=== PATIENT | male | born 1955 | race Caucasian/White ===

== ENCOUNTER 2018-06-24 04:25 | Inpatient (IN) | payer MEDICARE, OTHER, SELFPAY ==
[2018-06-24] VITALS (74 sets, daily range): BP systolic 102–145; BP diastolic 38–97; PULSE 65–83; RESP 8–36; TEMP 36.8–37.1; O2SAT 94–100
[2018-06-24] MEDS: Lactated Ringers 1,000 ML 1000 ML IV (04:33)
--- NOTE | 2018-06-24 04:36 | W.ED.GENAD ---
Discharge Plan Disposition Patient Disposition: [facility] INPATIENT Condition: Serious Discharge Details Chief Complaint: GI Bleed Clinical Impression: GI bleed, Chronic liver disease, Encephalopathy, hepatic Primary Care Provider: None,None ED Provider: Blake Zuniga [place] Meds and New Rx's Prescriptions: No Action nadolol 20 mg Tablet 20 mg PO DAILY RF: 0 lactulose 10 gram Packet 20 g PO DAILY RF: 0 Medical Decision Making Patient presenting with GI bleed. He is not tachycardic or hypotensive but he reports being on nadolol. He has been vomiting bile so this is not likely an upper GI source and definitely not variceal bleeding. 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 2 IVs are established. Labs including type and screen drawn and sent. Liter of LR and a dose of Zofran will be given. Patient's hemoglobin on the was close to 14. This morning it is down to 8. His ammonia is 150. His INR is 1.3. His platelets are 116. BUN is 57 with a creatinine of 0.85 suggesting an upper GI type bleed. I still suspect that he has a small bowel AVM as the cause of his GI bleed. I did speak to his GI physician at [facility]. Other than at some point confirming that the TIPS is still open and working normally there is nothing that they would necessarily do different other than transfuse and watch given the number of times he has been scoped previously to try to find the source. Patient discussed with our hospitalist, Dr. Mckenzie. I have ordered for 2 units of blood to be transfused and 2 units of blood to be available. CTA of the abdomen pelvis ordered to see if there is any blush in the intestinal tract. Blood bank informs me that the patient has multiple antibodies. Blood will need to come from the [facility] in [place]. His CTA is negative. Because of the lack of available blood here I did speak to [facility] hospitalist. They unfortunately are closed to transfers due to no beds. They have put the patient on list for transfer given the situation. He is stable here currently. I did speak to [facility] blood bank. For multiple antibodies they would also need to get blood from [place]. We will therefore keep the patient here in our ICU. We will try to stay ahead with blood and have four on hand at any one time. Case discussed with day hospitalist Dr. Wild. Patient admitted to the ICU. He remains hemodynamically stable while awaiting blood transfusion here Lab Data Lab results reviewed: Yes I reviewed the patient's lab results. ECG Data Attestation: I personally reviewed and interpreted this ECG (s) as follows: Prior ECG tracings: not available for review Interpretation: Sinus rhythm at 72. Normal axis and intervals. No ST changes. Normal EKG. HPI General Mode of arrival: EMS. Date/Time Provider Initiated Documentation: 06/24/18 04:33. Limitations to Documentation: no limitations. Information obtained by: patient. HPI Narrative: Patient presents by ambulance with a GI bleed. Patient has a history of liver disease status post TIPS. He also has esophageal varices which have been banded. He has had multiple episodes of GI bleeding. Typically they are unable to find the source according to him. His most recent GI bleed was last fall. He did receive transfusions. He has noticed black stool for the last day and a half. He is now noticing some reddish color in with a black stool. He has been vomiting but it is not coffee-ground or bloody. He is having bilious emesis. He does not have abdominal pain. He does feel weak, lightheaded and dizzy especially with standing. He denies having difficulty breathing. He had some chest tightness yesterday but not today. He has had episodes where he has had 1 or 2 black stools which then resolve. As this is been ongoing and he is becoming symptomatic he called EMS tonight. Related Data Home Medications Medication Instructions Recorded Confirmed lactulose 20 g PO DAILY 06/24/18 06/24/18 nadolol 20 mg PO DAILY 06/24/18 06/24/18 Allergies Allergy/AdvReac Type Severity Reaction Status Date / Time zolpidem [From Ambien] AdvReac Unverified 06/24/18 04:42 General Stated Complaint: GI Bleed BAKARI: 2 Review of Systems Constitutional Denies chills, Denies fever(s), Denies headache(s), Reports poor appetite and Reports weakness Eyes Denies change in vision and Denies eye pain ENT Denies vertigo, Reports dizziness, Denies otalgia, Denies facial pain, Denies headache(s), Denies nasal congestion, Denies neck pain and Denies sore throat Cardiovascular Reports chest pain (discomfort yesterday), Denies diaphoresis, Denies syncope, Reports lightheadedness, Denies palpitations and Denies dyspnea Respiratory Denies cough and Denies dyspnea Gastrointestinal Denies abdominal pain, Reports melena, Denies hematochezia, Denies coffee ground emesis, Reports loose stools, Reports nausea, Reports vomiting and Denies hematemesis Genitourinary Denies dysuria and Denies flank pain Musculoskeletal Denies back pain, Denies neck pain, Denies numbness and Denies tingling Integumentary/Breasts Denies rash Neurologic Denies vertigo, Reports dizziness, Denies syncope, Denies headache(s), Denies focal weakness, Denies numbness, Denies tingling and Reports weakness Endocrine Denies palpitations [facility] Medical History Esophageal varices (Chronic) Hepatitis C (Chronic) Liver disease, chronic (Chronic) Surgical History 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) Previous back surgery (Inactive) S/P hernia repair (Inactive) S/P shoulder surgery (Inactive) Social History Smoking/Tobacco Use Status: Never Alcohol Intake: current Alcohol Intake frequency: a few times a week Alcohol type: wine Substance use type: does not use Do you feel safe at home: Yes Do you feel safe in your relationship?: Yes Exam Const General: cooperative and no acute distress Orientation: alert and oriented x3 [facility] Head: normocephalic and atraumatic Mouth: moist mucous membranes Eyes Conjunctivae: conjunctival abnormality bilaterally pallor (mild) Sclera: sclerae normal Neck Neck: trachea midline and supple Resp Effort & Inspection: normal respiratory effort Auscultation: clear to auscultation bilaterally Cardio Rate: regular rate Rhythm: regular rhythm Heart Sounds: S1 normal and S2 normal Pulses: radial pulses present GI Inspection: normal to inspection and non-distended Palpation: soft, hepatosplenomegaly present, not firm and nontender Skin General skin exam: no jaundice and no pallor Rashes: no rashes Neuro General: alert, oriented x3, no focal motor deficits and CN's II-XI intact bilaterally Sensory Exam: no sensory deficits noted Extrem General: normal to inspection and no clubbing, cyanosis or edema Course Vital Signs Temperature 98.8 F 06/24/18 04:27 Pulse 82 06/24/18 04:27 Respiratory Rate 16 06/24/18 04:27 Blood Pressure 119/55 L 06/24/18 04:27 Pulse Oximetry 99 06/24/18 04:27 Temperature 98.8 F 06/24/18 04:27 Temperature Source Temporal Artery Scan 06/24/18 04:27 Pulse 82 06/24/18 04:27 Respiratory Rate 16 06/24/18 04:27 Blood Pressure 119/55 L 06/24/18 04:27 Blood Pressure Position Supine 06/24/18 04:27 Pulse Oximetry 99 06/24/18 04:27 Oxygen Delivery Method Room Air 06/24/18 04:27 Oxygen Flow Rate 0 06/24/18 04:27 Pain Level 0 06/24/18 04:27 Critical Care Time Critical Care Time: Yes Total Critical Care Time: 60 Attestation: GI Bleed
[2018-06-24 04:46] LABS: Abs Immature Grans 0.02 k/cumm (0.0-0.09); Absolute Basophil Count 0.01 k/cumm (0.0-0.2); Absolute Eosinophil Count 0.13 k/cumm (0.0-0.7); Absolute Lymphocyte Count 1.38 k/cumm (1.2-3.4); Absolute Monocyte Count 0.62 k/cumm (0.11-0.7); Absolute Neutrophil Count 3.01 k/cumm (1.2-6.7); Basophils % 0.2; Eosinophils % 2.5; HCT 23.8 % (40.0-50.0); HGB 8.4 g/dL (13.5-17.5); Immature Grans % 0.4; Lymphocytes % 26.7; Mean Corp. HGB Concentration 35.3 g/dL (32.0-36.0); Mean Corpuscular Hemoglobin 34.7 pg (27.0-33.0); Mean Corpuscular Volume 98.3 fL (80-95); Mean Platelet Volume 8.8 fL (8.0-11.0); Neutrophils % 58.2; Platelet Count 116 x1000/uL (130-400); RBC 2.42 m/cumm (4.50-6.00); RBC Distribution Width 13.5 % (11.8-14.1); White Blood Cell Count 5.17 k/cumm (4.4-10.8)
--- NOTE | 2018-06-24 04:50 | ED.GENADUL_ITS ---
Discharge Plan Disposition Patient Disposition: [facility] INPATIENT Condition: Serious Discharge Details Chief Complaint: GI Bleed Clinical Impression: GI bleed, Chronic liver disease, Encephalopathy, hepatic Primary Care Provider: None,None ED Provider: Blake Zuniga [place] Meds and New Rx's Prescriptions: No Action nadolol 20 mg Tablet 20 mg PO DAILY RF: 0 lactulose 10 gram Packet 20 g PO DAILY RF: 0 Medical Decision Making Patient presenting with GI bleed. He is not tachycardic or hypotensive but he reports being on nadolol. He has been vomiting bile so this is not likely an upper GI source and definitely not variceal bleeding. 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 2 IVs are established. Labs including type and screen drawn and sent. Liter of LR and a dose of Zofran will be given. Patient's hemoglobin on the was close to 14. This morning it is down to 8. His ammonia is 150. His INR is 1.3. His platelets are 116. BUN is 57 with a creatinine of 0.85 suggesting an upper GI type bleed. I still suspect that he has a small bowel AVM as the cause of his GI bleed. I did speak to his GI physician at [facility]. Other than at some point confirming that the TIPS is still open and working normally there is nothing that they would necessarily do different other than transfuse and watch given the number of times he has been scoped previously to try to find the source. Patient discussed with our hospitalist, Dr. Mckenzie. I have ordered for 2 units of blood to be transfused and 2 units of blood to be available. CTA of the abdomen pelvis ordered to see if there is any blush in the intestinal tract. Blood bank informs me that the patient has multiple antibodies. Blood will need to come from the [facility] in [place]. His CTA is negative. Because of the lack of available blood here I did speak to [facility] hospitalist. They unfortunately are closed to transfers due to no beds. They have put the patient on list for transfer given the situation. He is stable here currently. I did speak to [facility] blood bank. For multiple antibodies they would also need to get blood from [place]. We will therefore keep the patient here in our ICU. We will try to stay ahead with blood and have four on hand at any one time. Case discussed with day hospitalist Dr. Wild. Patient admitted to the ICU. He remains hemodynamically stable while awaiting blood transfusion here Lab Data Lab results reviewed: Yes I reviewed the patient's lab results. ECG Data Attestation: I personally reviewed and interpreted this ECG (s) as follows: Prior ECG tracings: not available for review Interpretation: Sinus rhythm at 72. Normal axis and intervals. No ST changes. Normal EKG. HPI General Mode of arrival: EMS . Date/Time Provider Initiated Documentation: 06/24/18 04:33 . Limitations to Documentation: no limitations . Information obtained by: patient . HPI Narrative: Patient presents by ambulance with a GI bleed. Patient has a history of liver disease status post TIPS. He also has esophageal varices which have been banded. He has had multiple episodes of GI bleeding. Typically they are unable to find the source according to him. His most recent GI bleed was last fall. He did receive transfusions. He has noticed black stool for the last day and a half. He is now noticing some reddish color in with a black stool. He has been vomiting but it is not coffee- ground or bloody. He is having bilious emesis. He does not have abdominal pain. He does feel weak, lightheaded and dizzy especially with standing. He denies having difficulty breathing. He had some chest tightness yesterday but not today. He has had episodes where he has had 1 or 2 black stools which then resolve. As this is been ongoing and he is becoming symptomatic he called EMS tonight. Related Data Home Medications Medication Instructions Recorded Confirmed lactulose 20 g PO DAILY 06/24/18 06/24/18 nadolol 20 mg PO DAILY 06/24/18 06/24/18 Allergies Allergy/AdvReac Type Severity Reaction Status Date / Time zolpidem [From Ambien] AdvReac Unverified 06/24/18 04:42 General Stated Complaint: GI Bleed BAKARI: 2 Review of Systems Constitutional Denies chills, Denies fever(s), Denies headache(s), Reports poor appetite and Reports weakness Eyes Denies change in vision and Denies eye pain ENT Denies vertigo, Reports dizziness, Denies otalgia, Denies facial pain, Denies headache(s), Denies nasal congestion, Denies neck pain and Denies sore throat Cardiovascular Reports chest pain (discomfort yesterday), Denies diaphoresis, Denies syncope, Reports lightheadedness, Denies palpitations and Denies dyspnea Respiratory Denies cough and Denies dyspnea Gastrointestinal Denies abdominal pain, Reports melena, Denies hematochezia, Denies coffee ground emesis, Reports loose stools, Reports nausea, Reports vomiting and Denies hematemesis Genitourinary Denies dysuria and Denies flank pain Musculoskeletal Denies back pain, Denies neck pain, Denies numbness and Denies tingling Integumentary/Breasts Denies rash Neurologic Denies vertigo, Reports dizziness, Denies syncope, Denies headache(s), Denies focal weakness, Denies numbness, Denies tingling and Reports weakness Endocrine Denies palpitations [facility] Medical History Esophageal varices (Chronic) Hepatitis C (Chronic) Liver disease, chronic (Chronic) Surgical History 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) Previous back surgery (Inactive) S/P hernia repair (Inactive) S/P shoulder surgery (Inactive) Social History Smoking/Tobacco Use Status: Never Alcohol Intake: current Alcohol Intake frequency: a few times a week Alcohol type: wine Substance use type: does not use Do you feel safe at home: Yes Do you feel safe in your relationship?: Yes Exam Const General: cooperative and no acute distress Orientation: alert and oriented x3 [facility] Head: normocephalic and atraumatic Mouth: moist mucous membranes Eyes Conjunctivae: conjunctival abnormality bilaterally pallor (mild) Sclera: sclerae normal Neck Neck: trachea midline and supple Resp Effort & Inspection: normal respiratory effort Auscultation: clear to auscultation bilaterally Cardio Rate: regular rate Rhythm: regular rhythm Heart Sounds: S1 normal and S2 normal Pulses: radial pulses present GI Inspection: normal to inspection and non-distended Palpation: soft, hepatosplenomegaly present, not firm and nontender Skin General skin exam: no jaundice and no pallor Rashes: no rashes Neuro General: alert, oriented x3, no focal motor deficits and CN's II-XI intact bilaterally Sensory Exam: no sensory deficits noted Extrem General: normal to inspection and no clubbing, cyanosis or edema Course Vital Signs Temperature 98.8 F 06/24/18 04:27 Pulse 82 06/24/18 04:27 Respiratory Rate 16 06/24/18 04:27 Blood Pressure 119/55 L 06/24/18 04:27 Pulse Oximetry 99 06/24/18 04:27 Temperature 98.8 F 06/24/18 04:27 Temperature Source Temporal Artery Scan 06/24/18 04:27 Pulse 82 06/24/18 04:27 Respiratory Rate 16 06/24/18 04:27 Blood Pressure 119/55 L 06/24/18 04:27 Blood Pressure Position Supine 06/24/18 04:27 Pulse Oximetry 99 06/24/18 04:27 Oxygen Delivery Method Room Air 06/24/18 04:27 Oxygen Flow Rate 0 06/24/18 04:27 Pain Level 0 06/24/18 04:27 Critical Care Time Critical Care Time: Yes Total Critical Care Time: 60 Attestation: GI Bleed
[2018-06-24 05:02] LABS: Ammonia 151 umol/L (11-32)
[2018-06-24] MEDS: Ondansetron 4 MG/2 ML VIAL IVP (05:04)
[2018-06-24 05:06] LABS: ALT 17 U/L (12-78); AST 20 U/L (15-37); Albumin 2.7 g/dL (3.4-5.0); Alkaline Phosphatase 69 U/L (46-116); Anion Gap 8.9 mmol/L (3-11); BUN 57 mg/dL (7-18); Bilirubin, Total 0.8 mg/dL (0.2-1.0); CO2 23.1 mmol/L (21.0-32.0); CREATININE 0.85 mg/dL (0.70-1.30); Chloride 107 mmol/L (98-107); Glucose 177 mg/dL (70-100); Hypochromasia 1+; Magnesium 1.7 mg/dL (1.8-2.4); Potassium 4.8 mmol/L (3.5-5.1); Sodium 139 mmol/L (136-145); Troponin I 0.06 ng/mL (0.00-0.06)
[2018-06-24 05:21] LABS: INR 1.3 (0.9-1.1); Prothrombin Time 12.8 sec (9.3-11.0)
--- NOTE | 2018-06-24 05:35 | NUR.NOTE ---
Nursing Note: OOB to BR with minimal assist. Pt is alert, mostly oriented, though does show signs of confusion in working his cell phone to pull up his portal from [facility]. Per pt portal hgb/hct 13.9, 39.1 on june 20 at approx 1000. aware.
[2018-06-24] MEDS: Omnipaque 350 MG/ML 100 ML BTL IJ (06:27)
--- NOTE | 2018-06-24 06:28 | DI.CT_ITS ---
SYMPTOM/DIAGNOSIS: GI BLEED ABDOMEN AND PELVIC CTA: CT angiography was performed with multi slice acquisition and multi planar and 3D reconstruction. No priors. The visualized lung bases are clear. The liver is normal in size. Note is made of a TIPS. No hepatic mass is seen. There are stones seen within the gallbladder. No biliary ductal dilatation is present. The pancreas, spleen and adrenal glands are unremarkable. There are non obstructing stones in the left kidney. The kidneys otherwise show normal and symmetric enhancement. No evidence of solid renal mass or obstruction. The urinary bladder is intact. The reproductive organs are unremarkable. The abdominal aorta is unremarkable without evidence of dissection or aneurysm. The superior mesenteric, celiac axis and inferior mesenteric arteries are unremarkable. No evidence of occlusion or significant stenosis. The iliac arteries are unremarkable without evidence of occlusion, dissection or significant stenosis. No significant abdominal or pelvic adenopathy, ascites or pneumoperitoneum is seen. The bowel is unremarkable. No evidence of obstruction or inflammation. Chronic changes are seen in the spine. No acute abnormality is identified. There is a marked left convex scoliosis. IMPRESSION; No evidence of acute abdominal arterial injury. No evidence of an acute abdomen.
--- NOTE | 2018-06-24 06:51 | NUR.NOTE ---
Nursing Note: Report given to Miguel Presley RN at this time. All questions answered.
--- NOTE | 2018-06-24 06:55 | DI.VRAD_ITS ---
EXAM: CT Angiography Abdomen and Pelvis With Contrast EXAM DATE/TIME: 06/24/2018 5:57 AM CLINICAL HISTORY: 63 years old, male; Signs and symptoms; Other: Gi bleed; Prior surgery; Surgery date: 6+ months; Surgery type: Hiatal hernia TECHNIQUE: Axial computed tomographic angiography images of the abdomen and pelvis with intravenous contrast material, including non-contrast images if performed. All CT scans at this facility use at least one of these dose optimization techniques: automated exposure control; mA and/or kV adjustment per patient size (includes targeted exams where dose is matched to clinical indication); or iterative reconstruction. MIP reconstructed images were created and reviewed. CONTRAST: Contrast Material: 100 ml of [id number]; Contrast Route: iv COMPARISON: No relevant prior studies available. FINDINGS: Tubes, catheters and devices: TIPS catheter noted. VASCULATURE: Aorta: No aortic aneurysm. No aortic dissection. Celiac trunk and mesenteric arteries: No occlusion or significant stenosis. Renal arteries: No occlusion or significant stenosis. Right iliac arteries: No occlusion or significant stenosis. Left iliac arteries: No occlusion or significant stenosis. ABDOMEN: Liver: No mass. Gallbladder and bile ducts: Cholelithiasis. Pancreas: Unremarkable. No mass. No ductal dilation. Spleen: Unremarkable. No splenomegaly. Adrenals: Unremarkable. No mass. Kidneys and ureters: Unremarkable. No solid mass. No hydronephrosis. Stomach and bowel: Unremarkable. No obstruction. No mucosal thickening. Appendix: No evidence of appendicitis. PELVIS: Bladder: Unremarkable. No mass. Reproductive: Unremarkable as visualized. ABDOMEN and PELVIS: Intraperitoneal space: Unremarkable. No free air. No significant fluid collection. Bones/joints: Degenerative changes and scoliosis of the spine. Soft tissues: Unremarkable. Lymph nodes: Unremarkable. No enlarged lymph nodes. IMPRESSION: No acute finding. Dictated and Authenticated by: Hank Bryant MD. Ordering:DAVIS Lozano MD
[2018-06-24] MEDS: PANTOPRAZOLE 80 MG in Normal Saline 100 ML 10 MG IV (08:22)
--- NOTE | 2018-06-24 11:15 | W.PM.DS.N ---
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 Mr. Urbina has a history of HCV, reportedly acquired via transfusion in the 1970's following a surgical procedure, and has undergone treatment for this. He also has associated Esophageal Varices s/p banding in the past, as well as a history of a TIPS procedure. The patient reports prior episodes of bleeding, described as dark and loose stools in the past - also states that he has had prior work-up for this in the form of EGD and Colonoscopy by his Business Representative team at [facility] without an obvious source identified (unfortunately records not available at this time). He has been transfused before, and has developed antibodies to PRBCs. He reports onset of dark stools 2 days ago, along with onset of weakness, dizziness, and nausea with vomiting of bilious material - denies any hematemesis or coffee ground emesis. He was transported to the hospital via EMS due to his symptoms. Work-up was significant for a hemoglobin of 8.4 (last reported in the s, although results not available) with an MCV of 98. His BUN is 57, with a normal creatinine of 0.8. His INR value was 1.3. He was also noted to have an elevated Ammonia, but admits to not taking his lactulose due to loose stools at home. CT Angiography performed of his abdomen and pelvis showed no acute findings. He was not found to be tachycardic, but has been mildly hypotensive with SBP in the 100-110's mostly. Given his history Mr. Urbina was accepted in transfer at [facility] for potential of need for a higher level of care, including access to IR or need for EGD. Currently suspect an upper source, but given bilious vomit suspect lack of variceal disease or peptic ulcers - potential for AVMs given prior negative work-up with EGD. Patient was noted to have antibodies to blood, and is now receiving his second unit of PRBCs - however, repeat H/H has actually gone down slightly but remains stable in the 8's. He is being transferred with his second unit being delivered, along with IVFs and a PPI Drip. He was not initiated on Octreotide. At time of discharge the patient remains stable. Patient was admitted and discharged in the same morning. Home Meds and New Rx's Prescriptions: Continued nadolol 20 mg Tablet 20 mg PO DAILY RF: 0 lactulose 10 gram Packet 20 g PO DAILY RF: 0 Discharge Orders Discharge Orders: Discharge Order (Routine); Ordered 06/24/18 Ordered By: Zuhair Wild DS: Data Vitals/I&O Vitals and I&O: Vital Signs Temperature 36.9 C 06/24/18 10:32 Temperature Source Temporal Artery Scan 06/24/18 09:26 Pulse 76 06/24/18 10:32 Pulse 77 06/24/18 09:46 Respiratory Rate 15 06/24/18 10:32 Respiratory Effort Non-Labored 06/24/18 09:26 Respiratory Depth Normal 06/24/18 09:26 Respiratory Pattern Normal 06/24/18 09:26 Blood Pressure 128/51 L 06/24/18 10:32 Blood Pressure Mean 63 06/24/18 09:46 Blood Pressure Position Supine 06/24/18 09:26 Pulse Oximetry 99 06/24/18 10:32 Oxygen Delivery Method Room Air 06/24/18 10:32 Oxygen Flow Rate 0 06/24/18 10:32 Pain Level 0 06/24/18 09:26 Intake & Output 06/23/18 06/23/18 06/24/18 11:59 23:59 11:59 Intake Total 1919 / 1919 Balance 1919 / 1919 Weight 87.5 kg Intake: IV 1020 / 1020 Blood Product 800 / 800 Rbc Leuko Reduced Unit 800 / 800 [id number] Other 100 / 100 Rbc Leuko Reduced Unit 100 / 100 [id number] Other: Emesis Description Bile # Bowel Movements 3 Completed studies during hospitalization [Text1]: EXAM: CT Angiography Abdomen and Pelvis With Contrast EXAM DATE/TIME: 06/24/2018 5:57 AM CLINICAL HISTORY: 63 years old, male; Signs and symptoms; Other: Gi bleed; Prior surgery; Surgery date: 6+ months; Surgery type: Hiatal hernia TECHNIQUE: Axial computed tomographic angiography images of the abdomen and pelvis with intravenous contrast material, including non-contrast images if performed. All CT scans at this facility use at least one of these dose optimization techniques: automated exposure control; mA and/or kV adjustment per patient size (includes targeted exams where dose is matched to clinical indication); or iterative reconstruction. MIP reconstructed images were created and reviewed. CONTRAST: Contrast Material: 100 ml of [id number]; Contrast Route: iv COMPARISON: No relevant prior studies available. FINDINGS: Tubes, catheters and devices: TIPS catheter noted. VASCULATURE: Aorta: No aortic aneurysm. No aortic dissection. Celiac trunk and mesenteric arteries: No occlusion or significant stenosis. Renal arteries: No occlusion or significant stenosis. Right iliac arteries: No occlusion or significant stenosis. Left iliac arteries: No occlusion or significant stenosis. ABDOMEN: Liver: No mass. Gallbladder and bile ducts: Cholelithiasis. Pancreas: Unremarkable. No mass. No ductal dilation. Spleen: Unremarkable. No splenomegaly. Adrenals: Unremarkable. No mass. Kidneys and ureters: Unremarkable. No solid mass. No hydronephrosis. Stomach and bowel: Unremarkable. No obstruction. No mucosal thickening. Appendix: No evidence of appendicitis. PELVIS: Bladder: Unremarkable. No mass. Reproductive: Unremarkable as visualized. ABDOMEN and PELVIS: Intraperitoneal space: Unremarkable. No free air. No significant fluid collection. Bones/joints: Degenerative changes and scoliosis of the spine. Soft tissues: Unremarkable. Lymph nodes: Unremarkable. No enlarged lymph nodes. IMPRESSION: No acute finding. Dictated and Authenticated by: Hank Bryant MD. Labs on day of discharge: Labs from last 24 hours 06/24/18 06/24/18 06/24/18 18:30 10:30 04:33 WBC 5.17 RBC 2.42 L Hgb Pending Pending 8.4 L Hct Pending Pending 23.8 L MCV 98.3 H MCH 34.7 H MCHC 35.3 RDW 13.5 Plt Count 116 L MPV 8.8 Immature Gran % 0.4 Neutrophils % 58.2 Lymphocytes % 26.7 Monocytes % 12.0 Eosinophils % 2.5 Basophils % 0.2 Absolute Neutrophils 3.01 Absolute Lymphocytes 1.38 Absolute Monocytes 0.62 Absolute Eosinophils 0.13 Absolute Basophils 0.01 RBC Morphology See below Hypochromasia 1+ PT INR Sodium Potassium Chloride Carbon Dioxide Anion Gap BUN Creatinine Estimated GFR/1.73 m2 Glucose Calcium Magnesium Total Bilirubin AST ALT Alkaline Phosphatase Ammonia Troponin I Total Protein Albumin Patient ABO/Rh Antibody Screen Antibody Identification Crossmatch 06/24/18 06/24/18 06/24/18 04:33 04:33 04:33 WBC RBC Hgb Hct MCV MCH MCHC RDW Plt Count MPV Immature Gran % Neutrophils % Lymphocytes % Monocytes % Eosinophils % Basophils % Absolute Neutrophils Absolute Lymphocytes Absolute Monocytes Absolute Eosinophils Absolute Basophils RBC Morphology Hypochromasia PT 12.8 H INR 1.3 H Sodium 139 Potassium 4.8 Chloride 107 Carbon Dioxide 23.1 Anion Gap 8.9 BUN 57 H Creatinine 0.85 Estimated GFR/1.73 m2 >= 60.00 Glucose 177 H Calcium 8.0 L Magnesium 1.7 L Total Bilirubin 0.8 AST 20 ALT 17 Alkaline Phosphatase 69 Ammonia Troponin I 0.06 Total Protein 5.0 L Albumin 2.7 L Patient ABO/Rh A Positive Antibody Screen Positive Antibody Identification Anti-c Crossmatch See Detail 06/24/18 04:33 WBC RBC Hgb Hct MCV MCH MCHC RDW Plt Count MPV Immature Gran % Neutrophils % Lymphocytes % Monocytes % Eosinophils % Basophils % Absolute Neutrophils Absolute Lymphocytes Absolute Monocytes Absolute Eosinophils Absolute Basophils RBC Morphology Hypochromasia PT INR Sodium Potassium Chloride Carbon Dioxide Anion Gap BUN Creatinine Estimated GFR/1.73 m2 Glucose Calcium Magnesium Total Bilirubin AST ALT Alkaline Phosphatase Ammonia 151 H Troponin I Total Protein Albumin Patient ABO/Rh Antibody Screen Antibody Identification Crossmatch [facility] Medical History Esophageal varices (Chronic) Hepatitis C (Chronic) Liver disease, chronic (Chronic) Surgical History 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) Previous back surgery (Inactive) S/P hernia repair (Inactive) S/P shoulder surgery (Inactive) Social History Smoking/Tobacco Use Status: Never Alcohol Intake: current Alcohol Intake frequency: a few times a week Alcohol type: wine Substance use type: does not use Do you feel safe at home: Yes Do you feel safe in your relationship?: Yes
[2018-06-24 11:52] LABS: HCT 23.4 % (40.0-50.0); HGB 8.2 g/dL (13.5-17.5)
--- NOTE | 2018-06-24 12:14 | DSE_ITS ---
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 obtain: Status: Acute Discharge Plan Disposition Patient Disposition: MIKE DOOLEY ([facility]) Condition: Serious Discharge Details Chief Complaint: GI Bleed Reason For Visit: GI BLEED Admit Date/Time: 06/24/18 08:10 Admit Provider: Zuhair Wild Attending Provider: Zuhair Wild Primary Care Provider: None,None ED Provider: Blake Zuniga [facility] Course Hospital Course: Pleasant 63 year old man with a past medical history significant for prior GI Bleeds, presents to [facility] Emergency Department with an acute onset GI Bleed. Mr. Urbina has a history of HCV, reportedly acquired via transfusion in the 1970's following a surgical procedure, and has undergone treatment for this. He also has associated Esophageal Varices s/p banding in the past, as well as a history of a TIPS procedure. The patient reports prior episodes of bleeding, described as dark and loose stools in the past - also states that he has had prior work-up for this in the form of EGD and Colonoscopy by his Transportation Services Representative team at [facility] without an obvious source identified (unfortunately records not available at this time). He has been transfused before, and has developed antibodies to PRBCs. He reports onset of dark stools 2 days ago, along with onset of weakness, dizziness, and nausea with vomiting of bilious material - denies any hematemesis or coffee ground emesis. He was transported to the hospital via EMS due to his symptoms. Work-up was significant for a hemoglobin of 8.4 (last reported in the s, although results not available) with an MCV of 98. His BUN is 57, with a normal creatinine of 0.8. His INR value was 1.3. He was also noted to have an elevated Ammonia, but admits to not taking his lactulose due to loose stools at home. CT Angiography performed of his abdomen and pelvis showed no acute findings. He was not found to be tachycardic, but has been mildly hypotensive with SBP in the 100-110's mostly. Given his history Mr. Urbina was accepted in transfer at [facility] for potential of need for a higher level of care, including access to IR or need for EGD. Currently suspect an upper source, but given bilious vomit suspect lack of variceal disease or peptic ulcers - potential for AVMs given prior negative work-up with EGD. Patient was noted to have antibodies to blood, and is now receiving his second unit of PRBCs - however, repeat H/H has actually gone down slightly but remains stable in the 8's. He is being transferred with his second unit being delivered, along with IVFs and a PPI Drip. He was not initiated on Octreotide. At time of discharge the patient remains stable. Patient was admitted and discharged in the same morning. Home Meds and New Rx's Prescriptions: Continued nadolol 20 mg Tablet 20 mg PO DAILY RF: 0 lactulose 10 gram Packet 20 g PO DAILY RF: 0 Discharge Orders Discharge Orders: Discharge Order (Routine); Ordered 06/24/18 Ordered By: Zuhair Wild DS: Data Vitals/I&O Vitals and I&O: Vital Signs Temperature 36.9 C 06/24/18 10:32 Temperature Source Temporal Artery Scan 06/24/18 09:26 Pulse 76 06/24/18 10:32 Pulse 77 06/24/18 09:46 Respiratory Rate 15 06/24/18 10:32 Respiratory Effort Non-Labored 06/24/18 09:26 Respiratory Depth Normal 06/24/18 09:26 Respiratory Pattern Normal 06/24/18 09:26 Blood Pressure 128/51 L 06/24/18 10:32 Blood Pressure Mean 63 06/24/18 09:46 Blood Pressure Position Supine 06/24/18 09:26 Pulse Oximetry 99 06/24/18 10:32 Oxygen Delivery Method Room Air 06/24/18 10:32 Oxygen Flow Rate 0 06/24/18 10:32 Pain Level 0 06/24/18 09:26 Intake & Output 06/23/18 06/23/18 06/24/18 11:59 23:59 11:59 Intake Total 1919 / 1919 Balance 1919 / 1919 Weight 87.5 kg Intake: IV 1020 / 1020 Blood Product 800 / 800 Rbc Leuko Reduced Unit 800 / 800 [id number] Other 100 / 100 Rbc Leuko Reduced Unit 100 / 100 [id number] Other: Emesis Description Bile # Bowel Movements 3 Completed studies during hospitalization [Text1]: EXAM: CT Angiography Abdomen and Pelvis With Contrast EXAM DATE/TIME: 06/24/2018 5:57 AM CLINICAL HISTORY: 63 years old, male; Signs and symptoms; Other: Gi bleed; Prior surgery; Surgery date: 6+ months; Surgery type: Hiatal hernia TECHNIQUE: Axial computed tomographic angiography images of the abdomen and pelvis with intravenous contrast material, including non-contrast images if performed. All CT scans at this facility use at least one of these dose optimization techniques: automated exposure control; mA and/or kV adjustment per patient size (includes targeted exams where dose is matched to clinical indication); or iterative reconstruction. MIP reconstructed images were created and reviewed. CONTRAST: Contrast Material: 100 ml of [id number]; Contrast Route: iv COMPARISON: No relevant prior studies available. FINDINGS: Tubes, catheters and devices: TIPS catheter noted. VASCULATURE: Aorta: No aortic aneurysm. No aortic dissection. Celiac trunk and mesenteric arteries: No occlusion or significant stenosis. Renal arteries: No occlusion or significant stenosis. Right iliac arteries: No occlusion or significant stenosis. Left iliac arteries: No occlusion or significant stenosis. ABDOMEN: Liver: No mass. Gallbladder and bile ducts: Cholelithiasis. Pancreas: Unremarkable. No mass. No ductal dilation. Spleen: Unremarkable. No splenomegaly. Adrenals: Unremarkable. No mass. Kidneys and ureters: Unremarkable. No solid mass. No hydronephrosis. Stomach and bowel: Unremarkable. No obstruction. No mucosal thickening. Appendix: No evidence of appendicitis. PELVIS: Bladder: Unremarkable. No mass. Reproductive: Unremarkable as visualized. ABDOMEN and PELVIS: Intraperitoneal space: Unremarkable. No free air. No significant fluid collection. Bones/joints: Degenerative changes and scoliosis of the spine. Soft tissues: Unremarkable. Lymph nodes: Unremarkable. No enlarged lymph nodes. IMPRESSION: No acute finding. Dictated and Authenticated by: Hank Bryant MD. Labs on day of discharge: Labs from last 24 hours 06/24/18 06/24/18 06/24/18 18:30 10:30 04:33 WBC 5.17 RBC 2.42 L Hgb Pending Pending 8.4 L Hct Pending Pending 23.8 L MCV 98.3 H MCH 34.7 H MCHC 35.3 RDW 13.5 Plt Count 116 L MPV 8.8 Immature Gran % 0.4 Neutrophils % 58.2 Lymphocytes % 26.7 Monocytes % 12.0 Eosinophils % 2.5 Basophils % 0.2 Absolute Neutrophils 3.01 Absolute Lymphocytes 1.38 Absolute Monocytes 0.62 Absolute Eosinophils 0.13 Absolute Basophils 0.01 RBC Morphology See below Hypochromasia 1+ PT INR Sodium Potassium Chloride Carbon Dioxide Anion Gap BUN Creatinine Estimated GFR/1.73 m2 Glucose Calcium Magnesium Total Bilirubin AST ALT Alkaline Phosphatase Ammonia Troponin I Total Protein Albumin Patient ABO/Rh Antibody Screen Antibody Identification Crossmatch 06/24/18 06/24/18 06/24/18 04:33 04:33 04:33 WBC RBC Hgb Hct MCV MCH MCHC RDW Plt Count MPV Immature Gran % Neutrophils % Lymphocytes % Monocytes % Eosinophils % Basophils % Absolute Neutrophils Absolute Lymphocytes Absolute Monocytes Absolute Eosinophils Absolute Basophils RBC Morphology Hypochromasia PT 12.8 H INR 1.3 H Sodium 139 Potassium 4.8 Chloride 107 Carbon Dioxide 23.1 Anion Gap 8.9 BUN 57 H Creatinine 0.85 Estimated GFR/1.73 m2 >= 60.00 Glucose 177 H Calcium 8.0 L Magnesium 1.7 L Total Bilirubin 0.8 AST 20 ALT 17 Alkaline Phosphatase 69 Ammonia Troponin I 0.06 Total Protein 5.0 L Albumin 2.7 L Patient ABO/Rh A Positive Antibody Screen Positive Antibody Identification Anti-c Crossmatch See Detail 06/24/18 04:33 WBC RBC Hgb Hct MCV MCH MCHC RDW Plt Count MPV Immature Gran % Neutrophils % Lymphocytes % Monocytes % Eosinophils % Basophils % Absolute Neutrophils Absolute Lymphocytes Absolute Monocytes Absolute Eosinophils Absolute Basophils RBC Morphology Hypochromasia PT INR Sodium Potassium Chloride Carbon Dioxide Anion Gap BUN Creatinine Estimated GFR/1.73 m2 Glucose Calcium Magnesium Total Bilirubin AST ALT Alkaline Phosphatase Ammonia 151 H Troponin I Total Protein Albumin Patient ABO/Rh Antibody Screen Antibody Identification Crossmatch [facility] Medical History Esophageal varices (Chronic) Hepatitis C (Chronic) Liver disease, chronic (Chronic) Surgical History 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) Previous back surgery (Inactive) S/P hernia repair (Inactive) S/P shoulder surgery (Inactive) Social History Smoking/Tobacco Use Status: Never Alcohol Intake: current Alcohol Intake frequency: a few times a week Alcohol type: wine Substance use type: does not use Do you feel safe at home: Yes Do you feel safe in your relationship?: Yes
== END 2018-06-24 12:30 | disposition short-term general hospital (02) | DRG 379 ==
LOC: ER 08:17 → ICU 09:23
PROVIDERS: Admitting Provider Internal Medicine; Emergency Provider Emergency Medicine; PCP Nurse Practitioner Family; Visit Provider Internal Medicine
DX: K92.2 Gastrointestinal hemorrhage, unspecified (principal); Z87.19 Personal history of other diseases of the digestive system; K74.60 Unspecified cirrhosis of liver; B18.2 Chronic viral hepatitis C; Z95.828 Presence of other vascular implants and grafts; R76.8 Other specified abnormal immunological findings in serum; I85.10 Secondary esophageal varices without bleeding
CPT/HCPCS: 36415; 36430; 80053; 86850; 86900; 86901; 86920; 93005; 96361; 96374; 99217; 99285; 74174; 82140; 83735; 84484; 85014; 85018; 85025; 85610; 86870; 86902; 93010; 99238; J3490; P9016

== ENCOUNTER 2018-08-09 10:25 | Emergency (ER) | payer MEDICARE, SELFPAY ==
[2018-08-09 10:29] VITALS: BP 174/86; PULSE 98; RESP 16; TEMP 36.6; O2SAT 99
--- NOTE | 2018-08-09 11:00 | W.ED.GENAD ---
Discharge Plan Disposition Patient Disposition: [facility] Condition: Stable Discharge Details Chief Complaint: PsychEval Clinical Impression: Depression with suicidal ideation Primary Care Provider: Katia Balnco ED Provider: Vic Ruano Home Meds and New Rx's Prescriptions: No Action lactulose 10 gram Packet 20 g PO DAILY RF: 0 pantoprazole [Protonix] 40 mg Tablet,Delayed Release (Dr/Ec) 40 mg PO BID RF: 0 Medical Decision Making Patient presenting to the emergency department for chief complaint of suicidal ideations. Patient reports that yesterday evening he got a DUI and was at the residential for sobriety before being released this morning. Just before being released patient informed staff that he was suicidal. Patient states that he has been having intermittent episodes of suicidality for the past year after his significant other left him due to him starting drinking again. Patient states that he has binges of 3 or 4 days of alcohol intake of vodka due to it helping his depression given break-up with significant other. Patient does state ongoing cirrhosis and gastric ulcer that he has been seen for recently. He does state history of hepatitis C but that he took medication to resolve this. He states some anxiety and mild headache but otherwise denies any other symptoms at this time. Physical exam is unremarkable for any diagnostic findings. Patient does appear slightly anxious and very tearful but is straightforward stating that he wants to . Patient reports plan of wanting to drink excessive amounts of alcohol and go into the royal and . Patient denies any homicidality. Patient has a lot of social stressors with his job being in jeopardy, loss of car, and possibly losing his home as well. Plan to check labs including normal psychiatric labs along with ammonia for patient's history. Pending results patient given his normally prescribed Protonix and Ativan for anxiety. At this time do not feel the patient is having symptoms of alcohol withdrawal and states that he typically does not have withdrawal symptoms given binge cycle. Review of labs show that patient is no longer intoxicated, ongoing anemia but no severe platelet dysfunction and review of previous labs show that patient has ongoing anemia. Review of CMP shows very mild increase of bilirubin otherwise normal hepatic function, mildly elevated ammonia, otherwise no worrisome findings on UDS UA or other labs. I feel the patient is fully clear for medical screening. Given mildly elevated ammonia patient was questioned about his daily use of lactulose which he states he has not taken in a couple days. Patient was ordered his normally prescribed lactulose to help with elevated ammonia otherwise patient is clear for psychiatric admission. Spoke to Dr. Sifuentes and reviewed the case with her and patient was accepted for admission under attending physician Dr. Gera Hawthorne. Patient was agreeable to this plan of care and appropriate transportation was arranged. HPI General Mode of arrival: ambulatory. Date/Time Provider Initiated Documentation: 08/09/18 10:26. Limitations to Documentation: no limitations. Information obtained by: patient and RN notes reviewed. History of Present Illness 63 year old M presents to the emergency department with the chief complaint of Suicidal ideation, with intensity rated at 6. Quality is described as aching, and is localized to the head. Patient started experiencing this year(s) (1) and it has been intermittent. Patient did receive the following treatments prior to arrival, none Related Data Home Medications Medication Instructions Recorded Confirmed lactulose 20 g PO DAILY 06/24/18 08/09/18 pantoprazole [Protonix] 40 mg PO BID 08/09/18 08/09/18 Allergies Allergy/AdvReac Type Severity Reaction Status Date / Time zolpidem [From Ambien] AdvReac Unverified 06/24/18 04:42 General Stated Complaint: PsychEval BAKARI: 2 Review of Systems Constitutional Denies body ache(s), Denies chills, Denies fever(s), Denies weight gain and Denies weight loss Eyes Denies change in vision ENT Denies sore throat and Denies throat swelling Cardiovascular Denies chest pain and Denies dyspnea Respiratory Denies cough and Denies dyspnea Gastrointestinal Denies abdominal pain, Denies diarrhea, Denies nausea and Denies vomiting Genitourinary Denies difficulty urinating and Denies dysuria Psychiatric Reports as per HPI, Reports depression, Denies homicidal ideation and Reports suicidal ideation Hematologic/Lymphatic Denies easy bleeding and Denies easy bruising Allergic/Immunologic Denies throat swelling [facility] Medical History Esophageal varices (Chronic) Hepatitis C (Chronic) Liver disease, chronic (Chronic) Surgical History 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) Previous back surgery (Inactive) S/P hernia repair (Inactive) S/P shoulder surgery (Inactive) Social History Smoking/Tobacco Use Status: Never Alcohol Intake: current Alcohol Intake frequency: 3 or more drinks per day Alcohol type: wine and hard liquor Substance use type: does not use and former substance user Do you feel safe at home: No (He is worried about doing something to himself) Do you feel safe in your relationship?: Yes Exam Const General: cooperative Orientation: alert, awake and oriented x3 Limitations: mental status not altered HENMT Head: normal to inspection, normocephalic and atraumatic Ears: hearing grossly normal bilaterally Eyes General: appearance normal, both eyes and all related structures Pupils: PERRL EOM: EOM intact bilaterally Neck Thyroid: thyroid normal Resp Effort & Inspection: normal respiratory effort, able to speak in complete sentences and no respiratory distress Auscultation: clear to auscultation bilaterally Cardio Rate: regular rate and not tachycardic Rhythm: regular rhythm Heart Sounds: S1 normal, S2 normal, no click, no gallops, no murmurs and no rubs GI Inspection: distended Palpation: soft and nontender Auscultation: normal bowel sounds Neuro General: alert, awake, oriented x3, gait normal, moves all extremities and no focal motor deficits Cognition: normal cognition Speech: speech normal Psych Speech and Movement: speech and movement normal and speech clear Mood: anxious mood Affect: sad Attitude: cooperative Thought Process: normal Thought Content: normal, no delusions, no homicidality and suicidality Course Vital Signs Temperature 36.6 C 08/09/18 10:29 Pulse 98 H 08/09/18 10:29 Respiratory Rate 16 08/09/18 10:29 Blood Pressure 174/86 H 08/09/18 10:29 Pulse Oximetry 99 08/09/18 10:29 Temperature 36.6 C 08/09/18 10:29 Temperature Source Skin 08/09/18 10:29 Pulse 98 H 08/09/18 10:29 Respiratory Rate 16 08/09/18 10:29 Respiratory Effort Non-Labored 08/09/18 10:33 Blood Pressure 174/86 H 08/09/18 10:29 Blood Pressure Position Sitting 08/09/18 10:29 Pulse Oximetry 99 08/09/18 10:29
[2018-08-09] MEDS: LORazepam 0.5 MG TAB PO ×2 (11:05→15:03)
[2018-08-09] MEDS: Pantoprazole 40 MG TABCR PO (11:06)
--- NOTE | 2018-08-09 11:09 | ED.GENADUL_ITS ---
Discharge Plan Disposition Patient Disposition: [facility] Condition: Stable Discharge Details Chief Complaint: PsychEval Clinical Impression: Depression with suicidal ideation Primary Care Provider: Katia Blanco ED Provider: Vic Ruano Home Meds and New Rx's Prescriptions: No Action lactulose 10 gram Packet 20 g PO DAILY RF: 0 pantoprazole [Protonix] 40 mg Tablet,Delayed Release (Dr/Ec) 40 mg PO BID RF: 0 Medical Decision Making Patient presenting to the emergency department for chief complaint of suicidal ideations. Patient reports that yesterday evening he got a DUI and was at the [facility] for sobriety before being released this morning. Just before being released patient informed staff that he was suicidal. Patient states that he has been having intermittent episodes of suicidality for the past year after his significant other left him due to him starting drinking again. Patient states that he has binges of 3 or 4 days of alcohol intake of vodka due to it helping his depression given break-up with significant other. Patient does state ongoing cirrhosis and gastric ulcer that he has been seen for recently. He does state history of hepatitis C but that he took medication to resolve this. He states some anxiety and mild headache but otherwise denies any other symptoms at this time. Physical exam is unremarkable for any diagnostic findings. Patient does appear slightly anxious and very tearful but is straightforward stating that he wants to . Patient reports plan of wanting to drink excessive amounts of alcohol and go into the royal and . Patient denies any homicidality. Patient has a lot of social stressors with his job being in jeopardy, loss of car, and possibly losing his home as well. Plan to check labs including normal psychiatric labs along with ammonia for patient's history. Pending results patient given his normally prescribed Protonix and Ativan for anxiety. At this time do not feel the patient is having symptoms of alcohol withdrawal and states that he typically does not have withdrawal symptoms given binge cycle. Review of labs show that patient is no longer intoxicated, ongoing anemia but no severe platelet dysfunction and review of previous labs show that patient has ongoing anemia. Review of CMP shows very mild increase of bilirubin otherwise normal hepatic function, mildly elevated ammonia, otherwise no worrisome findings on UDS UA or other labs. I feel the patient is fully clear for medical screening. Given mildly elevated ammonia patient was questioned about his daily use of lactulose which he states he has not taken in a couple days. Patient was ordered his normally prescribed lactulose to help with elevated ammonia otherwise patient is clear for psychiatric admission. Spoke to Dr. Sifuentes and reviewed the case with her and patient was accepted for admission under attending physician Dr. Gera Hawthorne. Patient was agreeable to this plan of care and appropriate transportation was arranged. HPI General Mode of arrival: ambulatory . Date/Time Provider Initiated Documentation: 08/09/18 10:26 . Limitations to Documentation: no limitations . Information obtained by: patient and RN notes reviewed . History of Present Illness 63 year old M presents to the emergency department with the chief complaint of Suicidal ideation, with intensity rated at 6. Quality is described as aching, and is localized to the head. Patient started experiencing this year(s) (1) and it has been intermittent. Patient did receive the following treatments prior to arrival, none Related Data Home Medications Medication Instructions Recorded Confirmed lactulose 20 g PO DAILY 06/24/18 08/09/18 pantoprazole [Protonix] 40 mg PO BID 08/09/18 08/09/18 Allergies Allergy/AdvReac Type Severity Reaction Status Date / Time zolpidem [From Ambien] AdvReac Unverified 06/24/18 04:42 General Stated Complaint: PsychEval BAKARI: 2 Review of Systems Constitutional Denies body ache(s), Denies chills, Denies fever(s), Denies weight gain and Denies weight loss Eyes Denies change in vision ENT Denies sore throat and Denies throat swelling Cardiovascular Denies chest pain and Denies dyspnea Respiratory Denies cough and Denies dyspnea Gastrointestinal Denies abdominal pain, Denies diarrhea, Denies nausea and Denies vomiting Genitourinary Denies difficulty urinating and Denies dysuria Psychiatric Reports as per HPI, Reports depression, Denies homicidal ideation and Reports suicidal ideation Hematologic/Lymphatic Denies easy bleeding and Denies easy bruising Allergic/Immunologic Denies throat swelling [facility] Medical History Esophageal varices (Chronic) Hepatitis C (Chronic) Liver disease, chronic (Chronic) Surgical History 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) Previous back surgery (Inactive) S/P hernia repair (Inactive) S/P shoulder surgery (Inactive) Social History Smoking/Tobacco Use Status: Never Alcohol Intake: current Alcohol Intake frequency: 3 or more drinks per day Alcohol type: wine and hard liquor Substance use type: does not use and former substance user Do you feel safe at home: No (He is worried about doing something to himself) Do you feel safe in your relationship?: Yes Exam Const General: cooperative Orientation: alert, awake and oriented x3 Limitations: mental status not altered HENMT Head: normal to inspection, normocephalic and atraumatic Ears: hearing grossly normal bilaterally Eyes General: appearance normal, both eyes and all related structures Pupils: PERRL EOM: EOM intact bilaterally Neck Thyroid: thyroid normal Resp Effort & Inspection: normal respiratory effort, able to speak in complete sentences and no respiratory distress Auscultation: clear to auscultation bilaterally Cardio Rate: regular rate and not tachycardic Rhythm: regular rhythm Heart Sounds: S1 normal, S2 normal, no click, no gallops, no murmurs and no rubs GI Inspection: distended Palpation: soft and nontender Auscultation: normal bowel sounds Neuro General: alert, awake, oriented x3, gait normal, moves all extremities and no focal motor deficits Cognition: normal cognition Speech: speech normal Psych Speech and Movement: speech and movement normal and speech clear Mood: anxious mood Affect: sad Attitude: cooperative Thought Process: normal Thought Content: normal, no delusions, no homicidality and suicidality Course Vital Signs Temperature 36.6 C 08/09/18 10:29 Pulse 98 H 08/09/18 10:29 Respiratory Rate 16 08/09/18 10:29 Blood Pressure 174/86 H 08/09/18 10:29 Pulse Oximetry 99 08/09/18 10:29 Temperature 36.6 C 08/09/18 10:29 Temperature Source Skin 08/09/18 10:29 Pulse 98 H 08/09/18 10:29 Respiratory Rate 16 08/09/18 10:29 Respiratory Effort Non-Labored 08/09/18 10:33 Blood Pressure 174/86 H 08/09/18 10:29 Blood Pressure Position Sitting 08/09/18 10:29 Pulse Oximetry 99 08/09/18 10:29
[2018-08-09 11:17] LABS: Abs Immature Grans 0.01 k/cumm (0.0-0.09); Absolute Basophil Count 0.01 k/cumm (0.0-0.2); Absolute Eosinophil Count 0.06 k/cumm (0.0-0.7); Absolute Lymphocyte Count 0.49 k/cumm (1.2-3.4); Absolute Neutrophil Count 2.36 k/cumm (1.2-6.7); Basophils % 0.3; Eosinophils % 1.9; HCT 30.2 % (40.0-50.0); HGB 9.2 g/dL (13.5-17.5); Immature Grans % 0.3; Lymphocytes % 15.2; Mean Corp. HGB Concentration 30.5 g/dL (32.0-36.0); Mean Corpuscular Hemoglobin 25.2 pg (27.0-33.0); Mean Corpuscular Volume 82.7 fL (80-95); Mean Platelet Volume 8.4 fL (8.0-11.0); Monocytes % 9.3; Platelet Count 142 x1000/uL (130-400); RBC 3.65 m/cumm (4.50-6.00); RBC Distribution Width 15.8 % (11.8-14.1); White Blood Cell Count 3.23 k/cumm (4.4-10.8)
[2018-08-09 11:18] LABS: Bilirubin Negative (Negative); Blood Trace-intact (Negative); Clarity Clear; Glucose 100 mg/dL (Negative); Ketones Negative (Negative); Leukocyte Esterase Negative (Negative); Nitrite Negative (Negative); Urobilinogen 0.2 EU/dL (Up TO 0.2); pH 7.5 (5-8)
[2018-08-09 11:27] LABS: *AMPHETAMINES SCREEN URINE Negative (Negative); *BARBITURATES SCREEN URINE Negative (Negative); *BENZODIAZEPINES SCREEN URINE Negative (Negative); Cannabinoids THC Negative (Negative); Cocaine Screen,Urine Negative (Negative); METHADONE URINE SCREEN Negative (Negative); OPIATES URINE SCREEN Negative (Negative)
[2018-08-09 11:32] LABS: Tricyclic Antidepressants Negative (Negative)
[2018-08-09 11:33] LABS: Ammonia 36 umol/L (11-32)
[2018-08-09 11:38] LABS: Bacteria Rare HPF (Negative); Casts Negative LPF (Negative); Crystals Negative HPF (Negative); Epithelial Cells Rare HPF (Negative); Mucus Negative (Negative); Other Cells Negative (Negative); WBC Negative HPF (0-5)
[2018-08-09 11:39] LABS: C & S Indicated? No
[2018-08-09 11:49] LABS: ALT 27 U/L (12-78); AST 28 U/L (15-37); Albumin 3.9 g/dL (3.4-5.0); Alkaline Phosphatase 103 U/L (46-116); Anion Gap 9.4 mmol/L (3-11); BUN 16 mg/dL (7-18); Bilirubin, Total 1.1 mg/dL (0.2-1.0); CO2 26.6 mmol/L (21.0-32.0); CREATININE 0.81 mg/dL (0.70-1.30); Calcium 8.8 mg/dL (8.5-10.1); Chloride 103 mmol/L (98-107); Glucose 137 mg/dL (70-100); Potassium 4.2 mmol/L (3.5-5.1); Sodium 139 mmol/L (136-145); TSH 0.86 uIU/mL (0.358-3.74); Total Protein 7.8 g/dL (6.4-8.2)
--- NOTE | 2018-08-09 11:59 | PDOC.MHCN ---
Date of service: 08/09/18 Time of Service: 11:59 Mental Health Crisis Note Presenting Issue How did you arrive at the ED and why did you come: Alonzo arrived at [facility] emergency room following a phone call from a [facility] legal services worker. Alonzo reported to her following release from a DUI charge last night that he was suicidal. The legal services worker called this residential mortgage underwriter and it was recommended she get him to an emergency room. Precipitating Factors Alonzo admits he is suicidal and has had untreated depression for many years. He reports significant loss in his family along with recent loss of a girlfriend. As a he reflects on these losses, he presents with symptoms of shame and low self worth. He presents with anhedonia, low energy, low motivation, and extreme sadness and frustration over several parts of his life. He reports a history of suicide attempts through cutting himself in up and down cuts to the forearm that could have killed him from loss of blood. He reports he was caught when he made these cuts. Today, he reports a plan that will involve him drinking himself to (he reports he will drink a gallon of Vodka and go in the royal to ). He denies homicidal ideation, planning, intent, or attempts. He also perseverates on an approximately 30 year old embezzlement charge that he focuses a lot of regret and hostile self-talk around. He does not seem able to recognize positive characteristics of himself or see how admitting things he has done today actually could help him move toward treatment/recovery. Disposition BEHAVIOR: cooperative, melancholic EYE CONTACT: poor MOOD: depressed AFFECT: flat APPETITE: fair SLEEP(trouble falling/staying asleep: poor Plan Alonzo will remain at [facility] for a voluntary admit to a psych. hospital. Information will be sent out to [facility], [facility], [facility], and [facility]. This residential mortgage underwriter will check for bed availability at [facility] and send paperwork to them if needed. Signature Clinician's Name/Title: Rex Castellano MA [facility]
[2018-08-09 12:03] LABS: Salicylate < 2.8 mg/dL (2.8-20.0)
[2018-08-09] MEDS: Ibuprofen 600 MG TAB PO (12:04)
[2018-08-09 12:07] LABS: Acetaminophen < 2 ug/mL (10-30)
[2018-08-09 12:09] LABS: ETHANOL BLOOD < 3.0 mg/dL (<3)
[2018-08-09] MEDS: Lactulose 20 GM/30 ML CUP PO (12:14)
--- NOTE | 2018-08-09 12:14 | PDOC.MHCN_ITS ---
Date of service: 08/09/18 Time of Service: 11:59 Mental Health Crisis Note Presenting Issue How did you arrive at the ED and why did you come: Alonzo arrived at [facility] emergency room following a phone call from a [facility] legal services worker. Alonzo reported to her following release from a DUI charge last night that he was suicidal. The legal services worker called this proposal manager writer and it was recommended she get him to an emergency room. Precipitating Factors Alonzo admits he is suicidal and has had untreated depression for many years. He reports significant loss in his family along with recent loss of a girlfriend. As a he reflects on these losses, he presents with symptoms of shame and low self worth. He presents with anhedonia, low energy, low motivation, and extreme sadness and frustration over several parts of his life. He reports a history of suicide attempts through cutting himself in up and down cuts to the forearm that could have killed him from loss of blood. He reports he was caught when he made these cuts. Today, he reports a plan that will involve him drinking himself to (he reports he will drink a gallon of Vodka and go in the royal to ). He denies homicidal ideation, planning, intent, or attempts. He also perseverates on an approximately 30 year old embezzlement charge that he focuses a lot of regret and hostile self-talk around. He does not seem able to [place] gnize positive characteristics of himself or see how admitting things he has done today actually could help him move toward treatment/recovery. Disposition BEHAVIOR: cooperative, melancholic EYE CONTACT: poor MOOD: depressed AFFECT: flat APPETITE: fair SLEEP(trouble falling/staying asleep: poor Plan Alonzo will remain at [facility] for a voluntary admit to a psych. hospital. Information will be sent out to [facility], [facility], [facility], and [facility]. This proposal manager writer will check for bed availability at [facility] and send paperwork to them if needed. Signature Clinician's Name/Title: Rex Castellano MA [facility]
[2018-08-09] MEDS: Acetaminophen 325 MG TAB PO (12:15)
[2018-08-09 15:09] VITALS: BP 158/64; PULSE 84; RESP 16; TEMP 36.6; O2SAT 99
--- NOTE | 2018-08-09 15:17 | NUR.NOTE ---
Nursing Note: Attempted to call nursing report to [facility], to the 3rd floor psych facility. They requested to take a message and call back. This loan underwriter spoke to gordo.
== END 2018-08-09 15:10 ==
PROVIDERS: Emergency Provider Nurse Practitioner Family; PCP Nurse Practitioner Family
DX: F41.8 Other specified anxiety disorders (principal); R45.851 Suicidal ideations; D64.9 Anemia, unspecified; F10.10 Alcohol abuse, uncomplicated; K74.60 Unspecified cirrhosis of liver
CPT/HCPCS: 36415; 80053; 80307; 99285; 80320; 80329; 81003; 81015; 82140; 84443; 85025; 99284

== ENCOUNTER 2018-12-15 18:10 | Outpatient (REF) | payer MEDICARE, SELFPAY ==
[2018-12-15 19:12] LABS: HGB 11.1 g/dL (13.5-17.5); Mean Corp. HGB Concentration 31.7 g/dL (32.0-36.0); Mean Corpuscular Hemoglobin 26.6 pg (27.0-33.0); Mean Corpuscular Volume 83.7 fL (80-95); Mean Platelet Volume 9.6 fL (8.0-11.0); Platelet Count 177 x1000/uL (130-400); RBC 4.18 m/cumm (4.50-6.00); RBC Distribution Width 15.4 % (11.8-14.1); White Blood Cell Count 3.41 k/cumm (4.4-10.8)
[2018-12-15 19:24] LABS: ALT 26 U/L (16-63); AST 21 U/L (15-37); Albumin 3.6 g/dL (3.4-5.0); Alkaline Phosphatase 91 U/L (46-116); Anion Gap 11.9 mmol/L (3-11); BUN 21 mg/dL (7-18); CO2 21.1 mmol/L (21.0-32.0); CREATININE 1.08 mg/dL (0.70-1.30); Calcium 8.8 mg/dL (8.5-10.1); Chloride 110 mmol/L (98-107); Glucose 196 mg/dL (70-100); Sodium 143 mmol/L (136-145); Total Protein 6.9 g/dL (6.4-8.2)
== END 2018-12-15 18:30 ==
LOC: NCHCN 18:10
PROVIDERS: PCP Nurse Practitioner Family; Visit Provider Nurse Practitioner Family
DX: G04.90 Encephalitis and encephalomyelitis, unspecified (principal); K74.60 Unspecified cirrhosis of liver
CPT/HCPCS: 80053; 85027

== ENCOUNTER 2019-02-01 11:06 | Observation (INO) | payer MEDICARE, SELFPAY ==
[2019-02-01] VITALS (20 sets, daily range): BP systolic 147–195; BP diastolic 61–120; PULSE 65–97; RESP 9–22; TEMP 36.7–38; O2SAT 96–100
--- NOTE | 2019-02-01 11:36 | DI.CT_ITS ---
EXAM: CT HEAD - STROKE PROTOCOL CLINICAL HISTORY: Altered mental status, difficulty speech TECHNIQUE: Noncontrast cranial CT was performed. COMPARISON: No exams were available for comparison FINDINGS: There is moderate generalized cerebral atrophy and there is prominent patchy white matter loss of att enuation bilaterally consistent with microvascular ischemic change. No evidence of acute intracranial hemorrhage. Paranasal sinuses are well aerated. Minimal increased radiodensity in right mastoid air cells may represent serous mastoiditis. Left mastoid air cells ar e clear. Orbital structures appear intact. IMPRESSION: No evidence of acute intracranial process.
--- NOTE | 2019-02-01 11:55 | ED.GENADUL_ITS ---
Discharge Plan Disposition Patient Disposition: [facility] INPATIENT Condition: Stable Discharge Details Chief Complaint: CVA/TIA Clinical Impression: Acute hepatic encephalopathy, Pancytopenia Primary Care Provider: Katia Blanco ED Provider: Vic Ruano Home Meds and New Rx's Prescriptions: No Action lactulose 10 gram Packet 20 g PO DAILY RF: 0 pantoprazole [Protonix] 40 mg Tablet,Delayed Release (Dr/Ec) 40 mg PO BID RF: 0 lisinopril 20 mg Tablet 20 mg PO DAILY RF: 0 Medical Decision Making Patient presenting to the emergency department for chief complaint of confusion. Patient states approximately 8 AM this morning he started having some confusion and difficulty finding words. Patient denies any injury or trauma or pain. Patient has known liver disease but denies any abdominal pain, nausea vomiting or diarrhea or cold-like symptoms. Physical exam shows no acute focal neurological findings, reflexes equal bilateral and appropriate, patient is alert and oriented x4, appropriate word and object identification normal cardiac and respiratory exam. Review of vital signs shows that patient has mildly hypertensive and borderline afebrile even though he denies any cold-like symptoms. We will have staffing associate recheck temperature. Plan to check labs including head CT and EKG. At this time I doubt CVA TIA but more worried for hepatic encephalopathy. Patient does have history of TIPS procedure and patient does state previous episodes of confusion. Head CT shows atrophy but no acute findings. Review of labs show a pancytopenia with hemoglobin of 11.4, WBCs of 2.14, platelets of 124. Review of previous results have showed similar laboratory findings in the past. CMP shows mildly elevated sodium of 146, chloride of 111, BUN of 19, bilirubin mildly elevated at 1.2 but AST ALT and alk phos are all within normal limits. Ammonia is 76, and troponin is less than 0.05. Chest x-ray is also negative. Patient given lactulose due to elevated ammonia 1 hour later patient was reassessed and stated some mild improvement but not feeling 100% better. Plan to give additional dose of lactulose and reassess. Patient continued to admit continued episodes of confusion. I am concerned about discharging patient due to fact that he lives alone and more than likely w ill continue to forget to take lactulose. While work-up is overall benign I am concerned for patient's encephalopathy continuing to worsen due to inability to remember to take continue lactulose dosing. Given these facts I spoke with Dr. Renteria who agreed to admit patient for further observation and treatment ECG Data Attestation: I personally reviewed and interpreted this ECG (s) as follows: Interpretation: EKG reviewed with Dr. Phillips and shows sinus rhythm, rate of 72, no STEMI, nondiagnostic HPI General Mode of arrival: ambulatory . Date/Time Provider Initiated Documentation: 02/01/19 11:14 . Limitations to Documentation: no limitations . Information obtained by: patient and RN notes reviewed . History of Present Illness 63 year old M presents to the emergency department with the chief complaint of Confusion, described as severe, Quality is described as other (Denies any pain or discomfort), Patient started experiencing this hour(s) (2) and it has been constant. No relieving factors improve symptom(s), No exacerbating factors reported . Patient notes no other symptoms.. Patient did receive the following treatments prior to arrival, none Related Data Home Medications Medication Instructions Recorded Confirmed lactulose 20 g PO DAILY 06/24/18 02/01/19 pantoprazole [Protonix] 40 mg PO BID 08/09/18 02/01/19 lisinopril 20 mg PO DAILY 02/01/19 02/01/19 Allergies Allergy/AdvReac Type Severity Reaction Status Date / Time zolpidem [From Ambien] AdvReac Unverified 02/01/19 11:22 General Stated Complaint: CVA/TIA BAKARI: 2 Review of Systems Constitutional Constitutional: Denies body ache(s), Denies chills, Denies fever(s), Denies headache(s), Denies malaise and Denies weakness Eyes Eyes: Denies change in vision ENT Ears, Nose, Mouth, and Throat: Denies dizziness and Denies headache(s) Cardiovascular Cardiovascular: Denies chest pain and Denies syncope Gastrointestinal Gastrointestinal: Denies nausea and Denies vomiting Musculoskeletal Musculoskeletal: Denies tingling Neurologic Neurologic: Reports as per HPI, Reports confusion, Denies dizziness, Denies syncope, Denies headache(s), Denies focal weakness, Denies memory loss, Denies sensory deficit, Denies tingling, Denies paresthesias and Denies weakness Psychiatric Psychiatric: Reports confusion and Denies memory loss [facility] Social History Smoking/Tobacco Use Status: Never Alcohol Intake: current Alcohol Intake frequency: 3 or more drinks per day Alcohol type: wine and hard liquor Substance use type: does not use and former substance user Do you feel safe at home: No (He is worried about doing something to himself) Do you feel safe in your relationship?: Yes Exam Const General: cooperative, healthy appearing, no acute distress and well groomed Orientation: alert, awake and oriented x3 HENMT Head: normal to inspection Ears: hearing grossly normal bilaterally and TM's normal bilaterally Mouth: oral mucosae normal and moist mucous membranes Throat: posterior oropharynx normal Eyes Visual Dejesus: normal visual dejesus by confrontation Alignment and Position: alignment normal Periorbital: periorbital findings normal Eyelids: eyelids normal Sclera: sclerae normal Cornea: corneas normal Pupils: PERRL EOM: EOM intact bilaterally Neck Neck: normal visual inspection, full ROM, no lymphadenopathy and no meningeal signs Resp Effort & Inspection: normal respiratory effort and able to speak in complete sentences Auscultation: clear to auscultation bilaterally Cardio Rate: regular rate Rhythm: regular rhythm Heart Sounds: S1 normal and S2 normal GI Inspection: distended Palpation: soft, not firm, no guarding and tender in the RUQ (mild) Neuro General: alert, awake, oriented x3, gait normal, tone normal, moves all extremities, CN's II-XI intact bilaterally and not confused Cognition: normal cognition Speech: speech normal Motor: muscle tone normal throughout, strength 5/5 throughout, no pronator drift, no movement abnormalities noted and no fasciculations Sensory Exam: no sensory deficits noted DTR's: Rt Biceps: 1+, Lt Biceps: 1+, Rt Brachioradialis: 1+, Lt Brachioradialis: 1+, Rt Patellar: 2+, Lt Patellar: 2+, Rt Ankle: 2+ and Lt Ankle: 2+ Coordination: [id number] test normal, Romberg test normal and Does not sway with eyes open Course Vital Signs Vital signs: Vital Signs Temperature 38.0 C H 02/01/19 11:16 Pulse 97 H 02/01/19 11:16 Respiratory Rate 15 02/01/19 11:16 Blood Pressure 172/74 H 02/01/19 11:16 Pulse Oximetry 98 02/01/19 11:16 Temperature 38.0 C H 02/01/19 11:16 Temperature Source Temporal Artery Scan 02/01/19 11:16 Pulse 97 H 02/01/19 11:16 Respiratory Rate 15 02/01/19 11:16 Respiratory Effort Non-Labored 02/01/19 11:21 Blood Pressure 172/74 H 02/01/19 11:16 Blood Pressure Position Supine 02/01/19 11:16 Pulse Oximetry 98 02/01/19 11:16 Oxygen Delivery Method Room Air 02/01/19 11:16 Oxygen Flow Rate 0 02/01/19 11:16 Pain Level 0 02/01/19 11:16
--- NOTE | 2019-02-01 12:01 | DI.RAD_ITS ---
EXAM: XR CHEST 2V PA LATERAL CLINICAL HISTORY: AMS, confusion TECHNIQUE: The exam was performed according to usual protocol. COMPARISON: No exams were available for comparison FINDINGS: Heart is not enlarged. Lungs are predominantly clear with some predominantly linear areas of bibasil ar scarring or atelectasis. No gross consolidation seen. No pleural effusion seen. IMPRESSION: No evidence of acute process.
[2019-02-01 12:03] LABS: Absolute Basophil Count 0.02 k/cumm (0.0-0.2); Absolute Lymphocyte Count 0.47 k/cumm (1.2-3.4); Absolute Monocyte Count 0.22 k/cumm (0.11-0.7); Absolute Neutrophil Count 1.33 k/cumm (1.2-6.7); Basophils % 0.9; Eosinophils % 4.7; HCT 35.8 % (40.0-50.0); HGB 11.4 g/dL (13.5-17.5); Mean Corp. HGB Concentration 31.8 g/dL (32.0-36.0); Mean Corpuscular Hemoglobin 26.1 pg (27.0-33.0); Mean Corpuscular Volume 81.9 fL (80-95); Mean Platelet Volume 8.5 fL (8.0-11.0); Monocytes % 10.3; Neutrophils % 62.1; Platelet Count 124 x1000/uL (130-400); RBC 4.37 m/cumm (4.50-6.00); RBC Distribution Width 14.6 % (11.8-14.1); White Blood Cell Count 2.14 k/cumm (4.4-10.8)
[2019-02-01 12:10] LABS: ALT 25 U/L (16-63); AST 25 U/L (15-37); Albumin 3.7 g/dL (3.4-5.0); Alkaline Phosphatase 91 U/L (46-116); Anion Gap 10.4 mmol/L (3-11); BUN 19 mg/dL (7-18); Bilirubin, Total 1.2 mg/dL (0.2-1.0); CO2 24.6 mmol/L (21.0-32.0); Calcium 9.1 mg/dL (8.5-10.1); Chloride 111 mmol/L (98-107); Glucose 159 mg/dL (70-100); Magnesium 1.8 mg/dL (1.8-2.4); Potassium 3.8 mmol/L (3.5-5.1); Sodium 146 mmol/L (136-145); Total Protein 7.3 g/dL (6.4-8.2)
[2019-02-01 12:12] LABS: Troponin I < 0.05 ng/mL (0.00-0.06)
[2019-02-01 12:18] LABS: Ammonia 76 umol/L (11-32); ETHANOL BLOOD < 3.0 mg/dL (<3)
[2019-02-01 12:28] LABS: Bilirubin Negative (Negative); Blood Negative (Negative); Clarity Clear (Clear); Glucose Negative (Negative); Ketones Negative (Negative); Leukocyte Esterase Negative (Negative); Nitrite Negative (Negative); Urobilinogen 0.2 EU/dL (Up TO 0.2); pH 6.5 (5-8)
[2019-02-01 12:35] LABS: *AMPHETAMINES SCREEN URINE Negative (Negative); *BARBITURATES SCREEN URINE Negative (Negative); *BENZODIAZEPINES SCREEN URINE Negative (Negative); Cannabinoids THC Negative (Negative); Cocaine Screen,Urine Negative (Negative); METHADONE URINE SCREEN Negative (Negative); OPIATES URINE SCREEN Negative (Negative)
[2019-02-01] MEDS: Lactulose 20 GM/30 ML CUP PO ×5 (12:41→21:46)
[2019-02-01 12:50] LABS: Tricyclic Antidepressants Negative (Negative)
[2019-02-01] MEDS: Normal Saline 1,000 ML 1000 ML IV (12:58)
[2019-02-01 13:02] LABS: Bacteria Few HPF (Negative); C & S Indicated? No; Casts Negative LPF (Negative); Crystals Negative HPF (Negative); Epithelial Cells Rare HPF (Negative); Mucus Moderate (Negative); RBC 0-2 (0-2); WBC 0-2 HPF (0-5)
[2019-02-01] MEDS: Lisinopril 10 MG TAB 20 MG PO (14:15)
--- NOTE | 2019-02-01 18:08 | HPE_ITS ---
Date of service: 02/01/19 Time of Service: 18:08 Assessment and Plan Assessment and plan (1) Hepatic encephalopathy: Status: Acute Assessment and plan: Will increase frequency of lactulose. The patient states he had been tried on rifaxamine before - will investigate this further, because if his symptoms keep recurring on lactulose, perhaps we could use them in combination. Reassess in am. Target is for 3-6 liquid BM's per day. (2) Hypertension: Status: Chronic Assessment and plan: uncontrolled. The patient did miss his morning dose of lisinopril today. Per records, he did get it in ED. We will add norvasc today - and I will write for prn clonidine tonight if needed. (3) Cirrhosis: Status: Chronic Assessment and plan: S/p TIPS procedure, with known varices. Check INR in am. low sodium diet (4) Hepatitis C: Status: Chronic Assessment and plan: Follow up as outpatient (5) DVT prophylaxis: Status: Acute Assessment and plan: TEDs/SCD's - avoid chemical DVT ppx due to known esophageal varices and h/o GI bleeding. (6) Discharge planning issues: Status: Acute Assessment and plan: DNR/DNI Needs to discuss insurance issues with care management and DPOA. Palliative care consult for advanced directives discussion. History of Present Illness History of Present Illness Chief Complaint: Difficulty finding the right words and stuttering Narrative: Mr Urbina is a 63 year old male with PMHx of cirrhosis due to hepatitis C and alcohol abuse with h/o variceal bleeding, s/p TIPs procedure, who has chronic hepatic encephalopathy, usually maintained on lactulose therapy, as well as history of hypertension, pancytopenia, insomnia, who presented to [facility] ED today after waking up this morning not being able to find the right words and stuttering, and this was getting progressively worse throughout the day. The patient normally takes lactulose 5-6 times per day to try to have 5-6 bowel movements per day, which keeps his mind clear. However, he went to bed early last night, which means that he missed his night time doses of lactulose. The last time he had a bowel movement was yesterday afternoon. He states that his encephalopathy always presents like this, stuttering, and one time it was even confused for a stroke. In the ED, his exam and workup were consistent with hepatic encephalopathy with ammonia level of 76. We were asked to observe the patient on the hospitalist service until resolution of his acute encephalopathic episode. Review of Systems Narrative: 12 systems reviewed. Pertinent positives and negatives are as per HPI. Additionally, the patient denies any chills, sore throat, cough. Endorses rhinorrhea. He also states that his abdomen has been a little bit more distended over the last 2-3 days. No abdominal pain. [facility] Medical History (Updated 02/01/19 @ 18:30 by Jessica Renteria MD) Cirrhosis (Chronic) Esophageal varices (Chronic) Hepatic encephalopathy (Acute) Hepatitis C (Chronic) History of GI bleed (Inactive) variceal Hypertension (Chronic) Liver disease, chronic (Chronic) Pancytopenia (Acute) Surgical History (Updated 02/01/19 @ 18:17 by Jessica Renteria MD) Previous back surgery (Inactive) S/P hernia repair (Inactive) S/P shoulder surgery (Inactive) 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) Family History (Updated 02/01/19 @ 18:19 by Jessica Renteria MD) Mother Breast cancer Sister Breast cancer Heart disease Diabetes Sister Breast cancer Hypertension Brother Cancer leukemia Brother Heart disease Diabetes Hypertension Maternal Grandmother Heart disease Father Diabetes Hypertension Social History (Updated 02/01/19 @ 18:20 by Jessica Renteria MD) Smoking/Tobacco Use Status: Never Alcohol Intake: former Year quit: 2019 Substance use type: does not use and former substance user Do you feel safe at home: No (He is worried about doing something to himself) Do you feel safe in your relationship?: Yes Meds Home Medications and Allergies Home Medications Medication Instructions Recorded Confirmed Type lactulose 20 g PO 6X/DAY 06/24/18 02/01/19 History pantoprazole [Protonix] 40 mg PO BID 08/09/18 02/01/19 History lisinopril 20 mg PO DAILY 02/01/19 02/01/19 History Allergies Allergy/AdvReac Type Severity Reaction Status Date / Time zolpidem [From Ambien] AdvReac Unverified 02/01/19 11:22 Exam Narrative Exam Narrative: General: Very pleasant Middle-aged male, A&Ox3, does seem to have very slight hesitancy with some words, but otherwise very fluent and appropriate with his word choice, excellent history provider, A&Ox3 Neurological: A&Ox3, + asterexis, slight hesitancy with finding a few words, but otherwise speech intact, no focal deficits Psychiatric: appropriate speech pattern/content Skin: visible skin intact HEENT: Atraumatic, normocephalic, EOMI, MMM, R ear appears malformed, no goiter or JVD Cardiovascular: RRR, no m/r/g Lungs: CTAB Gastrointestinal: abdomen soft, I am not convinced I feel ascites, nontender, possibly minimally distended Extremities: +1 BLE edema, no c/c. Results Imaging Additional studies: CXR: No evidence of acute process. CT head: No evidence of acute intracranial process. Labs Result diagrams: 02/01/19 11:45 02/01/19 11:45 Labs: Laboratory Results - last 24 hr 02/01/19 02/01/19 02/01/19 11:45 11:45 11:45 WBC 2.14 L RBC 4.37 L Hgb 11.4 L Hct 35.8 L MCV 81.9 MCH 26.1 L MCHC 31.8 L RDW 14.6 H Plt Count 124 L MPV 8.5 Immature Gran % 0.0 Neutrophils % 62.1 Lymphocytes % 22.0 Monocytes % 10.3 Eosinophils % 4.7 Basophils % 0.9 Absolute Neutrophils 1.33 Absolute Lymphocytes 0.47 L Absolute Monocytes 0.22 Absolute Eosinophils 0.10 Absolute Basophils 0.02 Sodium 146 H Potassium 3.8 Chloride 111 H Carbon Dioxide 24.6 Anion Gap 10.4 BUN 19 H Creatinine 1.00 Estimated GFR/1.73 m2 >= 60.00 Glucose 159 H Calcium 9.1 Magnesium 1.8 Total Bilirubin 1.2 H AST 25 ALT 25 Alkaline Phosphatase 91 Ammonia Troponin I < 0.05 Total Protein 7.3 Albumin 3.7 Urine Color Urine Clarity Urine pH Ur Specific [place] Urine Protein Urine Ketones Urine Blood Urine Nitrite Urine Bilirubin Urine Urobilinogen Ur Leukocyte Esterase Urine RBC Urine WBC Ur Epithelial Cells Urine Crystals Urine Bacteria Urine Casts Urine Mucus Ur Culture Indicated? Urine Glucose Urine Opiates Screen Urine Methadone Screen Ur Barbiturates Screen Ur Tricyclics Screen Ur Amphetamines Screen U Benzodiazepines Scrn Urine Cocaine Screen Ur THC Screen Ethyl Alcohol < 3.0 02/01/19 02/01/19 02/01/19 11:45 12:15 12:15 WBC RBC Hgb Hct MCV MCH MCHC RDW Plt Count MPV Immature Gran % Neutrophils % Lymphocytes % Monocytes % Eosinophils % Basophils % Absolute Neutrophils Absolute Lymphocytes Absolute Monocytes Absolute Eosinophils Absolute Basophils Sodium Potassium Chloride Carbon Dioxide Anion Gap BUN Creatinine Estimated GFR/1.73 m2 Glucose Calcium Magnesium Total Bilirubin AST ALT Alkaline Phosphatase Ammonia 76 H Troponin I Total Protein Albumin Urine Color Yellow Urine Clarity Clear Urine pH 6.5 Ur Specific [place] 1.020 Urine Protein 30 H Urine Ketones Negative Urine Blood Negative Urine Nitrite Negative Urine Bilirubin Negative Urine Urobilinogen 0.2 Ur Leukocyte Esterase Negative Urine RBC 0-2 Urine WBC 0-2 Ur Epithelial Cells Rare Urine Crystals Negative Urine Bacteria Few Urine Casts Negative Urine Mucus Moderate Ur Culture Indicated? No Urine Glucose Negative Urine Opiates Screen Negative Urine Methadone Screen Negative Ur Barbiturates Screen Negative Ur Tricyclics Screen Negative Ur Amphetamines Screen Negative U Benzodiazepines Scrn Negative Urine Cocaine Screen Negative Ur THC Screen Negative Ethyl Alcohol Last Vital Signs Temp 37.4 C 02/01/19 17:42 Pulse 72 02/01/19 17:42 Resp 16 02/01/19 17:42 BP 195/97 H 02/01/19 17:42 Pulse Ox 99 02/01/19 17:42
[2019-02-01] MEDS: amLODIPine 5 MG TAB PO (18:29)
[2019-02-02 00:36] VITALS: BP 145/71; PULSE 80; RESP 17; TEMP 37.4; O2SAT 97
[2019-02-02 05:37] VITALS: BP 142/75; PULSE 60; RESP 18; TEMP 37.4; O2SAT 95
[2019-02-02] MEDS: Lactulose 20 GM/30 ML CUP PO ×3 (06:41→12:25)
[2019-02-02 07:25] LABS: Absolute Basophil Count 0.02 k/cumm (0.0-0.2); Absolute Eosinophil Count 0.11 k/cumm (0.0-0.7); Absolute Monocyte Count 0.33 k/cumm (0.11-0.7); Absolute Neutrophil Count 1.19 k/cumm (1.2-6.7); Basophils % 0.8; Eosinophils % 4.3; HCT 34.1 % (40.0-50.0); HGB 10.9 g/dL (13.5-17.5); Lymphocytes % 35.3; Mean Corpuscular Hemoglobin 26.2 pg (27.0-33.0); Mean Platelet Volume 8.7 fL (8.0-11.0); Monocytes % 12.9; Neutrophils % 46.7; Platelet Count 134 x1000/uL (130-400); RBC 4.16 m/cumm (4.50-6.00); RBC Distribution Width 14.6 % (11.8-14.1); White Blood Cell Count 2.55 k/cumm (4.4-10.8)
[2019-02-02 07:30] LABS: Ammonia 23 umol/L (11-32)
[2019-02-02 07:39] LABS: ALT 25 U/L (16-63); AST 23 U/L (15-37); Albumin 3.4 g/dL (3.4-5.0); Alkaline Phosphatase 87 U/L (46-116); Anion Gap 9.6 mmol/L (3-11); BUN 16 mg/dL (7-18); Bilirubin, Direct 0.33 mg/dL (0.00-0.20); Bilirubin, Total 1.3 mg/dL (0.2-1.0); CO2 23.4 mmol/L (21.0-32.0); CREATININE 0.91 mg/dL (0.70-1.30); Calcium 9.1 mg/dL (8.5-10.1); Chloride 111 mmol/L (98-107); Glucose 120 mg/dL (70-100); Magnesium 1.7 mg/dL (1.8-2.4); Potassium 3.8 mmol/L (3.5-5.1); Sodium 144 mmol/L (136-145)
--- NOTE | 2019-02-02 08:00 | DI.US_ITS ---
EXAM: US ABDOMEN CLINICAL HISTORY: cirrhosis, question of ascites TECHNIQUE: Ultrasound performed using standard protocol. COMPARISON: No exams were available for comparison FINDINGS: Ultrasound examination was performed but was limited due to overlying bowel gas and the patient's keshav bility to cooperate. No gross ascites identified. Patient reportedly has hepatic cirrhosis. Liver was poorly visualized. Note is made of cholelithiasis. There is a TIPS in position with normal dire ctional portal venous flow. No biliary dilatation seen. Pancreas not well seen. Spleen grossly unr emarkable to slightly enlarged. Incidental simple small left renal cyst noted. 5 millimeter in diam eter left renal nonobstructing calculus also seen. Abdominal aorta and IVC are of normal diameter. IMPRESSION: Limited scan. Cholelithiasis is noted. No ascites. Normal directional portal venous flow through a TIPS.
[2019-02-02] MEDS: Magnesium Oxide 400 MG TAB PO (09:34)
--- NOTE | 2019-02-02 09:57 | INITIAL_ITS ---
- If Service Date Differs Date of service: 02/02/19 Time of Service: 09:57 Care Management Initial Assess REASON FOR HOSPITALIZATION:: Hepatic encephalopathy. PAST MEDICAL HISTORY/PAST SURGICAL HISTORY:: Medical History: cirrhosis, esophageal varices, hepatic encephalopathy, hepatitis C, history of GI bleed, variceal, hypertension, liver disease, and pancytopenia. Surgical History: previous back surgery, S/P hernia repair, S/P shoulder surgery, and S/P TIPS (transjugular intrahepatic portosystemic shunt). PREVIOUS FUNCTIONAL STATUS/SOCIAL/FAMILY SUPPORTS:: Alonzo lives independently in an apartment in [place]. He reports he cooks, cleans, does laundry, and likes to go fishing in his spare time. Alonzo works part-time at the [employer], volunteers at the local [employer], and is involved with AA. He does not have any family in the area but states he has lots of friends. CURRENT FUNCTIONAL STATUS:: Alonzo is sitting in a chair when meets with him. He is pleasant and easily engages in conversation. He openly talks about his struggles with alcohol and proudly shares that he has been sober for almost 6 months. ADVANCE DIRECTIVES:: None on file. Has patient been provided with information about the portal?: Yes Did the patient sign up for the portal?: Yes CODE STATUS:: DNR/DNI INSURANCE COVERAGE / FINANCIAL ISSUES:: Medicare and [employer]. CURRENT HOME/COMMUNITY SERVICES/EQUIPMENT:: None currently. PRIMARY CARE PHYSICIAN:: Katia Blanco MD, [facility] POTENTIAL DISCHARGE NEEDS:: Follow-up with PCP and discharge plan of care. PATIENT/FAMILY EDUCATION NEEDS:: Discharge plan, limitations, follow up plan, Ask Me Three. ANTICIPATED BARRIERS TO DISCHARGE:: None. TRANSPORTATION:: Alonzo is being transported home by a co-worker via private vehicle. PLAN:: Alonzo will be discharged home when medically cleared by provider. Anticipate no additional services needed at time of discharge. Either [facility] or Alonzo' co-worker will transport patient home when ready.
--- NOTE | 2019-02-02 10:59 | PHARADMIT ---
Admission Pharmacy Clinical Review HEPATIC ENCEPHALOPATHY Code Status DNR/DNI Current Weight Wgt-91.8 kg Renally Cleared and Narrow Therapeutic Index Meds CrCl~ 67 mL/min Meds-OK QTc Value / Action Taken QTc-451 (Protonix HOME) BP Control, Fever BP- 142/75 Tmax- 37.4C Electrolytes reviewed Na-144 K+3.8 Mag- 1.7 DVT Prophylaxis TEDs, SCDs Opiate Usage / Scheduled Bowel Regimen Ordered No Yes Plt/SCr for Heparin / Enoxaparin Plts-134 SCr-0.91 INR for Warfarin NA H/H stable, WBC/Bands H&H- 10.9/34.1 WBC- 2.55 Antibiotic appropriateness none Cultures and Sensitivities none Surgical ABX d/c within 24 hr NA DM control / Insulin Dosing BG-120 Heart Failure (Check EF%) (VICKEY's, B-Block, Diuretics) Clonidine IV to PO Switch No Home Meds Reviewed Yes Home Meds Not Ordered Lisinopril, Protonix Comments Ammonia-23 (was 76)
--- NOTE | 2019-02-02 11:40 | W.PM.DS.N ---
Date of service: 02/02/19 Time of Service: 11:40 DS: Diagnosis Discharge Diagnosis (1) Hepatic encephalopathy: Status: Acute (2) Hypertension: Status: Chronic (3) Cirrhosis: Status: Chronic (4) Hepatitis C: Status: Chronic Discharge Plan Disposition Patient Disposition: HOME Condition: Stable Discharge Details Chief Complaint: CVA/TIA Clinical Impression: Acute hepatic encephalopathy, Pancytopenia Reason For Visit: HEPATIC ENCEPHALOPATHY Admit Date/Time: 02/01/19 14:11 Admit Provider: Jessica Renteria Attending Provider: Jessica Renteria Primary Care Provider: Katia Blanco [facility] Hospital Course: Mr Urbina is a 63 year old male with PMHx of cirrhosis due to alcohol as well as Hepatitis C, portal hypertension, variceal bleeding s/p TIPS procedure, pancytopenia, hypertension, who was observed overnight after presenting to ED on 02/01/19 with acute on chronic hepatic encephalopathy. While there is one temperature in the computer of 38.0, evidently ED rechecked it immediately after and it was not confirmed - per ED provider, the patient did not have a fever. His exam revealed slight edema in LE's and no ascites. In fact, his ultrasound of the abdomen ruled out ascites. The suspicion for SBP was very low as a trigger for his episode of encephalopathy. Evidently, the patient did not take lactulose the day before at the doses that he was supposed to because he spent a lot of time in public and was worried about getting to the restroom and went to bed early that day. The patient was given more lactulose here, with normalization of mental status and ammonia. He is interested in any other way of preventing encephalopathy from happening. He is going to follow up with GI/hepatology as soon as possible - he will make those appointments. Addition of rifaxamin should be considered. The patient does have slight edema, and we talked about the fact that he does not know about low sodium diet. He will be given dietary instructions. I am not starting him on lasix on discharge because he is in his chronic stable state, but PCP may want to establish a plan for prn lasix with the patient. The patient does not have a prescription coverage plan in [place], was given resources for the makah of aging. He has difficulty getting to the pharmacy to cloth picker his prescriptions - PCP's office is being asked to arrange a mail-away pharmacy/delivery to home. The patient is medically stable for discharge home today. He has a follow up with PCP on 02/08. Home Meds and New Rx's Prescriptions: New lactulose 20 gram/30 mL Solution 20 g PO DIRECTED Qty: 0 RF: 0 Continued lisinopril 20 mg Tablet 20 mg PO DAILY RF: 0 pantoprazole [Protonix] 40 mg Tablet,Delayed Release (Dr/Ec) 40 mg PO BID Qty: 60 RF: 0 Discontinued lactulose 10 gram Packet 20 g PO 6X/DAY RF: 0 Discharge Instructions Instructions: Lactulose (By mouth), Hepatic Encephalopathy (DC), Low Sodium Diet (DC) Additional Instructions: Adjust the amount of lactulose you take per day to the goal of 3 liquid bowel movements per day. Follow up with your PCP as scheduled. Return to the hospital with any fever, bleeding, chest pain, or shortness of breath. Take your medications as prescribed. Good job on 6 months of sobriety!!! Stand Alone Forms: Nursing Discharge Form Referrals: Katia Blanco [Primary Care Provider] - 02/08/19 10:45 am Chantal Padilla MD [ [facility] STAFF PHYSICIAN] - (palliative care - goals of care discussion, ) Activity:: Activity as Tolerated Equipment/Supplies:: No Equipment Needed Diet:: Low Sodium Discharge Orders Discharge Orders: Discharge Order (Routine); Ordered 02/02/19 Ordered By: Jessica Renteria DS: Summary Status at Discharge Functional status at discharge: independent ambulation Overall status at discharge: patient is back to baseline Mental Status: mental status grossly normal Speech and Movement: speech and movement normal Mood: congruent mood Affect: normal affect Exam Narrative Exam Narrative: General: Very pleasant Middle-aged male, A&Ox3, fluent and appropriate with his word choice, excellent history provider, A&Ox3, very mild asterexis present today; asks excellent questions. Skin: visible skin intact HEENT: EOMI, MMM Cardiovascular: RRR, no m/r/g Lungs: CTAB Gastrointestinal: abdomen soft, obese, nontender Extremities: +1 BLE edema, no c/c. Psych Mental Status: mental status grossly normal Speech and Movement: speech and movement normal Mood: congruent mood Affect: normal affect DS: Data Vitals/I&O Vitals and I&O: Vital Signs Temperature 37.4 C 02/02/19 05:37 Temperature Source Tympanic 02/02/19 05:37 Pulse 60 02/02/19 05:37 Pulse Rhythm Regular 02/02/19 00:00 Pulse 78 02/01/19 12:40 Respiratory Rate 18 02/02/19 05:37 Respiratory Effort Non-Labored 02/02/19 00:00 Respiratory Depth Normal 02/02/19 00:00 Respiratory Pattern Normal 02/02/19 00:00 Blood Pressure 142/75 H 02/02/19 05:37 Blood Pressure Mean 133 02/01/19 12:30 Blood Pressure Position Supine 02/01/19 11:16 Pulse Oximetry 95 02/02/19 05:37 Oxygen Delivery Method Room Air 02/02/19 05:37 Oxygen Flow Rate 0 02/02/19 05:37 Pain Level 0 02/02/19 05:37 Comment 02/02/19 05:37 Intake & Output 02/01/19 02/01/19 02/02/19 11:59 23:59 11:59 Intake Total 1000 / 1000 Output Total 675 / 675 Balance 325 / 325 Weight 98.883 kg 98.883 kg 91.8 kg Intake: IV 1000 / 1000 Output: Urine 675 / 675 Other: Urine Color Light Treva Urine Appearance Clear Urine Odor None Comment pt voiding independently Stool Size Large Small Stool Characteristics Formed Soft Brown Voiding Methods Urinal Data Completed and Pending Completed studies during hospitalization [Text1]: CT head: No evidence of acute intracranial process. CXR: No evidence of acute process. US abdomen: Limited scan. Cholelithiasis is noted. No ascites. Normal directional portal venous flow through a TIPS. Labs on day of discharge: Labs from last 24 hours 02/02/19 02/02/19 02/02/19 07:10 07:10 07:10 WBC 2.55 L RBC 4.16 L Hgb 10.9 L Hct 34.1 L MCV 82.0 MCH 26.2 L MCHC 32.0 RDW 14.6 H Plt Count 134 MPV 8.7 Immature Gran % 0.0 Neutrophils % 46.7 Lymphocytes % 35.3 Monocytes % 12.9 Eosinophils % 4.3 Basophils % 0.8 Absolute Neutrophils 1.19 L Absolute Lymphocytes 0.90 L Absolute Monocytes 0.33 Absolute Eosinophils 0.11 Absolute Basophils 0.02 PT INR Sodium 144 Potassium 3.8 Chloride 111 H Carbon Dioxide 23.4 Anion Gap 9.6 BUN 16 Creatinine 0.91 Estimated GFR/1.73 m2 >= 60.00 Glucose 120 H Calcium 9.1 Magnesium 1.7 L Total Bilirubin 1.3 H Conjugated Bilirubin 0.33 H AST 23 ALT 25 Alkaline Phosphatase 87 Ammonia 23 Troponin I Total Protein 7.0 Albumin 3.4 Urine Color Urine Clarity Urine pH Ur Specific [place] Urine Protein Urine Ketones Urine Blood Urine Nitrite Urine Bilirubin Urine Urobilinogen Ur Leukocyte Esterase Urine RBC Urine WBC Ur Epithelial Cells Urine Crystals Urine Bacteria Urine Casts Urine Mucus Ur Culture Indicated? Urine Glucose Urine Opiates Screen Urine Methadone Screen Ur Barbiturates Screen Ur Tricyclics Screen Ur Amphetamines Screen U Benzodiazepines Scrn Urine Cocaine Screen Ur THC Screen Ethyl Alcohol 02/02/19 02/01/19 02/01/19 05:35 12:15 12:15 WBC RBC Hgb Hct MCV MCH MCHC RDW Plt Count MPV Immature Gran % Neutrophils % Lymphocytes % Monocytes % Eosinophils % Basophils % Absolute Neutrophils Absolute Lymphocytes Absolute Monocytes Absolute Eosinophils Absolute Basophils PT Pending INR Pending Sodium Potassium Chloride Carbon Dioxide Anion Gap BUN Creatinine Estimated GFR/1.73 m2 Glucose Calcium Magnesium Total Bilirubin Conjugated Bilirubin AST ALT Alkaline Phosphatase Ammonia Troponin I Total Protein Albumin Urine Color Yellow Urine Clarity Clear Urine pH 6.5 Ur Specific [place] 1.020 Urine Protein 30 H Urine Ketones Negative Urine Blood Negative Urine Nitrite Negative Urine Bilirubin Negative Urine Urobilinogen 0.2 Ur Leukocyte Esterase Negative Urine RBC 0-2 Urine WBC 0-2 Ur Epithelial Cells Rare Urine Crystals Negative Urine Bacteria Few Urine Casts Negative Urine Mucus Moderate Ur Culture Indicated? No Urine Glucose Negative Urine Opiates Screen Negative Urine Methadone Screen Negative Ur Barbiturates Screen Negative Ur Tricyclics Screen Negative Ur Amphetamines Screen Negative U Benzodiazepines Scrn Negative Urine Cocaine Screen Negative Ur THC Screen Negative Ethyl Alcohol 02/01/19 02/01/19 02/01/19 11:45 11:45 11:45 WBC 2.14 L RBC 4.37 L Hgb 11.4 L Hct 35.8 L MCV 81.9 MCH 26.1 L MCHC 31.8 L RDW 14.6 H Plt Count 124 L MPV 8.5 Immature Gran % 0.0 Neutrophils % 62.1 Lymphocytes % 22.0 Monocytes % 10.3 Eosinophils % 4.7 Basophils % 0.9 Absolute Neutrophils 1.33 Absolute Lymphocytes 0.47 L Absolute Monocytes 0.22 Absolute Eosinophils 0.10 Absolute Basophils 0.02 PT INR Sodium Potassium Chloride Carbon Dioxide Anion Gap BUN Creatinine Estimated GFR/1.73 m2 Glucose Calcium Magnesium Total Bilirubin Conjugated Bilirubin AST ALT Alkaline Phosphatase Ammonia 76 H Troponin I Total Protein Albumin Urine Color Urine Clarity Urine pH Ur Specific [place] Urine Protein Urine Ketones Urine Blood Urine Nitrite Urine Bilirubin Urine Urobilinogen Ur Leukocyte Esterase Urine RBC Urine WBC Ur Epithelial Cells Urine Crystals Urine Bacteria Urine Casts Urine Mucus Ur Culture Indicated? Urine Glucose Urine Opiates Screen Urine Methadone Screen Ur Barbiturates Screen Ur Tricyclics Screen Ur Amphetamines Screen U Benzodiazepines Scrn Urine Cocaine Screen Ur THC Screen Ethyl Alcohol < 3.0 02/01/19 11:45 WBC RBC Hgb Hct MCV MCH MCHC RDW Plt Count MPV Immature Gran % Neutrophils % Lymphocytes % Monocytes % Eosinophils % Basophils % Absolute Neutrophils Absolute Lymphocytes Absolute Monocytes Absolute Eosinophils Absolute Basophils PT INR Sodium 146 H Potassium 3.8 Chloride 111 H Carbon Dioxide 24.6 Anion Gap 10.4 BUN 19 H Creatinine 1.00 Estimated GFR/1.73 m2 >= 60.00 Glucose 159 H Calcium 9.1 Magnesium 1.8 Total Bilirubin 1.2 H Conjugated Bilirubin AST 25 ALT 25 Alkaline Phosphatase 91 Ammonia Troponin I < 0.05 Total Protein 7.3 Albumin 3.7 Urine Color Urine Clarity Urine pH Ur Specific [place] Urine Protein Urine Ketones Urine Blood Urine Nitrite Urine Bilirubin Urine Urobilinogen Ur Leukocyte Esterase Urine RBC Urine WBC Ur Epithelial Cells Urine Crystals Urine Bacteria Urine Casts Urine Mucus Ur Culture Indicated? Urine Glucose Urine Opiates Screen Urine Methadone Screen Ur Barbiturates Screen Ur Tricyclics Screen Ur Amphetamines Screen U Benzodiazepines Scrn Urine Cocaine Screen Ur THC Screen Ethyl Alcohol [facility] Medical History (Updated 02/01/19 @ 18:30 by Jessica Renteria MD) Cirrhosis (Chronic) Esophageal varices (Chronic) Hepatic encephalopathy (Acute) Hepatitis C (Chronic) History of GI bleed (Inactive) variceal Hypertension (Chronic) Liver disease, chronic (Chronic) Pancytopenia (Acute) Surgical History (Updated 02/01/19 @ 18:17 by Jessica Renteria MD) Previous back surgery (Inactive) S/P hernia repair (Inactive) S/P shoulder surgery (Inactive) 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) Family History (Updated 02/01/19 @ 18:19 by Jessica Renteria MD) Mother Breast cancer Sister Breast cancer Heart disease Diabetes Sister Breast cancer Hypertension Brother Cancer leukemia Brother Heart disease Diabetes Hypertension Maternal Grandmother Heart disease Father Diabetes Hypertension Social History (Updated 02/01/19 @ 18:20 by Jessica Renteria MD) Smoking/Tobacco Use Status: Never Alcohol Intake: former Year quit: 2019 Substance use type: does not use and former substance user Do you feel safe at home: No (He is worried about doing something to himself) Do you feel safe in your relationship?: Yes
[2019-02-02 11:56] VITALS: BP 145/80; PULSE 70; RESP 18; TEMP 36.7; O2SAT 98
--- NOTE | 2019-02-02 12:32 | PDOC.CMDIS ---
- If Service Date Differs Date of service: 02/02/19 Time of Service: 12:32 LACE Index Scoring Tool - Questions: Length of Stay (in days): 1 Acuity (Admit via E.D.?): Yes Comorbidities: Liver or Renal Disease E.D. Visits: 3 - Answers: Total Score: 12 Risk of Readmission: High Risk Care Management Discharge Reason for Hospitalization: Hepatic encephalopathy. Discharge Plan: Alonzo is being discharged home. He will follow up with his PCP as directed. A Palliative Care consult has been ordered on an outpatient basis. Patient/Family Education Needs: Nursing will review discharge instructions with Alonzo re medications, follow-up appointments, activity level, and how to manage care at home.
== END 2019-02-02 12:55 | disposition home or self-care (01) ==
LOC: ER 14:14 → MS 16:31
PROVIDERS: Admitting Provider Internal Medicine; Emergency Provider Nurse Practitioner Family; PCP Nurse Practitioner Family; Visit Provider Internal Medicine
DX: K71.10 Toxic liver disease with hepatic necrosis, without coma (principal); T47.3X6A Underdosing of saline and osmotic laxatives, initial encounter; Z91.128 Patient's intentional underdosing of medication regimen for other reason; D61.818 Other pancytopenia; I85.10 Secondary esophageal varices without bleeding; K71.7 Toxic liver disease with fibrosis and cirrhosis of liver; B19.20 Unspecified viral hepatitis C without hepatic coma; I10 Essential (primary) hypertension; K76.6 Portal hypertension; R60.0 Localized edema
CPT/HCPCS: 36415; 36416; 80048; 80053; 80076; 80307; 82962; 93005; 96360; 96361; 99217; 99220; 99285; 70450; 71046; 76700; 80320; 81003; 81015; 82140; 83735; 84484; 85025; 85610; 93010; G0378

== ENCOUNTER 2019-09-14 03:02 | Outpatient (CLI) | payer MEDICARE, SELFPAY ==
[2019-09-14 11:41] LABS: HCT 36.2 % (40.0-50.0); HGB 12.2 g/dL (13.5-17.5); Mean Corp. HGB Concentration 33.7 g/dL (32.0-36.0); Mean Corpuscular Hemoglobin 28.4 pg (27.0-33.0); Mean Corpuscular Volume 84.4 fL (80-95); Mean Platelet Volume 8.3 fL (8.0-11.0); Platelet Count 133 x1000/uL (130-400); RBC 4.29 m/cumm (4.50-6.00); RBC Distribution Width 15.7 % (11.8-14.1); White Blood Cell Count 2.51 k/cumm (4.4-10.8)
[2019-09-14 11:55] LABS: INR 1.1 (0.9-1.1); Prothrombin Time 10.6 sec (9.3-11.0)
[2019-09-14 11:57] LABS: Ammonia 56 umol/L (11-32)
[2019-09-14 12:55] LABS: ALT 43 U/L (16-63); AST 30 U/L (15-37); Albumin 3.5 g/dL (3.4-5.0); Alkaline Phosphatase 83 U/L (46-116); BUN 11 mg/dL (7-18); Bilirubin, Total 0.6 mg/dL (0.2-1.0); CREATININE 0.92 mg/dL (0.70-1.30); Calcium 9.1 mg/dL (8.5-10.1); Chloride 107 mmol/L (98-107); Glucose 364 mg/dL (74-106); Potassium 4.1 mmol/L (3.5-5.1); Sodium 139 mmol/L (136-145); Total Protein 6.9 g/dL (6.4-8.2)
[2019-09-17 15:36] LABS: Zinc, Serum 0.58 mcg/mL (0.66-1.10)
== END 2019-09-14 03:22 ==
PROVIDERS: PCP Nurse Practitioner Family; Visit Provider Physician Assistant
DX: I10 Essential (primary) hypertension (principal); K72.91 Hepatic failure, unspecified with coma; F10.11 Alcohol abuse, in remission
CPT/HCPCS: 36415; 80053; 85027; 82105; 82140; 84630; 85610

== ENCOUNTER 2019-09-19 10:42 | Outpatient (REF) | payer MEDICARE, SELFPAY | END 2019-09-19 11:02 | LOC: NCHCN 10:42 | PROVIDERS: PCP Nurse Practitioner Family; Visit Provider Physician Assistant | DX: R73.09 Other abnormal glucose (principal) | CPT/HCPCS: 83036 ==

== ENCOUNTER 2019-11-02 12:14 | Observation (INO) | payer MEDICARE, SELFPAY ==
[2019-11-02] VITALS (7 sets, daily range): BP systolic 96–138; BP diastolic 50–64; PULSE 63–97; RESP 18–24; TEMP 36.5–37.2; O2SAT 93–96
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
[2019-11-02] MEDS: HYDROmorphone 2 MG/ML VIAL 1 MG IVP ×2 (12:30→19:12)
[2019-11-02] MEDS: Normal Saline 1,000 ML 1000 ML IV (12:31)
[2019-11-02 13:01] LABS: Abs Immature Grans 0.02 k/cumm (0.0-0.09); Absolute Basophil Count 0.02 k/cumm (0.0-0.2); Absolute Eosinophil Count 0.06 k/cumm (0.0-0.7); Absolute Lymphocyte Count 0.89 k/cumm (1.2-3.4); Absolute Neutrophil Count 3.58 k/cumm (1.2-6.7); Basophils % 0.4; Eosinophils % 1.2; HCT 37.6 % (40.0-50.0); HGB 12.4 g/dL (13.5-17.5); Immature Grans % 0.4 %; Lymphocytes % 17.9; Mean Corpuscular Volume 88.1 fL (80-95); Mean Platelet Volume 8.9 fL (8.0-11.0); Neutrophils % 72.1; Platelet Count 146 x1000/uL (130-400); RBC 4.27 m/cumm (4.50-6.00); White Blood Cell Count 4.97 k/cumm (4.4-10.8)
[2019-11-02 13:17] LABS: ALT 32 U/L (16-63); AST 36 U/L (15-37); Albumin 3.5 g/dL (3.4-5.0); Alkaline Phosphatase 79 U/L (46-116); Anion Gap 12.7 mmol/L (3-11); BUN 18 mg/dL (7-18); CO2 23.3 mmol/L (21.0-32.0); CREATININE 0.95 mg/dL (0.70-1.30); Calcium 9.1 mg/dL (8.5-10.1); Chloride 107 mmol/L (98-107); Glucose 130 mg/dL (74-106); Magnesium 1.8 mg/dL (1.8-2.4); Potassium 3.8 mmol/L (3.5-5.1); Sodium 143 mmol/L (136-145); Total Protein 6.8 g/dL (6.4-8.2)
[2019-11-02] MEDS: Normal Saline Flush 10 ML SYR IVP ×2 (13:47→18:39)
[2019-11-02] MEDS: Normal Saline - Diluent 50 ML VIAL IV (13:47)
[2019-11-02] MEDS: Omnipaque 350 MG/ML 100 ML BTL IJ (13:47)
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
[2019-11-02 13:54] LABS: INR 1.2 (0.9-1.1); PTT Activated 22.2 sec (21.0-31.4); Prothrombin Time 12.1 sec (9.3-11.0)
--- NOTE | 2019-11-02 14:30 | DI.RAD_ITS ---
EXAM: XR CLAVICLE LT CLINICAL HISTORY: dedicated films. Pain after trauma TECHNIQUE: 2D digital imaging was performed. COMPARISON: No exams were available for comparison FINDINGS: BONES: There is an oblique fracture through the midshaft of the left clavicle. Overriding of the fra cture is noted with the medial fracture component superiorly located relative to the lateral componen t. No bony destructive lesion is seen. JOINTS: No dislocation present. SOFT TISSUE: Normal. IMPRESSION: Displaced mid left clavicular fracture. DATA REPOSITORY: RADIATION DOSE DELIVERED:
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
[2019-11-02] MEDS: oxyCODONE 5 MG TAB PO (18:00)
[2019-11-02] MEDS: Ketorolac 15 MG/ML VIAL IVP (18:40)
[2019-11-02] MEDS: Pantoprazole 40 MG TABCR PO (19:12)
[2019-11-02] MEDS: Rifaximin 550 MG TAB PO (19:13)
[2019-11-02] MEDS: Acetaminophen 325 MG TAB 650 MG PO (21:14)
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
[2019-11-03] MEDS: Ketorolac 15 MG/ML VIAL IVP ×3 (00:14→11:26)
[2019-11-03] MEDS: HYDROmorphone 2 MG/ML VIAL 1 MG IVP ×3 (00:14→11:47)
[2019-11-03] MEDS: Normal Saline Flush 10 ML SYR IVP ×6 (00:15→11:49)
[2019-11-03 01:02] VITALS: BP 102/60
[2019-11-03] MEDS: Acetaminophen 325 MG TAB 650 MG PO (02:59)
[2019-11-03] MEDS: oxyCODONE 5 MG TAB PO ×2 (02:59→10:26)
[2019-11-03 07:56] VITALS: BP 102/60; PULSE 64; RESP 20; TEMP 36.5; O2SAT 94
--- NOTE | 2019-11-03 08:00 | DI.RAD_ITS ---
EXAM: XR CHEST 2V PA LATERAL CLINICAL HISTORY: follow up pneumothorax TECHNIQUE: 2D digital imaging was performed. COMPARISON: CR XR CHEST 2V PA LATERAL from 02/01/2019 FINDINGS: MEDIASTINUM: Normal. HEART: Normal. PULMONARY VASCULATURE: Normal. LUNGS: There is an infiltrate in the left lower lobe. PLEURAL SPACE: There is a small left pleural effusion. There is a small left apical pneumothorax. BONE:Multiple left rib fractures are seen. There is a left clavicular fracture. OTHER FINDINGS:Findings of a TIPS are seen in the abdomen IMPRESSION: 1. Small left apical pneumothorax. 2. Small left pleural effusion and left basilar infiltrate which may represent atelectasis, pneumonia or contusion. 3. Left clavicular and left rib fractures. DATA REPOSITORY: RADIATION DOSE DELIVERED:
--- NOTE | 2019-11-03 08:05 | W.PM.PROGNOT ---
Date of Service Date of service: 11/03/19 Time of Service: 08:34 Assessment and Plan Assessment and plan (1) Pneumothorax: Status: Acute Assessment and plan: No PTX on CXR today Qualifiers: Pneumothorax type: traumatic Encounter type: initial encounter Qualified Code(s): S27.0XXA - Traumatic pneumothorax, initial encounter (2) Fracture of rib of left side: Status: Acute Assessment and plan: A\\ Displaced rib fractures. Complains of pain P\\ D/C Home on Flexeril and Oxycodon 5 mg every 4 hours x 7 days Follow up with PCP as outpatient Qualifiers: Encounter type: initial encounter Rib fracture type: multiple ribs Fracture type: closed Qualified Code(s): S22.42XA - Multiple fractures of ribs, left side, initial encounter for closed fracture (3) Fracture of left clavicle: Status: Acute Assessment and plan: A\\ Sling for comfort P\\ Follow up with Dr. Aviles as outpatient Qualifiers: Encounter type: initial encounter Clavicle location: unspecified part of clavicle Fracture type: closed Fracture alignment: nondisplaced Qualified Code(s): S42.002A - Fracture of unspecified part of left clavicle, initial encounter for closed fracture Subjective Subjective Interval history since last seen: Mr. Urbina is doing OK. He is complaining of pain. He has been getting IV dialuded and Oxycodon. The oxycodon is only 5 mg q 6 hours at this time. He is eating without N/V. Exam Const General: cooperative and no acute distress Orientation: alert and oriented x3 HENMT Head: normocephalic and atraumatic Resp Effort & Inspection: normal respiratory effort Auscultation: clear to auscultation bilaterally Cardio Rate: regular rate Rhythm: regular rhythm GI Inspection: normal to inspection Palpation: soft and nontender Auscultation: normal bowel sounds Objective Objective Clinical Data: Abnormal lab results 11/02/19 11/02/19 11/02/19 Range/Units 12:40 12:40 12:40 RBC 4.27 L (4.50-6.00) m/cumm Hgb 12.4 L (13.5-17.5) g/dL Hct 37.6 L (40.0-50.0) % RDW 15.0 H (11.8-14.1) % Absolute Lymphocytes 0.89 L (1.2-3.4) k/cumm PT 12.1 H (9.3-11.0) sec INR 1.2 H (0.9-1.1) Anion Gap 12.7 H (3-11) mmol/L Glucose 130 H (74-106) mg/dL Vital Signs Temperature 97.7 F 11/03/19 07:56 Temperature Source Tympanic 11/03/19 07:56 Pulse 64 11/03/19 07:56 Pulse Rhythm Regular 11/02/19 20:00 Respiratory Rate 20 11/03/19 07:56 Respiratory Effort 11/02/19 20:00 Respiratory Depth Shallow 11/02/19 20:00 Respiratory Pattern Normal 11/02/19 20:00 Blood Pressure 102/60 11/03/19 07:56 Blood Pressure Position Supine 11/02/19 12:13 Pulse Oximetry 94 L 11/03/19 07:56 Oxygen Delivery Method Nasal Cannula 11/03/19 07:56 Oxygen Flow Rate 2 11/03/19 07:56 Pain Level 7 11/03/19 07:56 Comment 11/03/19 01:02 Intake & Output 11/02/19 11/02/19 11/03/19 11:59 23:59 11:59 Intake Total 1240 / 1240 Output Total 400 / 400 250 / 250 Balance 840 / 840 -250 / -250 Weight 212 lb 4.882 oz Intake: IV 1000 / 1000 Oral 240 / 240 Output: Urine 400 / 400 250 / 250 Other: Urine Color Yellow Light Treva Urine Appearance Clear Clear Voiding Methods Urinal Urinal Laboratory Results WBC 4.97 k/cumm (4.4-10.8) 11/02/19 12:40 RBC 4.27 m/cumm (4.50-6.00) L 11/02/19 12:40 Hgb 12.4 g/dL (13.5-17.5) L 11/02/19 12:40 Hct 37.6 % (40.0-50.0) L 11/02/19 12:40 MCV 88.1 fL (80-95) 11/02/19 12:40 MCH 29.0 pg (27.0-33.0) 11/02/19 12:40 MCHC 33.0 g/dL (32.0-36.0) 11/02/19 12:40 RDW 15.0 % (11.8-14.1) H 11/02/19 12:40 Plt Count 146 x1000/uL (130-400) 11/02/19 12:40 MPV 8.9 fL (8.0-11.0) 11/02/19 12:40 Immature Gran % 0.4 % 11/02/19 12:40 Neutrophils % 72.1 11/02/19 12:40 Lymphocytes % 17.9 11/02/19 12:40 Monocytes % 8.0 11/02/19 12:40 Eosinophils % 1.2 11/02/19 12:40 Basophils % 0.4 11/02/19 12:40 Absolute Neutrophils 3.58 k/cumm (1.2-6.7) 11/02/19 12:40 Absolute Lymphocytes 0.89 k/cumm (1.2-3.4) L 11/02/19 12:40 Absolute Monocytes 0.40 k/cumm (0.11-0.7) 11/02/19 12:40 Absolute Eosinophils 0.06 k/cumm (0.0-0.7) 11/02/19 12:40 Absolute Basophils 0.02 k/cumm (0.0-0.2) 11/02/19 12:40 PT 12.1 sec (9.3-11.0) H 11/02/19 12:40 INR 1.2 (0.9-1.1) H 11/02/19 12:40 APTT 22.2 sec (21.0-31.4) 11/02/19 12:40 Sodium 143 mmol/L (136-145) 11/02/19 12:40 Potassium 3.8 mmol/L (3.5-5.1) 11/02/19 12:40 Chloride 107 mmol/L (98-107) 11/02/19 12:40 Carbon Dioxide 23.3 mmol/L (21.0-32.0) 11/02/19 12:40 Anion Gap 12.7 mmol/L (3-11) H 11/02/19 12:40 BUN 18 mg/dL (7-18) 11/02/19 12:40 Creatinine 0.95 mg/dL (0.70-1.30) 11/02/19 12:40 Estimated GFR/1.73 m2 >= 60.00 (mL/min/1.73m2) 11/02/19 12:40 Glucose 130 mg/dL (74-106) H 11/02/19 12:40 Calcium 9.1 mg/dL (8.5-10.1) 11/02/19 12:40 Magnesium 1.8 mg/dL (1.8-2.4) 11/02/19 12:40 Total Bilirubin 1.0 mg/dL (0.2-1.0) 11/02/19 12:40 AST 36 U/L (15-37) 11/02/19 12:40 ALT 32 U/L (16-63) 11/02/19 12:40 Alkaline Phosphatase 79 U/L (46-116) 11/02/19 12:40 Total Protein 6.8 g/dL (6.4-8.2) 11/02/19 12:40 Albumin 3.5 g/dL (3.4-5.0) 11/02/19 12:40
--- NOTE | 2019-11-03 08:23 | DI.VRAD_ITS ---
PROCEDURE INFORMATION: Exam: XR Chest, 2 Views Exam date and time: 11/03/2019 8:08 AM Age: 64 years old Clinical indication: Other: Follow up pneumothorax TECHNIQUE: Imaging protocol: XR of the chest Views: 2 views. COMPARISON: CT CHEST/ABD/PEL W 11/02/2019 1:27 PM FINDINGS: Lungs: Opacity in the left base may represent atelectasis/pneumonia versus contusion. Pleural space: Pneumothorax is not demonstrated on the x-ray. There may be mild left pleural effusion. Heart/Mediastinum: Cardiomegaly Bones/joints: Multiple displaced left rib fractures. Intraperitoneal space: TIPS Shunt demonstrated in the right upper quadrant IMPRESSION: 1. Multiple displaced left rib fractures. 2. Pneumothorax is not demonstrated on the x-ray. 3. Opacity in the left base may represent atelectasis/pneumonia versus contusion. 4. There may be mild left pleural effusion. Dictated and Authenticated by: Maxwell Beckman MD. Ordering:DARIN Britton MD
[2019-11-03] MEDS: Pantoprazole 40 MG TABCR PO (08:35)
[2019-11-03] MEDS: Lactulose 20 GM/30 ML CUP PO (08:35)
[2019-11-03] MEDS: Rifaximin 550 MG TAB PO (08:36)
[2019-11-03] MEDS: Lisinopril 20 MG TAB PO (08:36)
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
--- NOTE | 2019-11-03 08:55 | PDOC.CMIN ---
- If Service Date Differs Date of service: 11/03/19 Time of Service: 08:55 Care Management Initial Assess REASON FOR HOSPITALIZATION:: Rib fractures and traumatic pneumothorax. PAST MEDICAL HISTORY/PAST SURGICAL HISTORY:: Medical History: Cirrhosis (Chronic), Esophageal varices (Chronic), Hepatic encephalopathy (Acute), Hepatitis C (Chronic), History of GI bleed (Inactive) - variceal, Hypertension (Chronic), Liver disease, chronic (Chronic), and Pancytopenia (Acute). 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 PREVIOUS FUNCTIONAL STATUS/SOCIAL/FAMILY SUPPORTS:: Alonzo lives alone in an apartment in [facility]. He does not drive but is independent with his ADLs at baseline. He shares his support system consists of lots of friends in the community. Alonzo works part-time for the [employer] in [facility]. CURRENT FUNCTIONAL STATUS:: Alonzo is sitting on the side of his bed when CM comes to meet with him. He is pleasant and easily engages in conversation. 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 CM will continue to follow. ADVANCE DIRECTIVES:: None on file but an Advance Directive is provided to Alonzo for him to take home and complete at his request. Has patient been provided with info about the portal/API?: Yes Did the patient sign up for the portal?: Yes (Previously enrolled.) CODE STATUS:: DNR/DNI INSURANCE COVERAGE / FINANCIAL ISSUES:: Medicare and [employer]. CURRENT HOME/COMMUNITY SERVICES/EQUIPMENT:: Denies home or community services and equipment. Alonzo is independent at baseline. PRIMARY CARE PHYSICIAN:: IMANI Alaniz POTENTIAL DISCHARGE NEEDS:: Follow-up appointments with PCP, Dr. Jones, and discharge plan of care. PATIENT/FAMILY EDUCATION NEEDS:: Discharge instructions, limitations, follow up plan, including Ask Me Three, medications, and self-management. ANTICIPATED BARRIERS TO DISCHARGE:: No anticipated barriers. TRANSPORTATION:: Via private vehicle with a friend. PLAN:: Alonzo will be discharged home with no services when medically cleared by provider. A friend will transport him home when ready. CM will continue to follow.
--- NOTE | 2019-11-03 09:20 | PDOC.CMDIS ---
- If Service Date Differs Date of service: 11/03/19 Time of Service: 09:21 LACE Index Scoring Tool - Questions: Length of Stay (in days): 1 Acuity (Admit via E.D.?): Yes Comorbidities: Liver or Renal Disease E.D. Visits: 2 - Answers: Total Score: 11 Risk of Readmission: High Risk Care Management Discharge Reason for Hospitalization: Rib fractures and traumatic pneumothorax. Discharge Plan: Alonzo is being discharged home with no new services. He will follow up with his PCP, Dr. Jones, and plan of care as directed. He is being driven home by private vehicle with a friend. Patient/Family Education Needs: Nursing will review discharge instructions with Alonzo re medications, follow-up appointments, activity level, and how to manage care at home.
[2019-11-03 11:32] LABS: COVID-19 RT-PCR UVMMC Result Negative (Negative)
== END 2019-11-03 12:15 | disposition home or self-care (01) ==
LOC: ER 16:10 → MS 16:14
PROVIDERS: Admitting Provider Surgery; Emergency Provider Emergency Medicine; PCP Nurse Practitioner Family; Visit Provider Surgery
DX: S22.42XA Multiple fractures of ribs, left side, initial encounter for closed fracture (principal); S27.0XXA Traumatic pneumothorax, initial encounter; S42.022A Displaced fracture of shaft of left clavicle, initial encounter for closed fracture; V29.9XXA Motorcycle rider (driver) (passenger) injured in unspecified traffic accident, initial encounter; D61.818 Other pancytopenia; I10 Essential (primary) hypertension; K73.9 Chronic hepatitis, unspecified; K74.60 Unspecified cirrhosis of liver; I85.10 Secondary esophageal varices without bleeding; F10.11 Alcohol abuse, in remission
CPT/HCPCS: 64420; 76942; 23500; 36415; 64450; 74177; 80053; 96361; 96374; 99214; 99217; 99220; 99223; 99232; 99239; 99253; 99285; U0003; 70450; 71046; 71260; 72125; 73000; 73030; 83735; 85025; 85610; 85730; G0378; J1885; J3490

== ENCOUNTER 2019-11-04 09:52 | Inpatient (IN) | payer MEDICARE, SELFPAY ==
[2019-11-04] VITALS (113 sets, daily range): BP systolic 56–123; BP diastolic 33–99; PULSE 72–123; RESP 9–28; TEMP 36.2–36.6; O2SAT 84–100
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
[2019-11-04] MEDS: Lidocaine 5% Patch 1 PATCH TP (10:11)
[2019-11-04] MEDS: Normal Saline 1,000 ML 1000 ML IV ×2 (10:20→16:01)
[2019-11-04] MEDS: Normal Saline Flush 10 ML SYR IVP (10:20)
[2019-11-04 10:30] LABS: HCT 35.9 % (40.0-50.0); HGB 12.1 g/dL (13.5-17.5); Mean Corp. HGB Concentration 33.7 g/dL (32.0-36.0); Mean Corpuscular Hemoglobin 29.7 pg (27.0-33.0); Mean Corpuscular Volume 88.2 fL (80-95); Mean Platelet Volume 8.5 fL (8.0-11.0); Platelet Count 162 x1000/uL (130-400); RBC 4.07 m/cumm (4.50-6.00); RBC Distribution Width 14.8 % (11.8-14.1); White Blood Cell Count 9.51 k/cumm (4.4-10.8)
[2019-11-04 10:50] LABS: ALT 37 U/L (16-63); AST 53 U/L (15-37); Albumin 3.6 g/dL (3.4-5.0); Alkaline Phosphatase 82 U/L (46-116); Anion Gap 8.6 mmol/L (3-11); BUN 44 mg/dL (7-18); CO2 24.4 mmol/L (21.0-32.0); CREATININE 2.48 mg/dL (0.70-1.30); Calcium 9.7 mg/dL (8.5-10.1); Chloride 99 mmol/L (98-107); Estimated GFR 26.21 (mL/min/1.73m2); Glucose 128 mg/dL (74-106); Potassium 4.7 mmol/L (3.5-5.1); Sodium 132 mmol/L (136-145); Total Protein 7.3 g/dL (6.4-8.2)
--- NOTE | 2019-11-04 11:08 | DI.CT_ITS ---
EXAM: CT CHEST WO CLINICAL HISTORY: Hx Pneumothorax, SOB TECHNIQUE: Imaging Protocol: Axial computed tomography images with coronal and sagittal reformatted images were created and reviewed CONTRAST MATERIAL: Intravenous: Omnipaque 350 Contrast volume:structured data in ml. COMPARISON: CT CT CHEST/ABD/PEL W from 11/02/2019 FINDINGS: Exam is limited by patient motion. Mediastinum and Joelle: No dominant adenopathy or fluid collection. Pulmonary parenchyma: Collapse of the left lung related to large left pneumothorax. Respiratory aminata on is seen in the right lung. Pleura: There has been interval increase in size the left pneumothorax, now large.. There has also b een an interval increase in size of the right pleural effusion. Heart: The heart is not dilated. Aorta: Thoracic aorta non-dilated. Upper abdomen: Limited evaluation due to motion. Tips. Left renal calculi. Lymph nodes: Within normal limits. Bones: Displaced left clavicle fracture. Fractures of the left 4th through 8th ribs are again noted. Scoliosis and degenerative changes. Soft tissues: Unremarkable. IMPRESSION: Significant interval increase in size of left pneumothorax, now with nearly complete collapse. Inter freeman increase in size of left pleural effusion. RADIATION DOSE DELIVERED: Total DLP DATA REPOSITORY: All CT scans at this facility are submitted to the National Radiology Data Registry (NRDR) Dose Index Registry (DIR) with the [employer] (ACR). RADIATION OPTIMIZATION: All CT scans at this facility use at least one of these dose optimization te chniques: automated exposure control; mA and/or kV adjustment per patient size (includes targeted exa ms where dose is matched to clinical indication); or iterative reconstruction.
[2019-11-04] MEDS: HYDROmorphone 2 MG/ML VIAL 1 MG IVP (11:15)
[2019-11-04] MEDS: Normal Saline 250 ML IV (11:20)
--- NOTE | 2019-11-04 11:33 | DI.VRAD_ITS ---
Addendum created by Markos Chang DO on 11/04/2019 12:33:52 PM EDT Addendum: Acute appearing left-sided mid clavicular fracture, at least moderately displaced, with evidence of bony overlap of the fractured fragments. Slight bony irregularity and widening of the right acromioclavicular joint which may be degenerative. Addendum created by Markos Chang DO on 11/04/2019 11:37:43 AM EDT Findings of significantly increased left-sided pneumothorax were discussed with Meryl Vazquez nurse-practitioner by Dr. Chang at approximately 10:37 a.m. on 11/04/2019 by phone. Central standard time. Initial report created on 11/04/2019 11:32:50 AM EDT PROCEDURE INFORMATION: Exam: CT Chest Without Contrast Exam date and time: 11/04/2019 10:52 AM Age: 64 years old Clinical indication: Other: HX pneumothorax, SOB TECHNIQUE: Imaging protocol: Computed tomography of the chest without contrast. Radiation optimization: All CT scans at this facility use at least one of these dose optimization techniques: automated exposure control; mA and/or kV adjustment per patient size (includes targeted exams where dose is matched to clinical indication); or iterative reconstruction. COMPARISON: CT CHEST/ABD/PEL W 11/02/2019 1:27 PM FINDINGS: Thyroid: Unremarkable thyroid. Lungs: Limited evaluation of the lung parenchyma secondary to motion. The right lung is grossly clear with suspected dependent atelectasis. Pleural space: Left-sided pneumothorax has significantly increased in size. Small left-sided pleural effusion. Heart: Heart appears normal in size however there is partially obscured due to artifact and motion. Aorta: Obscured due to motion. Grossly normal. Lymph nodes: No suspicious lymphadenopathy. Kidneys and ureters: Nonobstructing left renal calculi. Incompletely visualized left renal cystic lesion the visualized portions of which suggests a benign nature. Stomach and bowel: Nonobstructed visualized bowel. Bones/joints: Multiple acute appearing left-sided rib fractures are redemonstrated. Suspected fracture of the right posterior 10th rib of indeterminate age. Scoliotic changes of the spine. Soft tissues: Prominent soft tissue edema along the left chest wall. Redemonstrated subcutaneous emphysema along the chest wall. Scattered bony degenerative changes are present. Other findings: Tips is noted. Presumed vascular coils are seen within the middle abdomen. IMPRESSION: 1. Significant interval increase in size of left-sided pneumothorax. 2. Small left-sided pleural effusion. 3. Other miscellaneous findings as detailed. Dictated and Authenticated by: Markos Chang MD. Ordering:REA Sheth MD
--- NOTE | 2019-11-04 12:01 | DI.RAD_ITS ---
EXAM: XR PORTABLE CHEST AP POST LINE CLINICAL HISTORY: Post chest tube plcment TECHNIQUE: 2D digital imaging was performed. COMPARISON: CR,XR XR CHEST 2V PA LATERAL from 11/03/2019 FINDINGS: A chest tube has been placed near the left lung apex. There is a tiny residual apical pneumothorax. There is stable left basilar densities. The right lung remains clear. IMPRESSION: Tiny residual left apical pneumothorax status post chest tube placement. DATA REPOSITORY: RADIATION DOSE DELIVERED:
--- NOTE | 2019-11-04 12:08 | HPE_ITS ---
Date of service: 11/04/19 Time of Service: 12:09 Assessment and Plan Assessment and plan (1) Pneumothorax: Status: Acute Assessment and plan: A\\ Recurrent PTX. Chest tube placed by Dr. Smith. XRay done. I am not sure the tube is all the way in so I removed the Chest tube and placed another. Please see procedure Qualifiers: Encounter type: initial encounter Pneumothorax type: traumatic Qualified Code(s): S27.0XXA - Traumatic pneumothorax, initial encounter (2) Fracture of rib of left side: Status: Acute Assessment and plan: P\\ Continue pain meds, ISP Qualifiers: Encounter type: initial encounter Fracture type: closed Rib fracture type: multiple ribs Qualified Code(s): S22.42XA - Multiple fractures of ribs, left side, initial encounter for closed fracture (3) Fracture of left clavicle: Status: Acute Assessment and plan: Sling for comfort Qualifiers: Clavicle location: unspecified part of clavicle Encounter type: initial encounter Fracture alignment: nondisplaced Fracture type: closed Qualified Code(s): S42.002A - Fracture of unspecified part of left clavicle, initial encounter for closed fracture (4) Cirrhosis: Status: Chronic Assessment and plan: Continue Home meds Qualifiers: Ascites presence: without ascites Hepatic cirrhosis type: unspecified hepatic cirrhosis Qualified Code(s): K74.60 - Unspecified cirrhosis of liver History of Present Illness History of Present Illness Chief Complaint: Recurrent PTX Consults Consult date: 11/04/19 Requesting physician: Edwardo Smith Narrative: Mr. Urbina is a 64 year old male discharged yesterday. He was admitted tuesday night for rib fractures on the left, small 5% PTX and clavicle fracture. Tuesday morning CXR showed no PTX, his lungs were clear and his pain was controlled on Oxycodon. He was discharged home. He comes back today with increased pain and sob. CT scan of the chest showed a large PTX and a small pleural effusion. Dr. Smith placed an anterior chest tube. There was air and about 200 cc of old blood. CXR was done. Anterior CXR was difficult to read so patient was sent to the department for a lateral chest Xray for positioning of chest tube. Patients vital have been stable. Labs show elevated Cr. He is getting fluid right now. Review of Systems Constitutional Constitutional: Denies fever(s) Eyes Eyes: Denies change in vision Cardiovascular Cardiovascular: Denies chest pain, Denies irregular heart rhythm, Denies palpitations and Reports dyspnea Respiratory Respiratory: Denies cough and Reports dyspnea Musculoskeletal Comments: Crepitus of left chest wall as well as large area of ecchymosis Endocrine Endocrine: Denies palpitations PFSH Family History Mother Breast cancer Sister Breast cancer Heart disease Diabetes Sister Breast cancer Hypertension Brother Cancer leukemia Brother Heart disease Diabetes Hypertension Maternal Grandmother Heart disease Father Diabetes Hypertension Social History Smoking/Tobacco Use Status: Never Alcohol Intake: former Year quit: 2019 Substance use type: does not use and former substance user Do you feel safe at home: Yes Do you feel safe in your relationship?: Yes Meds Home Medications and Allergies Home Medications Medication Instructions Recorded Confirmed Type lisinopril 20 mg PO DAILY 02/01/19 11/04/19 History lactulose 20 g PO DIRECTED #0 ml 02/02/19 11/04/19 Rx pantoprazole [Protonix] 40 mg PO BID #60 tab 02/02/19 11/04/19 Rx rifaximin 550 mg PO BID 11/02/19 11/04/19 History oxycodone 5 mg PO Q6H PRN #20 tab MDD 4 tab 11/03/19 11/04/19 Rx Allergies Allergy/AdvReac Type Severity Reaction Status Date / Time zolpidem [From Ambien] AdvReac Unverified 11/04/19 10:35 Exam Const General: cooperative and no acute distress Orientation: alert, awake and oriented x3 Chest Chest: crepitus (left chest), localized rib tenderness with anteroposterior compression and other (ecchymosis left chest wall) Resp Effort & Inspection: able to speak in complete sentences Auscultation: breath sounds absent on th left Cardio Rate: regular rate Rhythm: regular rhythm Results Labs Result diagrams: 11/04/19 10:25 11/04/19 10:25 Labs: Laboratory Results - last 24 hr 11/04/19 11/04/19 10:25 10:25 WBC 9.51 RBC 4.07 L Hgb 12.1 L Hct 35.9 L MCV 88.2 MCH 29.7 MCHC 33.7 RDW 14.8 H Plt Count 162 MPV 8.5 Sodium 132 L Potassium 4.7 D Chloride 99 Carbon Dioxide 24.4 Anion Gap 8.6 BUN 44 H D Creatinine 2.48 H D Estimated GFR/1.73 m2 26.21 Glucose 128 H Calcium 9.7 Total Bilirubin 2.0 H AST 53 H ALT 37 Alkaline Phosphatase 82 Total Protein 7.3 Albumin 3.6 Last Vital Signs Temp 97.9 F 11/04/19 09:58 Pulse 83 11/04/19 10:33 Resp 14 11/04/19 10:54 BP 88/44 L 11/04/19 10:33 Pulse Ox 94 L 11/04/19 10:43 COVID-19 Screening Have you,or household,traveled outside [place] in last 14 days?: No Procedures Chest Tube Chest Tube 1: Chest tube location: Anterior Chest (second intercostal space left chest) Size of tube: 14 Chest tube procedure: Yes other Tube sutured to skin: Yes Sterile dressing applied: No Anesthesia: 1% Lidocaine Volume anesthetic (ml): 10 Incision made with: #11 blade Post procedure: sutured to skin Raymundo of air heard: Yes Tube Drainage: blood (170) Amount of initial drainage (ml): 170 Post procedure CXR?: Yes Patient tolerated procedure: Yes Progress: after informed consent was obtained the previously placed chest tube was removed and the chest was prepped with chlorhexidine. 1% Lidocaine was injected into the sibcutaneous tissue. I was approximately 2 inches from the skin to the ribs. The skin incision was increased slightly. A new Tj marina ter was placed through the skin incision. The tip hit a rib. The catheter was repositioned slightly upwards and I was then able to push it between the ribs in the second intercostal space. There was a raymundo of air. The needle and dilator were removed and the catheter was attached to the waterseal. Suction was placed to continuous at 20 cm of pressure. NO further blood was suctioned out. CXR was done. Chest tube looks in better position. Lung is up.
--- NOTE | 2019-11-04 12:15 | DI.RAD_ITS ---
EXAM: XR PORTABLE CHEST AP POST LINE CLINICAL HISTORY: chest tube placement TECHNIQUE: 2D digital imaging was performed. COMPARISON: CR,XR XR CHEST 2V PA LATERAL from 11/03/[address] CHEST WO from 11/04/2019 CR,XR XR PORTABLE CHEST AP POST LINE from 11/04/2019 FINDINGS: The left-sided chest tube has been moved inferiorly. There has been no change in the small left apic al pneumothorax. There are stable densities at the left lung base. The right lung appears clear. A left clavicle fracture is again noted. There is been previous excision of the distal end of the rig ht clavicle. IMPRESSION: Stable small left apical pneumothorax status post change in position of left chest tube. DATA REPOSITORY: RADIATION DOSE DELIVERED:
--- NOTE | 2019-11-04 12:20 | DI.RAD_ITS ---
EXAM: XR CHEST 1V IN DI DEPT CLINICAL HISTORY: s/p chest tube TECHNIQUE: 2D digital imaging was performed. COMPARISON: CR,XR XR PORTABLE CHEST AP POST LINE from 11/04/2019 FINDINGS: Two lateral views were performed. The chest tube projects in the left lung apex posteriorly. No pne umothorax is visible. Increased densities are again noted at the lung base, consistent with atelecta sis and effusion seen on previous CT. IMPRESSION: Chest tube is located at the posterior left lung apex. DATA REPOSITORY: RADIATION DOSE DELIVERED:
--- NOTE | 2019-11-04 12:31 | DI.VRAD_ITS ---
PROCEDURE INFORMATION: Exam: XR Chest, 1 View Exam date and time: 11/04/2019 12:17 PM Age: 64 years old Clinical indication: Device placement; Chest tube TECHNIQUE: Imaging protocol: XR of the chest Views: 1 view. COMPARISON: CT CHEST WO 11/04/2019 10:53 AM FINDINGS: Tubes, catheters and devices: Interval placement of left-sided chest tube which terminates over the left lung apex. Lungs: Lungs otherwise clear. Pleural space: Persistent small left apical pneumothorax. Redemonstrated small left-sided pleural effusion. Heart/Mediastinum: Cardiomediastinal silhouette is within normal limits. Bones/joints: There is an acute appearing left mid clavicular fracture with at least moderate displacement/foreshortening with apparent overlap of the bony fragments of approximately 4 cm. Multiple left-sided rib fractures are redemonstrated. There mild irregularity and widening of the right acromioclavicular joint which may be degenerative in nature. IMPRESSION: 1. Persistent small left apical pneumothorax and redemonstrated small left-sided pleural effusion but otherwise clear lungs. 2. Multiple acute appearing left-sided rib fractures. 3. Acute appearing left mid clavicular fracture. 4. Irregularity of the right acromioclavicular joint may be degenerative however correlation with point tenderness is recommended. Dictated and Authenticated by: Markos Chang MD. Ordering:REA Sheth MD
[2019-11-04 12:37] LABS: INR 1.1 (0.9-1.1)
--- NOTE | 2019-11-04 12:39 | DI.VRAD_ITS ---
PROCEDURE INFORMATION: Exam: XR Chest, 1 View Exam date and time: 11/04/2019 12:11 PM Age: 64 years old Clinical indication: Device placement; Chest tube TECHNIQUE: Imaging protocol: XR of the chest Views: 1 view. COMPARISON: CR XR PORTABLE CHEST AP POST LINE 11/04/2019 11:55 AM FINDINGS: The chest tube is not well visualized on this study due to overlapping structures however appears to project over the posterior upper lung. Prominent retrocardiac opacity is present. Small amount of fluid is seen along the presumed left major fissure. No acute bony findings identified. Vascular material is present projecting over the abdomen. Impression: Chest tube is not well visualized but projects over the posterior upper lung zone. Prominent retrocardiac opacity is nonspecific but is favored to represent persistent atelectasis/partial lung collapse related to the patient's known pneumothorax. Infectious or inflammatory process is not excluded in the appropriate clinical setting. Dictated and Authenticated by: Markos Chang MD. Ordering:MARCOS Brooke MD
--- NOTE | 2019-11-04 13:23 | DI.VRAD_ITS ---
PROCEDURE INFORMATION: Exam: XR Chest, 1 View Exam date and time: 11/04/2019 12:30 PM Age: 64 years old Clinical indication: Device placement; Chest tube TECHNIQUE: Imaging protocol: XR of the chest Views: 1 view. COMPARISON: CR XR CHEST 2V PA LATERAL 11/04/2019 12:12 PM FINDINGS: Pigtail catheter appears to have been manipulated with the distal tip now projecting along the left lateral chest wall. The proximal visualized/radiopaque portion of the tubing projects/terminates over the mid left lung. Stable bony structures as previously described. Stable cardiomediastinal silhouette. Similar suspected small left-sided pleural effusion. Impression: Suspected interval manipulation of patient's left-sided thoracostomy tube as detailed. Correlate with physical inspection of the catheter. Stable exam otherwise. Dictated and Authenticated by: Markos Chang MD. Ordering:REA Sheth MD
[2019-11-04] MEDS: Pantoprazole 40 MG VIAL IVP (13:43)
[2019-11-04] MEDS: Normal Saline 1,000 ML 150 ML IV (13:50)
[2019-11-04] MEDS: HYDROmorphone 2 MG/ML VIAL 0.5 MG IVP (14:12)
[2019-11-04] MEDS: Lactulose 20 GM/30 ML CUP PO ×2 (14:14→19:30)
--- NOTE | 2019-11-04 19:00 | DI.RAD_ITS ---
EXAM: XR PORTABLE CHEST AP CLINICAL HISTORY: decrease sao2 TECHNIQUE: 2D digital imaging was performed. COMPARISON: CR XR PORTABLE CHEST AP POST LINE from 11/05/2019 FINDINGS: A PICC line has been inserted via the right arm.. The tip projects in the right atrium and should be pulled back 5-6 cm. The right lung appears clear. A catheter is seen over left chest. It appears to be positioned more inferiorly when compared with the previous exam. There has been a slight incre ase in size the left pneumothorax. IMPRESSION: Tip of PICC line projects in the right atrium. Slight interval increase in size of left pneumothorax . DATA REPOSITORY: RADIATION DOSE DELIVERED:
[2019-11-04 19:45] LABS: HGB 11.5 g/dL (13.5-17.5); Mean Corp. HGB Concentration 32.9 g/dL (32.0-36.0); Mean Corpuscular Hemoglobin 29.3 pg (27.0-33.0); Mean Corpuscular Volume 89.3 fL (80-95); Mean Platelet Volume 8.7 fL (8.0-11.0); Platelet Count 118 x1000/uL (130-400); RBC 3.92 m/cumm (4.50-6.00); RBC Distribution Width 15.1 % (11.8-14.1); White Blood Cell Count 10.41 k/cumm (4.4-10.8)
[2019-11-04 19:51] LABS: BE -9.9 mmol/L (-3-3); HCO3 18 mmol/L (22-28); pCO2 44 mmHg (34-47); pH 7.22 (7.35-7.45); pO2 73 mmHg (83-108); sO2 93 % (94-98); tCO2 17 mmol/L (22-29)
--- NOTE | 2019-11-04 19:51 | NUR.NOTE ---
pt transferred to ICU room 221 for increased drowsiness. Report given and pt transferred at 1940. Nursing Note:
[2019-11-04 19:52] LABS: Site Left Radial
[2019-11-04 19:53] LABS: FIO2L 3 L
[2019-11-04 19:55] LABS: Ammonia 42 umol/L (11-32)
[2019-11-04 19:59] LABS: ALT 32 U/L (16-63); AST 47 U/L (15-37); Albumin 3.4 g/dL (3.4-5.0); Alkaline Phosphatase 79 U/L (46-116); Anion Gap 8.3 mmol/L (3-11); BUN 44 mg/dL (7-18); Bilirubin, Total 1.6 mg/dL (0.2-1.0); CO2 19.7 mmol/L (21.0-32.0); CREATININE 1.78 mg/dL (0.70-1.30); Calcium 8.7 mg/dL (8.5-10.1); Chloride 104 mmol/L (98-107); Estimated GFR 38.43 (mL/min/1.73m2); Glucose 158 mg/dL (74-106); Sodium 132 mmol/L (136-145); Total Protein 6.8 g/dL (6.4-8.2)
[2019-11-04] MEDS: Naloxone 0.4 MG/ML VIAL IVP (20:00)
--- NOTE | 2019-11-04 20:25 | DI.VRAD_ITS ---
PROCEDURE INFORMATION: Exam: XR Chest, 1 View Exam date and time: 11/04/2019 8:06 PM Age: 64 years old Clinical indication: Abnormal findings; Other: Decrease sao2; Prior surgery; Surgery date: Post-operative (0-2 days); Surgery type: Chest tube for ptx TECHNIQUE: Imaging protocol: XR of the chest Views: 1 view. COMPARISON: XR PORTABLE CHEST AP POST LINE 11/04/2019 12:24 PM FINDINGS: Left-sided thoracostomy tube in place unchanged. No evidence of pneumothorax. Mild left basilar atelectasis. Moderate cardiomegaly unchanged. Left midclavicular fracture with moderate displacement unchanged. Left-sided rib fractures unchanged. IMPRESSION: No significant change from the prior examination. Dictated and Authenticated by: Kevin El MD. Ordering:DARIN Britton MD
--- NOTE | 2019-11-04 20:33 | W.PM.PROGNOT ---
Date of Service Date of service: 11/04/19 Time of Service: 20:33 Assessment and Plan Assessment and plan (1) Pneumothorax: Status: Acute Assessment and plan: CXR no PTX Atelectasis Qualifiers: Pneumothorax type: traumatic Encounter type: initial encounter Qualified Code(s): S27.0XXA - Traumatic pneumothorax, initial encounter (2) Fracture of rib of left side: Status: Acute Assessment and plan: Chest tube in place Qualifiers: Encounter type: initial encounter Rib fracture type: multiple ribs Fracture type: closed Qualified Code(s): S22.42XA - Multiple fractures of ribs, left side, initial encounter for closed fracture (3) Fracture of left clavicle: Status: Acute Qualifiers: Encounter type: initial encounter Clavicle location: unspecified part of clavicle Fracture type: closed Fracture alignment: nondisplaced Qualified Code(s): S42.002A - Fracture of unspecified part of left clavicle, initial encounter for closed fracture (4) Cirrhosis: Status: Chronic Assessment and plan: Amonia slightly elevated Give Lactulose q4 h Qualifiers: Hepatic cirrhosis type: unspecified hepatic cirrhosis Ascites presence: without ascites Qualified Code(s): K74.60 - Unspecified cirrhosis of liver (5) Drug abuse: Status: Acute Assessment and plan: Admitted to taking 18 Oxycodons at home Subjective Subjective Interval history since last seen: Called to see patient as he was somnolent with episodes of apnea. he has had low uop. Patient transfered to ICU for closer observation. Labs drawn. Cr still up but improved. Rosario placed and he had 300 cc of yellow urine Ammonia slightly up at 47. when questioned he did state that he may have taken quite a few of the oxycodon prior to coming into the ER. he then got 1 mg of Dilauded in the ER and another 0.5 on Med Surg I gave him Narcan which woke him up a little Exam Resp Auscultation: diminished lung sounds Cardio Rate: tachycardic Rhythm: regular rhythm GI Inspection: normal to inspection and obesity Palpation: soft and nontender Auscultation: normal bowel sounds Objective Objective Clinical Data: Abnormal lab results 11/04/19 11/04/19 11/04/19 Range/Units 10:25 10:25 19:37 RBC 4.07 L (4.50-6.00) m/cumm Hgb 12.1 L (13.5-17.5) g/dL Hct 35.9 L (40.0-50.0) % RDW 14.8 H (11.8-14.1) % Plt Count (130-400) x1000/uL ABG pH (7.35-7.45) ABG pO2 (83-108) mmHg ABG HCO3 (22-28) mmol/L ABG Total CO2 (22-29) mmol/L ABG O2 Saturation (94-98) % ABG Base Excess (-3-3) mmol/L Sodium 132 L (136-145) mmol/L Carbon Dioxide (21.0-32.0) mmol/L BUN 44 H D (7-18) mg/dL Creatinine 2.48 H D (0.70-1.30) mg/dL Glucose 128 H (74-106) mg/dL Total Bilirubin 2.0 H (0.2-1.0) mg/dL AST 53 H (15-37) U/L Ammonia 42 H (11-32) umol/L 11/04/19 11/04/19 11/04/19 Range/Units 19:37 19:37 19:52 RBC 3.92 L (4.50-6.00) m/cumm Hgb 11.5 L (13.5-17.5) g/dL Hct 35.0 L (40.0-50.0) % RDW 15.1 H (11.8-14.1) % Plt Count 118 L (130-400) x1000/uL ABG pH 7.22 L (7.35-7.45) ABG pO2 73 L (83-108) mmHg ABG HCO3 18 L (22-28) mmol/L ABG Total CO2 17 L (22-29) mmol/L ABG O2 Saturation 93 L (94-98) % ABG Base Excess -9.9 L (-3-3) mmol/L Sodium 132 L (136-145) mmol/L Carbon Dioxide 19.7 L (21.0-32.0) mmol/L BUN 44 H (7-18) mg/dL Creatinine 1.78 H D (0.70-1.30) mg/dL Glucose 158 H (74-106) mg/dL Total Bilirubin 1.6 H (0.2-1.0) mg/dL AST 47 H (15-37) U/L Ammonia (11-32) umol/L Vital Signs Temperature 97.7 F 11/04/19 18:33 Temperature Source Tympanic 11/04/19 18:33 Pulse 108 H 11/04/19 18:33 Pulse Rhythm Regular 11/04/19 16:26 Pulse 80 11/04/19 13:31 Respiratory Rate 13 11/04/19 18:37 Respiratory Effort Non-Labored 11/04/19 16:26 Respiratory Depth Normal 11/04/19 16:26 Respiratory Pattern Normal 11/04/19 16:26 Blood Pressure 113/70 11/04/19 18:33 Blood Pressure Mean 81 11/04/19 13:30 Pulse Oximetry 93 L 11/04/19 18:37 Oxygen Delivery Method Nasal Cannula 11/04/19 18:37 Oxygen Flow Rate 3 11/04/19 18:37 Pain Level 3 11/04/19 15:42 Intake & Output 11/03/19 11/04/19 11/04/19 23:59 11:59 23:59 Intake Total 1999 Output Total 200 / 550 350 / 550 Balance -200 / 1450 1650 / 1450 Weight 215 lb 214 lb 15.987 oz Intake: IV 1999 Output: Chest Tube Drainage 200 / 450 250 / 450 Urine 100 / 100 Other: Urine Color Yellow Urine Appearance Sediment Urine Odor None Voiding Methods Urinal Laboratory Results WBC 10.41 k/cumm (4.4-10.8) 11/04/19 19:37 RBC 3.92 m/cumm (4.50-6.00) L 11/04/19 19:37 Hgb 11.5 g/dL (13.5-17.5) L 11/04/19 19:37 Hct 35.0 % (40.0-50.0) L 11/04/19 19:37 MCV 89.3 fL (80-95) 11/04/19 19:37 MCH 29.3 pg (27.0-33.0) 11/04/19 19:37 MCHC 32.9 g/dL (32.0-36.0) 11/04/19 19:37 RDW 15.1 % (11.8-14.1) H 11/04/19 19:37 Plt Count 118 x1000/uL (130-400) L 11/04/19 19:37 MPV 8.7 fL (8.0-11.0) 11/04/19 19:37 PT 11.0 sec (9.3-11.0) 11/04/19 10:45 INR 1.1 (0.9-1.1) 11/04/19 10:45 ABG Sample Site Left radial 11/04/19 19:52 ABG pH 7.22 (7.35-7.45) L 11/04/19 19:52 ABG pCO2 44 mmHg (34-47) 11/04/19 19:52 ABG pO2 73 mmHg (83-108) L 11/04/19 19:52 ABG HCO3 18 mmol/L (22-28) L 11/04/19 19:52 ABG Total CO2 17 mmol/L (22-29) L 11/04/19 19:52 ABG O2 Saturation 93 % (94-98) L 11/04/19 19:52 ABG Base Excess -9.9 mmol/L (-3-3) L 11/04/19 19:52 Oxygen Liter Flow 3 L 11/04/19 19:52 Sodium 132 mmol/L (136-145) L 11/04/19 19:37 Potassium 5.0 mmol/L (3.5-5.1) 11/04/19 19:37 Chloride 104 mmol/L (98-107) 11/04/19 19:37 Carbon Dioxide 19.7 mmol/L (21.0-32.0) L 11/04/19 19:37 Anion Gap 8.3 mmol/L (3-11) 11/04/19 19:37 BUN 44 mg/dL (7-18) H 11/04/19 19:37 Creatinine 1.78 mg/dL (0.70-1.30) H D 11/04/19 19:37 Estimated GFR/1.73 m2 38.43 (mL/min/1.73m2) 11/04/19 19:37 Glucose 158 mg/dL (74-106) H 11/04/19 19:37 Calcium 8.7 mg/dL (8.5-10.1) 11/04/19 19:37 Total Bilirubin 1.6 mg/dL (0.2-1.0) H 11/04/19 19:37 AST 47 U/L (15-37) H 11/04/19 19:37 ALT 32 U/L (16-63) 11/04/19 19:37 Alkaline Phosphatase 79 U/L (46-116) 11/04/19 19:37 Ammonia 42 umol/L (11-32) H 11/04/19 19:37 Total Protein 6.8 g/dL (6.4-8.2) 11/04/19 19:37 Albumin 3.4 g/dL (3.4-5.0) 11/04/19 19:37
[2019-11-04 20:45] LABS: Bilirubin Negative (Negative); Blood Negative (Negative); Clarity Clear (Clear); Glucose 500 mg/dL (Negative); Ketones Negative (Negative); Leukocyte Esterase Negative (Negative); Nitrite Negative (Negative); Specific Gravity 1.025 (1.005-1.025); Urobilinogen 0.2 EU/dL (Up TO 0.2)
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
[2019-11-04 21:43] LABS: BE -8.8 mmol/L (-3-3); HCO3 19 mmol/L (22-28); pCO2 44 mmHg (34-47); pH 7.24 (7.35-7.45); pO2 64 mmHg (83-108); sO2 90 % (94-98); tCO2 18 mmol/L (22-29)
[2019-11-04 21:44] LABS: FIO2 30 %; Site Right Radial
[2019-11-05] VITALS (101 sets, daily range): BP systolic 92–148; BP diastolic 37–94; PULSE 80–174; RESP 8–30; TEMP 36.5–37; O2SAT 89–100
[2019-11-05] MEDS: fentaNYL 100 MCG/2 ML VIAL 25 MCG IVP ×2 (06:17→07:52)
[2019-11-05 07:11] LABS: Anion Gap 10.2 mmol/L (3-11); BUN 36 mg/dL (7-18); CO2 20.8 mmol/L (21.0-32.0); CREATININE 1.19 mg/dL (0.70-1.30); Calcium 8.6 mg/dL (8.5-10.1); Chloride 109 mmol/L (98-107); Glucose 117 mg/dL (74-106); Potassium 5.1 mmol/L (3.5-5.1); Sodium 140 mmol/L (136-145)
[2019-11-05] MEDS: Normal Saline Flush 10 ML SYR IVP ×2 (07:54→12:05)
--- NOTE | 2019-11-05 08:30 | DI.RAD_ITS ---
EXAM: 2D digital imaging was performed. CLINICAL HISTORY: Liver laceration. COMPARISON: CT CT CHEST/ABD/PEL W from 11/02/[address] CHEST WO from 11/04/2019 TECHNIQUE: Supine views of the abdomen performed. FINDINGS: BOWEL GAS PATTERN: Non-specific mild gaseous distension. No definite evidence of obstruction.. CALCIFICATIONS: No radiopaque calcifications. OSSEOUS STRUCTURES: Severe scoliosis OTHER FINDINGS: TIPS IMPRESSION: 1. Non-specific bowel gas pattern. 2. DATA REPOSITORY: RADIATION DOSE DELIVERED:
--- NOTE | 2019-11-05 08:31 | DI.RAD_ITS ---
EXAM: XR PORTABLE CHEST AP POST LINE CLINICAL HISTORY: Chest tube TECHNIQUE: 2D digital imaging was performed. COMPARISON: CR,XR XR PORTABLE CHEST AP POST LINE from 11/04/2019 FINDINGS: The left-sided pigtail catheter shows a change in position, now located more laterally and inferiorly when compared with the previous exam. There is a stable tiny apical pneumothorax. There is a small left pleural effusion and basilar atelectasis. The right lung remains clear. A left clavicle fract ure is again noted. IMPRESSION: Stable tiny left apical pneumothorax. DATA REPOSITORY: RADIATION DOSE DELIVERED:
[2019-11-05 08:34] LABS: BE -8.4 mmol/L (-3-3); HCO3 20 mmol/L (22-28); pCO2 51 mmHg (34-47); pO2 183 mmHg (83-108)
[2019-11-05 08:36] LABS: FIO2 60 %; Site Left Radial; sO2 > 99 % (94-98)
[2019-11-05] MEDS: Lactulose 20 GM/30 ML CUP PO ×2 (08:44→11:26)
[2019-11-05 08:57] LABS: Ammonia 51 umol/L (11-32)
--- NOTE | 2019-11-05 09:23 | INITIAL_ITS ---
- If Service Date Differs Date of service: 11/05/19 Time of Service: 09:23 Care Management Initial Assess REASON FOR HOSPITALIZATION:: Pneumothorax PAST MEDICAL HISTORY/PAST SURGICAL HISTORY:: Medical History . Cirrhosis (Chronic). Esophageal varices (Chronic). Hepatic encephalopathy (Acute). Hepatitis C (Chronic). History of GI bleed (Inactive). variceal. Hypertension (Chronic). Liver disease, chronic (Chronic). Pancytopenia (Acute). Surgical History . Previous back surgery (Inactive). S/P hernia repair (Inactive). S/P shoulder surgery (Inactive). 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) PREVIOUS FUNCTIONAL STATUS/SOCIAL/FAMILY SUPPORTS:: Alonzo lives alone in an apartment in [place]. He does not drive but is independent with his ADLs at baseline. He shares his support system consists of lots of friends in the community. Alonzo works part-time for the [employer] in [place]. CURRENT FUNCTIONAL STATUS:: Alonzo remains in the ICU today. He is struggling with breathing and oxygenation so he has been placed on Bipap. Alonzo has indicated that he does not want to be intubated, although according to the provider, this morning they did approach him about it again as his condition was deteriorating. When met with Alonzo he had just had a block done by anesthesia and was not in any pain. The visit was brief as Alonzo kept falling asleep. This afternoon he woke up and was a bit confused and tried to pull out his chest tube and monitor leads. The episode lasted only a short time and nursing was able to redirect him and help him to regain control. ADVANCE DIRECTIVES:: None on file Has patient been provided with info about the portal/API?: Yes Did the patient sign up for the portal?: Yes (previously) CODE STATUS:: DNR/DNI INSURANCE COVERAGE / FINANCIAL ISSUES:: Medicare and [place] CURRENT HOME/COMMUNITY SERVICES/EQUIPMENT:: None currently PRIMARY CARE PHYSICIAN:: IMANI Alaniz POTENTIAL DISCHARGE NEEDS:: Follow up with PCP and discharge plan of care PATIENT/FAMILY EDUCATION NEEDS:: Discharge plan, limitations, follow up plan, Ask Me Three. TRANSPORTATION:: via private vehicle with friend PLAN:: Alonzo remains ICU level of care today. He will likely benefit from new services at discharge, although the plan is not clear at this time. CM will continue to support Alonzo and assess for discharge planning concerns. Readmission - Within the Past 30 Days Yes or No: Y - Date of First Admission Date of 1st Admission: 11/02/19 - Date of this Admission Date of Admission: 11/04/19 This admission was: Through ED - Office Visit Since 1st Admission Have you seen your PCP in the office since discharge?: No - I. Interview patient and/or Family Difficulty reaching your doctor or getting an office appt?: No Have you had trouble purchasing/ or taking medication?: No Have you had trouble with getting meals at home?: No
--- NOTE | 2019-11-05 10:59 | PHA.REVIEW ---
Pharmacy Admission Review - Admission Clinical Review (Last Updated 11/04/19 @ 21:19 by Jessica Renteria MD) Hepatic encephalopathy (Acute) CO2 narcosis (Acute) Pneumothorax (Acute) Fracture of rib of left side (Acute) Fracture of left clavicle (Acute) zolpidem [From Ambien] Adverse Reaction (Unverified 11/04/19 10:35) Height 5 ft 4 in Weight 104.8 kg - Renal Dosing Renal Dosing: BUN 36 mg/dL (7-18) H 11/05/19 06:15 Creatinine 1.19 mg/dL (0.70-1.30) D 11/05/19 06:15 Medications needing adjustments: Reviewed (Crcl ~66.8 mL/min using adjusted body weight. Current meds okay) - Anticoagulation Anticoagulation: Hgb 11.5 g/dL (13.5-17.5) L 11/04/19 19:37 Hct 35.0 % (40.0-50.0) L 11/04/19 19:37 Plt Count 118 x1000/uL (130-400) L 11/04/19 19:37 INR Cancelled 11/04/19 19:05 Creatinine 1.19 mg/dL (0.70-1.30) D 11/05/19 06:15 DVT Prohphylaxis: Reviewed (being held due to low plt and cirrhosis per provider) Therapeutic Anticoagulation: N/A - Opiate Usage Evaluate Pain Scale/Pains Meds: Reviewed Scheduled Bowel Reg ordered if on Opiates?: No (has lactulose ordered) - Relevant Labs Sodium 140 mmol/L (136-145) 11/05/19 06:15 Potassium 5.1 mmol/L (3.5-5.1) 11/05/19 06:15 Chloride 109 mmol/L (98-107) H 11/05/19 06:15 Electrolytes, C-Reactive P, ESR: Reviewed (watch K+ and Cl) - DM Control DM Control: Glucose 117 mg/dL (74-106) H 11/05/19 06:15 Insulin Dosing: N/A (A1c from 09/2019 was 9.0, provider aware) - Heart Failure/LA EF%, VICKEY's, B-Blockers, Diuretics: N/A - BP Control BP Control: Blood Pressure [Right Arm] 108/56 Blood Pressure [Right Arm] 121/85 If elevated: N/A - Qtc Review If Elevated: N/A - IV to PO Switch IV Medications: N/A - Home Meds Home Med List reviewed: Reviewed Relevent Home Meds Not ordered & why?: lisinopril (held due to FRANKY), oxycodone (has other pain meds ordered) - Current meds Current Medication Order Review: Intervened (fixed timing of pantoprazole based on med administration time policy. Watch for admin of mylanta, may decrease effectiveness of lactulose.) - Comments Comments/Follow Ups: Watch BP, HR, K+, Cl, BG, and for med changes.
[2019-11-05 11:13] LABS: BE -7.8 mmol/L (-3-3); HCO3 20 mmol/L (22-28); pCO2 48 mmHg (34-47); pH 7.23 (7.35-7.45); pO2 89 mmHg (83-108); sO2 97 % (94-98); tCO2 19 mmol/L (22-29)
[2019-11-05 11:16] LABS: FIO2 35 %; Site Left Radial
--- NOTE | 2019-11-05 11:38 | W.PM.PROGNOT ---
Date of Service Date of service: 11/05/19 Time of Service: 11:39 Assessment and Plan Assessment and plan (1) Hepatic encephalopathy: Status: Acute Assessment and plan: Patient has had problems with insulin bleeding in the past. Continue lactulose and rifampin. And to follow his ammonia levels closely. If they continue to rise we will have to consider transfer (2) CO2 narcosis: Status: Acute (3) Pneumothorax: Status: Acute Assessment and plan: 50cc out in last 4hrs. Qualifiers: Encounter type: initial encounter Pneumothorax type: traumatic Qualified Code(s): S27.0XXA - Traumatic pneumothorax, initial encounter (4) Fracture of rib of left side: Status: Acute Assessment and plan: pt is having signif pain from Fx and went home and took 18 oxycodone tablets in 24hrs. Anesthesia is consulted for rib blocks for pain control. Will start gabepentin. Pt cannot be on tylenol or nsaid's due to liver failure/bleeding risk. possible ketamine drip for pain/anxiety control CPAP/BiPAP as needed for oxygentation. pt is adamant that he is a DNI. Continue with aggressive pulmonary toilet. Patient is high risk for pneumonia. We will continue to follow his catheter output In light of recent trauma / cirrhosis we will hold anticoagulants for DVT prophylaxis and use nonpharmacological measures 2hrs spent in critical care time w/ pt today Qualifiers: Encounter type: initial encounter Fracture type: closed Rib fracture type: multiple ribs Qualified Code(s): S22.42XA - Multiple fractures of ribs, left side, initial encounter for closed fracture (5) Fracture of left clavicle: Status: Acute Qualifiers: Clavicle location: unspecified part of clavicle Encounter type: initial encounter Fracture alignment: nondisplaced Fracture type: closed Qualified Code(s): S42.002A - Fracture of unspecified part of left clavicle, initial encounter for closed fracture (6) Cirrhosis: Status: Chronic Assessment and plan: Hep C adn ETOH abuse. GI felt it was more due to ETOH use. Pt states he is 14m sober. Qualifiers: Ascites presence: without ascites Hepatic cirrhosis type: unspecified hepatic cirrhosis Qualified Code(s): K74.60 - Unspecified cirrhosis of liver (7) Red blood cell antibody positive with compatible PRBC difficult to obtain: Status: Acute (8) Gallstones: Status: Acute (9) Left inguinal hernia: Status: Acute Subjective Subjective Interval history since last seen: pt seen and examined. pt is on biPAP. He appears to be exhibiting asterixis. He did take a large amount of oxycodone at home prior to returning to the ED for uncontrolled pain from rib Fx. He answers questions appropriately birthday/date/place. He is adement that he does not want to be intubated. We are having a hard time controlling his pain and oxygenating the pt w./ out intubating. Again, pt adamantly is refusing intubations. Recent blood gas reviewed, is is relatively unchanged. pt has been taking his lactulose orally. He has not had a BM. We were able to place a PICC. Anesthesia is going to do rib blocks for pain control. We will repeat labs at this time. He has had a TIPS in the past. He has also had problems with encephalopathy in the past. He is on lactulose and rifampin for this. He has had multiple episodes of GI bleeds in the past. He has had multiple EGDs without any source for the bleeding. He does have a history of varices. 15:00 Anethesia was successfully able to do rib blocks for pain control. Shortly after this procedure, pt b/c very agitated adn aggressive- ripping out his lines and saying he is going to leave AMA. Staff was able to calm him down and currently he is taking to his AA sponser. The rib blocks are working well and pt has no pain. I think the oxycodone has worn off and he is waking up. His respiratory status is much improved. He is more awake and alert. He removed his CPAP. Sats are around 92. He should wear CPAP at night given his body habitus and respiratory pattern. His last set of blocks was tuesday night- they only last about 14hrs. No further ouput from PTX catheter. He did have a small BM. Exam Const General: anxious and ill appearing Nutritional Appearance: obese Orientation: oriented to person, oriented to place and oriented to time [facility] Head: normal to inspection Ears: hearing grossly normal bilaterally General nose exam: external nose normal Face and sinus: face symmetric and no crepitus Teeth and gingiva: fair dentition Eyes Other: no jaundice Chest Chest: abnormal inspection of the chest, localized rib tenderness with anteroposterior compression and tenderness Other: lg bruise over left anterior chest wall deformity of clavicle SubC. air and swelling. significant pain tube site is dressed Resp Effort & Inspection: able to speak in complete sentences and abnormal respiratory pattern Other: R lung is cta. L lung shows decreased volumes. I did not undress the PTX catheter today. there is no air leak. There is about 50cc drainage in the last 4hrs. 500cc overall. Cardio Rate: regular rate Rhythm: regular rhythm Other: NSR and BP has been stable GI Inspection: distended and large pannus Palpation: firm and no guarding Objective Objective Clinical Data: Abnormal lab results 11/04/19 11/04/19 11/04/19 Range/Units 18:57 19:37 19:37 RBC (4.50-6.00) m/cumm Hgb (13.5-17.5) g/dL Hct (40.0-50.0) % RDW (11.8-14.1) % Plt Count (130-400) x1000/uL ABG pH (7.35-7.45) ABG pCO2 (34-47) mmHg ABG pO2 (83-108) mmHg ABG HCO3 (22-28) mmol/L ABG Total CO2 (22-29) mmol/L ABG O2 Saturation (94-98) % ABG Base Excess (-3-3) mmol/L Sodium 132 L (136-145) mmol/L Chloride (98-107) mmol/L Carbon Dioxide 19.7 L (21.0-32.0) mmol/L BUN 44 H (7-18) mg/dL Creatinine 1.78 H D (0.70-1.30) mg/dL Glucose 158 H (74-106) mg/dL Total Bilirubin 1.6 H (0.2-1.0) mg/dL AST 47 H (15-37) U/L Ammonia 42 H (11-32) umol/L Urine Glucose 500 H (Negative) mg/dL 11/04/19 11/04/19 11/04/19 Range/Units 19:37 19:52 21:40 RBC 3.92 L (4.50-6.00) m/cumm Hgb 11.5 L (13.5-17.5) g/dL Hct 35.0 L (40.0-50.0) % RDW 15.1 H (11.8-14.1) % Plt Count 118 L (130-400) x1000/uL ABG pH 7.22 L 7.24 L (7.35-7.45) ABG pCO2 (34-47) mmHg ABG pO2 73 L 64 L (83-108) mmHg ABG HCO3 18 L 19 L (22-28) mmol/L ABG Total CO2 17 L 18 L (22-29) mmol/L ABG O2 Saturation 93 L 90 L (94-98) % ABG Base Excess -9.9 L -8.8 L (-3-3) mmol/L Sodium (136-145) mmol/L Chloride (98-107) mmol/L Carbon Dioxide (21.0-32.0) mmol/L BUN (7-18) mg/dL Creatinine (0.70-1.30) mg/dL Glucose (74-106) mg/dL Total Bilirubin (0.2-1.0) mg/dL AST (15-37) U/L Ammonia (11-32) umol/L Urine Glucose (Negative) mg/dL 11/05/19 11/05/19 11/05/19 Range/Units 06:15 08:30 08:42 RBC (4.50-6.00) m/cumm Hgb (13.5-17.5) g/dL Hct (40.0-50.0) % RDW (11.8-14.1) % Plt Count (130-400) x1000/uL ABG pH 7.20 L (7.35-7.45) ABG pCO2 51 H (34-47) mmHg ABG pO2 183 H (83-108) mmHg ABG HCO3 20 L (22-28) mmol/L ABG Total CO2 (22-29) mmol/L ABG O2 Saturation > 99 H (94-98) % ABG Base Excess -8.4 L (-3-3) mmol/L Sodium (136-145) mmol/L Chloride 109 H (98-107) mmol/L Carbon Dioxide 20.8 L (21.0-32.0) mmol/L BUN 36 H (7-18) mg/dL Creatinine (0.70-1.30) mg/dL Glucose 117 H (74-106) mg/dL Total Bilirubin (0.2-1.0) mg/dL AST (15-37) U/L Ammonia 51 H (11-32) umol/L Urine Glucose (Negative) mg/dL 11/05/19 Range/Units 11:10 RBC (4.50-6.00) m/cumm Hgb (13.5-17.5) g/dL Hct (40.0-50.0) % RDW (11.8-14.1) % Plt Count (130-400) x1000/uL ABG pH 7.23 L (7.35-7.45) ABG pCO2 48 H (34-47) mmHg ABG pO2 (83-108) mmHg ABG HCO3 20 L (22-28) mmol/L ABG Total CO2 19 L (22-29) mmol/L ABG O2 Saturation (94-98) % ABG Base Excess -7.8 L (-3-3) mmol/L Sodium (136-145) mmol/L Chloride (98-107) mmol/L Carbon Dioxide (21.0-32.0) mmol/L BUN (7-18) mg/dL Creatinine (0.70-1.30) mg/dL Glucose (74-106) mg/dL Total Bilirubin (0.2-1.0) mg/dL AST (15-37) U/L Ammonia (11-32) umol/L Urine Glucose (Negative) mg/dL Vital Signs Temperature 36.9 C 11/05/19 07:45 Temperature Source Temporal Artery Scan 11/05/19 07:45 Pulse 106 H 11/05/19 10:47 Pulse Rhythm Regular 11/04/19 16:26 Pulse 105 H 11/05/19 09:20 Respiratory Rate 16 11/05/19 10:47 Respiratory Effort 11/05/19 07:45 Respiratory Depth Normal 11/05/19 07:45 Respiratory Pattern Apnea 11/05/19 07:45 Blood Pressure 108/56 L 11/05/19 04:03 Blood Pressure Mean 73 11/05/19 04:03 Blood Pressure Position Supine 11/05/19 07:45 Pulse Oximetry 98 11/05/19 10:47 Oxygen Delivery Method Nasal Cannula 11/05/19 07:45 Oxygen Flow Rate 5 11/05/19 07:45 Fraction of Inspired Oxygen (FIO2) 35 11/05/19 10:47 Pain Level 2 11/05/19 04:03 Intake & Output 11/04/19 11/04/19 11/05/19 11:59 23:59 11:59 Intake Total 4000 / 4000 0 / 0 Output Total 200 / 1000 800 / 1000 160 / 160 Balance -200 / 3000 3200 / 3000 -160 / -160 Weight 97.522 kg 97.522 kg 104.8 kg Intake: IV 4000 / 4000 0 / 0 Output: Chest Tube Drainage 200 / 450 250 / 450 160 / 160 Urine 550 / 550 Other: Urine Color Light Treva Yellow Urine Appearance Clear Clear Urine Odor None None Comment Rosario intact and draining clear straw colored urine. Voiding Methods Urinal Laboratory Results WBC 10.41 k/cumm (4.4-10.8) 11/04/19 19:37 RBC 3.92 m/cumm (4.50-6.00) L 11/04/19 19:37 Hgb 11.5 g/dL (13.5-17.5) L 11/04/19 19:37 Hct 35.0 % (40.0-50.0) L 11/04/19 19:37 MCV 89.3 fL (80-95) 11/04/19 19:37 MCH 29.3 pg (27.0-33.0) 11/04/19 19:37 MCHC 32.9 g/dL (32.0-36.0) 11/04/19 19:37 RDW 15.1 % (11.8-14.1) H 11/04/19 19:37 Plt Count 118 x1000/uL (130-400) L 11/04/19 19:37 MPV 8.7 fL (8.0-11.0) 11/04/19 19:37 PT Cancelled 11/04/19 19:05 INR Cancelled 11/04/19 19:05 ABG Sample Site Left radial 11/05/19 11:10 ABG pH 7.23 (7.35-7.45) L 11/05/19 11:10 ABG pCO2 48 mmHg (34-47) H 11/05/19 11:10 ABG pO2 89 mmHg (83-108) 11/05/19 11:10 ABG HCO3 20 mmol/L (22-28) L 11/05/19 11:10 ABG Total CO2 19 mmol/L (22-29) L 11/05/19 11:10 ABG O2 Saturation 97 % (94-98) 11/05/19 11:10 ABG Base Excess -7.8 mmol/L (-3-3) L 11/05/19 11:10 Oxygen Liter Flow Bipap 16/5 L 11/05/19 11:10 FiO2 35 % 11/05/19 11:10 Sodium 140 mmol/L (136-145) 11/05/19 06:15 Potassium 5.1 mmol/L (3.5-5.1) 11/05/19 06:15 Chloride 109 mmol/L (98-107) H 11/05/19 06:15 Carbon Dioxide 20.8 mmol/L (21.0-32.0) L 11/05/19 06:15 Anion Gap 10.2 mmol/L (3-11) 11/05/19 06:15 BUN 36 mg/dL (7-18) H 11/05/19 06:15 Creatinine 1.19 mg/dL (0.70-1.30) D 11/05/19 06:15 Estimated GFR/1.73 m2 >= 60.00 (mL/min/1.73m2) 11/05/19 06:15 Glucose 117 mg/dL (74-106) H 11/05/19 06:15 Calcium 8.6 mg/dL (8.5-10.1) 11/05/19 06:15 Total Bilirubin 1.6 mg/dL (0.2-1.0) H 11/04/19 19:37 AST 47 U/L (15-37) H 11/04/19 19:37 ALT 32 U/L (16-63) 11/04/19 19:37 Alkaline Phosphatase 79 U/L (46-116) 11/04/19 19:37 Ammonia 51 umol/L (11-32) H 11/05/19 08:42 Total Protein 6.8 g/dL (6.4-8.2) 11/04/19 19:37 Albumin 3.4 g/dL (3.4-5.0) 11/04/19 19:37 Urine Color Treva (Yellow) 11/04/19 18:57 Urine Clarity Clear (Clear) 11/04/19 18:57 Urine pH 5.0 (5-8) 11/04/19 18:57 Ur Specific [place] 1.025 (1.005-1.025) 11/04/19 18:57 Urine Protein Negative mg/dL (Negative) 11/04/19 18:57 Urine Ketones Negative mg/dL (Negative) 11/04/19 18:57 Urine Blood Negative (Negative) 11/04/19 18:57 Urine Nitrite Negative (Negative) 11/04/19 18:57 Urine Bilirubin Negative (Negative) 11/04/19 18:57 Urine Urobilinogen 0.2 EU/dL (Up TO 0.2) 11/04/19 18:57 Ur Leukocyte Esterase Negative (Negative) 11/04/19 18:57 Urine Glucose 500 mg/dL (Negative) H 11/04/19 18:57 Patient ABO/Rh Cancelled 11/04/19 19:06
[2019-11-05 12:23] LABS: Abs Immature Grans 0.02 k/cumm (0.0-0.09); Absolute Eosinophil Count 0.01 k/cumm (0.0-0.7); Absolute Lymphocyte Count 0.32 k/cumm (1.2-3.4); Absolute Monocyte Count 0.98 k/cumm (0.11-0.7); Absolute Neutrophil Count 6.88 k/cumm (1.2-6.7); Eosinophils % 0.1; HCT 32.9 % (40.0-50.0); HGB 10.5 g/dL (13.5-17.5); Immature Grans % 0.2 %; Lymphocytes % 3.9; Mean Corp. HGB Concentration 31.9 g/dL (32.0-36.0); Mean Corpuscular Hemoglobin 29.2 pg (27.0-33.0); Mean Corpuscular Volume 91.6 fL (80-95); Mean Platelet Volume 8.8 fL (8.0-11.0); Monocytes % 11.9; Neutrophils % 83.9; Platelet Count 130 x1000/uL (130-400); RBC 3.59 m/cumm (4.50-6.00); RBC Distribution Width 15.2 % (11.8-14.1); White Blood Cell Count 8.21 k/cumm (4.4-10.8)
[2019-11-05 12:32] LABS: INR 1.1 (0.9-1.1); Prothrombin Time 11.3 sec (9.3-11.0)
[2019-11-05 12:34] LABS: Ammonia 59 umol/L (11-32)
[2019-11-05 12:43] LABS: ALT 31 U/L (16-63); AST 38 U/L (15-37); Alkaline Phosphatase 73 U/L (46-116); Anion Gap 9.2 mmol/L (3-11); BUN 33 mg/dL (7-18); Bilirubin, Total 1.3 mg/dL (0.2-1.0); CO2 21.8 mmol/L (21.0-32.0); CREATININE 1.16 mg/dL (0.70-1.30); Calcium 8.6 mg/dL (8.5-10.1); Chloride 111 mmol/L (98-107); Glucose 154 mg/dL (74-106); Potassium 4.9 mmol/L (3.5-5.1); Sodium 142 mmol/L (136-145); Total Protein 6.4 g/dL (6.4-8.2)
[2019-11-05 12:49] LABS: GGT 28 U/L (15-85)
--- NOTE | 2019-11-05 13:00 | DI.RAD_ITS ---
EXAM: XR PORTABLE CHEST AP POST LINE CLINICAL HISTORY: Picc Line position change TECHNIQUE: 2D digital imaging was performed. COMPARISON: No exams were available for comparison FINDINGS: The PICC line has been pulled back and the tip now projects in the superior vena cava. The left-real ed chest catheter is unchanged in position. The the pneumothorax is not well not well seen but appea rs unchanged. Left upper rib fractures are noted. No new abnormalities are seen. IMPRESSION: Satisfactory position of PICC line.
[2019-11-05] MEDS: Bupivacaine 0.25% Pres-Free 30 ML VIAL (13:15)
[2019-11-05] MEDS: Bupivacaine LIPOSOME/PF 133 MG/10 ML VIAL IJ (13:15)
[2019-11-05] MEDS: Rifaximin 550 MG TAB PO ×2 (14:30→20:56)
--- NOTE | 2019-11-05 15:40 | PGE_ITS ---
Date of Service Date of service: 11/05/19 Time of Service: 15:40 Assessment and Plan Assessment and plan (1) CO2 narcosis: Status: Acute Assessment and plan: clinically improving w/ use of BIPAP and witholding of his narcotics (2) Pneumothorax: Status: Acute Assessment and plan: s/p chest tube. Defer to primary team rib block repeated by anesthesia Qualifiers: Pneumothorax type: traumatic Encounter type: initial encounter Qualified Code(s): S27.0XXA - Traumatic pneumothorax, initial encounter (3) Fracture of rib of left side: Status: Acute Assessment and plan: Non-operative management as above. Encourage IS once able to cooperate. Qualifiers: Encounter type: initial encounter Rib fracture type: multiple ribs Fracture type: closed Qualified Code(s): S22.42XA - Multiple fractures of ribs, left side, initial encounter for closed fracture (4) Cirrhosis: Status: Chronic Assessment and plan: Due to EtOH abuse in the past as well as hepatitis C. S/p TIPS procedure. Has a h/o esophageal varices/bleeding, hepatic encephalopathy. Follows with [facility] [place] [facility] [place]. Avoid NSAIDs. continue Rifaxamin and lactulose Qualifiers: Hepatic cirrhosis type: unspecified hepatic cirrhosis Ascites presence: without ascites Qualified Code(s): K74.60 - Unspecified cirrhosis of liver (5) Fracture of left clavicle: Status: Acute Assessment and plan: Non-operative management, per ortho. Continue sling for comfort Qualifiers: Encounter type: initial encounter Clavicle location: unspecified part of clavicle Fracture type: closed Fracture alignment: nondisplaced Qualified Code(s): S42.002A - Fracture of unspecified part of left clavicle, initial encounter for closed fracture (6) Hepatic encephalopathy: Status: Acute Assessment and plan: Agree with intensive lactulose regimen. Continue rifaxamin (7) Drug abuse: Status: Suspected Assessment and plan: use minimum amount of narcotics necessary to control his pain. Subjective Subjective Interval history since last seen: Patient was very obtunded this morning secondary to CO2 narcosis due to narcotic oversedation. See Dr. Jones's admission note as well as Dr. Renteria's medical consultation from last night. Patient has remained on BiPAP overnight. Narcotics were withheld throughout the day and anesthesia has since done a nerve block of the subcostal nerves on his left side to treat his rib fracture pain. Since that time the patient is now woken up. Patient was very agitated after awakening and a staff stat alert was called. Adelaide from respiratory therapy was able to de-escalate the situation by speaking with the patient calmly and we were able to successfully avoid re- sedating him. Patient has known cirrhosis and previous history of hepatic encephalopathy. His ammonia level went up overnight from 42-59 which I suspect is secondary to his somnolence preventing him from taking his rifaximin and lactulose. At this time we will continue supportive care with use of BiPAP as needed whenever he is asleep. We will use topical lidocaine patches along with the subcostal nerve blocks. Now that he is awake and alert and responsive patient should be able to safely take his rifaximin and his lactulose. Further use of sedatives or benzodiazepines should be avoided as much as possible. We can resume very low-dose PRN dosing with fentanyl for breakthrough pain. Because of his cirrhosis and a history of varices he is not a candidate for any NSAIDs. Exam Narrative Exam Narrative: Patient was agitated but able to calm down after talking w/ RT and being able to call his AA sponsor. He is tearful and scared. Lungs: w/ diminished breath sounds in left lung base; right side is clear Heart is RRR, no murmur chest wall w/ bruising over left anterolateral chest. dressing and chest tube in place over left upper anterior chest. bruising over right arm. Abdomen soft and nontender, no palpable masses Neuro: he has asterixis, he is alert and not hallucinating; he is coherent but tearful. He is calmer after talking w/ his sponsor and Adelaide from R.T. Objective Objective Clinical Data: Abnormal lab results 11/04/19 11/04/19 11/04/19 Range/Units 18:57 19:37 19:37 RBC (4.50-6.00) m/cumm Hgb (13.5-17.5) g/dL Hct (40.0-50.0) % MCHC (32.0-36.0) g/dL RDW (11.8-14.1) % Plt Count (130-400) x1000/uL Absolute Neutrophils (1.2-6.7) k/cumm Absolute Lymphocytes (1.2-3.4) k/cumm Absolute Monocytes (0.11-0.7) k/cumm PT (9.3-11.0) sec ABG pH (7.35-7.45) ABG pCO2 (34-47) mmHg ABG pO2 (83-108) mmHg ABG HCO3 (22-28) mmol/L ABG Total CO2 (22-29) mmol/L ABG O2 Saturation (94-98) % ABG Base Excess (-3-3) mmol/L Sodium 132 L (136-145) mmol/L Chloride (98-107) mmol/L Carbon Dioxide 19.7 L (21.0-32.0) mmol/L BUN 44 H (7-18) mg/dL Creatinine 1.78 H D (0.70-1.30) mg/dL Glucose 158 H (74-106) mg/dL Total Bilirubin 1.6 H (0.2-1.0) mg/dL AST 47 H (15-37) U/L Ammonia 42 H (11-32) umol/L Albumin (3.4-5.0) g/dL Urine Glucose 500 H (Negative) mg/dL 11/04/19 11/04/19 11/04/19 Range/Units 19:37 19:52 21:40 RBC 3.92 L (4.50-6.00) m/cumm Hgb 11.5 L (13.5-17.5) g/dL Hct 35.0 L (40.0-50.0) % MCHC (32.0-36.0) g/dL RDW 15.1 H (11.8-14.1) % Plt Count 118 L (130-400) x1000/uL Absolute Neutrophils (1.2-6.7) k/cumm Absolute Lymphocytes (1.2-3.4) k/cumm Absolute Monocytes (0.11-0.7) k/cumm PT (9.3-11.0) sec ABG pH 7.22 L 7.24 L (7.35-7.45) ABG pCO2 (34-47) mmHg ABG pO2 73 L 64 L (83-108) mmHg ABG HCO3 18 L 19 L (22-28) mmol/L ABG Total CO2 17 L 18 L (22-29) mmol/L ABG O2 Saturation 93 L 90 L (94-98) % ABG Base Excess -9.9 L -8.8 L (-3-3) mmol/L Sodium (136-145) mmol/L Chloride (98-107) mmol/L Carbon Dioxide (21.0-32.0) mmol/L BUN (7-18) mg/dL Creatinine (0.70-1.30) mg/dL Glucose (74-106) mg/dL Total Bilirubin (0.2-1.0) mg/dL AST (15-37) U/L Ammonia (11-32) umol/L Albumin (3.4-5.0) g/dL Urine Glucose (Negative) mg/dL 11/05/19 11/05/19 11/05/19 Range/Units 06:15 08:30 08:42 RBC (4.50-6.00) m/cumm Hgb (13.5-17.5) g/dL Hct (40.0-50.0) % MCHC (32.0-36.0) g/dL RDW (11.8-14.1) % Plt Count (130-400) x1000/uL Absolute Neutrophils (1.2-6.7) k/cumm Absolute Lymphocytes (1.2-3.4) k/cumm Absolute Monocytes (0.11-0.7) k/cumm PT (9.3-11.0) sec ABG pH 7.20 L (7.35-7.45) ABG pCO2 51 H (34-47) mmHg ABG pO2 183 H (83-108) mmHg ABG HCO3 20 L (22-28) mmol/L ABG Total CO2 (22-29) mmol/L ABG O2 Saturation > 99 H (94-98) % ABG Base Excess -8.4 L (-3-3) mmol/L Sodium (136-145) mmol/L Chloride 109 H (98-107) mmol/L Carbon Dioxide 20.8 L (21.0-32.0) mmol/L BUN 36 H (7-18) mg/dL Creatinine (0.70-1.30) mg/dL Glucose 117 H (74-106) mg/dL Total Bilirubin (0.2-1.0) mg/dL AST (15-37) U/L Ammonia 51 H (11-32) umol/L Albumin (3.4-5.0) g/dL Urine Glucose (Negative) mg/dL 11/05/19 11/05/19 11/05/19 Range/Units 11:10 12:10 12:10 RBC 3.59 L (4.50-6.00) m/cumm Hgb 10.5 L (13.5-17.5) g/dL Hct 32.9 L (40.0-50.0) % MCHC 31.9 L (32.0-36.0) g/dL RDW 15.2 H (11.8-14.1) % Plt Count (130-400) x1000/uL Absolute Neutrophils 6.88 H (1.2-6.7) k/cumm Absolute Lymphocytes 0.32 L (1.2-3.4) k/cumm Absolute Monocytes 0.98 H (0.11-0.7) k/cumm PT (9.3-11.0) sec ABG pH 7.23 L (7.35-7.45) ABG pCO2 48 H (34-47) mmHg ABG pO2 (83-108) mmHg ABG HCO3 20 L (22-28) mmol/L ABG Total CO2 19 L (22-29) mmol/L ABG O2 Saturation (94-98) % ABG Base Excess -7.8 L (-3-3) mmol/L Sodium (136-145) mmol/L Chloride 111 H (98-107) mmol/L Carbon Dioxide (21.0-32.0) mmol/L BUN 33 H (7-18) mg/dL Creatinine (0.70-1.30) mg/dL Glucose 154 H (74-106) mg/dL Total Bilirubin 1.3 H (0.2-1.0) mg/dL AST 38 H (15-37) U/L Ammonia (11-32) umol/L Albumin 3.0 L (3.4-5.0) g/dL Urine Glucose (Negative) mg/dL 11/05/19 11/05/19 Range/Units 12:10 12:10 RBC (4.50-6.00) m/cumm Hgb (13.5-17.5) g/dL Hct (40.0-50.0) % MCHC (32.0-36.0) g/dL RDW (11.8-14.1) % Plt Count (130-400) x1000/uL Absolute Neutrophils (1.2-6.7) k/cumm Absolute Lymphocytes (1.2-3.4) k/cumm Absolute Monocytes (0.11-0.7) k/cumm PT 11.3 H (9.3-11.0) sec ABG pH (7.35-7.45) ABG pCO2 (34-47) mmHg ABG pO2 (83-108) mmHg ABG HCO3 (22-28) mmol/L ABG Total CO2 (22-29) mmol/L ABG O2 Saturation (94-98) % ABG Base Excess (-3-3) mmol/L Sodium (136-145) mmol/L Chloride (98-107) mmol/L Carbon Dioxide (21.0-32.0) mmol/L BUN (7-18) mg/dL Creatinine (0.70-1.30) mg/dL Glucose (74-106) mg/dL Total Bilirubin (0.2-1.0) mg/dL AST (15-37) U/L Ammonia 59 H (11-32) umol/L Albumin (3.4-5.0) g/dL Urine Glucose (Negative) mg/dL Vital Signs Temperature 37.0 C 11/05/19 15:30 Temperature Source Temporal Artery Scan 11/05/19 15:30 Pulse 99 H 11/05/19 14:31 Pulse Rhythm Regular 11/04/19 16:26 Pulse 100 H 11/05/19 14:31 Respiratory Rate 17 11/05/19 15:30 Respiratory Effort 11/05/19 13:00 Respiratory Depth Normal 11/05/19 13:00 Respiratory Pattern Normal 11/05/19 13:00 Blood Pressure 118/84 11/05/19 14:31 Blood Pressure Mean 91 11/05/19 14:31 Blood Pressure Position Supine 11/05/19 13:00 Pulse Oximetry 96 11/05/19 15:30 Oxygen Delivery Method Nasal Cannula 11/05/19 15:30 Oxygen Flow Rate 5 11/05/19 15:30 Fraction of Inspired Oxygen (FIO2) 35 11/05/19 13:00 Pain Level 2 11/05/19 04:03 Intake & Output 11/04/19 11/05/19 11/05/19 23:59 11:59 23:59 Intake Total 4000 / 4000 0 / 0 Output Total 800 / 1000 960 / 1020 60 / 1020 Balance 3200 / 3000 -960 / -1020 -60 / -1020 Weight 97.522 kg 104.8 kg Intake: IV 4000 / 4000 0 / 0 Output: Chest Tube Drainage 250 / 450 160 / 220 60 / 220 Urine 550 / 550 800 / 800 Other: Urine Color Light Treva Yellow Urine Appearance Clear Clear Urine Odor None None Comment Rosario intact and draining clear straw colored urine. Stool Occult Blood Negative Stool Size Moderate Stool Characteristics Soft Liquid Brown Voiding Methods Urinal Laboratory Results WBC 8.21 k/cumm (4.4-10.8) 11/05/19 12:10 RBC 3.59 m/cumm (4.50-6.00) L 11/05/19 12:10 Hgb 10.5 g/dL (13.5-17.5) L 11/05/19 12:10 Hct 32.9 % (40.0-50.0) L 11/05/19 12:10 MCV 91.6 fL (80-95) 11/05/19 12:10 MCH 29.2 pg (27.0-33.0) 11/05/19 12:10 MCHC 31.9 g/dL (32.0-36.0) L 11/05/19 12:10 RDW 15.2 % (11.8-14.1) H 11/05/19 12:10 Plt Count 130 x1000/uL (130-400) 11/05/19 12:10 MPV 8.8 fL (8.0-11.0) 11/05/19 12:10 Immature Gran % 0.2 % 11/05/19 12:10 Neutrophils % 83.9 11/05/19 12:10 Lymphocytes % 3.9 11/05/19 12:10 Monocytes % 11.9 11/05/19 12:10 Eosinophils % 0.1 11/05/19 12:10 Basophils % 0.0 11/05/19 12:10 Absolute Neutrophils 6.88 k/cumm (1.2-6.7) H 11/05/19 12:10 Absolute Lymphocytes 0.32 k/cumm (1.2-3.4) L 11/05/19 12:10 Absolute Monocytes 0.98 k/cumm (0.11-0.7) H 11/05/19 12:10 Absolute Eosinophils 0.01 k/cumm (0.0-0.7) 11/05/19 12:10 Absolute Basophils 0.00 k/cumm (0.0-0.2) 11/05/19 12:10 PT 11.3 sec (9.3-11.0) H 11/05/19 12:10 INR 1.1 (0.9-1.1) 11/05/19 12:10 ABG Sample Site Left radial 11/05/19 11:10 ABG pH 7.23 (7.35-7.45) L 11/05/19 11:10 ABG pCO2 48 mmHg (34-47) H 11/05/19 11:10 ABG pO2 89 mmHg (83-108) 11/05/19 11:10 ABG HCO3 20 mmol/L (22-28) L 11/05/19 11:10 ABG Total CO2 19 mmol/L (22-29) L 11/05/19 11:10 ABG O2 Saturation 97 % (94-98) 11/05/19 11:10 ABG Base Excess -7.8 mmol/L (-3-3) L 11/05/19 11:10 Oxygen Liter Flow Bipap 16/5 L 11/05/19 11:10 FiO2 35 % 11/05/19 11:10 Sodium 142 mmol/L (136-145) 11/05/19 12:10 Potassium 4.9 mmol/L (3.5-5.1) 11/05/19 12:10 Chloride 111 mmol/L (98-107) H 11/05/19 12:10 Carbon Dioxide 21.8 mmol/L (21.0-32.0) 11/05/19 12:10 Anion Gap 9.2 mmol/L (3-11) 11/05/19 12:10 BUN 33 mg/dL (7-18) H 11/05/19 12:10 Creatinine 1.16 mg/dL (0.70-1.30) 11/05/19 12:10 Estimated GFR/1.73 m2 >= 60.00 (mL/min/1.73m2) 11/05/19 12:10 Glucose 154 mg/dL (74-106) H 11/05/19 12:10 Calcium 8.6 mg/dL (8.5-10.1) 11/05/19 12:10 Total Bilirubin 1.3 mg/dL (0.2-1.0) H 11/05/19 12:10 GGT 28 U/L (15-85) 11/05/19 12:10 AST 38 U/L (15-37) H 11/05/19 12:10 ALT 31 U/L (16-63) 11/05/19 12:10 Alkaline Phosphatase 73 U/L (46-116) 11/05/19 12:10 Ammonia 59 umol/L (11-32) H 11/05/19 12:10 Total Protein 6.4 g/dL (6.4-8.2) 11/05/19 12:10 Albumin 3.0 g/dL (3.4-5.0) L 11/05/19 12:10 Urine Color Treva (Yellow) 11/04/19 18:57 Urine Clarity Clear (Clear) 11/04/19 18:57 Urine pH 5.0 (5-8) 11/04/19 18:57 Ur Specific [place] 1.025 (1.005-1.025) 11/04/19 18:57 Urine Protein Negative mg/dL (Negative) 11/04/19 18:57 Urine Ketones Negative mg/dL (Negative) 11/04/19 18:57 Urine Blood Negative (Negative) 11/04/19 18:57 Urine Nitrite Negative (Negative) 11/04/19 18:57 Urine Bilirubin Negative (Negative) 11/04/19 18:57 Urine Urobilinogen 0.2 EU/dL (Up TO 0.2) 11/04/19 18:57 Ur Leukocyte Esterase Negative (Negative) 11/04/19 18:57 Urine Glucose 500 mg/dL (Negative) H 11/04/19 18:57 Patient ABO/Rh Cancelled 11/04/19 19:06
[2019-11-05] MEDS: FentaNYL/ROPIvacaine 2 mcg/ml and 0.1% 200 ML CADD Cassette EP (19:54)
[2019-11-05] MEDS: QUEtiapine 25 MG TAB PO (21:11)
[2019-11-05] MEDS: Gabapentin 300 MG CAP PO (21:11)
[2019-11-05] MEDS: Normal Saline 1,000 ML 100 ML IV (21:20)
--- NOTE | 2019-11-05 21:45 | DI.RAD_ITS ---
EXAM: XR PORTABLE CHEST AP CLINICAL HISTORY: dislodged chest tube TECHNIQUE: 2D digital imaging was performed. COMPARISON: CR XR PORTABLE CHEST AP POST LINE from 11/05/2019 FINDINGS: Left-sided chest tube is unchanged in position. The left pneumothorax is no longer visible. The tono gs are not well inflated. Increased densities are again noted at the left lung base. The PICC line is unchanged in position with tip projecting in the expected location of the SVC. IMPRESSION: Limited exam. No visible pneumothorax. Stable left basilar densities.
[2019-11-05 22:12] LABS: Ammonia 16 umol/L (11-32)
--- NOTE | 2019-11-05 22:31 | DI.VRAD_ITS ---
Addendum created by Vinicius Kelly DO on 11/05/2019 10:42:37 PM EDT THIS REPORT CONTAINS FINDINGS THAT MAY BE CRITICAL TO PATIENT CARE. The findings were verbally communicated via telephone conference with Dr. Yusuf, 11/05/2019 10:42 PM EDT. The findings were acknowledged and understood. Initial report created on 11/05/2019 10:31:05 PM EDT PROCEDURE INFORMATION: Exam: XR Chest, 1 View Exam date and time: 11/05/2019 10:08 PM Age: 64 years old Clinical indication: Device placement; Patient HX: Dislodged chest tube TECHNIQUE: Imaging protocol: XR of the chest Views: 1 view. COMPARISON: CR XR PORTABLE CHEST AP POST LINE 11/05/2019 1:15 PM FINDINGS: Tubes, catheters and devices: Right PIC catheter followed to superior cavoatrial junction. Small bore catheter consistent with chest tube projects over left mid hemithorax. Vascular or biliary stent is again demonstrated overlying right upper quadrant. Curvilinear radiopacity now overlies medial aspect of right hemithorax with superior aspects lying outside the thorax. It cannot be determined if this lies within or outside the body. Lungs: No parenchymal consolidation. Scarring or subsegmental atelectasis in left lung base Pleural space: Unremarkable. No pleural effusion. Minute left pneumothorax cannot be excluded. Heart/Mediastinum: Unremarkable. No cardiomegaly. Heart top normal in size. Bones/joints: Multiple left rib fractures. Degenerative changes. IMPRESSION: 1. Earlier radiopacity consistent with small bore chest tube overlies left hemithorax. Cannot be determined which portion of the tube lies in or outside the body. 2. Small left pneumothorax cannot be excluded. 3. Curvilinear radiopacity now overlies right hemithorax. It cannot be determined if this lies within or outside the body. Dictated and Authenticated by: Vinicius Kelly MD. Ordering:ELIZABETH Guo MD
[2019-11-05 22:34] LABS: HCT 27.6 % (40.0-50.0); HGB 8.7 g/dL (13.5-17.5); Mean Corp. HGB Concentration 31.5 g/dL (32.0-36.0); Mean Corpuscular Hemoglobin 29.1 pg (27.0-33.0); Mean Corpuscular Volume 92.3 fL (80-95); Platelet Count 89 x1000/uL (130-400); RBC 2.99 m/cumm (4.50-6.00); RBC Distribution Width 15.1 % (11.8-14.1); White Blood Cell Count 4.25 k/cumm (4.4-10.8)
[2019-11-05 22:38] LABS: BE -6.9 mmol/L (-3-3); HCO3 19 mmol/L (22-28); pCO2 37 mmHg (34-47); pH 7.32 (7.35-7.45); pO2 79 mmHg (83-108); sO2 97 % (94-98); tCO2 18 mmol/L (22-29)
[2019-11-05 22:40] LABS: FIO2 24 %; Site Right Radial
[2019-11-05] MEDS: Haloperidol 5 MG/ML VIAL IM/IV (22:45)
--- NOTE | 2019-11-05 23:37 | W.PM.PROGNOT ---
Date of Service Date of service: 11/05/19 Time of Service: 23:37 Assessment and Plan Assessment and plan (1) Agitation requiring sedation protocol: Status: Acute Assessment and plan: d/w pharmacy/Rn supervisor benzene refining/ Dr. Burch and anesthesia no signs of PTX or acute bleeding. liver function appears to be stalble. No signs of acute brain injury- pupils equal and reactive. WIll start a presidex drip for agitation. He does not do well w/ narcotics and the ativan he seemed to metabolize very quickly. we will start w/ a low dose bolus and see if we can get him more comfortable on BiPAP over night. Continue to [facility] for bleeding and liver failure. 2 hrs spent in critical care time w pt tonight. (2) Red blood cell antibody positive with compatible PRBC difficult to obtain: Status: Acute (3) CO2 narcosis: Status: Acute (4) Drug abuse: Status: Suspected (5) Pneumothorax: Status: Acute Qualifiers: Pneumothorax type: traumatic Encounter type: initial encounter Qualified Code(s): S27.0XXA - Traumatic pneumothorax, initial encounter (6) Fracture of left clavicle: Status: Acute Qualifiers: Encounter type: initial encounter Clavicle location: unspecified part of clavicle Fracture type: closed Fracture alignment: nondisplaced Qualified Code(s): S42.002A - Fracture of unspecified part of left clavicle, initial encounter for closed fracture (7) Fracture of rib of left side: Status: Acute Qualifiers: Encounter type: initial encounter Rib fracture type: multiple ribs Fracture type: closed Qualified Code(s): S22.42XA - Multiple fractures of ribs, left side, initial encounter for closed fracture (8) Hepatic encephalopathy: Status: Acute (9) Cirrhosis: Status: Chronic Qualifiers: Hepatic cirrhosis type: unspecified hepatic cirrhosis Ascites presence: without ascites Qualified Code(s): K74.60 - Unspecified cirrhosis of liver (10) 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 Pt b/c very combative adn was pulling out PTX catheter. PCR was done and shows no PTX and cath in place. There is no signif bleeding on the CXR. His output was 700cc (was 620cc at 5:30om today) VSS no tachycardia or hypotension. sats are around 94%. He did receive a 1mg of ativan at 9:30 and he was sedated when I arrived. Pt was assessed. The ativan appeared to wear off and pt did receive 5mg haldol at 10:45pm. reepat labs were done and cxr . I did review the case w/ Dr. Burch as well. Pt is back on BiPAP- 16/4 and 30% FiO2. Blood case was done- see [facility]. He has the thoracic epidural in place and was not requiring any additional narcotics for pain control. He had had x3 BM from the lactulose. ammonia is 16. resutsl of CBC noted. on exam- CPAP mask is in place and making good seal Chest catheter was re-evaluated - connections are all tite and is in good position. It is re dressed. L: CTA b/l. although he has signif abdominal breathing NSR Abdom: good BS. less distended than on am shift. Pt appears to be just very agitated. We did try haldol as well. I also d/w case w/ anethesia. He did not think that he was having a reaction to or toxic from the bupivicaine. Objective Objective Clinical Data: Abnormal lab results 11/05/19 11/05/19 11/05/19 Range/Units 06:15 08:30 08:42 WBC (4.4-10.8) k/cumm RBC (4.50-6.00) m/cumm Hgb (13.5-17.5) g/dL Hct (40.0-50.0) % MCHC (32.0-36.0) g/dL RDW (11.8-14.1) % Plt Count (130-400) x1000/uL Absolute Neutrophils (1.2-6.7) k/cumm Absolute Lymphocytes (1.2-3.4) k/cumm Absolute Monocytes (0.11-0.7) k/cumm PT (9.3-11.0) sec ABG pH 7.20 L (7.35-7.45) ABG pCO2 51 H (34-47) mmHg ABG pO2 183 H (83-108) mmHg ABG HCO3 20 L (22-28) mmol/L ABG Total CO2 (22-29) mmol/L ABG O2 Saturation > 99 H (94-98) % ABG Base Excess -8.4 L (-3-3) mmol/L Chloride 109 H (98-107) mmol/L Carbon Dioxide 20.8 L (21.0-32.0) mmol/L BUN 36 H (7-18) mg/dL Glucose 117 H (74-106) mg/dL Total Bilirubin (0.2-1.0) mg/dL AST (15-37) U/L Ammonia 51 H (11-32) umol/L Albumin (3.4-5.0) g/dL 11/05/19 11/05/19 11/05/19 Range/Units 11:10 12:10 12:10 WBC (4.4-10.8) k/cumm RBC 3.59 L (4.50-6.00) m/cumm Hgb 10.5 L (13.5-17.5) g/dL Hct 32.9 L (40.0-50.0) % MCHC 31.9 L (32.0-36.0) g/dL RDW 15.2 H (11.8-14.1) % Plt Count (130-400) x1000/uL Absolute Neutrophils 6.88 H (1.2-6.7) k/cumm Absolute Lymphocytes 0.32 L (1.2-3.4) k/cumm Absolute Monocytes 0.98 H (0.11-0.7) k/cumm PT (9.3-11.0) sec ABG pH 7.23 L (7.35-7.45) ABG pCO2 48 H (34-47) mmHg ABG pO2 (83-108) mmHg ABG HCO3 20 L (22-28) mmol/L ABG Total CO2 19 L (22-29) mmol/L ABG O2 Saturation (94-98) % ABG Base Excess -7.8 L (-3-3) mmol/L Chloride 111 H (98-107) mmol/L Carbon Dioxide (21.0-32.0) mmol/L BUN 33 H (7-18) mg/dL Glucose 154 H (74-106) mg/dL Total Bilirubin 1.3 H (0.2-1.0) mg/dL AST 38 H (15-37) U/L Ammonia (11-32) umol/L Albumin 3.0 L (3.4-5.0) g/dL 11/05/19 11/05/19 11/05/19 Range/Units 12:10 12:10 21:55 WBC 4.25 L D (4.4-10.8) k/cumm RBC 2.99 L (4.50-6.00) m/cumm Hgb 8.7 L (13.5-17.5) g/dL Hct 27.6 L (40.0-50.0) % MCHC 31.5 L (32.0-36.0) g/dL RDW 15.1 H (11.8-14.1) % Plt Count 89 L (130-400) x1000/uL Absolute Neutrophils (1.2-6.7) k/cumm Absolute Lymphocytes (1.2-3.4) k/cumm Absolute Monocytes (0.11-0.7) k/cumm PT 11.3 H (9.3-11.0) sec ABG pH (7.35-7.45) ABG pCO2 (34-47) mmHg ABG pO2 (83-108) mmHg ABG HCO3 (22-28) mmol/L ABG Total CO2 (22-29) mmol/L ABG O2 Saturation (94-98) % ABG Base Excess (-3-3) mmol/L Chloride (98-107) mmol/L Carbon Dioxide (21.0-32.0) mmol/L BUN (7-18) mg/dL Glucose (74-106) mg/dL Total Bilirubin (0.2-1.0) mg/dL AST (15-37) U/L Ammonia 59 H (11-32) umol/L Albumin (3.4-5.0) g/dL 11/05/19 Range/Units 22:40 WBC (4.4-10.8) k/cumm RBC (4.50-6.00) m/cumm Hgb (13.5-17.5) g/dL Hct (40.0-50.0) % MCHC (32.0-36.0) g/dL RDW (11.8-14.1) % Plt Count (130-400) x1000/uL Absolute Neutrophils (1.2-6.7) k/cumm Absolute Lymphocytes (1.2-3.4) k/cumm Absolute Monocytes (0.11-0.7) k/cumm PT (9.3-11.0) sec ABG pH 7.32 L (7.35-7.45) ABG pCO2 (34-47) mmHg ABG pO2 79 L (83-108) mmHg ABG HCO3 19 L (22-28) mmol/L ABG Total CO2 18 L (22-29) mmol/L ABG O2 Saturation (94-98) % ABG Base Excess -6.9 L (-3-3) mmol/L Chloride (98-107) mmol/L Carbon Dioxide (21.0-32.0) mmol/L BUN (7-18) mg/dL Glucose (74-106) mg/dL Total Bilirubin (0.2-1.0) mg/dL AST (15-37) U/L Ammonia (11-32) umol/L Albumin (3.4-5.0) g/dL Vital Signs Temperature 37.0 C 11/05/19 19:49 Temperature Source Temporal Artery Scan 11/05/19 19:49 Pulse 90 11/05/19 22:46 Pulse Rhythm Regular 11/04/19 16:26 Pulse 99 H 11/05/19 19:40 Respiratory Rate 21 11/05/19 22:46 Respiratory Effort 11/05/19 19:49 Respiratory Depth Shallow 11/05/19 19:49 Respiratory Pattern Normal 11/05/19 19:49 Blood Pressure 120/61 11/05/19 19:49 Blood Pressure Mean 80 11/05/19 19:49 Blood Pressure Position Supine 11/05/19 19:49 Pulse Oximetry 96 11/05/19 22:46 Respiratory End-tidal CO2 29 11/05/19 19:10 Oxygen Delivery Method Nasal Cannula 11/05/19 19:49 Oxygen Flow Rate 2 11/05/19 19:49 Fraction of Inspired Oxygen (FIO2) 34 11/05/19 22:46 Pain Level 5 11/05/19 19:49 Intake & Output 11/04/19 11/05/19 11/05/19 23:59 11:59 23:59 Intake Total 4000 / 4000 0 / 500 500 / 500 Output Total 800 / 1000 960 / 1570 610 / 1570 Balance 3200 / 3000 -960 / -1070 -110 / -1070 Weight 97.522 kg 104.8 kg Intake: IV 4000 / 4000 0 / 0 0 / 0 Oral 500 / 500 Output: Chest Tube Drainage 250 / 450 160 / 320 160 / 320 Urine 550 / 550 800 / 1250 450 / 1250 Other: Urine Color Light Treva Yellow Straw Urine Appearance Clear Clear Clear Urine Odor None None Comment Rosario intact and draining clear straw colored urine. Rosario catheter intact and draining clear straw colored urine. Stool Occult Blood Negative Stool Size Large Stool Characteristics Brown Voiding Methods Urinal Laboratory Results WBC Cancelled 11/05/19 22:46 RBC Cancelled 11/05/19 22:46 Hgb Cancelled 11/05/19 22:46 Hct Cancelled 11/05/19 22:46 MCV Cancelled 11/05/19 22:46 MCH Cancelled 11/05/19 22:46 MCHC Cancelled 11/05/19 22:46 RDW Cancelled 11/05/19 22:46 Plt Count Cancelled 11/05/19 22:46 MPV Cancelled 11/05/19 22:46 Immature Gran % 0.2 % 11/05/19 12:10 Neutrophils % 83.9 11/05/19 12:10 Lymphocytes % 3.9 11/05/19 12:10 Monocytes % 11.9 11/05/19 12:10 Eosinophils % 0.1 11/05/19 12:10 Basophils % 0.0 11/05/19 12:10 Absolute Neutrophils 6.88 k/cumm (1.2-6.7) H 11/05/19 12:10 Absolute Lymphocytes 0.32 k/cumm (1.2-3.4) L 11/05/19 12:10 Absolute Monocytes 0.98 k/cumm (0.11-0.7) H 11/05/19 12:10 Absolute Eosinophils 0.01 k/cumm (0.0-0.7) 11/05/19 12:10 Absolute Basophils 0.00 k/cumm (0.0-0.2) 11/05/19 12:10 PT 11.3 sec (9.3-11.0) H 11/05/19 12:10 INR 1.1 (0.9-1.1) 11/05/19 12:10 ABG Sample Site Right radial 11/05/19 22:40 ABG pH 7.32 (7.35-7.45) L 11/05/19 22:40 ABG pCO2 37 mmHg (34-47) 11/05/19 22:40 ABG pO2 79 mmHg (83-108) L 11/05/19 22:40 ABG HCO3 19 mmol/L (22-28) L 11/05/19 22:40 ABG Total CO2 18 mmol/L (22-29) L 11/05/19 22:40 ABG O2 Saturation 97 % (94-98) 11/05/19 22:40 ABG Base Excess -6.9 mmol/L (-3-3) L 11/05/19 22:40 Oxygen Liter Flow 15/3 L 11/05/19 22:40 FiO2 24 % 11/05/19 22:40 Sodium 142 mmol/L (136-145) 11/05/19 12:10 Potassium 4.9 mmol/L (3.5-5.1) 11/05/19 12:10 Chloride 111 mmol/L (98-107) H 11/05/19 12:10 Carbon Dioxide 21.8 mmol/L (21.0-32.0) 11/05/19 12:10 Anion Gap 9.2 mmol/L (3-11) 11/05/19 12:10 BUN 33 mg/dL (7-18) H 11/05/19 12:10 Creatinine 1.16 mg/dL (0.70-1.30) 11/05/19 12:10 Estimated GFR/1.73 m2 >= 60.00 (mL/min/1.73m2) 11/05/19 12:10 Glucose 154 mg/dL (74-106) H 11/05/19 12:10 Calcium 8.6 mg/dL (8.5-10.1) 11/05/19 12:10 Total Bilirubin 1.3 mg/dL (0.2-1.0) H 11/05/19 12:10 GGT 28 U/L (15-85) 11/05/19 12:10 AST 38 U/L (15-37) H 11/05/19 12:10 ALT 31 U/L (16-63) 11/05/19 12:10 Alkaline Phosphatase 73 U/L (46-116) 11/05/19 12:10 Ammonia Cancelled 11/05/19 22:46 Total Protein 6.4 g/dL (6.4-8.2) 11/05/19 12:10 Albumin 3.0 g/dL (3.4-5.0) L 11/05/19 12:10 Urine Color Treva (Yellow) 11/04/19 18:57 Urine Clarity Clear (Clear) 11/04/19 18:57 Urine pH 5.0 (5-8) 11/04/19 18:57 Ur Specific [place] 1.025 (1.005-1.025) 11/04/19 18:57 Urine Protein Negative mg/dL (Negative) 11/04/19 18:57 Urine Ketones Negative mg/dL (Negative) 11/04/19 18:57 Urine Blood Negative (Negative) 11/04/19 18:57 Urine Nitrite Negative (Negative) 11/04/19 18:57 Urine Bilirubin Negative (Negative) 11/04/19 18:57 Urine Urobilinogen 0.2 EU/dL (Up TO 0.2) 11/04/19 18:57 Ur Leukocyte Esterase Negative (Negative) 11/04/19 18:57 Urine Glucose 500 mg/dL (Negative) H 11/04/19 18:57 Patient ABO/Rh Cancelled 11/04/19 19:06
[2019-11-05] MEDS: LORazepam 2 MG/ML VIAL 1 MG IVP (23:59)
[2019-11-06] VITALS (176 sets, daily range): BP systolic 72–178; BP diastolic 35–97; PULSE 49–144; RESP 9–31; TEMP 36.8–37.1; O2SAT 86–100
[2019-11-06] MEDS: Normal Saline 250 ML 500 ML IV (03:57)
--- NOTE | 2019-11-06 04:02 | NUR.NOTE ---
At 2119 pt began to get restless and agitated attempting multiple times to pull off lead and tubes. This scientific writer attempted to deescalate and redirect patient when patient became more beligerant and began pulling at his chest tube accusing this scientific writer and accompanying staff of trying to kill him. Pt would not let go of his chest tube and continued to yell and thrash in bed. A Code Salas was called at 2126, notified, Orders for UE soft restraints and 1 mg of lorazepam and 5 mg of Haldol were given. Dr. Yusuf paged when bubbling in chest tube was noticed. Stat CXR, Ammonia level and CBC orders were placed. Providers to bedside to assess the patient at 2144
[2019-11-06 05:19] LABS: Abs Immature Grans 0.01 k/cumm (0.0-0.09); Absolute Eosinophil Count 0.05 k/cumm (0.0-0.7); Absolute Lymphocyte Count 0.51 k/cumm (1.2-3.4); Absolute Monocyte Count 0.45 k/cumm (0.11-0.7); Absolute Neutrophil Count 2.75 k/cumm (1.2-6.7); Eosinophils % 1.3; HCT 26.3 % (40.0-50.0); HGB 8.5 g/dL (13.5-17.5); Immature Grans % 0.3 %; Lymphocytes % 13.5; Mean Corp. HGB Concentration 32.3 g/dL (32.0-36.0); Mean Corpuscular Hemoglobin 29.8 pg (27.0-33.0); Mean Corpuscular Volume 92.3 fL (80-95); Mean Platelet Volume 8.3 fL (8.0-11.0); Monocytes % 11.9; RBC 2.85 m/cumm (4.50-6.00); RBC Distribution Width 15.2 % (11.8-14.1); White Blood Cell Count 3.77 k/cumm (4.4-10.8)
--- NOTE | 2019-11-06 05:26 | PDOC.ANES ---
Date of service: 11/06/19 Time of Service: 04:37 Anesthesia Note Report Anesthesia Note: Paged in regards to potentially pausing epidural related to hypotension. Alonzo was started on a dexmed infusion last night around midnight (0.25 mcg/kg bolus and 0.4mcg/kg/hr rate). He had good control of his agitation with the dexmed on, but eventually he became hypotensive. he also was less arousable as well. He did get a 500 mL crystalloid bolus with no improvement, but more hypotension per RN. On my arrival Alonzo was in bed. He would arouse to look at you with pressure to his left clavicle, but was not responding verbally. Epidural was shut off/held at 0500 and a norepi infusion was hung (5 mcg/min) with improvement in his MAP to 67mmhg. Discussed with RN plan to leave epidural on hold to see if BP improves. Information passed on to oncoming anesthesia.
--- NOTE | 2019-11-06 05:28 | NUR.NOTE ---
Anesthesia at bedside to assess patient. Norepi gtt started,
[2019-11-06 05:34] LABS: Platelet Count 84 x1000/uL (130-400)
[2019-11-06 05:40] LABS: Ammonia 47 umol/L (11-32)
[2019-11-06 05:42] LABS: ALT 22 U/L (16-63); AST 23 U/L (15-37); Albumin 2.2 g/dL (3.4-5.0); Alkaline Phosphatase 55 U/L (46-116); Anion Gap 6.6 mmol/L (3-11); BUN 32 mg/dL (7-18); Bilirubin, Total 0.9 mg/dL (0.2-1.0); CO2 23.4 mmol/L (21.0-32.0); CREATININE 1.14 mg/dL (0.70-1.30); Calcium 7.8 mg/dL (8.5-10.1); Chloride 112 mmol/L (98-107); Glucose 131 mg/dL (74-106); Potassium 4.1 mmol/L (3.5-5.1); Sodium 142 mmol/L (136-145)
[2019-11-06 06:02] LABS: INR 1.2 (0.9-1.1); Prothrombin Time 11.6 sec (9.3-11.0)
--- NOTE | 2019-11-06 07:02 | DI.RAD_ITS ---
EXAM: XR PORTABLE CHEST AP CLINICAL HISTORY: ptx TECHNIQUE: 2D digital imaging was performed. COMPARISON: CR,XR XR PORTABLE CHEST AP from 11/05/2019 FINDINGS: The heart size is within normal limits. The left-sided catheter is again noted, unchanged in positio n. Increased densities are again noted at the left lung base, posterior to the heart which could rep resent atelectasis versus infiltrate. This does not appear significantly changed. A pneumothorax is not visible on the current exam. Left rib fractures are again noted. There is no change in the pos ition of the PICC line. IMPRESSION: Left-sided chest tube. No visible pneumothorax. Stable left basilar densities.
--- NOTE | 2019-11-06 07:27 | DI.VRAD_ITS ---
PROCEDURE INFORMATION: Exam: XR Chest, 1 View Exam date and time: 11/06/2019 12:01 AM Age: 64 years old Clinical indication: Device placement; Chest tube; Patient HX: Ptx TECHNIQUE: Imaging protocol: XR of the chest Views: 1 view. COMPARISON: XR PORTABLE CHEST AP 11/05/2019 9:59 PM FINDINGS: Tubes, catheters and devices: Left-sided chest tube in place.. Right-sided PICC line in place tip in SVC Lungs: Patchy opacity in the left lung likely reflect atelectasis, pneumonia not excluded in the correct clinical setting. Pleural space: Unremarkable. No pleural effusion. No pneumothorax. Heart/Mediastinum: Unremarkable. No cardiomegaly. Bones/joints: Unremarkable. IMPRESSION: 1. Left-sided chest tube in place.. 2. Patchy opacity in the left lung likely reflect atelectasis, pneumonia not excluded in the correct clinical setting. Dictated and Authenticated by: Man Matute MD. Ordering:ELIZABETH Guo MD
--- NOTE | 2019-11-06 08:13 | PGE_ITS ---
Date of Service Date of service: 11/06/19 Time of Service: 07:00 Assessment and Plan Assessment and plan (1) Hepatic encephalopathy: Status: Acute Assessment and plan: Ammonia levels down. Had one large BM yesterday. Refused his Lactulose last night. We will try to wean him off the Precedex and hopefully wake him up enough to be able to give him his lactulose and rifampin (2) CO2 narcosis: Status: Acute Assessment and plan: Resolved with Cpap. Continue CPAP while sedated. Will try to remove if he wakes up a little today (3) Pneumothorax: Status: Acute Assessment and plan: Output is serous now He did have a drop in his HGB Will monitor. NO blood in his stool yesterday CT abdomen and pelvis from first admission was negative for bleeding Qualifiers: Pneumothorax type: traumatic Encounter type: initial encounter Qualified Code(s): S27.0XXA - Traumatic pneumothorax, initial encounter (4) Fracture of rib of left side: Status: Acute Assessment and plan: Doing well. Pain seems controlled. He is not tachycardic Epidural in place but turned off due to his hypotension. Will restart if his BP comes up and he is in pain Qualifiers: Encounter type: initial encounter Rib fracture type: multiple ribs Fracture type: closed Qualified Code(s): S22.42XA - Multiple fractures of ribs, left side, initial encounter for closed fracture (5) Fracture of left clavicle: Status: Acute Assessment and plan: stable Qualifiers: Encounter type: initial encounter Clavicle location: unspecified part of clavicle Fracture type: closed Fracture alignment: nondisplaced Qualified Code(s): S42.002A - Fracture of unspecified part of left clavicle, initial encounter for closed fracture (6) Cirrhosis: Status: Chronic Assessment and plan: Hep C adn ETOH abuse. GI felt it was more due to ETOH use. Pt states he is 14m sober. Qualifiers: Hepatic cirrhosis type: unspecified hepatic cirrhosis Ascites presence: without ascites Qualified Code(s): K74.60 - Unspecified cirrhosis of liver (7) Red blood cell antibody positive with compatible PRBC difficult to obtain: Status: Acute (8) Gallstones: Status: Acute Assessment and plan: No signs of cholecystitis. Abdomen is soft and non- tender (9) Left inguinal hernia: Status: Acute (10) Anemia: Status: Chronic Assessment and plan: A\\ Most likely multifactorial. No sigs of active bleeding P\\ Follow closely. Unfortunately the patient has antibodies so if he needs blood it will be difficult to find a match Qualifiers: Anemia type: unspecified type Qualified Code(s): D64.9 - Anemia, unspecified (11) Hx of caloric malnutrition: Status: Acute Assessment and plan: Unable to feed right now because of how sedated he is. TPN not a good idea due to his liver disease Hopefully will wake up a little today so he can take in some nutrition Albumin is low at 2.2 Subjective Subjective Interval history since last seen: Chart reviewed for last nights events Alonzo is very sedated on Presedex this morning. He will open his eyes. He was also started on fransisca last night for low BP's which could be due to the epidural or the precedex. It sounds like he had another episode last night like in the afternoon were he woke up and was disoriented. He was given some ativan and haldol. Exam [facility] Head: normocephalic and atraumatic Eyes Pupils: PERRL Resp Auscultation: clear to auscultation bilaterally Other: On CPAP Cardio Rate: regular rate Rhythm: regular rhythm GI Inspection: distended Palpation: soft and nontender Auscultation: normal bowel sounds Objective Objective Clinical Data: Abnormal lab results 11/05/19 11/05/19 11/05/19 Range/Units 08:30 08:42 11:10 WBC (4.4-10.8) k/cumm RBC (4.50-6.00) m/cumm Hgb (13.5-17.5) g/dL Hct (40.0-50.0) % MCHC (32.0-36.0) g/dL RDW (11.8-14.1) % Plt Count (130-400) x1000/uL Absolute Neutrophils (1.2-6.7) k/cumm Absolute Lymphocytes (1.2-3.4) k/cumm Absolute Monocytes (0.11-0.7) k/cumm PT (9.3-11.0) sec INR (0.9-1.1) ABG pH 7.20 L 7.23 L (7.35-7.45) ABG pCO2 51 H 48 H (34-47) mmHg ABG pO2 183 H (83-108) mmHg ABG HCO3 20 L 20 L (22-28) mmol/L ABG Total CO2 19 L (22-29) mmol/L ABG O2 Saturation > 99 H (94-98) % ABG Base Excess -8.4 L -7.8 L (-3-3) mmol/L Chloride (98-107) mmol/L BUN (7-18) mg/dL Glucose (74-106) mg/dL Calcium (8.5-10.1) mg/dL Total Bilirubin (0.2-1.0) mg/dL AST (15-37) U/L Ammonia 51 H (11-32) umol/L Total Protein (6.4-8.2) g/dL Albumin (3.4-5.0) g/dL 11/05/19 11/05/19 11/05/19 Range/Units 12:10 12:10 12:10 WBC (4.4-10.8) k/cumm RBC 3.59 L (4.50-6.00) m/cumm Hgb 10.5 L (13.5-17.5) g/dL Hct 32.9 L (40.0-50.0) % MCHC 31.9 L (32.0-36.0) g/dL RDW 15.2 H (11.8-14.1) % Plt Count (130-400) x1000/uL Absolute Neutrophils 6.88 H (1.2-6.7) k/cumm Absolute Lymphocytes 0.32 L (1.2-3.4) k/cumm Absolute Monocytes 0.98 H (0.11-0.7) k/cumm PT (9.3-11.0) sec INR (0.9-1.1) ABG pH (7.35-7.45) ABG pCO2 (34-47) mmHg ABG pO2 (83-108) mmHg ABG HCO3 (22-28) mmol/L ABG Total CO2 (22-29) mmol/L ABG O2 Saturation (94-98) % ABG Base Excess (-3-3) mmol/L Chloride 111 H (98-107) mmol/L BUN 33 H (7-18) mg/dL Glucose 154 H (74-106) mg/dL Calcium (8.5-10.1) mg/dL Total Bilirubin 1.3 H (0.2-1.0) mg/dL AST 38 H (15-37) U/L Ammonia 59 H (11-32) umol/L Total Protein (6.4-8.2) g/dL Albumin 3.0 L (3.4-5.0) g/dL 11/05/19 11/05/19 11/05/19 Range/Units 12:10 21:55 22:40 WBC 4.25 L D (4.4-10.8) k/cumm RBC 2.99 L (4.50-6.00) m/cumm Hgb 8.7 L (13.5-17.5) g/dL Hct 27.6 L (40.0-50.0) % MCHC 31.5 L (32.0-36.0) g/dL RDW 15.1 H (11.8-14.1) % Plt Count 89 L (130-400) x1000/uL Absolute Neutrophils (1.2-6.7) k/cumm Absolute Lymphocytes (1.2-3.4) k/cumm Absolute Monocytes (0.11-0.7) k/cumm PT 11.3 H (9.3-11.0) sec INR (0.9-1.1) ABG pH 7.32 L (7.35-7.45) ABG pCO2 (34-47) mmHg ABG pO2 79 L (83-108) mmHg ABG HCO3 19 L (22-28) mmol/L ABG Total CO2 18 L (22-29) mmol/L ABG O2 Saturation (94-98) % ABG Base Excess -6.9 L (-3-3) mmol/L Chloride (98-107) mmol/L BUN (7-18) mg/dL Glucose (74-106) mg/dL Calcium (8.5-10.1) mg/dL Total Bilirubin (0.2-1.0) mg/dL AST (15-37) U/L Ammonia (11-32) umol/L Total Protein (6.4-8.2) g/dL Albumin (3.4-5.0) g/dL 11/06/19 11/06/19 11/06/19 Range/Units 05:00 05:00 05:00 WBC 3.77 L (4.4-10.8) k/cumm RBC 2.85 L (4.50-6.00) m/cumm Hgb 8.5 L (13.5-17.5) g/dL Hct 26.3 L (40.0-50.0) % MCHC (32.0-36.0) g/dL RDW 15.2 H (11.8-14.1) % Plt Count 84 L (130-400) x1000/uL Absolute Neutrophils (1.2-6.7) k/cumm Absolute Lymphocytes 0.51 L (1.2-3.4) k/cumm Absolute Monocytes (0.11-0.7) k/cumm PT (9.3-11.0) sec INR (0.9-1.1) ABG pH (7.35-7.45) ABG pCO2 (34-47) mmHg ABG pO2 (83-108) mmHg ABG HCO3 (22-28) mmol/L ABG Total CO2 (22-29) mmol/L ABG O2 Saturation (94-98) % ABG Base Excess (-3-3) mmol/L Chloride 112 H (98-107) mmol/L BUN 32 H (7-18) mg/dL Glucose 131 H (74-106) mg/dL Calcium 7.8 L (8.5-10.1) mg/dL Total Bilirubin (0.2-1.0) mg/dL AST (15-37) U/L Ammonia 47 H (11-32) umol/L Total Protein 5.0 L (6.4-8.2) g/dL Albumin 2.2 L (3.4-5.0) g/dL 11/06/19 Range/Units 05:00 WBC (4.4-10.8) k/cumm RBC (4.50-6.00) m/cumm Hgb (13.5-17.5) g/dL Hct (40.0-50.0) % MCHC (32.0-36.0) g/dL RDW (11.8-14.1) % Plt Count (130-400) x1000/uL Absolute Neutrophils (1.2-6.7) k/cumm Absolute Lymphocytes (1.2-3.4) k/cumm Absolute Monocytes (0.11-0.7) k/cumm PT 11.6 H (9.3-11.0) sec INR 1.2 H (0.9-1.1) ABG pH (7.35-7.45) ABG pCO2 (34-47) mmHg ABG pO2 (83-108) mmHg ABG HCO3 (22-28) mmol/L ABG Total CO2 (22-29) mmol/L ABG O2 Saturation (94-98) % ABG Base Excess (-3-3) mmol/L Chloride (98-107) mmol/L BUN (7-18) mg/dL Glucose (74-106) mg/dL Calcium (8.5-10.1) mg/dL Total Bilirubin (0.2-1.0) mg/dL AST (15-37) U/L Ammonia (11-32) umol/L Total Protein (6.4-8.2) g/dL Albumin (3.4-5.0) g/dL Vital Signs Temperature 98.2 F 11/06/19 07:52 Temperature Source Temporal Artery Scan 11/06/19 07:52 Pulse 61 11/06/19 07:51 Pulse Rhythm Regular 11/04/19 16:26 Pulse 60 11/06/19 07:47 Respiratory Rate 14 11/06/19 07:51 Respiratory Effort 11/06/19 07:52 Respiratory Depth Normal 11/06/19 07:52 Respiratory Pattern Normal 11/06/19 07:52 Blood Pressure 100/42 L 11/06/19 07:47 Blood Pressure Mean 56 11/06/19 07:47 Blood Pressure Position Supine 11/06/19 07:52 Pulse Oximetry 97 11/06/19 07:52 Respiratory End-tidal CO2 27 11/05/19 21:50 Oxygen Delivery Method Bi-pap 11/06/19 07:52 Oxygen Flow Rate 2 11/05/19 19:49 Fraction of Inspired Oxygen (FIO2) 34 11/06/19 07:51 Pain Level 2 11/06/19 04:10 Intake & Output 11/05/19 11/05/19 11/06/19 11:59 23:59 11:59 Intake Total 0 / 500 500 / 500 268.038 / 268.038 Output Total 960 / 2470 1510 / 2470 170 / 170 Balance - -1009 98.038 / 98.038 Weight 231 lb 0.711 oz Intake: IV 0 / 0 0 / 0 268.038 / 268.038 Oral 500 / 500 Output: Chest Tube Drainage 160 / 320 160 / 320 170 / 170 Urine 800 / 2150 1350 / 2150 Other: Urine Color Yellow Straw Urine Appearance Clear Clear Urine Odor None Comment Rosario intact and draining clear straw colored urine. Rosario catheter intact and draining clear straw colored urine. Rosario catheter intact and draining clear yellow urine. Stool Occult Blood Negative Stool Size Large Stool Characteristics Brown Laboratory Results WBC 3.77 k/cumm (4.4-10.8) L 11/06/19 05:00 RBC 2.85 m/cumm (4.50-6.00) L 11/06/19 05:00 Hgb 8.5 g/dL (13.5-17.5) L 11/06/19 05:00 Hct 26.3 % (40.0-50.0) L 11/06/19 05:00 MCV 92.3 fL (80-95) 11/06/19 05:00 MCH 29.8 pg (27.0-33.0) 11/06/19 05:00 MCHC 32.3 g/dL (32.0-36.0) 11/06/19 05:00 RDW 15.2 % (11.8-14.1) H 11/06/19 05:00 Plt Count 84 x1000/uL (130-400) L 11/06/19 05:00 MPV 8.3 fL (8.0-11.0) 11/06/19 05:00 Immature Gran % 0.3 % 11/06/19 05:00 Neutrophils % 73.0 11/06/19 05:00 Lymphocytes % 13.5 11/06/19 05:00 Monocytes % 11.9 11/06/19 05:00 Eosinophils % 1.3 11/06/19 05:00 Basophils % 0.0 11/06/19 05:00 Absolute Neutrophils 2.75 k/cumm (1.2-6.7) 11/06/19 05:00 Absolute Lymphocytes 0.51 k/cumm (1.2-3.4) L 11/06/19 05:00 Absolute Monocytes 0.45 k/cumm (0.11-0.7) 11/06/19 05:00 Absolute Eosinophils 0.05 k/cumm (0.0-0.7) 11/06/19 05:00 Absolute Basophils 0.00 k/cumm (0.0-0.2) 11/06/19 05:00 PT 11.6 sec (9.3-11.0) H 11/06/19 05:00 INR 1.2 (0.9-1.1) H 11/06/19 05:00 ABG Sample Site Right radial 11/05/19 22:40 ABG pH 7.32 (7.35-7.45) L 11/05/19 22:40 ABG pCO2 37 mmHg (34-47) 11/05/19 22:40 ABG pO2 79 mmHg (83-108) L 11/05/19 22:40 ABG HCO3 19 mmol/L (22-28) L 11/05/19 22:40 ABG Total CO2 18 mmol/L (22-29) L 11/05/19 22:40 ABG O2 Saturation 97 % (94-98) 11/05/19 22:40 ABG Base Excess -6.9 mmol/L (-3-3) L 11/05/19 22:40 Oxygen Liter Flow 15/3 L 11/05/19 22:40 FiO2 24 % 11/05/19 22:40 Sodium 142 mmol/L (136-145) 11/06/19 05:00 Potassium 4.1 mmol/L (3.5-5.1) 11/06/19 05:00 Chloride 112 mmol/L (98-107) H 11/06/19 05:00 Carbon Dioxide 23.4 mmol/L (21.0-32.0) 11/06/19 05:00 Anion Gap 6.6 mmol/L (3-11) 11/06/19 05:00 BUN 32 mg/dL (7-18) H 11/06/19 05:00 Creatinine 1.14 mg/dL (0.70-1.30) 11/06/19 05:00 Estimated GFR/1.73 m2 >= 60.00 (mL/min/1.73m2) 11/06/19 05:00 Glucose 131 mg/dL (74-106) H 11/06/19 05:00 Calcium 7.8 mg/dL (8.5-10.1) L 11/06/19 05:00 Total Bilirubin 0.9 mg/dL (0.2-1.0) 11/06/19 05:00 GGT 28 U/L (15-85) 11/05/19 12:10 AST 23 U/L (15-37) 11/06/19 05:00 ALT 22 U/L (16-63) 11/06/19 05:00 Alkaline Phosphatase 55 U/L (46-116) 11/06/19 05:00 Ammonia 47 umol/L (11-32) H 11/06/19 05:00 Total Protein 5.0 g/dL (6.4-8.2) L 11/06/19 05:00 Albumin 2.2 g/dL (3.4-5.0) L 11/06/19 05:00 Urine Color Treva (Yellow) 11/04/19 18:57 Urine Clarity Clear (Clear) 11/04/19 18:57 Urine pH 5.0 (5-8) 11/04/19 18:57 Ur Specific [place] 1.025 (1.005-1.025) 11/04/19 18:57 Urine Protein Negative mg/dL (Negative) 11/04/19 18:57 Urine Ketones Negative mg/dL (Negative) 11/04/19 18:57 Urine Blood Negative (Negative) 11/04/19 18:57 Urine Nitrite Negative (Negative) 11/04/19 18:57 Urine Bilirubin Negative (Negative) 11/04/19 18:57 Urine Urobilinogen 0.2 EU/dL (Up TO 0.2) 11/04/19 18:57 Ur Leukocyte Esterase Negative (Negative) 11/04/19 18:57 Urine Glucose 500 mg/dL (Negative) H 11/04/19 18:57 Patient ABO/Rh A Positive 11/05/19 23:05 Antibody Screen Positive 11/05/19 23:05
--- NOTE | 2019-11-06 08:23 | PDOC.CMPRO ---
- If Service Date Differs Date of service: 11/06/19 Time of Service: 08:23 Care Management Progress Note S/O: Dong remains in the ICU on a norepinephrine drip to control his blood pressure. He is still obtunded so CM was unable to speak with him. Yesterday Dong had an epidural placed to control his pain but it was turned off due to hypotension. Dong remains on bipap and his respiratory status appears stable at the moment, with no increase in the pneumothorax or infiltrates. CM will follow. A: Alonzo is a 64 year old man admitted on 11/04/19 with a recurrent pneumothorax P: Alonzo remains ICU level of care today. He will likely benefit from new services at discharge, although the plan is not clear at this time. CM will continue to support Alonzo and assess for discharge planning concerns.
--- NOTE | 2019-11-06 09:25 | NUR.NOTE ---
Estela in lab called to say that the patient has multiple antibodies in his blood and there is no blood in house that the patient could receive in a transfusion. Blood will need to be obtained from [facility] and there will be at least a one day turn around. Dr. Mckenzie was made aware in person as he is in the unit at this time. Nursing Note:
[2019-11-06] MEDS: Pantoprazole 40 MG VIAL IVP (09:46)
[2019-11-06] MEDS: Lactulose 20 GM/30 ML CUP PO ×4 (09:46→21:20)
[2019-11-06] MEDS: Rifaximin 550 MG TAB PO ×2 (09:47→21:20)
[2019-11-06] MEDS: Normal Saline Flush 10 ML SYR IVP ×2 (09:47→21:44)
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
--- NOTE | 2019-11-06 10:10 | NUR.NOTE ---
0930--Patient woke up, bipp removed briefly for PO medication administration at this time. Patient asked Where am I. This nurse answered patient's questions and placed on the Bipap. Nursing Note:
--- NOTE | 2019-11-06 11:22 | PGE_ITS ---
Date of Service Date of service: 11/06/19 Time of Service: 11:22 Assessment and Plan Assessment and plan (1) CO2 narcosis: Status: Acute Assessment and plan: clinically improving w/ use of BIPAP and witholding of his narcotics (2) Pneumothorax: Status: Acute Assessment and plan: s/p chest tube. Defer to primary team rib block repeated by anesthesia, Currently on epidural analgesic Qualifiers: Pneumothorax type: traumatic Encounter type: initial encounter Qualified Code(s): S27.0XXA - Traumatic pneumothorax, initial encounter (3) Fracture of rib of left side: Status: Acute Assessment and plan: Non-operative management as above. Encourage IS once able to cooperate. Qualifiers: Encounter type: initial encounter Rib fracture type: multiple ribs Fracture type: closed Qualified Code(s): S22.42XA - Multiple fractures of ribs, left side, initial encounter for closed fracture (4) Cirrhosis: Status: Chronic Assessment and plan: Due to EtOH abuse in the past as well as hepatitis C. S/p TIPS procedure. Has a h/o esophageal varices/bleeding, hepatic encephalopathy. Follows with [facility] [place]. Avoid NSAIDs. continue Rifaxamin and lactulose Qualifiers: Hepatic cirrhosis type: unspecified hepatic cirrhosis Ascites presence: without ascites Qualified Code(s): K74.60 - Unspecified cirrhosis of liver (5) Fracture of left clavicle: Status: Acute Assessment and plan: Non-operative management, per ortho. Continue sling for comfort Qualifiers: Encounter type: initial encounter Clavicle location: unspecified part of clavicle Fracture type: closed Fracture alignment: nondisplaced Qualified Code(s): S42.002A - Fracture of unspecified part of left clavicle, initial encounter for closed fracture (6) Hepatic encephalopathy: Status: Acute Assessment and plan: Agree with intensive lactulose regimen. Continue rifaxamin (7) Drug abuse: Status: Suspected Assessment and plan: use minimum amount of narcotics necessary to control his pain. Subjective Subjective Interval history since last seen: Patient was very somnolent this morning. Overnight he got very agitated and developed hypotension and his epidural analgesics got discontinued. He got started on a Precedex drip and required norepinephrine to maintain his blood pressure last night. His Precedex drip was stopped at 8 a.m. and over the morning he has woken up. He is alert but has periods of somnolence. He is encephalopathic from his cirrhosis. However, he is willing to take his Rifaximin and lactulose. He should wear his BIPAP whenever he sleeps during the day or night d/t hypercapnea. Despite discontinuation of the Precedex drip, he has remained mildly hypotensive and has required continued use of low dose norepinephrine. Exam Narrative Exam Narrative: Overall the patient is calm her today. When awakened he is confused and states that he wants everything off of him and wants to get out of here. However he is not oriented to his circumstance nor to place and time. Left chest wall is bruised he has a chest tube placed in the left anterior superior thorax Lungs are clear to auscultation anteriorly posteriorly has marked diminished breath sounds in the left base no rhonchi Heart is regular rate and rhythm Abdomen soft nondistended normal active bowel sounds Extremities without peripheral cyanosis or edema. Objective Objective Clinical Data: Abnormal lab results 11/05/19 11/05/19 11/05/19 Range/Units 12:10 12:10 12:10 WBC (4.4-10.8) k/cumm RBC 3.59 L (4.50-6.00) m/cumm Hgb 10.5 L (13.5-17.5) g/dL Hct 32.9 L (40.0-50.0) % MCHC 31.9 L (32.0-36.0) g/dL RDW 15.2 H (11.8-14.1) % Plt Count (130-400) x1000/uL Absolute Neutrophils 6.88 H (1.2-6.7) k/cumm Absolute Lymphocytes 0.32 L (1.2-3.4) k/cumm Absolute Monocytes 0.98 H (0.11-0.7) k/cumm PT (9.3-11.0) sec INR (0.9-1.1) ABG pH (7.35-7.45) ABG pO2 (83-108) mmHg ABG HCO3 (22-28) mmol/L ABG Total CO2 (22-29) mmol/L ABG Base Excess (-3-3) mmol/L Chloride 111 H (98-107) mmol/L BUN 33 H (7-18) mg/dL Glucose 154 H (74-106) mg/dL Calcium (8.5-10.1) mg/dL Total Bilirubin 1.3 H (0.2-1.0) mg/dL AST 38 H (15-37) U/L Ammonia 59 H (11-32) umol/L Total Protein (6.4-8.2) g/dL Albumin 3.0 L (3.4-5.0) g/dL 11/05/19 11/05/19 11/05/19 Range/Units 12:10 21:55 22:40 WBC 4.25 L D (4.4-10.8) k/cumm RBC 2.99 L (4.50-6.00) m/cumm Hgb 8.7 L (13.5-17.5) g/dL Hct 27.6 L (40.0-50.0) % MCHC 31.5 L (32.0-36.0) g/dL RDW 15.1 H (11.8-14.1) % Plt Count 89 L (130-400) x1000/uL Absolute Neutrophils (1.2-6.7) k/cumm Absolute Lymphocytes (1.2-3.4) k/cumm Absolute Monocytes (0.11-0.7) k/cumm PT 11.3 H (9.3-11.0) sec INR (0.9-1.1) ABG pH 7.32 L (7.35-7.45) ABG pO2 79 L (83-108) mmHg ABG HCO3 19 L (22-28) mmol/L ABG Total CO2 18 L (22-29) mmol/L ABG Base Excess -6.9 L (-3-3) mmol/L Chloride (98-107) mmol/L BUN (7-18) mg/dL Glucose (74-106) mg/dL Calcium (8.5-10.1) mg/dL Total Bilirubin (0.2-1.0) mg/dL AST (15-37) U/L Ammonia (11-32) umol/L Total Protein (6.4-8.2) g/dL Albumin (3.4-5.0) g/dL 11/06/19 11/06/19 11/06/19 Range/Units 05:00 05:00 05:00 WBC 3.77 L (4.4-10.8) k/cumm RBC 2.85 L (4.50-6.00) m/cumm Hgb 8.5 L (13.5-17.5) g/dL Hct 26.3 L (40.0-50.0) % MCHC (32.0-36.0) g/dL RDW 15.2 H (11.8-14.1) % Plt Count 84 L (130-400) x1000/uL Absolute Neutrophils (1.2-6.7) k/cumm Absolute Lymphocytes 0.51 L (1.2-3.4) k/cumm Absolute Monocytes (0.11-0.7) k/cumm PT (9.3-11.0) sec INR (0.9-1.1) ABG pH (7.35-7.45) ABG pO2 (83-108) mmHg ABG HCO3 (22-28) mmol/L ABG Total CO2 (22-29) mmol/L ABG Base Excess (-3-3) mmol/L Chloride 112 H (98-107) mmol/L BUN 32 H (7-18) mg/dL Glucose 131 H (74-106) mg/dL Calcium 7.8 L (8.5-10.1) mg/dL Total Bilirubin (0.2-1.0) mg/dL AST (15-37) U/L Ammonia 47 H (11-32) umol/L Total Protein 5.0 L (6.4-8.2) g/dL Albumin 2.2 L (3.4-5.0) g/dL 11/06/19 Range/Units 05:00 WBC (4.4-10.8) k/cumm RBC (4.50-6.00) m/cumm Hgb (13.5-17.5) g/dL Hct (40.0-50.0) % MCHC (32.0-36.0) g/dL RDW (11.8-14.1) % Plt Count (130-400) x1000/uL Absolute Neutrophils (1.2-6.7) k/cumm Absolute Lymphocytes (1.2-3.4) k/cumm Absolute Monocytes (0.11-0.7) k/cumm PT 11.6 H (9.3-11.0) sec INR 1.2 H (0.9-1.1) ABG pH (7.35-7.45) ABG pO2 (83-108) mmHg ABG HCO3 (22-28) mmol/L ABG Total CO2 (22-29) mmol/L ABG Base Excess (-3-3) mmol/L Chloride (98-107) mmol/L BUN (7-18) mg/dL Glucose (74-106) mg/dL Calcium (8.5-10.1) mg/dL Total Bilirubin (0.2-1.0) mg/dL AST (15-37) U/L Ammonia (11-32) umol/L Total Protein (6.4-8.2) g/dL Albumin (3.4-5.0) g/dL Vital Signs Temperature 36.8 C 11/06/19 07:52 Temperature Source Temporal Artery Scan 11/06/19 07:52 Pulse 70 11/06/19 10:46 Pulse Rhythm Regular 11/04/19 16:26 Pulse 69 11/06/19 10:46 Respiratory Rate 17 11/06/19 10:46 Respiratory Effort 11/06/19 07:52 Respiratory Depth Normal 11/06/19 07:52 Respiratory Pattern Normal 11/06/19 07:52 Blood Pressure 103/55 L 11/06/19 10:46 Blood Pressure Mean 68 11/06/19 10:46 Blood Pressure Position Supine 11/06/19 07:52 Pulse Oximetry 95 11/06/19 10:46 Respiratory End-tidal CO2 27 11/05/19 21:50 Oxygen Delivery Method Bi-pap 11/06/19 07:52 Oxygen Flow Rate 2 11/05/19 19:49 Fraction of Inspired Oxygen (FIO2) 34 11/06/19 07:51 Pain Level 2 11/06/19 04:10 Intake & Output 11/05/19 11/05/19 11/06/19 11:59 23:59 11:59 Intake Total 0 / 500 500 / 500 365.932 / 365.932 Output Total 960 / 2470 1510 / 2470 570 / 570 Balance -960 / -1970 -1010 / -1970 -204.068 / -204.068 Weight 104.8 kg Intake: IV 0 / 0 0 / 0 365.932 / 365.932 Oral 500 / 500 Output: Chest Tube Drainage 160 / 320 160 / 320 170 / 170 Urine 800 / 2150 1350 / 2150 400 / 400 Other: Urine Color Yellow Straw Straw Urine Appearance Clear Clear Clear Urine Odor None Comment Rosario intact and draining clear straw colored urine. Rosario catheter intact and draining clear straw colored urine. Rosario catheter intact and draining clear yellow urine. Stool Occult Blood Negative Stool Size Large Stool Characteristics Brown Laboratory Results WBC 3.77 k/cumm (4.4-10.8) L 11/06/19 05:00 RBC 2.85 m/cumm (4.50-6.00) L 11/06/19 05:00 Hgb 8.5 g/dL (13.5-17.5) L 11/06/19 05:00 Hct 26.3 % (40.0-50.0) L 11/06/19 05:00 MCV 92.3 fL (80-95) 11/06/19 05:00 MCH 29.8 pg (27.0-33.0) 11/06/19 05:00 MCHC 32.3 g/dL (32.0-36.0) 11/06/19 05:00 RDW 15.2 % (11.8-14.1) H 11/06/19 05:00 Plt Count 84 x1000/uL (130-400) L 11/06/19 05:00 MPV 8.3 fL (8.0-11.0) 11/06/19 05:00 Immature Gran % 0.3 % 11/06/19 05:00 Neutrophils % 73.0 11/06/19 05:00 Lymphocytes % 13.5 11/06/19 05:00 Monocytes % 11.9 11/06/19 05:00 Eosinophils % 1.3 11/06/19 05:00 Basophils % 0.0 11/06/19 05:00 Absolute Neutrophils 2.75 k/cumm (1.2-6.7) 11/06/19 05:00 Absolute Lymphocytes 0.51 k/cumm (1.2-3.4) L 11/06/19 05:00 Absolute Monocytes 0.45 k/cumm (0.11-0.7) 11/06/19 05:00 Absolute Eosinophils 0.05 k/cumm (0.0-0.7) 11/06/19 05:00 Absolute Basophils 0.00 k/cumm (0.0-0.2) 11/06/19 05:00 PT 11.6 sec (9.3-11.0) H 11/06/19 05:00 INR 1.2 (0.9-1.1) H 11/06/19 05:00 ABG Sample Site Right radial 11/05/19 22:40 ABG pH 7.32 (7.35-7.45) L 11/05/19 22:40 ABG pCO2 37 mmHg (34-47) 11/05/19 22:40 ABG pO2 79 mmHg (83-108) L 11/05/19 22:40 ABG HCO3 19 mmol/L (22-28) L 11/05/19 22:40 ABG Total CO2 18 mmol/L (22-29) L 11/05/19 22:40 ABG O2 Saturation 97 % (94-98) 11/05/19 22:40 ABG Base Excess -6.9 mmol/L (-3-3) L 11/05/19 22:40 Oxygen Liter Flow 15/3 L 11/05/19 22:40 FiO2 24 % 11/05/19 22:40 Sodium 142 mmol/L (136-145) 11/06/19 05:00 Potassium 4.1 mmol/L (3.5-5.1) 11/06/19 05:00 Chloride 112 mmol/L (98-107) H 11/06/19 05:00 Carbon Dioxide 23.4 mmol/L (21.0-32.0) 11/06/19 05:00 Anion Gap 6.6 mmol/L (3-11) 11/06/19 05:00 BUN 32 mg/dL (7-18) H 11/06/19 05:00 Creatinine 1.14 mg/dL (0.70-1.30) 11/06/19 05:00 Estimated GFR/1.73 m2 >= 60.00 (mL/min/1.73m2) 11/06/19 05:00 Glucose 131 mg/dL (74-106) H 11/06/19 05:00 Calcium 7.8 mg/dL (8.5-10.1) L 11/06/19 05:00 Total Bilirubin 0.9 mg/dL (0.2-1.0) 11/06/19 05:00 GGT 28 U/L (15-85) 11/05/19 12:10 AST 23 U/L (15-37) 11/06/19 05:00 ALT 22 U/L (16-63) 11/06/19 05:00 Alkaline Phosphatase 55 U/L (46-116) 11/06/19 05:00 Ammonia 47 umol/L (11-32) H 11/06/19 05:00 Total Protein 5.0 g/dL (6.4-8.2) L 11/06/19 05:00 Albumin 2.2 g/dL (3.4-5.0) L 11/06/19 05:00 Urine Color Treva (Yellow) 11/04/19 18:57 Urine Clarity Clear (Clear) 11/04/19 18:57 Urine pH 5.0 (5-8) 11/04/19 18:57 Ur Specific [place] 1.025 (1.005-1.025) 11/04/19 18:57 Urine Protein Negative mg/dL (Negative) 11/04/19 18:57 Urine Ketones Negative mg/dL (Negative) 11/04/19 18:57 Urine Blood Negative (Negative) 11/04/19 18:57 Urine Nitrite Negative (Negative) 11/04/19 18:57 Urine Bilirubin Negative (Negative) 11/04/19 18:57 Urine Urobilinogen 0.2 EU/dL (Up TO 0.2) 11/04/19 18:57 Ur Leukocyte Esterase Negative (Negative) 11/04/19 18:57 Urine Glucose 500 mg/dL (Negative) H 11/04/19 18:57 Patient ABO/Rh A Positive 11/05/19 23:05 Antibody Screen Positive 11/05/19 23:05
--- NOTE | 2019-11-06 13:52 | PDOC.ANES ---
Date of service: 11/06/19 Time of Service: 10:40 Anesthesia Note Report Anesthesia Note: Epidural Daily Assessment: Epidural discontinued due to hypotension at around 0430. I feel the hypotension is likely due to the combination of haldol, ativan and precedex given overnight and likely not the epidural. Pt, while, sleepy, does awaken and speak when spoken to. He does state his ribs and shoulder are now painful. He continues on BiPAP but his mental status does seem to be improving and he is now able to take oral medications. He is still on norepinephrine drip at 4mcg/min, although this dose has been titrated down over the last few hours with the goal to titrate off. Epidural site intact, however given discomfort, did not assess catheter depth. Decision made to restart epidural infusion at 10ml/hr and patient given 5ml clinician bolus from pump X2. Pt. states his pain is better now which is reassuring and his hemodynamics remain unchanged. Nursing will continue to assess him and call for any concerns.
--- NOTE | 2019-11-06 13:59 | PGE_ITS ---
Date of Service Date of service: 11/06/19 Time of Service: 13:59 Assessment and Plan Assessment and plan (1) Hepatic encephalopathy: Status: Acute Assessment and plan: Ammonia levels down. Had one large BM yesterday. Refused his Lactulose last night. Off Precedex now. More awake but confused Still on norepi at 3 mcg an hr. Trying to wean him off Recheck CBC (2) CO2 narcosis: Status: Acute Assessment and plan: Resolved with Cpap. Continue CPAP while sedated. Will try to remove if he wakes up a little today (3) Pneumothorax: Status: Acute Assessment and plan: Output is serous now He did have a drop in his HGB Will monitor. NO blood in his stool yesterday CT abdomen and pelvis from first admission was negative for bleeding Qualifiers: Pneumothorax type: traumatic Encounter type: initial encounter Qualified Code(s): S27.0XXA - Traumatic pneumothorax, initial encounter (4) Fracture of rib of left side: Status: Acute Assessment and plan: Doing well. Pain seems controlled. He is not tachycardic Epidural in place but turned off due to his hypotension. Will restart if his BP comes up and he is in pain Qualifiers: Encounter type: initial encounter Rib fracture type: multiple ribs Fracture type: closed Qualified Code(s): S22.42XA - Multiple fractures of ribs, left side, initial encounter for closed fracture (5) Fracture of left clavicle: Status: Acute Assessment and plan: stable Qualifiers: Encounter type: initial encounter Clavicle location: unspecified part of clavicle Fracture type: closed Fracture alignment: nondisplaced Qualified Code(s): S42.002A - Fracture of unspecified part of left clavicle, initial encou nter for closed fracture (6) Cirrhosis: Status: Chronic Assessment and plan: Hep C adn ETOH abuse. GI felt it was more due to ETOH use. Pt states he is 14m sober. Qualifiers: Hepatic cirrhosis type: unspecified hepatic cirrhosis Ascites presence: without ascites Qualified Code(s): K74.60 - Unspecified cirrhosis of liver (7) Red blood cell antibody positive with compatible PRBC difficult to obtain: Status: Acute (8) Gallstones: Status: Acute Assessment and plan: No signs of cholecystitis. Abdomen is soft and non- tender (9) Left inguinal hernia: Status: Acute (10) Anemia: Status: Chronic Assessment and plan: A\\ Most likely multifactorial. No sigs of active bleeding P\\ Follow closely. Unfortunately the patient has antibodies so if he needs blood it will be difficult to find a match Qualifiers: Anemia type: unspecified type Qualified Code(s): D64.9 - Anemia, unspecified (11) Hx of caloric malnutrition: Status: Acute Assessment and plan: Unable to feed right now because of how sedated he is. TPN not a good idea due to his liver disease Hopefully will wake up a little today so he can take in some nutrition Albumin is low at 2.2 (12) Sore throat: Status: Acute Assessment and plan: A\\ NO thrush. Uvual is irritated which may be causing his pain P\\ Try some chloraceptic spray Encourage some po liquids now that he is more awake. Subjective Subjective Interval history since last seen: Patient seen again. He is waking up and trying to remove the CPAP machine. CPAP removed. He opened his eyes to my voice. He is acting encephalopathic. He is confused. He didn't know he was in the hospitla. He is arguing with me and telling me he desn't have cirrhosis. He did take his meds today. He ias asking to get on the bedpan to have a BM. Goal is for 3 BM's per day. Per nursing staff he is complaining of a sore throat Exam [facility] Mouth: lip normal and other (dry tongue. NO signs of thrush) Throat: posterior oropharynx normal and uvula midline (The tip of the uvula is white. There is some irritation noted as well.) Resp Effort & Inspection: normal respiratory effort Auscultation: clear to auscultation bilaterally and diminished lung sounds bilaterally in the lower lung menard Cardio Rate: regular rate Rhythm: regular rhythm GI Palpation: soft and nontender Auscultation: normal bowel sounds Objective Objective Clinical Data: Abnormal lab results 11/05/19 11/05/19 11/06/19 Range/Units 21:55 22:40 05:00 WBC 4.25 L D (4.4-10.8) k/cumm RBC 2.99 L (4.50-6.00) m/cumm Hgb 8.7 L (13.5-17.5) g/dL Hct 27.6 L (40.0-50.0) % MCHC 31.5 L (32.0-36.0) g/dL RDW 15.1 H (11.8-14.1) % Plt Count 89 L (130-400) x1000/uL Absolute Lymphocytes (1.2-3.4) k/cumm PT (9.3-11.0) sec INR (0.9-1.1) ABG pH 7.32 L (7.35-7.45) ABG pO2 79 L (83-108) mmHg ABG HCO3 19 L (22-28) mmol/L ABG Total CO2 18 L (22-29) mmol/L ABG Base Excess -6.9 L (-3-3) mmol/L Chloride 112 H (98-107) mmol/L BUN 32 H (7-18) mg/dL Glucose 131 H (74-106) mg/dL Calcium 7.8 L (8.5-10.1) mg/dL Ammonia (11-32) umol/L Total Protein 5.0 L (6.4-8.2) g/dL Albumin 2.2 L (3.4-5.0) g/dL 11/06/19 11/06/19 11/06/19 Range/Units 05:00 05:00 05:00 WBC 3.77 L (4.4-10.8) k/cumm RBC 2.85 L (4.50-6.00) m/cumm Hgb 8.5 L (13.5-17.5) g/dL Hct 26.3 L (40.0-50.0) % MCHC (32.0-36.0) g/dL RDW 15.2 H (11.8-14.1) % Plt Count 84 L (130-400) x1000/uL Absolute Lymphocytes 0.51 L (1.2-3.4) k/cumm PT 11.6 H (9.3-11.0) sec INR 1.2 H (0.9-1.1) ABG pH (7.35-7.45) ABG pO2 (83-108) mmHg ABG HCO3 (22-28) mmol/L ABG Total CO2 (22-29) mmol/L ABG Base Excess (-3-3) mmol/L Chloride (98-107) mmol/L BUN (7-18) mg/dL Glucose (74-106) mg/dL Calcium (8.5-10.1) mg/dL Ammonia 47 H (11-32) umol/L Total Protein (6.4-8.2) g/dL Albumin (3.4-5.0) g/dL Vital Signs Temperature 98.2 F 11/06/19 12:03 Temperature Source Temporal Artery Scan 11/06/19 12:03 Pulse 93 H 11/06/19 13:41 Pulse Rhythm Regular 11/04/19 16:26 Pulse 92 H 11/06/19 13:41 Respiratory Rate 27 H 11/06/19 13:41 Respiratory Effort 11/06/19 12:03 Respiratory Depth Normal 11/06/19 12:03 Respiratory Pattern Normal 11/06/19 12:03 Blood Pressure 149/66 H 11/06/19 13:41 Blood Pressure Mean 87 11/06/19 13:41 Blood Pressure Position Supine 11/06/19 12:03 Pulse Oximetry 95 11/06/19 13:41 Respiratory End-tidal CO2 24 11/06/19 11:11 Oxygen Delivery Method Bi-pap 11/06/19 12:33 Oxygen Flow Rate 2 11/06/19 11:05 Fraction of Inspired Oxygen (FIO2) 34 11/06/19 11:22 Pain Level 2 11/06/19 04:10 Intake & Output 11/05/19 11/06/19 11/06/19 23:59 11:59 23:59 Intake Total 500 / 500 431.369 / 438.744 7.375 / 438.744 Output Total 1510 / 2470 570 / 570 Balance -1010 / -1970 -138.631 / -131.256 7.375 / -131.256 Intake: IV 0 / 0 371.369 / 378.744 7.375 / 378.744 Oral 500 / 500 60 / 60 Output: Chest Tube Drainage 160 / 320 170 / 170 Urine 1350 / 2150 400 / 400 Other: Urine Color Straw Straw Urine Appearance Clear Clear Comment Rosario catheter intact and draining clear straw colored urine. Rosario catheter intact and draining clear yellow urine. Rosario catheter intact and draining clear yellow urine. Stool Occult Blood Negative Stool Size Large Stool Characteristics Brown Laboratory Results WBC 3.77 k/cumm (4.4-10.8) L 11/06/19 05:00 RBC 2.85 m/cumm (4.50-6.00) L 11/06/19 05:00 Hgb 8.5 g/dL (13.5-17.5) L 11/06/19 05:00 Hct 26.3 % (40.0-50.0) L 11/06/19 05:00 MCV 92.3 fL (80-95) 11/06/19 05:00 MCH 29.8 pg (27.0-33.0) 11/06/19 05:00 MCHC 32.3 g/dL (32.0-36.0) 11/06/19 05:00 RDW 15.2 % (11.8-14.1) H 11/06/19 05:00 Plt Count 84 x1000/uL (130-400) L 11/06/19 05:00 MPV 8.3 fL (8.0-11.0) 11/06/19 05:00 Immature Gran % 0.3 % 11/06/19 05:00 Neutrophils % 73.0 11/06/19 05:00 Lymphocytes % 13.5 11/06/19 05:00 Monocytes % 11.9 11/06/19 05:00 Eosinophils % 1.3 11/06/19 05:00 Basophils % 0.0 11/06/19 05:00 Absolute Neutrophils 2.75 k/cumm (1.2-6.7) 11/06/19 05:00 Absolute Lymphocytes 0.51 k/cumm (1.2-3.4) L 11/06/19 05:00 Absolute Monocytes 0.45 k/cumm (0.11-0.7) 11/06/19 05:00 Absolute Eosinophils 0.05 k/cumm (0.0-0.7) 11/06/19 05:00 Absolute Basophils 0.00 k/cumm (0.0-0.2) 11/06/19 05:00 PT 11.6 sec (9.3-11.0) H 11/06/19 05:00 INR 1.2 (0.9-1.1) H 11/06/19 05:00 ABG Sample Site Right radial 11/05/19 22:40 ABG pH 7.32 (7.35-7.45) L 11/05/19 22:40 ABG pCO2 37 mmHg (34-47) 11/05/19 22:40 ABG pO2 79 mmHg (83-108) L 11/05/19 22:40 ABG HCO3 19 mmol/L (22-28) L 11/05/19 22:40 ABG Total CO2 18 mmol/L (22-29) L 11/05/19 22:40 ABG O2 Saturation 97 % (94-98) 11/05/19 22:40 ABG Base Excess -6.9 mmol/L (-3-3) L 11/05/19 22:40 Oxygen Liter Flow 15/3 L 11/05/19 22:40 FiO2 24 % 11/05/19 22:40 Sodium 142 mmol/L (136-145) 11/06/19 05:00 Potassium 4.1 mmol/L (3.5-5.1) 11/06/19 05:00 Chloride 112 mmol/L (98-107) H 11/06/19 05:00 Carbon Dioxide 23.4 mmol/L (21.0-32.0) 11/06/19 05:00 Anion Gap 6.6 mmol/L (3-11) 11/06/19 05:00 BUN 32 mg/dL (7-18) H 11/06/19 05:00 Creatinine 1.14 mg/dL (0.70-1.30) 11/06/19 05:00 Estimated GFR/1.73 m2 >= 60.00 (mL/min/1.73m2) 11/06/19 05:00 Glucose 131 mg/dL (74-106) H 11/06/19 05:00 Calcium 7.8 mg/dL (8.5-10.1) L 11/06/19 05:00 Total Bilirubin 0.9 mg/dL (0.2-1.0) 11/06/19 05:00 GGT 28 U/L (15-85) 11/05/19 12:10 AST 23 U/L (15-37) 11/06/19 05:00 ALT 22 U/L (16-63) 11/06/19 05:00 Alkaline Phosphatase 55 U/L (46-116) 11/06/19 05:00 Ammonia 47 umol/L (11-32) H 11/06/19 05:00 Total Protein 5.0 g/dL (6.4-8.2) L 11/06/19 05:00 Albumin 2.2 g/dL (3.4-5.0) L 11/06/19 05:00 Urine Color Treva (Yellow) 11/04/19 18:57 Urine Clarity Clear (Clear) 11/04/19 18:57 Urine pH 5.0 (5-8) 11/04/19 18:57 Ur Specific [place] 1.025 (1.005-1.025) 11/04/19 18:57 Urine Protein Negative mg/dL (Negative) 11/04/19 18:57 Urine Ketones Negative mg/dL (Negative) 11/04/19 18:57 Urine Blood Negative (Negative) 11/04/19 18:57 Urine Nitrite Negative (Negative) 11/04/19 18:57 Urine Bilirubin Negative (Negative) 11/04/19 18:57 Urine Urobilinogen 0.2 EU/dL (Up TO 0.2) 11/04/19 18:57 Ur Leukocyte Esterase Negative (Negative) 11/04/19 18:57 Urine Glucose 500 mg/dL (Negative) H 11/04/19 18:57 Patient ABO/Rh A Positive 11/05/19 23:05 Antibody Screen Positive 11/05/19 23:05
[2019-11-06 14:18] LABS: Abs Immature Grans 0.02 10^3/uL (0.0-0.06); Absolute Basophil Count 0.02 10^3/uL (0.0-0.2); Absolute Eosinophil Count 0.12 10^3/uL (0.0-0.7); Absolute Lymphocyte Count 0.74 10^3/uL (1.2-3.4); Absolute Monocyte Count 0.66 10^3/uL (0.1-0.8); Absolute Neutrophil Count 3.62 10^3/uL (1.2-6.7); Basophils % 0.4; Eosinophils % 2.3; HCT 30.5 % (40.0-50.0); HGB 9.9 g/dL (13.5-17.5); Immature Grans % 0.4; Lymphocytes % 14.3; MCH 29.8 pg (27.0-33.0); MCHC 32.5 % (32.0-36.0); MCV 91.9 fL (80-95); MPV 8.8 fL (8.0-11.0); Monocytes % 12.7; Neutrophils % 69.9; Platelet Count 116 10^3/uL (130-400); RBC 3.32 10^6/uL (4.36-5.78); RDW 15.1 % (11.8-14.1); RDW-SD 50.1 fL; WBC 5.18 10^3/uL (4.4-10.8)
[2019-11-06] MEDS: FentaNYL/ROPIvacaine 2 mcg/ml and 0.1% 200 ML CADD Cassette EP (14:59)
[2019-11-06] MEDS: Normal Saline 1,000 ML 100 ML IV (16:00)
--- NOTE | 2019-11-06 16:16 | PGE_ITS ---
Date of Service Date of service: 11/06/19 Time of Service: 16:16 Assessment and Plan Assessment and plan (1) Hepatic encephalopathy: Status: Acute Assessment and plan: Has been taking his lactulose. Has had a couple of BM's today. He is still confused but more awake then he has been (2) CO2 narcosis: Status: Acute Assessment and plan: CPAP as needed (3) Pneumothorax: Status: Acute Assessment and plan: output droping and more serous. Will have him do some coughing tomorrow. and if no air leak will clamp chest tube and repeat XRAY in a few hours. Qualifiers: Pneumothorax type: traumatic Encounter type: initial encounter Qualified Code(s): S27.0XXA - Traumatic pneumothorax, initial encounter (4) Fracture of rib of left side: Status: Acute Assessment and plan: Doing well. Pain seems controlled. He is not tachycardic Epidural in place but turned off due to his hypotension. Will restart if his BP comes up and he is in pain Qualifiers: Encounter type: initial encounter Rib fracture type: multiple ribs Fracture type: closed Qualified Code(s): S22.42XA - Multiple fractures of ribs, left side, initial encounter for closed fracture (5) Fracture of left clavicle: Status: Acute Assessment and plan: stable Qualifiers: Encounter type: initial encounter Clavicle location: unspecified part of clavicle Fracture type: closed Fracture alignment: nondisplaced Qualified Code(s): S42.002A - Fracture of unspecified part of left clavicle, initial encounter for closed fracture (6) Cirrhosis: Status: Chronic Assessment and plan: Hep C adn ETOH abuse. GI felt it was more due to ETOH use. Pt states he is 14m sober. Qualifiers: Hepatic cirrhosis type: unspecified hepatic cirrhosis Ascites presence: without ascites Qualified Code(s): K74.60 - Unspecified cirrhosis of liver (7) Red blood cell antibody positive with compatible PRBC difficult to obtain: Status: Acute (8) Gallstones: Status: Acute Assessment and plan: No signs of cholecystitis. Abdomen is soft and non- tender (9) Left inguinal hernia: Status: Acute (10) Anemia: Status: Chronic Assessment and plan: Hgb improved from this am Qualifiers: Anemia type: unspecified type Qualified Code(s): D64.9 - Anemia, unspecified (11) Hx of caloric malnutrition: Status: Acute Assessment and plan: Start a soft diet as tolerated (12) Sore throat: Status: Acute Assessment and plan: A\\ NO thrush. Uvual is irritated which may be causing his pain P\\ Try some chloraceptic spray Encourage some po liquids now that he is more awake. Subjective Subjective Interval history since last seen: Alonzo is more alert. he is still confused. He doesn't believe that he has cirrhosis. He asked for his friend Garth. Garth came in to talk to him and calmed him down. Alonzo wanted to sit at side of his bed. With assistance from his nurse we had him sit up at side of bed with his feet on floor for a few minutes. He was then placed back onto his bed and we made the bed into a chair position. He has been drinking water. Doesnt like the ensure clear Objective Objective Clinical Data: Abnormal lab results 11/05/19 11/05/19 11/06/19 Range/Units 21:55 22:40 05:00 WBC 4.25 L D (4.4-10.8) k/cumm RBC 2.99 L (4.50-6.00) m/cumm Hgb 8.7 L (13.5-17.5) g/dL Hct 27.6 L (40.0-50.0) % MCHC 31.5 L (32.0-36.0) g/dL RDW 15.1 H (11.8-14.1) % Plt Count 89 L (130-400) x1000/uL Absolute Lymphocytes (1.2-3.4) k/cumm PT (9.3-11.0) sec INR (0.9-1.1) ABG pH 7.32 L (7.35-7.45) ABG pO2 79 L (83-108) mmHg ABG HCO3 19 L (22-28) mmol/L ABG Total CO2 18 L (22-29) mmol/L ABG Base Excess -6.9 L (-3-3) mmol/L Chloride 112 H (98-107) mmol/L BUN 32 H (7-18) mg/dL Glucose 131 H (74-106) mg/dL Calcium 7.8 L (8.5-10.1) mg/dL Ammonia (11-32) umol/L Total Protein 5.0 L (6.4-8.2) g/dL Albumin 2.2 L (3.4-5.0) g/dL 11/06/19 11/06/19 11/06/19 Range/Units 05:00 05:00 05:00 WBC 3.77 L (4.4-10.8) k/cumm RBC 2.85 L (4.50-6.00) m/cumm Hgb 8.5 L (13.5-17.5) g/dL Hct 26.3 L (40.0-50.0) % MCHC (32.0-36.0) g/dL RDW 15.2 H (11.8-14.1) % Plt Count 84 L (130-400) x1000/uL Absolute Lymphocytes 0.51 L (1.2-3.4) k/cumm PT 11.6 H (9.3-11.0) sec INR 1.2 H (0.9-1.1) ABG pH (7.35-7.45) ABG pO2 (83-108) mmHg ABG HCO3 (22-28) mmol/L ABG Total CO2 (22-29) mmol/L ABG Base Excess (-3-3) mmol/L Chloride (98-107) mmol/L BUN (7-18) mg/dL Glucose (74-106) mg/dL Calcium (8.5-10.1) mg/dL Ammonia 47 H (11-32) umol/L Total Protein (6.4-8.2) g/dL Albumin (3.4-5.0) g/dL 11/06/19 Range/Units 14:03 WBC (4.4-10.8) k/cumm RBC 3.32 L (4.50-6.00) m/cumm Hgb 9.9 L (13.5-17.5) g/dL Hct 30.5 L (40.0-50.0) % MCHC (32.0-36.0) g/dL RDW 15.1 H (11.8-14.1) % Plt Count 116 L (130-400) x1000/uL Absolute Lymphocytes 0.74 L (1.2-3.4) k/cumm PT (9.3-11.0) sec INR (0.9-1.1) ABG pH (7.35-7.45) ABG pO2 (83-108) mmHg ABG HCO3 (22-28) mmol/L ABG Total CO2 (22-29) mmol/L ABG Base Excess (-3-3) mmol/L Chloride (98-107) mmol/L BUN (7-18) mg/dL Glucose (74-106) mg/dL Calcium (8.5-10.1) mg/dL Ammonia (11-32) umol/L Total Protein (6.4-8.2) g/dL Albumin (3.4-5.0) g/dL Vital Signs Temperature 98.2 F 11/06/19 12:03 Temperature Source Temporal Artery Scan 11/06/19 12:03 Pulse 139 H 11/06/19 14:51 Pulse Rhythm Regular 11/04/19 16:26 Pulse 143 H 11/06/19 14:51 Respiratory Rate 21 11/06/19 14:51 Respiratory Effort 11/06/19 12:03 Respiratory Depth Normal 11/06/19 12:03 Respiratory Pattern Normal 11/06/19 12:03 Blood Pressure 82/49 L 11/06/19 14:51 Blood Pressure Mean 57 11/06/19 14:51 Blood Pressure Position Supine 11/06/19 12:03 Pulse Oximetry 90 L 11/06/19 14:51 Respiratory End-tidal CO2 24 11/06/19 11:11 Oxygen Delivery Method Nasal Cannula 11/06/19 14:51 Oxygen Flow Rate 2 11/06/19 14:51 Fraction of Inspired Oxygen (FIO2) 34 11/06/19 11:22 Pain Level 2 11/06/19 04:10 Intake & Output 11/05/19 11/06/19 11/06/19 23:59 11:59 23:59 Intake Total 500 / 500 431.369 / 464.931 33.562 / 464.931 Output Total 1510 / 2470 570 / 1170 600 / 1170 Balance -1010 / -1970 -138.631 / -705.069 -566.438 / -705.069 Intake: IV 0 / 0 371.369 / 404.931 33.562 / 404.931 Oral 500 / 500 60 / 60 Output: Chest Tube Drainage 160 / 320 170 / 170 Urine 1350 / 2150 400 / 800 400 / 800 Stool 200 / 200 Other: Urine Color Straw Straw Yellow Urine Appearance Clear Clear Clear Urine Odor Normal Comment Rosario catheter intact and draining clear straw colored urine. Rosario catheter intact and draining clear yellow urine. Rosario catheter intact and draining clear yellow urine. Stool Occult Blood Negative Negative Stool Size Large Moderate Stool Characteristics Brown Liquid Voiding Methods Indwelling Catheter Laboratory Results WBC 5.18 10^3/uL (4.4-10.8) 11/06/19 14:03 RBC 3.32 10^6/uL (4.36-5.78) L 11/06/19 14:03 Hgb 9.9 g/dL (13.5-17.5) L 11/06/19 14:03 Hct 30.5 % (40.0-50.0) L 11/06/19 14:03 MCV 91.9 fL (80-95) 11/06/19 14:03 MCH 29.8 pg (27.0-33.0) 11/06/19 14:03 MCHC 32.5 % (32.0-36.0) 11/06/19 14:03 RDW 15.1 % (11.8-14.1) H 11/06/19 14:03 Plt Count 116 10^3/uL (130-400) L 11/06/19 14:03 MPV 8.8 fL (8.0-11.0) 11/06/19 14:03 Immature Gran % 0.4 11/06/19 14:03 Neutrophils % 69.9 11/06/19 14:03 Lymphocytes % 14.3 11/06/19 14:03 Monocytes % 12.7 11/06/19 14:03 Eosinophils % 2.3 11/06/19 14:03 Basophils % 0.4 11/06/19 14:03 Absolute Neutrophils 3.62 10^3/uL (1.2-6.7) 11/06/19 14:03 Absolute Lymphocytes 0.74 10^3/uL (1.2-3.4) L 11/06/19 14:03 Absolute Monocytes 0.66 10^3/uL (0.1-0.8) 11/06/19 14:03 Absolute Eosinophils 0.12 10^3/uL (0.0-0.7) 11/06/19 14:03 Absolute Basophils 0.02 10^3/uL (0.0-0.2) 11/06/19 14:03 PT 11.6 sec (9.3-11.0) H 11/06/19 05:00 INR 1.2 (0.9-1.1) H 11/06/19 05:00 ABG Sample Site Right radial 11/05/19 22:40 ABG pH 7.32 (7.35-7.45) L 11/05/19 22:40 ABG pCO2 37 mmHg (34-47) 11/05/19 22:40 ABG pO2 79 mmHg (83-108) L 11/05/19 22:40 ABG HCO3 19 mmol/L (22-28) L 11/05/19 22:40 ABG Total CO2 18 mmol/L (22-29) L 11/05/19 22:40 ABG O2 Saturation 97 % (94-98) 11/05/19 22:40 ABG Base Excess -6.9 mmol/L (-3-3) L 11/05/19 22:40 Oxygen Liter Flow 15/3 L 11/05/19 22:40 FiO2 24 % 11/05/19 22:40 Sodium 142 mmol/L (136-145) 11/06/19 05:00 Potassium 4.1 mmol/L (3.5-5.1) 11/06/19 05:00 Chloride 112 mmol/L (98-107) H 11/06/19 05:00 Carbon Dioxide 23.4 mmol/L (21.0-32.0) 11/06/19 05:00 Anion Gap 6.6 mmol/L (3-11) 11/06/19 05:00 BUN 32 mg/dL (7-18) H 11/06/19 05:00 Creatinine 1.14 mg/dL (0.70-1.30) 11/06/19 05:00 Estimated GFR/1.73 m2 >= 60.00 (mL/min/1.73m2) 11/06/19 05:00 Glucose 131 mg/dL (74-106) H 11/06/19 05:00 Calcium 7.8 mg/dL (8.5-10.1) L 11/06/19 05:00 Total Bilirubin 0.9 mg/dL (0.2-1.0) 11/06/19 05:00 GGT 28 U/L (15-85) 11/05/19 12:10 AST 23 U/L (15-37) 11/06/19 05:00 ALT 22 U/L (16-63) 11/06/19 05:00 Alkaline Phosphatase 55 U/L (46-116) 11/06/19 05:00 Ammonia 47 umol/L (11-32) H 11/06/19 05:00 Total Protein 5.0 g/dL (6.4-8.2) L 11/06/19 05:00 Albumin 2.2 g/dL (3.4-5.0) L 11/06/19 05:00 Urine Color Treva (Yellow) 11/04/19 18:57 Urine Clarity Clear (Clear) 11/04/19 18:57 Urine pH 5.0 (5-8) 11/04/19 18:57 Ur Specific [place] 1.025 (1.005-1.025) 11/04/19 18:57 Urine Protein Negative mg/dL (Negative) 11/04/19 18:57 Urine Ketones Negative mg/dL (Negative) 11/04/19 18:57 Urine Blood Negative (Negative) 11/04/19 18:57 Urine Nitrite Negative (Negative) 11/04/19 18:57 Urine Bilirubin Negative (Negative) 11/04/19 18:57 Urine Urobilinogen 0.2 EU/dL (Up TO 0.2) 11/04/19 18:57 Ur Leukocyte Esterase Negative (Negative) 11/04/19 18:57 Urine Glucose 500 mg/dL (Negative) H 11/04/19 18:57 Patient ABO/Rh A Positive 11/05/19 23:05 Antibody Screen Positive 11/05/19 23:05 Antibody Identification Anti-E Anti-c 11/05/19 23:05 Antibody Identification Anti-E Anti-c 11/05/19 23:05
[2019-11-06] MEDS: QUEtiapine 25 MG TAB PO (21:20)
[2019-11-06] MEDS: Gabapentin 300 MG CAP PO (21:20)
[2019-11-06] MEDS: Simethicone 80 MG CHEW PO (21:20)
[2019-11-07] VITALS (82 sets, daily range): BP systolic 110–165; BP diastolic 53–90; PULSE 68–108; RESP 13–34; TEMP 36.9–37.4; O2SAT 87–99
[2019-11-07] MEDS: Normal Saline 1,000 ML 100 ML IV (01:44)
[2019-11-07 06:54] LABS: Anion Gap 7.2 mmol/L (3-11); BUN 16 mg/dL (7-18); CO2 22.8 mmol/L (21.0-32.0); CREATININE 0.73 mg/dL (0.70-1.30); Calcium 8.1 mg/dL (8.5-10.1); Chloride 111 mmol/L (98-107); Glucose 116 mg/dL (74-106); Magnesium 1.7 mg/dL (1.8-2.4); Potassium 3.6 mmol/L (3.5-5.1); Sodium 141 mmol/L (136-145)
[2019-11-07 07:15] LABS: Abs Immature Grans 0.02 10^3/uL (0.0-0.06); Absolute Basophil Count 0.02 10^3/uL (0.0-0.2); Absolute Eosinophil Count 0.13 10^3/uL (0.0-0.7); Absolute Monocyte Count 0.61 10^3/uL (0.1-0.8); Absolute Neutrophil Count 2.67 10^3/uL (1.2-6.7); Basophils % 0.5; Eosinophils % 3.1; HCT 29.3 % (40.0-50.0); HGB 9.4 g/dL (13.5-17.5); Immature Grans % 0.5; Lymphocytes % 16.9; MCH 29.1 pg (27.0-33.0); MCHC 32.1 % (32.0-36.0); MCV 90.7 fL (80-95); MPV 9.4 fL (8.0-11.0); Monocytes % 14.7; Neutrophils % 64.3; Platelet Count 107 10^3/uL (130-400); RBC 3.23 10^6/uL (4.36-5.78); RDW 15.1 % (11.8-14.1); RDW-SD 48.7 fL; WBC 4.15 10^3/uL (4.4-10.8)
--- NOTE | 2019-11-07 09:15 | CMPROGNOTE_ITS ---
- If Service Date Differs Date of service: 11/07/19 Time of Service: 09:15 Care Management Progress Note S/O: Dong was sitting up in bed watching TV when CM came to see him. His eyes were open and he asked CM to retrieve the remote control which he had dropped on the floor. He was picking at his chest tube dressing and was gently reminded not to do so. Dong stated that he knew not to touch it. Wrist restraints were present but not attached to the bed so he was free to move his hands. Dong ad mitted to not understanding why he has been been in the hospital for so long. CM provided him with some information and reassured him that he was improving. He is off the Precedex and bipap, is much more awake and his vital signs are stable. A: Alonzo is a 64 year old man admitted on 11/04/19 with a recurrent pneumothorax P: Alonzo remains ICU level of care today. He will likely benefit from new services at discharge, although the plan is not clear at this time. CM will continue to support Alonzo and assess for discharge planning concerns.
[2019-11-07] MEDS: MAGNESIUM SULFATE 2 GM/50 ML BAG IVPB (09:27)
[2019-11-07] MEDS: Lactulose 20 GM/30 ML CUP PO ×3 (09:28→20:22)
[2019-11-07] MEDS: Rifaximin 550 MG TAB PO ×2 (09:28→20:23)
[2019-11-07] MEDS: Pantoprazole 40 MG VIAL IVP (09:28)
--- NOTE | 2019-11-07 09:30 | DI.RAD_ITS ---
EXAM: XR PORTABLE CHEST AP CLINICAL HISTORY: Chest tube, pneumothorax TECHNIQUE: 2D digital imaging was performed. COMPARISON: CR,XR XR PORTABLE CHEST AP from 11/06/2019 FINDINGS: Left-sided chest catheter is unchanged in position. Left rib fractures are again noted. No pneumot horax is visible. The PICC line present. IMPRESSION: No significant change in appearance of the chest. No pneumothorax is visible.
--- NOTE | 2019-11-07 09:48 | PGE_ITS ---
Date of Service Date of service: 11/07/19 Time of Service: 07:00 Assessment and Plan Assessment and plan (1) Hepatic encephalopathy: Status: Acute Assessment and plan: Has been taking his lactulose. Has had a couple of BM's today. He is still confused but more awake then he has been Confusion seems to increase at night Will back off on the lactulose to TID, may skip night dose if he has had 3 BM's that day (2) CO2 narcosis: Status: Acute Assessment and plan: CPAP as needed (3) Pneumothorax: Status: Acute Assessment and plan: CT clamped. CXR showes no recurrence of his Pneumothorax Will leave clamped and get CXR in am. If CXR shows no recurrence then will pull chest tube Qualifiers: Pneumothorax type: traumatic Encounter type: initial encounter Qualified Code(s): S27.0XXA - Traumatic pneumothorax, initial encounter (4) Fracture of rib of left side: Status: Acute Assessment and plan: Doing well. Pain seems controlled. He is not tachycardic Epidural in place but turned off due to his hypotension. Will restart if his BP comes up and he is in pain Qualifiers: Encounter type: initial encounter Rib fracture type: multiple ribs Fracture type: closed Qualified Code(s): S22.42XA - Multiple fractures of ribs, left side, initial encounter for closed fracture (5) Fracture of left clavicle: Status: Acute Assessment and plan: stable Qualifiers: Encounter type: initial encounter Clavicle location: unspecified part of clavicle Fracture type: closed Fracture alignment: nondisplaced Qualified Code(s): S42.002A - Fracture of unspecified part of left clavicle, initial encounter for closed fracture (6) Cirrhosis: Status: Chronic Assessment and plan: Hep C adn ETOH abuse. GI felt it was more due to ETOH use. Pt states he is 14m sober. Qualifiers: Hepatic cirrhosis type: unspecified hepatic cirrhosis Ascites presence: without ascites Qualified Code(s): K74.60 - Unspecified cirrhosis of liver (7) Red blood cell antibody positive with compatible PRBC difficult to obtain: Status: Acute (8) Gallstones: Status: Acute Assessment and plan: No signs of cholecystitis. Abdomen is soft and non- tender (9) Left inguinal hernia: Status: Acute (10) Anemia: Status: Chronic Assessment and plan: stable Qualifiers: Anemia type: unspecified type Qualified Code(s): D64.9 - Anemia, unspecified (11) Hx of caloric malnutrition: Status: Acute Assessment and plan: Start a soft diet as tolerated. NO eating yet. Will encourage today. Try milk shakes (12) Sore throat: Status: Acute Assessment and plan: continue chloracept as needed Subjective Subjective Interval history since last seen: Alonzo is awake. He is still confused. He was not as restless last night. He did get seroquel but he didn't sleep much. He is having lots of BM's. No blood. BP is stable. Exam Const General: cooperative, comfortable and no acute distress Orientation: alert and awake HENMT Head: normocephalic and atraumatic Resp Effort & Inspection: normal respiratory effort Auscultation: clear to auscultation bilaterally Cardio Rate: regular rate Rhythm: regular rhythm Heart Sounds: gallop, murmur and rub GI Palpation: soft and nontender Auscultation: normal bowel sounds Other: alexander in place. No edema Objective Objective Clinical Data: Abnormal lab results 11/06/19 11/07/19 11/07/19 Range/Units 14:03 06:35 06:35 WBC 4.15 L (4.4-10.8) 10^3/uL RBC 3.32 L 3.23 L (4.36-5.78) 10^6/uL Hgb 9.9 L 9.4 L (13.5-17.5) g/dL Hct 30.5 L 29.3 L (40.0-50.0) % RDW 15.1 H 15.1 H (11.8-14.1) % Plt Count 116 L 107 L (130-400) 10^3/uL Absolute Lymphocytes 0.74 L 0.70 L (1.2-3.4) 10^3/uL Chloride 111 H (98-107) mmol/L Glucose 116 H (74-106) mg/dL Calcium 8.1 L (8.5-10.1) mg/dL Magnesium 1.7 L (1.8-2.4) mg/dL Vital Signs Temperature 98.6 F 11/07/19 09:00 Temperature Source Temporal Artery Scan 11/07/19 09:00 Pulse 89 11/07/19 09:00 Pulse Rhythm Regular 11/04/19 16:26 Pulse 82 11/07/19 08:01 Respiratory Rate 18 11/07/19 09:00 Respiratory Effort 11/07/19 09:00 Respiratory Depth Normal 11/07/19 09:00 Respiratory Pattern Normal 11/07/19 09:00 Blood Pressure 156/78 H 11/07/19 09:00 Blood Pressure Mean 88 11/07/19 08:01 Blood Pressure Position Supine 11/07/19 04:50 Pulse Oximetry 91 L 11/07/19 09:00 Respiratory End-tidal CO2 24 11/06/19 11:11 Oxygen Delivery Method Room Air 11/07/19 09:00 Oxygen Flow Rate 0 11/07/19 09:00 Fraction of Inspired Oxygen (FIO2) 34 11/07/19 07:45 Pain Level 0 11/07/19 09:00 Intake & Output 11/06/19 11/06/19 11/07/19 11:59 23:59 11:59 Intake Total 1431.369 / 4158.202 2726.833 / 4158.202 968.334 / 968.334 Output Total 570 / 2690 2120 / 2690 950 / 950 Balance 861.369 / 1468.202 606.833 / 1468.202 18.334 / 18.334 Weight 218 lb 4.122 oz Intake: IV 1371.369 / 2874.202 1502.833 / 2874.202 968.334 / 968.334 Oral 60 / 1284 1224 / 1284 Output: Chest Tube Drainage 170 / 290 120 / 290 50 / 50 Urine 400 / 2000 1600 / 2000 900 / 900 Stool 400 / 400 Other: Urine Color Straw Yellow Straw Urine Appearance Clear Clear Cloudy Urine Odor Normal Comment Alexander catheter intact and draining clear yellow urine. Alexander catheter intact and draining clear yellow urine. Alexander catheter intact and draining clear yellow urine. Stool Occult Blood Negative Stool Size Moderate Stool Characteristics Liquid Voiding Methods Indwelling Catheter Laboratory Results WBC 4.15 10^3/uL (4.4-10.8) L 11/07/19 06:35 RBC 3.23 10^6/uL (4.36-5.78) L 11/07/19 06:35 Hgb 9.4 g/dL (13.5-17.5) L 11/07/19 06:35 Hct 29.3 % (40.0-50.0) L 11/07/19 06:35 MCV 90.7 fL (80-95) 11/07/19 06:35 MCH 29.1 pg (27.0-33.0) 11/07/19 06:35 MCHC 32.1 % (32.0-36.0) 11/07/19 06:35 RDW 15.1 % (11.8-14.1) H 11/07/19 06:35 Plt Count 107 10^3/uL (130-400) L 11/07/19 06:35 MPV 9.4 fL (8.0-11.0) 11/07/19 06:35 Immature Gran % 0.5 11/07/19 06:35 Neutrophils % 64.3 11/07/19 06:35 Lymphocytes % 16.9 11/07/19 06:35 Monocytes % 14.7 11/07/19 06:35 Eosinophils % 3.1 11/07/19 06:35 Basophils % 0.5 11/07/19 06:35 Absolute Neutrophils 2.67 10^3/uL (1.2-6.7) 11/07/19 06:35 Absolute Lymphocytes 0.70 10^3/uL (1.2-3.4) L 11/07/19 06:35 Absolute Monocytes 0.61 10^3/uL (0.1-0.8) 11/07/19 06:35 Absolute Eosinophils 0.13 10^3/uL (0.0-0.7) 11/07/19 06:35 Absolute Basophils 0.02 10^3/uL (0.0-0.2) 11/07/19 06:35 PT 11.6 sec (9.3-11.0) H 11/06/19 05:00 INR 1.2 (0.9-1.1) H 11/06/19 05:00 ABG Sample Site Right radial 11/05/19 22:40 ABG pH 7.32 (7.35-7.45) L 11/05/19 22:40 ABG pCO2 37 mmHg (34-47) 11/05/19 22:40 ABG pO2 79 mmHg (83-108) L 11/05/19 22:40 ABG HCO3 19 mmol/L (22-28) L 11/05/19 22:40 ABG Total CO2 18 mmol/L (22-29) L 11/05/19 22:40 ABG O2 Saturation 97 % (94-98) 11/05/19 22:40 ABG Base Excess -6.9 mmol/L (-3-3) L 11/05/19 22:40 Oxygen Liter Flow 15/3 L 11/05/19 22:40 FiO2 24 % 11/05/19 22:40 Sodium 141 mmol/L (136-145) 11/07/19 06:35 Potassium 3.6 mmol/L (3.5-5.1) 11/07/19 06:35 Chloride 111 mmol/L (98-107) H 11/07/19 06:35 Carbon Dioxide 22.8 mmol/L (21.0-32.0) 11/07/19 06:35 Anion Gap 7.2 mmol/L (3-11) 11/07/19 06:35 BUN 16 mg/dL (7-18) D 11/07/19 06:35 Creatinine 0.73 mg/dL (0.70-1.30) 11/07/19 06:35 Estimated GFR/1.73 m2 >= 60.00 (mL/min/1.73m2) 11/07/19 06:35 Glucose 116 mg/dL (74-106) H 11/07/19 06:35 Calcium 8.1 mg/dL (8.5-10.1) L 11/07/19 06:35 Magnesium 1.7 mg/dL (1.8-2.4) L 11/07/19 06:35 Total Bilirubin 0.9 mg/dL (0.2-1.0) 11/06/19 05:00 GGT 28 U/L (15-85) 11/05/19 12:10 AST 23 U/L (15-37) 11/06/19 05:00 ALT 22 U/L (16-63) 11/06/19 05:00 Alkaline Phosphatase 55 U/L (46-116) 11/06/19 05:00 Ammonia 47 umol/L (11-32) H 11/06/19 05:00 Total Protein 5.0 g/dL (6.4-8.2) L 11/06/19 05:00 Albumin 2.2 g/dL (3.4-5.0) L 11/06/19 05:00 Urine Color Treva (Yellow) 11/04/19 18:57 Urine Clarity Clear (Clear) 11/04/19 18:57 Urine pH 5.0 (5-8) 11/04/19 18:57 Ur Specific [place] 1.025 (1.005-1.025) 11/04/19 18:57 Urine Protein Negative mg/dL (Negative) 11/04/19 18:57 Urine Ketones Negative mg/dL (Negative) 11/04/19 18:57 Urine Blood Negative (Negative) 11/04/19 18:57 Urine Nitrite Negative (Negative) 11/04/19 18:57 Urine Bilirubin Negative (Negative) 11/04/19 18:57 Urine Urobilinogen 0.2 EU/dL (Up TO 0.2) 11/04/19 18:57 Ur Leukocyte Esterase Negative (Negative) 11/04/19 18:57 Urine Glucose 500 mg/dL (Negative) H 11/04/19 18:57 Patient ABO/Rh A Positive 11/05/19 23:05 Antibody Screen Positive 11/05/19 23:05 Antibody Identification Anti-E Anti-c 11/05/19 23:05 Antibody Identification Anti-E Anti-c 11/05/19 23:05
--- NOTE | 2019-11-07 10:48 | W.PM.PROGNOT ---
Date of Service Date of service: 11/07/19 Time of Service: 10:48 Assessment and Plan Assessment and plan (1) Hepatic encephalopathy: Status: Acute Assessment and plan: Lactulose been decreased to 3 times a day. Patient is having multiple stools. Goal is to have 3 soft semi-formed stools per day. Continue with rifaximin at current dose. (2) Fracture of rib of left side: Status: Acute Assessment and plan: Non-operative management as above. Encourage IS once able to cooperate. Continue with pain management as per anesthesia. Currently receiving ropivacaine along with fentanyl per his epidural catheter Qualifiers: Encounter type: initial encounter Rib fracture type: multiple ribs Fracture type: closed Qualified Code(s): S22.42XA - Multiple fractures of ribs, left side, initial encounter for closed fracture (3) Fracture of left clavicle: Status: Acute Assessment and plan: Non-operative management, per ortho. Continue sling for comfort Qualifiers: Encounter type: initial encounter Clavicle location: unspecified part of clavicle Fracture type: closed Fracture alignment: nondisplaced Qualified Code(s): S42.002A - Fracture of unspecified part of left clavicle, initial encounter for closed fracture (4) Pneumothorax: Status: Acute Assessment and plan: Chest tube is now waterseal. Chest x-ray shows no residual pneumothorax. If this remains stable over the next [address] Jones plans on removing the chest tube. Qualifiers: Pneumothorax type: traumatic Encounter type: initial encounter Qualified Code(s): S27.0XXA - Traumatic pneumothorax, initial encounter (5) Cirrhosis: Status: Chronic Assessment and plan: Due to EtOH abuse in the past as well as hepatitis C. S/p TIPS procedure. Has a h/o esophageal varices/bleeding, hepatic encephalopathy. Follows with [facility] [place]. Avoid NSAIDs. continue Rifaxamin and lactulose Qualifiers: Hepatic cirrhosis type: unspecified hepatic cirrhosis Ascites presence: without ascites Qualified Code(s): K74.60 - Unspecified cirrhosis of liver (6) CO2 narcosis: Status: Acute Assessment and plan: Continue use of BiPAP at night or whenever he is sleeping. Patient should have a sleep study upon discharge from the hospital Subjective Subjective Interval history since last seen: Patient is improving. He remains encephalopathic but is becoming more oriented. He knows he is in [facility] but was off on the month thinking that it is September rather than October. He did not know the day of the month or the day of the week and he was off on his year thinking it was 2021 rather than 2019. He did not require Precedex overnight to keep him calm. This morning his nurse has been working with him is been able to loosen his restraints to give him more movement with his hands. She still has concerns that he may reach for his chest tube or his Rosario catheter and pull those out although at the present time he is agreeable to not pull out his tubes. He readily falls back to sleep but is able to be awakened. He remains on a epidural drip with fentanyl and ropivacaine. He is receiving fentanyl at 20 mcg/h. This seems to be controlling his rib pain. Exam Narrative Exam Narrative: Patient is somnolent but easily awakened. Oriented to person and place but not to time he is oriented to his circumstances. Chest wall with market amount of bruising over the left anterior and lateral chest wall. Chest tube is in place in the left superior anterior thorax. Chest tube is been placed to waterseal. Lungs are clear to auscultation on the right however on the left he has market diminished breath sounds over the left lower lung field. Heart is regular rate and rhythm with a soft systolic murmur over the apex no thrill heave or gallop. Abdomen is obese soft nontender with normal active bowel sounds. Extremities without peripheral cyanosis or edema. Objective Objective Clinical Data: Abnormal lab results 11/06/19 11/07/19 11/07/19 Range/Units 14:03 06:35 06:35 WBC 4.15 L (4.4-10.8) 10^3/uL RBC 3.32 L 3.23 L (4.36-5.78) 10^6/uL Hgb 9.9 L 9.4 L (13.5-17.5) g/dL Hct 30.5 L 29.3 L (40.0-50.0) % RDW 15.1 H 15.1 H (11.8-14.1) % Plt Count 116 L 107 L (130-400) 10^3/uL Absolute Lymphocytes 0.74 L 0.70 L (1.2-3.4) 10^3/uL Chloride 111 H (98-107) mmol/L Glucose 116 H (74-106) mg/dL Calcium 8.1 L (8.5-10.1) mg/dL Magnesium 1.7 L (1.8-2.4) mg/dL Vital Signs Temperature 37 C 11/07/19 10:00 Temperature Source Temporal Artery Scan 11/07/19 10:00 Pulse 91 H 11/07/19 10:01 Pulse Rhythm Regular 11/04/19 16:26 Pulse 90 11/07/19 10:01 Respiratory Rate 18 11/07/19 10:01 Respiratory Effort 11/07/19 10:00 Respiratory Depth Normal 11/07/19 09:00 Respiratory Pattern Normal 11/07/19 09:00 Blood Pressure 152/63 H 11/07/19 10:01 Blood Pressure Mean 87 11/07/19 10:01 Blood Pressure Position Supine 11/07/19 04:50 Pulse Oximetry 91 L 11/07/19 09:00 Respiratory End-tidal CO2 24 11/06/19 11:11 Oxygen Delivery Method Room Air 11/07/19 09:00 Oxygen Flow Rate 0 11/07/19 09:00 Fraction of Inspired Oxygen (FIO2) 34 11/07/19 07:45 Pain Level 0 11/07/19 09:00 Intake & Output 11/06/19 11/06/19 11/07/19 11:59 23:59 11:59 Intake Total 1431.369 / 4158.202 2726.833 / 4158.202 968.334 / 968.334 Output Total 570 / 2690 2120 / 2690 950 / 950 Balance 861.369 / 1468.202 606.833 / 1468.202 18.334 / 18.334 Weight 99 kg Intake: IV 1371.369 / 2874.202 1502.833 / 2874.202 968.334 / 968.334 Oral 60 / 1284 1224 / 1284 Output: Chest Tube Drainage 170 / 290 120 / 290 50 / 50 Urine 400 / 2000 1600 / 2000 900 / 900 Stool 400 / 400 Other: Urine Color Straw Yellow Straw Urine Appearance Clear Clear Cloudy Urine Odor Normal Comment Rosario catheter intact and draining clear yellow urine. Rosario catheter intact and draining clear yellow urine. Rosario catheter intact and draining clear yellow urine. Stool Occult Blood Negative Stool Size Moderate Stool Characteristics Liquid Voiding Methods Indwelling Catheter Laboratory Results WBC 4.15 10^3/uL (4.4-10.8) L 11/07/19 06:35 RBC 3.23 10^6/uL (4.36-5.78) L 11/07/19 06:35 Hgb 9.4 g/dL (13.5-17.5) L 11/07/19 06:35 Hct 29.3 % (40.0-50.0) L 11/07/19 06:35 MCV 90.7 fL (80-95) 11/07/19 06:35 MCH 29.1 pg (27.0-33.0) 11/07/19 06:35 MCHC 32.1 % (32.0-36.0) 11/07/19 06:35 RDW 15.1 % (11.8-14.1) H 11/07/19 06:35 Plt Count 107 10^3/uL (130-400) L 11/07/19 06:35 MPV 9.4 fL (8.0-11.0) 11/07/19 06:35 Immature Gran % 0.5 11/07/19 06:35 Neutrophils % 64.3 11/07/19 06:35 Lymphocytes % 16.9 11/07/19 06:35 Monocytes % 14.7 11/07/19 06:35 Eosinophils % 3.1 11/07/19 06:35 Basophils % 0.5 11/07/19 06:35 Absolute Neutrophils 2.67 10^3/uL (1.2-6.7) 11/07/19 06:35 Absolute Lymphocytes 0.70 10^3/uL (1.2-3.4) L 11/07/19 06:35 Absolute Monocytes 0.61 10^3/uL (0.1-0.8) 11/07/19 06:35 Absolute Eosinophils 0.13 10^3/uL (0.0-0.7) 11/07/19 06:35 Absolute Basophils 0.02 10^3/uL (0.0-0.2) 11/07/19 06:35 PT 11.6 sec (9.3-11.0) H 11/06/19 05:00 INR 1.2 (0.9-1.1) H 11/06/19 05:00 ABG Sample Site Right radial 11/05/19 22:40 ABG pH 7.32 (7.35-7.45) L 11/05/19 22:40 ABG pCO2 37 mmHg (34-47) 11/05/19 22:40 ABG pO2 79 mmHg (83-108) L 11/05/19 22:40 ABG HCO3 19 mmol/L (22-28) L 11/05/19 22:40 ABG Total CO2 18 mmol/L (22-29) L 11/05/19 22:40 ABG O2 Saturation 97 % (94-98) 11/05/19 22:40 ABG Base Excess -6.9 mmol/L (-3-3) L 11/05/19 22:40 Oxygen Liter Flow 15/3 L 11/05/19 22:40 FiO2 24 % 11/05/19 22:40 Sodium 141 mmol/L (136-145) 11/07/19 06:35 Potassium 3.6 mmol/L (3.5-5.1) 11/07/19 06:35 Chloride 111 mmol/L (98-107) H 11/07/19 06:35 Carbon Dioxide 22.8 mmol/L (21.0-32.0) 11/07/19 06:35 Anion Gap 7.2 mmol/L (3-11) 11/07/19 06:35 BUN 16 mg/dL (7-18) D 11/07/19 06:35 Creatinine 0.73 mg/dL (0.70-1.30) 11/07/19 06:35 Estimated GFR/1.73 m2 >= 60.00 (mL/min/1.73m2) 11/07/19 06:35 Glucose 116 mg/dL (74-106) H 11/07/19 06:35 Calcium 8.1 mg/dL (8.5-10.1) L 11/07/19 06:35 Magnesium 1.7 mg/dL (1.8-2.4) L 11/07/19 06:35 Total Bilirubin 0.9 mg/dL (0.2-1.0) 11/06/19 05:00 GGT 28 U/L (15-85) 11/05/19 12:10 AST 23 U/L (15-37) 11/06/19 05:00 ALT 22 U/L (16-63) 11/06/19 05:00 Alkaline Phosphatase 55 U/L (46-116) 11/06/19 05:00 Ammonia 47 umol/L (11-32) H 11/06/19 05:00 Total Protein 5.0 g/dL (6.4-8.2) L 11/06/19 05:00 Albumin 2.2 g/dL (3.4-5.0) L 11/06/19 05:00 Urine Color Treva (Yellow) 11/04/19 18:57 Urine Clarity Clear (Clear) 11/04/19 18:57 Urine pH 5.0 (5-8) 11/04/19 18:57 Ur Specific [place] 1.025 (1.005-1.025) 11/04/19 18:57 Urine Protein Negative mg/dL (Negative) 11/04/19 18:57 Urine Ketones Negative mg/dL (Negative) 11/04/19 18:57 Urine Blood Negative (Negative) 11/04/19 18:57 Urine Nitrite Negative (Negative) 11/04/19 18:57 Urine Bilirubin Negative (Negative) 11/04/19 18:57 Urine Urobilinogen 0.2 EU/dL (Up TO 0.2) 11/04/19 18:57 Ur Leukocyte Esterase Negative (Negative) 11/04/19 18:57 Urine Glucose 500 mg/dL (Negative) H 11/04/19 18:57 Patient ABO/Rh A Positive 11/05/19 23:05 Antibody Screen Positive 11/05/19 23:05 Antibody Identification Anti-E Anti-c 11/05/19 23:05 Antibody Identification Anti-E Anti-c 11/05/19 23:05 Reviewed Pertinent PMH: Yes Objective Narrative Objective Narrative: EXAM: XR PORTABLE CHEST AP CLINICAL HISTORY: Chest tube, pneumothorax TECHNIQUE: 2D digital imaging was performed. COMPARISON: CR,XR XR PORTABLE CHEST AP from 11/06/2019 FINDINGS: Left-sided chest catheter is unchanged in position. Left rib fractures are again noted. No pneumothorax is visible. The PICC line present. IMPRESSION: No significant change in appearance of the chest. No pneumothorax is visible.
--- NOTE | 2019-11-07 12:21 | PDOC.ANES ---
Date of service: 11/07/19 Time of Service: 12:21 Anesthesia Note Report Anesthesia Note: Epidural Daily Management Note: Dong is easily aroused in bed and is much more communicative and clear today asking appropriate questions now but unaware of why he is here. He is able to use his left arm to adjust his position in bed and help turn to the side. Epidural dressing intact, catheter depth is at 10cm at skin, site intact without noted leak. Epidural 0.1% Ropivacaine with Fentanyl 2mcg/ml infusing at 10ml/hr with 5ml PCEA bolus dose. He states he has no pain. He is much improved compared to when we placed his epidural. Recommend to continue infusion for now as he is on Epidural Day 2.
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
--- NOTE | 2019-11-07 14:18 | W.PM.PROGNOT ---
Date of Service Date of service: 11/07/19 Time of Service: 14:19 Assessment and Plan Assessment and plan (1) Hepatic encephalopathy: Status: Acute Assessment and plan: Seems to be improving. He is more alert and not combative. Continue to monitor (2) CO2 narcosis: Status: Acute Assessment and plan: CPAP as needed (3) Pneumothorax: Status: Acute Assessment and plan: CT clamped. CXR showes no recurrence of his Pneumothorax Will leave clamped and get CXR in am. If CXR shows no recurrence then will pull chest tube Qualifiers: Pneumothorax type: traumatic Encounter type: initial encounter Qualified Code(s): S27.0XXA - Traumatic pneumothorax, initial encounter (4) Fracture of rib of left side: Status: Acute Assessment and plan: Doing well. Pain seems controlled. He is not tachycardic Epidural in place but turned off due to his hypotension. Will restart if his BP comes up and he is in pain Qualifiers: Encounter type: initial encounter Rib fracture type: multiple ribs Fracture type: closed Qualified Code(s): S22.42XA - Multiple fractures of ribs, left side, initial encounter for closed fracture (5) Fracture of left clavicle: Status: Acute Assessment and plan: stable Qualifiers: Encounter type: initial encounter Clavicle location: unspecified part of clavicle Fracture type: closed Fracture alignment: nondisplaced Qualified Code(s): S42.002A - Fracture of unspecified part of left clavicle, initial encounter for closed fracture (6) Cirrhosis: Status: Chronic Assessment and plan: Hep C adn ETOH abuse. GI felt it was more due to ETOH use. Pt states he is 14m sober. Qualifiers: Hepatic cirrhosis type: unspecified hepatic cirrhosis Ascites presence: without ascites Qualified Code(s): K74.60 - Unspecified cirrhosis of liver (7) Red blood cell antibody positive with compatible PRBC difficult to obtain: Status: Acute (8) Anemia: Status: Chronic Assessment and plan: stable Qualifiers: Anemia type: unspecified type Qualified Code(s): D64.9 - Anemia, unspecified (9) Hx of caloric malnutrition: Status: Acute Assessment and plan: Start a soft diet as tolerated. NO eating yet. Will encourage today. Try milk shakes (10) Sore throat: Status: Acute Assessment and plan: continue chloracept as needed Subjective Subjective Interval history since last seen: Alonzo is doing better. He is more alert. He knows place and person. He is still confused at times. I was able to talk to him and he was calm. He has been out of restraints and not pulling at his chest tube or his alexander. Exam Resp Effort & Inspection: normal respiratory effort Auscultation: clear to auscultation bilaterally and diminished lung sounds on the left Cardio Rate: regular rate Rhythm: regular rhythm Heart Sounds: gallop, murmur and rub GI Inspection: normal to inspection Palpation: soft and nontender Auscultation: normal bowel sounds Objective Objective Clinical Data: Abnormal lab results 11/06/19 11/07/19 11/07/19 Range/Units 14:03 06:35 06:35 WBC 4.15 L (4.4-10.8) 10^3/uL RBC 3.32 L 3.23 L (4.36-5.78) 10^6/uL Hgb 9.9 L 9.4 L (13.5-17.5) g/dL Hct 30.5 L 29.3 L (40.0-50.0) % RDW 15.1 H 15.1 H (11.8-14.1) % Plt Count 116 L 107 L (130-400) 10^3/uL Absolute Lymphocytes 0.74 L 0.70 L (1.2-3.4) 10^3/uL Chloride 111 H (98-107) mmol/L Glucose 116 H (74-106) mg/dL Calcium 8.1 L (8.5-10.1) mg/dL Magnesium 1.7 L (1.8-2.4) mg/dL Vital Signs Temperature 98.4 F 11/07/19 12:00 Temperature Source Temporal Artery Scan 11/07/19 12:00 Pulse 89 11/07/19 12:01 Pulse Rhythm Regular 11/04/19 16:26 Pulse 93 H 11/07/19 12:01 Respiratory Rate 15 11/07/19 12:01 Respiratory Effort 11/07/19 12:00 Respiratory Depth Normal 11/07/19 09:00 Respiratory Pattern Normal 11/07/19 09:00 Blood Pressure 165/77 H 11/07/19 12:01 Blood Pressure Mean 98 11/07/19 12:01 Blood Pressure Position Supine 11/07/19 04:50 Pulse Oximetry 91 L 11/07/19 09:00 Respiratory End-tidal CO2 24 11/06/19 11:11 Oxygen Delivery Method Room Air 11/07/19 12:00 Oxygen Flow Rate 0 11/07/19 12:00 Fraction of Inspired Oxygen (FIO2) 34 11/07/19 07:45 Pain Level 4 11/07/19 12:00 Intake & Output 11/06/19 11/07/19 11/07/19 23:59 11:59 23:59 Intake Total 2726.833 / 4158.202 968.334 / 1018.334 50 / 1018.334 Output Total 2120 / 2690 950 / 950 Balance 606.833 / 1468.202 18.334 / 68.334 50 / 68.334 Weight 218 lb 4.122 oz Intake: IV 1502.833 / 2874.202 968.334 / 1018.334 50 / 1018.334 Oral 1224 / 1284 Output: Chest Tube Drainage 120 / 290 50 / 50 Urine 1600 / 2000 900 / 900 Stool 400 / 400 Other: Urine Color Yellow Straw Urine Appearance Clear Cloudy Urine Odor Normal Comment Alexander catheter intact and draining clear yellow urine. Alexander catheter intact and draining clear yellow urine. Alexander catheter intact and draining clear yellow urine. Stool Occult Blood Negative Stool Size Moderate Stool Characteristics Liquid Voiding Methods Indwelling Catheter Laboratory Results WBC 4.15 10^3/uL (4.4-10.8) L 11/07/19 06:35 RBC 3.23 10^6/uL (4.36-5.78) L 11/07/19 06:35 Hgb 9.4 g/dL (13.5-17.5) L 11/07/19 06:35 Hct 29.3 % (40.0-50.0) L 11/07/19 06:35 MCV 90.7 fL (80-95) 11/07/19 06:35 MCH 29.1 pg (27.0-33.0) 11/07/19 06:35 MCHC 32.1 % (32.0-36.0) 11/07/19 06:35 RDW 15.1 % (11.8-14.1) H 11/07/19 06:35 Plt Count 107 10^3/uL (130-400) L 11/07/19 06:35 MPV 9.4 fL (8.0-11.0) 11/07/19 06:35 Immature Gran % 0.5 11/07/19 06:35 Neutrophils % 64.3 11/07/19 06:35 Lymphocytes % 16.9 11/07/19 06:35 Monocytes % 14.7 11/07/19 06:35 Eosinophils % 3.1 11/07/19 06:35 Basophils % 0.5 11/07/19 06:35 Absolute Neutrophils 2.67 10^3/uL (1.2-6.7) 11/07/19 06:35 Absolute Lymphocytes 0.70 10^3/uL (1.2-3.4) L 11/07/19 06:35 Absolute Monocytes 0.61 10^3/uL (0.1-0.8) 11/07/19 06:35 Absolute Eosinophils 0.13 10^3/uL (0.0-0.7) 11/07/19 06:35 Absolute Basophils 0.02 10^3/uL (0.0-0.2) 11/07/19 06:35 PT 11.6 sec (9.3-11.0) H 11/06/19 05:00 INR 1.2 (0.9-1.1) H 11/06/19 05:00 ABG Sample Site Right radial 11/05/19 22:40 ABG pH 7.32 (7.35-7.45) L 11/05/19 22:40 ABG pCO2 37 mmHg (34-47) 11/05/19 22:40 ABG pO2 79 mmHg (83-108) L 11/05/19 22:40 ABG HCO3 19 mmol/L (22-28) L 11/05/19 22:40 ABG Total CO2 18 mmol/L (22-29) L 11/05/19 22:40 ABG O2 Saturation 97 % (94-98) 11/05/19 22:40 ABG Base Excess -6.9 mmol/L (-3-3) L 11/05/19 22:40 Oxygen Liter Flow 15/3 L 11/05/19 22:40 FiO2 24 % 11/05/19 22:40 Sodium 141 mmol/L (136-145) 11/07/19 06:35 Potassium 3.6 mmol/L (3.5-5.1) 11/07/19 06:35 Chloride 111 mmol/L (98-107) H 11/07/19 06:35 Carbon Dioxide 22.8 mmol/L (21.0-32.0) 11/07/19 06:35 Anion Gap 7.2 mmol/L (3-11) 11/07/19 06:35 BUN 16 mg/dL (7-18) D 11/07/19 06:35 Creatinine 0.73 mg/dL (0.70-1.30) 11/07/19 06:35 Estimated GFR/1.73 m2 >= 60.00 (mL/min/1.73m2) 11/07/19 06:35 Glucose 116 mg/dL (74-106) H 11/07/19 06:35 Calcium 8.1 mg/dL (8.5-10.1) L 11/07/19 06:35 Magnesium 1.7 mg/dL (1.8-2.4) L 11/07/19 06:35 Total Bilirubin 0.9 mg/dL (0.2-1.0) 11/06/19 05:00 GGT 28 U/L (15-85) 11/05/19 12:10 AST 23 U/L (15-37) 11/06/19 05:00 ALT 22 U/L (16-63) 11/06/19 05:00 Alkaline Phosphatase 55 U/L (46-116) 11/06/19 05:00 Ammonia 47 umol/L (11-32) H 11/06/19 05:00 Total Protein 5.0 g/dL (6.4-8.2) L 11/06/19 05:00 Albumin 2.2 g/dL (3.4-5.0) L 11/06/19 05:00 Urine Color Treva (Yellow) 11/04/19 18:57 Urine Clarity Clear (Clear) 11/04/19 18:57 Urine pH 5.0 (5-8) 11/04/19 18:57 Ur Specific [place] 1.025 (1.005-1.025) 11/04/19 18:57 Urine Protein Negative mg/dL (Negative) 11/04/19 18:57 Urine Ketones Negative mg/dL (Negative) 11/04/19 18:57 Urine Blood Negative (Negative) 11/04/19 18:57 Urine Nitrite Negative (Negative) 11/04/19 18:57 Urine Bilirubin Negative (Negative) 11/04/19 18:57 Urine Urobilinogen 0.2 EU/dL (Up TO 0.2) 11/04/19 18:57 Ur Leukocyte Esterase Negative (Negative) 11/04/19 18:57 Urine Glucose 500 mg/dL (Negative) H 11/04/19 18:57 Patient ABO/Rh A Positive 11/05/19 23:05 Antibody Screen Positive 11/05/19 23:05 Antibody Identification Anti-E Anti-c 11/05/19 23:05 Antibody Identification Anti-E Anti-c 11/05/19 23:05
[2019-11-07] MEDS: FentaNYL/ROPIvacaine 2 mcg/ml and 0.1% 200 ML CADD Cassette EP (16:56)
[2019-11-07] MEDS: QUEtiapine 25 MG TAB PO (21:34)
[2019-11-07] MEDS: Gabapentin 300 MG CAP PO (21:34)
[2019-11-08] VITALS (57 sets, daily range): BP systolic 96–190; BP diastolic 53–106; PULSE 68–108; RESP 11–24; TEMP 36.7–37.5; O2SAT 90–100
--- NOTE | 2019-11-08 05:52 | DI.RAD_ITS ---
EXAM: XR PORTABLE CHEST AP POST LINE CLINICAL HISTORY: chest tube clamped x 24 hours,check for recurrence TECHNIQUE: 2D digital imaging was performed. COMPARISON: CR XR PORTABLE CHEST AP from 11/07/2019 FINDINGS: The left-sided chest tube remains in place. There is now a small left apical pneumothorax, new since the previous exam. There is stable increased densities at the left lung base. The lungs are not we ll inflated. PICC line is unchanged. IMPRESSION: Small left apical pneumothorax. DATA REPOSITORY: RADIATION DOSE DELIVERED:
[2019-11-08 06:25] LABS: Abs Immature Grans 0.04 10^3/uL (0.0-0.06); Absolute Basophil Count 0.02 10^3/uL (0.0-0.2); Absolute Eosinophil Count 0.12 10^3/uL (0.0-0.7); Absolute Lymphocyte Count 0.71 10^3/uL (1.2-3.4); Absolute Monocyte Count 0.53 10^3/uL (0.1-0.8); Absolute Neutrophil Count 2.47 10^3/uL (1.2-6.7); Basophils % 0.5; Eosinophils % 3.1; HCT 28.7 % (40.0-50.0); HGB 9.4 g/dL (13.5-17.5); Lymphocytes % 18.3; MCH 29.4 pg (27.0-33.0); MCHC 32.8 % (32.0-36.0); MCV 89.7 fL (80-95); MPV 9.1 fL (8.0-11.0); Monocytes % 13.6; Neutrophils % 63.5; RDW 15.1 % (11.8-14.1); RDW-SD 47.7 fL; WBC 3.89 10^3/uL (4.4-10.8)
--- NOTE | 2019-11-08 06:27 | DI.VRAD_ITS ---
PROCEDURE INFORMATION: Exam: XR Chest, 1 View Exam date and time: 11/08/2019 5:53 AM Age: 64 years old Clinical indication: Device placement; Prior surgery; Surgery type: Chest tube placement TECHNIQUE: Imaging protocol: XR of the chest Views: 1 view. COMPARISON: CR XR PORTABLE CHEST AP 11/07/2019 9:33 AM FINDINGS: Tubes, catheters and devices: Left-sided chest tube in place, similar to previous. Right PICC line with its tip in the superior vena cava. Lungs: Borderline congestive change. Suspect bilateral atelectasis, left greater than right. Relatively stable appearance. Pleural space: Small left-sided pneumothorax, new relative to most recent previous study. Less than 10% volume. No right-sided pneumothorax. No definite effusion. Heart/Mediastinum: Mild cardiomegaly. Vasculature: Aortic atherosclerotic calcification. Bones/joints: Mild degenerative changes noted throughout the spine. Multiple left rib fractures. Overriding left clavicle fracture. IMPRESSION: 1. Small left-sided pneumothorax, new relative to most recent previous study. Less than 10% volume. Left-sided chest tube remains in place. 2. Additional findings relatively stable as described above. Dictated and Authenticated by: Guille Shen MD. Ordering:DARIN Britton MD
[2019-11-08 06:31] LABS: Platelet Count 112 10^3/uL (130-400)
[2019-11-08 06:38] LABS: Ammonia 33 umol/L (11-32)
[2019-11-08 06:42] LABS: ALT 26 U/L (16-63); AST 34 U/L (15-37); Alkaline Phosphatase 64 U/L (46-116); Anion Gap 7.2 mmol/L (3-11); BUN 9 mg/dL (7-18); Bilirubin, Total 0.8 mg/dL (0.2-1.0); CO2 24.8 mmol/L (21.0-32.0); CREATININE 0.71 mg/dL (0.70-1.30); Calcium 7.8 mg/dL (8.5-10.1); Chloride 109 mmol/L (98-107); Glucose 149 mg/dL (74-106); Magnesium 1.5 mg/dL (1.8-2.4); Potassium 3.4 mmol/L (3.5-5.1); Sodium 141 mmol/L (136-145); Total Protein 4.8 g/dL (6.4-8.2)
--- NOTE | 2019-11-08 07:38 | NUR.NOTE ---
Nursing Note: RN makes request of central processing tech for [facility] dry suction chest drain.
--- NOTE | 2019-11-08 08:00 | NUR.NOTE ---
New chest tube [facility] chest tube drain is set up. Patient is boosted in bed. Old chest tube drain drained 300ml serous fluid.Nursing Note:
[2019-11-08] MEDS: Pantoprazole 40 MG VIAL IVP (08:28)
[2019-11-08] MEDS: Lactulose 20 GM/30 ML CUP PO ×3 (08:28→19:47)
--- NOTE | 2019-11-08 08:38 | PDOC.CMPRO ---
- If Service Date Differs Date of service: 11/08/19 Time of Service: 08:38 Care Management Progress Note S/O: Dong was sitting up in bed when CM met with him. His eyes were closed and he appeared to be sleeping, however was easily aroused. Dong stated that he is feeling better and that he had been out of bed. Per nursing he was OOB in a chair for 2 hours and tolerated it well. Dong is requesting that his alexander be removed. Dong states that he continues to have pain, although the medication does help. His chest tube will remain in as his chest xray revealed a new left apical pneumothorax this morning. A: Alonzo is a 64 year old man admitted on 11/04/19 with a recurrent pneumothorax P: Alonzo remains ICU level of care today. He will likely benefit from new services at discharge, although the plan is not clear at this time. CM will continue to support Alonzo and assess for discharge planning concerns.
[2019-11-08] MEDS: Rifaximin 550 MG TAB PO ×2 (08:39→19:47)
--- NOTE | 2019-11-08 08:54 | W.PM.PROGNOT ---
Date of Service Date of service: 11/08/19 Time of Service: 08:54 Assessment and Plan Assessment and plan (1) Hepatic encephalopathy: Status: Resolved Assessment and plan: Alert this morning, ammonia level decreased although not normalized. (2) CO2 narcosis: Status: Resolved Assessment and plan: CPAP as needed (3) Pneumothorax: Status: Acute Assessment and plan: Chest X ray this morning reviewed and shows 10% pneumothorax. Will return chest tube to wall suction. Qualifiers: Encounter type: initial encounter Pneumothorax type: traumatic Qualified Code(s): S27.0XXA - Traumatic pneumothorax, initial encounter (4) Fracture of rib of left side: Status: Acute Assessment and plan: Epidural in place. Qualifiers: Encounter type: initial encounter Fracture type: closed Rib fracture type: multiple ribs Qualified Code(s): S22.42XA - Multiple fractures of ribs, left side, initial encounter for closed fracture (5) Fracture of left clavicle: Status: Acute Assessment and plan: stable Qualifiers: Clavicle location: unspecified part of clavicle Encounter type: initial encounter Fracture alignment: nondisplaced Fracture type: closed Qualified Code(s): S42.002A - Fracture of unspecified part of left clavicle, initial encounter for closed fracture (6) Cirrhosis: Status: Chronic Assessment and plan: Hep C adn ETOH abuse. GI felt it was more due to ETOH use. Pt states he is 14m sober. Qualifiers: Ascites presence: without ascites Hepatic cirrhosis type: unspecified hepatic cirrhosis Qualified Code(s): K74.60 - Unspecified cirrhosis of liver (7) Red blood cell antibody positive with compatible PRBC difficult to obtain: Status: Acute (8) Anemia: Status: Chronic Assessment and plan: stable Qualifiers: Anemia type: unspecified type Qualified Code(s): D64.9 - Anemia, unspecified (9) Hx of caloric malnutrition: Status: Acute Assessment and plan: Start a soft diet as tolerated. NO eating yet. Will encourage today. Try milk shakes (10) Sore throat: Status: Acute Assessment and plan: continue chloracept as needed Subjective Subjective Interval history since last seen: Patient complains of poorly controlled pain Tolerating PO Exam Narrative Exam Narrative: Alert Chest tube with serosanguinous output and tidaling with breathing. Objective Objective Clinical Data: Abnormal lab results 11/08/19 11/08/19 11/08/19 Range/Units 06:05 06:05 06:05 WBC 3.89 L (4.4-10.8) 10^3/uL RBC 3.20 L (4.36-5.78) 10^6/uL Hgb 9.4 L (13.5-17.5) g/dL Hct 28.7 L (40.0-50.0) % RDW 15.1 H (11.8-14.1) % Plt Count 112 L (130-400) 10^3/uL Absolute Lymphocytes 0.71 L (1.2-3.4) 10^3/uL Potassium 3.4 L (3.5-5.1) mmol/L Chloride 109 H (98-107) mmol/L Glucose 149 H (74-106) mg/dL Calcium 7.8 L (8.5-10.1) mg/dL Magnesium 1.5 L (1.8-2.4) mg/dL Ammonia 33 H (11-32) umol/L Total Protein 4.8 L (6.4-8.2) g/dL Albumin 2.0 L (3.4-5.0) g/dL Vital Signs Temperature 98.2 F 11/08/19 08:28 Temperature Source Temporal Artery Scan 11/08/19 03:27 Pulse 72 11/08/19 06:41 Pulse Rhythm Regular 11/04/19 16:26 Pulse 98 H 11/07/19 20:08 Respiratory Rate 16 11/08/19 06:41 Respiratory Effort Non-Labored 11/08/19 03:27 Respiratory Depth Normal 11/08/19 03:27 Respiratory Pattern Normal 11/08/19 03:27 Blood Pressure 125/59 L 11/08/19 04:01 Blood Pressure Mean 81 11/08/19 03:27 Blood Pressure Position Supine 11/08/19 03:27 Pulse Oximetry 100 11/08/19 06:41 Respiratory End-tidal CO2 24 11/06/19 11:11 Oxygen Delivery Method Bi-pap 11/08/19 06:21 Oxygen Flow Rate 0 11/07/19 21:15 Fraction of Inspired Oxygen (FIO2) 34 11/08/19 08:22 Pain Level 7 11/08/19 08:28 Comment 11/07/19 20:35 Intake & Output 11/07/19 11/07/1911/07/20 11:59 23:59 11:59 Intake Total 968.334 / 1378.334 410 / 7096.976 6587 / 1550 Output Total 950 / 3190 2240 / 3190 810 / 810 Balance 18.334 / -1811.666 -1830 / -1811.666 740 / 740 Weight 218 lb 4.122 oz Intake: IV 968.334 / 1018.334 50 / 2257.148 2257 / 1000 Oral 360 / 360 550 / 550 Output: Chest Tube Drainage 50 / 740 690 / 740 260 / 260 Urine 900 / 2200 1300 / 2200 550 / 550 Stool 250 / 250 Other: Urine Color Straw Yellow [place] Urine Appearance Cloudy Clear Clear Comment Alexander catheter intact and draining clear yellow urine. alexander cath in place patent and draining. alexander cath in place patent and draining. Stool Occult Blood Negative Stool Size Moderate Stool Characteristics Liquid Laboratory Results WBC 3.89 10^3/uL (4.4-10.8) L 11/08/19 06:05 RBC 3.20 10^6/uL (4.36-5.78) L 11/08/19 06:05 Hgb 9.4 g/dL (13.5-17.5) L 11/08/19 06:05 Hct 28.7 % (40.0-50.0) L 11/08/19 06:05 MCV 89.7 fL (80-95) 11/08/19 06:05 MCH 29.4 pg (27.0-33.0) 11/08/19 06:05 MCHC 32.8 % (32.0-36.0) 11/08/19 06:05 RDW 15.1 % (11.8-14.1) H 11/08/19 06:05 Plt Count 112 10^3/uL (130-400) L 11/08/19 06:05 MPV 9.1 fL (8.0-11.0) 11/08/19 06:05 Immature Gran % 1.0 11/08/19 06:05 Neutrophils % 63.5 11/08/19 06:05 Lymphocytes % 18.3 11/08/19 06:05 Monocytes % 13.6 11/08/19 06:05 Eosinophils % 3.1 11/08/19 06:05 Basophils % 0.5 11/08/19 06:05 Absolute Neutrophils 2.47 10^3/uL (1.2-6.7) 11/08/19 06:05 Absolute Lymphocytes 0.71 10^3/uL (1.2-3.4) L 11/08/19 06:05 Absolute Monocytes 0.53 10^3/uL (0.1-0.8) 11/08/19 06:05 Absolute Eosinophils 0.12 10^3/uL (0.0-0.7) 11/08/19 06:05 Absolute Basophils 0.02 10^3/uL (0.0-0.2) 11/08/19 06:05 PT 11.6 sec (9.3-11.0) H 11/06/19 05:00 INR 1.2 (0.9-1.1) H 11/06/19 05:00 ABG Sample Site Right radial 11/05/19 22:40 ABG pH 7.32 (7.35-7.45) L 11/05/19 22:40 ABG pCO2 37 mmHg (34-47) 11/05/19 22:40 ABG pO2 79 mmHg (83-108) L 11/05/19 22:40 ABG HCO3 19 mmol/L (22-28) L 11/05/19 22:40 ABG Total CO2 18 mmol/L (22-29) L 11/05/19 22:40 ABG O2 Saturation 97 % (94-98) 11/05/19 22:40 ABG Base Excess -6.9 mmol/L (-3-3) L 11/05/19 22:40 Oxygen Liter Flow 15/3 L 11/05/19 22:40 FiO2 24 % 11/05/19 22:40 Sodium 141 mmol/L (136-145) 11/08/19 06:05 Potassium 3.4 mmol/L (3.5-5.1) L 11/08/19 06:05 Chloride 109 mmol/L (98-107) H 11/08/19 06:05 Carbon Dioxide 24.8 mmol/L (21.0-32.0) 11/08/19 06:05 Anion Gap 7.2 mmol/L (3-11) 11/08/19 06:05 BUN 9 mg/dL (7-18) D 11/08/19 06:05 Creatinine 0.71 mg/dL (0.70-1.30) 11/08/19 06:05 Estimated GFR/1.73 m2 >= 60.00 (mL/min/1.73m2) 11/08/19 06:05 Glucose 149 mg/dL (74-106) H 11/08/19 06:05 Calcium 7.8 mg/dL (8.5-10.1) L 11/08/19 06:05 Magnesium 1.5 mg/dL (1.8-2.4) L 11/08/19 06:05 Total Bilirubin 0.8 mg/dL (0.2-1.0) 11/08/19 06:05 GGT 28 U/L (15-85) 11/05/19 12:10 AST 34 U/L (15-37) 11/08/19 06:05 ALT 26 U/L (16-63) 11/08/19 06:05 Alkaline Phosphatase 64 U/L (46-116) 11/08/19 06:05 Ammonia 33 umol/L (11-32) H 11/08/19 06:05 Total Protein 4.8 g/dL (6.4-8.2) L 11/08/19 06:05 Albumin 2.0 g/dL (3.4-5.0) L 11/08/19 06:05 Urine Color Treva (Yellow) 11/04/19 18:57 Urine Clarity Clear (Clear) 11/04/19 18:57 Urine pH 5.0 (5-8) 11/04/19 18:57 Ur Specific [place] 1.025 (1.005-1.025) 11/04/19 18:57 Urine Protein Negative mg/dL (Negative) 11/04/19 18:57 Urine Ketones Negative mg/dL (Negative) 11/04/19 18:57 Urine Blood Negative (Negative) 11/04/19 18:57 Urine Nitrite Negative (Negative) 11/04/19 18:57 Urine Bilirubin Negative (Negative) 11/04/19 18:57 Urine Urobilinogen 0.2 EU/dL (Up TO 0.2) 11/04/19 18:57 Ur Leukocyte Esterase Negative (Negative) 11/04/19 18:57 Urine Glucose 500 mg/dL (Negative) H 11/04/19 18:57 Patient ABO/Rh A Positive 11/05/19 23:05 Antibody Screen Positive 11/05/19 23:05 Antibody Identification Anti-E Anti-c 11/05/19 23:05 Antibody Identification Anti-E Anti-c 11/05/19 23:05
[2019-11-08] MEDS: FentaNYL/ROPIvacaine 2 mcg/ml and 0.1% 200 ML CADD Cassette EP (11:13)
--- NOTE | 2019-11-08 11:14 | NUR.NOTE ---
Nursing Note: web content manager speaks with patient.
--- NOTE | 2019-11-08 11:37 | NUR.NOTE ---
CADD pump has not been cleared for 2 cartridge infusions making knowing how many attempts and doses given impossible to know. RN will pass on to oncoming shift importance of documenting same and the need for two nurses to take this information off pump.Nursing Note:
--- NOTE | 2019-11-08 12:13 | W.PM.PROGNOT ---
Date of Service Date of service: 11/08/19 Time of Service: 12:14 Assessment and Plan Assessment and plan (1) Hepatic encephalopathy: Status: Acute Assessment and plan: Improving. Ammonia levels down to 33. Patient having moderate liquid stools. His encephalopathy seems to be clearing. His restraints have been discontinued. We are going to discontinue his Alexander catheter.Continue with rifaximin. Lactulose is been given at 20 g 3 times daily. I think this can be decreased to twice a day. (2) Fracture of rib of left side: Status: Acute Assessment and plan: Non-operative management as above. Encourage IS once able to cooperate. Continue with pain management as per anesthesia. Currently receiving ropivacaine along with fentanyl per his epidural catheter Qualifiers: Encounter type: initial encounter Rib fracture type: multiple ribs Fracture type: closed Qualified Code(s): S22.42XA - Multiple fractures of ribs, left side, initial encounter for closed fracture (3) Fracture of left clavicle: Status: Acute Assessment and plan: Non-operative management, per ortho. Continue sling for comfort Qualifiers: Encounter type: initial encounter Clavicle location: unspecified part of clavicle Fracture type: closed Fracture alignment: nondisplaced Qualified Code(s): S42.002A - Fracture of unspecified part of left clavicle, initial encounter for closed fracture (4) Pneumothorax: Status: Acute Assessment and plan: Repeat chest x-ray this morning demonstrated residual pneumothorax on the left side of less than 10% volume. Chest tube is been resumed to low suction Qualifiers: Pneumothorax type: traumatic Encounter type: initial encounter Qualified Code(s): S27.0XXA - Traumatic pneumothorax, initial encounter (5) Cirrhosis: Status: Chronic Assessment and plan: Due to EtOH abuse in the past as well as hepatitis C. S/p TIPS procedure. Has a h/o esophageal varices/bleeding, hepatic encephalopathy. Follows with [facility] [place]. Avoid NSAIDs. continue Rifaxamin and lactulose Qualifiers: Hepatic cirrhosis type: unspecified hepatic cirrhosis Ascites presence: without ascites Qualified Code(s): K74.60 - Unspecified cirrhosis of liver (6) CO2 narcosis: Status: Resolved Assessment and plan: Continue use of BiPAP at night or whenever he is sleeping. Patient should have a sleep study upon discharge from the hospital Subjective Subjective Interval history since last seen: Patient's cognitive function has improved significantly. I think his hepatic encephalopathy is clearing. He knows he is in the hospital in [facility] and is aware of the month as well as the day of the month and the year. He knows the circumstances that led up to his hospitalization. His only complaint is he would like his Alexander catheter out. He still having moderate left-sided chest wall pain with coughing and deep breathing. Exam Narrative Exam Narrative: Alert and oriented person place time circumstance. No tremors and no asterixis. Chest with large amount of bruising over left chest wall. Diminished breath sounds at left lung base. Right side is clear to auscultation. Heart is regular rate and rhythm with a systolic murmur. Abdomen soft and nontender. Objective Objective Clinical Data: Abnormal lab results 11/08/19 11/08/19 11/08/19 Range/Units 06:05 06:05 06:05 WBC 3.89 L (4.4-10.8) 10^3/uL RBC 3.20 L (4.36-5.78) 10^6/uL Hgb 9.4 L (13.5-17.5) g/dL Hct 28.7 L (40.0-50.0) % RDW 15.1 H (11.8-14.1) % Plt Count 112 L (130-400) 10^3/uL Absolute Lymphocytes 0.71 L (1.2-3.4) 10^3/uL Potassium 3.4 L (3.5-5.1) mmol/L Chloride 109 H (98-107) mmol/L Glucose 149 H (74-106) mg/dL Calcium 7.8 L (8.5-10.1) mg/dL Magnesium 1.5 L (1.8-2.4) mg/dL Ammonia 33 H (11-32) umol/L Total Protein 4.8 L (6.4-8.2) g/dL Albumin 2.0 L (3.4-5.0) g/dL Vital Signs Temperature 37.2 C 11/08/19 11:17 Temperature Source Temporal Artery Scan 11/08/19 09:56 Pulse 84 11/08/19 11:17 Pulse Rhythm Regular 11/04/19 16:26 Pulse 90 11/08/19 10:01 Respiratory Rate 14 11/08/19 11:17 Respiratory Effort 11/08/19 09:56 Respiratory Depth Normal 11/08/19 03:27 Respiratory Pattern Normal 11/08/19 09:56 Blood Pressure 132/73 11/08/19 11:17 Blood Pressure Mean 72 11/08/19 10:00 Blood Pressure Position Supine 11/08/19 09:56 Pulse Oximetry 95 11/08/19 11:17 Respiratory End-tidal CO2 24 11/06/19 11:11 Oxygen Delivery Method Room Air 11/08/19 11:17 Oxygen Flow Rate 0 11/08/19 11:17 Fraction of Inspired Oxygen (FIO2) 34 11/08/19 08:22 Pain Level 4 11/08/19 11:17 Comment 11/07/19 20:35 Intake & Output 11/07/19 11/08/19 11/08/19 23:59 11:59 23:59 Intake Total 410 / 5681.992 0749 / 1670 Output Total 2240 / 3190 950 / 950 Balance -1830 / -1811.666 720 / 720 Intake: IV 50 / 4376.431 8342 / 1000 Oral 360 / 360 670 / 670 Output: Chest Tube Drainage 690 / 740 400 / 400 Urine 1300 / 2200 550 / 550 Stool 250 / 250 Other: Urine Color Yellow Mclean Urine Appearance Clear Clear Comment alexander cath in place patent and draining. Patient's alexander catheter is draining adequate amounts of yellow urine Stool Occult Blood Negative Stool Size Moderate Stool Characteristics Liquid Laboratory Results WBC 3.89 10^3/uL (4.4-10.8) L 11/08/19 06:05 RBC 3.20 10^6/uL (4.36-5.78) L 11/08/19 06:05 Hgb 9.4 g/dL (13.5-17.5) L 11/08/19 06:05 Hct 28.7 % (40.0-50.0) L 11/08/19 06:05 MCV 89.7 fL (80-95) 11/08/19 06:05 MCH 29.4 pg (27.0-33.0) 11/08/19 06:05 MCHC 32.8 % (32.0-36.0) 11/08/19 06:05 RDW 15.1 % (11.8-14.1) H 11/08/19 06:05 Plt Count 112 10^3/uL (130-400) L 11/08/19 06:05 MPV 9.1 fL (8.0-11.0) 11/08/19 06:05 Immature Gran % 1.0 11/08/19 06:05 Neutrophils % 63.5 11/08/19 06:05 Lymphocytes % 18.3 11/08/19 06:05 Monocytes % 13.6 11/08/19 06:05 Eosinophils % 3.1 11/08/19 06:05 Basophils % 0.5 11/08/19 06:05 Absolute Neutrophils 2.47 10^3/uL (1.2-6.7) 11/08/19 06:05 Absolute Lymphocytes 0.71 10^3/uL (1.2-3.4) L 11/08/19 06:05 Absolute Monocytes 0.53 10^3/uL (0.1-0.8) 11/08/19 06:05 Absolute Eosinophils 0.12 10^3/uL (0.0-0.7) 11/08/19 06:05 Absolute Basophils 0.02 10^3/uL (0.0-0.2) 11/08/19 06:05 PT 11.6 sec (9.3-11.0) H 11/06/19 05:00 INR 1.2 (0.9-1.1) H 11/06/19 05:00 ABG Sample Site Right radial 11/05/19 22:40 ABG pH 7.32 (7.35-7.45) L 11/05/19 22:40 ABG pCO2 37 mmHg (34-47) 11/05/19 22:40 ABG pO2 79 mmHg (83-108) L 11/05/19 22:40 ABG HCO3 19 mmol/L (22-28) L 11/05/19 22:40 ABG Total CO2 18 mmol/L (22-29) L 11/05/19 22:40 ABG O2 Saturation 97 % (94-98) 11/05/19 22:40 ABG Base Excess -6.9 mmol/L (-3-3) L 11/05/19 22:40 Oxygen Liter Flow 15/3 L 11/05/19 22:40 FiO2 24 % 11/05/19 22:40 Sodium 141 mmol/L (136-145) 11/08/19 06:05 Potassium 3.4 mmol/L (3.5-5.1) L 11/08/19 06:05 Chloride 109 mmol/L (98-107) H 11/08/19 06:05 Carbon Dioxide 24.8 mmol/L (21.0-32.0) 11/08/19 06:05 Anion Gap 7.2 mmol/L (3-11) 11/08/19 06:05 BUN 9 mg/dL (7-18) D 11/08/19 06:05 Creatinine 0.71 mg/dL (0.70-1.30) 11/08/19 06:05 Estimated GFR/1.73 m2 >= 60.00 (mL/min/1.73m2) 11/08/19 06:05 Glucose 149 mg/dL (74-106) H 11/08/19 06:05 Calcium 7.8 mg/dL (8.5-10.1) L 11/08/19 06:05 Magnesium 1.5 mg/dL (1.8-2.4) L 11/08/19 06:05 Total Bilirubin 0.8 mg/dL (0.2-1.0) 11/08/19 06:05 GGT 28 U/L (15-85) 11/05/19 12:10 AST 34 U/L (15-37) 11/08/19 06:05 ALT 26 U/L (16-63) 11/08/19 06:05 Alkaline Phosphatase 64 U/L (46-116) 11/08/19 06:05 Ammonia 33 umol/L (11-32) H 11/08/19 06:05 Total Protein 4.8 g/dL (6.4-8.2) L 11/08/19 06:05 Albumin 2.0 g/dL (3.4-5.0) L 11/08/19 06:05 Urine Color Treva (Yellow) 11/04/19 18:57 Urine Clarity Clear (Clear) 11/04/19 18:57 Urine pH 5.0 (5-8) 11/04/19 18:57 Ur Specific [place] 1.025 (1.005-1.025) 11/04/19 18:57 Urine Protein Negative mg/dL (Negative) 11/04/19 18:57 Urine Ketones Negative mg/dL (Negative) 11/04/19 18:57 Urine Blood Negative (Negative) 11/04/19 18:57 Urine Nitrite Negative (Negative) 11/04/19 18:57 Urine Bilirubin Negative (Negative) 11/04/19 18:57 Urine Urobilinogen 0.2 EU/dL (Up TO 0.2) 11/04/19 18:57 Ur Leukocyte Esterase Negative (Negative) 11/04/19 18:57 Urine Glucose 500 mg/dL (Negative) H 11/04/19 18:57 Patient ABO/Rh A Positive 11/05/19 23:05 Antibody Screen Positive 11/05/19 23:05 Antibody Identification Anti-E Anti-c 11/05/19 23:05 Antibody Identification Anti-E Anti-c 11/05/19 23:05
--- NOTE | 2019-11-08 13:03 | NUR.NOTE ---
D5/LR with 20mEQ of Potassium is dc'd.Nursing Note:
--- NOTE | 2019-11-08 13:40 | PDOC.ANES ---
Anesthesia Note Report Anesthesia Note: Epidural follow-up: Patient on exam found to be easily aroused, with good analgesia. Hemodynamically stable. RN suggested reduction in epidural rate, in turn reducing opioid dose. Rate reduced to 8 ml/hr, with rescue dose of 5 ml every 15 min. Will evaluate in AM, with goal to continuing weaning.
--- NOTE | 2019-11-08 13:54 | W.NUTCONSULT ---
Date of service: 11/08/19 Time of Service: 13:54 Nutritional Consult ASSESSMENT: Alonzo remains encephalopathic, attempted to visit with him today but he would not wake up when prompted. Has tolerated some po intake but averaging <25% of meals. Have ordered ensure plus for supplementation to po intake and calorie count. Today is day 5 of meeting <50% of energy and nutrient needs indicative of severe malnutrition in context of acute inury/illness. Has hx of malnutrition, Hepc, Etoh abuse with esophageal varices. If unable to complete at least 50% of meals in next couple of days, consider enteral support to support lean body mass, immune function. At high risk for nutritional decline. NUTRITIONAL DIAGNOSIS: severe malnutrition in context of acute illness INTERVENTION: continue regular meal plan, supplement with ensure plus TID consideer enteral nutrition support if unable to consume at least 50% of meals in next 48 hours MONITORING AND EVALUATION: weight, po intake, labs Time Spent in Nutritional Counseling and Treatment: 5 min face to face
--- NOTE | 2019-11-08 14:07 | NUR.NOTE ---
Dr. Lorenzo resets dosing on CADD pump to 10ml continuous, 5ml patient activated q. 15 minutes for a total hourly lockout of 56mcg/hr.Nursing Note:
--- NOTE | 2019-11-08 14:23 | PT.INTREAT ---
Date of service: 11/08/19 Time of Service: 11:55 PT Notes Visit Reasons: RECURRENT PTX Inpatient Physical Therapy Treatment Note [facility] Date: 11/08/2019 SUBJECTIVE: Alonzo reports that he is so tired, but sleeping helps pass his time. He indicated that he was up for 2 hours this am but would like to get back up now. Nurse reports that he has been up a few times to urinate, as his catheter was pulled this am. OBJECTIVE: [] PAIN: c/o 6/10 pain in left chest area which increased 7/10 with mvmt. BED MOBILITY/TRANSFERS Supine-sit: SBA Sit-stand: CGA] Stand-sit: SBA GAIT Assistive Device: FWW Weight bearing: FWB Assist: CGA Distance: 3 steps ASSESSMENT: does well with transfers. Is steady on feet. Held pm session per nsg, had he just back to bed and is resting. PLAN: will look to ambulate out of room tomorrow, progressing his program to tolerance following PT POC. TREATMENT CODE/TIME: 15 min in am [id number].
[2019-11-08] MEDS: Lactated Ringers 250 ML 500 ML IV (15:00)
[2019-11-08] MEDS: POTASSIUM CHLORIDE 20 MEQ/100 ML BAG 50 MEQ IVPB (16:46)
[2019-11-08] MEDS: MAGNESIUM SULFATE 4 GM/100 ML BAG IVPB (17:07)
[2019-11-08] MEDS: Potassium Chloride Liquid 20 MEQ PKT PO (19:46)
[2019-11-08] MEDS: Magnesium Oxide 400 MG TAB PO (19:47)
[2019-11-08] MEDS: Gabapentin 300 MG CAP PO (22:32)
[2019-11-08] MEDS: QUEtiapine 25 MG TAB PO (22:32)
[2019-11-09] VITALS (49 sets, daily range): BP systolic 65–158; BP diastolic 42–111; PULSE 73–92; RESP 16–20; TEMP 36.6–37.2; O2SAT 89–97
--- NOTE | 2019-11-09 03:50 | PT.INTREAT ---
Date of service: 11/09/19 PT Notes Visit Reasons: RECURRENT PTX Inpatient Physical Therapy Treatment Note [facility] Date: 11/09/2019 SUBJECTIVE: Danny initially indicated that he is still feeling the pain in his L chest and remains fatigued. He however endorses that if he can get unhooked from his lines he can walk with PT. I consulted nurse Torres who was readily willing to unhook patient from everything except for his epidural pump and his chest drainage bag. Per ICU nurse, patient is now medically [facility]. OBJECTIVE: Geernal Observation: More awake today. Chest drain, alexander catheter, patient-controlled epidural pump in place PAIN: 5-6/10 in L chest adn shoulder area BED MOBILITY/TRANSFERS Supine-sit: SBA Sit-stand: SBA Stand-sit: SBA Bed-chair: SBA Chair-bed: SBA GAIT Assistive Device: FWW Weight bearing: FWB Assist: CGA Distance: 300 feet in AM; 400 feet in PM. DEVIATION: No path deviation seen. Increased refugio. Increased steadiness. Requires minimal cueing for walker management and directional changes. THERA EX: Tolerated seated level exercises in the AM consisting of LAQs x15, seated hip flexion x15, and ankle PF/DF x10 without any difficulty nor increase in pain. In the afternoon patient also tolerated standing level exercises consisting of bilateral heel raises x 10, marching in place x 10, and partial knee bends x10 in addition to this level exercises without increasing pain. ASSESSMENT: Patient demonstrates significantly increased activity tolerance, improved pain level, and increased motivation to get better and go home as soon as he is medically cleared to do so. Patient controlled anesthesia pump was removed in the afternoon. PLAN: Progress to resistance exercise program in order to facilitate return home at independent level without any assistive device. Assess for readiness and using single-point cane and then eventually to use of assistive devices as tolerated. TREATMENT CODE/TIME: Session 1??[id number] x 25 minutes, [id number] x 10 minutes, beginning at 11:10 AM. Session 2??[id number] x 15 minutes, [id number] x 17 minutes beginning at 3:50 PM
--- NOTE | 2019-11-09 05:54 | DI.RAD_ITS ---
EXAM: XR PORTABLE CHEST AP POST LINE CLINICAL HISTORY: Left pneumothorax TECHNIQUE: 2D digital imaging was performed. COMPARISON: CR,XR XR PORTABLE CHEST AP POST LINE from 11/08/2019 FINDINGS: Left chest tube is unchanged in position. There is a small left apical pneumothorax which appears to have decreased in size slightly when compared with the previous exam. The lungs are not well inflat ed. Mildly increased densities are noted at the left lung base. The PICC line is unchanged. IMPRESSION: Decreased size left apical pneumothorax. No new abnormalities. DATA REPOSITORY: RADIATION DOSE DELIVERED:
[2019-11-09] MEDS: Normal Saline Flush 10 ML SYR IVP ×2 (06:34→07:41)
--- NOTE | 2019-11-09 06:35 | DI.VRAD_ITS ---
PROCEDURE INFORMATION: Exam: XR Chest, 1 View Exam date and time: 11/09/2019 5:55 AM Age: 64 years old Clinical indication: Device placement; Chest tube; Prior surgery TECHNIQUE: Imaging protocol: XR of the chest Views: 1 view. COMPARISON: CR XR PORTABLE CHEST AP POST LINE 11/08/2019 5:46 AM FINDINGS: Tubes, catheters and devices: Left-sided chest tube, similar to previous. Right PICC line with its tip in the superior vena cava. Lungs: Borderline congestive changes. Probable bilateral atelectasis, left greater than right. Stable appearance. No new consolidations. Pleural space: Small left sided apical pneumothorax, decreased in size relative to previous. No right-sided pneumothorax. No definite pleural effusion. Heart/Mediastinum: Mild cardiomegaly. Central vascular congestion. Vasculature: Aortic atherosclerotic calcification. Bones/joints: Degenerative changes with scoliosis within the spine. Multiple left-sided rib fractures. Overriding left clavicle fracture. IMPRESSION: 1. Small left sided apical pneumothorax, decreased in size relative to previous. Left chest tube remains in place. 2. Otherwise stable appearance of the chest. Dictated and Authenticated by: Guille Shen MD. Ordering:STEPHEN Meredith MD
[2019-11-09] MEDS: FentaNYL/ROPIvacaine 2 mcg/ml and 0.1% 200 ML CADD Cassette EP (07:10)
[2019-11-09 07:39] LABS: Abs Immature Grans 0.04 10^3/uL (0.0-0.06); Absolute Basophil Count 0.01 10^3/uL (0.0-0.2); Absolute Eosinophil Count 0.11 10^3/uL (0.0-0.7); Absolute Lymphocyte Count 0.43 10^3/uL (1.2-3.4); Absolute Monocyte Count 0.52 10^3/uL (0.1-0.8); Absolute Neutrophil Count 3.27 10^3/uL (1.2-6.7); Basophils % 0.2; Eosinophils % 2.5; HCT 28.2 % (40.0-50.0); HGB 9.5 g/dL (13.5-17.5); Immature Grans % 0.9; Lymphocytes % 9.8; MCH 29.9 pg (27.0-33.0); MCHC 33.7 % (32.0-36.0); MCV 88.7 fL (80-95); MPV 8.4 fL (8.0-11.0); Monocytes % 11.9; Neutrophils % 74.7; Platelet Count 108 10^3/uL (130-400); RBC 3.18 10^6/uL (4.36-5.78); RDW 14.8 % (11.8-14.1); RDW-SD 47.4 fL; WBC 4.38 10^3/uL (4.4-10.8)
[2019-11-09 07:56] LABS: ALT 26 U/L (16-63); AST 31 U/L (15-37); Albumin 1.9 g/dL (3.4-5.0); Alkaline Phosphatase 68 U/L (46-116); Anion Gap 6.8 mmol/L (3-11); BUN 8 mg/dL (7-18); Bilirubin, Total 0.9 mg/dL (0.2-1.0); CO2 26.2 mmol/L (21.0-32.0); CREATININE 0.64 mg/dL (0.70-1.30); Chloride 106 mmol/L (98-107); Glucose 145 mg/dL (74-106); Magnesium 1.6 mg/dL (1.8-2.4); Potassium 3.7 mmol/L (3.5-5.1); Sodium 139 mmol/L (136-145); Total Protein 4.7 g/dL (6.4-8.2)
[2019-11-09 07:57] LABS: Ammonia 51 umol/L (11-32)
--- NOTE | 2019-11-09 08:39 | CMPROGNOTE_ITS ---
- If Service Date Differs Date of service: 11/09/19 Time of Service: 08:39 Care Management Progress Note S/O: Dong was sitting up in a chair when CM met with him. He was smiling and stated that he is feeling much better. His alexander was removed yesterday and he has been out of bed ambulating in the room and sitting up in a chair. Dong's epidural has been turned off in preparation for removal later today if he tolerates it. Todays chest Xray showed slight improvement from yesterday, with a reduction in the size of the pneumothorax. A: Alonzo is a 64 year old man admitted on 11/04/19 with a recurrent pneumothorax P: Alonzo remains in the ICU today, although he may be transferred out to the Hi d-Surg Unit later today. He may benefit from new services at discharge, although the plan is not clear at this time. CM will continue to support Alonzo and assess for discharge planning concerns.
[2019-11-09] MEDS: Pantoprazole 40 MG TABCR PO (08:48)
[2019-11-09] MEDS: Magnesium Oxide 400 MG TAB PO ×2 (08:49→19:08)
[2019-11-09] MEDS: Lactulose 20 GM/30 ML CUP PO ×2 (08:49→21:51)
[2019-11-09] MEDS: Rifaximin 550 MG TAB PO ×2 (08:50→19:07)
--- NOTE | 2019-11-09 10:45 | NUR.NOTE ---
RN calls Pharmacy to obtain Nursing Note: Ayse/[place]/Bernadette loera.
--- NOTE | 2019-11-09 11:31 | W.NUTRFU ---
Date of service: 11/09/19 Time of Service: 11:31 Nutritional Follow up NOTE: Met with Alonzo today. Awake today, engaged, reports sore throat, unable to consume solids, is drinking ensure, eating custards, pudding. Will continue to provide ensure TID. Will continue to monitor po intake closely, his appetite is improving, will continue to provide soft foods/ensure TID to meet nutrient needs. Nursing aware of sore throat, likely due to esophageal varices. Time Spent in Nutritional Counseling and Treatment: 10 min spent face to face
--- NOTE | 2019-11-09 11:46 | W.PM.PROGNOT ---
Date of Service Date of service: 11/09/19 Time of Service: 11:46 Assessment and Plan Assessment and plan (1) Hepatic encephalopathy: Status: Resolved Assessment and plan: Continue rifaximin twice a day and lactulose twice a day. Goal is for 3 semi-formed bowel movements per day. (2) Fracture of rib of left side: Status: Acute Assessment and plan: Pain is well controlled with the epidural catheter however the patient would like this removed. Think he could be switched to oral analgesics. I will defer to surgical service and anesthesia service regarding the timing of discontinuation of his epidural. Qualifiers: Encounter type: initial encounter Rib fracture type: multiple ribs Fracture type: closed Qualified Code(s): S22.42XA - Multiple fractures of ribs, left side, initial encounter for closed fracture (3) Fracture of left clavicle: Status: Acute Assessment and plan: Non-operative management, per ortho. Continue sling for comfort Qualifiers: Encounter type: initial encounter Clavicle location: unspecified part of clavicle Fracture type: closed Fracture alignment: nondisplaced Qualified Code(s): S42.002A - Fracture of unspecified part of left clavicle, initial encounter for closed fracture (4) Pneumothorax: Status: Acute Assessment and plan: Repeat chest x-ray shows improvement in his left pneumothorax. Still a small residual pneumothorax at the apex. I will defer to surgery's decision about this but I think he could be placed to waterseal and monitored overnight. Qualifiers: Pneumothorax type: traumatic Encounter type: initial encounter Qualified Code(s): S27.0XXA - Traumatic pneumothorax, initial encounter (5) Cirrhosis: Status: Chronic Assessment and plan: Secondary to chronic alcohol use. He is currently been abstinent. Also has a history of hepatitis C. Patient is followed by GI service at [facility]. 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 Present time he is stable and his hepatic encephalopathy is being managed with rifaximin and lactulose. He should avoid NSAID use or Tylenol for his pain control. Qualifiers: Hepatic cirrhosis type: unspecified hepatic cirrhosis Ascites presence: without ascites Qualified Code(s): K74.60 - Unspecified cirrhosis of liver (6) CO2 narcosis: Status: Resolved Assessment and plan: Continue use of BiPAP at night or whenever he is sleeping. Patient should have a sleep study upon discharge from the hospital Subjective Subjective Interval history since last seen: Patient is doing markedly better. He is alert and oriented person place time circumstance. His acute hepatic encephalopathy has cleared with the use of rifaximin and lactulose. I have reduced his lactulose to twice a day because he was having frequent loose bowel movements. Patient states his pain is well controlled but he would like the epidural taken out today. I told him I would defer to surgery service and anesthesia service to make that decision. From medical standpoint I think he is doing well enough he can be transferred out to the medical/surgical floor with no further need for telemetry monitoring. His chest x-ray shows a small residual left apical pneumothorax. However his chest tube is still been connected to suction. Surgical service is managing his chest tube. He has been using his incentive spirometry and has gone for walks with physical therapy and nursing services. Oxygen saturations remained 92 to 96% on room air. Exam Narrative Exam Narrative: Obese male sitting up in his chair who is alert and oriented person place time circumstance. Lungs reveal bibasilar rales he has improved aeration to his left lung compared to yesterday. There is no wheezing and no rhonchi. Heart is regular rate and rhythm. Abdomen is obese soft nontender normal active bowel sounds. Extremities without peripheral cyanosis or edema. Neurologic exam is nonfocal grossly intact no motor or sensory deficits no confusion or delirium. His encephalopathy appears to have cleared. Objective Objective Clinical Data: Abnormal lab results 11/09/19 11/09/19 11/09/19 Range/Units 06:10 07:24 07:24 WBC 4.38 L (4.4-10.8) 10^3/uL RBC 3.18 L (4.36-5.78) 10^6/uL Hgb 9.5 L (13.5-17.5) g/dL Hct 28.2 L (40.0-50.0) % RDW 14.8 H (11.8-14.1) % Plt Count 108 L (130-400) 10^3/uL Absolute Lymphocytes 0.43 L (1.2-3.4) 10^3/uL Creatinine 0.64 L (0.70-1.30) mg/dL Glucose 145 H (74-106) mg/dL Calcium 8.0 L (8.5-10.1) mg/dL Magnesium 1.6 L (1.8-2.4) mg/dL Ammonia 51 H (11-32) umol/L Total Protein 4.7 L (6.4-8.2) g/dL Albumin 1.9 L (3.4-5.0) g/dL Vital Signs Temperature 36.8 C 11/09/19 11:07 Temperature Source Temporal Artery Scan 11/09/19 11:07 Pulse 76 11/09/19 11:07 Pulse Rhythm Regular 11/04/19 16:26 Pulse 96 H 11/08/19 18:02 Respiratory Rate 20 11/09/19 11:13 Respiratory Effort Non-Labored 11/09/19 07:59 Respiratory Depth Shallow 11/09/19 07:59 Respiratory Pattern Normal 11/09/19 07:59 Blood Pressure 135/59 L 11/09/19 11:07 Blood Pressure Mean 87 11/09/19 07:59 Blood Pressure Position Supine 11/09/19 07:59 Pulse Oximetry 92 L 11/09/19 11:13 Respiratory End-tidal CO2 24 11/06/19 11:11 Oxygen Delivery Method Room Air 11/09/19 11:13 Oxygen Flow Rate 0 11/09/19 11:13 Fraction of Inspired Oxygen (FIO2) 34 11/09/19 07:35 Pain Level 2 11/09/19 11:07 Comment 11/07/19 20:35 Intake & Output 11/08/19 11/08/19 11/09/19 11:59 23:59 11:59 Intake Total 1670 / 3810 2140 / 3810 Output Total 950 / 1950 1000 / 1950 1000 / 1000 Balance 720 / 1860 1140 / 1860 -1000 / -1000 Intake: IV 1000 / 2350 1350 / 2350 Oral 670 / 1460 790 / 1460 Output: Chest Tube Drainage 400 / 700 300 / 700 350 / 350 Urine 550 / 1250 700 / 1250 650 / 650 Other: Urine Color [place] Yellow Yellow Urine Appearance Clear Clear Clear Urine Odor Normal None Comment Patient's alexander catheter is draining adequate amounts of yellow urine alexander cath removed today, adequate voiding since. voiding in urinal Voiding Methods Urinal Urinal Laboratory Results WBC 4.38 10^3/uL (4.4-10.8) L 11/09/19 07:24 RBC 3.18 10^6/uL (4.36-5.78) L 11/09/19 07:24 Hgb 9.5 g/dL (13.5-17.5) L 11/09/19 07:24 Hct 28.2 % (40.0-50.0) L 11/09/19 07:24 MCV 88.7 fL (80-95) 11/09/19 07:24 MCH 29.9 pg (27.0-33.0) 11/09/19 07:24 MCHC 33.7 % (32.0-36.0) 11/09/19 07:24 RDW 14.8 % (11.8-14.1) H 11/09/19 07:24 Plt Count 108 10^3/uL (130-400) L 11/09/19 07:24 MPV 8.4 fL (8.0-11.0) 11/09/19 07:24 Immature Gran % 0.9 11/09/19 07:24 Neutrophils % 74.7 11/09/19 07:24 Lymphocytes % 9.8 11/09/19 07:24 Monocytes % 11.9 11/09/19 07:24 Eosinophils % 2.5 11/09/19 07:24 Basophils % 0.2 11/09/19 07:24 Absolute Neutrophils 3.27 10^3/uL (1.2-6.7) 11/09/19 07:24 Absolute Lymphocytes 0.43 10^3/uL (1.2-3.4) L 11/09/19 07:24 Absolute Monocytes 0.52 10^3/uL (0.1-0.8) 11/09/19 07:24 Absolute Eosinophils 0.11 10^3/uL (0.0-0.7) 11/09/19 07:24 Absolute Basophils 0.01 10^3/uL (0.0-0.2) 11/09/19 07:24 PT 11.6 sec (9.3-11.0) H 11/06/19 05:00 INR 1.2 (0.9-1.1) H 11/06/19 05:00 ABG Sample Site Right radial 11/05/19 22:40 ABG pH 7.32 (7.35-7.45) L 11/05/19 22:40 ABG pCO2 37 mmHg (34-47) 11/05/19 22:40 ABG pO2 79 mmHg (83-108) L 11/05/19 22:40 ABG HCO3 19 mmol/L (22-28) L 11/05/19 22:40 ABG Total CO2 18 mmol/L (22-29) L 11/05/19 22:40 ABG O2 Saturation 97 % (94-98) 11/05/19 22:40 ABG Base Excess -6.9 mmol/L (-3-3) L 11/05/19 22:40 Oxygen Liter Flow 15/3 L 11/05/19 22:40 FiO2 24 % 11/05/19 22:40 Sodium 139 mmol/L (136-145) 11/09/19 06:10 Potassium 3.7 mmol/L (3.5-5.1) 11/09/19 06:10 Chloride 106 mmol/L (98-107) 11/09/19 06:10 Carbon Dioxide 26.2 mmol/L (21.0-32.0) 11/09/19 06:10 Anion Gap 6.8 mmol/L (3-11) 11/09/19 06:10 BUN 8 mg/dL (7-18) 11/09/19 06:10 Creatinine 0.64 mg/dL (0.70-1.30) L 11/09/19 06:10 Estimated GFR/1.73 m2 >= 60.00 (mL/min/1.73m2) 11/09/19 06:10 Glucose 145 mg/dL (74-106) H 11/09/19 06:10 Calcium 8.0 mg/dL (8.5-10.1) L 11/09/19 06:10 Magnesium 1.6 mg/dL (1.8-2.4) L 11/09/19 06:10 Total Bilirubin 0.9 mg/dL (0.2-1.0) 11/09/19 06:10 GGT 28 U/L (15-85) 11/05/19 12:10 AST 31 U/L (15-37) 11/09/19 06:10 ALT 26 U/L (16-63) 11/09/19 06:10 Alkaline Phosphatase 68 U/L (46-116) 11/09/19 06:10 Ammonia 51 umol/L (11-32) H 11/09/19 07:24 Total Protein 4.7 g/dL (6.4-8.2) L 11/09/19 06:10 Albumin 1.9 g/dL (3.4-5.0) L 11/09/19 06:10 Urine Color Treva (Yellow) 11/04/19 18:57 Urine Clarity Clear (Clear) 11/04/19 18:57 Urine pH 5.0 (5-8) 11/04/19 18:57 Ur Specific [place] 1.025 (1.005-1.025) 11/04/19 18:57 Urine Protein Negative mg/dL (Negative) 11/04/19 18:57 Urine Ketones Negative mg/dL (Negative) 11/04/19 18:57 Urine Blood Negative (Negative) 11/04/19 18:57 Urine Nitrite Negative (Negative) 11/04/19 18:57 Urine Bilirubin Negative (Negative) 11/04/19 18:57 Urine Urobilinogen 0.2 EU/dL (Up TO 0.2) 11/04/19 18:57 Ur Leukocyte Esterase Negative (Negative) 11/04/19 18:57 Urine Glucose 500 mg/dL (Negative) H 11/04/19 18:57 Patient ABO/Rh A Positive 11/05/19 23:05 Antibody Screen Positive 11/05/19 23:05 Antibody Identification Anti-E Anti-c 11/05/19 23:05 Antibody Identification Anti-E Anti-c 11/05/19 23:05
--- NOTE | 2019-11-09 13:08 | PDOC.ANES ---
Date of service: 11/09/19 Time of Service: 13:08 Anesthesia Note Report Anesthesia Note: Epidural day 4: Remains in ICU. Currently out of bed and sitting in chair, appears comfortable. Current epidural rate 8 mL/hr. He believes that it is working for him, but he would like it out today. Discussed removing it today vs. removing it tomorrow, he would like to proceed with removal today. Plan is turn epidural off now and reassess later today to determine how he feels then remove or leave in over night.
--- NOTE | 2019-11-09 13:13 | PDOC.ANES ---
Date of service: 11/09/19 Time of Service: 15:15 Anesthesia Note Report Anesthesia Note: Pt would still like his epidural out. Discussed risk of increased pain and that I would like to take it out in the morning. He would still like it out this evening. Epidural was removed, tip intact.
--- NOTE | 2019-11-09 14:56 | W.PM.PROGNOT ---
Date of Service Date of service: 11/09/19 Time of Service: 14:57 Assessment and Plan Assessment and plan (1) Pneumothorax on left: Status: Acute Assessment and plan: CXR today shows small pneumo but improved from yesterday Will clamp chest tube, CXR in am (2) Fracture of rib of left side: Status: Acute Assessment and plan: Plan for epidural removal this afternoon Oxycodone ordered for pain control. Qualifiers: Encounter type: initial encounter Rib fracture type: multiple ribs Fracture type: closed Qualified Code(s): S22.42XA - Multiple fractures of ribs, left side, initial encounter for closed fracture Subjective Subjective Interval history since last seen: Has been walking Tolerating PO Pain control is good after an hour of having epidural turned off. Exam Narrative Exam Narrative: More alert today CT with serous output Objective Objective Clinical Data: Abnormal lab results 11/09/19 11/09/19 11/09/19 Range/Units 06:10 07:24 07:24 WBC 4.38 L (4.4-10.8) 10^3/uL RBC 3.18 L (4.36-5.78) 10^6/uL Hgb 9.5 L (13.5-17.5) g/dL Hct 28.2 L (40.0-50.0) % RDW 14.8 H (11.8-14.1) % Plt Count 108 L (130-400) 10^3/uL Absolute Lymphocytes 0.43 L (1.2-3.4) 10^3/uL Creatinine 0.64 L (0.70-1.30) mg/dL Glucose 145 H (74-106) mg/dL Calcium 8.0 L (8.5-10.1) mg/dL Magnesium 1.6 L (1.8-2.4) mg/dL Ammonia 51 H (11-32) umol/L Total Protein 4.7 L (6.4-8.2) g/dL Albumin 1.9 L (3.4-5.0) g/dL Vital Signs Temperature 97.9 F 11/09/19 13:23 Temperature Source Temporal Artery Scan 11/09/19 13:23 Pulse 77 11/09/19 14:02 Pulse Rhythm Regular 11/04/19 16:26 Pulse 86 11/09/19 14:02 Respiratory Rate 20 11/09/19 14:49 Respiratory Effort Non-Labored 11/09/19 07:59 Respiratory Depth Shallow 11/09/19 07:59 Respiratory Pattern Normal 11/09/19 07:59 Blood Pressure 143/111 H 11/09/19 14:02 Blood Pressure Mean 119 11/09/19 14:02 Blood Pressure Position Supine 11/09/19 07:59 Pulse Oximetry 95 11/09/19 14:49 Respiratory End-tidal CO2 24 11/06/19 11:11 Oxygen Delivery Method Room Air 11/09/19 14:49 Oxygen Flow Rate 0 11/09/19 14:49 Fraction of Inspired Oxygen (FIO2) 34 11/09/19 07:35 Pain Level 2 11/09/19 13:26 Comment 11/09/19 13:23 Intake & Output 11/08/19 11/09/19 11/09/19 23:59 11:59 23:59 Intake Total 2140 / 3810 240 / 240 Output Total 1000 / 1950 1000 / 1300 300 / 1300 Balance 1140 / 1860 -1000 / -1060 -60 / -1060 Intake: IV 1350 / 2350 Oral 790 / 1460 240 / 240 Output: Chest Tube Drainage 300 / 700 350 / 450 100 / 450 Urine 700 / 1250 650 / 850 200 / 850 Other: Urine Color Yellow Yellow Yellow Urine Appearance Clear Clear Clear Urine Odor Normal None None Comment alexander cath removed today, adequate voiding since. voiding in urinal Voiding Methods Urinal Urinal Urinal Laboratory Results WBC 4.38 10^3/uL (4.4-10.8) L 11/09/19 07:24 RBC 3.18 10^6/uL (4.36-5.78) L 11/09/19 07:24 Hgb 9.5 g/dL (13.5-17.5) L 11/09/19 07:24 Hct 28.2 % (40.0-50.0) L 11/09/19 07:24 MCV 88.7 fL (80-95) 11/09/19 07:24 MCH 29.9 pg (27.0-33.0) 11/09/19 07:24 MCHC 33.7 % (32.0-36.0) 11/09/19 07:24 RDW 14.8 % (11.8-14.1) H 11/09/19 07:24 Plt Count 108 10^3/uL (130-400) L 11/09/19 07:24 MPV 8.4 fL (8.0-11.0) 11/09/19 07:24 Immature Gran % 0.9 11/09/19 07:24 Neutrophils % 74.7 11/09/19 07:24 Lymphocytes % 9.8 11/09/19 07:24 Monocytes % 11.9 11/09/19 07:24 Eosinophils % 2.5 11/09/19 07:24 Basophils % 0.2 11/09/19 07:24 Absolute Neutrophils 3.27 10^3/uL (1.2-6.7) 11/09/19 07:24 Absolute Lymphocytes 0.43 10^3/uL (1.2-3.4) L 11/09/19 07:24 Absolute Monocytes 0.52 10^3/uL (0.1-0.8) 11/09/19 07:24 Absolute Eosinophils 0.11 10^3/uL (0.0-0.7) 11/09/19 07:24 Absolute Basophils 0.01 10^3/uL (0.0-0.2) 11/09/19 07:24 PT 11.6 sec (9.3-11.0) H 11/06/19 05:00 INR 1.2 (0.9-1.1) H 11/06/19 05:00 ABG Sample Site Right radial 11/05/19 22:40 ABG pH 7.32 (7.35-7.45) L 11/05/19 22:40 ABG pCO2 37 mmHg (34-47) 11/05/19 22:40 ABG pO2 79 mmHg (83-108) L 11/05/19 22:40 ABG HCO3 19 mmol/L (22-28) L 11/05/19 22:40 ABG Total CO2 18 mmol/L (22-29) L 11/05/19 22:40 ABG O2 Saturation 97 % (94-98) 11/05/19 22:40 ABG Base Excess -6.9 mmol/L (-3-3) L 11/05/19 22:40 Oxygen Liter Flow 15/3 L 11/05/19 22:40 FiO2 24 % 11/05/19 22:40 Sodium 139 mmol/L (136-145) 11/09/19 06:10 Potassium 3.7 mmol/L (3.5-5.1) 11/09/19 06:10 Chloride 106 mmol/L (98-107) 11/09/19 06:10 Carbon Dioxide 26.2 mmol/L (21.0-32.0) 11/09/19 06:10 Anion Gap 6.8 mmol/L (3-11) 11/09/19 06:10 BUN 8 mg/dL (7-18) 11/09/19 06:10 Creatinine 0.64 mg/dL (0.70-1.30) L 11/09/19 06:10 Estimated GFR/1.73 m2 >= 60.00 (mL/min/1.73m2) 11/09/19 06:10 Glucose 145 mg/dL (74-106) H 11/09/19 06:10 Calcium 8.0 mg/dL (8.5-10.1) L 11/09/19 06:10 Magnesium 1.6 mg/dL (1.8-2.4) L 11/09/19 06:10 Total Bilirubin 0.9 mg/dL (0.2-1.0) 11/09/19 06:10 GGT 28 U/L (15-85) 11/05/19 12:10 AST 31 U/L (15-37) 11/09/19 06:10 ALT 26 U/L (16-63) 11/09/19 06:10 Alkaline Phosphatase 68 U/L (46-116) 11/09/19 06:10 Ammonia 51 umol/L (11-32) H 11/09/19 07:24 Total Protein 4.7 g/dL (6.4-8.2) L 11/09/19 06:10 Albumin 1.9 g/dL (3.4-5.0) L 11/09/19 06:10 Urine Color [place] (Yellow) 11/04/19 18:57 Urine Clarity Clear (Clear) 11/04/19 18:57 Urine pH 5.0 (5-8) 11/04/19 18:57 Ur Specific [place] 1.025 (1.005-1.025) 11/04/19 18:57 Urine Protein Negative mg/dL (Negative) 11/04/19 18:57 Urine Ketones Negative mg/dL (Negative) 11/04/19 18:57 Urine Blood Negative (Negative) 11/04/19 18:57 Urine Nitrite Negative (Negative) 11/04/19 18:57 Urine Bilirubin Negative (Negative) 11/04/19 18:57 Urine Urobilinogen 0.2 EU/dL (Up TO 0.2) 11/04/19 18:57 Ur Leukocyte Esterase Negative (Negative) 11/04/19 18:57 Urine Glucose 500 mg/dL (Negative) H 11/04/19 18:57 Patient ABO/Rh A Positive 11/05/19 23:05 Antibody Screen Positive 11/05/19 23:05 Antibody Identification Anti-E Anti-c 11/05/19 23:05 Antibody Identification Anti-E Anti-c 11/05/19 23:05
[2019-11-09] MEDS: oxyCODONE 5 MG TAB PO (19:06)
[2019-11-09] MEDS: Potassium Chloride Liquid 20 MEQ PKT PO (19:08)
[2019-11-09] MEDS: Gabapentin 300 MG CAP PO (21:50)
[2019-11-09] MEDS: QUEtiapine 25 MG TAB PO (21:51)
[2019-11-10] VITALS (12 sets, daily range): BP systolic 108–131; BP diastolic 58–79; PULSE 77–90; RESP 16–19; TEMP 36.4–36.8; O2SAT 94–97
[2019-11-10] MEDS: oxyCODONE 5 MG TAB PO ×4 (03:44→21:32)
--- NOTE | 2019-11-10 06:06 | DI.RAD_ITS ---
EXAM: XR PORTABLE CHEST AP CLINICAL HISTORY: Left pneumothorax TECHNIQUE: COMPARISON: CR,XR XR PORTABLE CHEST AP POST LINE from 11/09/2019 FINDINGS: Left thoracotomy tube again noted in position. Minimal persistent left apical pneumothorax. Right l arvin remains clear. Mild atelectasis noted on the left. IMPRESSION: No significant interval change.
--- NOTE | 2019-11-10 06:34 | DI.VRAD_ITS ---
PROCEDURE INFORMATION: Exam: XR Chest, 1 View Exam date and time: 11/10/2019 6:07 AM Age: 64 years old Clinical indication: Condition or disease; Other: Left pneumothorax; Prior surgery; Surgery type: Chest tube TECHNIQUE: Imaging protocol: XR of the chest Views: 1 view. COMPARISON: CR XR PORTABLE CHEST AP POST LINE 11/09/2019 5:48 AM FINDINGS: Lungs: Tubes and lines unchanged. No consolidation. Pleural space: Unremarkable. No pleural effusion. No pneumothorax. Heart/Mediastinum: Pneumomediastinum again question. No cardiomegaly. Bones/joints: Unremarkable. IMPRESSION: No acute findings. Dictated and Authenticated by: Hank Bryant MD. Ordering:STEPHEN Meredith MD
[2019-11-10 06:44] LABS: Absolute Basophil Count 0.01 10^3/uL (0.0-0.2); Absolute Lymphocyte Count 0.45 10^3/uL (1.2-3.4); Absolute Monocyte Count 0.53 10^3/uL (0.1-0.8); Absolute Neutrophil Count 2.34 10^3/uL (1.2-6.7); Basophils % 0.3; Eosinophils % 2.9; HCT 29.7 % (40.0-50.0); HGB 9.7 g/dL (13.5-17.5); Immature Grans % 0.6; MCH 29.3 pg (27.0-33.0); MCHC 32.7 % (32.0-36.0); MCV 89.7 fL (80-95); MPV 9.2 fL (8.0-11.0); Monocytes % 15.4; Neutrophils % 67.8; Platelet Count 102 10^3/uL (130-400); RBC 3.31 10^6/uL (4.36-5.78); RDW 15.5 % (11.8-14.1); RDW-SD 49.1 fL; WBC 3.45 10^3/uL (4.4-10.8)
[2019-11-10 06:45] LABS: Abs Immature Grans 0.02 10^3/uL (0.0-0.06)
[2019-11-10 06:50] LABS: Ammonia 39 umol/L (11-32)
[2019-11-10 07:05] LABS: ALT 27 U/L (16-63); AST 29 U/L (15-37); Alkaline Phosphatase 76 U/L (46-116); Anion Gap 6.1 mmol/L (3-11); BUN 10 mg/dL (7-18); Bilirubin, Total 0.8 mg/dL (0.2-1.0); CO2 26.9 mmol/L (21.0-32.0); CREATININE 0.68 mg/dL (0.70-1.30); Calcium 8.3 mg/dL (8.5-10.1); Chloride 105 mmol/L (98-107); Glucose 183 mg/dL (74-106); Magnesium 1.7 mg/dL (1.8-2.4); Sodium 138 mmol/L (136-145); Total Protein 5.1 g/dL (6.4-8.2)
--- NOTE | 2019-11-10 08:10 | PDOC.CMPRO ---
- If Service Date Differs Date of service: 11/10/19 Time of Service: 08:10 Care Management Progress Note S/O: Alonzo remains in the ICU no changes in the current discharge plan CM to continue to assess for discharge needs and support disposition. A: Alonzo is a 64 year old man admitted on 11/04/19 with a recurrent pneumothorax P: Alonzo remains in the ICU today, although he may be transferred out to the Med-Surg Unit later today. He may benefit from new services at discharge, although the plan is not clear at this time. CM will continue to support Alonzo and assess for discharge planning concerns.
[2019-11-10] MEDS: Rifaximin 550 MG TAB PO ×2 (08:56→20:03)
[2019-11-10] MEDS: Magnesium Oxide 400 MG TAB PO (08:56)
[2019-11-10] MEDS: Pantoprazole 40 MG TABCR PO (08:56)
[2019-11-10] MEDS: Normal Saline Flush 10 ML SYR IVP ×2 (08:58→22:00)
--- NOTE | 2019-11-10 12:17 | PT.INTREAT ---
Date of service: 11/10/19 Time of Service: 10:30 PT Notes Visit Reasons: RECURRENT PTX Inpatient Physical Therapy Treatment Note [facility] Date: 11/10/2019 PRECAUTIONS:Fall, Standard and Activities as tolerated SUBJECTIVE: Likes to walk. Would be glad to walk around 2nd floor for 3rd time. Pain level 4 out of 10 while walking. Indicated that he feels like moving makes him feel better later in the day. OBJECTIVE: PAIN: 4 out of 10 on 0-10 pain scale BED MOBILITY/TRANSFERS Supine-sit: SBA with head of bed at approximately 45 degrees Sit-stand: SBA Stand-sit: SBA and verbal cueing to reach back for arms of chair with right UE GAIT Assistive Device: FWW Weight bearing: FWB Assist: CGA Distance: 800ft THEREX: Performed seated marching, mini squats for 10 reps each and heel raises x 20 reps. ASSESSMENT: Tolerated all activity well today. PLAN: Continue with current plan of care. Discussed performing stairs tomorrow in preparation for return home where he has 10 steps with handrail. TREATMENT CODE/TIME: 99818 x 2, 10:30 to 11:00
--- NOTE | 2019-11-10 13:00 | DI.RAD_ITS ---
EXAM: XR PORTABLE CHEST AP POST LINE CLINICAL HISTORY: Recheck line placement TECHNIQUE: COMPARISON: CR,XR XR PORTABLE CHEST AP from 11/10/2019 FINDINGS: The prior previously noted left thoracotomy tube has been removed. Note is again of multiple left ri b fractures. There is reaccumulation fluid in the left pleural space. No recurrent pneumothorax see n. Some presumed atelectasis is present. Right lung remains clear and expanded. Right-sided centra l venous catheter again noted in place. IMPRESSION:
--- NOTE | 2019-11-10 13:45 | NUR.NOTE ---
Pt complained of ongoing sore throat before transferring to the medical surgical floor. I checked in the patient's mouth and noted white streaks in the back of his throat. The patient has white build-up on his tongue and I had him brush his before leaving for med-surg to assess for thrush. Dr. Short came into the unit just after walking the patient to his room and I reported the throat issues and whiteness. She states she will go assess him for thrush. Nursing Note:
--- NOTE | 2019-11-10 13:49 | DI.VRAD_ITS ---
PROCEDURE INFORMATION: Exam: XR Chest, 1 View Exam date and time: 11/10/2019 1:26 PM Age: 64 years old Clinical indication: Other: Recheck line placement, moved out to 6cm from 4cm during dressing change TECHNIQUE: Imaging protocol: XR of the chest Views: 1 view. COMPARISON: CR XR PORTABLE CHEST AP 11/10/2019 6:00 AM FINDINGS: Interval removal of left chest tube. Right upper extremity PICC with distal aspect seen to the lower SVC as previous. Peripheral left lung hazy opacification, likely contusion. Moderate left pleural effusion, likely hemothorax. No pneumothorax. Multiple displaced left posterior rib fractures. Endovascular coils project over the mid upper abdomen. Borderline enlarged cardiac silhouette. IMPRESSION: Interval removal of left chest tube. No pneumothorax. Right upper extremity PICC with distal aspect seen to the lower SVC as previous. Peripheral left lung hazy opacification, likely contusion. Moderate left pleural effusion, likely hemothorax. Multiple displaced left posterior rib fractures. Dictated and Authenticated by: Torres Puente MD. Ordering:ZACKARY Cagle MD
[2019-11-10] MEDS: Magic Mouthwash 119 ML BTL PO ×2 (14:00→20:10)
--- NOTE | 2019-11-10 14:29 | PGE_ITS ---
Date of Service Date of service: 11/10/19 Time of Service: 13:00 Assessment and Plan Assessment and plan (1) Pneumothorax on left: Status: Acute Assessment and plan: His CXR this am showed no pneumothorax after clamping. CT removed. Follow up film scheduled for the am. Will potentially discharge tomorrow if X ray looks good Oral exam does not obviously show thrush. Will try magic mouthwash for sore throat. Subjective Subjective Interval history since last seen: He has been walking more. Walked from ICU to Med/Surg today. Pain is controlled Main complaint is a sore throat which is limiting his ability to drink/eat. Exam Narrative Exam Narrative: Sitting up, alert Oral exam shows yellowish exudate on tongue/uvula but not typical thrush appearance. Chest tube removed intact, Vaseline dressing applied Objective Objective Clinical Data: Abnormal lab results 11/10/19 11/10/19 11/10/19 Range/Units 06:10 06:10 06:10 WBC 3.45 L (4.4-10.8) 10^3/uL RBC 3.31 L (4.36-5.78) 10^6/uL Hgb 9.7 L (13.5-17.5) g/dL Hct 29.7 L (40.0-50.0) % RDW 15.5 H (11.8-14.1) % Plt Count 102 L (130-400) 10^3/uL Absolute Lymphocytes 0.45 L (1.2-3.4) 10^3/uL Creatinine 0.68 L (0.70-1.30) mg/dL Glucose 183 H (74-106) mg/dL Calcium 8.3 L (8.5-10.1) mg/dL Magnesium 1.7 L (1.8-2.4) mg/dL Ammonia 39 H (11-32) umol/L Total Protein 5.1 L (6.4-8.2) g/dL Albumin 2.0 L (3.4-5.0) g/dL Vital Signs Temperature 97.5 F L 11/10/19 13:30 Temperature Source Tympanic 11/10/19 13:30 Pulse 88 11/10/19 13:30 Pulse Rhythm Regular 11/10/19 08:45 Pulse 82 11/09/19 15:17 Respiratory Rate 16 11/10/19 13:30 Respiratory Effort 11/10/19 13:33 Respiratory Depth Normal 11/10/19 13:33 Respiratory Pattern Normal 11/10/19 13:33 Blood Pressure 131/79 11/10/19 13:30 Blood Pressure Mean 84 11/10/19 08:53 Blood Pressure Position Sitting 11/09/19 15:44 Pulse Oximetry 97 11/10/19 13:30 Respiratory End-tidal CO2 24 11/06/19 11:11 Oxygen Delivery Method Room Air 11/10/19 13:30 Oxygen Flow Rate 0 11/10/19 13:30 Fraction of Inspired Oxygen (FIO2) 34 11/10/19 10:00 Pain Level 4 11/10/19 13:00 Comment 11/09/19 13:23 Intake & Output 11/09/19 11/10/19 11/10/19 23:59 11:59 23:59 Intake Total 865 / 865 130 / 230 100 / 230 Output Total 625 / 1625 700 / 700 Balance 240 / -760 -570 / -470 100 / -470 Weight 220 lb 7.396 oz Intake: IV 30 Oral 865 / 865 100 / 200 100 / 200 Output: Chest Tube Drainage 100 / 450 Urine 525 / 1175 700 / 700 Other: Urine Color Yellow Light Treva Urine Appearance Clear Clear Clear Urine Odor None Strong Stool Occult Blood Negative Stool Size Small Stool Characteristics Soft Formed Voiding Methods Urinal Urinal Laboratory Results WBC 3.45 10^3/uL (4.4-10.8) L 11/10/19 06:10 RBC 3.31 10^6/uL (4.36-5.78) L 11/10/19 06:10 Hgb 9.7 g/dL (13.5-17.5) L 11/10/19 06:10 Hct 29.7 % (40.0-50.0) L 11/10/19 06:10 MCV 89.7 fL (80-95) 11/10/19 06:10 MCH 29.3 pg (27.0-33.0) 11/10/19 06:10 MCHC 32.7 % (32.0-36.0) 11/10/19 06:10 RDW 15.5 % (11.8-14.1) H 11/10/19 06:10 Plt Count 102 10^3/uL (130-400) L 11/10/19 06:10 MPV 9.2 fL (8.0-11.0) 11/10/19 06:10 Immature Gran % 0.6 11/10/19 06:10 Neutrophils % 67.8 11/10/19 06:10 Lymphocytes % 13.0 11/10/19 06:10 Monocytes % 15.4 11/10/19 06:10 Eosinophils % 2.9 11/10/19 06:10 Basophils % 0.3 11/10/19 06:10 Absolute Neutrophils 2.34 10^3/uL (1.2-6.7) 11/10/19 06:10 Absolute Lymphocytes 0.45 10^3/uL (1.2-3.4) L 11/10/19 06:10 Absolute Monocytes 0.53 10^3/uL (0.1-0.8) 11/10/19 06:10 Absolute Eosinophils 0.10 10^3/uL (0.0-0.7) 11/10/19 06:10 Absolute Basophils 0.01 10^3/uL (0.0-0.2) 11/10/19 06:10 PT 11.6 sec (9.3-11.0) H 11/06/19 05:00 INR 1.2 (0.9-1.1) H 11/06/19 05:00 ABG Sample Site Right radial 11/05/19 22:40 ABG pH 7.32 (7.35-7.45) L 11/05/19 22:40 ABG pCO2 37 mmHg (34-47) 11/05/19 22:40 ABG pO2 79 mmHg (83-108) L 11/05/19 22:40 ABG HCO3 19 mmol/L (22-28) L 11/05/19 22:40 ABG Total CO2 18 mmol/L (22-29) L 11/05/19 22:40 ABG O2 Saturation 97 % (94-98) 11/05/19 22:40 ABG Base Excess -6.9 mmol/L (-3-3) L 11/05/19 22:40 Oxygen Liter Flow 15/3 L 11/05/19 22:40 FiO2 24 % 11/05/19 22:40 Sodium 138 mmol/L (136-145) 11/10/19 06:10 Potassium 4.0 mmol/L (3.5-5.1) 11/10/19 06:10 Chloride 105 mmol/L (98-107) 11/10/19 06:10 Carbon Dioxide 26.9 mmol/L (21.0-32.0) 11/10/19 06:10 Anion Gap 6.1 mmol/L (3-11) 11/10/19 06:10 BUN 10 mg/dL (7-18) 11/10/19 06:10 Creatinine 0.68 mg/dL (0.70-1.30) L 11/10/19 06:10 Estimated GFR/1.73 m2 >= 60.00 (mL/min/1.73m2) 11/10/19 06:10 Glucose 183 mg/dL (74-106) H 11/10/19 06:10 Calcium 8.3 mg/dL (8.5-10.1) L 11/10/19 06:10 Magnesium 1.7 mg/dL (1.8-2.4) L 11/10/19 06:10 Total Bilirubin 0.8 mg/dL (0.2-1.0) 11/10/19 06:10 GGT 28 U/L (15-85) 11/05/19 12:10 AST 29 U/L (15-37) 11/10/19 06:10 ALT 27 U/L (16-63) 11/10/19 06:10 Alkaline Phosphatase 76 U/L (46-116) 11/10/19 06:10 Ammonia 39 umol/L (11-32) H 11/10/19 06:10 Total Protein 5.1 g/dL (6.4-8.2) L 11/10/19 06:10 Albumin 2.0 g/dL (3.4-5.0) L 11/10/19 06:10 Urine Color Treva (Yellow) 11/04/19 18:57 Urine Clarity Clear (Clear) 11/04/19 18:57 Urine pH 5.0 (5-8) 11/04/19 18:57 Ur Specific [place] 1.025 (1.005-1.025) 11/04/19 18:57 Urine Protein Negative mg/dL (Negative) 11/04/19 18:57 Urine Ketones Negative mg/dL (Negative) 11/04/19 18:57 Urine Blood Negative (Negative) 11/04/19 18:57 Urine Nitrite Negative (Negative) 11/04/19 18:57 Urine Bilirubin Negative (Negative) 11/04/19 18:57 Urine Urobilinogen 0.2 EU/dL (Up TO 0.2) 11/04/19 18:57 Ur Leukocyte Esterase Negative (Negative) 11/04/19 18:57 Urine Glucose 500 mg/dL (Negative) H 11/04/19 18:57 Patient ABO/Rh A Positive 11/05/19 23:05 Antibody Screen Positive 11/05/19 23:05 Antibody Identification Anti-E Anti-c 11/05/19 23:05 Antibody Identification Anti-E Anti-c 11/05/19 23:05
[2019-11-10] MEDS: Potassium Chloride Liquid 20 MEQ PKT PO (20:03)
[2019-11-10] MEDS: QUEtiapine 25 MG TAB PO (21:32)
[2019-11-10] MEDS: Gabapentin 300 MG CAP PO (21:32)
[2019-11-11] MEDS: oxyCODONE 5 MG TAB PO ×4 (02:36→21:55)
[2019-11-11] MEDS: Magic Mouthwash 119 ML BTL PO ×3 (02:49→14:18)
[2019-11-11 03:04] VITALS: BP 130/78; PULSE 82; RESP 17; TEMP 36.6; O2SAT 97
[2019-11-11 07:30] VITALS: BP 141/82; PULSE 77; RESP 19; TEMP 37; O2SAT 96
--- NOTE | 2019-11-11 07:37 | DI.RAD_ITS ---
EXAM: XR CHEST 1V IN DI DEPT CLINICAL HISTORY: Left pneumothorax TECHNIQUE: COMPARISON: CR,XR XR PORTABLE CHEST AP POST LINE from 11/10/2019 FINDINGS: Note is again made of previously described left rib fractures, there has been some interval re-expans ion of the left lung since yesterday's examination, pulmonary and pleural radiodensities persist on t he left. Right lung remains clear. IMPRESSION: Interval improvement from yesterday's examination. No visible left pneumothorax at this time
--- NOTE | 2019-11-11 08:09 | DI.VRAD_ITS ---
PROCEDURE INFORMATION: Exam: XR Chest, 1 View Exam date and time: 11/11/2019 7:36 AM Age: 64 years old Clinical indication: Other: Left pneumothorax TECHNIQUE: Imaging protocol: XR of the chest Views: 1 view. COMPARISON: CR XR PORTABLE CHEST AP POST LINE 11/10/2019 1:20 PM FINDINGS: Tubes, catheters and devices: Stable right PICC line Lungs: Decreasing opacities in the left hemithorax may represent improving contusion and atelectasis. Pleural space: Decreasing left pleural effusion. Heart/Mediastinum: Stable cardiac silhouette Bones/joints: Again noted are multiple left rib fractures. Other findings: Stable endovascular coils in the upper abdomen IMPRESSION: 1. Decreasing opacities in the left hemithorax may represent improving contusion and atelectasis. 2. Decreasing left pleural effusion. Dictated and Authenticated by: Maxwell Beckman MD. Ordering:STEPHEN Meredith MD
[2019-11-11] MEDS: Rifaximin 550 MG TAB PO ×2 (08:38→20:16)
[2019-11-11] MEDS: Pantoprazole 40 MG TABCR PO (08:39)
--- NOTE | 2019-11-11 10:40 | PGE_ITS ---
Date of Service Date of service: 11/11/19 Time of Service: 08:15 Assessment and Plan Assessment and plan (1) Pneumothorax on left: Status: Acute Assessment and plan: CXR today looks good Will stop PO magnesium and KCL in case this is a cause of some esophageal irritation. Add nystatin swish and swallow Patient would like to be eating better before discharge. Will plan for t omorrow. Subjective Subjective Interval history since last seen: Feels like he is more mobile. Walking and moving arm Still having trouble with swallowing although feels that the magic mouthwash is helping. Has not eaten much. Exam Narrative Exam Narrative: Appears well Lungs with bilateral breath sounds Heart RRR Objective Objective Clinical Data: Vital Signs Temperature 98.6 F 11/11/19 07:30 Temperature Source Tympanic 11/11/19 07:30 Pulse 77 11/11/19 07:30 Pulse Rhythm Regular 11/11/19 07:23 Pulse 82 11/09/19 15:17 Respiratory Rate 19 11/11/19 07:30 Respiratory Effort Non-Labored 11/11/19 07:23 Respiratory Depth Normal 11/11/19 07:23 Respiratory Pattern Normal 11/11/19 07:23 Blood Pressure 141/82 H 11/11/19 07:30 Blood Pressure Mean 84 11/10/19 08:53 Blood Pressure Position Sitting 11/09/19 15:44 Pulse Oximetry 96 11/11/19 07:30 Respiratory End-tidal CO2 24 11/06/19 11:11 Oxygen Delivery Method Room Air 11/11/19 07:30 Oxygen Flow Rate 0 11/11/19 07:30 Fraction of Inspired Oxygen (FIO2) 34 11/10/19 10:00 Pain Level 4 11/11/19 08:38 Comment 11/09/19 13:23 Intake & Output 11/10/19 11/10/19 11/11/19 11:59 23:59 11:59 Intake Total 130 / 470 340 / 470 180 / 180 Output Total 700 / 850 150 / 850 Balance -570 / -380 190 / -380 180 / 180 Weight 220 lb 7.396 oz Intake: IV 30 / 30 Oral 100 / 440 340 / 440 180 / 180 Output: Urine 700 / 850 150 / 850 Other: Urine Color Light Treva Yellow Urine Appearance Clear Clear Clear Urine Odor Strong Comment RN didnot assess urine Stool Occult Blood Negative Stool Size Small Stool Characteristics Soft Formed Voiding Methods Urinal Toilet Toilet Laboratory Results WBC 3.45 10^3/uL (4.4-10.8) L 11/10/19 06:10 RBC 3.31 10^6/uL (4.36-5.78) L 11/10/19 06:10 Hgb 9.7 g/dL (13.5-17.5) L 11/10/19 06:10 Hct 29.7 % (40.0-50.0) L 11/10/19 06:10 MCV 89.7 fL (80-95) 11/10/19 06:10 MCH 29.3 pg (27.0-33.0) 11/10/19 06:10 MCHC 32.7 % (32.0-36.0) 11/10/19 06:10 RDW 15.5 % (11.8-14.1) H 11/10/19 06:10 Plt Count 102 10^3/uL (130-400) L 11/10/19 06:10 MPV 9.2 fL (8.0-11.0) 11/10/19 06:10 Immature Gran % 0.6 11/10/19 06:10 Neutrophils % 67.8 11/10/19 06:10 Lymphocytes % 13.0 11/10/19 06:10 Monocytes % 15.4 11/10/19 06:10 Eosinophils % 2.9 11/10/19 06:10 Basophils % 0.3 11/10/19 06:10 Absolute Neutrophils 2.34 10^3/uL (1.2-6.7) 11/10/19 06:10 Absolute Lymphocytes 0.45 10^3/uL (1.2-3.4) L 11/10/19 06:10 Absolute Monocytes 0.53 10^3/uL (0.1-0.8) 11/10/19 06:10 Absolute Eosinophils 0.10 10^3/uL (0.0-0.7) 11/10/19 06:10 Absolute Basophils 0.01 10^3/uL (0.0-0.2) 11/10/19 06:10 PT 11.6 sec (9.3-11.0) H 11/06/19 05:00 INR 1.2 (0.9-1.1) H 11/06/19 05:00 ABG Sample Site Right radial 11/05/19 22:40 ABG pH 7.32 (7.35-7.45) L 11/05/19 22:40 ABG pCO2 37 mmHg (34-47) 11/05/19 22:40 ABG pO2 79 mmHg (83-108) L 11/05/19 22:40 ABG HCO3 19 mmol/L (22-28) L 11/05/19 22:40 ABG Total CO2 18 mmol/L (22-29) L 11/05/19 22:40 ABG O2 Saturation 97 % (94-98) 11/05/19 22:40 ABG Base Excess -6.9 mmol/L (-3-3) L 11/05/19 22:40 Oxygen Liter Flow 15/3 L 11/05/19 22:40 FiO2 24 % 11/05/19 22:40 Sodium 138 mmol/L (136-145) 11/10/19 06:10 Potassium 4.0 mmol/L (3.5-5.1) 11/10/19 06:10 Chloride 105 mmol/L (98-107) 11/10/19 06:10 Carbon Dioxide 26.9 mmol/L (21.0-32.0) 11/10/19 06:10 Anion Gap 6.1 mmol/L (3-11) 11/10/19 06:10 BUN 10 mg/dL (7-18) 11/10/19 06:10 Creatinine 0.68 mg/dL (0.70-1.30) L 11/10/19 06:10 Estimated GFR/1.73 m2 >= 60.00 (mL/min/1.73m2) 11/10/19 06:10 Glucose 183 mg/dL (74-106) H 11/10/19 06:10 Calcium 8.3 mg/dL (8.5-10.1) L 11/10/19 06:10 Magnesium 1.7 mg/dL (1.8-2.4) L 11/10/19 06:10 Total Bilirubin 0.8 mg/dL (0.2-1.0) 11/10/19 06:10 GGT 28 U/L (15-85) 11/05/19 12:10 AST 29 U/L (15-37) 11/10/19 06:10 ALT 27 U/L (16-63) 11/10/19 06:10 Alkaline Phosphatase 76 U/L (46-116) 11/10/19 06:10 Ammonia 39 umol/L (11-32) H 11/10/19 06:10 Total Protein 5.1 g/dL (6.4-8.2) L 11/10/19 06:10 Albumin 2.0 g/dL (3.4-5.0) L 11/10/19 06:10 Urine Color Treva (Yellow) 11/04/19 18:57 Urine Clarity Clear (Clear) 11/04/19 18:57 Urine pH 5.0 (5-8) 11/04/19 18:57 Ur Specific [place] 1.025 (1.005-1.025) 11/04/19 18:57 Urine Protein Negative mg/dL (Negative) 11/04/19 18:57 Urine Ketones Negative mg/dL (Negative) 11/04/19 18:57 Urine Blood Negative (Negative) 11/04/19 18:57 Urine Nitrite Negative (Negative) 11/04/19 18:57 Urine Bilirubin Negative (Negative) 11/04/19 18:57 Urine Urobilinogen 0.2 EU/dL (Up TO 0.2) 11/04/19 18:57 Ur Leukocyte Esterase Negative (Negative) 11/04/19 18:57 Urine Glucose 500 mg/dL (Negative) H 11/04/19 18:57 Patient ABO/Rh A Positive 11/05/19 23:05 Antibody Screen Positive 11/05/19 23:05 Antibody Identification Anti-E Anti-c 11/05/19 23:05 Antibody Identification Anti-E Anti-c 11/05/19 23:05
[2019-11-11] MEDS: Normal Saline Flush 10 ML SYR IVP ×2 (10:45→19:40)
[2019-11-11 11:25] VITALS: BP 123/67; PULSE 76; RESP 19; TEMP 37; O2SAT 93
--- NOTE | 2019-11-11 11:26 | PT.INTREAT ---
Date of service: 11/11/19 Time of Service: 11:05 PT Notes Visit Reasons: RECURRENT PTX Inpatient Physical Therapy Treatment Note [facility] Date: 11/11/2019 PRECAUTIONS:Fall, standard, activities as tolerated SUBJECTIVE: Attempted to see patient earlier in the morning and he was sleeping in chair. When arrived to patient's room later in the morning he was in bed and indicated he did not feel like walking or exercising right now, but would do later. Indicated to patient that we only do PT one time on Sundays and I would not be here later. He stated he had been walking already this morning and that he is being DCed tomorrow and would like a HEP to do independently. Also, very interested in having out patient PT once discharged. I reviewed a written HEP with patient and he indicated he understood each exercise. OBJECTIVE: PAIN: No complaints of pain, just complaints of being tired and wanting to rest today, before going home tomorrow. Discussed the importance of keeping active and walking. THEREX: Given written instruction in LE strengthening and hip stabilization exercises, this included LAQs, quad sets, SAQs, mini squats, heel raises, standing hip flexion, standing hip abduction and standing hip extension, as well as standing short swing hamstrings. See photocopy for details. STAIRS: Has stairs at home. Advise patient attempt stairs in PT dept tomorrow prior to discharge. Indicated he has 10 steps at home. ASSESSMENT: Appeared to have good understanding of HEP. Patient did appear very tired today. Was snoring in chair when I first attempted to see him this morning and eyes where closing while discussing last couple to exercises in HEP. PLAN: Continue with current POC, until discharge with focus on strengthening for improved ADL function. Do feel continued PT services post DC would be beneficial. TREATMENT CODE/TIME: [id number], 11:05 to 11:
--- NOTE | 2019-11-11 12:35 | PDOC.CMPRO ---
- If Service Date Differs Date of service: 11/11/19 Time of Service: 12:35 Care Management Progress Note S/O: Alonzo is ambulating independently in the room, he did have PT today no recommendation for outpatient services. Alonzo will be discharged home with no additional service at time of discharge. A: Alonzo is a 64 year old man admitted on 11/04/19 with a recurrent pneumothorax P: Alonzo will be discharged home when medically ready per provider he should be discharged on Tuesday. He will transport home via private car with friend.
[2019-11-11] MEDS: Nystatin 500000 UNITS/5 ML SUSP 5ML CUP PO ×2 (13:28→20:16)
[2019-11-11 15:29] VITALS: BP 135/71; PULSE 79; RESP 19; TEMP 37; O2SAT 97
[2019-11-11 19:38] VITALS: BP 128/67; PULSE 74; RESP 17; TEMP 37.2; O2SAT 96
[2019-11-11] MEDS: QUEtiapine 25 MG TAB PO (21:53)
[2019-11-11] MEDS: Gabapentin 300 MG CAP PO (21:53)
[2019-11-11 23:00] VITALS: BP 119/74; PULSE 74; RESP 17; TEMP 37.3; O2SAT 95
[2019-11-12] MEDS: oxyCODONE 5 MG TAB PO ×3 (02:15→12:17)
[2019-11-12 03:10] VITALS: BP 102/65; PULSE 75; RESP 17; TEMP 36.8; O2SAT 93
[2019-11-12] MEDS: Magic Mouthwash 119 ML BTL PO (03:39)
[2019-11-12] MEDS: Pantoprazole 40 MG TABCR PO (07:12)
[2019-11-12 07:29] VITALS: BP 147/87; PULSE 76; RESP 18; TEMP 37; O2SAT 95
--- NOTE | 2019-11-12 08:10 | W.PM.PROGNOT ---
Date of Service Date of service: 11/12/19 Time of Service: 07:00 Assessment and Plan Assessment and plan (1) Hepatic encephalopathy: Status: Resolved Assessment and plan: Resolved (2) CO2 narcosis: Status: Resolved Assessment and plan: Resolved (3) Pneumothorax: Status: Acute Assessment and plan: Resolved CXR yesterday with less contusion and small amount of effusion Qualifiers: Pneumothorax type: traumatic Encounter type: initial encounter Qualified Code(s): S27.0XXA - Traumatic pneumothorax, initial encounter (4) Fracture of rib of left side: Status: Acute Assessment and plan: Pain is controlled Qualifiers: Encounter type: initial encounter Rib fracture type: multiple ribs Fracture type: closed Qualified Code(s): S22.42XA - Multiple fractures of ribs, left side, initial encounter for closed fracture (5) Fracture of left clavicle: Status: Acute Assessment and plan: stable Qualifiers: Encounter type: initial encounter Clavicle location: unspecified part of clavicle Fracture type: closed Fracture alignment: nondisplaced Qualified Code(s): S42.002A - Fracture of unspecified part of left clavicle, initial encounter for closed fracture (6) Cirrhosis: Status: Chronic Assessment and plan: Hep C adn ETOH abuse. GI felt it was more due to ETOH use. Pt states he is 14m sober. Qualifiers: Hepatic cirrhosis type: unspecified hepatic cirrhosis Ascites presence: without ascites Qualified Code(s): K74.60 - Unspecified cirrhosis of liver (7) Red blood cell antibody positive with compatible PRBC difficult to obtain: Status: Acute (8) Anemia: Status: Chronic Assessment and plan: stable Qualifiers: Anemia type: unspecified type Qualified Code(s): D64.9 - Anemia, unspecified (9) Hx of caloric malnutrition: Status: Acute Assessment and plan: Start a soft diet as tolerated. NO eating yet. Will encourage today. Try milk shakes (10) Sore throat: Status: Acute Assessment and plan: swish and swallow Cepacol lozanges q 6 hours Subjective Subjective Interval history since last seen: Alonzo is doing much better. His chest tube is out. He was up and walking when I came to see him. His only complaint is a sore throat. The nystatin swish and swallow makes it feel better. Still not eating much Exam Const General: cooperative, comfortable and no acute distress Orientation: alert, awake and oriented x3 HENMT Head: normocephalic and atraumatic Chest Other: Chest and left shoulder bruising is fading Resp Effort & Inspection: normal respiratory effort Auscultation: clear to auscultation bilaterally and diminished lung sounds bilaterally in the lower lung menard Cardio Rate: regular rate Rhythm: regular rhythm GI Palpation: soft, no hepatosplenomegaly and nontender Auscultation: normal bowel sounds Objective Objective Clinical Data: Vital Signs Temperature 98.6 F 11/12/19 07:29 Temperature Source Tympanic 11/12/19 07:29 Pulse 76 11/12/19 07:29 Pulse Rhythm Regular 11/12/19 02:04 Pulse 82 11/09/19 15:17 Respiratory Rate 18 11/12/19 07:29 Respiratory Effort Non-Labored 11/12/19 02:04 Respiratory Depth Normal 11/12/19 02:04 Respiratory Pattern Normal 11/12/19 02:04 Blood Pressure 147/87 H 11/12/19 07:29 Blood Pressure Mean 84 11/10/19 08:53 Blood Pressure Position Sitting 11/09/19 15:44 Pulse Oximetry 95 11/12/19 07:29 Respiratory End-tidal CO2 24 11/06/19 11:11 Oxygen Delivery Method Room Air 11/12/19 07:29 Oxygen Flow Rate 0 11/12/19 07:29 Fraction of Inspired Oxygen (FIO2) 34 11/10/19 10:00 Pain Level 4 11/12/19 07:29 Comment 11/09/19 13:23 Intake & Output 11/11/19 11/11/19 11/12/19 11:59 23:59 11:59 Intake Total 210 / 690 480 / 690 Balance 210 / 690 480 / 690 Intake: IV 30 Oral 180 / 660 480 / 660 Other: Urine Appearance Clear Clear Clear Comment Pt has been voiding normally in the toilet in his room, per patient. Voiding Methods Toilet Laboratory Results WBC 3.45 10^3/uL (4.4-10.8) L 11/10/19 06:10 RBC 3.31 10^6/uL (4.36-5.78) L 11/10/19 06:10 Hgb 9.7 g/dL (13.5-17.5) L 11/10/19 06:10 Hct 29.7 % (40.0-50.0) L 11/10/19 06:10 MCV 89.7 fL (80-95) 11/10/19 06:10 MCH 29.3 pg (27.0-33.0) 11/10/19 06:10 MCHC 32.7 % (32.0-36.0) 11/10/19 06:10 RDW 15.5 % (11.8-14.1) H 11/10/19 06:10 Plt Count 102 10^3/uL (130-400) L 11/10/19 06:10 MPV 9.2 fL (8.0-11.0) 11/10/19 06:10 Immature Gran % 0.6 11/10/19 06:10 Neutrophils % 67.8 11/10/19 06:10 Lymphocytes % 13.0 11/10/19 06:10 Monocytes % 15.4 11/10/19 06:10 Eosinophils % 2.9 11/10/19 06:10 Basophils % 0.3 11/10/19 06:10 Absolute Neutrophils 2.34 10^3/uL (1.2-6.7) 11/10/19 06:10 Absolute Lymphocytes 0.45 10^3/uL (1.2-3.4) L 11/10/19 06:10 Absolute Monocytes 0.53 10^3/uL (0.1-0.8) 11/10/19 06:10 Absolute Eosinophils 0.10 10^3/uL (0.0-0.7) 11/10/19 06:10 Absolute Basophils 0.01 10^3/uL (0.0-0.2) 11/10/19 06:10 PT 11.6 sec (9.3-11.0) H 11/06/19 05:00 INR 1.2 (0.9-1.1) H 11/06/19 05:00 ABG Sample Site Right radial 11/05/19 22:40 ABG pH 7.32 (7.35-7.45) L 11/05/19 22:40 ABG pCO2 37 mmHg (34-47) 11/05/19 22:40 ABG pO2 79 mmHg (83-108) L 11/05/19 22:40 ABG HCO3 19 mmol/L (22-28) L 11/05/19 22:40 ABG Total CO2 18 mmol/L (22-29) L 11/05/19 22:40 ABG O2 Saturation 97 % (94-98) 11/05/19 22:40 ABG Base Excess -6.9 mmol/L (-3-3) L 11/05/19 22:40 Oxygen Liter Flow 15/3 L 11/05/19 22:40 FiO2 24 % 11/05/19 22:40 Sodium 138 mmol/L (136-145) 11/10/19 06:10 Potassium 4.0 mmol/L (3.5-5.1) 11/10/19 06:10 Chloride 105 mmol/L (98-107) 11/10/19 06:10 Carbon Dioxide 26.9 mmol/L (21.0-32.0) 11/10/19 06:10 Anion Gap 6.1 mmol/L (3-11) 11/10/19 06:10 BUN 10 mg/dL (7-18) 11/10/19 06:10 Creatinine 0.68 mg/dL (0.70-1.30) L 11/10/19 06:10 Estimated GFR/1.73 m2 >= 60.00 (mL/min/1.73m2) 11/10/19 06:10 Glucose 183 mg/dL (74-106) H 11/10/19 06:10 Calcium 8.3 mg/dL (8.5-10.1) L 11/10/19 06:10 Magnesium 1.7 mg/dL (1.8-2.4) L 11/10/19 06:10 Total Bilirubin 0.8 mg/dL (0.2-1.0) 11/10/19 06:10 GGT 28 U/L (15-85) 11/05/19 12:10 AST 29 U/L (15-37) 11/10/19 06:10 ALT 27 U/L (16-63) 11/10/19 06:10 Alkaline Phosphatase 76 U/L (46-116) 11/10/19 06:10 Ammonia 39 umol/L (11-32) H 11/10/19 06:10 Total Protein 5.1 g/dL (6.4-8.2) L 11/10/19 06:10 Albumin 2.0 g/dL (3.4-5.0) L 11/10/19 06:10 Urine Color Treva (Yellow) 11/04/19 18:57 Urine Clarity Clear (Clear) 11/04/19 18:57 Urine pH 5.0 (5-8) 11/04/19 18:57 Ur Specific [place] 1.025 (1.005-1.025) 11/04/19 18:57 Urine Protein Negative mg/dL (Negative) 11/04/19 18:57 Urine Ketones Negative mg/dL (Negative) 11/04/19 18:57 Urine Blood Negative (Negative) 11/04/19 18:57 Urine Nitrite Negative (Negative) 11/04/19 18:57 Urine Bilirubin Negative (Negative) 11/04/19 18:57 Urine Urobilinogen 0.2 EU/dL (Up TO 0.2) 11/04/19 18:57 Ur Leukocyte Esterase Negative (Negative) 11/04/19 18:57 Urine Glucose 500 mg/dL (Negative) H 11/04/19 18:57 Patient ABO/Rh A Positive 11/05/19 23:05 Antibody Screen Positive 11/05/19 23:05 Antibody Identification Anti-E Anti-c 11/05/19 23:05 Antibody Identification Anti-E Anti-c 11/05/19 23:05
[2019-11-12] MEDS: Rifaximin 550 MG TAB PO (08:14)
[2019-11-12] MEDS: Nystatin 500000 UNITS/5 ML SUSP 5ML CUP PO ×2 (08:14→13:20)
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
[2019-11-12 11:45] VITALS: BP 128/82; PULSE 84; RESP 18; TEMP 37.2; O2SAT 97
[2019-11-12] MEDS: Normal Saline Flush 10 ML SYR IVP (14:21)
[2019-11-12] MEDS: Bacitracin 1 PACKET TP (14:52)
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
--- NOTE | 2019-11-12 15:30 | CHAPLAIN ---
Alonzo was dressed in his own clothes, sitting up in the chair and told me that he'll be discharged later today. Dong recently joined the [facility] and feels very comfortable there. He said he enjoys the services and likes the featheredger and reducer machine. Recently he started reading Jose Thornton's The Message, a contemporary rewriting of the New Testament, and said he really enjoys it and contrasts it to the [place] version. Before moving to [facility], Alonzo was attending a rom[employer] and was interested in Islam traditions like seders, he said.
--- NOTE | 2019-11-12 17:03 | PDOC.CMDIS ---
- If Service Date Differs Date of service: 11/12/19 Time of Service: 17:03 LACE Index Scoring Tool - Questions: Length of Stay (in days): 7 - 13 Acuity (Admit via E.D.?): Yes E.D. Visits: 3 - Answers: Total Score: 11 Risk of Readmission: High Risk Care Management Discharge Reason for Hospitalization: Pneumothorax Discharge Plan: Alonzo will return home with no additional services at this time. He will follow up with his PCP, out patient PT, and his discharge plan of care. He will be driven home via private vehicle by a friend. He is happy to be returning home. Patient/Family Education Needs: Review discharge instructions regarding activity levels and medications, discussion of self care needs including ask me three. Services Needed at Discharge: Physical Therapy
== END 2019-11-12 15:47 | disposition home or self-care (01) | DRG 200 ==
LOC: ER 13:51 → MS 13:54 → ICU 11-05 10:13 → MS 11-10 13:14
PROVIDERS: General Practice; Internal Medicine; Surgery; Admitting Provider Surgery; Emergency Provider Registered Nurse Emergency; PCP Nurse Practitioner Family; Visit Provider Surgery
DX: S27.0XXA Traumatic pneumothorax, initial encounter (principal); S22.42XA Multiple fractures of ribs, left side, initial encounter for closed fracture; N17.9 Acute kidney failure, unspecified; E87.2 Acidosis; E46 Unspecified protein-calorie malnutrition; S42.025A Nondisplaced fracture of shaft of left clavicle, initial encounter for closed fracture; V29.9XXA Motorcycle rider (driver) (passenger) injured in unspecified traffic accident, initial encounter; K72.90 Hepatic failure, unspecified without coma; K74.60 Unspecified cirrhosis of liver; E86.0 Dehydration; F10.11 Alcohol abuse, in remission; R06.89 Other abnormalities of breathing; E66.9 Obesity, unspecified; Z68.37 Body mass index [BMI] 37.0-37.9, adult; I95.89 Other hypotension; D64.9 Anemia, unspecified; J02.9 Acute pharyngitis, unspecified; K80.20 Calculus of gallbladder without cholecystitis without obstruction; K40.90 Unilateral inguinal hernia, without obstruction or gangrene, not specified as recurrent
CPT/HCPCS: 32551; 36415; 36573; 36592; 71045; 71250; 80048; 80053; 82805; 85027; 86850; 86900; 86901; 96361; 96374; 96375; 97110; 97162; 97530; 99222; 99231; 99232; 99233; 99238; 99254; 99291; NC; 36600; 74018; 81003; 82140; 82977; 83735; 85014; 85018; 85025; 85610; 86870; 94660; J1630; J2060; J2310; J3010; J3475; J3480

== ENCOUNTER → 2019-11-16 12:48 | Outpatient (BNVA) | payer MEDICARE, SELFPAY | PROVIDERS: PCP Nurse Practitioner Family; Referring Provider Nurse Practitioner Family; Visit Provider Surgery | DX: S22.42XD Multiple fractures of ribs, left side, subsequent encounter for fracture with routine healing (principal); S42.002D Fracture of unspecified part of left clavicle, subsequent encounter for fracture with routine healing; X58.XXXD Exposure to other specified factors, subsequent encounter; R06.02 Shortness of breath | CPT/HCPCS: 99212; 99213 ==

== ENCOUNTER 2019-11-19 14:45 | Outpatient (CLI) | payer MEDICARE, SELFPAY ==
--- NOTE | 2019-11-19 11:00 | DI.RAD_ITS ---
EXAM: XR CHEST 2V PA LATERAL CLINICAL HISTORY: Increased SOB, pain, R/O PTX,f/u fractures,r06.02,s22.42xa TECHNIQUE: 2D digital imaging was performed. COMPARISON: CR,XR XR CHEST 2V PA LATERAL from 11/03/2019 CR,XR XR PORTABLE CHEST AP POST LINE from 11/10/2019 CR,XR XR CHEST 1V IN DI DEPT from 11/11/2019 FINDINGS: MEDIASTINUM: Normal. HEART: Normal. PULMONARY VASCULATURE: Normal. LUNGS: Clear. Opacity over the lateral aspect of the left hemithorax is stable. PLEURAL SPACE: No pneumothorax. BONE:Multiple stable left rib fractures. Left clavicular fracture is stable. OTHER FINDINGS:The right PICC line has been removed. IMPRESSION: No evidence of a pneumothorax. DATA REPOSITORY: RADIATION DOSE DELIVERED:
== END 2019-11-19 15:05 ==
PROVIDERS: PCP Nurse Practitioner Family; Visit Provider Surgery
DX: R06.02 Shortness of breath (principal); S22.42XA Multiple fractures of ribs, left side, initial encounter for closed fracture
CPT/HCPCS: 71046

== ENCOUNTER → 2019-11-20 12:58 | Outpatient (BNVA) | payer MEDICARE, SELFPAY | PROVIDERS: PCP Nurse Practitioner Family; Referring Provider Nurse Practitioner Family; Visit Provider Surgery | DX: S22.42XD Multiple fractures of ribs, left side, subsequent encounter for fracture with routine healing (principal); S42.002D Fracture of unspecified part of left clavicle, subsequent encounter for fracture with routine healing; X58.XXXD Exposure to other specified factors, subsequent encounter | CPT/HCPCS: 99213 ==

== ENCOUNTER 2019-11-21 09:33 | Outpatient (CLI) | payer MEDICARE, SELFPAY ==
--- NOTE | 2019-11-21 08:45 | DI.RAD_ITS ---
EXAM: XR CLAVICLE LT CLINICAL HISTORY: fracture of clavicle TECHNIQUE: COMPARISON: CR XR CHEST 2V PA LATERAL from 11/19/2019 FINDINGS: Two views were obtained. There is a mid clavicular fracture with overriding of the fracture fragment s. There is marked displacement of the fracture fragments most easily visualized on the 20 degree an gled view. IMPRESSION:
== END 2019-11-21 09:53 ==
PROVIDERS: PCP Nurse Practitioner Family; Referring Provider Nurse Practitioner Family; Visit Provider Student in an Organized Health Care Education/Training Program
DX: S42.002A Fracture of unspecified part of left clavicle, initial encounter for closed fracture (principal); X58.XXXD Exposure to other specified factors, subsequent encounter; I10 Essential (primary) hypertension; E11.9 Type 2 diabetes mellitus without complications
CPT/HCPCS: 99215; 73000

== ENCOUNTER 2019-11-23 04:26 | Outpatient (CLI) | payer MEDICARE, SELFPAY ==
[2019-11-23 15:09] LABS: HCT 32.5 % (40.0-50.0); HGB 10.3 g/dL (13.5-17.5); MCH 29.6 pg (27.0-33.0); MCHC 31.7 % (32.0-36.0); MCV 93.4 fL (80-95); MPV 8.7 fL (8.0-11.0); RBC 3.48 10^6/uL (4.36-5.78); RDW 15.3 % (11.8-14.1); RDW-SD 51.7 fL; WBC 5.56 10^3/uL (4.4-10.8)
[2019-11-23 15:14] LABS: INR 1.1 (0.9-1.1); PTT Activated 23.4 sec (21.0-31.4)
[2019-11-23 15:15] LABS: Platelet Count 260 10^3/uL (130-400)
[2019-11-23 15:34] LABS: Hemoglobin A1C 6.6 % (3.8-5.6)
[2019-11-23 16:57] LABS: ALT 24 U/L (16-63); AST 26 U/L (15-37); Albumin 3.1 g/dL (3.4-5.0); Alkaline Phosphatase 275 U/L (46-116); Anion Gap 9.2 mmol/L (3-11); BUN 20 mg/dL (7-18); Bilirubin, Total 0.9 mg/dL (0.2-1.0); CO2 24.8 mmol/L (21.0-32.0); CREATININE 0.87 mg/dL (0.70-1.30); Calcium 8.8 mg/dL (8.5-10.1); Chloride 101 mmol/L (98-107); Glucose 122 mg/dL (74-106); Potassium 4.4 mmol/L (3.5-5.1); Sodium 135 mmol/L (136-145); Total Protein 6.8 g/dL (6.4-8.2)
== END 2019-11-23 04:46 ==
PROVIDERS: PCP Nurse Practitioner Family; Visit Provider Student in an Organized Health Care Education/Training Program
DX: I85.00 Esophageal varices without bleeding (principal); S42.002A Fracture of unspecified part of left clavicle, initial encounter for closed fracture; Z86.39 Personal history of other endocrine, nutritional and metabolic disease
CPT/HCPCS: 36415; 80053; 85027; 83036; 85610; 85730

== ENCOUNTER 2019-11-25 04:39 | Inpatient (IN) | payer MEDICARE, SELFPAY ==
[2019-11-25] VITALS (19 sets, daily range): BP systolic 86–159; BP diastolic 49–75; PULSE 65–95; RESP 16–27; TEMP 37–37.5; O2SAT 96–100
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
--- NOTE | 2019-11-25 04:45 | RT.EKG_ITS ---
APPROVED REPORT Exam: Resting ECG Patient Location: E HR:82 bpm ECG Measurements Heart Rate 82 AXIS [place] 178 P 9 QRSd 88 QRS -20 QT 393 T 26 QTc 458 Conclusion Sinus rhythm...normal P axis, V-rate 60- 99 Normal [place] Normal Intervals Normal Electrocardiogram
[2019-11-25 05:08] LABS: Abs Immature Grans 0.03 10^3/uL (0.0-0.06); Absolute Basophil Count 0.04 10^3/uL (0.0-0.2); Absolute Eosinophil Count 0.22 10^3/uL (0.0-0.7); Absolute Lymphocyte Count 1.08 10^3/uL (1.2-3.4); Absolute Monocyte Count 0.78 10^3/uL (0.1-0.8); Basophils % 0.5; HCT 32.5 % (40.0-50.0); HGB 10.4 g/dL (13.5-17.5); Immature Grans % 0.4; Lymphocytes % 14.5; MCH 29.6 pg (27.0-33.0); MCV 92.6 fL (80-95); MPV 8.4 fL (8.0-11.0); Monocytes % 10.5; Neutrophils % 71.1; Nucleated RBC 0 %; Platelet Count 255 10^3/uL (130-400); RBC 3.51 10^6/uL (4.36-5.78); RDW 15.8 % (11.8-14.1); WBC 7.45 10^3/uL (4.4-10.8)
[2019-11-25] MEDS: Lactated Ringers 1,000 ML 1000 ML IV (05:15)
[2019-11-25 05:19] LABS: INR 1.2 (0.9-1.1); Prothrombin Time 11.6 sec (9.3-11.0)
[2019-11-25 05:25] LABS: ALT 21 U/L (16-63); AST 23 U/L (15-37); Albumin 3.1 g/dL (3.4-5.0); Alkaline Phosphatase 250 U/L (46-116); Anion Gap 12.8 mmol/L (3-11); BUN 22 mg/dL (7-18); Bilirubin, Total 0.7 mg/dL (0.2-1.0); CO2 22.2 mmol/L (21.0-32.0); CREATININE 0.94 mg/dL (0.70-1.30); Calcium 8.8 mg/dL (8.5-10.1); Chloride 104 mmol/L (98-107); Glucose 158 mg/dL (74-106); Potassium 3.9 mmol/L (3.5-5.1); Sodium 139 mmol/L (136-145); Total Protein 7.3 g/dL (6.4-8.2)
[2019-11-25 05:30] LABS: Troponin I < 0.05 ng/mL (<0.06)
[2019-11-25] MEDS: Pantoprazole 40 MG VIAL 80 MG IVP (05:35)
[2019-11-25] MEDS: Ondansetron 4 MG/2 ML VIAL IVP ×2 (06:29→18:42)
--- NOTE | 2019-11-25 06:54 | W.PM.HP.N ---
Date of service: 11/25/19 Time of Service: 06:54 Assessment and Plan Assessment and plan (1) Nausea & vomiting: Start date: 11/25/19 Status: Acute Assessment and plan: This is a 64-year-old gentleman who is a recovered alcoholic recently with cirrhosis and sequela of his chronic alcoholism. He began to have black tarry loose stools prior to the onset of intractable nausea for which he came to the ED and is being admitted for IV hydration and symptomatic care while trending his hemograms because of recent increased blood in his stool. He is chronically anemic. Presently he has mostly complained of nausea. He is failed Phenergan and Zofran and will be trialed with Reglan IV. Also he is on a IV PPI with oral Carafate. Treat symptomatically and consider surgical consultation if persisting without resolution with conservative therapy. He has a DNR/DNI. Qualifiers: Vomiting Intractability: intractable Vomiting type: unspecified Qualified Code(s): R11.2 - Nausea with vomiting, unspecified (2) Melena: Start date: 11/25/19 Status: Acute Assessment and plan: Patient has had less stools since he was admitted and we will continue to trend hemograms every 6 hours. He has been typed and screened. Surgical consultation if persisting. (3) Anemia: Status: Chronic Assessment and plan: Patient does have chronic anemia and is difficult to type and cross with 2 antibodies that are abnormal. Type and screen for now and will type and cross and transfuse if needed. If he continues to have blood loss consider transfer to tertiary care center where he receives specialty care. Qualifiers: Anemia type: unspecified type Qualified Code(s): D64.9 - Anemia, unspecified (4) Cirrhosis: Status: Chronic Assessment and plan: This appears to be stable but we need to minimize Tylenol use. Patient is using oxycodone for pain. We will decrease and stop use of NSAIDs. Qualifiers: Ascites presence: without ascites Hepatic cirrhosis type: unspecified hepatic cirrhosis Qualified Code(s): K74.60 - Unspecified cirrhosis of liver (5) Drug abuse: Status: Chronic Assessment and plan: Patient is mostly an alcoholic but recently has been misusing his narcotics with controlled, scheduled as needed use to only twice daily with oxycodone and to maximize comfort measures without medical therapy and minimal Tylenol. He has ongoing sponsorship with [employer]. Urine drug screen was not done upon admission. History of Present Illness History of Present Illness Chief Complaint: Intractable nausea with vomiting with black, tarry loose stools Narrative: This is a 64-year-old male patient with known alcoholic cirrhosis now off alcohol for months status post TIPS procedure for esophageal varices and increase pressures. He states that he has been having loose, black tarry stools for 2 to 3 days prior to presentation to the ED but then began to have persistent and intractable nausea with vomiting without coffee-ground material or blood. He continues to have dark tarry stools. In the ED he had persistent nausea and was admitted for IV hydration and treatment of his intractable nausea. We also need to trend his hemograms with his persistent black tarry stools. He does have problems with hyperglycemia and is on oral therapy which will be covered while in the hospital with before meals and at bedtime glucometers and short acting insulin coverage. He did receive have a hospitalization for fractured ribs on the left side with pneumothorax and fractured left clavicle with prolonged treatment of his pain with narcotics which were being overused and now controlled by his AA sponsor. He also was on NSAIDs for his pain which may have prompted some of his GI symptoms presently. These have been withheld. As stated he has not had any hematemesis. In the ED Zofran and Phenergan were not effective for his nausea and we will DC these with Reglan to be trialed. His current medical problems appear to be overall stable. He is at low risk for alcohol withdrawal with no recent alcohol intake by history. This will be reevaluated as he is hospitalized. He is a DNR/DNI. Review of Systems Narrative: 13 point review of systems otherwise unrevealing or stable. 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) Family History Mother Breast cancer Sister Breast cancer Heart disease Diabetes Sister Breast cancer Hypertension Brother Cancer leukemia Brother Heart disease Diabetes Hypertension Maternal Grandmother Heart disease Father Diabetes Hypertension Social History Smoking/Tobacco Use Status: Never Alcohol Intake: former Year quit: 2018 Substance use type: does not use and former substance user Current gender identity: male Do you feel safe at home: Yes Do you feel safe in your relationship?: Yes Meds Home Medications and Allergies Home Medications Medication Instructions Recorded Confirmed Type lisinopril 20 mg PO DAILY 02/01/19 11/25/19 History lactulose 20 g PO DIRECTED #0 ml 02/02/19 11/25/19 Rx rifaximin 550 mg PO BID 11/02/19 11/25/19 History benzocaine-menthol [Cepacol Sore 1 ea SUC Q6H PRN PRN #20 ea 11/12/19 11/25/19 Rx Throat (radha-men)] cholecalciferol (vitamin D3) 1,250 1,250 mcg PO QMONTH 11/16/19 11/25/19 History mcg (50,000 unit) capsule [id number]-syj-puogs acid 0.4 1 tab PO DAILY 11/16/19 11/25/19 History mg-lycopene 300 mcg-lutein 250 mcg tablet acetaminophen 325 mg capsule 650 mg PO ONCE PRN cap 11/20/19 11/25/19 History ibuprofen 200 mg tablet 600 mg PO Q6H PRN tab 11/20/19 11/25/19 History oxycodone 5 mg tablet 5 mg PO Q12H PRN #14 tab MDD 2 tab 11/20/19 11/25/19 Rx empagliflozin 10 mg tablet 10 mg PO DAILY 11/21/19 11/25/19 History furosemide 20 mg tablet 20 mg PO DAILY PRN 11/21/19 11/25/19 History Allergies Allergy/AdvReac Type Severity Reaction Status Date / Time zolpidem [From Ambien] AdvReac Verified 11/25/19 04:47 Exam Narrative Exam Narrative: General: Patient appears appropriate for age and in no acute distress but flattened affect with good eye contact and normal conversation. He is complaining of nausea with abdominal bloating. HEENT: Normocephalic, eyes with pupils equal and reactive to light symmetrically, extraocular move intact and sclera anicteric. Oropharynx with slightly dry oral mucosa and fair dentition. External nose and ears normal. Neck: Supple without JVD. Back: Stooped posture with no CVA tenderness. Lungs: Fair aeration with no adventitious sounds, normal inspiratory to expiratory phase ratio. Air movement equal on both sides. Heart: Regular rate and rhythm with systolic murmur at the apex and no gallops. Abdomen: Protuberant contour but soft with no focalizing tenderness, no appreciable hepatosplenomegaly. Bowel sounds positive but decreased in all quadrants. Genitalia/rectal: Normal uncircumcised penis and normal testicles with rectal exam deferred. Extremities: Nonpitting edema without clubbing or cyanosis. All joints have fair range of motion. Skin: Pale, warm and dry. No peripheral rashes. Neuro: Cranial nerves II through XII grossly intact, no focalizing motor deficits. Psych: Flattened affect with slightly depressed mood and increased somatization, remote and recent memory intact. Results Imaging Imaging Studies: No imaging repeated in ED with recent admission. Labs Result diagrams: 11/25/19 05:00 11/25/19 05:00 Labs: Laboratory Results - last 24 hr 11/25/19 11/25/19 11/25/19 05:00 05:00 05:00 WBC 7.45 RBC 3.51 L Hgb 10.4 L Hct 32.5 L MCV 92.6 MCH 29.6 MCHC 32.0 RDW 15.8 H Plt Count 255 MPV 8.4 Immature Gran % 0.4 Neutrophils % 71.1 Lymphocytes % 14.5 Monocytes % 10.5 Eosinophils % 3.0 Basophils % 0.5 Absolute Neutrophils 5.30 Absolute Lymphocytes 1.08 L Absolute Monocytes 0.78 Absolute Eosinophils 0.22 Absolute Basophils 0.04 PT 11.6 H INR 1.2 H Sodium 139 Potassium 3.9 Chloride 104 Carbon Dioxide 22.2 Anion Gap 12.8 H BUN 22 H Creatinine 0.94 Estimated GFR/1.73 m2 >= 60.00 Glucose 158 H Calcium 8.8 Magnesium 2.0 Total Bilirubin 0.7 AST 23 ALT 21 Alkaline Phosphatase 250 H Troponin I < 0.05 Total Protein 7.3 Albumin 3.1 L Patient ABO/Rh Antibody Screen 11/25/19 05:00 WBC RBC Hgb Hct MCV MCH MCHC RDW Plt Count MPV Immature Gran % Neutrophils % Lymphocytes % Monocytes % Eosinophils % Basophils % Absolute Neutrophils Absolute Lymphocytes Absolute Monocytes Absolute Eosinophils Absolute Basophils PT INR Sodium Potassium Chloride Carbon Dioxide Anion Gap BUN Creatinine Estimated GFR/1.73 m2 Glucose Calcium Magnesium Total Bilirubin AST ALT Alkaline Phosphatase Troponin I Total Protein Albumin Patient ABO/Rh A Positive Antibody Screen Positive Last Vital Signs Temp 37 C 11/25/19 04:40 Pulse 90 11/25/19 06:15 Resp 26 H 11/25/19 06:20 BP 137/56 L 11/25/19 06:15 Pulse Ox 97 11/25/19 06:15 COVID-19 Screening Have you,or household,traveled outside [place] in last 14 days?: No Had IN PERSON contact w/suspected or confirmed C-19 person: No
[2019-11-25] MEDS: oxyCODONE 5 MG TAB PO ×2 (09:17→20:34)
[2019-11-25] MEDS: Mylanta Suspension 30 ML CUP PO ×2 (09:18→18:42)
[2019-11-25] MEDS: Lactated Ringers 1,000 ML 150 ML IV ×3 (09:29→22:48)
[2019-11-25] MEDS: Rifaximin 550 MG TAB PO ×2 (10:50→20:33)
[2019-11-25] MEDS: Lisinopril 20 MG TAB PO (10:50)
[2019-11-25] MEDS: Sucralfate 1 GM TAB PO ×3 (10:50→21:26)
[2019-11-25] MEDS: Normal Saline Flush 10 ML SYR IVP ×2 (16:00→20:33)
[2019-11-25 16:17] LABS: HCT 26.7 % (40.0-50.0); HGB 8.5 g/dL (13.5-17.5); MCH 29.5 pg (27.0-33.0); MCHC 31.8 % (32.0-36.0); MCV 92.7 fL (80-95); MPV 8.4 fL (8.0-11.0); Platelet Count 176 10^3/uL (130-400); RBC 2.88 10^6/uL (4.36-5.78); RDW 15.6 % (11.8-14.1); RDW-SD 52.7 fL; WBC 5.45 10^3/uL (4.4-10.8)
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
[2019-11-25] MEDS: Pantoprazole 40 MG VIAL IVP (20:33)
[2019-11-25] MEDS: Lactulose 20 GM/30 ML CUP PO (20:33)
[2019-11-25 21:46] LABS: COVID-19 RT-PCR UVMMC Result Negative (Negative)
[2019-11-25 22:20] LABS: HCT 26.6 % (40.0-50.0); HGB 8.5 g/dL (13.5-17.5)
--- NOTE | 2019-11-25 22:38 | NUR.NOTE ---
Nursing Note: Blood ordered at 17:37. At approximately 22:00 asked when blood would be ready for patient. Lab informed charge nurse that blood was not in house and would be coming tomorrow, as long as it was not emergent. notified and wanted a Stat H/H drawn. H/H stable, blood to come in tomorrow. Will continue to monitor.
[2019-11-25] MEDS: Lactated Ringers 250 ML 1000 ML IV (23:40)
[2019-11-26] VITALS (19 sets, daily range): BP systolic 98–120; BP diastolic 42–70; PULSE 63–81; RESP 16–19; TEMP 36–37.6; O2SAT 92–100
[2019-11-26] MEDS: Lactated Ringers 1,000 ML 150 ML IV (04:55)
[2019-11-26 07:08] LABS: Abs Immature Grans 0.02 10^3/uL (0.0-0.06); Absolute Basophil Count 0.02 10^3/uL (0.0-0.2); Absolute Eosinophil Count 0.21 10^3/uL (0.0-0.7); Absolute Lymphocyte Count 1.24 10^3/uL (1.2-3.4); Absolute Monocyte Count 0.39 10^3/uL (0.1-0.8); Absolute Neutrophil Count 1.61 10^3/uL (1.2-6.7); Basophils % 0.6; HCT 27.3 % (40.0-50.0); HGB 8.8 g/dL (13.5-17.5); Immature Grans % 0.6; Lymphocytes % 35.5; MCH 30.3 pg (27.0-33.0); MCHC 32.2 % (32.0-36.0); MCV 94.1 fL (80-95); MPV 8.5 fL (8.0-11.0); Monocytes % 11.2; Neutrophils % 46.1; Nucleated RBC 0 %; Platelet Count 176 10^3/uL (130-400); RDW 15.9 % (11.8-14.1); WBC 3.49 10^3/uL (4.4-10.8)
[2019-11-26 07:22] LABS: ALT 20 U/L (16-63); AST 30 U/L (15-37); Albumin 2.5 g/dL (3.4-5.0); Alkaline Phosphatase 191 U/L (46-116); Anion Gap 7.3 mmol/L (3-11); BUN 12 mg/dL (7-18); Bilirubin, Total 0.6 mg/dL (0.2-1.0); CO2 26.7 mmol/L (21.0-32.0); CREATININE 0.89 mg/dL (0.70-1.30); Calcium 8.5 mg/dL (8.5-10.1); Chloride 108 mmol/L (98-107); Glucose 101 mg/dL (74-106); Potassium 4.1 mmol/L (3.5-5.1); Sodium 142 mmol/L (136-145); Total Protein 5.8 g/dL (6.4-8.2)
--- NOTE | 2019-11-26 07:28 | PGE_ITS ---
Documented by User: [email or web address] Patiño 11/26/19 07:32 Date of Service Date of service: 11/26/19 Time of Service: 07:28 Assessment and Plan Assessment and plan (1) Melena: Status: Acute Assessment and plan: Last BM 11/24 around 1300, which was melena. Abdominal pain improving. (+) Nausea w/o vomiting. Will continue NPO at this time. Hgb has been stable yesterday and this morning. Subjective Subjective Interval history since last seen: Patient reports that he has not had any BMs since yesterday around 1300, which he describes as black stool. Complains of nausea without vomiting. Stomach feels upset, but much better than yesterday. Exam Const General: cooperative, healthy appearing and comfortable Orientation: alert and oriented x3 GI Inspection: normal to inspection Palpation: soft, no guarding and nontender Objective Objective Clinical Data: Abnormal lab results 11/25/19 11/25/19 11/25/19 Range/Units 05:00 16:08 22:10 WBC (4.4-10.8) 10^3/uL RBC 2.88 L (4.36-5.78) 10^6/uL Hgb 8.5 L 8.5 L (13.5-17.5) g/dL Hct 26.7 L 26.6 L (40.0-50.0) % MCHC 31.8 L (32.0-36.0) % RDW 15.6 H (11.8-14.1) % Chloride (98-107) mmol/L Alkaline Phosphatase (46-116) U/L Total Protein (6.4-8.2) g/dL Albumin (3.4-5.0) g/dL Crossmatch See Detail 11/26/19 11/26/19 Range/Units 06:14 06:14 WBC 3.49 L D (4.4-10.8) 10^3/uL RBC 2.90 L (4.36-5.78) 10^6/uL Hgb 8.8 L (13.5-17.5) g/dL Hct 27.3 L (40.0-50.0) % MCHC (32.0-36.0) % RDW 15.9 H (11.8-14.1) % Chloride 108 H (98-107) mmol/L Alkaline Phosphatase 191 H (46-116) U/L Total Protein 5.8 L (6.4-8.2) g/dL Albumin 2.5 L (3.4-5.0) g/dL Crossmatch Vital Signs Temperature 37.1 C 11/26/19 03:10 Temperature Source Tympanic 11/26/19 03:10 Pulse 63 11/26/19 03:10 Pulse Rhythm Regular 11/26/19 03:02 Pulse 93 H 11/25/19 07:15 Respiratory Rate 17 11/26/19 03:10 Respiratory Effort Non-Labored 11/26/19 03:02 Respiratory Depth Normal 11/26/19 03:02 Respiratory Pattern Normal 11/26/19 03:02 Blood Pressure 103/63 11/26/19 03:10 Blood Pressure Mean 79 11/25/19 07:15 Blood Pressure Position Supine 11/25/19 04:40 Pulse Oximetry 96 11/26/19 03:10 Oxygen Delivery Method Room Air 11/26/19 03:10 Oxygen Flow Rate 0 11/26/19 03:10 Pain Level 0 11/25/19 23:20 Comment 11/25/19 23:57 Intake & Output 11/25/19 11/26/19 11/26/19 18:59 06:59 18:59 Intake Total 1250 / 3327.5 2077.5 / 3327.5 Output Total 1175 / 1675 500 / 1675 Balance 75 / 1652.5 1577.5 / 1652.5 Weight 88.451 kg 88.1 kg Intake: IV 1000 / 3077.5 2077.5 / 3077.5 Oral 250 / 250 Output: Urine 1175 / 1675 500 / 1675 Other: Urine Color Yellow Yellow Urine Appearance Clear Clear Urine Odor None Normal Stool Size Small Stool Characteristics Soft Soft Formed Liquid Green Voiding Methods Urinal Urinal Laboratory Results WBC 3.49 10^3/uL (4.4-10.8) L D 11/26/19 06:14 RBC 2.90 10^6/uL (4.36-5.78) L 11/26/19 06:14 Hgb 8.8 g/dL (13.5-17.5) L 11/26/19 06:14 Hct 27.3 % (40.0-50.0) L 11/26/19 06:14 MCV 94.1 fL (80-95) 11/26/19 06:14 MCH 30.3 pg (27.0-33.0) 11/26/19 06:14 MCHC 32.2 % (32.0-36.0) 11/26/19 06:14 RDW 15.9 % (11.8-14.1) H 11/26/19 06:14 Plt Count 176 10^3/uL (130-400) 11/26/19 06:14 MPV 8.5 fL (8.0-11.0) 11/26/19 06:14 Immature Gran % 0.6 11/26/19 06:14 Neutrophils % 46.1 11/26/19 06:14 Lymphocytes % 35.5 11/26/19 06:14 Monocytes % 11.2 11/26/19 06:14 Eosinophils % 6.0 11/26/19 06:14 Basophils % 0.6 11/26/19 06:14 Absolute Neutrophils 1.61 10^3/uL (1.2-6.7) 11/26/19 06:14 Absolute Lymphocytes 1.24 10^3/uL (1.2-3.4) 11/26/19 06:14 Absolute Monocytes 0.39 10^3/uL (0.1-0.8) 11/26/19 06:14 Absolute Eosinophils 0.21 10^3/uL (0.0-0.7) 11/26/19 06:14 Absolute Basophils 0.02 10^3/uL (0.0-0.2) 11/26/19 06:14 PT 11.6 sec (9.3-11.0) H 11/25/19 05:00 INR 1.2 (0.9-1.1) H 11/25/19 05:00 Sodium 142 mmol/L (136-145) 11/26/19 06:14 Potassium 4.1 mmol/L (3.5-5.1) 11/26/19 06:14 Chloride 108 mmol/L (98-107) H 11/26/19 06:14 Carbon Dioxide 26.7 mmol/L (21.0-32.0) 11/26/19 06:14 Anion Gap 7.3 mmol/L (3-11) 11/26/19 06:14 BUN 12 mg/dL (7-18) D 11/26/19 06:14 Creatinine 0.89 mg/dL (0.70-1.30) 11/26/19 06:14 Estimated GFR/1.73 m2 >= 60.00 (mL/min/1.73m2) 11/26/19 06:14 Glucose 101 mg/dL (74-106) D 11/26/19 06:14 Hemoglobin A1c Cancelled 11/25/19 20:00 Calcium 8.5 mg/dL (8.5-10.1) 11/26/19 06:14 Magnesium 2.0 mg/dL (1.8-2.4) 11/25/19 05:00 Total Bilirubin 0.6 mg/dL (0.2-1.0) 11/26/19 06:14 AST 30 U/L (15-37) 11/26/19 06:14 ALT 20 U/L (16-63) 11/26/19 06:14 Alkaline Phosphatase 191 U/L (46-116) H 11/26/19 06:14 Troponin I < 0.05 ng/mL (<0.06) 11/25/19 05:00 Total Protein 5.8 g/dL (6.4-8.2) L 11/26/19 06:14 Albumin 2.5 g/dL (3.4-5.0) L 11/26/19 06:14 COVID-19 PCR Negative (Negative) 11/25/19 06:57 Nasopharyn COVID-19 PCR Not Applicable 11/25/19 06:57 Ref Test Perform Site [facility] lab 11/25/19 06:57 Patient ABO/Rh A Positive 11/25/19 05:00 Antibody Screen Positive 11/25/19 05:00 Antibody Identification Anti-E Anti-c 11/25/19 05:00 Antibody Identification Anti-E Anti-c 11/25/19 05:00 Crossmatch See Detail 11/25/19 05:00 Documented by User: Sari Yusuf DO 11/26/19 12:33 Assessment and Plan Assessment and plan (1) Anemia: Status: Chronic Qualifiers: Anemia type: unspecified type Qualified Code(s): D64.9 - Anemia, unspecified (2) Nausea & vomiting: Status: Acute Assessment and plan: pt was talking lots of ibuprofen for rib pain. mostly c/o nausea. BM was dark, no gross blood. no appetite. no problems w/ varices since he had the TIPS- about 5 yrs ago. He did have an ulcer last yr that was cauterized [place] [facility] [place] GI is at [facility]. Dr. Rosales. no pain- just nausea. He is not sure if carafate helps. Nausea has been slowing getting better. Had BM this am- still black. c/o more nausea than pain. denies CP, SOB, dizzy or lightheadedness. -pt has not been transfused -pt unsure if carafate is helping. -pt BP was stable over the weekend. He has not been taking his lisinopril at home. He did receive it here and know his BP's are soft. Informed consent is obtained for the procedural (explained in simple layman's terms that the pt and/or family could understand) explaining risks vs benefits and alternatives to the procedure and consequences if we do not do the procedure and need/rational for the procedure. Risks include but are not limited to: bleeding, infection, perforation of esophagus, stomach, colon, small intestines, bronchus or trachea, or PTX. This would necessitate emergency surgery to repair the damage w/ possible ostomy; and other associated complications w/ the required surgery. Also complications of anesthesia including aspiration, NE/CVA/. Qualifiers: Vomiting type: unspecified Vomiting Intractability: intractable Qualified Code(s): R11.2 - Nausea with vomiting, unspecified
[2019-11-26] MEDS: Pantoprazole 40 MG VIAL IVP ×2 (07:33→19:58)
[2019-11-26] MEDS: Normal Saline Flush 10 ML SYR IVP ×4 (07:34→21:25)
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
[2019-11-26] MEDS: Ondansetron 4 MG/2 ML VIAL IVP (09:00)
--- NOTE | 2019-11-26 09:01 | PDOC.CMPRO ---
- If Service Date Differs Date of service: 11/26/19 Time of Service: 09:01 Care Management Progress Note S/O:Dong was lying in bed when CM met with him. He was pleasant and engaged readily in conversation. This morning Dong had an EGD which revealed 6 large gastric ulcers. He had a picture of them at his bedside which he shared with CM. He is receiving a unit of blood today and reported that he will remain in the hospital at least another couple of days. Overall, he states that he feels better, but still has almost continuous nausea, although he is not vomiting. A: Dong is a 64 year old man admitted on 11/25/19 with emesis and melena P: Dong will likely be discharged home with no new services. He will follow up with his PCP and discharge plan of care. He will transport with friends via private vehicle. CM will continue to support K[place] and assess for ongoing discharge needs.
[2019-11-26] MEDS: oxyCODONE 5 MG TAB PO ×2 (09:25→21:24)
--- NOTE | 2019-11-26 11:20 | PHACLINREV_ITS ---
Pharmacy Admission Review - Admission Clinical Review (Last Updated 11/25/19 @ 17:00 by Praneeth Mckenzie) Melena (Acute) Nausea & vomiting (Acute) zolpidem [From Ambien] Adverse Reaction (Verified 11/25/19 04:47) Height 5 ft 4 in Weight 88.1 kg - Renal Dosing Renal Dosing: BUN 12 mg/dL (7-18) D 11/26/19 06:14 Creatinine 0.89 mg/dL (0.70-1.30) 11/26/19 06:14 Medications needing adjustments: Reviewed (Crcl ~81.8 mL/min current meds okay) - Anticoagulation Anticoagulation: Hgb 8.8 g/dL (13.5-17.5) L 11/26/19 06:14 Hct 27.3 % (40.0-50.0) L 11/26/19 06:14 Plt Count 176 10^3/uL (130-400) 11/26/19 06:14 INR 1.2 (0.9-1.1) H 11/25/19 05:00 Creatinine 0.89 mg/dL (0.70-1.30) 11/26/19 06:14 DVT Prohphylaxis: Reviewed (melena, has order for transfusion) Therapeutic Anticoagulation: N/A - Opiate Usage Evaluate Pain Scale/Pains Meds: Reviewed Scheduled Bowel Reg ordered if on Opiates?: No (has prn meds ordered) - Relevant Labs Sodium 142 mmol/L (136-145) 11/26/19 06:14 Potassium 4.1 mmol/L (3.5-5.1) 11/26/19 06:14 Chloride 108 mmol/L (98-107) H 11/26/19 06:14 Magnesium 2.0 mg/dL (1.8-2.4) 11/25/19 05:00 Electrolytes, C-Reactive P, ESR: Reviewed - DM Control DM Control: Glucose 101 mg/dL (74-106) D 11/26/19 06:14 Hemoglobin A1c Cancelled 11/25/19 20:00 Finger Stick Blood Glucose 121 Finger Stick Blood Glucose 121 Insulin Dosing: Reviewed (sliding scale aspart orderd, no DM noted in pt's medical history but previous A1Cs from this year were elevated) - Heart Failure/LA Heart Failure/LA: Troponin I < 0.05 ng/mL (<0.06) 11/25/19 05:00 EF%, VICKEY's, B-Blockers, Diuretics: N/A - BP Control BP Control: Blood Pressure 98/42 Blood Pressure 99/45 Blood Pressure 110/52 Blood Pressure 103/63 Blood Pressure 90/58 If elevated: Intervened (hypotensive, lisinopril listed on home med list but unsure if pt taking regularly based on external med history. Mentioned to provider who discontinued order today an will monitor/may restart at lower dose tomorrow.) - Qtc Review If Elevated: N/A (QTc 458 has ondansetron and promethazine ordered PRN) - IV to PO Switch IV Medications: Reviewed - Home Meds Home Med List reviewed: Intervened (per external med history only 2 meds have been picked up from the pharmacy in the past year. The pt had both valsartan and lisinopril listed on home med list. Lisinopril was listed in the most recent clinic visit note and was ordered on last admission. Also asked provider about lacutlose dosing (dosing was changed from home dose). Ibuprofen may diminish the therapeutic effect of furosemide; furosemide may enhance the nephrotoxic effect of ibuprofen.) Relevent Home Meds Not ordered & why?: benzocaine-menthol (PRN), leslee calciferol, empagliflozin (has sliding scale aspart ordered), furosemide, ibuprofen (avoiding NSAIDs), lisinopril (discontinued due to low BP), multivitamin - Current meds Current Medication Order Review: Intervened (Progress note mentions avoiding acetaminophen due to cirrhosis and that pt really should not need narcotics for pain. Mentioned to provider pt has 2 PRN acetaminophen orders and oxycodone still ordered. Pt also has today orders for one time dose of premeds prior to transfusion, will discontinue these once administered as there is no stop time) - Comments Comments/Follow Ups: Watch BP, BG, H/H, and for med changes (possible restart lisinopril, possible d/c acetaminophen and oxycodone, avoiding NSAIDs).
--- NOTE | 2019-11-26 12:33 | W.PM.ENDDOP ---
Date of service: 11/26/19 Time of Service: 12:33 Endoscopy Report DATE OF PROCEDURE: 11/26/19 PRE-OP DIAGNOSIS: anemia/nausea POST-OP DIAGNOSIS: other (x6 duodenal ulcers in 1,2,3, portiosn of duodenum. sm hiatal hernia & esophagitis. no signif varices ) SURGEON: Sari Yusuf ANESTHESIA: MAC PATHOLOGY: none sent COMPLICATIONS: None DISPOSITION: floor PROCEDURE DESCRIPTION: After informed consent was obtained the patient was take to the procedure room and placed in a supine position. Monitors were applied and a time out was done. The patients name, date of , procedure type, allergies to medications and metal in their body was reviewed. A bite block was placed and the patient was sedated. Once sedated and comfortable the gastroscope was advanced through the oropharynx which was grossly normal into the esophagus. The proximal and mid-esophagus were minimal varices- Grade I. No active bleeding. In the distal esophagus there was esophagitis- mild noted. The scope was advanced into the stomach and through the pylorus into the 3rd portion of the duodenum. The duodenum was noted to be x6 lg ulcers of the 1,2, &3 portions. Basically it is all ulcer w/ a few areas of normal tissue in- between. There was no adeherent clot or active bleeding. No visible vessel. The scope was retracted back into the stomach and biopsies were not done. The scope was retroflexed. The cardia and fundus were noted to be normal. There sm.a hiatal hernia noted. The scope was retracted back into the esophagus and biopsies were not done. The scope was removed and the patient was woken up and taken back to [facility] in stable condition. Follow up:
[2019-11-26] MEDS: Lactated Ringers 1,000 ML 75 ML IV (12:41)
[2019-11-26] MEDS: Sucralfate 1 GM TAB PO ×2 (13:20→21:24)
[2019-11-26] MEDS: diphenhydrAMINE 25 MG CAP PO (14:05)
[2019-11-26] MEDS: Acetaminophen 325 MG TAB 650 MG PO (14:06)
[2019-11-26] MEDS: Lactulose 20 GM/30 ML CUP PO (19:58)
[2019-11-26] MEDS: Rifaximin 550 MG TAB PO (19:58)
[2019-11-26] MEDS: miSOPROStol 100 MCG TAB PO (20:01)
[2019-11-26] MEDS: Gabapentin 300 MG CAP PO (21:24)
[2019-11-26] MEDS: IRON SUCROSE COMPLEX 200 MG in Normal Saline 100 ML 400 MG IVPB (21:24)
[2019-11-26 21:59] LABS: HCT 33.4 % (40.0-50.0); HGB 10.8 g/dL (13.5-17.5)
[2019-11-27] MEDS: Lactated Ringers 1,000 ML 75 ML IV (01:47)
[2019-11-27] MEDS: Normal Saline Flush 10 ML SYR IVP ×3 (03:31→19:50)
[2019-11-27] MEDS: Ondansetron 4 MG/2 ML VIAL IVP (03:31)
[2019-11-27 05:45] VITALS: BP 110/60; PULSE 63; RESP 18; TEMP 36.4; O2SAT 92
--- NOTE | 2019-11-27 07:15 | W.PM.PROGNOT ---
Documented by User: [email or web address] Patiño 11/27/19 07:18 Date of Service Date of service: 11/27/19 Time of Service: 07:15 Assessment and Plan Assessment and plan (1) Melena: Status: Acute Assessment and plan: Tolerating clear liquids. No abdominal pain, nausea or vomiting. Continue Protonix BID Encouraged activity OOB AM labs are pending Subjective Subjective Interval history since last seen: Patient reports that he is feeling better today. (+) 2 Dark colored stools last night. He denies any abdominal pain, nausea or vomiting overnight. Exam Const General: cooperative, healthy appearing and comfortable Orientation: alert and oriented x3 Resp Effort & Inspection: normal respiratory effort and no cough GI Inspection: normal to inspection Palpation: soft, no guarding and nontender Objective Objective Clinical Data: Abnormal lab results 11/25/19 11/26/19 11/26/19 Range/Units 05:00 06:14 06:14 WBC 3.49 L D (4.4-10.8) 10^3/uL RBC 2.90 L (4.36-5.78) 10^6/uL Hgb 8.8 L (13.5-17.5) g/dL Hct 27.3 L (40.0-50.0) % RDW 15.9 H (11.8-14.1) % Chloride 108 H (98-107) mmol/L Alkaline Phosphatase 191 H (46-116) U/L Total Protein 5.8 L (6.4-8.2) g/dL Albumin 2.5 L (3.4-5.0) g/dL Crossmatch See Detail 11/26/19 Range/Units 21:45 WBC (4.4-10.8) 10^3/uL RBC (4.36-5.78) 10^6/uL Hgb 10.8 L (13.5-17.5) g/dL Hct 33.4 L D (40.0-50.0) % RDW (11.8-14.1) % Chloride (98-107) mmol/L Alkaline Phosphatase (46-116) U/L Total Protein (6.4-8.2) g/dL Albumin (3.4-5.0) g/dL Crossmatch Vital Signs Temperature 36.4 C L 11/27/19 05:45 Temperature Source Tympanic 11/27/19 05:45 Pulse 63 11/27/19 05:45 Pulse Rhythm Regular 11/27/19 03:35 Pulse 93 H 11/25/19 07:15 Respiratory Rate 18 11/27/19 05:45 Respiratory Effort Non-Labored 11/27/19 03:35 Respiratory Depth Normal 11/27/19 03:35 Respiratory Pattern Normal 11/27/19 03:35 Blood Pressure 110/60 11/27/19 05:45 Blood Pressure Mean 79 11/25/19 07:15 Blood Pressure Position Supine 11/25/19 04:40 Pulse Oximetry 92 L 11/27/19 05:45 Oxygen Delivery Method Room Air 11/27/19 05:45 Oxygen Flow Rate 0 11/27/19 05:45 Pain Level 0 11/27/19 05:45 Comment 11/26/19 23:23 Intake & Output 11/26/19 11/27/19 11/27/19 18:59 06:59 18:59 Intake Total 1580 / 3343.75 1763.75 / 3343.75 Output Total 1350 / 3430 2080 / 3430 Balance 230 / -86.25 -316.25 / -86.25 Weight 87.3 kg Intake: IV 920 / 2033.75 1113.75 / 2033.75 Oral 290 / 690 400 / 690 Blood Product 250 / 500 250 / 500 Rbc Leuko Reduced Unit 250 / 250 [id number] Rbc Leuko Reduced Unit 250 / 250 [id number] Other 120 / 120 Rbc Leuko Reduced Unit 120 / 120 [id number] Output: Urine 1350 / 3330 1980 / 3330 Stool 100 / 100 Other: Urine Color Yellow Light Treva Urine Appearance Clear Clear Urine Odor Normal Normal Comment Void x1 in the urinal. Stool Occult Blood Positive Stool Size Moderate Moderate Stool Characteristics Soft Soft Black Liquid Voiding Methods Urinal Urinal Laboratory Results WBC 3.49 10^3/uL (4.4-10.8) L D 11/26/19 06:14 RBC 2.90 10^6/uL (4.36-5.78) L 11/26/19 06:14 Hgb 10.8 g/dL (13.5-17.5) L 11/26/19 21:45 Hct 33.4 % (40.0-50.0) L D 11/26/19 21:45 MCV 94.1 fL (80-95) 11/26/19 06:14 MCH 30.3 pg (27.0-33.0) 11/26/19 06:14 MCHC 32.2 % (32.0-36.0) 11/26/19 06:14 RDW 15.9 % (11.8-14.1) H 11/26/19 06:14 Plt Count 176 10^3/uL (130-400) 11/26/19 06:14 MPV 8.5 fL (8.0-11.0) 11/26/19 06:14 Immature Gran % 0.6 11/26/19 06:14 Neutrophils % 46.1 11/26/19 06:14 Lymphocytes % 35.5 11/26/19 06:14 Monocytes % 11.2 11/26/19 06:14 Eosinophils % 6.0 11/26/19 06:14 Basophils % 0.6 11/26/19 06:14 Absolute Neutrophils 1.61 10^3/uL (1.2-6.7) 11/26/19 06:14 Absolute Lymphocytes 1.24 10^3/uL (1.2-3.4) 11/26/19 06:14 Absolute Monocytes 0.39 10^3/uL (0.1-0.8) 11/26/19 06:14 Absolute Eosinophils 0.21 10^3/uL (0.0-0.7) 11/26/19 06:14 Absolute Basophils 0.02 10^3/uL (0.0-0.2) 11/26/19 06:14 PT 11.6 sec (9.3-11.0) H 11/25/19 05:00 INR 1.2 (0.9-1.1) H 11/25/19 05:00 Sodium 142 mmol/L (136-145) 11/26/19 06:14 Potassium 4.1 mmol/L (3.5-5.1) 11/26/19 06:14 Chloride 108 mmol/L (98-107) H 11/26/19 06:14 Carbon Dioxide 26.7 mmol/L (21.0-32.0) 11/26/19 06:14 Anion Gap 7.3 mmol/L (3-11) 11/26/19 06:14 BUN 12 mg/dL (7-18) D 11/26/19 06:14 Creatinine 0.89 mg/dL (0.70-1.30) 11/26/19 06:14 Estimated GFR/1.73 m2 >= 60.00 (mL/min/1.73m2) 11/26/19 06:14 Glucose 101 mg/dL (74-106) D 11/26/19 06:14 Hemoglobin A1c Cancelled 11/25/19 20:00 Calcium 8.5 mg/dL (8.5-10.1) 11/26/19 06:14 Magnesium 2.0 mg/dL (1.8-2.4) 11/25/19 05:00 Total Bilirubin 0.6 mg/dL (0.2-1.0) 11/26/19 06:14 AST 30 U/L (15-37) 11/26/19 06:14 ALT 20 U/L (16-63) 11/26/19 06:14 Alkaline Phosphatase 191 U/L (46-116) H 11/26/19 06:14 Troponin I < 0.05 ng/mL (<0.06) 11/25/19 05:00 Total Protein 5.8 g/dL (6.4-8.2) L 11/26/19 06:14 Albumin 2.5 g/dL (3.4-5.0) L 11/26/19 06:14 COVID-19 PCR Negative (Negative) 11/25/19 06:57 Nasopharyn COVID-19 PCR Not Applicable 11/25/19 06:57 Ref Test Perform Site [facility] lab 11/25/19 06:57 Patient ABO/Rh A Positive 11/25/19 05:00 Antibody Screen Positive 11/25/19 05:00 Antibody Identification Anti-E Anti-c 11/25/19 05:00 Antibody Identification Anti-E Anti-c 11/25/19 05:00 Crossmatch See Detail 11/25/19 05:00 Documented by User: Reba Jones MD 11/27/19 15:30
[2019-11-27 07:28] VITALS: BP 110/63; PULSE 64; RESP 18; TEMP 36.8; O2SAT 96
[2019-11-27 07:30] LABS: Abs Immature Grans 0.01 10^3/uL (0.0-0.06); Absolute Basophil Count 0.03 10^3/uL (0.0-0.2); Absolute Eosinophil Count 0.22 10^3/uL (0.0-0.7); Absolute Lymphocyte Count 1.08 10^3/uL (1.2-3.4); Absolute Monocyte Count 0.54 10^3/uL (0.1-0.8); Absolute Neutrophil Count 2.07 10^3/uL (1.2-6.7); Basophils % 0.8; Eosinophils % 5.6; HCT 30.9 % (40.0-50.0); HGB 10.4 g/dL (13.5-17.5); Immature Grans % 0.3; Lymphocytes % 27.3; MCH 30.3 pg (27.0-33.0); MCHC 33.7 % (32.0-36.0); MCV 90.1 fL (80-95); MPV 8.7 fL (8.0-11.0); Monocytes % 13.7; Neutrophils % 52.3; Nucleated RBC 0 %; Platelet Count 183 10^3/uL (130-400); RBC 3.43 10^6/uL (4.36-5.78); RDW 15.7 % (11.8-14.1); RDW-SD 51.1 fL; WBC 3.95 10^3/uL (4.4-10.8)
[2019-11-27 07:42] LABS: ALT 24 U/L (16-63); AST 32 U/L (15-37); Albumin 2.5 g/dL (3.4-5.0); Alkaline Phosphatase 180 U/L (46-116); Anion Gap 7.6 mmol/L (3-11); BUN 13 mg/dL (7-18); Bilirubin, Total 1.2 mg/dL (0.2-1.0); CO2 26.4 mmol/L (21.0-32.0); CREATININE 0.85 mg/dL (0.70-1.30); Calcium 8.4 mg/dL (8.5-10.1); Chloride 107 mmol/L (98-107); Glucose 104 mg/dL (74-106); Sodium 141 mmol/L (136-145); Total Protein 5.7 g/dL (6.4-8.2)
[2019-11-27] MEDS: Pantoprazole 40 MG VIAL IVP ×2 (07:50→19:50)
[2019-11-27] MEDS: Lactulose 20 GM/30 ML CUP PO ×2 (07:50→19:50)
[2019-11-27] MEDS: miSOPROStol 100 MCG TAB PO ×2 (07:50→19:50)
[2019-11-27] MEDS: Sucralfate 1 GM TAB PO ×4 (07:50→21:33)
[2019-11-27] MEDS: Rifaximin 550 MG TAB PO ×2 (07:51→19:50)
[2019-11-27] MEDS: oxyCODONE 5 MG TAB PO ×2 (10:40→22:15)
--- NOTE | 2019-11-27 11:17 | PDOC.CMPRO ---
- If Service Date Differs Date of service: 11/27/19 Time of Service: 11:18 Care Management Progress Note S/O: Dong was sitting up in his chair when CM met with him. He stated that he was feeling better today. He reported that per provider, he will likely be discharged tomorrow. He reported that he would like assistance with getting a ride to and from the grocery store, as he does not have a car and it is difficult for him to get around. He did report that he can take the [employer] bus, but it is challenging at times. CM will explore options for Dong, such as [employer] and [employer]. CM will continue to follow. A: Dong is a 64 year old man admitted on 11/25/19 with emesis and melena P: Dong will likely be discharged home with no new services. He will follow up with his PCP and discharge plan of care. He will transport with friends via private vehicle. CM will continue to support Dong and assess for ongoing discharge needs.
[2019-11-27 11:29] VITALS: BP 115/60; PULSE 73; RESP 18; TEMP 36.9; O2SAT 98
--- NOTE | 2019-11-27 12:11 | W.INDIABCONS ---
Date of service: 11/27/19 Time of Service: 12:11 Diabetes Inpatient Consult DESCRIPTION/ASSESSMENT: 64 year old male admitted with melena, n/v s/p EGD with 6 duodenal ulcers now being treated. PMH: recovered alcoholic, NIDDM, s/p TIPS for esophageal varices, Hepc C, anemia and hx of calorie malnutrition. Presents with 17 lbs weight loss in last month (-8% wieght loss), BMI continues to indicate mild obesity. Met with Alonzo today to discuss recent weight loss, educate on diabetes and diet. A1c 6.6%, down from 9% in September 2019. Home meds inlcude glargine, metformin. Alonzo reports his weight loss was voluntary by reducing carbohydrate intake and exercising, either walking or biking daily. Goal weight was listed as 165-175 lbs. He reports checking his BS and they are typically in range of 91-130 mg in AM as fasting and below 150 mg/dl after meals. Reviewed nutrient needs and diabetes &diet principles. Alonzo is knowledgeable about how to manage his diabetes with life style changes and has made many positive behavioral changes to improve his health and reduce complications associated with DM. 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 INTERVENTION: Provided education on DM including Hyper/hypoglycemia s/s with action plan for each scenario. Definition and types of CHO with examples, CHO counting, DASH diet materials, DM meal planning and label reading literature. Provided a blood sugar and food record chart and materials to reiterate CHO counting techniques. Reviewed desirable BG levels with patient with food choices and portions for optimal outcomes. Provided contact information for this RD and encouraged to call with any f/u questions r/t to DM self management. CDM from [employer] has been helping to count CHO's and achieve intake of ~65g/CHO per meal period. PLAN: Continue Diabetic Diet, follow up with scientific writer as outpatient if needs assistance with life style changes that improve NIDDM. Time Spent in Nutritional Counseling and Treatment: 20 min
[2019-11-27 13:37] LABS: HCT 35.1 % (40.0-50.0); HGB 11.2 g/dL (13.5-17.5)
--- NOTE | 2019-11-27 13:57 | CHAPLAIN ---
Alonzo was said he was feeling ok, but he was pleasant and easily engaged in a conversation. I explained my role and offered support. He said he is in touch with family/friends by phone.
--- NOTE | 2019-11-27 15:16 | PGE_ITS ---
Date of Service Date of service: 11/27/19 Time of Service: 15:21 Assessment and Plan Assessment and plan (1) Duodenal ulcer disease: Status: Acute Assessment and plan: 5 nonbleeding duodenal ulcers noted on EGD. Cont oral PPI and carafate. Feeling better. Avoid NSAIDs (2) Anemia: Status: Chronic Assessment and plan: Secondary to GI bleed Hgb improved to 11.2 CBC in AM. D/C if Hgb stable. Qualifiers: Anemia type: unspecified type Qualified Code(s): D64.9 - Anemia, unspecified (3) Cirrhosis: Status: Chronic Assessment and plan: Grade I esophageal varices on EGD. Qualifiers: Hepatic cirrhosis type: unspecified hepatic cirrhosis Ascites presence: without ascites Qualified Code(s): K74.60 - Unspecified cirrhosis of liver Subjective Subjective Patient reports: no new complaints and feels better Interval history since last seen: Loose, black stool this AM. No N/V. Wants to advance diet. Exam Const General: cooperative and no acute distress Nutritional Appearance: overweight Eyes Sclera: sclerae normal Resp Effort & Inspection: normal respiratory effort Auscultation: clear to auscultation bilaterally Cardio Rate: regular rate Rhythm: regular rhythm Heart Sounds: S1 normal and S2 normal GI Palpation: soft and tender (mild epigastric) Auscultation: hypoactive bowel sounds Extrem General: no clubbing, cyanosis or edema Objective Objective Clinical Data: Abnormal lab results 11/25/19 11/26/19 11/27/19 Range/Units 05:00 21:45 06:32 WBC (4.4-10.8) 10^3/uL RBC (4.36-5.78) 10^6/uL Hgb 10.8 L (13.5-17.5) g/dL Hct 33.4 L D (40.0-50.0) % RDW (11.8-14.1) % Absolute Lymphocytes (1.2-3.4) 10^3/uL Calcium 8.4 L (8.5-10.1) mg/dL Total Bilirubin 1.2 H (0.2-1.0) mg/dL Alkaline Phosphatase 180 H (46-116) U/L Total Protein 5.7 L (6.4-8.2) g/dL Albumin 2.5 L (3.4-5.0) g/dL Crossmatch See Detail 11/27/19 11/27/19 Range/Units 06:32 13:20 WBC 3.95 L (4.4-10.8) 10^3/uL RBC 3.43 L (4.36-5.78) 10^6/uL Hgb 10.4 L 11.2 L (13.5-17.5) g/dL Hct 30.9 L 35.1 L (40.0-50.0) % RDW 15.7 H (11.8-14.1) % Absolute Lymphocytes 1.08 L (1.2-3.4) 10^3/uL Calcium (8.5-10.1) mg/dL Total Bilirubin (0.2-1.0) mg/dL Alkaline Phosphatase (46-116) U/L Total Protein (6.4-8.2) g/dL Albumin (3.4-5.0) g/dL Crossmatch Vital Signs Temperature 36.9 C 11/27/19 11:29 Temperature Source Tympanic 11/27/19 11:29 Pulse 73 11/27/19 11:29 Pulse Rhythm Regular 11/27/19 07:50 Pulse 93 H 11/25/19 07:15 Respiratory Rate 18 11/27/19 11:29 Respiratory Effort Non-Labored 11/27/19 07:50 Respiratory Depth Normal 11/27/19 07:50 Respiratory Pattern Normal 11/27/19 07:50 Blood Pressure 115/60 11/27/19 11:29 Blood Pressure Mean 79 11/25/19 07:15 Blood Pressure Position Supine 11/25/19 04:40 Pulse Oximetry 98 11/27/19 11:29 Oxygen Delivery Method Room Air 11/27/19 11:29 Oxygen Flow Rate 0 11/27/19 11:29 Pain Level 0 11/27/19 11:29 Comment 11/26/19 23:23 Intake & Output 11/26/19 11/27/19 11/27/19 23:59 11:59 23:59 Intake Total 1275 / 3117.5 1393.75 / 1633.75 240 / 1633.75 Output Total 1989 940 / 1090 150 / 1090 Balance -715 / 427.5 453.75 / 543.75 90 / 543.75 Weight 87.3 kg Intake: IV 265 / 2107.5 1093.75 / 1093.75 Oral 390 / 390 300 / 540 240 / 540 Blood Product 500 / 500 Rbc Leuko Reduced Unit 250 / 250 [id number] Rbc Leuko Reduced Unit 250 / 250 [id number] Other 120 / 120 Rbc Leuko Reduced Unit 120 / 120 [id number] Output: Urine 1890 / 2590 940 / 1090 150 / 1090 Stool 100 / 100 Other: Urine Color Yellow Light Treva Light Treva Urine Appearance Clear Clear Clear Urine Odor Normal Normal Comment Void x1 in the urinal. Stool Occult Blood Positive Stool Size Moderate Stool Characteristics Soft Liquid Voiding Methods Urinal Urinal Urinal Laboratory Results WBC 3.95 10^3/uL (4.4-10.8) L 11/27/19 06:32 RBC 3.43 10^6/uL (4.36-5.78) L 11/27/19 06:32 Hgb 11.2 g/dL (13.5-17.5) L 11/27/19 13:20 Hct 35.1 % (40.0-50.0) L 11/27/19 13:20 MCV 90.1 fL (80-95) 11/27/19 06:32 MCH 30.3 pg (27.0-33.0) 11/27/19 06:32 MCHC 33.7 % (32.0-36.0) 11/27/19 06:32 RDW 15.7 % (11.8-14.1) H 11/27/19 06:32 Plt Count 183 10^3/uL (130-400) 11/27/19 06:32 MPV 8.7 fL (8.0-11.0) 11/27/19 06:32 Immature Gran % 0.3 11/27/19 06:32 Neutrophils % 52.3 11/27/19 06:32 Lymphocytes % 27.3 11/27/19 06:32 Monocytes % 13.7 11/27/19 06:32 Eosinophils % 5.6 11/27/19 06:32 Basophils % 0.8 11/27/19 06:32 Absolute Neutrophils 2.07 10^3/uL (1.2-6.7) 11/27/19 06:32 Absolute Lymphocytes 1.08 10^3/uL (1.2-3.4) L 11/27/19 06:32 Absolute Monocytes 0.54 10^3/uL (0.1-0.8) 11/27/19 06:32 Absolute Eosinophils 0.22 10^3/uL (0.0-0.7) 11/27/19 06:32 Absolute Basophils 0.03 10^3/uL (0.0-0.2) 11/27/19 06:32 PT 11.6 sec (9.3-11.0) H 11/25/19 05:00 INR 1.2 (0.9-1.1) H 11/25/19 05:00 Sodium 141 mmol/L (136-145) 11/27/19 06:32 Potassium 4.0 mmol/L (3.5-5.1) 11/27/19 06:32 Chloride 107 mmol/L (98-107) 11/27/19 06:32 Carbon Dioxide 26.4 mmol/L (21.0-32.0) 11/27/19 06:32 Anion Gap 7.6 mmol/L (3-11) 11/27/19 06:32 BUN 13 mg/dL (7-18) 11/27/19 06:32 Creatinine 0.85 mg/dL (0.70-1.30) 11/27/19 06:32 Estimated GFR/1.73 m2 >= 60.00 (mL/min/1.73m2) 11/27/19 06:32 Glucose 104 mg/dL (74-106) 11/27/19 06:32 Hemoglobin A1c Cancelled 11/25/19 20:00 Calcium 8.4 mg/dL (8.5-10.1) L 11/27/19 06:32 Magnesium 2.0 mg/dL (1.8-2.4) 11/25/19 05:00 Total Bilirubin 1.2 mg/dL (0.2-1.0) H 11/27/19 06:32 AST 32 U/L (15-37) 11/27/19 06:32 ALT 24 U/L (16-63) 11/27/19 06:32 Alkaline Phosphatase 180 U/L (46-116) H 11/27/19 06:32 Troponin I < 0.05 ng/mL (<0.06) 11/25/19 05:00 Total Protein 5.7 g/dL (6.4-8.2) L 11/27/19 06:32 Albumin 2.5 g/dL (3.4-5.0) L 11/27/19 06:32 COVID-19 PCR Negative (Negative) 11/25/19 06:57 Nasopharyn COVID-19 PCR Not Applicable 11/25/19 06:57 Ref Test Perform Site [facility] lab 11/25/19 06:57 Patient ABO/Rh A Positive 11/25/19 05:00 Antibody Screen Positive 11/25/19 05:00 Antibody Identification Anti-E Anti-c 11/25/19 05:00 Antibody Identification Anti-E Anti-c 11/25/19 05:00 Crossmatch See Detail 11/25/19 05:00
[2019-11-27 16:13] VITALS: BP 104/52; PULSE 54; RESP 18; TEMP 36.7
[2019-11-27 19:15] VITALS: BP 113/63; PULSE 63; RESP 17; TEMP 36.9; O2SAT 97
[2019-11-27] MEDS: Gabapentin 300 MG CAP PO (21:33)
[2019-11-27 22:52] VITALS: BP 115/66; PULSE 73; RESP 19; TEMP 37.1; O2SAT 94
[2019-11-28 05:17] VITALS: BP 135/75; PULSE 86; RESP 18; TEMP 36.5; O2SAT 94
[2019-11-28] MEDS: Sucralfate 1 GM TAB PO ×2 (06:42→11:45)
[2019-11-28 07:21] LABS: Abs Immature Grans 0.01 10^3/uL (0.0-0.06); Absolute Basophil Count 0.03 10^3/uL (0.0-0.2); Absolute Eosinophil Count 0.22 10^3/uL (0.0-0.7); Absolute Lymphocyte Count 0.99 10^3/uL (1.2-3.4); Absolute Monocyte Count 0.43 10^3/uL (0.1-0.8); Absolute Neutrophil Count 2.25 10^3/uL (1.2-6.7); Basophils % 0.8; Eosinophils % 5.6; HCT 32.1 % (40.0-50.0); HGB 10.7 g/dL (13.5-17.5); Immature Grans % 0.3; Lymphocytes % 25.2; MCH 29.7 pg (27.0-33.0); MCHC 33.3 % (32.0-36.0); MCV 89.2 fL (80-95); MPV 8.9 fL (8.0-11.0); Monocytes % 10.9; Neutrophils % 57.2; Nucleated RBC 0 %; Platelet Count 165 10^3/uL (130-400); RDW 15.4 % (11.8-14.1); RDW-SD 49.7 fL; WBC 3.93 10^3/uL (4.4-10.8)
[2019-11-28 07:33] VITALS: BP 120/58; PULSE 67; RESP 18; TEMP 36.9; O2SAT 99
[2019-11-28] MEDS: Rifaximin 550 MG TAB PO (07:50)
[2019-11-28] MEDS: Normal Saline Flush 10 ML SYR IVP (07:50)
[2019-11-28] MEDS: Pantoprazole 40 MG VIAL IVP (07:50)
[2019-11-28] MEDS: miSOPROStol 100 MCG TAB PO (07:50)
--- NOTE | 2019-11-28 09:03 | W.PM.PROGNOT ---
Date of Service Date of service: 11/28/19 Time of Service: 07:00 Assessment and Plan Assessment and plan (1) Duodenal ulcer disease: Status: Acute Assessment and plan: 5 nonbleeding duodenal ulcers noted on EGD. Cont oral PPI and carafate. Feeling better. Avoid NSAIDs Follow up EGD in 6-8 weeks (2) Anemia: Status: Chronic Assessment and plan: Secondary to GI bleed Hgb improved to 11.2 CBC in AM. D/C if Hgb stable. Qualifiers: Anemia type: unspecified type Qualified Code(s): D64.9 - Anemia, unspecified (3) Cirrhosis: Status: Chronic Assessment and plan: Grade I esophageal varices on EGD. Qualifiers: Hepatic cirrhosis type: unspecified hepatic cirrhosis Ascites presence: without ascites Qualified Code(s): K74.60 - Unspecified cirrhosis of liver Subjective Subjective Interval history since last seen: Alonzo is doing well this am. He has minimal pain along his ribs and shoulder. He is concerned that he is not regaining normal function of his shoulder. HAs a follow up appointment with Dr. Be on Dec.10. We discussed that unfortunately for the time being he can no longer take Ibuprofen or tylenol. We discussed trying topical creams like aspercream of he could try arnica Exam GI Inspection: normal to inspection Palpation: soft, no hepatosplenomegaly and nontender Objective Objective Clinical Data: Abnormal lab results 11/27/19 11/28/19 Range/Units 13:20 06:39 WBC 3.93 L (4.4-10.8) 10^3/uL RBC 3.60 L (4.36-5.78) 10^6/uL Hgb 11.2 L 10.7 L (13.5-17.5) g/dL Hct 35.1 L 32.1 L (40.0-50.0) % RDW 15.4 H (11.8-14.1) % Absolute Lymphocytes 0.99 L (1.2-3.4) 10^3/uL Vital Signs Temperature 98.4 F 11/28/19 07:33 Temperature Source Tympanic 11/28/19 07:33 Pulse 67 11/28/19 07:33 Pulse Rhythm Regular 11/28/19 04:28 Pulse 93 H 11/25/19 07:15 Respiratory Rate 18 11/28/19 07:33 Respiratory Effort Non-Labored 11/28/19 04:28 Respiratory Depth Normal 11/28/19 04:28 Respiratory Pattern Normal 11/28/19 04:28 Blood Pressure 120/58 L 11/28/19 07:33 Blood Pressure Mean 79 11/25/19 07:15 Blood Pressure Position Supine 11/25/19 04:40 Pulse Oximetry 99 11/28/19 07:33 Oxygen Delivery Method Room Air 11/28/19 07:33 Oxygen Flow Rate 0 11/28/19 07:33 Pain Level 0 11/28/19 07:33 Comment 11/26/19 23:23 Intake & Output 11/27/19 11/27/19 11/28/19 11:59 23:59 11:59 Intake Total 1393.75 / 1883.75 490 / 1883.75 10 10 Output Total 940 / 1465 525 / 1465 840 / 840 Balance 453.75 / 418.75 -35 / 418.75 -830 / -830 Weight 192 lb 7.417 oz 193 lb 5.526 oz Intake: IV 1093.75 / 1103.75 10 / 1103.75 10 Oral 300 / 780 480 / 780 Output: Urine 940 / 1465 525 / 1465 840 / 840 Other: Urine Color Light Treva Pale Yellow Yellow Urine Appearance Clear Clear Clear Urine Odor Normal Normal Stool Occult Blood Positive Stool Characteristics Liquid Voiding Methods Urinal Toilet Urinal Laboratory Results WBC 3.93 10^3/uL (4.4-10.8) L 11/28/19 06:39 RBC 3.60 10^6/uL (4.36-5.78) L 11/28/19 06:39 Hgb 10.7 g/dL (13.5-17.5) L 11/28/19 06:39 Hct 32.1 % (40.0-50.0) L 11/28/19 06:39 MCV 89.2 fL (80-95) 11/28/19 06:39 MCH 29.7 pg (27.0-33.0) 11/28/19 06:39 MCHC 33.3 % (32.0-36.0) 11/28/19 06:39 RDW 15.4 % (11.8-14.1) H 11/28/19 06:39 Plt Count 165 10^3/uL (130-400) 11/28/19 06:39 MPV 8.9 fL (8.0-11.0) 11/28/19 06:39 Immature Gran % 0.3 11/28/19 06:39 Neutrophils % 57.2 11/28/19 06:39 Lymphocytes % 25.2 11/28/19 06:39 Monocytes % 10.9 11/28/19 06:39 Eosinophils % 5.6 11/28/19 06:39 Basophils % 0.8 11/28/19 06:39 Nucleated RBC % 0 % 11/28/19 06:39 Absolute Neutrophils 2.25 10^3/uL (1.2-6.7) 11/28/19 06:39 Absolute Lymphocytes 0.99 10^3/uL (1.2-3.4) L 11/28/19 06:39 Absolute Monocytes 0.43 10^3/uL (0.1-0.8) 11/28/19 06:39 Absolute Eosinophils 0.22 10^3/uL (0.0-0.7) 11/28/19 06:39 Absolute Basophils 0.03 10^3/uL (0.0-0.2) 11/28/19 06:39 PT 11.6 sec (9.3-11.0) H 11/25/19 05:00 INR 1.2 (0.9-1.1) H 11/25/19 05:00 Sodium 141 mmol/L (136-145) 11/27/19 06:32 Potassium 4.0 mmol/L (3.5-5.1) 11/27/19 06:32 Chloride 107 mmol/L (98-107) 11/27/19 06:32 Carbon Dioxide 26.4 mmol/L (21.0-32.0) 11/27/19 06:32 Anion Gap 7.6 mmol/L (3-11) 11/27/19 06:32 BUN 13 mg/dL (7-18) 11/27/19 06:32 Creatinine 0.85 mg/dL (0.70-1.30) 11/27/19 06:32 Estimated GFR/1.73 m2 >= 60.00 (mL/min/1.73m2) 11/27/19 06:32 Glucose 104 mg/dL (74-106) 11/27/19 06:32 Hemoglobin A1c Cancelled 11/25/19 20:00 Calcium 8.4 mg/dL (8.5-10.1) L 11/27/19 06:32 Magnesium 2.0 mg/dL (1.8-2.4) 11/25/19 05:00 Total Bilirubin 1.2 mg/dL (0.2-1.0) H 11/27/19 06:32 AST 32 U/L (15-37) 11/27/19 06:32 ALT 24 U/L (16-63) 11/27/19 06:32 Alkaline Phosphatase 180 U/L (46-116) H 11/27/19 06:32 Troponin I < 0.05 ng/mL (<0.06) 11/25/19 05:00 Total Protein 5.7 g/dL (6.4-8.2) L 11/27/19 06:32 Albumin 2.5 g/dL (3.4-5.0) L 11/27/19 06:32 COVID-19 PCR Negative (Negative) 11/25/19 06:57 Nasopharyn COVID-19 PCR Not Applicable 11/25/19 06:57 Ref Test Perform Site [facility] lab 11/25/19 06:57 Patient ABO/Rh A Positive 11/25/19 05:00 Antibody Screen Positive 11/25/19 05:00 Antibody Identification Anti-E Anti-c 11/25/19 05:00 Antibody Identification Anti-E Anti-c 11/25/19 05:00 Crossmatch See Detail 11/25/19 05:00
[2019-11-28] MEDS: Lactated Ringers 1,000 ML 30 ML IV (09:30)
--- NOTE | 2019-11-28 10:31 | W.PM.DS.N ---
Date of service: 11/28/19 Time of Service: 10:31 DS: Diagnosis Discharge Diagnosis (1) Duodenal ulcer disease: Status: Acute (2) Anemia: Status: Chronic (3) Cirrhosis: Status: Chronic Discharge Plan Disposition Patient Disposition: HOME Condition: Fair Discharge Details Chief Complaint: GI Bleed Clinical Impression: Nausea & vomiting Reason For Visit: INRACTABLE EMESIS, MELENA WITH DIARRHEA, ALCOHOLIC Admit Date/Time: 11/25/19 06:46 Admit Provider: Tl Dunlap Attending Provider: Tl Dunlap Primary Care Provider: Katia Blanco [facility] Hospital Course: This is a 64-year-old gentleman who is a recovered alcoholic recently with cirrhosis and sequela of his chronic alcoholism. He began to have black tarry loose stools prior to the onset of intractable nausea. Admitted for IV hydration and symptomatic care while trending his hemograms because of recent increased blood in his stool. Of note he was hospitalized in October of 2019 for fractured ribs on the left side, left clavicular fx with pneumothorax. He was on NSAIDs for his pain which may have prompted some of his GI symptoms presently. He was noted to be chronically anemic. IV PPI with oral Carafate initiated. His initial Hgb was 10.4. It decreased to 8.5. He was transfused a unit of RBCs and subsequent hgb values were 10.8 > 10.4 > 11.2 > 10.7. General surgery consulted and EGD was performed. Findings on EGD: 5 duodenal ulcers, nonbleeding at the time of endoscopy and Grade I esophageal varices and mild esophagitis. He was instructed to avoid NSAIDs d/t the ulcerations and to avoid acetaminophen d/t his cirrhosis. OTC arnica or topical aspercreme suggested. He will continue on a PPI and carafate for 1 month. Follow up EGD in 6-8 weeks. Follow up with PCP in 1-2 weeks. Home Meds and New Rx's Prescriptions: New polyethylene glycol 3350 17 gram Powder In Packet 17 g PO DAILY PRN PRN (Reason: Constipation) Qty: 0 RF: 0 sucralfate 1 gram Tablet 1 g PO AC & HS 30 Days Qty: 120 RF: 0 gabapentin 300 mg Capsule 300 mg PO HS Qty: 14 RF: 0 alum-mag hydroxide-simeth [Mag-Al Plus] 200-200-20 mg/5 mL Suspension 30 ml PO Q2H PRN PRNQty: 0 RF: 0 pantoprazole [Protonix] 40 mg tablet,delayed release (DR/EC) 40 mg PO BID Qty: 60 RF: 0 Continued oxycodone 5 mg tablet 5 mg PO Q12H MDD 2 tab PRN (Reason: pain) Qty: 14 RF: 0 Centrum Silver 0.4-300-250 mg-mcg-mcg tablet 1 tab PO DAILY RF: 0 cholecalciferol (vitamin D3) 1,250 mcg (50,000 unit) capsule 1,250 mcg PO QMONTH RF: 0 furosemide 20 mg tablet 20 mg PO DAILY PRNRF: 0 Jardiance 10 mg tablet 10 mg PO DAILY RF: 0 lactulose 20 gram/30 mL Solution 20 g PO DIRECTED Qty: 0 RF: 0 rifaximin 550 mg Tablet 550 mg PO BID RF: 0 Cepacol Sore Throat (radha-men) 15-3.6 mg Lozenge 1 ea SUC Q6H PRN PRNQty: 20 RF: 0 Discontinued ibuprofen 200 mg tablet 600 mg PO Q6H PRNRF: 0 acetaminophen [Tylenol] 325 mg capsule 650 mg PO ONCE PRNRF: 0 lisinopril 20 mg Tablet 20 mg PO DAILY RF: 0 Discharge Instructions Instructions: Peptic Ulcer (GEN) Activity:: Activity as Tolerated Equipment/Supplies:: No Equipment Needed Diet:: Low Sodium DS: Summary Status at Discharge Functional status at discharge: independent ambulation Overall status at discharge: patient is progressing back to baseline Mental Status: mental status grossly normal Speech and Movement: speech and movement normal Mood: congruent mood Affect: normal affect Exam Const General: cooperative and no acute distress Nutritional Appearance: overweight Eyes Sclera: sclerae normal Pupils: PERRL Chest Chest: localized rib tenderness with anteroposterior compression (Mild; left chest wall) Resp Effort & Inspection: normal respiratory effort Auscultation: clear to auscultation bilaterally Cardio Rate: regular rate Rhythm: regular rhythm Heart Sounds: S1 normal and S2 normal GI Palpation: soft (Nontender) Extrem General: no clubbing, cyanosis or edema Psych Appearance: grossly normal Mental Status: mental status grossly normal Speech and Movement: speech and movement normal Mood: congruent mood Affect: normal affect Attitude: cooperative DS: Data Vitals/I&O Vitals and I&O: Vital Signs Temperature 36.9 C 11/28/19 07:33 Temperature Source Tympanic 11/28/19 07:33 Pulse 67 11/28/19 07:33 Pulse Rhythm Regular 11/28/19 07:50 Pulse 93 H 11/25/19 07:15 Respiratory Rate 18 11/28/19 07:33 Respiratory Effort Non-Labored 11/28/19 07:50 Respiratory Depth Normal 11/28/19 07:50 Respiratory Pattern Normal 11/28/19 07:50 Blood Pressure 120/58 L 11/28/19 07:33 Blood Pressure Mean 79 11/25/19 07:15 Blood Pressure Position Supine 11/25/19 04:40 Pulse Oximetry 99 11/28/19 07:33 Oxygen Delivery Method Room Air 11/28/19 07:33 Oxygen Flow Rate 0 11/28/19 07:33 Pain Level 0 11/28/19 07:33 Comment 11/26/19 23:23 Intake & Output 11/27/19 11/27/19 11/28/19 11:59 23:59 11:59 Intake Total 1393.75 / 1883.75 490 / 1883.75 1158.75 / 1158.75 Output Total 940 / 1465 525 / 1465 840 / 840 Balance 453.75 / 418.75 -35 / 418.75 318.75 / 318.75 Weight 87.3 kg 87.7 kg Intake: IV 1093.75 / 1103.75 10 / 1103.75 918.75 / 918.75 Oral 300 / 780 480 / 780 240 / 240 Output: Urine 940 / 1465 525 / 1465 840 / 840 Other: Urine Color Light Treva Pale Yellow Yellow Urine Appearance Clear Clear Clear Urine Odor Normal Normal Stool Occult Blood Positive Stool Characteristics Liquid Voiding Methods Urinal Toilet Urinal Data Completed and Pending Labs on day of discharge: Labs from last 24 hours 11/28/19 11/27/19 06:39 13:20 WBC 3.93 L RBC 3.60 L Hgb 10.7 L 11.2 L Hct 32.1 L 35.1 L MCV 89.2 MCH 29.7 MCHC 33.3 RDW 15.4 H Plt Count 165 MPV 8.9 Immature Gran % 0.3 Neutrophils % 57.2 Lymphocytes % 25.2 Monocytes % 10.9 Eosinophils % 5.6 Basophils % 0.8 Nucleated RBC % 0 Absolute Neutrophils 2.25 Absolute Lymphocytes 0.99 L Absolute Monocytes 0.43 Absolute Eosinophils 0.22 Absolute Basophils 0.03 PFSH Medical History Cirrhosis (Chronic) Esophageal varices (Chronic) Gallstones (Chronic) Hepatic encephalopathy (Resolved) Hepatitis C (Chronic) History of GI bleed (Inactive) variceal Hypertension (Resolved) Left inguinal hernia (Acute) Pancytopenia (Acute) Red blood cell antibody positive with compatible PRBC difficult to obtain (Inactive) Surgical History History of esophagogastroduodenoscopy (EGD) (Inactive) multiple Previous back surgery (Inactive) S/P hernia repair (Inactive) S/P shoulder surgery (Inactive) 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
[2019-11-28] MEDS: oxyCODONE 5 MG TAB PO (10:33)
[2019-11-28 11:20] VITALS: BP 100/50; PULSE 70; RESP 18; TEMP 36.8; O2SAT 96
--- NOTE | 2019-11-28 13:25 | PDOC.CMDIS ---
- If Service Date Differs Date of service: 11/28/19 Time of Service: 13:25 LACE Index Scoring Tool - Questions: Length of Stay (in days): 3 Acuity (Admit via E.D.?): Yes E.D. Visits: 4 - Answers: Total Score: 10 Risk of Readmission: High Risk Care Management Discharge Reason for Hospitalization: nausea, vomiting and melena Discharge Plan: Dong will be discharged home with no home services. A referral has been sent by to [place] [facility] for help with transportation. Dong will follow up wth his PCP and discharge plan of care and will transport with a friend. Patient/Family Education Needs: Discharge plan, limitations, follow up plan, Ask Me Three.
== END 2019-11-28 15:18 | disposition home or self-care (01) | DRG 379 ==
LOC: ER 07:42 → MS 07:56
PROVIDERS: Family Medicine; General Practice; Internal Medicine; Surgery; Admitting Provider Family Medicine; Emergency Provider Emergency Medicine; PCP Nurse Practitioner Family; Visit Provider Family Medicine
PROC: 0DJ68ZZ Inspection of Stomach, Via Natural or Artificial Opening Endoscopic (ICD-10-PCS; CPT 43235; principal; 2019-11-26 11:30)
DX: K92.1 Melena (principal); D64.9 Anemia, unspecified; K26.3 Acute duodenal ulcer without hemorrhage or perforation; K70.30 Alcoholic cirrhosis of liver without ascites; F10.21 Alcohol dependence, in remission; I85.10 Secondary esophageal varices without bleeding; B18.2 Chronic viral hepatitis C; I10 Essential (primary) hypertension; R11.2 Nausea with vomiting, unspecified
CPT/HCPCS: 43235; 36415; 43239; 80053; 85027; 86850; 86900; 86901; 86920; 93005; 96361; 96365; 96375; 99223; 99231; 99232; 99233; 99239; 99285; NC; U0003; 83036; 83735; 84484; 85014; 85018; 85025; 85610; 86870; 86902; 93010; J1756; J2405; P9016

== ENCOUNTER → 2019-12-04 09:44 | Outpatient (BNVA) | payer MEDICARE, SELFPAY | PROVIDERS: PCP Nurse Practitioner Family; Referring Provider Nurse Practitioner Family; Visit Provider Surgery | DX: K26.3 Acute duodenal ulcer without hemorrhage or perforation (principal); I10 Essential (primary) hypertension | CPT/HCPCS: 99213 ==

== ENCOUNTER 2019-12-11 15:08 | Outpatient (CLI) | payer MEDICARE, SELFPAY ==
--- NOTE | 2019-12-11 15:00 | DI.RAD_ITS ---
EXAM: XR CLAVICLE LT CLINICAL HISTORY: F/U FRACTURE TECHNIQUE: 2D digital imaging was performed. COMPARISON: CR XR CLAVICLE LT from 11/21/2019 FINDINGS: BONES: There has been no change in alignment of the overriding mid left clavicular fracture. No bony destructive lesion is seen. There are again seen multiple left rib fractures. JOINTS: Degenerative changes are seen at the AC joint. SOFT TISSUE: Normal. IMPRESSION: Stable left clavicular fracture. DATA REPOSITORY: RADIATION DOSE DELIVERED:
== END 2019-12-11 15:28 ==
PROVIDERS: PCP Nurse Practitioner Family; Referring Provider Nurse Practitioner Family; Visit Provider Student in an Organized Health Care Education/Training Program
DX: S42.002D Fracture of unspecified part of left clavicle, subsequent encounter for fracture with routine healing; X58.XXXD Exposure to other specified factors, subsequent encounter; I10 Essential (primary) hypertension
CPT/HCPCS: 99214; 73000

== ENCOUNTER 2020-01-11 02:17 | Outpatient (CLI) | payer MEDICARE, SELFPAY ==
[2020-01-12 21:14] LABS: COVID-19 RT-PCR Result NEGATIVE (Negative)
== END 2020-01-11 02:37 ==
PROVIDERS: PCP Nurse Practitioner Family; Visit Provider Surgery
DX: Z11.59 Encounter for screening for other viral diseases (principal); Z01.818 Encounter for other preprocedural examination
CPT/HCPCS: U0003

== ENCOUNTER 2020-01-16 08:10 | Day surgery (SDC) | payer MEDICARE, SELFPAY ==
[2020-01-16 08:28] VITALS: BP 117/61; PULSE 65; RESP 16; TEMP 36.5; O2SAT 98
--- NOTE | 2020-01-16 09:11 | HPE_ITS ---
Date of service: 01/16/20 Time of Service: 09:11 Assessment and Plan Assessment and plan (1) Red blood cell antibody positive with compatible PRBC difficult to obtain: Status: Acute (2) Duodenal ulcer disease: Status: Acute Assessment and plan: Risks: Informed consent is obtained for the procedural (explained in simple layman's terms that the pt and/or family could understand) explaining risks vs benefits and alternatives to the procedure and consequences if we do not do the procedure and need/rational for the procedure. Risks include but are not limited to: bleeding, infection, perforation of esophagus . This would necessitate emergency surgery to repair the damage w/ possible ostomy; and other associated complications w/ the required surgery. Also complications of anesthesia including aspiration, SC/CVA/. (3) S/P TIPS (transjugular intrahepatic portosystemic shunt): Status: Chronic History of Present Illness Consults Consult date: 01/16/20 Narrative: Patient is here today for follow-up from his ulcer back that was demonstrated on an EGD on November 25. He had had a blunt chest trauma and sustained multiple rib fractures and then been taking a large amount of NSAIDs and came in with acute abdominal pain and anemia. Today he is here today for follow-up EGD. He is having no abdominal pain. no H/I. no brbpr or black tarry stools. He has been eating a regular diet and having non GI issues. He f/u'ed w/ GI earlier this week and had US. Stent from TIPs procedure is patent. No jaundice. He has been feeling really good. no recent labs ribs hurt occ. He is having healing issues w/ clavicle and is off of PT currenlty. Being followed by ortho. [facility] Medical History Cirrhosis Esophageal varices Gallstones Hepatic encephalopathy Hepatitis C History of GI bleed variceal History of rib fracture Hx of fracture of clavicle Hx of non-insulin dependent diabetes mellitus Hx of pneumothorax Hypertension Left inguinal hernia Pancytopenia Red blood cell antibody positive with compatible PRBC difficult to obtain Scoliosis Surgical History History of esophagogastroduodenoscopy (EGD) multiple Hx of Achilles tendon repair Hx of basal cell carcinoma excision Previous back surgery S/P hernia repair S/P shoulder surgery S/P TIPS (transjugular intrahepatic portosystemic shunt) Has ultrasound done every 6 months last done 01/09/20 Family History Mother Breast cancer Sister Breast cancer Heart disease Diabetes Sister Breast cancer Hypertension Brother Cancer leukemia Brother Heart disease Diabetes Hypertension Maternal Grandmother Heart disease Father Diabetes Hypertension Social History Smoking/Tobacco Use Status: Never Alcohol Intake: former Year quit: 2018 Drug use: Current Sobriety Substance use type: does not use and former substance user Details: 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 Current gender identity: male Do you feel safe at home: Yes Do you feel safe in your relationship?: Yes Meds Home Medications and Allergies Home Medications Medication Instructions Recorded Confirmed Type lactulose 20 g PO DIRECTED #0 ml 02/02/19 01/16/20 Rx rifaximin 550 mg PO BID 11/02/19 01/16/20 History cholecalciferol (vitamin D3) 1,250 1,250 mcg PO QMONTH 11/16/19 01/16/20 History mcg (50,000 unit) capsule arojjzrx-mnk-eqtlw acid 0.4 1 tab PO DAILY 11/16/19 01/16/20 History mg-lycopene 300 mcg-lutein 250 mcg tablet empagliflozin 10 mg tablet 10 mg PO DAILY 11/21/19 01/16/20 History furosemide 20 mg tablet 20 mg PO DAILY PRN 11/21/19 01/16/20 History alum-mag hydroxide-simeth [Mag-Al 30 ml PO Q2H PRN PRN #0 ml 11/28/19 01/16/20 Rx Plus] gabapentin 300 mg PO HS #14 cap 11/28/19 01/16/20 Rx pantoprazole [Protonix] 40 mg PO BID #60 tab 11/28/19 01/16/20 Rx Allergies Allergy/AdvReac Type Severity Reaction Status Date / Time zolpidem [From Ambien] AdvReac Verified 01/16/20 08:33 Exam Const General: cooperative, healthy appearing, comfortable, no acute distress, well developed and well groomed Nutritional Appearance: average body habitus and well nourished Orientation: alert, awake and oriented x3 HENMT Head: normal to inspection, normocephalic and atraumatic Ears: hearing grossly normal bilaterally and external ears normal General nose exam: external nose normal Face and sinus: normal facial exam and sinuses nontender Mouth: oral mucosae normal, lip normal, tongue normal and moist mucous membranes Teeth and gingiva: dentition normal Eyes General: appearance normal, both eyes and all related structures Conjunctivae: conjunctivae normal Sclera: sclerae normal Pupils: PERRL Neck Neck: normal visual inspection and full ROM Chest Chest: normal inspection of the chest Resp Effort & Inspection: normal respiratory effort, able to speak in complete sentences, no cough, no nasal flaring, not tachypneic and no use of accessory muscles Auscultation: clear to auscultation bilaterally, no rales, no rhonchi and no wheezes Cardio Jugular venous pressure: no JVD Rate: regular rate Rhythm: regular rhythm GI Inspection: normal to inspection, no edema and non-distended Palpation: soft, no masses, nontender and No ascites Auscultation: normal bowel sounds Skin General skin exam: no rashes or lesions noted Trauma: no lacerations or abrasions Neuro General: patient alert, patient oriented x3, oriented, gait normal, moves all extremities, no focal motor deficits and CN's II-XI intact bilaterally Cognition: normal cognition Speech: speech normal Gait: normal gait Motor: muscle tone normal throughout Extrem General: normal to inspection, full ROM and no clubbing, cyanosis or edema Psych Appearance: grossly normal and well kempt Mental Status: mental status grossly normal Speech and Movement: speech and movement normal Affect: normal affect Results Labs Result diagrams: 01/16/20 09:15 Last Vital Signs Temp 36.5 C 01/16/20 08:28 Pulse 65 01/16/20 08:28 Resp 16 01/16/20 08:28 BP 117/61 01/16/20 08:28 Pulse Ox 98 01/16/20 08:28 COVID-19 Screening Have you,or household,traveled outside [place] in last 14 days?: No Had IN PERSON contact w/suspected or confirmed C-19 person: No
[2020-01-16] MEDS: Lactated Ringers 1,000 ML 80 ML IV (09:16)
--- NOTE | 2020-01-16 09:35 | W.PM.ENDDOP ---
Date of service: 01/16/20 Time of Service: 09:52 Endoscopy Report DATE OF PROCEDURE: 01/16/20 PRE-OP DIAGNOSIS: duoden ulcer POST-OP DIAGNOSIS: other (duodenitis) PROCEDURE: egd w/ bx SURGEON: Sari Yusuf ANESTHESIA: GETA ESTIMATED BLOOD LOSS: 1 PATHOLOGY: other COMPLICATIONS: None DISPOSITION: same day PROCEDURE DESCRIPTION: After informed consent was obtained the patient was take to the procedure room and placed in a supine position. Monitors were applied and a time out was done. The patients name, date of , procedure type, allergies to medications and metal in their body was reviewed. A bite block was placed and the patient was sedated. Once sedated and comfortable the gastroscope was advanced through the oropharynx which was grossly normal into the esophagus. The proximal and mid-esophagus were nl esophagus shows no varices diverticula or strictures apparent. There is minimal esophagitis at the EG junction. There could be some Bernal's. Biopsies taken of this. There is no hiatal hernia. Mild erythema of the duodenal bulb/first portion of the duodenum. Second portions of the duodenum the scope was advanced into the stomach and through the pylorus into the 3rd portion of the duodenum. The duodenum was noted to be second third and fourth portions of the duodenum.. Biopsies were done, all specimens are retrieved and no bleeding is noted. The scope was retracted back into the stomach and biopsies were done to rule out H. pylori. There were no ulcers. The scope was retroflexed. There is some mild erythema radiating out from the antrum in a striped fashion. Biopsies are taken of the antrum and the greater curvature. The cardia and fundus were noted to be normal. There lianet hiatal hernia noted. The scope was retracted back into the esophagus and biopsies were done of the GE junction to rule out Bernal's. The Z line was irregular. The GE junction was at 38 cm. The scope was removed and the patient was woken up and taken back to [facility] in stable condition. Follow up:
--- NOTE | 2020-01-16 09:45 | STOM_PTH ---
PATIENT: Alonzo Urbina LOC: TY U#:[id number] AGE/SX: 64/M ROOM: RE01/16/[address]: Sari Yusuf : 1955 BED: DIS: 01/16/2020 SPEC #: [id number] RECD: 01/16/20 12:42 STATUS: KALIN REQ #: [id number] RENEE: 01/16/20 09:[address]: Sari Yusuf DEPT: Surgical Specimen RECD BY: Eden Maurer ENTERED: 01/16/20 12:42 SP TYPE: STOMACH OTHR DR: Katia Blanco Tissues: 1 - BIOPSY BOWEL 2 - STOMACH BIOPSY 3 - STOMACH BIOPSY 4 - ESOPHAGUS BIOPSY 5 - ESOPHAGUS BIOPSY Procedures: GROSS AND MICRO LEVEL 4 Comments: [id number]
--- NOTE | 2020-01-16 09:55 | W.PM.DS.N ---
Date of service: 01/16/20 Time of Service: 09:56 DS: Diagnosis Discharge Diagnosis (1) Red blood cell antibody positive with compatible PRBC difficult to obtain: Status: Acute (2) Duodenal ulcer disease: Status: Acute (3) S/P TIPS (transjugular intrahepatic portosystemic shunt): Status: Chronic (4) Esophageal varices: Status: Chronic (5) Hepatitis C: Status: Chronic (6) Cirrhosis: Status: Chronic Discharge Plan Discharge Details Attending Provider: Sari Yusuf Primary Care Provider: Katia Blanco Home Meds and New Rx's Prescriptions: No Action Centrum Silver 0.4-300-250 mg-mcg-mcg tablet 1 tab PO DAILY RF: 0 cholecalciferol (vitamin D3) 1,250 mcg (50,000 unit) capsule 1,250 mcg PO QMONTH RF: 0 furosemide 20 mg tablet 20 mg PO DAILY PRNRF: 0 Jardiance 10 mg tablet 10 mg PO DAILY RF: 0 gabapentin 300 mg Capsule 300 mg PO HS Qty: 14 RF: 0 alum-mag hydroxide-simeth [Mag-Al Plus] 200-200-20 mg/5 mL Suspension 30 ml PO Q2H PRN PRNQty: 0 RF: 0 pantoprazole [Protonix] 40 mg tablet,delayed release (DR/EC) 40 mg PO BID Qty: 60 RF: 0 lactulose 20 gram/30 mL Solution 20 g PO DIRECTED Qty: 0 RF: 0 rifaximin 550 mg Tablet 550 mg PO BID RF: 0 DS: Data Vitals/I&O Vitals and I&O: Vital Signs Temperature 36.5 C 01/16/20 08:28 Pulse 65 01/16/20 08:28 Pulse Rhythm Regular 01/16/20 08:28 Respiratory Rate 16 01/16/20 08:28 Respiratory Depth Normal 01/16/20 08:28 Blood Pressure 117/61 01/16/20 08:28 Pulse Oximetry 98 01/16/20 08:28 Oxygen Delivery Method Room Air 01/16/20 08:28 Oxygen Flow Rate 0 01/16/20 08:28 Pain Level 0 01/16/20 08:28 Intake & Output 01/15/20 01/15/20 01/16/20 11:59 23:59 11:59 Intake Total 150 / 150 Balance 150 / 150 Weight 87.99 kg Intake: IV 150 / 150 Data Completed and Pending Labs on day of discharge: Labs from last 24 hours 01/16/20 01/16/20 01/16/20 09:51 09:34 09:15 WBC Pending RBC Pending Hgb Pending Hct Pending MCV Pending MCH Pending MCHC Pending RDW Pending Plt Count Pending MPV Pending Sodium Pending Potassium Pending Chloride Pending Carbon Dioxide Pending Anion Gap Pending BUN Pending Creatinine Pending Estimated GFR/1.73 m2 Pending Glucose Pending Calcium Pending Iron TIBC Transferrin % Sat Ferritin Total Bilirubin Pending AST Pending ALT Pending Alkaline Phosphatase Pending Ammonia Pending Total Protein Pending Albumin Pending 01/16/20 01/16/20 09:15 09:15 WBC RBC Hgb Hct MCV MCH MCHC RDW Plt Count MPV Sodium Potassium Chloride Carbon Dioxide Anion Gap BUN Creatinine Estimated GFR/1.73 m2 Glucose Calcium Iron Pending TIBC Pending Transferrin % Sat Pending Ferritin Pending Total Bilirubin AST ALT Alkaline Phosphatase Ammonia Total Protein Albumin FORMERLY [facility], 1928–1983 Medical History Cirrhosis Esophageal varices Gallstones Hepatic encephalopathy Hepatitis C History of GI bleed variceal History of rib fracture Hx of fracture of clavicle Hx of non-insulin dependent diabetes mellitus Hx of pneumothorax Hypertension Left inguinal hernia Pancytopenia Red blood cell antibody positive with compatible PRBC difficult to obtain Scoliosis Surgical History History of esophagogastroduodenoscopy (EGD) multiple Hx of Achilles tendon repair Hx of basal cell carcinoma excision Previous back surgery S/P hernia repair S/P shoulder surgery S/P TIPS (transjugular intrahepatic portosystemic shunt) Has ultrasound done every 6 months last done 01/09/20 Family History Mother Breast cancer Sister Breast cancer Heart disease Diabetes Sister Breast cancer Hypertension Brother Cancer leukemia Brother Heart disease Diabetes Hypertension Maternal Grandmother Heart disease Father Diabetes Hypertension Social History Smoking/Tobacco Use Status: Never Alcohol Intake: former Year quit: 2019 Drug use: Current Sobriety Substance use type: does not use and former substance user Details: 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 Current gender identity: male Do you feel safe at home: Yes Do you feel safe in your relationship?: Yes
--- NOTE | 2020-01-16 09:59 | W.PM.DSUDISC ---
Discharge Plan Disposition Patient Disposition: HOME Condition: Good Discharge Details Reason For Visit: EGD follow up for duodenal ulcer Attending Provider: Sari Yusuf Primary Care Provider: Katia Blanco Home Meds and New Rx's Prescriptions: No Action Centrum Silver 0.4-300-250 mg-mcg-mcg tablet 1 tab PO DAILY RF: 0 cholecalciferol (vitamin D3) 1,250 mcg (50,000 unit) capsule 1,250 mcg PO QMONTH RF: 0 furosemide 20 mg tablet 20 mg PO DAILY PRNRF: 0 Jardiance 10 mg tablet 10 mg PO DAILY RF: 0 gabapentin 300 mg Capsule 300 mg PO HS Qty: 14 RF: 0 alum-mag hydroxide-simeth [Mag-Al Plus] 200-200-20 mg/5 mL Suspension 30 ml PO Q2H PRN PRNQty: 0 RF: 0 pantoprazole [Protonix] 40 mg tablet,delayed release (DR/EC) 40 mg PO BID Qty: 60 RF: 0 lactulose 20 gram/30 mL Solution 20 g PO DIRECTED Qty: 0 RF: 0 rifaximin 550 mg Tablet 550 mg PO BID RF: 0 Discharge Instructions Additional Instructions: Findings:mild gastritis cont on protonix Continue with lifestyle modifications: no alcohol, tobacco products, Aspirin or NSAID's (ibuprofen, Motrin, Naprosyn, aleve, etc), soda pop/any carbonated beverages, caffeine (including tea & chocolate), and acidic foods, (tomatoes, citrus, onions, peppermints) spicy foods. Do not lie down for 30 minutes after eating, and do not eat 2 hours prior to bedtime. Avoid wearing tight fitting clothing/ belts Follow up: 2-3 wks Please call if you develop: fevers >101.5 Nausea or Vomiting Abdominal pain that is not transient DAY SURGERY UNIT POST COLONOSCOPY INSTRUCTIONS 1. Because there will be medication in your system for the next 24 hours, you may feel a little sleepy. Your coordination will be affected. Therefore: a. Do not drive or operate dangerous equipment for 24 hours. b. Do not drink alcohol beverages for 24 hours (not even beer). c. Plan to go home and rest for the day. 2. Generally there are no restrictions on your activity after a day or so has gone by, but you may feel a bit fatigued for a few days. 3 After you arrive home you may have a light meal and return to a normal diet as you can tolerate it without feeling sick to your stomach. 4. After surgery, you may feel pain or discomfort. This should be only transient, but if it persists please contact your doctor. 5. If there are any questions regarding the findings of your procedure, please feel free to contact your doctor. 6. If you are unable to contact your doctor with a problem, contact the hospital at [phone]. 7. Continue all your regular medications unless directed otherwise. I understand the above instructions and have no questions. Signature of Patient or Responsible Adult Escort Date/Time Name of Responsible Adult Escort Signature of Nurse Date/Time Activity:: no lifting over 20#'s or strenuous acitivity x 24 hrs Diet:: Small light meals x24 hourssmall light meals x 24 hrs Discharge Orders Discharge Orders: Discharge Order (Routine); Ordered 01/16/20 Ordered By: Sari Yusuf DS: Diagnosis Discharge Diagnosis (1) Red blood cell antibody positive with compatible PRBC difficult to obtain: Status: Acute (2) Duodenal ulcer disease: Status: Acute (3) S/P TIPS (transjugular intrahepatic portosystemic shunt): Status: Chronic (4) Esophageal varices: Status: Chronic (5) Hepatitis C: Status: Chronic (6) Cirrhosis: Status: Chronic
[2020-01-16 10:28] VITALS: BP 121/67; PULSE 66; RESP 18; TEMP 36.6; O2SAT 98
[2020-01-16 10:34] LABS: HCT 34.8 % (40.0-50.0); HGB 10.8 g/dL (13.5-17.5); MCH 27.1 pg (27.0-33.0); MCV 87.4 fL (80-95); MPV 8.5 fL (8.0-11.0); Platelet Count 143 10^3/uL (130-400); RBC 3.98 10^6/uL (4.36-5.78); RDW 13.4 % (11.8-14.1); RDW-SD 42.9 fL; WBC 3.34 10^3/uL (4.4-10.8)
[2020-01-16 10:42] LABS: Ammonia 13 umol/L (11-32)
[2020-01-16 10:44] LABS: ALT 24 U/L (16-63); AST 23 U/L (15-37); Albumin 3.3 g/dL (3.4-5.0); Alkaline Phosphatase 149 U/L (46-116); Anion Gap 6.9 mmol/L (3-11); BUN 15 mg/dL (7-18); Bilirubin, Total 0.9 mg/dL (0.2-1.0); CO2 26.1 mmol/L (21.0-32.0); CREATININE 0.83 mg/dL (0.70-1.30); Calcium 8.9 mg/dL (8.5-10.1); Chloride 106 mmol/L (98-107); Glucose 110 mg/dL (74-106); Sodium 139 mmol/L (136-145); Total Protein 6.8 g/dL (6.4-8.2)
[2020-01-16 10:51] LABS: INR 1.1 (0.9-1.1); Prothrombin Time 11.2 sec (9.3-11.0)
[2020-01-16 11:07] LABS: Iron 37 ug/dL (65-175); Total Iron Binding Capacity 320 ug/dL (250-450); Transferrin Sat 12 % (20-55)
[2020-01-16 11:20] LABS: Ferritin 17 ng/mL (26-388)
== END 2020-01-16 11:03 | disposition home or self-care (01) ==
PROVIDERS: PCP Nurse Practitioner Family; Visit Provider Surgery
PROC: 0DJ68ZZ Inspection of Stomach, Via Natural or Artificial Opening Endoscopic (ICD-10-PCS; CPT 43235; principal; 2020-01-16 09:30)
DX: Z09 Encounter for follow-up examination after completed treatment for conditions other than malignant neoplasm (principal); K29.80 Duodenitis without bleeding; Z87.11 Personal history of peptic ulcer disease
CPT/HCPCS: 43239; 36415; 80053; 85027; 88305; NC; 82140; 82728; 83540; 83550; 85610; J2001; J2704

== ENCOUNTER 2020-01-22 14:01 | Outpatient (CLI) | payer MEDICARE, SELFPAY ==
--- NOTE | 2020-01-22 09:15 | DI.RAD_ITS ---
EXAM: XR CLAVICLE LT CLINICAL HISTORY: F/U FRACTURE TECHNIQUE: 2D digital imaging was performed. COMPARISON: CR XR CLAVICLE LT from 12/11/2019 FINDINGS: BONES: There is has been no change in the alignment of the mid clavicle fracture. There is some incr eased callus formation and mild bony bridging across the fracture. Degenerative changes also seen. No bony destructive lesion is seen. JOINTS: No dislocation present. SOFT TISSUE: Normal. IMPRESSION: Continued healing of clavicle fracture. DATA REPOSITORY: RADIATION DOSE DELIVERED:
== END 2020-01-22 14:21 ==
PROVIDERS: PCP Nurse Practitioner Family; Visit Provider Student in an Organized Health Care Education/Training Program
DX: S42.002D Fracture of unspecified part of left clavicle, subsequent encounter for fracture with routine healing; X58.XXXD Exposure to other specified factors, subsequent encounter; M75.102 Unspecified rotator cuff tear or rupture of left shoulder, not specified as traumatic
CPT/HCPCS: 99213; 73000

== ENCOUNTER 2020-10-24 17:34 | Outpatient (REF) | payer MEDICARE, SELFPAY ==
[2020-10-24 13:46] LABS: HCT 38.2 % (40.0-50.0); HGB 13.6 g/dL (13.5-17.5); MCH 32.5 pg (27.0-33.0); MCHC 35.6 % (32.0-36.0); MCV 91.4 fL (80-95); Platelet Count 120 10^3/uL (130-400); RBC 4.18 10^6/uL (4.36-5.78); RDW 13.2 % (11.8-14.1); RDW-SD 43.8 fL; WBC 3.39 10^3/uL (4.4-10.8)
[2020-10-24 14:24] LABS: ALT 30 U/L (16-63); AST 26 U/L (15-37); Albumin 3.3 g/dL (3.4-5.0); Alkaline Phosphatase 79 U/L (46-116); Anion Gap 9.1 mmol/L (3-11); BUN 16 mg/dL (7-18); Bilirubin, Total 1.3 mg/dL (0.2-1.0); CO2 22.9 mmol/L (21.0-32.0); CREATININE 0.8 mg/dL (0.70-1.30); Calcium 8.9 mg/dL (8.5-10.1); Chloride 109 mmol/L (98-107); Glucose 178 mg/dL (74-106); Sodium 141 mmol/L (136-145); Total Protein 6.3 g/dL (6.4-8.2)
[2020-10-24 22:32] LABS: Calculated LDL 77 mg/dL (<100); Cholesterol 153 mg/dL (<200); HDL Cholesterol 65 mg/dL (40-60); Triglyceride 59 mg/dL (<150)
== END 2020-10-24 17:35 | disposition home or self-care (01) ==
LOC: NCHCN 17:34
PROVIDERS: PCP Nurse Practitioner Family; Visit Provider Nurse Practitioner Family
DX: I10 Essential (primary) hypertension (principal); K74.60 Unspecified cirrhosis of liver
CPT/HCPCS: 80053; 80061; 85027

== ENCOUNTER 2021-09-25 14:40 | Outpatient (REF) | payer OTHER, SELFPAY ==
[2021-09-25 19:41] LABS: HCT 41.1 % (40.0-50.0); HGB 14.7 g/dL (13.5-17.5); MCH 34.2 pg (27.0-33.0); MCHC 35.8 % (32.0-36.0); MCV 96 fL (80-95); MPV 9.1 fL (8.0-11.0); Platelet Count 113 10^3/uL (130-400); RDW-SD 45.6 fL; WBC 4.46 10^3/uL (4.4-10.8)
[2021-09-25 19:54] LABS: ALT 26 U/L (16-63); AST 50 U/L (15-37); Albumin 3.7 g/dL (3.4-5.0); Alkaline Phosphatase 79 U/L (46-116); Anion Gap 4.5 mmol/L (3-11); BUN 22 mg/dL (7-18); CO2 28.5 mmol/L (21.0-32.0); Calcium 9.2 mg/dL (8.5-10.1); Chloride 109 mmol/L (98-107); Glucose 200 mg/dL (74-106); Potassium 4.7 mmol/L (3.5-5.1); Sodium 142 mmol/L (136-145); Total Protein 6.6 g/dL (6.4-8.2)
== END 2021-09-25 14:41 | disposition home or self-care (01) ==
LOC: NCHCN 14:40
PROVIDERS: PCP Nurse Practitioner Family; Visit Provider Nurse Practitioner Family
DX: E11.9 Type 2 diabetes mellitus without complications (principal); I10 Essential (primary) hypertension; K74.60 Unspecified cirrhosis of liver
CPT/HCPCS: 80053; 85027

== ENCOUNTER 2023-03-22 09:17 | Outpatient (REF) | payer OTHER, SELFPAY ==
[2023-03-22 16:38] LABS: ALT 44 U/L (16-63); AST 33 U/L (15-37); Albumin 3.7 g/dL (3.4-5.0); Alkaline Phosphatase 77 U/L (46-116); Anion Gap 8.3 mmol/L (3-11); BUN 11 mg/dL (7-18); Bilirubin, Total 2.1 mg/dL (0.2-1.0); CO2 26.7 mmol/L (21.0-32.0); CREATININE 0.9 mg/dL (0.70-1.30); Calcium 9.7 mg/dL (8.5-10.1); Calculated LDL 62 mg/dL (<100); Chloride 105 mmol/L (98-107); Cholesterol 165 mg/dL (<200); Estimated GFR 92.45 (mL/min/1.73m2); Glucose 149 mg/dL (74-106); HDL Cholesterol 95 mg/dL (40-60); Potassium 4.1 mmol/L (3.5-5.1); Sodium 140 mmol/L (136-145); Total Protein 7.1 g/dL (6.4-8.2); Triglyceride 41 mg/dL (<150)
== END 2023-03-22 09:18 | disposition home or self-care (01) ==
LOC: NCHCN 09:17
PROVIDERS: PCP Nurse Practitioner Family; Visit Provider Physician Assistant
DX: E11.9 Type 2 diabetes mellitus without complications (principal)
CPT/HCPCS: 80053; 80061

== ENCOUNTER 2023-08-17 21:20 | Outpatient (REF) | payer OTHER, SELFPAY ==
[2023-08-17 21:13] LABS: Abs Immature Grans 0.01 10^3/uL (0.0-0.06); Absolute Basophil Count 0.05 10^3/uL (0.0-0.2); Absolute Eosinophil Count 0.14 10^3/uL (0.0-0.7); Absolute Monocyte Count 0.45 10^3/uL (0.1-0.8); Basophils % 0.9 %; Eosinophils % 2.5 %; HCT 41.8 % (40.0-50.0); HGB 14.8 g/dL (13.5-17.5); Immature Grans % 0.2 %; MCH 33.8 pg (27.0-33.0); MCHC 35.4 % (32.0-36.0); MCV 95 fL (80-95); MPV 9.4 fL (8.0-11.0); Monocytes % 8.1 %; Neutrophils % 70.3 %; Platelet Count 129 10^3/uL (130-400); RBC 4.38 10^6/uL (4.36-5.78); RDW 12.6 % (11.8-14.1); RDW-SD 43.8 fL; WBC 5.55 10^3/uL (4.4-10.8)
[2023-08-17 21:47] LABS: ALT 36 U/L (16-63); AST 25 U/L (15-37); Alkaline Phosphatase 90 U/L (46-116); Anion Gap 12.5 mmol/L (3-11); BUN 14 mg/dL (7-18); Bilirubin, Total 1.8 mg/dL (0.2-1.0); CO2 24.5 mmol/L (21.0-32.0); CREATININE 0.8 mg/dL (0.70-1.30); Calcium 9.8 mg/dL (8.5-10.1); Chloride 109 mmol/L (98-107); Estimated GFR 95.21 (mL/min/1.73m2); Glucose 116 mg/dL (74-106); Lipase 40 U/L (16-77); Potassium 4.2 mmol/L (3.5-5.1); Sodium 146 mmol/L (136-145); Total Protein 6.9 g/dL (6.4-8.2)
== END 2023-08-17 21:21 | disposition home or self-care (01) ==
LOC: LBN 21:20
PROVIDERS: Visit Provider Physician Assistant Medical
DX: R10.11 Right upper quadrant pain (principal)
CPT/HCPCS: 80053; 83690; 85025

== ENCOUNTER 2023-08-19 13:06 | Emergency (ER) | payer OTHER, SELFPAY ==
[2023-08-19] VITALS (31 sets, daily range): BP systolic 121–179; BP diastolic 58–95; PULSE 61–87; RESP 10–24; O2SAT 91–100
--- NOTE | 2023-08-19 13:00 | RT.EKG_ITS ---
APPROVED REPORT Exam: Resting ECG Reason for Exam: Chest pain Patient Location: E HR:69 bpm ECG Measurements Heart Rate 69 AXIS VA 183 P 35 QRSd 87 QRS -13 QT 434 T 18 QTc 467 Conclusion Sinus rhythm...normal P axis, V-rate 60- 99
--- NOTE | 2023-08-19 13:27 | ED.GENADUL_ITS ---
Discharge Plan Disposition Patient Disposition: Home Condition: Stable Discharge Details Clinical Impression: Epigastric abdominal pain Primary Care Provider: Unknown,Unknown ED Provider: Abdiaziz Madrid Home Meds and New Rx's Prescriptions: Continued Centrum Silver 0.4-300-250 mg-mcg-mcg tablet 1 tab PO DAILY cholecalciferol (vitamin D3) 1,250 mcg (50,000 unit) capsule 1,250 mcg PO QMONTH atorvastatin 20 mg tablet 20 mg PO DAILY Invokana 100 mg tablet 100 mg PO DAILY lisinopril 10 mg tablet 10 mg PO DAILY Lumigan 0.01 % drops 1 drp ophthalmic (eye) DAILY Discharge Instructions Instructions: Epigastric Pain (ED) Additional Instructions: You were seen in the emergency department for your right-sided and epigastric abdominal pain, we performed a CTA of your chest abdomen and pelvis which showed no vascular abnormality of the aorta, no pulmonary embolism, no dilation of the biliary tree of the liver, gallbladder, pancreas, no occlusion to any of your bowel. You may have a mild abdominal wall hernia in the epigastric region containing some fat but no incarceration of any bowel. Her laboratory workup is reassuring for any signs of cardiac emergency or infectious etiology. I am having surgery consult on your case for likely follow-up in office for possible hernia surgical consult. Please return to the emergency department for any severe increase in abdominal pain especially chest pain, palpitations, loss of consciousness or fainting, visual changes, intractable nausea or vomiting, fever, black tarry stools, complete constipation without passing of any gas. Referrals: [facility] [Provider Group] HPI General Date/Time Provider Initiated Documentation: 08/19/23 13:16 . HPI Narrative: 68 year-old male presents to ED today by POV/ambulating with a chief complaint of epigastric abdominal pain, appearance of a tender painful swollen pulsatile mass in epigastric region with onset the past 24 hours- has been having a more mild degree of pain for 2 weeks. Patient has known cirrhosis but has been ETOH free for a long time and takes good care of himself, recently seen with good prognosis for his liver. Quality described as dizziness, shortness of breath, pulsatile mass in the epigastric region, poor p.o. intake but endorses positive bowel movements and no dysuria or urinary problems, denies syncope, no radiation to black tarry stools recently, cough, hemoptysis, patient is questioning jazmine odonnell his pain spreads from the epigastric region through the chest. Severity is described as 8-9/10. Palliating factors include nothing specific attempted. Provoking factors include nothing specific. Patient not anticoagulated. Related Data Home Medications Medication Instructions Recorded Confirmed cholecalciferol (vitamin D3) 1,250 1,250 mcg PO QMONTH 11/16/19 08/19/23 mcg (50,000 unit) capsule hyrxnugs-lkr-ptmve acid 0.4 1 tab PO DAILY 11/16/19 08/19/23 mg-lycopene 300 mcg-lutein 250 mcg tablet (Centrum Silver) atorvastatin 20 mg tablet 20 mg PO DAILY 08/19/23 08/19/23 bimatoprost 0.01 % eye drops 1 drp ophthalmic (eye) DAILY 08/19/23 08/19/23 (Lumigan) canagliflozin 100 mg tablet 100 mg PO DAILY 08/19/23 08/19/23 (Invokana) lisinopril 10 mg tablet 10 mg PO DAILY 08/19/23 08/19/23 Allergies Allergy/AdvReac Type Severity Reaction Status Date / Time zolpidem [From Ambien] AdvReac Other (See Verified 08/19/23 13:54 Comment) General Stated Complaint: Chest Pain BAKARI: 3 Review of Systems All systems reviewed & are unremarkable except as noted in HPI and below Exam Narrative Exam Narrative: GENERAL APPEARANCE: Well-nourished, non-toxic, awake and alert, atraumatic, no acute distress. SKIN: Warm, pink, dry, intact, without rashes/lesions/ulcerations. HEAD: Normocephalic, atraumatic, normal hair distribution for gender/age. EYES: Pupils PERRLA, EOMs intact without nystagmus, normal conjunctiva, no exudates on lids/lashes. ENT: Nares patent, no circumoral cyanosis, no facial swelling NECK: Supple, trachea midline, painless cervical ROM. LUNGS/CHEST: Lungs CTA bilaterally- no rhonchi/rales/wheezes diffusely, non- labored respirations, normal A/P diameter, symmetrical expansion, no chest wall deformity HEART (CV/PV): Regular rate and rhythm without murmur, no peripheral edema, no JVD, no carotid bruits. ABDOMEN: Soft, non-distended, no guarding, 3 x 3 cm epigastric pulsatile mass that you can auscultate a pulsating, does not contain bowel sounds, right upper quadrant tenderness, no Rovsing's, no Otero/Jackson's sign. MSK: Normal ROM, no swelling/deformity to bilateral UEs or LEs, moving all extremities without weakness, no cyanosis, spine midline without tenderness, normal curvature. NEURO: Mental Status AAOx4 - alert to person, place, time, events No facial droop, no forehead involvement. Motor: No focal weakness - strength 5/5 in bilateral UEs and LEs, proximal and distal, symmetric. Sensory: sensation intact to light touch globally. Gait normal: patient ambulated without ataxia into ED room. PSYCH: euthymic, cooperative, pleasant, appropriate speech Course Vital Signs Vital signs: Vital Signs Pulse 70 08/19/23 13:11 Respiratory Rate 18 08/19/23 13:11 Blood Pressure 179/81 H 08/19/23 13:11 Pulse Oximetry 99 08/19/23 13:11 Temperature Source Temporal Artery Scan 08/19/23 13:11 Pulse 70 08/19/23 13:11 Respiratory Rate 18 08/19/23 13:11 Blood Pressure 179/81 H 08/19/23 13:11 Blood Pressure Position Sitting 08/19/23 13:11 Pulse Oximetry 99 08/19/23 13:11 Oxygen Delivery Method Room Air 08/19/23 13:11 Oxygen Flow Rate 0 08/19/23 13:11 Medical Decision Making This dictation utilizes [id number] dictation software and may contain unedited grammatical errors. 68 y/o M presents to ED today with a chief complaint of right upper quadrant pain for the past 2 weeks now having a pulsatile mass appear in the epigastric region, history of hernia, has known cirrhosis of the liver, endorses normal BMs, poor p.o. intake lately, denies fever, denies severe shortness of breath. Questions whether he has been dizzy feeling palpitations or near syncope. Patient questions whether his pain has been worse with eating that is why he has been having poor p.o. intake lately. Patients' medical history: Cirrhosis, hepatitis C, esophageal varices, status post TIPS procedure, history of gallstones, duodenal ulcer, anemia, history of RBCs with antibody positive, history of drug abuse. Family and social history: States he takes vitamins, exercises tries to take good care of himself. Pertinent exam findings / vital signs include 3 x 3 cm epigastric pulsatile mass that has audible pulse with auscultation- but this area is also close to the heart, lungs CTA, no diminished lung sounds at bases, positive Gonsalez's, no Rovsing's, neuro intact, nontoxic vitals. Differential / pathologies of concern include AAA, Abdominal Wall Hernia, ACS, Biliary Colic. Diagnostic studies of: -CBC, BMP, liver panel, lactate, lipase, procalcitonin, BNP, troponin, PT/PTT, type and screen, urinalysis, CRP/ESR, ammonia, magnesium, CTA thorax/abdomen/pelvis, EKG. -CBC shows no leukocytosis, no anemia -CMP shows baseline bilirubin 1.8, mildly elevated direct bilirubin, normal lip ase -Lactate negative, procalcitonin negative-do not suspect sepsis -Magnesium 1.7, will replete with normal p.o. intake -INR 1.2, PT 11.9, PTT 25.3 - nonspecific in chronic liver dz -UA shows ketones -CTA shows no aortic pathology, no evidence of PE, no large hernia, no biliary dilatation -EKG shows sinus rhythm with left axis deviation, P waves followed by narrow complex QRS, good R wave progression, no ST depressions or reciprocal elevations, normal QT QTc, consistent with prior Interventions of: -4mg IV Zofran, 1.5mg total Dilaudid. ED Course/Assessment/Plan: 68-year-old male presents with right-sided abdominal pain also presents with a abdominal protruding bulge or mass in the epigastric region that is new in the past 24 hours and is painful to the touch. His pain was controlled with 1.5 mg of Dilaudid, he is a cirrhosis patient who is 5 years sober and has had TIPS procedure, had a recent visit with his technology risk intern with good prognosis, he denies any fever, denies palpitations, endorses some dizziness. He is neurologically intact with nontoxic vitals, his abdomen is nonperitoneal I do not suspect SBP. There is no aortic pathology or incarcerated hernia seen on CT scan, no biliary dilatation. He does have an area of possible abdominal wall hernia with fat involvement anterior to the medial portion of the liver which is where his area of pain is, the radiologist did question this as an abnormality but I consulted with surgery for the patient's significant pain to this area- Dr. Yusuf is in OR, and Dr. Cabrales is coming on a 1700, patient could use surgical consult due to severity of tenderness and confounding bulge on exam, review of CT and perhaps close follow-up Findings not consistent with AAA, Biliary Cholangiitis, ACS, PE, Hydronephrosis, SBP. Disposition of Epigastric Abdominal Pain. Patient verbalized understanding of the plan and return to ED criteria and engaged in shared decision making. Medical Records Medical records reviewed: Yes I reviewed the patient's medical records. Imaging Data Radiologic Study: Attestation: I personally reviewed and interpreted this imaging study as follows: Imaging: CT Scan Radiologist's impression: EXAM: CT THORAX ABD/PEL CTA CLINICAL HISTORY: severe upper abdominal pain. TECHNIQUE: Imaging Protocol: Axial CT angiography was performed with multi- slice acquisition and multi-planar and/or 3D reconstructions. CONTRAST MATERIAL: Intravenous: Omnipaque 350 Contrast volume:100 ml COMPARISON: CT CT CHEST/ABD/PEL W from 11/02/2019 CR XR ABDOMEN FLAT PLATE from 11/05/2019 FINDINGS: CHEST: Pulmonary Arteries: No evidence of filling defects to suggest pulmonary emboli. Tracheobronchial tree: No bronchiectasis or mucus plugging. Mediastinum and Joelle: No dominant adenopathy or fluid collection. Pulmonary parenchyma: No consolidation or dominant measurable mass. Pleura: No effusion. No pneumothorax. Heart: The heart is notdilated. No coronary artery calcifications are seen. Aorta: Thoracic aorta non-dilated. Bones: Old left rib fractures. Prior spinal surgery. Prominent osteophytes. Scoliosis. Tubes, Catheters, and Lines: None. Soft tissues: Unremarkable. ABDOMEN and PELVIS: Liver: Normal size. Normal density. No suspicious measurable mass. Tips. Portal, Superior Mesenteric, and Splenic Veins: Unremarkable. Gallbladder and Biliary Tract: Cholelithiasis. No biliary dilatation. Pancreas: Metallic coils create artifact in the upper abdomen. Normal density, no abnormal calcifications or inflammatory process. Spleen: Normal. Adrenals: No masses seen. Kidneys: Normal size, contour and axis. Nonobstructing bilateral renal calculi. No obstructive uropathy. No masses seen. Vasculature: Abdominal aorta non-dilated. Bowel: No obstruction or bowel wall thickening. Peritoneal Cavity: No ascites, collection or mesenteric inflammatory response. Lymph Nodes: Within normal limits. Soft Tissues: Unremarkable. Bladder: Symmetric distention, no gross wall thickening. Reproductive Organs: Unremarkable as visualized. Bones: Severe scoliosis. Spinal fusion. IMPRESSION: 1. No evidence of pulmonary embolism or aortic dissection.. 2. No acute abdominal or pelvic process. Bilateral nonobstructing renal calculi. TIPS in place. Lab Data Lab results reviewed: Yes I reviewed the patient's lab results. Labs: Laboratory Tests Range/Units 08/19/23 08/19/23 08/19/23 13:33 13:33 13:33 WBC (4.4-10.8) 10^3/uL 5.88 RBC (4.36-5.78) 10^6/uL 4.22 L Hgb (13.5-17.5) g/dL 14.4 Hct (40.0-50.0) % 40.4 MCV (80-95) fL 96 H MCH (27.0-33.0) pg 34.1 H MCHC (32.0-36.0) % 35.6 RDW (11.8-14.1) % 12.6 Plt Count (130-400) 10^3/uL 113 L MPV (8.0-11.0) fL 8.1 Immature Gran % % 0.3 Neutrophils % % 74.2 Lymphocytes % % 14.3 Monocytes % % 9.0 Eosinophils % % 1.7 Basophils % % 0.5 Nucleated RBC % (0.0-0.3) % 0.0 Absolute Neutrophils (1.2-6.7) 10^3/uL 4.36 Absolute Lymphocytes (1.2-3.4) 10^3/uL 0.84 L Absolute Monocytes (0.1-0.8) 10^3/uL 0.53 Absolute Eosinophils (0.0-0.7) 10^3/uL 0.10 Absolute Basophils (0.0-0.2) 10^3/uL 0.03 ESR (0-20) mm/hr 6 PT (9.1-11.1) sec 11.9 H INR (0.9-1.1) 1.2 H APTT (23.6-32.8) sec 25.3 VBG Lactate (0.6-1.4) mmol/L 1.7 H Sodium Cancelled 142 Potassium Cancelled 3.9 Chloride Cancelled Carbon Dioxide Anion Gap BUN Creatinine Est GFR (CKD-EPI 2020) Glucose Calcium Magnesium (1.8-2.4) mg/dL Total Bilirubin (0.2-1.0) mg/dL Conjugated Bilirubin (0.0-0.2) mg/dL AST (15-37) U/L ALT (16-63) U/L Alkaline Phosphatase (46-116) U/L Ammonia (11-32) umol/L Troponin I (< or =60) ng/L NT-Pro-B Natriuret Pep (<300) pg/mL Total Protein (6.4-8.2) g/dL Albumin (3.4-5.0) g/dL Lipase (16-77) U/L Procalcitonin ng/mL Urine Color (Yellow) Urine Clarity (Clear) Urine pH (5-8) Ur Specific [place] (1.005-1.025) Urine Protein (Neg-Trace) mg/dL Urine Ketones (Negative) mg/dL Urine Blood (Negative) Urine Nitrite (Negative) Urine Bilirubin (Negative) Urine Urobilinogen (Up to 0.2) mg/dL Ur Leukocyte Esterase (Negative) Urine RBC (0-2) HPF Urine WBC (0-5) HPF Ur Epithelial Cells (Negative) HPF Urine Crystals (Negative) HPF Urine Bacteria (Negative) HPF Urine Casts (Negative) LPF Urine Mucus (Negative) Ur Culture Indicated? Urine Glucose (Negative) mg/dL ABO/Rh Antibody Screen Range/Units 08/19/23 08/19/23 08/19/23 13:33 13:33 13:33 WBC (4.4-10.8) 10^3/uL RBC (4.36-5.78) 10^6/uL Hgb (13.5-17.5) g/dL Hct (40.0-50.0) % MCV (80-95) fL MCH (27.0-33.0) pg MCHC (32.0-36.0) % RDW (11.8-14.1) % Plt Count (130-400) 10^3/uL MPV (8.0-11.0) fL Immature Gran % % Neutrophils % % Lymphocytes % % Monocytes % % Eosinophils % % Basophils % % Nucleated RBC % (0.0-0.3) % Absolute Neutrophils (1.2-6.7) 10^3/uL Absolute Lymphocytes (1.2-3.4) 10^3/uL Absolute Monocytes (0.1-0.8) 10^3/uL Absolute Eosinophils (0.0-0.7) 10^3/uL Absolute Basophils (0.0-0.2) 10^3/uL ESR (0-20) mm/hr PT (9.1-11.1) sec INR (0.9-1.1) APTT (23.6-32.8) sec VBG Lactate (0.6-1.4) mmol/L Sodium Potassium Chloride 106 Carbon Dioxide Cancelled 26.1 Anion Gap Cancelled 9.9 BUN Cancelled Creatinine Est GFR (CKD-EPI 2020) Glucose Calcium Magnesium (1.8-2.4) mg/dL Total Bilirubin (0.2-1.0) mg/dL Conjugated Bilirubin (0.0-0.2) mg/dL AST (15-37) U/L ALT (16-63) U/L Alkaline Phosphatase (46-116) U/L Ammonia (11-32) umol/L Troponin I (< or =60) ng/L NT-Pro-B Natriuret Pep (<300) pg/mL Total Protein (6.4-8.2) g/dL Albumin (3.4-5.0) g/dL Lipase (16-77) U/L Procalcitonin ng/mL Urine Color (Yellow) Urine Clarity (Clear) Urine pH (5-8) Ur Specific [place] (1.005-1.025) Urine Protein (Neg-Trace) mg/dL Urine Ketones (Negative) mg/dL Urine Blood (Negative) Urine Nitrite (Negative) Urine Bilirubin (Negative) Urine Urobilinogen (Up to 0.2) mg/dL Ur Leukocyte Esterase (Negative) Urine RBC (0-2) HPF Urine WBC (0-5) HPF Ur Epithelial Cells (Negative) HPF Urine Crystals (Negative) HPF Urine Bacteria (Negative) HPF Urine Casts (Negative) LPF Urine Mucus (Negative) Ur Culture Indicated? Urine Glucose (Negative) mg/dL ABO/Rh Antibody Screen Range/Units 08/19/23 08/19/23 08/19/23 13:33 13:33 13:33 WBC (4.4-10.8) 10^3/uL RBC (4.36-5.78) 10^6/uL Hgb (13.5-17.5) g/dL Hct (40.0-50.0) % MCV (80-95) fL MCH (27.0-33.0) pg MCHC (32.0-36.0) % RDW (11.8-14.1) % Plt Count (130-400) 10^3/uL MPV (8.0-11.0) fL Immature Gran % % Neutrophils % % Lymphocytes % % Monocytes % % Eosinophils % % Basophils % % Nucleated RBC % (0.0-0.3) % Absolute Neutrophils (1.2-6.7) 10^3/uL Absolute Lymphocytes (1.2-3.4) 10^3/uL Absolute Monocytes (0.1-0.8) 10^3/uL Absolute Eosinophils (0.0-0.7) 10^3/uL Absolute Basophils (0.0-0.2) 10^3/uL ESR (0-20) mm/hr PT (9.1-11.1) sec INR (0.9-1.1) APTT (23.6-32.8) sec VBG Lactate (0.6-1.4) mmol/L Sodium Potassium Chloride Carbon Dioxide Anion Gap BUN 16 Creatinine Cancelled 0.9 Est GFR (CKD-EPI 2020) Cancelled 91.88 Glucose Cancelled Calcium Magnesium (1.8-2.4) mg/dL Total Bilirubin (0.2-1.0) mg/dL Conjugated Bilirubin (0.0-0.2) mg/dL AST (15-37) U/L ALT (16-63) U/L Alkaline Phosphatase (46-116) U/L Ammonia (11-32) umol/L Troponin I (< or =60) ng/L NT-Pro-B Natriuret Pep (<300) pg/mL Total Protein (6.4-8.2) g/dL Albumin (3.4-5.0) g/dL Lipase (16-77) U/L Procalcitonin ng/mL Urine Color (Yellow) Urine Clarity (Clear) Urine pH (5-8) Ur Specific [place] (1.005-1.025) Urine Protein (Neg-Trace) mg/dL Urine Ketones (Negative) mg/dL Urine Blood (Negative) Urine Nitrite (Negative) Urine Bilirubin (Negative) Urine Urobilinogen (Up to 0.2) mg/dL Ur Leukocyte Esterase (Negative) Urine RBC (0-2) HPF Urine WBC (0-5) HPF Ur Epithelial Cells (Negative) HPF Urine Crystals (Negative) HPF Urine Bacteria (Negative) HPF Urine Casts (Negative) LPF Urine Mucus (Negative) Ur Culture Indicated? Urine Glucose (Negative) mg/dL ABO/Rh Antibody Screen Range/Units 08/19/23 08/19/23 08/19/23 13:33 13:33 13:48 WBC (4.4-10.8) 10^3/uL RBC (4.36-5.78) 10^6/uL Hgb (13.5-17.5) g/dL Hct (40.0-50.0) % MCV (80-95) fL MCH (27.0-33.0) pg MCHC (32.0-36.0) % RDW (11.8-14.1) % Plt Count (130-400) 10^3/uL MPV (8.0-11.0) fL Immature Gran % % Neutrophils % % Lymphocytes % % Monocytes % % Eosinophils % % Basophils % % Nucleated RBC % (0.0-0.3) % Absolute Neutrophils (1.2-6.7) 10^3/uL Absolute Lymphocytes (1.2-3.4) 10^3/uL Absolute Monocytes (0.1-0.8) 10^3/uL Absolute Eosinophils (0.0-0.7) 10^3/uL Absolute Basophils (0.0-0.2) 10^3/uL ESR (0-20) mm/hr PT (9.1-11.1) sec INR (0.9-1.1) APTT (23.6-32.8) sec VBG Lactate (0.6-1.4) mmol/L Sodium Potassium Chloride Carbon Dioxide Anion Gap BUN Creatinine Est GFR (CKD-EPI 2020) Glucose 113 H Calcium Cancelled 9.4 Magnesium (1.8-2.4) mg/dL 1.7 L Total Bilirubin (0.2-1.0) mg/dL 1.8 H Conjugated Bilirubin (0.0-0.2) mg/dL 0.5 H AST (15-37) U/L 26 ALT (16-63) U/L 28 Alkaline Phosphatase (46-116) U/L 86 Ammonia (11-32) umol/L 26 Troponin I (< or =60) ng/L < 50 NT-Pro-B Natriuret Pep (<300) pg/mL 70 Total Protein (6.4-8.2) g/dL 7.1 Albumin (3.4-5.0) g/dL 3.8 Lipase (16-77) U/L 33 Procalcitonin ng/mL < 0.1 Urine Color (Yellow) Urine Clarity (Clear) Urine pH (5-8) Ur Specific [place] (1.005-1.025) Urine Protein (Neg-Trace) mg/dL Urine Ketones (Negative) mg/dL Urine Blood (Negative) Urine Nitrite (Negative) Urine Bilirubin (Negative) Urine Urobilinogen (Up to 0.2) mg/dL Ur Leukocyte Esterase (Negative) Urine RBC (0-2) HPF Urine WBC (0-5) HPF Ur Epithelial Cells (Negative) HPF Urine Crystals (Negative) HPF Urine Bacteria (Negative) HPF Urine Casts (Negative) LPF Urine Mucus (Negative) Ur Culture Indicated? Urine Glucose (Negative) mg/dL ABO/Rh A Positive Antibody Screen POSITIVE Range/Units 08/19/23 14:26 WBC (4.4-10.8) 10^3/uL RBC (4.36-5.78) 10^6/uL Hgb (13.5-17.5) g/dL Hct (40.0-50.0) % MCV (80-95) fL MCH (27.0-33.0) pg MCHC (32.0-36.0) % RDW (11.8-14.1) % Plt Count (130-400) 10^3/uL MPV (8.0-11.0) fL Immature Gran % % Neutrophils % % Lymphocytes % % Monocytes % % Eosinophils % % Basophils % % Nucleated RBC % (0.0-0.3) % Absolute Neutrophils (1.2-6.7) 10^3/uL Absolute Lymphocytes (1.2-3.4) 10^3/uL Absolute Monocytes (0.1-0.8) 10^3/uL Absolute Eosinophils (0.0-0.7) 10^3/uL Absolute Basophils (0.0-0.2) 10^3/uL ESR (0-20) mm/hr PT (9.1-11.1) sec INR (0.9-1.1) APTT (23.6-32.8) sec VBG Lactate (0.6-1.4) mmol/L Sodium Potassium Chloride Carbon Dioxide Anion Gap BUN Creatinine Est GFR (CKD-EPI 2020) Glucose Calcium Magnesium (1.8-2.4) mg/dL Total Bilirubin (0.2-1.0) mg/dL Conjugated Bilirubin (0.0-0.2) mg/dL AST (15-37) U/L ALT (16-63) U/L Alkaline Phosphatase (46-116) U/L Ammonia (11-32) umol/L Troponin I (< or =60) ng/L NT-Pro-B Natriuret Pep (<300) pg/mL Total Protein (6.4-8.2) g/dL Albumin (3.4-5.0) g/dL Lipase (16-77) U/L Procalcitonin ng/mL Urine Color (Yellow) Yellow Urine Clarity (Clear) Clear Urine pH (5-8) 5.5 Ur Specific [place] (1.005-1.025) 1.010 Urine Protein (Neg-Trace) mg/dL Trace Urine Ketones (Negative) mg/dL 40 H Urine Blood (Negative) Negative Urine Nitrite (Negative) Negative Urine Bilirubin (Negative) Negative Urine Urobilinogen (Up to 0.2) mg/dL 1.0 H Ur Leukocyte Esterase (Negative) Negative Urine RBC (0-2) HPF 0-2 Urine WBC (0-5) HPF 0-2 Ur Epithelial Cells (Negative) HPF Rare Urine Crystals (Negative) HPF Negative Urine Bacteria (Negative) HPF Rare Urine Casts (Negative) LPF 0-2 Hyaline Urine Mucus (Negative) Trace Ur Culture Indicated? No Urine Glucose (Negative) mg/dL >=1000 H ABO/Rh Antibody Screen Quality:SDOH Health Related Social Needs: No Data to Display PFSH All Active Problems (Updated 08/19/23 @ 15:08 by QUYNH Hale) Epigastric abdominal pain (Acute) Gastritis (Acute) Esophageal reflux (Chronic) Esophagitis (Acute) Left rotator cuff tear (Acute) Drug abuse (Chronic) Red blood cell antibody positive with compatible PRBC difficult to obtain (Acute) Anemia (Chronic) Hx of caloric malnutrition (Acute) Nausea & vomiting (Acute) Melena (Acute) Duodenal ulcer disease (Acute) Left inguinal hernia (Acute) Gallstones (Chronic) 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) Has ultrasound done every 6 months last done 01/09/20 Esophageal varices (Chronic) Hepatitis C (Chronic) Cirrhosis (Chronic) Medical History (Updated 08/19/23 @ 15:08 by QUYNH Hale) Hx of non-insulin dependent diabetes mellitus Hx of pneumothorax History of rib fracture Hx of fracture of clavicle Scoliosis Hypertension Hepatic encephalopathy Pancytopenia Red blood cell antibody positive with compatible PRBC difficult to obtain History of GI bleed variceal Surgical History (Updated 01/23/20 @ 10:50 by Nadeen Davalos RN) Hx of basal cell carcinoma excision Hx of Achilles tendon repair History of esophagogastroduodenoscopy (EGD) (~01/16/20) multiple Previous back surgery S/P hernia repair S/P shoulder surgery Family History Mother Breast cancer Sister Breast cancer Heart disease Diabetes Sister Breast cancer Hypertension Brother Cancer leukemia Brother Heart disease Diabetes Hypertension Maternal Grandmother Heart disease Father Diabetes Hypertension Social History Smoking/Tobacco Use Status: Never Smoking risk assessment performed?: Yes Alcohol Intake: former Year quit: 2019 Drug use: Current Sobriety Substance use type: does not use and former substance user Details: 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 Current gender identity: male Do you feel safe at home: Yes Do you feel safe in your relationship?: Yes Sign Out Sign Out Data: Sign Out Comment: Patient presented with severe epigastric ABD pain and a new bulge in epigastric region- there appears to be a possible hernia on CT scan to this area just inferior to xyphoid, do not visualize bowel- but the area is very very tender. Radiologist states no abscess here, concern this may need close follow-up or a surgical consult, at minimum review of CT, and patient would like a surgical opinion on this issue. Took significant pain control 1.5 of Dilaudid Labs reassuring, has chronic cirrhosis. May need narc's to go with close surgical follow-up. Last updated by Abdiaziz Madrid PA at 08/19/23 15:17
[2023-08-19 13:48] LABS: Lactate 1.7 mmol/L (0.6-1.4)
[2023-08-19 13:51] LABS: Abs Immature Grans 0.02 10^3/uL (0.0-0.06); Absolute Basophil Count 0.03 10^3/uL (0.0-0.2); Absolute Lymphocyte Count 0.84 10^3/uL (1.2-3.4); Absolute Monocyte Count 0.53 10^3/uL (0.1-0.8); Absolute Neutrophil Count 4.36 10^3/uL (1.2-6.7); Basophils % 0.5 %; Eosinophils % 1.7 %; HCT 40.4 % (40.0-50.0); HGB 14.4 g/dL (13.5-17.5); Immature Grans % 0.3 %; Lymphocytes % 14.3 %; MCH 34.1 pg (27.0-33.0); MCHC 35.6 % (32.0-36.0); MCV 96 fL (80-95); MPV 8.1 fL (8.0-11.0); Neutrophils % 74.2 %; Platelet Count 113 10^3/uL (130-400); RBC 4.22 10^6/uL (4.36-5.78); RDW 12.6 % (11.8-14.1); RDW-SD 43.8 fL; WBC 5.88 10^3/uL (4.4-10.8)
[2023-08-19] MEDS: HYDROmorphone 2 MG/ML SYR 1 MG IVP (13:51)
[2023-08-19 13:52] LABS: ESR 6 mm/hr (0-20)
[2023-08-19] MEDS: Ondansetron 4 MG/2 ML VIAL IVP (13:53)
[2023-08-19] MEDS: Omnipaque 350 MG/ML 500 ML BTL-Imaging package 125 ML IJ (13:55)
[2023-08-19] MEDS: Normal Saline - Diluent 50 ML VIAL IJ (14:02)
--- NOTE | 2023-08-19 14:03 | DI.CT_ITS ---
Exam(s) CT THORAX ABD/PEL CTA EXAM: CT THORAX ABD/PEL CTA CLINICAL HISTORY: severe upper abdominal pain. TECHNIQUE: Imaging Protocol: Axial CT angiography was performed with multi-slice acquisition and mu lti-planar and/or 3D reconstructions. CONTRAST MATERIAL: Intravenous: Omnipaque 350 Contrast volume:100 ml COMPARISON: CT CT CHEST/ABD/PEL W from 11/02/2019 CR XR ABDOMEN FLAT PLATE from 11/05/2019 FINDINGS: CHEST: Pulmonary Arteries: No evidence of filling defects to suggest pulmonary emboli. Tracheobronchial tree: No bronchiectasis or mucus plugging. Mediastinum and Joelle: No dominant adenopathy or fluid collection. Pulmonary parenchyma: No consolidation or dominant measurable mass. Pleura: No effusion. No pneumothorax. Heart: The heart is notdilated. No coronary artery calcifications are seen. Aorta: Thoracic aorta non-dilated. Bones: Old left rib fractures. Prior spinal surgery. Prominent osteophytes. Scoliosis. Tubes, Catheters, and Lines: None. Soft tissues: Unremarkable. ABDOMEN and PELVIS: Liver: Normal size. Normal density. No suspicious measurable mass. Tips. Portal, Superior Mesenteric, and Splenic Veins: Unremarkable. Gallbladder and Biliary Tract: Cholelithiasis. No biliary dilatation. Pancreas: Metallic coils create artifact in the upper abdomen. Normal density, no abnormal calcificat ions or inflammatory process. Spleen: Normal. Adrenals: No masses seen. Kidneys: Normal size, contour and axis. Nonobstructing bilateral renal calculi. No obstructive uropat hy. No masses seen. Vasculature: Abdominal aorta non-dilated. Bowel: No obstruction or bowel wall thickening. Peritoneal Cavity: No ascites, collection or mesenteric inflammatory response. Lymph Nodes: Within normal limits. Soft Tissues: Unremarkable. Bladder: Symmetric distention, no gross wall thickening. Reproductive Organs: Unremarkable as visualized. Bones: Severe scoliosis. Spinal fusion. IMPRESSION: 1. No evidence of pulmonary embolism or aortic dissection.. 2. No acute abdominal or pelvic process. Bilateral nonobstructing renal calculi. TIPS in place. RADIATION DOSE DELIVERED: 1,151.86mGy.cm Total DLP DATA REPOSITORY: All CT scans at this facility are submitted to the National Radiology Data Registry (NRDR) Dose Index Registry (DIR) with the [employer] (A[employer]). RADIATION OPTIMIZATION: All CT scans at this facility use at least one of these dose optimization te chniques: automated exposure control; mA and/or kV adjustment per patient size (includes targeted exa ms where dose is matched to clinical indication); or iterative reconstruction.
[2023-08-19 14:04] LABS: INR 1.2 (0.9-1.1); PTT Activated 25.3 sec (23.6-32.8); Prothrombin Time 11.9 sec (9.1-11.1)
[2023-08-19 14:08] LABS: Ammonia 26 umol/L (11-32)
[2023-08-19 14:19] LABS: ALT 28 U/L (16-63); AST 26 U/L (15-37); Albumin 3.8 g/dL (3.4-5.0); Alkaline Phosphatase 86 U/L (46-116); Anion Gap 9.9 mmol/L (3-11); BUN 16 mg/dL (7-18); Bilirubin, Direct 0.5 mg/dL (0.0-0.2); Bilirubin, Total 1.8 mg/dL (0.2-1.0); CO2 26.1 mmol/L (21.0-32.0); CREATININE 0.9 mg/dL (0.70-1.30); Calcium 9.4 mg/dL (8.5-10.1); Chloride 106 mmol/L (98-107); Estimated GFR 91.88 (mL/min/1.73m2); Glucose 113 mg/dL (74-106); Lipase 33 U/L (16-77); Magnesium 1.7 mg/dL (1.8-2.4); NT-proBNP 70 pg/mL (<300); Potassium 3.9 mmol/L (3.5-5.1); Sodium 142 mmol/L (136-145); Total Protein 7.1 g/dL (6.4-8.2); Troponin I < 50 ng/L (< or =60)
[2023-08-19 14:25] LABS: Procalcitonin < 0.1 ng/mL
[2023-08-19] MEDS: HYDROmorphone 2 MG/ML SYR 0.5 MG IVP (14:26)
[2023-08-19 14:33] LABS: Bilirubin Negative (Negative); Blood Negative (Negative); Clarity Clear (Clear); Glucose >=1000 mg/dL (Negative); Ketones 40 mg/dL (Negative); Leukocyte Esterase Negative (Negative); Nitrite Negative (Negative); pH 5.5 (5-8)
[2023-08-19 14:42] LABS: Bacteria Rare HPF (Negative); C & S Indicated? No; Casts 0-2 Hyaline LPF (Negative); Crystals Negative HPF (Negative); Epithelial Cells Rare HPF (Negative); Mucus Trace (Negative); RBC 0-2 HPF (0-2); WBC 0-2 HPF (0-5)
--- NOTE | 2023-08-19 15:44 | ED.PROG_ITS ---
Date of service: 08/19/23 Time of Service: 15:44 Medical Decision Making Care assumed from provider (QUYNH Guillory) Please see their initial HPI, PE, and documentation. Discussed patient details and case and pending workup and disposition. Patient is hemodynamically stable, and alert and oriented. At the time of signout awaiting surgical consult for tender abdominal wall and palpated mass. 1616: Spoke with Dr. Paul who is on-call for surgery discussed patient case in details he will look at the CT images when he is able. I will speak with the radiologist again to confirm that there is nothing that could be addended on the read for this area that is tender substernally. Spoke with Dr. Rodriguez radiologist who was able to review an old image from 2019 no significant change. She reports to me that there is no stranding no hernia noted that this is probably just a prominent subxiphoid normal variant. I did speak with Dr. Cabrales again who recommended an ultrasound which they have left the house for the day. Will order an outpatient ultrasound for tomorrow and place patient on care management for surgery follow up. On further patient discussion he has a history of cirrhosis and has been having right sided abdominal pain for couple weeks worse over the last couple of days, I did discuss with him his CT results he does have a ultrasound scheduled for Tuesday at 3:15 PM. I did encourage him to keep this ultrasound. I discussed scheduling an outpatient ultrasound however at this time he can just keep that appointment. Patient placed on the care management list to follow-up with general surgery pending any further recommendations from Dr. Cabrales after reviewing the images. Patient requesting Zofran, given 3 tabs to go. No further recommendations received from Surgery at this time. Patient discharged in hemodynamically stable condition. Discuss strict return instructions and follow-up care. This text was generated using [employer] system, please disregard any oddities of phrase or misspellings. Medical Records Medical records reviewed: Yes I reviewed the patient's medical records. Imaging Data Radiologic Study: Imaging: CT Scan Radiologist's impression: FINDINGS: CHEST: Pulmonary Arteries: No evidence of filling defects to suggest pulmonary emboli. Tracheobronchial tree: No bronchiectasis or mucus plugging. Mediastinum and Joelle: No dominant adenopathy or fluid collection. Pulmonary parenchyma: No consolidation or dominant measurable mass. Pleura: No effusion. No pneumothorax. Heart: The heart is notdilated. No coronary artery calcifications are seen. Aorta: Thoracic aorta non-dilated. Bones: Old left rib fractures. Prior spinal surgery. Prominent osteophytes. Scoliosis. Tubes, Catheters, and Lines: None. Soft tissues: Unremarkable. ABDOMEN and PELVIS: Liver: Normal size. Normal density. No suspicious measurable mass. Tips. Portal, Superior Mesenteric, and Splenic Veins: Unremarkable. Gallbladder and Biliary Tract: Cholelithiasis. No biliary dilatation. Pancreas: Metallic coils create artifact in the upper abdomen. Normal density, no abnormal calcifications or inflammatory process. Spleen: Normal. Adrenals: No masses seen. Kidneys: Normal size, contour and axis. Nonobstructing bilateral renal calculi. No obstructive uropathy. No masses seen. Vasculature: Abdominal aorta non-dilated. Bowel: No obstruction or bowel wall thickening. Peritoneal Cavity: No ascites, collection or mesenteric inflammatory response. Lymph Nodes: Within normal limits. Soft Tissues: Unremarkable. Bladder: Symmetric distention, no gross wall thickening. Reproductive Organs: Unremarkable as visualized. Bones: Severe scoliosis. Spinal fusion. IMPRESSION: 1. No evidence of pulmonary embolism or aortic dissection.. 2. No acute abdominal or pelvic process. Bilateral nonobstructing renal calculi. TIPS in place. Lab Data Lab results reviewed: Yes I reviewed the patient's lab results. Labs: Laboratory Tests Range/Units 08/19/23 08/19/23 08/19/23 13:33 13:33 13:33 WBC (4.4-10.8) 10^3/uL 5.88 RBC (4.36-5.78) 10^6/uL 4.22 L Hgb (13.5-17.5) g/dL 14.4 Hct (40.0-50.0) % 40.4 MCV (80-95) fL 96 H MCH (27.0-33.0) pg 34.1 H MCHC (32.0-36.0) % 35.6 RDW (11.8-14.1) % 12.6 Plt Count (130-400) 10^3/uL 113 L MPV (8.0-11.0) fL 8.1 Immature Gran % % 0.3 Neutrophils % % 74.2 Lymphocytes % % 14.3 Monocytes % % 9.0 Eosinophils % % 1.7 Basophils % % 0.5 Nucleated RBC % (0.0-0.3) % 0.0 Absolute Neutrophils (1.2-6.7) 10^3/uL 4.36 Absolute Lymphocytes (1.2-3.4) 10^3/uL 0.84 L Absolute Monocytes (0.1-0.8) 10^3/uL 0.53 Absolute Eosinophils (0.0-0.7) 10^3/uL 0.10 Absolute Basophils (0.0-0.2) 10^3/uL 0.03 ESR (0-20) mm/hr 6 PT (9.1-11.1) sec 11.9 H INR (0.9-1.1) 1.2 H APTT (23.6-32.8) sec 25.3 VBG Lactate (0.6-1.4) mmol/L 1.7 H Sodium Cancelled 142 Potassium Cancelled 3.9 Chloride Cancelled Carbon Dioxide Anion Gap BUN Creatinine Est GFR (CKD-EPI 2020) Glucose Calcium Magnesium (1.8-2.4) mg/dL Total Bilirubin (0.2-1.0) mg/dL Conjugated Bilirubin (0.0-0.2) mg/dL AST (15-37) U/L ALT (16-63) U/L Alkaline Phosphatase (46-116) U/L Ammonia (11-32) umol/L Troponin I (< or =60) ng/L NT-Pro-B Natriuret Pep (<300) pg/mL Total Protein (6.4-8.2) g/dL Albumin (3.4-5.0) g/dL Lipase (16-77) U/L Procalcitonin ng/mL Urine Color (Yellow) Urine Clarity (Clear) Urine pH (5-8) Ur Specific [place] (1.005-1.025) Urine Protein (Neg-Trace) mg/dL Urine Ketones (Negative) mg/dL Urine Blood (Negative) Urine Nitrite (Negative) Urine Bilirubin (Negative) Urine Urobilinogen (Up to 0.2) mg/dL Ur Leukocyte Esterase (Negative) Urine RBC (0-2) HPF Urine WBC (0-5) HPF Ur Epithelial Cells (Negative) HPF Urine Crystals (Negative) HPF Urine Bacteria (Negative) HPF Urine Casts (Negative) LPF Urine Mucus (Negative) Ur Culture Indicated? Urine Glucose (Negative) mg/dL ABO/Rh Antibody Screen Range/Units 08/19/23 08/19/23 08/19/23 13:33 13:33 13:33 WBC (4.4-10.8) 10^3/uL RBC (4.36-5.78) 10^6/uL Hgb (13.5-17.5) g/dL Hct (40.0-50.0) % MCV (80-95) fL MCH (27.0-33.0) pg MCHC (32.0-36.0) % RDW (11.8-14.1) % Plt Count (130-400) 10^3/uL MPV (8.0-11.0) fL Immature Gran % % Neutrophils % % Lymphocytes % % Monocytes % % Eosinophils % % Basophils % % Nucleated RBC % (0.0-0.3) % Absolute Neutrophils (1.2-6.7) 10^3/uL Absolute Lymphocytes (1.2-3.4) 10^3/uL Absolute Monocytes (0.1-0.8) 10^3/uL Absolute Eosinophils (0.0-0.7) 10^3/uL Absolute Basophils (0.0-0.2) 10^3/uL ESR (0-20) mm/hr PT (9.1-11.1) sec INR (0.9-1.1) APTT (23.6-32.8) sec VBG Lactate (0.6-1.4) mmol/L Sodium Potassium Chloride 106 Carbon Dioxide Cancelled 26.1 Anion Gap Cancelled 9.9 BUN Cancelled Creatinine Est GFR (CKD-EPI 2020) Glucose Calcium Magnesium (1.8-2.4) mg/dL Total Bilirubin (0.2-1.0) mg/dL Conjugated Bilirubin (0.0-0.2) mg/dL AST (15-37) U/L ALT (16-63) U/L Alkaline Phosphatase (46-116) U/L Ammonia (11-32) umol/L Troponin I (< or =60) ng/L NT-Pro-B Natriuret Pep (<300) pg/mL Total Protein (6.4-8.2) g/dL Albumin (3.4-5.0) g/dL Lipase (16-77) U/L Procalcitonin ng/mL Urine Color (Yellow) Urine Clarity (Clear) Urine pH (5-8) Ur Specific [place] (1.005-1.025) Urine Protein (Neg-Trace) mg/dL Urine Ketones (Negative) mg/dL Urine Blood (Negative) Urine Nitrite (Negative) Urine Bilirubin (Negative) Urine Urobilinogen (Up to 0.2) mg/dL Ur Leukocyte Esterase (Negative) Urine RBC (0-2) HPF Urine WBC (0-5) HPF Ur Epithelial Cells (Negative) HPF Urine Crystals (Negative) HPF Urine Bacteria (Negative) HPF Urine Casts (Negative) LPF Urine Mucus (Negative) Ur Culture Indicated? Urine Glucose (Negative) mg/dL ABO/Rh Antibody Screen Range/Units 08/19/23 08/19/23 08/19/23 13:33 13:33 13:33 WBC (4.4-10.8) 10^3/uL RBC (4.36-5.78) 10^6/uL Hgb (13.5-17.5) g/dL Hct (40.0-50.0) % MCV (80-95) fL MCH (27.0-33.0) pg MCHC (32.0-36.0) % RDW (11.8-14.1) % Plt Count (130-400) 10^3/uL MPV (8.0-11.0) fL Immature Gran % % Neutrophils % % Lymphocytes % % Monocytes % % Eosinophils % % Basophils % % Nucleated RBC % (0.0-0.3) % Absolute Neutrophils (1.2-6.7) 10^3/uL Absolute Lymphocytes (1.2-3.4) 10^3/uL Absolute Monocytes (0.1-0.8) 10^3/uL Absolute Eosinophils (0.0-0.7) 10^3/uL Absolute Basophils (0.0-0.2) 10^3/uL ESR (0-20) mm/hr PT (9.1-11.1) sec INR (0.9-1.1) APTT (23.6-32.8) sec VBG Lactate (0.6-1.4) mmol/L Sodium Potassium Chloride Carbon Dioxide Anion Gap BUN 16 Creatinine Cancelled 0.9 Est GFR (CKD-EPI 2020) Cancelled 91.88 Glucose Cancelled Calcium Magnesium (1.8-2.4) mg/dL Total Bilirubin (0.2-1.0) mg/dL Conjugated Bilirubin (0.0-0.2) mg/dL AST (15-37) U/L ALT (16-63) U/L Alkaline Phosphatase (46-116) U/L Ammonia (11-32) umol/L Troponin I (< or =60) ng/L NT-Pro-B Natriuret Pep (<300) pg/mL Total Protein (6.4-8.2) g/dL Albumin (3.4-5.0) g/dL Lipase (16-77) U/L Procalcitonin ng/mL Urine Color (Yellow) Urine Clarity (Clear) Urine pH (5-8) Ur Specific [place] (1.005-1.025) Urine Protein (Neg-Trace) mg/dL Urine Ketones (Negative) mg/dL Urine Blood (Negative) Urine Nitrite (Negative) Urine Bilirubin (Negative) Urine Urobilinogen (Up to 0.2) mg/dL Ur Leukocyte Esterase (Negative) Urine RBC (0-2) HPF Urine WBC (0-5) HPF Ur Epithelial Cells (Negative) HPF Urine Crystals (Negative) HPF Urine Bacteria (Negative) HPF Urine Casts (Negative) LPF Urine Mucus (Negative) Ur Culture Indicated? Urine Glucose (Negative) mg/dL ABO/Rh Antibody Screen Range/Units 08/19/23 08/19/23 08/19/23 13:33 13:33 13:48 WBC (4.4-10.8) 10^3/uL RBC (4.36-5.78) 10^6/uL Hgb (13.5-17.5) g/dL Hct (40.0-50.0) % MCV (80-95) fL MCH (27.0-33.0) pg MCHC (32.0-36.0) % RDW (11.8-14.1) % Plt Count (130-400) 10^3/uL MPV (8.0-11.0) fL Immature Gran % % Neutrophils % % Lymphocytes % % Monocytes % % Eosinophils % % Basophils % % Nucleated RBC % (0.0-0.3) % Absolute Neutrophils (1.2-6.7) 10^3/uL Absolute Lymphocytes (1.2-3.4) 10^3/uL Absolute Monocytes (0.1-0.8) 10^3/uL Absolute Eosinophils (0.0-0.7) 10^3/uL Absolute Basophils (0.0-0.2) 10^3/uL ESR (0-20) mm/hr PT (9.1-11.1) sec INR (0.9-1.1) APTT (23.6-32.8) sec VBG Lactate (0.6-1.4) mmol/L Sodium Potassium Chloride Carbon Dioxide Anion Gap BUN Creatinine Est GFR (CKD-EPI 2020) Glucose 113 H Calcium Cancelled 9.4 Magnesium (1.8-2.4) mg/dL 1.7 L Total Bilirubin (0.2-1.0) mg/dL 1.8 H Conjugated Bilirubin (0.0-0.2) mg/dL 0.5 H AST (15-37) U/L 26 ALT (16-63) U/L 28 Alkaline Phosphatase (46-116) U/L 86 Ammonia (11-32) umol/L 26 Troponin I (< or =60) ng/L < 50 NT-Pro-B Natriuret Pep (<300) pg/mL 70 Total Protein (6.4-8.2) g/dL 7.1 Albumin (3.4-5.0) g/dL 3.8 Lipase (16-77) U/L 33 Procalcitonin ng/mL < 0.1 Urine Color (Yellow) Urine Clarity (Clear) Urine pH (5-8) Ur Specific [place] (1.005-1.025) Urine Protein (Neg-Trace) mg/dL Urine Ketones (Negative) mg/dL Urine Blood (Negative) Urine Nitrite (Negative) Urine Bilirubin (Negative) Urine Urobilinogen (Up to 0.2) mg/dL Ur Leukocyte Esterase (Negative) Urine RBC (0-2) HPF Urine WBC (0-5) HPF Ur Epithelial Cells (Negative) HPF Urine Crystals (Negative) HPF Urine Bacteria (Negative) HPF Urine Casts (Negative) LPF Urine Mucus (Negative) Ur Culture Indicated? Urine Glucose (Negative) mg/dL ABO/Rh A Positive Antibody Screen POSITIVE Range/Units 08/19/23 14:26 WBC (4.4-10.8) 10^3/uL RBC (4.36-5.78) 10^6/uL Hgb (13.5-17.5) g/dL Hct (40.0-50.0) % MCV (80-95) fL MCH (27.0-33.0) pg MCHC (32.0-36.0) % RDW (11.8-14.1) % Plt Count (130-400) 10^3/uL MPV (8.0-11.0) fL Immature Gran % % Neutrophils % % Lymphocytes % % Monocytes % % Eosinophils % % Basophils % % Nucleated RBC % (0.0-0.3) % Absolute Neutrophils (1.2-6.7) 10^3/uL Absolute Lymphocytes (1.2-3.4) 10^3/uL Absolute Monocytes (0.1-0.8) 10^3/uL Absolute Eosinophils (0.0-0.7) 10^3/uL Absolute Basophils (0.0-0.2) 10^3/uL ESR (0-20) mm/hr PT (9.1-11.1) sec INR (0.9-1.1) APTT (23.6-32.8) sec VBG Lactate (0.6-1.4) mmol/L Sodium Potassium Chloride Carbon Dioxide Anion Gap BUN Creatinine Est GFR (CKD-EPI 2020) Glucose Calcium Magnesium (1.8-2.4) mg/dL Total Bilirubin (0.2-1.0) mg/dL Conjugated Bilirubin (0.0-0.2) mg/dL AST (15-37) U/L ALT (16-63) U/L Alkaline Phosphatase (46-116) U/L Ammonia (11-32) umol/L Troponin I (< or =60) ng/L NT-Pro-B Natriuret Pep (<300) pg/mL Total Protein (6.4-8.2) g/dL Albumin (3.4-5.0) g/dL Lipase (16-77) U/L Procalcitonin ng/mL Urine Color (Yellow) Yellow Urine Clarity (Clear) Clear Urine pH (5-8) 5.5 Ur Specific [place] (1.005-1.025) 1.010 Urine Protein (Neg-Trace) mg/dL Trace Urine Ketones (Negative) mg/dL 40 H Urine Blood (Negative) Negative Urine Nitrite (Negative) Negative Urine Bilirubin (Negative) Negative Urine Urobilinogen (Up to 0.2) mg/dL 1.0 H Ur Leukocyte Esterase (Negative) Negative Urine RBC (0-2) HPF 0-2 Urine WBC (0-5) HPF 0-2 Ur Epithelial Cells (Negative) HPF Rare Urine Crystals (Negative) HPF Negative Urine Bacteria (Negative) HPF Rare Urine Casts (Negative) LPF 0-2 Hyaline Urine Mucus (Negative) Trace Ur Culture Indicated? No Urine Glucose (Negative) mg/dL >=1000 H ABO/Rh Antibody Screen Quality:SDOH Health Related Social Needs: No Data to Display Sign Out Sign Out Data: Sign Out Comment: Patient presented with severe epigastric ABD pain and a new bulge in epigastric region- there appears to be a possible hernia on CT scan to this area just inferior to xyphoid, do not visualize bowel- but the area is very very tender. Radiologist states no abscess here, concern this may need close follow-up or a surgical consult, at minimum review of CT, and patient would like a surgical opinion on this issue. Took significant pain control 1.5 of Dilaudid Labs reassuring, has chronic cirrhosis. May need narc's to go with close surgical follow-up. Last updated by Abdiaziz Madrid PA at 08/19/23 15:17 Discharge Plan Disposition Patient Disposition: Home Condition: Stable Discharge Details Clinical Impression: Epigastric abdominal pain Primary Care Provider: Unknown,Unknown ED Provider: Meryl Vazquez Home Meds and New Rx's Prescriptions: New tramadol 50 mg tablet 50 mg PO BID PRN (Reason: pain) Qty: 6 0RF Rx Instructions: Take 1 tablet twice daily as needed with food for moderate to severe pain Continued Centrum Silver 0.4-300-250 mg-mcg-mcg tablet 1 tab PO DAILY cholecalciferol (vitamin D3) 1,250 mcg (50,000 unit) capsule 1,250 mcg PO QMONTH atorvastatin 20 mg tablet 20 mg PO DAILY Invokana 100 mg tablet 100 mg PO DAILY lisinopril 10 mg tablet 10 mg PO DAILY Lumigan 0.01 % drops 1 drp ophthalmic (eye) DAILY Discharge Instructions Instructions: Epigastric Pain (ED) Additional Instructions: You were seen in the emergency department for your right-sided and epigastric ab dominal pain, we performed a CTA of your chest abdomen and pelvis which showed no vascular abnormality of the aorta, no pulmonary embolism, no dilation of the biliary tree of the liver, gallbladder, pancreas, no occlusion to any of your bowel. You may have a mild abdominal wall hernia in the epigastric region containing some fat but no incarceration of any bowel. Her laboratory workup is reassuring for any signs of cardiac emergency or infectious etiology. I am having surgery consult on your case for likely follow-up in office for possible hernia surgical consult. Please return to the emergency department for any severe increase in abdominal pain especially chest pain, palpitations, loss of consciousness or fainting, visual changes, intractable nausea or vomiting, fever, black tarry stools, complete constipation without passing of any gas. Keep your ultrasound appointment as previously scheduled. Take the pain medication as prescribed. Follow up with Surgery as needed. Referrals: [facility] [Provider Group] Sari Yusuf DO [OSTEOPATHIC DOCTOR] - 1 week
--- NOTE | 2023-08-19 17:11 | NUR.NOTE ---
Nursing Note:PT needs follow up with [facility] General surgery in 3 days - week for abdominal pain, ED follow up. Pamela, ED
[2023-08-19] MEDS: Ondansetron O.D.T. 4 MG TABEF, 3 TABS/BTL PO (18:05)
--- NOTE | 2023-08-19 18:47 | PGE_ITS ---
Date of Service Date of service: 08/19/23 Time of Service: 18:15 Assessment and Plan Assessment and plan (1) Epigastric abdominal pain: Status: Acute Assessment and plan: I reviewed the patient's CT scan: No soft tissue mass or collection. No hernia or fascial defect. No stranding or anything else out of ordinary in epigastric soft tissue or peritoneal cavity. I don't see any radiologic evidence of inflammation around the TIPS. Labwork mostly unrevealing . . . slight increase in bilirubin compared with prior labwork a few years ago (1.8 from 1.2). Known cirrhotic. Looks like he has gallstones. Over the phone when consulted I recommended an ultrasound. That can't be done until Tuesday and so the patient was discharged. DDx: Recurrent PUD, GB disease, issue with his TIPS to name a few ideas. Does NOT have a hernia on imaging. Nothing on imaging shows any mass anywhere. My highest suspicion, though I didn't get to examine him, is recurrent ulcer disease. I recommended that the ER call him and make sure he is on high-dose PPI and Carafate for 14 days and see if things improve. Sub or retro-sternal pain is usually gastric reflux, PUD, pulmonary inflamation, costochondritis, or even cardiac disease. All of these are by-in-large managed medically and reflux or ulcer disease can easily be empirically treated. If he has gallstones and this is related to his GB, he will need surgery at a tertiary center because of his liver condition and history of portal hypertension/esoph varices. Further followup - with PCP after trial of PPI/Carafate. ER provider stated she would followup with the recs and call him. Subjective Subjective Interval history since last seen: Asked to come consult on patient with pulsatile mass in the substernal / epigastric region. Reportedly going on for 2+ weeks. CTA of C/A/P unrevealing in soft tissue and vasculature. Reported history of PUD, cirrhosis, TIPS and varices. Unfortunately, when I had arrived, patient had been discharged. Exam Narrative Exam Narrative: Patient had left Objective Last Vital Signs Pulse 68 08/19/23 17:43 Resp 18 08/19/23 17:43 BP 121/58 L 08/19/23 17:43 Pulse Ox 99 08/19/23 17:43 Laboratory Results - last 24 hr 08/19/23 08/19/23 08/19/23 13:33 13:33 13:33 WBC 5.88 RBC 4.22 L Hgb 14.4 Hct 40.4 MCV 96 H MCH 34.1 H MCHC 35.6 RDW 12.6 Plt Count 113 L MPV 8.1 Immature Gran % 0.3 Neutrophils % 74.2 Lymphocytes % 14.3 Monocytes % 9.0 Eosinophils % 1.7 Basophils % 0.5 Nucleated RBC % 0.0 Absolute Neutrophils 4.36 Absolute Lymphocytes 0.84 L Absolute Monocytes 0.53 Absolute Eosinophils 0.10 Absolute Basophils 0.03 ESR 6 PT 11.9 H INR 1.2 H APTT 25.3 VBG Lactate 1.7 H Sodium Cancelled 142 Potassium Cancelled 3.9 Chloride Cancelled Carbon Dioxide Anion Gap BUN Creatinine Est GFR (CKD-EPI 2020) Glucose Calcium Magnesium Total Bilirubin Conjugated Bilirubin AST ALT Alkaline Phosphatase Ammonia Troponin I NT-Pro-B Natriuret Pep Total Protein Albumin Lipase Procalcitonin Urine Color Urine Clarity Urine pH Ur Specific [place] Urine Protein Urine Ketones Urine Blood Urine Nitrite Urine Bilirubin Urine Urobilinogen Ur Leukocyte Esterase Urine RBC Urine WBC Ur Epithelial Cells Urine Crystals Urine Bacteria Urine Casts Urine Mucus Ur Culture Indicated? Urine Glucose ABO/Rh Antibody Screen Antibody Identification 08/19/23 08/19/23 08/19/23 13:33 13:33 13:33 WBC RBC Hgb Hct MCV MCH MCHC RDW Plt Count MPV Immature Gran % Neutrophils % Lymphocytes % Monocytes % Eosinophils % Basophils % Nucleated RBC % Absolute Neutrophils Absolute Lymphocytes Absolute Monocytes Absolute Eosinophils Absolute Basophils ESR PT INR APTT VBG Lactate Sodium Potassium Chloride 106 Carbon Dioxide Cancelled 26.1 Anion Gap Cancelled 9.9 BUN Cancelled Creatinine Est GFR (CKD-EPI 2020) Glucose Calcium Magnesium Total Bilirubin Conjugated Bilirubin AST ALT Alkaline Phosphatase Ammonia Troponin I NT-Pro-B Natriuret Pep Total Protein Albumin Lipase Procalcitonin Urine Color Urine Clarity Urine pH Ur Specific [place] Urine Protein Urine Ketones Urine Blood Urine Nitrite Urine Bilirubin Urine Urobilinogen Ur Leukocyte Esterase Urine RBC Urine WBC Ur Epithelial Cells Urine Crystals Urine Bacteria Urine Casts Urine Mucus Ur Culture Indicated? Urine Glucose ABO/Rh Antibody Screen Antibody Identification 08/19/23 08/19/23 08/19/23 13:33 13:33 13:33 WBC RBC Hgb Hct MCV MCH MCHC RDW Plt Count MPV Immature Gran % Neutrophils % Lymphocytes % Monocytes % Eosinophils % Basophils % Nucleated RBC % Absolute Neutrophils Absolute Lymphocytes Absolute Monocytes Absolute Eosinophils Absolute Basophils ESR PT INR APTT VBG Lactate Sodium Potassium Chloride Carbon Dioxide Anion Gap BUN 16 Creatinine Cancelled 0.9 Est GFR (CKD-EPI 2020) Cancelled 91.88 Glucose Cancelled Calcium Magnesium Total Bilirubin Conjugated Bilirubin AST ALT Alkaline Phosphatase Ammonia Troponin I NT-Pro-B Natriuret Pep Total Protein Albumin Lipase Procalcitonin Urine Color Urine Clarity Urine pH Ur Specific [place] Urine Protein Urine Ketones Urine Blood Urine Nitrite Urine Bilirubin Urine Urobilinogen Ur Leukocyte Esterase Urine RBC Urine WBC Ur Epithelial Cells Urine Crystals Urine Bacteria Urine Casts Urine Mucus Ur Culture Indicated? Urine Glucose ABO/Rh Antibody Screen Antibody Identification 08/19/23 08/19/23 08/19/23 13:33 13:33 13:33 WBC RBC Hgb Hct MCV MCH MCHC RDW Plt Count MPV Immature Gran % Neutrophils % Lymphocytes % Monocytes % Eosinophils % Basophils % Nucleated RBC % Absolute Neutrophils Absolute Lymphocytes Absolute Monocytes Absolute Eosinophils Absolute Basophils ESR PT INR APTT VBG Lactate Sodium Potassium Chloride Carbon Dioxide Anion Gap BUN Creatinine Est GFR (CKD-EPI 2020) Glucose 113 H Calcium Cancelled 9.4 Magnesium 1.7 L Total Bilirubin 1.8 H Conjugated Bilirubin 0.5 H AST 26 ALT 28 Alkaline Phosphatase 86 Ammonia Troponin I < 50 NT-Pro-B Natriuret Pep 70 Total Protein 7.1 Albumin 3.8 Lipase 33 Procalcitonin < 0.1 Urine Color Urine Clarity Urine pH Ur Specific [place] Urine Protein Urine Ketones Urine Blood Urine Nitrite Urine Bilirubin Urine Urobilinogen Ur Leukocyte Esterase Urine RBC Urine WBC Ur Epithelial Cells Urine Crystals Urine Bacteria Urine Casts Urine Mucus Ur Culture Indicated? Urine Glucose ABO/Rh A Positive Antibody Screen POSITIVE Antibody Identification Anti-E Anti-c 08/19/23 08/19/23 13:48 14:26 WBC RBC Hgb Hct MCV MCH MCHC RDW Plt Count MPV Immature Gran % Neutrophils % Lymphocytes % Monocytes % Eosinophils % Basophils % Nucleated RBC % Absolute Neutrophils Absolute Lymphocytes Absolute Monocytes Absolute Eosinophils Absolute Basophils ESR PT INR APTT VBG Lactate Sodium Potassium Chloride Carbon Dioxide Anion Gap BUN Creatinine Est GFR (CKD-EPI 2020) Glucose Calcium Magnesium Total Bilirubin Conjugated Bilirubin AST ALT Alkaline Phosphatase Ammonia 26 Troponin I NT-Pro-B Natriuret Pep Total Protein Albumin Lipase Procalcitonin Urine Color Yellow Urine Clarity Clear Urine pH 5.5 Ur Specific [place] 1.010 Urine Protein Trace Urine Ketones 40 H Urine Blood Negative Urine Nitrite Negative Urine Bilirubin Negative Urine Urobilinogen 1.0 H Ur Leukocyte Esterase Negative Urine RBC 0-2 Urine WBC 0-2 Ur Epithelial Cells Rare Urine Crystals Negative Urine Bacteria Rare Urine Casts 0-2 Hyaline Urine Mucus Trace Ur Culture Indicated? No Urine Glucose >=1000 H ABO/Rh Antibody Screen Antibody Identification Time Spent with Patient Time Spent with Patient: 35-49 minutes Time was spent: preparing to see the patient(eg.review tests), referring, communicating with other health medicare compliance auditor and care coordination
== END 2023-08-19 18:05 | disposition home or self-care (01) ==
PROVIDERS: Physician Assistant; Emergency Provider Registered Nurse Emergency
DX: R10.13 Epigastric pain (principal); R19.06 Epigastric swelling, mass or lump; E11.9 Type 2 diabetes mellitus without complications; I10 Essential (primary) hypertension; K74.69 Other cirrhosis of liver; Z79.84 Long term (current) use of oral hypoglycemic drugs; Z79.899 Other long term (current) drug therapy
CPT/HCPCS: 00123; 36415; 71275; 80048; 80076; 83690; 84145; 85652; 86850; 86900; 86901; 93005; 96374; 96375; 96376; 99285; 74174; 81003; 81015; 82140; 83605; 83735; 83880; 84484; 85025; 85610; 85730; 86870; 93010; 99284; J1170; J2405

== ENCOUNTER 2023-08-21 12:25 | Emergency (ER) | payer OTHER, SELFPAY ==
[2023-08-21 12:32] VITALS: BP 171/60; PULSE 62; RESP 14; TEMP 36.7; O2SAT 96
--- NOTE | 2023-08-21 13:00 | ED.GENADUL_ITS ---
Discharge Plan Disposition Patient Disposition: Home Discharge Details Clinical Impression: Abdominal pain, acute, right upper quadrant, Gallstones Primary Care Provider: Unknown,Unknown ED Provider: Torres Putnam [place] Meds and New Rx's Prescriptions: New pantoprazole 40 mg tablet,delayed release (DR/EC) 40 mg PO DAILY Qty: 30 0RF sucralfate [Carafate] 1 gram tablet 1 g PO BID 14 Days Qty: 28 0RF ondansetron 4 mg tablet,disintegrating 4 mg PO BID 5 Days Qty: 10 0RF Continued Centrum Silver 0.4-300-250 mg-mcg-mcg tablet 1 tab PO DAILY cholecalciferol (vitamin D3) 1,250 mcg (50,000 unit) capsule 1,250 mcg PO QMONTH atorvastatin 20 mg tablet 20 mg PO DAILY Invokana 100 mg tablet 100 mg PO DAILY lisinopril 10 mg tablet 10 mg PO DAILY Lumigan 0.01 % drops 1 drp ophthalmic (eye) DAILY tramadol 50 mg tablet 50 mg PO BID PRN (Reason: pain) Qty: 6 0RF Rx Instructions: Take 1 tablet twice daily as needed with food for moderate to severe pain Discharge Instructions Instructions: Abdominal Pain (ED) Additional Instructions: You are seen in the emergency department for your abdominal pain. Your CAT scan showed no sign of any blockage. Your pain may be related to peptic ulcer disease for which you are receiving medications you should take as directed. Please follow-up later this week with your primary care provider. Please return to the emergency department if you develop vomiting that does not stop or if you develop any fevers. Discharge Data Discharge Date/Time-TO BE ENTERED AT DEPARTURE: 08/21/23 16:49 HPI General Date/Time Provider Initiated Documentation: 08/21/23 12:43 . HPI Narrative: MDM This is an overall well-appearing normothermic and not tachycardic 68-year-old male with history of cirrhosis status post TIPS with abdominal tenderness and cholelithiasis for which patient will undergo repeat CT scan to assess for acute intra abdominal pathology. I considered SBP however in the absence of any fevers and any signs of peritonitis I did not feel that the patient require a paracentesis. No pain out of proportion to suggest necrotizing soft tissue infection. No right lower quadrant tenderness to suggest appendicitis. No diarrhea nor left lower quadrant tenderness to suggest diverticulitis. Patient has been tolerating p.o. without vomiting so my suspicion is low for SBO. No rash to abdomen to suggest zoster. Will check a lipase to assess for pancreatitis. Will complete bedside ultrasound to assess for acute cholecystitis. I considered ACS however the patient is not having chest pain or shortness of breath. Given no shortness of breath and vitals reassuring agai nst PE and I did not feel that the patient required a D-dimer. I considered ureterolithiasis as patient has a history of nephrolithiasis however given his pain has been ongoing for several weeks and he did not have ureterolithiasis on CT performed several days ago I did not feel that his presentation represented ureterolithiasis. No pulsatile mass to suggest ruptured AAA. No obvious hernias on exam though patient does have diastases recti. No reported testicular pain to suggest torsion so I do not feel that the patient requires an ultrasound. Will treat with famotidine in the event that there is a component of peptic ulcer disease. Will treat with ondansetron for nausea and for pain use hydromorphone. Given limited acetaminophen use I was not concerned for toxicity so I did not obtain an acetaminophen level. 2 PM Patient reportedly had difficult IV access. Using real-time ultrasound guidance I placed a 20-gauge IV in the right cephalic vein of the forearm. Prior to placement chlorhexidine was used to clean the area. A sterile probe cover was used. IV placement was confirmed via bubble study. Patient tolerated the procedure well. 2:30 PM CBC with mild thrombocytopenia similar to prior dated last week. No anemia. No leukocytosis. Comprehensive metabolic panel showing mild hyperbilirubinemia improved compared to prior dated last week. No acute LFT abnormalities. No FRANKY. No acute electrolyte abnormalities. Normal reassuring lipase. 5:20 PM Patient felt improved in the ED. I spoke with Dr. GARCIA from general surgery and asked him to review the patient's CT scan as radiology was concerned that there was some inflammation around the patient's duodenum. Dr. GARCIA felt that this was more likely duodenal inflammation secondary to peptic ulcer disease. Patient had no sign of perforation. Radiology did comment on the possibility of gallbladder wall edema. Patient's alkaline phosphatase was normal. He has mild hyperbilirubinemia from several days ago had nearly resolved. He felt improved in the ED. Given that he is tolerating p.o. and has no leukocytosis I did not feel that he required hospitalization for his right upper quadrant ultrasound which is scheduled in 2 days. I did treat him with high-dose pantoprazole and Carafate which I prescribed. I gave him return indications including any worsening pain any vomiting that did not stop or any fevers. He understood his return indications and was discharged with empiric trial of expectant outpatient management. HPI This is a 68-year-old man status post remote TIPS procedure the setting of cirrhosis arriving to the emergency department via private vehicle in the setting of abdominal pain. Patient was seen 2 days ago for similar symptoms. He was given tramadol but his symptoms did not improve. He has been tolerating p.o. at home without vomiting. He is due for an outpatient right upper quadrant ultrasound in 2 days. He describes a 2-week sensation of pain in his right flank. He describes as a gnawing pain. He occasionally gets dry heaves. His pain does not radiate. He denies exacerbators and alleviators. No fevers no di arrhea. No dysuria nor frequency. No chest pain or shortness of breath. He took ibuprofen and subsequently switched to taking acetaminophen which he last took at 4:30 AM this morning. He denies routine tobacco, ethanol, and illicits. He denies rashes to abdomen. Exam General: Well-appearing in no acute distress speaking in complete sentences. Head: Normocephalic, atraumatic. Eye: Extraocular eye movements intact. No conjunctival injection. No scleral icterus. Ear, nose, mouth, throat: Grossly normal inspection. Normal voice, handling secretions normally. Neck: Trachea midline. Cardiovascular: Well-perfused distal extremities. Regular rate and rhythm. Respiratory: Nonlabored respiration. Clear lungs bilaterally. Gastrointestinal: Nondistended abdomen. Soft. Minimal right upper quadrant tenderness. No rebound. No guarding. No obvious hernias. Diastases recti. Musculoskeletal: No edema. Moving all 4 extremities spontaneously. Skin: Normal for age and race, grossly normal temperature and turgor. No acute rash. Neurologic: Alert and appropriate, no apparent acute deficits. Psychiatric: Mood and manner are appropriate. Grooming and personal hygiene are appropriate. Related Data Home Medications Medication Instructions Recorded Confirmed cholecalciferol (vitamin D3) 1,250 1,250 mcg PO QMONTH 11/16/19 08/19/23 mcg (50,000 unit) capsule [id number] acid 0.4 1 tab PO DAILY 11/16/19 08/19/23 mg-lycopene 300 mcg-lutein 250 mcg tablet (Centrum Silver) atorvastatin 20 mg tablet 20 mg PO DAILY 08/19/23 08/19/23 bimatoprost 0.01 % eye drops 1 drp ophthalmic (eye) DAILY 08/19/23 08/19/23 (Lumigan) canagliflozin 100 mg tablet 100 mg PO DAILY 08/19/23 08/19/23 (Invokana) lisinopril 10 mg tablet 10 mg PO DAILY 08/19/23 08/19/23 tramadol 50 mg tablet 50 mg PO BID PRN pain #6 tabs 08/19/23 ondansetron 4 mg disintegrating 4 mg PO BID 5 days #10 tabs 08/21/23 tablet pantoprazole 40 mg tablet,delayed 40 mg PO DAILY #30 tabs 08/21/23 release sucralfate 1 gram tablet (Carafate) 1 g PO BID 14 days #28 tabs 08/21/23 Previous Rx's Medication Instructions Recorded tramadol 50 mg tablet 50 mg PO BID PRN pain #6 tabs 08/19/23 ondansetron 4 mg disintegrating 4 mg PO BID 5 days #10 tabs 08/21/23 tablet pantoprazole 40 mg tablet,delayed 40 mg PO DAILY #30 tabs 08/21/23 release sucralfate 1 gram tablet (Carafate) 1 g PO BID 14 days #28 tabs 08/21/23 Allergies Allergy/AdvReac Type Severity Reaction Status Date / Time zolpidem [From Ambien] AdvReac Other (See Verified 08/19/23 13:54 Comment) General Stated Complaint: Abd Prob BAKARI: 3 Course Vital Signs Vital signs: Vital Signs Temperature 36.7 C 08/21/23 12:32 Pulse 62 08/21/23 12:32 Respiratory Rate 14 08/21/23 12:32 Blood Pressure 171/60 H 08/21/23 12:32 Pulse Oximetry 96 08/21/23 12:32 Temperature 36.7 C 08/21/23 12:32 Temperature Source Oral 08/21/23 12:32 Pulse 62 08/21/23 12:32 Respiratory Rate 14 08/21/23 12:32 Blood Pressure 171/60 H 08/21/23 12:32 Blood Pressure Position Sitting 08/21/23 12:32 Pulse Oximetry 96 08/21/23 12:32 Oxygen Delivery Method Room Air 08/21/23 12:32 Oxygen Flow Rate 0 08/21/23 12:32 Pain Level 9 08/21/23 12:32 Medical Decision Making Quality:SDOH Health Related Social Needs: No Data to Display PFSH All Active Problems (Updated 08/21/23 @ 15:36 by Torres Putnam MD) Abdominal pain, acute, right upper quadrant (Acute) Epigastric abdominal pain (Acute) Gastritis (Acute) Esophageal reflux (Chronic) Esophagitis (Acute) Left rotator cuff tear (Acute) Drug abuse (Chronic) Red blood cell antibody positive with compatible PRBC difficult to obtain (Acute) Anemia (Chronic) Hx of caloric malnutrition (Acute) Nausea & vomiting (Acute) Melena (Acute) Duodenal ulcer disease (Acute) Left inguinal hernia (Acute) Gallstones (Chronic) 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) Has ultrasound done every 6 months last done 01/09/20 Esophageal varices (Chronic) Hepatitis C (Chronic) Cirrhosis (Chronic) Medical History (Updated 08/21/23 @ 15:36 by Torres Putnam MD) Hx of non-insulin dependent diabetes mellitus Hx of pneumothorax History of rib fracture Hx of fracture of clavicle Scoliosis Hypertension Hepatic encephalopathy Pancytopenia Red blood cell antibody positive with compatible PRBC difficult to obtain History of GI bleed variceal Surgical History (Updated 01/23/20 @ 10:50 by Nadeen Davalos RN) Hx of basal cell carcinoma excision Hx of Achilles tendon repair History of esophagogastroduodenoscopy (EGD) (~01/16/20) multiple Previous back surgery S/P hernia repair S/P shoulder surgery Family History Mother Breast cancer Sister Breast cancer Heart disease Diabetes Sister Breast cancer Hypertension Brother Cancer leukemia Brother Heart disease Diabetes Hypertension Maternal Grandmother Heart disease Father Diabetes Hypertension Social History Smoking/Tobacco Use Status: Never Smoking risk assessment performed?: Yes Alcohol Intake: former Year quit: 2019 Drug use: Current Sobriety Substance use type: does not use and former substance user Details: 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 Current gender identity: male Do you feel safe at home: Yes Do you feel safe in your relationship?: Yes POCUS Exam (ED) Limited Gallbladder Exam DATE OF EXAM: 08/21/23 TIME OF EXAM: 14:34 PROVIDER THAT PERFORMED THE STUDY: Torres Putnam IS THIS A REPEAT EXAM DURING THIS ENCOUNTER: No REASON FOR VISIT: Abdominal pain VISUALIZED STRUCTURES: Gallbladder PERTINENT FINDINGS/IMPRESSION: Cholelithiasis DIFFERENTIAL DIAGNOSIS: Patient had cholelithiasis. He did have a sonographic Gonsalez's. I was unable to assess for pericolic cystic fluid and gallbladder wall thickening as patient was unable to tolerate limited bedside ultrasound. Did not tolerate exam
--- NOTE | 2023-08-21 13:30 | DI.CT_ITS ---
Exam(s) CT ABDOMEN PELVIS W EXAM: CT ABDOMEN PELVIS W CLINICAL HISTORY: Epigastric and right upper quadrant pain TECHNIQUE: Imaging Protocol: Axial computed tomography images with coronal and sagittal reformatted images were created and reviewed. CONTRAST MATERIAL: Intravenous: Omnipaque 350 Contrast volume:99 mL Oral: No COMPARISON: CT CT THORAX ABD/PEL CTA from 08/19/2023 FINDINGS: ABDOMEN: Lung Bases: There is a small infiltrate in the left lung base. This may represent atelectasis, pneum onia or scarring. Liver: There is a TIPS in place. The liver has a nodular component suggesting hepatic cirrhosis. Th ere are few tiny hypodensities in the liver. They are too small for further characterization but lik nasreen reflect small cysts. No measurable mass. Portal, Superior Mesenteric, and Splenic Veins: Unremarkable. Gallbladder and Biliary Tract: Cholelithiasis. There is no biliary ductal dilatation. There is mild thickening of and enhancement of the wall of the gallbladder. Mild stranding is seen around the gal lbladder. Pancreas: The pancreas is unchanged compared to the prior examination. No findings to suggest acute pancreatitis. There again seen metal artifact in the head of the pancreas which likely reflect previ ous vascular coiling. Spleen: The spleen is enlarged. Adrenals: No masses seen. Kidneys: Normal size, contour and axis. There is left nephrolithiasis. No obstructive uropathy. Lane ateral simple renal cysts are seen. No follow-up is recommended. Abdominal Aorta: Abdominal portion non-dilated. Atherosclerotic calcification is present. Bowel: There is a moderate amount of stool in the colon. No evidence of bowel obstruction or bowel w all thickening. There was mild inflammatory stranding seen around the proximal duodenum. No evidenc e of appendicitis. The stomach is incompletely distended limiting evaluation. Peritoneal Cavity: A trace amount of free fluid in the pelvis. No free air. Lymph Nodes: Within normal limits. Bones: Within normal limits for the patient's age. There is a marked left convex lumbar scoliosis. Soft Tissues: Unremarkable. PELVIS: Bladder: Symmetric distention, no gross wall thickening. Reproductive Organs: Prostate gland is mildly enlarged. Lymph Nodes: Within normal limits. Bones: Within normal limits for the patient's age. IMPRESSION: 1. Mild inflammatory stranding seen around the proximal duodenum pancreatic head and gallbladder. Th ere is enhancement and thickening of the wall of the gallbladder with gallstones present. This may r epresent acute cholecystitis. Duodenitis or possible pancreatitis should also be considered. Please correlate clinically. 2. Small infiltrate in the left lower lobe which may represent atelectasis, scarring or pneumonia. P lease correlate clinically. 3. Prior TIPS, hepatic cirrhosis, splenomegaly and a trace amount of ascites in the pelvis. RADIATION DOSE DELIVERED: 872.06mGy.cm Total DLP DATA REPOSITORY: All CT scans at this facility are submitted to the National Radiology Data Registry (NRDR) Dose Index Registry (DIR) with the [employer] (A[employer]). RADIATION OPTIMIZATION: All CT scans at this facility use at least one of these dose optimization te chniques: automated exposure control; mA and/or kV adjustment per patient size (includes targeted exa ms where dose is matched to clinical indication); or iterative reconstruction.
[2023-08-21 13:53] LABS: Abs Immature Grans 0.01 10^3/uL (0.0-0.06); Absolute Basophil Count 0.03 10^3/uL (0.0-0.2); Absolute Eosinophil Count 0.18 10^3/uL (0.0-0.7); Absolute Lymphocyte Count 0.96 10^3/uL (1.2-3.4); Absolute Monocyte Count 0.38 10^3/uL (0.1-0.8); Absolute Neutrophil Count 2.94 10^3/uL (1.2-6.7); Basophils % 0.7 %; HCT 40.4 % (40.0-50.0); HGB 14.4 g/dL (13.5-17.5); Immature Grans % 0.2 %; Lymphocytes % 21.3 %; MCHC 35.6 % (32.0-36.0); MCV 95 fL (80-95); MPV 8.7 fL (8.0-11.0); Monocytes % 8.4 %; Neutrophils % 65.4 %; Platelet Count 108 10^3/uL (130-400); RBC 4.24 10^6/uL (4.36-5.78); RDW 12.5 % (11.8-14.1); RDW-SD 43.3 fL
[2023-08-21] MEDS: Famotidine 20 MG/2 ML VIAL 40 MG IVP (13:53)
[2023-08-21] MEDS: HYDROmorphone 2 MG/ML SYR 0.5 MG IVP ×2 (13:53→16:42)
[2023-08-21] MEDS: Ondansetron 4 MG/2 ML VIAL IVP (13:53)
[2023-08-21 14:14] LABS: ALT 32 U/L (16-63); AST 28 U/L (15-37); Albumin 3.5 g/dL (3.4-5.0); Alkaline Phosphatase 88 U/L (46-116); Anion Gap 9.8 mmol/L (3-11); BUN 14 mg/dL (7-18); Bilirubin, Total 1.1 mg/dL (0.2-1.0); CO2 28.2 mmol/L (21.0-32.0); CREATININE 0.9 mg/dL (0.70-1.30); Calcium 8.7 mg/dL (8.5-10.1); Chloride 103 mmol/L (98-107); Estimated GFR 91.88 (mL/min/1.73m2); Glucose 198 mg/dL (74-106); Lipase 52 U/L (16-77); Potassium 4.1 mmol/L (3.5-5.1); Sodium 141 mmol/L (136-145)
[2023-08-21] MEDS: Normal Saline - Diluent 50 ML VIAL IJ (14:24)
[2023-08-21] MEDS: Omnipaque 350 MG/ML 100 ML BTL IJ (14:25)
[2023-08-21] MEDS: Normal Saline Flush 10 ML SYR IVP (14:26)
--- NOTE | 2023-08-21 15:42 | DI.VRAD_ITS ---
PROCEDURE INFORMATION: Exam: CT Abdomen And Pelvis With Contrast Exam date and time: 08/21/2023 2:28 PM Age: 68 years old Clinical indication: Other: Epigastric and right upper quadrant pain; Prior surgery; Surgery date: 6+ months; Surgery type: Yips surgery on liver 2017. Hernia TECHNIQUE: Imaging protocol: Computed tomography of the abdomen and pelvis with contrast. Contrast material: OMNIPAQUE 350; Contrast volume: 100 ml; Contrast route: INTRAVENOUS (IV); COMPARISON: CT THORAX ABD/PEL CTA 08/19/2023 1:56 PM FINDINGS: Liver: No cysts or masses. There is a TIPS that has contrast throughout its course indicating patency. There still dilatation of the splenic vein in the portal vein into the liver. Gallbladder and bile ducts: Dependent calculi. The wall has an irregular appearance slightly edema that may be related to inflammation from the duodenal area. Pancreas: Metallic densities lateral to the pancreatic head likely vascular coils. This obscures the pancreatic head. Portions of the pancreatic head lucencies in the duodenitis of the adjacent. The body and tail of the pancreas are normal. Spleen: The spleen is normal. Adrenal glands: There is diffuse bilateral nonspecific adrenal enlargement, most likely related to acute illness. Kidneys and ureters: No hydronephrosis or hydroureter. There nonobstructing left renal calculi. There is scarring of the superior portion of the left kidney. There are simple appearing renal cysts. No follow up imaging is recommended. Stomach and bowel: Unremarkable. No obstruction. No mucosal thickening. Appendix: The appendix is not identified, but there are no inflammatory changes in its expected region. Intraperitoneal space: Unremarkable. No free air. No significant fluid collection. Vasculature: Unremarkable. No abdominal aortic aneurysm. Lymph nodes: Unremarkable. No enlarged lymph nodes. Urinary bladder: Unremarkable as visualized. Reproductive: The prostate demonstrates mild nonspecific enlargement. The seminal vesicles are normal. Bones/joints: Severe levoscoliosis of the lumbar spine. There has been removal of the spinous processes and ankylosis of the posterior elements. No acute fracture. Soft tissues: Unremarkable. IMPRESSION: 1. Findings consistent with inflammation of the second portion of the duodenal whether this is due to groove pancreatitis or duodenitis cannot be determined. There is likely inflammation extending along the biliary system with slight edema of the gallbladder wall. Gallstones have been present since at least 11/02/2019. 2. The TIPS appears patent. 3. Uncomplicated left nephrolithiasis. Dictated and Authenticated by: Javier Walsh MD. Ordering:VITO Macdonald MD
[2023-08-21 16:47] VITALS: BP 149/63; PULSE 58; RESP 18; O2SAT 98
== END 2023-08-21 16:49 | disposition home or self-care (01) ==
PROVIDERS: Emergency Provider Emergency Medicine
DX: R10.11 Right upper quadrant pain (principal); K80.20 Calculus of gallbladder without cholecystitis without obstruction; D69.6 Thrombocytopenia, unspecified; E11.9 Type 2 diabetes mellitus without complications; I10 Essential (primary) hypertension; Z79.84 Long term (current) use of oral hypoglycemic drugs
CPT/HCPCS: 36573; 80053; 83690; 96374; 96376; 99285; 74177; 85025; 99284; J1170; J2405; J3490

== ENCOUNTER 2023-08-22 09:07 | Inpatient (IN) | payer OTHER, SELFPAY ==
[2023-08-22] VITALS (7 sets, daily range): BP systolic 126–169; BP diastolic 60–79; PULSE 49–66; RESP 15–20; TEMP 36.9–37.2; O2SAT 92–100
--- NOTE | 2023-08-22 09:50 | ED.GENADUL_ITS ---
Discharge Plan Disposition Patient Disposition: Admit to [facility] Condition: Serious Discharge Details Chief Complaint: Abd Prob Clinical Impression: Abdominal pain, RUQ, Cholelithiasis Primary Care Provider: Unknown,Unknown ED Provider: Ken Parnell Home Meds and New Rx's Prescriptions: No Action Centrum Silver 0.4-300-250 mg-mcg-mcg tablet 1 tab PO DAILY atorvastatin 20 mg tablet 20 mg PO DAILY Invokana 100 mg tablet 100 mg PO DAILY lisinopril 10 mg tablet 10 mg PO DAILY Lumigan 0.01 % drops 1 drp ophthalmic (eye) DAILY tramadol 50 mg tablet 50 mg PO BID PRN (Reason: pain) Qty: 6 0RF Patient Comments: pt states doesnt work Rx Instructions: Take 1 tablet twice daily as needed with food for moderate to severe pain pantoprazole 40 mg tablet,delayed release (DR/EC) 40 mg PO DAILY Qty: 30 0RF sucralfate [Carafate] 1 gram tablet 1 g PO BID 14 Days Qty: 28 0RF ondansetron 4 mg tablet,disintegrating 4 mg PO BID 5 Days Qty: 10 0RF HPI General Date/Time Provider Initiated Documentation: 08/22/23 09:26 . Related Data Home Medications Medication Instructions Recorded Confirmed dceacfch-bdf-[id number] acid 0.4 1 tab PO DAILY 11/16/19 08/22/23 mg-lycopene 300 mcg-lutein 250 mcg tablet (Centrum Silver) atorvastatin 20 mg tablet 20 mg PO DAILY 08/19/23 08/22/23 bimatoprost 0.01 % eye drops 1 drp ophthalmic (eye) DAILY 08/19/23 08/22/23 (Lumigan) canagliflozin 100 mg tablet 100 mg PO DAILY 08/19/23 08/22/23 (Invokana) lisinopril 10 mg tablet 10 mg PO DAILY 08/19/23 08/22/23 tramadol 50 mg tablet 50 mg PO BID PRN pain #6 tabs 08/19/23 08/22/23 ondansetron 4 mg disintegrating 4 mg PO BID 5 days #10 tabs 08/21/23 08/22/23 tablet pantoprazole 40 mg tablet,delayed 40 mg PO DAILY #30 tabs 08/21/23 08/22/23 release sucralfate 1 gram tablet (Carafate) 1 g PO BID 14 days #28 tabs 08/21/23 08/22/23 Previous Rx's Medication Instructions Recorded tramadol 50 mg tablet 50 mg PO BID PRN pain #6 tabs 08/19/23 ondansetron 4 mg disintegrating 4 mg PO BID 5 days #10 tabs 08/21/23 tablet pantoprazole 40 mg tablet,delayed 40 mg PO DAILY #30 tabs 08/21/23 release sucralfate 1 gram tablet (Carafate) 1 g PO BID 14 days #28 tabs 08/21/23 Allergies Allergy/AdvReac Type Severity Reaction Status Date / Time zolpidem [From Ambien] AdvReac Other (See Verified 08/22/23 11:32 Comment) General Stated Complaint: Abd Prob BAKARI: 3 Course Vital Signs Vital signs: Vital Signs Temperature 37.2 C 08/22/23 09:28 Pulse 66 08/22/23 09:28 Respiratory Rate 20 08/22/23 09:28 Blood Pressure 151/66 H 08/22/23 09:28 Pulse Oximetry 98 08/22/23 09:28 Temperature 37.2 C 08/22/23 09:28 Temperature Source Skin 08/22/23 09:28 Pulse 66 08/22/23 09:28 Respiratory Rate 20 08/22/23 09:28 Blood Pressure 151/66 H 08/22/23 09:28 Blood Pressure Position Sitting 08/22/23 09:28 Pulse Oximetry 98 08/22/23 09:28 Oxygen Delivery Method Room Air 08/22/23 09:28 Oxygen Flow Rate 0 08/22/23 09:28 Pain Level 9 08/22/23 09:28 Medical Decision Making 1030 -- 68-year-old male with history of cirrhosis status post TIPS procedure, hepatitis C, seen here on 08/19/2023 and 08/21/2023 for abdominal pain, returns today for persistent pain and unable to fill his prescription. Patient has focal tenderness right upper quadrant with positive Gonsalez sign. I reviewed past medical record: CT abdomen pelvis 08/21/2023 was interpreted by radiology:1. Mild inflammatory stranding seen around the proximal duodenum pancreatic head and gallbladder. There is enhancement and thickening of the wall of the gallbladder with gallstones present. This may represent acute cholecystitis. Duodenitis or possible pancreatitis should also be considered. Please correlate clinically. 2. Small infiltrate in the left lower lobe which may represent atelectasis, scarring or pneumonia. Please correlate clinically. 3. Prior TIPS, hepatic cirrhosis, splenomegaly and a trace amount of ascites in the pelvis. CTA chest abdomen pelvis 08/19/23 was interpreted by radiology: 1. No evidence of pulmonary embolism or aortic dissection.. 2. No acute abdominal or pelvic process. Bilateral nonobstructing renal calculi. TIPS in place. 1100--bedside [id number] ultrasound was performed by me, limited right upper quadrant, gallstones present with contracted gallbladder, positive sonographic Gonsalez's. Will plan for formal right upper quadrant ultrasound today. I called and spoke with on-call surgeon Dr. Morillo, discussed ED presentation course, he will evaluate the patient. Dilaudid 1 mg IV for pain. --Abdominal ultrasound interpreted by radiology: 1. Examination limited due to overlying bowel gas. There is limited visualization of the gallbladder and pancreas and kidney. 2. No obvious stones are seen in the gallbladder. There is no biliary ductal dilatation. 3. Heterogeneous echotexture of the liver consistent with hepatic cirrhosis. The patient has a TIPS in place. 1330 --Dr. Morillo to admit the patient. Care transition to inpatient service. Lab Data Lab results reviewed: Yes I reviewed the patient's lab results. Labs: Laboratory Tests Range/Units 08/22/23 11:10 WBC (4.4-10.8) 10^3/uL 3.71 L RBC (4.36-5.78) 10^6/uL 4.14 L Hgb (13.5-17.5) g/dL 14.2 Hct (40.0-50.0) % 39.3 L MCV (80-95) fL 95 MCH (27.0-33.0) pg 34.3 H MCHC (32.0-36.0) % 36.1 H RDW (11.8-14.1) % 12.8 Plt Count (130-400) 10^3/uL 106 L MPV (8.0-11.0) fL 8.9 Immature Gran % % 0.3 Neutrophils % % 63.9 Lymphocytes % % 21.0 Monocytes % % 9.4 Eosinophils % % 4.6 Basophils % % 0.8 Nucleated RBC % (0.0-0.3) % 0.0 Absolute Neutrophils (1.2-6.7) 10^3/uL 2.37 Absolute Lymphocytes (1.2-3.4) 10^3/uL 0.78 L Absolute Monocytes (0.1-0.8) 10^3/uL 0.35 Absolute Eosinophils (0.0-0.7) 10^3/uL 0.17 Absolute Basophils (0.0-0.2) 10^3/uL 0.03 Sodium (136-145) mmol/L 145 Potassium (3.5-5.1) mmol/L 4.2 Chloride (98-107) mmol/L 109 H Carbon Dioxide (21.0-32.0) mmol/L 29.9 Anion Gap (3-11) mmol/L 6.1 BUN (7-18) mg/dL 13 Creatinine (0.70-1.30) mg/dL 0.8 Est GFR (CKD-EPI 2020) (mL/min/1.73m2) 95.21 Glucose (74-106) mg/dL 121 H Calcium (8.5-10.1) mg/dL 9.2 Total Bilirubin (0.2-1.0) mg/dL 1.3 H AST (15-37) U/L 25 ALT (16-63) U/L 33 Alkaline Phosphatase (46-116) U/L 80 Total Protein (6.4-8.2) g/dL 6.7 Albumin (3.4-5.0) g/dL 3.3 L Lipase (16-77) U/L 34 Quality:SDAL Health Related Social Needs: No Data to Display 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) Has ultrasound done every 6 months last done 01/09/20 Esophageal varices (Chronic) Hepatitis C (Chronic) Cirrhosis (Chronic) Medical History (Updated 08/22/23 @ 13:36 by Ken Parnell MD) Hx of non-insulin dependent diabetes mellitus Hx of pneumothorax History of rib fracture Hx of fracture of clavicle Scoliosis Hypertension Hepatic encephalopathy Pancytopenia Red blood cell antibody positive with compatible PRBC difficult to obtain History of GI bleed variceal Surgical History (Updated 01/23/20 @ 10:50 by Nadeen Davalos RN) Hx of basal cell carcinoma excision Hx of Achilles tendon repair History of esophagogastroduodenoscopy (EGD) (~01/16/20) multiple Previous back surgery S/P hernia repair S/P shoulder surgery Family History Mother Breast cancer Sister Breast cancer Heart disease Diabetes Sister Breast cancer Hypertension Brother Cancer leukemia Brother Heart disease Diabetes Hypertension Maternal Grandmother Heart disease Father Diabetes Hypertension Social History Smoking/Tobacco Use Status: Never Smoking risk assessment performed?: Yes Alcohol Intake: former Year quit: 2018 Drug use: Current Sobriety Substance use type: does not use and former substance user Details: 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 Housing: apartment Current gender identity: male Do you feel safe at home: Yes Do you feel safe in your relationship?: Yes
--- NOTE | 2023-08-22 10:00 | DI.US_ITS ---
Exam(s) US ABDOMEN LIMITED EXAM: US ABDOMEN LIMITED CLINICAL HISTORY: abd pain ruq, limited TECHNIQUE: Ultrasound abdomen performed using standard protocol. COMPARISON: CT CT ABDOMEN PELVIS W from 08/21/2023 FINDINGS: PANCREAS: The pancreas could not be adequately evaluated due to overlying bowel gas. LIVER: There is heterogeneous echotexture with a lobulated contour consistent with hepatic cirrhosis. Hepatopetal flow in the Portal Vein. The liver measures in 13.5 cm length. The patient has a TIPS i n place. GALLBLADDER:No stones are seen in the gallbladder. No evidence of wall thickening. No pericholecysti c fluid identified. BILIARY SYSTEM: Common bile duct measures < 7 mm. No intrahepatic biliary ductal dilation. BALDWIN'S SIGN: Negative. RIGHT KIDNEY: Kidney is normal in size. No evidence of renal calculi. No evidence of hydronephrosis. No renal mass or cyst identified. ASCITES: None seen. IMPRESSION: 1. Examination limited due to overlying bowel gas. There is limited visualization of the gallbladder and pancreas and kidney. 2. No obvious stones are seen in the gallbladder. There is no biliary ductal dilatation. 3. Heterogeneous echotexture of the liver consistent with hepatic cirrhosis. The patient has a TIPS in place. DATA REPOSITORY:
[2023-08-22] MEDS: HYDROmorphone 2 MG/ML SYR 1 MG IVP (11:11)
[2023-08-22 11:22] LABS: Abs Immature Grans 0.01 10^3/uL (0.0-0.06); Absolute Basophil Count 0.03 10^3/uL (0.0-0.2); Absolute Eosinophil Count 0.17 10^3/uL (0.0-0.7); Absolute Lymphocyte Count 0.78 10^3/uL (1.2-3.4); Absolute Monocyte Count 0.35 10^3/uL (0.1-0.8); Absolute Neutrophil Count 2.37 10^3/uL (1.2-6.7); Basophils % 0.8 %; Eosinophils % 4.6 %; HCT 39.3 % (40.0-50.0); HGB 14.2 g/dL (13.5-17.5); Immature Grans % 0.3 %; MCH 34.3 pg (27.0-33.0); MCHC 36.1 % (32.0-36.0); MCV 95 fL (80-95); MPV 8.9 fL (8.0-11.0); Monocytes % 9.4 %; Neutrophils % 63.9 %; Platelet Count 106 10^3/uL (130-400); RBC 4.14 10^6/uL (4.36-5.78); RDW 12.8 % (11.8-14.1); RDW-SD 44.3 fL; WBC 3.71 10^3/uL (4.4-10.8)
[2023-08-22 11:39] LABS: ALT 33 U/L (16-63); AST 25 U/L (15-37); Albumin 3.3 g/dL (3.4-5.0); Alkaline Phosphatase 80 U/L (46-116); Anion Gap 6.1 mmol/L (3-11); BUN 13 mg/dL (7-18); Bilirubin, Total 1.3 mg/dL (0.2-1.0); CO2 29.9 mmol/L (21.0-32.0); CREATININE 0.8 mg/dL (0.70-1.30); Calcium 9.2 mg/dL (8.5-10.1); Chloride 109 mmol/L (98-107); Estimated GFR 95.21 (mL/min/1.73m2); Glucose 121 mg/dL (74-106); Lipase 34 U/L (16-77); Potassium 4.2 mmol/L (3.5-5.1); Sodium 145 mmol/L (136-145); Total Protein 6.7 g/dL (6.4-8.2)
--- NOTE | 2023-08-22 13:15 | HPE_ITS ---
Date of service: 08/22/23 Time of Service: 13:15 Assessment and Plan Assessment and plan (1) Abdominal pain, RUQ: Status: Acute Assessment and plan: It certainly looks like he has some gallstones on his previous CT scan, although his ultrasound today shows no evidence of gallstones or acute cholecystitis. Given the chronicity of his symptoms, I think there would be some findings on the ultrasound today if that were the case. Furthermore, with his cirrhosis and TIPS, I would consider him fairly high risk for a cholecystectomy unless it is absolutely warranted. His CT scan also shows a fair amount of debris in the duodenum, and suggest the possibility of a duodenal diverticula. I supposed duodenal diverticulitis or other forms of peptic ulcer disease are still within the differential here. He has not really had any chance to start his proton pump inhibitor therapy, so at the very least we can give him a dose of that intravenous and see how he feels. If his symptoms do not improve in the next day or so, or if any of his labs show any other significant abnormalities, then I suppose a HIDA scan would be the next best test here. I can also check H. pylori to rule that out as a source of gastritis. History of Present Illness History of Present Illness Chief Complaint: Abdominal pain Narrative: Alonzo is 68 years old. He came to the emergency department on the with a chief complaint of upper abdominal pain. It sounds like it was mostly on the right side, but maybe a little bit towards the mid epigastrium as well. He thinks it had probably been going on for about 2 weeks. He says it is a little worse when he lays on his right side. He denies any relationship with food, or any other relieving factors. In the emergency department on the , he underwent a CT scan of the abdomen and pelvis that seemed consistent with gallstones. There was also some inflammation around the duodenum, and some clinical features concerning for gastritis. He was started on proton pump inhibitors, and discharged home. Pain continued, and he came back in yesterday with similar complaints. He was worked up, with no new findings, discharged home. He is back again today with the same complaints. He describes the pain as sharp and stabbing in nature. He has some associated nausea, but no vomiting. He denies any fevers at home. He has had no change in the character or timing of his bowel movements. He thinks the pain is a little bit worse with movement now. Past medical history is most significant for cirrhosis with bleeding complications that required coil embolization, and eventually TIPS. This may be related to hepatitis C that was treated. Past surgical history significant for an open umbilical hernia repair. Review of Systems Constitutional Constitutional: Denies body ache(s), Denies fever(s), Reports poor appetite and Denies weight loss Eyes Eyes: Reports system reviewed and no additional complaints, except as documented ENT Ears, Nose, Mouth, and Throat: Reports system reviewed and no additional complaints, except as documented Cardiovascular Cardiovascular: Denies chest pain and Denies dyspnea Respiratory Respiratory: Denies chest congestion, Reports cough and Denies dyspnea Gastrointestinal Gastrointestinal: Reports abdominal pain, Denies diarrhea, Reports nausea and Denies vomiting Genitourinary Genitourinary: Reports system reviewed and no additional complaints, except as documented Musculoskeletal Musculoskeletal: Reports system reviewed and no additional complaints, except as documented Neurologic Neurologic: Reports system reviewed and no additional complaints, except as documented Hematologic/Lymphatic Hematologic/Lymphatic: Denies easy bleeding and Denies easy bruising 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) Has ultrasound done every 6 months last done 01/09/20 Esophageal varices (Chronic) Hepatitis C (Chronic) Cirrhosis (Chronic) Medical History (Updated 08/22/23 @ 13:36 by Ken Parnell MD) Hx of non-insulin dependent diabetes mellitus Hx of pneumothorax History of rib fracture Hx of fracture of clavicle Scoliosis Hypertension Hepatic encephalopathy Pancytopenia Red blood cell antibody positive with compatible PRBC difficult to obtain History of GI bleed variceal Surgical History (Updated 01/23/20 @ 10:50 by Nadeen Davalos RN) Hx of basal cell carcinoma excision Hx of Achilles tendon repair History of esophagogastroduodenoscopy (EGD) (~01/16/20) multiple Previous back surgery S/P hernia repair S/P shoulder surgery Family History Mother Breast cancer Sister Breast cancer Heart disease Diabetes Sister Breast cancer Hypertension Brother Cancer leukemia Brother Heart disease Diabetes Hypertension Maternal Grandmother Heart disease Father Diabetes Hypertension Social History Smoking/Tobacco Use Status: Never Smoking risk assessment performed?: Yes Alcohol Intake: former Year quit: 2019 Drug use: Current Sobriety Substance use type: does not use and former substance user Details: 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 Housing: apartment Current gender identity: male Do you feel safe at home: Yes Do you feel safe in your relationship?: Yes Meds Allergies and Home Medications Allergies Allergy/AdvReac Type Severity Reaction Status Date / Time zolpidem [From Ambien] AdvReac Other (See Verified 08/22/23 11:32 Comment) Home Medications Medication Instructions Recorded Confirmed Type mvvgxlfp-yxf-qsekw acid 0.4 1 tab PO DAILY 11/16/19 08/22/23 History mg-lycopene 300 mcg-lutein 250 mcg tablet (Centrum Silver) atorvastatin 20 mg tablet 20 mg PO DAILY 08/19/23 08/22/23 History bimatoprost 0.01 % eye drops 1 drp ophthalmic (eye) DAILY 08/19/23 08/22/23 History (Lumigan) canagliflozin 100 mg tablet 100 mg PO DAILY 08/19/23 08/22/23 History (Invokana) lisinopril 10 mg tablet 10 mg PO DAILY 08/19/23 08/22/23 History tramadol 50 mg tablet 50 mg PO BID PRN pain #6 tabs 08/19/23 08/22/23 Rx ondansetron 4 mg disintegrating 4 mg PO BID 5 days #10 tabs 08/21/23 08/22/23 Rx tablet pantoprazole 40 mg tablet,delayed 40 mg PO DAILY #30 tabs 08/21/23 08/22/23 Rx release sucralfate 1 gram tablet (Carafate) 1 g PO BID 14 days #28 tabs 08/21/23 08/22/23 Rx Exam Const General: cooperative, healthy appearing and no acute distress Nutritional Appearance: overweight Orientation: alert, awake and oriented x3 HENMT Head: normal to inspection Eyes General: appearance normal, both eyes and all related structures Neck Neck: normal visual inspection, full ROM and no lymphadenopathy Resp Effort & Inspection: normal respiratory effort Auscultation: clear to auscultation bilaterally GI Inspection: normal to inspection and non-distended Palpation: soft and tender (Midepigastrium) Percussion: normal to percussion Auscultation: normal bowel sounds Other: He is got diastases recti Skin Nails: normal Results Imaging Abdomen CT scan report/results: report reviewed and image reviewed A bdominal ultrasound report/results: report reviewed and image reviewed Labs 08/22/23 11:10 08/22/23 11:10 Labs: Laboratory Results - last 24 hr 08/22/23 11:10 WBC 3.71 L RBC 4.14 L Hgb 14.2 Hct 39.3 L MCV 95 MCH 34.3 H MCHC 36.1 H RDW 12.8 Plt Count 106 L MPV 8.9 Immature Gran % 0.3 Neutrophils % 63.9 Lymphocytes % 21.0 Monocytes % 9.4 Eosinophils % 4.6 Basophils % 0.8 Nucleated RBC % 0.0 Absolute Neutrophils 2.37 Absolute Lymphocytes 0.78 L Absolute Monocytes 0.35 Absolute Eosinophils 0.17 Absolute Basophils 0.03 Sodium 145 Potassium 4.2 Chloride 109 H Carbon Dioxide 29.9 Anion Gap 6.1 BUN 13 Creatinine 0.8 Est GFR (CKD-EPI 2020) 95.21 Glucose 121 H Calcium 9.2 Total Bilirubin 1.3 H AST 25 ALT 33 Alkaline Phosphatase 80 Total Protein 6.7 Albumin 3.3 L Lipase 34 Last Vital Signs Temp 99 F 08/22/23 09:28 Pulse 63 08/22/23 13:07 Resp 16 08/22/23 13:07 BP 154/66 H 08/22/23 13:07 Pulse Ox 99 08/22/23 13:07 Time Spent Time spent with Patient: <40 minutes Time was spent: preparing to see the patient(eg.review tests), ordering medications,tests, procedures, referring, communicating with other health patient care technician instructor, indepentently interpreting results and counseling the patient
[2023-08-22] MEDS: Normal Saline 10 ML VIAL IJ (15:23)
[2023-08-22] MEDS: Pantoprazole 40 MG VIAL IVP (15:23)
[2023-08-22] MEDS: Normal Saline Flush 10 ML SYR IVP ×3 (15:24→19:45)
[2023-08-22] MEDS: MORPHine 2 MG/ML SYR IVP ×2 (15:24→17:11)
[2023-08-22] MEDS: HYDROmorphone 2 MG/ML SYR 0.5 MG IVP (19:43)
[2023-08-22] MEDS: Sucralfate 1 GM TAB PO (19:44)
[2023-08-22] MEDS: Polyethylene Glycol 3350 17 GM PACKET PO (22:01)
--- NOTE | 2023-08-23 | DI.NM_ITS ---
Exam(s) NM HEPATOBILIARY SCAN GRP EXAM: NM HEPATOBILIARY SCAN GRP CLINICAL HISTORY: ? cholecystitis,ruq abd pain,h/o cirrhosis and tips. TECHNIQUE: Injected dose: 5 mCi Tc-99 mebrofenin Initial dynamic images: 60 minutes Post-Gallbladder fillin.02 mcg/kg CCK intravenously over a 15min infusion. Addition images: 20 minute dynamic insure demonstrated. COMPARISON: Recent ultrasound reviewed. Recent CT scan reviewed. FINDINGS: There is normal uptake and excretion of radiopharmaceutical by the liver. Activity seen within the g allbladder lumen starting at 18 minutes post injection. In response to fatty meal a normal gallbladder ejection fraction of 90 percent was demonstrated IMPRESSION: 1. No evidence of obstruction of the cystic duct. 2. Normal gallbladder ejection fraction demonstrated.
[2023-08-23] MEDS: Normal Saline Flush 10 ML SYR IVP ×4 (01:02→20:32)
[2023-08-23] MEDS: HYDROmorphone 2 MG/ML SYR 0.5 MG IVP ×4 (01:02→22:08)
[2023-08-23 01:37] VITALS: PULSE 55; RESP 15; O2SAT 95
[2023-08-23 07:19] LABS: HCT 37.8 % (40.0-50.0); HGB 13.2 g/dL (13.5-17.5); MCH 33.7 pg (27.0-33.0); MCHC 34.9 % (32.0-36.0); MCV 96 fL (80-95); MPV 8.5 fL (8.0-11.0); Platelet Count 105 10^3/uL (130-400); RBC 3.92 10^6/uL (4.36-5.78); RDW 12.6 % (11.8-14.1); WBC 2.77 10^3/uL (4.4-10.8)
[2023-08-23 07:25] VITALS: BP 133/59; PULSE 54; RESP 18; TEMP 36.3; O2SAT 98
[2023-08-23 07:34] LABS: ALT 28 U/L (16-63); AST 26 U/L (15-37); Albumin 3.1 g/dL (3.4-5.0); Alkaline Phosphatase 75 U/L (46-116); Bilirubin, Direct 0.4 mg/dL (0.0-0.2); Bilirubin, Total 1.5 mg/dL (0.2-1.0); Total Protein 6.2 g/dL (6.4-8.2)
--- NOTE | 2023-08-23 09:07 | INITIAL_ITS ---
Date of service: 08/23/23 Time of Service: 09:07 Care Management Initial Assmt Initial Assessment REASON FOR HOSPITALIZATION:: Gastritis PREVIOUS FUNCTIONAL STATUS/SOCIAL/FAMILY SUPPORTS:: Alonzo has presented to the [facility] ED multiple times with upper abdominal pain-sharp and stabbing with associated nausea. Alonzo lives alone in an apartment in [facility]. He does not drive but is independent with his ADLs at baseline. He shares that his support system consists of lots of friends in the community. CURRENT FUNCTIONAL STATUS:: Awaiting HIDA scan and labs, Alonzo continues to report RUQ pain and remains uncomfortable, Surgeon encouraging Alonzo get out of bed, ambulate and get up to sit in his chair. Awaiting stool sample as well, Alonzo reports not BM in days, he remains NPO, CM continues to follow. ADVANCE DIRECTIVES:: On file, Ernesto as agent, Mandy as alternate. Has patient been provided with info about the portal/API?: Yes Did the patient sign up for the portal?: Yes CODE STATUS:: Full Code INSURANCE COVERAGE / FINANCIAL ISSUES:: [employer] CURRENT HOME/COMMUNITY SERVICES/EQUIPMENT:: None, currently. PRIMARY CARE PHYSICIAN:: George Lou-requested ACCESS update demographics POTENTIAL DISCHARGE NEEDS:: Follow up appointments, Surgical services, PCP PATIENT/FAMILY EDUCATION NEEDS:: Review discharge instructions, discuss Ask Me Three. ANTICIPATED BARRIERS TO DISCHARGE:: None identified. TRANSPORTATION:: Via private vehicle. PLAN:: Dong will likely be discharged home with no new services. He will follow up with his PCP and discharge plan of care. He will transport with friends via private vehicle. CM will continue to support Dong and assess for ongoing discharge needs. 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) Has ultrasound done every 6 months last done 01/09/20 Esophageal varices (Chronic) Hepatitis C (Chronic) Cirrhosis (Chronic) Medical History (Updated 08/22/23 @ 13:36 by Ken Parnell MD) Hx of non-insulin dependent diabetes mellitus Hx of pneumothorax History of rib fracture Hx of fracture of clavicle Scoliosis Hypertension Hepatic encephalopathy Pancytopenia Red blood cell antibody positive with compatible PRBC difficult to obtain History of GI bleed variceal Surgical History (Updated 01/23/20 @ 10:50 by Nadeen Davalos RN) Hx of basal cell carcinoma excision Hx of Achilles tendon repair History of esophagogastroduodenoscopy (EGD) (~01/16/20) multiple Previous back surgery S/P hernia repair S/P shoulder surgery Family History Mother Breast cancer Sister Breast cancer Heart disease Diabetes Sister Breast cancer Hypertension Brother Cancer leukemia Brother Heart disease Diabetes Hypertension Maternal Grandmother Heart disease Father Diabetes Hypertension Social History Smoking/Tobacco Use Status: Never Smoking risk assessment performed?: Yes Alcohol Intake: former Year quit: 2019 Drug use: Current Sobriety Substance use type: does not use and former substance user Details: 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 Housing: house Current gender identity: male Do you feel safe at home: Yes Do you feel safe in your relationship?: Yes SDOH(Care Management) Screening Will the Patient Participate in the Screening?: Yes Do you worry about having a steady place to live?: no In the past 12 months, have you had to go without electric, gas, oil or water in your home?: no Have you or anyone in your house had to go without enough food to eat?: no Has lack of transportation kept you from medical appointments or from doing things needed for daily living?: no Has anyone in your support network made you feel unsafe for any reason?: no
--- NOTE | 2023-08-23 09:28 | W.PM.PROGNOT ---
Date of Service Date of service: 08/23/23 Time of Service: 09:28 Assessment and Plan Assessment and plan (1) Abdominal pain, RUQ: Status: Acute Assessment and plan: Awaiting BM for H. Pylori testing HIDA scan planned for today Continue with pain control Continue NPO PPI Encouraged activity OOB, ambulation and sitting in the chair. Awaiting HIDA scan and lab results Subjective Subjective Interval history since last seen: Patient reports he continues to have RUQ pain. His nausea has improved with medication however he continues to be very uncomfortable. He also reports that he has not had BM in a couple days. Exam Const General: cooperative Orientation: alert and oriented x3 Resp Effort & Inspection: normal respiratory effort, no audible wheezes and no cough GI Inspection: distended Palpation: soft, guarding and tender in the RUQ Objective Last Vital Signs Temp 36.3 C L 08/23/23 07:25 Pulse 54 L 08/23/23 07:25 Resp 18 08/23/23 07:25 BP 133/59 L 08/23/23 07:25 Pulse Ox 98 08/23/23 07:25 Laboratory Results - last 24 hr 08/22/23 08/23/23 11:10 06:25 WBC 3.71 L 2.77 L RBC 4.14 L 3.92 L Hgb 14.2 13.2 L Hct 39.3 L 37.8 L MCV 95 96 H MCH 34.3 H 33.7 H MCHC 36.1 H 34.9 RDW 12.8 12.6 Plt Count 106 L 105 L MPV 8.9 8.5 Immature Gran % 0.3 Neutrophils % 63.9 Lymphocytes % 21.0 Monocytes % 9.4 Eosinophils % 4.6 Basophils % 0.8 Nucleated RBC % 0.0 Absolute Neutrophils 2.37 Absolute Lymphocytes 0.78 L Absolute Monocytes 0.35 Absolute Eosinophils 0.17 Absolute Basophils 0.03 Sodium 145 Potassium 4.2 Chloride 109 H Carbon Dioxide 29.9 Anion Gap 6.1 BUN 13 Creatinine 0.8 Est GFR (CKD-EPI 2020) 95.21 Glucose 121 H Calcium 9.2 Total Bilirubin 1.3 H 1.5 H Conjugated Bilirubin 0.4 H AST 25 26 ALT 33 28 Alkaline Phosphatase 80 75 Total Protein 6.7 6.2 L Albumin 3.3 L 3.1 L Lipase 34 Time Spent with Patient Time Spent with Patient: <25 minutes Time was spent: preparing to see the patient(eg.review tests), obtaining and/or reviewing separately otained hiistory and counseling the patient
[2023-08-23 17:00] VITALS: BP 130/52; PULSE 58; RESP 18; TEMP 36.7; O2SAT 9
[2023-08-23] MEDS: Pantoprazole 40 MG TABCR PO (19:00)
[2023-08-23] MEDS: Lisinopril 10 MG TAB PO (19:00)
[2023-08-23] MEDS: Sucralfate 1 GM TAB PO (20:32)
[2023-08-23] MEDS: Bimatoprost 0.01% 2.5 ML BTL OP (20:32)
[2023-08-23] MEDS: PIPERACILLIN/TAZO 3.375 GM in Normal Saline 50 ML IVPB (21:53)
[2023-08-23 23:30] VITALS: BP 119/51; PULSE 60; RESP 15; TEMP 37; O2SAT 95
[2023-08-24] VITALS (13 sets, daily range): BP systolic 108–153; BP diastolic 41–73; PULSE 51–62; RESP 11–18; TEMP 36.1–37.1; O2SAT 95–99; BMI 32.5
[2023-08-24] MEDS: Lactated Ringers 1,000 ML 75 ML IV (00:22)
[2023-08-24] MEDS: PIPERACILLIN/TAZO 3.375 GM in Normal Saline 50 ML IVPB ×4 (03:05→20:27)
[2023-08-24] MEDS: HYDROmorphone 2 MG/ML SYR 0.5 MG IVP ×4 (03:46→23:00)
[2023-08-24] MEDS: Normal Saline Flush 10 ML SYR IVP ×7 (03:46→23:01)
--- NOTE | 2023-08-24 07:50 | W.PM.PROGNOT ---
Date of Service Date of service: 08/24/23 Time of Service: 07:50 Assessment and Plan Assessment and plan (1) Abdominal pain, RUQ: Status: Acute Assessment and plan: H. Pylori results pending HIDA scan from yesterday 08/22, was unremarkable. Continue with pain control NPO for upper endoscopy later this morning PPI Encouraged activity OOB, ambulation and sitting in the chair. Upper Endoscopy for further evaluation of gastritis vs. peptic/duodenal ulcer Subjective Subjective Interval history since last seen: Arrive with Alonzo sitting in up in the recliner chair. He states his RUQ continues to be painful. He states his nausea has continued to be well controlled. He describes he was able to have a small BM yesterday. Exam Const General: cooperative, healthy appearing and comfortable Orientation: alert and oriented x3 Resp Effort & Inspection: normal respiratory effort, no audible wheezes and no cough GI Inspection: distended Palpation: soft, guarding and tender in the epigastrum and in the RUQ Objective Last Vital Signs Temp 36.9 C 08/24/23 03:42 Pulse 58 L 08/24/23 03:42 Resp 15 08/24/23 03:42 BP 134/64 08/24/23 03:42 Pulse Ox 96 08/24/23 03:42 Time Spent with Patient Time Spent with Patient: <25 minutes Time was spent: preparing to see the patient(eg.review tests), obtaining and/or reviewing separately otained hiistory and counseling the patient
--- NOTE | 2023-08-24 08:56 | ANES.PREOP_ITS ---
General Info Date of Service Date Performed: 08/24/23 Height: 5 ft 4 in Weight: 86.1 kg Body Mass Index (BMI): 32.5 Surgical Procedure: Operation Date: 08/24/23 12:05 Proposed Procedure Side Surgeon p Gastroscopy Sari Yusuf, Meds Allergies and Home Medications Allergies Allergy/AdvReac Type Severity Reaction Status Date / Time zolpidem [From Ambien] AdvReac Other (See Verified 08/22/23 11:32 Comment) Home Medication Medication Instructions Recorded qebcokof-unw-unnhs acid 0.4 1 tab PO DAILY 11/16/19 mg-lycopene 300 mcg-lutein 250 mcg tablet (Centrum Silver) atorvastatin 20 mg tablet 20 mg PO DAILY 08/19/23 bimatoprost 0.01 % eye drops 1 drp ophthalmic (eye) DAILY 08/19/23 (Lumigan) canagliflozin 100 mg tablet 100 mg PO DAILY 08/19/23 (Invokana) lisinopril 10 mg tablet 10 mg PO DAILY 08/19/23 tramadol 50 mg tablet 50 mg PO BID PRN pain #6 tabs 08/19/23 ondansetron 4 mg disintegrating 4 mg PO BID 5 days #10 tabs 08/21/23 tablet pantoprazole 40 mg tablet,delayed 40 mg PO DAILY #30 tabs 08/21/23 release sucralfate 1 gram tablet (Carafate) 1 g PO BID 14 days #28 tabs 08/21/23 Current Visit Medications: Current Medications Generic Name Dose Route Start Last Admin Trade Name Freq PRN Reason Stop Dose Admin Atorvastatin Calcium 20 mg 08/23/23 08:30 08/23/23 18:57 Atorvastatin 20 Mg Tab PO Not Given DAILY ARSENIO Bimatoprost 0 ml 08/23/23 20:00 08/23/23 20:32 Bimatoprost 0.01% 2.5 Ml Btl OP 1 drp QPM ARSENIO Administration Enoxaparin Sodium 40 mg 08/22/23 18:00 08/23/23 18:57 Enoxaparin 40 Mg/0.4 Ml Syr SC Not Given Q24H ARSENIO Hydromorphone HCl 0.5 mg 08/22/23 17:12 08/24/23 03:46 Hydromorphone 2 Mg/Ml Syr IVP 0.5 mg Q6H PRN PRN Administration Ringer's Solution 1,000 mls @ 75 mls/hr 08/24/23 00:05 08/24/23 00:22 IV 75 mls/hr INFUSION ARSENIO Administration Piperacillin Sod/Tazobactam 50 mls @ 100 mls/hr 08/23/23 20:00 08/24/23 03:38 Sod 3.375 gm/ Sodium Chloride IVPB Infused Q6H ARSENIO Infusion IV Miscellaneous Supplies 1 each 08/22/23 14:23 Iv Access IV DIRECTED ARSENIO Iron/Minerals/Multivitamins 1 tab 08/23/23 08:30 08/23/23 18:57 Multivitamin W/Minerals Tab PO Not Given DAILY [facility] Lisinopril 10 mg 08/23/23 08:30 08/23/23 18:57 Lisinopril 10 Mg Tab PO Not Given DAILY [facility] Ondansetron HCl 4 mg 08/22/23 14:23 Ondansetron 4 Mg/2 Ml Vial IVP Q4H PRN PRN Pantoprazole Sodium 40 mg 08/23/23 07:30 08/23/23 18:58 Pantoprazole 40 Mg Tabcr PO Not Given DAILY@0730 ARSENIO Sodium Chloride 0 ml 08/22/23 14:23 08/24/23 03:46 Normal Saline Flush 10 Ml Syr IVP 10 ml PRN PRN Administration Sodium Chloride 0 ml 08/22/23 20:00 08/23/23 20:32 Normal Saline Flush 10 Ml Syr IVP 10 ml BID ARSENIO Administration Sodium Chloride 0 ml 08/22/23 14:23 08/22/23 15:23 Normal Saline 10 Ml Vial IJ 10 ml DIRECTED PRN Administration Sucralfate 1 gm 08/22/23 20:00 08/23/23 20:32 Sucralfate 1 Gm Tab PO 1 gm BID ARSENIO Administration PFSH Active Problems Active Problems: Problem Status Onset Code Cholelithiasis K80.20 Abdominal pain, RUQ R10.11 Abdominal pain, acute, right upper quadrant R10.11 Epigastric abdominal pain R10.13 Gastritis K29.70 Esophageal reflux K21.9 Esophagitis K20.90 Left rotator cuff tear M75.102 Drug abuse F19.10 Red blood cell antibody positive with compatible PRBC difficult to obtain R76.8 Anemia D64.9 Hx of caloric malnutrition Z86.39 Nausea & vomiting R11.2 Melena K92.1 Duodenal ulcer disease K26.9 Left inguinal hernia K40.90 Gallstones K80.20 S/P TIPS (transjugular intrahepatic portosystemic shunt) Z95.828 Esophageal varices I85.00 Hepatitis C B19.20 Cirrhosis K74.60 Medical History Medical History (Updated 08/22/23 @ 13:36 by Ken Parnell MD) Hx of non-insulin dependent diabetes mellitus Hx of pneumothorax History of rib fracture Hx of fracture of clavicle Scoliosis Hypertension Hepatic encephalopathy Pancytopenia Red blood cell antibody positive with compatible PRBC difficult to obtain History of GI bleed variceal Surgical History Surgical History (Updated 01/23/20 @ 10:50 by Nadeen Davalos RN) Hx of basal cell carcinoma excision Hx of Achilles tendon repair History of esophagogastroduodenoscopy (EGD) (~01/16/20) multiple Previous back surgery S/P hernia repair S/P shoulder surgery Tobacco Smoking/Tobacco Use Status: Never Alcohol Alcohol Intake: former Year quit: 2019 Substance Use Substance use: Current Sobriety Substance use type: does not use and former substance user Details: 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 Vital Signs and Lab Results Vital Signs Most Recent Vital Signs in EMR: Most Recent Vital Signs Temp Pulse Resp BP Pulse Ox 37.1 C 51 L 16 113/55 L 96 08/24/23 07:58 08/24/23 07:58 08/24/23 07:58 08/24/23 07:58 08/24/23 07:58 Lab Results 08/23/23 06:25 08/22/23 11:10 Blood Type / Crossmatch: 2 Antibody Screen POSITIVE 08/19/23 Complete Blood Count: 2 White Blood Count 2.77 10^3/uL (4.4-10.8) L 08/23/23 06:25 Red Blood Count 3.92 10^6/uL (4.36-5.78) L 08/23/23 06:25 Hemoglobin 13.2 g/dL (13.5-17.5) L 08/23/23 06:25 Hematocrit 37.8 % (40.0-50.0) L 08/23/23 06:25 Platelet Count 105 10^3/uL (130-400) L 08/23/23 06:25 Venous Blood Lactate 1.7 mmol/L (0.6-1.4) H 08/19/23 13:33 Complete Metabolic Panel: 2 Sodium 145 mmol/L (136-145) 08/22/23 11:10 Potassium 4.2 mmol/L (3.5-5.1) 08/22/23 11:10 Chloride 109 mmol/L (98-107) H 08/22/23 11:10 Carbon Dioxide 29.9 mmol/L (21.0-32.0) 08/22/23 11:10 BUN 13 mg/dL (7-18) 08/22/23 11:10 Creatinine 0.8 mg/dL (0.70-1.30) 08/22/23 11:10 Est GFR (CKD-EPI 2020) 95.21 (mL/min/1.73m2) 08/22/23 11:10 Magnesium 1.7 mg/dL (1.8-2.4) L 08/19/23 13:33 Calcium 9.2 mg/dL (8.5-10.1) 08/22/23 11:10 Albumin 3.1 g/dL (3.4-5.0) L 08/23/23 06:25 Glucose 121 mg/dL (74-106) H 08/22/23 11:10 Liver Function Panel: 2 Alanine Aminotransferase (ALT/SGPT) 28 U/L (16-63) 08/23/23 06: 25 Aspartate Amino Transf (AST/SGOT) 26 U/L (15-37) 08/23/23 06:25 Coagulation Panel: 2 INR International Normalized Ratio 1.2 (0.9-1.1) H 08/19/23 13 :33 Prothrombin Time 11.9 sec (9.1-11.1) H 08/19/23 13:33 Activated Partial Thromboplast Time 25.3 sec (23.6-32.8) 13:33 Cardiac Panel: 2 Troponin I < 50 ng/L (< or =60) 08/19/23 NT-Pro-B Natriuret Pep 70 pg/mL (<300) 08/19/23 Arterial Blood Gas: 2 No Data to Display Venous Blood Gas: 2 No Data to Display Pancreas Panel: 2 Lipase 34 U/L (16-77) 05/13/24 11:10 Thyroid Panel: 2 No Data to Display Infectious Disease: 2 No Data to Display Blood Cultures: 2 No Data to Display Toxicology Panel: 2 No Data to Display Imaging and Studies Imaging and Studies Study information below may be from another EMR and interpreted by another provider. Please see original notes in EMR for more complete details. EKG Summary: Conclusion Sinus rhythm...normal P axis, V-rate 60- 99 I have reviewed and interpreted ECG and agree with software generated interpretation. 08/19/23 Anesthesia Assessment and Plan Anesthesia History Personal History: No History of Anesthesia Complications Family History: No Family History of Anesthesia Complications Exercise Tolerance Exercise Tolerance: Metabolic Equivalents>4 Pertinent Negatives Pertinent Negatives: No Major Cardiovascular Symptoms or Complaints Cardiac & Pulmonary Exam Cardiac Exam: Normal S1/S2 Heart Sounds Pulmonary Exam: Clear Bilateral Breath Sounds Implantable Cardiac Device Does patient have a Pacemaker or an ICD?: No Airway Exam Known Difficult Airway: No Mallampati Class: 2 Mouth Opening: Normal (> 3cm) Thyromental Distance: Greater than 3 cm Neck Range of Motion: Full ROM Neck Circumference: Normal Teeth Condition: Normal Dentition (permanent bride upper front four teeth) ASA Classification ASA Score: ASA 2 Emergency Case?: No NPO Status NPO Status: NPO Clears >2 hours, Solids >8 hours Anesthesia Plan Resuscitation Status: Full Code Anesthesia Technique: General Anesthesia Airway Planned: Natural Airway Monitors Used: Standard Monitors Preoperative Comments:: No Invokana since admission Tuesday
--- NOTE | 2023-08-24 12:31 | STOM_PTH ---
PATIENT: Alonzo Urbina LOC: U#:[id number] AGE/SX: 68/M ROOM: RE08/25/[address]: Guille Morillo MD : [id number] BED: A DIS: 08/29/2023 SPEC #: [id number] RECD: 08/24/23 17:31 STATUS: KALIN REQ #: [id number] RENEE: 08/24/23 12:[address]: Guille Morillo DEPT: Surgical Specimen RECD BY: Eden Maurer ENTERED: 08/24/23 17:32 SP TYPE: STOMACH OTHR DR: George Lou Tissues: 1 - BIOPSY BOWEL 2 - STOMACH BIOPSY 3 - STOMACH BIOPSY 4 - ESOPHAGUS BIOPSY 5 - ESOPHAGUS BIOPSY Procedures: GROSS AND MICRO LEVEL 4 Comments: [id number]
--- NOTE | 2023-08-24 13:25 | CMPROGNOTE_ITS ---
Date of service: 08/24/23 Time of Service: 13:25 Care Management Progress Note Progress Note Text Progress Note Text: S/O: Alonzo remains NPO for upper endoscopy to determine gastritis vs. peptic/duodenal ulcer planned for today, he continues to report ongoing pain and is being encouraged to get up out of bed, ambulate and sit in the chair. CM following. A: 68 year old admitted to [facility] for Gastritis P: Dong will likely be discharged home with no new services. He will follow up with his PCP and discharge plan of care. He will transport with friends via private vehicle. CM will continue to support Dong and assess for ongoing discharge needs. SDOH(Care Management) Screening Will the Patient Participate in the Screening?: Yes Do you worry about having a steady place to live?: no In the past 12 months, have you had to go without electric, gas, oil or water in your home?: no Have you or anyone in your house had to go without enough food to eat?: no Has lack of transportation kept you from medical appointments or from doing things needed for daily living?: no Has anyone in your support network made you feel unsafe for any reason?: no
--- NOTE | 2023-08-24 13:49 | W.ANESPOSTOP ---
Postoperative Evaluation Date, Time and Location Date Performed: 08/24/23 Time Performed: 13:21 Patient Location: Day Surgery Unit Vital Signs Most Recent Imported Vital Signs: Most Recent Vital Signs Temp Pulse Resp BP Pulse Ox 36.8 C 59 L 18 153/66 H 98 08/24/23 13:24 08/24/23 13:24 08/24/23 13:24 08/24/23 13:24 08/24/23 13:24 Pain Score Most Recent Pain Score: Most Recent Pain Score Pain Level [Mid Abdomen] 8 08/24/23 09:00 Pain Level 7 08/24/23 11:43 Assessment Mental Status: Awake (Alert & Oriented to Patient Baseline) Airway and Respiratory Function: Patent airway with normal (patient baseline) respiratory exam Cardiovascular Function: Hemodynamically Stable Hydration Status: Adequately Hydrated Nausea & Vomiting: No Nausea or Vomiting Pain: Pain is tolerable per patient Peripheral Nerve Block: Patient did not receive a nerve block
--- NOTE | 2023-08-24 14:04 | ENDO_ITS ---
Date of service: 08/24/23 Time of Service: 14:04 Endoscopy Report DATE OF PROCEDURE: 08/24/23 PRE-OP DIAGNOSIS: Abdominal pain POST-OP DIAGNOSIS: other (Duodenitis/anterior duodenal ulcer with no bleeding/gastritis) SURGEON: Sari Yusuf ANESTHESIA TYPE: General:No Airway ESTIMATED BLOOD LOSS: 2 PATHOLOGY: other COMPLICATIONS: None DISPOSITION: PACU PROCEDURE DESCRIPTION: After informed consent was obtained the patient was take to the procedure room and placed in a supine position. Monitors were applied and a time out was done. The patients name, date of , procedure type, allergies to medications and metal in their body was reviewed. A bite block was placed and the patient was sedated. Once sedated and comfortable the gastroscope was advanced through the oropharynx which was grossly normal into the esophagus. The proximal and mid- esophagus were normal in the distal esophagus: There were no esophageal varices strictures esophagitis or hiatal hernia. The scope was advanced into the stomach and through the pylorus into the 3rd portion of the duodenum. The anterior duodenum shows a large ulcer. It has a thick whitish eschar present. There is no signs of active bleeding. There is also severe duodenitis in the duodenal bulb. Biopsies are taken of the duodenal bulb and the ulcer crater. All specimens are retrieved and there is no bleeding noted. There does not appear to be malignancy I am able to get past the ulcer into the third portion of the duodenum. This appears normal. The scope was retracted back into the stomach and biopsies were done to rule out H. pylori. There were no ulcers in the body of the stomach. There is moderate gastritis radiating in a straight fashion from the antrum. There is also some mild portal gastropathy noted the scope was retroflexed. The cardia and fundus were noted to be normal. There is no hiatal hernia noted. The scope was retracted back into the esophagus and biopsies were done of the GE junction to rule out Bernal's. The Z line was regular. The GE junction was at 35 cm. The scope was removed and the patient was woken up and taken back to PACU.
--- NOTE | 2023-08-24 14:28 | PHA.REVIEW2 ---
Pharmacy Admission Review Admission Clinical Review Admission Pharmacy Review: Abdominal pain, RUQ (Acute) zolpidem [From Ambien] Adverse Reaction (Verified 08/22/23 11:32) Other (See Comment) Resuscitation Status Full Code Height 5 ft 4 in Weight 86.1 kg Pharmacy Admission Review Renal Dosing Renal Dosing: BUN 13 mg/dL (7-18) 08/22/23 11:10 Creatinine 0.8 mg/dL (0.70-1.30) 08/22/23 11:10 Medications needing adjustments: Reviewed (CrCl 68.01 mL/min) List of meds needing interventions: Current medications are okay Anticoagulation Anticoagulation: Hgb 13.2 g/dL (13.5-17.5) L 08/23/23 06:25 Hct 37.8 % (40.0-50.0) L 08/23/23 06:25 Plt Count 105 10^3/uL (130-400) L 08/23/23 06:25 Creatinine 0.8 mg/dL (0.70-1.30) 08/22/23 11:10 DVT Prophylaxis: Reviewed (Had order for enoxaparin that was put on hold and then discontinued today by provider) Opiate Usage Evaluate Pain Scale/Pains Meds: Reviewed (PRN hydromorphone) Scheduled Bowel Reg ordered if on Opiates?: No Relevant Labs Relevant Labs: Sodium 145 mmol/L (136-145) 08/22/23 11:10 Potassium 4.2 mmol/L (3.5-5.1) 08/22/23 11:10 Chloride 109 mmol/L (98-107) H 08/22/23 11:10 Electrolytes, C-Reactive P, ESR: Reviewed (Glucose 125, no other new labs for today) Cardiac Review Cardiac Review: Blood Pressure 116/73 1353 Blood Pressure 153/66 1324 Blood Pressure 140/61 1311 Blood Pressure 146/59 1258 Blood Pressure 140/56 1253 Blood Pressure 144/55 1248 Blood Pressure 133/47 1243 Blood Pressure 108/41 1112 Blood Pressure 113/55 0758 Blood Pressure 134/64 0342 BP, HR, EF%: Reviewed (BP WNL, HR 59) QTc Review QTc: Reviewed (467 from 08/19/23) IV to PO Switch IV Medications: Reviewed (Hydromorphone, ondansetron and Zosyn) Home Meds Home Med List reviewed: Reviewed Relevent Home Meds Not ordered & why?: Invokana (on hold?) and tramadol (PRN) Current Meds Current Medication Order Review: Reviewed Pharmacy Antibiotic Review Relevant Labs: WBC 2.77 10^3/uL (4.4-10.8) L 08/23/23 06:25 Temperature 36.1 C Temperature 36.8 C Temperature 36.8 C Temperature 36.8 C Temperature 36.8 C Temperature 37.1 C Temperature 37.1 C Temperature 36.7 C Temperature 37.1 C Temperature 36.9 C Pharmacy Antibiotic Activity: Reviewed, no change Comments: Patient is on day 1 of Zosyn for gastritis. He is currently NPO for endoscopy scheduled for today.
[2023-08-24] MEDS: Atorvastatin 20 MG TAB PO (14:48)
[2023-08-24] MEDS: Lisinopril 10 MG TAB PO (14:49)
[2023-08-24] MEDS: Sucralfate 1 GM TAB PO ×2 (18:05→20:34)
[2023-08-24] MEDS: Bimatoprost 0.01% 2.5 ML BTL OP (20:34)
--- NOTE | 2023-08-24 21:16 | W.PM.PROGNOT ---
Date of Service Date of service: 08/24/23 Time of Service: 21:16 Assessment and Plan Assessment and plan (1) Duodenal ulcer disease: Status: Acute (2) Cirrhosis: Status: Chronic Qualifiers: Hepatic cirrhosis type: unspecified hepatic cirrhosis Ascites presence: without ascites Qualified Code(s): K74.60 - Unspecified cirrhosis of liver (3) S/P TIPS (transjugular intrahepatic portosystemic shunt): Status: Chronic (4) Red blood cell antibody positive with compatible PRBC difficult to obtain: Status: Acute (5) Hypertension: (6) Hx of non-insulin dependent diabetes mellitus: (7) RLQ abdominal pain: Status: Acute Subjective Subjective Interval history since last seen: Patient is now complaining of right lower pain. He still requiring narcotic pain medication. He did have a bowel movement and this did not help. It does not seem to be associated with eating. His last colonoscopy was in 2013 and was negative. We did do an EGD today which did show large duodenal ulcer. Will increase his PPI and Carafate. And see if this helps with his pain I am going to repeat ultrasound of the gallbladder in AM. He has been able to eat. He still complains of nausea and bloating. I did review his CT and I do think that those are gallstones present in his gallbladder. He has had 2 CTs since he been there has been here I would like to see if they visualize on ultrasound. HIDA scan is normal Continue supportive care. Exam Narrative Exam Narrative: L: CTA b/l H: NSR abdomn- RLQ pain BS nl. no peritonitis. no ascites Objective Last Vital Signs Temp 36.7 C 08/24/23 15:37 Pulse 52 L 08/24/23 15:37 Resp 16 08/24/23 19:04 BP 114/43 L 08/24/23 15:37 Pulse Ox 99 08/24/23 15:37 Time Spent with Patient Time Spent with Patient: 25-34 minutes Time was spent: preparing to see the patient(eg.review tests), obtaining and/or reviewing separately otained hiistory, ordering medications,tests, procedures, referring, communicating with other health health care technician, indepentently interpreting results, counseling the patient and care coordination
--- NOTE | 2023-08-25 | DI.US_ITS ---
Exam(s) US ABDOMEN LIMITED EXAM: US ABDOMEN LIMITED CLINICAL HISTORY: Repeat ultrasound of gallbladder looking for gall TECHNIQUE: Ultrasound abdomen performed using standard protocol. COMPARISON: CT CT ABDOMEN PELVIS W from 08/21/2023 US US ABDOMEN LIMITED from 08/22/2023 FINDINGS: PANCREAS: Normal where visualized. LIVER: The liver is heterogeneous in echotexture consistent with hepatic cirrhosis. Hepatopetal flow in the Portal Vein. The liver measures in 12.6 cm length. No evidence of a hepatic mass. The patien t has a TIPS. There is a lobulated protrusion along the cortex of the right lobe measuring 2.8 x 2 x 2.2 cm. It is isoechoic to the liver. This may reflect the patient's hepatic cirrhosis. No corres ponding mass is seen on the CT scan from 08/21/2023. GALLBLADDER:Gallstones are present. No evidence of wall thickening. No pericholecystic fluid identif ied. BILIARY SYSTEM: Common bile duct measures < 7 mm. No intrahepatic biliary ductal dilation. BALDWIN'S SIGN: Negative. RIGHT KIDNEY: Kidney is normal in size. No evidence of renal calculi. No evidence of hydronephrosis. No renal mass or cyst identified. ASCITES: None seen. IMPRESSION: 1. Stones are seen in the neck of the gallbladder. This area could not be well visualized on the tami or examination due to overlying bowel. 2. Findings of hepatic cirrhosis with a TIPS. 3. Lobulated 2.8 x 2 x 2.2 cm protrusion along the right lobe of the liver. It is isoechoic to the l iver. No corresponding area is seen on the CT scan. MRI should be considered for further evaluation . Unexpected findings DATA REPOSITORY:
[2023-08-25 01:43] VITALS: RESP 16; O2SAT 94
[2023-08-25] MEDS: PIPERACILLIN/TAZO 3.375 GM in Normal Saline 50 ML IVPB ×4 (02:15→21:30)
[2023-08-25] MEDS: Normal Saline Flush 10 ML SYR IVP ×6 (02:17→21:04)
[2023-08-25] MEDS: HYDROmorphone 2 MG/ML SYR 0.5 MG IVP ×4 (06:07→21:04)
[2023-08-25 07:17] VITALS: BP 117/52; PULSE 48; RESP 18; TEMP 37.1; O2SAT 96
--- NOTE | 2023-08-25 07:44 | W.PM.PROGNOT ---
Date of Service Date of service: 08/25/23 Time of Service: 07:44 Assessment and Plan Assessment and plan (1) Abdominal pain, RUQ: Status: Acute Assessment and plan: H. Pylori results pending HIDA scan from 08/22, was unremarkable. EGD from 08/23 was remarkable for duodenitis/anterior duodenal ulcer without bleeding). Abdominal US planned for later today Continue with pain control NPO for abdominal US. PPI/carafate Encouraged activity OOB, ambulation and sitting in the chair. Subjective Subjective Interval history since last seen: Arrive with patient ambulating within his room. He states that the RUQ pain continues to be present. He is eager to be d/c home. Denies having any nausea or vomiting. Exam Const General: cooperative, healthy appearing and comfortable Orientation: alert and oriented x3 Resp Effort & Inspection: normal respiratory effort, no audible wheezes and no cough GI Inspection: normal to inspection Palpation: soft, no guarding and tender in the RUQ Objective Last Vital Signs Temp 37.1 C 08/25/23 07:17 Pulse 48 L 08/25/23 07:17 Resp 18 08/25/23 07:17 BP 117/52 L 08/25/23 07:17 Pulse Ox 96 08/25/23 07:17 Time Spent with Patient Time Spent with Patient: <25 minutes Time was spent: preparing to see the patient(eg.review tests), obtaining and/or reviewing separately otained hiistory and counseling the patient
[2023-08-25] MEDS: Atorvastatin 20 MG TAB PO (10:48)
[2023-08-25] MEDS: Lisinopril 10 MG TAB PO (10:48)
[2023-08-25] MEDS: Sucralfate 1 GM TAB PO ×3 (10:48→21:04)
--- NOTE | 2023-08-25 11:37 | PDOC.CMPRO ---
Date of service: 08/25/23 Time of Service: 11:37 Care Management Progress Note Progress Note Text Progress Note Text: S/O: Alonzo was sitting up in his chair eating lunch when CM met with him. He stated that he is doing well, and is looking forward to being discharged home. Per MD, he is not medically cleared for discharge, as his EGD from yesterday revealed an ulcer. He had an abdominal u/s today, and is being monitored closely for pain. Alonzo stated that he is very independent, and has friends who are supportive. He does not feel that services in the community are indicated at this time. CM will continue to follow. A: 68 year old admitted to [facility] for Gastritis P: Dong will likely be discharged home with no new services. He will follow up with his PCP and discharge plan of care. He will transport with friends via private vehicle. CM will continue to support Dong and assess for ongoing discharge needs. SDOH(Care Management) Screening Will the Patient Participate in the Screening?: Yes Do you worry about having a steady place to live?: no In the past 12 months, have you had to go without electric, gas, oil or water in your home?: no Have you or anyone in your house had to go without enough food to eat?: no Has lack of transportation kept you from medical appointments or from doing things needed for daily living?: no Has anyone in your support network made you feel unsafe for any reason?: no
[2023-08-25] MEDS: oxyCODONE 5 MG TAB PO ×2 (14:53→18:53)
[2023-08-25 15:01] VITALS: BP 137/56; PULSE 53; RESP 20; TEMP 37; O2SAT 98
--- NOTE | 2023-08-25 15:18 | CHAPLAIN ---
Alonzo was watching something on this phone when I visited. He was up in the chair. He explained that he has a bleeding ulcer. Alonzo said he has support from friends in AA and told me that he recently received his 5 year medallion. He is active with the Dr. 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 He was raised as a Menonite, and considers himself Voodoo and has a strong relationship with God that was developed through the AA program. Alonzo was pleasant and easily engaged in a conversation.
--- NOTE | 2023-08-25 18:06 | PGE_ITS ---
Date of Service Date of service: 08/25/23 Time of Service: 18:06 Assessment and Plan Assessment and plan (1) Hx of caloric malnutrition: Status: Acute (2) Duodenal ulcer disease: Status: Acute Assessment and plan: Continue PPI drip Carafate every 6 hours Trend H&H (3) Cirrhosis: Status: Chronic Qualifiers: Ascites presence: without ascites Hepatic cirrhosis type: unspecified hepatic cirrhosis Qualified Code(s): K74.60 - Unspecified cirrhosis of liver (4) Cholelithiasis: Status: Acute (5) S/P TIPS (transjugular intrahepatic portosystemic shunt): Status: Chronic (6) Epigastric abdominal pain: Status: Acute (7) Anemia: Status: Chronic Qualifiers: Anemia type: unspecified type Qualified Code(s): D64.9 - Anemia, unspecified Subjective Subjective Interval history since last seen: Pt is doing well. no headaches. No CP or SOB. no productive cough. no dysuria. no leg pain or swelling. Patient has not noticed any blood in his stools. He is not coughing up or vomiting any blood. He is tolerating p.o.'s. We did repeat the ultrasound today which does show that he has a gallstone impacted in the neck. We are unable to get him pain-free. He has no f ever/white count. His LFTs are normal. They did feed him chicken salad with heavy Barboza today which may be contributing in part to this. I did discuss the case with anesthesia.. Because of his cirrhosis and history of encephalopathy, prior TIPS procedure, and the atypical antibodies if he needed blood, I think he is a high risk patient and should be done at [facility]. Anesthesia concurred there is and does not wish to provide anesthesia to him. Dr. Morillo and I have discussed this case and neither of us want to operate on him because of his cirrhosis. He is also at high risk for problems with e ncephalopathy postanesthesia. I think he would be better served having his procedure done at [facility] where his GI team is asked. We will work on finding good oral pain regimen and continue to dormitory counselor patient on a low-fat diet. I did send a referral to [facility] general surgery. Hopefully they can see him sometime in the next week and we will get him on schedule for surgery. This document was created with voice activated software and may contain errors. Exam Narrative Exam Narrative: PHYSICAL EXAM GENERAL APPEARANCE: Alert, healthy appearance, oriented, x 3,? in no acute distress HYDRATION: Well hydrated HEAD, EYES, EARS, NECK, THROAT: Head is normocephalic, pupils equal, round, reactive to light and accommodation, ocular movement intact, sclera clear and no jaundice. ?Dentition intact. LUNGS: normal respiration/normal chest excursion. ?Clear to auscultation bilaterally. ?No wheeze. ?HEART: Regular rate and rhythm. no murmurs ABDOMEN: Tender in right lower Diffuse peritonitis. The pain is controlled o with IV narcotic pain medication. He is tolerating diet. He has had no nausea or vomiting. He has had no fever or chills. And labs remain normal. Objective Last Vital Signs Temp 37.0 C 08/25/23 15: Pulse 53 L 08/25/23 15:01 Resp 20 08/25/23 15:01 BP 137/56 L 08/25/23 15: Pulse Ox 98 08/25/23 15:01 Reviewed Pertinent PMH: Yes Anemia profile Hgb 13.9 g/dL (13.5-17.5) 08/26/23 Hct 39.6 % (40.0-50.0) L 08/26/23 MCV 96 fL (80-95) H 08/23/23 RDW 12.6 % (11.8-14.1) 08/23/23 Iron 37 ug/dL (65-175) L 01/16/20 Ferritin 124 ng/mL (26-388) 08/26/23 TIBC 320 ug/dL (250-450) 01/16/20 Transferrin % Sat 12 % (20-55) L 01/16/20 Vitamin B12 974 pg/mL (193-986) 08/26/23 Folate 15.3 ng/mL (8.6-20.0) 08/26/23 Basic Metabolic Sodium 145 mmol/L (136-145) 08/22/23 Potassium 4.2 mmol/L (3.5-5.1) 08/22/23 Chloride 109 mmol/L (98-107) H 08/22/23 Carbon Dioxide 29.9 mmol/L (21.0-32.0) 08/22/23 BUN 13 mg/dL (7-18) 08/22/23 Creatinine 0.8 mg/dL (0.70-1.30) 08/22/23 Estimated GFR/1.73 m2 >= 60.00 (mL/min/1.73m2) 09/25/21 Glucose 121 mg/dL (74-106) H 08/22/23 CBC White Blood Count 2.77 10^3/uL (4.4-10.8) L 08/23/23 Red Blood Count 3.92 10^6/uL (4.36-5.78) L 08/23/23 Hemoglobin 13.9 g/dL (13.5-17.5) 08/26/23 Hematocrit 39.6 % (40.0-50.0) L 08/26/23 Mean Corpuscular Volume 96 fL (80-95) H 08/23/23 Mean Corpuscular Hemoglobin 33.7 pg (27.0-33.0) H 08/23/23 Mean Corpuscular Hemoglobin Concent 34.9 % (32.0-36.0) 08/09 08/02 Red Cell Distribution Width 12.6 % (11.8-14.1) 08/23/23 Platelet Count 105 10^3/uL (130-400) L 08/23/23 Mean Platelet Volume 8.5 fL (8.0-11.0) 08/23/23 Neutrophils % 63.9 % 08/22/23 Lymphocytes % 21.0 % 08/22/23 Monocytes % 9.4 % 08/22/23 Eosinophils % 4.6 % 08/22/23 Basophils % 0.8 % 08/22/23 Immature Granulocytes % 0.3 % 08/22/23 Comprehensive Metabolic Panel Sodium 145 mmol/L (136-145) 08/22/23 11:10 Potassium 4.2 mmol/L (3.5-5.1) 08/22/23 11:10 Chloride 109 mmol/L (98-107) H 08/22/23 11:10 Carbon Dioxide 29.9 mmol/L (21.0-32.0) 08/22/23 11:10 BUN 13 mg/dL (7-18) 08/22/23 11:10 Creatinine 0.8 mg/dL (0.70-1.30) 08/22/23 11:10 Estimated GFR/1.73 m2 >= 60.00 (mL/min/1.73m2) 09/25/21 11:10 Glucose 121 mg/dL (74-106) H 08/22/23 11:10 Calcium 9.2 mg/dL (8.5-10.1) 08/22/23 11:10 Conjugated Bilirubin 0.4 mg/dL (0.0-0.2) H 08/26/23 06:25 Total Bilirubin 1.2 mg/dL (0.2-1.0) H 08/26/23 06:25 ALT 29 U/L (16-63) 08/26/23 06:25 AST 26 U/L (15-37) 08/26/23 06:25 Alkaline Phosphatase 71 U/L (46-116) 08/26/23 06:25 Total Protein 6.1 g/dL (6.4-8.2) L 08/26/23 06:25 Albumin 3.0 g/dL (3.4-5.0) L 08/26/23 06:25 Diabetes results Hemoglobin A1c 6.6 % (3.8-5.6) H 11/23/19 Glucose 121 mg/dL (74-106) H 08/22/23 Total Cholesterol 165 mg/dL (<200) 03/22/23 LDL Cholesterol, Calc 62 mg/dL (<100) 03/22/23 HDL Cholesterol 95 mg/dL (40-60) 03/22/23 Triglycerides 41 mg/dL (<150) 03/22/23 BUN 13 mg/dL (7-18) 08/22/23 Creatinine 0.8 mg/dL (0.70-1.30) 08/22/23 Estimated GFR/1.73 m2 >= 60.00 (mL/min/1.73m2) 09/25/21 Est GFR (CKD-EPI 2020) 95.21 (mL/min/1.73m2) 08/22/23 Sodium 145 mmol/L (136-145) 08/22/23 Potassium 4.2 mmol/L (3.5-5.1) 08/22/23 Chloride 109 mmol/L (98-107) H 08/22/23 Carbon Dioxide 29.9 mmol/L (21.0-32.0) 08/22/23 Calcium 9.2 mg/dL (8.5-10.1) 08/22/23 AST 26 U/L (15-37) 08/26/23 ALT 29 U/L (16-63) 08/26/23 Total Protein 6.1 g/dL (6.4-8.2) L 08/26/23 Albumin 3.0 g/dL (3.4-5.0) L 08/26/23 TSH 0.86 uIU/mL (0.358-3.74) 08/09/18 Vitamin B12 974 pg/mL (193-986) 08/26/23 Lipid profile Total Cholesterol 165 mg/dL (<200) 03/22/23 HDL Cholesterol 95 mg/dL (40-60) 03/22/23 LDL Cholesterol, Calc 62 mg/dL (<100) 03/22/23 Triglycerides 41 mg/dL (<150) 03/22/23 Stool tests (SJP) No Data to Display Time Spent with Patient Time Spent with Patient: 35-49 minutes Time was spent: preparing to see the patient(eg.review tests), obtaining and/or reviewing separately otained hiistory, ordering medications,tests, procedures, referring, communicating with other health care management coordinator, indepentently interpreting results, counseling the patient and care coordination
[2023-08-25] MEDS: Bimatoprost 0.01% 2.5 ML BTL OP (22:15)
[2023-08-25] MEDS: PANTOPRAZOLE 80 MG in Normal Saline 100 ML 10 MG IV (22:15)
[2023-08-25 23:25] VITALS: BP 130/67; PULSE 60; RESP 18; TEMP 36.5; O2SAT 97
[2023-08-25] MEDS: oxyCODONE 5 MG TAB 10 MG PO (23:46)
[2023-08-26] MEDS: HYDROmorphone 2 MG/ML SYR 0.5 MG IVP ×4 (02:05→23:02)
[2023-08-26] MEDS: PIPERACILLIN/TAZO 3.375 GM in Normal Saline 50 ML IVPB ×4 (02:07→19:06)
[2023-08-26] MEDS: oxyCODONE 5 MG TAB 10 MG PO ×5 (04:09→21:01)
[2023-08-26 06:36] LABS: HCT 39.6 % (40.0-50.0); HGB 13.9 g/dL (13.5-17.5)
[2023-08-26 06:41] LABS: Ammonia 11 umol/L (11-32)
[2023-08-26 07:10] LABS: ALT 29 U/L (16-63); AST 26 U/L (15-37); Alkaline Phosphatase 71 U/L (46-116); Bilirubin, Direct 0.4 mg/dL (0.0-0.2); Bilirubin, Total 1.2 mg/dL (0.2-1.0); Total Protein 6.1 g/dL (6.4-8.2)
[2023-08-26 07:47] LABS: Ferritin 124 ng/mL (26-388); Folate 15.3 ng/mL (8.6-20.0); Vitamin B12 974 pg/mL (193-986)
[2023-08-26 07:56] VITALS: BP 114/58; PULSE 50; RESP 17; TEMP 36; O2SAT 98
[2023-08-26] MEDS: Lisinopril 10 MG TAB PO (08:07)
[2023-08-26] MEDS: Atorvastatin 20 MG TAB PO (08:07)
[2023-08-26] MEDS: Normal Saline Flush 10 ML SYR IVP ×4 (08:07→19:09)
[2023-08-26] MEDS: Sucralfate 1 GM TAB PO ×4 (08:07→21:02)
[2023-08-26] MEDS: PANTOPRAZOLE 80 MG in Normal Saline 100 ML 10 MG IV (10:26)
--- NOTE | 2023-08-26 13:45 | PGE_ITS ---
Date of Service Date of service: 08/26/23 Time of Service: 13:45 Assessment and Plan Assessment and plan (1) Hx of caloric malnutrition: Status: Acute (2) Esophageal reflux: Status: Chronic (3) Duodenal ulcer disease: Status: Acute Assessment and plan: path reviewed PPI drip carafate q6 no n/v. no diarrhea. pt still requiring a large amount of narcotics for pain pt is on a low fat start actigall (4) Nausea & vomiting: Status: Acute Assessment and plan: resolved Qualifiers: Vomiting Intractability: intractable Vomiting type: unspecified Qualified Code(s): R11.2 - Nausea with vomiting, unspecified (5) Cirrhosis: Status: Chronic Assessment and plan: stable Qualifiers: Ascites presence: without ascites Hepatic cirrhosis type: unspecified hepatic cirrhosis Qualified Code(s): K74.60 - Unspecified cirrhosis of liver (6) Cholelithiasis: Status: Acute (7) Gallstones: Status: Chronic (8) S/P TIPS (transjugular intrahepatic portosystemic shunt): Status: Chronic (9) Melena: Status: Acute Assessment and plan: none hgb stable This document was created with voice activated software and may contain errors. 15 mins spent in direct pt care and 15 in non face to face time (10) Abdominal pain, acute, right upper quadrant: Status: Acute (11) Abdominal pain, RUQ: Status: Acute (12) Anemia: Status: Chronic Qualifiers: Anemia type: unspecified type Qualified Code(s): D64.9 - Anemia, unspecified (13) Red blood cell antibody positive with compatible PRBC difficult to obtain: Status: Acute (14) Hypertension: (15) Hx of non-insulin dependent diabetes mellitus: Subjective Subjective Interval history since last seen: Pt is doing well. no headaches. No CP or SOB. no productive cough. no dysuria. no leg pain or swelling. He feels his pain is not well-controlled. He gets pain when he eats. He has been moving his bowels. Exam Narrative Exam Narrative: abdom is soft and good BS. c/o pain in RLQ no leg pain or swelling. no hernias L: cta Objective Last Vital Signs Temp 36.0 C L 08/26/23 07:56 Pulse 50 L 08/26/23 07:56 Resp 17 08/26/23 07:56 BP 114/58 L 08/26/23 07:56 Pulse Ox 98 08/26/23 07:56 Laboratory Results - last 24 hr 08/26/23 06:25 Hgb 13.9 Hct 39.6 L Ferritin 124 Total Bilirubin 1.2 H Conjugated Bilirubin 0.4 H AST 26 ALT 29 Alkaline Phosphatase 71 Ammonia 11 Total Protein 6.1 L Albumin 3.0 L Vitamin B12 974 Folate 15.3 Anemia profile Hgb 13.9 g/dL (13.5-17.5) 08/26/23 Hct 39.6 % (40.0-50.0) L 08/26/23 MCV 96 fL (80-95) H 08/23/23 RDW 12.6 % (11.8-14.1) 08/23/23 Iron 37 ug/dL (65-175) L 01/16/20 Ferritin 124 ng/mL (26-388) 08/26/23 TIBC 320 ug/dL (250-450) 01/16/20 Transferrin % Sat 12 % (20-55) L 01/16/20 Vitamin B12 974 pg/mL (193-986) 08/26/23 Folate 15.3 ng/mL (8.6-20.0) 08/26/23 Basic Metabolic Sodium 145 mmol/L (136-145) 08/22/23 Potassium 4.2 mmol/L (3.5-5.1) 08/22/23 Chloride 109 mmol/L (98-107) H 08/22/23 Carbon Dioxide 29.9 mmol/L (21.0-32.0) 08/22/23 BUN 13 mg/dL (7-18) 08/22/23 Creatinine 0.8 mg/dL (0.70-1.30) 08/22/23 Estimated GFR/1.73 m2 >= 60.00 (mL/min/1.73m2) 09/25/21 Glucose 121 mg/dL (74-106) H 08/22/23 CBC White Blood Count 2.77 10^3/uL (4.4-10.8) L 08/23/23 Red Blood Count 3.92 10^6/uL (4.36-5.78) L 08/23/23 Hemoglobin 13.9 g/dL (13.5-17.5) 08/26/23 Hematocrit 39.6 % (40.0-50.0) L 08/26/23 Mean Corpuscular Volume 96 fL (80-95) H 08/23/23 Mean Corpuscular Hemoglobin 33.7 pg (27.0-33.0) H 08/23/23 Mean Corpuscular Hemoglobin Concent 34.9 % (32.0-36.0) 08/09 08/02 Red Cell Distribution Width 12.6 % (11.8-14.1) 08/23/23 Platelet Count 105 10^3/uL (130-400) L 08/23/23 Mean Platelet Volume 8.5 fL (8.0-11.0) 08/23/23 Neutrophils % 63.9 % 08/22/23 Lymphocytes % 21.0 % 08/22/23 Monocytes % 9.4 % 08/22/23 Eosinophils % 4.6 % 08/22/23 Basophils % 0.8 % 08/22/23 Immature Granulocytes % 0.3 % 08/22/23 Comprehensive Metabolic Panel Sodium 145 mmol/L (136-145) 08/22/23 11:10 Potassium 4.2 mmol/L (3.5-5.1) 08/22/23 11:10 Chloride 109 mmol/L (98-107) H 08/22/23 11:10 Carbon Dioxide 29.9 mmol/L (21.0-32.0) 08/22/23 11:10 BUN 13 mg/dL (7-18) 08/22/23 11:10 Creatinine 0.8 mg/dL (0.70-1.30) 08/22/23 11:10 Estimated GFR/1.73 m2 >= 60.00 (mL/min/1.73m2) 09/25/21 11:10 Glucose 121 mg/dL (74-106) H 08/22/23 11:10 Calcium 9.2 mg/dL (8.5-10.1) 08/22/23 11:10 Conjugated Bilirubin 0.4 mg/dL (0.0-0.2) H 08/26/23 06:25 Total Bilirubin 1.2 mg/dL (0.2-1.0) H 08/26/23 06:25 ALT 29 U/L (16-63) 08/26/23 06:25 AST 26 U/L (15-37) 08/26/23 06:25 Alkaline Phosphatase 71 U/L (46-116) 08/26/23 06:25 Total Protein 6.1 g/dL (6.4-8.2) L 08/26/23 06:25 Albumin 3.0 g/dL (3.4-5.0) L 08/26/23 06:25 Diabetes results Hemoglobin A1c 6.6 % (3.8-5.6) H 11/23/19 Glucose 121 mg/dL (74-106) H 08/22/23 Total Cholesterol 165 mg/dL (<200) 03/22/23 LDL Cholesterol, Calc 62 mg/dL (<100) 03/22/23 HDL Cholesterol 95 mg/dL (40-60) 03/22/23 Triglycerides 41 mg/dL (<150) 03/22/23 BUN 13 mg/dL (7-18) 08/22/23 Creatinine 0.8 mg/dL (0.70-1.30) 08/22/23 Estimated GFR/1.73 m2 >= 60.00 (mL/min/1.73m2) 09/25/21 Est GFR (CKD-EPI 2020) 95.21 (mL/min/1.73m2) 08/22/23 Sodium 145 mmol/L (136-145) 08/22/23 Potassium 4.2 mmol/L (3.5-5.1) 08/22/23 Chloride 109 mmol/L (98-107) H 08/22/23 Carbon Dioxide 29.9 mmol/L (21.0-32.0) 08/22/23 Calcium 9.2 mg/dL (8.5-10.1) 08/22/23 AST 26 U/L (15-37) 08/26/23 ALT 29 U/L (16-63) 08/26/23 Total Protein 6.1 g/dL (6.4-8.2) L 08/26/23 Albumin 3.0 g/dL (3.4-5.0) L 08/26/23 TSH 0.86 uIU/mL (0.358-3.74) 08/09/18 Vitamin B12 974 pg/mL (193-986) 08/26/23 Lipid profile Total Cholesterol 165 mg/dL (<200) 03/22/23 HDL Cholesterol 95 mg/dL (40-60) 03/22/23 LDL Cholesterol, Calc 62 mg/dL (<100) 03/22/23 Triglycerides 41 mg/dL (<150) 03/22/23 Time Spent with Patient Time Spent with Patient: 35-49 minutes Time was spent: preparing to see the patient(eg.review tests), obtaining and/or reviewing separately otained hiistory, ordering medications,tests, procedures, referring, communicating with other health medicare contact specialist, indepentently interpreting results, counseling the patient and care coordination
[2023-08-26 14:39] LABS: Helicobacter pylori Ag, Feces Negative (Negative)
[2023-08-26 15:07] VITALS: BP 117/63; PULSE 65; RESP 18; TEMP 37.3; O2SAT 97
--- NOTE | 2023-08-26 17:06 | PDOC.CMPRO ---
Date of service: 08/26/23 Time of Service: 17:06 Care Management Progress Note Progress Note Text Progress Note Text: S/O: Alonzo was sitting up in his chair when CM met with him. He stated that per MD, he will need surgery, which will not happen at [facility], and that the MD is reaching out to [facility]. He reported that he is requiring IV medication for pain control, which is why he remains at [facility]. CM stated that per MD, the goal will be to have his pain controlled on an oral regiment, and for him to discharge home, awaiting his follow up with [facility]. Alonzo asked about paperwork for short term disability; CM informed that he should discuss his benefits with the HR department of his employer, to determine his eligibility. CM will continue to follow. A: 68 year old admitted to [facility] for Gastritis P: Dong will likely be discharged home with no new services. He will follow up with his PCP and discharge plan of care. He will transport with friends via private vehicle. CM will continue to support Dong and assess for ongoing discharge needs. SDOH(Care Management) Screening Will the Patient Participate in the Screening?: Yes Do you worry about having a steady place to live?: no In the past 12 months, have you had to go without electric, gas, oil or water in your home?: no Have you or anyone in your house had to go without enough food to eat?: no Has lack of transportation kept you from medical appointments or from doing things needed for daily living?: no Has anyone in your support network made you feel unsafe for any reason?: no
[2023-08-26] MEDS: Bimatoprost 0.01% 2.5 ML BTL OP (19:07)
[2023-08-26] MEDS: Acetaminophen 500 MG TAB 1000 MG PO (21:02)
[2023-08-26 23:06] VITALS: BP 110/60; PULSE 54; RESP 18; TEMP 37.1; O2SAT 94
[2023-08-27] MEDS: PANTOPRAZOLE 80 MG in Normal Saline 100 ML 10 MG IV (00:35)
[2023-08-27] MEDS: PIPERACILLIN/TAZO 3.375 GM in Normal Saline 50 ML IVPB ×2 (01:47→07:52)
[2023-08-27] MEDS: oxyCODONE 5 MG TAB 10 MG PO (02:37)
[2023-08-27] MEDS: Acetaminophen 500 MG TAB 1000 MG PO (05:37)
[2023-08-27] MEDS: Atorvastatin 20 MG TAB PO (07:46)
[2023-08-27] MEDS: Normal Saline Flush 10 ML SYR IVP ×5 (07:47→20:19)
[2023-08-27] MEDS: Sucralfate 1 GM TAB PO ×4 (07:47→20:18)
[2023-08-27 07:52] VITALS: BP 107/56; PULSE 45; RESP 16; TEMP 36.2; O2SAT 91
[2023-08-27] MEDS: Ursodiol 300 MG CAP PO ×2 (08:40→20:18)
[2023-08-27] MEDS: HYDROmorphone 2 MG/ML SYR 0.5 MG IVP (13:16)
[2023-08-27] MEDS: ACETAMINOPHEN 1,000 MG/100 ML BTL 400 MG IVPB ×2 (13:59→20:17)
--- NOTE | 2023-08-27 14:00 | PGE_ITS ---
Date of Service Date of service: 08/27/23 Time of Service: 12:30 Assessment and Plan Assessment and plan (1) Abdominal pain, RUQ: Status: Acute Assessment and plan: 68-year-old man who has at least 4 weeks of constant epigastric/right upper quadrant abdominal pain. As presumed clinically more than a week ago, this has been proven to be secondary to a duodenal ulcer. The character of his pain as well as imaging is all consistent with ulcer rather than gallbladder. He has had known gallstones for many years with them being seen on prior CT scans. There is no pericholecystic fluid or wall thickening seen on ultrasound. HIDA scan showed uptake into the gallbladder. Nothing about his pain sounds like biliary colic which would not be constant for a month. Cholecystitis has been ruled out radiographically on CT scan, on ultrasound and on HIDA scan. He has no Gonsalez sign clinically or radiographically. His LFTs are normal and he has no leukocytosis and has not had any fevers. I tried to explain, in simple terms, that imaging did show inflammation around his duodenum and we have since proven that it is a problem with endoscopic confirmation of a duodenal ulcer. Further, the character of his pain sounds more like an ulcer. Nonetheless, the patient is adamant that his gallbladder is what has been causing his pain and he was very straight with me that he cannot be discharged home because the pain is too severe to tolerate. Overall plan: - I am going to empirically start him on clarithromycin triple therapy to eradicate H. pylori if it is present. (will stop Zosyn at this point) - Twice daily PPI and sucralfate - No NSAIDs. IV Tylenol is okay. - Will continue pain medication for today and set up outpatient follow-up with his PCP for Tuesday to discuss pain management strategies. I suspect it will take some time before the pain of the ulcer goes away. Today he is requiring IV pain medication to be comfortable. It has to be mentioned that he was asleep in the chair and difficult to arouse when I came into the room. That was promptly followed by requesting needing more IV Dilaudid. - He can have outpatient follow-up with his GI/liver doctors in [facility] for second opinion about his gallbladder. It is certainly possible that his gallbladder is causing a problem, but considering all of the evidence and that we have a large duodenal ulcer as the most likely culprit, I think his gallbladder is best left alone. In the setting of known history of portal hypertension and esophageal varices he should have elective surgery done at a tertiary center if possible. Subjective Subjective Interval history since last seen: At the bedside when I entered the room the patient is sleeping. I had to shake him to wake him up. I asked if the patient is interested in going home. The patient says he cannot go home because his pain remains so severe. It is constant. It does not come and go. It never goes away. It never gets worse. He asks me at the bedside can I get more Dilaudid now? He said that his understanding is that his gallbladder is his problem. He realizes that an ulcer was found but that the gallbladder is the problem for his pain. He thinks he will not feel better until his gallbladder is removed. No fevers overnight. Exam Narrative Exam Narrative: General: Nontoxic, comfortable and interactive. He does not appear to be in pain. He has complete and thorough conversation effortlessly. Neuro: Alert and oriented x 3 Psych: Good mood and affect, his insight and understanding seems somewhat limited. Abdomen: Soft, minimally distended, diffuse tenderness in the epigastrium and right upper quadrant. No peritoneal signs. While he has tenderness in the right upper quadrant, there is no Gonsalez sign. There is a palpable bulge in the subcostal region consistent with the lobulated lobe of the liver seen on the ultrasound. Objective Last Vital Signs Temp 97.2 F L 08/27/23 07:52 Pulse 45 L 08/27/23 07:52 Resp 16 08/27/23 07:52 BP 107/56 L 08/27/23 07:52 Pulse Ox 91 L 08/27/23 07:52 Laboratory Results - last 24 hr 08/23/23 16:41 Stool H. pylori Ag Negative Time Spent with Patient Time Spent with Patient: >50 minutes Time was spent: preparing to see the patient(eg.review tests), obtaining and/or reviewing separately otained hiistory, ordering medications,tests, procedures, counseling the patient and care coordination
[2023-08-27] MEDS: metroNIDAZOLE 500 MG TAB PO ×2 (14:24→20:18)
[2023-08-27 15:23] VITALS: BP 125/51; PULSE 47; RESP 16; TEMP 36.6; O2SAT 96
[2023-08-27] MEDS: Pantoprazole 40 MG VIAL IVP (17:50)
[2023-08-27] MEDS: HYDROmorphone 2 MG TAB PO (20:18)
[2023-08-27] MEDS: Bimatoprost 0.01% 2.5 ML BTL OP (20:18)
[2023-08-27] MEDS: Clarithromycin 500 MG TAB PO (20:18)
[2023-08-27 23:30] VITALS: BP 140/67; PULSE 47; RESP 15; TEMP 36.7; O2SAT 96
[2023-08-28] MEDS: HYDROmorphone 2 MG TAB PO ×4 (00:09→23:54)
[2023-08-28] MEDS: ACETAMINOPHEN 1,000 MG/100 ML BTL 400 MG IVPB ×4 (02:02→21:01)
[2023-08-28] MEDS: Normal Saline Flush 10 ML SYR IVP ×6 (02:03→21:01)
[2023-08-28] MEDS: Pantoprazole 40 MG VIAL IVP ×2 (05:54→18:01)
[2023-08-28] MEDS: metroNIDAZOLE 500 MG TAB PO ×3 (05:54→21:00)
[2023-08-28] MEDS: Atorvastatin 20 MG TAB PO (08:14)
[2023-08-28] MEDS: Ursodiol 300 MG CAP PO ×2 (08:14→21:00)
[2023-08-28] MEDS: Sucralfate 1 GM TAB PO ×4 (08:14→21:00)
[2023-08-28] MEDS: Clarithromycin 500 MG TAB PO ×2 (08:14→21:00)
[2023-08-28] MEDS: Lisinopril 10 MG TAB PO (08:15)
[2023-08-28 08:20] VITALS: BP 124/77; PULSE 57; RESP 16; TEMP 36.3; O2SAT 95
--- NOTE | 2023-08-28 08:32 | W.PM.PROGNOT ---
Date of Service Date of service: 08/28/23 Time of Service: 11:15 Assessment and Plan Assessment and plan (1) Duodenal ulcer disease: Status: Acute Assessment and plan: 68 yo man with duodenal ulcer. Unclear if related to H Pylori. Testing thus far negative, but could be falsely negative. HD stable. Tolerating a diet. Symptoms are improving slowly. We've made major headway today by being able to completely stop IV narcotics. He has not had any since yesterday. Oral Dilaudid and Tylenol are controlling his pain and it the pain today has improved/decreased as well. PLAN: I'm optimistic he can be discharged home tomorrow. He needs to continue BID PPI for the next 2 weeks. Sucralfate QID 2 weeks Oral Abx for H Pylori eradication He can have outpatient followup with his liver physician(s) at [facility] to discuss the situation and discuss the gallbladder (which I still think is not playing a role) I'll give him a couple days worth of Oral Dilaudid at discharge, but if he needs more pain medication than that, he will need to visit with his PCP. He can do another 5 days of Tylenol and I don't think that will be an issue. Subjective Subjective Interval history since last seen: Again at the bedside(in his chair) today Alonzo is sound asleep. I had to shake him vigorously in order to get him to wake up. Once awake, he reports that he is still in a lot of pain. However, he volunteers that it's better than it was yesterday and he also states I haven't had any of the IV pain medication today. He is otherwise tolerating a diet. No fevers. Zosyn was stopped yesterday, but empiric therapy against H Pylori was started considering the circumstances. He asks Do you think I can go home tomorrow? Exam Narrative Exam Narrative: Gen: In no distress and no obvious discomfort Neuro: AxOx3 Psych: Good mood and affect, good insight and understanding Abdomen: Soft, nondistended, mild tenderness epigastrium/RUQ without peritoneal signs. B/L lower quadrants are completely not tender. Objective Last Vital Signs Temp 97.3 F L 08/28/23 08:20 Pulse 57 L 08/28/23 08:20 Resp 16 08/28/23 08:20 BP 124/77 08/28/23 08:20 Pulse Ox 95 08/28/23 08:20 Time Spent with Patient Time Spent with Patient: <25 minutes Time was spent: preparing to see the patient(eg.review tests) and counseling the patient
[2023-08-28 20:58] VITALS: BP 145/74; PULSE 67; RESP 18; TEMP 37; O2SAT 96
[2023-08-28] MEDS: Bimatoprost 0.01% 2.5 ML BTL OP (20:59)
[2023-08-29] MEDS: ACETAMINOPHEN 1,000 MG/100 ML BTL 400 MG IVPB ×2 (02:43→09:23)
[2023-08-29 02:44] VITALS: BP 137/65; PULSE 55; RESP 18; TEMP 36.8; O2SAT 96
[2023-08-29] MEDS: Pantoprazole 40 MG VIAL IVP (05:49)
[2023-08-29] MEDS: metroNIDAZOLE 500 MG TAB PO (05:50)
[2023-08-29] MEDS: Normal Saline Flush 10 ML SYR IVP ×2 (05:50→08:09)
[2023-08-29 07:20] VITALS: BP 140/62; PULSE 56; RESP 17; TEMP 36.9; O2SAT 97
[2023-08-29] MEDS: Clarithromycin 500 MG TAB PO (08:08)
[2023-08-29] MEDS: Lisinopril 10 MG TAB PO (08:08)
[2023-08-29] MEDS: Ursodiol 300 MG CAP PO (08:08)
[2023-08-29] MEDS: Sucralfate 1 GM TAB PO ×2 (08:09→11:59)
[2023-08-29] MEDS: Atorvastatin 20 MG TAB PO (08:09)
--- NOTE | 2023-08-29 12:17 | DSE_ITS ---
Date of service: 08/29/23 Time of Service: 12:17 DS: Diagnosis Discharge Diagnosis (1) Duodenal ulcer disease: Status: Acute Asessment and Plan: 68-year-old man is hemodynamically stable and continues to improve. Overall plan: Patient is on empiric H. pylori therapy and these medications have been sent to the pharmacy. His antisecretory medications prescriptions have been sent to the pharmacy. He has been given a couple of days of narcotic pain medication. He will not receive any refills. I instructed him to follow-up with his PCP if he needs more pain medication. Patient will call and schedule follow-up visit with his GI/liver doctors at [facility] on an outpatient basis. Further follow-up and management per PCP and his established GI/liver physicians at [facility]. Discharge Plan Disposition Patient Disposition: Home Condition: Improving Discharge Details Reason For Visit: Gastritis and duodenitis Admit Date/Time: 08/25/23 15:41 Admit Provider: Guille Morillo Attending Provider: Guille Morillo Primary Care Provider: George Lou Hospital Course Hospital Course: 68-year-old man has been having epigastric pain for quite some time. Home Meds and New Rx's Prescriptions: New clarithromycin 500 mg Tablet 500 mg PO BID 14 Days Qty: 28 0RF hydromorphone 2 mg Tablet 2 mg PO Q6H PRN2 Days Qty: 8 0RF sucralfate 1 gram Tablet 1 g PO AC & HS 30 Days Qty: 120 1RF metronidazole 500 mg Tablet 500 mg PO Q8H 14 Days Qty: 42 0RF Continued Centrum Silver 0.4-300-250 mg-mcg-mcg tablet 1 tab PO DAILY atorvastatin 20 mg tablet 20 mg PO DAILY Invokana 100 mg tablet 100 mg PO DAILY lisinopril 10 mg tablet 10 mg PO DAILY Lumigan 0.01 % drops 1 drp ophthalmic (eye) DAILY tramadol 50 mg tablet 50 mg PO BID PRN (Reason: pain) Qty: 6 0RF Patient Comments: pt states doesnt work Rx Instructions: Take 1 tablet twice daily as needed with food for moderate to severe pain sucralfate [Carafate] 1 gram tablet 1 g PO BID 14 Days Qty: 28 0RF ondansetron 4 mg tablet,disintegrating 4 mg PO BID 5 Days Qty: 10 0RF Changed pantoprazole 40 mg tablet,delayed release (DR/EC) 40 mg PO BID 30 Days Qty: 60 1RF Discharge Instructions Additional Instructions: Call your PCP and set up a follow-up appointment to discuss any further pain medication needs. Call your liver/GI physicians at [facility] to set up an outpatient visit with them. You must warp picker the prescriptions at the pharmacy and take them as directed for the next 2 weeks to eradicate possible bacteria. You must also take the antiacid medications to help protect your ulcer from worsening. This will help it heal. Referrals: George Lou [Primary Care Provider] - 09/13/23 Activity:: Activity as Tolerated Equipment/Supplies:: No Equipment Needed Diet:: As Tolerated Discharge Orders Discharge Orders: Discharge Order (Routine); Ordered 08/29/23 Ordered By: Man Cabrales DS: Summary Time Spent with Patient providing and/or coordinating discharge services: Greater than 30 minutes Status at Discharge Functional status at discharge: independent ambulation Overall status at discharge: patient is back to baseline Mental Status: mental status grossly normal Speech and Movement: speech and movement normal Mood: congruent mood Affect: normal affect Quality:SDOH Health Related Social Needs: No Data to Display Exam Narrative Exam Narrative: General: Nontoxic, comfortable and resting in his chair. He says he still having pretty bad pain but it is not worse. Neuro: Alert and oriented x 3 Psych: Reasonable mood and affect, reasonable insight and understanding Abdomen: Soft, nondistended, mildly tender but without peritoneal signs Psych Mental Status: mental status grossly normal Speech and Movement: speech and movement normal Mood: congruent mood Affect: normal affect DS: Data Vitals/I&O Vitals and I&O: Vital Signs Temperature 98.5 F 08/29/23 07:20 Temperature Source Tympanic 08/29/23 07:20 Pulse 56 L 08/29/23 07:20 Pulse Rhythm Regular 08/29/23 08:27 Pulse Strength Normal 08/22/23 13:07 Respiratory Rate 17 08/29/23 07:20 Respiratory Effort Normal, Non-Labored 08/29/23 08:27 Respiratory Depth Normal 08/29/23 08:27 Respiratory Pattern Tachypnea 08/29/23 08:27 Blood Pressure 140/62 08/29/23 07:20 Blood Pressure Mean 95 08/22/23 13:07 Blood Pressure Position Supine 08/22/23 13:07 Pulse Oximetry 97 08/29/23 07:20 Respiratory End-tidal CO2 33 08/24/23 13:24 Oxygen Delivery Method Room Air 08/29/23 07:20 Oxygen Flow Rate 0 08/29/23 07:20 Pain Level 8 08/29/23 09:23 Comment Patient stated this pain level is tolerable for him, and refused pain medication, stating he wants to see what happens. 08/29/23 08:28 Intake & Output 08/28/23 08/29/23 08/29/23 23:59 11:59 23:59 Intake Total 450 / 950 300 / 300 Output Total 200 / 200 300 / 300 Balance 250 / 750 0 / 0 Intake: IV 200 / 400 100 / 100 Oral 250 / 550 200 / 200 Output: Urine 200 / 200 300 / 300 Other: Urine Color Yellow Yellow Urine Appearance Clear Clear Comment pT states he has voided multiple times today. Stool Size Moderate Voiding Methods Urinal Toilet PFSH All Active Problems (Updated 08/25/23 @ 18:07 by Sari Yusuf DO) RLQ abdominal pain (Acute) Cholelithiasis (Acute) Abdominal pain, RUQ (Acute) Abdominal pain, acute, right upper quadrant (Acute) Epigastric abdominal pain (Acute) Gastritis (Acute) Esophageal reflux (Chronic) Esophagitis (Acute) Left rotator cuff tear (Acute) Red blood cell antibody positive with compatible PRBC difficult to obtain (Acute) Anemia (Chronic) Hx of caloric malnutrition (Acute) Nausea & vomiting (Acute) Melena (Acute) Duodenal ulcer disease (Acute) Gallstones (Chronic) 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) Has ultrasound done every 6 months last done 01/09/20 Esophageal varices (Chronic) Cirrhosis (Chronic) Medical History (Updated 08/25/23 @ 18:07 by Sari Yusuf DO) Drug abuse Left inguinal hernia Hepatitis C Fully treated Hx of non-insulin dependent diabetes mellitus Hx of pneumothorax History of rib fracture Hx of fracture of clavicle Scoliosis Hypertension Hepatic encephalopathy Pancytopenia Red blood cell antibody positive with compatible PRBC difficult to obtain History of GI bleed variceal Surgical History (Updated 01/23/20 @ 10:50 by Nadeen Davalos RN) Hx of basal cell carcinoma excision Hx of Achilles tendon repair History of esophagogastroduodenoscopy (EGD) (~01/16/20) multiple Previous back surgery S/P hernia repair S/P shoulder surgery Family History Mother Breast cancer Sister Breast cancer Heart disease Diabetes Sister Breast cancer Hypertension Brother Cancer leukemia Brother Heart disease Diabetes Hypertension Maternal Grandmother Heart disease Father Diabetes Hypertension Social History Smoking/Tobacco Use Status: Never Smoking risk assessment performed?: Yes Alcohol Intake: former Year quit: 2019 Drug use: Current Sobriety Substance use type: does not use and former substance user Details: 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 Housing: house Current gender identity: male Do you feel safe at home: Yes Do you feel safe in your relationship?: Yes Time Spent with Patient Time Spent with Patient: 45-69 minutes Time was spent: preparing to see the patient(eg.review tests), ordering medications,tests, procedures, indepentently interpreting results, counseling the patient and care coordination
--- NOTE | 2023-08-29 16:23 | CMDISCH_ITS ---
Date of service: 08/29/23 Time of Service: 16:23 LACE Index Scoring Tool Questions: Length of Stay (in days): 4 - 6 Was the patient admitted via the E.D.?: Yes Comorbidities: Liver or Renal Disease E.D. Visits: 2 Answers: Total Score: 14 Risk of Readmission: High Risk Care Management Discharge Plan Reason for Hospitalization: Gastritis Discharge Plan: Alonzo returned home with no new services. He transported home via private vehicle by a friend. He will follow up with his PCP and discharge plan of care, including follow up with GI provider at [facility]. Patient/Family Education Needs: Review discharge instructions and limitations, discussion of self care needs including ask me three. SDOH Health Related Social Needs: No Data to Display
== END 2023-08-29 13:13 | disposition home or self-care (01) | DRG 378 ==
LOC: ER 13:36 → MS 14:05
PROVIDERS: Surgery; Admitting Provider Surgery; Emergency Provider Student in an Organized Health Care Education/Training Program; PCP Physician Assistant; Visit Provider Surgery
PROC: 0DJ68ZZ Inspection of Stomach, Via Natural or Artificial Opening Endoscopic (ICD-10-PCS; CPT 43235; principal; 2023-08-24 12:00)
DX: K26.4 Chronic or unspecified duodenal ulcer with hemorrhage (principal); K76.6 Portal hypertension; K74.60 Unspecified cirrhosis of liver; I10 Essential (primary) hypertension; K80.20 Calculus of gallbladder without cholecystitis without obstruction; K21.9 Gastro-esophageal reflux disease without esophagitis; K29.70 Gastritis, unspecified, without bleeding; I85.10 Secondary esophageal varices without bleeding; B18.2 Chronic viral hepatitis C; E11.9 Type 2 diabetes mellitus without complications; D64.9 Anemia, unspecified; R11.2 Nausea with vomiting, unspecified; Z95.828 Presence of other vascular implants and grafts
CPT/HCPCS: 43239; 00123; 36415; 78227; 80053; 80076; 83690; 85027; 87338; 88305; 96365; 96366; 96375; 96376; 99222; 99231; 99232; 99233; 99239; 99285; 76705; 82140; 82607; 82728; 82746; 85014; 85018; 85025; J0131; J1170; J2270; J2371; J2470; J2543; J2704

== ENCOUNTER 2023-09-13 17:06 | Outpatient (REF) | payer OTHER, SELFPAY ==
[2023-09-13 18:07] LABS: HCT 39.8 % (40.0-50.0); MCH 33.7 pg (27.0-33.0); MCHC 35.2 % (32.0-36.0); MCV 96 fL (80-95); MPV 8.7 fL (8.0-11.0); Platelet Count 164 10^3/uL (130-400); RBC 4.15 10^6/uL (4.36-5.78); RDW 13.6 % (11.8-14.1); RDW-SD 47.8 fL; WBC 4.96 10^3/uL (4.4-10.8)
[2023-09-13 18:17] LABS: ALT 42 U/L (16-63); AST 40 U/L (15-37); Alkaline Phosphatase 74 U/L (46-116); Anion Gap 11.5 mmol/L (3-11); BUN 18 mg/dL (7-18); Bilirubin, Total 1.6 mg/dL (0.2-1.0); CO2 26.5 mmol/L (21.0-32.0); CREATININE 1.2 mg/dL (0.70-1.30); Calcium 9.1 mg/dL (8.5-10.1); Chloride 106 mmol/L (98-107); Estimated GFR 65.06 (mL/min/1.73m2); Glucose 135 mg/dL (74-106); Lipase 65 U/L (16-77); Potassium 3.8 mmol/L (3.5-5.1); Sodium 144 mmol/L (136-145)
== END 2023-09-13 17:07 | disposition home or self-care (01) ==
LOC: NCHCN 17:06
PROVIDERS: PCP Physician Assistant; Visit Provider Physician Assistant
DX: R10.9 Unspecified abdominal pain (principal)
CPT/HCPCS: 80053; 83690; 85027

== ENCOUNTER 2023-12-21 11:53 | Emergency (ER) | payer OTHER, SELFPAY ==
[2023-12-21 11:56] VITALS: BP 179/81; PULSE 76; RESP 14; TEMP 37.5; O2SAT 96
--- NOTE | 2023-12-21 12:00 | DI.RAD_ITS ---
Exam(s) XR SHOULDER RT COMPLETE 2+V EXAM: XR SHOULDER RT COMPLETE 2+V CLINICAL HISTORY: R shoulder injury. TECHNIQUE: 2D digital imaging was performed. Single AP view. Limited exam due to patient discomfor t. COMPARISON: CR XR SHOULDER LT COMPLETE 2+V from 11/02/2019 FINDINGS: BONES: No acute fracture is present. No bony destructive lesion is seen. Prior resection of the dist al clavicle. Degenerative changes noted at glenohumeral joint. JOINTS: No dislocation present. SOFT TISSUE: Normal. IMPRESSION: Limited exam. No acute abnormality. DATA REPOSITORY: RADIATION DOSE DELIVERED:
--- OUTSIDE RECORDS SUMMARY | 2023-12-21 12:02 | XMS_ITS | Encounter Summary ---
[place] [address] Care Team Providers Care Psychotherapist Counselor Name Role Phone George Lou Primary Care Provider [phone] Encounter Details Date Type Department Care Team (Latest Contact Info) Description 05/20/2023 Travel Social History Tobacco Use Types Packs/Day Years Used Date Smoking Tobacco: Never Smokeless Tobacco: Never Alcohol Use Standard Drinks/Week Comments Not Asked 0 (1 standard drink = 0.6 oz pur e alcohol) sober 2011 Sex and Gender Information Value Date Recorded Sex Assigned at Not on file Gender Identity Not on file Sexual Orientation Not on file documented as of this encounter Plan of Treatment Upcoming Encounters Date Type Department Care Team (Late st Contact Info) Description 2024 8:15 AM EST Office Visit Dermatology at [place] [address] [place] [address] Jin Nunez MD [address], [place] [address] documented as of this encounter Visit Diagnoses Not on filedocumented in this encounter Care Teams Psychotherapist Counselor Relationship Specialty Start Date End Date George Lou PA [address] [facility] [address] [place] [address] PCP - General Internal Medicine 11/12/22 documented as of this encounter
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
--- OUTSIDE RECORDS SUMMARY | 2023-12-21 12:03 | XMS_ITS | Encounter Summary ---
Author Organization [place] [address] Care Team Providers Care Film Editor Name Role Phone George Lou Primary Care Provider [phone] Encounter Details Date Type Department Care Team (Late st Contact Info) Description 11/12/2022 Refill Dermatology at [address] [phone] Francia Pichardo RN Social History Tobacco Use Types Packs/Day Years [...] 8:15 AM EST Office Visit Dermatology at [address] [phone] Jin Nunez MD [address] [facility], [place] [address] documented as of this encounter Visit Diagnoses Not on filedocumented in this encounter Care Teams Film Editor Relationship Specialty Start Date End Date George oLu PA [address] [place], [place] [id number] PCP - General Internal Medicine 11/12/22 documented as of this encounter
--- OUTSIDE RECORDS SUMMARY | 2023-12-21 12:03 | XMS_ITS | Encounter Summary ---
[place] [address] Care Team Providers Care Slicing Machine Feeder Name Role Phone Gina Manzo MD Primary Care Provider [phone]- [phone] Encounter Details Date Type Department Care Team (Late st Contact Info) Description 12/06/2012 7:30 AM EDT - 12/06/2012 8:00 AM EDT [place] [address] Roland Patterson MD [facility] [place] [address] VIDEO CAPSULE ENDOSCOPY (WRVU 2.24) Social History Tobacco Use Types Packs/Day Years Used Date Smoking Tobacco: Never Smokeless Tobacco: Never Alcohol Use Standard Drinks/Week Comments Not Asked 0 (1 standard drink = 0.6 oz pur e alcohol) sober 2011 Sex and Gender Information Value Date Recorded Sex Assigned at Not on file Gender Identity Not on file Sexual Orientation Not on file documented as of this encounter Last Filed Vital Signs Vital Sign Reading Time Taken Comments Blood Pressure 100/46 12/06/2012 4:10 AM EDT rn notified Pulse 64 12/06/2012 4:10 AM EDT Temperature 36.4 ??C (97.5 ??F) 12/06/2012 4 :10 AM EDT Respiratory Rate 20 12/06/2012 4:10 AM EDT Oxygen Saturation 93% 12/06/2012 4:1 0 AM EDT Inhaled Oxygen Concentration - - Weight 89.7 kg (197 lb 12 oz) 3 1:00 AM EDT Height 161.3 cm (5' 3.5) 12/03/2012 1: 00 AM EDT Body Mass Index 34.48 12/03/2012 1:00 AM EDT documented in this encounter Discharge Instructions * Patient Instructions* Cory Tellez - 12/07/2012 11:56 AM EDT Patient Instructions on Discharge to Home Why you were hospitalized - bleeding from your gastrointestinal tract Call your doctor or seek medical attention if you develop the following - chest pain, shortness of breath, passing out, feeling dizzy upon standing, passing out, diarrhea, constipation lasting longerthan 2 days, fevers (temperature over 100.3), chills, abdominal pain, vomiting, difficulty or discomfort when urinating, bloody or black bowel movements, or any other acute or concerning symptom. Activity level - as tolerated Diet - low in sodium, heart healthy Driving - per previous; none after taking sedating medications such as trazodone Shower/Bath - per previous Other Important Instructions -It is very important to take your medications as prescribed and follow-up with your primary care physician and dye reel operator helper. You will need a blood test the day you see your primary care provider (12/14). -Other Instructions: Avoid all medications known as NSAIDS (non-steroidal anti- inflammatory drugs),as these medications may predispose to more bleeding. These include products with ibuprofen (Motrin, Advil, etc), naproxen (Naprosyn, Aleve), aspirin for pain (Excedrin, Anacin, etc). Many over the counter cough/cold remedies contain these products, so check the label before using. Follow-up Appointments You have follow-up scheduled with Dr. GINA MANZO MD at [address] [place] [address] on December 14 at 10:45 am. Future Appointments Date Time Provider Department Center 12/28/2012 8:45 AM 2, Ultrasound Rm [facility] None 12/28/2012 11:30 AM Paty Pedraza APRN [facility] Your Discharge Medication List Unchanged COMMUNICATION ARTS LECTURER meds that are or will be resumed Medication Status Sig Dispense Refill ??? multivitamin (THERAGRAN) tablet Active Take 1 tablet by mouth daily. Changed COMMUNICATION ARTS LECTURER meds Medication Status Sig Dispense Refill ??? nadolol (CORGARD) 20 mg tablet Active Take 1 tablet by mouth daily. 30 tablet 0 ??? folic acid (FOLVITE) 1 mg tablet Active Take 1 tablet by mouth daily. 30 tablet 0 ??? pantoprazole (PROTONIX) 40 mg tablet Active Take 1 tablet by mouth daily. 30 tablet 0 New prescriptions Medication Status Sig Dispense Refill ??? ciprofloxacin (CIPRO) 500 mg tablet Active Take 1 tablet by mouth 2 times daily for 5 doses. 6 tablet 0 ??? ondansetron (ZOFRAN) 4 mg tablet Active Take 1 tablet by mouth every 8 hours as needed. 20 tablet 0 ??? traZODone (DESYREL) 50 mg tablet Active Take 1 tablet by mouth nightly as needed for Sleep. 20 tablet 0 COMMUNICATION ARTS LECTURER meds that are DCed or will be DCed Medication Status Sig Dispense Refill ??? buPROPion (WELLBUTRIN XL) 300 mg 24 hr tablet Active Take 300 mg by mouth every morning. ??? spironolactone (ALDACTONE) 50 mg tablet Active Take 50 mg by mouth daily. ??? escitalopram (LEXAPRO) 20 mg tablet Active Take 10 mg by mouth daily. ??? naproxen (NAPROSYN) 250 mg tablet Active Take 500 mg by mouth as needed. ??? pantoprazole (PROTONIX) 40 mg tablet Discontinued Take 40 mg by mouth daily. ??? nadolol (CORGARD) 20 mg tablet Discontinued Take 20 mg by mouth daily. ??? folic acid (FOLVITE) 1 mg tablet Discontinued Take 1 mg by mouth daily. Your Inpatient Medical Team at [facility] Name(s) of your inpatient provider(s): Drs. Andres Thompson, Cory Tellez, Ernesto Cardona, Gustabo Garza For questions regarding issues relating to your hospitalization on the Hospital Medicine Service, please contact your inpatient physician through the [facility] National Facilities Manager [phone]. Issues after hours and on weekends will be handled by the Hospitalist staff on-call. Your Primary Care Provider GINA MANZO MD [phone] documented in this encounter Medications at Time of Discharge Medication Sig Dispensed Refills Start Date End Date multivitamin (THERAGRAN) tablet Take 1 tablet by mouth daily. ciprofloxacin (CIPRO) 500 mg tablet Take 1 tablet by mouth 2 times daily for 5 doses. 6 tablet 0 12/07/2012 12/10/2012 nadolol (CORGARD) 20 mg tablet Take 1 tablet by mouth daily. 30 tablet 0 12/07/2012 11/20/2021 ondansetron (ZOFRAN) 4 mg tablet Take 1 tablet by mouth every 8 hours as needed. 20 tablet 0 12/07/2012 11/20/2021 folic acid (FOLVITE) 1 mg tablet Take 1 tablet by mouth daily. 30 tablet 0 12/07/2012 11/20/2021 traZODone (DESYREL) 50 mg tablet Take 1 tablet by mouth nightly as needed for Sleep. 20 tablet 0 12/07/2012 11/20/2021 pantoprazole (PROTONIX) 40 mg tablet Take 1 tablet by mouth daily. 30 tablet 0 12/07/2012 11/20/2021 documented as of this encounter Progress Notes * Cory Tellez - 12/07/2012 12:33 PM EDT Hospital Medicine - Attending Day of Discharge Documentation Discharge diagnosis Active Hospital Problems Diagnosis ??? GI bleed Resolved Hospital Problems Diagnosis Date Resolved No resolved problems to display. Secondary Issues Active Non-Hospital Problems Diagnosis ??? Cirrhosis ??? Alcohol abuse, episodic drinking behavior I have personally seen and examined the patient and they are ready for discharge. H+H are stable. GI will call patient tomorrow c/video capsule endoscopy results and expedited f/u appt. He also has PCP f/u for 1 week's time. I called his PCP and left message on her VM as she is out today, to communicate our recommendations. I spent >30 minutes (Day of Discharge Code 31029) involved in the final examination of the patient, discussion of the hospital stay, instructions for continuing care to all relevant caregivers, and preparation of discharge records, prescriptions and referral forms. Plans Discharge to home Follow-up scheduled with GI (they will call to expedite appt), PCP Please see the Discharge Summary for complete details of any medication changes and additional plans. * Saniya Palmer RN - 12/07/2012 12:19 PM EDT Pt discharging to home with prescriptions sent per , AVS given to pt and reviewed, questions asked and answered. * Nohemy Wallace DT - 12/07/2012 12:12 PM EDT Nutrition Services - Initial Note Alonzo Urbina : 1955 AGE: 57 y.o. Active Hospital Problems Diagnosis ??? GI bleed Reason for Nutrition Intervention: Transfer from ICU Diet Order: Regular Appetite: good Food allergies: none Chewing/Swallowing difficulty: none Height: (cm) 161.3 Weight: (kg) 89.7 12/02/12 BMI: 34.1 Labs: Albumin 2.8 12/06/12 Assessment: Patient denies need for nutrition education, however we did discuss low albumin and importance of protein foods. Recommend 2gmNa diet as patient has history of cirrhosis. Patient denies need for Low sodium education as he states that he follows a low sodium diet at home. Nutrition Plan: Recommend 2gmNa diet. Monitor weight. Encourage low sodium po intake. Support and encouragement provided. Nutrition services to follow weekly thru hospital course unless consulted in the interim. GERRY HARRIS * Cory Tellez - 12/06/2012 8:35 AM EDT [facility] - Attending Daily Progress Note Date of Admission: 12/02/2012 Active and Resolved Problems This Admission: Active Hospital Problems Diagnosis ??? GI bleed Resolved Hospital Problems Diagnosis Date Resolved No resolved problems to display. Other Past Medical History: Active Non-Hospital Problems Diagnosis ??? Cirrhosis ??? Alcohol abuse, episodic drinking behavior History reviewed. No pertinent past medical history. 24 Hour Events/Subjective: H+H, vitals stable [place] negative For capsule endoscopy today to eval SB Nadolol resumed yesterday Denies abdominal pain, further bleeding, vomiting Has some intermittent nausea Better spirits today Slept well c/trazodone last night Physical Exam: Last value Range last 24 hrs Temperature Temp: 36.8 ??C (98.2 ??F) Temp: [36.1 ??C (97 ??F)-36.9 ??C (98.4 ??F)] Heart Rate Heart Rate: 67 Heart Rate: [53-79] Blood Pressure BP: 113/63 mmHg BP: (94-114)/(46-72) Respiratory Rate Resp: 19 Resp: [16-22] SpO2 SpO2: 99 % SpO2: [93 %-100 %] I/O last 3 completed shifts: In: 3200 [I.V.:3200] Out: - Patient Vitals for the past 168 hrs: Weight 12/03/12 0100 89.7 kg (197 lb 12 oz) General - NACPD, A+O x 3, interactive, better spirits today HEENT - NC/AT, MMM, no sclericterus CV - RRR S1 S2, no m/r/g L - CTAB, no w/r/r GI - Soft, NT, ND, NABS Ext - no c/c/e Neuro - A+O x 3, no asterixis Laboratory: Recent Results (from the past 24 hour(s)) HEMOGLOBIN AND HEMATOCRIT, BLOOD Component Value Range Hemoglobin 8.9 (*) 13.7 - 17.5 gm/dL Hematocrit 27.3 (*) 40.0 - 51.0 % CBC (WITH DIFF) Component Value Range WBC 2.2 (*) 4.0 - 10.0 x10(3)/mcL RBC 2.90 (*) 4.63 - 6.08 x10(6)/mcL Hemoglobin 8.4 (*) 13.7 - 17.5 gm/dL Hematocrit 25.6 (*) 40.0 - 51.0 % MCV 88.3 79.0 - 92.0 fL MCH 29.0 25.6 - 32.2 pg MCHC 32.8 32.0 - 36.5 gm/dL Platelets 98 (*) 145 - 370 x10(3)/mcL RDWSD 45.1 35.0 - 46.0 fL RDWCV 14.7 (*) 10.9 - 14.4 % MPV 9.2 9.0 - 12.0 fL BASIC METABOLIC PANEL (NON-FASTING) Component Value Range Glucose Lvl 126 60 - 199 mg/dL BUN 8 (*) 10 - 20 mg/dL Creatinine 0.84 0.80 - 1.50 mg/dL Sodium 140 135 - 145 mmol/L Potassium 3.9 3.5 - 5.0 mmol/L Chloride 113 (*) 98 - 107 mmol/L CO2 22 22 - 31 mmol/L Anion Gap 5 5 - 15 mmol/L Calcium 7.8 (*) 8.5 - 10.5 mg/dL Estimated GFR >60 >=60 HEPATIC FUNCTION PANEL Component Value Range Total Protein 5.1 (*) 6.4 - 8.3 gm/dL Albumin 2.8 (*) 3.2 - 5.2 gm/dL AST 258 (*) 0 - 39 unit/L ALT 101 (*) 0 - 55 unit/L Alk Phos 51 40 - 120 unit/L Total Bilirubin 0.6 0.2 - 1.3 mg/dL Bili, Direct 0.3 0.0 - 0.3 mg/dL DIFFERENTIAL, AUTOMATED Component Value Range Neutrophils % 44.3 34.0 - 71.0 % Neutr Abs (ANC) 0.99 (*) 1.50 - 6.30 x10(3)/mcL Lymphocytes % 37.9 19.0 - 53.0 % Lymphocytes Abs 0.8 (*) 1.0 - 3.6 x10(3)/mcL Monocytes % 12.1 4.0 - 13.0 % Monocyte Abs 0.3 0.2 - 1.0 x10(3)/mcL Eosinophils % 4.9 0.0 - 7.0 % Eosinophils Abs 0.1 0.0 - 0.5 x10(3)/mcL Basophils % 0.4 0.0 - 2.0 % Basophils Abs 0.0 0.0 - 0.2 x10(3)/mcL Immature Gran % 0.40 0.00 - 0.66 % Madonna Gran Abs 0.01 0.00 - 0.05 x10(3)/mcL Ammonia - 30 Radiology/Studies/Procedures: 12/05 Colonoscopy - Findings: The perianal and digital rectal examinations were normal. The terminalileum appeared normal. There was adherent brown material in the ascending and proximal transverse colon that could not be completely washed away, so small mucosal based lesions could have been missed. However, the underlying visualized mucosa appeared normal. There were no lesions in the distal transverse, descending and rectosigmoid colon. Mucosa was diffusely midly friable. Impression: - The examined portion of the ileum was normal. - Suboptimal prep in the right colon, but no lesions identified to explain blood loss. Somewhat friable mucosa throughout the colon, may be communications representative of por kee hypertension. Recommendation: - Although possible that small lesions were missed (e.g., AVMs), would proceed with capsule endoscopy as next step to evaluate for significant lesions. 12/03 EGD - Impression: - Normal oropharynx. GIEV, old scaring from previous banding in distal esophagus. - Moderate portal hypertensive gastropathy diffuse throughout stomach. No active oozing or bleeding. - Normal examined duodenum. Recommendation: -No stigmata of recent bleeding, patient with moderate gastropathy may explain chronic anemia (re-start nonselective BB therapy, titrate to HR reduction by 25% as sx tolerate). Ensure continuation on discharge. If he has clinical signs of ongoing bleeding, will warrant further work up to identify source with repeat colonoscopy, VCE as his EGD examdoes not explain acute decline in Hb. -Continue PPI QD -No NSAIDs -Stop octreotide gtt - Complete CFT (can transition to oral Cipro) antibiotic therapy for total 5 days -Continue to monitor Hb, bowel movements, transfuse PRBC -Ok to advance diet to clears as tolerated, if Hb stable can advance further in AM Assessment: Alonzo Urbina is a 57 y.o. 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 No bleeding since admission. S/p 2 u pRBCs since admit and now hemodynamically stable c/stable H+H. Issues and Plan of Care: GI Bleed - appreciate GI following. Video capsule endoscopy today. Continue PPI given portal htn gastropathy and erosions. Back on nadolol for portal hypertension/sequelae. Continue 7 days of abx to prevent bacterial translocation. Monitor clinically for rebleed including exam, serial H+H, platelets/coags, 2 large bore IV, IVF with close attention to his volume status. Avoid NSAIDs. Resuming nadolol cautiously with close monitoring of BP and HR. Cirrhosis - given lack of h/o ascites and concerns for hemodynamics, will not dose spironolactone now. Monitor closely. LFTs trending down. Continue nadolol. Insomnia - cont trazodone Systems' Issues -VTE ppx c/SCDs given GI bleed. -Pager to contact 01/11 -Continue to provide emotional support to pt and faraz -Code status - Full; Elissa ruth ([phone]) is medical decision maker. I updated her today at bedside and spent >40 minutes with them today. -Disposition - pending medical improvement * Julienne Carlisle RN - 12/05/2012 5:16 PM EDT Initial Assessment/CRC Note Office of Care Management Alonzo Urbina 1955 [address] [facility] [address] Late Entry eDH reviewed. Report received from Dr. Tellez. Patient reviewed in multidisciplinary discharge rounds. S: This place is falling apart in my opinion. O: Introduced self and CRC role to patient and carlos Bowers; patient agrees to CRC services; pt currently lives with Elissa in own home in [place], [place]. CRC contact information left on patient white board. Advance Directives: Scanned in to e-. Hospital course: admitted for GIB. Allergies Allergen Reactions ??? Ambien (Zolpidem) Other (See Comments) Drove his car while sleeping Current Functional Status/Mobility: Independent. Baseline Functional Status/Mobility: Denies any functional deficits. Current Home Services/Use of DME vendor: none. PCP: GINA MANZO MD Financial Concerns: insured via Medicare A,B and D via [employer] and [place] [employer]. Transportation: Carlos will transport pt home. Anticipated Services at Discharge: will require re-assessment closer to time of d/c. Social Support Patient has given [facility] permission for carlos Parker ( cell [phone])to be contacted. A: medical plan still evolving. P: This investment underwriter or colleague from the Office of Care Management will continue to follow patient to assist w/ changing needs and collaborate w/ pt, medical team and family to formulate a plan for discharge; CRC may be reached on beeper [phone] or by leaving a voice mail message at [phone]. [phone]. See Care Management note in eDH for detailed VNA/DME information upon discharge. Medical Team: Hospitalist Service, pager [phone]. Julienne Carlisle, RN, MSN, [facility] Clinical Motion Designer Office of Care Management Pager [phone] Phone: [phone] * Socorro Lomeli RN - 12/05/2012 3:09 PM EDT Nursing Note: Patient frustrated with repeated requests at start of shift: A) unspecific colonoscopy time and b) state of bathroom. Paged to endoscopy and then GI Fellow with unknown specific time, patient requested to speak with GI and Patient Relations. Number to pt relations given to him, and a while later he stated no one answered (circa [phone]); and GI was paged to come to speak with him. Housekeeping in and cleaned his bathroom. He then wanted to speak with someone in authority, other than a nurse. Dr Tellez paged and she came up to speak with him. Per Dr Tellez, pt's colonoscopy scheduled for 1330. [facility] called circa 1000 for report and stated they would premiss him for 1030; transpo came to pick him up at 1015. Mood much improved from start of shift. He returned from endo circa 1300, somewhat sleepy. 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 EGD 12/03: GIEV, old scaring from previous banding in distal esophagus. - Moderate portal hypertensive gastropathy diffuse throughout stomach. No active oozing or bleeding. - Normal examined duodenum. [place] 12/05: poor prep with no evidence of active bleeding (see full report in [facility]) Active GI Problems: Patient Active Problem List Diagnosis Code ??? Cirrhosis 571.5 ??? Alcohol abuse, episodic drinking behavior 305.02 ??? GI bleed 578.9 Current meds: ??? nadolol Active 20 mg Oral Daily ??? ciprofloxacin Active 500 mg Oral BID ??? potassium chloride Completed 40 mEq Oral Once ??? potassium chloride Completed 40 mEq Oral Once ??? DISCONTD: potassium chloride Discontinued 10 mEq Intravenous Q1H ??? sodium chloride 0.9 % Active 5 mL Intravenous Q12H ??? esomeprazole Active 40 mg Intravenous Daily Physical exam: Filed Vitals: 12/05/12 1228 BP: 105/61 Pulse: 73 Temp: Resp: 18 Gen: NAD, AAOx3 Heent: NC/AT, anicteric sclera, MMM, no erythema or exudate. CV: RRR, +s1/s2, no murmur, rub or gallop Lungs: CTAB without wheeze, rale or rhonchi Abd: soft, NT, ND, NABS. Ext: WWP, no CCE Labs: CBC Lab Results Component Value Date WBC 2.5* 12/05/2012 Hemoglobin 8.0* 12/05/2012 Hematocrit 24.3* 12/05/2012 Platelets 98* 12/05/2012 Lab Results Component Value Date Sodium 142 12/05/2012 Potassium 3.6 12/05/2012 Chloride 113* 12/05/2012 CO2 20* 12/05/2012 BUN 14 12/05/2012 Creatinine 0.92 12/05/2012 Glucose Lvl 135 12/05/2012 LFT's Lab Results Component Value Date Alk Phos 57 12/04/2012 AST 364* 12/04/2012 Albumin 3.3 12/04/2012 Bili, Direct 0.6* 12/04/2012 Total Bilirubin 1.1 12/04/2012 ALT 108* 12/04/2012 Total Protein 5.9* 12/04/2012 Impression/Recommendations: Alonzo Urbina is a 57 y.o. 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 [place] was poor prep with evidence of active bleed but limited. -2 large bore PIVs at all times, transfuse PRBC (do not exceed 9, for concern for worsening portal pressures) -Avoid NSAIDs -restart Nadolol and will need on discharge -If H/H remain stable and not requiring transfusion, plan for outpatient VCE #Cirrhosis: No known hx of ascites, encephalopathy -restart nadolol -euvolemic not on diuretics Recommendations reviewed with Primary team. Ariana Austin MD Gastroenterology Fellow I have seen and evaluated the patient with Dr. Austin. I have reviewed the fellow's history during the encounter and I agree with the details as written above. My physical examination confirms theabove findings. The assessment and plan were formulated in discussion with me at the time of the encounter and I agree with them as documented. Ernesto Cardona MD, MS safety deposit clerk Section of Gastroenterology and Hepatology * Francia Nichole RN - 12/05/2012 12:40 PM EDT Report called to FREDY Niño. * Cory Tellez - 12/05/2012 8:25 AM EDT [facility] - Attending Daily Progress Note Date of Admission: 12/02/2012 Active and Resolved Problems This Admission: Active Hospital Problems Diagnosis ??? GI bleed Resolved Hospital Problems Diagnosis Date Resolved No resolved problems to display. Other Past Medical History: Active Non-Hospital Problems Diagnosis ??? Cirrhosis ??? Alcohol abuse, episodic drinking behavior History reviewed. No pertinent past medical history. 24 Hour Events/Subjective: H+H, vitals stable Prepped for colo Expressed a variety of frustrations today including being frustrated over not knowing time of colo today; Nursing and I shared in his frustrations and talked c/GI - appt this pm relayed to pt. I addressed the entirety of his concerns at bedside along with his fiance, Elissa, several times throughout the day today, again. Physical Exam: Last value Range last 24 hrs Temperature Temp: 36.5 ??C (97.7 ??F) Temp: [36.5 ??C (97.7 ??F)-36.9 ??C (98.4 ??F)] Heart Rate Heart Rate: 70 Heart Rate: [60-75] Blood Pressure BP: 109/58 mmHg BP: (101-118)/(50-61) Respiratory Rate Resp: 18 Resp: [18-20] SpO2 SpO2: 96 % SpO2: [96 %-99 %] I/O last 3 completed shifts: In: 4010 [P.O.:4000; I.V.:10] Out: - Patient Vitals for the past 168 hrs: Weight 12/03/12 0100 89.7 kg (197 lb 12 oz) General - NACPD, A+O x 3, interactive, seems forgetful and repeats himself ocassionally frustrated/agitated/uses profane language HEENT - NC/AT, MMM, no sclericterus CV - RRR S1 S2, no m/r/g L - CTAB, no w/r/r GI - Soft, NT, ND, NABS Ext - no c/c/e Neuro - A+O x 3, no asterixis Laboratory: Recent Results (from the past 24 hour(s)) HEMOGLOBIN AND HEMATOCRIT, BLOOD Component Value Range Hemoglobin 7.7 (*) 13.7 - 17.5 gm/dL Hematocrit 23.9 (*) 40.0 - 51.0 % PROTHROMBIN TIME Component Value Range PT 16.2 (*) 12.0 - 15.0 sec INR 1.3 (*) 0.9 - 1.1 HEPATIC FUNCTION PANEL Component Value Range Total Protein 5.9 (*) 6.4 - 8.3 gm/dL Albumin 3.3 3.2 - 5.2 gm/dL AST 364 (*) 0 - 39 unit/L ALT 108 (*) 0 - 55 unit/L Alk Phos 57 40 - 120 unit/L Total Bilirubin 1.1 0.2 - 1.3 mg/dL Bili, Direct 0.6 (*) 0.0 - 0.3 mg/dL BASIC METABOLIC PANEL (NON-FASTING) Component Value Range Glucose Lvl 118 60 - 199 mg/dL BUN 20 10 - 20 mg/dL Creatinine 0.94 0.80 - 1.50 mg/dL Sodium 142 135 - 145 mmol/L Potassium 3.0 (*) 3.5 - 5.0 mmol/L Chloride 110 (*) 98 - 107 mmol/L CO2 20 (*) 22 - 31 mmol/L Anion Gap 12 5 - 15 mmol/L Calcium 7.9 (*) 8.5 - 10.5 mg/dL Estimated GFR >60 >=60 HEMOGLOBIN AND HEMATOCRIT, BLOOD Component Value Range Hemoglobin 8.4 (*) 13.7 - 17.5 gm/dL Hematocrit 25.8 (*) 40.0 - 51.0 % APTT Component Value Range PTT 31 25 - 35 sec HEMOGLOBIN AND HEMATOCRIT, BLOOD Component Value Range Hemoglobin 7.6 (*) 13.7 - 17.5 gm/dL Hematocrit 22.9 (*) 40.0 - 51.0 % CBC (WITH DIFF) Component Value Range WBC 2.5 (*) 4.0 - 10.0 x10(3)/mcL RBC 2.79 (*) 4.63 - 6.08 x10(6)/mcL Hemoglobin 8.0 (*) 13.7 - 17.5 gm/dL Hematocrit 24.3 (*) 40.0 - 51.0 % MCV 87.1 79.0 - 92.0 fL MCH 28.7 25.6 - 32.2 pg MCHC 32.9 32.0 - 36.5 gm/dL Platelets 98 (*) 145 - 370 x10(3)/mcL RDWSD 45.2 35.0 - 46.0 fL RDWCV 14.5 (*) 10.9 - 14.4 % MPV 9.3 9.0 - 12.0 fL BASIC METABOLIC PANEL (NON-FASTING) Component Value Range Glucose Lvl 135 60 - 199 mg/dL BUN 14 10 - 20 mg/dL Creatinine 0.92 0.80 - 1.50 mg/dL Sodium 142 135 - 145 mmol/L Potassium 3.6 3.5 - 5.0 mmol/L Chloride 113 (*) 98 - 107 mmol/L CO2 20 (*) 22 - 31 mmol/L Anion Gap 9 5 - 15 mmol/L Calcium 7.7 (*) 8.5 - 10.5 mg/dL Estimated GFR >60 >=60 DIFFERENTIAL, AUTOMATED Component Value Range Neutrophils % 49.9 34.0 - 71.0 % Neutr Abs (ANC) 1.23 (*) 1.50 - 6.30 x10(3)/mcL Lymphocytes % 34.8 19.0 - 53.0 % Lymphocytes Abs 0.9 (*) 1.0 - 3.6 x10(3)/mcL Monocytes % 10.5 4.0 - 13.0 % Monocyte Abs 0.3 0.2 - 1.0 x10(3)/mcL Eosinophils % 3.6 0.0 - 7.0 % Eosinophils Abs 0.1 0.0 - 0.5 x10(3)/mcL Basophils % 0.8 0.0 - 2.0 % Basophils Abs 0.0 0.0 - 0.2 x10(3)/mcL Immature Gran % 0.40 0.00 - 0.66 % Madonna Gran Abs 0.01 0.00 - 0.05 x10(3)/mcL Chemistry pending Ammonia - 30 Radiology/Studies/Procedures: 12/03 EGD - Impression: - Normal oropharynx. GIEV, old scaring from previous banding in distal esophagus. - Moderate portal hypertensive gastropathy diffuse throughout stomach. No active oozing or bleeding. - Normal examined duodenum. Recommendation: -No stigmata of recent bleeding, patient with moderate gastropathy may explain chronic anemia (re-start nonselective BB therapy, titrate to HR reduction by 25% as sx tolerate). Ensure continuation on discharge. If he has clinical signs of ongoing bleeding, will warrant further work up to identify source with repeat colonoscopy, VCE as his EGD examdoes not explain acute decline in Hb. -Continue PPI QD -No NSAIDs -Stop octreotide gtt - Complete CFT (can transition to oral Cipro) antibiotic therapy for total 5 days -Continue to monitor Hb, bowel movements, transfuse PRBC -Ok to advance diet to clears as tolerated, if Hb stable can advance further in AM Assessment: Alonzo Urbina is a 57 y.o. 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 No bleeding since admission. S/p 2 upRBCs since admit and now hemodynamically stable c/stable H+H. Issues and Plan of Care: GI Bleed - appreciate GI following. Colonoscopy today. Continue PPI given portal htn gastropathy and erosions. Held nadolol/spironolactone for now given bleed and concerns for hemodynamics. Continue 7 days of abx to prevent bacterial translocation. Monitor clinically for rebleed including exam, serial H+H, platelets/coags, 2 large bore IV, IVF with close attention to his volume status. Avoid NSAIDs. Resuming nadolol cautiously with close monitoring of BP and HR. Cirrhosis - given lack of h/o ascites and concerns for hemodynamics, will not dose spironolactone now. Monitor closely. Will resume nadolol as hemodynamics improve/allow. Repeat LFTs. Systems' Issues -VTE ppx c/SCDs given GI bleed. -Pager to contact 01/11 -Continue to provide emotional support to pt and fiance -Code status - Full; Elissa ruth ([phone]) is medical decision maker. I updated her today at bedside and spent >40 minutes with them today. -Disposition - pending medical improvement * Estela Barba, PT - 12/04/2012 2:47 PM EDT Physical therapy Referral received, Attempted initial visit, pt occupied with bathroom Will return tomorrow for evaluation ESTELA BARBA, PT * Cory Tellez - 12/04/2012 9:02 AM EDT [facility] [place] Medicine - Attending Daily Progress Note Date of Admission: 12/02/2012 Active and Resolved Problems This Admission: Active Hospital Problems Diagnosis ??? GI bleed Resolved Hospital Problems Diagnosis Date Resolved No resolved problems to display. Other Past Medical History: Active Non-Hospital Problems Diagnosis ??? Cirrhosis ??? Alcohol abuse, episodic drinking behavior History reviewed. No pertinent past medical history. 24 Hour Events/Subjective: Had 2 BMs black c/streaks of adrianna blood in latter. H+H 8.2-->8.2-->8.0. Vitals stable. C/o several weeks of intermittent rectal pain c/BMs. Has persistent nausea but no vomiting. Otherwise denies chest pain, abdominal pain, fever, chills, headache. Remainder of ROS was negative. Physical Exam: Last value Range last 24 hrs Temperature Temp: 36.9 ??C (98.4 ??F) Temp: [36.4 ??C (97.5 ??F)-37.2 ??C (99 ??F)] Heart Rate Heart Rate: 72 Heart Rate: [72-84] Blood Pressure BP: 106/56 mmHg BP: (90-122)/(51-68) Respiratory Rate Resp: 20 Resp: [14-24] SpO2 SpO2: 98 % SpO2: [86 %-100 %] I/O last 3 completed shifts: In: 968 [I.V.:618; Blood:350] Out: 1225 [Urine:1225] Patient Vitals for the past 168 hrs: Weight 12/03/12 0100 89.7 kg (197 lb 12 oz) General - NACPD, A+O x 3, interactive, seems forgetful and repeats himself ocassionally HEENT - NC/AT, MMM, no sclericterus CV - RRR S1 S2, no m/r/g L - CTAB, no w/r/r GI - Soft, NT, ND, NABS Rectal - external hemorrhoid, black stool in vault, no adrianna blood Ext - no c/c/e Neuro - A+O x 3, no asterixis Laboratory: Recent Results (from the past 24 hour(s)) PREPARE RBC Component Value Range Dispensed? Yes HEMOGLOBIN AND HEMATOCRIT, BLOOD Component Value Range Hemoglobin 8.2 (*) 13.7 - 17.5 gm/dL Hematocrit 25.1 (*) 40.0 - 51.0 % HEMOGLOBIN AND HEMATOCRIT, BLOOD Component Value Range Hemoglobin 8.2 (*) 13.7 - 17.5 gm/dL Hematocrit 24.5 (*) 40.0 - 51.0 % AMMONIA Component Value Range Ammonia 30 16 - 60 mcmol/L HEMOGLOBIN AND HEMATOCRIT, BLOOD Component Value Range Hemoglobin 8.0 (*) 13.7 - 17.5 gm/dL Hematocrit 23.8 (*) 40.0 - 51.0 % Chemistry pending Ammonia - 30 Radiology/Studies/Procedures: 12/03 EGD - Impression: - Normal oropharynx. GIEV, old scaring from previous banding in distal esophagus. - Moderate portal hypertensive gastropathy diffuse throughout stomach. No active oozing or bleeding. - Normal examined duodenum. Recommendation: -No stigmata of recent bleeding, patient with moderate gastropathy may explain chronic anemia (re-start nonselective BB therapy, titrate to HR reduction by 25% as sx tolerate). Ensure continuation on discharge. If he has clinical signs of ongoing bleeding, will warrant further work up to identify source with repeat colonoscopy, VCE as his EGD examdoes not explain acute decline in Hb. -Continue PPI QD -No NSAIDs -Stop octreotide gtt - Complete CFT (can transition to oral Cipro) antibiotic therapy for total 5 days -Continue to monitor Hb, bowel movements, transfuse PRBC -Ok to advance diet to clears as tolerated, if Hb stable can advance further in AM Assessment: Alonzo Urbina is a 57 y.o. 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 No bleeding since admission. S/p 2 upRBCs since admit and now hemodynamically stable c/stable H+H. Issues and Plan of Care: GI Bleed - appreciate GI following. Clears for now, prepping for colo for tomorrow. Continue PPI given portal htn gastropathy and erosions. Held nadolol/spironolactone for now given bleed and concerns for hemodynamics. Continue 7 days of abx to prevent bacterial translocation. Monitor clinically for rebleed including exam, serial H+H, platelets/coags, 2 large bore IV, IVF with close attention to his volume status. Avoid NSAIDs. Cirrhosis - given lack of h/o ascites and concerns for hemodynamics, will not dose spironolactone now. Monitor closely. Will resume nadolol as hemodynamics improve/allow. Repeat LFTs. Systems' Issues -VTE ppx c/SCDs given GI bleed. -Pager to contact 01/11 -Code status - Full; Elissa ruth ([phone]) is medical decision maker. I updated her today at his request. -Disposition - pending medical improvement * Juliette Barreto, MELY - 12/04/2012 1:18 AM EDT Pt had a moderate loose BM at 0100. Black with streaks of adrianna red blood. * Cleopatra Camara, MELY - 12/03/2012 5:54 PM EDT [facility] accompanied by transportation staff. A&Ox4. VSS. Oriented tonew room. Pt reports frustration and is uncooperative with requests to use call light for assistance and to save BMs for staff to visualize. Black formed BM x [address] Tellez contacted to discuss change in mood/behavior; will continue to monitor for changes in mental status or vital signs. * Cory Tellez - 12/03/2012 8:47 AM EDT [facility] Medicine - Attending Daily Progress Note Date of Admission: 12/02/2012 Active and Resolved Problems This Admission: Active Hospital Problems Diagnosis ??? GI bleed Resolved Hospital Problems Diagnosis Date Resolved No resolved problems to display. Other Past Medical History: Active Non-Hospital Problems Diagnosis ??? Cirrhosis ??? Alcohol abuse, episodic drinking behavior History reviewed. No pertinent past medical history. 24 Hour Events/Subjective: No further GI bleed since last night. EGD no active bleeding. Expresses frustration at having multiple episodes of GI bleeding without localized source. Denies n/v, abdominal pain, notes rectal pain from using bathroom so much since bleeding began. Denies CP, SOB, HAYLIE, f/c. Physical Exam: Last value Range last 24 hrs Temperature Temp: 36.8 ??C (98.2 ??F) Temp: [36.7 ??C (98.1 ??F)-37.1 ??C (98.8 ??F)] Heart Rate Heart Rate: 78 Heart Rate: [78-102] Blood Pressure BP: 107/68 mmHg BP: (97-126)/(48-105) Respiratory Rate Resp: 20 Resp: [16-26] SpO2 SpO2: 99 % SpO2: [95 %-100 %] I/O last 3 completed shifts: In: 355 [I.V.:5; Blood:350] Out: 475 [Urine:475] Patient Vitals for the past 168 hrs: Weight 12/03/12 0100 89.7 kg (197 lb 12 oz) General - NACPD, A+O x 3, pleasant, interactive HEENT - NC/AT, MMM, no sclericterus CV - RRR S1 S2, no m/r/g L - CTAB, no w/r/r GI - Soft, NT, ND, NABS Ext - no c/c/e Neuro - A+O x 3, no asterixis Laboratory: Recent Results (from the past 24 hour(s)) CBC (WITH DIFF) Component Value Range WBC 5.9 4.0 - 10.0 x10(3)/mcL RBC 2.42 (*) 4.63 - 6.08 x10(6)/mcL Hemoglobin 6.8 (*) 13.7 - 17.5 gm/dL Hematocrit 20.8 (*) 40.0 - 51.0 % MCV 86.0 79.0 - 92.0 fL MCH 28.1 25.6 - 32.2 pg MCHC 32.7 32.0 - 36.5 gm/dL Platelets 118 (*) 145 - 370 x10(3)/mcL RDWSD 41.8 35.0 - 46.0 fL RDWCV 13.5 10.9 - 14.4 % MPV 9.2 9.0 - 12.0 fL ELECTROLYTES PANEL Component Value Range Sodium 140 135 - 145 mmol/L Potassium 4.3 3.5 - 5.0 mmol/L Chloride 111 (*) 98 - 107 mmol/L CO2 19 (*) 22 - 31 mmol/L Anion Gap 10 5 - 15 mmol/L BUN Component Value Range BUN 41 (*) 10 - 20 mg/dL CREATININE Component Value Range Creatinine 0.76 (*) 0.80 - 1.50 mg/dL Estimated GFR >60 >=60 GLUCOSE, RANDOM Component Value Range Glucose Lvl 121 60 - 199 mg/dL HEPATIC FUNCTION PANEL Component Value Range Total Protein 5.3 (*) 6.4 - 8.3 gm/dL Albumin 2.8 (*) 3.2 - 5.2 gm/dL AST 105 (*) 0 - 39 unit/L ALT 47 0 - 55 unit/L Alk Phos 56 40 - 120 unit/L Total Bilirubin 0.6 0.2 - 1.3 mg/dL Bili, Direct 0.3 0.0 - 0.3 mg/dL PROTHROMBIN TIME Component Value Range PT 16.8 (*) 12.0 - 15.0 sec INR 1.3 (*) 0.9 - 1.1 APTT Component Value Range PTT 36 (*) 25 - 35 sec GOLD TUBE HOLD Component Value Range Gold Hold Sample in lab. DIFFERENTIAL, AUTOMATED Component Value Range Neutrophils % 61.7 34.0 - 71.0 % Neutr Abs (ANC) 3.64 1.50 - 6.30 x10(3)/mcL Lymphocytes % 25.0 19.0 - 53.0 % Lymphocytes Abs 1.5 1.0 - 3.6 x10(3)/mcL Monocytes % 11.5 4.0 - 13.0 % Monocyte Abs 0.7 0.2 - 1.0 x10(3)/mcL Eosinophils % 1.0 0.0 - 7.0 % Eosinophils Abs 0.1 0.0 - 0.5 x10(3)/mcL Basophils % 0.5 0.0 - 2.0 % Basophils Abs 0.0 0.0 - 0.2 x10(3)/mcL Immature Gran % 0.30 0.00 - 0.66 % Madonna Gran Abs 0.02 0.00 - 0.05 x10(3)/mcL ABORH TYPE MANUAL Component Value Range Specimen OD [id number] ABORh Type A Pos SELECTED CELL SCREEN Component Value Range Ab Screen Interp Value: Previously identified Anti-c, -E. No additional alloantibodies detected.* *Due to the presence of alloantibody(ies) additional time is required for preparation of Red Cell Products. See initial antibody identification report for additional information. PREPARE RBC Component Value Range Dispensed? Yes CBC (WITH DIFF) Component Value Range WBC 4.7 4.0 - 10.0 x10(3)/mcL RBC 2.50 (*) 4.63 - 6.08 x10(6)/mcL Hemoglobin 6.9 (*) 13.7 - 17.5 gm/dL Hematocrit 21.4 (*) 40.0 - 51.0 % MCV 85.6 79.0 - 92.0 fL MCH 27.6 25.6 - 32.2 pg MCHC 32.2 32.0 - 36.5 gm/dL Platelets 110 (*) 145 - 370 x10(3)/mcL RDWSD 42.2 35.0 - 46.0 fL RDWCV 13.6 10.9 - 14.4 % MPV 9.4 9.0 - 12.0 fL BASIC METABOLIC PANEL (NON-FASTING) Component Value Range Glucose Lvl 128 60 - 199 mg/dL BUN 42 (*) 10 - 20 mg/dL Creatinine 0.86 0.80 - 1.50 mg/dL Sodium 142 135 - 145 mmol/L Potassium 4.1 3.5 - 5.0 mmol/L Chloride 115 (*) 98 - 107 mmol/L CO2 20 (*) 22 - 31 mmol/L Anion Gap 7 5 - 15 mmol/L Calcium 7.8 (*) 8.5 - 10.5 mg/dL Estimated GFR >60 >=60 DIFFERENTIAL, AUTOMATED Component Value Range Neutrophils % 56.9 34.0 - 71.0 % Neutr Abs (ANC) 2.67 1.50 - 6.30 x10(3)/mcL Lymphocytes % 31.5 19.0 - 53.0 % Lymphocytes Abs 1.5 1.0 - 3.6 x10(3)/mcL Monocytes % 8.9 4.0 - 13.0 % Monocyte Abs 0.4 0.2 - 1.0 x10(3)/mcL Eosinophils % 1.9 0.0 - 7.0 % Eosinophils Abs 0.1 0.0 - 0.5 x10(3)/mcL Basophils % 0.4 0.0 - 2.0 % Basophils Abs 0.0 0.0 - 0.2 x10(3)/mcL Immature Gran % 0.40 0.00 - 0.66 % Madonna Gran Abs 0.02 0.00 - 0.05 x10(3)/mcL Radiology/Studies/Procedures: 12/03 EGD - Impression: - Normal oropharynx. GIEV, old scaring from previous banding in distal esophagus. - Moderate portal hypertensive gastropathy diffuse throughout stomach. No active oozing or bleeding. - Normal examined duodenum. Recommendation: -No stigmata of recent bleeding, patient with moderate gastropathy may explain chronic anemia (re-start nonselective BB therapy, titrate to HR reduction by 25% as sx tolerate). Ensure continuation on discharge. If he has clinical signs of ongoing bleeding, will warrant further work up to identify source with repeat colonoscopy, VCE as his EGD examdoes not explain acute decline in Hb. -Continue PPI QD -No NSAIDs -Stop octreotide gtt - Complete CFT (can transition to oral Cipro) antibiotic therapy for total 5 days -Continue to monitor Hb, bowel movements, transfuse PRBC -Ok to advance diet to clears as tolerated, if Hb stable can advance further in AM Assessment: Alonzo Urbina is a 57 y.o. 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 No bleeding since admission. S/p 2 u pRBCs since admit and now hemodynamically stable. Issues and Plan of Care: GI Bleed - appreciate GI following. Clears for now. If rebleeds --> colo/capsule endoscopy per GI. Continue PPI given portal htn gastropathy and erosions. Held nadolol/spironolactone for now givenbleed and concerns for hemodynamics. Continue 7 days of abx to prevent bacterial translocation. Monitor clinically for rebleed including exam, serial H+H, platelets/coags, 2 large bore IV, IVF with close attention to his volume status. Given no varices on EGD, can d/c octreotide. Avoid NSAIDs. Cirrhosis - given lack of h/o ascites and concerns for hemodynamics, will not dose spironolactone now. Monitor closely. Will resume nadolol as hemodynamics improve/allow. Systems' Issues -VTE ppx c/SCDs given GI bleed. -Pager to contact 01/11 -Code status - Full; Elissa ruth ([phone]) is medical decision maker. I updated her today at his request. -Disposition - pending medical improvement documented in this encounter H&P Notes * Ernesto Cardona MD - 12/05/2012 11:31 AM EDT Patient Name: Alonzo Urbina Patient Age: 57 y.o. Birthdate: 1955 Admit date: 12/02/2012 Attending Physician: Cory Tellez MD Gastroenterology and Hepatology Pre-Procedure History and Physical Exam Procedure: colonoscopy Indication: GI bleeding Patient Active Problem List Diagnosis Code ??? Cirrhosis 571.5 ??? Alcohol abuse, episodic drinking behavior 305.02 ??? GI bleed 578.9 EXAM: HEENT: Airway examined, oropharynx clear LUNGS: Clear to auscultation HEART: Regular rate and rhythm, normal S1, S2 ABDOMEN: Normal bowel sounds, soft, non tender, non distended, A/P Proceed with the planned endoscopic procedure. Risks and benefits of the procedure explained to the patient. Consent signed. * Ana Camargo Denise - 12/03/2012 11:55 AM EDT Gastroenterology & Hepatology Pre-Procedure History and Physical Procedure: EGD Indication: melena History of Present Illness: Alonzo Urbina is a 57 y.o. WM, PMH s/o ETOH abuse (sober 12/21), HCV (PEG IF/ribavirin stopped ncephalitis), cirrhosis with hx of variceal sequential banding to eradication in 2007, hx of UGIB without obvious clear source in past, recent EGD 09/21 GIEV, mild portal gastropathy, who reports being off his medications (Welbutrin, Nadalol) since September due to expensive copay, and presents today with c/o melena/nausea in setting of increased physical exertion/aleve intake, HD stable, 4 gram decline in Hb from 11-->6.8. Differential includes PUD/DUD, variceal, AMV, ?GAVE in past EGD's, portalgastropathy. See consult note for full details. Patient Active Problem List Diagnosis Code ??? Cirrhosis 571.5 ??? Alcohol abuse, episodic drinking behavior 305.02 Medications: Reviewed in ED[facility] Allergies Allergen Reactions ??? Ambien (Zolpidem) Other (See Comments) Drove his car while sleeping Social History/Family History: Reviewed in ED[facility]. No changes Exam: Filed Vitals: 12/03/12 1120 BP: 105/55 Pulse: 84 Temp: 36.9 ??C (98.5 ??F) Resp: 22 See consult note for detailed exam. Assessment and Plan: Proceed with EGD: ASA Grade: ASA 3 - Patient with moderate systemic disease with functional limitations Sedation plan: Moderate Conscious sedation Risks and benefits of the procedure were discussed with the patient. Consent has been signed. * Andres Thompson - 12/02/2012 11:32 PM EDT Inpatient Hospital Medicine - Admission Note Problem List: There are no hospital problems to display for this patient. Active Non-Hospital Problems Diagnosis ??? Cirrhosis ??? Alcohol abuse, episodic drinking behavior ID: 57 y.o. Male [place] [facility] [place] bleed. History of Present Illness: HPI Patient is a 57 Y M with history of Hepatitis C, cirrhosis Portal HTN who was transferred from [facility] for evaluation of GI bleed. Patient says that he was history of esophageal varices in the past with banding done in the past.and history of GI bleed in the past needing blood transfusion. He was doing relatively well, was last seen in outpatient GI clinic 2 months ago. He says he has notbeen taking any medications. He started working out at a gym 2 days ago. He developed body ache yesterday for which he took aleve twice. Today morning he had an episode of explosive bloody bowel movement. Following this, he had multiple smaller episodes of bloody bowel movements totaling 5 episodestoday. Review of Systems: Review of Systems ROS: negative unless in bold letters. Const: sick contacts, fever, chills, wt loss, malaise,weakness, dizziness,? appetite HEENT: blurry vision,photophobia, ? vision, ? hearing, sore throat, tinnitus,drainage Resp: SOB, cough, sputum, pleuritic chest pain,hemoptysis Card: orthop, PND, ROSALES, LE edema, pain chest/left arm/ shoulder/ neck/ jaw/ back, syncope, palp,claudication GI: N, V, regurg, heartburn, odynophagia,dysphagia for solids/liquids, abd pain, diarrhea, constipation,bloat, hemetem, melena, hematochezia, mucus : urgency/frequency/ incontinence, dysuria, hematuria, hesitancy, postvoid dribbling, impotence, testicular masses,vaginal dc,dyspareunia, bleeding Endo: thirst, polyuria, heat/ cold intole,tremor, menstrual irreg, ? hair/ skin/ nails, ? libido, ?bodyhair Skin: rashes, itch Breast: masses, pain, discharge, Msk: arthralgias, deformity, swelling, myalgias,muscle weakness Hematologic: bruising, h/o excessive bleeding, LAD Neurologic: [place], focal weakness, seizure, tremor, falls, memory loss, paresthesias, sensory loss, vertigo Psychiatric: Sleep/ interest/ guilt/ energy/ concentration/appetite/ psychomotor/ suicide Past Medical and Surgical History: Cirrhosis: Esophageal varices. GI bleeding. Blood transfusions. Depression Variceal band ligation in 2007, 2008. 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 Prior To Admission Medications: No current facility-administered medications on file prior to encounter. Current Outpatient Prescriptions on File Prior to Encounter Medication Status Sig Dispense Refill ??? buPROPion (WELLBUTRIN XL) 300 mg 24 hr tablet Active Take 300 mg by mouth every morning. ??? spironolactone (ALDACTONE) 50 mg tablet Active Take 50 mg by mouth daily. ??? pantoprazole (PROTONIX) 40 mg tablet Active Take 40 mg by mouth daily. ??? nadolol (CORGARD) 20 mg tablet Active Take 20 mg by mouth daily. ??? multivitamin (THERAGRAN) tablet Active Take 1 tablet by mouth daily. ??? folic acid (FOLVITE) 1 mg tablet Active Take 1 mg by mouth daily. ??? escitalopram (LEXAPRO) 20 mg tablet Active Take 10 mg by mouth daily. ??? naproxen (NAPROSYN) 250 mg tablet Active Take 500 mg by mouth as needed. Allergies: Allergies Allergen Reactions ??? Ambien (Zolpidem) Other (See Comments) Drove his car while sleeping Family History: History reviewed. No pertinent family history. Social History and Habits: History Social History ??? Marital Status: Spouse Name: N/A Number of Children: N/A ??? Years of Education: N/A Occupational History ??? Not on file. Social History Main Topics ??? Smoking status: Never Smoker ??? Smokeless tobacco: Never Used ??? Alcohol Use: Not on file ??? Drug Use: Not on file ??? Sexually Active: Not on file Other Topics Concern ??? Not on file Social History Narrative ??? 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 Lives with his girlfriend. Immunizations: There is no immunization history on file for this patient. Physical Exam: Last Set of Vitals and range of vitals over past 24 hours: Last value Range last 24 hrs Temperature Temp: 36.7 ??C (98.1 ??F) Temp: [36.7 ??C (98.1 ??F)] Heart Rate Heart Rate: 95 Heart Rate: [92-102] Blood Pressure BP: 120/55 mmHg BP: (98-126)/(55-105) Respiratory Rate Resp: 16 Resp: [16-26] SpO2 SpO2: 99 % SpO2: [95 %-100 %] Physical Exam General: Moderately built and overweight. No distress. Resp: Bilateral air entry, lungs clear. CVS: S1S2 normal, regular rhythm Abdomen: soft, distended, non tender, BS + Extremities: No edema, peripheral pulses + [employer]: Awake, alert, oriented. No focal deficits. Laboratory (Last 24 Hours): Recent Results (from the past 24 hour(s)) CBC (WITH DIFF) Component Value Range WBC 5.9 4.0 - 10.0 x10(3)/mcL RBC 2.42 (*) 4.63 - 6.08 x10(6)/mcL Hemoglobin 6.8 (*) 13.7 - 17.5 gm/dL Hematocrit 20.8 (*) 40.0 - 51.0 % MCV 86.0 79.0 - 92.0 fL MCH 28.1 25.6 - 32.2 pg MCHC 32.7 32.0 - 36.5 gm/dL Platelets 118 (*) 145 - 370 x10(3)/mcL RDWSD 41.8 35.0 - 46.0 fL RDWCV 13.5 10.9 - 14.4 % MPV 9.2 9.0 - 12.0 fL ELECTROLYTES PANEL Component Value Range Sodium 140 135 - 145 mmol/L Potassium 4.3 3.5 - 5.0 mmol/L Chloride 111 (*) 98 - 107 mmol/L CO2 19 (*) 22 - 31 mmol/L Anion Gap 10 5 - 15 mmol/L BUN Component Value Range BUN 41 (*) 10 - 20 mg/dL CREATININE Component Value Range Creatinine 0.76 (*) 0.80 - 1.50 mg/dL Estimated GFR >60 >=60 GLUCOSE, RANDOM Component Value Range Glucose Lvl 121 60 - 199 mg/dL HEPATIC FUNCTION PANEL Component Value Range Total Protein 5.3 (*) 6.4 - 8.3 gm/dL Albumin 2.8 (*) 3.2 - 5.2 gm/dL AST 105 (*) 0 - 39 unit/L ALT 47 0 - 55 unit/L Alk Phos 56 40 - 120 unit/L Total Bilirubin 0.6 0.2 - 1.3 mg/dL Bili, Direct 0.3 0.0 - 0.3 mg/dL PROTHROMBIN TIME Component Value Range PT 16.8 (*) 12.0 - 15.0 sec INR 1.3 (*) 0.9 - 1.1 APTT Component Value Range PTT 36 (*) 25 - 35 sec GOLD TUBE HOLD Component Value Range Gold Hold Sample in lab. DIFFERENTIAL, AUTOMATED Component Value Range Neutrophils % 61.7 34.0 - 71.0 % Neutr Abs (ANC) 3.64 1.50 - 6.30 x10(3)/mcL Lymphocytes % 25.0 19.0 - 53.0 % Lymphocytes Abs 1.5 1.0 - 3.6 x10(3)/mcL Monocytes % 11.5 4.0 - 13.0 % Monocyte Abs 0.7 0.2 - 1.0 x10(3)/mcL Eosinophils % 1.0 0.0 - 7.0 % Eosinophils Abs 0.1 0.0 - 0.5 x10(3)/mcL Basophils % 0.5 0.0 - 2.0 % Basophils Abs 0.0 0.0 - 0.2 x10(3)/mcL Immature Gran % 0.30 0.00 - 0.66 % Madonna Gran Abs 0.02 0.00 - 0.05 x10(3)/mcL Assessment: 57 Y M with cirrhosis secondary to Hep C + Alcoholism complicated by varices, GI bleeding in the past s/p banding, Depression, remote substance abuse, back pain admitted with breakthrough GI bleeding. Patient gives history of doing workout recently and then taking naproxen for body ache which likely precipitated the event. Hemodynamically stable at present. Drop in Hb from 9.3 at OSH to 6.8 upon transfer to ED here. Impression: 1) Cirrhosis, portal HTN, esophageal varices, GI bleeding Plan: ?? Admit to Hospital Medicine ?? Cirrhosis, Portal HTN, esophageal varices, GI bleeding ?? Monitor H&H. ?? PRBC transfusion ?? Gastro consulted. Plan for endoscopy, Ceftriaxone 1 g daily. ?? Nexium BID ?? Octreotide 50 stat followed by infusion ?? IV fluids. ?? Ondansetron. ?? Lactulose after scopy. ?? Physical Therapy referral ?? DVT Prophylaxis: scd ?? If currently a smoker - advised about smoking cessation and will provide smoking cessation material and support. ?? Pneumovax and Influenza Immunizations given as needed. ?? Discussed Advanced Directives and Code Status. The patient wishesto be Full Code. A copy of this document will be sent to the patient's Primary Care Physician and/or Referring Physician. ANDRES THOMPSON MD 12/02/2012 documented in this encounter Procedure Notes * Provider, Scanning - 12/08/2012 3:03 PM EDTAssociated Order(s): SCAN DOC: MANAGER EMERGENCY * Provider, Scanning - 12/08/2012 2:46 PM EDTAssociated Order(s): SCAN DOC: LAB documented in this encounter ED Notes * Michael Browne RN - 12/03/2012 12:57 AM EDT PT to room pt accompinied by RN for transport * Michael Browne RN - 12/03/2012 12:28 AM EDT Pt awaiting admission room assignment GI Md in with pt pt alert oriented resp regular unlabored IV's infusing without difficulty * Michael Browne RN - 12/02/2012 11:12 PM EDT Pt resting quietly resp regular unlabored pt c/o nausea Medicine MD in with pt for evaluation * Sharon Gill MD - 12/02/2012 10:17 PM EDT No chief complaint on file. HPI Allergies Allergen Reactions ??? Ambien (Zolpidem) Other (See Comments) Drove his car while sleeping Review of Systems Physical Exam Procedures MDM ED Course: Emergency Department Alonzo Urbina is a 57 y.o. male who presents to [facility] with GI bleeding History of Present Illness / Review of Systems The patient is resting comfortably in the bed Physical Exam: I reviewed the patient???s vitals as recorded in the electronic medical record and ED nursing notes. The patient was non-toxic appearing and in no obvious distress. He was pale and his blood pressurewas in the 90s but he was alert and oriented and not in any distress. Assessment/Plan: This 57 y.o. male was transferred from an outside hospital emergency department to receive specialty care provided by the critical care service for GI bleeding. I discussed the case with resident/fellow of the accepting service. The patient was deemed to be stable and not requiring significant involvement from the attending emergency physician at this time. The accepting service has assumed further care of the patient. Please see their notes for any further clinical details. Sharon Gill MD 12/02/122216 Sharon Gill MD 12/02/122223 documented in this encounter Miscellaneous Notes * Plan of Care - Saniya Palmer RN - 12/07/2012 9:47 AM EDT Problem: Skin Integrity Impairment, Risk/Actual (Adult, Obstetric) Goal: Skin Integrity Impairment, Risk/Actual: Skin Integrity/Wound Healing Skin intact, pt moves per self. Problem: Pain, Acute (Adult, Obstetric) Goal: Acute Pain: Acceptable Pain Control/Comfort Level - Pain, Acute (Adult, Obstetric) Pt denies pain at this time. Problem: Trauma/Injury Risk (Adult, Obstetric) Goal: Trauma/Injury Risk: Absence of Trauma/Injury/Falls Pt alert and oriented, up per self. Problem: Gastrointestinal Bleeding (Adult, Obstetric) Goal: Prevent/Manage Potential Problems Based on my scope of practice, I assessed for signs and symptoms of potential problems that could be present as documented. Pt denies bleeding per rectum. Nexium as ordered continues. GI following. * Plan of Care - Socorro Lomeli RN - 12/07/2012 6:36 AM EDT Problem: Gastrointestinal Bleeding (Adult, Obstetric) Goal: Prevent/Manage Potential Problems Based on my scope of practice, I assessed for signs and symptoms of potential problems that could be present as documented. Pt has been seen up to void. He has not mentioned any bowel movements, but has stated that he has not passed the capsule, whereas on previous occasions he passed it within 8 hours. Medicated x 1 per MAR for nausea. Blood pressures in 90's. * Discharge Summary - Cory Tellez - 12/06/2012 7:22 PM EDT Inpatient Hospital Medicine - Discharge Summary Patient Name: Alonzo Urbina Patient Age: 57 y.o. Birthdate: 1955 Admit date: 12/02/2012 Discharge date and time: 12/07/2012, 11:00 Attending Physician: Cory Tellez MD Discharge Diagnoses (Hospital Problems) and Secondary Diagnoses (Chronic Problems): Active Hospital Problems Diagnosis ??? GI bleed Resolved Hospital Problems Diagnosis Date Resolved No resolved problems to display. Active Non-Hospital Problems Diagnosis ??? Cirrhosis ??? Alcohol abuse, episodic drinking behavior Operations/Major Procedures: Procedures This Admission: Procedure(s): EGD, UPPER GI ENDOSCOPY 12/03/2012 Procedure(s): COLONOSCOPY, DIAGNOSTIC 12/05/2012 Procedure(s): VIDEO CAPSULE ENDOSCOPY 12/06/2012 History of Presentation: (From Admitting History and Physical) Patient is a 57 Y M with history of Hepatitis C, cirrhosis Portal HTN who was transferred from [facility] for evaluation of GI bleed. Patient says that he was history of esophageal varices in the past with banding done in the past.and history of GI bleed in the past needing blood transfusion. He was doing relatively well, was last seen in outpatient GI clinic 2 months ago. He says he has notbeen taking any medications. He started working out at a gym 2 days ago. He developed body ache yesterday for which he took aleve twice. Today morning he had an episode of explosive bloody bowel movement. Following this, he had multiple smaller episodes of bloody bowel movements totaling 5 episodestoday. Hospital Course: Mr. Urbina was admitted to the Hospital Medicine Service and his medical issues addressed as follows: GI Bleed - Mr. Urbina was initially admitted ISCU status and GI was consulted. 2 large bore IVs were placed, IVF started, H+H trended. He was started on IV PPI infusion as well as octreotide, the latter started given his h/o varices. Abx were started to prevent bacterial translocation and he will complete his course at home. His NSAIDs were discontinued/avoided during admission. He underwent EGD, colonoscopy, and video capsule endoscopy. He was found to have portal hypertensive gastropathy forwhich he was treated with resuming of his nadolol and PPI. He had grade I esophageal varices that were not bleeding. Colonoscopy was negative, though his prep wasn't perfect. Video capsule endoscopy is pending at this time and GI will f/u with him including calling for a f/u appointment as well as with the results. Throughout his stay he required a total of 2 units of pRBCs for transfusion. He remained hemodynamically stable throughout. At discharge his H+H had been stable for several days in the mid 8 region. He will need f/u H+H in 1 week's time at his PCP's appointment. He was given ER prec autions to return. He was advised to avoid NSAIDs/ASA/anticoagulants. abx In further d/w , he notes he stopped his medications not because of inability to pay the copay, but because he didn't want to take them anymore. He denied issues with his current health insurance/ability to pay the copays. Cirrhosis/Portal Hypertension - on exam, as well as recent u/s he had no evidence of ascites. Givenhis borderline BPs and need to use BP for nadolol, as well as the fact that he's been off spironolactone for some time, this was not resumed here or at discharge. He was started on nadolol prior to discharge. He has f/u scheduled with his primary GI/[facility] provider. He was advised to avoid EtOH.LFTs were trended here and hepatotoxins were avoided.He was maintained on MVI and folate. Insomnia - he was in a private room to minimize interruptions, and was also started on prn trazodone which worked very well for him. He was d/c'd with a small rx for same and f/u c/his PCP. His previous anti-depressants were not prescribed here as he has not been taking them and did not want to resume them. He denied SI/HI and can f/u with his PCP for this. Important Studies and Lab Data: Labs: Recent Labs Basename 12/07/12 0902 12/06/12 0612 12/05/12 1851 12/05/12 0539 WBC 3.1* 2.2* -- 2.5* HGB 8.2* 8.4* 8.9* -- HCT 25.6* 25.6* 27.3* -- PLATELET 111* 98* -- 98* Recent Labs Basename 12/06/12 0612 12/05/12 0539 12/04/12 1513 NA 140 142 142 K 3.9 3.6 3.0* CL 113* 113* 110* CO2 22 20* 20* BUN 8* 14 20 CREATININE 0.84 0.92 0.94 Recent Labs Basename 12/06/12 0612 12/04/12 1513 12/02/12 2230 AST 258* 364* 105* ALT 101* 108* 47 ALKPHOS 51 57 56 BILITOT 0.6 1.1 0.6 BILIDIR 0.3 0.6* 0.3 Recent Labs Basename 12/06/12 0612 12/05/12 0539 12/04/12 1513 CALCIUM 7.8* 7.7* 7.9* PHOS -- -- -- Ammonia - 30 Radiology/Studies/Procedures: 12/06 Video Capsule Endoscopy - results pending at time of this discharge summary 12/05 Colonoscopy - Findings: The perianal and digital rectal examinations were normal. The terminalileum appeared normal. There was adherent brown material in the ascending and proximal transverse colon that could not be completely washed away, so small mucosal based lesions could have been missed. However, the underlying visualized mucosa appeared normal. There were no lesions in the distal transverse, descending and rectosigmoid colon. Mucosa was diffusely midly friable. Impression: - The examined portion of the ileum was normal. - Suboptimal prep in the right colon, but no lesions identified to explain blood loss. Somewhat friable mucosa throughout the colon, may be communications representative of por kee hypertension. Recommendation: - Although possible that small lesions were missed (e.g., AVMs), would proceed with capsule endoscopy as next step to evaluate for significant lesions. 12/03 EGD - Impression: - Normal oropharynx. GIEV, old scaring from previous banding in distal esophagus. - Moderate portal hypertensive gastropathy diffuse throughout stomach. No active oozing or bleeding. - Normal examined duodenum. Recommendation: -No stigmata of recent bleeding, patient with moderate gastropathy may explain chronic anemia (re-start nonselective BB therapy, titrate to HR reduction by 25% as sx tolerate). Ensure continuation on discharge. If he has clinical signs of ongoing bleeding, will warrant further work up to identify source with repeat colonoscopy, VCE as his EGD examdoes not explain acute decline in Hb. -Continue PPI QD -No NSAIDs -Stop octreotide gtt - Complete CFT (can transition to oral Cipro) antibiotic therapy for total 5 days -Continue to monitor Hb, bowel movements, transfuse PRBC -Ok to advance diet to clears as tolerated, if Hb stable can advance further in AM Assessment: Alonzo Urbina is a 57 y.o. 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 No bleeding since admission. S/p 2 u pRBCs since admit and now hemodynamically stable c/stable H+H. Issues and Plan of Care: GI Bleed - appreciate GI following. Video capsule endoscopy today. Continue PPI given portal htn gastropathy and erosions. Back on nadolol for portal hypertension/sequelae. Continue 7 days of abx to prevent bacterial translocation. Monitor clinically for rebleed including exam, serial H+H, platelets/coags, 2 large bore IV, IVF with close attention to his volume status. Avoid NSAIDs. Resuming nadolol cautiously with close monitoring of BP and HR. Cirrhosis - given lack of h/o ascites and concerns for hemodynamics, will not dose spironolactone now. Monitor closely. LFTs trending down. Continue nadolol. Insomnia - cont trazodone Pending Studies and Lab Data: Video capsule endoscopy - GI will call patient with results tomorrow Discharge Conditions/Prognosis: No bleeding in several days, H+H stable, vitals stable, improved on PPI, nadolol Discharge to: Home c/fiance Crystal Discharge Medications: Current Discharge Medication List New Meds Dose Details ciprofloxacin (CIPRO) 500 mg tablet 500 mg Take 1 tablet by mouth 2 times daily for 5 doses. Qty: 6 tablet Refills: 0 ondansetron (ZOFRAN) 4 mg tablet 4 mg Take 1 tablet by mouth every 8 hours as needed. Qty: 20 tablet Refills: 0 traZODone (DESYREL) 50 mg tablet 50 mg Take 1 tablet by mouth nightly as needed for Sleep. Qty: 20 tablet Refills: 0 Continued medications with revised dosing Dose Details nadolol (CORGARD) 20 mg tablet 20 mg Take 1 tablet by mouth daily. Qty: 30 tablet Refills: 0 folic acid (FOLVITE) 1 mg tablet 1,000 mcg Take 1 tablet by mouth daily. Qty: 30 tablet Refills: 0 pantoprazole (PROTONIX) 40 mg tablet 40 mg Take 1 tablet by mouth daily. Qty: 30 tablet Refills: 0 Continued medications, unchanged Dose Details multivitamin (THERAGRAN) tablet 1 tablet Take 1 tablet by mouth daily. Medications STOPPED Dose buPROPion (WELLBUTRIN XL) 300 mg 24 hr tablet 300 mg spironolactone (ALDACTONE) 50 mg tablet 50 mg escitalopram (LEXAPRO) 20 mg tablet 10 mg naproxen (NAPROSYN) 250 mg tablet 500 mg Updated Allergies/ADRs: Allergies Allergen Reactions ??? Ambien (Zolpidem) Other (See Comments) Drove his car while sleeping Follow-up Recommendations for Providers: -F/u H+H at 12/14 appointment and transfuse for hgb < 7 -If he rebleeds, would send for emergent tagged RBC scan, consult GI for repeat endoscopies -Ensure pt is taking nadolol; titrate dose for goal HR < 60 as BP tolerates -Ensure he finishes ciprofloxacin rx -F/u in Liver Clinic -Continue to avoid hepatotoxins as possible Instructions Given to Patient at Discharge: Provider Instructions Patient Instructions on Discharge to Home Why you were hospitalized - bleeding from your gastrointestinal tract Call your doctor or seek medical attention if you develop the following - chest pain, shortness of breath, passing out, feeling dizzy upon standing, passing out, diarrhea, constipation lasting longerthan 2 days, fevers (temperature over 100.3), chills, abdominal pain, vomiting, difficulty or discomfort when urinating, bloody or black bowel movements, or any other acute or concerning symptom. Activity level - as tolerated Diet - low in sodium, heart healthy Driving - per previous; none after taking sedating medications such as trazodone Shower/Bath - per previous Other Important Instructions -It is very important to take your medications as prescribed and follow-up with your primary care physician and dye reel operator helper. You will need a blood test the day you see your primary care provider (12/14). -Other Instructions: Avoid all medications known as NSAIDS (non-steroidal anti- inflammatory drugs),as these medications may predispose to more bleeding. These include products with ibuprofen (Motrin, Advil, etc), naproxen (Naprosyn, Aleve), aspirin for pain (Excedrin, Anacin, etc). Many over the counter cough/cold remedies contain these products, so check the label before using. Follow-up Appointments You have follow-up scheduled with Dr. GINA MANZO MD at [address] [place] [address] on , December 14 at 10:45 am. Future Appointments Date Time Provider Department Center 12/28/2012 8:45 AM 2, Ultrasound Rm [facility] None 12/28/2012 11:30 AM Paty Pedraza APRN [facility] 4L [facility] Your Discharge Medication List Unchanged [employer] meds that are or will be resumed Medication Status Sig Dispense Refill ??? multivitamin (THERAGRAN) tablet Active Take 1 tablet by mouth daily. Changed COMM[employer]ER meds Medication Status Sig Dispense Refill ??? nadolol (CORGARD) 20 mg tablet Active Take 1 tablet by mouth daily. 30 tablet 0 ??? folic acid (FOLVITE) 1 mg tablet Active Take 1 tablet by mouth daily. 30 tablet 0 ??? pantoprazole (PROTONIX) 40 mg tablet Active Take 1 tablet by mouth daily. 30 tablet 0 New prescriptions Medication Status Sig Dispense Refill ??? ciprofloxacin (CIPRO) 500 mg tablet Active Take 1 tablet by mouth 2 times daily for 5 doses. 6 tablet 0 ??? ondansetron (ZOFRAN) 4 mg tablet Active Take 1 tablet by mouth every 8 hours as needed. 20 tablet 0 ??? traZODone (DESYREL) 50 mg tablet Active Take 1 tablet by mouth nightly as needed for Sleep. 20 tablet 0 [employer] meds that are DCed or will be DCed Medication Status Sig Dispense Refill ??? buPROPion (WELLBUTRIN XL) 300 mg 24 hr tablet Active Take 300 mg by mouth every morning. ??? spironolactone (ALDACTONE) 50 mg tablet Active Take 50 mg by mouth daily. ??? escitalopram (LEXAPRO) 20 mg tablet Active Take 10 mg by mouth daily. ??? naproxen (NAPROSYN) 250 mg tablet Active Take 500 mg by mouth as needed. ??? pantoprazole (PROTONIX) 40 mg tablet Discontinued Take 40 mg by mouth daily. ??? nadolol (CORGARD) 20 mg tablet Discontinued Take 20 mg by mouth daily. ??? folic acid (FOLVITE) 1 mg tablet Discontinued Take 1 mg by mouth daily. Your Inpatient Medical Team at [facility] Name(s) of your inpatient provider(s): Drs. Andres Thompson, Cory Tellez, Ernesto Cardona, Gustabo Garza For questions regarding issues relating to your hospitalization on the Hospital Medicine Service, please contact your inpatient physician through the [facility] National Facilities Manager [phone]. Issues after hours and on weekends will be handled by the Hospitalist staff on-call. Your Primary Care Provider GINA MANZO MD [phone] General Instructions None Future Appointments and Orders Future Appointments: Provider: Department: Dept Phone: Center: 12/28/2012 8:45 AM Ultrasound 2 [facility] RAD ULTRASOUND [phone] None 12/28/2012 11:30 AM Paty Pedraza APRN Gastroenterology [phone] [facility] Discharge References/Attachments: Discharge References/Attachments None Inpatient Provider Contact Information: For questions regarding this document or issues relating to this hospitalization on the Medical Service, please contact your inpatient physician through the [facility] National Facilities Manager . Issues afterhours and on weekends will be handled by the Hospitalist staff on-call. Electronically Signed by: CORY TELLEZ MD 12/07/2012 * Plan of Care - Himanshu Gallegos RN - 12/06/2012 11:11 AM EDT Problem: Gastrointestinal Bleeding (Adult, Obstetric) Intervention: Hemodynamic Stabilization 0815 Am Given a video capsule by Endoscopy nurse at this time. C/0 nausea which he said was ongoing intermittently. Medicated with zofran IV. No active bleeding/ No rectal bleeding noted. VSS Himanshu Gallegos RN * Plan of Care - Radha Guzmán RN - 12/06/2012 3:42 AM EDT Problem: Gastrointestinal Bleeding (Adult, Obstetric) Goal: Prevent/Manage Potential Problems Based on my scope of practice, I assessed for signs and symptoms of potential problems that could be present as documented. Outcome: Present (see interventions, notes) Patient has been very withdrawn tonight, requesting to receive his Trazodone and then be allowed tosleep. Patient appeared to sleep well. He denies any further bloody stools. Mild nausea but resolved with sleep. 0600 pt reports no stools tonight. Rash appears unchanged. He denies pruritus tonight. See MAR and flow sheets for assessments and nursing interventions. Nursing interventions per care plan guidelines. Addressed patient's specific needs this shift including physical and emotional comfort, promote homeostasis, maintain patient safety, and reinforce education. * Plan of Care - Socorro Lomeli RN - 12/05/2012 6:58 PM EDT Problem: Pain, Acute (Adult, Obstetric) Goal: Acute Pain: Acceptable Pain Control/Comfort Level - Pain, Acute (Adult, Obstetric) No c/o pain today Problem: Trauma/Injury Risk (Adult, Obstetric) Goal: Trauma/Injury Risk: Absence of Trauma/Injury/Falls Pt up independently to bathroom. Problem: Gastrointestinal Bleeding (Adult, Obstetric) Intervention: Fluid Management Remains on IVF. Went for Colonoscopy today. Was ordered clears for a few hours and now NPO again. Tomorrow back to Endoscopy for capsule study. Patient has taken the 2000cc of [employer] ordered this afternoon. Medicated for nausea per JUN. * Op Note - Ernesto Cardona MD - 12/05/2012 5:03 PM EDT [facility] Operative Note Patient Name: Alonzo Urbina : [id number] MR#: [id number] Case Date: 12/05/2012 Surgeon: Surgeon(s) and Role: * Ernesto Cardona MD - Primary Preoperative diagnosis: UGIB with EGD portal gastropathy with clean base ulcer can't explain GIB (for 12/05) Postoperative diagnosis: * No post-op diagnosis entered * Procedure(s): COLONOSCOPY, DIAGNOSTIC Full procedure note is documented under the Procedure section of eDH. * Initial Assessments - Estela Barba, PT - 12/05/2012 10:40 AM EDT Physical Therapy Evaluation Patient profile: Pt. is a 57 y.o. male admitted on 12/02/2012 by Cory Ferguson MD for GI bleed Noted to have some instability ambulating at admission, PT consulted 12/04/12 PMH: Cirrhosis etoh abuse, sober 1 year Scoliosis - s/p two spinal surgeries (70's scoliosis fusion, 90's removal rods) HCV hx of variceal sequential banding to eradication in 2007, hx of UGIB Social History: 2 steps inside home Previously independent ambulator, goes to gym, walks in [place] and does much outdoor activity at baseline. No fall history reported by patient- states he limps slightly at baseline due to scoliosis Precautions/Special Considerations:universal Subjective: ???I have been out in the royal walking around without a problem. ?? I walk like this normally Objective: Pt seen for evaluation today. Pain: denies Vital Signs: Last value Range last 12 hrs Temperature Temp: 36.5 ??C (97.7 ??F) Temp: [36.5 ??C (97.7 ??F)-36.6 ??C (97.9 ??F)] Heart Rate Heart Rate: 61 Heart Rate: [60-70] Blood Pressure BP: 112/56 mmHg BP: (101-118)/(50-58) Respiratory Rate Resp: 16 Resp: [16-18] SpO2 SpO2: 100 % SpO2: [96 %-100 %] Mental Status: alert, oriented to person, place, and time Musculoskeletal:concave right spine, midline incision scar from scoli fusion Extremities with full ROM and strength , does not use bracing at feet although does have a slight rocker bottom appearance to right foot with inversion / supination when walking. Functional Mobility:independent Gait:slight rocker bottom appearance to right foot with inversion / supination when walking, leans / lists to right which is baseline for him. Steady despite lean right and slight right ankle inversion / supination. Slightly improved stability with use of IV pole in right arm but he is functionallyindependent and safe waking without assistive device. Balance: good Informed Consent:pt agreeable to evaluation by PT Education: patient have been educated on Role of therapy and Discharge planning Patient status, treatment, and mobility recommendations discussed with nursing. Assessment:walking and mobilizing with baseline mobility. No skilled PT needs identified, pt in agreement Plan:home when medically appropriate Total time spent with patient: 23 minutes- eval Total timed interventions: 0 minutes ESTELA BARBA, PT 12/05/2012 Pager: [phone] Physical Therapy Rehabilitation Department * Plan of Care - Juliette Barreto RN - 12/05/2012 12:23 AM EDT Problem: Pain, Acute (Adult, Obstetric) Goal: Acute Pain: Acceptable Pain Control/Comfort Level - Pain, Acute (Adult, Obstetric) Outcome: Absent and monitoring Pt denies pain. Problem: Trauma/Injury Risk (Adult, Obstetric) Goal: Trauma/Injury Risk: Absence of Trauma/Injury/Falls Outcome: Absent and monitoring Pt instructed to call for assistance when ambulating to restroom if he feels dizzy or unsteady. Reminded pt of IV pole and cord, and instructed to call if needs assistance to unplug for restroom. Problem: Gastrointestinal Bleeding (Adult, Obstetric) Goal: Prevent/Manage Potential Problems Based on my scope of practice, I assessed for signs and symptoms of potential problems that could be present as documented. Outcome: Present (see interventions, notes) Pt has not had any further BMs since day shift. IV fluids infusing as ordered. Pt instructed to call if BM occurs to have nurse evaluate for blood. * Plan of Care - Vesta Miller RN - 12/04/2012 6:40 PM EDT Problem: Gastrointestinal Bleeding (Adult, Obstetric) Intervention: Hemostasis Promotion Pt completed golytely prep this afternoon, pt scheduled to be NPO at midnight for colonoscopy in [place] 12/05/12. Pt reporting liquid dark stools. H/H q 6 hours as ordered, last resulted at 1515 with 8.4/25.8.. Next H/H due at 2100. Pt with K+ of 3.0, received 40 mEq KCL po at 1758. 10mEq KCL IV initated at 1758, IV infusion stopped at 1815 d/t phlebitis and pt being unable to tolerate infusion. Dr. Tellez notified of pt's intolerance to IV infusion. Will continue current level of monitoring and notify medical team of any changes in pt status. Willfollow up with medical provider to ensure repletement of electrolytes. * Plan of Care - Mirlande Martins RN - 12/03/2012 2:40 AM EDT Problem: Skin Integrity Impairment, Risk/Actual (Adult, Obstetric) Goal: Skin Integrity Impairment, Risk/Actual: Skin Integrity/Wound Healing Skin inspected no signs of any breakdown noted. Pt able to turn self in bed. Mepilex applied to sacrum. Will continue to monitor. * Consult Note - Gustabo Garza MD - 12/02/2012 11:59 PM EDT . [facility] Section of Gastroenterology and Hepatology Initial Inpatient Consultation Patient Name: Alonzo Urbina : 1955 Referring provider: Dr. Granados, medicine Date of Consult: 12/02/12 Reason for Consult: UGIB History of Present Illness: Alonzo Urbina is a 57 y.o. 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 Differential includes PUD/DUD, variceal, AMV,?GAVE in past EGD's, portal gastropathy. Patient is followed in our GI clinic by Lucy Pedraza, last seen 09/21, for known HCV/ETOH cirrhosis. His cirrhosis is complicated by varices, portal gastropathy, question of gastric antral vascular ectasia. Who presents with c/o dark stool, maroon, painless x several episodes. Denies abd distension, pain, emesis, reports Aleve one day denies daily use. Had colonoscopy at [facility] reportedly WNL. Last EGD09/21 Dr. Browne, mild gastropathy, old scarring from previous banding, GIEV. He reports only abd surgery HH repair. Denies heartburn, F/C. He admits to hx of GIB 4-5 x's since 2007. Denies hx of ascites, encephalopathy, recent ETOH use. Review of Systems: Constitutional: no weight loss HEENT: no visual changes, no URI symptoms Cardio: no chest pain Resp: no SOB, wheezing or cough Heme: denies easy bruising GI: see HPI : no dysuria Integumentary: no new rashes Musculoskeletal: no new joint pains Neuro: no new numbness, weakness in extremities All other systems negative except as above in HPI Social History: reports that he has never smoked. He has never used smokeless tobacco. Family History: family history is not on file. Allergies Allergen Reactions ??? Ambien (Zolpidem) Other (See Comments) Drove his car while sleeping (Not in a hospital admission) Current meds: ??? ondansetron Completed 8 mg Intravenous Once ??? Octreotide Acetate Active 50 mcg Subcutaneous TID ??? esomeprazole Active 40 mg Intravenous BID ??? cefTRIaxone Active 1 g Intravenous Q24H ARSENIO Physical exam: Filed Vitals: 12/02/12 2330 BP: 116/52 Pulse: 96 Temp: Resp: 18 Gen: WN/WD, alert, NAD HEENT: NC/AT, PERRL, anicteric, MMM, no erythema Neck: soft, supple, no cervical LAD CVS: Regular rate and rhythm, RACHEL Lungs: CTAB without wheeze, rale or rhonchi Abd: soft, obese, BS, NTTP Rectal: deferred Ext: Warm and well perfused. pedal edema Neuro: AAOx3, Grossly non-focal. No asterixis. Skin: No rash, lesion Labs: Lab Results Component Value Date Sodium 140 12/02/2012 Potassium 4.3 12/02/2012 Chloride 111* 12/02/2012 CO2 19* 12/02/2012 BUN 41* 12/02/2012 Creatinine 0.76* 12/02/2012 Glucose Lvl 121 12/02/2012 Lab Results Component Value Date ALT 47 12/02/2012 AST 105* 12/02/2012 ALKPHOS 56 12/02/2012 BILITOT 0.6 12/02/2012 Lab Results Component Value Date WBC 5.9 12/02/2012 HGB 6.8* 12/02/2012 HCT 20.8* 12/02/2012 MCV 86.0 12/02/2012 PLATELET 118* 12/02/2012 Impression: Alonzo Urbina is a 57 y.o. WM, [facility] s/o ETOH abuse (sober 12/21), HCV (PEG IF/ribavirin stopped 2/2encephalitis), cirrhosis with hx of variceal sequential banding to eradication in 2007, hx of UGIB without obvious clear source in past, recent EGD 09/21 GIEV, mild portal gastropathy, who reports being off his medications (Welbutrin, Nadalol) since September due to expensive copay, and presents today with c/o melena/nausea in setting of increased physical exertion/aleve intake, HD stable, 4 gram decline in Hb from 11-->6.8. Differential includes PUD/DUD, variceal, AMV, ?GAVE in past EGD's, portalgastropathy. Recommendations: # Octreotide 50 mcg IV bolus, 25 mcg ggt/hr, PPI bolus 80 mg # 2 large bore PIVs at all times, transfuse PRBC (do not exceed 9, for concern for worsening portalpressures) # Admit as discussed to at least step down level of care/ICU given hx of varices in past, needs close monitoring HR/BP # Monitor coags (INR 1.3, PLT 118) # Serum tox for ETOH (given AST/ALT ratio 105/47, suspicion for ETOH use) # CFT 1 gram IV, continue x5-7 days (UGIB in cirrhosis) # NPO # Avoid NSAIDs # EGD likely in AM, call me with any concerns overnight re: care of this patient # No known hx of ascites, encephalopathy Recommendations reviewed with Primary team. Ana Camargo MD Gastroenterology Fellow I have seen and examined the patient with the GI fellow. I agree with the contents of the note. Hemodynamically stable overnight with no evidence of ongoing Bleed. EGD today as per report with no active bleeding, no significant esophageal varices, moderate portal gastropathy and small prepyloric erosions as primary findings. Will place back on B-Ben, start diet, if further evidence of bleed on b-ben will need repeat colo and possible capsule Gustabo Garza * Miscellaneous - Provider, Scanning - 12/02/2012 11:55 PM EDT * Miscellaneous - Provider, Scanning - 12/02/2012 11:55 PM EDT * Miscellaneous - Provider, Scanning - 12/02/2012 11:37 PM EDT * ED Triage - Michael Browne, RN - 12/02/2012 10:20 PM EDT Pt arrived via [facility] from [facility]. For evaluation of GI bleeding pt is alert oriented resp regular unlabored pt is dizzy when standing skin is cool and pale documented in this encounter Plan of Treatment Upcoming Encounters Date Type Department Care Team (Late st Contact Info) Description 2024 8:15 AM EST Office Visit Dermatology at [place] [address] [place] [address] Jin Nunez MD [address], [place] [address] documented as of this encounter Procedures Procedure Name Priority Date/Time Associated Diagnosis Comments MANAGER EMERGENCY SCAN 12/08/2012 3:03 PM EDT LAB SCAN 12/08/2012 2:46 PM EDT DIFFERENTIAL, AUTOMATED STAT 12/07/2012 9:02 AM EDT CBC (WITH DIFF) STAT 12/07/2012 9:02 AM EDT VIDEO CAPSULE ENDOSCOPY (WRVU 2.24) 12/06/2012 8:00 AM EDT Anemia VIDEO CAPSULE ENDOSCOPY Routine 12/06/2012 8:00 AM EDT DIFFERENTIAL, AUTOMATED Routine 12/06/2012 6:12 AM EDT CBC (WITH DIFF) Routine 12/06/2012 6:12 AM EDT HEPATIC FUNCTION PANEL Routine 12/06/2012 6:12 AM EDT BASIC METABOLIC PANEL Routine 12/06/2012 6:12 AM EDT HEMOGLOBIN AND HEMATOCRIT, BLOOD Timed 12/05/2012 6:51 PM EDT COLONOSCOPY Routine 12/05/2012 11:38 AM EDT DIFFERENTIAL, AUTOMATED Routine 12/05/2012 5:39 AM EDT CBC (WITH DIFF) Routine 12/05/2012 5:39 AM EDT BASIC METABOLIC PANEL Routine 12/05/2012 5:39 AM EDT HEMOGLOBIN AND HEMATOCRIT, BLOOD Timed 12/04/2012 9:55 PM EDT HEMOGLOBIN AND HEMATOCRIT, BLOOD Timed 12/04/2012 3:13 PM EDT APTT Timed 12/04/2012 3:13 PM EDT PROTHROMBIN TIME Timed 12/04/2012 3:13 PM EDT HEPATIC FUNCTION PANEL Timed 12/04/2012 3:13 PM EDT BASIC METABOLIC PANEL Timed 12/04/2012 3:13 PM EDT HEMOGLOBIN AND HEMATOCRIT, BLOOD STAT 12/04/2012 9:13 AM EDT HEMOGLOBIN AND HEMATOCRIT, BLOOD Timed 12/04/2012 6:32 AM EDT AMMONIA Routine 12/04/2012 6:32 AM EDT HEMOGLOBIN AND HEMATOCRIT, BLOOD Timed 12/03/2012 11:08 PM EDT HEMOGLOBIN AND HEMATOCRIT, BLOOD Timed 12/03/2012 4:50 PM EDT PREPARE RBC STAT 12/03/2012 9:40 AM EDT POCT GLUCOSE Routine 12/03/2012 6:35 AM EDT DIFFERENTIAL, AUTOMATED Routine 12/03/2012 6:33 AM EDT CBC (WITH DIFF) Routine 12/03/2012 6:33 AM EDT BASIC METABOLIC PANEL Routine 12/03/2012 6:33 AM EDT TRANSFUSE RED BLOOD CELLS Routine 12/03/2012 2:55 AM EDT POCT GLUCOSE Routine 12/03/2012 1:26 AM EDT PREPARE RBC STAT 12/02/2012 11:00 PM EDT ABORH TYPE MANUAL STAT 12/02/2012 10: 30 PM EDT SELECTED CELL SCREEN STAT 12/02/2012 10:30 PM EDT DIFFERENTIAL, AUTOMATED STAT 12/02/2012 10:30 PM EDT GOLD TUBE HOLD STAT 12/02/2012 10:30 PM EDT CREATININE Routine 12/02/2012 10:30 PM EDT APTT STAT 12/02/2012 10:30 PM EDT PROTHROMBIN TIME STAT 12/02/2012 10:3 0 PM EDT CBC (WITH DIFF) STAT 12/02/2012 10:30 PM EDT BUN STAT 12/02/2012 10:30 PM EDT GLUCOSE STAT 12/02/2012 10:30 PM EDT HEPATIC FUNCTION PANEL STAT 12/02/2012 10:30 PM EDT ELECTROLYTES PANEL STAT 12/02/2012 10 :30 PM EDT documented in this encounter Results * SCAN DOC: MANAGER EMERGENCY (12/08/2012 3:03 PM EDT) Anatomical Region Laterality Modality Other Narrative 12/08/2012 3:21 PM EDT Procedure Note Provider, Scanning - 12/08/2012 3:03 PM EDT Scanning Provider MEDIA MGR SCAN EXT O RDR/RSLT * SCAN DOC: LAB (12/08/2012 2:46 PM EDT) Narrative 12/08/2012 2:46 PM EDT Procedure Note Provider, Scanning - 12/08/2012 2:46 PM EDT Scanning Provider MEDIA MGR SCAN EXT O RDR/RSLT * Differential, Automated (12/07/2012 9:02 AM EDT) Neutrophil % 52.5 34.0 - 71.0 % CERNER MILLENNIUM Neutrophil Absolute 1.62 1.50 - 6.30 x10(3)/mcL CERNER MILLENNIUM Lymph % 31.7 19.0 - 53.0 % CERNER MILLENNIUM Lymphocytes Abs 1.0 1.0 - 3.6 x10(3)/mcL CERNER MILLENNIUM Monocyte % 11.0 4.0 - 13.0 % CERNER MILLENNIUM Monocyte Abs 0.3 0.2 - 1.0 x10(3)/mcL CERNER MILLENNIUM Eos % 3.9 0.0 - 7.0 % CERNER MILLENNIUM Eosinophils Abs 0.1 0.0 - 0.5 x10(3)/mcL CERNER MILLENNIUM Basophil % 0.6 0.0 - 2.0 % CERNER MILLENNIUM Baso Absolute 0.0 0.0 - 0.2 x10(3)/mcL CERNER MILLENNIUM Immature Gran % 0.30 0.00 - 0.66 % CERNER MILLENNIUM Comment: Immature granulocytes(IG's)percentage and absolute count will include metamyelocytes, myelocytes, and promyelocytes. Blood smears from CBCs yielding IG's will be scanned manually for concordance. If this scan disagrees with the automated IG or if promyelocytes are noted, a manual differential will be performed. Immature Gran Absolute 0.01 0.00 - 0.05 x10(3)/mcL CERNER MILLENNIUM Blood specimen (specimen) 12/07/2012 9:02 AM EDT 12/07/2012 9:07 AM EDT Cory Tellez MD HEMATOLOGY ORDERABLE S [facility] RettyIUM * (ABNORMAL) CBC (with Diff) (12/07/2012 9:02 AM EDT) White Blood Cell 3.1(L) 4.0 - 10.0 x10(3)/mc L CERNER MILLENNIUM Red Blood Cell 2.87(L) 4.63 - 6.08 x10(6)/mc L CERNER MILLENNIUM Hemoglobin 8.2(L) 13.7 - 17.5 gm/dL CERNER MILLENNIUM Hematocrit 25.6(L) 40.0 - 51.0 % CERNER MILLENNIUM Mean Cell Volume 89.2 79.0 - 92.0 fL CERNER MILLENNIUM Mean Cell Hemoglobin 28.6 25.6 - 32.2 pg CERNER MILLENNIUM Mean Cell Hemoglobin Concentration 32.0 32.0 - 36.5 gm/dL CERNER MILLENNIUM Platelet 111(L) 145 - 370 x10(3)/mc L CERNER MILLENNIUM RDW Standard Deviation 45.2 35.0 - 46.0 fL CERNER MILLENNIUM RDW coefficient of variation 15.1(H) 10.9 - 14.4 % CERNER MILLENNIUM Mean Platelet Volume 8.4(L) 9.0 - 12.0 fL CERNER MILLENNIUM Blood specimen (specimen) 12/07/2012 9:02 AM EDT 12/07/2012 9:07 AM EDT Narrative Resulting Agency Comment Spec In Lab Cory Tellez MD HEMATOLOGY ORDERABLE S THEO Rao VIDEO CAPSULE ENDOSCOPY (12/06/2012 8:00 AM EDT) VIDEO CAPSULE ENDOSCOPY [facility] ___ Patient Name: Alonzo Urbina ? Procedure Date: 12/06/2012 8:00 AM ? Date of : 1955 ? Age: 57 ? Order #: [id number] ? ___ Procedure: ? Video capsule endoscopy Indications: ? Obscure gastrointestinal bleeding Providers: ? Stefanie Patterson MD Referring MD: ?Ernesto Cardona MD Medicines: ? None Complications: ? No immediate complications. ___ Procedure: ? Pre-Anesthesia Assessment: ? - After reviewing the risks and ? benefits, the patient was deemed in ? satisfactory condition to undergo the ? procedure. ? The SensorArray was applied to the ? patient's abdomen with adhesive pads ? and connected to the DataRecorder ? around the waist. The DataRecorder ? was checked to ensure green light was ? flashing. The patient was then ? instructed to ingest the M2A capsule ? and provided a glass of water. This ? was accomplished without difficulty. ? The patient was then given ? instructions for eating and drinking ? and was instructed to periodically ? monitor the DataRecorder throughout ? the day to insure proper transmission. ? Approximately eight hours later the ? patient returned for removal of the ? SensorArray. ? Findings: ? Images of the esophagus, stomach and small bowel were ? obtained from the swallowed capsule and reviewed. ? The capsule passed the pylorus in 10-min and the IC ? valve in 4-hr 16-min for a total small bowel transit ? time of 4-hr 6-min. ? There was some scattered red mucosal erythema in the ? stomach consistent with portal gastropathy. ? In the likely ileum (3-hr and 3-hr 22-min) there were ? focal erythematous flat 1-2 mm lesions most ? consistent with angioectasia vs. erosion. There was ? no bleeding or melena on this exam. ? Impression: ?1. Portal gastropathy ? 2. Two likely AVMs (vs. erosions) in ? the distal ileum Recommendation: ?Follow-up per primary team. ? _ L. Gerson Patterson MD 12/08/2012 7:16 PM Number of Addenda: 0 Note Initiated On: 12/08/2012 7:11 PM [employer]ATION 12/06/2012 8:00 AM EDT Ernesto Cardona MD GENERAL SURGICAL ORD ERABLES [employer] * (ABNORMAL) Differential, Automated (12/06/2012 6:12 AM EDT) Neutrophil % 44.3 34.0 - 71.0 % CERNER MILLENNIUM Neutrophil Absolute 0.99(L) 1.50 - 6.30 x10(3)/mc L CERNER MILLENNIUM Lymph % 37.9 19.0 - 53.0 % CERNER MILLENNIUM Lymphocytes Abs 0.8(L) 1.0 - 3.6 x10(3)/mc L CERNER MILLENNIUM Monocyte % 12.1 4.0 - 13.0 % CERNER MILLENNIUM Monocyte Abs 0.3 0.2 - 1.0 x10(3)/mc L CERNER MILLENNIUM Eos % 4.9 0.0 - 7.0 % CERNER MILLENNIUM Eosinophils Abs 0.1 0.0 - 0.5 x10(3)/mc L CERNER MILLENNIUM Basophil % 0.4 0.0 - 2.0 % CERNER MILLENNIUM Baso Absolute 0.0 0.0 - 0.2 x10(3)/mc L CERNER MILLENNIUM Immature Gran % 0.40 0.00 - 0.66 % CERNER MILLENNIUM Comment: Immature granulocytes(IG's)percentage and absolute count will include metamyelocytes, myelocytes, and promyelocytes. Blood smears from CBCs yielding IG's will be scanned manually for concordance. If this scan disagrees with the automated IG or if promyelocytes are noted, a manual differential will be performed. Immature Gran Absolute 0.01 0.00 - 0.05 x10(3)/mc L CERNER MILLENNIUM Blood specimen (specimen) 12/06/2012 6:12 AM EDT 12/06/2012 6:50 AM EDT Param Granados MD HEMATOLOGY ORDERAB LES [facility] CORINEENNIUM * (ABNORMAL) Hepatic Function Panel (12/06/2012 6:12 AM EDT) Protein, Total 5.1(L) 6.4 - 8.3 gm/dL CERNER MILLENNIUM Albumin 2.8(L) 3.2 - 5.2 gm/dL CERNER MILLENNIUM Aspartate Aminotransferase 258(H) 0 - 39 unit/L CERNER MILLENNIUM Alanine Aminotransferase 101(H) 0 - 55 unit/L CERNER MILLENNIUM Alkaline Phosphatase 51 40 - 120 unit/L CERNER MILLENNIUM Bilirubin, Total 0.6 0.2 - 1.3 mg/dL CERNER MILLENNIUM Bilirubin, Direct 0.3 0.0 - 0.3 mg/dL CERNER MILLENNIUM Blood specimen (specimen) 12/06/2012 6:12 AM EDT 12/06/2012 6:50 AM EDT Narrative Resulting Agency Comment Spec In Lab Cory Tellez MD CHEMISTRY ORDERABLES [facility] ADDIIUM * (ABNORMAL) Basic Metabolic Panel (non-fasting) (12/06/2012 6:12 AM EDT) Glucose 126 60 - 199 mg/dL CERNER MILLENNIUM Comment:Diabetes: >=200 mg/d L plus symptoms Blood Urea Nitrogen 8(L) 10 - 20 mg/dL CERNER MILLENNIUM Creatinine 0.84 0.80 - 1.50 mg/dL CERNER MILLENNIUM Comment: Please note that the pediatric reference intervals supplied above were not validated at [facility]. Results from pediatric patients should be interpreted in conjunction to the patient's age, height and muscle mass. Sodium 140 135 - 145 mmol/L CERNER MILLENNIUM Potassium 3.9 3.5 - 5.0 mmol/L CERNER MILLENNIUM Comment: Please note: ??Patients with WBC >100,000 may have falsely elevated Potassium levels. ??For accurate Potassium quantification in these patients send serum separator tube (gold top) for subsequent determinations. ??Contact the Clinical Chemistry Laboratory if there are any questions. Chloride 113(H) 98 - 107 mmol/L CERNER MILLENNIUM Carbon Dioxide 22 22 - 31 mmol/L CERNER MILLENNIUM Anion Gap 5 5 - 15 mmol/L CERNER MILLENNIUM Calcium 7.8(L) 8.5 - 10.5 mg/dL CERNER MILLENNIUM Est Glomerular Filtration Rate >60 >=60 CERNER MILLENNIUM Comment: This estimated GFR (eGFR) value was calculated using the MDRD equation which has been validated on patients between the ages of 18 and 70. The MDRD should not be used to assess kidney function in patients < 18 years of age or in patients with extremes of body mass, or in patients with acute kidney failure. This value should be multiplied by 1.2 for patients. For further information please copy and paste the following links into your internet browser. http://www.nkdep.nih.gov/lab-evaluation.shtml http://www.kidney.org/professionals/ Blood specimen (specimen) 12/06/2012 6:12 AM EDT 12/06/2012 6:50 AM EDT Narrative Resulting Agency Comment Spec In Lab Param Granados MD CHEMISTRY ORDERABL ES THEO ARCOS * (ABNORMAL) CBC (with Diff) (12/06/2012 6:12 AM EDT) White Blood Cell 2.2(L) 4.0 - 10.0 x10(3)/mc L CERNER MILLENNIUM Red Blood Cell 2.90(L) 4.63 - 6.08 x10(6)/mc L CERNER MILLENNIUM Hemoglobin 8.4(L) 13.7 - 17.5 gm/dL CERNER MILLENNIUM Hematocrit 25.6(L) 40.0 - 51.0 % CERNER MILLENNIUM Mean Cell Volume 88.3 79.0 - 92.0 fL CERNER MILLENNIUM Mean Cell Hemoglobin 29.0 25.6 - 32.2 pg CERNER MILLENNIUM Mean Cell Hemoglobin Concentration 32.8 32.0 - 36.5 gm/dL CERNER MILLENNIUM Platelet 98(L) 145 - 370 x10(3)/mc L CERNER MILLENNIUM RDW Standard Deviation 45.1 35.0 - 46.0 fL CERNER MILLENNIUM RDW coefficient of variation 14.7(H) 10.9 - 14.4 % CERNER MILLENNIUM Mean Platelet Volume 9.2 9.0 - 12.0 fL CERNER MILLENNIUM Blood specimen (specimen) 12/06/2012 6:12 AM EDT 12/06/2012 6:50 AM EDT Narrative Resulting Agency Comment Spec In Lab Param Granados MD HEMATOLOGY ORDERAB LES THEO FONTANAIUM * (ABNORMAL) Hemoglobin and Hematocrit, blood (12/05/2012 6:51 PM EDT) Hemoglobin 8.9(L) 13.7 - 17.5 gm/dL CERNER MILLENNIUM Hematocrit 27.3(L) 40.0 - 51.0 % CERNER CORINEENNIUM Blood specimen (specimen) 12/05/2012 6:51 PM EDT 12/05/2012 6:55 PM EDT Narrative Resulting Agency Comment Spec In Lab Cory Tellez MD HEMATOLOGY ORDERABLE S THEO FONTANAIUM * COLONOSCOPY (12/05/2012 11:38 AM EDT) COLONOSCOPY [facility] Endoscopy ___ Patient Name: Alonzo Urbina ? Procedure Date: 12/05/2012 11:38 AM ? Date of : 1955 ? Age: 57 ? Order #: [id number] ? ___ Procedure: ? Colonoscopy Indications: ? Gastrointestinal occult blood loss Providers: ? Ernesto Cardona MD, Ariana Austin, ? , Davi Kapadia, RN, Janie Blood ? Marv Environmental Management Specialist Referring MD: ? Medicines: ? Midazolam 4 mg IV, [...] ? throughout the colon, may be ? communications representative of portal hypertension. Recommendation: ?- Although [...] Cardona MD GENERAL SURGICAL ORD ERABLES [employer] * (ABNORMAL) Differential, Automated (12/05/2012 5:39 AM EDT) Neutrophil % 49.9 34.0 - 71.0 % CERNER MILLENNIUM Neutrophil Absolute 1.23(L) 1.50 - 6.30 x10(3)/mc L CERNER MILLENNIUM Lymph % 34.8 19.0 - 53.0 % CERNER MILLENNIUM Lymphocytes Abs 0.9(L) 1.0 - 3.6 x10(3)/mc L CERNER MILLENNIUM Monocyte % 10.5 4.0 - 13.0 % CERNER MILLENNIUM Monocyte Abs 0.3 0.2 - 1.0 x10(3)/mc L CERNER MILLENNIUM Eos % 3.6 0.0 - 7.0 % CERNER MILLENNIUM Eosinophils Abs 0.1 0.0 - 0.5 x10(3)/mc L CERNER MILLENNIUM Basophil % 0.8 0.0 - 2.0 % CERNER MILLENNIUM Baso Absolute 0.0 0.0 - 0.2 x10(3)/mc L CERNER MILLENNIUM Immature Gran % 0.40 0.00 - 0.66 % CERNER MILLENNIUM Comment: Immature granulocytes(IG's)percentage and absolute count will include metamyelocytes, myelocytes, and promyelocytes. Blood smears from CBCs yielding IG's will be scanned manually for concordance. If this scan disagrees with the automated IG or if promyelocytes are noted, a manual differential will be performed. Immature Gran Absolute 0.01 0.00 - 0.05 x10(3)/mc L CERNER MILLENNIUM Blood specimen (specimen) 12/05/2012 5:39 AM EDT 12/05/2012 6:00 AM EDT Param Granados MD HEMATOLOGY ORDERAB LES [facility] * (ABNORMAL) Basic Metabolic Panel (non-fasting) (12/05/2012 5:39 AM EDT) [facility] Glucose 135 60 - 199 mg/dL CERNER MILLENNIUM Comment:Diabetes: >=200 mg/d L plus symptoms Blood Urea Nitrogen 14 10 - 20 mg/dL CERNER MILLENNIUM Creatinine 0.92 0.80 - 1.50 mg/dL CERNER MILLENNIUM Comment: Please note that the pediatric reference intervals supplied above were not validated at [facility]. Results from pediatric patients should be interpreted in conjunction to the patient's age, height and muscle mass. Sodium 142 135 - 145 mmol/L CERNER MILLENNIUM Potassium 3.6 3.5 - 5.0 mmol/L CERNER MILLENNIUM Comment: Please note: ??Patients with WBC >100,000 may have falsely elevated Potassium levels. ??For accurate Potassium quantification in these patients send serum separator tube (gold top) for subsequent determinations. ??Contact the Clinical Chemistry Laboratory if there are any questions. Chloride 113(H) 98 - 107 mmol/L CERNER MILLENNIUM Carbon Dioxide 20(L) 22 - 31 mmol/L CERNER MILLENNIUM Anion Gap 9 5 - 15 mmol/L CERNER MILLENNIUM Calcium 7.7(L) 8.5 - 10.5 mg/dL CERNER MILLENNIUM Est Glomerular Filtration Rate >60 >=60 CERNER MILLENNIUM Comment: This estimated GFR (eGFR) value was calculated using the MDRD equation which has been validated on patients between the ages of 18 and 70. The MDRD should not be used to assess kidney function in patients < 18 years of age or in patients with extremes of body mass, or in patients with acute kidney failure. This value should be multiplied by 1.2 for patients. For further information please copy and paste the following links into your internet browser. http://www.nkdep.nih.gov/lab-evaluation.shtml http://www.kidney.org/professionals/ Blood specimen (specimen) 12/05/2012 5:39 AM EDT 12/05/2012 6:00 AM EDT Narrative Resulting Agency Comment Spec In Lab Param Granados MD CHEMISTRY ORDERABL ES CERSIDDHARTH FONTANAIUM * (ABNORMAL) CBC (with Diff) (12/05/2012 5:39 AM EDT) White Blood Cell 2.5(L) 4.0 - 10.0 x10(3)/mc L CERNER MILLENNIUM Red Blood Cell 2.79(L) 4.63 - 6.08 x10(6)/mc L CERNER MILLENNIUM Hemoglobin 8.0(L) 13.7 - 17.5 gm/dL CERNER MILLENNIUM Hematocrit 24.3(L) 40.0 - 51.0 % CERNER MILLENNIUM Mean Cell Volume 87.1 79.0 - 92.0 fL CERNER MILLENNIUM Mean Cell Hemoglobin 28.7 25.6 - 32.2 pg CERNER MILLENNIUM Mean Cell Hemoglobin Concentration 32.9 32.0 - 36.5 gm/dL CERNER MILLENNIUM Platelet 98(L) 145 - 370 x10(3)/mc L CERNER MILLENNIUM RDW Standard Deviation 45.2 35.0 - 46.0 fL CERNER MILLENNIUM RDW coefficient of variation 14.5(H) 10.9 - 14.4 % CERNER MILLENNIUM Mean Platelet Volume 9.3 9.0 - 12.0 fL CERBANNER MILLENNIUM Blood specimen (specimen) 12/05/2012 5:39 AM EDT 12/05/2012 6:00 AM EDT Narrative Resulting Agency Comment Spec In Lab Param Granados MD HEMATOLOGY ORDERAB L[facility] FONTANAI[facility] * (ABNORMAL) Hemoglobin and Hematocrit, blood (12/04/2012 9:55 PM EDT) Hemoglobin 7.6(L) 13.7 - 17.5 gm/dL [facility] Hematocrit 22.9(L) 40.0 - 51.0 % [facility] CORINEENNIUM Blood specimen (specimen) 12/04/2012 9:55 PM EDT 12/04/2012 10:07 PM EDT Narrative Resulting Agency Comment Spec In Lab Cory Tellez MD HEMATOLOGY ORDERABLE S [facility] ADDIIUM * APTT (12/04/2012 3:13 PM EDT) Partial Thromboplastin Time 31 25 - 35 sec [facility] CORINEENNIUM Comment: Recommended therapeutic PTT range for full dose unfractionated heparin is 80-114 seconds. Blood specimen (specimen) 12/04/2012 3:13 PM EDT 12/04/2012 3:26 PM EDT Narrative Resulting Agency Comment Spec In Lab Cory Tellez MD HEMATOLOGY ORDERABLE S CERSIDDHARTH POOLENNIUM * (ABNORMAL) Hemoglobin and Hematocrit, blood (12/04/2012 3:13 PM EDT) Hemoglobin 8.4(L) 13.7 - 17.5 gm/dL CERNER MILLENNIUM Hematocrit 25.8(L) 40.0 - 51.0 % CERNER MILLENNIUM Blood specimen (specimen) 12/04/2012 3:13 PM EDT 12/04/2012 3:25 PM EDT Narrative Resulting Agency Comment Spec In Lab Cory Tellez MD HEMATOLOGY ORDERABLE S Performing Organization Address [facility]ZIP Co de Phone Number CERSIDDHARTH POOLENNIUM * (ABNORMAL) Basic Metabolic Panel (non-fasting) (12/04/2012 3:13 PM EDT) Glucose 118 60 - 199 mg/dL CERNER MILLENNIUM Comment:Diabetes: >=200 mg/d L plus symptoms Blood Urea Nitrogen 20 10 - 20 mg/dL CERNER MILLENNIUM Creatinine 0.94 0.80 - 1.50 mg/dL CERNER MILLENNIUM Comment: Please note that the pediatric reference intervals supplied above were not validated at [facility]. Results from pediatric patients should be interpreted in conjunction to the patient's age, height and muscle mass. Sodium 142 135 - 145 mmol/L CERNER MILLENNIUM Potassium 3.0(Criti agustin) 3.5 - 5.0 mmol/L CERNER MILLENNIUM Comment: Result rechecked. Called by: RACHANA, Read back by: Sari Leo, Date/Time:12/04/12 16:23. Please note: ??Patients with WBC >100,000 may have falsely elevated Potassium levels. ??For accurate Potassium quantification in these patients send serum separator tube (gold top) for subsequent determinations. ??Contact the Clinical Chemistry Laboratory if there are any questions. Chloride 110(H) 98 - 107 mmol/L CERNER MILLENNIUM Carbon Dioxide 20(L) 22 - 31 mmol/L CERNER MILLENNIUM Anion Gap 12 5 - 15 mmol/L CERNER MILLENNIUM Calcium 7.9(L) 8.5 - 10.5 mg/dL CERNER MILLENNIUM Est Glomerular Filtration Rate >60 >=60 CERNER MILLENNIUM Comment: This estimated GFR (eGFR) value was calculated using the MDRD equation which has been validated on patients between the ages of 18 and 70. The MDRD should not be used to assess kidney function in patients < 18 years of age or in patients with extremes of body mass, or in patients with acute kidney failure. This value should be multiplied by 1.2 for patients. For further information please copy and paste the following links into your internet browser. http://www.nkdep.nih.gov/lab-evaluation.shtml http://www.kidney.org/professionals/ Blood specimen (specimen) 12/04/2012 3:13 PM EDT 12/04/2012 3:26 PM EDT Narrative Resulting Agency Comment Spec In Lab Cory Tellez MD CHEMISTRY ORDERABLES Performing Organization Address [facility] Co de Phone Number CERNER MILLENNIUM * (ABNORMAL) Hepatic Function Panel (12/04/2012 3:13 PM EDT) Protein, Total 5.9(L) 6.4 - 8.3 gm/dL CERNER MILLENNIUM Albumin 3.3 3.2 - 5.2 gm/dL CERNER MILLENNIUM Aspartate Aminotransferase 364(H) 0 - 39 unit/L CERNER MILLENNIUM Comment:result rechecked-NM Alanine Aminotransferase 108(H) 0 - 55 unit/L CERNER MILLENNIUM Comment:result rechecked-NM Alkaline Phosphatase 57 40 - 120 unit/L CERNER MILLENNIUM Bilirubin, Total 1.1 0.2 - 1.3 mg/dL CERNER MILLENNIUM Bilirubin, Direct 0.6(H) 0.0 - 0.3 mg/dL CERNER MILLENNIUM Comment:result rechecked-NM Blood specimen (specimen) 12/04/2012 3:13 PM EDT 12/04/2012 3:26 PM EDT Narrative Resulting Agency Comment Spec In Lab Cory Tellez MD CHEMISTRY ORDERABLES Performing Organization Address [facility] de Phone Number THEO FONTANAIUM * (ABNORMAL) Prothrombin Time (12/04/2012 3:13 PM EDT) Prothrombin Time 16.2(H) 12.0 - 15.0 sec CERNER MILLENNIUM Comment: [facility] Transfusion Committee Guidelines: INR less than 2.0, PTT less than OR equal to 43.5 seconds, or Fibrinogen greater than or equal to 100 mg/dl indicate adequate procoagulant activity for hemostasis in patients without underlying bleeding disorders. International Normalization Ratio 1.3(H) 0.9 - 1.1 CERNER MILLENNIUM Blood specimen (specimen) 12/04/2012 3:13 PM EDT 12/04/2012 3:26 PM EDT Narrative Resulting Agency Comment Spec In Lab Cory Tellez MD HEMATOLOGY ORDERABLE S Performing Organization Address [facility] de Phone Number THEO FONTANAIUM * (ABNORMAL) Hemoglobin and Hematocrit, blood (12/04/2012 9:13 AM EDT) Hemoglobin 7.7(L) 13.7 - 17.5 gm/dL CERNER MILLENNIUM Hematocrit 23.9(L) 40.0 - 51.0 % CERNER MILLENNIUM Blood specimen (specimen) 12/04/2012 9:13 AM EDT 12/04/2012 9:19 AM EDT Narrative Resulting Agency Comment Spec In Lab Cory Tellez MD HEMATOLOGY ORDERABLE S Performing Organization Address [facility] de Phone Number THEO FONTANAIUM * (ABNORMAL) Hemoglobin and Hematocrit, blood (12/04/2012 6:32 AM EDT) Hemoglobin 8.0(L) 13.7 - 17.5 gm/dL CERNER MILLENNIUM Hematocrit 23.8(L) 40.0 - 51.0 % CERNER MILLENNIUM Blood specimen (specimen) 12/04/2012 6:32 AM EDT 12/04/2012 6:58 AM EDT Narrative Resulting Agency Comment Spec In Lab Cory Tellez MD HEMATOLOGY ORDERABLE S CERBANNER CORINEENNIUM * Ammonia (12/04/2012 6:32 AM EDT) Ammonia 30 16 - 60 mcmol/L CERNER MILLENNIUM Blood specimen (specimen) 12/04/2012 6:32 AM EDT 12/04/2012 6:57 AM EDT Narrative Resulting Agency Comment Spec In Lab Cory Tellez MD CHEMISTRY ORDERABLES CERBANNER CORINEENNIUM * (ABNORMAL) Hemoglobin and Hematocrit, blood (12/03/2012 11:08 PM EDT) Hemoglobin 8.2(L) 13.7 - 17.5 gm/dL CERNER MILLENNIUM Hematocrit 24.5(L) 40.0 - 51.0 % CERNER MILLENNIUM Blood specimen (specimen) 12/03/2012 11:08 PM EDT 12/03/2012 11:13 PM EDT Narrative Resulting Agency Comment Spec In Lab Cory Tellez MD HEMATOLOGY ORDERABLE S Performing Organization Address [facility] Co de Phone Number CERBANNER MILLENNIUM * (ABNORMAL) Hemoglobin and Hematocrit, blood (12/03/2012 4:50 PM EDT) Hemoglobin 8.2(L) 13.7 - 17.5 gm/dL CERNER MILLENNIUM Hematocrit 25.1(L) 40.0 - 51.0 % CERNER MILLENNIUM Blood specimen (specimen) 12/03/2012 4:50 PM EDT 12/03/2012 4:50 PM EDT Narrative Resulting Agency Comment Spec In Lab Cory Tellez MD HEMATOLOGY ORDERABLE S CERBANNER CORINEENNIUM * Transfuse RBC (12/03/2012 12:06 PM EDT) Cory Tellez MD NURSING TREATMENT OR DERABLES - BLOOD ADMIN * Prepare RBC (12/03/2012 9:40 AM EDT) Dispensed? Yes THEO FONTANAIUM Blood specimen (specimen) 12/03/2012 9:40 AM EDT 12/03/2012 9:36 AM EDT Cory Tellez MD BLOOD BANK PRODUCT O RDERABLES THEO FONTANAIUM * POCT Glucose (12/03/2012 6:35 AM EDT) Pathologist [facility] [place] Glucose, POC 129 60 - 199 mg/dL THEO FONTANAIUM Comment: Supplemental ranges: <110 mg/dL before meals <200 mg/dL all other times of the day Blood specimen (specimen) 12/03/2012 6:35 AM EDT 12/03/2012 6:35 AM EDT Param Granados MD POINT OF CARE TEST ORDERABLES Performing Organization Address [facility]/ZIP Co de Phone Number THEO ARCOS * Differential, Automated (12/03/2012 6:33 AM EDT) Neutrophil % 56.9 34.0 - 71.0 % CERNER MILLENNIUM Neutrophil Absolute 2.67 1.50 - 6.30 x10(3)/mcL CERNER MILLENNIUM Lymph % 31.5 19.0 - 53.0 % CERNER MILLENNIUM Lymphocytes Abs 1.5 1.0 - 3.6 x10(3)/mcL CERNER MILLENNIUM Monocyte % 8.9 4.0 - 13.0 % CERNER MILLENNIUM Monocyte Abs 0.4 0.2 - 1.0 x10(3)/mcL CERNER MILLENNIUM Eos % 1.9 0.0 - 7.0 % CERNER MILLENNIUM Eosinophils Abs 0.1 0.0 - 0.5 x10(3)/mcL CERNER MILLENNIUM Basophil % 0.4 0.0 - 2.0 % CERNER MILLENNIUM Baso Absolute 0.0 0.0 - 0.2 x10(3)/mcL CERNER MILLENNIUM Immature Gran % 0.40 0.00 - 0.66 % CERNER MILLENNIUM Comment: Immature granulocytes(IG's)percentage and absolute count will include metamyelocytes, myelocytes, and promyelocytes. Blood smears from CBCs yielding IG's will be scanned manually for concordance. If this scan disagrees with the automated IG or if promyelocytes are noted, a manual differential will be performed. Immature Gran Absolute 0.02 0.00 - 0.05 x10(3)/mcL CERNER MILLENNIUM Blood specimen (specimen) 12/03/2012 6:33 AM EDT 12/03/2012 6:36 AM EDT Param Granados MD HEMATOLOGY ORDERAB LES CERNER MILLENNIUM * (ABNORMAL) Basic Metabolic Panel (non-fasting) (12/03/2012 6:33 AM EDT) Pathologist [facility] [place] Glucose 128 60 - 199 mg/dL CERNER MILLENNIUM Comment:Diabetes: >=200 mg/d L plus symptoms Blood Urea Nitrogen 42(H) 10 - 20 mg/dL CERNER MILLENNIUM Creatinine 0.86 0.80 - 1.50 mg/dL CERNER MILLENNIUM Comment: Please note that the pediatric reference intervals supplied above were not validated at [facility]. Results from pediatric patients should be interpreted in conjunction to the patient's age, height and muscle mass. Sodium 142 135 - 145 mmol/L CERNER MILLENNIUM Potassium 4.1 3.5 - 5.0 mmol/L CERNER MILLENNIUM Comment: Please note: ??Patients with WBC >100,000 may have falsely elevated Potassium levels. ??For accurate Potassium quantification in these patients send serum separator tube (gold top) for subsequent determinations. ??Contact the Clinical Chemistry Laboratory if there are any questions. Chloride 115(H) 98 - 107 mmol/L CERNER MILLENNIUM Carbon Dioxide 20(L) 22 - 31 mmol/L CERNER MILLENNIUM Anion Gap 7 5 - 15 mmol/L CERNER MILLENNIUM Calcium 7.8(L) 8.5 - 10.5 mg/dL CERNER MILLENNIUM Est Glomerular Filtration Rate >60 >=60 CERNER MILLENNIUM Comment: This estimated GFR (eGFR) value was calculated using the MDRD equation which has been validated on patients between the ages of 18 and 70. The MDRD should not be used to assess kidney function in patients < 18 years of age or in patients with extremes of body mass, or in patients with acute kidney failure. This value should be multiplied by 1.2 for patients. For further information please copy and paste the following links into your internet browser. http://www.nkdep.nih.gov/lab-evaluation.shtml http://www.kidney.org/professionals/ Blood specimen (specimen) 12/03/2012 6:33 AM EDT 12/03/2012 6:36 AM EDT Narrative Resulting Agency Comment Spec In Lab Param Granados MD CHEMISTRY ORDERABL ES CERBANNER MILLENNIUM * (ABNORMAL) CBC (with Diff) (12/03/2012 6:33 AM EDT) White Blood Cell 4.7 4.0 - 10.0 x10(3)/mc L CERNER MILLENNIUM Red Blood Cell 2.50(L) 4.63 - 6.08 x10(6)/mc L CERNER MILLENNIUM Hemoglobin 6.9(L) 13.7 - 17.5 gm/dL CERNER MILLENNIUM Hematocrit 21.4(L) 40.0 - 51.0 % CERNER MILLENNIUM Mean Cell Volume 85.6 79.0 - 92.0 fL CERNER MILLENNIUM Mean Cell Hemoglobin 27.6 25.6 - 32.2 pg CERNER MILLENNIUM Mean Cell Hemoglobin Concentration 32.2 32.0 - 36.5 gm/dL CERNER MILLENNIUM Platelet 110(L) 145 - 370 x10(3)/mc L CERNER MILLENNIUM RDW Standard Deviation 42.2 35.0 - 46.0 fL CERNER MILLENNIUM RDW coefficient of variation 13.6 10.9 - 14.4 % CERNER MILLENNIUM Mean Platelet Volume 9.4 9.0 - 12.0 fL CERNER MILLENNIUM Blood specimen (specimen) 12/03/2012 6:33 AM EDT 12/03/2012 6:36 AM EDT Narrative Resulting Agency Comment Spec In Lab Param Granados MD HEMATOLOGY ORDERAB LES Performing Organization Address [facility] de Phone Number THEO ARCOS * Transfuse RBC (12/03/2012 5:33 AM EDT) Sharon Gill MD NURSING TREATMENT O RDERABLES - BLOOD ADMIN * Transfuse RBC (12/03/2012 5:33 AM EDT) Sharon Gill MD NURSING TREATMENT O RDERABLES - BLOOD ADMIN * POCT Glucose (12/03/2012 1:26 AM EDT) Glucose, POC 105 60 - 199 mg/dL [facility] Comment: Supplemental ranges: <110 mg/dL before meals <200 mg/dL all other times of the day Blood specimen (specimen) 12/03/2012 1:26 AM EDT 12/03/2012 1:26 AM EDT Param Granados MD POINT OF CARE TEST ORDERABLES Performing Organization Address [place] Phone Number THEO ARCOS * Prepare RBC (12/02/2012 11:00 PM EDT) Dispensed? Yes [facility] Blood specimen (specimen) 12/02/2012 11:00 PM EDT 12/02/2012 10:59 PM EDT Sharon Gill MD BLOOD BANK PRODUCT ORDERABLES Performing Organization Address [facility] de Phone Number [facility]AN[facility] * Selected Cell Screen (12/02/2012 10:30 PM EDT) Ab Screen Interp Previously identified Anti-c, -E. No additional alloantibodies detected.* *Due to the presence of alloantibody(ies) additional time is required for preparation of Red Cell Products. See initial antibody identification report for additional information. CERNER MILLENNIUM Blood specimen (specimen) 12/02/2012 10:30 PM EDT 12/02/2012 10:35 PM EDT Narrative Resulting Agency Comment Spec In Lab Sharon Gill MD BLOOD BANK LAB ORDJluis [place] CERNER MILLENNIUM * ABORh Type Manual (12/02/2012 10:30 PM EDT) Expires at [id number] on: [id number] CERNER MILLENNIUM ABORH Type A Pos CERNER MILLENNIUM Blood specimen (specimen) 12/02/2012 10:30 PM EDT 12/02/2012 10:35 PM EDT Narrative Resulting Agency Comment Spec In Lab Sharon Gill MD BLOOD BANK LAB ORDJluis [place] CERNER MILLENNIUM * Differential, Automated (12/02/2012 10:30 PM EDT) Neutrophil % 61.7 34.0 - 71.0 % CERNER MILLENNIUM Neutrophil Absolute 3.64 1.50 - 6.30 x10(3)/mcL CERNER MILLENNIUM Lymph % 25.0 19.0 - 53.0 % CERNER MILLENNIUM Lymphocytes Abs 1.5 1.0 - 3.6 x10(3)/mcL CERNER MILLENNIUM Monocyte % 11.5 4.0 - 13.0 % CERNER MILLENNIUM Monocyte Abs 0.7 0.2 - 1.0 x10(3)/mcL CERNER MILLENNIUM Eos % 1.0 0.0 - 7.0 % CERNER MILLENNIUM Eosinophils Abs 0.1 0.0 - 0.5 x10(3)/mcL CERNER MILLENNIUM Basophil % 0.5 0.0 - 2.0 % CERNER MILLENNIUM Baso Absolute 0.0 0.0 - 0.2 x10(3)/mcL CERNER MILLENNIUM Immature Gran % 0.30 0.00 - 0.66 % CERNER MILLENNIUM Comment: Immature granulocytes(IG's)percentage and absolute count will include metamyelocytes, myelocytes, and promyelocytes. Blood smears from CBCs yielding IG's will be scanned manually for concordance. If this scan disagrees with the automated IG or if promyelocytes are noted, a manual differential will be performed. Immature Gran Absolute 0.02 0.00 - 0.05 x10(3)/mcL CERSIDDHARTH POOLENNIUM Blood specimen (specimen) 12/02/2012 10:30 PM EDT 12/02/2012 10:33 PM EDT Sharon Gill MD HEMATOLOGY ORDERABL ES Performing Organization Address [facility] Co de Phone Number THEO POOLENNIUM * Gold Tube HOLD (12/02/2012 10:30 PM EDT) Gold Hold Sample in lab. THEO FONTANAIUM Blood specimen (specimen) 12/02/2012 10:30 PM EDT 12/02/2012 10:33 PM EDT Sharon Gill MD CHEMISTRY ORDERABLE S Performing Organization Address [facility] de Phone Number THEO POOLENNIUM * (ABNORMAL) APTT (12/02/2012 10:30 PM EDT) Partial Thromboplastin Time 36(H) 25 - 35 sec [facility] Comment: Recommended therapeutic PTT range for full dose unfractionated heparin is 80-114 seconds. Blood specimen (specimen) 12/02/2012 10:30 PM EDT 12/02/2012 10:33 PM EDT Narrative Resulting Agency Comment Spec In Lab Sharon Gill MD HEMATOLOGY ORDERABL ES Performing Organization Address [facility] Co de Phone Number THEO POOLENNIUM * (ABNORMAL) Prothrombin Time (12/02/2012 10:30 PM EDT) Prothrombin Time 16.8(H) 12.0 - 15.0 sec [facility] [employer]UNITED [employer] [facility] [employer] Comment: [facility] Transfusion Committee Guidelines: INR less than 2.0, PTT less than OR equal to 43.5 seconds, or Fibrinogen greater than or equal to 100 mg/dl indicate adequate procoagulant activity for hemostasis in patients without underlying bleeding disorders. International Normalization Ratio 1.3(H) 0.9 - 1.1 CERNER MILLENNIUM Blood specimen (specimen) 12/02/2012 10:30 PM EDT 12/02/2012 10:33 PM EDT Narrative Resulting Agency Comment Spec In Lab Sharon Gill MD HEMATOLOGY ORDERABL ES CERNER MILLENNIUM * (ABNORMAL) Hepatic Function Panel (12/02/2012 10:30 PM EDT) Protein, Total 5.3(L) 6.4 - 8.3 gm/dL CERNER MILLENNIUM Albumin 2.8(L) 3.2 - 5.2 gm/dL CERNER MILLENNIUM Aspartate Aminotransferase 105(H) 0 - 39 unit/L CERNER MILLENNIUM Alanine Aminotransferase 47 0 - 55 unit/L CERNER MILLENNIUM Alkaline Phosphatase 56 40 - 120 unit/L CERNER MILLENNIUM Bilirubin, Total 0.6 0.2 - 1.3 mg/dL CERNER MILLENNIUM Bilirubin, Direct 0.3 0.0 - 0.3 mg/dL CERNER MILLENNIUM Blood specimen (specimen) 12/02/2012 10:30 PM EDT 12/02/2012 10:33 PM EDT Narrative Resulting Agency Comment Spec In Lab Sharon Gill MD CHEMISTRY ORDERABLE S CERNER MILLENNIUM * Glucose, random (12/02/2012 10:30 PM EDT) Glucose 121 60 - 199 mg/dL CERNER MILLENNIUM Comment:Diabetes: >=200 mg/d L plus symptoms Blood specimen (specimen) 12/02/2012 10:30 PM EDT 12/02/2012 10:33 PM EDT Narrative Resulting Agency Comment Spec In Lab Sharon Gill MD CHEMISTRY ORDERABLE S CERNER MILLENNIUM * (ABNORMAL) Creatinine (12/02/2012 10:30 PM EDT) Creatinine 0.76(L) 0.80 - 1.50 mg/dL CERNER MILLENNIUM Comment: Please note that the pediatric reference intervals supplied above were not validated at [facility]. Results from pediatric patients should be interpreted in conjunction to the patient's age, height and muscle mass. Est Glomerular Filtration Rate >60 >=60 CERNER MILLENNIUM Comment: This estimated GFR (eGFR) value was calculated using the MDRD equation which has been validated on patients between the ages of 18 and 70. The MDRD should not be used to assess kidney function in patients < 18 years of age or in patients with extremes of body mass, or in patients with acute kidney failure. This value should be multiplied by 1.2 for patients. For further information please copy and paste the following links into your internet browser. http://www.nkdep.nih.gov/lab-evaluation.shtml http://www.kidney.org/professionals/ Blood specimen (specimen) 12/02/2012 10:30 PM EDT 12/02/2012 10:33 PM EDT Narrative Resulting Agency Comment Spec In Lab Sharon Gill MD CHEMISTRY ORDERABLE S [facility] CORINEENNIUM * (ABNORMAL) BUN (12/02/2012 10:30 PM EDT) Blood Urea Nitrogen 41(H) 10 - 20 mg/dL CERNER MILLENNIUM Blood specimen (specimen) 12/02/2012 10:30 PM EDT 12/02/2012 10:33 PM EDT Narrative Resulting Agency Comment Spec In Lab Sharon Gill MD CHEMISTRY ORDERABLE S [facility] CORINEENNIUM * (ABNORMAL) Electrolytes panel (12/02/2012 10:30 PM EDT) Sodium 140 135 - 145 mmol/L CERNER MILLENNIUM Potassium 4.3 3.5 - 5.0 mmol/L CERNER MILLENNIUM Comment: Please note: ??Patients with WBC >100,000 may have falsely elevated Potassium levels. ??For accurate Potassium quantification in these patients send serum separator tube (gold top) for subsequent determinations. ??Contact the Clinical Chemistry Laboratory if there are any questions. Chloride 111(H) 98 - 107 mmol/L CERNER MILLENNIUM Carbon Dioxide 19(L) 22 - 31 mmol/L CERNER MILLENNIUM Anion Gap 10 5 - 15 mmol/L CERNER MILLENNIUM Blood specimen (specimen) 12/02/2012 10:30 PM EDT 12/02/2012 10:33 PM EDT Narrative Resulting Agency Comment Spec In Lab Sharon Gill MD CHEMISTRY ORDERABLE S CERNER MILLENNIUM * (ABNORMAL) CBC (with Diff) (12/02/2012 10:30 PM EDT) White Blood Cell 5.9 4.0 - 10.0 x10(3)/mc L CERNER MILLENNIUM Red Blood Cell 2.42(L) 4.63 - 6.08 x10(6)/mc L CERNER MILLENNIUM Hemoglobin 6.8(L) 13.7 - 17.5 gm/dL CERNER MILLENNIUM Hematocrit 20.8(L) 40.0 - 51.0 % CERNER MILLENNIUM Mean Cell Volume 86.0 79.0 - 92.0 fL CERNER MILLENNIUM Mean Cell Hemoglobin 28.1 25.6 - 32.2 pg CERNER MILLENNIUM Mean Cell Hemoglobin Concentration 32.7 32.0 - 36.5 gm/dL CERNER MILLENNIUM Platelet 118(L) 145 - 370 x10(3)/mc L CERNER MILLENNIUM RDW Standard Deviation 41.8 35.0 - 46.0 fL CERNER MILLENNIUM RDW coefficient of variation 13.5 10.9 - 14.4 % CERNER MILLENNIUM Mean Platelet Volume 9.2 9.0 - 12.0 fL CERNER MILLENNIUM Blood specimen (specimen) 12/02/2012 10:30 PM EDT 12/02/2012 10:33 PM EDT Narrative Resulting Agency Comment Spec In Lab Sharon Gill MD HEMATOLOGY ORDERABL ES THEO ARCOS documented in this encounter Visit Diagnoses Not on filedocumented in this encounter Active and Recently Administered Medications Times are shown in EDT. Scheduled Medication Order 12/05/2012 12/06/2012 12/07/2012 ciprofloxacin (CIPRO) tablet 500 mg 500 mg, Oral, 2 TIMES DAILY, First dose on Tue12/04/12 at 1000, Until Discontinued, Routine, Indication for (Active or Suspected): for GI/Intra-abdominal 0625 (Given - Provider: Juliette Barreto, MELY)1852 (Given - Provider: Socorro Lomeli, MELY) 0623 (Given - Provider: Radha Guzmán RN)1900 (Given - Provider: Himanshu Gallegos RN) 0650 (Given - Provider: Socorro Lomeli RN) esomeprazole (NEXIUM) injection 40 mg (CANCELED) 40 mg, Intravenous, DAILY, First dose (after last modification) on Tue12/04/12 at 0900, Until Discontinued 0955 (Given - Provider: Socorro Lomeli RN) 0900 (Given - Provider: Himanshu Gallegos, MELY) 0900 (Given - Provider: Saniya Palmer, MELY) nadolol (CORGARD) tablet 20 mg (CANCELED) 20 mg, Oral, DAILY, First dose on Tue12/05/12 at 1430, Until Discontinued, Hold for HR < 50, SBP < 100 and notify MD, Routine 1430 (Not Given - Provider: Socorro Lomeli RN - Reason: Order parameters not met) 0900 (Given - Provider: Himanshu Gallegos, MELY) 0900 (Given - Provider: Saniya Palmer, MELY) polyethylene glycol (GoLYTELY;NuLYTELY) Oral solution 2,000 mL (COMPLETED) 2,000 mL, Oral, ONCE, 1 dose, On Tue12/05/12 at 1530, 8-10 ounces PO Q 15 minutes until stooling clear, STAT 1530 (Given - Provider: Socorro Lomeli RN) sodium chloride 0.9 % flush 5 mL (CANCELED) 5 mL, Intravenous, EVERY 12 HOURS, First dose on Tue12/03/12 at 0200, Until Discontinued 0200 (Given - Provider: Juliette Barreto, RN)1400 (Given - Provider: Socorro Lomeli RN) 0231 (Given - Provider: Radha Guzmán, RN)1400 (Given - Provider: Himanshu Gallegos RN) 0251 (Not Given - Provider: Socorro Lomeli RN - Reason: See comment - Comment: IVF) Continuous Medication Order 12/05/2012 12/06/2012 12/07/2012 dextrose 5% and sodium chloride 0.45% with potassium chloride 40 mEq infusion (CANCELED) 100 mL/hr, Intravenous, CONTINUOUS, Starting on Tue12/04/12 at 1915, Until Tue12/07/12 at 1439 1030 (Stopped - Provider: Socorro Lomeli RN)1330 (Restarted - Provider: Socorro Lomeli RN)2017 (New Bag - Provider: Radha Guzmán, MELY) 0559 (New Bag - Provider: Radha Guzmán RN) 0008 (New Bag - Provider: Socorro Lomeli RN)0916 (Restarted - Provider: Saniya Palmer RN)1106 (New Bag - Provider: Barbara Hutchison, MELY) PRN Medication Order 12/05/2012 12/06/2012 12/07/2012 diphenhydrAMINE (BENADRYL) capsule 25 mg (CANCELED) 25 mg, Oral, EVERY 6 HOURS PRN, Starting on Tue12/05/12 at 0301, Until Tue12/07/12 at 1439, Itching, Routine 0307 (Given - Provider: Juliette Barreto, MELY) diphenhydrAMINE (BENADRYL) injection (CANCELED) ONCE PRN, Starting on Tue12/05/12 at 1149, Until Tue12/05/12 at 1230, Itching, Intra-Operative (Intra-Procedure), Routine 1149 (Given - Provider: Davi Kapadia, MELY)1154 (Given - Provider: Davi Kapadia, RN) fentaNYL 50 mcg/mL 5 mL multidose injection (CANCELED) ONCE PRN, Starting on Tue12/05/12 at 1149, Until Tue12/05/12 at 1230, Pain, comfort, Intra-Operative (Intra-Procedure), Routine 1149 (Given - Provider: Davi Kapadia, MELY)1154 (Given - Provider: Davi Kapadia RN)1158 (Given - Provider: Davi Kapadia RN) midazolam (VERSED) injection (CANCELED) ONCE PRN, Starting on Tu12/05/12 at 1154, Until Tue12/05/12 at 1230, Sleep, Intra-Operative (Intra-Procedure), Routine 1149 (Given - Provider: Davi Kapadia RN)1154 (Given - Provider: Davi Kapadia RN)1159 (Given - Provider: Davi Kapadia RN) ondansetron (ZOFRAN) injection 4 mg (CANCELED)(Linked Group 1) 4 mg, Intravenous, EVERY 8 HOURS PRN, Starting on 12/03/12 at 0142, Until Dayan 12/07/12 at 1439, Nausea, May repeat times one in 30 minutes if ineffective 1532 (Given - Provider: Socorro Lomeli RN) 0818 (Given - Provider: Himanshu Gallegos RN)1805 (Given - Provider: Himanshu Gallegos RN) ondansetron (ZOFRAN) tablet 4 mg(Linked Group 1) 4 mg, Oral, EVERY 8 HOURS PRN, Starting on 12/03/12 at 0142, Until Dayan 12/07/12 at 1439, Nausea, Vomiting, If multiple antiemetics are ordered, use ondansetron first. PO Preferred. If patient unable to take PO, may give IV if ordered. May repeat times one in 45 minutes if ineffective. , Routine 1532 (See Alternative - Provider: Socorro Lomeli RN) 0818 (See Alternative - Provider: Himanshu Gallegos RN)1805 (See Alternative - Provider: Himanshu Gallegos RN) promethazine (PHENERGAN) injection 6.25 mg (CANCELED) 6.25 mg, Intravenous, EVERY 6 HOURS PRN, Nausea, Starting on 12/04/12 at 1342, Until Dayan 12/07/12 at 1439, Avoid extravasation 0547 (Given - Provider: Rosario Staley RN)1843 (Given - Provider: Socorro Lomeli RN) 8642 (Given - Provider: Socorro Lomeli RN) traZODone (DESYREL) tablet 50 mg 50 mg, Oral, NIGHTLY PRN, Starting on Tu12/05/12 at 1722, Until Dayan 12/07/12 at 1439, Sleep, Routine 2032 (Given - Provider: Radha Guzmán RN) 2112 (Given - Provider: Socorro Lomeli RN) Linked Groups Order Group 1: ondansetron (ZOFRAN) tablet 4 mgJump to med 4 mg, Oral, EVERY 8 HOURS PRN, Starting on 12/03/12 at 0142, Until Dayan 12/07/12 at 1439, Nausea, Vomiting, If multiple antiemetics are ordered, use ondansetron first. PO Preferred. If patient unable to take PO, may give IV if ordered. May repeat times one in 45 minutes if ineffective. , Routine Or ondansetron (ZOFRAN) injection 4 mg (CANCELED)Jump to med 4 mg, Intravenous, EVERY 8 HOURS PRN, Starting on 12/03/12 at 0142, Until Dayan 12/07/12 at 1439, Nausea, May repeat times one in 30 minutes if ineffective documented in this encounter Care Teams Slicing Machine Feeder Relationship Specialty Start Date End Date Gina Manzo MD [address] [place] [address] PCP - General 03/03/10 02/12/19 documented as of this encounter
--- OUTSIDE RECORDS SUMMARY | 2023-12-21 12:03 | XMS_ITS | Encounter Summary ---
[place] [address] Care Team Providers Care Cnc Grinder Name Role Phone KayodeKatia arroyo SAMANTHA Primary Care Provider [phone] Reason for Visit * Reason Comments Skin Lesion Encounter Details Date Type Department Care Team (Late st Contact Info) Description 11/20/2021 9:00 AM EDT Office Visit Dermatology at [place] [address] [facility] [place] [address] Jin Nunez MD [address], [place] [address] History of basal cell carcinoma; Nevus Social History Tobacco Use Types Packs/Day Years Used Date Smoking Tobacco: Never Smokeless Tobacco: Never Alcohol Use Standard Drinks/Week Comments Not Asked 0 (1 standard drink = 0.6 oz pur e alcohol) sober 2011 Sex and Gender Information Value Date Recorded Sex Assigned at Not on file Gender Identity Not on file Sexual Orientation Not on file documented as of this encounter Progress Notes * Jin Nunez MD - 11/20/2021 9:00 AM EDT Problem: 1. Repeat skin checkup 2. 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 History of growing up in [place] and many years spent in [place] Alonzo follows up after last seeing me in December 2019. About 7 months ago he noted the development of a dark spot on his supra glabellar forehead. He reminds me that he grew up in [place] then spent a number of years living in [place] near [place]. He is status post Mohs surgery as noted above. He has not noted any other lesions of concern. Physical examination reveals a pleasant 66-year-old gentleman who has a pigmented papule 7 mm in diameter with central umbilication on the supra glabellar central forehead. He has no other lesions ofconcern. There is no evidence of recurrent BCCA on the left upper nasolabial fold. Assessment and plan: BCCA, probable, supra glabellar central forehead 1. After obtaining informed patient consent, site was anesthetized and removed with shave C&D x3 2. Triple antibiotic ointment applied and bandage placed. After curettage site measured 8 mm in diameter 3. Wound care instructions and supplies given 4. We will notify patient of biopsy results in 1 week. History of BCCA left upper nasolabial fold 1. No evidence of recurrence 2. Patient reassured CC: Katia Blanco APRN documented in this encounter Plan of Treatment Upcoming Encounters Date Type Department Care Team (Late st Contact Info) Description 2024 8:15 AM EST Office Visit Dermatology at [place] [address] [place] [id number] Jin Nunez MD [address] [facility], [place] [address] documented as of this encounter Visit Diagnoses Diagnosis History of basal cell carcinoma Personal history of other malignant neoplasm of skin Nevus Benign neoplasm of skin, site unspecified documented in this encounter Care Teams Cnc Grinder Relationship Specialty Start Date End Date Katia Blanco APRN [address] [place] [address] PCP - General Family Medicine 02/13/19 11/11/22 documented as of this encounter
--- OUTSIDE RECORDS SUMMARY | 2023-12-21 12:03 | XMS_ITS | Encounter Summary ---
[place] [address] Care Team Providers Care Steel Cutter Name Role Phone George Lou Primary Care Provider [phone] Reason for Visit * Reason Comments Follow-up Encounter Details Date Type Department Care Team (Late st Contact Info) Description 11/12/2022 9:00 AM EDT Office Visit Dermatology at [address] [address] Jin Nunez MD [address], [place] [address] History of basal cell carcinoma; Nevus Social [...] Progress Notes * Jin Nunez MD - 11/12/2022 9:00 AM EDT Problem: 1. Repeat skin checkup 2. 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 History of growing up in [place] and many years spent in [place] 4. 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 I has not noticed any new lesions of concern. 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 Physical examination reveals a pleasant seven 67-year-old gentleman who has a large engorged tick on his mid central back. There is no surrounding erythema migrans, no rash. This was removed today. Otherwise he has benign examination of the head and the neck the chest the back the hands on forearmsthighs and calves. There is no evidence of any cutaneous malignancies today. The BCCA treatment sites remain well-healed at the site as noted above. Assessment plan: Embedded tick 1. Today tick removed 2. Begin doxycycline 100 milligrams take 1 p.o. twice daily for 2 doses then discontinue. Dispense 2 with 0 refills. Benign skin examination 1. Patient assured his benign skin examination 2. No evidence recurrence 3. Return to clinic in another 6 months for repeat check. If doing well at that time we will space out to once yearly visits. Hypertension 1. Patient shows me recent blood pressure results and he is running between 150 and 180 systolic over normal diastolic blood pressures. He is off of his previous blood pressure medication. He is not on anything at the moment. He will bring this up when he sees his PCP in the next week. CC: QUYNH Jameson documented in this encounter Plan of Treatment Upcoming Encounters Date Type Department Care Team (Late st Contact Info) Description 2024 8:15 AM EST Office Visit Dermatology at [place] [address] [facility] [place] [address] Jin Nunez MD [address] [facility], [place] [address] documented as of this encounter Visit Diagnoses Diagnosis History of basal cell carcinoma Personal history of other malignant neoplasm of skin Nevus Benign neoplasm of skin, site unspecified documented in this encounter Care Teams Steel Cutter Relationship Specialty Start Date End Date George Lou PA [address] [place] [address] PCP - General Internal Medicine 11/12/22 documented as of this encounter
--- OUTSIDE RECORDS SUMMARY | 2023-12-21 12:03 | XMS_ITS | Encounter Summary ---
Author Organization [facility] [place] [address] Care Team Providers Care Upholstery Covers Inspector Name Role Phone Katia Blanco APRN Primary Care Provider [phone] Reason for Visit * Reason Comments Skin Check * Consultation (Routine) - Specialty Diagnoses / Procedures Referred By Contreinaldo t Referred To Contact Dermatology Diagnoses Other hypertrophic disorders of the skin Personal history of other malignant neoplasm of skin Skin tags/Hx of BCC Procedures Consult Katia Blanco APRN [address] [place] [address] Jin Nunez MD [address] [place] [address], [facility] [place] [address] Referral ID Status Reason Start Date Expiration Date V isits Requested Visits Authorized [id number] Consult, Test & Treat PCP Updated and/or Approved 05/01/2019 07/31/2019 6 6 Encounter Details Date Type Department Care Team (Late st Contact Info) Description 12/18/2019 11:15 AM EDT Office Visit Dermatology at [address] [phone] Jin Nunez MD [address] [place] [address], [facility] [place] [place], [place] [id number] History of basal cell carcinoma; Nevus; Acrochordon Social History Tobacco Use Types Packs/Day Years [...] Progress Notes * Jin Nunez MD - 12/18/2019 11:15 AM EDT Problem: 1. New patient initial visit skin checkup 2. History of BCCA status post Mohs surgery 2015 [facility] 3. History of growing up in [place] and many years spent in [place] Alonzo is a 64-year-old gentleman who would like to establish himself in my practice. He has a history of skin cancer as noted above. He was last checked by a patrol supervisor 2 years ago. He [place] and does spend a lot of time in the sun. However he does utilize high SPF sunscreen and tries to protect himself. Physical examination reveals a pleasant 64-year-old gentleman who has numerous ephilids, melanocytic nevi, and small seborrheic keratoses present on the torso. He has a well-healed surgical scar on the left medial cheek which follows the nasolabial fold, with some hypertrophic scarring superiorly. The patient is pleased with the results. Examination of the hairbearing scalp the face the neck the chest the back the hands the arms the forearms thighs and calves is otherwise benign. 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 The exception being 1on the left inferior axillary vault which is caught by clothing intermittently. Assessment and plan: Benign skin examination in a 64-year-old gentleman with a history of basal cell carcinoma and excessive sun exposure 1. Patient reassured about today's benign skin examination 2. Continue sun avoidance precautions 3. Recommend see the patient again another 2 years for repeat check. Acrochordons axillary vaults 1. Patient is not really bothered by these except for one under the left axillary vault which is fairly large and gets in the way and is caught by clothing occasionally 2. Could consider anesthetizing site and moving with snip biopsy Cc: Katia Blanco APRN documented in this encounter Plan of Treatment Upcoming Encounters Date Type Department Care Team (Late st Contact Info) Description 2024 8:15 AM EST Office Visit Dermatology at [place] [address] [facility] [place] [address] Jin Nunez MD [address], [place] [address] documented as of this encounter Visit Diagnoses Diagnosis History of basal cell carcinoma Personal history of other malignant neoplasm of skin Nevus Benign neoplasm of skin, site unspecified Acrochordon Unspecified hypertrophic and atrophic condition of skin documented in this encounter Care Teams Upholstery Covers Inspector Relationship Specialty Start Date End Date Kaita Blanco APRN [address] [place] [address] PCP - General Family Medicine 02/13/19 11/11/22 documented as of this encounter
--- OUTSIDE RECORDS SUMMARY | 2023-12-21 12:03 | XMS_ITS | Encounter Summary ---
[place] [address] Care Team Providers Care Slp Teacher Name Role Phone Laurie Manzo MD Primary Care Provider [phone]- [phone] Encounter Details Date Type Department Care Team (Latest Contact Info) Description 12/02/2012 11:46 PM EDT - 12/07/2012 12:38 PM EDT Hospital Encounter [address] [place] [address] Sharon Gill MD [facility] [place] [address] [place] [address] [place] [address] GI bleeding (Primary Dx) Discharge Disposition: Home Social History Tobacco Use Types Packs/Day Years [...] Discharge Instructions * Patient Instructions* Cory Tellez Jluis - 12/07/2012 11:56 AM EDT Patient Instructions [...] follow-up with your primary care physician and pharmacy benefits coordinator. You will need a blood test the [...] Appointments You have follow-up scheduled with Dr. LAURIE AMNZO MD at [address] [place] [address] on , December 14 at 10:45 am. Future Appointments Date Time Provider Department Center 12/28/2012 8:45 AM 2, Ultrasound Rm [facility] None 12/28/2012 11:30 AM Paty Pedraza, COMMUNICATIONS BILLING ANALYST [facility] Your Discharge Medication List Unchanged ELECTRONIC SYSTEM ENGINEER meds that are or will be resumed Medication Status Sig Dispense Refill ??? multivitamin (THERAGRAN) tablet Active Take 1 tablet by mouth daily. Changed ELECTRONIC SYSTEM ENGINEER meds Medication Status Sig Dispense Refill ??? [...] as needed for Sleep. 20 tablet 0 ELECTRONIC SYSTEM ENGINEER meds that are DCed or will be [...] mouth daily. Your Inpatient Medical Team at [facility] Name(s) of your inpatient provider(s): Drs. Andres Thompson, Cory Tellez, Ernesto Cardona, Gustabo Garza For questions regarding issues relating to your hospitalization on the Hospital Medicine Service, please contact your inpatient physician through the [facility] Steam Hoist Operator [phone]. Issues after hours and on weekends will be handled by the Hospitalist staff on-call. Your Primary Care Provider LAURIE MANZO MD [phone] documented in this encounter Medications at Time [...] spent >30 minutes (Day of Discharge Code 98444) involved in the final examination of the [...] discharging to home with prescriptions sent per MD, AVS given to pt and reviewed, questions [...] Cory Tellez - 12/06/2012 8:35 AM EDT [facility] - Attending Daily Progress Note [...] history. 24 Hour Events/Subjective: H+H, vitals stable [place] negative For capsule endoscopy today to eval [...] Gran % 0.40 0.00 - 0.66 % Madonan Gran Abs 0.01 0.00 - 0.05 x10(3)/mcL [...] friable mucosa throughout the colon, may be security systems sales representative of por kee hypertension. 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 I updated her today at bedside and spent >40 minutes with them today. -Disposition - pending medical improvement * Julienne Carlisle RN - 12/05/2012 5:16 PM EDT Initial Assessment/CRC Note Office of Care Management Alonzo Urbina 1955 [address] [facility] [address] Late Entry eDH reviewed. Report received from Dr. Tellez. Patient reviewed in multidisciplinary discharge rounds. S: This place is falling apart in my opinion. O: Introduced self and CRC role to patient and carlos Bowers; patient agrees to CRC services; pt currently lives with Elissa in own home in [place], [place]. CRC contact information left on patient white board. Advance Directives: Scanned in to e-Dh. Hospital course: admitted for GIB. Allergies Allergen Reactions ??? Ambien (Zolpidem) Other (See Comments) Drove his car while sleeping Current Functional Status/Mobility: Independent. Baseline Functional Status/Mobility: Denies any functional deficits. Current Home Services/Use of DME vendor: none. PCP: LAURIE MANZO MD Financial Concerns: insured via Medicare A,B and D via [employer] and [place] [employer]. Transportation: Carlos will transport pt home. Anticipated Services at Discharge: will require re-assessment closer to time of d/c. Social Support Patient has given [facility] permission for carlos Parker ( cell [phone])to be contacted. A: medical plan still evolving. P: This comic writer or colleague from the Office of Care Management will continue to follow patient to assist w/ changing needs and collaborate w/ pt, medical team and family to formulate a plan for discharge; CRC may be reached on beeper [phone] or by leaving a voice mail message at ext. [phone]. See Care Management note in eDH for detailed VNA/DME information upon discharge. Medical Team: Hospitalist Service, pager [phone]. Julienne Carlisle, RN, MSN, [facility] Clinical Activities Director [place] Office of Care Management Pager [phone] Phone: [phone] * Socorro Lomeli RN - 12/05/2012 3:09 [...] oozing or bleeding. - Normal examined duodenum. 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 [place] was poor prep with evidence of active [...] them as documented. Ernesto Cardona MD, MS sausage inspector Section of Gastroenterology and Hepatology * Francia Nichole RN - 12/05/2012 12:40 PM EDT Report called to FREDY Niño. * Cory Tellez - 12/05/2012 8:25 AM EDT [facility] - Attending Daily Progress Note [...] cirrhosis c/h/o variceal sequential banding to eradication [id number], hx of UGIB without obvious clear source [...] fiance -Code status - Full; Elissa ruth ([phone]) is medical decision maker. I updated her today at bedside and spent >40 minutes with them today. -Disposition - pending medical improvement * Estela Barba, PT - 12/04/2012 2:47 PM EDT Physical therapy Referral received, Attempted initial visit, pt occupied with bathroom Will return tomorrow for evaluation ESTELA BARBA, PT * Cory Tellez - 12/04/2012 9:02 AM EDT [facility] - Attending Daily Progress Note [...] cirrhosis c/h/o variceal sequential banding to eradication [id number], hx of UGIB without obvious clear source [...] 01/11 -Code status - Full; Elissa ruth ([phone]) is medical decision maker. I updated her today at his request. -Disposition - pending medical improvement * Juliette Barreto, MELY - 12/04/2012 1:18 AM EDT Pt had a moderate loose BM at 0100. Black with streaks of adrianna red blood. * Cleopatra Camara, MELY - 12/03/2012 5:54 PM EDT Pt transferred to [address] from ICU accompanied by transportation staff. A&Ox4. [...] Cory Tellez - 12/03/2012 8:47 AM EDT [facility] - Attending Daily Progress Note [...] TYPE MANUAL Component Value Range Specimen OD [id number] ABORh Type A Pos SELECTED CELL SCREEN [...] 01/11 -Code status - Full; Elissa ruth ([phone]) is medical decision maker. I updated her [...] the patient. Consent signed. * Ana Camargo - 12/03/2012 11:55 AM EDT Gastroenterology & Hepatology Pre-Procedure History and Physical Procedure: EGD Indication: melena History of Present Illness: Alonzo Urbina is a 57 y.o. , PM s/o ETOH abuse (sober 12/21), HCV (PEG [...] the patient. Consent has been signed. * MartellRosaline sappjay - 12/02/2012 11:32 PM EDT Inpatient Hospital Medicine - Admission Note Problem List: There are no hospital problems to display for this patient. Active Non-Hospital Problems Diagnosis ??? Cirrhosis ??? Alcohol abuse, episodic drinking behavior ID: 57 y.o. Male presents to [facility] with GI bleed. History of Present Illness: HPI Patient is a 57 Y M with history of Hepatitis C, cirrhosis Portal HTN who was transferred from [facility] for evaluation of GI bleed. Patient [...] + Extremities: No edema, peripheral pulses + CUSTOMER SERVICE REPRESENTATIVE: Awake, alert, oriented. No focal deficits. Laboratory [...] 12/08/2012 3:03 PM EDTAssociated Order(s): SCAN DOC: POLISHER IMPLANT * Provider, Scanning - 12/08/2012 2:46 PM [...] a 57 y.o. male who presents to [facility] with GI bleeding History of Present Illness [...] any further clinical details. Sharon Gill MD 12/02/12 2217 Sharon Gill MD 12/02/12 2224 documented in this encounter Miscellaneous Notes * [...] cirrhosis Portal HTN who was transferred from [facility] for evaluation of GI bleed. Patient [...] Labs: Recent Labs Basename 12/07/12 0902 12/06/12 0612/05/12 1851 12/05/12 0539 WBC 3.1* 2.2* -- [...] friable mucosa throughout the colon, may be security systems sales representative of por kee hypertension. Recommendation: - [...] cirrhosis c/h/o variceal sequential banding to eradication [id number], hx of UGIB without obvious clear source [...] follow-up with your primary care physician and pharmacy benefits coordinator. You will need a blood test the [...] Appointments You have follow-up scheduled with Dr. LAURIE MANZO MD at [address] [place] [address] on , December 14 at 10:45 am. Future Appointments Date Time Provider Department Center 12/28/2012 8:45 AM 2, Ultrasound Rm [facility] None 12/28/2012 11:30 AM Paty Pedraza APRN [facility] Your Discharge Medication List Unchanged ELECTRONIC SYSTEM ENGINEER meds that are or will be resumed Medication Status Sig Dispense Refill ??? multivitamin (THERAGRAN) tablet Active Take 1 tablet by mouth daily. Changed ELECTRONIC SYSTEM ENGINEER meds Medication Status Sig Dispense Refill ??? [...] as needed for Sleep. 20 tablet 0 ELECTRONIC SYSTEM ENGINEER meds that are DCed or will be [...] mouth daily. Your Inpatient Medical Team at [facility] Name(s) of your inpatient provider(s): Drs. Andres Thompson, Cory Tellez, Ernesto Cardona, Gustabo aGrza For questions regarding issues relating to your hospitalization on the Hospital Medicine Service, please contact your inpatient physician through the [facility] Steam Hoist Operator [phone]. Issues after hours and on weekends will be handled by the Hospitalist staff on-call. Your Primary Care Provider LAURIE MANZO MD [phone] General Instructions None Future Appointments and Orders Future Appointments: Provider: Department: Dept Phone: Center: 12/28/2012 8:45 AM Ultrasound Rm 2 [facility] RAD ULTRASOUND [phone] None 12/28/2012 11:30 AM Paty Pedraza APRN Gastroenterology [phone] [facility] Discharge References/Attachments: Discharge References/Attachments None Inpatient Provider Contact Information: For questions regarding this document or issues relating to this hospitalization on the Medical Service, please contact your inpatient physician through the [facility] Steam Hoist Operator . Issues afterhours and on weekends will [...] study. Patient has taken the 2000cc of mj ordered this afternoon. Medicated for nausea per JUN. * Op Note - Ernesto Cardona MD - 12/05/2012 5:03 PM EDT [facility] Operative Note Patient Name: Alonzo Urbina : [id number] MR#: [id number] Case Date: 12/05/2012 Surgeon: Surgeon(s) and Role: * Ernesto Cardona MD - Primary Preoperative diagnosis: UGIB with EGD portal gastropathy with clean base ulcer can't explain GIB (for 12/05) Postoperative diagnosis: * No post-op diagnosis entered * Procedure(s): COLONOSCOPY, DIAGNOSTIC Full procedure note is documented under the Procedure section of eDH. * Initial Assessments - Estela Braba PT - 12/05/2012 10:40 AM EDT Physical [...] 0 minutes ESTELA BARBA, PT 12/05/2012 Pager: [phone] Physical Therapy Rehabilitation Department * Plan of [...] MD - 12/02/2012 11:59 PM EDT . [facility] Section of Gastroenterology and Hepatology Initial Inpatient Consultation Patient Name: Alonzo Urbina : 1955 Referring provider: Dr. Granados, medicine Date of Consult: 12/02/12 Reason for Consult: UGIB History of Present Illness: Alonzo Urbina is a 57 y.o. , [facility] s/o ETOH abuse (sober 12/21), HCV (PEG [...] day denies daily use. Had colonoscopy at [facility] reportedly WNL. Last EGD09/21 Dr. Browne, mild [...] as primary findings. Will place back on B-Misbah, start diet, if further evidence of bleed on b-misbah will need repeat colo and possible capsule Gustabo Garza * Miscellaneous - Provider, Scanning - 12/02/2012 11:55 PM EDT * Miscellaneous - Provider, Scanning - 12/02/2012 11:55 PM EDT * Miscellaneous - Provider, Scanning - 12/02/2012 11:37 PM EDT * ED Triage - Michael Browne RN - 12/02/2012 10:20 PM EDT Pt arrived via [facility] from [facility] For evaluation of GI bleeding pt is alert oriented resp regular unlabored pt is dizzy when standing skin is cool and pale documented in this encounter Plan of Treatment Upcoming Encounters Date Type Department Care Team (Late st Contact Info) Description 2024 8:15 AM EST Office Visit Dermatology at [address] [address] Jin Nunez MD [address], [place] [address] documented as of this encounter Procedures Procedure Name Priority Date/Time Associated Diagnosis Comments POLISHER IMPLANT SCAN 12/08/2012 3:03 PM EDT LAB SCAN [...] HEMATOCRIT, BLOOD Timed 12/05/2012 6:51 PM EDT COLONOSCOPY, DIAGNOSTIC (WRVU 3.26) 12/05/2012 11:45 AM EDT UGIB with EGD portal gastropathy with clean base ulcer can't explain GIB (for 12/05) COLONOSCOPY Routine 12/05/2012 11:38 AM EDT DIFFERENTIAL, [...] HEMATOCRIT, BLOOD Timed 12/03/2012 4:50 PM EDT EGD, UPPER GI ENDOSCOPY (WRVU 2.09) 12/03/2012 12:21 PM EDT GI Bleed PREPARE RBC STAT 12/03/2012 9:40 AM EDT [...] in this encounter Results * SCAN DOC: POLISHER IMPLANT (12/08/2012 3:03 PM EDT) Anatomical Region Laterality [...] EDT Cory Tellez MD HEMATOLOGY ORDERABLE S CERNER MILLENNIUM * (ABNORMAL) CBC (with Diff) (12/07/2012 9:02 [...] Platelet 111(L) 145 - 370 x10(3)/mc L CERSID[facility]ARTH POOLENNIUM RDW Standard Deviation 45.2 35.0 - 46.0 fL CERNER MILLENNIUM RDW coefficient of variation 15.1(H) 10.9 - 14.4 % CERNER MILLENNIUM Mean Platelet Volume 8.4(L) 9.0 - 12.0 fL [facility] POOLENNIUM Blood specimen (specimen) 12/07/2012 9:02 AM EDT 12/07/2012 9:07 AM EDT Narrative Resulting Agency Comment Spec In Lab Cory Tellez MD HEMATOLOGY ORDERABLE S [facility]ONATH[facility] * VIDEO CAPSULE ENDOSCOPY (12/06/2012 8:00 AM EDT) VIDEO CAPSULE ENDOSCOPY [facility] Endoscopy ___ Patient Name: Alonzo Urbina ? Procedure Date: 12/06/2012 8:00 AM ? N: [id number] ? Date of : 1955 ? Age: 57 ? Order #: [id number] ? ___ Procedure: ? Video capsule endoscopy Indications: ? Obscure gastrointestinal bleeding Providers: ? Stefanie Patterson MD Referring : ?Ernesto Cardona MD Medicines: ? None Complications: [...] Param Granados MD HEMATOLOGY ORDERAB LES CERNER CORINEENNIUM * (ABNORMAL) Hepatic Function Panel (12/06/2012 [...] In Lab Cory Tellez MD CHEMISTRY ORDERABLES CERNER MILLENNIUM * (ABNORMAL) Basic Metabolic Panel (non-fasting) (12/06/2012 6:12 AM EDT) Glucose 126 60 - 199 mg/dL CERNER MILLENNIUM Comment:Diabetes: >=200 mg/d L plus symptoms Blood Urea Nitrogen 8(L) 10 - 20 mg/dL CERNER MILLENNIUM Creatinine 0.84 0.80 - 1.50 mg/dL CERNER MILLENNIUM Comment: Please note that the pediatric reference intervals supplied above were not validated at [facility]. Results from pediatric patients should be interpreted [...] Lab Param Granados MD CHEMISTRY ORDERABL ES Performing Organization Address [facility] Co de Phone Number CERNER MILLENNIUM * (ABNORMAL) CBC (with Diff) (12/06/2012 6:12 [...] Lab Param Granados MD HEMATOLOGY ORDERAB LES CERNER MILLENNIUM * (ABNORMAL) Hemoglobin and Hematocrit, blood (12/05/2012 6:51 PM EDT) Hemoglobin 8.9(L) 13.7 - 17.5 gm/dL CERNER MILLENNIUM Hematocrit 27.3(L) 40.0 - 51.0 % THEO FONTANAIUM Blood specimen (specimen) 12/05/2012 6:51 PM EDT 12/05/2012 6:55 PM EDT Narrative Resulting Agency Comment Spec In Lab Cory Tellez MD HEMATOLOGY ORDERABLE S THEO MILLENNIUM * COLONOSCOPY (12/05/2012 11:38 AM EDT) COLONOSCOPY [facility] Endoscopy ___ Patient Name: Alonzo Urbina ? Procedure Date: 12/05/2012 11:38 AM ? N: [id number] ? Date of : 1955 ? Age: 57 ? Order #: [id number] ? ___ Procedure: ? Colonoscopy Indications: ? Gastrointestinal occult blood loss Providers: ? Ernesto Cardona MD, Ariana Austin, ? , Davi Kapadia RN, Janie Blood ? Marv, Trolley Wire Installer Referring : ? Medicines: ? Midazolam 4 [...] ? throughout the colon, may be ? security systems sales representative of portal hypertension. Recommendation: ?- Although [...] MILLENNIUM * (ABNORMAL) Basic Metabolic Panel (non-fasting) (12/05/2012 5:39 AM EDT) [facility] Signature Glucose 135 60 - 199 mg/dL CERNER MILLENNIUM Comment:Diabetes: >=200 mg/d L plus symptoms Blood Urea Nitrogen 14 10 - 20 mg/dL CERNER MILLENNIUM Creatinine 0.92 0.80 - 1.50 mg/dL CERNER MILLENNIUM Comment: Please note that the pediatric reference intervals supplied above were not validated at [facility]. Results from pediatric patients should be interpreted [...] Lab Param Granados MD CHEMISTRY ORDERABL ES Performing Organization Address [facility]/ZIP Co de Phone Number CERNER MILLENNIUM * (ABNORMAL) CBC (with Diff) (12/05/2012 5:39 [...] Platelet Volume 9.3 9.0 - 12.0 fL CERNER MILLENNIUM Blood specimen (specimen) 12/05/2012 5:39 AM EDT 12/05/2012 6:00 AM EDT Narrative Resulting Agency Comment Spec In Lab Param Granados MD HEMATOLOGY ORDERAB LES CERSIDDHARTH POOLENNIUM * (ABNORMAL) Hemoglobin and Hematocrit, blood (12/04/2012 9:55 PM EDT) Hemoglobin 7.6(L) 13.7 - 17.5 gm/dL CERNER MILLENNIUM Hematocrit 22.9(L) 40.0 - 51.0 % CERNER MILLENNIUM Blood specimen (specimen) 12/04/2012 9:55 PM EDT 12/04/2012 10:07 PM EDT Narrative Resulting Agency Comment Spec In Lab Cory Tellez MD HEMATOLOGY ORDERABLE S Performing Organization Address City/[facility]/ZIP Co de Phone Number [facility] POOLENNIUM * APTT (12/04/2012 3:13 PM EDT) Partial Thromboplastin Time 31 25 - 35 sec [facility] MILLENNIUM Comment: Recommended therapeutic PTT range for full dose unfractionated heparin is 80-114 seconds. Blood specimen (specimen) 12/04/2012 3:13 PM EDT 12/04/2012 3:26 PM EDT Narrative Resulting Agency Comment Spec In Lab Cory Tellez MD HEMATOLOGY ORDERABLE S Performing Organization Address [facility] Co de Phone Number THEO POOLENNIUM * (ABNORMAL) Hemoglobin and Hematocrit, blood (12/04/2012 3:13 PM EDT) Hemoglobin 8.4(L) 13.7 - 17.5 gm/dL [facility] MILLENNIUM Hematocrit 25.8(L) 40.0 - 51.0 % [facility] MILLENNIUM Blood specimen (specimen) 12/04/2012 3:13 PM EDT 12/04/2012 3:25 PM EDT Narrative Resulting Agency Comment Spec In Lab Cory Tellez MD HEMATOLOGY ORDERABLE S Performing Organization Address [facility] Co de Phone Number [facility] POOLENNIUM * (ABNORMAL) Basic Metabolic Panel (non-fasting) (12/04/2012 3:13 PM EDT) Glucose 118 60 - 199 mg/dL [facility] MILLENNIUM Comment:Diabetes: >=200 mg/d L plus symptoms Blood Urea Nitrogen 20 10 - 20 mg/dL [facility] MILLENNIUM Creatinine 0.94 0.80 - 1.50 mg/dL [facility] MILLENNIUM Comment: Please note that the pediatric reference intervals supplied above were not validated at [facility]. Results from pediatric patients should be interpreted in conjunction to the patient's age, height and muscle mass. Sodium 142 135 - 145 mmol/L [facility] Potassium 3.0(Criti agustin) 3.5 - 5.0 mmol/L [...] In Lab Cory Tellez MD CHEMISTRY ORDERABLES CERNER MILLENNIUM * (ABNORMAL) Hepatic Function Panel (12/04/2012 3:13 PM EDT) Protein, Total 5.9(L) 6.4 - 8.3 gm/dL CERNER MILLENNIUM Albumin 3.3 3.2 - 5.2 gm/dL CERNER MILLENNIUM Aspartate Aminotransferase 364(H) 0 - 39 unit/L CERNER MILLENNIUM Comment:result rechecked-RACHANA Alanine Aminotransferase 108(H) 0 - 55 unit/L [...] Tellez MD CHEMISTRY ORDERABLES Performing Organization Address [facility] Co de Phone Number THEO FONTANAIUM * (ABNORMAL) Prothrombin Time (12/04/2012 3:13 PM EDT) Prothrombin Time 16.2(H) 12.0 - 15.0 sec CERNER MILLENNIUM Comment: [facility] Transfusion Committee Guidelines: INR less than 2.0, [...] MD HEMATOLOGY ORDERABLE S Performing Organization Address City/[facility] Co de Phone Number THEO ARCOS * (ABNORMAL) Hemoglobin and Hematocrit, blood (12/04/2012 9:13 AM EDT) Hemoglobin 7.7(L) 13.7 - 17.5 gm/dL CERNER MILLENNIUM Hematocrit 23.9(L) 40.0 - 51.0 % CERNER MILLENNIUM Blood specimen (specimen) 12/04/2012 9:13 AM EDT 12/04/2012 9:19 AM EDT Narrative Resulting Agency Comment Spec In Lab Cory Tellez MD HEMATOLOGY ORDERABLE S Performing Organization Address City/[facility]/ZIP Co de Phone Number [facility] * (ABNORMAL) Hemoglobin and Hematocrit, blood (12/04/2012 6:32 AM EDT) Hemoglobin 8.0(L) 13.7 - 17.5 gm/dL CERNER MILLENNIUM Hematocrit 23.8(L) 40.0 - 51.0 % CERNER MILLENNIUM Blood specimen (specimen) 12/04/2012 6:32 AM EDT 12/04/2012 6:58 AM EDT Narrative Resulting Agency Comment Spec In Lab Cory Tellez MD HEMATOLOGY ORDERABLE S Performing Organization Address [facility] Co de Phone Number [facility] CORINEENNIUM * Ammonia (12/04/2012 6:32 AM EDT) Ammonia 30 16 - 60 mcmol/L CERNER MILLENNIUM Blood specimen (specimen) 12/04/2012 6:32 AM EDT 12/04/2012 6:57 AM EDT Narrative Resulting Agency Comment Spec In Lab Cory Tellez MD CHEMISTRY ORDERABLES Performing Organization Address [facility] de Phone Number [facility] CORINEENNIUM * (ABNORMAL) Hemoglobin and Hematocrit, blood (12/03/2012 11:08 PM EDT) Hemoglobin 8.2(L) 13.7 - 17.5 gm/dL CERNER MILLENNIUM Hematocrit 24.5(L) 40.0 - 51.0 % CERNER MILLENNIUM Blood specimen (specimen) 12/03/2012 11:08 PM EDT 12/03/2012 11:13 PM EDT Narrative Resulting Agency Comment Spec In Lab Cory Tellez MD HEMATOLOGY ORDERABLE S Performing Organization Address City/[facility] Co de Phone Number [facility] CORINEENNIUM * (ABNORMAL) Hemoglobin and Hematocrit, blood (12/03/2012 4:50 PM EDT) Pathologist [facility] Hemoglobin 8.2(L) 13.7 - 17.5 gm/dL [facility] Hematocrit 25.1(L) 40.0 - 51.0 % [facility] Blood specimen (specimen) 12/03/2012 4:50 PM EDT 12/03/2012 4:50 PM EDT Narrative Resulting Agency Comment Spec In Lab Cory Tellez MD HEMATOLOGY ORDERABLE S Performing Organization Address [facility] Co de Phone Number [facility] * Transfuse RBC (12/03/2012 12:06 PM EDT) Cory Tellez MD NURSING TREATMENT OR DERABLES - BLOOD ADMIN * Prepare RBC (12/03/2012 9:40 AM EDT) Pathologist [facility] Dispensed? Yes [facility] Blood specimen (specimen) 12/03/2012 9:40 AM EDT 12/03/2012 9:36 AM EDT Cory Tellez MD BLOOD BANK PRODUCT O RDERABLES Performing Organization Address [facility] de Phone Number [facility] * POCT Glucose (12/03/2012 6:35 AM EDT) Pathologist [facility] Glucose, POC 129 60 - 199 mg/dL [facility] Comment: Supplemental ranges: <110 mg/dL before meals <200 mg/dL all other times of the day Blood specimen (specimen) 12/03/2012 6:35 AM EDT 12/03/2012 6:35 AM EDT Param Granados MD POINT OF CARE TEST ORDERABLES Performing Organization Address [facility] de Phone Number [facility] * Differential, Automated (12/03/2012 6:33 AM EDT) [facility] Neutrophil % 56.9 34.0 - 71.0 % [facility] Neutrophil Absolute 2.67 1.50 - 6.30 x10(3)/mcL [...] EDT Param Granados MD HEMATOLOGY ORDERAB LES [facility] * (ABNORMAL) Basic Metabolic Panel (non-fasting) (12/03/2012 6:33 AM EDT) [facility] Glucose 128 60 - 199 mg/dL CERNER MILLENNIUM Comment:Diabetes: >=200 mg/d L plus symptoms Blood Urea Nitrogen 42(H) 10 - 20 mg/dL CERNER MILLENNIUM Creatinine 0.86 0.80 - 1.50 mg/dL CERNER MILLENNIUM Comment: Please note that the pediatric reference intervals supplied above were not validated at [facility]. Results from pediatric patients should be interpreted [...] Lab Param Granados MD CHEMISTRY ORDERABL ES [facility] MILLENNIUM * (ABNORMAL) CBC (with Diff) (12/03/2012 6:33 AM EDT) White Blood Cell 4.7 4.0 - 10.0 x10(3)/mc L CERNER MILLENNIUM Red Blood Cell 2.50(L) 4.63 - 6.08 x10(6)/mc L [facility] MILLENNIUM Hemoglobin 6.9(L) 13.7 - 17.5 gm/dL CERNER MILLENNIUM Hematocrit 21.4(L) 40.0 - 51.0 % [facility] MILLENNIUM Mean Cell Volume 85.6 79.0 - 92.0 fL [facility] MILLENNIUM Mean Cell Hemoglobin 27.6 25.6 - 32.2 pg [facility] MILLENNIUM Mean Cell Hemoglobin Concentration 32.2 32.0 - 36.5 gm/dL [facility] CORINEENNIUM Platelet 110(L) 145 - 370 x10(3)/mc L [facility] MILLENNIUM RDW Standard Deviation 42.2 35.0 - 46.0 fL [facility] MILLENNIUM RDW coefficient of variation 13.6 10.9 - 14.4 % [facility] CORINEENNIUM Mean Platelet Volume 9.4 9.0 - 12.0 fL [facility] CORINEENNIUM Blood specimen (specimen) 12/03/2012 6:33 AM EDT 12/03/2012 6:36 AM EDT Narrative Resulting Agency Comment Spec In Lab Param Granados MD HEMATOLOGY ORDERAB LES Performing Organization Address [facility] Co de Phone Number [facility] * Transfuse RBC (12/03/2012 5:33 AM EDT) Sharon Gill MD NURSING TREATMENT O RDERABLES - BLOOD ADMIN * Transfuse RBC (12/03/2012 5:33 AM EDT) Sharon Gill MD NURSING TREATMENT O RDERABLES - BLOOD ADMIN * POCT Glucose (12/03/2012 1:26 AM EDT) Glucose, POC 105 60 - 199 mg/dL [facility] Comment: Supplemental ranges: <110 mg/dL before meals <200 mg/dL all other times of the day Blood specimen (specimen) 12/03/2012 1:26 AM EDT 12/03/2012 1:26 AM EDT Param Granados MD POINT OF CARE TEST ORDERABLES Performing Organization Address [facility] Co de Phone Number [facility] * Prepare RBC (12/02/2012 11:00 PM EDT) Dispensed? Yes [facility] Blood specimen (specimen) 12/02/2012 11:00 PM EDT 12/02/2012 10:59 PM EDT Sharon Gill MD BLOOD BANK PRODUCT ORDERABLES Performing Organization Address [facility] de Phone Number THEO ARCOS * Selected Cell Screen (12/02/2012 10:30 PM EDT) Ab Screen Interp Previously identified Anti-c, -E. No additional alloantibodies detected.* *Due to the presence of alloantibody(ies) additional time is required for preparation of Red Cell Products. See initial antibody identification report for additional information. THEO FONTANAIUM Blood specimen (specimen) 12/02/2012 10:30 PM EDT 12/02/2012 10:35 PM EDT Narrative Resulting Agency Comment Spec In Lab Sharon Gill MD BLOOD BANK LAB ORDE BENJIMAGALIS Performing Organization Address [facility] de Phone Number THEO FONTANAIUM * ABORh Type Manual (12/02/2012 10:30 PM EDT) Expires at [id number] on: [id number] THEO FONTANAIUM ABORH Type A Pos THEO FONTANAIUM Blood specimen (specimen) 12/02/2012 10:30 PM EDT 12/02/2012 10:35 PM EDT Narrative Resulting Agency Comment Spec In Lab Sharon Gill MD BLOOD BANK LAB ORDE JARETH Performing Organization Address [facility] de Phone Number THEO FONTANAIUM * Differential, Automated (12/02/2012 10:30 PM EDT) Neutrophil % 61.7 34.0 - 71.0 % [facility] MILLENNIUM Neutrophil Absolute 3.64 1.50 - 6.30 x10(3)/mcL CERN[facility] MILLENNIUM Lymph % 25.0 19.0 - 53.0 % CERNER MILLENNIUM Lymphocytes Abs 1.5 1.0 - 3.6 x10(3)/mcL CERNER MILLENNIUM Monocyte % 11.5 4.0 - 13.0 % CERNER MILLENNIUM Monocyte Abs 0.7 0.2 - 1.0 x10(3)/[facility] CERNER MILLENNIUM Eos % 1.0 0.0 - 7.0 % CERNER MILLENNIUM Eosinophils Abs 0.1 0.0 - 0.5 x10(3)/mcL CERNER MILLENNIUM Basophil % 0.5 0.0 - 2.0 % CERNER MILLENNIUM Baso Absolute 0.0 0.0 - 0.2 x10(3)/[facility] CERNER MILLENNIUM Immature Gran % 0.30 0.00 - 0.66 % CERNER CORINEENNIUM Comment: Immature granulocytes(IG's)percentage and absolute count will include metamyelocytes, myelocytes, and promyelocytes. Blood smears from CBCs yielding IG's will be scanned manually for concordance. If this scan disagrees with the automated IG or if promyelocytes are noted, a manual differential will be performed. Immature Gran Absolute 0.02 0.00 - 0.05 x10(3)/[facility] THEO FONTANAIUM Blood specimen (specimen) 12/02/2012 10:30 PM EDT 12/02/2012 10:33 PM EDT Sharon Gill MD HEMATOLOGY ORDERABL ES Performing Organization Address [facility] Co de Phone Number THEO FONTANAIUM * Gold Tube HOLD (12/02/2012 10:30 PM EDT) Pathologist [facility] Gold Hold Sample in lab. THEO ARCOS Blood specimen (specimen) 12/02/2012 10:30 PM EDT 12/02/2012 10:33 PM EDT Sharon Gill MD CHEMISTRY ORDERABLE S Performing Organization Address City/[facility]/ZIP Co de Phone Number THEO FONTANAIUM * (ABNORMAL) APTT (12/02/2012 10:30 PM EDT) Pathologist [facility] Partial Thromboplastin Time 36(H) 25 - 35 sec THEO POOLENNIUM Comment: Recommended therapeutic PTT range for full dose unfractionated heparin is 80-114 seconds. Blood specimen (specimen) 12/02/2012 10:30 PM EDT 12/02/2012 10:33 PM EDT Narrative Resulting Agency Comment Spec In Lab Sharon Gill MD HEMATOLOGY ORDERABL ES Performing Organization Address [facility] Phone Number THEO FONTANAIUM * (ABNORMAL) Prothrombin Time (12/02/2012 10:30 PM EDT) Prothrombin Time 16.8(H) 12.0 - 15.0 sec CERNER MILLENNIUM Comment: [facility] Transfusion Committee Guidelines: INR less than 2.0, [...] MD HEMATOLOGY ORDERABL ES Performing Organization Address [facility] Phone Number CERSIDDHARTH POOLENNIUM * (ABNORMAL) Hepatic Function Panel (12/02/2012 10:30 [...] Lab Sharon Gill MD CHEMISTRY ORDERABLE S Performing Organization Address [facility]/ZIP Co de Phone Number THEO [employer] * Glucose, random (12/02/2012 10:30 PM EDT) Glucose 121 60 - 199 mg/dL [facility] Comment:Diabetes: >=200 mg/d L plus symptoms Blood specimen (specimen) 12/02/2012 10:30 PM EDT 12/02/2012 10:33 PM EDT Narrative Resulting Agency Comment Spec In Lab Sharon Gill MD CHEMISTRY ORDERABLE S Performing Organization Address [facility] de Phone Number THEO ARCOS * (ABNORMAL) Creatinine (12/02/2012 10:30 PM EDT) Creatinine 0.76(L) 0.80 - 1.50 mg/dL [facility] Comment: Please note that the pediatric reference intervals supplied above were not validated at [facility]. Results from pediatric patients should be interpreted in conjunction to the patient's age, height and muscle mass. Est Glomerular Filtration Rate >60 >=60 [facility] [employer] Comment: This estimated GFR (eGFR) value was [...] Lab Sharon Gill MD CHEMISTRY ORDERABLE S Performing Organization Address [facility] Co de Phone Number [facility] AR[facility] * (ABNORMAL) BUN (12/02/2012 10:30 PM EDT) Blood Urea Nitrogen 41(H) 10 - 20 mg/dL CERNER MILLENNIUM Blood specimen (specimen) 12/02/2012 10:30 PM EDT 12/02/2012 10:33 PM EDT Narrative Resulting Agency Comment Spec In Lab Sharon Gill MD CHEMISTRY ORDERABLE S [facility] MILLENNIUM * (ABNORMAL) Electrolytes panel (12/02/2012 10:30 PM EDT) Pathologist [facility] Sodium 140 135 - 145 mmol/L CERNER [...] CBC (with Diff) (12/02/2012 10:30 PM EDT) Pathologist [facility] White Blood Cell 5.9 4.0 - 10.0 [...] Hemoglobin Concentration 32.7 32.0 - 36.5 gm/dL THEO POOLENNIUM Platelet 118(L) 145 - 370 x10(3)/mc L THEO POOLENNIUM RDW Standard Deviation 41.8 35.0 - 46.0 fL [facility] POOLENNIUM RDW coefficient of variation 13.5 10.9 - 14.4 % THEO POOLENNIUM Mean Platelet Volume 9.2 9.0 - 12.0 fL [facility] FONTANAIUM Blood specimen (specimen) 12/02/2012 10:30 PM EDT 12/02/2012 10:33 PM EDT Narrative Resulting Agency Comment Spec In Lab Sharon Gill MD HEMATOLOGY ORDERABL ES THEO ARCOS documented in this encounter Visit Diagnoses Diagnosis GI bleed- Primary Hemorrhage of gastrointestinal tract, unspecified GI bleeding Hemorrhage of gastrointestinal tract, unspecified documented in this encounter Administered Medications Inactive Administered Medications - up to 3 most recent administrations Medication Order MAR Action Action Date Dose Rate Site cefTRIaxone (ROCEPHIN) 1g in dextrose 5% 50mL 1 g, Intravenous, DAILY, 7 doses, First dose on 12/03/12 at 0945, Last dose on 12/09/12 at 0900, Administer over 30 Minutes, Indication for (Active or Suspected): for GI/Intra-abdominal Given 12/03/2012 9:45 AM EDT 1 g 100 mL/hr ciprofloxacin (CIPRO) tablet 500 mg 500 mg, Oral, 2 TIMES DAILY, First dose on Tue12/04/12 at 1000, Until Discontinued, Routine, Indication for (Active or Suspected): for GI/Intra-abdominal Given 12/07/2012 6:50 AM EDT 500 mg Given 12/06/2012 7:00 PM EDT 500 mg Given 12/06/2012 6:23 AM EDT 500 mg dextrose 5% and sodium chloride 0.45% with potassium chloride 40 mEq infusion 100 mL/hr, Intravenous, CONTINUOUS, Starting on Tue12/04/12 at 1915, Until Dayan 12/07/12 at 1439 New Bag 12/07/2012 11:06 AM EDT 100 mL/hr 100 mL/hr Restarted 12/07/2012 9:16 AM EDT 100 mL/hr 100 mL/hr New Bag 12/07/2012 12:08 AM EDT 100 mL/hr 100 mL/hr diphenhydrAMINE (BENADRYL) capsule 25 mg 25 mg, Oral, EVERY 6 HOURS PRN, Starting on Tue12/05/12 at 0301, Until Dayan 12/07/12 at 1439, Itching, Routine Given 12/05/2012 3:07 AM EDT 25 mg esomeprazole (NEXIUM) injection 40 mg 40 mg, Intravenous, 2 TIMES DAILY, First dose on Tue12/03/12 at 0000, Until Discontinued Given 12/03/2012 10:00 AM EDT 40 mg Given 12/03/2012 12:00 AM EDT 40 mg esomeprazole (NEXIUM) injection 40 mg 40 mg, Intravenous, DAILY, First dose (after last modification) on Tue12/04/12 at 0900, Until Discontinued Given 12/07/2012 9:00 AM EDT 40 mg Given 12/06/2012 9:00 AM EDT 40 mg Given 12/05/2012 9:55 AM EDT 40 mg nadolol (CORGARD) tablet 20 mg 20 mg, Oral, DAILY, First dose on Tue12/05/12 at 1430, Until Discontinued, Hold for HR < 50, SBP < 100 and notify MD, Routine Given 12/07/2012 9:00 AM EDT 20 mg Given 12/06/2012 9:00 AM EDT 20 mg Octreotide Acetate (SANDOSTATIN) 500 mcg in sodium chloride 0.9% 100 mL infusion 25 mcg/hr (rounded to 5 mL/hr), Intravenous, CONTINUOUS, Starting on Tue12/03/12 at 0000, Until Tue12/03/12 at 1324 Rate/Dose Verify 12/03/2012 8:00 AM EDT 25 mcg/hr 5 mL/hr New Bag 12/03/2012 12:00 AM EDT 25 mcg/hr 5 mL/hr Octreotide Acetate (SANDOSTATIN) injection 50 mcg 50 mcg, Subcutaneous, 3 TIMES DAILY, First dose on Tue12/03/12 at 0000, Until Discontinued, Routine Given 12/03/2012 12:00 AM EDT 50 mcg ondansetron (ZOFRAN) 4 mg/2 mL injection 1 dose, Starting on 12/02/12 at 2319, Until 12/02/12 at 2330, MICHAEL BROWNE: cabinet override ondansetron (ZOFRAN) injection 4 mg 4 mg, Intravenous, EVERY 8 HOURS PRN, Starting on 12/03/12 at 0142, Until Dayan 12/07/12 at 1439, Nausea, May repeat times one in 30 minutes if ineffective Given 12/06/2012 6:05 PM EDT 4 mg Given 12/06/2012 8:18 AM EDT 4 mg Given 12/05/2012 3:32 PM EDT 4 mg ondansetron (ZOFRAN) injection 8 mg 8 mg, Intravenous, ONCE, 1 dose, On 12/02/12 at 2345, STAT Given by Other 12/02/2012 11:45 PM EDT 8 mg Given 12/02/2012 11:30 PM EDT 8 mg polyethylene glycol (GoLYTELY;NuLYTELY) Oral solution 2,000 mL 2,000 mL, Oral, ONCE, 1 dose, On Tue12/05/12 at 1530, 8-10 ounces PO Q 15 minutes until stooling clear, STAT Given 12/05/2012 3:30 PM EDT 2,000 mLs polyethylene glycol (GoLYTELY;NuLYTELY) Oral solution 4,000 mL 4,000 mL, Oral, ONCE, 1 dose, On Tue12/04/12 at 1200, 8-10 ounces PO Q 15 minutes until stooling clear, Routine Given 12/04/2012 12:26 PM EDT 4,000 mLs potassium chloride (K-DUR/KLOR-CON) extended release tablet 40 mEq 40 mEq, Oral, ONCE, 1 dose, On Tue12/04/12 at 1800, Routine Given 12/04/2012 5:55 PM EDT 40 mEq potassium chloride (K-DUR/KLOR-CON) extended release tablet 40 mEq 40 mEq, Oral, ONCE, 1 dose, On Tue12/04/12 at 1915, Routine Given 12/04/2012 8:30 PM EDT 40 mEq potassium chloride 10 mEq in 100 mL 10 mEq, Intravenous, EVERY HOUR, 4 doses, First dose on Tue12/04/12 at 1800, Last dose on Tue12/04/12 at 2100, Administer over 60 Minutes Given 12/04/2012 5:56 PM EDT 10 mEq 100 mL/hr promethazine (PHENERGAN) injection 6.25 mg 6.25 mg, Intravenous, EVERY 6 HOURS PRN, Nausea, Starting on Tue12/04/12 at 1342, Until Dayan 12/07/12 at 1439, Avoid extravasation Given 12/06/2012 11:55 PM EDT 6.25 mg Given 12/05/2012 6:43 PM EDT 6.25 mg Given 12/05/2012 5:47 AM EDT 6.25 mg sodium chloride 0.9 % flush 5 mL 5 mL, Intravenous, EVERY 12 HOURS, First dose on Tue12/03/12 at 0200, Until Discontinued Given 12/06/2012 2:00 PM EDT 5 mLs Given 12/06/2012 2:31 AM EDT 5 mLs Given 12/05/2012 2:00 PM EDT 5 mLs sodium chloride 0.9% infusion 1,000 mL, at 100 mL/hr, Intravenous, CONTINUOUS, Starting on Marion 12/03/12 at 0200, Until Tue12/03/12 at 0937 Rate/Dose Verify 12/03/2012 8:00 AM EDT 1,000 mLs 100 mL/hr New 12/03/2012 2:00 AM EDT 1,000 mLs 100 mL/hr sodium chloride 0.9% infusion 100 mL/hr, Intravenous, CONTINUOUS, Starting on Tue12/03/12 at 1000, Until Tue12/03/12 at 1359 New 12/03/2012 2:00 PM EDT 100 mL/hr 100 mL/hr Rate/Dose Verify 12/03/2012 10:00 AM EDT 100 mL/hr 100 mL /hr sodium chloride 0.9% infusion 100 mL/hr, Intravenous, CONTINUOUS, Starting on Tue12/03/12 at 1430, Until Tue12/04/12 at 0029 New 12/03/2012 11:57 PM EDT 100 mL/hr 100 mL/hr New 12/03/2012 2:00 PM EDT 100 mL/hr 100 mL/hr sodium chloride 0.9% infusion 125 mL/hr, Intravenous, CONTINUOUS, Starting on Tue12/04/12 at 1045, Until Tue12/04/12 at 1856 12/04/2012 1:18 PM EDT 125 mL/hr 125 mL/hr traZODone (DESYREL) tablet 50 mg 50 mg, Oral, NIGHTLY PRN, Starting on Tue12/05/12 at 1722, Until Tue12/07/12 at 1439, Sleep, Routine Given 12/06/2012 9:13 PM EDT 50 mg Given 12/05/2012 8:33 PM EDT 50 mg documented in this encounter Active and Recently Administered Medications Times are shown in EDT. Scheduled Medication Order 12/05/2012 12/06/2012 12/07/2012 ciprofloxacin (CIPRO) tablet 500 mg 500 mg, Oral, 2 TIMES DAILY, First dose on Tue12/04/12 at 1000, Until Discontinued, Routine, Indication for (Active or Suspected): for GI/Intra-abdominal 0625 (Given - Provider: Juliette Barreto RN)1852 (Given - Provider: Socorro Lomeli RN) 0623 (Given - Provider: Radha Guzmán RN)1900 (Given - Provider: Himanshu Gallegos RN) 0650 (Given - Provider: Socorro Lomeli RN) esomeprazole (NEXIUM) injection 40 mg (CANCELED) 40 mg, Intravenous, DAILY, First dose (after last modification) on Tue12/04/12 at 0900, Until Discontinued 0955 (Given - Provider: Socorro Lomeli RN) 0900 (Given - Provider: Himanshu Gallegos RN) 0900 (Given - Provider: Saniya Palmer, MELY) nadolol (CORGARD) tablet 20 mg (CANCELED) 20 mg, Oral, DAILY, First dose on Tue12/05/12 at 1430, Until Discontinued, Hold for HR < 50, SBP < 100 and notify MD, Routine 1430 (Not Given - Provider: Socorro Lomeli RN - Reason: Order parameters not met) 0900 (Given - Provider: Himanshu Gallegos RN) 0900 (Given - Provider: Saniya Palmer, MELY) polyethylene glycol (GoLYTELY;NuLYTELY) Oral solution 2,000 mL (COMPLETED) 2,000 mL, Oral, ONCE, 1 dose, On Tue12/05/12 at 1530, 8-10 ounces PO Q 15 minutes until stooling clear, STAT 1530 (Given - Provider: Socorro M Yani, RN) sodium chloride 0.9 % flush 5 mL (CANCELED) 5 mL, Intravenous, EVERY 12 HOURS, First dose on Tue12/03/12 at 0200, Until Discontinued 0200 (Given - Provider: Juliette Barreto RN)1400 (Given - Provider: Socorro Lomeli RN) 0231 (Given - Provider: Radha Guzmán, MELY)1400 (Given - Provider: Himanshu Gallegos RN) 0251 (Not Given - Provider: Socorro Lomeli RN - Reason: See comment - Comment: IVF) Continuous Medication Order 12/05/2012 12/06/2012 12/07/2012 dextrose 5% and sodium chloride 0.45% with potassium chloride 40 mEq infusion (CANCELED) 100 mL/hr, Intravenous, CONTINUOUS, Starting on Tue12/04/12 at 1915, Until Tue12/07/12 at 1439 1030 (Stopped - Provider: Socorro Lomeli RN)1330 (Restarted - Provider: Socroro Lomeli RN)2017 (New Bag - Provider: Radha Guzmán RN) 0559 (New Bag - Provider: Radha Guzmán RN) 0008 (New Bag - Provider: Socorro Lomeli, MELY)0916 (Restarted - Provider: Saniya Palmer RN)1106 (New Bag - Provider: Barbara Hutchison RN) PRN Medication Order 12/05/2012 12/06/2012 12/07/2012 diphenhydrAMINE [...] Kapadia, MELY)1154 (Given - Provider: Davi Kapadia RN) fentaNYL 50 mcg/mL 5 mL multidose injection (CANCELED) ONCE PRN, Starting on Tue12/05/12 at 1149, Until Tue12/05/12 at 1230, Pain, comfort, Intra-Operative (Intra-Procedure), Routine 1149 (Given - Provider: Davi Kapadia RN)1154 (Given - Provider: Davi Kapadia, RN)1158 (Given - Provider: Davi Kapadia RN) midazolam (VERSED) injection (CANCELED) ONCE PRN, Starting on Tue12/05/12 at 1154, Until Tue12/05/12 at 1230, Sleep, Intra-Operative (Intra-Procedure), Routine 1149 (Given - Provider: Davi Kapadia, RN)1154 (Given - Provider: Davi Kapadia, RN)1159 (Given - Provider: Davi Kapadia RN) [...] Avoid extravasation 0547 (Given - Provider: Rosario Staley, MELY)1843 (Given - Provider: Socorro Lomeli, MELY) 2355 (Given - Provider: Socorro Lomeli, MELY) traZODone (DESYREL) tablet 50 mg 50 mg, Oral, NIGHTLY PRN, Starting on 12/05/12 at 1722, Until Dayan 12/07/12 at 1439, Sleep, Routine 2032 (Given - Provider: Radha Guzmán, MELY) 2112 (Given - Provider: Socorro Lomeli RN) [...] ineffective documented in this encounter Care Teams Slp Teacher Relationship Specialty Start Date End Date Laurie Manzo MD [address] [address] PCP - General 03/03/10 02/12/19 documented as of this encounter
--- OUTSIDE RECORDS SUMMARY | 2023-12-21 12:03 | XMS_ITS | Encounter Summary ---
[place] [address] Care Team Providers Care Billing Services Manager Name Role Phone KayodeKatia arroyo SAMANTHA Primary Care Provider [phone] Reason for Visit * Reason Comments Follow-up Encounter Details Date Type Department Care Team (Late st Contact Info) Description 05/28/2022 8:30 AM EST Office Visit Dermatology at [address] [place] [address] Jin Nunez MD [address] [facility] [place] [address] History of basal cell carcinoma; Nevus Social [...] Progress Notes * Jin Nunez MD - 05/28/2022 8:30 AM EST Problem: 1. ??Repeat skin checkup 2. 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 ??History of growing up in [place] and many years spent in [place] 4. 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 I last seen him in November 6 months ago. He has not noted any new lesions of concern. The pigmented BCCA treatment site from the glabella at his last visit has has healed well. 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 Physical examination reveals a pleasant [age]-year-old gentleman who has moderate solar damage diffusely of the face the hands arms forearms chest and back. He has no evidence of recurrent BCCA at the Mohs surgical site from 2015, as noted above, nor at his forehead at the glabellar site from November.. There are no pigmented lesions of concern. Assessment plan: Benign skin examination the patient with a history of BCCA's 1. Sites have healed well 2. No evidence of recurrence 3. Recommend return to clinic in another 6 months for repeat check 4. If doing well may be able to space out to once yearly visits. CC: Katia Blanco APRN documented in this encounter Plan of Treatment Upcoming Encounters Date Type Department Care Team (Late st Contact Info) Description 2024 8:15 AM EST Office Visit Dermatology at [address] [place] [address] Jin Nunez MD [address] [facility] [place] [address] documented as of this encounter Visit Diagnoses Diagnosis History of basal cell carcinoma Personal history of other malignant neoplasm of skin Nevus Benign neoplasm of skin, site unspecified documented in this encounter Care Teams Billing Services Manager Relationship Specialty Start Date End Date Katia Blanco APRN [address] [place] [address] PCP - General Family Medicine 02/13/19 11/11/22 documented as of this encounter
--- OUTSIDE RECORDS SUMMARY | 2023-12-21 12:03 | XMS_ITS | Encounter Summary ---
[place] [address] Care Team Providers Care Information Technology Internship Name Role Phone Katia Blanco APRN Primary Care Provider Encounter Details Date Type Department Care Team (Latest Contact Info) Description 05/28/2022 Travel Social History Tobacco Use Types Packs/Day [...] 8:15 AM EST Office Visit Dermatology at [address] [place] [address] Jin Nunez MD [address] [address] [place] [address] documented as of this encounter Visit Diagnoses Not on filedocumented in this encounter Care Teams Information Technology Internship Relationship Specialty Start Date End Date Katia Blanco APRN [address] [place] [address] PCP - General Family Medicine 02/13/19 11/11/22 documented as of this encounter
--- OUTSIDE RECORDS SUMMARY | 2023-12-21 12:03 | XMS_ITS | Encounter Summary ---
[place] [address] Care Team Providers Care Adjunct Instructor Name Role Phone Laurie Wiggins MD Primary Care Provider [phone] Encounter Details Date Type Department Care Team (Late st Contact Info) Description 12/27/2012 Orders Only [place] [address] Paty Pedraza, [facility] [place] [address] Cirrhosis (Primary Dx) Social History Tobacco Use Types Packs/Day Years [...] 8:15 AM EST Office Visit Dermatology at [place] [address] [facility] [place] [id number] Jin Nunez MD [address], [place] [address] documented as of this encounter Visit Diagnoses Diagnosis Cirrhosis- Primary Cirrhosis of liver without mention of alcohol documented in this encounter Care Teams Adjunct Instructor Relationship Specialty Start Date End Date Laurie Wiggins MD [address] [place] [address] PCP - General 03/03/10 02/12/19 documented as of this encounter
--- OUTSIDE RECORDS SUMMARY | 2023-12-21 12:03 | XMS_ITS | Encounter Summary ---
[place] [address] Care Team Providers Care Locker Room Clerk Name Role Phone Katia Blanco APRN Primary Care Provider Encounter Details Date Type Department Care Team (Late Contact Info) Description 11/27/2021 Telephone Dermatology at [address] [address] Francia Pichardo RN Social History Tobacco Use [...] on file documented as of this encounter Miscellaneous Notes * Telephone Encounter - Francia Pichardo RN - 11/27/2021 8:32 AM EDT Patient called and informed results of pathology. Patient had a shave biopsy on supraglabella forehead on 11/20/2021. Diagnosis Basal cell carcinoma. Per Dr. Nunez no further treatment is needed. Patient stated that he understood. Patient does have a follow up on 05/21/2022 and reminded of his appointment. Patient stated no questions or concerns at this time. documented in this encounter Plan of Treatment Upcoming Encounters Date Type Department Care Team (Late st Contact Info) Description 2024 8:15 AM EST Office Visit Dermatology at [place] [address] [place] [address] Jin Nunez MD [address], [place] [address] documented as of this encounter Visit Diagnoses Not on filedocumented in this encounter Care Teams Locker Room Clerk Relationship Specialty Start Date End Date Katia Blanco, [employer] [address] [place] [address] PCP - General Family Medicine 02/13/19 11/11/22 documented as of this encounter
--- OUTSIDE RECORDS SUMMARY | 2023-12-21 12:03 | XMS_ITS | Encounter Summary ---
[place] [address] Care Team Providers Care Cashier Or Checker Stock Clerk Name Role Phone George Lou Primary Care Provider [phone] Reason for Visit * Reason Comments Follow-up Encounter Details Date Type Department Care Team (Late st Contact Info) Description 05/20/2023 8:15 AM EST Office Visit Dermatology at [address] [place] [address] iJn Nunez MD [address] [facility] [facility], [place] [address] History of basal cell carcinoma; Nevus Social [...] Progress Notes * Jin Nunez MD - 05/20/2023 8:15 AM EST Problem: 1. 6-month repeat skin checkup 2. 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 History of growing up in [place] and many years spent in [place] 4. 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 Alonzo follows up for repeat skin checkup. He has not noticed any new lesions of concern. He has no symptoms of Lyme disease after I removed an embedded tick last visit and treated him with 2 doses ofdoxycycline. Physical examination reveals a pleasant 67-year-old gentleman who has a benign examination of the head and the neck the chest the back the hands arms and forearms. There is no evidence of recurrent tumor at the above treatment prior treatment sites. Assessment plan: Benign skin examination 1. Patient reassured about his benign skin examination 2. Return to clinic in a year for repeat check 3. Reinforced sun avoidance precautions which the patient is following. History of hypertension 1. Patient states that his blood pressure is now well-controlled as this is blood sugar on new medications. 2. Patient congratulated on this improvement. CC: QUYNH Jameson documented in this encounter Plan of Treatment Upcoming Encounters Date Type Department Care Team (Late st Contact Info) Description 2024 8:15 AM EST Office Visit Dermatology at [place] [address] [place] [address] Jin Nunez MD [address], [place] [address] documented as of this encounter Visit Diagnoses Diagnosis History of basal cell carcinoma Personal history of other malignant neoplasm of skin Nevus Benign neoplasm of skin, site unspecified documented in this encounter Care Teams Cashier Or Checker Stock Clerk Relationship Specialty Start Date End Date George Lou PA [address] [place] [address] PCP - General Internal Medicine 11/12/22 documented as of this encounter
--- OUTSIDE RECORDS SUMMARY | 2023-12-21 12:03 | XMS_ITS | Encounter Summary ---
[place] [address] Care Team Providers Care Rn Team Leader Name Role Phone George Lou Primary Care Provider [phone] Encounter Details Date Type Department Care Team (Latest Contact Info) Description 11/12/2022 Travel Social History Tobacco Use Types Packs/Day [...] 8:15 AM EST Office Visit Dermatology at [place] [employer] [address] [place] [address] Jin Nunez MD [address], [place] [address] documented as of this encounter Visit Diagnoses Not on filedocumented in this encounter Care Teams Rn Team Leader Relationship Specialty Start Date End Date George Lou PA Cher[address] [facility] [address] [place] [address] PCP - General Internal Medicine 11/12/22 documented as of this encounter
--- OUTSIDE RECORDS SUMMARY | 2023-12-21 12:04 | XMS_ITS | Encounter Summary ---
[place] [address] Care Team Providers Care Meat Carver Name Role Phone Gina Manzo MD Primary Care Provider [phone] Encounter Details Date Type Department Care Team (Late st Contact Info) Description 12/03/2012 11:20 AM EDT - 12/03/2012 11:50 AM EDT [place] [address] Gustabo Garza MD [facility] [place] [address] EGD, UPPER GI ENDOSCOPY (WRVU 2.09) Social History Tobacco Use Types Packs/Day Years [...] follow-up with your primary care physician and debone supervisor. You will need a blood test the [...] scheduled with Dr. GINA MANZO MD at [address] [place] [id number] on December 14 at 10:45 am. Future Appointments Date Time Provider Department Center 12/28/2012 8:45 AM 2, Ultrasound Rm [facility] None 12/28/2012 11:30 AM Paty Pedraza APRN [facility] [place] [facility] [place] [facility] Your Discharge Medication List Unchanged SENIOR ENERGY MARKET COORDINATOR meds that are or will be resumed Medication Status Sig Dispense Refill ??? multivitamin (THERAGRAN) tablet Active Take 1 tablet by mouth daily. Changed SENIOR ENERGY MARKET COORDINATOR meds Medication Status Sig Dispense Refill ??? [...] as needed for Sleep. 20 tablet 0 SENIOR ENERGY MARKET COORDINATOR meds that are DCed or will be [...] mouth daily. Your Inpatient Medical Team at [facility] Name(s) of your inpatient provider(s): Drs. Andres Thompson, Cory Tellez, Ernesto Cardona, Gustabo Garza For questions regarding issues relating to your hospitalization on the Hospital Medicine Service, please contact your inpatient physician through the [facility] Booth Cleaner [phone]. Issues after hours and on weekends will be handled by the Hospitalist staff on-call. Your Primary Care Provider GINA MANZO MD [phone] documented in this encounter Medications at Time [...] spent >30 minutes (Day of Discharge Code 86625) involved in the final examination of the [...] Cory Tellez - 12/06/2012 8:35 AM EDT [facility] Medicine - Attending Daily Progress Note Date of Admission: 12/02/2012 Active and Resolved Problems This Admission: Active Hospital Problems Diagnosis ??? GI bleed Resolved Hospital Problems Diagnosis Date Resolved No resolved problems to display. Other Past Medical History: Active Non-Hospital Problems Diagnosis ??? Cirrhosis ??? Alcohol abuse, episodic drinking behavior History reviewed. No pertinent past medical history. 24 Hour Events/Subjective: H+H, vitals stable [place] negative For capsule endoscopy today to eval [...] friable mucosa throughout the colon, may be patient support representative of por kee hypertension. 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 I updated her today at bedside and spent >40 minutes with them today. -Disposition - pending medical improvement * Julienne Carlisle RN - 12/05/2012 5:16 PM EDT Initial Assessment/CRC Note Office of Care Management Alonzo Urbina 1955 [address] [facility] [address] Late Entry eDH reviewed. Report received from Dr. Tellez. Patient reviewed in multidisciplinary discharge rounds. S: This place is falling apart in my opinion. O: Introduced self and CRC role to patient and carlos Bowers; patient agrees to CRC services; pt currently lives with Elissa in own home in [place], [place]. CRC contact information left on patient [...] insured via Medicare A,B and D via [employer] and [place] [employer]. Transportation: Carlos will transport pt home. Anticipated Services at Discharge: will require re-assessment closer to time of d/c. Social Support Patient has given [facility] permission for carlos Parker ( cell [phone])to be contacted. A: medical plan still evolving. P: This va underwriter or colleague from the Office of Care Management will continue to follow patient to assist w/ changing needs and collaborate w/ pt, medical team and family to formulate a plan for discharge; CRC may be reached on beeper [phone] or by leaving a voice mail message at [phone]. [phone]. See Care Management note in eDH for detailed VNA/DME information upon discharge. Medical Team: Hospitalist Service, pager [phone]. Julienne Carlisle, RN, MSN, [facility] Clinical [place] Office of Care Management Pager [phone] Phone: [phone] * Socorro Lomeli RN - 12/05/2012 3:09 [...] oozing or bleeding. - Normal examined duodenum. [place] 12/05: poor prep with no evidence of [...] to slow oozing from his portal gastropathy. [place] was poor prep with evidence of active [...] them as documented. Ernesto Cardona MD, MS bilingual hr generalist Section of Gastroenterology and Hepatology * Francia Nichole RN - 12/05/2012 12:40 PM EDT Report called to FREDY Niño. 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 I updated her today at bedside and spent >40 minutes with them today. 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 I updated her today at his request. -Disposition - pending medical improvement * Juliette Barreto, MELY - 12/04/2012 1:18 AM EDT Pt had a moderate loose BM at 0100. Black with streaks of adrianna red blood. * Cleopatra Camara, MELY - 12/03/2012 5:54 PM EDT Pt transferred to [address] from ICU accompanied by transportation staff. [...] Cory Tellez - 12/03/2012 8:47 AM EDT [facility] Medicine - Attending Daily Progress Note Date [...] TYPE MANUAL Component Value Range Specimen OD [id number] ABORh Type A Pos SELECTED CELL SCREEN [...] 01/11 -Code status - Full; Elissa ruth ([phone]) is medical decision maker. I updated her [...] Alonzo Urbina is a 57 y.o. , PMH s/o ETOH abuse (sober 12/21), HCV [...] the patient. Consent has been signed. * Jay Andres - 12/02/2012 11:32 PM EDT Inpatient Hospital Medicine - Admission Note Problem List: There are no hospital problems to display for this patient. Active Non-Hospital Problems Diagnosis ??? Cirrhosis ??? Alcohol abuse, episodic drinking behavior ID: 57 y.o. Male presents to [facility] with GI bleed. History of Present Illness: HPI Patient is a 57 Y M with history of Hepatitis C, cirrhosis Portal HTN who was transferred from [facility] for evaluation of GI bleed. Patient says [...] + Extremities: No edema, peripheral pulses + LANDCARE OFFICER: Awake, alert, oriented. No focal deficits. Laboratory [...] 12/08/2012 3:03 PM EDTAssociated Order(s): SCAN DOC: YOUTH CARE PROFESSIONAL * Provider, Scanning - 12/08/2012 2:46 PM [...] a 57 y.o. male who presents to [facility] with GI bleeding History of Present Illness [...] Sharon Gill MD 12/02/122216 Sharon Gill MD 12/02/120 documented in this encounter Miscellaneous Notes * [...] cirrhosis Portal HTN who was transferred from [facility] for evaluation of GI bleed. Patient says [...] friable mucosa throughout the colon, may be patient support representative of por kee hypertension. 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 You will need a blood test the [...] scheduled with Dr. GINA MANZO MD at [address] [place] [address] on , December 14 at 10:45 am. Future Appointments Date Time Provider Department Center 12/28/2012 8:45 AM 2, Ultrasound Rm [facility] None 12/28/2012 11:30 AM Paty Pedraza APRN [facility] Your Discharge Medication List Unchanged SENIOR ENERGY MARKET COORDINATOR meds that are or will be resumed Medication Status Sig Dispense Refill ??? multivitamin (THERAGRAN) tablet Active Take 1 tablet by mouth daily. Changed SENIOR ENERGY MARKET COORDINATOR meds Medication Status Sig Dispense Refill ??? [...] as needed for Sleep. 20 tablet 0 SENIOR ENERGY MARKET COORDINATOR meds that are DCed or will be [...] mouth daily. Your Inpatient Medical Team at [facility] Name(s) of your inpatient provider(s): Drs. Andres Thompson, Cory Tellez, Ernesto Cardona, Gustabo Garza For questions regarding issues relating to your hospitalization on the Hospital Medicine Service, please contact your inpatient physician through the [facility] Booth Cleaner [phone]. Issues after hours and on weekends will be handled by the Hospitalist staff on-call. Your Primary Care Provider GINA MANZO MD [phone] General Instructions None Future Appointments and Orders Future Appointments: Provider: Department: Dept Phone: Center: 12/28/2012 8:45 AM Ultrasound Rm 2 [facility] RAD ULTRASOUND [phone] None 12/28/2012 11:30 AM Paty Pedraza APRN Gastroenterology [phone] [place] [facility] Discharge References/Attachments: Discharge References/Attachments None Inpatient Provider Contact Information: For questions regarding this document or issues relating to this hospitalization on the Medical Service, please contact your inpatient physician through the [facility] Booth Cleaner . Issues afterhours and on weekends will [...] study. Patient has taken the 2000cc of Queryly ordered this afternoon. Medicated for nausea per JUN. * Op Note - Ernesto Cardona MD - 12/05/2012 5:03 PM EDT [facility] Operative Note Patient Name: Alonzo Urbina : [id number] MR#: [id number] Case Date: 12/05/2012 Surgeon: Surgeon(s) and Role: [...] 0 minutes ESTELA BARBA, PT 12/05/2012 Pager: [phone] Physical Therapy Rehabilitation Department * Plan of [...] MD - 12/02/2012 11:59 PM EDT . [facility] Section of Gastroenterology and Hepatology Initial Inpatient Consultation Patient Name: Alonzo Urbina : 1955 Referring provider: Dr. Granados, medicine Date of Consult: 12/02/12 Reason for Consult: UGIB History of Present Illness: Alonzo Urbina is a 57 y.o. WM, [facility] s/o ETOH abuse (sober 12/21), HCV [...] day denies daily use. Had colonoscopy at [facility] reportedly WNL. Last EGD09/21 Dr. Browne, mild [...] ??? cefTRIaxone Active 1 g Intravenous Q24H ARSENOI Physical exam: Filed Vitals: 12/02/12 2330 BP: [...] PM EDT Pt arrived via [facility]. For evaluation of GI bleeding pt is alert oriented resp regular unlabored pt is dizzy when standing skin is cool and pale documented in this encounter Plan of Treatment Upcoming Encounters Date Type Department Care Team (Late st Contact Info) Description 2024 8:15 AM EST Office Visit Dermatology at [place] [address] [place] [address] Jin Nunez MD [address], [place] [address] documented as of this encounter Procedures Procedure Name Priority Date/Time Associated Diagnosis Comments YOUTH CARE PROFESSIONAL SCAN 12/08/2012 3:03 PM EDT LAB SCAN 12/08/2012 2:46 PM EDT DIFFERENTIAL, AUTOMATED STAT 12/07/2012 9:02 AM EDT CBC (WITH DIFF) STAT 12/07/2012 9:02 AM EDT VIDEO CAPSULE ENDOSCOPY Routine 12/06/2012 8:00 AM [...] in this encounter Results * SCAN DOC: YOUTH CARE PROFESSIONAL (12/08/2012 3:03 PM EDT) Anatomical Region Laterality [...] EDT Cory Tellez MD HEMATOLOGY ORDERABLE S Performing Organization Address City/State/[facility] Co de Phone Number [...] Cory Tellez MD HEMATOLOGY ORDERABLE S THEO ARCOS * VIDEO CAPSULE ENDOSCOPY (12/06/2012 8:00 AM EDT) VIDEO CAPSULE ENDOSCOPY [facility] Endoscopy ___ Patient Name: Alonzo Urbina ? Procedure Date: 12/06/2012 8:00 AM ? Date of : 1955 ? Age: 57 ? Order #: [id number] ? ___ Procedure: ? Video capsule endoscopy [...] EDT Param Granados MD HEMATOLOGY ORDERAB LES [facility] CORINEENNIUM * (ABNORMAL) Hepatic Function Panel (12/06/2012 [...] In Lab Cory Tellez MD CHEMISTRY ORDERABLES [facility] [employer]UANIT[employer]IUM * (ABNORMAL) Basic Metabolic Panel (non-fasting) (12/06/2012 6:12 AM EDT) Glucose 126 60 - 199 mg/dL CERNER MILLENNIUM Comment:Diabetes: >=200 mg/d L plus symptoms Blood Urea Nitrogen 8(L) 10 - 20 mg/dL CERNER MILLENNIUM Creatinine 0.84 0.80 - 1.50 mg/dL CERNER MILLENNIUM Comment: Please note that the pediatric reference intervals supplied above were not validated at [facility]. Results from pediatric patients should be interpreted [...] Param Granados MD CHEMISTRY ORDERABL ES CERSIDDHARTH MILLENNIUM * (ABNORMAL) CBC (with Diff) (12/06/2012 [...] Param Granados MD HEMATOLOGY ORDERAB LES THEO POOLENNIUM * (ABNORMAL) Hemoglobin and Hematocrit, blood (12/05/2012 6:51 PM EDT) Hemoglobin 8.9(L) 13.7 - 17.5 gm/dL CERNER MILLENNIUM Hematocrit 27.3(L) 40.0 - 51.0 % CERNER MILLENNIUM Blood specimen (specimen) 12/05/2012 6:51 PM EDT 12/05/2012 6:55 PM EDT Narrative Resulting Agency Comment Spec In Lab Cory Tellez MD HEMATOLOGY ORDERABLE S THEO POOLENNIUM * COLONOSCOPY (12/05/2012 11:38 AM EDT) COLONOSCOPY [facility] Endoscopy ___ Patient Name: Alonzo Urbina ? Procedure Date: 12/05/2012 11:38 AM ? Date of : 1955 ? Age: 57 ? Order #: [id number] ? ___ Procedure: ? Colonoscopy Indications: ? Gastrointestinal occult blood loss Providers: ? Ernesto Cardona MD, Ariana Austin, ? , Davi Kapadia RN, Janie Blood ? Marv, Floor Covering Layer Referring MD: ? Medicines: ? Midazolam 4 [...] ? throughout the colon, may be ? patient support representative of portal hypertension. Recommendation: ?- Although [...] EDT Param Granados MD HEMATOLOGY ORDERAB LES [facility] MILLST. [facility]OSPITALIUM * (ABNORMAL) Basic Metabolic Panel (non-fasting) (12/05/2012 5:39 AM EDT) Pathologist [facility] Glucose 135 60 - 199 mg/dL CERNER MILLENNIUM Comment:Diabetes: >=200 mg/d L plus symptoms Blood Urea Nitrogen 14 10 - 20 mg/dL CERNER MILLENNIUM Creatinine 0.92 0.80 - 1.50 mg/dL CERNER MILLENNIUM Comment: Please note that the pediatric reference intervals supplied above were not validated at [facility]. Results from pediatric patients should be interpreted [...] Lab Param Granados MD HEMATOLOGY ORDERAB LES [facility] ADDIIUM * (ABNORMAL) Hemoglobin and Hematocrit, blood (12/04/2012 9:55 PM EDT) Hemoglobin 7.6(L) 13.7 - 17.5 gm/dL [facility] CORINEENNIUM Hematocrit 22.9(L) 40.0 - 51.0 % [facility]ERSIDDHARTH POOLENNIUM Blood specimen (specimen) 12/04/2012 9:55 PM EDT 12/04/2012 10:07 PM EDT Narrative Resulting Agency Comment Spec In Lab Cory Tellez MD HEMATOLOGY ORDERABLE S [facility] JOSSELYN * APTT (12/04/2012 3:13 PM EDT) Partial Thromboplastin Time 31 25 - 35 sec [facility]ERSIDDHARTH POOLENNIUM Comment: Recommended therapeutic PTT range for [...] MD HEMATOLOGY ORDERABLE S Performing Organization Address [facility] Co de Phone Number CERSIDDHARTH POOLENNIUM * (ABNORMAL) Basic Metabolic Panel (non-fasting) (12/04/2012 3:13 PM EDT) Glucose 118 60 - 199 mg/dL CERNER MILLENNIUM Comment:Diabetes: >=200 mg/d L plus symptoms Blood Urea Nitrogen 20 10 - 20 mg/dL CERNER MILLENNIUM Creatinine 0.94 0.80 - 1.50 mg/dL CERNER MILLENNIUM Comment: Please note that the pediatric reference intervals supplied above were not validated at [facility]. Results from pediatric patients should be interpreted [...] Tellez MD CHEMISTRY ORDERABLES Performing Organization Address City/[facility] de Phone Number THEO FONTANAIUM * (ABNORMAL) Prothrombin Time (12/04/2012 3:13 PM EDT) Prothrombin Time 16.2(H) 12.0 - 15.0 sec CERNER MILLENNIUM Comment: [facility] Transfusion Committee Guidelines: INR less than [...] MD HEMATOLOGY ORDERABLE S Performing Organization Address [facility] de Phone Number THEO POOLENNIUM * (ABNORMAL) Hemoglobin and Hematocrit, blood (12/04/2012 9:13 AM EDT) Hemoglobin 7.7(L) 13.7 - 17.5 gm/dL CERNER MILLENNIUM Hematocrit 23.9(L) 40.0 - 51.0 % CERNER MILLENNIUM Blood specimen (specimen) 12/04/2012 9:13 AM EDT 12/04/2012 9:19 AM EDT Narrative Resulting Agency Comment Spec In Lab Cory Tellez MD HEMATOLOGY ORDERABLE S Performing Organization Address [facility] Co de Phone Number THEO POOLENNIUM * (ABNORMAL) Hemoglobin and Hematocrit, blood (12/04/2012 6:32 AM EDT) Hemoglobin 8.0(L) 13.7 - 17.5 gm/dL CERNER MILLENNIUM Hematocrit 23.8(L) 40.0 - 51.0 % CERNER MILLENNIUM Blood specimen (specimen) 12/04/2012 6:32 AM EDT 12/04/2012 6:58 AM EDT Narrative Resulting Agency Comment Spec In Lab Cory Tellez MD HEMATOLOGY ORDERABLE S CERSIDDHARTH FONTANAIUM * Ammonia (12/04/2012 6:32 AM EDT) Ammonia 30 16 - 60 mcmol/L CERNER MILLENNIUM Blood specimen (specimen) 12/04/2012 6:32 AM EDT 12/04/2012 6:57 AM EDT Narrative Resulting Agency Comment Spec In Lab Cory Tellez MD CHEMISTRY ORDERABLES THEO POOLENNIUM * (ABNORMAL) Hemoglobin and Hematocrit, blood (12/03/2012 11:08 PM EDT) Hemoglobin 8.2(L) 13.7 - 17.5 gm/dL CERNER MILLENNIUM Hematocrit 24.5(L) 40.0 - 51.0 % CERNER MILLENNIUM Blood specimen (specimen) 12/03/2012 11:08 PM EDT 12/03/2012 11:13 PM EDT Narrative Resulting Agency Comment Spec In Lab Cory Tellez MD HEMATOLOGY ORDERABLE S Performing Organization Address [facility]/ZIP Co de Phone Number CERSIDDHARTH POOLENNIUM * (ABNORMAL) Hemoglobin and Hematocrit, blood (12/03/2012 4:50 PM EDT) Hemoglobin 8.2(L) 13.7 - 17.5 gm/dL CERNER MILLENNIUM Hematocrit 25.1(L) 40.0 - 51.0 % CERNER MILLENNIUM Blood specimen (specimen) 12/03/2012 4:50 PM EDT 12/03/2012 4:50 PM EDT Narrative Resulting Agency Comment Spec In Lab Cory Tellez MD HEMATOLOGY ORDERABLE S THEO POOLENNIUM * Transfuse RBC (12/03/2012 12:06 PM EDT) Cory Tellez MD NURSING TREATMENT OR DERABLES - BLOOD ADMIN * Prepare RBC (12/03/2012 9:40 AM EDT) Dispensed? Yes THEO FONTANAIUM Blood specimen (specimen) 12/03/2012 9:40 AM EDT 12/03/2012 9:36 AM EDT Cory Tellez MD BLOOD BANK PRODUCT O RDERABLES THEO FONTANAIUM * POCT Glucose (12/03/2012 6:35 AM EDT) Glucose, POC 129 60 - 199 mg/dL THEO FONTANAIUM Comment: Supplemental ranges: <110 mg/dL before meals <200 mg/dL all other times of the day Blood specimen (specimen) 12/03/2012 6:35 AM EDT 12/03/2012 6:35 AM EDT Param Granados MD POINT OF CARE TEST ORDERABLES Performing Organization Address City/[facility]/ZIP Co de Phone Number THEO ARCOS * [...] EDT Param Granados MD HEMATOLOGY ORDERAB LES [facility] [employer] CentersENNIUM * (ABNORMAL) Basic Metabolic Panel (non-fasting) (12/03/2012 6:33 AM EDT) Glucose 128 60 - 199 mg/dL CERNER MILLENNIUM Comment:Diabetes: >=200 mg/d L plus symptoms Blood Urea Nitrogen 42(H) 10 - 20 mg/dL CERNER MILLENNIUM Creatinine 0.86 0.80 - 1.50 mg/dL CERNER MILLENNIUM Comment: Please note that the pediatric reference intervals supplied above were not validated at [facility]. Results from pediatric patients should be interpreted [...] MD HEMATOLOGY ORDERAB LES Performing Organization Address [facility] de Phone Number THEO ARCOS * Transfuse RBC (12/03/2012 5:33 AM EDT) Sharon Gill MD NURSING TREATMENT O RDERABLES - BLOOD ADMIN * Transfuse RBC (12/03/2012 5:33 AM EDT) Sharon Gill MD NURSING TREATMENT O RDERABLES - BLOOD ADMIN * POCT Glucose (12/03/2012 1:26 AM EDT) Glucose, POC 105 60 - 199 mg/dL THEO POOLST. MARY'S HOSPITALJHONATHAN Comment: Supplemental ranges: <110 mg/dL before meals <200 mg/dL all other times of the day Blood specimen (specimen) 12/03/2012 1:26 AM EDT 12/03/2012 1:26 AM EDT Param Granados MD POINT OF CARE TEST ORDERABLES Performing Organization Address [facility] Phone Number THEO ARCOS * Prepare RBC (12/02/2012 11:00 PM EDT) Dispensed? Yes THEO ARCOS Blood specimen (specimen) 12/02/2012 11:00 PM EDT 12/02/2012 10:59 PM EDT Sharon Gill MD BLOOD BANK PRODUCT ORDERABLES Performing Organization Address [facility] de Phone Number THEO POOLST. MARY'S HOSPITALJHONATHAN * Selected Cell Screen (12/02/2012 10:30 PM EDT) Ab Screen Interp Previously identified Anti-c, -E. No additional alloantibodies detected.* *Due to the presence of alloantibody(ies) additional time is required for preparation of Red Cell Products. See initial antibody identification report for additional information. THEO ARCOS Blood specimen (specimen) 12/02/2012 10:30 PM EDT 12/02/2012 10:35 PM EDT Narrative Resulting Agency Comment Spec In Lab Sharon Gill MD BLOOD BANK LAB ORDJluis [place] CERNER CORINEENNIUM * ABORh Type Manual (12/02/2012 10:30 PM EDT) Expires at 2359 on: [id number] CERNER MILLENNIUM ABORH Type A Pos CERNER MILLENNIUM Blood specimen (specimen) 12/02/2012 10:30 PM EDT 12/02/2012 10:35 PM EDT Narrative Resulting Agency Comment Spec In Lab Sharon Gill MD BLOOD BANK LAB ORDJluis [place] CERSIDDHARTH POOLENNIUM * Differential, Automated (12/02/2012 10:30 PM EDT) [...] Gran Absolute 0.02 0.00 - 0.05 x10(3)/mcL THEO POOLENNIUM Blood specimen (specimen) 12/02/2012 10:30 PM EDT 12/02/2012 10:33 PM EDT Sharon Gill MD HEMATOLOGY ORDERABL ES Performing Organization Address [facility] de Phone Number THEO POOLENNIUM * Gold Tube HOLD (12/02/2012 10:30 PM EDT) Gold Hold Sample in lab. THEO FONTANAIUM Blood specimen (specimen) 12/02/2012 10:30 PM EDT 12/02/2012 10:33 PM EDT Sharon Gill MD CHEMISTRY ORDERABLE S Performing Organization Address [facility] de Phone Number THEO POOLENNIUM * (ABNORMAL) APTT (12/02/2012 10:30 PM EDT) Partial Thromboplastin Time 36(H) 25 - 35 sec [facility] [employer]NIUM Comment: Recommended therapeutic PTT range for full dose unfractionated heparin is 80-114 seconds. Blood specimen (specimen) 12/02/2012 10:30 PM EDT 12/02/2012 10:33 PM EDT Narrative Resulting Agency Comment Spec In Lab Sharon Gill MD HEMATOLOGY ORDERABL ES Performing Organization Address [facility] de Phone Number THEO POOLENNIUM * (ABNORMAL) Prothrombin Time (12/02/2012 10:30 PM EDT) Prothrombin Time 16.8(H) 12.0 - 15.0 sec [facility] [employer] CentersENNIUM Comment: [facility] Transfusion Committee Guidelines: INR less than [...] intervals supplied above were not validated at [facility]. Results from pediatric patients should be interpreted [...] MD CHEMISTRY ORDERABLE S Performing Organization Address City/[facility] Co de Phone Number [facility] * (ABNORMAL) BUN (12/02/2012 10:30 PM EDT) Blood Urea Nitrogen 41(H) 10 - 20 mg/dL [facility] Blood specimen (specimen) 12/02/2012 10:30 PM EDT 12/02/2012 10:33 PM EDT Narrative Resulting Agency Comment Spec In Lab Sharon Gill MD CHEMISTRY ORDERABLE S Performing Organization Address [facility] Co de Phone Number [facility] * (ABNORMAL) Electrolytes panel (12/02/2012 10:30 PM EDT) Sodium 140 135 - 145 mmol/L [facility] Potassium 4.3 3.5 - 5.0 mmol/L [...] Diagnoses Not on filedocumented in this encounter Administered Medications Inactive Administered Medications - up to 3 most recent administrations Medication Order MAR Action Action Date Dose Rate Site benzocaine (HURRICANE) 20 % oral spray ONCE PRN, Pain, Starting on Tue12/03/12 at 1234, Until Tue12/05/12 at 1230, For Procedural use. [place] on area for one second. May repeat if necessary. Do not exceed a spray duration of 2 seconds., Intra-Operative (Intra-Procedure) Given 12/03/2012 12:34 PM EDT 2 each fentaNYL 50mcg/mL injection ONCE PRN, Starting on Tue12/03/12 at 1234, Until Tue12/05/12 at 1230, Pain, Intra-Operative (Intra-Procedure), Routine Given 12/03/2012 12:36 PM EDT 50 mcg Right Arm Given 12/03/2012 12:34 PM EDT 100 mcg R ight Arm midazolam (VERSED) injection ONCE PRN, Starting on Tue12/03/12 at 1234, Until Tue12/05/12 at 1230, Sleep, Intra-Operative (Intra-Procedure), Routine Given 12/03/2012 12:36 PM EDT 1 mg Right Arm Given 12/03/2012 12:34 PM EDT 2 mg R ight Arm documented in this encounter Active and Recently [...] Socorro Lomeli RN) 0900 (Given - Provider: iHmanshu Gallegos RN) 0900 (Given - Provider: Saniya [...] Lomeli RN)2017 (New Bag - Provider: Radha M Frego, RN) 0559 (New Bag - Provider: Radha [...] Itching, Routine 0307 (Given - Provider: Juliette Barreto RN) diphenhydrAMINE (BENADRYL) injection (CANCELED) ONCE PRN, Starting on Tue12/05/12 at 1149, Until Tue12/05/12 at 1230, Itching, Intra-Operative (Intra-Procedure), Routine 1149 (Given - Provider: Davi Kapadia RN)1154 (Given - Provider: Davi Kapadia RN) fentaNYL 50 mcg/mL 5 mL multidose injection (CANCELED) ONCE PRN, Starting on Tue12/05/12 at 1149, Until Tue12/05/12 at 1230, Pain, comfort, Intra-Operative (Intra-Procedure), Routine 1149 (Given - Provider: Davi Kapadia RN)1154 (Given - Provider: Davi Kapadia RN)1158 (Given [...] Intravenous, EVERY 8 HOURS PRN, Starting on Tue12/03/12 at 0142, Until Dayan 12/07/12 at 1439, Nausea, May repeat times one in 30 minutes if ineffective 1532 (Given - Provider: Socorro Lomeli RN) 0818 (Given - Provider: Himanshu Gallegos, RN)1805 (Given - Provider: Himanshu Gallegos RN) [...] RN)1843 (Given - Provider: Socorro Lomeli RN) 2355 (Given - Provider: Socorro Lomeli RN) traZODone (DESYREL) tablet 50 mg 50 mg, Oral, NIGHTLY PRN, Starting on Tu12/05/12 at 1722, Until Dayan 12/07/12 at 1439, Sleep, Routine 2032 (Given - Provider: Radha Guzmán, MELY) 2112 (Given - Provider: Socorro Lomeli, MELY) Linked Groups Order Group 1: ondansetron (ZOFRAN) [...] ineffective documented in this encounter Care Teams Meat Carver Relationship Specialty Start Date End Date Gina Manzo MD [address] [place] [address] PCP - General 03/03/10 02/12/19 documented as of this encounter
--- OUTSIDE RECORDS SUMMARY | 2023-12-21 12:04 | XMS_ITS | Encounter Summary ---
[place] [address] Care Team Providers Care Chief Crew Scheduler Name Role Phone Laurie Wiggins MD Primary Care Provider [phone] Reason for Visit * Reason Comments Follow-up Encounter Details Date Type Department Care Team (Late st Contact Info) Description 04/17/2012 11:30 AM EST Follow-Up [place] [address] CLINIC, Paty Verdugo APRN [facility] [place] [address] Cirrhosis (Primary Dx) Discharge Disposition: Home Social History Tobacco Use Types Packs/Day Years Used Date Smoking Tobacco: Never Smokeless Tobacco: Never Alcohol Use Standard Drinks/Week Comments Not Asked 0 (1 standard drink = 0.6 oz pur e alcohol) Sex and Gender Information Value Date Recorded Sex Assigned at Not on file Gender Identity Not on file Sexual Orientation Not on file documented as of this encounter Last Filed Vital Signs Vital Sign Reading Time Taken Comments Blood Pressure - - Pulse - - Temperature - - Respiratory Rate - - Oxygen Saturation - - Inhaled Oxygen Concentration - - Weight 79.4 kg (175 lb) 04/17/2012 11:47 AM EST Height 157.5 cm (5' 2) 04/17/2012 11:47 AM EST Body Mass Index 32.01 04/17/2012 11:47 AM EST documented in this encounter Patient Instructions * Patient Instructions* Paty Pedraza APRN - 04/17/2012 12:22 PM EST Ok to take tylenol 500 mg once in the morning You should never take more than 2000 mg of tylenol in one day documented in this encounter Progress Notes * Paty Pedraza APRN - 04/17/2012 11:59 AM EST Mr. 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 He was diagnosed with Hepatitis C several years ago and was placed on Interferon and Ribavirin for one month. 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 It was thought at that time that he was terminal, however remarkably he recovered and does not have memory of the event. It was never clear if the PML was from the Interferon, but certainly he was never retreated. Neurology notes progressive white matter changes with symptomatic improvement. He did develop some neuropsychiatric complications, specifically anger outbursts, whichhe relates happened only after the above neuro incident. The source of his Hepatitis C is likely from the multiple blood transfusions he had in the s. He has severe scoliosis and required multiple surgeries including a Sanchez siva. He continues to have chronic back pain and takes methadone and hydromorphone for pain control. In 2007 he had a gi bleed (outside hospital) and required 4 units of blood. He underwent serial variceal band ligation ( at [facility])and was banded in December 2007 (6 bands), January 2008 ( 4 bands) and April of 2008 (3 bands). 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 He was taking Nadolol for portal hypertension and was stable until October 12 of this year when he had hematemesis and was admitted to the hospital. He did not require a blood transfusion and his endoscopy showed esophagitis but no obvious varices, hg was 13 in the ED and dropped to 9.9 in the ICU. He was hospitalized in February of 2010 here with a gi bleed and no obvious source of blood loss. 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 He underwent a small bowel capsule study which was also negative. IN late 2010 he reports that he had another episode of gi tract bleeding which did not require blood transfusion, this was sparked by consuming alcohol. He binge drinks several times a year and this may be the source of his bleeding episodes. He was hospitalized again locally and this time when jays had not heard from him for several days they called 911 to do a safety check, he was found down in his house and brought to a local ED. He had been drinking again and this time apparently had seizures. Alma returns today and is feeling well, he reports that he has not been drinking alcohol, he has been going to counseling, he is starting a new relationship. He further denies any gi tract bleeding,he continues to take a small amount of aldactone for peripheral edema. He thinks he had an imaging s tudy last spring but is not sure. No recent labs. Alma reports that in March he started to experience confusion and memory difficulties, he was admitted to the hospital for encephalopathy. He was released after three days to home. He followed upwith his PCP after that and there was a discrepancy about his pain medication. He asked for the pain medication and his provider reported that she had just given him a prescription. He then does not know what happened to him but he woke up again in the hospital. He was treated for a barbiturates overdose, he was evaluated by a psychiatrist. He is off of his pain medication and he reports that he is feeling well. He spent some time in a rehab to regain some strength. He reports today that he has been sober at least 5 months. He denies bleeding, no swelling, he has lost weight. Ultrasound - Abdomen Complete - Summary 1. Cirrhotic appearance of the liver with recanalized periumbilical vein and mild splenomegaly. No focal hepatic lesions identified. Ascites not present. 2. Limited evaluation of both pancreas and right kidney due to overlying bowel gas. 2. Remainder of the study within normal limits. Results for ALMA CARBALLO ( ) as of 04/17/2012 15:40 Ref. Range 04/17/2012 08:52 WBC Latest Range: 4.0-10.0 x10(3)/mcL 8.2 RBC Latest Range: 4.63-6.08 x10(6)/mcL 4.51 (L) Hemoglobin Latest Range: 13.7-17.5 gm/dL 14.7 Hematocrit Latest Range: 40.0-51.0 % 43.4 MCV Latest Range: 79.0-92.0 fL 96.2 (H) MCH Latest Range: 25.6-32.2 pg 32.6 (H) MCHC Latest Range: 32.0-36.5 gm/dL 33.9 RDWSD Latest Range: 35.0-46.0 fL 50.0 (H) RDWCV Latest Range: 10.9-14.4 % 14.1 Platelets Latest Range: 145-370 x10(3)/mcL 152 MPV Latest Range: 9.0-12.0 fL 9.4 Neutr Abs (ANC) Latest Range: 1.50-6.30 x10(3)/mcL 5.49 Neutrophils % Latest Range: 34.0-71.0 % 67.1 Immature Gran % Latest Range: 0.00-0.66 % 0.20 Lymphocytes % Latest Range: 19.0-53.0 % 21.9 Monocytes % Latest Range: 4.0-13.0 % 7.4 Eosinophils % Latest Range: 0.0-7.0 % 3.3 Basophils % Latest Range: 0.0-2.0 % 0.1 Madonna Gran Abs Latest Range: 0.00-0.05 x10(3)/mcL 0.02 Lymphocytes Abs Latest Range: 1.0-3.6 x10(3)/mcL 1.8 Monocyte Abs Latest Range: 0.2-1.0 x10(3)/mcL 0.6 Eosinophils Abs Latest Range: 0.0-0.5 x10(3)/mcL 0.3 Basophils Abs Latest Range: 0.0-0.2 x10(3)/mcL 0.0 Total Bilirubin Latest Range: 0.2-1.3 mg/dL 0.8 Bili, Direct Latest Range: 0.0-0.3 mg/dL 0.3 Alk Phos Latest Range: 40-120 unit/L 71 AST Latest Range: 0-39 unit/L 42 (H) ALT Latest Range: 0-55 unit/L 41 PT Latest Range: 11.9-14.7 sec 14.5 INR Latest Range: 0.9-1.1 1.1 Sodium Latest Range: 135-145 mmol/L 140 Potassium Latest Range: 3.5-5.0 mmol/L 5.2 (H) Chloride Latest Range: 98-107 mmol/L 107 CO2 Latest Range: 22-31 mmol/L 23 Anion Gap Latest Range: 5-15 mmol/L 10 BUN Latest Range: 10-20 mg/dL 34 (H) Creatinine Latest Range: 0.80-1.50 mg/dL 1.21 Estimated GFR Latest Range: >=60 >60 Glucose Lvl Latest Range: 60-199 mg/dL 118 Calcium Latest Range: 8.5-10.5 mg/dL 10.2 Total Protein Latest Range: 6.4-8.3 gm/dL 8.8 (H) Albumin Latest Range: 3.2-5.2 gm/dL 4.1 Review of Systems Constitutional: Negative for fatigue. Respiratory: Negative for cough and shortness of breath. Cardiovascular: Negative for chest pain. Gastrointestinal: Negative for nausea, vomiting and abdominal pain. Musculoskeletal: Positive for back pain. Physical Exam Constitutional: He is oriented to person, place, and time. He appears well- developed and well-nourished. HENT: Head: Normocephalic and atraumatic. Eyes: Pupils are equal, round, and reactive to light. No scleral icterus. Neck: No thyromegaly present. Cardiovascular: Normal rate, regular rhythm and normal heart sounds. No murmur heard. Pulmonary/Chest: Effort normal. He has no wheezes. Abdominal: Soft. Bowel sounds are normal. There is no tenderness. Musculoskeletal: He exhibits no edema. Neurological: He is alert and oriented to person, place, and time. Skin: Skin is warm and dry. Psychiatric: He has a normal mood and affect. His behavior is normal. Assessment and Plan: 1. Cirrhosis needs to continue with biannual hepatoma surveillance. NO masses seen on today's imaging, he will need to have this test again in six months. 2. Portal hypertension, at this time I think that all of his episodes of bleeding are brought on bybinge alcohol abuse. He has had some time sober at this point and his hg level is great. Will continue to monitor his condition, no intervention at this time. 3. Alcohol abuse, he reports that he has been sober since his last visit. 4. Back pain, he has been taking naprosyn 500 mg bid, we discussed that his creatinine is up a bit with the use of this drug. We discussed the issue of pain control at this time, certainly I would not suggest returning to narcotics as he is doing well with out them. However the NSAIDS can become problematic in cirrhotic patients. He can safely take up to 2000 mg of tylenol per day. He will reducehis naprosyn to the over the counter aleve which is 220 mg at night and will take 1 or 2 extra strength tylenol in the morning if needed for pain. I have asked that he have his creatinine repeated with his pcp in about a month. documented in this encounter Plan of Treatment Upcoming Encounters Date Type Department Care Team (Late st Contact Info) Description 2024 8:15 AM EST Office Visit Dermatology at [place] [address] [place] [address] Jin Nunez MD [address], [place] [address] Scheduled Orders Name Type Priority Associated Diagnoses Orde r Schedule Comprehensive metabolic panel (non-fasting) Lab Routine Cirrhosis Expected: 09/09/2012 (Approximate), Expires: 11/08/2012 CBC (with Diff) Lab Routine Cirrhosis Expected: 09/09/2012 (Approximate), Expires: 11/08/2012 Prothrombin Time Lab Routine Cirrhosis Expected: 09/09/2012, Expires: 11/08/2012 AFP tumor marker Lab Routine Cirrhosis Expected: 09/09/2012, Expires: 11/08/2012 documented as of this encounter Procedures Procedure Name Priority Date/Time Associated Diagnosis Comments DIFFERENTIAL, AUTOMATED Routine 04/17/2012 8:52 AM EST AFP TUMOR MARKER Routine 04/17/2012 8:52 AM EST Cirrhosis PROTHROMBIN TIME Routine 04/17/2012 8:52 AM EST Cirrhosis CBC (WITH DIFF) Routine 04/17/2012 8:52 AM EST Cirrhosis COMPREHENSIVE METABOLIC PANEL Routine 04/17/2012 8:52 AM EST Cirrhosis documented in this encounter Results * Differential, Automated (04/17/2012 8:52 AM EST) Neutrophil % 67.1 34.0 - 71.0 % [facility] Neutrophil Absolute 5.49 1.50 - 6.30 x10(3)/[facility]ERNER MILLENNIUM Lymph % 21.9 19.0 - 53.0 % [facility] MILLENNIUM Lymphocytes Abs 1.8 1.0 - 3.6 x10(3)/[facility] MILLENNIUM Monocyte % 7.4 4.0 - 13.0 % [facility] Monocyte Abs 0.6 0.2 - 1.0 x10(3)/[facility] CERNER MILLENNIUM Eos % 3.3 0.0 - 7.0 % [facility]ILL[facility] Eosinophils Abs 0.3 0.0 - 0.5 x10(3)/[facility] C[facility] MILLENNIUM Basophil % 0.1 0.0 - 2.0 % [facility] Baso Absolute 0.0 0.0 - 0.2 x10(3)/[facility] MILLENNIUM Immature Gran % 0.20 0.00 - 0.66 % [facility] Comment: Immature granulocytes(IG's)percentage and absolute count will include metamyelocytes, myelocytes, and promyelocytes. Blood smears from CBCs yielding IG's will be scanned manually for concordance. If this scan disagrees with the automated IG or if promyelocytes are noted, a manual differential will be performed. Immature Gran Absolute 0.02 0.00 - 0.05 x10(3)/mcL [facility]INE[facility] Blood specimen (specimen) 04/17/2012 8:52 AM EST 04/17/2012 8:56 AM EST Gustabo Garza MD HEMATOLOGY ORDERABL ES [facility] * (ABNORMAL) AFP tumor marker (04/17/2012 8:52 AM EST) Pathologist [facility] Alpha Fetoprotein 6(H) <=5 ng/mL [facility] Comment: Note new Reference Range as of 12-20-2011. Reference: Immulite 2000 AFP package insert ([id number], 2009-01-02) Blood specimen (specimen) 04/17/2012 8:52 AM EST 04/17/2012 12:01 PM EST Narrative Resulting Agency Comment Spec In Lab Gustabo Garza MD CHEMISTRY ORDERABLE S Performing Organization Address [facility] de Phone Number [facility] * Prothrombin Time (04/17/2012 8:52 AM EST) Prothrombin Time 14.5 11.9 - 14.7 sec [facility] MILLENNIUM Comment: [facility] Transfusion Committee Guidelines: INR less than 2.0, PTT less than OR equal to 43.5 seconds, or Fibrinogen greater than or equal to 100 mg/dl indicate adequate procoagulant activity for hemostasis in patients without underlying bleeding disorders. International Normalization Ratio 1.1 0.9 - 1.1 [facility]ILL[facility] Blood specimen (specimen) 04/17/2012 8:52 AM EST 04/17/2012 8:56 AM EST Narrative Resulting Agency Comment Spec In Lab Gustabo Garza MD HEMATOLOGY ORDERABL ES Performing Organization Address [facility] Phone Number [facility] * (ABNORMAL) Comprehensive metabolic panel (non-fasting) (04/17/2012 8:52 AM EST) Glucose 118 60 - 199 mg/dL [facility] Comment:Diabetes: >=200 mg/d L plus symptoms Blood Urea Nitrogen 34(H) 10 - 20 mg/dL [facility] Creatinine 1.21 0.80 - 1.50 mg/dL [facility] Comment: Please note that the pediatric reference intervals supplied above were not validated at [facility]. Results from pediatric patients should be interpreted in conjunction to the patient's age, height and muscle mass. Sodium 140 135 - 145 mmol/L [facility] Potassium 5.2(H) 3.5 - 5.0 mmol/L [facility] Comment: Please note: ??Patients with WBC >100,000 may have falsely elevated Potassium levels. ??For accurate Potassium quantification in these patients send serum separator tube (gold top) for subsequent determinations. ??Contact the Clinical Chemistry Laboratory if there are any questions. Chloride 107 98 - 107 mmol/L [facility] Carbon Dioxide 23 22 - 31 mmol/L [facility] Anion Gap 10 5 - 15 mmol/L [facility] Calcium 10.2 8.5 - 10.5 mg/dL [facility] Protein, Total 8.8(H) 6.4 - 8.3 gm/dL [facility] Albumin 4.1 3.2 - 5.2 gm/dL [facility] Aspartate Aminotransferase 42(H) 0 - 39 unit/L [facility] Alanine Aminotransferase 41 0 - 55 unit/L [facility] Alkaline Phosphatase 71 40 - 120 unit/L [facility] Bilirubin, Total 0.8 0.2 - 1.3 mg/dL [facility] Bilirubin, Direct 0.3 0.0 - 0.3 mg/dL [facility] Est Glomerular Filtration Rate >60 >=60 [facility]ILL[facility] Comment: The National Kidney Disease Education Program (NKDEP) has recommended all laboratories report estimated GFR (eGFR) along with plasma creatinine measurements to assist you with recognition of early kidney disease. Caveats: ??Plasma creatinine should be at steady-state (unchanged within the past week). For patients multiply eGFR by 1.2. The MDRD equation was developed using patients between the ages of 18 and 70 years. ?? The MDRD equation has not been validated for patients < 18 years of age and should not be used to assess renal function in the pediatric population. ??The MDRD eGFR equation will also overestimate the true GFR of patients above the age of 70. ??This overestimation is variable but increases with age. At present, NKDEP does NOT recommend using the MDRD equation for drug dosing purposes and pharmacists should continue to use their current dosing methods. In addition, numerical eGFR values greater than 60 ml/min/1.73 square meters should be treated as > 60, and not an exact number due to greater inaccuracies at these higher values. Per NKDEP, they classify normal renal function as any GFR >60ml/min/1.73 square meters; chronic kidney disease when GFR <60, and renal failure when GFR <15. ??This calculation may not be valid for patients with atypical muscle mass (very lean or obese), acute renal failure, and in patients with diabetic kidney disease. References: http://nkdep.nih.gov/resources/NKDEP_Suggestn4Labs_0606_508.pdf http://www.kidney.org/professionals/kls/pdf/faq_gfr.pdf Kyle K, April NA, Sadia AK, Jarvis TS, Yohana AD, Anival BESSIE. Relative performance of the MDRD and CKD-EPI equations for estimating glomerular filtration rate among patients with varied clinical presentations. Clin J Am Soc Nephrol;6:1963-72. Blood specimen (specimen) 04/17/2012 8:52 AM EST 04/17/2012 8:56 AM EST Narrative Resulting Agency Comment Spec In Lab Gustabo Garza MD CHEMISTRY ORDERABLE S [facility] * (ABNORMAL) CBC (with Diff) (04/17/2012 8:52 AM EST) White Blood Cell 8.2 4.0 - 10.0 x10(3)/mc L [facility]ILL[facility] Red Blood Cell 4.51(L) 4.63 - 6.08 x10(6)/mc L [facility] Hemoglobin 14.7 13.7 - 17.5 gm/dL [facility]ILL[facility] Hematocrit 43.4 40.0 - 51.0 % [facility] MILLENNI[facility] Mean Cell Volume 96.2(H) 79.0 - 92.0 fL [facility] MILL[facility] Mean Cell Hemoglobin 32.6(H) 25.6 - 32.2 pg [facility] MILLENNI[facility] Mean Cell Hemoglobin Concentration 33.9 32.0 - 36.5 gm/dL [facility] Platelet 152 145 - 370 x10(3)/mc L [facility] RDW Standard Deviation 50.0(H) 35.0 - 46.0 fL [facility]ILLEN[facility] RDW coefficient of variation 14.1 10.9 - 14.4 % [facility] MILLENNIUM Mean Platelet Volume 9.4 9.0 - 12.0 fL [facility]ILL[facility] Blood specimen (specimen) 04/17/2012 8:52 AM EST 04/17/2012 8:56 AM EST Narrative Resulting Agency Comment Spec In Lab Gustabo Garza MD HEMATOLOGY ORDERABL ES [facility] documented in this encounter Visit Diagnoses Diagnosis Cirrhosis- Primary Cirrhosis of liver without mention of alcohol documented in this encounter Care Teams Chief Crew Scheduler Relationship Specialty Start Date End Date Laurie Wiggins MD [address] [place] [address] PCP - General 03/03/10 02/12/19 documented as of this encounter
--- OUTSIDE RECORDS SUMMARY | 2023-12-21 12:04 | XMS_ITS | Encounter Summary ---
[place] [address] Care Team Providers Care Signal Worker Helper Name Role Phone Laurie Wiggins MD Primary Care Provider +1- [phone] Reason for Visit * Reason Comments Follow-up Encounter Details Date Type Department Care Team (Late st Contact Info) Description 09/27/2012 10:30 AM EDT [place] [address] Paty Pedraza APRN [facility] [place] [address] Anemia (Primary Dx) Discharge Disposition: Home Social History [...] Sign Reading Time Taken Comments Blood Pressure 115/74 09/27/2012 10:21 AM EDT Pulse 60 09/27/2012 10:21 AM EDT Temperature - - Respiratory Rate - - Oxygen Saturation - - Inhaled Oxygen Concentration - - Weight 86.2 kg (190 lb) 09/27/2012 10:21 AM EDT Height 157.5 cm (5' 2) 09/27/2012 10:21 AM EDT Body Mass Index 34.75 09/27/2012 10:21 AM EDT documented in this encounter Progress Notes * Paty Pedraza APRN - 09/27/2012 11:03 AM EDT GI PROBLEM LIST: 1. Cirrhosis History of gi tract bleeding, typically associated with etoh binging 2007 he had a gi bleed (outside hospital) and required 4 units of blood. serial variceal band ligation ( at [facility]) and was banded in December 2007 (6 bands), January 2008 (4 bands) and April of 2008 (3 bands). Nadolol for portal hypertension stable until October 12, 2009hematemesis and was admitted to the hospital. He did not require a blood transfusion and his endoscopy showed esophagitis but no obvious varices, hg was 13 in the ED and dropped to 9.9 in the ICU. February of 2010 gi bleed ? from [facility] small bowel capsule study which was also negative. 2010 he reports that he had another episode of gi tract bleeding which did not require blood transfusion, this was sparked by consuming alcohol. 2. Hepatitis C Treated with Peg interferon and ribavirin for one month and developed leukoencephalopathy History of multiple blood transfusion in 3. Alcohol abuse Reports that he is sober Ultrasound - Abdomen Complete - Summary 1. Cirrhotic appearance of the liver with recanalized periumbilical vein and mild splenomegaly. No focal hepatic lesions identified. Ascites not present. 2. Limited evaluation of both pancreas and right kidney due to overlying bowel gas. 2. Remainder of the study within normal limits. Results for ALMA CARBALLO ( ) as of 11/17/2012 15:06 Ref. Range 09/27/2012 08:29 WBC Latest Range: 4.0-10.0 x10(3)/mcL 4.7 RBC Latest Range: 4.63-6.08 x10(6)/mcL 3.39 (L) Hemoglobin Latest Range: 13.7-17.5 gm/dL 10.8 (L) Hematocrit Latest Range: 40.0-51.0 % 32.2 (L) MCV Latest Range: 79.0-92.0 fL 95.0 (H) MCH Latest Range: 25.6-32.2 pg 31.9 MCHC Latest Range: 32.0-36.5 gm/dL 33.5 RDWSD Latest Range: 35.0-46.0 fL 51.4 (H) RDWCV Latest Range: 10.9-14.4 % 14.8 (H) Platelets Latest Range: 145-370 x10(3)/mcL 125 (L) MPV Latest Range: 9.0-12.0 fL 9.0 Neutr Abs (ANC) Latest Range: 1.50-6.30 x10(3)/mcL 2.95 Neutrophils % Latest Range: 34.0-71.0 % 63.0 Immature Gran % Latest Range: 0.00-0.66 % 0.00 Lymphocytes % Latest Range: 19.0-53.0 % 23.7 Monocytes % Latest Range: 4.0-13.0 % 8.8 Eosinophils % Latest Range: 0.0-7.0 % 4.1 Basophils % Latest Range: 0.0-2.0 % 0.4 Madonna Gran Abs Latest Range: 0.00-0.05 x10(3)/mcL 0.00 Lymphocytes Abs Latest Range: 1.0-3.6 x10(3)/mcL 1.1 Monocyte Abs Latest Range: 0.2-1.0 x10(3)/mcL 0.4 Eosinophils Abs Latest Range: 0.0-0.5 x10(3)/mcL 0.2 Basophils Abs Latest Range: 0.0-0.2 x10(3)/mcL 0.0 PT Latest Range: 12.0-15.0 sec 14.1 INR Latest Range: 0.9-1.1 1.1 Sodium Latest Range: 135-145 mmol/L 137 Potassium Latest Range: 3.5-5.0 mmol/L 4.1 Chloride Latest Range: 98-107 mmol/L 105 CO2 Latest Range: 22-31 mmol/L 21 (L) Anion Gap Latest Range: 5-15 mmol/L 11 BUN Latest Range: 10-20 mg/dL 25 (H) Creatinine Latest Range: 0.80-1.50 mg/dL 1.02 Estimated GFR Latest Range: >=60 >60 Glucose Lvl Latest Range: 60-199 mg/dL 269 (H) Calcium Latest Range: 8.5-10.5 mg/dL 8.7 Total Protein Latest Range: 6.4-8.3 gm/dL 6.9 Albumin Latest Range: 3.2-5.2 gm/dL 3.6 Total Bilirubin Latest Range: 0.2-1.3 mg/dL 0.4 Bili, Direct Latest Range: 0.0-0.3 mg/dL 0.1 Alk Phos Latest Range: 40-120 unit/L 73 AST Latest Range: 0-39 unit/L 33 ALT Latest Range: 0-55 unit/L 28 AFP Latest Range: <=5 ng/mL 6 (H) Review of Systems Constitutional: Negative for fatigue. [...] Cirrhosis needs to continue with biannual hepatoma surveillance, with abdominal ultrasound and AFP. 2. Portal hypertension, continues on nadalol. He is a bit anemic today will restart iron supplementation. Plan to recheck iron levels again in three months. 3. Alcohol abuse, he reports that he remains sober. He will follow up with labs and imaging in six months. documented in this encounter Plan of Treatment Upcoming Encounters Date Type Department Care Team (Late st Contact Info) Description 2024 8:15 AM EST Office Visit Dermatology at [place] [address] [place] [id number] Jin Nunez MD [address] [facility], [place] [address] documented as of this encounter Procedures Procedure Name Priority Date/Time Associated Diagnosis Comments IRON AND TIBC Routine 09/27/2012 11:41 AM EDT Anemia FERRITIN Routine 09/27/2012 11:41 AM EDT Anemia documented in this encounter Results * Ferritin (09/27/2012 11:41 AM EDT) Ferritin 36 30 - 400 ng/mL CERNER MILLENNIUM Comment: Pediatric reference ranges not verified at [facility], interpret with caution. Reference ranges for females greater than 50 years of age approach values for men, i.e., 30-400 ng/mL. Blood specimen (specimen) 09/27/2012 11:41 AM EDT 09/27/2012 11:53 AM EDT Narrative Resulting Agency Comment Spec In Lab Gustabo Garza MD CHEMISTRY ORDERABLE S CERNER MILLENNIUM * (ABNORMAL) Iron and TIBC (09/27/2012 11:41 AM EDT) Iron 19(L) 45 - 160 mcg/dL CERNER MILLENNIUM TIBC 392 250 - 450 mcg/dL CERNER MILLENNIUM Iron Saturation 5(L) 20 - 50 % CERN ER MILLENNIUM Blood specimen (specimen) 09/27/2012 11:41 AM EDT 09/27/2012 11:52 AM EDT Narrative Resulting Agency Comment Spec In Lab Gustabo Garza MD CHEMISTRY ORDERABLE S CERNER MILLENNIUM documented in this encounter Visit Diagnoses Diagnosis Anemia- Primary Anemia, unspecified documented in this encounter Care Teams Signal Worker Helper Relationship Specialty Start Date End Date Laurie Wiggins MD [address] [place] [address] PCP - General 03/03/10 02/12/19 documented as of this encounter
--- OUTSIDE RECORDS SUMMARY | 2023-12-21 12:04 | XMS_ITS | Encounter Summary ---
[place] [address] Care Team Providers Care Sporting Goods Salesperson Name Role Phone Laurie Wiggins MD Primary Care Provider +1- [phone] Encounter Details Date Type Department Care Team (Late st Contact Info) Description 09/19/2012 4:15 PM EDT - 09/19/2012 4:45 PM EDT [place] [address] Boo Browne MD [facility] [place] [address] EGD, UPPER GI ENDOSCOPY (WRVU 2.09) Social [...] Sign Reading Time Taken Comments Blood Pressure 92/62 09/19/2012 4:45 PM EDT Pulse 58 09/19/2012 4:45 PM EDT Temperature - - Respiratory Rate 16 09/19/2012 4:45 PM EDT Oxygen Saturation 98% 09/19/2012 4:45 PM EDT Inhaled Oxygen Concentration - - Weight - - Height - - Body Mass Index - - documented in this encounter Discharge Instructions * Discharge Instructions* Chen Mayer RN - 09/19/2012 4:46 PM EDT You may have received medications before and/or during your procedure which effects judgement and reaction time. Do not drive, operate machinery, drink alcoholic beverages or make important decisions for 24 hours. Be careful on stairs as you may be unsteady on your feet. You may eat a regular diet as tolerated. Do not smoke if you are alone. IV site-- slight redness or tenderness is normal. You may use a warm compress. If tenderness and redness increases or foul drainage occurs, please contact your MD/ Please call [phone] before 5pm with problems, questions or concerns. After 5pm call [phone] and ask to speak with the fitness trainer division roadmaster. Discharge instructions reviewed with patient who expresses understanding. * Patient Instructions* Boo Browne MD - 09/19/2012 4:28 PM EDT Please see Recommendations in the Provation procedure report which is documented in the procedural note in E-DH. documented in this encounter Medications at Time of Discharge Medication Sig Dispensed Refills Start Date End Date multivitamin (THERAGRAN) tablet Take 1 tablet by mouth daily. buPROPion (WELLBUTRIN XL) 300 mg 24 hr tablet Take 300 mg by mouth every morning. 12/07/2012 thiamine 100 mg tablet Take 100 mg by mouth daily. 09/27/2012 spironolactone (ALDACTONE) 50 mg tablet Take 50 mg by mouth daily. 12/07/2012 pantoprazole (PROTONIX) 40 mg tablet Take 40 mg by mouth daily. 12/07/2012 nadolol (CORGARD) 20 mg tablet Take 20 mg by mouth daily. 12/07/2012 folic acid (FOLVITE) 1 mg tablet Take 1 mg by mouth daily. 12/07/2012 escitalopram (LEXAPRO) 20 mg tablet Take 10 mg by mouth daily. 12/07/2012 naproxen (NAPROSYN) 250 mg tablet Take 500 mg by mouth as needed. 12/07/2012 documented as of this encounter H&P Notes * Patel Marin MD - 09/19/2012 4:09 PM EDT Gastroenterology and Hepatology Pre-procedure History and Physical Note Procedure: EGD Indication and Brief History: Alonzo Urbina is a 57 y.o. male with a history of HCV cirrhosis with history of prior variceal banding with reported dark stools and anemia. Allergies and Meds reviewed. Patient Active Problem List Diagnoses Code ??? Cirrhosis 571.5 ??? Alcohol abuse, episodic drinking behavior 305.02 PE: Filed Vitals: 09/19/12 1533 BP: 123/75 Pulse: 62 Resp: 18 AAOx3, NAD Anicteric sclera Heart regular Lungs clear Abd soft, nt, nd Ext warm, no edema A/P: Proceed with planned endoscopic procedure for indication noted above. Risks and benefits of the procedure explained to the patient and all questions answered. Consent signed. documented in this encounter Miscellaneous Notes * Miscellaneous - Provider, Scanning - 09/19/2012 9:16 PM EDT * Miscellaneous - Provider, Scanning - 09/19/2012 5:06 PM EDT * Op Note - Boo Browne MD - 09/19/2012 4:28 PM EDT [facility] Operative Note Patient Name: Alonzo Urbina : [id number] MR#: [id number] Case Date: 09/19/2012 Surgeon: Surgeon(s) and Role: * Boo Browne MD - Primary Preoperative diagnosis: hx of gi tract bleeding Postoperative diagnosis: * No post-op diagnosis entered * Procedure(s): EGD, UPPER GI ENDOSCOPY Full procedure note is documented under the Procedure section of eD. documented in this encounter Plan of Treatment Upcoming Encounters Date Type Department Care Team (Late st Contact Info) Description 2024 8:15 AM EST Office Visit Dermatology at [place] [address] [facility] [place] [address] Jin Nunez MD [address], [place] [address] documented as of this encounter Procedures Procedure Name Priority Date/Time Associated Diagnosis Comments EGD, UPPER GI ENDOSCOPY (WRVU 2.09) 09/19/2012 4:17 PM EDT Cirrhosis of liver UPPER GI ENDOSCOPY Routine 09/19/2012 3: 51 PM EDT documented in this encounter Results * UPPER GI ENDOSCOPY (09/19/2012 3:51 PM EDT) [facility] Signature UPPER GI ENDOSCOPY [facility] Endoscopy Patient Name: Alonzo Urbina ? Procedure Date: 09/19/2012 3:51 PM ? N: [id number] ? Date of : 1955 ? Age: 57 ? Order #: [id number] ? Procedure: ? Upper GI endoscopy Indications: ? Melena, Follow-up of esophageal ? varices Providers: ? Boo Browne MD, Luis Fernando Caban ? MELY Elizondo, Joanne Wu RN Referring : ?Laurie Wiggins MD, Paty Rivera ? Ray, AN/SQQ [id number] SONAR SYSTEM JOURNEYMAN Medicines: ? Midazolam 4 mg IV, Fentanyl 150 ? micrograms IV Complications: ? No immediate complications. Procedure: ? Pre-Anesthesia Assessment: ? - Prior to the procedure, a History ? and Physical was performed, and ? patient medications, allergies and ? sensitivities were reviewed. The ? patient's tolerance of previous ? anesthesia was reviewed. ? - The risks and benefits of the ? procedure and the sedation options ? and risks were discussed with the ? patient. All questions were answered ? and informed consent was obtained. ? - ASA Grade Assessment: III - A ? patient with severe systemic disease. ? The procedure, indications, benefits, ? risks and alternatives were explained ? to the patient. Specifically ? discussed were potential ? complications including, but not ? limited to, bleeding, perforation, ? infection, missing a cancer, and ? adverse medication reactions. The ? Endoscope was introduced through the ? mouth, and advanced to the second ? part of duodenum. The patient ? tolerated the procedure well. The ? patient tolerated the procedure well. ? Findings: ? Grade I varices (flattened with insufflation) with ? stigmata of prior treatment were found in the lower ? third of the esophagus. ? The Z-line was irregular in contour and was found 36 ? cm from the incisors. ? Mild portal hypertensive gastropathy. ? Otherwise normal stomach including retroflex view of ? cardia and fundus. ? The examined duodenum was normal. ? Impression: ?- Grade I esophageal varices. ? - Mild portal hypertensive ? gastropathy. ? - Normal examined duodenum. ? - No source for bleeding identified. Recommendation: ?- Observe patient's clinical course. ? - Follow H/H. ? - F/up in GI Clinic. ? __ Boo Browne MD 09/19/2012 4:34 PM This report has been signed electronically. Number of Addenda: 0 Note Initiated On: 09/19/2012 3:51 PM PROVATION 09/19/2012 3:51 PM EDT Laurie Wiggins MD GENERAL SURGICAL O RDERABLES PROVATION documented in this encounter Visit Diagnoses Diagnosis Cirrhosis of liver Cirrhosis of liver without mention of alcohol documented in this encounter Administered Medications Inactive Administered Medications - up to 3 most recent administrations Medication Order MAR Action Action Date Dose Rate Site fentaNYL 50mcg/mL injection ONCE PRN, Starting on Tue09/19/12 at 1620, Until Tue09/19/12 at 2214, Pain, Intra-Operative (Intra-Procedure), Routine Given 09/19/2012 4:23 PM EDT 50 mcg Right Arm Given 09/19/2012 4:20 PM EDT 100 mcg Ri ght Arm midazolam (VERSED) injection ONCE PRN, Starting on Tue09/19/12 at 1620, Until 09/19/12 at 2214, Sleep, Intra-Operative (Intra-Procedure), Routine Given 09/19/2012 4:23 PM EDT 1 mg Right Arm Given 09/19/2012 4:20 PM EDT 2 mg Ri ght Arm sodium chloride 0.9% infusion 30 mL/hr, Intravenous, CONTINUOUS, Starting on Tue09/19/12 at 1600, Until Tue09/19/12 at 2214, Endoscopy (Day of Procedure) New Bag 09/19/2012 4:38 PM EDT 30 mL/hr 30 mL/hr documented in this encounter Active and Recently Administered Medications Times are shown in EDT. Continuous Medication Order 09/17/2012 09/18/2012 09/19/2012 sodium chloride 0.9% infusion (CANCELED) 30 mL/hr, Intravenous, CONTINUOUS, Starting on Tue09/19/12 at 1600, Until Tue09/19/12 at 2214, Endoscopy (Day of Procedure) 1638 (New Bag - Prov ider: Elena Lehman RN) PRN Medication Order 09/17/2012 09/18/2012 09/19/2012 fentaNYL 50mcg/mL injection (CANCELED) ONCE PRN, Starting on Tue09/19/12 at 1620, Until Tue09/19/12 at 2214, Pain, Intra-Operative (Intra-Procedure), Routine 1620 (Given - Provid er: Luis Fernando Elizondo RN - Comment: start moderate sedation)1623 (Given - Provider: Luis Fernando Elizondo RN - Comment: sleepy but awake after 1st dose and 3 minutes) midazolam (VERSED) injection (CANCELED) ONCE PRN, Starting on Tue09/19/12 at 1620, Until Tue09/19/12 at 2214, Sleep, Intra-Operative (Intra-Procedure), Routine 1620 (Given - Provid er: Luis Fernando Elizondo RN - Comment: see fentanyl same time)1623 (Given - Provider: Luis Fernando Elizondo RN - Comment: see fentanyl same time) documented in this encounter Care Teams Sporting Goods Salesperson Relationship Specialty Start Date End Date Laurie Wiggins MD [address] [place] [address] PCP - General 03/03/10 02/12/19 documented as of this encounter
--- OUTSIDE RECORDS SUMMARY | 2023-12-21 12:04 | XMS_ITS | Encounter Summary ---
[place] [address] Care Team Providers Care Billet Recorder Name Role Phone Laurie Wiggins MD Primary Care Provider +1- [phone] Reason for Visit * Reason Comments Cirrhosis Encounter Details Date Type Department Care Team (Late st Contact Info) Description 08/10/2012 1:00 PM EDT [place] [id number] Paty Pedraza APRN [facility] [place] [address] Cirrhosis of liver (Primary Dx); Chronic hepatitis C Discharge Disposition: Home Social History Tobacco Use [...] Sign Reading Time Taken Comments Blood Pressure 120/61 08/10/2012 12:47 PM EDT Pulse 58 08/10/2012 12:47 PM EDT Temperature - - Respiratory Rate - - Oxygen Saturation - - Inhaled Oxygen Concentration - - Weight 83.5 kg (184 lb) 08/10/2012 12:47 PM EDT Height 157.5 cm (5' 2) 08/10/2012 12:47 PM EDT Body Mass Index 33.65 08/10/2012 12:47 PM EDT documented in this encounter Progress Notes * Paty Pedraza APRN - 08/10/2012 1:18 PM EDT Mr. Urbina is a 57 year old male with cirrhosis secondary to hepatitis C and etoh. He was diagnosed with Hepatitis C several years ago and was placed on Interferon and Ribavirin for one month. 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 He had been drinking again and this time apparently had seizures. Alonzo returns today and is feeling well, he reports that he has not been drinking alcohol, he has been going to counseling, he is starting a new relationship. He further denies any gi tract bleeding,he continues to take a small amount of aldactone for peripheral edema. He thinks he had an imaging s tudy last spring but is not sure. No recent labs. Alonzo reports that in March he started to [...] bleeding, no swelling, he has lost weight. Alonzo returns today specifically to discuss an insurance policy he found when he cleaning out his house as he is preparing to move. 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 I have explained that as an MULE DEVELOPER my opinion is unlikely to be enough to help him with this case. Uponreviewing the paperwork it seems that they are linking his encephalopathy with his HCV treatment and considering the hepatitis C as a pre- existing disease. I can request that one of my physician colleagues review the paperwork. He reports that he feels well without complaints referable to his liver. He remains sober and will follow up for his routine issues at his appointment over the summer. documented in this encounter Plan of Treatment Upcoming Encounters Date Type Department Care Team (Late st Contact Info) Description 2024 8:15 AM EST Office Visit Dermatology at [place] [address] [facility] [place] [address] Jin Nunez MD [address], [address] [place] [address] documented as of this encounter Visit Diagnoses Diagnosis Cirrhosis of liver- Primary Cirrhosis of liver without mention of alcohol Chronic hepatitis C Chronic hepatitis C without mention of hepatic coma documented in this encounter Care Teams Billet Recorder Relationship Specialty Start Date End Date Laurie Wiggins MD [address] [place] [address] PCP - General 03/03/10 02/12/19 documented as of this encounter
--- OUTSIDE RECORDS SUMMARY | 2023-12-21 12:04 | XMS_ITS | Encounter Summary ---
[place] [address] Care Team Providers Care Crisis Worker Name Role Phone Laurie Wiggins MD Primary Care Provider +1- [phone] Encounter Details Date Type Department Care Team (Latest Contact Info) Description 09/19/2012 2:19 PM EDT - 09/19/2012 5:25 PM EDT Hospital Encounter [place] [address] Berna Shabazz MD [facility] [place] [address] Gustabo Garza MD [facility] [place] [address] Boo Browne MD [facility] [place] [address] Discharge Disposition: Home Social History Tobacco Use [...] occurs, please contact your MD/ Please call [phone] before 5pm with problems, questions or concerns. After 5pm call [phone] and ask to speak with the waste machine operator concrete craftsman. Discharge instructions reviewed with patient who expresses [...] Browne MD - 09/19/2012 4:28 PM EDT [facility] [place] Patient Name: Alonzo Urbina : [id number] MR#: [id number] Case Date: 09/19/2012 Surgeon: Surgeon(s) and Role: * Boo Browne MD - Primary Preoperative diagnosis: hx of gi tract bleeding Postoperative diagnosis: * No post-op diagnosis entered * Procedure(s): EGD, UPPER GI ENDOSCOPY Full procedure note is documented under the Procedure section of eDH. documented in this encounter Plan of Treatment Upcoming Encounters Date Type Department Care Team (Late st Contact Info) Description 2024 8:15 AM EST Office Visit Dermatology at [place] [address] [place] [address] Jin Nunez MD [address] [place] [address] documented as of this encounter Procedures Procedure Name Priority Date/Time Associated Diagnosis Comments EGD, UPPER GI ENDOSCOPY (WRVU 2.09) 09/19/2012 4:17 PM EDT Cirrhosis of liver UPPER GI ENDOSCOPY Routine 09/19/2012 3: 51 PM EDT documented in this encounter Results * UPPER GI ENDOSCOPY (09/19/2012 3:51 PM EDT) UPPER GI ENDOSCOPY [facility] Endoscopy Patient Name: Alonzo Urbina ? Procedure Date: 09/19/2012 3:51 PM ? Date of : 1955 ? Age: 57 ? Order #: [id number] ? Procedure: ? Upper GI endoscopy Indications: ? Melena, Follow-up of esophageal ? varices Providers: ? Boo Browne MD, Luis Fernando Caban ? , RN, Joanne Wu RN Referring : ?Laurie Wiggins MD, Paty Rivera ? Ray, PLATE INSPECTOR Medicines: ? Midazolam 4 mg IV, Fentanyl [...] PROVATION documented in this encounter Visit Diagnoses Not on filedocumented in this encounter Administered Medications Inactive Administered Medications - up to 3 most recent administrations Medication Order MAR Action Action Date Dose Rate Site sodium chloride 0.9% infusion 30 mL/hr, Intravenous, [...] Elizondo RN - Comment: see fentanyl same time)162 (Given - Provider: Luis Fernando Elizondo RN - Comment: see fentanyl same time) documented in this encounter Care Teams Crisis Worker Relationship Specialty Start Date End Date Laurie Wiggins MD [address] [place] [address] PCP - General 03/03/10 02/12/19 documented as of this encounter
--- OUTSIDE RECORDS SUMMARY | 2023-12-21 12:04 | XMS_ITS | Encounter Summary ---
[place] [address] Care Team Providers Care Academic Records Specialist Name Role Phone Laurie Wiggins MD Primary Care Provider [phone]- [phone] Encounter Details Date Type Department Care Team (Late st Contact Info) Description 10/02/2012 Telephone [place] [phone] Jacinta Nunes RN Social History Tobacco Use Types Packs/Day [...] encounter Miscellaneous Notes * Telephone Encounter - Jacinta Nunes RN - 10/02/2012 8:49 AM EDT Call from patient inquiring about the need for prescription liquid iron supplementation. He uses [facility] in [place]. Lab results from 09/27 are posted in [facility]. Patient is also inquiring if he will need another procedure to address GI bleeding. Will forward to Sherwin Pedraza NP documented in this encounter Plan of Treatment Upcoming Encounters Date Type Department Care Team (Late st Contact Info) Description 2024 8:15 AM EST Office Visit Dermatology at [address] [phone] Jin Nunez MD [address], [place] [address] documented as of this encounter Visit Diagnoses Not on filedocumented in this encounter Care Teams Academic Records Specialist Relationship Specialty Start Date End Date Laurie Wiggins MD [address] [place] [address] PCP - General 03/03/10 02/12/19 documented as of this encounter
--- OUTSIDE RECORDS SUMMARY | 2023-12-21 12:04 | XMS_ITS | Encounter Summary ---
[place] [address] Care Team Providers Care Pond Sawyer Name Role Phone Laurie Wiggins MD Primary Care Provider [phone]- [phone] Encounter Details Date Type Department Care Team (Late st Contact Info) Description 01/29/2011 9:00 AM EDT - 01/29/2011 11:59 PM EDT Hospital Encounter [place] [address] Cirrhosis Social History Tobacco Use Types Packs/Day Years Used Date Smoking Tobacco: Never Smokeless Tobacco: Never Alcohol Use Standard Drinks/Week Comments Not Asked 0 (1 standard drink = 0.6 oz pur e alcohol) Sex and Gender Information Value Date Recorded Sex Assigned at Not on file Gender Identity Not on file Sexual Orientation Not on file documented as of this encounter Medications at Time of Discharge Medication Sig Dispensed Refills Start Date End Date methadone (DOLOPHINE) 10 mg tablet Take 10 mg by mouth 4 times daily. 07/29/2010 04/17/2012 OXYcodone (OXY-IR) 30 mg immediate release tablet Take 30 mg by mouth daily. 12/15/2011 methadone (DOLOPHINE) 10 mg tablet 06/25/2010 04/17/2012 nadolol (CORGARD) 40 mg tablet 40 MG = 1 Tablet(s), PO, as directed 06/25/2010 04/17/2012 OXYcodone (OXY-IR) 30 mg immediate release tablet 06/25/201008/2011 omeprazole (PRILOSEC) 40 mg capsule 40 MG = 1 Capsule(s), PO, Twice daily 06/25/2010 04/17/2012 FERROUS SULFATE ORAL 06/25/2010 013 documented as of this encounter Plan of Treatment Upcoming Encounters Date Type Department Care Team (Late st Contact Info) Description 2024 8:15 AM EST Office Visit Dermatology at [place] [address] [place] [address] Jin Nunez MD [address], [place] [address] documented as of this encounter Procedures Procedure Name Priority Date/Time Associated Diagnosis Comments US ABDOMEN COMPLETE Routine 01/29/2011 1 0:06 AM EDT Cirrhosis documented in this encounter Results * US abdomen complete (01/29/2011 10:06 AM EDT) Anatomical Region Laterality Modality Abdomen, Vascular Ultrasound 01/29/2011 10:0 6 AM EDT Narrative 01/29/2011 10:17 AM EDT ?Abdominal Report ? (Signed Final 01/29/2011 10:17 am) Patient Info ID: ? [id number] ? : ??[birth year] (55 yrs) Name: ? ALMA Denise CARBALLO ? Visit Date: 01/29/2011 09:56 am Performed By Performed By: ?MANDEEP Raza ??Janie Associate: ? Elle LESTER, Leonardo Junior Attending: ? Nicolasa LESTER, Dahlia Junior Referred By: ? AKIKO Morris APRN Accession#: ?[id number] Service(s) Provided [facility] - Abdominal Complete Survey - [id number] ? [id number] Indications Cirrhosis, screen for HCC ----- Liver ----- Right Lobe Length: ?? 15.21 ??cm Echogenicity/Echotexture: ?? Coarse parenchyma with ? nodularity, consistent with cirrhosis. Comment: ?probable recanalized periumbilical vein, limited ? visualization Gallbladder Cholelithiasis: ?No songraphic evidence Wall Thickness: ?4.6 mm Focal Tenderness: ?No positive Gonsalez's sign Comment: ?Adenomyomatosis ??Abnormal GB wall-thickened, ? neg Gonsalez's, no ascites. Single echogenic focus, ? adherent stone vs cholesterol polyp Biliary Tract Intrahepatic Ducts: ?? Normal Extrahepatic Ducts: ?? Normal Common Duct Size: ? 4.6 ? mm -------- Pancreas -------- Head: ? Not visualized due to overlying bowel Tail: ? Not visualized due to overlying bowel Body: ? Not visualized due to overlying bowel ------ Spleen ------ Size (cm) ?L: ??20.48 ? AP: ??17.35 ? TV: ??5.79 Vol (ml): ?1077.2 Comment: ?Splenomegaly- moderate Right Kidney Size (cm) ?L: ??11.05 Cortical Thickness: ?Normal Cortical Echogenicity: ?? Normal Hydronephrosis: ?No sonographic evidence Comment: ?Limited visualization Left Kidney Size (cm) ?L: ??12.6 Cortical Thickness: ?Normal Cortical Echogenicity: ?? Normal Hydronephrosis: ?No sonographic evidence ----- Aorta ----- Comment: ?Poorly visualized ??due to overlying bowel gas --- IVC --- Normal in caliber, where visualized Impression Ultrasound - Abdomen Complete - Summary Abnormal abdominal ultrasound- see discussion below Pt has known cirrhosis, recanalized umbilical vein, no evid of hepatic tumor. Splenomegaly. Abnormal Gall bladder - see description above. Discussed with Sherwin Pedraza APRN I ??viewed the images and agree with the above interpretation. Thank you for allowing us to participate in the care of ALMA CARBALLO. Please do not hesitate to call if you have any questions. ? Dahlia Baldwin MD Electronically Signed Final Report ?? 01/29/2011 10:17 am Film and interpretation reviewed by the attending Procedure Note Dahlia Baldwin MD - 01/29/2011 Abdominal Report (Signed Final 01/29/2011 10:17 am) Patient Info ID: [id number] : [birth year] (55 yrs) Name: ALMA CARBALLO Visit Date: 01/29/2011 09:56 am Performed By Performed By: MANDEEP Raza Associate: Elle LESTER, Leonardo Junior Attending: Dahlia Baldwin MD Referred By: AKIKO Morris APRN Service(s) Provided [facility] - Abdominal Complete Survey - [id number] Indications Cirrhosis, screen for HCC ----- Liver ----- Right Lobe Length: 15.21 cm Echogenicity/Echotexture: Coarse parenchyma with nodularity, consistent with cirrhosis. Comment: probable recanalized periumbilical vein, limited visualization Gallbladder Cholelithiasis: No songraphic evidence Wall Thickness: 4.6 mm Focal Tenderness: No positive Gonsalez's sign Comment: Adenomyomatosis Abnormal GB wall-thickened, neg Gonsalez's, no ascites. Single echogenic focus, adherent stone vs cholesterol polyp Biliary Tract Intrahepatic Ducts: Normal Extrahepatic Ducts: Normal Common Duct Size: 4.6 mm -------- Pancreas -------- Head: Not visualized due to overlying bowel Tail: Not visualized due to overlying bowel Body: Not visualized due to overlying bowel ------ Spleen ------ Size (cm) L: 20.48 AP: 17.35 TV: 5.79 Vol (ml): 1077.2 Comment: Splenomegaly- moderate Right Kidney Size (cm) L: 11.05 Cortical Thickness: Normal Cortical Echogenicity: Normal Hydronephrosis: No sonographic evidence Comment: Limited visualization Left Kidney Size (cm) L: 12.6 Cortical Thickness: Normal Cortical Echogenicity: Normal Hydronephrosis: No sonographic evidence ----- Aorta ----- Comment: Poorly visualized due to overlying bowel gas --- IVC --- Normal in caliber, where visualized Impression Ultrasound - Abdomen Complete - Summary Abnormal abdominal ultrasound- see discussion below Pt has known cirrhosis, recanalized umbilical vein, no evid of hepatic tumor. Splenomegaly. Abnormal Gall bladder - see description above. Discussed with Sherwin Pedraza APRN I viewed the images and agree with the above interpretation. Thank you for allowing us to participate in the care of ALMA CARBALLO. Please do not hesitate to call if you have any questions. Dahlia Baldwin MD Electronically Signed Final Report 01/29/2011 10:17 am Film and interpretation reviewed by the attending Gustabo Garza MD IMG US GEN ORDERABL ES documented in this encounter Visit Diagnoses Diagnosis Cirrhosis Cirrhosis of liver without mention of alcohol documented in this encounter Care Teams Pond Sawyer Relationship Specialty Start Date End Date Laurie Wiggins MD [address] [place] [address] PCP - General 03/03/10 02/12/19 documented as of this encounter
--- OUTSIDE RECORDS SUMMARY | 2023-12-21 12:04 | XMS_ITS | Encounter Summary ---
[place] [address] Care Team Providers Care [employer] Thread Winder Name Role Phone Laurie Wiggins MD Primary Care Provider [phone]- [phone] Reason for Visit * Reason Comments GI Problem Encounter Details Date Type Department Care Team (Late st Contact Info) Description 12/15/2011 11:00 AM EDT [place] [address] Paty Pedraza APRN [facility] [place] [address] Cirrhosis (Primary Dx) Discharge Disposition: Home Social [...] Sign Reading Time Taken Comments Blood Pressure 128/73 12/15/2011 11:07 AM EDT Pulse 76 12/15/2011 11:07 AM EDT Temperature - - Respiratory Rate - - Oxygen Saturation - - Inhaled Oxygen Concentration - - Weight 86.2 kg (190 lb) 12/15/2011 11:07 AM EDT Height 160 cm (5' 3) 12/15/2011 11:07 AM EDT Body Mass Index 33.66 12/15/2011 11:07 AM EDT documented in this encounter Progress Notes * Paty Pedraza APRN - 12/15/2011 11:15 AM EDT Subjective: Patient ID: Alma Carballo is a 56 y.o. male. GI Problem Primary symptoms do not include fever, abdominal pain or nausea. Fatigue: fatigue is improving withincreased activity. Mr. Carballo is a 56 year old [...] variceal [place] ( [place] [facility]and was banded in December 2007 (6 bands), January 2008 ( 4 bands) and April of 2008 (3 bands). 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 No recent labs. 03/20/2010 AFP 5.6, wbc 3.1, hg 10, hct 30.5, plt 132, INR 1.04, creat 0.66, tprot 6.7, alb 3.3, ast 75, alt 58, tbili 0.8, ap 70 07/27/2010 Wbc 3.7, hg 13.4, plt 114 Findings: The Z-line was slightly irregular in contour and was found 42 cm from the incisors. There was mucosal scarring from prior band ligation but no significant varices.Patchy mild inflammation characterized by striped erythema was found in the gastric antrum. This did not have the appearance of GAVE as there were no vascular ectasias present.Otherwise normal stomach including retroflex view of cardia and fundus. There were no gastric varices visualized.The examined duodenum was normal. Impression: - Mucosal scarring in esophagus from prior EBL but no significant varices are present.. - Antral gastritis in striped pattern but no evidence for GAVE. - Normal examined duodenum. Review of Systems Constitutional: Negative for fever. Fatigue: fatigue is improving with increased activity. Respiratory: Negative for cough and shortness of breath. Gastrointestinal: Negative for nausea, abdominal pain and blood in stool. Psychiatric/Behavioral: Negative for suicidal ideas. Objective: Physical Exam Constitutional: He is oriented to person, place, and time. He appears well- developed and well-nourished. HENT: Head: Atraumatic. Cardiovascular: Normal rate, regular rhythm and normal heart sounds. Pulmonary/Chest: He has no wheezes. Abdominal: Soft. He exhibits no ascites. There is hepatomegaly. Neurological: He is alert and oriented to person, place, and time. Skin: Skin is warm and dry. Psychiatric: He has a normal mood and affect. His behavior is normal. Assessment and Plan: 1. Cirrhosis needs to continue with biannual hepatoma surveillance. Will schedule abdominal ultrasound and labs prior to his next appointment, will attempt to get a copy of imaging he had performed locally. We discussed the importance of tumor surveillance. We have agreed that he will get labs, and imaging on the same day as his next appointment in April. 2. Portal hypertension, at this time I think that all of his episodes of bleeding are brought on bybinge alcohol abuse. Will check a cbc today if his hg is stable no further intervention. He reportsthat he has been sober for almost six months and has not had episodes of bleeding during this time. 3. Depression, he is now seeing a counselor regularly. 4. Alcohol abuse, he reports that he has been sober since his last visit. Results for ALMA CARBALLO ( ) as of 12/15/2011 14:50 Ref. Range 12/15/2011 11:42 WBC Latest Range: 4.0-10.0 x10(3)/mcL 5.8 RBC Latest Range: 4.63-6.08 x10(6)/mcL 4.16 (L) Hemoglobin Latest Range: 13.7-17.5 gm/dL 13.8 Hematocrit Latest Range: 40.0-51.0 % 39.8 (L) MCV Latest Range: 79.0-92.0 fL 95.7 (H) MCH Latest Range: 25.6-32.2 pg 33.2 (H) MCHC Latest Range: 32.0-36.5 gm/dL 34.7 RDWSD Latest Range: 35.0-46.0 fL 50.0 (H) RDWCV Latest Range: 10.9-14.4 % 14.4 Platelets Latest Range: 145-370 x10(3)/mcL 113 (L) MPV Latest Range: 9.0-12.0 fL 9.0 Neutr Abs (ANC) Latest Range: 1.50-6.30 x10(3)/mcL 3.70 Neutrophils % Latest Range: 34.0-71.0 % 64.2 Immature Gran % Latest Range: 0.00-0.66 % 0.20 Lymphocytes % Latest Range: 19.0-53.0 % 24.3 Monocytes % Latest Range: 4.0-13.0 % 9.4 Eosinophils % Latest Range: 0.0-7.0 % 1.6 Basophils % Latest Range: 0.0-2.0 % 0.3 Madonna Gran Abs Latest Range: 0.00-0.05 x10(3)/mcL 0.01 Lymphocytes Abs Latest Range: 1.0-3.6 x10(3)/mcL 1.4 Monocyte Abs Latest Range: 0.2-1.0 x10(3)/mcL 0.5 Eosinophils Abs Latest Range: 0.0-0.5 x10(3)/mcL 0.1 Basophils Abs Latest Range: 0.0-0.2 x10(3)/mcL 0.0 Total Bilirubin Latest Range: 0.2-1.3 mg/dL 1.0 Bili, Direct Latest Range: 0.0-0.3 mg/dL 0.3 Alk Phos Latest Range: 40-120 unit/L 82 AST Latest Range: 0-39 unit/L 69 (H) ALT Latest Range: 0-55 unit/L 46 PT Latest Range: 11.9-14.7 sec 14.5 INR Latest Range: 0.9-1.1 1.1 Sodium Latest Range: 135-145 mmol/L 139 Potassium Latest Range: 3.5-5.0 mmol/L 4.2 Chloride Latest Range: 98-107 mmol/L 104 CO2 Latest Range: 22-31 mmol/L 29 Anion Gap Latest Range: 5-15 mmol/L 6 BUN Latest Range: 10-20 mg/dL 14 Creatinine Latest Range: 0.80-1.50 mg/dL 0.60 (L) Estimated GFR Latest Range: >=60 >60 Glucose Lvl Latest Range: 60-199 mg/dL 74 Calcium Latest Range: 8.5-10.5 mg/dL 9.3 Total Protein Latest Range: 6.4-8.3 gm/dL 8.1 Albumin Latest Range: 3.2-5.2 gm/dL 4.0 documented in this encounter Plan of Treatment Upcoming Encounters Date Type Department Care Team (Late st Contact Info) Description 2024 8:15 AM EST Office Visit Dermatology [place] [address] [place] [address] Jin Nunez MD [address], [place] [address] documented as of this encounter Procedures Procedure Name Priority Date/Time Associated Diagnosis Comments DIFFERENTIAL, AUTOMATED Routine 12/15/2011 11:42 AM EDT AFP TUMOR MARKER Routine 12/15/2011 11:4 2 AM EDT Cirrhosis PROTHROMBIN TIME Routine 12/15/2011 11:4 2 AM EDT Cirrhosis CBC (WITH DIFF) Routine 12/15/2011 11:42 AM EDT Cirrhosis COMPREHENSIVE METABOLIC PANEL Routine 12/15/2011 11:42 AM EDT Cirrhosis documented in this encounter Results * (ABNORMAL) AFP tumor marker (09/27/2012 8:29 AM EDT) Alpha Fetoprotein 6(H) <=5 ng/mL [facility] Comment: Note new Reference Range as of 12-20-2011. Reference: Immulite 2000 AFP package insert ([id number], 2009-01-02) Blood specimen (specimen) 09/27/2012 8:29 AM EDT 09/27/2012 12:28 PM EDT Narrative Resulting Agency Comment Spec In Lab Clemencia Hernandez MD [facility]STRY ORDERABLE S [facility] * Prothrombin Time (09/27/2012 8:29 AM EDT) Prothrombin Time 14.1 12.0 - 15.0 sec THEO ARCOS Comment: [facility] Transfusion Committee Guidelines: INR less than 2.0, PTT less than OR equal to 43.5 seconds, or Fibrinogen greater than or equal to 100 mg/dl indicate adequate procoagulant activity for hemostasis in patients without underlying bleeding disorders. International Normalization Ratio 1.1 0.9 - 1.1 [facility] Blood specimen (specimen) 09/27/2012 8:29 AM EDT 09/27/2012 8:33 AM EDT Narrative Resulting Agency Comment Spec In Lab Clemencia Hernandez MD HEMATOLOGY ORDERABL ES CERNER MILLENNIUM * (ABNORMAL) Comprehensive metabolic panel (non-fasting) (09/27/2012 8:29 AM EDT) Glucose 269(H) 60 - 199 mg/dL CERNER MILLENNIUM Comment:Diabetes: >=200 mg/d L plus symptoms Blood Urea Nitrogen 25(H) 10 - 20 mg/dL CERNER MILLENNIUM Creatinine 1.02 0.80 - 1.50 mg/dL CERNER MILLENNIUM Comment: Please note that the pediatric reference intervals supplied above were not validated [place] [facility] Results from pediatric patients should be interpreted in conjunction to the patient's age, height and muscle mass. Sodium 137 135 - 145 mmol/L CERNER MILLENNIUM Potassium 4.1 3.5 - 5.0 mmol/L CERNER MILLENNIUM Comment: Please note: ??Patients with WBC >100,000 may have falsely elevated Potassium levels. ??For accurate Potassium quantification in these patients send serum separator tube (gold top) for subsequent determinations. ??Contact the Clinical Chemistry Laboratory if there are any questions. Chloride 105 98 - 107 mmol/L CERNER MILLENNIUM Carbon Dioxide 21(L) 22 - 31 mmol/L CERNER MILLENNIUM Anion Gap 11 5 - 15 mmol/L CERNER MILLENNIUM Calcium 8.7 8.5 - 10.5 mg/dL CERNER MILLENNIUM Protein, Total 6.9 6.4 - 8.3 gm/dL CERNER MILLENNIUM Albumin 3.6 3.2 - 5.2 gm/dL CERNER MILLENNIUM Aspartate Aminotransferase 33 0 - 39 unit/L CERNER MILLENNIUM Alanine Aminotransferase 28 0 - 55 unit/L CERNER MILLENNIUM Alkaline Phosphatase 73 40 - 120 unit/L CERNER MILLENNIUM Bilirubin, Total 0.4 0.2 - 1.3 mg/dL CERNER MILLENNIUM Bilirubin, Direct 0.1 0.0 - 0.3 mg/dL CERNER MILLENNIUM Est [...] internet browser. http://www.nkdep.nih.gov/lab-evaluation.shtml http://www.kidney.org/professionals/ Blood specimen (specimen) 09/27/2012 8:29 AM EDT 09/27/2012 8:33 AM EDT Narrative Resulting Agency Comment Spec In Lab Clemencia Hernandez MD [facility] S [facility] * (ABNORMAL) CBC (with Diff) (09/27/2012 8:29 AM EDT) White Blood Cell 4.7 4.0 - 10.0 x10(3)/mc L CERNER MILLENNIUM Red Blood Cell 3.39(L) 4.63 - 6.08 x10(6)/mc L CERNER MILLENNIUM Hemoglobin 10.8(L) 13.7 - 17.5 gm/dL CERNER MILLENNIUM Hematocrit 32.2(L) 40.0 - 51.0 % CERNER MILLENNIUM Mean Cell Volume 95.0(H) 79.0 - 92.0 fL CERNER MILLENNIUM Mean Cell Hemoglobin 31.9 25.6 - 32.2 pg CERNER MILLENNIUM Mean Cell Hemoglobin Concentration 33.5 32.0 - 36.5 gm/dL CERNER MILLENNIUM Platelet 125(L) 145 - 370 x10(3)/mc L CERNER MILLENNIUM RDW Standard Deviation 51.4(H) 35.0 - 46.0 fL CERNER MILLENNIUM RDW coefficient of variation 14.8(H) 10.9 - 14.4 % CERNER MILLENNIUM Mean Platelet Volume 9.0 9.0 - 12.0 fL CERNER MILLENNIUM Blood specimen (specimen) 09/27/2012 8:29 AM EDT 09/27/2012 8:33 AM EDT Narrative Resulting Agency Comment Spec In Lab Clemencia Hernandez MD [facility] * abdomen complete (04/17/2012 10:57 AM EST) Anatomical Region Laterality Modality Abdomen, Vascular Ultrasound 04/17/2012 10:5 7 AM EST Narrative 04/17/2012 11:44 AM EST ?Abdominal ? (Signed Final 04/17/2012 11:44 am) Patient Info ID: ? [id number] ? : ??[birth year] (56 yrs) Name: ? ALMA CARBALLO ? Visit Date: 04/17/2012 10:49 am Performed By Performed By: ?Any Pike Associate: ? Torres Aguilar MD Attending: ? Blake Case MD Referred By: ? CLEMENCIA HERNANDEZ MD Service(s) Provided [facility] - Abdominal Complete Survey - [id number] ? [id number] Indications Cirrhosis ----- Liver ----- Right Lobe Length: ?? 13.7 ?? cm Echogenicity/Echotexture: ?? Coarse parenchyma Comment: ?Recanalized periumbilical vein. Smooth liver ? capsule. Gallbladder Cholelithiasis: ?No stones visualized Wall Thickness: ?2 Biliary Tract Intrahepatic Ducts: ?? Normal Extrahepatic Ducts: ?? Normal Common Duct Size: ? 1 ? mm -------- Pancreas -------- Head: ? Not visualized due to overlying bowel Tail: ? Not visualized due to overlying bowel Body: ? Not visualized due to overlying bowel ------ Spleen ------ Size (cm) ?L: ??14 Comment: ?Normal appearance Right Kidney Size (cm) ?L: ??10.3 Hydronephrosis: ?No sonographic evidence Comment: ?Limited visualization due to overlying bowel gas. Left Kidney Size (cm) ?L: ??11.6 Cortical Thickness: ?Normal Cortical Echogenicity: ?? Normal Hydronephrosis: ?No sonographic evidence ----- Aorta ----- Comment: ?Normal in caliber mid and distal aorta. ??Proximal ? aorta not visualized due to overlying bowel gas. --- IVC --- Normal in caliber, where visualized Fluid Collections No ascites seen. Impression Ultrasound - Abdomen Complete - Summary 1. Cirrhotic appearance of the liver with recanalized periumbilical vein and mild splenomegaly. No focal hepatic lesions identified. Ascites not present. 2. Limited evaluation of both pancreas and right kidney due to overlying bowel gas. 2. Remainder of the study within normal limits. I ??viewed the images and agree with the above interpretation. Thank you for allowing us to participate in the care of ALMA CARBALLO. Please do not hesitate to call if you have any questions. ? Blake Case MD Electronically Signed Final Report ?? 04/17/2012 11:44 am Film and interpretation reviewed by the attending Procedure Note Blake Case MD - 04/17/2012 Abdominal (Signed Final 04/17/2012 11:44 am) Patient Info ID: [id number] : [birth year] (56 yrs) Name: ALMA CARBALLO Visit Date: 04/17/2012 10:49 am Performed By Performed By: Any Pike Associate: Lauren LESTER, Torres Junior Attending: Blake Case MD Referred By: CLEMENCIA HERNANDEZ MD Service(s) Provided [facility] - Abdominal Complete Survey - [id number] Indications Cirrhosis ----- Liver ----- Right Lobe Length: 13.7 cm Echogenicity/Echotexture: Coarse parenchyma Comment: Recanalized periumbilical vein. Smooth liver capsule. Gallbladder Cholelithiasis: No stones visualized Wall Thickness: 2 Biliary Tract Intrahepatic Ducts: Normal Extrahepatic Ducts: Normal Common Duct Size: 1 mm -------- Pancreas -------- Head: Not visualized due to overlying bowel Tail: Not visualized due to overlying bowel Body: Not visualized due to overlying bowel ------ Spleen ------ Size (cm) L: 14 Comment: Normal appearance Right Kidney Size (cm) L: 10.3 Hydronephrosis: No sonographic evidence Comment: Limited visualization due to overlying bowel gas. Left Kidney Size (cm) L: 11.6 Cortical Thickness: Normal Cortical Echogenicity: Normal Hydronephrosis: No sonographic evidence ----- Aorta ----- Comment: Normal in caliber mid and distal aorta. Proximal aorta not visualized due to overlying bowel gas. --- IVC --- Normal in caliber, where visualized Fluid Collections No ascites seen. Impression Ultrasound - Abdomen Complete - Summary 1. Cirrhotic appearance of the liver with recanalized periumbilical vein and mild splenomegaly. No focal hepatic lesions identified. Ascites not present. 2. Limited evaluation of both pancreas and right kidney due to overlying bowel gas. 2. Remainder of the study within normal limits. I viewed the images and agree with the above interpretation. Thank you for allowing us to participate in the care of ALMA CARBALLO. Please do not hesitate to call if you have any questions. Blake Case MD Electronically Signed Final Report 04/17/2012 11:44 am Film and interpretation reviewed by the attending Clemencia Hernandez MD IMG US GEN ORDERABL ES * (ABNORMAL) AFP tumor marker (04/17/2012 8:52 AM EST) Alpha Fetoprotein 6(H) <=5 ng/mL CERNER MILLENNIUM Comment: Note new Reference Range as of 12-20-2011. Reference: Immulite 2000 AFP package insert ([id number], 2009-01-02) Blood specimen (specimen) 04/17/2012 8:52 AM EST 04/17/2012 12:01 PM EST Narrative Resulting Agency Comment Spec In Lab Clemencia Hernandez MD CHEMISTRY ORDERABLE S Performing Organization Address [facility] Phone Number [facility] * Prothrombin Time (04/17/2012 8:52 AM EST) Prothrombin Time 14.5 11.9 - 14.7 sec CERNER MILLENNIUM Comment: [facility] Transfusion Committee Guidelines: INR less than [...] Narrative Resulting Agency Comment Spec In Lab Clemencia Hernandez MD HEMATOLOGY ORDERABL ES Performing Organization Address [facility] Phone Number [facility] * (ABNORMAL) Comprehensive metabolic panel (non-fasting) (04/17/2012 8:52 AM EST) Glucose 118 60 - 199 mg/dL CERNER MILLENNIUM Comment:Diabetes: >=200 mg/d L plus symptoms Blood Urea Nitrogen 34(H) 10 - 20 mg/dL CERNER MILLENNIUM Creatinine 1.21 0.80 - 1.50 mg/dL CERNER MILLENNIUM Comment: Please note that the pediatric reference intervals supplied above were not validated [place] [facility] Results from pediatric patients should be interpreted [...] Narrative Resulting Agency Comment Spec In Lab Clemencia Hernandez MD CHEMISTRY ORDERABLE S CERNER MILLENNIUM * [...] Narrative Resulting Agency Comment Spec In Lab Clemencia Hernandez MD HEMATOLOGY ORDERABL ES CERNER MILLENNIUM * DIFFERENTIAL, AUTOMATED (12/15/2011 11:42 AM EDT) Neutrophil % 64.2 34.0 - 71.0 % CERNER MILLENNIUM Neutrophil Absolute 3.70 1.50 - 6.30 x10(3)/mcL CERNER MILLENNIUM Lymph % 24.3 19.0 - 53.0 % CERNER MILLENNIUM Lymphocytes Abs 1.4 1.0 - 3.6 x10(3)/mcL CERNER MILLENNIUM Monocyte % 9.4 4.0 - 13.0 % CERNER MILLENNIUM Monocyte Abs 0.5 0.2 - 1.0 x10(3)/mcL CERNER MILLENNIUM Eos % 1.6 0.0 - 7.0 % CERNER MILLENNIUM Eosinophils Abs 0.1 0.0 - 0.5 x10(3)/mcL CERNER MILLENNIUM Basophil % 0.3 0.0 - 2.0 % CERNER MILLENNIUM Baso Absolute 0.0 0.0 - 0.2 x10(3)/mcL CERNER MILLENNIUM Immature Gran % 0.20 0.00 - 0.66 % CERNER MILLENNIUM Comment: Immature granulocytes(IG's)percentage and absolute count will include metamyelocytes, myelocytes, and promyelocytes. Blood smears from CBCs yielding IG's will be scanned manually for concordance. If this scan disagrees with the automated IG or if promyelocytes are noted, a manual differential will be performed. Immature Gran Absolute 0.01 0.00 - 0.05 x10(3)/mcL CERNER MILLENNIUM Blood specimen (specimen) 12/15/2011 11:42 AM EDT 12/15/2011 11:53 AM EDT Clemencia Hernandez MD HEMATOLOGY ORDERABL ES Performing Organization Address [facility] Co de Phone Number [facility] CORINEENNIUM * AFP tumor marker (12/15/2011 11:42 AM EDT) Alpha Fetoprotein 9 <=19 ng/mL [facility] MILLENNIUM Blood specimen (specimen) 12/15/2011 11:42 AM EDT 12/15/2011 2:26 PM EDT Narrative Resulting Agency Comment Spec In Lab Clemencia Hernandez MD CHEMISTRY ORDERABLE S Performing Organization Address [facility] Co de Phone Number [facility] CORINEENNIUM * Prothrombin Time (12/15/2011 11:42 AM EDT) Pathologist [facility] Prothrombin Time 14.5 11.9 - 14.7 sec CERNER MILLENNIUM Comment: [facility] Transfusion Committee Guidelines: INR less than 2.0, PTT less than OR equal to 43.5 seconds, or Fibrinogen greater than or equal to 100 mg/dl indicate adequate procoagulant activity for hemostasis in patients without underlying bleeding disorders. International Normalization Ratio 1.1 0.9 - 1.1 [facility] MILLENNIUM Blood specimen (specimen) 12/15/2011 11:42 AM EDT 12/15/2011 11:53 AM EDT Narrative Resulting Agency Comment Spec In Lab Clemencia Hernandez MD HEMATOLOGY ORDERABL ES Performing Organization Address [facility] de Phone Number [facility] * (ABNORMAL) Comprehensive metabolic panel (non-fasting) (12/15/2011 11:42 AM EDT) Glucose 74 60 - 199 mg/dL [facility] MILLENNIUM Comment:Diabetes: >=200 mg/d L plus symptoms Blood Urea Nitrogen 14 10 - 20 mg/dL [facility] MILL[facility]UM Creatinine 0.60(L) 0.80 - 1.50 mg/dL CERNER MILLENNIUM Comment: Please note that the pediatric reference intervals supplied above were not validated at [facility] Results from pediatric patients should be interpreted in conjunction to the patient's age, height and muscle mass. Sodium 139 135 - 145 mmol/L CERNER MILLENNIUM Potassium 4.2 3.5 - 5.0 mmol/L CERNER MILLENNIUM Comment: Please note: ??Patients with WBC >100,000 may have falsely elevated Potassium levels. ??For accurate Potassium quantification in these patients send serum separator tube (gold top) for subsequent determinations. ??Contact the Clinical Chemistry Laboratory if there are any questions. Chloride 104 98 - 107 mmol/L CERNER MILLENNIUM Carbon Dioxide 29 22 - 31 mmol/L CERNER MILLENNIUM Anion Gap 6 5 - 15 mmol/L CERNER MILLENNIUM Calcium 9.3 8.5 - 10.5 mg/dL CERNER MILLENNIUM Protein, Total 8.1 6.4 - 8.3 gm/dL CERNER MILLENNIUM Albumin 4.0 3.2 - 5.2 gm/dL CERNER MILLENNIUM Aspartate Aminotransferase 69(H) 0 - 39 unit/L CERNER MILLENNIUM Alanine Aminotransferase 46 0 - 55 unit/L CERNER MILLENNIUM Alkaline Phosphatase 82 40 - 120 unit/L CERNER MILLENNIUM Bilirubin, Total 1.0 0.2 - 1.3 mg/dL CERNER MILLENNIUM Bilirubin, [...] J Am Soc Nephrol;6:1963-72. Blood specimen (specimen) 12/15/2011 11:42 AM EDT 12/15/2011 11:53 AM EDT Narrative Resulting Agency Comment Spec In Lab Clemencia Hernandez MD [facility]STRY ORDERABLE S [facility] GameWithENNIUM * (ABNORMAL) CBC (with Diff) (12/15/2011 11:42 AM EDT) White Blood Cell 5.8 4.0 - 10.0 x10(3)/mc L CERNER MILLENNIUM Red Blood Cell 4.16(L) 4.63 - 6.08 x10(6)/mc L CERNER MILLENNIUM Hemoglobin 13.8 13.7 - 17.5 gm/dL CERNER MILLENNIUM Hematocrit 39.8(L) 40.0 - 51.0 % CERNER MILLENNIUM Mean Cell Volume 95.7(H) 79.0 - 92.0 fL CERNER MILLENNIUM Mean Cell Hemoglobin 33.2(H) 25.6 - 32.2 pg CERNER MILLENNIUM Mean Cell Hemoglobin Concentration 34.7 32.0 - 36.5 gm/dL CERNER MILLENNIUM Platelet 113(L) 145 - 370 x10(3)/mc L CERNER MILLENNIUM RDW Standard Deviation 50.0(H) 35.0 - 46.0 fL CERNER MILLENNIUM RDW coefficient of variation 14.4 10.9 - 14.4 % THEO FONTANAIUM Mean Platelet Volume 9.0 9.0 - 12.0 fL THEO FONTANAIUM Blood specimen (specimen) 12/15/2011 11:42 AM EDT 12/15/2011 11:53 AM EDT Narrative Resulting Agency Comment Spec In Lab Clemencia Hernandez MD HEMATOLOGY ORDERABL ES THEO ARCOS documented in this encounter Visit Diagnoses Diagnosis Cirrhosis- Primary Cirrhosis of liver without mention of alcohol Cirrhosis Cirrhosis of liver without mention of alcohol documented in this encounter Care Teams [employer] Thread Winder Relationship Specialty Start Date End Date Laurie Wiggins MD [address] [place] [address] PCP - General 03/03/10 02/12/19 documented as of this encounter
--- OUTSIDE RECORDS SUMMARY | 2023-12-21 12:04 | XMS_ITS | Encounter Summary ---
[place] [address] Care Team Providers Care Mental Health Unit Lead Psychologist Name Role Phone Laurie Wiggins MD Primary Care Provider +1- [phone] Reason for Visit * Reason Comments Follow-up Encounter Details Date Type Department Care Team (Late st Contact Info) Description 06/28/2011 1:30 PM EDT Follow-[place] [address] Paty Pedraza APRN [facility] [place] [address] Cirrhosis (Primary Dx) Discharge Disposition: Home Social [...] Sign Reading Time Taken Comments Blood Pressure 110/70 06/28/2011 1:46 PM EDT Pulse 60 06/28/2011 1:46 PM EDT Temperature - - Respiratory Rate - - Oxygen Saturation - - Inhaled Oxygen Concentration - - Weight 91.9 kg (202 lb 8 oz) 06/28/2011 1:46 PM EDT Height 156.2 cm (5' 1.5) 06/28/2011 1:46 PM EDT Body Mass Index 37.64 06/28/2011 1:46 PM EDT documented in this encounter Progress Notes * Paty Pedraza APRN - 06/28/2011 1:57 PM EDT Subjective: Patient ID: Alonzo Urbina is a 56 y.o. male. HPI Mr. Urbina is a 56 year old male with [...] underwent serial variceal band ligation ( at [facility])and was banded in December 2007 (6 bands), January 2008 ( 4 bands) and April of 2008 (3 bands). 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 He reports that he had another episode of gi tract bleeding which did not require blood transfusion, this was sparked by consuming alcohol. He binge drinks several times a year and this may be the source of his bleeding episodes. He was hospitalized again locally and this time when his neighbors had not heard from him for several days they called 911 to do a safety check, he was found down in his house and brought to a local ED. He had been drinking again and this time apparently had seizures. He denies any alcohol for a few months, no further gi tract bleeding. He admits to feeling depressed but not suicidal. He tends to minimize the effects of his alcohol consumption. 03/20/2010 AFP 5.6, wbc 3.1, hg 10, [...] Normal examined duodenum. Review of Systems Constitutional: Positive for fatigue. Negative for fever. Respiratory: Negative for cough and shortness of breath. Gastrointestinal: Positive for nausea (intermittent). Negative for abdominal pain and blood in stool. Psychiatric/Behavioral: Negative for suicidal ideas. Objective: Physical Exam Constitutional: He appears well-developed and well-nourished. HENT: Head: Atraumatic. Cardiovascular: Normal rate, regular rhythm and normal heart sounds. Pulmonary/Chest: He has no wheezes. Abdominal: Soft. He exhibits no ascites. There is hepatomegaly. Assessment and Plan: 1. Cirrhosis needs to continue with biannual hepatoma surveillance. Will schedule abdominal ultrasound locally for July. 2. Portal hypertension, at this time I think that all of his episodes of bleeding are brought on bybinge alcohol abuse. We had a long discussion about how ultimately one of these times he is not going to survive the bleeding. I have again asked that he try something different for his alcohol abuse. He tends to want to minimize his drinking behavior and I am not certain that he is invested in changing. 3. Depression, I have encouraged him to seek care for this issue. He feels that it is contributing to his abuse of alcohol. He has now agreed to see a psychiatrist, I hope that this will be helpful in the long run in regards to his depression which is likely contributing to his chronic alcohol abuse. I will see him back in six months, he is aware that at this point it is he who needs to do the workto get healthier. documented in this encounter Plan of Treatment Upcoming Encounters Date Type Department Care Team (Late st Contact Info) Description 2024 8:15 AM EST Office Visit Dermatology at [place] [address] [place] [address] Jin Nunez MD [address], [place] [address] documented as of this encounter Visit Diagnoses Diagnosis Cirrhosis- Primary Cirrhosis of liver without mention of alcohol documented in this encounter Care Teams Mental Health Unit Lead Psychologist Relationship Specialty Start Date End Date Laurie Wiggins MD [address] [place] [address] PCP - General 03/03/10 02/12/19 documented as of this encounter
--- OUTSIDE RECORDS SUMMARY | 2023-12-21 12:04 | XMS_ITS | Encounter Summary ---
[place] [address] Care Team Providers Care Tent Worker Name Role Phone Laurie Wiggins MD Primary Care Provider +1- [phone] Encounter Details Date Type Department Care Team (Late st Contact Info) Description 09/15/2012 Orders [place] [address] Paty Pedraza, PRODUCTION CONTROL PLANNER [facility] [place] [address] Cirrhosis of liver (Primary Dx) Social History Tobacco Use Types [...] 8:15 AM EST Office Visit Dermatology at [place] [address] [place] [address] Jin Nunez MD [address], [place] [address] documented as of this encounter Procedures Procedure Name Priority Date/Time Associated Diagnosis Comments UPPER GI ENDOSCOPY Routine 12/03/2012 12 :07 PM EDT Cirrhosis of liver documented in this encounter Results * UPPER GI ENDOSCOPY (12/03/2012 12:07 PM EDT) Pathologist [facility] [place] UPPER GI ENDOSCOPY [facility] Endoscopy Patient Name: Alonzo Urbina ? Procedure Date: 12/03/2012 12:07 PM ? Date of : 1955 ? Age: 57 ? Order #: [id number] ? Procedure: ? Upper GI endoscopy Indications: ? Melena Providers: ? Gustabo Garza MD, Ana ? MD Raman, Neyda Ames RN, ? Bernie Martinez, Hatchery Helper Referring MD: ? Medicines: ? Fentanyl 150 micrograms IV, Midazolam ? 3 mg IV Complications: ? No immediate complications. Estimated ? blood loss: None. Procedure: ? Pre-Anesthesia Assessment: ? - Prior [...] and informed consent was obtained. ? - Patient identification and proposed ? procedure were verified prior to the ? procedure by the physician and the ? nurse. The procedure was verified in ? the procedure room. ? - ASA Grade Assessment: III - A ? patient with severe systemic disease. ? - The anesthesia plan was to use ? moderate sedation/analgesia ? (conscious sedation). ? - The heart rate, respiratory rate, ? oxygen saturations, blood pressure, ? adequacy of pulmonary ventilation, ? and response to care were monitored ? throughout the procedure. ? - The physical status of the patient ? was re-assessed after the procedure. ? The procedure, indications, benefits, ? risks and alternatives were explained ? to the patient. Specifically ? discussed were potential ? complications including, but not ? limited to, bleeding, perforation, ? infection, missing a cancer, and ? adverse medication reactions. The ? Endoscope was introduced through the ? mouth, and advanced to the. The ? patient tolerated the procedure well. ? The upper GI endoscopy was ? accomplished with ease. The patient ? tolerated the procedure well. ? Findings: ? The oropharynx was normal. ? Esophagus intubated without difficulty. Distal Grade ? I varices flatted with insuflation, with no stigmata ? of recent bleeding, no red chilango sign. Scar tissue ? noted from prior treatment in the lower third of the ? esophagus. The Z-line noted to be irregular at 36 ? cm from the incisors. Images obtained. Moderate ? diffuse portal hypertensive gastropathy. Small ? punctate erosions noted in pre pylroic region with no ? signs of bleeding, retroflex view of cardia and ? fundus normal.The examined duodenum was normal. ? Impression: ?- Normal oropharynx. GIEV, old ? scaring from previous banding in ? distal esophagus. ? - Moderate portal hypertensive ? gastropathy diffuse throughout ? stomach. No active oozing or bleeding. ? - Normal examined duodenum. Recommendation: ?-No stigmata of recent bleeding, ? patient with moderate gastropathy may ? explain chronic anemia (re-start ? nonselective BB therapy, titrate to ? HR reduction by 25% as sx tolerate). ? Ensure continuation on discharge. If ? he has clinical signs of ongoing ? bleeding, will warrant further work ? up to identify source with repeat ? colonoscopy, VCE as his EGD exam does ? not explain acute decline in Hb. ? -Continue PPI QD ? -No NSAIDs ? -Stop octreotide gtt ? -Complete CFT (can transition to oral ? Cipro) antibiotic therapy for total 5 ? days ? -Continue to monitor Hb, bowel ? movements, transfuse PRBC ? -Ok to advance diet to clears as ? tolerated, if Hb stable can advance ? further in AM ? Attending Participation: ? I was present and participated during the entire ? procedure, including non-alvarez portions. ? ___ Gustabo Garza MD 12/03/2012 1:06 PM Number of Addenda: 0 Note Initiated On: 12/03/2012 12:07 PM PROVATION 12/03/2012 12:0 7 PM EDT Gustabo Garza MD GENERAL SURGICAL OR DERABLES [employer]OVATION documented in this encounter Visit Diagnoses Diagnosis Cirrhosis of liver- Primary Cirrhosis of liver without mention of alcohol documented in this encounter Care Teams Tent Worker Relationship Specialty Start Date End Date Laurie Wiggins MD [address] [place] [address] PCP - General 03/03/10 02/12/19 documented as of this encounter
--- OUTSIDE RECORDS SUMMARY | 2023-12-21 12:04 | XMS_ITS | Encounter Summary ---
Author Organization [facility] [place] [address] Care Team Providers Care Loan Reviewer Name Role Phone Laurie Wiggins MD Primary Care Provider +1- [phone] Encounter Details Date Type Department Care Team (Latest Contact Info) Description 09/27/2012 8:16 AM EDT - 09/27/2012 11:59 PM EDT Hospital [place] [address] Gustabo Garza MD [facility] [place] [address] Cirrhosis Discharge Disposition: Home Social History Tobacco Use [...] tablet Take 1 tablet by mouth daily. polyethylene glycol (MIRALAX) 17 gram packetIndications:Anemia Take 17 g by mouth daily for 30 days. 1 each 2 09/27/2012 10/27/2012 buPROPion (WELLBUTRIN XL) 300 mg 24 hr tablet Take 300 mg by mouth every morning. 12/07/2012 spironolactone (ALDACTONE) 50 mg tablet Take 50 [...] needed. 12/07/2012 documented as of this encounter Plan of Treatment Upcoming Encounters Date Type Department Care Team (Late st Contact Info) Description 2024 8:15 AM EST Office Visit Dermatology at [place] [address] [place] [phone] Jin Nunez MD [address], [place] [address] Scheduled Orders Name Type Priority Associated Diagnoses Orde r Schedule Comprehensive metabolic panel (non-fasting) Lab Routine Cirrhosis 1 Occurrences starting 09/27/2012 CBC (with Diff) Lab Routine Cirrhosis 1 Occurrences starting 09/27/2012 Prothrombin Time Lab Routine Cirrhosis 1 Occurrences starting 09/27/2012 AFP tumor marker Lab Routine Cirrhosis 1 Occurrences starting 09/27/2012 documented as of this encounter Procedures Procedure Name Priority Date/Time Associated Diagnosis Comments DIFFERENTIAL, AUTOMATED Routine 09/27/2012 8:29 AM EDT AFP TUMOR MARKER Routine 09/27/2012 8:29 AM EDT Cirrhosis PROTHROMBIN TIME Routine 09/27/2012 8:29 AM EDT Cirrhosis CBC (WITH DIFF) Routine 09/27/2012 8:29 AM EDT Cirrhosis COMPREHENSIVE METABOLIC PANEL Routine 09/27/2012 8:29 AM EDT Cirrhosis documented in this encounter Results * Differential, Automated (09/27/2012 8:29 AM EDT) Neutrophil % 63.0 34.0 - 71.0 % CERNER [facility] Neutrophil Absolute 2.95 1.50 - 6.30 x10(3)/mcL CERNER [facility]EN[facility] Lymph % 23.7 19.0 - 53.0 % CERNER MILLENNIUM Lymphocytes Abs 1.1 1.0 - 3.6 x10(3)/mcL CERNER MILLENNIUM Monocyte % 8.8 4.0 - 13.0 % CERNER MILLENNIUM Monocyte Abs 0.4 0.2 - 1.0 x10(3)/mcL CERNER MILLENNIUM Eos % 4.1 0.0 - 7.0 % CERNER MILLENNIUM Eosinophils Abs 0.2 0.0 - 0.5 x10(3)/mcL CERNER MILLENNIUM Basophil % 0.4 0.0 - 2.0 % CERNER MILLENNIUM Baso Absolute 0.0 0.0 - 0.2 x10(3)/mcL CERNER MILLENNIUM Immature Gran % 0.00 0.00 - 0.66 % CERNER MILLENNIUM Comment: Immature granulocytes(IG's)percentage and absolute count will include metamyelocytes, myelocytes, and promyelocytes. Blood smears from CBCs yielding IG's will be scanned manually for concordance. If this scan disagrees with the automated IG or if promyelocytes are noted, a manual differential will be performed. Immature Gran Absolute 0.00 0.00 - 0.05 x10(3)/mcL THEO POOLENNIUM Blood specimen (specimen) 09/27/2012 8:29 AM EDT 09/27/2012 8:33 AM EDT Gustabo Garza MD HEMATOLOGY ORDERABL ES THEO ARCOS * (ABNORMAL) AFP tumor marker (09/27/2012 8:29 AM EDT) Alpha Fetoprotein 6(H) <=5 ng/mL THEO FONTANAIUM Comment: Note new Reference Range as of 12-20-2011. Reference: Immulite 2000 AFP package insert ([id number], 2009-01-02) Blood specimen (specimen) 09/27/2012 8:29 AM EDT 09/27/2012 12:28 PM EDT Narrative Resulting Agency Comment Spec In Lab Gustabo Garza MD CHEMISTRY ORDERABLE S Performing Organization Address [facility] Co de Phone Number THEO POOLENNIUM * Prothrombin Time (09/27/2012 8:29 AM EDT) Prothrombin Time 14.1 12.0 - 15.0 sec CERNER MILLENNIUM Comment: [facility] Transfusion Committee Guidelines: INR less than 2.0, PTT less than OR equal to 43.5 seconds, or Fibrinogen greater than or equal to 100 mg/dl indicate adequate procoagulant activity for hemostasis in patients without underlying bleeding disorders. International Normalization Ratio 1.1 0.9 - 1.1 CERNER MILLENNIUM Blood specimen (specimen) 09/27/2012 8:29 AM EDT 09/27/2012 8:33 AM EDT Narrative Resulting Agency Comment Spec In Lab Gustabo Garza MD HEMATOLOGY ORDERABL ES Performing Organization Address [facility] de Phone Number CERSIDDHARTH POOLENNIUM * (ABNORMAL) Comprehensive metabolic panel (non-fasting) (09/27/2012 8:29 AM EDT) Glucose 269(H) 60 - 199 mg/dL CERNER MILLENNIUM Comment:Diabetes: >=200 mg/d L plus symptoms Blood Urea Nitrogen 25(H) 10 - 20 mg/dL CERNER MILLENNIUM Creatinine 1.02 0.80 - 1.50 mg/dL CERNER MILLENNIUM Comment: Please note that the pediatric reference intervals supplied above were not validated at [facility]. Results from pediatric patients should be interpreted [...] Lab Gustabo Garza MD CHEMISTRY ORDERABLE S CERSIDDHARTH POOLENNIUM * (ABNORMAL) CBC (with Diff) (09/27/2012 8:29 [...] Gustabo Garza MD HEMATOLOGY ORDERABL ES THEO ARCOS documented in this encounter Visit Diagnoses Diagnosis Cirrhosis Cirrhosis of liver without mention of alcohol documented in this encounter Care Teams Loan Reviewer Relationship Specialty Start Date End Date Laurie Wiggins MD [address] [place] [address] PCP - General 03/03/10 02/12/19 documented as of this encounter
--- OUTSIDE RECORDS SUMMARY | 2023-12-21 12:04 | XMS_ITS | Encounter Summary ---
Author [place] [address] Care Team Providers Care Healthcare Advisory Services Manager Name Role Phone Laurie Wiggins MD Primary Care Provider +1- [phone] Encounter Details Date Type Department Care Team (Late st Contact Info) Description 10/10/2012 Telephone [place] [address] Jacinta Nunes, RN Social History Tobacco Use Types Packs/Day [...] Miscellaneous Notes * Telephone Encounter - Jacinta Nunes, RN - 10/10/2012 8:55 AM EDT Call from patient inquiring about the use of iron to treat his anemia. He continues to have dark stools just as he has had prior to EGD 09/19: - Grade I esophageal varices. - Mild portal hypertensive gastropathy. - Normal examined duodenum. - No source for bleeding identified. Recommendation: - Observe patient's clinical course. - Follow H/H. - F/up in GI Clinic. He has no vomiting or coughing up blood, no SOB or C/P, lightheadedness, palpitations. He agrees togo to the ED if these symptoms occur. He feels tired. He took iron on the direction of his PCP for about a year, but stopped it around April because he was doing better. He is scheduled for labs, U/S, and an appointment with Sherwin Pedraza NP on 11/02. Will forward to Sherwin Pedraza NP documented in this encounter Plan of Treatment Upcoming Encounters Date Type Department Care Team (Late st Contact Info) Description 2024 8:15 AM EST Office Visit Dermatology at [place] [address] [place] [address] Jin Nunez MD [address] [place] [address] documented as of this encounter Visit Diagnoses Not on filedocumented in this encounter Care Teams Healthcare Advisory Services Manager Relationship Specialty Start Date End Date Laurie Wiggins MD [address] [place] [address] PCP - General 03/03/10 02/12/19 documented as of this encounter
--- OUTSIDE RECORDS SUMMARY | 2023-12-21 12:04 | XMS_ITS | Encounter Summary ---
Author Organization [facility] Address [facility] [place] [address] Care Team Providers Care Manager Roofing Name Role Phone Laurie Wiggins MD Primary Care Provider +1- [phone] Encounter Details Date Type Department Care Team (Latest Contact Info) Description 12/02/2012 8:25 PM EDT - 12/02/2012 10:03 PM EDT Hospital En[place] [address] Man Juárez MD [facility] [place] [address] Discharge Disposition: Admitted to [facility] Social History Tobacco Use Types Packs/Day Years [...] mouth daily. 30 tablet 0 12/07/2012 11/20/2021 buPROPion (WELLBUTRIN XL) 300 mg 24 hr [...] 8:15 AM EST Office Visit Dermatology at [place] [address] [facility] [place] [address] Jin Nunez MD [address] [facility], [place] [address] documented as of this encounter Visit Diagnoses Not on filedocumented in this encounter Care Teams Manager Roofing Relationship Specialty Start Date End Date Laurie Wiggins MD [address] [place] [address] PCP - General 03/03/10 02/12/19 documented as of this encounter
--- OUTSIDE RECORDS SUMMARY | 2023-12-21 12:04 | XMS_ITS | Encounter Summary ---
[place] [address] Care Team Providers Care Mix House Operator Name Role Phone Gina Manzo MD Primary Care Provider [phone] Encounter Details Date Type Department Care Team (Late st Contact Info) Description 12/05/2012 11:00 AM EDT - 12/05/2012 11:45 AM EDT [place] [address] Ernesto Cardona MD [facility] [place] [address] COLONOSCOPY, DIAGNOSTIC (WRVU 3.26) Social History Tobacco Use Types Packs/Day Years [...] follow-up with your primary care physician and automobile salesman. You will need a blood test the [...] scheduled with Dr. GINA MANZO MD at [address] [place] [id number] on , December 14 at 10:45 am. Future Appointments Date Time Provider Department Center 12/28/2012 8:45 AM 2, Ultrasound [facility] [place] None 12/28/2012 11:30 AM Paty Pedraza APRN [facility] [address] [facility] Your Discharge Medication List Unchanged SOLUTIONS SALES EXECUTIVE meds that are or will be resumed Medication Status Sig Dispense Refill ??? multivitamin (THERAGRAN) tablet Active Take 1 tablet by mouth daily. Changed SOLUTIONS SALES EXECUTIVE meds Medication Status Sig Dispense Refill ??? [...] as needed for Sleep. 20 tablet 0 SOLUTIONS SALES EXECUTIVE meds that are DCed or will be [...] mouth daily. Your Inpatient Medical Team at [facility] Name(s) of your inpatient provider(s): Drs. Andres Thompson, Cory Tellez, Ernesto Cardona, Gustabo Garza For questions regarding issues relating to your hospitalization on the Hospital Medicine Service, please contact your inpatient physician through the [facility] Diamond Saw Operator [phone]. Issues after hours and on weekends will be handled by the Hospitalist staff on-call. Your Primary Care Provider GINA MANZO MD [phone] documented in this encounter Medications at Time [...] spent >30 minutes (Day of Discharge Code 22729) involved in the final examination of the [...] discharging to home with prescriptions sent per NANDO LESTER given to pt and reviewed, questions asked [...] Cory Tellez - 12/06/2012 8:35 AM EDT [facility] - Attending Daily Progress Note [...] history. 24 Hour Events/Subjective: H+H, vitals stable Combined Locks negative For capsule endoscopy today to eval [...] friable mucosa throughout the colon, may be customer engagement representative of por kee hypertension. Recommendation: - [...] cirrhosis c/h/o variceal sequential banding to eradication [id number], hx of UGIB without obvious clear source [...] faraz -Code status - Full; Elissa ruth ([phone]) is medical decision maker. I updated her today at bedside and spent >40 minutes with them today. -Disposition - pending medical improvement * Julienne Carlisle RN - 12/05/2012 5:16 PM EDT Initial Assessment/CRC Note Office of Care Management Alonzo Urbina 1955 [address] [facility] [address] Late Entry eDH reviewed. Report received from Dr. Tellez. Patient reviewed in multidisciplinary discharge rounds. S: This place is falling apart in my opinion. O: Introduced self and CRC role to patient and carlos Bowers; patient agrees to CRC services; pt currently lives with Elissa in own home in [place], [place]. CRC contact information left on patient [...] insured via Medicare A,B and D via [employer]. Transportation: Carlos will transport pt home. Anticipated Services at Discharge: will require re-assessment closer to time of d/c. Social Support Patient has given [facility] permission for carlos Parker ( cell [phone])to be contacted. A: medical plan still evolving. P: This procedure writer or colleague from the Office of Care Management will continue to follow patient to assist w/ changing needs and collaborate w/ pt, medical team and family to formulate a plan for discharge; CRC may be reached on [phone] [phone] or by leaving a voice mail message at [phone]. [phone]. See Care Management note in eDH for detailed VNA/DME information upon discharge. Medical Team: Hospitalist Service, pager [phone]. Julienne Carlisle, RN, MSN, [facility] Clinical Mental Health Program Manager Office of Care Management Pager [phone] Phone: [phone] * Socorro Lomeli RN - 12/05/2012 3:09 [...] oozing or bleeding. - Normal examined duodenum. 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 Combined Locks was poor prep with evidence of active [...] them as documented. Ernesto Cardona MD, MS engineering writer Section of Gastroenterology and Hepatology * Francia Nichole RN - 12/05/2012 12:40 PM EDT Report called to RFEDY Niño. * Cory Tellez - 12/05/2012 8:25 AM EDT [facility] - Attending Daily Progress Note [...] cirrhosis c/h/o variceal sequential banding to eradication [id number], hx of UGIB without obvious clear source [...] pt and fiance -Code status - Full; faraz Elissa ([phone]) is medical decision maker. I updated her today at bedside and spent >40 minutes with them today. -Disposition - pending medical improvement * Estela Barba PT - 12/04/2012 2:47 PM EDT Physical therapy Referral received, Attempted initial visit, pt occupied with bathroom Will return tomorrow for evaluation ESTELA BARBA, PT * Cory Tellez - 12/04/2012 9:02 AM EDT [facility] - Attending Daily Progress Note [...] cirrhosis c/h/o variceal sequential banding to eradication [id number], hx of UGIB without obvious clear source [...] 01/11 -Code status - Full; Elissa ruth ([phone]) is medical decision maker. I updated her today at his request. -Disposition - pending medical improvement * Juliette Barreto, MELY - 12/04/2012 1:18 AM EDT Pt had a moderate loose BM at 0100. Black with streaks of adrianna red blood. * Cleopatra Camara, MELY - 12/03/2012 5:54 PM EDT Pt transferred to 142A from ICU accompanied by transportation staff. A&Ox4. [...] Cory Tellez - 12/03/2012 8:47 AM EDT [facility] - Attending Daily Progress Note [...] TYPE MANUAL Component Value Range Specimen OD [id number] ABORh Type A Pos SELECTED CELL SCREEN [...] 01/11 -Code status - Full; Elissa ruth ([phone]) is medical decision maker. I updated her [...] behavior ID: 57 y.o. Male presents to [facility] with GI bleed. History of Present Illness: [...] + Extremities: No edema, peripheral pulses + HEALTH AID: Awake, alert, oriented. No focal deficits. Laboratory [...] 12/08/2012 3:03 PM EDTAssociated Order(s): SCAN DOC: PRINT SHOP HELPER * Provider, Scanning - 12/08/2012 2:46 PM [...] a 57 y.o. male who presents to [facility] with GI bleeding History of Present Illness [...] further clinical details. Sharon Gill MD 12/02/12 221 Sharon Gill MD 12/02/121 documented in this encounter Miscellaneous Notes * [...] within 8 hours. Medicated x 1 per JUN for nausea. Blood pressures in 90's. * [...] friable mucosa throughout the colon, may be customer engagement representative of por kee hypertension. Recommendation: - [...] cirrhosis c/h/o variceal sequential banding to eradication [id number], hx of UGIB without obvious clear source [...] follow-up with your primary care physician and automobile salesman. You will need a blood test the [...] scheduled with Dr. GINA MANZO MD at [address] [place] [address] on December 14 at 10:45 am. Future Appointments Date Time Provider Department Center 12/28/2012 8:45 AM 2, Ultrasound [place] [facility] None 12/28/2012 11:30 AM Paty Pedraza, SAMANTHA PADILLA[address] CLIN Your Discharge Medication List Unchanged SOLUTIONS SALES EXECUTIVE meds that are or will be resumed Medication Status Sig Dispense Refill ??? multivitamin (THERAGRAN) tablet Active Take 1 tablet by mouth daily. Changed SOLUTIONS SALES EXECUTIVE meds Medication Status Sig Dispense Refill ??? [...] as needed for Sleep. 20 tablet 0 SOLUTIONS SALES EXECUTIVE meds that are DCed or will be [...] mouth daily. Your Inpatient Medical Team at [facility] Name(s) of your inpatient provider(s): Drs. Andres Thompson, Cory Tellez, Ernesto Cardona, Gustabo Garza For questions regarding issues relating to your hospitalization on the Hospital Medicine Service, please contact your inpatient physician through the [facility] Diamond Saw Operator [phone]. Issues after hours and on weekends will be handled by the Hospitalist staff on-call. Your Primary Care Provider GINA MANZO MD [phone] General Instructions None Future Appointments and Orders Future Appointments: Provider: Department: Dept Phone: Center: 12/28/2012 8:45 AM Ultrasound Rm 2 [facility] RAD ULTRASOUND [phone] None 12/28/2012 11:30 AM Paty Pedraza APRN Gastroenterology [phone] [facility] Discharge References/Attachments: Discharge References/Attachments None Inpatient Provider Contact Information: For questions regarding this document or issues relating to this hospitalization on the Medical Service, please contact your inpatient physician through the [facility] Diamond Saw Operator . Issues afterhours and on weekends [...] study. Patient has taken the 2000cc of [employer] ordered this afternoon. Medicated for nausea per JUN. * Op Note - Ernesto Cardona MD - 12/05/2012 5:03 PM EDT [facility] Operative Note Patient Name: Alonzo Urbina : [id number] MR#: [id number] Case Date: 12/05/2012 Surgeon: Surgeon(s) and Role: [...] eval Total timed interventions: 0 minutes ESTELA BARBA PT 12/05/2012 Pager: [phone] Physical Therapy Rehabilitation Department * Plan of [...] MD - 12/02/2012 11:59 PM EDT . [facility] Section of Gastroenterology and Hepatology Initial Inpatient Consultation Patient Name: Alonzo Urbina : 1955 Referring provider: Dr. Granados, medicine Date of Consult: 12/02/12 Reason for Consult: UGIB History of Present Illness: Alonzo Urbina is a 57 y.o. WM, [facility] s/o ETOH abuse (sober 12/21), HCV (PEG [...] day denies daily use. Had colonoscopy at [facility] reportedly WNL. Last EGD09/21 Dr. Browne, [...] encephalopathy Recommendations reviewed with Primary team. Ana Cmaargo MD Gastroenterology Fellow I have seen and [...] PM EDT [facility] For evaluation of GI bleeding pt is alert oriented resp regular unlabored pt is dizzy when standing skin is cool and pale documented in this encounter Plan of Treatment Upcoming Encounters Date Type Department Care Team (Late st Contact Info) Description 2024 8:15 AM EST Office Visit Dermatology at [place] [address] [facility] [place] [id number] Jin Nunez MD [address], [place] [address] documented as of this encounter Procedures Procedure Name Priority Date/Time Associated Diagnosis Comments PRINT SHOP HELPER SCAN 12/08/2012 3:03 PM EDT LAB SCAN [...] in this encounter Results * SCAN DOC: PRINT SHOP HELPER (12/08/2012 3:03 PM EDT) Anatomical Region Laterality [...] Cory Tellez MD HEMATOLOGY ORDERABLE S CERNER CORINEENNIUM * (ABNORMAL) CBC (with Diff) (12/07/2012 9:02 [...] (12/06/2012 8:00 AM EDT) VIDEO CAPSULE ENDOSCOPY [facility] Endoscopy ___ Patient Name: Alonzo Urbina ? Procedure Date: 12/06/2012 8:00 AM ? N: [id number] ? Date of : 1955 ? Age: 57 ? Order #: [id number] ? ___ Procedure: ? Video capsule endoscopy [...] EDT Param Granados MD HEMATOLOGY ORDERAB LES Performing Organization Address [facility] Co de Phone Number [facility] CORINEENNIUM * (ABNORMAL) Hepatic Function Panel (12/06/2012 [...] Tellez MD CHEMISTRY ORDERABLES Performing Organization Address [facility] Co de Phone Number [facility] ADDIIUM * (ABNORMAL) Basic Metabolic Panel (non-fasting) (12/06/2012 6:12 AM EDT) Glucose 126 60 - 199 mg/dL CERNER MILLENNIUM Comment:Diabetes: >=200 mg/d L plus symptoms Blood Urea Nitrogen 8(L) 10 - 20 mg/dL CERNER MILLENNIUM Creatinine 0.84 0.80 - 1.50 mg/dL CERNER MILLENNIUM Comment: Please note that the pediatric reference intervals supplied above were not validated at [facility]. Results from pediatric patients [...] Lab Cory Tellez MD HEMATOLOGY ORDERABLE S CERNER MILLENNIUM * COLONOSCOPY (12/05/2012 11:38 AM EDT) COLONOSCOPY [facility] Endoscopy ___ Patient Name: Alonzo Urbina ? Procedure Date: 12/05/2012 11:38 AM ? Date of : 1955 ? Age: 57 ? Order #: [id number] ? ___ Procedure: ? Colonoscopy Indications: ? Gastrointestinal occult blood loss Providers: ? Ernesto Cardona MD, Ariana Austin, ? , Davi Kapadia RN, Janie Blood ? Marv, Air Export Agent Referring MD: ? Medicines: ? Midazolam 4 [...] ? throughout the colon, may be ? customer engagement representative of portal hypertension. Recommendation: ?- Although [...] Param Granados MD HEMATOLOGY ORDERAB LES [facility] * (ABNORMAL) Basic Metabolic Panel (non-fasting) (12/05/2012 5:39 AM EDT) [facility] Glucose 135 60 - 199 mg/dL CERNER MILLENNIUM Comment:Diabetes: >=200 mg/d L plus symptoms Blood Urea Nitrogen 14 10 - 20 mg/dL CERNER MILLENNIUM Creatinine 0.92 0.80 - 1.50 mg/dL CERNER MILLENNIUM Comment: Please note that the pediatric reference intervals supplied above were not validated at [facility]. Results from pediatric patients [...] Lab Param Granados MD HEMATOLOGY ORDERAB LES [facility] WE[facility] FONTANAIUM * (ABNORMAL) Hemoglobin and Hematocrit, blood (12/04/2012 9:55 PM EDT) Hemoglobin 7.6(L) 13.7 - 17.5 gm/dL [facility] CORINEENNIUM Hematocrit 22.9(L) 40.0 - 51.0 % [facility] CORINEENNIUM Blood specimen (specimen) 12/04/2012 9:55 PM EDT 12/04/2012 10:07 PM EDT Narrative Resulting Agency Comment Spec In Lab Cory Tellez MD HEMATOLOGY ORDERABLE S [facility] CORINECOPPER [facility]ITALIUM * APTT (12/04/2012 3:13 PM EDT) Partial Thromboplastin Time 31 25 - 35 sec [facility] MILLENNIUM Comment: Recommended therapeutic PTT range for full dose unfractionated heparin is 80-114 seconds. Blood specimen (specimen) 12/04/2012 3:13 PM EDT 12/04/2012 3:26 PM EDT Narrative Resulting Agency Comment Spec In Lab Cory Tellez MD HEMATOLOGY ORDERABLE S Performing Organization Address City/[facility]/ZIP Co de Phone Number CERNER MILLENNIUM * (ABNORMAL) Hemoglobin and Hematocrit, blood (12/04/2012 3:13 PM EDT) Hemoglobin 8.4(L) 13.7 - 17.5 gm/dL CERNER MILLENNIUM Hematocrit 25.8(L) 40.0 - 51.0 % CERNER MILLENNIUM Blood specimen (specimen) 12/04/2012 3:13 PM EDT 12/04/2012 3:25 PM EDT Narrative Resulting Agency Comment Spec In Lab Cory Tellez MD HEMATOLOGY ORDERABLE S Performing Organization Address [facility] de Phone Number CERNER MILLENNIUM * (ABNORMAL) Basic Metabolic Panel (non-fasting) (12/04/2012 3:13 PM EDT) Glucose 118 60 - 199 mg/dL CERNER MILLENNIUM Comment:Diabetes: >=200 mg/d L plus symptoms Blood Urea Nitrogen 20 10 - 20 mg/dL CERNER MILLENNIUM Creatinine 0.94 0.80 - 1.50 mg/dL CERNER MILLENNIUM Comment: Please note that the pediatric reference intervals supplied above were not validated at [facility]. Results from pediatric patients [...] Tellez MD CHEMISTRY ORDERABLES Performing Organization Address [facility] de Phone Number CERSIDDHARTH MILLENNIUM * (ABNORMAL) Prothrombin Time (12/04/2012 3:13 PM EDT) Prothrombin Time 16.2(H) 12.0 - 15.0 sec CERNER MILLENNIUM Comment: [facility] Transfusion Committee Guidelines: INR less [...] MD HEMATOLOGY ORDERABLE S Performing Organization Address [facility] de Phone Number CERNER MILLENNIUM * (ABNORMAL) Hemoglobin and Hematocrit, blood (12/04/2012 9:13 AM EDT) Hemoglobin 7.7(L) 13.7 - 17.5 gm/dL CERNER MILLENNIUM Hematocrit 23.9(L) 40.0 - 51.0 % CERNER MILLENNIUM Blood specimen (specimen) 12/04/2012 9:13 AM EDT 12/04/2012 9:19 AM EDT Narrative Resulting Agency Comment Spec In Lab Cory Tellez MD HEMATOLOGY ORDERABLE S Performing Organization Address [facility] Co de Phone Number CERNER MILLENNIUM * (ABNORMAL) Hemoglobin and Hematocrit, blood (12/04/2012 6:32 AM EDT) Hemoglobin 8.0(L) 13.7 - 17.5 gm/dL CERNER MILLENNIUM Hematocrit 23.8(L) 40.0 - 51.0 % CERNER MILLENNIUM Blood specimen (specimen) 12/04/2012 6:32 AM EDT 12/04/2012 6:58 AM EDT Narrative Resulting Agency Comment Spec In Lab Cory Tellez MD HEMATOLOGY ORDERABLE S Performing Organization Address City/[facility] Co de Phone Number THEO POOLENNIUM * Ammonia (12/04/2012 6:32 AM EDT) Ammonia 30 16 - 60 mcmol/L CERNER MILLENNIUM Blood specimen (specimen) 12/04/2012 6:32 AM EDT 12/04/2012 6:57 AM EDT Narrative Resulting Agency Comment Spec In Lab Cory Tellez MD CHEMISTRY ORDERABLES Performing Organization Address [facility] de Phone Number THEO POOLENNIUM * (ABNORMAL) Hemoglobin and Hematocrit, blood (12/03/2012 11:08 PM EDT) Hemoglobin 8.2(L) 13.7 - 17.5 gm/dL CERNER MILLENNIUM Hematocrit 24.5(L) 40.0 - 51.0 % CERNER MILLENNIUM Blood specimen (specimen) 12/03/2012 11:08 PM EDT 12/03/2012 11:13 PM EDT Narrative Resulting Agency Comment Spec In Lab Cory Tellez MD HEMATOLOGY ORDERABLE S Performing Organization Address [facility] de Phone Number CERSIDDHARTH POOLENNIUM * (ABNORMAL) Hemoglobin and Hematocrit, blood (12/03/2012 4:50 PM EDT) Hemoglobin 8.2(L) 13.7 - 17.5 gm/dL CERNER MILLENNIUM Hematocrit 25.1(L) 40.0 - 51.0 % CERNER MILLENNIUM Blood specimen (specimen) 12/03/2012 4:50 PM EDT 12/03/2012 4:50 PM EDT Narrative Resulting Agency Comment Spec In Lab Cory Tellez MD HEMATOLOGY ORDERABLE S Performing Organization Address City/[facility] Co de Phone Number CERSIDDHARTH MILLENNIUM * Transfuse RBC (12/03/2012 12:06 PM EDT) Cory Tellez MD NURSING TREATMENT OR DERABLES - BLOOD ADMIN * Prepare RBC (12/03/2012 9:40 AM EDT) Pathologist [facility] Dispensed? Yes [facility] CORINELUCILE [facility] Blood specimen (specimen) 12/03/2012 9:40 AM EDT 12/03/2012 9:36 AM EDT Cory Tellez MD BLOOD BANK PRODUCT O RDERABLES [facility] CORINECOPPER [facility]ITALJHONATHAN * POCT Glucose (12/03/2012 6:35 AM EDT) Pathologist [facility] Glucose, POC 129 60 - 199 mg/dL [facility] Comment: Supplemental ranges: <110 mg/dL before meals <200 mg/dL all other times of the day Blood specimen (specimen) 12/03/2012 6:35 AM EDT 12/03/2012 6:35 AM EDT Param Granados MD POINT OF CARE TEST ORDERABLES Performing Organization Address City/[facility] Co de Phone Number [facility] WESTSIDDHARTH POOLCOPPER QUE[facility] COMM[facility]ITY HOSPITALJHONATHAN * Differential, Automated (12/03/2012 6:33 AM EDT) Neutrophil % 56.9 34.0 - 71.0 % [facility] Neutrophil Absolute 2.67 1.50 - 6.30 x10(3)/mcL [...] Param Granados MD HEMATOLOGY ORDERAB LES [facility] MILLENNIUM * (ABNORMAL) Basic Metabolic Panel (non-fasting) (12/03/2012 6:33 AM EDT) [facility] Glucose 128 60 - 199 mg/dL CERNER MILLENNIUM Comment:Diabetes: >=200 mg/d L plus symptoms Blood Urea Nitrogen 42(H) 10 - 20 mg/dL CERNER MILLENNIUM Creatinine 0.86 0.80 - 1.50 mg/dL CERNER MILLENNIUM Comment: Please note that the pediatric reference intervals supplied above were not validated at [facility]. Results from pediatric patients [...] Platelet Volume 9.4 9.0 - 12.0 fL THEO ARCOS Blood specimen (specimen) 12/03/2012 6:33 AM EDT 12/03/2012 6:36 AM EDT Narrative Resulting Agency Comment Spec In Lab Param Granados MD HEMATOLOGY ORDERAB LES Performing Organization Address [facility] Co de Phone Number THEO ARCOS * Transfuse RBC (12/03/2012 5:33 AM EDT) Sharon Gill MD NURSING TREATMENT O RDERABLES - BLOOD ADMIN * Transfuse RBC (12/03/2012 5:33 AM EDT) Sharon Gill MD NURSING TREATMENT O RDERABLES - BLOOD ADMIN * POCT Glucose (12/03/2012 1:26 AM EDT) Pathologist [facility] Glucose, POC 105 60 - 199 mg/dL [facility] CORINECOPPER [facility]ITALJHONATHAN Comment: Supplemental ranges: <110 mg/dL before meals <200 mg/dL all other times of the day Blood specimen (specimen) 12/03/2012 1:26 AM EDT 12/03/2012 1:26 AM EDT Param Granados MD POINT OF CARE TEST ORDERABLES Performing Organization Address [facility] Phone Number THEO ARCOS * Prepare RBC (12/02/2012 11:00 PM EDT) Dispensed? Yes THEO ARCOS Blood specimen (specimen) 12/02/2012 11:00 PM EDT 12/02/2012 10:59 PM EDT Sharon Gill MD BLOOD BANK PRODUCT ORDERABLES Performing Organization Address [facility] Phone Number [facility] CORINECOPPER [facility]ITALJHONATHAN * Selected Cell Screen (12/02/2012 10:30 [...] MD BLOOD BANK LAB ORDJluis [place] CERNER CORINEENNIUM * ABORh Type Manual (12/02/2012 10:30 PM EDT) Expires at 2359 on: [id number] CERNER MILLENNIUM ABORH Type A Pos CERNER MILLENNIUM Blood specimen (specimen) 12/02/2012 10:30 PM EDT 12/02/2012 10:35 PM EDT Narrative Resulting Agency Comment Spec In Lab Sharon Gill MD BLOOD BANK LAB ORDJluis [place] Performing Organization Address City/[facility] Co de Phone Number CERNER MILLENNIUM * Differential, Automated (12/02/2012 10:30 [...] MD HEMATOLOGY ORDERABL ES Performing Organization Address [facility] Co de Phone Number THEO FONTANAIUM * Gold Tube HOLD (12/02/2012 10:30 PM EDT) Gold Hold Sample in lab. THEO FONTANAIUM Blood specimen (specimen) 12/02/2012 10:30 PM EDT 12/02/2012 10:33 PM EDT Sharon Gill MD CHEMISTRY ORDERABLE S Performing Organization Address [facility] de Phone Number THEO POOLENNIUM * (ABNORMAL) APTT (12/02/2012 10:30 PM EDT) Partial Thromboplastin Time 36(H) 25 - 35 sec [facility] MILLENNIUM Comment: Recommended therapeutic PTT range for full dose unfractionated heparin is 80-114 seconds. Blood specimen (specimen) 12/02/2012 10:30 PM EDT 12/02/2012 10:33 PM EDT Narrative Resulting Agency Comment Spec In Lab Sharon Gill MD HEMATOLOGY ORDERABL ES Performing Organization Address [facility] de Phone Number THEO FONTANAIUM * (ABNORMAL) Prothrombin Time (12/02/2012 10:30 PM EDT) Prothrombin Time 16.8(H) 12.0 - 15.0 sec [facility] MILLENNIUM Comment: [facility] Transfusion Committee Guidelines: INR less [...] MD HEMATOLOGY ORDERABL ES Performing Organization Address [facility] de Phone Number CERNER MILLENNIUM * (ABNORMAL) [...] MD CHEMISTRY ORDERABLE S Performing Organization Address City/[facility] Co de Phone Number CERNER MILLENNIUM * Glucose, random (12/02/2012 10:30 PM EDT) Glucose 121 60 - 199 mg/dL CERNER MILLENNIUM Comment:Diabetes: >=200 mg/d L plus symptoms Blood specimen (specimen) 12/02/2012 10:30 PM EDT 12/02/2012 10:33 PM EDT Narrative Resulting Agency Comment Spec In Lab Sharon Gill MD CHEMISTRY ORDERABLE S Performing Organization Address City/[facility]/ZIP Co de Phone Number THEO ARCOS * (ABNORMAL) Creatinine (12/02/2012 10:30 PM EDT) Creatinine 0.76(L) 0.80 - 1.50 mg/dL THEO POOLENNIUM Comment: Please note that the pediatric reference intervals supplied above were not validated at [facility]. Results from pediatric patients should be interpreted in conjunction to the patient's age, height and muscle mass. Est Glomerular Filtration Rate >60 >=60 CERSIDDHARTH POOLENNIUM Comment: This estimated GFR (eGFR) value was [...] MD CHEMISTRY ORDERABLE S Performing Organization Address [facility] Phone Number THEO ARCOS * (ABNORMAL) BUN (12/02/2012 10:30 PM EDT) Blood Urea Nitrogen 41(H) 10 - 20 mg/dL [facility] WESTSIDDHARTH ARCOS Blood specimen (specimen) 12/02/2012 10:30 PM EDT 12/02/2012 10:33 PM EDT Narrative Resulting Agency Comment Spec In Lab Sharon Gill MD CHEMISTRY ORDERABLE S Performing Organization Address [facility] de Phone Number THEO ARCOS * (ABNORMAL) Electrolytes panel (12/02/2012 10:30 PM EDT) Sodium 140 135 - 145 mmol/L [facility] Potassium 4.3 3.5 - 5.0 mmol/L CERNER [...] Sharon Gill MD HEMATOLOGY ORDERABL ES THEO POOLLUCILE [facility] documented in this encounter Visit Diagnoses Not on filedocumented in this encounter Administered Medications Inactive Administered Medications - up to 3 most recent administrations Medication Order MAR Action Action Date Dose Rate Site diphenhydrAMINE (BENADRYL) injection ONCE PRN, Starting on Tue12/05/12 at 1149, Until Tue12/05/12 at 1230, Itching, Intra-Operative (Intra-Procedure), Routine Given 12/05/2012 11:54 AM EDT 25 mg Given 12/05/2012 11:49 AM EDT 25 mg fentaNYL 50 mcg/mL 5 mL multidose injection ONCE PRN, Starting on Tue12/05/12 at 1149, Until Tue12/05/12 at 1230, Pain, comfort, Intra-Operative (Intra-Procedure), Routine Given 12/05/2012 11:58 AM E DT 50 mcg Given 12/05/2012 11:54 AM EDT 50 mcg Given 12/05/2012 11:49 AM EDT 50 mcg midazolam (VERSED) injection ONCE PRN, Starting on Tue12/05/12 at 1154, Until Tue12/05/12 at 1230, Sleep, Intra-Operative (Intra-Procedure), Routine Given 12/05/2012 11:59 AM EDT 1 mg Given 12/05/2012 11:54 AM EDT 1 mg Given 12/05/2012 11:49 AM EDT 2 mg documented in this encounter Active and [...] Lomeli RN) 0231 (Given - Provider: Radha Guzmán RN)1400 (Given - Provider: Himanshu Gallegos RN) [...] Socorro Lomeli RN)1330 (Restarted - Provider: Socorro Lomeli, RN)2017 (New Bag - Provider: Radha Guzmán, RN) 0559 (New Bag - Provider: Radha Guzmán, RN) 0008 (New Bag - Provider: Socorro Lomeli, RN)0916 (Restarted - Provider: Saniya Palmer, MELY)1106 (New Bag - Provider: Barbara Hutchison, RN) PRN Medication Order 12/05/2012 12/06/2012 12/07/2012 [...] Intravenous, EVERY 8 HOURS PRN, Starting on Tue13 at 0142, Until Dayan 12/07/12 at 1439, [...] Rosario Staley RN)1843 (Given - Provider: Socorro Lomeli, MELY) 2355 (Given - Provider: Socorro Lomeli, MELY) traZODone (DESYREL) tablet 50 mg 50 mg, Oral, NIGHTLY PRN, Starting on Tu12/05/12 at 1722, Until Dayan 12/07/12 at 1439, Sleep, Routine 2032 (Given - Provider: Radha Guzmán, MELY) 211 (Given - Provider: Socorro Lomeli, MELY) Linked [...] ineffective documented in this encounter Care Teams Mix House Operator Relationship Specialty Start Date End Date Gina Manzo MD [address] [facility] [place] [address] PCP - General 03/03/10 02/12/19 documented as of this encounter
--- OUTSIDE RECORDS SUMMARY | 2023-12-21 12:04 | XMS_ITS | Encounter Summary ---
Author Organization [facility] [address] Care Team Providers Care Propulsion Generator Repairer Name Role Phone Laurie Wiggins MD Primary Care Provider [phone]- [phone] Encounter Details Date Type Department Care Team (Late st Contact Info) Description 04/17/2012 9:57 AM EST - 04/17/2012 11:59 PM [facility] Hospital Encounter [place] [address] Cirrhosis Social History Tobacco Use Types Packs/Day [...] tablet Take 1 tablet by mouth daily. thiamine 100 mg tablet Take 100 mg [...] 8:15 AM EST Office Visit D[facility]atology at [place] [address] [place] [phone] Jin Nunez MD [address], [place] [address] documented as of this encounter Procedures Procedure Name Priority Date/Time Associated Diagnosis Comments US ABDOMEN COMPLETE Routine 04/17/2012 1 0:57 AM EST Cirrhosis documented in this encounter Results * US abdomen complete (04/17/2012 10:57 AM EST) Anatomical Region Laterality Modality Abdomen, Vascular Ultrasound 04/17/2012 10:5 7 AM EST Narrative 04/17/2012 11:44 AM EST ?Abdominal ? (Signed Final 04/17/2012 11:44 am) Patient Info ID: ? [id number] ? : ??[birth year] (56 yrs) Name: ? ALMA CARBALLO ? Visit Date: 04/17/2012 10:49 am Performed By Performed By: ?nAy Pike Associate: ? Lauren LESTER, Torres Junior Attending: ? Blake Case MD Referred By: ? CLEMENCIA HERNANDEZ MD Service(s) Provided [facility] - Abdominal Complete Survey - [id number] ? [id number] Indications Cirrhosis ----- Liver ----- Right Lobe [...] Final 04/17/2012 11:44 am) Patient Info ID: [id number] : [birth year] (56 yrs) Name: ALMA CARBALLO Visit Date: 04/17/2012 10:49 am Performed By Performed By: Any Pike Associate: Torres Aguilar MD Attending: Blake Case MD Referred By: CLEMENCIA HERNANDEZ MD Service(s) Provided [facility] - Abdominal Complete Survey - [phone] Indications Cirrhosis ----- Liver ----- Right Lobe [...] Hernandez MD IMG US GEN ORDERABL ES documented in this encounter Visit Diagnoses Diagnosis Cirrhosis Cirrhosis of liver without mention of alcohol documented in this encounter Care Teams Propulsion Generator Repairer Relationship Specialty Start Date End Date Laurie Wiggins MD [address] [place] [address] PCP - General 03/03/10 02/12/19 documented as of this encounter
--- OUTSIDE RECORDS SUMMARY | 2023-12-21 12:05 | XMS_ITS | Encounter Summary ---
Author Organization [facility] Address [address] [place] [address] Care Team Providers Care Wallpaper Installer Name Role Phone George Lou NORMA Primary Care Provider [phone] [phone] Reason for Referral * Radiology Services (Routine/Next Available) - Authorization Not Required Specialty Diagnoses / Procedures Referred By Tad alcaraz Referred To Contact Diagnoses Other cirrhosis of liver (HCC-CMS) Procedures US LIVER/ABDOMEN VISCERAL DUPLEX Guicho Rosales MD [address] [place] [phone] [facility] Referral ID Status Reason Start Date Expiration Date Visits Requested Visits Authorized [id number] Authorization Not Required 09/12/2023 1 1 Encounter Details Date Type Department Care Team (Late st Contact Info) Description 09/12/2023 Orders Only [facility] Interventional Radiology - [place] [id number] Guicho Rosales MD [address] [place] [phone] Other cirrhosis of liver (HCC-CMS) (Primary Dx) Social History Tobacco Use Types Packs/Day Years Used Date Smoking Tobacco: Never Smokeless Tobacco: Never Alcohol Use Standard Drinks/Week Comments No 0 (1 standard drink = 0.6 oz pur e alcohol) Interpersonal Safety Answer Date Record ed Physically Hurt Never 11/11/2019 Verbally Threaten Not on file 11/11/2019 Sex and Gender Information Value Date Recorded Sex Assigned at Not on file Gender Identity Male 04/24/2019 8:12 EST Sexual Orientation Not on file documented as of this encounter Functional Status Functional Status Response Date of Assess ment Are you deaf or do you have serious difficulty h earing? Yes 08/09/2018 Are you blind or do you have serious difficulty seeing, even when wearing glasses? No 08/09/2018 Do you have serious difficul ty walking or climbing stairs? (5 years old or older) No 08/09/2018 Do you have difficulty dress ing or bathing? (5 years old or older) No 08/09/2018 Because of a physical, menta l, or emotional condition, do you have difficulty doing errands alone such as visiting a doctor's office or shopping? (15 years old or older) No 08/09/2018 Cognitive Status Response Date of Assessm ent Because of a physical, menta l, or emotional condition, do you have serious difficulty concentrating, remembering, or making decisions? (5 years old or older) No 08/09/2018 documented as of this encounter Plan of Treatment Upcoming Encounters Date Type Department Care Team (Late st Contact Info) Description 01/23/2024 10:00 EDT Office Visit [facility] General Surgery - [address] [address] Bon Gutierrez MD [address] [facility], [address] [place] [phone] 09/10/2024 10:00 EDT Appointment Shaina Bergeron Ultrasound [address] [place] [address] documented as of this encounter Results * US ABDOMEN LIMITED WITH LIMITED DUPLEX (10/10/2023 12:17 EDT) Anatomical Region Laterality Modality Abdomen Ultrasound 10/10/2023 14:5 8 EDT Impressions 10/10/2023 14:58 EDT FINDINGS/ IMPRESSION: Liver: The liver measures 11.6 cm, which is normal. In the left hepatic lobe, there is a heterogeneous predominantly solid mass measuring 2.6 x 2.6 x 2.0 cm with internal color Doppler flow and a central cystic component. There is heterogeneous hepatic parenchymal echotexture. Free Fluid: No free fluid is present in the right upper quadrant of the abdomen. Varices: None identified. Paraumbilical Vein: Recanalized paraumbilical vein is present. Other findings: Shadowing gallstones are noted layering dependently within the gallbladder. DOPPLER: TECHNIQUE: Color and spectral Doppler evaluation of the portal veins, TIPS, hepatic veins, splenic vein, superior mesenteric vein, hepatic artery, and inferior vena cava was performed. Due to difficulty with patient positioning and kyphoscoliosis, evaluation of the right portal vein, left portal vein, splenic vein, and hepatic artery is suboptimal on ultrasound FINDINGS: Main Portal Vein: Roughly 20 cm/s, previously 60.5 cm/s. Direction of flow is towards TIPS, previously towards TIPS. The main portal vein diameter measures 0.8 cm with title breathing and 1.1 cm with deep inspiration. Right Portal Vein: Not visualized. Left Portal Vein: Not visualized. Shunt (proximal/portal vein end): 89.5 cm/s, previously 75.7 cm/s. Direction of flow is towards RHV end cm/s, previously towards RHV end. Shunt (mid): 123.6 cm/s, previously 87.4 cm/s. Direction of flow is towards RHV end cm/s, previously towards RHV end. Shunt (distal/RHV end): 106.6 cm/s, previously 108 cm/s. Direction of flow is towards RHV end cm/s, previously towards RHV end. Right Hepatic Vein: 86.7 cm/s, previously 112 cm/s. Direction of flow is away from TIPS. Splenic vein at Pancreas: Direction of flow is not visualized.. Inferior vena cava: Normal waveform. Hepatic Artery: Peak systolic velocity: Not visualized. IMPRESSION: 1. ??While the TIPS appears patent, there is decreased velocity in the main portal vein, interval increase in velocity in the midportion of the TIPS, and interval recanalization of the paraumbilical vein. Findings raise concern for TIPS stenosis. 2. ??Heterogeneous, solid and cystic rounded mass in the left hepatic lobe measuring up to 2.6 cm, new compared to prior exam. Contrast-enhanced abdominal MRI is recommended to evaluate for possibility of hepatocellular carcinoma. 3. ??Cholelithiasis. Reference: Guillermo RY, Marilyn LESTER, Nicole WD, Naresh KM, Nelly SA, Pilpaula TK. Doppler sonography findings associated with transjugular intrahepatic portosystemic shunt malfunction. AJR Am J Roentgenol. 1996. May;168(2):467-20. I have personally reviewed the images and the above interpretation and agree with the findings. [id number] Narrative 10/10/2023 14:58 EDT US ABDOMEN LIMITED WITH LIMITED DUPLEX ??10/10/2023 11:20 AM SIGNS AND SYMPTOMS/COMMENTS: TIPS. Need ultrasound surveillance to assess for patency and stenosis.;K74.69:Other cirrhosis of liver (HCC-CMS) COMPARISONS: TIPS ultrasound from 09/21/2022 and 09/08/2021 GRAYSCALE: TECHNIQUE: Grayscale ultrasound images of the liver were obtained. INDICATION FOR GRAYSCALE: Evaluate for structural abnormality Resulting Agency Comment [id number] Procedure Note Selvin Rowe MD - 10/10/2023 US ABDOMEN LIMITED WITH LIMITED DUPLEX 10/10/2023 11:20 AM SIGNS AND SYMPTOMS/COMMENTS: TIPS. Need ultrasound surveillance to assessfor patency and stenosis.;K74.69:Other cirrhosis of liver (HCC-CMS) COMPARISONS: TIPS ultrasound from 09/21/2022 and 09/08/2021 GRAYSCALE: TECHNIQUE: Grayscale ultrasound images of the liver were obtained. INDICATION FOR GRAYSCALE: Evaluate for structural abnormality IMPRESSION FINDINGS/ IMPRESSION: Liver: The liver measures 11.6 cm, which is normal. In the left hepaticlobe, there is a heterogeneous predominantly solid mass measuring 2.6 x2.6 x 2.0 cm with internal color Doppler flow and a central cysticcomponent. There is heterogeneous hepatic parenchymal echotexture. Free Fluid: No free fluid is present in the right upper quadrant of theabdomen. Varices: None identified. Paraumbilical Vein: Recanalized paraumbilical vein is present. Other findings: Shadowing gallstones are noted layering dependently withinthe gallbladder. DOPPLER: TECHNIQUE: Color and spectral Doppler evaluation of the portal veins,TIPS, hepatic veins, splenic vein, superior mesenteric vein, hepaticartery, and inferior vena cava was performed. Due to difficulty withpatient positioning and kyphoscoliosis, evaluation of the right portalvein, left portal vein, splenic vein, and hepatic artery is suboptimal onultrasound FINDINGS: Main Portal Vein: Roughly 20 cm/s, previously 60.5 cm/s. Direction of flowis towards TIPS, previously towards TIPS. The main portal vein diametermeasures 0.8 cm with title breathing and 1.1 cm with deep inspiration. Right Portal Vein: Not visualized. Left Portal Vein: Not visualized. Shunt (proximal/portal vein end): 89.5 cm/s, previously 75.7 cm/s.Direction of flow is towards RHV end cm/s, previously towards RHV end. Shunt (mid): 123.6 cm/s, previously 87.4 cm/s. Direction of flow istowards RHV end cm/s, previously towards RHV end. Shunt (distal/RHV end): 106.6 cm/s, previously 108 cm/s. Direction of flowis towards RHV end cm/s, previously towards RHV end. Right Hepatic Vein: 86.7 cm/s, previously 112 cm/s. Direction of flow isaway from TIPS. Splenic vein at Pancreas: Direction of flow is not visualized.. Inferior vena cava: Normal waveform. Hepatic Artery: Peak systolic velocity: Not visualized. IMPRESSION: 1. While the TIPS appears patent, there is decreased velocity in the mainportal vein, interval increase in velocity in the midportion of the TIPS,and interval recanalization of the paraumbilical vein. Findings raiseconcern for TIPS stenosis. 2. Heterogeneous, solid and cystic rounded mass in the left hepatic lobemeasuring up to 2.6 cm, new compared to prior exam. Contrast-enhancedabdominal MRI is recommended to evaluate for possibility of hepatocellularcarcinoma. 3. Cholelithiasis. Reference: Guillermo RY, Marilyn LESTER, Nicole WD, Naresh KM, Nelly SA, Pilgram TK.Doppler sonography findings associated with transjugular intrahepaticportosystemic shunt malfunction. AJR Am J Roentgenol. 1996.May;168(2):467-72. I have personally reviewed the images and the above interpretation andagree with the findings. [id number] Guicho Rosales MD IMG US ORDER CLAUDIO documented in this encounter Visit Diagnoses Diagnosis Other cirrhosis of liver (HCC-CMS)- Primary Other cirrhosis of liver (HCC-CMS) documented in this encounter Care Teams Wallpaper Installer Relationship Specialty Start Date End Date George Lou RPA [address] [place] [id number] PCP - General Family Medicine - Primary Care 09/21/22 documented as of this encounter
--- OUTSIDE RECORDS SUMMARY | 2023-12-21 12:05 | XMS_ITS | Encounter Summary ---
Author Organization [facility] [place] [address] Care Team Providers Care Front Office Associate Name Role Phone Laurie Wiggins MD Primary Care Provider [phone]- [phone] Encounter Details Date Type Department Care Team (Latest Contact Info) Description 06/25/2010 7:36 AM EDT - 06/25/2010 11:00 AM EDT Hospital Encounter [place] [address] Boo Browne MD [facility] [place] [address] Discharge Disposition: Home Social History Tobacco Use Types Packs/Day Years Used Date Smoking Tobacco: Never Assessed Sex and Gender Information Value Date Recorded Sex Assigned at Not on file Gender Identity Not on file Sexual Orientation Not on file documented as of this encounter Medications at Time of Discharge Medication Sig Dispensed Refills Start Date End Date methadone (DOLOPHINE) 10 mg tablet 06/25/2010 04/17/2012 nadolol (CORGARD) 40 mg tablet 40 MG = 1 Tablet(s), PO, as directed 06/25/2010 04/17/2012 OXYcodone (OXY-IR) 30 mg immediate release tablet 06/25/201008/2011 Milk Thistle 500 mg Cap 06/25/201007/11 Analia's Wort 300 mg Cap 06/25/2010 07/29/2010 spironolactone (ALDACTONE) 25 mg tablet 25 MG = 1 Tablet(s), PO, Once daily 06/25/2010 07/29/2010 omeprazole (PRILOSEC) 40 mg capsule 40 MG = 1 Capsule(s), PO, Twice daily 06/25/2010 04/17/2012 FERROUS SULFATE ORAL 06/25/2010 013 promethazine (PHENERGAN) 25 mg tablet 06/25/2010 07/29/2010 documented as of this encounter Plan of Treatment Upcoming Encounters Date Type Department Care Team (Late st Contact Info) Description 2024 8:15 AM EST Office Visit Dermatology at [place] [address] [facility] [place] [address] Jin Nunez MD [address] [facility], [place] [address] documented as of this encounter Visit Diagnoses Not on filedocumented in this encounter Care Teams Front Office Associate Relationship Specialty Start Date End Date Laurie Wiggins MD [address] [place] [address] PCP - General 03/03/10 02/12/19 documented as of this encounter
--- OUTSIDE RECORDS SUMMARY | 2023-12-21 12:05 | XMS_ITS | Encounter Summary ---
Author Organization [facility] Address [address] [place] [address] Care Team Providers Care Artificial Plastic Eye Maker Name Role Phone CarmineGeorge NORMA Primary Care Provider [phone] -[phone] Reason for Visit * Reason Onset Date Comments Appointment Related 09/26/2023 Encounter Details Date Type Department Care Team (Late st Contact Info) Description 09/26/2023 Telephone [facility] Interventional Radiology - [address] [phone] Guicho Rosales MD [address] [place] [address] [address] [place] [address] Appointment Related Social History Tobacco Use Types Packs/Day Years [...] No 08/09/2018 documented as of this encounter Miscellaneous Notes * Telephone Encounter - Lizy Hull - 09/26/2023 1410 EDT Called and left detailed voicemail for patient requesting return call to IR clinic at [phone] option 1 to confirm the following details October Appointment type: US liver Time: 11:15 am check in; 11:30am scan time Location: [address] [address] Followed by: October Appointment type: Follow up office visit Scheduled with: Marcel Bennett Time: 2:00pm Location: Interventional Radiology Clinic [facility], 3rd Floor documented in this encounter Plan of Treatment Upcoming Encounters Date Type Department Care Team (Late st Contact Info) Description 01/23/2024 10:00 EDT Office Visit [facility] General Surgery - [address] [address] Bon Gutierrez MD [address] [place] [address], [address] [place] [phone] 09/10/2024 10:00 EDT Appointment Shaina [address] [address] documented as of this encounter Visit Diagnoses Not on filedocumented in this encounter Care Teams Artificial Plastic Eye Maker Relationship Specialty Start Date End Date George Lou RPA [address] [place] [address] PCP - General Family Medicine - Primary Care 09/21/22 documented as of this encounter
--- OUTSIDE RECORDS SUMMARY | 2023-12-21 12:05 | XMS_ITS | Encounter Summary ---
Author Organization [facility] Address [address] [place] [id number] Care Team Providers Care Preparatory Technician Name Role Phone George Lou NORMA Primary Care Provider [phone] Reason for Referral * Radiology Services (Routine/Next Available) - Authorized Specialty Diagnoses / Procedures Referred By Contac t Referred To Contact Radiology Diagnoses Cirrhosis (HCC-CMS) Procedures MR ABDOMEN W WO CONTRAST Norbert Bennett PA-C [address] [place] [phone] [facility] Referral ID Status Reason Start Date Expiration Date V isits Requested Visits Authorized [id number] Authorized 09/21/2023 12/20/2023 1 1 Reason for Visit * Radiology Services (Routine/Next Available) - Authorized Specialty Diagnoses / Procedures Referred By Contac t Referred To Contact Radiology Diagnoses Cirrhosis (HCC-CMS) Procedures MR ABDOMEN W WO CONTRAST Norbert Bennett PA-C [address] [address] [facility] Referral ID Status Reason Start Date Expiration Date V isits Requested Visits Authorized [id number] Authorized 09/21/2023 12/20/2023 1 1 Encounter Details Date Type Department Care Team (Latest Contact Info) Description 11/17/2023 15:07 EDT - 11/17/2023 23:59 EDT Hospital Encounter [facility] [address] [place] [address] Cirrhosis ([facility]) Discharge Disposition: Home or Self Care Social History Tobacco Use Types Packs/Day Years [...] No 08/09/2018 documented as of this encounter Medications at Time of Discharge Medication Sig Dispensed Refills Start Date End Date lactulose 10 gram/15 mL (15 mL) solution Take 30 mL by mouth. Multivitamins with Minerals tablet tablet Take 1 Tab by mouth daily. pantoprazole (PROTONIX) 40 mg tabletIndications:upper GI bleed Take 1 Tab by mouth daily. 30 Tab 09/12/2018 rifAXImin (XIFAXAN) 550 mg tablet Take 550 mg by mouth 2 times daily. Obtaining through Patient Assistance Program ([employer]), approved on 05/31/19 x1 year. Phone number for PAP: [phone] semaglutide (OZEMPIC) subcutaneous pen Inject into the skin. Pt unsure of dose, but knows he takes weekly. Believes medication is Ozempic valsartan (DIOVAN) 80 mg tablet Take 160 mg by mouth daily. zinc sulfate (ZINCATE) 220 (50) mg capsule Take 1 Cap by mouth 3 times daily. 90 Cap 1 05/17/2019 documented as of this encounter Discharge Disposition Disposition Code Departure Means Destination Home or Self Care documented in this encounter Plan of Treatment Upcoming Encounters Date Type Department Care Team (Late st Contact Info) Description 01/23/2024 10:00 EDT Office Visit [facility] General Surgery - [facility] [address] [place], [place] [id number] Bon Gutierrez MD [address] [facility], [facility], [address] [place] [address] 09/10/2024 10:00 EDT Appointment [facility] [address] [place] [address] documented as of this encounter Procedures Procedure Name Priority Date/Time Associated Diagnosis Comments MR ABDOMEN W WO CONTRAST Routine 11/17/2023 18:13 EDT Cirrhosis (HCC-CMS) documented in this encounter Results * MR ABDOMEN W WO CONTRAST (11/17/2023 18:13 EDT) Anatomical Region Laterality Modality Body, Abdomen Magnetic Resonan ce 11/18/2023 10:3 7 EDT Addenda Addendum by Blake Fuentes MD on 11/25/2023 9:35 EDT Addendum: MRI of the abdomen with and without IV contrast was performed. [id number] Impressions 11/18/2023 10:37 EDT Lesion #1: Segment 4B, 2.6 cm, LR 5. Shrunken nodular liver compatible with cirrhosis without large varices, or ascites. Status post TIPS. Patency of the TIPS is better assessed on recent prior ultrasound. Incidental note of numerous pancreatic cystic lesions many of which likely communicate with the nondilated main pancreatic duct. 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 No worrisome features or high-risk stigmata are present. Consider ongoing surveillance with MRI abdomen with and without contrast with next follow-up in 1 year however may also be additionally moderate on abdominal MRI if there is ongoing routine MRI surveillance for hepatocellular carcinoma. [id number] Narrative 11/18/2023 10:37 EDT MR ABDOMEN W WO CONTRAST 11/17/2023 5:36 PM Signs and Symptoms/Comments: Noted left liver lobe mass; Liver lesion, > 1cm; Noted left liver lobe mass Technique: MRI of the abdomen was performed with and without contrast. Comparison: Most recent comparison to liver ultrasound on 11/17/2023 Findings: Liver: The liver is small measuring 11 cm in craniocaudal dimension and has a mild nodular capsular contour. No significant signal loss is present on T1 out of phase imaging. There are few scattered subcentimeter simple cysts. Additional focal liver lesions/observations as described below Treated Observations: No Additional Observations: Yes Observation #1: Location: Segment 4B, series 901 image 237, 301 image 13 Size: 26 mm Enhancement: None rim-like arterial phase hyperenhancement (901 237) Washout/Pseudocapsule: Washout with pseudocapsule (901:215) Ancillary Features: Mild elevated T2 signal intensity (701:22) and elevated signal intensity on high B value DWI (606:240) Change from prior: No change in size compared to recent prior ultrasound Li-RADS: LR-5 Portal Vein: The portal vein is patent. A TIPS extends from the right segmental portal vein to the right hepatic vein. Patency of the TIPS is better assessed on recent ultrasound duplex. Varices: No large varices present Ascites: None Bile Ducts: No dilated intra or extrahepatic bile ducts. Gallbladder: Small signal voids within the gallbladder neck compatible with cholelithiasis. No gallbladder wall thickening. Lower chest: No basilar mass, consolidation, or effusion. Spleen: Normal size and signal intensity. No focal lesion present. Pancreas: There are numerous cystic lesions throughout the pancreas and the head neck body and tail many of which appear to communicate with the nondilated main pancreatic duct. The largest measures approximately 1.5 cm in diameter. No enhancing mural septations or nodularity Adrenal glands: No adrenal lesion present. Kidneys and proximal ureters: The kidneys are symmetric and normal in size with prompt symmetric enhancement. There are scattered small intracortical and exophytic simple cysts measuring up to 1.5 cm in diameter no complex cystic or solid enhancing renal lesions are present. No hydronephrosis present. Bowel: No dilated small or large bowel present. Lymph nodes: No pathologically enlarged lymph nodes Vascular: The abdominal aorta is nonaneurysmal Abdominal wall: No bowel-containing ventral hernia. Musculoskeletal: No suspicious marrow signal abnormality present. There is a levoconvex curvature of the thoracolumbar spine. Localizer: No additional findings. Resulting Agency Comment [id number] Procedure Note Blake Fuentes MD - 11/18/2023 MR ABDOMEN W WO CONTRAST 11/17/2023 5:36 PM Signs and Symptoms/Comments: Noted left liver lobe mass; Liver lesion, >1cm; Noted left liver lobe mass Technique: MRI of the abdomen was performed with and without contrast. Comparison: Most recent comparison to liver ultrasound on 11/17/2023 Findings: Liver: The liver is small measuring 11 cm in craniocaudal dimension andhas a mild nodular capsular contour. No significant signal loss is presenton T1 out of phase imaging. There are few scattered subcentimeter simplecysts. Additional focal liver lesions/observations as described below Treated Observations: No Additional Observations: Yes Observation #1: Location: Segment 4B, series 901 image 237, 301 image 13 Size: 26 mm Enhancement: None rim-like arterial phase hyperenhancement (901 237) Washout/Pseudocapsule: Washout with pseudocapsule (901:215) Ancillary Features: Mild elevated T2 signal intensity (701:22) andelevated signal intensity on high B value DWI (606:240) Change from prior: No change in size compared to recent prior ultrasound Li-RADS: LR-5 Portal Vein: The portal vein is patent. A TIPS extends from the rightsegmental portal vein to the right hepatic vein. Patency of the TIPS isbetter assessed on recent ultrasound duplex. Varices: No large varices present Ascites: None Bile Ducts: No dilated intra or extrahepatic bile ducts. Gallbladder: Small signal voids within the gallbladder neck compatiblewith cholelithiasis. No gallbladder wall thickening. Lower chest: No basilar mass, consolidation, or effusion. Spleen: Normal size and signal intensity. No focal lesion present. Pancreas: There are numerous cystic lesions throughout the pancreas andthe head neck body and tail many of which appear to communicate with thenondilated main pancreatic duct. The largest measures approximately 1.5 cmin diameter. No enhancing mural septations or nodularity Adrenal glands: No adrenal lesion present. Kidneys and proximal ureters: The kidneys are symmetric and normal in sizewith prompt symmetric enhancement. There are scattered small intracorticaland exophytic simple cysts measuring up to 1.5 cm in diameter no complexcystic or solid enhancing renal lesions are present. No hydronephrosispresent. Bowel: No dilated small or large bowel present. Lymph nodes: No pathologically enlarged lymph nodes Vascular: The abdominal aorta is nonaneurysmal Abdominal wall: No bowel-containing ventral hernia. Musculoskeletal: No suspicious marrow signal abnormality present. There sandeep levoconvex curvature of the thoracolumbar spine. Localizer: No additional findings. IMPRESSION Lesion #1: Segment 4B, 2.6 cm, LR 5. Shrunken nodular liver compatible with cirrhosis without large varices, orascites. Status post TIPS. Patency of the TIPS is better assessed on recent priorultrasound. Incidental note of numerous pancreatic cystic lesions many of which likelycommunicate with the nondilated main pancreatic duct. These likelyrepresent branch duct IPMN. No worrisome features or high-risk stigmataare present. Consider ongoing surveillance with MRI abdomen with andwithout contrast with next follow-up in 1 year however may also beadditionally moderate on abdominal MRI if there is ongoing routine MRIsurveillance for hepatocellular carcinoma. [id number] Norbert Bennett PA-C [facility] MRI ORDERABLES documented in this encounter Visit Diagnoses Diagnosis Cirrhosis (HCC-CMS) Cirrhosis of liver without mention of alcohol documented in this encounter Administered Medications Inactive Administered Medications - up to 3 most recent administrations Medication Order MAR Action Action Date Dose Rate Site gadoterate meglumine solution 1-30 mL 1-30 mL, intravenous, Once in imaging, 1 dose, Starting on Dayan 11/17/23 at 1736, Until Dayan 11/17/23 at 1811, Routine, Imaging Protocol Orders Given 11/17/2023 18:11 EDT 19 mL documented in this encounter Orders Medications Ordered That Jamison ht Not Have Been Administered Count Last Ordered Date First Ordered Date gadoterate meglumine solution 1-30 mL 1 11/2023 documented in this encounter Care Teams Preparatory Technician Relationship Specialty Start Date End Date George Lou RPA [address] [place] [id number] PCP - General Family Medicine - Primary Care 09/21/22 documented as of this encounter
--- OUTSIDE RECORDS SUMMARY | 2023-12-21 12:05 | XMS_ITS | Encounter Summary ---
Author Organization [facility] Address [address] [place] [address] Care Team Providers Care Theatre Program Director Name Role Phone George Lou NORMA Primary Care Provider [phone] Encounter Details Date Type Department Care Team (Late st Contact Info) Description 10/17/2023 Orders Only [facility] Radiology - [place] [address] [place], [place] [phone] Joe Morrow MD [address] [place] [phone] Social History Tobacco Use Types Packs/Day Years [...] Info) Description 01/23/2024 10:00 EDT Office Visit [facility] General Surgery - [address] [phone] Bon Gutierrez MD [address] [facility], [address] [place] [phone] 09/10/2024 10:00 EDT Appointment Shaina Bergeron [address] [id number] [place], [place] [phone] documented as of this encounter Visit Diagnoses Not on filedocumented in this encounter Care Teams Theatre Program Director Relationship Specialty Start Date End Date George Lou RPA [address] [phone] PCP - General Family Medicine - Primary Care 09/21/22 documented as of this encounter
--- OUTSIDE RECORDS SUMMARY | 2023-12-21 12:05 | XMS_ITS | Clinical Summary ---
Author Organization [facility] Address [address] [place] [address] Care Team Providers Care Inside Sales Administrator Name Role Phone George Lou NORMA Primary Care Provider [phone] Allergies Active Allergy Reactions Criticality Noted Date Comments Zolpidem 03/14/2013 Sleep-driving Lisinopril Cough 08/21/2015 Medications Medication Sig Dispensed Refills Start Date End Date Status pantoprazole (PROTONIX) 40 mg tabletIndications:upp er GI bleed Take 1 Tab by mouth daily. 30 Tab 09/12/2018 Active lactulose 10 gram/15 mL (15 mL) solution Take 30 mL by mouth. Active valsartan (DIOVAN) 80 mg tablet Take 160 mg by mouth daily. Active rifAXImin (XIFAXAN) 550 mg tablet Take 550 mg by mouth 2 times daily. Obtaining through Patient Assistance Program ([employer]), approved on 05/31/19 x1 year. Phone number for PAP: [phone] Active zinc sulfate (ZINCATE) 220 (50) mg capsule Take 1 Cap by mouth 3 times daily. 90 Cap 1 05/17/2019 Active Multivitamins with Minerals tablet tablet Take 1 Tab by mouth daily. Active semaglutide (OZEMPIC) subcutaneous pen Inject into the skin. Pt unsure of dose, but knows he takes weekly. 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 Red blood cell antibody posi tive, compatible PRBC difficult to obtain 10/08/2013 Overview: Patient has RBC antibodies (anti-c, anti-E). Please give Blood Bank advance notice of possible need for RBC transfusion due to additional time needed to obtain compatible RBC units (19% of donors are randomly negative for the c and E antigens). History of hepatitis C 03/14/2013 Overview: ICD10 Update Auto Replacement Cirrhosis of liver (HCC-CMS) 03/14/2013 Resolved Problems Problem Noted Date Diagnosed Date Resolved Date Duodenal ulcer with hemorrhage 07/02/2018 07/02/2018 Acute blood loss anemia 06/18/201306/10 Encounters Date Type Department Care Team Description 11/25/2023 15:17 EDT - 11/25/2023 23:59 EDT Hospital Encounter [address] [address] Discharge Disposition: Home or Self Care 11/25/2023 Orders Only [facility]iology [address] [address] Echo Doe, RN Alcoholic cirrhosis of liver without ascites (HCC-CMS) (Primary Dx) 11/17/2023 15:07 EDT - 11/17/2023 23:59 EDT Hospital Encounter [facility] [address] [facility] [place] [address] Cirrhosis (HCC-CMS) Discharge Disposition: Home or Self Care 11/17/2023 11:03 EDT - 11/17/2023 15:06 EDT Hospital Encounter [facility] [address] [address] Cirrhosis (HCC-CMS) Discharge Disposition: Home or Self Care 11/07/2023 Telephone [facility] [address] [address] Guicho Rosales MD Appointment Related 10/17/2023 Orders Only [facility] - Main [address] [address] Joe Morrow MD 10/10/2023 14:00 EDT Office Visit [facility] [address] [id number] Norbert Bennett PA-C Cirrhosis (HCC-CMS) (Primary Dx) 10/10/2023 11:01 EDT - 10/10/2023 23:59 EDT Hospital Encounter [facility] Ul[facility] [address] [place], [place] [id number] Other cirrhosis of liver (HCC-CMS) Discharge Disposition: Home or Self Care 09/27/2023 Telephone [facility] Inter[facility] [address] [address] Guicho Rosales MD Appointment Related 09/26/2023 Telephone [facility] Inter[facility] [address] [address] Guicho Rosales MD Appointment Related from Last 3 Months Immunizations Name Administration Dates Next Due Influenza (whole) 11/09/2014 Influenza Vaccine Quad (AFLURIA) PF 0.5 ml IM (3 yrs+) 01/09/2014 Pneumococcal Polysaccharide (PPSV23) Vaccine (PNEUMOVAX-23) =>2YO SQ/IM 01/11/2014 Surgical History Surgery Date Site/Laterality Comments ESOPHAGEAL VARICE LIGATION 2008 or 2010 HERNIA REPAIR hiatal hernia BACK SURGERY 1974, 1980 SHOULDER SURGERY 20 years ago TIPS PROCEDURE 01-28-2014 Medical History Medical History Date Comments Anemia Depression Chronic kidney disease Hepatitis C Cirrhosis of liver (HCC-CMS) Esophageal varices (HCC-CMS) Chronic back pain Leg numbness Colon polyp Mental disorder Pancreatitis GIB (gastrointestinal bleeding) Family History Medical History Relation Comments Anesthesia Problem Brother Cancer Brother Alcohol Abuse Father Cancer Father Diabetes Father Breast Cancer Mother Cancer Mother Cancer Sister 1 Crohn's Disease Sister 1 Diabetes Sister 1 Anesthesia Problem Sister 2 Cancer Sister 2 Relation Status Comments Brother Father Mother Sister 1 Sister 2 Social History Tobacco Use Types Packs/Day Years [...] 8:12 EST Sexual Orientation Not on file Obstetrics History Last Filed Vital Signs Vital Sign Reading Time Taken Comments Blood Pressure 140/89 05/15/2019 1356 EST Pulse 98 05/15/2019 1356 EST Temperature 37 ??C (98.6 ??F) 09/12/2018 0818 EDT Respiratory Rate 16 09/12/2018 0818 EDT Oxygen Saturation 100% 04/24/2019 0901 EST Inhaled Oxygen Concentration - - Weight 96.6 kg (213 lb) 05/15/2019 1356 EST Height 157.5 cm (5' 2) 05/15/2019 1356 EST Body Mass Index 38.96 05/15/2019 1356 EST Plan of Treatment Upcoming Encounters Date Type Department Care Team (Late st Contact Info) Description 01/23/2024 10:00 EDT Office Visit [facility] - [address] [phone] Bon Gutierrez MD [address] [facility], [facility], [address] [place] [address] 09/10/2024 10:00 EDT Appointment Shaina Mejia [address] [place], [place] [id number] Health Maintenance Due Date Last Done Comments RSV Immunization ( o r 60+ Years) (1 - 1-dose 60+ series) 2013 Fall Risk Screening 2018 Advance Directive Review 09/16/2023 COVID-19 Vaccine (2022-2 4 season) 2023 Hepatitis C Screen Completed 06/28/2018, 1 04/19/2014, 11/21/2014, Additional history exists Medical Devices Implanted Type Area Hogshead Head Matcher Device Identifier Shelf Expiration Date Model / Serial / Lot Fluency Stent During Tips Procedure-Mr Cond To 1.5/3t Description:fluency stent al so placed during TIPS procedure. Use conditions above. (1.5t/3t, max sp. gr 2500G/cm, WB BURTON 2W/kg) 09/02/18 AlAKE Tips With Lifestar Stent-Mr Cond To 1.5/3t Description:s/p TIPS procedu re 01/2014-w/ placement of Lifestar stent, conditional to 3t, Max sp. Gr 720 G/cm, Normal mode only, WB BURTON 2W/kg if landmark above umbilicus, max WB BURTON 1W/kg below umbilicus, 09/02/18 [facility] Procedures Procedure Name Priority Date/Time Associated Diagnosis Comments TUMOR BOARD RADIOLOGY CONSULT LIVER Routine 11/25/2023 15:17 EDT MR ABDOMEN W WO CONTRAST Routine 11/17/2023 18:13 EDT Cirrhosis (HCC-CMS) US LIVER/ABDOMEN VISCERAL DUPLEX Routine 11/17/2023 14:23 EDT Cirrhosis (HCC-CMS) US LIVER/ABDOMEN VISCERAL DUPLEX Routine 10/10/2023 12:17 EDT Other cirrhosis of liver (HCC-CMS) HCV RNA DETECT QUANT Routine 06/28/2018 6:56 EDT from Last 3 Months or Most Recently Relevant to Health Maintenance Results * TUMOR BOARD RADIOLOGY CONSULT LIVER (11/25/2023 15:17 EDT) Anatomical Region Laterality Modality Other 12/08/2023 7:11 EDT Narrative 12/08/2023 7:11 EDT TUMOR BOARD IMAGING REVIEW Tumor board: Liver tumor board Date of tumor board: 12/07/2023 Indication: Liver lesions. ?? Imaging studies reviewed: Abdominal MRI with and without contrast 11/17/2023 Comments: A focused interpretation for the purpose of tumor board/MDC discussion was performed for the imaging exams listed above. [id number] Resulting Agency Comment [id number] Procedure Note Cole Leblanc MD - 12/08/2023 TUMOR BOARD IMAGING REVIEW Tumor board: Liver tumor board Date of tumor board: 12/07/2023 Indication: Liver lesions. Imaging studies reviewed: Abdominal MRI with and without contrast 11/17/2023 Comments: A focused interpretation for the purpose of tumor board/MDC discussion wasperformed for the imaging exams listed above. [id number] Filipe Sarmiento MD IMG CT ORDERABLES * MR ABDOMEN W WO CONTRAST (11/17/2023 18:13 EDT) Anatomical Region Laterality Modality Body, Abdomen Magnetic Resonan ce 11/18/2023 10:3 7 EDT Addenda Addendum by Blake Fuentes MD on 11/25/2023 9:35 EDT Addendum: MRI of the abdomen with and without IV contrast was performed. [id number] Impressions 11/18/2023 10:37 EDT Lesion #1: Segment [...] ongoing routine MRI surveillance for hepatocellular carcinoma. [id number] Narrative 11/18/2023 10:37 EDT MR ABDOMEN W [...] Localizer: No additional findings. Resulting Agency Comment [id number] Procedure Note Blake Fuentes MD - 11/18/2023 [...] is ongoing routine MRIsurveillance for hepatocellular carcinoma. [id number] Norbert Bennett PA-C IMG MRI ORDERABLES * US ABDOMEN LIMITED WITH COMPLETE DUPLEX (11/17/2023 14:23 EDT) Anatomical Region Laterality Modality Abdomen Ultrasound 11/19/2023 13:2 9 EDT Impressions 11/19/2023 13:29 EDT FINDINGS/ IMPRESSION: Liver: The liver measures 12.4 cm, which is normal. Nodular contour. Redemonstrated left hepatic lobe mass measuring up to 2.9 cm. There is a small 0.5 cm cyst. Free Fluid: No free fluid is present in the right upper quadrant of the abdomen. Varices: None identified. Paraumbilical Vein: Recanalized paraumbilical vein is present. Other findings: Spleen is enlarged measuring 15.3 cm. DOPPLER: TECHNIQUE: Color and spectral Doppler evaluation of the portal veins, TIPS, hepatic veins, splenic vein, superior mesenteric vein, hepatic artery, and inferior vena cava was performed. FINDINGS: Main Portal Vein: 30 cm/s, previously 28.9 cm/s. Direction of flow is towards TIPS, previously towards TIPS. Right Portal Vein: Not visualized. Left Portal Vein: Not visualized. Shunt (proximal/portal vein end): 73.4 cm/s, previously 89.5 cm/s. Direction of flow is towards RHV end cm/s, previously towards RHV end. Shunt (mid): 92.6 cm/s, previously 123.6 cm/s. Direction of flow is away from RHV end cm/s, previously towards RHV end. Shunt (distal/RHV end): 72 cm/s, previously 107 cm/s. Direction of flow is away from RHV end cm/s, previously towards RHV end. Right Hepatic Vein: 100.5 cm/s, previously 86.7 cm/s. Direction of flow is away from TIPS. Splenic vein at Pancreas: Direction of flow is towards TIPS. Inferior vena cava: Normal waveform. Hepatic Artery: Peak systolic velocity: 67.4 cm/s. Resistive index: 0.8. IMPRESSION: 1. ??Persistent lower velocity in main portal vein and in shunt velocities, change in direction of flow at RHV end is concerning for TIPS malfunction according to US criteria. 2. ??A 2.6 cm heterogeneous left hepatic lobe mass. Further evaluation with MRI abdomen with contrast is recommended. 3. ??Hepatic cirrhosis morphology. Splenomegaly. ?? Reference: Guillermo RY, Marilyn LESTER, Nicole WD, Naresh KM, Nelly SA, Pilpaula TK. Doppler sonography findings associated with transjugular intrahepatic portosystemic shunt malfunction. AJR Am J Roentgenol. 1996. May;168(2):467-72. [id number] Narrative 11/19/2023 13:29 EDT US ABDOMEN LIMITED WITH COMPLETE DUPLEX ??11/17/2023 1:41 PM SIGNS AND SYMPTOMS/COMMENTS: Cirrhosis COMPARISONS: Ultrasound abdomen from 10/10/2023 GRAYSCALE: TECHNIQUE: Grayscale ultrasound images of the liver were obtained. INDICATION FOR GRAYSCALE: Evaluate for structural abnormality Resulting Agency Comment [id number] Procedure Note Madelaine Francois MD - 11/19/2023 US ABDOMEN LIMITED WITH COMPLETE DUPLEX 11/17/2023 1:41 PM SIGNS AND SYMPTOMS/COMMENTS: Cirrhosis COMPARISONS: Ultrasound abdomen from 10/10/2023 GRAYSCALE: TECHNIQUE: Grayscale ultrasound images of the liver were obtained. INDICATION FOR GRAYSCALE: Evaluate for structural abnormality IMPRESSION FINDINGS/ IMPRESSION: Liver: The liver measures 12.4 cm, which is normal. Nodular contour.Redemonstrated left hepatic lobe mass measuring up to 2.9 cm. There is asmall 0.5 cm cyst. Free Fluid: No free fluid is present in the right upper quadrant of theabdomen. Varices: None identified. Paraumbilical Vein: Recanalized paraumbilical vein is present. Other findings: Spleen is enlarged measuring 15.3 cm. DOPPLER: TECHNIQUE: Color and spectral Doppler evaluation of the portal veins,TIPS, hepatic veins, splenic vein, superior mesenteric vein, hepaticartery, and inferior vena cava was performed. FINDINGS: Main Portal Vein: 30 cm/s, previously 28.9 cm/s. Direction of flow istowards TIPS, previously towards TIPS. Right Portal Vein: Not visualized. Left Portal Vein: Not visualized. Shunt (proximal/portal vein end): 73.4 cm/s, previously 89.5 cm/s.Direction of flow is towards RHV end cm/s, previously towards RHV end. Shunt (mid): 92.6 cm/s, previously 123.6 cm/s. Direction of flow is awayfrom RHV end cm/s, previously towards RHV end. Shunt (distal/RHV end): 72 cm/s, previously 107 cm/s. Direction of flow isaway from RHV end cm/s, previously towards RHV end. Right Hepatic Vein: 100.5 cm/s, previously 86.7 cm/s. Direction of flow isaway from TIPS. Splenic vein at Pancreas: Direction of flow is towards TIPS. Inferior vena cava: Normal waveform. Hepatic Artery: Peak systolic velocity: 67.4 cm/s. Resistive index: 0.8. IMPRESSION: 1. Persistent lower velocity in main portal vein and in shunt velocities,change in direction of flow at RHV end is concerning for TIPS malfunctionaccording to US criteria. 2. A 2.6 cm heterogeneous left hepatic lobe mass. Further evaluation withMRI abdomen with contrast is recommended. 3. Hepatic cirrhosis morphology. Splenomegaly. Reference: Guillermo RY, Marilyn LESTER, Nicole WD, Naresh KM, Nelly SA, Pilpaula TK.Doppler sonography findings associated with transjugular intrahepaticportosystemic shunt malfunction. AJR Am J Roentgenol. 1996.May;168(2):467-72. [id number] Norbert Bennett PA-C [facility] US ORDERABLES * US ABDOMEN LIMITED WITH LIMITED DUPLEX [...] Nicole WD, Naresh KM, Nelly SA, Pilgram TK. Doppler sonography findings associated with transjugular intrahepatic portosystemic shunt malfunction. AJR Am J Roentgenol. 1996. May;168(2):467-72. I have personally reviewed the images and the above interpretation and agree with the findings. [id number] Narrative 10/10/2023 14:58 EDT US ABDOMEN LIMITED WITH LIMITED DUPLEX ??10/10/2023 11:20 AM SIGNS AND SYMPTOMS/COMMENTS: TIPS. Need ultrasound surveillance to assess for patency and stenosis.;K74.69:Other cirrhosis of liver (HCC-CMS) COMPARISONS: TIPS ultrasound from 09/21/2022 and 09/08/2021 GRAYSCALE: TECHNIQUE: Grayscale ultrasound images of the liver were obtained. INDICATION FOR GRAYSCALE: Evaluate for structural abnormality Resulting Agency Comment [id number] Procedure Note Selvin Rowe MD - 10/10/2023 [...] 3. Cholelithiasis. Reference: Guillermo RY, Marilyn LESTER, Nicoel WD, Naresh KM, Nelly SA, Pilgram TK.Doppler sonography findings associated with transjugular intrahepaticportosystemic shunt malfunction. AJR Am J Roentgenol. 1996.May;168(2):467-72. I have personally reviewed the images and the above interpretation andagree with the findings. [id number] Guicho Rosales MD [facility] US ORDER CLAUDIO * HCV RNA DETECT QUANT (06/28/2018 6:56 EDT) HCV RNA Detect Quant Undetected Undetected IU/mL 06/29/2018 16:21 EDT [facility] Comment: Reference Range: ??Undetected The quantification range of this assay is 15 IU/mL to 100,000,000 IU/mL. Testing was performed by the Mili Ampliprep/Mili TaqMan HCV v2.0 ([employer] 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 Patient The Goals of Further Therapy are: 2-Life Prolongation but w/o Burdensome Treatment Modalities * Limitation of Treatment Date Activated Date Inactivated Comments 09/06/2018 19:01 09/06/2018 21:38 Question Answer Comments CPR for spontaneous arrest: Withhold CPR for arrest during procedure: Withhold Intubation/Mechanical ventilation: Withhold Medications for arrhythmia: Provide Reason for Decision Includes: 2-Written documentation of patient's wishes (Advance Directives/Agent) Who Participated in the Discussion? Patient The Goals of Further Therapy are: 2-Life Prolongation but w/o Burdensome Treatment Modalities * Limitation of Treatment Date Activated Date Inactivated Comments 08/09/2018 20:38 09/06/2018 19:01 Question Answer Comments CPR for spontaneous arrest: Provide CPR for arrest during procedure: Provide Intubation/Mechanical ventilation: Provide Medications for arrhythmia: Provide Reason for Decision Includes: 2-Written documentation of patient's wishes (Advance Directives/Agent) Who Participated in the Discussion? Patient The Goals of Further Therapy are: 2-Life Prolongation but w/o Burdensome Treatment Modalities * Limitation of Treatment Date Activated Date Inactivated Comments 06/24/2018 16:09 07/02/2018 15:52 Question Answer Comments CPR for spontaneous arrest: Withhold CPR for arrest during procedure: Withhold Intubation/Mechanical ventilation: Withhold Medications for arrhythmia: Withhold Reason for Decision Includes: 1-Fully in formed patient believes the expected burdens of treatment are greater Who Participated in the Discussion? Patient The Goals of Further Therapy are: 2-Life Prolongation but w/o Burdensome Treatment Modalities * Limitation of Treatment Date Activated Date Inactivated Comments 01/22/2014 15:35 01/29/2014 13:58 Question Answer Comments CPR for spontaneous arrest: WITHHOLD CPR for arrest during procedure: WITHHOLD Intubation/Mechanical ventilation: WITHHOLD Medications for arrhythmia: PROVIDE Reason for Decision Includes: 1-Fully in formed patient believes the expected burdens of treatment are greater Who Participated in the Discussion? 1. Patient Care Teams Inside Sales Administrator Relationship Specialty Start Date End Date George Lou RPA [address] [place] [address] PCP - General Family Medicine - Primary Care 09/21/22
--- OUTSIDE RECORDS SUMMARY | 2023-12-21 12:05 | XMS_ITS | Encounter Summary ---
[place] [address] Care Team Providers Care Log Data Technician Name Role Phone Unavailable Primary Care Provider Unavailabl e Encounter Details Date Type Department Care Team (Late st Contact Info) Description 02/16/2010 9:30 AM EST Procedure [place] [address] Brody Beebe MD [facility] [place] [address] Social History Tobacco Use Types Packs/Day Years [...] 8:15 AM EST Office Visit Dermatology at [place] [address] [place] [id number] Jin Nunez MD [address], [place] [address] documented as of this encounter Visit Diagnoses Not on filedocumented in this encounter
--- OUTSIDE RECORDS SUMMARY | 2023-12-21 12:05 | XMS_ITS | Encounter Summary ---
Author Organization [facility] [place] [address] Care Team Providers Care Release Specialist Name Role Phone George Lou Primary Care Provider [phone] Encounter Details Date Type Department Care Team (Late st Contact Info) Description 02/15/2010 Orders [place] [address] Ernesto Cardona MD [facility] [place] [address] Social History Tobacco Use Types Packs/Day Years [...] 8:15 AM EST Office Visit Dermatology at [place] [address] [place] [address] Jin Nunez MD [address], [place] [address] documented as of this encounter Procedures Procedure Name Priority Date/Time Associated Diagnosis Comments SURGICAL PATHOLOGY REPORT Routine 02/15/2010 7:33 AM EST documented in this encounter Results * Surgical Pathology Report (02/15/2010 7:33 AM EST) Surgical Pathology Report [id number] ? Location: 1EST; 0134; A The signing pathologist has (i) examined the relevant preparation(s) for the specimen(s) and (ii) rendered or confirmed the diagnosis(es). . 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 Antral bx, formalin. Qty/Size/Weight: ?Three, averaging 0.2 x 0.2 x 0.1 cm. Tissue Description: ?? Soft, ames tissues. Sections/Processin g: ??(T1) ??vms/SHB Microscopic Description Slides reviewed, microscopic description not recorded. Diagnosis Gastric antrum, biopsy: ?? Gastric antral mucosa with moderate to severe reactive/chemical ?? gastropathy-like changes (see Note). ?? NOTE: ??The morphological features of GAVE overlap with those of reactive ?? gastropathy, and in the absence of the fibrin thrombi seen in GAVE, the ?? two conditions may be morphologically indistinguishable. ??Correlation ?? with clinical and endoscopic findings is necessary. CR-0 02/17/10 VMS 02/17/10 Verified by: ? Nicholas LESTER, Abraham ?Pathologist ?(Electronic Signature) The attending pathologist whose signature appears on this report has reviewed all diagnostic slides and has edited the gross and/or microscopic portion of the report in rendering the final pathologic diagnosis. THEO ARCOS 02/15/2010 7:33 AM EST Ernesto Cardona MD PATHOLOGY/CYTOLOGY O BRODYERACINDY THEO POOLENNIUM documented in this encounter Visit Diagnoses Not on filedocumented in this encounter Care Teams Release Specialist Relationship Specialty Start Date End Date George Lou PA [address] [place] [address] PCP - General Internal Medicine 11/12/22 documented as of this encounter
--- OUTSIDE RECORDS SUMMARY | 2023-12-21 12:05 | XMS_ITS | Encounter Summary ---
[place] [address] Care Team Providers Care Edi Coordinator Name Role Phone Laurie Wiggins MD Primary Care Provider [phone] Encounter Details Date Type Department Care Team (Late st Contact Info) Description 06/25/2010 8:00 AM EDT Procedure visit [place] [address] Boo Browne MD [facility] [place] [address] Social History Tobacco Use Types Packs/Day Years [...] EST Office Visit Dermatology at [place] [address] [place] [phone] Jin Nunez MD [address], [place] [address] documented as of this encounter Visit Diagnoses Not on filedocumented in this encounter Care Teams Edi Coordinator Relationship Specialty Start Date End Date Laurie Wiggins MD [address] [place] [address] PCP - General 03/03/10 02/12/19 documented as of this encounter
--- OUTSIDE RECORDS SUMMARY | 2023-12-21 12:05 | XMS_ITS | Encounter Summary ---
[place] [address] Care Team Providers Care Pharmacy Data Analyst Name Role Phone Laurie Wiggins MD Primary Care Provider +1- [phone] Encounter Details Date Type Department Care Team (Late st Contact Info) Description 08/24/2010 Orders [place] [address] Paty Pedraza LAYOUT WORKER [facility] [place] [address] Cirrhosis (Primary Dx) Social History Tobacco Use [...] 8:15 AM EST Office Visit Dermatology at [place] [address] [place] [address] Jin Nunez MD [address], [place] [address] documented as of this encounter Results * US abdomen complete (01/29/2011 10:06 AM EDT) Anatomical Region Laterality Modality Abdomen, Vascular Ultrasound 01/29/2011 10:0 6 AM EDT Narrative 01/29/2011 10:17 AM EDT ?Abdominal Report ? (Signed Final 01/29/2011 10:17 am) Patient Info ID: ? [id number] ? : ??[birth year] (55 yrs) Name: ? ALMA CARBALLO ? Visit Date: 01/29/2011 09:56 am Performed By Performed By: ?MANDEEP Raza ??Janie Associate: ? Elle LESTER, Leonardo Junior Attending: ? Nicolasa LESTER, Dahlia Junior Referred By: ? AKIKO Morris APRN Accession#: ?[id number] Service(s) Provided [facility] - Abdominal Complete Survey - [id number] ? [id number] Indications Cirrhosis, screen for HCC ----- Liver [...] Final 01/29/2011 10:17 am) Patient Info ID: [id number] : [birth year] (55 yrs) Name: ALMA CARBALLO Visit Date: 01/29/2011 09:56 am Performed By Performed By: MANDEEP Raza Associate: Elle LESTER, Leonardo Junior Attending: Dahlia Baldwin MD Referred By: AKIKO Morris APRN Service(s) Provided [facility] - Abdominal Complete Survey - [id number] Indications Cirrhosis, screen for HCC ----- Liver [...] alcohol documented in this encounter Care Teams Pharmacy Data Analyst Relationship Specialty Start Date End Date Laurie Wiggins MD [address] [place] [address] PCP - General 03/03/10 02/12/19 documented as of this encounter
--- OUTSIDE RECORDS SUMMARY | 2023-12-21 12:05 | XMS_ITS | Encounter Summary ---
[place] [address] Care Team Providers Care Unix Developer Name Role Phone Laurie Wiggins MD Primary Care Provider +1- [phone] Reason for Visit * Reason Comments Cirrhosis Hepatitis C Encounter Details Date Type Department Care Team (Late st Contact Info) Description 07/29/2010 11:00 AM EDT Follow-Up [place] [address] Paty Pedraza APRN [facility] [place] [address] Cirrhosis (Primary Dx) Discharge Disposition: Home Social [...] Sign Reading Time Taken Comments Blood Pressure 164/84 07/29/2010 11:24 AM EDT Pulse 60 07/29/2010 11:24 AM EDT Temperature - - Respiratory Rate - - Oxygen Saturation - - Inhaled Oxygen Concentration - - Weight 87.6 kg (193 lb 3.2 oz) 07/29/2010 11:24 AM EDT Height 160 cm (5' 3) 07/29/2010 11:24 AM EDT Body Mass Index 34.22 07/29/2010 11:24 AM EDT documented in this encounter Patient Instructions * Patient Instructions* RayPaty APRN - 07/29/2010 11:46 AM EDT Please get labs prior to your next appointment with me, I will have an order waiting for you in thelab. documented in this encounter Progress Notes * Paty Pedraza APRN - 07/29/2010 11:30 AM EDT Subjective: Patient ID: Alonzo Urbina is a 55 y.o. male. HPI Mr. Urbina is a 54 year old male with cirrhosis secondary to [...] underwent serial variceal band ligation ( at [facility])and was banded in December 2007 (6 bands), January 2008 ( 4 bands) and April of 2008 (3 bands). 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 He denies any further gi tract bleeding. He continues to be fatigued. 03/20/2010 AFP 5.6, wbc 3.1, hg 10, [...] duodenum. Review of Systems Constitutional: Negative for fever and chills. Respiratory: Negative for cough and shortness of breath. Cardiovascular: Negative for chest pain. Gastrointestinal: Positive for nausea. Negative for vomiting, abdominal pain, diarrhea and blood instool. Objective: Physical Exam Constitutional: He is oriented to person, place, and time. He appears well- developed and well-nourished. Eyes: Pupils are equal, round, and reactive to light. Neck: Neck supple. Cardiovascular: Normal rate, regular rhythm and normal heart sounds. Pulmonary/Chest: Effort normal. No respiratory distress. Abdominal: Soft. He exhibits no ascites. There is no hepatosplenomegaly. A hernia is present. Musculoskeletal: He exhibits no edema. Neurological: He is alert and oriented to person, place, and time. Skin: Skin is warm and dry. Psychiatric: He has a normal mood and affect. Assessment and Plan: 1. Cirrhosis, he will schedule a screening abdominal ultrasound for HCC surveillance. He will follow up with me in six months and will get a cmp, cbc, INR and AFP prior to that visit. 2. Portal hypertension he will continue on the beta misbah, last EGD did not identify large varices or significant GAVE. He is not currently bleeding. I will see him back in six months. documented in this encounter Plan of Treatment Upcoming Encounters Date Type Department Care Team (Late st Contact Info) Description 2024 8:15 AM EST Office Visit Dermatology at [place] [address] [place] [address] Jin Nunez MD [address], [place] [address] Scheduled Orders Name Type Priority Associated Diagnoses Orde r Schedule CBC (with Diff) Lab Routine Cirrhosis Expected: 01/09/2011, Expires: 01/29/2012 Comprehensive metabolic panel (non-fasting) Lab Routine Cirrhosis Expected: 01/09/2011 (Approximate), Expires: 01/29/2012 Prothrombin Time Lab Routine Cirrhosis Expected: 01/09/2011, Expires: 01/29/2012 AFP tumor marker Lab Routine Cirrhosis Expected: 01/09/2011, Expires: 01/29/2012 documented as of this encounter Visit Diagnoses Diagnosis Cirrhosis- Primary Cirrhosis of liver without mention of alcohol documented in this encounter Care Teams Unix Developer Relationship Specialty Start Date End Date Laurie Wiggins MD [address] [place] [address] PCP - General 03/03/10 02/12/19 documented as of this encounter
--- OUTSIDE RECORDS SUMMARY | 2023-12-21 12:05 | XMS_ITS | Encounter Summary ---
Author Organization [facility] Address [address] [place] [address] Care Team Providers Care Panel Machine Setter Name Role Phone George Lou NORMA Primary Care Provider +1 -[phone] Reason for Referral * Radiology Services (Routine/Next Available) - Authorization Not Required Specialty Diagnoses / Procedures Referred By Contac t Referred To Contact Diagnoses Cirrhosis (HCC-CMS) Procedures US LIVER/ABDOMEN VISCERAL DUPLEX US LIVER WITH ELASTOGRAPHY Carlos A Escobedo PA-C [address] [place] [phone] [facility] Referral ID Status Reason Start Date Expiration Date Visits Requested Visits Authorized [id number] Authorization Not Required 10/14/2023 1 1 * Radiology Services (Routine/Next Available) - Authorized Specialty Diagnoses / Procedures Referred By Contac t Referred To Contact Radiology Diagnoses Cirrhosis (HCC-CMS) Procedures MR ABDOMEN W WO CONTRAST Carlos A Escobedo PA-C [address] [address] [facility] Referral ID Status Reason Start Date Expiration Date V isits Requested Visits Authorized [id number] Authorized 09/21/2023 12/20/2023 1 1 * Radiology Services (Routine/Next Available) - Authorization Not Required Specialty Diagnoses / Procedures Referred By Contreinaldo t Referred To Contact Diagnoses Cirrhosis (HCC-CMS) Procedures US LIVER/ABDOMEN VISCERAL DUPLEX US LIVER WITH ELASTOGRAPHY Carlos A Escobedo PA-C [address] [place] [phone] [facility] Referral ID Status Reason Start Date Expiration Date Visits Requested Visits Authorized [id number] Authorization Not Required 10/10/2023 1 1 Reason for Visit * Reason Comments IR Procedure Follow-up Encounter Details Date Type Department Care Team (Late st Contact Info) Description 10/10/2023 14:00 EDT Office Visit [facility] Interventional Radiology - [address] [id number] Carlos A Escobedo PA-C [address] [place] [phone] Cirrhosis (HCC-CMS) (Primary Dx) Social History Tobacco Use [...] No 08/09/2018 documented as of this encounter Progress Notes * Carlos A Escobedo PA-C - 10/10/2023 1400 EDT Patient ID: Alonzo Urbina is an 68 y.o. male. No chief complaint on file. HPI: Mr. Alonzo Urbina is here 9 years post TIPS. He has done very well. He has no complaint. Has great energy level is excellent and he has no confusion. He is not taking a laxative. 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 No alcohol reported for over 4 years. Problem List Patient Active Problem List Diagnosis History of hepatitis C Cirrhosis of liver (HCC-CMS) Red blood cell antibody positive, compatible PRBC difficult to obtain Hepatic cirrhosis due to chronic hepatitis C infection (HCC-CMS) (HCC) Hematemesis Rectal bleeding Depression Substance abuse (HCC-CMS) (HCC) Suicidal ideation Past Medical History Past Medical History: Diagnosis Date Anemia Chronic back pain Chronic kidney disease Cirrhosis of liver (HCC-CMS) Colon polyp Depression Esophageal varices (HCC-CMS) GIB (gastrointestinal bleeding) Hepatitis C Leg numbness Mental disorder Pancreatitis Past Surgical History Past Surgical History: Procedure Laterality Date BACK SURGERY 1973, 1980 ESOPHAGEAL VARICE LIGATION 2008 or 2009 HERNIA REPAIR hiatal hernia SHOULDER SURGERY 20 years ago TIPS PROCEDURE 01-28-2014 Family History Family History Problem Relation Age of Onset Cancer Mother Breast Cancer Mother Alcohol Abuse Father Cancer Father Diabetes Father Cancer Sister Crohn's Disease Sister Diabetes Sister Cancer Brother Anesthesia Problem Brother Cancer Sister Anesthesia Problem Sister Social Social History Social History Tobacco Use Smoking status: Never Smokeless tobacco: Never Substance Use Topics Alcohol use: No Drug use: No Medications Taking Outpatient Medications Marked as Taking for the 09/21/22 encounter (Appointment) with Guicho Rosales MD Medication Sig Dispense Refill semaglutide (OZEMPIC) subcutaneous pen Inject into the skin. Pt unsure of dose, but knows he takes weekly. Believes medication is Ozempic Allergies Allergies Allergen Reactions Ambien [Zolpidem] Sleep-driving Lisinopril Cough ROS - See HPI Objective: There were no vitals taken for this visit. Physical Exam deferred Assessment: Patent TIPS. Doing well 9 years post TIPS. He states he has been sober for the past 4 years. Plan: Dr. Rosales reviewed imaging and reported possible TIPS stenosis. Dr. Rosales wishes to complete a duplex U/S in one month as well as perform a liver MRI to evaluate a possible lesion. Will call and discuss with patient. I spent a total of 20 minutes in face to face time with this patient and 15 notes of that time was spent in disease review, image review, counseling, treatment planning and coordination of care as described in the progress note. documented in this encounter Miscellaneous Notes * Addendum Note - Carlos A Escobedo PA-C - 10/10/2023 1400 EDTAddended by: CARLOS A ESCOBEDO on: 10/14/2023 10:50 Modules accepted: Orders * Addendum Note - Carlos A Escobedo PA-C - 10/10/2023 1400 EDTAddended by: CARLOS A ESCOBEDO on: 10/14/2023 11:00 Modules accepted: Orders documented in this encounter Plan of Treatment Upcoming Encounters Date Type Department Care Team (Late st Contact Info) Description 01/23/2024 10:00 EDT Office Visit [facility] General Surgery - [address] [phone] Bon Gutierrez MD [address] [facility] [place] [address] 09/10/2024 10:00 EDT Appointment Shaina Mejia [address] [place] [address] Scheduled Orders Name Type Priority Associated Diagnoses Orde r Schedule US LIVER/ABDOMEN VISCERAL DUPLEX Imaging Routine Cirrhosis (HCC-CMS) Expected: 10/09/2024 (Approximate), Expires: 04/11/2025 documented as of this encounter Results * MR ABDOMEN W WO CONTRAST (11/17/2023 18:13 EDT) Anatomical Region Laterality Modality Body, Abdomen Magnetic Resonan ce 11/18/2023 10:3 7 EDT Addenda Addendum by Blake Fuentes MD on 11/25/2023 9:35 EDT Addendum: MRI of the abdomen with and without IV contrast was performed. [id number] Impressions 11/18/2023 10:37 EDT Lesion #1: Segment [...] ongoing routine MRI surveillance for hepatocellular carcinoma. [id number] Narrative 11/18/2023 10:37 EDT MR ABDOMEN W [...] Localizer: No additional findings. Resulting Agency Comment [id number] Procedure Note Blake Fuentes MD - 11/18/2023 [...] is ongoing routine MRIsurveillance for hepatocellular carcinoma. [id number] Carlos A Escobedo PA-C IMRoger MRI ORDERABLES * US ABDOMEN LIMITED WITH [...] malfunction. AJR Am J Roentgenol. 1996. May;168(2):467-72. [id number] Narrative 11/19/2023 13:29 EDT US ABDOMEN LIMITED WITH COMPLETE DUPLEX ??11/17/2023 1:41 PM SIGNS AND SYMPTOMS/COMMENTS: Cirrhosis COMPARISONS: Ultrasound abdomen from 10/10/2023 GRAYSCALE: TECHNIQUE: Grayscale ultrasound images of the liver were obtained. INDICATION FOR GRAYSCALE: Evaluate for structural abnormality Resulting Agency Comment [id number] Procedure Note Madelaine Francois MD - 11/19/2023 [...] LESTER, Nicole WD, Naresh KM, Nelly SA, Conor TK.Doppler sonography findings associated with transjugular intrahepaticportosystemic shunt malfunction. AJR Am J Roentgenol. 1996.May;168(2):467-39. [id number] Carlos A Escobedo PA-C G US ORDERABLES documented in this encounter Visit Diagnoses Diagnosis Cirrhosis (HCC-CMS)- Primary Cirrhosis of liver without mention of alcohol Cirrhosis (HCC-CMS) Cirrhosis of liver without mention of alcohol Cirrhosis (HCC-CMS) Cirrhosis of liver without mention of alcohol documented in this encounter Care Teams Panel Machine Setter Relationship Specialty Start Date End Date George Lou RPA [address] [facility] [place] [address] [place] [address] PCP - General Family Medicine - Primary Care 09/21/22 documented as of this encounter
--- OUTSIDE RECORDS SUMMARY | 2023-12-21 12:05 | XMS_ITS | Encounter Summary ---
Author Organization [facility] Address [address] [place] [address] Care Team Providers Care Business Project Analyst Name Role Phone George Lou [facility] Primary Care Provider [phone] [phone] Reason for Referral * Radiology Services (Routine/Next Available) - Authorization Not Required Specialty Diagnoses / Procedures Referred By Contac t Referred To Contact Diagnoses Cirrhosis (HCC-CMS) Procedures US LIVER/ABDOMEN VISCERAL DUPLEX US LIVER WITH ELASTOGRAPHY Norbert Bennett PA-C [address] [place] [phone] [facility] Referral ID Status Reason Start Date Expiration Date Visits Requested Visits Authorized [id number] Authorization Not Required 10/14/2023 1 1 Reason for Visit * Radiology Services (Routine/Next Available) - Authorization Not Required Specialty Diagnoses / Procedures Referred By Contac t Referred To Contact Diagnoses Cirrhosis (HCC-CMS) Procedures US LIVER/ABDOMEN VISCERAL DUPLEX US LIVER WITH ELASTOGRAPHY Norbert Bennett PA-C [address] [address] [facility] Referral ID Status Reason Start Date Expiration Date Visits Requested Visits Authorized [id number] Authorization Not Required 10/14/2023 1 1 Encounter Details Date Type Department Care Team (Latest Contact Info) Description 11/17/2023 11:03 EDT - 11/17/2023 15:06 EDT Hospital Encounter [facility] Radiology [facility] [place] [address] [place] [address] Cirrhosis ([facility]) Discharge Disposition: Home or Self Care Social [...] times daily. Obtaining through Patient Assistance Program (Surveypal), approved on 05/31/19 x1 year. Phone number for PAP: [phone] semaglutide (OZEMPIC) subcutaneous pen Inject into the [...] Info) Description 01/23/2024 10:00 EDT Office Visit [facility] General Surgery - [facility] [address] [place], [place] [address] Bon Gutierrez MD [address] [facility], [address] [place] [phone] 09/10/2024 10:00 EDT Appointment Shaina Bergeron Ultrasound [address] [place], [place] [phone] documented as of this encounter Procedures Procedure Name Priority Date/Time Associated Diagnosis Comments US LIVER/ABDOMEN VISCERAL DUPLEX Routine 11/17/2023 14:23 EDT Cirrhosis (HCC-CMS) documented in this encounter Results * US ABDOMEN LIMITED WITH COMPLETE DUPLEX [...] ??Hepatic cirrhosis morphology. Splenomegaly. ?? Reference: Guillermo SANTILLAN, Marilyn LESTER, Nicole WD, Naresh KM, Nelly SA, [place] TK. Doppler sonography findings associated with transjugular intrahepatic portosystemic shunt malfunction. AJR Am J Roentgenol. 1996. May;168(2):467-72. [id number] Narrative 11/19/2023 13:29 EDT US ABDOMEN LIMITED WITH COMPLETE DUPLEX ??11/17/2023 1:41 PM SIGNS AND SYMPTOMS/COMMENTS: Cirrhosis COMPARISONS: Ultrasound abdomen from 10/10/2023 GRAYSCALE: TECHNIQUE: Grayscale ultrasound images of the liver were obtained. INDICATION FOR GRAYSCALE: Evaluate for structural abnormality Resulting Agency Comment [id number] Procedure Note Madelaine Francois MD - 11/19/2023 [...] 3. Hepatic cirrhosis morphology. Splenomegaly. Reference: Guillermo SANTILLAN, Marilyn LESTER, Nicole WD, Naresh KM, Nelly SA, Conor TK.Doppler sonography findings associated with transjugular intrahepaticportosystemic shunt malfunction. AJR Am J Roentgenol. 1997.May;168(2):467-72. [id number] Norbert Bennett PA-C IMG US ORDERABLES documented in this encounter Visit Diagnoses Diagnosis Cirrhosis (HCC-CMS) Cirrhosis of liver without mention of alcohol documented in this encounter Care Teams Business Project Analyst Relationship Specialty Start Date End Date George Lou RPA [address] [place] [address] PCP - General Family Medicine - Primary Care 09/21/22 documented as of this encounter
--- OUTSIDE RECORDS SUMMARY | 2023-12-21 12:05 | XMS_ITS | Encounter Summary ---
Author Organization [facility] Address [address] [place] [address] Care Team Providers Care Dressing Room Attendant Name Role Phone CarmineGeorge NORMA Primary Care Provider +1 -[phone] Reason for Visit * Reason Onset Date Comments Appointment Related 11/07/2023 Encounter Details Date Type Department Care Team (Late st Contact Info) Description 11/07/2023 Telephone [facility] Interventional Radiology - [address] [phone] Guicho Rosales MD [address] [place] [address] [address] [place] [address] Appointment Related Social History Tobacco [...] * Telephone Encounter - Lizy Hull - 11/07/2023 1101 EDT 2nd attempt to reach PCP office to sort out MR authorization issue prior to 11/16 scheduled visits Requesting return call to [phone] option 1 documented in this encounter Plan of Treatment Upcoming Encounters Date Type Department Care Team (Late st Contact Info) Description 01/23/2024 10:00 EDT Office Visit [facility] General Surgery - [facility] [address] [place], [place] [address] Bon Gutierrez MD [address] [facility], [address] [place] [phone] 09/10/2024 10:00 EDT Appointment Shaina Mejia [address] [place] [address] documented as of this encounter Visit Diagnoses Not on filedocumented in this encounter Care Teams Dressing Room Attendant Relationship Specialty Start Date End Date George Lou RPA [address] [address] PCP - General Family Medicine - Primary Care 09/21/22 documented as of this encounter
--- OUTSIDE RECORDS SUMMARY | 2023-12-21 12:05 | XMS_ITS | Encounter Summary ---
Author Organization [facility] Address [address] [place] [address] Care Team Providers Care Manager Cosmetic Name Role Phone George Lou NORMA Primary Care Provider [phone] [phone] Reason for Referral * Radiology Services (Routine/Next Available) - Receiving Office to Obtain Authorization Specialty Diagnoses / Procedures Referred By Tad t Referred To Contact Procedures TUMOR BOARD RADIOLOGY CONSULT LIVER TUMOR BOARD RADIOLOGY CONSULT NON BREAST Filipe Sarmiento MD [address] [place] [phone] Referral ID Status Reason Start Date Expiration Date Visits Requested Visits Authorized [id number] Receiving Office to Obtain Authorization 11/25/2023 1 1 * Consult (Routine/Next Available) - New Request Specialty Diagnoses / Procedures Referred By Tad alcaraz Referred To Contact Hematology and Oncology Diagnoses Alcoholic cirrhosis of liver without ascites (HCC-CMS) Filipe Sarmiento MD [address] [place] [phone] Referral ID Status Reason Start Date Expiration Date Visits Requested Visits Authorized [id number] New Request Specialty Services Required 11/25/2023 1 1 Question Answer Location [facility] Tumor Board Liver 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 No Radiology Review Review Recent Radiology Question to be answered: Discuss dz extent/staging for tx plan Place appropriate Radiology Tumor Board Order below (up to 8 for Breast and up to 4 for all others) Acknowledge Pathology Review No Need to Review Trial Options No Encounter Details Date Type Department Care Team (Late st Contact Info) Description 11/25/[address] Orders [address] [facility] Interventional Radiology - [address] [address] Echo Doe RN Alcoholic cirrhosis of liver without ascites (HCC-CMS) (Primary Dx) Social History Tobacco Use [...] Description 01/23/2024 10:00 EDT Office Visit [facility] General Surgery - [address] [phone] Bon Gutierrez MD [address] [facility], [address] [place] [phone] 09/10/2024 10:00 EDT Appointment Shaina Bergeron Ultrasound [address] [place] [address] Scheduled Referrals Name Type Priority Associated Diagnoses Orde r Schedule AMB CONSULT/FOLLOW UP TUMOR BOARD Outpatient Referral Routine Alcoholic cirrhosis of liver without ascites (HCC-CMS) Ordered: 11/25/2023 documented as of this encounter Results * TUMOR BOARD RADIOLOGY CONSULT LIVER [...] performed for the imaging exams listed above. [id number] Resulting Agency Comment [id number] Procedure Note Cole Leblanc MD - 12/08/2023 TUMOR BOARD IMAGING REVIEW Tumor board: Liver tumor board Date of tumor board: 12/07/2023 Indication: Liver lesions. Imaging studies reviewed: Abdominal MRI with and without contrast 11/17/2023 Comments: A focused interpretation for the purpose of tumor board/MDC discussion wasperformed for the imaging exams listed above. [id number] Filipe Sarmiento MD IMG CT ORDERABLES documented in this encounter Visit Diagnoses Diagnosis Alcoholic cirrhosis of liver without ascites (HCC-CMS)- Primary Alcoholic cirrhosis of liver documented in this encounter Care Teams Manager Cosmetic Relationship Specialty Start Date End Date George Lou RPA [address] [place] [address] PCP - General Family Medicine - Primary Care 09/21/22 documented as of this encounter
--- OUTSIDE RECORDS SUMMARY | 2023-12-21 12:05 | XMS_ITS | Encounter Summary ---
Author Organization [facility] Address [address] [place] [address] Care Team Providers Care Boring Machine Operator Double End Name Role Phone CarmineGeorge NORMA Primary Care Provider [phone] Reason for Referral * Radiology Services (Routine/Next Available) - Receiving Office to Obtain Authorization Specialty Diagnoses / Procedures Referred By Contac t Referred To Contact Procedures TUMOR BOARD RADIOLOGY CONSULT LIVER TUMOR BOARD RADIOLOGY CONSULT NON BREAST Filipe Sarmiento MD [address] [place] [phone] Referral ID Status Reason Start Date Expiration Date Visits Requested Visits Authorized [id number] Receiving Office to Obtain Authorization 11/25/2023 1 1 Reason for Visit * Radiology Services (Routine/Next Available) - Receiving Office to Obtain Authorization Specialty Diagnoses / Procedures Referred By Contac t Referred To Contact Procedures TUMOR BOARD RADIOLOGY CONSULT LIVER TUMOR BOARD RADIOLOGY CONSULT NON BREAST Filipe Sarmiento MD [address] [place] [phone] Referral ID Status Reason Start Date Expiration Date Visits Requested Visits Authorized [id number] Receiving Office to Obtain Authorization 11/25/2023 1 1 Encounter Details Date Type Department Care Team (Latest Contact Info) Description 11/25/2023 15:17 EDT - 11/25/2023 23:59 EDT Hospital Encounter [facility] Radiology - Main [address] [address] Discharge Disposition: Home or Self Care Social [...] times daily. Obtaining through Patient Assistance Program ([employer]), approved on 05/31/19 x1 year. Phone number for PAP: [phone] semaglutide (OZEMPIC) subcutaneous pen Inject into the [...] Info) Description 01/23/2024 10:00 EDT Office Visit [facility] General Surgery - [address] [address] Bon Gutierrez MD [address] [facility], [address] [place] [phone] 09/10/2024 10:00 EDT Appointment Shaina Bergeron Ultrasound [address] [place], [place] [phone] documented as of this encounter Procedures Procedure Name Priority Date/Time Associated Diagnosis Comments TUMOR BOARD RADIOLOGY CONSULT LIVER Routine 11/25/2023 15:17 EDT documented in this encounter Results * TUMOR BOARD RADIOLOGY [...] performed for the imaging exams listed above. [id number] Resulting Agency Comment [id number] Procedure Note Cole Leblanc MD - 12/08/2023 TUMOR BOARD IMAGING REVIEW Tumor board: Liver tumor board Date of tumor board: 12/07/2023 Indication: Liver lesions. Imaging studies reviewed: Abdominal MRI with and without contrast 11/17/2023 Comments: A focused interpretation for the purpose of tumor board/MDC discussion wasperformed for the imaging exams listed above. [id number] Filipe Sarmiento MD IMG CT ORDERABLES documented in this encounter Visit Diagnoses Not on filedocumented in this encounter Care Teams Boring Machine Operator Double End Relationship Specialty Start Date End Date George Lou RPA [address] [place] [address] PCP - General Family Medicine - Primary Care 09/21/22 documented as of this encounter
--- OUTSIDE RECORDS SUMMARY | 2023-12-21 12:05 | XMS_ITS | Encounter Summary ---
[place] [address] Care Team Providers Care Branch Rental Manager Name Role Phone George Lou Primary Care Provider [phone] Encounter Details Date Type Department Care Team (Late st Contact Info) Description 11/30/2007 [place] [address] Shaun Zavala MD GASTROENTEROLOGY Social History Tobacco Use Types Packs/Day Years [...] 8:15 AM EST Office Visit Dermatology at [place] [address] [place] [phone] Jin Nunez MD [address], [place] [address] documented as of this encounter Procedures Procedure Name Priority Date/Time Associated Diagnosis Comments SURGICAL PATHOLOGY REPORT Routine 11/30/2007 3:08 PM EDT documented in this encounter Results * Surgical Pathology Report (11/30/2007 3:08 PM EDT) Surgical Pathology Report [id number] ? Location: 4T The signing pathologist has (i) examined the relevant preparation(s) for the specimen(s) and (ii) rendered or confirmed the diagnosis(es). . ?Pathology Surgical Pathology Final Report Clinical Information Specimen Submitted: A - Endoscopic Biopsies: ??Jejunum B - Endoscopic Biopsies: ??Duodenal Bulb Clinical History: Not provided Clinical Diagnosis: Unknown GI bleed Gross Description A - Labeled/Fixativ e: Endoscopic biopsies jejunum, formalin. Qty/Size/Weight : ?Two, averaging 0.3 x 0.3 x 0.2 cm. Tissue Description: ?? Soft, ames-pandey tissues. Sections/Proces sing: ??(T1) B - Labeled/Fixativ e: Endoscopic biopsies, duodenal bulb; formalin. Qty/Size/Weight : ?Three, averaging 0.3 x 0.2 x 0.2 cm. Tissue Description: ?? Soft, ames-white tissues. Sections/Proces sing: ??(T1) ??aje/PPS Microscopic Description Slides reviewed, microscopic description not recorded. Diagnosis Endoscopic biopsies - A. Duodenal mucosa within normal limits, including preserved villous architecture. B. Duodenal mucosa with nonspecific erosion. No pathogenic organisms, viral inclusions, ova or granulomas are seen (GMS and H.pylori stains are negative). CR-0 12/01/07 AAS 12/04/07 Verified by: ? Akosua Skelton MD ?Pathologist ?(Electronic Signature) The attending pathologist whose signature appears on this report has reviewed all diagnostic slides and has edited the gross and/or microscopic portion of the report in rendering the final pathologic diagnosis. [facility] 11/30/2007 3:08 PM EDT Shaun Zavala MD PATHOLOGY/CYTOLOGY ORDERABLES [facility] documented in this encounter Visit Diagnoses Not on filedocumented in this encounter Care Teams Branch Rental Manager Relationship Specialty Start Date End Date George Lou PA [address] [place] [address] PCP - General Internal Medicine 11/12/22 documented as of this encounter
--- OUTSIDE RECORDS SUMMARY | 2023-12-21 12:05 | XMS_ITS | Encounter Summary ---
[place] [address] Care Team Providers Care Tomahawk Weapon System Operator Name Role Phone Laurie Wiggins MD Primary Care Provider [phone] Reason for Visit * Reason Comments Follow-up Encounter Details Date Type Department Care Team (Late st Contact Info) Description 01/29/2011 11:00 AM EDT Follow-[place] [address] CLINIC, Paty Verdugo APRN [facility] [address] GASTROENTER[place] [address] Cirrhosis (Primary Dx) Discharge Disposition: Home Social [...] Sign Reading Time Taken Comments Blood Pressure 130/77 01/29/2011 10:49 AM EDT Pulse 69 01/29/2011 10:49 AM EDT Temperature - - Respiratory Rate - - Oxygen Saturation - - Inhaled Oxygen Concentration - - Weight 88.7 kg (195 lb 9.6 oz) 01/29/2011 10:49 AM EDT Height 160 cm (5' 3) 01/29/2011 10:49 AM EDT Body Mass Index 34.65 01/29/2011 10:49 AM EDT documented in this encounter Progress Notes * Paty Pedraza, MARKET RESEARCH INTERVIEWER - 01/29/2011 10:27 AM EDT Subjective: Patient ID: Alonzo Urbina [...] underwent serial variceal band ligation ( at [facility])and was banded in December 2007 (6 bands), January 2008 ( 4 bands) and April of 2008 (3 bands). 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 He drinks when he feels depressed. 03/20/2010 AFP 5.6, wbc 3.1, hg 10, [...] Review of Systems Constitutional: Positive for fatigue. Respiratory: Negative for cough and shortness of breath. Gastrointestinal: Positive for abdominal pain and blood in stool. Psychiatric/Behavioral: Negative for suicidal ideas. Objective: Physical Exam Constitutional: He appears well-developed and well-nourished. HENT: Head: Atraumatic. Cardiovascular: Normal rate, regular rhythm and normal heart sounds. Pulmonary/Chest: He has no wheezes. Abdominal: Soft. He exhibits no ascites. There is hepatomegaly. Assessment and Plan: 1. Cirrhosis needs to continue with biannual hepatoma surveillance. 2. Portal hypertension, may consider TIPS as he has recurrent bleeding episodes. Today we spent some time discussing the risks of the procedure. He will think about this option and will follow up with me in the new year to make a decision. 3. Depression, I have encouraged him to seek care for this issue. He feels that it is contributing to his abuse of alcohol. documented in this encounter Plan of Treatment Upcoming Encounters Date Type Department Care Team (Late st Contact Info) Description 2024 8:15 AM EST Office Visit Dermatology at [place] [address] [facility] [place] [address] Jin Nunez MD [address] [facility], [place] [address] [phone] (work) documented as of this encounter Procedures Procedure Name Priority Date/Time Associated Diagnosis Comments DIFFERENTIAL, AUTOMATED Routine 01/29/2011 12:10 PM EDT AFP TUMOR MARKER Routine 01/29/2011 12:1 0 PM EDT Cirrhosis PROTHROMBIN TIME Routine 01/29/2011 12:1 0 PM EDT Cirrhosis CBC (WITH DIFF) Routine 01/29/2011 12:10 PM EDT Cirrhosis COMPREHENSIVE METABOLIC PANEL Routine 01/29/2011 12:10 PM EDT Cirrhosis documented in this encounter Results * A-DIFF (01/29/2011 12:10 PM EDT) Neutrophil % 52.6 34.0 - 71.0 % CERNER MILLENNIUM Neutrophil Absolute 2.42 1.50 - 6.30 x10(3)/mcL CERNER MILLENNIUM Lymph % 32.0 19.0 - 53.0 % CERNER MILLENNIUM Lymphocytes Abs 1.5 1.0 - 3.6 x10(3)/mcL CERNER MILLENNIUM Monocyte % 11.3 4.0 - 13.0 % CERNER MILLENNIUM Monocyte Abs 0.5 0.2 - 1.0 x10(3)/mcL CERNER MILLENNIUM Eos % 3.3 0.0 - [...] 0.05 x10(3)/mcL CERNER MILLENNIUM Blood specimen (specimen) 01/29/2011 12:10 PM EDT 01/29/2011 12:16 PM EDT Gustabo Garza MD HEMATOLOGY ORDERABL ES Performing Organization Address [facility] Co de Phone Number THEO POOLENNIUM * AFP tumor marker (01/29/2011 12:10 PM EDT) Alpha Fetoprotein 6 <=19 ng/mL CERNER MILLENNIUM Blood specimen (specimen) 01/29/2011 12:10 PM EDT 01/29/2011 2:40 PM EDT Gusatbo Garza MD CHEMISTRY ORDERABLE S Performing Organization Address [facility] de Phone Number [facility] CORINEENNIUM * (ABNORMAL) Prothrombin Time (01/29/2011 12:10 PM EDT) Prothrombin Time 14.8(H) 12.3 - 14.7 sec CERNER MILLENNIUM Comment: [facility] Transfusion Committee Guidelines: INR less than 2.0, PTT less than OR equal to 43.5 seconds, or Fibrinogen greater than or equal to 100 mg/dl indicate adequate procoagulant activity for hemostasis in patients without underlying bleeding disorders. International Normalization Ratio 1.1 0.9 - 1.1 CERSIDDHARTH MILLENNIUM Blood specimen (specimen) 01/29/2011 12:10 PM EDT 01/29/2011 12:16 PM EDT Gustabo Garza MD HEMATOLOGY ORDERABL ES Performing Organization Address [facility] Co de Phone Number THEO POOLENNIUM * (ABNORMAL) Comprehensive metabolic panel (non-fasting) (01/29/2011 12:10 PM EDT) Glucose 163 60 - 199 mg/dL [facility] WideAngle TechnologiesENNIUM Comment:Diabetes: >=200 mg/d L plus symptoms Blood Urea Nitrogen 9(L) 10 - 20 mg/dL CERNER MILLENNIUM Creatinine 0.74(L) 0.80 - 1.50 mg/dL CERNER MILLENNIUM Sodium 139 135 - 145 mmol/L CERNER MILLENNIUM Potassium 3.9 3.5 - 5.0 mmol/L CERNER MILLENNIUM Comment: Please note: ??Patients with WBC >100,000 may have falsely elevated Potassium levels. ??For accurate Potassium quantification in these patients send serum separator tube (gold top) for subsequent determinations. ??Contact the Clinical Chemistry Laboratory if there are any questions. Chloride 106 98 - 107 mmol/L CERNER MILLENNIUM Carbon Dioxide 29 22 - 31 mmol/L CERNER MILLENNIUM Anion Gap 4(L) 5 - 15 mmol/L CERNER MILLENNIUM Calcium 8.6 8.5 - 10.5 mg/dL CERNER MILLENNIUM Protein, Total 7.5 6.4 - 8.3 gm/dL CERNER MILLENNIUM Albumin 3.6 3.2 - 5.2 gm/dL CERNER MILLENNIUM Aspartate Aminotransferase 44(H) 0 - 39 unit/L CERNER MILLENNIUM Alanine Aminotransferase 25 0 - 55 unit/L CERNER MILLENNIUM Alkaline Phosphatase 98 40 - 120 unit/L CERNER MILLENNIUM Bilirubin, Total 0.5 0.2 - 1.3 mg/dL CERNER MILLENNIUM Bilirubin, Direct 0.2 0.0 - 0.3 mg/dL CERNER MILLENNIUM Est Glomerular Filtration Rate >60 >=60 CERNER MILLENNIUM Comment: The National Kidney Disease Education Program (NKDEP) has recommended all laboratories report estimated GFR (eGFR) along with plasma creatinine measurements to assist you with recognition of early kidney disease. Caveats: ??Plasma creatinine should be at steady-state (unchanged within the past week). For patients multiply eGFR by 1.2.MDRD equation has not been validated for pediatric patients and is only valid for patients with age >= 18 years. At present, NKDEP does NOT recommend using [...] with diabetic kidney disease. References: http://nkdep.nih.gov/resources/NKDEP_Suggestn4Labs_0606_508.pdf http://www.kidney.org/professionals/kls/pdf/faq_gfr.pdf Blood specimen (specimen) 01/29/2011 12:10 PM EDT 01/29/2011 12:16 PM EDT Gustabo Garza MD CHEMISTRY ORDERABLE S CERNER MILLENNIUM * (ABNORMAL) CBC (with Diff) (01/29/2011 12:10 PM EDT) White Blood Cell 4.6 4.0 - 10.0 x10(3)/mc L CERNER MILLENNIUM Red Blood Cell 3.72(L) 4.63 - 6.08 x10(6)/mc L CERNER MILLENNIUM Hemoglobin 11.3(L) 13.7 - 17.5 gm/dL CERNER MILLENNIUM Hematocrit 35.0(L) 40.0 - 51.0 % CERNER MILLENNIUM Mean Cell Volume 94.1(H) 79.0 - 92.0 fL CERNER MILLENNIUM Mean Cell Hemoglobin 30.4 25.6 - 32.2 pg CERNER MILLENNIUM Mean Cell Hemoglobin Concentration 32.3 32.0 - 36.5 gm/dL CERNER MILLENNIUM Platelet 108(L) 145 - 370 x10(3)/mc L CERNER MILLENNIUM RDW Standard Deviation 50.1(H) 35.0 - 46.0 fL CERNER MILLENNIUM RDW coefficient of variation 14.8(H) 10.9 - 14.4 % CERNER MILLENNIUM Mean Platelet Volume 9.1 9.0 - 12.0 fL CERNER MILLENNIUM Blood specimen (specimen) 01/29/2011 12:10 PM EDT 01/29/2011 12:16 PM EDT Gustabo Garza MD HEMATOLOGY ORDERABL ES [facility] documented in this encounter Visit Diagnoses Diagnosis Cirrhosis- Primary Cirrhosis of liver without mention of alcohol documented in this encounter Care Teams Tomahawk Weapon System Operator Relationship Specialty Start Date End Date Laurie Wiggins MD [address] [place] [address] PCP - General 03/03/10 02/12/19 documented as of this encounter
--- OUTSIDE RECORDS SUMMARY | 2023-12-21 12:05 | XMS_ITS | Encounter Summary ---
Author Organization [facility] Address [address] [place] [address] Care Team Providers Care Laminating Machine Operator Name Role Phone CarmineGeorge NORMA Primary Care Provider [phone] Reason for Visit * Reason Onset Date Comments Appointment Related 09/27/2023 Encounter Details Date Type Department Care Team (Late st Contact Info) Description 09/27/2023 Telephone [facility] Interventional Radiology - [address] [id number] Guicho Rosales MD [address] [place] [address] [address] [place] [address] Appointment Related Social History Tobacco [...] * Telephone Encounter - Lizy Hull - 09/27/2023 1039 EDT Incoming call from Alonzo- who confirmed the following information: Tuesday, October 10 2023 Appointment type: US liver Time: 11:15 am check in; 11:30am scan time Location: [address] [address] Followed by: October Appointment type: Follow up office visit Scheduled with: Marcel Bennett Time: 2:00pm Location: Interventional Radiology Clinic [facility], 3rd Floor documented in this encounter Plan of Treatment Upcoming Encounters Date Type Department Care Team (Late st Contact Info) Description 01/23/2024 10:00 EDT Office Visit [facility] General Surgery - [address] [phone] Bon Gutierrez MD [address] [place] [address], [address] [place] [address] 09/10/2024 10:00 EDT Appointment [address] [address] documented as of this encounter Visit Diagnoses Not on filedocumented in this encounter Care Teams Laminating Machine Operator Relationship Specialty Start Date End Date George Lou RPA [address] [place] [address] PCP - General Family Medicine - Primary Care 09/21/22 documented as of this encounter
--- OUTSIDE RECORDS SUMMARY | 2023-12-21 12:05 | XMS_ITS | Encounter Summary ---
Author Organization [facility] Address [address] [place] [address] Care Team Providers Care Body Shop Mechanic Name Role Phone George Lou [facility] Primary Care Provider [phone] Reason for Referral * Radiology Services (Routine/Next Available) - Authorization Not Required Specialty Diagnoses / Procedures Referred By Contac t Referred To Contact Diagnoses Other cirrhosis of liver (HCC-CMS) Procedures US LIVER/ABDOMEN VISCERAL DUPLEX Guicho Rosales MD [address] [place] [phone] [facility] Referral ID Status Reason Start Date Expiration Date Visits Requested Visits Authorized [id number] Authorization Not Required 09/12/2023 1 1 Reason for Visit * Radiology Services (Routine/Next Available) - Authorization Not Required Specialty Diagnoses / Procedures Referred By Tad alcaraz Referred To Contact Diagnoses Other cirrhosis of liver (HCC-CMS) Procedures US LIVER/ABDOMEN VISCERAL DUPLEX Guicho Rosales MD [address] [place] [phone] [facility] Referral ID Status Reason Start Date Expiration Date Visits Requested Visits Authorized [id number] Authorization Not Required 09/12/2023 1 1 Encounter Details Date Type Department Care Team (Latest Contact Info) Description 10/10/2023 11:01 EDT - 10/10/2023 23:59 EDT Hospital Encounter Shaina Bergeron Ultrasound [address] [place] [address] Other cirrhosis of liver (HCC-[facility]) Discharge Disposition: Home or Self Care Social [...] times daily. Obtaining through Patient Assistance Program ([employer]), approved on 05/31/19 x1 year. Phone number for PAP: [phone] semaglutide (OZEMPIC) subcutaneous pen Inject into the [...] Info) Description 01/23/2024 10:00 EDT Office Visit [facility] General Surgery - [facility] [address] [place], [place] [address] Bon Gutierrez MD [address] [facility], [address] [place] [address] 09/10/2024 10:00 EDT Appointment Shaina Bergeron Ultrasound [address] [place] [address] documented as of this encounter Procedures Procedure Name Priority Date/Time Associated Diagnosis Comments US LIVER/ABDOMEN VISCERAL DUPLEX Routine 10/10/2023 12:17 EDT Other cirrhosis of liver (HCC-CMS) documented in this encounter Results * [...] shunt malfunction. AJR Am J Roentgenol. 1996. May;168(2):467-92. I have personally reviewed the images and the above interpretation and agree with the findings. [id number] Narrative 10/10/2023 14:58 EDT US ABDOMEN LIMITED WITH LIMITED DUPLEX ??10/10/2023 11:20 AM SIGNS AND SYMPTOMS/COMMENTS: TIPS. Need ultrasound surveillance to assess for patency and stenosis.;K74.69:Other cirrhosis of liver (HCC-CMS) COMPARISONS: TIPS ultrasound from 09/21/2022 and 09/08/2021 GRAYSCALE: TECHNIQUE: Grayscale ultrasound images of the liver were obtained. INDICATION FOR GRAYSCALE: Evaluate for structural abnormality Resulting Agency Comment [id number] Procedure Note Selvin Rowe MD - 10/10/2023 [...] the above interpretation andagree with the findings. [id number] Guicho Rosales MD [facility] US ORDER CLAUDIO documented in this encounter Visit Diagnoses Diagnosis Other cirrhosis of liver (HCC-CMS) documented in this encounter Care Teams Body Shop Mechanic Relationship Specialty Start Date End Date George Lou RPA [address] [address] PCP - General Family Medicine - Primary Care 09/21/22 documented as of this encounter
--- OUTSIDE RECORDS SUMMARY | 2023-12-21 12:05 | XMS_ITS | Referral Summary ---
Author Organization [facility] Address [address] [place] [address] Care Team Providers Care Qualification Engineer Name Role Phone CarmineGeorge NORMA Primary Care Provider [phone] Encounters Date Type Department Care Team Description 11/25/2023 15:17 EDT - 11/25/2023 23:59 EDT Hospital Encounter [facility] Radiology [address] [address] Discharge Disposition: Home or Self Care 11/25/2023 Orders Only [facility] Interventional Radiology [address] [id number] Echo Doe, MELY Alcoholic cirrhosis of liver without ascites (HCC-CMS) (Primary Dx) 11/17/2023 15:07 EDT - 11/17/2023 23:[address] [facility] MRI [address] [facility] [place], [place] [id number] Cirrhosis (HCC-CMS) Discharge Disposition: Home or Self Care 11/17/2023 11:03 EDT - 11/17/2023 15:06 EDT Hospital Encounter [facility] Radiology [facility] [place] [address] [place], [place] [id number] Cirrhosis (HCC-CMS) Discharge Disposition: Home or Self Care 11/07/2023 Telephone [facility] Interventional Radiology [facility] [address] [place], [place] [address] Guicho Rosales MD Appointment Related 10/17/2023 Orders Only [facility] Radiology - [address] [address] Joe Morrow MD 10/10/2023 14:00 EDT Office Visit [facility] Interventional Radiology [address] [address] Norbert Bennett PA-C Cirrhosis (HCC-CMS) (Primary Dx) 10/10/2023 11:01 EDT - 10/10/2023 23:59 EDT Hospital Encounter [facility] Ul[facility] [address] [place] [address] Other cirrhosis of liver (HCC-CMS) Discharge Disposition: Home or Self Care 09/27/2023 Telephone [facility] Interventional [address] [address] Guicho Rosales MD Appointment Related 09/26/2023 Telephone [facility] Interventional Radiology [address] [phone] Guicho Rosales MD Appointment Related from Last 3 Months Allergies Active Allergy Reactions Criticality Noted Date [...] times daily. Obtaining through Patient Assistance Program ([employer]), approved on 05/31/19 x1 year. 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[facility]) 01/08/2014 Overview: This diagnosis was automatically updated [...] ICD10 Update Auto Replacement Cirrhosis of liver ([facility]) 03/14/2013 Resolved Problems Problem Noted Date Diagnosed Date Resolved Date Duodenal ulcer with hemorrhage 07/02/2018 07/02/2018 Acute blood loss anemia 06/18/201306/10 Immunizations Name Administration Dates Next Due Influenza (whole) 11/09/2014 Influenza Vaccine Quad (AFLURIA) PF 0.5 ml IM (3 yrs+) 01/09/2014 Pneumococcal Polysaccharide (PPSV23) Vaccine (PNEUMOVAX-23) =>2YO SQ/IM 01/11/2014 Social History Tobacco Use Types Packs/Day Years [...] 8:12 EST Sexual Orientation Not on file Last Filed [...] Body Mass Index 38.96 05/15/2019 1356 EST Functional Status Functional Status Response Date of [...] (5 years old or older) No 08/09/2018 Plan of Treatment Upcoming Encounters Date Type Department Care Team (Late st Contact Info) Description 01/23/2024 10:00 EDT Office Visit [facility] General Surgery - [address] [address] Bon Gutierrez MD [address] [facility], [address] [place] [phone] 09/10/2024 10:00 EDT Appointment [facility] Ul[facility] [address] [place] [address] Medical Devices Implanted Type Area Furnace Maintenance Device Identifier Shelf Expiration Date Model / [...] performed for the imaging exams listed above. [id number] Resulting Agency Comment [id number] Procedure Note Cole Leblanc MD - 12/08/2023 TUMOR BOARD IMAGING REVIEW Tumor board: Liver tumor board Date of tumor board: 12/07/2023 Indication: Liver lesions. Imaging studies reviewed: Abdominal MRI with and without contrast 11/17/2023 Comments: A focused interpretation for the purpose of tumor board/MDC discussion wasperformed for the imaging exams listed above. [id number] Filipe Sarmiento MD IMG CT ORDERABLES * MR ABDOMEN W WO CONTRAST (11/17/2023 18:13 EDT) Anatomical Region Laterality Modality Body, Abdomen Magnetic Resonan ce 11/18/2023 10:3 7 EDT Addenda Addendum by Blake Fuentes MD on 11/25/2023 9:35 EDT Addendum: MRI of the abdomen with and without IV contrast was performed. [id number] Impressions 11/18/2023 10:37 EDT Lesion #1: Segment [...] ongoing routine MRI surveillance for hepatocellular carcinoma. [id number] Narrative 11/18/2023 10:37 EDT MR ABDOMEN W [...] Localizer: No additional findings. Resulting Agency Comment [id number] Procedure Note Blake Fuentes MD - 11/18/2023 [...] is ongoing routine MRIsurveillance for hepatocellular carcinoma. [id number] Norbert Bennett PA-C [facility]MR[facility]er MRI ORDERABLES * US ABDOMEN [...] malfunction. AJR Am J Roentgenol. 1996. May;168(2):467-72. [id number] Narrative 11/19/2023 13:29 EDT US ABDOMEN LIMITED WITH COMPLETE DUPLEX ??11/17/2023 1:41 PM SIGNS AND SYMPTOMS/COMMENTS: Cirrhosis COMPARISONS: Ultrasound abdomen from 10/10/2023 GRAYSCALE: TECHNIQUE: Grayscale ultrasound images of the liver were obtained. INDICATION FOR GRAYSCALE: Evaluate for structural abnormality Resulting Agency Comment [id number] Procedure Note Madelaine Francois MD - 11/19/2023 [...] Reference: Guillermo RY, Marilyn LESTER, Nicole WD, Narseh KM, Nelly SA, Pilpaula TK.Doppler sonography findings associated with transjugular intrahepaticportosystemic shunt malfunction. AJR Am J Roentgenol. 1996.May;168(2):467-72. [id number] Norbert Bennett PA-C [facility] US ORDERABLES * US ABDOMEN LIMITED WITH [...] above interpretation and agree with the findings. [id number] Narrative 10/10/2023 14:58 EDT US ABDOMEN LIMITED WITH LIMITED DUPLEX ??10/10/2023 11:20 AM SIGNS AND SYMPTOMS/COMMENTS: TIPS. Need ultrasound surveillance to assess for patency and stenosis.;K74.69:Other cirrhosis of liver (HCC-CMS) COMPARISONS: TIPS ultrasound from 09/21/2022 and 09/08/2021 GRAYSCALE: TECHNIQUE: Grayscale ultrasound images of the liver were obtained. INDICATION FOR GRAYSCALE: Evaluate for structural abnormality Resulting Agency Comment [id number] Procedure Note Selvin Rowe MD - 10/10/2023 [...] the above interpretation andagree with the findings. [id number] Guicho Rosales MD [facility] US ORDER CLAUDIO * HCV RNA DETECT QUANT (06/28/2018 6:56 EDT) HCV RNA Detect Quant Undetected Undetected IU/mL 06/29/2018 16:21 EDT [facility] Comment: Reference Range: ??Undetected The quantification range of this assay is 15 IU/mL to 100,000,000 IU/mL. Testing was performed by the [employer] Ampliprep/Mili TaqMan HCV v2.0 ([employer] Blood specimen (specimen) BLOOD SPECIMEN / Unknown 06/28/2018 6:56 EDT 06/28/2018 7:13 EDT Zac Whitaker MD CHEMISTRY & BLOOD G ORDERABLES [facility] [address] [place] [address] from Last 3 Months or Most Recently Relevant to Health Maintenance [address] [place] [address] Alonzo Urbina Personal/Famil y Self [address] [place] [address] 1 [place] [address] Alonzo Urbina Personal/Famil y Self [address] [place] [address] Alonzo Urbina Personal/Famil y Self [address] [place] [address] 1 [place] [address] Alonzo Urbina Personal/Famil y Self [address] [place] [address] 1 [place] [address] Alonzo Urbina Personal/Famil y Self [address] [place] [address] [address] [place] [address] Alonzo Urbina Personal/Famil y Self [address] [place] [address] 1 [place] [address] Alonzo Urbina Personal/Famil y Self [address] [place] [address] [place] [address] Advance Directives For more information, please contact: [phone] Documents on File Type Date Recorded Patient Coordinator Skill Training Program Expl anation COLST/MOLST 09/15/2018 12:25 2013-03-26 DN [...] in the Discussion? 1. Patient Care Teams Qualification Engineer Relationship Specialty Start Date End Date George Lou RPA [address] [place] [address] PCP - General Family Medicine - Primary Care 09/21/22
--- OUTSIDE RECORDS SUMMARY | 2023-12-21 12:05 | XMS_ITS | Encounter Summary ---
[place] [address] Care Team Providers Care Medical Equipment Repairer Name Role Phone Unavailable Primary Care Provider Unavailabl e Encounter Details Date Type Department Care Team (Late st Contact Info) Description 02/24/2010 2:30 PM EST [place] [address] Paty Pedraza APRN [facility] [place] [address] Social History Tobacco Use Types Packs/Day Years [...] 8:15 AM EST Office Visit [facility] [place] [address] [place] [phone] Jin Nunez MD [address], [place] [address] documented as of this encounter Visit Diagnoses Not on filedocumented in this encounter
--- OUTSIDE RECORDS SUMMARY | 2023-12-21 12:05 | XMS_ITS | Encounter Summary ---
[place] [address] Care Team Providers Care Senior Safety Support Manager Name Role Phone Laurie Wiggins MD Primary Care Provider [phone]- [phone] Encounter Details Date Type Department Care Team (Late st Contact Info) Description 04/01/2010 2:30 PM EST [place] [phone] Paty Pedraza APRN [facility] [place] [address] Discharge Disposition: Home Social History Tobacco Use [...] 8:15 AM EST Office Visit [facility]atology at [place] [address] [place] [phone] Jin Nunez MD [address], [place] [address] documented as of this encounter Visit Diagnoses Not on filedocumented in this encounter Care Teams Senior Safety Support Manager Relationship Specialty Start Date End Date Laurie Wiggins MD [address] [place] [address] PCP - General 03/03/10 02/12/19 documented as of this encounter
--- OUTSIDE RECORDS SUMMARY | 2023-12-21 12:05 | XMS_ITS | Encounter Summary ---
[place] [address] Care Team Providers Care Manager Heavy Duty Name Role Phone Laurie Wiggins MD Primary Care Provider [phone]- [phone] Encounter Details Date Type Department Care Team (Late st Contact Info) Description 02/15/2010 [place] [address] [place] [address] Social History Tobacco Use Types Packs/Day Years [...] 8:15 AM EST Office Visit D[facility] at [facility] [address] [place] [address] Jin Nunez MD [address], [place] [address] documented as of this encounter Procedures Procedure Name Priority Date/Time Associated Diagnosis Comments UPPER GI ENDOSCOPY Routine 06/25/2010 9: 46 AM EDT HEMOGLOBIN AND HEMATOCRIT, BLOOD Routine 02/17/2010 12:00 PM EST DIFFERENTIAL, AUTOMATED Routine 02/18/20 10 4:30 AM EST CREATININE Routine 02/17/2010 4:30 AM EST CBC (WITH DIFF) Routine 02/17/2010 4:30 AM EST BUN Routine 02/17/2010 4:30 AM EST HEPATIC FUNCTION PANEL Routine 0 4:30 AM EST ELECTROLYTES PANEL Routine 02/17/2010 4: 30 AM EST HEMOGLOBIN AND HEMATOCRIT, BLOOD Routine 02/16/2010 11:50 PM EST HEMOGLOBIN AND HEMATOCRIT, BLOOD Routine 02/16/2010 6:45 PM EST HEMOGRAM Routine 02/16/2010 1:50 PM EST SCAN, PERIPHERAL BLOOD Routine 0 4:45 AM EST DIFFERENTIAL, AUTOMATED Routine 02/17/20 10 4:45 AM EST CREATININE Routine 02/16/2010 4:45 AM EST APTT Routine 02/16/2010 4:45 AM EST PROTHROMBIN TIME Routine 02/16/2010 4:45 AM EST CBC (WITH DIFF) Routine 02/16/2010 4:45 AM EST BUN Routine 02/16/2010 4:45 AM EST PHOSPHORUS Routine 02/16/2010 4:45 AM EST MAGNESIUM Routine 02/16/2010 4:45 AM EST CALCIUM Routine 02/16/2010 4:45 AM EST HEPATIC FUNCTION PANEL Routine 11/08/201 0 4:45 AM EST ELECTROLYTES PANEL Routine 02/16/2010 4: 45 AM EST POCT GLUCOSE Routine 02/15/2010 11:10 PM EST AB COMMENT Routine 02/15/2010 6:45 PM EST DIFFERENTIAL, AUTOMATED STAT 02/16/20 6:45 PM EST CREATININE STAT 02/15/2010 6:45 PM EST ANTIGEN TYPING Routine 02/15/2010 6:45 PM EST ANTIGEN TYPING Routine 02/15/2010 6:45 PM EST ANTIBODY IDENTIFICATION Routine 02/16/20 10 6:45 PM EST ABO/RH TYPING Routine 02/15/2010 6:45 PM EST APTT STAT 02/15/2010 6:45 PM EST PROTHROMBIN TIME STAT 02/15/2010 6:45 PM EST CBC (WITH DIFF) STAT 02/15/2010 6:45 PM EST ANTIBODY SCREEN Routine 02/15/2010 6:45 PM EST DIRECT ANTIGLOBULIN TEST Routine 02/15/2010 6:45 PM EST BUN STAT 02/15/2010 6:45 PM EST PHOSPHORUS STAT 02/15/2010 6:45 PM EST MAGNESIUM STAT 02/15/2010 6:45 PM EST CALCIUM STAT 02/15/2010 6:45 PM EST HEPATIC FUNCTION PANEL STAT 0 6:45 PM EST ELECTROLYTES PANEL STAT 02/15/2010 6: 45 PM EST SURGICAL PATHOLOGY REPORT Routine 02/15/2010 7:33 AM EST documented in this encounter Results * UPPER GI ENDOSCOPY (06/25/2010 9:46 AM EDT) Pathologist [facility] [place] UPPER GI ENDOSCOPY [facility] Endoscopy ___ Patient Name: Alma Carballo ? Procedure Date: 06/25/2010 09:46:41 AM ? N: [id number] ? Date of : 1955 ? Age: 55 ? ___ Procedure: ? Upper GI endoscopy Indications: ? prior history of GI bleed, cirrhosis, ? 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 Boo Browne MD, Alma Rivera ? MELY Hilton, Bernie Martinez, ? Director Funeral Referring MD: ?Laurie Wiggins MD, Paty Pedraza, ? MD Medicines: ? Monitored Anesthesia Care Complications: ? No immediate complications ___ Procedure: ? Pre-Anesthesia Assessment: ? - Prior to the procedure, a History ? and Physical was performed, and ? patient medications, allergies and ? sensitivities have been reviewed. The ? patient's tolerance of previous ? anesthesia has been reviewed. ? - The risks and benefits of the ? procedure and the sedation options ? and risks were discussed with the ? patient. All questions were answered ? and informed consent was obtained. ? - ASA Grade Assessment: III - A ? patient with severe systemic disease. ? - Anesthesia under the supervision of ? an anesthesiologist using IV propofol ? was determined to be medically ? necessary for this procedure based on ? ASA Grade III-V and patient's ? dependence on opiates, sedatives or ? hypnotics. ? The procedure, indications, benefits, ? risks [...] the procedure well. ? Findings: ? The Z-line was slightly irregular in contour and was ? found 42 cm from the incisors. There was mucosal ? scarring from prior band ligation but no significant ? varices.Patchy mild inflammation characterized by ? striped erythema was found in the gastric antrum. ? This did not have the appearance of GAVE as there ? were no vascular ectasias present.Otherwise normal ? stomach including retroflex view of cardia and ? fundus. There were no gastric varices visualized.The ? examined duodenum was normal. ? Impression: ?- Mucosal scarring in esophagus from ? prior EBL but no significant varices ? are present.. ? - Antral gastritis in striped pattern ? but no evidence for GAVE. ? - Normal examined duodenum. Recommendation: ?- F/up in GI Clinic. ? _ Boo Browne MD Signed Date: 06/25/2010 10:39:01 AM Number of Addenda: 0 ? Note initiated on 06/25/2010 09:46:41 AM PROVATION 06/25/2010 9:46 AM EDT Laurie Wiggins MD GENERAL SURGICAL O RDERABLES PROVATION * (ABNORMAL) HEMOGLOBIN AND HEMATOCRIT, BLOOD (02/17/2010 12:00 PM EST) Hemoglobin 9.0(L) 13.7 - 17.5 gm/dL CERNER MILLENNIUM Hematocrit 27.1(L) 40.0 - 51.0 % [facility] MILLENNIUM Blood specimen (specimen) 02/17/2010 12:00 PM EST 02/17/2010 12:31 PM EST Guille Zazueta MD HEMATOLOGY ORDERABLE S [facility] MILLENNIUM * CREATININE, SERUM (02/17/2010 4:30 AM EST) Creatinine 0.95 0.80 - 1.50 mg/dL [facility]ERNER MILLENNIUM Est Glomerular Filtration Rate >60 >=60 CERNER MILLENNIUM Comment: The National Kidney Disease Education Program (NKDEP) has recommended all laboratories report estimated GFR (eGFR) along with plasma creatinine measurements to assist you with recognition of early kidney disease. Caveats: ??Plasma creatinine should be at steady-state (unchanged within the past week). ??Patient age > = 18 years, and for Americans multiply eGFR by 1.2. At present, NKDEP does NOT recommend using [...] disease. References: http://nkdep.nih.gov/resources/NKDEP_Suggestn4Labs_0606_508.pdf http://www.kidney.org/professionals/kls/pdf/faq_gfr.pdf Blood specimen (specimen) 02/17/2010 4:30 AM EST 02/17/2010 5:01 AM EST Guille Zazueta MD CHEMISTRY ORDERABLES Performing Organization Address [facility] de Phone Number [facility] * BUN (02/17/2010 4:30 AM EST) Blood Urea Nitrogen 13 10 - 20 mg/dL [facility] Blood specimen (specimen) 02/17/2010 4:30 AM EST 02/17/2010 5:01 AM EST Guille Zazueta MD CHEMISTRY ORDERABLES Performing Organization Address [facility] Co de Phone Number [facility] * ELECTROLYTE PANEL (02/17/2010 4:30 AM EST) Sodium 138 135 - 145 mmol/L CERNER MILLENNIUM Potassium 3.8 3.5 - 5.0 mmol/L [facility]ILL[facility] Comment: Please note: ??Patients with WBC >100,000 may have falsely elevated Potassium levels. ??For accurate Potassium quantification in these patients send serum separator tube (gold top) for subsequent determinations. ??Contact the Clinical Chemistry Laboratory if there are any questions. Chloride 105 98 - 107 mmol/L [facility]ERN[facility] MILLENNIUM Carbon Dioxide 27 22 - 31 mmol/L [facility] MILLENNIUM Anion Gap 6 5 - 15 mmol/L [facility] MILLENNIUM Blood specimen (specimen) 02/17/2010 4:30 AM EST 02/17/2010 5:01 AM EST Guille Zazueta MD CHEMISTRY ORDERABLES Performing Organization Address City/[facility]/ZIP Co de Phone Number C[facility]ER MILLENNIUM * (ABNORMAL) HEPATIC FUNCTION PANEL (02/17/2010 4:30 AM EST) Pathologist [facility] [place] Protein, Total 5.3(L) 6.4 - 8.3 gm/dL [facility] MILLENNIUM Albumin 2.9(L) 3.2 - 5.2 gm/dL [facility] MILLENNIUM Aspartate Aminotransferase 93(H) 0 - 39 unit/L [facility] MILLENNIUM Alanine Aminotransferase 78(H) 0 - 55 unit/L [facility] MILLENNIUM Alkaline Phosphatase 64 40 - 120 unit/L CERN[facility] MILLENNIUM Bilirubin, Total 0.4 0.2 - 1.3 mg/dL CERNER MILLENNIUM Comment:result rechecked-[facility] Bilirubin, Direct 0.2 0.0 - 0.3 mg/dL [facility] MILLENNIUM Blood specimen (specimen) 02/17/2010 4:30 AM EST 02/17/2010 5:01 AM EST Guille Zazueta MD CHEMISTRY ORDERABLES [facility] POOLEN[facility] * (ABNORMAL) REFLEX LAB-A-DIFF (02/17/2010 4:30 AM EST) Pathologist [facility] [place] Neutrophil % 48.1 34.0 - 71.0 % CERNER MILLENNIUM Neutrophil Absolute 1.34(L) 1.50 - 6.30 x10(3)/mc L CERN[facility] MILLENNIUM Lymph % 36.9 19.0 - 53.0 % CERN[facility] MILLENNIUM Lymphocytes Abs 1.0 1.0 - 3.6 x10(3)/mc L [facility] MILLENNIUM Monocyte % 10.0 4.0 - 13.0 % [facility] MILLENNIUM Monocyte Abs 0.3 0.2 - 1.0 x10(3)/mc L [facility] MILLENNIUM Eos % 3.2 0.0 - 7.0 % [facility] MILLENNIUM Eosinophils Abs 0.1 0.0 - 0.5 x10(3)/mc L C[facility] MILLENNIUM Basophil % 0.7 0.0 - 2.0 % CERNER MILLENNIUM Baso Absolute 0.0 0.0 - 0.2 x10(3)/mc L [facility] MILLENNIUM Immature Gran % 1.10(H) 0.00 - 0.66 % CERNER MILLENNIUM Comment: Immature granulocytes(IG's)percentage and absolute count will include metamyelocytes, myelocytes, and promyelocytes. Blood smears from CBC's yielding IG's will be scanned manually for concordance. If this scan disagrees with the automated IG or if promyelocytes are noted, a manual differential will be performed. Immature Gran Absolute 0.03 0.00 - 0.05 x10(3)/mc L [facility] MILLENNIUM Blood specimen (specimen) 02/17/2010 4:30 AM EST 02/17/2010 5:01 AM EST Guille Zazueta MD HEMATOLOGY ORDERABLE S [facility] POOL[facility] * (ABNORMAL) CBC (02/17/2010 4:30 AM EST) White Blood Cell 2.8(L) 4.0 - 10.0 x10(3)/mc L [facility] MILLENNIUM Red Blood Cell 2.91(L) 4.63 - 6.08 x10(6)/mc L [facility] MILLENNIUM Hemoglobin 8.6(L) 13.7 - 17.5 gm/dL [facility] MILLENNIUM Hematocrit 26.0(L) 40.0 - 51.0 % CERNER MILLENNIUM Mean Cell Volume 89.3 79.0 - 92.0 fL CERNER MILLENNIUM Mean Cell Hemoglobin 29.6 25.6 - 32.2 pg CERNER MILLENNIUM Mean Cell Hemoglobin Concentration 33.1 32.0 - 36.5 gm/dL CERNER MILLENNIUM Platelet 95(L) 145 - 370 x10(3)/mc L [facility] MILLENNIUM RDW Standard Deviation 54.8(H) 35.0 - 46.0 fL C[facility]ER MILLENNIUM RDW coefficient of variation 17.0(H) 10.9 - 14.4 % [facility] MILLENNIUM Mean Platelet Volume 9.0 9.0 - 12.0 fL [facility] MILLENNIUM Blood specimen (specimen) 02/17/2010 4:30 AM EST 02/17/2010 5:01 AM EST Guille Zazueta MD HEMATOLOGY ORDERABLE S Performing Organization Address City/[facility] Co de Phone Number THEO POOLENNIUM * (ABNORMAL) HEMOGLOBIN AND HEMATOCRIT, BLOOD (02/16/2010 11:50 PM EST) Hemoglobin 8.9(L) 13.7 - 17.5 gm/dL [facility] MILLENNIUM Hematocrit 26.8(L) 40.0 - 51.0 % [facility] MILLENNIUM Blood specimen (specimen) 02/16/2010 11:50 PM EST 02/16/2010 11:55 PM EST Guille Zazueta MD HEMATOLOGY ORDERABLE S Performing Organization Address [facility] Phone Number THEO FONTANAIUM * (ABNORMAL) HEMOGLOBIN AND HEMATOCRIT, BLOOD (02/16/2010 6:45 PM EST) Hemoglobin 8.9(L) 13.7 - 17.5 gm/dL [facility] MILLENNIUM Hematocrit 26.5(L) 40.0 - 51.0 % [facility]ER MILLENNIUM Blood specimen (specimen) 02/16/2010 6:45 PM EST 02/16/2010 6:52 PM EST Guille Zazueta MD HEMATOLOGY ORDERABLE S Performing Organization Address [facility] Co de Phone Number THEO POOLENNIUM * (ABNORMAL) HEMOGRAM (02/16/2010 1:50 PM EST) White Blood Cell 2.3(L) 4.0 - 10.0 x10(3)/mc L CERNER MILLENNIUM Red Blood Cell 2.96(L) 4.63 - 6.08 x10(6)/mc L CERNER MILLENNIUM Hemoglobin 8.7(L) 13.7 - 17.5 gm/dL [facility] MILLENNIUM Hematocrit 26.1(L) 40.0 - 51.0 % CERNER MILLENNIUM Mean Cell Volume 88.2 79.0 - 92.0 fL CERNER MILLENNIUM Mean Cell Hemoglobin 29.4 25.6 - 32.2 pg CERNER MILLENNIUM Mean Cell Hemoglobin Concentration 33.3 32.0 - 36.5 gm/dL [facility]ERN[facility] MILLENNIUM Platelet 82(L) 145 - 370 x10(3)/mc L [facility]ER MILLENNIUM RDW Standard Deviation 54.7(H) 35.0 - 46.0 fL [facility] MILLENNIUM RDW coefficient of variation 17.3(H) 10.9 - 14.4 % CERNER MILLENNIUM Mean Platelet Volume 8.8(L) 9.0 - 12.0 fL [facility] MILLENNIUM Blood specimen (specimen) 02/16/2010 1:50 PM EST 02/16/2010 2:04 PM EST Guille Zazueta MD HEMATOLOGY ORDERABLE S CERNER CORINEENNIUM * REFLEX LAB-SCAN (02/16/2010 4:45 AM EST) Pathologist [facility] [place] Plat estimate Decreased CERNER MILLENNIUM RBC Morphology Normal CERNE R MILLENNIUM Blood specimen (specimen) 02/16/2010 4:45 AM EST 02/16/2010 5:02 AM EST Guille Zazueta MD HEMATOLOGY ORDERABLE S [facility] MILLENNIUM * (ABNORMAL) REFLEX LAB-A-DIFF (02/16/2010 4:45 AM EST) Pathologist [facility] [place] Neutrophil % 40.4 34.0 - 71.0 % CERNER MILLENNIUM Neutrophil Absolute 1.09(L) 1.50 - 6.30 x10(3)/mc L CERNER MILLENNIUM Lymph % 46.3 19.0 - 53.0 % [facility] MILLENNIUM Lymphocytes Abs 1.3 1.0 - 3.6 x10(3)/mc L [facility] MILLENNIUM Monocyte % 8.5 4.0 - 13.0 % [facility]ERNER MILLENNIUM Monocyte Abs 0.2 0.2 - 1.0 x10(3)/mc L [facility] MILLENNIUM Eos % 3.7 0.0 - 7.0 % CERNER MILLENNIUM Eosinophils Abs 0.1 0.0 - 0.5 x10(3)/mc L [facility] MILLENNIUM Basophil % 0.4 0.0 - 2.0 % CERNER MILLENNIUM Baso Absolute 0.0 0.0 - 0.2 x10(3)/mc L [facility] MILLENNIUM Immature Gran % 0.70(H) 0.00 - 0.66 % CERNER MILLENNIUM Comment: Immature granulocytes(IG's)percentage and absolute count will include metamyelocytes, myelocytes, and promyelocytes. Blood smears from CBC's yielding IG's will be scanned manually for concordance. If this scan disagrees with the automated IG or if promyelocytes are noted, a manual differential will be performed. Immature Gran Absolute 0.02 0.00 - 0.05 x10(3)/mc L [facility] MILLENNIUM Blood specimen (specimen) 02/16/2010 4:45 AM EST 02/16/2010 5:02 AM EST Guille Zazueta MD HEMATOLOGY ORDERABLE S THEO FONTANAIUM * (ABNORMAL) CBC (02/16/2010 4:45 AM EST) White Blood Cell 2.7(L) 4.0 - 10.0 x10(3)/mc L [facility]ERNER MILLENNIUM Red Blood Cell 2.81(L) 4.63 - 6.08 x10(6)/mc L CERNER MILLENNIUM Hemoglobin 8.4(L) 13.7 - 17.5 gm/dL CERN[facility] MILLENNIUM Hematocrit 24.6(L) 40.0 - 51.0 % CERNER MILLENNIUM Mean Cell Volume 87.5 79.0 - 92.0 fL CERNER MILLENNIUM Mean Cell Hemoglobin 29.9 25.6 - 32.2 pg CERNER MILLENNIUM Mean Cell Hemoglobin Concentration 34.1 32.0 - 36.5 gm/dL [facility] MILLENNIUM Platelet 90(L) 145 - 370 x10(3)/mc L CERNER MILLENNIUM RDW Standard Deviation 52.5(H) 35.0 - 46.0 fL CERNER MILLENNIUM RDW coefficient of variation 16.5(H) 10.9 - 14.4 % [facility]ERNER MILLENNIUM Mean Platelet Volume 8.8(L) 9.0 - 12.0 fL [facility] MILLENNIUM Blood specimen (specimen) 02/16/2010 4:45 AM EST 02/16/2010 5:02 AM EST Guille Zazueta MD HEMATOLOGY ORDERABLE S Performing Organization Address [facility] de Phone Number THEO FONTANAIUM * BUN (02/16/2010 4:45 AM EST) Blood Urea Nitrogen 16 10 - 20 mg/dL CERNER MILLENNIUM Blood specimen (specimen) 02/16/2010 4:45 AM EST 02/16/2010 5:02 AM EST Guille Zazueta MD CHEMISTRY ORDERABLES Performing Organization Address City/[facility] Co de Phone Number THEO POOLENNIUM * (ABNORMAL) PHOSPHORUS (02/16/2010 4:45 AM EST) Phosphorus 4.7(H) 2.5 - 4.5 mg/dL [facility] MILLENNIUM Blood specimen (specimen) 02/16/2010 4:45 AM EST 02/16/2010 5:02 AM EST Guille Zazueta MD CHEMISTRY ORDERABLES Performing Organization Address City/[facility] Co de Phone Number THEO POOLENNIUM * (ABNORMAL) HEPATIC FUNCTION PANEL (02/16/2010 4:45 AM EST) Protein, Total 5.2(L) 6.4 - 8.3 gm/dL CERNER MILLENNIUM Albumin 3.0(L) 3.2 - 5.2 gm/dL CERNER MILLENNIUM Aspartate Aminotransferase 100(H) 0 - 39 unit/L [facility]ERN[facility] MILLENNIUM Alanine Aminotransferase 82(H) 0 - 55 unit/L [facility] MILLENNIUM Alkaline Phosphatase 63 40 - 120 unit/L [facility] MILLENNIUM Bilirubin, Total 1.8(H) 0.2 - 1.3 mg/dL [facility] MILLENNIUM Bilirubin, Direct 0.7(H) 0.0 - 0.3 mg/dL CERNER MILLENNIUM Comment:result rechecked-[facility] Blood specimen (specimen) 02/16/2010 4:45 AM EST 02/16/2010 5:02 AM EST Guille Zazueta MD CHEMISTRY ORDERABLES Performing Organization Address City/[facility] Co de Phone Number [facility] MILLENNIUM * MAGNESIUM (02/16/2010 4:45 AM EST) Magnesium 0.75 0.69 - 1.07 mmol/L [facility] MILLENNIUM Blood specimen (specimen) 02/16/2010 4:45 AM EST 02/16/2010 5:02 AM EST Guille Zazueta MD CHEMISTRY ORDERABLES Performing Organization Address [facility]/State/[facility] Co de Phone Number [facility] * CREATININE, SERUM (02/16/2010 4:45 AM EST) Creatinine 0.83 0.80 - 1.50 mg/dL CERNER MILLENNIUM Est Glomerular Filtration Rate >60 >=60 CERNER MILLENNIUM Comment: The National Kidney Disease Education Program (NKDEP) has recommended all laboratories report estimated GFR (eGFR) along with plasma creatinine measurements to assist you with recognition of early kidney disease. Caveats: ??Plasma creatinine should be at steady-state (unchanged within the past week). ??Patient age > = 18 years, and for Americans multiply eGFR by 1.2. At present, NKDEP does NOT recommend using [...] disease. References: http://nkdep.nih.gov/resources/NKDEP_Suggestn4Labs_0606_508.pdf http://www.kidney.org/professionals/kls/pdf/faq_gfr.pdf Blood specimen (specimen) 02/16/2010 4:45 AM EST 02/16/2010 5:02 AM EST Guille Zazueta MD CHEMISTRY ORDERABLES Performing Organization Address [facility] de Phone Number [facility] MILLENNIUM * (ABNORMAL) CALCIUM (02/16/2010 4:45 AM EST) Calcium 7.8(L) 8.5 - 10.5 mg/dL [facility]ERNER MILLENNIUM Blood specimen (specimen) 02/16/2010 4:45 AM EST 02/16/2010 5:02 AM EST Guille Zazueta MD CHEMISTRY ORDERABLES Performing Organization Address [facility] Co de Phone Number [facility] MILLENNIUM * ELECTROLYTE PANEL (02/16/2010 4:45 AM EST) Sodium 139 135 - 145 mmol/L CERNER MILLENNIUM Potassium 3.6 3.5 - 5.0 mmol/L [facility]ERN[facility] MILLENNIUM Comment: Please note: ??Patients with WBC >100,000 may have falsely elevated Potassium levels. ??For accurate Potassium quantification in these patients send serum separator tube (gold top) for subsequent determinations. ??Contact the Clinical Chemistry Laboratory if there are any questions. Chloride 106 98 - 107 mmol/L [facility] MILL[facility] Carbon Dioxide 25 22 - 31 mmol/L [facility] MILLENNIUM Anion Gap 8 5 - 15 mmol/L [facility] MILL[facility] Blood specimen (specimen) 02/16/2010 4:45 AM EST 02/16/2010 5:02 AM EST Guille Zazueta MD CHEMISTRY ORDERABLES Performing Organization Address [facility] Phone Number [facility] * APTT (02/16/2010 4:45 AM EST) Partial Thromboplastin Time 30 25 - 37 sec [facility] Comment: Recommended therapeutic PTT range for full dose unfractionated heparin is 80-114 seconds. Blood specimen (specimen) 02/16/2010 4:45 AM EST 02/16/2010 5:02 AM EST Guille Zazueta MD HEMATOLOGY ORDERABLE S Performing Organization Address [facility] Phone Number [facility] * (ABNORMAL) PROTIME-INR (02/16/2010 4:45 AM EST) Prothrombin Time 15.6(H) 11.8 - 15.0 sec [facility] Comment: [facility] Transfusion Committee Guidelines: INR less than 2.0, PTT less than OR equal to 43.5 seconds, or Fibrinogen greater than or equal to 100 mg/dl indicate adequate procoagulant activity for hemostasis in patients without underlying bleeding disorders. International Normalization Ratio 1.2(H) 0.9 - 1.1 [facility] MILLENNIUM Blood specimen (specimen) 02/16/2010 4:45 AM EST 02/16/2010 5:02 AM EST Guille Zazueta MD HEMATOLOGY ORDERABLE S Performing Organization Address [facility] Phone Number [facility] * POCT GLUCOMETER ORDER (LAB USE ONLY) (02/15/2010 11:10 PM EST) Glucose, POC 97 70 - 110 mg/dL [facility] Comment: Supplemental ranges: <110 mg/dL before meals <200 mg/dL all other times of the day Blood specimen (specimen) 02/15/2010 11:10 PM EST 02/15/2010 11:10 PM EST Ana M Strong MD POINT OF CARE TEST O RDERABLES Performing Organization Address [facility] Co de Phone Number [facility] * REFLEX LAB-AB COMMENT (02/15/2010 6:45 PM EST) Ab Information INTERPRETATION: The patient's specimen has two red cell alloantibodies, anti-E, and anti-c, that are capable of causing hemolysis. At present only anti-c is detectable, the presence of anti-E cannot be confirmed. However, reportedlty the patient has documentation from the outside hospital which lists both anti-c and anti-E antibodies. Future units for transfusion will need to be selected as antigen negative and compatible at the antiglobulin phase. ??Approximately 14% of appropriate units should lack these two antigens. These steps will require additional preparation time, but compatible units should be identifiable in inventory. ZMS 02/23/2010 [facility] Comment: Howard Llamas, Pathologist Verified:02/23/10 Blood specimen (specimen) 02/15/2010 6:45 PM EST 02/15/2010 7:01 PM EST Guille Zazueta MD BLOOD BANK LAB ORDER CLAUDIO Performing Organization Address [facility] de Phone Number [facility] * BLOOD TYPING, ANTIGEN SCREEN (02/15/2010 6:45 PM EST) Pathologist [facility] [place] Antigen Type c- c- c+ [facility] Blood specimen (specimen) 02/15/2010 6:45 PM EST 02/15/2010 8:41 PM EST Guille Zazueta MD BLOOD BANK LAB ORDER CLAUDIO Performing Organization Address [facility] Co de Phone Number [facility] JOSSE[facility] * BLOOD TYPING, ANTIGEN SCREEN (02/15/2010 6:45 PM EST) Antigen Type E+ E- E- [facility] ARCOS Blood specimen (specimen) 02/15/2010 6:45 PM EST 02/15/2010 9:20 PM EST Guille Zazueta MD BLOOD BANK LAB ORDER CLAUDIO Performing Organization Address City/[facility] Co de Phone Number [facility] * DIRECT ANTIGLOBULIN TEST (02/15/2010 6:45 PM EST) HERIBERTO Poly Negative [facility] Blood specimen (specimen) 02/15/2010 6:45 PM EST 02/15/2010 9:09 PM EST Guille Zazueta MD BLOOD BANK LAB ORDER CLAUDIO Performing Organization Address City/[facility] Co de Phone Number [facility] * REFLEX LAB-ANTIBODY IDENTIFICATION (02/15/2010 6:45 PM EST) Ab Identified Anti-E Anti-c THE[facility] ARCOS Blood specimen (specimen) 02/15/2010 6:45 PM EST 02/15/2010 7:01 PM EST Guille Zazueta MD BLOOD BANK LAB ORDER CLAUDIO Performing Organization Address City/[facility]/ZIP Co de Phone Number [facility] * REFLEX LAB-ANTIBODY SCREEN (02/15/2010 6:45 PM EST) Ab Screen Interp Positive [facility] Expires at [phone] on: [id number] [facility] Blood specimen (specimen) 02/15/2010 6:45 PM EST 02/15/2010 7:01 PM EST Guille Zazueat MD BLOOD BANK LAB ORDER CLAUDIO [facility] [facility] * REFLEX LAB-ABO/RH (02/15/2010 6:45 PM EST) ABORH Type A Pos [facility] Blood specimen (specimen) 02/15/2010 6:45 PM EST 02/15/2010 7:01 PM EST Guille Zazueta MD BLOOD BANK LAB ORDER CLAUDIO Performing Organization Address [facility] de Phone Number [facility] POOLEN[facility]UM * PHOSPHORUS (02/15/2010 6:45 PM EST) Phosphorus 4.2 2.5 - 4.5 mg/dL [facility] Blood specimen (specimen) 02/15/2010 6:45 PM EST 02/15/2010 7:00 PM EST Guille Zazueta MD CHEMISTRY ORDERABLES Performing Organization Address [facility] Phone Number [facility] POOLENNIUM * MAGNESIUM (02/15/2010 6:45 PM EST) Magnesium 0.76 0.69 - 1.07 mmol/L [facility] Blood specimen (specimen) 02/15/2010 6:45 PM EST 02/15/2010 7:00 PM EST Guille Zazueta MD CHEMISTRY ORDERABLES Performing Organization Address [facility] Phone Number [facility] POOLENNIUM * (ABNORMAL) HEPATIC FUNCTION PANEL (02/15/2010 6:45 PM EST) Protein, Total 6.1(L) 6.4 - 8.3 gm/dL [facility] Albumin 3.3 3.2 - 5.2 gm/dL [facility] Aspartate Aminotransferase 118(H) 0 - 39 unit/L [facility] Alanine Aminotransferase 89(H) 0 - 55 unit/L [facility] Alkaline Phosphatase 75 40 - 120 unit/L [facility] Bilirubin, Total 0.5 0.2 - 1.3 mg/dL [facility] Bilirubin, Direct 0.2 0.0 - 0.3 mg/dL [facility] Blood specimen (specimen) 02/15/2010 6:45 PM EST 02/15/2010 7:00 PM EST Guille Zazueta MD CHEMISTRY ORDERABLES Performing Organization Address [facility] de Phone Number THEO POOLENNIUM * ELECTROLYTE PANEL (02/15/2010 6:45 PM EST) Sodium 137 135 - 145 mmol/L [facility] Potassium 3.8 3.5 - 5.0 mmol/L [facility] Comment: Please note: ??Patients with WBC >100,000 may have falsely elevated Potassium levels. ??For accurate Potassium quantification in these patients send serum separator tube (gold top) for subsequent determinations. ??Contact the Clinical Chemistry Laboratory if there are any questions. Chloride 104 98 - 107 mmol/L [facility] Carbon Dioxide 27 22 - 31 mmol/L [facility] Anion Gap 6 5 - 15 mmol/L [facility] Blood specimen (specimen) 02/15/2010 6:45 PM EST 02/15/2010 7:00 PM EST Guille Zazueta MD CHEMISTRY ORDERABLES Performing Organization Address [facility] de Phone Number [facility] FONTANAIUM * (ABNORMAL) CREATININE, SERUM (02/15/2010 6:45 PM EST) Creatinine 0.76(L) 0.80 - 1.50 mg/dL [facility] Est Glomerular Filtration Rate >60 >=60 [facility] Comment: The National Kidney Disease Education Program (NKDEP) has recommended all laboratories report estimated GFR (eGFR) along with plasma creatinine measurements to assist you with recognition of early kidney disease. Caveats: ??Plasma creatinine should be at steady-state (unchanged within the past week). ??Patient age > = 18 years, and for Americans multiply eGFR by 1.2. At present, NKDEP does NOT recommend using [...] disease. References: http://nkdep.nih.gov/resources/NKDEP_Suggestn4Labs_0606_508.pdf http://www.kidney.org/professionals/kls/pdf/faq_gfr.pdf Blood specimen (specimen) 02/15/2010 6:45 PM EST 02/15/2010 7:00 PM EST Guille Zazueta MD CHEMISTRY ORDERABLES Performing Organization Address [facility] de Phone Number THEO ARCOS * (ABNORMAL) CALCIUM (02/15/2010 6:45 PM EST) Calcium 8.3(L) 8.5 - 10.5 mg/dL [facility]TA[facility] Blood specimen (specimen) 02/15/2010 6:45 PM EST 02/15/2010 7:00 PM EST Guille Zazueta MD CHEMISTRY ORDERABLES Performing Organization Address [facility] de Phone Number [facility] FONTANAIUM * BUN (02/15/2010 6:45 PM EST) Blood Urea Nitrogen 15 10 - 20 mg/dL [facility]ERS[facility] TeamPagesENNIUM Blood specimen (specimen) 02/15/2010 6:45 PM EST 02/15/2010 7:00 PM EST Guille Zazueta MD CHEMISTRY ORDERABLES Performing Organization Address [facility] Co de Phone Number [facility] FONTANAIUM * APTT (02/15/2010 6:45 PM EST) Partial Thromboplastin Time 30 25 - 37 sec [facility] Comment: Recommended therapeutic PTT range for full dose unfractionated heparin is 80-114 seconds. Blood specimen (specimen) 02/15/2010 6:45 PM EST 02/15/2010 7:01 PM EST Guille Zazueta MD HEMATOLOGY ORDERABLE S Performing Organization Address [facility] de Phone Number THEO ARCOS * PROTIME-INR (02/15/2010 6:45 PM EST) Prothrombin Time 14.6 11.8 - 15.0 sec [facility] Comment: [facility] Transfusion Committee Guidelines: INR less than 2.0, PTT less than OR equal to 43.5 seconds, or Fibrinogen greater than or equal to 100 mg/dl indicate adequate procoagulant activity for hemostasis in patients without underlying bleeding disorders. International Normalization Ratio 1.1 0.9 - 1.1 [facility] Blood specimen (specimen) 02/15/2010 6:45 PM EST 02/15/2010 7:01 PM EST Guille Zazueta MD HEMATOLOGY ORDERABLE S Performing Organization Address [facility] de Phone Number THEO ARCOS * (ABNORMAL) REFLEX LAB-A-DIFF (02/15/2010 6:45 PM EST) Neutrophil % 54.9 34.0 - 71.0 % [facility] MILLENNIUM Neutrophil Absolute 2.25 1.50 - 6.30 x10(3)/mc L [facility] Lymph % 33.4 19.0 - 53.0 % [facility] Lymphocytes Abs 1.4 1.0 - 3.6 x10(3)/mc L [facility] Monocyte % 8.3 4.0 - 13.0 % [facility] Monocyte Abs 0.3 0.2 - 1.0 x10(3)/mc L [facility] Eos % 2.0 0.0 - 7.0 % [facility] Eosinophils Abs 0.1 0.0 - 0.5 x10(3)/mc L [facility] Basophil % 0.7 0.0 - 2.0 % [facility] Baso Absolute 0.0 0.0 - 0.2 x10(3)/mc L [facility] Immature Gran % 0.70(H) 0.00 - 0.66 % [facility] Comment: Immature granulocytes(IG's)percentage and absolute count will include metamyelocytes, myelocytes, and promyelocytes. Blood smears from CBC's yielding IG's will be scanned manually for concordance. If this scan disagrees with the automated IG or if promyelocytes are noted, a manual differential will be performed. Immature Gran Absolute 0.03 0.00 - 0.05 x10(3)/mc L [facility] Blood specimen (specimen) 02/15/2010 6:45 PM EST 02/15/2010 7:00 PM EST Guille Zazueta MD HEMATOLOGY ORDERABLE S [facility] * (ABNORMAL) CBC (02/15/2010 6:45 PM EST) White Blood Cell 4.1 4.0 - 10.0 x10(3)/mc L [facility] Red Blood Cell 2.61(L) 4.63 - 6.08 x10(6)/mc L [facility] Hemoglobin 7.6(L) 13.7 - 17.5 gm/dL [facility] Hematocrit 23.5(L) 40.0 - 51.0 % [facility] Mean Cell Volume 90.0 79.0 - 92.0 fL [facility] Mean Cell Hemoglobin 29.1 25.6 - 32.2 pg [facility] Mean Cell Hemoglobin Concentration 32.3 32.0 - 36.5 gm/dL [facility] Platelet 115(L) 145 - 370 x10(3)/mc L [facility] RDW Standard Deviation 55.1(H) 35.0 - 46.0 fL [facility] RDW coefficient of variation 16.9(H) 10.9 - 14.4 % [facility] Mean Platelet Volume 9.1 9.0 - 12.0 fL [facility] ARCOS Blood specimen (specimen) 02/15/2010 6:45 PM EST 02/15/2010 7:00 PM EST Guille Zazueta MD HEMATOLOGY ORDERABLE S THEO ARCOS * PATHOLOGY SURGICAL PATHOLOGY FINAL REPORT (02/15/2010 7:33 AM EST) Surgical Pathology Report ? [facility] ? Provider: ?? TIFF REYES ? Pt. Name: ?? ALMA CARBALLO ? Acc #: ?[id number] ?Pt. ? Col Date: ?? 02/15/2010 ? /Sex: ?1955,(54 years),Male ? Rec Date: ?? 02/16/2010 ? LOC: ?1EST ? SURGICAL PATHOLOGY ? ---Pathologic Diagnosis--- ? 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 ?NOTE: ??The morphological features of GAVE overlap with those of reactive ?gastropathy, and in the absence of the fibrin thrombi seen in GAVE, the ?two conditions may be morphologically indistinguishable. ??Correlation ?with clinical and endoscopic findings is necessary. ? CR-0 ? 02/17/10 ? VMS ? 02/17/10 Verified by: ? Nicholas LESTER, Abraham ? Pathologist ? (Electronic Signature) ? The attending pathologist whose signature appears on this report has ? reviewed all diagnostic slides and has edited the gross and/or ? microscopic portion of the report in rendering the final pathologic ? diagnosis. ? ---Microscopic Description--- ? Slides reviewed, microscopic description not recorded. ? ---Gross Description--- ? Labeled/Fixative: ? Antral bx, formalin. ? Qty/Size/Weight: ?Three, averaging 0.2 x 0.2 x 0.1 cm. ? Tissue Description: ?? Soft, ames tissues. ? Sections/Processin g: ??(T1) ??vms/SHB ? ---Clinical Information--- ? Specimen Submitted: ? A - Gastric biopsy ? Clinical History: ? H/O cirrhosis, streaky erythematous antral mucosa ? Clinical Diagnosis: ? 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
--- OUTSIDE RECORDS SUMMARY | 2023-12-21 12:05 | XMS_ITS | Encounter Summary ---
[place] [address] Care Team Providers Care Informatics Nurse Name Role Phone Laurie Wiggins MD Primary Care Provider [phone] Encounter Details Date Type Department Care Team (Late st Contact Info) Description 03/18/2010 7:30 AM EST Office Visit Gastro[place]ology [place] [address] Roland Patterson MD [facility] [place] [address] Discharge Disposition: Home Social History Tobacco Use [...] 8:15 AM EST Office Visit Dermatology at [place] [address] [place] [phone] Jin Nunez MD [address] [place] [address] documented as of this encounter Visit Diagnoses Not on filedocumented in this encounter Care Teams Informatics Nurse Relationship Specialty Start Date End Date Laurie Wiggins MD [address] [place] [address] PCP - General 03/03/10 02/12/19 documented as of this encounter
--- OUTSIDE RECORDS SUMMARY | 2023-12-21 12:06 | XMS_ITS | Encounter Summary ---
Author Organization [facility] Address [address] [place] [address] Care Team Providers Care Apartment House Manager Name Role Phone Katia Blanco FOLDER GLUER OPERATOR Primary Care Provider [phone] George Lou RPA Primary Care Provider [phone] Encounter Details Date Type Department Care Team (Late st Contact Info) Description 11/02/2019 Lab Requisition [facility] Pathology & Laboratory Medicine - [facility] [address], [place] [address] Outr Resulting Lab, Provider Social History Tobacco Use Types Packs/Day Years [...] Info) Description 01/23/2024 10:00 EDT Office Visit [facility] General Surgery - [facility] [address], [place] [address] Bon Gutierrez MD [address] [facility], [address] [place] [phone] 09/10/2024 10:00 EDT Appointment Shaina Bergeron Ultrasound [address] [place], [place] [address] documented as of this encounter Procedures Procedure Name Priority Date/Time Associated Diagnosis Comments ZZCOVID-19 TEST [facility] PCR Today 11/02/2019 15:50 EDT COVID-19 TESTING Routine 11/02/2019 15:5 0 EDT documented in this encounter Results * COVID-19 TEST [facility] PCR (11/02/2019 15:50 EDT) Swab ENTIRE NASOPHARYNX / Unknown 11/02/2019 15:50 EDT 11/02/2019 20:23 EDT Provider Outr Resulting Lab MICROBIOLOGY - GENERAL ORDERABLES [facility] [address] [place] [address] * COVID-19 TESTING (11/02/2019 15:50 EDT) COVID-19 rt-PCR Result Negative Negative 11/03/2019 0:36 EDT [facility] Comment: This test has not been FDA cleared or approved. This test has been authorized by FDA under an EUA for use by authorized laboratories. This test has been authorized only for detection of nucleic acid from 2019-nCoV, not for any other viruses or pathogens. This test is only authorized for the duration of the declaration that circumstances exist justifying the authorization of emergency use of in vitro diagnostic tests for detection and/or diagnosis of 2019-nCoV under section 564(b)(1) of Act, 21 U.S.C ?? 360bbb-3(b) (1), unless the authorization is terminated or revoked sooner. Negative results do not preclude 2019-nCoV infection and should not be used as the sole basis for treatment or other patient management decisions. Negative results must be combined with clinical observations, patient history, and epidemiological information. Performed on the [employer] Fusion instrument Performing Lab [place] [facility] 11/03/2019 0:36 EDT [facility] Swab 11/02/2019 15:5 0 EDT 11/02/2019 20:23 EDT Provider Outr Resulting Lab MICROBIOLOGY - GENERAL ORDERABLES Performing Organization Address City/State/[facility] Co de Phone Number [facility] [address] [place] [address] documented in this encounter Visit Diagnoses Not on filedocumented in this encounter Care Teams Apartment House Manager Relationship Specialty Start Date End Date Katia Blanco FNP [address] [place], [place] [id number] PCP - General 03/26/19 09/20/22 George Lou RPA [address] [id number] PCP - General Family Medicine - Primary Care 09/21/22 documented as of this encounter
--- OUTSIDE RECORDS SUMMARY | 2023-12-21 12:06 | XMS_ITS | Encounter Summary ---
Author Organization [facility] Address [address] [place] [address] Care Team Providers Care Head Of Physics Name Role Phone Katia Blanco IMANI Primary Care Provider [phone] Reason for Visit * Reason Onset Date Comments Appointment Related 06/24/2021 Encounter Details Date Type Department Care Team (Late st Contact Info) Description 06/24/[address] [facility] Interventional Radiology - [address] [id number] Guicho Rosales MD [address] [place] [address] [address] [place] [address] Appointment Related Social History Tobacco [...] * Telephone Encounter - Lizy Hull - 06/24/2021 1688 EDT Incoming voicemail from Alonzo regarding follow up planning with Dr. Rosales on 06/30 Patient is cancelling ultrasound as well as visit with Dr. Rosales and would not like to r/s at thistime No insight as to why these appts are being cancelled again. I will notify team. documented in this encounter Plan of Treatment Upcoming Encounters Date Type Department Care Team (Late st Contact Info) Description 01/23/2024 10:00 EDT Office Visit [facility] General Surgery - [address] [phone] Bon Gutierrez MD [address] [facility], [address] [place] [phone] 09/10/2024 10:00 EDT Appointment Shaina Bergeron Ultrasound [address] [place] [address] documented as of this encounter Visit Diagnoses Not on filedocumented in this encounter Care Teams Head Of Physics Relationship Specialty Start Date End Date Katia Blanco FNP [address] [place] [address] PCP - General 03/26/19 09/20/22 documented as of this encounter
--- OUTSIDE RECORDS SUMMARY | 2023-12-21 12:06 | XMS_ITS | Encounter Summary ---
Author Organization [facility] Address [address] [place] [address] Care Team Providers Care Clinical Appeals Rn Name Role Phone Katia Blanco Primary Care Provider [phone] Reason for Visit * Reason Onset Date Comments Medication Management 05/17/2019 Encounter Details Date Type Department Care Team (Late st Contact Info) Description 05/17/2019 Telephone [facility] Gastroenterology - [address] [address] Jennifer Real, automobile service writer Management Social History Tobacco Use Types Packs/Day Years [...] No 08/09/2018 documented as of this encounter Ordered Prescriptions Prescription Sig Dispensed Refills Start Date End Da te zinc sulfate (ZINCATE) 220 (50) mg capsule Take 1 Cap by mouth 3 times daily. 90 Cap 1 05/17/2019 documented in this encounter Miscellaneous Notes * Telephone Encounter - Jennifer Real RN - 05/17/2019 0963 EST Patient is zinc deficient - please arrange for prescription for zinc sulfate (220 mg): take 3 daily- per Dr Duran. Prescription sent to pharmacy. Patient is aware. He will follow up with his industrial order clerk. documented in this encounter Plan of Treatment Upcoming Encounters Date Type Department Care Team (Late st Contact Info) Description 01/23/2024 10:00 EDT Office Visit [facility] General Surgery - [address] [phone] Bon Gutierrez MD [address] [facility], [address] [place] [phone] 09/10/2024 10:00 EDT Appointment Shaina Mejia [address] [place], [place] [address] documented as of this encounter Visit Diagnoses Not on filedocumented in this encounter Discontinued Medications Medication Sig Discontinue Reason Start Date End Da te zinc sulfate (ZINCATE) 220 (50) mg capsule Take 1 Cap by mouth 3 times daily. Reorder 05/17/2019 05/17/2019 documented as of this encounter Care Teams Clinical Appeals Rn Relationship Specialty Start Date End Date Katia Blanco FNP [facility] [place] [address] PCP - General 03/26/19 09/20/22 documented as of this encounter
--- OUTSIDE RECORDS SUMMARY | 2023-12-21 12:06 | XMS_ITS | Encounter Summary ---
Author Organization [facility] Address [address] [place] [address] Care Team Providers Care Soft Iron Inspector Name Role Phone Katia Blanco IMANI Primary Care Provider [phone] Reason for Visit * Reason Onset Date Comments Appointment Related 07/06/2021 IR follow up Encounter Details Date Type Department Care Team (Late st Contact Info) Description 07/06/2021 Telephone [facility] Interventional Radiology - [facility] [address] [place] [address] Melissa uMnroe, RN [address] [place] [address] Appointment Related (IR follow up) Social History Tobacco Use Types Packs/Day Years [...] encounter Miscellaneous Notes * Telephone Encounter - Melissa Murnoe, RN - 07/06/2021 0928 EDT VM left from patient regarding IR follow up. Pt is s/p TIPS, overdue for follow up due to no shows/missed appointments. I tried to call patient back, but I was unable to reach him. I left a message with request to call radiology scheduling directly to set up ultrasound documented in this encounter Plan of Treatment Upcoming Encounters Date Type Department Care Team (Late st Contact Info) Description 01/23/2024 10:00 EDT Office Visit [facility] General Surgery - [facility] [address] [place], [place] [address] Bon Gutierrez MD [address] [facility], [address] [place] [phone] 09/10/2024 10:00 EDT Appointment Shaina Bergeron Ultrasound [address] [place], [place] [address] documented as of this encounter Visit Diagnoses Not on filedocumented in this encounter Care Teams Soft Iron Inspector Relationship Specialty Start Date End Date Katia [place] [address] PCP - General 03/26/19 09/20/22 documented as of this encounter
--- OUTSIDE RECORDS SUMMARY | 2023-12-21 12:06 | XMS_ITS | Encounter Summary ---
Author Organization [facility] Address [address] [place] [address] Care Team Providers Care Automobile Technician Name Role Phone Katia Blanco OPTICAL DISPENSER Primary Care Provider [phone] George Lou RPA Primary Care Provider [phone] Encounter Details Date Type Department Care Team (Late st Contact Info) Description 09/14/[address] Lab Re[address] [facility] Pathology & Laboratory Medicine - [facility] [address] [place], [place] [id number] Outr Resulting Lab, Provider Social History Tobacco [...] 10:00 EDT Office Visit [facility] General Surgery - [facility] [address] [place], [place] [address] Bon Gutierrez MD [address] [facility], [address] [place] [phone] 09/10/2024 10:00 EDT Appointment Shaina Bergeron Ultrasound [address] [place], [place] [address] documented as of this encounter Procedures Procedure Name Priority Date/Time Associated Diagnosis Comments AFP TUMOR MARKER Routine 09/14/2019 11:3 5 EDT documented in this encounter Results * AFP TUMOR MARKER (09/14/2019 11:35 EDT) AFP Tumor Marker 4.0 <8.1 ng/mL 09/17/2019 12:05 EDT [facility] Comment: AFP Tumor Marker cannot be interpreted in females. ?? NOTE: Serum AFP concentrations should not be interpreted as absolute evidence for the presence or absence of malignant disease. Assayed on Siemens ADVIA Centaur XPT using chemiluminescent technology. ??Values obtained by using different assay methods cannot be used interchangeably. Blood VENOUS BLOOD / Unknown 09/14/2019 11:35 EDT 09/14/2019 15:59 EDT Provider Outr Resulting Lab CHEMISTRY & BLOOD GAS ORDERABLES [facility] [address] [place] [address] documented in this encounter Visit Diagnoses Not on filedocumented in this encounter Care Teams Automobile Technician Relationship Specialty Start Date End Date Katia Blanco FNP [address] [place] [address] PCP - General 03/26/19 09/20/22 George Lou RPA [address] [facility] [address] [place] [address] PCP - General Family Medicine - Primary Care 09/21/22 documented as of this encounter
--- OUTSIDE RECORDS SUMMARY | 2023-12-21 12:06 | XMS_ITS | Encounter Summary ---
Author Organization [facility] Address [address] [place] [address] Care Team Providers Care Sign Out Clerk Name Role Phone Katia Blanco IMANI Primary Care Provider [phone] Reason for Referral * Vascular Lab (Routine) - Closed Specialty Diagnoses / Procedures Referred By [facility] Referred To Contact Diagnoses Cirrhosis of liver without ascites, unspecified hepatic cirrhosis type (HCC-CMS) Procedures US HEPATOPORTAL VEIN DUPLEX Guicho Rosales MD [address] [place] [phone] Referral ID Status Reason Start Date Expiration Date Visits Re quested Visits Authorized [id number] Closed 01/01/2020 1 1 Encounter Details Date Type Department Care Team (Late st Contact Info) Description 01/01/2020 Orders Only [facility] [place] [address] Guicho Rosales MD [address] [place] [phone] Cirrhosis of liver without ascites, unspecified hepatic cirrhosis type (HCC-CMS) (Primary Dx) Social History Tobacco Use [...] Info) Description 01/23/2024 10:00 EDT Office Visit [facility] General Surgery - [address] [phone] Bon Gutierrez MD 111 [facility], [facility], Level [address] [place] [address] 09/10/2024 10:00 EDT Appointment Shaina Bergeron Ultrasound [address] [place] [address] documented as of this encounter Results * US HEPATOPORTAL VEIN DUPLEX (01/09/2020 9:43 EDT) Anatomical Region Laterality Modality Vascular Ultrasound 01/09/2020 12:5 9 EDT Impressions 01/09/2020 12:59 EDT 1. ??Patent TIPS without evidence of high-grade stenosis or occlusion. The previously identified elevated shunt velocities are likely artifactual secondary to limited window availability. 2. ??Redemonstrated hepatic cirrhosis. No focal hepatic lesions are identified. I have personally reviewed the images and the above interpretation and agree with the findings. Narrative 01/09/2020 12:59 EDT US HEPATOPORTAL VEIN DUPLEX ??01/09/2020 8:30 AM SIGNS AND SYMPTOMS/COMMENTS: Hepatic cirrhosis, status post TIPS COMPARISONS: Hepatoportal venous duplex ultrasound from 04/24/2019 TECHNIQUE: Grayscale, color Doppler, spectral Doppler, and cine sweep ultrasound images of the liver were obtained. FINDINGS: LIVER: The liver measures 11.7 cm in length, which is normal. Liver parenchyma demonstrates diffuse echogenic coarsening and a micronodular contour. No focal hepatic lesions are identified. DOPPLER EVALUATION: Main Portal Vein: 21.8 cm/s, Normal/towards TIPS, previously 44.5 cm/s Shunt (proximal): 89.1 cm/s, Normal/towards IVC, previously 26.9 cm/s Shunt (mid): 84.3 cm/s, Normal/towards IVC, previously 51.1 cm/s Shunt (distal): 93.4 cm/s, Normal/towards IVC, previously 96.0 cm/s Right Hepatic Vein: Normal/away fromTIPS, previously 93.4 cm/s Right Portal Vein: Normal/towards TIPS Left Portal Vein: ??Normal/towards TIPS FREE FLUID: No free fluid is present in the right upper quadrant of the abdomen. VARICES: Varices are not identified PARAUMBILICAL VEIN: Paraumbilical vein is not identified. VESSEL DIAMETERS: Main Portal Vein: Tidal Respiration 15 cm Procedure Note Norbert Fernandez MD - 01/09/2020 US HEPATOPORTAL VEIN DUPLEX 01/09/2020 8:30 AM SIGNS AND SYMPTOMS/COMMENTS: Hepatic cirrhosis, status post TIPS COMPARISONS: Hepatoportal venous duplex ultrasound from 04/24/2019 TECHNIQUE: Grayscale, color Doppler, spectral Doppler, and cine sweepultrasound images of the liver were obtained. FINDINGS: LIVER: The liver measures 11.7 cm in length, which is normal. Liverparenchyma demonstrates diffuse echogenic coarsening and a micronodularcontour. No focal hepatic lesions are identified. DOPPLER EVALUATION: Main Portal Vein: 21.8 cm/s, Normal/towards TIPS, previously 44.5 cm/s Shunt (proximal): 89.1 cm/s, Normal/towards IVC, previously 26.9 cm/s Shunt (mid): 84.3 cm/s, Normal/towards IVC, previously 51.1 cm/s Shunt (distal): 93.4 cm/s, Normal/towards IVC, previously 96.0 cm/s Right Hepatic Vein: Normal/away fromTIPS, previously 93.4 cm/s Right Portal Vein: Normal/towards TIPS Left Portal Vein: Normal/towards TIPS FREE FLUID: No free fluid is present in the right upper quadrant of theabdomen. VARICES: Varices are not identified PARAUMBILICAL VEIN: Paraumbilical vein is not identified. VESSEL DIAMETERS: Main Portal Vein: Tidal Respiration 15 cm IMPRESSION 1. Patent TIPS without evidence of high-grade stenosis or occlusion. Thepreviously identified elevated shunt velocities are likely artifactualsecondary to limited window availability. 2. Redemonstrated hepatic cirrhosis. No focal hepatic lesions areidentified. I have personally reviewed the images and the above interpretation andagree with the findings. Guicho Rosales MD IMG US VASCU LAR ORDERABLES documented in this encounter Visit Diagnoses Diagnosis Cirrhosis of liver without ascites, unspecified hepatic cirrhosis type (HCC-CMS)- Primary Cirrhosis of liver without ascites, unspecified hepatic cirrhosis type (HCC-CMS) documented in this encounter Care Teams Sign Out Clerk Relationship Specialty Start Date End Date Katia Blanco FNP [place] [place] [address] PCP - General 03/26/19 09/20/22 documented as of this encounter
--- OUTSIDE RECORDS SUMMARY | 2023-12-21 12:06 | XMS_ITS | Encounter Summary ---
Author Organization [facility] Address [address] [place] [address] Care Team Providers Care Utility Maintenance Worker Name Role Phone Katia Blanco IMANI Primary Care Provider [phone] Reason for Visit * Reason Onset Date Comments Appointment Related 07/07/2021 Encounter Details Date Type Department Care Team (Late st Contact Info) Description 07/07/2021 Telephone [facility] Interventional Radiology - [address] [id number] Guicho Rosales MD [address] [place] [address] [address] [place] [address] Appointment Related Social History Tobacco [...] encounter Miscellaneous Notes * Telephone Encounter - Elzbieta Gill - 07/07/2021 1223 EDT Incoming call from Alonzo adams about receiving a registered letter via US mail for follow up appointment, patient requesting return call from clinic staff to reschedule. documented in this encounter Plan of Treatment Upcoming Encounters Date Type Department Care Team (Late st Contact Info) Description 01/23/2024 10:00 EDT Office Visit [facility] General Surgery - [facility] [address] [place], [place] [address] Bon Gutierrez MD 111 [facility], [address] [place] [phone] 09/10/2024 10:00 EDT Appointment Shaina Mejia [address] [place] [address] documented as of this encounter Visit Diagnoses Not on filedocumented in this encounter Care Teams Utility Maintenance Worker Relationship Specialty Start Date End Date Katia Blanco FNP [facility] [facility] [place] [address] PCP - General 03/26/19 09/20/22 documented as of this encounter
--- OUTSIDE RECORDS SUMMARY | 2023-12-21 12:06 | XMS_ITS | Encounter Summary ---
Author Organization [facility] Address [address] [place] [address] Care Team Providers Care Government Teacher Name Role Phone Katia Blanco IMANI Primary Care Provider [phone] Reason for Visit * Reason Onset Date Comments Appointment Related 04/06/2019 Encounter Details Date Type Department Care Team (Late st Contact Info) Description 04/06/2019 Telephone [facility] Interventional Radiology - [address] [phone] Guicho Rosales MD [address] [place] [address] [address] [place] [address] Appointment Related Social History Tobacco [...] * Telephone Encounter - Lizy Hull - 04/09/2019 1032 EST Alonzo returned my phone call to confirm his appointment with Guicho Rosales MD on Monday 04/24. He questioned his appointment with Dr. Seals. Explained I had reached out and had not heard anything. Did not see a referral from PCP in computerwhich they may need for gastro to re establish as patient in their clinic. Alonzo explained he would reach out to PCP and Gastro office for clarification. Mr. Urbina verbalized understanding and agrees with Plan of Care. No cognitive barriers were identified during this conversation. He has our contact number to call with questions. Lizy Hull * Telephone Encounter - Lizy Hull - 04/06/2019 1158 EST I left a message for Alonzo with my name, title, and phone number, requesting a call back. Called to confirm patient is aware of US and OV with [facility] on Monday 04/24.- checking in at 0800AM for his ultrasound and office visit to follow. Requesting a call back for confirmation. documented in this encounter Plan of Treatment Upcoming Encounters Date Type Department Care Team (Late st Contact Info) Description 01/23/2024 10:00 EDT Office Visit [facility] General Surgery - [address] [phone] Bon Gutierrez MD [address] [place] [address], [facility], [address] [place] [address] 09/10/2024 10:00 EDT Appointment Shaina Bergeron Ultrasound [address] [place] [address] documented as of this encounter Visit Diagnoses Not on filedocumented in this encounter Care Teams Government Teacher Relationship Specialty Start Date End Date Katia Blanco [place] [address] PCP - General 03/26/19 09/20/22 documented as of this encounter
--- OUTSIDE RECORDS SUMMARY | 2023-12-21 12:06 | XMS_ITS | Encounter Summary ---
Author Organization [facility] Address [address] [place] [address] Care Team Providers Care Oncologist Name Role Phone Katia Blanco IMANI Primary Care Provider [phone] Reason for Visit * Reason Onset Date Comments Appointment Related 03/02/2021 Encounter Details Date Type Department Care Team (Late st Contact Info) Description 03/02/2021 Telephone [facility] Interventional Radiology - [address] [phone] Guicho Rosales MD [address] [place] [address] [address] [place] [address] Appointment Related Social History Tobacco [...] Miscellaneous Notes * Telephone Encounter - Lizy uHll - 03/02/2021 1247 EST Called and left detailed voicemail for Alonzo requesting return phone call to IR clinic line at [phone] option 1 Left details regarding plan for US @ 845am check in; followed by 10:30AM office visit with Dr. Rosales I have sent a letter in the mail with these details as well requesting he get back to us to confirmplan. documented in this encounter Plan of Treatment Upcoming Encounters Date Type Department Care Team (Late st Contact Info) Description 01/23/2024 10:00 EDT Office Visit [facility] General Surgery - [address] [phone] Bon Gutierrez MD 111 [facility], [address] [place] [phone] 09/10/2024 10:00 EDT Appointment Shaina Mejia [address] [place], [place] [address] documented as of this encounter Visit Diagnoses Not on filedocumented in this encounter Care Teams Oncologist Relationship Specialty Start Date End Date Katia Blanco [place] [address] PCP - General 03/26/19 09/20/22 documented as of this encounter
--- OUTSIDE RECORDS SUMMARY | 2023-12-21 12:06 | XMS_ITS | Encounter Summary ---
Author Organization [facility] Address [address] [place] [address] Care Team Providers Care Night Assistant Name Role Phone Katia Blanco IMANI Primary Care Provider [phone] Reason for Referral * Radiology Services (Routine/Next Available) - Authorization Not Required Specialty Diagnoses / Procedures [facility] Referred To Contact Diagnoses Alcoholic cirrhosis of liver without ascites (HCC-CMS) Procedures US LIVER/ABDOMEN VISCERAL DOPPLER Guicho Rosales MD [address] [place] [phone] [facility] Referral ID Status Reason Start Date Expiration Date Visits Requested Visits Authorized [id number] Authorization Not Required 07/20/2022 1 1 Encounter Details Date Type Department Care Team (Late st Contact Info) Description 07/20/2022 Orders Only [facility] Interventional Radiology - [place] [id number] Guicho Rosales MD [address] [place] [phone] Alcoholic cirrhosis of liver without ascites (HCC-CMS) [...] Info) Description 01/23/2024 10:00 EDT Office Visit [facility] General Surgery - [address] [phone] Bon Gutierrez MD 111 [facility], [facility], Level [address] [place] [address] 09/10/2024 10:00 EDT Appointment Shaina Bergeron Ultrasound [address] [place] [address] documented as of this encounter Results * US ABDOMEN LIMITED WITH LIMITED DUPLEX (09/21/2022 9:39 EDT) Anatomical Region Laterality Modality Abdomen Ultrasound 09/21/2022 13:3 3 EDT Impressions 09/21/2022 13:33 EDT 1. ??Patent TIPS. TIPS velocities are within normal limits. 2. ??Cirrhotic configuration of the liver 3. ??Cholelithiasis Reference: Guillermo RY, Marilyn LESTER, Nicole WD, Naresh KM, Nelly SA, [place]paula TK. Doppler sonography findings associated with transjugular intrahepatic portosystemic shunt malfunction. AJR Am J Roentgenol. 1996. May;168(2):467-72. Narrative 09/21/2022 13:33 EDT US ABDOMEN LIMITED WITH LIMITED DOPPLER ??09/21/2022 8:30 AM SIGNS AND SYMPTOMS/COMMENTS: TIPS. Check patency and look for stenosis. COMPARISONS: Prior ultrasounds, most recent September 08, 2021 TECHNIQUE: Grayscale, color Doppler, spectral Doppler, and cine sweep ultrasound images of the liver and TIPS were obtained. FINDINGS: LIVER: The liver measures 13.5 cm, which is normal. Diffusely heterogeneous echogenicity with nodular surface contour. No focal lesion identified. DOPPLER EVALUATION: Doppler evaluation of the following vessels was performed: Main Portal Vein: 60.5 cm/s, previously 23.0 cm/s. Pulsatility index: 4.8. Direction of flow is towards TIPS, previously towards TIPS. Right Portal Vein: Not visualized Left Portal Vein: Not visualized Shunt (proximal/portal vein end): 75.7 cm/s, previously 89.1 cm/s. Direction of flow is towards RHV end cm/s, previously towards RHV end. Shunt (mid): 87.4 cm/s, previously 84.3 cm/s. Direction of flow is towards RHV end cm/s, previously towards RHV end. Shunt (distal/RHV end): 108.1 cm/s, previously 93.4 cm/s. Direction of flow is towards RHV end cm/s, previously towards RHV end. Right Hepatic Vein: 112.2 cm/s, previously 93.4 cm/s. Direction of flow is away from TIPS. Splenic vein at Pancreas: not visualized. Inferior vena cava: Normal waveform. Hepatic Artery: Peak systolic velocity: Hepatic artery is not visualized FREE FLUID: No free fluid is present in the right upper quadrant of the abdomen. VARICES: Not identified. PARAUMBILICAL VEIN: Recanalized paraumbilical vein is not identified.. OTHER: -Cholelithiasis -Mild splenomegaly Procedure Note Harris Benitez MD - 09/21/2022 US ABDOMEN LIMITED WITH LIMITED DOPPLER 09/21/2022 8:30 AM SIGNS AND SYMPTOMS/COMMENTS: TIPS. Check patency and look for stenosis. COMPARISONS: Prior ultrasounds, most recent September 08, 2021 TECHNIQUE: Grayscale, color Doppler, spectral Doppler, and cine sweepultrasound images of the liver and TIPS were obtained. FINDINGS: LIVER: The liver measures 13.5 cm, which is normal. Diffuselyheterogeneous echogenicity with nodular surface contour. No focal lesionidentified. DOPPLER EVALUATION: Doppler evaluation of the following vessels was performed: Main Portal Vein: 60.5 cm/s, previously 23.0 cm/s. Pulsatility index: 4.8.Direction of flow is towards TIPS, previously towards TIPS. Right Portal Vein: Not visualized Left Portal Vein: Not visualized Shunt (proximal/portal vein end): 75.7 cm/s, previously 89.1 cm/s.Direction of flow is towards RHV end cm/s, previously towards RHV end. Shunt (mid): 87.4 cm/s, previously 84.3 cm/s. Direction of flow is towardsRHV end cm/s, previously towards RHV end. Shunt (distal/RHV end): 108.1 cm/s, previously 93.4 cm/s. Direction offlow is towards RHV end cm/s, previously towards RHV end. Right Hepatic Vein: 112.2 cm/s, previously 93.4 cm/s. Direction of flow isaway from TIPS. Splenic vein at Pancreas: not visualized. Inferior vena cava: Normal waveform. Hepatic Artery: Peak systolic velocity: Hepatic artery is not visualized FREE FLUID: No free fluid is present in the right upper quadrant of theabdomen. VARICES: Not identified. PARAUMBILICAL VEIN: Recanalized paraumbilical vein is not identified.. OTHER: -Cholelithiasis -Mild splenomegaly IMPRESSION 1. Patent TIPS. TIPS velocities are within normal limits. 2. Cirrhotic configuration of the liver 3. Cholelithiasis Reference: Guillermo RY, Marilyn LESTER, Nicole WD, Naresh KM, Nelly SA, Pilgram TK.Doppler sonography findings associated with transjugular intrahepaticportosystemic shunt malfunction. AJR Am J Roentgenol. 1996.May;168(2):927-98. Guicho Rosales MD IM US ORDER CLAUDIO documented in this encounter Visit Diagnoses Diagnosis Alcoholic cirrhosis of liver without ascites (HCC-CMS)- Primary Alcoholic cirrhosis of liver Alcoholic cirrhosis of liver without ascites (HCC-CMS) Alcoholic cirrhosis of liver documented in this encounter Care Teams Night Assistant Relationship Specialty Start Date End Date Katia Blanco FNP [address] [place] [address] PCP - General 03/26/19 09/20/22 documented as of this encounter
--- OUTSIDE RECORDS SUMMARY | 2023-12-21 12:06 | XMS_ITS | Encounter Summary ---
Author Organization [facility] Address [address] [place] [address] Care Team Providers Care Computed Tomography Scanner Operator Name Role Phone Katia Blanco Primary Care Provider [phone] Encounter Details Date Type Department Care Team (Latest Contact Info) Description 01/09/2020 Travel Social History Tobacco Use Types Packs/Day [...] 8:12 EST Sexual Orientation Not on file COVID-19 Exposure Response Date Recorded In the last month, have you been in contact with someone who was confirmed or suspected to have Coronavirus / COVID-19? No / Unsure 01/09/2020 8:05 EDT documented as of this encounter Functional Status [...] Info) Description 01/23/2024 10:00 EDT Office Visit [facility] General Surgery - [address] [phone] Bon Gutierrez MD 111 [facility], [address] [place] [phone] 09/10/2024 10:00 EDT Appointment Shaina Mejia [address] [place] [phone] documented as of this encounter Visit Diagnoses Not on filedocumented in this encounter Care Teams Computed Tomography Scanner Operator Relationship Specialty Start Date End Date Katia Blanco [place] [address] PCP - General 03/26/19 09/20/22 documented as of this encounter
--- OUTSIDE RECORDS SUMMARY | 2023-12-21 12:06 | XMS_ITS | Encounter Summary ---
Author Organization [facility] Address [address] [place] [address] Care Team Providers Care Heading Repairer Name Role Phone Katia Blanco Primary Care Provider [phone] Encounter Details Date Type Department Care Team (Late st Contact Info) Description 05/15/2019 15:00 EST Phlebotomy Only [facility] ED Center 2 Phlebotomy [address] [place] [address] Electrical Maintenance Mechanic, Acc Phlebotomy Hepatic cirrhosis, unspecified hepatic cirrhosis type, unspecified whether ascites present (HCC-CMS); Encephalopathy, hepatic (HCC-CMS) Social History Tobacco Use Types Packs/Day Years [...] 3 times daily. 90 Cap 1 05/17/2019 05/17/2019 documented in this encounter Plan of Treatment Upcoming Encounters Date Type Department Care Team (Late st Contact Info) Description 01/23/2024 10:00 EDT Office Visit [facility] General Surgery - [place] [address] [place], [place] [phone] Bon Gutierrez MD [address] [facility], [address] 5 [place] [phone] 09/10/2024 10:00 EDT Appointment Shaina Bergeron Ultrasound [address] [place] [phone] documented as of this encounter Procedures Procedure Name Priority Date/Time Associated Diagnosis Comments ZINC Routine 05/15/2019 14:57 EST Hepatic cirrhosis, unspecified hepatic cirrhosis type, unspecified whether ascites present (HCC-CMS) Encephalopathy, hepatic (HCC-CMS) PROTIME Routine 05/15/2019 14:57 EST Hepatic cirrhosis, unspecified hepatic cirrhosis type, unspecified whether ascites present (HCC-CMS) COMPLETE BLOOD COUNT Routine 05/15/2019 14:57 EST Hepatic cirrhosis, unspecified hepatic cirrhosis type, unspecified whether ascites present (HCC-CMS) COMPREHENSIVE METABOLIC PANEL (CMP) Routine 05/15/2019 14:57 EST Hepatic cirrhosis, unspecified hepatic cirrhosis type, unspecified whether ascites present (HCC-CMS) documented in this encounter Results * (ABNORMAL) ZINC (05/15/2019 14:57 EST) Zinc, S 0.56(L) 0.66 - 1.10 mcg/mL 05/16/2019 15:58 EST [facility] Comment: ADDITIONAL INFORMATION This test was developed and its performance characteristics determined by [facility] in a manner consistent with CLIA requirements. This test has not been cleared or approved by the U.S. Food and Drug Administration. Test Performed by: [facility] [place] [address] [place] [address] Manual Arts Therapy Teacher: Kojo Madison M.D. Ph.D.; CLIA# [id number] Blood VENOUS BLOOD / Unknown Venipuncture / Unknown 05/15/2019 14:57 EST 05/15/2019 15:24 EST Brody Duran MD PhD CHEMISTRY & BLO OD GAS ORDERABLES Performing Organization Address [facility] [[email or web address]] Co de Phone Number [facility] [address] [place] [address] * (ABNORMAL) PROTIME (05/15/2019 14:57 EST) Pathologist [facility] I.N.R. 1.2(H) 0.9 - 1.1 Ratio 05/15/2019 15:50 EST [facility] Pro Time 14.2(H) 10.3 - 13.4 secs 05/15/2019 15:50 EST [facility] Blood VENOUS BLOOD / Unknown Venipuncture / Unknown 05/15/2019 14:57 EST 05/15/2019 15:24 EST Narrative [facility] - 05/15/2019 15:50 EST Moderate Intensity Coumadin INR = 2.0-3.0 Adjustments in anticoagulant therapy dose should be based on the INR and NOT on the Protime. Brody Duran MD PhD HEMATOLOGY & PF 4 ORDERABLES Performing Organization Address City/[facility]/ZIP Co de Phone Number [facility] [address] [place] [address] * (ABNORMAL) COMPLETE BLOOD COUNT (05/15/2019 14:57 EST) WBC 3.38(L) 4.00 - 10.40 K/cmm 05/15/2019 15:34 [facility] RBC 4.30(L) 4.36 - 5.78 M/cmm 05/15/2019 15:34 [facility] Hemoglobin 11.3(L) 13.8 - 17.3 gm/dL 05/15/2019 15:34 [facility] HCT 35.2(L) 39.5 - 50.2 % 05/15/2019 15:34 [facility] MCV 82 81 - 95 fl 05/15/2019 15:34 [facility] MCH 26.3(L) 27.6 - 33.0 pg 05/15/2019 15:34 [facility] MCHC 32.1(L) 32.8 - 36.4 gm/dL 05/15/2019 15:34 [facility] RDW-CV 15.3(H) <14.2 % 05/15/2019 15:34 [facility] RDW-SD 45.0 <46.0 fl 05/15/2019 15:34 [facility] PLT 137(L) 141 - 377 K/cmm 05/15/2019 15:34 [facility] MPV 8.8(L) 9.5 - 12.7 fl 05/15/2019 15:34 [facility] Blood VENOUS BLOOD / Unknown Venipuncture / Unknown 05/15/2019 14:57 EST 05/15/2019 15:24 EST Brody Duran MD PhD HEMATOLOGY & PF 4 ORDERABLES [facility] [address] [place] [address] * (ABNORMAL) COMPREHENSIVE METABOLIC PANEL (CMP) (05/15/2019 14:57 EST) Pathologist [facility] Sodium 141 136 - 145 mEq/L 05/15/2019 15:53 [facility] Potassium 4.4 3.5 - 5.0 mEq/L 05/15/2019 15:53 [facility] Chloride 108 96 - 110 mEq/L 05/15/2019 15:53 [facility] CO2 Total 25 22 - 32 mEq/L 05/15/2019 15:53 [facility] Glucose 140(H) 70 - 100 mg/dL 05/15/2019 15:53 [facility] BUN 16 10 - 26 mg/dL 05/15/2019 15:53 [facility] Creatinine 0.82 0.66 - 1.25 mg/dL 05/15/2019 15:53 [facility] eGFR 93 >60 mL/min/1.7 3m2 05/15/2019 15:53 [facility] Comment:eGFR calculated crystal mclaughlin CKD-EPI equation for non- Americans. Multiply eGFR by 1.16 for patients. Total Protein 6.6 6.3 - 8.2 g/dL 05/15/2019 15:53 [facility] Albumin 3.7 3.4 - 4.9 g/dL 05/15/2019 15:53 [facility] Alkaline Phosphatase 75 38 - 126 U/L 05/15/2019 15:53 [facility] AST 34 15 - 46 U/L 05/15/2019 15:53 [facility] ALT 27 <50 U/L 05/15/2019 15:53 [facility] Bilirubin, Total 0.9 <1.4 mg/dL 05/15/19 20 15:53 [facility] Calcium 9.4 8.5 - 10.5 mg/dL 05/15/2019 15:53 [facility] Calculated Calcium 9.6 8.5 - 10.5 mg/dL 05/15/2019 15:53 [facility] Blood VENOUS BLOOD / Unknown Venipuncture / Unknown 05/15/2019 14:57 EST 05/15/2019 15:25 [facility] - 05/15/2019 15:53 EST 1 Brody Duran MD PhD CHEMISTRY & BLO OD GAS ORDERABLES [facility] [address] [place] [address] documented in this encounter Visit Diagnoses Diagnosis Hepatic cirrhosis, unspecified hepatic cirrhosis type, unspecified whether ascites present (HCC-CMS) Encephalopathy, hepatic (HCC-CMS) Hepatic encephalopathy documented in this encounter Care Teams Heading Repairer Relationship Specialty Start Date End Date Katia Blanco [place] [address] PCP - General 03/26/19 09/20/22 documented as of this encounter
--- OUTSIDE RECORDS SUMMARY | 2023-12-21 12:06 | XMS_ITS | Encounter Summary ---
Author Organization [facility] Address [address] [place] [address] Care Team Providers Care Vp Director Of Creative Strategy Name Role Phone Katia Blanco IMANI Primary Care Provider [phone] Reason for Visit * Reason Onset Date Comments Follow-up 07/09/2021 Encounter Details Date Type Department Care Team (Late st Contact Info) Description 07/09/2021 Telephone [facility] Interventional Radiology - [facility] [address] [place] [address] Melissa Munroe, RN [address] [place] [address] Follow-up Social History Tobacco Use Types Packs/Day Years [...] Miscellaneous Notes * Telephone Encounter - Melissa Munroe RN - 07/09/2021 1421 EDT Returned call to Alonzo regarding IRC follow up. Again, I was unable to reach him. I left a message with Radiology scheduling number , as rescheduling the u/s is the first step for follow up. documented in this encounter Plan of Treatment Upcoming Encounters Date Type Department Care Team (Late st Contact Info) Description 01/23/2024 10:00 EDT Office Visit [facility] General Surgery - [address] [phone] Bon Gutierrez MD 111 [facility], [address] [place] [phone] 09/10/2024 10:00 EDT Appointment Shaina Bergeron [place] [phone] [place], [place] [phone] documented as of this encounter Visit Diagnoses Not on filedocumented in this encounter Care Teams Vp Director Of Creative Strategy Relationship Specialty Start Date End Date Katia Blanco FNP [address] [place] [address] PCP - General 03/26/19 09/20/22 documented as of this encounter
--- OUTSIDE RECORDS SUMMARY | 2023-12-21 12:06 | XMS_ITS | Encounter Summary ---
Author Organization [facility] Address [address] [place] [address] Care Team Providers Care Art Librarian Name Role Phone Katia BlancoP Primary Care Provider [phone] Encounter Details Date Type Department Care Team ([facility] st Contact Info) Description 05/16/2019 Telephone [facility] Gastroenterology - [address] [phone] Jacob Kamara [facility] [address] [place], [place] [address] Social History Tobacco Use Types Packs/Day Years [...] as of this encounter Miscellaneous Notes * Addendum Note - Jacob Kamara - 05/16/2019 1124 ESTAddended by: JACOB KAMARA on: 05/16/2019 11:24 Modules accepted: Orders * Telephone Encounter - Jacob Kamara - 05/16/2019 1004 EST Spoke to patient to confirm preferred pharmacy for rifaximin - states it is [facility] in [place]. Patient states he does not have prescription insurance. Called pharmacy, would be $650/month. Patient may be eligible for [employer] Patient Assistance Program (application available at: [email or web address]). Spoke to patient. Will mail application to him to complete and requested he mail it back as soon as possible. Will submit completed application once patient portion is received. Jacob Kamara, PharmD Pharmacist Clinician - Gastroenterology/Hepatology 05/16/2019 documented in this encounter Plan of Treatment Upcoming Encounters Date Type Department Care Team (Late st Contact Info) Description 01/23/2024 10:00 EDT Office Visit [facility] General Surgery - [address] [address] Bon Gutierrez MD [address] [place] [address], [address] [place] [address] 09/10/2024 10:00 EDT Appointment Shaina Mejia [address] [place] [phone] documented as of this encounter Visit Diagnoses Not on filedocumented in this encounter Discontinued Medications Medication Sig Discontinue Reason Start Date End Da te rifAXImin (XIFAXAN) 550 mg tabletIndications:Hepatic cirrhosis, unspecified hepatic cirrhosis type, unspecified whether ascites present (HCC-CMS),Encephalopathy, hepatic (HCC-CMS) Take 1 Tab by mouth 2 times daily. 05/16/2019 05/16/2019 documented as of this encounter Historical Medications * This list may reflect changes made after this encounter. Medication Sig Dispensed Refills Start Date End Date rifAXImin (XIFAXAN) 550 mg tablet Take 550 mg by mouth 2 times daily. Obtaining through Patient Assistance Program ([facility]), approved on 05/31/19 x1 year. Phone number for PAP: [phone] added in this encounter Care Teams Art Librarian Relationship Specialty Start Date End Date Katia Blanco FNP Cheryl [place] [address] PCP - General 03/26/19 09/20/22 documented as of this encounter
--- OUTSIDE RECORDS SUMMARY | 2023-12-21 12:06 | XMS_ITS | Encounter Summary ---
Author Organization [facility] Address [address] [place] [address] Care Team Providers Care Feed Weigher Name Role Phone Katia Blanco IMANI Primary Care Provider [phone] Reason for Visit * Reason Onset Date Comments Appointment Related 03/26/2019 Encounter Details Date Type Department Care Team (Late st Contact Info) Description 03/26/[address] [facility] Interventional Radiology - [address] [address]22[address] Guicho Rosales MD [address] [place] [address] [address] [place] [address] Appointment Related Social History Tobacco [...] * Telephone Encounter - Lizy Hull - 03/26/2019 1036 EST Left a message with PCP office requesting a return phone call and fax of most recent OV note, medication list and pt demo to our fax number. * Telephone Encounter - Lizy Hull - 03/26/2019 1011 EST Incoming call from Alonzo requesting an appointment with Dr. Rosales. Per patient- new pcp Katia Reyez suggested following up in April regarding TIPS. Patient taking lots of lactalose was admitted to [facility] recently. Will call PCP for updated records and relay to RN and provider. documented in this encounter Plan of Treatment Upcoming Encounters Date Type Department Care Team (Late st Contact Info) Description 01/23/2024 10:[address] [facility] General Surgery - [address] [phone] Bon Gutierrez MD [address] [place] [address], [address] [place] [phone] 09/10/2024 10:00 EDT Appointment Shaina Mejia [address] [place] [phone] documented as of this encounter Visit Diagnoses Not on filedocumented in this encounter Care Teams Feed Weigher Relationship Specialty Start Date End Date Katia Blanco FNP [address] [place] [address] PCP - General 03/26/19 09/20/22 documented as of this encounter
--- OUTSIDE RECORDS SUMMARY | 2023-12-21 12:06 | XMS_ITS | Encounter Summary ---
Author Organization [facility] Address [address] [place] [address] Care Team Providers Care Jumpbasting Lining Baster Name Role Phone Katia Blanco Primary Care Provider [phone] Encounter Details Date Type Department Care Team (Late st Contact Info) Description 06/24/[address] [facility] Gastroenterology - [address] [address] Brody Duran MD PhD [address] [place] [address], [address] [place] [address] Social History Tobacco Use Types Packs/Day Years [...] encounter Miscellaneous Notes * Telephone Encounter - Shonda Camacho - 06/24/[address] [facility] Gastroenterology/Hepatology Clinic Fax received stating patient is no longer eligible for [facility] to receive rifaximin. Per Dr. Duran's office visit note 05/15/19, patient to follow up with PCP - called office, LM on nurse triage line. Also faxed letter to PCP's office. Shonda Camacho, PharmD Pharmacist Clinician - Gastroenterology/Hepatology 06/24/2020 documented in this encounter Plan of Treatment Upcoming Encounters Date Type Department Care Team (Late st Contact Info) Description 01/23/2024 10:00 EDT Office Visit [facility] General Surgery - [address] [phone] Bon Gutierrez MD 111 [facility], [address] [place] [address] 09/10/2024 10:00 EDT Appointment Shaina Bergeron Ultrasound [address] [place], [place] [phone] documented as of this encounter Visit Diagnoses Not on filedocumented in this encounter Care Teams Jumpbasting Lining Baster Relationship Specialty Start Date End Date Katia Blanco FNP Cheryl [facility] [address] PCP - General 03/26/19 09/20/22 documented as of this encounter
--- OUTSIDE RECORDS SUMMARY | 2023-12-21 12:06 | XMS_ITS | Encounter Summary ---
Author Organization [facility] Address [address] [place] [address] Care Team Providers Care Applied Marine Physics Professor Name Role Phone Katia Blanco HL7 DEVELOPER Primary Care Provider [phone] Reason for Visit * Reason Onset Date Comments Appointment Related 12/28/2019 Encounter Details Date Type Department Care Team (Late st Contact Info) Description 12/28/[address] [facility] Interventional Radiology - [address] [address] Guicho Rosales [address] [place] [address] Appointment Related Social History Tobacco Use Types [...] * Telephone Encounter - Lizy Hull - 12/28/2019 0931 EDT Spoke with Alonzo regarding plan for IR follow up. - us scheduled for 01/08 @ 830AM - plan for telemed phone call on Sunday 01/14 @ [address] Bobby Tucker Ciara verbalized understanding and agrees with Plan of Care. No cognitive barriers were identified during this conversation. He has our contact number to call with questions. Lizy Hull documented in this encounter Plan of Treatment Upcoming Encounters Date Type Department Care Team (Jennifer st Contact Info) Description 01/23/2024 10:[address] [facility] General Surgery - [address] 967[address] Bon Gutierrez MD [address] [place] [address], [address] [place] [phone] 09/10/2024 10:00 EDT Appointment Shaina Bergeron [address] [phone] documented as of this encounter Visit Diagnoses Not on filedocumented in this encounter Care Teams Applied Marine Physics Professor Relationship Specialty Start Date End Date Katia Blanco [place] [address] PCP - General 03/26/19 09/20/22 documented as of this encounter
--- OUTSIDE RECORDS SUMMARY | 2023-12-21 12:06 | XMS_ITS | Encounter Summary ---
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) Procedures US HEPATOPORTAL VEIN DUPLEX Guicho Rosales MD [address] [place] [phone] Referral ID Status Reason Start Date Expiration Date Visits Re quested Visits Authorized [id number] Closed 03/25/2019 1 1 Reason for Visit * Vascular Lab (Routine) - Closed Specialty Diagnoses / Procedures Referred By Tad alcaraz Referred To Contact Diagnoses 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 pantoprazole (PROTONIX) 40 mg tabletIndications:upper GI bleed Take 1 Tab by mouth daily. 30 Tab 09/12/2018 valsartan (DIOVAN) 80 mg tablet Take 160 mg by mouth daily. documented as of this encounter Discharge Disposition Disposition Code Departure Means Destination Home or Self Care documented in this encounter Plan of Treatment Upcoming Encounters Date Type Department Care Team (Late st Contact Info) Description 01/23/2024 10:00 EDT Office Visit [facility] General Surgery - [address] [phone] Bon Gutierrez MD [address] [place] [address], [address] [place] [address] 09/10/2024 10:00 EDT Appointment Shaina Bergeron Ultrasound [address] [place] [address] documented as of this encounter Procedures Procedure Name Priority Date/Time Associated Diagnosis Comments US HEPATOPORTAL VEIN DUPLEX Routine 04/24/2019 9:12 EST 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) documented in this encounter Results * US HEPATOPORTAL VEIN DUPLEX (04/24/2019 9:12 EST) Right hepatic vein rhonda 151 cm/s MCK[place]ON Right portal vein rhonda 12 cm/s [place]ON Left portal vein rhonda 18 cm/s [place] Main portal vein rhonda 45 cm/s [place] TIPS inflow segment rhonda 27 cm/s [place] TIPS mid segment rhonda 51 cm/s [place] TIPS outflow segment rhonda 96 cm/s [place] Main portal tidal vein karly 1.30 cm [place] Intrahepatic vein rhonda 2 cm/s [place] Ped/Liver transplant liver measurement 12.30 cm [place] Anatomical Region Laterality Modality Vascular Ultrasound Narrative 04/24/2019 10:46 EST ?Cholelithiasis ?All segments of the TIPS are patent. Incidental Findings Multiple gallbladder stones Hepatoportal Venous The liver echotexture was heterogeneous. All segments of the TIPS shunt are patent. 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
--- OUTSIDE RECORDS SUMMARY | 2023-12-21 12:06 | XMS_ITS | Encounter Summary ---
Author Organization [facility] Address [address] [place] [address] Care Team Providers Care Motel Clerk Name Role Phone Katia Blanco Primary Care Provider [phone] Encounter Details Date Type Department Care Team (Late st Contact Info) Description 12/22/2020 Orders Only [facility] Interventional Radiology - [address] [address] Guicho Rosales MD [address] [place] [address], Level 1 [place] [phone] Cirrhosis ([facility]) (Primary Dx) Social History Tobacco Use Types [...] Info) Description 01/23/2024 10:00 EDT Office Visit [facility] General Surgery - [facility] [address] [place], [place] [address] Bon Gutierrez MD 111 [facility], [address] [place] [phone] 09/10/2024 10:00 EDT Appointment Shaina Mejia [address] [place] [address] documented as of this encounter Visit Diagnoses Diagnosis Cirrhosis (HCC-CMS)- Primary Cirrhosis of liver without mention of alcohol documented in this encounter Care Teams Motel Clerk Relationship Specialty Start Date End Date Katia Blanco [place] [address] PCP - General 03/26/19 09/20/22 documented as of this encounter
--- OUTSIDE RECORDS SUMMARY | 2023-12-21 12:06 | XMS_ITS | Encounter Summary ---
Author Organization [facility] Address [address] [place] [address] Care Team Providers Care Oracle Fusion Middleware Architect Name Role Phone Katia Blanco IMANI Primary Care Provider [phone] Reason for Visit * Reason Onset Date Comments Appointment Related 07/10/2021 Encounter Details Date Type Department Care Team (Late st Contact Info) Description 07/10/2021 Telephone [facility] Interventional Radiology - [address] 577991 Guicho Rosales MD [address] [place] [address] 1 [place] [address] Appointment Related Social History Tobacco [...] * Telephone Encounter - Lizy Hull - 07/10/2021 1044 EDT Spoke with Alonzo this morning regarding follow up with Dr. Rosales and need to r/s We discussed planning and expectations of patient to have clinical follow up with Dr. Rosales Per Alonzo- same day works best for him. We discussed plan for 09/08 OV and US and I have reached out to radiology to schedule for this day specifically ([facility] next clinic) I will send letter to patient with updated ultrasound and office visit times with Dr. Rosales for 09/08/21 documented in this encounter Plan of Treatment Upcoming Encounters Date Type Department Care Team (Late st Contact Info) Description 01/23/2024 10:00 EDT Office Visit [facility] General Surgery - [address] [id number] Bon Gutierrez MD 111 [facility], [address] [place] [phone] 09/10/2024 10:00 EDT Appointment Shaina Bergeron Ultrasound [address] [place] [address] documented as of this encounter Visit Diagnoses Not on filedocumented in this encounter Care Teams Oracle Fusion Middleware Architect Relationship Specialty Start Date End Date Katia Blanco [place] [address] PCP - General 03/26/19 09/20/22 documented as of this encounter
--- OUTSIDE RECORDS SUMMARY | 2023-12-21 12:06 | XMS_ITS | Encounter Summary ---
Author Organization [facility] Address [address] [place] [address] Care Team Providers Care Nut Sifter Name Role Phone Katia Blanco Primary Care Provider [phone] Reason for Visit * Reason Onset Date Comments Medication Management 06/05/2019 Encounter Details Date Type Department Care Team (Late st Contact Info) Description 06/05/2019 Telephone [facility] Gastroenterology - [address] [address] Brody Duran MD PhD 111 [facility], [address] [place] [address] Medication Management Social History Tobacco Use Types Packs/Day [...] encounter Miscellaneous Notes * Telephone Encounter - Maria Teresa Arguelles - 06/05/2019 0933 EST error * Telephone Encounter - Shonda Camacho - 06/05/2019 0932 EST Incoming call from patient re: high cost of rifaximin. Patient states he was called yesterday by [facility] pharmacy stating his prescription is ready but will cost ~$600. Called pharmacy to deactivate prescription they have, as patient will be unable to afford this. Previously received and faxed patient's completed PAP application on 05/28/19. Called PAP at [phone] to follow up on status of application. Spoke to Mariela, who states application was approved on 05/31 and medication was delivered to patient on 06/04 via [employer]. Called Alonzo back, he looked and the Xifaxan was delivered this morning. Reviewed dosing (1 tablet BID), side effects and follow up with patient. Per Dr. Duran's note, patient to follow up with PCP and he would see patient in office again if episodic confusion does not improve after 1 month of rifaximin. Confirmed patient's other medications, no DDI. Informed patient Xifaxan approved through PAP for 3 month supply x1 year. If he has issues with obtaining medication in the future, instructed him to call GI clinic. Shonda Camacho, PharmD Pharmacist Clinician - Gastroenterology/Hepatology 06/05/2019 documented in this encounter Plan of Treatment Upcoming Encounters Date Type Department Care Team (Late st Contact Info) Description 01/23/2024 10:00 EDT Office Visit [facility] General Surgery - [address] [phone] Bon Gutierrez MD 111 [facility], [address] [place] [phone] 09/10/2024 10:00 EDT Appointment Shaina Bergeron [address] [address] [place], [place] [address] documented as of this encounter Visit Diagnoses Not on filedocumented in this encounter Historical Medications * This list may reflect changes made after this encounter. Medication Sig Dispensed Refills Start Date End Date Multivitamins with Minerals tablet tablet Take 1 Tab by mouth daily. added in this encounter Care Teams Nut Sifter Relationship Specialty Start Date End Date Katia Blanco [place] [address] PCP - General 03/26/19 09/20/22 documented as of this encounter
--- OUTSIDE RECORDS SUMMARY | 2023-12-21 12:06 | XMS_ITS | Encounter Summary ---
Author Organization [facility] Address [address] [place] [address] Care Team Providers Care Journeyman Pressman Name Role Phone Katia Blanco FACILITIES ADMINISTRATOR Primary Care Provider [phone] Encounter Details Date Type Department Care Team (Late st Contact Info) Description 12/10/2019 Orders Only [facility] Interventional Radiology - [address] [address] Guicho Rosales MD [address] [place] [address], Level [address] [place] [address] Cirrhosis ([facility]) (Primary Dx) Social History Tobacco Use Types [...] Info) Description 01/23/2024 10:00 EDT Office Visit [facility] General Surgery - [address] 037231 Bon Gutierrez MD 111 [facility], [address] [place] [phone] 09/10/2024 10:00 EDT Appointment Shaina Bergeron [phone] [place] [address] documented as of this encounter Visit Diagnoses Diagnosis Cirrhosis (HCC-CMS)- Primary Cirrhosis of liver without mention of alcohol documented in this encounter Care Teams Journeyman Pressman Relationship Specialty Start Date End Date Katia Blanco [place] [address] PCP - General 03/26/19 09/20/22 documented as of this encounter
--- OUTSIDE RECORDS SUMMARY | 2023-12-21 12:06 | XMS_ITS | Encounter Summary ---
Author Organization [facility] Address [address] [place] [address] Care Team Providers Care Pourer Metal Name Role Phone Laurie Wiggins MD Primary Care Provider [phone] Encounter Details Date Type Department Care Team (Late st Contact Info) Description 02/22/2019 Orders Only [facility] Interventional Radiology - [address] [address] Guicho Rosales MD [address] [place] [address], [address] [place] [phone] Social History Tobacco Use Types Packs/Day Years [...] Info) Description 01/23/2024 10:00 EDT Office Visit [facility] General Surgery - [address] [id number] Bon Gutierrez MD 111 [facility], [address] [place] [address] 09/10/2024 10:00 EDT Appointment Shaina Bergeron [address] [phone] documented as of this encounter Visit Diagnoses Not on filedocumented in this encounter Care Teams Pourer Metal Relationship Specialty Start Date End Date Laurie Wiggins MD PCP - General 05/08/18 03/25/19 documented as of this encounter
--- OUTSIDE RECORDS SUMMARY | 2023-12-21 12:06 | XMS_ITS | Encounter Summary ---
Author Organization [facility] Address [address] [place] [address] Care Team Providers Care Php Lamp Developer Name Role Phone Katia Blanco IMANI Primary Care Provider [phone] Reason for Visit * Reason Onset Date Comments Appointment Related 03/03/2021 Encounter Details Date Type Department Care Team (Late st Contact Info) Description 03/03/2021 Telephone [facility] Interventional Radiology - [address] 9[address]861 Guicho Rosales MD [address] [place] [address] 1 [place] [address] Appointment Related Social History Tobacco [...] * Telephone Encounter - Lizy Hull - 03/03/2021 1411 EST Alonzo returned my phone call and confirmed plan for US and OV with Dr. Rosales 03/25 I called him back to confirm I received his voicemail and stated I would not be here that week- therefore if patient needs anything else to give us a call at [phone] option 1 documented in this encounter Plan of Treatment Upcoming Encounters Date Type Department Care Team (Late st Contact Info) Description 01/23/2024 10:00 EDT Office Visit [facility] General Surgery - [facility] [address] [place], [place] [address] Bon Gutierrez MD 111 [facility], [address] [place] [phone] 09/10/2024 10:00 EDT Appointment Shaina Bergeron Ultrasound 0 [place] [address] documented as of this encounter Visit Diagnoses Not on filedocumented in this encounter Care Teams Php Lamp Developer Relationship Specialty Start Date End Date [place] [address] PCP - General 03/26/19 09/20/22 documented as of this encounter
--- OUTSIDE RECORDS SUMMARY | 2023-12-21 12:06 | XMS_ITS | Encounter Summary ---
Author Organization [facility] Address [address] [place] [address] Care Team Providers Care Nurses' Association Counselor Name Role Phone Katia Blanco Primary Care Provider [phone] Encounter Details Date Type Department Care Team (Late st Contact Info) Description 05/16/2019 Orders Only [facility] Gastroenterology - [address] [address] Brody Duran MD PhD 111 [facility], [address] [place] [address] Hepatic cirrhosis, unspecified hepatic cirrhosis type, unspecified whether ascites present (HCC-CMS) (Primary Dx); Encephalopathy, hepatic (HCC-CMS) Social History Tobacco Use [...] Dispensed Refills Start Date End Da te rifAXImin (XIFAXAN) 550 mg tabletIndications:Hepatic cirrhosis, unspecified hepatic cirrhosis type, unspecified whether ascites present (HCC-CMS),Encephalopathy, hepatic (HCC-CMS) Take 1 Tab by mouth 2 times daily. 30 Tab 6 05/16/2019 05/16/2019 documented in this encounter Plan of Treatment Upcoming Encounters Date Type Department Care Team (Late st Contact Info) Description 01/23/2024 10:00 EDT Office Visit [facility] General Surgery - [address] [phone] Bon Gutierrez MD 111 [facility], [address] [place] [phone] 09/10/2024 10:00 EDT Appointment Shaina Mejia [address] [place] [phone] documented as of this encounter Visit Diagnoses Diagnosis Hepatic cirrhosis, unspecified hepatic cirrhosis type, unspecified whether ascites present (HCC-CMS)- Primary Encephalopathy, hepatic (HCC-CMS) Hepatic encephalopathy documented in this encounter Care Teams Nurses' Association Counselor Relationship Specialty Start Date End Date Katia Blanco FNP Cheryl [place] [facility] [place] [address] PCP - General 03/26/19 09/20/22 documented as of this encounter
--- OUTSIDE RECORDS SUMMARY | 2023-12-21 12:06 | XMS_ITS | Encounter Summary ---
Author Organization [facility] Address [address] [place] [address] Care Team Providers Care Manager Study Name Role Phone Katia Blanco EYELET ROW MARKER Primary Care Provider [phone] George Lou RPA Primary Care Provider [phone] Encounter Details Date Type Department Care Team (Late st Contact Info) Description 01/16/[address] [facility] Pathology & Laboratory Medicine - [facility] [address] [place] [address] Sari Yusuf, DO [address] [place] [address] Duodenal ulcer, unspecified as acute or chronic, without hemorrhage or perforation Social History Tobacco Use Types Packs/Day Years [...] No 08/09/2018 Cognitive Status Response Date of Assess ent Because of a physical, menta l, or emotional condition, do you have serious difficulty concentrating, remembering, or making decisions? (5 years old or older) No 08/09/2018 documented as of this encounter Plan of Treatment Upcoming Encounters Date Type Department Care Team (Late st Contact Info) Description 01/23/2024 10:[address] [facility] General Surgery - [address] [address] Bon Gutierrez MD [address] [place] [address], [address] [place] [phone] 09/10/2024 10:00 EDT Appointment Shaina Mejia [address] [place] [address] documented as of this encounter Procedures Procedure Name Priority Date/Time Associated Diagnosis Comments SURGICAL PATHOLOGY Today 01/16/2020 9: 45 EDT Duodenal ulcer, unspecified as acute or chronic, without hemorrhage or perforation documented in this encounter Results * SURGICAL PATHOLOGY (01/16/2020 9:45 EDT) Final Diagnosis A. DUODENUM, BULB, BIOPSY: - Duodenal mucosa with mild peptic duodenitis. B. STOMACH, ANTRUM, BIOPSY: - Gastric antral mucosa with reactive (chemical) gastropathy. C. STOMACH, GREATER CURVE, BIOPSY: - Gastric body mucosa with no specific pathologic features. D. GASTROINTESTINAL JUNCTION, BIOPSY: - Squamocolumnar junctional mucosa with active erosive reflux esophagitis. - Negative for intestinal metaplasia; Negative for dysplasia. E. ESOPHAGUS, DISTAL, BIOPSY: - Squamous mucosa with reflux esophagitis. 01/17/2020 17:33 [facility] Attestation By the signature below, the attending physician certifies that they have 1) personally conducted a gross and/or microscopic examination of the described specimen(s), and/or personally interpreted the results of laboratory testing of the described specimen(s), and 2) personally rendered or confirmed the above diagnosis. 01/17/2020 17:33 [facility] at 1733 Clinical History Duodenal ulcers 01/17/2020 17:33 [facility] Gross Description A. Received in formalin labelled with proper patient identification (initials W, J) and duodenal bulb are 3 ames-pink tissues ranging in size from 0.1 x 0.1 x 0.1 cm up to 0.3 x 0.2 x 0.1 cm. Submitted intact in A1. B. Received in formalin labelled with proper patient identification (initials W, J) and antrum is a ames-pink tissue measuring 0.6 x 0.3 x 0.1 cm. Submitted intact in B1. C. Received in formalin labelled with proper patient identification (initials W, J) and greater curve is a 0.6 x 0.2 x 0.2 cm ames-pink tissue fragment. Submitted intact in C1. D. Received in formalin labelled with proper patient identification (initials W, J) and GE junction is a ames-white tissue fragment measuring 0.5 x 0.2 x 0.1 cm. Submitted intact in D1. E. Received in formalin labelled with proper patient identification (initials W, J) and distal esophagus is a ames-white tissue fragment measuring 0.4 x 0.2 x 0.1 cm. Submitted intact in E1. QUYNH DARBY(ASCP) 01/16/2020 18:02 01/17/2020 17:33 [facility] Performing Lab [facility] 17:33 [facility] Scanned Images 01/17/2020 17:33 [facility] Tissue ENTIRE ESOPHAGUS / Unknown 01/16/2020 9:45 EDT 01/16/2020 15:56 EDT Tissue specimen (specimen) STOMACH STRUCTURE / Unknown 01/16/2020 9:45 EDT 01/16/2020 15:56 EDT Tissue specimen (specimen) STOMACH STRUCTURE / Unknown 01/16/2020 9:45 EDT 01/16/2020 15:56 EDT Tissue specimen (specimen) CARDIOESOPHAGEAL JUNCTION STRUCTURE / Unknown 01/16/2020 9:45 EDT 01/16/2020 15:56 EDT Tissue specimen (specimen) ESOPHAGEAL STRUCTURE / Unknown 01/16/2020 9:45 EDT 01/16/2020 15:56 EDT Sari Yusuf DO PATHOLOGY ORDERABLES [facility] [address] [place] [address] documented in this encounter Visit Diagnoses Diagnosis Duodenal ulcer, unspecified as acute or chronic, without hemorrhage or perforation documented in this encounter Care Teams Manager Study Relationship Specialty Start Date End Date Katia Blanco FNP [address] [place], [place] [address] PCP - General 03/26/19 09/20/22 George Lou RPA [address] [address] PCP - General Family Medicine - Primary Care 09/21/22 documented as of this encounter
--- OUTSIDE RECORDS SUMMARY | 2023-12-21 12:06 | XMS_ITS | Encounter Summary ---
Author Organization [facility] Address [address] [place] [address] Care Team Providers Care Second Time Worker Name Role Phone George Lou NORMA Primary Care Provider [phone] Encounter Details Date Type Department Care Team (Late st Contact Info) Description 08/25/2023 Lab Requisition [facility] Pathology & Laboratory Medicine - [address] [address] Sari Yusuf, DO [address] [place], [place] [phone] Right upper quadrant pain Social History Tobacco Use Types Packs/Day Years [...] Info) Description 01/23/2024 10:00 EDT Office Visit [facility] General Surgery - [facility] [address] [place], [place] [address] Bon Gutierrez MD 111 [facility], [address] [place] [phone] 09/10/2024 10:00 EDT Appointment Shaina Mejia [address] [place], [place] [address] documented as of this encounter Procedures Procedure Name Priority Date/Time Associated Diagnosis Comments SURGICAL PATHOLOGY Today 08/24/2023 12 :31 EDT Right upper quadrant pain documented in this encounter Results * SURGICAL PATHOLOGY (08/24/2023 12:31 EDT) Note to Patient The following pathology results have been interpreted by your pathologist and may be available to you before your health provider has had the opportunity to review them. Please allow time for your provider to receive these results and explore management options, if applicable. 08/26/2023 14:21 EDT [facility] Final Diagnosis A. DUODENUM, BULB, BIOPSY: - Acute erosive peptic duodenitis. B. STOMACH, ANTRUM, BIOPSY: - Gastric mucosa with reactive (chemical) gastropathy. - Negative for Helicobacter pylori organisms on H+E stained sections. C. STOMACH, GREATER CURVE, BIOPSY: - Gastric mucosa with mild histologic features of regeneration/repai r. - Negative for Helicobacter pylori organisms on H+E stained sections. D. GASTROESOPHAGEAL JUNCTION, AT 35 CM, BIOPSY: - Squamocolumnar junctional mucosa with reactive changes. - Negative of intestinal metaplasia; Negative for dysplasia. E. ESOPHAGUS, DISTAL, BIOPSY: - Squamous mucosa with no specific pathologic features. 08/26/2023 14:21 [facility] Attestation By the signature below, the attending physician certifies that they have 1) personally conducted a gross and/or microscopic examination of the described specimen(s), and/or personally interpreted the results of laboratory testing of the described specimen(s), and 2) personally rendered or confirmed the above diagnosis. 08/26/2023 14:21 [facility] at 1421 Clinical History Abdominal pain 08/26/2023 14:21 [facility] Gross Description A. Received in formalin labelled with proper patient identification (initials W, J) and biopsies duodenal bulb are 4 ames irregular soft tissue fragments ranging from 0.2 x 0.2 x 0.2 cm to 0.6 x 0.2 x 0.2 cm. Entirely submitted in A1. B. Received in formalin labelled with proper patient identification (initials W J) and biopsies antrum is a 0.3 x 0.3 x 0.3 cm ames irregular soft tissue fragment. Entirely submitted in B1. C. Received in formalin labelled with proper patient identification (initials W, J) and biopsies greater curve is a 0.3 x 0.3 x 0.3 cm ames irregular soft tissue fragment. Entirely submitted in C1. D. Received in formalin labelled with proper patient identification (initials W, J) and biopsies GE junction at 35 are 3 ames irregular soft tissue fragments each averaging 0.3 x 0.3 x 0.3 cm. Entirely submitted in D1. E. Received in formalin labelled with proper patient identification (initials W, J) and biopsies distal esophagus is a 0.4 x 0.2 x 0.2 cm ames irregular soft tissue fragment. Entirely submitted in E1. QUYNH DELEON(ASCP) 08/25/2023 9:57 08/26/2023 14:21 [facility] Performing Lab [facility] 14:21 [facility] Scanned Images 08/26/2023 14:21 [facility] Tissue ESOPHAGEAL STRUCTURE / Unknown 08/24/2023 12:31 EDT 08/25/2023 8:08 EDT Tissue specimen (specimen) PYLORIC ANTRUM STRUCTURE / Unknown 08/24/2023 12:31 EDT 08/25/2023 8:11 EDT Tissue specimen (specimen) SPECIMEN FROM STOMACH OBTAINED BY TOTAL GASTRECTOMY / Unknown 08/24/2023 12:31 EDT 08/25/2023 8:11 EDT Tissue specimen (specimen) CARDIOESOPHAGEAL JUNCTION STRUCTURE / Unknown 08/24/2023 12:31 EDT 08/25/2023 8:11 EDT Tissue specimen (specimen) ESOPHAGEAL STRUCTURE / Unknown 08/24/2023 12:31 EDT 08/25/2023 8:11 EDT Sari Yusuf DO PATHOLOGY ORDERABLES [facility] [address] [place] [address] documented in this encounter Visit Diagnoses Diagnosis Right upper quadrant pain Abdominal pain, right upper quadrant documented in this encounter Care Teams Second Time Worker Relationship Specialty Start Date End Date George Lou RPA [address] [place] [address] PCP - General Family Medicine - Primary Care 09/21/22 documented as of this encounter
--- OUTSIDE RECORDS SUMMARY | 2023-12-21 12:06 | XMS_ITS | Encounter Summary ---
Author Organization [facility] Address [address] [place] [address] Care Team Providers Care Licensed Clinician Name Role Phone Katia Blanco IMANI Primary Care Provider [phone] Reason for Visit * Vascular Lab (Routine/Next Available) - Authorization Not Required Specialty Diagnoses / Procedures Referred By Contac t Referred To Contact Diagnoses Cirrhosis (HCC-CMS) Procedures US LIVER/ABDOMEN VISCERAL DOPPLER US HEPATOPORTAL VEIN DUPLEX Guicho Rosales MD [address] [place] [address] 1 [place] [address] Referral ID Status Reason Start Date Expiration Date Visits Requested Visits Authorized [id number] Authorization Not Required 12/22/2020 1 1 Encounter Details Date Type Department Care Team (Latest Contact Info) Description 09/08/2021 7:08 EDT - 09/08/2021 23:59 EDT Hospital Encounter Medical Center Radiology [facility] [place] [address] [place] [address] Cirrhosis (HCC-CMS) (HCC) (HCC-CMS) Discharge Disposition: Home or Self Care Social [...] times daily. Obtaining through Patient Assistance Program ([facility]), approved on 05/31/19 x1 year. Phone number for PAP: [phone] valsartan (DIOVAN) 80 mg tablet Take 160 [...] Description 01/23/2024 10:00 EDT Office Visit [facility] General Surgery - [address] [id number] Bon Gutierrez MD [address] [place] [address], Level [address] [place] [phone] 09/10/2024 10:00 EDT Appointment Shaina Bergeron Ultrasound [address] [place] [address] documented as of this encounter Procedures Procedure Name Priority Date/Time Associated Diagnosis Comments US LIVER/ABDOMEN VISCERAL DUPLEX Routine 09/08/2021 8:14 EDT Cirrhosis (HCC-CMS) (HCC) (HCC-CMS) documented in this encounter Results * US ABDOMEN LIMITED WITH LIMITED DUPLEX (09/08/2021 8:14 EDT) Anatomical Region Laterality Modality Abdomen Ultrasound 09/08/2021 10:3 6 EDT Impressions 09/08/2021 10:36 EDT 1. ??Patent TIPS with no significant interval change in velocities when compared to the previous exam 2. ??Cirrhosis Narrative 09/08/2021 10:36 EDT US ABDOMEN LIMITED WITH LIMITED DOPPLER ??09/08/2021 8:30 AM SIGNS AND SYMPTOMS/COMMENTS: TIPS COMPARISONS: August 27, 2018 TECHNIQUE: Grayscale, color Doppler, spectral Doppler, and cine sweep ultrasound images of the liver were obtained. FINDINGS: LIVER: The liver measures 14 cm in length, which is normal. There is diffuse coarsening of the echogenicity of the liver. The liver demonstrates a mild nodular contour.. DOPPLER EVALUATION: Main Portal Vein: 23 cm/s, Normal/towards TIPS, previously 22 cm/s Shunt (proximal): 67 cm/s, Normal/towards IVC, previously 90 cm/s Shunt (mid): 130 cm/s, Normal/towards IVC, previously 119 cm/s (still image 2560 of the examination from September 06, 2018) Shunt (distal): 86 cm/s, Normal/towards IVC, previously 93 cm/s Right Hepatic Vein: Normal/away from TIPS Right Portal Vein: Normal/towards TIPS Left Portal Vein: Not visualized FREE FLUID: None VESSEL DIAMETERS: Main portal vein measures OTHER: The spleen is enlarged measuring 14 cm in craniocaudal dimension Procedure Note Umu Giron MD - 09/08/2021 US ABDOMEN LIMITED WITH LIMITED DOPPLER 09/08/2021 8:30 AM SIGNS AND SYMPTOMS/COMMENTS: TIPS COMPARISONS: August 27, 2018 TECHNIQUE: Grayscale, color Doppler, spectral Doppler, and cine sweepultrasound images of the liver were obtained. FINDINGS: LIVER: The liver measures 14 cm in length, which is normal. There isdiffuse coarsening of the echogenicity of the liver. The liverdemonstrates a mild nodular contour.. DOPPLER EVALUATION: Main Portal Vein: 23 cm/s, Normal/towards TIPS, previously 22 cm/s Shunt (proximal): 67 cm/s, Normal/towards IVC, previously 90 cm/s Shunt (mid): 130 cm/s, Normal/towards IVC, previously 119 cm/s (stillimage 2560 of the examination from September 06, 2018) Shunt (distal): 86 cm/s, Normal/towards IVC, previously 93 cm/s Right Hepatic Vein: Normal/away from TIPS Right Portal Vein: Normal/towards TIPS Left Portal Vein: Not visualized FREE FLUID: None VESSEL DIAMETERS: Main portal vein measures OTHER: The spleen is enlarged measuring 14 cm in craniocaudal dimension IMPRESSION 1. Patent TIPS with no significant interval change in velocities whencompared to the previous exam 2. Cirrhosis Guicho Rosales MD IMG US ORDER CLAUDIO documented in this encounter Visit Diagnoses Diagnosis Cirrhosis (HCC-CMS) Cirrhosis of liver without mention of alcohol documented in this encounter Care Teams Licensed Clinician Relationship Specialty Start Date End Date Katia Blanco FNP [place] [address] PCP - General 03/26/19 09/20/22 documented as of this encounter
--- OUTSIDE RECORDS SUMMARY | 2023-12-21 12:06 | XMS_ITS | Encounter Summary ---
Author Organization [facility] Address [address] [place] [address] Care Team Providers Care Oxyacetylene Torch Operator Name Role Phone George Lou [facility] Primary Care Provider [phone] Reason for Referral * Radiology Services (Routine/Next Available) - Authorization Not Required Specialty Diagnoses / Procedures Referred By Contac t Referred To Contact Diagnoses Alcoholic cirrhosis of liver without ascites (HCC-CMS) Procedures US LIVER/ABDOMEN VISCERAL DOPPLER Guicho Rosales MD [address] [place] [phone] [facility] Referral ID Status Reason Start Date Expiration Date Visits Requested Visits Authorized [id number] Authorization Not Required 07/20/2022 1 1 Reason for Visit * Radiology Services (Routine/Next Available) - Authorization Not Required Specialty Diagnoses / Procedures Referred By Contac t Referred To Contact Diagnoses Alcoholic cirrhosis of liver without ascites (HCC-CMS) Procedures US LIVER/ABDOMEN VISCERAL DOPPLER Guicho Rosales MD [address] [place] [phone] [facility] Referral ID Status Reason Start Date Expiration Date Visits Requested Visits Authorized [id number] Authorization Not Required 07/20/2022 1 1 Encounter Details Date Type Department Care Team (Latest Contact Info) Description 09/21/2022 7:28 EDT - 09/21/2022 7:29 EDT Hospital Encounter Medical Center Radiology [facility] [place] [address] [place] [address] Alcoholic cirrhosis of liver without ascites (HCC-CMS) Discharge Disposition: Home or Self Care [...] times daily. Obtaining through Patient Assistance Program ([employer]), approved on 05/31/19 x1 year. Phone number for PAP: [phone] valsartan (DIOVAN) 80 mg tablet Take 160 [...] Info) Description 01/23/2024 10:00 EDT Office Visit [facility] General Surgery - [facility] [address] [place], [place] [phone] Bon Gutierrez MD 111 [facility], Level 5 [place] [phone] 09/10/2024 10:00 EDT Appointment Shaina Bergeron Ultrasound [address] [place], [place] [phone] documented as of this encounter Procedures Procedure Name Priority Date/Time Associated Diagnosis Comments US LIVER/ABDOMEN VISCERAL DUPLEX Routine 09/21/2022 9:39 EDT Alcoholic cirrhosis of liver without ascites (HCC-CMS) documented in this encounter Results * [...] shunt malfunction. AJR Am J Roentgenol. 1996.May;168(2):467-72. Guicho Rosales MD [facility] US ORDER CLAUDIO documented in this encounter Visit Diagnoses Diagnosis Alcoholic cirrhosis of liver without ascites (HCC-CMS) Alcoholic cirrhosis of liver documented in this encounter Care Teams Oxyacetylene Torch Operator Relationship Specialty Start Date End Date George Lou RPA [address] [address] PCP - General Family Medicine - Primary Care 09/21/22 documented as of this encounter
--- OUTSIDE RECORDS SUMMARY | 2023-12-21 12:06 | XMS_ITS | Encounter Summary ---
Author Organization [facility] Address [address] [place] [address] Care Team Providers Care Tube Teller Name Role Phone Katia Blanco IMANI Primary Care Provider [phone] Reason for Visit * Reason Comments Follow-up Encounter Details Date Type Department Care Team (Late st Contact Info) Description 09/08/2021 10:00 EDT Office Visit [facility] Interventional Radiology - [address] [phone] Guicho Rosales MD [address] [place] [address] Level 1 [place] [address] Alcoholic cirrhosis of liver without ascites (HCC-CMS) (HCC) (Primary Dx) Social History Tobacco Use Types [...] as of this encounter Progress Notes * Guicho Rosales MD - 09/08/2021 1000 EDT Subjective: Patient ID: Alonzo Urbina is an 66 y.o. male. No chief complaint on file. ELIANE Rosado is here 8 years post TIPS. He has done very well. He occasionally (every several months) has bouts of confusion, which he attributes to aging. He is not taking a laxative. 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 He has been abstinent of alcohol for over 4 years. He wants to see Dr. Duran, so we will arrange a referral. Patient Active Problem List Diagnosis ??? History of hepatitis C ??? Cirrhosis of liver (HCC-CMS) (HCC) ??? 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 Hepatic cirrhosis due to chronic hepatitis C infection (HCC-CMS) (HCC) ??? Hematemesis ??? Rectal bleeding ??? Depression ??? Substance abuse (HCC-CMS) (HCC) ??? Suicidal ideation Past Medical History: Diagnosis Date ??? Anemia ??? Chronic back pain ??? Chronic kidney disease ??? Cirrhosis of liver (HCC-CMS) ??? Colon polyp ??? Depression ??? Esophageal varices (HCC-CMS) ??? GIB (gastrointestinal bleeding) ??? Hepatitis C ??? Leg numbness ??? Mental disorder ??? Pancreatitis Past Surgical History: Procedure Laterality Date ??? BACK SURGERY 1974, 1981 ??? ESOPHAGEAL VARICE LIGATION 2008 or 2009 ??? HERNIA REPAIR hiatal hernia ??? SHOULDER SURGERY 20 years ago ??? TIPS PROCEDURE 01-28-2014 Family History Problem Relation Age of Onset ??? Cancer Mother ??? Breast Cancer Mother ??? Alcohol Abuse Father ??? Cancer Father ??? Diabetes Father ??? Cancer Sister ??? Crohn's Disease Sister ??? Diabetes Sister ??? Cancer Brother ??? Anesthesia Problem Brother ??? Cancer Sister ??? Anesthesia Problem Sister Social Social History Tobacco Use ??? Smoking status: Never Smoker ??? Smokeless tobacco: Never Used Substance Use Topics ??? Alcohol use: No ??? Drug use: No No outpatient medications have been marked as taking for the 09/08/21 encounter (Appointment) with Guicho Rosales MD. Allergies Allergen Reactions ??? Ambien [Zolpidem] Sleep-driving ??? Lisinopril Cough ROS - See HPI Objective: There were no vitals taken for this visit. Physical Exam deferred Duplex TIPS ultrasound 09/08/21: Patent TIPS. No stenosis. No liver tumor identified. Assessment: Stable, 8 years post TIPS. Plan: There are no diagnoses linked to this encounter. Referral to Dr. Duran. IR clinic visit in one year with duplex TIPS ultrasound. I spent a total of 25 minutes in face to face time with this patient and 20 minutes of that time was spent in disease review, image review, counseling, treatment planning and coordination of care as described in the progress note. Guicho Rosales MD documented in this encounter Plan of Treatment Upcoming Encounters Date Type Department Care Team (Late st Contact Info) Description 01/23/2024 10:00 EDT Office Visit [facility] General Surgery - [facility] [address] [place], [place] [address] Bon Gutierrez MD 111 [facility], [facility], [address] [place] [address] 09/10/2024 10:00 EDT Appointment Shaina Bergeron Ultrasound [address] [place], [place] [phone] documented as of this encounter Visit Diagnoses Diagnosis Alcoholic cirrhosis of liver without ascites (HCC-CMS)- Primary Alcoholic cirrhosis of liver documented in this encounter Care Teams Tube Teller Relationship Specialty Start Date End Date Katia Blanco FNP [place]yl [place] [address] PCP - General 03/26/19 09/20/22 documented as of this encounter
--- OUTSIDE RECORDS SUMMARY | 2023-12-21 12:06 | XMS_ITS | Encounter Summary ---
Author Organization [facility] Address [address] [place] [address] Care Team Providers Care Culinary Internship Name Role Phone Katia Blanco IMANI Primary Care Provider [phone] Reason for Visit * Reason Onset Date Comments Appointment Related 03/18/2021 Encounter Details Date Type Department Care Team (Late st Contact Info) Description 03/18/2021 Telephone [facility] Interventional Radiology - [address] [address] Guicho Rosales MD [address] [place] [address] 1 [place] [address] Appointment Related Social History Tobacco [...] * Telephone Encounter - Lizy Hull - 03/18/2021 1103 EST Incoming phone call from Alonzo requesting to cancel next weeks US and OV with Dr. Rosales Patient provided no further details as to why cancelling at this time. I have cancelled apts and will request to reschedule for both same day office visit and US for April 2021 documented in this encounter Plan of Treatment Upcoming Encounters Date Type Department Care Team (Late st Contact Info) Description 01/23/2024 10:00 EDT Office Visit [facility] General Surgery - [address] [phone] Bon Gutierrez MD 111 [facility], [address] [place] [phone] 09/10/2024 10:00 EDT Appointment Shaina Mejia [address] [place] [address] documented as of this encounter Visit Diagnoses Not on filedocumented in this encounter Care Teams Culinary Internship Relationship Specialty Start Date End Date [place] [address] PCP - General 03/26/19 09/20/22 documented as of this encounter
--- OUTSIDE RECORDS SUMMARY | 2023-12-21 12:06 | XMS_ITS | Encounter Summary ---
Author Organization [facility] Address [address] [place] [address] Care Team Providers Care Library Circulation Clerk Name Role Phone Katia Blanco LPC Primary Care Provider [phone] Reason for Referral * Consult (Urgent) - Specialty Report Received Specialty Diagnoses / Procedures Referred By Contact Referred To Contact Gastroenterology and Hepatology Diagnoses Alcoholic cirrhosis of liver without ascites (HCC-CMS) Guicho Rosales MD [address] [place] [phone] Brody Duran MD PhD [address] [place] [phone] Referral ID Status Reason Start Date Expiration Date Visits Requested Visits Authorized [id number] Specialty Report Received Specialty Services Required 04/24/2019 1 1 Question Answer Reason for Request: s/p TIPS- frequent issues of encephalopathy with high doses of lactolose Scheduling Comments (optional ? describe specific scheduling needs if applicable): Per Dr Rosales bradford due to encephalopathy issues Reason for Visit * Reason Comments Follow-up Encounter Details Date Type Department Care Team (Late st Contact Info) Description 04/24/2019 10:00 EST Office Visit [facility] Interventional Radiology - [address] [address] Guicho Rosales MD [address] [place] [address] Level 1 [place] [phone] Alcoholic cirrhosis of liver without ascites (HCC-CMS) [...] Sign Reading Time Taken Comments Blood Pressure 170/80 04/24/2019 0901 EST Pulse 64 04/24/2019 0901 EST Temperature - - Respiratory Rate - - Oxygen Saturation 100% 04/24/2019 0901 EST Inhaled Oxygen Concentration - - Weight - - Height - - Body Mass Index - - documented in this encounter Functional Status Functional Status Response [...] Progress Notes * Guicho Rosales MD - 04/24/2019 1000 EST Subjective: Patient ID: Alonzo Urbina is an 63 y.o. male. No chief complaint on file. HPI Alonzo is here for his TIPS surveillance. 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 He has done remarkable well, although he was admitted for decompensation and duodenal ulcer hemorrhage treated with embolization last August of 2018. He statesthat he has refrained from alcohol since Aug, 2018. He had a TIPS ultrasound today , which shows a widely patent TIPS. However, he has been suffering from weekly bouts of hepatic encephalopathy, and was admitted for encephalopathy several months ago. His lactulose dose was increased, but he continues to suffer from intermittent encephalopathy. Recently, he fell asleep for three days, as he lives by himself. He wanted to see Dr. Duran, but could not get an appointment. We discussed the possibility of performing a TIPS reduction procedure to potentially treat his encephalopathy. We will initiate a referral for Alonzo to see Dr. Duran, and then the three of us can discuss further the prosand cons of performing a TIPS reduction procedure. We discussed the indications, contraindications,risks, benefits, efficacy, expectations, procedural issues, and alternative therapies to a TIPS reduction procedure. We will discuss this procedure further, once Alonzo sees Dr. Duran. Patient Active Problem List Diagnosis ??? Chronic hepatitis C (HCC-CMS) ??? Cirrhosis of liver (HCC-CMS) ??? 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 Hepatic cirrhosis due to chronic hepatitis C infection (HCC-CMS) ??? Hematemesis ??? Rectal bleeding ??? Depression ??? Substance abuse (HCC-CMS) ??? Suicidal ideation Past Medical History: Diagnosis [...] Alcohol use: No ??? Drug use: No Outpatient Medications Marked as Taking for the 04/24/19 encounter (Office Visit) with Guicho Rosales MD Medication Sig Dispense Refill ??? lactulose 10 gram/15 mL (15 mL) solution Take 30 mL by mouth. ??? pantoprazole (PROTONIX) 40 mg tablet Take 1 Tab by mouth daily. 30 Tab 0 ??? valsartan (DIOVAN) 80 mg tablet Take 80 mg by mouth daily. Allergies Allergen Reactions ??? Ambien [Zolpidem] Sleep-driving ??? Lisinopril Cough ROS - See HPI Objective: BP (!) 170/80 Pulse 64 SpO2 100% Physical Exam deferred Assessment: Widely patent TIPS. We will initiate a referral to Dr. Duran to evaluate his intermittent hepatic encephalopathy. We will also consider a TIPS reduction procedure. Plan: Diagnoses and all orders for this visit: Alcoholic cirrhosis of liver without ascites (HCC-CMS) - AMB CONS/FOLLOW UP HEPATOLOGY Other orders - lactulose 10 gram/15 mL (15 mL) solution; Take 30 mL by mouth. - valsartan (DIOVAN) 80 mg tablet; Take 80 mg by mouth daily. Referral to Dr. Duran. I spent a total of 30 minutes in face to face time with this patient and 25 minutes of that time was spent in disease review, image review, counseling, treatment planning and coordination of care as described in the progress note. Guicho Rosales MD documented in this encounter Plan of Treatment Upcoming Encounters Date Type Department Care Team (Late st Contact Info) Description 01/23/2024 10:00 EDT Office Visit [facility] General Surgery - [address] [phone] Bon Gutierrez MD 111 [facility], [facility], Level [address] [place] [address] 09/10/2024 10:00 EDT Appointment Shaina Bergeron [facility] [address] [place] [address] Scheduled Referrals Name Type Priority Associated Diagnoses Order Schedule AMB CONS/FOLLOW UP HEPATOLOGY Outpatient Referral Routine Alcoholic cirrhosis of liver without ascites (HCC-CMS) Ordered: 04/24/2019 documented as of this encounter Visit Diagnoses Diagnosis Alcoholic cirrhosis of liver without ascites (HCC-CMS)- Primary Alcoholic cirrhosis of liver documented in this encounter Discontinued Medications Medication Sig Discontinue Reason Start Date End Da te citalopram (CELEXA) 10 mg tabletIndications:major depressive disorder Take 1 Tab by mouth daily. Therapy completed 09/12/2018 04/24/2019 losartan (COZAAR) 50 mg tabletIndications:hyperte nsion Take 1 Tab by mouth daily. Therapy completed 09/12/2018 04/24/2019 documented as of this encounter Historical Medications * This list may reflect changes made after this encounter. Medication Sig Dispensed Refills Start Date End Date valsartan (DIOVAN) 80 mg tablet Take 160 mg by mouth daily. lactulose 10 gram/15 mL (15 mL) solution Take 30 mL by mouth. added in this encounter Care Teams Library Circulation Clerk Relationship Specialty Start Date End Date Katia Blanco FNP [facility] [place] [address] PCP - General 03/26/19 09/20/22 documented as of this encounter
--- OUTSIDE RECORDS SUMMARY | 2023-12-21 12:06 | XMS_ITS | Encounter Summary ---
Author Organization [facility] Address [address] [place] [address] Care Team Providers Care Nuclear Reactor Technician Name Role Phone Katia Blanco BUMP GRADER OPERATOR Primary Care Provider [phone] Encounter Details Date Type Department Care Team ([facility] st Contact Info) Description 05/28/2019 Telephone [facility] - [facility] [address] [place], [place] [phone] Shonda Camacho [facility] [address] [place], [place] [phone] Social History Tobacco Use Types Packs/Day Years [...] * Telephone Encounter - Shonda Camacho - 05/28/2019 1247 EST Received patient's completed PAP application for rifaximin. Faxed to [employer]. Will call company later this week regarding status of application. [place]oacano JimenezD Pharmacist Clinician - Gastroenterology/Hepatology 05/28/2019 documented in this encounter Plan of Treatment Upcoming Encounters Date Type Department Care Team (Late st Contact Info) Description 01/23/2024 10:00 EDT Office Visit [facility] General Surgery - [address] [phone] Bon Gutierrez MD [address] [place] [address], [address] [place] [phone] 09/10/2024 10:00 EDT Appointment Shaina Bergeron [place] [phone] [place], [place] [phone] documented as of this encounter Visit Diagnoses Not on filedocumented in this encounter Care Teams Nuclear Reactor Technician Relationship Specialty Start Date End Date Katia Blanco [place] [address] PCP - General 03/26/19 09/20/22 documented as of this encounter
--- OUTSIDE RECORDS SUMMARY | 2023-12-21 12:06 | XMS_ITS | Encounter Summary ---
Author Organization [facility] Address [address] [place] [address] Care Team Providers Care Health Records Technology Teacher Name Role Phone Katia Blanco IMANI Primary Care Provider [phone] Reason for Referral * Vascular Lab (Routine) - Closed Specialty Diagnoses / Procedures Referred By Nisreenac t Referred To Contact Diagnoses Cirrhosis of liver without ascites, unspecified hepatic cirrhosis type (HCC-CMS) Procedures US HEPATOPORTAL VEIN DUPLEX Guicho Rosales MD [address] [place] [phone] Referral ID Status Reason Start Date Expiration Date Visits Re quested Visits Authorized [id number] Closed 01/01/2020 1 1 Reason for Visit * Vascular Lab (Routine) - Closed Specialty Diagnoses / Procedures Referred By Contreinaldo alcaraz Referred To Contact Diagnoses Cirrhosis of liver without ascites, unspecified hepatic cirrhosis type (HCC-CMS) Procedures US HEPATOPORTAL VEIN DUPLEX Guicho Rosales MD [address] [place] [phone] Referral ID Status Reason Start Date Expiration Date Visits Re quested Visits Authorized [id number] Closed 01/01/2020 1 1 Encounter Details Date Type Department Care Team (Latest Contact Info) Description 01/09/2020 8:07 EDT - 01/09/2020 23:59 EDT [facility] [address] [address] Cirrhosis of liver without ascites, unspecified hepatic cirrhosis type (HCC-CMS) Discharge Disposition: Home or Self Care [...] times daily. Obtaining through Patient Assistance Program (ShareWith[employer]), approved on 05/31/19 x1 year. Phone number for PAP: [phone] valsartan (DIOVAN) 80 mg tablet Take 160 [...] Info) Description 01/23/2024 10:00 EDT Office Visit [facility] General Surgery - [facility] [address] [place], [place] [phone] Bon Gutierrez MD [address] [facility], Level 5 [place] [phone] 09/10/2024 10:00 EDT Appointment Shaina Mejia [address] [place], [place] [address] documented as of this encounter Procedures Procedure Name Priority Date/Time Associated Diagnosis Comments US HEPATOPORTAL VEIN DUPLEX Routine 01/09/2020 9:43 EDT Cirrhosis of liver without ascites, unspecified hepatic cirrhosis type (HCC-CMS) documented in this encounter Results * [...] with the findings. Guicho Rosales MD IMG VASCU LAR ORDERABLES documented in this encounter Visit Diagnoses Diagnosis Cirrhosis of liver without ascites, unspecified hepatic cirrhosis type (HCC-CMS) documented in this encounter Care Teams Health Records Technology Teacher Relationship Specialty Start Date End Date Katia Blanco FNP [place] [address] PCP - General 03/26/19 09/20/22 documented as of this encounter
--- OUTSIDE RECORDS SUMMARY | 2023-12-21 12:06 | XMS_ITS | Encounter Summary ---
Author Organization [facility] Address [address] [place] [address] Care Team Providers Care Flight Follower Name Role Phone Katia Blanco NURSING PROGRAM MANAGER Primary Care Provider [phone] Reason for Visit * Reason Comments Follow-up Encounter Details Date Type Department Care Team (Late st Contact Info) Description 01/15/2020 14:[address] [facility] Interventional Radiology - [address] [phone] Guicho Rosales MD [address] [place] [address], Level 1 [place] [address] Alcoholic cirrhosis, unspecified whether ascites present (HCC-CMS) (Primary Dx) Social History Tobacco Use [...] Progress Notes * Guicho Rosales MD - 01/15/2020 1430 EDT No answer at [phone]. I left a voice mail that everything looks good on the ultrasound examination and that we would schedule another IR clinic visit and ultrasound in 1 year. I told him to callour office if he has any questions. documented in this encounter Plan of Treatment Upcoming Encounters Date Type Department Care Team (Late st Contact Info) Description 01/23/2024 10:[address] [facility] General Surgery - [address] [address] Bon Gutierrez MD [address] [place] [address], Level 5 [place] [address] 09/10/2024 10:00 EDT Appointment Shaina Bergeron Ultrasound [address] [place] [address] documented as of this encounter Visit Diagnoses Diagnosis Alcoholic cirrhosis, unspecified whether ascites present (HCC-CMS)- Primary documented in this encounter Care Teams Flight Follower Relationship Specialty Start Date End Date Katia Blanco FNP [address] [place] [address] PCP - General 03/26/19 09/20/22 documented as of this encounter
--- OUTSIDE RECORDS SUMMARY | 2023-12-21 12:06 | XMS_ITS | Encounter Summary ---
Author Organization [facility] Address [address] [place] [address] Care Team Providers Care Personal Care Service Provider Name Role Phone Katia Blanco Primary Care Provider [phone] Reason for Referral * Medication Prior Authorization (Routine) - Closed Specialty Diagnoses / Procedures Referred By Contact Referred To Contact Gastroenterology and Hepatology Diagnoses Hepatic cirrhosis, unspecified hepatic cirrhosis type, unspecified whether ascites present (HCC-CMS) Encephalopathy, hepatic (HCC-CMS) Brody Duran MD PhD 111 [facility] 5 [place] [address] [place] [address] [place] [address] Referral ID Status Reason Start Date Expiration Date Visits Requested Visits Authorized [id number] Closed Medication Prior Authorization 05/15/2019 1 1 Question Answer Medication to be Prior Authorized: please request hepatic enceophalopathy rx: rifaximin 550 mg bid Comments The purpose of this consult request is to inform the scheduling staff that a medication needs to be prior-authorized before it is prescribed and/or administered. Reason for Visit * Reason Comments New Patient Visit Cirrhosis * Consult (Urgent) - Specialty Report Received Specialty Diagnoses / Procedures Referred By Contact Referred To Contact Gastroenterology and Hepatology Diagnoses Alcoholic cirrhosis of liver without ascites (HCC-CMS) Guicho Rosales MD [address] [place] [address] 1 [place] [address] Brody Duran MD PhD [address] [place] [phone] Referral ID Status Reason Start Date Expiration Date Visits Requested Visits Authorized [id number] Specialty Report Received Specialty Services Required 04/24/2019 1 1 Encounter Details Date Type Department Care Team (Late st Contact Info) Description 05/15/2019 14:30 EST Office Visit [facility] Gastroenterology - [place] [phone] Brody Duran MD PhD [address] [place] [phone] Hepatic cirrhosis, unspecified hepatic cirrhosis type, [...] EST Pulse 98 05/15/2019 1356 EST Temperature - - Respiratory Rate - - Oxygen Saturation - - Inhaled Oxygen Concentration - - Weight 96.6 kg (213 lb) 05/15/2019 1356 EST Height 157.5 cm (5' 2) 05/15/2019 1356 EST Body Mass Index 38.96 05/15/2019 1356 EST documented in this encounter Functional Status Functional [...] as of this encounter Progress Notes * Brody Duran MD - 05/15/2019 1430 EST This office note has been dictated. * Brody Duran MD - 05/15/2019 0000 EST [facility] GASTROENTEROLOGY AND HEPATOLOGY PROGRESS / FOLLOWUP NOTE - 05/15/2019 [place] [address] Dear Ms Blanco: This is to let you know that I have seen your patient, Alonzo Urbina, in the office at the request of interventional radiologist, Dr Guicho Rosales. 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 I last saw him in the office in February 2015, when he was asymptomatic from the standpoint of liver disease, and the MELD score was 11 (range 6 to 40). Since then, he had several major changes his social milieu, including alcohol use disorder and suicidalideation. He was hospitalized at [facility] in the spring, with gastrointestinal bleeding secondary to a duodenal ulcer with angiographic embolization. He subsequently had an inpatient psychiatric admission, and alcohol use disorder has been successfully managed. He is not consumingalcoholic beverages currently, he is participating in Alcoholics Anonymous, and is stably housed (lives alone). Although there has been no jaundice, ascites, or recurrent gastrointestinal bleeding, taco recent development has been progressive hepatic encephalopathy, with episodes of disorientation that occur approximately weekly and last approximately 2 hours. The patient is taking lactulose for this and is achieving at least 4 bowel movements per day. In April 2019, he underwent duplex ultrasound of the liver and normal flow through the TIPS was identified. Dr Rosales has asked my opinion about potential management options for hepatic encephalopathy. Current medications include lactulose, pantoprazole and valsartan. On physical examination, the patient was found to be an obese white man, weight 213 pounds (BMI 38.96), blood pressure 140/89, pulse 98. The skin revealed no spider angiomata. The sclerae were clear.The oropharynx was clear. The neck revealed no lymphadenopathy. The lungs were clear. Cardiac examination revealed a regular rhythm. The abdomen revealed no obvious ascites. It was soft, nontender, and no masses were appreciated. I could not palpate a liver or spleen. There was no pretibial edema. Neurologically, the patient was alert and oriented, and asterixis was present bilaterally. Laboratory data obtained in August 2018 show white blood cell count 3.03, hematocrit 34.4, platelets 133. INR 1.2, bilirubin 0.9, ALT 94, AST 33, sodium 139, creatinine 0.8. The MELD score was 8. In summary, Mr Urbina has decompensated cirrhosis, which has been complicated by prior gastrointestinal portal hypertensive bleeding and more recently progressive hepatic encephalopathy. It is possible that flow through the TIPS shunt could be contributing to hepatic encephalopathy and that interventions to decrease TIPS flow may be beneficial. The advantages of this need to be weighed against the potential risks of precipitating recurrent portal hypertensive gastrointestinal bleeding. Before resorting to these measures, I would like to attempt a trial of addition of rifaximin to lactulose (which should be titrated to 2 to 4 bowel movements daily. It is also possible that zinc deficiency is contributing to hepatic encephalopathy and I will arrange for determination of serum zinc. I will be in touch with you and the patient with the results of testing. My only other recommendation is that the patient continue to be monitored at least every 6 months with a complete blood count, comprehensive metabolic panel and prothrombin time. I would request to Dr Rosales that he ensure that surveillance duplex testing performed every 6 months to monitor for TIPS patency also includes formal hepatic imaging as part of surveillance for hepatocellular carcinoma,for which the patient is at risk. I do not know the current indication for pantoprazole. Unless you are aware of one, this should be discontinued. My only other recommendations are that you monitor the patient at least every 6 monthswith a complete blood count, comprehensive metabolic panel, and prothrombin time. I have not scheduled a routine followup appointment, but I would be prepared to see him if episodic confusion does not improve after 1 month of institution of rifaximin, if there is evidence of a new hepatic mass lesion on surveillance imaging, or if the MELD score increases above 15. Thank you once again for allowing me to see this patient in consultation with you. Should you have any further questions regarding this evaluation, please feel free to contact me at any time. Sincerely, Brody Duran MD,PhD 04 24 PM - Brody Duran MD,PhD dn Dictation ID: [id number] cc: Guicho Rosales MD, [facility] - Radiology [address] [place] [address] Katia Blanco [facility], [address] [address] documented in this encounter Plan of Treatment Upcoming Encounters Date Type Department Care Team (Late st Contact Info) Description 01/23/2024 10:00 EDT Office Visit [facility] General Surgery - [address] [address] Bon Gutierrez MD 111 [facility], Level [address] [place] [address] 09/10/2024 10:00 EDT Appointment Shaina Bergeron Ultrasound [address] [place] [phone] Scheduled Referrals Name Type Priority Associated Diagnoses Order Schedule AMB MEDICATION PRIOR AUTHORIZATION Outpatient Referral Routine Hepatic cirrhosis, unspecified hepatic cirrhosis type, unspecified whether ascites present (HCC-CMS) Encephalopathy, hepatic (HCC-CMS) Ordered: 05/15/2019 documented as of this encounter Results * (ABNORMAL) ZINC (05/15/2019 14:57 EST) Zinc, S 0.56(L) 0.66 - 1.10 mcg/mL 05/16/2019 15:58 EST [facility] Comment: ADDITIONAL INFORMATION This test was developed and its performance characteristics determined by [facility] in a manner consistent with CLIA requirements. This test has not been cleared or approved by the U.S. Food and Drug Administration. Test Performed by: [facility] [address] [place] [address] Assistant Purchasing Manager: Kojo Mdaison M.D. Ph.D.; CLIA# [id number] Blood VENOUS BLOOD / Unknown Venipuncture / Unknown 05/15/2019 14:57 EST 05/15/2019 15:24 EST Brody Duran MD PhD CHEMISTRY & BLO OD GAS ORDERABLES Performing Organization Address City/State/[facility] Co de Phone Number [facility] [address] [place] [address] * (ABNORMAL) PROTIME (05/15/2019 14:57 EST) I.N.R. 1.2(H) 0.9 - 1.1 Ratio 05/15/2019 15:[address] [facility] Pro Time 14.2(H) 10.3 - 13.4 secs 05/15/2019 15:[address] [facility] Blood VENOUS BLOOD / Unknown Venipuncture / Unknown 05/15/2019 14:57 EST 05/15/2019 15:[address] [facility] - 05/15/2019 15:50 EST Moderate Intensity Coumadin INR = 2.0-3.0 Adjustments in anticoagulant therapy dose should be based on the INR and NOT on the Protime. Brody Duran MD PhD HEMATOLOGY & PF 4 ORDERABLES Performing Organization Address City/[facility]/ZIP Co de Phone Number [facility] [address] [place] [address] * (ABNORMAL) COMPLETE BLOOD COUNT (05/15/2019 14:57 EST) WBC 3.38(L) 4.00 - 10.40 K/cmm 05/15/2019 15:34 [facility] RBC 4.30(L) 4.36 - 5.78 M/cmm 05/15/2019 15:34 [facility] Hemoglobin 11.3(L) 13.8 - 17.3 gm/dL 05/15/2019 15:34 [facility] HCT 35.2(L) 39.5 - 50.2 % 05/15/2019 15:34 [facility] MCV 82 81 - 95 fl 05/15/2019 15:34 [facility] MCH 26.3(L) 27.6 - 33.0 pg 05/15/2019 15:34 [facility] MCHC 32.1(L) 32.8 - 36.4 gm/dL 05/15/2019 15:34 [facility] RDW-CV 15.3(H) <14.2 % 05/15/2019 15:34 [facility] RDW-SD 45.0 <46.0 fl 05/15/2019 15:34 [facility] PLT 137(L) 141 - 377 K/cmm 05/15/2019 15:34 [facility] MPV 8.8(L) 9.5 - 12.7 fl 05/15/2019 15:34 [facility] Blood VENOUS BLOOD / Unknown Venipuncture / Unknown 05/15/2019 14:57 EST 05/15/2019 15:24 EST Brody Duran MD PhD HEMATOLOGY & PF 4 ORDERABLES Performing Organization Address City/[facility]/ZIP Co de Phone Number [facility] [address] [place] [address] * (ABNORMAL) COMPREHENSIVE METABOLIC PANEL (CMP) (05/15/2019 14:57 [facility]) Sodium 141 136 - 145 mEq/L 05/15/2019 15:53 [facility] Potassium 4.4 3.5 - 5.0 mEq/L 05/15/2019 15:53 [facility] Chloride 108 96 - 110 mEq/L 05/15/2019 15:53 [facility] CO2 Total 25 22 - 32 mEq/L 05/15/2019 15:53 [facility] Glucose 140(H) 70 - 100 mg/dL 05/15/2019 15:53 [facility] BUN 16 10 - 26 mg/dL 05/15/2019 15:53 [facility] Creatinine 0.82 0.66 - 1.25 mg/dL 05/15/2019 15:53 [facility] eGFR 93 >60 mL/min/1.7 3m2 05/15/2019 15:53 [facility] Comment:eGFR calculated crystal mclaughlin CKD-EPI equation for non- Americans. Multiply eGFR by 1.16 for patients. Total Protein 6.6 6.3 - 8.2 g/dL 05/15/2019 15:53 [facility] Albumin 3.7 3.4 - 4.9 g/dL 05/15/2019 15:53 [facility] Alkaline Phosphatase 75 38 - 126 U/L 05/15/2019 15:53 [facility] AST 34 15 - 46 U/L 05/15/2019 15:53 [facility] ALT 27 <50 U/L 05/15/2019 15:53 [facility] Bilirubin, Total 0.9 <1.4 mg/dL 05/15/19 20 15:53 [facility] Calcium 9.4 8.5 - 10.5 mg/dL 05/15/2019 15:53 [facility] Calculated Calcium 9.6 8.5 - 10.5 mg/dL 05/15/2019 15:53 [facility] Blood VENOUS BLOOD / Unknown Venipuncture / Unknown 05/15/2019 14:57 EST 05/15/2019 15:[address] [facility] - 05/15/2019 15:53 EST 1 Brody Duran MD PhD CHEMISTRY & BLO OD GAS ORDERABLES [facility] [address] [place] [address] documented in this encounter Visit Diagnoses Diagnosis Hepatic cirrhosis, unspecified hepatic cirrhosis type, unspecified whether ascites present (HCC-CMS)- Primary Encephalopathy, hepatic (HCC-CMS) Hepatic encephalopathy documented in this encounter Care Teams Personal Care Service Provider Relationship Specialty Start Date End Date Katia Blanco [place] [address] PCP - General 03/26/19 09/20/22 documented as of this encounter
--- OUTSIDE RECORDS SUMMARY | 2023-12-21 12:06 | XMS_ITS | Encounter Summary ---
Author Organization [facility] Address [address] [place] [address] Care Team Providers Care Lead Tank Mechanic Name Role Phone Katia Blanco IMANI Primary Care Provider [phone] Reason for Visit * Reason Onset Date Comments Appointment Related 07/03/2021 Encounter Details Date Type Department Care Team (Late st Contact Info) Description 07/03/2021 Telephone [facility] Interventional Radiology - [address] [address] Guicho Rosales MD [address] [place] [address] 1 [place] [address] Appointment Related Social History Tobacco [...] * Telephone Encounter - Lizy Hull - 07/03/2021 1314 EDT Called Alonzo regarding planning for IR follow up with Dr. Rosales Patient had no showed previous attempts to schedule US and OV with Dr. Rosales I have confirmed with radiology scheduling that this order active to schedule until December 2021 I left Alonzo a detailed message requesting return phone call to radiology scheduling at [phone] to schedule Ultrasound when he is available- it is more critical to get scan r/s than have office visit I will check status in a few days to see if he has r/s this exam documented in this encounter Plan of Treatment Upcoming Encounters Date Type Department Care Team (Late st Contact Info) Description 01/23/2024 10:00 EDT Office Visit [facility] General Surgery - [address] [address] Bon Gutierrez MD 111 [facility], Level [address] [place] [phone] 09/10/2024 10:00 EDT Appointment Shaina Bergeron Ultrasound [address] [place], [place] [address] documented as of this encounter Visit Diagnoses Not on filedocumented in this encounter Care Teams Lead Tank Mechanic Relationship Specialty Start Date End Date Katia Blanco FNP [facility] [address] PCP - General 03/26/19 09/20/22 documented as of this encounter
--- OUTSIDE RECORDS SUMMARY | 2023-12-21 12:06 | XMS_ITS | Encounter Summary ---
Author Organization [facility] Address [address] [place] [address] Care Team Providers Care Wastewater Treatment Plant Operator Name Role Phone Katia Blanco IMANI Primary Care Provider [phone] Reason for Visit * Reason Onset Date Comments Appointment Related 06/22/2021 Encounter Details Date Type Department Care Team (Late st Contact Info) Description 06/22/2021 Telephone [facility] Interventional Radiology - [address] [address] Guicho Rosales MD [address] [place] [address] 1 [place] [address] Appointment Related Social History Tobacco [...] * Telephone Encounter - Lizy Hull - 06/22/2021 1343 EDT Called and left detailed voicemail for Alonzo requesting return phone call to IR clinic to confirm plan for upcoming appointments with Dr. Rosales 06/30 Left details- US Silva @ 8:!5am; 830 scan- fasting after midnight Relayed follow up office visit to happen with provider post ultrasound at 10:30am Requesting return phone call to [phone] for confirmation of this plan. documented in this encounter Plan of Treatment Upcoming Encounters Date Type Department Care Team (Late st Contact Info) Description 01/23/2024 10:00 EDT Office Visit [facility] General Surgery - [facility] [address] [place], [place] [address] Bon Gutierrez MD 111 [facility], [facility], Level [address] [place] [address] 09/10/2024 10:00 EDT Appointment Shaina Bergeron Ultrasound [address] [place], [place] [address] documented as of this encounter Visit Diagnoses Not on filedocumented in this encounter Care Teams Wastewater Treatment Plant Operator Relationship Specialty Start Date End Date Katia Blanco F[place] [address] PCP - General 03/26/19 09/20/22 documented as of this encounter
--- OUTSIDE RECORDS SUMMARY | 2023-12-21 12:06 | XMS_ITS | Encounter Summary ---
Author Organization [facility] Address [address] [place] [address] Care Team Providers Care Companion Name Role Phone Katia Blanco MOLASSES AND CARAMEL OPERATOR Primary Care Provider [phone] George Lou RPA Primary Care Provider [phone] Encounter Details Date Type Department Care Team (Late st Contact Info) Description 01/11/2020 Lab Requisition [facility] Pathology & Laboratory Medicine - [facility] [address], [place] [id number] Outr Resulting Lab, Provider Social History Tobacco [...] 01/23/2024 10:00 EDT Office Visit [facility] General Surgery - [address] [address] Bon Gutierrez MD [address] [facility], [address] [place] [phone] 09/10/2024 10:00 EDT Appointment Shaina Bergeron Jackie [address] [place], [place] [phone] documented as of this encounter Procedures Procedure Name Priority Date/Time Associated Diagnosis Comments DO NOT ORDER STANDALONE - BROAD COVID TEST Today 01/11/2020 9:08 EDT COVID-19 TESTING Routine 01/11/2020 9:08 EDT documented in this encounter Results * DO NOT ORDER STANDALONE - BROAD COVID TEST (01/11/2020 9:08 EDT) COVID-19 rt-PCR Result NEGATIVE Negative 01/12/2020 18:18 EDT [facility] Comment: 2019-novel Coronavirus (2019-nCoV) not detected by the qRT-PCR assay. Consider testing for other respiratory viruses or re-collecting for 2019-nCoV testing. Note: Optimum timing for peak viral levels during infections caused by 2019-nCoV have not been determined. Collection of multiple specimens from the same patient may be necessary to detect the virus. Limitations Positive results are indicative of active infection with SARS-CoV-2 but do not rule out bacterial infection or co-infection with other viruses. The agent detected may not be the definite cause of disease. In addition, detection of viral RNA may not indicate the presence of infectious virus or that SARS-CoV-2 is the causative agent for clinical symptoms. Negative results do not preclude SARS-CoV-2 infection and should not be used as the sole basis for patient management decisions. Negative results must be combined with clinical observations, patient history, and epidemiological information. False negative results may also occur if amplification inhibitors are present in the specimen or if inadequate numbers of organisms are present in the specimen. Optimum specimen types and timing for peak viral levels during infections caused by SARS-CoV-2 have not been fully determined. Collection of multiple specimens (types and time points) from the same patient may be necessary to detect the virus. The test was validated for use with upper respiratory specimens obtained via nasopharyngeal or oropharyngeal swabs in VTM, UTM, M4, M5, M6, saline, and MTM media. The performance of this test has not been established for other specimens. Specimens collected using other FDA recommended Specimen Collection Materials listed in the FDA COVID-19 Diagnostic [employer] communication (July 05, 2019) are processed with the caveat that they were not all validated for use with this test and the result must be interpreted in this context. Furthermore, a false negative results may occur if a specimen is improperly collected, transported or handled. If the virus mutates in the RT-PCR target region, SARS-CoV-2 may not be detected or may be detected less predictably. Inhibitors or other types of interference may produce a false negative result. An interference study evaluating the effect of common cold medications was not performed. This test is not FDA-cleared but its performance characteristics were established by our CLIA-certified, CAP-accredited, high complexity laboratory in accordance with CLIA regulations, College of [place] (CAP) guidelines (Jun 28, 2019), and FDA guidance (Jun 09, 2019). This test is only for use under the Food and Drug Administration's Emergency Use Authorization. Swab ENTIRE NASOPHARYNX / Unknown 01/11/2020 9:08 EDT 01/11/2020 15:42 EDT Provider Outr Resulting Lab MICROBIOLOGY - GENERAL ORDERABLES [facility] [place] * COVID-19 TESTING (01/11/2020 9:08 EDT) COVID-19 rt-PCR Result NEGATIVE Negative 01/12/2020 21:[address] [facility] Comment: 2019-novel Coronavirus (2019-nCoV) not detected by the qRT-PCR assay. Consider testing for other respiratory viruses or re-collecting for 2019-nCoV testing. Note: Optimum timing for peak viral levels during infections caused by 2019-nCoV have not been determined. Collection of multiple specimens from the same patient may be necessary to detect the virus. Limitations Positive results are indicative of active infection with SARS-CoV-2 but do not rule out bacterial infection or co-infection with other viruses. The agent detected may not be the definite cause of disease. In addition, detection of viral RNA may not indicate the presence of infectious virus or that SARS-CoV-2 is the causative agent for clinical symptoms. Negative results do not preclude SARS-CoV-2 infection and should not be used as the sole basis for patient management decisions. Negative results must be combined with clinical observations, patient history, and epidemiological information. False negative results may also occur if amplification inhibitors are present in the specimen or if inadequate numbers of organisms are present in the specimen. Optimum specimen types and timing for peak viral levels during infections caused by SARS-CoV-2 have not been fully determined. Collection of multiple specimens (types and time points) from the same patient may be necessary to detect the virus. The test was validated for use with upper respiratory specimens obtained via nasopharyngeal or oropharyngeal swabs in VTM, UTM, M4, M5, M6, saline, and MTM media. The performance of this test has not been established for other specimens. Specimens collected using other FDA recommended Specimen Collection Materials listed in the FDA COVID-19 [employer] communication (July 05, 2019) are processed with the caveat that they were not all validated for use with this test and the result must be interpreted in this context. Furthermore, a false negative results may occur if a specimen is improperly collected, transported or handled. If the virus mutates in the RT-PCR target region, SARS-CoV-2 may not be detected or may be detected less predictably. Inhibitors or other types of interference may produce a false negative result. An interference study evaluating the effect of common cold medications was not performed. This test is not FDA-cleared but its performance characteristics were established by our CLIA-certified, CAP-accredited, high complexity laboratory in accordance with CLIA regulations, College of [place] [employer] (CAP) guidelines (Jun 28, 2019), and FDA guidance (Jun 09, 2019). This test is only for use under the Food and Drug Administration's Emergency Use Authorization. Performing Lab [facility] [place] 01/12/2020 21:[address] [facility] Swab 01/11/2020 9:08 EDT 01/11/2020 15:42 EDT Provider Outr Resulting Lab MICROBIOLOGY - GENERAL ORDERABLES [facility] [address] [place] [address] [facility] [place], [place] documented in this encounter Visit Diagnoses Not on filedocumented in this encounter Care Teams Companion Relationship Specialty Start Date End Date Katia Blanco FNP [address] [place], [place] [address] PCP - General 03/26/19 09/20/22 George Lou RPA [address] [id number] PCP - General Family Medicine - Primary Care 09/21/22 documented as of this encounter
--- OUTSIDE RECORDS SUMMARY | 2023-12-21 12:06 | XMS_ITS | Encounter Summary ---
Author Organization [facility] Address [address] [place] [address] Care Team Providers Care Editor Newspaper Name Role Phone Katia Blanco CALL CENTER AGENT Primary Care Provider [phone] George Lou RPA Primary Care Provider [phone] Encounter Details Date Type Department Care Team (Late st Contact Info) Description 11/25/2019 Lab Requisition [facility] Pathology & Laboratory Medicine - [facility] [address] [place], [place] [phone] Outr Resulting Lab, Provider Social History Tobacco [...] Info) Description 01/23/2024 10:00 EDT Office Visit [facility] General Surgery - [facility] [address] [place], [place] [address] Bon Gutierrez MD 111 [facility], [address] [place] [address] 09/10/2024 10:00 EDT Appointment Shaina Mejia [address] [place] [address] documented as of this encounter Procedures Procedure Name Priority Date/Time Associated Diagnosis Comments ZZCOVID-19 TEST [facility] PCR Today 11/25/2019 6:57 EDT COVID-19 TESTING Routine 11/25/2019 6:57 EDT documented in this encounter Results * COVID-19 TEST [facility] (11/25/2019 6:57 EDT) Swab ENTIRE NASOPHARYNX / Unknown 11/25/2019 6:57 EDT 11/25/2019 15:59 EDT Provider Outr Resulting Lab MICROBIOLOGY - GENERAL ORDERABLES [facility] [address] [place] [address] * COVID-19 TESTING (11/25/2019 6:57 EDT) COVID-19 rt-PCR Result Negative Negative 11/25/2019 21:27 EDT [facility] Comment: This test has not [...] history, and epidemiological information. Performed on the Individual Digital instrument Performing Lab Roy [facility] 11/25/2019 21:27 EDT [facility] Swab 11/25/2019 6:57 EDT 11/25/2019 15:59 EDT Provider Outr Resulting Lab MICROBIOLOGY - GENERAL ORDERABLES Performing Organization Address City/State/[facility] Co de Phone Number [facility] [address] [place] [address] documented in this encounter Visit Diagnoses Not on filedocumented in this encounter Care Teams Editor Newspaper Relationship Specialty Start Date End Date Katia Blanco FNP [address] [place], [place] [phone] PCP - General 03/26/19 09/20/22 George Lou RPA [address] [id number] PCP - General Family Medicine - Primary Care 09/21/22 documented as of this encounter
--- OUTSIDE RECORDS SUMMARY | 2023-12-21 12:06 | XMS_ITS | Encounter Summary ---
Author Organization [facility] Address [address] [place] [address] Care Team Providers Care Loan Processor Name Role Phone CarmineGeorge NORMA Primary Care Provider [phone] Reason for Visit * Reason Comments Follow-up Encounter Details Date Type Department Care Team (Late st Contact Info) Description 09/21/2022 11:00 EDT Office Visit [facility] Interventional Radiology - [address] [address] Guicho Rosales MD [address] [place] [address], [address] [place] [address] Alcoholic cirrhosis of liver without [...] Progress Notes * Guicho Rosales MD - 09/21/2022 1100 EDT Subjective: Patient ID: Alonzo Urbina is an 67 y.o. male. No chief complaint on file. HPI Alonzo is here 9 years post TIPS. He has done very well. He has no complaint. Specifically, his energy level is excellent and he has no bouts of confusion. He is not taking a laxative. 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 He has been abstinent of alcohol for over 4 years. He is anxious to go over his duplex ultrasound obtained today, which shows a patent TIPS and no evidence of TIPS dysfunction. Patient Active Problem List Diagnosis ??? History of hepatitis C ??? Cirrhosis of liver (HCC-CMS) ??? Red [...] History Tobacco Use ??? Smoking status: Never ??? Smokeless tobacco: Never Substance Use Topics ??? Alcohol use: No ??? Drug use: No Outpatient Medications Marked as Taking for the 09/21/22 encounter (Appointment) with Guicho Rosales MD Medication Sig Dispense Refill ??? semaglutide (OZEMPIC) subcutaneous pen Inject into the skin. Pt unsure of dose, but knows he takes weekly. Believes medication is Ozempic Allergies Allergen Reactions ??? Ambien [Zolpidem] Sleep-driving ??? Lisinopril Cough ROS - See HPI Objective: There were no vitals taken for this visit. Physical Exam Assessment: Patent TIPS. Doing well 9 years post TIPS. He states he has been sober for the past 4 years. Plan: There are no diagnoses linked to this encounter. TIPS duplex ultrasound and IR clinic visit in one year. I spent a total of 30 minutes [...] Description 01/23/2024 10:00 EDT Office Visit [facility] General Surgery - [facility] [address] [place], [place] [address] Bon Gutierrez MD 111 [facility], [address] [place] [phone] 09/10/2024 10:00 EDT Appointment Shaina Bergeron Ultrasound [address] [place] [address] documented as of this encounter Visit Diagnoses Diagnosis Alcoholic cirrhosis of liver without ascites (HCC-CMS)- Primary Alcoholic cirrhosis of liver documented in this encounter Discontinued Medications Medication Sig Discontinue Reason Start Date End Da te JARDIANCE 10 mg tablet Therapy completed 06/03/2022 023 documented as of this encounter Historical Medications * This list may reflect changes made after this encounter. Medication Sig Dispensed Refills Start Date End Date semaglutide (OZEMPIC) subcutaneous pen Inject into the skin. Pt unsure of dose, but knows he takes weekly. Believes medication is Ozempic JARDIANCE 10 mg tablet 06/03/202209/21 added in this encounter Care Teams Loan Processor Relationship Specialty Start Date End Date George Lou RPA [address] [place] [address] PCP - General Family Medicine - Primary Care 09/21/22 documented as of this encounter
--- OUTSIDE RECORDS SUMMARY | 2023-12-21 12:06 | XMS_ITS | Encounter Summary ---
Author Organization [facility] Address [address] [place] [address] Care Team Providers Care Truck Driver Heavy Name Role Phone Laurie Wiggins MD Primary Care Provider [phone] Reason for Referral * Vascular Lab (Routine) - Closed Specialty Diagnoses / Procedures [facility] To Contact Diagnoses 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) Procedures US HEPATOPORTAL VEIN DUPLEX Guicho Rosales MD [address] [place] [phone] Referral ID Status Reason Start Date Expiration Date Visits Re quested Visits Authorized [id number] Closed 03/25/2019 1 1 Encounter Details Date Type Department Care Team (Late st Contact Info) Description 02/23/2019 Orders Only [facility] [place] [address] Guicho Rosales MD [address] [place] [phone] 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) (Primary Dx) Social History Tobacco Use [...] Office Visit [facility] General Surgery - [address] [id number] Bon Gutierrez MD 111 [facility], [address] [place] [phone] 09/10/2024 10:00 EDT Appointment Shaina Mejia [address] [place] [address] documented as of this encounter Results * [...] cm MCKESSON Intrahepatic vein rhonda 2 cm/s KESSON Ped/Liver transplant liver measurement 12.30 cm 8min[employer]ergy RenewablesSON Anatomical Region Laterality Modality Vascular Ultrasound Narrative 04/24/2019 10:46 EST ?Cholelithiasis ?All segments of the TIPS are patent. Incidental Findings Multiple gallbladder stones Hepatoportal Venous The liver echotexture was heterogeneous. All segments of the TIPS shunt are patent. Guicho Rosales MD IMG VASCU LAR ORDERABLES documented in this encounter Visit Diagnoses Diagnosis 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)- Primary Cirrhosis of liver without mention of alcohol 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) Cirrhosis of liver without mention of alcohol documented in this encounter Care Teams Truck Driver Heavy Relationship Specialty Start Date End Date Laurie Wiggins MD PCP - General 05/08/18 03/25/19 documented as of this encounter
--- OUTSIDE RECORDS SUMMARY | 2023-12-21 12:06 | XMS_ITS | Encounter Summary ---
Author Organization [facility] Address [address] [place] [address] Care Team Providers Care Sanitarian Aide Name Role Phone CarmineGeorge NORMA Primary Care Provider [phone] Encounter Details Date Type Department Care Team (Late st Contact Info) Description 08/24/2023 Lab Requisition [facility] Pathology & Laboratory Medicine - [address] [address] Outr Resulting Lab, Provider Social History Tobacco [...] Info) Description 01/23/2024 10:00 EDT Office Visit [facility] General Surgery - [facility] [address] [place], [place] [phone] Bon Gutierrez MD 111 [facility], [address] [place] [address] 09/10/2024 10:00 EDT Appointment Shaina Mejia [address] [place] [address] documented as of this encounter Procedures Procedure Name Priority Date/Time Associated Diagnosis Comments H. PYLORI ANTIGEN Routine 08/23/2023 16: 41 EDT documented in this encounter Results * H. PYLORI ANTIGEN (08/23/2023 16:41 EDT) H. Pylori Negative Negative 08/26/2023 14:34 EDT [facility] Comment:Indicates the absenc e of H. pylori stool antigen, (or the level of antigen is below that which can be detected by the assay) Feces SPECIMEN FROM RECTUM / Unknown 08/23/2023 16:41 EDT 08/24/2023 17:15 EDT Narrative [facility] - 08/26/2023 14:34 EDT New Liaison XL testing method used as of 01/31/2023 Provider Outr Resulting Lab MICROBIOLOGY - GENERAL ORDERABLES [facility] [address] [place], [place] [phone] documented in this encounter Visit Diagnoses Not on filedocumented in this encounter Care Teams Sanitarian Aide Relationship Specialty Start Date End Date George Lou RPA [address] [place] [address] PCP - General Family Medicine - Primary Care 09/21/22 documented as of this encounter
--- OUTSIDE RECORDS SUMMARY | 2023-12-21 12:07 | XMS_ITS | Encounter Summary ---
Author Organization [facility] Address [address] [place] [address] Care Team Providers Care Process Development Engineer Name Role Phone Laurie Wiggins MD Primary Care Provider [phone] Encounter Details Date Type Department Care Team (Late st Contact Info) Description 02/03/2019 Results Only Imaging [facility] [phone] Unknown, Provider, Social History Tobacco Use Types Packs/Day Years [...] Info) Description 01/23/2024 10:00 EDT Office Visit [facility] General Surgery - [address] [address] Bon Gutierrez MD [address] [place] [address], [address] [place] [phone] 09/10/2024 10:00 EDT Appointment Shaina Bergeron Ultrasound [address] [place] [address] Pending Results Name Type Priority Associated Diagnoses Date /Time OUTSIDE IMAGES - US BODY Imaging 02/03/2019 12:23 EDT documented as of this encounter Visit Diagnoses Not on filedocumented in this encounter Care Teams Process Development Engineer Relationship Specialty Start Date End Date Laurie Wiggins MD PCP - General 05/08/18 03/25/19 documented as of this encounter
--- OUTSIDE RECORDS SUMMARY | 2023-12-21 12:07 | XMS_ITS | Encounter Summary ---
Author Organization [facility] Address [address] [place] [address] Care Team Providers Care Elevator Repair Mechanic Name Role Phone Laurie Wiggins MD Primary Care Provider [phone]- [phone] Reason for Visit * Reason Comments Follow-up Encounter Details Date Type Department Care Team (Late st Contact Info) Description 07/18/2018 10:15 EDT Office Visit [facility] Interventional Radiology - [address] [id number] Guicho Rosales MD [address] [place] [address] 1 [place] [address] Alcoholic cirrhosis of liver without ascites (HCC-CMS) (Primary Dx) Discharge Disposition: Auto Discharge Social History Tobacco Use Types Packs/Day Years [...] Sign Reading Time Taken Comments Blood Pressure 160/70 07/18/2018 1009 EDT Pulse - - Temperature - - Respiratory Rate - - Oxygen Saturation - - Inhaled Oxygen Concentration - - Weight - - Height - - Body Mass Index - - documented in this encounter Functional Status Functional Status Response Date of Assess ment Are you deaf or do you have serious difficulty h earing? No 06/24/2018 Are you blind or do you have serious difficulty seeing, even when wearing glasses? No 06/24/2018 Do you have serious difficul ty walking or climbing stairs? (5 years old or older) No 06/24/2018 Do you have difficulty dress ing or bathing? (5 years old or older) No 06/24/2018 Because of a physical, menta l, or emotional condition, do you have difficulty doing errands alone such as visiting a doctor's office or shopping? (15 years old or older) No 06/24/2018 Cognitive Status Response Date of Assessm ent Because of a physical, menta l, or emotional condition, do you have serious difficulty concentrating, remembering, or making decisions? (5 years old or older) No 06/24/2018 documented as of this encounter Discharge Diagnoses Diagnosis K70.30 Alcoholic cirrhosis of liver without ascites-K70.30[ICD-10-CM] documented in this encounter Discharge Disposition Disposition Code Departure Means Destination Auto Discharge documented in this encounter Progress Notes * Guicho Rosales MD, MD - 07/18/2018 1015 EDT Subjective: Patient ID: Alonzo Urbina is an 63 y.o. male. No chief complaint on file. HPI Mr. Urbina has cirrhosis and is s/p a TIPS in 2013 and has recently moved back to [place]. He was recently hospitalized several weeks ago for a bleeding duodenal ulcer that was successfully embolized (GDA) by Dr. Castro. Over the past 18 months, he has been hospitalized 5 times for rectal bleeding, but this last hospitalization seems to have been the only time the bleeding duodenal ulcer was diagnosed. 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 He feels good and is without complaint. He denies confusion, slurred speech, altered gait, or ascites. Patient Active Problem List Diagnosis ??? Chronic hepatitis C (HCC-CMS) ??? Cirrhosis of liver (HCC-CMS) ??? 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 Hepatic cirrhosis due to chronic hepatitis C infection (HCC-CMS) ??? Hematemesis ??? Rectal bleeding Past Medical History: Diagnosis Date ??? Anemia [...] Outpatient Medications Marked as Taking for the 07/18/18 encounter (Office Visit) with Guicho Rosales MD Medication Sig Dispense Refill ??? LACTULOSE ORAL Take by mouth. ??? losartan (COZAAR) 50 mg tablet Take 50 mg by mouth 2 times daily. ??? pantoprazole (PROTONIX) 40 mg tablet Take 1 tablet by mouth 2 times daily. 120 tablet 0 Allergies Allergen Reactions ??? Ambien [Zolpidem] Sleep-driving ROS - See HPI Objective: BP (!) 160/70 Physical Exam Deferred TIPS ultrasound 06/24/18: Patent TIPS without a stenosis. Assessment: Patent TIPS Plan: Diagnoses and all orders for this visit: Alcoholic cirrhosis of liver without ascites (HCC-CMS) - RAD US DOPPLER VISCERAL LIMITED Other orders - losartan (COZAAR) 50 mg tablet; Take 50 mg by mouth 2 times daily. IR clinic visit and TIPS ultrasound in 6 months. I spent a total of 15 minutes in face to face time with this patient and 10 minutes of that time was spent in disease review, image review, counseling, treatment planning and coordination of care as described in the progress note. Guicho Rosales MD documented in this encounter Plan of Treatment Upcoming Encounters Date Type Department Care Team (Late st Contact Info) Description 01/23/2024 10:00 EDT Office Visit [facility] General Surgery - [facility] [address] [place], [place] [phone] Bon Gutierrez MD [address] [facility], [address] [place] [phone] 09/10/2024 10:00 EDT Appointment Shaina Bergeron [address] [address] documented as of this encounter Visit Diagnoses Diagnosis Alcoholic cirrhosis of liver without ascites (HCC-CMS)- Primary Alcoholic cirrhosis of liver documented in this encounter Historical Medications * This list may reflect changes made after this encounter. Medication Sig Dispensed Refills Start Date End Date losartan (COZAAR) 50 mg tablet Take 50 mg by mouth 2 times daily. 09/12/2018 added in this encounter Care Teams Elevator Repair Mechanic Relationship Specialty Start Date End Date Laurie Wiggins MD PCP - General 05/08/18 03/25/19 documented as of this encounter
--- OUTSIDE RECORDS SUMMARY | 2023-12-21 12:07 | XMS_ITS | Encounter Summary ---
Author Organization [facility] Address [address] [place] [address] Care Team Providers Care Chief Optometry Service Name Role Phone Laurie Wiggins MD Primary Care Provider [phone]- [phone] Katia Blanco Primary Care Provider Reason for Visit * Reason Onset Date Comments Appointment Related 10/03/2018 Encounter Details Date Type Department Care Team (Late st Contact Info) Description 10/03/2018 Telephone [facility] Adult Neurology - [facility] [address] [place] [address] Marianna Walker MD [address] [place] [phone] Appointment Related Social History Tobacco Use Types [...] encounter Miscellaneous Notes * Telephone Encounter - Joel Watkins - 10/10/2018 1051 EDT Reason for Call: Appointment Related Call Detail: I spoke with Alonzo to try and schedule his DFU30 with Dr. Walker, but he said he doesn't drive, and will call us if needed. Closing referral, if patient does call in, please re-open and schedule DFU30 and assign referral. Last visit: 08/21/2018 inpatient Next visit: MIO Watkins 10/10/2018 10:51 * Telephone Encounter - Joel Watkins - 10/03/2018 1538 EDT Reason for Call: Appointment Related Call Detail: I left a message for Alonzo to call and schedule his DFU30 with Dr. Walker. Please assign referral once scheduled. Last visit: 08/24/2018 inpatient Next visit: MIO Watkins 10/03/2018 15:39 documented in this encounter Plan of Treatment Upcoming Encounters Date Type Department Care Team (Late st Contact Info) Description 01/23/2024 10:00 EDT Office Visit [facility] General Surgery - [address] [address] Bon Gutierrez MD [address] [facility], [address] [place] [phone] 09/10/2024 10:00 EDT Appointment Shaina Bergeron [address] [phone] [place], [place] [phone] documented as of this encounter Visit Diagnoses Not on filedocumented in this encounter Care Teams Chief Optometry Service Relationship Specialty Start Date End Date Laurie Wiggins MD PCP - General 05/08/18 03/25/19 Katia Blanco FNP [facility] [place] [address] PCP - General 03/26/19 09/20/22 documented as of this encounter
--- OUTSIDE RECORDS SUMMARY | 2023-12-21 12:07 | XMS_ITS | Encounter Summary ---
Author Organization [facility] Address [address] [place] [address] Care Team Providers Care Residential Service Technician Name Role Phone Laurie Wiggins MD Primary Care Provider +1- [phone] Reason for Visit * Reason Onset Date Comments Appointment Related 01/22/2019 Encounter Details Date Type Department Care Team (Late st Contact Info) Description 01/22/2019 Telephone [facility] Interventional Radiology - [address] [phone] Guicho Rosales MD [address] [place] [address] 1 [place] [address] Appointment Related Social History Tobacco [...] encounter Miscellaneous Notes * Telephone Encounter - Karrie Crespo - 01/22/2019 1414 EDT Patient called to cancel his 01/23 US and OV with Dr. Rosales. Please call back to reschedule. documented in this encounter Plan of Treatment Upcoming Encounters Date Type Department Care Team (Late st Contact Info) Description 01/23/2024 10:00 EDT Office Visit [facility] General Surgery - [address] [phone] Bon Gutierrez MD [address] [place] [address], [address] [place] [phone] 09/10/2024 10:00 EDT Appointment Shaina Bergeron [address] [phone] documented as of this encounter Visit Diagnoses Not on filedocumented in this encounter Care Teams Residential Service Technician Relationship Specialty Start Date End Date Laurie Wiggins MD PCP - General 05/08/18 03/25/19 documented as of this encounter
--- OUTSIDE RECORDS SUMMARY | 2023-12-21 12:07 | XMS_ITS | Encounter Summary ---
Author Organization [facility] Address [address] [place] [address] Care Team Providers Care Digital Media Buyer Name Role Phone Laurie Wiggins MD Primary Care Provider +1- [phone] Encounter Details Date Type Department Care Team (Late st Contact Info) Description 02/21/2019 Orders Only [facility] Interventional Radiology - [address] [address] Guicho Rosales MD [address] [place] [address], [address] [place] [phone] Social History Tobacco Use Types Packs/Day Years [...] Description 01/23/2024 10:00 EDT Office Visit [facility] General Surgery - [address] [phone] Bon Gutierrez MD [address] [facility], [address] [place] [address] 09/10/2024 10:00 EDT Appointment Shaina Bergeron [address] [phone] documented as of this encounter Visit Diagnoses Not on filedocumented in this encounter Care Teams Digital Media Buyer Relationship Specialty Start Date End Date Laurie Wiggins MD PCP - General 05/08/18 03/25/19 documented as of this encounter
--- OUTSIDE RECORDS SUMMARY | 2023-12-21 12:07 | XMS_ITS | Encounter Summary ---
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 occasional falls attributed to this. Patient did not have a loss of consciousness, and did not have trauma to his head. Given that examination does not reveal focal neurological findings, he is not on anticoagulant medication, no evidence of skull fracture, and there are no other risk factors for head injury, CT head is not indicated at this time. Mr. Urbina will be reassessed q4h for the next 24h per hospital falls protocol. P: -- Fall order set / precautions -- Neuro checks q4h for 24h -- Currently no indication for CT Head -- acetaminophen as needed for pain -- Consider X-ray if pain/swelling occurs Adrian Rivas MD Department of Psychiatry [facility] 09/12/2018 6:55 * Sharon Flores RN - 09/12/2018 4876 EDT Post Fall BELEM Note Data: Patient witnessed falling by V Short RN at 0430. . Initial assessment Vital Signs BP: (!) 159/74 Pulse: 65 Heart Rate: 56 BPM Resp: 17 Temp: 37 ??C (98.6 ??F) SpO2: 98 % O2 Flow Rate (L/min): 0 l/min O2 Device: None Post Fall Assessment - head injury factors * Level of Consciousness: Alert Vomiting?: No Orientation Level: Oriented X3 Confusion?: None Worsening Headache?: No Sedating Meds with in last 24 hours?: No Anticoagulant Use?: No Facial Trama?: No Seizure Activity?: No. Dr.Tyler Rivas notified @ 0437. ANC notified @ 0436 . Action: Patient insisted on finishing his shower and dressing. Patient placed on high fall precautions. Fall careplan updated. Patient is not on Anticoagulant/Antiplatelet drugs. Response:Patient was assessed by MD at 0448. Patient immediately stated he had no injury. He statedhe did not hit his head. Sharon Flores RN 09/12/2018 5:11 * Venkata Telles LICSW - 09/11/2018 1417 EDT Social Work Progress Note Intervention/Service: Community referral, Coordination of care and Discharge planning JIMENEZ met with Alonzo today and explained he would be set up for a cab for 10:30am tomorrow to take [facility]. Alonzo will olive picker his medication here. JIMENEZ left a message for [facility] regarding Alonzo letting them know he would follow up with after [facility]. CISCO Guillen * Sonali Mills MD, MD - 09/11/2018 1127 EDT Inpatient Psychiatry Daily Progress Note Date of Service: 09/11/2018 Admit Date: 08/09/2018 Hospital day: LOS: 33 days Legal Status: Legal status: Voluntary Observation Level: Observation / visual check: Routine (Q hour day / rena, Q 1/2 hour night) Locus/Risk of Harm: Current locus of harm: 3 Reason for Admission/Chief Complaint: SI Clinical Update/24-hour Events: Pt doing well this AM. States he slept longer than he usually does this weekend to make up for the reduced sleep earlier in the week so he feels well-rested. Is anxious about the unknown of [email or web address] but feels he can handle it, and feels sad about leaving all the good people here. He has arranged a pass this AM with a former patient to go purchase needed items at [facility]. He denies SI and believes he can positively improve his life. Reports that he has benefited from the CBT workbook andthat he uses generalization in excess, putting himself down when he shouldn't (ie. he isn't a terrible person). I told him that he has been a helpful co-patient to his peers on the unit and is an empathic, caring man with wisdom that benefits others. He shared his concerns about another patient on the unit. Current Facility-Administered Medications: acetaminophen (TYLENOL) tablet 500 mg oral Q6H PRN citalopram (CELEXA) tablet 10 mg oral DAILY lactulose (CHRONULAC) 20 gram/30 mL solution 30 mL oral Q4H PRN lactulose (CHRONULAC) 20 gram/30 mL solution 30 mL oral DAILY losartan (COZAAR) tablet 50 mg oral DAILY pantoprazole (PROTONIX) tablet 40 mg oral DAILY Review of Systems: As above Mental Status Exam: Well-developed, shorter man with scar on face and walking with limp, appears stated age, casually dressed, with appropriate grooming and hygiene. Calm, polite, and cooperative- good eye contact. No abnormal/involuntary movements. Speech unremarkable for rate or volume- able to communicate clearly today- clear and fluent language . Stated mood is good but anxious and affect is congruent. Thoughtprocess is linear with tight associations. Thought content is reality based and future-oriented. Noparanoia, obsessions, or delusions. Denies SI or perceptual disturbances. Patient is alert and oriented, cognition, and memory are grossly intact. Insight is good. Judgement is good. Physical Exam: BP 126/70 (BP Cuff Location: Right arm, Patient Position: Sitting) Pulse 61 Temp 37 ??C (98.6 ??F) (Temporal) Resp 17 Ht 157.5 cm (62) Wt 84.1 kg (185 lb 6.4 oz) SpO2 98% BMI 33.91 kg/m?? Data Review: Labs: No results found for this or any previous visit (from the past 24 hour(s)). Assessment/Formulation: Alonzo Urbina is a 63 y.o. year old man with past h/o depression, polysubstance use disorder liver cirrhosis( s/p TIPS) and duodenal ulcer who presented with severe depression and SI in the contextof several psychosocial stressors including 2nd DUI the day before admission. The patient's presentation is most consistent with the diagnosis of unspecified mood disorder (moderate to severe depression) likely substance induced vs MDD vs adjustment disorder with mixed depressed and anxious mood. Alonzo had a good weekend with full clearing of his expressive aphasia/word- finding difficulty and lethary/low mood state. Slept well. Is appropriately anxious about next steps but without SI or pessimism. Alonzo Urbina meets criteria for acute level of care. Diagnostic Impression w/ Differential Diagnosis Psychiatric Diagnoses (including Personality Traits/Disorders): unspecified depression r/o MDD vs substance induced vs adjustment disorder, substance use disorder- active both alcohol and cocaine., r/o cluster B traits. Other Medical Conditions: Hepatitis C, cirrhosis s/p TIPS, duodenal ulcer s/p embolization, s/p back surgery( scoliosis Plan: - Pass today w/ friend x 4 hours to prepare for discharge Aphasia: Continue Celexa at 10 mg Blood level for citalopram (mostly will reflect dose of 20mg)pending later this week. Substance use disorder: - Encourage group Depression/Anxiety -Continue reduced dose of Citalopram at 10 mg daily ?? 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 Duodenal Ulcer (s/p GI bleed requiring transfusion June 2018, s/p embolization of ulcer blood supply) Avoid NSAIDs Protonix 40mg daily CBC/HCT- no acute change ?? HTN: Losartan 50 mg daily Headache: resolved Hyperglycemia: resolved. HbA1c 5.7 Tylenol prn Discharge Plan: Discharge tomorrow AM; meds being sent to [facility] today Sonali Mills MD 09/11/2018 11:27 Psychiatry Attending Attending Attestation: I saw and evaluated the patient on 09/08/18. Treatment plan reviewed with the patient and team. Total time spent directly with patient was 35 minutes of which 20 minutes was spent in counseling (re:symptoms and treatment plan as in note above) and/or in coordination of care with the multidisciplinary team. SONALI MILLS MD Attending Psychiatrist [facility] Pager [phone] * Laura Solo MD, MD - 09/10/2018 1308 EDT 09/10/2018 ATTENDING LEAF CONDITIONER NOTE: PROBLEM: Suicidal ideation HOSPITAL DAY: LOS: 32 days INTERIM HISTORY: Events of past 24h reviewed with nursing staff and chart reviewed. Angry at activity therapist and Dr. Brewer re: discussion about boundaries in groups with another patient (MH). Slept 3 intermittent hours. [facility] discharge planned for Tuesday. Looking forward to this. W[facility] with a friend to make purchases to be there. Current Facility-Administered Medications: acetaminophen (TYLENOL) tablet 500 mg oral Q6H PRN citalopram (CELEXA) tablet 10 mg oral DAILY lactulose (CHRONULAC) 20 gram/30 mL solution 30 mL oral Q4H PRN lactulose (CHRONULAC) 20 gram/30 mL solution 30 mL oral DAILY losartan (COZAAR) tablet 50 mg oral DAILY pantoprazole (PROTONIX) tablet 40 mg oral DAILY EXAM: BP (!) 152/90 (BP Cuff Location: Left arm, Patient Position: Sitting) Comment: Notified RN Pulse 57 Temp 36.9 ??C (98.4 ??F) (Temporal) Resp 16 Ht 157.5 cm (62) Wt 84.1 kg (185 lb 6.4 oz) SpO2 98% BMI 33.91 kg/m?? MSE: In unit, speaking with others. Mood is euthymic, affect congruent. No SI. Linear thought processes. ASSESSMENT: Diagnosis: Depression and polysubstance use disorder Progress: Stable. No acute events over the past day. PLAN: Unchanged, refer to orders and multidisciplinary team treatment plan. Laura Solo MD Attending Psychiatrist day habilitation supervisor * Laura Solo MD, MD - 09/09/2018 0713 EDT 09/09/2018 ATTENDING LEAF CONDITIONER NOTE: PROBLEM: Suicidal ideation HOSPITAL DAY: LOS: 31 days INTERIM HISTORY: Events of past 24h reviewed with nursing staff and chart reviewed. Social. In milieu. [facility] discharge planned for Tuesday. He is looking forward to that. Slept 6 hours. Current Facility-Administered Medications: acetaminophen (TYLENOL) tablet 500 mg oral Q6H PRN citalopram (CELEXA) tablet 10 mg oral DAILY lactulose (CHRONULAC) 20 gram/30 mL solution 30 mL oral Q4H PRN lactulose (CHRONULAC) 20 gram/30 mL solution 30 mL oral DAILY losartan (COZAAR) tablet 50 mg oral DAILY pantoprazole (PROTONIX) tablet 40 mg oral DAILY EXAM: BP 118/59 (Patient Position: Sitting) Pulse 63 Temp 37.1 ??C (98.8 ??F) (Temporal) Resp 18 Ht 157.5 cm (62) Wt 84.1 kg (185 lb 6.4 oz) SpO2 98% BMI 33.91 kg/m?? MSE: In bed, resting. Politely declines to speak with me further, wants to sleep more. Mood is euthymic,affect congruent. No SI. ASSESSMENT: Diagnosis: Depression and polysubstance use disorder Progress: Stable. No acute events over the past day. PLAN: Unchanged, refer to orders and multidisciplinary team treatment plan. Laura Solo MD Attending Psychiatrist day habilitation supervisor * Venkata Telles LICSW - 09/08/2018 1415 EDT Social Work Progress Note Intervention/Service: Community referral, Coordination of care and Discharge planning JIMENEZ met with Alonzo today and talked about discharge on 09/12/18. JIMENEZ explained Alonzo would need to discharge by 11am on Tuesday to get to his 1pm intake at [facility]. Alonzo will complete [facility] with a plan to follow up with [facility] upon discharge. CISCO Guillen * Sonali Mills MD, MD - 09/08/2018 0845 EDT Inpatient Psychiatry Daily Progress Note Date of Service: 09/08/2018 Admit Date: 08/09/2018 Hospital day: LOS: 30 days Legal Status: Legal status: Voluntary Observation Level: Observation / visual check: Routine (Q hour day / rena, Q 1/2 hour night) Locus/Risk of Harm: Current locus of harm: 3 Reason for Admission/Chief Complaint: SI Clinical Update/24-hour Events: Events of past 24 hours reviewed with multidisciplinary team and chart review. No significant events. Slept 1 hour/24- endorsed feeling tired this morning appetite - good. No SE endorsed Attending group. Met .with Alonzo this AM with professional nursing assistant in the room- he invited the student to stay during themeeting. Discussed his course while he has been here- was able to state that he knows he is a good person but sometimes finds it hard to believe people care about him..Initially stated he did not want to keepin touch with the friends he made here( due to feeling rejected during a phone interaction with a patient who had been discharged earlier)- however we explored the meaning of social connections to him and he decided to think in more depth about this . He Discussed his intent to continue working on the depression workbook. He states that he believes that much of his difficulty with speech may have been because he was distressed by (the loss of) everyone I was close with left - including patients and MS3. He acknowledge the possibility of higherdose of citalopram contributing to his difficulty with speech.- I believe both are plausible explanations. I redirected him to focus on the fact that he has been able to mostly overcome his speech issue for now- and should he face another episode like this he can feel more hopeful( he had been verydistraught at the time this episode began) knowing that he has been able to deal with it. Asked me to come by and say bye at the end of the day. Current Facility-Administered Medications: acetaminophen (TYLENOL) tablet 500 mg oral Q6H PRN capsaicin (CAPZASIN-HP) 0.1 % cream topical QID PRN citalopram (CELEXA) tablet 10 mg oral DAILY cyanocobalamin (VITAMIN B-12) tablet 1,000 mcg oral DAILY docusate sodium (COLACE) capsule 100 mg oral Daily PRN lactulose (CHRONULAC) 20 gram/30 mL solution 30 mL oral Q4H PRN lactulose (CHRONULAC) 20 gram/30 mL solution 30 mL oral DAILY losartan (COZAAR) tablet 50 mg oral DAILY magnesium hydroxide (MILK OF MAGNESIA) 400 mg/5 mL suspension 30 mL oral Daily PRN multivitamin (FLINTSTONES) chewable tablet 2 tablet oral DAILY pantoprazole (PROTONIX) tablet 40 mg oral BID senna (SENOKOT) tablet 1 tablet oral AT BEDTIME PRN thiamine (VITAMIN B1) tablet 100 mg oral DAILY Review of Systems: As above Mental Status Exam: Well-developed, shorter man with scar on face and walking with limp, appears stated age, casually dressed, with appropriate grooming and hygiene. Calm, polite, and cooperative- good eye contact. Somegeneralized psychomotor slowing but no abnormal/involuntary movements. Speech unremarkable for rateor volume- able to communicate clearly today- clear expressive, receptive and pragmatic language . Stated mood is good, and affect is congruent, slightly dysthymic, less constricted and blunted. Thought process is linear with tight associations. Thought content is reality based and future-oriented. No overt paranoia, obsessions, or delusions. Denies SI or perceptual disturbances. Patient is alert and orientation, cognition, and memory are grossly intact. Insight appears fair to good. Judgement is good. Physical Exam: BP 123/59 (BP Cuff Location: Left arm, Patient Position: Sitting) Pulse 57 Temp 36.9 ??C (98.4 ??F) (Temporal) Resp 18 Ht 157.5 cm (62) Wt 84.1 kg (185 lb 6.4 oz) SpO2 98% BMI 33.91 kg/m?? Data Review: Labs: No results found for this or any previous visit (from the past 24 hour(s)). Assessment/Formulation: Alonzo Urbina is a 63 y.o. year old man with past h/o depression, polysubstance use disorder liver cirrhosis( s/p TIPS) and duodenal ulcer who presented with severe depression and SI in the contextof several psychosocial stressors including 2nd DUI the day before admission. The patient's presentation is most consistent with the diagnosis of unspecified mood disorder (moderate to severe depression) likely substance induced vs MDD vs adjustment disorder with mixed depressed and anxious mood. Alonzo continues to sustain improvement in speech and language functioning. Today he was also able to discuss his feelings of loss and rejection without being overwhelmed. He reiterated his resolve tocontinue working on the depression workbook and has even bought one for himself. He appears to be approaching a level of functioning he had before the speech disability/aphasia. I suspect he overestimates how well he is doing and then feeling disappointed in himself when he has a set back, has considerable difficulty dealing with his feelings . I gently pointed this out to him and he seemed cognizant of this. I saw him later in the day and his affect was considerably brighter as he had learned that he will have a bed at [facility] early next week. He continues to benefit from this hospitalization in the interim both for medication management and for learning and practicing new coping skills. Alonzo Urbina meets criteria for acute level of care. Diagnostic Impression w/ Differential Diagnosis Psychiatric Diagnoses (including Personality Traits/Disorders): unspecified depression r/o MDD vs substance induced vs adjustment disorder, substance use disorder- active both alcohol and cocaine., r/o cluster B traits. Other Medical Conditions: Hepatitis C, cirrhosis s/p TIPS, duodenal ulcer s/p embolization, s/p back surgery( scoliosis Plan: - Encourage self care thorough attention to ADLs and exercise as tolerated - Encourage groups Aphasia: Continue Celexa to 10 mg Blood level for citalopram ordered. Substance use disorder: - Encourage group - Discussion of acamprosate deferred due to sedation and desire to minimize the # of medications heis on Depression/Anxiety -Continue Reduced dose of Citalopram at 10 mg daily ?? 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 Duodenal Ulcer (s/p GI bleed requiring transfusion June 2018, s/p embolization of ulcer blood supply) Avoid NSAIDs Protonix 40mg BID CBC/HCT- no acute change ?? HTN: Losartan 50 mg daily Headache: resolved Hyperglycemia: resolved. HbA1c 5.7 Tylenol prn Discharge Plan: Discharge planning per multidisciplinary team rounds- awaiting placement at [facility]. NORBERTO Miranda 09/08/2018 8:45 PGY2 Residential Driver Attending Attestation: I saw and evaluated the patient on 09/08/18. Treatment plan reviewed with the patient and team. I agree with (and/or have edited in blue text) the findings and plan of care as documented in the resident's/PA/medical student's note. Total time spent directly with patient was 25 minutes of which 15 minutes was spent in counseling (re:symptoms and treatment plan as in note above) and/or in coordination of care with the multidisciplinary team. SONALI MILLS MD Attending Psychiatrist [facility] Pager [phone] * Sonali Mills MD, MD - 09/07/2018 0916 EDT Inpatient Psychiatry Daily Progress Note Date of Service: 09/07/2018 Admit Date: 08/09/2018 Hospital day: LOS: 29 days Legal Status: Legal status: Voluntary Observation Level: Observation / visual check: Routine (Q hour day / rena, Q 1/2 hour night) Locus/Risk of Harm: Current locus of harm: 3 Reason for Admission/Chief Complaint: SI Clinical Update/24-hour Events: Events of past 24 hours reviewed with multidisciplinary team and chart review. No significant events. Slept 5.5 hours. HbA1c: 5.7 Per RN report: hypersexual on the unit- making borderline inappropriate jokes. Endorses feeling clear and having less difficulty speaking. Described mood as good-8/1. Endorses grieving that many of his friends are leaving. Does acknowledge that he is often hard on himself and is amenable to working on the cognitive distortions worksheet again this afternoon with MSKhanh Trimble. Talked about GI consult and seems little irritated at first at the advice given by GI that serum ammonia level don't need to be monitored. We have a disagreement - however is open to discussion andexpresses understanding and satisfaction once I recount my discussion with GI and that ammonia levels don't seem to correlate with mental status. Also understands that lactulose helps him eliminate other toxins as well as ammonia through faeces. His mental status changes could also be due to neurologic manifestations of long-standing EtOH/substance use. - Hepatic encephalopathy unlikely cause of word finding difficulties - Avoid benzodiazepines - Agree with decreasing medications when able ?? Serum ammonia: Serum ammonia can be elevated for multiple reasons and its levels are variable, however it is inconsistently elevated in patients with hepatic encephalopathy and therefore is not a reliable way to evaluate for this. The serum test can also be influenced by other factors such as fist clenching, tourniquet use, and the sample not being placed on ice Current Facility-Administered Medications: acetaminophen (TYLENOL) tablet 500 mg oral Q6H PRN capsaicin (CAPZASIN-HP) 0.1 % cream topical QID PRN citalopram (CELEXA) tablet 10 mg oral DAILY cyanocobalamin (VITAMIN B-12) tablet 1,000 mcg oral DAILY docusate sodium (COLACE) capsule 100 mg oral Daily PRN lactulose (CHRONULAC) 20 gram/30 mL solution 30 mL oral Q4H PRN lactulose (CHRONULAC) 20 gram/30 mL solution 30 mL oral DAILY losartan (COZAAR) tablet 50 mg oral DAILY magnesium hydroxide (MILK OF MAGNESIA) 400 mg/5 mL suspension 30 mL oral Daily PRN multivitamin (FLINTSTONES) chewable tablet 2 tablet oral DAILY pantoprazole (PROTONIX) tablet 40 mg oral BID senna (SENOKOT) tablet 1 tablet oral AT BEDTIME PRN thiamine (VITAMIN B1) tablet 100 mg oral DAILY Review of Systems: As above Mental Status Exam: Well-developed, shorter man with scar on face and walking with limp, appears stated age, casually dressed, with appropriate grooming and hygiene. Calm, polite, and cooperative- good eye contact. Somegeneralized psychomotor slowing but no abnormal/involuntary movements. Speech unremarkable for rateor volume- continues to have difficulty finding words or expressing his thoughts at times and uses word approximations/substitutions. Stated mood is anxious, and affect is congruent, anxious and dysthymic, more constricted than before and blunted. Thought process is linear with tight associations. Thought content is reality based though not fully future-oriented. No overt paranoia, obsessions, or delusions. Denies SI or perceptual disturbances. Patient is alert and orientation, cognition, andmemory are grossly intact. Insight appears fair to good. Judgement is good. Physical Exam: BP 123/59 (BP Cuff Location: Left arm, Patient Position: Sitting) Pulse 53 Temp 36.9 ??C (98.4 ??F) (Temporal) Resp 18 Ht 157.5 cm (62) Wt 84.1 kg (185 lb 6.4 oz) SpO2 98% BMI 33.91 kg/m?? Data Review: Labs: Results for orders placed or performed during the hospital encounter of 08/09/18 (from the past 24 hour(s)) BUN Collection Time: 09/06/18 9:45 Result Value Ref Range BUN 18 10 - 26 mg/dl CREATININE Collection Time: 09/06/18 9:45 Result Value Ref Range Creatinine 0.76 0.66 - 1.25 mg/dl GFR, Calculated 96 >60 ml/min/1.73m2 AMMONIA Collection Time: 09/06/18 9:45 Result Value Ref Range Ammonia 88 (H) <34 umol/L GLUCOSE, GLUCOMETER Collection Time: 09/06/18 16:53 Result Value Ref Range Glucose, Fingerstick 212 (H) 70 - 100 mg/dl Parts Technician ID [id number] HEMOGLOBIN A1C Collection Time: 09/07/18 6:44 Result Value Ref Range Hemoglobin A1C 5.7 % Est Avg Glucose 117 mg/dl Assessment/Formulation: Alonzo Urbina is a 63 y.o. year old man with past h/o depression, polysubstance use disorder liver cirrhosis( s/p TIPS) and duodenal ulcer who presented with severe depression and SI in the contextof several psychosocial stressors including 2nd DUI the day before admission. The patient's presentation is most consistent with the diagnosis of unspecified mood disorder (moderate to severe depression) likely substance induced vs MDD vs adjustment disorder with mixed depressed and anxious mood. Pt's word-finding difficulty could be due to a combination of Celexa and Protonix, as they interactmetabolically and pt could be sedated from one or both of them. Celexa can cause word-finding and memory difficulty even at therapeutic doses. We have a level sent off and have reduced the dose of Celexa. Pt is better today. Mood is fair: misses some patients who were discharged and reality of needing to spend time in residential post- [facility] is kicking in. Alonzo Urbina meets criteria for acute level of care. Diagnostic Impression w/ Differential Diagnosis Psychiatric Diagnoses (including Personality Traits/Disorders): unspecified depression r/o MDD vs substance induced vs adjustment disorder, substance use disorder- active both alcohol and cocaine., r/o cluster B traits. Other Medical Conditions: Hepatitis C, cirrhosis s/p TIPS, duodenal ulcer s/p embolization, s/p back surgery( scoliosis Plan: - Encourage self care thorough attention to ADLs and exercise as tolerated - Encourage groups Aphasia: Comntinue Celexa to 10 mg Blood level for citalopram pending Hyperglycemia :/diziness Obtain HbA1c. Substance use disorder: - Encourage group - Pt declined Acamprosate trial Depression/Anxiety - Reduce Citalopram to 10 mg daily ?? 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 Duodenal Ulcer (s/p GI bleed requiring transfusion June 2018, s/p embolization of ulcer blood supply) Avoid NSAIDs Reduce Protonix to 40mg daily given amount of time on higher dose (and interaction w/ Citalopram) CBC/HCT- no acute change ?? HTN: Losartan 50 mg daily Headache: resolved Tylenol prn Discharge Plan: Discharge planning per multidisciplinary team rounds- awaiting placement at [facility]. NORBERTO Miranda 09/07/2018 9:16 PGY2 Residential Driver Attending Attestation: I saw and evaluated the patient today. Treatment plan reviewed with the patient and team. I agree with (and/or have edited in blue text) the findings and plan of care as documented in the resident's/PA/medical student's note. Total time spent directly with patient was 35 minutes of which 20 minuteswas spent in counseling (re:symptoms and treatment plan as in note above) and/or in coordination ofcare with the multidisciplinary team. SONALI MILLS MD Attending Psychiatrist [facility] Pager [phone] * Sonali Mills MD, MD - 09/06/2018 1110 EDT Inpatient Psychiatry Daily Progress Note Date of Service: 09/06/2018 Admit Date: 08/09/2018 Hospital day: LOS: 28 days Legal Status: Legal status: Voluntary Observation Level: Observation / visual check: Q 15 minutes (frequent) Locus/Risk of Harm: Current locus of harm: 3 Reason for Admission/Chief Complaint: SI Clinical Update/24-hour Events: Events of past 24 hours reviewed with multidisciplinary team and chart review. No significant events. Had an episode of tiredness and dizziness -Reports his head got heavy and he felt unsteady on his feet - similar incidents have happened numerous times when he was drinking but also at other times inthe past- when he found out that his social security was being taken away. When working at [employer] did happen when it was very busy and stressful I.e. In the context of anxiety. Continues to endorse frustration about ongoing difficulty with speech. Also endorses hope that he will be able to be discharged to [facility] despite recent developments. Did discuss code status and endorses wanting to be DNR DNI - was able to state that this is not because he does not want to live but because he does not want to be a vegetable, He does not have a family and does not want to be a burden on anyone. Wants comfort measures only.- Will write a new ADR with JIMENEZ Crespo tomorrow. Alonzo also asked for JIMENEZ to provide list of psychiatrist in [facility]- trauma focused therapy . GI consult placed to r/o hepatic encephalopathy/cause for current speech difficulty. Current Facility-Administered Medications: acetaminophen (TYLENOL) tablet 500 mg oral Q6H PRN capsaicin (CAPZASIN-HP) 0.1 % cream topical QID PRN citalopram (CELEXA) tablet 10 mg oral DAILY cyanocobalamin (VITAMIN B-12) tablet 1,000 mcg oral DAILY docusate sodium (COLACE) capsule 100 mg oral Daily PRN lactulose (CHRONULAC) 20 gram/30 mL solution 30 mL oral Q4H PRN lactulose (CHRONULAC) 20 gram/30 mL solution 30 mL oral DAILY losartan (COZAAR) tablet 50 mg oral DAILY magnesium hydroxide (MILK OF MAGNESIA) 400 mg/5 mL suspension 30 mL oral Daily PRN multivitamin (FLINTSTONES) chewable tablet 2 tablet oral DAILY pantoprazole (PROTONIX) tablet 40 mg oral BID senna (SENOKOT) tablet 1 tablet oral AT BEDTIME PRN thiamine (VITAMIN B1) tablet 100 mg oral DAILY Review of Systems: As above Mental Status Exam: Well-developed, shorter man with scar on face and walking with limp, appears stated age, casually dressed, with appropriate grooming and hygiene. Calm, polite, and cooperative- good eye contact. Somegeneralized psychomotor slowing but no abnormal/involuntary movements. Speech unremarkable for rateor volume- continues to have difficulty finding words or expressing his thoughts at times and uses word approximations/substitutions. Stated mood is anxious, and affect is congruent, anxious and dysthymic, more constricted than before and blunted. Thought process is linear with tight associations. Thought content is reality based though not fully future-oriented. No overt paranoia, obsessions, or delusions. Denies SI or perceptual disturbances. Patient is alert and orientation, cognition, andmemory are grossly intact. Insight appears fair to good. Judgement is good. Physical Exam: BP (!) 142/66 (BP Cuff Location: Left arm, Patient Position: Sitting) Comment: Reported to RN Pulse 53 Temp 36.9 ??C (98.4 ??F) (Temporal) Resp 18 Ht 157.5 cm (62) Wt 84.1 kg (185 lb 6.4 oz) SpO2 99% BMI 33.91 kg/m?? Data Review: Labs: Results for orders placed or performed during the hospital encounter of 08/09/18 (from the past 24 hour(s)) BUN Collection Time: 09/06/18 9:45 Result Value Ref Range BUN 18 10 - 26 mg/dl CREATININE Collection Time: 09/06/18 9:45 Result Value Ref Range Creatinine 0.76 0.66 - 1.25 mg/dl GFR, Calculated 96 >60 ml/min/1.73m2 AMMONIA Collection Time: 09/06/18 9:45 Result Value Ref Range Ammonia 88 (H) <34 umol/L Assessment/Formulation: Alonzo Urbina is a 63 y.o. year old man with past h/o depression, polysubstance use disorder liver cirrhosis( s/p TIPS) and duodenal ulcer who presented with severe depression and SI in the contextof several psychosocial stressors including 2nd DUI the day before admission. The patient's presentation is most consistent with the diagnosis of unspecified mood disorder (moderate to severe depression) likely substance induced vs MDD vs adjustment disorder with mixed depressed and anxious mood. Today Alonzo presents with anxious and depressed mood and an affect that is dimmer and more constricted than before- he also expresses anxiety that the current emergence of aphasia may hinder his placement at [facility]- However is hopeful that since we have another week to resolve this he will still be able to be plaved there. He does endorse episodes of dizziness when stressed and seems to have had another episode today. His vitals following this episode were normal and his POCT glucose was 212 mg/dl . We will get HbA1c and will monitor blood glucose levels if this is concerning- howeverhyperglycemia of 212 is unlikely to have caused sudden dizziness and/ or weakness. Given the downward progression of his mood and the newly developed aphasia he will continue to benefit from hospitalization for safety, stabilization, diagnostic clarification- randall as regards to aphasia, medication management, development of coping skills and establishment of further outpatient resources. Alonzo Urbina meets criteria for acute level of care. Diagnostic Impression w/ Differential Diagnosis Psychiatric Diagnoses (including Personality Traits/Disorders): unspecified depression r/o MDD vs substance induced vs adjustment disorder, substance use disorder- active both alcohol and cocaine., r/o cluster B traits. Other Medical Conditions: Hepatitis C, cirrhosis s/p TIPS, duodenal ulcer s/p embolization, s/p back surgery( scoliosis Plan: - Encourage self care thorough attention to ADLs and exercise as tolerated - Encourage groups Aphasia: Comntinue Celexa to 10 mg Blood level for citalopram ordered. Hyperglycemia :/diziness Obtain HbA1c. Substance use disorder: - Encourage group - Discussion of acamprosate deferred due to sedation Depression/Anxiety - Reduce Citalopram to 20 mg daily ?? 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 Duodenal Ulcer (s/p GI bleed requiring transfusion June 2018, s/p embolization of ulcer blood supply) Avoid NSAIDs Protonix 40mg BID CBC/HCT- no acute change ?? HTN: Losartan 50 mg daily Headache: resolved Tylenol prn Discharge Plan: Discharge planning per multidisciplinary team rounds- awaiting placement at [facility]. NORBERTO Miranda 09/06/2018 11:10 PGY2 Residential Driver Attending Attestation: I saw and evaluated the patient today. Treatment plan reviewed with the patient and team. I agree with (and/or have edited in blue text) the findings and plan of care as documented in the resident's/PA/medical student's note. Total time spent directly with patient was 35 minutes of which 20 minuteswas spent in counseling (re:symptoms and treatment plan as in note above) and/or in coordination ofcare with the multidisciplinary team. SONALI MILLS MD Attending Psychiatrist [facility] Pager [phone] * Venkata Telles LICSW - 09/06/2018 0837 EDT Social Work Progress Note Intervention/Service: Community referral, Coordination of care and Discharge planning SW met with Alonzo, Dr. Mills, and Dr. Sifuentes today who is frustrated and nervous about his current condition. He was confused at the end of last week and while it has improved he is still latent at times. Dr. Mills suggested it might be from his antidepressant, as a result the team is going to reduce his antidepressant. JIMENEZ spoke with [facility] and Alonzo is on the wait list which is likely a week out. CISCO Guillen * Sonali Mills MD, MD - 09/05/2018 2209 EDT Inpatient Psychiatry Daily Progress Note Date of Service: 09/05/2018 Admit Date: 08/09/2018 Hospital day: LOS: 27 days Legal Status: Legal status: Voluntary Observation Level: Observation / visual check: Q 15 minutes (frequent) Locus/Risk of Harm: Current locus of harm: 3 Reason for Admission/Chief Complaint: SI Clinical Update/24-hour Events: Events of past 24 hours reviewed with multidisciplinary team and chart review. No significant events. Pt upset that his speech is still not fluent. Notes that it was on Tuesday, and he was able to sing Karaoke. Cannot understand why it is fluctuating. Also notes low energy and increased sleeping. Has been taking lactulose daily and having multiple stools per day. We discussed the possibility that Celexa (or less likely Protonix) could be higher level due to cirrhosis and we can lower the dose tomorrow to test this out. Ready to go to rehab when bed comes up but is enjoying interactions on the floor. Current Facility-Administered Medications: acetaminophen (TYLENOL) tablet 500 mg oral Q6H PRN capsaicin (CAPZASIN-HP) 0.1 % cream topical QID PRN [START ON 09/06/2018] citalopram (CELEXA) tablet 10 mg oral DAILY cyanocobalamin (VITAMIN B-12) tablet 1,000 mcg oral DAILY docusate sodium (COLACE) capsule 100 mg oral Daily PRN lactulose (CHRONULAC) 20 gram/30 mL solution 30 mL oral Q4H PRN lactulose (CHRONULAC) 20 gram/30 mL solution 30 mL oral DAILY losartan (COZAAR) tablet 50 mg oral DAILY magnesium hydroxide (MILK OF MAGNESIA) 400 mg/5 mL suspension 30 mL oral Daily PRN multivitamin (FLINTSTONES) chewable tablet 2 tablet oral DAILY pantoprazole (PROTONIX) tablet 40 mg oral BID senna (SENOKOT) tablet 1 tablet oral AT BEDTIME PRN thiamine (VITAMIN B1) tablet 100 mg oral DAILY Review of Systems: As above Mental Status Exam: Older man w/ limp, well-groomed. Speech is slightly slurred. Some loss of fluency with filler wordsand some word-approximations (such as Alheimers-- w/o the z--). Affect euthymic, mood is good. TP is coherent and GD. TC is without SI but w/ some anxiety about future (going to residential, etc.). Insight is good. Judgement is good. Physical Exam: BP 138/63 (BP Cuff Location: Right arm, Patient Position: Supine) Pulse 60 Temp 37.2 ??C (99 ??F) (Temporal) Resp 14 Ht 157.5 cm (62) Wt 84.1 kg (185 lb 6.4 oz) SpO2 96% BMI 33.91 kg/m?? Data Review: Labs: No results found for this or any previous visit (from the past 24 hour(s)). Assessment/Formulation: Alonzo Urbina is a 63 y.o. year old man with past h/o depression, polysubstance use disorder liver cirrhosis( s/p TIPS) and duodenal ulcer who presented with severe depression and SI in the contextof several psychosocial stressors including 2nd DUI the day before admission. The patient's presentation is most consistent with the diagnosis of unspecified mood disorder (moderate to severe depression) likely substance induced vs MDD vs adjustment disorder with mixed depressed and anxious mood. Pt continues with poor verbal fluency (speech aphasia) and some sedation, slurring. Could be sedation from new meds (Celexa) which, at high dose, can cause word-finding difficulty. I asked neurology if pt would need a f/u imaging, but imaging done is good for new or old strokes so no further imaging is necessary. Pt without confusion and overall better than last Tuesday. Although we did not speak about his code status today due to my oversight, pt has consistently had insight and been engaged in his treatment. He is no longer distraught and actively suicidal. He is realistic, future-oriented, and aware of his medical conditions. I believe that his request to be returned to DNR/DNI of the resident yesterday be taken as sincere and not influenced by his depression now that it is improved. I will discuss with him first thing in the morning. Alonzo Urbina meets criteria for acute level of care. Diagnostic Impression w/ Differential Diagnosis Psychiatric Diagnoses (including Personality Traits/Disorders): unspecified depression r/o MDD vs substance induced vs adjustment disorder, substance use disorder- active both alcohol and cocaine., r/o cluster B traits. Other Medical Conditions: Hepatitis C, cirrhosis s/p TIPS, duodenal ulcer s/p embolization, s/p back surgery( scoliosis Plan: - Encourage self care thorough attention to ADLs and exercise as tolerated - Encourage groups Aphasia: Reduce Celexa to 10mg tomorrow Substance use disorder: - Encourage group - Discussion of acamprosate deferred due to sedation Depression/Anxiety - Reduce Citalopram to 20 mg daily ?? 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 Duodenal Ulcer (s/p GI bleed requiring transfusion June 2018, s/p embolization of ulcer blood supply) Avoid NSAIDs Protonix 40mg BID CBC/HCT- no acute change ?? HTN: Losartan 50 mg daily Headache: resolved Tylenol prn Discharge Plan: Discharge planning per multidisciplinary team rounds- awaiting placement at [facility]. Sonali Mills MD 09/05/2018 22:09 Attending Attestation: I saw and evaluated the patient today. Treatment plan reviewed with the patient and team. Total time spent directly with patient was 35 minutes of which 20 minutes was spent in counseling (re:symptoms and treatment plan as in note above) and/or in coordination of care with the multidisciplinary team. SONALI MILLS MD Attending Psychiatrist [facility] Pager [phone] * Gabrielle Lynch MD, MD - 09/04/2018 1837 EDT 09/04/2018 ATTENDING LEAF CONDITIONER NOTE: CHIEF COMPLAINT: Depression he has been social with others and medication compliant. HOSPITAL DAY: LOS: 26 days INTERIM HISTORY: Events of past 24h reviewed with nursing staff and chart reviewed. Slept 5 hours and past 24 hours. Increased episodes of loose stool following increase dose of lactulose. Speech hadbeen more spontaneous until this morning. He declined morning scheduled lactulose due to concern ofloose stool. He had intermittent subjective feelings of speech difficulty throughout the morning. He had no other neurological findings. He reports feeling as though his head becomes heavy prior tospeech difficulty rising. He reports feeling sad, frustrated and scared by his changing speech patterns. He was engaging in a discussion on the actions of his liver and how fluctuating changes in liver functioning and use of lactulose may be impacting his mental state and overall anxiety. He denied SI. Current Facility-Administered Medications Medication Dose Route Frequency Provider Last Rate Last Dose ??? acetaminophen (TYLENOL) tablet 500 mg 500 mg oral Q6H PRN Katina Garzon MD 500 mg at 08/27/18 2156 ??? capsaicin (CAPZASIN-HP) 0.1 % cream topical QID PRN Sari Hahn MD ??? citalopram (CELEXA) tablet 20 mg 20 mg oral DAILY Sonali Mills MD 20 mg at 09/04/18 0847 ??? docusate sodium (COLACE) capsule 100 mg 100 mg oral Daily PRN Sania Sifuentes MBBS ??? lactulose (CHRONULAC) 20 gram/30 mL solution 30 mL 30 mL oral Q4H PRN Katina Garzon MD 30 mL at 09/04/18 1438 ??? lactulose (CHRONULAC) 20 gram/30 mL solution 30 mL 30 mL oral DAILY Sania Sifuentes MBBS 30 mL at 09/03/18 0840 ??? losartan (COZAAR) tablet 50 mg 50 mg oral DAILY Sonali Mills MD 50 mg at 09/04/18 0847 ??? magnesium hydroxide (MILK OF MAGNESIA) 400 mg/5 mL suspension 30 mL 30 mL oral Daily PRN Sania Sifuentes MBBS ??? multivitamin (FLINTSTONES) chewable tablet 2 tablet 2 Tab oral DAILY Zeinab Choudhary MD 2 Tab at 09/03/18 2020 ??? pantoprazole (PROTONIX) tablet 40 mg 40 mg oral BID Sonali Mills MD 40 mg at 09/04/18 0848 ??? senna (SENOKOT) tablet 1 tablet 1 Tab oral AT BEDTIME PRN Sania Sifuentes MBBS EXAM: BP 140/64 (Patient Position: Sitting) Comment: RN Mini notified Pulse 63 Temp 37.3 ??C (99.1 ??F) (Temporal) Resp 18 Ht 157.5 cm (62) Wt 84.1 kg (185 lb 6.4 oz) SpO2 97% BMI 33.91 kg/m?? MSE: Casually dressed gentleman ambulating around his room. He appeared anxious and endorsed elevated anxiety due to concerns of changing speech pattern. He had fluctuating level of word finding difficulties which increased as his anxiety increased during the interview. Articulation was intact. Thought processing was intact. He was alert and oriented. Attention/concentration was intact. ASSESSMENT: Diagnosis: Major depressive disorder, recent hepatic encephalopathy. Progress: Episodic changes in speech appear to correlate strongly with fluctuating levels of anxiety. Today's exam was less indicative of focal neurological findings, more likely a combination of mild mental status changes related to hepatic changes which were further complicated by heightened anxiety. PLAN: Unchanged, refer to orders and multidisciplinary team treatment plan. Encourage patient to remain adherent with scheduled lactulose. Follow-up on hepatic labs in the morning Gabrielle Lynch MD Attending Psychiatrist day habilitation supervisor * Adrian Rivas MD - 09/04/2018 1711 EDT Brief Update Note RN called me to make me aware that the patient wanted to confirm that he is DNR/DNI. He is not currently listed as such, and so the patient made the RN aware of paperwork to confirm this status. The paperwork was obtained and does indeed say that he is DNR/DNI -- contrary to his currently listed code status on our EMR. That paper record was dated 2012. The patient had a recent admission to Neurology (07/2018) and the electronic code status also indicates to withhold treatment. However, the documented code status on this admission was Full Code, and the H&P note indicates that an Advanced Directive was being sought. It is unclear whether there was a discussion about this on admission, but the orders are currently in as Full Code. This situation is complicated by the fact that the patient is admitted with Depression and has alsohad encephalopathy during his admission. A full capacity evaluation is needed to determine if his desired code status is Full Code or Limited Treatment, and whether his current depression and encephalopathy challenge these stated desires. Until a capacity evaluation can be completed, the orders in the EMR (Full Code) stand and should befollowed. A capacity evaluation will take place as quickly as possible. Adrian Rivas MD PGY1 - Psychiatry Pager [phone] * Gera Beckman MD, MD - 09/03/2018 0932 EDT 09/03/2018 ATTENDING LEAF CONDITIONER NOTE: CHIEF COMPLAINT: Suicidality HOSPITAL DAY: LOS: 25 days INTERIM HISTORY: Events of past 24h reviewed with nursing staff and chart reviewed. Voice returning. Sense of humor is coming back. Enjoying being with others. My encephalitis is not growing. Current Facility-Administered Medications Medication Dose Route Frequency Provider Last Rate Last Dose ??? acetaminophen (TYLENOL) tablet 500 mg 500 mg oral Q6H PRN Katina Garzon MD 500 mg at 08/27/18 2156 ??? capsaicin (CAPZASIN-HP) 0.1 % cream topical QID PRN Sari Hahn MD ??? citalopram (CELEXA) tablet 20 mg 20 mg oral DAILY Sonali Mills MD 20 mg at 09/03/18 0840 ??? docusate sodium (COLACE) capsule 100 mg 100 mg oral Daily PRN Sania Sifuentes MBBS ??? lactulose (CHRONULAC) 20 gram/30 mL solution 30 mL 30 mL oral Q4H PRN Katina Garzon MD 30 mL at 09/03/18 0115 ??? lactulose (CHRONULAC) 20 gram/30 mL solution 30 mL 30 mL oral DAILY Sania Sifuentes MBBS 30 mL at 09/03/18 0840 ??? losartan (COZAAR) tablet 50 mg 50 mg oral DAILY Sonali Mills MD 50 mg at 09/03/18 0839 ??? magnesium hydroxide (MILK OF MAGNESIA) 400 mg/5 mL suspension 30 mL 30 mL oral Daily PRN Sania Sifuentes MBBS ??? multivitamin (FLINTSTONES) chewable tablet 2 tablet 2 Tab oral DAILY Zeinab Choudhary MD 2 Tab at 09/02/182138 ??? pantoprazole (PROTONIX) tablet 40 mg 40 mg oral BID Sonali Mills MD 40 mg at 09/03/18 0839 ??? senna (SENOKOT) tablet 1 tablet 1 Tab oral AT BEDTIME PRN Sania Sifuentes MBBS EXAM: BM x5 since yesterday BP (!) 144/67 (BP Cuff Location: Right arm, Patient Position: Standing) Comment: Notified RN Pulse 97 Temp 36.2 ??C (97.2 ??F) (Temporal) Resp 16 Ht 157.5 cm (62) Wt 82.6 kg (182 lb) SpO2 99% BMI 33.29 kg/m?? 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 Pleasant and humorous. Good eye contact. Speech fluent. Mood improving, affect spontaneous, increased range. Thought process generallylogical. Denies suicidal ideation today. Insight fair. ASSESSMENT: Depressive disorder unspecified; alcohol dependence; hepatitis C, alcoholic cirrhosis. Continued improvement from the confusion he experienced later in the week. He is more hopeful. We will not change treatment plan at this time. Lactulose seems to be helping. PLAN: Unchanged, refer to orders and multidisciplinary team treatment plan. continue lactulose to 4times daily. Follow-up with medicine as needed Gera Beckman MD Attending Psychiatrist day habilitation supervisor * Gera Beckman MD, MD - 09/02/2018 1240 EDT 09/02/2018 ATTENDING LEAF CONDITIONER NOTE: CHIEF COMPLAINT: Suicidality HOSPITAL DAY: LOS: 24 days INTERIM HISTORY: Events of past 24h reviewed with nursing staff and chart reviewed. Seen by stroke team yesterday. Continues to have some word finding difficulty this morning but feels things are better. Had his MRI this morning. He loses his train of thought. He states my sentences are coming back. Increased ammonia level Current Facility-Administered Medications Medication Dose Route Frequency Provider Last Rate Last Dose ??? acetaminophen (TYLENOL) tablet 500 mg 500 mg oral Q6H PRN Katina Garzon MD 500 mg at 08/27/182155 ??? capsaicin (CAPZASIN-HP) 0.1 % cream topical QID PRN Sari Hahn MD ??? citalopram (CELEXA) tablet 20 mg 20 mg oral DAILY Sonali Mills MD 20 mg at 09/02/18906 ??? docusate sodium (COLACE) capsule 100 mg 100 mg oral Daily PRN Sania Sifuentes MBBS ??? lactulose (CHRONULAC) 20 gram/30 mL solution 30 mL 30 mL oral Q4H PRN Katina Garzon MD ??? lactulose (CHRONULAC) 20 gram/30 mL solution 30 mL 30 mL oral DAILY Sania Sifuentes MBBS 30 mL at 09/02/18907 ??? losartan (COZAAR) tablet 50 mg 50 mg oral DAILY Sonali Mills MD 50 mg at 09/02/18906 ??? magnesium hydroxide (MILK OF MAGNESIA) 400 mg/5 mL suspension 30 mL 30 mL oral Daily PRN Sania Sifuentes MBBS ??? multivitamin (FLINTSTONES) chewable tablet 2 tablet 2 Tab oral DAILY Zeinab Choudhary MD 2 Tab at 09/01/182025 ??? pantoprazole (PROTONIX) tablet 40 mg 40 mg oral BID Sonali Mills MD 40 mg at 09/02/18907 ??? senna (SENOKOT) tablet 1 tablet 1 Tab oral AT BEDTIME PRN Sania Sifuentes MBBS EXAM: BP (!) 163/70 (BP Cuff Location: Left arm, Patient Position: Sitting) Comment: RN Notified Pulse 56 Temp 37 ??C (98.6 ??F) (Temporal) Resp 16 Ht 157.5 cm (62) Wt 82.6 kg (182 lb) SpO2 100% BMI 33.29 kg/m?? MSE: Casually dressed, friendly, attentive. 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 Good eye contact. Speech fluent. Occasional thought latency. Mood anxious, affect mildly restricted. Thought process generally logical. Some latency of thought. He is able to reflect on this. Insight fair, judgment fair. He does not complain of any suicidal ideation. ASSESSMENT: Depressive disorder unspecified; alcohol dependence; hepatitis C, alcoholic cirrhosis. Appears to be stable from a psychiatric point of view. He has been followed the last couple days by neurology and medicine. Resident contacted neurology and recommendation is to give lactulose to the point of increasing his daily bowel movements. Will monitor his mental status over the weekend. PLAN: Unchanged, refer to orders and multidisciplinary team treatment plan. Increase lactulose to 4times daily. Follow-up with neurology and medicine as needed Gera Beckman MD Attending Psychiatrist day habilitation supervisor * Marielle Stephens RN - 09/02/2018 0643 EDT Assumed care from 3 a until 7 a Pt has been awake most of the night, sleeping only 45 minutes. He has been quiet, conversing with another patient who has been awake and drinking sanka. He has been able to make needs known, and has not seemed confused, or symptomatic of stroke sx * Mahnaz Moss RN - 09/01/2018 2203 EDT Time of care 1929 to 2329. Pt remains as voluntary admission, NURYS 3 on frequent observation. Socialin milieu with female peer. Flat affect, good eye contact, pleasant during each interaction with RN. Pt reminded of order for occult blood fecal sample needed. No sample provided during time of care.Reported anterior [place] 10. ThermaCare wrap provided per patient request. Declined other intervention by RN. Resting in bed, expressed gratitude for care. * Venkata Telles LICSW - 09/01/2018 0937 EDT Social Work Progress Note Intervention/Service: Coordination of care and Discharge planning SW met with Alonzo this morning and called his supervisor publications production with him. The supervisor publications production was outof the office so we left a message requesting a return call. Alonzo stated he was having a hard day and was really tired today due to checks. Should have a decision on whether or not [facility] will accept him today. CISCO Guillen * Sonali Mills MD, - 09/01/2018 0913 EDT Inpatient Psychiatry Daily Progress Note Date of Service: 09/01/2018 Admit Date: 08/09/2018 Hospital day: LOS: 23 days Legal Status: Legal status: Voluntary Observation Level: Observation / visual check: Routine (Q hour day / rena, Q 1/2 hour night) Locus/Risk of Harm: Current locus of harm: 3 Reason for Admission/Chief Complaint: SI Clinical Update/24-hour Events: Events of past 24 hours reviewed with multidisciplinary team and chart review. No significant events. Sleep: Slept total 1.25 hours /24 hours. Appetite: declined lunch stating loss of appetite but denied nausea. Medication changes: none- accepting lactulose OD dosing Medication side effects: Denies PRNs: none Groups: attending and participatory. Pain: denies -Per RN report was intrusive with some patient's on the unit yesterday evening. Met with Alonzo in his room this a.m. He reports that he is confused and is crying profusely but also laughs at one point- referring back to a joke shared before. He reports finding it difficult toexpress his emotions and thoughts and states that he is sad. When I reflect on this being somewhat similar to his presentation on admission he agrees and states that he is grieving that the MS3 has left. I ordered labs due to concern for delirium. Labs including CBC/HCT,electrolytes, UA and UDS were unremarkable. Ammonia was 74. Saw him again later in the day and he was oriented to time, place personand able to communicate better. Declined lunch while I was with him. Stating loss of appetite but denied nausea. He was seen by Dr. Mills in the late afternoon and appeared to be having even more difficulty with speech fluency- a stroke code was called. Current Facility-Administered Medications: acetaminophen (TYLENOL) tablet 500 mg oral Q6H PRN capsaicin (CAPZASIN-HP) 0.1 % cream topical QID PRN citalopram (CELEXA) tablet 20 mg oral DAILY docusate sodium (COLACE) capsule 100 mg oral Daily PRN lactulose (CHRONULAC) 20 gram/30 mL solution 30 mL oral DAILY losartan (COZAAR) tablet 50 mg oral DAILY magnesium hydroxide (MILK OF MAGNESIA) 400 mg/5 mL suspension 30 mL oral Daily PRN multivitamin (FLINTSTONES) chewable tablet 2 tablet oral DAILY pantoprazole (PROTONIX) tablet 40 mg oral BID senna (SENOKOT) tablet 1 tablet oral AT BEDTIME PRN Review of Systems: As above Mental Status Exam: Well-developed, well-nourished male, appears stated age- scar on face, casually dressed, with appropriate grooming and hygiene sitting on his bed -tearful. Calm, polite, and cooperative. Distress palpable- crying voluminously. Some generalized psychomotor slowing but no abnormal/involuntary movements. Speech unremarkable for volume- sparse- difficulty expressing thoughts/stilted. Stated mood is sad, and affect is congruent, tearful, dysphoric, restricted. Thought process appears linear with tight associations- however looses train of thought/forgets/derailing . Thought content is reality based and future- oriented, notable for anxiety related to difficulty with speech. No overt paranoia, obsessions, or delusions. Denies SI, HI or perceptual disturbances. Patient is alert and oriented to time of day, place and person-concentration low. Insight and Judgement is fair. Physical Exam: BP 116/58 (BP Cuff Location: Left arm, Patient Position: Sitting) Pulse 57 Temp 36.7 ??C (98.1 ??F) (Temporal) Resp 12 Ht 157.5 cm (62) Wt 82.6 kg (182 lb) SpO2 99% BMI 33.29 kg/m?? Data Review: Labs: No results found for this or any previous visit (from the past 24 hour(s)). Assessment/Formulation: Alonzo Urbina is a 63 y.o. year old man with past h/o depression, polysubstance use disorder liver cirrhosis( s/p TIPS) and duodenal ulcer who presented with severe depression and SI in the contextof several psychosocial stressors including 2nd DUI the day before admission. The patient's presentation is most consistent with the diagnosis of unspecified mood disorder (moderate to severe depression) likely substance induced vs MDD vs adjustment disorder with mixed depressed and anxious mood. Today Alonzo presented with sadness, emotional distress and difficulty speaking/communicatiing /aphasia like symptoms. Given his initial complain of confusion and loss of concentration/cognitive difficulty lab tests were ordered to rule out delirium/hepatic encephalitis/GI bleed( he had also complained of 1 tarry stool) . Labs were unremarkable except a urea of 74 and anemia which is present sinceadmission. His medication list was reviewed and no recent changes have been made that may contribute to ongoing delirium. However given his continued and worsening difficulty with speech and normal lab results (except as noted) concern was raised for a possible stroke and a stroke code was called. A CT scan of head was done and report is awaited . The patient was signed out to oncoming resident and we will follow up with neurology if concerns for stroke persist/are confirmed. Alonzo Urbina meets criteria for acute level of care. Diagnostic Impression w/ Differential Diagnosis Psychiatric Diagnoses (including Personality Traits/Disorders): unspecified depression r/o MDD vs substance induced vs adjustment disorder, substance use disorder- active both alcohol and cocaine., r/o cluster B traits. Other Medical Conditions: Hepatitis C, cirrhosis s/p TIPS, duodenal ulcer s/p embolization, s/p back surgery( scoliosis Plan: - Encourage self care thorough attention to ADLs and exercise as tolerated - Encourage groups Aphasia: Neurology consulted to r/o stroke. CT head done. MR head ordered. Labs reviewed- unremarkable except urea level 74. Substance use disorder: - Encourage group - Discussion of acamprosate deferred due to acute change in presentation today.?? Depression/Anxiety - Continue Citalopram 20 mg daily.( max dose 2/2 liver cirrhosis) - hydroxyzine d/c. ?? 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 D/c nadolol per Gastroenterology consult. ?? Duodenal Ulcer (s/p GI bleed requiring transfusion June 2018, s/p embolization of ulcer blood supply) Avoid NSAIDs Protonix 40mg BID CBC/HCT- no acute change ?? HTN: Losartan 50 mg daily Headache: resolved Tylenol prn Discharge Plan: Discharge planning per multidisciplinary team rounds- awaiting placement at [facility]. NORBERTO Miranda 09/01/2018 9:13 PGY2 Residential Driver Attending Attestation: I saw and evaluated the patient today. Treatment plan reviewed with the patient and team. I agree with (and/or have edited in blue text) the findings and plan of care as documented in the resident's/PA/medical student's note. Total time spent directly with patient was 35 minutes of which 20 minuteswas spent in counseling (re:symptoms and treatment plan as in note above) and/or in coordination ofcare with the multidisciplinary team. SONALI MILLS MD Attending Psychiatrist [facility] Pager [phone] * Venkata Telles LICSW - 08/31/2018 1532 EDT Social Work Progress Note Intervention/Service: Discharge planning JIMENEZ met with Alonzo and sat with him through his phone screening with [facility]. The next step in the process is for the Clinical Lead Developer to review the information, they will have an answer forJames tomorrow. Alonzo asked if JIMENEZ would assist him with calling his supervisor publications production tomorrow. JIMENEZ made a plan to meet with Alonzo at 8:30am. CISCO Guillen * Sonali Mills MD, MD - 08/31/2018 0853 EDT Inpatient Psychiatry Daily Progress Note Date of Service: 08/31/2018 Admit Date: 08/09/2018 Hospital day: LOS: 22 days Legal Status: Legal status: Voluntary Observation Level: Observation / visual check: Routine (Q hour day / rena, Q 1/2 hour night) Locus/Risk of Harm: Current locus of harm: 3 Reason for Admission/Chief Complaint: SI Clinical Update/24-hour Events: Events of past 24 hours reviewed with multidisciplinary team and chart review. No significant events. Sleep: Slept total 3.5 hours /24 hours. Appetite: unchanged Medication changes: none- accepting lactulose OD dosing Medication side effects: Denies PRNs: none Groups: attending and participatory. Pain: denies Reports having a phone meeting with [facility] this afternoon at 1 p.m. Met with Alonzo in his room - once this morning with MS3 Mahnaz marilyn - from her notes in italics: Alonzo spent last night working through a chapter of The Depression Handbook on Cognitive Distortions. He shared some of his reflections, and said he feels good, powerful, clear, and loved (by the people on this floor). He believes in his ability to find success in life, as long as he stays sober. When asked what would happen if he slipped and had a drink, he says, It can't happen. If I take a drink, that will be the end of things. This will be the work that he does when in [facility] - how to establish a realistic support network at home. Met with him again in the afternoon- and discussed several cognitive distortions and the depressionworkbook that he has been working on. He discussed his doubt about designing a plan B for relapse- stating that he would just be giving himself an out- I either drink or I don't Implied that this is his last chance at sobriety and implied that he may have recurrence of SI should he slipped-he had worked earlier on all or nothing thinking and we looked at his again and how it may apply tohis thought process regarding relapse- he endorsed that for him alcohol was a complete no- no - butif he had extremely strong cravings -he would contact his sponsor.( he intends to go to 5- 10 AA meetings in [facility] hoping to find a male sponsor that he can connect with) Current Facility-Administered Medications: acetaminophen (TYLENOL) tablet 500 mg oral Q6H PRN capsaicin (CAPZASIN-HP) 0.1 % cream topical QID PRN citalopram (CELEXA) tablet 20 mg oral DAILY docusate sodium (COLACE) capsule 100 mg oral Daily PRN lactulose (CHRONULAC) 20 gram/30 mL solution 30 mL oral DAILY losartan (COZAAR) tablet 50 mg oral DAILY magnesium hydroxide (MILK OF MAGNESIA) 400 mg/5 mL suspension 30 mL oral Daily PRN multivitamin (FLINTSTONES) chewable tablet 2 tablet oral DAILY pantoprazole (PROTONIX) tablet 40 mg oral BID senna (SENOKOT) tablet 1 tablet oral AT BEDTIME PRN Review of Systems: As above Mental Status Exam: Well-developed, well-nourished male, appears stated age- scar on face, walks with a limp, casually dressed, with appropriate grooming and hygiene. Calm, polite, and cooperative. No apparent distress.Some generalized psychomotor slowing but no abnormal/involuntary movements. Speech unremarkable forrate, rhythm, tone, or volume. Stated mood is good, and affect is congruent, bright and well modulated. Thought process is linear with tight associations. Thought content is reality based and future-oriented. Looking for approval when discussing his work on the cognitive distortions. No overt paranoia, obsessions, or delusions. Denies SI, HI or perceptual disturbances. Patient is alert and oriented to time of day, place and person- language, cognition, and memory are grossly intact. Insight improving- able to self reflect. Judgement is good.( attending groups, engages well) Physical Exam: BP 134/62 (Patient Position: Sitting) Pulse 63 Temp 37.4 ??C (99.3 ??F) (Temporal) Resp 17 Ht 157.5 cm (62) Wt 82.6 kg (182 lb) SpO2 98% BMI 33.29 kg/m?? Data Review: Labs: No results found for this or any previous visit (from the past 24 hour(s)). Assessment/Formulation: Alonzo Urbina is a 63 y.o. year old man with past h/o depression, polysubstance use disorder liver cirrhosis( s/p TIPS) and duodenal ulcer who presented with severe depression and SI in the contextof several psychosocial stressors including 2nd DUI the day before admission. The patient's presentation is most consistent with the diagnosis of unspecified mood disorder (moderate to severe depression) likely substance induced vs MDD vs adjustment disorder with mixed depressed and anxious mood. Today he presents with continued bright affect and future orientation and is willing and engaged inpsychotherapeutic work- working on CBT while he is awaiting placement at [facility].- likely next week. Alonzo Urbina meets criteria for acute level of care. Diagnostic Impression w/ Differential Diagnosis Psychiatric Diagnoses (including Personality Traits/Disorders): unspecified depression r/o MDD vs substance induced vs adjustment disorder, substance use disorder- active both alcohol and cocaine., r/o cluster B traits. Other Medical Conditions: Hepatitis C, cirrhosis s/p TIPS, duodenal ulcer s/p embolization, s/p back surgery( scoliosis Plan: - Encourage self care thorough attention to ADLs and exercise as tolerated - encourage groups Substance use disorder: - Encourage group - Will discuss starting acamprosate with Alonzo tomorrow - naltrexone deferred as it is C/I in livercompromise.. ?? Depression/Anxiety - Continue Citalopram 20 mg daily.( max dose 05/13 liver cirrhosis) - hydroxyzine d/c. ?? 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 D/c nadolol per Gastroenterology consult. ?? Duodenal Ulcer (s/p GI bleed requiring transfusion June 2018, s/p embolization of ulcer blood supply) Avoid NSAIDs Protonix 40mg BID ?? HTN: Losartan 50 mg daily Headache: resolved Tylenol prn - d/c Magnesium & CoQ 10 - per patient request. Discharge Plan: Discharge planning per multidisciplinary team rounds- awaiting placement at [facility]. NORBERTO Miranda 08/31/2018 8:52 PGY2 Residential Driver Attending Attestation: I saw and evaluated the patient today. Treatment plan reviewed with the patient and team. I agree with (and/or have edited in blue text) the findings and plan of care as documented in the resident's/PA/medical student's note. Total time spent directly with patient was 25 minutes of which 15 minuteswas spent in counseling (re:symptoms and treatment plan as in note above) and/or in coordination ofcare with the multidisciplinary team. SONALI MILLS MD Attending Psychiatrist [facility] Pager [phone] * Sonali Mills MD, MD - 08/30/2018 5143 EDT Inpatient Psychiatry Daily Progress Note Date of Service: 08/30/2018 Admit Date: 08/09/2018 Hospital day: LOS: 21 days Legal Status: Legal status: Voluntary Observation Level: Observation / visual check: Q 15 minutes (frequent) Locus/Risk of Harm: Current locus of harm: 3 Reason for Admission/Chief Complaint: SI Clinical Update/24-hour Events: Events of past 24 hours reviewed with multidisciplinary team and chart review. No significant events. Sleep: Slept total 2.75 hours /24 hours. Appetite: unchanged Medication changes: lactulose decreased to OD dosing Medication side effects: Denies PRNs: none Groups: attending and participatory. Pain: conradclarence Met with Alonzo in his room- soon after we began our interview the group therapist stopped by to invite Alonzo to group- he stated he would be a little late and I will pull a A(refering to a patient he did not get along with before). I brought his attention to the fact that he has often called himself a manipulator - we talked about cognitive distortions, Labelling and all or none thinking specifically (CBT)- he was open to this discussion with some resistance. Also described in detail his manipulative behavior about asking for tylenol over the weekend and about spitting into said patient's cup. When asked what recounting these incidences to me did for him- he stated that he enjoyed it but that he regrets it later- we discussed being aware of these mental processes and figuring out what he values more - the pleasure from these behaviors or not experiencing regret/shame/psychologicalpain later.(ACT therapy) Current Facility-Administered Medications: acetaminophen (TYLENOL) tablet 500 mg oral Q6H PRN capsaicin (CAPZASIN-HP) 0.1 % cream topical QID PRN citalopram (CELEXA) tablet 20 mg oral DAILY docusate sodium (COLACE) capsule 100 mg oral Daily PRN [START ON 08/31/2018] lactulose (CHRONULAC) 20 gram/30 mL solution 30 mL oral DAILY losartan (COZAAR) tablet 50 mg oral DAILY magnesium hydroxide (MILK OF MAGNESIA) 400 mg/5 mL suspension 30 mL oral Daily PRN magnesium oxide (MAG-OX) tablet 400 mg oral DAILY multivitamin (FLINTSTONES) chewable tablet 2 tablet oral DAILY pantoprazole (PROTONIX) tablet 40 mg oral BID senna (SENOKOT) tablet 1 tablet oral AT BEDTIME PRN thiamine (VITAMIN B1) tablet 100 mg oral DAILY Review of Systems: As above Mental Status Exam: Well-developed, well-nourished male, appears stated age- scar on face, walks with a limp, casually dressed, with appropriate grooming and hygiene. Calm, polite, and cooperative. No apparent distress.Some generalized psychomotor slowing but no abnormal/involuntary movements. Speech unremarkable forrate, rhythm, tone, or volume. Stated mood is I am working on myself, and affect is congruent, bright, mostly well modulated- overly dramatic when describing his behaviors. Thought process is linear with tight associations. Thought content is reality based and future-oriented. ( talks about making several lifestyle changes including going to AA and finding a sponsor). No overt paranoia, obsessions, or delusions. Denies SI or perceptual disturbances. Patient is alert and oriented to time of day, place and person- language, cognition, and memory are grossly intact. Insight improving ( talks about needing to change lifestyle to manage substance use). Judgement is good.( attending groups, engages well) Physical Exam: BP 132/63 Pulse 62 Temp 36.7 ??C (98.1 ??F) (Temporal) Resp 17 Ht 157.5 cm (62) Wt 82.6 kg (182 lb) SpO2 100% BMI 33.29 kg/m?? Data Review: Labs: No results found for this or any previous visit (from the past 24 hour(s)). Assessment/Formulation: Alonzo Urbina is a 63 y.o. year old man with past h/o depression, polysubstance use disorder liver cirrhosis( s/p TIPS) and duodenal ulcer who presented with severe depression and SI in the contextof several psychosocial stressors including 2nd DUI the day before admission. The patient's presentation is most consistent with the diagnosis of unspecified mood disorder (moderate to severe depression) likely substance induced vs MDD vs adjustment disorder with mixed depressed and anxious mood. Alonzo Urbina meets criteria for acute level of care. Diagnostic Impression w/ Differential Diagnosis Psychiatric Diagnoses (including Personality Traits/Disorders): unspecified depression r/o MDD vs substance induced vs adjustment disorder, substance use disorder- active both alcohol and cocaine., r/o cluster B traits. Other Medical Conditions: Hepatitis C, cirrhosis s/p TIPS, duodenal ulcer s/p embolization, s/p back surgery( scoliosis Plan: - Encourage self care thorough attention to ADLs and exercise as tolerated - encourage groups Substance use disorder: - Encourage group - May consider naltrexone in context of ongoing IOP. ?? Depression/Anxiety - Continue Citalopram 20 mg daily.( max dose 2/2 liver cirrhosis) - hydroxyzine d/c. ?? 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 D/c nadolol per Gastroenterology consult. ?? Duodenal Ulcer (s/p GI bleed requiring transfusion June 2018, s/p embolization of ulcer blood supply) Avoid NSAIDs Protonix 40mg BID ?? HTN: Losartan 50 mg daily Headache: resolved Tylenol prn - d/c Magnesium & CoQ 10 - per patient request. Discharge Plan: Discharge planning per multidisciplinary team rounds. NORBERTO Miranda 08/30/2018 16:52 PGY2 Residential Driver Attending Attestation: I saw and evaluated the patient today. Treatment plan reviewed with the patient and team. I agree with (and/or have edited in blue text) the findings and plan of care as documented in the resident's/PA/medical student's note. Total time spent directly with patient was 25 minutes of which 15 minuteswas spent in counseling (re:symptoms and treatment plan as in note above) and/or in coordination ofcare with the multidisciplinary team. SONALI MILLS MD Attending Psychiatrist [facility] Pager [phone] * Venkata Telles LICSW - 08/30/2018 1319 EDT Social Work Progress Note Intervention/Service: Community referral, Coordination of care and Discharge planning JIMENEZ met with Alonzo at 1pm to be present for his phone screening with [email or web address]. JIMENEZ was mistakenabout day of phone screening and it is actually scheduled for tomorrow 08/31/18 @1pm. JIMENEZ will be present with Alonzo when he makes that call tomorrow. CISCO Guillen * Venkata Telles LICSW - 08/29/2018 1516 EDT Social Work Progress Note Intervention/Service: Community referral, Coordination of care and Discharge planning JIMENEZ met with Alonzo today and let him know that his phone screening with Karen Mackay is planned for 08/30/18 @1pm. JIMENEZ also assisted in getting Alonzo some clothing from the donation closet today. CISCO Guillen * Sonali Mills MD, MD - 08/29/2018 0928 EDT Medical Student Inpatient Psychiatry Daily Progress Note Date of Service: 08/29/2018 Admit Date: 08/09/2018 Hospital day: LOS: 20 days Legal Status: Legal status: Voluntary Observation Level: Observation / visual check: Q 15 minutes (frequent) Locus/Risk of Harm: Current locus of harm: 3 Reason for Admission/Chief Complaint: SI Clinical Update/24-hour Events: -Sleep: 3 1/2 hours in 24 hours -Attending groups: did not attend groups due to the behavior in group of patient A.S. (see Safety Plan from 08/27) -Mood:I feel clearer than I have in a long time. Alonzo appeared agitated this morning, and is fixated on his interactions with A.S. Alonzo described a conversation early this morning that he had with another patient in the conference room when A.S. asked to join. Alonzo said firmly, No. When asked why, Alonzo said, Because I don't like you. Alonzo reported that at some point he intentionally spit in a hot cup of coffee in the conference room, and later watched A.S. drink it. It hasn't been confirmed whether or not he actually did it. When asked about his own progress, Alonzo did share that this is the clearest he has been in a longtime. He is looking forward to his intake interview for [email or web address] (which has not yet been scheduled), and to taking time after that to fish and reflect. He spoke with his supervisor publications production today, and learned that he will need to spend some time in residential for his DUI (anywhere from 1-12 months). Alonzo has agreed to taking lactulose once a day, in the mornings. The nursing report indicates thathe has taken it twice a day for the past two days. Alonzo discussed further his reasons for lying about needing to take Tylenol for pain this weekend. 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 business opportunities, employee accountability). Current Facility-Administered Medications: acetaminophen (TYLENOL) tablet 500 mg oral Q6H PRN capsaicin (CAPZASIN-HP) 0.1 % cream topical QID PRN citalopram (CELEXA) tablet 20 mg oral DAILY docusate sodium (COLACE) capsule 100 mg oral Daily PRN lactulose (CHRONULAC) 20 gram/30 mL solution 30 mL oral Q6H losartan (COZAAR) tablet 50 mg oral DAILY magnesium hydroxide (MILK OF MAGNESIA) 400 mg/5 mL suspension 30 mL oral Daily PRN magnesium oxide (MAG-OX) tablet 400 mg oral DAILY melatonin tablet 3 mg oral AT BEDTIME PRN multivitamin (FLINTSTONES) chewable tablet 2 tablet oral DAILY pantoprazole (PROTONIX) tablet 40 mg oral BID senna (SENOKOT) tablet 1 tablet oral AT BEDTIME PRN thiamine (VITAMIN B1) tablet 100 mg oral DAILY Review of Systems: Patient denies SANFORD, change in vision and hearing, cough, rhinorrhea, CP, SOB, abdominal pain, N/V/D,constipation, myalgias/arthralgias, paraesthesias. Last BM: Mental Status Exam: Patient is a 63 y.o. man appearing stated age, dressed in yesterday's blue T-shirt and khaki pants, with a fresh shave from this morning. Cooperative during interview. No psychomotor abnormalities observed. Speech is normal rate, rhythm, and volume. Appropriate eye contact. Mood is clear. Affect is agitated, but also mood-congruent and well-modulated when discussing himself. Thought content is fixated on the issues Alonzo has with this other patient, A.S. Thought content does not include any obvious delusions. Denies SI/HI. Denies AVH. Does not appear to be responding to internal stimuli. Thought process is slightly circular, coming back to the confrontations with the other patient. Cognition tested yesterday with MoCA () and appears grossly intact. The fact that Alonzo wanted to share with A.S. About his spitting in the cup shows poor judgement. At the same time, he has taken his lactulose for the last two days (judgement). He shows poor insight about his own part in the interactions with patient Nate. Physical Exam: BP (!) 145/75 Pulse 57 Temp 37 ??C (98.6 ??F) (Temporal) Resp 16 Ht 157.5 cm (62) Wt 82.6 kg (182 lb) SpO2 100% BMI 33.29 kg/m?? Data Review: Labs: No results found for this or any previous visit (from the past 24 hour(s)). Other studies: N/A Assessment/Formulation: Alonzo Urbina is a 63 y.o. year old man with a PMH of Hepatitis C, liver cirrhosis, active substance abuse disorder (cocaine and alcohol) with three prior substance rehabilitation programs but no history of psychiatric hospitalizations. He presents with SI in the context of several psychosocial st ressors including loss of disability, recent move to the area (three months ago) and acquiring a second DWI, in addition to an VICKEY score of 6. The patient's presentation is most consistent with the diagnosis of moderate to severe depression, polysubstance use disorder, and cluster B traits.. Alonzo is ambivalent about working on himself today, while this other patient is on the floor, It'seither him or me! He did agree to discuss goal-setting for the remainder of his stay in order to transition to [facility]. Diagnostic Impression w/ Differential Diagnosis Psychiatric Diagnoses (including Personality Traits/Disorders): unspecified depression r/o MDD vs substance use disorder (active - cocaine and alcohol), r/o cluster B traits Other Medical Conditions: Hepatitis C, cirrhosis s/p TIPS, duodenal ulcer s/p embolization, s/p back surgery (scoliosis) Plan: - Citalopram 20 mg daily (depression) - hydroxazine 50 mg 4hq, prn (anxiety) - Continued engagement with self-care through attention to ADL's and exercise as tolerated - Encourage participation in groups - Substance Use/Recovery Group - Develop discharge plan for inpatient rehabilitation - Discontinue melatonin - Make sure tylenol is only PRN (no need to offer) Observation Level: Observation / visual check: Q 15 minutes (frequent) Locus/Risk of Harm: Current locus of harm: 3 Discharge Plan: Discharge planning per multidisciplinary team rounds. Mahnaz Felix, MS3 08/29/2018 9:28 Attending Attestation: I saw and evaluated the patient on 08/29/18. Treatment plan reviewed with the patient and team. I was present with the medical student for the history, exam, medical decision making documented by him/her. I have personally performed my own physical exam and medical decision making. I have verified and agree with (or, as indicated, have edited) the medical student???s documentation. I agree with (and/or have edited in blue text) the findings and plan of care as documented in the resident's/PA/medical student's note. Total time spent directly with patient was 35 minutes of which 20 minutes was spent in counseling (re:symptoms and treatment plan as in note above) and/or in coordination of care with the multidisciplinary team. SONALI MILLS MD Attending Psychiatrist [facility] Pager [phone] * Venkata Telles LICSW - 08/28/2018 1537 EDT Social Work Progress Note Intervention/Service: Coordination of care JIMENEZ met with Alonzo today. Alonzo was feeling really good about getting all of his furniture moved over the weekend. JIMENEZ explained that we need to reschedule his phone screening with [facility]. JIMENEZ left message with Marilyn at [facility]. CISCO Guillen * Sonali Mills MD, MD - 08/28/2018 1217 EDT Medical Student Inpatient Psychiatry Daily Progress Note Date of Service: 08/28/2018 Admit Date: 08/09/2018 Hospital day: LOS: 19 days Legal Status: Legal status: Voluntary Observation Level: Observation / visual check: Q 15 minutes (frequent) Locus/Risk of Harm: Current locus of harm: 3 Reason for Admission/Chief Complaint: SI Clinical Update/24-hour Events: -Sleep: 1/2 hour in 24 hours -Attending groups: did not attend groups due to the behavior in group of patient A.S. (see Safety Plan from 08/27) -Mood:I feel great. Alonzo appeared in good spirits this morning, despite getting little sleep last night. He received abox of his belongings, which were sent [facility] from [facility] after his things were moved into hisnew apartment. He said it was a big relief to get his apartment moved, and have his personal belongings including his checkbook. There were some concerns about his cognitive status, given his agitation this weekend, so a MoCA was administered. His score was 29/30, with very minor spatial deficits. When asked about his refusal of his lactulose, Alonzo complained that it gives him diarrhea. The lasttime he took lactulose was 08/21, and he took it this afternoon. The Hospitalist was called for guidance; pt needs to be on it more frequently to prevent the build-up of ammonia. Alonzo agreed to commit to a medication schedule, but not twice a day as written. Pt described active irritation/anger towards another patient who has been disruptive in group and provokes him. He has not gone to group and is not in the miilieu as much due to this other patient. He feels this patient is bamboozling you and is a professional patient. We explored his lying about having a headache on Tuesday, requesting medications. He isn't sure why he did it other than to get one over on us. The headache went away last week. Will continue to fight his manipulative self and try to be honest. Will follow our recs for treatment. Current Facility-Administered Medications: acetaminophen (TYLENOL) tablet 500 mg oral Q6H PRN capsaicin (CAPZASIN-HP) 0.1 % cream topical QID PRN citalopram (CELEXA) tablet 20 mg oral DAILY docusate sodium (COLACE) capsule 100 mg oral Daily PRN lactulose (CHRONULAC) 20 gram/30 mL solution 30 mL oral Q6H losartan (COZAAR) tablet 50 mg oral DAILY magnesium hydroxide (MILK OF MAGNESIA) 400 mg/5 mL suspension 30 mL oral Daily PRN magnesium oxide (MAG-OX) tablet 400 mg oral DAILY melatonin tablet 3 mg oral AT BEDTIME PRN multivitamin (FLINTSTONES) chewable tablet 2 tablet oral DAILY pantoprazole (PROTONIX) tablet 40 mg oral BID senna (SENOKOT) tablet 1 tablet oral AT BEDTIME PRN thiamine (VITAMIN B1) tablet 100 mg oral DAILY Review of Systems: Patient denies SANFORD, change in vision and hearing, cough, rhinorrhea, CP, SOB, abdominal pain, N/V/D,constipation, myalgias/arthralgias, paraesthesias. Last BM: Mental Status Exam: Patient is a 63 y.o. man appearing stated age, dressed in blue T-shirt and khaki pants, with appropriate grooming and hygiene. Cooperative during interview. No psychomotor abnormalities observed. Speech is normal rate, rhythm, and volume. Appropriate eye contact. Mood is good. Affect ismood-congruent, well modulated, euthymic. Thought content does not include any obvious delusions. Denies SI/HI. Denies AVH. Does not appear to be responding to internal stimuli. Thought process is coherent, linear,logical. Cognition tested with MoCA () and appears grossly intact. Alonzo could clearly explain why he has a prescription for lactulose due to cirrhosis, but adamant about not taking it (insight). Judgement is fair. Physical Exam: BP (!) 166/70 (BP Cuff Location: Left arm, Patient Position: Sitting) Pulse 54 Temp 36.7 ??C (98.1 ??F) (Temporal) Resp 16 Ht 157.5 cm (62) Wt 82.6 kg (182 lb) SpO2 99% BMI 33.29 kg/m?? Data Review: Labs: No results found for this or any previous visit (from the past 24 hour(s)). Other studies: N/A Assessment/Formulation: Alonzo Urbina is a 63 y.o. year old man with a PMH of Hepatitis C, liver cirrhosis, active substance abuse disorder (cocaine and alcohol) with three prior substance rehabilitation programs but no history of psychiatric hospitalizations. He presents with SI in the context of several psychosocial st ressors including loss of disability, loss of live-in girlfriend, and acquiring a second DWI, in addition to an VICKEY score of 6. The patient's presentation is most consistent with the diagnosis of moderate to severe depression, polysubstance use disorder, and cluster B traits.. Alonzo continues to engage in treatment on this unit, but also insists he would make poor choices were he to leave (like drinking a gallon of vodka in the royal). He is scheduled for an intake interview with Rehab. Diagnostic Impression w/ Differential Diagnosis Psychiatric Diagnoses (including Personality Traits/Disorders): unspecified depression r/o MDD vs substance use disorder (active - cocaine and alcohol), r/o cluster B traits Other Medical Conditions: Hepatitis C, cirrhosis s/p TIPS, duodenal ulcer s/p embolization, s/p back surgery (scoliosis) Plan: - Citalopram 20 mg daily (depression) - hydroxazine 50 mg 4hq, prn (anxiety) - Continued engagement with self-care through attention to ADL's and exercise as tolerated - Encourage participation in groups - Substance Use/Recovery Group - Develop discharge plan for inpatient rehabilitation -safety plan and monitoring of other pt's behavior on unit Observation Level: Observation / visual check: Q 15 minutes (frequent) Locus/Risk of Harm: Current locus of harm: 3 Discharge Plan: Discharge planning per multidisciplinary team rounds. Mahnaz Felix, MS3 08/28/2018 12:17 Attending Attestation: I saw and evaluated the patient today. Treatment plan reviewed with the patient and team. I was present with the medical student for the history, exam, medical decision making documented by him/her. I have personally performed my own physical exam and medical decision making. I have verified and agree with (or, as indicated, have edited) the medical student???s documentation. I agree with (and/orhave edited in blue text) the findings and plan of care as documented in the resident's/PA/medical student's note. Total time spent directly with patient was 35 minutes of which 20 minutes was spent in counseling (re:symptoms and treatment plan as in note above) and/or in coordination of care with the multidisciplinary team. SONALI MILLS MD Attending Psychiatrist [facility] Pager [phone] * Mason Hill MD, MD - 08/27/2018 0815 EDT 08/27/2018 ATTENDING LEAF CONDITIONER NOTE: CHIEF COMPLAINT: SI HOSPITAL DAY: LOS: 18 days INTERIM HISTORY: Events of past 24h reviewed with nursing staff and chart reviewed. Cooperative with care. Team feels he's improving. Attended groups. Some SI but safe on unit. Slept a lot on day shift yesterday and just 2.75h last night. Current Facility-Administered Medications: acetaminophen (TYLENOL) tablet 500 mg oral Q6H PRN capsaicin (CAPZASIN-HP) 0.1 % cream topical QID PRN citalopram (CELEXA) tablet 20 mg oral DAILY docusate sodium (COLACE) capsule 100 mg oral Daily PRN lactulose (CHRONULAC) 20 gram/30 mL solution 30 mL oral Q6H losartan (COZAAR) tablet 50 mg oral DAILY magnesium hydroxide (MILK OF MAGNESIA) 400 mg/5 mL suspension 30 mL oral Daily PRN magnesium oxide (MAG-OX) tablet 400 mg oral DAILY melatonin tablet 3 mg oral AT BEDTIME PRN multivitamin (FLINTSTONES) chewable tablet 2 tablet oral DAILY pantoprazole (PROTONIX) tablet 40 mg oral BID senna (SENOKOT) tablet 1 tablet oral AT BEDTIME PRN thiamine (VITAMIN B1) tablet 100 mg oral DAILY EXAM: BP (!) 145/64 (Patient Position: Sitting) Comment: see eMAR Pulse 62 Temp 36.9 ??C (98.4 ??F) (Temporal) Resp 16 Ht 157.5 cm (62) Wt 80.3 kg (177 lb) SpO2 97% BMI 32.37 kg/m?? MSE: Awake and alert. Easily engaged. Cooperative. Denied suicidal ideation or psychotic symptoms. Speech was of normal rate, content, volume, and prosody. Normal motor movements. No new complaints. ASSESSMENT: Diagnosis: SI Progress: Significantly improved. PLAN: Unchanged, refer to orders and multidisciplinary team treatment plan. Mason Hill MD Attending Psychiatrist day habilitation supervisor * Mason Hill MD, MD - 08/26/2018 0841 EDT 08/26/2018 ATTENDING LEAF CONDITIONER NOTE: CHIEF COMPLAINT: SI HOSPITAL DAY: LOS: 17 days INTERIM HISTORY: Events of past 24h reviewed with nursing staff and chart reviewed. No SI or psychotic symptoms. Cooperative. Slept 7h in 24 h. Improved MS today. Current Facility-Administered Medications: acetaminophen (TYLENOL) tablet 500 mg oral Q6H PRN capsaicin (CAPZASIN-HP) 0.1 % cream topical TID citalopram (CELEXA) tablet 20 mg oral DAILY docusate sodium (COLACE) capsule 100 mg oral Daily PRN lactulose (CHRONULAC) 20 gram/30 mL solution 30 mL oral Q6H losartan (COZAAR) tablet 50 mg oral DAILY magnesium hydroxide (MILK OF MAGNESIA) 400 mg/5 mL suspension 30 mL oral Daily PRN magnesium oxide (MAG-OX) tablet 400 mg oral DAILY multivitamin (FLINTSTONES) chewable tablet 2 tablet oral DAILY pantoprazole (PROTONIX) tablet 40 mg oral BID senna (SENOKOT) tablet 1 tablet oral AT BEDTIME PRN thiamine (VITAMIN B1) tablet 100 mg oral DAILY EXAM: BP (!) 145/64 (Patient Position: Sitting) Comment: see eMAR Pulse 62 Temp 36.9 ??C (98.4 ??F) (Temporal) Resp 16 Ht 157.5 cm (62) Wt 80.3 kg (177 lb) SpO2 97% BMI 32.37 kg/m?? MSE: Awake and alert. Easily engaged. Cooperative. Denied suicidal ideation or psychotic symptoms. Speech was of normal rate, content, volume, and prosody. Normal motor movements. ASSESSMENT: Diagnosis: SI Progress: Significantly improved. PLAN: Unchanged, refer to orders and multidisciplinary team treatment plan. Mason Hill MD Attending Psychiatrist day habilitation supervisor * Sonali Mills MD, MD - 08/25/2018 1804 EDT Inpatient Psychiatry Daily Progress Note Date of Service: 08/25/2018 Admit Date: 08/09/2018 Hospital day: LOS: 16 days Legal Status: Legal status: Voluntary Observation Level: Observation / visual check: Constant (direct) Locus/Risk of Harm: Current locus of harm: 3 Reason for Admission/Chief Complaint: SI Clinical Update/24-hour Events: Events of past 24 hours reviewed with multidisciplinary team. Pt disoriented this morning (see nursing notes) and had confusion. Some urinary incontinence. Also with tremor in left arm. Ammonia level was ordered and CPK added this AM. Pt seen 4x today. He is groggy, sleeping on and off. Knows me and understands my explanation of hissedation/confusion (too high a dose of Haldol), however does not know the year or date. Guesses at the month and perseverates October for subsequent questions. Earlier in day had no headache, but had back pain which we discussed as likely due to long periods of time in bed. Later in day had 10/10 headache and wants medication for it. Current Facility-Administered Medications: acetaminophen (TYLENOL) tablet 500 mg oral Q6H PRN citalopram (CELEXA) tablet 20 mg oral DAILY docusate sodium (COLACE) capsule 100 mg oral Daily PRN lactulose (CHRONULAC) 20 gram/30 mL solution 30 mL oral Q6H losartan (COZAAR) tablet 50 mg oral DAILY magnesium hydroxide (MILK OF MAGNESIA) 400 mg/5 mL suspension 30 mL oral Daily PRN magnesium oxide (MAG-OX) tablet 400 mg oral DAILY multivitamin (FLINTSTONES) chewable tablet 2 tablet oral DAILY pantoprazole (PROTONIX) tablet 40 mg oral BID senna (SENOKOT) tablet 1 tablet oral AT BEDTIME PRN thiamine (VITAMIN B1) tablet 100 mg oral DAILY Mental Status Exam: Older man, somewhat disheveled, man with short-cropped hair and scrub pants/sweat shirt. He appearssedated and reports confusion. Speech with dry mouth but otherwise wnl. Affect: anxious. TP: coherent w/ linear associations. TC with no delusional ideas. Perseveration. I did not ask about SI. No per ceptual disturbances. Cognition: alert, oriented to person and place, but not to time. Also, did not recall the name of the place but knows it is a hospital. Insight: poor. Judgement: fair. Physical Exam: BP (!) 152/69 (Patient Position: Sitting) Pulse 57 Temp 37.3 ??C (99.1 ??F) (Tympanic) Resp 16 Ht 157.5 cm (62) Wt 80.3 kg (177 lb) SpO2 98% BMI 32.37 kg/m?? Later in day: afebrile, systolic 113 Data Review: Labs: Results for orders placed or performed during the hospital encounter of 08/09/18 (from the past 24 hour(s)) CK Collection Time: 08/25/18 10:30 Result Value Ref Range CK 77 0 - 250 U/L NEPHROLOGY PROFILE (INCLUDES BUN, CREATININE, CALCULATED GFR, ELECTROLYTES, CALCIUM, PHOSPHORUS, ALBUMIN) Collection Time: 08/25/18 10:30 Result Value Ref Range Sodium 141 136 - 145 mEq/L Potassium 4.2 3.5 - 5.0 mEq/L Chloride 110 96 - 110 mEq/L CO2 23 22 - 32 mEq/L BUN 19 10 - 26 mg/dl Creatinine 0.77 0.66 - 1.25 mg/dl GFR, Calculated 95 >60 ml/min/1.73m2 Calcium 10.0 8.5 - 10.5 mg/dl Calculated Calcium 9.8 8.5 - 10.5 mg/dl Phosphorus 3.8 2.5 - 4.5 mg/dl Albumin 4.2 3.4 - 4.9 g/dl AMMONIA Collection Time: 08/25/18 10:30 Result Value Ref Range Ammonia 56 (H) <34 umol/L Assessment/Formulation: Alonzo Urbina is a 63 y.o. year old man with a PMH of Hep C, alcoholic liver cirrhosis and a past psychiatric history of substance use disorder (alcohol- active, cocaine - active), 3 previous rehabilitation stays but no previous psychiatric hospitalization who presents with SI in the context of several psychosocial stressors including loss of diability pay and getting 2 nd DUI yesterday. The patient's presentation is most consistent with the diagnosis of moderate to severe depression, polysubstance use disorder and cluster B traits. In treating his severe headache, pt was put on Haldol and dose inadvertently written for BID instead of daily per neurology recommendations. SAFE report submitted. Current delirium/confusion/sedated state is most likely secondary to that. Ammonia was at baseline for him and CK does not indicate NMS. Serotonin syndrome was also considered, however more likely this is haloperidol toxicity. His improvement through the day is consistent with that. We will need to hold Haldol and typtan for his headache for now, given his condition. Alonzo Urbina meets criteria for acute level of care. Diagnostic Impression w/ Differential Diagnosis Psychiatric Diagnoses (including Personality Traits/Disorders):unspecified depression r/o MDD vs substance induced vs adjustment disorder, substance use disorder- active both alcohol and cocaine., r/o cluster B traits. Other Medical Conditions: Delirium secondary to haldol toxicity, Hepatitis C, cirrhosis s/p TIPS, duodenal ulcer s/p embolization, s/p back surgery( scoliosis) Plan: NURYS 3, constant obs. - Encourage self care thorough attention to ADLs and exercise as tolerated - encourage groups Substance use disorder: Substance use/ Recovery group Depression/Anxiety - Continue Citalopram 20 mg daily. - Continue hydroxyzine 25 mg q 4 prn. Headache: Neurology consulted- appreciate recs -Continue tylenol -Continne CoQ 10 daily - Continue Magnesium 400 mg daily -d/c haldol, d/c almotriptan When patient clears and his cognitive exam normalizes, if headache returns, may consider restart ofalmotriptan 6.25 mg daily prn headache (needs a non- formulary, brand name is Axert). If entirely clear, could retrial Haldol 2.5 mg daily prn headache but I would stagger and make sure the Axert is tolerated. If that combo works, can order it daily (but no more frequently). If not, you can call Neurology or use Tylenol prn. 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 D/c nadolol.- per Gastroenterology curbside/recomendation d/c as he is s/p TIPS. Duodenal Ulcer (s/p GI bleed requiring transfusion June 2018, s/p embolization of ulcer blood supply) Avoid NSAIDs One dose of ibuprofen 800mg given x1 Tuesday night Protonix 40mg BID HTN: Losartan 50 mg daily Discharge Plan: Discharge planning per multidisciplinary team rounds. Sonali Mills MD 08/25/2018 18:04 Psychiatry Attending Attending Attestation: I saw and evaluated the patient today. Treatment plan reviewed with the patient and team. I agree with (and/or have edited in blue text) the findings and plan of care as documented in the resident's/PA/medical student's note. Total time spent directly with patient was 60 minutes of which 45 minuteswas spent in counseling (re:symptoms and treatment plan as in note above) and/or in coordination ofcare with the multidisciplinary team. SONALI MILLS MD Attending Psychiatrist [facility] Pager [phone] * Venkata Telles [facility] - 08/25/2018 1500 EDT Social Work Progress Note Intervention/Service: Community referral, Coordination of care and Discharge planning JIMENEZ met with Alonzo today. Alonzo said he was having a rough day but feeling better. JIMENEZ explained thatwe will schedule him for a phone screening with [facility] on Tuesday. JIMENEZ let him know that he was scheduled for that today but SW canceled it. CISCO Guillen * Sonali Mills MD, - 08/24/2018 [id number] EDT Medical Student Inpatient Psychiatry Daily Progress Note Date of Service: 08/24/2018 Admit Date: 08/09/2018 Hospital day: LOS: 15 days Legal Status: Legal status: Voluntary Observation Level: Observation / visual check: Routine (Q hour day / rena, Q 1/2 hour night) Locus/Risk of Harm: Current locus of harm: 3 Reason for Admission/Chief Complaint: SI Clinical Update/24-hour Events: -Sleep: 5.5 overnight and 9 hours/24 -PRNs: tylenol- headache, atarax - anxiety -Attending groups: yes - attended 1 -Mood: good, but tired - Pain: headache 3/10 (new medications are working, though Alonzo is very drowsy) Alonzo appeared lethargic and drowsy, likely because of the haloperidol (10 mg/day). He was pleased to report that he received his social security check, which was a relief to him. Alonzo met with his care team today to discuss ways to help him move his belongings from one apartment to another, and Alonzo will handle coordinating the logistics. Social Work will look through donation clothing to pickup some items for Alonzo' transition to inpatient substance treatment program upon discharge. Review of Systems: Patient's headache was 3/10 today, no change in vision and hearing, cough, rhinorrhea, CP, SOB, abdominal pain, N/V/D, constipation, myalgias/arthralgias, paraesthesias. Current Facility-Administered Medications: acetaminophen (TYLENOL) tablet 500 mg oral Q6H PRN almotriptan (AXERT) tablet 6.25 mg oral DAILY citalopram (CELEXA) tablet 20 mg oral DAILY docusate sodium (COLACE) capsule 100 mg oral Daily PRN haloperidol (HALDOL) tablet 5 mg oral BID hydrOXYzine (ATARAX) tablet 50 mg oral Q4H PRN lactulose (CHRONULAC) 20 gram/30 mL solution 30 mL oral Q6H PRN losartan (COZAAR) tablet 50 mg oral DAILY magnesium hydroxide (MILK OF MAGNESIA) 400 mg/5 mL suspension 30 mL oral Daily PRN magnesium oxide (MAG-OX) tablet 400 mg oral DAILY multivitamin (FLINTSTONES) chewable tablet 2 tablet oral DAILY pantoprazole (PROTONIX) tablet 40 mg oral BID senna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 improvement. We will therefore continue with the current course of psychotropic medication, encourage him to attend groups andlearn and practice new coping skills while we work on discharge planning. Alonzo Urbina meets criteria for acute level of care. Diagnostic Impression w/ Differential Diagnosis Psychiatric Diagnoses (including Personality Traits/Disorders):unspecified depression r/o MDD vs substance induced vs adjustment disorder, substance use disorder- active both alcohol and cocaine., r/o cluster B traits. Other Medical Conditions: Hepatitis C, cirrhosis s/p TIPS, duodenal ulcer s/p embolization, s/p back surgery( scoliosis) Plan: NURYS 3, routine obs. - Encourage self care thorough attention to ADLs and exercise as tolerated - encourage groups Substance use disorder: Substance use/ Recovery group Depression/Anxiety - Continue Citalopram 20 mg daily. - Continue hydroxyzine 25 mg q 4 prn. Headache: Neurology consulted- appreciate recs -Continue tylenol -Continne CoQ 10 daily - Continue Magnesium 400 mg daily - Start Haloperidol 5 mg BID. 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 D/c nadolol.- per Gastroenterology curbside/recomendation d/c as he is s/p TIPS. Duodenal Ulcer (s/p GI bleed requiring transfusion June 2018, s/p embolization of ulcer blood supply) Avoid NSAIDs Protonix 40mg BID HTN: Losartan 50 mg daily Discharge Plan: Discharge planning per multidisciplinary team rounds- likely to inpatient substanceuse rehabilitation followed by individual therapy. NORBERTO Miranda 08/22/2018 14:25 PGY2 Residential Driver Attending Attestation:I saw and evaluated the patient today. Treatment plan reviewed with the patient and team. I agree with (and/or have edited in blue text) the findings and plan of care as documented in the resident's/PA/medical student's note. Total time spent directly with patient was 35 minutes of which 20 minutes was spent in counseling (re:symptoms and treatment plan as in note above) and/or in coordination of care with the multidisciplinary team. SONALI MILLS MD Attending Psychiatrist [facility] Pager [phone] * Marianna Walker MD - 08/22/2018 9421 EDT [facility] CONSULT PROGRESS NOTE PATIENT NAME: Alonzo Urbina PCP: Laurie Wiggins DATE OF ADMISSION: 08/09/2018 DATE OF SERVICE: 08/22/2018 CODE STATUS: Limitation of Treatment PRIMARY DIAGNOSIS: Migraine??with status migrainosus/post-traumatic headache OVERNIGHT EVENTS/SUBJECTIVE: Migraine continuing 11/18. MEDICATIONS: Current Facility-Administered Medications: acetaminophen (TYLENOL) tablet 500 mg oral Q6H PRN citalopram (CELEXA) tablet 20 mg oral DAILY docusate sodium (COLACE) capsule 100 mg oral Daily PRN hydrOXYzine (ATARAX) tablet 50 mg oral Q4H PRN lactulose (CHRONULAC) 20 gram/30 mL solution 30 mL oral Q6H PRN losartan (COZAAR) tablet 50 mg oral DAILY magnesium hydroxide (MILK OF MAGNESIA) 400 mg/5 mL suspension 30 mL oral Daily PRN magnesium oxide (MAG-OX) tablet 400 mg oral DAILY multivitamin (FLINTSTONES) chewable tablet 2 tablet oral DAILY pantoprazole (PROTONIX) tablet 40 mg oral BID senna (SENOKOT) tablet 1 tablet oral AT BEDTIME PRN thiamine (VITAMIN B1) tablet 100 mg oral DAILY REVIEW OF SYSTEMS: Complete 10-point ROS performed with pertinent positives and negatives as per subjective. General Exam: General appearance: alert, cooperative, no distress Skin: Skin color, temperature, turgor normal. No rashes or lesions HEENT: NC/AT, no oral lesions. Lungs: Breathing comfortably on room air Extremities: all extremities warm. Mild lower extremity edema Neurological Exam: Mental Status/Language: Alert and oriented to person, place, time, and reason for presentation, speech fluent, no aphasia or dysarthria, content appropriate. Cranial Nerves: Visual menard full, pupils round and reactive, EOMI without nystagmus, normal facial sensation and symmetry, tongue midline, palate elevates, shoulder shrug strong Motor: Normal muscle bulk and supple tone. No abnormal spontaneous movements. No rest or action tremor. Strength 5/5 bilateral UE and LE. Reflexes: DTRs 2/4 throughout, toes down bilaterally Sensation: Intact to vibration, light touch and pin prick symmetrically and bilaterally. Cerebellar: Finger to nose intact bilaterally. Gait: normal gait, normal tandem NEUROIMAGING STUDIES: CT head 08/15/2018: marked global atrophy with hydrocephalus ex vacuo ASSESSMENT: Alonzo Urbina is a 63 y.o. male with PMH of Hep C, alcoholic liver cirrhosis s/p TIPS, substance abuse (alcohol and cocaine), who is currently admitted to [facility] with suicidal ideation. Neurology is consulted for headache which he developed 3 weeks ago. ?? His headache is severe with associated phonophobia and photophobia. Although he does not have a previous diagnosis of migraine, this current headache is migrainous in quality. He cannot recall whether the blow to his head precipitated the headache, but he thinks that the headache worsened after the blow to his head. Therefore this headache may be a post-traumatic or post- concussive headache; these are typically treated similarly to migraine and also typically resolve. Of note, the last time thepatient had headaches was following a concussion at age 14. Would proceed with treatment as if thiswere a migraine, with abortive medications. His headache temporarily responded to IV compazine, Mg, NS. He also improved temporarily down to 3/10 with occipital nerve block. However he continues to have an 8/10 headache. He is not a candidate for DHE, NSAIDS, most triptans, or depakote due to cirrhosis. Ketamine is not possible due to floor issues. Almotriptan could be tried as it is a triptan which is not contraindicated with cirrhosis. PLAN: Recommend haloperidol in combination with almotriptan: -haloperidol 5 mg -almotriptan 6.25 mg is non-formulary, we will fill out the non-formulary request form on your behalf (will likely not come until tomorrow). This can be repeated once for a total daily dose of 12.5 mg. Continue daily vitamins: - Coenzyme Q10 daily - Magnesium 400 mg daily (most common side effect is loose stool) Patient staffed with Dr. Fierro on 08/21/18 Marianna Walker MD PGY2 Neurology Associated attestation - Blake Fierro MD PhD - 08/22/2018 1351 EDT Attestation statement: I saw and examined the patient with the resident/fellow. I agree with the findings and plan of care documented in the resident's/fellow's note. * Venkata Telles LICSW - 08/21/2018 1411 EDT Social Work Progress Note Intervention/Service: Community referral, Coordination of care and Discharge planning JIMENEZ met with Alonzo, Medical Student, Dr. Mills, Dr. Sifuentes today. Alonzo said that over the weekend he had contacted his landlord who is willing to hold the apartment he is moving into. Alonzo also saidhe had spoken with a old friend who is willing to come get him when he is discharged. Alonzo stated he went to group and is interested in ECT. JIMENEZ suggested that Alonzo engage in inpatientsubstance abuse treatement prior to engaging with a therapist. Alonzo said he would but was nervous about missing a court hearing next week. JIMENEZ contacted court who is sending continence form which JIMENEZ will fill out. [facility] JIMENEZ will fax clinical. CISCO Guillen * Marianna Walker MD - 08/21/2018 1320 EDT [facility] CON[facility] PROGRESS NOTE PATIENT NAME: Alonzo Urbina PCP: Laurie Wiggins DATE OF ADMISSION: 08/09/2018 DATE OF SERVICE: 08/21/2018 CODE STATUS: Limitation of Treatment PRIMARY DIAGNOSIS: Migraine??with status migrainosus/post-traumatic headache OVERNIGHT EVENTS/SUBJECTIVE: Migraine continued 8/10 all weekend. Patient is trying to get my life back together, but reports headache is limiting him. MEDICATIONS: Current Facility-Administered Medications: acetaminophen (TYLENOL) tablet 500 mg oral Q6H PRN citalopram (CELEXA) tablet 20 mg oral DAILY docusate sodium (COLACE) capsule 100 mg oral Daily PRN hydrOXYzine (ATARAX) tablet 50 mg oral Q4H PRN lactulose (CHRONULAC) 20 gram/30 mL solution 30 mL oral Q6H PRN losartan (COZAAR) tablet 50 mg oral DAILY magnesium hydroxide (MILK OF MAGNESIA) 400 mg/5 mL suspension 30 mL oral Daily PRN magnesium oxide (MAG-OX) tablet 400 mg oral DAILY multivitamin (FLINTSTONES) chewable tablet 2 tablet oral DAILY pantoprazole (PROTONIX) tablet 40 mg oral BID senna (SENOKOT) tablet 1 tablet oral AT BEDTIME PRN sodium chloride 0.9 % flush 3 mL intravenous Q8H thiamine (VITAMIN B1) tablet 100 mg oral DAILY REVIEW OF SYSTEMS: Complete 10-point ROS performed with pertinent positives and negatives as per subjective. General Exam: General appearance: alert, cooperative, no distress Skin: Skin color, temperature, turgor normal. No rashes or lesions HEENT: NC/AT, no oral lesions. Lungs: Breathing comfortably on room air Extremities: all extremities warm. Mild lower extremity edema Neurological Exam: Mental Status/Language: Alert and oriented to person, place, time, and reason for presentation, speech fluent, no aphasia or dysarthria, content appropriate. Cranial Nerves: Visual menard full, pupils round and reactive, EOMI without nystagmus, normal facial sensation and symmetry, tongue midline, palate elevates, shoulder shrug strong Motor: Normal muscle bulk and supple tone. No abnormal spontaneous movements. No rest or action tremor. Strength 5/5 bilateral UE and LE. Reflexes: DTRs 2/4 throughout, toes down bilaterally Sensation: Intact to vibration, light touch and pin prick symmetrically and bilaterally. Cerebellar: Finger to nose intact bilaterally. Gait: normal gait, normal tandem NEUROIMAGING STUDIES: CT head 08/15/2018: marked global atrophy with hydrocephalus ex vacuo ASSESSMENT: Alonzo Urbina is a 63 y.o. male with PMH of Hep C, alcoholic liver cirrhosis s/p TIPS, substance abuse (alcohol and cocaine), who is currently admitted to [facility] with suicidal ideation. Neurology is consulted for headache which he developed 3 weeks ago. ?? His headache is severe with associated phonophobia and photophobia. Although he does not have a previous diagnosis of migraine, this current headache is migrainous in quality. He cannot recall whether the blow to his head precipitated the headache, but he thinks that the headache worsened after the blow to his head. Therefore this headache may be a post-traumatic or post- concussive headache; these are typically treated similarly to migraine and also typically resolve. Of note, the last time thepatient had headaches was following a concussion at age 14. Would proceed with treatment as if thiswere a migraine, with abortive medications. His headache temporarily responded to IV compazine, Mg, NS. He also improved temporarily down to 3/10 with occipital nerve block. However he continues to have an 8/10 headache. Recommend DHE infusions as next step. PLAN: Recommend initiating DHE for migraine abortive: - Check pre-infusion ECG - Check and record peripheral pulses before starting each infusion. If pulses absent or significantly diminished after starting infusion, stop infusion. - Check vital signs 15 mins after infusion started -Give 1 mg DHE q8 hrs for a total of up to 9 doses Continue daily vitamins: - Coenzyme Q10 daily - Magnesium 400 mg daily (most common side effect is loose stool) Patient staffed with Dr. Fierro on 08/21/18 Marianna Walker MD PGY2 Neurology Associated attestation - Blake Fierro MD PhD - 08/22/2018 0742 EDT Attestation statement: I saw and examined the patient with the resident/fellow. I agree with the findings and plan of care documented in the resident's/fellow's note. * Mahnaz Felix - 08/21/2018 1222 EDT Medical Student Inpatient Psychiatry Daily Progress Note Date of Service: 08/21/2018 Admit Date: 08/09/2018 Hospital day: LOS: 12 days Legal Status: Legal status: Voluntary Observation Level: Observation / visual check: Q 15 minutes (frequent) Locus/Risk of Harm: Current locus of harm: 3 Reason for Admission/Chief Complaint: SI Clinical Update/24-hour Events: Alonzo came to his care meeting with a list of logistical items he was working on, from living arrangements to a ride when he is discharged. Alonzo is grateful for this hospitalization, and sees it as a chance to repair the mess he has made of his life. Alonzo admits that he has continual suicidal thoughts When I get out, I know I will want to kill myself. However, he agrees he will not likely act on these, which demonstrates self-awareness. Alonoz asked about his future court date, was anxiousabout how he would be able to complete his required community service, and how he could move his belongings into the apartment his landlord is holding for him. Review of Systems: (need 2 systems; may include sleep, appetite, medication side-effects) Patient complains of ongoing headache (10 at noon today), for which neurology has been consulted.No changes in vision or hearing, cough, rhinorrhea, CP, SOB, abdominal pain, N/V/D, constipation, myalgias/arthralgias, paraesthesias. Mental Status Exam: (need at least 9 findings) Alonzo is a 63 y.o. man appearing stated age, dressed in collared shirt and khaki pants, appropriate grooming and hygiene. Cooperative and engaged during interview. No psychomotor abnormalities observed. Speech is normal rate, rhythm, and volume. Appropriate eye contact. Alonzo says he is having a good day today. I got a lot accomplished this weekend. Affect is eager, and slightly anxious. Thought content notable for future-thinking and problem-solving. Alonzo admits that he has continual suicidal thoughts. Denies HI. Denies AVH. Does not appear to be responding to internal stimuli. Thought process is coherent, linear, fairly logical, goal-directed. Cognition not formally tested but appears grossly intact. Insight and judgment are fair. He is building a therapeutic relationship with his care team, and willing to engage in his treatment. Physical Exam: BP 112/56 (BP Cuff Location: Right arm, Patient Position: Sitting) Pulse 59 Temp 37 ??C (98.6 ??F) (Temporal) Resp 16 Ht 157.5 cm (62) Wt 80.3 kg (177 lb) SpO2 97% BMI 32.37 kg/m?? Data Review: Labs: No results found for this or any previous visit (from the past 24 hour(s)). Assessment/Formulation: (include vol/invol, mode of transport to hosp, who referred, risk to self/others) Alonzo Urbina is a 63 y.o. year old /woman who has been on this unit for 11 days. He reports thathe had a good weekend, having taken care of logistics pertinent to his discharge. He continues tohave suicidal thoughts, but admits he will try not to act on them. He was willing to learn ways to manage these thoughts. The care team recommended an inpatient 28-day Substance Abuse Program upon discharge, and Alonzo was amenable to the idea. Diagnostic Impression w/ Differential Diagnosis Psychiatric Diagnoses (including Personality Traits/Disorders): Other Medical Conditions: Past Medical History: Diagnosis Date ??? Anemia ??? Chronic back pain ??? Chronic kidney disease ??? Cirrhosis of liver (HCC-CMS) ??? Colon polyp ??? Depression ??? Esophageal varices (HCC-CMS) ??? GIB (gastrointestinal bleeding) ??? Hepatitis C ??? Leg numbness ??? Mental disorder ??? Pancreatitis Plan: 1. Social Work will look into Substance Abuse Program to enter upon discharge. 2. Order a 4 hour pass in order for Alonzo to move his belongings from one apartment to another in [facility]. Alonzo will need to arrange transportation and people to help move his things. 3. Neurology has been consulted about the headache. An order for a DHE infusion is pending. Observation Level: Observation / visual check: Q 15 minutes (frequent) Locus/Risk of Harm: Current locus of harm: 3 Discharge Plan: Discharge planning per multidisciplinary team rounds. Mahnaz Felix, MS3 08/21/2018 12:25 * Sonali Mills MD - 08/21/2018 0817 EDT Inpatient Psychiatry Daily Progress Note Date of Service: 08/21/2018 Admit Date: 08/09/2018 Hospital day: LOS: 12 days Legal Status: Legal status: Voluntary Observation Level: Observation / visual check: Q 15 minutes (frequent) Locus/Risk of Harm: Current locus of harm: 3 Reason for Admission/Chief Complaint: SI Clinical Update/24-hour Events: Events of past 24 hours reviewed with multidisciplinary team and chart review. No significant events. Sleep: Slept total 4.5 o/n -7.5 hours /24 hours. Appetite: better. Medication side effects: Denies PRNs: tylenol- headache, atarax- anxiety Groups: not any over the weekend- went to the morning check-in today. Pain: headache- killing me. Per chart review- Alonzo was offered intranasal lidocaine swabs that he declined.. Per evening notesyesterday he had no headache on that shift. Also endorsed SI if discharged but not intent to George, MELY Curiel dated 08/20/2018 Patient stated that I'd be lying if I told you I wasn't thinking about killing myself when I'm discharged. But that doesn't mean that I'd act on it. Expressed some shame. Per RN report he made a phone call to his landlord and was assured that he will hold the apartment for Alonzo. From MS3 Mahnaz's note: Alonzo came to his care meeting with a list of logistical items he was working on, from living arrangements to a ride when he is discharged. . Alonzo admits that he has continual suicidal thoughts When I get out, I know I will want to kill myself. However, he agrees he will not likely act on these,which demonstrates self-awareness. Alonzo asked about his future court date, was anxious about how he would be able to complete his required community service, and how he could move his belongings into the apartment his landlord is holding for him. Initially he hoped to be discharged in time to attend his court date this Tuesday - but was reassured to find out that JIMENEZ Crespo can call in to postpone his court date. Alonzo expressed interest in CBT but also endorsed being open to any plan that is suggested by the team including inpatient rehab. States that since he has made a mess of everything he will go by the team's recommendations - its my last chance .... he jokes. He is able to acknowledge that he still has SI but is now able to joke about it and handle/manage it significantly better than last week. He hopes to continue working on his recovery- I urge him to go to groups. Current Facility-Administered Medications: acetaminophen (TYLENOL) tablet 500 mg oral Q6H PRN citalopram (CELEXA) tablet 20 mg oral DAILY docusate sodium (COLACE) capsule 100 mg oral Daily PRN hydrOXYzine (ATARAX) tablet 50 mg oral Q4H PRN lactulose (CHRONULAC) 20 gram/30 mL solution 30 mL oral Q6H PRN losartan (COZAAR) tablet 50 mg oral DAILY magnesium hydroxide (MILK OF MAGNESIA) 400 mg/5 mL suspension 30 mL oral Daily PRN magnesium oxide (MAG-OX) tablet 400 mg oral DAILY multivitamin (FLINTSTONES) chewable tablet 2 tablet oral DAILY pantoprazole (PROTONIX) tablet 40 mg oral BID senna (SENOKOT) tablet 1 tablet oral AT BEDTIME PRN sodium chloride 0.9 % flush 3 mL intravenous Q8H thiamine (VITAMIN B1) tablet 100 mg oral DAILY Review of Systems: As above Mental Status Exam: Well-developed, well-nourished middle aged man, appears stated age, casually dressed in blue collared shirt and pants, neat and well groomed . Good eye contact. No abnormal/involuntary movements. Speech unremarkable for rhythm, tone, or volume or rate. Stated mood is anxious, and affect is congruent, anxious at times and restricted but improved range- able to smile several times. Thought process is linear with tight associations. Thought content is reality based , some future-orientation- talked to landlord to be able to keep his apartment, Will make call to Social security again today. No overt paranoia, obsessions, or delusions. Denies SI or intent in the hospital and acknowledges diminishing intent outside/after discharge. Denies HI or perceptual disturbances. Patient is alert and oriented to self, person and place. Language, cognition, and memory are grossly intact. Insight is fair. Judgement is improving- engaging more, taking positive steps to solve some of the challenges facing him. endorsed having had recent SI with plan ( injecting mouth wash in his IV) although he did not act on it( good judgement) Physical Exam: BP (!) 146/67 Pulse 54 Temp 36.9 ??C (98.4 ??F) (Temporal) Resp 16 Ht 157.5 cm (62) Wt 80.4 kg (177 lb 3.2 oz) SpO2 97% BMI 32.41 kg/m?? Data Review: Labs: No results found for this or any previous visit (from the past 24 hour(s)). Assessment/Formulation: Alonzo Urbina is a 63 y.o. year old man with a PMH of Hep C, alcoholic liver cirrhosis and a past psychiatric history of substance use disorder (alcohol- active, cocaine - active), 3 previous rehabilitation stays but no previous psychiatric hospitalization who presents with SI in the context of several psychosocial stressors including loss of diability pay and getting 2 nd DUI yesterday. The patient's presentation is most consistent with the diagnosis of moderate to severe depression, polysubstance use disorder and cluster B traits. Today Alonzo endorses continued SI outside the hospital but acknowledges that his intent is only intermittent. He also has taken some concrete steps to address his current issues and came to the meeting today with a list of issues he wanted to discuss- improved motivation and organization. He also attended a group today and expressed interest in CBT after discharge but was also open to a referral to inpatient rehabilitation.. He was encouraged to attend more groups with the aim of improving his coping skills. However he still continues to have SI and has endorsed having had a recent plan ( injecting mouth wash in his IV) although he did not act on it. He is therefore still at a risk to himself and will benefit from continued hospitalization for safety, Further stabilization, medication management- especially ongoing evaluation and treatment of his headache, learning of coping skills and establishment of OP resources. Alonzo Urbina meets criteria for acute level of care. Diagnostic Impression w/ Differential Diagnosis Psychiatric Diagnoses (including Personality Traits/Disorders):unspecified depression r/o MDD vs substance induced vs adjustment disorder, substance use disorder- active both alcohol and cocaine., r/o cluster B traits. Other Medical Conditions: Hepatitis C, cirrhosis s/p TIPS, duodenal ulcer s/p embolization, s/p back surgery( scoliosis) Plan: NURYS 3, frequent obs. - Encourage self care thorough attention to ADLs and exercise as tolerated - encourage groups Substance use disorder: Substance use/ Recovery group Depression/Anxiety - Continue Citalopram 20 mg daily. - Continue hydroxyzine 25 mg q 4 prn. Headache: Neurology consulted- appreciate recs -Continue tylenol -Continne CoQ 10 daily - Continue Magnesium 400 mg daily Recommended NOAH drip- neurology will help with this. ( will put alonzo on constants while on IV) Cirrhosis (s/p TIPS in 2016- transjugular intrahepatic portosystemic shunt): Lactulose 30 mg q 8 prn.. D/c nadolol.- per Gastroenterology curbside/recomendation d/c as he is s/p TIPS. Duodenal Ulcer (s/p GI bleed requiring transfusion June 2018, s/p embolization of ulcer blood supply) Avoid NSAIDs Protonix 40mg BID HTN: Losartan 50 mg daily Discharge Plan: Discharge planning per multidisciplinary team rounds. NORBERTO Miranda 08/21/2018 8:17 PGY2 Residential Driver Attending Attestation: I saw and evaluated the patient today. Treatment plan reviewed with the patient and team. I agree with (and/or have edited in blue text) the findings and plan of care as documented in the resident's/PA/medical student's note. Total time spent directly with patient was 25 minutes of which 15 minuteswas spent in counseling (re:symptoms and treatment plan as in note above) and/or in coordination ofcare with the multidisciplinary team. SONALI MILLS MD Attending Psychiatrist [facility] Pager [phone] * Arturo Keller MD, MD - 08/20/2018 7532 EDT ATTENDING LEAF CONDITIONER NOTE REASON FOR HOSPITALIZATION: HOSPITAL DAY: LOS: 11 days INTERIM HISTORY: Case discussed with RN and recent record reviewed. Nursing report: Slept 6 h, 12.25 h per 24 h. Isolative. Hopeless. No group. Hydroxyzine, APAP for pain. Headache has continued. ?? S: I slept pretty good last night. Still got the headache. Depression: about 10 of 10 in intensity (10 = severe). Anxiety: about 8 of 10 (10 = severe). Suicidal ideation: None. Aud/vis hallucinations: None Violent ideation: None. Problems with medications: No. ?? EXAM: Blood pressure (!) 146/67, pulse 54, temperature 36.9 ??C (98.4 ??F), temperature source Temporal, resp. rate 16, height 157.5 cm (62), weight 80.4 kg (177 lb 3.2 oz), SpO2 97 %. ?? Gen: WD adult, lying down but more engageable today. ?? MSE: Reasonable eye contact, alert and participatory. Speech normal in volume, rate, articulation; reflecting his distress in tone. Psychomotor reduced; no abnl movements noted. Mood as above. Affectrestricted. Thought process generally linear. Content as above. ?? No radiology, cardiology data. Labs: AST 26, ALT 23. Creat 0.74. Lab Results Component Value Date WBC 2.32 (L) 08/20/2018 HGB 9.3 (L) 08/20/2018 HCT 29.5 (L) 08/20/2018 MCV 80 (L) 08/20/2018 PLT 121 (L) 08/20/2018 Hemoglobin, platelets improving a bit. WBC sagging a bit more over time. ?? ASSESSMENT: 1--Major depressive episode. 2--Severe headache, responsive to Neurology service migraine protocol but improvement not sustained. 3--Other dx: Hepatitis C, cirrhosis s/p TIPS, duodenal ulcer s/p embolization, s/p back surgery( scoliosis). WBC somewhat low, as above; Hbg, plt improving a bit. 4--Hx alcohol and cocaine use disorders. ?? Mr Urbina was offered an intranasal lidocaine block by APS yesterday, declined. See also neurology consult note of 08/19/18. ?? PLAN: 1--Pain management, migraine headaches: Please refer to my note of 08/19/18 for developments of last2 days. In brief: --Per Chirag Kapadia RN, APS offered Mr Urbina an interim measure (not pallatosphenoid injection, butlidocaine swabs inserted intranasally), which he declined. The injection remains an option. --Dr Ayers called 08/19/18. On her exam, Mr Urbina expressed much less distress than he had earlier today. No acute migraine Rx recommended. Limit risk related to meds, ie, APAP < 2 g per 24 h (already done); limit valproate. 2--Otherwise, [resent program of medications and therapeutic activities as tolerated. Neurology and APS input much appreciated. This is a complex case. ? Current??Medications Current Facility-Administered Medications Medication Dose Route Frequency Provider Last Rate Last Dose ??? acetaminophen (TYLENOL) tablet 500 mg 500 mg oral Q6H PRN Katina Garzon MD 500 mg at 08/19/18912 ??? citalopram (CELEXA) tablet 20 mg 20 mg oral DAILY Sonali Mills MD 20 mg at 08/19/1813 ??? docusate sodium (COLACE) capsule 100 mg 100 mg oral Daily PRN Sania Sifuentes MBBS ??? hydrOXYzine (ATARAX) tablet 50 mg 50 mg oral Q4H PRN Katina Garzon MD 50 mg at 08/19/18 0914 ??? lactulose (CHRONULAC) 20 gram/30 mL solution 30 mL 30 mL oral Q6H PRN Sonali Mills MD 30 mLat 08/11/18 1727 ??? losartan (COZAAR) tablet 50 mg 50 mg oral DAILY Sonali Mills MD 50 mg at 08/19/18912 ??? magnesium hydroxide (MILK OF MAGNESIA) 400 mg/5 mL suspension 30 mL 30 mL oral Daily PRN Sania Sifuentes MBBS ??? magnesium oxide (MAG-OX) tablet 400 mg 400 mg oral DAILY Zeinab Choudhary MD 400 mg at 08/19/18913 ??? multivitamin (FLINTSTONES) chewable tablet 2 tablet 2 tablet oral DAILY Zeinab Choudhary MD 2 tablet at 08/18/182026 ??? pantoprazole (PROTONIX) tablet 40 mg 40 mg oral BID Sonali Mills MD 40 mg at 08/19/18912 ??? senna (SENOKOT) tablet 1 tablet 1 tablet oral AT BEDTIME PRN Sania Sifuentes MBBS ??? sodium chloride 0.9 % flush 3 mL 3 mL intravenous Q8H Sania Sifuentes MBBS 3 mL at 08/19/18916 ??? thiamine (VITAMIN B1) tablet 100 mg 100 mg oral DAILY Sania Sifuentes MBBS 100 mg at 08/19/18912 ? A Praful Keller MD, MPH Attending Psychiatrist day habilitation supervisor * Micaela Ayers MD - 08/19/2018 1413 EDT BRIEF PROGRESS NOTE: Saw patient at the request of Dr. Praful Keller. Of note, a treatment plan was in place as of Tuesday, 08/18 per the note from that day (i.e., SPG block). APS was consulted, however, the patient declinedthe recommended therapeutic option, because he was afraid it wouldn't work. Explained to Mr. Urbina that his pain is very difficult to treat, in part due to other medical problems including cirrhosis s/p TIPS c/b varices and GIB, in addition to history of CKD, although renal function is normal at this time. I also explained that he would probably not be pain free, and he expressed understanding, stating that he would just want the pain to be under control. He added that he did not want to see people, no specifically because of the physical pain, but more related to the stress. Exam unchanged from that documented on 08/15 and 08/18. Sleeping quietly in bed, no new symptoms, just pain similar to that prior to occipital nerve block. Stated pain 7-11/18. From a medical standpoint, would avoid NSAIDs in patient with history of prior GIB and cirrhosis. Would avoid frequent valproic acid in a patient with history of liver cirrhosis. Would limit acetaminophen to 2g in a 24 hour period in a patient with liver cirrhosis. No known heart disease per patient. QTc 416 on 06/24/2018. Could consider haloperidol + hydroxizine if no additional contraindications (to be determined by primary team), although there have been postmarketing surveillance reports ofassociation with liver issues with haloperidol; seems like a reasonable option as he has had haloperidol in the past without adverse effect. However, would caution that suspect a large component of his pain is intrinsically related to his psychosocial stressors. Unfortunately, abortive treatment for migraine will unlikely provide sustained relief from this contribution to his pain. Patient can beseen on Tuesday, by Dr. Fierro, who is also a headache specialist, and will be the attending on service if you require another opinion. Discussed with attendings, Dr. Zaira Morillo and Dr. Joanie Aviles. Thoughts relayed to Dr. Keller who has requested this re-evaluation. Micaela Ayers MD Neurology PGY-3 #[id number] (#[id number] afterhours and weekends) * Arturo Keller MD, MD - 08/19/2018 0732 EDT ATTENDING LEAF CONDITIONER NOTE REASON FOR HOSPITALIZATION: HOSPITAL DAY: LOS: 10 days INTERIM HISTORY: Case discussed with RN and recent record reviewed. Nursing report: Very hard to control headaches; partial relief only with analgesic program. Intensity 8 >>> 5 of 10. No SI, HI, AVH. Anxious, isolative. Ketamine infusion not feasible to be given on this unit. Slept > 5 h last night, > 10 h in 24 h. Stating his needs. Med adherent. S: Mood: still the same; headache, anxiety! Slept: bad. Pain: 8 out of 10 Depression: 8 of 10 in intensity (10 = severe). Anxiety: 8 of 10 (10 = severe). Suicidal ideation: not here. Aud/vis hallucinations: None Violent ideation: No, I never have that. Plan for day: just survive this headache for right now. No medication side effects reported or observed. Reasonable adherence. Prescribed program below. EXAM: BP (!) 143/66 (BP Cuff Location: Left arm, Patient Position: Sitting) Pulse 54 Temp 36.7 ??C (98.1 ??F) (Temporal) Resp 14 Ht 157.5 cm (62) Wt 80.4 kg (177 lb 3.2 oz) SpO2 98% BMI 32.41 kg/m?? Gen: WD adult, lying in bed, awake but in pain. MSE: Minimal eye contact, alert and participatory. Speech normal in volume, rate, articulation; reflecting his distress in tone. Psychomotor reduced; no abnl movements noted. Mood as above. Affect restricted. Thought process generally linear. Content as above. No new labs, radiology, cardiology data. ASSESSMENT: 1--Major depressive episode. 2--Severe headache, responsive to Neurology service migraine protocol but improvement not sustained. 3--Other dx: Hepatitis C, cirrhosis s/p TIPS, duodenal ulcer s/p embolization, s/p back surgery( scoliosis). 4--Hx alcohol and cocaine use disorders. PLAN: 1--Pain management: Per MELY Spears) APS (Acute Pain Management Service) had asked for a call back ifthe Rx he had received did not hold, for potential pallatosphenoid block. RN will notify. 2--D/w Neurology service (Maureen Ayers MD), asked for him to be on their service active list to be seen today, would appreciate any other recommendations. She will review record, etc, get back to me. 3--Otherwise, [resent program of medications and therapeutic activities as tolerated. 4--Check CBC, creat, AST, ALT tomorrow. ADDENDUM: 1--Per Chirag Kapadia RN, APS offered Mr Urbina an interim measure (not pallatosphenoid injection, but lidocaine swabs inserted intranasally), which he declined. The injection remains an option. 2--Dr Ayers called. On her exam, Mr Urbina expressed much less distress than he had earlier today. No acute migraine Rx recommended. Limit risk related to meds, ie, APAP < 2 g per 24 h (already done); limit valproate. Neurology and APS input much appreciated. This is a complex case. Current Facility-Administered Medications Medication Dose Route Frequency Provider Last Rate Last Dose ??? acetaminophen (TYLENOL) tablet 500 mg 500 mg oral Q6H PRN Katina Garzon MD 500 mg at 08/19/18912 ??? citalopram (CELEXA) tablet 20 mg 20 mg oral DAILY Sonali Mills MD 20 mg at 08/19/18912 ??? docusate sodium (COLACE) capsule 100 mg 100 mg oral Daily PRN Sania Sifuentes MBBS ??? hydrOXYzine (ATARAX) tablet 50 mg 50 mg oral Q4H PRN Katina Garzon MD 50 mg at 08/19/18913 ??? lactulose (CHRONULAC) 20 gram/30 mL solution 30 mL 30 mL oral Q6H PRN Sonali Mills MD 30 mLat 08/11/181726 ??? losartan (COZAAR) tablet 50 mg 50 mg oral DAILY Sonali Mills MD 50 mg at 08/19/18912 ??? magnesium hydroxide (MILK OF MAGNESIA) 400 mg/5 mL suspension 30 mL 30 mL oral Daily PRN Sania Sifuentes MBBS ??? magnesium oxide (MAG-OX) tablet 400 mg 400 mg oral DAILY Zeinab Choudhary MD 400 mg at 08/19/18913 ??? multivitamin (FLINTSTONES) chewable tablet 2 tablet 2 tablet oral DAILY Zeinab Choudhary MD 2 tablet at 08/18/182026 ??? pantoprazole (PROTONIX) tablet 40 mg 40 mg oral BID Sonali Mills MD 40 mg at 08/19/18912 ??? senna (SENOKOT) tablet 1 tablet 1 tablet oral AT BEDTIME PRN Sania Sifuentes MBBS ??? sodium chloride 0.9 % flush 3 mL 3 mL intravenous Q8H Sania Sifuentes MBBS 3 mL at 08/19/18916 ??? thiamine (VITAMIN B1) tablet 100 mg 100 mg oral DAILY Sania Sifuentes MBBS 100 mg at 08/19/18 0913 Total attending floor time approx 40 min, approx 25 in treatment planning and coordination of care,including serial discussions with hospital staff pharmacist (Chirag Bass), d/w Dr Ayers, record review and related matters. Arturo Keller MD, MPH Attending Psychiatrist day habilitation supervisor * Lloyd oLu MD, MD - 08/18/2018 1705 EDT APS called for evaluation for sphenopalatine nerve block in context of headache. Per the consult request, he has been admitted inpatient for 10 days with suicidal ideations. He has a history of alcohol and cocaine abuse and is reported to be an active user of both. He also has depression and is being evaluated and treated by the psych service for this. An occipital nerve block was attempted with temporary relief but the headache pain is back to 8/10. APS will evaluate him and consider a spenopalatine nerve block either this evening or tomorrow 08/19. Lloyd Lou MD * Joanie Aviles DO - 08/18/2018 1636 EDT [facility] CONSULT PROGRESS NOTE PATIENT NAME: Alonzo Urbina PCP: Laurie Wiggins DATE OF ADMISSION: 08/09/2018 DATE OF SERVICE: 08/18/2018 CODE STATUS: Limitation of Treatment PRIMARY DIAGNOSIS: Migraine??with status migrainosus/post-traumatic headache OVERNIGHT EVENTS/SUBJECTIVE: -patient's headache decreased to 3 out of 10 following occipital nerve block but then gradually increased back to 7-8/10 MEDICATIONS: Current Facility-Administered Medications: acetaminophen (TYLENOL) tablet 500 mg oral Q6H PRN citalopram (CELEXA) tablet 20 mg oral DAILY docusate sodium (COLACE) capsule 100 mg oral Daily PRN hydrOXYzine (ATARAX) tablet 50 mg oral Q4H PRN lactulose (CHRONULAC) 20 gram/30 mL solution 30 mL oral Q6H PRN losartan (COZAAR) tablet 50 mg oral DAILY magnesium hydroxide (MILK OF MAGNESIA) 400 mg/5 mL suspension 30 mL oral Daily PRN magnesium oxide (MAG-OX) tablet 400 mg oral DAILY multivitamin (FLINTSTONES) chewable tablet 2 tablet oral DAILY pantoprazole (PROTONIX) tablet 40 mg oral BID senna (SENOKOT) tablet 1 tablet oral AT BEDTIME PRN sodium chloride 0.9 % flush 3 mL intravenous Q8H thiamine (VITAMIN B1) tablet 100 mg oral DAILY REVIEW OF SYSTEMS: Complete 10-point ROS performed with pertinent positives and negatives as per subjective. General Exam: General appearance: alert, cooperative, no distress Skin: Skin color, temperature, turgor normal. No rashes or lesions HEENT: NC/AT, no oral lesions. Lungs: Breathing comfortably on room air Extremities: all extremities warm. Mild lower extremity edema Neurological Exam: Mental Status/Language: Alert and oriented to person, place, time, and reason for presentation, speech fluent, no aphasia or dysarthria, content appropriate. Cranial Nerves: Visual menard full, pupils round and reactive, EOMI without nystagmus, normal facial sensation and symmetry, tongue midline, palate elevates, shoulder shrug strong Motor: Normal muscle bulk and supple tone. No abnormal spontaneous movements. No rest or action tremor. Strength 5/5 bilateral UE and LE. Reflexes: DTRs 2/4 throughout, toes down bilaterally Sensation: Intact to vibration, light touch and pin prick symmetrically and bilaterally. Cerebellar: Finger to nose intact bilaterally. Gait: normal gait, normal tandem NEUROIMAGING STUDIES: CT head 08/15/2018: marked global atrophy with hydrocephalus ex vacuo ASSESSMENT: Alonzo Ubrina is a 63 y.o. male with PMH of Hep C, alcoholic liver cirrhosis s/p TIPS, substance abuse (alcohol and cocaine), who is currently admitted to [facility] with suicidal ideation. Neurology is consulted for headache which he developed 3 weeks ago. ?? His headache is severe with associated phonophobia and photophobia. Although he does not have a previous diagnosis of migraine, this current headache is migrainous in quality. He cannot recall whether the blow to his head precipitated the headache, but he thinks that the headache worsened after the blow to his head. Therefore this headache may be a post-traumatic or post- concussive headache; these are typically treated similarly to migraine and also typically resolve. Of note, the last time thepatient had headaches was following a concussion at age 14. Would proceed with treatment as if thiswere a migraine, with abortive medications. His headache temporarily responded to IV compazine, Mg, NS. He also improved temporarily down to 3/10 with occipital nerve block. As occipital nerve block was briefly helpful, would recommend considering sphenopalatine ganglion block. Ketamine is not feasible on Shep 3 and also likely not ideal in a patient with history of cocaine abuse prior to hospitalization. PLAN: Consider consulting APS for sphenopalatine ganglion block or other migraine abortive modalities Continue daily vitamins: - Coenzyme Q10 daily - Magnesium 400 mg daily (most common side effect is loose stool) Staffed with neurology attending Dr. Aviles on rounds 08/18/18 Marianna Walker MD PGY2 Neurology NEUROLOGY INPATIENT SUPERVISORY NOTE I personally saw, examined and evaluated Mr.James Denise Urbina on 08/18/[address] Walker and the rest of the inpatient Vascular Neurology team. I agree with Dr. Walker history, examination, assessment and plan except as modified below. Please refer to her note as above for further details. Joanie Aviles DO 08/18/18 20:59 * Venkata Telles LICSW - 08/18/2018 1433 EDT Social Work Progress Note Intervention/Service: Coordination of care and Discharge planning JIMENEZ assisted Alonzo with contacting his [employer] in an effort to get his Debit card information to get his car out of the impound. The [employer] was only able to give routing number and account number for a electronic payment. Unfortunately the [employer] could not process a payment in that way. [facility] Evonne Ya who agreed to cover cost of [employer]. Alonzo was very appreciative of the support. CISCO Guillen * Venkata Telles LICSW - 08/18/2018 0553 EDT Social Work Progress Note Intervention/Service: Coordination of care JIMENEZ met with Alonzo and made several calls to his [employer], the [employer] that has his car, and SW manager strategy. Eventually is was decided that [facility] would cover the cost of getting Alonzo' car out of impound. Alonzo was very appreciative. CISCO Guillen * Sonali Mills MD - 08/18/2018 0852 EDT Inpatient Psychiatry Daily Progress Note Date of Service: 08/18/2018 Admit Date: 08/09/2018 Hospital day: LOS: 9 days Legal Status: Legal status: Voluntary Observation Level: Observation / visual check: Q 15 minutes (frequent) Locus/Risk of Harm: Current locus of harm: 3 Reason for Admission/Chief Complaint: SI Clinical Update/24-hour Events: Events of past 24 hours reviewed with multidisciplinary team and chart review. No significant events. Sleep: Slept total 5.75 hours /24 hours. Appetite: better. Medication side effects: Denies PRNs: tylenol- headache, atarax- anxiety Groups: not any in 24 hrs Pain: headache 8/10 today- down to 4/10 after tylenol. Neurology performed an occipital block yesterday afternoon and his headache decreased to a 4/10 after this procedure. However this morning his headache is back to a 8/10. He was seen again by neurology today and they recommended a sphenopalatine block with APS that he was amenable to. Alonzo continues to have SI but feels safe int he hospital. He does feel that he needs to get out more and since he has mostly been isolating to his room we set the goal for him to attend at least 1 group a day over the weekend. He expressed relief when informed that the hospital would be able to help him recover his car from the storage. Current Facility-Administered Medications: acetaminophen (TYLENOL) tablet 500 mg oral Q6H PRN citalopram (CELEXA) tablet 20 mg oral DAILY docusate sodium (COLACE) capsule 100 mg oral Daily PRN hydrOXYzine (ATARAX) tablet 50 mg oral Q4H PRN lactulose (CHRONULAC) 20 gram/30 mL solution 30 mL oral Q6H PRN losartan (COZAAR) tablet 50 mg oral DAILY magnesium hydroxide (MILK OF MAGNESIA) 400 mg/5 mL suspension 30 mL oral Daily PRN magnesium oxide (MAG-OX) tablet 400 mg oral DAILY multivitamin (FLINTSTONES) chewable tablet 2 tablet oral DAILY pantoprazole (PROTONIX) tablet 40 mg oral BID senna (SENOKOT) tablet 1 tablet oral AT BEDTIME PRN sodium chloride 0.9 % flush 3 mL intravenous Q8H thiamine (VITAMIN B1) tablet 100 mg oral DAILY Review of Systems: As above Mental Status Exam: Well-developed, well-nourished middle aged man, appears stated age, casually dressed, neat and wellgroomed-sitting on bed in dimly lit room. Good eye contact. No abnormal/involuntary movements. Speech unremarkable for rhythm, tone, or volume or rate. Stated mood is deperessed and anxious- more depressed than anxious, and affect is congruent, dysphoric, blunted and constricted. Thought process is linear with tight associations. Thought content is reality based though not fully future-oriented. Perseverating on headache. No overt paranoia, obsessions, or delusions. Denies SI or intent in thehospital - expresses feeling safe over the weekend. Denies HI or perceptual disturbances. Patient is alert and oriented to self, person and place. Language, cognition, and memory are grossly intact. Insight is fair. Judgement is fair. Physical Exam: BP (!) 143/66 (BP Cuff Location: Left arm, Patient Position: Sitting) Pulse 54 Temp 36.7 ??C (98.1 ??F) (Temporal) Resp 14 Ht 157.5 cm (62) Wt 80.4 kg (177 lb 3.2 oz) SpO2 98% BMI 32.41 kg/m?? Data Review: Labs: No results found for this or any previous visit (from the past 24 hour(s)). Assessment/Formulation: Alonzo Urbina is a 63 y.o. year old man with a PMH of Hep C, alcoholic liver cirrhosis and a past psychiatric history of substance use disorder (alcohol- active, cocaine - active), 3 previous rehabilitation stays but no previous psychiatric hospitalization who presents with SI in the context of several psychosocial stressors including loss of diability pay and getting 2 nd DUI yesterday. The patient's presentation is most consistent with the diagnosis of moderate to severe depression, polysubstance use disorder and cluster B traits. Today Alonzo continued to endorse depressed mood and to endorse SI but to deny any intent while in the hospital. He was relieved to learn that his car could be recovered and this had been a significant source of anxiety/stress for him- he has now set a goal of attending groups daily. However he continues to be distressed by the intensity and constant nature of his headache. Neurology has recommended a Sphenopalatine block and since this is administered by anaesthesia/acute pain service an APS consult was placed. They will likely come and see Alonzo tomorrow. Given the patient's continued SI and hopelessness he will benefit from continued hospitalization for safety, Further stabilization, medication management- especially ongoing evaluation and treatment of his headache, learning of coping skills and establishment of OP resources. Alonzo Urbina meets criteria for acute level of care. Diagnostic Impression w/ Differential Diagnosis Psychiatric Diagnoses (including Personality Traits/Disorders):unspecified depression r/o MDD vs substance induced vs adjustment disorder, substance use disorder- active both alcohol and cocaine., r/o cluster B traits. Other Medical Conditions: Hepatitis C, cirrhosis s/p TIPS, duodenal ulcer s/p embolization, s/p back surgery( scoliosis) Plan: NURYS 3, frequent obs. - Encourage self care thorough attention to ADLs and exercise as tolerated - encourage groups Substance use disorder: Substance use/ Recovery group Depression/Anxiety - Continue Citalopram 20 mg daily. - Continue hydroxyzine 25 mg q 4 prn. Headache: Neurology consulted- appreciate recs -Continue tylenol -Continne CoQ 10 daily - Continue Magnesium 400 mg daily Acute pain service consulted. 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 D/c nadolol.- per Gastroenterology curbside/recomendation d/c as he is s/p TIPS. Duodenal Ulcer (s/p GI bleed requiring transfusion June 2018, s/p embolization of ulcer blood supply) Avoid NSAIDs Protonix 40mg BID HTN: Losartan 50 mg daily Discharge Plan: Discharge planning per multidisciplinary team rounds. NORBERTO Miranda 08/18/2018 8:52 PGY2 Residential Driver Attending Attestation: I saw and evaluated the patient today. Treatment plan reviewed with the patient and team. I agree with (and/or have edited in blue text) the findings and plan of care as documented in the resident's/PA/medical student's note. Total time spent directly with patient was 25 minutes of which 15 minuteswas spent in counseling (re:symptoms and treatment plan as in note above) and/or in coordination ofcare with the multidisciplinary team. SONALI MILLS MD Attending Psychiatrist [facility] Pager [phone] * Venkata Telles LICSW - 08/17/2018 1437 EDT Social Work Progress Note Intervention/Service: Coordination of care and Discharge planning Alonzo reported this morning that he had heard back from [employer]. Alonzo reports that they are going to pull his funding as a result of making too much money at his job. Alonzo was thinking maybe his landlord could help with his car but after thinking about it some more Alonzo is not open to that idea. Alonzo reported having a terrible headache so the meeting was cut short. SW will follow up. CISCO Guillen * Sonali Mills MD - 08/17/2018 0818 EDT Inpatient Psychiatry Daily Progress Note Date of Service: 08/17/2018 Admit Date: 08/09/2018 Hospital day: LOS: 8 days Legal Status: Legal status: Voluntary Observation Level: Observation / visual check: Q 15 minutes (frequent) Locus/Risk of Harm: Current locus of harm: 3 Reason for Admission/Chief Complaint: SI Clinical Update/24-hour Events: Events of past 24 hours reviewed with multidisciplinary team and chart review. No significant events. Sleep: Slept total 11hours /24 hours. Appetite: better. Medication side effects: Denies PRNs: tylenol- headache, atarax- anxiety Groups: not any in 24 hrs Pain: headache 11/18 today. Per Rn report - isolative, listening to pod cast and sleeping. Alonzo reports severe headache this morning- states the headache had subsided somewhat yesterday morning after the IVF and medication however it came back today about an hour after he woke up. He denies any change in the quality or location of headache. States he is hoping the occipital block that'splanned for this afternoon . He continues to express hopelessness about his current life situation. Endorses feeling safe in thehospital but not outside. Current Facility-Administered Medications: acetaminophen (TYLENOL) tablet 500 mg oral Q6H PRN citalopram (CELEXA) tablet 20 mg oral DAILY docusate sodium (COLACE) capsule 100 mg oral Daily PRN hydrOXYzine (ATARAX) tablet 50 mg oral Q4H PRN lactulose (CHRONULAC) 20 gram/30 mL solution 30 mL oral Q6H PRN losartan (COZAAR) tablet 50 mg oral DAILY magnesium hydroxide (MILK OF MAGNESIA) 400 mg/5 mL suspension 30 mL oral Daily PRN magnesium oxide (MAG-OX) tablet 400 mg oral DAILY multivitamin (FLINTSTONES) chewable tablet 2 tablet oral DAILY pantoprazole (PROTONIX) tablet 40 mg oral BID senna (SENOKOT) tablet 1 tablet oral AT BEDTIME PRN thiamine (VITAMIN B1) tablet 100 mg oral DAILY Review of Systems: As above Mental Status Exam: Well-developed, well-nourished middle aged man, appears stated age, casually dressed, neat and wellgroomed- walking around the room with a limp. Intermittent eye contact. Some generalized psychomotor slowing but no abnormal/involuntary movements. Speech unremarkable for rhythm, tone, or volume or rate. Stated mood is I can even think about that because of this headache, and affect is congruent, dysphoric, blunted and constricted. Thought process is linear with tight associations. Thought content is reality based though not fully future- oriented. Notable for several cognitive distortions hopelessness and helplessnes. No overt paranoia, obsessions, or delusions. Denies SI or intent in the hospital - expresses SI and intent outside. Denies HI or perceptual disturbances. Patient is alert and oriented to self, person and place. Language, cognition, and memory are grossly intact. Insight is fair. Judgement is Fair- continues to isolate to his room but does engage with his team. Physical Exam: BP 130/60 (BP Cuff Location: Right arm, Patient Position: Sitting) Pulse (!) 48 Comment: RN notified Temp 37.1 ??C (98.8 ??F) (Temporal) Resp 14 Ht 157.5 cm (62) Wt 80.4 kg (177 lb 3.2 oz) SpO2 97% BMI 32.41 kg/m?? Data Review: Labs: No results found for this or any previous visit (from the past 24 hour(s)). Assessment/Formulation: Alonzo Urbina is a 63 y.o. year old man with a PMH of Hep C, alcoholic liver cirrhosis and a past psychiatric history of substance use disorder (alcohol- active, cocaine - active), 3 previous rehabilitation stays but no previous psychiatric hospitalization who presents with SI in the context of several psychosocial stressors including loss of diability pay and getting 2 nd DUI yesterday. The patient's presentation is most consistent with the diagnosis of moderate to severe depression, polysubstance use disorder and cluster B traits. Today Alonzo presented with little change in his mood or suicidal ideation and was preoccupied with the intense /unrelenting headache. He expressed feeling disappointed because he had expected to sustain the relief he had in headache yesterday morning. Per my discussion with Dr. Aviles yesterday-Neurology will reassess him today and will potentially do a occipital nerve block. Given the patient's continued SI and hopelessness he will benefit from continued hospitalization for safety, Further stabilization, medication management- especially ongoing evaluation and treatment of his headache, learning of coping skills and establishment of OP resources. Alonzo Urbina meets criteria for acute level of care. Diagnostic Impression w/ Differential Diagnosis Psychiatric Diagnoses (including Personality Traits/Disorders):unspecified depression r/o MDD vs substance induced vs adjustment disorder, substance use disorder- active both alcohol and cocaine., r/o cluster B traits. Other Medical Conditions: Hepatitis C, cirrhosis s/p TIPS, duodenal ulcer s/p embolization, s/p back surgery( scoliosis) Plan: NURYS 3, frequent obs. - Encourage self care thorough attention to ADLs and exercise as tolerated - encourage groups Substance use disorder: Active [facility] monitoring protocol Substance use/ Recovery group- did not attend Depression/Anxiety - Continue Citalopram 20 mg daily. - Continue hydroxyzine 25 mg q 4 prn. 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 D/c nadolol.- per Gastroenterology curbside/recomendation d/c as he is s/p TIPS. Duodenal Ulcer (s/p GI bleed requiring transfusion June 2018, s/p embolization of ulcer blood supply) Avoid NSAIDs Protonix 40mg BID HTN: Losartan 50 mg daily Discharge Plan: Discharge planning per multidisciplinary team rounds. NORBERTO Miranda 08/17/2018 8:18 PGY2 Residential Driver Attending Attestation: I saw and evaluated the patient today. Treatment plan reviewed with the patient and team. I agree with (and/or have edited in blue text) the findings and plan of care as documented in the resident's/PA/medical student's note. Total time spent directly with patient was 25 minutes of which 15 minuteswas spent in counseling (re:symptoms and treatment plan as in note above) and/or in coordination ofcare with the multidisciplinary team. SONALI MILLS MD Attending Psychiatrist [facility] Pager [phone] * Venkata Telles LICSW - 08/16/2018 1630 EDT Social Work Progress Note Intervention/Service: Community referral, Coordination of care and Discharge planning JIMENEZ met with Alonzo today. Alonzo has not heard back from [employer] JIMENEZ and Alonzo discussed possibility of him having his car towed from [employer] to his apartment. Alonzo said that could work but hedoes not have a way to pay [employer]. All of his credit cards and debit cards are in his apartment. JIMENEZ asked if he could ask his Landlord for assistance. Alonzo thought that it might be possiblefor his land lord to olive picker his car. Alonzo plans to call him and ask tomorrow. JIMENEZ will follow up with Alonzo in the morning. CISCO Guillen * Sania Sifuentes MBBS - 08/16/2018 0912 EDT Inpatient Psychiatry Daily Progress Note Date of Service: 08/16/2018 Admit Date: 08/09/2018 Hospital day: LOS: 7 days Legal Status: Legal status: Voluntary Observation Level: Observation / visual check: Q 15 minutes (frequent) Locus/Risk of Harm: Current locus of harm: 3 Reason for Admission/Chief Complaint: SI Clinical Update/24-hour Events: Events of past 24 hours reviewed with multidisciplinary team and chart review. No significant events. Sleep: Slept total 10.75 hours /24 hours. Appetite: better today Medication side effects: Denies PRNs: tylenol- headache, atarax- anxiety Groups: not any in 24 hrs Pain: headache decreased to 4-5/10 after IV Mg. Alonzo was seen o/n by neurology and received 1L NS, compazine and Mg IV- he has endorsed decreased intensity of headache to 4/10 after this treatment. During our meeting today he endorsed continuing terrible mood and feeling hopeless about his current social/financial situation. He did endorse a decrease in his headache and relief at knowing that the CT had not shown a bleed. He denied any SI while in the hospital but when asked about outside stated I don't want to answer that question. Stated I cant just be sitting here doing nothing but did not ask for/ bring up discharge. Per JIMENEZ Hastings the patient discussed several of his ongoing challenges with Venkata to find solutions/problem solving- he was amenable to the suggestion of arranging his car to be towed to his apartment, He also called social security to discuss his disability. Current Facility-Administered Medications: acetaminophen (TYLENOL) tablet 500 mg oral Q6H PRN citalopram (CELEXA) tablet 20 mg oral DAILY docusate sodium (COLACE) capsule 100 mg oral Daily PRN hydrOXYzine (ATARAX) tablet 50 mg oral Q4H PRN lactulose (CHRONULAC) 20 gram/30 mL solution 30 mL oral Q6H PRN losartan (COZAAR) tablet 50 mg oral DAILY magnesium hydroxide (MILK OF MAGNESIA) 400 mg/5 mL suspension 30 mL oral Daily PRN magnesium oxide (MAG-OX) tablet 400 mg oral DAILY multivitamin (FLINTSTONES) chewable tablet 2 tablet oral DAILY nadolol (CORGARD) tablet 20 mg oral DAILY pantoprazole (PROTONIX) tablet 40 mg oral BID senna (SENOKOT) tablet 1 tablet oral AT BEDTIME PRN thiamine (VITAMIN B1) tablet 100 mg oral DAILY Review of Systems: As above Mental Status Exam: Well-developed, well-nourished middle aged man, appears stated age, casually dressed, neat and wellgroomed- walking around the room with a limp. Distress not apparent. Intermittent eye contact. Somegeneralized psychomotor slowing but no abnormal/involuntary movements. Speech unremarkable for rhythm, tone, or volume or rate. Stated mood is Terrible, and affect is congruent, guarded: dysphoric, blunted and constricted. Thought process is linear with tight associations. Thought content is reality based though not fully future-oriented. Notable for several cognitive distortions including all or none thinking and predicting the future- however less prominently expressed today. No overt paranoia, obsessions, or delusions. Denies SI or intent in the hospital but is guarded about SI in the outside world. Denies HI or perceptual disturbances. Patient is alert and oriented to self, person andplace. Language, cognition, and memory are grossly intact. Insight Is fair. Judgement is Fair- doesnot want to attend groups but does engage with his team. Physical Exam: BP 140/60 (BP Cuff Location: Left arm, Patient Position: Supine) Pulse (!) 44 Temp 36.6 ??C (97.9 ??F) (Temporal) Resp 14 Ht 157.5 cm (62) Wt 80.4 kg (177 lb 3.2 oz) SpO2 98% BMI 32.41kg/m?? Data Review: Labs: No results found for this or any previous visit (from the past 24 hour(s)). Assessment/Formulation: Alonzo Urbina is a 63 y.o. year old man with a PMH of Hep C, alcoholic liver cirrhosis and a past psychiatric history of substance use disorder (alcohol- active, cocaine - active), 3 previous rehabilitation stays but no previous psychiatric hospitalization who presents with SI in the context of several psychosocial stressors including loss of diability pay and getting 2 nd DUI yesterday. The patient's presentation is most consistent with the diagnosis of moderate to severe depression, polysubstance use disorder and cluster B traits. Today Alonzo presented as the most guarded since his admission. He was not tearful but had a severely restricted dysphoric affect and declined to answer questions about SI- given his continuing psychosocial stressors he continues to be a high risk for harm to self and would be EE'ble should he ask to leave. He will benefit from continued hospitalization for safety, Further stabilization, medication management- especially ongoing evaluation and treatment of his headache, learning of coping skillsand establishment of OP resources. Alonzo Urbina meets criteria for acute level of care. Diagnostic Impression w/ Differential Diagnosis Psychiatric Diagnoses (including Personality Traits/Disorders):unspecified depression r/o MDD vs substance induced vs adjustment disorder, substance use disorder- active both alcohol and cocaine., r/o cluster B traits. Other Medical Conditions: Hepatitis C, cirrhosis s/p TIPS, duodenal ulcer s/p embolization, s/p back surgery( scoliosis) Plan: NURYS 3, frequent obs. - Encourage self care thorough attention to ADLs and exercise as tolerated - encourage groups Substance use disorder: Active [facility] monitoring protocol Substance use/ Recovery group- this evening.: Talked to activity therapist Tl Ortega about encouraging him to attend groups randall this one. Depression/Anxiety - Continue Citalopram 20 mg daily. - Continue hydroxyzine 25 mg q 4 prn. 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 Gastroenterology consulted about changing patient's nadolol to propranolol however they advised that since the patient has undergone TIPs procedure then he does not need to take nadolol . D/c nadolol. Duodenal Ulcer (s/p GI bleed requiring transfusion June 2018, s/p embolization of ulcer blood supply) Avoid NSAIDs Protonix 40mg BID HTN: Losartan 50 mg daily Discharge Plan: Discharge planning per multidisciplinary team rounds. NORBERTO Miranda 08/16/2018 12:19 Associated attestation - Kojo Yanez MD - 09/21/2018 1827 EDT Attending Attestation: I saw and evaluated the patient 08/16/18. Treatment plan reviewed with the patient and team. I agree with (and have edited in italics) the findings and plan of care as documented in the resident/PA's note. Kojo Yanez MD Attending Psychiatrist Pager [phone] * Sienna Ham RN - 08/15/2018 7629 EDT Assumed patient care at 19:00. Patient was asleep at start of shift. He woke and reported a 8/10 headache and anxiety. He requested and received PRN Tylenol and Atarax. His affect is restricted and he is isolative, but he is engaging and polite. He received his first dose of Magnesium and educationwas provided. He reported that he has a quiet day. No BM this shift but patient reported that he had three BM today. No other complaint at this time, he remain safe in the unit. Will continue to monitor. * Janay Villar RN - 08/15/2018 1648 EDT Pt continue to be safe on the unit. Pt denied SI/HI/AVH. Pt endorsed [place] 8/10 - Tylenol given per order with mild effect, Pt declining any other interventions at this time. Pt is isolative in the room, using his phone. Polite. Smiles at times. Mood is blunted; affect is restricted. Pt declined dinner. When asked if he wants anything else to be ordered for later, Pt declined as well. Continue to monitor. * Sonali Mills MD - 08/15/2018 1440 EDT Inpatient Psychiatry Daily Progress Note Date of Service: 08/15/2018 Admit Date: 08/09/2018 Hospital day: LOS: 6 days Legal Status: Legal status: Voluntary Observation Level: Observation / visual check: Q 15 minutes (frequent) Locus/Risk of Harm: Current locus of harm: 3 Reason for Admission/Chief Complaint: SI Clinical Update/24-hour Events: Events of past 24 hours reviewed with chart review. No significant events. Sleep-subjectively improved- 4.5 hrs/24 Pain: headache- constant, crushing 8/10- slightly better on waking but worsened after getting out of bed and shower. Slight photophobia. Denies phonophobia/nausea/history of migraines. States he had a fall 3 weeks ago while drinking- ?LOC, fogginess for few days afterwards. Headache more or less con stant since- except when drinking. No relief with tylenol or ibuprofen since admission. Patient states he is doing better mood cook but still very, very depressed. I am not a slacker - took shower today, made his bed. Feels some relief that SW is helping him but is still extremely overwhelmed by his life circumstances. Today very clearly denied SI while inpatient but expressed feeling unsure of himself outside the hospital- did not ask for discharge- did state that he did not want the headache to jeopardize his discharge plan/date. Current Facility-Administered Medications: acetaminophen (TYLENOL) tablet 500 mg oral Q6H PRN citalopram (CELEXA) tablet 20 mg oral DAILY docusate sodium (COLACE) capsule 100 mg oral Daily PRN hydrOXYzine (ATARAX) tablet 50 mg oral Q4H PRN lactulose (CHRONULAC) 20 gram/30 mL solution 30 mL oral Q6H PRN losartan (COZAAR) tablet 50 mg oral DAILY magnesium hydroxide (MILK OF MAGNESIA) 400 mg/5 mL suspension 30 mL oral Daily PRN nadolol (CORGARD) tablet 20 mg oral DAILY pantoprazole (PROTONIX) tablet 40 mg oral BID senna (SENOKOT) tablet 1 tablet oral AT BEDTIME PRN thiamine (VITAMIN B1) tablet 100 mg oral DAILY Review of Systems: As above Mental Status Exam: Older man of short stature, a limp, scar on left side of his face, neatly dressed in button up shirt and pajamas. - hair combed. Engages well- good eye contact (improved from before) Speech -dysarthria, word finding difficulty. Mood depressed, overwhelmed Affect- congruent, dysphoric, Restricted and blunted. Thought process linear, coherent, goal directed- latency worse than before. Thought Content reality based, notable for cognitive distortions and Hopelessness. Endorses SI but not current intent, denies perceptual disturbances. Insight: fair. Judgement: recently poor- improved compared to day of admission- engaging better. Physical Exam: BP 122/58 (Patient Position: Sitting) Pulse 51 Temp 37.3 ??C (99.1 ??F) Resp 14 Ht 157.5 cm(62) Wt 80.4 kg (177 lb 3.2 oz) SpO2 96% BMI 32.41 kg/m?? NEUROLOGIC EXAM: Cognitive: Awake and alert. Oriented x place and person- time of day but not date. Able to answer questions appropriately. Cranial nerves: PERRL EOMI Face symmetric Tongue midline Shrugs shoulders Motor: UE and LE power 5/5 bilaterally Sensory: Sensation to crude touch grossly intact at ankles and wrists Coordination and gait: Romberg's negative. Data Review: Labs: No results found for this or any previous visit (from the past 24 hour(s)). Assessment/Formulation: Alonzo Urbina is a 63 y.o. year old man with a PMH of Hep C, alcoholic liver cirrhosis and a past psychiatric history of substance use disorder (alcohol- active, cocaine - active), 3 previous rehabilitation stays but no previous psychiatric hospitalization who presents with SI in the context of several psychosocial stressors including loss of diability pay and getting 2 nd DUI yesterday. The patient's presentation is most consistent with the diagnosis of moderate to severe depression, polysubstance use disorder and cluster B traits. Mr. Urbina continues to be depressed, endorses dispair and hopelessness regarding current life circumstances. He clearly endorses being unsafe out of the hospital and would be a high risk for discharge - He would be EE'ble should he ask to leave. However today he has shown an improvement in his haily rovegetative symptoms and was less self critical during out interview which portends overall improvement in his motivation and mood. Also discussed risk and benefits of current antidepressant and he is amenable to increasing dose as required. He continues to complain of headache which has not responded significantly to current pain management. Acetaminophin and NSAID dosing are limited by cirrhosis and h/o ulcer, respectively. Given history of TBI 3 weeks ago preceding onset of headache there is some concern for intracranial pathology and hence both CT head and neurology consult was placed. Alonzo Urbina meets criteria for acute level of care. Diagnostic Impression w/ Differential Diagnosis Psychiatric Diagnoses (including Personality Traits/Disorders): Unspecified depression r/o MDD vs substance induced vs adjustment disorder, substance use disorder- active both alcohol and cocaine., r/o cluster B traits. Other Medical Conditions: Hepatitis C, cirrhosis s/p TIPS, duodenal ulcer s/p embolization, s/p back surgery( scoliosis). Headache- R/o intracranial pathology Plan: NURYS 3, frequent obs. 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 Medicine team consulted due to nursing staff expressing concern early in hospital stay about over sedation- IM gave advice to titrate lactulose to BM- 3- 4 BMs/day and to consult gastroenterology if more concern for hepatic encephalopathy arises. Duodenal Ulcer (s/p GI bleed requiring transfusion June 2018, s/p embolization of ulcer blood supply) Avoid NSAIDs Protonix 40mg BID Headache - limit total dosing of tylenol given cirrhosis; NSAIDs relatively contraindicated due to recent duodenal ulcer - CT brain ordered - Neurology consult placed. Discharge Plan: Discharge planning per multidisciplinary team rounds. NORBERTO Miranda 08/15/2018 14:40 PGY2 Residential Driver Attending Attestation: I saw and evaluated the patient today. Head CT without bleed, mild atrophy and white matter changes. Does have a subluxed TM joint- will ask pt tomorrow about that. Appreciate neurology consult. IV meds are not easily given on the floor so agree w/ po Mg to start. Treatment plan reviewed with the patient and team. I agree with (and/or have edited in blue text) the findings and plan of care as documented in the resident's/PA/medical student's note. Total time spent directly with patient was 35 minutes of which 20 minutes was spent in counseling (re:symptoms and treatment plan as in note above)and/or in coordination of care with the multidisciplinary team. SONALI MILLS MD Attending Psychiatrist [facility] Pager [phone] * Venkata Telles [facility] - 08/15/2018 1155 EDT Social Work Progress Note Intervention/Service: Community referral, Coordination of care and Discharge planning JIMENEZ met with Alonzo today and assisted him with calling [employer] to find out where his car is impounded. JIMENEZ contacted [employer] and they have his car. Alonzo stated he has not outside support to help him get his car moved. [employer] is charging $55.00/day for storage and $150.00 for the tow. They are willing to work with him but he needs to move it. SW also contacted his landlord and let him know he is in the hospital and we will be in touch when he is closer to discharge. CISCO Guillen * Sonali Mills MD - 08/14/2018 1832 EDT Inpatient Psychiatry Daily Progress Note Date of Service: 08/14/2018 Admit Date: 08/09/2018 Hospital day: LOS: 5 days Legal Status: Legal status: Voluntary Observation Level: Observation / visual check: Q 15 minutes (frequent) Locus/Risk of Harm: Current locus of harm: 3 Reason for Admission/Chief Complaint: SI Clinical Update/24-hour Events: Events of past 24 hours reviewed with multidisciplinary team and chart review. No significant events. Continues to have a headache. Went to just one group over the weekend: a recovery group on Tuesday night. Leaders wanted to pass along that he made suicidal statement in the group. Pt reports continued hopelessness. Says the anxiety is very strong and I let him know that we have nothing stronger than atarax that isn't addicting. Said the celexa might eventually help as well as practical problem solving. He needs to phone to locate his car, understand his legal situation, and find out more about disability. Says he really messed up his live and everything is pointless. I talked w/ him about his relationships as he feels very lonely. He has been 4x, with his last (of 6 years) dying of a pulmonary embolus plus opiates. He admitted to not being fully sober for the 10 years prior to his relapse, but to doing well with the amounts. Had early losses (oneyear older brother of Wilms disease when he was 3, mother when he was 10, his first left him and took his son who he hasn't seen in decades, his daughter by choking when she was 25) some of which are due to his alcoholism. Current Facility-Administered Medications: acetaminophen (TYLENOL) tablet 500 mg oral Q6H PRN [START ON 08/15/2018] citalopram (CELEXA) tablet 20 mg oral DAILY docusate sodium (COLACE) capsule 100 mg oral Daily PRN hydrOXYzine (ATARAX) tablet 50 mg oral Q4H PRN lactulose (CHRONULAC) 20 gram/30 mL solution 30 mL oral Q6H PRN losartan (COZAAR) tablet 50 mg oral DAILY magnesium hydroxide (MILK OF MAGNESIA) 400 mg/5 mL suspension 30 mL oral Daily PRN nadolol (CORGARD) tablet 20 mg oral DAILY pantoprazole (PROTONIX) tablet 40 mg oral BID senna (SENOKOT) tablet 1 tablet oral AT BEDTIME PRN thiamine (VITAMIN B1) tablet 100 mg oral DAILY Review of Systems: As above Mental Status Exam: Older man of short stature, a limp, scar on left side of his face, and a speech dysarthria wearing casual clothes. Restricted and at times tearful affect. TP coherent and GD. TC hopeless with SI but not current intent; plan unclear, no perceptual disturbances. Insight: fair. Judgement: recently poor. Physical Exam: BP 124/67 (BP Cuff Location: Right arm, Patient Position: Sitting) Pulse (!) 49 Comment: RN notified Temp 36.8 ??C (98.2 ??F) (Temporal) Resp 16 Ht 157.5 cm (62) Wt 80.4 kg (177 lb 3.2 oz) SpO2 99% BMI 32.41 kg/m?? Data Review: Labs: No results found for this or any previous visit (from the past 24 hour(s)). Assessment/Formulation: Alonzo Urbina is a 63 y.o. year old man with a PMH of Hep C, alcoholic liver cirrhosis and a past psychiatric history of substance use disorder (alcohol- active, cocaine - active), 3 previous rehabilitation stays but no previous psychiatric hospitalization who presents with SI in the context of several psychosocial stressors including loss of diability pay and getting 2 nd DUI yesterday. The patient's presentation is most consistent with the diagnosis of moderate to severe depression, polysubstance use disorder and cluster B traits. Remains tearful, hopeless and suicidal, although today did speak to me about his history. Willing to take practical steps to find out about his current circumstances. He would be EE'ble should he askto leave. If continues w/ headache tomorrow, we can consider neurology consult. Acetaminophin and NSAID dosing are limited by cirrhosis and h/o ulcer, respectively. Alonzo Urbina meets criteria for acute level of care. Diagnostic Impression w/ Differential Diagnosis Psychiatric Diagnoses (including Personality Traits/Disorders):unspecified depression r/o MDD vs substance induced vs adjustment disorder, substance use disorder- active both alcohol and cocaine., r/o cluster B traits. Other Medical Conditions: Hepatitis C, cirrhosis s/p TIPS, duodenal ulcer s/p embolization, s/p back surgery( scoliosis) Plan: NURYS 3, frequent obs. 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 Medicine team consulted due to nursing staff expressing concern about over sedation- IM gave adviceto titrate lactulose to BM- 3-4 BMs/day and to consult gastroenterology if more concern for hepaticencephalopathy arises. Duodenal Ulcer (s/p GI bleed requiring transfusion June 2018, s/p embolization of ulcer blood supply) Avoid NSAIDs Protonix 40mg BID Headache Follow, limit total dosing of tylenol given cirrhosis; NSAIDs relatively contraindicated due to recent duodenal ulcer Discharge Plan: Discharge planning per multidisciplinary team rounds. Sonali Mills MD 08/14/2018 18:32 Attending Attestation: I saw and evaluated the patient today. Treatment plan reviewed with the patient and team. Total time spent directly with patient was 35 minutes of which 20 minutes was spent in counseling (re:symptoms and treatment plan as in note above) and/or in coordination of care with the multidisciplinary team. SONALI MILLS MD Attending Psychiatrist [facility] Pager [phone] * Venkata Telles LICSW - 08/14/2018 6401 EDT Social Work Progress Note Intervention/Service: Coordination of care and Discharge planning JIMENEZ met with Alonzo today. Alonzo would like to call , his landlord, and figure out where his car isimpounded. JIMENEZ will work with him tomorrow on this goals. CISCO Guillen * Chantal Brewer, PsyD - 08/13/2018 0804 EDT 08/13/2018 ATTENDING NOTE HISTORY: 24 hr events were reviewed and patient's case was discussed in interdisciplinary team rounds. Alonzoreports feeling hopeless and helpless. He has been reading in his recliner. His headache continues.At 16:30 Tuesday he took tylenol with some effect. He slept 6 hours overnight but his sleep was interrupted. MEDICATIONS: Current Facility-Administered Medications: acetaminophen (TYLENOL) tablet 650 mg oral Q4H PRN citalopram (CELEXA) tablet 10 mg oral DAILY docusate sodium (COLACE) capsule 100 mg oral Daily PRN hydrOXYzine (ATARAX) tablet 25 mg oral Q4H PRN lactulose (CHRONULAC) 20 gram/30 mL solution 30 mL oral Q6H PRN LORazepam (ATIVAN) injection 1-2 mg intramuscular Q1H PRN Or LORazepam (ATIVAN) tablet 2-4 mg oral Q1H PRN losartan (COZAAR) tablet 50 mg oral DAILY magnesium hydroxide (MILK OF MAGNESIA) 400 mg/5 mL suspension 30 mL oral Daily PRN nadolol (CORGARD) tablet 20 mg oral DAILY pantoprazole (PROTONIX) tablet 40 mg oral BID senna (SENOKOT) tablet 1 tablet oral AT BEDTIME PRN thiamine (VITAMIN B1) tablet 100 mg oral DAILY ASSESSMENT: Alonzo was found sitting up in bed. He describes his mood as blase. He is anxious, reporting that many factors in his life or unsettled and it is difficult for him to relax. He reports his headache is feeling a bit better today at an 6/10. He plans to spend his day sleeping today as hedoes not yet feel ready to talk. He agreed to consider talking to peers and staff more tomorrow andwill consider attending groups beginning tomorrow. He denies SI/HI/AVH. He is disheveled and malodorous, makes poor eye contact and appears to be experiencing some psychomotor slowing. The patient made better eye contact when requesting PRN medication for anxiety. Psychiatric Diagnoses (including Personality Traits/Disorders):unspecified depression r/o MDD vs substance induced vs adjustment disorder, substance use disorder- active both alcohol and cocaine., r/o cluster B traits. ?? Other Medical Conditions:?Hepatitis C, cirrhosis??s/p TIPS,??duodenal ulcer s/p embolization,??s/p back surgery( scoliosis) PLAN: Continue plan per primary team Attending Attestation: I saw and evaluated the patient today. Treatment plan reviewed with the patient and team. Chantal Brewer PsyD. Staff Psychologist Pager [phone] * Chantal Brewer PsyD - 08/12/2018 0735 EDT 08/12/2018 ATTENDING NOTE HISTORY: 24 hr events were reviewed and patient's case was discussed in interdisciplinary team rounds. Alonzoslept on and off, complained of a headache and anxiety, and attended part of the recovery group. Heis not scoring on CIWA and took one lactulose. Nursing is encouraging him to take more lactulose. Alonzo slept 7 hours overnight. He took a total of one dose of Lactulose PRN. MEDICATIONS: Current Facility-Administered Medications: acetaminophen (TYLENOL) tablet 650 mg oral Q4H PRN citalopram (CELEXA) tablet 10 mg oral DAILY docusate sodium (COLACE) capsule 100 mg oral Daily PRN hydrOXYzine (ATARAX) tablet 25 mg oral Q4H PRN lactulose (CHRONULAC) 20 gram/30 mL solution 30 mL oral Q6H PRN LORazepam (ATIVAN) injection 1-2 mg intramuscular Q1H PRN Or LORazepam (ATIVAN) tablet 2-4 mg oral Q1H PRN losartan (COZAAR) tablet 50 mg oral DAILY magnesium hydroxide (MILK OF MAGNESIA) 400 mg/5 mL suspension 30 mL oral Daily PRN nadolol (CORGARD) tablet 20 mg oral DAILY pantoprazole (PROTONIX) tablet 40 mg oral BID senna (SENOKOT) tablet 1 tablet oral AT BEDTIME PRN thiamine (VITAMIN B1) tablet 100 mg oral DAILY ASSESSMENT: Alonzo was found resting in bed. He describes his mood as horrible. He complains of a headache and finds his PRN Tylenol has not helped alleviate this pain. He was irritable and somewhatcombative with the telegraphic typewriter operator. He appears to experience significant guilt as he was also apologetic forhis combtiveness. He reports SI with a plan, but refused to disclose the details of his plan. He den ied that his plan involves any action he would be able to take while hospitalized, stating, I would never do that to the people here. Alonzo agreed to consider attending groups today. He abruptly ended his meeting with the telegraphic typewriter operator by stating, I don't want to talk to you anymore. Psychiatric Diagnoses (including Personality Traits/Disorders):unspecified depression r/o MDD vs substance induced vs adjustment disorder, substance use disorder- active both alcohol and cocaine., r/o cluster B traits. ?? Other Medical Conditions: Hepatitis C, cirrhosis s/p TIPS, duodenal ulcer s/p embolization, s/p back surgery( scoliosis) PLAN: Continue plan per primary team Attending Attestation: I saw and evaluated the patient today. Treatment plan reviewed with the patient and team. Chantal Brewer PsyD. Staff Psychologist Pager [phone] * Tl St, PhD - 08/11/[address] [facility] Department of Psychiatry-Inpatient Psychiatry GT Note Re: Alonzo Urbina : 1955 AGE: 63 y.o. Room: [place] [id number] The patient attended the Recovery Group this evening at 18:15. The Recovery Group Volunteers reported to this telegraphic typewriter operator, at the end of the session, that the patient J.W. made several Self-Harm and Suicidal statements while in group, adding that he was in [place] to[place] seek to , as he endorsed no hope for the future, and no support either from the multidis ciplinary treatment team on the unit or in the community. This telegraphic typewriter operator communicated this with hospital staff pharmacist and will meet with both the MD day habilitation supervisor (currently in a meeting with another patient) and Rd this evening (Despite encouragement, the patient previously declined other interactions / group attendance as he stated that I don't understand what people are saying here, everything it's too complicated, I just don't get it.) Tl St, PhD Zia-PhD MA MCS AAT, GT 08/11/2018 * Venkata Telles LICSW - 08/11/2018 1625 EDT Social Work Progress Note Intervention/Service: Coordination of care JIMENEZ attempted to meet with Alonzo several times today but he was sleeping. JIMENEZ will follow up Tuesday. CISCO Guillen * Sonali Mills MD - 08/11/2018 0828 EDT Inpatient Psychiatry Daily Progress Note Date of Service: 08/11/2018 Admit Date: 08/09/2018 Hospital day: LOS: 2 days Legal Status: Legal status: Voluntary Observation Level: Observation / visual check: Constant (direct) Locus/Risk of Harm: Current locus of harm: 4 Reason for Admission/Chief Complaint: SI Clinical Update/24-hour Events: Events of past 24 hours reviewed with multidisciplinary team and chart review. No significant events. Sleep: Slept total 10.75 hours /24 hours. Appetite: decreased Medication side effects: Denies PRNs: tylenol- headache, atarax- anxiety Groups: attended one and was overwhelmed Pain: 8/10 headache Per RN report Alonzo has made several statements to staff to the effect that he wants to be discharged so that he can kill himself . During our meeting today we discussed his motivation in coming to the hospital and he acknowledged that some part of him did want to get help- he was amenable to the suggestion of paying attention tothat. He also expressed severe despair about his financial situation, loss of disability pay, abouthis car which is in pound and about his DUI- I will never be able to drive again-stated tearfully, not that I care about it. Discussed meeting with JIMENEZ Telles to discuss these issues and some ways to face his anxiety. Alonzo made several statements of self hatred including I deserve everything that's happened to me and more. However he firmly endorsed that he would not harm himself while in the hospital. To attending said he knows how to manipulate so that two weeks from now you will think it is OK todischarge me. Said that he is his own worst enemy. Cried when he said he had nothing to live for. Described a month long relationship for which he moved to [facility] in which the woman told him one day: I don't like you and asked him to move out. He then got the first apartment he could in [facility] which doesn't feel like home. Reiterated that he is not a slouch and has always worked. Told me that when he was admitted for in June for a GI bleed, he needed several transfusions; now he regrets getting that help. Despite multiple staff telling him not to drink, he got home and opened a bottle of vodka. Current Facility-Administered Medications: acetaminophen (TYLENOL) tablet 500 mg oral Q4H PRN docusate sodium (COLACE) capsule 100 mg oral Daily PRN hydrOXYzine (ATARAX) tablet 25 mg oral Q4H PRN lactulose (CHRONULAC) 20 gram/30 mL solution 30 mL oral DAILY LORazepam (ATIVAN) injection 1-2 mg intramuscular Q1H PRN Or LORazepam (ATIVAN) tablet 2-4 mg oral Q1H PRN losartan (COZAAR) tablet 50 mg oral DAILY magnesium hydroxide (MILK OF MAGNESIA) 400 mg/5 mL suspension 30 mL oral Daily PRN nadolol (CORGARD) tablet 20 mg oral DAILY pantoprazole (PROTONIX) tablet 40 mg oral BID senna (SENOKOT) tablet 1 tablet oral AT BEDTIME PRN thiamine (VITAMIN B1) tablet 100 mg oral DAILY Review of Systems: As above Mental Status Exam: Well-developed, well-nourished middle aged man, appears stated age, casually dressed, disheveled and tearful. Visible/apparent distress. Poor /intermittent eye contact- downward gaze. Some generalized psychomotor slowing but no abnormal/involuntary movements. Speech unremarkable for rhythm, tone, or volume- slightly pressured. Stated mood is I deserve everything that s happened to me, and affect is congruent, dysphoric, tearful, constricted. Thought process is linear with tight associations. Thought content is reality based though not fully future-oriented. Notable for several cognitive distortions including all or none thinking, kitchen sinking, labeling and predicting the future; also no table for negative self esteem/self judgement. No overt paranoia, obsessions, or delusions. Endorses active SI and wanting to but firmly denies intent or plan. No HI or perceptual disturbances. Patient is alert and oriented to self, person and place. Language, cognition, and memory are grossly intact. Insight into substance use limited- states he wants to drink a bottle of vodka to cope but is able to tolerate a challenge to this statement. Judgement is poor. Physical Exam: BP 113/55 (BP Cuff Location: Right arm, Patient Position: Lying left side) Pulse 57 Temp 37.4 ??C (99.3 ??F) (Temporal) Resp 16 Ht 157.5 cm (62) Wt 88 kg (194 lb) SpO2 98% BMI 35.48 kg/m?? Data Review: Labs: Results for orders placed or performed during the hospital encounter of 08/09/18 (from the past 24 hour(s)) INPATIENT ADD-ON Collection Time: 08/10/18 9:05 Result Value Ref Range Tests to be added THIAMINE LEVEL Number for problems SBP3 Accession number NO PURPLE PROTECTED FROM LIGHT, TSH3 ALREADY RUN 08/09. SPOKE WITH JAX. Assessment/Formulation: Alonzo Urbina is a 63 y.o. year old man with a PMH of Hep C, alcoholic liver cirrhosis and a past psychiatric history of substance use disorder (alcohol- active, cocaine - active), 3 previous rehabilitation stays but no previous psychiatric hospitalization who presents with SI in the context of several psychosocial stressors including loss of diability pay and getting 2 nd DUI yesterday. The patient's presentation is most consistent with the diagnosis of moderate to severe depression, polysubstance use disorder and cluster B traits. Today Alonzo presents with continued tearful affect and hopelessness/desperation. However he is ableto acknowledge some hope about getting help from the team. He is also able to contract for safety .However he continues to be at high risk for suicide given his ongoing circumstances with DUI, financial loss and social isolation. He would therefore benefit from hospitalization for stabilization, sa fety, medication management and development of coping skills and outpatient resources. He would be EE'ble should he ask to leave. We discussed risks and benefits of SSRIs for treatment of depression and anxiety and he was amenable to starting citalopram 10 mg daily. Discussed sertraline- but would be inappropriate given possibility of GI SE/diarrheoa. Alonzo Urbina meets criteria for acute level of care. Diagnostic Impression w/ Differential Diagnosis Psychiatric Diagnoses (including Personality Traits/Disorders):unspecified depression r/o MDD vs substance induced vs adjustment disorder, substance use disorder- active both alcohol and cocaine., r/o cluster B traits. Other Medical Conditions: Hepatitis C, cirrhosis s/p TIPS, duodenal ulcer s/p embolization, s/p back surgery( scoliosis) Plan: NURYS 3, frequent obs. - Encourage self care thorough attention to ADLs and exercise as tolerated - encourage groups Substance use disorder: Active CIWA monitoring protocol Substance use/ Recovery group Depression - Start Citalopram 10 mg daily tomorrow HTN: Nadolol 20 mg daily Cirrhosis (s/p TIPS in 2016- transjugular intrahepatic portosystemic shunt): Lactulose 30 mg q 8 prn.. Medicine team consulted due to nursing staff expressing concern about over sedation- IM gave adviceto titrate lactulose to BM- 3-4 BMs/day and to consult gastroenterology if more concern for hepaticencephalopathy arises. Duodenal Ulcer (s/p GI bleed requiring transfusion June 2018, s/p embolization of ulcer blood supply) Avoid NSAIDs Protonix 40mg BID Discharge Plan: Discharge planning per multidisciplinary team rounds. NORBERTO Miranda 08/11/2018 8:28 Attending Attestation: I saw and evaluated the patient today. Treatment plan reviewed with the patient and team. I agree with (and/or have edited in blue text) the findings and plan of care as documented in the resident's/PA/medical student's note. Total time spent directly with patient was 35 minutes of which 20 minuteswas spent in counseling (re:symptoms and treatment plan as in note above) and/or in coordination ofcare with the multidisciplinary team. SONALI MILLS MD Attending Psychiatrist [facility] Pager [phone] * Venkata Telles [facility] - 08/10/2018 8270 EDT Psychosocial Assessment & Initial Discharge Plan Presenting Problems: Alonzo is a 63 y.o. , and currently man with a PMH ofHep C, alcoholic liver cirrhosis and a past psychiatric history of substance use disorder (alcohol-active, cocaine - active), 3 previous rehabilitation stays but no previous psychiatric hospitalization who presents with SI in the context of several psychosocial stressors including loss of diability pay and getting 2 nd DUI yesterday. Current Living Situation/Housing: Lives in an apartment alone. Family/Support System and Contact Telephone Numbers: Elena Allen (Friend) [phone] (H) Family Constellation/Pertinent Family History: Alonzo was living with a girlfriend up until a year when she left to go to [facility] with a class she teaching Alonzo relapsed on alcohol. His girlfriend returned from her trip and asked him to leave her home. Alonzo has been couch surfing and drinking ever s terry he moved out. Other Social Supports: None identified. Education/Employment Financial: Alonzo is currently working at [employer]. Alonzo asked that SW contact them to let them know he would not be coming in. Substance Abuse and Treatment History: Alonzo has had 3 previous rehabilitation stays. Mental Health Treatment History: No previous psychiatric hospitalizations. Mental Health and Other Providers: None identified. Legal Issues: 2nd DUI a few days ago. Spiritual/Gnosticist/Cultural Considerations: None identified. Other Issues/Supports/Barriers to Adaptive Functioning: Currently experiencing withdrawal symptoms.Alonzo' truck has been impounded and he will need support resolving that situation. Insurance/Pharmacy Coverage: Medicare Assessment: Alonzo is a 63 y.o. , and currently man with a PMH of Hep C, alcoholic liver cirrhosis and a past psychiatric history of substance use disorder (alcohol- active, cocaine - active), 3 previous rehabilitation stays but no previous psychiatric hospitalization who presents with SI in the context of several psychosocial stressors including loss of diability pay andgetting 2 nd DUI yesterday. Alonzo cannot currently identify any goals and continues to report SI. Plan: Assist patient with discharge planning, make appropriated OP referrals. CISCO Guillen documented in this encounter H&P Notes * Sonali Mills MD - 08/09/20181920 EDT Inpatient Admission Psychiatric Evaluation Admit date: 08/09/2018 Date of service: 08/09/2018 [facility]: [facility] Outpatient providers: none PCP: Laurie Wiggins Information obtained from: patient and hospital records Legal Status: Admission is voluntary Chief Complaint: I want to . I am going to . I put up a big facade HPI: Patient is a 63 y.o. , and currently man with a PMH of Hep C, alcoholic liver cirrhosis and a past psychiatric history of substance use disorder (alcohol- active, cocaine - active), 3 previous rehabilitation stays but no previous psychiatric hospitalization who presents with SI in the context of several psychosocial stressors including loss of diability pay and getting 2 nd DUI yesterday. The patient states that he was apparently all right until about a year ago when his girlfriend broke up with him and kicked him out of her house. At that time the patient was living with his girlfriend and has been essentially homeless since, until 3 months ago when he has got an apartment. He states that he had been sober for 10 years prior to meeting his current girlfriend who is Kinyarwanda and drank alcohol/wine every day. On meeting her, the patient started to drink the occasional glass of wineand quickly relapsed into binges of alcohol sometimes lasting all night. His relationship with his girlfriend was already strained however when she went to [facility] he spent all night drinking at a barand then smoked cocaine because they offered it for free . Over the next 3 days the patient spentabout $3000 on cocaine thus depleting his savings. When his girlfriend found out about this she wanted nothing to do with him . Ever since he has been struggling with anhedonia, poor sleep, increased guilt, low self- esteem and passive SI off-and-on. This past Tuesday he received a notice informing him that his disability coverage was being discontinued as he had exceeded the income limit qualifying him for disability. Following this the patient slipped into a binge of drinking alcohol endingwith his arrest for DUI yesterday. He spent the night in residential and was released this morning when hewas faced with the prospect of walking 40 miles to his home as he has no money. He describes this as the last straw and thinking that he just wanted to . He mentioned this to the psychologist social at the police station who then brought him to the ER. He states that he had a plan of drinking a gallonof vodka and 'disappearing into the royal TARGET SYMPTOMS: I. Mood Changes: depressed II. Sleep changes: initial insomnia and multiple awakenings III. Appetite changes: decreased appetite IV. Depression symptoms: decreased pleasure, decreased interest, fatigue, hopelessness, helplessness, worthlessness/guilt and social isolation V. Anxiety symptoms: restlessness . Manic/impulsive/attentional symptoms; none VII. Psychotic symptoms: none VIII. Suicidality (within the last 6 months): active suicidal ideation and suicide plan to drink a gallon of vodka IX. Violence Risk / Homicidality (within the last 6 months):none Reason for Failure of Outpatient Treatment: Increased severity of psychiatric symptoms Current Support System: none HISTORY Psychiatric History: Previous diagnosis: Alcohol use disorder, depression Prior hospitalization: none psychiatric. 3 rehab stays with longest stay in a sober house in 1986- patient relapsed the day after discharge/when he got his car. Longitudinal course of illness: waxing and waning, longest period of sobriety 10 years per self report. Depression off and on Prior suicidal behavior: gives h/o cutting his forearm both in the front and the back with intent to . Prior self-injurious behavior: as above Prior aggressive behavior: Denies Previous medication trials (dose, frequency, duration, effect on target problems,side-effects): Fluoxetine and sertraline for more than 6 months several years ago. Haldol for about a month when he was working in the [employer] discontinued due to oversedation. Endorses having been on venlafaxine, bupropion and mirtazapine sometime in 2002 following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 hospitalized 2 months prior. From evaluation of blood work and work-up thusfar, it does not appear that patient has infection, bleeding, malnutrition, constipation, or renal dysfunction. Agree with minimizing medications as possible, especially sedative medication such as benzodiazepines if he is on these. He is on twice daily PPI for bleeding duodenal ulcer, however if he has been on this for 2 to 3 months this may be changed to daily. His mental status changes could also be due to neurologic manifestations of to long-standing EtOH/substance use or manifestations of s omething like migraine headaches since he did complain of headaches prior to admission. - Hepatic encephalopathy unlikely cause of word finding difficulties - Avoid benzodiazepines - Agree with decreasing medications when able Serum ammonia: Serum ammonia can be elevated for multiple reasons and its levels are variable, however it is inconsistently elevated in patients with hepatic encephalopathy and therefore is not a reliable way to evaluate for this. The serum test can also be influenced by other factors such as fist clenching, tourniquet use, and the sample not being placed on ice. Seen and examined with Dr. Alayna Gallo MD Gastroenterology & Hepatology 09/06/2018 18:12 Attestation statement: I saw and examined the patient with the resident/fellow. I agree with the findings and plan of care documented in the resident's/fellow's note. Patient with word finding difficulty that comes and goes rather quickly. This pattern is atypical for hepatic encephalopathy. Wonderabout complex migraine with aura or another causes. Would not be aggressive with lactulose or otherlaxatives in this setting unless his mental status changes. * Darien Jerez MD, - 09/01/2018 1627 EDT Stroke Consult Note Service Date: 09/01/2018 Admit Date: 08/09/2018 16:54 Primary Care Provider: Laurie Wiggins Referring MD:Sonali Mills MD Code Status: Limitation of Treatment Palliative Care was not consulted because criteria not met. Chief Complaint: word finding difficulties HPI Alonzo Urbina is a 63 y.o. male with hx of hep C, alcoholic cirrhosis s/p TIPS, duodenal ulcer s/p embolization, prior back surgery for scoliosis currently admitted to [facility] for depression. Patient was in their USOH until this morning. His LKN was yesterday evening per psychiatry staff. This morning during evaluation, he was noted to have some word-finding difficulties, which were attributed mainly to attentional issues at the time. However, at about 1610, he was noted to have worsening of these word- finding difficulties, and a stroke code was called for this reason. On interview, he said that he was sad. When Dr. Ayers asked why he was sad, he said it was because ofhis difficulty finding the right words. He denies any headaches (we were previously consulted for migraine management in setting of traumatic head injury), weakness, numbness, changes in vision. Review of Systems A 12 point review of systems was performed, pertinent positives are listed above, otherwise negative, non-contributory, or not warranting urgent evaluation at this time Past Medical History: Diagnosis Date ??? Anemia [...] 20 years ago ??? TIPS PROCEDURE 01-28-2014 Social History Tobacco Use ??? Smoking status: Never Smoker ??? Smokeless tobacco: Never Used Substance Use Topics ??? Alcohol use: No Family History Problem Relation Age of Onset ??? Cancer Mother ??? Breast Cancer Mother ??? Alcohol Abuse Father ??? Cancer Father ??? Diabetes Father ??? Cancer Sister ??? Crohn's Disease Sister ??? Diabetes Sister ??? Cancer Brother ??? Anesthesia Problem Brother ??? Cancer Sister ??? Anesthesia Problem Sister Medications Prior to Admission Medication Sig ??? LACTULOSE ORAL Take by mouth. ??? losartan (COZAAR) 50 mg tablet Take 50 mg by mouth 2 times daily. ??? pantoprazole (PROTONIX) 40 mg tablet Take 1 tablet by mouth 2 times daily. Allergies Allergen Reactions ??? Ambien [Zolpidem] Sleep-driving Objective Vitals Temp: [36.7 ??C (98.1 ??F)] (), Heart Rate: -- (), Pulse: [57] (), Resp: [12] (), BP: (116)/(58) (), SpO2: [99 %] (), O2 Flow Rate (L/min): 0 l/min Numeric Pain Level (Scale 1-10): 0 Weight: Weight : 82.6 kg (182 lb) Body mass index is 33.29 kg/m??. GEN: alert, sad, NAD HEENT: NCAT, MMM NECK: supple, trachea is midline CV: RRR LUNG: normal WOB on RA ABD: soft, ND EXT: WWP : no alexander SKIN: no concerning rashes or lesions on exposed skin Neurological exam: Mental status/Language: AAO. Able to follow complex commands crossing midline. Naming intact. Repetition intact but slowed latency. Speech hesitant with no dysarthria Cranial nerves: Visual menard full to confrontation and DSS. EOMMs full in primary gaze versions with no nystagmus, ptosis, gaze palsy or preference. V1-V3 intact to LT with no asymmetry or extinction. Scar interrupting L NL groove from skin biopsy. Smile is symmetric, raises eyebrows and buries eyelashes with no asymmetry. Hearing intact grossly to voice. No dysarthria. Tongue protrudes midline Motor: No pronator drift. Strength full in b/l UEs/LEs proximally and distally. Sensory: intact to LT in all four extremities without asymmetry. No extinction to DSS Reflexes: as noted (R/L) below. Toes downgoing. Coordination: FTN/HTS intact with no dysmetria/ataxia. Gait: Deferred Pressure Ulcer Present on admission? No Labs I have personally reviewed Recent Labs 09/01/18 1117 WBC 2.95* RBC 4.26* HGB 10.7* HCT 34.6* MCV 81 MCH 25.1* MCHC 30.9* PLT 133* Recent Labs 09/01/18 1117 NA 138 K 4.4 CL 104 CO2 27 Recent Labs 09/01/18 1053 COLOR Yellow CLARITYU Clear GLUCOSEU Neg BILIRUBINUR Neg KETONES Neg PHUR 7.0 PROTEINUA Neg UROBILINOGEN Normal NITRITE Neg LEUKESTER Neg WBCU 0 to 3 RBCU 0 to 2 SQUAEPIU None seen BACTERIA None seen LABCAST < or = 10 Imaging: Reviewed in PRISM. Pertinent alvarez images and CTH wo contrast 08/25/18 ?? IMPRESSION: Mild global cerebral volume loss and chronic white matter changes. No acute intracranial process. ?? The left temporal mandibular joint is subluxed, chronicity uncertain. Correlate for any clinical findings to suggest recent injury. CTH wo contrast 09/01/18: negative for hemorrhage Assessment Alonzo Urbina is a 63 y.o. male with a history pertinent for hep C, alcoholic cirrhosis s/p TIPS, duodenal ulcer s/p embolization, and severe depression currently hospitalized. He was last known normal yesterday with discovery of mild word-finding difficulties (stuttering) that does not sound completely consistent with a focal neurologic syndrome. No known stroke RFs. Nonetheless, should investigate and give this patient the benefit of the doubt, as a small strategic focal lesion is theoretically possible. Plan MRI head wo contrast Additional Information for Stroke Stroke code: Last Known Well Time: (P) 2199 Date: (P) 08/31/[address] [facility], NIHSS: NIHSS Criteria 08/25/2018 Test Interval Baseline Exam Date 09/01/2018 Exam Time 1620 LOC 0 LOC Questions 0 LOC Commands 0 Best Gaze 0 Visual 0 Facial Palsy 0 Left Arm, Motor 0 Right Arm, Motor 0 Left Leg, Motor 0 Right Leg, Motor 0 Limb Ataxia 0 Sensory 0 Best Language 1 Dysarthria 0 Extinction/Inatten. 0 Total Score 1 t-PA Decision: Endovascular intervention considered?: (P) No Blake Cuellar MD 09/01/2018 18:20 Attestation: I saw and examined the patient with the resident 09/02/2018. I agree with the findings and plan of care documented in the resident's note. MRI without acute stroke. Patient continues to report ongoing difficulties that fluctuate but have improved. The patient asked whether it could havebeen a mini- stroke, to this our response was ans is that the MRI excludes that (to the greatest ability possible) if the symptoms remain and have waxed and waned. The MRI does show extensive, chronic, white matter changes that are compatible and consistent with his known history. It is possible that this history will predispose him to difficulties such as those that prompter the stroke code to called, one would anticipate that the patient would exhibit symptoms at times when he is stressed either medically or emotionally, and it would seem that there were external emotional stressors that could have contributed to this episode. No further recommendations at this time. Darien Jerez MD 09/02/2018 13:31 * Joanie Aviles DO - 08/15/2018 1809 EDT Neurology Consult Note Admit Date: 08/09/2018 Date of Service: 08/15/2018 Hospital Day: LOS: 6 days PCP: Laurie Wiggins Requesting Physician: Psychiatry Specialty Completing Consult: Neurology Code Status: Limitation of Treatment Reason for Consult: headache HPI: 63 yo male with PMH of Hep C, alcoholic liver cirrhosis s/p TIPS, substance abuse (alcohol andcocaine), who is currently admitted to [facility] with suicidal ideation. Neurology is consulted for headache. Patient's headache began about 3 weeks ago. Patient had been drinking heavily prior to admission, binging on a quart of vodka intermittently. About 3 weeks ago he hit the crown of his head when he slipped. The blow was hard enough that he developed a lump on his scalp. He thinks that his current headache started around that time, but he isn't sure if the blow preceded the headache or not. He developed a constant headache, which wraps around his head, which has gradually been worsening. It is usually a 7 or 8/10. He endorses sensitivity to both light and sound. He also feels like he is having a hard time finding his words, and slurring his speech occasionally. He has decreased concentration but this is not new. He denies any dizziness, visual changes, or a positional component to the headache. The only thing that really helped his headaches prior to coming to the hospital was alcohol. He tried ibuprofen too, and was taking a lot of ibuprofen for the headache, but it didn't help much. Of note, he was admitted to [facility] for a duodenal ulcer bleed in June of 2018 and was told not to take ibuprofen, but he said you gotta do what you gotta do. Patient reports concussion when he was 14 yo and he had headaches for about a month afterward. He has not had significant headaches since then, just a rare headache when he has a cold. No one in his family has headaches. PMH PSH Past Medical History: Diagnosis Date ??? Anemia [...] 20 years ago ??? TIPS PROCEDURE 01-28-2014 Social History Family History Social History Tobacco Use ??? Smoking status: Never Smoker ??? Smokeless tobacco: Never Used Substance Use Topics ??? Alcohol use: No Family History Problem Relation Age of Onset ??? Cancer Mother ??? Breast Cancer Mother ??? Alcohol Abuse Father ??? Cancer Father ??? Diabetes Father ??? Cancer Sister ??? Crohn's Disease Sister ??? Diabetes Sister ??? Cancer Brother ??? Anesthesia Problem Brother ??? Cancer Sister ??? Anesthesia Problem Sister Medications Current Facility-Administered Medications: acetaminophen (TYLENOL) tablet 500 mg oral Q6H PRN citalopram (CELEXA) tablet 20 mg oral DAILY docusate sodium (COLACE) capsule 100 mg oral Daily PRN hydrOXYzine (ATARAX) tablet 50 mg oral Q4H PRN lactulose (CHRONULAC) 20 gram/30 mL solution 30 mL oral Q6H PRN losartan (COZAAR) tablet 50 mg oral DAILY magnesium hydroxide (MILK OF MAGNESIA) 400 mg/5 mL suspension 30 mL oral Daily PRN nadolol (CORGARD) tablet 20 mg oral DAILY pantoprazole (PROTONIX) tablet 40 mg oral BID senna (SENOKOT) tablet 1 tablet oral AT BEDTIME PRN thiamine (VITAMIN B1) tablet 100 mg oral DAILY Allergies Allergies Allergen Reactions ??? Ambien [Zolpidem] Sleep-driving Review of Systems: General Review of Systems: A 12 point review of systems was performed, and was negative except for the pertinents above. Objective/Physical Exam: Vital Signs: Temp: 37.3 ??C (99.1 ??F) Pulse: 51 Resp: 14 BP: 122/58 SpO2: 96 % O2 Flow Rate (L/min): 0 l/min Pain: Patient Vitals for the past 8 hrs: Numeric Pain Level (Scale 1-10) 08/15/18 1712 7 08/15/18 1551 8 08/15/18 1026 8 Weight: No data found. Body mass index is 32.41 kg/m??. Neurological Exam: Mental status: Fully oriented. Does have difficulty recalling time line of last month. Slightly dysarthric at times. Speech rate slowed. States mood is terrible and I'm extremely anxious. Cranial nerves: CN I: Deferred CN II: Visual menard full to confrontation. No afferent pupillary defect noted. CN III-IV & : gaze conjugate; EOMI. PERRL 3mm-->2mm b/l. CN V: Normal masseter bulk, tone. V1-V3 intact to light touch. CN VII: face symmetric with motor intact CN VIII: Hearing is intact to voice. No nystagmus noted CN IX-X: Palate elevates symmetrically on activation. No hoarseness or dysarthria CN XI: Symmetric shoulder shrug. SCM/traps are full strength CN XII: Tongue protrusion midline, without deviation, atrophy, or fasciculations Motor: Strength: Right Left Shoulder abduction 5/5 5/5 Elbow flexion 5/5 5/5 Elbow extension 5/5 5/5 Wrist extension 5/5 5/5 Finger abduction 5/5 5/5 Finger extension 5/5 5/5 Grasp 5/5 5/5 Hip flexion 5/5 5/5 Knee flexion 5/5 5/5 Knee extension 5/5 5/5 Ankle plantarflexion 5/5 5/5 Ankle dorsiflexion 5/5 5/5 No pronator drift. Tone is normal without spasticity, and bulk is normal without atrophy. No tremoror other abnormal movements noted. Reflexes: Reflexes are 2+ and symmetric at the biceps, triceps, brachioradialis, patellae and Achilles tendons bilaterally. Plantar response is flexor bilaterally. Sensory: Sensation is intact to light touch, vibration and temperature in all four extremities. Coordination: FNF and HTS intact bilaterally. Gait: Gait is asymmetric (marked scoliosis). Patient defers to try tandem gait. Data Review: CT head 08/15/2018: marked global atrophy with hydrocephalus ex vacuo Assessment: 63 yo male with PMH of Hep C, alcoholic liver cirrhosis s/p TIPS, substance abuse (alcohol and cocaine), who is currently admitted to [facility] with suicidal ideation. Neurology is consulted for headache which he developed 3 weeks ago. His headache is severe with associated phonophobia and photophobia. Although he does not have a previous diagnosis of migraine, this current headache is migrainous in quality. He cannot recall whether the blow to his head precipitated the headache, but he thinks that the headache worsened after the blow to his head. Therefore this headache may be a post-traumatic or post- concussive headache; these are typically treated similarly to migraine and also typically resolve. Of note, the last time thepatient had headaches was following a concussion at age 14. Would proceed with treatment as if thiswere a migraine, with abortive medications. Recommendations: Addendum in bold: -No NSAIDS, including ibuprofen and naproxen. Patient admitted in June with duodenal ulcer bleed -Acute abortive migraine therapy -1 L NS - compazine IV 10 mg - magnesium 2 mg IV now Recommend repeating NS, compazine, and magnesium for a second time, with addition of 1000 mg IV depakote. Daily vitamins: - Coenzyme Q10 daily - Magnesium 400 mg daily (most common side effect is loose stool) Will likely pursue occipital nerve block tomorrow, 08/17. If these therapies are not beneficial, would consider whether ketamine infusion is feasible on floor and not prohibited by other patient factors. Patient staffed with Dr. Aviles. Marianna Walker MD 08/15/2018 18:13 NEUROLOGY INPATIENT SUPERVISORY NOTE I personally saw, examined and evaluated Mr.James Denise Urbina on 08/16/[address] Walker and the rest of the inpatient Neurology team. I agree with Dr. Walker history, examination, assessment and plan except as modified below. Please refer to his note as above for further details. Plan for nerve block on 08/17 if headache continues. Joanie Aviles DO 08/17/18 8:40 documented in this encounter Miscellaneous Notes * Plan of Care - Declan Angeles RN - 09/12/2018 1059 EDT Problem: Daily Care Plan Goals Goal: Care Plan Documentation Nursing Discharge Note D: Patient noted with discharge orders to: [facility]. A: Prescriptions faxed to pharmacy. Reviewed discharge instructions and prescriptions with Patient Belongings collected and sent home with patient. R: Patient verbalized understanding of discharge instructions and denied further questions. DECLAN ANGELES RN 09/12/2018 10:59 * Plan of Care - Sharon Flores RN - 09/12/2018 0036 EDT Problem: Daily Care Plan Goals Goal: Care Plan Documentation Outcome: Not Met This Shift 09/12/18 0035 Care Plan Focus Area of Focus Sleep Goal This Shift sleeps 6-8 hours. Data: See observation record. Action: Continued on every 30 minute observations through the night. Monitor vital signs.Monitor for mood, behavior, safety, pain, sleep. Response: Appeared to sleep comfortably until 0231 when he requested/received lactulose po. He stated he had a BM. He returned to sleep. He was in the shower at 0430 when he attempted to show his head for observations when he slipped and fell which was observed. He stated he had no injury. He declined to wait on the floor for an MD assessment. He finished his shower and dressed. Vital signs were taken. MD and ANC were notified. MD was to the floor to assess the patient. Patient continues to state no injury. Total sleep of 3 hours. * Plan of Care - Julienne Singh RN - 09/11/20182045 EDT Problem: Daily Care Plan Goals Goal: Care Plan Documentation Outcome: Ongoing 09/11/182044 Care Plan Focus Goal This Shift Patient remained safe on the unit Data: Patient napped at the beginning of the shift. Patient went to group x 1. Social with peers. Looking forward to discharge tomorrow. Ate dinner in the dining room. Action: Assessed for SI/HI and self harm. Provided 1:1. Encouraged groups and spending time out of room. Administered meds. Monitored safety on the unit. Response: Mood improved, affect brighter. Engaged on the unit. No complaints of pain. Denied si/hi.Pleasant on interaction. Appetite good. Future oriented. Julienne Singh RN 09/11/2018 2200 * Plan of Care - Shelia Rowe RN - 09/11/2018 1551 EDT Problem: Daily Care Plan Goals Goal: Care Plan Documentation Outcome: Met This Shift Data: Pt's goal go on a pass Denies si, hi and hallucinations. Pass from 1000 to 1300. Pt [place] [employer] to [place] supplies for discharge tomorrow. Action: Offer 1:`1 , encourage group Response: Pt pleasant, kind and future oriented. nam Rowe RN 09/11/2018 15:47 * Plan of Care - Sharon Flores RN - 09/11/2018 0625 EDT Problem: Daily Care Plan Goals Goal: Care Plan Documentation Outcome: Not Met This Shift 09/11/18 0042 Care Plan Focus Area of Focus Sleep Goal This Shift sleeps 6-8 hours. Data: See observation record. Action: Continued on every 30 minute observations through the night. Monitor vital signs.Monitor for mood, behavior, safety, pain, sleep. Response: Appeared to sleep 4.5 hours. Spending time on phone and reading when awake. * Plan of Care - Klaudia Santos RN - 09/10/2018 2316 EDT Problem: Daily Care Plan Goals Goal: Care Plan Documentation Outcome: Ongoing 09/10/18 1917 Care Plan Focus Area of Focus Safety Goal This Shift pt will remain safe on unit this shift Data: Patient social on unit upon assuming care, denies pain, reports feeling hopeful about future plans upon discharge. Action: Monitored with routine checks, 1:1 therapeutic support offered. Response: Patient social with peers on unit throughout the evening, noted to be in bed at 2140 listening to audio book, appeared asleep. Patient awake at 2200, continues to deny pain. Patient reports3 BM's today with last BM around 1900. Klaudia Santos RN 09/10/2018 23:04 * Plan of Care - Judy Hull RN - 09/10/2018 1248 EDT Problem: Daily Care Plan Goals Goal: Care Plan Documentation Outcome: Ongoing 09/10/18 0800 Care Plan Focus Goal This Shift pt will remain safe on unit this shift Data: Patient awake at shift change, in a positive mood stating he was looking forward to going [employer] on Tuesday. Patient also eager to report 2 bowel movements this morning. Patient denies SI/HI/pain. Patient attended group this shift and ate breakfast and lunch in the milieu. Action: Routine observations completed, patient assessed for pain throughout shift. Patient offered1:1 support. Response: Patient requesting pass for Tuesday to leave with a friend in order to prepare for DC on Tuesday. Will discuss with oncoming RN to discuss with MD tomorrow am. Patient remains safe on unit. JUDY HULL RN 09/10/2018 12:45 * Plan of Care - Debi Benson RN - 09/10/2018 0046 EDT Problem: Daily Care Plan Goals Goal: Care Plan Documentation Outcome: Ongoing 09/09/18 2340 Care Plan Focus Area of Focus Safety Goal This Shift pt will remain safe DATA: Alonzo appeared asleep in bed at start of shift. No sign of distress observed or reported. No complaint of pain or discomfort. This am Alonzo spoke about his upcoming d/c and how he feels ready for the next step. Alonzo states he is thankful for the friendships I have made here. ACTION: Routine observation continued as ordered for safety. Monitor safety and sleep. Promote sleep. Available for needs. RESPONSE: Alonzo remains safe. As of 599 Alonzo is documented to have appeared to sleep ~3 hours this shift. 24 hour sleep total=~9 hours. * Plan of Care - Chirag Kapadia RN - 09/09/2018 2245 EDT Problem: Daily Care Plan Goals Goal: Care Plan Documentation 09/09/18 1600 Care Plan Focus Area of Focus Safety Goal This Shift pt will remain safe in unit Safety Data: Patient sleeping at start of shift, and after awaking from a nap expressed his frustration about the comments he had heard about the group meeting earlier in the day. Alonzo had talked with who was agitated about his interaction with provider Chantal Brewer, and Alonzo was very supportive of MHstating he didn't do anything wrong they need to have therapist here to talk to if we can't talkto each other. Alonzo was demanding to speak to provider Chantal to let her know what he thought but accepted that Chantal was not available and he would talk to the doctors tomorrow. I spent time speaking with Alonzo later in the shift regarding his discharge plans this coming Tuesday and he expressed that he feels ready for this transition. Alonzo reviewed his plans for housing and AA meeting which seem very positive as well as some of his legal challenges. Patient denied any SIor HI. Action: Patient offered supportive 1:1 time. Response: Patient remains safe in unit and is preparing for transition back to the community. Chirag Kapadia RN 09/09/2018 22:32 * Plan of Care - Nato Perez RN - 09/09/2018 1501 EDT Problem: Daily Care Plan Goals Goal: Care Plan Documentation 09/09/18 0900 Care Plan Focus Area of Focus Safety Goal This Shift Will maintain safety Data: Pt Is voluntary,NURYS 3,routine observation. Pt denies SI/HI/AVH and pain. characterizes mood as great. Affect is falt. The pt is alert and oriented X 3, calm and cooperative. Compliant with medications as ordered. Pt mostly isolative in his room in the AM. Attended two groups in the afternoon. Slept a total of two hours this shift. At 1300, The pt stated that he had already had 2 BM's today. Stated that he was on track to meet his goal of 3-4 BM's/day. Further doses of lactulose held this shift. New BM chart hung in pt's room. The pt would like a pass this Tuesday. A friend and former patient is going to pick him up to do some shopping for his impending DC. Will continue to monitor. Action: Assessed for mood, affect, and pain. Monitored for safety. RN support available throughout shift. Medications administrated per order (see MAR). Response: Pt interacted appropriately with staff and peers. Visible in milieu in the afternoon. Able to make needs known. Behavior in control. No outstanding needs/concerns. * Plan of Care - Sienna Ham RN - 09/09/2018 0627 EDT Problem: Daily Care Plan Goals Goal: Care Plan Documentation Outcome: Met This Shift 09/09/18 0000 Care Plan Focus Area of Focus Sleep Goal This Shift patient will stay asleep for at least 6hrs this shift Data: Patient slept for 6 hrs this shift with some intermittence. Action: Monitor for safety and sleep. Response: Patient remain safe. No complaint. Will continue to monitor. Sienna Ham RN 09/09/2018 6:27 * Plan of Care - Bette Rashid RN - 09/08/2018 2149 EDT Problem: Daily Care Plan Goals Goal: Care Plan Documentation 09/08/18 1600 Care Plan Focus Area of Focus Safety Goal This Shift pt will remain safe on unit Data: The patient denied SI/HI. He has been out of his room, attended group and ate with others. Hehas been quiet. He requested his medication at 2000. He is presently in bed. Action:Administered medication. Monitored behavior, pain and thoughts of self harm. Provided support and focused on patient strengths. Response: The patient remains safe on unit. Bette Rashid RN 09/08/2018 21:44 * Plan of Care - Shaina Cadena RN - 09/08/2018 1310 EDT Problem: Daily Care Plan Goals Goal: Care Plan Documentation 09/08/18 1100 Care Plan Focus Area of Focus Communication Goal This Shift maintain open communication Data: Pt LOS 31 days, NURYS 3, routine voluntary. This morning the pt is feeling good, reporting that his depression and anxiety is 1-2/10. He was up and had breakfast in the milieu with other pts. He was encouragiing and was observed opening breakfast items for another pt. Action: Presented an openness to patient for conversation on multiple occasions. Patient revealed to student and physician he is still having some anger management issues and is working on letting things go. He discussed he doesn't want to call acquaintances he has met here because he says they have enough on their plate and he doesn't want to be a burden. Reported sadness to see patients get discharged. He feels like he has made some good connections here. Goals include working on his depression workbook and sorting out some of his bills. Román is too far away (due to loss of license) for employment however there is a grocery store in walking distance that may be an option for employment. He is worried that if he works more than 24 hrs/week that he will not be eligible to receive disability benefits. He has concerns about feeling ready to go home at the end of the stay at the [facility]. 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 The Dr mentioned to seek therapy with that focus. Response: Patient was able to verbalize thoughts and feelings present in his mind. Patient attitudeand affect was unchanged. Ziyad Benavidez 09/08/2018 12:50 * Plan of Care - Luci Blanchard RN - 09/08/2018 0645 EDT Problem: Daily Care Plan Goals Goal: Care Plan Documentation Outcome: Met This Shift 09/08/18 0000 Care Plan Focus Area of Focus Sleep Goal This Shift adequate sleep Data: Pt is sleeping at the change of the shift, appears comfortable. Action: Monitored for safety, observation as ordered, available for 1;1. Response: Pt slept 5 hours , was in the room 325 at 0500. Now pt is back to sleep. LUCI BLANCHARD RN 09/08/2018 6:40 * Plan of Care - Dhara Anne RN - 09/07/2018 2246 EDT Problem: Daily Care Plan Goals Goal: Care Plan Documentation Outcome: Met This Shift Data: Pt was taking a nap at beginning of shift. Pt is forward thinking, polite, open & truthful about his daughter? s & his ? s in 2006. Action: Provided medication (see MAR), Offered therapeutic communication, encouragement & support. Assessed for mood and depression symptoms. Encouraged independence, groups & socializing in milieu. Assessed pain/SI/HI/AH Response: Pt ate dinner in the milieu, social w/peers & went to group at 1845. Pt reported feeling ???sad from his peers being discharged?? . Pt researched w/telegraphic typewriter operator about [facility] concerning his upcoming discharge. Pt was expressive about his past addictions. Pt denies pain/SI/HI/AH &denies further needs at this time. * Plan of Care - Janay Villar RN - 09/07/2018 1405 EDT Problem: Daily Care Plan Goals Goal: Care Plan Documentation 09/07/18 1324 Care Plan Focus Area of Focus Psychosocial Goal This Shift Pt wiil attend a group this shift Data: Pt continues shift as voluntary admission NURYS 3 on routine observation. Pt denies SI/HI/AVH and pain. Mood appeared to be mixed. Compliant with medications as ordered. Pt had a foreign student adviser teacher this shift - please, see his note. Action: Assessed for mood, affect, and pain. Maintained safety per order. 1:1 offered, support offered by RN throughout shift. Continue to monitor. Response: Pt is visible in milieu, social, attended a morning group. Able to make needs known. Behavior in control. Continue to be safe on the unit. JANAY VILLAR RN 09/07/2018 13:44 * Plan of Care - Shaina Cadena RN - 09/07/2018 1325 EDT Problem: Daily Care Plan Goals Goal: Care Plan Documentation 09/07/18 0813 Care Plan Focus Area of Focus Psychosocial Goal This Shift pt will express feelings and make needs known Data: Pt LOS is 29 days, addmitted for depression and suicidal ideation. Pt here voluntarily, is NURYS 3 with routine observastion. Pt was awake at change of shift. AOX3 and appropriate behavior while interacting with student and staff. Stated he was feeling pretty good today and he had slept more than usual over night. He stated that he did not have thoughts of harming himself and he felt he was thinking clearly. He shared his workbook with many responses filled in about self-worth. He shared hewas going to say goodbye to a couple of other pts from the floor who are planning to be discharged.Pt open and willing to share his goals for the day, which included calling the car dealership and having them take his car back. He discussed that while he had gotten in trouble with the law with possible residential time resulting, he was taking his recovery and sobriety one day at a time. He was willingto make his needs known. Action: Approached patient this morning to make sure he knew student was here for him, and he should free to share his thoughts, feelings, and make his needs known. Hourly checks performed to try to anticipate needs. Response: Throughout the day this pt has been open to discuss needs. The pt has been social today and ambulating around the [place]. At end of shift, resting in his room. Ziyad Benavidez 09/07/2018 13:11 * Plan of Care - Nancy Ventura RN - 09/07/2018 0424 EDT Problem: Daily Care Plan Goals Goal: Care Plan Documentation 09/07/18 0000 Care Plan Focus Area of Focus Sleep Goal This Shift s;eep 6--8 hours Data: pt asleep at change of shift, documented awake X4 during noc, denied concerns when awake Action: routine observations, assessed/available for needs Response: as of 0600 pt slept intermittently 5.5 hours this shift, still sleeping 0600 NANCY VENTURA RN 09/07/2018 4:22 * Plan of Care - Jennifer Quiles - 09/06/2018 2156 EDT Problem: Daily Care Plan Goals Goal: Care Plan Documentation Data: JW stable this evening. No episodes of dizziness or weakness reported or observed. Mood was okay without endorsement of SI or HI. Went for U/S and had POCT glucose testing with HgbA1c orderedfor a.m. Socialized with peers in the milieu. Went to bed early at 8:30 pm. No pain. BM x 3. No watery BMs. Action: Created a safe, therapeutic, and developmentally appropriate environment conducive to care,implemented evidence-based nursing interventions specific to the plan of care, collaborated with interdisciplinary team, administered medications and other treatments appropriate to patient situation, responded proactively to changes in patient condition to prevent or minimize adverse patient outcomes. Response: Pt remained safe on unit and was visualized ambulating with usual gait. No neurological changes observed or reported. JENNIFER QUILES RN 09/06/2018 21:54 * Psych Treatment Team - Sonali Kaufman RN - 09/06/2018 1645 EDT Psychiatry Multidisciplinary Treatment Plan - Update Date: 09/06/2018 Time: 16:45 Estimated Discharge Date: 09/15/18 IS THERE A CHANGE IN LEGAL STATUS?: No IS THERE A CHANGE IN DIAGNOSIS?: No Psychiatric Diagnosis: Major Depression, severe, recurrent, Alcohol Use Disorder Note Type: Update ARE THERE NEW PROBLEMS?: No PROBLEM LIST: PROBLEM: Depression Is there a change in target symptoms?: No Depression target symptoms: low mood, sleep alteration, diminished interest/pleasure, social isolation, decreased appetite, guilt/worthlessness, reduced energy, reduced concentration, indecisiveness,SI, hopelessness and helplessness Depression initial goals: reduction in target symptoms, tolerance of medication and engagement in psychotherapy sessions Progress toward short-term goals/Response to Interventions: Improved mood. Social, full range. Attending group Short-term goals have been attained. PROBLEM: SI/Self injury Is there a change in target symptoms?: No Self injury target symptoms: feelings of worthlessness, hopelessness, helplessness, suicidal thoughts, suicidal plan, status-post suicide attempt and limited coping skills Self injury initial goals: reduction in target symptoms, decreased SI/self-harm and improved copingskills Progress toward short-term goals/Response to Interventions: Denies SI. More future-oriented. PROBLEM: Substance use Is there a change in target symptoms?: No Substance use target symptoms: misuse of (comment), use impacting daily functioning, use affecting medical status, withdrawal sx, legal consequences of use of substance and continued craving (Alcohol) Substance use initial goals: reduction in target symptoms, safe withdrawal from symptoms, reductionin cravings, avoidance of medications which could lead to abuse, referral to counseling and abstinence from substance Progress toward short-term goals/Response to Interventions: Willing to go to inpatient rehab. Short-term goals have been attained. PROBLEM: Multiple medical problems Is there a change in target symptoms?: No Multiple medical problems target symptoms: Headache resolved however , today is confused w/ dysphasia and need to r/o stroke Multiple medical problems initial goals: increased stability of medical conditions, compliance withrecommended medications and cooperation w/ recommended medical lab testing/imaging/investigation Progress toward short-term goals/Response to Interventions: Word-finding difficulty at the end of last week with intermittent sedation/slurring. Progress toward short-term goals/Response to Interventions: LOCUS Risk of Harm: Current locus of harm: 3 Level of Patient Observation: Routine (Q hour day / rena, Q 1/2 hour night) CHANGES IN TREATMENT PLANNING: CHANGES IN SUICIDE RISK FACTORS (LOCUS Risk of Harm and Level of Patient Observation): Comment on changes related to modifiable and protective risk factors: No active SI and more future-oriented. Mood improved. MEDICAL: ARE THERE CHANGES IN TREATMENT PLANNING?: No Changes in Medications. Lowering Celexa to 10mg REASONS FOR CONTINUED INPATIENT TREATMENT: Progress since admission not sufficient to ensure adequate psycho-social functioning outside of the hospital and Need for adjustment and monitoring of medication dosage NURSING: ARE THERE CHANGES IN TREATMENT PLANNING?: No PSYCHOLOGICAL: ARE THERE CHANGES IN TREATMENT PLANNING?: No SOCIAL: COLLABORATIVE EFFORTS: Collaborated with Medical Team and Family DISCHARGE PLANS: Alonzo will discharge to [facility] with follow up through [facility]. Treatment Team Members Resident MD: n/a RN: Nancy Ventura RN Therapist: EUGENIO Oneil Operating Room Coordinator:CISCO Guillen PharmD: Attending physician statement/signature: Based on the information documented in this treatment plan update and in the medical record, I certify that: ??? Inpatient Psychiatric Hospital Services furnished since the previous certification or recertification were, and continue to be, medically necessary for either treatment which could reasonably be expected to improve the patient's condition or for diagnostic study. ??? As described in the medical record, the services furnished since the previous certification or recertification were, and continue to be, intensive treatment services, and or admission and relatedservices necessary for diagnostic study. ??? As documented in the medical record, this patient meets, on a daily basis, active treatment furnished directly by or requiring the supervision of inpatient psychiatric facility personnel. ??? Treatment is expected to improve this patient's condition. Sonali Mills MD Attending Psychiatrist * Plan of Care - Julienne Suárez RN - 09/06/2018 6987 EDT Problem: Daily Care Plan Goals Goal: Care Plan Documentation Outcome: Met This Shift 09/06/18 0912 Care Plan Focus Area of Focus Safety Goal This Shift pt will remain safe Data: Pt was awake this morning in the milieu. Pleasant and polite. Made eye contact during conversations. Ate breakfast with peers as he socialized. Stated he slept a solid 4 hours which he found was good. No voiced SI/SH thoughts. No c/o pain. Observed in morning groups and continued to spend time in the milieu through lunch. Reported an improvement in his ability to carry on a conversation. Having slightly hard, formed BMs. Keeping track of these in his room. Action: Monitor behavior. Offered 1:1 supportive time. Meds as ordered. Continue to enc pt to join unit activities. Response: Coop and approp. Participating in unit activities, social with his peers. Pt has maintained safety on the unit ADDENDUM: 1500 Pt in his room, c/o feeling dizzy with a heavy head during group. Orthostatic vs checked ( see flowsheets ). Pt encouraged to try to nap and call staff If he wants to get up and continues to feel dizzy. VS given to MS. Julienne Suárez RN 09/06/2018 13:28 * Plan of Care - Laine Pichardo RN - 09/06/2018 0047 EDT Problem: Daily Care Plan Goals Goal: Care Plan Documentation 09/05/18 2330 Care Plan Focus Area of Focus Sleep Goal This Shift sleeps 6-8 hours overnight [id number] Data: Frequent, Voluntary, Level 3. Pt appeared asleep at start of shift. No reports of any pain/discomfort. Pt reported that he was woken up by a phone call he had received shortly before midnight. Observed in the kitchen to grab a snack. He reported having multiple stools in a short period of time. He keeps track of them on a piece of paper in his room. He was encouraged to increase his PO intake of fluids to stay well hydrated. He rang his call salas once overnight. He stated that he wanted to see how well [he] could speak. During the 1:1, he spoke about how his potential diagnosis of Alzheimer's is making him anxious. He also spoke about the people that he hurt emotionally during his li fe due to his drinking. He reported that he has been reading about liver transplants. His speech was clear without much latency. He received some tea before trying to get back to sleep. Only slept briefly. Spent time watching TV in the activity room with a peer. Action: Monitor for safety. Checks as ordered. Promote sleep. Available for any needs throughout the shift. Response: Pt appeared to sleep 2.75 hours overnight. No needs expressed at this time. Has remained safe on the unit. Laine Pichardo RN 09/06/2018 0:43 * Plan of Care - Dhara Anne RN - 09/05/2018 2466 EDT Problem: Daily Care Plan Goals Goal: Care Plan Documentation Outcome: Met This Shift 09/05/181842 Care Plan Focus Area of Focus Safety Goal This Shift Patient will remain safe throughout shift. [facility] care [id number] Data: Pt requested to sleep at beginning of shift. Pt did not awake during shift. Action: Provided & promoted a therapeutic sleep environment, available for needs throughout shift, preformed visual checks as ordered. Response: Pt reported he has not been sleeping well the past few nights. Pt requested rest & sleep at [facility] & pt was OOB at 2044. Pt had a peer (Kiley) visit w/him outside his room w/chair in the doorway. Pt told the telegraphic typewriter operator ???this is not a crush or love or anything?? . Pt remained safe, remained in his room this shift w/behavior in control. Pt slept 0. 15 hrs this shift. Will continue to mon itor. * Plan of Care - Katina Ibanez RN - 09/05/2018 3347 EDT Problem: Daily Care Plan Goals Goal: Care Plan Documentation 09/05/18 460 Care Plan Focus Area of Focus Safety Goal This Shift Patient will remain safe throughout shift. Data: Patient here with MDD with recent hepatic encephalopathy. BP 138/63 (BP Cuff Location: Right arm, Patient Position: Supine) Pulse 60 Temp 37.2 ??C (99 ??F) (Temporal) Resp 14 Ht 157.5 cm (62) Wt 84.1 kg (185 lb 6.4 oz) SpO2 96% BMI 33.91 kg/m?? . Speech is hesitant and difficulty finding words. He states that he is sad at how his disease process is manifesting. People drink just as much and don't have this. He also discussed that they are looking into a diagnosis of earlyalzheimer's. He stated that if he had that and he declined that he would think about assisted suicide - He denied being suicidal. Action: Provided a 1:1 therapeutic environment. Frequent checks continued. Response: Patient remains safe. Will continue to monitor. KATINA IBANEZ RN 09/05/2018 18:53 * Plan of Care - Julienne Suárez RN - 09/05/2018 1414 EDT Problem: Daily Care Plan Goals Goal: Care Plan Documentation Outcome: Met This Shift 09/05/18 0931 Care Plan Focus Area of Focus Safety Goal This Shift pt will remain safe Data: Pt was sleeping this morning, awake for vs and morning meds. Declined breakfast. Reported poor sleep last night, being wakeful and not being able to go back to sleep. Denied SI/SH thoughts, butexpressing frustration with his inability to, banter due to his slow thoughts. Compared this to acomputer having a blip. Showered and joined morning group, then napped. Ate lunch with peers. Shaved and returned to bed. Action: Monitor behavior. Offered 1:1 supportive time. Meds as ordered. Continue to enc pt to join unit activities. On frequent observation level 3. Response: Able to carry on brief conversations with thoughtful periods to find words. Coop and approp. Pt has maintained safety on the unit. Julienne Suárez RN 09/05/2018 14:07 * Plan of Care - Paula Lezama RN - 09/05/2018 0546 EDT Problem: Daily Care Plan Goals Goal: Care Plan Documentation Outcome: Met This Shift 09/04/181999 Care Plan Focus Area of Focus Other Goal This Shift Pt will have another BM tonight Data: Pt sleeping at change of shift and has only had 2 BMs today. Action: Administer lactulose upon waking. 1:1 spent listening to pt voice concerns r/t d/c and possible residential time. Response: Pt has had 6 formed BMs since this afternoon. Speech and focus clearer after a few hours of sleep. No pain, or SI/HI reported. Pt encouraged to use coping skills when he gets anxious about his discharge. Woke intermittently but overall appeared to get 6 hrs of sleep. Paula Lezama RN 09/05/2018 5:33 * Plan of Care - Renu Watters RN - 09/04/2018 1914 EDT Problem: Daily Care Plan Goals Goal: Care Plan Documentation Outcome: Ongoing 09/04/18 1600 Care Plan Focus Area of Focus Safety Goal This Shift to keep the pt safe SHIFT: [id number] Problem: Daily Care Plan Goals Goal: Care Plan Documentation Outcome: Ongoing ?? 09/04/18 0753 Care Plan Focus Area of Focus Safety Goal This Shift to keep the pt safe DATA:?Pt's Observation level: Frequent/Voluntary/3. Patient awake in bed at the beginning of this telegraphic typewriter operator's shift. A/o to person, place, and time; Denies SI/HI/AVH/Pain. Pt is polite and cooperative; Mood is mixed; affect is anxious. Behavior over talkative in the start of this telegraphic typewriter operator's shift; however, as the day progressed pt became more slow in his speech, still able to have a full conversation, and not confused, just slow in answering questions. pt spent most of the time in the milieu, butdid come back to his room few times just to rest. Also attended groups. Pt is social in the milieu.ADLs and appetite good. Pt is med compliant. Pt asked and received po prn lactulose at 1438. Pt declined the AM lactulose dose as pt had a watery stool last night and a loose stool around 1:30 AM. Pt had another formed stool in the afternoon. Pt does gets anxious when he has hard time finding specific words which makes his speech worse which makes him more anxious. When pt relaxes his speech gets better. MD day habilitation supervisor aware and case discussed. Please refer to Dr. Lynch's note. ? ACTION:??Pt assessed. Meds given as ordered. Monitored for safety as ordered and as needed. Offeredone to one supportive interaction. Encouraged independence. ??Encouraged group participation and milieu interaction as tolerated. Available for additional needs throughout the shift. ? RESPONSE:??Attended Groups. Pt ate breakfast, lunch and dinner in the kitchen. Patient remains compliant with medications. Able to make needs known. Behavior remains in control. Patient has remained safe on the unit during this telegraphic typewriter operator's shift. Continue to monitor the patient as per orders. Will endorse to oncoming RN. Pt denies having another BM since last lactulose dose. Pt called this telegraphic typewriter operator ~1700 and told that he is DNR also told this telegraphic typewriter operator to get a box full of papers that he brought with him to look for DNR form. Staff found the box pt was referring to and this telegraphic typewriter operator took the papersto the pt. Pt took out his DNR/DNI form to show and for us to keep for the record. This telegraphic typewriter operator called the day habilitation supervisor MD Adrian Rivas to discuss the code status as in computer pt's status is Full Code. MD has put a note in pt's chart please refer to MDs clear instructions. For now pt remains Full Codeuntil further evaluation of capacity and the resolution of the discrepancy in the code status. Thiswriter has informed the radio time sales supervisor of this information. The form that pt gave to this telegraphic typewriter operator has been placed in the patient's paper chart. Will endorse to oncoming RN. ? RENU WATTERS RN 09/04/2018 18:55 ?? * Plan of Care - Romy Velazquez RN - 09/04/2018 0023 EDT Problem: Daily Care Plan Goals Goal: Care Plan Documentation Outcome: Met This Shift 09/03/18 2330 Care Plan Focus Area of Focus Safety Goal This Shift Will remain safe on unit. 2300 - 0700 Data: Patient resting in bed at start of shift. No complaints of pain/discomfort. Sleeping since 2144. Up briefly at change of shift and requested to speak with this RN, but patient was back asleep when checked on. Up again later reporting a BM (mixed) and trouble sleeping. Declines pharmaceuticals. My head feels heavy. Sometimes I lose my thoughts. I'm just going to try to go back to sleep. Slept intermittently. Showered. Remains voluntary / level III. Action: Maintained on frequent observations for safety. Response: As of 0600, patient appeared to sleep ~2 hours overnight. Total hours of sleep over last 24 = ~5. * Plan of Care - Rabia Rodgers RN - 09/03/20182038 EDT Problem: Daily Care Plan Goals Goal: Care Plan Documentation 09/03/18 1540 Care Plan Focus Area of Focus Psychosocial Goal This Shift Pt will attend group Data: Patient was napping at start of shift. Denied SI/HI, no complaints of pain. A&0x3, NAD. He is pleasant, and engages with staff and peers, often making jokes. Patient's speech is clear, however at times he still struggles to find words. Attended groups and garden. Appetite good. Patient reported 1 loose, watery stool this shift. MD notified. Complaint with HS medications. Action: Assessed SI/HI/pain, A/V hallucinations, provided 1:1 support, encouraged groups and participation in the milieu, provided assistance with ADLs. Coordinated care with treatment team, administered medications as ordered and monitored for mood, behavior and safety. Response: Patient was able to maintain safety on the unit. * Plan of Care - Tl Tobin RN - 09/03/2018 1220 EDT Problem: Daily Care Plan Goals Goal: Care Plan Documentation Outcome: Ongoing Data: Pt asleep at change of shift. awake by 0800, Pt pleasant , polite, engaging with staff and peers. Denies pain or SI. Speech is clear. Reports being able to have light conversation without effort but struggle when asked questions when asked for more information on this pt reports having difficult concentrating and finding words to responds to questions. Pt states that he has noticed a decrease over the last 6 months in short term memory. Pt reports 1 formed bowel movement since 0100 today. Received scheduled lactulose. Action: monitored for safety. Medications administered per orders. (See MAR). Prn lactulose given at 1230 Response: Pt remains safe on unit Tl Tobin RN 09/03/2018 12:14 * Plan of Care - Aimee Colvin RN - 09/03/2018 0644 EDT Problem: Daily Care Plan Goals Goal: Care Plan Documentation 09/03/18 0000 Care Plan Focus Area of Focus Sleep Goal This Shift pt will sleep 6-8 hours Data: Pt in bed and appeared asleep at the change of shift. Upon check pt was awake and remained awake for most of the shift. Action: Monitor for safety, Therapeutic listening, administer medication, Response: Pt reported having a hard difficult BM. Reviewed reported pt BMs, made a chart for pt to document BMs to assist with Lactulose administration and had a PRN dose of lactulose. Pt wanted to engage with this nurse complains of difficulty with word find. And was able to describe contributing factors to his latency. Lack of sleep being one of them. Pt was unable to sleep with 1.5 hours of sleep for a total of 2.5 daily hours. Later in the morning pt wearing a paper crown. Aimee Colvin RN 09/03/2018 6:39 * Plan of Care - Rabia Rodgers RN - 09/02/2018 2159 EDT Problem: Daily Care Plan Goals Goal: Care Plan Documentation 09/02/18 1545 Care Plan Focus Area of Focus Psychosocial Goal This Shift Pt will attend group Data: Patient was sleeping at start of shift and expressed relief being able to nap today. He is pleasant and calm. Denied SI/HI. No c/o pain. A&O x 3. VSS. NAD. Speech clear, but at times he hasdifficulty finishing thoughts or finding words. Patient was out in the milieu social with peers. Heshowered and shaved. Reported 1 loose stool this evening and several last shift (see previous RN not e), lactulose titration held and MD notified. Patient educated to let RN know when he has a BM. Compliant with HS medications. Action: Assessed SI/HI/pain, A/V hallucinations, provided 1:1 support, encouraged groups and participation in the milieu, provided assistance with ADLs. Coordinated care with treatment team, administered medications as ordered and monitored for mood, behavior and safety. Response: Patient was able to maintain safety on the unit. * Plan of Care - Tl Tobin RN - 09/02/2018 1415 EDT Problem: Daily Care Plan Goals Goal: Care Plan Documentation Outcome: Ongoing Data: Pt asleep at start of shift awoken for MRI by 0800, reports no pain, some improvement noted in ability to find words as well as express them. Slight slurring of speech noted. Denies SI. Good eye contact. Action: Pt monitored for safety, medications administered per orders. Pt transported to MRI returned without incident. Neurology on floor to see pt. Recheck of Vs due to elevated BP in morning MD aware thru alpha page. S/w MD Garzon who ordered prn lactulose to titrate to 3-4 BM a day. Pt reports 5 since 2300 last night one being watery so medication not given. Pt attended groups, active on milieu. Social with peers. Response:pt remains safe on unit. lT Tobin RN 09/02/2018 14:07 * Plan of Care - Mahnaz Moss RN - 09/02/2018 0213 EDT Problem: Daily Care Plan Goals Goal: Care Plan Documentation Outcome: Ongoing 09/02/18 0015 Care Plan Focus Area of Focus Sleep Goal This Shift Pt will remain asleep for at least 6 hours this shift Data: Time of care 2300 to 0330. Pt continues as voluntary level 3 on frequent observation. Awake at start of shift. Reported feeling well-cared for during episode of confusion earlier. Denied physical pain. Reported feeling better than earlier today. Pt able to speak clearly. Action: Safety maintained through observations as ordered. RN available for needs throughout shift.Sleep promoted. Medications administered as ordered (see MAR). Response: Pt remained safe on unit. Mahnaz Moss RN 09/02/2018 2:09 * Psych Treatment Team - Sonali Kaufman RN - 09/01/2018 1843 EDT Psychiatry Multidisciplinary Treatment Plan - Update Date: 09/01/2018 Time: 18:13 Estimated Discharge Date: 09/11/18 IS THERE A CHANGE IN LEGAL STATUS?: No IS THERE A CHANGE IN DIAGNOSIS?: No Psychiatric Diagnosis: Major Depression, severe, recurrent, Alcohol Use Disorder Note Type: Update ARE THERE NEW PROBLEMS?: No PROBLEM LIST: PROBLEM: Depression Is there a change in target symptoms?: No Depression target symptoms: low mood, sleep alteration, diminished interest/pleasure, social isolation, decreased appetite, guilt/worthlessness, reduced energy, reduced concentration, indecisiveness,SI, hopelessness and helplessness Depression initial goals: reduction in target symptoms, tolerance of medication and engagement in psychotherapy sessions Progress toward short-term goals/Response to Interventions: Improved mood. Social, full range. Attending group Short-term goals have been attained. PROBLEM: SI/Self injury Is there a change in target symptoms?: No Self injury target symptoms: feelings of worthlessness, hopelessness, helplessness, suicidal thoughts, suicidal plan, status-post suicide attempt and limited coping skills Self injury initial goals: reduction in target symptoms, decreased SI/self-harm and improved copingskills Progress toward short-term goals/Response to Interventions: Less SI, more hopeful and future-oriented PROBLEM: Substance use Is there a change in target symptoms?: No Substance use target symptoms: misuse of (comment), use impacting daily functioning, use affecting medical status, withdrawal sx, legal consequences of use of substance and continued craving (Alcohol) Substance use initial goals: reduction in target symptoms, safe withdrawal from symptoms, reductionin cravings, avoidance of medications which could lead to abuse, referral to counseling and abstinence from substance Progress toward short-term goals/Response to Interventions: Willing to go to inpatient rehab. PROBLEM: Multiple medical problems Is there a change in target symptoms?: No Multiple medical problems target symptoms: Headache resolved however , today is confused w/ dysphasia and need to r/o stroke Multiple medical problems initial goals: increased stability of medical conditions, compliance withrecommended medications and cooperation w/ recommended medical lab testing/imaging/investigation Progress toward short-term goals/Response to Interventions: Headache resolved however developed confusion on 09/01 PROBLEM: Psychosocial problems Is there a change in target symptoms?: No Psychosocial problems symptoms: economic strain, employment problems, strained interpersonal relationships and losses Psychosocial problems initial goals: reduction of target symptoms, identifying supportive resources, strengthening of supports and implementation of new coping skills Progress toward short-term goals/Response to Interventions: Improved situation Short-term goals have been attained. LOCUS Risk of Harm: Current locus of harm: 3 Level of Patient Observation: Q 15 minutes (frequent) CHANGES IN TREATMENT PLANNING: CHANGES IN SUICIDE RISK FACTORS (LOCUS Risk of Harm and Level of Patient Observation): Comment on changes related to modifiable and protective risk factors: Less suicide risk give reduction in modifiable RF MEDICAL: ARE THERE CHANGES IN TREATMENT PLANNING?: No REASONS FOR CONTINUED INPATIENT TREATMENT: Need for adjustment and monitoring of medication dosage,Progress since admission not sufficient to ensure adequate psycho-social functioning outside of thehospital and New Problem NURSING: ARE THERE CHANGES IN TREATMENT PLANNING?: No PSYCHOLOGICAL: ARE THERE CHANGES IN TREATMENT PLANNING?: No SOCIAL: COLLABORATIVE EFFORTS: 1:1 supports and collaboration with treatment team. Following plan of care. DISCHARGE PLANS: As outlined in pt's plan of care. Treatment Team Members Resident MD: n/a RN: Laine Pichardo RN Therapist: Tl St, PhD Operating Room Coordinator:Chen Hickman PharmD: Attending physician statement/signature: Based on the information documented in this treatment plan update and in the medical record, I certify that: ??? Inpatient Psychiatric Hospital Services furnished since the previous certification or recertification were, and continue to be, medically necessary for either treatment which could reasonably be expected to improve the patient's condition or for diagnostic study. ??? As described in the medical record, the services furnished since the previous certification or recertification were, and continue to be, intensive treatment services, and or admission and relatedservices necessary for diagnostic study. ??? As documented in the medical record, this patient meets, on a daily basis, active treatment furnished directly by or requiring the supervision of inpatient psychiatric facility personnel. ??? Treatment is expected to improve this patient's condition. Sonali Mills MD Attending Psychiatrist * Plan of Care - Jocelin Wong RN - 09/01/2018 1805 EDT Problem: Daily Care Plan Goals Goal: Care Plan Documentation Outcome: Ongoing 09/01/18 1638 Care Plan Focus Area of Focus Safety Goal This Shift Patient will remain safe on the unit Data: Patient presents alert and oriented x3. Is able to make needs and wants known. Denies suicidal or homicidal ideations Denies a/v/o/t hallucinations. Blunted mood, restricted affect. Ate meal inroom. Continues with latent speech. To CT at 1636. MRI Has been scheduled also. Attended recovery group. Action: FREQUENTS, VOLUNTARY, LEVEL III. Patient offered emotional encouragement, shift assessment.Available for needs. Response: Patient accepting of emotional encouragement and cooperative with shift assessment. Jocelin Wong RN 09/01/2018 18:03 * Plan of Care - Jocelin Wong RN - 09/01/2018 1422 EDT Problem: Daily Care Plan Goals Goal: Care Plan Documentation Outcome: Ongoing 09/01/18 0900 Care Plan Focus Area of Focus Safety Goal This Shift Patient will remain safe on the unit Data: Patient presents alert and oriented x3. Able to make needs known. Patient ate breakfast in group room. Patient became more confused as morning progressed. Labs, urine sample obtained. Stool sample pending. Patient placed on constant observation r/t confusion. Patient later became clearer and taken off constants. Patient voiced anxiety regarding lab results. Action: ROUTINE, VOLUNTARY, LEVEL III. Patient offered emotional encouragement, medications, shift assessment. Available for needs. Response: Patient accepting of emotional encouragement and medications. Cooperative with shift assessment. Jocelin Wong RN 09/01/2018 14:16 * Plan of Care - Laine Pichardo RN - 09/01/2018 0355 EDT Problem: Daily Care Plan Goals Goal: Care Plan Documentation 09/01/18 0130 Care Plan Focus Area of Focus Sleep Goal This Shift sleeps 6-8 hours overnight [id number] Data: Routine, Voluntary, Level 3. Pt awake at start of shift. Spent time listening to videos on his phone while resting in bed and later using his laptop. Came to the team station for any needs. No reports of any pain/discomfort. Appeared asleep at 0130, slept briefly. Towards the end of the shift, pt observed watching TV in the activity room. Action: Monitor for safety. Checks as ordered. Promote sleep. Available for any needs throughout the shift. Response: Pt appeared to sleep 1 hour overnight. No needs expressed at this time. Has remained safeon the unit. Laine Pichardo RN 09/01/2018 3:51 * Plan of Care - Nato Perez RN - 08/31/2018 2214 EDT Problem: Daily Care Plan Goals Goal: Care Plan Documentation 08/31/181999 Care Plan Focus Area of Focus Safety Goal This Shift Will maintains safety Data: Pt is voluntary, NURYS 3, on routine observation. Pt denies SI/HI/AVH and pain. Affect is broad. The pt is alert and oriented, calm and cooperative. Appropriate with ppers this shift. The pt attended evening group and asked for his meds at 1999. Describes his mood as tired but clear headed. Pt went to bed after receiving his meds. Will continue to monitor. Action: Assessed for mood, affect, and pain. Monitored for safety. RN support available throughout shift. Medications administrated per order (see MAR). Response: Pt interacted appropriately with staff and peers. Visible in milieu. Able to make needs known. Behavior in control. No outstanding needs/concerns. * Plan of Care - Dhara Anne RN - 08/31/2018 1910 EDT Problem: Daily Care Plan Goals Goal: Care Plan Documentation Outcome: Met This Shift 08/31/18 1545 Care Plan Focus Area of Focus Psychosocial Goal This Shift Pt will be appropriate w/peers in milieu Assumed Care [id number] Data: Pt was in his room w/medical student at beginning of shift. Pt was presents at outgoing, slightly obnoxious w/peers, boisterous (sometimes on a superficial level) but appropriate w/peers this shift. Action: Provided medication (see MAR), Offered therapeutic communication, encouragement & support. Assessed for mood and depression symptoms. Encouraged independence, groups & socializing in milieu. Assessed pain/SI/HI/AH Response: Pt ate dinner in the milieu & s[ent most of his time in the milieu this shift. Pt attended art group & even invited other peers to join. Pt denies pain/HI/SI/AH & denies furtherneeds at this time. * Plan of Care - Demond Jimenez - 08/31/2018 1437 EDT Problem: Daily Care Plan Goals Goal: Care Plan Documentation Outcome: Met This Shift 08/31/18 1138 Care Plan Focus Area of Focus Safety Goal This Shift Patient will remain safe this shift Data: Pt has been active and social in the milieu, acting as welcoming committee for new patients. Denies pain or discomfort. States feeling good, a 9 out of 10. Pt has positive affect. Pt enjoysa lot of coffee. Action: Encouraged participation in group activities. Monitored for safety. Administered prescribedmedication. Offered supportive interactions. Encouraged continued work on CBT worksheets. Response: Pt actively worked on list of tasks around dealing with turning in his car and preparing for his call with outpatient clinic. Pt appears hopeful and is actively making plans for the future.Pt states feeling safe. Demond Barbara 08/31/2018 14:15 * Plan of Care - Debi Benson RN - 08/30/2018 2349 EDT Problem: Daily Care Plan Goals Goal: Care Plan Documentation Outcome: Ongoing 08/30/18 2330 Care Plan Focus Area of Focus Safety Goal This Shift pt will remain safe DATA: Alonzo appeared asleep(snoring) in bed at start of shift. No sign of distress observed or reported. No complaint of pain or discomfort. Spent time in the activity room watching television and being social with peer. States very appreciative of care. ACTION: Routine observation continued as ordered for safety. Monitor safety and sleep. Promote sleep. Available for needs. RESPONSE: Alonzo remains safe. As of 0600 Alonzo is documented to have appeared to sleep ~3.5 hours this shift. 24 hour sleep total=~3.5 hours. * Plan of Care - Wilfredo Bowles RN - 08/30/2018 2304 EDT Problem: Daily Care Plan Goals Goal: Care Plan Documentation Outcome: Met This Shift Data: pt has been social with peers and staff this evening. He is slightly intrusive when he calls across the room to speak with staff. Pt continues to report his sleep patterns are fairly normal forhim. He reports only ever sleeping 3 hours at a time. We discussed research supporting the importance of 7-9 hours of sleep a night and encouraged him to try something different and he may like the way he feels. He had this discussion in the milieu with peers and he listened to their input encouraging increased sleep but continued to denied the need for him or the desire to try any treatment for assistance. Action: Monitor for safety, administer prescribed medication, encourage group participation, offer supportive interactions Response: pt has been social with peers and spent much time in the milieu. Groups were cancelled tonight and the patients ran their own evening check in group. No attempts to harm self or others noted. Pt denies need for improved sleep hygiene. He did not nap this evening. Wilfredo Bowles RN 08/30/2018 22:44 * Plan of Care - Jennifer Mustafa RN - 08/30/2018 1420 EDT Problem: Daily Care Plan Goals Goal: Care Plan Documentation 08/30/18 0915 Care Plan Focus Area of Focus Safety Goal This Shift patient will remain safe on unit Data: Patient out in the milieu at start of shift. Reports his mood is good and rates it a 9/10. Not concerned about his sleep, states that he has only been sleeping about 3 hours per night for the past several years and has had no problem with this. Not interested in trying melatonin or Atarax again and would like his current med list simplified as much as possible, doesn???t want to be taking anything he doesn???t need. Asked appropriate questions about his medications. [place] that the frequency of checks has been disruptive to his sleep. Changed to routine observation. Elevated BP this morning 195/86, decreased to 132/63 after BP medication. Has been out in the milieu for much of the shift, social with peers. Went to groups. No reports or observation of inappropriate or intrusive behavior this shift. Action: Assessed for SI/HI/pain.1:1 supportive listening. Monitored for safety. Administered medications. Response: Denies SI/HI. No complaints of pain or discomfort. Med compliant. Remains safe on unit. Jennifer Mustafa RN 08/30/2018 14:20 * Plan of Care - Debi Benson RN - 08/30/2018 0113 EDT Problem: Daily Care Plan Goals Goal: Care Plan Documentation Outcome: Ongoing 08/29/18 2330 Care Plan Focus Area of Focus Safety Goal This Shift pt will remain safe DATA: Alonzo appeared asleep(snoring) in bed at start of shift. No sign of distress observed or reported. No complaint of pain or discomfort. Requested to speak to telegraphic typewriter operator at ~0045-during 1:1 Alonzo reported that he got some bad news today and he states his supervisor publications production told him he will most likely be going to residential for at least 30 days d/t his 2 DUI's in a 6 month time frame. 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 Furture oriented-spoke about hoping to meet people he can connect with at AA meetings. Alonzo stated he is surrendering his car today d/t inability to pay for costs associated with it(insurance etc).. 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 Continues to have difficulty with sleep-spends most of the night awake listening to audio books and watching televison. ACTION: Frequent observation continued as ordered for safety. Monitor safety and sleep. Promote sleep. Available for needs. RESPONSE: Alonzo remains safe. As of 06 Alonzo is documented to have appeared to sleep ~1.5 hours this shift. 24 hour sleep total=~2.75 hours. * Daily Progress Note - Toni Galindo RN - 08/29/20182229 EDT Shift 1900 - 2330 Pt in activity room at shift start. He was there socializing with 4 other pts. His mood is good through this time. Napped for about an hour then was up with another pt walking in they [place]. Making jokes with staff. Asked to use exercise room and did ride a bike there for about 15 min's talking continuously, mostly of his employment history. Some difficulty with words, trailing off and mumbling but all content understandable. Mood pleasant. * Plan of Care - Chuyita Miller RN - 08/29/2018 1942 EDT Problem: Daily Care Plan Goals Goal: Care Plan Documentation 08/29/18 1800 Care Plan Focus Area of Focus Safety Goal This Shift pt will remain on unit Data: assumed care of pt 1500-19. Pt is attending groups during this time. He is happy and pleasant. He is pleased the male peer he has been fighting with was transferred. He is out to milieu for dinner and then social with peers. He denies pain or distress this shift. Action: monitor Response: stable Chuyita Miller RN 08/29/2018 19:40 * Plan of Care - Jennifer Quiles - 08/29/2018 1327 EDT Problem: Daily Care Plan Goals Goal: Care Plan Documentation Data: Pt wanted to discuss current milieu situation with this RN. Spent 30 minutes 1:1 with patientsupportive counseling, problem solving, goal-setting. Patient is able to joke and is future-oriented. Later he spent time in milieu and at groups. Ate 100% of meals. No complaints of pain. Denies SI/HI. 2 BMs today. Action: Supportive counseling, meds as ordered with 1 lactulose administered this morning, monitored for safety. Nursing interventions per treatment team plan. Response: Pt mostly out in the milieu today. Behavior in control. Engaging appropriately with this telegraphic typewriter operator and with peers. JENNIFER QUILES RN 08/29/2018 13:22 * Plan of Care - Debi Benson RN - 08/28/2018 2342 EDT Problem: Daily Care Plan Goals Goal: Care Plan Documentation Outcome: Ongoing 08/28/18 2330 Care Plan Focus Area of Focus Safety Goal This Shift pt will remain safe DATA: Alonzo appeared asleep(snoring) in bed at start of shift. No sign of distress observed or reported. No complaint of pain or discomfort. Declined 0000 scheduled Lactulose-states he thought the dosing frequency was going to be changed. Spoke to telegraphic typewriter operator regarding his conflict with another patient on the unit-states he may talk to MD in am regarding leaving d/t the other patient making me so angry that I can't even go to groups. Alonzo came up to the team station at ~0220 and stated I'm ready for my Lactulose now-MD aware, nursing communication was received ok to give at that time. Alonzo reports continued difficulty with staying asleep. ACTION: Frequent observation continued as ordered for safety. Monitor safety and sleep. Promote sleep. Available for needs. RESPONSE: Alonzo remains safe. As of 0600 Alonzo is documented to have appeared to sleep ~1.75 hours this shift. 24 hour sleep total=~3.25 hours. * Plan of Care - Chuyita Miller RN - 08/28/2018 2222 EDT Problem: Daily Care Plan Goals Goal: Care Plan Documentation 08/28/18 0757 Care Plan Focus Area of Focus Psychosocial Goal This Shift patient will attend a group Data: Pt was in group at change of shift but he abruptly left when pt that he is angry with was present. Pt is focused this shift on male peer he is angry with. He states later in shift that he wantsto discharge tomorrow I can't get counseling here. Discussed with pt of the high likelihood if hedischarged tomorrow he would go home and drink. We discussed the positives about pt staying on unitand he does state he likes it here and he has new friends. Pt was encouraged to stay and see if other situation sorts out over the next couple of days. Pt denies pain this shift. He is compliant withmedications. He received melatonin prn at hs. Pt denies SI. Action: monitor for safety on unit, medications per order, supportive interaction Response: stable on unit Chuyita Miller RN 08/28/2018 22:16 * Plan of Care - Lilly Rogers RN - 08/28/2018 1147 EDT Problem: Daily Care Plan Goals Goal: Care Plan Documentation Outcome: Met This Shift 08/28/18 0757 Care Plan Focus Area of Focus Psychosocial Goal This Shift patient will attend a group DATA: Patient awake out in the [place] at the start of the shift. Patient stated he was still upset with being woken up last night for his melatonin and tylenol. Patient stated tonight he would let the nurse know when he's ready to go to bed and would ask for the melatonin at that point. ACTION: Assessed for signs and symptoms of pain, SI/HI/SH. Patient monitored for safety. Observations as ordered. Medications administered as ordered. Offered one to one supportive interaction. Assessed for mood with depression symptoms. Encouraged group participation and milieu interaction. Available for additional needs throughout shift. RESPONSE: Patient compliant with medications. Patient attending pet therapy group this morning. Patient out in the milieu social with peers. Patient napping this afternoon in his room. Behavior in control. Patient has remained safe on the unit. Lilly Rogers RN 08/28/2018 1435 * Plan of Care - Debi Benson RN - 08/28/2018 0014 EDT Problem: Daily Care Plan Goals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 patient to utilize positive coping techniques. Continue to assess mood, affect, pain. Offer 1:1 support as needed. Response: comfortably napping on and off while IV infusing normal saline at 200 cc/hr to receive 1 liter in total. Joanne Macedo RN 08/16/2018 22:55 * Plan of Care - Howie Marques RN - 08/16/2018 1413 EDT Problem: Daily Care Plan Goals Goal: Care Plan Documentation Outcome: Ongoing 08/16/18 0807 Care Plan Focus Area of Focus Pain/ Comfort Goal This Shift Patient will report adequate pain relief Data: Locus of harm level 3. Reported his mood as anxious. Patient stated I totally screwed up my life. Reported poor sleep and requested to sleep. Restricted affect. Appeared indifferent at times. Reported 4/10 headache and completed a bolus of NS. Denied SI/SH. Slept intermittently. Action: Monitor for safety. Frequent observation. One to one offered. Groups encouraged. Response: Patient remains safe. Slept 4 hours intermittently. Declined lunch. Rated his headache as5/10. Declined intervention. Howie Marques RN 08/16/2018 14:10 * Plan of Care - Sienna Ham RN - 08/16/2018 0633 EDT Problem: Daily Care Plan Goals Goal: Care Plan Documentation Outcome: Not Met This Shift 08/16/18 0000 Care Plan Focus Area of Focus Sleep Goal This Shift patient will stay asleepf for at least 6hrs this shift Data: Patient presented with insomnia terminal related to headache. He slept for 5 hrs this shift and complaining of 8/10 headache unrelieved by TylMD bayron was notified and order for acute abortive migraine therapy obtained. Process explain to patient and and he verbalizes understanding. Action: Monitor for safety and promote sleep. Assess for pain, administer medication and assisted with need. Response: Patient remain safe. No acute distress, awaiting for IV placement by the IV nurse at thistime. Will continue to monitor. Sienna Ham RN 08/16/2018 6:11 * Plan of Care - Pillo Kramer RN - 08/15/2018 1454 EDT Problem: Daily Care Plan Goals Goal: Care Plan Documentation Outcome: Met This Shift 08/15/18 1026 Care Plan Focus Area of Focus Safety Goal This Shift pt will remain safe on unit Data: Pt asleep at start of shift. Calm and cooperative on interaction. He remains able to contractfor safety on the unit. Continues to endorse an unrelenting headache, provider Gene aware. Showered, shaved with supervision. Stated he felt better afterward. He remained isolative to his room formost of the shift, watching movies on his phone. Compliant with medications and care. Utilized PRN Atarax X2 and PRN tylenol X1 with moderate effect. He denies further needs at this time. Action: Monitor for safety, administer medication per MAR, encourage ADLs, available for needs Response: Pt remains safe on unit Pillo Kramer RN 08/15/2018 14:52 * Psych Treatment Team - Sonali Kaufman RN - 08/15/2018 0909 EDT Psychiatry Multidisciplinary Treatment Plan - Update Date: 08/15/2018 Time: 9:44 Estimated Discharge Date: 09/11/18 IS THERE A CHANGE IN LEGAL STATUS?: No IS THERE A CHANGE IN DIAGNOSIS?: No Psychiatric Diagnosis: Major Depression, severe, recurrent, Alcohol Use Disorder Note Type: Update ARE THERE NEW PROBLEMS?: No PROBLEM LIST: PROBLEM: Depression Is there a change in target symptoms?: No Depression target symptoms: low mood, sleep alteration, diminished interest/pleasure, social isolation, decreased appetite, guilt/worthlessness, reduced energy, reduced concentration, indecisiveness,SI, hopelessness and helplessness Depression initial goals: reduction in target symptoms, tolerance of medication and engagement in psychotherapy sessions Progress toward short-term goals/Response to Interventions: Continues w/ low mood, social isolation, anhedonia, guilt, low energy and SI PROBLEM: SI/Self injury Is there a change in target symptoms?: No Self injury target symptoms: feelings of worthlessness, hopelessness, helplessness, suicidal thoughts, suicidal plan, status-post suicide attempt and limited coping skills Self injury initial goals: reduction in target symptoms, decreased SI/self-harm and improved copingskills Progress toward short-term goals/Response to Interventions: No active SI in the hospital, but no reduction of modifiable RF and pt expresses certainty he would attempt if outside of the hospital PROBLEM: Substance use Is there a change in target symptoms?: No Substance use target symptoms: misuse of (comment), use impacting daily functioning, use affecting medical status, withdrawal sx, legal consequences of use of substance and continued craving (Alcohol) Substance use initial goals: reduction in target symptoms, safe withdrawal from symptoms, reductionin cravings, avoidance of medications which could lead to abuse, referral to counseling and abstinence from substance Progress toward short-term goals/Response to Interventions: Remains highly likely to relapse post-d/c. Little motivation. Has insight but has helplessness. PROBLEM: Multiple medical problems Is there a change in target symptoms?: No Multiple medical problems target symptoms: Cirrhosis, Hep C, encephalitis Multiple medical problems initial goals: increased stability of medical conditions, compliance withrecommended medications and cooperation w/ recommended medical lab testing/imaging/investigation Progress toward short-term goals/Response to Interventions: Stable currently. Taking lactulose 1x/donly, but cognition fairly intact w/ NH3 level of 61 PROBLEM: Psychosocial problems Is there a change in target symptoms?: No Psychosocial problems symptoms: economic strain, employment problems, strained interpersonal relationships and losses Psychosocial problems initial goals: reduction of target symptoms, identifying supportive resources, strengthening of supports and implementation of new coping skills Progress toward short-term goals/Response to Interventions: Multiple recent losses. No change. Needs to investigate the severity of these losses now. PROBLEM: Disposition challenges Is there a change in target symptoms?: No Disposition challenges target symptoms: lack of outpatient psychiatric follow up and delay in legalprocess Disposition challenges initial goals: reduction of target symptoms, establishment of timely outpatient psychiatric follow up and facilitation of timely legal proceedings Progress toward short-term goals/Response to Interventions: Unclear where pt will live post-d/c andwhether he will be going to residential LOCUS Risk of Harm: Current locus of harm: 3 Level of Patient Observation: Q 15 minutes (frequent) CHANGES IN TREATMENT PLANNING: CHANGES IN SUICIDE RISK FACTORS (LOCUS Risk of Harm and Level of Patient Observation): Comment on changes related to modifiable and protective risk factors: High modifiable RF: high risk of relapse to alcohol misuse, low mood, hopelessness/helplessness, MEDICAL: ARE THERE CHANGES IN TREATMENT PLANNING?: No Changes in Medications. Added Celexa and are titrating the dose REASONS FOR CONTINUED INPATIENT TREATMENT: Inability to plan for safety and Progress since admission not sufficient to ensure adequate psycho-social functioning outside of the hospital NURSING: ARE THERE CHANGES IN TREATMENT PLANNING?: No PSYCHOLOGICAL: ARE THERE CHANGES IN TREATMENT PLANNING?: No SOCIAL: COLLABORATIVE EFFORTS: SW collaborated with medical team DISCHARGE PLANS: SW assisted in contacting [employer] to help Alonzo locate his vehicle, contacted Landlord and employer to confirm hospitalization, will continue to assess for discharge needs as patient recovers plan is to recommend residential substance abuse treatement. Treatment Team Members Resident MD: n/a RN: Debi Benson RN Therapist: MEGHAN SWARTZ MS Operating Room Coordinator:CISCO Guillen PharmD: Attending physician statement/signature: Based on the information documented in this treatment plan update and in the medical record, I certify that: ??? Inpatient Psychiatric Hospital Services furnished since the previous certification or recertification were, and continue to be, medically necessary for either treatment which could reasonably be expected to improve the patient's condition or for diagnostic study. ??? As described in the medical record, the services furnished since the previous certification or recertification were, and continue to be, intensive treatment services, and or admission and relatedservices necessary for diagnostic study. ??? As documented in the medical record, this patient meets, on a daily basis, active treatment furnished directly by or requiring the supervision of inpatient psychiatric facility personnel. ??? Treatment is expected to improve this patient's condition. Sonali Mills MD Attending Psychiatrist * Plan of Care - Short, Sharon A, RN - 08/15/2018 0042 EDT Problem: Daily Care Plan Goals Goal: Care Plan Documentation Outcome:Not Met This Shift 08/15/18 0041 Care Plan Focus Area of Focus Sleep Goal This Shift sleeps 6-8 hours. Data: See observation record. Action: Continued on every 15 minute observations through the night. Monitor vital signs.Monitor for mood, behavior, safety, pain, sleep. Response: Appeared to sleep comfortably until awake at 0100 with complaint of headache # 7; received tylenol 500 mg po at 0119. Watching videos on his phone. Pleasant and polite on interaction. Returned to sleep at 0245. Total sleep of 4.5 hours. * Plan of Care - Rabia Rodgers RN - 08/14/2018 2138 EDT Problem: Daily Care Plan Goals Goal: Care Plan Documentation 08/14/18 1530 Care Plan Focus Area of Focus Communication Goal This Shift patietn will comunicate nurse Data: Patient stayed isolative in his room this evening, listening to his phone and reading. Mood depressed, he rates his anxiety as 8/10 because of multiple stressors: losing his license r/t second DUI and work being 25 miles away from his house and lacking any support or friends, I have no life. Patient denies SI while in the hospital. He cannot commit to safety outside of the hospital. Denies HI/AVH. Patient endorses 8/10 head and neck pain with little relief from Tylonol. Declined ice pack. Declined Lactulose. He ate 80 percent of his tray and was accepting of fluids when offered. Declined groups and garden. Declined shower, I'll get there tomorrow. Needs encouragement with ADLs andnutrition. PRN atarax x 2. Action: Assessed SI/HI/pain, A/V hallucinations, provided 1:1 support, encouraged groups and participation in the milieu, provided assistance with ADLs. Coordinated care with treatment team, administered medications as ordered and monitored for mood, behavior and safety. Response: Patient was able to maintain safety on the unit. * Plan of Care - Seema Domingo RN - 08/14/2018 1434 EDT Problem: Daily Care Plan Goals Goal: Care Plan Documentation Outcome: Not Met This Shift 08/14/18 Psychosocial - participation Data: during AM assessment, pt barks out before this RN asks, that he will not be attending any groups, so don't even ask. pt reporting high level of anxiety this AM, 10/18 and that atarax does nothing for it. Pt stated that he just wanted to be left alone, and have staff stop bothering/interruptinghim . Action: Administered atarax as per JUN; encouraged pt to walk in halls as an approach to decreasing his anxiety. Response: pt declined to walk in halls to help alleviate anxiety; pt did not attend any groups thusfar today. Seema Domingo RN 08/14/2018 14:28 * Plan of Care - Venkata Htuchinson RN - 08/14/2018 0735 EDT Problem: Daily Care Plan Goals Goal: Care Plan Documentation Outcome: Ongoing 08/14/18 0600 Care Plan Focus Goal This Shift Patient will sleep 6-8 hours during shift Data: Assumed care at 2330. Patient slept intermittently during shift, was given PRN atarax for anxiety and Tylenol 500 for SANFORD 09/18. Patient remained isolative to room, able to make needs known. Action: Frequent observation maintained Response: Patient appears to be resting comfortably in room, slept for 5 hours during shift VENKATA HUTCHINSON RN 08/14/2018 7:34 * Plan of Care - Mena Pringle RN - 08/13/2018 2228 EDT Problem: Daily Care Plan Goals Goal: Care Plan Documentation Outcome: Met This Shift Data: Patient isolated in his room in bed all shift. Continues to have headache pain 08/18. Did not attend the afternoon communication skills group. Listened to pod casts on his phone and spent time reading in bed. Napped off and on all evening. Ate his meal in his room and only ate about 50%. Reports poor appetite. Requested and received PRN Tylenol and Atarax at 1945. Declined to go to the garden. Declined to go to the open art group. Headache was only slightly better after Tylenol. Is no longer on CIWA. Is on frequent observations. Action: Assessed for SI/HI and self harm. Provided 1:1. Encouraged groups and spending time out of room. Monitored for pain and anxiety. Provided PRN medication as needed. Maintained on frequents forsafety. Response: Patient continues to endorse SI but states he can be safe here. Denies HI and self harm thoughts. Mood is depressed/blunted, affect restricted. Slightly less irritable today but continues to be difficult to engage and very hopeless. Patient requested to just be left alone and declined groups and all other suggestions to walk, shower, go to the garden, etc. Is hoping that he can get a medication change to help with his depression tomorrow. Continues to decline lactulose and states thathe is already having multiple BMs a day. Requests to take PRN Atarax as often as he can have it, although does not appear overly anxious. Took HS medication as scheduled. Currently awake reading in be d. Will continue to monitor. Mena Pringle RN 08/13/2018 22:12 * Plan of Care - Janie Urban RN - 08/13/2018 9447 EDT Problem: Daily Care Plan Goals Goal: Care Plan Documentation Outcome: Ongoing 08/13/18 0806 Care Plan Focus Area of Focus Pain/ Comfort Goal This Shift Pt will report relief from headache Data: Pt reports anxiety 7/10 and headache 6/10 this morning. Pt restricted, flat, isolative to room. Pt noted with HR of 49, nadolol and cozaar due with morning meds. Action: Administered tylenol and atarax for SANFORD and anxiety. Emotional support provided. Encouraged groups. Notified Duran LESTER of HR of 49. Per Duran give nadolol and hold cozaar. This was done. Remeasure VSper . CIWA measured and pt not scoring over 10, has not scored >10 for over 24 hours, MD notified. Response: Pt reports SANFORD 5/10, states improved for a little bit but increasing again this afternoon,tylenol given again around noon. Pt reports anxiety continues, unrelieved by another dose of [id number] at noon. Duran LESTER notified and ordered increased dose to 50mg, states okay to give another 25mg now, done. VS remeasured, stable, HR 49 but this is where he runs per flowsheet. CIWA d/c'd by . Ptdid not attend groups, remains isolative to room with flat affect. Janie Urban RN 08/13/2018 14:22 * Plan of Care - Sharon Flores RN - 08/13/2018 0141 EDT Problem: Daily Care Plan Goals Goal: Care Plan Documentation Outcome: Met This Shift 08/13/18 0134 Care Plan Focus Area of Focus Sleep Goal This Shift sleeps 6-8 hours. Data: See observation record. Action: Continued on every 15 minute observations through the night. Monitor vital signs.Monitor for mood, behavior, safety, pain, sleep. Continues on CIWA every 4 hours while awake; CIWA at 0251= 8. Response: Appeared to sleep comfortably until 0251 when he complained of a headache # 8 and requested tylenol 650 mg po and atarax 25 mg po which he received at this time. He returned to sleep at 0315. Total sleep of 6 hours. * Plan of Care - Mena Pringle RN - 08/12/2018 1981 EDT Problem: Daily Care Plan Goals Goal: Care Plan Documentation Outcome: Met This Shift 08/12/18 1629 Care Plan Focus Area of Focus Safety Goal This Shift will remain safe on the unit Data: Patient sitting up in his recliner reading at the change of shift. Continued to have headacheand requested and received PRN Tylenol and Atarax for anxiety at 1630. Did not attend the afternoongroup. Isolated in his room all shift. Napped on and off. Tylenol only brings pain down to 7/10. Ate his meal in his room. Ate 100% of his meal. Returned to bed after eating. Is on CIWA scoring q 4 hours and scored 6 both times this shift for headache, anxiety and some sweating. No tremor noted. Spent time reading in bed and listening to pod casts on his phone. Did not attend the evening leisure group. Is on frequent observations. Action: Assessed for SI/HI and self harm. Provided 1:1. Encouraged groups and spending time out of room. Monitored for pain and anxiety. Provided PRN medications as needed. Maintained on frequents for safety. Response: Patient continues to endorse SI but states he will be safe here in the hospital. Mood is depressed/blunted, affect restricted. Remains focused on headache pain and is not getting much relief from PRN Tylenol. Is irritable at times and later apologetic. Sleeping and isolating in his room off and on all shift. Declined to attend any groups this shift. Difficult to engage on 1:1. Remains very negative, hopeless and helpless. Took all medication as scheduled. Requested additional PRN Atarax and Tylenol with HS medication. Currently awake in bed. Will continue to monitor. Mena Pringle RN 08/12/2018 22:25 * Plan of Care - Chuyita Miller RN - 08/12/2018 1449 EDT Problem: Daily Care Plan Goals Goal: Care Plan Documentation 08/12/18 0906 Care Plan Focus Area of Focus Safety Goal This Shift pt will remain safe on unit Data: Pt is sleeping at start of shift. He is up at 0900. CIWA completed, pt scored 9. No medications given at this time for w/d sx. When asked if he is still feeling suicidal pt states, i'm not ansering that question anymore. When asked if he has intent on the unit, pt states, I would not do that to the staff here. Pt has c/o throbbing anterior h/a. Tylenol 650mg given at 0923 for 8/10 h/a. Pt's headache continued to get worse. Dr Hernandez in to see pt. 800mg ibuprofen ordered and given at 1121. Pt asked, If this doesn't help my headache can I go home? Pt fell asleep after receiving ibuprofen. He declined breakfast and lunch stating he has no appetite. After waking he showered indep endently. CIWA completed at 1400 because pt was asleep when due at 1300. CIWA at 1400 is 2. After shower pt states his h/a is better but he will not rate his level of pain. Lactulose encouraged but pt declined. No confusion or disorientation observed this shift. Action: monitored and assessed for pain, medications per order, encouraged po intake, encouraged lactulose prn Response: Pt remains safe on unit. Pt appears to be comfortable at this time at end of shift sitting in recliner near his window. Chuyita Miller RN 08/12/2018 14:39 * Plan of Care - Sharon Flores RN - 08/12/2018 0535 EDT Problem: Daily Care Plan Goals Goal: Care Plan Documentation Outcome: Met This Shift 08/12/18 0055 Care Plan Focus Area of Focus Sleep Goal This Shift sleeps 6-8 hours. Data: See observation record. Action: Continued on every 15 minute observations through the night. Monitor vital signs.Monitor for mood, behavior, safety, pain, sleep. CIWA every 4 hours while awake. Response: Appeared to sleep comfortably x 7 hours. * Plan of Care - Mena Pringle RN - 08/11/2018 2240 EDT Problem: Daily Care Plan Goals Goal: Care Plan Documentation Outcome: Met This Shift 08/11/18 1700 Care Plan Focus Area of Focus Safety Goal This Shift will remain safe on the unit Data: Patient was sleeping at the change of shift. Slept until 1700. Remains on CIWA Q 4 hours while awake. Reported headache pain 9/10 and requested and received PRN Tylenol. Also reported high anxiety and requested and received PRN Atarax at 1820. Took 1 dose of PRN Lactulose and did have 1 soft BM. Declined to take additional dose of Lactulose at HS. Went to part of the recovery group. Left group early and was tearful in his room reporting he had a terrible headache. Was too soon to repeatTylenol at that time. Was given ice pack and encouraged to drink more water. Is on routine observations. Action: Assessed for SI/HI and self harm. Provided 1:1. Encouraged groups and spending time out of room. Monitored for pain and anxiety. Provided PRN medications as needed. Maintained on frequents for safety. Response: Patient endorses SI. States he will be safe here in the hospital but that if he is discharged he will kill himself. Mood is depressed, restricted affect. Is hopeless and helpless. Isolatingin his room in bed, sleeping for much of the shift. Repots feeling very tired. Poor eye contact andpoor hygiene. Only left his room today to attend part of the recovery group. Continues to report severe headache pain even after taking PRN Tylenol. Resident notified of continued headache and ordered PRN Ibuprofen which patient had at 2230. Currently in bed attempting to sleep. Will continue to monitor. Mena Pringle RN 08/11/2018 22:33 * Psych Treatment Team - Declan Gerardo RN - 08/11/2018 1512 EDT Psychiatry Multidisciplinary Treatment Plan - Initial Date: 08/11/2018 Time: 15:12 Date of Admission: 08/09/2018 Legal Status: Voluntary Estimated LOS: 14 days Infection Control Issue: No DIAGNOSIS: Principal Dx: F33.2 MDD severe without psychotic features. [facility] Guideline: 11 days Principal Dx: F10.20 Alcohol Use Disorder Problem List: Active Hospital Problems *Suicidal ideation Depression Substance abuse ([facility]) Patient's Weaknesses: Substance use, Limited supports, Medical comorbidity and Vulnerability to psychological stress BASELINE LEVEL OF PSYCHOSOCIAL FUNCTIONING: Working prior to admission Note Type: Initial PROBLEM LIST: PROBLEM: Depression Depression target symptoms: low mood, sleep alteration, diminished interest/pleasure, social isolation, decreased appetite, guilt/worthlessness, reduced energy, reduced concentration, indecisiveness,SI, hopelessness and helplessness Depression initial goals: reduction in target symptoms, tolerance of medication and engagement in psychotherapy sessions PROBLEM: SI/Self injury Self injury target symptoms: feelings of worthlessness, hopelessness, helplessness, suicidal thoughts, suicidal plan, status-post suicide attempt and limited coping skills Self injury initial goals: reduction in target symptoms, decreased SI/self-harm and improved copingskills PROBLEM: Substance use Substance use target symptoms: misuse of (comment), use impacting daily functioning, use affecting medical status, withdrawal sx, legal consequences of use of substance and continued craving (Alcohol) Substance use initial goals: reduction in target symptoms, safe withdrawal from symptoms, reductionin cravings, avoidance of medications which could lead to abuse, referral to counseling and abstinence from substance PROBLEM: Multiple medical problems Multiple medical problems target symptoms: Cirrhosis, Hep C, encephalitis Multiple medical problems initial goals: increased stability of medical conditions, compliance withrecommended medications and cooperation w/ recommended medical lab testing/imaging/investigation PROBLEM: Psychosocial problems Psychosocial problems symptoms: economic strain, employment problems, strained interpersonal relationships and losses Psychosocial problems initial goals: reduction of target symptoms, identifying supportive resources, strengthening of supports and implementation of new coping skills PROBLEM: Disposition challenges Disposition challenges target symptoms: lack of outpatient psychiatric follow up and delay in legalprocess Disposition challenges initial goals: reduction of target symptoms, establishment of timely outpatient psychiatric follow up and facilitation of timely legal proceedings TREATMENT PLAN: MEDICAL INTERVENTIONS: Psychiatric Evaluation, Physical Evaluation, Labratory Work-up, Daily contact with patient for Evaluation and Management, Daily meeting with multidisciplinary team to review patient's progress and Pharmacological Management MEDICAL EXPECTED OUTCOMES AT TIME OF DISCHARGE: Diagnostic clarification, No suicidal ideation, Reduction of target symptoms, enough to safely transition to a less restrictive level of care., Stabilization of acute medical problems, enough to safely transition to a less intensive level of care., Adequate initial clinical response to pharmacological treatment and Insight gained on patterns of maladaptive behavior NURSING INTERVENTIONS: Behavioral/health assessment, daily, Pain assessment/management, daily, Assess need for observations, Monitoring of sleep/activity daily, Administer medications as per physicians order, Monitoring side-effects from medications daily, Education (See patient teaching record), Promotion of independence upon every interaction, Supportive counseling daily, Stimulate participation in groups, Ensure safety in the environment of care throughout the 24 hr period and Provision of structure and orientation in the environment of care upon every contact NURSING EXPECTED OUTCOMES AT TIME OF DISCHARGE: Patient interacts with others in socially appropriate manner, Patient refrains from verbal aggression, Patietn refrains from physical aggression, Patient refrains from self-harm behavior, Patient reports reduction in suicidal ideation, Patient attendsgroup therapy sessions, Patient engages in discharge planning, Patient out of room, engaged with others during daytime hours, Patient performs ADLs independently, Patient reports adequate understanding of medication regimen, Patient adheres to pharmacotherapy as ordered, Patient reports adequate relief of pain, Patient remains in bed during normal sleep hours and Patient eats and drinks sufficient quantities PSYCHOLOGICAL INTERVENTIONS: PROCESS GROUPS: Art therapy, up to 1 hour 2 times per week, Cognitive group therapy, up to 1 hour 2times per week and Group therapy, up to 1 hour 2 times per week EDUCATION GROUP: Up to 1 hour 10 times per week TASKS GROUPS: Up to 1 hour 12 times per week PSYCHOLOGICAL EXPECTED OUTCOMES AT TIME OF DISCHARGE: Accepted responsibility for maladaptive behavior, Developed coping strategies/skills, Identified stressors, Identified feelings, Improved self-esteem, Increased emotional expression, Increased attention span, Increased awareness of self in relation to others, Increased expression of needs, Increased motivation, Increased relaxation, Increased tolerance for socialization, Increased knowledge about own illness and Increased self-control SOCIAL INTERVENTIONS: Community referral, Collaboration with outpatient providers, Discharge planning and Collaboration with family/support network if allowed by patient SOCIAL EXPECTED OUTCOMES AT TIME OF DISCHARGE: Outpatient referrals/follow-up appointments in place, Coordination of transportation from hospital to home is ensured, Support network identified and Plan of aftercare communicated to providers and other support network PCP:Laurie Wiggins Treatment Team Members Resident MD: n/a RN: Debi Benson RN Therapist: EUGENIO Oneil Operating Room Coordinator: CISCO Guillen PharmD: Patient Involvement This Treatment Plan was discussed with the patient/guardian. Attending physician statement/signature: Based on the information documented in this Initial Multidisciplinary Treatment Plan and in the medical record, I certify that: ?? This patient meets medical necessity criteria and requires acute inpatient psychiatric treatment, as evidenced by the documentation in this document of the diagnosis, active problems, target symptoms, initial goals, suggested diagnostic studies, interventions and expected outcomes at the time ofdischarge. ?? I hereby certify having a reasonable expectation that this patient has acute medical/psychiatricneeds which will require that he or she receives inpatient services for no less than two midnights. ?? This patient needs, on a daily basis, active treatment furnished directly by or requiring the supervision of inpatient psychiatric facility personnel. Treatment is expected to improve this patient's condition. Sonali Mills MD Attending Psychiatrist * Plan of Care - Chantal Chavira RN - 08/11/2018 1340 EDT Problem: Daily Care Plan Goals Goal: Care Plan Documentation Outcome: Met This Shift 08/11/18 0830 Care Plan Focus Area of Focus Safety Goal This Shift Pt. will remain safe Data: Patient has been in bed most of the shift except to get up to the bathroom. Continues to endorse S.I. though says he is safe in the hospital. Has been very adamant in stating he will kill himself after discharge and voices hopeless and worthless statements about himself and his situation. Team aware. Denied H.I. C/o h/a -10/18. Had x1 dose of Tylenol 1000 mgs at 0926. Refused breakfast and lunch. Drinking water and gingerale with encouragement. Patient c/o feeling tired and has rested/slept all shift. Tearful on 1-1. CIWA every 4 hours-scored 4 and 5.Had prn atarax 25 mgs at 1407. Action: Patient initially on constant observations for patient safety-this was changed to frequent observations at 0945. Assessed S.I./S.H./H.I. Assessed pain/vs. Encouraged groups. Supportive interactions.1-1. Response: Patient has remained safe on the unit. Chantal Chavira RN 08/11/2018 * Plan of Care - Debi Benson RN - 08/11/2018 0026 EDT Problem: Daily Care Plan Goals Goal: Care Plan Documentation Outcome: Ongoing 08/10/18 2330 Care Plan Focus Area of Focus Safety Goal This Shift pt will remain safe DATA: Alonzo appeared asleep(snoring) in bed at start of shift. No sign of distress observed or reported. Ciwa score at ~0015=0-b/p 102/46 with pulse 71(page sent to update MD)-difficult to awake fromsleep. Ciwa score at ~0400=4 for headache 8/10- declined intervention and stated nothing really helps. Per MHT M.N- Alonzo made comments to him during the evening shift group regarding his plan to stay the weekend, try to leave Tuesday to go home to drink vodka and commit suicide. ACTION: Constant observation continued as ordered for safety. Monitor safety and sleep. Promote sleep. Available for needs. Vitals and Ciwa assessment done per order. RESPONSE: Alonzo remains safe. As of 599 Alonzo is documented to have appeared to sleep ~6.25 hours this shift. 24 hour sleep total=~10.75 hours. * Plan of Care - Howie Marques RN - 08/10/2018 2232 EDT Problem: Daily Care Plan Goals Goal: Care Plan Documentation Outcome: Ongoing 08/10/18 1645 Care Plan Focus Area of Focus Safety Goal This Shift Patient will remain safe on the unit [id number] Data: Locus of harm level 4. Indorsed SI and a plan to go out into the [place] and drink himself to . BP 175/79 HR 73. CIWA score 10. Received PRN Ativan. Patient was unsteady on his feet. Reported mild nausea. Good appetite at lunch. Patient received scheduled BP medications. Asleep at 1330. BP94/51 when rechecked HR 55. Expressed feelings of hopelessness, guilt and shame. Patient was incontinent of urine. Showered with assistance due to sedation. Reported 5- 8/10 headache. Action: Monitor for safety. Constant observation. One to one offered. Groups encouraged. CIWA protocol. VS Q 4 hours. PRN Ativan for CIWA protocol x 1. PRN Tylenol for headache at 1815. Response: Patient remains safe. Expressed feelings of worthlessness. Good appetite at dinner. Attended 1 group. Patient stated he felt overwhelmed after the group. Patient was tearful at expressed increased SI. Patient stated I guess I'll just have to manipulate my way out of here. Patient requested and Received PRN Atarax at HS. CIWA 8 at 2000 for headache and anxiety. Patient appeared to sleep intermittently for 2.5 hours from [id number]. Howie Marques RN 08/10/2018 22:17 * Daily Progress Note - Meghan Swartz MS - 08/10/2018 1704 EDT Met with Alonzo to review the group schedule and give him the WRAP booklet. He seemed very uninterested in the book and was more concerned with the fact that he feels that he is not being helped here,that no one has called his job yet and that he has done all this to himself. He was unable to identify any goals at this time. He appeared irritable, very drowsy and presented with depressed affect. Mgehan Swartz MS 08/10/18 * Plan of Care - Pillo Kramer RN - 08/10/2018 1127 EDT Problem: Daily Care Plan Goals Goal: Care Plan Documentation Outcome: Met This Shift 08/10/18 0800 Care Plan Focus Area of Focus Safety Goal This Shift pt will remain safe on unit Data: Care of patient [id number]. Pt presents this shift with a depressed mood and a self-reported sad affect. Endorsing feelings of hopelessness, guilt, and shame. I'm a piece of shit. States we should discharge him so his bed can go to someone worthy of help. Pt often tearful. Pt continues to endorse SI (without a stated plan), and is unable to contract for safety. However, he is occasionally future-oriented, he wondered how to get his impounded car back and how to tell his employer thathe is in the hospital. Med compliant this shift. Utilized PRN Tylenol and PRN Motrin for a 9/10 [place] with minimal effect. Pt on hourly CIWA, scoring a 12 and a 14 this shift. Pt resting at this time. Action: Monitor for safety, administer medication per MAR, therapeutic 1:1, available for needs Response: Pt remains safe on unit Pillo Kramer RN 08/10/2018 11:20 * Plan of Care - Nancy Ventura, MELY - 08/10/2018 0833 EDT Problem: Daily Care Plan Goals Goal: Care Plan Documentation 08/10/18 0000 Care Plan Focus Area of Focus Sleep Goal This Shift sleep 6-8 hours Data: Pt sleeping soundly, difficult to rouse, but did eventually acknowledged nurse's presence, unable to understand responses and pt snoring loudly again within seconds; pt observed to be apneic for 20-30 seconds, desaturations noted to 80's but quickly recovered to greater than 92% with gasps and deep spontaneous breaths; pt extremely depressed, says he would act on suicidal ideation if opportunity presented; pt reported headache increasing in intensity after taking tylenol Action: constant observations, hourly CIWA scoring, assisted with stand to void X2 (pt too sedated and unsteady to use BR), risk/pain assessment, APAP 500mg given at 0558; supportive 1:1, updated MD (on unit to assess pt ~0715) Response: Pt heavily sedated, very difficult to get any responses (other than groans and unitelligable sounds until 0300, gradually more responsive with each CIWA assessment, score 1 at 0300, 3 at 0400 and 0500, scored 6 at 0600 and 8 at 0700; since waking, pt has been tearful, I just want to ,I'm no good and you shouldn't be wasting your time on me, just give me a bottle of vodka NANCY VENTURA RN 08/10/2018 8:17 * Plan of Care - Chuyita Miller RN - 08/10/2018 0004 EDT Problem: Daily Care Plan Goals Goal: Care Plan Documentation 08/09/18 2000 Care Plan Focus Area of Focus Safety Goal This Shift pt will remain safe on unit Data: Pt arrived on unit at approx 1730. He is calm and cooperative. Pt is crying and states he does not want to live anymore and I know how I'd do it. Pt spoke of wanting to set fire to his house.When asked if he can remain safe on unit he states, it depends how upset I get. He goes on to state that if he were to hurt himself on unit he would do it in a way that would not get anyone in trouble, even his 1:1. This was discussed with Dr Sifuentes and it was decided that pt will remain on 1:1 for the night for safety. Pt states he is a horrible person and that he wears a mask and tells people what they want to hear. He states that 12 years ago he stole oxycontin prescribed to his when he already had his own supply and took extra one night and fell asleep. When he awoke his wasdead from a PE and he believes if he hadn't done this she would be alive. He states that his daughter 6 months prior after using alcohol and cocaine at a green party and choking on food. Pt states he has been 4X and that he ruins every relationship he has. Pt began drinking excessively again a year ago after GF of 3 years broke up with him for relapsing on crack and alcohol [place]. Pt states he has been regularly drinking vodka up to 2 L per day since then. Hereports that last night he drank 2L of vodka and then went on a [address] to a bar in [facility] for no reason he can think of. Pt got a DUI (2nd in a year) And was thrown into a dry out facility in [place] for the night. He was brought to hospital in [facility] after reporting he was suicidal at [place]. Pt reports he has never received psychiatric treatment and has not been on meds for depression previously. CIWA at 1945 is 17, pt receives 4 mg ativan. Pt fell asleep shortly after ativan administration. He is snoring loudly and difficult to rouse for subsequent CIWA scoring. O2 sat during initial VS after falling asleep are fluctuating between 64% and 95%. MD and CAT nurse made aware. O2 sats taken after are 90% and above. Pt had urinary incontinence X1. He was changed with assistance. Pt initially declined dinner but then asked for a hamburger after medication. He fell asleep before food was able to be obtained and remained sleeping for the shift. Action: monitored for safety on unit, nursing database completed, assess for etoh w/d, medications per order, VS, supportive 1:1, encouraged food and fluids. Response: Pt remains sleeping at this time on 1:1. CIWA scoring q hr. Chuyita Miller RN 08/09/2018 23:47 documented in this encounter Plan of Treatment Upcoming Encounters Date Type Department Care Team (Late st Contact Info) Description 01/23/2024 10:00 EDT Office Visit [facility] General Surgery - [address] [id number] Bon Gutierrez MD [address] [place] [address], [address] [place] [id number] 09/10/2024 10:00 EDT Appointment Shaina Mejia [address] [place], [place] [id number] Scheduled Referrals Name Type Priority Associated Diagnoses Orde r Schedule AMB CONS/FOLLOW UP NEUROLOGY Outpatient Referral Routine Other migraine with status migrainosus, not intractable Ordered: 08/24/2018 documented as of this encounter Procedures Procedure Name Priority Date/Time Associated Diagnosis Comments MISCELLANEOUS TEST, [place]RI[place] Routine 09/07/2018 12:43 EDT HEMOGLOBIN A1C Routine 09/07/2018 6:44 EDT RAD US LIVER WITH DOPPLER Routine 09/06/2018 17:31 EDT GLUCOSE, GLUCOMETER Routine 09/06/2018 1 6:53 EDT BUN Routine 09/06/2018 9:45 EDT CREATININE Routine 09/06/2018 9:45 EDT AMMONIA Routine 09/06/2018 9:45 EDT PROTIME Routine 09/02/2018 11:33 EDT COMPLETE BLOOD COUNT Routine 09/02/2018 11:33 EDT BUN Routine 09/02/2018 11:33 EDT ALT Routine 09/02/2018 11:33 EDT AST Routine 09/02/2018 11:33 EDT CREATININE Routine 09/02/2018 11:33 EDT BILIRUBIN, TOTAL Routine 09/02/2018 11:3 3 EDT LIPID PROFILE (INCLUDES CHOLESTEROL, TRIGLYCERIDES, HDL, LDL) Routine 09/02/2018 11:33 EDT ELECTROLYTES Routine 09/02/2018 11:33 EDT MR HEAD WO CONTRAST Routine 09/02/2018 8 :49 EDT OCCULT BLOOD DIAGNOSTIC, FECES Routine 09/01/2018 23:[address] HEAD WO CONTRAST Routine 09/01/2018 1 6:50 EDT GLUCOSE, GLUCOMETER Routine 09/01/2018 1 6:33 EDT AMMONIA Routine 09/01/2018 11:20 EDT HOLD SST Routine 09/01/2018 11:17 EDT HOLD LAVENDER TOP Routine 09/01/2018 11: 17 EDT COMPLETE BLOOD COUNT Routine 09/01/2018 11:17 EDT ELECTROLYTES Routine 09/01/2018 11:17 EDT DRUG SCREEN 11, URINE Routine 09/01/2018 10:53 EDT URINE CULTURE IF POSITIVE Routine 09/01/2018 10:53 EDT URINE CHEMICAL (DIP) & SEDIMENT (MICRO) WITHOUT REFLEX TO CULTURE Routine 09/01/2018 10:53 EDT INPATIENT ADD-ON Routine 09/01/2018 10:3 0 EDT NEPHROLOGY PROFILE (INCLUDES BUN, CREATININE, CALCULATED GFR, ELECTROLYTES, CALCIUM, PHOSPHORUS, ALBUMIN) STAT 08/25/2018 10:30 EDT CK STAT 08/25/2018 10:30 EDT AMMONIA STAT 08/25/2018 10:30 EDT PROTIME Routine 08/21/2018 17:30 EDT BILIRUBIN DIRECT/INDIRECT Routine 08/21/2018 17:30 EDT COMPLETE BLOOD COUNT Routine 08/20/2018 7:12 EDT ALT Routine 08/20/2018 7:12 EDT AST Routine 08/20/2018 7:12 EDT CREATININE Routine 08/20/2018 7:[address] HEAD WO CONTRAST Routine 08/15/2018 1 5:44 EDT THIAMIN (VITAMIN B1), WB Routine 08/11/2018 10:10 EDT AMMONIA Routine 08/11/2018 10:10 EDT INPATIENT ADD-ON Routine 08/10/2018 9:05 EDT SCREENING GLUCOSE Routine 08/09/2018 21: 16 EDT COMPLETE BLOOD COUNT AND DIFFERENTIAL Routine 08/09/2018 21:16 EDT BUN Routine 08/09/2018 21:16 EDT ALT Routine 08/09/2018 21:16 EDT AST Routine 08/09/2018 21:16 EDT TSH Routine 08/09/2018 21:16 EDT ALKALINE PHOSPHATASE Routine 08/09/2018 21:16 EDT GGT Routine 08/09/2018 21:16 EDT CREATININE Routine 08/09/2018 21:16 EDT ALBUMIN Routine 08/09/2018 21:16 EDT ELECTROLYTES Routine 08/09/2018 21:16 EDT documented in this encounter Results * MISCELLANEOUS TEST, [place] (09/07/2018 12:43 EDT) Test Name Citalopram Serum 09/07/2018 13:18 EDT [facility] Result See Pathology Scanned Report in [facility]. 09/12/2018 16:25 EDT [facility] Ref Range See Pathology Scanned Report in [facility]. 09/12/2018 16:25 EDT [facility] Ref Lab Test performed by: 09/12/2018 16:25 EDT [facility] Comment: [facility] [place], [place] Specimen of unknown material (specimen) TOPOGRAPHY UNKNOWN / Unknown 09/07/2018 12:43 EDT 09/07/2018 13:18 EDT Sania THORNTON CHEMISTRY & BLOOD GA S ORDERABLES [facility] [address] [place] [address] * HEMOGLOBIN A1C (09/07/2018 6:44 EDT) Hemoglobin A1C 5.7 % 09/07/2018 8:49 EDT [facility] Comment: Reference Range: <5.7% Normal 5.7-6.4% Prediabetes =>6.5% Diagnostic for diabetes (if confirmed) Goals for glycemic control in diabetes ADA 2017 For non adults with diabetes: ?? Target <7.0% For children and adolescents with type 1 diabetes: ?? Target <7.5% More or less stringent targets may be appropriate for individual patients. Est Avg Glucose 117 mg/dl 9 8:49 EDT [facility] Comment: eAG represents the A1c result expressed as average glucose in mg/dl. Blood specimen (specimen) BLOOD SPECIMEN / Unknown 09/07/2018 6:44 EDT 09/07/2018 7:02 EDT Sania THORNTON CHEMISTRY & BLOOD GA S ORDERABLES Performing Organization Address City/State/[facility] Co de Phone Number [facility] [address] [place] [address] * RAD US LIVER WITH DOPPLER (09/06/2018 17:31 EDT) Anatomical Region Laterality Modality Other 09/06/2018 17:3 1 EDT 09/07/2018 12:19 EDT Narrative 09/07/2018 12:19 EDT RAD US LIVER WITH DOPPLER ??09/06/2018 5:31 PM Signs and Symptoms/Comments: ?? patency of TIPS Technique: Grayscale, cine, color Doppler, and spectral tracing images of the liver were performed. Comparison: CT 06/29/2018, ultrasound 06/24/2018, 11/09/2016 Findings: The liver heterogeneous in echotexture and measures 13.7 centimeters with surface contour nodularity. No focal hepatic lesion is identified. The patient has a TIPS. No ascites, or recanalization of the umbilical vein is seen. Doppler evaluation of the following vessels was performed: Main Portal Vein: 28.6 cm/sec TIPS proximal: 66 cm/sec(previously 22 cm/s) TIPS mid: 119 cm/sec(previously 71 cm/s) TIPS distal: 132 cm/sec(Previously 66 cm/s) Right portal vein: Not visualized (similar to prior exam) Left portal vein: Not visualized (similar to prior exam) Right Hepatic Vein: 140 cm/sec Vessel Diameters: Main Portal Vein: Tidal Resp 1.3 cm, IVC 1.9 cm and title respiration. Impression: 1. Flow velocities through the TIPS have increased since prior imaging, however, directionality and flow remain normal and this is similar to ultrasound measurements from 2017. 2. Cirrhotic configuration of the liver. I have personally reviewed the images and the above interpretation and agree with the findings. Procedure Note Umu Giron MD, - 09/07/2018 RAD US LIVER WITH DOPPLER 09/06/2018 5:31 PM Signs and Symptoms/Comments: patency of TIPS Technique: Grayscale, cine, color Doppler, and spectral tracing images of the liver were performed. Comparison: CT 06/29/2018, ultrasound 06/24/2018, 11/09/2016 Findings: The liver heterogeneous in echotexture and measures 13.7 centimeters with surface contour nodularity. No focal hepatic lesion is identified. The patient has a TIPS. No ascites, or recanalization of the umbilical vein is seen. Doppler evaluation of the following vessels was performed: Main Portal Vein: 28.6 cm/sec TIPS proximal: 66 cm/sec(previously 22 cm/s) TIPS mid: 119 cm/sec(previously 71 cm/s) TIPS distal: 132 cm/sec(Previously 66 cm/s) Right portal vein: Not visualized (similar to prior exam) Left portal vein: Not visualized (similar to prior exam) Right Hepatic Vein: 140 cm/sec Vessel Diameters: Main Portal Vein: Tidal Resp 1.3 cm, IVC 1.9 cm and title respiration. Impression: 1. Flow velocities through the TIPS have increased since prior imaging, however, directionality and flow remain normal and this is similar to ultrasound measurements from 2017. 2. Cirrhotic configuration of the liver. I have personally reviewed the images and the above interpretation and agree with the findings. Sania THORNTON IMG US ORDERABLES * (ABNORMAL) GLUCOSE, GLUCOMETER (09/06/2018 16:53 EDT) Glucose, Fingerstick 212(H) 70 - 100 mg/dl 09/06/2018 18:55 EDT [facility] Parts Technician ID [id number] 09/06/2018 18:55 EDT [facility] Comment:Test Performed by [facility] Services BLOOD SPECIMEN / Unknown 09/06/2018 16:53 EDT 09/06/2018 18:55 EDT Sonali Mills MD CHEMISTRY & BLOOD GAS ORDERABLES Performing Organization Address City/[facility]/ZIP Co de Phone Number [facility] [address] [place] [address] * (ABNORMAL) AMMONIA (09/06/2018 9:45 EDT) Ammonia 88(H) <34 umol/L 09/06/2018 10:12 EDT [facility] Blood specimen (specimen) BLOOD SPECIMEN / Unknown 09/06/2018 9:45 EDT 09/06/2018 9:55 EDT Sania THORNTON CHEMISTRY & BLOOD GA S ORDERABLES Performing Organization Address [facility] Co de Phone Number [facility] [address] [place] [address] * CREATININE (09/06/2018 9:45 EDT) Creatinine 0.76 0.66 - 1.25 mg/dl 09/06/2018 10:48 EDT [facility] GFR, Calculated 96 >60 ml/min/1.7 3m2 09/06/2018 10:48 EDT [facility] Comment: eGFR calculated using CKD-EPI equation for non Americans. Multiply eGFR by 1.16 for Americans. Blood specimen (specimen) BLOOD SPECIMEN / Unknown 09/06/2018 9:45 EDT 09/06/2018 10:15 EDT Sania THORNTON CHEMISTRY & BLOOD GA S ORDERABLES Performing Organization Address [facility]/ZIP Co de Phone Number [facility] [address] [place] [address] * BUN (09/06/2018 9:45 EDT) BUN 18 10 - 26 mg/dl 09/06/2018 10:48 EDT [facility] Blood specimen (specimen) BLOOD SPECIMEN / Unknown 09/06/2018 9:45 EDT 09/06/2018 10:15 EDT Sania THORNTON CHEMISTRY & BLOOD GA S ORDERABLES Performing Organization Address City/[facility]/ZIP Co de Phone Number [facility] [address] [place] [phone] * LIPID PROFILE (INCLUDES CHOLESTEROL, TRIGLYCERIDES, HDL, LDL) (09/02/2018 11:33 EDT) Cholesterol 178 mg/dl 09/02/2018 12:11 [facility] Comment: Desirable:<200 Borderline High:200-239 High:>sc=231 Triglycerides 45 mg/dl 09/02/2018 12:11 [facility] Comment: Normal:<150 Borderline High:150-199 High:200-499 Very High:>jr=642 HDL 85 mg/dl 09/02/2018 12:11 [facility] Comment: Low:<40 Normal:40-60 Desirable: >60 LDL, Calculated 84 mg/dl 9 12:11 [facility] Comment: Optimal:<100 Near Optimal:100-129 Borderline High:130-159 High:160-189 Very High:>lv=753 Chol/HDL Ratio 2.1 09/02/2018 12:11 [facility] Fasting? Unknown 09/02/2018 12:11 [facility] Non HDL Cholesterol 93 mg/dl 09/02/2018 12:11 [facility] Comment: Desirable:<130 Borderline:130-159 High: 160-189 Very High: >mp=960 Blood specimen (specimen) BLOOD SPECIMEN / Unknown 09/02/2018 11:33 EDT 09/02/2018 11:43 EDT Katina Garzon MD CHEMISTRY & BLOOD GA S ORDERABLES Performing Organization Address City/[facility]/ZIP Co de Phone Number [facility] [address] [place] [address] * (ABNORMAL) COMPLETE BLOOD COUNT (09/02/2018 11:33 EDT) WBC 3.03(L) 4.0 - 10.4 K/cmm 09/02/2018 11:51 EDT [facility] RBC 4.29(L) 4.36 - 5.78 M/cmm 09/02/2018 11:51 [facility] Hemoglobin 10.7(L) 13.8 - 17.3 gm/dl 09/02/2018 11:51 [facility] HCT 34.4(L) 39.5 - 50.2 % 09/02/2018 11:51 [facility] MCV 80(L) 81 - 95 fl 09/02/2018 11:51 [facility] MCH 24.9(L) 27.6 - 33.0 pg 09/02/2018 11:51 [facility] Hypochromia 1+ 09/02/2018 11:51 [facility] MCHC 31.1(L) 32.8 - 36.4 gm/dl 09/02/2018 11:51 [facility] RDW-CV 19.1(H) <14.2 % 09/02/2018 11:51 [facility] RDW-SD 54.9(H) <46.0 fl 09/02/2018 11:51 [facility] Anisocytosis 2+ 09/02/2018 11:51 [facility] PLT 133(L) 141 - 377 K/cmm 09/02/2018 11:51 [facility] MPV 9.6 9.5 - 12.7 fl 09/02/2018 11:51 [facility] Blood specimen (specimen) BLOOD SPECIMEN / Unknown 09/02/2018 11:33 EDT 09/02/2018 11:43 EDT Katina Garzon MD HEMATOLOGY & PF4 ORD ERABLES [facility] [address] [place] [address] * (ABNORMAL) PROTIME (09/02/2018 11:33 EDT) Pro Time 13.8(H) 10.3 - 13.4 secs 09/02/2018 11:59 EDT [facility] I.N.R. 1.2(H) 0.9 - 1.1 Ratio 09/02/2018 11:59 EDT [facility] Comment: Moderate Intensity Coumadin INR = 2.0-3.0 Adjustments in anticoagulant therapy dose should be based upon the INR and NOT the Pro Time. Blood specimen (specimen) BLOOD SPECIMEN / Unknown 09/02/2018 11:33 EDT 09/02/2018 11:43 EDT Katina Garzon MD HEMATOLOGY & PF4 ORD ERABLES Performing Organization Address [facility] de Phone Number [facility] [address] [place] [address] * BILIRUBIN, TOTAL (09/02/2018 11:33 EDT) Bilirubin, Total 0.9 <1.4 mg/dl 09/02/2018 12:11 EDT [facility] Blood specimen (specimen) BLOOD SPECIMEN / Unknown 09/02/2018 11:33 EDT 09/02/2018 11:43 EDT Katina Garzon MD CHEMISTRY & BLOOD GA S ORDERABLES Performing Organization Address [facility] Co de Phone Number [facility] [address] [place] [address] * ALT (09/02/2018 11:33 EDT) ALT 29 21 - 72 U/L 09/02/2018 12:11 EDT [facility] Blood specimen (specimen) BLOOD SPECIMEN / Unknown 09/02/2018 11:33 EDT 09/02/2018 11:43 EDT Katina Garzon MD CHEMISTRY & BLOOD GA S ORDERABLES [facility] [address] [place] [address] * AST (09/02/2018 11:33 EDT) AST 33 15 - 46 U/L 09/02/2018 12:11 EDT [facility] Blood specimen (specimen) BLOOD SPECIMEN / Unknown 09/02/2018 11:33 EDT 09/02/2018 11:43 EDT Katina Garzon MD CHEMISTRY & BLOOD GA S ORDERABLES Performing Organization Address [facility] Co de Phone Number [facility] [address] [place] [address] * CREATININE (09/02/2018 11:33 EDT) Creatinine 0.80 0.66 - 1.25 mg/dl 09/02/2018 12:11 EDT [facility] GFR, Calculated 94 >60 ml/min/1.7 3m2 09/02/2018 12:11 EDT [facility] Comment: eGFR calculated using CKD-EPI equation for non Americans. Multiply eGFR by 1.16 for Americans. Blood specimen (specimen) BLOOD SPECIMEN / Unknown 09/02/2018 11:33 EDT 09/02/2018 11:43 EDT Katina Garzon MD CHEMISTRY & BLOOD GA S ORDERABLES Performing Organization Address City/[facility]/ZIP Co de Phone Number [facility] [address] [place] [address] * BUN (09/02/2018 11:33 EDT) BUN 17 10 - 26 mg/dl 09/02/2018 12:11 EDT [facility] Blood specimen (specimen) BLOOD SPECIMEN / Unknown 09/02/2018 11:33 EDT 09/02/2018 11:43 EDT Katina Garzon MD CHEMISTRY & BLOOD GA S ORDERABLES [facility] [address] [place] [address] * ELECTROLYTES (09/02/2018 11:33 EDT) Sodium 139 136 - 145 mEq/L 09/02/2018 12:11 EDT [facility] Potassium 4.5 3.5 - 5.0 mEq/L 09/02/2018 12:11 EDT [facility] Chloride 103 96 - 110 mEq/L 09/02/2018 12:11 EDT [facility] CO2 25 22 - 32 mEq/L 09/02/2018 12:11 EDT [facility] Blood specimen (specimen) BLOOD SPECIMEN / Unknown 09/02/2018 11:33 EDT 09/02/2018 11:43 EDT Katina Garzon MD CHEMISTRY & BLOOD GA S ORDERABLES [facility] [address] [place] [address] * MR HEAD WO CONTRAST (09/02/2018 8:49 EDT) Anatomical Region Laterality Modality Other 09/02/2018 8:49 EDT 09/02/2018 10:41 EDT Narrative 09/02/2018 10:41 EDT MR HEAD WO CONTRAST ??09/02/2018 8:49 AM Clinical History: r/o CVA Comparison: CT scan 15 hours prior Technique: Volumetric unenhanced T1-weighted and FLAIR images and axial T2, diffusion and SWI images of the brain were acquired. Findings: ?? The ventricles and extra-axial CSF spaces are within normal limits allowing for mild global volume loss. There is no mass effect or midline shift. No mass, infarct, or hemorrhage is identified. There is periventricular and subcortical white matter hyperintensity on the FLAIR images in a pattern most suggestive of chronic microangiopathic change. Flow voids are present in all major intracranial arteries and dural venous sinuses. The orbits are free of abnormality. A small right mastoid effusion is present. Impression: ?? No infarction is identified. Procedure Note Alonzo Arriola MD, MD - 09/02/2018 MR HEAD WO CONTRAST 09/02/2018 8:49 AM Clinical History: r/o CVA Comparison: CT scan 15 hours prior Technique: Volumetric unenhanced T1-weighted and FLAIR images and axial T2, diffusion and SWI images of the brain were acquired. Findings: The ventricles and extra-axial CSF spaces are within normal limits allowing for mild global volume loss. There is no mass effect or midline shift. No mass, infarct, or hemorrhage is identified. There is periventricular and subcortical white matter hyperintensity on the FLAIR images in a pattern most suggestive of chronic microangiopathic change. Flow voids are present in all major intracranial arteries and dural venous sinuses. The orbits are free of abnormality. A small right mastoid effusion is present. Impression: No infarction is identified. Venecia Ambriz DO IMG MRI OR DERABLES * OCCULT BLOOD DIAGNOSTIC, FECES (09/01/2018 23:51 EDT) Result Negative 09/02/2018 9:24 EDT [facility] Stool specimen (specimen) STOOL SPECIMEN / Unknown 09/01/2018 23:51 EDT 09/02/2018 8:22 EDT Sania THORNTON MICROBIOLOGY - GENER AL ORDERABLES [facility] [address] [place] [address] * CT HEAD WO CONTRAST (09/01/2018 16:50 EDT) Anatomical Region Laterality Modality Other 09/01/2018 16:5 0 EDT 09/01/2018 18:13 EDT Narrative 09/01/2018 18:[address] HEAD WO CONTRAST ??09/01/2018 4:50 PM Clinical History: r/o stroke- acute onset dysarthria Technique: CT head without contrast. Comparison: August 15, 2018 Findings: Ventricular caliber is unchanged from prior. There is no hydrocephalus. The brain shows no mass effect or midline shift. There is extensive periventricular white matter hypoattenuation consistent with chronic microangiopathic change. No distinct loss of pandey-white differentiation is identified. There is normal density in the major blood vessels at the base of the skull. There is a linear hyperdensity along the anterior aspect of the middle cranial fossa which is unchanged from prior and reflects calcification rather than hemorrhage. The orbits show no concerning findings. No concerning abnormality seen in the soft tissues. Paranasal sinuses and mastoid air cells are predominantly well aerated. Prior mastoidectomy on the right. Impression: No large territory infarct is identified. If infarct remains a clinical concern, further evaluation with MRI or CT perfusion may be helpful. Procedure Note Alonzo Arriola MD, - 09/01/2018 CT HEAD WO CONTRAST 09/01/2018 4:50 PM Clinical History: r/o stroke- acute onset dysarthria Technique: CT head without contrast. Comparison: August 15, 2018 Findings: Ventricular caliber is unchanged from prior. There is no hydrocephalus. The brain shows no mass effect or midline shift. There is extensive periventricular white matter hypoattenuation consistent with chronic microangiopathic change. No distinct loss of pandey-white differentiation is identified. There is normal density in the major blood vessels at the base of the skull. There is a linear hyperdensity along the anterior aspect of the middle cranial fossa which is unchanged from prior and reflects calcification rather than hemorrhage. The orbits show no concerning findings. No concerning abnormality seen in the soft tissues. Paranasal sinuses and mastoid air cells are predominantly well aerated. Prior mastoidectomy on the right. Impression: No large territory infarct is identified. If infarct remains a clinical concern, further evaluation with MRI or CT perfusion may be helpful. Sania THORNTON IM CT ORDERABLES * (ABNORMAL) GLUCOSE, GLUCOMETER (09/01/2018 16:33 EDT) Glucose, Fingerstick 111(H) 70 - 100 mg/dl 09/02/2018 3:31 EDT [facility] Parts Technician ID [id number] 09/02/2018 3:31 EDT [facility] Comment:[facility] BLOOD SPECIMEN / Unknown 09/01/2018 16:33 EDT 09/02/2018 3:31 EDT Sonali Mills MD CHEMISTRY & BLOOD GAS ORDERABLES [facility] [address] [place] [address] * (ABNORMAL) AMMONIA (09/01/2018 11:20 EDT) Ammonia 74(H) <34 umol/L 09/01/2018 12:10 EDT [facility] Blood specimen (specimen) BLOOD SPECIMEN / Unknown 09/01/2018 11:20 EDT 09/01/2018 11:36 EDT Sania THORNTON CHEMISTRY & BLOOD GA S ORDERABLES Performing Organization Address [facility] Co de Phone Number [facility] [address] [place] [address] * ELECTROLYTES (09/01/2018 11:17 EDT) Pathologist [facility] Sodium 138 136 - 145 mEq/L 09/01/2018 14:10 EDT [facility] Potassium 4.4 3.5 - 5.0 mEq/L 09/01/2018 14:10 EDT [facility] Comment: Interpret results with caution. Prolonged sample storage may alter result. Chloride 104 96 - 110 mEq/L 09/01/2018 14:10 EDT [facility] CO2 27 22 - 32 mEq/L 09/01/2018 14:10 EDT [facility] Comment: Interpret results with caution. Prolonged sample storage may alter result. BLOOD SPECIMEN / Unknown 09/01/2018 11:17 EDT 09/01/2018 11:37 EDT Sonali Mills MD CHEMISTRY & BLOOD GAS ORDERABLES Performing Organization Address City/[facility]/ZIP Co de Phone Number [facility] [address] [place] [address] * (ABNORMAL) COMPLETE BLOOD COUNT (09/01/2018 11:17 EDT) WBC 2.95(L) 4.0 - 10.4 K/cmm 09/01/2018 11:56 EDT [facility] RBC 4.26(L) 4.36 - 5.78 M/cmm 09/01/2018 11:56 [facility] Hemoglobin 10.7(L) 13.8 - 17.3 gm/dl 09/01/2018 11:56 [facility] HCT 34.6(L) 39.5 - 50.2 % 09/01/2018 11:56 [facility] MCV 81 81 - 95 fl 09/01/2018 11:56 [facility] MCH 25.1(L) 27.6 - 33.0 pg 09/01/2018 11:56 [facility] Hypochromia 1+ 09/01/2018 11:56 [facility] MCHC 30.9(L) 32.8 - 36.4 gm/dl 09/01/2018 11:56 [facility] RDW-CV 18.9(H) <14.2 % 09/01/2018 11:56 [facility] RDW-SD 55.0(H) <46.0 fl 09/01/2018 11:56 [facility] Anisocytosis 1+ 09/01/2018 11:56 [facility] PLT 133(L) 141 - 377 K/cmm 09/01/2018 11:56 [facility] MPV 9.6 9.5 - 12.7 fl 09/01/2018 11:56 [facility] BLOOD SPECIMEN / Unknown 09/01/2018 11:17 EDT 09/01/2018 11:37 EDT Sonali Mills MD HEMATOLOGY & PF4 O RDERABLES [facility] [address] [place] [address] * HOLD SST (09/01/2018 11:17 EDT) Hold SST Hold for further testing. Specimen will be held for 5 days. 09/01/2018 11:37 [facility] BLOOD SPECIMEN / Unknown 09/01/2018 11:17 EDT 09/01/2018 11:37 EDT Sonali Mills MD LAB INFO SERVICE A ND SUPPORT & PHONE RESULT Performing Organization Address City/[facility]/ZIP Co de Phone Number [facility] [address] [place] [address] * HOLD LAVENDER TOP (09/01/2018 11:17 EDT) Hold Purple Top EDTA for hematology will be discarded after 48 hours, differential not available after 12 hours. 09/01/2018 11:37 EDT [facility] BLOOD SPECIMEN / Unknown 09/01/2018 11:17 EDT 09/01/2018 11:37 EDT Sonali Mills MD LAB INFO SERVICE A ND SUPPORT & PHONE RESULT Performing Organization Address [facility] Co de Phone Number [facility] [address] [place] [address] * URINE CULTURE IF POSITIVE (09/01/2018 10:53 EDT) Culture if Indicated Culture not indicated by urinalysis results. 09/01/2018 13:27 EDT [facility] Urine specimen (specimen) TOPOGRAPHY UNKNOWN / Unknown 09/01/2018 10:53 EDT 09/01/2018 13:04 EDT Sania THORNTON MICROBIOLOGY - GENER AL ORDERABLES Performing Organization Address [facility]/ZIP Co de Phone Number [facility] [address] [place] [address] * UA, CHEMICAL AND SEDIMENT ANALYSIS (DIPSTICK AND MICROSCOPIC) (09/01/2018 10:53 EDT) Color, UA Yellow 09/01/2018 13:27 EDT [facility] Clarity, UA Clear 09/01/2018 13:27 EDT [facility] Glucose, UA Neg Neg 09/01/2018 13:27 EDT [facility] Bilirubin, UA Neg Neg 09/01/2018 13:27 EDT [facility] Ketones, UA Neg Neg 09/01/2018 13:27 [facility] Refractometer SG,Urine 1.018 1.001 - 1.035 09/01/2018 13:27 [facility] Blood, UA Neg Neg 09/01/2018 13:27 [facility] pH, UA 7.0 4.6 - 8.0 09/01/2018 13:27 [facility] Protein, UA Neg Neg 09/01/2018 13:27 [facility] Urobilinogen, UA Normal Normal E.U./dl 09/01/2018 13:27 [facility] Nitrite, UA Neg Neg 09/01/2018 13:27 [facility] Leuk Esterase Neg Neg 09/01/2018 13:27 [facility] UA Method Used 09/01/2018 10:10 [facility] Comment: Testing performed using [employer]. Urine RBC Count Automated 0 to 2 0 to 2 /HPF 09/01/2018 13:27 [facility] Urine WBC Count Automated 0 to 3 0 to 3 /HPF 09/01/2018 13:27 [facility] Urine Squamous Epithelial Cell Count, Automated None seen None seen /LPF 09/01/2018 13:27 [facility] Urine Hyaline Casts, Automated < or = 10 < or = 10 /LPF 09/01/2018 13:27 [facility] Urine Bacteria Count, Automated None seen None seen 09/01/2018 13:27 [facility] UA Comment Sediment results 09/01/2018 13:27 [facility] Comment: are unreliable on urines unrefrig >2hrs or refrig >8hrs. Urine specimen (specimen) URINE / Unknown 09/01/2018 10:53 EDT 09/01/2018 13:04 EDT Sania THORNTON URINALYSIS ORDERABLE S [facility] [address] [place] [address] * DRUG SCREEN 11, URINE (09/01/2018 10:53 EDT) Amphetamine Screen Negative screen. 09/01/2018 14:55 [facility] Comment: Confirmation testing available upon request. Suitable for medical purposes only. Will not detect all drugs within class. Cutoff = 500 ng/ml Specimen type is urine. Barbituate Screen Negative screen. 09/01/2018 14:55 [facility] Comment: Confirmation testing available upon request. Suitable for medical purposes only. Will not detect all drugs within class. Cutoff = 200 ng/ml Specimen type is urine. Benzodiazepine Scrn Negative screen. 09/01/2018 14:55 [facility] Comment: Confirmation testing available upon request. Suitable for medical purposes only. Will not detect all drugs within class. Cutoff = 150 ng/ml Specimen type is urine. Cannabinoids Screen Negative screen. 09/01/2018 14:55 [facility] Comment: Confirmation testing available upon request. Suitable for medical purposes only. Will not detect all drugs within class. Cutoff = 50 ng/ml Specimen type is urine. Methadone Screen Negative screen. 09/01/2018 14:55 [facility] Comment: Confirmation testing available upon request. Suitable for medical purposes only. Will not detect all drugs within class. Cutoff = 200 ng/ml Specimen type is urine. Opiates Screen Negative screen. 09/01/2018 14:55 [facility] Comment: Confirmation testing available upon request. Suitable for medical purposes only. Will not detect all drugs within class. Cutoff = 100 ng/ml Specimen type is urine. Oxycodone Screen Negative screen. 09/01/2018 14:55 [facility] Comment: Confirmation testing available upon request. Suitable for medical purposes only. Will not detect all drugs within class. Cutoff = 100 ng/ml Specimen type is urine. Cocaine Metabolites Negative screen. 09/01/2018 14:55 [facility] Comment: Confirmation testing available upon request. Suitable for medical purposes only. Will not detect all drugs within class. Cutoff = 150 ng/ml Specimen type is urine. Buprenorph and Metab Negative screen. 09/01/2018 14:55 [facility] Comment: Confirmation testing available upon request. Suitable for medical purposes only. Will not detect all drugs within class. Cutoff = 10 ng/ml Specimen type is urine. Methamphetamine Scrn Negative screen. 09/01/2018 14:55 EDT [facility] Comment: Confirmation testing available upon request. Suitable for medical purposes only. Will not detect all drugs within class. Cutoff = 500 ng/ml Specimen type is urine. Propoxyphene Screen Negative screen. 09/01/2018 14:55 EDT [facility] Comment: Confirmation testing available upon request. Suitable for medical purposes only. Will not detect all drugs within class. Cutoff = 300 ng/ml Specimen type is urine. Urine specimen (specimen) URINE / Unknown 09/01/2018 10:53 EDT 09/01/2018 13:04 EDT Sania THORNTON GEN LAB UNIT COLLECT ORDERABLES Performing Organization Address [facility] Co de Phone Number [facility] [address] [place] [address] * INPATIENT ADD-ON (09/01/2018 10:30 EDT) Tests to be added CBC,ELECTR OLYTES 09/01/2018 10:26 EDT [facility] Number for problems [id number] 09/01/2018 11:51 EDT [facility] Accession number [id number] 09/01/2018 11:51 EDT [facility] TOPOGRAPHY UNKNOWN / Unknown 09/01/2018 10:30 EDT 09/01/2018 11:50 EDT Sania THORNTON HEMATOLOGY & PF4 ORD ERABLES Performing Organization Address City/[facility] Co de Phone Number [facility] [address] [place] [address] * (ABNORMAL) AMMONIA (08/25/2018 10:30 EDT) Ammonia 56(H) <34 umol/L 08/25/2018 10:56 EDT [facility] Blood specimen (specimen) BLOOD SPECIMEN / Unknown 08/25/2018 10:30 EDT 08/25/2018 10:40 EDT Marko Mckeon MD CHEMISTRY & BLOOD GA S ORDERABLES [facility] [address] [place] [address] * NEPHROLOGY PROFILE (INCLUDES BUN, CREATININE, CALCULATED GFR, ELECTROLYTES, CALCIUM, PHOSPHORUS, ALBUMIN) (08/25/2018 10:30 EDT) Sodium 141 136 - 145 mEq/L 08/25/2018 10:59 T [facility] Potassium 4.2 3.5 - 5.0 mEq/L 08/25/2018 10:59 [facility] Chloride 110 96 - 110 mEq/L 08/25/2018 10:59 [facility] CO2 23 22 - 32 mEq/L 08/25/2018 10:59 [facility] BUN 19 10 - 26 mg/dl 08/25/2018 10:59 [facility] Creatinine 0.77 0.66 - 1.25 mg/dl 08/25/2018 10:59 [facility] GFR, Calculated 95 >60 ml/min/1.7 3m2 08/25/2018 10:59 [facility] Comment: eGFR calculated using CKD-EPI equation for non Americans. Multiply eGFR by 1.16 for Americans. Calcium 10.0 8.5 - 10.5 mg/dl 08/25/2018 10:59 [facility] Calculated Calcium 9.8 8.5 - 10.5 mg/dl 08/25/2018 10:59 [facility] Phosphorus 3.8 2.5 - 4.5 mg/dl 08/25/2018 10:59 [facility] Albumin 4.2 3.4 - 4.9 g/dl 08/25/2018 10:59 [facility] Blood specimen (specimen) BLOOD SPECIMEN / Unknown 08/25/2018 10:30 EDT 08/25/2018 10:40 EDT Marko Mckeon MD PACKAGES & DNA PROBE ORDERABLES Performing Organization Address City/[facility]/ZIP Co de Phone Number [facility] [address] [place] [address] * CK (08/25/2018 10:30 EDT) Pathologist [facility] CK 77 0 - 250 U/L 08/25/2018 10:59 EDT [facility] Blood specimen (specimen) BLOOD SPECIMEN / Unknown 08/25/2018 10:30 EDT 08/25/2018 10:40 EDT Marko Mckeon MD CHEMISTRY & BLOOD GA S ORDERABLES Performing Organization [facility] [place] de Phone Number [facility] [address] [place] [address] * (ABNORMAL) PROTIME (08/21/2018 17:30 EDT) [facility] Pro Time 15.1(H) 10.3 - 13.4 secs 08/21/2018 18:54 EDT [facility] I.N.R. 1.3(H) 0.9 - 1.1 Ratio 08/21/2018 18:54 EDT [facility] Comment: Moderate Intensity Coumadin INR = 2.0-3.0 Adjustments in anticoagulant therapy dose should be based upon the INR and NOT the Pro Time. Blood specimen (specimen) BLOOD SPECIMEN / Unknown 08/21/2018 17:30 EDT 08/21/2018 18:30 EDT Sania DANIELSBS HEMATOLOGY & PF4 ORD ERABLES Performing Organization Address City/[facility]/ZIP Co de Phone Number [facility] [address] [place] [address] * BILIRUBIN DIRECT/INDIRECT (08/21/2018 17:30 EDT) Pathologist [facility] Conjugated Bilirubin 0.0 0.0 - 0.3 mg/dl 08/21/2018 19:11 EDT [facility] Unconjugated Bilirubin 0.5 0.0 - 1.1 mg/dl 08/21/2018 19:11 EDT [facility] Blood specimen (specimen) BLOOD SPECIMEN / Unknown 08/21/2018 17:30 EDT 08/21/2018 18:30 EDT Sania THORNTON CHEMISTRY & BLOOD GA S ORDERABLES [facility] [address] [place] [address] * CREATININE (08/20/2018 7:12 EDT) Creatinine 0.74 0.66 - 1.25 mg/dl 08/20/2018 8:36 EDT [facility] GFR, Calculated 97 >60 ml/min/1.7 3m2 08/20/2018 8:36 EDT [facility] Comment: eGFR calculated using CKD-EPI equation for non Americans. Multiply eGFR by 1.16 for Americans. Blood specimen (specimen) BLOOD SPECIMEN / Unknown 08/20/2018 7:12 EDT 08/20/2018 8:08 EDT Arturo Keller MD CHEMISTRY & BLOOD GA S ORDERABLES Performing Organization Address City/[facility]/ZIP Co de Phone Number [facility] [address] [place] [address] * AST (08/20/2018 7:12 EDT) AST 26 15 - 46 U/L 08/20/2018 8:36 EDT [facility] Blood specimen (specimen) BLOOD SPECIMEN / Unknown 08/20/2018 7:12 EDT 08/20/2018 8:08 EDT Arturo Keller MD CHEMISTRY & BLOOD GA S ORDERABLES Performing Organization Address City/[facility]/ZIP Co de Phone Number [facility] [address] [place] [address] * ALT (08/20/2018 7:12 EDT) ALT 23 21 - 72 U/L 08/20/2018 8:36 EDT [facility] Blood specimen (specimen) BLOOD SPECIMEN / Unknown 08/20/2018 7:12 EDT 08/20/2018 8:08 EDT A Praful Keller MD CHEMISTRY & BLOOD GA S ORDERABLES [facility] [address] [place] [address] * (ABNORMAL) COMPLETE BLOOD COUNT (08/20/2018 7:12 EDT) WBC 2.32(L) 4.0 - 10.4 K/cmm 08/20/2018 8:18 T [facility] RBC 3.69(L) 4.36 - 5.78 M/cmm 08/20/2018 8:18 [facility] Hemoglobin 9.3(L) 13.8 - 17.3 gm/dl 08/20/2018 8:18 [facility] HCT 29.5(L) 39.5 - 50.2 % 08/20/2018 8:18 [facility] MCV 80(L) 81 - 95 fl 08/20/2018 8:18 [facility] MCH 25.2(L) 27.6 - 33.0 pg 08/20/2018 8:18 [facility] Hypochromia 1+ 08/20/2018 8:18 [facility] MCHC 31.5(L) 32.8 - 36.4 gm/dl 08/20/2018 8:18 [facility] RDW-CV 16.4(H) <14.2 % 08/20/2018 8:18 [facility] RDW-SD 46.9(H) <46.0 fl 08/20/2018 8:18 [facility] PLT 121(L) 141 - 377 K/cmm 08/20/2018 8:18 [facility] MPV 9.5 9.5 - 12.7 fl 08/20/2018 8:18 [facility] Blood specimen (specimen) BLOOD SPECIMEN / Unknown 08/20/2018 7:12 EDT 08/20/2018 8:08 EDT A Praful Keller MD HEMATOLOGY & PF4 ORD ERABLES [facility] Organization Address City/State/ZIP Co de Phone Number [facility] [address] [place] [address] * CT HEAD WO CONTRAST (08/15/2018 15:44 EDT) Anatomical Region Laterality Modality Other 08/15/2018 15:4 4 EDT 08/15/2018 16:34 EDT Narrative 08/15/2018 16:[address] HEAD WO CONTRAST ??08/15/2018 3:44 PM SIGNS AND SYMPTOMS/COMMENTS: ?? Head trauma, subacute-chronic, neuro/cognitive deficit TECHNIQUE: ?? Axial non-contrast CT images of the head were obtained from the vertex through the foramen magnum with coronal reformations. COMPARISON: ??None available. FINDINGS: There is no acute intracranial hemorrhage, large vascular territory infarct, space-occupying mass, or abnormal extra-axial fluid collection. The ventricles and sulci are prominent, but otherwise normal in configuration suggestive of mild diffuse parenchymal volume loss. Patchy hypodensities are scattered throughout the periventricular and subcortical white matter suggestive of chronic microangiopathic disease. There is no midline shift. The paranasal sinuses are clear. Prior right mastoidectomy. No fracture is identified. The left temporomandibular joint is subluxed, chronicity uncertain given lack of comparisons. The orbital structures are normal. IMPRESSION: Mild global cerebral volume loss and chronic white matter changes. No acute intracranial process. The left temporal mandibular joint is subluxed, chronicity uncertain. Correlate for any clinical findings to suggest recent injury. I have personally reviewed the images and the above interpretation and agree with the findings. Procedure Note Alonzo Arriola MD - 08/15/2018 CT HEAD WO CONTRAST 08/15/2018 3:44 PM SIGNS AND SYMPTOMS/COMMENTS: Head trauma, subacute-chronic, neuro/cognitive deficit TECHNIQUE: Axial non-contrast CT images of the head were obtained from the vertex through the foramen magnum with coronal reformations. COMPARISON: None available. FINDINGS: There is no acute intracranial hemorrhage, large vascular territory infarct, space-occupying mass, or abnormal extra-axial fluid collection. The ventricles and sulci are prominent, but otherwise normal in configuration suggestive of mild diffuse parenchymal volume loss. Patchy hypodensities are scattered throughout the periventricular and subcortical white matter suggestive of chronic microangiopathic disease. There is no midline shift. The paranasal sinuses are clear. Prior right mastoidectomy. No fracture is identified. The left temporomandibular joint is subluxed, chronicity uncertain given lack of comparisons. The orbital structures are normal. IMPRESSION: Mild global cerebral volume loss and chronic white matter changes. No acute intracranial process. The left temporal mandibular joint is subluxed, chronicity uncertain. Correlate for any clinical findings to suggest recent injury. I have personally reviewed the images and the above interpretation and agree with the findings. Sania THORNTON IMG CT ORDERABLES * THIAMIN (VITAMIN B1), WB (08/11/2018 10:10 EDT) Thiamin (Vit B1), WB 132 70 - 180 nmol/L 08/17/2018 8:07 EDT [facility] Comment: (Note) . ADDITIONAL INFORMATION This test was developed and its performance characteristics determined by [facility] in a manner consistent with CLIA requirements. This test has not been cleared or approved by the U.S. Food and Drug Administration. Performed by: [facility]: [address], [place] [address] Fasting? Unknown 08/11/2018 10:17 EDT [facility] Blood specimen (specimen) BLOOD SPECIMEN / Unknown 08/11/2018 10:10 EDT 08/11/2018 10:17 EDT aSnia THORNTON CHEMISTRY & BLOOD GA S ORDERABLES [facility] [address] [place] [address] * (ABNORMAL) AMMONIA (08/11/2018 10:10 EDT) Ammonia 61(H) <34 umol/L 08/11/2018 10:37 EDT [facility] Blood specimen (specimen) BLOOD SPECIMEN / Unknown 08/11/2018 10:10 EDT 08/11/2018 10:17 EDT Sania THORNTON CHEMISTRY & BLOOD GA S ORDERABLES Performing Organization Address [facility] [place] Co de Phone Number [facility] [address] [place] [address] * INPATIENT ADD-ON (08/10/2018 9:05 EDT) Tests to be added THIAMINE LEVEL 08/10/2018 9:04 EDT [facility] Comment:TSH Number for problems SBP3 08/10/2018 9:28 EDT [facility] Accession number NO PURPLE PROTECTED FROM LIGHT, TSH3 ALREADY RUN 08/09. SPOKE WITH JAX. 08/10/2018 9:28 EDT [facility] TOPOGRAPHY UNKNOWN / Unknown 08/10/2018 9:05 EDT 08/10/2018 9:27 EDT Sania THORNTON HEMATOLOGY & PF4 ORD ERABLES Performing Organization Address City/[facility] Co de Phone Number [facility] [address] [place] [address] * (ABNORMAL) COMPLETE BLOOD COUNT AND DIFFERENTIAL (08/09/2018 21:16 EDT) WBC 2.59(L) 4.0 - 10.4 K/cmm 08/09/2018 21:56 EDT [facility] RBC 3.20(L) 4.36 - 5.78 M/cmm 08/09/2018 21:56 EDT [facility] Hemoglobin 8.3(L) 13.8 - 17.3 gm/dl 08/09/2018 21:56 T [facility] HCT 26.1(L) 39.5 - 50.2 % 08/09/2018 21:56 EDT [facility] MCV 82 81 - 95 fl 08/09/2018 21:56 EDT [facility] MCH 25.9(L) 27.6 - 33.0 pg 08/09/2018 21:56 [facility] Hypochromia 1+ 08/09/2018 21:56 [facility] MCHC 31.8(L) 32.8 - 36.4 gm/dl 08/09/2018 21:56 [facility] RDW-CV 15.5(H) <14.2 % 08/09/2018 21:56 [facility] RDW-SD 46.5(H) <46.0 fl 08/09/2018 21:56 [facility] PLT 105(L) 141 - 377 K/cmm 08/09/2018 21:56 [facility] MPV 9.3(L) 9.5 - 12.7 fl 08/09/2018 21:56 [facility] % Neutrophils 53.2 % 08/09/2018 21:56 [facility] % Lymphocytes 29.0 % 08/09/2018 21:56 [facility] % Monocytes 13.1 % 08/09/2018 21:56 [facility] % Eosinophils 3.9 % 08/09/2018 21:56 [facility] % Basophils 0.4 % 08/09/2018 21:56 [facility] % Immature Grans 0.4 % 08/09/2018 21:56 [facility] ABS Neutrophils 1.38(L) 2.20 - 8.85 K/cmm 08/09/2018 21:56 [facility] ABS Lymphs 0.75(L) 1.09 - 3.30 K/cmm 08/09/2018 21:56 [facility] ABS Monocytes 0.34 0.1 - 0.8 K/cmm 08/09/2018 21:56 [facility] ABS Eosinophils 0.10 0.03 - 0.61 K/cmm 08/09/2018 21:56 [facility] ABS Basophils 0.01 0.01 - 0.11 K/cmm 08/09/2018 21:56 [facility] ABS Immature Grans 0.01 0 - 0.06 K/cmm 08/09/2018 21:56 EDT [facility] Type of Diff: Automated 08/09/2018 21:56 EDT [facility] Blood specimen (specimen) BLOOD SPECIMEN / Unknown 08/09/2018 21:16 EDT 08/09/2018 21:47 EDT Sania THORNTON PACKAGES & DNA PROBE ORDERABLES Performing Organization Address City/[facility]/ZIP Co de Phone Number [facility] [address] [place] [address] * TSH (08/09/2018 21:16 EDT) TSH 1.09 0.47 - 4.68 uIU/ml 08/09/2018 22:52 EDT [facility] Comment: The results of this assay can be falsely lowered due to the consumption of Biotin. Blood specimen (specimen) BLOOD SPECIMEN / Unknown 08/09/2018 21:16 EDT 08/09/2018 21:47 EDT Sania THORNTON CHEMISTRY & BLOOD GA S ORDERABLES Performing Organization Address [facility] [place]/[facility] Co de Phone Number [facility] [address] [place] [address] * ALT (08/09/2018 21:16 EDT) ALT 23 21 - 72 U/L 08/09/2018 22:16 EDT [facility] Blood specimen (specimen) BLOOD SPECIMEN / Unknown 08/09/2018 21:16 EDT 08/09/2018 21:47 EDT Sania THORNTON CHEMISTRY & BLOOD GA S ORDERABLES Performing Organization Address [facility] [place]/[facility] Co de Phone Number [facility] [address] [place] [address] * AST (08/09/2018 21:16 EDT) AST 32 15 - 46 U/L 08/09/2018 22:16 EDT [facility] Blood specimen (specimen) BLOOD SPECIMEN / Unknown 08/09/2018 21:16 EDT 08/09/2018 21:47 EDT Sania Laharish DANIELS CHEMISTRY & BLOOD GA S ORDERABLES Performing Organization Address [facility] [place]/[facility] Co de Phone Number [facility] [address] [place] [address] * ALBUMIN (08/09/2018 21:16 EDT) Albumin 3.7 3.4 - 4.9 g/dl 08/09/2018 22:16 EDT [facility] Blood specimen (specimen) BLOOD SPECIMEN / Unknown 08/09/2018 21:16 EDT 08/09/2018 21:47 EDT Sania Sifuentes [facility] CHEMISTRY & BLOOD GA S ORDERABLES Performing Organization Address [facility] [place]/[facility]/ZIP Co de Phone Number [facility] [address] [place] [address] * GGT (08/09/2018 21:16 EDT) GGT 29 15 - 73 U/L 08/09/2018 22:16 EDT [facility] Blood specimen (specimen) BLOOD SPECIMEN / Unknown 08/09/2018 21:16 EDT 08/09/2018 21:47 EDT Sania Dayharish DANIELS CHEMISTRY & BLOOD GA S ORDERABLES Performing Organization Address City/[facility]/ZIP Co de Phone Number [facility] [address] [place] [address] * ALKALINE PHOSPHATASE (08/09/2018 21:16 EDT) Total Alkaline Phosphatase 81 38 - 126 U/L 08/09/2018 22:16 EDT [facility] Blood specimen (specimen) BLOOD SPECIMEN / Unknown 08/09/2018 21:16 EDT 08/09/2018 21:47 EDT Sania DANIELS CHEMISTRY & BLOOD GA S ORDERABLES Performing Organization Address City/[facility]/ZIP Co de Phone Number [facility] [address] [place] [address] * (ABNORMAL) CREATININE (08/09/2018 21:16 EDT) Creatinine 0.65(L) 0.66 - 1.25 mg/dl 08/09/2018 22:16 EDT [facility] GFR, Calculated 102 >60 ml/min/1.7 3m2 08/09/2018 22:16 EDT [facility] Comment: eGFR calculated using CKD-EPI equation for non Americans. Multiply eGFR by 1.16 for Americans. Blood specimen (specimen) BLOOD SPECIMEN / Unknown 08/09/2018 21:16 EDT 08/09/2018 21:47 EDT Sania DANIELS CHEMISTRY & BLOOD GA S ORDERABLES Performing Organization Address City/[facility]/ZIP Co de Phone Number [facility] [address] [place] [address] * BUN (08/09/2018 21:16 EDT) BUN 15 10 - 26 mg/dl 08/09/2018 22:16 EDT [facility] Blood specimen (specimen) BLOOD SPECIMEN / Unknown 08/09/2018 21:16 EDT 08/09/2018 21:47 EDT Sania DANIELS CHEMISTRY & BLOOD GA S ORDERABLES [facility] [address] [place] [address] * ELECTROLYTES (08/09/2018 21:16 EDT) Sodium 138 136 - 145 mEq/L 08/09/2018 22:16 EDT [facility] Potassium 4.0 3.5 - 5.0 mEq/L 08/09/2018 22:16 EDT [facility] Chloride 106 96 - 110 mEq/L 08/09/2018 22:16 EDT [facility] CO2 24 22 - 32 mEq/L 08/09/2018 22:16 EDT [facility] Blood specimen (specimen) BLOOD SPECIMEN / Unknown 08/09/2018 21:16 EDT 08/09/2018 21:47 EDT Sania Sifuentes [facility] CHEMISTRY & BLOOD GA S ORDERABLES Performing Organization Address City/[facility]/ZIP Co de Phone Number [facility] [address] [place] [address] * (ABNORMAL) SCREENING GLUCOSE (08/09/2018 21:16 EDT) Glucose, Screening 104(H) 70 - 100 mg/dl 08/09/2018 22:16 EDT [facility] Blood specimen (specimen) BLOOD SPECIMEN / Unknown 08/09/2018 21:16 EDT 08/09/2018 21:47 EDT Sania Sifuentes [facility] CHEMISTRY & BLOOD WA S ORDERABLES [facility] [address] [place] [address] documented in this encounter Visit Diagnoses Diagnosis Suicidal ideation- Primary Depression, unspecified depression type Substance abuse ([facility]) Other, mixed, or unspecified nondependent drug abuse, unspecified Suicidal ideation Other migraine with status migrainosus, not intractable Depression Depressive disorder, not elsewhere classified Substance abuse ([facility]) Other, mixed, or unspecified nondependent drug abuse, unspecified documented in this encounter Administered Medications Inactive Administered Medications - up to 3 most recent administrations Medication Order MAR Action Action Date Dose Rate Site acetaminophen (TYLENOL) tablet 1,000 mg 1,000 mg, oral, NOW X1, 1 dose, On Tue08/11/18 at 0915, Routine Given 08/11/2018 9:26 EDT 1,000 mg acetaminophen (TYLENOL) tablet 500 mg 500 mg, oral, EVERY 4 HOURS PRN, Starting on Tue08/09/18 at 2037, Until Tue08/11/18 at 1723, Pain, Routine Given 08/10/2018 18:15 EDT 500 mg Given 08/10/2018 5:58 EDT 500 mg acetaminophen (TYLENOL) tablet 500 mg 500 mg, oral, EVERY 6 HOURS PRN, Starting on Tue08/13/18 at 1445, Until Tue09/12/18 at 1303, Pain, Routine Given 08/27/2018 21:56 EDT 500 mg Given 08/27/2018 6:16 EDT 500 mg Given 08/27/2018 0:04 EDT 500 mg Back acetaminophen (TYLENOL) tablet 500 mg 500 mg, oral, Once (Without Time Specified), 1 dose, Starting on Tue08/20/18 at 2230, Until Tue08/20/18 at 2257, Routine Given 08/20/2018 22:57 EDT 500 mg acetaminophen (TYLENOL) tablet 500 mg 500 mg, oral, Once (Without Time Specified), 1 dose, Starting on Tue08/21/18 at 1945, Until Tue08/21/18 at 2105, Routine Given 08/21/2018 21:05 EDT 500 mg acetaminophen (TYLENOL) tablet 500 mg 500 mg, oral, Once (Without Time Specified), 1 dose, Starting on Tue08/22/18 at 2143, Until Tue08/22/18 at 2154, Routine Given 08/22/2018 21:54 EDT 500 mg acetaminophen (TYLENOL) tablet 500 mg 500 mg, oral, Once (Without Time Specified), 1 dose, Starting on Tue08/24/18 at 2111, Until Tue08/24/18 at 2128, Routine Given 08/24/2018 21:28 EDT 500 mg acetaminophen (TYLENOL) tablet 500 mg 500 mg, oral, NOW X1, 1 dose, On Tue08/25/18 at 1945, Routine Given 08/25/2018 19:45 EDT 500 mg acetaminophen (TYLENOL) tablet 650 mg 650 mg, oral, EVERY 4 HOURS PRN, Starting on Tue08/11/18 at 1300, Until Tue08/13/18 at 1440, Pain, Routine Given 08/13/2018 11:55 EDT 650 mg Given 08/13/2018 7:58 EDT 650 mg Given 08/13/2018 2:52 EDT 650 mg almotriptan (AXERT) tablet 6.25 mg 6.25 mg, oral, DAILY, First dose on Tue08/22/18 at 1400, Until Discontinued, Routine Given 08/25/2018 8:36 EDT 6.25 mg Given 08/24/2018 9:04 EDT 6.25 mg Given 08/23/2018 14:44 EDT 6.25 mg capsaicin (CAPZASIN-HP) 0.1 % cream topical, 3 TIMES DAILY, First dose (after last modification) on 08/26/18 at 0145, Until Discontinued Given 08/26/2018 20:26 EDT Given 08/26/2018 14:37 EDT Given 08/26/2018 8:16 EDT capsaicin (CAPZASIN-HP) 0.1 % cream topical, 4 TIMES DAILY PRN, Starting on Tue08/27/18 at 0030, Until Tue09/08/18 at 1847, Pain Given 08/27/2018 0:25 ED T citalopram (CELEXA) tablet 10 mg 10 mg, oral, DAILY, First dose on Tue08/12/18 at 0900, Until Discontinued, Routine Given 08/14/2018 9:24 EDT 10 mg Given 08/13/2018 8:07 EDT 10 mg Given 08/12/2018 9:18 EDT 10 mg citalopram (CELEXA) tablet 10 mg 10 mg, oral, DAILY, First dose (after last modification) on Tue09/06/18 at 0900, Until Discontinued, Routine Given 09/12/2018 9:06 EDT 10 mg Given 09/11/2018 9:26 EDT 10 mg Given 09/10/2018 8:10 EDT 10 mg citalopram (CELEXA) tablet 20 mg 20 mg, oral, DAILY, First dose (after last modification) on Tue08/15/18 at 0900, Until Discontinued, Routine Given 09/05/2018 9:01 EDT 20 mg Given 09/04/2018 8:47 EDT 20 mg Given 09/03/2018 8:40 EDT 20 mg cyanocobalamin (VITAMIN B-12) tablet 1,000 mcg 1,000 mcg, oral, DAILY, First dose on Tue09/05/18 at 1715, Until Discontinued, Routine Given 09/08/2018 8:38 EDT 1,000 mcg Given 09/07/2018 9:34 EDT 1,000 mcg Given 09/06/2018 8:49 EDT 1,000 mcg haloperidol (HALDOL) tablet 5 mg 5 mg, oral, 2 TIMES DAILY, First dose on Tue08/22/18 at 2100, Until Discontinued, Routine Given 08/24/2018 21:28 EDT 5 mg Given 08/24/2018 9:03 EDT 5 mg Given 08/23/2018 21:29 EDT 5 mg hydrOXYzine (ATARAX) tablet 25 mg 25 mg, oral, EVERY 4 HOURS PRN, Starting on Tue08/09/18 at 2037, Until Tue08/13/18 at 1245, Anxiety, Routine Given 08/13/2018 11:55 EDT 25 mg Given 08/13/2018 8:07 EDT 25 mg Given 08/13/2018 2:52 EDT 25 mg hydrOXYzine (ATARAX) tablet 50 mg 50 mg, oral, EVERY 4 HOURS PRN, Starting on Tue08/13/18 at 1244, Until Tue08/25/18 at 1656, Anxiety, Routine Given 08/22/2018 20:18 EDT 50 mg Given 08/22/2018 4:11 EDT 50 mg Given 08/21/2018 21:04 EDT 50 mg ibuprofen (MOTRIN) tablet 600 mg 600 mg, oral, EVERY 6 HOURS PRN, Starting on Dayan 08/10/18 at 0843, Until Dayan 08/10/18 at 1103, Pain, Headache, Routine Given 08/10/2018 8:57 EDT 600 mg ibuprofen (MOTRIN) tablet 600 mg 600 mg, oral, NOW X1, 1 dose, On 08/13/18 at 1500, Routine Given 08/13/2018 15:11 EDT 600 mg ibuprofen (MOTRIN) tablet 800 mg 800 mg, oral, NOW X1, 1 dose, On Tue08/11/18 at 2245, Routine Given 08/11/2018 22:27 EDT 800 mg ibuprofen (MOTRIN) tablet 800 mg 800 mg, oral, NOW X1, 1 dose, On 08/12/18 at 1130, Routine Given 08/12/2018 11:21 EDT 800 mg ibuprofen (MOTRIN) tablet 800 mg 800 mg, oral, Once (Without Time Specified), 1 dose, Starting on Tue08/25/18 at 1656, Until Tue08/25/18 at 1715, Routine Given 08/25/2018 17:15 EDT 800 mg lactulose (CHRONULAC) 20 gram/30 mL solution 30 mL 30 mL, oral, DAILY, First dose on Tue08/09/18 at 2100, Until Discontinued Given 08/11/2018 9:24 EDT 30 mL Given 08/10/2018 8:57 EDT 30 mL lactulose (CHRONULAC) 20 gram/30 mL solution 30 mL 30 mL, oral, EVERY 6 HOURS PRN, Starting on Tue08/11/18 at 1645, Until Tue08/25/18 at 0735, titrate to BM Given 08/21/2018 20:02 EDT 30 mL Given 08/11/2018 17:27 EDT 30 mL lactulose (CHRONULAC) 20 gram/30 mL solution 30 mL 30 mL, oral, EVERY 6 HOURS, First dose (after last modification) on Tue08/25/18 at 1200, Until Discontinued Given 08/29/2018 8:37 EDT 30 mL Given 08/29/2018 2:24 EDT 30 mL Given 08/28/2018 18:37 EDT 30 mL lactulose (CHRONULAC) 20 gram/30 mL solution 30 mL 30 mL, oral, USER SPECIFIED (2 times per day on Tue), First dose (after last modification) on Tue08/30/18 at 0900, Until Discontinued Given 08/30/2018 9:12 EDT 30 mL lactulose (CHRONULAC) 20 gram/30 mL solution 30 mL 30 mL, oral, DAILY, First dose (after last modification) on Tue08/31/18 at 0900, Until Discontinued Given 09/12/2018 9:07 EDT 30 mL Given 09/11/2018 9:25 EDT 30 mL Given 09/10/2018 8:10 EDT 30 mL lactulose (CHRONULAC) 20 gram/30 mL solution 30 mL 30 mL, oral, EVERY 4 HOURS PRN, Starting on Tue09/02/18 at 0950, Until Tue09/12/18 at 1303, Other, encephalopahty, Routine Given 09/12/2018 2:31 EDT 30 mL Given 09/08/2018 20:07 EDT 30 mL Given 09/04/2018 19:59 EDT 30 mL LORazepam (ATIVAN) tablet 2-4 mg 2-4 mg, oral, EVERY 1 HOUR PRN, Starting on Tue08/09/18 at 1914, Until Tue08/10/18 at 1104, Other, Withdrawal, Routine Given 08/10/2018 10:46 EDT 2 mg Given 08/10/2018 8:56 EDT 2 mg Given 08/09/2018 19:55 EDT 4 mg LORazepam (ATIVAN) tablet 2-4 mg 2-4 mg, oral, EVERY 1 HOUR PRN, Starting on Tue08/10/18 at 1104, Until Tue08/13/18 at 1126, Other, Withdrawal, Routine Given 08/10/2018 12:22 EDT 2 mg losartan (COZAAR) tablet 50 mg 50 mg, oral, DAILY, First dose on Tue08/10/18 at 1130, Until Discontinued, Routine Given 09/12/2018 9:06 EDT 50 mg Given 09/11/2018 9:25 EDT 50 mg Given 09/10/2018 8:10 EDT 50 mg magnesium oxide (MAG-OX) tablet 400 mg 400 mg, oral, DAILY, First dose on Tue08/15/18 at 2100, Until Discontinued, Routine Given 08/30/2018 9:12 EDT 400 mg Given 08/29/2018 8:38 EDT 400 mg Given 08/28/2018 8:03 EDT 400 mg magnesium sulfate 2 g in dextrose 5% (D5W) 250 mL custom IVPB 2 g, intravenous, Administer over 30 Minutes, NOW X1, 1 dose, On Tue08/16/18 at 1730 Given 08/16/2018 20:19 EDT 2 g magnesium sulfate 2 g in dextrose 5% (D5W) 50 mL custom IVPB 2 g, intravenous, Administer over 30 Minutes, NOW X1, 1 dose, On Tue08/16/18 at 0615 Given 08/16/2018 7:15 EDT 2 g melatonin tablet 3 mg 3 mg, oral, NOW X1, 1 dose, On 08/26/18 at 0245, Routine Given 08/26/2018 2:36 EDT 3 mg melatonin tablet 3 mg 3 mg, oral, AT BEDTIME PRN, Starting on Tue08/27/18 at 0014, Until Tue08/29/18 at 1517, Other, insomnia, Routine Given 08/28/2018 20:38 EDT 3 mg Given 08/27/2018 21:56 EDT 3 mg Given 08/27/2018 1:10 EDT 3 mg multivitamin (FLINTSTONES) chewable tablet 2 tablet 2 Tablet, oral, DAILY, First dose on Tue08/15/18 at 2100, Until Discontinued, Routine Given 09/07/2018 20:19 EDT 2 Tablets Given 09/06/2018 20:17 EDT 1 Tablet Given 09/05/2018 18:38 EDT 2 Tablets nadolol (CORGARD) tablet 20 mg 20 mg, oral, DAILY, First dose on Tue08/10/18 at 0930, Until Discontinued, Routine Given 08/16/2018 8:38 EDT 20 mg Given 08/15/2018 9:56 EDT 20 mg Given 08/14/2018 9:24 EDT 20 mg pantoprazole (PROTONIX) tablet 40 mg 40 mg, oral, 2 TIMES DAILY, First dose on Tue08/10/18 at 1300, Until Discontinued, Routine Given 09/08/2018 8:38 EDT 40 mg Given 09/07/2018 20:19 EDT 40 mg Given 09/07/2018 9:34 EDT 40 mg pantoprazole (PROTONIX) tablet 40 mg 40 mg, oral, DAILY, First dose (after last modification) on 09/09/18 at 0900, Until Discontinued, Routine Given 09/12/2018 9:06 EDT 40 mg Given 09/11/2018 9:26 EDT 40 mg Given 09/10/2018 8:10 EDT 40 mg prochlorperazine edisylate (COMPAZINE) injection 10 mg 10 mg, intravenous, NOW X1, 1 dose, On Tue08/16/18 at 0645, Routine Given 08/16/2018 7:21 EDT 10 mg prochlorperazine edisylate (COMPAZINE) injection 10 mg 10 mg, intravenous, NOW X1, 1 dose, On Tue08/16/18 at 1845, Routine Given 08/16/2018 18:34 EDT 10 mg IV sodium chloride 0.9 % BOLUS 1,000 mL 1,000 mL, intravenous, NOW X1, 1 dose, On Tue08/16/18 at 0600, Routine Restarted 08/16/2018 7:13 EDT 1,000 mL 100 mL/hr New Bag 08/16/2018 6:42 EDT 1,000 mL 1000 mL/hr sodium chloride 0.9 % BOLUS 1,000 mL 1,000 mL, intravenous, NOW X1, 1 dose, On Tue08/16/18 at 1815, Routine New Bag 08/16/2018 20:18 EDT 1,000 mL sodium chloride 0.9 % flush 3 mL 3 mL, intravenous, EVERY 8 HOURS, First dose on Tue08/17/18 at 1600, Until Discontinued, Routine Given 08/19/2018 19:00 EDT 3 mL Given 08/19/2018 9:17 EDT 3 mL Given 08/19/2018 0:36 EDT 3 mL thiamine (VITAMIN B1) tablet 100 mg 100 mg, oral, DAILY, First dose on Tue08/10/18 at 0930, Until Discontinued, Routine Given 08/30/2018 9:12 EDT 100 mg Given 08/29/2018 8:37 EDT 100 mg Given 08/28/2018 8:03 EDT 100 mg thiamine (VITAMIN B1) tablet 100 mg 100 mg, oral, DAILY, First dose on Tue09/05/18 at 1715, Until Discontinued, Routine Given 09/08/2018 8:38 EDT 100 mg Given 09/07/2018 9:34 EDT 100 mg Given 09/06/2018 8:49 EDT 100 mg valproate (DEPACON) 1,000 mg in sodium chloride (NS) 0.9 % 100 mL IVPB 1,000 mg, intravenous, Administer over 60 Minutes, NOW X1, 1 dose, On Tue08/16/18 at 1700, Routine Given 08/16/2018 21:25 EDT 1,000 mg documented in this encounter Discontinued Medications Medication Sig Discontinue Reason Start Date End Da te LACTULOSE ORAL Take by mouth. 09/12/2018 pantoprazole (PROTONIX) 40 mg tablet Take 1 tablet by mouth 2 times daily. 07/02/2018 09/12/2018 losartan (COZAAR) 50 mg tablet Take 50 mg by mouth 2 times daily. 09/12/2018 documented as of this encounter Active and Recently Administered Medications Times are shown in EDT. Scheduled Medication Order 09/10/2018 09/11/2018 09/12/2018 citalopram (CELEXA) tablet 10 mg 10 mg, oral, DAILY, First dose (after last modification) on Tue09/06/18 at 0900, Until Discontinued, Routine 0810 (Given - Provider: Judy Hull RN) 0926 (Given - Provider: Shelia Rowe, RN) 09 (Given - Provider: Declan Angeles, MELY) lactulose (CHRONULAC) 20 gram/30 mL solution 30 mL 30 mL, oral, DAILY, First dose (after last modification) on Dayan 08/31/18 at 0900, Until Discontinued 0810 (Given - Provider: Judy Hull RN) 09 (Given - Provider: Shelia Rowe RN) 0907 (Given - Provider: Declan Angeles RN) losartan (COZAAR) tablet 50 mg 50 mg, oral, DAILY, First dose on Dayan 08/10/18 at 1130, Until Discontinued, Routine 0810 (Given - Provider: Judy Hull RN) 09 (Given - Provider: Shelia Rowe RN) 09 (Given - Provider: Declan Angeles RN) pantoprazole (PROTONIX) tablet 40 mg 40 mg, oral, DAILY, First dose (after last modification) on 09/09/18 at 0900, Until Discontinued, Routine 0810 (Given - Provider: Judy Hull RN) 0926 (Given - Provider: Shelia Rowe RN) 09 (Given - Provider: Declan Angeles, MELY) PRN Medication Order 09/10/2018 09/11/2018 09/12/2018 acetaminophen (TYLENOL) tablet 500 mg 500 mg, oral, EVERY 6 HOURS PRN, Starting on 08/13/18 at 1445, Until 09/12/18 at 1303, Pain, Routine lactulose (CHRONULAC) 20 gram/30 mL solution 30 mL 30 mL, oral, EVERY 4 HOURS PRN, Starting on 09/02/18 at 0950, Until 09/12/18 at 1303, Other, encephalopahty, Routine 0231 (Given - Provid er: Sharon Flores RN) documented in this encounter Orders Medications Ordered That Jamison ht Not Have Been Administered Count Last Ordered Date First Ordered Date capsaicin (CAPZASIN-HP) 0.1 % cream 1 08/26 haloperidol (HALDOL) tablet 5 mg 1 08/25/19 19 dihydroergotamine (DHE) injection 1 mg 2 magnesium sulfate 2 g in dex trose 5% (D5W) 50 mL custom IVPB 1 08/16/2018 magnesium sulfate 2g in D5W 50 ml 2 019 prochlorperazine edisylate ( COMPAZINE) injection 10 mg 2 08/16/2018 sodium chloride 0.9 % BOLUS 1,000 mL 1 11/2018 valproate 1,000 mg IV syringe 1 08/16/2018 LORazepam (ATIVAN) injection 1-2 mg 2 08/1008/09/2018 docusate sodium (COLACE) capsule 100 mg 1 0 08/09/2018 magnesium hydroxide (MILK OF MAGNESIA) 400 mg/5 mL suspension 30 mL 1 08/09/2018 senna (SENOKOT) tablet 1 tablet 1 9 Nursing Count Last Ordered Date First Orde red Date NURSING COMMUNICATION 9 08/30/20182018 REMOVE IV 1 08/20/2018 INSERT SALINE LOCK 1 08/17/2018 PATIENT AT LOW RISK FOR VTE: RISK OF MECHANICAL PROPHYLAXIS OUTWEIGHS 1 08/09/2018 PATIENT AT LOW RISK FOR VTE: RISK OF PHARMACOLOGIC PROPHYLAXIS OUTWEIG 1 08/09/2018 Consult Count Last Ordered Date First Orde red Date CONSULT NUTRITION 1 09/06/2018 IV Count Last Ordered Date First Orde red Date IV REQUEST 3 08/21/2018 08/16/2018 Admission Count Last Ordered Date First Orde red Date STATUS: INPATIENT ACUTE ADMISSION 1 019 Transfer Count Last Ordered Date First Orde red Date NOTIFY PPS OF DISCHARGE COMPLETE 1 09/13/19 19 NOTIFY PPS OF ROOM CHANGE COMPLETE 1 2018 Discharge Count Last Ordered Date First Orde red Date DISCHARGE PATIENT 1 09/12/2018 Consult to Social Work Count Last Ordered Date First Ordered Date CONSULT SOCIAL WORK 1 08/09/2018 documented in this encounter Care Teams Automotive Lot Attendant Relationship Specialty Start Date End Date Laurie Wiggins MD PCP - General 05/08/18 03/25/19 documented as of this encounter
--- OUTSIDE RECORDS SUMMARY | 2023-12-21 12:07 | XMS_ITS | Encounter Summary ---
Author Organization [facility] Address [address] [place] [address] Care Team Providers Care Trust Officer Name Role Phone Laurie Wiggins MD Primary Care Provider [phone] Encounter Details Date Type Department Care Team (Late st Contact Info) Description 02/22/2019 Orders Only [facility] Interventional Radiology - [address] [phone] Guicho Rosales MD [address] [place] [address], Level [address] [place] [phone] Alcoholic cirrhosis of liver without ascites (HCC-CMS) [...] Info) Description 01/23/2024 10:00 EDT Office Visit [facility] General Surgery - [address] [id number] Bon Gutierrez MD 111 [facility], [address] [place] [phone] 09/10/2024 10:00 EDT Appointment Shaina Mejia [address] [place], [place] [phone] documented as of this encounter Visit Diagnoses Diagnosis Alcoholic cirrhosis of liver without ascites (HCC-CMS)- Primary Alcoholic cirrhosis of liver documented in this encounter Care Teams Trust Officer Relationship Specialty Start Date End Date Laurie Wiggins MD PCP - General 05/08/18 03/25/19 documented as of this encounter
--- OUTSIDE RECORDS SUMMARY | 2023-12-21 12:07 | XMS_ITS | Encounter Summary ---
Author Organization [facility] Address [address] [place] [address] Care Team Providers Care Security Public Safety Officer Name Role Phone Laurie Wiggins MD Primary Care Provider [phone]- [phone] Encounter Details Date Type Department Care Team (Late st Contact Info) Description 12/20/2018 Orders Only [facility] Interventional Radiology - [address] [address] Guicho Rosales MD [address] [place] [address], [address] [place] [phone] Social History Tobacco Use Types Packs/Day Years [...] Info) Description 01/23/2024 10:00 EDT Office Visit [facility] General Surgery - [address] [phone] Bon Gutierrez MD 111 [facility], [address] [place] [address] 09/10/2024 10:00 EDT Appointment Shaina Bergeron [address] [phone] documented as of this encounter Visit Diagnoses Not on filedocumented in this encounter Care Teams Security Public Safety Officer Relationship Specialty Start Date End Date Laurie Wiggins MD PCP - General 05/08/18 03/25/19 documented as of this encounter
--- OUTSIDE RECORDS SUMMARY | 2023-12-21 12:08 | XMS_ITS | Encounter Summary ---
Author Organization [facility] Address [address] [place] [address] Care Team Providers Care Monorail Hooker Name Role Phone Sari Salgado MD Primary Care Provider [phone] Encounter Details Date Type Department Care Team (Late st Contact Info) Description 10/21/2015 8:32 EDT - 10/21/2015 23:59 [place]T [place] [address] Guicho Rosales MD [address] [place] [address] [address] [place] [phone] Discharge Disposition: Auto Discharge Social History Tobacco [...] you have serious difficulty h earing? No 01/22/2014 Are you blind or do you have serious difficulty seeing, even when wearing glasses? No 01/22/2014 Do you have serious difficul ty walking or climbing stairs? (5 years old or older) No 01/22/2014 Do you have difficulty dress ing or bathing? (5 years old or older) No 01/22/2014 Because of a physical, menta l, or emotional condition, do you have difficulty doing errands alone such as visiting a doctor's office or shopping? (15 years old or older) No 01/22/2014 Cognitive Status Response Date of Assessm ent Because of a physical, menta l, or emotional condition, do you have serious difficulty concentrating, remembering, or making decisions? (5 years old or older) Yes 01/22/2014 documented as of this encounter Discharge Diagnoses Diagnosis Z95.828 Presence of other vascular implants and grafts-Z95.828[ICD-10-CM] documented in this encounter Medications at Time of Discharge Medication Sig Dispensed Refills Start Date End Date LISINOPRIL ORAL Take 100 mg by mouth. documented as of this encounter Discharge Disposition Disposition Code Departure Means Destination Auto Discharge Home documented in this encounter Plan of Treatment Upcoming Encounters Date Type Department Care Team (Late st Contact Info) Description 01/23/2024 10:[address] [facility] General Surgery - [address] [phone] Bon Gutierrez MD [address] [place] [address], [address] [place] [phone] 09/10/2024 10:00 EDT Appointment Shaina Mejia [address] [place] [phone] documented as of this encounter Visit Diagnoses Not on filedocumented in this encounter Care Teams Monorail Hooker Relationship Specialty Start Date End Date Sari Salgado MD PCP - General 10/21/15 11/07/16 documented as of this encounter
--- OUTSIDE RECORDS SUMMARY | 2023-12-21 12:08 | XMS_ITS | Encounter Summary ---
Author Organization [facility] Address [address] [place] [address] Care Team Providers Care Manager Operations Name Role Phone Kamala Rosado MD Primary Care Provider [phone] Encounter Details Date Type Department Care Team (Late st Contact Info) Description 11/21/2014 7:22 EDT - 11/21/2014 23:59 EDT Hospital Encounter [address] [address] Unknown, Provider, Brody Duran MD PhD [address] [place] [address], [address] [place] [address] Discharge Disposition: Auto Discharge Social History Tobacco [...] as of this encounter Discharge Diagnoses Diagnosis 070.54 VIR HEP NEC W/O COMA W HEP C CHRON[ICD-9-CM] documented in this encounter Medications at Time of Discharge Medication Sig Dispensed Refills Start Date End Date ibuprofen (MOTRIN) 200 mg tablet Take 400 mg by mouth every 8 hours as needed for Pain 02/18/2015 ledipasvir-sofosbuvir (HARVONI) 90-400 mg tablet Take 1 Tab by mouth daily. 28 Tab 5 05/15/2014 02/18/2015 omeprazole (PRILOSEC) 20 mg capsule Take 20 mg by mouth daily as needed 02/18/2015 documented as of this encounter Discharge Disposition Disposition Code Departure Means Destination Auto Discharge Home documented in this encounter Plan of Treatment Upcoming Encounters Date Type Department Care Team (Late st Contact Info) Description 01/23/2024 10:00 EDT Office Visit [facility] General Surgery - [address] [phone] Bon Gutierrez MD [address] [facility], [address] [place] [address] 09/10/2024 10:00 EDT Appointment Shaina Bergeron [address] [phone] documented as of this encounter Visit Diagnoses Not on filedocumented in this encounter Care Teams Manager Operations Relationship Specialty Start Date End Date Kamala Rosado MD [address] [address] PCP - General 10/05/13 10/19/15 documented as of this encounter
--- OUTSIDE RECORDS SUMMARY | 2023-12-21 12:08 | XMS_ITS | Encounter Summary ---
Author Organization [facility] Address [address] [place] [address] Care Team Providers Care Ssrs Report Developer Name Role Phone Kamala Rosado MD Primary Care Provider [phone] Encounter Details Date Type Department Care Team (Late st Contact Info) Description 10/30/2014 8:10 EDT - 10/30/2014 23:59 EDT Hospital Encounter [address] [address] Unknown, Provider, Brody Duran MD PhD [address] [place] [address], [address] [place] [address] Discharge Disposition: Auto Discharge Social [...] Sig Dispensed Refills Start Date End Date GLUC/PRANAV-MSM#2/C/D3/MA NG/BORN ([id number] WITH VIT D ORAL) Take 1 Tab by mouth 2 times daily. 11/12/2014 ibuprofen (MOTRIN) 200 mg tablet Take 400 mg by mouth every 8 hours as needed for Pain 02/18/2015 ledipasvir-sofosbuvir (HARVONI) 90-400 mg tablet Take 1 Tab by mouth daily. 28 Tab 5 05/15/2014 02/18/2015 omeprazole (PRILOSEC) 20 mg capsule Take 20 mg by mouth daily as needed 02/18/2015 PV W-O ROCK/FERROUS FUMARATE/FA (M-VIT ORAL) Take 1 Tab by mouth daily. 11/12/2014 UNABLE TO FIND Blood pressure medication unknown 11/12/2014 documented as of this encounter Discharge Disposition Disposition Code Departure Means Destination Auto Discharge Home documented in this encounter Plan of Treatment Upcoming Encounters Date Type Department Care Team (Late st Contact Info) Description 01/23/2024 10:00 EDT Office Visit [facility] General Surgery - [address] [phone] Bon Gutierrez MD 111 [facility], [address] [place] [phone] 09/10/2024 10:00 EDT Appointment Shaina Mejia [address] [place] [phone] documented as of this encounter Visit Diagnoses Not on filedocumented in this encounter Care Teams Ssrs Report Developer Relationship Specialty Start Date End Date Kamala Rosado MD [address] [address] PCP - General 10/05/13 10/19/15 documented as of this encounter
--- OUTSIDE RECORDS SUMMARY | 2023-12-21 12:08 | XMS_ITS | Encounter Summary ---
Author Organization [facility] Address [address] [place] [phone] Care Team Providers Care Research Associate Quality Control Qc Name Role Phone Elissa Alejo PA-C Primary Care Provider [phone] Reason for Visit * Reason Onset Date Comments Appointment Related 12/06/2017 Encounter Details Date Type Department Care Team (Late st Contact Info) Description 12/06/2017 Telephone [facility] Interventional Radiology - [facility] [address] [place] [address] Melissa Munroe, RN [address] [place] [address] Appointment Related Social History Tobacco Use Types [...] Functional Status Response Date of Assess ment Is the person deaf or does h e/she have serious difficulty hearing? Yes 11/09/2016 Are you blind or do you have serious difficulty seeing, even when wearing glasses? No 01/22/2014 Do you have serious difficul ty walking or climbing stairs? (5 years old or older) No 01/22/2014 Do you have difficulty dress ing or bathing? (5 years old or older) No 01/22/2014 Because of a physical, menta l, or emotional condition, does this person have difficulty doing errands alone such as visiting a doctor's office or shopping? No 11/09/2016 Cognitive Status Response Date of Assess ent Because of a physical, menta l, or emotional condition, does this person have serious difficulty concentrating, remembering, or making decisions? No 11/09/2016 documented as of this encounter Miscellaneous Notes * Telephone Encounter - Melissa Tobin, RN - 12/06/2017 0948 EDT Patient calling to clarify if he should have labs drawn prior to his appointment for TIPS follow up12/27/2017 - let Alonzo know I did not see any lab orders, and typically we do not draw for TIPS follow up procedure. Alonzo aware he has an u/s prior to his appointment. Melissa Tobin RN 12/06/2017 9:55 documented in this encounter Plan of Treatment Upcoming Encounters Date Type Department Care Team (Late st Contact Info) Description 01/23/2024 10:00 EDT Office Visit [facility] General Surgery - [address] [phone] Bon Gutierrez MD 111 [facility], [address] [place] [phone] 09/10/2024 10:00 EDT Appointment Shaina Bergeron [address] [phone] documented as of this encounter Visit Diagnoses Not on filedocumented in this encounter Care Teams Research Associate Quality Control Qc Relationship Specialty Start Date End Date Elissa Alejo PA-C [address] [facility] [place] [address] MD [place] [phone] PCP - General 11/09/16 05/07/18 documented as of this encounter
--- OUTSIDE RECORDS SUMMARY | 2023-12-21 12:08 | XMS_ITS | Encounter Summary ---
Author Organization [facility] Address [address] [place] [address] Care Team Providers Care Pyrometer Operator Name Role Phone Elissa Alejo PA-C Primary Care Provider [phone] Reason for Visit * Reason Onset Date Comments Appointment Related 10/27/2017 [facility] Encounter Details Date Type Department Care Team (Late st Contact Info) Description 10/27/[address] [facility] Interventional Radiology - [address] [address] Guicho Rosales MD [address] [place] [address], [place], [address] [place] [address] Appointment Related (CLINIC FOLLOW UP ) Social History Tobacco Use Types Packs/Day Years [...] No 11/09/2016 Cognitive Status Response Date of Assessm ent Because of a physical, menta l, or emotional condition, does this person have serious difficulty concentrating, remembering, or making decisions? No 11/09/2016 documented as of this encounter Miscellaneous Notes * Telephone Encounter - Lizy Hull - 10/27/2017 1100 EDT Called and left a message for Alonzo requesting a call back. Left a message with my title, name and phone number Calling to move his follow up with Dr. Rosales to a different date (currently scheduled for a Tuesday for some reason) and see when he is available, given he is coming up from [place]. Will try again documented in this encounter Plan of Treatment Upcoming Encounters Date Type Department Care Team (Late st Contact Info) Description 01/23/2024 10:[address] [facility] General Surgery - [address] [phone] Bon Gutierrez MD 111 [facility], [address] [place] [phone] 09/10/2024 10:00 EDT Appointment Shaina Bergeron [place] [phone] [place], [place] [address] documented as of this encounter Visit Diagnoses Not on filedocumented in this encounter Care Teams Pyrometer Operator Relationship Specialty Start Date End Date Elissa Alejo PA-C [address] [facility] [place] [address] [place] [phone] PCP - General 11/09/16 05/07/18 documented as of this encounter
--- OUTSIDE RECORDS SUMMARY | 2023-12-21 12:08 | XMS_ITS | Encounter Summary ---
Author Organization [facility] Address [address] [place] [address] Care Team Providers Care Architecture Internship Name Role Phone Kamala Rosado MD Primary Care Provider Reason for Visit * Reason Comments Follow-up Encounter Details Date Type Department Care Team (Late st Contact Info) Description 11/12/2014 9:00 EDT Office Visit [facility] Interventional Radiology - [address] [phone] Guicho Rosales MD [address] [place] [address], Level 1 [place] [address] Other cirrhosis of liver (CMS-HCC) (HCC-CMS) (Primary Dx) Social History Tobacco Use [...] Sign Reading Time Taken Comments Blood Pressure 159/77 11/12/2014 0904 EDT Pulse 67 11/12/2014 09 EDT Temperature - - Respiratory Rate - - Oxygen Saturation - - Inhaled Oxygen Concentration - - Weight 97.1 kg (214 lb) 11/12/2014 09 EDT Height 162.6 cm (5' 4) 11/12/2014 09 EDT Body Mass Index 36.73 11/12/2014 0904 EDT documented in this encounter Functional Status [...] Yes 01/22/2014 documented as of this encounter Progress Notes * Guicho Rosales MD - 11/12/2014 0937 EDT Subjective: Patient ID: Alonzo Urbina is an 59 y.o. male. Chief Complaint Patient presents with ??? Follow-up HPI Alonzo is here in follow up from a TIPS performed in January, for GI bleeding. He has done well and is very pleased with the result. No further bleeding and no confusion or signs of hepatic encephalopathy. He has been on an antiviral medication (Harvoni) for his hepatitis C which makes him lethargic, and therefore he has gained some weight. He will stop taking this medication next week. Patient Active Problem List Diagnosis ??? Chronic hepatitis C without mention of hepatic coma ??? Cirrhosis of liver ??? GI bleed ??? Acute blood loss anemia ??? 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 Hepatic cirrhosis due to chronic hepatitis C infection ??? Hematemesis ??? Rectal bleeding Past Medical History Diagnosis Date ??? Anemia ??? Depression ??? Chronic kidney disease ??? Hepatitis C ??? Cirrhosis of liver ??? Esophageal varices ??? Chronic back pain ??? Leg numbness ??? Colon polyp ??? Mental disorder Past Surgical History Procedure Laterality Date ??? Esophageal varice ligation 2008 or 2009 ??? Hernia repair hiatal hernia ??? Back surgery 1974, 1981 ??? Shoulder surgery 20 years ago ??? Tips procedure 01-28-2014 Family History Problem Relation Age of Onset ??? Cancer Mother ??? Breast Cancer Mother ??? Alcohol Abuse Father ??? Cancer Father ??? Diabetes Father ??? Cancer Sister ??? Crohn's Disease Sister ??? Diabetes Sister ??? Cancer Brother ??? Anesth Problems Brother ??? Cancer Sister ??? Anesth Problems Sister Social History Substance Use Topics ??? Smoking status: Never Smoker ??? Smokeless tobacco: Never Used ??? Alcohol Use: No Outpatient Prescriptions Marked as Taking for the 11/12/14 encounter (Office Visit) with Guicho Rosales MD Medication Sig Dispense Refill ??? ibuprofen (MOTRIN) 200 mg tablet Take 400 mg by mouth every 8 hours as needed for Pain ??? ledipasvir-sofosbuvir (HARVONI) 90-400 mg tablet Take 1 Tab by mouth daily. 28 Tab 5 ??? omeprazole (PRILOSEC) 20 mg capsule Take 20 mg by mouth daily Allergies Allergen Reactions ??? Ambien [Zolpidem] Sleep-driving ROS - See HPI Objective: BP 159/77 mmHg Pulse 67 Ht 162.6 cm (64) Wt 97.07 kg (214 lb) BMI 36.72 kg/m2 Physical Exam Deferred Ultrasound today: No ascites. TIPS velocities have decreased from around 110 cm/sec 3 months ago toaround 80 cm/sec today. Widely patent TIPS. Assessment: Doing well 9 months post TIPS. The TIPS is widely patent and the velocities are within normal limits. Plan: Alonzo was seen today for follow-up. Diagnoses and associated orders for this visit: Other cirrhosis of liver TIPS ultrasound and clinic follow up in 3 months. I spent a total of 20 minutes [...] 01/23/2024 10:00 EDT Office Visit [facility] General Surgery - Main [place] [address] [place] [address] Bon Gutierrez MD 111 [facility], Level 5 [place] [address] 09/10/2024 10:00 EDT Appointment Shaina Bergeron Ultrasound [address] [place], [place] [address] documented as of this encounter Procedures Procedure Name Priority Date/Time Associated Diagnosis Comments RAD US LIVER WITH DOPPLER 02/18/2015 8:29 EST documented in this encounter Results * RAD US LIVER WITH DOPPLER (02/18/2015 8:29 EST) Anatomical Region Laterality Modality Other 02/18/2015 8:29 EST 02/18/2015 9:55 EST Narrative 02/18/2015 9:55 EST RAD US LIVER WITH DOPPLER ??02/18/2015 8:29 AM SIGNS AND SYMPTOMS/COMMENTS: ??571.5-Cirrhosis of liver without mention of ehldavx-MQZ-3-CM; TIPS 01/2014. Comparison: None Technique: Grayscale and Doppler evaluation of the liver and TIPS was performed. ?? Findings: Liver ultrasound and Doppler evaluation of flow is difficult to assess on this exam due to study technique and patient body habitus. The liver is heterogenous in echotexture with a nodular surface contour, measuring 13 cm. No intrahepatic biliary ductal dilatation or focal lesions are seen in the visualized portions of the liver. The gallbladder contains a single non-mobile gallbladder wall polyp. No pericholecystic fluid or wall thickening is present. The right kidney measures 10 cm in length and is free of shadowing calculi or obstruction. Doppler evaluation of shunt velocities is as follows: Main portal vein anastomosis velocity 25 cm/sec, previously 44 cm/sec. Proximal TIPS ??velocity 56 cm/sec, previously 90 cm/sec. Mid TIPS velocity ??88 cm/sec, previously 86 cm/sec. Distal TIPS velocity 85 cm/sec, previously 79 cm/sec. Right hepatic vein anastomosis velocity is 86 cm/sec, previously 96 cm/sec. During tidal respiration diameter of the main portal vein measures 1.1 cm and the IVC measures 2.1 cm in diameter. Direction of flow is similar to prior. Hepatofugal flow noted in the right and left portal veins. There is no abdominal ascites, varices, or recanalization of the paraumbilical vein. Impression: 1. Technically difficult exam given patient body habitus with degraded image quality. 2. Cirrhosis without evidence of focal liver lesions or ??ascites. 3. Patent TIPS with velocities not significantly elevated from patient's baseline. 4. Reversal of flow within the left and right portal veins this was noted on the ultrasound dated 04/30/2014. The more recent priors did not demonstrate reversal of flow. 5. Small gallbladder polyp. I have personally reviewed the images and the above interpretation and agree with the findings. Procedure Note Sarina Carter MD - 02/18/2015 RAD US LIVER WITH DOPPLER 02/18/2015 8:29 AM SIGNS AND SYMPTOMS/COMMENTS: 571.5-Cirrhosis of liver without mention of jdahvjk-TMJ-7-CM; TIPS 01/2014. Comparison: None Technique: Grayscale and Doppler evaluation of the liver and TIPS was performed. Findings: Liver ultrasound and Doppler evaluation of flow is difficult to assess on this exam due to study technique and patient body habitus. The liver is heterogenous in echotexture with a nodular surface contour, measuring 13 cm. No intrahepatic biliary ductal dilatation or focal lesions are seen in the visualized portions of the liver. The gallbladder contains a single non-mobile gallbladder wall polyp. No pericholecystic fluid or wall thickening is present. The right kidney measures 10 cm in length and is free of shadowing calculi or obstruction. Doppler evaluation of shunt velocities is as follows: Main portal vein anastomosis velocity 25 cm/sec, previously 44 cm/sec. Proximal TIPS velocity 56 cm/sec, previously 90 cm/sec. Mid TIPS velocity 88 cm/sec, previously 86 cm/sec. Distal TIPS velocity 85 cm/sec, previously 79 cm/sec. Right hepatic vein anastomosis velocity is 86 cm/sec, previously 96 cm/sec. During tidal respiration diameter of the main portal vein measures 1.1 cm and the IVC measures 2.1 cm in diameter. Direction of flow is similar to prior. Hepatofugal flow noted in the right and left portal veins. There is no abdominal ascites, varices, or recanalization of the paraumbilical vein. Impression: 1. Technically difficult exam given patient body habitus with degraded image quality. 2. Cirrhosis without evidence of focal liver lesions or ascites. 3. Patent TIPS with velocities not significantly elevated from patient's baseline. 4. Reversal of flow within the left and right portal veins this was noted on the ultrasound dated 04/30/2014. The more recent priors did not demonstrate reversal of flow. 5. Small gallbladder polyp. I have personally reviewed the images and the above interpretation and agree with the findings. Guicho Rosales MD IMG US ORDER CLAUDIO documented in this encounter Visit Diagnoses Diagnosis Other cirrhosis of liver (HCC-CMS)- Primary documented in this encounter Discontinued Medications Medication Sig Discontinue Reason Start Date End Da te GLUC/PRANAV-MSM#2/C/D3/ MAHESH/BORN (NEUVZFEN-YMOYUQ-WXF WITH VIT D ORAL) Take 1 Tab by mouth 2 times daily. Discontinued by another clinician 11/12/2014 UNABLE TO FIND Blood pressure medication unknown Discontinued by another clinician 11/12/2014 PV W-O ROCK/FERROUS FUMARATE/FA (M-VIT ORAL) Take 1 Tab by mouth daily. Discontinued by another clinician 11/12/2014 documented as of this encounter Care Teams Architecture Internship Relationship Specialty Start Date End Date Kamala Rosado MD [address] [address] PCP - General 10/05/13 10/19/15 documented as of this encounter
--- OUTSIDE RECORDS SUMMARY | 2023-12-21 12:08 | XMS_ITS | Encounter Summary ---
Author Organization [facility] Address [address] [place] [address] Care Team Providers Care Surface Lay Out Technician Name Role Phone Elissa Alejo PA-C Primary Care Provider [phone] Reason for Visit * Reason Comments Follow-up Tips 01/28/2014 Encounter Details Date Type Department Care Team (Late st Contact Info) Description 11/09/2016 15:00 EDT Office Visit [facility] Interventional Radiology - [address] [address] Guicho Rosales MD [address] [place] [address], [place], Level 1 [place] [address] Other cirrhosis of liver (CMS-HCC) (HCC-CMS) (Primary Dx) Discharge Disposition: Auto Discharge [...] Sign Reading Time Taken Comments Blood Pressure 161/87 11/09/2016 1411 EDT Pulse 91 11/09/2016 1411 EDT Temperature - - Respiratory Rate 17 11/09/2016 1411 EDT Oxygen Saturation - - Inhaled Oxygen Concentration - - Weight 93 kg (205 lb) 11/09/2016 1411 EDT Patien t stated Height 162.6 cm (5' 4) 11/09/2016 1411 EDT Grace ent stated Body Mass Index 35.19 11/09/2016 1411 EDT documented in this encounter Functional Status [...] No 11/09/2016 documented as of this encounter Discharge Diagnoses Diagnosis K74.69 Other cirrhosis of liver-K74.69[ICD-10-CM] documented in this encounter Patient Instructions * Patient Instructions* Lizy Hull - 11/09/2016 15:00 EDT We will see you in one year for an US and office visit. documented in this encounter Discharge Disposition Disposition Code Departure Means Destination Auto Discharge documented in this encounter Progress Notes * Guicho Rosales MD - 11/09/2016 1500 EDT Subjective: Patient ID: Alonzo Urbina is an 61 y.o. male. Chief Complaint Patient presents with ??? Follow-up Tips 01/28/2014 ELIANE Atkinson is here almost three years out from a TIPS placed for a variceal bleed. He is without complaint and has been doing very well. We discussed the need for him to begin hepatoma surveillance since he has cirrhosis. His hepatitis C was previously treated by Dr. Duran. He now lives in [place]. Patient Active Problem List Diagnosis ??? Chronic hepatitis C ??? Cirrhosis of liver ??? GI bleed ??? Acute blood loss anemia ??? 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 Hepatic cirrhosis due to chronic hepatitis C infection ??? Hematemesis ??? Rectal bleeding Past Medical History: Diagnosis Date ??? Anemia ??? Chronic back pain ??? Chronic kidney disease ??? Cirrhosis of liver ??? Colon polyp ??? Depression ??? Esophageal varices ??? Hepatitis C ??? Leg numbness ??? Mental disorder Past Surgical History: Procedure Laterality Date ??? [...] ??? Anesthesia Problem Sister Social Social History Substance Use Topics ??? Smoking status: Never Smoker ??? Smokeless tobacco: Never Used ??? Alcohol use No Outpatient Prescriptions Marked as Taking for the 11/09/16 encounter (Office Visit) with Guicho Rosales MD Medication Sig Dispense Refill ??? buPROPion (WELLBUTRIN XL) 300 mg XL tablet Take 300 mg by mouth daily. ??? LISINOPRIL ORAL Take 100 mg by mouth. Allergies Allergen Reactions ??? Ambien [Zolpidem] Sleep-driving ROS - See HPI Objective: BP (!) 161/87 (BP Cuff Location: Right arm, Patient Position: Sitting, BP Cuff Sizes: Adult, large) Pulse 91 Resp 17 Ht 162.6 cm (64) Comment: Patient stated Wt 93 kg (205 lb) Comment: Patient stated BMI 35.19 kg/m2 Physical Exam Deferred Duplex TIPS ultrasound 11/09/16: Widely patent TIPS Assessment: Patent TIPS Plan: There are no diagnoses linked to this encounter. I spent a total of 25 minutes in face to face time with this patient and 25 minutes of that time was spent in disease review, image review, counseling, treatment planning and coordination of care as described in the progress note. Duplex TIPS ultrasound and IR clinic follow up in one year. Guicho Rosales MD documented in this encounter Plan of Treatment Upcoming Encounters Date Type Department Care Team (Late st Contact Info) Description 01/23/2024 10:00 EDT Office Visit [facility] General Surgery - [facility] [address] [place], [place] [address] Bon Gutierrez MD 111 [facility], Level 5 [place] [phone] 09/10/2024 10:00 EDT Appointment Shaina Bergeron [place] [address] [place], [place] [address] documented as of this encounter Visit Diagnoses Diagnosis Other cirrhosis of liver (HCC-CMS)- Primary documented in this encounter Historical Medications * This list may reflect changes made after this encounter. Medication Sig Dispensed Refills Start Date End Date buPROPion (WELLBUTRIN XL) 300 mg XL tablet Take 300 mg by mouth daily. 06/24/2018 added in this encounter Care Teams Surface Lay Out Technician Relationship Specialty Start Date End Date Elissa Alejo, PA-C [address] [place] [address] MD [place] [phone] PCP - General 11/09/16 05/07/18 documented as of this encounter
--- OUTSIDE RECORDS SUMMARY | 2023-12-21 12:08 | XMS_ITS | Encounter Summary ---
Author Organization [facility] Address [address] [place] [address] Care Team Providers Care Nub Card Tender Name Role Phone Mario Marquez MD Primary Care Provider [phone] Encounter Details Date Type Department Care Team (Late st Contact Info) Description 05/23/2015 Results Only [facility] [phone] Marianna Duarte, QUYNH [address] [address] Social History Tobacco Use Types Packs/Day Years [...] Yes 01/22/2014 documented as of this encounter Plan of Treatment Upcoming Encounters Date Type Department Care Team (Late st Contact Info) Description 01/23/2024 10:00 EDT Office Visit [facility] General Surgery - [address] [phone] Bon Gutierrez MD [address] [place] [address], Level 5 [place] [address] 09/10/2024 10:00 EDT Appointment Shaina Bergeron [address] [address] documented as of this encounter Procedures Procedure Name Priority Date/Time Associated Diagnosis Comments SURGICAL PATHOLOGY Routine 05/23/2015 15 :01 EST documented in this encounter Results * SURGICAL PATHOLOGY (05/23/2015 15:01 EST) Pathology Report: SURGICAL PATHOLOGY REPORT Reports generated via electronic interface contain original data; however they are lacking the format of the original report. Caution should be taken when reading/interpret ing unformatted reports. Name: ? ALMA CARBALLO ? Accession #: ? [id number] ? : ? 1955 (Age: 59) ??M ? Collect Date: ? 05/23/2015 ? Location: ? [facility] ? Receive Date: ? 05/23/2015 ? Provider: MARIANNA BEAUCHAMP Copy to: MARIO MARQUEZ MD ? Final Pathologic Diagnosis: SKIN OF BACK, RIGHT MEDIAL UPPER, SHAVE BIOPSY: - Basal cell carcinoma, nodular type. - Lesion does not extend to biopsy edges in the plane of the sections examined. ??- Lesion measures approximately 0.2 mm to the biopsy base. ??- Lesion measures approximately 1.0 mm to the nearest peripheral edge. ?? Document reviewed and electronically signed by: CORY FUENTES MD Report ??Date: 05/26/2015 14:21 By the signature above, the attending physician certifies that he/she has personally conducted a gross and/or microscopic examination of the described specimens and rendered or confirmed the above diagnosis. Specimen(s) Received: Right medial upper back shave biopsy Clinical History: Pearly, telangiectatic papule; DDx: Nodular basal cell carcinoma vs R/O other; clinical diagnosis code: ??D48.5 Gross Description: ? Received in formalin labelled with proper patient identification (initials W, J) and right medial upper back is a shave biopsy of pink-red skin (0.9 x 0.6 x 0.1 cm). There is an eccentric glistening papule that measures 0.7 x 0.5 x 0.1 cm. The margins are inked black. The specimen is longitudinally bisected and entirely submitted in 1. Joe Connell 05/23/2015 4:13 PM End of Report [facility] 05/23/2015 15:0 1 EST 05/23/2015 15:01 EST Marianna BEAUCHAMP PATHOLOGY ORDERABL ES [facility] [address] [place] [address] documented in this encounter Visit Diagnoses Not on filedocumented in this encounter Care Teams Nub Card Tender Relationship Specialty Start Date End Date Mario Marquez MD [address] [address] PCP - General 10/05/13 10/19/15 documented as of this encounter
--- OUTSIDE RECORDS SUMMARY | 2023-12-21 12:08 | XMS_ITS | Encounter Summary ---
Author Organization [facility] Address [address] [place] [address] Care Team Providers Care Clinical Therapist Name Role Phone Elissa Alejo PA-C Primary Care Provider [phone] Encounter Details Date Type Department Care Team (Late st Contact Info) Description 11/09/2016 12:21 EDT - 11/09/2016 23:59 EDT Hospital Encounter [address] [address] Guicho Rosales MD [address] [place] [address] [address] [place] [phone] Discharge Disposition: Auto Discharge Social History Tobacco [...] as of this encounter Discharge Diagnoses Diagnosis K74.60 Unspecified cirrhosis of liver-K74.60[ICD-10-CM] Z09 Encntr for f/u exam aft trtmt for cond oth than malig neoplm-Z09[ICD-10-CM] documented in this encounter Medications at Time of Discharge Medication Sig Dispensed Refills Start Date End Date buPROPion (WELLBUTRIN XL) 300 mg XL tablet Take 300 mg by mouth daily. 06/24/2018 LISINOPRIL ORAL Take 100 mg by mouth. 06/24/2018 documented as of this encounter Discharge Disposition Disposition Code Departure Means Destination Auto Discharge Home documented in this encounter Plan of Treatment Upcoming Encounters Date Type Department Care Team (Late st Contact Info) Description 01/23/2024 10:00 EDT Office Visit [facility] General Surgery - [address] [phone] Bon Gutierrez MD 111 [facility], [address] [place] [phone] 09/10/2024 10:00 EDT Appointment Shaina Bergeron [address] [place], [place] [address] documented as of this encounter Visit Diagnoses Not on filedocumented in this encounter Care Teams Clinical Therapist Relationship Specialty Start Date End Date Elissa Alejo PA-C [address] [place], [place] [address] [address] [place] [phone] PCP - General 11/09/16 05/07/18 documented as of this encounter
--- OUTSIDE RECORDS SUMMARY | 2023-12-21 12:08 | XMS_ITS | Encounter Summary ---
Author Organization [facility] Address [address] [place] [address] Care Team Providers Care Field Manager Name Role Phone Kamala Rosado MD Primary Care Provider [phone] Encounter Details Date Type Department Care Team (Late st Contact Info) Description 05/23/2015 17:06 EST - 05/23/2015 22:00 [facility] Hospital Encounter [address] [address] Marianna Duarte, QUYNH [address] [address] Discharge Disposition: Home or Self Care Social [...] as of this encounter Discharge Diagnoses Diagnosis D48.5 Neoplasm of uncertain behavior of skin-D48.5[ICD-10-CM] documented in this encounter Discharge Disposition Disposition Code Departure Means Destination Home or Self Care documented in this encounter Plan of Treatment Upcoming Encounters Date Type Department Care Team (Late st Contact Info) Description 01/23/2024 10:00 EDT Office Visit [facility] General Surgery - [address] [phone] Bon Gutierrez MD 111 [facility], Level [address] [place] [phone] 09/10/2024 10:00 EDT Appointment Shaina Bergeron [address] [address] documented as of this encounter Visit Diagnoses Not on filedocumented in this encounter Care Teams Field Manager Relationship Specialty Start Date End Date Kamala Rosado MD [address] [address] PCP - General 10/05/13 10/19/15 documented as of this encounter
--- OUTSIDE RECORDS SUMMARY | 2023-12-21 12:08 | XMS_ITS | Encounter Summary ---
Author Organization [facility] Address [address] [place] [address] Care Team Providers Care Hand Sander Name Role Phone Elissa Alejo PA-C Primary Care Provider [phone] Reason for Visit * Reason Onset Date Comments Appointment Related 12/06/2017 Encounter Details Date Type Department Care Team (Late st Contact Info) Description 12/06/2017 Telephone [facility] Interventional Radiology - [address] [phone] Guicho Rosales MD [address] [place] [address] 1 [place] [address] Appointment Related Social History Tobacco [...] * Telephone Encounter - Lizy Hull - 12/06/2017 4465 EDT Called and spoke with patient, confirmed that he will be here for his appointment on 12/27. Explained I had to get Ultrasound r/s. I have sent a letter with the updated time. Mr. Urbina verbalized understanding and agrees with Plan of Care. No cognitive barriers were identified during this conversation. He has our contact number to call with questions. Lizy Hull documented in this encounter Plan of Treatment Upcoming Encounters Date Type Department Care Team (Late st Contact Info) Description 01/23/2024 10:00 EDT Office Visit [facility] General Surgery - [facility] [address] [place], [place] [address] Bon Gutierrez MD 111 [facility], Level [address] [place] [phone] 09/10/2024 10:00 EDT Appointment Shaina Bergeron Ultrasound [address] [place] [address] documented as of this encounter Visit Diagnoses Not on filedocumented in this encounter Care Teams Hand Sander Relationship Specialty Start Date End Date Elissa Alejo PA-C [address] [place] [address] MD [place] [phone] PCP - General 11/09/16 05/07/18 documented as of this encounter
--- OUTSIDE RECORDS SUMMARY | 2023-12-21 12:08 | XMS_ITS | Encounter Summary ---
Author Organization [facility] Address [address] [place] [address] Care Team Providers Care Item Processor Name Role Phone Laurie Wiggins MD Primary Care Provider [phone] Reason for Visit * Reason Onset Date Comments Discuss Possible Transfer 06/24/2018 Encounter Details Date Type Department Care Team (Late st Contact Info) Description 06/24/[address] [id number] Radha Gamboa MD [address] [address] Discuss Possible Transfer Social History Tobacco Use Types Packs/Day Years [...] No 06/24/2018 Cognitive Status Response Date of Assess ent Because of a physical, menta l, or emotional condition, do you have serious difficulty concentrating, remembering, or making decisions? (5 years old or older) No 06/24/2018 documented as of this encounter Miscellaneous Notes * Telephone Encounter - Radha Gamboa MD - 06/24/2018 0756 EDT IM Hospitalist PPS: Dong Caller: Dr. Zuniga ([facility] ED) Reason for Call: Possible transfer Pt is a 63 yo male with hx cirrhosis secondary to HCV acquired during a blood transfusion in the 1970s, who has received treatment for his HCV, has had a TIPS, and has had varices banded, who is now presented to [facility] with 36 hours of melena. He is HD stable, but Hgb dropped from 13 on 06/[address] Zuniga is requesting transfer to [facility] due to need for blood transfusion in patient who is difficult to match due to multiple previous transfusions. Unfortunately, we do not have any beds available today; next bed expected to be available in [address] Zuniga is going to try [facility]. Pt is not currently accepted for transfer to [facility], but [facility] team will be in touch if further discussion is needed. Radha Gamboa MD, MPH documented in this encounter Plan of Treatment Upcoming Encounters Date Type Department Care Team (Late st Contact Info) Description 01/23/2024 10:00 EDT Office Visit [facility] General Surgery - [address] [phone] Bon Gutierrez MD 111 [facility], [address] [place] [phone] 09/10/2024 10:00 EDT Appointment Shaina Mejia [address] [place] [phone] documented as of this encounter Visit Diagnoses Not on filedocumented in this encounter Care Teams Item Processor Relationship Specialty Start Date End Date Laurie Wiggins MD PCP - General 05/08/18 03/25/19 documented as of this encounter
--- OUTSIDE RECORDS SUMMARY | 2023-12-21 12:08 | XMS_ITS | Encounter Summary ---
Author Organization [facility] Address [address] [place] [address] Care Team Providers Care Box Maker Wood Name Role Phone Kamala Rosado MD Primary Care Provider [phone] Encounter Details Date Type Department Care Team (Late st Contact Info) Description 10/30/2014 Phlebotomy Only [facility] [address] [place] [address] Spaghetti Press Helper, Outpatient Chronic hepatitis C without mention of hepatic coma (Primary Dx) Social History Tobacco Use Types [...] EDT Office Visit [facility] General Surgery - [facility] [address] [place], [place] [address]24[address] Bon Gutierrez MD 111 [facility], [address] [place] [address] 09/10/2024 10:00 EDT Appointment Shaina Bergeron Ultrasound [address] [place] [address] documented as of this encounter Procedures Procedure Name Priority Date/Time Associated Diagnosis Comments HCV RNA DETECT QUANT Routine 10/30/2014 8:20 EDT Chronic hepatitis C without mention of hepatic coma PROTIME Routine 10/30/2014 8:20 EDT Chronic hepatitis C without mention of hepatic coma COMPLETE BLOOD COUNT Routine 10/30/2014 8:20 EDT Chronic hepatitis C without mention of hepatic coma COMPREHENSIVE METABOLIC PANEL (CMP) Routine 10/30/2014 8:20 EDT Chronic hepatitis C without mention of hepatic coma documented in this encounter Results * HCV RNA DETECT QUANT (10/30/2014 8:20 EDT) HCV RNA Detect Quant Undetected IU/mL 10/31/2014 14:54 EDT [facility] Comment: Reference Range: ??Undetected The quantification range of this assay is 15 IU/mL to 100,000,000 IU/mL. Testing was performed by the Mili Ampliprep/Mili TaqMan HCV v2.0 ([employer] Blood specimen (specimen) BLOOD SPECIMEN / Unknown 10/30/2014 8:20 EDT 10/30/2014 8:41 EDT Brody Duran MD PhD CHEMISTRY & BLO OD GAS ORDERABLES Performing Organization Address [facility] Co de Phone Number [facility] [address] [place] [address] * (ABNORMAL) PROTIME (10/30/2014 8:20 EDT) Pro Time 13.3(H) 10.1 - 13.0 secs 10/30/2014 8:57 EDT [facility] I.N.R. 1.2(H) 0.9 - 1.1 Ratio 10/30/2014 8:57 EDT [facility] Comment: Moderate Intensity Coumadin INR = 2.0-3.0 Adjustments in anticoagulant therapy dose should be based upon the INR and NOT the Pro Time. Blood specimen (specimen) BLOOD SPECIMEN / Unknown 10/30/2014 8:20 EDT 10/30/2014 8:41 EDT Brody Duran MD PhD HEMATOLOGY & PF 4 ORDERABLES Performing Organization Address [facility] Co de Phone Number [facility] [address] [place] [address] * (ABNORMAL) COMPREHENSIVE METABOLIC PANEL (CMP) (10/30/2014 8:20 EDT) [facility] Potassium 4.2 3.5 - 5.0 mEq/L 10/30/2014 9:12 [facility] Sodium 142 136 - 145 mEq/L 10/30/2014 9:12 [facility] Chloride 106 96 - 110 mEq/L 10/30/2014 9:12 [facility] CO2 26 24 - 32 mEq/L 10/30/2014 9:12 [facility] Total Alkaline Phosphatase 99 38 - 126 U/L 10/30/2014 9:12 [facility] Bilirubin, Total 1.9(H) <1.4 mg/dl 10/31/19 15 9:12 [facility] AST 27 15 - 46 U/L 10/30/2014 9:12 [facility] ALT 31 21 - 72 U/L 10/30/2014 9:12 [facility] Albumin 3.6 3.4 - 4.9 g/dl 10/30/2014 9:12 [facility] Total Protein 6.8 6.5 - 8.3 g/dl 10/30/2014 9:12 [facility] Creatinine 0.78 0.66 - 1.25 mg/dl 10/30/2014 9:12 [facility] GFR, Calculated 97 >60 ml/min/1.7 3m2 10/30/2014 9:12 [facility] Comment: eGFR calculated using CKD-EPI equation for non Americans. Multiply eGFR by 1.16 for Americans. BUN 14 10 - 26 mg/dl 10/30/2014 9:12 [facility] Calcium 8.9 8.5 - 10.5 mg/dl 10/30/2014 9:12 [facility] Calculated Calcium 9.7 8.5 - 10.5 mg/dl 10/30/2014 9:12 [facility] Glucose, Serum 138(H) 70 - 100 mg/dl 10/30/2014 9:12 [facility] Fasting? No 10/30/2014 8:20 [facility] Blood specimen (specimen) BLOOD SPECIMEN / Unknown 10/30/2014 8:20 EDT 10/30/2014 8:41 EDT Brody Duran MD PhD CHEMISTRY & BLO OD GAS ORDERABLES [facility] [address] [place] [address] * (ABNORMAL) HEMAGRAM (10/30/2014 8:20 EDT) WBC 3.56(L) 4.0 - 10.4 K/cmm 10/30/2014 8:52 [facility] RBC 4.27(L) 4.36 - 5.78 M/cmm 10/30/2014 8:52 [facility] Hemoglobin 14.1 13.8 - 17.3 gm/dl 10/30/2014 8:52 EDT [facility] HCT 40.3 39.5 - 50.2 % 10/30/2014 8:52 EDT [facility] MCV 94 81 - 95 fl 10/30/2014 8:52 EDT [facility] MCH 33.0 27.6 - 33.0 pg 10/30/2014 8:52 EDT [facility] MCHC 35.0 32.8 - 36.4 gm/dl 10/30/2014 8:52 EDT [facility] RDW-CV 14.1 11.8 - 14.1 % 10/30/2014 8:52 EDT [facility] RDW-SD 46.4(H) 36.5 - 45.9 fl 10/30/2014 8:52 EDT [facility] PLT 99(L) 141 - 320 K/cmm 10/30/2014 8:52 T [facility] MPV 6.5(L) 7.5 - 11.2 fl 10/30/2014 8:52 T [facility] Blood specimen (specimen) BLOOD SPECIMEN / Unknown 10/30/2014 8:20 EDT 10/30/2014 8:41 EDT Brody Duran MD PhD HEMATOLOGY & PF 4 ORDERABLES [facility] [address] [place] [address] documented in this encounter Visit Diagnoses Diagnosis Chronic hepatitis C without mention of hepatic coma- Primary documented in this encounter Care Teams Box Maker Wood Relationship Specialty Start Date End Date Kamala Rosado MD [address] [address] PCP - General 10/05/13 10/19/15 documented as of this encounter
--- OUTSIDE RECORDS SUMMARY | 2023-12-21 12:08 | XMS_ITS | Encounter Summary ---
Author Organization [facility] Address [address] [place] [address] Care Team Providers Care Planner Internship Name Role Phone Kamala Rosado MD Primary Care Provider [phone] Reason for Visit * Reason Comments Advice Only Encounter Details Date Type Department Care Team (Late st Contact Info) Description 02/18/2015 9:00 EST Office Visit [facility] Interventional Radiology - [address] [phone] Guicho Rosales MD [address] [place] [address], [address] [place] [address] Other cirrhosis of liver (CMS-HCC) [...] - - Weight 97.1 kg (214 lb) 02/18/2015 0850 EST Height 162.6 cm (5' 4) 02/18/2015 0850 EST Body Mass Index 36.73 02/18/2015 0850 EST documented in this encounter Functional Status [...] Yes 01/22/2014 documented as of this encounter Patient Instructions * Patient Instructions* Mayank Madrid - 02/18/2015 9:10 EST ?? You will receive a reminder appointment letter in the mail approximately 3 months before you aredue for your visit. documented in this encounter Progress Notes * Guicho Rosales MD - 02/18/2015 0913 EST Subjective: Patient ID: Alonzo Urbina is an 59 y.o. male. Chief Complaint Patient presents with ??? 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 He has done remarkably well is off all medications. He feels well and denies confusion, difficulty speaking, tremors, or fluid in the abdomen. Patient Active Problem List Diagnosis ??? Chronic [...] Sister ??? Anesthesia Problem Sister Social History Substance Use Topics ??? Smoking status: Never Smoker ??? Smokeless tobacco: Never Used ??? Alcohol Use: No No outpatient prescriptions have been marked as taking for the 02/18/15 encounter (Office Visit) with Guicho Rosales MD. Allergies Allergen Reactions ??? Ambien [Zolpidem] Sleep-driving ROS - See HPI Objective: Ht 162.6 cm (64) Wt 97.07 kg (214 lb) BMI 36.72 kg/m2 Physical Exam Deferred Duplex ultrasound 02/18/15: Patent TIPS without evidence of a stenosis. Assessment: Patent TIPS. Plan: Alonzo was seen today for advice only. Diagnoses and associated orders for this visit: Other cirrhosis of liver One year IR clinic follow up with duplex ultrasound. I spent a total of 20 minutes [...] Visit [facility] General Surgery - [address] [phone] Bon Gutierrez MD 111 [facility], [address] [place] [phone] 09/10/2024 10:00 EDT Appointment Shaina Mejia [address] [place] [address] documented as of this encounter Procedures Procedure Name Priority Date/Time Associated Diagnosis Comments RAD US LIVER WITH DOPPLER 10/21/2015 10:11 EDT documented in this encounter Results * RAD US LIVER WITH DOPPLER (10/21/2015 10:11 EDT) Anatomical Region Laterality Modality Other 10/21/2015 10:1 1 EDT 10/21/2015 12:03 EDT Narrative 10/21/2015 12:03 EDT RAD US LIVER WITH DOPPLER ??10/21/2015 10:11 AM Clinical History/Comments: K74.69-Other cirrhosis of [id number]; TIPS placed February,. ?? Please obtain TIPS flow velocities. COMPARISON: Multiple prior ultrasounds including the most recent dated February 18, 2015 TECHNIQUE: Grayscale and color Doppler images were obtained of the liver. Hepatic vessels including the TIPS were evaluated with spectral Doppler. FINDINGS: The liver is normal in size measuring 13 cm. The echotexture is diffusely heterogeneous. No focal liver lesions are identified. The gallbladder appears normal and there is no biliary ductal dilatation. Doppler: Main portal vein 22.7 cm/s, previously 25 cm/s Proximal shunt 95.6 cm/s, previously 56 cm/s Mid shunt 88.5 cm/s, previously 88 cm/s Distal shunt 125.6 cm/s, previously 85 cm/s Right hepatic vein 66.3 cm/s, previously 86 cm/s. The left portal vein was not visualized. The right portal vein demonstrates no varices were seen and there is no evidence of recanalized paraumbilical vein. IMPRESSION: 1. Patent TIPS with slightly increased velocities in the proximal and distal shunt compared to the most recent prior ultrasound but less than that seen in July 2014 2. No evidence of ascites or varices Procedure Note Harris Benitez MD - 10/21/2015 RAD US LIVER WITH DOPPLER 10/21/2015 10:11 AM Clinical History/Comments: K74.69-Other cirrhosis of [id number]; TIPS placed February,. Please obtain TIPS flow velocities. COMPARISON: Multiple prior ultrasounds including the most recent dated February 18, 2015 TECHNIQUE: Grayscale and color Doppler images were obtained of the liver. Hepatic vessels including the TIPS were evaluated with spectral Doppler. FINDINGS: The liver is normal in size measuring 13 cm. The echotexture is diffusely heterogeneous. No focal liver lesions are identified. The gallbladder appears normal and there is no biliary ductal dilatation. Doppler: Main portal vein 22.7 cm/s, previously 25 cm/s Proximal shunt 95.6 cm/s, previously 56 cm/s Mid shunt 88.5 cm/s, previously 88 cm/s Distal shunt 125.6 cm/s, previously 85 cm/s Right hepatic vein 66.3 cm/s, previously 86 cm/s. The left portal vein was not visualized. The right portal vein demonstrates no varices were seen and there is no evidence of recanalized paraumbilical vein. IMPRESSION: 1. Patent TIPS with slightly increased velocities in the proximal and distal shunt compared to the most recent prior ultrasound but less than that seen in July 2014 2. No evidence of ascites or varices Guicho Rosales MD [facility] ORDER CLAUDIO documented in this encounter Visit Diagnoses Diagnosis Other cirrhosis of liver (HCC-CMS)- Primary documented in this encounter Discontinued Medications Medication Sig Discontinue Reason Start Date End Da te ledipasvir-sofosbuvir (HARVONI) 90-400 mg tablet Take 1 Tab by mouth daily. Therapy completed 05/15/2014 02/18/2015 documented as of this encounter Care Teams Planner Internship Relationship Specialty Start Date End Date Kamala Rosado MD [address] [address] PCP - General 10/05/13 10/19/15 documented as of this encounter
--- OUTSIDE RECORDS SUMMARY | 2023-12-21 12:08 | XMS_ITS | Encounter Summary ---
Author Organization [facility] Address [address] [place] [address] Care Team Providers Care Sign Erector And Repairer Name Role Phone Kamala Rosado MD Primary Care Provider [phone] Reason for Visit * Reason Onset Date Comments Results 02/19/2015 asking for HCV r esults Encounter Details Date Type Department Care Team (Late st Contact Info) Description 02/19/2015 Telephone [facility] Gastroenterology - [facility] [address] [place] [address] Curt Mejia [facility] [address] [place] [address] Results (asking for HCV results ) Social History Tobacco Use Types Packs/Day [...] Yes 01/22/2014 documented as of this encounter Miscellaneous Notes * Telephone Encounter - Curt Mejia [facility] - 02/19/2015 1141 EST Reviewed 02/17 labs with patient. HCV Quant remains undetected - indicating SVR12. Reviewed letter from Dr. Duran as well. Pt is in agreement with plan; no further questions. documented in this encounter Plan of Treatment Upcoming Encounters Date Type Department Care Team (Late st Contact Info) Description 01/23/2024 10:00 EDT Office Visit [facility] General Surgery - [address] [phone] Bon Gutierrez MD [address] [place] [address], [address] [place] [phone] 09/10/2024 10:00 EDT Appointment Shaina Mejia [address] [place] [address] documented as of this encounter Visit Diagnoses Not on filedocumented in this encounter Care Teams Sign Erector And Repairer Relationship Specialty Start Date End Date Kamala Rosado MD [address] [address] PCP - General 10/05/13 10/19/15 documented as of this encounter
--- OUTSIDE RECORDS SUMMARY | 2023-12-21 12:08 | XMS_ITS | Encounter Summary ---
Author Organization [facility] Address [address] [place] [address] Care Team Providers Care It Administrative Assistant Name Role Phone Kamala Rosado MD Primary Care Provider [phone] Encounter Details Date Type Department Care Team (Latest Contact Info) Description 10/04/2014 Orders Only [facility] Gastroenterology - [facility] [address] [place] [address] [address] Martinez [facility] Chronic hepatitis C without mention of hepatic [...] Info) Description 01/23/2024 10:00 EDT Office Visit [facility] General Surgery - [facility] [address] [place], [place] [address]87[address] Bon Gutierrez MD 111 [facility], [address] [place] [phone] 09/10/2024 10:00 EDT Appointment Shaina Rubio [address] [address] documented as of this encounter Results * HCV RNA DETECT QUANT (10/30/2014 8:20 EDT) [facility] HCV RNA Detect Quant Undetected IU/mL 10/31/2014 14:54 EDT [facility] Comment: Reference Range: ??Undetected The quantification range of this assay is 15 IU/mL to 100,000,000 IU/mL. Testing was performed by the Mili Ampliprep/Mili TaqMan HCV v2.0 ([employer] Blood specimen (specimen) BLOOD SPECIMEN / Unknown 10/30/2014 8:20 EDT 10/30/2014 8:41 EDT Brody Duran MD PhD CHEMISTRY & BLO OD GAS ORDERABLES [facility] [address] [place] [address] documented in this encounter Visit Diagnoses Diagnosis Chronic hepatitis C without mention of hepatic coma- Primary documented in this encounter Care Teams It Administrative Assistant Relationship Specialty Start Date End Date Kamala Rosado MD [address] [address] PCP - General 10/05/13 10/19/15 documented as of this encounter
--- OUTSIDE RECORDS SUMMARY | 2023-12-21 12:08 | XMS_ITS | Encounter Summary ---
Author Organization [facility] Address [address] [place] [address] Care Team Providers Care Hat Lining Blocker Name Role Phone Kamala Rosado MD Primary Care Provider [phone] Reason for Visit * Reason Onset Date Comments Medication Management 11/01/2014 Encounter Details Date Type Department Care Team (Late st Contact Info) Description 11/01/2014 Telephone [facility] [place] [address] [address] [facility] Medication Management Social History Tobacco Use Types [...] as of this encounter Progress Notes * Ct Martinez [facility] - 11/01/2014 1108 EDT Reviewed wk20 HCV labs results: undetected Patient instructed to continue on therapy, adherence counseling completed. Patient denied fatigue, [place], N/V, fever, SOB, pain, rash Next lab week24 due: 11/21; lab slips mailed out to patient as reminder. Patient understood and will comply with above. documented in this encounter Plan of Treatment Upcoming Encounters Date Type Department Care Team (Late st Contact Info) Description 01/23/2024 10:00 EDT Office Visit [facility] General Surgery - [address] [phone] Bon Gutierrez MD [address] [place] [address], [address] [place] [phone] 09/10/2024 10:00 EDT Appointment Shaina Mejia [address] [place] [address] documented as of this encounter Results * HCV RNA DETECT QUANT (11/21/2014 7:25 EDT) HCV RNA Detect Quant Undetected IU/mL 11/22/2014 8:08 EDT [facility] Comment: Reference Range: ??Undetected The quantification range of this assay is 15 IU/mL to 100,000,000 IU/mL. Testing was performed by the Mili Ampliprep/Mili TaqMan HCV v2.0 ([employer] Blood specimen (specimen) BLOOD SPECIMEN / Unknown 11/21/2014 7:25 EDT 11/21/2014 8:43 EDT Brody Duran MD PhD CHEMISTRY & BLO OD GAS ORDERABLES [facility] [address] [place] [address] documented in this encounter Visit Diagnoses Diagnosis Chronic hepatitis C without mention of hepatic coma- Primary documented in this encounter Care Teams Hat Lining Blocker Relationship Specialty Start Date End Date Kamaal Rosado MD [address] [address] PCP - General 10/05/13 10/19/15 documented as of this encounter
--- OUTSIDE RECORDS SUMMARY | 2023-12-21 12:08 | XMS_ITS | Encounter Summary ---
Author Organization [facility] Address [address] [place] [address] Care Team Providers Care Commercial Loan Assistant Name Role Phone Kamala Rosado MD Primary Care Provider [phone] Reason for Visit * Reason Onset Date Comments Results 11/25/2014 End of HCV treat ment labs Encounter Details Date Type Department Care Team (Late st Contact Info) Description 11/25/2014 Telephone [facility] Gastroenterology - [facility] [address] [place] [address] Curt Mejia [facility] [address] [place] [address] Results (End of HCV treatment labs) Social History Tobacco Use Types Packs/Day Years [...] * Telephone Encounter - Curt Mejia [facility] - 11/25/2014 0932 EDT Reviewed HCV RNA wk 24labs: HCV RNA PCR Undetected. Explained patient will need to have lab re-drawn in 12wks to verify SVR. Confirmed follow- up appt with Dr. Duran on 02/28/15 . HCV tx end date: 11/20/14 Next HCV RNA Quant due: 02/13/15 . Mailed lab slip with date for confirmation. Patient verbalized understanding. No further questions. documented in this encounter Plan of Treatment Upcoming Encounters Date Type Department Care Team (Late st Contact Info) Description 01/23/2024 10:00 EDT Office Visit [facility] General Surgery - [address] [phone] Bon Gutierrez MD [address] [place] [address], [address] [place] [phone] 09/10/2024 10:00 EDT Appointment Shaina Mejia [address] [place] [phone] documented as of this encounter Results * HCV RNA DETECT QUANT (02/17/2015 7:07 EST) HCV RNA Detect Quant Undetected IU/mL 02/18/2015 13:50 EST [facility] Comment: Reference Range: ??Undetected The quantification range of this assay is 15 IU/mL to 100,000,000 IU/mL. Testing was performed by the Mili Ampliprep/Mili TaqMan HCV v2.0 ([employer] Blood specimen (specimen) BLOOD SPECIMEN / Unknown 02/17/2015 7:07 EST 02/17/2015 7:39 EST Brody Duran MD PhD CHEMISTRY & BLO OD GAS ORDERABLES [facility] [address] [place] [address] documented in this encounter Visit Diagnoses Diagnosis Chronic hepatitis C without mention of hepatic coma- Primary documented in this encounter Care Teams Commercial Loan Assistant Relationship Specialty Start Date [place] [address] PCP - General 10/05/13 10/19/15 documented as of this encounter
--- OUTSIDE RECORDS SUMMARY | 2023-12-21 12:08 | XMS_ITS | Encounter Summary ---
Author Organization [facility] Address [address] [place] [address] Care Team Providers Care Servicer Coin Machines Name Role Phone Laurie Wiggins MD Primary Care Provider [phone] Encounter Details Date Type Department Care Team (Late st Contact Info) Description 05/10/2018 Orders Only [facility] Interventional Radiology - [address] [address] Guicho Rosales MD [address] [place] [address], Level 1 [place] [phone] Alcoholic cirrhosis of liver without ascites (HCC-CMS) [...] No 11/09/2016 documented as of this encounter Plan of Treatment Upcoming Encounters Date Type Department Care Team (Late st Contact Info) Description 01/23/2024 10:00 EDT Office Visit [facility] General Surgery - [address] [address]30[address] Bon Gutierrez MD 111 [facility], Level 5 [place] [phone] 09/10/2024 10:00 EDT Appointment Shaina Mejia 0 [place], [place] [phone] documented as of this encounter Visit Diagnoses Diagnosis Alcoholic cirrhosis of liver without ascites (HCC-CMS)- Primary Alcoholic cirrhosis of liver documented in this encounter Care Teams Servicer Coin Machines Relationship Specialty Start Date End Date Laurie Wiggins MD PCP - General 05/08/18 03/25/19 documented as of this encounter
--- OUTSIDE RECORDS SUMMARY | 2023-12-21 12:08 | XMS_ITS | Encounter Summary ---
Author Organization [facility] Address [address] [place] [address] Care Team Providers Care Senior Sustainability Advisor Name Role Phone Elissa Alejo PA-C Primary Care Provider [phone] Reason for Visit * Reason Onset Date Comments Appointment Related 11/02/2017 Encounter Details Date Type Department Care Team (Late st Contact Info) Description 11/02/2017 Telephone [facility] Interventional Radiology - [facility] [address] [place] [address] Melissa Munroe, RN [address] [place] [address] Appointment Related Social History Tobacco Use Types [...] Miscellaneous Notes * Telephone Encounter - Melissa Tobin RN - 11/02/2017 1140 EDT Patient called requesting to cancel appointment, states he would like to call back to reschedule vsrescheduling today. documented in this encounter Plan of Treatment Upcoming Encounters Date Type Department Care Team (Late st Contact Info) Description 01/23/2024 10:00 EDT Office Visit [facility] General Surgery - [address] [address] Bon Gutierrez MD 111 [facility] [place] [facility], [facility], Level 5 [place] [phone] 09/10/2024 10:00 EDT Appointment Shaina Bergeron [address] [place], [place] [address] documented as of this encounter Visit Diagnoses Not on filedocumented in this encounter Care Teams Senior Sustainability Advisor Relationship Specialty Start Date End Date Elissa Alejo PAMehreenC [address] [address] [place] [phone] PCP - General 11/09/16 05/07/18 documented as of this encounter
--- OUTSIDE RECORDS SUMMARY | 2023-12-21 12:08 | XMS_ITS | Encounter Summary ---
Author Organization [facility] Address [address] [place] [address] Care Team Providers Care Onyx Chip Terrazzo Worker Name Role Phone Kamala Rosado MD Primary Care Provider [phone] Encounter Details Date Type Department Care Team (Late st Contact Info) Description 11/12/2014 7:29 EDT - 11/12/2014 23:59 EDT Hospital Encounter [address] [address] Guicho Rosales MD [address] [place] [address] 1 [place] [phone] Discharge Disposition: Auto Discharge Social History Tobacco [...] as of this encounter Discharge Diagnoses Diagnosis 571.5 CIRRHOSIS OF LIVER NOS[ICD-9-CM] documented in this encounter Medications at Time [...] Description 01/23/2024 10:00 EDT Office Visit [facility] General Surgery - [address] 822201 Bon Gutierrez MD 111 [facility], Level 5 [place] [phone] 09/10/2024 10:00 EDT Appointment Shaina Mejia [address] [place] [address] documented as of this encounter Visit Diagnoses Not on filedocumented in this encounter Care Teams Onyx Chip Terrazzo Worker Relationship Specialty Start Date End Date Kamala Rosado MD [address] [address] PCP - General 10/05/13 10/19/15 documented as of this encounter
--- OUTSIDE RECORDS SUMMARY | 2023-12-21 12:08 | XMS_ITS | Encounter Summary ---
Author Organization [facility] Address [address] [place] [address] Care Team Providers Care Circle Edger Name Role Phone Elissa Alejo PA-C Primary Care Provider [phone] Encounter Details Date Type Department Care Team (Late st Contact Info) Description 12/27/2017 Results Only [facility] [place]ventional [place] [address] Guicho Rosales MD [address] [place] [address], Level 1 [place] [phone] Social History Tobacco Use Types Packs/Day Years [...] Office Visit [facility] General Surgery - [address] 937021 Bon Gutierrez MD 111 [facility], Level 5 [place] [phone] 09/10/2024 10:00 EDT Appointment Shaina Mejia 0 [place], [place] [address]796 documented as of this encounter Visit Diagnoses Not on filedocumented in this encounter Care Teams Circle Edger Relationship Specialty Start Date End Date Elissa Alejo, PAMehreenC [address] [place] [address] [place] [phone] PCP - General 11/09/16 05/07/18 documented as of this encounter
--- OUTSIDE RECORDS SUMMARY | 2023-12-21 12:08 | XMS_ITS | Encounter Summary ---
Author Organization [facility] Address [address] [place] [address] Care Team Providers Care Drafter (Cad) Electronic Name Role Phone Sari Salgado MD Primary Care Provider [phone] Reason for Referral * Radiology Services (Routine) - Closed Specialty Diagnoses / Procedures Referred By [facility] [place] [facility] Referred To Contact Diagnoses Alcoholic cirrhosis of liver without ascites (HCC-CMS) Procedures RAD US DOPPLER VISCERAL LIMITED Guicho Rosales MD [address] [place] [phone] Referral ID Status Reason Start Date Expiration Date Visits Re quested Visits Authorized [id number] Closed 10/21/2015 1 1 Reason for Visit * Reason Comments Follow-up Encounter Details Date Type Department Care Team (Late st Contact Info) Description 10/21/2015 10:30 EDT Office Visit [facility] Interventional Radiology - [address] [place] [address] [phone] Guicho Rosales MD [address] [place] [phone] Alcoholic cirrhosis of liver without ascites (CMS-HCC) (Primary Dx) Discharge Disposition: Auto Discharge Social [...] Sign Reading Time Taken Comments Blood Pressure 154/76 10/21/2015 1028 EDT Pulse 70 10/21/2015 1028 EDT Temperature - - Respiratory Rate - - Oxygen Saturation - - Inhaled Oxygen Concentration - - Weight 102.1 kg (225 lb) 10/21/2015 1028 EDT Height 162.6 cm (5' 4) 10/21/2015 1028 EDT Body Mass Index 38.62 10/21/2015 1028 EDT documented in this encounter Functional Status [...] liver without ascites-K70.30[ICD-10-CM] documented in this encounter Patient Instructions * Patient Instructions* Estela Dean - 10/21/2015 10:54 EDT We will see you in 1 year with ultrasound and office visit ?? You will receive a reminder appointment letter in the mail approximately 3 months before you aredue for your visit. documented in this encounter Discharge Disposition Disposition Code Departure Means Destination Auto Discharge documented in this encounter Progress Notes * Guicho Rosales MD - 10/21/2015 1100 EDT Subjective: Patient ID: Alonzo Urbina is an 60 y.o. male. Chief Complaint Patient presents with ??? Follow-up HPI Mr. 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 He has done remarkably well. No recurrent hematemesis or hepatic encephalopathy. 6 monthsago, he moved to [place], but he wants to return to [place] annually to monitor his TIPS. Patient Active Problem List Diagnosis ??? Chronic [...] Outpatient Prescriptions Marked as Taking for the 10/21/15 encounter (Office Visit) with Guicho Rosales MD Medication Sig Dispense Refill ??? LISINOPRIL ORAL Take 100 mg by mouth. Allergies Allergen Reactions ??? Ambien [Zolpidem] Sleep-driving ROS - See HPI Objective: BP 154/76 mmHg Pulse 70 Ht 162.6 cm (64) Wt 102.059 kg (225 lb) BMI 38.60 kg/m2 Physical Exam deferred TIPS ultrasound 10/21/15: Patent TIPS without stenosis. Assessment: Doing well 18 months post TIPS. Plan: Alonzo was seen today for follow-up. Diagnoses and all orders for this visit: Alcoholic cirrhosis of liver without ascites Other orders - LISINOPRIL ORAL; Take 100 mg by mouth. TIPS ultrasound and clinic visit in one year. I spent a total of 25 minutes [...] Info) Description 01/23/2024 10:00 EDT Office Visit [facility] General Surgery - [facility] [address] [place], [place] [address] Bon Gutierrez MD 111 [facility] [place] [facility], [facility], Level 5 [place] [phone] 09/10/2024 10:00 EDT Appointment Shaina Rubio Ultrasound [address] [place], [place] [phone] documented as of this encounter Procedures Procedure Name Priority Date/Time Associated Diagnosis Comments RAD US DOPPLER VISCERAL LIMITED Routine 11/09/2016 13:15 EDT Alcoholic cirrhosis of liver without ascites (CMS-HCC) documented in this encounter Results * RAD US DOPPLER VISCERAL LIMITED (11/09/2016 13:15 EDT) Anatomical Region Laterality Modality Other 11/09/2016 13:1 5 EDT 11/09/2016 15:38 EDT Narrative 11/09/2016 15:38 EDT RAD US DOPPLER VISCERAL LIMITED ?? Signs and Symptoms/Comments: ??K70.30-Alcoholic cirrhosis of liver without vqayhuq-AYG-77; TIPS placed February 2014. Technique: Grayscale, color Doppler, and spectral tracing images of the liver were performed. The study was limited due to patient body habitus. Comparison: Ultrasound examinations 10/21/2015, 02/18/2015, 11/12/2014, 07/30/2014, 04/30/2014 Findings: The liver is coarse with heterogeneous echotexture. The liver is small measuring 12 cm. Doppler evaluation of the following vessels was performed: Main portal vein 26.1 cm/s, previously 22.7 cm/s Proximal shunt 91.2 cm/s, previously 95.6 cm/s Mid shunt 72.8 cm/s, previously 80.5 cm/s Distal shunt 97.2 cm/s, previously 125.6 cm/s The right hepatic vein measures 87.9 cm/s and 123.9 on two images, previously 86.3 cm/s. The right portal vein has reversal of flow, as expected. The left portal vein was not identified, similar to prior. No abdominal ascites, varices, or recanalized paraumbilical vein is seen. Main portal vein measures 1.5 cm. IVC measures 1.5 cm. Impression: 1. Patent TIPS with similar velocities in comparison with ultrasound from October 21, 2015. 2. No ascites or varices identified. I have personally reviewed the images and the above interpretation and agree with the findings. Procedure Note Tl Rubio MD - 11/09/2016 RAD US DOPPLER VISCERAL LIMITED Signs and Symptoms/Comments: K70.30-Alcoholic cirrhosis of liver without hauoici-TTY-99; TIPS placed February 2014. Technique: Grayscale, color Doppler, and spectral tracing images of the liver were performed. The study was limited due to patient body habitus. Comparison: Ultrasound examinations 10/21/2015, 02/18/2015, 11/12/2014, 07/30/2014, 04/30/2014 Findings: The liver is coarse with heterogeneous echotexture. The liver is small measuring 12 cm. Doppler evaluation of the following vessels was performed: Main portal vein 26.1 cm/s, previously 22.7 cm/s Proximal shunt 91.2 cm/s, previously 95.6 cm/s Mid shunt 72.8 cm/s, previously 80.5 cm/s Distal shunt 97.2 cm/s, previously 125.6 cm/s The right hepatic vein measures 87.9 cm/s and 123.9 on two images, previously 86.3 cm/s. The right portal vein has reversal of flow, as expected. The left portal vein was not identified, similar to prior. No abdominal ascites, varices, or recanalized paraumbilical vein is seen. Main portal vein measures 1.5 cm. IVC measures 1.5 cm. Impression: 1. Patent TIPS with similar velocities in comparison with ultrasound from October 21, 2015. 2. No ascites or varices identified. I have personally reviewed the images and the above interpretation and agree with the findings. Guicho Rosales MD IM US ORDER CLAUDIO documented in this encounter Visit Diagnoses Diagnosis Alcoholic cirrhosis of liver without ascites (HCC-CMS)- Primary Alcoholic cirrhosis of liver documented in this encounter Historical Medications * This list may reflect changes made after this encounter. Medication Sig Dispensed Refills Start Date End Date LISINOPRIL ORAL Take 100 mg by mouth. added in this encounter Care Teams Drafter (Cad) Electronic Relationship Specialty Start Date End Date Sari Salgado MD PCP - General 10/21/15 11/07/16 documented as of this encounter
--- OUTSIDE RECORDS SUMMARY | 2023-12-21 12:08 | XMS_ITS | Encounter Summary ---
Author Organization [facility] Address [address] [place] [address] Care Team Providers Care Secret Code Expert Name Role Phone Kamala Rosado MD Primary Care Provider [phone] Reason for Visit * Reason Onset Date Comments Other 06/13/2015 Encounter Details Date Type Department Care Team (Late st Contact Info) Description 06/13/2015 Telephone [facility] [place] [address] Estela Dean Other Social History Tobacco Use Types Packs/Day Years [...] encounter Miscellaneous Notes * Telephone Encounter - Estela Dean - 06/13/2015 1224 EST Alonzo called to give us new address in [place]. He wants to keep his care here with Dr. Rosales. Heis scheduled for 09/01 but may change too October instead. documented in this encounter Plan of Treatment Upcoming Encounters Date Type Department Care Team (Late st Contact Info) Description 01/23/2024 10:00 EDT Office Visit [facility] General Surgery - [address] [address] Bon Gutierrez MD 111 [facility], Level 5 [place] [phone] 09/10/2024 10:00 EDT Appointment Shaina Bergeron [address] [place], [place] [address] documented as of this encounter Visit Diagnoses Not on filedocumented in this encounter Care Teams Secret Code Expert Relationship Specialty Start Date End Date Kamala Rosado MD [address] [address] PCP - General 10/05/13 10/19/15 documented as of this encounter
--- OUTSIDE RECORDS SUMMARY | 2023-12-21 12:08 | XMS_ITS | Encounter Summary ---
Author Organization [facility] Address [address] [place] [address] Care Team Providers Care Desktop Technician Name Role Phone Kamala Rosado MD Primary Care Provider [phone] Encounter Details Date Type Department Care Team (Late st Contact Info) Description 02/17/2015 Phlebotomy Only [facility] [address] [place] [address] Tea Tree Farmer, Outpatient Chronic hepatitis C (CMS-HCC) ([facility]-CMS) (Primary Dx) Social History Tobacco Use Types [...] [facility] - [facility] [address] [place], [place] [address] Bon Gutierrez MD 111 [facility], Level 5 [place] [phone] 09/10/2024 10:00 EDT Appointment Shaina Bergeron Ultrasound 0 [place] [address] documented as of this encounter Procedures Procedure Name Priority Date/Time Associated Diagnosis Comments HCV RNA DETECT QUANT Routine 02/17/2015 7:07 EST Chronic hepatitis C (CMS-HCC) (HCC-CMS) documented in this encounter Results * HCV RNA DETECT QUANT (02/17/2015 7:07 EST) HCV RNA Detect Quant Undetected IU/mL 02/18/2015 13:50 EST [facility] Comment: Reference Range: ??Undetected The quantification range of this assay is 15 IU/mL to 100,000,000 IU/mL. Testing was performed by the Mili Ampliprep/Mili TaqMan HCV v2.0 ([employer] Blood specimen (specimen) BLOOD SPECIMEN / Unknown 02/17/2015 7:07 EST 02/17/2015 7:39 EST Brody Duran MD PhD CHEMISTRY & BLO OD GAS ORDERABLES [facility] [address] [place] [address] documented in this encounter Visit Diagnoses Diagnosis Chronic hepatitis C (HCC-CMS)- Primary Chronic hepatitis C without mention of hepatic coma documented in this encounter Care Teams Desktop Technician Relationship Specialty Start Date End Date Kamala Rosado MD [address] [address] PCP - General 10/05/13 10/19/15 documented as of this encounter
--- OUTSIDE RECORDS SUMMARY | 2023-12-21 12:08 | XMS_ITS | Encounter Summary ---
Author Organization [facility] Address [address] [place] [address] Care Team Providers Care Ultrasound Technologist Sonographer Name Role Phone Kamala Rosado MD Primary Care Provider [phone] Reason for Visit * Reason Onset Date Comments Appointment Related 02/04/2015 Encounter Details Date Type Department Care Team (Late st Contact Info) Description 02/04/2015 Telephone [facility] Interventional Radiology - [address] [address] Mayank Madrid Appointment Related Social History Tobacco Use Types [...] encounter Miscellaneous Notes * Telephone Encounter - Mayank Madrid - 02/04/2015 0952 EDT Patient called to verify the date and time of his ultrasound on 02/18/15, 7:15 am check in and 7:45am appointment, followed by an office visit with Dr. Rosales at 9:00 am. Mr. Urbina says he is having labs done in [place] on 02/13/15. He is unsure of the name of the facility he is having them done at, so he will call us back once he has that information. I have also put a reminder on the Clinic Whiteboard on 02/13/15, so I may follow up on his labs. documented in this encounter Plan of Treatment Upcoming Encounters Date Type Department Care Team (Late st Contact Info) Description 01/23/2024 10:00 EDT Office Visit [facility] General Surgery - [facility] [address] [place], [place] [address] Bon Gutierrez MD 111 [facility], Level 5 [place] [phone] 09/10/2024 10:00 EDT Appointment Shaina Mejia [address] [place] [address] documented as of this encounter Visit Diagnoses Not on filedocumented in this encounter Care Teams Ultrasound Technologist Sonographer Relationship Specialty Start Date End Date Kamala Rosado MD [address] [phone] PCP - General 10/05/13 10/19/15 documented as of this encounter
--- OUTSIDE RECORDS SUMMARY | 2023-12-21 12:08 | XMS_ITS | Encounter Summary ---
Author Organization [facility] Address [address] [place] [address] Care Team Providers Care Glass Worker Name Role Phone Elissa Alejo PA-C Primary Care Provider [phone] Laurie Wiggins MD Primary Care Provider [phone] Reason for Visit * Reason Onset Date Comments Appointment Related 12/30/2017 outgoing ref erral for follow up Encounter Details Date Type Department Care Team (Late st Contact Info) Description 12/30/2017 Telephone [facility] Interventional Radiology - [address] [address] Guicho Rosales MD [address] [place] [address] Level 1 [place] [address] Appointment Related (outgoing referral for follow up) Social History Tobacco Use Types [...] No 11/09/2016 Cognitive Status Response Date of [facility] ent Because of a physical, menta l, or emotional condition, does this person have serious difficulty concentrating, remembering, or making decisions? No 11/09/2016 documented as of this encounter Miscellaneous Notes * Telephone Encounter - Lizy Hull - 12/30/2017 1439 EDT Contacted office of listed PCP to refer patient back to primary for follow up care regarding TIPS According to secretary receptionist at [facility], the patient has never been seen by Elissa Alejo, and isnot an established patient in their office. Will reach out to provider and nursing staff and try to find different PCP documentation. documented in this encounter Plan of Treatment Upcoming Encounters Date Type Department Care Team (Late st Contact Info) Description 01/23/2024 10:00 EDT Office Visit [facility] General Surgery - [address] [address] Bon Gutierrez MD 111 [facility], Level 5 [place] [phone] 09/10/2024 10:00 EDT Appointment Shaina Bergeron [address] [place], [place] [phone] documented as of this encounter Visit Diagnoses Not on filedocumented in this encounter Care Teams Glass Worker Relationship Specialty Start Date End Date Elissa Alejo PA-C [address] [facility] [address] [place] [address] MD [place] [phone] PCP - General 11/09/16 05/07/18 Laurie Wiggins MD [address] [facility] [address] [place] [phone] PCP - General 05/08/18 03/25/19 documented as of this encounter
--- OUTSIDE RECORDS SUMMARY | 2023-12-21 12:08 | XMS_ITS | Encounter Summary ---
Author Organization [facility] Address [address] [place] [address] Care Team Providers Care Compliance Testing Analyst Name Role Phone Kamala Rosado MD Primary Care Provider [phone] Encounter Details Date Type Department Care Team (Latest Contact Info) Description 02/17/2015 7:02 EST - 02/17/2015 23:59 EST Hospital Encounter [facility] - [address] [address] Unknown, Provider, Discharge Disposition: Home or Self Care Social [...] Yes 01/22/2014 documented as of this encounter Medications at [...] Code Departure Means Destination Home or Self [place] documented in this encounter Plan of Treatment Upcoming Encounters Date Type Department Care Team (Late st Contact Info) Description 01/23/2024 10:00 EDT Office Visit [facility] General Surgery - [address] [address] Bon Gutierrez MD [address] [facility], Level [address] [place] [phone] 09/10/2024 10:00 EDT Appointment Shaina Mejia 0 [place] [address] documented as of this encounter Visit Diagnoses Not on filedocumented in this encounter Care Teams Compliance Testing Analyst Relationship Specialty Start Date End Date Kamala Rosado MD [address] [address] PCP - General 10/05/13 10/19/15 documented as of this encounter
--- OUTSIDE RECORDS SUMMARY | 2023-12-21 12:08 | XMS_ITS | Encounter Summary ---
Author Organization [facility] Address [address] [place] [address] Care Team Providers Care Meat Scrubber Name Role Phone Kamala Rosado MD Primary Care Provider [phone] Reason for Visit * Reason Comments Follow-up tx completed Encounter Details Date Type Department Care Team (Late st Contact Info) Description 02/18/2015 13:00 EST Office Visit [facility] Gastroenterology - [address] [id number] Brody Duran MD PhD [address] [place] [address], [address] [place] [address] Hepatic cirrhosis due to chronic hepatitis C infection ([facility]) (Primary Dx) Social History Tobacco Use Types [...] Sign Reading Time Taken Comments Blood Pressure 126/64 02/18/2015 1259 EST Pulse 64 02/18/2015 1259 EST Temperature - - Respiratory Rate - - Oxygen Saturation - - Inhaled Oxygen Concentration - - Weight 102.1 kg (225 lb) 02/18/2015 1259 EST Height 162.6 cm (5' 4) 02/18/2015 1259 EST Body Mass Index 38.62 02/18/2015 1259 EST documented in this encounter Functional Status [...] as of this encounter Discharge Diagnoses Diagnosis B18.2 Chronic viral hepatitis C-B18.2[ICD-10-CM] documented in this encounter Progress Notes * Brody Duran MD - 02/18/20152045 EST [facility] GASTROENTEROLOGY AND HEPATOLOGY PROGRESS / FOLLOWUP NOTE - 02/18/2015 Kamala Rosado MD [address], [address] [place] [address] Rosado: This is to let you know that I have seen your patient Alonzo Urbina in the office today. 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 I spent 25 minutes with him, and over 20 minutes were devoted to a discussion of test results and implications for ongoing management. He completed a 24-week course of antiviral treatment with ledipasvir and sofosbuvir in October 2014. At all measured points during treatment, as well as 12 weeks after treatment completion, serum hepatitis C viral RNA was not detected. The patient feels entirely well. He underwent a surveillance Doppler ultrasound of the abdomen earlier today, which showed a patent TIPS shunt and no hepatic mass lesions. . The patient is on no medications currently. On physical examination, the patient was found an obese white man, weight 225 pounds (BMI 38.62). Blood pressure 126/64, pulse 64. The sclerae were clear. Laboratory data obtained in October 2014 show white blood cell count 3.56, hematocrit 40.3, platelets 99. INR 1.2. Bilirubin 1.9, alkaline phosphatase 99, ALT 31, AST 27, albumin 3.6, creatinine 0.78. The MELD score was 11 (range 6 to 40). In summary, Mr Urbina has cirrhosis secondary to chronic hepatitis C, with evidence of a sustainedvirological response to ledipasvir and sofosbuvir. The likelihood of a complete remission is at least 98%. The best way to monitor this is to arrange for yearly determination of serum hepatitis C viral RNA. If serum hepatitis C viral RNA becomes detectable in the future, please call me directly. The patient remains at risk for the development of hepatocellular carcinoma, and he will undergo surveillance Doppler ultrasound of the liver in August 2015 through the interventional radiology team here at [facility]. This should continue every 6 months. My only other recommendation is that you continue to monitor the patient every 6 months with a complete blood count, comprehensive metabolic panel, and prothrombin time. Thank you once again for allowing me to see this patient in consultation with you. Should you have any further questions regarding this evaluation, please feel free to contact me at any time. Sincerely, Brody Duran MD,PhD 01 52 PM - Brody uDran MD,PhD cn Dictation ID: [id number] cc: Guicho Rosales MD, [facility] - Radiology [address] [place] [address] Kamala Rosado MD, [address], [address], [place] [address] * Brody Duran MD - 02/18/2015 1353 EST This office note has been dictated. documented in this encounter Plan of Treatment Upcoming Encounters Date Type Department Care Team (Late st Contact Info) Description 01/23/2024 10:00 EDT Office Visit [facility] General Surgery - [facility] [address] [place], [place] [phone] Bon Gutierrez MD [address] [facility], [address] [place] [address] 09/10/2024 10:00 EDT Appointment Shaina Rubio [id number] [place] [address] documented as of this encounter Visit Diagnoses Diagnosis Hepatic cirrhosis due to chronic hepatitis C infection ([facility])- Primary documented in this encounter Discontinued Medications Medication Sig Discontinue Reason Start Date End Da te omeprazole (PRILOSEC) 20 mg capsule Take 20 mg by mouth daily as needed Patient Stopped Taking 02/18/2015 ibuprofen (MOTRIN) 200 mg tablet Take 400 mg by mouth every 8 hours as needed for Pain Patient Stopped Taking 02/18/2015 documented as of this encounter Care Teams Meat Scrubber Relationship Specialty Start Date End Date Kamala Rosado MD [address] [address] PCP - General 10/05/13 10/19/15 documented as of this encounter
--- OUTSIDE RECORDS SUMMARY | 2023-12-21 12:08 | XMS_ITS | Encounter Summary ---
Author Organization [facility] Address [address] [place] [address] Care Team Providers Care News Correspondent Name Role Phone Kamala Rosado MD Primary Care Provider [phone] Reason for Visit * Reason Onset Date Comments Appointment Related 02/13/2015 Encounter Details Date Type Department Care Team (Late st Contact Info) Description 02/13/2015 Telephone [facility] Interventional Radiology - [address] [address] Mayank [place] Appointment Related Social History Tobacco [...] * Telephone Encounter - Mayank Madrid - 02/13/2015 1206 EST Called to find out if he had labs drawn this week, and at which facility. 02/14/2015 13:57 Still no word and no answer from Alonzo. Voicemail is not set up, unable to leave message. documented in this encounter Plan of Treatment Upcoming Encounters Date Type Department Care Team (Late st Contact Info) Description 01/23/2024 10:00 EDT Office Visit [facility] General Surgery - [address] [phone] Bon Gutierrez MD [address] [facility], [address] [place] [phone] 09/10/2024 10:00 EDT Appointment Shaina Rubio [address] [place], [place] [address] documented as of this encounter Visit Diagnoses Not on filedocumented in this encounter Care Teams News Correspondent Relationship Specialty Start Date End Date Kamala Rosado MD [address] [address] PCP - General 10/05/13 10/19/15 documented as of this encounter
--- OUTSIDE RECORDS SUMMARY | 2023-12-21 12:08 | XMS_ITS | Encounter Summary ---
Author Organization [facility] Address [address] [place] [address] Care Team Providers Care Process Development Associate Name Role Phone Elissa Alejo PA-C Primary Care Provider [phone] Reason for Visit * Reason Onset Date Comments Appointment Related 12/26/2017 Cancel 12/27 US and OV Encounter Details Date Type Department Care Team (Late st Contact Info) Description 12/26/2017 Telephone [facility] Interventional Radiology - [address] [address] Guicho Rosales MD [address] [facility] [place] [address] Appointment Related (Cancel 12/27 US and OV) Social History Tobacco Use Types Packs/Day Years [...] * Telephone Encounter - Karrie Crespo - 12/26/2017 0846 EDT Patient left a voicemail message this morning cancelling his U/S at 12:30 and clinic visit for tomorrow 12/27/17 at 2:00. documented in this encounter Plan of Treatment Upcoming Encounters Date Type Department Care Team (Late st Contact Info) Description 01/23/2024 10:00 EDT Office Visit [facility] General Surgery - [address] [phone] Bon Gutierrez MD 111 [facility], [address] [place] [phone] 09/10/2024 10:00 EDT Appointment Shaina Bergeron [address] [phone] documented as of this encounter Visit Diagnoses Not on filedocumented in this encounter Care Teams Process Development Associate Relationship Specialty Start Date End Date Elissa Alejo PA-C [address] [place] [address] [place] [phone] PCP - General 11/09/16 05/07/18 documented as of this encounter
--- OUTSIDE RECORDS SUMMARY | 2023-12-21 12:08 | XMS_ITS | Encounter Summary ---
Author Organization [facility] Address [address] [place] [address] Care Team Providers Care Passenger Brakeman Name Role Phone Laurie Manzo MD Primary Care Provider [phone] Reason for Referral * Follow Up (Routine) - Receiving Office to Obtain Authorization Specialty Diagnoses / Procedures Referred By Contreinaldo t Referred To Contact Diagnoses Duodenal ulcer with hemorrhage Janie Sanabria MD [address] [place] [address] [address] PICKARD [address] [place] [id number] Referral ID Status Reason Start Date Expiration Date Visits Requested Visits Authorized [id number] Receiving Office to Obtain Authorization Continuity of Care 9 1 1 Question Answer Reason for Request: Hospital follow up Expected Discharge Date (Inpatient Only): 06/30/2018 Encounter Details Date Type Department Care Team (Late st Contact Info) Description 06/24/2018 15:44 EDT - 07/02/2018 13:41 EDT Hospital Encounter [facility] Neurosurgery Unit [address] [place] [address] Radha Gamboa MD [address] [id number] Haile Zuniga MD [address] [id number] Catia Elizondo MD [address] [phone] Tl Hylton DO [address] [phone] Hepatic cirrhosis, unspecified hepatic cirrhosis type, unspecified whether ascites present (HCC-CMS) (Primary Dx); Gastrointestinal hemorrhage with melena; Acute blood loss anemia; Duodenal ulcer with hemorrhage Discharge Disposition: Home or Self Care Social [...] Sign Reading Time Taken Comments Blood Pressure 109/55 07/02/2018 0620 EDT Pulse 72 07/01/2018 1359 EDT Temperature 36.8 ??C (98.2 ??F) 07/02/2018 0620 EDT Respiratory Rate 20 07/02/2018 0620 EDT Oxygen Saturation 97% 07/02/2018 0620 EDT Inhaled Oxygen Concentration - - Weight 87.9 kg (193 lb 12.6 oz) 06/24/2018 1436 EDT Height 171 cm (5' 7.32) 06/24/2018 1436 EDT Body Mass Index 30.06 06/24/2018 1436 EDT documented in this encounter Functional Status [...] as of this encounter Discharge Diagnoses Diagnosis K26.4 Chronic or unspecified duodenal ulcer with hemorrhage-K26.4[ICD-10-CM] D62 Acute posthemorrhagic anemia-D62[ICD-10-CM] 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-D68.4[ICD-10-CM] K72.90 Hepatic failure, unspecified without coma-K72.90[ICD-10-CM] I85.10 Secondary esophageal varices without bleeding-I85.10[ICD-10-CM] B18.2 Chronic viral hepatitis C-B18.2[ICD-10-CM] D69.59 Other secondary thrombocytopenia-D69.59[ICD-10-CM] Z53.8 Procedure and treatment not carried out for other reasons-Z53.8[ICD-10-CM] I95.89 Other hypotension-I95.89[ICD-10-CM] F32.9 Major depressive disorder, single episode, unspecified-F32.9[ICD-10-CM] G89.29 Other chronic pain-G89.29[ICD-10-CM] Z66 Do not resuscitate-Z66[ICD-10-CM] documented in this encounter Discharge Summaries * Janie Sanabria MD - 07/02/2018 1341 EDT Medicine Discharge Summary Primary Care Provider: Laurie Manzo Attending Physician: Tl Hylton DO Admit Date: 06/24/2018 Discharge Date: 07/02/18 Disposition: Home or self care Reason for Admission: Melena Principal/Final Diagnosis: Duodenal ulcer with hemorrhage Additional Problems Managed in the Hospital Active Hospital Problems Diagnosis Date Noted ??? Cirrhosis of liver (HCC-CMS) 03/14/2013 Resolved Hospital Problems Diagnosis Date Noted Date Resolved ??? *Duodenal ulcer with hemorrhage 07/02/2018 07/02/2018 ??? Acute blood loss anemia 06/18/2013 07/02/2018 Principal Procedure: Gastroduodenal Artery Embolization 06/30/18 Celiac angiogram showing no evidence of pseudoaneurysm or active extravasation. Successful prophylactic GDA transcatheter microcoil and gelfoam embolization. Secondary Procedures: EGD 06/26/18 Esophagus - normal Stomach - normal. Cold [...] the ulcer and the procedure was terminated. Hospital Course: Alma Carballo is a 63 y.o. male with decompensated cirrhosis complicated by esophageal varices s/p banding and emergent TIPS (2013), treated hepatitis C, and pancreatitis who presented to [facility] for melena and lightheadedness. His hemoglobin had dropped to 8 from 14. He had aCT angiogram that did not show areas of active bleeding. He was transfused with 2 units of PRBC, but due to his prior transfusions, he was difficult to match and had to be transferred to [facility]. On arrival, GI was consulted and he received 3 units of blood and was started on fluids, ceftriaxone, octreotide, and pantoprazole. On 06/26, he underwent EGD that showed an ulcer in the duodenal sweep with some active bleeding. It was injected with epinephrine, but endoclips were unsuccessful due to the size of the ulcer and the angle at which the ulcer was located. As it was not a variceal bleed, the octreotide was discontinued and he completed a 7 day course of ceftriaxone. Unfortunately, he continued to have low volume melena for several days, though his hemoglobin remained stable. Eventually IR was consulted who performed a gastroduodenal artery embolization on 06/30. He tolerated the pro cedure well and did not have any further melena or drops in hemoglobin. He was stable for dischargehome on 07/02. Condition at Discharge: Good Clinical Issues Needing Follow-up: - Pantoprazole 40g BID for 2 months, then daily afterwards - Patient should have a CMP, CBC, and INR every 6 months to calculate a MELD - RUQ US with Doppler every 6 months to screen for hepatocellular carcinoma and to monitor for TIPSstenosis - Patient does not need hepatology referral at discharged. Patient should be referred to hepatologyfrom the outpatient setting if he develops diuretic refractory ascites, a new hepatic lesion, or ifhis MELD is >15 Allergies Allergen Reactions ??? Ambien [Zolpidem] Sleep-driving Immunization History Administered Date(s) Administered ??? Influenza (whole) 11/09/2014 ??? Influenza Vaccine Quad (FLUZONE) PF 0.5 ml IM (3 yrs+) 01/09/2014 ? ? Pneumococcal Polysaccharide (PPSV23) Vaccine (PNEUMOVAX-23) =>2YO SQ/IM 01/11/2014 Results Pending at Discharge Test results still pending from this admission None Upcoming Appointments Jul 18, 2018 10:15 EDT Established Patient Visit with Guicho Rosales MD [facility] Interventional Radiology - [facility] (--) [address] [place] [address], [address] [facility] [address] Follow-up appointments and procedures Amb Consult/Follow Up Primary Care Physician Reason for Request: Hospital follow up Expected Discharge Date (Inpatient Only): 06/30/2018 Authorizing Provider: Janie Sanabria MD Follow-up labs and tests Complete Blood Count Complete by: Jul 16, 2018 (Approximate) Authorizing Provider: Janie Sanabria MD Discharge Handoff Communication Contact was not made at the time of discharge - Weekend Discharge Summary Completed By: Janie Sanabria MD Internal Medicine PGY1 Associated attestation - Tl Hylton DO - 07/18/2018 0037 EDT ATTENDING ATTESTATION: Date of service: 07/02/2018 I interviewed and examined the patient, reviewed pertinent labs, events, and notes as well as answered questions related to discharge. I agree with the findings and plan of care as documented above, with additions in blue. I personally spent <30 minutes counseling and preparing the patient for discharge and coordinating outpatient follow-up. Tl Hylton DO [facility] Inpatient Service 07/18/2018 16:57 documented in this encounter Discharge Instructions * Discharge Instructions* Karrie Camacho RN - 06/30/2018 13:05 EDT RADIOLOGY PATIENT EDUCATION INSTRUCTIONS FOLLOWING AN ANGIOGRAM OF THE ABDOMEN Procedure Wound Site - right Femoral Dr. Karel Castro MD and Hadley Sow MD has completed an angiogram of your Abdomen. 1. Please drink extra fluids today (6-8 glasses). This will encourage the excretion of the contrastdye material. 2. Do not drive or make any legal decisions today as you have received medications. 3. If you feel a tingling sensation or lack of feeling in the affected extremity, call your local doctor. 4. If you note any signs of bleeding, such as bulging under the skin the size of a golf ball, put direct pressure to the area, call your doctor, and go to the nearest emergency room or call 911 for assistance. 5. You may resume all of your normal dietary and medication requirements. 6. Leave the sterile dressing on for 24 hours, then shower and clean the area daily. Place a clean Band-Aid over the site each day for 5 days. 7. Do not take a tub bath, go in a hot tub or submerge in water for 5 days. 8. Do not put lotions or powder on the area for 5 days. 9. Report any signs of infection (redness, swelling, discharge and fever) to your doctor. 10. No lifting > 20 lbs. or heavy exertion for 5 days after procedure. The results of your Angiogram will be sent directly to your physician within 3 working days. IF YOU HAVE ANY QUESTIONS OR CONCERNS REGARDING THE PROCEDURE, PLEASE CALL THE INTERVENTIONAL RADIOLOGY CLINIC AT . SOMEONE IS AVAILABLE TO TAKE YOUR CALL 24 HOURS A DAY. * Discharge Instr - AVS First Page* Janie Sanabria MD - 07/02/2018 13:05 EDT - Pantoprazole 40mg twice a day for 2 months, then once a day - Avoid all NSAIDs (Ibuprofen, aspirin, advil, etc). - Get your blood drawn in 2 weeks documented in this encounter Medications at Time of Discharge Medication Sig Dispensed Refills Start Date End Date LACTULOSE ORAL Take by mouth. 09/12/2018 pantoprazole (PROTONIX) 40 mg tablet Take 1 tablet by mouth 2 times daily. 120 tablet 07/02/2018 09/12/2018 documented as of this encounter Ordered Prescriptions Prescription Sig Dispensed Refills Start Date End Da te pantoprazole (PROTONIX) 40 mg tablet Take 1 tablet by mouth 2 times daily. 120 tablet 07/02/2018 09/12/2018 documented in this encounter Discharge Disposition Disposition Code Departure Means Destination Home or Self Care documented in this encounter Progress Notes * Tianna Robb MD - 07/01/2018 0720 EDT Medicine Progress Note Service Date: 07/01/2018 Admit Date: 06/24/2018 15:44 Reason for Admission: 63 y.o. male admitted with a chief complaint of melena and now with a principal diagnosis of upper gi bleed. 24 Hour Events: - No episodes of melena overnight, hgb stable Subjective/Objective Subjective Mr. Carballo was happy to report that he had a brown bowel movement this morning without black or blood. He feels well and continues to have no abdominal pain. His lightheadedness has improved. Deniesany nausea, vomiting, fevers, chills. Some soreness at catheter insertion site. No hematoma or hard collection Review of Systems Pertinent items are noted in Subjective/HPI Objective Vital Signs Temp: [37 ??C (98.6 ??F)-37.7 ??C (99.9 ??F)] (), Heart Rate: [59 BPM-69 BPM] (), Resp: [9-18] (), BP: (95-132)/(47-65) (), SpO2: [90 %-100 %] () Physical Exam Gen: Well nourished male in no acute distress, conversing appropriately Pulm: Good air movement, clear to auscultation bilaterally, no rhonchi, rales or wheezes CV: Regular rate and rhythm, no murmurs, rubs, or gallops Abd: Non-distended. Positive bowel sounds. Soft, non-tender. No peritoneal signs : No alexander in place Ext: No lower extremity edema warm and well perfused Skin: Pale, no rashes. Right femoral catheter site with small bruise, no hematoma or hard collection under the skin. Neuro: Alert and oriented x4. Face symmetrical, no dysarthria, moving all extremities, sensation grossly intact. Psych: Normal affect and behavior, good mood Is PICC or central line present? No, PICC/Central line not present. Labs Reviewed. Hgb 7.6 (stable) and platelets 114 (stable), otherwise unremarkable Micro None Imaging No new. EGD 06/26/2018 Esophagus - normal Stomach - normal. Cold [...] the ulcer and the procedure was terminated. Assessment/Plan Assessment Alma Carballo is a 63 y.o. male with decompensated cirrhosis complicated by esophageal varices s/p banding and emergent TIPS (2013), treated hepatitis C, pancreatitis who was transferred from [facility] for melena requiring blood transfusions and further management. Herequired several units of blood and was started on ceftriaxone. EGD 06/26 with duodenal ulcer that was not able to be clipped and was at a very high risk of rebleeding. CTA Abd 06/29 was w/o active extravasation. IR performed embolization of GDA 06/30. Brown stool this morning and stable hemoglobin. Will plan for discharge home tomorrow. Plan Bleeding duodenal ulcer with melena EGD on 06/26, injected with epi, but endoclipping was unsuccessful. 06/30 underwent embolization of GDA w/ IR. Now with brown stool. S/p 7 day course of ceftriaxone. - daily CBC or sooner if significant melena - GI and IR consulted - Full diet - pantoprazole 40mg BID - Zofran PRN - Acetaminophen PRN Decompensated cirrhosis secondary to Hep C from transfusion with esophageal varices, intermittent encephalopathy, thrombocytopenia and coagulopathy S/p harvoni treatment in 2011, viral load undetectable. S/p TIPS. Doppler with patent TIPS. - Resume [employer] lactulose (was on rifaximin while actively having melena) - Resume nadolol 40mg daily - will need q6 month RUQ US, CBC, CMP, INR Chronic medications - [employer] buproprion - Hold [employer] lisonpril, can resume on discharge as BP allows VTE Prophylaxis: Holding in setting of GI bleed Discharge Plan: Home tomorrow, will need letter for work and a taxi ride home Consults: GI and IR consulted Janie Sanabria MD Internal Medicine PGY-1 ATTENDING ATTESTATION Date of service: 07/01/2018 I interviewed and examined the patient on 07/01/2018 . I have personally reviewed laboratory data and interim records. The case was discussed with Dr. Sanabria (medicine house staff). I agree with findings and plan of care as documented by the resident. Please see my additions/changes in blue. Tianna Robb MD Internal Medicine Hospitalist 07/01/2018 21:46 * Catia Elizondo MD, MD - 06/30/2018 1731 EDT Medicine Progress Note Service Date: 06/30/2018 Admit Date: 06/24/2018 15:44 Reason for Admission: 63 y.o. male admitted with a chief complaint of melena and now with a principal diagnosis of upper gi bleed. 24 Hour Events: - Hgb stable overnight but continues to have low volume melena - had IR embolization of GDA today Subjective/Objective Subjective Pt feeling well this AM but voices frustration over ongoing hospitalization and no-one doing anything. Happy to hear scheduled for IR embolization today. NPO for procedure, but reports eating solids yesterday w/o N. No pain or dizziness. Was walking in halls yesterday. Review of Systems Pertinent items are noted in Subjective/HPI Objective Vital Signs Temp: [36.8 ??C (98.2 ??F)-37.3 ??C (99.1 ??F)] (), Heart Rate: [59 BPM-66 BPM] (), Resp: [9-22] (), BP: (95-137)/(47-65) (), SpO2: [90 %-100 %] () Physical Exam Gen: Pale well nourished male in no acute distress, conversing appropriately Pulm: Good air movement, clear to auscultation bilaterally, no rhonchi, rales or wheezes CV: Regular rate and rhythm, no murmurs, rubs, or gallops Abd: Non-distended. Positive bowel sounds. Soft, non-tender. No peritoneal signs : No alexander in place Ext: No lower extremity edema warm and well perfused Skin: Pale, no rashes. Neuro: Alert and oriented x4. Face symmetrical, no dysarthria, moving all extremities, sensation grossly intact. Psych: Normal affect and behavior, good mood Is PICC or central line present? No, PICC/Central line not present. Labs Reviewed. Hgb 7.8 (stable), otherwise unremarkable Plt 104 (stable) Micro None Imaging No new. EGD 06/26/2018 Esophagus - normal Stomach - normal. Cold [...] the ulcer and the procedure was terminated. Assessment/Plan Assessment Alma Carballo is a 63 y.o. male with decompensated cirrhosis complicated by esophageal varices s/p banding and emergent TIPS (2013), treated hepatitis C, pancreatitis who was transferred from [facility] for melena requiring blood transfusions and further management. Herequired several units of blood and was started on ceftriaxone. EGD 06/26 with duodenal ulcer that was not able to be clipped and remains at a very high risk of rebleeding. CTA Abd 06/29 was w/o activeextravasation. IR performed embolization of GDA today (06/30). Will continue to monitor for ongoing bleeding. Plan Bleeding duodenal ulcer with melena EGD on 06/26, injected with epi, but endoclipping was unsuccessful. 06/30 underwent embolization of GDA w/ IR. - daily CBC or sooner if significant melena - GI and IR consulted - Full diet - s/p Ceftriaxone 1g daily for 7 days 06/24- - pantoprazole 40mg BID - Zofran PRN - Acetaminophen PRN - oxycodone to 2.5mg [id number], wean as able Decompensated cirrhosis secondary to Hep C from transfusion with esophageal varices, intermittent encephalopathy, thrombocytopenia and coagulopathy S/p harvoni treatment in 2011. S/p TIPS. Doppler with patent TIPS. - Plan to resume [employer] lactulose prior to discharge, rifaximin while actively having melena - Hold nadolol for now given bleeding - Follow up quant Hep C - undetected - will need q6 month RUQ US, CBC, CMP, INR Chronic medications - [employer] buproprion - Hold [employer] lisonpril VTE Prophylaxis: Holding in setting of GI bleed Discharge Plan: Likely home in coming days pending course and ongoing bleeding Consults: GI and IR consulted Zac Whitaker MD Internal Medicine PGY-2 Pager: [phone] Attending Attestation I interviewed and examined the patient and personally reviewed laboratory studies, radiographic studies, and medical records. I discussed the case with the Medicine residents and agree with history, exam, assessment and plan of care as documented in the note above (with edits in Green). Ongoing melena. S/p GDA embolization for large duodenal ulcer that has resulted in recurrent bleeds. Plan to monitor overnight with likely d/c home in next 24-48 hours. Date of Service: 06/30/2018 Catia Elizondo MD Internal Medicine Hospitalist * Karrie Camacho RN - 06/30/2018 1251 EDT Interventional Radiology Procedure Nursing Note Report received from [facility] patient has received Versed 2.5 mg and Fentanyl 75 mcg. Positioned supine on the table. ?? Intraprocedure: Patient vital signs stable. Lightly sleeping. Fluoro used for procedure. Coiling ofGDA and gel foam embolization complete. ?? Post-procedure: Patient tolerated procedure well. Post Procedure Assessment: Patient spontaneously woke up and asked are we done? Did you find anything? Vital signs stable. CSMT and pulses + Procedure site: No bleeding or hematoma after pressure held at end of procedure. Dressing applied thrombex patch, gauze tegaderm and tensoplast. Knee brace put in place around right leg. Pain: level of 7/10 dull pain in right groin. Sedation totals: Midazolam 2.5 mg and Fentanyl 75 mcg administered to achieve moderate sedation. Discharge from room: Report was called to Lukas BOONE. Discharge instructions in PRISM, to be reviewed by discharge nurse. Follow up plan: As per clinical team. Flat HOB and no bending right leg until 1700 and remove outer tensoplast light brown dressing at 1500. * Richy Saldana RN - 06/30/2018 1230 EDT Pt received from [facility] to angio suite 24 at 1145. Pt in agreement with plan for Mesenteric angiogram with possible Embolization with consious sedation. Patient name and verified using armband and verbally. Patient???s allergies, medications, labs and NPO status reviewed. IV site checked for patency. Pt educated on what to expect during the procedure as well as with IV sedation and verbalizes understanding. Pt positioned supine, with safety straps in place, extremities supported, and heels elevated for duration of procedure. Sterile prep of bilateral grions with 2% Chloro prep by TJP in the usual sterile fashion in compliance with manufacturers recommendation. [address] moment agreed upon by all staff in room prior to start of Mesenteric Angiogram with possible embolization procedure by ANC, TJP, SDP and ADB as overseeing attending. Right femoral artery access achieved. Diagnostic imaging completed. Embolization of the Gastroduodenal Artery occurred with coils and gelfoam slurry. Repot given to Karrie BOONE at 1248 * Catia Elizondo MD, MD - 06/29/2018 0812 EDT Medicine Progress Note Service Date: 06/29/2018 Admit Date: 06/24/2018 15:44 Reason for Admission: 63 y.o. male admitted with a chief complaint of melena and now with a principal diagnosis of upper gi bleed. 24 Hour Events: - Hgb stable overnight, no transfusions, continues to have melena Subjective/Objective Subjective Continues to have small amounts of melena (black clots sitting in the bottom of the bowl that turnsthe water pink), at least 4 episodes this morning. He denies any abdominal pain, nausea, fatigue, vomitting. He is still lightheaded when he stands and has low energy. His throat is getting better this morning and he did not use oxycodone throughout the day. He denies any chest pain, shortness of breath, fevers, chills, hematuria. He is continues to be very concerned that we are just letting him bleed despite reassurances. Review of Systems Pertinent items are noted in Subjective/HPI Objective Vital Signs Temp: [37 ??C (98.6 ??F)-37.4 ??C (99.3 ??F)] (), Heart Rate: [54 BPM-66 BPM] (), Resp: [16-18] (),BP: (103-114)/(50-54) (), SpO2: [95 %-98 %] () Physical Exam Gen: Pale well nourished male in no acute distress, conversing appropriately Pulm: Good air movement, clear to auscultation bilaterally, no rhonchi, rales or wheezes CV: Regular rate and rhythm, no murmurs, rubs, or gallops Abd: Non-distended. Positive bowel sounds. Soft, non-tender. No peritoneal signs : No alexander in place Ext: No lower extremity edema warm and well perfused Skin: Pale, no rashes. Neuro: Alert and oriented x4. Face symmetrical, no dysarthria, moving all extremities, sensation grossly intact. Psych: Normal affect and behavior, good mood Is PICC or central line present? No, PICC/Central line not present. Labs Hgb 7.7 (stable), otherwise unremarkable Micro None Imaging EGD 06/26/2018 Esophagus - normal Stomach - normal. Cold [...] the ulcer and the procedure was terminated. Assessment/Plan Assessment Alma Carballo is a 63 y.o. male with decompensated cirrhosis complicated by esophageal varices s/p banding and emergent TIPS (2013), treated hepatitis C, pancreatitis who was transferred from [facility] for melena requiring blood transfusions and further management. Herequired several units of blood and was started on ceftriaxone. EGD 06/26 with duodenal ulcer that was not able to be clipped and remains at a very high risk of rebleeding. Discussed his case with IR today as he continues to ooze (4 days of persistent melena after EGD), though remains hemodynamically stable with hemoglobins in the 7s. They recommended obtaining CTA to ensure this is an arterial bleed rather than venous and making him NPO at midnight for possible IR embolization. Plan Bleeding duodenal ulcer with melena EGD on 06/26, injected with epi, but endoclipping was unsuccessful. Remains high risk for rebleeding. Discussed case with IR as above. - GI and IR consulted - CTA abdomen and pelvis - Possible IR embolization tomorrow if CTA shows arterial bleed - Full diet, though NPO at midnight for possible procedure - Maintain 2 large bore IV - Ceftriaxone 1g daily for 7 days 06/24- - IV pantoprazole 40mg BID - Zofran PRN - Acetaminophen PRN - Reduce oxycodone to 2.5mg q3uprxi for throat pain after EGD Decompensated cirrhosis secondary to Hep C from transfusion with esophageal varices, intermittent encephalopathy, thrombocytopenia and coagulopathy S/p harvoni treatment in 2011. S/p TIPS. Doppler with patent TIPS. - Switch lactulose for rifaximin while actively having melena - Hold nadolol for now given bleeding - Follow up quant Hep C - will need q6 month RUQ US, CBC, CMP, INR Chronic medications - [employer] buproprion - Hold [employer] lisonpril VTE Prophylaxis: Holding in setting of GI bleed Discharge Plan: Uncertain at this time, will have PT evaluate. Timing depends on potential procedure tomorrow Consults: GI and IT consulted Janie Sanabria MD Internal Medicine PGY-1 8:12 06/29/18 Attending Attestation I interviewed and examined the patient and personally reviewed laboratory studies, radiographic studies, and medical records. I discussed the case with the Medicine residents and agree with history, exam, assessment and plan of care as documented in the note above (with edits in Green). Catia Elizondo MD Internal Medicine Hospitalist * Patito Gutierrez - 06/28/2018 1641 EDT Spiritual Care Note Re: Alma Carballo : 1955, AGE: 63 y.o. Room: [place] [address] Alma Carballo who is listed as Hoahaoism has received a visit from the Spiritual Care Departmenton 06/28/2018. Need/Assessment: ?? Patient shared his recent medical journey, which had brought him to [facility] from [facility], involving a serious GI bleed and need to receive several blood transfusions. ?? Patient describes himself as being alone. He recently moved to [facility] [place] his own. Patient says close family members have all and that he is on his own. Patient expresses thathe had not had time to make connections or community in his new town prior to this medical event - he's only moved in 2 weeks before. ?? Patient reports looking forward to connecting with a mormonism in his new community (it's better than meeting people in a bar). Patient grew up Mennonite, but no longer identifies with that william (you have to work for your salvation, which patient does not affirm), and seeks an independent Zoroastrianism mormonism. Patient declined rn gynecology's offer of prayer. ?? Patient [place] mila in [place], [place] Intervention: ?? Field Artillery Operations Man offered compassionate presence and reflective listening. ?? Field Artillery Operations Man explored patient's spiritual background and sources of support and mila. Outcome: ?? Patient expressed appreciation for visit; no need for follow-up visit before expected discharge.(Field Artillery Operations Man left brochure should patient want to contact [facility]). Plan of Action: X No Follow up necessary - Needs met Continued Family Support Continued Support from Field Artillery Operations Man following patient Make a Referral to: Continued Support with Volunteer Visits Connect with Community Supports Ask for a consult from: Other: Visit Initiated by: Referral Time: End of Life / Comfort Care / Hospice Urgent Request - Time: 4 Level of Visit Services Provided: Anointing of Sick Prayer Communion Relaxation through music Assist Advanced Directives Integrative therapies Assist Decision Making Dudley and Prayer at dying Exploration of Ethical issues Present at time of Family Support X Other: Compassionate presence Chaplain Jc Stanford 131 Phone [phone] Spiritual Care is available 24 hours a day. Chaplains are available 24 hours a day. For routine consults please call and leave a message with the Spiritual Care Office ([phone]) and patients will be seen within 24 hours. For all emergent consults page the Congregation or Interfaith on-call Field Artillery Operations Man through PAS ([phone]). * Ming Cottrell MD, MD - 06/28/2018 1534 EDT GI CONSULT FOLLOW UP NOTE Author: Ming Cottrell MD Attending Physician: Catia Elizondo MD Identifying Statement: 63 y.o.male with a history of decompensated cirrhosis secondary to chronic hepatitis C (treated with ledipasvir/sofosbuvir with SVR in 2013) complicated by esophageal varices and chronic bleeding secondary to portal hypertensive gastropathy warranting TIPS procedure in 2013, also with hepatic encephalopathy, who was admitted with melena due to a duodenal sweep ulcer that was oozing. Ulcer was injected, but attempts at clipping were unsuccessful due to the size of the ulcer 24hr Events/Subjective: - Hb 7.9 -> 7.6 -Two bowel movements overnight. Patient states they were small volume and black -No nausea, vomiting, abdominal pain -Gastric biopsies for H. Pylori negative Objective: Last Vitals: BP 109/52 (BP Cuff Location: Right arm, Patient Position: Semi fowlers) Pulse 53 Temp 37.1 ??C (98.8 ??F) (Tympanic) Resp 16 Ht 171 cm (67.32) Wt 87.9 kg (193 lb 12.6 oz) SpO2 97% BMI 30.06 kg/m?? Vitals: 06/28/18 0104 06/28/18 0520 06/28/18 1026 06/28/18 1407 BP: 101/51 108/68 114/53 109/52 BP Cuff Location: Left arm Left arm Left arm Right arm Patient Position: Semi fowlers Sitting Sitting Semi fowlers Pulse: Resp: 16 16 18 16 Temp: 37.3 ??C (99.1 ??F) 36.9 ??C (98.4 ??F) 37 ??C (98.6 ??F) 37.1 ??C (98.8 ??F) TempSrc: Tympanic Tympanic Tympanic Tympanic SpO2: 94% 96% 95% 97% Weight: Height: Gen: NAD. AAOx3 Skin: Warm. Dry. No rashes or lesions HEENT: Anicteric Sclera. Pulm: CTAB. No wheezing, rales, or rhonchi Card: RRR. S1, S2 normal. No murmurs, rubs, or gallops Abd: Soft. Non-distended. Non-tender. Normoactive bowel sounds Ext: No edema Neuro: Spontaneously moving bilateral upper and lower extremities without focal deficits Labs/Imaging/Procedures: See 24 hour events ASSESSMENT: Alma Carballo is a 63 y.o. male with a history of decompensated cirrhosis secondary to chronic hepatitis C (treated with ledipasvir/sofosbuvir with SVR in 2013) complicated by esophageal varices and chronic bleeding secondary to portal hypertensive gastropathy warranting TIPS procedure in 2013, also with hepatic encephalopathy, who was admitted with melena due to a duodenal sweep ulcer that wasoozing. The ulcer was injected with epinephrine, but attempts at clipping were unsuccessful due to the size of the ulcer. Patient has not had substantial recurrent bleeding and has a stable hemoglobin. RECOMMENDATIONS: -Continue PPI BID for 2 months followed by once daily -IR embolization if recurrent bleeding -Complete a total of 7 days of antibioitcs -f/u HepC quantification -Patient should have a CMP, CBC, and INR every 6 months to calculate a MELD -RUQ US with Doppler every 6 months to screen for hepatocellular carcinoma and to monitor for TIPS stenosis -Patient does not need hepatology referral at discharged. Patient should be referred to hepatology from the outpatient setting if he develops diuretic refractory ascites, a new hepatic lesion, or if his MELD is >15 My Assessment and Plan were discussed with my Attending, Dr. Murrell who agrees with the above. Ming Cottrell MD GI and Hepatology Fellow Pager [phone] * Minda Neumann RD - 06/28/2018 0914 EDT Brief Nutrition Contact Note: Patient is day #5 of minimal nutrition (has been NPO/clear liquids only since admission with one week of decreased PO intake PROTECTIVE SERVICES SOCIAL WORKER), fluid intake has been minimal per review of I/Os and patient with complaints of sore throat since EGD. He is at increased risk for electrolyte and micronutrient abnormalities in the setting of decompensated cirrhosis. If unable to advance diet past clear liquids in the next 24 hours would consider nutrition support if c/w goals of care. Please consult RD for formal nutrition support recommendations as needed. RD will continue to follow patient t/o hospital course. Minda Neumann, , RD, CD Pager #[phone] * Catia Elizondo MD, MD - 06/28/2018 0711 EDT Medicine Progress Note Service Date: 06/28/2018 Admit Date: 06/24/2018 15:44 Reason for Admission: 63 y.o. male admitted with a chief complaint of melena and now with a principal diagnosis of upper gi bleed. 24 Hour Events: - Hgb stable overnight, no transfusions Subjective/Objective Subjective Continues to have small amounts of melena- black clots sitting in the bottom of the bowl that turnsthe water pink. Total of 3 episodes today. He denies any abdominal pain, nausea, fatigue, vomitting. He is still lightheaded when he stands. His throat is getting better this morning, though he is on pretty regular oxycodone. His lower back pain is also better. He denies any chest pain, shortness of breath, fevers, chills, hematuria. He is very frustrated this morning about his risk of rebleeding as he has bleed 5 times in the lastyear presumably from the same spot. If you aren't going to do anything, I might as well go home now. Discussed why he is not a candidate for the IR procedure at this point, but he was still frustrated and worried about going home alone. He is worried that no one would find him if anything happened. Review of Systems Pertinent items are noted in Subjective/HPI Objective Vital Signs Temp: [36.8 ??C (98.2 ??F)-37.6 ??C (99.7 ??F)] (), Heart Rate: [54 BPM-65 BPM] (), Resp: [16] (), BP: (101-114)/(51-68) (), SpO2: [91 %-97 %] () Physical Exam Gen: Pale well nourished male in no acute distress, conversing appropriately Pulm: Good air movement, clear to auscultation bilaterally, no rhonchi, rales or wheezes CV: Regular rate and rhythm, no murmurs, rubs, or gallops Abd: Non-distended. Positive bowel sounds. Soft, non-tender. No peritoneal signs : No alexander in place Ext: No lower extremity edema warm and well perfused Skin: Pale, no rashes. Neuro: Alert and oriented x4. Face symmetrical, no dysarthria, moving all extremities, sensation grossly intact. Psych: Normal affect and behavior, good mood Is PICC or central line present? No, PICC/Central line not present. Labs Hgb 7.6, otherwise unremarkable Micro None Imaging EGD 06/26/2018 Esophagus - normal Stomach - normal. Cold [...] the ulcer and the procedure was terminated. Assessment/Plan Assessment Alma Carballo is a 63 y.o. male with decompensated cirrhosis complicated by esophageal varices s/p banding and emergent TIPS (2013), treated hepatitis C, pancreatitis who was transferred from [facility] for melena requiring blood transfusions and further management. Herequired several units of blood and was started on ceftriaxone. EGD 06/26 with duodenal ulcer that was not able to be clipped and remains at a very high risk of rebleeding. Discussed his case with IR who would not recommend embolization unless needed urgently for rebleeding or if he persistently oozes for 3-4 days. Hemoglobin stable overnight, but still have small amounts of melena. Will continue to monitor and advance diet. Plan Bleeding duodenal ulcer with melena EGD on 06/26, injected with epi, but endoclipping was unsuccessful. Remains high risk for rebleeding. Discussed case with IR who would not recommend embolization unless needed urgently for rebleeding or if he persistently oozes for 3-4 days. - GI consulted - Maintain 2 large bore IV - Full liquids - Ceftriaxone 1g daily for 7 days 06/24- - IV pantoprazole 40mg BID - Zofran PRN - Acetaminophen PRN - Oxycodone 5mg [id number] for throat pain after EGD, will reduce to 2.5mg after speaking with patient - Call IR for embolization if HD unstable overnight Decompensated cirrhosis secondary to Hep C from transfusion with esophageal varices, intermittent encephalopathy, thrombocytopenia and coagulopathy S/p harvoni treatment in 2011. S/p TIPS. Doppler with patent TIPS. - Switch lactulose for rifaximin while actively having melena - Hold nadolol for now given bleeding - Follow up quant Hep C - will need q6 month RUQ US, CBC, CMP, INR Chronic medications - PROTECTIVE SERVICES SOCIAL WORKER buproprion - Hold PROTECTIVE SERVICES SOCIAL WORKER lisonpril VTE Prophylaxis: Holding in setting of GI bleed Discharge Plan: Uncertain at this time, will have PT evaluate. Patient very nervous about going home alone. Likely next 24-48 hours if no further bleed. Consults: GI consulted. IR aware Janie Sanabria MD Internal Medicine PGY-1 7:11 06/28/18 Attending Attestation I interviewed and examined the patient and personally reviewed laboratory studies, radiographic studies, and medical records. I discussed the case with the Medicine residents and agree with history, exam, assessment and plan of care as documented in the note above (with edits in Green). Date of Service: 06/28/2018 Catia Elizondo MD Internal Medicine Hospitalist * Ming Cottrell MD, MD - 06/27/2018 1949 EDT Brief GI Progress Note Patient without overt bleeding overnight despite intervening on duodenal ulcer with active oozing with epinephrine injection alone (failed attempt at clipping). MELD score on admission ~15 (had been ~11 four years prior) without a clear recycle driver for ongoing hepatic injury. A small subset of individuals treated for HepC with the regimen he had been treated with have treatment failure. We do not haverecords of annual HepC quantification that had been recommended at his prior visit and recurrent HepC could account for his worsened MELD. Recommendations: -Continue PPI BID -If rebleeding, would consult IR (they are aware of case) -Please check a HepC quantification Discussed with Dr. Renee Cottrell MD Gastroenterology and Hepatology Fellow * Catia Elizondo MD, MD - 06/27/2018 0748 EDT Medicine Progress Note Service Date: 06/27/2018 Admit Date: 06/24/2018 15:44 Reason for Admission: 63 y.o. male admitted with a chief complaint of melena and now with a principal diagnosis of upper gi bleed. 24 Hour Events: - Transfused one unit overnight - Continues to have throat pain Subjective/Objective Subjective One episode of melena this morning (first in 24 hours, which is slowing down for him). It was smallvolume, though he hasn't been eating. He denies any abdominal pain. His biggest pain is in his throat since his EGD. He says he remembers fighting it when they tried to start the procedure so he isn't surprised. He is able to swallow, but it feels sore. He denies nausea. He is a little less fatigued. He still feels a little lightheaded when he stands. His lower back pain continues. He has not had any vomiting. He denies any chest pain, shortness of breath, fevers, chills, hematuria. Review of Systems Pertinent items are noted in Subjective/HPI Objective Vital Signs Temp: [36.5 ??C (97.7 ??F)-37.3 ??C (99.1 ??F)] (), Heart Rate: [56 BPM-96 BPM] (), Resp: [12-22] (), BP: (92-170)/(50-95) (), SpO2: [96 %-100 %] () Physical Exam Gen: Pale well nourished male in no acute distress, conversing appropriately Pulm: Good air movement, clear to auscultation bilaterally, no rhonchi, rales or wheezes CV: Regular rate and rhythm, no murmurs, rubs, or gallops Abd: Non-distended. Positive bowel sounds. Soft, non-tender. No peritoneal signs : No alexander in place Ext: No lower extremity edema warm and well perfused Skin: Pale, no rashes. Neuro: Alert and oriented x4. Face symmetrical, no dysarthria, moving all extremities, sensation grossly intact. Psych: Normal affect and behavior, good mood Is PICC or central line present? No, PICC/Central line not present. Labs Hgb 7.9, otherwise unremarkable Micro None Imaging EGD 06/26/2018 Esophagus - normal Stomach - normal. Cold [...] the ulcer and the procedure was terminated. Assessment/Plan Assessment Alma Carballo is a 63 y.o. male with decompensated cirrhosis complicated by esophageal varices s/p banding and emergent TIPS (2013), treated hepatitis C, pancreatitis who was transferred from [facility] for melena requiring blood transfusions and further management. Herequired several units of blood and was started on ceftriaxone and octreotide. EGD 06/26 with duodenal ulcer that was not able to be clipped and remains at a very high risk of rebleeding. Plan Bleeding duodenal ulcer with melena EGD on 06/26, injected with epi, but endoclipping was unsuccessful. Remains high risk for rebleeding. Discussed case with IR who would not recommend embolization unless needed urgently for rebleeding or if he persistently oozes for 3-4 days. - GI consulted - Maintain 2 large bore IV - Clear liquids - Ceftriaxone 1g daily for 7 days - IV pantoprazole 40mg BID - Zofran PRN - Acetaminophen PRN - Call IR for embolization if HD unstable overnight Decompensated cirrhosis with esophageal varices, intermittent encephalopathy, thrombocytopenia and coagulopathy S/p TIPS. Doppler with patent TIPS. - Switch lactulose for rifaximin while actively having melena - Hold nadolol for now given bleeding Chronic medications - PROTECTIVE SERVICES SOCIAL WORKER buproprion - Hold PROTECTIVE SERVICES SOCIAL WORKER lisonpril VTE Prophylaxis: Holding in setting of GI bleed Discharge Plan: Uncertain at this time, will have PT evaluate. Patient very nervous about going home alone. Consults: GI consulted. IR aware Janie Sanabria MD Internal Medicine PGY-1 7:48 06/27/18 Attending Attestation I interviewed and examined the patient and personally reviewed laboratory studies, radiographic studies, and medical records. I discussed the case with the Medicine residents and agree with history, exam, assessment and plan of care as documented in the note above (with edits in Green). Date of Service: 06/27/2018 Catia Elizondo MD Internal Medicine Hospitalist * Jeny Bertrand - 06/26/2018 1828 EDT Initial Case Management/Social Work Assessment and Discharge Plan/Readmission Risk Assessment REASON FOR ADMISSION: GI Bleed Patient understands reason for admission: Yes PATIENT CONTACT INFO VERIFIED: PATIENT ADDRESS VERIFIED: Yes LIVING ARRANGEMENTS AND ACCESSIBILITY ISSUES: Living Arrangements: Apartment, Alone Levels: 1 Stairs to enter: 4 or more(15 stairs to enter) Handicap access: Railings into home Bathroom located on bedroom level?: Yes What in home social supports are available to the patient? Friends / neighbors Is / care available? No ADVANCED DIRECTIVES, POA &/or COLST IN PLACE: Healthcare Directive: Yes, patient has advance directive for healthcare treatment Type of Healthcare Directive: Durable power of control room helper for health care, Health care treatment directive Copy in Chart: Yes, previous copy on file @ [facility] DIRECTIVES FOR FINANCES: Directive For Finances: No TRANSPORTATION: Transportation: Self(Patient drives and tells that he has a brand new car) CULTURAL, MORMONISM and/or LANGUAGE factors affecting health care/discharge planning: Spiritual/Cultural Requests: None Any factors affecting health care/discharge planning?: No Insurance in Place: Yes Medical Insurance: Yes Type of insurance: Medicare, Supplemental plan to Medicare Medicare type: A, B, D Supplemental: [employer] Referred to patient financial services: No DISCHARGE RISK ASSESSMENT: History of mental illness Total # selected above: Score of 1 - 2: This patient is at LOW RISK for re-hospitalization Tentative plan to address the risk of re-hospitalization for those at HIGH MODERATE RISK: Other: Patient is low risk of rehospitalization RAPT TOOL: Age: 50-65 Gender: Male Ambulation distance: 2 or more blocks (600ft) Gait device: None Community Services: Home health, MOW, SASH-none of one time a week Will you live with someone who will care for you?: No RAPT Tool Score: 9 Patient expects to be discharged to: Home to self care SBIRT: SASQ (Single Alcohol Screening Question) How many times in the past year have you had 5 or more drinks in a single day?: Never How many times in the past year have you used an illegal drug or used a prescription medication fornon-medical reasons?: Never Intervention in place/initiated?: No, not indicated FUNCTIONAL STATUS: Activities patient requires assistance: None Assistive Device: None COMMUNITY RESOURCES/SUPPORTS: Primary Care Provider: Laurie Manzo PCP Verified: Yes Specialists: None(Dr. Marques Gastroenterology, Dr Murrell Liver) Type of Home Health Services: None DME Provider: not at this time Pharmacy: [id number] - [place], [place] - [address] [facility] [id number] [facility] ([facility] - [place], [place] - [address] [place] [id number] Home Health: Not at this time Other: Patient requests a doctor letter verifying dates of hospitalization for his employer at discharge. POST HOSPITAL TRANSITION PLAN: Home to self care. Patient is independent with ADL's and IADL's prior to admission. Patient moved to [place] one month ago and has not totally settled in. Patient requests assistance with a ride home. Please contact case management when patient is discharging for transportation assistance. Jeny Bertrand 06/26/2018 18:28 * Amado Elizondo-Echo LESTER, - 06/26/2018 1631 EDT Medicine Progress Note Service Date: 06/26/2018 Admit Date: 06/24/2018 15:44 Reason for Admission: 63 y.o. male admitted with a chief complaint of melena and now with a principal diagnosis of upper gi bleed. 24 Hour Events: - Transfused one unit overnight Subjective/Objective Subjective Continues to have melena. He reports it got better Tuesday, but worsened yesterday and today. The episode this morning was of smaller volume. He denies any abdominal pain, though does have flank pain that is more musculoskeletal in natures. He feels fatigued and lightheaded as well as nauseous. Hehas not had any vomiting. He denies any chest pain, shortness of breath, fevers, chills, hematuria. Review of Systems Pertinent items are noted in Subjective/HPI Objective Vital Signs Temp: [36.4 ??C (97.5 ??F)-37.6 ??C (99.7 ??F)] (), Heart Rate: [64 BPM-96 BPM] (), Resp: [12-22] (), BP: (92-170)/(51-95) (), SpO2: [95 %-100 %] () Physical Exam Gen: Pale well nourished male in no acute distress, conversing appropriately Pulm: Good air movement, clear to auscultation bilaterally, no rhonchi, rales or wheezes CV: Regular rate and rhythm, no murmurs, rubs, or gallops Abd: Non-distended. Positive bowel sounds. Soft, non-tender. No peritoneal signs : No alexander in place Ext: No lower extremity edema warm and well perfused Skin: Pale, no rashes. Neuro: Alert and oriented x4. Face symmetrical, no dysarthria, moving all extremities, sensation grossly intact. Psych: Normal affect and behavior, good mood Is PICC or central line present? No, PICC/Central line not present. Labs Hgb 7.4, otherwise unremarkable Imaging Rad Us Doppler Visceral 06/25/2018 1. Normal flow and velocities through the TIPS. Assessment/Plan Assessment Alma Carballo is a 63 y.o. male with decompensated cirrhosis complicated by esophageal varices s/p banding and emergent TIPS (2013), treated hepatitis C, pancreatitis who was transferred from [facility] for melena requiring blood transfusions and further management. Herequired several units of blood and was started on ceftriaxone and octreotide. EGD 06/26 with duodenal ulcer that was not able to be clipped and remains at a very high risk of rebleeding. Plan Bleeding duodenal ulcer with melena EGD on 06/26, unable to intervene on bleeding. Remains high risk for rebleeding - GI consulted - Maintain 2 large bore IV - NPO - LR 30mL per hour - Ceftriaxone 1g daily for 7 days - Discontinue octreotide as not variceal bleed - IV pantoprazole 40mg BID - Zofran PRN - Acetaminophen PRN - NPO and consult IR for embolization if HD unstable overnight, will discuss with IR tomorrow Decompensated cirrhosis with esophageal varices, intermittent encephalopathy, thrombocytopenia and coagulopathy S/p TIPS. Doppler with patent TIPS. - Switch lactulose for rifaximin while actively having melena - Hold nadolol for now given bleeding Chronic medications - PROTECTIVE SERVICES SOCIAL WORKER buproprion - Hold PROTECTIVE SERVICES SOCIAL WORKER lisonpril VTE Prophylaxis: Holding in setting of GI bleed Discharge Plan: Uncertain at this time Consults: GI Janie Sanabria MD Internal Medicine PGY-1 16:31 06/26/18 Attending Attestation I interviewed and examined the patient and personally reviewed laboratory studies, radiographic studies, and medical records. I discussed the case with the Medicine residents and agree with history, exam, assessment and plan of care as documented in the note above (with edits in Green). Duodenal ulcer seen on endoscopy but unable to achieve hemostasis. Will need to consult IR for embolization given risk for rebleed. Date of Service: 06/26/2018 Catia Elizondo MD Internal Medicine Hospitalist * Haile Zuniga MD - 06/25/2018 1401 EDT Medicine Progress Note Service Date: 06/25/2018 Admit Date: 06/24/2018 15:44 Reason for Admission: 63 y.o. male admitted with a chief complaint of melena and now with a principal diagnosis of upper gi bleed. 24 Hour Events: - admitted to medicine, transfer from [facility] - Oxycodone for pain - s/p 2 units transfused - Doppler shows patent Doppler shows patent TIPS Subjective/Objective Subjective Feels slightly better today. States that he continues to have melena but states that his episodes have decreased in frequency and have been smaller in volume. Feels slightly less fatigued and is no longer feeling lightheaded. Denies chest pain, shortness of breath, abdominal pain, fevers, and chills. Review of Systems Pertinent items are noted in Subjective/HPI Objective Vital Signs Temp: [36.6 ??C (97.9 ??F)-37.5 ??C (99.5 ??F)] (), Heart Rate: -- (), Resp: [14-18] (), BP: (86-135)/(38-66) (), SpO2: [97 %-100 %] () Physical Exam General: No overt signs of life threatening illness, nontoxic appearing HEENT: Sclera anicteric Cardio: Regular rate and rhythm, no murmurs or gallops Pulm: Breathing comfortably on room air, no wheezes or crackles Abdomen: No tenderness to palpation, distention, or rigidity : No Alexander Extremities: No lower extremity edema Skin: No visible rashes Neuro: Alert, answering questions without difficulty, face symmetrical, speech articulate, moving all extremities Psych: Pleasant demeanor, normal affect Is PICC or central line present? No, PICC/Central line not present. Medications Reviewed: No changes Labs Reviewed: Results notable for Hgb 9.1. Imaging Reviewed: I have independently visualized images Rad Us Doppler Visceral Result Date: 06/25/2018 Impression: 1. Normal flow and velocities through the TIPS. I have personally reviewed the images and the above interpretation and agree with the findings.. Assessment/Plan Assessment Alma Carballo is a 63 y.o. male with a PMHx of hepatitis C, decompensated cirrhosis complicated by esophageal varices s/p banding, TIPS procedure, pancreatitis who presented to [facility] with black stools transferred to [facility] for blood transfusions and further management. He has required multiple different blood transfusions since admission and GI will plan to scopehi on 06/26. Plan Decompensated Cirrhosis with coagulapathy, esophageal varices, and intermittent encephalopathy - GI consulted, greatly appreciate recs - ceftriaxone 1 g daily - variceal history, treat with octreotide for 72 hours - Rifaximin - BMP daily - replete lytes PRN - no evidence of hepatorenal syndrome, hold midodrine - hold BB ?? UGIB possibly 2/2 varices vs portal hypertensive gastropathy vs PUD - type and screen, 2 large bore IV - s/p 2 units PRBC - 2 units PRBC prepared - Clear liquid diet - NPO at midnight for endoscopy 06/26 - GI consulted, greatly appreciate recs ?? VTE Prophylaxis Holding in setting of GI bleed Discharge Plan Uncertain at this time Consults GI Terrie Givens M.D. #[id number] Internal Medicine PGY-1 14:06 06/25/18 Dr. Elizondo to assume care on 06/26/2018. ATTENDING ATTESTATION: Date of service: 06/25/2018 I have reviewed the previous notes, labs, and radiology data. I have seen and examined the patient on 06/25/2018 and agree with the assessment and plan as outlined in Dr. Givens's note above. Additions and/or edits are documented in purple. Haile Zuniga MD 06/26/2018 7:44 documented in this encounter H&P Notes * Hadley Sow MD - 06/30/2018 1125 EDT The preoperative history and physical which was performed within 30 days of this procedure has been reviewed and the clinically appropriate elements of the physical examination have been repeated. There are no changes to the documented history and physical or if so such changes are documented below Hadley Sow MD 06/30/2018 11:25 Source Note - Haile Zuniga MD - 06/24/2018 15:12 EDT Medicine Admission History & Physical Service Date: 06/24/2018 Admit Date: 06/24/2018 14:13 Primary Care Provider: Laurie Manzo Chief Complaint: black bowel movement HPI Alma Carballo is a 63 y.o. male with a PMHx of hepatitis C, decompensated cirrhosis complicated by esophageal varices s/p banding, TIPS procedure, pancreatitis who presented to [facility] ([facility]) with black stools transferred to [facility] for blood transfusions and further management. Has had black bowel movements for the last 2 days, started 06/22 . Saw his PCP on Tuesday, 06/20, for fatigue, PCP mariama blood work and told the patient that everything was normal. Reports he went to the ED because he felt very dizzy and lightheaded. This is the 4-5th time this has occurred in the last year. Reports it usually self resolves, there haven't been any interventions. Reports that this episode is different because this time it is watery black stool intermittently with brighter red blood and it is persistent. Last BM 1 hour before presenting to [facility]. No nsaid use recently. Had one episode of bilious vomiting yesterday. Endorses nausea Denies chest pain, abdominal pain, sob, fevers, chills, swelling in extremities, new rash, abdominal distention. Endorses increasing confusion last week as he was forgetting people's names last week but it resolved with doubling the dose of his lactulose. Reports decreased PO intake for one week. Denies sick contacts. Lives in a home by himself, works at [employer]. Does not smoke, not EtoH use. Moved from [place] to [place] last month. Works at [employer] At [facility], patient found to have hgb drop from 14 to 8, given 2 U PRBC. CTA completed no abnormalities noted, TIPS patent. Also had an elevated ammonia. Meds: nadolol and lactulose at home Allergies: to zolpidem causes him to sleep drive PSH: TIPS, hernia repair FH: father throat cancer, mother liver cancer age 42, sister breast cancer, older brother wilms tumor Review of Systems A complete 10 point ROS was performed and pertinent positive and negative findings listed in HPI, otherwise negative. Past Medical History: Diagnosis Date ??? Anemia ??? Chronic back pain ??? Chronic kidney disease ??? Cirrhosis of liver (CMS-HCC) ??? Colon polyp ??? Depression ??? Esophageal varices (CMS-HCC) ??? Hepatitis C ??? Leg numbness ??? [...] ??? Cancer Sister ??? Anesthesia Problem Sister Meds: see above Allergies Allergen Reactions ??? Ambien [Zolpidem] Sleep-driving Objective Vitals Temp: [37.5 ??C (99.5 ??F)] (), Heart Rate: -- (), Pulse: [74] (), Resp: [16] (), BP: (129)/(54) (), SpO2: [100 %] (), Numeric Pain Level (Scale 1-10): 0 Weight: Weight : 87.9 kg (193 lb 12.6 oz) Body mass index is 30.06 kg/m??. Physical Exam General: No overt signs of life threatening illness, nontoxic appearing HEENT: Sclera anicteric, PERRL, EOMI Cardio: Regular rate and rhythm, no murmurs or gallops Pulm: Breathing comfortably on room air, no wheezes or crackles Abdomen: No tenderness to palpation, distention, or rigidity : No Alexander GI: no adrianna blood on ORIANA Extremities: trace lower extremity Skin: No visible rashes Neuro: Alert, answering questions without difficulty, face symmetrical, speech articulate, moving all extremities, CN II-XII grossly intact Psych: Pleasant demeanor, normal affect Pressure Ulcer Present on admission? No Labs Pending Recent Labs 06/24/18 1728 WBC 5.42 RBC 2.50* HGB 8.5* HCT 23.5* MCV 94 MCH 34.0* MCHC 36.2 PLT 91* Recent Labs 06/24/18 1728 MG 1.9 Recent Labs 06/24/18 1728 PROTIME 15.1* INR 1.3* Imaging CTA Abdomen Pelvis with Contrast at [facility] - TIPS intact - no acute abnormalities noted Assessment Alma Carballo is a 63 y.o. male with a PMHx of hepatitis C, decompensated cirrhosis complicated by esophageal varices s/p banding, TIPS procedure, pancreatitis who presented to [facility] with black stools transferred to [facility] for blood transfusions and further management. Plan Decompensated Cirrhosis with coagulapathy, esophageal varices, and intermittent encephalopathy - GI consulted, greatly appreciate recs - ceftriaxone 1 g daily - variceal history, treat with octreotide for 72 hours - hold lactulose, started rifaximin - LFT CBC BMP daily - replete lytes PRN - no evidence of hepatorenal syndrome, hold midodrine - hold BB UGIB possibly 2/2 varices vs portal hypertensive gastropathy vs PUD - type and screen, 2 large bore IV - 2 units PRBC prepared - NPO for possible GI intervention - GI consulted, greatly appreciate recs VTE Prophylaxis Hold in the setting of GIB Code: DNR DNI no bipap Discharge Plan Uncertain at this time Consults GI Admission Status Inpatient. Anticipated duration of hospitalization is greater than two midnights due to GIB . Terrie Givens M.D. #[id number] Internal Medicine PGY-1 19:32 06/24/18 ATTENDING ATTESTATION: Date of service: 06/24/2018 I have interviewed and examined the patient on 06/24/2018. I have personally reviewed the ECG, laboratory data, imaging studies, and prior records. I have discussed the case with the medicine residents. I agree with the findings and plan of care as documented in the resident's note. Additions or editsare documented in purple. Haile Zuniga MD 06/26/2018 7:41 * Ming Cottrell MD, MD - 06/26/2018 1315 EDT Endoscopy Sedation for Procedure History & Physical Date: 06/26/2018 Time: 13:15 Location: [facility] Planned Procedure: Gastroscopy Chief Complaint/Indications for Procedure: gib History Previous Complication with Sedation and/or Anesthesia? No Allergies: Allergies Allergen Reactions ??? Ambien [Zolpidem] Sleep-driving Current Medications: Current Facility-Administered Medications: acetaminophen (TYLENOL) tablet 500 mg oral Q6H PRN atropine 0.1 mg/mL syringe 0.25-1 mg intravenous PRN cefTRIAXone (ROCEPHIN) 1,000 mg in sodium chloride (NS MBP) 50 mL IVPB intravenous Q24H diphenhydrAMINE (BENADRYL) injection 25 mg intravenous Once PRN flumazenil (ROMAZICON) injection 0.2 mg intravenous PRN lactated ringers (LR) infusion intravenous CONTINUOUS meperidine (PF) (DEMEROL) injection 25-200 mg intravenous Once PRN midazolam (MDV) (VERSED) injection 1-10 mg intravenous Once PRN naloxone (NARCAN) injection 0.4 mg intravenous PRN octreotide (SANDOSTATIN) 500 mcg in sodium chloride (NS) 0.9 % 250 mL infusion intravenous CONTINUOUS ondansetron (ZOFRAN-ODT) disintegrating tablet 4 mg oral Q6H PRN pantoprazole (PROTONIX) injection 40 mg intravenous BID rifAXImin (XIFAXAN) tablet 550 mg oral BID sodium chloride 0.9 % flush 3 mL intravenous PRN Past Medical History: Past Medical History: Diagnosis Date ??? Anemia ??? Chronic back pain ??? Chronic kidney disease ??? Cirrhosis of liver (HCC-CMS) ??? Colon polyp ??? Depression ??? Esophageal varices (HCC-CMS) ??? GIB (gastrointestinal bleeding) ??? Hepatitis C ??? Leg numbness ??? Mental disorder ??? Pancreatitis Social History: Past Surgical History: Procedure Laterality Date ??? BACK SURGERY 1974, 1981 ??? ESOPHAGEAL VARICE LIGATION 2008 or 2009 ??? HERNIA REPAIR hiatal hernia ??? SHOULDER SURGERY 20 years ago ??? TIPS PROCEDURE 01-28-2014 Social History Tobacco Use ??? Smoking status: Never Smoker ??? Smokeless tobacco: Never Used Substance Use Topics ??? Alcohol use: No Family History: Family History Problem Relation Age of Onset ??? Cancer Mother ??? Breast Cancer Mother ??? Alcohol Abuse Father ??? Cancer Father ??? Diabetes Father ??? Cancer Sister ??? Crohn's Disease Sister ??? Diabetes Sister ??? Cancer Brother ??? Anesthesia Problem Brother ??? Cancer Sister ??? Anesthesia Problem Sister Review of Systems as pertinent: Physical Exam Vital Signs: BP 112/51 Pulse 64 Temp 37 ??C (98.6 ??F) (Tympanic) Resp 18 Ht 171 cm (67.32) Wt 87.9 kg (193 lb 12.6 oz) SpO2 98% BMI 30.06 kg/m?? Heart Examination: Cardiac Regularity: Regular Respiratory Examination: Respiratory Pattern: Regular Breath Sounds Right: Clear Breath Sounds Left: Clear Abdominal Examination: Soft, non-tender, bowel sounds normal, no masses, no organomegaly Additional physical exam related to the proposed procedure, patient activity, disease state and treatment as pertinent: Assessment Previous complications with sedation or anesthesia?: No Anesthesia Classification: ASA 3 Plan: Proceed with sedation for procedure Fasting Time: Patient Appropriate Candidate for Planned Sedation?: Yes Ming Cottrell MD 06/26/2018 13:15 * Haile Zuniga MD - 06/24/2018 1512 EDT Medicine Admission History & Physical Service Date: 06/24/2018 Admit Date: 06/24/2018 14:13 Primary Care Provider: Laurie Manzo Chief Complaint: black bowel movement HPI Alma Carballo is a 63 y.o. male with a PMHx of hepatitis C, decompensated cirrhosis complicated by esophageal varices s/p banding, TIPS procedure, pancreatitis who presented to [facility] ([facility]) with black stools transferred to [facility] for blood transfusions and further management. Has had black bowel movements for the last 2 days, started 06/22 . Saw his PCP on Tuesday, 06/20, for fatigue, PCP mariama blood work and told the patient that everything was normal. Reports he went to the ED because he felt very dizzy and lightheaded. This is the 4-5th time this has occurred in the last year. Reports it usually self resolves, there haven't been any interventions. Reports that this episode is different because this time it is watery black stool intermittently with brighter red blood and it is persistent. Last BM 1 hour before presenting to [facility]. No nsaid use recently. Had one episode of bilious vomiting yesterday. Endorses nausea Denies chest pain, abdominal pain, sob, fevers, chills, swelling in extremities, new rash, abdominal distention. Endorses increasing confusion last week as he was forgetting people's names last week but it resolved with doubling the dose of his lactulose. Reports decreased PO intake for one week. Denies sick contacts. Lives in a home by himself, works at [employer]. Does not smoke, not EtoH use. Moved from [place] to [place] last month. Works at [employer] At [facility], patient found to have hgb drop from 14 to 8, given 2 U PRBC. CTA completed no abnormalities noted, TIPS patent. Also had an elevated ammonia. Meds: nadolol and lactulose at home Allergies: to zolpidem causes him to sleep drive PSH: TIPS, hernia repair FH: father throat cancer, mother liver cancer age 42, sister breast cancer, older brother wilms tumor Review of Systems A complete 10 point ROS was performed and pertinent positive and negative findings listed in HPI, otherwise negative. Past Medical History: Diagnosis Date ??? Anemia ??? Chronic back pain ??? Chronic kidney disease ??? Cirrhosis of liver (CMS-HCC) ??? Colon polyp ??? Depression ??? Esophageal varices (CMS-HCC) ??? Hepatitis C ??? Leg numbness ??? [...] ??? Cancer Sister ??? Anesthesia Problem Sister Meds: see above Allergies Allergen Reactions ??? Ambien [Zolpidem] Sleep-driving Objective Vitals Temp: [37.5 ??C (99.5 ??F)] (), Heart Rate: -- (), Pulse: [74] (), Resp: [16] (), BP: (129)/(54) (), SpO2: [100 %] (), Numeric Pain Level (Scale 1-10): 0 Weight: Weight : 87.9 kg (193 lb 12.6 oz) Body mass index is 30.06 kg/m??. Physical Exam General: No overt signs of life threatening illness, nontoxic appearing HEENT: Sclera anicteric, PERRL, EOMI Cardio: Regular rate and rhythm, no murmurs or gallops Pulm: Breathing comfortably on room air, no wheezes or crackles Abdomen: No tenderness to palpation, distention, or rigidity : No Alexander GI: no adrianna blood on ORIANA Extremities: trace lower extremity Skin: No visible rashes Neuro: Alert, answering questions without difficulty, face symmetrical, speech articulate, moving all extremities, CN II-XII grossly intact Psych: Pleasant demeanor, normal affect Pressure Ulcer Present on admission? No Labs Pending Recent Labs 06/24/18 1728 WBC 5.42 RBC 2.50* HGB 8.5* HCT 23.5* MCV 94 MCH 34.0* MCHC 36.2 PLT 91* Recent Labs 06/24/18 1728 MG 1.9 Recent Labs 06/24/18 1728 PROTIME 15.1* INR 1.3* Imaging CTA Abdomen Pelvis with Contrast at [facility] - TIPS intact - no acute abnormalities noted Assessment Alma Carballo is a 63 y.o. male with a PMHx of hepatitis C, decompensated cirrhosis complicated by esophageal varices s/p banding, TIPS procedure, pancreatitis who presented to [facility] with black stools transferred to [facility] for blood transfusions and further management. Plan Decompensated Cirrhosis with coagulapathy, esophageal varices, and intermittent encephalopathy - GI consulted, greatly appreciate recs - ceftriaxone 1 g daily - variceal history, treat with octreotide for 72 hours - hold lactulose, started rifaximin - LFT CBC BMP daily - replete lytes PRN - no evidence of hepatorenal syndrome, hold midodrine - hold BB UGIB possibly 2/2 varices vs portal hypertensive gastropathy vs PUD - type and screen, 2 large bore IV - 2 units PRBC prepared - NPO for possible GI intervention - GI consulted, greatly appreciate recs VTE Prophylaxis Hold in the setting of GIB Code: DNR DNI no bipap Discharge Plan Uncertain at this time Consults GI Admission Status Inpatient. Anticipated duration of hospitalization is greater than two midnights due to GIB . Terrie Givens M.D. #[id number] Internal Medicine PGY-1 19:32 06/24/18 ATTENDING ATTESTATION: Date of service: 06/24/2018 I have interviewed and examined the patient on 06/24/2018. I have personally reviewed the ECG, laboratory data, imaging studies, and prior records. I have discussed the case with the medicine residents. I agree with the findings and plan of care as documented in the resident's note. Additions or editsare documented in purple. Haile Zuniga MD 06/26/2018 7:41 documented in this encounter Procedure Notes * Hadley Sow MD - 06/30/2018 1328 EDT Procedures IR Procedure Note Procedure: GDA embolization Date Performed: 06/30/2018 Radiologist/Machine Binder Stripper(s): Magi/Gloria Sedation/Anesthesia: Versed/Fentanyl/Lidocaine Time Out: A time-out was completed prior to procedure verifying correct patient, procedure, site, positioning, and special equipment if applicable. Estimated Blood Loss: Unless otherwise noted, there was no blood loss, specimens removed, cultures obtained, or drains retained. Fluoroscopy Time: See dictation Contrast Volume: 50cc Complications: None immediate Condition: Stable Post Procedure Diagnosis: Upper GI bleed Findings: Celiac angiogram showing no evidence of pseudoaneurysm or active extravasation. Successful prophylactic GDA transcatheter microcoil and gelfoam embolization. Recommendations: Bedrest with rt leg straight 4hours. F/u PRN. Hadley Sow MD 06/30/2018 13:28 * Ming Cottrell MD, MD - 06/26/2018 2037 EDT EGD Findings Esophagus - normal Stomach - normal. Cold [...] the ulcer and the procedure was terminated. Recommendations -Recommend transfer to MICU for monitoring given high risk of re-bleeding -If patient rebleeds, recommend IR embolization (we have notified them of the case) -Continue PPI BID for 2 months followed by once daily thereafter -Can discontinue octreotide infusion -Continue CTX 1g IV daily for a total of 7 days to reduce mortality from bleeding in the setting ofcirrhosis Discussed with Dr. Renee Cottrell MD Gastroenterology and Hepatology Fellow documented in this encounter Consult Notes * Curt Blanco MD - 06/25/2018 1223 EDT Gastroenterology & Hepatology Consult Note The Gastroenterology service was consulted to see Alma Carballo for melena. Requesting Physician: Haile Zuniga MD HPI: 63 y.o.male with a history of decompensated cirrhosis secondary to chronic hepatitis C (treated with ledipasvir/sofosbuvir with SVR in 2013) complicated by esophageal varices and chronic bleeding secondary to portal hypertensive gastropathy warranting TIPS procedure in 2013, also with hepatic encephalopathy. He now reports melena since 06/22. He has had about 3-4 episodes per day. He saw his PCP on 06/20 and was told that his blood work was normal. He continued to have melenic stools and presented to the ED. His labs were notable for Hgb 8.5, Plts 91, TB 1.8, AST 21, ALT 27, AP 45, INR 1.3.He was started on ceftriaxone, PPI, octreotide and admitted to Medicine. He overall felt well this am. Reports having 3 episodes of melena overnight - unconfirmed by nursing staff. ROS: Full 10-point review of systems was performed and was negative except as detailed above. PMH: As stated in HPI. MEDICATION LIST: Current Facility-Administered Medications: ??? acetaminophen (TYLENOL) tablet 500 mg, 500 mg, oral, Q6H PRN, Rabia Adorno DO, 500 mg at06/25/18 1219 ??? cefTRIAXone (ROCEPHIN) 1,000 mg in sodium chloride (NS MBP) 50 mL IVPB, 1,000 mg, intravenous, Q24H, Terrie Givens MD, 1,000 mg at 06/24/18 1652 ??? lactated ringers (LR) infusion, 1,000 mL, intravenous, CONTINUOUS, Terrie Givens MD, Last Rate: 100 mL/hr at 06/25/18 1101, 1,000 mL at 06/25/18 1101 ??? octreotide (SANDOSTATIN) 500 mcg in sodium chloride (NS) 0.9 % 250 mL infusion, 50 mcg/hr, intravenous, CONTINUOUS, Terrie Givens MD, Last Rate: 25 mL/hr at 06/25/18 0835, 50 mcg/hr at 06/25/18 0835 ??? ondansetron (ZOFRAN-ODT) disintegrating tablet 4 mg, 4 mg, oral, Q6H PRN, Rabia Adorno DO, 4 mg at 06/25/18 0321 ??? oxyCODONE (ROXICODONE) immediate release tablet 5 mg, 5 mg, oral, Now, Rabia Adorno DO ??? pantoprazole (PROTONIX) injection 40 mg, 40 mg, intravenous, BID, Terrie Givens MD, 40 mg at 06/25/18 0833 ??? rifAXImin (XIFAXAN) tablet 550 mg, 550 mg, oral, BID, Terrie Givens MD, 550 mg at 06/25/18 0833 Allergies Allergen Reactions ??? Ambien [Zolpidem] Sleep-driving [...] file Gets together: Not on file Attends tenriism service: Not on file Active member of [...] Cancer Sister ??? Anesthesia Problem Sister PE: Vitals: 06/25/18 0330 06/25/18 0418 06/25/18 0520 06/25/18 1025 BP: 122/57 135/66 104/40 104/54 BP Cuff Location: Right arm Left arm Patient Position: Semi fowlers Semi fowlers Pulse: 69 Resp: 18 18 16 Temp: 36.6 ??C (97.9 ??F) 36.9 ??C (98.4 ??F) 37 ??C (98.6 ??F) 36.8 ??C (98.2 ??F) TempSrc: Tympanic Tympanic Tympanic SpO2: 99% 100% 99% Weight: Height: General: In NAD HEENT: Normal Heart: RRR, Normal S1/S2, No M/R/G Lungs: CTAB, Non-labored respirations Abdomen: Soft, Nontender, Nondistended Rectal Exam: Deferred Neuro: No gross motor or sensory deficits Extremities: No peripheral edema Skin: No evident changes Laboratory/Imaging/Procedures: Data reviewed. Pertinent results are as follows: Hgb 8.5 -> 9.1 Lab Results Component Value Date WBC 4.33 06/25/2018 HGB 9.1 (L) 06/25/2018 HCT 24.7 (L) 06/25/2018 MCV 93 06/25/2018 PLT 93 (L) 06/25/2018 Lab Results Component Value Date INR 1.3 (H) 06/24/2018 INR 1.2 (H) 10/30/2014 INR 1.1 10/03/2014 PROTIME 15.1 (H) 06/24/2018 PROTIME 13.3 (H) 10/30/2014 PROTIME 12.9 10/03/2014 Recent Labs 06/25/18 0522 CREATININE 0.86 NA 141 K 4.3 CL 113* CO2 24 RUQ US: Impression: 1. Normal flow and velocities through the TIPS. Impression and Recommendations: 63 y.o. male with a history of decompensated cirrhosis secondary to chronic hepatitis C (treated with ledipasvir/sofosbuvir with SVR in 2013) complicated by esophageal varices and chronic bleeding secondary to portal hypertensive gastropathy warranting TIPS procedure in 2013, also with hepatic encephalopathy. He now reports melena since 06/22. Continues to have melena in the absence of hemodynamic instability. TIPS is patent on doppler ultrasound, suggesting against portal hypertensive-related etiology (varices, portal gastropathy). PUD and erosive esophagtitis/gastritis are also on the differential. -- EGD tomorrow (Tuesday). -- Clear liquids today. NPO midnight tonight. -- Continue PPI, octreotide, ceftriaxone. -- If more significant bleeding before tomorrow with hemodynamic instability, will need MICU transfer for more urgent EGD. This patient was discussed with Dr. Murrell. Curt Blanco MD Gastroenterology & Hepatology Fellow #[id number] * Gear Nguyễn MD, MD - 06/25/2018 0450 EDT Red Blood Cell Transfusion Reaction-Pathology Patient: Alma Carballo Transfusion Initiated (date/time): 06/25/18 at 01:07 Transfusion Terminated (date/time): 06/25/18 at 04:15 Blood Bank Notified (date/time): 06/25/18 at 04:45 Notified By: Phone call from Dr. Rabia Adorno Blood Product Detail: Red Blood Cells Donor/Unit Number: [id number] Amount Transfused: 211 mL Reaction Description: blood pressure change from 108/52 before transfusion to 86/43 Laboratory Investigation Laboratory workup? No - Per Dr. Arizmendi and Dr. Nguyễn Pre-transfusion records reviewed? Yes Clerical/grain operations manager errors found? No Post-transfusion blood specimen: Not Collected Urine specimen: Not Collected Culture of blood unit: Not performed. Additional Testing: Not performed Laboratory Investigation Comments: Alma Carballo is a 63-year-old male with a past medical history of chronic hepatitis C and decompensated cirrhosis. He was admitted on 06/24/18 for a GI bleed (melena). 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 For a Hb value of 8.5 g/dL (on 06/24/18 at 17:28), two units of RBC were ordered. The first RBC unit was started on 06/24/18 at 20:51 with no prior reaction to a blood product. The second RBC unit was started on 06/25/18 at 01:07. The patient was not specifically pre-medicated. Vital signs before the transfusion were: T 36.7C, HR 71, RR 14, BP 108/52, SpO2 98%. During the transfusion, the blood pressure l owered to 105/51 (at 01:30), 86/43 (at 02:00), 88/38 (at 02:12), 108/55 (at 02:51), 122/57 (at 03:30), and 135/66 (at 04:18). The other vital signs did not change significantly during or after the transfusion. During the transfusion, the patient also complained of right upper quadrant/stomach pain associated with nausea, which had been noted prior to the transfusion. The transfusion was paused after approximately 40mL and the patient was feeling better and the transfusion was restarted at a slower rate and he continued to have hypotension but was otherwise asymptomatic and ???feeling fine?? .The patient denied dyspnea, chills/rigors, hives, itching, rash, or edema. Given the presence of hypotension, an allergic reaction was considered; however, given the absence of a second symptom such as skin manifestations, edema, pruritus, or respiratory distress/bronchospasm, the definitive criteria for an allergic reaction are not met. Given the presence of hypotension, a hypotensive transfusion reaction was considered; however given the lack of a drop in systolic BP of greater than 30mmHg and systolic BP less than 80mmHg, the definitive criteria for a hypotensive transfusion reaction are not met. Given that the hypotension occurred without a documented increase in HR, and the patient is not on beta- blocking medications, a vasovagal reaction is a consideration (although this is not a transfusion reaction recognized by the National [employer] Safety Network Biovigilance Component/AABB). Continue transfusion support as clinically indicated. Assessment/Conclusions: Diagnosis: Hypotensive transfusion reaction Case Definition Criteria: Did not meet CDC criteria. Severity:Grade 1 (Non-Severe) Imputability:Possible (Note: Diagnosis, criteria, severity, and imputability as defined by CDC/AABB Biovigilance Network) Cecily Arizmendi MD 06/25/2018 13:18 Findings suspicious for a vaso-vagal reaction with transfusion. Attending attestation: I personally reviewed the study and the resident's/fellow's interpretation and agree with the findings except clarified that case definition criteria was not met.. Gera Nguyễn MD 06/26/2018 15:28 documented in this encounter Miscellaneous Notes * Plan of Care - Gonzalo Hensley RN - 07/02/2018 1341 EDT Problem: Daily Care Plan Goals Goal: Care Plan Documentation Nursing Discharge Note D: Patient noted with discharge orders to: Home. A: Prescriptions faxed to pharmacy. Reviewed discharge instructions and prescriptions with Patient IV d/c'd. Belongings collected and sent home with patient. R: Patient verbalized understanding of discharge instructions and denied further questions. GONZALO HENSLEY RN 07/02/2018 16:14 * Plan of Care - Elva Queen RN - 07/02/2018 0543 EDT Problem: Daily Care Plan Goals Goal: Care Plan Documentation Outcome: Ongoing 07/01/182116 Care Plan Focus Area of Focus Pain/ Comfort Goal This Shift Pt will report pain has been managed to a tolerable level for him this shift. Nursing Pain Note D: Patient reporting 7-8/10 right groin pain at incisional site. Patient described pain as sore after walking frequently through out the day. A: Patient receiving PRN medications. See MAR. Provided the following non- pharmacologic interventions: emotional support, distraction and rest. R: Reassessed pt at 0300, sleeping comfortably. Will continue to monitor and adjust interventions as necessary. ELVA QUEEN RN 07/02/2018 5:39 Problem: High Fall Risk: Add only for + Hendrich score - Add only risk factors indicated by assessment Goal: Patient will Remain Free of Falls due to Med. Side Effects Outcome: Met This Shift Goal: Patient Will Remain Free from Fall-Related Injury Outcome: Met This Shift Goal: Patient will Remain Free of Falls due to Dizziness/Vertigo Outcome: Met This Shift Goal: Patient will Remain Free of Falls due to Altered Elimination Outcome: Met This Shift * Plan of Care - Elva Queen RN - 07/01/2018 0817 EDT Problem: Daily Care Plan Goals Goal: Care Plan Documentation Nursing Pain Note D: Patient c/o pain located at femoral groin site following IR procedure. Pt states that he is having 0/10 pain at rest however when he pokes it experiences 7-8/10 pain. Pt states that MD told him he should not be experiencing any pain. A: Patient receiving PRN medications. See MAR. Provided the following non- pharmacologic interventions: emotional support. Groin site assessed, no bruising, swelling or firmness noted to area. R: Pt reassessed, sleeping comfortably. Will continue to monitor and adjust interventions as necessary. ELVA QUEEN RN 07/01/2018 8:13 Problem: High Fall Risk: Add only for + Hendrich score - Add only risk factors indicated by assessment Goal: Patient will Remain Free of Falls due to Med. Side Effects Outcome: Met This Shift Goal: Patient Will Remain Free from Fall-Related Injury Outcome: Met This Shift * Plan of Care - Breonna Iyer RN - 06/29/2018 2221 EDT Problem: Daily Care Plan Goals Goal: Care Plan Documentation D: Patient with upper GI bleed. States some throat pain but declines intervention. Ambulates independently. A: Preformed shift assessment. New orders for NPO at 0000 for possible embolization tomorrow. CT scan done. Administered scheduled medications. See eMAR. Encouraged to ring with needs. R: Patient currently resting in bed. Call salas within reach. Able to make needs known. Will continue to monitor. Breonna Iyer RN 06/29/2018 22:20 * Plan of Care - Mary Ann aBrry RN - 06/29/2018 1410 EDT Problem: Daily Care Plan Goals Goal: Care Plan Documentation Outcome: Ongoing 06/29/18 0900 Care Plan Focus Area of Focus GI//Elimination Goal This Shift monitor for bloody stools Data: HD #5 GI BLEED Action:PATIENT REPORTS HAVING 4 LOOSE BLACK STOOLS Response: HCT 21.5 HGB 7.7 Mary Ann Barry RN 06/29/2018 14:09 * Plan of Care - Joe Mota RN - 06/28/2018 0426 EDT Problem: Daily Care Plan Goals Goal: Care Plan Documentation Outcome: Ongoing 06/27/18 2336 Care Plan Focus Area of Focus Pain/ Comfort Goal This Shift pt throat pain will be stated as tolerable throughout shift Nursing Pain Note D: Patient c/o 8/10. Pain located in the Throat going down to his neck. A: Patient receiving PRN medications. See MAR. Provided education to on other options for pain control as oxycodone may not be targetting his throat pain. Pt refused lozenges and tylenol. R: Patient now sleeping in bed. Will continue to monitor and adjust interventions as necessary. Call light within reach nd being used appropriately. JOE MOTA RN 06/28/2018 4:22 * Plan of Care - Arlette Hill RN - 06/27/2018 1558 EDT Problem: Daily Care Plan Goals Goal: Care Plan Documentation Outcome: Ongoing 06/27/18 0809 Care Plan Focus Area of Focus Circulatory Status Goal This Shift pt will remain hemodynamically stable Data: Patient admitted for melena requiring several blood transfusions. EGD 06/26 with duodenal ulcer unable to be clipped. Remain NPO due to very high risk of rebleeding. Complaining of 8/10 throat pain throughout shift, no redness on exam. Action: Ambulated in hallway with patient as a contact guard assist x3. Given PRN Oxycodone and Tylenol for pain (see MAR) in addition to lozenges. Response: Patient tolerated ambulation x3 well with steady gait, no dizziness/lightheadedness. Reports decreased throat pain after Oxycodone administration. Remains hemodynamically stable. Will continue to monitor. ARLETTE HILL RN 06/27/2018 15:50 * Plan of Care - Destinee Bacon RN - 06/27/2018 0525 EDT Pt admitted for GI bleed, determined to originate in duodenal sweep. Due to size and location, attempts to clip were unsuccessful. AOx3, complaints of throat pain treated with oxycodone x1 and tylenol after magic mouthwash and cough drops did nothing to control pain. 1 unit of PRBC given for H/H of 6.7/19.2. Tolerated well. Close monitoring for high risk of re-bleeding. Pt is NPO in case of emergent bleed. * Plan of Care - Arlette Hill RN - 06/26/2018 1726 EDT Problem: Daily Care Plan Goals Goal: Care Plan Documentation 06/26/18 0826 Care Plan Focus Area of Focus Circulatory Status Goal This Shift pt will remain hemodynamically stable Data: Patient admitted from outside hospital for bleeding. Pt hemoglobin 7.4 and hematocrit 21. PIVx2 with LR running 30mL/hr. ?? Action: Patient went to endoscopy today and had 2 clips placed for duodenal ulcer and biopsy of stomach for H pylori. VS monitored Q4. Diet remains NPO for risk of rebleed. Medications given per MAR. ?? Response: VSS. Resting comfortably. Denies any questions regarding tests. Will continue to monitor hemodynamic status. ?? ARLETTE HILL RN 06/26/2018 17:13 * Plan of Care - Arlette Hill RN - 06/25/2018 1148 EDT Problem: Daily Care Plan Goals Goal: Care Plan Documentation Outcome: Ongoing 06/25/18 0834 Care Plan Focus Area of Focus Circulatory Status Goal This Shift pt will remain hemodynamically stable Data: Patient admitted from outside hospital for blood transfusion. Pt hemoglobin 9.1 and hematocrit 24.7, continuing to improve. NPO. 2 PIV's with LR running 100 mL/hr and Octreotide 25 mL/hr. Action: VS monitored Q4. Diet changed to clears. Medications given PRN for pain. Response: VSS. Patient understand plan for EGD surgery tomorrow. Tolerated PO intake well. Will continue to monitor hemodynamic status. ARLETTE HILL RN 06/25/2018 11:42 * Plan of Care - Chris Mariano RN - 06/25/2018 0032 EDT Problem: Daily Care Plan Goals Goal: Care Plan Documentation 06/24/18 1600 Care Plan Focus Area of Focus GI//Elimination Goal This Shift pt will be monitored for melena D: Pt with melena and bright red blood x3 after admission to 4. BP dropped after 2nd BM, from 129/54, HR74 to 97/47, HR 80. Significant downtrend in H/H over the past week due to blood loss via rectum. Lab Results Component Value Date PLT 91 (L) 06/24/2018 Lab Results Component Value Date HGB 8.5 (L) 06/24/2018 Lab Results Component Value Date HCT 23.5 (L) 06/24/2018 A: MD Zuniga and Kyree notified. 3 units of RBC ordered without premedication, 2 orders to transfuse R: Pt received 1 of 2 units this shift. Pt tolerated transfusion well. No signs of reaction. Will continue to monitor, CBC s/p second infusion Chris Mariano RN 06/25/2018 0:28 * Plan of Care - Felisa Navarrete RN - 06/24/2018 1611 EDT Patient arrived to floor at 1440. Upon arrival patient had a unit of RBCs that finished without S/Sof reaction. Unit number was [id number]. Will continue to monitor. documented in this encounter Plan of Treatment Upcoming Encounters Date Type Department Care Team (Late st Contact Info) Description 01/23/2024 10:00 EDT Office Visit [facility] General Surgery - [address] [address] Bon Gutierrez MD [address] [facility], [facility], [address] [place] [address] 09/10/2024 10:00 EDT Appointment [facility] [address] [place] [address] Pending Results Name Type Priority Associated Diagnoses Date /Time TRANSFUSE RED BLOOD CELLS Transfuse Routine 06/25/2018 1:10 EDT PREPARE RED BLOOD CELLS Blood Bank Routine 0 06/25/2018 10:30 EDT TRANSFUSE RED BLOOD CELLS Transfuse Routine 06/26/2018 20:10 EDT Scheduled Orders Name Type Priority Associated Diagnoses Orde r Schedule PREPARE RED BLOOD CELLS Blood Bank Routine One Time for 1 Occurrences starting 06/25/2018 until 06/25/2018 Scheduled Referrals Name Type Priority Associated Diagnoses Orde r Schedule AMB CONS/FOLLOW UP PRIMARY CARE PHYSICIAN Outpatient Referral Routine Duodenal ulcer with hemorrhage Ordered: 07/02/2018 documented as of this encounter Procedures Procedure Name Priority Date/Time Associated Diagnosis Comments TRANSFUSION RECORD - SCANNED 07/05/2018 10:24 EDT ECG REPORT - SCANNED 07/05/2018 10:24 EDT COMPLETE BLOOD COUNT Routine 07/02/2018 5:52 EDT COMPLETE BLOOD COUNT Routine 07/01/2018 6:13 EDT IR EMBOLIZATION Routine 06/30/2018 13:30 EDT INPATIENT ADD-ON STAT 06/30/2018 11:3 0 EDT DIFFERENTIAL Routine 06/30/2018 7:39 EDT COMPLETE BLOOD COUNT Routine 06/30/2018 7:39 EDT CREATININE Routine 06/30/2018 7:39 EDT ELECTROLYTES Routine 06/30/2018 7:[address] ANGIO ABDOMEN AND PELVIS W/WO CONTRAST Routine 06/29/2018 19:06 EDT COMPLETE BLOOD COUNT Routine 06/29/2018 7:19 EDT CREATININE Routine 06/29/2018 7:19 EDT ELECTROLYTES Routine 06/29/2018 7:19 EDT COMPLETE BLOOD COUNT Routine 06/28/2018 22:25 EDT HCV RNA DETECT QUANT Routine 06/28/2018 6:56 EDT COMPLETE BLOOD COUNT Routine 06/28/2018 6:56 EDT CREATININE Routine 06/28/2018 6:56 EDT ELECTROLYTES Routine 06/28/2018 6:56 EDT COMPLETE BLOOD COUNT Routine 06/27/2018 17:53 EDT COMPLETE BLOOD COUNT Routine 06/27/2018 6:52 EDT CREATININE Routine 06/27/2018 6:52 EDT ELECTROLYTES Routine 06/27/2018 6:52 EDT COMPLETE BLOOD COUNT Routine 06/26/2018 18:48 EDT ECG REPORT - SCANNED 06/26/2018 17:13 EDT SURGICAL PATHOLOGY Routine 06/26/2018 8: 04 EDT PROTIME Routine 06/26/2018 6:31 EDT COMPLETE BLOOD COUNT Routine 06/26/2018 6:31 EDT CREATININE Routine 06/26/2018 6:31 EDT ELECTROLYTES Routine 06/26/2018 6:31 EDT COMPLETE BLOOD COUNT Routine 06/26/2018 0:55 EDT UPPER ENDOSCOPY PROCEDURE Routine 06/26/2018 TRANSFUSE RED BLOOD CELLS Routine 06/25/2018 20:18 EDT PREPARE RED BLOOD CELLS Routine 06/26/19 19 18:43 EDT COMPLETE BLOOD COUNT Routine 06/25/2018 18:06 EDT COMPLETE BLOOD COUNT STAT 06/25/2018 14:18 EDT PREPARE RED BLOOD CELLS Routine 06/26/19 10:32 EDT COMPLETE BLOOD COUNT Routine 06/25/2018 5:22 EDT ALT Routine 06/25/2018 5:22 EDT AST Routine 06/25/2018 5:22 EDT ALKALINE PHOSPHATASE Routine 06/25/2018 5:22 EDT CREATININE Routine 06/25/2018 5:22 EDT BILIRUBIN, TOTAL Routine 06/25/2018 5:22 EDT ELECTROLYTES Routine 06/25/2018 5:22 EDT TRANSFUSE RED BLOOD CELLS Routine 06/25/2018 1:07 EDT RAD US DOPPLER VISCERAL STAT 06/25/19 19 23:12 EDT PREPARE RED BLOOD CELLS Routine 06/25/19 19 19:17 EDT PREPARE RED BLOOD CELLS Routine 06/25/19 19 19:17 EDT PREPARE RED BLOOD CELLS Routine 06/25/19 19 18:31 EDT SMEAR REVIEW Routine 06/24/2018 17:28 EDT LACTIC ACID STAT 06/24/2018 17:28 EDT PROTIME STAT 06/24/2018 17:28 EDT COMPLETE BLOOD COUNT STAT 06/24/2018 17:28 EDT MAGNESIUM STAT 06/24/2018 17:28 EDT ANTIBODY IDENTIFICATION Routine 06/25/19 19 17:21 EDT TYPE AND SCREEN Routine 06/24/2018 17:21 EDT EKG 12-LEAD Routine 06/24/2018 17:18 EDT TRANSFUSE RED BLOOD CELLS Routine documented in this encounter Results * TRANSFUSION RECORD - SCANNED (07/05/2018 10:24 EDT) 07/05/2018 10:2 4 EDT Scan 2 [facility] LAB INFO SERVICE AN D SUPPORT & PHONE RESULT * ECG REPORT - SCANNED (07/05/2018 10:24 EDT) 07/05/2018 10:2 4 EDT Scan 2 [facility] PROCEDURE/MINOR TY GICAL ORDERABLES * (ABNORMAL) COMPLETE BLOOD COUNT (07/02/2018 5:52 EDT) WBC 3.70(L) 4.0 - 10.4 K/cmm 07/02/2018 6:17 [facility] RBC 2.48(L) 4.36 - 5.78 M/cmm 07/02/2018 6:17 [facility] Hemoglobin 7.9(L) 13.8 - 17.3 gm/dl 07/02/2018 6:17 [facility] HCT 22.3(L) 39.5 - 50.2 % 07/02/2018 6:17 [facility] MCV 90 81 - 95 fl 07/02/2018 6:17 [facility] MCH 31.9 27.6 - 33.0 pg 07/02/2018 6:17 [facility] MCHC 35.4 32.8 - 36.4 gm/dl 07/02/2018 6:17 [facility] RDW-CV 15.3(H) <14.2 % 07/02/2018 6:17 [facility] RDW-SD 49.6(H) <46.0 fl 07/02/2018 6:17 [facility] PLT 112(L) 141 - 377 K/cmm 07/02/2018 6:17 [facility] MPV 9.0(L) 9.5 - 12.7 fl 07/02/2018 6:17 [facility] Blood specimen (specimen) BLOOD SPECIMEN / Unknown 07/02/2018 5:52 EDT 07/02/2018 6:10 EDT Zac Whitaker MD HEMATOLOGY & PF4 OR DERABLES Performing Organization Address City/State/[facility] Co de Phone Number [facility] [address] [place] [address] * (ABNORMAL) COMPLETE BLOOD COUNT (07/01/2018 6:13 EDT) WBC 4.52 4.0 - 10.4 K/cmm 07/01/2018 6:37 [facility] RBC 2.42(L) 4.36 - 5.78 M/cmm 07/01/2018 6:37 [facility] Hemoglobin 7.6(L) 13.8 - 17.3 gm/dl 07/01/2018 6:37 [facility] HCT 21.9(L) 39.5 - 50.2 % 07/01/2018 6:37 [facility] MCV 91 81 - 95 fl 07/01/2018 6:37 [facility] MCH 31.4 27.6 - 33.0 pg 07/01/2018 6:37 [facility] MCHC 34.7 32.8 - 36.4 gm/dl 07/01/2018 6:37 [facility] RDW-CV 15.6(H) <14.2 % 07/01/2018 6:37 EDT [facility] RDW-SD 50.3(H) <46.0 fl 07/01/2018 6:37 EDT [facility] PLT 114(L) 141 - 377 K/cmm 07/01/2018 6:37 EDT [facility] MPV 8.9(L) 9.5 - 12.7 fl 07/01/2018 6:37 EDT [facility] Blood specimen (specimen) BLOOD SPECIMEN / Unknown 07/01/2018 6:13 EDT 07/01/2018 6:28 EDT Zac Whitaker MD HEMATOLOGY & PF4 OR DERABLES Performing Organization Address City/State/[facility] Co de Phone Number [facility] [address] [place] [id number] * IR EMBOLIZATION (06/30/2018 13:30 EDT) Anatomical Region Laterality Modality Other 06/30/2018 13:3 0 EDT 06/30/2018 14:57 EDT Narrative 06/30/2018 14:57 EDT Celiac conventional angiogram Gastroduodenal artery embolization 06/30/2018 11:40 AM CLINICAL HISTORY: 63-year-old male with upper GI bleed. Persistent melanoma with known duodenal ulcers. COMPARISON: CTA performed last night. PROCEDURE: After explaining the benefits and the risks of the procedure with the patient, written consent was obtained. The patient was prepped and draped in sterile fashion. 1% lidocaine was used for local analgesia. Conscious sedation was administered with the monitoring of the patient's heart rate, blood pressure, respiratory rate, and oxygen saturation. The patient was placed supine on angiographic table. Sonographic images of a patent right common femoral artery were recorded to the patient's medical chart. Sonographic guidance was was used to gain percutaneous access into the right JINRIKISHA DRIVER via a micropuncture kit. The micropuncture Sheath was exchanged over a guidewire for a 5 Cambodian access sheath. A SOS-35 Cambodian catheter was negotiated into the abdominal aorta over a guidewire and used to select the celiac trunk. ??An angiogram was performed which demonstrated the origin of the gastroduodenal artery. No evidence of pseudoaneurysm or contrast extravasation was identified. A microwire microcatheter combination were negotiated through the catheter into the distal gastroduodenal artery (3rd order selection). An angiogram was performed which demonstrated patent vasculature as well as the origin of the gastroepiploic artery. Proximal GDA Gelfoam and microcoil embolization was performed through the microcatheter under fluoroscopic guidance. Final angiogram demonstrated complete cessation of flow through the proximal GDA. All wires, catheters, and she were. Hemostasis was achieved with a hemostatic patch and manual pressure. A dry sterile dressing was applied. The patient tolerated the procedure well without immediate post procedural complication. Fluoroscopic time: 9.8 minutes Total DAP: 256,504 Blood loss: 3cc. Contrast volume: [address] Karel Castro was present for the entire procedure. IMPRESSION: 1. Celiac and gastroduodenal arteriography with embolization of proximal GDA for upper GI bleed, as described above. I have personally reviewed the images and the above interpretation and agree with the findings. Procedure Note Karel Castro MD, MD - 06/30/2018 Celiac conventional angiogram Gastroduodenal artery embolization 06/30/2018 11:40 AM CLINICAL HISTORY: 63-year-old male with upper GI bleed. Persistent melanoma with known duodenal ulcers. COMPARISON: CTA performed last night. PROCEDURE: After explaining the benefits and the risks of the procedure with the patient, written consent was obtained. The patient was prepped and draped in sterile fashion. 1% lidocaine was used for local analgesia. Conscious sedation was administered with the monitoring of the patient's heart rate, blood pressure, respiratory rate, and oxygen saturation. The patient was placed supine on angiographic table. Sonographic images of a patent right common femoral artery were recorded to the patient's medical chart. Sonographic guidance was was used to gain percutaneous access into the right JINRIKISHA DRIVER via a micropuncture kit. The micropuncture Sheath was exchanged over a guidewire for a 5 Cambodian access sheath. A SOS-35 Cambodian catheter was negotiated into the abdominal aorta over a guidewire and used to select the celiac trunk. An angiogram was performed which demonstrated the origin of the gastroduodenal artery. No evidence of pseudoaneurysm or contrast extravasation was identified. A microwire microcatheter combination were negotiated through the catheter into the distal gastroduodenal artery (3rd order selection). An angiogram was performed which demonstrated patent vasculature as well as the origin of the gastroepiploic artery. Proximal GDA Gelfoam and microcoil embolization was performed through the microcatheter under fluoroscopic guidance. Final angiogram demonstrated complete cessation of flow through the proximal GDA. All wires, catheters, and she were. Hemostasis was achieved with a hemostatic patch and manual pressure. A dry sterile dressing was applied. The patient tolerated the procedure well without immediate post procedural complication. Fluoroscopic time: 9.8 minutes Total DAP: 256,504 Blood loss: 3cc. Contrast volume: [address] Karel Castro was present for the entire procedure. IMPRESSION: 1. Celiac and gastroduodenal arteriography with embolization of proximal GDA for upper GI bleed, as described above. I have personally reviewed the images and the above interpretation and agree with the findings. Janie Sanabria MD IMG IR ORDERABLES * INPATIENT ADD-ON (06/30/2018 11:30 EDT) Tests to be added CBD WITH DIFF 06/30/2018 11:27 T [facility] Number for problems [id number] 06/30/2018 11:35 T [facility] Accession number [id number] 06/30/2018 11:35 EDT [facility] TOPOGRAPHY UNKNOWN / Unknown 06/30/2018 11:30 EDT 06/30/2018 11:32 EDT Zac Whitaker MD HEMATOLOGY & PF4 OR DERABLES [facility] [address] [place] [address] * (ABNORMAL) DIFFERENTIAL (06/30/2018 7:39 EDT) % Neutrophils 64.0 % 06/30/2018 11:51 EDT [facility] % Lymphocytes 20.4 % 06/30/2018 11:51 EDT [facility] % Monocytes 11.2 % [facility]/30[facility]2018 [facility] % Eosinophils 3.4 % 06/30/2018 11:51 [facility] LABORATORY SERVICES % Basophils 0.3 % 06/30/2018 11:51 [facility] % Immature Grans 0.7 % 06/30/2018 11:51 [facility] ABS Neutrophils 1.86(L) 2.20 - 8.85 K/cmm 06/30/2018 11:51 [facility] ABS Lymphs 0.59(L) 1.09 - 3.30 K/cmm 06/30/2018 11:51 [facility] ABS Monocytes 0.33 0.1 - 0.8 K/cmm 06/30/2018 11:51 [facility] ABS Eosinophils 0.10 0.03 - 0.61 K/cmm 06/30/2018 11:51 [facility] ABS Basophils 0.01 0.01 - 0.11 K/cmm 06/30/2018 11:51 [facility] ABS Immature Grans 0.02 0 - 0.06 K/cmm 06/30/2018 11:51 [facility] Type of Diff: Automated 06/30/2018 11:51 [facility] BLOOD SPECIMEN / Unknown 06/30/2018 7:39 EDT 06/30/2018 8:11 EDT Terrie Givens MD HEMATOLOGY & PF4 ORD ERABLES [facility] [address] [place] [id number] * (ABNORMAL) COMPLETE BLOOD COUNT (06/30/2018 7:39 EDT) WBC 2.91(L) 4.0 - 10.4 K/cmm 06/30/2018 8:17 [facility] RBC 2.44(L) 4.36 - 5.78 M/cmm 06/30/2018 8:17 [facility] Hemoglobin 7.8(L) 13.8 - 17.3 gm/dl 06/30/2018 8:17 [facility] HCT 22.4(L) 39.5 - 50.2 % 06/30/2018 8:17 [facility] MCV 92 81 - 95 fl 06/30/2018 8:17 [facility] MCH 32.0 27.6 - 33.0 pg 06/30/2018 8:17 [facility] MCHC 34.8 32.8 - 36.4 gm/dl 06/30/2018 8:17 [facility] RDW-CV 15.9(H) <14.2 % 06/30/2018 8:17 [facility] RDW-SD 51.8(H) <46.0 fl 06/30/2018 8:17 [facility] PLT 104(L) 141 - 377 K/cmm 06/30/2018 8:17 [facility] MPV 9.3(L) 9.5 - 12.7 fl 06/30/2018 8:17 [facility] Blood specimen (specimen) BLOOD SPECIMEN / Unknown 06/30/2018 7:39 EDT 06/30/2018 8:11 EDT Zac Whitaker MD HEMATOLOGY & PF4 OR DERABLES [facility]ORATORY SERVICES [address] [place] [address] * CREATININE (06/30/2018 7:39 EDT) Creatinine 0.66 0.66 - 1.25 mg/dl 06/30/2018 8:44 T [facility] GFR, Calculated 101 >60 ml/min/1.7 3m2 06/30/2018 8:44 [facility] Comment: eGFR calculated using CKD-EPI equation for non Americans. Multiply eGFR by 1.16 for Americans. Blood specimen (specimen) BLOOD SPECIMEN / Unknown 06/30/2018 7:39 EDT 06/30/2018 8:11 EDT Terrie Givens MD CHEMISTRY & BLOOD GA S ORDERABLES Performing Organization Address City/[facility] Co de Phone Number [facility] [address] [place] [address] * ELECTROLYTES (06/30/2018 7:39 EDT) Sodium 136 136 - 145 mEq/L 06/30/2018 8:44 EDT [facility] Potassium 4.2 3.5 - 5.0 mEq/L 06/30/2018 8:44 EDT [facility] Chloride 106 96 - 110 mEq/L 06/30/2018 8:44 EDT [facility] CO2 28 22 - 32 mEq/L 06/30/2018 8:44 EDT [facility] Blood specimen (specimen) BLOOD SPECIMEN / Unknown 06/30/2018 7:39 EDT 06/30/2018 8:11 EDT Trerie Givens MD CHEMISTRY & BLOOD GA S ORDERABLES Performing Organization Address [facility] Co de Phone Number [facility] [address] [place] [address] * CT ANGIO ABDOMEN AND PELVIS W/WO CONTRAST (06/29/2018 19:06 EDT) Anatomical Region Laterality Modality Other 06/29/2018 19:0 6 EDT 06/30/2018 10:43 EDT Narrative 06/30/2018 10:[address] ANGIOGRAPHY OF ABDOMEN/PELVIS Clinical Indication: Chest pain radiating to back. Technique: A CT scan was obtained of the abdomen, and pelvis with precontrast, arterial phase post contrast, and venous phase postcontrast images in 3 mm axial sections with coronal and sagittal reformations. Oral contrast was not administered. MIP images and 3-D reconstructions were also obtained. ?? Comparison: . Findings: VASCULATURE: Aorta: Tortuous but otherwise normal caliber aorta without aneurysm, intramural hematoma, occlusion, or dissection. Small eccentric calcified plaque infrarenal abdominal aorta. Celiac trunk: Patent. ?? Superior mesenteric artery: Patent. Renal arteries: Patent solitary left and right renal arteries. Inferior mesenteric artery: Patent. Common iliac arteries: Minimal calcified atherosclerosis. Otherwise widely patent. Internal iliac arteries: Patent. External iliac arteries: Patent. Common femoral arteries: Patent. No evidence of pseudoaneurysm within the major arterial system. The major visualized venous system is not well evaluated due to suboptimal contrast opacification. ABDOMEN/PELVIS: LOWER THORAX: Bibasilar subsegmental atelectasis. Normal heart size. No pleural pericardial effusion. HEPATOBILIARY: Prior TIPS placement. Normal liver size. Nodular liver contour consistent with cirrhosis. Gallstones layering within contracted gallbladder. No ductal dilatation. PANCREAS: 2 mm hyperdensity within the pancreatic head represent parenchymal calcification, but is otherwise uncertain etiology and significance. Stable hypodensity within the pancreas body measuring up to 1.9 cm, unchanged when compared to prior examination dated 01/28/2014. SPLEEN: Normal. ADRENAL GLANDS: Normal. KIDNEYS: Symmetric size and contour. No hydronephrosis. Multiple nonobstructing left renal calculi, measuring up to 7 mm. URINARY BLADDER: Physiologically distended. PELVIC STRUCTURES: Unremarkable prostate gland and seminal vesicles. Multiple phleboliths. BOWEL: Limited evaluation without enteric contrast and optimal distention. No evidence of obstruction. Heterogeneous material distending gastric cavity may represent gastric contents or mixed hemorrhagic material. Nonvisualized appendix. Linear metallic densities within the small bowel are likely dropped clips from recent endoscopic clipping attempted on 06/26/2018. No evidence of focal contrast extravasation on the arterial phase imaging to suggest active hemorrhage. PERITONEAL CAVITY: No intraperitoneal free air. No free intraperitoneal fluid. No pathologically enlarged lymph nodes identified. RETROPERITONEUM: No retroperitoneal lymphadenopathy. BODY WALL: No body wall mass. OSSEOUS STRUCTURES: Severe scoliosis and multilevel bony fusion with extensive paraspinal atrophy. Impression: No evidence of contrast extravasation within the GI tract to suggest active hemorrhage. Slightly limited technique due to suboptimal contrast bolus. Cirrhosis with prior TIPS placement. Cholelithiasis without CT evidence of cholecystitis. I have personally reviewed the images and the above interpretation and agree with the findings. Procedure Note Karel Castro MD, - 06/30/2018 CT ANGIOGRAPHY OF ABDOMEN/PELVIS Clinical Indication: Chest pain radiating to back. Technique: A CT scan was obtained of the abdomen, and pelvis with precontrast, arterial phase post contrast, and venous phase postcontrast images in 3 mm axial sections with coronal and sagittal reformations. Oral contrast was not administered. MIP images and 3-D reconstructions were also obtained. Comparison: . Findings: VASCULATURE: Aorta: Tortuous but otherwise normal caliber aorta without aneurysm, intramural hematoma, occlusion, or dissection. Small eccentric calcified plaque infrarenal abdominal aorta. Celiac trunk: Patent. Superior mesenteric artery: Patent. Renal arteries: Patent solitary left and right renal arteries. Inferior mesenteric artery: Patent. Common iliac arteries: Minimal calcified atherosclerosis. Otherwise widely patent. Internal iliac arteries: Patent. External iliac arteries: Patent. Common femoral arteries: Patent. No evidence of pseudoaneurysm within the major arterial system. The major visualized venous system is not well evaluated due to suboptimal contrast opacification. ABDOMEN/PELVIS: LOWER THORAX: Bibasilar subsegmental atelectasis. Normal heart size. No pleural pericardial effusion. HEPATOBILIARY: Prior TIPS placement. Normal liver size. Nodular liver contour consistent with cirrhosis. Gallstones layering within contracted gallbladder. No ductal dilatation. PANCREAS: 2 mm hyperdensity within the pancreatic head represent parenchymal calcification, but is otherwise uncertain etiology and significance. Stable hypodensity within the pancreas body measuring up to 1.9 cm, unchanged when compared to prior examination dated 01/28/2014. SPLEEN: Normal. ADRENAL GLANDS: Normal. KIDNEYS: Symmetric size and contour. No hydronephrosis. Multiple nonobstructing left renal calculi, measuring up to 7 mm. URINARY BLADDER: Physiologically distended. PELVIC STRUCTURES: Unremarkable prostate gland and seminal vesicles. Multiple phleboliths. BOWEL: Limited evaluation without enteric contrast and optimal distention. No evidence of obstruction. Heterogeneous material distending gastric cavity may represent gastric contents or mixed hemorrhagic material. Nonvisualized appendix. Linear metallic densities within the small bowel are likely dropped clips from recent endoscopic clipping attempted on 06/26/2018. No evidence of focal contrast extravasation on the arterial phase imaging to suggest active hemorrhage. PERITONEAL CAVITY: No intraperitoneal free air. No free intraperitoneal fluid. No pathologically enlarged lymph nodes identified. RETROPERITONEUM: No retroperitoneal lymphadenopathy. BODY WALL: No body wall mass. OSSEOUS STRUCTURES: Severe scoliosis and multilevel bony fusion with extensive paraspinal atrophy. Impression: No evidence of contrast extravasation within the GI tract to suggest active hemorrhage. Slightly limited technique due to suboptimal contrast bolus. Cirrhosis with prior TIPS placement. Cholelithiasis without CT evidence of cholecystitis. I have personally reviewed the images and the above interpretation and agree with the findings. Janie Sanabria MD IMG CT ORDERABLES * (ABNORMAL) COMPLETE BLOOD COUNT (06/29/2018 7:19 EDT) WBC 3.68(L) 4.0 - 10.4 K/cmm 06/29/2018 8:16 [facility] RBC 2.35(L) 4.36 - 5.78 M/cmm 06/29/2018 8:16 [facility] Hemoglobin 7.7(L) 13.8 - 17.3 gm/dl 06/29/2018 8:16 [facility] HCT 21.5(L) 39.5 - 50.2 % 06/29/2018 8:16 [facility] MCV 92 81 - 95 fl 06/29/2018 8:16 [facility] MCH 32.8 27.6 - 33.0 pg 06/29/2018 8:16 [facility] MCHC 35.8 32.8 - 36.4 gm/dl 06/29/2018 8:16 [facility] RDW-CV 16.3(H) <14.2 % 06/29/2018 8:16 [facility] RDW-SD 50.9(H) <46.0 fl 06/29/2018 8:16 [facility] PLT 108(L) 141 - 377 K/cmm 06/29/2018 8:16 [facility] MPV 9.1(L) 9.5 - 12.7 fl 06/29/2018 8:16 [facility] Blood specimen (specimen) BLOOD SPECIMEN / Unknown 06/29/2018 7:19 EDT 06/29/2018 8:05 EDT Zac Whitaker MD HEMATOLOGY & PF4 OR DERABLES [facility] [address] [place] [address] * CREATININE (06/29/2018 7:19 EDT) Creatinine 0.73 0.66 - 1.25 mg/dl 06/29/2018 8:23 EDT [facility] GFR, Calculated 97 >60 ml/min/1.7 3m2 06/29/2018 8:23 T [facility] Comment: eGFR calculated using CKD-EPI equation for non Americans. Multiply eGFR by 1.16 for Americans. Blood specimen (specimen) BLOOD SPECIMEN / Unknown 06/29/2018 7:19 EDT 06/29/2018 8:05 EDT Terrie Givens MD CHEMISTRY & BLOOD GA S ORDERABLES Performing Organization Address City/[facility] Co de Phone Number [facility] [address] [place] [address] * ELECTROLYTES (06/29/2018 7:19 EDT) Sodium 136 136 - 145 mEq/L 06/29/2018 8:23 T [facility] Potassium 4.5 3.5 - 5.0 mEq/L 06/29/2018 8:23 [facility] Chloride 104 96 - 110 mEq/L 06/29/2018 8:23 [facility] CO2 28 22 - 32 mEq/L 06/29/2018 8:23 T [facility] Blood specimen (specimen) BLOOD SPECIMEN / Unknown 06/29/2018 7:19 EDT 06/29/2018 8:05 EDT Terrie Givens MD CHEMISTRY & BLOOD GA S ORDERABLES Performing Organization Address City/[facility]/ZIP Co de Phone Number [facility] [address] [place] [address] * (ABNORMAL) COMPLETE BLOOD COUNT (06/28/2018 22:25 EDT) WBC 3.18(L) 4.0 - 10.4 K/cmm 06/28/2018 23:03 EDT [facility] RBC 2.29(L) 4.36 - 5.78 M/cmm 06/28/2018 23:03 [facility] Hemoglobin 7.5(L) 13.8 - 17.3 gm/dl 06/28/2018 23:03 [facility] HCT 21.5(L) 39.5 - 50.2 % 06/28/2018 23:03 [facility] MCV 94 81 - 95 fl 06/28/2018 23:03 [facility] MCH 32.8 27.6 - 33.0 pg 06/28/2018 23:03 [facility] MCHC 34.9 32.8 - 36.4 gm/dl 06/28/2018 23:03 [facility] RDW-CV 16.6(H) <14.2 % 06/28/2018 23:03 [facility] RDW-SD 50.8(H) <46.0 fl 06/28/2018 23:03 [facility] Anisocytosis 1+ 06/28/2018 23:03 [facility] PLT 103(L) 141 - 377 K/cmm 06/28/2018 23:03 [facility] MPV 9.3(L) 9.5 - 12.7 fl 06/28/2018 23:03 [facility] Nucleated RBC's 1 /100 WBC'S 9 23:03 [facility] Blood specimen (specimen) BLOOD SPECIMEN / Unknown 06/28/2018 22:25 EDT 06/28/2018 22:30 EDT Zac Whitaker MD HEMATOLOGY & PF4 OR DERABLES [facility] [address] [place] [address] * (ABNORMAL) COMPLETE BLOOD COUNT (06/28/2018 6:56 EDT) WBC 3.38(L) 4.0 - 10.4 K/cmm 06/28/2018 7:25 [facility] RBC 2.35(L) 4.36 - 5.78 M/cmm 06/28/2018 7:25 [facility] Hemoglobin 7.6(L) 13.8 - 17.3 gm/dl 06/28/2018 7:25 [facility] HCT 21.5(L) 39.5 - 50.2 % 06/28/2018 7:25 [facility] MCV 92 81 - 95 fl 06/28/2018 7:25 [facility] MCH 32.3 27.6 - 33.0 pg 06/28/2018 7:25 [facility] MCHC 35.3 32.8 - 36.4 gm/dl 06/28/2018 7:25 [facility] RDW-CV 16.3(H) <14.2 % 06/28/2018 7:25 [facility] RDW-SD 48.7(H) <46.0 fl 06/28/2018 7:25 [facility] PLT 96(L) 141 - 377 K/cmm 06/28/2018 7:25 [facility] MPV 9.2(L) 9.5 - 12.7 fl 06/28/2018 7:25 [facility] Nucleated RBC's 1 /100 WBC'S 9 7:25 [facility] Blood specimen (specimen) BLOOD SPECIMEN / Unknown 06/28/2018 6:56 EDT 06/28/2018 7:13 EDT Terrie Givens MD HEMATOLOGY & PF4 ORD ERABLES [facility] [address] [place] [address] * CREATININE (06/28/2018 6:56 EDT) Creatinine 0.86 0.66 - 1.25 mg/dl 06/28/2018 7:41 [facility] GFR, Calculated 91 >60 ml/min/1.7 3m2 06/28/2018 7:41 [facility] Comment: eGFR calculated using CKD-EPI equation for non Americans. Multiply eGFR by 1.16 for Americans. Blood specimen (specimen) BLOOD SPECIMEN / Unknown 06/28/2018 6:56 EDT 06/28/2018 7:13 EDT Terrie Givens MD CHEMISTRY & BLOOD GA S ORDERABLES Performing Organization Address [facility] [[email or web address]] de Phone Number [facility] [address] [place] [address] * (ABNORMAL) ELECTROLYTES (06/28/2018 6:56 EDT) Pathologist [facility] Sodium 135(L) 136 - 145 mEq/L 06/28/2018 7:41 EDT [facility] Potassium 3.9 3.5 - 5.0 mEq/L 06/28/2018 7:41 EDT [facility] Chloride 106 96 - 110 mEq/L 06/28/2018 7:41 EDT [facility] CO2 28 22 - 32 mEq/L 06/28/2018 7:41 EDT [facility] Blood specimen (specimen) BLOOD SPECIMEN / Unknown 06/28/2018 6:56 EDT 06/28/2018 7:13 EDT Terrie Givens MD CHEMISTRY & BLOOD GA S ORDERABLES Performing Organization Address [facility] [[email or web address]] de Phone Number [facility] [address] [place] [address] * HCV RNA DETECT QUANT (06/28/2018 6:56 EDT) [facility] HCV RNA Detect Quant Undetected Undetected IU/mL 06/29/2018 16:21 EDT [facility] Comment: Reference Range: ??Undetected The quantification range of this assay is 15 IU/mL to 100,000,000 IU/mL. Testing was performed by the [employer]ip[employer]ili TaqMan HCV v2.0 ([employer] Blood specimen (specimen) BLOOD SPECIMEN / Unknown 06/28/2018 6:56 EDT 06/28/2018 7:13 EDT Zac Whitaker MD CHEMISTRY & BLOOD G ORDERABLES [facility] [address] [place] [address] * (ABNORMAL) COMPLETE BLOOD COUNT (06/27/2018 17:53 EDT) WBC 3.30(L) 4.0 - 10.4 K/cmm 06/27/2018 18:32 [facility] RBC 2.31(L) 4.36 - 5.78 M/cmm 06/27/2018 18:32 [facility] Hemoglobin 7.5(L) 13.8 - 17.3 gm/dl 06/27/2018 18:32 [facility] HCT 21.5(L) 39.5 - 50.2 % 06/27/2018 18:32 [facility] MCV 93 81 - 95 fl 06/27/2018 18:32 [facility] MCH 32.5 27.6 - 33.0 pg 06/27/2018 18:32 [facility] MCHC 34.9 32.8 - 36.4 gm/dl 06/27/2018 18:32 [facility] RDW-CV 16.1(H) <14.2 % 06/27/2018 18:32 [facility] RDW-SD 50.4(H) <46.0 fl 06/27/2018 18:32 [facility] PLT 88(L) 141 - 377 K/cmm 06/27/2018 18:32 [facility] MPV 9.0(L) 9.5 - 12.7 fl 06/27/2018 18:32 [facility] Nucleated RBC's 1 /100 WBC'S 9 18:32 [facility] Blood specimen (specimen) BLOOD SPECIMEN / Unknown 06/27/2018 17:53 EDT 06/27/2018 18:08 EDT Terrie Givens MD HEMATOLOGY & PF4 ORD ERABLES Performing Organization Address City/[facility]/ZIP Co de Phone Number [facility] [address] [place] [address] * CREATININE (06/27/2018 6:52 EDT) Creatinine 0.89 0.66 - 1.25 mg/dl 06/27/2018 7:45 EDT [facility] GFR, Calculated 90 >60 ml/min/1.7 3m2 06/27/2018 7:45 EDT [facility] Comment: eGFR calculated using CKD-EPI equation for non Americans. Multiply eGFR by 1.16 for Americans. Blood specimen (specimen) BLOOD SPECIMEN / Unknown 06/27/2018 6:52 EDT 06/27/2018 7:19 EDT Terrie Givens MD CHEMISTRY & BLOOD GA S ORDERABLES Performing Organization Address [facility] Co de Phone Number [facility] [address] [place] [address] * ELECTROLYTES (06/27/2018 6:52 EDT) Sodium 136 136 - 145 mEq/L 06/27/2018 7:45 EDT [facility] Potassium 4.0 3.5 - 5.0 mEq/L 06/27/2018 7:45 EDT [facility] Chloride 108 96 - 110 mEq/L 06/27/2018 7:45 EDT [facility] CO2 25 22 - 32 mEq/L 06/27/2018 7:45 EDT [facility] Blood specimen (specimen) BLOOD SPECIMEN / Unknown 06/27/2018 6:52 EDT 06/27/2018 7:19 EDT Terrie Givens MD CHEMISTRY & BLOOD GA S ORDERABLES Performing Organization Address [facility] Co de Phone Number [facility] [address] [place] [address] * (ABNORMAL) COMPLETE BLOOD COUNT (06/27/2018 6:52 EDT) WBC 3.79(L) 4.0 - 10.4 K/cmm 06/27/2018 7:34 [facility] RBC 2.46(L) 4.36 - 5.78 M/cmm 06/27/2018 7:34 [facility] Hemoglobin 7.9(L) 13.8 - 17.3 gm/dl 06/27/2018 7:34 [facility] HCT 22.3(L) 39.5 - 50.2 % 06/27/2018 7:34 [facility] MCV 91 81 - 95 fl 06/27/2018 7:34 [facility] MCH 32.1 27.6 - 33.0 pg 06/27/2018 7:34 [facility] MCHC 35.4 32.8 - 36.4 gm/dl 06/27/2018 7:34 [facility] RDW-CV 16.4(H) <14.2 % 06/27/2018 7:34 [facility] RDW-SD 50.0(H) <46.0 fl 06/27/2018 7:34 [facility] PLT 85(L) 141 - 377 K/cmm 06/27/2018 7:34 [facility] MPV 9.3(L) 9.5 - 12.7 fl 06/27/2018 7:34 [facility] Nucleated RBC's 1 /100 WBC'S 9 7:34 [facility] Blood specimen (specimen) BLOOD SPECIMEN / Unknown 06/27/2018 6:52 EDT 06/27/2018 7:19 EDT Terrie Givens MD HEMATOLOGY & PF4 ORD ERABLES [facility] [address] [place] [address] * (ABNORMAL) COMPLETE BLOOD COUNT (06/26/2018 18:48 EDT) WBC 5.02 4.0 - 10.4 K/cmm 06/26/2018 19:10 [facility] RBC 2.03(L) 4.36 - 5.78 M/cmm 06/26/2018 19:10 [facility] Hemoglobin 6.7(LL) 13.8 - 17.3 gm/dl 06/26/2018 19:10 [facility] HCT 19.2(LL) 39.5 - 50.2 % 06/26/2018 19:10 [facility] MCV 95 81 - 95 fl 06/26/2018 19:10 [facility] MCH 33.0 27.6 - 33.0 pg 06/26/2018 19:10 [facility] MCHC 34.9 32.8 - 36.4 gm/dl 06/26/2018 19:10 [facility] RDW-CV 15.9(H) <14.2 % 06/26/2018 19:10 [facility] RDW-SD 52.3(H) <46.0 fl 06/26/2018 19:10 [facility] PLT 82(L) 141 - 377 K/cmm 06/26/2018 19:10 [facility] MPV 9.2(L) 9.5 - 12.7 fl 06/26/2018 19:10 [facility] Nucleated RBC's 1 /100 WBC'S 9 19:10 [facility] Blood specimen (specimen) BLOOD SPECIMEN / Unknown 06/26/2018 18:48 EDT 06/26/2018 18:59 EDT Terrie Givens MD HEMATOLOGY & PF4 ORD ERABLES [facility] [address] [place] [address] * ECG REPORT - SCANNED (06/26/2018 17:13 EDT) 06/26/2018 17:1 3 EDT Scan 2 [facility] PROCEDURE/MINOR TY GICAL ORDERABLES * SURGICAL PATHOLOGY (06/26/2018 8:04 EDT) Pathology Report: SURGICAL PATHOLOGY REPORT Reports generated via electronic interface contain original data; however they are lacking the format of the original report. Caution should be taken when reading/interpret ing unformatted reports. Name: ? ALMA CARBALLO ? Accession #: ? [id number] ? : ? 1955 (Age: 63) ??M ? Collect Date: ? 06/26/2018 ? Location: ? M006 ? Receive Date: ? 06/26/2018 ? Provider: BRODY MURRELL MD Copy to: HAILE MANZO MD ? Final Pathologic Diagnosis: A. STOMACH, ANTRUM, BIOPSY - Antral mucosa showing mild reactive gastropathy. B. STOMACH, BODY, BIOPSY: - Oxyntic mucosa showing no specific pathologic features. Document reviewed and electronically signed by: SARAH HILLIARD MD Report ??Date: 06/27/2018 19:32 By the signature above, the attending physician certifies that he/she has personally conducted a gross and/or microscopic examination of the described specimens and rendered or confirmed the above diagnosis. Specimen(s) Received: A. ??Antrum B. ??Body Clinical History: Duodenal ulcer, ? H. pylori Gross Description: A. ?Received in formalin labelled with proper patient identification (initials W, J) and stomach antrum bx are three ames tissues (0.2 x 0.2 x 0.1 cm to 0.3 x 0.3 x 0.1 cm). Submitted in toto in A1. B. ?Received in formalin labelled with proper patient identification (initials W, J) and stomach body bx is a ames tissue (0.5 x 0.3 x 0.1 cm). Submitted in toto in B1. QUYNH [place] (ASCP) 06/27/2018 8:17 AM End of Report [facility] 06/26/2018 8:04 EDT 06/26/2018 8:04 EDT Brody Murrell MD PhD PATHOLOGY ORDER CLAUDIO [facility] [address] [place] [address] * (ABNORMAL) COMPLETE BLOOD COUNT (06/26/2018 6:31 EDT) WBC 4.22 4.0 - 10.4 K/cmm 06/26/2018 7:10 [facility] RBC 2.29(L) 4.36 - 5.78 M/cmm 06/26/2018 7:10 [facility] Hemoglobin 7.4(L) 13.8 - 17.3 gm/dl 06/26/2018 7:10 [facility] HCT 21.0(L) 39.5 - 50.2 % 06/26/2018 7:10 [facility] MCV 92 81 - 95 fl 06/26/2018 7:10 [facility] MCH 32.3 27.6 - 33.0 pg 06/26/2018 7:10 [facility] MCHC 35.2 32.8 - 36.4 gm/dl 06/26/2018 7:10 [facility] RDW-CV 15.9(H) <14.2 % 06/26/2018 7:10 [facility] RDW-SD 50.1(H) <46.0 fl 06/26/2018 7:10 [facility] PLT 82(L) 141 - 377 K/cmm 06/26/2018 7:10 EDT [facility] MPV 10.1 9.5 - 12.7 fl 06/26/2018 7:10 T [facility] Nucleated RBC's 1 /100 WBC'S 9 7:10 T [facility] Blood specimen (specimen) BLOOD SPECIMEN / Unknown 06/26/2018 6:31 EDT 06/26/2018 6:51 EDT Terrie Givens MD HEMATOLOGY & PF4 ORD ERABLES Performing Organization Address City/[facility] Co de Phone Number [facility] [address] [place] [address] * CREATININE (06/26/2018 6:31 EDT) Creatinine 0.87 0.66 - 1.25 mg/dl 06/26/2018 7:29 T [facility] GFR, Calculated 91 >60 ml/min/1.7 3m2 06/26/2018 7:29 T [facility] Comment: eGFR calculated using CKD-EPI equation for non Americans. Multiply eGFR by 1.16 for Americans. Blood specimen (specimen) BLOOD SPECIMEN / Unknown 06/26/2018 6:31 EDT 06/26/2018 6:51 EDT Terrie Givens MD CHEMISTRY & BLOOD GA S ORDERABLES Performing Organization Address [facility] Co de Phone Number [facility] [address] [place] [address] * ELECTROLYTES (06/26/2018 6:31 EDT) Sodium 137 136 - 145 mEq/L 06/26/2018 7:29 T [facility] Potassium 4.0 3.5 - 5.0 mEq/L 06/26/2018 7:29 T [facility] Chloride 110 96 - 110 mEq/L 06/26/2018 7:29 T [facility] CO2 25 22 - 32 mEq/L 06/26/2018 7:29 [facility] Blood specimen (specimen) BLOOD SPECIMEN / Unknown 06/26/2018 6:31 EDT 06/26/2018 6:51 EDT Terrie Givens MD CHEMISTRY & BLOOD GA S ORDERABLES Performing Organization Address [facility] [[email or web address]] de Phone Number [facility] [address] [place] [address] * (ABNORMAL) PROTIME (06/26/2018 6:31 EDT) Pro Time 15.5(H) 10.3 - 13.4 secs 06/26/2018 7:16 [facility] I.N.R. 1.3(H) 0.9 - 1.1 Ratio 06/26/2018 7:16 [facility] Comment: Moderate Intensity Coumadin INR = 2.0-3.0 Adjustments in anticoagulant therapy dose should be based upon the INR and NOT the Pro Time. Blood specimen (specimen) BLOOD SPECIMEN / Unknown 06/26/2018 6:31 EDT 06/26/2018 6:51 EDT Paul Strauss MD HEMATOLOGY & PF4 ORD ERABLES Performing Organization Address [facility] Co de Phone Number [facility] [address] [place] [address] * (ABNORMAL) COMPLETE BLOOD COUNT (06/26/2018 0:55 EDT) WBC 5.12 4.0 - 10.4 K/cmm 06/26/2018 1:17 [facility] RBC 2.31(L) 4.36 - 5.78 M/cmm 06/26/2018 1:17 [facility] Hemoglobin 7.5(L) 13.8 - 17.3 gm/dl 06/26/2018 1:17 [facility] HCT 21.1(L) 39.5 - 50.2 % 06/26/2018 1:17 [facility] MCV 91 81 - 95 fl 06/26/2018 1:17 [facility] MCH 32.5 27.6 - 33.0 pg 06/26/2018 1:17 [facility] MCHC 35.5 32.8 - 36.4 gm/dl 06/26/2018 1:17 [facility] RDW-CV 15.6(H) <14.2 % 06/26/2018 1:17 [facility] RDW-SD 49.9(H) <46.0 fl 06/26/2018 1:17 [facility] PLT 88(L) 141 - 377 K/cmm 06/26/2018 1:17 [facility] MPV 9.4(L) 9.5 - 12.7 fl 06/26/2018 1:17 [facility] Blood specimen (specimen) BLOOD SPECIMEN / Unknown 06/26/2018 0:55 EDT 06/26/2018 0:57 EDT Haile Zuniga MD HEMATOLOGY & PF4 OR DERABLES Performing Organization Address City/State/[facility] Co de Phone Number [facility] [address] [place] [address] * UPPER ENDOSCOPY PROCEDURE (06/26/2018) Anatomical Region Laterality Modality Endoscopy 06/26/2018 Narrative 06/26/2018 20:43 EDT Procedure Performed EGD Indications for Exam GI bleed Procedure Technique A physical exam was performed. Informed consent was obtained from the patient after explaining all the risks (perforation, bleeding, infection and adverse effects to the medicine), benefits and alternatives to the procedure which the patient appeared to understand and so stated. ??The patient was connected to the monitoring devices and placed in the left lateral position. Continuous oxygen was provided with a nasal cannula and IV medicine administered through a indwelling cannula. After adequate sedation was achieved the gastroscope was inserted under direct vision into the esophagus and then carefully advanced to the distal duodenum. ?? The distal duodenum was identified by visual landmarks. The scope was subsequently removed slowly while carefully examining the color, texture, anatomy, and integrity of the mucosa on withdrawal. The patient was subsequently transferred to the recovery area in satisfactory condition. Estimated Blood Loss: None Complications None Medications Versed 3 mg Demerol 75 mg I was in continuous face to face attendance during the administration of moderate sedation services that were monitored by an independent trained observer who had no other duties during the procedure. ??Total sedation time was ??45 ??minutes. Findings Esophagus - normal Stomach - normal. Cold [...] the ulcer and the procedure was terminated. Diagnosis Esophagus - normal Stomach - normal. Cold [...] the ulcer and the procedure was terminated. Recommendations Recommend transfer to MICU for monitoring given high risk of re-bleeding If patient rebleeds, recommend IR embolization (we have notified them of the case) Continue PPI BID for 2 months followed by once daily thereafter Can discontinue octreotide infusion The??procedure??was??performed??by??Dr. Ming Cottrell M.D. in the presence of Dr. Brody Murrell. The attending physician was in the room for the entire procedure. This electronic signature authenticates all electronic and/or handwritten documentation, including orders, generated by the signer during the episode of care contained in this record. 06/26/2018 08:43:35 PM By Brody Murrell MD Brody Murrell MD PhD GI PROCEDURE OR DERABLES * TRANSFUSE RED BLOOD CELLS (06/25/2018 23:15 EDT) Blood specimen (specimen) Marianna Browne MD NURSING [facility] ATMENT - BLOOD ADMINISTRATION * TRANSFUSE RED BLOOD CELLS (06/25/2018 23:15 EDT) Blood specimen (specimen) Marianna Browne MD NURSING [facility] ATMENT - BLOOD ADMINISTRATION * PREPARE RED BLOOD CELLS (06/25/2018 18:43 EDT) Product Code [id number] [facility] Donor Number [id number] U [facility] Unit ABO A [facility] Unit Rh POS [facility] Unit Status TR^Transfuse [facility] Product Expiration Date [id number] [facility] Unit Blood Type Code 6200 [facility] Coding System [id number] [facility] Blood specimen (specimen) 06/25/2018 18:43 EDT Marianna Browne MD BLOOD BANK ORDERABLES [facility] * (ABNORMAL) COMPLETE BLOOD COUNT (06/25/2018 18:06 EDT) WBC 3.79(L) 4.0 - 10.4 K/cmm 06/25/2018 18:34 [facility] RBC 1.90(L) 4.36 - 5.78 M/cmm 06/25/2018 18:34 [facility] Hemoglobin 6.4(LL) 13.8 - 17.3 gm/dl 06/25/2018 18:34 [facility] HCT 17.5(LL) 39.5 - 50.2 % 06/25/2018 18:34 [facility] MCV 92 81 - 95 fl 06/25/2018 18:34 [facility] MCH 33.7(H) 27.6 - 33.0 pg 06/25/2018 18:34 [facility] MCHC 36.6(H) 32.8 - 36.4 gm/dl 06/25/2018 18:34 [facility] RDW-CV 15.4(H) <14.2 % 06/25/2018 18:34 [facility] RDW-SD 50.1(H) <46.0 fl 06/25/2018 18:34 [facility] PLT 72(L) 141 - 377 K/cmm 06/25/2018 18:34 [facility] MPV 9.2(L) 9.5 - 12.7 fl 06/25/2018 18:34 [facility] Blood specimen (specimen) BLOOD SPECIMEN / Unknown 06/25/2018 18:06 EDT 06/25/2018 18:26 EDT Terrie Givens MD HEMATOLOGY & PF4 ORD ERABLES Performing Organization Address City/State/[facility] Co de Phone Number [facility] [address] [place] [id number] * (ABNORMAL) COMPLETE BLOOD COUNT (06/25/2018 14:18 EDT) WBC 4.18 4.0 - 10.4 K/cmm 06/25/2018 14:48 [facility] RBC 2.20(L) 4.36 - 5.78 M/cmm 06/25/2018 14:48 [facility] Hemoglobin 7.4(L) 13.8 - 17.3 gm/dl 06/25/2018 14:48 [facility] HCT 20.5(LL) 39.5 - 50.2 % 06/25/2018 14:48 [facility] MCV 93 81 - 95 fl 06/25/2018 14:48 [facility] MCH 33.6(H) 27.6 - 33.0 pg 06/25/2018 14:48 [facility] MCHC 36.1 32.8 - 36.4 gm/dl 06/25/2018 14:48 [facility] RDW-CV 15.6(H) <14.2 % 06/25/2018 14:48 EDT [facility] RDW-SD 50.7(H) <46.0 fl 06/25/2018 14:48 EDT [facility] PLT 77(L) 141 - 377 K/cmm 06/25/2018 14:48 EDT [facility] MPV 9.4(L) 9.5 - 12.7 fl 06/25/2018 14:48 EDT [facility] Blood specimen (specimen) BLOOD SPECIMEN / Unknown 06/25/2018 14:18 EDT 06/25/2018 14:32 EDT Marianna Browne MD HEMATOLOGY & PF4 ORDERABLES [facility] [address] [place] [address] * PREPARE RED BLOOD CELLS (06/25/2018 10:32 EDT) Product Code [id number] [facility] Donor Number [id number] U [facility] Rh POS [facility] Unit Status TR^Transfuse [facility] Product Expiration Date [id number] [facility] Unit Blood Type Code 6200 [facility] Coding System [id number] [facility] Blood specimen (specimen) 06/25/2018 10:32 EDT Terrie Givens MD BLOOD BANK ORDERABLE S [facility] * CREATININE (06/25/2018 5:22 EDT) Creatinine 0.86 0.66 - 1.25 mg/dl 06/25/2018 6:24 EDT [facility] GFR, Calculated 91 >60 ml/min/1.7 3m2 06/25/2018 6:24 EDT [facility] Comment: eGFR calculated using CKD-EPI equation for non Americans. Multiply eGFR by 1.16 for Americans. Blood specimen (specimen) BLOOD SPECIMEN / Unknown 06/25/2018 5:22 EDT 06/25/2018 5:56 EDT Terrie Givnes MD CHEMISTRY & BLOOD GA S ORDERABLES Performing Organization Address [facility] [[email or web address]] de Phone Number [facility] [address] [place] [address] * (ABNORMAL) ELECTROLYTES (06/25/2018 5:22 EDT) Sodium 141 136 - 145 mEq/L 06/25/2018 6:24 T [facility] Potassium 4.3 3.5 - 5.0 mEq/L 06/25/2018 6:24 T [facility] Chloride 113(H) 96 - 110 mEq/L 06/25/2018 6:24 T [facility] CO2 24 22 - 32 mEq/L 06/25/2018 6:24 T [facility] Blood specimen (specimen) BLOOD SPECIMEN / Unknown 06/25/2018 5:22 EDT 06/25/2018 5:56 EDT Terrie Givens MD CHEMISTRY & BLOOD GA S ORDERABLES Performing Organization Address [facility] [[email or web address]] de Phone Number [facility] [address] [place] [address] * (ABNORMAL) COMPLETE BLOOD COUNT (06/25/2018 5:22 EDT) WBC 4.33 4.0 - 10.4 K/cmm 06/25/2018 6:07 [facility] RBC 2.66(L) 4.36 - 5.78 M/cmm 06/25/2018 6:07 [facility] Hemoglobin 9.1(L) 13.8 - 17.3 gm/dl 06/25/2018 6:07 [facility] HCT 24.7(L) 39.5 - 50.2 % 06/25/2018 6:07 T [facility] MCV 93 81 - 95 fl 06/25/2018 6:07 T [facility] MCH 34.2(H) 27.6 - 33.0 pg 06/25/2018 6:07 [facility] MCHC 36.8(H) 32.8 - 36.4 gm/dl 06/25/2018 6:07 T [facility] RDW-CV 15.3(H) <14.2 % 06/25/2018 6:07 T [facility] RDW-SD 50.0(H) <46.0 fl 06/25/2018 6:07 [facility] PLT 93(L) 141 - 377 K/cmm 06/25/2018 6:07 [facility] MPV 9.3(L) 9.5 - 12.7 fl 06/25/2018 6:07 T [facility] Blood specimen (specimen) BLOOD SPECIMEN / Unknown 06/25/2018 5:22 EDT 06/25/2018 5:56 EDT Terrie Givens MD HEMATOLOGY & PF4 ORD ERABLES [facility] [address] [place] [address] * ALT (06/25/2018 5:22 EDT) ALT 27 21 - 72 U/L 06/25/2018 6:24 EDT [facility] Blood specimen (specimen) BLOOD SPECIMEN / Unknown 06/25/2018 5:22 EDT 06/25/2018 5:56 EDT Terrie Givens MD CHEMISTRY & BLOOD GA S ORDERABLES Performing Organization Address [facility] Co de Phone Number [facility] [address] [place] [address] * AST (06/25/2018 5:22 EDT) AST 21 15 - 46 U/L 06/25/2018 6:24 EDT [facility] Blood specimen (specimen) BLOOD SPECIMEN / Unknown 06/25/2018 5:22 EDT 06/25/2018 5:56 EDT Terrie Givens MD CHEMISTRY & BLOOD GA S ORDERABLES Performing Organization Address [facility] Co de Phone Number [facility] [address] [place] [address] * ALKALINE PHOSPHATASE (06/25/2018 5:22 EDT) Total Alkaline Phosphatase 45 38 - 126 U/L 06/25/2018 6:24 EDT [facility] Blood specimen (specimen) BLOOD SPECIMEN / Unknown 06/25/2018 5:22 EDT 06/25/2018 5:56 EDT Terrie Givens MD CHEMISTRY & BLOOD GA S ORDERABLES Performing Organization Address [facility] Co de Phone Number [facility] [address] [place] [address] * (ABNORMAL) BILIRUBIN, TOTAL (06/25/2018 5:22 EDT) Bilirubin, Total 1.8(H) <1.4 mg/dl 06/25/2018 6:24 EDT [facility] Blood specimen (specimen) BLOOD SPECIMEN / Unknown 06/25/2018 5:22 EDT 06/25/2018 5:56 EDT Terrie Givens MD CHEMISTRY & BLOOD GA S ORDERABLES Performing Organization Address [facility] Co de Phone Number [facility] [address] [place] [address] * TRANSFUSE RED BLOOD CELLS (06/25/2018 4:42 EDT) Blood specimen (specimen) Rabia Adorno DO NURSING TREATMENT - BLOOD ADMINISTRATION * RAD US DOPPLER VISCERAL (06/24/2018 23:12 EDT) Anatomical Region Laterality Modality Other 06/24/2018 23:1 2 EDT 06/25/2018 12:30 EDT Narrative 06/25/2018 12:30 EDT Technique: Grayscale, cine, color Doppler, and spectral tracing images of the liver were performed. Comparison: Evaluation 11/09/2016 Findings: The liver is of heterogeneous echotexture, measuring 14.7 cm, with surface contour nodularity No focal hepatic mass is identified. ?? No ascites identified. No varices identified. No recanalized paraumbilical vein.. Doppler evaluation of the following vessels was performed: Main Portal Vein proximal to the shunt: 25 cm/sec Proximal shunt: 22.4 cm/sec Mid shunt: 70.5 cm/sec Distal shunt: 65.9 cm/sec Right hepatic vein (immediately outside of TIPS): 71.1 cm/s Right Portal Vein: Not visualized Left Portal Vein: Not visualized Vessel Diameters: Main Portal Vein: Tidal Resp 11.2 cm Inferior Vena Cava: Tidal Resp 2.1 cm Impression: 1. Normal flow and velocities through the TIPS. I have personally reviewed the images and the above interpretation and agree with the findings. Procedure Note Markos Mandujano MD, MD - 06/25/2018 Technique: Grayscale, cine, color Doppler, and spectral tracing images of the liver were performed. Comparison: Evaluation 11/09/2016 Findings: The liver is of heterogeneous echotexture, measuring 14.7 cm, with surface contour nodularity No focal hepatic mass is identified. No ascites identified. No varices identified. No recanalized paraumbilical vein.. Doppler evaluation of the following vessels was performed: Main Portal Vein proximal to the shunt: 25 cm/sec Proximal shunt: 22.4 cm/sec Mid shunt: 70.5 cm/sec Distal shunt: 65.9 cm/sec Right hepatic vein (immediately outside of TIPS): 71.1 cm/s Right Portal Vein: Not visualized Left Portal Vein: Not visualized Vessel Diameters: Main Portal Vein: Tidal Resp 11.2 cm Inferior Vena Cava: Tidal Resp 2.1 cm Impression: 1. Normal flow and velocities through the TIPS. I have personally reviewed the images and the above interpretation and agree with the findings. Rabia Adorno DO IMG US ORDERABLES * PREPARE RED BLOOD CELLS (06/24/2018 19:17 EDT) Product Code [id number] [facility] Donor Number [id number] U [facility] BLO[facility] Unit ABO A [facility] Unit Rh POS [facility] Unit Status RE^Released From [employer]match [facility] Product Expiration Date [id number] [facility] Unit Blood Type Code 6200 [facility] Coding System [id number] [facility] 06/24/2018 19:1 7 EDT Terrie Givens MD BLOOD BANK ORDERABLE S [facility] * PREPARE RED BLOOD CELLS (06/24/2018 19:17 EDT) Product Code [id number] [facility] Donor Number [id number] U [facility] BLOOD [facility] Unit ABO A [facility] Unit Rh POS [facility] Unit Status RX^Transfused With Reaction [facility] Product Expiration Date [id number] [facility] Unit Blood Type Code 6200 [facility] Coding System [id number] [facility] Blood specimen (specimen) 06/24/2018 19:17 EDT Terrie Givens MD BLOOD BANK ORDERABLE S [facility] * PREPARE RED BLOOD CELLS (06/24/2018 18:31 EDT) Product Code [id number] [facility] Donor Number [id number] U [facility] Unit ABO A [facility] Unit Rh POS [facility] Unit Status TR^Transfuse [facility]LO[facility] Product Expiration Date [id number] [facility] Unit Blood Type Code 6200 [facility] Coding System [id number] [facility] 06/24/2018 18:3 1 EDT Karrie Quesada MD MSc BLOOD BANK ORDER CLAUDIO Performing Organization Address City/[facility]/ZIP Co de Phone Number [facility] * SMEAR REVIEW (06/24/2018 17:28 EDT) Smear scan only: Slide was examined by a technologist to verify the WBC and/or platelet count. 06/24/2018 18:12 EDT [facility] BLOOD SPECIMEN / Unknown 06/24/2018 17:28 EDT 06/24/2018 17:40 EDT Terrie Givens MD HEMATOLOGY & PF4 ORD ERABLES Performing Organization Address [facility] Co de Phone Number [facility] [address] [place] [address] * (ABNORMAL) PROTIME (06/24/2018 17:28 EDT) Pro Time 15.1(H) 10.3 - 13.4 secs 06/24/2018 18:06 EDT [facility] I.N.R. 1.3(H) 0.9 - 1.1 Ratio 06/24/2018 18:06 EDT [facility] Comment: Moderate Intensity Coumadin INR = 2.0-3.0 Adjustments in anticoagulant therapy dose should be based upon the INR and NOT the Pro Time. Blood specimen (specimen) BLOOD SPECIMEN / Unknown 06/24/2018 17:28 EDT 06/24/2018 17:40 EDT Terrie Givens MD HEMATOLOGY & PF4 ORD ERABLES Performing Organization Address City/[facility] Co de Phone Number [facility] [address] [place] [address] * MAGNESIUM (06/24/2018 17:28 EDT) Pathologist [facility] Magnesium 1.9 1.7 - 2.8 mg/dl 06/24/2018 18:08 EDT [facility] Blood specimen (specimen) BLOOD SPECIMEN / Unknown 06/24/2018 17:28 EDT 06/24/2018 17:40 EDT Terrie Givens MD CHEMISTRY & BLOOD GA S ORDERABLES Performing Organization Address City/[facility] Co de Phone Number [facility] [address] [place] [address] * LACTIC ACID (06/24/2018 17:28 EDT) Pathologist [facility] Lactic Acid 1.4 <2.0 mmol/L 06/24/2018 18:08 T [facility] Blood specimen (specimen) BLOOD SPECIMEN / Unknown 06/24/2018 17:28 EDT 06/24/2018 17:40 EDT Terrie Givens MD CHEMISTRY & BLOOD GA S ORDERABLES Performing Organization Address [facility] Co de Phone Number [facility] [address] [place] [address] * (ABNORMAL) COMPLETE BLOOD COUNT (06/24/2018 17:28 EDT) [facility] WBC 5.42 4.0 - 10.4 K/cmm 06/24/2018 18:11 [facility] RBC 2.50(L) 4.36 - 5.78 M/cmm 06/24/2018 17:55 [facility] Hemoglobin 8.5(L) 13.8 - 17.3 gm/dl 06/24/2018 17:55 [facility] HCT 23.5(L) 39.5 - 50.2 % 06/24/2018 17:55 [facility] MCV 94 81 - 95 fl 06/24/2018 17:55 [facility] MCH 34.0(H) 27.6 - 33.0 pg 06/24/2018 17:55 [facility] MCHC 36.2 32.8 - 36.4 gm/dl 06/24/2018 17:55 EDT [facility] RDW-CV 13.9 <14.2 % 06/24/2018 17:55 EDT [facility] RDW-SD 46.5(H) <46.0 fl 06/24/2018 17:55 EDT [facility] PLT 91(L) 141 - 377 K/cmm 06/24/2018 18:11 EDT [facility] MPV 9.3(L) 9.5 - 12.7 fl 06/24/2018 18:11 EDT [facility] Blood specimen (specimen) BLOOD SPECIMEN / Unknown 06/24/2018 17:28 EDT 06/24/2018 17:40 EDT Terrie Givens MD HEMATOLOGY & PF4 ORD ERABLES Performing Organization Address [facility] Co de Phone Number [facility] [address] [place] [phone] * ANTIBODY IDENTIFICATION (06/24/2018 17:21 EDT) Antibody Identification Anti-E Anti-c (little) [facility] 06/24/2018 17:2 1 EDT Terrie Givens MD BLOOD BANK TESTS Performing Organization Address City/[facility]/ZIP Co de Phone Number [facility] * TYPE AND SCREEN (06/24/2018 17:21 EDT) ABO A [facility] Rh Factor Positive [facility] Antibody Screen Positive [facility] Specimen Expires: 06/27/2018 @ 23:59 [facility] 06/24/2018 17:2 1 EDT Terrie Givens MD BLOOD BANK TESTS Performing Organization Address City/[facility]/ZIP Co de Phone Number [facility] * EKG 12-LEAD (06/24/2018 17:18 EDT) 06/24/2018 17:1 8 EDT Narrative [facility] EKG - 06/26/2018 17:10 EDT ? [facility] ? Test Date: ?2018-06-24 Pat Name: ? ALMA CARBALLO ?Department: ?? [address] ? Room: ? SB466 Gender: ? Male ? Dry Pan Feeder: ?? [id number] : ?1955 ? Requested By: GIVENS TERRIE Order Number: [id number] ? Reading MD: ?? CHIRAG SCOTT MD ? Measurements Intervals ?[place] ? Rate: ? 65 ? P: ?19 NV: ? 164 ?QRS: ?1 QRSD: ? 77 ? T: ?76 QT: ? 416 ? QTc: ?433 ? Interpretive Statements SINUS RHYTHM NONSPECIFIC T-WAVE ABNORMALITY No previous ECG available for comparison I reviewed the tracing and have either agreed or edited the findings in this report. Electronically Signed On 06-26-2018 17:10:06 EDT by CHIRAG SCOTT MD. Procedure Note Chirag Scott MD - 06/26/2018 [facility] Test Date: 2018-06-24 Pat Name: ALMA CARBALLO Department: [address] Room: SB466 Gender: Male Dry Pan Feeder: [id number] : 1955 Requested By: TOSHA FALCON Order Number: [id number] Jimmie MD: CHIRAG SCOTT MD Measurements Intervals [place] Rate: 65 P: 19 NV: 164 QRS: 1 QRSD: 77 T: 76 QT: 416 QTc: 433 Interpretive Statements SINUS RHYTHM NONSPECIFIC T-WAVE ABNORMALITY No previous ECG available for comparison I reviewed the tracing and have either agreed or edited the findings inthis report. Electronically Signed On 06-26-2018 17:10:06 EDT by CHIRAG STEVENSON. Terrie Givens MD CARDIAC ECG ORDERABL ES [facility] EKG documented in this encounter Visit Diagnoses Diagnosis Duodenal ulcer with hemorrhage- Primary Chronic or unspecified duodenal ulcer with hemorrhage, without mention of obstruction Hepatic cirrhosis, unspecified hepatic cirrhosis type, unspecified whether ascites present (HCC-CMS) Gastrointestinal hemorrhage with melena Acute blood loss anemia Acute posthemorrhagic anemia Duodenal ulcer with hemorrhage Chronic or unspecified duodenal ulcer with hemorrhage, without mention of obstruction Acute blood loss anemia Acute posthemorrhagic anemia Cirrhosis of liver (HCC-CMS) Cirrhosis of liver without mention of alcohol documented in this encounter Administered Medications Inactive Administered Medications - up to 3 most recent administrations Medication Order MAR Action Action Date Dose Rate Site acetaminophen (TYLENOL) tablet 500 mg 500 mg, oral, EVERY 6 HOURS PRN, Starting on Tue06/25/18 at 0531, Until Tue07/02/18 at 1547, Pain, Fever, Routine Given 07/02/2018 8:16 EDT 500 mg Given 07/02/2018 2:08 EDT 500 mg Given 07/01/2018 20:53 EDT 500 mg atropine 0.1 mg/mL syringe 0.25-1 mg 0.25-1 mg, intravenous, PRN, 1 dose, Starting on Tue06/26/18 at 1241, Until Tue07/02/18 at 1547, Symptomatic HR < 50, Routine, Intraprocedure Benzocaine 20 % aerosol spray oral, EVERY 6 HOURS PRN, Starting on Tue06/27/18 at 1434, Until Tue07/02/18 at 1547, Pain, Throat Pain/NG Pain benzocaine-menthol (CEPACOL) 15-3.6 mg per lozenge 1 lozenge 1 Lozenge, buccal, PRN, Starting on Tue06/26/18 at 1952, Until Tue07/02/18 at 1547, Pain, Routine Given 06/26/2018 20:47 EDT 1 Lozenge cefTRIAXone (ROCEPHIN) 1,000 mg in sodium chloride (NS MBP) 50 mL IVPB 1,000 mg, intravenous, Administer over 30 Minutes, EVERY 24 HOURS, 7 doses, First dose on Tue06/24/18 at 1630, Last dose on Tue06/30/18 at 1630, Routine Given 06/30/2018 17:11 EDT 1,000 mg Given 06/29/2018 16:50 EDT 1,000 mg Given 06/28/2018 17:31 EDT 1,000 mg fentaNYL citrate (PF) injection 25-250 mcg 25-250 mcg, intravenous, ONCE PRN, 1 dose, Starting on Tue06/30/18 at 1208, Until Tue06/30/18 at 1310, Other, Radiology Procedure, Routine, Intraprocedure Given 06/30/2018 13:10 EDT 75 mcg flumazenil (ROMAZICON) injection 0.2 mg 0.2 mg, intravenous, PRN, Starting on Tue06/26/18 at 1241, Until Tue07/02/18 at 1547, benzodiazepine reversal, Routine, Intraprocedure lactated ringers (LR) infusion at 100 mL/hr, 1,000 mL, intravenous, CONTINUOUS, Starting on Tue06/25/18 at 1100, Until Tue06/25/18 at 1417, Routine New Bag 06/25/2018 11:01 EDT 1,000 mL 100 mL/h r lactated ringers (LR) infusion at 150 mL/hr, 1,000 mL, intravenous, CONTINUOUS, Starting on Tue06/25/18 at 1445, Until Tue06/25/18 at 2038, Routine New Bag 06/25/2018 18:31 EDT 1,000 mL 150 mL/h r New Bag 06/25/2018 14:23 EDT 1,000 mL 150 mL/hr lactated ringers (LR) infusion 30 mL/hr, intravenous, CONTINUOUS, Starting on Tue06/26/18 at 1300, Until Tue07/02/18 at 1547, Routine, Preprocedure Rate Documented 06/27/2018 8:52 EDT 30 mL/hr 30 mL/hr New Bag 06/26/2018 15:40 EDT 30 mL/hr 30 mL/hr lactulose (CHRONULAC) 20 gram/30 mL solution 30 mL 30 mL, oral, EVERY 6 HOURS, First dose on 07/01/18 at 1200, Until Discontinued, Routine meperidine (PF) (DEMEROL) injection 25-200 mg 25-200 mg, intravenous, ONCE PRN, 1 dose, Starting on Tue06/26/18 at 1241, Until Tue06/26/18 at 1328, Other, sedation, Routine, Intraprocedure Given 06/26/2018 13:28 EDT 75 mg midazolam (MDV) (VERSED) injection 1-10 mg 1-10 mg, intravenous, ONCE PRN, 1 dose, Starting on 06/26/19 at 1241, Until 06/26/18 at 1328, Sedation, Routine, Intraprocedure Given 06/26/2018 13:28 EDT 5 mg midazolam (PF) (VERSED) injection 0.5-10 mg 0.5-10 mg, intravenous, ONCE PRN, 1 dose, Starting on 06/30/18 at 1208, Until 06/30/18 at 1309, Sedation, Routine, Intraprocedure Given 06/30/2018 13:09 EDT 2.5 mg exmuddv-rcftniqji-mnnmgkzpirvdfde (MAGIC MOUTHWASH) oral suspension 15 mL 15 mL, oral, NOW X1, 1 dose, On 06/26/18 at 2045, STAT Given 06/26/2018 20:46 EDT 15 mL naloxone (NARCAN) injection 0.4 mg 0.4 mg, intravenous, PRN, Starting on 06/26/18 at 1241, Until 07/02/18 at 1547, Opioid Reversal, Routine, Intraprocedure octreotide (SANDOSTATIN) 500 mcg in sodium chloride (NS) 0.9 % 250 mL infusion 50 mcg/hr (25 mL/hr), intravenous, CONTINUOUS, Starting on 06/24/18 at 1630, Until 06/26/18 at 1522, Routine New Bag 06/26/2018 12:08 EDT 50 mcg/hr 25 mL/hr Rate Change 06/26/2018 8:36 EDT 50 mcg/hr 25 mL/hr New Bag 06/26/2018 2:05 EDT 50 mcg/hr 25 mL/hr ondansetron (ZOFRAN-ODT) disintegrating tablet 4 mg 4 mg, oral, EVERY 6 HOURS PRN, Starting on 06/25/18 at 0300, Until 07/02/18 at 1547, Nausea, Routine Given 06/25/2018 15:50 EDT 4 mg Given 06/25/2018 3:21 EDT 4 mg oxyCODONE (ROXICODONE) immediate release tablet 2.5 mg 2.5 mg, oral, EVERY 6 HOURS PRN, Starting on Dayan 06/29/18 at 2315, Until 07/01/18 at 2048, Pain, Routine Given 07/01/2018 8:16 EDT 2.5 mg Given 07/01/2018 0:28 EDT 2.5 mg Given 06/30/2018 14:14 EDT 2.5 mg oxyCODONE (ROXICODONE) immediate release tablet 5 mg 5 mg, oral, NOW X1, 1 dose, On 06/25/18 at 0545, Routine Given 06/25/2018 16:04 EDT 5 mg oxyCODONE (ROXICODONE) immediate release tablet 5 mg 5 mg, oral, NOW X1, 1 dose, On Tue06/25/18 at 0615, Routine Given 06/25/2018 6:15 EDT 5 mg oxyCODONE (ROXICODONE) immediate release tablet 5 mg 5 mg, oral, NOW X1, 1 dose, On Tue06/26/18 at 2315, Routine Given 06/26/2018 22:59 EDT 5 mg oxyCODONE (ROXICODONE) immediate release tablet 5 mg 5 mg, oral, NOW X1, 1 dose, On Tue06/27/18 at 0900, Routine Given 06/27/2018 8:54 EDT 5 mg oxyCODONE (ROXICODONE) immediate release tablet 5 mg 5 mg, oral, EVERY 4 HOURS PRN, Starting on Tue06/27/18 at 1529, Until Tue06/29/18 at 2306, Pain, Routine Given 06/29/2018 6:31 EDT 5 mg Given 06/29/2018 2:43 EDT 5 mg Given 06/28/2018 21:51 EDT 5 mg pantoprazole (PROTONIX) injection 40 mg 40 mg, intravenous, 2 TIMES DAILY, First dose (after last modification) on 06/24/18 at 1800, Until Discontinued, Routine Given 06/29/2018 8:34 EDT 40 mg Given 06/28/2018 21:02 EDT 40 mg Given 06/28/2018 10:10 EDT 40 mg pantoprazole (PROTONIX) tablet 40 mg 40 mg, oral, 2 TIMES DAILY, First dose on Dayan 06/29/18 at 2100, Until Discontinued, Routine Given 07/02/2018 8:16 EDT 40 mg Given 07/01/2018 20:53 EDT 40 mg Given 07/01/2018 8:16 EDT 40 mg rifAXImin (XIFAXAN) tablet 550 mg 550 mg, oral, 2 TIMES DAILY, 17 doses, First dose on 06/24/18 at 2015, Last dose on 07/02/18 at 2100, Routine Given 07/01/2018 8:16 EDT 550 mg Given 06/30/2018 22:20 EDT 550 mg Given 06/30/2018 14:14 EDT 550 mg sodium chloride 0.9 % flush 3 mL 3 mL, intravenous, PRN, Starting on 06/26/18 at 1241, Until 07/02/18 at 1547, Line Care, Routine, Preprocedure documented in this encounter Discontinued Medications Medication Sig Discontinue Reason Start Date End Da te buPROPion (WELLBUTRIN XL) 300 mg XL tablet Take 300 mg by mouth daily. Error 06/24/2018 LISINOPRIL ORAL Take 100 mg by mouth. Error 06/24/2018 nadolol (CORGARD) 40 mg tablet Take 40 mg by mouth daily. 06/24/2018 documented as of this encounter Historical Medications * This list may reflect changes made after this encounter. Medication Sig Dispensed Refills Start Date End Date LACTULOSE ORAL Take by mouth. 09/12/2018 nadolol (CORGARD) 40 mg tablet Take 40 mg by mouth daily. 06/24/2018 added in this encounter Active and Recently Administered Medications Times are shown in EDT. Scheduled Medication Order 06/30/2018 07/01/2018 07/02/2018 cefTRIAXone (ROCEPHIN) 1,000 mg in sodium chloride (NS MBP) 50 mL IVPB (COMPLETED) 1,000 mg, intravenous, Administer over 30 Minutes, EVERY 24 HOURS, 7 doses, First dose on 06/24/18 at 1630, Last dose on Tue06/30/18 at 1630, Routine 1711 (Given - Provider: Gonzalo Hensley, RN) lactulose (CHRONULAC) 20 gram/30 mL solution 30 mL 30 mL, oral, EVERY 6 HOURS, First dose on 07/01/18 at 1200, Until Discontinued, Routine 1311 (Not Given - Provider: Gonzalo Hensley RN - Reason: Patient/family refused)1750 (Not Given - Provider: Gonzalo Hensley RN - Reason: Patient/family refused)2315 (Not Given - Provider: Elva Queen RN - Reason: Patient/family refused - Comment: pt declined med) 0629 (Not Given - Provider: Elva Queen RN - Reason: Patient/family refused)1220 (Not Given - Provider: Gonzalo Hensley RN - Reason: Patient/family refused) pantoprazole (PROTONIX) tablet 40 mg 40 mg, oral, 2 TIMES DAILY, First dose on Dayan 06/29/18 at 2100, Until Discontinued, Routine 1414 (Given - Provider: Gonzalo Hensley RN)2220 (Given - Provider: Jody García, MELY) 0816 (Given - Provider: Gonzalo Hensley RN)2052 (Given - Provider: Elva Queen RN) 0816 (Given - Provider: Gonzalo Hensley RN) rifAXImin (XIFAXAN) tablet 550 mg (CANCELED) 550 mg, oral, 2 TIMES DAILY, 17 doses, First dose on 06/24/18 at 2015, Last dose on 07/02/18 at 2100, Routine 1414 (Given - Provider: Gonzalo Hensley RN)2220 (Given - Provider: Jody García RN) 0816 (Given - Provider: Gonzalo Hensley RN) Continuous Medication Order 06/30/2018 07/01/2018 07/02/2018 lactated ringers (LR) infusion 30 mL/hr, intravenous, CONTINUOUS, Starting on 06/26/18 at 1300, Until 07/02/18 at 1547, Routine, Preprocedure PRN Medication Order 06/30/2018 07/01/2018 07/02/2018 acetaminophen (TYLENOL) tablet 500 mg 500 mg, oral, EVERY 6 HOURS PRN, Starting on 06/25/18 at 0531, Until 07/02/18 at 1547, Pain, Fever, Routine 1414 (Given - Provider: Gonzalo Hensley RN) 0028 (Given - Provider: Margareth Campos RN)08 (Given - Provider: Gonzalo Hensley RN)2052 (Given - Provider: Elva Queen, MELY) 0208 (Given - Provider: Elva Queen, RN)0816 (Given - Provider: Gonzalo Hensley RN) atropine 0.1 mg/mL syringe 0.25-1 mg 0.25-1 mg, intravenous, PRN, 1 dose, Starting on 06/26/18 at 1241, Until 07/02/18 at 1547, Symptomatic HR < 50, Routine, Intraprocedure Benzocaine 20 % aerosol spray oral, EVERY 6 HOURS PRN, Starting on Tue06/27/18 at 1434, Until Tue07/02/18 at 1547, Pain, Throat Pain/NG Pain benzocaine-menthol (CEPACOL) 15-3.6 mg per lozenge 1 lozenge 1 Lozenge, buccal, PRN, Starting on Tue06/26/18 at 1952, Until Tue07/02/18 at 1547, Pain, Routine fentaNYL citrate (PF) injection 25-250 mcg (COMPLETED) 25-250 mcg, intravenous, ONCE PRN, 1 dose, Starting on Tue06/30/18 at 1208, Until Tue06/30/18 at 1310, Other, Radiology Procedure, Routine, Intraprocedure 1310 (Given - Provider: Karrie Camacho RN - Comment: Given in incremental doses) flumazenil (ROMAZICON) injection 0.2 mg 0.2 mg, intravenous, PRN, Starting on Tue06/26/18 at 1241, Until Tue07/02/18 at 1547, benzodiazepine reversal, Routine, Intraprocedure midazolam (PF) (VERSED) injection 0.5-10 mg (COMPLETED) 0.5-10 mg, intravenous, ONCE PRN, 1 dose, Starting on Tue06/30/18 at 1208, Until Tue06/30/18 at 1309, Sedation, Routine, Intraprocedure 1309 (Given - Provider: Karrie Camacho RN - Comment: Given in incremental doses) naloxone (NARCAN) injection 0.4 mg 0.4 mg, intravenous, PRN, Starting on Tue06/26/18 at 1241, Until Tue07/02/18 at 1547, Opioid Reversal, Routine, Intraprocedure ondansetron (ZOFRAN-ODT) disintegrating tablet 4 mg 4 mg, oral, EVERY 6 HOURS PRN, Starting on Tue06/25/18 at 0300, Until Tue07/02/18 at 1547, Nausea, Routine oxyCODONE (ROXICODONE) immediate release tablet 2.5 mg (CANCELED) 2.5 mg, oral, EVERY 6 HOURS PRN, Starting on Dayan 06/29/18 at 2315, Until 07/01/18 at 2048, Pain, Routine 1414 (Given - Provider: Gonzalo Hensley, RN) 0028 (Given - Provider: Margareth Campos, RN)0816 (Given - Provider: Gonzalo Hensley, RN) sodium chloride 0.9 % flush 3 mL 3 mL, intravenous, PRN, Starting on 06/26/18 at 1241, Until 07/02/18 at 1547, Line Care, Routine, Preprocedure documented in this encounter Orders Medications Ordered That Jamison ht Not Have Been Administered Count Last Ordered Date First Ordered Date lactulose (CHRONULAC) 20 gra m/30 mL solution 30 mL 2 07/01/2018 06/24/2018 nadolol (CORGARD) tablet 40 mg 1 07/01/2018 Benzocaine 20 % aerosol spray 1 06/27/2018 atropine 0.1 mg/mL syringe 0.25-1 mg 1 06/09 diphenhydrAMINE (BENADRYL) injection 25 mg 1 06/26/2018 flumazenil (ROMAZICON) injection 0.2 mg 1 0 06/26/2018 naloxone (NARCAN) injection 0.4 mg 1 2018 sodium chloride 0.9 % flush 3 mL 1 06/27/19 19 oxyCODONE (ROXICODONE) immed iate release tablet 5 mg 1 06/25/2018 pantoprazole (PROTONIX) injection 40 mg 1 0 06/24/2018 propRANolol (INDERAL) tablet 20 mg 1 2018 Diet Count Last Ordered Date First Orde red Date DISCHARGE DIET 1 07/02/2018 Nursing Count Last Ordered Date First Orde red Date ACTIVITY INSTRUCTIONS 2 07/02/2018 BATHING INSTRUCTIONS 1 07/02/2018 DRIVING INSTRUCTIONS 1 07/02/2018 WOUND CARE INSTRUCTIONS 2 07/02/2018 CONTRAINDICATION TO ANTICOAG ULATION THERAPY 1 06/24/2018 INSERT PERIPHERAL IV 1 06/24/2018 VITAL SIGNS 1 06/24/2018 IV Count Last Ordered Date First Orde red Date IV REQUEST 5 06/29/2018 06/24/2018 Admission Count Last Ordered Date First Orde red Date STATUS: INPATIENT ACUTE ADMISSION 1 019 Transfer Count Last Ordered Date First Orde red Date NOTIFY PPS OF DISCHARGE COMPLETE 1 07/03/19 19 CHANGE ATTENDING TO: 1 06/26/2018 PPS NOTIFICATION OF PATIENT ARRIVAL ON UNIT 4 06/26/2018 06/24/2018 PPS NOTIFICATION OF SENDING PATIENT OFF THE UNIT 2 06/24/2018 TRANSFER PATIENT 1 06/24/2018 UR PATIENT STATUS CHANGE 1 06/24/2018 Discharge Count Last Ordered Date First Orde red Date DISCHARGE PATIENT 1 07/02/2018 Legal Count Last Ordered Date First Orde red Date MISCELLANEOUS DISCHARGE INSTRUCTIONS 2 06/10 Transfuse Count Last Ordered Date First Orde red Date TRANSFUSE RED BLOOD CELLS 1 06/24/2018 documented in this encounter Care Teams Passenger Brakeman Relationship Specialty Start Date End Date Laurie Manzo MD PCP - General 05/08/18 03/25/19 documented as of this encounter
--- OUTSIDE RECORDS SUMMARY | 2023-12-21 12:08 | XMS_ITS | Encounter Summary ---
Author Organization [facility] Address [address] [place] [address] Care Team Providers Care Grain Oilseed Or Pasture Farm Worker Name Role Phone Laurie Wiggins MD Primary Care Provider [phone] Reason for Visit * Reason Onset Date Comments Appointment Related 06/14/2018 follow up Encounter Details Date Type Department Care Team (Late st Contact Info) Description 06/14/2018 Telephone [facility] Interventional Radiology - [address] [phone] Guicho Rosales MD [address] [place] [address] [address] [place] [address] Appointment Related (follow up ) Social History Tobacco Use Types Packs/Day [...] * Telephone Encounter - Lizy Hull - 06/14/2018 1700 EST Patient calling IR clinic line to schedule a follow up office visit and ultrasound with Dr. Rosales I explained to the patient that we had been in contact, sent certified letters, tried to reach PCP for follow up without any luck. Confirmed that the second number listed in chart is his primary contact According to patient I really need to see Dr. Rosales, my liver Is acting up. Please please please VICENTA Told him I would request a new order and put on schedule for soonest avialable ultrasound and OV with [facility]. Mr. Urbina verbalized understanding and agrees with Plan of Care. No cognitive barriers were identified during this conversation. He has our contact number to call with questions. Lizy Hull documented in this encounter Plan of Treatment Upcoming Encounters Date Type Department Care Team (Late st Contact Info) Description 01/23/2024 10:00 EDT Office Visit [facility] General Surgery - [address] [phone] Bon Gutierrez MD [address] [place] [address], [address] [place] [phone] 09/10/2024 10:00 EDT Appointment [facility]on Ultrasound [address] [place] [address] documented as of this encounter Visit Diagnoses Not on filedocumented in this encounter Care Teams Grain Oil[employer] Or Pasture Farm Worker Relationship Specialty Start Date End Date Laurie Wiggins MD PCP - General 05/08/18 03/25/19 documented as of this encounter
--- OUTSIDE RECORDS SUMMARY | 2023-12-21 12:08 | XMS_ITS | Encounter Summary ---
Author Organization [facility] Address [address] [place] [address] Care Team Providers Care Event Staff Member Name Role Phone Kamala Rosado MD Primary Care Provider [phone] Encounter Details Date Type Department Care Team (Late st Contact Info) Description 11/21/2014 Phlebotomy Only [facility] [address] [place] [address] Farm Products Shipper, Outpatient Chronic hepatitis C without mention of [...] Info) Description 01/23/2024 10:00 EDT Office Visit [facility] General Surgery - [facility] [address] [place], [place] [phone] Bon Gutierrez MD [address] [facility], [address] [place] [address] 09/10/2024 10:00 EDT Appointment Shaina Bergeron Ultrasound [address] [place] [id number] documented as of this encounter Procedures Procedure Name Priority Date/Time Associated Diagnosis Comments HCV RNA DETECT QUANT Routine 11/21/2014 7:25 EDT Chronic hepatitis C without mention of hepatic coma documented in this encounter Results * HCV RNA DETECT QUANT (11/21/2014 7:25 EDT) HCV RNA Detect Quant Undetected IU/mL 11/22/2014 8:08 EDT [facility] Comment: Reference Range: ??Undetected The quantification range of this assay is 15 IU/mL to 100,000,000 IU/mL. Testing was performed by the [employer] Ampliprep/Mili TaqMan HCV v2.0 ([employer] Blood specimen (specimen) BLOOD SPECIMEN / Unknown 11/21/2014 7:25 EDT 11/21/2014 8:43 EDT Brody Duran MD PhD CHEMISTRY & BLO OD GAS ORDERABLES [facility] [address] [place] [address] documented in this encounter Visit Diagnoses Diagnosis Chronic hepatitis C without mention of hepatic coma- Primary documented in this encounter Care Teams Event Staff Member Relationship Specialty Start Date End Date Kamala Rosado MD [address] [address] PCP - General 10/05/13 10/19/15 documented as of this encounter
--- OUTSIDE RECORDS SUMMARY | 2023-12-21 12:08 | XMS_ITS | Encounter Summary ---
Author Organization [facility] Address [address] [place] [address] Care Team Providers Care Client Services Administrator Name Role Phone Elissa Alejo PA-C Primary Care Provider [phone] Reason for Visit * Reason Onset Date Comments Patient Information Update 01/02/2018 Encounter Details Date Type Department Care Team (Late st Contact Info) Description 01/02/2018 Telephone [facility] Interventional Radiology - [facility] [address] [place] [address] Melissa Munroe, RN [address] [place] [address] Patient Information Update Social History Tobacco Use Types Packs/Day Years [...] Telephone Encounter - Melissa Tobin RN - 01/02/2018 0857 EDT Patient is s/p TIPS and [place] out of [place]. Left message with patient requesting who is currentPCP is, so we can update provider with our recommendations for monitoring post procedure. documented in this encounter Plan of Treatment Upcoming Encounters Date Type Department Care Team (Late st Contact Info) Description 01/23/2024 10:00 EDT Office Visit [facility] General Surgery - [address] 1467[address] Bon Gutierrez MD [address] [place] [address], [address] [place] [phone] 09/10/2024 10:00 EDT Appointment Shaina Bergeron [address] [phone] documented as of this encounter Visit Diagnoses Not on filedocumented in this encounter Care Teams Client Services Administrator Relationship Specialty Start Date End Date Elissa Alejo PA-C [address] [place] [address] MD [place] [phone] PCP - General 11/09/16 05/07/18 documented as of this encounter
--- OUTSIDE RECORDS SUMMARY | 2023-12-21 12:08 | XMS_ITS | Encounter Summary ---
Author Organization [facility] Address [address] [place] [address] Care Team Providers Care Cut Off Saw Grader Name Role Phone Kamala Rosado MD Primary Care Provider [phone] Encounter Details Date Type Department Care Team (Late st Contact Info) Description 02/18/2015 7:16 EST - 02/18/2015 23:59 EST Hospital Encounter [address] [address] Guicho Rosales MD [address] [place] [address] 1 [place] [phone] Discharge Disposition: Auto Discharge Social History Tobacco [...] Diagnoses Diagnosis K74.60 Unspecified cirrhosis of liver-K74.60[ICD-10-CM] documented in this encounter Discharge Disposition Disposition Code Departure Means Destination Auto Discharge Home documented in this encounter Plan of Treatment Upcoming Encounters Date Type Department Care Team (Late st Contact Info) Description 01/23/2024 10:00 EDT Office Visit [facility] General Surgery - [address] 560[address] Bon Gutierrez MD 111 [facility], [address] [place] [phone] 09/10/2024 10:00 EDT Appointment Shaina Rubio [id number] [place], [place] 7[address] documented as of this encounter Visit Diagnoses Not on filedocumented in this encounter Care Teams Cut Off Saw Grader Relationship Specialty Start Date End Date Kamala Rosado MD [address] [address] PCP - General 10/05/13 10/19/15 documented as of this encounter
--- OUTSIDE RECORDS SUMMARY | 2023-12-21 12:09 | XMS_ITS | Encounter Summary ---
Author Organization [facility] Address [address] [place] [address] Care Team Providers Care Weatherization Administrator Name Role Phone Kamala Rosado MD Primary Care Provider [phone] Reason for Visit * Reason Comments Follow-up 1 year, pt says he h ad a TIPS procedure Jan 28 Encounter Details Date Type Department Care Team (Late st Contact Info) Description 03/15/2014 13:00 EST [facility] G[facility] - [address] [address] Brody Duran MD PhD 111 [facility], [address] [place] [address] Chronic hepatitis C without mention of hepatic coma (Primary Dx); Cirrhosis of liver (CMS-HCC) (HCC-CMS) Social History Tobacco Use Types Packs/Day [...] Sign Reading Time Taken Comments Blood Pressure 122/64 03/15/2014 1252 EST Pulse 56 03/15/2014 1252 EST Temperature - - Respiratory Rate - - Oxygen Saturation - - Inhaled Oxygen Concentration - - Weight 95.3 kg (210 lb) 03/15/2014 1252 EST Height 162.6 cm (5' 4) 03/15/2014 1252 EST Body Mass Index 36.05 03/15/2014 1252 EST documented in this encounter Functional Status [...] Progress Notes * Brody Duran MD - 03/15/2014 1558 EST [facility] GASTROENTEROLOGY AND HEPATOLOGY PROGRESS / FOLLOWUP NOTE - 03/15/2014 Kamala Rosado MD [address], [facility] [address] [place] [address] Rosado: This is to let you know that I have seen your patient, Alonzo Urbina, in the office today. I spent 25 minutes with him, and at least 15 minutes were devoted to current treatments for hepatitis C. 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 During that evaluation, he had an upper endoscopy, colonoscopy, and capsuleendoscopy, and the only significant findings were nonbleeding esophageal varices and portal hypertensive gastropathy. Because of continued ongoing blood loss, intravenous octreotide was administered,and bleeding stopped. He then underwent placement of a TIPS shunt, and there has been no further gastrointestinal bleeding, nor has there been encephalopathy. 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 Surveillance imaging was recommended in 6 months. Other medical issues include anal discomfort and serous drainage from the anorectal area. Current medications include: Carvedilol 12.5 mg daily. Multivitamins. On physical examination, the patient was found to be an obese white man, weight 210 pounds (BMI 36.05), blood pressure 122/64, pulse 56. The sclerae were clear. Laboratory data obtained on 02/07/2014 show bilirubin 0.7, alkaline phosphatase 112, ALT 68, AST 79, albumin 3.3, creatinine 0.73, serum hepatitis C viral RNA 426,697 International Units/mL. In summary, Mr Urbina has cirrhosis secondary to hepatitis C, which has been complicated by portalhypertensive gastrointestinal bleeding, now controlled status post placement of a TIPS shunt. Thereis no longer a need for carvedilol, and I suggest that you discontinue this. The patient will continue to undergo surveillance imaging of the liver and TIPS through our interventional radiologists here at the [facility]. I am concerned about the possible IPMN, and I suggest that you arrange for CT scan or abdominal MRI in July 2014. If you would prefer for this to be arranged here, please call me directly. There are very good reasons to consider antiviral treatment, as this will prevent the development of liver failure and other complications of cirrhosis. The optimal treatment for genotype 1a hepatitis C is 12 weeks of ledipasvir and sofosbuvir, with a sustained virological response of over 90% and very few adverse effects. I have asked the patient to find out whether there was an initial reduction in viral load when he was treated with peginterferon and ribavirin. If there was no robust viral suppression, the optimal current treatment would be 24 weeks. Once this issue is clarified, I will arrange for the patient to meet with my nurse, Eden Toscano RN, for detailed education about antiviral medication administration and side effect management. Once treatment is initiated, we will determine serum hepatitis C viral RNA at 4 weeks, and I plan to see the patient shortly thereafter to review the results and implications for ongoing management. For anorectal symptoms, a surgical evaluation would be reasonable. If this is not feasible through specialists close to home, I would be happy to facilitate an evaluation with one of our colorectal surgeons. Thank you once again for allowing me to see this patient in consultation with you. Should you have any further questions regarding this evaluation, please feel free to contact me at any time. Sincerely, Brody Duran MD,PhD 01 37 PM - Brody Duran MD,PhD mn Dictation ID: [id number] cc: Kamala Rosado MD, [address], [place] [address] * Brody Duran MD - 03/15/2014 1341 EST This office note has been dictated. documented in this encounter Plan of Treatment Upcoming Encounters Date Type Department Care Team (Late st Contact Info) Description 01/23/2024 10:00 EDT [facility] Visit [facility] General Surgery - [address] [phone] Bon Gutierrez MD [address] [place] [address], [address] [place] [phone] 09/10/2024 10:00 EDT Appointment Shaina Mejia [address] [place] [phone] documented as of this encounter Visit Diagnoses Diagnosis Chronic hepatitis C without mention of hepatic coma- Primary Cirrhosis of liver (HCC-CMS) Cirrhosis of liver without mention of alcohol documented in this encounter Historical Medications * This list may reflect changes made after this encounter. Medication Sig Dispensed Refills Start Date End Date lactulose (CHRONULAC) 20 gram/30 mL solution Take by mouth 3 times daily 45 mL For 7 days . 04/30/2014 added in this encounter Care Teams Weatherization Administrator Relationship Specialty Start Date End Date Kamala Rosado MD NPI: [id number] [place] [address] PCP - General 10/05/13 10/19/15 documented as of this encounter
--- OUTSIDE RECORDS SUMMARY | 2023-12-21 12:09 | XMS_ITS | Encounter Summary ---
Author Organization [facility] Address [address] [place] [address] Care Team Providers Care Orthodontist Assistant Name Role Phone Kamala Rosado MD Primary Care Provider [phone] Unknown, Provider Primary Care Provider [phone] Sari Salgado MD Primary Care Provider [phone] Unknown, Provider Primary Care Provider [phone] Elissa AlejoC Primary Care Provider Laurie Wiggins MD Primary Care Provider [phone] Katia BlancoP Primary Care Provider [phone] George Lou RPA Primary Care Provider [phone] Reason for Visit * Reason Onset Date Comments Hepatitis C 05/01/2014 waiting to hear from nurse regarding tea Encounter Details Date Type Department Care Team (Late st Contact Info) Description 05/01/2014 Telephone [facility] Gastroenterology - [facility] [address] [place] [address] Brody Duran MD PhD 111 [facility], [address] [place] [address] Hepatitis C (waiting to hear from nurse regarding tea) Social History Tobacco Use Types Packs/Day Years [...] Info) Description 01/23/2024 10:00 EDT Office Visit [facility] General Surgery - [address] [address] Bon Gutierrez MD 111 [facility], [address] [place] [phone] 09/10/2024 10:00 EDT Appointment Shaina Bergeron [address] [place] [address] documented as of this encounter Visit Diagnoses Not on filedocumented in this encounter Care Teams Orthodontist Assistant Relationship Specialty Start Date End Date Kamala Rosado MD [address] [address] PCP - General 10/05/13 10/19/15 Unknown, Provider, PCP - General 10/20/15 10/20/15 Sari Salgado MD PCP - General 10/21/15 11/07/16 Unknown, Kristy, PCP - General 11/08/16 11/08/16 Elissa Alejo PA-C [address] [place] [address] [place] [phone] PCP - General 11/09/16 05/07/18 Laurie Wiggins MD [address] [facility] [address] [place] [phone] PCP - General 05/08/18 03/25/19 Katia Blanco FNP [address] [place], [place] [address] PCP - General 03/26/19 09/20/22 George Lou RPA [address] [facility] 1 [place], [place] [address] PCP - General Family Medicine - Primary Care 09/21/22 documented as of this encounter
--- OUTSIDE RECORDS SUMMARY | 2023-12-21 12:09 | XMS_ITS | Encounter Summary ---
Author Organization [facility] Address [address] [place] [address] Care Team Providers Care Radiology Director Name Role Phone Kamala Rosado MD Primary Care Provider [phone] Reason for Visit * Reason Onset Date Comments Medication Management 10/04/2014 Encounter Details Date Type Department Care Team (Late st Contact Info) Description 10/04/2014 Telephone [facility] [place] [address] [address] [facility] Medication Management Social History Tobacco Use Types [...] encounter Miscellaneous Notes * Telephone Encounter - Ct Martinez RPH - 10/04/2014 1133 EDT Reviewed wk20 HCV labs results: as WNL. Patient instructed to continue on therapy, adherence counseling completed. Patient denied fatigue, [place], N/V, fever, SOB, pain, rash Next lab week24 due: 10/30; lab slips re-mailed out to patient as reminder. Patient understood and will comply with above. documented in this encounter Plan of Treatment Upcoming Encounters Date Type Department Care Team (Late st Contact Info) Description 01/23/2024 10:00 EDT Office Visit [facility] General Surgery - [facility] [address] [place], [place] [phone] Bon Gutierrez MD 111 [facility], [address] [place] [phone] 09/10/2024 10:00 EDT Appointment Shaina Mejia [address] [place] [address] documented as of this encounter Visit Diagnoses Not on filedocumented in this encounter Care Teams Radiology Director Relationship Specialty Start Date End Date Kamala Rosado MD [address] [address] PCP - General 10/05/13 10/19/15 documented as of this encounter
--- OUTSIDE RECORDS SUMMARY | 2023-12-21 12:09 | XMS_ITS | Encounter Summary ---
Author Organization [facility] Address [address] [place] [address] Care Team Providers Care Storyboard Artist Name Role Phone Kamala Rosado MD Primary Care Provider [phone] Reason for Referral * Radiology Services (Routine) - Closed Specialty Diagnoses / Procedures [facility] Referred To Contact Diagnoses Cirrhosis (HCC-CMS) Procedures RAD US LIVER WITH DOPPLER Guicho Rosales MD [address] [place] [phone] Referral ID Status Reason Start Date Expiration Date Visits Re quested Visits Authorized [id number] Closed 07/30/2014 1 1 Reason for Visit * Reason Comments Follow-up 3 month s/p TIPS Encounter Details Date Type Department Care Team (Late st Contact Info) Description 07/30/2014 9:00 EDT Office Visit [facility] Interventional Radiology - [address] [id number] Guicho Rosales MD [address] [place] [phone] Cirrhosis (CMS-HCC) (HCC-CMS) (Primary Dx) Social History Tobacco [...] Sign Reading Time Taken Comments Blood Pressure 170/73 07/30/2014914 EDT Pulse 79 07/30/2014914 EDT Temperature - - Respiratory Rate - - Oxygen Saturation - - Inhaled Oxygen Concentration - - Weight 95.3 kg (210 lb) 07/30/2014914 EDT Height 162.6 cm (5' 4) 07/30/2014914 EDT Body Mass Index 36.05 07/30/2014914 EDT documented in this encounter Functional Status [...] OF LIVER NOS[ICD-9-CM] documented in this encounter Patient Instructions * Patient Instructions* Estela Dean - 07/30/2014 9:43 EDT 3 month ultrasound & office visit with Dr. Rosales documented in this encounter Progress Notes * Guicho Rosales MD - 07/30/2014 0947 EDT Subjective: Patient ID: Alonzo Urbina is an 59 y.o. male. Chief Complaint Patient presents with ??? Follow-up 3 month s/p TIPS HPI Mr. 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 He denies any recurrent symptoms and states the TIPS procedure was life changing. He is ecstatic at how well he feels. His mentation is clear. He recently had an MRI scan to look at a small lesion in his pancreas as a 6 month follow up, but those images are not in our system. He is anxious to hear about the results of his duplex ultrasound. Patient Active Problem List Diagnosis ??? Chronic [...] Outpatient Prescriptions Marked as Taking for the 07/30/14 encounter (Office Visit) with Guicho Rosales MD Medication Sig Dispense Refill ??? GLUC/PRANAV-MSM#2/C/D3/MAHESH/BORN (APRVSBKG-[id number]-YSO WITH VIT D ORAL) Take 1 Tab by mouth 2 times daily. ??? ibuprofen (MOTRIN) 200 mg tablet Take 400 mg by mouth every 8 hours as needed for Pain ??? ledipasvir-sofosbuvir (HARVONI) 90-400 mg tablet Take 1 Tab by mouth daily. 28 Tab 5 ??? omeprazole (PRILOSEC) 20 mg capsule Take 20 mg by mouth daily ??? PV W-O ROCK/FERROUS FUMARATE/FA (M-VIT ORAL) Take 1 Tab by mouth daily. Allergies Allergen Reactions ??? Ambien [Zolpidem] Sleep-driving ROS - See HPI Objective: BP 170/73 Pulse 79 Ht 162.6 cm (64) Wt 95.255 kg (210 lb) BMI 36.03 kg/m2 Physical Exam Deferred Duplex ultrasound 07/30/14: Patent TIPS. TIPS velocities up somewhat from April,. Velocities of shunt now range between 100 and 130 cm/sec. Assessment: Plan: Alonzo was seen today for follow-up. Diagnoses and associated orders for this visit: Cirrhosis Other Orders - omeprazole (PRILOSEC) 20 mg capsule; Take 20 mg by mouth daily - ibuprofen (MOTRIN) 200 mg tablet; Take 400 mg by mouth every 8 hours as needed for Pain TIPS duplex ultrasound and IR clinic follow up in 3 months. I spent a total of 25 minutes [...] Info) Description 01/23/2024 10:00 EDT Office Visit [facility] General Surgery - [facility] [address] [place] [address] Bon Gutierrez MD 111 [facility], Level 5 [place] [address] 09/10/2024 10:00 EDT Appointment Shaina Bergeron Ultrasound [address] [place] [address] documented as of this encounter Procedures Procedure Name Priority Date/Time Associated Diagnosis Comments RAD US LIVER WITH DOPPLER Routine 11/12/2014 8:39 EDT Cirrhosis (CMS-HCC) (HCC-CMS) documented in this encounter Results * RAD US LIVER WITH DOPPLER (11/12/2014 8:39 EDT) Anatomical Region Laterality Modality Other 11/12/2014 8:39 EDT 11/12/2014 10:34 EDT Narrative 11/12/2014 10:34 EDT RAD US LIVER WITH DOPPLER ??11/12/2014 8:39 AM Signs and Symptoms/Comments: ??571.5-Cirrhosis of liver without mention of yuiyjsi-KBP-0-CM; TIPS 10/14. ??Needs surveillance ultrasound of TIPS. ??Compare to previous ultrasound studies. Comparison: Liver Doppler ultrasound 07/30/14, 04/30/14. Technique: Static And cine ultrasound images of the liver with Doppler for TIPS followup were obtained, supplemented by Doppler images. Findings: The TIPS is patent. Velocities are as follows: Main portal vein: 51 cm/s, previously 44 cm/s Shunt proximal: 90 cm/s, previously 125 cm/s Shunt mid: 86 cm/s, previously 105 cm/s Shunt distal: 79 cm/s, previously 134 cm/s Right hepatic vein: 96 cm/s, previously 99 cm/s No upper abdominal ascites is identified on current exam. No varices are seen. There is no recanalization of the paraumbilical vein. The spleen The main portal vein is 12.3 mm in diameter, with appropriate direction of flow similar to prior. The liver measures 14 cm. The IVC measures 2.4 cm. Impression: 1. Patent TIPS. 2. Cirrhosis without evidence of liver mass or ascites. ?? I have personally reviewed the images and the above interpretation and agree with the findings. Procedure Note Jose Alvarez MD - 11/12/2014 RAD US LIVER WITH DOPPLER 11/12/2014 8:39 AM Signs and Symptoms/Comments: 571.5-Cirrhosis of liver without mention of ltegejm-WTE-2-CM; TIPS 10/14. Needs surveillance ultrasound of TIPS. Compare to previous ultrasound studies. Comparison: Liver Doppler ultrasound 07/30/14, 04/30/14. Technique: Static And cine ultrasound images of the liver with Doppler for TIPS followup were obtained, supplemented by Doppler images. Findings: The TIPS is patent. Velocities are as follows: Main portal vein: 51 cm/s, previously 44 cm/s Shunt proximal: 90 cm/s, previously 125 cm/s Shunt mid: 86 cm/s, previously 105 cm/s Shunt distal: 79 cm/s, previously 134 cm/s Right hepatic vein: 96 cm/s, previously 99 cm/s No upper abdominal ascites is identified on current exam. No varices are seen. There is no recanalization of the paraumbilical vein. The spleen The main portal vein is 12.3 mm in diameter, with appropriate direction of flow similar to prior. The liver measures 14 cm. The IVC measures 2.4 cm. Impression: 1. Patent TIPS. 2. Cirrhosis without evidence of liver mass or ascites. I have personally reviewed the images and [...] 8 hours as needed for Pain 02/18/2015 omeprazole (PRILOSEC) 20 mg capsule Take 20 mg by mouth daily as needed 02/18/2015 added in this encounter Care Teams Storyboard Artist Relationship Specialty Start Date End Date Kmaala Rosado MD [address] [address] PCP - General 10/05/13 10/19/15 documented as of this encounter
--- OUTSIDE RECORDS SUMMARY | 2023-12-21 12:09 | XMS_ITS | Encounter Summary ---
Author Organization [facility] Address [address] [place] [address] Care Team Providers Care Disintegrator Name Role Phone Kamala Rosado MD Primary Care Provider [phone] Encounter Details Date Type Department Care Team (Latest Contact Info) Description 05/13/2014 Orders Only [facility] Gastroenterology - [facility] [address] [place] [address] Deedee Chairez guest services director hepatitis C without mention of hepatic coma (Primary Dx); Cirrhosis of liver without mention of alcohol Social History Tobacco Use Types Packs/Day Years [...] Description 01/23/2024 10:00 EDT Office Visit [facility] General Surgery - [facility] [address] [place], [place] [address] Bon Gutierrez MD 111 [facility], [address] [place] [phone] 09/10/2024 10:00 EDT Appointment Shaina Bergeron Jackie [address] [place] [phone] documented as of this encounter Results * HCV RNA DETECT QUANT (05/17/2014 11:43 EST) HCV RNA Detect Quant 348,635 IU/mL 05/20/2014 15:05 EST [facility] Comment: Reference Range: ??Undetected The quantification range of this assay is 15 IU/mL to 100,000,000 IU/mL. Testing was performed by the [employer] Ampliprep/Mili TaqMan HCV v2.0 ([employer] Blood specimen (specimen) BLOOD SPECIMEN / Unknown 05/17/2014 11:43 EST 05/17/2014 12:16 EST Brody Duran MD PhD CHEMISTRY & BLO OD GAS ORDERABLES [facility] [address] [place] [address] documented in this encounter Visit Diagnoses Diagnosis Chronic hepatitis C without mention of hepatic coma- Primary Cirrhosis of liver without mention of alcohol documented in this encounter Care Teams Disintegrator Relationship Specialty Start Date End Date Kamala Rosado MD [address] [address] PCP - General 10/05/13 10/19/15 documented as of this encounter
--- OUTSIDE RECORDS SUMMARY | 2023-12-21 12:09 | XMS_ITS | Encounter Summary ---
Author Organization [facility] Address [address] [place] [address] Care Team Providers Care Evaporator Operator Name Role Phone Kamala Rosado MD Primary Care Provider [phone] Encounter Details Date Type Department Care Team (Latest Contact Info) Description 06/06/2014 Orders Only [facility] [address] [place] [address] Deedee Chairez business data analyst hepatitis C without mention of hepatic coma [...] 01/23/2024 10:00 EDT Office Visit [facility] General Surgery [facility] [address] [place], [place] [address] Bon Gutierrez MD 111 [facility], [address] [place] [phone] 09/10/2024 10:00 EDT Appointment Shaina Bergeron [address] [address] documented as of this encounter Results * HCV RNA DETECT QUANT (06/28/2014 9:17 EDT) Pathologist [facility] HCV RNA Detect Quant Undetected IU/mL 07/01/2014 14:54 EDT [facility] Comment: Reference Range: ??Undetected The quantification range of this assay is 15 IU/mL to 100,000,000 IU/mL. Testing was performed by the Mili Ampliprep/Mili TaqMan HCV v2.0 ([employer] Blood specimen (specimen) BLOOD SPECIMEN / Unknown 06/28/2014 9:17 EDT 06/28/2014 9:33 EDT Brody Duran MD PhD CHEMISTRY & BLO OD GAS ORDERABLES [facility] [address] [place] [address] documented in this encounter Visit Diagnoses Diagnosis Chronic hepatitis C without mention of hepatic coma- Primary documented in this encounter Care Teams Evaporator Operator Relationship Specialty Start Date End Date Kamala Rosado MD [address] [address] PCP - General 10/05/13 10/19/15 documented as of this encounter
--- OUTSIDE RECORDS SUMMARY | 2023-12-21 12:09 | XMS_ITS | Encounter Summary ---
Author Organization [facility] Address [address] [place] [address] Care Team Providers Care Street Openings Inspector Name Role Phone Kamala Rosado MD Primary Care Provider [phone] Encounter Details Date Type Department Care Team (Late st Contact Info) Description 08/29/2014 11:19 EDT - 08/29/2014 23:59 EDT Hospital Encounter [address] [address] Unknown, Provider, Brody Duran MD PhD [address] [place] [address], [address] [place] [address] Discharge Disposition: Auto Discharge Social [...] Sig Dispensed Refills Start Date End Date GLUC/PRANAV-MSM#2/C/D3/MAHESH /BORN (VITWKEIO-XNTDIC-OOT WITH VIT D ORAL) Take 1 Tab [...] Take 1 Tab by mouth daily. 11/12/2014 documented as of this encounter Discharge Disposition Disposition Code Departure Means Destination Auto Discharge Home documented in this encounter Plan of Treatment Upcoming Encounters Date Type Department Care Team (Late st Contact Info) Description 01/23/2024 10:00 EDT Office Visit [facility] General Surgery - [facility] [address] [place], [place] [phone] Bon Gutierrez MD 111 [facility], [address] [place] [address] 09/10/2024 10:00 EDT Appointment Shaina Mejia [address] [place] [address] documented as of this encounter Visit Diagnoses Not on filedocumented in this encounter Care Teams Street Openings Inspector Relationship Specialty Start Date End Date Kamala Rosado MD [address] [address] PCP - General 10/05/13 10/19/15 documented as of this encounter
--- OUTSIDE RECORDS SUMMARY | 2023-12-21 12:09 | XMS_ITS | Encounter Summary ---
Author Organization [facility] Address [address] [place] [address] Care Team Providers Care Correctional Officer Sergeant Name Role Phone Kamala Rosado MD Primary Care Provider [phone] Encounter Details Date Type Department Care Team (Late st Contact Info) Description 07/30/2014 7:36 EDT - 07/30/2014 23:59 EDT Hospital Encounter [address] [address] Guicho Rosales MD [address] [place] [address] 1 [place] [phone] Discharge Disposition: Auto Discharge Social History Tobacco [...] Refills Start Date End Date GLUC/PRANAV-MSM#2/C/D3/MAHESH /BORN (JWHRBULX-NQONUE-RSE WITH VIT D ORAL) Take 1 Tab [...] Info) Description 01/23/2024 10:00 EDT Office Visit [facility] General Surgery - [address] [phone] Bon Gutierrez MD [address] [place] [address], [address] [place] [phone] 09/10/2024 10:00 EDT Appointment Shaina Mejia [address] [place] [phone] documented as of this encounter Visit Diagnoses Not on filedocumented in this encounter Care Teams Correctional Officer Sergeant Relationship Specialty Start Date End Date Kamala Rosado MD [address] [address] PCP - General 10/05/13 10/19/15 documented as of this encounter
--- OUTSIDE RECORDS SUMMARY | 2023-12-21 12:09 | XMS_ITS | Encounter Summary ---
Author Organization [facility] Address [address] [place] [address] Care Team Providers Care Assistant Prosecuting Attorney Name Role Phone Kamala Rosado MD Primary Care Provider [phone] Reason for Visit * Reason Onset Date Comments Other 07/17/2014 per ' s letter 03/15 office visit, ? should he have both CT and Abdomen Ultra sound. Encounter Details Date Type Department Care Team (Late st Contact Info) Description 07/17/2014 Telephone [facility] Gastroenterology - [address] [address] Brody Duran MD PhD [address] [place] [address] 5 [place] [address] Other (per 's letter 03/15 office visit, ? should he have both CT and Abdomen Ultra sound. ) Social History Tobacco Use Types Packs/Day [...] encounter Miscellaneous Notes * Telephone Encounter - Eden Toscano RN - 07/17/2014 1531 EDT Clarified with Danny- nurse at PCP,s office that patient does need Ct or MRI ( preferred by ) as recommended for IPMN , She states they will facilitate this. documented in this encounter Plan of Treatment Upcoming Encounters Date Type Department Care Team (Late st Contact Info) Description 01/23/2024 10:00 EDT Office Visit [facility] General Surgery - [facility] [address] [place], [place] [address] Bon Gutierrez MD 111 [facility], [address] [place] [phone] 09/10/2024 10:00 EDT Appointment Shaina Bergeron [address] [place] [address] documented as of this encounter Visit Diagnoses Not on filedocumented in this encounter Care Teams Assistant Prosecuting Attorney Relationship Specialty Start Date End Date Kamala Rosado MD [facility] MEDICINE [address] [address] PCP - General 10/05/13 10/19/15 documented as of this encounter
--- OUTSIDE RECORDS SUMMARY | 2023-12-21 12:09 | XMS_ITS | Encounter Summary ---
Author Organization [facility] Address [address] [place] [address] Care Team Providers Care Corporate Communications Associate Name Role Phone Kamala Rosado MD Primary Care Provider [phone] Unknown, Provider Primary Care Provider [phone] Sari Salgado MD Primary Care Provider [phone] Unknown, Provider Primary Care Provider [phone] Elissa Alejo PA-C Primary Care Provider Laurie Wiggins MD Primary Care Provider [phone] Katia Blanco Primary Care Provider [phone] Encounter Details Date Type Department Care Team (Late st Contact Info) Description 05/15/2014 Orders Only [facility] [address] [place], [place] [phone] Den[address] Social History Tobacco Use Types Packs/Day Years [...] Yes 01/22/2014 documented as of this encounter Ordered Prescriptions Prescription Sig Dispensed Refills Start Date End Da te ledipasvir-sofosbuvir (HARVONI) 90-400 mg tablet Take 1 Tab by mouth daily. 28 Tab 5 05/15/2014 02/18/2015 documented in this encounter Plan of Treatment Upcoming Encounters Date Type Department Care Team (Late st Contact Info) Description 01/23/2024 10:00 EDT Office Visit [facility] General Surgery - [address] [address] Bon Gutierrez MD 111 [facility], [address] [place] [phone] 09/10/2024 10:00 EDT Appointment Shaina Bergeron [address] [address] documented as of this encounter Visit Diagnoses Not on filedocumented in this encounter Care Teams Corporate Communications Associate Relationship Specialty Start Date End Date Kamala Rosado MD [address] [address] PCP - General 10/05/13 10/19/15 Unknown, MD Kristy PCP - General 10/20/15 10/20/15 Sari Salgado MD PCP - General 10/21/15 11/07/16 Unknown, Provider, PCP - General 11/08/16 11/08/16 Elissa Alejo, PA-C [address] [facility] [address] [phone] PCP - General 11/09/16 05/07/18 Laurie Wiggins MD [address] [place] [address] [phone] PCP - General 05/08/18 03/25/19 Katia Blanco FNP [address] [place] [address] PCP - General 03/26/19 09/20/22 documented as of this encounter
--- OUTSIDE RECORDS SUMMARY | 2023-12-21 12:09 | XMS_ITS | Encounter Summary ---
Author Organization [facility] Address [address] [place] [address] Care Team Providers Care Lineman A Class Name Role Phone Kamala Rosado MD Primary Care Provider [phone] Reason for Visit * Reason Comments Follow-up follow up for Yumiko haji, pt states that he's doing well but tired Encounter Details Date Type Department Care Team (Late st Contact Info) Description 09/05/2014 14:00 EDT Office Visit [facility] Gastroenterology - [address] [phone] Brody Duran MD PhD [address] [place] [address] [address] [place] [address] Chronic hepatitis C without mention [...] Sign Reading Time Taken Comments Blood Pressure 100/68 09/05/2014 1351 EDT Pulse - - Temperature - - Respiratory Rate - - Oxygen Saturation - - Inhaled Oxygen Concentration - - Weight 96.2 kg (212 lb) 09/05/2014 1351 EDT Height 162.6 cm (5' 4) 09/05/2014 1351 EDT Body Mass Index 36.39 09/05/2014 1351 EDT documented in this encounter Functional Status [...] NEC W/O COMA W HEP C CHRON[ICD-9-CM] 571.5 CIRRHOSIS OF LIVER NOS[ICD-9-CM] documented in this encounter Progress Notes * Brody Duran MD - 09/05/2014 191 EDT [facility] GASTROENTEROLOGY AND HEPATOLOGY PROGRESS / FOLLOWUP NOTE - 09/05/2014 Kamala Rosado MD [address], [address] [place] [address] Rosado: This is to let you know that I have seen your patient, Alonzo Urbina in the office today. As you know, he is a 59-year-old man with cirrhosis (complicated by portal hypertensive gastrointestinal bleeding requiring placement of a TIPS shunt in January 2014) secondary to chronic hepatitis C (cuqpogpt4x, intolerant of previous peginterferon and ribavirin). He is now on week 13 of a 24-week course of antiviral treatment with ledipasvir and sofosbuvir, which was initiated in May 2014. At 4 andat 12 weeks of treatment, serum hepatitis C viral RNA was not detected. The major side effect of antiviral therapy has been development of significant fatigue and increased appetite. A Doppler ultrasound of the abdomen in July 2014 showed a patent TIPS and no hepatic mass lesions. 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 Current medications include ledipasvir/sofosbuvir (90 mg/400 mg) daily, ibuprofen and omeprazole. On physical examination, the patient was found to be an obese white man, weight 212 pounds, (BMI 36.39), blood pressure 100/68. The sclerae were clear. In summary, Mr Urbina has cirrhosis secondary to chronic hepatitis C with evidence of a rapid virological response to ledipasvir and sofosbuvir. The likelihood of a sustained virological response remains well over 90%. To confirm this, I will arrange for determination of serum hepatitis C viral RNA at the end of treatment and 12 weeks following the end of treatment. I plan to see him shortly thereafter to review the results and implications for ongoing management. The patient remains at risk for the development of hepatocellular carcinoma, and he will continue to undergo Doppler ultrasound as scheduled by our interventional radiologists. For the pancreatic cystic lesion, I suggest that you arrange for surveillance abdominal MRI yearly (next in July 2014). If there is an increase in cyst size, please call me directly. Thank you once again for allowing me to see this patient in consultation with you. Should you have any further questions regarding this evaluation, please feel free to contact me at any time. Sincerely, Brody Duran MD,PhD 03 31 PM - Brody Duran MD,PhD Dictation ID: [id number] cc: Guicho Rosales MD, [facility] - Radiology [address] [place] [address] Kamala Rosado MD, [address], [address], [place] [address] * Brody Duran MD - 09/05/2014 5211 EDT This office note has been dictated. documented in this encounter Plan of Treatment Upcoming Encounters Date Type Department Care Team (Late st Contact Info) Description 01/23/2024 10:00 EDT Office Visit [facility] General Surgery - [facility] [address] [place], [place] [address] Bon Gutierrez MD 111 [facility], [address] [place] [phone] 09/10/2024 10:00 EDT Appointment Shaina Bergeron [phone] [place], [place] [address] documented as of this encounter Visit Diagnoses Diagnosis Chronic hepatitis C without mention of hepatic coma- Primary Cirrhosis of liver (HCC-CMS) Cirrhosis of liver without mention of alcohol documented in this encounter Historical Medications * This list may reflect changes made after this encounter. Medication Sig Dispensed Refills Start Date End Date UNABLE TO FIND Blood pressure medication unknown 11/12/2014 added in this encounter Care Teams Lineman A Class Relationship Specialty Start Date End Date Kamala Rosado MD [address] [address] PCP - General 10/05/13 10/19/15 documented as of this encounter
--- OUTSIDE RECORDS SUMMARY | 2023-12-21 12:09 | XMS_ITS | Encounter Summary ---
Author Organization [facility] Address [address] [place] [address] Care Team Providers Care Hoop Riveter Name Role Phone Kamala Rosado MD Primary Care Provider [phone] Reason for Visit * Reason Comments Hemorrhoids Pt states for a coup le of year with recently worsening symptoms Encounter Details Date Type Department Care Team (Late st Contact Info) Description 05/10/2014 15:00 EST Office Visit [facility] General Surgery - [address] [address] Man Haile MD [address] [place] [address], [address] [place] [address] Rectal bleeding (Primary Dx) Social History Tobacco Use Types [...] Sign Reading Time Taken Comments Blood Pressure 138/86 05/10/2014 1305 EST Pulse 95 05/10/2014 1305 EST Temperature - - Respiratory Rate - - Oxygen Saturation - - Inhaled Oxygen Concentration - - Weight 94.3 kg (208 lb) 05/10/2014 1305 EST Height 162.6 cm (5' 4) 05/10/2014 1305 EST Body Mass Index 35.7 05/10/2014 1305 EST documented in this encounter Functional Status [...] as of this encounter Discharge Diagnoses Diagnosis 569.3 RECTAL + ANAL HEMORRHAGE[ICD-9-CM] documented in this encounter Progress Notes * Man Haile MD - 05/10/2014 1424 EST This office note has been dictated. documented in this encounter Consult Notes * Man Haile MD - 05/11/2014 0141 EST [facility] GENERAL SURGERY CONSULTATION - 05/10/2014 HISTORY OF PRESENT ILLNESS: The patient is a 58-year-old gentleman with rectal bleeding and mucous drainage. Of note, the patient has had hepatitis C and cirrhosis, likely from a blood transfusion during a back operation many, many years ago. He is currently not working. The patient had a TIPS 3 months ago, which was shown to be open by Dr Rosales in an ultrasound recently. He states he feels much better. He has had less black stools. Energy is better and he otherwisefeels relatively well. He has some mucus drainage per rectum after bowel movements and a rare amount of blood. Past medical history, medications, allergies, family history and social history are all reviewed asof today in [facility]. REVIEW OF SYSTEMS: Positive for some fatigue and for the previously mentioned GI symptoms, otherwise negative. PHYSICAL EXAMINATION: Constitutional examination reveals a gentleman who does appear slightly chronically ill. He has a large abdomen. Lungs are clear. Cardiac exam is regular rhythm. Abdomen is soft. There is a diastasis recti. There are no masses, no guarding or rebound. Skin examreveals no rashes. Groin exam reveals no lymphadenopathy. External anal exam reveals no significant external hemorrhoids, fissures, or fistulae. Rectal bleeding, question hemorrhoids. RECOMMENDATION: Anoscopy. Anoscope was inserted right anterior, right posterior and left lateral positions. Moderate internalhemorrhoids in usual 3 locations, larger on the right than the left. IMPRESSION: Grade 2 to 3 internal hemorrhoids. Minimally symptomatic at this time. Predominant symptom is mucus drainage. Natural history of hemorrhoidal disease and its relationship to mucus drainage explained to the patient. I recommend the followin. Avoid prolonged attempts at defecation (patient does read on the commode). 2. The patient is encouraged to wipe up 10 to 15 minutes after a bowel movement, perhaps add baby powder to decrease irritation. 3. Follow up p.r.n. I informed the patient that hemorrhoid banding or other treatment might be relatively risky considering his hepatitis C and cirrhosis. He will follow up with us p.r.n. He is happywith these recommendations. Man Haile MD, FACS 03 11 PM - Man Haile MD, FACS kn Dictation ID: [id number] cc: Kamala Rosado MD, [address], [facility] [address] [address] Brody Duran MD,PhD, [facility] - Gastroenterology [address] [place] [address] documented in this encounter Plan of Treatment Upcoming Encounters Date Type Department Care Team (Late st Contact Info) Description 01/23/2024 10:00 EDT Office Visit [facility] General Surgery - [address] [address] Bon Gutierrez MD [address] [place] [address], [address] [place] [address] 09/10/2024 10:00 EDT Appointment Shaina Bergeron Ultrasound [address] [place] [address] documented as of this encounter Visit Diagnoses Diagnosis Rectal bleeding- Primary Hemorrhage of rectum and anus documented in this encounter Care Teams Hoop Riveter Relationship Specialty Start Date End Date Kamala Rosado MD [address] [address] PCP - General 10/05/13 10/19/15 documented as of this encounter
--- OUTSIDE RECORDS SUMMARY | 2023-12-21 12:09 | XMS_ITS | Encounter Summary ---
Author Organization [facility] Address [address] [place] [address] Care Team Providers Care Property And Equipment Clerk Name Role Phone Kamala Rosado MD Primary Care Provider [phone] Reason for Visit * Reason Onset Date Comments Results 07/02/2014 on Harvoni and w ould like lab results. Encounter Details Date Type Department Care Team (Late st Contact Info) Description 07/02/2014 Telephone [facility] Gastroenterology - [address] [address] Brody Duran MD PhD 111 [facility], [address] [place] [address] Results (on Harvoni and would like lab results.) Social History Tobacco Use Types Packs/Day Years [...] Telephone Encounter - Eden Toscano RN - 07/02/2014 1055 EDT The patient was made aware of week # 3-4 PCR HCV while on treatment with harvoni x 24 weeks- Undetected. He states he is in [facility] with family obligation, cannot make 07/08/14 appointment & will be there for some weeks. He was therefore reminded to have next HCV PCR drawn for week # 12on 08/29/14, a lab slip & appointment card was sent per his request as a reminder. documented in this encounter Plan of Treatment Upcoming Encounters Date Type Department Care Team (Late st Contact Info) Description 01/23/2024 10:00 EDT Office Visit [facility] General Surgery - [address] [phone] Bon Gutierrez MD 111 [facility], [address] [place] [phone] 09/10/2024 10:00 EDT Appointment Shaina Mejia [address] [place] [address] documented as of this encounter Results * HCV RNA DETECT QUANT (08/29/2014 11:24 EDT) HCV RNA Detect Quant Undetected IU/mL 09/03/2014 14:19 EDT [facility] Comment: Reference Range: ??Undetected The quantification range of this assay is 15 IU/mL to 100,000,000 IU/mL. Testing was performed by the Mili Ampliprep/Mili TaqMan HCV v2.0 ([employer] Blood specimen (specimen) BLOOD SPECIMEN / Unknown 08/29/2014 11:24 EDT 08/29/2014 11:44 EDT Brody Duran MD PhD CHEMISTRY & BLO OD GAS ORDERABLES [facility] [address] [place] [address] documented in this encounter Visit Diagnoses Diagnosis Chronic hepatitis C without mention of hepatic coma- Primary documented in this encounter Care Teams Property And Equipment Clerk Relationship Specialty Start Date End Date Kamala Rosado MD [address] [address] PCP - General 10/05/13 10/19/15 documented as of this encounter
--- OUTSIDE RECORDS SUMMARY | 2023-12-21 12:09 | XMS_ITS | Encounter Summary ---
Author Organization [facility] Address [address] [place] [address] Care Team Providers Care Medical Case Manager Name Role Phone Kamala Rosado MD Primary Care Provider [phone] Encounter Details Date Type Department Care Team (Latest Contact Info) Description 05/17/2014 11:38 EST - 05/17/2014 23:59 EST Hospital Encounter [address] [address] Unknown, Provider, Discharge Disposition: Home or Self [...] Refills Start Date End Date GLUC/PRANAV-MSM#2/C/D3/MAHESH /BORN (IWMLHYWN-BWUWGY-APH WITH VIT D ORAL) Take 1 Tab by mouth 2 times daily. 11/12/2014 ledipasvir-sofosbuvir (HARVONI) 90-400 mg tablet Take 1 Tab by mouth daily. 28 Tab 5 05/15/2014 02/18/2015 PV W-O ROCK/FERROUS FUMARATE/FA (M-VIT ORAL) Take 1 Tab by mouth daily. 11/12/2014 documented as of this encounter Discharge Disposition Disposition Code Departure Means Destination Home or Self Custodial documented in this encounter Plan of Treatment Upcoming Encounters Date Type Department Care Team (Late st Contact Info) Description 01/23/2024 10:00 EDT Office Visit [facility] General Surgery - [address] [address] Bon Gutierrez MD 111 [facility], [facility], [address] [place] [phone] 09/10/2024 10:00 EDT Appointment Shaina Bergeron [address] [place], [place] [address] documented as of this encounter Visit Diagnoses Not on filedocumented in this encounter Care Teams Medical Case Manager Relationship Specialty Start Date End Date Kamala Rosado MD [address] [address] PCP - General 10/05/13 10/19/15 documented as of this encounter
--- OUTSIDE RECORDS SUMMARY | 2023-12-21 12:09 | XMS_ITS | Encounter Summary ---
Author Organization [facility] Address [address] [place] [address] Care Team Providers Care Field Instructor Name Role Phone Kamala Rosado MD Primary Care Provider [phone] Encounter Details Date Type Department Care Team (Late st Contact Info) Description 09/04/2014 Phlebotomy Only [facility] [address] [place] [address] Computer Repairer, Outpatient Chronic hepatitis C without mention of [...] Info) Description 01/23/2024 10:00 EDT Office Visit [facility] General Surgery - [facility] [address] [place], [place] [address] Bon Gutierrez MD 111 [facility], [address] 5 [place] [address] 09/10/2024 10:00 EDT Appointment Shaina Bergeron Ultrasound 0 [place] [address] documented as of this encounter Procedures Procedure Name Priority Date/Time Associated Diagnosis Comments PROTIME Routine 09/04/2014 8:56 EDT Chronic hepatitis C without mention of hepatic coma COMPLETE BLOOD COUNT Routine 09/04/2014 8:56 EDT Chronic hepatitis C without mention of hepatic coma COMPREHENSIVE METABOLIC PANEL (CMP) Routine 09/04/2014 8:56 EDT Chronic hepatitis C without mention of hepatic coma documented in this encounter Results * (ABNORMAL) PROTIME (09/04/2014 8:56 EDT) Pro Time 13.4(H) 9.5 - 12.3 secs 09/04/2014 9:32 EDT [facility] I.N.R. 1.2(H) 0.9 - 1.1 Ratio 09/04/2014 9:32 T [facility] Comment: Moderate Intensity Coumadin INR = 2.0-3.0 Adjustments in anticoagulant therapy dose should be based upon the INR and NOT the Pro Time. Blood specimen (specimen) BLOOD SPECIMEN / Unknown 09/04/2014 8:56 EDT 09/04/2014 9:07 EDT Brody Duran MD PhD HEMATOLOGY & PF 4 ORDERABLES [facility] [address] [place] [address] * (ABNORMAL) COMPREHENSIVE METABOLIC PANEL (CMP) (09/04/2014 8:56 EDT) Potassium 4.2 3.5 - 5.0 mEq/L 09/04/2014 11:34 [facility] Sodium 136 136 - 145 mEq/L 09/04/2014 11:34 [facility] Chloride 106 96 - 110 mEq/L 09/04/2014 11:34 [facility] CO2 24 24 - 32 mEq/L 09/04/2014 11:34 [facility] Total Alkaline Phosphatase 95 38 - 126 U/L 09/04/2014 11:34 [facility] Bilirubin, Total 1.6(H) <1.4 mg/dl 09/05/19 15 11:34 [facility] AST 32 15 - 46 U/L 09/04/2014 11:34 [facility] ALT 33 21 - 72 U/L 09/04/2014 11:34 [facility] Albumin 3.2(L) 3.4 - 4.9 g/dl 09/04/2014 11:34 [facility] Total Protein 6.6 6.5 - 8.3 g/dl 09/04/2014 11:34 [facility] Creatinine 0.80 0.66 - 1.25 mg/dl 09/04/2014 11:34 [facility] GFR, Calculated >60 >60 ml/min/1.7 3m2 09/04/2014 11:34 [facility] BUN 15 10 - 26 mg/dl 09/04/2014 11:34 [facility] Calcium 8.7 8.5 - 10.5 mg/dl 09/04/2014 11:34 [facility] Calculated Calcium 9.9 8.5 - 10.5 mg/dl 09/04/2014 11:34 [facility] Glucose, Serum 264(H) 70 - 100 mg/dl 09/04/2014 11:34 [facility] Fasting? No 09/04/2014 8:57 [facility] Blood specimen (specimen) BLOOD SPECIMEN / Unknown 09/04/2014 8:56 EDT 09/04/2014 9:07 EDT Brody Duran MD PhD CHEMISTRY & BLO OD GAS ORDERABLES Performing Organization Address City/State/[facility] Co de Phone Number [facility] [address] [place] [address] * (ABNORMAL) HEMAGRAM (09/04/2014 8:56 EDT) WBC 3.61(L) 4.0 - 10.4 K/cmm 09/04/2014 9:25 [facility] RBC 4.16(L) 4.36 - 5.78 M/cmm 09/04/2014 9:25 [facility] Hemoglobin 13.9 13.8 - 17.3 gm/dl 09/04/2014 9:25 [facility] HCT 38.8(L) 39.5 - 50.2 % 09/04/2014 9:25 [facility] MCV 93 81 - 95 fl 09/04/2014 9:25 [facility] MCH 33.4(H) 27.6 - 33.0 pg 09/04/2014 9:25 [facility] MCHC 35.8 32.8 - 36.4 gm/dl 09/04/2014 9:25 [facility] RDW-CV 14.1 11.8 - 14.1 % 09/04/2014 9:25 [facility] RDW-SD 45.9 36.5 - 45.9 fl 09/04/2014 9:25 [facility] PLT 104(L) 141 - 320 K/cmm 09/04/2014 9:25 [facility] MPV 6.7(L) 7.5 - 11.2 fl 09/04/2014 9:25 [facility] Blood specimen (specimen) BLOOD SPECIMEN / Unknown 09/04/2014 8:56 EDT 09/04/2014 9:07 EDT Brody Duran MD PhD HEMATOLOGY & PF 4 ORDERABLES [facility] [address] [place] [address] documented in this encounter Visit Diagnoses Diagnosis Chronic hepatitis C without mention of hepatic coma- Primary documented in this encounter Care Teams Field Instructor Relationship Specialty Start Date End Date Kamala Rosado MD [address] [address] PCP - General 10/05/13 10/19/15 documented as of this encounter
--- OUTSIDE RECORDS SUMMARY | 2023-12-21 12:09 | XMS_ITS | Encounter Summary ---
Author Organization [facility] Address [address] [place] [address] Care Team Providers Care Bell Ringer Name Role Phone Kamala Rosado MD Primary Care Provider [phone] Unknown, Provider Primary Care Provider [phone] Sari Salgado MD Primary Care Provider [phone] Unknown, Provider Primary Care Provider [phone] Elissa Alejo-C Primary Care Provider Laurie Wiggins MD Primary Care Provider [phone] Katia BlancoP Primary Care Provider [phone] George Lou [facility] Primary Care Provider [phone] Reason for Visit * Reason Onset Date Comments Other 05/22/2014 patient has ques tions regarding hep c new treatment. Just received a denial for med from a mail order company that he thought he no longer had. Encounter Details Date Type Department Care Team (Late st Contact Info) Description 05/22/2014 Telephone [facility] Gastroenterology - [facility] [address] [place] [address] Brody Duran MD PhD 111 [facility], [address] [place] [address] Other (patient has questions regarding hep c new treatment. Just received a denial for med from a mail order company that he thought he no longer had.) Social History Tobacco Use Types Packs/Day Years [...] 01/23/2024 10:00 EDT Office Visit [facility] General Surgery - [address] [id number] Bon Gutierrez MD [address] [place] [address], [address] [place] [phone] 09/10/2024 10:00 EDT Appointment Shaina Bergeron [address] [address] documented as of this encounter Visit Diagnoses Not on filedocumented in this encounter Care Teams Bell Ringer Relationship Specialty Start Date End Date Kamala Rosado MD [address] [address] PCP - General 10/05/13 10/19/15 Unknown, Provider, PCP - General 10/20/15 10/20/15 Sari Salgado MD PCP - General 10/21/15 11/07/16 Unknown, Provider, PCP - General 11/08/16 11/08/16 Elissa Alejo, EDNAC [address] [facility] [address] [place] [address] PCP - General 11/09/16 05/07/18 Laurie Wiggins MD [address] [facility] [address] [place] [address] PCP - General 05/08/18 03/25/19 Katia Blanco FNP [address] [place] [address] PCP - General 03/26/19 09/20/22 George Lou RPA [address] [facility] [address] [place], [place] [address] PCP - General Family Medicine - Primary Care 09/21/22 documented as of this encounter
--- OUTSIDE RECORDS SUMMARY | 2023-12-21 12:09 | XMS_ITS | Encounter Summary ---
Author Organization [facility] Address [address] [place] [address] Care Team Providers Care Supervisor Cook House Name Role Phone Kamala Rosado MD Primary Care Provider [phone] Encounter Details Date Type Department Care Team (Latest Contact Info) Description 06/28/2014 9:12 EDT - 06/28/2014 23:59 EDT Hospital Encounter [facility] [address] [place] [address] Unknown, Provider, Discharge Disposition: Home or Self [...] Refills Start Date End Date GLUC/PRANAV-MSM#2/C/D3/MAHESH /BORN ([id number] WITH VIT D ORAL) Take 1 Tab by mouth 2 times daily. 11/12/2014 ledipasvir-sofosbuvir (HARVONI) 90-400 mg tablet Take 1 Tab by mouth daily. 28 Tab 5 05/15/2014 02/18/2015 PV W-O ROCK/FERROUS FUMARATE/FA (M-VIT ORAL) Take 1 Tab by mouth daily. 11/12/2014 documented as of this encounter Discharge Disposition Disposition Code Departure Means Destination Home or Self Nursing Home documented in this encounter Plan of Treatment Upcoming Encounters Date Type Department Care Team (Late st Contact Info) Description 01/23/2024 10:00 EDT Office Visit [facility] General Surgery - [facility] [address] [place], [place] [address] Bon Gutierrez MD 111 [facility], [address] [place] [phone] 09/10/2024 10:00 EDT Appointment Shaina Bergeron [address] [place], [place] [address] documented as of this encounter Visit Diagnoses Not on filedocumented in this encounter Care Teams Supervisor Cook House Relationship Specialty Start Date End Date Kamala Rosado MD [address] [address] PCP - General 10/05/13 10/19/15 documented as of this encounter
--- OUTSIDE RECORDS SUMMARY | 2023-12-21 12:09 | XMS_ITS | Encounter Summary ---
Author Organization [facility] Address [address] [place] [address] Care Team Providers Care Forestry Technician Name Role Phone Kamala Rosado MD Primary Care Provider Encounter Details Date Type Department Care Team (Late st Contact Info) Description 10/03/2014 8:37 EDT - 10/03/2014 23:59 EDT Hospital Encounter [address] [address] Unknown, Provider, Brody Duran MD PhD [address] [place] [address], [address] [place] [address] Discharge Disposition: Auto Discharge Social [...] Refills Start Date End Date GLUC/PRANAV-MSM#2/C/D3/MA NG/BORN ([id number] WITH VIT D ORAL) Take 1 Tab [...] Info) Description 01/23/2024 10:00 EDT Office Visit [facility] General Surgery - [address] [address] Bon Gutierrez MD 111 [facility], [address] [place] [phone] 09/10/2024 10:00 EDT Appointment Shaina Mejia [address] [place] [phone] documented as of this encounter Visit Diagnoses Not on filedocumented in this encounter Care Teams Forestry Technician Relationship Specialty Start Date End Date Kamala Rosado MD [address] [address] PCP - General 10/05/13 10/19/15 documented as of this encounter
--- OUTSIDE RECORDS SUMMARY | 2023-12-21 12:09 | XMS_ITS | Encounter Summary ---
Author Organization [facility] Address [address] [place] [address] Care Team Providers Care Entry Level Software Developer Name Role Phone Kamala Rosado MD Primary Care Provider [phone] Encounter Details Date Type Department Care Team (Late st Contact Info) Description 10/03/2014 Phlebotomy Only [facility] [address] [place] [address] Double Bottom Driver, Outpatient Chronic hepatitis C without mention of [...] 01/23/2024 10:00 EDT Office Visit [facility] General Surgery - [facility] [address] [place], [place] [address] Bon Gutierrez MD 111 [facility], [address] [place] [address] 09/10/2024 10:00 EDT Appointment Shaina Bergeron Ultrasound [address] [place] [address] documented as of this encounter Procedures Procedure Name Priority Date/Time Associated Diagnosis Comments PROTIME Routine 10/03/2014 8:40 EDT Chronic hepatitis C without mention of hepatic coma COMPLETE BLOOD COUNT Routine 10/03/2014 8:40 EDT Chronic hepatitis C without mention of hepatic coma COMPREHENSIVE METABOLIC PANEL (CMP) Routine 10/03/2014 8:40 EDT Chronic hepatitis C without mention of hepatic coma documented in this encounter Results * PROTIME (10/03/2014 8:40 EDT) Pro Time 12.9 10.1 - 13.0 secs 10/03/2014 9:31 EDT [facility] Comment: New prothrombin t doug range effective 09/17/14 I.N.R. 1.1 0.9 - 1.1 Ratio 10/03/2014 9:31 EDT [facility] Comment: Moderate Intensity Coumadin INR = 2.0-3.0 Adjustments in anticoagulant therapy dose should be based upon the INR and NOT the Pro Time. Blood specimen (specimen) BLOOD SPECIMEN / Unknown 10/03/2014 8:40 EDT 10/03/2014 9:09 EDT Brody Duran MD PhD HEMATOLOGY & PF 4 ORDERABLES [facility] [address] [place] [address] * (ABNORMAL) COMPREHENSIVE METABOLIC PANEL (CMP) (10/03/2014 8:40 EDT) Potassium 4.3 3.5 - 5.0 mEq/L 10/03/2014 9:38 [facility] Sodium 143 136 - 145 mEq/L 10/03/2014 9:38 [facility] Chloride 108 96 - 110 mEq/L 10/03/2014 9:38 [facility] CO2 27 24 - 32 mEq/L 10/03/2014 9:38 [facility] Total Alkaline Phosphatase 103 38 - 126 U/L 10/03/2014 9:38 [facility] Bilirubin, Total 1.6(H) <1.4 mg/dl 10/04/19 15 9:38 [facility] AST 28 15 - 46 U/L 10/03/2014 9:38 [facility] ALT 33 21 - 72 U/L 10/03/2014 9:38 [facility] Albumin 4.0 3.4 - 4.9 g/dl 10/03/2014 9:38 [facility] Total Protein 7.0 6.5 - 8.3 g/dl 10/03/2014 9:38 [facility] Creatinine 0.80 0.66 - 1.25 mg/dl 10/03/2014 9:38 [facility] GFR, Calculated >60 >60 ml/min/1.7 3m2 10/03/2014 9:38 [facility] BUN 20 10 - 26 mg/dl 10/03/2014 9:38 [facility] Calcium 9.9 8.5 - 10.5 mg/dl 10/03/2014 9:38 [facility] Calculated Calcium 10.3 8.5 - 10.5 mg/dl 10/03/2014 9:38 [facility] Glucose, Serum 122(H) 70 - 100 mg/dl 10/03/2014 9:38 [facility] Fasting? YES 10/03/2014 8:40 [facility] Blood specimen (specimen) BLOOD SPECIMEN / Unknown 10/03/2014 8:40 EDT 10/03/2014 9:09 EDT Brody Duran MD PhD CHEMISTRY & BLO OD GAS ORDERABLES [facility] [address] [place] [address] * (ABNORMAL) HEMAGRAM (10/03/2014 8:40 EDT) WBC 4.13 4.0 - 10.4 K/cmm 10/03/2014 9:17 [facility] RBC 4.55 4.36 - 5.78 M/cmm 10/03/2014 9:17 [facility] Hemoglobin 15.0 13.8 - 17.3 gm/dl 10/03/2014 9:17 [facility] HCT 42.9 39.5 - 50.2 % 10/03/2014 9:17 [facility] MCV 94 81 - 95 fl 10/03/2014 9:17 [facility] MCH 33.0 27.6 - 33.0 pg 10/03/2014 9:17 [facility] MCHC 35.0 32.8 - 36.4 gm/dl 10/03/2014 9:17 [facility] RDW-CV 14.3(H) 11.8 - 14.1 % 10/03/2014 9:17 [facility] RDW-SD 46.8(H) 36.5 - 45.9 fl 10/03/2014 9:17 [facility] PLT 100(L) 141 - 320 K/cmm 10/03/2014 9:17 [facility] MPV 6.7(L) 7.5 - 11.2 fl 10/03/2014 9:17 [facility] Blood specimen (specimen) BLOOD SPECIMEN / Unknown 10/03/2014 8:40 EDT 10/03/2014 9:09 EDT Brody Duran MD PhD HEMATOLOGY & PF 4 ORDERABLES [facility] [address] [place] [address] documented in this encounter Visit Diagnoses Diagnosis Chronic hepatitis C without mention of hepatic coma- Primary documented in this encounter Care Teams Entry Level Software Developer Relationship Specialty Start Date End Date Kamala Rosado MD [address] [address] PCP - General 10/05/13 10/19/15 documented as of this encounter
--- OUTSIDE RECORDS SUMMARY | 2023-12-21 12:09 | XMS_ITS | Encounter Summary ---
Author Organization [facility] Address [address] [place] [address] Care Team Providers Care Rehabilitation Nurse Name Role Phone Kamala Rosado MD Primary Care Provider [phone] Encounter Details Date Type Department Care Team (Latest Contact Info) Description 06/06/2014 Documentation Visit [facility] Gastroenterology - [facility] [address] [place] [address] [address] [facility] Social History Tobacco Use Types Packs/Day Years [...] Progress Notes * Ct Martinez RPH - 06/06/2014 0857 EST Mr. Urbina came in with his for Harvoni initiation. Start date 06 Jun 2014. I completed a drug utilization review on patient's chart and updated the patient's medication profile, allergies and immunization record. Reviewed Harvoni storage requirements, missed dose instructions, and the importance of daily dosingcompliance (same time of day, w/no dietary restriction) and 4 week lab follow up -- based on start date he agreed to come in on June 28 for labs to be done at the [facility]. Patient denied use of any other OTC, herbals meds. He does not drink alcohol. Reviewed interaction with PPIs and instructed patient to take at the same time as Harvoni and all other antacids 4 hours apart from Harvoni dose. Patient denies [place], fatigue, N/D or insomnia. Reviewed these as rare but possible side effects of therapy; instructed to contact office if he notices any other changes or adverse effects. Vaccines for Hep A/B are up to date. Recommend PCV13 documented in this encounter Plan of Treatment Upcoming Encounters Date Type Department Care Team (Late st Contact Info) Description 01/23/2024 10:00 EDT Office Visit [facility] General Surgery - [address] [address] Bon Gutierrez MD [address] [place] [address], [address] [place] [phone] 09/10/2024 10:00 EDT Appointment Shaina Mejia [address] [place] [phone] documented as of this encounter Visit Diagnoses Not on filedocumented in this encounter Care Teams Rehabilitation Nurse Relationship Specialty Start Date End Date Kamala Rosado MD [address] [address] PCP - General 10/05/13 10/19/15 documented as of this encounter
--- OUTSIDE RECORDS SUMMARY | 2023-12-21 12:09 | XMS_ITS | Encounter Summary ---
Author Organization [facility] Address [address] [place] [address] Care Team Providers Care Observation Assistant Name Role Phone Kamala Rosado MD Primary Care Provider [phone] Encounter Details Date Type Department Care Team (Late st Contact Info) Description 05/17/[address] [facility] [address] [place] [address] Skills Trainer, Outpatient Cirrhosis of liver without mention of alcohol; Chronic hepatitis C without mention of hepatic coma Social History Tobacco Use Types Packs/Day Years [...] 01/23/2024 10:00 EDT Office Visit [facility] General Surgery - [facility] [address] [place], [place] [address] Bon Gutierrez MD 111 [facility], [address] [place] [address] 09/10/2024 10:00 EDT Appointment Shaina Bergeron Ultrasound [address] [place] [address] documented as of this encounter Procedures Procedure Name Priority Date/Time Associated Diagnosis Comments HCV RNA DETECT QUANT Routine 05/17/2014 11:43 EST Cirrhosis of liver without mention of alcohol Chronic hepatitis C without mention of hepatic coma documented in this encounter Results * HCV RNA DETECT QUANT (05/17/2014 11:43 EST) HCV RNA Detect Quant 348,635 IU/mL 05/20/2014 15:05 EST [facility] Comment: Reference Range: ??Undetected The quantification range of this assay is 15 IU/mL to 100,000,000 IU/mL. Testing was performed by the [employer] Ampliprep/Mili TaqMan HCV v2.0 ([employer] Blood specimen (specimen) BLOOD SPECIMEN / Unknown 05/17/2014 11:43 EST 05/17/2014 12:16 EST Brody Duran MD PhD CHEMISTRY & BLO OD GAS ORDERABLES [facility] [address] [place] [address] documented in this encounter Visit Diagnoses Diagnosis Cirrhosis of liver without mention of alcohol Chronic hepatitis C without mention of hepatic coma documented in this encounter Care Teams Observation Assistant Relationship Specialty Start Date End Date Kamala Rosado MD NPI: [id number] [place] [address] PCP - General 10/05/13 10/19/15 documented as of this encounter
--- OUTSIDE RECORDS SUMMARY | 2023-12-21 12:09 | XMS_ITS | Encounter Summary ---
Author Organization [facility] Address [address] [place] [address] Care Team Providers Care Parts Technician Name Role Phone Kamala Rosado MD Primary Care Provider [phone] Encounter Details Date Type Department Care Team (Late st Contact Info) Description 09/04/2014 8:50 EDT - 09/04/2014 23:59 EDT Hospital Encounter [address] [address] Unknown, Provider, Brody Duran MD PhD [address] [place] [address], [address] [place] [address] Discharge Disposition: Auto Discharge Social [...] Refills Start Date End Date GLUC/PRANAV-MSM#2/C/D3/MAHESH /BORN ([id number] WITH VIT D ORAL) Take 1 Tab [...] Info) Description 01/23/2024 10:00 EDT Office Visit [facility] General Surgery - [facility] [address] [place], [place] [id number] Bon Gutierrez MD 111 [facility], [address] [place] [address] 09/10/2024 10:00 EDT Appointment Shaina Mejia [address] [place] [address] documented as of this encounter Visit Diagnoses Not on filedocumented in this encounter Care Teams Parts Technician Relationship Specialty Start Date End Date Kamala Rosado MD [address] [address] PCP - General 10/05/13 10/19/15 documented as of this encounter
--- OUTSIDE RECORDS SUMMARY | 2023-12-21 12:09 | XMS_ITS | Encounter Summary ---
Author Organization [facility] Address [address] [place] [address] Care Team Providers Care Medical Billing Coordinator Name Role Phone Kamala Rosado MD Primary Care Provider [phone] Reason for Visit * Reason Comments Follow-up Encounter Details Date Type Department Care Team (Late st Contact Info) Description 04/30/2014 9:30 EST Office Visit [facility] Interventional Radiology - [address] [phone] Guicho Rosales MD [address] [place] [address] Level 1 [place] [address] Cirrhosis (CMS-HCC) (HCC-CMS) (Primary Dx) Discharge Disposition: Auto [...] - - Weight 93 kg (205 lb) 04/30/2014 0915 EST Height 162.6 cm (5' 4) 04/30/2014 0915 EST Body Mass Index 35.19 04/30/2014 0915 EST documented in this encounter Functional Status [...] this encounter Patient Instructions * Patient Instructions* Altagracia Palmer - 04/30/2014 9:24 EST We will see you back in 3 months for ultrasound and office visit. Please follow up with Dr. Duran. documented in this encounter Discharge Disposition Disposition Code Departure Means Destination Auto Discharge documented in this encounter Progress Notes * Guicho Rosales MD - 04/30/2014 0944 EST Subjective: Patient ID: Alonzo Urbina is an 58 y.o. male. Chief Complaint Patient presents with ??? 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 Since the TIPS procedure he has done remarkably well and has not experienced any further GI bleeding. He feels well and is generally without complaint. Patient Active Problem List Diagnosis ??? Chronic hepatitis C without mention of hepatic coma ??? Cirrhosis of liver ??? GI bleed ??? Acute blood loss anemia ??? 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 Hematemesis Past Medical History Diagnosis Date ??? Anemia [...] Outpatient Prescriptions Marked as Taking for the 04/30/14 encounter (Office Visit) with Guicho Rosales MD Medication Sig Dispense Refill ??? GLUC/PRANAV-MSM#2/C/D3/MAHESH/BORN ([id number]-[id number] WITH VIT D ORAL) Take 1 Tab by mouth 2 times daily. ??? PV W-O ROCK/FERROUS FUMARATE/FA (M-VIT ORAL) Take 1 Tab by mouth daily. No Facility-Administered Medications for the 04/30/14 encounter (Office Visit) with Guicho Rosales MD. Allergies Allergen Reactions ??? Ambien [Zolpidem] Sleep-driving ROS - See HPI Objective: Ht 162.6 cm (64) Wt 92.987 kg (205 lb) BMI 35.17 kg/m2 Physical Exam No asterixis TIPS ultrasound 04/30/14: Widely patent TIPS without a stenosis. Assessment: Doing well 3 months post TIPS. Plan: Alonzo was seen today for follow-up. Diagnoses and associated orders for this visit: Cirrhosis Other Orders - PV W-O ROCK/FERROUS FUMARATE/FA (M-VIT ORAL); Take 1 Tab by mouth daily. - GLUC/PRANAV-MSM#2/C/D3/MAHESH/BORN (CSEFLXVF-BCRTHR-SOG WITH VIT D ORAL); Take 1 Tab by mouth 2 timesdaily. TIPS ultrasound and clinic visit in 3 months. I spent a total of 30 minutes in face to face time with this patient and 30 minutes of that time was spent in disease review, image review, counseling, treatment planning and coordination of care as described in the progress note. Guicho Rosales MD documented in this encounter Plan of Treatment Upcoming Encounters Date Type Department Care Team (Late st Contact Info) Description 01/23/2024 10:00 EDT Office Visit [facility] General Surgery - [facility] [address] [place], [place] [address] Bon Gutierrez MD 111 [facility], Level 5 [place] [address] 09/10/2024 10:00 EDT Appointment Shaina Bergeron Ultrasound [address] [place], [place] [id number] documented as of this encounter Procedures Procedure Name Priority Date/Time Associated Diagnosis Comments RAD US LIVER WITH DOPPLER 07/30/2014 8:53 EDT documented in this encounter Results * RAD US LIVER WITH DOPPLER (07/30/2014 8:53 EDT) Anatomical Region Laterality Modality Other 07/30/2014 8:53 EDT 07/30/2014 10:55 EDT Narrative 07/30/2014 10:55 EDT RAD US LIVER WITH DOPPLER ??07/30/2014 8:53 AM Clinical History/Comments: 571.5-Cirrhosis of liver without mention of saptzse-YCF-8-CM; TIPS 01/28/14 Comparison: 04/30/2014. Findings: An ultrasound of the liver with Doppler was performed to evaluate TIPS function. In the main portal vein, the peak systolic velocity is 43.6 cm/s. Previously it was 18 cm/s. In the proximal shunt, the peak systolic velocity is 125 cm/s. Previously it was 29 cm/s. Previously the velocity was low. However, the increase in velocity from the prior study is more than 50 cm/s. The shunt velocity in the midportion is 105.4 cm/s. Previously it was 56 cm/s. The velocity now is within normal limits. Previously it was low. The increase in velocity does not quite reach the maximum allowed increase of 50 cm/s. In the distal shunt, the peak systolic velocity on today's examination is 134 cm/s. This is a normal velocity. Previously, the peak systolic velocity was 66 cm/s was was slightly low. However, the increase in peak systolic velocity is slightly above the allowed increase of 50 cm/s. Immediately outside of the TIPS, in the right hepatic vein, the peak systolic velocity is 99.4 cm/s. Previously was 75 cm/s. This is within normal limits. Evaluation flow within the left and right portal veins is somewhat difficult to assess on this examination due to study technique and patient body habitus. Flow within the left portal vein appears to be hepatopedal which is the normal direction of flow. Previously it was hepatofugal. Flow within the right portal vein appears to be hepatopedal. Previously it was hepatofugal. During tidal respiration, the main portal vein measures 0.9 cm; within normal limits. The IVC during tidal respiration is 1 cm; within normal limits. The liver measures 14.3 cm and has coarse echogenicity with a slightly nodular contour. Impression: 1. The velocities within the shunt, pre-and post shunt are all within normal limits on today's examination. The velocities on the prior exam were below normal limits, particularly in the proximal and mid portions of the shunt. The velocities on today's exam, while normal, reflect at least 50 cm/s or more in change. In addition, flow within the left and right portal veins is difficult to evaluate on today's examination as described above and appears to be hepatopedal. Previously flow within these veins was reversed; hepatofugal. Overall, the exam is difficult to interpret due to patient body habitus and scanning technique. The above mentioned changes in velocities and flow are of uncertain significance. Clinically correlate. 2. Findings consistent with cirrhosis. 3. The maximum diameters of the main portal vein and the IVC during tidal respiration are normal. Clinical correlation is recommended. Followup Doppler visceral ultrasound as clinically indicated. Procedure Note Sarina Carter MD - 07/30/2014 RAD US LIVER WITH DOPPLER 07/30/2014 8:53 AM Clinical History/Comments: 571.5-Cirrhosis of liver without mention of slsfunm-KFH-8-CM; TIPS 01/28/14 Comparison: 04/30/2014. Findings: An ultrasound of the liver with Doppler was performed to evaluate TIPS function. In the main portal vein, the peak systolic velocity is 43.6 cm/s. Previously it was 18 cm/s. In the proximal shunt, the peak systolic velocity is 125 cm/s. Previously it was 29 cm/s. Previously the velocity was low. However, the increase in velocity from the prior study is more than 50 cm/s. The shunt velocity in the midportion is 105.4 cm/s. Previously it was 56 cm/s. The velocity now is within normal limits. Previously it was low. The increase in velocity does not quite reach the maximum allowed increase of 50 cm/s. In the distal shunt, the peak systolic velocity on today's examination is 134 cm/s. This is a normal velocity. Previously, the peak systolic velocity was 66 cm/s was was slightly low. However, the increase in peak systolic velocity is slightly above the allowed increase of 50 cm/s. Immediately outside of the TIPS, in the right hepatic vein, the peak systolic velocity is 99.4 cm/s. Previously was 75 cm/s. This is within normal limits. Evaluation flow within the left and right portal veins is somewhat difficult to assess on this examination due to study technique and patient body habitus. Flow within the left portal vein appears to be hepatopedal which is the normal direction of flow. Previously it was hepatofugal. Flow within the right portal vein appears to be hepatopedal. Previously it was hepatofugal. During tidal respiration, the main portal vein measures 0.9 cm; within normal limits. The IVC during tidal respiration is 1 cm; within normal limits. The liver measures 14.3 cm and has coarse echogenicity with a slightly nodular contour. Impression: 1. The velocities within the shunt, pre-and post shunt are all within normal limits on today's examination. The velocities on the prior exam were below normal limits, particularly in the proximal and mid portions of the shunt. The velocities on today's exam, while normal, reflect at least 50 cm/s or more in change. In addition, flow within the left and right portal veins is difficult to evaluate on today's examination as described above and appears to be hepatopedal. Previously flow within these veins was reversed; hepatofugal. Overall, the exam is difficult to interpret due to patient body habitus and scanning technique. The above mentioned changes in velocities and flow are of uncertain significance. Clinically correlate. 2. Findings consistent with cirrhosis. 3. The maximum diameters of the main portal vein and the IVC during tidal respiration are normal. Clinical correlation is recommended. Followup Doppler visceral ultrasound as clinically indicated. Guicho Rosales MD IMG US ORDER CLAUDIO documented in this encounter Visit Diagnoses Diagnosis Cirrhosis (HCC-CMS)- Primary Cirrhosis of liver without mention of alcohol documented in this encounter Discontinued Medications Medication Sig Discontinue Reason Start Date End Da te carvedilol (COREG) 6.25 mg tablet Take 1 Tab by mouth 2 times daily with breakfast and dinner. Discontinued by another clinician 01/29/2014 04/30/2014 cyanocobalamin 1,000 mcg tablet Take 1 Tab by mouth daily. Discontinued by another clinician 01/29/2014 04/30/2014 ferrous fumarate (FERRETTS) 325 mg (106 mg iron) tablet Take 1 Tab by mouth daily. Discontinued by another clinician 01/29/2014 04/30/2014 FOLIC ACID ORALIndications:Chron ic hepatitis C without mention of hepatic coma,Cirrhosis (HCC-CMS) Take 5 mg by mouth daily. Discontinued by another clinician 04/30/2014 lactulose (CHRONULAC) 20 gram/30 mL solution Take by mouth 3 times daily 45 mL For 7 days . Discontinued by another clinician 04/30/2014 pyridoxine (VITAMIN B6) 50 mg tablet Take 1 Tab by mouth daily. Discontinued by another clinician 01/29/2014 04/30/2014 thiamine (VITAMIN B1) 100 mg tablet Take 1 Tab by mouth daily. Discontinued by another clinician 01/29/2014 04/30/2014 traMADol (ULTRAM) 50 mg tablet Take 1 Tab by mouth every 6 hours as needed for Pain. Discontinued by another clinician 01/29/2014 04/30/2014 documented as of this encounter Historical Medications * This list may reflect changes made after this encounter. Medication Sig Dispensed Refills Start Date End Date GLUC/PRANAV-MSM#2/C/D3/MAHESH /BORN ([id number]-[id number] WITH VIT D ORAL) Take 1 Tab by mouth 2 times daily. 11/12/2014 PV W-O ROCK/FERROUS FUMARATE/FA (M-VIT ORAL) Take 1 Tab by mouth daily. 11/12/2014 added in this encounter Care Teams Medical Billing Coordinator Relationship Specialty Start Date End Date Kamala Rosado MD [address] [address] PCP - General 10/05/13 10/19/15 documented as of this encounter
--- OUTSIDE RECORDS SUMMARY | 2023-12-21 12:09 | XMS_ITS | Encounter Summary ---
Author Organization [facility] Address [address] [place] [address] Care Team Providers Care Apple Packing Header Name Role Phone Kamala Rosado MD Primary Care Provider [phone] Encounter Details Date Type Department Care Team (Late st Contact Info) Description 08/29/2014 Phlebotomy Only [facility] [address] [place] [address] Form Building Supervisor, Outpatient Chronic hepatitis C without mention of [...] Info) Description 01/23/2024 10:00 EDT Office Visit [facility] General Surgery - [facility] [address] [place], [place] [phone] Bon Gutierrez MD 111 [facility], Level [address] [place] [address] 09/10/2024 10:00 EDT Appointment Shaina Bergeron Ultrasound [address] [place] [address] documented as of this encounter Procedures Procedure Name Priority Date/Time Associated Diagnosis Comments HCV RNA DETECT QUANT Routine 08/29/2014 11:24 EDT Chronic hepatitis C without mention of hepatic coma documented in this encounter Results * HCV RNA DETECT QUANT (08/29/2014 11:24 EDT) HCV RNA Detect Quant Undetected IU/mL 09/03/2014 14:19 EDT [facility] Comment: Reference Range: ??Undetected The quantification range of this assay is 15 IU/mL to 100,000,000 IU/mL. Testing was performed by the Mili Ampliprep/Mili TaqMan HCV v2.0 ([employer] Blood specimen (specimen) BLOOD SPECIMEN / Unknown 08/29/2014 11:24 EDT 08/29/2014 11:44 EDT Brody Duran MD PhD CHEMISTRY & BLO OD GAS ORDERABLES [facility] [address] [place] [address] documented in this encounter Visit Diagnoses Diagnosis Chronic hepatitis C without mention of hepatic coma- Primary documented in this encounter Care Teams Apple Packing Header Relationship Specialty Start Date End Date Kamala Rosado MD [address] [address] PCP - General 10/05/13 10/19/15 documented as of this encounter
--- OUTSIDE RECORDS SUMMARY | 2023-12-21 12:09 | XMS_ITS | Encounter Summary ---
Author Organization [facility] Address [address] [place] [address] Care Team Providers Care Geological Survey Field Assistant Name Role Phone Kamala Rosado MD Primary Care Provider [phone] Encounter Details Date Type Department Care Team (Late st Contact Info) Description 06/28/2014 Phlebotomy Only [facility] [address] [place] [address] Buckle Inspector, Outpatient Chronic hepatitis C without mention of [...] Office Visit [facility] General Surgery - [facility] [address] [place], [place] [address] Bon Gutierrez MD 111 [facility], Level [address] [place] [address] 09/10/2024 10:00 EDT Appointment Shaina Bergeron Ultrasound [address] [place] [address] documented as of this encounter Procedures Procedure Name Priority Date/Time Associated Diagnosis Comments HCV RNA DETECT QUANT Routine 06/28/2014 9:17 EDT Chronic hepatitis C without mention of hepatic coma documented in this encounter Results * HCV RNA DETECT QUANT (06/28/2014 9:17 EDT) HCV RNA Detect Quant Undetected IU/mL 07/01/2014 14:54 EDT [facility] Comment: Reference Range: ??Undetected The quantification range of this assay is 15 IU/mL to 100,000,000 IU/mL. Testing was performed by the Mili Ampliprep/Mili TaqMan HCV v2.0 ([employer] Blood specimen (specimen) BLOOD SPECIMEN / Unknown 06/28/2014 9:17 EDT 06/28/2014 9:33 EDT Brody Duran MD PhD CHEMISTRY & BLO OD GAS ORDERABLES [facility] [address] [place] [address] documented in this encounter Visit Diagnoses Diagnosis Chronic hepatitis C without mention of hepatic coma- Primary documented in this encounter Care Teams Geological Survey Field Assistant Relationship Specialty Start Date End Date Kamala Rosado MD [address] [address] PCP - General 10/05/13 10/19/15 documented as of this encounter
--- OUTSIDE RECORDS SUMMARY | 2023-12-21 12:09 | XMS_ITS | Encounter Summary ---
Author Organization [facility] Address [address] [place] [address] Care Team Providers Care Aerobics Instructor Name Role Phone Kamala Rosado MD Primary Care Provider [phone] Encounter Details Date Type Department Care Team (Late st Contact Info) Description 04/30/2014 7:32 EST - 04/30/2014 23:59 EST Hospital Encounter [address] [address] Guicho Rosales MD [address] [place] [address] [address] [place] [phone] Discharge Disposition: Auto Discharge Social History Tobacco [...] as of this encounter Discharge Diagnoses Diagnosis 070.70 UNSPECIFIED VIRAL HEPATITIS C WITHOUT HEPATIC COMA[ICD-9-CM] 571.5 CIRRHOSIS OF LIVER NOS[ICD-9-CM] 578.9 GASTROINTEST HEMORR NOS[ICD-9-CM] documented in this encounter Medications at Time of Discharge Medication Sig Dispensed Refills Start Date End Date GLUC/PRANAV-MSM#2/C/D3/MAHESH /BORN ([id number]-[id number] WITH VIT D ORAL) Take 1 Tab [...] Description 01/23/2024 10:00 EDT Office Visit [facility] General Surgery - [facility] [address] [place], [place] [address] Bon Gutierrez MD 111 [facility], Level [address] [place] [phone] 09/10/2024 10:00 EDT Appointment Shaina Bergeron [id number] [place], [place] [phone] documented as of this encounter Visit Diagnoses Not on filedocumented in this encounter Care Teams Aerobics Instructor Relationship Specialty Start Date End Date Kamala Rosado MD [address] [address] PCP - General 10/05/13 10/19/15 documented as of this encounter
--- OUTSIDE RECORDS SUMMARY | 2023-12-21 12:09 | XMS_ITS | Encounter Summary ---
Author Organization [facility] Address [address] [place] [address] Care Team Providers Care Stem Shaper Name Role Phone Kamala Rosado MD Primary Care Provider [phone] Encounter Details Date Type Department Care Team (Latest Contact Info) Description 09/03/2014 Orders Only [facility] Gastroenterology - [facility] [address] [place] [address] [address] [facility] Chronic hepatitis C without mention of hepatic [...] Progress Notes * Ct Martinez RPH - 09/03/2014 1447 EDT Spoke with patient and reviewed results of HCV RNA Quant on 08/29/14- undetectable. Patient is cirrhotic should also have cbc,cmp & INR drawn q4wks through treatment end. Placed lab orders and Alonzo confirmed he would be in tomorrow at [facility] for labs and on 09/05 for follow up appt with Dr. Duran. documented in this encounter Plan of Treatment Upcoming Encounters Date Type Department Care Team (Late st Contact Info) Description 01/23/2024 10:00 EDT Office Visit [facility] General Surgery - [address] [id number] Bon Gutierrez MD 111 [facility], Level [address] [place] [address] 09/10/2024 10:00 EDT Appointment Shaina Bergeron [address] [place] [address] documented as of this encounter Visit Diagnoses Diagnosis Chronic hepatitis C without mention of hepatic coma- Primary documented in this encounter Care Teams Stem Shaper Relationship Specialty Start Date End Date Kamala Rosado MD [address] [address] PCP - General 10/05/13 10/19/15 documented as of this encounter
--- OUTSIDE RECORDS SUMMARY | 2023-12-21 12:10 | XMS_ITS | Encounter Summary ---
Author Organization [facility] Address [address] [place] [address] Care Team Providers Care Scheduling Representative Name Role Phone Barbra Vaughn MD Primary Care Provider [phone] Reason for Referral * Radiology Services (Routine) - Closed Specialty Diagnoses / Procedures [facility] Referred To Contact Diagnoses Cirrhosis of liver (HCC-CMS) Chronic hepatitis C without mention of hepatic coma Procedures RAD US ABDOMEN ONE ORGAN/QUADRANT Brody Duran MD PhD [address] [place] [id number] Referral ID Status Reason Start Date Expiration Date Visits Re quested Visits Authorized [id number] Closed 07/10/2013 1 1 Reason for Visit * Reason Comments Cirrhosis and gi bleed, f/u Encounter Details Date Type Department Care Team (Late st Contact Info) Description 07/10/2013 16:00 EDT Office Visit [facility] Gastroenterology - [address] [address] Brody Duran MD PhD [address] [place] [phone] Cirrhosis of liver (CMS-HCC) (HCC-CMS) (Primary Dx); Chronic hepatitis C without mention of hepatic [...] Sign Reading Time Taken Comments Blood Pressure 116/60 07/10/2013 1552 EDT Pulse 56 07/10/2013 1552 EDT Temperature - - Respiratory Rate - - Oxygen Saturation - - Inhaled Oxygen Concentration - - Weight 85.3 kg (188 lb) 07/10/2013 1552 EDT Height 161.9 cm (5' 3.75) 07/10/2013 1552 EDT Body Mass Index 32.52 07/10/2013 1552 EDT documented in this encounter Functional Status Cognitive Status Response Date of Assessm ent Because of a physical, menta l, or emotional condition, do you have serious difficulty concentrating, remembering, or making decisions? (5 years old or older) Yes 06/15/2013 documented as of this encounter Progress Notes * Brody Duran MD - 07/11/2013 0853 EDT DIVISION OF GASTROENTEROLOGY PROGRESS / FOLLOWUP NOTE - 07/10/2013 [place] [address] Rosado: Thank you for asking me to see Alonzo Taverakins in the office today. I spent 25 minutes with him, withat least 15 minutes devoted to a discussion of evolving management options for hepatitis C. 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 I saw him in consultation in March 2013 at the request of his previous primary physician Dr Barbra Vaughn. The salient issues at that time were complications of previous treatment with peginterferon and ribavirin (which precipitated encephalitis and was discontinued prematurely), as well as a history of obscure gastrointestinal blood loss, which had been extensively evaluated at [facility], including upper endoscopy, colonoscopy and capsule endoscopy. The patient had recurrent hematochezia last month and was briefly hospitalized at [facility]. An upper endoscopy performed at that time showed nonbleeding esophageal varices, portal hypertensive gastropathy with an area of oozing and a clean-based ulcer in the duodenal bulb. A tagged red cell scan was unremarkable. There has been no further bleeding within the past 4 weeks. The patient reports no other signs or symptoms of intercurrent decompensated liver disease, including jaundice or fluid retention. He thinks that vaccination against hepatitis A has been initiated. Other medical issues include depression and chronic back pain related to scoliosis. Current medications include: Nadolol 20 mg daily. Pantoprazole 40 mg daily. Iron supplements. Folic acid. Tylenol No. 3. On physical examination, the patient was found to be an obese white man. Weight 188 pounds, (BMI 32.52), blood pressure 116/60, pulse 56. The sclerae were clear. Laboratory data obtained today show white blood cell count 3.62, hematocrit 30.6, platelets 149, INR 1.1, bilirubin 0.8, alkaline phosphatase 83, ALT 38, AST 41, albumin 4.0, creatinine 0.9. The MELDscore was 7 (range 6-40). In summary, Mr Urbina has cirrhosis secondary to hepatitis C, which has been complicated by portalhypertension and minimal hepatic synthetic dysfunction. The best currently available treatments forgenotype 1 hepatitis C include peginterferon, which is contraindicated in this patient, but robust interferon- free treatments could be available next year. The etiology of recurrent obscure gastrointestinal bleeding remains uncertain. I cannot exclude thepossibility of portal hypertensive enteropathy, which could have been missed on capsule endoscopy. There would be no downside to changing nadolol to carvedilol 12.5 mg daily, which has superior potency for control of portal hypertension, and I suggest that you consider this switch. If anemia becomes refractory to iron supplementation, a diagnostic option would be spiral enteroscopy. Vaccination against hepatitis A should be completed. Assuming that the patient remains stable from the standpointof liver disease, I would like to see him in followup in March 2014. Thank you once again for allowing me to see this patient in consultation with you. Should you have any further questions regarding this evaluation, please feel free to contact me at any time. Sincerely, Brody Duran MD,PhD 04 57 PM - Brody Duran MD,PhD arianna Dictation ID: [id number] cc: Kamala Rosado MD,[facility], [address] [place] [id number] * Brody Duran MD - 07/10/2013 1657 EDT This office note has been dictated. documented in this encounter Plan of Treatment Upcoming Encounters Date Type Department Care Team (Late st Contact Info) Description 01/23/2024 10:00 EDT Office Visit [facility] General Surgery - [facility] [address], [place] [id number] Bon Gutierrez MD [address] [facility], [address] [place] [address] 09/10/2024 10:00 EDT Appointment Shain[facility]on Ultrasound [address] [place] [address] documented as of this encounter Procedures Procedure Name Priority Date/Time Associated Diagnosis Comments RAD US ABDOMEN ONE ORGAN/QUADRANT Routine 12/11/2013 9:01 EDT Cirrhosis of liver (CMS-HCC) (HCC-CMS) Chronic hepatitis C without mention of hepatic coma documented in this encounter Results * RAD US ABDOMEN ONE ORGAN/QUADRANT (12/11/2013 9:01 EDT) Anatomical Region Laterality Modality Other 12/11/2013 9:01 EDT 12/11/2013 11:09 EDT Narrative 12/11/2013 11:08 EDT RAD US ABDOMEN ONE ORGAN/QUADRANT ??12/11/2013 9:01 AM SIGNS AND SYMPTOMS/COMMENTS: ??571.5-Cirrhosis of liver without mention of edyvzhb-BCV-0-CM 070.54-Chronic hepatitis C without mention of hepatic xwqi-SKR-7-CM; cirrhosis evaluate for tumor Comparison: June 18, 2013 Findings: Static and cine ultrasound and Doppler ultrasound images of the right upper quadrant were obtained. The liver has a heterogeneous echotexture. The surface of the liver is nodular indicative of cirrhosis. The liver is normal in size measuring 14 cm in the craniocaudal dimension. No focal hepatic masses are identified. There is no intrahepatic or extrahepatic biliary ductal dilatation. The common bile duct measures 0.5 cm. ??The portal vein is patent. There is a reversal of portal flow. The gallbladder contains no stones and has a normal wall thickness. There is no pericholecystic fluid. No sonographic Gonsalez's sign was elicited. The right kidney measures 10.2 cm. The renal echotexture is normal. There is no hydronephrosis. The pancreas is not well visualized. Imaged portions of the aorta and IVC are normal. Impression: No focal hepatic mass is identified. Hepatic cirrhosis. Portal hypertension with suspected reversal of portal flow. I have personally reviewed the images and the above interpretation and agree with the findings. Procedure Note 12/11/2013 RAD US ABDOMEN ONE ORGAN/QUADRANT 12/11/2013 9:01 AM SIGNS AND SYMPTOMS/COMMENTS: 571.5-Cirrhosis of liver without mention of [id number]-GLZ-6-CM 070.54-Chronic hepatitis C without mention of hepatic saqn-HXI-3-CM; cirrhosis evaluate for tumor Comparison: June 18, 2013 Findings: Static and cine ultrasound and Doppler ultrasound images of the right upper quadrant were obtained. The liver has a heterogeneous echotexture. The surface of the liver is nodular indicative of cirrhosis. The liver is normal in size measuring 14 cm in the craniocaudal dimension. No focal hepatic masses are identified. There is no intrahepatic or extrahepatic biliary ductal dilatation. The common bile duct measures 0.5 cm. The portal vein is patent. There is a reversal of portal flow. The gallbladder contains no stones and has a normal wall thickness. There is no pericholecystic fluid. No sonographic Gonsalez's sign was elicited. The right kidney measures 10.2 cm. The renal echotexture is normal. There is no hydronephrosis. The pancreas is not well visualized. Imaged portions of the aorta and IVC are normal. Impression: No focal hepatic mass is identified. Hepatic cirrhosis. Portal hypertension with suspected reversal of portal flow. I have personally reviewed the images and the above interpretation and agree with the findings. Brody D Lidofsky MD PhD IMG US ORDERABL ES * PROTIME (07/10/2013 16:51 EDT) Pro Time 13.1 9.5 - 13.1 secs [facility] I.N.R. 1.1 0.9 - 1.1 Ratio [facility] Comment: Moderate Intensity Coumadin INR = 2.0-3.0 Adjustments in anticoagulant therapy dose should be based upon the INR and NOT the Pro Time. Blood specimen (specimen) 07/10/2013 16:51 EDT 07/10/2013 17:40 EDT Brody Duran MD PhD HEMATOLOGY & PF 4 ORDERABLES Performing Organization Address [facility] Co de Phone Number [facility] [address] [place] [address] * (ABNORMAL) HEMAGRAM (07/10/2013 16:51 EDT) WBC 3.62(L) 4.0 - 10.4 K/cmm [facility] RBC 3.79(L) 4.36 - 5.78 M/cmm [facility] Hemoglobin 10.0(L) 13.8 - 17.3 gm/dl [facility] HCT 30.6(L) 39.5 - 50.2 % [facility] MCV 81 81 - 95 fl [facility] MCH 26.4(L) 27.6 - 33.0 pg [facility] MCHC 32.7(L) 32.8 - 36.4 gm/dl [facility] PLT 149 141 - 320 K/cmm [facility] RDW-CV 19.1(H) 11.8 - 14.1 % [facility] Blood specimen (specimen) 07/10/2013 16:51 EDT 07/10/2013 17:40 EDT Brody Duran MD PhD HEMATOLOGY & PF 4 ORDERABLES Performing Organization Address [facility] Co de Phone Number [facility] [address] [place] [address] * (ABNORMAL) COMPREHENSIVE METABOLIC PANEL (CMP) (07/10/2013 16:51 EDT) Potassium 4.3 3.5 - 5.0 mEq/L [facility] Sodium 144 136 - 145 mEq/L [facility] Chloride 107 96 - 110 mEq/L [facility] CO2 25 24 - 32 mEq/L [facility] Total Alkaline Phosphatase 83 38 - 126 U/L [facility] Bilirubin, Total 0.8 <1.4 mg/dl [facility] AST 41 15 - 46 U/L [facility] ALT 38 21 - 72 U/L [facility] Albumin 4.0 3.4 - 4.9 g/dl [facility] Total Protein 7.6 6.5 - 8.3 g/dl [facility] Creatinine 0.90 0.66 - 1.25 mg/dl [facility] GFR, Calculated >60 >60 ml/min/1.7 3m2 [facility] BUN 17 10 - 26 mg/dl [facility] Calcium 9.0 8.5 - 10.5 mg/dl [facility] Calculated Calcium 9.4 8.5 - 10.5 mg/dl [facility] Glucose, Serum 121(H) 70 - 100 mg/dl [facility] Fasting? Unknown [facility] Blood specimen (specimen) 07/10/2013 16:51 EDT 07/10/2013 17:40 EDT Brody Duran MD PhD CHEMISTRY & BLO OD GAS ORDERABLES [facility] [address] [place] [address] documented in this encounter Visit Diagnoses Diagnosis Cirrhosis of liver (HCC-CMS)- Primary Cirrhosis of liver without mention of alcohol Chronic hepatitis C without mention of hepatic coma documented in this encounter Care Teams Scheduling Representative Relationship Specialty Start Date End Date Barbra Vaughn MD [address] [place] [address] PCP - General 02/27/13 10/04/13 documented as of this encounter
--- OUTSIDE RECORDS SUMMARY | 2023-12-21 12:10 | XMS_ITS | Encounter Summary ---
Author Organization [facility] Address [address] [place] [address] Care Team Providers Care Golf Tournament Consultant Name Role Phone Kamala Rosado MD Primary Care Provider [phone] Reason for Visit * Reason Onset Date Comments Other 01/24/2014 inpatient capsul e endoscopy Encounter Details Date Type Department Care Team (Late st Contact Info) Description 01/24/2014 Telephone [facility] [place] [address] Deedee Chairez RN Other (inpatient capsule endoscopy) Social History Tobacco Use Types Packs/Day Years [...] encounter Miscellaneous Notes * Telephone Encounter - Deedee Chairez RN - 01/24/2014 0836 EDT Subjective: Patient referred for Capsule Endoscopy for evaluation of their symptoms: Treatment for GI bleed. Inpatient. Objective: Patient has been on a clear liquid diet after noon yesterday and nothing by mouth since midnight. The procedure was explained and the informed consent form was signed in the presence of the nursing staff, explaining the risks and benefits of the procedure. Assessment: Patient was able to perform the procedure without difficulty. Plan: Capsule Endoscopy performed by [facility] Department of Gastroeneterology; per protocol. In accordance with [facility] guidelines. Results will be reviewed by Dr. Jenkins. The information will be sent to the referring provider for plan of care. Deedee Chairez RN I was supervised by Dr. Jenkins who was present and immediately available in the office suite. Deedee Chairez RN 01/24/2014 8:36 documented in this encounter Plan of Treatment Upcoming Encounters Date Type Department Care Team (Late st Contact Info) Description 01/23/2024 10:00 EDT Office Visit [facility] General Surgery - [address] [phone] Bon Gutierrez MD [address] [place] [address], [address] [place] [phone] 09/10/2024 10:00 EDT Appointment Shaina Bergeron [address] [phone] documented as of this encounter Visit Diagnoses Not on filedocumented in this encounter Care Teams Golf Tournament Consultant Relationship Specialty Start Date End Date Kamala Rosado MD [address] [address] PCP - General 10/05/13 10/19/15 documented as of this encounter
--- OUTSIDE RECORDS SUMMARY | 2023-12-21 12:10 | XMS_ITS | Encounter Summary ---
Author Organization [facility] Address [address] [place] [address] Care Team Providers Care Film Editor Name Role Phone Kamala Rosado MD Primary Care Provider [phone] Reason for Visit * Reason Comments Hemoptysis I starting coughing up blood recently has been having Rectal blood has been feeling tired was recently DC from hospital, states has low hct. Encounter Details Date Type Department Care Team (Late st Contact Info) Description 01/22/2014 11:35 EDT - 01/29/2014 11:55 EDT Hospital Encounter [facility] General Medicine Unit [address], [place] [id number] Kalani Parsons MD [address] [facility], Level [address] [place] [phone] Manoj Valencia MD [address] [phone] Louisa Gurrola MD MPH [address] [phone] GI bleed (Primary Dx); Hematemesis; Anemia; Thrombocytopenia (CMS-HCC); Portal hypertension (HCC-CMS); Cirrhosis (CMS-HCC) (HCC-CMS); Headache, acute; Leukopenia; Acute blood loss anemia Discharge Disposition: Home or Self Care Social [...] Sign Reading Time Taken Comments Blood Pressure 117/55 01/29/2014 0848 EDT Pulse 83 01/29/2014 0848 EDT Temperature 37.2 ??C (99 ??F) 01/29/2014 0453 EDT Respiratory Rate 20 01/29/2014 0453 EDT Oxygen Saturation 94% 01/29/2014 0453 EDT Inhaled Oxygen Concentration - - Weight 90.1 kg (198 lb 9.6 oz) 01/29/2014 0126 E DT Height 162.6 cm (5' 4) 01/22/2014 2342 EDT Body Mass Index 34.09 01/22/2014 2342 EDT documented in this encounter Functional Status [...] 01/22/2014 documented as of this encounter Discharge Summaries * Louisa Gurrola MD - 01/29/2014 0736 EDT Discharge Summary Attending Physician: Louisa Gurrola MD Date of Admission: 01/22/2014 Date of Discharge: 01/29/2014 Disposition: Stable to home Reason for Admission: Hematemesis Hospital Problems: Active Problems: Hematemesis acute blood loss anemia Portal hypertension cirrhosis Principal Procedure: TIPS on 01/28/2014 Secondary Procedures: Capsule Endocscopy Hospital Course: 58 y.o. male w/ PMHx significant for HCV cirrhosis (serotype 1a) complicated by esophageal varices and portal gastropathy (s/p banding 2008), and multiple prior GI bleeds was admitted for hematemesis. Pt was anemic on admission. He had melena during initial part of hospitalization requiring 3 units prbc. He was started on protonix, somatostatin and prophylactic ceftriaxone. His home iron was held on admission for GI bleed and resumed on discharge. His home carvedilol was continued. He remained HDS throughout. GI was consulted and a capsule endoscopy was performed 01/24/2014 which showed gastropathy but no active source of bleed. Due to the negative findings on the capsule study, a TIPS was performed on 01/28. Patient tolerated the procedure well with minimal pain after and no concern for hepatic encephalopathy. He was started on lactulose and instructed to take for 1 week and titrate to 2 bowel movements per day. He was also given a 1 week supply tramadol as needed for pain control. He will follow up with GI 2 weeks after discharge and with interventional radiology in 3 months. Clinical Issues Needing Follow-up: GI bleed- -follow up with GI to ensure no further episodes TIPS- -follow up with IR in 3 months Anemia- -on b1, b12, folate, iron Results Pending at Discharge: Test results still pending from this admission None Discharge Medications: START taking these medications Sig carvedilol 6.25 mg tablet Commonly known as: COREG 6.25 mg, oral, 2 TIMES DAILY WITH BREAKFAST & DINNER cyanocobalamin 1,000 mcg tablet 1,000 mcg, oral, DAILY ferrous fumarate 325 mg (106 mg iron) tablet Commonly known as: FERRETTS 325 mg, oral, DAILY lactulose 20 gram/30 mL solution Commonly known as: CHRONULAC 30 g, oral, 3 TIMES DAILY pyridoxine 50 mg tablet Commonly known as: VITAMIN B6 50 mg, oral, DAILY thiamine 100 mg tablet Commonly known as: VITAMIN B1 100 mg, oral, DAILY traMADol 50 mg tablet Commonly known as: ULTRAM 50 mg, oral, EVERY 6 HOURS PRN CONTINUE taking these medications Sig FOLIC ACID ORAL 5 mg, oral, DAILY STOP taking these medications IRON ORAL nadolol 20 mg tablet Commonly known as: CORGARD Medication Instructions: Take the lactulose as needed to have about 2 bowel movements daily for 1 week Allergies: Ambien Appointments Scheduled with Adarsh Bergeron in the Next 3 Months: These FA appointments have already been scheduled Mar 15, 2014 13:00 Established Patient Visit with [facility] (--) [address] [facility] [address] Follow-Up Appointments and Procedures Recommended to Patient: Follow-up appointments and procedures You will follow up with interventional radiology in about 3 months, they will call to schedule an appt. Their number is [phone] You also have an appt with Dr. Nath of GI on Mar 15 at 1pm . Their number is [phone] Future Appointments Date Time Provider Department Center 03/15/2014 13:00 Brody Duran MD [facility] None Follow up with IR in 3 months, they will schedule appt ATTENDING ATTESTATION: Date of service: 01/29/2014 I interviewed and examined the patient; reviewed interval labs, events, and notes; and discussed the case with the medicine house staff team. I agree with and edited the findings and plan of care as documented in the discharge summary above. I reviewed the plan of care and discharge instructions with the patient. Total unit time I spent in the care of the patient today: 35 Minutes LOUISA GURROLA MD [facility] Inpatient Service 01/29/2014 12:33 documented in this encounter Discharge Instructions * Discharge Instructions* Adelaide Fuentes, MELY - 01/28/2014 15:39 EDT RADIOLOGY PATIENT INFORMATION INSTRUCTIONS AFTER TIPS (Transjugular Intrahepatic Portosystemic Shunt) PROCEDURE Procedure Site - Jugular vein - right neck Physician Performing Procedure - Zac Bridges Christopher Baumann What is TIPS? TIPS is a procedure that helps correct blood flow problems in the liver, which is a common side effect of liver disease. The procedure is an alternative of surgery. An interventional radiologist performs the procedure. A transjugular intrahepatic portosystemic shunt (TIPS) is a small, tubular metal device commonly called a stent that is placed in veins in the middle of the liver to permit blood flow to bypass the liver. In a TIPS procedure, interventional radiologists use image guidance to make a tunnel through the liver to connect the portal vein (the vein that carries blood from the digestive organs to the liver) to one of the hepatic veins (three veins that carry blood away from the liver back to the heart). A stent is then placed in this tunnel to keep the pathway open. 1. DO NOT drive or make any legal decisions today, as the medications that were administered duringthe procedure for sedation and pain control may last several hours. DO NOT lie flat for a minimum of 4 hours from the end time of your procedure. Limit physical exertion to performing normal activities - avoid heavy lifting or strenuous exercise. You may resume activity tomorrow. 2. You may resume your normal diet after the procedure, unless instructed otherwise by the physician. Avoid alcoholic beverages and depressant drugs. 3. DO NOT take aspirin containing medications or blood thinning medication (coumadin) for 24 hours after the procedure. 4. Check your dressing throughout the day for any increased drainage. Keep the dressing dry for 24 hours and then remove. If you experience excessive bleeding from the skin site, apply pressure to the site and seek medical attention. 5. If you or your family members believe you are showing signs of confusion or disorientation, please notify your physician. ?? IF YOU HAVE ANY QUESTIONS OR CONCERNS REGARDING THE PROCEDURE, PLEASE CALL THE INTERVENTIONAL CLINIC AT . SOMEONE IS AVAILABLE TO TAKE YOUR CALL 24 HOURS A DAY. * Medications* Elva Winter - 01/29/2014 11:26 EDT Take the lactulose as needed to have about 2 bowel movements daily for 1 week * Appointments* Elva Winter - 01/29/2014 7:56 EDT You will follow up with interventional radiology in about 3 months, they will call to schedule an appt. Their number is [phone] You also have an appt with Dr. Nath of GI on Mar 15 at 1pm . Their number is [phone] documented in this encounter Medications at Time of Discharge Medication Sig Dispensed Refills Start Date End Date carvedilol (COREG) 6.25 mg tablet Take 1 Tab by mouth 2 times daily with breakfast and dinner. 60 Tab 3 01/29/2014 04/30/2014 cyanocobalamin 1,000 mcg tablet Take 1 Tab by mouth daily. 30 Tab 01/29/2014 04/30/2014 ferrous fumarate (FERRETTS) 325 mg (106 mg iron) tablet Take 1 Tab by mouth daily. 30 Tab 1 01/29/2014 04/30/2014 FOLIC ACID ORALIndications:Chronic hepatitis C without mention of hepatic coma,Cirrhosis (HCC-CMS) Take 5 mg by mouth daily. 04/30/2014 lactulose (CHRONULAC) 20 gram/30 mL solution Take 45 mL by mouth 3 times daily for 7 days. 1 Bottle 1 01/29/2014 02/05/2014 pyridoxine (VITAMIN B6) 50 mg tablet Take 1 Tab by mouth daily. 30 Tab 01/29/2014 04/30/2014 thiamine (VITAMIN B1) 100 mg tablet Take 1 Tab by mouth daily. 30 Tab 01/29/2014 04/30/2014 traMADol (ULTRAM) 50 mg tablet Take 1 Tab by mouth every 6 hours as needed for Pain. 21 Tab 0 01/29/2014 04/30/2014 documented as of this encounter Ordered Prescriptions Prescription Sig Dispensed Refills Start Date End Da te ferrous fumarate (FERRETTS) 325 mg (106 mg iron) tablet Take 1 Tab by mouth daily. 30 Tab 1 01/29/2014 04/30/2014 traMADol (ULTRAM) 50 mg tablet Take 1 Tab by mouth every 6 hours as needed for Pain. 21 Tab 0 01/29/2014 04/30/2014 thiamine (VITAMIN B1) 100 mg tablet Take 1 Tab by mouth daily. 30 Tab 01/29/2014 04/30/2014 pyridoxine (VITAMIN B6) 50 mg tablet Take 1 Tab by mouth daily. 30 Tab 01/29/2014 04/30/2014 lactulose (CHRONULAC) 20 gram/30 mL solution Take 45 mL by mouth 3 times daily for 7 days. 1 Bottle 1 01/29/2014 02/05/2014 cyanocobalamin 1,000 mcg tablet Take 1 Tab by mouth daily. 30 Tab 01/29/2014 04/30/2014 carvedilol (COREG) 6.25 mg tablet Take 1 Tab by mouth 2 times daily with breakfast and dinner. 60 Tab 3 01/29/2014 04/30/2014 documented in this encounter Discharge Disposition Disposition Code Departure Means Destination Home or Self Care documented in this encounter Progress Notes * [facility] [employer]OW IRRIGATOR, SCAN 2 - 02/15/2014 0330 EST * Margareth Lenz RN - 01/29/2014 1245 EDT Patient cleared for discharge to home today. Significant other will provide transportation. Denies any needs at this time. * Saniya Andrade RN - 01/29/2014 1208 EDT Nursing Discharge Note D: Patient noted with discharge orders to: home. A: Prescriptions provided to patient. and faxed to pharmacy. Reviewed discharge instructions and prescriptions with Patient and Family IV d/c'd. Belongings collected and sent home with patient. R: Patient and Family verbalized understanding of discharge instructions and denied further questions. Saniya Galindo RN 01/29/2014 12:08 * Zac Rollins MD - 01/29/2014 0733 EDT Interventional Radiology Progress Note Admit Date: 01/22/2014 LOS: 7 days CC: Bleeding varices Subjective: 24-Hour Events: S/p TIPS for hypertensive portal gastropathy/varices with bleeding, no issues overnight Subjective: Mild neck and flank pain, otherwise doing well Review of Systems Negative except mild pain Meds MAR Reviewed Objective: Vitals: Temp (24hrs), Av.2 ??C (98.9 ??F), Min:36.9 ??C (98.4 ??F), Max:37.5 ??C (99.5 ??F) Blood pressure 107/59, pulse 67, temperature 37.2 ??C (99 ??F), temperature source Tympanic, resp. rate 20, height 162.6 cm (64), weight 90.084 kg (198 lb 9.6 oz), SpO2 94.00%. Patient is on room air Intake/Output Summary (Last 24 hours) at 01/29/14 0733 Last data filed at 01/29/14 0432 Gross per 24 hour Intake 1695 ml Output 500 ml Net 1195 ml I/O for Current Shift: Exam Gen: A&Ox3, NAD Chest: CTAB Cor: RRR, Nl S1S2 Abd: Obese, nontender Ext: WWP, no edema Data Review CBC: Lab Results Component Value Date WBC 5.01 01/29/2014 RBC 3.13* 01/29/2014 HGB 8.7* 01/29/2014 HCT 26.6* 01/29/2014 MCV 85 01/29/2014 MCH 27.9 01/29/2014 MCHC 32.8 01/29/2014 PLT 139* 01/29/2014 NEUTROABS 3.78 01/29/2014 BMP: Lab Results Component Value Date NA 140 01/28/2014 K 4.0 01/28/2014 CL 110 01/28/2014 CO2 23* 01/28/2014 BUN 16 01/28/2014 CREATININE 0.89 01/28/2014 GLUCOSEFINGE 185* 01/22/2014 CALCIUM 8.7 01/22/2014 MG 1.8 01/08/2014 LABALBU 3.3* 01/22/2014 Coagulation: Lab Results Component Value Date PROTIME 12.0 01/28/2014 INR 1.1 01/28/2014 PTT 32 01/28/2014 LFT: Lab Results Component Value Date TBIL 0.7 01/22/2014 ALKPHOS 80 01/22/2014 AST 53* 01/22/2014 ALT 54 01/22/2014 LIPASE 227 10/05/2013 Assessment: Alonzo Urbina is a(n) 58 y.o. old male with h/o HCV, cirrhosis and portal hypertension who was admitted for recurrent GIB likely secondary to hypertensive portal gastropathy/varices on 01/22/2014. He is POD#1 TIPS, doing well. Active Problems: Hematemesis Plan: - Continue lactulose - Pain control PRN - Follow up US & IR clinic appointment in 3 months (we will coordinate). IR clinic #: [phone] - OK for discharge from IR perspective, thank you for allowing us to participate in this patient's care Zac Rollins MD #[id number] 01/29/2014 7:33 * Adelaide Fuentes RN - 01/28/2014 1232 EDT Care of patient and report from Saniya Corado IR RN. Pt is on table - sedated. He reports no pain. Pt in agreement for TIPS procedure with moderate sedation. Pt verbally ID'd. 1230 - Time out and procedure started. (Alfredo Rollins,Foster) 1300 - pt groggy. Pt on 5L NC oxygen levels occasionally drop to low 80's, even when pt awake. Dr. Rosales aware. 1520 - Procedure ended. Sheath removed from right neck at 1520. Pressure held by Dr. Rollins until 1525. Thrombix/gauze/tegaderm applied. Pt tolerated procedure very well with Versed 7.5 mg IV and Fentanyl 250 mcg IV over 205 minutes with occasional desaturation, even while pt awake & requesting more medication. Pt required chin thrust a few times during procedure, even while awake. No bleeding noted. Report called to Kellie on B4. Pt transferred to holding area in stable condition. He is on RA & asking about his post-procedure diet. * Louisa Gurrola MD - 01/28/2014 0936 EDT Medicine Progress Note Admit Date: 01/22/2014 11:35 Date of Service: 01/28/2014 CC/DDx: Hematemesis 24 Hour Events/Subjective: RYAN overnight. Pt continues to have nausea. He denies any further episodes melena or hematemesis. He had been tolerating a normal diet prior to being NPO for his tips procedure. Overall he feels wellbut is anxious for procedure. Medications: Scheduled Meds: carvedilol 6.25 mg BID (BREAKFAST/DINNER) cyanocobalamin 1,000 mcg DAILY folic acid 1 mg DAILY pantoprazole 40 mg DAILY pyridoxine 50 mg DAILY thiamine 100 mg DAILY Objective: VS: Temp: [36.2 ??C (97.2 ??F)-36.9 ??C (98.4 ??F)] , Pulse: [63-70] , Resp: [16-20] , BP: (134-156)/(63-81) , SpO2: [95 %-98 %] on RA I&O: Intake/Output Summary (Last 24 hours) at 01/28/14 0924 Last data filed at 01/28/14 0756 Gross per 24 hour Intake 1176.67 ml Output 0 ml Net 1176.67 ml Gen: NAD, sitting up in bed, breathing on room air HEENT: no scleral icterus, mucous membranes moist CV: Regular, normal S1/S2, without MGR Pulm: CTAB without wheezes or rales Abd: distended, tympanic to percussion, soft, no fluid wave, no tenderness, no hepatosplenomegaly Ext: WWP, pulses 2+ bilaterally Neuro: alert, oriented, no asterixis, full range of motion Psych: anxious, affect apropriate Labs: CBC: Recent Labs 01/26/14175201/27/1452101/27/14175101/28/14 05 WBC 2.53* 2.30* 2.94* 2.61* RBC 2.85* 3.08* 3.10* 3.08* HGB 8.0* 8.8* 8.8* 8.7* HCT 24.2* 26.2* 26.4* 26.1* MCV 85 85 85 85 MCH 27.9 28.6 28.3 28.2 MCHC 32.8 33.5 33.2 33.3 PLT 80* 79* 83* 84* NEUTROABS 1.46* 1.18* 1.74* -- BMP: Recent Labs 01/26/14 0501/27/1452101/28/14 05 NA 139 137 140 K 3.7 4.2 4.0 CL 110 105 110 CO2 22* 25 23* BUN 19 16 16 CREATININE 0.90 1.02 0.89 New Imaging: Impression: 1. Cirrhosis with findings of portal hypertension, including trace ascites. 2. Cystic 1.6 cm lesion within the pancreatic body, likely a sidebranch IPMN or pseudocyst if there is a history of pancreatitis. Recommend followup CT or MR in 6 months. 3. Severe lumbar levoscoliosis with evidence of prior posterior bony fusion. Assessment: 58 y.o. male w/ PMHx significant for HCV cirrhosis (serotype 1a) complicated by esophageal varices and portal gastropathy (s/p banding 2008), and multiple prior GI bleeds admitted for hematemesis. Capsule endoscopy positive only for gastropathy. Patient required several transfusions but is now HD stable w/o active bleed and will undergo TIPs today. Plan: GI Bleed and Acute Blood Loss Anemia in the setting of portal HTN and gastropathy: stable. Initially with hematemesis and melena but this is now back to patients baseline. TIPs procedure today. -s/p 3 Units PRBC - daily CBC - pantoprazole 40mg daily - s/p 7 day course ppx ceftriaxone - Coreg 6.25 BID - d/c Octreotide gtt Nausea/Vommiting/Decreased PO Intake: Controlled with zofran and compazine. Doing well on full diet. 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 negative work up and Heme consult last admission. Normal B12 and MMA levels. Likely 2/2 hepatic disease. Improved today over yesterday. - Continue B1, B6, and B12 PO supplementation Headache: - Tylenol 500mg Q6h PRN - Tramadol 50mg Q6 PRN PPX: Contraindicated due to bleed Code status: DNR/DNI Dispo: likely home in next 1-2 days Consults: GI ATTENDING ATTESTATION: Date of service: 01/28/2014 I have interviewed and examined the patient. I personally reviewed laboratories studies, radiographic studies, ECG, and prior records. I discussed the case with: the medicine house staff team. I agree with and edited (in Blue) the findings and plan of care as documented in the note above. LOUISA GURROLA MD [facility] Inpatient Service 01/28/2014 16:01 * Bishop Goins - 01/28/2014 0650 EDT Internal Medicine Progress Note Admit Date: 01/22/2014 11:35 ( LOS: 6 days ) Date of Service: 01/28/2014 Time of Patient Evaluation:0800 24 Hour Events: -NPO at Midnight -CT with contrast performed at 10:30AM Subjective: Denies Melena overnight, Chest Pain, SOB. Endorses Diarrhea, nausea, dizziness with ambulation, lower back pain, lightheadedness. Tolerating oral intake. Review of Systems: As Noted Above Medications: Reviewed; carvedilol; cyanocobalamin; folic acid; pantoprazole; pyridoxine; thiamine Objective: VS: Temp: [36.2 ??C (97.2 ??F)-36.9 ??C (98.4 ??F)] , Pulse: [63-70] , Resp: [16-20] , BP: (134-156)/(63-81) , SpO2: [95 %-98 %] on Room Air I&O: Intake/Output Summary (Last 24 hours) at 01/28/14 0651 Last data filed at 01/28/14 0632 Gross per 24 hour Intake 1977.92 ml Output 0 ml Net 1977.92 ml Physical Exam: Gen: Sitting up Stitching in Bed. In good mood, cooperative however very anxious about finding the time of when his TIPS procedure would be. CV: regular rate and rythym, normal S1 and S2; no m/r/g; Lungs: clear to auscultation bilaterally with no wheezing or crackles appreciated Abd: non tender to palpation; soft; distended; bowel sounds are present; Extr: no edema, WWP Labs: CBC: Recent Labs 01/26/14175201/27/1452101/27/141751 WBC 2.53* 2.30* 2.94* HGB 8.0* 8.8* 8.8* HCT 24.2* 26.2* 26.4* PLT 80* 79* 83* BMP: Recent Labs 01/26/1451801/27/14521 NA 139 137 K 3.7 4.2 CL 110 105 CO2 22* 25 BUN 19 16 CREATININE 0.90 1.02 Imaging: Abdominal CT w/ Contrast: Impression: 1. Cirrhosis with findings of portal hypertension, including trace ascites. 2. Cystic 1.6 cm lesion within the pancreatic body, likely a sidebranch IPMN or pseudocyst if there is a history of pancreatitis. Recommend followup CT or MR in 6 months. 3. Severe lumbar levoscoliosis with evidence of prior posterior bony fusion. 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 Capsule endoscopy confirms continued bleeding from portal gastrophathy. Interventional Radiology to proceed with TIPS procedure. Plan: Gastrointestinal Bleeding/Acute Blood Loss Anemia: Active Issue Upper GI bleeding most likely originating from Portal Gastropathy. Treatment includes reducing portal pressure to lessen bleeding, providing prophylactic antibiotics to prevent infection, and Transjugular Intrahepatic Portosytemic Shunt Procedure. As Mr. Urbina has already required 3 units of blood, must monitor H/H closely. -H/H Stable -CBC Daily -GI following, -Interventional Radiology TIPS procedure imminent -Ceftriaxone 1g Day 10/15 -Coreg 6.25mg BID -Hold Pantoprazole as no ulcerative source of bleeding noted. -Octreotide 500 mcg in NaCl .9% 250ml infusion. (Per GI: In this case Octreotide serves as an indicator of future responsiveness of TIPS procedure) Nausea: Active Issue -Zofran q4 PRN -Compazine q6 IV PRN Headache: Stable -Tylenol 500mg every 6 hours PRN -Tramadol 50mg every 6 hours Lower Back Pain: Stable Most likely related to underlying lumbar levoscoliosis and increased immobilization during hospitalstay. -Tylenol 500 mg q6 PRN Pancytopenia/Chronic Anemia: Most likely related to underlying liver cirrhosis. Saw hematology during last admission with a negative workup. -Continue Pyridoxine, Thiamine, Cyanocobalamin, Folic Acid VTE Prophylaxis: Pharmacologic Treatment Contraindicated, Encourage Ambulation Rosario: None at this time Lines: None at this time Diet: NPO Code: Limitation of Treatment Disposition: Will remain in house until TIPS procedure. Unclear at this time. Consults: LA NENA Goins 01/28/2014 6:51 * Manoj Valencia MD - 01/27/2014 0739 EDT Medicine Progress Note Admit Date: 01/22/2014 11:35 Date of Service: 01/27/2014 CC/DDx: Hematemesis 24 Hour Events/Subjective: RYAN o/n, no longer having melena per pt. Octreotide was started per GI rec overnight. Does admit to1 episode of nausea which resolved o/n. Currently denies CP, SOB, abdominal pain, or N/V/D. Pt is anxiously awaiting his likely TIPS. Review of Systems: as above Medications: Reviewed and documented in the medical record: Octreotide started per GI Objective: VS: Temp: [36.6 ??C (97.9 ??F)-37.3 ??C (99.1 ??F)] , Pulse: [62-86] , Resp: [16-20] , BP: (101-137)/(48-67) , SpO2: [97 %-99 %] on RA I&O: Intake/Output Summary (Last 24 hours) at 01/27/14 0739 Last data filed at 01/27/14 07 Gross per 24 hour Intake 1906.25 ml Output 1100 ml Net 806.25 ml Gen: AOx3, pale, NAD HEENT: NCAT, EOMI, PERRLA, MMM Neck: Supple, trachea midline, no JVD CV: Regular, normal S1/S2, without MGR Pulm: CTAB without wheezes or rales Abd: tense, tympanic, distended but NT, -HSM, +BS Ext: WWP, pulses 2+ bilaterally Neuro: AOx3, CN II-XII grossly intact Psych: thought content appropriate, speech non-pressured Labs: CBC: Recent Labs 01/26/14 0519 01/26/14 1753 01/27/14 0522 WBC 1.61* 2.53* 2.30* RBC 2.29* 2.85* 3.08* HGB 6.4* 8.0* 8.8* HCT 19.5* 24.2* 26.2* MCV 85 85 85 MCH 28.1 27.9 28.6 MCHC 33.0 32.8 33.5 PLT 70* 80* 79* NEUTROABS 0.72* 1.46* -- BMP: Recent Labs 01/25/14 0604 01/26/14 0519 01/27/14 0522 NA 140 139 137 K 3.8 3.7 4.2 CL 110 110 105 CO2 21* 22* 25 BUN 18 19 16 CREATININE 1.13 0.90 1.02 New Imaging: Capsule study: gastropathy in the stomach, petechiae in the duodenum of uncertain clinical significance, and maroon clots of blood in the stool. Assessment: 58 y.o. male w/ PMHx significant for HCV cirrhosis (serotype 1a) complicated by esophageal varices and portal gastropathy (s/p banding 2008), and multiple prior GI bleeds admitted for hematemesis. Heis s/p 1 unit PRBCs and capsule endoscopy with continued melena but remains HDS. Stable overnight. Plan: GI Bleed and Acute Blood Loss Anemia: Initially with hematemesis and melena but this is now back topatients baseline. Required 1 unit PRBC this admission s/p capsule endoscopy with plan for TIPS. Now with continued melena and acute blood loss anemia this AM. - GI consulted, appreciate recs and assistance - s/p 2 units PRBC yesterday - BID CBC - Holding pantoprazole as no ulcerative source and pancytopenia - CTX 1g day 6/7 for prophylaxis - Coreg 6.25 BID - Octreotide gtt Nausea/Vommiting/Decreased PO Intake: Controlled with zofran and compazine. Doing well on full diet. 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 Normal B12 and MMA levels. Likely 2/2 hepatic disease. Improved today over yesterday. - Will hold protonix as with last admission - Continue B1, B6, and B12 PO supplementation Headache: - Tylenol 500mg Q6h PRN - Tramadol 50mg Q6 PRN PPX: Contraindicated due to bleed Code status: DNR/DNI Dispo: Awaiting probable TIPS Consults: GI Abdiaziz Cruz MD--PGY1 Pager # [phone] 01/27/2014 7:39 ATTENDING ATTESTATION: Date of service: 01/27/2014 I have interviewed and examined the patient. I personally reviewed laboratories studies. I discussed the case with: the medicine house staff team. I agree with and edited (in blue) the findings and plan of care as documented in the note above. Total floor time I spent in the care of the patient today: 25 Minutes Manoj Valencia MD [facility] Inpatient Service 01/27/2014 11:32 * Bishop Goins - 01/26/2014 0909 EDT Internal Medicine Progress Note Admit Date: 01/22/2014 11:35 ( LOS: 4 days ) Date of Service: 01/26/2014 Time of Patient Evaluation: 0900 24 Hour Events: -Multiple Episode of Melena Overnight -Receiving 2 Units of Blood this AM -Consulted with GI Subjective: Was not able to get any sleep overnight. Had 4 melanotic stools. Endorses dizziness, headache and nausea. Denies vomiting, abdominal pain, chest pain, SOB. Tolerating Diet. Able to ambulate around floor. Review of Systems: As Noted Above Medications: Reviewed; carvedilol; cyanocobalamin; folic acid; pantoprazole; pyridoxine; thiamine Objective: VS: Temp: [35.6 ??C (96.1 ??F)-37.1 ??C (98.8 ??F)] , Pulse: [62-76] , Resp: [20] , BP: (98-112)/(50-88) , SpO2: [97 %-98 %] on RA Physical Exam: Gen: Sitting on side of bed eating breakfast of eggs and toast. Well developed, well nourished male, No acute distress, alert and oriented x 3, conversing appropriately CV: regular rate and rythym, normal S1 and S2; no m/r/g; Lungs: clear to auscultation bilaterally with no wheezing or crackles appreciated Abd: non tender to palpation; soft; distended; bowel sounds are present; Dullness to percussion. Extr: no edema, cyanosis, or clubbing; Labs: CBC: Recent Labs 01/24/14 0501/25/1460301/26/14 05 WBC 4.10 2.42* 1.61* HGB 7.9* 7.5* 6.4* HCT 23.9* 22.0* 19.5* PLT 130* 88* 70* BMP: Recent Labs 01/24/1452501/25/14 0601/26/14 05 NA 139 140 139 K 3.6 3.8 3.7 CL 110 110 110 CO2 20* 21* 22* BUN 21 18 19 CREATININE 1.15 1.13 0.90 Imaging: Capsule Endoscopy: Portal Gastropathy, petechiae in duodenum, and maroon clot of blood in stool. 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 Capsule endoscopy confirms continued bleeding. GI to proceed with TIPS procedure. Plan: Gastrointestinal Bleeding: Active Issue Upper GI bleeding could be originating from several areas including Portal Gastropathy vs esophageal varices vs Lana-Camp. The history described as well as recent imaging (Previous EGD this past January showing evidence of portal gastropathy) makes portal gastropathy highly likely. Treatment should include reducing portal pressure to lessen bleeding, providing prophylactic antibiotics to prevent infection, and considering procedures to help alleviate symptoms (EGD) vs alleviating portal hypertension (Transjugular Intrahepatic Portosytemic Shunt Procedure). As Mr. Urbina has already required 3 units of blood, must monitor H/H closely. -H/H: Dropped from yesterday -CBC q12 -GI following, TIPS procedure imminent -Ceftriaxone 1g Day / -Coreg 6.25mg BID -Hold Pantoprazole as no ulcerative source of bleeding noted. -Required 2 Units of Blood this AM Nausea: Active Issue -Zofran PRN -Compazine PRN Headache: Stable -Tylenol 500mg every 6 hours PRN -Tramadol 50mg every 6 hours Pancytopenia/Chronic Anemia: Most likely related to underlying liver cirrhosis. Saw hematology during last admission with a negative workup. -Continue Pyridoxine, Thiamine, IVPB, Cyanocobalamin, Folic Acid VTE Prophylaxis: Pharmacologic Treatment Contraindicated, Encourage Ambulation Rosario: None at this time Lines: None at this time Diet: NPO Code: Limitation of Treatment Disposition: Will remain in house until TIPS procedure. Unclear at this time. Consults: LA NENA Goins 01/26/2014 11:50 * Manoj Valencia MD - 01/26/2014 0837 EDT Medicine Progress Note Admit Date: 01/22/2014 11:35 Date of Service: 01/26/2014 CC/DDx: Hematemesis 24 Hour Events/Subjective: Pt had 3 episodes melena overnight that he did not inform nursing about. This AM he reports feelingdizzy and LH while ambulating. Denies CP, SOB, abdominal pain, or N/V/D. Review of Systems: as above Medications: Reviewed and documented in the medical record: No changes Objective: VS: Temp: [35.6 ??C (96.1 ??F)-37.1 ??C (98.8 ??F)] , Pulse: [62-76] , Resp: [20] , BP: (98-112)/(50-88) , SpO2: [97 %-98 %] on RA I&O: Intake/Output Summary (Last 24 hours) at 01/26/14 0837 Last data filed at 01/26/14 0815 Gross per 24 hour Intake 4925 ml Output 0 ml Net 4925 ml Gen: AOx3, pale, NAD HEENT: NCAT, EOMI, PERRLA, MMM Neck: Supple, trachea midline, no JVD CV: Regular, normal S1/S2, without MGR Pulm: CTAB without wheezes or rales Abd: tense, tympanic, distended but NT, -HSM, +BS Ext: WWP, pulses 2+ bilaterally Neuro: AOx3, CN II-XII grossly intact Psych: thought content appropriate, speech non-pressured Labs: CBC: Recent Labs 01/24/14 0526 01/25/14 0604 01/26/14 0519 WBC 4.10 2.42* 1.61* RBC 2.78* 2.58* 2.29* HGB 7.9* 7.5* 6.4* HCT 23.9* 22.0* 19.5* MCV 86 85 85 MCH 28.2 29.2 28.1 MCHC 32.9 34.2 33.0 PLT 130* 88* 70* BMP: Recent Labs 01/24/14 0526 01/25/14 0604 01/26/14 0519 NA 139 140 139 K 3.6 3.8 3.7 CL 110 110 110 CO2 20* 21* 22* BUN 21 18 19 CREATININE 1.15 1.13 0.90 New Imaging: Awaiting capsule study results Assessment: 58 y.o. male w/ PMHx significant for HCV cirrhosis (serotype 1a) complicated by esophageal varices and portal gastropathy (s/p banding 2008), and multiple prior GI bleeds admitted for hematemesis. Heis s/p 1 unit PRBCs and capsule endoscopy with continued melena but remains HDS. With persistent bleeding and worsening acute blood loss anemia now requiring more transfusion. Plan: GI Bleed and Acute Blood Loss Anemia: Initially with hematemesis and melena but this is now back topatients baseline. Required 1 unit PRBC this admission s/p capsule endoscopy with plan for TIPS. Now with continued melena and acute blood loss anemia this AM. - GI consulted, appreciate recs and assistance - Transfuse 2 units PRBC this AM - Change to BID CBC - Holding pantoprazole as no ulcerative source and pancytopenia - CTX 1g day 5/7 for prophylaxis - Coreg 6.25 BID Nausea/Vommiting/Decreased PO Intake: Controlled with zofran and compazine. Doing well on full diet. 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 Normal B12 and MMA levels. Likely 2/2 hepatic disease. - Will hold protonix as with last admission - Continue B1, B6, and B12 PO supplementation Worse pancytopenia. Anemia is likely explained by continued bleeding. Leukopenia and thrombocytopenia are likely secondary to cirrhosis. Was evaluated for similar previously by hematology. -Differential for today's CBC and follow CBC with differential daily Headache: - Tylenol 500mg Q6h PRN - Tramadol 50mg Q6 PRN PPX: Contraindicated due to bleed Code status: DNR/DNI Dispo: Awaiting probable TIPS Consults: LA NENA Cruz MD--PGY1 Pager # [phone] 01/26/2014 8:41 ATTENDING ATTESTATION: Date of service: 01/26/2014 I have interviewed and examined the patient. I personally reviewed laboratories studies.. I discussed the case with: the medicine house staff team. I agree with and edited (in blue) the findings and plan of care as documented in the note above. Total floor time I spent in the care of the patient today: 35 Minutes Manoj Valencia MD [facility] Inpatient Service 01/26/2014 12:31 * Manoj Valencia MD - 01/25/2014 1505 EDT Medicine Progress Note Admit Date: 01/22/2014 11:35 Date of Service: 01/25/2014 CC/DDx: Hematemesis 24 Hour Events/Subjective: - Small dark bowel movement overnight - Patient reports continued nausea but improved with medications - Is anxious about capsule study results - 10-point review of systems otherwise negative Review of Systems: as above Specifically denies chest pain, shortness of breath, dizziness or lightheadedness, nausea or vomiting. Has been out of bed and ambulate without issue. Medications: Reviewed and documented in the medical record: No changes Objective: VS: Temp: [35.6 ??C (96.1 ??F)-37.4 ??C (99.3 ??F)] , Pulse: [65-76] , Resp: [20-24] , BP: (82-112)/(41-88) , SpO2: [97 %-98 %] on RA I&O: Intake/Output Summary (Last 24 hours) at 01/25/14 1505 Last data filed at 01/25/14 0517 Gross per 24 hour Intake 480 ml Output 0 ml Net 480 ml Gen: AOx3, NAD HEENT: NCAT, EOMI, PERRLA, MM dry Neck: Supple, trachea midline, no JVD CV: Regular, normal S1/S2, without MGR Pulm: CTAB without wheezes or rales Abd: tense, tympanic, distended but NT, -HSM, +BS Ext: WWP, pulses 2+ bilaterally Neuro: AOx3, CN II-XII grossly intact Psych: thought content appropriate, speech non-pressured Labs: CBC: Recent Labs 01/23/14 2130 01/24/14 0526 01/25/14 0604 WBC 4.38 4.10 2.42* RBC 2.79* 2.78* 2.58* HGB 7.9* 7.9* 7.5* HCT 24.0* 23.9* 22.0* MCV 86 86 85 MCH 28.3 28.2 29.2 MCHC 32.9 32.9 34.2 PLT 124* 130* 88* BMP: Recent Labs 01/23/14 0545 01/24/14 0526 01/25/14 0604 NA 143 139 140 K 4.0 3.6 3.8 CL 114* 110 110 CO2 19* 20* 21* BUN 26 21 18 CREATININE 1.01 1.15 1.13 New Imaging: Awaiting capsule study results Assessment: 58 y.o. male w/ PMHx significant for HCV cirrhosis (serotype 1a) complicated by esophageal varices and portal gastropathy (s/p banding 2008), multiple prior GI bleeds admitted for hematemesis. With some continued melena but remains hemodynamically stable. Plan: GI Bleed and Acute Blood Loss Anemia: Initially with hematemesis and melena but this is now back topatients baseline. Required 1 unit PRBC this admission. Currently undergoing capsule endoscopy withpossible TIPS if no other source of bleeding identified. - Capsule study ongoing - GI consulted, appreciate recs and assistance - Continue daily CBC - Holding pantoprazole as no ulcerative source and pancytopenia - CTX 1g day 4/7 for prophylaxis - Coreg 6.25 BID Nausea/Vommiting/Decreased PO Intake: Controlled with zofran and compazine. Doing well on full diet. 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 Normal B12 and MMA levels. Likely 2/2 hepatic disease. - Will hold protonix as with last admission - Continue B1, B6, and B12 PO supplementation Headache: - Tylenol 500mg Q6h PRN - Tramadol 50mg Q6 PRN PPX: Contraindicated due to bleed Code status: DNR/DNI Dispo: Eventually home with Hepatology f/u. Awaiting capsule study results. Consults: LA NENA Hancock MD PGY-2 Pager # [phone] 01/25/2014 15:05 ATTENDING ATTESTATION: Date of service: 01/25/2014 I have interviewed and examined the patient. I personally reviewed laboratories studies. I discussed the case with: the medicine house staff team. I agree with and edited (in blue) the findings and plan of care as documented in the note above. Total floor time I spent in the care of the patient today: 25 Minutes Manoj Valencia MD [facility] Inpatient Service 01/25/2014 16:03 * Bishop Goins - 01/24/2014 1400 EDT Internal Medicine Progress Note Admit Date: 01/22/2014 11:35 ( LOS: 2 days ) Date of Service: 01/24/2014 Time of Patient Evaluation: 08 Summary: Alonzo Urbina is a 58 year old male with a history significant for 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) with know esophageal varices status post esophageal banding approximately 4 years ago and chronic occult GI bleeding presenting as either hematemesis, hematochezia, or melana with multiple Esophagogastroduodenoscopies, colonoscopies, and a capsule endoscopy performed and [facility] who presented to the ED yesterday after an episode of coffee ground emesis (1/4 cup) with clots. 24 Hour Events: -NPO at Midnight -Capsule endoscopy started at 8AM Subjective: Slept Well overnight, still has a headache although improved since yesterday. Has had no episodes of melena. Denies Nausea, vomiting, abdominal pain, dizziness, lightheadedness, Chest Pain, SOB. Tolerating Clear liquid diet. Review of Systems: As Noted Above Medications: Reviewed; carvedilol; cefTRIAXone (ROCEPHIN) IVPB (1 g premade bag); cyanocobalamin; folic acid; pantoprazole; pyridoxine; thiamine Objective: VS: Temp: [36.9 ??C (98.4 ??F)-37 ??C (98.6 ??F)] , Pulse: [52-54] , Resp: [18-20] , BP: (96-118)/(54-65) , SpO2: [96 %-99 %] on Room Air I&O: Intake/Output Summary (Last 24 hours) at 01/24/14 1400 Last data filed at 01/24/14 1134 Gross per 24 hour Intake 2814 ml Output 700 ml Net 2114 ml Physical Exam: Gen: Standing up pacing in his room with capsule endoscopy equipment on. Well developed, well nourished male, No acute distress, alert and oriented x 3, conversing appropriately CV: regular rate and rythym, normal S1 and S2; no m/r/g; no JVD; Lungs: clear to auscultation bilaterally with no wheezing or crackles appreciated Abd: non tender to palpation; soft; distended; bowel sounds are present; Dullness to percussion Extr: no edema, cyanosis, or clubbing; Skin: no lesions or rashes noted; warm and dry Labs: CBC: Recent Labs 01/23/14 1357 01/23/14 2130 01/24/14 0526 WBC 4.56 4.38 4.10 HGB 8.2* 7.9* 7.9* HCT 24.9* 24.0* 23.9* PLT 146 124* 130* BMP: Recent Labs 01/22/14 1004 01/23/14 0545 01/24/14 0526 NA 140 143 139 K 4.8 4.0 3.6 CL 108 114* 110 CO2 23* 19* 20* BUN 31* 26 21 CREATININE 0.80 1.01 1.15 Glucose Recent Labs 01/22/14 1651 GLUCOSEFINGE 185* Coags: Recent Labs 01/22/14 1004 PROTIME 12.5* INR 1.2* PTT 25* Imaging: No New Imaging Assessment: Alonzo Urbina is a 58 year old male with a history significant for 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 Next steps dependent upon results of capsule endoscopy. If Negative GI will proceed with TIPS procedure. Plan: Gastrointestinal Bleeding: Upper GI bleeding could be originating from several areas including Portal Gastropathy vs esophageal varices vs Lana-Cmap. The history described as well as recent imaging (Previous EGD this past January showing evidence of portal gastropathy) makes portal gastropathy highly likely. Treatment should include reducing portal pressure to lessen bleeding, providing prophylactic antibiotics to prevent infection, and considering procedures to help alleviate symptoms (EGD) vs alleviating portal hypertension (Transjugular Intrahepatic Portosytemic Shunt Procedure). As Mr. Urbina has already required 1 unit of blood, must monitor H/H closely. -H/H now stable: CBC Daily -GI following -Ceftriaxone 1g Day / -Nadolol changed to Coreg 6.25mg BID -Hold Pantoprazole as no ulcerative source of bleeding noted. -Required 1 Unit of Blood Nausea: -Zofran PRN -Compazine PRN Headache: -Tylenol 500mg every 6 hours PRN -Tramadol 50mg every 6 hours Pancytopenia/Chronic Anemia: Most likely related to underlying liver cirrhosis. Saw hematology during last admission with a negative workup. -Continue Pyridoxine, Thiamine, IVPB, Cyanocobalamin, Folic Acid VTE Prophylaxis: Contraindicated Rosario: None at this time Lines: None at this time Diet: NPO Code: Limitation of Treatment Disposition: Awaiting results of Capsule endoscopy. Consults: LA NENA Goins 01/24/2014 14:00 * Manoj Valencia MD - 01/24/2014 0954 EDT Medicine Progress Note Admit Date: 01/22/2014 11:35 Date of Service: 01/24/2014 CC/DDx: Hematemesis 24 Hour Events/Subjective: RYAN o/n. Made NPO at MN. Began capsule endoscopy at 8AM today. Denies [place], CP, SOB, Abdominal pain, hematemesis or melena overnight. Does admit to continued, albeit improved, nausea. Review of Systems: as above Medications: Reviewed and documented in the medical record: Changes notable for nadolol changed to coreg Objective: VS: Temp: [36.6 ??C (97.9 ??F)-37 ??C (98.6 ??F)] , Pulse: [52-56] , Resp: [18-20] , BP: (96-128)/(54-60) , SpO2: [96 %-99 %] I&O: Intake/Output Summary (Last 24 hours) at 01/24/14 0954 Last data filed at 01/24/14 0900 Gross per 24 hour Intake 2553 ml Output 700 ml Net 1853 ml Gen: AOx3, NAD HEENT: NCAT, EOMI, PERRLA, MM dry Neck: Supple, trachea midline, no JVD CV: RRR, normal S1/S2, without MGR Pulm: CTAB without wheezes or rales Abd: tense, tympanic, distended but NT, -HSM, +BS Ext: WWP, pulses 2+ bilaterally Neuro: AOx3, CN II-XII grossly intact Psych: AOx3, thought content appropriate, speech non-pressured Labs: CBC: Recent Labs 01/22/14 1004 01/23/14 1357 01/23/14 2130 01/24/14 0526 WBC 4.31 < > 4.56 4.38 4.10 RBC 2.91* < > 2.91* 2.79* 2.78* HGB 8.2* < > 8.2* 7.9* 7.9* HCT 25.1* < > 24.9* 24.0* 23.9* MCV 86 < > 86 86 86 MCH 28.3 < > 28.3 28.3 28.2 MCHC 32.7* < > 33.0 32.9 32.9 PLT 116* < > 146 124* 130* NEUTROABS 2.63 -- -- -- -- < > = values in this interval not displayed. BMP: Recent Labs 01/22/14 1004 01/23/14 0545 01/24/14 0526 NA 140 143 139 K 4.8 4.0 3.6 CL 108 114* 110 CO2 23* 19* 20* BUN 31* 26 21 CREATININE 0.80 1.01 1.15 CALCIUM 8.7 -- -- CALCCA 9.8 -- -- LABALBU 3.3* -- -- New Imaging: None Assessment: 58 y.o. male w/ PMHx significant for HCV cirrhosis (serotype 1a) complicated by esophageal varices and portal gastropathy (s/p banding 2008), multiple prior GI bleeds admitted for hematemesis. Plan: GI Bleed: With hematemesis and melena. Received 1 unit PRBC this admission. Currently undergoing capsule endoscopy with possible TIPS pending results. Blood loss anemia stable this AM with no BMx24 hours - Capsule study ongoing - GI consulted, appreciate recs and assistance - Change CBC QD - Holding pantoprazole as no ulcerative source and pancytopenia - CTX 1g day 3/ for prophylaxis - Coreg 6.25 BID Nausea/Vommiting/Decreased PO Intake: s/p 1L LR, controlled with zofran and compazine. Pt wishing to ADAT again this AM. - Zofran PRN - Compazine PRN - will ADAT after capsule study maintenance IVF while NPO Chronic Anemia 2/2 HCV Cirrhosis: negative work up and Heme consult last admission. Normal B12 and MMA levels. Likely 2/2 hepatic disease. - Will hold protonix as with last admission - Continue B1, B6, and B12 PO supplementation Headache: - Tylenol 500mg Q6h PRN - Tramadol 50mg Q6 PRN PPX: Contraindicated due to bleed Code status: DNR/DNI Dispo: Eventually home with Hepatology f/u. Consults: GI Abdiaziz Cruz MD--PGY1 Pager # [phone] 01/24/2014 9:54 ATTENDING ATTESTATION: Date of service: 01/24/2014 I have interviewed and examined the patient. I personally reviewed laboratories studies. I discussed the case with: the medicine house staff team. I agree with and edited (in blue) the findings and plan of care as documented in the note above. Total floor time I spent in the care of the patient today: 25 Minutes Manoj Valencia MD [facility] Inpatient Service 01/24/2014 12:01 * Margareth Lenz RN - 01/23/2014 1522 EDT Initial Case Management/Social Work Assessment and Discharge Plan /Readmission Risk Assessment Physician working diagnosis: Hematemesis, nausea; Hgb 7.1 ln 01/21. Possible variceal bleed. Hx of cirrhosis, esophageal varices, multiple previous GI bleeds. Giconsult, CBC Q 8 hours, IVF, IV antibiotics. Patient (or designee) understanding of admission: Patient verbalizes understanding of reason for admission; states it is an ongoing problem. Patient Contact Information: Significant other--see facesheet MEDICAL AND COMMUNITY SERVICES: Primary Care Provider: Kamala Rosado MD Specialists seen on a consistent basis: Skilled home care services: DME Provider: Pharmacy: [facility] in [place] LIVING ARRANGEMENTS AND ACCESSIBILITY ISSUES: House Are there any home access issues? No What in home social supports are available to the patient? Lives with significant other in [place]. ADVANCED DIRECTIVES, POA &/or COLST IN PLACE: No CULTURAL, LATTER DAY and/or LANGUAGE factors affecting health care/discharge planning:: N/A FUNCTIONAL & PSYCHOSOCIAL INFORMATION: Independent with all mobility; states he has been very tired due to bleeding & unable to do thethings he enjoys. MEDICAL INSURANCE IN PLACE: Yes Medicare Type: A;B DISCHARGE RISK ASSESSMENT: None of the above risks identified Total # selected above: Score: Zero Tentative plan to address the risk of re-hospitalization for those at HIGH or MODERATE RISK: INITIAL TRANSITION PLAN: Transportation from hospital in place? Yes,Significant other can assist. Post hospitalization Plan: Return to independent living New DME Requirements: No Initial plan discussed with: Met with patient; his SO also present; states he continues with bleeding rectally--no smore vomiting. States this problem has been ongoing with frequent admissions; hopesthat tomorrow's test may help solve the problem. Await results of endoscopy tomorrow. Will continueto follow and assist as indicated. Margareth Lenz RN 01/23/2014 15:22 * Bishop Goins - 01/23/2014 0938 EDT Internal Medicine Progress Note Admit Date: 01/22/2014 11:35 ( LOS: 1 day ) Date of Service: 01/23/2014 Time of Patient Evaluation: 829 Summary: Alonzo Urbina is a 58 year old male with a history significant for 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) with know esophageal varices status post esophageal banding approximately 4 years ago and chronic occult GI bleeding presenting as either hematemesis, hematochezia, or melana with multiple Esophagogastroduodenoscopies, colonoscopies, and a capsule endoscopy performed and [facility] who presented to the ED yesterday after an episode of coffee ground emesis (1/4 cup) with clots. 24 Hour Events: -Episode of Melanotic Stools -Received 1 unit of blood after drop in Hemoglobin from 8.2 to 6.8. Hemoglobin 7.5 after transfusion. Subjective: Mr. Urbina is experiencing continued nausea and fatigue this morning. Notes headache. He is very anxious about his bleeding and wants to have as much done to prevent his bleeding from occuring during this hospital stay for fear that it will recur and he will be back in the same condition. Denies Fever, Chest Pain, SOB, vomitting or abdominal pain. Review of Systems: As noted above. Medications: Reviewed; cefTRIAXone (ROCEPHIN) IVPB (1 g premade bag); cyanocobalamin; folic acid; nadolol; pantoprazole; pyridoxine; thiamine Objective: VS: Temp: [35.9 ??C (96.6 ??F)-37.2 ??C (99 ??F)] , Pulse: [60-76] , Resp: [12-20] , BP: (91-137)/(50-81) , SpO2: [98 %-100 %] on Room Air I&O: Intake/Output Summary (Last 24 hours) at 01/23/14 09 Last data filed at 01/23/14 0631 Gross per 24 hour Intake 50 ml Output 1550 ml Net -1500 ml Note: NPO Physical Exam: Gen: Resting in bed, Anxious, No acute distress, alert and oriented x 3, conversing appropriately Head: Normocephalic, atraumatic CV: regular rate and rythym, normal S1 and S2; no m/r/g; no JVD Lungs: clear to auscultation bilaterally with no wheezing or crackles appreciated Abd: non tender to palpation; soft; moderately distended with dullness to percussion; hypoactive bowel sounds Extr: no edema, cyanosis, WWP Skin: no lesions or rashes noted; warm and dry Labs: CBC: Recent Labs 01/22/14 1004 01/22/14 2124 01/23/14 0545 WBC 4.31 3.79* 3.80* HGB 8.2* 6.8* 7.5* HCT 25.1* 20.9* 22.7* PLT 116* 101* 106* BMP: Recent Labs 01/22/14 1004 01/23/14 0545 NA 140 143 K 4.8 4.0 CL 108 114* CO2 23* 19* BUN 31* 26 CREATININE 0.80 1.01 Glucose Recent Labs 01/22/14 1651 GLUCOSEFINGE 185* Coags: Recent Labs 01/22/14 1004 PROTIME 12.5* INR 1.2* PTT 25* Imaging: No new Imaging Assessment: Alonzo Urbina is a 58 year old male with a history significant for 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 Plan: Gastrointestinal Bleeding: Upper GI bleeding could be originating from several areas including Portal Gastropathy vs esophageal varices vs Lana-Camp. The history described as well as recent imaging (Previous EGD this past January showing evidence of portal gastropathy) makes portal gastropathy highly likely. Treatment should include reducing portal pressure to lessen bleeding, providing prophylactic antibiotics to prevent infection, and considering procedures to help alleviate symptoms (EGD) vs alleviating portal hypertension (Transjugular Intrahepatic Portosytemic Shunt Procedure). As Mr. Urbina has already required 1 unit of blood, must monitor H/H closely. -CBC every 8 hours -GI consulted -Ceftriaxone 1g Day 05/18 -Nadolol changed to Coreg 6.25mg BID -Hold Pantoprazole as no ulcerative source of bleeding noted. -Required 1 Unit of Blood Nausea: -Zofran PRN -Compazine PRN Headache: -Tylenol 500mg every 6 hours PRN -Tramadol 50mg every 6 hours Pancytopenia/Chronic Anemia: Most likely related to underlying liver cirrhosis. Saw hematology during last admission with a negative workup. -Continue Pyridoxine, Thiamine, IVPB, Cyanocobalamin, Folic Acid VTE Prophylaxis: Contraindicated Rosario: None at this time Lines: None at this time Diet: NPO Code: Limitation of Treatment Disposition: Home with Hepatology follow up. Consults: LA NENA Goins 01/23/2014 9:23 * Manoj Valencia MD - 01/23/2014 0905 EDT Medicine Progress Note Admit Date: 01/22/2014 11:35 Date of Service: 01/23/2014 CC/DDx: Hematemesis 24 Hour Events/Subjective: Transfused 1 unit PRBC for Hgb drop from 8.2 to 6.8 overnight. Hgb 7.5 post-transfusion. Pt also with melena o/n. Reports continued nausea but denies SANFORD, LH, CP, SOB, abdominal pain, or vomiting. Continued to endorse fatigue. Spoke with PCP office. Pt on coreg at home as new insurance covers this and his finacee filled his original coreg script. Spoke with GI this AM who recommend coreg over nadolol. Review of Systems: as above Medications: Reviewed and documented in the medical record: Changes notable for 1unit PRBC o/n Objective: VS: Temp: [35.9 ??C (96.6 ??F)-37.2 ??C (99 ??F)] , Pulse: [60-76] , Resp: [12-20] , BP: (91-137)/(50-81) , SpO2: [98 %-100 %] I&O: Intake/Output Summary (Last 24 hours) at 01/23/14 09 Last data filed at 01/23/14 0631 Gross per 24 hour Intake 50 ml Output 1550 ml Net -1500 ml Gen: AOx3, NAD HEENT: NCAT, EOMI, PERRLA, MM dry Neck: Supple, trachea midline, no JVD CV: RRR, normal S1/S2, without MGR Pulm: CTAB without wheezes or rales Abd: tense, tympanic, distended but NT, -HSM, +BS Ext: WWP, pulses 2+ bilaterally Neuro: AOx3, CN II-XII grossly intact Psych: AOx3, thought content appropriate, speech non-pressured Labs: CBC: Recent Labs 01/22/14 1004 01/22/14 2124 01/23/14 0545 WBC 4.31 3.79* 3.80* RBC 2.91* 2.44* 2.66* HGB 8.2* 6.8* 7.5* HCT 25.1* 20.9* 22.7* MCV 86 86 85 MCH 28.3 27.9 28.2 MCHC 32.7* 32.5* 33.1 PLT 116* 101* 106* NEUTROABS 2.63 -- -- BMP: Recent Labs 01/22/14 1004 01/23/14 0545 NA 140 143 K 4.8 4.0 CL 108 114* CO2 23* 19* BUN 31* 26 CREATININE 0.80 1.01 CALCIUM 8.7 -- CALCCA 9.8 -- LABALBU 3.3* -- Coags: Recent Labs 01/22/14 1004 PROTIME 12.5* INR 1.2* PTT 25* LFT: Recent Labs 01/22/14 1004 TBIL 0.7 ALKPHOS 80 AST 53* ALT 54 New Imaging: None Assessment: 58 y.o. male w/ PMHx significant for HCV cirrhosis (serotype 1a) complicated by esophageal varices and portal gastropathy (s/p banding 2008), multiple prior GI bleeds admitted for hematemesis. Plan: GI Bleed: Concern for variceal bleed vs gastropathy vs Lana-Camp. Single episode and recent history increases suspicion of gastropathy related bleed. Now with melena. S/p 1 unit PRBC. Discuss with GI and IR. Given bleeding is greater in quantity (drop in H+H) would EGD be of use or should we pursue TIPS this admission as he is not currently stable for discharge given active bleeding, unstable H+H. - GI consulted, appreciate recs and assistance - CBC Q8h - Holding pantoprazole as no ulcerative source and pancytopenia - CTX 1g day 2/7 for prophylaxis - Change nadolol to coreg 6.25 BID Nausea/Vommiting/Decreased PO Intake: s/p 1L LR, controlled with zofran and compazine. Pt wishing to ADAT this AM. 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 Normal B12 and MMA levels. Likely 2/2 hepatic disease. cirrhosis related thrombocytopenia stable - Will hold protonix as with last admission - Continue B1, B6, and B12 PO supplementation Headache: - Tylenol 500mg Q6h PRN - Tramadol 50mg Q6 PRN PPX: Contraindicated due to bleed Code status: DNR/DNI Dispo: Eventually home with Hepatology f/u. Consults: LA NENA Cruz MD--PGY1 Pager # [phone] 01/23/2014 9:09 ATTENDING ATTESTATION: Date of service: 01/23/2014 I have interviewed and examined the patient. I personally reviewed laboratories studies. I discussed the case with: the medicine house staff team. I agree with and edited (in blue) the findings and plan of care as documented in the note above. Total floor time I spent in the care of the patient today: 35 Minutes Manoj Valencia MD [facility] Inpatient Service 01/23/2014 9:23 documented in this encounter H&P Notes * Zac Rollins MD - 01/28/2014 1159 EDT Interventional Radiology Pre-Sedation H&P Update The preoperative history and physical which was performed within 30 days of this procedure has beenreviewed and the clinically appropriate elements of the physical examination have been repeated. There are no changes to the documented history and physical or if so such changes are documented below. In brief, Alonzo Urbina is a 58M with HCV and cirrhosis, presenting with recurrent, chronic GI bleed/melena. GI consulted and feels bleed is likely secondary to hypertensive portal gastropathy. Patient referred for TIPS. Plan: - Consent obtained - Full code during procedure per discussion with patient - OK for planned TIPS Zac Rollins MD #[id number] * Bishop Goins - 01/25/2014 1204 EDT Internal Medicine Progress Note Admit Date: 01/22/2014 11:35 ( LOS: 3 days ) Date of Service: 01/25/2014 Time of Patient Evaluation: 0830 24 Hour Events: -Episode of Melanotic Stools Overnight -Finished Capsule Endoscopy Subjective: Has had some nausea after eating eggs and toast for breakfast. Slept well overnight. No longer has a headache. Denies vomiting, abdominal pain, dizziness, chest pain, or SOB. Has ambulated up and down [place]. Review of Systems: As Noted Above Medications: Reviewed; carvedilol; cefTRIAXone (ROCEPHIN) IVPB (1 g premade bag); cyanocobalamin; folic acid; pantoprazole; pyridoxine; thiamine Objective: VS: Temp: [36.2 ??C (97.2 ??F)-37.4 ??C (99.3 ??F)] , Pulse: [57-65] , Resp: [20-24] , BP: (82-104)/(41-56) , SpO2: [98 %] on Room Air I&O: Intake/Output Summary (Last 24 hours) at 01/25/14 1205 Last data filed at 01/25/14 0517 Gross per 24 hour Intake 480 ml Output 0 ml Net 480 ml Physical Exam: Gen: Resting Comfortably in bed. In a good mood. Cooperative. Well developed, well nourished male, No acute distress, alert and oriented x 3, conversing appropriately CV: regular rate and rythym, normal S1 and S2; no m/r/g; no JVD; no bruits Lungs: clear to auscultation bilaterally with no wheezing or crackles appreciated Abd: non tender to palpation; soft; distended; bowel sounds are present; Dullness to percusion Extr: no edema, cyanosis, or clubbing; pulses 2+ and equal bilaterally Skin: no significant lesions or rashes noted; warm and dry Labs: CBC: Recent Labs 01/23/14 2130 01/24/14 0526 01/25/14 0604 WBC 4.38 4.10 2.42* HGB 7.9* 7.9* 7.5* HCT 24.0* 23.9* 22.0* PLT 124* 130* 88* BMP: Recent Labs 01/23/14 0545 01/24/14 0526 01/25/14 0604 NA 143 139 140 K 4.0 3.6 3.8 CL 114* 110 110 CO2 19* 20* 21* BUN 26 21 18 CREATININE 1.01 1.15 1.13 Glucose Recent Labs 01/22/14 1651 GLUCOSEFINGE 185* Coags: No results found for this basename: PROTIME, INR, PTT, in the last 72 hours Imaging: No new imaging. 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 Next steps dependent upon results of capsule endoscopy. If Negative GI will proceed with TIPS procedure. Plan: Gastrointestinal Bleeding: Active Issue Upper GI bleeding could be originating from several areas including Portal Gastropathy vs esophageal varices vs Lana-Camp. The history described as well as recent imaging (Previous EGD this past January showing evidence of portal gastropathy) makes portal gastropathy highly likely. Treatment should include reducing portal pressure to lessen bleeding, providing prophylactic antibiotics to prevent infection, and considering procedures to help alleviate symptoms (EGD) vs alleviating portal hypertension (Transjugular Intrahepatic Portosytemic Shunt Procedure). As Mr. Urbina has already required 1 unit of blood, must monitor H/H closely. -H/H: Dropped slightly from yesterday most likely hemodilution although noted darker stools this morning. Continue to trend. -CBC Daily -GI following -Ceftriaxone 1g Day 07/16 -Coreg 6.25mg BID -Hold Pantoprazole as no ulcerative source of bleeding noted. -Required 1 Unit of Blood Nausea: Active Issue -Zofran PRN -Compazine PRN Headache: Stable -Tylenol 500mg every 6 hours PRN -Tramadol 50mg every 6 hours Pancytopenia/Chronic Anemia: Most likely related to underlying liver cirrhosis. Saw hematology during last admission with a negative workup. -Continue Pyridoxine, Thiamine, IVPB, Cyanocobalamin, Folic Acid VTE Prophylaxis: Pharmacologic Treatment Contraindicated, Encourage Ambulation Rosario: None at this time Lines: None at this time Diet: NPO Code: Limitation of Treatment Disposition: Awaiting results of Capsule endoscopy. Consults: LA NENA Goins 01/25/2014 12:05 * Manoj Valencia MD - 01/22/2014 9099 EDT Internal Medicine Admission H&P Admission Date: 01/22/2014 Date of Service: 01/22/2014 PCP: Kamala Roasdo MD CC: Hematemesis Subjective: HPI: 58 y.o. male w/ PMHx significant for HCV cirrhosis (serotype 1a) complicated by esophageal varices (s/p banding 2008), multiple prior GI bleeds (last admission 01/08/2014, s/p negative tagged RBCscan 06/2013, EtOH abuse, and chronic thrombocytopenia presented to the ED after an episode of hematemesis. Pt was recently discharged on 01/12 after workup of a GI bleed determined to be 2/2 portal gastropathy. He underwent EGD 01/08, after a positive NG lavage, which revealed portal gastropathy without any culprit varices. During that admission he underwent [id number] which was also normal. As his melena improved he was discharged home on nadolol. Pt reports he was compliant (which his fiancee verifies) with medication and EtOH abstinence at home. He reported resolution of melena at home after discharge until returning on 01/17. The pt did not seek medical care because It was less than the last time. Melena continued until 01/20 and has not reoccurred since then. On 01/21 he reports his Hgb was 7.1 at his PCP office and that he was told to come in to the ED for a transfusion. The pt refused to come in, wanting to wait until his f/u appointment to have a Hgb recheck at the end of January. However, this AM he awoke with nausea and worsening fatigue and subsequently had an episodeof hematemesis. Pt reports it was brown and dark red. In the ED, the pt is resting in bed. He denies any SANFORD, CP, SOB, abdominal pain, or N/V/D. Reports a2-3 pound weight loss 2/2 decreased PO intake. He also reports having a normal BM last night. Review of Systems A 10-point review of systems was conducted and is negative, except as per the HPI. PMH PSH Past Medical History Diagnosis Date ??? Anemia [...] 1981 ??? Shoulder surgery 20 years ago Social History Family history History Social History ??? Marital Status: Spouse Name: N/A Number of Children: N/A ??? Years of Education: N/A Occupational History ??? Not on file. Social History Main Topics ??? Smoking status: Never Smoker ??? Smokeless tobacco: Never Used ??? Alcohol Use: No ??? Drug Use: No ??? Sexual Activity: Yes Partners: Female Other Topics Concern ??? Not on file Social History Narrative ??? No narrative on file Family History Problem Relation Age of Onset ??? Cancer Mother ??? Breast Cancer Mother ??? Alcohol Abuse Father ??? Cancer Father ??? Diabetes Father ??? Cancer Sister ??? Crohn's Disease Sister ??? Diabetes Sister ??? Cancer Brother ??? Anesth Problems Brother ??? Cancer Sister ??? Anesth Problems Sister Current Facility-Administered Medications Medication Route Frequency ??? octreotide (SANDOSTATIN) 500 mcg in sodium chloride (NS) 0.9 % 250 mL infusion intravenous CONTINUOUS ??? ondansetron (PF) (ZOFRAN) injection 4 mg intravenous Q4H PRN Current Outpatient Prescriptions Medication Sig Dispense Refill ??? FERROUS FUMARATE (IRON ORAL) Take by mouth. ??? FOLIC ACID ORAL Take 5 mg by mouth daily. ??? nadolol (CORGARD) 20 mg tablet Take 20 mg by mouth daily. Allergies Allergies Allergen Reactions ??? Ambien [Zolpidem] Sleep-driving Objective: Blood pressure 123/63, pulse 64, temperature 36.7 ??C (98 ??F), temperature source Oral, resp. rate20, weight 88.451 kg (195 lb), SpO2 98.00%. Wt Readings from Last 1 Encounters: 01/22/14 88.451 kg (195 lb) Gen: AOx3, NAD HEENT: NCAT, EOMI, PERRLA, MM dry Neck: Supple, trachea midline, no JVD CV: RRR, normal S1/S2, without MGR Pulm: CTAB without wheezes or rales Abd: tense, tympanic, distended but NT, -HSM, +BS Ext: WWP, pulses 2+ bilaterally Neuro: AOx3, CN II-XII grossly intact Psych: AOx3, thought content appropriate, speech non-pressured ECG: None Data Review: CBC: Recent Labs 01/22/14 1004 WBC 4.31 RBC 2.91* HGB 8.2* HCT 25.1* MCV 86 MCH 28.3 MCHC 32.7* PLT 116* NEUTROABS 2.63 BMP: Recent Labs 01/22/14 1004 NA 140 K 4.8 CL 108 CO2 23* BUN 31* CREATININE 0.80 CALCIUM 8.7 CALCCA 9.8 LABALBU 3.3* Coags: Recent Labs 01/22/14 1004 PROTIME 12.5* INR 1.2* PTT 25* LFT: Recent Labs 01/22/14 1004 TBIL 0.7 ALKPHOS 80 AST 53* ALT 54 Radiology Studies: None Assessment: 58 y.o. male w/ PMHx significant for HCV cirrhosis (serotype 1a) complicated by esophageal varices and portal gastropathy (s/p banding 2008), multiple prior GI bleeds admitted for hematemesis. Plan: Hematemesis: Concern for variceal bleed vs gastropathy vs Lana-Camp. Single episode and recent history increases suspicion of gastropathy related bleed. - GI consulted, appreciate recs and assistance - CBC Q8h - Holding pantoprazole as no ulcerative source and pancytopenia - CTX 1g day 04/17 for prophylaxis - 2 large bore IV's in place - 4 U PRBC on hold (pt w/ anti-E and anti-C) - Zofran PRN nausea - Continue nadolol Nausea/Vommiting/Decreased PO Intake: - Zofran as above - 1L LR bolus Chronic Anemia 2/2 HCV Cirrhosis: negative work up and Heme consult last admission. Normal B12 and MMA levels. Likely 2/2 hepatic disease. - Will hold protonix as with last admission - Continue B1, B6, and B12 PO supplementation Headache: - Tylenol 500mg Q6h PRN - Tramadol 50mg Q6 PRN PPX: Contraindicated due to bleed Code status: DNR/DNI Dispo: Eventually home with Hepatology f/u. Consults: LA NENA Cruz MD--PGY1 Pager # [phone] 01/22/2014 13:34 ATTENDING ATTESTATION: Date of service: 01/22/2014 I have interviewed and examined the patient. I personally reviewed laboratories studies and prior records. I discussed the case with: the medicine house staff team and Dr Bernal in the ED. I agree with and edited (in blue) the findings and plan of care as documented in the note above. Total floor time I spent in the care of the patient today: 70 Minutes Manoj Valencia MD [facility] Inpatient Service 01/22/2014 14:25 documented in this encounter Procedure Notes * GRAVITY FLOW IRRIGATOR, SCAN 2 - 02/15/2014 0332 ESTAssociated Order(s): PROCEDURE REPORTS - SCANNED * Zac Rollins MD - 01/28/2014 3459 EDT IR Brief Procedure Note Attending: Bobby Machine Maintenance Technician: April Rollins Pre-op Dx: Hepatitis C, Cirrhosis, Hypertensive Portal Gastropathy Post-op Dx: Same Procedure: TIPS Anesthesia: Local and IV sedation Access: RIJV Hemostasis: Thrombix Findings: 1) US: Patent right internal jugular vein. Successful US-guided micropuncture. 2) Successful TIPS creation using 10 x 60 mm covered stent, and nested 12 x 40 mm and 10 x 80 mm uncovered stents. 3) Post-TIPS pressure measurements: - Main portal vein: 26 mm Hg - Right hepatic vein: 20 mm Hg - Right atrium: 20 mm Hg - Portosystemic gradient: 6 mm Hg EBL: Trace Fluoro time: 71:30 min Contrast: 160 cc Specimen: none Labs: none Foreign Bodies: none Complications: none Disposition: Stable to recovery Plan: - Lactulose as ordered - May discharge tomorrow if doing well - Follow up US and IR clinic appointment in 3 months Zac Rollins MD #[id number] documented in this encounter Consult Notes * Shaina Jenkins MD - 01/25/2014 1648 EDT GI CONSULT FOLLOW UP NOTE Author: Kam Alejandro MD Attending Physician: Manoj Valencia MD Identifying Statement: - Chronic GI gleed, likely 2/2 hypertensive portal gastropathy 24hr Events/Subjective: - Large episode of melena overnight and again today Objective: Last Vitals: BP 112/88 Pulse 76 Temp(Src) 35.6 ??C (96.1 ??F) (Tympanic) Resp 20 Ht 162.6 cm (64) Wt 89.313 kg (196 lb 14.4 oz) BMI 33.78 kg/m2 SpO2 97% Filed Vitals: 01/24/14 1813 01/24/14 2252 01/25/14 0517 01/25/14 1426 BP: 98/54 82/41 104/49 112/88 Pulse: 65 76 Temp: 37.4 ??C (99.3 ??F) 36.5 ??C (97.7 ??F) 35.6 ??C (96.1 ??F) TempSrc: Tympanic Resp: 24 20 Height: Weight: SpO2: 98% 98% 97% General: well appearing, in NAD HEENT: no conjunctival icterus Resp: CTAB CV: RRR, no m/g/r Abd: Soft, nt, nd, +BS Ext: WWP, no edema Data: Labs/Meds: Hb continues to trend down slowly Imaging See PRISM Procedures: See initial consult note for full list of report Capsule study shows gastropathy in the stomach, petechiae in the duodenum of uncertain clinical significance, and maroon clots of blood in the stool. ASSESSMENT and RECOMMENDATIONS: Alonzo Urbina is a 58 y.o. male with chronic GI bleed, likely secondary to hypertensive portal gastropathy - As this point we will likely pursue a TIPS procedure early next week but will continue our discussion of risks/benefits this weekend - Currently patient has a transfusion requirement and should remain in house. Plan discussed with patient and the team. My Assessment and Plan were discussed with my Attending, Dr. Jenkins who agrees with the above. Kam Alejandro MD GI and Hepatology Fellow Pager [phone] Attestation statement: I saw and examined the patient with the resident/fellow. I agree with the findings and plan of care documented in the resident's/fellow's note. * Kam Alejandro MD - 01/23/2014 1624 EDT GI CONSULT FOLLOW UP NOTE Author: Kam Alejandro MD Attending Physician: Manoj Valencia MD Identifying Statement: - Chronic GI gleed, likely 2/2 hypertensive portal gastropathy 24hr Events/Subjective: - Large episode of melena overnight Objective: Last Vitals: BP 128/60 Pulse 56 Temp(Src) 36.9 ??C (98.4 ??F) (Tympanic) Resp 18 Ht 162.6 cm (64) Wt 89.313 kg (196 lb 14.4 oz) BMI 33.78 kg/m2 SpO2 98% Filed Vitals: 01/23/14 0500 01/23/14 0820 01/23/14 1125 01/23/14 1400 BP: 137/59 117/66 114/57 128/60 Pulse: 76 66 56 Temp: 37.2 ??C (99 ??F) 35.9 ??C (96.6 ??F) 36.6 ??C (97.9 ??F) 36.9 ??C (98.4 ??F) TempSrc: Tympanic Tympanic Tympanic Tympanic Resp: 18 19 18 Height: Weight: SpO2: 100% 98% 98% 98% General: well appearing, in NAD HEENT: no conjunctival icterus Resp: CTAB CV: RRR, no m/g/r Abd: Soft, nt, nd, +BS Ext: WWP, no edema Data: Labs/Meds: See PRISM Imaging See PRISM Procedures: See initial consult note for full report ASSESSMENT and RECOMMENDATIONS: Alonzo Urbina is a 58 y.o. male with chronic GI bleed, likely secondary to hypertensive portal gastropathy - As this point we will pursue a capsule study one more time tomorrow, 01/23. Our nurses will come by at 8am to administer the study. - If this is negative then we will proceed with TIPS. We will go over the results and the pros/consof a TIPS procedure with Mr. Urbina and his fiancee when the capsule study is read (01/24). My Assessment and Plan were discussed with my Attending, Dr. Catalan who agrees with the above. Kam Alejandro MD GI and Hepatology Fellow Pager [phone] * José Catalan MD - 01/22/2014 9586 EDT Gastroenterology & Hepatology Consult Note The Gastroenterology service was consulted to see Alonzo Urbina for coffee ground emesis Requesting Physician: Manoj Valencia MD HPI: 58 y.o.male with 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 His previous workup has included multiple EGD's, colonoscopies, and a capsule study at [facility] (results of these tests are scanned into Scans/Media). Patient presented after a single episode of 1/4 cup coffee- ground black emesis with a few clots of dark maroon clots. Patient is nauseated but has not vomited again. Unfortunately, he has episodes of melena at baseline due to his occult GI bleed. Currently, however, he is not having melena. Recent admissions: Patient was seen by our group earlier in January for melena. EGD and colonoscopy was performed and was normal except for some active oozing on EGD general friability evidenced by superficial bleedingwith typical colonoscope trauma. Given the repeated negative studies, the most likely etiology of this patient's occult bleed was believed to be portal gastropathy. The patient denies any recent history of fevers, chills, abdominal pain. ROS: Full review of systems was negative except as detailed above. Past Medical History Diagnosis Date ??? Anemia [...] 1981 ??? Shoulder surgery 20 years ago Current Facility-Administered Medications Medication Route Frequency ??? acetaminophen (TYLENOL) tablet 500 mg oral Q6H PRN ??? bisacodyl (DULCOLAX) EC tablet 10 mg oral Daily PRN Or ??? bisacodyl (DULCOLAX) suppository 10 mg rectal Daily PRN ??? cefTRIAXone (ROCEPHIN) 1,000 mg in sodium chloride 0.9 % 50 mL IVPB intravenous DAILY ??? cyanocobalamin tablet 1,000 mcg oral DAILY ??? docusate sodium (COLACE) capsule 100 mg oral BID PRN ??? folic acid (FOLVITE) tablet 1 mg oral DAILY ??? nadolol (CORGARD) tablet 20 mg oral DAILY ??? octreotide (SANDOSTATIN) 500 mcg in sodium chloride (NS) 0.9 % 250 mL infusion intravenous CONTINUOUS ??? ondansetron (PF) (ZOFRAN) injection 4 mg intravenous Q4H PRN ??? prochlorperazine edisylate (COMPAZINE) injection 10 mg intravenous Q6H PRN ??? pyridoxine (VITAMIN B6) tablet 50 mg oral DAILY ??? senna (SENOKOT) tablet 2 Tab oral AT BEDTIME PRN ??? thiamine (VITAMIN B1) tablet 100 mg oral DAILY ??? traMADol (ULTRAM) tablet 50 mg oral Q6H PRN Prescriptions prior to admission Medication Sig Dispense Refill ??? FERROUS FUMARATE (IRON ORAL) Take by mouth. ??? FOLIC ACID ORAL Take 5 mg by mouth daily. ??? nadolol (CORGARD) 20 mg tablet Take 20 mg by mouth daily. Allergies Allergen Reactions ??? Ambien [Zolpidem] Sleep-driving History Social History ??? Marital Status: Spouse Name: N/A Number of Children: N/A ??? Years of Education: N/A Occupational History ??? Not on file. Social History Main Topics ??? Smoking status: Never Smoker ??? Smokeless tobacco: Never Used ??? Alcohol Use: No ??? Drug Use: No ??? Sexual Activity: Yes Partners: Female Other Topics Concern ??? Not on file Social History Narrative ??? No narrative on file Family History Problem Relation Age of Onset ??? Cancer Mother ??? Breast Cancer Mother ??? Alcohol Abuse Father ??? Cancer Father ??? Diabetes Father ??? Cancer Sister ??? Crohn's Disease Sister ??? Diabetes Sister ??? Cancer Brother ??? Anesth Problems Brother ??? Cancer Sister ??? Anesth Problems Sister PE: Filed Vitals: 01/22/14 1215 01/22/14 1315 01/22/14 1345 01/22/14 1535 BP: 123/63 119/81 103/62 93/52 Pulse: Temp: 37 ??C (98.6 ??F) TempSrc: Tympanic Resp: 20 13 16 20 Weight: SpO2: 98% 100% 100% 99% Gen: Well appearing, NAD, A+Ox3, normal color HEENT: No conjunctival icterus CV: RRR, no m/g/r Lungs: CTA bilaterally GI: distended; soft, non-tender, BS+ Neuro: no gross motor or sensory deficits Extrem: WWP, no LE edema Skin: No rash Laboratory: Labs reviewed, pertinent results are as follows: Hb 8.2. (stable from 01/12) Impression and Recommendations: 58 y.o. 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 - Patient's recurrent episodes of melena and hematemesis are significantly impacting his quality oflife. - Patient's current episode is not significant from a hemodynamic standpoint and is very unlikely to benefit from yet another endoscopic procedure. - Will discuss options regarding a plan for TIPS but this should not hold up his discharge from the[facility]. This patient was seen and examined with Dr. Alayna Alejandro MD Gastroenterology & Hepatology Fellow #[id number] Attestation statement: I saw and examined the patient with the resident/fellow. I agree with the findings and plan of care documented in the resident's/fellow's note. documented in this encounter ED Notes * Seema Trimble RN - 01/22/2014 1436 EDT Pt given Tylenol per request for 10/18 headache. Report called to B4. * Seema Trimble RN - 01/22/2014 1231 EDT Medicine team in room for evaluation. Awaiting GI consult. No further episodes of vomiting/hematemesis noted. Pt reports improvement of nausea. * Seema Trimble RN - 01/22/2014 1135 EDT Second peripheral IV placed, pt and family aware of plan for admission. * Kalani Parsons MD - 01/22/2014 1025 EDT DOS: 01/22/2014 Chief Complaint Patient presents with ??? Hemoptysis I starting coughing up blood recently has been having Rectal blood has been feeling tired was recently DC from hospital, states has low hct. The patient is a 58 y.o. male who presents today with Hemoptysis HPI Comments: I performed a history and exam of Alonzo Urbina and discussed the case with the resident. I reviewed this individual's note and I concur with the documented findings and plan of care. ROS as per resident chart. Otherwise reviewed in full and negative or non-contributory. The history is provided by the patient and medical records. Hemoptysis Review of Systems Respiratory: Positive for hemoptysis. Past Medical History Diagnosis Date ??? Anemia ??? Depression ??? Chronic kidney disease ??? Hepatitis C ??? Cirrhosis of liver ??? Esophageal varices ??? Chronic back pain ??? Leg numbness ??? Colon polyp ??? Mental disorder Past Surgical History Procedure Laterality Date ??? Esophageal varice ligation 2008 or 2009 ??? Hernia repair hiatal hernia ??? Back surgery 1973, 1981 ??? Shoulder surgery 20 years ago Allergies Allergen Reactions ??? Ambien [Zolpidem] Sleep-driving History Substance Use Topics ??? Smoking status: Never Smoker ??? Smokeless tobacco: Never Used ??? Alcohol Use: No Family History Problem Relation Age of Onset ??? Cancer Mother ??? Breast Cancer Mother ??? Alcohol Abuse Father ??? Cancer Father ??? Diabetes Father ??? Cancer Sister ??? Crohn's Disease Sister ??? Diabetes Sister ??? Cancer Brother ??? Anesth Problems Brother ??? Cancer Sister ??? Anesth Problems Sister Vital Signs Vitals Reassessment?: Yes Temp: 37.2 ??C (99 ??F) Temp src: Tympanic Pulse: 83 Heart Rate: 78 BPM Resp: 20 SpO2: 94 % BP: 117/55 mmHg BP Device: BP Machine Patient Position: Semi fowlers BP Cuff Location: Left arm O2 Flow Rate (L/min): 12 l/min O2 Device: None (Room air) Physical Exam CT ABDOMEN W CONTRAST Final result not shown here.: IR TIPS (Results Pending) CT ABDOMEN (LUNG BASES TO ILIAC CREST) (Canceled) CT ABDOMEN (LUNG BASES TO ILIAC CREST) (Canceled) CT ABDOMEN (LUNG BASES TO ILIAC CREST) (Canceled) Radiology orders: IR TIPS CT ABDOMEN W CONTRAST Imaging Results None Procedures Consult Orders Procedures ??? Consult Vascular Interventional Radiology Lab Results ANTIBODY IDENTIFICATION (In process) Result time: 01/22/14 11:09:12 ANTIBODY IDENTIFICATION (Final result) Component (Lab Inquiry) Collection Time Result Time AB Identification 01/22/14 11:09:00 01/22/14 12:21:57 Anti-E Anti-c (little) TYPE AND SCREEN (Final result) Component (Lab Inquiry) Collection Time Result Time ABO Rh Factor Antibody Screen 01/22/14 10:30:00 01/22/14 11:09:11 A Positive Positive SPECIMEN EXPIRES 01/25/2014 @8833 PREPARE RED BLOOD CELLS (Final result) Component (Lab Inquiry) Collection Time Result Time Product Code Donor Number Unit ABO Unit Rh Cross Match Interp 01/22/14 10:30:00 01/23/14 08:20:32 E0336 -1 RED BLOOD CELLS, Leukocytes Reduced [id number] POS Compatible Collection Time Result Time Unit Status 01/22/14 10:30:00 01/23/14 08:20:32 Transfuse PREPARE RED BLOOD CELLS (Final result) Component (Lab Inquiry) Collection Time Result Time Product Code Donor Number Unit ABO Unit Rh Cross Match Interp 01/22/14 10:30:00 01/26/14 07:35:44 E0336 -1 RED BLOOD CELLS, Leukocytes Reduced [id number] POS Compatible Collection Time Result Time Unit Status 01/22/14 10:30:00 01/26/14 07:35:44 Released From Crossmatch PROTIME (Final result) Abnormal Component (Lab Inquiry) Collection Time Result Time Pro Time I.N.R. 01/22/14 10:04:00 01/22/14 10:26:34 12.5 (H) 1.2 (H) Moderate Intensity Coumadin INR = 2.0-3.0 Adjustments in anticoagulant therapy dose should be basedupon the INR and NOT the Pro Time. PTT (Final result) Abnormal Component (Lab Inquiry) Collection Time Result Time PTT 01/22/14 10:04:00 01/22/14 10:33:38 25 (L) Therapeutic Heparin range: 65-100 seconds HEMAGRAM AND DIFFERENTIAL (Final result) Result time: 01/22/14 10:14:07 COMPREHENSIVE METABOLIC PANEL (CMP) (Final result) Abnormal Component (Lab Inquiry) Collection Time Result Time Potassium Sodium Chloride CO2 Total Alkaline Phosphatase 01/22/14 10:04:00 01/22/14 10:33:22 4.8 140 108 23 (L) 80 Collection Time Result Time Bilirubin, Total AST ALT Albumin Total Protein 01/22/14 10:04:00 01/22/14 10:33:22 0.7 53 (H) 54 3.3 (L) 6.5 Collection Time Result Time Creatinine GFR, Calculated BUN Calcium Calculated Calcium 01/22/14 10:04:00 01/22/14 10:33:22 0.80 >60 31 (H) 8.7 9.8 Collection Time Result Time Glucose, Serum Fasting? 01/22/14 10:04:00 01/22/14 10:33:22 213 (H) Unknown HEMAGRAM (Final result) Abnormal Component (Lab Inquiry) Collection Time Result Time WBC RBC Hemoglobin HCT MCV 01/22/14 10:04:00 01/22/14 10:19:39 4.31 2.91 (L) 8.2 (L) 25.1 (L) 86 Collection Time Result Time MCH MCHC PLT RDW-CV 01/22/14 10:04:00 01/22/14 10:19:39 28.3 32.7 (L) 116 (L) 17.9 (H) 1+ Anisocytosis DIFFERENTIAL (Final result) Component (Lab Inquiry) Collection Time Result Time Neutrophils Lymphocytes Monocytes Eosinophils ABS Neutrophils 01/22/14 10:04:00 01/22/14 11:10:00 61.0 27.0 9.0 3.0 2.63 Collection Time Result Time ABS Lymphs ABS Monocytes ABS Eosinophils Type of Diff: 01/22/14 10:04:00 01/22/14 11:10:00 1.16 0.39 0.13 Manual ED Course: A medical screening exam was performed. 58 yo male with HCV, known esophageal varices, here with vomiting up blood. Brown, guaiac positive stool on exam. No active vomiting here but still nauseated. + HD stable. Octreotide started. Protonix not started as it was d/c'd on previous visit with concernfor thrombocytopenia. Nausea improved, holding on NGT for now. Admitted to medicine. Disposition: Admitted The patient's pain was managed to an adequate level weighing risk vs. benefit of further medications. Upon departure from the Emergency Department, the patient's pain was 3 on a zero to ten scale. Condition at departure from the Emergency Department: Fair ED Current Prescriptions Medication Dispense Auth. Provider carvedilol (COREG) 6.25 mg tablet 60 Tab Elva Winter MD cyanocobalamin 1,000 mcg tablet 30 Tab Elva Winter MD lactulose (CHRONULAC) 20 gram/30 mL solution 1 Bottle Elva Winter MD pyridoxine (VITAMIN B6) 50 mg tablet 30 Tab Elva Winter MD thiamine (VITAMIN B1) 100 mg tablet 30 Tab Elva Winter MD traMADol (ULTRAM) 50 mg tablet 21 Tab Elva Winter MD ferrous fumarate (FERRETTS) 325 mg (106 mg iron) tablet 30 Tab Elva Winter MD MDM 5 Final diagnoses: Hematemesis PCP: Kamala Rosado MD 01/29/2014 12:50 No flowsheet data found. * Seema Trimble RN - 01/22/2014 1009 EDT Pt placed on continuous cardiac/bedside monitoring upon arrival to ED room. Call salas within reach.Pt instructed to call with worsening/changed s/s. * Harris Navarro RN - 01/22/2014 0952 EDT Pt states inc fatigue as well my doc feels I may need a blood transfusion documented in this encounter Miscellaneous Notes * Plan of Care - Chen Salas RN - 01/29/2014 0440 EDT Problem: PAIN Goal: Patient???s Pain And Discomfort Are Adequately Managed Data: Pt alert and oriented Pt very drowsy at beginning of shift from the anesthesia for the tips procedure done yesterday. Pt was unable to talk with H.O when he came to check him. Pt opened his eyes but then just fall back to sleep. Later in the night pt woke up and was very angry and wanted pain meds. Pt was very different than the night before. Pt refused tramadol and stated He wanted real drugs. He then turned over and fell asleep. Pt didn't wake up until 0200. When Pt woke up he wanted to leave and put on his sweat pants. He wanted pain meds and was angry. Action: Night float (Roberto) called Prn dilaudid 0.5 given and then H.O checked pt but he was asleep. Response: Pt remains asleep and appears comfortable. Chen Salas RN 01/29/2014 4:05 * Plan of Care - Seema Rico RN - 01/28/2014 0451 EDT Problem: PSYCHOSOCIAL Goal: Demonstrates Ability To Alligator With Hospitalization Outcome: Ongoing Data: I'm just nervous about tomorrow. I hope they do the TIPS tomorrow and not push it off to later in the week. Patient reported that his nerves were causing him to be nauseous. Action: Provided some emotional support and IV Zofran. Response: The patient reported that he felt much better and was able to rest. SEEMA RICO RN 01/28/2014 4:37 * Plan of Care - Kellie Driver RN - 01/27/2014 1822 EDT Problem: PAIN Goal: Patient???s Pain And Discomfort Are Adequately Managed Outcome: Ongoing Data: Pt A+OX3 admitted with GI bleed. Pt I have not had any bloody BM's t/o night. I have chronic lower back pain and take tylenol for that. No nausea this am. Pt denies CP, SOB but still feeling slight lightheaded and dizzy with ambulation. Oct. Gtt running at 25 ml/Hr cont. Action: 1.) Pt medicated with tylenol 500 mg po x 1, Thermacare offered applied to lower back by pt. 2.) Oct. Gtt maintained. Pt assessed for any signs of bleeding. 3.) Pt enc. To ambulate wit staff or fiance in [place] and close to side rail incase he was feeling lightheaded /dizzy to prevent fall. And to report to RN if lightheaded/dizzyness worsens. 4.) Nausea assessed. Response: 1.) Pt the heat really helped wit lower back pain. I will start using Thermacare at home to manage chronic back pain. 2.) Pt I had one formed bowel movement this am. I didn't see any blood in it. Oct. Gtt continued. Will cont. To monitor pt for bleeding. 3.) Kellie Driver RN 01/27/2014 18:09 * Plan of Care - Yasmin Velez RN - 01/27/2014 0123 EDT Problem: HEMODYNAMIC STATUS Goal: Patient Has Stable VS & Fluid Balance Data: pt with dropping HCT/HGB 10 am. Ordered for transfusion on PRBCs x 2 units. Action: finish and monitor 2nd unit of blood, upon completion started octreotide gtt p/ loading dose. Response: will continue to monitor. Yasmin Velez RN 01/27/2014 1:22 * Plan of Care - Kellie Driver RN - 01/26/2014 1643 EDT Problem: HEMODYNAMIC STATUS Goal: Patient Has Stable VS & Fluid Balance Outcome: Ongoing Data: Pt A+OX3 admitted with GI bleed. Pt had x 3 bloody stools t/o night. Hgb. And Hct. 6.4 and 19.5. Action: 2 units of blood ordered. 1st completed 2nd one to be administered. Response: Pt feeling tired. Will cont. To monitor pt BM's, labs and sings for bleeding. Kellie Driver RN 01/26/2014 16:32 * Plan of Care - Aurora Kirby - 01/26/2014 1602 EDT Problem: MOBILITY Goal: Mobility/Activity Is Maintained At Optimum Level For Patient Data: Pt alert & oriented x3, independent, girlfriend visiting. Pt took walk around unit with girlfriend. Action: Encouraged pt to ambulate. Response: Pt tolerated ambulation well, no c/o of pain or SOB with ambulation. Aurora Kirby RN 01/26/2014 16:00 * Plan of Care - Yasmin Velez RN - 01/26/2014 0602 EDT Problem: NAUSEA AND VOMITING Goal: Patient Will Experience Relief from Nausea and Vomiting Data: pt with c/o nausea Action: medicated with zofran IV Response: pt able to sleep p/. Will continue to monitor. Yasmin Velez RN 01/26/2014 6:01 * Plan of Care - Dony Caballero RN - 01/25/2014 1920 EDT Problem: NAUSEA AND VOMITING Goal: Patient Will Experience Relief from Nausea and Vomiting Data: pt c/o nausea this evening Action: pt given zofran this evening Response: positive effects from antiemetics DONY CABALLERO RN 01/25/2014 19:19 * Plan of Care - Hunter Stafford RN - 01/24/2014 1617 EDT Problem: ELIMINATION Goal: Elimination Patterns Are Normal Or Improving Data: Pt AOx3, ambulating independently; had a SANFORD at 8/10; nausea. Pt had another black, tarry BM this AM. At his wit's end with this bleeding situation. Action: Witnessed endoscopic camera swallowing with GI nurses; monitored periods of drinking (5-10 mins) in between NPO-ness (2 hrs); administered 500 mg PO acetaminophen, 4 mg IV ondansetron; 1,000 mg ceftriaxone IV. Response: Pt's pain dropped to 5/10; didn't have any vomiting episodes; very compliant with procedure regiment. Hunter Stafford RN 01/24/2014 16:01 * Plan of Care - Tamy Paredes RN - 01/24/2014 0504 EDT Problem: NAUSEA AND VOMITING Goal: Patient Will Experience Relief from Nausea and Vomiting Outcome: Ongoing Data: pt with c/o nausea Action: medicated with zofran 4 mg IV Response: had relief Tamy Paredes RN 01/24/2014 5:04 * Plan of Care - Amy Nixon RN - 01/23/2014 1840 EDT Problem: NAUSEA AND VOMITING Goal: Patient Will Experience Relief from Nausea and Vomiting Data: Pt had complaints of nausea throughout the day. There were no episodes of vomiting. Action: Medicated pt throughout day with PRN Zofran Q4 hours as ordered. Offered cool wash clothes and other non-pharmacologic interventions. Response: Pt experiences significant relief from nausea with zofran. Pt is currently sleeping comfortably in bed. Will continue to monitor. Amy Rushing RN 01/23/2014 18:38 * Plan of Care - Mariela Harding RN - 01/23/2014 1026 EDT Problem: PAIN Goal: Patient???s Pain And Discomfort Are Adequately Managed Data: 0820 patient complaining of 8/10 headache. Action:medicated with 500 mg of tylenol given (seeMAR), Patient up to bathrrom to clean up before Receiving antibiotics. Response: reassessed patient per pain protocol to see if medication was effective, patient reporting 5/10 pain which is tolerable. Will continue to monitor patient. Action: Stacy Corona 01/23/2014 10:16 * Plan of Care - Tamy Paredes RN - 01/23/2014 0124 EDT Problem: NAUSEA AND VOMITING Goal: Patient Will Experience Relief from Nausea and Vomiting Outcome: Ongoing Data: pt with nausea Action: medicated with zofran 4 mg IV Response: states had some relief Tamy Paredes RN 01/23/2014 1:24 * Plan of Care - Amy Nixon RN - 01/22/2014 1750 EDT Problem: NAUSEA AND VOMITING Goal: Patient Will Experience Relief from Nausea and Vomiting Data: Pt is a 58 year old male who was admitted for the development of hemoptysis. Pt presented in the ED with nausea and vomiting. On arrival to the unit pt was complaining of severe nausea. He stated that the nausea was the cause of the pain that he had. VS stable, however has a soft BP which pt states is normal for him. No episodes of vomiting while on the unit. Action: Pt oriented to unit. Pt was administered PRN Zofran 4mg IV to help with nausea. Cool washcloth was offered but refused. Pt NPO per order. Maintained quiet environment to promote rest. Response: Pt is currently sleeping comfortably in bed following administration of Zofran. Will continue to monitor and adjust interventions as necessary. Amy Rushing RN 01/22/2014 17:44 documented in this encounter Plan of Treatment Upcoming Encounters Date Type Department Care Team (Late st Contact Info) Description 01/23/2024 10:00 EDT Office Visit [facility] General Surgery - [address] [id number] Bon Gutierrez MD [address] [facility], [facility], [address] [place] [id number] 09/10/2024 10:00 EDT Appointment Shaina Mejia [address] [place], [place] [phone] Pending Results Name Type Priority Associated Diagnoses Date /Time ANTIBODY IDENTIFICATION Blood Bank STAT 1 11:09 EDT ANTIBODY IDENTIFICATION Blood Bank STAT 1 9:27 EDT Scheduled Orders Name Type Priority Associated Diagnoses Orde r Schedule ANTIBODY IDENTIFICATION Blood Bank STAT O ne Time for 1 Occurrences starting 01/22/2014 until 01/22/2014 ANTIBODY IDENTIFICATION Blood Bank STAT O ne Time for 1 Occurrences starting 01/26/2014 until 01/26/2014 documented as of this encounter Procedures Procedure Name Priority Date/Time Associated Diagnosis Comments PROCEDURE REPORTS - SCANNED 02/15/2014 3:31 EST TRANSFUSION RECORD - SCANNED 02/01/2014 8:48 EDT DIFFERENTIAL Routine 01/29/2014 5:25 EDT COMPLETE BLOOD COUNT Routine 01/29/2014 5:25 EDT COMPLETE BLOOD COUNT AND DIFFERENTIAL Routine 01/29/2014 5:25 EDT BUN Routine 01/29/2014 5:25 EDT CREATININE Routine 01/29/2014 5:25 EDT ELECTROLYTES Routine 01/29/2014 5:25 EDT IR TIPS Routine 01/28/2014 15:[address] ABDOMEN (LUNG BASES TO ILIAC CREST) W CONTRAST 01/28/2014 10:59 EDT DIFFERENTIAL Routine 01/28/2014 5:28 EDT PTT Routine 01/28/2014 5:28 EDT PROTIME Routine 01/28/2014 5:28 EDT COMPLETE BLOOD COUNT Routine 01/28/2014 5:28 EDT COMPLETE BLOOD COUNT AND DIFFERENTIAL Routine 01/28/2014 5:28 EDT BUN Routine 01/28/2014 5:28 EDT CREATININE Routine 01/28/2014 5:28 EDT ELECTROLYTES Routine 01/28/2014 5:28 EDT DIFFERENTIAL Routine 01/27/2014 17:52 EDT COMPLETE BLOOD COUNT Routine 01/27/2014 17:52 EDT COMPLETE BLOOD COUNT AND DIFFERENTIAL Routine 01/27/2014 17:52 EDT DIFFERENTIAL Routine 01/27/2014 5:22 EDT COMPLETE BLOOD COUNT Routine 01/27/2014 5:22 EDT COMPLETE BLOOD COUNT AND DIFFERENTIAL Routine 01/27/2014 5:22 EDT BUN Routine 01/27/2014 5:22 EDT CREATININE Routine 01/27/2014 5:22 EDT ELECTROLYTES Routine 01/27/2014 5:22 EDT DIFFERENTIAL Routine 01/26/2014 17:53 EDT COMPLETE BLOOD COUNT Routine 01/26/2014 17:53 EDT COMPLETE BLOOD COUNT AND DIFFERENTIAL Routine 01/26/2014 17:53 EDT INPATIENT ADD-ON Routine 01/26/2014 9:55 EDT ANTIBODY IDENTIFICATION Routine 01/27/20 14 9:27 EDT PREPARE RED BLOOD CELLS Routine 01/27/20 14 8:05 EDT PREPARE RED BLOOD CELLS Routine 01/27/20 14 8:05 EDT TYPE AND SCREEN STAT 01/26/2014 8:05 EDT DIFFERENTIAL Routine 01/26/2014 5:19 EDT COMPLETE BLOOD COUNT Routine 01/26/2014 5:19 EDT BUN Routine 01/26/2014 5:19 EDT CREATININE Routine 01/26/2014 5:19 EDT ELECTROLYTES Routine 01/26/2014 5:19 EDT COMPLETE BLOOD COUNT Routine 01/25/2014 6:04 EDT BUN Routine 01/25/2014 6:04 EDT CREATININE Routine 01/25/2014 6:04 EDT ELECTROLYTES Routine 01/25/2014 6:04 EDT COMPLETE BLOOD COUNT Routine 01/24/2014 5:26 EDT BUN Routine 01/24/2014 5:26 EDT CREATININE Routine 01/24/2014 5:26 EDT ELECTROLYTES Routine 01/24/2014 5:26 EDT COMPLETE BLOOD COUNT Routine 01/23/2014 21:30 EDT COMPLETE BLOOD COUNT Routine 01/23/2014 13:57 EDT SCREENING GLUCOSE Routine 01/23/2014 5:4 5 EDT COMPLETE BLOOD COUNT Routine 01/23/2014 5:45 EDT BUN Routine 01/23/2014 5:45 EDT CREATININE Routine 01/23/2014 5:45 EDT ELECTROLYTES Routine 01/23/2014 5:45 EDT COMPLETE BLOOD COUNT Routine 01/22/2014 21:24 EDT GLUCOSE, GLUCOMETER Routine 01/22/2014 1 6:51 EDT ANTIBODY IDENTIFICATION Routine 01/23/20 11:09 EDT PREPARE RED BLOOD CELLS Routine 01/23/20 10:30 EDT PREPARE RED BLOOD CELLS STAT 01/23/20 10:30 EDT TYPE AND SCREEN STAT 01/22/2014 10:30 EDT DIFFERENTIAL STAT 01/22/2014 10:04 EDT PTT STAT 01/22/2014 10:04 EDT PROTIME STAT 01/22/2014 10:04 EDT COMPLETE BLOOD COUNT STAT 01/22/2014 10:04 EDT COMPLETE BLOOD COUNT AND DIFFERENTIAL STAT 01/22/2014 10:04 EDT COMPREHENSIVE METABOLIC PANEL (CMP) STAT 01/22/2014 10:04 EDT documented in this encounter Results * PROCEDURE REPORTS - SCANNED (02/15/2014 3:31 EST) 02/15/2014 3:31 EST Narrative 02/15/2014 4:10 EST Procedure Note GRAVITY FLOW IRRIGATOR, SCAN 2 - 02/15/2014 3:31 EST Scan 2 Elementary Librarian PROCEDURE/MINOR TY GICAL ORDERABLES * TRANSFUSION RECORD - SCANNED (02/01/2014 8:48 EDT) 02/01/2014 8:48 EDT Scan 2 Elementary Librarian LAB INFO SERVICE AN D SUPPORT & PHONE RESULT * (ABNORMAL) DIFFERENTIAL (01/29/2014 5:25 EDT) % Neutrophils 75.6 45.5 - 79.7 % [facility] % Lymphocytes 8.9(L) 15.0 - 46.8 % [facility] % Monocytes 10.4 1.8 - 12.0 % [facility] % Eosinophils 4.2 0.6 - 6.9 % [facility] % Basophils 0.9 0.2 - 1.4 % [facility] ABS Neutrophils 3.78 2.20 - 8.85 K/cmm [facility] ABS Lymphs 0.45(L) 1.09 - 3.30 K/cmm [facility] ABS Monocytes 0.52 0.1 - 0.8 K/cmm [facility] ABS Eosinophils 0.21 0.03 - 0.61 K/cmm [facility] ABS Basophils 0.05 0.01 - 0.11 K/cmm [facility] Type of Diff: Automated [facility] 01/29/2014 5:25 EDT 01/29/2014 7:02 EDT Elva Ibrahim MD HEMATOLOGY & PF4 ORD ERABLES Performing Organization Address [facility] de Phone Number [facility] [address] [place] [address] * (ABNORMAL) HEMAGRAM (01/29/2014 5:25 EDT) WBC 5.01 4.0 - 10.4 K/cmm [facility] RBC 3.13(L) 4.36 - 5.78 M/cmm [facility] Hemoglobin 8.7(L) 13.8 - 17.3 gm/dl [facility] HCT 26.6(L) 39.5 - 50.2 % [facility] MCV 85 81 - 95 fl [facility] MCH 27.9 27.6 - 33.0 pg [facility] MCHC 32.8 32.8 - 36.4 gm/dl [facility] PLT 139(L) 141 - 320 K/cmm [facility] RDW-CV 15.5(H) 11.8 - 14.1 % [facility] 01/29/2014 5:25 EDT 01/29/2014 7:02 EDT Elva Ibrahim MD HEMATOLOGY & PF4 ORD ERABLES Performing Organization Address [facility] Co de Phone Number [facility] [address] [place] [address] * CREATININE (01/29/2014 5:25 EDT) Creatinine 0.87 0.66 - 1.25 mg/dl [facility] GFR, Calculated >60 >60 ml/min/1.7 3m2 [facility] Blood specimen (specimen) 01/29/2014 5:25 EDT 01/29/2014 7:02 EDT Abdiaziz Cruz MD CHEMISTRY & BLOOD GA S ORDERABLES Performing Organization Address [facility] Co de Phone Number [facility] [address] [place] [address] * BUN (01/29/2014 5:25 EDT) BUN 15 10 - 26 mg/dl [facility] Blood specimen (specimen) 01/29/2014 5:25 EDT 01/29/2014 7:02 EDT Abdiaziz Cruz MD CHEMISTRY & BLOOD GA S ORDERABLES Performing Organization Address [facility] de Phone Number [facility] [address] [place] [address] * ELECTROLYTES (01/29/2014 5:25 EDT) Sodium 136 136 - 145 mEq/L [facility] Potassium 3.7 3.5 - 5.0 mEq/L [facility] Chloride 103 96 - 110 mEq/L [facility] CO2 26 24 - 32 mEq/L [facility] Blood specimen (specimen) 01/29/2014 5:25 EDT 01/29/2014 7:02 EDT Abdiaziz Cruz MD CHEMISTRY & BLOOD GA S ORDERABLES Performing Organization Address [facility] de Phone Number [facility] [address] [place] [address] * IR TIPS (01/28/2014 15:40 EDT) Anatomical Region Laterality Modality Other 01/28/2014 15:4 0 EDT 01/29/2014 16:01 EDT Narrative 01/29/2014 16:01 EDT TRANSJUGULAR INTRAHEPATIC PORTOSYSTEMIC SHUNT (TIPS) PLACEMENT Date: 01/28/2014 Comparisons: CT abdomen on 01/28/2014. Right upper quadrant ultrasound on 12/11/2013. Patient: Alonzo Urbina Attending: Dr. Guicho Rosales Machine Maintenance Technician: Dr. Zac Rollins, Dr. 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 He was recently admitted with recurrent gastrointestinal bleeding. Prior endoscopy demonstrated esophageal varices and hypertensive portal gastropathy. Gastroenterology consulted and recommended referral for TIPS placement. Narrative: The risks, benefits, and alternatives to the procedure were discussed in detail with the patient who gave both written and verbal consent to proceed. The patient was brought to the interventional suite and placed in the supine position. The right neck prepped and draped in the standard sterile fashion. Conscious sedation was administered with monitoring of the patient's heart rate, blood pressure, respiratory rate, and oxygen saturation. Ultrasound guidance was used and an image was saved for the permanent record. Buffered 1% lidocaine local anesthetic was administered. The right internal jugular vein was accessed with a micropuncture needle. The microneedle was exchanged over a guidewire for a 4 [place] microsheath. The microsheath was removed over a 3J guidewire and the track was dilated. A 10 [place] Arrow sheath was placed. A 5 [place]bourger multipurpose catheter was advanced over a Terumo Glidewire into the right hepatic vein and angiography was performed. Pressures were transduced (free hepatic venous pressure 20 mm Hg, wedge pressure 25 mm Hg). The multipurpose catheter and Arrow sheath were then exchanged over an Amplatz guidewire for the curved TIPS sheath. With the sheath in the right hepatic vein, multiple passes were made with the Rosch-Uchida needle. Ultimately, the right portal pain was successfully accessed and a guidewire was advanced into the main portal vein. A 4 [place]ger multipurpose catheter was advanced into the main portal vein and portal venography was performed confirming satisfactory access. The multipurpose catheter was then removed over a [place] guidewire. The parenchymal track was dilated with serial inflations of 4 mm diameter by 40 mm length [place] balloon. The track was further dilated with multiple inflations of an 8 mm diameter by 40 mm length [place] balloon. An initial attempt at advancing a covered stent across the parenchymal track was unsuccessful due to redundancy in the right atrium. Therefore, the [place] guidewire was exchanged through a catheter for a stiff Amplatz guidewire. The TIPS sheath was exchanged over the Amplatz guidewire for a long 10 [place] Arrow sheath. A 10 mm diameter by 60 cm length Fluency self-expanding covered stent was then successfully deployed across the parenchymal track. A nested 12 mm diameter by 40 mm length LifeStar self-expanding stent was then placed, flaring into the right portal vein. The stents were then dilated with serial inflations of a 10 mm diameter by 40 mm length [place] balloon. A nested 10 mm diameter by 80 mm length LifeStar self-expanding stent was then placed within the existing stents, flaring into the right hepatic vein. A multipurpose catheter was advanced into the main portal vein and main portal venography was performed demonstrating patency of the newly created TIPS with expected reversal of flow in the left portal vein. Finally, post-TIPS pressures were transduced (Main portal vein 26 mm Hg, right hepatic vein 20 mm Hg, right atrium 20 mmHg). All sheaths, catheters, and guidewires were removed. Hemostasis was achieved with manual pressure and a Thrombix patch. A dry sterile dressing was placed. The patient tolerated the procedure well. There were no immediate complications. Findings: 1. Ultrasound: Patent right internal jugular vein. Successful ultrasound guided micropuncture. 2. Right hepatic venography: Right hepatic vein widely patent. 3. Main portal venography: Successful transhepatic access with patent right and left portal veins and hepatopetal flow. 4. Successful TIPS creation using covered and uncovered self-expanding stents, as detailed above. 5. Post-TIPS main portal venography: TIPS patent with stents in satisfactory position. Expected reversal of flow in left portal vein. ?? 6. Post-TIPS pressures: * ??Main portal vein: 26 mm Hg * ??Right hepatic vein: 20 mm Hg * ??Right atrium: 20 mmHg Estimated blood loss: Trace Fluoroscopy time: 71:30 min Contrast: 160 cc IMPRESSION: Successful transjugular intrahepatic portosystemic shunt (TIPS) placement, as detailed above. PLAN: * ??Lactulose as ordered. * ??Patient may be discharged home tomorrow if doing well. * ??Followup ultrasound and IR clinic appointment in [address] Guicho Rosales was present for and supervised the entire procedure. Dr. Zac Rollins and Dr. Guicho Chen were also present for the procedure. I have personally reviewed the images and the above interpretation and agree with the findings. Procedure Note 01/29/2014 TRANSJUGULAR INTRAHEPATIC PORTOSYSTEMIC SHUNT (TIPS) PLACEMENT Date: 01/28/2014 Comparisons: CT abdomen on 01/28/2014. Right upper quadrant ultrasound on 12/11/2013. Patient: Alonzo Urbina Attending: Dr. Guicho Rosales Machine Maintenance Technician: Dr. Zac Rollins, Dr. 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 He was recently admitted with recurrent gastrointestinal bleeding. Prior endoscopy demonstrated esophageal varices and hypertensive portal gastropathy. Gastroenterology consulted and recommended referral for TIPS placement. Narrative: The risks, benefits, and alternatives to the procedure were discussed in detail with the patient who gave both written and verbal consent to proceed. The patient was brought to the interventional suite and placed in the supine position. The right neck prepped and draped in the standard sterile fashion. Conscious sedation was administered with monitoring of the patient's heart rate, blood pressure, respiratory rate, and oxygen saturation. Ultrasound guidance was used and an image was saved for the permanent record. Buffered 1% lidocaine local anesthetic was administered. The right internal jugular vein was accessed with a micropuncture needle. The microneedle was exchanged over a guidewire for a 4 [place] microsheath. The microsheath was removed over a 3J guidewire and the track was dilated. A 10 [place] Arrow sheath was placed. A 5 [place]ger multipurpose catheter was advanced over a Terumo Glidewire into the right hepatic vein and angiography was performed. Pressures were transduced (free hepatic venous pressure 20 mm Hg, wedge pressure 25 mm Hg). The multipurpose catheter and Arrow sheath were then exchanged over an Amplatz guidewire for the curved TIPS sheath. With the sheath in the right hepatic vein, multiple passes were made with the Rosch-Uchida needle. Ultimately, the right portal pain was successfully accessed and a guidewire was advanced into the main portal vein. A 4 [place]ger multipurpose catheter was advanced into the main portal vein and portal venography was performed confirming satisfactory access. The multipurpose catheter was then removed over a [place] guidewire. The parenchymal track was dilated with serial inflations of 4 mm diameter by 40 mm length [place] balloon. The track was further dilated with multiple inflations of an 8 mm diameter by 40 mm length [place] balloon. An initial attempt at advancing a covered stent across the parenchymal track was unsuccessful due to redundancy in the right atrium. Therefore, the [place] guidewire was exchanged through a catheter for a stiff Amplatz guidewire. The TIPS sheath was exchanged over the Amplatz guidewire for a long 10 [place] Arrow sheath. A 10 mm diameter by 60 cm length Fluency self-expanding covered stent was then successfully deployed across the parenchymal track. A nested 12 mm diameter by 40 mm length LifeStar self-expanding stent was then placed, flaring into the right portal vein. The stents were then dilated with serial inflations of a 10 mm diameter by 40 mm length [place] balloon. A nested 10 mm diameter by 80 mm length LifeStar self-expanding stent was then placed within the existing stents, flaring into the right hepatic vein. A multipurpose catheter was advanced into the main portal vein and main portal venography was performed demonstrating patency of the newly created TIPS with expected reversal of flow in the left portal vein. Finally, post-TIPS pressures were transduced (Main portal vein 26 mm Hg, right hepatic vein 20 mm Hg, right atrium 20 mmHg). All sheaths, catheters, and guidewires were removed. Hemostasis was achieved with manual pressure and a Thrombix patch. A dry sterile dressing was placed. The patient tolerated the procedure well. There were no immediate complications. Findings: 1. Ultrasound: Patent right internal jugular vein. Successful ultrasound guided micropuncture. 2. Right hepatic venography: Right hepatic vein widely patent. 3. Main portal venography: Successful transhepatic access with patent right and left portal veins and hepatopetal flow. 4. Successful TIPS creation using covered and uncovered self-expanding stents, as detailed above. 5. Post-TIPS main portal venography: TIPS patent with stents in satisfactory position. Expected reversal of flow in left portal vein. 6. Post-TIPS pressures: * Main portal vein: 26 mm Hg * Right hepatic vein: 20 mm Hg * Right atrium: 20 mmHg Estimated blood loss: Trace Fluoroscopy time: 71:30 min Contrast: 160 cc IMPRESSION: Successful transjugular intrahepatic portosystemic shunt (TIPS) placement, as detailed above. PLAN: * Lactulose as ordered. * Patient may be discharged home tomorrow if doing well. * Followup ultrasound and IR clinic appointment in [address] Guicho Rosales was present for and supervised the entire procedure. Dr. Zac Rollins and Dr. Guicho Chen were also present for the procedure. I have personally reviewed the images and the above interpretation and agree with the findings. Abdiaziz Cruz MD IMG IR ORDERABLES * CT ABDOMEN W CONTRAST (01/28/2014 10:59 EDT) Anatomical Region Laterality Modality Other 01/28/2014 10:5 9 EDT 01/28/2014 11:32 EDT Narrative 01/28/2014 11:[address] ABDOMEN W CONTRAST ??01/28/2014 10:59 AM Signs and Symptoms/Comments: ??TIPS planning following admission for portal gastropathy with GI bleeding requring RBC transfusion Comparison: None. Technique: Axial CT images of the abdomen were obtained from the lung bases through the iliac crests following administration of IV contrast. Coronal and sagittal reformations were performed. There is subtle diffuse peripheral nodularity of the liver contour, consistent with cirrhosis. No focal liver lesion is identified. There is no biliary ductal dilatation. The gallbladder is distended. There is a 1.6 cm cystic lesion within the posterior mid body of the pancreas, which is otherwise unremarkable. There is no pancreatic ductal dilatation. The spleen is enlarged. The periumbilical vein has been recanalized. The adrenal glands and kidneys are unremarkable. The stomach and visible portions of large and small bowel are unremarkable. There is no adenopathy identified within the abdomen or pelvis. Trace ascites is present. The aorta is minimally atherosclerotic. The body wall is intact. There is severe lumbar levoscoliosis with evidence of prior multilevel posterior bony fusion. There is severe paraspinal muscle atrophy. The lung bases are clear with the exception of linear bands of atelectasis and/or scarring at the left base. The visible portion of the heart is unremarkable. Impression: 1. Cirrhosis with findings of portal hypertension, including trace ascites. 2. Cystic 1.6 cm lesion within the pancreatic body, likely a sidebranch IPMN or pseudocyst if there is a history of pancreatitis. Recommend followup CT or MR in 6 months. 3. Severe lumbar levoscoliosis with evidence of prior posterior bony fusion. ?? I have personally reviewed the images and the above interpretation and agree with the findings. Procedure Note 01/28/2014 CT ABDOMEN W CONTRAST 01/28/2014 10:59 AM Signs and Symptoms/Comments: TIPS planning following admission for portal gastropathy with GI bleeding requring RBC transfusion Comparison: None. Technique: Axial CT images of the abdomen were obtained from the lung bases through the iliac crests following administration of IV contrast. Coronal and sagittal reformations were performed. There is subtle diffuse peripheral nodularity of the liver contour, consistent with cirrhosis. No focal liver lesion is identified. There is no biliary ductal dilatation. The gallbladder is distended. There is a 1.6 cm cystic lesion within the posterior mid body of the pancreas, which is otherwise unremarkable. There is no pancreatic ductal dilatation. The spleen is enlarged. The periumbilical vein has been recanalized. The adrenal glands and kidneys are unremarkable. The stomach and visible portions of large and small bowel are unremarkable. There is no adenopathy identified within the abdomen or pelvis. Trace ascites is present. The aorta is minimally atherosclerotic. The body wall is intact. There is severe lumbar levoscoliosis with evidence of prior multilevel posterior bony fusion. There is severe paraspinal muscle atrophy. The lung bases are clear with the exception of linear bands of atelectasis and/or scarring at the left base. The visible portion of the heart is unremarkable. Impression: 1. Cirrhosis with findings of portal hypertension, including trace ascites. 2. Cystic 1.6 cm lesion within the pancreatic body, likely a sidebranch IPMN or pseudocyst if there is a history of pancreatitis. Recommend followup CT or MR in 6 months. 3. Severe lumbar levoscoliosis with evidence of prior posterior bony fusion. I have personally reviewed the images and the above interpretation and agree with the findings. Elva Ibrahim MD IM CT ORDERABLES * (ABNORMAL) DIFFERENTIAL (01/28/2014 5:28 EDT) Neutrophils 76.0 45.5 - 79.7 % [facility] Lymphocytes 17.0 15.0 - 46.8 % [facility] Monocytes 3.0 1.8 - 12.0 % [facility] Eosinophils 4.0 0.6 - 6.9 % [facility] ABS Neutrophils 1.99(L) 2.20 - 8.85 K/cmm [facility] ABS Lymphs 0.44(L) 1.09 - 3.30 K/cmm [facility] ABS Monocytes 0.08(L) 0.1 - 0.8 K/cmm [facility] ABS Eosinophils 0.10 0.03 - 0.61 K/cmm [facility] Type of Diff: Manual [facility] 01/28/2014 5:28 EDT 01/28/2014 6:14 EDT Abdiaziz Cruz MD HEMATOLOGY & PF4 ORD ERABLES [facility] [address] [place] [address] * (ABNORMAL) HEMAGRAM (01/28/2014 5:28 EDT) WBC 2.61(L) 4.0 - 10.4 K/cmm [facility] RBC 3.08(L) 4.36 - 5.78 M/cmm [facility] Hemoglobin 8.7(L) 13.8 - 17.3 gm/dl [facility] HCT 26.1(L) 39.5 - 50.2 % [facility] MCV 85 81 - 95 fl [facility] MCH 28.2 27.6 - 33.0 pg [facility] MCHC 33.3 32.8 - 36.4 gm/dl [facility] PLT 84(L) 141 - 320 K/cmm [facility] RDW-CV 16.2(H) 11.8 - 14.1 % [facility] 01/28/2014 5:28 EDT 01/28/2014 6:14 EDT Abdiaziz Cruz MD HEMATOLOGY & PF4 ORD ERABLES Performing Organization Address [facility] Co de Phone Number [facility] [address] [place] [address] * CREATININE (01/28/2014 5:28 EDT) Creatinine 0.89 0.66 - 1.25 mg/dl [facility] GFR, Calculated >60 >60 ml/min/1.7 3m2 [facility] Blood specimen (specimen) 01/28/2014 5:28 EDT 01/28/2014 6:14 EDT Abdiaziz Cruz MD CHEMISTRY & BLOOD GA S ORDERABLES Performing Organization Address [facility] de Phone Number [facility] [address] [place] [address] * BUN (01/28/2014 5:28 EDT) BUN 16 10 - 26 mg/dl [facility] Blood specimen (specimen) 01/28/2014 5:28 EDT 01/28/2014 6:14 EDT Abdiaziz Cruz MD CHEMISTRY & BLOOD GA S ORDERABLES Performing Organization Address [facility] de Phone Number [facility] [address] [place] [address] * (ABNORMAL) ELECTROLYTES (01/28/2014 5:28 EDT) Sodium 140 136 - 145 mEq/L [facility] Potassium 4.0 3.5 - 5.0 mEq/L [facility] Chloride 110 96 - 110 mEq/L [facility] CO2 23(L) 24 - 32 mEq/L [facility] Blood specimen (specimen) 01/28/2014 5:28 EDT 01/28/2014 6:14 EDT Abdiaziz Cruz MD CHEMISTRY & BLOOD GA S ORDERABLES Performing Organization Address [facility] Co de Phone Number [facility] [address] [place] [address] * PROTIME (01/28/2014 5:28 EDT) Pro Time 12.0 9.5 - 12.3 secs [facility] I.N.R. 1.1 0.9 - 1.1 Ratio [facility] Comment: Moderate Intensity Coumadin INR = 2.0-3.0 Adjustments in anticoagulant therapy dose should be based upon the INR and NOT the Pro Time. Blood specimen (specimen) 01/28/2014 5:28 EDT 01/28/2014 6:14 EDT Abdiaziz Cruz MD HEMATOLOGY & PF4 ORD ERABLES Performing Organization Address [facility] Co de Phone Number [facility] [address] [place] [address] * PTT (01/28/2014 5:28 EDT) Pathologist [facility] [place] PTT 32 26 - 37 secs [facility] Comment:Therapeutic Heparin range: 65-100 seconds Blood specimen (specimen) 01/28/2014 5:28 EDT 01/28/2014 6:14 EDT Abdiaziz Cruz MD HEMATOLOGY & PF4 ORD ERABLES Performing Organization Address [facility] de Phone Number [facility] [address] [place] [address] * (ABNORMAL) DIFFERENTIAL (01/27/2014 17:52 EDT) % Neutrophils 59.1 45.5 - 79.7 % [facility] % Lymphocytes 23.8 15.0 - 46.8 % [facility] % Monocytes 11.5 1.8 - 12.0 % [facility] % Eosinophils 4.7 0.6 - 6.9 % [facility] % Basophils 0.9 0.2 - 1.4 % [facility] ABS Neutrophils 1.74(L) 2.20 - 8.85 K/cmm [facility] ABS Lymphs 0.70(L) 1.09 - 3.30 K/cmm [facility] ABS Monocytes 0.34 0.1 - 0.8 K/cmm [facility] Eosinophils 0.14 0.03 - 0.61 K/cmm [facility] ABS Basophils 0.03 0.01 - 0.11 K/cmm [facility] Type of Diff: Automated [facility] 01/27/2014 17:5 2 EDT 01/27/2014 18:42 EDT Abdiaziz Cruz MD HEMATOLOGY & PF4 ORD ERABLES Performing Organization Address [facility] Co de Phone Number [facility] [address] [place] [address] * (ABNORMAL) HEMAGRAM (01/27/2014 17:52 EDT) WBC 2.94(L) 4.0 - 10.4 K/cmm [facility] RBC 3.10(L) 4.36 - 5.78 M/cmm [facility] Hemoglobin 8.8(L) 13.8 - 17.3 gm/dl [facility] HCT 26.4(L) 39.5 - 50.2 % [facility] MCV 85 81 - 95 fl [facility] MCH 28.3 27.6 - 33.0 pg [facility] MCHC 33.2 32.8 - 36.4 gm/dl [facility] PLT 83(L) 141 - 320 K/cmm [facility] RDW-CV 16.0(H) 11.8 - 14.1 % [facility] 01/27/2014 17:5 2 EDT 01/27/2014 18:42 EDT Abdiaziz Cruz MD HEMATOLOGY & PF4 ORD ERABLES Performing Organization Address [facility] Co de Phone Number [facility] [address] [place] [address] * (ABNORMAL) DIFFERENTIAL (01/27/2014 5:22 EDT) Neutrophils 51.0 45.5 - 79.7 % [facility] % Bands 1.0 % [facility] Lymphocytes 31.0 15.0 - 46.8 % [facility] Monocytes 13.0(H) 1.8 - 12.0 % [facility] Eosinophils 4.0 0.6 - 6.9 % [facility] ABS Neutrophils 1.18(L) 2.20 - 8.85 K/cmm [facility] ABS Bands 0.02 K/cmm [facility] ABS Lymphs 0.71(L) 1.09 - 3.30 K/cmm [facility] ABS Monocytes 0.30 0.1 - 0.8 K/cmm [facility] Eosinophils 0.09 0.03 - 0.61 K/cmm [facility] Type of Diff: Manual [facility] 01/27/2014 5:22 EDT 01/27/2014 6:10 EDT Abdiaziz Cruz MD HEMATOLOGY & PF4 ORD ERABLES [facility] [address] [place] [address] * (ABNORMAL) HEMAGRAM (01/27/2014 5:22 EDT) WBC 2.30(L) 4.0 - 10.4 K/cmm [facility] RBC 3.08(L) 4.36 - 5.78 M/cmm [facility] Hemoglobin 8.8(L) 13.8 - 17.3 gm/dl [facility] HCT 26.2(L) 39.5 - 50.2 % [facility] MCV 85 81 - 95 fl [facility] MCH 28.6 27.6 - 33.0 pg [facility] MCHC 33.5 32.8 - 36.4 gm/dl [facility] PLT 79(L) 141 - 320 K/cmm [facility] RDW-CV 15.9(H) 11.8 - 14.1 % [facility] 01/27/2014 5:22 EDT 01/27/2014 6:10 EDT Abdiaziz Cruz MD HEMATOLOGY & PF4 ORD ERABLES Performing Organization Address [facility] Co de Phone Number [facility] [address] [place] [address] * CREATININE (01/27/2014 5:22 EDT) Creatinine 1.02 0.66 - 1.25 mg/dl [facility] GFR, Calculated >60 >60 ml/min/1.7 3m2 [facility] Blood specimen (specimen) 01/27/2014 5:22 EDT 01/27/2014 6:10 EDT Abdiaziz Cruz MD CHEMISTRY & BLOOD GA S ORDERABLES Performing Organization Address [facility] Co de Phone Number [facility] [address] [place] [address] * BUN (01/27/2014 5:22 EDT) BUN 16 10 - 26 mg/dl [facility] Blood specimen (specimen) 01/27/2014 5:22 EDT 01/27/2014 6:10 EDT Abdiaziz Cruz MD CHEMISTRY & BLOOD GA S ORDERABLES Performing Organization Address [facility] de Phone Number [facility] [address] [place] [address] * ELECTROLYTES (01/27/2014 5:22 EDT) Sodium 137 136 - 145 mEq/L [facility] Potassium 4.2 3.5 - 5.0 mEq/L [facility] Chloride 105 96 - 110 mEq/L [facility] CO2 25 24 - 32 mEq/L [facility] Blood specimen (specimen) 01/27/2014 5:22 EDT 01/27/2014 6:10 EDT Abdiaziz Cruz MD CHEMISTRY & BLOOD GA S ORDERABLES Performing Organization Address [facility]/ZIP Co de Phone Number [facility] [address] [place] [address] * TRANSFUSE RED BLOOD CELLS (01/26/2014 21:54 EDT) Blood specimen (specimen) Abdiaziz Cruz MD NURSING TREATMENT - BLOOD ADMINISTRATION * TRANSFUSE RED BLOOD CELLS (01/26/2014 18:33 EDT) Blood specimen (specimen) Abdiaziz Cruz MD NURSING TREATMENT - BLOOD ADMINISTRATION * (ABNORMAL) DIFFERENTIAL (01/26/2014 17:53 EDT) Neutrophils 58.0 45.5 - 79.7 % [facility] Lymphocytes 28.0 15.0 - 46.8 % [facility] Monocytes 9.0 1.8 - 12.0 % [facility] Eosinophils 5.0 0.6 - 6.9 % [facility] ABS Neutrophils 1.46(L) 2.20 - 8.85 K/cmm [facility] ABS Lymphs 0.71(L) 1.09 - 3.30 K/cmm [facility] ABS Monocytes 0.23 0.1 - 0.8 K/cmm [facility] ABS Eosinophils 0.13 0.03 - 0.61 K/cmm [facility] Type of Diff: Manual [facility] 01/26/2014 17:5 3 EDT 01/26/2014 18:11 EDT Abdiaziz Cruz MD HEMATOLOGY & PF4 ORD ERABLES [facility] [address] [place] [address] * (ABNORMAL) HEMAGRAM (01/26/2014 17:53 EDT) WBC 2.53(L) 4.0 - 10.4 K/cmm [facility] RBC 2.85(L) 4.36 - 5.78 M/cmm [facility] Hemoglobin 8.0(L) 13.8 - 17.3 gm/dl [facility] HCT 24.2(L) 39.5 - 50.2 % [facility] MCV 85 81 - 95 fl [facility] MCH 27.9 27.6 - 33.0 pg [facility] MCHC 32.8 32.8 - 36.4 gm/dl [facility] PLT 80(L) 141 - 320 K/cmm [facility] RDW-CV 16.3(H) 11.8 - 14.1 % [facility] 01/26/2014 17:5 3 EDT 01/26/2014 18:11 EDT Abdiaziz Cruz MD HEMATOLOGY & PF4 ORD ERABLES Performing Organization Address City/[facility] Co de Phone Number [facility] [address] [place] [address] * INPATIENT ADD-ON (01/26/2014 9:55 EDT) Tests to be added DIFFERENTIAL [facility] Number for problems [id number] [facility] Accession number [id number] [facility] 01/26/2014 9:55 EDT 01/26/2014 10:05 EDT Abdiaziz Cruz MD HEMATOLOGY & PF4 ORD ERABLES Performing Organization Address [facility] Co de Phone Number [facility] [address] [place] [address] * ANTIBODY IDENTIFICATION (01/26/2014 9:27 EDT) Antibody Identification Anti-E Anti-c (joseph) [facility] 01/26/2014 9:27 EDT Provider Unknown MD BLOOD BANK TESTS Performing Organization Address City/[facility]/ZIP Co de Phone Number [facility] * PREPARE RED BLOOD CELLS (01/26/2014 8:05 EDT) Product Code E0336 -1 RED BLOOD CELLS, Leukocytes Reduced [facility] Donor Number [id number] [facility] Unit ABO A [facility] Rh POS [facility] BLOOD BANK Cross Match Interp Compatible [facility]LOOD [facility] Unit Status Transfuse [facility] 01/26/2014 8:05 EDT Provider Khurram LESTER BLOOD BANK ORDERABLE S [facility] * PREPARE RED BLOOD CELLS (01/26/2014 8:05 EDT) Product Code E0336 -1 RED BLOOD CELLS, Leukocytes Reduced [facility] Donor Number [id number] [facility] Unit [facility]LOOD [facility] Cross Match Interp Compatible [facility]OD [facility] Unit Status Transfuse [facility] Blood specimen (specimen) 01/26/2014 8:05 EDT Abdiaziz Cruz MD BLOOD BANK ORDERABLE S Performing Organization Address [facility]/ZIP Co de Phone Number [facility]OD [facility] * TYPE AND SCREEN (01/26/2014 8:05 EDT) Antibody Screen Positive [facility] Comment:SPECIMEN EXPIRES AT 23:59 ON 01/29/2014 ABO A [facility] Rh Factor Positive [facility] Blood specimen (specimen) 01/26/2014 8:05 EDT Abdiaziz Cruz MD BLOOD BANK TESTS [facility] * (ABNORMAL) DIFFERENTIAL (01/26/2014 5:19 EDT) Neutrophils 45.0(L) 45.5 - 79.7 % [facility] Lymphocytes 46.0 15.0 - 46.8 % [facility] Monocytes 5.0 1.8 - 12.0 % [facility] Eosinophils 4.0 0.6 - 6.9 % [facility] Nucleated RBC's 1 /100 WBC'S [facility] ABS Neutrophils 0.72(L) 2.20 - 8.85 K/cmm [facility] ABS Lymphs 0.75(L) 1.09 - 3.30 K/cmm [facility] ABS Monocytes 0.08(L) 0.1 - 0.8 K/cmm [facility] ABS Eosinophils 0.06 0.03 - 0.61 K/cmm [facility] Ovalocytes 2+ [facility] Type of Diff: Manual [facility] Differential Comment Rev'd by Pathologist [facility] 01/26/2014 5:19 EDT 01/26/2014 6:32 EDT Abdiaziz Cruz MD HEMATOLOGY & PF4 ORD ERABLES Performing Organization Address City/[facility] Co de Phone Number [facility] [address] [place] [address] * (ABNORMAL) HEMAGRAM (01/26/2014 5:19 EDT) WBC 1.61(L) 4.0 - 10.4 K/cmm [facility] RBC 2.29(L) 4.36 - 5.78 M/cmm [facility] Hemoglobin 6.4(LL) 13.8 - 17.3 gm/dl [facility] HCT 19.5(LL) 39.5 - 50.2 % [facility] MCV 85 81 - 95 fl [facility] MCH 28.1 27.6 - 33.0 pg [facility] MCHC 33.0 32.8 - 36.4 gm/dl [facility] PLT 70(L) 141 - 320 K/cmm [facility] RDW-CV 16.5(H) 11.8 - 14.1 % [facility] Comment:1+ Anisocytosis Blood specimen (specimen) 01/26/2014 5:19 EDT 01/26/2014 6:32 EDT Abdiaziz Cruz MD HEMATOLOGY & PF4 ORD ERABLES Performing Organization Address City/State/[facility] Co de Phone Number [facility] [address] [place] [address] * CREATININE (01/26/2014 5:19 EDT) Creatinine 0.90 0.66 - 1.25 mg/dl [facility] GFR, Calculated >60 >60 ml/min/1.7 3m2 [facility] Blood specimen (specimen) 01/26/2014 5:19 EDT 01/26/2014 6:32 EDT Abdiaziz Cruz MD CHEMISTRY & BLOOD GA S ORDERABLES Performing Organization Address [facility] Phone Number [facility] [address] [place] [address] * BUN (01/26/2014 5:19 EDT) BUN 19 10 - 26 mg/dl [facility] Blood specimen (specimen) 01/26/2014 5:19 EDT 01/26/2014 6:32 EDT Abdiaziz Cruz MD CHEMISTRY & BLOOD GA S ORDERABLES Performing Organization Address [facility] Phone Number [facility] [address] [place] [address] * (ABNORMAL) ELECTROLYTES (01/26/2014 5:19 EDT) Sodium 139 136 - 145 mEq/L [facility] Potassium 3.7 3.5 - 5.0 mEq/L [facility] Chloride 110 96 - 110 mEq/L [facility] CO2 22(L) 24 - 32 mEq/L [facility] Blood specimen (specimen) 01/26/2014 5:19 EDT 01/26/2014 6:32 EDT Abdiaziz Cruz MD CHEMISTRY & BLOOD GA S ORDERABLES Performing Organization Address [facility] Co de Phone Number [facility] [address] [place] [address] * (ABNORMAL) HEMAGRAM (01/25/2014 6:04 EDT) WBC 2.42(L) 4.0 - 10.4 K/cmm [facility] RBC 2.58(L) 4.36 - 5.78 M/cmm [facility] Hemoglobin 7.5(L) 13.8 - 17.3 gm/dl [facility] HCT 22.0(L) 39.5 - 50.2 % [facility] MCV 85 81 - 95 fl [facility] MCH 29.2 27.6 - 33.0 pg [facility] MCHC 34.2 32.8 - 36.4 gm/dl [facility] PLT 88(L) 141 - 320 K/cmm [facility] RDW-CV 16.8(H) 11.8 - 14.1 % [facility] Comment:1+ Anisocytosis Blood specimen (specimen) 01/25/2014 6:04 EDT 01/25/2014 6:44 EDT Abdiaziz Cruz MD HEMATOLOGY & PF4 ORD ERABLES Performing Organization Address City/[facility]/ZIP Co de Phone Number [facility] [address] [place] [address] * CREATININE (01/25/2014 6:04 EDT) Creatinine 1.13 0.66 - 1.25 mg/dl [facility] GFR, Calculated >60 >60 ml/min/1.7 3m2 [facility] Blood specimen (specimen) 01/25/2014 6:04 EDT 01/25/2014 6:44 EDT Abdiaziz Cruz MD CHEMISTRY & BLOOD GA S ORDERABLES [facility] [address] [place] [address] * BUN (01/25/2014 6:04 EDT) BUN 18 10 - 26 mg/dl [facility] Blood specimen (specimen) 01/25/2014 6:04 EDT 01/25/2014 6:44 EDT Abdiaziz Cruz MD CHEMISTRY & BLOOD ND S ORDERABLES Performing Organization Address [facility] de Phone Number [facility] [address] [place] [address] * (ABNORMAL) ELECTROLYTES (01/25/2014 6:04 EDT) Sodium 140 136 - 145 mEq/L [facility] Potassium 3.8 3.5 - 5.0 mEq/L [facility] Chloride 110 96 - 110 mEq/L [facility] CO2 21(L) 24 - 32 mEq/L [facility] Blood specimen (specimen) 01/25/2014 6:04 EDT 01/25/2014 6:44 EDT Abdiaziz Cruz MD CHEMISTRY & BLOOD ND S ORDERABLES Performing Organization Address [facility] de Phone Number [facility] [address] [place] [address] * (ABNORMAL) HEMAGRAM (01/24/2014 5:26 EDT) WBC 4.10 4.0 - 10.4 K/cmm [facility] RBC 2.78(L) 4.36 - 5.78 M/cmm [facility] Hemoglobin 7.9(L) 13.8 - 17.3 gm/dl [facility] HCT 23.9(L) 39.5 - 50.2 % [facility] MCV 86 81 - 95 fl [facility] MCH 28.2 27.6 - 33.0 pg [facility] MCHC 32.9 32.8 - 36.4 gm/dl [facility] PLT 130(L) 141 - 320 K/cmm [facility] RDW-CV 17.4(H) 11.8 - 14.1 % [facility] Comment:1+ Anisocytosis Blood specimen (specimen) 01/24/2014 5:26 EDT 01/24/2014 6:02 EDT Abdiaziz Cruz MD HEMATOLOGY & PF4 ORD ERABLES Performing Organization Address [facility] Co de Phone Number [facility] [address] [place] [address] * CREATININE (01/24/2014 5:26 EDT) Creatinine 1.15 0.66 - 1.25 mg/dl [facility] GFR, Calculated >60 >60 ml/min/1.7 3m2 [facility] Blood specimen (specimen) 01/24/2014 5:26 EDT 01/24/2014 6:02 EDT Abdiaziz Cruz MD CHEMISTRY & BLOOD GA S ORDERABLES Performing Organization Address [facility] de Phone Number [facility] [address] [place] [address] * BUN (01/24/2014 5:26 EDT) BUN 21 10 - 26 mg/dl [facility] Blood specimen (specimen) 01/24/2014 5:26 EDT 01/24/2014 6:02 EDT Abdiaziz Cruz MD CHEMISTRY & BLOOD GA S ORDERABLES Performing Organization Address [facility] de Phone Number [facility] [address] [place] [address] * (ABNORMAL) ELECTROLYTES (01/24/2014 5:26 EDT) Sodium 139 136 - 145 mEq/L [facility] Potassium 3.6 3.5 - 5.0 mEq/L [facility] Chloride 110 96 - 110 mEq/L [facility] CO2 20(L) 24 - 32 mEq/L [facility] Blood specimen (specimen) 01/24/2014 5:26 EDT 01/24/2014 6:02 EDT Abdiaziz Cruz MD CHEMISTRY & BLOOD GA S ORDERABLES Performing Organization Address [facility]/ZIP Co de Phone Number [facility] [address] [place] [address] * (ABNORMAL) HEMAGRAM (01/23/2014 21:30 EDT) WBC 4.38 4.0 - 10.4 K/cmm [facility] RBC 2.79(L) 4.36 - 5.78 M/cmm [facility] Hemoglobin 7.9(L) 13.8 - 17.3 gm/dl [facility] HCT 24.0(L) 39.5 - 50.2 % [facility] MCV 86 81 - 95 fl [facility] MCH 28.3 27.6 - 33.0 pg [facility] MCHC 32.9 32.8 - 36.4 gm/dl [facility] PLT 124(L) 141 - 320 K/cmm [facility] RDW-CV 17.4(H) 11.8 - 14.1 % [facility] Comment:1+ Anisocytosis Blood specimen (specimen) 01/23/2014 21:30 EDT 01/23/2014 21:39 EDT Abdiaziz Cruz MD HEMATOLOGY & PF4 ORD ERABLES [facility] [address] [place] [address] * (ABNORMAL) HEMAGRAM (01/23/2014 13:57 EDT) WBC 4.56 4.0 - 10.4 K/cmm [facility] RBC 2.91(L) 4.36 - 5.78 M/cmm [facility] Hemoglobin 8.2(L) 13.8 - 17.3 gm/dl [facility] HCT 24.9(L) 39.5 - 50.2 % [facility] MCV 86 81 - 95 fl [facility] MCH 28.3 27.6 - 33.0 pg [facility] MCHC 33.0 32.8 - 36.4 gm/dl [facility] PLT 146 141 - 320 K/cmm [facility] RDW-CV 17.4(H) 11.8 - 14.1 % [facility] Comment:1+ Anisocytosis Blood specimen (specimen) 01/23/2014 13:57 EDT 01/23/2014 14:27 EDT Abdiaziz Cruz MD HEMATOLOGY & PF4 ORD [facility] Performing Organization Address [facility] Co de Phone Number [facility] [address] [place] [address] * (ABNORMAL) HEMAGRAM (01/23/2014 5:45 EDT) WBC 3.80(L) 4.0 - 10.4 K/cmm [facility] RBC 2.66(L) 4.36 - 5.78 M/cmm [facility] Hemoglobin 7.5(L) 13.8 - 17.3 gm/dl [facility] HCT 22.7(L) 39.5 - 50.2 % [facility] MCV 85 81 - 95 fl [facility] MCH 28.2 27.6 - 33.0 pg [facility] MCHC 33.1 32.8 - 36.4 gm/dl [facility] PLT 106(L) 141 - 320 K/cmm [facility] RDW-CV 17.2(H) 11.8 - 14.1 % [facility] Comment:1+ Anisocytosis Blood specimen (specimen) 01/23/2014 5:45 EDT 01/23/2014 6:18 EDT Abdiaziz Cruz MD HEMATOLOGY & PF4 ORD ERABLES Performing Organization Address City/[facility]/ZIP Co de Phone Number [facility] [address] [place] [address] * CREATININE (01/23/2014 5:45 EDT) Creatinine 1.01 0.66 - 1.25 mg/dl [facility] GFR, Calculated >60 >60 ml/min/1.7 3m2 [facility] Blood specimen (specimen) 01/23/2014 5:45 EDT 01/23/2014 6:18 EDT Abdiaziz Cruz MD CHEMISTRY & BLOOD GA S ORDERABLES Performing Organization Address City/[facility] Co de Phone Number [facility] [address] [place] [address] * BUN (01/23/2014 5:45 EDT) BUN 26 10 - 26 mg/dl [facility] Blood specimen (specimen) 01/23/2014 5:45 EDT 01/23/2014 6:18 EDT Abdiaziz Cruz MD CHEMISTRY & BLOOD GA S ORDERABLES Performing Organization Address [facility] de Phone Number [facility] [address] [place] [address] * (ABNORMAL) ELECTROLYTES (01/23/2014 5:45 EDT) Sodium 143 136 - 145 mEq/L [facility] Potassium 4.0 3.5 - 5.0 mEq/L [facility] Chloride 114(H) 96 - 110 mEq/L [facility] CO2 19(L) 24 - 32 mEq/L [facility] Blood specimen (specimen) 01/23/2014 5:45 EDT 01/23/2014 6:18 EDT Abdiaziz Cruz MD CHEMISTRY & BLOOD GA S ORDERABLES Performing Organization Address [facility] Co de Phone Number [facility] [address] [place] [address] * (ABNORMAL) SCREENING GLUCOSE (01/23/2014 5:45 EDT) Glucose, Screening 122(H) 70 - 100 mg/dl [facility] Blood specimen (specimen) 01/23/2014 5:45 EDT 01/23/2014 6:18 EDT Abdiaziz Cruz MD CHEMISTRY & BLOOD GA S ORDERABLES Performing Organization Address City/[facility] Co de Phone Number [facility] [address] [place] [address] * TRANSFUSE RED BLOOD CELLS (01/23/2014 2:01 EDT) Blood specimen (specimen) Brant Mejia MD NURSING TREATMENT - BLOOD ADMINISTRATION * (ABNORMAL) HEMAGRAM (01/22/2014 21:24 EDT) WBC 3.79(L) 4.0 - 10.4 K/cmm [facility] Comment:Sample retested, res ult confirmed RBC 2.44(L) 4.36 - 5.78 M/cmm [facility] Comment:Sample retested, res ult confirmed Hemoglobin 6.8(LL) 13.8 - 17.3 gm/dl [facility] Comment:Sample retested, res ult confirmed HCT 20.9(LL) 39.5 - 50.2 % [facility] Comment:Sample retested, res ult confirmed MCV 86 81 - 95 fl [facility] Comment:Sample retested, res ult confirmed MCH 27.9 27.6 - 33.0 pg [facility] Comment:Sample retested, res ult confirmed MCHC 32.5(L) 32.8 - 36.4 gm/dl [facility] Comment:Sample retested, res ult confirmed PLT 101(L) 141 - 320 K/cmm [facility] Comment:Sample retested, res ult confirmed RDW-CV 17.8(H) 11.8 - 14.1 % [facility] Comment: 1+ Anisocytosis Sample retested, result confirmed Blood specimen (specimen) 01/22/2014 21:24 EDT 01/22/2014 21:34 EDT Abdiaziz Cruz MD HEMATOLOGY & PF4 ORD ERABLES [facility] [address] [place] [address] * (ABNORMAL) GLUCOSE, GLUCOMETER (01/22/2014 16:51 EDT) Glucose, Fingerstick 185(H) 70 - 100 mg/dl [facility] Test Examiner ID [id number] [facility] Comment:Test Performed by [facility] 01/22/2014 16:5 1 EDT 01/22/2014 16:52 EDT Manoj Valencia MD CHEMISTRY & BLOOD GAS ORDERABLES Performing Organization Address City/[facility]/ZIP Co de Phone Number [facility] [address] [place] [address] * ANTIBODY IDENTIFICATION (01/22/2014 11:09 EDT) Antibody Identification Anti-E Anti-c (little) [facility] 01/22/2014 11:0 9 EDT Provider Unknown BLOOD BANK TESTS Performing Organization Address City/[facility]/ZIP Co de Phone Number [facility] * PREPARE RED BLOOD CELLS (01/22/2014 10:30 EDT) Product Code E0336 -1 RED BLOOD CELLS, Leukocytes Reduced [facility] Donor Number [id number] [facility] Unit ABO A [facility] Rh POS [facility] Cross Match Interp Compatible [facility] Unit Status Released From [facility] 01/22/2014 10:3 0 EDT Provider Unknown BLOOD BANK ORDERABLE S [facility] * PREPARE RED BLOOD CELLS (01/22/2014 10:30 EDT) Product Code E0336 -1 RED BLOOD CELLS, Leukocytes Reduced [facility] Donor Number [id number] [facility] Unit ABO A [facility] Unit Rh POS [facility] Cross Match Interp Compatible [facility] Unit Status Transfuse [facility] Blood specimen (specimen) 01/22/2014 10:30 EDT Kalani Parsons MD BLOOD BANK ORDE JAR[facility] * TYPE AND SCREEN (01/22/2014 10:30 EDT) ABO A [facility] Rh Factor Positive [facility]OD [facility] Antibody Screen Positive [facility] Comment:SPECIMEN EXPIRES @[id number] Blood specimen (specimen) 01/22/2014 10:30 EDT Kalani Parsons MD BLOOD BANK TEST S Performing Organization Address [facility] Co de Phone Number [facility] * DIFFERENTIAL (01/22/2014 10:04 EDT) Neutrophils 61.0 45.5 - 79.7 % [facility] Lymphocytes 27.0 15.0 - 46.8 % [facility] Monocytes 9.0 1.8 - 12.0 % [facility] Eosinophils 3.0 0.6 - 6.9 % [facility] ABS Neutrophils 2.63 2.20 - 8.85 K/cmm [facility] ABS Lymphs 1.16 1.09 - 3.30 K/cmm [facility] ABS Monocytes 0.39 0.1 - 0.8 K/cmm [facility] Eosinophils 0.13 0.03 - 0.61 K/cmm [facility] Type of Diff: Manual [facility] 01/22/2014 10:0 4 EDT 01/22/2014 10:13 EDT Kalani Parsons MD HEMATOLOGY & PF 4 ORDERABLES Performing Organization Address City/[facility]/ZIP Co de Phone Number [facility] [address] [place] [address] * (ABNORMAL) HEMAGRAM (01/22/2014 10:04 EDT) WBC 4.31 4.0 - 10.4 K/cmm [facility] RBC 2.91(L) 4.36 - 5.78 M/cmm [facility] Hemoglobin 8.2(L) 13.8 - 17.3 gm/dl [facility] HCT 25.1(L) 39.5 - 50.2 % [facility] MCV 86 81 - 95 fl [facility] MCH 28.3 27.6 - 33.0 pg [facility] MCHC 32.7(L) 32.8 - 36.4 gm/dl [facility] PLT 116(L) 141 - 320 K/cmm [facility] RDW-CV 17.9(H) 11.8 - 14.1 % [facility] Comment:1+ Anisocytosis 01/22/2014 10:0 4 EDT 01/22/2014 10:13 EDT Kalani Parsons MD HEMATOLOGY & PF 4 ORDERABLES [facility] [address] [place] [address] * (ABNORMAL) COMPREHENSIVE METABOLIC PANEL (CMP) (01/22/2014 10:04 EDT) Potassium 4.8 3.5 - 5.0 mEq/L [facility] Sodium 140 136 - 145 mEq/L [facility] Chloride 108 96 - 110 mEq/L [facility] CO2 23(L) 24 - 32 mEq/L [facility] Total Alkaline Phosphatase 80 38 - 126 U/L [facility] Bilirubin, Total 0.7 <1.4 mg/dl [place] [facility] AST 53(H) 15 - 46 U/L [facility] ALT 54 21 - 72 U/L [facility] Albumin 3.3(L) 3.4 - 4.9 g/dl [facility] Total Protein 6.5 6.5 - 8.3 g/dl [facility] Creatinine 0.80 0.66 - 1.25 mg/dl [facility] GFR, Calculated >60 >60 ml/min/1.7 3m2 [facility] BUN 31(H) 10 - 26 mg/dl [facility] Calcium 8.7 8.5 - 10.5 mg/dl [facility] Calculated Calcium 9.8 8.5 - 10.5 mg/dl [facility] Glucose, Serum 213(H) 70 - 100 mg/dl [facility] Fasting? Unknown [facility] Blood specimen (specimen) 01/22/2014 10:04 EDT 01/22/2014 10:13 EDT Kalani Parsons MD CHEMISTRY & BLO OD GAS ORDERABLES Performing Organization Address [facility] de Phone Number [facility] [address] [place] [address] * (ABNORMAL) PTT (01/22/2014 10:04 EDT) PTT 25(L) 26 - 37 secs [facility] Comment:Therapeutic Heparin range: 65-100 seconds Blood specimen (specimen) 01/22/2014 10:04 EDT 01/22/2014 10:13 EDT Kalani Parsons MD HEMATOLOGY & PF 4 ORDERABLES Performing Organization Address [facility] Phone Number [facility] [address] [place] [address] * (ABNORMAL) PROTIME (01/22/2014 10:04 EDT) Pro Time 12.5(H) 9.5 - 12.3 secs [facility] I.N.R. 1.2(H) 0.9 - 1.1 Ratio [facility] Comment: Moderate Intensity Coumadin INR = 2.0-3.0 Adjustments in anticoagulant therapy dose should be based upon the INR and NOT the Pro Time. Blood specimen (specimen) 01/22/2014 10:04 EDT 01/22/2014 10:13 EDT Kalani Parsons MD HEMATOLOGY & PF 4 ORDERABLES Performing Organization Address [facility] de Phone Number [facility] [address] [place] [address] documented in this encounter Visit Diagnoses Diagnosis GI bleed- Primary Hemorrhage of gastrointestinal tract, unspecified Hematemesis Anemia Anemia, unspecified Thrombocytopenia (HCC-CMS) Thrombocytopenia, unspecified Portal hypertension (HCC-CMS) Portal hypertension Cirrhosis (HCC-CMS) Cirrhosis of liver without mention of alcohol Headache, acute Headache Leukopenia Leukocytopenia, unspecified Acute blood loss anemia Acute posthemorrhagic anemia Hematemesis documented in this encounter Admitting Diagnoses Diagnosis Hematemesis documented in this encounter Administered Medications Inactive Administered Medications - up to 3 most recent administrations Medication Order MAR Action Action Date Dose Rate Site acetaminophen (TYLENOL) tablet 1,000 mg 1,000 mg, oral, NOW X1, 1 dose, On Tue01/22/14 at 1430, STAT Given 01/22/2014 14:37 EDT 1,000 mg acetaminophen (TYLENOL) tablet 500 mg 500 mg, oral, EVERY 6 HOURS PRN, Starting on Tue01/22/14 at 1535, Until Tue01/29/14 at 1358, Pain, STAT Given 01/28/2014 17:31 EDT 500 mg Given 01/27/2014 21:53 EDT 500 mg Given 01/27/2014 12:00 EDT 500 mg carvedilol (COREG) tablet 6.25 mg 6.25 mg, oral, 2 TIMES DAILY WITH BREAKFAST & DINNER, First dose on Tue01/23/14 at 1700, Until Discontinued, Routine Given 01/29/2014 8:48 EDT 6.25 mg Given 01/28/2014 18:28 EDT 6.25 mg Given 01/28/2014 9:41 EDT 6.25 mg cefTRIAXone (ROCEPHIN) 1,000 mg in sodium chloride 0.9 % 50 mL IVPB 1,000 mg, intravenous, Administer over 30 Minutes, DAILY, 5 doses, First dose on Tue01/22/14 at 1900, Last dose on Tue01/26/14 at 0900, STAT Given 01/26/2014 9:48 EDT 1,000 mg Given 01/25/2014 9:28 EDT 1,000 mg Given 01/24/2014 9:10 EDT 1,000 mg cyanocobalamin tablet 1,000 mcg 1,000 mcg, oral, DAILY, First dose on Tue01/22/14 at 1345, Until Discontinued, STAT Given 01/29/2014 8:48 EDT 1,00 0 mcg Given 01/28/2014 9:40 EDT 1,000 mcg Given 01/27/2014 9:38 EDT 1,000 mcg fentaNYL citrate (PF) 50 mcg/mL injection 25-250 mcg 25-250 mcg, intravenous, ONCE PRN, 1 dose, Starting on Tue01/28/14 at 1212, Until Tue01/28/14 at 1458, Other, Radiology Procedure, Routine, Intraprocedure Given 01/28/2014 14:58 EDT 250 mcg folic acid (FOLVITE) tablet 1 mg 1 mg, oral, DAILY, First dose on Tue01/22/14 at 1600, Until Discontinued, STAT Given 01/29/2014 8:48 EDT 1 mg Given 01/28/2014 9:40 EDT 1 mg Given 01/27/2014 9:39 EDT 1 mg HYDROmorphone (PF) (DILAUDID) 1 mg/mL injection 0.5 mg 0.5 mg, intravenous, EVERY 4 HOURS PRN, Starting on Tue01/28/14 at 1811, Until Tue01/29/14 at 0718, Pain, Routine Given 01/29/2014 6:34 EDT 1 mg Given 01/29/2014 2:09 EDT 1 mg lactated ringers (LR) infusion at 75 mL/hr, intravenous, CONTINUOUS, Starting on Tue01/23/14 at 1645, Until 01/26/14 at 0949, Routine New Bag 01/26/2014 1:46 EDT 75 mL/hr Rate Documented 01/25/2014 18:00 EDT 75 mL/hr Rate Documented 01/25/2014 12:23 EDT 75 mL/hr lactated ringers BOLUS 1,000 mL 1,000 mL, intravenous, NOW X1, 1 dose, On Tue01/22/14 at 1600, STAT Given 01/22/2014 16:07 EDT 1,000 mL lactulose (CHRONULAC) 20 gram/30 mL solution 45 mL 45 mL (30 g), oral, 3 TIMES DAILY, First dose on Tue01/28/14 at 1645, Until Discontinued, Routine, Postprocedure Given 01/29/2014 8:48 EDT 45 mL Given 01/28/2014 21:23 EDT 45 mL Given 01/28/2014 18:27 EDT 45 mL midazolam (PF) (VERSED) 1 mg/mL injection 0.5-10 mg 0.5-10 mg, intravenous, ONCE PRN, 1 dose, Starting on Tue01/28/14 at 1212, Until Tue01/28/14 at 1520, Sedation, Routine, Intraprocedure Given 01/28/2014 15:20 EDT 7.5 mg nadolol (CORGARD) tablet 20 mg 20 mg, oral, DAILY, First dose on Tue01/22/14 at 1600, Until Discontinued, STAT Given 01/23/2014 9:06 EDT 20 mg octreotide (SANDOSTATIN) 50 mcg in sodium chloride (NS) 0.9 % 50 mL IVPB 50 mcg, intravenous, Administer over 15 Minutes, NOW X1, 1 dose, On Tue01/22/14 at 1130, STAT Given 01/22/2014 11:58 EDT 50 mcg octreotide (SANDOSTATIN) 50 mcg in sodium chloride (NS) 0.9 % 50 mL IVPB 50 mcg, intravenous, Administer over 15 Minutes, NOW X1, 1 dose, On Tue01/26/14 at 1815, Routine Given 01/26/2014 21:57 EDT 50 mcg octreotide (SANDOSTATIN) 500 mcg in sodium chloride (NS) 0.9 % 250 mL infusion 50 mcg/hr (rounded to 25 mL/hr), intravenous, CONTINUOUS, Starting on Tue01/22/14 at 1130, Until Tue01/22/14 at 1812, Routine New Bag 01/22/2014 12:24 EDT 50 mcg/hr 25 mL/hr octreotide (SANDOSTATIN) 500 mcg in sodium chloride (NS) 0.9 % 250 mL infusion 50 mcg/hr (rounded to 25 mL/hr), intravenous, CONTINUOUS, Starting on 01/26/14 at 1815, Until Tue01/28/14 at 1313, Routine Rate Documented 01/28/2014 7:56 EDT 50 mcg/hr 25 mL/hr New Bag 01/28/2014 6:44 EDT 50 mcg/hr 25 mL/hr New Bag 01/27/2014 19:55 EDT 50 mcg/hr 25 mL/hr ondansetron (PF) (ZOFRAN) injection 4 mg 4 mg, intravenous, NOW X1, 1 dose, On Tue01/22/14 at 1015, STAT Given 01/22/2014 10:13 EDT 4 mg ondansetron (PF) (ZOFRAN) injection 4 mg 4 mg, intravenous, NOW X1, 1 dose, On Tue01/22/14 at 1115, STAT Given 01/22/2014 11:35 EDT 4 mg ondansetron (PF) (ZOFRAN) injection 4 mg 4 mg, intravenous, EVERY 4 HOURS PRN, Starting on Tue01/22/14 at 1318, Until Tue01/29/14 at 1358, Nausea, Routine Given 01/28/2014 1:18 EDT 4 mg Given 01/27/2014 2:05 EDT 4 mg Given 01/26/2014 1:46 EDT 4 mg pantoprazole (PROTONIX) injection 40 mg 40 mg, intravenous, DAILY, First dose on Tue01/22/14 at 1830, Until Discontinued, Routine Given 01/29/2014 8:47 EDT 4 0 mg Given 01/28/2014 9:40 EDT 40 mg Given 01/27/2014 9:36 EDT 40 mg prochlorperazine edisylate (COMPAZINE) injection 10 mg 10 mg, intravenous, EVERY 6 HOURS PRN, Starting on Tue01/22/14 at 1642, Until Tue01/29/14 at 1358, Nausea, Routine Given 01/24/2014 20:51 EDT 10 mg pyridoxine (VITAMIN B6) tablet 50 mg 50 mg, oral, DAILY, First dose on Tue01/22/14 at 1345, Until Discontinued, STAT Given 01/29/2014 8:48 EDT 50 mg Given 01/28/2014 9:40 EDT 50 mg Given 01/27/2014 9:39 EDT 50 mg sodium chloride 0.9 % BOLUS 1,000 mL 1,000 mL, intravenous, Once (Without Time Specified), 1 dose, Starting on Tue01/22/14 at 1116, Until Tue01/22/14 at 1137, STAT Given 01/22/2014 11:37 EDT 1,00 0 mL thiamine (VITAMIN B1) tablet 100 mg 100 mg, oral, DAILY, First dose on Tue01/22/14 at 1345, Until Discontinued, STAT Given 01/29/2014 8:48 EDT 100 mg Given 01/28/2014 9:41 EDT 100 mg Given 01/27/2014 9:39 EDT 100 mg traMADol (ULTRAM) tablet 50 mg 50 mg, oral, EVERY 6 HOURS PRN, Starting on Tue01/22/14 at 1535, Until Tue01/29/14 at 1358, Pain, STAT Given 01/28/2014 17:45 EDT 50 mg Given 01/25/2014 18:45 EDT 50 mg documented in this encounter Discontinued Medications Medication Sig Discontinue Reason Start Date End Da te FERROUS FUMARATE (IRON ORAL)Indications:Chronic hepatitis C without mention of hepatic coma,Cirrhosis (HCC-CMS) Take by mouth. 014 nadolol (CORGARD) 20 mg tabletIndications:Chronic hepatitis C without mention of hepatic coma,Cirrhosis (HCC-CMS) Take 20 mg by mouth daily. 01/29/2014 documented as of this encounter Active and Recently Administered Medications Times are shown in EDT. Scheduled Medication Order 01/27/2014 01/28/2014 01/29/2014 carvedilol (COREG) tablet 6.25 mg 6.25 mg, oral, 2 TIMES DAILY WITH BREAKFAST & DINNER, First dose on Tue01/23/14 at 1700, Until Discontinued, Routine 0936 (Given - Provider: Kellie Driver RN)1843 (Given - Provider: Kellie Driver RN) 0941 (Given - Provider: Kellie Driver, RN)1828 (Given - Provider: Kellie Driver, RN) 0848 (Given - Provider: Saniya Andrade, RN) cyanocobalamin tablet 1,000 mcg 1,000 mcg, oral, DAILY, First dose on Tue01/22/14 at 1345, Until Discontinued, STAT 0938 (Given - Provider: Kellie Driver RN) 0940 (Given - Provider: Kellie Driver, RN) 0848 (Given - Provider: Saniya Andarde, RN) folic acid (FOLVITE) tablet 1 mg (CANCELED) 1 mg, oral, DAILY, First dose on Tue01/22/14 at 1600, Until Discontinued, STAT 0939 (Given - Provider: Kellie Driver RN) 0940 (Given - Provider: Kellie Driver, MELY) 0848 (Given - Provider: Saniya Andrade RN) lactulose (CHRONULAC) 20 gram/30 mL solution 45 mL 45 mL (30 g), oral, 3 TIMES DAILY, First dose on Tue01/28/14 at 1645, Until Discontinued, Routine, Postprocedure 1827 (Given - Provider: Kellie Driver RN)2123 (Given - Provider: Chen Salas RN) 0848 (Given - Provider: Saniya Andrade RN) pantoprazole (PROTONIX) injection 40 mg (CANCELED) 40 mg, intravenous, DAILY, First dose on Tue01/22/14 at 1830, Until Discontinued, Routine 0936 (Given - Provider: Kellie Driver RN) 0940 (Given - Provider: Kellie Driver RN) 0847 (Given - Provider: Saniya Andrade RN) pyridoxine (VITAMIN B6) tablet 50 mg 50 mg, oral, DAILY, First dose on Tue01/22/14 at 1345, Until Discontinued, STAT 0939 (Given - Provider: Kellie Driver RN) 0940 (Given - Provider: Kellie Driver RN) 0848 (Given - Provider: Saniya Andrade RN) thiamine (VITAMIN B1) tablet 100 mg 100 mg, oral, DAILY, First dose on Tue01/22/14 at 1345, Until Discontinued, STAT 0939 (Given - Provider: Kellie Driver RN) 0941 (Given - Provider: Kellie Driver RN) 0848 (Given - Provider: Saniya Andrade RN) Continuous Medication Order 01/27/2014 01/28/2014 01/29/2014 octreotide (SANDOSTATIN) 500 mcg in sodium chloride (NS) 0.9 % 250 mL infusion (CANCELED) 50 mcg/hr (rounded to 25 mL/hr), intravenous, CONTINUOUS, Starting on 01/26/14 at 1815, Until Tue01/28/14 at 1313, Routine 0727 (New Bag - Provider: Yasmin Velez RN)0728 (Rate Documented - Provider: Kellie Driver RN)1217 (Rate Documented - Provider: Harris Gold RN)1955 (New Bag - Provider: Kellie Driver RN) 0644 (New Bag - Provider: Seema Rico RN)0756 (Rate Documented - Provider: Kellie Driver, RN) PRN Medication Order 01/27/2014 01/28/2014 01/29/2014 acetaminophen (TYLENOL) tablet 500 mg (CANCELED) 500 mg, oral, EVERY 6 HOURS PRN, Starting on Tue01/22/14 at 1535, Until Tue01/29/14 at 1358, Pain, STAT 0331 (Given - Provider: Yasmin Velez, RN)1200 (Given - Provider: Kellie Driver, RN)2153 (Given - Provider: Seema Rico, RN) 1731 (Given - Provider: Elzbieta Bronson RN) fentaNYL citrate (PF) 50 mcg/mL injection 25-250 mcg (COMPLETED) 25-250 mcg, intravenous, ONCE PRN, 1 dose, Starting on Tue01/28/14 at 1212, Until Tue01/28/14 at 1458, Other, Radiology Procedure, Routine, Intraprocedure 1458 (Given - Provider: Adelaide Fuentes, MELY) HYDROmorphone (PF) (DILAUDID) 1 mg/mL injection 0.5 mg (CANCELED) 0.5 mg, intravenous, EVERY 4 HOURS PRN, Starting on Tue01/28/14 at 1811, Until Tue01/29/14 at 0718, Pain, Routine 0209 (Given - Provider: Chen Salas, MELY)0634 (Given - Provider: Chen Salas, MELY) midazolam (PF) (VERSED) 1 mg/mL injection 0.5-10 mg (COMPLETED) 0.5-10 mg, intravenous, ONCE PRN, 1 dose, Starting on Tue01/28/14 at 1212, Until Tue01/28/14 at 1520, Sedation, Routine, Intraprocedure 1520 (Given - Provider: Adelaide Fuentes, MELY) ondansetron (PF) (ZOFRAN) injection 4 mg (CANCELED) 4 mg, intravenous, EVERY 4 HOURS PRN, Starting on Tue01/22/14 at 1318, Until Tue01/29/14 at 1358, Nausea, Routine 0205 (Given - Provider: Yasmin Velez RN) 0118 (Given - Provider: Seema Rico, MELY) traMADol (ULTRAM) tablet 50 mg 50 mg, oral, EVERY 6 HOURS PRN, Starting on Tue01/22/14 at 1535, Until Tue01/29/14 at 1358, Pain, STAT 1745 (Given - Provider: Kellie Driver RN) documented in this encounter Orders Medications Ordered That Jamison ht Not Have Been Administered Count Last Ordered Date First Ordered Date fentaNYL citrate (PF) 50 mcg /mL injection 25-250 mcg 1 01/28/2014 bisacodyl (DULCOLAX) EC tablet 10 mg 1 01/09 bisacodyl (DULCOLAX) suppository 10 mg 1 docusate sodium (COLACE) capsule 100 mg 1 1 ondansetron (PF) (ZOFRAN) injection 4 mg 1 01/22/2014 senna (SENOKOT) tablet 2 Tab 1 01/22/2014 Diet Count Last Ordered Date First Orde red Date DISCHARGE DIET 1 01/29/2014 Nursing Count Last Ordered Date First Orde red Date ACTIVITY INSTRUCTIONS 1 01/29/2014 BATHING INSTRUCTIONS 1 01/29/2014 DRIVING INSTRUCTIONS 1 01/29/2014 CONTRAINDICATION TO ANTICOAG ULATION THERAPY 1 01/22/2014 INSERT PERIPHERAL IV 3 01/22/2014 IV Count Last Ordered Date First Orde red Date IV REQUEST 3 01/26/2014 01/22/2014 Admission Count Last Ordered Date First Orde red Date STATUS: INPATIENT ACUTE ADMISSION 2 014 Transfer Count Last Ordered Date First Orde red Date NOTIFY PPS OF DISCHARGE COMPLETE 1 01/30/20 14 CHANGE ATTENDING TO: 1 01/28/2014 PPS NOTIFICATION OF PATIENT ARRIVAL ON UNIT 2 01/28/2014 01/22/2014 Discharge Count Last Ordered Date First Orde red Date DISCHARGE PATIENT 1 01/29/2014 Legal Count Last Ordered Date First Orde red Date MISCELLANEOUS DISCHARGE INSTRUCTIONS 1 01/10 documented in this encounter Care Teams Film Editor Relationship Specialty Start Date End Date Kamala Rosado MD [address] [address] PCP - General 10/05/13 10/19/15 documented as of this encounter
--- OUTSIDE RECORDS SUMMARY | 2023-12-21 12:10 | XMS_ITS | Encounter Summary ---
Author Organization [facility] Address [address] [place] [address] Care Team Providers Care Salesperson Sheet Music Name Role Phone Kamala Rosado MD Primary Care Provider [phone] Encounter Details Date Type Department Care Team (Late st Contact Info) Description 12/11/2013 8:28 EDT - 12/11/2013 23:59 EDT Hospital Encounter [place] [id number] Broyd Duran MD PhD [address] [place] [address], [address] [place] [address] Discharge Disposition: Auto Discharge Social [...] you have serious difficulty h earing? No 10/05/2013 Are you blind or do you have serious difficulty seeing, even when wearing glasses? No 10/05/2013 Do you have serious difficul ty walking or climbing stairs? (5 years old or older) No 10/05/2013 Do you have difficulty dress ing or bathing? (5 years old or older) No 10/05/2013 Cognitive Status Response Date of Assessm ent Because of a physical, menta l, or emotional condition, do you have serious difficulty concentrating, remembering, or making decisions? (5 years old or older) Yes 10/05/2013 documented as of this encounter Discharge Diagnoses Diagnosis 571.5 CIRRHOSIS OF LIVER NOS[ICD-9-CM] documented in this encounter Medications at Time of Discharge Medication Sig Dispensed Refills Start Date End Date FERROUS FUMARATE (IRON ORAL)Indications:Chronic hepatitis C without mention of hepatic coma,Cirrhosis (HCC-CMS) Take by mouth. 1 FOLIC ACID ORALIndications:Chronic hepatitis C without mention of hepatic coma,Cirrhosis (HCC-CMS) Take 5 mg by mouth daily. 04/30/2014 nadolol (CORGARD) 20 mg tabletIndications:Chronic hepatitis C without mention of hepatic coma,Cirrhosis (HCC-CMS) Take 20 mg by mouth daily. 01/29/2014 pantoprazole (PROTONIX) 40 mg tablet Take 40 mg by mouth daily. 01/12/2014 documented as of this encounter Discharge Disposition Disposition Code Departure Means Destination Auto Discharge Home documented in this encounter Plan of Treatment Upcoming Encounters Date Type Department Care Team (Late st Contact Info) Description 01/23/2024 10:00 EDT Office Visit [facility] General Surgery - [address] [id number] Bon Gutierrez MD [address] [facility], [address] [place] [phone] 09/10/2024 10:00 EDT Appointment Shaina Mejia [address] [place] [address] documented as of this encounter Visit Diagnoses Not on filedocumented in this encounter Care Teams Salesperson Sheet Music Relationship Specialty Start Date End Date Kamala Rosado MD [address] [address] PCP - General 10/05/13 10/19/15 documented as of this encounter
--- OUTSIDE RECORDS SUMMARY | 2023-12-21 12:10 | XMS_ITS | Encounter Summary ---
Author Organization [facility] Address [address] [place] [address] Care Team Providers Care Director Of Resource Development Name Role Phone Barbra Vaughn MD Primary Care Provider [phone] Encounter Details Date Type Department Care Team (Late st Contact Info) Description 06/18/2013 9:56 EDT - 06/18/2013 23:59 EDT Hospital Encounter [address] [address] Brody Duran MD PhD [address] [place] [address], [address] [place] [address] Discharge Disposition: Home or Self Care Social [...] documented as of this encounter Functional Status Cognitive Status Response Date of Assessm ent Because of a physical, menta l, or emotional condition, do you have serious difficulty concentrating, remembering, or making decisions? (5 years old or older) Yes 06/15/2013 documented as of this encounter Discharge Diagnoses Diagnosis V72.5 RADIOLOGICAL EXAM NEC[ICD-9-CM] documented in this encounter Medications at Time of Discharge Medication Sig Dispensed Refills Start Date End Date acetaminophen-codeine (TYLENOL #3) 300-30 mg per tablet Take 1 Tab by mouth as needed for Pain. 10/05/2013 FERROUS FUMARATE (IRON ORAL)Indications:Chroni c hepatitis C without mention of hepatic coma,Cirrhosis (HCC-CMS) Take by mouth. 01/29/2014 FOLIC ACID ORALIndications:Chronic hepatitis C without mention of hepatic coma,Cirrhosis (HCC-CMS) Take 5 mg by mouth daily. 04/30/2014 nadolol (CORGARD) 20 mg tabletIndications:Chron ic hepatitis C without mention of hepatic coma,Cirrhosis (HCC-CMS) Take 20 mg by mouth daily. 01/29/2014 Norfloxacin (NOROXIN) 400 mg tablet Take 1 Tab by mouth BEFORE BREAKFAST & DINNER. 20 Each 0 06/17/2013 10/05/2013 pantoprazole (PROTONIX) 40 mg tabletIndications:Chron ic hepatitis C without mention of hepatic coma,Cirrhosis (HCC-CMS) Take 1 Tab by mouth 2 times daily for 30 days. 60 Tab 0 06/16/2013 07/16/2013 documented as of this encounter Discharge Disposition Disposition Code Departure Means Destination Home or Self [place] documented in this encounter Plan of Treatment Upcoming Encounters Date Type Department Care Team (Late st Contact Info) Description 01/23/2024 10:00 EDT Office Visit [facility] General Surgery - [facility] [address] [place], [place] [phone] Bon Gutierrez MD [address] [facility], [address] [place] [phone] 09/10/2024 10:00 EDT Appointment Shaina Mejia [address] [place] [phone] documented as of this encounter Visit Diagnoses Not on filedocumented in this encounter Care Teams Director Of Resource Development Relationship Specialty Start Date End Date Barbra Vaughn MD [address] [facility] [address] [place] [address] PCP - General 02/27/13 10/04/13 documented as of this encounter
--- OUTSIDE RECORDS SUMMARY | 2023-12-21 12:10 | XMS_ITS | Encounter Summary ---
Author Organization [facility] Address [address] [place] [address] Care Team Providers Care International Sales Representative Name Role Phone Kamala Rosado MD Primary Care Provider [phone] Encounter Details Date Type Department Care Team (Latest Contact Info) Description 01/23/2014 Orders Only [facility] Gastroenterology - Main [place] [address] [place] [address] Eden Toscano RN GI (gastrointestinal bleed) (Primary Dx) Social History Tobacco Use Types [...] Visit [facility] General Surgery - [address] [address] Bon Gutierrez MD [address] [facility], [address] [place] [phone] 09/10/2024 10:00 EDT Appointment Shaina Bergeron [address] [address] Scheduled Orders Name Type Priority Associated Diagnoses Orde r Schedule CAPSULE ENDOSCOPY GI Routine GI (gastrointestinal bleed) Ordered: 01/23/2014 documented as of this encounter Visit Diagnoses Diagnosis GI (gastrointestinal bleed)- Primary Hemorrhage of gastrointestinal tract, unspecified documented in this encounter Care Teams International Sales Representative Relationship Specialty Start Date End Date Kamala Rosado MD [address] [address] PCP - General 10/05/13 10/19/15 documented as of this encounter
--- OUTSIDE RECORDS SUMMARY | 2023-12-21 12:10 | XMS_ITS | Encounter Summary ---
Author Organization [facility] Address [address] [place] [address] Care Team Providers Care Web Production Artist Name Role Phone Barbra Vaughn MD Primary Care Provider [phone] Reason for Visit * Reason Onset Date Comments Other 06/27/2013 PCP would like t o speak with Dr. Duran about patient's follow-up care. Encounter Details Date Type Department Care Team (Late st Contact Info) Description 06/27/2013 Telephone [facility] Gastroenterology - [address] [phone] Brody Duran MD PhD [address] [place] [address] [address] [place] [address] Other (PCP would like to speak with Dr. Duran about patient's follow-up care. ) Social History Tobacco Use Types Packs/Day [...] Yes 06/15/2013 documented as of this encounter Miscellaneous Notes * Telephone Encounter - Eden Toscano RN - 06/27/2013 0858 EDT Barbara @ [facility] was called back & given PAS # for to reach directly to discuss plan of care for this patient. documented in this encounter Plan of Treatment Upcoming Encounters Date Type Department Care Team (Late st Contact Info) Description 01/23/2024 10:00 EDT Office Visit [facility] General Surgery - [facility] [address] [place], [place] [address] Bon Gutierrez MD 111 [facility], [address] [place] [phone] 09/10/2024 10:00 EDT Appointment Shaina Mejia [address] [place], [place] [phone] documented as of this encounter Visit Diagnoses Not on filedocumented in this encounter Care Teams Web Production Artist Relationship Specialty Start Date End Date Barbra Vaughn MD [address] [facility] [address] [place] [address] PCP - General 02/27/13 10/04/13 documented as of this encounter
--- OUTSIDE RECORDS SUMMARY | 2023-12-21 12:10 | XMS_ITS | Encounter Summary ---
Author Organization [facility] Address [address] [place] [address] Care Team Providers Care Acid Plant Helper Name Role Phone Barbra Vaughn MD Primary Care Provider [phone] Encounter Details Date Type Department Care Team (Late st Contact Info) Description 07/10/2013 Phlebotomy Only [address] [address] Tractor Drill Operator, Outpatient Cirrhosis of liver (CMS-HCC) (HCC-CMS); Chronic hepatitis C without mention of hepatic [...] Yes 06/15/2013 documented as of this encounter Plan of Treatment Upcoming Encounters Date Type Department Care Team (Late st Contact Info) Description 01/23/2024 10:00 EDT Office Visit [facility] General Surgery [address] [address] Bon Gutierrez MD 111 [facility], [address] [place] [address] 09/10/2024 10:00 EDT Appointment Shaina Bergeron Ultrasound [address] [place] [address] documented as of this encounter Procedures Procedure Name Priority Date/Time Associated Diagnosis Comments PROTIME Routine 07/10/2013 16:51 EDT Cirrhosis of liver (CMS-HCC) (HCC-CMS) Chronic hepatitis C without mention of hepatic coma COMPLETE BLOOD COUNT Routine 07/10/2013 16:51 EDT Cirrhosis of liver (CMS-HCC) (HCC-CMS) Chronic hepatitis C without mention of hepatic coma COMPREHENSIVE METABOLIC PANEL (CMP) Routine 07/10/2013 16:51 EDT Cirrhosis of liver (CMS-HCC) (HCC-CMS) Chronic hepatitis C without mention of hepatic coma documented in this encounter Results * PROTIME (07/10/2013 16:51 EDT) Pro Time 13.1 9.5 - 13.1 secs [facility] I.N.R. 1.1 0.9 - 1.1 Ratio [facility] Comment: Moderate Intensity Coumadin INR = 2.0-3.0 Adjustments in anticoagulant therapy dose should be based upon the INR and NOT the Pro Time. Blood specimen (specimen) 07/10/2013 16:51 EDT 07/10/2013 17:40 EDT Brody Duran MD PhD HEMATOLOGY & PF 4 ORDERABLES [facility] [address] [place] [address] * (ABNORMAL) HEMAGRAM (07/10/2013 16:51 EDT) WBC 3.62(L) 4.0 - 10.4 K/cmm [facility] RBC 3.79(L) 4.36 - 5.78 M/cmm [facility] Hemoglobin 10.0(L) 13.8 - 17.3 gm/dl [facility] HCT 30.6(L) 39.5 - 50.2 % [facility] MCV 81 81 - 95 fl [facility] MCH 26.4(L) 27.6 - 33.0 pg [facility] MCHC 32.7(L) 32.8 - 36.4 gm/dl [facility] PLT 149 141 - 320 K/cmm [facility] RDW-CV 19.1(H) 11.8 - 14.1 % [facility] Blood specimen (specimen) 07/10/2013 16:51 EDT 07/10/2013 17:40 EDT Brody Duran MD PhD HEMATOLOGY & PF 4 ORDERABLES [facility] [address] [place] [address] * (ABNORMAL) COMPREHENSIVE METABOLIC PANEL (CMP) (07/10/2013 16:51 EDT) Potassium 4.3 3.5 - 5.0 mEq/L [facility] Sodium 144 136 - 145 mEq/L [facility] Chloride 107 96 - 110 mEq/L [facility] CO2 25 24 - 32 mEq/L [facility] Total Alkaline Phosphatase 83 38 - 126 U/L [facility] Bilirubin, Total 0.8 <1.4 mg/dl [facility] AST 41 15 - 46 U/L [facility] ALT 38 21 - 72 U/L [facility] Albumin 4.0 3.4 - 4.9 g/dl [facility] Total Protein 7.6 6.5 - 8.3 g/dl [facility] Creatinine 0.90 0.66 - 1.25 mg/dl [facility] GFR, Calculated >60 >60 ml/min/1.7 3m2 [facility] BUN 17 10 - 26 mg/dl [facility] Calcium 9.0 8.5 - 10.5 mg/dl [facility] Calculated Calcium 9.4 8.5 - 10.5 mg/dl [facility] Glucose, Serum 121(H) 70 - 100 mg/dl [facility] Fasting? Unknown [facility] Blood specimen (specimen) 07/10/2013 16:51 EDT 07/10/2013 17:40 EDT Brody Duran MD PhD CHEMISTRY & BLO OD GAS ORDERABLES [facility] [address] [place] [address] documented in this encounter Visit Diagnoses Diagnosis Cirrhosis of liver (HCC-CMS) Cirrhosis of liver without mention of alcohol Chronic hepatitis C without mention of hepatic coma documented in this encounter Care Teams Acid Plant Helper Relationship Specialty Start Date End Date Barbra Vaughn MD [address] [place] [address] PCP - General 02/27/13 10/04/13 documented as of this encounter
--- OUTSIDE RECORDS SUMMARY | 2023-12-21 12:10 | XMS_ITS | Encounter Summary ---
Author Organization [facility] Address [address] [place] [address] Care Team Providers Care Director Epidemiology Name Role Phone Kamala Rosado MD Primary Care Provider [phone] Reason for Visit * Reason Onset Date Comments Other 01/07/2014 Encounter Details Date Type Department Care Team (Late st Contact Info) Description 01/07/2014 Telephone [facility] Gastroenterology - [address] [phone] Brody Duran MD PhD [address] [facility], [address] [place] [address] Other Social History Tobacco Use Types Packs/Day [...] Yes 10/05/2013 documented as of this encounter Miscellaneous Notes * Telephone Encounter - Eden Toscano RN - 01/07/2014 1400 EDT The patient has concerns about recent bloodwork results done at his PCP.s office Dr.Clea Rosado in [place]. He would like ,s input. was made aware, reports he has not seen these labs, recommends the patient call the PCPto discuss results further & if needed, would be happy to speak with if she has questions/concerns. He verbalized understanding documented in this encounter Plan of Treatment Upcoming Encounters Date Type Department Care Team (Late st Contact Info) Description 01/23/2024 10:00 EDT Office Visit [facility] General Surgery - [facility] [address] [place], [place] [address] Bon Gutierrez MD [address] [facility], [address] [place] [address] 09/10/2024 10:00 EDT Appointment Shaina Bergeron [place] [phone] [place], [place] [address] documented as of this encounter Visit Diagnoses Not on filedocumented in this encounter Care Teams Director Epidemiology Relationship Specialty Start Date End Date Kamala Rosado MD [address] [address] PCP - General 10/05/13 10/19/15 documented as of this encounter
--- OUTSIDE RECORDS SUMMARY | 2023-12-21 12:10 | XMS_ITS | Encounter Summary ---
Author Organization [facility] Address [address] [place] [address] Care Team Providers Care Retirement Sales Consultant Name Role Phone Kamala Rosado MD Primary Care Provider [phone] Reason for Referral * Radiology Services (Routine) - Closed Specialty Diagnoses / Procedures Referred By [facility] Referred To Contact Diagnoses Hepatitis C Cirrhosis (HCC-CMS) Portal hypertension (HCC-CMS) Esophageal varices (HCC-CMS) Portal hypertensive gastropathy (HCC-CMS) S/P TIPS (transjugular intrahepatic portosystemic shunt) Procedures RAD US LIVER WITH DOPPLER Guicho Rosales MD [address] [facility] [address] [place] [address] Referral ID Status Reason Start Date Expiration Date Visits Re quested Visits Authorized [id number] Closed 01/28/2014 1 1 Encounter Details Date Type Department Care Team (Late st Contact Info) Description 01/28/2014 Orders Only [facility] Interventional Radiology - [facility] [address] [place] [address] Zac Rollins MD [address] [place] [phone] Hepatitis C (Primary Dx); Cirrhosis (CMS-HCC) (HCC-CMS); Portal hypertension (HCC-CMS); Esophageal varices (CMS-HCC) (HCC-CMS); Portal hypertensive gastropathy; S/P TIPS (transjugular intrahepatic portosystemic shunt) Social History Tobacco Use Types Packs/Day Years [...] Info) Description 01/23/2024 10:00 EDT Office Visit [facility] General Surgery - [address] [address] Bon Gutierrez MD [address] [place] [address], [address] [place] [address] 09/10/2024 10:00 EDT Appointment Shaina Bergeron Ultrasound [address] [place] [phone] documented as of this encounter Procedures Procedure Name Priority Date/Time Associated Diagnosis Comments RAD US LIVER WITH DOPPLER Routine 04/30/2014 8:27 EST Hepatitis C Cirrhosis (CMS-HCC) (HCC-CMS) Portal hypertension (HCC-CMS) Esophageal varices (CMS-HCC) (HCC-CMS) Portal hypertensive gastropathy S/P TIPS (transjugular intrahepatic portosystemic shunt) documented in this encounter Results * RAD US LIVER WITH DOPPLER (04/30/2014 8:27 EST) Anatomical Region Laterality Modality Other 04/30/2014 8:27 EST 04/30/2014 11:05 EST Narrative 04/30/2014 11:05 EST RAD US LIVER WITH DOPPLER ??04/30/2014 8:27 AM Signs and Symptoms/Comments: ??070.70-Unspecified viral hepatitis C without hepatic zukt-FFP-0-CM 571.5-Cirrhosis of liver without mention of lzxgins-HDY-3-CM; 58M with cirrhosis, hepatitis, GI bleeding. S/P TIPS placement on 01/28/2014. Please evaluate TIPS. Comparison: CT abdomen 4 months prior. No comparison post TIPS ultrasound Findings: Static and cinematic grayscale, color, and spectral Doppler ultrasound of the liver was performed to evaluate TIPS. Exam was extremely challenging secondary to patient body habitus. The liver demonstrates a coarse, heterogeneous echotexture with nodularity compatible with history of cirrhosis. The liver measures 14.7 cm. No focal hepatic mass or biliary ductal dilatation is identified. The TIPS shunt is patent. There is no evidence of thrombus within the visible portal or hepatic venous system. No ascites, varices, or recanalized paraumbilical vein is identified. Baseline shunt velocities are as follows: In the main portal vein anastomosis the velocity is 18 cm/sec. In the proximal TIPS the velocity is 29 cm/sec. In the mid TIPS the velocity is 56 cm/sec. In the distal TIPS the velocity is 66 cm/sec. In the right hepatic vein anastomosis the velocity is 75 cm/sec. The direction of the left portal vein flow is hepatofugal. The direction of flow in the right portal vein is hepatofugal. Impression: 1. Baseline TIPS study with low peak shunt velocities, particularly within the proximal shunt. Given challenges of study due to patient body habitus, stenosis is not excluded, please clinically correlate. A followup study would be helpful as needed. 2. Findings consistent with cirrhosis. I have personally reviewed the images and the above interpretation and agree with the findings. Procedure Note 04/30/2014 RAD US LIVER WITH DOPPLER 04/30/2014 8:27 AM Signs and Symptoms/Comments: 070.70-Unspecified viral hepatitis C without hepatic ozvy-JJW-1-CM 571.5-Cirrhosis of liver without mention of grqlpoy-MZU-0-CM; 58M with cirrhosis, hepatitis, GI bleeding. S/P TIPS placement on 01/28/2014. Please evaluate TIPS. Comparison: CT abdomen 4 months prior. No comparison post TIPS ultrasound Findings: Static and cinematic grayscale, color, and spectral Doppler ultrasound of the liver was performed to evaluate TIPS. Exam was extremely challenging secondary to patient body habitus. The liver demonstrates a coarse, heterogeneous echotexture with nodularity compatible with history of cirrhosis. The liver measures 14.7 cm. No focal hepatic mass or biliary ductal dilatation is identified. The TIPS shunt is patent. There is no evidence of thrombus within the visible portal or hepatic venous system. No ascites, varices, or recanalized paraumbilical vein is identified. Baseline shunt velocities are as follows: In the main portal vein anastomosis the velocity is 18 cm/sec. In the proximal TIPS the velocity is 29 cm/sec. In the mid TIPS the velocity is 56 cm/sec. In the distal TIPS the velocity is 66 cm/sec. In the right hepatic vein anastomosis the velocity is 75 cm/sec. The direction of the left portal vein flow is hepatofugal. The direction of flow in the right portal vein is hepatofugal. Impression: 1. Baseline TIPS study with low peak shunt velocities, particularly within the proximal shunt. Given challenges of study due to patient body habitus, stenosis is not excluded, please clinically correlate. A followup study would be helpful as needed. 2. Findings consistent with cirrhosis. I have personally reviewed the images and the above interpretation and agree with the findings. Guicho Rosales MD G US ORDER CLAUDIO documented in this encounter Visit Diagnoses Diagnosis Hepatitis C- Primary Unspecified viral hepatitis C without hepatic coma Cirrhosis (HCC-CMS) Cirrhosis of liver without mention of alcohol Portal hypertension (HCC-CMS) Portal hypertension Esophageal varices (HCC-CMS) Esophageal varices without mention of bleeding Portal hypertensive gastropathy (HCC-CMS) Other specified disorder of stomach and duodenum S/P TIPS (transjugular intrahepatic portosystemic shunt) Other postprocedural status documented in this encounter Care Teams Retirement Sales Consultant Relationship Specialty Start Date End Date Kamala Rosado MD [address] [address] PCP - General 10/05/13 10/19/15 documented as of this encounter
--- OUTSIDE RECORDS SUMMARY | 2023-12-21 12:10 | XMS_ITS | Encounter Summary ---
Author Organization [facility] Address [address] [place] [address] Care Team Providers Care Crossing Watchman Name Role Phone Kamala Rosado MD Primary Care Provider [phone] Reason for Visit * Reason Onset Date Comments Hospital Discharge Follow Up 01/14/2014 Encounter Details Date Type Department Care Team (Late st Contact Info) Description 01/14/2014 Telephone [facility] [address] [place] [phone] [facility] Up Social History Tobacco Use Types Packs/Day Years [...] you have serious difficulty h earing? No 01/08/2014 Are you blind or do you have serious difficulty seeing, even when wearing glasses? No 01/08/2014 Do you have serious difficul ty walking or climbing stairs? (5 years old or older) No 01/08/2014 Do you have difficulty dress ing or bathing? (5 years old or older) No 01/08/2014 Because of a physical, menta l, or emotional condition, do you have difficulty doing errands alone such as visiting a doctor's office or shopping? (15 years old or older) No 01/08/2014 Cognitive Status Response Date of Assessm ent Because of a physical, menta l, or emotional condition, do you have serious difficulty concentrating, remembering, or making decisions? (5 years old or older) Yes 01/08/2014 documented as of this encounter Miscellaneous Notes * Telephone Encounter - [facility] - 01/14/2014 1348 EDT Called patient in follow-up from discharge. Patient says he is fine. He will have follow-up with PCP early in Feb. [facility]uf[facility] Hospitalist Service [phone] 01/14/2014 documented in this encounter Plan of Treatment Upcoming Encounters Date Type Department Care Team (Late st Contact Info) Description 01/23/2024 10:00 EDT Office Visit [facility] General Surgery - [address] [phone] Bon Gutierrez MD [address] [facility], [address] [place] [phone] 09/10/2024 10:00 EDT Appointment Shaina Bergeron [phone] [place], [place] [phone] documented as of this encounter Visit Diagnoses Not on filedocumented in this encounter Care Teams Crossing Watchman Relationship Specialty Start Date End Date Kamala Rosado MD [address] [address] PCP - General 10/05/13 10/19/15 documented as of this encounter
--- OUTSIDE RECORDS SUMMARY | 2023-12-21 12:10 | XMS_ITS | Encounter Summary ---
Author Organization [facility] Address [address] [place] [address] Care Team Providers Care Duplicator Punch Set Up Operator Name Role Phone Kamala Rosado MD Primary Care Provider [phone] Reason for Visit * Reason Comments Rectal Bleeding pt started to have b loody stools about one week ago for 2 dys then resolved. has had loose black stools for about 2 dys with fatigue and abd pain Encounter Details Date Type Department Care Team (Late st Contact Info) Description 10/05/2013 20:27 EDT - 10/06/2013 15:20 EDT Hospital Encounter [facility] Hematology & Oncology Unit [address], [place] [id number] Deedee Silver PA-C 111 [facility], [address] [place] [address] Radha Gamboa MD [address] [address] GI bleed (Primary Dx); Cirrhosis (CMS-HCC) (HCC-CMS); Thrombocytopenia (CMS-HCC) Discharge Disposition: Home or Self Care Social [...] Sign Reading Time Taken Comments Blood Pressure 101/58 10/06/2013 1400 EDT Pulse 65 10/06/2013 1400 EDT Temperature 37 ??C (98.6 ??F) 10/06/2013 1400 EDT Respiratory Rate 16 10/06/2013 1400 EDT Oxygen Saturation 98% 10/06/2013 1400 EDT Inhaled Oxygen Concentration - - Weight 86.7 kg (191 lb 2.2 oz) 10/06/2013 0834 E DT Height 162.6 cm (5' 4) 10/05/20132119 EDT Body Mass Index 32.81 10/05/2013 212 EDT documented in this encounter Functional Status [...] 10/05/2013 documented as of this encounter Discharge Summaries * Radha Gamboa MD - 10/06/2013 1345 EDT Discharge Summary Attending Physician: Radha Gamboa MD Date of Admission: 10/05/2013 Date of Discharge: 10/06/2013 Disposition: Home Reason for Admission: GI Bleed Hospital Problems: Principal Problem: GI bleed Principal Procedure: None Secondary Procedures: None Hospital Course: Mr. Urbina 58-year-old gentleman with history of HCV, previous alcohol abuse, cirrhosis, complicated by esophageal varices, status post banding in 2007, previous GI bleeds, requiring multiple admissions, though no source ever found, despite EGD, colonoscopy, capsule endoscopy, andnegative packed RBC scan, now presenting to the emergency room for black, tarry stools x1 week, cons istent with an upper GI bleed. The patient was subsequently admitted for further evaluation. On admission the patient was afebrile and hemodynamically stable. The patient's Hgb was 10.4, Hct 33.3, Plt 113. The patient was found to have no evidence of active bleeding and was started on 40 mg pantoprazole and ciprofloxacin 500 mg twice daily for GI prophylaxis. GI was consulted and felt that no intervention was indicated. It was also noted that pt is on iron supplementation, which may be contributing to his black-appearing stool. Pt remained stable and was discharged to home with instructions to follow up with his PCP. Physical Exam: General: Well appearing, in no acute distress. HEENT: Normocephalic, EOMI, MMM, No Lymphadenopathy Lungs: Clear to auscultation bilaterally, no crackles, wheezes Heart: RRR, S1, S2 present. Abdomen: Non-distended, Non-tender to palpation, No guarding or rebound. Extremities: Pulses intact throughout, no edema Neuro: Awake and responds to questions appropriately. Skin: No rashes, non-icteric Clinical Issues Needing Follow-up: NONE Results Pending at Discharge: Test results still pending from this admission None Discharge Medications: CONTINUE taking these medications Sig FOLIC ACID ORAL 5 mg, oral, DAILY IRON ORAL oral nadolol 20 mg tablet Commonly known as: CORGARD 20 mg, oral, DAILY pantoprazole 40 mg tablet Commonly known as: PROTONIX 40 mg, oral, DAILY Allergies: Ambien Appointments Scheduled with Adarsh Bergeron in the Next 3 Months: NONE Follow-Up Appointments and Procedures Recommended to Patient: NONE Follow-Up Labs and Tests: NONE Brant Mejia MD 10/06/2013 Attestation: Pt seen and examined. I have reviewed Dr. Mejia's note and agree with his summary as outlined above, with my additions in blue. Radha Gamboa MD, MPH documented in this encounter Discharge Instructions * Discharge Instr - Other Orders* Brant Mejia MD - 10/06/2013 13:27 EDT Follow up with PCP within one week of discharge. documented in this encounter Medications at Time [...] daily. 01/12/2014 documented as of this encounter Ordered Prescriptions Prescription Sig Dispensed Refills Start Date End Da te docusate sodium (COLACE) 100 mg capsule Take 1 Cap by mouth 2 times daily as needed for Constipation. 30 Cap 10/06/2013 10/06/2013 documented in this encounter Discharge Disposition Disposition Code Departure Means Destination Home or Self Care documented in this encounter H&P Notes * Radha Gamboa MD - 10/05/2013 2103 EDT Medicine Admitting H&P Admit Date: 10/05/2013 Date of Service: 10/05/2013 PCP: Kamala Rosado MD Chief Complaint: melena HPI: Patient is a pleasant 58-year-old gentleman with history of HCV, previous alcohol abuse, cirrhosis,complicated by esophageal varices, status post banding in 2007, previous GI bleeds, requiring multiple admissions, though no source ever found, despite EGD, colonoscopy, capsule endoscopy, and negative packed RBC scan, now presenting to the emergency room for black, tarry stools x1 week, consistentwith an upper GI bleed. Patient reports that approximately 9 days prior to presentation, he developed dark, black stools lasting for approximately 2 days and then resolving. One week later, 2 days prior to admission, he again developed black, tarry stools, worse than during his previous episode. He endorses feeling fatigued, but he denies abdominal pain, vomiting, bright red blood per rectum, lightheadedness or dizziness. He denies any chest pain, shortness of breath, nausea, vomiting, or recent illnesses, fevers or chills, no diarrhea. He does not have a history of bleeding disorders. However, given this recurrent presentation and his history of previous GI bleeds, he decided to present to the emergency room for further evaluation. In the emergency room, patient is afebrile and hemodynamically stable. Labs of note include hemoglobin of 10.4, platelets of 113, creatinine 0.7 and mildly elevated to transaminases with AST and ALT of 158 and 103, respectively. Patient was evaluated by the GI service in the emergency room, no urgent EGD was indicated at this time. He was subsequently admitted to the medicine service for further management. PMH PSH Past Medical History Diagnosis Date ??? Anemia ??? Depression ??? Chronic kidney disease ??? Hepatitis C ??? Cirrhosis of liver ??? Esophageal varices ??? Chronic back pain ??? Leg numbness ??? Colon polyp ??? Mental disorder Past Surgical History Procedure Laterality Date ??? Esophageal varice ligation 2008 or 2009 ??? Hernia repair hiatal hernia ??? Back surgery 1973, 1980 ??? Shoulder surgery 20 years ago Social History Family History History Substance Use Topics ??? Smoking status: Never Smoker ??? Smokeless tobacco: Never Used ??? Alcohol Use: No Lives in [place], [place], with fiance; on disability due to scoliosis and encephalopathy. Not currentlyusing ETOH, but had been a fairly heavy drinker in the past. Family History Problem Relation Age of Onset ??? Cancer Mother ??? Breast Cancer Mother ??? Alcohol Abuse Father ??? Cancer Father ??? Diabetes Father ??? Cancer Sister ??? Crohn's Disease Sister ??? Diabetes Sister ??? Cancer Brother ??? Anesth Problems Brother ??? Cancer Sister ??? Anesth Problems Sister Medications No current facility-administered medications on file prior to encounter. Current Outpatient Prescriptions on File Prior to Encounter Medication Sig Dispense Refill ??? FERROUS FUMARATE (IRON ORAL) Take by mouth. ??? FOLIC ACID ORAL Take 5 mg by mouth daily. ??? nadolol (CORGARD) 20 mg tablet Take 20 mg by mouth daily. Allergies Allergies Allergen Reactions ??? Ambien (Zolpidem) Sleep-driving Review of Systems: A ten point review of systems was performed. Pertinent positives are listed in HPI, all others are negative. Objective/Physical Exam: VS: Patient Vitals for the past 8 hrs: BP Heart Rate Resp Temp SpO2 10/05/13 1900 113/65 mmHg 56 BPM 16 36.4 ??C (97.5 ??F) 100 % 10/05/13 1324 122/75 mmHg 68 BPM 16 36.1 ??C (97 ??F) 100 % Exam: Gen: A&O x3, friendly and cooperative, in NAD HEENT: head atraumatic, sclera anicteric, MMM, oropharynx non-erythematous without any lesions, supple neck Pulm: CTAB, no r,r,w; good air movement throughout CV: RRR, 2/6 systolic murmur, no lower extremity edema, radial pulses 2+ Abdomen: soft, non-tender non-distended, normal BT; Skin: no rashes, hematoma or petechiae appreciated; spider angiomata over chest Neuro: A&O x3, answering questions appropriately, grossly no focal neurologic deficits Pressure Ulcer Present on admission? No Data Review: I have independently visualized the Labs: I have personally reviewed CBC: Lab Results Component Value Date WBC 3.21* 10/05/2013 RBC 4.34* 10/05/2013 HGB 10.4* 10/05/2013 HCT 33.3* 10/05/2013 MCV 77* 10/05/2013 MCH 24.0* 10/05/2013 MCHC 31.3* 10/05/2013 PLT 113* 10/05/2013 NEUTROABS 1.84* 10/05/2013 BMP: Lab Results Component Value Date NA 140 10/05/2013 K 4.5 10/05/2013 CL 106 10/05/2013 CO2 22* 10/05/2013 BUN 24 10/05/2013 CREATININE 0.70 10/05/2013 CALCIUM 9.0 07/10/2013 LABALBU 4.0 10/05/2013 Coagulation: Lab Results Component Value Date PROTIME 11.9 10/05/2013 INR 1.1 10/05/2013 PTT 31 06/14/2013 Other Studies: no new imaging studies Assessment/Problems: Patient is a pleasant 58-year-old gentleman with history of HCV, previous alcohol abuse, cirrhosis,complicated by esophageal varices, status post banding in 2007, previous GI bleeds, requiring multiple admissions, though no source was found, despite EGD, colonoscopy, capsule endoscopy, and negative packed RBC scan, now presenting to the emergency room for lack, tarry stools x1 week, consistent with an upper GI bleed. Patient is currently hemodynamically stable, no indication for urgent EGD. GIfollowing, will admit to the medicine service for further management. Plan: GIB: Patient presented with melena, consistent with upper GI bleed; history of varices, though patient currently stable no signs of active bleeding - GI consulted, appreciate recs and assistance - daily CBC for now, very stable and no evidence of active bleeding at this time - pantoprazole 40 mg by mouth twice a day - We will start ciprofloxacin 500 mg by mouth twice a day for GI prophylaxis, plan for seven-day treatment - At this time we will continue to monitor with plan for EGD on Tuesday Cirrhosis: Complicated by esophageal varices status post banding - Continue nadolol 20 mg by mouth daily Thrombocytopenia: Chronic, improved from several months ago - We will continue to monitor with daily CBCs FEN: regular diet TLD: PIV PPx: pantoprazole 40mg PO BID, holding heparin in setting of GIB Code Status: DNR/DNI Dispo: most likely home early next week Haile Zuniga MD 10/05/2013 20:39 Attestation: Pt seen and examined; I have reviewed Dr. Zuniga's note and agree with his findings, A and P as outlined above, with my additions in blue. I have personally reviewed the laboratory and radiology results. I have personally spoken with housestaff, ED staff. Radha Gamboa MD, MPH documented in this encounter Consult Notes * Gera Nguyễn MD - 10/08/2013 1354 EDT Red Blood Cell Antibody Note-Pathology Patient: Alonzo Urbina Alonzo Urbina is blood group A pos and found to have additional RBC antibodies (anti-c and anti-E).. Please give Blood Bank advance notice of possible need for transfusion due to additional time needed to identify compatible RBC units for this patient (19% of donors are randomly compatible). Gera Nguyễn MD 10/08/2013 13:55 * José Catalan MD - 10/05/2013 6919 EDT Gastroenterology & Hepatology Consult Note The Gastroenterology service was consulted to see Alonzo Urbina for question of GI bleeding Requesting Physician: Deedee Yi PA Impression and Recommendations: 58 y.o.male with a medical history of HCV, etoh abuse (now sober), cirrhosis complicated by esophageal varices (banded in 2007 and on nadolol), GI bleeding in 2012 with no known source (EGD, colonoscopy, capsule endoscopy) and repeat bleeding in 2013 with no clear bleeding source (EGD done) and negative tagged RBC scan, CKD, and chronic back pain who presents with black stools. The patient has a stable H&H and no melena on rectal exam. We do not think he is having a significant GI bleed and there is no indication for urgent endoscopy. We do think given the history of cirrhosis, change in bowel habits, and past bleeds that the patient should be admitted for observation. If there is evidence for significant GI bleeding, he should be transferred to the medical ICU for u rgent endoscopy. - Admit for monitoring - Oral ciprofloxacin x7 days for infection prophylaxis - Continue PPI at home dose This patient was seen and examined with Dr. Alayna Jennings MD Pager #[phone] Gastroenterology & Hepatology Fellow 10/05/2013 17:39 HPI: 58 y.o.male with a medical history of HCV, etoh abuse (now sober), cirrhosis complicated by esophageal varices (banded in 2007 and on nadolol), GI bleeding in 2012 with no known source (EGD, colonoscopy, capsule endoscopy) and repeat bleeding in 2013 with no clear bleeding source (EGD done) and negative tagged RBC scan, CKD, and chronic back pain who presents with black stools. He had been doing well since his discharge back in June of 2013. One and a half weeks ago he noticed 2 formed black stools. He had been on a PPI for one month following discharge but self discontinued this. He restarted his PPI a little more than one week ago. 2 days ago he had an additional blackformed stool which last evening became liquid. The patient denies any NSAID use or alcohol use. No medication changes. He denies any weight change, confusion, or abdominal distention. The patient denies any recent history of fevers, chills, abdominal pain, appetite loss, red blood in stools, constipation, diarrhea, heartburn, hematemesis, nausea/vomiting or swallowing difficulty/pain. ROS: Full review of systems was negative [...] repair hiatal hernia ??? Back surgery 1973, 1980 ??? Shoulder surgery 20 years ago No current facility-administered medications for this encounter. Current Outpatient Prescriptions Medication Sig Dispense Refill ??? FERROUS FUMARATE (IRON ORAL) Take by mouth. ??? FOLIC ACID ORAL Take 5 mg by mouth daily. ??? nadolol (CORGARD) 20 mg tablet Take 20 mg by mouth daily. ??? pantoprazole (PROTONIX) 40 mg tablet Take 40 mg by mouth daily. (Not in a hospital admission) Allergies Allergen Reactions ??? Ambien (Zolpidem) Sleep-driving History Social History ??? Marital Status: Spouse Name: N/A Number of Children: N/A ??? Years of Education: N/A Occupational History ??? Not on file. Social History Main Topics ??? Smoking status: Never Smoker ??? Smokeless tobacco: Never Used ??? Alcohol Use: No ??? Drug Use: No ??? Sexually Active: Yes -- Female partner(s) Other Topics Concern ??? Not on file [...] Cancer Sister ??? Anesth Problems Sister PE: BP 122/75 Temp(Src) 36.1 ??C (97 ??F) (Tympanic) Resp 16 Ht 162.6 cm (64) Wt 86.183 kg (190 lb) BMI 32.6 kg/m2 SpO2 100% No intake or output data in the 24 hours ending 10/05/13 1739 Gen: Well appearing, NAD, A+Ox3, normal color HEENT: No conjunctival icterus CV: RRR, no m/g/r Lungs: CTA bilaterally GI: non-distended; soft, non-tender, no organomegaly; BS+ Rectal Exam: Scant brown/green stool Neuro: no gross motor or sensory deficits Extrem: WWP, no LE edema Skin: No rash Laboratory: Labs reviewed, pertinent results are as follows: Recent Labs 10/05/13 1451 HGB 10.4* HCT 33.3* MCV 77* PLT 113* WBC 3.21* Recent Labs 10/05/13 1451 CREATININE 0.70 BUN 24 NA 140 K 4.5 CL 106 CO2 22* Recent Labs 10/05/13 1451 TBIL 1.1 ALKPHOS 100 AST 158* ALT 103* LIPASE 227 Recent Labs 10/05/13 1451 PROTIME 11.9 INR 1.1 Attestation statement: I saw and examined the patient with the resident/fellow. I agree with the findings and plan of care documented in the resident's/fellow's note. documented in this encounter ED Notes * Hong Brody RN - 10/05/2013 5989 EDT Pt transferred to [facility] via in stable condition with transport. * Deedee Silver PA - 10/05/2013 7844 EDT DOS: 10/05/2013 Chief Complaint Patient presents with ??? Rectal Bleeding pt started to have bloody stools about one week ago for 2 dys then resolved. has had loose black stools for about 2 dys with fatigue and abd pain The patient is a 58 y.o. male who presents today with Rectal Bleeding HPI Comments: Patient presents to the emergency department from his primary care provider's office for evaluation of rectal bleeding/dark tarry stools. Patient reports that he started to have black tarry stools Approximately a week ago for just a short period of time. This resolved on its own. The patient reports that he again developed black tarry stools or very loose 2 days ago and it has been an ongoing issue since. He should not reports multiple bouts of black tarry diarrhea a day. Patient reports some fatigue. Denies dizziness lightheaded or syncope Denies abdominal pain, distention or swelling. Denies shortness of breath or chest pain. No fever sweats or chills. Patient has a history of GI bleeds and has had extensive workup and hospitalizations at both department and here at [facility]. Last admission was 06/22. Should not also has history of cirrhosis of the liver is hep C positive. The history is provided by the patient. Review of Systems Constitutional: Positive for activity change and fatigue. Negative for fever, chills, diaphoresis and appetite change. HENT: Negative for congestion, facial swelling, trouble swallowing, neck pain, neck stiffness and voice change. Eyes: Negative for pain, discharge and itching. Respiratory: Negative for apnea, cough, choking, chest tightness, shortness of breath, wheezing andstridor. Cardiovascular: Negative for chest pain, palpitations and leg swelling. Gastrointestinal: Positive for diarrhea and blood in stool. Negative for nausea, vomiting, abdominal pain, constipation, abdominal distention and rectal pain. Genitourinary: Negative for dysuria, urgency, frequency, hematuria, flank pain, decreased urine volume and difficulty urinating. Musculoskeletal: Negative for myalgias, back pain, joint swelling and arthralgias. Skin: Negative for color change. Neurological: Negative for dizziness, tremors, seizures, syncope, facial asymmetry, speech difficulty, weakness, light-headedness, numbness and headaches. Psychiatric/Behavioral: Negative for behavioral problems and agitation. Past Medical History Diagnosis Date ??? Anemia [...] years ago Allergies Allergen Reactions ??? Ambien (Zolpidem) Sleep-driving History Substance Use Topics ??? Smoking [...] Sister Vital Signs Vitals Reassessment?: Yes Temp: 36 ??C (96.8 ??F) Temp src: Tympanic Heart Rate: 56 BPM Resp: 16 SpO2: 100 % BP: 147/83 mmHg BP Device: BP Machine Patient Position: Sitting BP Cuff Location: Right arm Orthostatic Vitals: Yes O2 Device: None (Room air) Physical Exam Constitutional: He is oriented to person, place, and time. He appears well- developed and well-nourished. No distress. HENT: Head: Normocephalic and atraumatic. Right Ear: External ear normal. Left Ear: External ear normal. Mouth/Throat: Oropharynx is clear and moist. Eyes: Conjunctivae and EOM are normal. Pupils are equal, round, and reactive to light. No scleral icterus. Neck: Normal range of motion. Neck supple. Cardiovascular: Normal rate, regular rhythm and intact distal pulses. Murmur heard. Pulmonary/Chest: Effort normal and breath sounds normal. No respiratory distress. He has no wheezes. He has no rales. He exhibits no tenderness. Abdominal: Soft. Bowel sounds are normal. He exhibits distension. He exhibits no mass. There is no tenderness. There is no rebound and no guarding. Genitourinary: Prostate normal. Rectal exam shows external hemorrhoid and internal hemorrhoid. Rectal exam shows no mass, no tenderness and anal tone normal. Guaiac positive stool. black and tarry stool in the rectum Musculoskeletal: Normal range of motion. He exhibits no edema and no tenderness. Lymphadenopathy: He has no cervical adenopathy. Neurological: He is alert and oriented to person, place, and time. Coordination normal. Skin: Skin is warm and dry. He is not diaphoretic. No erythema. Psychiatric: He has a normal mood and affect. Radiology orders: None Imaging Results None Lab Results ANTIBODY IDENTIFICATION (Final result) Component (Lab Inquiry) Collection Time Result Time AB Identification 10/05/13 19:17:00 10/05/13 19:18:47 Anti-E Anti-c (little) PREPARE RED BLOOD CELLS (Final result) Component (Lab Inquiry) Collection Time Result Time Product Code Donor Number Unit ABO Unit Rh Cross Match [facility] 10/05/13 18:42:00 10/05/13 19:19:58 E0382 -3 RED BLOOD CELLS, Leukocytes Reduced [id number] POS Compatible Collection Time Result Time Unit Status 10/05/13 18:42:00 10/05/13 19:19:58 Crossmatch PREPARE RED BLOOD CELLS (Final result) Component (Lab Inquiry) Collection Time Result Time Product Code Donor Number Unit ABO Unit Rh Cross Match [facility] 10/05/13 18:42:00 10/05/13 19:19:59 E0382 -3 RED BLOOD CELLS, Leukocytes Reduced [id number] POS Compatible Collection Time Result Time Unit Status 10/05/13 18:42:00 10/05/13 19:19:59 Crossmatch PREPARE RED BLOOD CELLS (Final result) Component (Lab Inquiry) Collection Time Result Time Product Code Donor Number Unit ABO Unit Rh Cross Match [facility] 10/05/13 18:42:00 10/05/13 19:20:00 E0382 -3 RED BLOOD CELLS, Leukocytes Reduced [id number] POS Compatible Collection Time Result Time Unit Status 10/05/13 18:42:00 10/05/13 19:20:00 Crossmatch PREPARE RED BLOOD CELLS (Final result) Component (Lab Inquiry) Collection Time Result Time Product Code Donor Number Unit ABO Unit Rh Cross Match [facility] 10/05/13 18:42:00 10/05/13 19:20:02 E0382 -3 RED BLOOD CELLS, Leukocytes Reduced [id number] POS Compatible Collection Time Result Time Unit Status 10/05/13 18:42:00 10/05/13 19:20:02 Crossmatch C ANTIGEN (LITTLE) (Final result) Component (Lab Inquiry) Collection Time Result Time c Antigen (joseph) 10/05/13 18:27:00 10/05/13 20:43:20 Negative E ANTIGEN (Final result) Component (Lab Inquiry) Collection Time Result Time E Antigen 10/05/13 18:27:00 10/05/13 18:41:37 Negative ANTIBODY IDENTIFICATION (In process) Result time: 10/05/13 17:39:46 ANTIBODY IDENTIFICATION (Final result) Component (Lab Inquiry) Collection Time Result Time AB Identification 10/05/13 17:39:00 10/05/13 18:38:55 Anti-E Anti-c (joseph) BLOOD BANK ADDITIONAL SPECIMEN (Final result) Component (Lab Inquiry) Collection Time Result Time ABO Rh Factor 10/05/13 17:35:00 10/05/13 17:42:23 A Positive POCT URINE DIPSTICK (Final result) Component (Lab Inquiry) Collection Time Result Time Color Clarity, UA Glucose Bilirubin Ketones 10/05/13 15:45:00 10/05/13 15:54:31 YELLOW Clear Neg Neg Neg Collection Time Result Time Specific Rogers Blood pH Protein Urobilinogen 10/05/13 15:45:00 10/05/13 15:54:31 1.025 Neg 5.5 Neg 0.2 Collection Time Result Time Nitrite Leuk Esterase TECH ID 10/05/13 15:45:00 10/05/13 15:54:31 Neg Neg [id number] Test performed at Emergency Department ELECTROLYTES (Final result) Abnormal Component (Lab Inquiry) Collection Time Result Time Sodium Potassium Chloride CO2 10/05/13 14:51:00 10/05/13 15:43:08 140 4.5 106 22 (L) BUN (Final result) Component (Lab Inquiry) Collection Time Result Time BUN 10/05/13 14:51:00 10/05/13 15:43:08 24 CREATININE (Final result) Component (Lab Inquiry) Collection Time Result Time Creatinine GFR, Calculated 10/05/13 14:51:00 10/05/13 15:43:08 0.70 >60 HEPATIC FUNCTION PANEL (ALB,ALK PHOS,ALT,AST,DBIL,TOT MARVEL,TOT PROT) (Final result) Abnormal Component (Lab Inquiry) Collection Time Result Time Albumin Total Protein Total Alkaline Phosphatase ALT AST 10/05/13 14:51:00 10/05/13 15:43:08 4.0 7.9 100 103 (H) 158 (H) Collection Time Result Time Unconjugated Bilirubin Conjugated Bilirubin Bilirubin, Total 10/05/13 14:51:00 10/05/13 15:43:08 0.8 0.0 1.1 LIPASE (Final result) Component (Lab Inquiry) Collection Time Result Time LIPASE 10/05/13 14:51:00 10/05/13 15:43:08 227 HEMAGRAM AND DIFFERENTIAL (Final result) Result time: 10/05/13 15:06:16 PROTIME (Final result) Component (Lab Inquiry) Collection Time Result Time Pro Time I.N.R. 10/05/13 14:51:00 10/05/13 15:27:54 11.9 1.1 Moderate Intensity Coumadin INR = 2.0-3.0 Adjustments in anticoagulant therapy dose should be basedupon the INR and NOT the Pro Time. HEMAGRAM (Final result) Abnormal Component (Lab Inquiry) Collection Time Result Time WBC RBC Hemoglobin HCT MCV 10/05/13 14:51:00 10/05/13 15:45:34 3.21 (L) 4.34 (L) 10.4 (L) 33.3 (L) 77 (L) Collection Time Result Time MCH MCHC PLT RDW-CV 10/05/13 14:51:00 10/05/13 15:45:34 24.0 (L) 31.3 (L) 113 (L) 20.6 (H) DIFFERENTIAL (Final result) Abnormal Component (Lab Inquiry) Collection Time Result Time Neutrophils Lymphocytes Monocytes Eosinophils Basophils 10/05/13 14:51:00 10/05/13 15:45:38 57.1 26.4 12.9 (H) 2.9 0.7 Collection Time Result Time ABS Neutrophils ABS Lymphs ABS Monocytes ABS Eosinophils ABS Basophils 10/05/13 14:51:00 10/05/13 15:45:38 1.84 (L) 0.85 (L) 0.41 0.09 0.02 Collection Time Result Time Type of Diff: 10/05/13 14:51:00 10/05/13 15:45:38 Automated TYPE AND SCREEN (Final result) Component (Lab Inquiry) Collection Time Result Time ABO Rh Factor Antibody Screen 10/05/13 14:40:00 10/05/13 17:39:46 A Positive Positive sample expires 10/08/2013 at 23:59. Procedures ED Course: A medical screening exam was performed. Patient was examined and is medically stable and neurovascularly intact. vital signs are stable. Orthostatic vital signs are normal. Hematocrit stable. GI consulted and evaluated the patient. Then will be for admission to medicine for observation for potential decreasing hematocrit with GI following. Disposition: Admitted The patient's pain was managed to an adequate level weighing risk vs. benefit of further medications. Upon departure from the Emergency Department, the patient's pain was 0 on a zero to ten scale. Condition at departure from the Emergency Department: Stable ED Current Prescriptions None MDM Number of Diagnoses or Management Options GI bleed: new, needed workup Amount and/or Complexity of Data Reviewed Clinical lab tests: ordered and reviewed Risk of Complications, Morbidity, and/or Mortality Presenting problems: moderate Diagnostic procedures: low Management options: low Patient Progress Patient progress: stable Final diagnoses: GI bleed PCP: MD iMke Hyman was available for supervision. 10/05/2013 22:17 * Hank Rodas - 10/05/2013 1504 EDT Blood drawn via saline lock per protocol, tiger, blue, purple and pink tube(s) sent to lab per order. documented in this encounter Miscellaneous Notes * Plan of Care - Barbara Read - 10/06/2013 1454 EDT Focus: Discharge D: Pt noted with discharge orders to home. A: Reviewed discharge paperwork and prescriptions with patient. IV D/C???d Belongings collected and sent home with patient. R: Pt verbalized understanding of discharge paperwork and denied further questions. Pt left floor via ambulation. Barbara Read RN 10/06/2013 14:54 * Plan of Care - Shantal Beverly RN - 10/05/2013 2131 EDT Problem: HOSPITAL ORIENTATION/SAFETY Goal: Oriented To Hospital Environment Outcome: Met This Shift Focus: Education Packet D: Pt admitted to [facility] 9-2 @ 3 . A: Patient oriented to room and use of call sullivan. Shep 4 welcome packet containing map, menu, ???Call Someone Now?? pamphlet, advanced directives information, [facility] falls prevention information, provided to and reviewed with Patient. R: Call Sullivan: Pt demonstrates appropriate use. Advance Directives: Pt has advanced directives not yet on file @ [facility]. Fall Precautions and: Call Someone Now Pt verbalizes understanding of printed materials. Pt resting comfortably in bed with call sullivan in reach. Will continue to monitor throughout the night. Shantal Beverly RN 10/05/2013 21:30 documented in this encounter Plan of Treatment Upcoming Encounters Date Type Department Care Team (Late st Contact Info) Description 01/23/2024 10:00 EDT Office Visit [facility] - [facility] [address], [place] [id number] Bon Gutierrez MD [address] [facility], [address] [place] [phone] 09/10/2024 10:00 EDT Appointment Shaina Mejia [address] [place] [address] Pending Results Name Type Priority Associated Diagnoses Date /Time ANTIBODY IDENTIFICATION Blood Bank Routine 0 10/05/2013 17:39 EDT Scheduled Orders Name Type Priority Associated Diagnoses Orde r Schedule ANTIBODY IDENTIFICATION Blood Bank Routine O ne Time for 1 Occurrences starting 10/05/2013 until 10/05/2013 documented as of this encounter Procedures Procedure Name Priority Date/Time Associated Diagnosis Comments SCREENING GLUCOSE Routine 10/06/2013 6:2 2 EDT DIFFERENTIAL Routine 10/06/2013 6:22 EDT PROTIME Routine 10/06/2013 6:22 EDT COMPLETE BLOOD COUNT Routine 10/06/2013 6:22 EDT COMPLETE BLOOD COUNT AND DIFFERENTIAL Routine 10/06/2013 6:22 EDT BUN Routine 10/06/2013 6:22 EDT ALT Routine 10/06/2013 6:22 EDT AST Routine 10/06/2013 6:22 EDT ALKALINE PHOSPHATASE Routine 10/06/2013 6:22 EDT CREATININE Routine 10/06/2013 6:22 EDT BILIRUBIN, TOTAL Routine 10/06/2013 6:22 EDT ELECTROLYTES Routine 10/06/2013 6:22 EDT ANTIBODY IDENTIFICATION Routine 10/06/19 14 19:17 EDT PREPARE RED BLOOD CELLS Routine 10/06/19 14 18:42 EDT PREPARE RED BLOOD CELLS Routine 10/06/19 14 18:42 EDT PREPARE RED BLOOD CELLS Routine 10/06/19 14 18:42 EDT PREPARE RED BLOOD CELLS Routine 10/06/19 14 18:42 EDT C (LITTLE) ANTIGEN Routine 10/05/2013 18 :27 EDT E ANTIGEN Routine 10/05/2013 18:27 EDT ANTIBODY IDENTIFICATION Routine 10/06/19 14 17:39 EDT BLOOD BANK ADDITIONAL SPECIMEN Routine 10/05/2013 17:35 EDT POCT URINE DIPSTICK, CLINITEK STAT 10/05/2013 15:45 EDT DIFFERENTIAL STAT 10/05/2013 14:51 EDT PROTIME STAT 10/05/2013 14:51 EDT COMPLETE BLOOD COUNT STAT 10/05/2013 14:51 EDT COMPLETE BLOOD COUNT AND DIFFERENTIAL STAT 10/05/2013 14:51 EDT BUN STAT 10/05/2013 14:51 EDT LIPASE STAT 10/05/2013 14:51 EDT CREATININE STAT 10/05/2013 14:51 EDT HEPATIC FUNCTION PANEL (ALB,ALK PHOS,ALT,AST,DBIL,TOT MARVEL,TOT PROT) STAT 10/05/2013 14:51 EDT ELECTROLYTES STAT 10/05/2013 14:51 EDT TYPE AND SCREEN Routine 10/05/2013 14:40 EDT documented in this encounter Results * (ABNORMAL) DIFFERENTIAL (10/06/2013 6:22 EDT) Neutrophils 56.0 45.5 - 79.7 % [facility] Lymphocytes 30.0 15.0 - 46.8 % [facility] Monocytes 9.0 1.8 - 12.0 % [facility] Eosinophils 3.0 0.6 - 6.9 % [facility] Basophils 2.0(H) 0.2 - 1.4 % [facility] ABS Neutrophils 1.50(L) 2.20 - 8.85 K/cmm [facility] ABS Lymphs 0.80(L) 1.09 - 3.30 K/cmm [facility] ABS Monocytes 0.24 0.1 - 0.8 K/cmm [facility] ABS Eosinophils 0.08 0.03 - 0.61 K/cmm [facility] ABS Basophils 0.05 0.01 - 0.11 K/cmm [facility] RBC Morphology 1+ [facility] Comment: Anisocytosis 1+ Ovalocytes Type of Diff: Manual [facility] 10/06/2013 6:22 EDT 10/06/2013 7:15 EDT Haile Zuniga MD HEMATOLOGY & PF4 OR DERABLES Performing Organization Address [facility] [[email or web address]] de Phone Number [facility] [address] [place] [address] * (ABNORMAL) HEMAGRAM (10/06/2013 6:22 EDT) WBC 2.67(L) 4.0 - 10.4 K/cmm [facility] RBC 3.83(L) 4.36 - 5.78 M/cmm [facility] Hemoglobin 9.4(L) 13.8 - 17.3 gm/dl [facility] HCT 29.2(L) 39.5 - 50.2 % [facility] MCV 76(L) 81 - 95 fl [facility] MCH 24.7(L) 27.6 - 33.0 pg [facility] MCHC 32.4(L) 32.8 - 36.4 gm/dl [facility] PLT 102(L) 141 - 320 K/cmm [facility] RDW-CV 20.0(H) 11.8 - 14.1 % [facility] 10/06/2013 6:22 EDT 10/06/2013 7:15 EDT Haile Zuniga MD HEMATOLOGY & PF4 OR DERABLES Performing Organization Address [facility] Co de Phone Number [facility] [address] [place] [address] * CREATININE (10/06/2013 6:22 EDT) Creatinine 0.70 0.66 - 1.25 mg/dl [facility] GFR, Calculated >60 >60 ml/min/1.7 3m2 [facility] Blood specimen (specimen) 10/06/2013 6:22 EDT 10/06/2013 7:15 EDT Haile Zuniga MD CHEMISTRY & BLOOD G ORDERABLES Performing Organization Address [facility] [[email or web address]] de Phone Number [facility] [address] [place] [address] * BUN (10/06/2013 6:22 EDT) BUN 20 10 - 26 mg/dl [facility] Blood specimen (specimen) 10/06/2013 6:22 EDT 10/06/2013 7:15 EDT Haile Zuniga MD CHEMISTRY & BLOOD G ORDERABLES Performing Organization Address [facility] [[email or web address]] de Phone Number [facility] [address] [place] [address] * (ABNORMAL) ELECTROLYTES (10/06/2013 6:22 EDT) Sodium 141 136 - 145 mEq/L [facility] Potassium 4.1 3.5 - 5.0 mEq/L [facility] Chloride 106 96 - 110 mEq/L [facility] CO2 23(L) 24 - 32 mEq/L [facility] Blood specimen (specimen) 10/06/2013 6:22 EDT 10/06/2013 7:15 EDT Haile Zuniga MD CHEMISTRY & BLOOD G ORDERABLES Performing Organization Address [email or web address]] de Phone Number [facility] [address] [place] [address] * PROTIME (10/06/2013 6:22 EDT) Pro Time 11.9 9.5 - 12.3 secs [facility] I.N.R. 1.1 0.9 - 1.1 Ratio [facility] Comment: Moderate Intensity Coumadin INR = 2.0-3.0 Adjustments in anticoagulant therapy dose should be based upon the INR and NOT the Pro Time. Blood specimen (specimen) 10/06/2013 6:22 EDT 10/06/2013 7:15 EDT Haile Zuniga MD HEMATOLOGY & PF4 OR DERABLES Performing Organization Address [facility] Co de Phone Number [facility] [address] [place] [address] * BILIRUBIN, TOTAL (10/06/2013 6:22 EDT) Bilirubin, Total <0.5 <1.4 mg/dl [facility] Comment:Sample retested, res ult confirmed Blood specimen (specimen) 10/06/2013 6:22 EDT 10/06/2013 7:15 EDT Haile Zuniga MD CHEMISTRY & BLOOD G ORDERABLES Performing Organization Address [facility] de Phone Number [facility] [address] [place] [address] * ALKALINE PHOSPHATASE (10/06/2013 6:22 EDT) Total Alkaline Phosphatase 84 38 - 126 U/L [facility] Blood specimen (specimen) 10/06/2013 6:22 EDT 10/06/2013 7:15 EDT Haile Zuniga MD CHEMISTRY & BLOOD G ORDERABLES Performing Organization Address [facility] Co de Phone Number [facility] [address] [place] [address] * (ABNORMAL) AST (10/06/2013 6:22 EDT) AST 104(H) 15 - 46 U/L [facility] Comment:Sample retested, res ult confirmed Blood specimen (specimen) 10/06/2013 6:22 EDT 10/06/2013 7:15 EDT Haile Zuniga MD CHEMISTRY & BLOOD G ORDERABLES Performing Organization Address [facility] Co de Phone Number [facility] [address] [place] [address] * (ABNORMAL) ALT (10/06/2013 6:22 EDT) ALT 88(H) 21 - 72 U/L [facility] Blood specimen (specimen) 10/06/2013 6:22 EDT 10/06/2013 7:15 EDT Haile Zuniga MD CHEMISTRY & BLOOD G ORDERABLES Performing Organization Address [facility] de Phone Number [facility] [address] [place] [address] * SCREENING GLUCOSE (10/06/2013 6:22 EDT) Pathologist [facility] Glucose, Screening 92 70 - 100 mg/dl [facility] Blood specimen (specimen) 10/06/2013 6:22 EDT 10/06/2013 7:15 EDT Haile Zuniga MD CHEMISTRY & BLOOD G ORDERABLES Performing Organization Address [facility] Phone Number [facility] [address] [place] [address] * ANTIBODY IDENTIFICATION (10/05/2013 19:17 EDT) [facility] Antibody Identification Anti-E Anti-c (little) [facility] 10/05/2013 19:1 7 EDT Provider Unknown BLOOD BANK TESTS Performing Organization Address [facility] de Phone Number [facility] * PREPARE RED BLOOD CELLS (10/05/2013 18:42 EDT) [facility] Product Code E0382 -3 RED BLOOD CELLS, Leukocytes Reduced [facility] Donor Number [id number] [facility] Unit ABO A [facility] Unit Rh POS [facility] Cross Match Interp Compatible [facility] Unit Status Released From [employer] [facility] 10/05/2013 18:4 2 EDT Provider Unknown BLOOD BANK ORDERABLE S Performing Organization Address [facility]/ZIP Co de Phone Number [facility] * PREPARE RED BLOOD CELLS (10/05/2013 18:42 EDT) Product Code E0382 -3 RED BLOOD CELLS, Leukocytes Reduced [facility] Donor Number [id number] [facility] Unit ABO A [facility] Unit Rh POS [facility] Cross Match Interp Compatible [facility] Unit Status Released From [facility] BLOOD BANK 10/05/2013 18:4 2 EDT Provider Unknown MD BLOOD BANK ORDERABLE S [facility] * PREPARE RED BLOOD CELLS (10/05/2013 18:42 EDT) Product Code E0382 -3 RED BLOOD CELLS, Leukocytes Reduced [facility] Donor Number [id number] [facility] Unit ABO A [facility] Unit Rh POS [facility] Cross Match Interp Compatible [facility] Unit Status Released From [facility] BLOOD BANK 10/05/2013 18:4 2 EDT Provider Unknown BLOOD BANK ORDERABLE S [facility] BLOOD [facility] * PREPARE RED BLOOD CELLS (10/05/2013 18:42 EDT) Product Code E0382 -3 RED BLOOD CELLS, Leukocytes Reduced [facility] Donor Number [id number] [facility] Unit ABO A [facility] Unit Rh POS [facility] Cross Match Interp Compatible [facility] Unit Status Released From [facility] BLOOD BANK 10/05/2013 18:4 2 EDT Provider Unknown BLOOD BANK ORDERABLE S [facility] BLOOD [facility] * E ANTIGEN (10/05/2013 18:27 EDT) E Antigen Negative [facility] 10/05/2013 18:2 7 EDT Provider Unknown MD BLOOD BANK TESTS Performing Organization Address City/[facility]/ZIP Co de Phone Number [facility] * C ANTIGEN (LITTLE) (10/05/2013 18:27 EDT) c Antigen (little) Negative [facility] 10/05/2013 18:2 7 EDT Provider Unknown MD BLOOD BANK TESTS Performing Organization Address [facility] Co de Phone Number [facility] * ANTIBODY IDENTIFICATION (10/05/2013 17:39 EDT) Antibody Identification Anti-E Anti-c (joseph) [facility] BLOOD BANK 10/05/2013 17:3 9 EDT Provider Unknown MD BLOOD BANK TESTS Performing Organization Address [facility] Co de Phone Number [facility] * BLOOD BANK ADDITIONAL SPECIMEN (10/05/2013 17:35 EDT) ABO A [facility] Rh Factor Positive [facility] 10/05/2013 17:3 5 EDT Provider Unknown MD BLOOD BANK TESTS Performing Organization Address City/[facility]/ZIP Co de Phone Number [facility] * POCT URINE DIPSTICK (10/05/2013 15:45 EDT) Color YELLOW [facility] Clarity, UA Clear [facility] Glucose Neg Neg [facility] Bilirubin Neg Neg [facility] Ketones Neg Neg [facility] Specific Rogers 1.025 1.001 - 1.035 [facility] Blood Neg Neg [facility] pH 5.5 4.6 - 8.0 [facility] Protein Neg Neg [facility] Urobilinogen 0.2 0.2 - 1.0 E.U./dl [facility] Nitrite Neg Neg [facility] Leuk Esterase Neg Neg [facility] sparmaker ID [id number] [facility] Comment:Test performed at [facility] Urine specimen (specimen) 10/05/2013 15:45 EDT 10/05/2013 15:54 EDT Deedee Silver PA-C POINT OF CARE TE ST ORDERABLES Performing Organization Address [facility] Co de Phone Number [facility] [address] [place] [address] * (ABNORMAL) DIFFERENTIAL (10/05/2013 14:51 EDT) % Neutrophils 57.1 45.5 - 79.7 % [facility] % Lymphocytes 26.4 15.0 - 46.8 % [facility] % Monocytes 12.9(H) 1.8 - 12.0 % [facility] % Eosinophils 2.9 0.6 - 6.9 % [facility] % Basophils 0.7 0.2 - 1.4 % [facility] ABS Neutrophils 1.84(L) 2.20 - 8.85 K/cmm [facility] ABS Lymphs 0.85(L) 1.09 - 3.30 K/cmm [facility] ABS Monocytes 0.41 0.1 - 0.8 K/cmm [facility] ABS Eosinophils 0.09 0.03 - 0.61 K/cmm [facility] ABS Basophils 0.02 0.01 - 0.11 K/cmm [facility] Type of Diff: Automated [facility] 10/05/2013 14:5 1 EDT 10/05/2013 15:06 EDT Deedee Silver PA-C HEMATOLOGY & PF4 ORDERABLES Performing Organization Address [facility] [[email or web address]] de Phone Number [facility] [address] [place] [address] * (ABNORMAL) HEMAGRAM (10/05/2013 14:51 EDT) WBC 3.21(L) 4.0 - 10.4 K/cmm [facility] RBC 4.34(L) 4.36 - 5.78 M/cmm [facility] Hemoglobin 10.4(L) 13.8 - 17.3 gm/dl [facility] HCT 33.3(L) 39.5 - 50.2 % [facility] MCV 77(L) 81 - 95 fl [facility] MCH 24.0(L) 27.6 - 33.0 pg [facility] MCHC 31.3(L) 32.8 - 36.4 gm/dl [facility] PLT 113(L) 141 - 320 K/cmm [facility] RDW-CV 20.6(H) 11.8 - 14.1 % [facility] 10/05/2013 14:5 1 EDT 10/05/2013 15:06 EDT Deedee Silver PA-C HEMATOLOGY & PF4 ORDERABLES Performing Organization Address [facility] Co de Phone Number [facility] [address] [place] [address] * PROTIME (10/05/2013 14:51 EDT) Pro Time 11.9 9.5 - 12.3 secs [facility] I.N.R. 1.1 0.9 - 1.1 Ratio [facility] Comment: Moderate Intensity Coumadin INR = 2.0-3.0 Adjustments in anticoagulant therapy dose should be based upon the INR and NOT the Pro Time. Blood specimen (specimen) 10/05/2013 14:51 EDT 10/05/2013 15:06 EDT Deedee Silver PA-C HEMATOLOGY & PF4 ORDERABLES Performing Organization Address [facility]/ZIP Co de Phone Number [facility] [address] [place] [address] * LIPASE (10/05/2013 14:51 EDT) Pathologist [facility] Lipase 227 0 - 250 U/L [facility] Blood specimen (specimen) 10/05/2013 14:51 EDT 10/05/2013 15:06 EDT Deedee Silver PA-C CHEMISTRY & BLOO D GAS ORDERABLES Performing Organization Address [facility] Co de Phone Number [facility] [address] [place] [address] * (ABNORMAL) HEPATIC FUNCTION PANEL (ALB,ALK PHOS,ALT,AST,DBIL,TOT MARVEL,TOT PROT) (10/05/2013 14:51 EDT) [facility] Albumin 4.0 3.4 - 4.9 g/dl [facility] Total Protein 7.9 6.5 - 8.3 g/dl [facility] Total Alkaline Phosphatase 100 38 - 126 U/L [facility] ALT 103(H) 21 - 72 U/L [facility] AST 158(H) 15 - 46 U/L [facility] Unconjugated Bilirubin 0.8 0.0 - 1.1 mg/dl [facility] Conjugated Bilirubin 0.0 0.0 - 0.3 mg/dl [facility] Bilirubin, Total 1.1 <1.4 mg/dl [facility] Blood specimen (specimen) 10/05/2013 14:51 EDT 10/05/2013 15:06 EDT Deedee Silver PA-C CHEMISTRY & BLOO D GAS ORDERABLES Performing Organization Address [facility] Co de Phone Number [facility] [address] [place] [address] * CREATININE (10/05/2013 14:51 EDT) Pathologist [facility] Creatinine 0.70 0.66 - 1.25 mg/dl [facility] GFR, Calculated >60 >60 ml/min/1.7 3m2 [facility] Blood specimen (specimen) 10/05/2013 14:51 EDT 10/05/2013 15:06 EDT Deedee Silver PA-C CHEMISTRY & BLOO D GAS ORDERABLES Performing Organization Address [facility] Co de Phone Number [facility] [address] [place] [address] * BUN (10/05/2013 14:51 EDT) BUN 24 10 - 26 mg/dl [facility] Blood specimen (specimen) 10/05/2013 14:51 EDT 10/05/2013 15:06 EDT Deedee Silver PA-C CHEMISTRY & BLOO D GAS ORDERABLES Performing Organization Address [facility] Phone Number [facility] [address] [place] [address] * (ABNORMAL) ELECTROLYTES (10/05/2013 14:51 EDT) Sodium 140 136 - 145 mEq/L [facility] Potassium 4.5 3.5 - 5.0 mEq/L [facility] Chloride 106 96 - 110 mEq/L [facility] CO2 22(L) 24 - 32 mEq/L [facility] Blood specimen (specimen) 10/05/2013 14:51 EDT 10/05/2013 15:06 EDT Deedee Silver PA-C CHEMISTRY & BLOO D GAS ORDERABLES Performing Organization Address [email or web address] de Phone Number [facility] [address] [place] [address] * TYPE AND SCREEN (10/05/2013 14:40 EDT) ABO A [facility] Rh Factor Positive [facility] Antibody Screen Positive [facility] Comment:sample expires 2013 at 23:59. 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 Thrombocytopenia (HCC-CMS) Thrombocytopenia, unspecified documented in this encounter Administered Medications Inactive Administered Medications - up to 3 most recent administrations Medication Order MAR Action Action Date Dose Rate Site nadolol (CORGARD) tablet 20 mg 20 mg, oral, DAILY, First dose on Tue10/06/13 at 0900, Until Discontinued, Routine Given 10/06/2013 8:37 EDT 20 mg pantoprazole (PROTONIX) tablet 40 mg 40 mg, oral, 2 TIMES DAILY, First dose on Tue10/05/13 at 2115, Until Discontinued, STAT Given 10/06/2013 8:37 EDT 40 mg Given 10/05/2013 21:34 EDT 40 mg sodium chloride 0.9 % BOLUS 1,000 mL 1,000 mL, intravenous, Once (Without Time Specified), 1 dose, Starting on Tue10/05/13 at 1445, Until Tue10/05/13 at 1534, STAT Given 10/05/2013 15:05 EDT 1,000 mL documented in this encounter Discontinued Medications Medication Sig Discontinue Reason Start Date End Da te acetaminophen-codeine (TYLENOL #3) 300-30 mg per tablet Take 1 Tab by mouth as needed for Pain. 10/05/2013 Norfloxacin (NOROXIN) 400 mg tablet Take 1 Tab by mouth BEFORE BREAKFAST & DINNER. 06/17/2013 10/05/2013 docusate sodium (COLACE) 100 mg capsule Take 1 Cap by mouth 2 times daily as needed for Constipation. 10/06/2013 10/06/2013 documented as of this encounter Historical Medications * This list may reflect changes made after this encounter. Medication Sig Dispensed Refills Start Date End Date pantoprazole (PROTONIX) 40 mg tablet Take 40 mg by mouth daily. 01/12/2014 added in this encounter Active and Recently Administered Medications Times are shown in EDT. Scheduled Medication Order 10/04/2013 10/05/2013 10/06/2013 nadolol (CORGARD) tablet 20 mg (CANCELED) 20 mg, oral, DAILY, First dose on 10/06/13 at 0900, Until Discontinued, Routine 0837 (Given - Provid er: Barbara Read) pantoprazole (PROTONIX) tablet 40 mg (CANCELED) 40 mg, oral, 2 TIMES DAILY, First dose on Tue10/05/13 at 2115, Until Discontinued, STAT 2134 (Given - Provider: Shantal Beverly, MELY) 0837 (Given - Provider: Barbara Read) sodium chloride 0.9 % BOLUS 1,000 mL (COMPLETED) 1,000 mL, intravenous, Once (Without Time Specified), 1 dose, Starting on Tue10/05/13 at 1445, Until Tue10/05/13 at 1534, STAT 1505 (Given - Provider: Hank Rodas)1534 (Completed - Provider: Hong Brody RN) PRN Medication Order 10/04/2013 10/05/2013 10/06/2013 docusate sodium (COLACE) capsule 100 mg 100 mg, oral, 2 TIMES DAILY PRN, Starting on Tue10/05/13 at 2113, Until 10/06/13 at 1848, Constipation, STAT documented in this encounter Orders Medications Ordered That Jamison ht Not Have Been Administered Count Last Ordered Date First Ordered Date acetaminophen (TYLENOL) tablet 650 mg 1 bisacodyl (DULCOLAX) EC tablet 10 mg 1 09/10 bisacodyl (DULCOLAX) suppository 10 mg 1 docusate sodium (COLACE) capsule 100 mg 1 0 10/05/2013 pneumococcal vaccine (PPV23) (PNEUMOVAX) injection 0.5 mL 1 10/05/2013 senna (SENOKOT) tablet 2 Tab 1 10/05/2013 Diet Count Last Ordered Date First Orde red Date DISCHARGE DIET 1 10/06/2013 Nursing Count Last Ordered Date First Orde red Date ACTIVITY INSTRUCTIONS 1 10/06/2013 BATHING INSTRUCTIONS 1 10/06/2013 DRIVING INSTRUCTIONS 1 10/06/2013 CONTRAINDICATION TO ANTICOAG ULATION THERAPY 1 10/05/2013 INSERT PERIPHERAL IV 1 10/05/2013 ORTHOSTATIC VITAL SIGNS 1 10/05/2013 Admission Count Last Ordered Date First Orde red Date STATUS: ED REQUEST FOR OBSER VATION SERVICES 1 10/05/2013 STATUS: INPATIENT ACUTE ADMISSION 1 014 Transfer Count Last Ordered Date First Orde red Date NOTIFY PPS OF DISCHARGE COMPLETE 1 10/07/19 14 PPS NOTIFICATION OF PATIENT ARRIVAL ON UNIT 1 10/05/2013 Discharge Count Last Ordered Date First Orde red Date DISCHARGE PATIENT 1 10/06/2013 Legal Count Last Ordered Date First Orde red Date MISCELLANEOUS DISCHARGE INSTRUCTIONS 09/10 documented in this encounter Care Teams Du[employer]ator Punch Set Up Operator Relationship Specialty Start Date End Date Kamala Rosado MD [address] [id number] PCP - General 10/05/13 10/19/15 documented as of this encounter
--- OUTSIDE RECORDS SUMMARY | 2023-12-21 12:10 | XMS_ITS | Encounter Summary ---
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 Portal hypertensive gastropathy (HCC-CMS) GI bleed Abdiaziz Cruz MD [address] [place] [address] [facility] [address] [place] [address] Referral ID Status Reason Start Date Expiration Date V isits Requested Visits Authorized [id number] Closed Specialty Services Required 01/12/2014 1 1 Question Answer Reason for Request: f/u portal gastropathy GI bleed * Follow Up (3 - 10 Business Days) - Closed Specialty Diagnoses / Procedures Referred By [facility] t Referred To Contact Diagnoses 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 GI bleed Portal hypertensive gastropathy (HCC-CMS) Pancytopenia (HCC-CMS) Abdiaziz Cruz MD [address] [place] [address] Referral ID Status Reason Start Date Expiration Date V isits Requested Visits Authorized [id number] Closed Continuity of Care 01/12/2014 1 1 Question Answer Reason for Request: f/u hospitalization GI Bleed Comments Please check HCV viral load in addition to other labs. Reason for Visit * Reason Comments Rectal Bleeding pt reports rectal bl eeding since last night, many stools, black in nature, sob this am, headache since yesterday Encounter Details Date Type Department Care Team (Late st Contact Info) Description 01/08/2014 17:24 EDT - 01/12/2014 13:49 EDT Hospital Encounter [facility] General Medicine Unit [address] [place] [address] Zac Morillo MD [address] [place] [address] Karrie Rose MD [address] [facility], Level [address] [place] [id number] Joe Do MD [address] [phone] GI bleed (Primary Dx); 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; Portal hypertensive gastropathy; Pancytopenia (CMS-HCC) (HCC-[facility]) Discharge Disposition: Home or Self Care Social [...] Sign Reading Time Taken Comments Blood Pressure 107/60 01/12/2014 1000 EDT Pulse 66 01/12/2014 1000 EDT Temperature 36.9 ??C (98.4 ??F) 01/12/2014 1000 EDT Respiratory Rate 20 01/12/2014 1000 EDT Oxygen Saturation 96% 01/12/2014 1000 EDT Inhaled Oxygen Concentration - - Weight 89.4 kg (197 lb) 01/08/20141954 EDT Height 162.6 cm (5' 4.02) 01/08/20141954 EDT Body Mass Index 33.8 01/08/20141954 EDT documented in this encounter Functional Status [...] Yes 01/08/2014 documented as of this encounter Discharge Summaries * Joe Do MD - 01/09/2014 1335 EDT Discharge Summary Attending Physician: Joe Do MD Date of Admission: 01/08/2014 Date of Discharge: 01/12/2014 Disposition: Home Reason for Admission: Upper GI Bleed Hospital Problems: Active Problems: 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 male w/ PMHx significant for HCV cirrhosis complicated by esophageal varices (s/p banding 2008), multiple prior GI bleeds (last admission 10/05/2013, s/p negative tagged RBC scan 06/2013), EtOH abuse, and chronic thrombocytopenia presented to ED with approximately 12-24 hoursof malaise, lightheadedness, shortness of breath and copious black tarry stools. Hgb was 12.1 with a normal INR on admission with guaiac positive stool. Pt reported he was unable to take his home nadolol or protonix due to losing his insurance. GI Bleed: NG lavage was positive for blood and EGD showed diminutive varices at GE junction, portalgastropathy, normal duodenum. Pt started on coreg for portal gastropathy and continued on protonix 40mg BID. Continued to have melena and decreasing Hgb (12.1 -> 8.9 -> 8.6 -> 8.2). Underwent colonoscopy which was also normal. Hgb stabilized and melena ceased after the colonoscopy. Cirrhosis: Pt noted to have good synthetic function (INR 1.2) and a bedside pocket ultrasound exam was negative for ascites. Pancytopenia: The patient developed a new leukopenia and worseing of his thrombocytopenia. Hematology was consulted, and B12, MMA, and HIV were sent but still pending at time of discharge. Heme felt that his cytopenias were likely all reflective of his liver disease and suggested referral to hepatology to again try to treat his ongoing hepatitis C infection. Clinical Issues Needing Follow-up: 1. Portal Gastropathy: Pt has 3 month supply of nadolol at home that he will take. Instructed to call GI clinic if he ever runs out and is unable to afford more, however his new insurance should eliminate this issue. Hepatology follow up, as well as HCV viral load were added on for PCP visit. 2. Cirrhosis 2/2 HCV: Hepatology follow up and HCV viral load added for PCP visit. 3. Chronic Anemia: f/u on B12, MMA, and HIV results. Protonix stopped for possible contribution to thrombocytopenia in setting of non-ulcerative GI process. GI thought that he should undergo a capsule endoscopy if he again has bleeding. Results Pending at Discharge: Test results still pending from this admission Procedure Component Value Units Date/Time Methylmalonic Acid [[id number]] Collected: 01/12/14916 Lab Status: In process Updated: 01/12/14924 Specimen Information: Blood Vitamin B12 [[id number]] Collected: 01/12/14916 Lab Status: In process Updated: 01/12/14924 Specimen Information: Blood Elevated Glucose [[id number]] Collected: 01/08/14935 Lab Status: In process Updated: 01/08/14 1008 Discharge Medications: START taking these medications Sig cefpodoxime 200 mg tablet Commonly known as: VANTIN 200 mg, oral, EVERY 12 HOURS CONTINUE taking these medications Sig FOLIC ACID ORAL 5 mg, oral, DAILY IRON ORAL oral nadolol 20 mg tablet Commonly known as: CORGARD 20 mg, oral, DAILY STOP taking these medications pantoprazole 40 mg tablet Commonly known as: PROTONIX Allergies: Ambien Appointments Scheduled with Ad[facility] Bergeron in the Next 3 Months: These [facility] appointments have already been scheduled Mar 15, 2014 13:00 Established Patient Visit with [facility] (--) [address] [facility] [address] Follow-Up Appointments and Procedures Recommended to Patient: Follow-up appointments and procedures Amb Consult/Follow Up Gastroenterology Reason for Request: f/u portal gastropathy GI bleed Authorizing Provider: Abdiaziz Cruz MD Amb Consult/Follow Up Primary Care Physician Please check HCV viral load in addition to other labs. Reason for Request: f/u hospitalization GI Bleed Authorizing Provider: Abdiaziz Cruz MD Follow-Up Labs and Tests: Follow-up labs and tests HCV RNA Detect Quant Complete by: Jan 16, 2014 (Approximate) Authorizing Provider: Abdiaziz Cruz MD Joshua Stopak, MD--PGY1 Pager # [phone] 01/12/2014 12:59 Joe Do MD (I spent > 30 mins - all FTF and coordination of care) documented in this encounter Medications at Time of Discharge Medication Sig Dispensed Refills Start Date End Date cefpodoxime (VANTIN) 200 mg tablet Take 1 Tab by mouth every 12 hours for 3 days. 6 Tab 0 01/12/2014 01/15/2014 FERROUS FUMARATE (IRON ORAL)Indications:Chronic hepatitis C without mention of hepatic coma,Cirrhosis (HCC-CMS) Take by mouth. 1 FOLIC ACID ORALIndications:Chronic hepatitis C without mention of hepatic coma,Cirrhosis (HCC-CMS) Take 5 mg by mouth daily. 04/30/2014 nadolol (CORGARD) 20 mg tabletIndications:Chronic hepatitis C without mention of hepatic coma,Cirrhosis (HCC-CMS) Take 20 mg by mouth daily. 01/29/2014 documented as of this encounter Ordered Prescriptions Prescription Sig Dispensed Refills Start Date End Da te cefpodoxime (VANTIN) 200 mg tablet Take 1 Tab by mouth every 12 hours for 3 days. 6 Tab 0 01/12/2014 01/15/2014 documented in this encounter Discharge Disposition Disposition Code Departure Means Destination Home or Self Care documented in this encounter Progress Notes * Elly Ricci RN - 01/12/2014 1304 EDT Data: Pt anxious to go home today. No c/o pain, s/s of bleeding. Pt has coming to take him home, discharge instructions provided. Pt is alert and oriented x3. Pt verbalized understanding. Action: Removed 2 PIV. Response: Pt home to go home with . Elly Ricci RN 01/12/2014 13:04 * Joe Do MD - 01/11/2014 1015 EDT Medicine Progress Note Admit Date: 01/08/2014 17:24 Date of Service: 01/11/2014 24 Hour Events/Subjective: RYAN o/n. Tolerated colonoscopy well yesterday. No BM since scope. Denies abdominal pain, N/V/D, SOB, or CP . Review of Systems: as above Medications: Reviewed and documented in the medical record: No changes Objective: VS: Temp: [36.8 ??C (98.2 ??F)-37 ??C (98.6 ??F)] , Pulse: [53-66] , Resp: [16-61] , BP: (84-103)/(47-57) , SpO2: [94 %-97 %] I&O: Intake/Output Summary (Last 24 hours) at 01/11/14 1015 Last data filed at 01/11/14 0955 Gross per 24 hour Intake 400 ml Output 150 ml Net 250 ml Physical Exam: Gen: AOx3, NAD HEENT: NCAT, EOMI, PERRLA, MMM Neck: Supple, trachea midline, no JVD CV: RRR, normal S1/S2, without MGR Pulm: CTAB without wheezes or rales Abd: tense, distended but NT, -HSM, +BS Ext: WWP, pulses 2+ bilaterally Neuro: AOx3, CN II-XII grossly intact Psych: AOx3, thought content appropriate, speech non-pressured Labs: CBC: Recent Labs 01/10/14 1639 01/10/14 2130 01/11/14 0542 WBC 1.65* 1.81* 1.81* RBC 2.64* 2.67* 2.72* HGB 7.7* 8.1* 7.9* HCT 22.9* 23.0* 23.3* MCV 87 86 86 MCH 29.2 30.2 29.1 MCHC 33.8 35.0 33.9 PLT 97* 96* 99* BMP: Recent Labs 01/09/14 0904 01/10/14 0539 01/11/14 0542 NA 140 144 140 K 3.9 3.8 3.6 CL 112* 111* 110 CO2 23* 22* 22* BUN 28* 20 16 CREATININE 0.86 0.90 1.00 Imaging: EGD (01/08/2014): diminutive varices at GE junction, portal gastropathy, normal duodenum. Bedside Pocket Ultrasound (01/09/2014): negative for ascites, liver parenchyma c/w cirrhosis w/ portal triads. Colonoscopy (01/10/2014): No concerning area of bleeding noted, however there was inappropriate amounts of bleeding in response to normal scope trauma. Assessment: 58 y.o. 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 Initial EGD showed only portalgastropathy; however, he continued to have melena and worsening anemia so he underwent colonoscopy which was negative. Plan: Acute blood loss anemia 2/2 portal gastropathy: Likely resolving with stable Hgb this AM. - GI consulted, appreciate recs and assistance - Change CBC BID - Holding pantoprazole as no ulcerative source and pancytopenia - CTX 1g day 4/7 for prophylaxis - Coreg 6.25 PO BID - Zofran PRN nausea Chronic Anemia 2/2 HCV Cirrhosis - Heme consult, appreciate recs - Will hold protonix (d/w Dr. Marino from GI) - B12 and MMA pending - HIV Ab pending - Continue B1, B6, and B12 PO supplementation Headache: Well controlled with Tylenol (reduced dose for cirrhosis) - Can add tramadol if needed PPX: Contraindicated due to bleed Code status: DNR/DNI Dispo: Eventually home with Hepatology f/u. Consults: LA NENA Cruz MD--PGY1 Pager # [phone] 01/11/2014 10:15 Attending attestation: I have seen and examined the patient and agree with findings and plans as outlined in the resident's note above. Decrease phlebotomy, hold PPI, f/u on B12 and HIV ab, and solicit hematology input regarding cytopenias. Will check WBC differential (I IP added to am labs). Pill enteroscopy prior to consideration of TIPS if bleeding recurs. Joe Do MD * Margareth Lenz RN - 01/10/2014 1518 EDT Met with patient to discuss problem with obtaining his medications. He gets his meds at [facility], thru their medication program but some of those prescribed for him are not available at reduced rates. He had a medication policy but could not continue to afford it. Provided patient with information on the [facility] Health Information Program to assist with his meds post discharge. * Joe Do MD - 01/10/2014 0817 EDT Medicine Progress Note Admit Date: 01/08/2014 17:24 Date of Service: 01/10/2014 24 Hour Events/Subjective: 58 y.o. male admitted o/n for GI bleed. Pt to colonoscopy this AM. Now resting in bed, denies abdominal pain, N/V/D, SOB, or CP . Review of Systems: as above Medications: Reviewed and documented in the medical record: No changes Objective: VS: Temp: [36 ??C (96.8 ??F)-37.1 ??C (98.8 ??F)] , Pulse: [61-74] , Resp: [15-18] , BP: (86-128)/(44-85) , SpO2: [96 %-99 %] I&O: Intake/Output Summary (Last 24 hours) at 01/10/14 0817 Last data filed at 01/10/14 0433 Gross per 24 hour Intake 5110 ml Output 575 ml Net 4535 ml Physical Exam: Gen: AOx3, NAD HEENT: NCAT, EOMI, PERRLA, MMM Neck: Supple, trachea midline, no JVD CV: RRR, normal S1/S2, without MGR Pulm: CTAB without wheezes or rales Abd: tense, distended but NT, -HSM, +BS Ext: WWP, pulses 2+ bilaterally Neuro: AOx3, CN II-XII grossly intact Psych: AOx3, thought content appropriate, speech non-pressured Labs: CBC: Recent Labs 01/08/14 0936 01/09/14 1652 01/09/14 2134 01/10/14 0539 WBC 7.42 < > 3.45* 3.98* 2.61* RBC 4.15* < > 2.85* 3.17* 2.94* HGB 12.1* < > 8.2* 9.2* 8.6* HCT 35.9* < > 24.7* 27.3* 25.4* MCV 87 < > 87 86 86 MCH 29.1 < > 28.9 29.0 29.1 MCHC 33.7 < > 33.3 33.7 33.6 PLT 281 < > 120* 146 121* NEUTROABS 4.85 -- -- -- -- < > = values in this interval not displayed. BMP: Recent Labs 01/08/14 0936 01/09/14 0904 01/10/14 0539 NA 142 140 144 K 5.1* 3.9 3.8 CL 108 112* 111* CO2 24 23* 22* BUN 45* 28* 20 CREATININE 0.90 0.86 0.90 MG 1.8 -- -- LABALBU 3.4 -- -- Coags: Recent Labs 01/08/14 0936 PROTIME 12.9* INR 1.2* LFT: Recent Labs 01/08/14 0936 TBIL 0.9 ALKPHOS 77 AST 84* ALT 82* Imaging: EGD (01/08/2014): diminutive varices at GE junction, portal gastropathy, normal duodenum. Bedside Pocket Ultrasound (01/09/2014): negative for ascites, liver parenchyma c/w cirrhosis w/ portal triads. Colonoscopy (01/10/2014): No concerning area of bleeding noted, however there was inappropriate amounts of bleeding in response to normal scope trauma. Assessment: 58 y.o. 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 Initial EGD showed only portalgastropathy; however, he continued to have melena and worsening anemia so he underwent colonoscopy which was negative. Plan: GI Bleed: s/p colonoscopy today - GI consulted, appreciate recs and assistance - Continue CBC Q8h, may space out pending Hgb stability in setting of normal colonoscopy results - Pantoprazole 40mg IV BID - CTX 1g day 3/7 for prophylaxis - Zofran PRN nausea Cirrhosis: Complicated by esophageal varices status post banding but without ascites and with synthetic function (INR 1.2). - Coreg 6.25 PO BID Headache - Tylenol (reduced dose for cirrhosis) - Will add tramadol if needed PPX: Contraindicated due to bleed Code status: DNR/DNI Dispo: Eventually home with Hepatology f/u. Consults: GI Abdiaziz Cruz MD--PGY1 Pager # [phone] 01/10/2014 8:17 Attending attestation: I have seen and examined the patient and agree with findings and plans as outlined in the resident's note above. Will try to get records from [facility] regarding his prior eval and consider repeat pill enteroscopy if bleeding persists. Joe Do MD * Sherice Gray - 01/09/2014 1412 EDT Initial Case Management/Social Work Assessment and Discharge Plan /Readmission Risk Assessment Physician working diagnosis: Melena 58 year old male w/ PMHx significant for HCV cirrhosis complicated by esophageal varices (s/p banding 2008), multiple prior GI bleeds (last admission 10/05/2013, s/p negative tagged RBC scan 06/2013), EtOH abuse, and chronic thrombocytopenia admitted for recurrent GI bleed. Patient (or designee) understanding of admission: The patient understands the reason for admission. Patient Contact Information: Alonzo Urbina . MEDICAL AND COMMUNITY SERVICES: Primary Care Provider: Kamala Rosado MD Specialists seen on a consistent basis: None Skilled home care services: None DME Provider: None Pharmacy: [facility] in [place], [place]. LIVING ARRANGEMENTS AND ACCESSIBILITY ISSUES: The patient lives in a one story house in [place], [place]. Are there any home access issues? No What in home social supports are available to the patient? Fiinna Gatica . ADVANCED DIRECTIVES, POA &/or COLST IN PLACE: Yes. The patient has an AD. His spouse is listed as the DPOA. CULTURAL, ANABAPTISM and/or LANGUAGE factors affecting health care/discharge planning: Listed as none. The patient declined a visit from the spiritual care office. FUNCTIONAL & PSYCHOSOCIAL INFORMATION: The patient is independent with ADL's at baseline. MEDICAL INSURANCE IN PLACE: Medicare and [facility] financial services for: 100% PAP for 6 months DISCHARGE RISK ASSESSMENT: History of mental illness Total # selected above: Score of 1 - 2: This patient is at LOW RISK for re-hospitalization. INITIAL TRANSITION PLAN: Discharge home when medically ready Transportation from hospital in place? Yes. The patient's fiance will transport the patient home. Post hospitalization Plan: Return to independent living. New DME Requirements: No Initial plan discussed with: The patient The CM met the patient. No home health needs identified. The CM will follow the patient to discharge. Sherice Gray RN BSN [phone] 01/09/2014 14:12 covering high risk case manager * Joe Do MD - 01/09/2014 1015 EDT Medicine Progress Note Admit Date: 01/08/2014 15:50 Date of Service: 01/09/2014 24 Hour Events/Subjective: 58 y.o. male admitted o/n for GI bleed. Pt reports continued melena/bloody stools and had continuedHgb drop. He denies CP, SOB, abdominal pain, or vomiting or diarrhea. Continued [place] and nausea as well. Pt is emotionally distressed regarding his financial inability to obtain Rx at home. Review of Systems: as above Medications: Reviewed and documented in the medical record: No changes Objective: VS: Temp: [36.8 ??C (98.2 ??F)-37.7 ??C (99.9 ??F)] , Pulse: [71-78] , Resp: [12-19] , BP: (88-134)/(46-83) , SpO2: [93 %-100 %] I&O: Intake/Output Summary (Last 24 hours) at 01/09/14 1015 Last data filed at 01/09/14 0800 Gross per 24 hour Intake 170 ml Output 1100 ml Net -930 ml Physical Exam: Gen: AOx3, NAD HEENT: NCAT, EOMI, PERRLA, MMM Neck: Supple, trachea midline, no JVD CV: RRR, normal S1/S2, without MGR Pulm: CTAB without wheezes or rales Abd: tense, distended but NT, -HSM, +BS Ext: WWP, pulses 2+ bilaterally Neuro: AOx3, CN II-XII grossly intact Psych: AOx3, thought content appropriate, speech non-pressured Labs: CBC: Recent Labs 01/08/1436 01/08/14212701/09/14 0202 01/09/14 0904 WBC 7.42 5.95 5.27 3.78* RBC 4.15* 3.10* 2.99* 2.84* HGB 12.1* 8.9* 8.6* 8.2* HCT 35.9* 26.6* 25.7* 24.3* MCV 87 86 86 86 MCH 29.1 28.9 28.9 28.9 MCHC 33.7 33.6 33.6 33.8 PLT 281 153 150 130* NEUTROABS 4.85 -- -- -- BMP: Recent Labs 01/08/1436 01/09/14 0904 NA 142 140 K 5.1* 3.9 CL 108 112* CO2 24 23* BUN 45* 28* CREATININE 0.90 0.86 MG 1.8 -- LABALBU 3.4 -- Coags: Recent Labs 01/08/14 0936 PROTIME 12.9* INR 1.2* LFT: Recent Labs 01/08/14 0936 TBIL 0.9 ALKPHOS 77 AST 84* ALT 82* New Imaging: EGD: diminutive varices at GE junction, portal gastropathy, normal duodenum. Bedside Pocket Ultrasound: negative for ascites, liver parenchyma c/w cirrhosis w/ portal triads. Assessment: 58 y.o. 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 Plan: GI Bleed: Hgb continues to drop (although at a slower rate now) with continued melena. - GI consulted, appreciate recs and assistance - CBC Q8h for now - Pantoprazole 40mg IV BID - CTX 1g day 05/18 for prophylaxis - No indication for octreotide at this time - Zofran PRN nausea - ADAT Cirrhosis: Complicated by esophageal varices status post banding but without ascites and with synthetic function (INR 1.2). - Coreg 6.25 PO BID - Vit K 5mg PO x1 today Headache - Tylenol (reduced dose for cirrhosis) - Will add tramadol if needed PPX: Contraindicated due to bleed Code status: DNR/DNI Dispo: Eventually home with Hepatology f/u. Consults: GI Abdiaziz Cruz MD--PGY1 Pager # [phone] 01/09/2014 10:36 Attending attestation: I have seen and examined the patient and agree with findings and plans as outlined in the resident's note above. Very frustrated about lack of definitive Dx/Rx and is still passing black and blood tinged stools. Cont to monitor VSs and Hgb, Rx a dose of Vit K (which may or may not help). Will cont PPI and BB asper GI. GI to speak with Dr Heaton about other options - if were certain that his bleeding is related to portal gastropathy, TIPS may be a consideration. Will contact [facility] to obtain records of his prior evaluation. Joe Do MD documented in this encounter H&P Notes * Kam Alejandro MD - 01/10/2014 0751 EDT Endoscopy Sedation for Procedure History & Physical Date: 01/10/2014 Time: 7:51 Location: [facility] Planned Procedure: Colonoscopy Chief Complaint/Indications for Procedure: bleeding (occult, unclear source) History Previous Complication with Sedation and/or Anesthesia? No Allergies: Allergies Allergen Reactions ??? Ambien [Zolpidem] Sleep-driving Current Medications: Current Facility-Administered Medications Medication Route Frequency ??? acetaminophen (TYLENOL) tablet 500 mg oral Q6H PRN ??? carvedilol (COREG) tablet 6.25 mg oral BID (BREAKFAST/DINNER) ??? cefTRIAXone (ROCEPHIN) 1,000 mg in sodium chloride 0.9 % 50 mL IVPB intravenous DAILY ??? folic acid (FOLVITE) tablet 1 mg oral DAILY ??? ondansetron (PF) (ZOFRAN) injection 4 mg intravenous Q4H PRN ??? pantoprazole (PROTONIX) injection 40 mg intravenous BID Past Medical History: Past Medical History Diagnosis Date ??? Anemia ??? Depression ??? Chronic kidney disease ??? Hepatitis C ??? Cirrhosis of liver ??? Esophageal varices ??? Chronic back pain ??? Leg numbness ??? Colon polyp ??? Mental disorder Social History: Past Surgical History Procedure Laterality Date ??? Esophageal varice ligation 2008 or 2009 ??? Hernia repair hiatal hernia ??? Back surgery 1974, 1981 ??? Shoulder surgery 20 years ago History Substance Use Topics ??? Smoking status: Never Smoker ??? Smokeless tobacco: Never Used ??? Alcohol Use: No Family History: Family History Problem Relation Age of Onset ??? Cancer Mother ??? Breast Cancer Mother ??? Alcohol Abuse Father ??? Cancer Father ??? Diabetes Father ??? Cancer Sister ??? Crohn's Disease Sister ??? Diabetes Sister ??? Cancer Brother ??? Anesth Problems Brother ??? Cancer Sister ??? Anesth Problems Sister Review of Systems as pertinent: Physical Exam Vital Signs: BP 124/73 Pulse 68 Temp(Src) 36.8 ??C (98.2 ??F) (Tympanic) Resp 16 Ht 162.6 cm (64.02) Wt 89.359 kg (197 lb) BMI 33.8 kg/m2 SpO2 99% Heart Examination: Cardiac Regularity: Regular Respiratory Examination: Respiratory Pattern: Regular Breath Sounds Right: Clear Breath Sounds Left: Clear Abdominal Examination: Soft, non-tender, bowel sounds normal, no masses, no organomegaly Additional physical exam related to the proposed procedure, patient activity, disease state and treatment as pertinent: Assessment Previous complications with sedation or anesthesia?: No Airway Concerns: None Anesthesia Classification: ASA 2 Plan: Proceed with sedation for procedure Fasting Time: Time of last liquid intake: 0430 Date of Last Liquid Intake: 01/10/14 Time of last solid intake: 1800 Date of last solid intake: 01/06/14 Patient Appropriate Candidate for Planned Sedation?: Yes aKm Alejandro MD 01/10/2014 7:51 * Joe Do MD - 01/08/2014 1603 EDT Internal Medicine Admission H&P Admission Date: 01/08/2014 Date of Service: 01/08/2014 PCP: Kamala Rosado MD CC: Melena Subjective: HPI: 58 y.o. male w/ PMHx significant for HCV cirrhosis complicated by esophageal varices (s/p banding 2008), multiple prior GI bleeds (last admission 10/05/2013, s/p negative tagged RBC scan 06/2013),EtOH abuse, and chronic thrombocytopenia presented to ED with approximately 12-24 hours of malaise, lightheadedness, shortness of breath and copious black tarry stools. Pt reports he began feeling ill Tuesday with a SANFORD that continued through the weekend. On Tuesday he began having additional malaise,anorexia, nausea, SOB, and left arm paresthesia. He denied CP, ROSALES (walked 1 mile), vomiting, or abdominal pain. Just after 1am on 01/08/2014 he had a sudden episode of copious melena, described as black and tarry. Once in the ED his Hgb was 12.1 with a normal INR. His stool was guaiac positive and an NG lavage was positive for blood. He was started on octreotide and taken to EGD which showed no culprit varices. The pt then noticed about 2.5 hours ago he had another episode of copious melena. He has not been able to take his home prescriptions for about 1 month now due to the financial burden of losing his insurance. Thus he has not been taking his PPI and nadolol. Review of Systems A 10-point review of [...] History Narrative ??? No narrative on file Lives with fiance; on disability due to scoliosis and encephalopathy. Family History Problem Relation Age of Onset ??? Cancer Mother ??? Breast Cancer Mother ??? Alcohol Abuse Father ??? Cancer Father ??? Diabetes Father ??? Cancer Sister ??? Crohn's Disease Sister ??? Diabetes Sister ??? Cancer Brother ??? Anesth Problems Brother ??? Cancer Sister ??? Anesth Problems Sister No current facility-administered medications on file prior to encounter. Current Outpatient Prescriptions on File Prior to Encounter Medication Sig Dispense Refill ??? FERROUS FUMARATE (IRON ORAL) Take by mouth. ??? FOLIC ACID ORAL Take 5 mg by mouth daily. ??? nadolol (CORGARD) 20 mg tablet Take 20 mg by mouth daily. ??? pantoprazole (PROTONIX) 40 mg tablet Take 40 mg by mouth daily. Allergies Allergies Allergen Reactions ??? Ambien [Zolpidem] Sleep-driving Objective: Blood pressure 106/57, pulse 76, temperature 36.8 ??C (98.2 ??F), temperature source Tympanic, resp. rate 18, height 162.6 cm (64.02), weight 89.359 kg (197 lb), SpO2 96.00%. Wt Readings from Last 1 Encounters: 01/08/14 89.359 kg (197 lb) Gen: AOx3, NAD HEENT: NCAT, EOMI, PERRLA, MMM Neck: Supple, trachea midline, no JVD CV: RRR, normal S1/S2, without MGR Pulm: CTAB without wheezes or rales Abd: tense, distended but NT, -HSM, +BS Ext: WWP, pulses 2+ bilaterally Neuro: AOx3, CN II-XII grossly intact Psych: AOx3, thought content appropriate, speech non-pressured Data Review: CBC: Recent Labs 01/08/14 0936 WBC 7.42 RBC 4.15* HGB 12.1* HCT 35.9* MCV 87 MCH 29.1 MCHC 33.7 PLT 281 NEUTROABS 4.85 BMP: Recent Labs 01/08/14 0936 NA 142 K 5.1* CL 108 CO2 24 BUN 45* CREATININE 0.90 MG 1.8 LABALBU 3.4 Coags: Recent Labs 01/08/14 0936 PROTIME 12.9* INR 1.2* LFT: Recent Labs 01/08/14 0936 TBIL 0.9 ALKPHOS 77 AST 84* ALT 82* Radiology Studies: None Assessment: 58 y.o. 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 Plan: GI Bleed: - GI consulted, appreciate recs and assistance - CBC Q8h for now - Pantoprazole 40mg IV BID - CTX 1g for 7 day course - No indication for octreotide at this time Cirrhosis: Complicated by esophageal varices status post banding - Start coreg 6.25 PO BID PPX: Contraindicated due to bleed Code status: DNR/DNI Dispo: Uncertain at this time Consults: GI Abdiaziz Cruz MD--PGY1 Pager # [phone] 01/08/2014 20:06 Attending attestation: I have seen and examined the patient and agree with findings and plans as outlined in the resident's note above. 58 y/o man with cirrhosis and recurrent GI bleeding presents with another GI bleed. EGD again showsportal gastropathy which is thought to be the culprit. Will cont PPI and BB, and monitor for recurrent bleeding. Would Rx Cipro or other GN coverage for 7 days. Although prospective evidence is limited, Octreotide may be of benefit in portal gastropathy related bleeding and should be restarted if he has ongoing bleeding. Joe Do MD * Rubio Fischer MD - 01/08/2014 1508 EDT Endoscopy Sedation for Procedure History & Physical Date: 01/08/2014 Time: 15:08 Location: [address] Planned Procedure: Gastroscopy Chief Complaint/Indications for Procedure: Melena History Previous Complication with Sedation and/or Anesthesia? No Allergies: Allergies Allergen Reactions ??? Ambien [Zolpidem] Sleep-driving Current Medications: Current Facility-Administered Medications Medication Route Frequency ??? lidocaine (XYLOCAINE) 2 % viscous solution ??? meperidine (PF) (DEMEROL) 100 mg/mL injection ??? midazolam (PF) (VERSED) 1 mg/mL injection ??? octreotide (SANDOSTATIN) 500 mcg in sodium chloride (NS) 0.9 % 250 mL infusion intravenous CONTINUOUS ??? sodium chloride 0.9 % (NS) infusion intravenous CONTINUOUS Current Outpatient Prescriptions Medication Sig Dispense Refill ??? FERROUS FUMARATE (IRON ORAL) Take by mouth. ??? FOLIC ACID ORAL Take 5 mg by mouth daily. ??? nadolol (CORGARD) 20 mg tablet Take 20 mg by mouth daily. ??? pantoprazole (PROTONIX) 40 mg tablet Take 40 mg by mouth daily. Past Medical History: Past Medical History Diagnosis Date ??? Anemia ??? Depression ??? Chronic kidney disease ??? Hepatitis C ??? Cirrhosis of liver ??? Esophageal varices ??? Chronic back pain ??? Leg numbness ??? Colon polyp ??? Mental disorder Social History: Past Surgical History Procedure Laterality Date ??? Esophageal varice ligation 2009 or 2010 ??? Hernia repair hiatal hernia ??? Back surgery 1974, 1981 ??? Shoulder surgery 20 years ago History Substance Use Topics ??? Smoking status: Never Smoker ??? Smokeless tobacco: Never Used ??? Alcohol Use: No Family History: Family History Problem Relation Age of Onset ??? Cancer Mother ??? Breast Cancer Mother ??? Alcohol Abuse Father ??? Cancer Father ??? Diabetes Father ??? Cancer Sister ??? Crohn's Disease Sister ??? Diabetes Sister ??? Cancer Brother ??? Anesth Problems Brother ??? Cancer Sister ??? Anesth Problems Sister Review of Systems as pertinent: Physical Exam Vital Signs: BP 122/72 Pulse 110 Temp(Src) 35.9 ??C (96.6 ??F) (Tympanic) Resp 16 Ht 162.6 cm (64) Wt 89.359 kg (197 lb) BMI 33.8 kg/m2 SpO2 98% Heart Examination: Cardiac Regularity: Regular Respiratory Examination: Respiratory Pattern: Regular Breath Sounds Right: Clear Breath Sounds Left: Clear Abdominal Examination: soft, non-tender; bowel sounds normal; no masses, no organomegaly Additional physical exam related to the proposed procedure, patient activity, disease state and treatment as pertinent: Assessment Previous complications with sedation or anesthesia?: No Airway Concerns: None Anesthesia Classification: ASA 2 Plan: Proceed with sedation for procedure Fasting Time: Time of last liquid intake: 2099 Date of Last Liquid Intake: 01/07/14 Time of last solid intake: 2099 Date of last solid intake: 01/07/14 Patient Appropriate Candidate for Planned Sedation?: Yes Rubio Fischer MD 01/08/2014 15:08 documented in this encounter Procedure Notes * NUCLEAR REACTOR OPERATOR, SCAN 2 - 01/11/2014 0042 EDTAssociated Order(s): PROCEDURE REPORTS - SCANNED * Kam Alejandro MD - 01/10/2014 1922 EDT Brief procedure note Indication/HPI Continued melena Colonoscopy performed in endoscopy suite with conscious sedation. Colon appeared normal except for some general friability evidenced by superficial bleeding with typical colonoscope trauma. Assessment: Most likely etiology of occult bleed is still portal gastropathy given active oozing seen on EGD, but this is not definitive proof. Unusual finding of superficial bleeding on colonoscopy is difficultto interpret clinically. Would recommend adding on a PTT in addition to PT/INR to evaluate for possible coagulopathy. Recommendations: 1. Will likely proceed with capsule study. TIPS is a highly morbid procedure that could be considered for the treatment of bleeding 2/2 portal gastropathy if all other etiologies are excluded. OK to slowly advance diet when patient can tolerate PO. For details of procedure, please see full report in scanned media or procedure tab within PRISM. Kma Alejandro MD Gastroenterology and Hepatology Fellow #[id number] * NUCLEAR REACTOR OPERATOR, SCAN 2 - 01/09/2014 0039 EDTAssociated Order(s): PROCEDURE REPORTS - SCANNED * Rubio Fischer MD - 01/08/2014 192 EDT Brief Procedure Note Indication/HPI Melena x days with NG tube bringing up maroon fluid. EGD done in 06/2013 for melena revealed very small varices at the GE junction, hypertensive portal gastropathy, non-bleeding ulcer in duodenal bulb. . Pt has cirrhosis secondary to hepatitis C (genotype 1a). Varices banded in 2007. Treatment in 2012 to treat with peginterferon and ribavirin was with discontinued due to complications of treatment (encephalitis). Patient's labs reveal only minimal hepatic synthetic dysfunction. Pt also has a history of obscure gastrointestinal blood loss, which had been extensively evaluated at [facility], including upper endoscopy, colonoscopy and capsule endoscopy. Physical Exam Gen: mentating well. NG tube to suction with maroon fluid. Abd: non-tender Rectal: melena EGD performed in endoscopy suite with conscious sedation. Esophagus- Small non-bleeding varices in GE junction Stomach- portal gastropathy Duodenum- normal Assessment/Plan: 58yo male with cirrhosis 2/2 hep c, history of GI bleeds, presenting with melena. - No obvious culprit lesion. Likely due to portal gastropathy. Similar findings to previous workup. - Patient should be resuscitated as needed and placed on carvedilol prior to discharge. Dose can bestarted at starting at 6.25 mg BID and titrated up according to blood pressure and heart rate - Continue antibiotics x 7 days - Follow-up with Hepatology as outpatient. OK to slowly advance diet when patient can tolerate PO. For details of procedure, please see full note in procedure or scanned media tab within PRISM. Kam Alejandro MD Gastroenterology and Hepatology #[id number] Attestation statement: I saw and examined the patient with the resident/fellow. I agree with the findings and plan of care documented in the resident's/fellow's note. documented in this encounter Consult Notes * Joelle Lynch MD - 01/11/2014 2311 EDT HEMATOLOGY/ONCOLOGY CONSULT NOTE Admit Date: 01/08/2014 Date of Service: 01/11/2014 REASON FOR CONSULT: CONSULT REQUESTED BY: HISTORY OF PRESENT ILLNESS: Patient is a 58 y.o. male with past medical history of hepatitis C (with prior attempted treatment with ribavirin and interferon that resulted in severe reaction to IFN requiring hospitalization), liver cirrhosis w/ prior GI bleeds and banding of esophageal varices, who was admitted with another episode of GI bleeding (had copious melena on admission, with positive blood on gastric lavage and finding of portal gastropathy on EGD w/o active variceal bleed, colonoscopy showed friable mucosa and no active spontaneous bleeding). Pt was resuscitated with blood products, was started on Protonix andCTX and was hemodynamically stabilized. He was also noted to have worsening pancytopenia, so, Hematology was consulted for further evaluation. PMH PSH Past Medical History Diagnosis Date [...] 1981 ??? Shoulder surgery 20 years ago CURRENT MEDICATIONS PRIOR TO ADMISSION MEDICATIONS Current Facility-Administered Medications Medication Route Frequency ??? acetaminophen (TYLENOL) tablet 500 mg oral Q6H PRN ??? carvedilol (COREG) tablet 6.25 mg oral BID (BREAKFAST/DINNER) ??? cefTRIAXone (ROCEPHIN) 1,000 mg in sodium chloride 0.9 % 50 mL IVPB intravenous DAILY ??? cyanocobalamin tablet 1,000 mcg oral DAILY ??? folic acid (FOLVITE) tablet 1 mg oral DAILY ??? ondansetron (PF) (ZOFRAN) injection 4 mg intravenous Q4H PRN ??? pantoprazole (PROTONIX) tablet 40 mg oral BID ??? thiamine (VITAMIN B1) tablet 100 mg oral DAILY Prescriptions prior to admission Medication Sig Dispense Refill ??? FERROUS FUMARATE (IRON ORAL) Take by mouth. ??? FOLIC ACID ORAL Take 5 mg by mouth daily. ??? nadolol (CORGARD) 20 mg tablet Take 20 mg by mouth daily. ??? pantoprazole (PROTONIX) 40 mg tablet Take 40 mg by mouth daily. ALLERGIES Allergies Allergen Reactions ??? Ambien [Zolpidem] Sleep-driving SOCIAL HISTORY FAMILY HISTORY History Substance Use Topics ??? Smoking status: [...] ??? Cancer Sister ??? Anesth Problems Sister REVIEW OF SYSTEMS: A complete 10 point review of systems was performed and is otherwise negative. OBJECTIVE: BP 94/52 Pulse 62 Temp(Src) 37.4 ??C (99.3 ??F) (Tympanic) Resp 18 Ht 162.6 cm (64.02) Wt 89.359 kg (197 lb) BMI 33.8 kg/m2 SpO2 97% General appearance: Awake, alert, oriented x3, NAD. Skin: Skin color, temperature, turgor normal. No rashes or lesions/bruises except for the sites of IV draws. Large healed midline scar on lower back from prior spine surgery. Head: Normocephalic, with b/l temporal old healed scars from bone traction. Eyes: conjunctivae/corneas clear. PERRL, EOM's grossly intact. Neck: supple, symmetrical, trachea midline, no adenopathy. Lungs: clear to auscultation bilaterally Heart: regular rate and rhythm, S1, S2 normal, no murmur, click, rub or gallop Abdomen: soft, non-tender, protuberant with midline ventral hernia noted; bowel sounds present, no palpable hepatosplenomegaly, resonant to percussion in midline w/ dullness in b/l flanks. Extremities: atraumatic, no significant edema, clubbing, cyanosis, no discoloration. Neuro: CN II - XII grossly intact, no focal abnormalities. Data Review Recent Labs 01/10/14 2130 01/11/14 0542 01/11/14 1801 WBC 1.81* 1.81* 2.63* HGB 8.1* 7.9* 8.2* HCT 23.0* 23.3* 24.5* PLT 96* 99* 118* Recent Labs 01/09/14 0904 01/10/14 0539 01/11/14 0542 NA 140 144 140 K 3.9 3.8 3.6 CL 112* 111* 110 CO2 23* 22* 22* BUN 28* 20 16 CREATININE 0.86 0.90 1.00 Imaging: Rt UQ US: 01/10/14: Impression: No focal hepatic mass is identified. Hepatic cirrhosis. Portal hypertension with suspected reversal of portal flow. Assessment: 58 y.o. male with past medical history of hepatitis C (which he reports was acquired secondary to blood transfusions during his surgeries in 1970s - pt was started on treatment with ribavirin and IFNwhich had to be terminated shortly after beginning d/t severe reaction to interferon ), cirrhosis of liver w/ prior history of GIB requiring variceal banding, poor compliance with beta blockers (for secondary prevention) due to financial issues, who presented with recurrent GIB. He was also noted to have pancytopenia, so Hematology was consulted. -> Thrombocytopenia: pt has cirrhosis of the liver (so likely decrease in thrombopoetin, causingdecreased platelets). He also had recent GI bleed with consumption of platelets. His platelets did drop more transiently, however, his kasey was in June of 2013 w/ plt of 77K. He also has active hepatitis C, which can result in pancytopenia, like many other viral infections. Protonix can cause thrombocytopenia in less than 1% cases, however, it has already been stopped. -> Anemia, likely a combination of anemia of chronic disease d/t cirrhosis and hep C, plus GIB. -> Leukopenia: Likely secondary to hepatitis C infection. Ceftriaxone is also associated with Leukopenia in 2% of cases, however, given the fact that wbc platued while continuing CTX, this does not appear to be the culprit in his case. Pt denies prior hx of HIV, however, this should also be screened, pt gave verbal consent for testing. Transient WBC decrease out of proportion to other blood counts seems to have reached plateau. Recommendations: 1. As mentioned above, pancytopenia in this pt is multifactorial (cirrhosis of the liver, hepatitisC infection, recent GIB). He also has evidence of portal hypertension, however, US was an RUQ imaging, so spleen was not evaluated, would recommend assessing for splenomegaly as well (as this can also result in cytopenias). Pt does not have palpable spleen on exam, however, it usually requires spleen size to double before it can be clinically palpated. Please also obtain CBC with differential tomorrow. (Dr Lynch and I have reviewed the peripheral blood smear along with pathology, there were no abnormal cells or blasts seen on the smear from 01.11.14). Although, pt does not appear to have HIV hx , he agreed to screening for HIV, would recommend testing. 2. Patient had severe reaction to interferon, so, he could not get treated for hepatitis C. In the setting of established cirrhosis, treatment might not improve the liver disease, however, his cytopenias are probably related in large part to his Hep C infection. Would defer Hep C treatment to Hepatology. Consider periodic AFP monitoring in addition to Q6mo imaging for screening of hepatocellular ca. Patient was seen/discussed with the attending Dr. Lynch. Attestation statement: I saw and examined the patient with the fellow. I agree with the findings and plan of care documented in her note. * Kam Alejandro MD - 01/09/2014 1724 EDT GI CONSULT FOLLOW UP NOTE Author: Kam Alejandro MD Attending Physician: Joe Do MD 24hr Events/S: - Patient received EGD yesterday. Mild gastric oozing visibile, likely from portal gastropathy. - Patient had another episode of melena this morning (01/09/14) O: Last Vitals: BP 86/51 Pulse 61 Temp(Src) 37.1 ??C (98.8 ??F) (Tympanic) Resp 18 Ht 162.6 cm(64.02) Wt 89.359 kg (197 lb) BMI 33.8 kg/m2 SpO2 96% Filed Vitals: 01/09/14 0613 01/09/14 0700 01/09/14 1354 01/09/14 1630 BP: 92/46 112/56 109/57 86/51 Pulse: 76 71 61 61 Temp: 36.8 ??C (98.2 ??F) 37.2 ??C (99 ??F) 36 ??C (96.8 ??F) 37.1 ??C (98.8 ??F) TempSrc: Tympanic Tympanic Tympanic Tympanic Resp: 18 18 18 18 Height: Weight: SpO2: 97% 96% General: well appearing, in NAD HEENT: no conjunctival icterus Resp: CTAB CV: RRR, no m/g/r Abd: Soft, nt, nd, +BS Ext: WWP, no edema Meds/Labs: See PRISM Procedures: EGD- portal gastropathy ASSESSMENT and RECOMMENDATIONS: Alonzo Urbina is a 58 y.o. male cirrhosis related to hepatitis C, portal gastropathy, and recurrent occult bleeding 1. Please prep patient with Golytely for colonoscopy tomorrow. Clear liquids okay until midnight. Then NPO. 2. Please ensure patient's stool is completely clear for scheduled colonoscopy time of 8am tomorrow. My Assessment and Plan were discussed with my Attending, Dr. Catalan who agrees with the above. Kam Alejandro MD GI and Hepatology Fellow Pager [phone] documented in this encounter ED Notes * Karrie Rose MD - 01/10/2014 0144 EDT This is a patient that he received in transfer from Dr. Morillo after the patient was initially seen on the general treatment side of the emergency department and was referred to the acute care side. The patient had an NG placed with bright red blood as well as clots, he was evaluated by GI and they decided to do a scope. There was a delay in getting his endoscopy however the patient remained very hemodynamically stable, he did receive IV fluids and had a hemoglobin of 12. Ultimately his scope showed some gastropathy but no significant varices. He was subsequently admitted to the medicine service for evaluation and management. * Asif Jha RN - 01/08/2014 1602 EDT [phone] Fang English. * Edwardo Bejarano RN - 01/08/2014 1341 EDT Patient assisted to bedside commode for bowel movement. Patient steady on feet and transferred independently. Patient had liquid black tarry bowel movement. Patient back to bed with both rails up andcall salas in place. * Uvaldo Quinn RN - 01/08/2014 1303 EDT Gagging from NGT. Hurricane spray was used and immediate relief was felt * Uvaldo Quinn RN - 01/08/2014 1118 EDT Fresh blood, as well as clots and coffee ground-like material present in pt's stomach. Irrigated with tap water * Uvaldo Quinn RN - 01/08/2014 1117 EDT alesia Bowers, cell phone [phone] * Uvaldo Quinn RN - 01/08/2014 1114 EDT Naso gastric tube was inserted. Pre-medicated with Versed. Lidocaine used prior to insert tube. The procedure was well tolerated. * Jin Redmond - 01/08/2014 1013 EDT Blood drawn via saline lock per protocol, tiger, blue, purple and pink tube(s) sent to lab per order. * Zac Morillo MD - 01/08/2014 0934 EDT DOS: 01/08/2014 Chief Complaint Patient presents with ??? Rectal Bleeding pt reports rectal bleeding since last night, many stools, black in nature, sob this am, headache since yesterday The patient is a 58 y.o. male who presents today with Rectal Bleeding HPI Comments: Patient with history of cirrhosis, banded esophageal varices and multiple prior GI bleeds presents with approximately 12-24 hours of malaise, lightheadedness, shortness of breath and copious black tarry stools. Mild nausea but no vomiting or hematemesis. Abdominal bloating without pain. No fevers, chills, syncope. No significant painful complaints. Symptoms not provoked or worsened by anything. The history is provided by the patient. Review of Systems Constitutional: Positive for diaphoresis and fatigue. Negative for fever and chills. HENT: Negative for congestion, rhinorrhea and sore throat. Eyes: Negative for visual disturbance. Respiratory: Negative for cough and shortness of breath. Cardiovascular: Negative for chest pain. Gastrointestinal: Positive for nausea, blood in stool and hematochezia. Negative for vomiting, abdominal pain and diarrhea. Genitourinary: Negative for dysuria. Musculoskeletal: Negative for arthralgias, back pain, joint swelling and neck pain. Skin: Negative for rash. Neurological: Positive for light-headedness. Negative for dizziness, weakness, numbness and headaches. Psychiatric/Behavioral: Negative for confusion. All other systems reviewed and are negative. Past Medical History Diagnosis Date ??? Anemia ??? Depression ??? Chronic kidney disease ??? Hepatitis C ??? Cirrhosis of liver ??? Esophageal varices ??? Chronic back pain ??? Leg numbness ??? Colon polyp ??? Mental disorder Past Surgical History Procedure Laterality Date ??? Esophageal varice ligation 2009 or 2009 ??? Hernia repair hiatal hernia [...] Sister ??? Anesth Problems Sister Vital Signs Temp: 35.9 ??C (96.6 ??F) Temp src: Tympanic Pulse: 110 Resp: 18 SpO2: 100 % BP: 126/73 mmHg BP Device: BP Machine O2 Device: None (Room air) Physical Exam Nursing note and vitals reviewed. Constitutional: He is oriented to person, place, and time. He appears well- developed and well-nourished. No distress. HENT: Head: Normocephalic and atraumatic. Mouth/Throat: Oropharynx is clear and moist. Eyes: Pupils are equal, round, and reactive to light. No scleral icterus. Neck: Normal range of motion. Neck supple. Cardiovascular: Regular rhythm, normal heart sounds and intact distal pulses. Tachycardia present. Exam reveals no gallop and no friction rub. No murmur heard. Pulmonary/Chest: Effort normal and breath sounds normal. No respiratory distress. He has no rales. Abdominal: Soft. Bowel sounds are normal. He exhibits no distension. There is no tenderness. There is no rebound and no guarding. Genitourinary: Guaiac positive stool (heme positive melena). Musculoskeletal: Normal range of motion. He exhibits no edema. Neurological: He is alert and oriented to person, place, and time. He has normal strength. No cranial nerve deficit or sensory deficit. Skin: Skin is warm and dry. No rash noted. He is not diaphoretic. No erythema. No pallor. Psychiatric: He has a normal mood and affect. His behavior is normal. Judgment and thought content normal. Radiology orders: None Imaging Results None Procedures ED Course: A medical screening exam was performed. Tachycardic, copious melena that is heme positive, no hematemesis, and history of liver disease with varices 2 large-bore IVs established, 2 L normal saline bolus, labs sent including type and screen INR 1.2 Hematocrit 36, stable for patient, normal platelets NG lavage ordered 01/08/2014 10:41 Transferred to for closer monitoring, care transferred to my colleague Dr. Rose. Blood pressure 105, heart rate 100. Disposition: Admitted The patient's pain was managed to an adequate level weighing risk vs. benefit of further medications. Upon departure from the Emergency Department, the patient's pain was 0 on a zero to ten scale. Condition at departure from the Emergency Department: serious ED Current Prescriptions None MDM Number of Diagnoses or Management Options Final diagnoses: GI bleed 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 PCP: Kamala Rosado MD 01/08/2014 9:34 No flowsheet data found. * Chen Pham RN - 01/08/2014 0121 EDT Pt out of home medicines not taking, he has no money documented in this encounter Miscellaneous Notes * Plan of Care - Venecia Alamo RN - 01/12/2014 2941 EDT Problem: PAIN Goal: Patient???s Pain And Discomfort Are Adequately Managed Data: Pt c/o 6/10 headache. Tolerating regular diet with no c/o nausea. Action: Administered prn tylenol. Response: Pt states pain relieved by tylenol, will continue to monitor. Venecia Alamo RN 01/12/2014 3:38 * Plan of Care - Elly Ricci RN - 01/11/2014 1901 EDT Problem: NAUSEA AND VOMITING Goal: Patient Will Experience Relief from Nausea and Vomiting Data: Pt advanced to regular diet this morning. No nausea and vomiting, no c/o pain. No bleeding upper or lower GI. Action: Explained to Pt the importance of eating small slow meals. Response: Pt resting in room. Continue to monitor. Elly Ricci RN 01/11/2014 18:58 * Plan of Care - Venecia Alamo RN - 01/11/2014 0206 EDT Problem: NAUSEA AND VOMITING Goal: Patient Will Experience Relief from Nausea and Vomiting Data: Pt with no complaints of pain/nausea, resting comfortably in bed. Action: Provided pt with snack of jello and mercedes josé miguel. Response: Pt tolerating clear liquid diet well, no BM yet, will continue to monitor. Venecia Alamo RN 01/11/2014 2:03 * Plan of Care - Ana Vargas RN - 01/10/2014 1668 EDT Problem: NAUSEA AND VOMITING Goal: Patient Will Experience Relief from Nausea and Vomiting Outcome: Met This Shift Data: Pt drowsy most of shift after colonoscopy. Complained of nausea. Action: Medicated with Zofran 4 mg IV. Response: Zofran effective. No stools this shift. Pt now tolerating clear liquids. Ana Vargas RN 01/10/2014 18:25 * Plan of Care - Joesph Robb RN - 01/10/2014 0459 EDT Problem: ELIMINATION Goal: Elimination Patterns Are Normal Or Improving Data: pt admitted for GI Bleed; pt with colonoscopy procedure in the morning. Pt denies pain and discomfort. IV ns infusing. Action: administered 1 L NS as ordered and Golytely 1 L every hour as md ordered, see mar; RN called [phone] to confirm if pt is getting all 4 L of golytely before midnight. No new order recvd. Response: pt continue to have watery bloody bm (clearing up per pt) during the night, voiding fine.No complaints. Will ctm. Joesph Robb RN 01/10/2014 4:46 * Plan of Care - Phillip Marcos RN - 01/09/2014 1105 EDT Problem: ELIMINATION Goal: Elimination Patterns Are Normal Or Improving Data: Bright red blood noted in the bathroom after bowel movement. Physician team okayed the patient to eat and drink as tolarated Action: MD Harman) present in the unit and made aware. Offered Pt fluid and encouraged to eat as tolerated. textpage Dr Cruz to update diet orders. Response:Physician team assessed the characteristic of the stool inside the patient room .Pt declined food but was able to sip water. Phillip Augustine RN 01/09/2014 10:59 * Plan of Care - Phillip Marcos RN - 01/09/2014 0938 EDT Problem: PSYCHOSOCIAL Goal: Demonstrates Ability To Tama With Hospitalization Data: Patient worried that following his previous hospitalization with GI bleeding, he is usually discharged before the condition is resolved and he fears this might happen again. Action: MD Mack) made aware of the patient concern and together with the patient agree to resolve the bleeding before discharge. Response: Patient satisfied with the discussion with the MD and verbalizes feeling of optimism. Phillip Augustine RN 01/09/2014 9:30 * Plan of Care - Clmeencia Mckeon RN - 01/08/2014 2201 EDT Problem: CIRCULATORY STATUS Goal: Patient Has Stable Vital Signs And Fluid Balance Data: Pt `s H/H dropping, see review results. BP 98/46, pt c/o SAN[place] and weakness. Action: called and notified. Order to get another H/H at 0200. Response: Pt had large black loose BM. 0146 aware of it. Will cont to monitor and alert the team about changes. CLEMENCIA MCKEON RN 01/08/2014 21:58 0220: H/H at 0200 stable compare to previous result, MD STEFAN called and notified. Will cont to monitor. 0250: pt OOB to the BR voided and smear bloody BM. * Plan of Care - Clemencia Mckeon RN - 01/08/2014 2012 EDT Problem: PSYCHOSOCIAL Goal: Demonstrates Ability To Tama With Hospitalization Data: Pt is a new admit to [place] [address] room 421 bed 1 from ER. Action: Provided with general information, oriented to new environment, assessed resp and hemodynamic status, admission database completed. Response: Pt c/o of SAN[place] and nausea at this time, no meds ordered for that, will contact MD and notify. CLEMENCIA MCKEON RN 01/08/2014 20:06 documented in this encounter Plan of Treatment Upcoming Encounters Date Type Department Care Team (Late st Contact Info) Description 01/23/2024 10:00 EDT Office Visit [facility] General Surgery - [address] [address] Bon Gutierrez MD [address] [place] [address], [facility], [address] [place] [address] 09/10/2024 10:00 EDT Appointment [facility] Ul[facility] [address] [place] [address] Pending Results Name Type Priority Associated Diagnoses Date /Time ELEVATED GLUCOSE Lab Routine 01/09/20 14 9:36 EDT ANTIBODY IDENTIFICATION Blood Bank Routine 0 01/08/2014 10:58 EDT Scheduled Orders Name Type Priority Associated Diagnoses Orde r Schedule ELEVATED GLUCOSE Lab Routine One Time for 1 Occurrences starting 01/08/2014 until 01/08/2014 ANTIBODY IDENTIFICATION Blood Bank Routine O ne Time for 1 Occurrences starting 01/08/2014 until 01/08/2014 Scheduled Referrals Name Type Priority Associated Diagnoses Order Schedule AMB CONS/FOLLOW UP PRIMARY CARE PHYSICIAN Outpatient Referral Routine 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 GI bleed Portal hypertensive gastropathy Pancytopenia (CMS-HCC) (HCC-CMS) Ordered: 01/12/2014 AMB CONS/FOLLOW UP GASTROENTEROLOGY Outpatient Referral Routine 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 Portal hypertensive gastropathy GI bleed Ordered: 01/12/2014 documented as of this encounter Procedures Procedure Name Priority Date/Time Associated Diagnosis Comments METHYLMALONIC ACID Routine 01/12/2014 9: 17 EDT RAPID HIV 1/2 ANTIGEN AND ANTIBODY, 4TH GENERATION Routine 01/12/2014 9:17 EDT VITAMIN B12 Routine 01/12/2014 9:17 EDT INPATIENT ADD-ON Routine 01/12/2014 8:50 EDT DIFFERENTIAL Routine 01/12/2014 5:53 EDT COMPLETE BLOOD COUNT Routine 01/12/2014 5:53 EDT BUN Routine 01/12/2014 5:53 EDT CREATININE Routine 01/12/2014 5:53 EDT ELECTROLYTES Routine 01/12/2014 5:53 EDT COMPLETE BLOOD COUNT Routine 01/11/2014 18:01 EDT COMPLETE BLOOD COUNT Routine 01/11/2014 5:42 EDT BUN Routine 01/11/2014 5:42 EDT CREATININE Routine 01/11/2014 5:42 EDT ELECTROLYTES Routine 01/11/2014 5:42 EDT PROCEDURE REPORTS - SCANNED 01/11/2014 0:42 EDT COMPLETE BLOOD COUNT Routine 01/10/2014 21:30 EDT COMPLETE BLOOD COUNT Routine 01/10/2014 16:39 EDT COMPLETE BLOOD COUNT Routine 01/10/2014 5:39 EDT BUN Routine 01/10/2014 5:39 EDT CREATININE Routine 01/10/2014 5:39 EDT ELECTROLYTES Routine 01/10/2014 5:39 EDT COMPLETE BLOOD COUNT Routine 01/09/2014 21:34 EDT COMPLETE BLOOD COUNT STAT 01/09/2014 16:52 EDT COMPLETE BLOOD COUNT Routine 01/09/2014 14:02 EDT COMPLETE BLOOD COUNT STAT 01/09/2014 9:04 EDT BUN STAT 01/09/2014 9:04 EDT CREATININE STAT 01/09/2014 9:04 EDT ELECTROLYTES STAT 01/09/2014 9:04 EDT COMPLETE BLOOD COUNT VICENTA 01/09/2014 2:02 EDT PROCEDURE REPORTS - SCANNED 01/09/2014 0:39 EDT COMPLETE BLOOD COUNT Routine 01/08/2014 21:28 EDT PREPARE RED BLOOD CELLS Routine 01/09/20 14 12:30 EDT PREPARE RED BLOOD CELLS Routine 01/09/20 14 12:30 EDT PREPARE RED BLOOD CELLS Routine 01/09/20 14 11:15 EDT PREPARE RED BLOOD CELLS Routine 01/09/20 14 11:15 EDT ANTIBODY IDENTIFICATION Routine 01/09/20 14 10:58 EDT SCREENING GLUCOSE STAT 01/08/2014 9:3 6 EDT DIFFERENTIAL STAT 01/08/2014 9:36 EDT PROTIME STAT 01/08/2014 9:36 EDT COMPLETE BLOOD COUNT STAT 01/08/2014 9:36 EDT COMPLETE BLOOD COUNT AND DIFFERENTIAL STAT 01/08/2014 9:36 EDT BUN STAT 01/08/2014 9:36 EDT MAGNESIUM STAT 01/08/2014 9:36 EDT CREATININE STAT 01/08/2014 9:36 EDT HEPATIC FUNCTION PANEL (ALB,ALK PHOS,ALT,AST,DBIL,TOT MARVEL,TOT PROT) STAT 01/08/2014 9:36 EDT ELECTROLYTES STAT 01/08/2014 9:36 EDT TYPE AND SCREEN Routine 01/08/2014 9:35 EDT documented in this encounter Results * VITAMIN B12 (01/12/2014 9:17 EDT) Vitamin B-12 745 211 - 911 pg/ml [facility] Blood specimen (specimen) 01/12/2014 9:17 EDT 01/12/2014 9:25 EDT Belle Montano MD CHEMISTRY & BLOOD GA S ORDERABLES Performing Organization Address [facility] Co de Phone Number [facility] [address] [place] [address] * METHYLMALONIC ACID (01/12/2014 9:17 EDT) [facility] Methylmalonic Acid 0.13 <=0.40 nmol/mL [facility] Comment: Performed or Referred by: [facility] Labs: [facility], [facility] [place] [address], Lab Dir: Richard Allan III, MD Blood specimen (specimen) 01/12/2014 9:17 EDT 01/12/2014 9:25 EDT Belle Montano MD CHEMISTRY & BLOOD GA S ORDERABLES Performing Organization Address [facility] de Phone Number [facility] [address] [place] [address] * RAPID HIV 1/2 AB (01/12/2014 9:17 EDT) [facility] Rapid HIV 1/2 Ab Negative [facility] Comment: If acute HIV-1 infection is suspected in a high risk patient, submit plasma specimen for HIV-1 RNA quantification test. Reference Range: ??Negative Assayed utilizing [employer] chemiluminescent technology. Blood specimen (specimen) 01/12/2014 9:17 EDT 01/12/2014 9:25 EDT Belle Montano MD CHEMISTRY & BLOOD GA S ORDERABLES Performing Organization Address [facility] Co de Phone Number [facility] [address] [place] [address] * INPATIENT ADD-ON (01/12/2014 8:50 EDT) [facility] Tests to be added DIFFERENTIAL TO HEMAGRAM [facility] Number for problems [id number] [facility] Accession number [id number] [facility] 01/12/2014 8:50 EDT 01/12/2014 8:51 EDT Belle Montano MD HEMATOLOGY & PF4 ORD ERABLES Performing Organization Address [facility] Co de Phone Number [facility] [address] [place] [address] * (ABNORMAL) DIFFERENTIAL (01/12/2014 5:53 EDT) Neutrophils 60.0 45.5 - 79.7 % [facility] Lymphocytes 28.0 15.0 - 46.8 % [facility] Monocytes 9.0 1.8 - 12.0 % [facility] Eosinophils 3.0 0.6 - 6.9 % [facility] ABS Neutrophils 1.47(L) 2.20 - 8.85 K/cmm [facility] ABS Lymphs 0.69(L) 1.09 - 3.30 K/cmm [facility] ABS Monocytes 0.22 0.1 - 0.8 K/cmm [facility] ABS Eosinophils 0.07 0.03 - 0.61 K/cmm [facility] Type of Diff: Manual [facility] 01/12/2014 5:53 EDT 01/12/2014 6:12 EDT Abdiaziz Cruz MD HEMATOLOGY & PF4 ORD ERABLES Performing Organization Address City/[facility]/ZIP Co de Phone Number [facility] [address] [place] [address] * (ABNORMAL) HEMAGRAM (01/12/2014 5:53 EDT) WBC 2.45(L) 4.0 - 10.4 K/cmm [facility] RBC 2.68(L) 4.36 - 5.78 M/cmm [facility] Hemoglobin 7.9(L) 13.8 - 17.3 gm/dl [facility] HCT 23.2(L) 39.5 - 50.2 % [facility] MCV 87 81 - 95 fl [facility] MCH 29.6 27.6 - 33.0 pg [facility] MCHC 34.1 32.8 - 36.4 gm/dl [facility] PLT 100(L) 141 - 320 K/cmm [facility] RDW-CV 19.9(H) 11.8 - 14.1 % [facility] Comment:2+ Anisocytosis Blood specimen (specimen) 01/12/2014 5:53 EDT 01/12/2014 6:12 EDT Abdiaziz Cruz MD HEMATOLOGY & PF4 ORD ERABLES Performing Organization Address [facility] Co de Phone Number [facility] [address] [place] [address] * ELECTROLYTES (01/12/2014 5:53 EDT) Sodium 139 136 - 145 mEq/L [facility] Potassium 3.6 3.5 - 5.0 mEq/L [facility] Chloride 109 96 - 110 mEq/L [facility] CO2 24 24 - 32 mEq/L [facility] Blood specimen (specimen) 01/12/2014 5:53 EDT 01/12/2014 6:12 EDT Abdiaziz Cruz MD CHEMISTRY & BLOOD GA S ORDERABLES Performing Organization Address [facility] de Phone Number [facility] [address] [place] [address] * CREATININE (01/12/2014 5:53 EDT) Creatinine 0.84 0.66 - 1.25 mg/dl [facility] GFR, Calculated >60 >60 ml/min/1.7 3m2 [facility] Blood specimen (specimen) 01/12/2014 5:53 EDT 01/12/2014 6:12 EDT Abdiaziz Cruz MD CHEMISTRY & BLOOD GA S ORDERABLES Performing Organization Address [facility] Co de Phone Number [facility] [address] [place] [address] * BUN (01/12/2014 5:53 EDT) BUN 14 10 - 26 mg/dl [facility] Blood specimen (specimen) 01/12/2014 5:53 EDT 01/12/2014 6:12 EDT Abdiaziz Cruz MD CHEMISTRY & BLOOD GA S ORDERABLES Performing Organization Address [facility]/ZIP Co de Phone Number [facility] [address] [place] [address] * (ABNORMAL) HEMAGRAM (01/11/2014 18:01 EDT) WBC 2.63(L) 4.0 - 10.4 K/cmm [facility] RBC 2.83(L) 4.36 - 5.78 M/cmm [facility] Hemoglobin 8.2(L) 13.8 - 17.3 gm/dl [facility] HCT 24.5(L) 39.5 - 50.2 % [facility] MCV 87 81 - 95 fl [facility] MCH 29.0 27.6 - 33.0 pg [facility] MCHC 33.6 32.8 - 36.4 gm/dl [facility] PLT 118(L) 141 - 320 K/cmm [facility] RDW-CV 20.2(H) 11.8 - 14.1 % [facility] Comment:2+ Anisocytosis Blood specimen (specimen) 01/11/2014 18:01 EDT 01/11/2014 18:21 EDT Abdiaziz Cruz MD HEMATOLOGY & PF4 ORD ERABLES Performing Organization Address City/[facility]/ZIP Co de Phone Number [facility] [address] [place] [address] * (ABNORMAL) HEMAGRAM (01/11/2014 5:42 EDT) WBC 1.81(L) 4.0 - 10.4 K/cmm [facility] RBC 2.72(L) 4.36 - 5.78 M/cmm [facility] Hemoglobin 7.9(L) 13.8 - 17.3 gm/dl [facility] HCT 23.3(L) 39.5 - 50.2 % [facility] MCV 86 81 - 95 fl [facility] MCH 29.1 27.6 - 33.0 pg [facility] MCHC 33.9 32.8 - 36.4 gm/dl [facility] PLT 99(L) 141 - 320 K/cmm [facility] RDW-CV 20.3(H) 11.8 - 14.1 % [facility] Comment:2+ Anisocytosis Blood specimen (specimen) 01/11/2014 5:42 EDT 01/11/2014 6:26 EDT Abdiaziz Cruz MD HEMATOLOGY & PF4 ORD ERABLES Performing Organization Address [facility] Co de Phone Number [facility] [address] [place] [address] * (ABNORMAL) ELECTROLYTES (01/11/2014 5:42 EDT) Sodium 140 136 - 145 mEq/L [facility] Potassium 3.6 3.5 - 5.0 mEq/L [facility] Chloride 110 96 - 110 mEq/L [facility] CO2 22(L) 24 - 32 mEq/L [facility] Blood specimen (specimen) 01/11/2014 5:42 EDT 01/11/2014 6:26 EDT Abdiaziz Cruz MD CHEMISTRY & BLOOD GA S ORDERABLES Performing Organization Address [facility] Co de Phone Number [facility] [address] [place] [address] * CREATININE (01/11/2014 5:42 EDT) Creatinine 1.00 0.66 - 1.25 mg/dl [facility] GFR, Calculated >60 >60 ml/min/1.7 3m2 [facility] Blood specimen (specimen) 01/11/2014 5:42 EDT 01/11/2014 6:26 EDT Abdiaziz Cruz MD CHEMISTRY & BLOOD GA S ORDERABLES Performing Organization Address City/[facility]/ZIP Co de Phone Number [facility] [address] [place] [address] * BUN (01/11/2014 5:42 EDT) BUN 16 10 - 26 mg/dl [facility] Blood specimen (specimen) 01/11/2014 5:42 EDT 01/11/2014 6:26 EDT Abdiaziz Cruz MD CHEMISTRY & BLOOD GA S ORDERABLES Performing Organization Address [facility] Co de Phone Number [facility] [address] [place] [address] * PROCEDURE REPORTS - SCANNED (01/11/2014 0:42 EDT) 01/11/2014 0:42 EDT Narrative 01/11/2014 1:28 EDT Procedure Note NUCLEAR REACTOR OPERATOR, SCAN 2 - 01/11/2014 0:42 EDT Scan 2 Geothermal Electrical Engineer PROCEDURE/MINOR TY GICAL ORDERABLES * (ABNORMAL) HEMAGRAM (01/10/2014 21:30 EDT) WBC 1.81(L) 4.0 - 10.4 K/cmm [facility] RBC 2.67(L) 4.36 - 5.78 M/cmm [facility] Hemoglobin 8.1(L) 13.8 - 17.3 gm/dl [facility] HCT 23.0(L) 39.5 - 50.2 % [facility] MCV 86 81 - 95 fl [facility] MCH 30.2 27.6 - 33.0 pg [facility] MCHC 35.0 32.8 - 36.4 gm/dl [facility] PLT 96(L) 141 - 320 K/cmm [facility] RDW-CV 21.0(H) 11.8 - 14.1 % [facility] Comment:2+ Anisocytosis Blood specimen (specimen) 01/10/2014 21:30 EDT 01/10/2014 21:35 EDT Abdiaziz Cruz MD HEMATOLOGY & PF4 ORD [employer] [facility] [address] [place] [address] * (ABNORMAL) HEMAGRAM (01/10/2014 16:39 EDT) WBC 1.65(L) 4.0 - 10.4 K/cmm [facility] Comment:Rev'd by Pathologist RBC 2.64(L) 4.36 - 5.78 M/cmm [facility] Hemoglobin 7.7(L) 13.8 - 17.3 gm/dl [facility] HCT 22.9(L) 39.5 - 50.2 % [facility] MCV 87 81 - 95 fl [facility] MCH 29.2 27.6 - 33.0 pg [facility] MCHC 33.8 32.8 - 36.4 gm/dl [facility] PLT 97(L) 141 - 320 K/cmm [facility] RDW-CV 20.9(H) 11.8 - 14.1 % [facility] Comment:2+ Anisocytosis Blood specimen (specimen) 01/10/2014 16:39 EDT 01/10/2014 16:49 EDT Abdiaziz Cruz MD HEMATOLOGY & PF4 ORD [employer] [facility] [address] [place] [address] * (ABNORMAL) HEMAGRAM (01/10/2014 5:39 EDT) WBC 2.61(L) 4.0 - 10.4 K/cmm [facility] RBC 2.94(L) 4.36 - 5.78 M/cmm [facility] Hemoglobin 8.6(L) 13.8 - 17.3 gm/dl [facility] HCT 25.4(L) 39.5 - 50.2 % [facility] MCV 86 81 - 95 fl [facility] MCH 29.1 27.6 - 33.0 pg [facility] MCHC 33.6 32.8 - 36.4 gm/dl [facility] PLT 121(L) 141 - 320 K/cmm [facility] RDW-CV 21.1(H) 11.8 - 14.1 % [facility] Comment:2+ Anisocytosis Blood specimen (specimen) 01/10/2014 5:39 EDT 01/10/2014 7:23 EDT Abdiaziz Cruz MD HEMATOLOGY & PF4 ORD ERABLES Performing Organization Address [facility] de Phone Number [facility] [address] [place] [address] * (ABNORMAL) ELECTROLYTES (01/10/2014 5:39 EDT) Pathologist [facility] Sodium 144 136 - 145 mEq/L [facility] Potassium 3.8 3.5 - 5.0 mEq/L [facility] Chloride 111(H) 96 - 110 mEq/L [facility] CO2 22(L) 24 - 32 mEq/L [facility] Blood specimen (specimen) 01/10/2014 5:39 EDT 01/10/2014 7:23 EDT Abdiaziz Cruz MD CHEMISTRY & BLOOD GA S ORDERABLES Performing Organization Address [facility] Co de Phone Number [facility] [address] [place] [address] * CREATININE (01/10/2014 5:39 EDT) Creatinine 0.90 0.66 - 1.25 mg/dl [facility] GFR, Calculated >60 >60 ml/min/1.7 3m2 [facility] Blood specimen (specimen) 01/10/2014 5:39 EDT 01/10/2014 7:23 EDT Abdiaziz Cruz MD CHEMISTRY & BLOOD GA S ORDERABLES Performing Organization Address [facility] Co de Phone Number [facility] [address] [place] [address] * BUN (01/10/2014 5:39 EDT) BUN 20 10 - 26 mg/dl [facility] Blood specimen (specimen) 01/10/2014 5:39 EDT 01/10/2014 7:23 EDT Abdiaziz Cruz MD CHEMISTRY & BLOOD GA S ORDERABLES Performing Organization Address [facility] Co de Phone Number [facility] [address] [place] [address] * (ABNORMAL) HEMAGRAM (01/09/2014 21:34 EDT) WBC 3.98(L) 4.0 - 10.4 K/cmm [facility] RBC 3.17(L) 4.36 - 5.78 M/cmm [facility] Hemoglobin 9.2(L) 13.8 - 17.3 gm/dl [facility] HCT 27.3(L) 39.5 - 50.2 % [facility] MCV 86 81 - 95 fl [facility] MCH 29.0 27.6 - 33.0 pg [facility] MCHC 33.7 32.8 - 36.4 gm/dl [facility] PLT 146 141 - 320 K/cmm [facility] RDW-CV 21.0(H) 11.8 - 14.1 % [facility] Comment:2+ Anisocytosis Blood specimen (specimen) 01/09/2014 21:34 EDT 01/09/2014 21:44 EDT Abdiaziz Cruz MD HEMATOLOGY & PF4 ORD ERABLES Performing Organization Address [facility] Co de Phone Number [facility] [address] [place] [address] * (ABNORMAL) HEMAGRAM (01/09/2014 16:52 EDT) WBC 3.45(L) 4.0 - 10.4 K/cmm [facility] RBC 2.85(L) 4.36 - 5.78 M/cmm [facility] Hemoglobin 8.2(L) 13.8 - 17.3 gm/dl [facility] HCT 24.7(L) 39.5 - 50.2 % [facility] MCV 87 81 - 95 fl [facility] MCH 28.9 27.6 - 33.0 pg [facility] MCHC 33.3 32.8 - 36.4 gm/dl [facility] PLT 120(L) 141 - 320 K/cmm [facility] RDW-CV 21.4(H) 11.8 - 14.1 % [facility] Comment:2+ Anisocytosis Blood specimen (specimen) 01/09/2014 16:52 EDT 01/09/2014 17:07 EDT Ming Cottrell MD HEMATOLOGY & PF4 OR DERABLES [facility] [address] [place] [address] * (ABNORMAL) HEMAGRAM (01/09/2014 14:02 EDT) WBC 3.17(L) 4.0 - 10.4 K/cmm [facility] RBC 2.74(L) 4.36 - 5.78 M/cmm [facility] Hemoglobin 8.0(L) 13.8 - 17.3 gm/dl [facility] HCT 23.5(L) 39.5 - 50.2 % [facility] MCV 86 81 - 95 fl [facility] MCH 29.3 27.6 - 33.0 pg [facility] MCHC 34.2 32.8 - 36.4 gm/dl [facility] PLT 120(L) 141 - 320 K/cmm [facility] RDW-CV 21.5(H) 11.8 - 14.1 % [facility] Comment:2+ Anisocytosis Blood specimen (specimen) 01/09/2014 14:02 EDT 01/09/2014 14:24 EDT Abdiaziz Cruz MD HEMATOLOGY & PF4 ORD [place] Performing Organization Address [facility] de Phone Number [facility] [address] [place] [address] * (ABNORMAL) HEMAGRAM (01/09/2014 9:04 EDT) WBC 3.78(L) 4.0 - 10.4 K/cmm [facility] RBC 2.84(L) 4.36 - 5.78 M/cmm [facility] Hemoglobin 8.2(L) 13.8 - 17.3 gm/dl [facility] HCT 24.3(L) 39.5 - 50.2 % [facility] MCV 86 81 - 95 fl [facility] MCH 28.9 27.6 - 33.0 pg [facility] MCHC 33.8 32.8 - 36.4 gm/dl [facility] PLT 130(L) 141 - 320 K/cmm [facility] RDW-CV 21.8(H) 11.8 - 14.1 % [facility] Comment:2+ Anisocytosis Blood specimen (specimen) 01/09/2014 9:04 EDT 01/09/2014 9:14 EDT Belle Montano MD HEMATOLOGY & PF4 ORD ERABLES Performing Organization Address [facility] Co de Phone Number [facility] [address] [place] [address] * CREATININE (01/09/2014 9:04 EDT) Creatinine 0.86 0.66 - 1.25 mg/dl [facility] GFR, Calculated >60 >60 ml/min/1.7 3m2 [facility] Blood specimen (specimen) 01/09/2014 9:04 EDT 01/09/2014 9:14 EDT Belle Montano MD CHEMISTRY & BLOOD GA S ORDERABLES Performing Organization Address City/[facility] Co de Phone Number [facility] [address] [place] [address] * (ABNORMAL) BUN (01/09/2014 9:04 EDT) BUN 28(H) 10 - 26 mg/dl [facility] Blood specimen (specimen) 01/09/2014 9:04 EDT 01/09/2014 9:14 EDT Belle Montano MD CHEMISTRY & BLOOD GA S ORDERABLES Performing Organization Address [facility] Co de Phone Number [facility] [address] [place] [address] * (ABNORMAL) ELECTROLYTES (01/09/2014 9:04 EDT) Sodium 140 136 - 145 mEq/L [facility] Potassium 3.9 3.5 - 5.0 mEq/L [facility] Chloride 112(H) 96 - 110 mEq/L [facility] CO2 23(L) 24 - 32 mEq/L [facility] Blood specimen (specimen) 01/09/2014 9:04 EDT 01/09/2014 9:14 EDT Belle Montano MD CHEMISTRY & BLOOD GA S ORDERABLES Performing Organization Address [facility] Co de Phone Number [facility] [address] [place] [address] * (ABNORMAL) HEMAGRAM (01/09/2014 2:02 EDT) WBC 5.27 4.0 - 10.4 K/cmm [facility] RBC 2.99(L) 4.36 - 5.78 M/cmm [facility] Hemoglobin 8.6(L) 13.8 - 17.3 gm/dl [facility] HCT 25.7(L) 39.5 - 50.2 % [facility] MCV 86 81 - 95 fl [facility] MCH 28.9 27.6 - 33.0 pg [facility] MCHC 33.6 32.8 - 36.4 gm/dl [facility] PLT 150 141 - 320 K/cmm [facility] RDW-CV 22.1(H) 11.8 - 14.1 % [facility] Comment:2+ Anisocytosis Blood specimen (specimen) 01/09/2014 2:02 EDT 01/09/2014 2:09 EDT Joe Do MD HEMATOLOGY & PF4 ORDERABLES [facility] [address] [place] [address] * PROCEDURE REPORTS - SCANNED (01/09/2014 0:39 EDT) 01/09/2014 0:39 EDT Narrative 01/09/2014 1:54 EDT Procedure Note NUCLEAR REACTOR OPERATOR, SCAN 2 - 01/09/2014 0:39 EDT Scan 2 Geothermal Electrical Engineer PROCEDURE/MINOR TY GICAL ORDERABLES * (ABNORMAL) HEMAGRAM (01/08/2014 21:28 EDT) WBC 5.95 4.0 - 10.4 K/cmm [facility] RBC 3.10(L) 4.36 - 5.78 M/cmm [facility] Hemoglobin 8.9(L) 13.8 - 17.3 gm/dl [facility] HCT 26.6(L) 39.5 - 50.2 % [facility] MCV 86 81 - 95 fl [facility] MCH 28.9 27.6 - 33.0 pg [facility] MCHC 33.6 32.8 - 36.4 gm/dl [facility] PLT 153 141 - 320 K/cmm [facility] RDW-CV 21.3(H) 11.8 - 14.1 % [facility] Comment:2+ Anisocytosis Blood specimen (specimen) 01/08/2014 21:28 EDT 01/08/2014 21:40 EDT Abdiaziz Cruz MD HEMATOLOGY & PF4 ORD ERABLES [facility] [address] [place] [address] * PREPARE RED BLOOD CELLS (01/08/2014 12:30 EDT) Product Code E0685 -3 Apheresis RED BLOOD CELLS, Leukocytes Reduced [facility] Donor Number [id number] [facility] Unit ABO O [facility] Rh POS [facility] Cross Match Interp Compatible [facility] Unit Status Released From [facility] BLOOD [facility] 01/08/2014 12:3 0 EDT Provider Unknown BLOOD BANK ORDERABLE S [facility] * PREPARE RED BLOOD CELLS (01/08/2014 12:30 EDT) Product Code E0336 -1 RED BLOOD CELLS, Leukocytes Reduced [facility] Donor Number [id number] [facility] ABO A [facility] Rh POS [facility] Cross Match Interp Compatible [facility] Unit Status Released From [facility] BLOOD BANK 01/08/2014 12:3 0 EDT Provider Unknown BLOOD BANK ORDERABLE S [facility] * PREPARE RED BLOOD CELLS (01/08/2014 11:15 EDT) Product Code E0336 -1 RED BLOOD CELLS, Leukocytes Reduced [facility] Donor Number [id number] [facility] ABO A [facility] Unit Rh POS [facility] Cross Match Interp Compatible [facility] Unit Status Released From [facility] BLOOD BANK 01/08/2014 11:1 5 EDT Provider Unknown BLOOD BANK ORDERABLE S Performing Organization Address [facility]/ZIP Co de Phone Number [facility] BLOOD BANK * PREPARE RED BLOOD CELLS (01/08/2014 11:15 EDT) Product Code E0336 -1 RED BLOOD CELLS, Leukocytes Reduced [facility] Donor Number [id number] [facility] Unit ABO A [facility] Unit Rh POS [facility] Cross Match Interp Compatible [facility] Unit Status Released From [facility] BLOOD [facility] Blood specimen (specimen) 01/08/2014 11:15 EDT Karrie Rose MD BLOOD BANK ORDERABLE S Performing Organization Address [facility] Co de Phone Number [facility] BLOOD [facility] * ANTIBODY IDENTIFICATION (01/08/2014 10:58 EDT) Antibody Identification Anti-E Anti-c (joseph) [facility] 01/08/2014 10:5 8 EDT Provider Unknown BLOOD BANK TESTS Performing Organization Address [facility]/ZIP Co de Phone Number [facility] * DIFFERENTIAL (01/08/2014 9:36 EDT) % Neutrophils 65.3 45.5 - 79.7 % [facility] % Lymphocytes 22.5 15.0 - 46.8 % [facility] % Monocytes 9.9 1.8 - 12.0 % [facility] % Eosinophils 1.2 0.6 - 6.9 % [facility] % Basophils 1.1 0.2 - 1.4 % [facility] ABS Neutrophils 4.85 2.20 - 8.85 K/cmm [facility] ABS Lymphs 1.67 1.09 - 3.30 K/cmm [facility] ABS Monocytes 0.74 0.1 - 0.8 K/cmm [facility] ABS Eosinophils 0.09 0.03 - 0.61 K/cmm [facility] ABS Basophils 0.08 0.01 - 0.11 K/cmm [facility] Type of Diff: Automated [facility] 01/08/2014 9:36 EDT 01/08/2014 9:50 EDT Zac Morillo MD HEMATOLOGY & PF4 ORD ERABLES Performing Organization Address City/[facility] Co de Phone Number [facility] [address] [place] [address] * (ABNORMAL) HEMAGRAM (01/08/2014 9:36 EDT) WBC 7.42 4.0 - 10.4 K/cmm [facility] RBC 4.15(L) 4.36 - 5.78 M/cmm [facility] Hemoglobin 12.1(L) 13.8 - 17.3 gm/dl [facility] HCT 35.9(L) 39.5 - 50.2 % [facility] MCV 87 81 - 95 fl [facility] MCH 29.1 27.6 - 33.0 pg [facility] MCHC 33.7 32.8 - 36.4 gm/dl [facility] PLT 281 141 - 320 K/cmm [facility] RDW-CV 21.5(H) 11.8 - 14.1 % [facility] Comment:2+ Anisocytosis 01/08/2014 9:36 EDT 01/08/2014 9:50 EDT Zac Morillo MD HEMATOLOGY & PF4 ORD [employer] Performing Organization Address City/[facility] Co de Phone Number [facility] [address] [place] [address] * (ABNORMAL) PROTIME (01/08/2014 9:36 EDT) Pro Time 12.9(H) 9.5 - 12.3 secs [facility] I.N.R. 1.2(H) 0.9 - 1.1 Ratio [facility] Comment: Moderate Intensity Coumadin INR = 2.0-3.0 Adjustments in anticoagulant therapy dose should be based upon the INR and NOT the Pro Time. Blood specimen (specimen) 01/08/2014 9:36 EDT 01/08/2014 9:50 EDT Zac Morillo MD HEMATOLOGY & PF4 ORD ERABLES Performing Organization Address [facility] de Phone Number [facility] [address] [place] [address] * MAGNESIUM (01/08/2014 9:36 EDT) Magnesium 1.8 1.7 - 2.8 mg/dl [facility] Blood specimen (specimen) 01/08/2014 9:36 EDT 01/08/2014 9:50 EDT Zac Morillo MD CHEMISTRY & BLOOD GA S ORDERABLES Performing Organization Address [facility] Phone Number [facility] [address] [place] [address] * (ABNORMAL) HEPATIC FUNCTION PANEL (ALB,ALK PHOS,ALT,AST,DBIL,TOT MARVEL,TOT PROT) (01/08/2014 9:36 EDT) Albumin 3.4 3.4 - 4.9 g/dl [facility] Total Protein 6.6 6.5 - 8.3 g/dl [facility] Total Alkaline Phosphatase 77 38 - 126 U/L [facility] ALT 82(H) 21 - 72 U/L [facility] AST 84(H) 15 - 46 U/L [facility] Unconjugated Bilirubin 0.6 0.0 - 1.1 mg/dl [facility] Conjugated Bilirubin 0.0 0.0 - 0.3 mg/dl [facility] Bilirubin, Total 0.9 <1.4 mg/dl [facility] Blood specimen (specimen) 01/08/2014 9:36 EDT 01/08/2014 9:50 EDT Zac Morillo MD CHEMISTRY & BLOOD GA S ORDERABLES Performing Organization Address City/[facility]/ZIP Co de Phone Number [facility] [address] [place] [address] * (ABNORMAL) SCREENING GLUCOSE (01/08/2014 9:36 EDT) Glucose, Screening 187(H) 70 - 100 mg/dl [facility] Blood specimen (specimen) 01/08/2014 9:36 EDT 01/08/2014 9:50 EDT Zac Morillo MD CHEMISTRY & BLOOD GA S ORDERABLES Performing Organization Address [facility] Co de Phone Number [facility] [address] [place] [address] * CREATININE (01/08/2014 9:36 EDT) Creatinine 0.90 0.66 - 1.25 mg/dl [facility] GFR, Calculated >60 >60 ml/min/1.7 3m2 [facility] Blood specimen (specimen) 01/08/2014 9:36 EDT 01/08/2014 9:50 EDT Zac Morillo MD CHEMISTRY & BLOOD GA S ORDERABLES Performing Organization Address [facility] Co de Phone Number [facility] [address] [place] [address] * (ABNORMAL) BUN (01/08/2014 9:36 EDT) BUN 45(H) 10 - 26 mg/dl [facility] Blood specimen (specimen) 01/08/2014 9:36 EDT 01/08/2014 9:50 EDT Zac Morillo MD CHEMISTRY & BLOOD GA S ORDERABLES Performing Organization Address [facility] Co de Phone Number [facility] [address] [place] [address] * (ABNORMAL) ELECTROLYTES (01/08/2014 9:36 EDT) Sodium 142 136 - 145 mEq/L [facility] Potassium 5.1(H) 3.5 - 5.0 mEq/L [facility] Chloride 108 96 - 110 mEq/L [facility] CO2 24 24 - 32 mEq/L [facility] Blood specimen (specimen) 01/08/2014 9:36 EDT 01/08/2014 9:50 EDT Zac Morillo MD CHEMISTRY & BLOOD GA S ORDERABLES [facility] [address] [place] [address] * TYPE AND SCREEN (01/08/2014 9:35 EDT) ABO A [facility] Rh Factor Positive [facility] Antibody Screen Positive [facility] Comment:SPECIMEN EXPIRES AT 23:59 ON 01/11/2014 Blood specimen (specimen) 01/08/2014 9:35 EDT Zac Morillo MD BLOOD BANK TESTS Performing Organization Address City/[facility]/ZIP Co de Phone Number [facility] documented in this encounter Visit Diagnoses Diagnosis GI bleed- Primary Hemorrhage of gastrointestinal tract, unspecified 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 Chronic hepatitis C without mention of hepatic coma Portal hypertensive gastropathy (HCC-CMS) Other specified disorder of stomach and duodenum Pancytopenia (HCC-CMS) Other pancytopenia 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 Chronic hepatitis C without mention of hepatic coma documented in this encounter Admitting Diagnoses Diagnosis 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 Chronic hepatitis C without mention of hepatic coma documented in this encounter Administered Medications Inactive Administered Medications - up to 3 most recent administrations Medication Order MAR Action Action Date Dose Rate Site acetaminophen (TYLENOL) tablet 500 mg 500 mg, oral, EVERY 6 HOURS PRN, Starting on Tue01/09/14 at 0953, Until 01/12/14 at 1550, Pain, Routine Given 01/12/2014 2:04 EDT 500 mg Given 01/11/2014 12:22 EDT 650 mg carvedilol (COREG) tablet 6.25 mg 6.25 mg, oral, 2 TIMES DAILY WITH BREAKFAST & DINNER, First dose on Tue01/08/14 at 1830, Until Discontinued, STAT Given 01/09/2014 7:53 EDT 6.25 mg carvedilol (COREG) tablet 6.25 mg 6.25 mg, oral, 2 TIMES DAILY WITH BREAKFAST & DINNER, First dose (after last modification) on Tue01/10/14 at 0800, Until Discontinued, STAT Given 01/10/2014 10:50 EDT 6.25 mg carvedilol (COREG) tablet 6.25 mg 6.25 mg, oral, 2 TIMES DAILY WITH BREAKFAST & DINNER, First dose (after last modification) on Tue01/10/14 at 1700, Until Discontinued, STAT Given 01/12/2014 8:08 EDT 6.25 mg Given 01/11/2014 16:58 EDT 6.25 mg Given 01/11/2014 8:46 EDT 6.25 mg cefTRIAXone (ROCEPHIN) 1,000 mg in sodium chloride 0.9 % 50 mL IVPB 1,000 mg, intravenous, Administer over 30 Minutes, DAILY, 7 doses, First dose on Tue01/08/14 at 2014, Last dose on Tue01/14/14 at 0900, STAT Given 01/12/2014 8:08 EDT 1,000 mg Given 01/11/2014 8:44 EDT 1,000 mg Given 01/10/2014 10:49 EDT 1,000 mg cyanocobalamin tablet 1,000 mcg 1,000 mcg, oral, DAILY, First dose on Tue01/10/14 at 1045, Until Discontinued, Routine Given 01/12/2014 8:08 EDT 1,000 mcg Given 01/11/2014 8:44 EDT 1,000 mcg Given 01/10/2014 10:51 EDT 1,000 mcg folic acid (FOLVITE) tablet 1 mg 1 mg, oral, DAILY, First dose on Tue01/08/14 at 2015, Until Discontinued, STAT Given 01/12/2014 8:08 EDT 1 mg Given 01/11/2014 8:44 EDT 1 mg Given 01/10/2014 10:50 EDT 1 mg meperidine (PF) (DEMEROL) 100 mg/mL injection 25-200 mg 25-200 mg, intravenous, ONCE PRN, 1 dose, Starting on Tue01/08/14 at 1513, Until Tue01/08/14 at 1526, Other, sedation, STAT, Intraprocedure Given 01/08/2014 15:26 EDT 75 mg meperidine (PF) (DEMEROL) 100 mg/mL injection 25-200 mg 25-200 mg, intravenous, ONCE PRN, 1 dose, Starting on Dayan 01/10/14 at 0815, Until Dayan 01/10/14 at 0832, Other, sedation, Routine, Intraprocedure Given 01/10/2014 8:32 EDT 75 mg midazolam (PF) (VERSED) 1 mg/mL injection 1-10 mg 1-10 mg, intravenous, ONCE PRN, 1 dose, Starting on Tue01/08/14 at 1513, Until Tue01/08/14 at 1526, Sedation, STAT, Intraprocedure Given 01/08/2014 15:26 EDT 4 mg midazolam (PF) (VERSED) 1 mg/mL injection 1-10 mg 1-10 mg, intravenous, ONCE PRN, 1 dose, Starting on Dayan 01/10/14 at 0815, Until Dayan 01/10/14 at 0832, Sedation, Routine, Intraprocedure Given 01/10/2014 8:32 EDT 4 mg midazolam (PF) (VERSED) 1 mg/mL injection 1.5 mg 1.5 mg, intravenous, NOW X1, 1 dose, On Tue01/08/14 at 1130, STAT Given 01/08/2014 10:45 EDT 1.5 mg midazolam (PF) (VERSED) 1 mg/mL injection 1 dose, Starting on Tue01/08/14 at 1038, Until Tue01/08/14 at 1045 octreotide (SANDOSTATIN) 50 mcg in sodium chloride (NS) 0.9 % 50 mL IVPB 50 mcg, intravenous, Administer over 15 Minutes, NOW X1, 1 dose, On Tue01/08/14 at 0945, STAT Given 01/08/2014 10:35 EDT 50 mcg octreotide (SANDOSTATIN) 500 mcg in sodium chloride (NS) 0.9 % 250 mL infusion 50 mcg/hr (rounded to 25 mL/hr), intravenous, CONTINUOUS, Starting on Tue01/08/14 at 0945, Until Tue01/08/14 at 1818, STAT Rate Documented 01/08/2014 15:42 EDT 50 mcg/hr 25 mL/hr New Bag 01/08/2014 10:35 EDT 50 mcg/hr 25 mL/hr ondansetron (PF) (ZOFRAN) injection 4 mg 4 mg, intravenous, EVERY 4 HOURS PRN, Starting on Tue01/09/14 at 1014, Until Tue01/12/14 at 1550, Nausea, Routine Given 01/10/2014 15:25 EDT 4 mg pantoprazole (PROTONIX) injection 40 mg 40 mg, intravenous, 2 TIMES DAILY, First dose on Tue01/08/14 at 2100, Until Discontinued, STAT Given 01/11/2014 8:44 EDT 4 0 mg Given 01/10/2014 20:40 EDT 40 mg Given 01/10/2014 10:49 EDT 40 mg pantoprazole (PROTONIX) injection 80 mg 80 mg, intravenous, NOW X1, 1 dose, On Tue01/08/14 at 0945, STAT Given 01/08/2014 10:30 EDT 80 mg pantoprazole (PROTONIX) tablet 40 mg 40 mg, oral, 2 TIMES DAILY, First dose on Tue01/11/14 at 2115, Until Discontinued, Routine Given 01/12/2014 8:08 EDT 40 mg Given 01/11/2014 20:47 EDT 40 mg PEG 3350-Electrolytes (GoLYTELY) oral solution 1 L 1 L, oral, EVERY HOUR, 4 doses, First dose on Tue01/09/14 at 2000, Last dose on Tue01/09/14 at 2300, Routine Given 01/09/2014 23:50 EDT 1 L Given 01/09/2014 22:19 EDT 1 L Given 01/09/2014 20:22 EDT 1 L phytonadione (MEPHYTON) tablet 5 mg 5 mg, oral, NOW X1, 1 dose, On Tue01/09/14 at 1000, Routine Given 01/09/2014 10:17 EDT 5 mg sodium chloride 0.9 % (NS) infusion at 150 mL/hr, intravenous, CONTINUOUS, Starting on Tue01/08/14 at 1200, Until Tue01/08/14 at 2344, STAT New Bag 01/08/2014 17:06 EDT 150 mL/ hr New Bag 01/08/2014 11:45 EDT 150 mL/hr sodium chloride 0.9 % (NS) infusion at 150 mL/hr, 1,000 mL, intravenous, CONTINUOUS, Starting on Tue01/09/14 at 1715, Until Tue01/09/14 at 2349, Routine New Bag 01/09/2014 17:10 EDT 1,000 mL 150 mL/h r sodium chloride 0.9 % BOLUS 1,000 mL 1,000 mL, intravenous, NOW X1, 1 dose, On Tue01/08/14 at 0945, STAT Given 01/08/2014 10:14 EDT 1,000 mL sodium chloride 0.9 % BOLUS 1,000 mL 1,000 mL, intravenous, NOW X1, 1 dose, On Tue01/08/14 at 0945, STAT Given 01/08/2014 10:17 EDT 1,000 mL thiamine (VITAMIN B1) tablet 100 mg 100 mg, oral, DAILY, First dose on Dayan 01/10/14 at 1045, Until Discontinued, Routine Given 01/12/2014 8:08 EDT 100 mg Given 01/11/2014 8:44 EDT 100 mg Given 01/10/2014 10:51 EDT 100 mg documented in this encounter Discontinued Medications Medication Sig Discontinue Reason Start Date End Da te pantoprazole (PROTONIX) 40 mg tablet Take 40 mg by mouth daily. 01/12/2014 documented as of this encounter Active and Recently Administered Medications Times are shown in EDT. Scheduled Medication Order 01/10/2014 01/11/2014 01/12/2014 carvedilol (COREG) tablet 6.25 mg (CANCELED) 6.25 mg, oral, 2 TIMES DAILY WITH BREAKFAST & DINNER, First dose (after last modification) on Dayan 01/10/14 at 0800, Until Discontinued, STAT 1050 (Given - Provider: Ana Vargas RN) carvedilol (COREG) tablet 6.25 mg (CANCELED) 6.25 mg, oral, 2 TIMES DAILY WITH BREAKFAST & DINNER, First dose (after last modification) on Dayan 01/10/14 at 1700, Until Discontinued, STAT 1812 (Given - Provider: Ana Vargas RN) 0846 (Given - Provider: Elly Ricci RN)1658 (Given - Provider: Elly Ricci RN) 0808 (Given - Provider: Elly Ricci RN) cefTRIAXone (ROCEPHIN) 1,000 mg in sodium chloride 0.9 % 50 mL IVPB (CANCELED) 1,000 mg, intravenous, Administer over 30 Minutes, DAILY, 7 doses, First dose on Tue01/08/14 at 2015, Last dose on Tue01/14/14 at 0900, STAT 1049 (Given - Provider: Ana Vargas RN) 0844 (Given - Provider: Elly Ricci RN) 0808 (Given - Provider: Elly Ricci RN) cyanocobalamin tablet 1,000 mcg (CANCELED) 1,000 mcg, oral, DAILY, First dose on Tue01/10/14 at 1045, Until Discontinued, Routine 1051 (Given - Provider: Ana Vargas RN) 0844 (Given - Provider: Elly Ricci RN) 0808 (Given - Provider: Elly Ricci RN) folic acid (FOLVITE) tablet 1 mg (CANCELED) 1 mg, oral, DAILY, First dose on Tue01/08/14 at 2015, Until Discontinued, STAT 1050 (Given - Provider: Ana Vargas RN) 0844 (Given - Provider: Elly Ricci RN) 0808 (Given - Provider: Elly Ricci RN) pantoprazole (PROTONIX) injection 40 mg (CANCELED) 40 mg, intravenous, 2 TIMES DAILY, First dose on Tue01/08/14 at 2100, Until Discontinued, STAT 1049 (Given - Provider: Ana Vargas RN)2040 (Given - Provider: Venecia Alamo RN) 0844 (Given - Provider: Elly Ricci RN) pantoprazole (PROTONIX) tablet 40 mg (CANCELED) 40 mg, oral, 2 TIMES DAILY, First dose on Tue01/11/14 at 2115, Until Discontinued, Routine 2047 (Given - Provider: Venecia Alamo RN) 0808 (Given - Provider: Elly Ricci RN) thiamine (VITAMIN B1) tablet 100 mg (CANCELED) 100 mg, oral, DAILY, First dose on Tue14 at 1045, Until Discontinued, Routine 1051 (Given - Provider: Ana Vargas, RN) 0844 (Given - Provider: Elly Ricci, MELY) 0808 (Given - Provider: Elly Ricci RN) Continuous Medication Order 01/10/2014 01/11/2014 01/12/2014 sodium chloride 0.9 % (NS) infusion at 150 mL/hr, 1,000 mL, intravenous, CONTINUOUS, Starting on Tue01/09/14 at 1715, Until Tue01/09/14 at 2349, Routine PRN Medication Order 01/10/2014 01/11/2014 01/12/2014 acetaminophen (TYLENOL) tablet 500 mg (CANCELED) 500 mg, oral, EVERY 6 HOURS PRN, Starting on Tue01/09/14 at 0953, Until 01/12/14 at 1550, Pain, Routine 1222 (Given - Provider: Elly Ricci RN) 0204 (Given - Provider: Venecia Alamo RN) meperidine (PF) (DEMEROL) 100 mg/mL injection 25-200 mg (COMPLETED) 25-200 mg, intravenous, ONCE PRN, 1 dose, Starting on Dayan 01/10/14 at 0815, Until Dayan 01/10/14 at 0832, Other, sedation, Routine, Intraprocedure 0832 (Given - Provider: Geovanna Upton RN) midazolam (PF) (VERSED) 1 mg/mL injection 1-10 mg (COMPLETED) 1-10 mg, intravenous, ONCE PRN, 1 dose, Starting on Dayan 01/10/14 at 0815, Until Dayan 01/10/14 at 0832, Sedation, Routine, Intraprocedure 0832 (Given - Provider: Geovanna Upton RN) ondansetron (PF) (ZOFRAN) injection 4 mg (CANCELED) 4 mg, intravenous, EVERY 4 HOURS PRN, Starting on Tue01/09/14 at 1014, Until 01/12/14 at 1550, Nausea, Routine 1525 (Given - Provider: Ana Vargas, MELY) documented in this encounter Orders Medications Ordered That Jamison ht Not Have Been Administered Count Last Ordered Date First Ordered Date sodium chloride 0.9 % (NS) infusion 2 01/1001/09/2014 lidocaine (XYLOCAINE) 2 % viscous solution 1 01/08/2014 meperidine (PF) (DEMEROL) 10 0 mg/mL injection 1 01/08/2014 midazolam (PF) (VERSED) 1 mg/mL injection 1 01/08/2014 nadolol (CORGARD) tablet 20 mg 1 01/08/2014 Diet Count Last Ordered Date First Orde red Date DISCHARGE DIET 1 01/12/2014 Nursing Count Last Ordered Date First Orde red Date ACTIVITY INSTRUCTIONS 1 01/12/2014 BATHING INSTRUCTIONS 1 01/12/2014 DRIVING INSTRUCTIONS 1 01/12/2014 CARDIAC MONITORING 1 01/08/2014 CONTRAINDICATION TO ANTICOAG ULATION THERAPY 1 01/08/2014 INSERT PERIPHERAL IV 2 01/08/2014 NASOGASTRIC TUBE INSERTION 1 01/08/2014 PULSE OXIMETRY 1 01/08/2014 IV Count Last Ordered Date First Orde red Date IV REQUEST 1 01/09/2014 Admission Count Last Ordered Date First Orde red Date STATUS: ED REQUEST FOR OBSER VATION SERVICES 1 01/08/2014 STATUS: INPATIENT ACUTE ADMISSION 1 014 Transfer Count Last Ordered Date First Orde red Date NOTIFY PPS OF DISCHARGE COMPLETE 1 01/13/20 14 PPS NOTIFICATION OF PATIENT ARRIVAL ON UNIT 4 01/10/2014 01/08/2014 UR PATIENT TYPE CHANGE 1 01/08/2014 Discharge Count Last Ordered Date First Orde red Date DISCHARGE PATIENT 1 01/12/2014 Legal Count Last Ordered Date First Orde red Date MISCELLANEOUS DISCHARGE INSTRUCTIONS 1 07/2013 documented in this encounter Care Teams Electromechanical Technician Relationship Specialty Start Date End Date Kamala Rosado MD [address] [address] PCP - General 10/05/13 10/19/15 documented as of this encounter
--- OUTSIDE RECORDS SUMMARY | 2023-12-21 12:11 | XMS_ITS | Encounter Summary ---
Author Organization [facility] Address [address] [place] [address] Care Team Providers Care Manual Arts Therapist Name Role Phone Barbra Vaughn MD Primary Care Provider [phone] Reason for Visit * Reason Onset Date Comments Other 03/29/2013 Encounter Details Date Type Department Care Team (Late st Contact Info) Description 03/29/2013 Telephone [facility] Gastroenterology - [address] [address] Eden Toscano RN Other Social History Tobacco Use Types Packs/Day [...] Telephone Encounter - Eden Toscano RN - 03/29/2013 [id number] EST Patient states he was asked by his PCP to call to be treated for Hep C soon because his HCV PCR has increased. reviewed his last note on 03/14/13 & his recent result letter & recommends the patient wait for interferon- free therapy ,due to his previous treatment response & side effects from interferon. He was advised to continue to monitor the [facility] fornew updates on these treatments. He verbalized understanding & is satisfied with this plan. documented in this encounter Plan of Treatment Upcoming Encounters Date Type Department Care Team (Late st Contact Info) Description 01/23/2024 10:00 EDT Office Visit [facility] General Surgery - [facility] [address] [place], [place] [address] Bon Gutierrez MD [address] [facility], [address] [place] [phone] 09/10/2024 10:00 EDT Appointment Shaina Bergeron [id number] [place], [place] [id number] documented as of this encounter Visit Diagnoses Not on filedocumented in this encounter Care Teams Manual Arts Therapist Relationship Specialty Start Date End Date Barbra Vaughn MD [address] [facility] [address] [place] [address] PCP - General 02/27/13 10/04/13 documented as of this encounter
--- OUTSIDE RECORDS SUMMARY | 2023-12-21 12:11 | XMS_ITS | Encounter Summary ---
Author Organization [facility] Address [address] [place] [address] Care Team Providers Care Diagrammer And Seamer Name Role Phone Barbra Vaughn MD Primary Care Provider [phone] Encounter Details Date Type Department Care Team (Late st Contact Info) Description 03/14/2013 Phlebotomy Only [address] [address] [place], Outpatient Chronic hepatitis C without mention of hepatic coma; Cirrhosis (CMS-HCC) (HCC-CMS) Social History Tobacco Use Types [...] Info) Description 01/23/2024 10:00 EDT Office Visit [facility] General Surgery [address] [address] Bon Gutierrez MD [address] [facility], [address] [place] [phone] 09/10/2024 10:00 EDT Appointment Shaina Mejia [address] [place], [place] [address] documented as of this encounter Procedures Procedure Name Priority Date/Time Associated Diagnosis Comments HCV RNA QUANT WITH REFLEX TO GENOTYPE Routine 03/14/2013 14:34 EST Chronic hepatitis C without mention of hepatic coma Cirrhosis (CMS-HCC) (HCC-CMS) HEPATITIS A TOTAL ANTIBODY W REFLEX Routine 03/14/2013 14:34 EST Chronic hepatitis C without mention of hepatic coma Cirrhosis (CMS-HCC) (HCC-CMS) HEPATITIS B SURFACE ANTIBODY Routine 03/14/2013 14:34 EST Chronic hepatitis C without mention of hepatic coma Cirrhosis (CMS-HCC) (HCC-CMS) HEPATITIS B SURFACE ANTIGEN Routine 03/14/2013 14:34 EST Chronic hepatitis C without mention of hepatic coma Cirrhosis (CMS-HCC) (HCC-CMS) PROTIME Routine 03/14/2013 14:34 EST Chronic hepatitis C without mention of hepatic coma Cirrhosis (CMS-HCC) (HCC-CMS) COMPREHENSIVE METABOLIC PANEL (CMP) Routine 03/14/2013 14:34 EST Chronic hepatitis C without mention of hepatic coma Cirrhosis (CMS-HCC) (HCC-CMS) documented in this encounter Results * HCV RNA QUANT WITH REFLEX TO GENOTYPE (03/14/2013 14:34 EST) HCV RNA Detect Quant 1,582,168 IU/mL MIKE DO Comment: Reference Range: ??Undetected The quantification range of this assay is 15 IU/mL to 100,000,000 IU/mL. Testing was performed by the Mili Ampliprep/Mili TaqMan HCV v2.0 ([employer] Note new version HCV v2.0 in use 01/11/2013. Blood specimen (specimen) 03/14/2013 14:34 EST 03/14/2013 14:51 EST Brody Duran MD PhD CHEMISTRY & BLO OD GAS ORDERABLES [facility] [address] [place] [address] * HEPATITIS B SURFACE ANTIGEN (03/14/2013 14:34 EST) Hepatitis B Surface Ag Negative [facility] Comment:Reference Range: Neg ative Blood specimen (specimen) 03/14/2013 14:34 EST 03/14/2013 14:51 EST Brody Duran MD PhD CHEMISTRY & BLO OD GAS ORDERABLES Performing Organization Address [facility] Phone Number [facility] [address] [place] [address] * HEPATITIS B SURFACE ANTIBODY (03/14/2013 14:34 EST) Hepatitis B Surface Antibody REACTIVE [facility] Comment: Reference Range: Unvaccinated: ??Nonreactive Vaccinated: ??Reactive Hepatitis B Antibody Quantitative 105.2 mIU/mL [facility] Comment: Patient is presumed to be immune to infection with HBV. Reference Range: Reactive: ??>=10.0 mIU/mL Nonreactive: ??<10.0 mIU/mL Blood specimen (specimen) 03/14/2013 14:34 EST 03/14/2013 14:51 EST Brody Duran MD PhD CHEMISTRY & BLO OD GAS ORDERABLES Performing Organization Address [facility] Phone Number [facility] [address] [place] [address] * HEPATITIS A TOTAL ANTIBODY (03/14/2013 14:34 EST) Hep A Antibody Negative [facility] Comment:Reference Range: Neg ative Blood specimen (specimen) 03/14/2013 14:34 EST 03/14/2013 14:51 EST Brody Duarn MD PhD CHEMISTRY & BLO OD GAS ORDERABLES Performing Organization Address [facility] Phone Number [facility] [address] [place] [address] * PROTIME (03/14/2013 14:34 EST) Pro Time 12.0 9.5 - 13.1 secs [facility] I.N.R. 1.0 0.9 - 1.1 Ratio [facility] Comment: Moderate Intensity Coumadin INR = 2.0-3.0 Adjustments in anticoagulant therapy dose should be based upon the INR and NOT the Pro Time. Blood specimen (specimen) 03/14/2013 14:34 EST 03/14/2013 14:51 EST Brody Duran MD PhD HEMATOLOGY & PF 4 ORDERABLES [facility] [address] [place] [address] * (ABNORMAL) COMPREHENSIVE METABOLIC PANEL (CMP) (03/14/2013 14:34 EST) Potassium 4.1 3.5 - 5.0 mEq/L [facility] Sodium 141 136 - 145 mEq/L [facility] Chloride 106 96 - 110 mEq/L [facility] CO2 24 24 - 32 mEq/L [facility] Total Alkaline Phosphatase 112 38 - 126 U/L [facility] Bilirubin, Total 0.5 0.2 - 1.3 mg/dl [facility] AST 67(H) 15 - 46 U/L [facility] ALT 64 21 - 72 U/L [facility] Albumin 3.8 3.4 - 4.9 g/dl [facility] Total Protein 7.4 6.5 - 8.3 g/dl [facility] Creatinine 0.75 0.66 - 1.25 mg/dl [facility] GFR, Calculated >60 >60 ml/min/1.7 3m2 [facility] BUN 17 10 - 26 mg/dl [facility] Calcium 8.7 8.5 - 10.5 mg/dl [facility] Calculated Calcium 9.3 8.5 - 10.5 mg/dl [facility] Glucose, Serum 213(H) 70 - 100 mg/dl [facility] Fasting? Unknown [facility] Blood specimen (specimen) 03/14/2013 14:34 EST 03/14/2013 14:51 EST Brody Duran MD PhD CHEMISTRY & BLO OD GAS ORDERABLES [facility] [address] [place] [address] documented in this encounter Visit Diagnoses Diagnosis Chronic hepatitis C without mention of hepatic coma Cirrhosis (HCC-CMS) Cirrhosis of liver without mention of alcohol documented in this encounter Care Teams Diagrammer And Seamer Relationship Specialty Start Date End Date Barbra Vaughn MD [address] [place] [address] PCP - General 02/27/13 10/04/13 documented as of this encounter
--- OUTSIDE RECORDS SUMMARY | 2023-12-21 12:11 | XMS_ITS | Encounter Summary ---
Author Organization [facility] Address [address] [place] [address] Care Team Providers Care Soil Conservation Teacher Name Role Phone Barbra Vaughn MD Primary Care Provider [phone] Encounter Details Date Type Department Care Team (Latest Contact Info) Description 06/15/2013 13:30 EST - 06/15/2013 23:59 EST Hospital Encounter [facility] [place] [address] Discharge Disposition: Home or Self Care Social [...] Yes 06/15/2013 documented as of this encounter Medications at [...] 30 days. 60 Tab 0 06/16/2013 07/16/2013 pantoprazole (PROTONIX) 40 mg tabletIndications:Chron ic hepatitis C without mention of hepatic coma,Cirrhosis (HCC-CMS) Take 40 mg by mouth daily. 06/16/2013 traMADol (ULTRAM-ER) 100 mg tabletIndications:Chron ic hepatitis C without mention of hepatic coma,Cirrhosis (HCC-CMS) Take 100 mg by mouth daily as needed. 06/16/2013 documented as of this encounter Discharge Disposition Disposition Code Departure Means Destination Home or Self Residential documented in this encounter Plan of Treatment Upcoming Encounters Date Type Department Care Team (Late st Contact Info) Description 01/23/2024 10:00 EDT Office Visit [facility] General Surgery - [facility] [address] [place], [place] [phone] Bon Gutierrez MD [address] [facility], [address] [place] [phone] 09/10/2024 10:00 EDT Appointment Shaina Bergeron [address] [address] documented as of this encounter Visit Diagnoses Not on filedocumented in this encounter Care Teams Soil Conservation Teacher Relationship Specialty Start Date End Date Barbra Vaughn MD [address] [facility] [address] [place] [address] PCP - General 02/27/13 10/04/13 documented as of this encounter
--- OUTSIDE RECORDS SUMMARY | 2023-12-21 12:11 | XMS_ITS | Encounter Summary ---
Author Organization [facility] Address [address] [place] [address] Care Team Providers Care Model Photographers' Name Role Phone Barbra Vaughn MD Primary Care Provider [phone] Reason for Referral * Consult, Test and Treat (Routine/Next Available) - Closed Specialty Diagnoses / Procedures Referred By Contac t Referred To Contact Rehab Therapies Diagnoses Low back pain Scoliosis Lumbar radiculopathy Rosario Hutchison PA-C [address] [place] [address] Referral ID Status Reason Start Date Expiration Date V isits Requested Visits Authorized [id number] Closed Specialty Services Required 06/01/2013 1 1 Question Answer Reason for Request: AQUATIC THERAPY WITH TRANSITION TO LAND PT, LUMBAR STRETCHES, CORE STABILIZATION, POSTURAL SIKHISM * Radiology Services (Routine/Next Available) - Closed Specialty Diagnoses / Procedures Referred By Contac t Referred To Contact Diagnoses Scoliosis Procedures SCOLI 2 VIEW AP & LAT Rosario Hutchison PA-C [address] [place] [address] Referral ID Status Reason Start Date Expiration Date Visits Re quested Visits Authorized [id number] Closed 06/01/2013 1 1 * Radiology Services (Routine/Next Available) - Closed Specialty Diagnoses / Procedures Referred By Contac t Referred To Contact Diagnoses Low back pain Procedures L SPINE 2-3 VIEWS Rosario Hutchison PA-C [address] [place] [address] Referral ID Status Reason Start Date Expiration Date Visits Re quested Visits Authorized [id number] Closed 06/01/2013 1 1 Reason for Visit * Reason Comments Back Pain low Encounter Details Date Type Department Care Team (Latest Contact Info) Description 06/01/2013 12:[address] [facility] Spine Program - [address] [place] [address] Rosario Hutchison PA-C Low back pain (Primary Dx); Scoliosis; Lumbar radiculopathy Social History Tobacco Use Types Packs/Day Years [...] - Inhaled Oxygen Concentration - - Weight 83.9 kg (185 lb) 06/01/2013 1242 EST Height 162.6 cm (5' 4) 06/01/2013 1242 EST Body Mass Index 31.76 06/01/2013 1242 EST documented in this encounter Progress Notes * Rosario Hutchison PA - 06/01/2013 1309 EST Alonzo Urbina is being seen as a consultation from Dr. Vaughn. Chief Complaint Patient presents with ??? Back Pain low The primary encounter diagnosis was Low back pain. A diagnosis of Scoliosis was also pertinent to this visit. HPI Mr Urbina is a 58-year-old male with a history of a severe scoliosis, ended up undergoing back surgery in 1973, with Sanchez siva placement. The siva broke and then 1980, the siva was removed and hehad a bony fusion. He had good resolution of any discomfort until early 1999, when he developed left-sided lower back pain. He went for 3 or 4 [place]ural [place] There were helpful at first, but then they stopped working. He was eventually referred to a spine surgeon in the [place] area who offered him more surgeries, though he declined. He also at that time was experiencing intermittent whole leg numbness primarily occurring with s itting for long periods of time. Up until last year, he was taking OxyContin. He ended up overdosing, and was addicted on the medications, and finally was able to wean himself off. Then on May 17, he slipped and fell and now his back pain is much more severe and in the samelocation. It occurs throughout the left lumbar paraspinals into the left sacroiliac joint and glute. It is a constant pain, worse when he is sitting up, riding in a car or walking more than a half a mile, or using an exercise bike. He is also now experiencing constant leg numbness affecting the whole leg and into the whole foot. Lying down alleviates the pain as does using Tylenol #3. He does notthink he has ever used neuroleptics. He did physical therapy 20+ years ago. He has not seen a chiropractor or done any acupuncture. Patient Active Problem List Diagnosis ??? Chronic hepatitis C without mention of hepatic coma ??? Cirrhosis of liver Past Medical History Diagnosis Date ??? Anemia ??? Depression ??? Chronic kidney disease ??? Hepatitis C ??? Cirrhosis of liver ??? Esophageal varices ??? Chronic back pain ??? Leg numbness Past Surgical History Procedure Laterality Date ??? Esophageal varice ligation 2008 or 2009 ??? Hernia repair hiatal hernia ??? Back surgery 1973, 1980 History Substance Use Topics ??? Smoking status: Never Smoker ??? Smokeless tobacco: Never Used ??? Alcohol Use: No Family History Problem Relation Age of Onset ??? Cancer Mother ??? Diabetes Mother ??? Alcohol Abuse Father ??? Cancer Father ??? Cancer Sister ??? Crohn's Disease Sister ??? Diabetes Sister ??? Cancer Brother ??? Anesth Problems Brother ??? Cancer Sister ??? Anesth Problems Sister Current Outpatient Prescriptions Medication Sig Dispense Refill ??? acetaminophen-codeine (TYLENOL #3) 300-30 mg per tablet Take 1 Tab by mouth as needed for Pain. ??? FERROUS FUMARATE (IRON ORAL) Take by mouth. ??? FOLIC ACID ORAL Take 5 mg by mouth daily. ??? nadolol (CORGARD) 20 mg tablet Take 20 mg by mouth daily. ??? pantoprazole (PROTONIX) 40 mg tablet Take 40 mg by mouth daily. ??? traMADol (ULTRAM-ER) 100 mg tablet Take 100 mg by mouth daily as needed. No current facility-administered medications for this visit. Allergies Allergen Reactions ??? Ambien (Zolpidem) Sleep-driving Review of Systems Constitutional: Positive for activity change. HENT: Negative. Eyes: Negative. Respiratory: Negative. Cardiovascular: Negative. Gastrointestinal: Negative. Genitourinary: Negative. Musculoskeletal: Positive for back pain. Skin: Negative. Neurological: Positive for numbness. Psychiatric/Behavioral: Negative. Physical Exam Constitutional: He is oriented to person, place, and time. He appears well- developed and well-nourished. HENT: Head: Normocephalic and atraumatic. Eyes: EOM are normal. Cardiovascular: Normal rate and intact distal pulses. Pulmonary/Chest: Effort normal. Musculoskeletal: Palpable tenderness left lumbar paraspinals. Patient is able to walk on heels and toes without difficulty. 5/5 hip flexion, TA, EHL, peroneal strength b/l. Negative FABERS maneuver b/l. Int/ext rotation of b/l hips is fluid w/o significant restriction or pain elicited. Neurological: He is alert and oriented to person, place, and time. 1+ patellar and achilles reflexes b/l. Decreased sensation to light touch circumferential left leg.Neg Straight leg raise is negative b/l. Negative clonus. Babinski is downgoing. Skin: Skin is warm and dry. No rashes, lesions, or hair clare. Psychiatric: He has a normal mood and affect. Ortho Exam Neurologic Exam Mental Status Oriented to person, place, and time. Cranial Nerves CN III, IV, Extraocular motions are normal. Flexion and extension views show no significant change in sagittal alignment between flexion and extension. There is a marked retrolisthesis of L3 upon L4. There is the appearance of intervertebral fusion across all the lumbar levels and posterior elements. Due to the marked distortion anatomy, definitive evaluation of bony anatomy is not possible. Entire spine findings: 2 views. There is a severe levoscoliosis of the lumbar spine with an apex atthe L2-3 level. No segmentation anomalies are identified within the cervical or thoracic spine. Assessment/Plan: 58 old male with a severe lumbar scoliosis, a worsening of pain after a fall on May 17. He had this pain prior, though the severity was not as intense. Also, with more intermittent whole leg numbness now constant since his fall. With his severe scoliosis, he also has multilevel foraminal stenosis. His degenerative curve is likely the origin of his paraspinal and left-sided back pain, now worse since his most recent fall. He is really not interested in surgery to fix his scoliosis at this point. We did discuss conservative management including pool therapy with transitioning to a land physical therapy program. It would be helpful for them to do some postural restorationist and some core stabilization exercises. We also discussed the purpose of a trial of neuroleptics, which he may consider in the future. If his pain persists, then I would recommend a caudal epidural steroid injection to at least get him back to his baseline. He was in agreement with the above plan. We reviewed his imaging today, and he will follow up on an as-needed basis with activities as tolerated. Other Orders Placed This Visit Procedures ??? L SPINE 2-3 VIEWS ? ? SCOLI 2 VIEW AP & LAT documented in this encounter Plan of Treatment Upcoming Encounters Date Type Department Care Team (Late st Contact Info) Description 01/23/2024 10:[address] [facility] General Surgery - [address] [id number] Bon Gutierrez MD 111 [facility], [address] [place] [phone] 09/10/2024 10:00 EDT Appointment Shaina Bergeron Ultrasound [address] [place], [place] [address] Scheduled Referrals Name Type Priority Associated Diagnoses Orde r Schedule AMB CONSULT PHYSICAL THERAPY Outpatient Referral Routine Low back pain Scoliosis Lumbar radiculopathy Ordered: 06/01/2013 documented as of this encounter Procedures Procedure Name Priority Date/Time Associated Diagnosis Comments SCOLI 2 VIEW AP & LAT Routine 06/01/2013 13:23 EST Scoliosis L SPINE 2-3 VIEWS Routine 06/01/2013 13: 23 EST Low back pain documented in this encounter Results * SCOLI 2 VIEW AP & LAT (06/01/2013 13:23 EST) Anatomical Region Laterality Modality Other 06/01/2013 13:2 3 EST 06/04/2013 16:23 EST Narrative 06/04/2013 16:23 EST Plain film entire spine and lumbar spine History: Scoliosis and back pain Lumbar spine findings: Flexion and extension views show no significant change in sagittal alignment between flexion and extension. There is a marked retrolisthesis of L3 upon L4. There is the appearance of intervertebral fusion across all the lumbar levels and posterior elements. Due to the marked distortion anatomy, definitive evaluation of bony anatomy is not possible. Entire spine findings: 2 views. There is a severe levoscoliosis of the lumbar spine with an apex at the L2-3 level. Due to the severe distortion and posterior fusion material, I cannot definitively evaluate the lumbar spine. No segmentation anomalies are identified within the cervical or thoracic spine. The lungs are hypoinflated but otherwise clear. Conclusion: Due to the severe scoliosis, hypertrophic changes and fusion material, the fine bony detail of the lumbar spine cannot be evaluated. No acute fracture of the thoracic spine is identified. There is no significant change in sagittal alignment between flexion and extension within the lumbar spine. Procedure Note 06/04/2013 Plain film entire spine and lumbar spine History: Scoliosis and back pain Lumbar spine findings: Flexion and extension views show no significant change in sagittal alignment between flexion and extension. There is a marked retrolisthesis of L3 upon L4. There is the appearance of intervertebral fusion across all the lumbar levels and posterior elements. Due to the marked distortion anatomy, definitive evaluation of bony anatomy is not possible. Entire spine findings: 2 views. There is a severe levoscoliosis of the lumbar spine with an apex at the L2-3 level. Due to the severe distortion and posterior fusion material, I cannot definitively evaluate the lumbar spine. No segmentation anomalies are identified within the cervical or thoracic spine. The lungs are hypoinflated but otherwise clear. Conclusion: Due to the severe scoliosis, hypertrophic changes and fusion material, the fine bony detail of the lumbar spine cannot be evaluated. No acute fracture of the thoracic spine is identified. There is no significant change in sagittal alignment between flexion and extension within the lumbar spine. Rosario Guerrero [facility] ORDERABLES * L SPINE 2-3 VIEWS (06/01/2013 13:23 EST) Anatomical Region Laterality Modality Other 06/01/2013 13:2 3 EST 06/04/2013 16:23 EST Narrative 06/04/2013 16:23 EST Plain film entire spine and lumbar spine History: Scoliosis and back pain Lumbar spine findings: Flexion and extension views show no significant change in sagittal alignment between flexion and extension. There is a marked retrolisthesis of L3 upon L4. There is the appearance of intervertebral fusion across all the lumbar levels and posterior elements. Due to the marked distortion anatomy, definitive evaluation of bony anatomy is not possible. Entire spine findings: 2 views. There is a severe levoscoliosis of the lumbar spine with an apex at the L2-3 level. Due to the severe distortion and posterior fusion material, I cannot definitively evaluate the lumbar spine. No segmentation anomalies are identified within the cervical or thoracic spine. The lungs are hypoinflated but otherwise clear. Conclusion: Due to the severe scoliosis, hypertrophic changes and fusion material, the fine bony detail of the lumbar spine cannot be evaluated. No acute fracture of the thoracic spine is identified. There is no significant change in sagittal alignment between flexion and extension within the lumbar spine. Procedure Note 06/04/2013 Plain film entire spine and lumbar spine History: Scoliosis and back pain Lumbar spine findings: Flexion and extension views show no significant change in sagittal alignment between flexion and extension. There is a marked retrolisthesis of L3 upon L4. There is the appearance of intervertebral fusion across all the lumbar levels and posterior elements. Due to the marked distortion anatomy, definitive evaluation of bony anatomy is not possible. Entire spine findings: 2 views. There is a severe levoscoliosis of the lumbar spine with an apex at the L2-3 level. Due to the severe distortion and posterior fusion material, I cannot definitively evaluate the lumbar spine. No segmentation anomalies are identified within the cervical or thoracic spine. The lungs are hypoinflated but otherwise clear. Conclusion: Due to the severe scoliosis, hypertrophic changes and fusion material, the fine bony detail of the lumbar spine cannot be evaluated. No acute fracture of the thoracic spine is identified. There is no significant change in sagittal alignment between flexion and extension within the lumbar spine. Rosario Hutchison PA-C [facility] ORDERABLES documented in this encounter Visit Diagnoses Diagnosis Low back pain- Primary Lumbago Scoliosis Scoliosis (and kyphoscoliosis), idiopathic Lumbar radiculopathy Thoracic or lumbosacral neuritis or radiculitis, unspecified documented in this encounter Historical Medications * This list may reflect changes made after this encounter. Medication Sig Dispensed Refills Start Date End Date acetaminophen-codeine (TYLENOL #3) 300-30 mg per tablet Take 1 Tab by mouth as needed for Pain. 10/05/2013 added in this encounter Care Teams Model Photographers' Relationship Specialty Start Date End Date Barbra Vaughn MD [address] [place] [id number] PCP - General 02/27/13 10/04/13 documented as of this encounter
--- OUTSIDE RECORDS SUMMARY | 2023-12-21 12:11 | XMS_ITS | Encounter Summary ---
Author Organization [facility] Address [address] [place] [address] Care Team Providers Care Armored Service Technician Name Role Phone Barbra Vaughn MD Primary Care Provider [phone] Encounter Details Date Type Department Care Team (Late st Contact Info) Description 06/11/2013 Results Only Imaging [facility] Gastroenterology - [address] [id number] Brody Duran MD PhD [address] [place] [address] [phone] Social History Tobacco Use Types Packs/Day Years [...] Info) Description 01/23/2024 10:00 EDT Office Visit [facility] General Surgery - [address] [id number] Bon Gutierrez MD [address] [place] [address] [phone] 09/10/2024 10:00 EDT Appointment Shaina Mejia [address] [place] [address] documented as of this encounter Procedures Procedure Name Priority Date/Time Associated Diagnosis Comments RAD US ABDOMEN ONE ORGAN/QUADRANT 06/18/2013 10:46 EDT documented in this encounter Results * RAD US ABDOMEN ONE ORGAN/QUADRANT (06/18/2013 10:46 EDT) Anatomical Region Laterality Modality Other 06/18/2013 10:4 6 EDT 06/18/2013 11:48 EDT Narrative 06/18/2013 11:48 EDT RAD US ABDOMEN ONE ORGAN/QUADRANT ??06/18/2013 10:46 AM Clinical History/Comments: 070.54-Chronic hepatitis C without mention of hepatic dqrr-VER-6-CM 571.5-Cirrhosis of liver without mention of uavepkc-GAP-1-CM; cirrhosis r/o HCC pager 01 Comparison: ??None Technique: Static, cine, and selected color Doppler images of the right upper quadrant were obtained. Findings: The pancreas was not visualized due to overlying bowel gas. The liver measures 15.2 cm in craniocaudal dimension. There is a heterogeneous hepatic echotexture. A mildly nodular surface contour is seen. No focal hepatic lesions or intrahepatic biliary dilatation is seen. The gallbladder measures 2.2 mm in thickness. A mildly echogenic focus adjacent to the gallbladder wall does not move with changes in patient position. This measures 3 mm and has no shadowing. There was no tenderness time examination of the gallbladder. The common bile duct measures 4.5 mm. The right kidney measures 10 cm in craniocaudal dimension. There is no hydronephrosis or perinephric fluid collection. The visualized portions of the aorta and inferior, are of normal caliber. Impression: 1. Nodular liver surface texture and heterogeneous echotexture consistent with cirrhosis. 2. No focal hepatic lesions identified. 3. Suspected 3 mm gallbladder polyp, no dedicated followup required. ?? I have personally reviewed the images and the above interpretation and agree with the findings. Procedure Note Alonzo Arriola MD - 06/18/2013 RAD US ABDOMEN ONE ORGAN/QUADRANT 06/18/2013 10:46 AM Clinical History/Comments: 070.54-Chronic hepatitis C without mention of hepatic eehq-UOO-8-CM 571.5-Cirrhosis of liver without mention of ibtvcwd-IWB-4-CM; cirrhosis r/o HCC pager 01 Comparison: None Technique: Static, cine, and selected color Doppler images of the right upper quadrant were obtained. Findings: The pancreas was not visualized due to overlying bowel gas. The liver measures 15.2 cm in craniocaudal dimension. There is a heterogeneous hepatic echotexture. A mildly nodular surface contour is seen. No focal hepatic lesions or intrahepatic biliary dilatation is seen. The gallbladder measures 2.2 mm in thickness. A mildly echogenic focus adjacent to the gallbladder wall does not move with changes in patient position. This measures 3 mm and has no shadowing. There was no tenderness time examination of the gallbladder. The common bile duct measures 4.5 mm. The right kidney measures 10 cm in craniocaudal dimension. There is no hydronephrosis or perinephric fluid collection. The visualized portions of the aorta and inferior, are of normal caliber. Impression: 1. Nodular liver surface texture and heterogeneous echotexture consistent with cirrhosis. 2. No focal hepatic lesions identified. 3. Suspected 3 mm gallbladder polyp, no dedicated followup required. I have personally reviewed the images and the above interpretation and agree with the findings. Brody Duran MD PhD IMG US ORDERABL ES documented in this encounter Visit Diagnoses Not on filedocumented in this encounter Care Teams Armored Service Technician Relationship Specialty Start Date End Date Barbra Vaughn MD [address] [place] [address] [address] PCP - General 02/27/13 10/04/13 documented as of this encounter
--- OUTSIDE RECORDS SUMMARY | 2023-12-21 12:11 | XMS_ITS | Encounter Summary ---
Author Organization [facility] Address [address] [place] [address] Care Team Providers Care Hot Pipe Gauger Name Role Phone Barbra Vaughn MD Primary Care Provider [phone] Reason for Referral * (Routine/Next Available) - Closed Specialty Diagnoses / Procedures Referred By Contac t Referred To Contact Kait Perkins MD [address] [place] [address] Referral ID Status Reason Start Date Expiration Date V isits Requested Visits Authorized [id number] Closed Specialty Services Required 06/16/2013 1 1 Comments Please call for an appointment with your PCP within 7 days * (Routine/Next Available) - Closed Specialty Diagnoses / Procedures [facility]erred To Contact Kait Perkins MD [address] [place] [address] Referral ID Status Reason Start Date Expiration Date V isits Requested Visits Authorized [id number] Closed Specialty Services Required 06/16/2013 1 1 Reason for Visit * Reason Comments Rectal Bleeding Pt to the ED from [place]. Pt with rectal bleeding since 0400. Pt with hx of the same, [place] [facility] [place] the same with inconclusive workup. Pt in NAD. Skin warm adn dry. Resp unlabored. pt Ao. Encounter Details Date Type Department Care Team (Late st Contact Info) Description 06/15/2013 1:55 EST - 06/16/2013 14:[address] [facility] Hematology & Oncology Unit [address] [place] [address] Torres Allen MD Walsh, Cary Morris MD [address] [facility], [facility], [address] [place] [address] Lester Kelly MD [address] [place] [address] Janie Mcgraw MD [address] [place] [phone] GI bleed (Primary Dx); Chronic hepatitis C without mention of hepatic coma; Cirrhosis (CMS-HCC) (HCC-CMS) Discharge Disposition: Home or Self Care [...] Sign Reading Time Taken Comments Blood Pressure 117/60 06/16/2013 1030 EST Pulse 62 06/16/2013 1030 EST Temperature 36.8 ??C (98.2 ??F) 06/16/2013 1030 EST Respiratory Rate 16 06/16/2013 1030 EST Oxygen Saturation 100% 06/16/2013 1030 EST Inhaled Oxygen Concentration - - Weight 86.7 kg (191 lb 2.2 oz) 06/16/[address] Height 162.6 cm (5' 4.02) 06/15/2013 1408 EST Body Mass Index 32.79 06/15/2013 1408 EST documented in this encounter Functional Status Cognitive Status Response Date of Assessm ent Because of a physical, menta l, or emotional condition, do you have serious difficulty concentrating, remembering, or making decisions? (5 years old or older) Yes 06/15/2013 documented as of this encounter Discharge Summaries * Janie Mcgraw MD - 06/16/2013 1120 EST Discharge Summary Dates of hospitalization: 06/15/2013 -- 06/16/2013 Chief Complaint/Reason for Admission: Melena Principal/Final Diagnosis: Upper GI bleed 2/2 portal hypertensive gastropathy vs duodenal ulcer. Active Medical Problems: Cirrhosis Condition: Good Hospital Course: Mr. Carballo is a 58 yo male with hx of cirrhosis and esophageal varices who presented with several episodes of melena on 06/14 as well as a hemaglobin drop from 10.6 to 7.7. 1. Upper GI Bleed: He was started on ceftriaxone, octreotide, and BID pantoprazole. He was evaluated with a tagged red cell scan which awas negative. He was transfused 2units pRBC and an upper endoscopy was done. The EGD showed small non-bleeding varices in the distal esophagus, portal hypertensive gastropathy in the stomach with numerous red spots, one of which was slightly oozing, and a small clean based ulcer in the duodenal bulb. H.pylori testing was started and was pending at time of discharge. He was transitioned from ceftriaxone to norfloxacin 400mg BID. His hemoglobin stabilized and he had resolution of melanotic movements and he was considered stable for discharge on 06/16. He has a RUQ U/S scheduled for 06/18/13 and will follow up with Dr. Duran in GI clinic. Pending studies at discharge: -H.pylori Ab Follow Up: Primary doctor, Barbra Vaughn MD, in one week ([phone]) Future Appointments Date Time Provider Department Center 03/15/2014 13:00 Brody Duran MD [facility] None Procedures: EGD Date: 06/15/2013 Esophagus- small varices in the distal esophagus. Not bleeding Stomach- Portal hypertensive gastropathy throughout with numerous red spot. One of which was slightly oozing. Duodenum- small, clean based ulcer in the bulb Imaging and other studies: NM Acute blood loss scan 06/15/2013 Findings: There is normal RBC distribution without evidence of active GI bleed. Normal secretion into the urinary bladder is evident. Impression: No evidence of active GI bleeding. Last Lab Results at discharge: WBC/Hgb/Hct/Plts: 2.91/9.6/28.7/98 (06/16 1125) Na/K/Cl/CO2: 138/3.5/112/23 (06/17 631) BUN/Cr/glu/ALT/AST/amyl/lip: 20/0.84/--/--/--/--/-- (06/17 631) PT/INR/PTT: 14.4/1.3/31 (06/14 2244) Medications at discharge: Medication List START taking these medications Norfloxacin 400 mg tablet Commonly known as: NOROXIN Take 1 Tab by mouth BEFORE BREAKFAST & DINNER. Start taking on: 06/17/2013 CHANGE how you take these medications pantoprazole 40 mg tablet Commonly known as: PROTONIX Take 1 Tab by mouth 2 times daily for 30 days. 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 You may get the following medications from any pharmacy - Norfloxacin 400 mg tablet - pantoprazole 40 mg tablet cc: Barbra Vaughn MD Discharge Summary Completed: yes Attestation: I saw and examined the patient with the resident/fellow 06/16/2013. I agree with the findings and plan of care documented in the resident's/fellow's note. I spent a total of 25 minutes with the patient in direct floor time and discharge care. Janie Mcgraw MD 06/16/2013 23:34 documented in this encounter Medications at Time [...] 06/16/2013 07/16/2013 documented as of this encounter Ordered Prescriptions Prescription Sig Dispensed Refills Start Date End Da te Norfloxacin (NOROXIN) 400 mg tablet Take 1 Tab by mouth BEFORE BREAKFAST & DINNER. 20 Each 0 06/17/2013 10/05/2013 pantoprazole (PROTONIX) 40 mg tabletIndications:Chroni c hepatitis C without mention of hepatic coma,Cirrhosis (HCC-CMS) Take 1 Tab by mouth 2 times daily for 30 days. 60 Tab 0 06/16/2013 07/16/2013 documented in this encounter Discharge Disposition Disposition Code Departure Means Destination Home or Self Care documented in this encounter Progress Notes * Raquel Natarajan - 06/15/2013 1449 EST Internal Medicine Daily Progress Note Admit Date: 06/15/2013 Date of Service: 06/15/2013 Hospital LOS: 0 days CC: Black stool Problems/Diagnosis: Alma Carballo is a 58 y.o. male Hx of Hep C, Cirrhosis, and esophageal varices who was transferred from OSH for one day Hx of dark and tarry stool. Overnight Events: Received 2 units of blood fro Hg of 7.7 Subjective: Patient complained of feeling fatigue and malaise. He was also complaining of [place] that improved oncehe started transfusion. He had 2 black stool this morning that were smaller in amount than the previous ones. Pt denies any CP, SOB, N/V, lightheadedness, fevers, chills, abdominal pain, changes in urinary habits. Medication Changes for the Day: All other medications were reviewed by me. Current Facility-Administered Medications Medication Route Frequency ??? cefTRIAXone (ROCEPHIN) 1,000 mg in sodium chloride 0.9 % 50 mL IVPB intravenous DAILY ??? folic acid (FOLVITE) tablet 1 mg oral DAILY ??? meperidine (PF) (DEMEROL) 100 mg/mL injection 25-200 mg intravenous Once PRN ??? midazolam (PF) (VERSED) 1 mg/mL injection 1-10 mg intravenous Once PRN ??? octreotide (SANDOSTATIN) 500 mcg in sodium chloride (NS) 0.9 % 250 mL infusion intravenous CONTINUOUS ??? pantoprazole (PROTONIX) injection 40 mg intravenous BID ??? sodium chloride 0.9 % (NS) infusion intravenous CONTINUOUS Objective: Physical Exam: VS: BP 117/79 Pulse 78 Temp(Src) 36.9 ??C (98.4 ??F) (Tympanic) Resp 16 Ht 162.6 cm (64.02) Wt 86.183 kg (190 lb) BMI 32.6 kg/m2 SpO2 99% Gen: In NAD, cooperative, on room air HEENT: Atraumatic, normocephalic, no thyroid nodules palpated, no goiter, no JVD, moist mucous membranes Cardio: RRR, no M/R/G, nl s1s2 Chest: No chest wall tenderness Lungs: CTAB, no wheezes, no rhonchi, no crackles, no respiratory distress, good inspiratory effort Abd: Positive bowel sounds, ND, NT, no organomegaly, soft Ext: No pitting edema bilaterally on lower extremities, 2+ pulses bilaterally on radials and DPs Neuro: A&Ox3, no neurological focal deficits. Labs: CBC: Recent Labs 06/14/13 2245 06/15/13 0237 WBC 6.59 5.28 HGB 8.2* 7.7* HCT 25.0* 23.3* MCV 84 84 PLT 112* 103* BMP: Recent Labs 06/15/13 0237 NA 140 K 3.8 CL 117* CO2 23* BUN 33* CREATININE 0.79 Radiology Imaging: NM: There is normal RBC distribution without evidence of active GI bleed. Normal secretion into the urinary bladder is evident. Impression: No evidence of active GI bleeding. Assessment: Pt is a 58 y.o. male with Hx of Hep C, Cirrhosis, and esophageal varices admitted for melanic stoolconcerning for upper GI bleed. Plan: 1) UGIB: the melanic stool, hypotension, risk factor and the BUN:CR of >20:1 is suggestive of UGIB most likely from a bleeding varices vs bleeding ulcer. AVM or malignancies are also possible cause in this patient. --Continue octreotide and Protonix --Recheck Hg post transfusion --Continue IV fluid and bolus if patient becomes hypotensive and tachycardic --GI consulted, patient getting upper GI, will follow up on results 2) Cirrhosis --OSH LFT with in normal limits, INR nl --US of abdomen did not reveal trappable ascites --Continue SBP ppx of ceftriaxone FEN: NPO Ppx: none due to beeding Code Status: full Dispo: upon clinical improvement Consults: Raquel Rivera-MSIV #[id number] * Nadeen Scott - 06/15/2013 1403 EST Brief Case Management Assessment & Initial Discharge Plan Reason for Hospitalization: GI bleeding Current Living Arrangements: Resides with spouse in a one story home with 3 steps in. No DME Current Social, Health Care and Community Supports: No services at home. He has been independent in his care. Spouse is supportive Identified Case Management/Social Work Needs and Issues (housing, care, financial, transportation, cultural, spiritual, emotional, legal, etc.): Pt does drive and he has a ride home via his spouse . He has MC and BC/BS and states assist with meds.He uses [facility] in [place] Case Management Actions (completed and planned): No needs identified at present but will monitor. [place] [place] #[id number] * Janie Mcgraw MD - 06/15/2013 5745 EST Internal Medicine Daily Progress Note Admit Date: 06/14/2013 Date of Service: 06/15/2013 Hospital LOS: 1 day CC: Melena Problems/Diagnosis: Upper GI bleed Overnight Events: Admitted overnight, transfusing 2u pRBC. Tagged RBC scan was negative. Subjective: Reports 2 dark bloody BM today that were mostly blood with a little bit of stool. He had ~30 BM yesterday that were are dark and bloody. He denies having any dizziness on standing, nausea or vomiting. Review of Systems: A 10-point ROS was performed. Pertinent positives are listed above; all others negative unless otherwise noted. Medication : Current Facility-Administered Medications Medication Route Frequency ??? cefTRIAXone (ROCEPHIN) 1,000 mg in sodium chloride 0.9 % 50 mL IVPB intravenous DAILY ??? folic acid (FOLVITE) tablet 1 mg oral DAILY ??? octreotide (SANDOSTATIN) 500 mcg in sodium chloride (NS) 0.9 % 250 mL infusion intravenous CONTINUOUS ??? pantoprazole (PROTONIX) injection 40 mg intravenous BID ??? sodium chloride 0.9 % (NS) infusion intravenous CONTINUOUS Objective: Physical Exam: VS: BP 103/61 Pulse 85 Temp(Src) 36.5 ??C (97.7 ??F) (Tympanic) Resp 16 Ht 158 cm (62.21) Wt 86.6 kg (190 lb 14.7 oz) BMI 34.69 kg/m2 SpO2 100% Gen: In NAD, cooperative, on room air HEENT: Atraumatic, normocephalic, no JVD, moist mucous membranes Cardio: RRR, 2/6 holosystolic murmur at apex Chest: No chest wall tenderness Lungs: CTAB, no wheezes, no rhonchi, no crackles Abd: Positive bowel sounds, ND, NT, no organomegaly, soft, no caput medusae Ext: No pitting edema bilaterally on lower extremities, 2+ pulses bilaterally on radials and dorsalis pedis Neuro: A&Ox3, no neurological focal deficits. Labs: CBC: Recent Labs 06/14/13 2245 06/15/13 0237 WBC 6.59 5.28 HGB 8.2* 7.7* HCT 25.0* 23.3* MCV 84 84 PLT 112* 103* BMP: Recent Labs 06/15/13 0237 NA 140 K 3.8 CL 117* CO2 23* BUN 33* CREATININE 0.79 Radiology Imaging: Tagged RBC scan: No evidence of active GI bleeding Assessment: Pt is a 58 y.o. male with hx of cirrhosis 2/2 blood transfusion, and esophageal varices who presented overnight with several episodes of melena concerning for UGI bleed. Tagged RBC negative, Hgb dropped to 10.6 to 7.7 and started on 2u pRBC transfusion. Plan: UGIB: Appears to be slowing down. - continue Ceftriaxone given UGIB in patient with cirrhosis - Octreotide bolus and infusion - Two large bore IVs - Transfusing 2U PRBC - q6h Hemagram - Protonix IV BID - Holding nadalol until patient is HD stable. - Tagged RBC scan negative - EGD this afternoon Cirrhosis: - Has failed interferon therapy in the past, due for screening US per Dr. Duran. - GI consulted, appreciate recs - SBP ppx as above - Transaminases normal at OSH, INR 1.2 FEN: NPO for EGD this afternoon PPX: None given active bleed Code status: FULL Dispo: Pending HD stable and HGB stable Kait Perkins M.D. M.P.H PGY-2, #[id number] Attestation: I saw and examined the patient with the resident/fellow 06/15/2013. I agree with the findings and plan of care documented in the resident's/fellow's note. EGd w/ portal gastropathy and clean based duodenal ulcer as potential sources. Continue PPI BID, check for h pylori, SBP ppx x 7 days. Bedside US today without evidence of significant ascites. I spent a total of 35 minutes beween thehours of 10:00 and 14:00 in face to face time with this patient today. Janie Mcgraw MD 06/15/2013 20:02 documented in this encounter H&P Notes * Torres Jennings MD - 06/15/2013 1417 EST Sedation for Procedure History & Physical Date: 06/15/2013 Time: 14:17 Location: [facility] Planned Procedure: Gastroscopy Chief Complaint/Indications for Procedure: black stools History Previous Complication with Sedation and/or Anesthesia? No Allergies: Allergies Allergen Reactions ??? Ambien (Zolpidem) Sleep-driving Current Medications: Prescriptions prior to admission Medication Sig Dispense Refill ??? acetaminophen-codeine (TYLENOL [...] 100 mg by mouth daily as needed. Past Medical History: Past Medical History Diagnosis [...] as pertinent: Physical Exam Vital Signs: BP 110/73 Pulse 78 Temp(Src) 36.9 ??C (98.4 ??F) (Tympanic) Resp 16 Ht 162.6 cm (64.02) Wt 86.183 kg (190 lb) BMI 32.6 kg/m2 SpO2 100% Heart Examination: Cardiac Regularity: Regular Respiratory Examination: Respiratory Pattern: Regular Breath Sounds Right: Clear Breath Sounds Left: Clear Additional physical exam related to the proposed procedure, patient activity, disease state and treatment as pertinent: Assessment Previous complications with sedation or anesthesia?: No Airway Concerns: None Anesthesia Classification: ASA 2 Plan: Proceed with sedation for procedure Fasting Time: Time of last liquid intake: 0700 Date of Last Liquid Intake: 06/15/13 Time of last solid intake: 0700 Date of last solid intake: 06/15/13 Patient Appropriate Candidate for Planned Sedation?: Yes Torres Jennings MD 06/15/2013 14:17 * Lester Kelly MD - 06/15/2013 0455 EST Internal Medicine Admission H&P Admission Date: 06/14/2013 PCP: Barbra Vaughn MD CC: Melena Subjective: HPI: Alma Carballo is a 58 y.o. year old male with history of hepatitis C obtained from blood transfusion, cirrhosis of the liver complicated by an encephalopathy in 2001, esophageal varices followed byDr. [facility] at [facility], CKD, and chronic back pain who presents today with one day history of melenicstools. He says they started at 4 AM, and have been nonstop, since that time. He endorses dark and tarry stools, associated with mild nausea, but he denies any episodes of vomiting, hemoptysis, bright red blood per rectum or abdominal pain. He denies any lightheadedness, dizziness or presyncopal/syncopal events. He says that event similar to this occurred in November of 2012, was worked up at [facility] but no source of bleed was revealed. Workup at that time included and upper and lower endoscopy and capsule endoscopy. He presented initially to outside hospital where an EKG was done revealingnormal sinus rhythm. 3 L of normal saline were given bolus, in addition to Tylenol 650 mg, protonixto IV 40 mg and ceftriaxone 1 g. The patient was transferred to [facility] for further management. His hemoglobin at the outside hospital was 10.6. AST, ALT, Alk phos and total bilirubin were within normal limits. His blood pressures range from 107 to 115 systolic. Now at [facility] ED, patient stating that he continues to feel the urge to have another stool. He continues to deny any lightheadedness or other constitutional symptoms as above. He feels mild fatigue andmalaise. He had another stool in the ED which was found to be dark black. ED ordered taggeded bloodcell scan which was negative. Endorses orthostatic lightheadedness. Ron abdominal pain, NSAID use, hematemisis, Review of Systems A ten point review of systems performed and negative except as noted in HPI/subjective PMH PSH Past Medical History Diagnosis Date ??? Anemia ??? Depression ??? Chronic kidney disease ??? Hepatitis C ??? Cirrhosis of liver ??? Esophageal varices ??? Chronic back pain ??? Leg numbness Past Surgical History Procedure Laterality Date ??? Esophageal varice ligation 2009 or 2009 ??? Hernia repair hiatal hernia ??? Back surgery 1974, 1981 Social History Family history History Substance Use Topics ??? Smoking status: Never Smoker ??? Smokeless tobacco: Never Used ??? Alcohol Use: No Denies etoh or tobacco abuse, denies drug abuse. Hep C was obtained from a blood transfusion in the70s. Family History Problem Relation Age of Onset ??? Cancer Mother ??? Diabetes Mother ??? Alcohol Abuse Father ??? Cancer Father ??? Cancer Sister ??? Crohn's Disease Sister ??? Diabetes Sister ??? Cancer Brother ??? Anesth Problems Brother ??? Cancer Sister ??? Anesth Problems Sister Current Facility-Administered Medications Medication Route Frequency ??? cefTRIAXone (ROCEPHIN) 1,000 mg in sodium chloride 0.9 % 50 mL IVPB intravenous DAILY ??? folic acid (FOLVITE) tablet 1 mg oral DAILY ??? octreotide (SANDOSTATIN) 500 mcg in sodium chloride (NS) 0.9 % 250 mL infusion intravenous CONTINUOUS ??? pantoprazole (PROTONIX) injection 40 mg intravenous BID ??? sodium chloride 0.9 % (NS) infusion intravenous CONTINUOUS Allergies Allergies Allergen Reactions ??? Ambien (Zolpidem) Sleep-driving Objective: VS: BP 105/57 Temp(Src) 36.6 ??C (97.9 ??F) Resp 18 Ht 158 cm (62.21) Wt 86.6 kg (190 lb 14.7 oz) BMI 34.69 kg/m2 SpO2 99% Gen: In NAD, cooperative, on room air HEENT: PERRL, EOMI, no thyroid nodules palpated, no LAD, no JVD, moist mucous membranes, no oral lesions appreciated Cardio: RRR, 2/6 holosystolic murmur appreciated at apex, no R/G, nl s1s2 Chest: No chest wall tenderness, no breast development Lungs: CTAB, no wheezes, no rhonchi, no crackles, no respiratory distress, good inspiratory effort Abd: Positive bowel sounds, ND, NT, no organomegaly, soft, no spider angiomata, no caput medusae Ext: No pitting edema bilaterally on lower extremities, 2+ pulses bilaterally on radials and DPs Neuro: A&Ox3, CN II-XII intact, no neurological focal deficits. Rectal deferred. Melanotic stool visualized in ED. Data Review: CBC Recent Labs 06/14/135 06/15/13 0237 WBC 6.59 5.28 RBC 2.97* 2.78* HGB 8.2* 7.7* HCT 25.0* 23.3* MCV 84 84 MCH 27.7 27.9 MCHC 32.9 33.2 PLT 112* 103* RDWCV 18.5* 18.1* BMP Recent Labs 06/15/13 0237 NA 140 K 3.8 CL 117* CO2 23* BUN 33* CREATININE 0.79 CALCGFR >60 Coags Recent Labs 06/14/135 PTT 31 PROTIME 14.4* INR 1.3* Radiology Studies: Tagged RBC: PRELIMINARY RESIDENT REPORT Technique: NM ACUTE GI BLOOD LOSS 06/15/2013 1:44 AM Signs and Symptoms/Comments: GI Bleed After the IV injection of 24.0 mCi Tc-99m labeled autologous RBCs, serial 5-second flow images were obtained for one minute immediately followed by serial 30-second images for one hour. Images were reviewed in static and cine loop modes. Findings: There is normal RBC distribution without evidence of active GI bleed. Normal secretion into the urinary bladder is evident. Impression: No evidence of active GI bleeding. Assessment: 58 y.o. male with hepatitis C obtained from blood transfusion, cirrhosis of the liver complicated by a encephalopathy in 2001, esophageal varices, who presents with one day of melena concerning for upper GI bleed secondary to esophageal varices. [facility] Plan: UGIB: Given history of melena, upper GI bleed is likely although does not appear to be variceal bleeding. Seems to be less volume than previous and slowing. l, as well as esophageal, gastric malignancy, or dieulafoys lesion. - Ceftriaxone given UGIB in patient with cirrhosis - Octreotide bolus and infusion - Two large bore IVs - Type and screen and prepare 2U PRBC for transfusion given drop in Hgb from 10.6 to 7.7 - 1L NS bolus here and 125/hr continued - Protonix IV BID - Holding nadalol until patient is HD stable. - Prelim Tagged RBC scan negative Cirrhosis: - Has failed interferon therapy in the past, due for screening US per Dr. Duran. Consider GI consult in AM ( I have discussed the case with Dr. Fischer and tentative plans are for upper endoscopy) - Be cautious with use of tylenol - SBP ppx as above - Transaminases wnl at OSH, INR 1.2 PPX: None given active bleed Code status: FULL Dispo: Pending HD stable and HGB stable Adonis Daley MD--PGY2 Pager # [phone] 06/15/2013 4:55 Attestation: I saw and examined the patient 06/15/2013. I agree with the resident's/fellow's findingsand plans as documented except as in RED. 58 year old male with hepatitis C and cirrhosis who presents with melanotic stools concerning for upper GI bleed. Currently HD stable with decreased volume of stools. Tagged RBC scan ordered by ED negative. Protonix, octreotide, and ceftriaxone as above andplan on EGD today. LESTER KELLY MD 06/15/2013 5:40 documented in this encounter Procedure Notes * CT TECH, SCAN 2 - 06/16/2013 0039 ESTAssociated Order(s): PROCEDURE REPORTS - SCANNED * Rubio Fischer MD - 06/15/2013 4299 EST Brief Procedure Note EGD performed in endoscopy suite with conscious sedation. Esophagus- small varices in the distal esophagus. Not bleeding Stomach- Portal hypertensive gastropathy throughout with numerous red spot. One of which was slightly oozing. Duodenum- small, clean based ulcer in the bulb Assessment: GI bleeding source could potentially be from portal hypertensive gastropathy oozing vs ulcer in theduodenal bulb. Recommendations: 1. BID PPI x 8 weeks 2. Stop octreotide 3. Check for H Pylori and treat if positive 4. Outpatient follow up with Dr. Duran 5. continue ceftriaxone 1 gm daily for a total of 7 days (or oral equivalent if discharged prior tothat) 6. HAV vaccine should be given as outpatient 7. due soon for RUQ ultrasound for HCC screening Torres Jennings MD Gastroenterology and Hepatology #[id number] Attestation statement: I saw and examined the patient with the resident/fellow. I agree with the findings and plan of care documented in the resident's/fellow's note. documented in this encounter Consult Notes * Rubio Fischer MD - 06/15/2013 1328 EST Gastroenterology & Hepatology Consult Note The Gastroenterology service was consulted to see Alma Carballo for GI bleeding, cirrhosis Requesting Physician: Janie Mcgraw MD Impression and Recommendations: 58 y.o. male with a medical history of HCV, etoh abuse (stopped 3 months ago), cirrhosis complicated by esophageal varices (banded in 2007 and on nadolol), GI bleeding in 2012 with no known source (EGD, colonoscopy, capsule endoscopy), CKD, and chronic back pain who presents with melena. Will plan on EGD to evaluate. DDx includes: variceal bleeding, PUD, dieulafoy's lesion. Other causes less likely. - EGD today - continue PPI and octreotide - continue ceftriaxone 1 gm daily for a total of 7 days - HAV vaccine should be given as outpatient - due soon for RUQ ultrasound for HCC screening This patient was seen and examined with Dr. Fischer. Torres Jennings MD Pager #[phone] Gastroenterology & Hepatology Fellow 06/15/2013 13:29 Attestation statement: I saw and examined the patient with the resident/fellow. I agree with the findings and plan of care documented in the resident's/fellow's note. 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 He had recent work-[place] for GI [place] [facility] [place], colonoscopy, and VCE which was non-diagnostic. Tagged RBC scan overnight was negative. Will plan on repeat EGD today to determine etiology of bleeding. HPI: 58 y.o.male with a medical history of HCV, etoh abuse (stopped 3 months ago), cirrhosis complicatedby esophageal varices (banded in 2007 and on nadolol), GI bleeding in 2012 with no known source (EGD, colonoscopy, capsule endoscopy), CKD, and chronic back pain who presents with melena. Has had numerous episodes of melena throughout the day. He presented to an OSH and received IVFs, tylenol, protonix IV 40 mg and 1 gram of ceftriaxone. Hb of 10.6. Upon transfer, his Hb was 7.7 and he was given 2 units of pRBCs. Octreotide was started. A tagged RBC scan was done which was negative. The patient denies any recent history of fevers, chills, abdominal pain, appetite loss, hematemesis, nausea/vomiting or swallowing difficulty/pain. ROS: Full [...] hiatal hernia ??? Back surgery 1973, 1980 Current Facility-Administered Medications Medication Route Frequency ??? cefTRIAXone (ROCEPHIN) 1,000 mg in sodium chloride 0.9 % 50 mL IVPB intravenous DAILY ??? folic acid (FOLVITE) tablet 1 mg oral DAILY ??? octreotide (SANDOSTATIN) 500 mcg in sodium chloride (NS) 0.9 % 250 mL infusion intravenous CONTINUOUS ??? pantoprazole (PROTONIX) injection 40 mg intravenous BID Prescriptions prior to admission Medication Sig Dispense Refill ??? acetaminophen-codeine (TYLENOL [...] 100 mg by mouth daily as needed. Allergies Allergen Reactions ??? Ambien (Zolpidem) Sleep-driving [...] Sister ??? Anesth Problems Sister PE: BP 126/62 Pulse 78 Temp(Src) 36.8 ??C (98.2 ??F) (Tympanic) Resp 16 Ht 158 cm (62.21) Wt86.6 kg (190 lb 14.7 oz) BMI 34.69 kg/m2 SpO2 100% Intake/Output Summary (Last 24 hours) at 06/15/13 1329 Last data filed at 06/15/13 1321 Gross per 24 hour Intake 660 ml Output 200 ml Net 460 ml Gen: Well appearing, NAD, A+Ox3 HEENT: No conjunctival icterus CV: RRR Lungs: CTA bilaterally anteriorly GI: non-distended; soft, non-tender, no organomegaly; BS+ Neuro: no gross motor or sensory deficits Extrem: WWP, no LE edema Skin: No rash Laboratory: Labs reviewed, pertinent results are as follows: Recent Labs 06/14/13 2245 06/15/13 0237 HGB 8.2* 7.7* HCT 25.0* 23.3* MCV 84 84 PLT 112* 103* WBC 6.59 5.28 Recent Labs 06/15/13 0237 CREATININE 0.79 BUN 33* NA 140 K 3.8 CL 117* CO2 23* Recent Labs 06/14/13 2245 PROTIME 14.4* INR 1.3* PTT 31 Imaging: Tagged RBC cell scan negative 06/14 documented in this encounter ED Notes * Torres Allen MD - 06/21/2013 1819 EDT DOS: 06/14/2013 Chief Complaint Patient presents with ??? Rectal Bleeding Pt to the ED from [facility]. Pt with rectal bleeding since 0. Pt with hx of the same, admitted [place] [facility] [place] the same with inconclusive workup. Pt in NAD. Skin warm adn dry. Resp unlabored. pt Ao. The patient is a 58 y.o. male who presents today with Rectal Bleeding HPI Comments: Patient is transferred our facility with active GI bleeding. He has had multiple bloody stools since about 4 AM. He has a history of previous rectal bleeding similar to this and has had an extensive workup including colonoscopy and EGD as well as video capsule small bowel endoscopy, with no clear source. He was initially seen at outside facility and was transferred here for further care. He denies any pain but says he is having mild abdominal cramping. He says he had a bloody stool just prior to arrival here. Denies dizziness shortness of breath or chest pain. The patient also does have a history of esophageal varices and hepatitis C, but denies any hematemesis. The history is provided by the patient and medical records. Rectal Bleeding Associated symptoms include hematochezia. Pertinent negatives include no fever, no nausea, no vomiting, no dysuria, no frequency, no headaches, no abdominal pain and no dizziness. Review of Systems Constitutional: Negative for fever, chills and fatigue. HENT: Negative for congestion, sore throat and rhinorrhea. Eyes: Negative for visual disturbance. Respiratory: Negative for cough and shortness of breath. Cardiovascular: Negative for chest pain and palpitations. Gastrointestinal: Positive for blood in stool and hematochezia. Negative for nausea, vomiting and abdominal pain. Genitourinary: Negative for dysuria and frequency. Musculoskeletal: Negative for back pain. Skin: Negative for rash. Neurological: Negative for dizziness, syncope, light-headedness and headaches. Psychiatric/Behavioral: Negative for confusion. All [...] ??? Anesth Problems Sister Vital Signs Temp: 36.8 ??C (98.2 ??F) Temp src: Tympanic Pulse: 62 Heart Rate: 81 BPM Resp: 16 SpO2: 100 % BP: 117/60 mmHg BP Device: BP Machine Patient Position: Supine BP Cuff Location: Left arm O2 Flow Rate (L/min): 5 l/min O2 Device: None (Room air) Physical Exam Nursing note and vitals reviewed. Constitutional: He is oriented to person, place, and time. He appears well- developed and well-nourished. Well-developed well-nourished gentleman who is in no acute distress. HENT: Head: Normocephalic and atraumatic. Right Ear: External ear normal. Left Ear: External ear normal. Nose: Nose normal. Mouth/Throat: Oropharynx is clear and moist. Eyes: Conjunctivae are normal. Pupils are equal, round, and reactive to light. Right eye exhibits no discharge. Left eye exhibits no discharge. Neck: Normal range of motion. Neck supple. No tracheal deviation present. Cardiovascular: Normal rate, regular rhythm, normal heart sounds and intact distal pulses. Exam reveals no gallop and no friction rub. No murmur heard. Pulmonary/Chest: Effort normal and breath sounds normal. No respiratory distress. He has no wheezes. He has no rales. He exhibits no tenderness. Abdominal: Soft. Bowel sounds are normal. He exhibits no distension and no mass. There is no tenderness. There is no rebound and no guarding. Genitourinary: Patient did have a frankly bloody stool shortly after arrival to the ED. Musculoskeletal: Normal range of motion. He exhibits no edema and no tenderness. Neurological: He is alert and oriented to person, place, and time. He has normal strength. He is not disoriented. No sensory deficit. He exhibits normal muscle tone. Skin: Skin is warm and dry. No rash noted. Psychiatric: He has a normal mood and affect. [place] ACUTE GI BLOOD LOSS Final result not shown here.: Radiology orders: [place] ACUTE GI BLOOD LOSS Imaging Results [place] ACUTE GI BLOOD LOSS (Final result) Result time: 06/15/13 09:42:24 Final result Narrative: Technique: [place] ACUTE GI BLOOD LOSS 06/15/2013 1:44 AM Signs and Symptoms/Comments: GI Bleed After the IV injection of 24.0 mCi Tc-99m labeled autologous RBCs, serial 5-second flow images were obtained for one minute immediately followed by serial 30-second images for one hour. Images were reviewed in static and cine loop modes. Findings: There is normal RBC distribution without evidence of active GI bleed. Normal secretion into the urinary bladder is evident. Impression: No evidence of active GI bleeding. I have personally reviewed the images and the above interpretation and agree with the findings. Preliminary result Narrative: PRELIMINARY RESIDENT REPORT Technique: [place] ACUTE GI BLOOD LOSS 06/15/2013 1:44 AM Signs and Symptoms/Comments: GI Bleed After the IV injection of 24.0 mCi Tc-99m labeled autologous RBCs, serial 5-second flow images were obtained for one minute immediately followed by serial 30-second images for one hour. Images were reviewed in static and cine loop modes. Findings: There is normal RBC distribution without evidence of active GI bleed. Normal secretion into the urinary bladder is evident. Impression: No evidence of active GI bleeding. I have personally reviewed the images and the above interpretation and agree with the findings. Preliminary result Narrative: PRELIMINARY RESIDENT REPORT Technique: [place] ACUTE GI BLOOD LOSS 06/15/2013 1:44 AM Signs and Symptoms/Comments: GI Bleed After the IV injection of 24.0 mCi Tc-99m labeled autologous RBCs, serial 5-second flow images were obtained for one minute immediately followed by serial 30-second images for one hour. Images were reviewed in static and cine loop modes. Findings: There is normal RBC distribution without evidence of active GI bleed. Normal secretion into the urinary bladder is evident. Impression: No evidence of active GI bleeding. This is a resident preliminary report by Geovani Snyder M.D. Preliminary result Narrative: PRELIMINARY RESIDENT REPORT Technique: [place] ACUTE GI BLOOD LOSS 06/15/2013 1:44 AM Signs and Symptoms/Comments: GI Bleed After the IV injection of 24.0 mCi Tc-99m labeled autologous RBCs, serial 5-second flow images were obtained for one minute immediately followed by serial 30-second images for one hour. Images were reviewed in static and cine loop modes. Findings: There is normal RBC distribution without evidence of active GI bleed. Normal secretion into the urinary bladder is evident. Impression: No evidence of active GI bleeding. This is a resident preliminary report by Geovani Snyder M.D. Procedures ED Course: A medical screening exam was performed. Patient was hemodynamically stable on arrival. I did Reviewhis transfer paperwork including his labs at the outside facility. Lab Results TRANSFUSION RECORD - SCANNED (Final result) PTT (Final result) Component (Lab Inquiry) Result Time PTT 06/15/13 02:10:39 31 Therapeutic Heparin range: 65-100 seconds PROTIME (Final result) Abnormal Component (Lab Inquiry) Result Time Pro Time I.N.R. 06/15/13 02:06:45 14.4 (H) 1.3 (H) Moderate Intensity Coumadin INR = 2.0-3.0 Adjustments in anticoagulant therapy dose should be basedupon the INR and NOT the Pro Time. HEMAGRAM (Final result) Abnormal Component (Lab Inquiry) Result Time WBC RBC Hemoglobin HCT MCV 06/14/13 23:39:30 6.59 2.97 (L) 8.2 (L) 25.0 (L) 84 Result Time MCH MCHC PLT RDW-CV 06/14/13 23:39:30 27.7 32.9 112 (L) 18.5 (H) TYPE AND SCREEN (Final result) Component (Lab Inquiry) Result Time ABO Rh Factor Antibody Screen 06/14/13 23:27:59 A Positive Negative sample expires 06/17/2013 at 23:59. HOLD GREEN TOP (Final result) Component (Lab Inquiry) Result Time Hold Green Top 06/14/13 23:17:33 Hold for further testing. Specimen will be held for 5 days. HOLD SST (Final result) Component (Lab Inquiry) Result Time Hold SST 06/14/13 23:17:33 Hold for further testing. Specimen will be held for 5 days. HOLD BLUE TOP (Final result) Component (Lab Inquiry) Result Time Hold Blue Top 06/14/13 23:08:30 Sample for coagulation will be discarded after 4 hours Laboratory did show low H&H of 8 and 25. INR elevated at 1.3. Type and screen was also sent andis pending as well. Patient does have evidence of active GI bleeding. Since there does appear to be active bleeding I think that a radial labeled red blood cell scan may provide some diagnostic yield so this has been ordered and is still pending at this time. Every spoken with internal medicine service and he will be admitted to them for stabilization and further workup including GI consultation. He is admitted in guarded Disposition: Admitted The patient's pain was managed to an adequate level weighing risk vs. benefit of further medications. Upon departure from the Emergency Department, the patient's pain was 0 on a zero to ten scale. Condition at departure from the Emergency Department: Fair Discharge Medication List as of 06/16/2013 13:38 START taking these medications Details Norfloxacin (NOROXIN) 400 mg tablet Take 1 Tab by mouth BEFORE BREAKFAST & DINNER., Disp-20 Each, R-0, Print CONTINUE these medications which have CHANGED Details pantoprazole (PROTONIX) 40 mg tablet Take 1 Tab by mouth 2 times daily for 30 days., Disp-60 Tab, R-0, Print CONTINUE these medications which have NOT CHANGED Details acetaminophen-codeine (TYLENOL #3) 300-30 mg per tablet Take 1 Tab by mouth as needed for Pain., Pain, Historical Med FERROUS FUMARATE (IRON ORAL) Take by mouth., Historical Med FOLIC ACID ORAL Take 5 mg by mouth daily., Historical Med nadolol (CORGARD) 20 mg tablet Take 20 mg by mouth daily., Historical Med MDM Number of Diagnoses or Management Options Chronic hepatitis C without mention of hepatic coma: Cirrhosis: GI bleed: Diagnosis management comments: 5 Final diagnoses: GI bleed PCP: Barbra Vaughn MD 06/21/2013 18:19 * Hank Kapadia RN - 06/15/2013 0054 EST [facility] Tap[facility] will to the floor when scan complete. * Hank Kapadia RN - 06/15/2013 0012 EST Pt reasseessed and in NAD. Skin warm and dry. Resp unlabored. Pt AO. Resident at the bedside. Pt upto the bedside commode independently. Pt to [facility] with tech. * Hank Kapadia RN - 06/14/2013 2248 EST Chief Complaint Patient presents with ??? Rectal Bleeding Pt to the ED from [facility]. Pt with rectal bleeding since 399. Pt with hx of the same, admitted [place] [facility] [place] same with inconclusive workup. Pt in NAD. Skin warm adn dry. Resp unlabored. pt Ao. Pt placed on continuous ECG, pulse oximetry and NIBP monitoring. Alarms are on, and alarm parameters adjusted according to initial set of VS obtained upon initiation of monitoring. MD Kelly to the bedside shortly after arrival. Blood drawn via saline lock per protocol, tiger, blue, green, purple and pink tube(s) sent to lab per order. * Waqas Way - 06/14/2013 2230 EST TCALL: ALMA CARBALLO 53 PT XFR FROM [facility]. CC: RECTAL BLEED SINCE 0900. PREVIOUS HISTORY OFSIMILAR WITH NEG. WORKUP AT [facility]. NOW WORKING WITH [facility]. RARE BLOOD TYPE. H/H 10.6 / 37 18g R UPPERARM, 22g L THUMB. 650mg TYLENOL, 3L NS. NS 100/hr 40mg PROTONIX, CEFTRIAXONE 1gm. NOTE TAKEN BY MICHEAL KAPADIA RN (GMD) documented in this encounter Miscellaneous Notes * Plan of Care - Barbara Read - 06/16/2013 1411 EST Focus: Discharge D: Pt noted with discharge orders to home. A: Reviewed discharge paperwork and prescriptions with patient. IV D/C???d Belongings collected and sent home with patient. R: Pt verbalized understanding of discharge paperwork and denied further questions. Pt left floor via ambulation. Barbara Read RN 06/16/2013 14:12 * Plan of Care - Radha Lopez RN - 06/16/2013 0416 EST Problem: CIRCULATORY STATUS Goal: Patient Has Stable Vital Signs And Fluid Balance Data: Patient received 2 units of blood and had EGD yesterday for UGIB. No bowel movements overnight. Action: Medications given per mar including IV protonix. Hemagram drawn Q hrs. Patient aware of need for stool sample to be sent for H.Pylori test. Response:2334 CBC showed H/H increased to 8.9/26.3. Patient resting comfortably overnight, vitals stable. Maintaining saturations on room air. Continue to assess patient's status and intervene accordingly. Collect stool sample. Radha Lopez RN 06/16/2013 4:11 * Plan of Care - Hector Adorno RN - 06/15/2013 1837 EST Problem: CIRCULATORY STATUS Goal: Patient Has Stable Vital Signs And Fluid Balance Outcome: Ongoing D: Pt with; results post 2 units PRBC @ 1620. Lab Results Component Value Date PLT 83* 06/15/2013 Lab Results Component Value Date HGB 8.2* 06/15/2013 Lab Results Component Value Date HCT 24.7* 06/15/2013 Hgb 7.7;HCT @ 0300 on 06/15/13. Per pt report, had dark stools this morning. Pt had EGD this afternoon; has not had BM, only smear of loose brown stool. A: 2 units of PRBC ordered without premedication. Pt NPO until 06/16/13 morning due to EGD today as small esophageal varices were noted. H. Pylori breath test collected and sent; need fecal specimen for h.pylori antigen test. R: Pt received 2 of 2 units. Pt tolerated transfusion well. No signs of reaction. Will continue to monitor, CBC results above @ 1620. Pt aware of need for fecal specimen, will call when he has BM. Hector Adorno RN 06/15/2013 18:31 * Plan of Care - Ghada Mora RN - 06/15/2013 0644 EST Problem: CIRCULATORY STATUS Goal: Patient Has Stable Vital Signs And Fluid Balance Outcome: Ongoing D: Pt with Lab Results Component Value Date PLT 103* 06/15/2013 Lab Results Component Value Date HGB 7.7* 06/15/2013 Lab Results Component Value Date HCT 23.3* 06/15/2013 A: MD Daley notified. 2 units of PRBC ordered without premedication. R: First unit PRBC started. Pt tolerating transfusion well. No signs of reaction. Will continue to monitor, CBC s ordered q6. Ghada Mora RN 06/15/2013 6:42 documented in this encounter Plan of Treatment Upcoming Encounters Date Type Department Care Team (Late st Contact Info) Description 01/23/2024 10:00 EDT Office Visit [facility] General Surgery - [address] [phone] Bon Gutierrez MD [address] [facility], [address] [place] [address] 09/10/2024 10:00 EDT Appointment Shaina Mejia [address] [place] [phone] Pending Results Name Type Priority Associated Diagnoses Date /Time HOLD SST Lab Routine 06/16/2013 8:3 6 EST Scheduled Orders Name Type Priority Associated Diagnoses Orde r Schedule HOLD SST Lab Routine One Time for 1 Occurrences starting 06/16/2013 until 06/16/2013 Scheduled Referrals Name Type Priority Associated Diagnoses Order Schedule PROVIDER FOLLOW-UP INSTRUCTIONS Outpatient Referral Routine Ordered: 06/16/2013 PROVIDER FOLLOW-UP INSTRUCTIONS Outpatient Referral Routine Ordered: 06/16/2013 documented as of this encounter Procedures Procedure Name Priority Date/Time Associated Diagnosis Comments TRANSFUSION RECORD - SCANNED 06/20/2013 13:47 EDT COMPLETE BLOOD COUNT Routine 06/16/2013 11:26 EST INPATIENT ADD-ON Routine 06/16/2013 8:45 EST HELICOBACTER PYLORI IGG ANTIBODY Routine 06/16/2013 6:32 EST COMPLETE BLOOD COUNT Routine 06/16/2013 6:32 EST BUN Routine 06/16/2013 6:32 EST CREATININE Routine 06/16/2013 6:32 EST ELECTROLYTES Routine 06/16/2013 6:32 EST PROCEDURE REPORTS - SCANNED 06/16/2013 0:39 EST COMPLETE BLOOD COUNT Routine 06/15/2013 23:34 EST H. PYLORI BREATH TEST Routine 06/15/2013 17:54 EST SMEAR REVIEW Routine 06/15/2013 16:21 EST COMPLETE BLOOD COUNT Routine 06/15/2013 16:21 EST PREPARE RED BLOOD CELLS Routine 06/15/2013 5:30 EST PREPARE RED BLOOD CELLS Routine 06/15/2013 5:30 EST SCREENING GLUCOSE Routine 06/15/2013 2:3 7 EST DIFFERENTIAL Routine 06/15/2013 2:37 EST COMPLETE BLOOD COUNT Routine 06/15/2013 2:37 EST COMPLETE BLOOD COUNT AND DIFFERENTIAL Routine 06/15/2013 2:37 EST BUN Routine 06/15/2013 2:37 EST CREATININE Routine 06/15/2013 2:37 EST ELECTROLYTES Routine 06/15/2013 2:37 EST ED/URGENT CARE ADD-ON Routine 06/15/2013 1:58 EST NM ACUTE GI BLOOD LOSS Routine 06/15/2013 1:44 EST HOLD SST STAT 06/14/2013 22:45 EST HOLD GREEN TOP STAT 06/14/2013 22:45 EST HOLD BLUE TOP STAT 06/14/2013 22:45 EST PTT Routine 06/14/2013 22:45 EST PROTIME Routine 06/14/2013 22:45 EST COMPLETE BLOOD COUNT STAT 06/14/2013 22:45 EST TYPE AND SCREEN STAT 06/14/2013 22:45 EST documented in this encounter Results * TRANSFUSION RECORD - SCANNED (06/20/2013 13:47 EDT) 06/20/2013 13:4 7 EDT Scan 2 [facility] INFO SERVICE AN D SUPPORT & PHONE RESULT * (ABNORMAL) HEMAGRAM (06/16/2013 11:26 EST) WBC 2.91(L) 4.0 - 10.4 K/cmm [facility] RBC 3.45(L) 4.36 - 5.78 M/cmm [facility] Hemoglobin 9.6(L) 13.8 - 17.3 gm/dl [facility] HCT 28.7(L) 39.5 - 50.2 % [facility] MCV 83 81 - 95 fl [facility] MCH 27.8 27.6 - 33.0 pg [facility] MCHC 33.4 32.8 - 36.4 gm/dl [facility] PLT 98(L) 141 - 320 K/cmm [facility] RDW-CV 18.8(H) 11.8 - 14.1 % [facility] Blood specimen (specimen) 06/16/2013 11:26 EST 06/16/2013 12:01 EST Belle Montano MD HEMATOLOGY & PF4 ORD ERABLES Performing Organization Address [facility] Co de Phone Number [facility] [address] [place] [address] * INPATIENT ADD-ON (06/16/2013 8:45 EST) Tests to be added HPYS [facility] Number for problems [id number] [facility] Accession number [id number] [facility] 06/16/2013 8:45 EST 06/16/2013 8:46 EST Janie Mcgraw MD HEMATOLOGY & PF4 ORDERABLES Performing Organization Address [facility] Co de Phone Number [facility] [address] [place] [address] * HELICOBACTER PYLORI IGG ANTIBODY (06/16/2013 6:32 EST) H. Pylori IgG Ab Negative [facility] Comment:Assayed utilizing [employer] system. 06/16/2013 6:32 EST 06/16/2013 7:40 EST Lester Kelly MD CHEMISTRY & BLOOD GA S ORDERABLES Performing Organization Address [facility] Co de Phone Number [facility] [address] [place] [address] * (ABNORMAL) HEMAGRAM (06/16/2013 6:32 EST) WBC 2.23(L) 4.0 - 10.4 K/cmm [facility] RBC 3.04(L) 4.36 - 5.78 M/cmm [facility] Hemoglobin 8.5(L) 13.8 - 17.3 gm/dl [facility] HCT 25.3(L) 39.5 - 50.2 % [facility] MCV 83 81 - 95 fl [facility] MCH 28.0 27.6 - 33.0 pg [facility] MCHC 33.6 32.8 - 36.4 gm/dl [facility] PLT 77(L) 141 - 320 K/cmm [facility] RDW-CV 19.1(H) 11.8 - 14.1 % [facility] Blood specimen (specimen) 06/16/2013 6:32 EST 06/16/2013 7:41 EST Belle Montano MD HEMATOLOGY & PF4 ORD ERABLES [facility] [address] [place] [address] * CREATININE (06/16/2013 6:32 EST) Creatinine 0.84 0.66 - 1.25 mg/dl [facility] GFR, Calculated >60 >60 ml/min/1.7 3m2 [facility] Blood specimen (specimen) 06/16/2013 6:32 EST 06/16/2013 7:40 EST Adonis Daley MD CHEMISTRY & BLOOD GA S ORDERABLES Performing Organization Address City/[facility]/ZIP Co de Phone Number [facility] [address] [place] [address] * BUN (06/16/2013 6:32 EST) BUN 20 10 - 26 mg/dl [facility] Blood specimen (specimen) 06/16/2013 6:32 EST 06/16/2013 7:40 EST Adonis Daley MD CHEMISTRY & BLOOD GA S ORDERABLES Performing Organization Address [facility] Co de Phone Number [facility] [address] [place] [address] * (ABNORMAL) ELECTROLYTES (06/16/2013 6:32 EST) Sodium 138 136 - 145 mEq/L [facility] Potassium 3.5 3.5 - 5.0 mEq/L [facility] Chloride 112(H) 96 - 110 mEq/L [facility] CO2 23(L) 24 - 32 mEq/L [facility] Blood specimen (specimen) 06/16/2013 6:32 EST 06/16/2013 7:40 EST Adonis Daley MD CHEMISTRY & BLOOD GA S ORDERABLES Performing Organization Address [facility] de Phone Number [facility] [address] [place] [address] * PROCEDURE REPORTS - SCANNED (06/16/2013 0:39 EST) 06/16/2013 0:39 EST Narrative 06/16/2013 2:[address] TECH, SCAN 2 - 06/16/2013 0:39 EST Scan 2 [facility] PROCEDURE/MINOR TY GICAL ORDERABLES * (ABNORMAL) HEMAGRAM (06/15/2013 23:34 EST) WBC 2.93(L) 4.0 - 10.4 K/cmm [facility] RBC 3.15(L) 4.36 - 5.78 M/cmm [facility] LAB Hemoglobin 8.9(L) 13.8 - 17.3 gm/dl [facility] HCT 26.3(L) 39.5 - 50.2 % [facility] MCV 83 81 - 95 fl [facility] MCH 28.1 27.6 - 33.0 pg [facility] MCHC 33.7 32.8 - 36.4 gm/dl [facility] PLT 84(L) 141 - 320 K/cmm [facility] RDW-CV 19.3(H) 11.8 - 14.1 % [facility] Blood specimen (specimen) 06/15/2013 23:34 EST 06/15/2013 23:34 EST Janie Mcgraw MD HEMATOLOGY & PF4 ORDERABLES Performing Organization Address City/[facility] Co de Phone Number [facility] [address] [place] [address] * H. PYLORI BREATH TEST (06/15/2013 17:54 EST) H. pylori Breath Tst Negative Negative [facility] Comment: (Note) Result indicates the absence of current Helicobacter pylori infection. Performed by: [facility] Labs: [facility], [facility], [place] [address], Lab Dir: Richard Allan III, MD Specimen of unknown material (specimen) TOPOGRAPHY UNKNOWN / Unknown 06/15/2013 17:54 EST 06/15/2013 18:46 EST Kait Perkins MD GEN LAB UNIT COLLEC T ORDERABLES Performing Organization Address [facility] de Phone Number [facility] [address] [place] [address] * SMEAR REVIEW (06/15/2013 16:21 EST) Smear scan only: Slide was examined by a technologist to verify the WBC and/or platelet count. [facility] 06/15/2013 16:2 1 EST 06/15/2013 17:17 EST Lester Kelly MD HEMATOLOGY & PF4 ORD ERABLES Performing Organization Address [facility] Co de Phone Number [facility] [address] [place] [address] * (ABNORMAL) HEMAGRAM (06/15/2013 16:21 EST) WBC 3.05(L) 4.0 - 10.4 K/cmm [facility] RBC 2.97(L) 4.36 - 5.78 M/cmm [facility] Hemoglobin 8.2(L) 13.8 - 17.3 gm/dl [facility] HCT 24.7(L) 39.5 - 50.2 % [facility] MCV 83 81 - 95 fl [facility] MCH 27.6 27.6 - 33.0 pg [facility] MCHC 33.2 32.8 - 36.4 gm/dl [facility] PLT 83(L) 141 - 320 K/cmm [facility] RDW-CV 18.9(H) 11.8 - 14.1 % [facility] Blood specimen (specimen) 06/15/2013 16:21 EST 06/15/2013 17:17 EST Lester Kelly MD HEMATOLOGY & PF4 ORD ERABLES Performing Organization Address City/State/[facility] Co de Phone Number [facility] [address] [place] [address] * TRANSFUSE RED BLOOD CELLS (06/15/2013 13:22 EST) Blood specimen (specimen) Adonis Daley MD NURSING TREATMENT - BLOOD ADMINISTRATION * TRANSFUSE RED BLOOD CELLS (06/15/2013 8:57 EST) Blood specimen (specimen) Adonis Daley MD NURSING TREATMENT - BLOOD ADMINISTRATION * PREPARE RED BLOOD CELLS (06/15/2013 5:30 EST) [facility] Signature Product Code E0382 -3 RED BLOOD CELLS, Leukocytes Reduced [facility] Donor Number [id number] [facility] Unit ABO A [facility] Unit Rh POS [facility] Cross Match Interp Compatible [facility] Unit Status Transfuse [facility] 06/15/2013 5:30 EST Provider Unknown BLOOD BANK ORDERABLE S [facility] * PREPARE RED BLOOD CELLS (06/15/2013 5:30 EST) Product Code E0382 -3 RED BLOOD CELLS, Leukocytes Reduced [facility] Donor Number [id number] [facility] Unit ABO A [facility] Unit Rh POS [facility] Cross Match Interp Compatible [facility] Unit Status Transfuse [facility] Blood specimen (specimen) 06/15/2013 5:30 EST Adonis Daley MD BLOOD BANK ORDERABLE S Performing Organization Address City/[facility]/ZIP Co de Phone Number [facility] * DIFFERENTIAL (06/15/2013 2:37 EST) Neutrophils 51.0 45.5 - 79.7 % [facility] Lymphocytes 41.0 15.0 - 46.8 % [facility] Monocytes 6.0 1.8 - 12.0 % [facility] Eosinophils 2.0 0.6 - 6.9 % [facility] ABS Neutrophils 2.69 2.20 - 8.85 K/cmm [facility] ABS Lymphs 2.16 1.09 - 3.30 K/cmm [facility] ABS Monocytes 0.32 0.1 - 0.8 K/cmm [facility] ABS Eosinophils 0.11 0.03 - 0.61 K/cmm [facility] RBC Morphology 2+ [facility] Comment: Anisocytosis 1+ Microcytes 1+ Ovalocytes 1+ Polychromasia WBC Morphology 2+ [facility] Comment:Smudge cells Type of Diff: Manual [facility] 06/15/2013 2:37 EST 06/15/2013 2:45 EST Adonis Daley MD HEMATOLOGY & PF4 ORD ERABLES [facility] [address] [place] [address] * (ABNORMAL) HEMAGRAM (06/15/2013 2:37 EST) WBC 5.28 4.0 - 10.4 K/cmm [facility] RBC 2.78(L) 4.36 - 5.78 M/cmm [facility] Hemoglobin 7.7(L) 13.8 - 17.3 gm/dl [facility] HCT 23.3(L) 39.5 - 50.2 % [facility] MCV 84 81 - 95 fl [facility] MCH 27.9 27.6 - 33.0 pg [facility] MCHC 33.2 32.8 - 36.4 gm/dl [facility] PLT 103(L) 141 - 320 K/cmm [facility] RDW-CV 18.1(H) 11.8 - 14.1 % [facility] 06/15/2013 2:37 EST 06/15/2013 2:45 EST Adonis Daley MD HEMATOLOGY & PF4 ORD ERABLES Performing Organization Address City/[facility] Co de Phone Number [facility] [address] [place] [address] * (ABNORMAL) BUN (06/15/2013 2:37 EST) Pathologist [facility] BUN 33(H) 10 - 26 mg/dl [facility] Blood specimen (specimen) 06/15/2013 2:37 EST 06/15/2013 2:45 EST Adonis Daley MD CHEMISTRY & BLOOD GA S ORDERABLES Performing Organization Address [facility] Co de Phone Number [facility] [address] [place] [address] * CREATININE (06/15/2013 2:37 EST) Pathologist [facility] Creatinine 0.79 0.66 - 1.25 mg/dl [facility] GFR, Calculated >60 >60 ml/min/1.7 3m2 [facility] Blood specimen (specimen) 06/15/2013 2:37 EST 06/15/2013 2:45 EST Lester Kelly MD CHEMISTRY & BLOOD GA S ORDERABLES Performing Organization Address City/[facility]/ZIP Co de Phone Number [facility] [address] [place] [address] * (ABNORMAL) ELECTROLYTES (06/15/2013 2:37 EST) Sodium 140 136 - 145 mEq/L Comment:Sample retested, res ult confirmed Potassium 3.8 3.5 - 5.0 mEq/L Chloride 117(H) 96 - 110 mEq/L Comment:Sample retested, res ult confirmed CO2 23(L) 24 - 32 mEq/L Comment:Sample retested, res ult confirmed Blood specimen (specimen) 06/15/2013 2:37 EST 06/15/2013 2:45 EST Lester Kelly MD CHEMISTRY & BLOOD GA S ORDERABLES * SCREENING GLUCOSE (06/15/2013 2:37 EST) Glucose, Screening 96 70 - 100 mg/dl [facility] Blood specimen (specimen) 06/15/2013 2:37 EST 06/15/2013 2:45 EST Adonis Daley MD CHEMISTRY & BLOOD GA S ORDERABLES Performing Organization Address [facility] Co de Phone Number [facility] [address] [place] [address] * ED/WICC ADD-ON (06/15/2013 1:58 EST) Tests to be added PT, PTT [facility] Number for problems [id number] (ED) [facility] 06/15/2013 1:58 EST 06/15/2013 1:58 EST Lester Kelly MD HEMATOLOGY & PF4 ORD ERABLES Performing Organization Address City/[facility]/ZIP Co de Phone Number [facility] [address] [place] [address] * NM ACUTE GI BLOOD LOSS (06/15/2013 1:44 EST) Anatomical Region Laterality Modality Other 06/15/2013 1:44 EST 06/15/2013 9:42 EST Narrative 06/15/2013 9:42 EST Technique: NM ACUTE GI BLOOD LOSS ??06/15/2013 1:44 AM Signs and Symptoms/Comments: ??GI Bleed After the IV injection of 24.0 mCi Tc-99m labeled autologous RBCs, serial 5-second flow images were obtained for one minute immediately followed by serial 30-second images for one hour. ??Images were reviewed in static and cine loop modes. Findings: There is normal RBC distribution without evidence of active GI bleed. Normal secretion into the urinary bladder is evident. Impression: No evidence of active GI bleeding. I have personally reviewed the images and the above interpretation and agree with the findings. Procedure Note Geovani Snyder MD - 06/15/2013 Technique: NM ACUTE GI BLOOD LOSS 06/15/2013 1:44 AM Signs and Symptoms/Comments: GI Bleed After the IV injection of 24.0 mCi Tc-99m labeled autologous RBCs, serial 5-second flow images were obtained for one minute immediately followed by serial 30-second images for one hour. Images were reviewed in static and cine loop modes. Findings: There is normal RBC distribution without evidence of active GI bleed. Normal secretion into the urinary bladder is evident. Impression: No evidence of active GI bleeding. I have personally reviewed the images and the above interpretation and agree with the findings. Torres Allen MD [facility] NM ORDERABLES * PTT (06/14/2013 22:45 EST) PTT 31 26 - 37 secs [facility] Comment:Therapeutic Heparin range: 65-100 seconds 06/14/2013 22:4 5 EST 06/14/2013 22:55 EST Torres Allen MD HEMATOLOGY & PF4 ORD ERABLES [facility] [address] [place] [address] * (ABNORMAL) PROTIME (06/14/2013 22:45 EST) Pro Time 14.4(H) 9.5 - 13.1 secs [facility] I.N.R. 1.3(H) 0.9 - 1.1 Ratio [facility] Comment: Moderate Intensity Coumadin INR = 2.0-3.0 Adjustments in anticoagulant therapy dose should be based upon the INR and NOT the Pro Time. 06/14/2013 22:4 5 EST 06/14/2013 22:55 EST Torres Allen MD HEMATOLOGY & PF4 ORD ERABLES Performing Organization Address [facility] de Phone Number [facility] [address] [place] [address] * HOLD SST (06/14/2013 22:45 EST) Hold SST Hold for further testing. Specimen will be held for 5 days. [facility] Blood specimen (specimen) 06/14/2013 22:45 EST 06/14/2013 22:55 EST Torres Allen MD LAB INFO SERVICE AND SUPPORT & PHONE RESULT Performing Organization Address [facility] de Phone Number [facility] [address] [place] [address] * HOLD BLUE TOP (06/14/2013 22:45 EST) Hold Blue Top Sample for coagulation will be discarded after 4 hours [facility] Blood specimen (specimen) 06/14/2013 22:45 EST 06/14/2013 22:55 EST Torres Allen MD LAB INFO SERVICE AND SUPPORT & PHONE RESULT Performing Organization Address [facility] de Phone Number [facility] [address] [place] [address] * HOLD GREEN TOP (06/14/2013 22:45 EST) Hold Green Top Hold for further testing. Specimen will be held for 5 days. [facility] Blood specimen (specimen) 06/14/2013 22:45 EST 06/14/2013 22:55 EST Torres Allen MD LAB INFO SERVICE AND SUPPORT & PHONE RESULT Performing Organization Address [facility] Co de Phone Number [facility] [address] [place] [address] * (ABNORMAL) HEMAGRAM (06/14/2013 22:45 EST) WBC 6.59 4.0 - 10.4 K/cmm [facility] RBC 2.97(L) 4.36 - 5.78 M/cmm [facility] Hemoglobin 8.2(L) 13.8 - 17.3 gm/dl [facility] HCT 25.0(L) 39.5 - 50.2 % [facility] MCV 84 81 - 95 fl [facility] MCH 27.7 27.6 - 33.0 pg [facility] MCHC 32.9 32.8 - 36.4 gm/dl [facility] PLT 112(L) 141 - 320 K/cmm [facility] RDW-CV 18.5(H) 11.8 - 14.1 % [facility] Blood specimen (specimen) 06/14/2013 22:45 EST 06/14/2013 22:55 EST Torres Allen MD HEMATOLOGY & PF4 ORD ERABLES Performing Organization Address [facility] Co de Phone Number [facility] [address] [place] [address] * TYPE AND SCREEN (06/14/2013 22:45 EST) ABO A [facility] Rh Factor Positive [facility] Antibody Screen Negative [facility] Comment:sample expires 014 at 23:59. Blood specimen (specimen) 06/14/2013 22:45 EST Torres Allen MD BLOOD BANK TESTS Performing Organization Address [facility]/ZIP Co de Phone Number [facility] documented in this encounter Visit Diagnoses Diagnosis GI bleed- Primary Hemorrhage of gastrointestinal tract, unspecified GI bleed Hemorrhage of gastrointestinal tract, unspecified Chronic hepatitis C without mention of hepatic coma Cirrhosis (HCC-CMS) Cirrhosis of liver without mention of alcohol documented in this encounter Administered Medications Inactive Administered Medications - up to 3 most recent administrations Medication Order MAR Action Action Date Dose Rate Site cefTRIAXone (ROCEPHIN) 1,000 mg in sodium chloride 0.9 % 50 mL IVPB 1,000 mg, intravenous, Administer over 30 Minutes, DAILY, 6 doses, First dose on Tue06/15/13 at 0900, Last dose on Tue06/20/13 at 0900, STAT Given 06/16/2013 8:40 EST 1,000 mg Given 06/15/2013 9:44 EST 1,000 mg folic acid (FOLVITE) tablet 1 mg 1 mg, oral, DAILY, First dose on Tue06/15/13 at 0900, Until Discontinued, STAT Given 06/16/2013 8:46 EST 1 mg Given 06/15/2013 9:44 EST 1 mg meperidine (PF) (DEMEROL) 100 mg/mL injection 25-200 mg 25-200 mg, intravenous, ONCE PRN, 1 dose, Starting on Tue06/15/13 at 1420, Until Tue06/15/13 at 1451, Other, sedation, Routine, Intraprocedure Given 06/15/2013 14:51 EST 75 mg midazolam (PF) (VERSED) 1 mg/mL injection 1-10 mg 1-10 mg, intravenous, ONCE PRN, 1 dose, Starting on Tue06/15/13 at 1420, Until Tue06/15/13 at 1451, Sedation, Routine, Intraprocedure Given 06/15/2013 14:51 EST 4 mg octreotide (SANDOSTATIN) 50 mcg in sodium chloride (NS) 0.9 % 50 mL IVPB 50 mcg, intravenous, Administer over 15 Minutes, NOW X1, 1 dose, On Tue06/15/13 at 0215, STAT Given 06/15/2013 2:53 EST 50 mcg octreotide (SANDOSTATIN) 500 mcg in sodium chloride (NS) 0.9 % 250 mL infusion 50 mcg/hr (rounded to 25 mL/hr), intravenous, CONTINUOUS, Starting on Tue06/15/13 at 0215, Until Tue06/15/13 at 1723, STAT New Bag 06/15/2013 13:17 EST 50 mcg/hr 25 mL/hr Rate Documented 06/15/2013 7:30 EST 50 mcg/hr 25 mL/hr New Bag 06/15/2013 2:53 EST 50 mcg/hr 25 mL/hr pantoprazole (PROTONIX) injection 40 mg 40 mg, intravenous, 2 TIMES DAILY, First dose on Tue06/15/13 at 0900, Until Discontinued, STAT Given 06/16/2013 8:46 EST 40 mg Given 06/15/2013 21:27 EST 40 mg Given 06/15/2013 9:44 EST 40 mg sodium chloride 0.9 % (NS) infusion at 125 mL/hr, intravenous, CONTINUOUS, Starting on Tue06/15/13 at 0215, Until Tue06/15/13 at 1049, STAT Rate Documented 06/15/2013 7:30 EST 125 mL/hr Rate Change 06/15/2013 6:46 EST 75 mL/hr New Bag 06/15/2013 4:20 EST 125 mL/hr sodium chloride 0.9 % BOLUS 1,000 mL 1,000 mL, intravenous, NOW X1, 1 dose, On Tue06/15/13 at 0215, STAT Given 06/15/2013 2:20 EST 1,000 mL documented in this encounter Discontinued Medications Medication Sig Discontinue Reason Start Date End Da te traMADol (ULTRAM-ER) 100 mg tabletIndications:Chronic hepatitis C without mention of hepatic coma,Cirrhosis (HCC-CMS) Take 100 mg by mouth daily as needed. Therapy completed 06/16/2013 pantoprazole (PROTONIX) 40 mg tabletIndications:Chronic hepatitis C without mention of hepatic coma,Cirrhosis (HCC-CMS) Take 40 mg by mouth daily. 06/16/2013 documented as of this encounter Active and Recently Administered Medications Times are shown in EST. Scheduled Medication Order 06/14/2013 06/15/2013 06/16/2013 cefTRIAXone (ROCEPHIN) 1,000 mg in sodium chloride 0.9 % 50 mL IVPB (CANCELED) 1,000 mg, intravenous, Administer over 30 Minutes, DAILY, 6 doses, First dose on Tue06/15/13 at 0900, Last dose on Tue06/20/13 at 0900, STAT 0944 (Given - Provider: eHctor Adorno RN) 0840 (Given - Provider: Barbara Read) folic acid (FOLVITE) tablet 1 mg (CANCELED) 1 mg, oral, DAILY, First dose on Tue06/15/13 at 0900, Until Discontinued, STAT 0944 (Given - Provider: Hector Adorno RN) 0846 (Given - Provider: Barbara Read) Norfloxacin (NOROXIN) tablet 400 mg 400 mg, oral, 2 TIMES DAILY BEFORE BREAKFAST & DINNER, 10 doses, First dose on Tue06/17/13 at 0700, Last dose on Tue06/21/13 at 1600, Routine octreotide (SANDOSTATIN) 50 mcg in sodium chloride (NS) 0.9 % 50 mL IVPB (COMPLETED) 50 mcg, intravenous, Administer over 15 Minutes, NOW X1, 1 dose, On Tue06/15/13 at 0215, STAT 0253 (Given - Provider: Ghada Mora RN) pantoprazole (PROTONIX) injection 40 mg (CANCELED) 40 mg, intravenous, 2 TIMES DAILY, First dose on Tue06/15/13 at 0900, Until Discontinued, STAT 0944 (Given - Provider: Hector Adorno RN)7 (Given - Provider: Radha Lopez RN) 0846 (Given - Provider: Barbara Read) sodium chloride 0.9 % BOLUS 1,000 mL (COMPLETED) 1,000 mL, intravenous, NOW X1, 1 dose, On Tue06/15/13 at 0215, STAT 0220 (Given - Provider: Ghada Mora RN) Continuous Medication Order 06/14/2013 06/15/2013 06/16/2013 octreotide (SANDOSTATIN) 500 mcg in sodium chloride (NS) 0.9 % 250 mL infusion (CANCELED) 50 mcg/hr (rounded to 25 mL/hr), intravenous, CONTINUOUS, Starting on Tue06/15/13 at 0215, Until Tue06/15/13 at 1723, STAT 0253 (New Bag - Provider: Josesito Mora RN)0730 (Rate Documented - Provider: Hector Adorno RN)1317 (New Bag - Provider: Hector Adorno RN)1745 (Completed - Provider: Hector Adorno RN) sodium chloride 0.9 % (NS) infusion (CANCELED) at 125 mL/hr, intravenous, CONTINUOUS, Starting on Tue06/15/13 at 0215, Until Tue06/15/13 at 1049, STAT 0420 (New Bag - Provider: Josesito Mora, MELY)0646 (Rate Change - Provider: Ghada Mora RN - Comment: rate decreased during PRBC transfusion -- infusing in #22 IV with octreotide gtt, pt is a hard stick)0730 (Rate Documented - Provider: Hector Adorno, MELY)1100 (Completed - Provider: Hector Adorno RN) PRN Medication Order 06/14/2013 06/15/2013 06/16/2013 meperidine (PF) (DEMEROL) 100 mg/mL injection 25-200 mg (COMPLETED) 25-200 mg, intravenous, ONCE PRN, 1 dose, Starting on Tue06/15/13 at 1420, Until Tue06/15/13 at 1451, Other, sedation, Routine, Intraprocedure 1451 (Given - Provider: Margareth Tarango RN) midazolam (PF) (VERSED) 1 mg/mL injection 1-10 mg (COMPLETED) 1-10 mg, intravenous, ONCE PRN, 1 dose, Starting on Tue06/15/13 at 1420, Until Tue06/15/13 at 1451, Sedation, Routine, Intraprocedure 1451 (Given - Provider: Margareth Tarango, MELY) documented in this encounter Orders Medications Ordered That Jamison ht Not Have Been Administered Count Last Ordered Date First Ordered Date Norfloxacin (NOROXIN) tablet 400 mg 1 06/16 Acetaminophen (TYLENOL) tablet 650 mg 1 10/2013 ferrous gluconate (FERGON) tablet 324 mg 1 06/15/2013 sodium chloride 0.9 % (NS) infusion 1 06/15 Diet Count Last Ordered Date First Orde red Date DISCHARGE DIET 1 06/16/2013 Nursing Count Last Ordered Date First Orde red Date ACTIVITY INSTRUCTIONS 1 06/16/2013 BATHING INSTRUCTIONS 1 06/16/2013 DRIVING INSTRUCTIONS 1 06/16/2013 CONTRAINDICATION TO ANTICOAG ULATION THERAPY 1 06/15/2013 IV Count Last Ordered Date First Orde red Date IV REQUEST 2 06/15/2013 Admission Count Last Ordered Date First Orde red Date STATUS: INPATIENT ACUTE ADMISSION 1 014 STATUS: ED REQUEST FOR OBSER VATION SERVICES 1 06/14/2013 Transfer Count Last Ordered Date First Orde red Date NOTIFY PPS OF DISCHARGE COMPLETE 1 06/17/19 14 CHANGE ATTENDING TO: 06/15/2013 PPS NOTIFICATION OF PATIENT ARRIVAL ON UNIT 3 06/15/2013 Discharge Count Last Ordered Date First [facility] red Date DISCHARGE PATIENT 1 06/16/2013 Legal Count Last Ordered Date [facility] Date MISCELLANEOUS DISCHARGE INSTRUCTIONS 1 11/2013 documented in this encounter Care Teams Hot Pipe Gauger Relationship Specialty Start Date End Date Barbra Vaughn MD [address] [place] [id number] PCP - General 02/27/13 10/04/13 documented as of this encounter
--- OUTSIDE RECORDS SUMMARY | 2023-12-21 12:11 | XMS_ITS | Encounter Summary ---
Author Organization [facility] Address [address] [place] [address] Care Team Providers Care [place] Worker Name Role Phone Barbra Vaughn MD Primary Care Provider [phone] Encounter Details Date Type Department Care Team (Late st Contact Info) Description 03/15/2013 Results Only [facility] Gastroenterology - [address] [id number] Brody Duran MD PhD [address] [place] [address] [phone] Social History Tobacco Use Types Packs/Day Years [...] 01/23/2024 10:00 EDT Office Visit [facility] General Surgery - [address] [id number] Bon Gutierrez MD [address] [place] [address] [phone] 09/10/2024 10:00 EDT Appointment Shaina Mejia [address] [place] [address] documented as of this encounter Procedures Procedure Name Priority Date/Time Associated Diagnosis Comments HCV GENOTYPE, SERUM Routine 03/14/2013 1 4:34 EST documented in this encounter Results * HCV GENOTYPE, SERUM (03/14/2013 14:34 EST) Hepatitis C Genotype 1a Undetected [facility] Comment: (Note) Testing was done using the Turpin HCV Genotype II Assay. Performed by: [facility] Labs: [facility], [address], [place] [address], Lab Dir: Richard Allan III, MD 03/14/2013 14:3 4 EST 03/14/2013 14:51 EST Brody Duran MD PhD CHEMISTRY & BLO OD GAS ORDERABLES Performing Organization Address City/State/[facility] Co de Phone Number [facility] [address] [place] [address] documented in this encounter Visit Diagnoses Not on filedocumented in this encounter Care Teams [employer]queak Worker Relationship Specialty Start Date End Date Barbra Vaughn MD [address] [place] [address] PCP - General 02/27/13 10/04/13 documented as of this encounter
--- OUTSIDE RECORDS SUMMARY | 2023-12-21 12:11 | XMS_ITS | Encounter Summary ---
Author Organization [facility] Address [address] [place] [address] Care Team Providers Care Graphic Technician Name Role Phone Barbra Vaughn MD Primary Care Provider [phone] Reason for Visit * Reason Comments Cirrhosis New Patient Visit * Consult (Routine) - Closed Specialty Diagnoses / Procedures Referred By Contact Referred To Contact Gastroenterology and Hepatology Diagnoses Cirrhosis (HCC-CMS) Barbra Vaughn MD [address] [place] [address] [address] [place] [address] Brody Duran MD PhD [address] [phone] Referral ID Status Reason Start Date Expiration Date Visits Re quested Visits Authorized [id number] Closed 1 1 Encounter Details Date Type Department Care Team (Late st Contact Info) Description 03/14/2013 14:30 EST Office Visit [facility] Gastroenterology - [facility] [address], [place] [id number] Brody Duran MD PhD [address] [phone] Chronic hepatitis C without mention of hepatic coma (Primary Dx); Cirrhosis (CMS-HCC) (HCC-CMS) Discharge Disposition: Auto Discharge Social History Tobacco [...] Sign Reading Time Taken Comments Blood Pressure 130/64 03/14/2013 1300 EST Pulse 76 03/14/2013 1300 EST Temperature - - Respiratory Rate - - Oxygen Saturation - - Inhaled Oxygen Concentration - - Weight 94.3 kg (208 lb) 03/14/2013 1300 EST Height 158.1 cm (5' 2.25) 03/14/2013 1300 EST Body Mass Index 37.74 03/14/2013 1300 EST documented in this encounter Discharge Diagnoses Diagnosis 070.54 VIR HEP NEC W/O COMA W HEP C CHRON[ICD-9-CM] 571.5 CIRRHOSIS OF LIVER NOS[ICD-9-CM] documented in this encounter Discharge Disposition Disposition Code Departure Means Destination Auto Discharge documented in this encounter Progress Notes * Brody Duran MD - 03/14/2013 1613 EST This office note has been dictated. documented in this encounter Consult Notes * Brody Duran MD - 03/15/2013 0801 EST DIVISION OF GASTROENTEROLOGY CONSULTATION - 03/14/2013 [place] [address] Vaughn, Thank you for asking me to see your patient, Alonzo Urbina, in consultation today. As you know, he is a 57-year-old man with cirrhosis secondary to hepatitis C. The diagnosis of hepatitis C was made in 2001 in [place] during routine laboratory testing. The patient is unaware of the hepatitis C viral genotype, and he does not know whether serology for hepatitis A or B was obtained. 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 He had a prolonged hospitalization at [facility] and ultimately recovered with a disability. 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 He was transferred to [facility] where variceal band ligation was performed, and he was placed on nadolol. He has undergone surveillance endoscopy since that time, most recently in December 2012. He has also undergone surveillance right upper quadrant abdominal ultrasound, most recently in April 2012. There is a history of recurrent rectal bleeding of uncertain etiology. An extensive evaluation at [facility] in the winter of 2012 included an upper endoscopy, colonoscopy, and capsule endoscopy, and no bleeding source was identified. The last episode of hematochezia was appr oximately 3 weeks ago, and it was transient. He has been maintained on iron supplements for management. Past health is otherwise significant for scoliosis, a history of depression and nephrolithiasis. [id number], blood transfusion was performed during back surgery. Other prior surgery include hernia repair. Family history is negative for liver disease. The patient lives with his significant other. There is no history of injection drug use, but there is a history of intranasal cocaine use between 1979 and 1989. There have been periods of heavy ethanol use in the past, lasting up to 2 to 3 years at a time. There was a gap in ethanol use between 1989 and 2011, which was resumed for 1 year. There has been no alcohol for 1 year. Adverse reactions to medications include AMBIEN. Current medications include Nadolol 20 mg daily, ferrous fumarate, pantoprazole, and tramadol. On physical examination, the patient was found to be an obese white man, weight 208 pounds (BMI 37.74), blood pressure 130/64, pulse 76. The skin revealed no spider angiomata. The sclerae were clear.The oropharynx was clear. The neck revealed no lymphadenopathy. Cardiac examination revealed a regular rhythm. The abdomen revealed a prominent venous pattern. There was no obvious ascites. A reducible ventral hernia was present. I could not palpate a liver or spleen. There were no masses or tenderness present. There was no pretibial edema. Laboratory data obtained in February 2013 show white blood cell count 4.5, hematocrit 39, [id number], and laboratory data obtained today show bilirubin 0.5, alkaline phosphatase 112, ALT 64, AST 67, albumin 3.8, creatinine 0.75, glucose 213, INR 1.0. The MELD score was 6 (normal). In summary, Mr Urbina has cirrhosis secondary to chronic hepatitis C, which has been complicated by variceal hemorrhage. Hepatic synthetic function is currently normal. The presence of hyperglycemiatoday is unexpected and raises the possibility that the patient has metabolic syndrome, which can contribute to progressive hepatic fibrosis in the context of chronic liver disease. Weight loss should be encouraged and further evaluation for metabolic syndrome is warranted. There are current contraindications to treatment of hepatitis C, given prior interferon intolerance. However, it would be reasonable to consider antiviral treatment in the future when interferon-freeregimens are available. These will be targeted to hepatitis C viral genotype, and I will arrange for testing today. The patient should also be vaccinated against hepatitis A and B if he is seronegative, and I will arrange for serological testing. The patient is at risk for the development of hepatocellular carcinoma, and I will arrange for surveillance right upper quadrant abdominal ultrasound. I will be in touch with you and him with the results of all testing. If no lesions hepatic lesions are identified, he should have a followup ultrasound in September 2013 and every 6 months thereafter. For prophylaxis against variceal hemorrhage, he should remain on a nonselective beta misbah such as nadolol indefinitely and he should have a surveillance endoscopy in the fall. He has requested that I arrange for this here at [facility]. Based on the history, I do not think that obscure gastrointestinal bleeding is related to a portal hy pertensive etiology. Unless he develops iron deficiency anemia that is refractory to supplementation, I cannot think of another diagnostic test that would be helpful. My only other recommendation is that you continue to monitor him at least every 6 months with a complete blood count, comprehensive metabolic panel, and prothrombin time. Assuming that he remains otherwise stable from the standpointof liver disease, I would like to see him for an office appointment in approximately 1 year. Thank you once again for allowing me to see this patient in consultation with you. Should you have any further questions regarding this evaluation, please feel free to contact me at any time. Sincerely, Brody Duran MD,PhD 04 13 PM - Brody Duran MD,PhD rn Dictation ID: [id number] cc: Barbra Vaughn MD, [address] [address] documented in this encounter Plan of Treatment Upcoming Encounters Date Type Department Care Team (Late st Contact Info) Description 01/23/2024 10:00 EDT Office Visit [facility] General Surgery - [facility] [address], [place] [address] Bon Gutierrez MD [address] [facility], [address] [place] [phone] 09/10/2024 10:00 EDT Appointment Shaina Rubio Mejia [address] [place] [phone] documented as of this encounter Results * HCV RNA QUANT WITH REFLEX TO GENOTYPE (03/14/2013 14:34 EST) [facility] HCV RNA Detect Quant 1,582,168 IU/mL [facility] Comment: Reference Range: ??Undetected The quantification range of this assay is 15 IU/mL to 100,000,000 IU/mL. Testing was performed by the [employer] Ampliprep/Mili TaqMan HCV v2.0 ([employer] Note new version HCV v2.0 in use 01/11/2013. Blood specimen (specimen) 03/14/2013 14:34 EST 03/14/2013 14:51 EST Brody Duran MD PhD CHEMISTRY & BLO OD GAS ORDERABLES [facility] [address] [place] [address] * HEPATITIS B SURFACE ANTIGEN (03/14/2013 14:34 EST) [facility] Hepatitis B Surface Ag Negative [facility] Comment:Reference Range: Neg ative Blood specimen (specimen) 03/14/2013 14:34 EST 03/14/2013 14:51 EST Brody Duran MD PhD CHEMISTRY & BLO OD GAS ORDERABLES Performing Organization Address [facility] de Phone Number [facility] [address] [place] [address] * HEPATITIS B SURFACE ANTIBODY (03/14/2013 14:34 EST) Hepatitis B Surface Antibody REACTIVE [facility] Comment: Reference Range: Unvaccinated: ??Nonreactive Vaccinated: ??Reactive Hepatitis B Antibody Quantitative 105.2 mIU/mL [facility] Comment: Patient is presumed to be immune to infection with HBV. Reference Range: Reactive: ??>=10.0 mIU/mL Nonreactive: ??<10.0 mIU/mL Blood specimen (specimen) 03/14/2013 14:34 EST 03/14/2013 14:51 EST Brody Duran MD PhD CHEMISTRY & BLO OD GAS ORDERABLES Performing Organization Address [facility] de Phone Number [facility] [address] [place] [address] * HEPATITIS A TOTAL ANTIBODY (03/14/2013 14:34 EST) Hep A Antibody Negative [facility] Comment:Reference Range: Neg ative Blood specimen (specimen) 03/14/2013 14:34 EST 03/14/2013 14:51 EST Brody Duran MD PhD CHEMISTRY & BLO OD GAS ORDERABLES Performing Organization Address [facility] de Phone Number [facility] [address] [place] [address] * PROTIME (03/14/2013 14:34 EST) Pro Time 12.0 9.5 - 13.1 secs [facility] I.N.R. 1.0 0.9 - 1.1 Ratio [facility] Comment: Moderate Intensity Coumadin INR = 2.0-3.0 Adjustments in anticoagulant therapy dose should be based upon the INR and NOT the Pro Time. Blood specimen (specimen) 03/14/2013 14:34 EST 03/14/2013 14:51 EST Brody Duran MD PhD HEMATOLOGY & PF 4 ORDERABLES Performing Organization Address [facility]/ZIP Co de Phone Number [facility] [address] [place] [address] * (ABNORMAL) COMPREHENSIVE METABOLIC PANEL (CMP) (03/14/2013 14:34 EST) Potassium 4.1 3.5 - 5.0 mEq/L [facility] Sodium 141 136 - 145 mEq/L [facility] Chloride 106 96 - 110 mEq/L [facility] CO2 24 24 - 32 mEq/L [facility] Total Alkaline Phosphatase 112 38 - 126 U/L [facility] Bilirubin, Total 0.5 0.2 - 1.3 mg/dl [facility] AST 67(H) 15 - 46 U/L [facility] ALT 64 21 - 72 U/L [facility] Albumin 3.8 3.4 - 4.9 g/dl [facility] Total Protein 7.4 6.5 - 8.3 g/dl [facility] Creatinine 0.75 0.66 - 1.25 mg/dl [facility] GFR, Calculated >60 >60 ml/min/1.7 3m2 [facility] BUN 17 10 - 26 mg/dl [facility] Calcium 8.7 8.5 - 10.5 mg/dl [facility] Calculated Calcium 9.3 8.5 - 10.5 mg/dl [facility] Glucose, Serum 213(H) 70 - 100 mg/dl [facility] Fasting? Unknown [facility] Blood specimen (specimen) 03/14/2013 14:34 EST 03/14/2013 14:51 EST Brody Duran MD PhD CHEMISTRY & BLO OD GAS ORDERABLES Performing Organization Address [facility] Co de Phone Number [facility] [address] [place] [address] documented in this encounter Visit Diagnoses Diagnosis Chronic hepatitis C without mention of hepatic coma- Primary Cirrhosis (HCC-CMS) Cirrhosis of liver without mention [...] Take 5 mg by mouth daily. 04/30/2014 traMADol (ULTRAM-ER) 100 mg tabletIndications:Chronic hepatitis C without mention of hepatic coma,Cirrhosis (HCC-CMS) Take 100 mg by mouth daily as needed. 06/16/2013 nadolol (CORGARD) 20 mg tabletIndications:Chronic hepatitis C without mention of hepatic coma,Cirrhosis (HCC-CMS) Take 20 mg by mouth daily. 01/29/2014 pantoprazole (PROTONIX) 40 mg tabletIndications:Chronic hepatitis C without mention of hepatic coma,Cirrhosis (HCC-CMS) Take 40 mg by mouth daily. 06/16/2013 added in this encounter Care Teams Graphic Technician Relationship Specialty Start Date End Date Barbra Vaughn MD [address] [place] [address] PCP - General 02/27/13 10/04/13 documented as of this encounter
--- NOTE | 2023-12-21 12:15 | ED.GENADUL_ITS ---
Discharge Plan Disposition Patient Disposition: Home Condition: Stable Discharge Details Clinical Impression: Fracture of right clavicle Primary Care Provider: George Lou ED Provider: Abdiaziz Madrid Home Meds and New Rx's Prescriptions: New oxycodone 5 mg tablet 5 mg PO Q6H PRN (Reason: acute pain; fracture) 7 Days Qty: 28 0RF Continued Centrum Silver 0.4-300-250 mg-mcg-mcg tablet 1 tab PO DAILY sucralfate 1 gram Tablet 1 g PO AC & HS 30 Days Qty: 120 1RF pantoprazole 40 mg tablet,delayed release (DR/EC) 40 mg PO BID 30 Days Qty: 60 1RF atorvastatin 20 mg tablet 20 mg PO DAILY Invokana 100 mg tablet 100 mg PO DAILY lisinopril 10 mg tablet 10 mg PO DAILY Lumigan 0.01 % drops 1 drp ophthalmic (eye) DAILY Discharge Instructions Instructions: Oxycodone, Broken Collarbone ED Additional Instructions: You were seen in the emergency department for your fractured right clavicle. You need to remain in the ER sling for the next 4 to 6 weeks at minimum, that will likely have some lingering pain from the 6th through 12th week. Please follow-up with your primary care provider or outpatient orthopedic visit for routine imaging to ensure routine healing of this fracture. Please use therapeutic dosing of Tylenol (acetamenophen) & Advil (ibuprofen) in an alternating fashion as follows: Take 1000mg of Tylenol every 6 hours without missing doses- that is 4 times per day. Senior [facility] in between the Tylenol dosings, take 400-600mg of Advil also on a 6 hour schedule, that is also 4 times per day. The daily maximum dosing of Tylenol is 4000mg, and the daily maximum dosing of Advil is 2400mg. This is safe to do for weeks. Please note that some common cold medications & prescription pain medications may contain acetamenophen and you need to read OTC drug labels and factor that in to maximum daily dosings. I have sent you home with a small prescription of an opiate pain medication called oxycodone, please take a stool softener while on this medication, please return to the emergency department for any signs of neurovascular compromise of the right upper extremity Referrals: [facility] [Provider Group] George Lou [Primary Care Provider] - Discharge Data Discharge Date/Time-TO BE ENTERED AT DEPARTURE: 12/21/23 14:46 HPI General Date/Time Provider Initiated Documentation: 12/21/23 12:00 . HPI Narrative: 68 year-old male presents to ED today by POV/ambulating with a chief complaint of slip and fall on wet grass with pain to R collarbone area with onset just tami or to arrival. Quality described as pain in shoulder, denies headstrike/LOC, no radiation to neck pain, nausea/vomiting, slurred speech, altered mentation, complete numbness to arm. Severity is described as 10/10. Palliating factors include nothing specific attempted yet. Provoking factors include nothing specific. Patient not anticoagulated. Related Data Home Medications ?Medication ?Instructions ?Recorded ?Confirmed [id number]-[id number]-ltywa acid 0.4 1 tab PO DAILY 11/16/19 12/21/23 mg-lycopene 300 mcg-lutein 250 mcg tablet (Centrum Silver) atorvastatin 20 mg tablet 20 mg PO DAILY 08/19/23 12/21/23 bimatoprost 0.01 % eye drops 1 drp ophthalmic (eye) DAILY 08/19/23 12/21/23 (Lumigan) canagliflozin 100 mg tablet 100 mg PO DAILY 08/19/23 12/21/23 (Invokana) lisinopril 10 mg tablet 10 mg PO DAILY 08/19/23 12/21/23 pantoprazole 40 mg tablet,delayed 40 mg PO BID 30 days #60 tabs 08/29/23 12/21/23 release sucralfate 1 gram tablet 1 g PO AC & HS 30 days #120 tabs 08/29/23 12/21/23 oxycodone 5 mg tablet 5 mg PO Q6H PRN acute pain; 12/21/23 fracture 7 days #28 tabs Previous Rx's ?Medication ?Instructions ?Recorded pantoprazole 40 mg tablet,delayed 40 mg PO BID 30 days #60 tabs 08/29/23 release sucralfate 1 gram tablet 1 g PO AC & HS 30 days #120 tabs 08/29/23 oxycodone 5 mg tablet 5 mg PO Q6H PRN acute pain; 12/21/23 fracture 7 days #28 tabs Allergies Allergy/AdvReac Type Severity Reaction Status Date / Time zolpidem (From Ambien) AdvReac Other (See Verified 12/21/23 12:02 Comment) General Stated Complaint: Orthopedic BAKARI: 3 Review of Systems All systems reviewed & are unremarkable except as noted in HPI and below Exam Narrative Exam Narrative: GENERAL APPEARANCE: Well-nourished, non-toxic, awake and alert, atraumatic, no acute distress. SKIN: Warm, pink, dry, intact, without rashes/lesions/ulcerations. HEAD: Normocephalic, atraumatic, normal hair distribution for gender/age. EYES: Normal conjunctiva, no exudates on lids/lashes. ENT: Nares patent, no circumoral cyanosis, no facial swelling NECK: Supple, trachea midline, painless cervical ROM. LUNGS/CHEST: Lungs CTA bilaterally- no focally diminished or absent lung sounds, non-labored respirations, normal A/P diameter, symmetrical expansion, no chest wall deformity HEART (CV/PV): Regular rate and rhythm without murmur, no peripheral edema, no JVD. ABDOMEN: Soft, non-distended, no guarding. MSK: Normal ROM, no swelling/deformity to bilateral UEs or LEs, moving all extremities without weakness, no cyanosis, spine midline without tenderness, normal curvature, tenderness around the proximal to mid shaft of right clavicle without skin tenting or ecchymosis, diffuse right shoulder tenderness without overt swelling, deformity, crepitus, no skin changes to the right upper extremity, right radial pulse 2+, no midline vertebral tenderness/crepitus/step- offs NEURO: Mental Status AAOx4 - alert to person, place, time, events No facial droop, no forehead involvement. Motor: No focal weakness - strength 5/5 in bilateral UEs and LEs, proximal and distal, symmetric. Sensory: sensation intact to light touch globally. Gait normal: patient ambulated without ataxia into ED room. PSYCH: euthymic, cooperative, pleasant, appropriate speech Course Vital Signs Vital signs: Vital Signs Temperature 37.5 C 12/21/23 11:56 Pulse 76 12/21/23 11:56 Respiratory Rate 14 12/21/23 11:56 Blood Pressure 179/81 H 12/21/23 11:56 Pulse Oximetry 96 12/21/23 11:56 Temperature 37.5 C 12/21/23 11:56 Pulse 76 12/21/23 11:56 Respiratory Rate 14 12/21/23 11:56 Respiratory Effort Normal 12/21/23 12:04 Blood Pressure 179/81 H 12/21/23 11:56 Pulse Oximetry 96 12/21/23 11:56 Oxygen Delivery Method Room Air 12/21/23 11:56 Oxygen Flow Rate 0 12/21/23 11:56 Pain Level 9 12/21/23 11:56 Comment 10 with movement 12/21/23 11:56 Medical Decision Making This dictation utilizes [id number] dictation software and may contain unedited grammatical errors. 68 year-old male presents to ED today by POV/ambulating with a chief complaint of slip and fall on wet grass with pain to R collarbone area with onset just prior to arrival. Quality described as pain in shoulder, denies headstrike/LOC, no radiation to neck pain, nausea/vomiting, slurred speech, altered mentation, complete numbness to arm. Severity is described as 10/10. Palliating factors include nothing specific attempted yet. Provoking factors include nothing specific. Patients' medical history: noncontributory. Family and social history: noncontributory. Pertinent exam findings / vital signs include tenderness around the right clavicle without skin tenting, right radial pulse 2+, no gross deformity of the right upper extremity, no midline vertebral neck tenderness. Differential / pathologies of concern include fracture, sprain/strain. Diagnostic studies of: -XR R shoulder and clavicle, shows mildly displaced proximal clavicle fracture. Interventions of: -Reviewed images with orthopedics on-call Dr. Be, recommends sling and outpatient follow-up. ED Course/Assessment/Plan: 68-year-old male suffered a fall on grass and has a mildly displaced right proximal clavicle fracture without skin tenting or other signs of neurovascular compromise and he is placed in a sling, given a short course of cardiac pain medicine for acute fracture and recommend therapeutic dosing of Tylenol and ibuprofen and RICE therapy, recommend follow-up with orthopedics or return to ED criteria for any further trauma to the area, signs of neurovascular compromise of the right upper extremity. Findings not consistent with neurovascular compromise, vertebral injury, pneumothorax. Disposition of Fracture of Right Clavicle. Patient verbalized understanding of the plan and return to ED criteria and engaged in shared decision making. Medical Records Medical records reviewed: Yes I reviewed the patient's medical records. Imaging Data Radiologic Study: Attestation: I personally reviewed and interpreted this imaging study as follows: Imaging: X-Ray Radiologist's impression: Exam(s) XR SHOULDER RT COMPLETE 2+V ADDENDUM: Two more views were submitted. There is a mildly displaced fracture of the proximal end of the clavicle. No additional fractures are identified. Glenohumeral joint space is maintained. There is spurring at the glenoid. Prior resection of the distal clavicle. Impression: Proximal clavicle fracture. Dictated By: Hollie Rodriguez M.D. Hollie Rodriguez M.D.12/21/23 1300 Transcribed By: Hollie Rodriguez Exam(s) XR SHOULDER RT COMPLETE 2+V EXAM: XR SHOULDER RT COMPLETE 2+V CLINICAL HISTORY: R shoulder injury. TECHNIQUE: 2D digital imaging was performed. Single AP view. Limited exam due to patient discomfort. COMPARISON: CR XR SHOULDER LT COMPLETE 2+V from 11/02/2019 FINDINGS: BONES: No acute fracture is present. No bony destructive lesion is seen. Prior resection of the distal clavicle. Degenerative changes noted at glenohumeral joint. JOINTS: No dislocation present. SOFT TISSUE: Normal. IMPRESSION: Limited exam. No acute abnormality. Radiologic Study #2: Attestation: I personally reviewed and interpreted this imaging study as follows: Imaging: X-Ray Radiologist's impression: EXAM: XR CLAVICLE RT CLINICAL HISTORY: R clavicle fracture TECHNIQUE: 2D digital imaging was performed. Two views COMPARISON: CR XR CLAVICLE LT from 01/22/2020 FINDINGS: Mildly displaced fracture at the proximal clavicle. The prior surgical resection of the distal clavicle. No additional fractures. Degenerative changes of the glenohumeral joint. IMPRESSION: Proximal clavicle fracture. Quality:SDOH Health Related Social Needs: No Data to Display PFSH All Active Problems (Updated 12/21/23 @ 14:24 by QUYNH Hale) Fracture of right clavicle (Acute) Cholelithiasis (Acute) Gastritis (Acute) Esophageal reflux (Chronic) Esophagitis (Acute) Left rotator cuff tear (Acute) Duodenal ulcer disease (Acute) Gallstones (Chronic) Esophageal varices (Chronic) Cirrhosis (Chronic) Medical History (Updated 12/21/23 @ 14:24 by QUYNH Hale) Melena Nausea & vomiting Hx of caloric malnutrition Anemia Red blood cell antibody positive with compatible PRBC difficult to obtain Drug abuse Left inguinal hernia Hepatitis C Fully treated Hx of non-insulin dependent diabetes mellitus Hx of pneumothorax History of rib fracture Hx of fracture of clavicle Scoliosis Hepatic encephalopathy Pancytopenia Red blood cell antibody positive with compatible PRBC difficult to obtain History of GI bleed variceal Surgical History (Updated 08/30/23 @ 00:08 by PARAMJIT BARILLAS) S/P TIPS (transjugular intrahepatic portosystemic shunt) Has ultrasound done every 6 months last done 01/09/20 Hx of basal cell carcinoma excision Hx of Achilles tendon repair History of esophagogastroduodenoscopy (EGD) (~01/16/20) multiple Previous back surgery S/P hernia repair S/P shoulder surgery Family History Mother Breast cancer Sister Breast cancer Heart disease Diabetes Sister Breast cancer Hypertension Brother Cancer leukemia Brother Heart disease Diabetes Hypertension Maternal Grandmother Heart disease Father Diabetes Hypertension Social History Smoking/Tobacco Use Status: Never Smoking risk assessment performed?: Yes Alcohol Intake: former Year quit: 2019 Drug use: Current Sobriety Substance use type: does not use and former substance user Details: 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 Housing: house Current gender identity: male Do you feel safe at home: Yes Do you feel safe in your relationship?: Yes
[2023-12-21] MEDS: oxyCODONE 5 MG TAB PO (12:22)
[2023-12-21] MEDS: Ketorolac 10 MG TAB PO (12:22)
[2023-12-21] MEDS: Acetaminophen 500 MG TAB 1000 MG PO (12:22)
--- NOTE | 2023-12-21 12:45 | DI.RAD_ITS ---
Exam(s) XR CLAVICLE RT EXAM: XR CLAVICLE RT CLINICAL HISTORY: R clavicle fracture TECHNIQUE: 2D digital imaging was performed. Two views COMPARISON: CR XR CLAVICLE LT from 01/22/2020 FINDINGS: Mildly displaced fracture at the proximal clavicle. The prior surgical resection of the distal clavi cindy. No additional fractures. Degenerative changes of the glenohumeral joint. IMPRESSION: Proximal clavicle fracture. DATA REPOSITORY: RADIATION DOSE DELIVERED:
== END 2023-12-21 14:46 | disposition home or self-care (01) ==
PROVIDERS: Emergency Provider Physician Assistant; PCP Physician Assistant
DX: S42.021A Displaced fracture of shaft of right clavicle, initial encounter for closed fracture (principal); W01.0XXA Fall on same level from slipping, tripping and stumbling without subsequent striking against object, initial encounter
CPT/HCPCS: 99284; 73000; 73030; 99283

== ENCOUNTER 2024-01-03 14:20 | Outpatient (CLI) | payer OTHER, SELFPAY ==
--- NOTE | 2024-01-03 13:53 | DI.RAD_ITS ---
Exam(s) XR CLAVICLE RT EXAM: XR CLAVICLE RT CLINICAL HISTORY: F/U FRACTURE. TECHNIQUE: 2D digital imaging was performed. COMPARISON: CR XR CLAVICLE RT from 12/21/2023 FINDINGS: Two views Again noted is surgical absence of the lateral aspect of the right clavicle. The medial clavicle fracture site appears slightly more distracted than previous. No new additional fractures evident. IMPRESSION: Compared to 12/21/2023 there is some widening of the fracture space in the medial aspect of the right clavicle. No callus formation evident. DATA REPOSITORY: RADIATION DOSE DELIVERED:
== END 2024-01-03 14:21 | disposition home or self-care (01) ==
LOC: DIORS 14:20
PROVIDERS: PCP Physician Assistant; Visit Provider Physician Assistant
DX: S42.022D Displaced fracture of shaft of left clavicle, subsequent encounter for fracture with routine healing (principal); X58.XXXD Exposure to other specified factors, subsequent encounter
CPT/HCPCS: 73000

== ENCOUNTER 2024-01-10 08:02 | Emergency (ER) | payer OTHER, SELFPAY ==
[2024-01-10 08:05] VITALS: BP 142/87; PULSE 85; RESP 12; TEMP 36.6; O2SAT 99
--- NOTE | 2024-01-10 08:11 | ED.GENADUL_ITS ---
Discharge Plan Disposition Patient Disposition: Home Condition: Stable Discharge Details Clinical Impression: Gastroenteritis Primary Care Provider: George Lou ED Provider: Abdiaziz Madrid Home Meds and New Rx's Prescriptions: New ondansetron 4 mg tablet,disintegrating 4 mg PO Q8H PRNQty: 30 0RF Continued Centrum Silver 0.4-300-250 mg-mcg-mcg tablet 1 tab PO DAILY sucralfate 1 gram Tablet 1 g PO AC & HS 30 Days Qty: 120 1RF pantoprazole 40 mg tablet,delayed release (DR/EC) 40 mg PO BID 30 Days Qty: 60 1RF atorvastatin 20 mg tablet 20 mg PO DAILY Invokana 100 mg tablet 100 mg PO DAILY lisinopril 10 mg tablet 10 mg PO DAILY Lumigan 0.01 % drops 1 drp ophthalmic (eye) DAILY Discharge Instructions Instructions: Ondansetron, Diarrhea, Adult ED, Nausea and Vomiting, Adult ED Additional Instructions: You were seen in the emergency department for your diarrhea for the past 2 days as well as some developing vomiting today. You had diffuse abdominal discomfort but nothing seen on CT, your labs are reassuring for no severe infection, no major electrolyte abnormalities. I am prescribing you a dissolving tablet that goes under your tongue called ondansetron sent to your pharmacy-please dissolve 1 of these tablets under your tongue every 8 hours, about 20 to 30 minutes after having this tablet you should attempt taking other medications or getting some food and hydration. Do not overwhelm your stomach, take small sips like 1 tablespoon of Gatorade every 10 minutes or so, do not have large meals, trying to take small amounts of food slowly over time. If your abdominal pain is severely worsening or you cannot tolerate any p.o. intake despite the medicine we have prescribed you may need to be reevaluated at the emergency room, please return for any fever, shortness of breath, chest pain or other emergent concerns. Referrals: George Lou [Primary Care Provider] - [facility] General Date/Time Provider Initiated Documentation: 01/10/24 08:05 . HPI Narrative: 68 year-old male presents to ED today by POV/ambulating with a chief complaint of intractable vomiting, central abdominal pain with onset yesterday. Patient states he has had a bleeding ulcer back in August but that resolved completely. Quality described as centralized abdominal pain, intractable vomiting, like his stomach is on fire, no radiation to fever, shortness of breath, cough, bowel changes, dysuria, urinary retention, hematemesis, coffee-ground emesis. Severity is described as severe- patient currently has a fractured R clavicle (seen here 12/20 by me- non-adherent to sling today) and states abdominal pain is worse. Palliating factors include hasn't been able to keep his medicines down. Provoking factors include nothing specific. Patient not anticoagulated. Related Data Home Medications ?Medication ?Instructions ?Recorded ?Confirmed ltarrrgh-umk-zmaph acid 0.4 1 tab PO DAILY 11/16/19 01/10/24 mg-lycopene 300 mcg-lutein 250 mcg tablet (Centrum Silver) atorvastatin 20 mg tablet 20 mg PO DAILY 08/19/23 01/10/24 bimatoprost 0.01 % eye drops 1 drp ophthalmic (eye) DAILY 08/19/23 01/10/24 (Lumigan) canagliflozin 100 mg tablet 100 mg PO DAILY 08/19/23 01/10/24 (Invokana) lisinopril 10 mg tablet 10 mg PO DAILY 08/19/23 01/10/24 pantoprazole 40 mg tablet,delayed 40 mg PO BID 30 days #60 tabs 08/29/23 01/10/24 release sucralfate 1 gram tablet 1 g PO AC & HS 30 days #120 tabs 08/29/23 01/10/24 ondansetron 4 mg disintegrating 4 mg PO Q8H PRN #30 tabs 01/10/24 tablet Previous Rx's ?Medication ?Instructions ?Recorded pantoprazole 40 mg tablet,delayed 40 mg PO BID 30 days #60 tabs 08/29/23 release sucralfate 1 gram tablet 1 g PO AC & HS 30 days #120 tabs 08/29/23 ondansetron 4 mg disintegrating 4 mg PO Q8H PRN #30 tabs 01/10/24 tablet Allergies Allergy/AdvReac Type Severity Reaction Status Date / Time zolpidem (From Ambien) AdvReac Other (See Verified 01/10/24 08:09 Comment) General Stated Complaint: Abd Prob BAKARI: 3 Review of Systems All systems reviewed & are unremarkable except as noted in HPI and below Exam Narrative Exam Narrative: GENERAL APPEARANCE: Well-nourished, non-toxic, awake and alert, atraumatic, no acute distress. SKIN: Warm, pink, dry, intact, without rashes/lesions/ulcerations. HEAD: Normocephalic, atraumatic, normal hair distribution for gender/age. EYES: Normal conjunctiva, no exudates on lids/lashes. ENT: Nares patent, no circumoral cyanosis, no facial swelling NECK: Supple, trachea midline, painless cervical ROM. LUNGS/CHEST: Lungs CTA bilaterally-no rhonchi/rales/wheezes diffusely, non- labored respirations, normal A/P diameter, symmetrical expansion, no chest wall deformity HEART (CV/PV): Regular rate and rhythm without murmur, no peripheral edema, no JVD. ABDOMEN: Soft, non-distended, no guarding, diffuse upper abdominal tenderness without Gonsalez sign, no rebound tenderness or Rovsing's. MSK: Normal ROM, no swelling/deformity to bilateral UEs or LEs, moving all extremities without weakness, no cyanosis, spine midline without tenderness, normal curvature. NEURO: Mental Status AAOx4 - alert to person, place, time, events No facial droop, no forehead involvement. Motor: No focal weakness - strength 5/5 in bilateral UEs and LEs, proximal and distal, symmetric. Sensory: sensation intact to light touch globally. Gait normal: patient ambulated without ataxia into ED room. PSYCH: euthymic, cooperative, pleasant, appropriate speech Course Vital Signs Vital signs: Vital Signs Temperature 36.6 C 01/10/24 08:05 Pulse 85 01/10/24 08:05 Respiratory Rate 12 01/10/24 08:05 Blood Pressure 142/87 H 01/10/24 08:05 Pulse Oximetry 99 01/10/24 08:05 Temperature 36.6 C 01/10/24 08:05 Temperature Source Oral 01/10/24 08:05 Pulse 85 01/10/24 08:05 Respiratory Rate 12 01/10/24 08:05 Blood Pressure 142/87 H 01/10/24 08:05 Blood Pressure Position Sitting 01/10/24 08:05 Pulse Oximetry 99 01/10/24 08:05 Oxygen Delivery Method Room Air 01/10/24 08:05 Oxygen Flow Rate 0 01/10/24 08:05 Pain Level 8 01/10/24 08:05 Medical Decision Making This dictation utilizes [id number] dictation software and may contain unedited grammatical errors. 68 year-old male presents to ED today by POV/ambulating with a chief complaint of intractable vomiting, central abdominal pain with onset yesterday. Patient states he has had a bleeding ulcer back in August but that resolved completely. Quality described as centralized abdominal pain, intractable vomiting, like his stomach is on fire, no radiation to fever, shortness of breath, cough, bowel changes, dysuria, urinary retention, hematemesis, coffee-ground emesis. Severity is described as severe- patient currently has a fractured R clavicle (seen here 12/20 by me- non-adherent to sling today) and states abdominal pain is worse. Palliating factors include hasn't been able to keep his medicines down. Provoking factors include nothing specific. Patients' medical history: History of treated hepatitis C, T2DM, history of right clavicle fracture,, history of bleeding upper abdominal ulcer, cholelithiasis, cirrhosis, esophageal varices. Family and social history: noncontributory. Pertinent exam findings / vital signs include hypoactive bowel sounds, diffuse upper abdominal and umbilical tenderness without Rovsing's or rebound tenderness, no CVA tenderness to percussion bilaterally, benign cardiopulmonary exam, neuro intact. Differential / pathologies of concern include gastritis/duodenitis, gastroenteritis, SBO, mesenteric ischemia, gastroparesis, biliary tree pathology. Diagnostic studies of: -CBC, BMP, liver panel, magnesium, lactate, procalcitonin, lipase, urinalysis, troponin I, CT ABD/Pelvis w/ contrast. -CBC shows no leukocytosis, no anemia, do not suspect profound bleeding -Lactate 4.0-suspect cirrhosis as cause for chronic lactate elevation, procalcitonin negative do not suspect sepsis -Lipase within normal limits -Chronically elevated bilirubin slightly above baseline at 2.16 with conjugated bilirubin of 0.6 slightly above past readings of 0.5 -CMP shows normal renal function, no major electrolyte abnormalities -UA shows glucose spilling, no sign of UTI, small amounts of bilirubin, proteinuria and ketonuria -CT shows some fluid in the stomach and proximal small bowel but no evidence of obstruction, cholelithiasis without cholecystitis, normal CBD diameter Interventions of: -1L IVF LR, 1g IV APAP, 15mg IV ketorlac, 4mg IV Zofran without relief > added 10mg IV Reglan & 25mg IV Benadryl, 6mg IV Morphine, states pain under control but still nauseous. ED Course/Assessment/Plan: 68-year-old male presents with intractable nausea and vomiting for couple days that started with diarrhea. He has diffuse abdominal discomfort, CT is negative for any obstruction, negative for any common bile duct pathology, he did have a lactate of 4.0 which I suspect was elevated in the setting of cirrhosis and vomiting which responded well to 1 L of IV fluid and was trending downward when rechecked with 500+ milliliters to go on second liter. He responded well to antiemetics and passed p.o. challenge, counseled him on likely GI illness but to have a low threshold to return, I did prescribe him p.o. antiemetics to go home with. Findings not consistent with mesenteric ischemia, no pain out of proportion, not consistent with sepsis, procalcitonin negative, no leukocytosis, not consistent with cholangitis, not consistent with major electrolyte abnormality. Disposition of Gastroenteritis. Patient verbalized understanding of the plan and return to ED criteria and engaged in shared decision making. Medical Records Medical records reviewed: Yes I reviewed the patient's medical records. Imaging Data Radiologic Study: Attestation: I personally reviewed and interpreted this imaging study as follows: Imaging: CT Scan Radiologist's impression: EXAM: CT ABDOMEN PELVIS W CLINICAL HISTORY: epigastric pain, intractable vomiting. TECHNIQUE: Imaging Protocol: Axial computed tomography images with coronal and sagittal reformatted images were created and reviewed CONTRAST MATERIAL: Intravenous: Omnipaque 350 Contrast volume:100 ml Oral: yes / no COMPARISON: CT CT ABDOMEN PELVIS W from 08/21/2023 FINDINGS: ABDOMEN and PELVIS: Lung Bases: Lung bases show minimal atelectasis thickening of the wall of the distal esophagus. Liver: Tips. Liver has a cirrhotic appearance. No suspicious mass. Gallbladder and biliary tract: Cholelithiasis. No evidence of wall thickening. No biliary dilation. Pancreas: Normal density. No abnormal calcifications or inflammatory process. No evidence of mass. Metallic artifact noted adjacent to the head of the pancreas Spleen: Normal. Kidneys: Multiple stones noted in the left kidney, largest at the upper pole. Small bilateral cysts again noted. No obstructive uropathy. No suspicious masses seen. Adrenal glands: No masses seen. Vasculature: Abdominal aorta non-dilated. Soft tissues: Small fat containing left inguinal hernia. Bladder: No gross wall thickening. No calculi.No focal mass. Bowel: Stomach contains fluid but is not over distended. Proximal small bowel loops also contain fluid. No findings to suggest obstruction. No bowel wall thickening. Peritoneal cavity: No ascites. No focal collection. No mesenteric inflammatory response. Bones: Hips scoliosis and degenerative changes. Reproductive organs: Bilateral hydroceles. Lymph nodes: No pathologically enlarged lymph nodes. IMPRESSION:: Wall thickening of the distal esophagus could indicate esophagitis. No evidence of perforation. There is fluid in the stomach and pro ximal small bowel but no findings to suggest obstruction. Cholelithiasis without evidence of acute cholecystitis. Left nephrolithiasis. No evidence of hydronephrosis. Lab Data Lab results reviewed: Yes I reviewed the patient's lab results. Labs: Laboratory Tests Range/Units 01/10/24 01/10/24 01/10/24 08:23 08:30 08:30 WBC (4.4-10.8) 10^3/uL 10.47 RBC (4.36-5.78) 10^6/uL 4.74 Hgb (13.5-17.5) g/dL 15.6 Hct (40.0-50.0) % 43.1 MCV (80-95) fL 91 MCH (27.0-33.0) pg 32.9 MCHC (32.0-36.0) % 36.2 H RDW (11.8-14.1) % 13.4 Plt Count (130-400) 10^3/uL 204 MPV (8.0-11.0) fL 8.5 Immature Gran % % 0.3 Neutrophils % % 84.3 Lymphocytes % % 8.7 Monocytes % % 6.2 Eosinophils % % 0.3 Basophils % % 0.2 Nucleated RBC % (0.0-0.3) % 0.0 Absolute Neutrophils (1.2-6.7) 10^3/uL 8.83 H Absolute Lymphocytes (1.2-3.4) 10^3/uL 0.91 L Absolute Monocytes (0.1-0.8) 10^3/uL 0.65 Absolute Eosinophils (0.0-0.7) 10^3/uL 0.03 Absolute Basophils (0.0-0.2) 10^3/uL 0.02 VBG Lactate (0.6-1.4) mmol/L 4.0 H* Sodium (136-145) mmol/L 136 Potassium (3.5-5.1) mmol/L 3.9 Chloride (98-107) mmol/L 101 Carbon Dioxide (21.0-32.0) mmol/L 21.7 Anion Gap (3-11) mmol/L 13.3 H BUN (7-18) mg/dL 19 H Creatinine (0.70-1.30) mg/dL 1.2 Est GFR (CKD-EPI 2020) (mL/min/1.73m2) 65.06 Glucose (74-106) mg/dL 135 H Calcium (8.5-10.1) mg/dL 9.6 Magnesium (1.8-2.4) mg/dL 1.8 Total Bilirubin (0.2-1.0) mg/dL 2.16 H Conjugated Bilirubin (0.0-0.2) mg/dL 0.6 H AST (15-37) U/L 43 H ALT (16-63) U/L 42 Alkaline Phosphatase (46-116) U/L 118 H Troponin I (<or=76) ng/L 13 Cancelled Total Protein (6.4-8.2) g/dL 7.7 Albumin (3.4-5.0) g/dL 3.7 Lipase (16-77) U/L 58 Procalcitonin ng/mL < 0.1 Urine Color (Yellow) Yellow Urine Clarity (Clear) Sl Cloudy Urine pH (5-8) 5.5 Ur Specific [place] (1.005-1.025) >= 1.030 H Urine Protein (Neg-Trace) mg/dL 30 H Urine Ketones (Negative) mg/dL 40 H Urine Blood (Negative) Negative Urine Nitrite (Negative) Negative Urine Bilirubin (Negative) Small H Urine Urobilinogen (Up to 0.2) mg/dL 0.2 Ur Leukocyte Esterase (Negative) Negative Urine RBC (0-2) HPF 0-2 Urine WBC (0-5) HPF 3-5 Ur Epithelial Cells (Negative) HPF Rare Urine Crystals (Negative) HPF Negative Urine Bacteria (Negative) HPF Few Urine Casts (Negative) LPF 0-2 Hyaline Urine Mucus (Negative) Trace Urine Other (Negative) Rare Transitional Ur Culture Indicated? No Urine Glucose (Negative) mg/dL 500 H Quality:SDOH Health Related Social Needs: No Data to Display PFSH All Active Problems (Updated 01/10/24 @ 11:16 by QUYNH Hale) Gastroenteritis (Acute) Fracture of right clavicle (Acute 12/21/23) Cholelithiasis (Acute) Gastritis (Acute) Esophageal reflux (Chronic) Esophagitis (Acute) Left rotator cuff tear (Acute) Duodenal ulcer disease (Acute) Gallstones (Chronic) Esophageal varices (Chronic) Cirrhosis (Chronic) Medical History (Updated 01/10/24 @ 11:16 by QUYNH Hale) Melena Nausea & vomiting Hx of caloric malnutrition Anemia Red blood cell antibody positive with compatible PRBC difficult to obtain Drug abuse Left inguinal hernia Hepatitis C Fully treated Hx of non-insulin dependent diabetes mellitus Hx of pneumothorax History of rib fracture Hx of fracture of clavicle Scoliosis Hepatic encephalopathy Pancytopenia Red blood cell antibody positive with compatible PRBC difficult to obtain History of GI bleed variceal Surgical History (Updated 08/30/23 @ 00:08 by PARAMJIT BARILLAS) S/P TIPS (transjugular intrahepatic portosystemic shunt) Has ultrasound done every 6 months last done 01/09/20 Hx of basal cell carcinoma excision Hx of Achilles tendon repair History of esophagogastroduodenoscopy (EGD) (~01/16/20) multiple Previous back surgery S/P hernia repair S/P shoulder surgery Family History Mother Breast cancer Sister Breast cancer Heart disease Diabetes Sister Breast cancer Hypertension Brother Cancer leukemia Brother Heart disease Diabetes Hypertension Maternal Grandmother Heart disease Father Diabetes Hypertension Social History Smoking/Tobacco Use Status: Never Smoking risk assessment performed?: Yes Alcohol Intake: former Year quit: 2019 Drug use: Current Sobriety Substance use type: does not use and former substance user Details: 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 Housing: house Current gender identity: male Do you feel safe at home: Yes Do you feel safe in your relationship?: Yes
--- NOTE | 2024-01-10 08:15 | DI.CT_ITS ---
Exam(s) CT ABDOMEN PELVIS W EXAM: CT ABDOMEN PELVIS W CLINICAL HISTORY: epigastric pain, intractable vomiting. TECHNIQUE: Imaging Protocol: Axial computed tomography images with coronal and sagittal reformatted images were created and reviewed CONTRAST MATERIAL: Intravenous: Omnipaque 350 Contrast volume:100 ml Oral: yes / no COMPARISON: CT CT ABDOMEN PELVIS W from 08/21/2023 FINDINGS: ABDOMEN and PELVIS: Lung Bases: Lung bases show minimal atelectasis thickening of the wall of the distal esophagus. Liver: Tips. Liver has a cirrhotic appearance. No suspicious mass. Gallbladder and biliary tract: Cholelithiasis. No evidence of wall thickening. No biliary dilation. Pancreas: Normal density. No abnormal calcifications or inflammatory process. No evidence of mass. Metallic artifact noted adjacent to the head of the pancreas Spleen: Normal. Kidneys: Multiple stones noted in the left kidney, largest at the upper pole. Small bilateral cysts again noted. No obstructive uropathy. No suspicious masses seen. Adrenal glands: No masses seen. Vasculature: Abdominal aorta non-dilated. Soft tissues: Small fat containing left inguinal hernia. Bladder: No gross wall thickening. No calculi.No focal mass. Bowel: Stomach contains fluid but is not over distended. Proximal small bowel loops also contain flu id. No findings to suggest obstruction. No bowel wall thickening. Peritoneal cavity: No ascites. No focal collection. No mesenteric inflammatory response. Bones: Hips scoliosis and degenerative changes. Reproductive organs: Bilateral hydroceles. Lymph nodes: No pathologically enlarged lymph nodes. IMPRESSION:: Wall thickening of the distal esophagus could indicate esophagitis. No evidence of per foration. There is fluid in the stomach and proximal small bowel but no findings to suggest obstruct ion. Cholelithiasis without evidence of acute cholecystitis. Left nephrolithiasis. No evidence of hydronephrosis. RADIATION DOSE DELIVERED: 396.95mGy.cm Total DLP DATA REPOSITORY: All CT scans at this facility are submitted to the National Radiology Data Registry (NRDR) Dose Index Registry (DIR) with the [employer] ([employer]). RADIATION OPTIMIZATION: All CT scans at this facility use at least one of these dose optimization te chniques: automated exposure control; mA and/or kV adjustment per patient size (includes targeted exa ms where dose is matched to clinical indication); or iterative reconstruction.
[2024-01-10] MEDS: Ketorolac 15 MG/ML VIAL IVP (08:36)
[2024-01-10] MEDS: Ondansetron 4 MG/2 ML VIAL IVP (08:36)
[2024-01-10] MEDS: ACETAMINOPHEN 1,000 MG/100 ML BTL 400 MG IVPB (08:38)
[2024-01-10] MEDS: Lactated Ringers 1,000 ML 1000 ML IV (08:39)
[2024-01-10 08:40] LABS: Abs Immature Grans 0.03 10^3/uL (0.0-0.06); Absolute Basophil Count 0.02 10^3/uL (0.0-0.2); Absolute Eosinophil Count 0.03 10^3/uL (0.0-0.7); Absolute Lymphocyte Count 0.91 10^3/uL (1.2-3.4); Absolute Monocyte Count 0.65 10^3/uL (0.1-0.8); Absolute Neutrophil Count 8.83 10^3/uL (1.2-6.7); Basophils % 0.2 %; Eosinophils % 0.3 %; HCT 43.1 % (40.0-50.0); HGB 15.6 g/dL (13.5-17.5); Immature Grans % 0.3 %; Lymphocytes % 8.7 %; MCH 32.9 pg (27.0-33.0); MCHC 36.2 % (32.0-36.0); MCV 91 fL (80-95); MPV 8.5 fL (8.0-11.0); Monocytes % 6.2 %; Neutrophils % 84.3 %; Platelet Count 204 10^3/uL (130-400); RBC 4.74 10^6/uL (4.36-5.78); RDW 13.4 % (11.8-14.1); RDW-SD 44.5 fL; WBC 10.47 10^3/uL (4.4-10.8)
[2024-01-10] MEDS: Normal Saline - Diluent 50 ML VIAL IJ (09:04)
[2024-01-10] MEDS: Omnipaque 350 MG/ML 100 ML BTL IJ (09:04)
[2024-01-10 09:07] LABS: ALT 42 U/L (16-63); AST 43 U/L (15-37); Albumin 3.7 g/dL (3.4-5.0); Alkaline Phosphatase 118 U/L (46-116); Anion Gap 13.3 mmol/L (3-11); BUN 19 mg/dL (7-18); Bilirubin, Direct 0.6 mg/dL (0.0-0.2); Bilirubin, Total 2.16 mg/dL (0.2-1.0); CO2 21.7 mmol/L (21.0-32.0); CREATININE 1.2 mg/dL (0.70-1.30); Calcium 9.6 mg/dL (8.5-10.1); Chloride 101 mmol/L (98-107); Estimated GFR 65.06 (mL/min/1.73m2); Glucose 135 mg/dL (74-106); Lipase 58 U/L (16-77); Magnesium 1.8 mg/dL (1.8-2.4); Potassium 3.9 mmol/L (3.5-5.1); Sodium 136 mmol/L (136-145); Total Protein 7.7 g/dL (6.4-8.2); Troponin I 13 ng/L (<or=76)
[2024-01-10 09:08] LABS: Bilirubin Small (Negative); Blood Negative (Negative); Clarity Sl Cloudy (Clear); Glucose 500 mg/dL (Negative); Ketones 40 mg/dL (Negative); Leukocyte Esterase Negative (Negative); Nitrite Negative (Negative); Specific Gravity >= 1.030 (1.005-1.025); Urobilinogen 0.2 mg/dL (Up to 0.2); pH 5.5 (5-8)
[2024-01-10] MEDS: Metoclopramide 10 MG/2 ML VIAL IVP (09:15)
[2024-01-10] MEDS: MORPHine 10 MG/ML VIAL 6 MG IVP (09:15)
[2024-01-10] MEDS: diphenhydrAMINE 50 MG/ML VIAL 25 MG IVP (09:16)
[2024-01-10 09:27] LABS: Bacteria Few HPF (Negative); C & S Indicated? No; Casts 0-2 Hyaline LPF (Negative); Crystals Negative HPF (Negative); Epithelial Cells Rare HPF (Negative); Mucus Trace (Negative); Other Cells Rare Transitional (Negative); RBC 0-2 HPF (0-2)
[2024-01-10 09:57] LABS: Procalcitonin < 0.1 ng/mL
[2024-01-10 10:02] VITALS: BP 177/69; PULSE 78; O2SAT 99
[2024-01-10 10:48] LABS: Lactate 2.3 mmol/L (0.6-1.4)
[2024-01-10 11:30] VITALS: BP 168/58; PULSE 82; RESP 18; TEMP 36.6; O2SAT 98
== END 2024-01-10 11:32 | disposition home or self-care (01) ==
PROVIDERS: Emergency Provider Physician Assistant; PCP Physician Assistant
DX: K52.9 Noninfective gastroenteritis and colitis, unspecified (principal)
CPT/HCPCS: 36415; 80048; 80076; 83690; 84145; 96361; 96374; 96375; 99283; 99285; 74177; 81003; 81015; 83605; 83735; 84484; 85025; 99284; J0131; J1200; J1885; J2270; J2405; J2765; J3490

== ENCOUNTER 2024-01-17 15:29 | Outpatient (REF) | payer OTHER, SELFPAY ==
--- OUTSIDE RECORDS SUMMARY | 2024-01-17 15:31 | XMS_ITS | Clinical Summary ---
Author Organization [facility] [place] [address] Care Team Providers Care Distribution Lineman Name Role Phone George Lou Primary Care Provider [phone] Allergies Active Allergy Reactions Criticality Noted Date [...] 8:15 AM EST Office Visit Dermatology at [place] [address] [place] [phone] Jin Nunez MD [address], [place] [address] Health Maintenance Due Date Last Done Comments CT Colonography 1955 FIT DNA 1955 FIT 1955 Sigmoidoscopy 1955 Pneumoccocal Vaccine: 65+ (1 of 2 - PCV) 1959 Hepatitis C Screening 1971 Tetanus/Diphtheria/Pertussis Vaccines (1 - Tdap) 1972 Zoster vaccine (1 of 2) 2003 Colonoscopy 12/05/2022 12/05/2012, 12/05/2012 Colorectal Cancer Screening 12/05/2022 Sigmoidoscopy (10 year) with FIT yearly 12/05/2022 0 12/05/2012, 12/05/2012 Covid-19 Vaccine (1 - season) 2023 Influenza (Flu) vaccine (1 o f 1 - Influenza standard series) 12/11/2023 Procedures Procedure Name Priority Date/Time Associated Diagnosis Comments COLONOSCOPY Routine 12/05/2012 11:38 AM EDT from Last 3 Months or Most Recently Relevant to Health Maintenance Results * COLONOSCOPY (12/05/2012 11:38 AM EDT) COLONOSCOPY [facility] Endoscopy ___ Patient Name: Alonzo Urbina ? Procedure Date: 12/05/2012 11:38 AM ? Date of : 1955 ? Age: 57 ? Order #: [id number] ? ___ Procedure: ? Colonoscopy Indications: ? Gastrointestinal occult blood loss Providers: ? Ernesto Cardona MD, Ariana Austin, ? , Davi Kapadia RN, Janie Blood ? Marv, [employer] Worker Referring : ? Medicines: ? Midazolam 4 [...] ? throughout the colon, may be ? industrial relations representative of portal hypertension. Recommendation: ?- Although [...] Documents on File Type Date Recorded Patient Acid Cutter Expl kody Advance Directives and Mackenzie mclaughlin Will 06/10/2010 10:34 AM * Full Code (Latest Code Status on File) Date Activated Date Inactivated Comments 12/03/2012 1:42 AM 12/07/2012 2:39 PM Question Answer Comments Order Status: Initial Order Does patient have decision m aking capacity? Yes, Order is based on Patients wishes. Care Teams Distribution Lineman Relationship Specialty Start Date End Date George Lou PA [address] [place], [place] [id number] PCP - General Internal Medicine 11/12/22
--- OUTSIDE RECORDS SUMMARY | 2024-01-17 15:31 | XMS_ITS | Encounter Summary ---
Author [place] [address] Care Team Providers Care Tacker Elastic Band Name Role Phone George Lou Primary Care Provider [phone] Encounter Details Date Type Department Care Team [...] 8:15 AM EST Office Visit Dermatology at [place] [address] [place] [address] Jin Nunez MD [address], [place] [address] documented as of this encounter Visit Diagnoses Not on filedocumented in this encounter Care Teams Tacker Elastic Band Relationship Specialty Start Date End Date George Lou PA [address] [facility] [address] [place] [address] PCP - General Internal Medicine 11/12/22 documented as of this encounter
--- OUTSIDE RECORDS SUMMARY | 2024-01-17 15:32 | XMS_ITS | Encounter Summary ---
[place] [address] Care Team Providers Care [employer] Advisor Name Role Phone Laurie Wiggins MD Primary Care Provider [phone] Encounter Details Date Type Department Care Team (Late st Contact Info) Description 12/27/2012 Orders [place] [address] Paty Pedraza, [facility] [place] [address] Cirrhosis (Primary Dx) Social History Tobacco Use [...] 8:15 AM EST Office Visit Dermatology at [place] [address] [facility] [place] [phone] Jin Nunez MD [address], [place] [address] documented as of this encounter Visit Diagnoses Diagnosis Cirrhosis- Primary Cirrhosis of liver without mention of alcohol documented in this encounter Care Teams [employer] Advisor Relationship Specialty Start Date End Date Laurie Wiggins MD [address] [place] [address] PCP - General 03/03/10 02/12/19 documented as of this encounter
--- OUTSIDE RECORDS SUMMARY | 2024-01-17 15:32 | XMS_ITS | Encounter Summary ---
[place] [address] Care Team Providers Care Tie Maker Name Role Phone George Lou Primary Care Provider [phone] Reason for Visit * Reason Comments Follow-up Encounter Details Date Type Department Care Team (Late st Contact Info) Description 05/20/2023 8:15 AM EST Office Visit Dermatology at [address] [place] [address] iJn Nunez MD [address] [facility], [place] [address] History of basal cell carcinoma; Nevus Social [...] surgery 2016 [facility] 3. History of growing up in [place] and many years spent in [place] 4. 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 Alonzo follows up for repeat skin checkup. [...] 8:15 AM EST Office Visit Dermatology at [place] [address] [facility] [place] [address] Jin Nunez MD [address], [place] [address] documented as of this encounter Visit Diagnoses Diagnosis History of basal cell carcinoma Personal history of other malignant neoplasm of skin Nevus Benign neoplasm of skin, site unspecified documented in this encounter Care Teams Tie Maker Relationship Specialty Start Date End Date George Lou PA [address] [place] [address] PCP - General Internal Medicine 11/12/22 documented as of this encounter
--- OUTSIDE RECORDS SUMMARY | 2024-01-17 15:32 | XMS_ITS | Encounter Summary ---
[place] [address] Care Team Providers Care Table Inspector Name Role Phone Katia Blanco APRN Primary Care Provider [phone] Encounter Details Date Type Department Care Team [...] 8:15 AM EST Office Visit Dermatology at [address] [place] [address] Jin Nunez MD [address], [place] [address] documented as of this encounter Visit Diagnoses Not on filedocumented in this encounter Care Teams Table Inspector Relationship Specialty Start Date End Date Katia Blanco APRN [address] [place] [address] PCP - General Family Medicine 02/13/19 11/11/22 documented as of this encounter
--- OUTSIDE RECORDS SUMMARY | 2024-01-17 15:32 | XMS_ITS | Encounter Summary ---
[place] [address] Care Team Providers Care Boiler Setter Name Role Phone George Lou Primary Care Provider [phone] Encounter Details Date Type Department Care Team [...] 8:15 AM EST Office Visit Dermatology at [place] [address] [facility] [place] [address] Jin Nunez MD [address] [facility] [address], [place] [address] documented as of this encounter Visit Diagnoses Not on filedocumented in this encounter Care Teams Boiler Setter Relationship Specialty Start Date End Date George Lou PA Cher[address] [facility] [address] [place] [address] PCP - General Internal Medicine 11/12/22 documented as of this encounter
--- OUTSIDE RECORDS SUMMARY | 2024-01-17 15:32 | XMS_ITS | Encounter Summary ---
Author Organization [facility] [place] [address] Care Team Providers Care Grinder Setup Operator Name Role Phone George Lou Primary Care Provider [phone] Encounter Details Date Type Department Care Team (Late st Contact Info) Description 11/12/2022 Refill Dermatology at [address] [phone] Francia Pichardo RN Social History Tobacco Use [...] 8:15 AM EST Office Visit Dermatology at [address] [phone] Jin Nunez MD [address], [place] [address] documented as of this encounter Visit Diagnoses Not on filedocumented in this encounter Care Teams Grinder Setup Operator Relationship Specialty Start Date End Date George Lou PA [address] [place], [place] [id number] PCP - General Internal Medicine 11/12/22 documented as of this encounter
--- OUTSIDE RECORDS SUMMARY | 2024-01-17 15:32 | XMS_ITS | Encounter Summary ---
Author Organization [facility] [place] [address] Care Team Providers Care Expansion Envelope Maker Hand Name Role Phone Katia Blanco APRN Primary Care Provider [phone] Reason for Visit * Reason Comments Skin Check * Consultation (Routine) - Specialty Diagnoses / Procedures Referred By Contreinaldo t Referred To Contact Dermatology Diagnoses Other hypertrophic disorders of the skin Personal history of other malignant neoplasm of skin Skin tags/Hx of BCC Procedures Consult Katia Blanco APRN [address] [place] [address] Jin Nunez MD [address] [place] [address], [facility] [place] [address] Referral ID Status Reason Start Date Expiration Date V isits Requested Visits Authorized [id number] Consult, Test & Treat PCP Updated and/or Approved 05/01/2019 07/31/2019 6 6 Encounter Details Date Type Department Care Team (Late st Contact Info) Description 12/18/2019 11:15 AM EDT Office Visit Dermatology at [address] [phone] Jin Nunez MD [address] [place] [address], [facility] DER[facility] [place], [place] [id number] History of basal cell carcinoma; Nevus; Acrochordon [...] of BCCA status post Mohs surgery 2015 [facility] 3. History of growing up in [place] and many years spent in [place] Alonzo is a 64-year-old gentleman who would like to establish himself in my practice. He has a history of skin cancer as noted above. He was last checked by a combination welder 2 years ago. [id number] and does spend a lot of time [...] AM EST Office Visit Dermatology at [place] [address] [facility] [place] [address] Jin Nunez MD [address], [place] [address] documented as of this encounter Visit Diagnoses Diagnosis History of basal cell carcinoma Personal history of other malignant neoplasm of skin Nevus Benign neoplasm of skin, site unspecified Acrochordon Unspecified hypertrophic and atrophic condition of skin documented in this encounter Care Teams Expansion Envelope Maker Hand Relationship Specialty Start Date End Date Katia Blanco APRN [address] [place] [address] PCP - General Family Medicine 02/13/19 11/11/22 documented as of this encounter
--- OUTSIDE RECORDS SUMMARY | 2024-01-17 15:32 | XMS_ITS | Encounter Summary ---
[place] [address] Care Team Providers Care Senior Functional Analyst Name Role Phone KayodeKatia arroyo SAMANTHA Primary Care Provider [phone] Reason for Visit * Reason Comments Follow-up Encounter Details Date Type Department Care Team (Late st Contact Info) Description 05/28/2022 8:30 AM EST Office Visit Dermatology at [address] [place] [address] Jin Nunez MD [address] [facility], [place] [address] History of basal cell carcinoma; Nevus Social [...] post 4 stages of Mohs surgery 2016 [facility] 3. ??History of growing up in [place] and many years spent in [place] 4. 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 Physical examination reveals a pleasant 66 almost [...] 8:15 AM EST Office Visit Dermatology at [place] [address] [place] [address] Jin Nunez MD [address] [facility], [place] [address] documented as of this encounter Visit Diagnoses Diagnosis History of basal cell carcinoma Personal history of other malignant neoplasm of skin Nevus Benign neoplasm of skin, site unspecified documented in this encounter Care Teams Senior Functional Analyst Relationship Specialty Start Date End Date Katia Blanco APRN [address] [place] [address] PCP - General Family Medicine 02/13/19 11/11/22 documented as of this encounter
--- OUTSIDE RECORDS SUMMARY | 2024-01-17 15:32 | XMS_ITS | Encounter Summary ---
[place] [address] Care Team Providers Care Lead Maintenance Technician Name Role Phone Gina Manzo MD Primary Care Provider [phone] Encounter Details Date Type Department Care Team (Latest Contact Info) Description 12/02/2012 11:46 PM EDT - 12/07/2012 12:38 PM EDT Hospital Encounter 3 [place] [address] Sharon Gill MD [facility] [place] [address] [place] [address] [place] [address] GI bleeding (Primary Dx) Discharge Disposition: Home [...] follow-up with your primary care physician and dragline engineer. You will need a blood test the [...] scheduled with Dr. GINA MANZO MD at [address] [place] [address] on , December 14 at 10:45 am. Future Appointments Date Time Provider Department Center 12/28/2012 8:45 AM 2, Ultrasound Rm US None 12/28/2012 11:30 AM Paty Pedraza, ENVIRONMENTAL MONITORING TECHNICIAN [facility] Your Discharge Medication List Unchanged DRIVING TEACHER meds that are or will be resumed Medication Status Sig Dispense Refill ??? multivitamin (THERAGRAN) tablet Active Take 1 tablet by mouth daily. Changed DRIVING TEACHER meds Medication Status Sig Dispense Refill ??? [...] as needed for Sleep. 20 tablet 0 DRIVING TEACHER meds that are DCed or will be [...] mouth daily. Your Inpatient Medical Team at [facility] Name(s) of your inpatient provider(s): Drs. Andres Thompson, Cory Tellez, Ernesto Cardona, Gustabo Garza For questions regarding issues relating to your hospitalization on the Hospital Medicine Service, please contact your inpatient physician through the [facility] Enrollment Clerk [phone]. Issues after hours and on weekends will be handled by the Hospitalist staff on-call. Your Primary Care Provider GINA MANZO MD [phone] documented in this encounter Medications at Time [...] spent >30 minutes (Day of Discharge Code 07450) involved in the final examination of the [...] history. 24 Hour Events/Subjective: H+H, vitals stable [place] negative For capsule endoscopy today to eval [...] friable mucosa throughout the colon, may be resources representative of por kee hypertension. 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 I updated her today at bedside and spent >40 minutes with them today. -Disposition - pending medical improvement * Julienne Carlisle RN - 12/05/2012 5:16 PM EDT Initial Assessment/CRC Note Office of Care Management Alonzo Urbina 1955 [address] [facility] [address] Late Entry eDH reviewed. Report received from Dr. Tellez. Patient reviewed in multidisciplinary discharge rounds. S: This place is falling apart in my opinion. O: Introduced self and CRC role to patient and carlos Bowers; patient agrees to CRC services; pt currently lives with Elissa in own home in [place], [place]. CRC contact information left on patient [...] insured via Medicare A,B and D via [place] and [place] [employer]. Transportation: Carlos will transport pt home. Anticipated Services at Discharge: will require re-assessment closer to time of d/c. Social Support Patient has given [facility] permission for carlos Parker ( cell [phone])to be contacted. A: medical plan still evolving. P: This public relations writer or colleague from the Office of Care Management will continue to follow patient to assist w/ changing needs and collaborate w/ pt, medical team and family to formulate a plan for discharge; CRC may be reached on beeper [phone] or by leaving a voice mail message at [phone]. [phone]. See Care Management note in eDH for detailed VNA/DME information upon discharge. Medical Team: Hospitalist Service, pager [phone]. Julienne Carlisle, RN, MSN, [facility] Clinical Research Food Technologist Office of Care Management Pager [phone] Phone: [phone] * Socorro Lomeli RN - 12/05/2012 3:09 [...] oozing or bleeding. - Normal examined duodenum. [place] 12/05: poor prep with no evidence of [...] to slow oozing from his portal gastropathy. [place] was poor prep with evidence of active [...] them as documented. 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 I updated her today at his request. -Disposition - pending medical improvement * Juliette Barreto, MELY - 12/04/2012 1:18 AM EDT Pt had a moderate loose BM at 0100. Black with streaks of adrianna red blood. * Cleopatra Camara, MELY - 12/03/2012 5:54 PM EDT Pt transferred to [address] from ICU accompanied by transportation staff. [...] TYPE MANUAL Component Value Range Specimen OD [id number] ABORh Type A Pos SELECTED CELL SCREEN [...] 01/11 -Code status - Full; Elissa ruth ([phone]) is medical decision maker. I updated her [...] behavior ID: 57 y.o. Male presents to [facility] with GI bleed. History of Present Illness: HPI Patient is a 57 Y M with history of Hepatitis C, cirrhosis Portal HTN who was transferred from [facility] for evaluation of GI bleed. Patient [...] + Extremities: No edema, peripheral pulses + CO FOUNDER & CEO: Awake, alert, oriented. No focal deficits. Laboratory [...] 12/08/2012 3:03 PM EDTAssociated Order(s): SCAN DOC: PRECISION AGRICULTURE SPECIALIST * Provider, Scanning - 12/08/2012 2:46 PM EDTAssociated Order(s): SCAN DOC: LAB documented in this encounter ED Notes * Lon Browne RN - 12/03/2012 12:57 AM EDT PT to room pt accompinied by RN for transport * Lon Browne RN - 12/03/2012 12:28 AM EDT Pt awaiting admission room assignment GI Md in with pt pt alert oriented resp regular unlabored IV's infusing without difficulty * Lon Browne RN - 12/02/2012 11:12 PM EDT [...] a 57 y.o. male who presents to [facility] with GI bleeding History of Present Illness [...] cirrhosis Portal HTN who was transferred from [facility] for evaluation of GI bleed. Patient [...] friable mucosa throughout the colon, may be resources representative of por kee hypertension. Recommendation: - [...] cirrhosis c/h/o variceal sequential banding to eradication [id number], hx of UGIB without obvious clear source [...] follow-up with your primary care physician and dragline engineer. You will need a blood test the [...] scheduled with Dr. GINA MANZO MD at [address] [place] [address] on December 14 at 10:45 am. Future Appointments Date Time Provider Department Center 12/28/2012 8:45 AM 2, Ultrasound Rm [facility] None 12/28/2012 11:30 AM Paty Pedraza APRN [facility] Your Discharge Medication List Unchanged DRIVING TEACHER meds that are or will be resumed Medication Status Sig Dispense Refill ??? multivitamin (THERAGRAN) tablet Active Take 1 tablet by mouth daily. Changed DRIVING TEACHER meds Medication Status Sig Dispense Refill ??? [...] as needed for Sleep. 20 tablet 0 DRIVING TEACHER meds that are DCed or will be [...] mouth daily. Your Inpatient Medical Team at [facility] Name(s) of your inpatient provider(s): Drs. Andres Thompson, Cory Tellez, Ernesto Cardona, Gustabo Garza For questions regarding issues relating to your hospitalization on the Hospital Medicine Service, please contact your inpatient physician through the [facility] Enrollment Clerk [phone]. Issues after hours and on weekends will be handled by the Hospitalist staff on-call. Your Primary Care Provider GINA MANZO MD [phone] General Instructions None Future Appointments and Orders Future Appointments: Provider: Department: Dept Phone: Center: 12/28/2012 8:45 AM Ultrasound 2 [facility] RAD ULTRASOUND [phone] None 12/28/2012 11:30 AM Paty Pedraza APRN Gastroenterology [phone] [facility] Discharge References/Attachments: Discharge References/Attachments None Inpatient Provider Contact Information: For questions regarding this document or issues relating to this hospitalization on the Medical Service, please contact your inpatient physician through the [facility] Enrollment Clerk . Issues afterhours and on weekends will [...] Cardona MD - 12/05/2012 5:03 PM EDT [facility] Operative Note Patient Name: Alonzo Urbina : [id number] MR#: [id number] Case Date: 12/05/2012 Surgeon: Surgeon(s) and Role: [...] 0 minutes ESTELA BARBA, PT 12/05/2012 Pager: [phone] Physical Therapy Rehabilitation Department * Plan of [...] MD - 12/02/2012 11:59 PM EDT . [facility] Section of Gastroenterology and Hepatology Initial Inpatient Consultation Patient Name: Alonzo Urbina : 1955 Referring provider: Dr. Granados, medicine Date of Consult: 12/02/12 Reason for Consult: UGIB History of Present Illness: Alonzo Urbina is a 57 y.o. , [facility] s/o ETOH abuse (sober 12/21), [...] day denies daily use. Had colonoscopy at [facility] reportedly WNL. Last EGD09/21 [...] abuse (sober 12/21), HCV (PEG IF/ribavirin stopped 2ncephalitis), cirrhosis with hx of variceal sequential banding [...] 11:37 PM EDT * ED Triage - Lon Browne RN - 12/02/2012 10:20 PM EDT Pt arrived via [facility] from [facility] For evaluation of GI bleeding pt is alert oriented resp regular unlabored pt is dizzy when standing skin is cool and pale documented in this encounter Plan of Treatment Upcoming Encounters Date Type Department Care Team (Late st Contact Info) Description 2024 8:15 AM EST Office Visit Dermatology at [address] [place] [address] Jin Nunez MD [address], [place] [address] documented as of this encounter Procedures Procedure Name Priority Date/Time Associated Diagnosis Comments PRECISION AGRICULTURE SPECIALIST SCAN 12/08/2012 3:03 PM EDT LAB SCAN [...] in this encounter Results * SCAN DOC: PRECISION AGRICULTURE SPECIALIST (12/08/2012 3:03 PM EDT) Anatomical Region Laterality [...] Deviation 45.2 35.0 - 46.0 fL CERNER CORINEENNIUM RDW coefficient of variation 15.1(H) 10.9 - 14.4 % CERNER CORINEENNIUM Mean Platelet Volume 8.4(L) 9.0 - 12.0 fL THEO POOLENNIUM Blood specimen (specimen) 12/07/2012 9:02 AM EDT 12/07/2012 9:07 AM EDT Narrative Resulting Agency Comment Spec In Lab Cory Tellez MD HEMATOLOGY ORDERABLE S [facility] * VIDEO CAPSULE ENDOSCOPY (12/06/2012 8:00 AM EDT) VIDEO CAPSULE ENDOSCOPY [facility] Endoscopy ___ Patient Name: Alonzo Urbina ? Procedure Date: 12/06/2012 8:00 AM ? N: [id number] ? Date of : 1955 ? Age: 57 ? Order #: [id number] ? ___ Procedure: ? Video capsule endoscopy [...] 6:12 AM EDT 12/06/2012 6:50 AM EDT Paarm Granados MD HEMATOLOGY ORDERAB LES CERNER CORINEENNIUM [...] intervals supplied above were not validated at [facility]. Results from pediatric patients should be interpreted [...] MD CHEMISTRY ORDERABL ES Performing Organization Address [facility] Co de Phone Number CERNER [...] Hematocrit 27.3(L) 40.0 - 51.0 % THEO ARCOS Blood specimen (specimen) 12/05/2012 6:51 PM EDT 12/05/2012 6:55 PM EDT Narrative Resulting Agency Comment Spec In Lab Cory Tellez MD HEMATOLOGY ORDERABLE S THEO POOLENNIUM * COLONOSCOPY (12/05/2012 11:38 AM EDT) COLONOSCOPY [facility] Endoscopy ___ Patient Name: Alonzo Urbina ? Procedure Date: 12/05/2012 11:38 AM ? N: [id number] ? Date of : 1955 ? Age: 57 ? Order #: [id number] ? ___ Procedure: ? Colonoscopy Indications: ? Gastrointestinal occult blood loss Providers: ? Ernesto Cardona MD, Ariana Austin, ? , Davi Kapadia, RN, Janie Blood ? Marv, Rn Care Manager Referring : ? Medicines: ? Midazolam 4 [...] ? throughout the colon, may be ? resources representative of portal hypertension. Recommendation: ?- Although possible that small ? lesions were missed (e.g., AVMs), ? would proceed with capsule endoscopy ? as next step to evaluate for ? significant lesions. ? Attending Participation: ? I personally performed the entire procedure. ? Ernesto Carodna MD 12/05/2012 5:23 PM Number of Addenda: [...] Metabolic Panel (non-fasting) (12/05/2012 5:39 AM EDT) [facility] Glucose 135 60 - 199 mg/dL CERNER MILLENNIUM Comment:Diabetes: >=200 mg/d L plus symptoms Blood Urea Nitrogen 14 10 - 20 mg/dL CERNER MILLENNIUM Creatinine 0.92 0.80 - 1.50 mg/dL CERNER MILLENNIUM Comment: Please note that the pediatric reference intervals supplied above were not validated at [facility]. Results from pediatric patients should be interpreted [...] MD CHEMISTRY ORDERABL ES Performing Organization Address [facility]/ZIP Co de Phone Number CERNER MILLENNIUM * [...] MD HEMATOLOGY ORDERABLE S Performing Organization Address [facility]/ZIP Co de Phone Number THEO POOLENNIUM * APTT (12/04/2012 3:13 PM EDT) Partial Thromboplastin Time 31 25 - 35 sec [facility] MILLENNIUM Comment: Recommended therapeutic PTT range for full dose unfractionated heparin is 80-114 seconds. Blood specimen (specimen) 12/04/2012 3:13 PM EDT 12/04/2012 3:26 PM EDT Narrative Resulting Agency Comment Spec In Lab Cory Tellez MD HEMATOLOGY ORDERABLE S Performing Organization Address [facility] de Phone Number THEO POOLENNIUM * (ABNORMAL) Hemoglobin and Hematocrit, blood (12/04/2012 3:13 PM EDT) Hemoglobin 8.4(L) 13.7 - 17.5 gm/dL [facility] MILLENNIUM Hematocrit 25.8(L) 40.0 - 51.0 % [facility] MILLENNIUM Blood specimen (specimen) 12/04/2012 3:13 PM EDT 12/04/2012 3:25 PM EDT Narrative Resulting Agency Comment Spec In Lab Cory Tellez MD HEMATOLOGY ORDERABLE S Performing Organization Address [facility] Co de Phone Number [facility] POOLENNIUM * (ABNORMAL) Basic Metabolic Panel (non-fasting) (12/04/2012 3:13 PM EDT) Glucose 118 60 - 199 mg/dL [facility] MILLENNIUM Comment:Diabetes: >=200 mg/d L plus symptoms Blood Urea Nitrogen 20 10 - 20 mg/dL CERNER MILLENNIUM Creatinine 0.94 0.80 - 1.50 mg/dL CERNER MILLENNIUM Comment: Please note that the pediatric reference intervals supplied above were not validated at [facility]. Results from pediatric patients should be interpreted in conjunction to the patient's age, height and muscle mass. Sodium 142 135 - 145 mmol/L [facility] Potassium 3.0(Criti agustin) 3.5 - 5.0 [...] Tellez MD CHEMISTRY ORDERABLES Performing Organization Address [facility] Co de Phone Number THEO FONTANAIUM * (ABNORMAL) Prothrombin Time (12/04/2012 3:13 PM EDT) Prothrombin Time 16.2(H) 12.0 - 15.0 sec CERNER MILLENNIUM Comment: [facility] Transfusion Committee Guidelines: INR less [...] MD HEMATOLOGY ORDERABLE S Performing Organization Address City/[facility] Co de Phone Number THEO ARCOS * (ABNORMAL) Hemoglobin and Hematocrit, blood (12/04/2012 9:13 AM EDT) Hemoglobin 7.7(L) 13.7 - 17.5 gm/dL CERNER MILLENNIUM Hematocrit 23.9(L) 40.0 - 51.0 % CERNER MILLENNIUM Blood specimen (specimen) 12/04/2012 9:13 AM EDT 12/04/2012 9:19 AM EDT Narrative Resulting Agency Comment Spec In Lab Cory Tellez MD HEMATOLOGY ORDERABLE S Performing Organization Address [facility]/ZIP Co de Phone Number [facility] * (ABNORMAL) Hemoglobin and Hematocrit, blood (12/04/2012 6:32 AM EDT) Hemoglobin 8.0(L) 13.7 - 17.5 gm/dL CERNER MILLENNIUM Hematocrit 23.8(L) 40.0 - 51.0 % CERNER MILLENNIUM Blood specimen (specimen) 12/04/2012 6:32 AM EDT 12/04/2012 6:58 AM EDT Narrative Resulting Agency Comment Spec In Lab Cory Tellez MD HEMATOLOGY ORDERABLE S Performing Organization Address [facility] Co de Phone Number [facility] CORINEENNIUM * Ammonia (12/04/2012 6:32 AM EDT) Ammonia 30 16 - 60 mcmol/L CERNER MILLENNIUM Blood specimen (specimen) 12/04/2012 6:32 AM EDT 12/04/2012 6:57 AM EDT Narrative Resulting Agency Comment Spec In Lab Cory Tellez MD CHEMISTRY ORDERABLES Performing Organization Address [facility] de Phone Number [facility] CORINEENNIUM * (ABNORMAL) Hemoglobin and Hematocrit, blood (12/03/2012 11:08 PM EDT) Hemoglobin 8.2(L) 13.7 - 17.5 gm/dL CERNER MILLENNIUM Hematocrit 24.5(L) 40.0 - 51.0 % CERNER MILLENNIUM Blood specimen (specimen) 12/03/2012 11:08 PM EDT 12/03/2012 11:13 PM EDT Narrative Resulting Agency Comment Spec In Lab Cory Tellez MD HEMATOLOGY ORDERABLE S Performing Organization Address City/[facility] Co de Phone Number [facility] * (ABNORMAL) Hemoglobin and Hematocrit, blood (12/03/2012 4:50 PM EDT) Pathologist [facility] Hemoglobin 8.2(L) 13.7 - 17.5 gm/dL [facility] Hematocrit 25.1(L) 40.0 - 51.0 % [facility] Blood specimen (specimen) 12/03/2012 4:50 PM EDT 12/03/2012 4:50 PM EDT Narrative Resulting Agency Comment Spec In Lab Cory Tellez MD HEMATOLOGY ORDERABLE S Performing Organization Address [facility] de Phone Number [facility] * Transfuse RBC (12/03/2012 12:06 PM EDT) Cory Tellez MD NURSING TREATMENT OR DERABLES - BLOOD ADMIN * Prepare RBC (12/03/2012 9:40 AM EDT) Pathologist [facility] Dispensed? Yes [facility] Blood specimen (specimen) 12/03/2012 9:40 AM EDT 12/03/2012 9:36 AM EDT Cory Tellez MD BLOOD BANK PRODUCT O RDERABLES Performing Organization Address [facility] de Phone Number [facility] * POCT Glucose (12/03/2012 6:35 AM EDT) Pathologist [facility] Glucose, POC 129 60 - 199 mg/dL [facility] Comment: Supplemental ranges: <110 mg/dL before meals <200 mg/dL all other times of the day Blood specimen (specimen) 12/03/2012 6:35 AM EDT 12/03/2012 6:35 AM EDT Param Granados MD POINT OF CARE TEST ORDERABLES Performing Organization Address [facility] Phone Number [facility] * Differential, Automated (12/03/2012 6:33 AM EDT) [facility] Neutrophil % 56.9 34.0 - 71.0 % [facility] Neutrophil Absolute 2.67 1.50 - 6.30 x10(3)/mcL [...] EDT Param Granados MD HEMATOLOGY ORDERAB LES [facility] * (ABNORMAL) Basic Metabolic Panel (non-fasting) (12/03/2012 6:33 AM EDT) [facility] Glucose 128 60 - 199 mg/dL CERNER MILLENNIUM Comment:Diabetes: >=200 mg/d L plus symptoms Blood Urea Nitrogen 42(H) 10 - 20 mg/dL CERNER MILLENNIUM Creatinine 0.86 0.80 - 1.50 mg/dL CERNER MILLENNIUM Comment: Please note that the pediatric reference intervals supplied above were not validated at [facility]. Results from pediatric patients should be interpreted [...] Cell Volume 85.6 79.0 - 92.0 fL [facility] CORINEENNIUM Mean Cell Hemoglobin 27.6 25.6 - 32.2 pg [facility] CORINEENNIUM Mean Cell Hemoglobin Concentration 32.2 32.0 - 36.5 gm/dL [facility] CORINEENNIUM Platelet 110(L) 145 - 370 x10(3)/mc L [facility] CORINEENNIUM RDW Standard Deviation 42.2 35.0 - 46.0 fL [facility] CORINEENNIUM RDW coefficient of variation 13.6 10.9 - 14.4 % [facility] CORINEENNIUM Mean Platelet Volume 9.4 9.0 - 12.0 fL [facility] Blood specimen (specimen) 12/03/2012 6:33 AM EDT 12/03/2012 6:36 AM EDT Narrative Resulting Agency Comment Spec In Lab Param Granados MD HEMATOLOGY ORDERAB LES Performing Organization Address City/[facility] Co de Phone Number THEO ARCOS * Transfuse RBC (12/03/2012 5:33 AM EDT) Sharon Gill MD NURSING TREATMENT O RDERABLES - BLOOD ADMIN * Transfuse RBC (12/03/2012 5:33 AM EDT) Sharon Gill MD NURSING TREATMENT O RDERABLES - BLOOD ADMIN * POCT Glucose (12/03/2012 1:26 AM EDT) Glucose, POC 105 60 - 199 mg/dL [facility] Comment: Supplemental ranges: <110 mg/dL before meals <200 mg/dL all other times of the day Blood specimen (specimen) 12/03/2012 1:26 AM EDT 12/03/2012 1:26 AM EDT Param Granados MD POINT OF CARE TEST ORDERABLES Performing Organization Address [facility] Co de Phone Number [facility] * Prepare RBC (12/02/2012 11:00 PM EDT) Dispensed? Yes [facility] Blood specimen (specimen) 12/02/2012 11:00 PM EDT 12/02/2012 10:59 PM EDT Sharon Gill MD BLOOD BANK PRODUCT ORDERABLES Performing Organization Address [facility] de Phone Number THEO ARCOS * Selected [...] BANK LAB ORDE JARETH Performing Organization Address [facility] de Phone Number THEO FONTANAIUM * ABORh Type Manual (12/02/2012 10:30 PM EDT) Expires at 2359 on: [id number] THEO FONTANAIUM ABORH Type A Pos THEO FONTANAIUM Blood specimen (specimen) 12/02/2012 10:30 PM EDT 12/02/2012 10:35 PM EDT Narrative Resulting Agency Comment Spec In Lab Sharon Gill MD BLOOD BANK LAB ORDE JARETH Performing Organization Address [facility] de Phone Number THEO FONTANAIUM * Differential, Automated (12/02/2012 10:30 PM EDT) Neutrophil % 61.7 34.0 - 71.0 % CERNER MILLENNIUM Neutrophil Absolute 3.64 1.50 - 6.30 x10(3)/mcL CERNER MILLENNIUM Lymph % 25.0 19.0 - 53.0 % CERNER MILLENNIUM Lymphocytes Abs 1.5 1.0 - 3.6 x10(3)/mcL CERNER MILLENNIUM Monocyte % 11.5 4.0 - 13.0 % CERNER MILLENNIUM Monocyte Abs 0.7 0.2 - 1.0 x10(3)/[facility] CERNER MILLENNIUM Eos % 1.0 0.0 - 7.0 % CERNER MILLENNIUM Eosinophils Abs 0.1 0.0 - 0.5 x10(3)/mcL CERNER MILLENNIUM Basophil % 0.5 0.0 - 2.0 % CERNER MILLENNIUM Baso Absolute 0.0 0.0 - 0.2 x10(3)/[facility] CERNER MILLENNIUM Immature Gran % 0.30 0.00 - 0.66 % CERNER CORINEENNIUM Comment: Immature granulocytes(IG's)percentage and absolute count will include metamyelocytes, myelocytes, and promyelocytes. Blood smears from CBCs yielding IG's will be scanned manually for concordance. If this scan disagrees with the automated IG or if promyelocytes are noted, a manual differential will be performed. Immature Gran Absolute 0.02 0.00 - 0.05 x10(3)/[facility] THEO FONTANAIUM Blood specimen (specimen) 12/02/2012 10:30 PM EDT 12/02/2012 10:33 PM EDT Sharon Gill MD HEMATOLOGY ORDERABL ES Performing Organization Address [facility] Co de Phone Number THEO FONTANAIUM * Gold Tube HOLD (12/02/2012 10:30 PM EDT) Pathologist [facility] Gold Hold Sample in lab. THEO ARCOS Blood specimen (specimen) 12/02/2012 10:30 PM EDT 12/02/2012 10:33 PM EDT Sharon Gill MD CHEMISTRY ORDERABLE S Performing Organization Address City/[facility]/ZIP Co de Phone Number THEO FONTANAIUM * (ABNORMAL) APTT (12/02/2012 10:30 PM EDT) Partial Thromboplastin Time 36(H) 25 - 35 sec THEO POOLENNIUM Comment: Recommended therapeutic PTT range for full dose unfractionated heparin is 80-114 seconds. Blood specimen (specimen) 12/02/2012 10:30 PM EDT 12/02/2012 10:33 PM EDT Narrative Resulting Agency Comment Spec In Lab Sharon Gill MD HEMATOLOGY ORDERABL ES Performing Organization Address [facility] de Phone Number THEO POOLENNIUM * (ABNORMAL) Prothrombin Time (12/02/2012 10:30 PM EDT) Prothrombin Time 16.8(H) 12.0 - 15.0 sec CERNER MILLENNIUM Comment: [facility] Transfusion Committee Guidelines: INR less [...] MD HEMATOLOGY ORDERABL ES Performing Organization Address [facility] de Phone Number THEO OPOLENNIUM * (ABNORMAL) Hepatic Function Panel (12/02/2012 10:30 [...] MD CHEMISTRY ORDERABLE S Performing Organization Address [facility]/ZIP Co de Phone Number [facility] * Glucose, random (12/02/2012 10:30 PM EDT) Glucose 121 60 - 199 mg/dL [facility] Comment:Diabetes: >=200 mg/d L plus symptoms Blood specimen (specimen) 12/02/2012 10:30 PM EDT 12/02/2012 10:33 PM EDT Narrative Resulting Agency Comment Spec In Lab Sharon Gill MD CHEMISTRY ORDERABLE S Performing Organization Address [facility] de Phone Number [facility] * (ABNORMAL) Creatinine (12/02/2012 10:30 PM EDT) Creatinine 0.76(L) 0.80 - 1.50 mg/dL [facility] Comment: Please note that the pediatric reference intervals supplied above were not validated at [facility]. Results from pediatric patients should be interpreted in conjunction to the patient's age, height and muscle mass. Est Glomerular Filtration Rate >60 >=60 [facility] Comment: This estimated GFR (eGFR) value was [...] MD CHEMISTRY ORDERABLE S Performing Organization Address [facility] Co de Phone Number [facility] * (ABNORMAL) BUN (12/02/2012 10:30 PM EDT) Blood Urea Nitrogen 41(H) 10 - 20 mg/dL CERNER MILLENNIUM Blood specimen (specimen) 12/02/2012 10:30 PM EDT 12/02/2012 10:33 PM EDT Narrative Resulting Agency Comment Spec In Lab Sharon Gill MD CHEMISTRY ORDERABLE S CERNER MILLENNIUM * (ABNORMAL) Electrolytes panel (12/02/2012 10:30 PM EDT) Pathologist [facility] Sodium 140 135 - 145 mmol/L CERNER [...] MD CHEMISTRY ORDERABLE S Performing Organization Address [facility]/State/ZIP Co de Phone Number CERNER MILLENNIUM * (ABNORMAL) CBC (with Diff) (12/02/2012 10:30 PM EDT) Pathologist [facility] White Blood Cell 5.9 4.0 - 10.0 [...] 12/02/12 at 2319, Until 12/02/12 at 2330, LON LILLINGTON: cabinet override ondansetron (ZOFRAN) injection 4 mg [...] at 100 mL/hr, Intravenous, CONTINUOUS, Starting on Se[place]our 12/03/12 at 0200, Until Tue12/03/12 at 0937 Rate/Dose Verify 12/03/2012 8:00 AM EDT 1,000 mLs 100 mL/hr [facility] 12/03/2012 2:00 AM EDT 1,000 mLs 100 mL/hr sodium chloride 0.9% infusion 100 mL/hr, Intravenous, CONTINUOUS, Starting on Tue12/03/12 at 1000, Until Tue12/03/12 at 1359 [facility] 12/03/2012 2:00 PM EDT 100 mL/hr 100 [...] Tue12/04/12 at 1045, Until Tue12/04/12 at 1856 [facility] 12/04/2012 1:18 PM EDT 125 mL/hr 125 [...] Discontinued 0200 (Given - Provider: Juliette Barreto, MELY)1400 (Given - Provider: Socorro Lomeli RN) 0231 [...] ineffective documented in this encounter Care Teams Lead Maintenance Technician Relationship Specialty Start Date End Date Gina Manzo MD [address] [place] [address] PCP - General 03/03/10 02/12/19 documented as of this encounter
--- OUTSIDE RECORDS SUMMARY | 2024-01-17 15:32 | XMS_ITS | Encounter Summary ---
[place] [address] Care Team Providers Care Tank Calibrator Name Role Phone Katia Blanco APRN Primary Care Provider [phone] Encounter Details Date Type Department Care Team (Late Contact Info) Description 11/27/2021 Telephone Dermatology at [address] [address] Francia Pichardo RN Social History [...] 8:15 AM EST Office Visit Dermatology at [place] [address] [place] [address] Jin Nunez MD [address], [place] [address] documented as of this encounter Visit Diagnoses Not on filedocumented in this encounter Care Teams Tank Calibrator Relationship Specialty Start Date End Date Katia Blanco, [employer] RN [address] [place] [address] PCP - General Family Medicine 02/13/19 11/11/22 documented as of this encounter
--- OUTSIDE RECORDS SUMMARY | 2024-01-17 15:32 | XMS_ITS | Encounter Summary ---
[place] [address] Care Team Providers Care Precast Worker Name Role Phone KayodeKatia arroyo SAMANTHA Primary Care Provider [phone] Reason for Visit * Reason Comments Skin Lesion Encounter Details Date Type Department Care Team (Late st Contact Info) Description 11/20/2021 9:00 AM EDT Office Visit Dermatology at [place] [address] [place] [address] Jin Nunez MD [address] [place] [address] History of basal cell carcinoma; Nevus Social [...] post 4 stages of Mohs surgery 2016 [facility] 3. History of growing up in [place] and many years spent in [place] Alonzo follows up after last seeing me in December 2019. About 7 months ago he noted the development of a dark spot on his supra glabellar forehead. He reminds me that he grew up in [place] then spent a number of years living in [place] near [place]. He is status post Mohs surgery as [...] 8:15 AM EST Office Visit Dermatology at [place] [address] [place] [phone] Jin Nunez MD [address] [place] [address] documented as of this encounter Visit Diagnoses Diagnosis History of basal cell carcinoma Personal history of other malignant neoplasm of skin Nevus Benign neoplasm of skin, site unspecified documented in this encounter Care Teams Precast Worker Relationship Specialty Start Date End Date Katia Blanco APRN [address] [place] [address] PCP - General Family Medicine 02/13/19 11/11/22 documented as of this encounter
--- OUTSIDE RECORDS SUMMARY | 2024-01-17 15:32 | XMS_ITS | Encounter Summary ---
[place] [address] Care Team Providers Care Account Management Assistant Name Role Phone George Lou Primary Care Provider [phone] Reason for Visit * Reason Comments Follow-up Encounter Details Date Type Department Care Team (Late st Contact Info) Description 11/12/2022 9:00 AM EDT Office Visit Dermatology at [address] [phone] Jin Nunez MD [address] [facility] [place] [address] History of basal cell carcinoma; Nevus Social [...] post 4 stages of Mohs surgery 2016 [facility] 3. History of growing up in [place] and many years spent in [place] 4. 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 I has not noticed any new lesions of concern. 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 Physical examination reveals a pleasant seven 67-year-old [...] 8:15 AM EST Office Visit Dermatology at [place] [address] [facility] [place] [address] Jin Nunez MD [address] [facility] [place] [address] documented as of this encounter Visit Diagnoses Diagnosis History of basal cell carcinoma Personal history of other malignant neoplasm of skin Nevus Benign neoplasm of skin, site unspecified documented in this encounter Care Teams Account Management Assistant Relationship Specialty Start Date End Date George Lou PA [address] [place] [address] PCP - General Internal Medicine 11/12/22 documented as of this encounter
--- OUTSIDE RECORDS SUMMARY | 2024-01-17 15:33 | XMS_ITS | Encounter Summary ---
[place] [address] Care Team Providers Care Asp Developer Name Role Phone Gina Manzo MD Primary Care Provider [phone] Encounter Details Date Type Department Care Team (Late st Contact Info) Description 12/03/2012 11:20 AM EDT - 12/03/2012 11:50 AM EDT [place] [address] Gustabo Garza MD [facility] [place] [address] EGD, UPPER GI ENDOSCOPY (WRVU 2.09) Social [...] follow-up with your primary care physician and traveling operator. You will need a blood test the [...] scheduled with Dr. GINA MANZO MD at [address] [place] [address] on December 14 at 10:45 am. Future Appointments Date Time Provider Department Center 12/28/2012 8:45 AM 2, Ultrasound Rm [facility] None 12/28/2012 11:30 AM Paty Pedraza APRN [facility] [place] 4L [place] [facility] Your Discharge Medication List Unchanged CYLINDER HONER meds that are or will be resumed Medication Status Sig Dispense Refill ??? multivitamin (THERAGRAN) tablet Active Take 1 tablet by mouth daily. Changed CYLINDER HONER meds Medication Status Sig Dispense Refill ??? [...] as needed for Sleep. 20 tablet 0 CYLINDER HONER meds that are DCed or will be [...] mouth daily. Your Inpatient Medical Team at [facility] Name(s) of your inpatient provider(s): Drs. Andres Thompson, Cory Tellez, Ernesto Cardona, Gustabo Garza For questions regarding issues relating to your hospitalization on the Hospital Medicine Service, please contact your inpatient physician through the [facility] Change Lead [phone]. Issues after hours and on weekends will be handled by the Hospitalist staff on-call. Your Primary Care Provider GINA MANZO MD [phone] documented in this encounter Medications at Time [...] spent >30 minutes (Day of Discharge Code 68686) involved in the final examination of the [...] Cory Tellez - 12/06/2012 8:35 AM EDT [facility] - Attending Daily Progress Note [...] history. 24 Hour Events/Subjective: H+H, vitals stable [place] negative For capsule endoscopy today to eval [...] friable mucosa throughout the colon, may be medical claims representative of por kee hypertension. 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 I updated her today at bedside and spent >40 minutes with them today. -Disposition - pending medical improvement * Julienne Carlisle RN - 12/05/2012 5:16 PM EDT Initial Assessment/CRC Note Office of Care Management Alonzo Urbina 1955 [address] [facility] [address] Late Entry eDH reviewed. Report received from Dr. Tellez. Patient reviewed in multidisciplinary discharge rounds. S: This place is falling apart in my opinion. O: Introduced self and CRC role to patient and carlos Bowers; patient agrees to CRC services; pt currently lives with Elissa in own home in [place], [place]. CRC contact information left on patient [...] insured via Medicare A,B and D via [employer] and [place] [employer]. Transportation: Carlos will transport pt home. Anticipated Services at Discharge: will require re-assessment closer to time of d/c. Social Support Patient has given [facility] permission for carlos Parker ( cell [phone])to be contacted. A: medical plan still evolving. P: This director underwriter sales or colleague from the Office of Care Management will continue to follow patient to assist w/ changing needs and collaborate w/ pt, medical team and family to formulate a plan for discharge; CRC may be reached on beeper [phone] or by leaving a voice mail message at [phone]. [phone]. See Care Management note in eDH for detailed VNA/DME information upon discharge. Medical Team: Hospitalist Service, pager [phone]. Julienne Carlisle, RN, MSN, [facility] Clinical Crowning Inspector Office of Care Management Pager [phone] Phone: [phone] * Socorro Lomeli RN - 12/05/2012 3:09 [...] oozing or bleeding. - Normal examined duodenum. [place] 12/05: poor prep with no evidence of [...] to slow oozing from his portal gastropathy. [place] was poor prep with evidence of active [...] them as documented. Ernesto Cardona MD, MS mlt Section of Gastroenterology and Hepatology * Francia Nichole RN - 12/05/2012 12:40 PM EDT Report called to FREDY Niño. * Cory Tellez - 12/05/2012 8:25 AM EDT [facility] Medicine - Attending Daily Progress Note [...] cirrhosis c/h/o variceal sequential banding to eradication [id number], hx of UGIB without obvious clear source [...] fiance -Code status - Full; Elissa ruth ([phone]) is medical decision maker. I updated her today at bedside and spent >40 minutes with them today. -Disposition - pending medical improvement * Estela Barba, PT - 12/04/2012 2:47 PM EDT Physical therapy Referral received, Attempted initial visit, pt occupied with bathroom Will return tomorrow for evaluation ESTELA BARBA, PT * Cory Tellez - 12/04/2012 9:02 AM EDT [facility] - Attending Daily Progress Note [...] cirrhosis c/h/o variceal sequential banding to eradication [id number], hx of UGIB without obvious clear source [...] 01/11 -Code status - Full; Elissa ruth ([phone]) is medical decision maker. I updated her today at his request. -Disposition - pending medical improvement * Juliette Barreto, MELY - 12/04/2012 1:18 AM EDT Pt had a moderate loose BM at 0100. Black with streaks of adrianna red blood. * Cleopatra Camara, MELY - 12/03/2012 5:54 PM EDT Pt transferred to [address] from ICU accompanied by transportation staff. [...] Cory Tellez - 12/03/2012 8:47 AM EDT [facility] - Attending Daily Progress Note [...] TYPE MANUAL Component Value Range Specimen OD [id number] ABORh Type A Pos SELECTED CELL SCREEN [...] 01/11 -Code status - Full; Elissa ruth ([phone]) is medical decision maker. I updated her [...] behavior ID: 57 y.o. Male presents to [facility] with GI bleed. History of Present Illness: HPI Patient is a 57 Y M with history of Hepatitis C, cirrhosis Portal HTN who was transferred from [facility] for evaluation of GI bleed. [...] + Extremities: No edema, peripheral pulses + BEAUTY COUNSELOR: Awake, alert, oriented. No focal deficits. Laboratory [...] 12/08/2012 3:03 PM EDTAssociated Order(s): SCAN DOC: CONVERTIBLE TOP INSTALLER * Provider, Scanning - 12/08/2012 2:46 PM [...] a 57 y.o. male who presents to [facility] with GI bleeding History of Present Illness [...] Sharon Gill MD 12/02/122216 Sharon Gill MD 12/02/128 documented in this encounter Miscellaneous Notes * [...] cirrhosis Portal HTN who was transferred from [facility] for evaluation of GI bleed. [...] friable mucosa throughout the colon, may be medical claims representative of por eke hypertension. Recommendation: - Although possible that small [...] cirrhosis c/h/o variceal sequential banding to eradication [id number], hx of UGIB without obvious clear source [...] follow-up with your primary care physician and traveling operator. You will need a blood test the [...] scheduled with Dr. GINA MANZO MD at [address] [place] [address] on , December 14 at 10:45 am. Future Appointments Date Time Provider Department Center 12/28/2012 8:45 AM 2, Ultrasound Rm [facility] None 12/28/2012 11:30 AM Paty Pedraza APRN [facility] Your Discharge Medication List Unchanged CYLINDER HONER meds that are or will be resumed Medication Status Sig Dispense Refill ??? multivitamin (THERAGRAN) tablet Active Take 1 tablet by mouth daily. Changed CYLINDER HONER meds Medication Status Sig Dispense Refill ??? [...] as needed for Sleep. 20 tablet 0 CYLINDER HONER meds that are DCed or will be [...] mouth daily. Your Inpatient Medical Team at [facility] Name(s) of your inpatient provider(s): Drs. Andres Thompson, Cory Tellez, Ernesto Cardona, Gustabo Garza For questions regarding issues relating to your hospitalization on the Hospital Medicine Service, please contact your inpatient physician through the [facility] Change Lead [phone]. Issues after hours and on weekends will be handled by the Hospitalist staff on-call. Your Primary Care Provider GINA MANZO MD [phone] General Instructions None Future Appointments and Orders Future Appointments: Provider: Department: Dept Phone: Center: 12/28/2012 8:45 AM Ultrasound Rm 2 [facility] RAD ULTRASOUND [phone] None 12/28/2012 11:30 AM Paty Pedraza APRN Gastroenterology [phone] [facility] Discharge References/Attachments: Discharge References/Attachments None Inpatient Provider Contact Information: For questions regarding this document or issues relating to this hospitalization on the Medical Service, please contact your inpatient physician through the [facility] Change Lead . Issues afterhours and on weekends will [...] study. Patient has taken the 2000cc of Hiveoo ordered this afternoon. Medicated for nausea per JUN. * Op Note - Ernesto Cardona MD - 12/05/2012 5:03 PM EDT [facility] Operative Note Patient Name: Alonzo Urbina : [id number] MR#: [id number] Case Date: 12/05/2012 Surgeon: Surgeon(s) and Role: [...] 0 minutes ESTELA BARBA, PT 12/05/2012 Pager: [phone] Physical Therapy Rehabilitation Department * Plan of [...] MD - 12/02/2012 11:59 PM EDT . [facility] Section of Gastroenterology and Hepatology Initial Inpatient Consultation Patient Name: Alonzo Urbina : 1955 Referring provider: Dr. Granados, medicine Date of Consult: 12/02/12 Reason for Consult: UGIB History of Present Illness: Alonzo Urbina is a 57 y.o. WM, [facility] s/o ETOH abuse (sober 12/21), HCV (PEG [...] day denies daily use. Had colonoscopy at [facility] reportedly WNL. Last EGD09/21 Dr. Browne, [...] PM EDT Pt arrived via [facility] from [facility]. For evaluation of GI bleeding pt is alert oriented resp regular unlabored pt is dizzy when standing skin is cool and pale documented in this encounter Plan of Treatment Upcoming Encounters Date Type Department Care Team (Late st Contact Info) Description 2024 8:15 AM EST Office Visit Dermatology at [place] [address] [facility] [place] [address] Jin Nunez MD [address], [place] [address] documented as of this encounter Procedures Procedure Name Priority Date/Time Associated Diagnosis Comments CONVERTIBLE TOP INSTALLER SCAN 12/08/2012 3:03 PM EDT LAB SCAN [...] in this encounter Results * SCAN DOC: CONVERTIBLE TOP INSTALLER (12/08/2012 3:03 PM EDT) Anatomical Region Laterality [...] MD HEMATOLOGY ORDERABLE S Performing Organization Address City/State/[facility] Co de Phone Number CERNER [...] (12/06/2012 8:00 AM EDT) VIDEO CAPSULE ENDOSCOPY [facility] Endoscopy ___ Patient Name: Alonzo Urbina ? Procedure Date: 12/06/2012 8:00 AM ? Date of : 1955 ? Age: 57 ? Order #: [id number] ? ___ Procedure: ? Video capsule endoscopy [...] EDT Param Granados MD HEMATOLOGY ORDERAB LES [facility] CORINEENNIUM * (ABNORMAL) Hepatic Function Panel (12/06/2012 [...] In Lab Cory Tellez MD CHEMISTRY ORDERABLES [facility] CardiosolutionsJUANITOIUM * (ABNORMAL) Basic Metabolic Panel (non-fasting) (12/06/2012 6:12 AM EDT) Glucose 126 60 - 199 mg/dL CERNER MILLENNIUM Comment:Diabetes: >=200 mg/d L plus symptoms Blood Urea Nitrogen 8(L) 10 - 20 mg/dL CERNER MILLENNIUM Creatinine 0.84 0.80 - 1.50 mg/dL CERNER MILLENNIUM Comment: Please note that the pediatric reference intervals supplied above were not validated at [facility]. Results from pediatric patients should be interpreted [...] * COLONOSCOPY (12/05/2012 11:38 AM EDT) COLONOSCOPY [facility] Endoscopy ___ Patient Name: Alonzo Urbina ? Procedure Date: 12/05/2012 11:38 AM ? Date of : 1955 ? Age: 57 ? Order #: [id number] ? ___ Procedure: ? Colonoscopy Indications: ? Gastrointestinal occult blood loss Providers: ? Ernesto Cardona MD, Ariana Austin, ? , aDvi Kapadia RN, Janie Blood ? Marv, Sour Bleaching Pleater Referring MD: ? Medicines: ? Midazolam 4 [...] ? throughout the colon, may be ? medical claims representative of portal hypertension. Recommendation: ?- Although [...] EDT Param Granados MD HEMATOLOGY ORDERAB LES [facility] M[facility]DIGN[facility] CENTERIUM * (ABNORMAL) Basic Metabolic Panel (non-fasting) (12/05/2012 5:39 AM EDT) Pathologist [facility] Glucose 135 60 - 199 mg/dL CERNER MILLENNIUM Comment:Diabetes: >=200 mg/d L plus symptoms Blood Urea Nitrogen 14 10 - 20 mg/dL CERNER MILLENNIUM Creatinine 0.92 0.80 - 1.50 mg/dL CERNER MILLENNIUM Comment: Please note that the pediatric reference intervals supplied above were not validated at [facility]. Results from pediatric patients should be interpreted [...] Lab Param Granados MD HEMATOLOGY ORDERAB LES [facility] ADDIIUM * (ABNORMAL) Hemoglobin and Hematocrit, blood (12/04/2012 9:55 PM EDT) Hemoglobin 7.6(L) 13.7 - 17.5 gm/dL [facility] CORINEENNIUM Hematocrit 22.9(L) 40.0 - 51.0 % [facility] POOLENNIUM Blood specimen (specimen) 12/04/2012 9:55 PM EDT 12/04/2012 10:07 PM EDT Narrative Resulting Agency Comment Spec In Lab Cory Tellez MD HEMATOLOGY ORDERABLE S [facility] JOSSELYN * APTT (12/04/2012 3:13 PM EDT) Partial Thromboplastin Time 31 25 - 35 sec [facility] POOLENNIUM Comment: Recommended therapeutic PTT range for [...] MD HEMATOLOGY ORDERABLE S Performing Organization Address [facility] Co de Phone Number CERSIDDHARTH [...] intervals supplied above were not validated at [facility]. Results from pediatric patients should be interpreted [...] Tellez MD CHEMISTRY ORDERABLES Performing Organization Address City/[facility] de Phone Number THEO FONTANAIUM * (ABNORMAL) Prothrombin Time (12/04/2012 3:13 PM EDT) Prothrombin Time 16.2(H) 12.0 - 15.0 sec CERNER MILLENNIUM Comment: [facility] Transfusion Committee Guidelines: INR less than 2.0, [...] MD HEMATOLOGY ORDERABLE S Performing Organization Address [facility] de Phone Number THEO POOLENNIUM * (ABNORMAL) Hemoglobin and Hematocrit, blood (12/04/2012 9:13 AM EDT) Hemoglobin 7.7(L) 13.7 - 17.5 gm/dL CERNER MILLENNIUM Hematocrit 23.9(L) 40.0 - 51.0 % CERNER MILLENNIUM Blood specimen (specimen) 12/04/2012 9:13 AM EDT 12/04/2012 9:19 AM EDT Narrative Resulting Agency Comment Spec In Lab Cory Tellez MD HEMATOLOGY ORDERABLE S Performing Organization Address [facility] Co de Phone Number THEO [...] MD HEMATOLOGY ORDERABLE S Performing Organization Address [facility]/ZIP Co de Phone Number CERSIDDHARTH POOLENNIUM [...] OF CARE TEST ORDERABLES Performing Organization Address City/[facility]/ZIP Co de Phone Number THEO ARCOS [...] EDT Param Granados MD HEMATOLOGY ORDERAB LES [facility] CardiosolutionsENNIUM * (ABNORMAL) Basic Metabolic Panel (non-fasting) (12/03/2012 6:33 AM EDT) Glucose 128 60 - 199 mg/dL CERNER MILLENNIUM Comment:Diabetes: >=200 mg/d L plus symptoms Blood Urea Nitrogen 42(H) 10 - 20 mg/dL CERNER MILLENNIUM Creatinine 0.86 0.80 - 1.50 mg/dL CERNER MILLENNIUM Comment: Please note that the pediatric reference intervals supplied above were not validated at [facility]. Results from pediatric patients should be interpreted [...] MD HEMATOLOGY ORDERAB LES Performing Organization Address [facility] de Phone Number THEO ARCOS * Transfuse RBC (12/03/2012 5:33 AM EDT) Sharon Gill MD NURSING TREATMENT O RDERABLES - BLOOD ADMIN * Transfuse RBC (12/03/2012 5:33 AM EDT) Sharon Gill MD NURSING TREATMENT O RDERABLES - BLOOD ADMIN * POCT Glucose (12/03/2012 1:26 AM EDT) Glucose, POC 105 60 - 199 mg/dL [facility]O POOLDIGNITY HE[facility] ST[facility] JO[facility] MED[facility] CENTERJHONATHAN Comment: Supplemental ranges: <110 mg/dL before meals <200 mg/dL all other times of the day Blood specimen (specimen) 12/03/2012 1:26 AM EDT 12/03/2012 1:26 AM EDT Param Granados MD POINT OF CARE TEST ORDERABLES Performing Organization Address [facility] Phone Number THEO ARCOS * Prepare RBC (12/02/2012 11:00 PM EDT) Dispensed? Yes THEO ARCOS Blood specimen (specimen) 12/02/2012 11:00 PM EDT 12/02/2012 10:59 PM EDT Sharon Gill MD BLOOD BANK PRODUCT ORDERABLES Performing Organization Address [facility] de Phone Number THEO POOLDIGNITY HEALTH [facility] MED[facility] CENTERJHONATHAN * Selected Cell Screen (12/02/2012 10:30 PM [...] MD HEMATOLOGY ORDERABL ES Performing Organization Address [facility] de Phone Number THEO POOLENNIUM * Gold Tube HOLD (12/02/2012 10:30 PM EDT) Gold Hold Sample in lab. THEO FONTANAIUM Blood specimen (specimen) 12/02/2012 10:30 PM EDT 12/02/2012 10:33 PM EDT Sharon Gill MD CHEMISTRY ORDERABLE S Performing Organization Address [facility] de Phone Number THEO POOLENNIUM * (ABNORMAL) APTT (12/02/2012 10:30 PM EDT) Partial Thromboplastin Time 36(H) 25 - 35 sec [facility] CardiosolutionsENNIUM Comment: Recommended therapeutic PTT range for full dose unfractionated heparin is 80-114 seconds. Blood specimen (specimen) 12/02/2012 10:30 PM EDT 12/02/2012 10:33 PM EDT Narrative Resulting Agency Comment Spec In Lab Sharon Gill MD HEMATOLOGY ORDERABL ES Performing Organization Address [facility] de Phone Number THEO POOLENNIUM * (ABNORMAL) Prothrombin Time (12/02/2012 10:30 PM EDT) Prothrombin Time 16.8(H) 12.0 - 15.0 sec [facility] CardiosolutionsENNIUM Comment: [facility] Transfusion Committee Guidelines: INR less than 2.0, [...] intervals supplied above were not validated at [facility]. Results from pediatric patients should be interpreted [...] MD CHEMISTRY ORDERABLE S Performing Organization Address City/[facility] Co de Phone Number [facility] CORINEENNIUM * (ABNORMAL) BUN (12/02/2012 10:30 PM EDT) Blood Urea Nitrogen 41(H) 10 - 20 mg/dL [facility] MILLENNIUM Blood specimen (specimen) 12/02/2012 10:30 PM EDT 12/02/2012 10:33 PM EDT Narrative Resulting Agency Comment Spec In Lab Sharon Gill MD CHEMISTRY ORDERABLE S Performing Organization Address [facility] Co de Phone Number [facility] CORINEENNIUM * (ABNORMAL) Electrolytes panel (12/02/2012 10:30 PM EDT) Sodium 140 135 - 145 mmol/L [facility] MILLENNIUM Potassium 4.3 3.5 - 5.0 mmol/L [...] Until Tue12/05/12 at 1230, For Procedural use. [place] on area for one second. May repeat [...] RN) [phone] (New Bag - Provider: Radha Guzmná RN) 0008 (New Bag - Provider: Socorro [...] PRN, Starting on 12/03/12 at 0142, Until Adyan 12/07/12 at 1439, Nausea, Vomiting, If multiple [...] ineffective documented in this encounter Care Teams Asp Developer Relationship Specialty Start Date End Date Gina Manzo MD [address] [place] [address] PCP - General 03/03/10 02/12/19 documented as of this encounter
--- OUTSIDE RECORDS SUMMARY | 2024-01-17 15:33 | XMS_ITS | Encounter Summary ---
[place] [address] Care Team Providers Care Head Bellhop Captain Name Role Phone Gina Manzo MD Primary Care Provider [phone]- [phone] Encounter Details Date Type Department Care Team (Late st Contact Info) Description 12/06/2012 7:30 AM EDT - 12/06/2012 8:00 AM EDT [place] [address] Roland Patterson MD [facility] [place] [address] VIDEO CAPSULE ENDOSCOPY (WRVU 2.24) Social History [...] follow-up with your primary care physician and work study student. You will need a blood test the [...] scheduled with Dr. GINA MANZO MD at [address] [place] [address] on December 14 at 10:45 am. Future Appointments Date Time Provider Department Center 12/28/2012 8:45 AM 2, Ultrasound Rm [facility] None 12/28/2012 11:30 AM Paty Pedraza APRN [facility] Your Discharge Medication List Unchanged TIPPLE OILER meds that are or will be resumed Medication Status Sig Dispense Refill ??? multivitamin (THERAGRAN) tablet Active Take 1 tablet by mouth daily. Changed TIPPLE OILER meds Medication Status Sig Dispense Refill ??? [...] as needed for Sleep. 20 tablet 0 TIPPLE OILER meds that are DCed or will be [...] mouth daily. Your Inpatient Medical Team at [facility] Name(s) of your inpatient provider(s): Drs. Andres Thompson, Cory Tellez, Ernesto Cardona, Gustabo Garza For questions regarding issues relating to your hospitalization on the Hospital Medicine Service, please contact your inpatient physician through the [facility] Farm Specialist [phone]. Issues after hours and on weekends will be handled by the Hospitalist staff on-call. Your Primary Care Provider GINA MANZO MD [phone] documented in this encounter Medications at Time [...] spent >30 minutes (Day of Discharge Code 44109) involved in the final examination of the [...] Tellez - 12/06/2012 8:35 AM EDT [facility] Medicine - Attending Daily Progress Note [...] history. 24 Hour Events/Subjective: H+H, vitals stable Tiger negative For capsule endoscopy today to eval [...] friable mucosa throughout the colon, may be b2b sales representative of por kee hypertension. 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 I updated her today at bedside and spent >40 minutes with them today. -Disposition - pending medical improvement * Julienne Carlisle RN - 12/05/2012 5:16 PM EDT Initial Assessment/CRC Note Office of Care Management Alonzo Urbina 1955 [address] [facility] [address] Late Entry eDH reviewed. Report received from Dr. Tellez. Patient reviewed in multidisciplinary discharge rounds. S: This place is falling apart in my opinion. O: Introduced self and CRC role to patient and carlos Bowers; patient agrees to CRC services; pt currently lives with Elissa in own home in [place], [place]. CRC contact information left on patient [...] insured via Medicare A,B and D via [employer] and [place] [employer]. Transportation: Carlos will transport pt home. Anticipated Services at Discharge: will require re-assessment closer to time of d/c. Social Support Patient has given [facility] permission for carlos Parker ( cell [phone])to be contacted. A: medical plan still evolving. P: This signwriter or colleague from the Office of Care Management will continue to follow patient to assist w/ changing needs and collaborate w/ pt, medical team and family to formulate a plan for discharge; CRC may be reached on beeper [phone] or by leaving a voice mail message at ext. [phone]. See Care Management note in eDH for detailed VNA/DME information upon discharge. Medical Team: Hospitalist Service, pager [phone]. Julienne Carlisle, RN, MSN, [facility] Clinical Compensation Consultant Office of Care Management Pager [phone] Phone: [phone] * Socorro Lomeli RN - 12/05/2012 3:09 [...] oozing or bleeding. - Normal examined duodenum. Tiger 12/05: poor prep with no evidence of [...] to slow oozing from his portal gastropathy. Tiger was poor prep with evidence of active [...] them as documented. Ernesto Cardona MD, [place] litigation counsel Section of Gastroenterology and Hepatology * Francia Nichole RN - 12/05/2012 12:40 PM EDT Report called to FREDY Niño. 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 I updated her today at bedside and spent >40 minutes with them today. 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 I updated her today at his request. -Disposition - pending medical improvement * Juliette Barreto, MELY - 12/04/2012 1:18 AM EDT Pt had a moderate loose BM at 0100. Black with streaks of adrianna red blood. * Cleopatra Camara, MELY - 12/03/2012 5:54 PM EDT [facility] staff. A&Ox4. [...] Tellez - 12/03/2012 8:47 AM EDT [facility] Medicine - Attending Daily Progress Note [...] TYPE MANUAL Component Value Range Specimen OD [id number] ABORh Type A Pos SELECTED CELL SCREEN [...] 01/11 -Code status - Full; Elissa ruth ([phone]) is medical decision maker. I updated her [...] behavior ID: 57 y.o. Male presents to [facility] with GI bleed. History of Present Illness: HPI Patient is a 57 Y M with history of Hepatitis C, cirrhosis Portal HTN who was transferred from [facility] for evaluation of GI bleed. [...] + Extremities: No edema, peripheral pulses + MUSIC LEADER: Awake, alert, oriented. No focal deficits. Laboratory [...] 12/08/2012 3:03 PM EDTAssociated Order(s): SCAN DOC: HAND NAILER * Provider, Scanning - 12/08/2012 2:46 PM [...] a 57 y.o. male who presents to [facility] with GI bleeding History of Present Illness [...] cirrhosis Portal HTN who was transferred from [facility] for evaluation of GI bleed. [...] friable mucosa throughout the colon, may be b2b sales representative of por kee hypertension. 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 You will need a blood test the [...] scheduled with Dr. GINA MANZO MD at [address] [place] [address] on , December 14 at 10:45 am. Future Appointments Date Time Provider Department Center 12/28/2012 8:45 AM 2, Ultrasound Rm [facility] None 12/28/2012 11:30 AM Paty Pedraza APRN [facility] Your Discharge Medication List Unchanged TIPPLE OILER meds that are or will be resumed Medication Status Sig Dispense Refill ??? multivitamin (THERAGRAN) tablet Active Take 1 tablet by mouth daily. Changed TIPPLE OILER meds Medication Status Sig Dispense Refill ??? [...] as needed for Sleep. 20 tablet 0 TIPPLE OILER meds that are DCed or will be [...] mouth daily. Your Inpatient Medical Team at [facility] Name(s) of your inpatient provider(s): Drs. Andres Thompson, Cory Tellez, Ernesto Cardona, Gustabo Garza For questions regarding issues relating to your hospitalization on the Hospital Medicine Service, please contact your inpatient physician through the [facility] Farm Specialist [phone]. Issues after hours and on weekends will be handled by the Hospitalist staff on-call. Your Primary Care Provider GINA MANZO MD [phone] General Instructions None Future Appointments and Orders Future Appointments: Provider: Department: Dept Phone: Center: 12/28/2012 8:45 AM Ultrasound 2 [facility] RAD ULTRASOUND [phone] None 12/28/2012 11:30 AM Paty Pedraza APRN Gastroenterology [phone] [facility] Discharge References/Attachments: Discharge References/Attachments None Inpatient Provider Contact Information: For questions regarding this document or issues relating to this hospitalization on the Medical Service, please contact your inpatient physician through the [facility] Farm Specialist . Issues afterhours and on weekends will [...] study. Patient has taken the 2000cc of [email or web address] ordered this afternoon. Medicated for nausea per JUN. * Op Note - Ernesto Cardona MD - 12/05/2012 5:03 PM EDT [facility] Operative Note Patient Name: Alonzo Urbina : [id number] MR#: [id number] Case Date: 12/05/2012 Surgeon: Surgeon(s) and Role: [...] 0 minutes ESTELA BARBA, PT 12/05/2012 Pager: [phone] Physical Therapy Rehabilitation Department * Plan of [...] MD - 12/02/2012 11:59 PM EDT . [facility] Section of Gastroenterology and Hepatology Initial Inpatient Consultation Patient Name: Alonzo Urbina : 1955 Referring provider: Dr. Granados, medicine Date of Consult: 12/02/12 Reason for Consult: UGIB History of Present Illness: Alonzo Urbina is a 57 y.o. , [facility] s/o ETOH abuse (sober 12/21), HCV [...] day denies daily use. Had colonoscopy at [facility] reportedly WNL. Last EGD09/21 Dr. [...] PM EDT Pt arrived via [facility] from [facility]. For evaluation of GI bleeding pt is alert oriented resp regular unlabored pt is dizzy when standing skin is cool and pale documented in this encounter Plan of Treatment Upcoming Encounters Date Type Department Care Team (Late st Contact Info) Description 2024 8:15 AM EST Office Visit Dermatology at [place] [address] [facility] [place] [address] Jin Nunez MD [address], [place] [address] documented as of this encounter Procedures Procedure Name Priority Date/Time Associated Diagnosis Comments HAND NAILER SCAN 12/08/2012 3:03 PM EDT LAB SCAN [...] in this encounter Results * SCAN DOC: HAND NAILER (12/08/2012 3:03 PM EDT) Anatomical Region Laterality [...] EDT Cory Tellez MD HEMATOLOGY ORDERABLE S [facility] [employer]IUM * (ABNORMAL) CBC (with Diff) (12/07/2012 9:02 [...] (12/06/2012 8:00 AM EDT) VIDEO CAPSULE ENDOSCOPY [facility] Endoscopy ___ Patient Name: Alonzo Urbina ? Procedure Date: 12/06/2012 8:00 AM ? Date of : 1955 ? Age: 57 ? Order #: [id number] ? ___ Procedure: ? Video capsule endoscopy [...] EDT Param Granados MD HEMATOLOGY ORDERAB LES [facility] [employer]NIUM * (ABNORMAL) Hepatic Function Panel (12/06/2012 [...] In Lab Cory Tellez MD CHEMISTRY ORDERABLES [facility] ADDIIUM * (ABNORMAL) Basic Metabolic Panel (non-fasting) (12/06/2012 6:12 AM EDT) Glucose 126 60 - 199 mg/dL CERNER MILLENNIUM Comment:Diabetes: >=200 mg/d L plus symptoms Blood Urea Nitrogen 8(L) 10 - 20 mg/dL CERNER MILLENNIUM Creatinine 0.84 0.80 - 1.50 mg/dL CERNER MILLENNIUM Comment: Please note that the pediatric reference intervals supplied above were not validated at [facility]. Results from pediatric patients should be interpreted [...] * COLONOSCOPY (12/05/2012 11:38 AM EDT) COLONOSCOPY [facility] Endoscopy ___ Patient Name: Alonzo Urbina ? Procedure Date: 12/05/2012 11:38 AM ? Date of : 1955 ? Age: 57 ? Order #: [id number] ? ___ Procedure: ? Colonoscopy Indications: ? Gastrointestinal occult blood loss Providers: ? Ernesto Cardona MD, Ariana Austin, ? , Davi Kapadia, RN, Janie Blood ? Marv Internet Webmaster Referring MD: ? Medicines: ? Midazolam 4 [...] ? throughout the colon, may be ? b2b sales representative of portal hypertension. Recommendation: ?- [...] EDT Param Granados MD HEMATOLOGY ORDERAB LES [facility] * (ABNORMAL) Basic Metabolic Panel (non-fasting) (12/05/2012 5:39 AM EDT) [facility] Glucose 135 60 - 199 mg/dL CERNER MILLENNIUM Comment:Diabetes: >=200 mg/d L plus symptoms Blood Urea Nitrogen 14 10 - 20 mg/dL CERNER MILLENNIUM Creatinine 0.92 0.80 - 1.50 mg/dL CERNER MILLENNIUM Comment: Please note that the pediatric reference intervals supplied above were not validated at [facility]. Results from pediatric patients should be interpreted [...] Platelet Volume 9.3 9.0 - 12.0 fL [facility] MILLENNIUM Blood specimen (specimen) 12/05/2012 5:39 AM EDT 12/05/2012 6:00 AM EDT Narrative Resulting Agency Comment Spec In Lab Param Granados MD HEMATOLOGY ORDERAB LES [facility] FONTANAIUM * (ABNORMAL) Hemoglobin and Hematocrit, blood (12/04/2012 9:55 PM EDT) Hemoglobin 7.6(L) 13.7 - 17.5 gm/dL [facility] Hematocrit 22.9(L) 40.0 - 51.0 % [facility] CORINEENNIUM Blood specimen (specimen) 12/04/2012 9:55 PM EDT 12/04/2012 10:07 PM EDT Narrative Resulting Agency Comment Spec In Lab Cory Tellez MD HEMATOLOGY ORDERABLE S [facility] ADDIIUM * APTT (12/04/2012 3:13 PM EDT) Partial Thromboplastin Time 31 25 - 35 sec [facility] [employer]ENNIUM Comment: Recommended therapeutic PTT range for [...] MD HEMATOLOGY ORDERABLE S Performing Organization Address [facility]/ZIP Co de Phone Number CERSIDDHARTH POOLENNIUM * (ABNORMAL) Basic Metabolic Panel (non-fasting) (12/04/2012 3:13 PM EDT) Glucose 118 60 - 199 mg/dL CERNER MILLENNIUM Comment:Diabetes: >=200 mg/d L plus symptoms Blood Urea Nitrogen 20 10 - 20 mg/dL CERNER MILLENNIUM Creatinine 0.94 0.80 - 1.50 mg/dL CERNER MILLENNIUM Comment: Please note that the pediatric reference intervals supplied above were not validated at [facility]. Results from pediatric patients should be interpreted [...] Tellez MD CHEMISTRY ORDERABLES Performing Organization Address [facility] Co de Phone Number CERNER MILLENNIUM * [...] Tellez MD CHEMISTRY ORDERABLES Performing Organization Address [facility] de Phone Number THEO FONTANAIUM * (ABNORMAL) Prothrombin Time (12/04/2012 3:13 PM EDT) Prothrombin Time 16.2(H) 12.0 - 15.0 sec CERNER MILLENNIUM Comment: [facility] Transfusion Committee Guidelines: INR less than [...] MD HEMATOLOGY ORDERABLE S Performing Organization Address [facility] de Phone Number THEO FONTANAIUM * (ABNORMAL) Hemoglobin and Hematocrit, blood (12/04/2012 9:13 AM EDT) Hemoglobin 7.7(L) 13.7 - 17.5 gm/dL CERNER MILLENNIUM Hematocrit 23.9(L) 40.0 - 51.0 % CERNER MILLENNIUM Blood specimen (specimen) 12/04/2012 9:13 AM EDT 12/04/2012 9:19 AM EDT Narrative Resulting Agency Comment Spec In Lab Cory Tellez MD HEMATOLOGY ORDERABLE S Performing Organization Address [facility] de Phone Number THEO FONTANAIUM * (ABNORMAL) Hemoglobin and Hematocrit, blood (12/04/2012 6:32 AM EDT) Hemoglobin 8.0(L) 13.7 - 17.5 gm/dL CERNER MILLENNIUM Hematocrit 23.8(L) 40.0 - 51.0 % CERNER MILLENNIUM Blood specimen (specimen) 12/04/2012 6:32 AM EDT 12/04/2012 6:58 AM EDT Narrative Resulting Agency Comment Spec In Lab Cory Tellez MD HEMATOLOGY ORDERABLE S [facility] COR[employer]ENNIUM * Ammonia (12/04/2012 6:32 AM EDT) Ammonia 30 16 - 60 mcmol/L CERNER MILLENNIUM Blood specimen (specimen) 12/04/2012 6:32 AM EDT 12/04/2012 6:57 AM EDT Narrative Resulting Agency Comment Spec In Lab Cory Tellez MD CHEMISTRY ORDERABLES [facility] CORINEENNIUM * (ABNORMAL) Hemoglobin and Hematocrit, blood (12/03/2012 11:08 PM EDT) Hemoglobin 8.2(L) 13.7 - 17.5 gm/dL CERNER MILLENNIUM Hematocrit 24.5(L) 40.0 - 51.0 % CERNER MILLENNIUM Blood specimen (specimen) 12/03/2012 11:08 PM EDT 12/03/2012 11:13 PM EDT Narrative Resulting Agency Comment Spec In Lab Cory Tellez MD HEMATOLOGY ORDERABLE S Performing Organization Address [facility] Co de Phone Number [facility] MILLENNIUM * (ABNORMAL) Hemoglobin and Hematocrit, blood (12/03/2012 4:50 PM EDT) Hemoglobin 8.2(L) 13.7 - 17.5 gm/dL CERNER MILLENNIUM Hematocrit 25.1(L) 40.0 - 51.0 % CERNER MILLENNIUM Blood specimen (specimen) 12/03/2012 4:50 PM EDT 12/03/2012 4:50 PM EDT Narrative Resulting Agency Comment Spec In Lab Cory Tellez MD HEMATOLOGY ORDERABLE S [facility] CORINEENNIUM * Transfuse RBC (12/03/2012 12:06 PM EDT) Cory Tellez MD NURSING TREATMENT OR DERABLES - BLOOD ADMIN * Prepare RBC (12/03/2012 9:40 AM EDT) Dispensed? Yes THEO FONTANAIUM Blood specimen (specimen) 12/03/2012 9:40 AM EDT 12/03/2012 9:36 AM EDT Cory Tellez MD BLOOD BANK PRODUCT O RDERABLES THEO FONTANAIUM * POCT Glucose (12/03/2012 6:35 AM EDT) Pathologist [facility] Glucose, POC 129 60 - 199 mg/dL THEO FONTANAIUM Comment: Supplemental ranges: <110 mg/dL before meals <200 mg/dL all other times of the day Blood specimen (specimen) 12/03/2012 6:35 AM EDT 12/03/2012 6:35 AM EDT Param Granados MD POINT OF CARE TEST ORDERABLES Performing Organization Address City/[facility]/ZIP Co de Phone Number THEO ARCOS * [...] Panel (non-fasting) (12/03/2012 6:33 AM EDT) Pathologist [facility] Glucose 128 60 - 199 mg/dL CERNER MILLENNIUM Comment:Diabetes: >=200 mg/d L plus symptoms Blood Urea Nitrogen 42(H) 10 - 20 mg/dL CERNER MILLENNIUM Creatinine 0.86 0.80 - 1.50 mg/dL CERNER MILLENNIUM Comment: Please note that the pediatric reference intervals supplied above were not validated at [facility]. Results from pediatric patients should be interpreted [...] Lab Param Granados MD CHEMISTRY ORDERABL ES [facility] MILLENNIUM * (ABNORMAL) CBC (with Diff) (12/03/2012 [...] MD HEMATOLOGY ORDERAB LES Performing Organization Address [facility] de Phone Number THEO ARCOS * Transfuse RBC (12/03/2012 5:33 AM EDT) Sharon Gill MD NURSING TREATMENT O RDERABLES - BLOOD ADMIN * Transfuse RBC (12/03/2012 5:33 AM EDT) Sharon Gill MD NURSING TREATMENT O RDERABLES - BLOOD ADMIN * POCT Glucose (12/03/2012 1:26 AM EDT) Glucose, POC 105 60 - 199 mg/dL [facility] Comment: Supplemental ranges: <110 mg/dL before meals <200 mg/dL all other times of the day Blood specimen (specimen) 12/03/2012 1:26 AM EDT 12/03/2012 1:26 AM EDT Param Granados MD POINT OF CARE TEST ORDERABLES Performing Organization Address [facility] Phone Number THEO ARCOS * Prepare RBC (12/02/2012 11:00 PM EDT) Dispensed? Yes [facility] Blood specimen (specimen) 12/02/2012 11:00 PM EDT 12/02/2012 10:59 PM EDT Sharon Gill MD BLOOD BANK PRODUCT ORDERABLES Performing Organization Address [facility] de Phone Number [facility] * Selected Cell Screen (12/02/2012 [...] MD HEMATOLOGY ORDERABL ES Performing Organization Address [facility] Co de Phone Number THEO POOLENNIUM * Gold Tube HOLD (12/02/2012 10:30 PM EDT) Gold Hold Sample in lab. THEO FONTANAIUM Blood specimen (specimen) 12/02/2012 10:30 PM EDT 12/02/2012 10:33 PM EDT Sharon Gill MD CHEMISTRY ORDERABLE S Performing Organization Address [facility] de Phone Number THEO POOLENNIUM * (ABNORMAL) APTT (12/02/2012 10:30 PM EDT) Partial Thromboplastin Time 36(H) 25 - 35 sec [facility] [employer] [facility] Comment: Recommended therapeutic PTT range for full dose unfractionated heparin is 80-114 seconds. Blood specimen (specimen) 12/02/2012 10:30 PM EDT 12/02/2012 10:33 PM EDT Narrative Resulting Agency Comment Spec In Lab Sharon Gill MD HEMATOLOGY ORDERABL ES Performing Organization Address [facility] Co de Phone Number THEO POOLENNIUM * (ABNORMAL) Prothrombin Time (12/02/2012 10:30 PM EDT) Prothrombin Time 16.8(H) 12.0 - 15.0 sec [facility] [employer]coSIERRA VIST[facility]ION[facility] HEALTH CENTERIUM Comment: [facility] Transfusion Committee Guidelines: INR less than [...] intervals supplied above were not validated at [facility]. Results from pediatric patients should be interpreted [...] Lab Sharon Gill MD CHEMISTRY ORDERABLE S [facility] [employer]ENNIUM * (ABNORMAL) BUN (12/02/2012 10:30 PM EDT) Blood Urea Nitrogen 41(H) 10 - 20 mg/dL CERNER MILLENNIUM Blood specimen (specimen) 12/02/2012 10:30 PM EDT 12/02/2012 10:33 PM EDT Narrative Resulting Agency Comment Spec In Lab Sharon Gill MD CHEMISTRY ORDERABLE S [facility] [employer]ENNIUM * (ABNORMAL) Electrolytes panel (12/02/2012 10:30 [...] Lomeli RN) 0231 (Given - Provider: Radha uGzmán, RN)1400 (Given - Provider: Himanshu Gallegos RN) [...] PRN, Starting on 12/03/12 at 0142, Until Dayna 12/07/12 at 1439, Nausea, May repeat times [...] RN)1843 (Given - Provider: Socorro Lomeli RN) 6668 (Given - Provider: Socorro Lomeli RN) traZODone [...] ineffective documented in this encounter Care Teams Head Bellhop Captain Relationship Specialty Start Date End Date Gina Manzo MD [address] [place] [address] PCP - General 03/03/10 02/12/19 documented as of this encounter
--- OUTSIDE RECORDS SUMMARY | 2024-01-17 15:33 | XMS_ITS | Encounter Summary ---
[place] [address] Care Team Providers Care Locksmith Name Role Phone Gina Manzo MD Primary Care Provider [phone] Encounter Details Date Type Department Care Team (Late st Contact Info) Description 12/05/2012 11:00 AM EDT - 12/05/2012 11:45 AM EDT Surgery [place] [address] Ernesto Cardona MD [facility] [place] [address] COLONOSCOPY, DIAGNOSTIC (WRVU 3.26) Social History Tobacco [...] follow-up with your primary care physician and watcher lookout tower. You will need a blood test the [...] scheduled with Dr. GINA MANZO MD at [address] [place] [id number] on , December 14 at 10:45 am. Future Appointments Date Time Provider Department Center 12/28/2012 8:45 AM 2, Ultrasound [facility] None 12/28/2012 11:30 AM Paty Pedraza APRN [facility] Your Discharge Medication List Unchanged PICKLER HELPER meds that are or will be resumed Medication Status Sig Dispense Refill ??? multivitamin (THERAGRAN) tablet Active Take 1 tablet by mouth daily. Changed PICKLER HELPER meds Medication Status Sig Dispense Refill ??? [...] as needed for Sleep. 20 tablet 0 PICKLER HELPER meds that are DCed or will be [...] mouth daily. Your Inpatient Medical Team at [facility] Name(s) of your inpatient provider(s): Drs. Andres Thompson, Cory Tellez, Ernesto Cardona, Gustabo Garza For questions regarding issues relating to your hospitalization on the Hospital Medicine Service, please contact your inpatient physician through the [facility] Foot Setter [phone]. Issues after hours and on weekends will be handled by the Hospitalist staff on-call. Your Primary Care Provider GINA MANZO MD [phone] documented in this encounter Medications at Time [...] spent >30 minutes (Day of Discharge Code [id number]) involved in the final examination of the [...] Cory Tellez - 12/06/2012 8:35 AM EDT [facility] Medicine - Attending Daily Progress Note [...] history. 24 Hour Events/Subjective: H+H, vitals stable [place] negative For capsule endoscopy today to eval [...] friable mucosa throughout the colon, may be marketing sales representative of por kee hypertension. 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 I updated her today at bedside and spent >40 minutes with them today. -Disposition - pending medical improvement * Julienne Carlisle RN - 12/05/2012 5:16 PM EDT Initial Assessment/CRC Note Office of Care Management Alonzo Urbina 1955 [address] [facility] [address] Late Entry eDH reviewed. Report received from Dr. Tellez. Patient reviewed in multidisciplinary discharge rounds. S: This place is falling apart in my opinion. O: Introduced self and CRC role to patient and carlos Bowers; patient agrees to CRC services; pt currently lives with Elissa in own home in [place], [place]. CRC contact information left on patient [...] insured via Medicare A,B and D via [employer] and [employer]. Transportation: Carlos will transport pt home. Anticipated Services at Discharge: will require re-assessment closer to time of d/c. Social Support Patient has given [facility] permission for carlos Parker ( cell [phone])to be contacted. A: medical plan still evolving. P: This movie writer or colleague from the Office of Care Management will continue to follow patient to assist w/ changing needs and collaborate w/ pt, medical team and family to formulate a plan for discharge; CRC may be reached on beeper [phone] or by leaving a voice mail message at [phone]. [phone]. See Care Management note in eDH for detailed VNA/DME information upon discharge. Medical Team: Hospitalist Service, pager [phone]. Julienne Carlisle, RN, MSN, [facility] Clinical Digital Print Operator Office of Care Management Pager [phone] Phone: [phone] * Socorro Lomeli RN - 12/05/2012 3:09 [...] oozing or bleeding. - Normal examined duodenum. [place] 12/05: poor prep with no evidence of [...] to slow oozing from his portal gastropathy. [place] was poor prep with evidence of active [...] them as documented. Ernesto Cardona MD, MS loading rack supervisor Section of Gastroenterology and Hepatology * Francia Nichole RN - 12/05/2012 12:40 PM EDT Report called to FREDY Niño. 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 I updated her today at bedside and spent >40 minutes with them today. 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 I updated her [...] Cory Tellez - 12/03/2012 8:47 AM EDT [facility] Medicine - Attending Daily Progress Note [...] TYPE MANUAL Component Value Range Specimen OD [id number] ABORh Type A Pos SELECTED CELL SCREEN [...] 01/11 -Code status - Full; Elissa ruth ([phone]) is medical decision maker. I updated her [...] behavior ID: 57 y.o. Male presents to [facility] with GI bleed. History of Present Illness: HPI Patient is a 57 Y M with history of Hepatitis C, cirrhosis Portal HTN who was transferred from [facility] for evaluation of GI bleed. 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 No focal deficits. Laboratory [...] 12/08/2012 3:03 PM EDTAssociated Order(s): SCAN DOC: HOG COUNTER * Provider, Scanning - 12/08/2012 2:46 PM [...] regular unlabored IV's infusing without difficulty * Micahel Browne RN - 12/02/2012 11:12 PM EDT [...] a 57 y.o. male who presents to [facility] with GI bleeding History of Present Illness [...] Gill MD 12/02/12 221 Sharon Gill MD 12/02/127 documented in this encounter Miscellaneous Notes * [...] cirrhosis Portal HTN who was transferred from [facility] for evaluation of GI bleed. Patient [...] friable mucosa throughout the colon, may be marketing sales representative of por kee hypertension. 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 You will need a blood test the [...] scheduled with Dr. GINA MANZO MD at [address] [place] [address] on December 14 at 10:45 am. Future Appointments Date Time Provider Department Center 12/28/2012 8:45 AM 2, Ultrasound Rm [facility] None 12/28/2012 11:30 AM Paty Pedraza, SAMANTHA PADILL[address] [facility] Your Discharge Medication List Unchanged PICKLER HELPER meds that are or will be resumed Medication Status Sig Dispense Refill ??? multivitamin (THERAGRAN) tablet Active Take 1 tablet by mouth daily. Changed PICKLER HELPER meds Medication Status Sig Dispense Refill ??? [...] as needed for Sleep. 20 tablet 0 PICKLER HELPER meds that are DCed or will be [...] mouth daily. Your Inpatient Medical Team at [facility] Name(s) of your inpatient provider(s): Drs. Andres Thompson, Cory Tellez, Ernesto Cardona, Gustabo Garza For questions regarding issues relating to your hospitalization on the Hospital Medicine Service, please contact your inpatient physician through the [facility] Foot Setter [phone]. Issues after hours and on weekends will be handled by the Hospitalist staff on-call. Your Primary Care Provider GINA MANZO MD [phone] General Instructions None Future Appointments and Orders Future Appointments: Provider: Department: Dept Phone: Center: 12/28/2012 8:45 AM Ultrasound Rm 2 [facility] RAD ULTRASOUND [phone] None 12/28/2012 11:30 AM Paty Pedraza APRN Gastroenterology [phone] [facility] Discharge References/Attachments: Discharge References/Attachments None Inpatient Provider Contact Information: For questions regarding this document or issues relating to this hospitalization on the Medical Service, please contact your inpatient physician through the [facility] Foot Setter . Issues afterhours and on weekends will [...] study. Patient has taken the 2000cc of Aggredyne ordered this afternoon. Medicated for nausea per JUN. * Op Note - Ernesto Cardona MD - 12/05/2012 5:03 PM EDT [facility] Operative Note Patient Name: Alonzo Urbina : [id number] MR#: [id number] Case Date: 12/05/2012 Surgeon: Surgeon(s) and Role: [...] 0 minutes ESTELA BARBA PT 12/05/2012 Pager: [phone] Physical Therapy Rehabilitation Department * Plan of [...] MD - 12/02/2012 11:59 PM EDT . [facility] Section of Gastroenterology and Hepatology Initial Inpatient Consultation Patient Name: Alonzo Urbina : 1955 Referring provider: Dr. Granados, medicine Date of Consult: 12/02/12 Reason for Consult: UGIB History of Present Illness: Alonzo Urbina is a 57 y.o. WM, [facility] s/o ETOH abuse (sober 12/21), HCV (PEG [...] daily use. Had colonoscopy at [facility] reportedly WNL. Last EGD09/21 Dr. Browne, [...] PM EDT Pt arrived via [facility] from [facility] For evaluation of GI bleeding pt is alert oriented resp regular unlabored pt is dizzy when standing skin is cool and pale documented in this encounter Plan of Treatment Upcoming Encounters Date Type Department Care Team (Late st Contact Info) Description 2024 8:15 AM EST Office Visit Dermatology at [place] [address] [facility] [place] [id number] Jin uNnez MD [address], [place] [address] documented as of this encounter Procedures Procedure Name Priority Date/Time Associated Diagnosis Comments HOG COUNTER SCAN 12/08/2012 3:03 PM EDT LAB SCAN [...] in this encounter Results * SCAN DOC: HOG COUNTER (12/08/2012 3:03 PM EDT) Anatomical Region Laterality [...] 8:00 AM EDT) VIDEO CAPSULE ENDOSCOPY [facility] Endoscopy ___ Patient Name: Alonzo Urbina ? Procedure Date: 12/06/2012 8:00 AM ? N: [id number] ? Date of : 1955 ? Age: 57 ? Order #: [id number] ? ___ Procedure: ? Video capsule endoscopy [...] MD HEMATOLOGY ORDERAB LES Performing Organization Address [facility] Co de Phone Number [facility] * (ABNORMAL) Hepatic Function Panel (12/06/2012 [...] Tellez MD CHEMISTRY ORDERABLES Performing Organization Address [facility] Co de Phone Number [facility] * (ABNORMAL) Basic Metabolic Panel (non-fasting) (12/06/2012 6:12 AM EDT) Glucose 126 60 - 199 mg/dL CERNER MILLENNIUM Comment:Diabetes: >=200 mg/d L plus symptoms Blood Urea Nitrogen 8(L) 10 - 20 mg/dL CERNER MILLENNIUM Creatinine 0.84 0.80 - 1.50 mg/dL CERNER MILLENNIUM Comment: Please note that the pediatric reference intervals supplied above were not validated at [facility]. Results from pediatric patients should be interpreted [...] Narrative Resulting Agency Comment Spec In Lab aPram Granados MD HEMATOLOGY ORDERAB LES [facility]ERS[facility] POOLENNIUM [...] COLONOSCOPY (12/05/2012 11:38 AM EDT) COLONOSCOPY [facility] Endoscopy ___ Patient Name: Alonzo Urbina ? Procedure Date: 12/05/2012 11:38 AM ? Date of : 1955 ? Age: 57 ? Order #: [id number] ? ___ Procedure: ? Colonoscopy Indications: ? Gastrointestinal occult blood loss Providers: ? Ernesto Cardona MD, Ariana Austin, ? , Davi Kapadia RN, Janie Blood ? Marv, Cloth Printing Inspector Referring MD: ? Medicines: ? Midazolam 4 [...] ? throughout the colon, may be ? marketing sales representative of portal hypertension. Recommendation: ?- [...] EDT Param Granados MD HEMATOLOGY ORDERAB LES [facility] * (ABNORMAL) Basic Metabolic Panel (non-fasting) (12/05/2012 5:39 AM EDT) [facility] Glucose 135 60 - 199 mg/dL CERNER MILLENNIUM Comment:Diabetes: >=200 mg/d L plus symptoms Blood Urea Nitrogen 14 10 - 20 mg/dL CERN[facility] MILLENNIUM Creatinine 0.92 0.80 - 1.50 mg/dL CERN[facility] MILLENNIUM Comment: Please note that the pediatric reference intervals supplied above were not validated at [facility]. Results from pediatric patients should be interpreted [...] Lab Param Granados MD HEMATOLOGY ORDERAB LES [facility] * (ABNORMAL) Hemoglobin and Hematocrit, blood (12/04/2012 9:55 PM EDT) Hemoglobin 7.6(L) 13.7 - 17.5 gm/dL [facility] Hematocrit 22.9(L) 40.0 - 51.0 % [facility] Blood specimen (specimen) 12/04/2012 9:55 PM EDT 12/04/2012 10:07 PM EDT Narrative Resulting Agency Comment Spec In Lab Cory Tellez MD HEMATOLOGY ORDERABLE S [facility] * APTT (12/04/2012 3:13 PM EDT) Partial Thromboplastin Time 31 25 - 35 sec [facility] Comment: Recommended therapeutic PTT range for full dose unfractionated heparin is 80-114 seconds. Blood specimen (specimen) 12/04/2012 3:13 PM EDT 12/04/2012 3:26 PM EDT Narrative Resulting Agency Comment Spec In Lab Cory Tellez MD HEMATOLOGY ORDERABLE S Performing Organization Address City/[facility]/ZIP Co de Phone Number CERNER MILLENNIUM * (ABNORMAL) Hemoglobin and Hematocrit, blood (12/04/2012 3:13 PM EDT) Hemoglobin 8.4(L) 13.7 - 17.5 gm/dL [facility] MILLENNIUM Hematocrit 25.8(L) 40.0 - 51.0 % [facility] MILLENNIUM Blood specimen (specimen) 12/04/2012 3:13 PM EDT 12/04/2012 3:25 PM EDT Narrative Resulting Agency Comment Spec In Lab Cory Tellez MD HEMATOLOGY ORDERABLE S Performing Organization Address [facility] de Phone Number [facility]ERN[facility] MILLENNIUM * (ABNORMAL) Basic Metabolic Panel (non-fasting) (12/04/2012 3:13 PM EDT) Glucose 118 60 - 199 mg/dL [facility]ERN[facility] MILLENNIUM Comment:Diabetes: >=200 mg/d L plus symptoms Blood Urea Nitrogen 20 10 - 20 mg/dL [facility]ERN[facility] MILLENNIUM Creatinine 0.94 0.80 - 1.50 mg/dL [facility] MILLENNIUM Comment: Please note that the pediatric reference intervals supplied above were not validated at [facility]. Results from pediatric patients should be interpreted [...] Tellez MD CHEMISTRY ORDERABLES Performing Organization Address [facility] de Phone Number [facility]ID[facility] MILLENNIUM * (ABNORMAL) Prothrombin Time (12/04/2012 3:13 PM EDT) Prothrombin Time 16.2(H) 12.0 - 15.0 sec CERNER MILLENNIUM Comment: [facility] Transfusion Committee Guidelines: INR less [...] MD HEMATOLOGY ORDERABLE S Performing Organization Address [facility] de Phone Number [facility]ERNER MILLENNIUM * (ABNORMAL) Hemoglobin and Hematocrit, blood (12/04/2012 9:13 AM EDT) Hemoglobin 7.7(L) 13.7 - 17.5 gm/dL [facility] MILLENNIUM Hematocrit 23.9(L) 40.0 - 51.0 % [facility] MILLENNIUM Blood specimen (specimen) 12/04/2012 9:13 AM EDT 12/04/2012 9:19 AM EDT Narrative Resulting Agency Comment Spec In Lab Cory Tellez MD HEMATOLOGY ORDERABLE S Performing Organization Address [facility] Co de Phone Number CERNER MILLENNIUM * (ABNORMAL) Hemoglobin and Hematocrit, blood (12/04/2012 6:32 AM EDT) Hemoglobin 8.0(L) 13.7 - 17.5 gm/dL CERN[facility] MILLENNIUM Hematocrit 23.8(L) 40.0 - 51.0 % [facility] MILLENNIUM Blood specimen (specimen) 12/04/2012 6:32 AM EDT 12/04/2012 6:58 AM EDT Narrative Resulting Agency Comment Spec In Lab Cory Tellez MD HEMATOLOGY ORDERABLE S Performing Organization Address City/[facility] Co de Phone Number THEO POOLENNIUM * Ammonia (12/04/2012 6:32 AM EDT) Ammonia 30 16 - 60 mcmol/L CERN[facility] MILLENNIUM Blood specimen (specimen) 12/04/2012 6:32 AM EDT 12/04/2012 6:57 AM EDT Narrative Resulting Agency Comment Spec In Lab Cory Tellez MD CHEMISTRY ORDERABLES Performing Organization Address [facility] de Phone Number THEO POOLENNIUM * (ABNORMAL) Hemoglobin and Hematocrit, blood (12/03/2012 11:08 PM EDT) Hemoglobin 8.2(L) 13.7 - 17.5 gm/dL CERN[facility] MILLENNIUM Hematocrit 24.5(L) 40.0 - 51.0 % [facility]ERN[facility] MILLENNIUM Blood specimen (specimen) 12/03/2012 11:08 PM EDT 12/03/2012 11:13 PM EDT Narrative Resulting Agency Comment Spec In Lab Cory Tellez MD HEMATOLOGY ORDERABLE S Performing Organization Address [facility] de Phone Number CERSIDDH[facility] POOLENNIUM * (ABNORMAL) Hemoglobin and Hematocrit, blood (12/03/2012 4:50 PM EDT) Hemoglobin 8.2(L) 13.7 - 17.5 gm/dL CERNER MILLENNIUM Hematocrit 25.1(L) 40.0 - 51.0 % CERN[facility] MILLENNIUM Blood specimen (specimen) 12/03/2012 4:50 PM EDT 12/03/2012 4:50 PM EDT Narrative Resulting Agency Comment Spec In Lab Cory Tellez MD HEMATOLOGY ORDERABLE S Performing Organization Address City/[facility] Co de Phone Number CERSIDDHARTH MILLENNIUM * Transfuse RBC (12/03/2012 12:06 PM EDT) Cory Tellez MD NURSING TREATMENT OR DERABLES - BLOOD ADMIN * Prepare RBC (12/03/2012 9:40 AM EDT) Pathologist [facility] Dispensed? Yes [facility] Blood specimen (specimen) 12/03/2012 9:40 AM EDT 12/03/2012 9:36 AM EDT Cory Tellez MD BLOOD BANK PRODUCT O RDERABLES [facility] * POCT Glucose (12/03/2012 6:35 AM EDT) Pathologist [facility] Glucose, POC 129 60 - 199 mg/dL [facility] Comment: Supplemental ranges: <110 mg/dL before meals <200 mg/dL all other times of the day Blood specimen (specimen) 12/03/2012 6:35 AM EDT 12/03/2012 6:35 AM EDT Param Granados MD POINT OF CARE TEST ORDERABLES Performing Organization Address City/[facility] Co de Phone Number [facility] POOLFLAGSTA[facility] CENTERJHONATHAN * Differential, Automated (12/03/2012 6:33 AM EDT) Neutrophil % 56.9 34.0 - 71.0 % [facility] Neutrophil Absolute 2.67 1.50 - 6.30 x10(3)/mcL [...] EDT Param Granados MD HEMATOLOGY ORDERAB LES [facility] MILLENNIUM * (ABNORMAL) Basic Metabolic Panel (non-fasting) (12/03/2012 6:33 AM EDT) [facility] Glucose 128 60 - 199 mg/dL CERNER MILLENNIUM Comment:Diabetes: >=200 mg/d L plus symptoms Blood Urea Nitrogen 42(H) 10 - 20 mg/dL CERNER MILLENNIUM Creatinine 0.86 0.80 - 1.50 mg/dL CERNER MILLENNIUM Comment: Please note that the pediatric reference intervals supplied above were not validated at [facility]. Results from pediatric patients should be interpreted [...] MD HEMATOLOGY ORDERAB LES Performing Organization Address [facility] Co de Phone Number THEO ARCOS * Transfuse RBC (12/03/2012 5:33 AM EDT) Sharon Gill MD NURSING TREATMENT O RDERABLES - BLOOD ADMIN * Transfuse RBC (12/03/2012 5:33 AM EDT) Sharon Gill MD NURSING TREATMENT O RDERABLES - BLOOD ADMIN * POCT Glucose (12/03/2012 1:26 AM EDT) Pathologist [facility] Glucose, POC 105 60 - 199 mg/dL [facility] Comment: Supplemental ranges: <110 mg/dL before meals <200 mg/dL all other times of the day Blood specimen (specimen) 12/03/2012 1:26 AM EDT 12/03/2012 1:26 AM EDT Param Granados MD POINT OF CARE TEST ORDERABLES Performing Organization Address [facility] Phone Number THEO ARCOS * Prepare RBC (12/02/2012 11:00 PM EDT) Dispensed? Yes THEO ARCOS Blood specimen (specimen) 12/02/2012 11:00 PM EDT 12/02/2012 10:59 PM EDT Sharon Gill MD BLOOD BANK PRODUCT ORDERABLES Performing Organization Address [facility] Phone Number [facility] CORINE[facility]ENTERJHONATHAN * Selected Cell Screen (12/02/2012 [...] BANK LAB ORDJluis [place] Performing Organization Address City/[facility] Co de Phone Number CERNER MILLENNIUM [...] MD HEMATOLOGY ORDERABL ES Performing Organization Address [facility] Co de Phone Number THEO FONTANAIUM * Gold Tube HOLD (12/02/2012 10:30 PM EDT) Gold Hold Sample in lab. THEO FONTANAIUM Blood specimen (specimen) 12/02/2012 10:30 PM EDT 12/02/2012 10:33 PM EDT Sharon Gill MD CHEMISTRY ORDERABLE S Performing Organization Address [facility] de Phone Number THEO POOLENNIUM * (ABNORMAL) APTT (12/02/2012 10:30 PM EDT) Partial Thromboplastin Time 36(H) 25 - 35 sec [facility] Comment: Recommended therapeutic PTT range for full dose unfractionated heparin is 80-114 seconds. Blood specimen (specimen) 12/02/2012 10:30 PM EDT 12/02/2012 10:33 PM EDT Narrative Resulting Agency Comment Spec In Lab hSaron Gill MD HEMATOLOGY ORDERABL ES Performing Organization Address [facility] de Phone Number THEO FONTANAIUM * (ABNORMAL) Prothrombin Time (12/02/2012 10:30 PM EDT) Prothrombin Time 16.8(H) 12.0 - 15.0 sec [facility] Comment: [facility] Transfusion Committee Guidelines: INR less [...] MD HEMATOLOGY ORDERABL ES Performing Organization Address [facility] de Phone Number CERNER MILLENNIUM * (ABNORMAL) [...] MD CHEMISTRY ORDERABLE S Performing Organization Address City/[facility] Co de Phone Number CERNER MILLENNIUM * Glucose, random (12/02/2012 10:30 PM EDT) Glucose 121 60 - 199 mg/dL CERNER MILLENNIUM Comment:Diabetes: >=200 mg/d L plus symptoms Blood specimen (specimen) 12/02/2012 10:30 PM EDT 12/02/2012 10:33 PM EDT Narrative Resulting Agency Comment Spec In Lab Sharon Gill MD CHEMISTRY ORDERABLE S Performing Organization Address City/[facility]/ZIP Co de Phone Number THEO ARCOS * (ABNORMAL) Creatinine (12/02/2012 10:30 PM EDT) Creatinine 0.76(L) 0.80 - 1.50 mg/dL THEO POOLENNIUM Comment: Please note that the pediatric reference intervals supplied above were not validated at [facility]. Results from pediatric patients should be interpreted [...] MD CHEMISTRY ORDERABLE S Performing Organization Address [facility] Phone Number THEO ARCOS * (ABNORMAL) BUN (12/02/2012 10:30 PM EDT) Blood Urea Nitrogen 41(H) 10 - 20 mg/dL [facility] AR[facility] Blood specimen (specimen) 12/02/2012 10:30 PM EDT 12/02/2012 10:33 PM EDT Narrative Resulting Agency Comment Spec In Lab Sharon Gill MD CHEMISTRY ORDERABLE S Performing Organization Address [facility] de Phone Number THEO ARCOS * (ABNORMAL) Electrolytes panel (12/02/2012 10:30 PM EDT) Sodium 140 135 - 145 mmol/L [facility] [facility] Potassium 4.3 3.5 - 5.0 mmol/L CERNER [...] Sharon Gill MD HEMATOLOGY ORDERABL ES [facility] documented in this encounter Visit Diagnoses [...] ineffective documented in this encounter Care Teams Locksmith Relationship Specialty Start Date End Date Gina Manzo MD [address] [place] [address] PCP - General 03/03/10 02/12/19 documented as of this encounter
--- OUTSIDE RECORDS SUMMARY | 2024-01-17 15:34 | XMS_ITS | Encounter Summary ---
[place] [address] Care Team Providers Care Flight Deck Officer Name Role Phone Laurie Wiggins MD Primary Care Provider +1- [phone] Reason for Visit * Reason Comments Cirrhosis Hepatitis C Encounter Details Date Type Department Care Team (Late st Contact Info) Description 07/29/2010 11:00 AM EDT [place] [address] Paty Pedraza APRN [facility] [place] [address] Cirrhosis (Primary Dx) Discharge Disposition: Home Social [...] underwent serial variceal band ligation ( at [facility])and was banded in December 2007 (6 bands), January 2008 ( 4 bands) and April of 2008 (3 bands). 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
--- OUTSIDE RECORDS SUMMARY | 2024-01-17 15:34 | XMS_ITS | Encounter Summary ---
[place] [address] Care Team Providers Care Rand Cementer Name Role Phone Laurie Wiggins MD Primary Care Provider +1- [phone] Encounter Details Date Type Department Care Team (Late st Contact Info) Description 06/25/2010 8:00 AM EDT Procedure [place] [address] Boo Browne MD [facility] [place] [address] Social History Tobacco Use Types Packs/Day Years [...] 8:15 AM EST Office Visit Dermatology at [place] [address] [place] [id number] Jin Nunez MD [address], [place] [address] documented as of this encounter Visit Diagnoses Not on filedocumented in this encounter Care Teams Rand Cementer Relationship Specialty Start Date End Date Laurie Wiggins MD [address] [place] [address] PCP - General 03/03/10 02/12/19 documented as of this encounter
--- OUTSIDE RECORDS SUMMARY | 2024-01-17 15:34 | XMS_ITS | Encounter Summary ---
[place] [address] Care Team Providers Care Sign Language Teacher Name Role Phone Laurie Wiggins MD Primary Care Provider +1- [phone] Reason for Visit * Reason Comments Follow-up Encounter Details Date Type Department Care Team (Late st Contact Info) Description 04/17/2012 11:30 AM EST [place] [address] CLINIC, Paty Verdugo APRN [facility] [place] [address] Cirrhosis (Primary Dx) Discharge Disposition: Home Social [...] underwent serial variceal band ligation ( at [facility])and was banded in December 2007 (6 bands), January 2008 ( 4 bands) and April of 2008 (3 bands). 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 [...] 8:15 AM EST Office Visit Dermatology at [place] [address] [place] [address] Jin Nunez MD [address], [place] [address] Scheduled Orders Name Type Priority Associated Diagnoses [...] Neutrophil % 67.1 34.0 - 71.0 % [facility] Neutrophil Absolute 5.49 1.50 - 6.30 x10(3)/[facility] CERNER MILLENNIUM Lymph % 21.9 19.0 - 53.0 % [facility] MILLENNIUM Lymphocytes Abs 1.8 1.0 - 3.6 x10(3)/[facility] CERNER MILLENNIUM Monocyte % 7.4 4.0 - 13.0 % [facility] M[facility] Monocyte Abs 0.6 0.2 - 1.0 x10(3)/[facility] CERNER MILLENNIUM Eos % 3.3 0.0 - 7.0 % CERNER MILLENNIUM Eosinophils Abs 0.3 0.0 - 0.5 x10(3)/[facility] CERNER MILLENNIUM Basophil % 0.1 0.0 - 2.0 % CERNER MILLENNIUM Baso Absolute 0.0 0.0 - 0.2 x10(3)/[facility] CERNER MILLENNIUM Immature Gran % 0.20 0.00 - 0.66 % [facility] Comment: Immature granulocytes(IG's)percentage and absolute count will include metamyelocytes, myelocytes, and promyelocytes. Blood smears from CBCs yielding IG's will be scanned manually for concordance. If this scan disagrees with the automated IG or if promyelocytes are noted, a manual differential will be performed. Immature Gran Absolute 0.02 0.00 - 0.05 x10(3)/mcL [facility] CORINEENNIUM Blood specimen (specimen) 04/17/2012 8:52 AM EST 04/17/2012 8:56 AM EST Gustabo Garza MD HEMATOLOGY ORDERABL ES [facility] * (ABNORMAL) AFP tumor marker (04/17/2012 8:52 AM EST) Pathologist [facility] Alpha Fetoprotein 6(H) <=5 ng/mL [facility] Comment: Note new Reference Range as of 12-20-2011. Reference: Immulite 2000 AFP package insert ([id number], 2009-01-02) Blood specimen (specimen) 04/17/2012 8:52 AM EST 04/17/2012 12:01 PM EST Narrative Resulting Agency Comment Spec In Lab Gustabo Garza MD CHEMISTRY ORDERABLE S Performing Organization Address [facility] de Phone Number [facility] * Prothrombin Time (04/17/2012 8:52 AM EST) Prothrombin Time 14.5 11.9 - 14.7 sec CERNER MILLENNIUM Comment: [facility] Transfusion Committee Guidelines: INR less than [...] MD HEMATOLOGY ORDERABL ES Performing Organization Address [facility] Phone Number [facility] * (ABNORMAL) Comprehensive metabolic panel (non-fasting) (04/17/2012 8:52 AM EST) Glucose 118 60 - 199 mg/dL CERNER MILLENNIUM Comment:Diabetes: >=200 mg/d L plus symptoms Blood Urea Nitrogen 34(H) 10 - 20 mg/dL CERNER MILLENNIUM Creatinine 1.21 0.80 - 1.50 mg/dL CERNER MILLENNIUM Comment: Please note that the pediatric reference intervals supplied above were not validated at [facility]. Results from pediatric patients should be interpreted [...] Resulting Agency Comment Spec In Lab Gustabo Graza MD HEMATOLOGY ORDERABL ES [facility] documented in this encounter Visit Diagnoses Diagnosis Cirrhosis- Primary Cirrhosis of liver without mention of alcohol documented in this encounter Care Teams Sign Language Teacher Relationship Specialty Start Date End Date Laurie Wiggins MD [address] [place] [address] PCP - General 03/03/10 02/12/19 documented as of this encounter
--- OUTSIDE RECORDS SUMMARY | 2024-01-17 15:34 | XMS_ITS | Encounter Summary ---
[place] [address] Care Team Providers Care Communications Field Technician Name Role Phone Laurie Wiggins MD Primary Care Provider +1- [phone] Encounter Details Date Type Department Care Team (Late st Contact Info) Description 02/15/2010 [place] [address] [place] [address] Social History Tobacco Use Types Packs/Day Years [...] 8:15 AM EST Office Visit Dermatology at [place] [address] [place] [address] Jin Nunez MD [address], [place] [address] documented as of this encounter Procedures Procedure [...] GI ENDOSCOPY (06/25/2010 9:46 AM EDT) Pathologist [facility] UPPER GI ENDOSCOPY [facility] Endoscopy ___ Patient Name: Alma Carballo ? Procedure Date: 06/25/2010 09:46:41 AM ? N: [id number] ? Date of : 1955 ? Age: 55 ? ___ Procedure: ? Upper GI endoscopy Indications: ? prior history of GI bleed, cirrhosis, ? 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 Boo Browne MD, Alma Rivera ? MELY Hilton, Bernie Martinez, ? Compensation Consultant Referring MD: ?Laurie Wiggins MD, Paty Pedraza, [...] Zazueta MD CHEMISTRY ORDERABLES Performing Organization Address [facility] de Phone Number [facility] * BUN (02/17/2010 4:30 AM EST) Blood Urea Nitrogen 13 10 - 20 mg/dL [facility] Blood specimen (specimen) 02/17/2010 4:30 AM EST 02/17/2010 5:01 AM EST Guille Zazueta MD CHEMISTRY ORDERABLES Performing Organization Address [facility] Co de Phone Number [facility] * ELECTROLYTE PANEL (02/17/2010 4:30 AM EST) Sodium 138 135 - 145 mmol/L CERNER MILLENNIUM Potassium 3.8 3.5 - 5.0 mmol/L [facility] MILL[facility] Comment: Please note: ??Patients with WBC [...] Zazueta MD CHEMISTRY ORDERABLES Performing Organization Address City/[facility]/ZIP Co de Phone Number CERNER MILLENNIUM * (ABNORMAL) HEPATIC FUNCTION PANEL (02/17/2010 4:30 AM EST) Pathologist [facility] Protein, Total 5.3(L) 6.4 - 8.3 gm/dL CERNER MILLENNIUM Albumin 2.9(L) 3.2 - 5.2 gm/dL CERNER MILLENNIUM Aspartate Aminotransferase 93(H) 0 - 39 unit/L CERNER MILLENNIUM Alanine Aminotransferase 78(H) 0 - 55 unit/L CERNER MILLENNIUM Alkaline Phosphatase 64 40 - 120 unit/L CERNER MILLENNIUM Bilirubin, Total 0.4 0.2 - 1.3 mg/dL CERNER MILLENNIUM Comment:result rechecked-[facility] Bilirubin, Direct 0.2 0.0 - 0.3 mg/dL CERNER MILLENNIUM Blood specimen (specimen) 02/17/2010 4:30 AM EST 02/17/2010 5:01 AM EST Guille Zazueta MD CHEMISTRY ORDERABLES [facility] * (ABNORMAL) REFLEX LAB-A-DIFF (02/17/2010 4:30 AM EST) Pathologist [facility] Neutrophil % 48.1 34.0 - 71.0 % [...] MD HEMATOLOGY ORDERABLE S Performing Organization Address City/[facility] Co de Phone Number THEO POOLENNI[facility] * (ABNORMAL) HEMOGLOBIN AND HEMATOCRIT, BLOOD (02/16/2010 11:50 PM EST) Hemoglobin 8.9(L) 13.7 - 17.5 gm/dL CERNER MILLENNIUM Hematocrit 26.8(L) 40.0 - 51.0 % [facility] MILLENNIUM Blood specimen (specimen) 02/16/2010 11:50 PM EST 02/16/2010 11:55 PM EST Guille Zazueta MD HEMATOLOGY ORDERABLE S Performing Organization Address [facility] Phone Number [facility]O FONTANAI[facility] * (ABNORMAL) HEMOGLOBIN AND HEMATOCRIT, BLOOD (02/16/2010 6:45 PM EST) Hemoglobin 8.9(L) 13.7 - 17.5 gm/dL [facility] MILLENNIUM Hematocrit 26.5(L) 40.0 - 51.0 % [facility] MILLENNIUM Blood specimen (specimen) 02/16/2010 6:45 PM EST 02/16/2010 6:52 PM EST Guille Zazueta MD HEMATOLOGY ORDERABLE S Performing Organization Address [facility] Co de Phone Number THEO POOLENNIUM [...] REFLEX LAB-SCAN (02/16/2010 4:45 AM EST) Pathologist [facility] Plat estimate Decreased CERNER MILLENNIUM RBC Morphology Normal CERNE R MILLENNIUM Blood specimen (specimen) 02/16/2010 4:45 AM EST 02/16/2010 5:02 AM EST Guille Zazueta MD HEMATOLOGY ORDERABLE S C[facility]ER MILLENNIUM * (ABNORMAL) REFLEX LAB-A-DIFF (02/16/2010 4:45 AM EST) Pathologist [facility] Neutrophil % 40.4 34.0 - 71.0 % [...] Guille Zazueta MD HEMATOLOGY ORDERABLE S [facility] * (ABNORMAL) CBC (02/16/2010 4:45 AM EST) [...] MD HEMATOLOGY ORDERABLE S Performing Organization Address [facility] de Phone Number [facility]O FON[facility]NAI[facility] * BUN (02/16/2010 4:45 AM EST) Blood Urea Nitrogen 16 10 - 20 mg/dL C[facility]ER MILLENNIUM Blood specimen (specimen) 02/16/2010 4:45 AM EST 02/16/2010 5:02 AM EST Guille Zazueta MD CHEMISTRY ORDERABLES Performing Organization Address City/[facility] Co de Phone Number [facility]O POOL[facility] * (ABNORMAL) PHOSPHORUS (02/16/2010 4:45 AM EST) Phosphorus 4.7(H) 2.5 - 4.5 mg/dL CERNER MILLENNIUM Blood specimen (specimen) 02/16/2010 4:45 AM EST 02/16/2010 5:02 AM EST Guille Zazueta MD CHEMISTRY ORDERABLES Performing Organization Address City/[facility] Co de Phone Number THEO POOLENNIUM [...] 0.0 - 0.3 mg/dL CERNER MILLENNIUM Comment:result rechecked-[facility] Blood specimen (specimen) 02/16/2010 4:45 AM EST 02/16/2010 5:02 AM EST Guille Zazueta MD CHEMISTRY ORDERABLES Performing Organization Address City/[facility] Co de Phone Number [facility] MILLENNIUM * MAGNESIUM (02/16/2010 4:45 AM EST) Magnesium 0.75 0.69 - 1.07 mmol/L [facility] MILLENNIUM Blood specimen (specimen) 02/16/2010 4:45 AM EST 02/16/2010 5:02 AM EST Guille Zazueta MD CHEMISTRY ORDERABLES Performing Organization Address [facility]/State/[facility] Co de Phone Number [facility] * CREATININE, SERUM (02/16/2010 4:45 AM [...] Zazueta MD CHEMISTRY ORDERABLES Performing Organization Address [facility] de Phone Number [facility] MILLENNIUM * (ABNORMAL) CALCIUM (02/16/2010 4:45 AM EST) Calcium 7.8(L) 8.5 - 10.5 mg/dL C[facility] MILLENNIUM Blood specimen (specimen) 02/16/2010 4:45 AM EST 02/16/2010 5:02 AM EST Guille Zazueta MD CHEMISTRY ORDERABLES Performing Organization Address [facility] Co de Phone Number [facility] MILLENNIUM * ELECTROLYTE PANEL (02/16/2010 4:45 AM [...] questions. Chloride 106 98 - 107 mmol/L [facility] MILL[facility] Carbon Dioxide 25 22 - 31 mmol/L CERNER MILLENNIUM Anion Gap 8 5 - 15 mmol/L [facility] Blood specimen (specimen) 02/16/2010 4:45 AM EST 02/16/2010 5:02 AM EST Guille Zazueta MD CHEMISTRY ORDERABLES Performing Organization Address [facility] Phone Number [facility] * APTT (02/16/2010 4:45 AM EST) Partial Thromboplastin Time 30 25 - 37 sec [facility] Comment: Recommended therapeutic PTT range for full dose unfractionated heparin is 80-114 seconds. Blood specimen (specimen) 02/16/2010 4:45 AM EST 02/16/2010 5:02 AM EST Guille Zazueta MD HEMATOLOGY ORDERABLE S Performing Organization Address [facility] Phone Number [facility] * (ABNORMAL) PROTIME-INR (02/16/2010 4:45 AM EST) Prothrombin Time 15.6(H) 11.8 - 15.0 sec [facility] Comment: [facility] Transfusion Committee Guidelines: INR less than 2.0, PTT less than OR equal to 43.5 seconds, or Fibrinogen greater than or equal to 100 mg/dl indicate adequate procoagulant activity for hemostasis in patients without underlying bleeding disorders. International Normalization Ratio 1.2(H) 0.9 - 1.1 [facility] MILLENNIUM Blood specimen (specimen) 02/16/2010 4:45 AM EST 02/16/2010 5:02 AM EST Guille Zazueta MD HEMATOLOGY ORDERABLE S Performing Organization Address [facility] Phone Number [facility] * POCT GLUCOMETER ORDER (LAB USE ONLY) (02/15/2010 11:10 PM EST) Glucose, POC 97 70 - 110 mg/dL [facility] Comment: Supplemental ranges: <110 mg/dL before meals <200 mg/dL all other times of the day Blood specimen (specimen) 02/15/2010 11:10 PM EST 02/15/2010 11:10 PM EST Ana M Strong MD POINT OF CARE TEST O RDERABLES Performing Organization Address [facility] Co de Phone Number [facility] * REFLEX LAB-AB COMMENT (02/15/2010 6:45 [...] should be identifiable in inventory. ZMS 02/23/2010 [facility] Comment: Howard Llamas, Pathologist Verified:02/23/10 Blood specimen (specimen) 02/15/2010 6:45 PM EST 02/15/2010 7:01 PM EST Guille Zazueta MD BLOOD BANK LAB ORDER CLAUDIO Performing Organization Address [facility] de Phone Number [facility] * BLOOD TYPING, ANTIGEN SCREEN (02/15/2010 6:45 PM EST) Pathologist [facility] Antigen Type c- c- c+ [facility] Blood specimen (specimen) 02/15/2010 6:45 PM EST 02/15/2010 8:41 PM EST Guille Zazueta MD BLOOD BANK LAB ORDER CLAUDIO Performing Organization Address [facility] Co de Phone Number [facility] * BLOOD TYPING, ANTIGEN SCREEN (02/15/2010 6:45 PM EST) Antigen Type E+ E- E- [facility] Blood specimen (specimen) 02/15/2010 6:45 PM EST 02/15/2010 9:20 PM EST Guille Zazueta MD BLOOD BANK LAB ORDER CLAUDIO Performing Organization Address City/[facility] Co de Phone Number [facility] * DIRECT ANTIGLOBULIN TEST (02/15/2010 6:45 PM EST) HERIBERTO Poly Negative [facility] Blood specimen (specimen) 02/15/2010 6:45 PM EST 02/15/2010 9:09 PM EST Guille Zazueta MD BLOOD BANK LAB ORDER CLAUDIO Performing Organization Address City/[facility] Co de Phone Number [facility] * REFLEX LAB-ANTIBODY IDENTIFICATION (02/15/2010 6:45 PM EST) Ab Identified Anti-E Anti-c [facility] Blood specimen (specimen) 02/15/2010 6:45 PM EST 02/15/2010 7:01 PM EST Guille Zazueta MD BLOOD BANK LAB ORDER CLAUDIO Performing Organization Address City/[facility]/ZIP Co de Phone Number [facility] * REFLEX LAB-ANTIBODY SCREEN (02/15/2010 6:45 PM EST) Ab Screen Interp Positive [facility] Expires at [phone] on: [id number] [facility] Blood specimen (specimen) 02/15/2010 6:45 PM EST 02/15/2010 7:01 PM EST Guille Zazueta MD BLOOD BANK LAB ORDER CLAUDIO [facility] MILLENNIUM * REFLEX LAB-ABO/RH (02/15/2010 6:45 PM EST) ABORH Type A Pos CERNER MILLENNIUM Blood specimen (specimen) 02/15/2010 6:45 PM EST 02/15/2010 7:01 PM EST Guille Zazueta MD BLOOD BANK LAB ORDER CLAUDIO Performing Organization Address [facility] de Phone Number [facility] * PHOSPHORUS (02/15/2010 6:45 PM EST) Phosphorus 4.2 2.5 - 4.5 mg/dL CERNER MILLENNIUM Blood specimen (specimen) 02/15/2010 6:45 PM EST 02/15/2010 7:00 PM EST Guille Zazueta MD CHEMISTRY ORDERABLES Performing Organization Address [facility] Phone Number [facility] * MAGNESIUM (02/15/2010 6:45 PM EST) Magnesium 0.76 0.69 - 1.07 mmol/L [facility] MILLENNIUM Blood specimen (specimen) 02/15/2010 6:45 PM EST 02/15/2010 7:00 PM EST Guille Zazueta MD CHEMISTRY ORDERABLES Performing Organization Address [facility] Phone Number [facility] * [...] Zazueta MD CHEMISTRY ORDERABLES Performing Organization Address [facility] de Phone Number THEO POOLENNI[facility] * ELECTROLYTE [...] Zazueta MD CHEMISTRY ORDERABLES Performing Organization Address [facility] de Phone Number THEO FONTANAI[facility] * [...] Zazueta MD CHEMISTRY ORDERABLES Performing Organization Address [facility] de Phone Number [facility] * (ABNORMAL) CALCIUM (02/15/2010 6:45 PM EST) Calcium 8.3(L) 8.5 - 10.5 mg/dL [facility] Blood specimen (specimen) 02/15/2010 6:45 PM EST 02/15/2010 7:00 PM EST Guille Zazueta MD CHEMISTRY ORDERABLES Performing Organization Address [facility] de Phone Number [facility] * BUN (02/15/2010 6:45 PM EST) Blood Urea Nitrogen 15 10 - 20 mg/dL [facility] [employer]ENNI[facility] Blood specimen (specimen) 02/15/2010 6:45 PM EST 02/15/2010 7:00 PM EST Guille Zazueta MD CHEMISTRY ORDERABLES Performing Organization Address [facility] Co de Phone Number [facility] * APTT (02/15/2010 6:45 PM EST) Partial Thromboplastin Time 30 25 - 37 sec [facility] Comment: Recommended therapeutic PTT range for full dose unfractionated heparin is 80-114 seconds. Blood specimen (specimen) 02/15/2010 6:45 PM EST 02/15/2010 7:01 PM EST Guille Zazueta MD HEMATOLOGY ORDERABLE S Performing Organization Address [facility] de Phone Number [facility] * PROTIME-INR (02/15/2010 6:45 PM EST) Prothrombin Time 14.6 11.8 - 15.0 sec [facility] Comment: [facility] Transfusion Committee Guidelines: INR less than 2.0, PTT less than OR equal to 43.5 seconds, or Fibrinogen greater than or equal to 100 mg/dl indicate adequate procoagulant activity for hemostasis in patients without underlying bleeding disorders. International Normalization Ratio 1.1 0.9 - 1.1 [facility] Blood specimen (specimen) 02/15/2010 6:45 PM EST 02/15/2010 7:01 PM EST Guille Zazueta MD HEMATOLOGY ORDERABLE S Performing Organization Address [facility] de Phone Number [facility] * (ABNORMAL) REFLEX LAB-A-DIFF (02/15/2010 6:45 PM EST) Neutrophil % 54.9 34.0 - 71.0 % [facility] MILL[facility] Neutrophil Absolute 2.25 1.50 - 6.30 [...] 7:33 AM EST) Surgical Pathology Report ? [facility] ? Provider: ?? TIFF REYES ? Pt. Name: ?? ALMA CARBALLO ? Acc #: ?[id number] ?Pt. ? Col Date: ?? 02/15/2010 ? [...] [facility]O [facility] 02/15/2010 7:33 AM EST Tiff Reyes MD PATHOLOGY/CYTOLOGY O JOE [facility] documented in this encounter Visit Diagnoses Not on filedocumented in this encounter Care Teams Communications Field Technician Relationship Specialty Start Date End Date Laurie Wiggins MD [address] [place] [address] PCP - General 03/03/10 02/12/19 documented as of this encounter
--- OUTSIDE RECORDS SUMMARY | 2024-01-17 15:34 | XMS_ITS | Encounter Summary ---
Author Organization [facility] [place] [address] Care Team Providers Care Air Sealing Technician Name Role Phone Laurie Wiggins MD Primary Care Provider +1- [phone] Encounter Details Date Type Department Care Team (Late st Contact Info) Description 04/17/2012 9:57 AM EST - 04/17/2012 11:59 PM [facility] Hospital [place] [address] Cirrhosis Social History Tobacco Use Types Packs/Day [...] 8:15 AM EST Office Visit Dermatology at [place] [address] [place] [address] Jin Nunez MD [address], [place] [address] documented as of this encounter Procedures Procedure [...] 04/17/2012 11:44 am) Patient Info ID: ? [id number] ? : ??[birth year] (56 yrs) Name: ? ALMA CARBALLO ? Visit Date: 04/17/2012 10:49 am Performed By Performed By: ?Any Pike Associate: ? Lauren LESTER, Torres Junior Attending: ? Blake Case MD Referred By: ? CLEMENCIA HERNANDEZ MD Service(s) Provided [facility] - Abdominal Complete Survey - [id number] ? [id number] Indications Cirrhosis ----- Liver ----- Right Lobe [...] Final 04/17/2012 11:44 am) Patient Info ID: [id number] : 51 (56 yrs) Name: ALMA CARBALLO Visit Date: 04/17/2012 10:49 am Performed By Performed By: Any Pike Associate: Torres Aguilar MD Attending: Blake Case MD Referred By: CLEMENCIA HERNANDEZ MD Service(s) Provided [facility] - Abdominal Complete Survey - [phone] Indications Cirrhosis ----- Liver ----- Right Lobe [...] alcohol documented in this encounter Care Teams Air Sealing Technician Relationship Specialty Start Date End Date Laurie Wiggins MD [address] [place] [address] PCP - General 03/03/10 02/12/19 documented as of this encounter
--- OUTSIDE RECORDS SUMMARY | 2024-01-17 15:34 | XMS_ITS | Encounter Summary ---
[place] [address] Care Team Providers Care Revenue Settlements Administrator Name Role Phone Laurie Wiggins MD Primary Care Provider +1- [phone] Reason for Visit * Reason Comments GI Problem Encounter Details Date Type Department Care Team (Late st Contact Info) Description 12/15/2011 11:00 AM EDT Follow-[place] [address] Paty Pedraza APRN [facility] [place] [address] Cirrhosis (Primary Dx) Discharge Disposition: Home Social [...] underwent serial variceal band ligation ( at [facility])and was banded in December 2007 (6 bands), January 2008 ( 4 bands) and April of 2008 (3 bands). 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 Reference: Immulite 2000 AFP package insert ([id number], 2009-01-02) Blood specimen (specimen) 09/27/2012 8:29 AM EDT 09/27/2012 12:28 PM EDT Narrative Resulting Agency Comment Spec In Lab Clemencia Hernandez MD CHEMISTRY ORDERABLE S [facility] * Prothrombin Time (09/27/2012 8:29 AM EDT) Prothrombin Time 14.1 12.0 - 15.0 sec THEO ARCOS Comment: [facility] Transfusion Committee Guidelines: INR less than [...] intervals supplied above were not validated at [facility]. Results from pediatric patients should [...] Lab Clemencia Hernandez MD CHEMISTRY ORDERABLE S [facility] CORINEENNIUM * (ABNORMAL) CBC (with Diff) (09/27/2012 [...] Comment Spec In Lab Clemencia Hernandez MD [facility] THEO ARCOS * abdomen complete (04/17/2012 10:57 AM EST) Anatomical Region Laterality Modality Abdomen, Vascular Ultrasound 04/17/2012 10:5 7 AM EST Narrative 04/17/2012 11:44 AM EST ?Abdominal ? (Signed Final 04/17/2012 11:44 am) Patient Info ID: ? [id number] ? : ??51 (56 yrs) Name: ? ALMA CARBALLO ? Visit Date: 04/17/2012 10:49 am Performed By Performed By: ?Any Pike Associate: ? Torres Aguilar MD Attending: ? Blake Case MD Referred By: ? CLEMENCIA HERNANDEZ MD Service(s) Provided [facility] - Abdominal Complete Survey - [id number] ? [id number] Indications Cirrhosis ----- Liver ----- Right Lobe [...] Final 04/17/2012 11:44 am) Patient Info ID: [id number] : 51 (56 yrs) Name: ALMA CARBALLO Visit Date: 04/17/2012 10:49 am Performed By Performed By: Any Pike Associate: Lauren LESTER, Torres Junior Attending: Blake Case MD Referred By: CLEMENCIA HERNANDEZ MD Service(s) Provided [facility] - Abdominal Complete Survey - [phone] Indications Cirrhosis ----- Liver ----- Right Lobe [...] 12-20-2011. Reference: Immulite 2000 AFP package insert ([id number], 2009-01-02) Blood specimen (specimen) 04/17/2012 8:52 AM EST 04/17/2012 12:01 PM EST Narrative Resulting Agency Comment Spec In Lab Clemencia Hernandez MD CHEMISTRY ORDERABLE S Performing Organization Address [facility] Phone Number THEO ARCOS * Prothrombin Time (04/17/2012 8:52 AM EST) Prothrombin Time 14.5 11.9 - 14.7 sec CERNER MILLENNIUM Comment: [facility] Transfusion Committee Guidelines: INR less than [...] HEMATOLOGY ORDERABL ES Performing Organization Address [facility] Phone Number THEO ARCOS * (ABNORMAL) Comprehensive metabolic panel (non-fasting) (04/17/2012 8:52 AM EST) Glucose 118 60 - 199 mg/dL CERNER MILLENNIUM Comment:Diabetes: >=200 mg/d L plus symptoms Blood Urea Nitrogen 34(H) 10 - 20 mg/dL CERNER MILLENNIUM Creatinine 1.21 0.80 - 1.50 mg/dL CERNER MILLENNIUM Comment: Please note that the pediatric reference intervals supplied above were not validated at [facility]. Results from pediatric patients should [...] HEMATOLOGY ORDERABL ES Performing Organization Address [facility] de Phone Number [facility] CORINEENNIUM * AFP tumor marker (12/15/2011 11:42 AM EDT) Alpha Fetoprotein 9 <=19 ng/mL [facility] MILLENNIUM Blood specimen (specimen) 12/15/2011 11:42 AM EDT 12/15/2011 2:26 PM EDT Narrative Resulting Agency Comment Spec In Lab Clemencia Hernandez MD CHEMISTRY ORDERABLE S Performing Organization Address [facility] Co de Phone Number [facility] CORINEENNIUM * Prothrombin Time (12/15/2011 11:42 AM EDT) Pathologist [facility] Prothrombin Time 14.5 11.9 - 14.7 sec CERNER MILLENNIUM Comment: [facility] Transfusion Committee Guidelines: INR less than 2.0, PTT less than OR equal to 43.5 seconds, or Fibrinogen greater than or equal to 100 mg/dl indicate adequate procoagulant activity for hemostasis in patients without underlying bleeding disorders. International Normalization Ratio 1.1 0.9 - 1.1 [facility] MILLENNIUM Blood specimen (specimen) 12/15/2011 11:42 AM EDT 12/15/2011 11:53 AM EDT Narrative Resulting Agency Comment Spec In Lab Clemencia Hernandez MD HEMATOLOGY ORDERABL ES Performing Organization Address [facility] de Phone Number [facility] * (ABNORMAL) Comprehensive metabolic panel (non-fasting) (12/15/2011 11:42 AM EDT) Glucose 74 60 - 199 mg/dL [facility] MILLENNIUM Comment:Diabetes: >=200 mg/d L plus symptoms Blood Urea Nitrogen 14 10 - 20 mg/dL [facility] MILLENNIUM Creatinine 0.60(L) 0.80 - 1.50 mg/dL CERNER MILLENNIUM Comment: Please note that the pediatric reference intervals supplied above were not validated at [facility]. Results from pediatric patients should [...] Lab Clemencia Hernandez MD CHEMISTRY ORDERABLE S [facility] CogniFitENNIUM * (ABNORMAL) CBC (with Diff) (12/15/2011 11:42 [...] alcohol documented in this encounter Care Teams Revenue Settlements Administrator Relationship Specialty Start Date End Date Laurie Wiggins MD [address] [place] [address] PCP - General 03/03/10 02/12/19 documented as of this encounter
--- OUTSIDE RECORDS SUMMARY | 2024-01-17 15:34 | XMS_ITS | Encounter Summary ---
[place] [address] Care Team Providers Care Check Processor Name Role Phone Unavailable Primary Care Provider Unavailabl e Encounter Details Date Type Department Care Team (Late st Contact Info) Description 02/24/2010 2:30 PM EST [place] [address] Paty Pedraza APRN [facility] [address] [place] [address] Social History Tobacco Use Types Packs/Day Years [...] 8:15 AM EST Office Visit Dermatology at [place] [address] [place] [address] Jin Nunez MD [address], [place] [address] documented as of this encounter Visit Diagnoses Not on filedocumented in this encounter
--- OUTSIDE RECORDS SUMMARY | 2024-01-17 15:34 | XMS_ITS | Encounter Summary ---
[place] [address] Care Team Providers Care Dry Chain Operator Name Role Phone Laurie Wiggins MD Primary Care Provider +1- [phone] Encounter Details Date Type Department Care Team (Late st Contact Info) Description 09/19/2012 4:15 PM EDT - 09/19/2012 4:45 PM EDT [place] [address] Boo Browne MD [facility] [address] EGD, UPPER GI ENDOSCOPY (WRVU 2.09) Social [...] occurs, please contact your MD/ Please call [phone] before 5pm with problems, questions or concerns. After 5pm call [phone] and ask to speak with the loss prevention guard career and technology education teacher. Discharge instructions reviewed with patient who expresses [...] PM EDT * Op Note - Boo Borwne MD - 09/19/2012 4:[address] [facility] Operative Note Patient Name: Alonzo Urbina : [id number] MR#: [id number] Case Date: 09/19/2012 Surgeon: Surgeon(s) and Role: [...] 8:15 AM EST Office Visit Dermatology at [place] [address] [place] [address] Jin Nunez MD [address], [place] [address] documented as of this encounter Procedures Procedure Name Priority Date/Time Associated Diagnosis Comments EGD, UPPER GI ENDOSCOPY (WRVU 2.09) 09/19/2012 4:17 PM EDT Cirrhosis of liver UPPER GI ENDOSCOPY Routine 09/19/2012 3: 51 PM EDT documented in this encounter Results * UPPER GI ENDOSCOPY (09/19/2012 3:51 PM EDT) [facility] Signature UPPER GI ENDOSCOPY [facility] Endoscopy Patient Name: Alonzo Urbina ? Procedure Date: 09/19/2012 3:51 PM ? N: [id number] ? Date of : 1955 ? Age: 57 ? Order #: [id number] ? Procedure: ? Upper GI endoscopy Indications: ? Melena, Follow-up of esophageal ? varices Providers: ? Boo Browne MD, Luis Fernando Caban ? MELY Elizonod, Joanne Wu RN Referring : ?Laurie Wiggins MD, Paty Rivera ? Ray, EXPLOSIVE OPERATOR GRENADE Medicines: ? Midazolam 4 mg IV, Fentanyl [...] time) documented in this encounter Care Teams Dry Chain Operator Relationship Specialty Start Date End Date Laurie Wiggins MD [address] [place] [address] PCP - General 03/03/10 02/12/19 documented as of this encounter
--- OUTSIDE RECORDS SUMMARY | 2024-01-17 15:34 | XMS_ITS | Encounter Summary ---
Author Organization [facility] [place] [address] Care Team Providers Care Arc Welder Apprentice Name Role Phone Laurie Wiggins MD Primary Care Provider +1- [phone] Encounter Details Date Type Department Care Team (Latest Contact Info) Description 06/25/2010 7:36 AM EDT - 06/25/2010 11:00 AM EDT Hospital Encounter [place] [address] Boo Browne MD [facility] [address] [place] [address] Discharge Disposition: Home Social History Tobacco Use [...] 06/25/201008/2011 Milk Thistle 500 mg Cap 06/25/201007/11 [place]'s Wort 300 mg Cap 06/25/2010 07/29/2010 spironolactone [...] 8:15 AM EST Office Visit Dermatology at [place] [address] [place] [address] Jin Nunez MD [address], [place] [address] documented as of this encounter Visit Diagnoses Not on filedocumented in this encounter Care Teams Arc Welder Apprentice Relationship Specialty Start Date End Date Laurie Wiggins MD [address] [place] [address] PCP - General 03/03/10 02/12/19 documented as of this encounter
--- OUTSIDE RECORDS SUMMARY | 2024-01-17 15:34 | XMS_ITS | Encounter Summary ---
Author Organization [facility] Address [facility] [place] [address] Care Team Providers Care Sign Fabricator Name Role Phone Laurie Wiggins MD Primary Care Provider +1- [phone] Encounter Details Date Type Department Care Team (Latest Contact Info) Description 12/02/2012 8:25 PM EDT - 12/02/2012 10:03 PM EDT Hospital Encounter [place] [address] Man Juárez MD [facility] [place] [address] Discharge Disposition: Admitted to [facility] Social History Tobacco Use Types Packs/Day Years [...] EST Office Visit Dermatology at [place] [address] [place] [address] Jin Nunez MD [address], [place] [address] documented as of this encounter Visit Diagnoses Not on filedocumented in this encounter Care Teams Sign Fabricator Relationship Specialty Start Date End Date Laurie Wiggins MD [address] [place] [address] PCP - General 03/03/10 02/12/19 documented as of this encounter
--- OUTSIDE RECORDS SUMMARY | 2024-01-17 15:34 | XMS_ITS | Encounter Summary ---
[place] [address] Care Team Providers Care Orthopedic Assistant Name Role Phone Laurie Wiggins MD Primary Care Provider +1- [phone] Encounter Details Date Type Department Care Team (Late st Contact Info) Description 01/29/2011 9:00 AM EDT - 01/29/2011 11:59 PM EDT Hospital Encounter [place] [address] Cirrhosis Social History Tobacco Use Types Packs/Day [...] 8:15 AM EST Office Visit Dermatology at [place] [address] [place] [address] Jin Nunez MD [address], [place] [address] documented as of this encounter Procedures Procedure [...] 01/29/2011 10:17 am) Patient Info ID: ? [id number] ? : [birth year] (55 yrs) Name: ? ALMA Denise CARBALLO ? Visit Date: 01/29/2011 09:56 am Performed By Performed By: ?MANDEEP Raza ??Janie Associate: ? Elle LESTER, Leonardo Junior Attending: ? Nicolasa LESTER, Dahlia Junior Referred By: ? AKIKO Morris APRN Accession#: ?[id number] Service(s) Provided [facility] - Abdominal Complete Survey - [id number] ? [id number] Indications Cirrhosis, screen for HCC ----- Liver [...] Final 01/29/2011 10:17 am) Patient Info ID: [id number] : [birth year] (55 yrs) Name: ALMA CARBALLO Visit Date: 01/29/2011 09:56 am Performed By Performed By: MANDEEP Raza Associate: Elle LESTER, Leonardo Junior Attending: Dahlia Baldwin MD Referred By: AKIKO Morris APRN Service(s) Provided [facility] - Abdominal Complete Survey - [phone] Indications Cirrhosis, screen for HCC ----- Liver [...] alcohol documented in this encounter Care Teams Orthopedic Assistant Relationship Specialty Start Date End Date Laurie Wiggins MD [address] [place] [address] PCP - General 03/03/10 02/12/19 documented as of this encounter
--- OUTSIDE RECORDS SUMMARY | 2024-01-17 15:34 | XMS_ITS | Encounter Summary ---
Author Organization [facility] [place] [address] Care Team Providers Care Aging Department Supervisor Name Role Phone Laurie Wiggins MD Primary Care Provider +1- [phone] Encounter Details Date Type Department Care Team (Latest Contact Info) Description 09/27/2012 8:16 AM EDT - 09/27/2012 11:59 PM EDT [place] [address] Gustabo Garza MD [facility] [place] [address] Cirrhosis Discharge Disposition: Home Social History Tobacco [...] 8:15 AM EST Office Visit Dermatology at [place] [address] [place] [address] Jin Nunez MD [address], [place] [address] Scheduled Orders Name Type Priority Associated Diagnoses [...] % 63.0 34.0 - 71.0 % [facility] Neutrophil Absolute 2.95 1.50 - 6.30 x10(3)/mcL [...] 12-20-2011. Reference: Immulite 2000 AFP package insert ([id number], 2009-01-02) Blood specimen (specimen) 09/27/2012 8:29 AM EDT 09/27/2012 12:28 PM EDT Narrative Resulting Agency Comment Spec In Lab Gustabo Garza MD CHEMISTRY ORDERABLE S Performing Organization Address [facility] Co de Phone Number THEO POOLENNIUM * Prothrombin Time (09/27/2012 8:29 AM EDT) Prothrombin Time 14.1 12.0 - 15.0 sec CERNER MILLENNIUM Comment: [facility] Transfusion Committee Guidelines: INR less than [...] MD HEMATOLOGY ORDERABL ES Performing Organization Address [facility] de Phone Number CERSIDDHARTH POOLENNIUM * (ABNORMAL) Comprehensive metabolic panel (non-fasting) (09/27/2012 8:29 AM EDT) Glucose 269(H) 60 - 199 mg/dL CERNER MILLENNIUM Comment:Diabetes: >=200 mg/d L plus symptoms Blood Urea Nitrogen 25(H) 10 - 20 mg/dL CERNER MILLENNIUM Creatinine 1.02 0.80 - 1.50 mg/dL CERNER MILLENNIUM Comment: Please note that the pediatric reference intervals supplied above were not validated at [facility]. Results from pediatric patients should be interpreted [...] alcohol documented in this encounter Care Teams Aging Department Supervisor Relationship Specialty Start Date End Date Laurie Wiggins MD [address] [place] [address] PCP - General 03/03/10 02/12/19 documented as of this encounter
--- OUTSIDE RECORDS SUMMARY | 2024-01-17 15:34 | XMS_ITS | Encounter Summary ---
[place] [address] Care Team Providers Care Sales Office Manager Name Role Phone Laurie Wiggins MD Primary Care Provider +1- [phone] Encounter Details Date Type Department Care Team (Late st Contact Info) Description 08/24/2010 Orders [place] [address] Paty Pedraza COMMUNITY DIRECTOR [facility] [place] [address] Cirrhosis (Primary Dx) Social History Tobacco Use [...] 8:15 AM EST Office Visit Dermatology at [place] [address] [place] [address] Jin Nunez MD [address], [place] [address] documented as of this encounter Results * US abdomen complete (01/29/2011 10:06 AM EDT) Anatomical Region Laterality Modality Abdomen, Vascular Ultrasound 01/29/2011 10:0 6 AM EDT Narrative 01/29/2011 10:17 AM EDT ?Abdominal Report ? (Signed Final 01/29/2011 10:17 am) Patient Info ID: ? [id number] ? : [birth year] (55 yrs) Name: ? ALMA CARBALLO ? Visit Date: 01/29/2011 09:56 am Performed By Performed By: ?MANDEEP Raza ??Janie Associate: ? Elle LESTER, Leonardo Junior Attending: ? Nicolasa LESTER, Dahlia Junior Referred By: ? AKIKO Morris APRN Accession#: ?[id number] Service(s) Provided [facility] - Abdominal Complete Survey - [id number] ? [id number] Indications Cirrhosis, screen for HCC ----- Liver [...] Final 01/29/2011 10:17 am) Patient Info ID: [id number] : [birth year] (55 yrs) Name: ALMA CARBALLO Visit Date: 01/29/2011 09:56 am Performed By Performed By: MANDEEP Raza Associate: Elle LESTER, Leonardo Junior Attending: Dahlia Baldwin MD Referred By: AKIKO Morris APRN Service(s) Provided [facility] - Abdominal Complete Survey - [phone] Indications Cirrhosis, screen for HCC ----- Liver [...] alcohol documented in this encounter Care Teams Sales Office Manager Relationship Specialty Start Date End Date Laurie Wiggins MD [address] [place] [address] PCP - General 03/03/10 02/12/19 documented as of this encounter
--- OUTSIDE RECORDS SUMMARY | 2024-01-17 15:34 | XMS_ITS | Encounter Summary ---
[place] [address] Care Team Providers Care Studio Manager Name Role Phone Laurie Wiggins MD Primary Care Provider +1- [phone] Encounter Details Date Type Department Care Team (Late st Contact Info) Description 03/18/2010 7:30 AM EST Office [place] [address] Roland Patterson MD [facility] [address] [place] [address] Discharge Disposition: Home Social History Tobacco Use [...] 8:15 AM EST Office Visit Dermatology at [place] [address] [place] [address] Jin Nunez MD [address], [place] [address] documented as of this encounter Visit Diagnoses Not on filedocumented in this encounter Care Teams Studio Manager Relationship Specialty Start Date End Date Laurie Wiggins MD [address] [place] [address] PCP - General 03/03/10 02/12/19 documented as of this encounter
--- OUTSIDE RECORDS SUMMARY | 2024-01-17 15:34 | XMS_ITS | Encounter Summary ---
[place] [address] Care Team Providers Care Casting Tester Name Role Phone Laurie Wiggins MD Primary Care Provider +1- [phone] Reason for Visit * Reason Comments Cirrhosis Encounter Details Date Type Department Care Team (Late st Contact Info) Description 08/10/2012 1:00 PM EDT [place] [address] Paty Pedraza APRN [facility] [place] [address] Cirrhosis of liver (Primary Dx); Chronic hepatitis [...] underwent serial variceal band ligation ( at [facility])and was banded in December 2007 (6 bands), January 2008 ( 4 bands) and April of 2008 (3 bands). 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 I have explained that as an DRIVER LICENSE TECHNICIAN my opinion is unlikely to be enough [...] 8:15 AM EST Office Visit Dermatology at [place] [address] [place] [address] Jin Nunez MD [address], [place] [address] documented as of this encounter Visit Diagnoses Diagnosis Cirrhosis of liver- Primary Cirrhosis of liver without mention of alcohol Chronic hepatitis C Chronic hepatitis C without mention of hepatic coma documented in this encounter Care Teams Casting Tester Relationship Specialty Start Date End Date Laurie Wiggins MD [address] [place] [address] PCP - General 03/03/10 02/12/19 documented as of this encounter
--- OUTSIDE RECORDS SUMMARY | 2024-01-17 15:34 | XMS_ITS | Encounter Summary ---
[place] [address] Care Team Providers Care Pressure Tester Name Role Phone George Lou Primary Care Provider [phone] Encounter Details Date Type Department Care Team (Late st Contact Info) Description 11/30/2007 [place] [address] Shaun Zavala MD GASTROENTEROLOGY Social History Tobacco [...] 8:15 AM EST Office Visit Dermatology at [place] [address] [place] [address] Jin Nunez MD [address], [place] [address] documented as of this encounter Procedures Procedure Name Priority Date/Time Associated Diagnosis Comments SURGICAL PATHOLOGY REPORT Routine 11/30/2007 3:08 PM EDT documented in this encounter Results * Surgical Pathology Report (11/30/2007 3:08 PM EDT) Surgical Pathology Report [id number] ? Location: 4T The signing pathologist has [...] report in rendering the final pathologic diagnosis. [facility] 11/30/2007 3:08 PM EDT Shaun Zavala MD PATHOLOGY/CYTOLOGY ORDERABLES [facility] documented in this encounter Visit Diagnoses Not on filedocumented in this encounter Care Teams Pressure Tester Relationship Specialty Start Date End Date George Lou PA [address] [place] [address] PCP - General Internal Medicine 11/12/22 documented as of this encounter
--- OUTSIDE RECORDS SUMMARY | 2024-01-17 15:34 | XMS_ITS | Encounter Summary ---
Author [place] [address] Care Team Providers Care Nail Technician Name Role Phone Laurie Wiggins MD Primary Care Provider +1- [phone] Reason for Visit * Reason Comments Follow-up Encounter Details Date Type Department Care Team (Late st Contact Info) Description 06/28/2011 1:30 PM EDT Follow-[place] [address] Paty Pedraza APRN [facility] [place] [address] Cirrhosis (Primary Dx) Discharge Disposition: Home Social [...] underwent [place]iceal band [place] ( [place] [facility]and was banded in December 2007 (6 bands), January 2008 ( 4 bands) and April of 2008 (3 bands). 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
--- OUTSIDE RECORDS SUMMARY | 2024-01-17 15:34 | XMS_ITS | Encounter Summary ---
[place] [address] Care Team Providers Care [place] Guide Name Role Phone Laurie Wiggins MD Primary Care Provider +1- [phone] Encounter Details Date Type Department Care Team (Late st Contact Info) Description 10/02/2012 Telephone [place] [address] Jacinta Nunes RN Social History Tobacco Use [...] iron supplementation. He uses [facility] in [place]. Lab results from 09/27 are posted in [facility]. Patient is also inquiring if he will need another procedure to address GI bleeding. Will forward to Sherwin Pedraza NP documented in this encounter Plan of Treatment Upcoming Encounters Date Type Department Care Team (Late st Contact Info) Description 2024 8:15 AM EST Office Visit Dermatology at [address] [phone] Jin Nunez MD [address], [place] [address] documented as of this encounter Visit Diagnoses Not on filedocumented in this encounter Care Teams [place] Guide Relationship Specialty Start Date End Date Laurie Wiggins MD [address] [place] [address] PCP - General 03/03/10 02/12/19 documented as of this encounter
--- OUTSIDE RECORDS SUMMARY | 2024-01-17 15:34 | XMS_ITS | Encounter Summary ---
[place] [address] Care Team Providers Care Cloth Covered Helmet Puller Name Role Phone Laurie Wiggins MD Primary Care Provider +1- [phone] Encounter Details Date Type Department Care Team (Late st Contact Info) Description 04/01/2010 2:30 PM EST Follow-[place] [address] Paty Pedraza APRN [facility] [place] [address] Discharge Disposition: Home Social History Tobacco Use [...] EST Office Visit Dermatology at [place] [address] [place] [address] Jin Nunez MD [address], [place] [address] documented as of this encounter Visit Diagnoses Not on filedocumented in this encounter Care Teams Cloth Covered Helmet Puller Relationship Specialty Start Date End Date Laurie Wiggins MD [address] [place] [address] PCP - General 03/03/10 02/12/19 documented as of this encounter
--- OUTSIDE RECORDS SUMMARY | 2024-01-17 15:34 | XMS_ITS | Encounter Summary ---
[place] [address] Care Team Providers Care Manufacturer Agent Name Role Phone Unavailable Primary Care Provider Unavailabl e Encounter Details Date Type Department Care Team (Late st Contact Info) Description 02/16/2010 9:30 AM EST Procedure visit [place] [address] Brody Beebe MD [facility] [place] [address] Social History Tobacco Use Types Packs/Day Years [...] 8:15 AM EST Office Visit Dermatology at [place] [address] [place] [address] Jin Nunez MD [address], [place] [address] documented as of this encounter Visit Diagnoses Not on filedocumented in this encounter
--- OUTSIDE RECORDS SUMMARY | 2024-01-17 15:34 | XMS_ITS | Encounter Summary ---
[place] [address] Care Team Providers Care Hand Bookbinder Name Role Phone Laurie Wiggins MD Primary Care Provider +1- [phone] Encounter Details Date Type Department Care Team (Latest Contact Info) Description 09/19/2012 2:19 PM EDT - 09/19/2012 5:25 PM EDT Hospital Encounter [place] [address] Berna Shabazz MD [facility] [address] [place] [address] Gustabo Garza MD [facility] [address] [place] [address] Boo Browne MD [facility] [place] [address] Discharge Disposition: Home Social History Tobacco Use [...] occurs, please contact your MD/ Please call [phone] before 5pm with problems, questions or concerns. After 5pm call [phone] and ask to speak with the line lead e commerce solution architect. Discharge instructions reviewed with patient who expresses [...] Browne MD - 09/19/2012 4:28 PM EDT [facility] Operative Note Patient Name: Alonzo Urbina : [id number] MR#: [id number] Case Date: 09/19/2012 Surgeon: Surgeon(s) and Role: [...] 8:15 AM EST Office Visit Dermatology at [place] [address] [place] [address] Jin Nunez MD [address], [place] [address] documented as of this encounter Procedures Procedure Name Priority Date/Time Associated Diagnosis Comments EGD, UPPER GI ENDOSCOPY (WRVU 2.09) 09/19/2012 4:17 PM EDT Cirrhosis of liver UPPER GI ENDOSCOPY Routine 09/19/2012 3: 51 PM EDT documented in this encounter Results * UPPER GI ENDOSCOPY (09/19/2012 3:51 PM EDT) UPPER GI ENDOSCOPY [facility] Endoscopy Patient Name: Alonzo Urbina ? Procedure Date: 09/19/2012 3:51 PM ? Date of : 1955 ? Age: 57 ? Order #: [id number] ? Procedure: ? Upper GI endoscopy Indications: ? Melena, Follow-up of esophageal ? varices Providers: ? Boo Browne MD, Luis Fernando Caban ? , RN, Joanne Wu RN Referring : ?Laurie Wiggins MD, Paty Rivera ? Ray, NOVELTIES SALES REPRESENTATIVE Medicines: ? Midazolam 4 mg IV, Fentanyl [...] time) documented in this encounter Care Teams Hand Bookbinder Relationship Specialty Start Date End Date Laurie Wiggins MD [address] [place] [address] PCP - General 03/03/10 02/12/19 documented as of this encounter
--- OUTSIDE RECORDS SUMMARY | 2024-01-17 15:34 | XMS_ITS | Encounter Summary ---
[place] [address] Care Team Providers Care Transportation Superintendent Name Role Phone Laurie Wiggins MD Primary Care Provider +1- [phone] Encounter Details Date Type Department Care Team (Late st Contact Info) Description 09/15/2012 Orders [place] [address] Paty Pedraza, ANGLE SHEAR OPERATOR [facility] [place] [address] Cirrhosis of liver (Primary Dx) Social History [...] EST Office Visit Dermatology at [place] [address] [place] [address] Jin Nunez MD [address], [place] [address] documented as of this encounter Procedures Procedure Name Priority Date/Time Associated Diagnosis Comments UPPER GI ENDOSCOPY Routine 12/03/2012 12 :07 PM EDT Cirrhosis of liver documented in this encounter Results * UPPER GI ENDOSCOPY (12/03/2012 12:07 PM EDT) Pathologist [facility] UPPER GI ENDOSCOPY [facility] Endoscopy Patient Name: Alonzo Urbina ? Procedure Date: 12/03/2012 12:07 PM ? Date of : 1955 ? Age: 57 ? Order #: [id number] ? Procedure: ? Upper GI endoscopy Indications: ? Melena Providers: ? Gustabo Garza MD, Ana ? MD Raman, Neyda Ames RN, ? Bernie Martinez, Registered Nurse Maternal Child Referring MD: ? Medicines: ? Fentanyl 150 [...] alcohol documented in this encounter Care Teams Transportation Superintendent Relationship Specialty Start Date End Date Laurie Wiggins MD [address] [place] [address] PCP - General 03/03/10 02/12/19 documented as of this encounter
--- OUTSIDE RECORDS SUMMARY | 2024-01-17 15:34 | XMS_ITS | Encounter Summary ---
[place] [address] Care Team Providers Care Corporate Associate Name Role Phone Laurie Wiggins MD Primary Care Provider +1- [phone] Encounter Details Date Type Department Care Team (Late st Contact Info) Description 10/10/2012 Telephone [place] [address] Jacinta Nunes, RN Social History Tobacco Use [...] 8:15 AM EST Office Visit Dermatology at [place] [address] [place] [address] Jin Nunez MD [address] [facility] [address], [place] [address] documented as of this encounter Visit Diagnoses Not on filedocumented in this encounter Care Teams Corporate Associate Relationship Specialty Start Date End Date Laurie Wiggins MD [address] [place] [address] PCP - General 03/03/10 02/12/19 documented as of this encounter
--- OUTSIDE RECORDS SUMMARY | 2024-01-17 15:34 | XMS_ITS | Encounter Summary ---
[place] [address] Care Team Providers Care Severity Of Illness Coordinator Name Role Phone Laurie Wiggins MD Primary Care Provider +1- [phone] Reason for Visit * Reason Comments Follow-up Encounter Details Date Type Department Care Team (Late st Contact Info) Description 01/29/2011 11:00 AM EDT [place] [address] CLINIC, Paty Verdugo APRN [facility] [place] [address] Cirrhosis (Primary Dx) Discharge Disposition: Home Social [...] this encounter Progress Notes * Paty Pedraza, COAL EQUIPMENT OPERATOR - 01/29/2011 10:27 AM EDT Subjective: Patient [...] underwent [place]iceal band [place] ( [place] [facility]and was banded in December 2007 (6 bands), January 2008 ( 4 bands) and April of 2008 (3 bands). 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 [...] 8:15 AM EST Office Visit Dermatology at [place] [address] [place] [address] Jin Nunez MD [address], [address] [place] [address] [phone] (work) documented as of this encounter Procedures [...] MD HEMATOLOGY ORDERABL ES Performing Organization Address [place] Co de Phone Number THEO POOLENNIUM * AFP tumor marker (01/29/2011 12:10 PM EDT) Alpha Fetoprotein 6 <=19 ng/mL CERNER MILLENNIUM Blood specimen (specimen) 01/29/2011 12:10 PM EDT 01/29/2011 2:40 PM EDT Gustabo Garza MD CHEMISTRY ORDERABLE S Performing Organization Address [place] de Phone Number [facility] CORINEENNIUM * (ABNORMAL) Prothrombin Time (01/29/2011 12:10 PM EDT) Prothrombin Time 14.8(H) 12.3 - 14.7 sec CERNER MILLENNIUM Comment: [facility] Transfusion Committee Guidelines: INR [...] MD HEMATOLOGY ORDERABL ES Performing Organization Address [place] Co de Phone Number THEO POOLENNIUM * (ABNORMAL) Comprehensive metabolic panel (non-fasting) (01/29/2011 12:10 PM EDT) Glucose 163 60 - 199 mg/dL [facility] ZoomphENNIUM Comment:Diabetes: >=200 mg/d L plus symptoms Blood [...] EDT Gustabo Garza MD HEMATOLOGY ORDERABL ES [facility] documented in this encounter Visit Diagnoses Diagnosis Cirrhosis- Primary Cirrhosis of liver without mention of alcohol documented in this encounter Care Teams Severity Of Illness Coordinator Relationship Specialty Start Date End Date Laurie Wiggins MD [address] [place] [address] PCP - General 03/03/10 02/12/19 documented as of this encounter
--- OUTSIDE RECORDS SUMMARY | 2024-01-17 15:34 | XMS_ITS | Encounter Summary ---
Author Organization formerly [place] [address] Care Team Providers Care Coffee Blender Name Role Phone George Lou Primary Care Provider [phone] Encounter Details Date Type Department Care Team (Late st Contact Info) Description 02/15/2010 Orders [place] [address] Ernesto Cardona MD [facility] [place] [address] Social History Tobacco Use Types Packs/Day Years [...] EST Office Visit Dermatology at [place] [address] [place] [address] Jin Nunez MD [address], [place] [address] documented as of this encounter Procedures Procedure Name Priority Date/Time Associated Diagnosis Comments SURGICAL PATHOLOGY REPORT Routine 02/15/2010 7:33 AM EST documented in this encounter Results * Surgical Pathology Report (02/15/2010 7:33 AM EST) Surgical Pathology Report [id number] ? Location: 1EST; 0134; A The signing [...] on filedocumented in this encounter Care Teams Coffee Blender Relationship Specialty Start Date End Date George Lou PA [address] [place] [address] PCP - General Internal Medicine 11/12/22 documented as of this encounter
--- OUTSIDE RECORDS SUMMARY | 2024-01-17 15:34 | XMS_ITS | Encounter Summary ---
[place] [address] Care Team Providers Care Security And Compliance Project Manager Name Role Phone Laurie Wiggins MD Primary Care Provider +1- [phone] Reason for Visit * Reason Comments Follow-up Encounter Details Date Type Department Care Team (Late st Contact Info) Description 09/27/2012 10:30 AM EDT [place] [address] Paty Pedraza APRN [facility] GASTROENTEROLOG[place] [address] Anemia (Primary Dx) Discharge Disposition: Home Social [...] blood. serial variceal band ligation ( at [facility]) and was banded in December [...] 8:15 AM EST Office Visit Dermatology at [place] [address] [facility] [place] [address] Jin Nunez MD [address] [facility], [place] [address] documented as of this encounter Procedures Procedure Name Priority Date/Time Associated Diagnosis Comments IRON AND TIBC Routine 09/27/2012 11:41 AM EDT Anemia FERRITIN Routine 09/27/2012 11:41 AM EDT Anemia documented in this encounter Results * Ferritin (09/27/2012 11:41 AM EDT) Ferritin 36 30 - 400 ng/mL CERNER MILLENNIUM Comment: Pediatric reference ranges not verified at [facility], interpret with caution. Reference ranges [...] unspecified documented in this encounter Care Teams Security And Compliance Project Manager Relationship Specialty Start Date End Date Laurie Wiggins MD [address] [place] [address] PCP - General 03/03/10 02/12/19 documented as of this encounter
--- OUTSIDE RECORDS SUMMARY | 2024-01-17 15:35 | XMS_ITS | Encounter Summary ---
Author Organization [facility] Address [address] [place] [address] Care Team Providers Care Patternmaker Bench Name Role Phone CarmineGeorge NORMA Primary Care Provider [phone] [phone] Reason for Referral * Radiology Services (Routine/Next Available) - Receiving Office to Obtain Authorization Specialty Diagnoses / Procedures Referred By Contac t Referred To Contact Procedures TUMOR BOARD RADIOLOGY CONSULT LIVER TUMOR BOARD RADIOLOGY CONSULT NON BREAST Filipe Sarmiento MD [address] [place] [phone] Referral ID Status Reason Start Date Expiration Date Visits Requested Visits Authorized [id number] Receiving Office to Obtain Authorization 12/21/2023 1 1 Reason for Visit * Radiology Services (Routine/Next Available) - Receiving Office to Obtain Authorization Specialty Diagnoses / Procedures Referred By Contac t Referred To Contact Procedures TUMOR BOARD RADIOLOGY CONSULT LIVER TUMOR BOARD RADIOLOGY CONSULT NON BREAST Filipe Sarmiento MD [address] [place] [phone] Referral ID Status Reason Start Date Expiration Date Visits Requested Visits Authorized [id number] Receiving Office to Obtain Authorization 12/21/2023 1 1 Encounter Details Date Type Department Care Team (Latest Contact Info) Description 12/22/2023 7:33 EDT - 12/22/2023 23:59 EDT Hospital Encounter [facility] Radiology - Main [address] [address] Discharge Disposition: Home or Self Care Social [...] times daily. Obtaining through Patient Assistance Program ([employer]), approved on 05/31/19 x1 year. Phone number for PAP: [phone] semaglutide (OZEMPIC) subcutaneous pen Inject into the [...] Visit [facility] General Surgery - [address] [address] Bon Gutierrez MD [address] [facility] [place] [address] 09/10/2024 10:00 EDT Appointment Shaina Mejia [address] [place] [phone] Pending Results Name Type Priority Associated Diagnoses Date /Time TUMOR BOARD RADIOLOGY CONSULT LIVER Imaging Routine 12/22/2023 7:33 EDT Scheduled Orders Name Type Priority Associated Diagnoses Orde r Schedule TUMOR BOARD RADIOLOGY CONSULT LIVER Imaging Routine [address] [place] 12/22/2023 until 12/22/2023 documented as of this encounter Visit Diagnoses Not on filedocumented in this encounter Care Teams Patternmaker Bench Relationship Specialty Start Date End Date George Lou RPA [address] [place] [address] PCP - General Family Medicine - Primary Care 09/21/22 documented as of this encounter
--- OUTSIDE RECORDS SUMMARY | 2024-01-17 15:35 | XMS_ITS | Encounter Summary ---
Author Organization [facility] Address [address] [place] [address] Care Team Providers Care Varnish Melter Helper Name Role Phone Katia Blanco IMANI Primary Care Provider [phone] Reason for Visit * Reason Onset Date Comments Appointment Related 03/18/2021 Encounter Details Date Type Department Care Team (Late st Contact Info) Description 03/18/[address] [facility] Interventional Radiology - [address] [address] Guicho Rosales MD [address] [place] [address] 1 [place] [address] Appointment Related Social History Tobacco [...] Description 01/23/2024 10:[address] [facility] General Surgery - [address] [address] Bon Gutierrez MD [address] [facility] [place] [address] 09/10/2024 10:00 EDT Appointment Shaina Mejia 0 [place] [address] documented as of this encounter Visit Diagnoses Not on filedocumented in this encounter Care Teams Varnish Melter Helper Relationship Specialty Start Date End Date [place] [address] PCP - General 03/26/19 09/20/22 documented as of this encounter
--- OUTSIDE RECORDS SUMMARY | 2024-01-17 15:35 | XMS_ITS | Clinical Summary ---
Author Organization [facility] Address [address] [place] [address] Care Team Providers Care Ultrasound Technologist Sonographer Name Role Phone George Lou NORMA Primary Care Provider [phone] [phone] Allergies Active Allergy Reactions Criticality Noted Date [...] times daily. Obtaining through Patient Assistance Program ([email or web address]), approved on 05/31/19 x1 year. 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 ([facility]) 01/08/2014 Overview: This diagnosis was automatically updated [...] Encounters Date Type Department Care Team Description 12/23/2023 Orders Only [facility] Interventional Radiology - [address] [address] Echo Doe, RN Liver lesion (Primary Dx) 12/23/2023 Orders Only [facility] Interventional Radiology [address] [address] Echo Doe, RN Alcoholic cirrhosis, unspecified whether ascites present (HCC-CMS) (Primary Dx) 12/22/2023 7:33 EDT - 12/22/2023 23:59 EDT Hospital Encounter [facility] Radiology - [address] [address] Discharge Disposition: Home or Self Care 12/21/2023 16:30 EDT Tumor Board [facility] Hematology & Oncology - [address] [address] Hepatocellular carcinoma (HCC-CMS) (Primary Dx) 12/21/2023 Orders Only [facility] Hematology & Oncology - [address] [address] Shantal Albarran RN 11/25/2023 15:17 EDT - 11/25/2023 23:59 EDT Hospital Encounter [address] [address] Discharge Disposition: Home or Self Care 11/25/2023 Orders Only [facility] Interventional [address] [address] Echo Doe, RN Alcoholic cirrhosis of liver without ascites (HCC-CMS) (Primary Dx) 11/17/2023 15:07 EDT - 11/17/2023 23:59 EDT Hospital Encounter [address] [facility] [address] [place], [place] [id number] Cirrhosis (HCC-CMS) Discharge Disposition: Home or Self Care 11/17/2023 11:03 EDT - 11/17/2023 15:06 EDT Hospital Encounter [facility] Radiology [address] [id number] Cirrhosis (HCC-CMS) Discharge Disposition: Home or Self Care 11/07/2023 Telephone [facility] Interventional [address] [address]56[address] Guicho Rosales MD Appointment Related 10/17/2023 Orders Only [address] [id number] Joe [place] MD from Last 3 Months Immunizations Name Administration [...] Info) Description 01/23/2024 10:00 EDT Office Visit [facility] General Surgery - [address] [id number] Bon Gutierrez MD 111 [facility], [facility], Level 5 [place] [phone] 09/10/2024 10:00 EDT Appointment Shaina Bergeron Ultrasound [address] [place] [address] Health Maintenance Due Date Last Done Comments RSV Immunization ( o r 60+ Years) (1 - 1-dose 60+ series) 2013 Fall Risk Screening 2018 Advance Directive Review 09/16/2023 COVID-19 Vaccine (2023-2 5 season) 2023 Hepatitis C Screen Completed 06/28/2018, 1 04/19/2014, 11/21/2014, Additional history exists Medical Devices Implanted Type Area Boiling House Hand Device Identifier Shelf Expiration Date Model / [...] DUPLEX Routine 11/17/2023 14:23 EDT Cirrhosis (HCC-CMS) HCV RNA DETECT QUANT Routine 06/28/2018 [...] performed for the imaging exams listed above. [id number] Resulting Agency Comment [id number] Procedure Note Cole Leblanc MD - 12/08/2023 TUMOR BOARD IMAGING REVIEW Tumor board: Liver tumor board Date of tumor board: 12/07/2023 Indication: Liver lesions. Imaging studies reviewed: Abdominal MRI with and without contrast 11/17/2023 Comments: A focused interpretation for the purpose of tumor board/MDC discussion wasperformed for the imaging exams listed above. [id number] Filipe Sarmiento MD IMG CT ORDERABLES * MR ABDOMEN W WO CONTRAST (11/17/2023 18:13 EDT) Anatomical Region Laterality Modality Body, Abdomen Magnetic Resonan ce 11/18/2023 10:3 7 EDT Addenda Addendum by Blake Fuentes MD on 11/25/2023 9:35 EDT Addendum: MRI of the abdomen with and without IV contrast was performed. [id number] Impressions 11/18/2023 10:37 EDT Lesion #1: Segment [...] ongoing routine MRI surveillance for hepatocellular carcinoma. [id number] Narrative 11/18/2023 10:37 EDT MR ABDOMEN W [...] Localizer: No additional findings. Resulting Agency Comment [id number] Procedure Note Blake Fuentes MD - 11/18/2023 [...] is ongoing routine MRIsurveillance for hepatocellular carcinoma. [id number] Norbert Bennett PA-C IMG MRI ORDERABLES * [...] malfunction. AJR Am J Roentgenol. 1996. May;168(2):467-72. [id number] Narrative 11/19/2023 13:29 EDT US ABDOMEN LIMITED WITH COMPLETE DUPLEX ??11/17/2023 1:41 PM SIGNS AND SYMPTOMS/COMMENTS: Cirrhosis COMPARISONS: Ultrasound abdomen from 10/10/2023 GRAYSCALE: TECHNIQUE: Grayscale ultrasound images of the liver were obtained. INDICATION FOR GRAYSCALE: Evaluate for structural abnormality Resulting Agency Comment [id number] Procedure Note Madelaine Francois MD - 11/19/2023 [...] shunt malfunction. AJR Am J Roentgenol. 1996.May;168(2):467-72. [id number] Norbert Bennett PA-C [facility] US ORDERABLES * HCV RNA DETECT QUANT (06/28/2018 6:56 EDT) HCV RNA Detect Quant Undetected Undetected IU/mL 06/29/2018 16:21 EDT [facility] Comment: Reference Range: ??Undetected The quantification range of this assay is 15 IU/mL to 100,000,000 IU/mL. Testing was performed by the Mili Ampliprep/Mili TaqMan HCV v2.0 ([employer] Blood specimen (specimen) BLOOD SPECIMEN / Unknown 06/28/2018 6:56 EDT 06/28/2018 7:13 EDT Zac Whitaker MD CHEMISTRY & BLOOD G ORDERABLES [facility] [address] [place] [address] from Last 3 Months or Most Recently Relevant to Health Maintenance [address] [place] [address] Alonzo Urbina Personal/Famil y Self [address] [place] [address] [address] [place] [address] Alonzo Urbina Personal/Famil y Self [address] [place] [address] [address] [place] [address] Alonzo Urbina Personal/Famil y Self [address] [place] [address] [address] [place] [address] Alonzo Urbina Personal/Famil y Self [address] [place] [address] [address] [place] [address] Alonzo Urbina Personal/Famil y Self [address] [place] [address] 1 [place] [address] Alonzo Urbina Personal/Famil y Self [address] [place] [address] [address] [place] [address] Alonzo Urbina Personal/Famil y Self [address] [place] [address] [place] [address] Advance Directives For more information, please contact: [phone] Documents on File Type Date Recorded Patient Silk Screen Layout Drafter Expl anation COLST/MOLST 09/15/2018 12:25 2013-03-26 DN [...] in the Discussion? 1. Patient Care Teams Ultrasound Technologist Sonographer Relationship Specialty Start Date End Date George Lou RPA [address] [place] [address] PCP - General Family Medicine - Primary Care 09/21/22
--- OUTSIDE RECORDS SUMMARY | 2024-01-17 15:35 | XMS_ITS | Encounter Summary ---
Author Organization [facility] Address [address] [place] [address] Care Team Providers Care Tallier Name Role Phone George Lou NORMA Primary Care Provider [phone] Reason for Referral * Radiology Services (Routine/Next Available) - Authorized Specialty Diagnoses / Procedures Referred By Contac t Referred To Contact Radiology Diagnoses Cirrhosis (HCC-CMS) Procedures MR ABDOMEN W WO CONTRAST Norbert Bennett PA-C [address] [place] [phone] [facility] Referral ID Status Reason Start Date Expiration Date V isits Requested Visits Authorized [id number] Authorized 09/21/2023 12/20/2023 1 1 Reason for Visit * Radiology Services (Routine/Next Available) - Authorized Specialty Diagnoses / Procedures Referred By Contac t Referred To Contact Radiology Diagnoses Cirrhosis (HCC-CMS) Procedures MR ABDOMEN W WO CONTRAST Norbert Bennett PA-C [address] [address] [facility] Referral ID Status Reason Start Date Expiration Date V isits Requested Visits Authorized [id number] Authorized 09/21/2023 12/20/2023 1 1 Encounter Details Date Type Department Care Team (Latest Contact Info) Description 11/17/2023 15:07 EDT - 11/17/2023 23:59 EDT Hospital Encounter [facility] [address] [place] [address] Cirrhosis ([facility]) Discharge Disposition: Home or Self Care [...] times daily. Obtaining through Patient Assistance Program ([employer]), approved on 05/31/19 x1 year. Phone number for PAP: [phone] semaglutide (OZEMPIC) subcutaneous pen Inject into the [...] Info) Description 01/23/2024 10:00 EDT Office Visit [facility] General Surgery - [facility] [address] [place], [place] [phone] Bon Gutierrez MD 111 [facility], [facility], Level [address] [place] [address] 09/10/2024 10:00 EDT Appointment Shaina Bergeron Ultrasound [address] [place] [address] documented as of this encounter [...] with and without IV contrast was performed. [id number] Impressions 11/18/2023 10:37 EDT Lesion #1: Segment [...] ongoing routine MRI surveillance for hepatocellular carcinoma. [id number] Narrative 11/18/2023 10:37 EDT MR ABDOMEN W [...] Localizer: No additional findings. Resulting Agency Comment [id number] Procedure Note Blake Fuentes MD - 11/18/2023 [...] is ongoing routine MRIsurveillance for hepatocellular carcinoma. [id number] Norbert Bennett PA-C [facility] [place] ORDERABLES documented in this encounter Visit [...] 11/2023 documented in this encounter Care Teams Tallier Relationship Specialty Start Date End Date George Lou RPA [address] [place] [address] PCP - General Family Medicine - Primary Care 09/21/22 documented as of this encounter
--- OUTSIDE RECORDS SUMMARY | 2024-01-17 15:35 | XMS_ITS | Encounter Summary ---
Author Organization [facility] Address [address] [place] [address] Care Team Providers Care Analysis Consultant Name Role Phone Katia Blanco Primary Care Provider [phone] Encounter Details Date Type Department Care Team (Late st Contact Info) Description 12/22/2020 Orders Only [facility] Interventional Radiology - [address] [address] Guicho Rosales MD [address] [place] [address], [address] [place] [phone] Cirrhosis ([facility] (Primary Dx) Social History Tobacco Use Types [...] Description 01/23/2024 10:00 EDT Office Visit [facility] General Surgery - [facility] [address] [place], [place] [address] Bon Gutierrez MD 111 [facility], [address] [place] [phone] 09/10/2024 10:00 EDT Appointment Shaina Mejia [address] [place] [address] documented as of this encounter Visit Diagnoses Diagnosis Cirrhosis (HCC-CMS)- Primary Cirrhosis of liver without mention of alcohol documented in this encounter Care Teams Analysis Consultant Relationship Specialty Start Date End Date Katia Blanco [place] [address] PCP - General 03/26/19 09/20/22 documented as of this encounter
--- OUTSIDE RECORDS SUMMARY | 2024-01-17 15:35 | XMS_ITS | Encounter Summary ---
Author Organization [facility] Address [address] [place] [address] Care Team Providers Care Art Museum Aide Name Role Phone George Lou NORMA Primary Care Provider [phone] Reason for Referral * Radiology Services (Routine/Next Available) - Receiving Office to Obtain Authorization Specialty Diagnoses / Procedures Referred By Tad alcaraz Referred To Contact Procedures TUMOR BOARD RADIOLOGY CONSULT LIVER TUMOR BOARD RADIOLOGY CONSULT NON BREAST Filipe Sarmiento MD [address] [place] [phone] Referral ID Status Reason Start Date Expiration Date Visits Requested Visits Authorized [id number] Receiving Office to Obtain Authorization 11/25/2023 1 1 * Consult (Routine/Next Available) - Specialty Report Received Specialty Diagnoses / Procedures Referred By Tad alcaraz Referred To Contact Hematology and Oncology Diagnoses Alcoholic cirrhosis of liver without ascites (HCC-CMS) Filipe Sarmiento MD [address] [place] [phone] Referral ID Status Reason Start Date Expiration Date Visits Requested Visits Authorized [id number] Specialty Report Received Specialty Services Required 11/25/2023 1 1 Question Answer Location [facility] Tumor Board Liver Working Stage [...] st Contact Info) Description 11/25/2023 Orders Only [facility] Interventional Radiology - [address] [address] Echo Doe RN Alcoholic cirrhosis of liver [...] Description 01/23/2024 10:00 EDT Office Visit [facility] General Surgery - [address] [address] Bon Gutierrez MD 111 [facility], [address] [place] [phone] 09/10/2024 10:00 EDT Appointment Shaina Bergeron Ultrasound [address] [place] [address] Scheduled Referrals Name Type Priority Associated Diagnoses [...] performed for the imaging exams listed above. [id number] Resulting Agency Comment [id number] Procedure Note Cole Leblanc MD - 12/08/2023 TUMOR BOARD IMAGING REVIEW Tumor board: Liver tumor board Date of tumor board: 12/07/2023 Indication: Liver lesions. Imaging studies reviewed: Abdominal MRI with and without contrast 11/17/2023 Comments: A focused interpretation for the purpose of tumor board/MDC discussion wasperformed for the imaging exams listed above. [id number] Filipe Sarmiento MD IMG CT ORDERABLES documented in this encounter Visit Diagnoses Diagnosis Alcoholic cirrhosis of liver without ascites (HCC-CMS)- Primary Alcoholic cirrhosis of liver documented in this encounter Care Teams Art Museum Aide Relationship Specialty Start Date End Date George Lou RPA [address] [place] [address] PCP - General Family Medicine - Primary Care 09/21/22 documented as of this encounter
--- OUTSIDE RECORDS SUMMARY | 2024-01-17 15:35 | XMS_ITS | Encounter Summary ---
Author Organization [facility] Address [address] [place] [address] Care Team Providers Care Inspector Aide Name Role Phone George Lou NORMA Primary Care Provider [phone] Encounter Details Date Type Department Care Team (Late st Contact Info) Description 12/23/2023 Orders Only [facility] Interventional Radiology - [facility] [place] [address] [place] [address] Echo Doe RN Alcoholic cirrhosis, unspecified whether ascites present ([facility]) (Primary Dx) Social History Tobacco Use [...] Description 01/23/2024 10:00 EDT Office Visit [facility] General Surgery - [address] [phone] Bon Gutierrez MD 111 [facility], [facility], [address] [place] [phone] 09/10/2024 10:00 EDT Appointment Shaina Mejia [address] [place] [address] Scheduled Orders Name Type Priority Associated Diagnoses Orde r Schedule AFP TUMOR MARKER Lab Routine Alcoholic cirrhosis, unspecified whether ascites present (HCC-CMS) Expected: 12/24/2023 (Approximate), Expires: 12/22/2024 COMPLETE BLOOD COUNT Lab Routine Alcoholic cirrhosis, unspecified whether ascites present (HCC-CMS) Expected: 12/24/2023 (Approximate), Expires: 06/21/2024 COMPREHENSIVE METABOLIC PANEL (CMP) Lab Routine Alcoholic cirrhosis, unspecified whether ascites present (HCC-CMS) Expected: 12/24/2023 (Approximate), Expires: 06/21/2024 PROTIME Lab Routine Alcoholic cirrhosis, unspecified whether ascites present (HCC-CMS) Expected: 12/24/2023 (Approximate), Expires: 06/21/2024 documented as of this encounter Visit Diagnoses Diagnosis Alcoholic cirrhosis, unspecified whether ascites present (HCC-CMS)- Primary documented in this encounter Care Teams Inspector Aide Relationship Specialty Start Date End Date George Lou RPA [address] [place] [address] PCP - General Family Medicine - Primary Care 09/21/22 documented as of this encounter
--- OUTSIDE RECORDS SUMMARY | 2024-01-17 15:35 | XMS_ITS | Encounter Summary ---
Author Organization [facility] Address [address] [place] [address] Care Team Providers Care Cash Analyst Name Role Phone CarmineGeorge NORMA Primary Care Provider [phone] Reason for Visit * Reason Onset Date Comments Appointment Related 09/27/2023 Encounter Details Date Type Department Care Team (Late st Contact Info) Description 09/27/2023 Telephone [facility] Interventional Radiology - [address] [phone] Guicho Rosales MD [address] [place] [address] [address] [place] [address] Appointment Related Social History Tobacco [...] am check in; 11:30am scan time Location: [address] [address] Followed by: October Appointment type: Follow up office visit Scheduled with: Marcel Bennett Time: 2:00pm Location: Inter[facility]iology [facility], 3rd Floor documented in this encounter Plan of Treatment Upcoming Encounters Date Type Department Care Team (Late st Contact Info) Description 01/23/2024 10:00 EDT Office Visit [facility] General Surgery - [address] [address] Bon Gutierrez MD [address] [place] [address], [address] [place] [address] 09/10/2024 10:00 EDT Appointment [address] [address] documented as of this encounter Visit Diagnoses Not on filedocumented in this encounter Care Teams Cash Analyst Relationship Specialty Start Date End Date George Lou RPA [address] [place] [address] PCP - General Family Medicine - Primary Care 09/21/22 documented as of this encounter
--- OUTSIDE RECORDS SUMMARY | 2024-01-17 15:35 | XMS_ITS | Encounter Summary ---
Author Organization [facility] Address [address] [place] [address] Care Team Providers Care Call Center Team Leader Name Role Phone Katia Blanco IMANI Primary Care Provider Reason for Visit * Reason Onset Date Comments Follow-up 07/09/2021 Encounter Details Date Type Department Care Team (Late st Contact Info) Description 07/09/2021 Telephone [facility] Interventional Radiology - [facility] [address] [place] [address] Melissa Munroe, RN [address] [place] [address] Follow-up Social History Tobacco Use Types Packs/Day [...] [facility] General Surgery - [address] [phone] Bon Gutierrez MD 111 [facility], [address] [place] [phone] 09/10/2024 10:00 EDT Appointment Shaina Bergeron [place] [phone] [place], [place] [address] documented as of this encounter Visit Diagnoses Not on filedocumented in this encounter Care Teams Call Center Team Leader Relationship Specialty Start Date End Date Katia Blanco FNP Cheryl [place] [address] PCP - General 03/26/19 09/20/22 documented as of this encounter
--- OUTSIDE RECORDS SUMMARY | 2024-01-17 15:35 | XMS_ITS | Encounter Summary ---
Author Organization [facility] Address [address] [place] [address] Care Team Providers Care Manager Sales Name Role Phone Katia Blanco IMANI Primary Care Provider [phone] Reason for Visit * Reason Comments Follow-up Encounter Details Date Type Department Care Team (Late st Contact Info) Description 09/08/2021 10:00 EDT Office Visit [facility] Interventional Radiology - [address] [phone] Guicho Rosales MD [address] [place] [address] [address] [place] [address] Alcoholic cirrhosis of liver without [...] laxative. 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 He has been [...] Info) Description 01/23/2024 10:00 EDT Office Visit [facility] General Surgery - [facility] [address] [place], [place] [address] Bon Gutierrez MD 111 [facility], [facility], [address] [place] [address] 09/10/2024 10:00 EDT Appointment Shaina Bergeron Ultrasound [address] [place], [place] [phone] documented as of this encounter Visit Diagnoses Diagnosis Alcoholic cirrhosis of liver without ascites (HCC-CMS)- Primary Alcoholic cirrhosis of liver documented in this encounter Care Teams Manager Sales Relationship Specialty Start Date End Date Katia Blanco FNP [place] [address] PCP - General 03/26/19 09/20/22 documented as of this encounter
--- OUTSIDE RECORDS SUMMARY | 2024-01-17 15:35 | XMS_ITS | Encounter Summary ---
Author Organization [facility] Address [address] [place] [address] Care Team Providers Care Director Of Volunteer Services Name Role Phone CarmineGeorge NORMA Primary Care Provider [phone] Encounter Details Date Type Department Care Team (Late st Contact Info) Description 08/24/2023 Lab Requisition [facility] Pathology & Laboratory Medicine - [address] [address] Outr Resulting Lab, Provider Social History Tobacco [...] 10:00 EDT Office Visit [facility] General Surgery - [facility] [address] [place], [place] [phone] Bon Gutierrez MD 111 [facility], [address] [place] [address] 09/10/2024 10:00 EDT Appointment Shaina Mejia [address] [place] [address] documented as of this encounter Procedures Procedure Name Priority Date/Time Associated Diagnosis Comments H. PYLORI ANTIGEN Routine 08/23/2023 16: 41 EDT documented in this encounter Results * H. PYLORI ANTIGEN (08/23/2023 16:41 EDT) H. Pylori Negative Negative 08/26/2023 14:34 EDT [facility] Comment:Indicates the absenc e of H. pylori stool antigen, (or the level of antigen is below that which can be detected by the assay) Feces SPECIMEN FROM RECTUM / Unknown 08/23/2023 16:41 EDT 08/24/2023 17:15 EDT Narrative [facility] - 08/26/2023 14:34 EDT New Liaison XL testing method used as of 01/31/2023 Provider Outr Resulting Lab MICROBIOLOGY - GENERAL ORDERABLES [facility] [address] [place], [place] [phone] documented in this encounter Visit Diagnoses Not on filedocumented in this encounter Care Teams Director Of Volunteer Services Relationship Specialty Start Date End Date George Lou RPA [address] [place] [address] PCP - General Family Medicine - Primary Care 09/21/22 documented as of this encounter
--- OUTSIDE RECORDS SUMMARY | 2024-01-17 15:35 | XMS_ITS | Encounter Summary ---
Author Organization [facility] Address [address] [place] [address] Care Team Providers Care Rail Maintenance Worker Name Role Phone Katia Blanco IMANI Primary Care Provider [phone] Reason for Visit * Vascular Lab (Routine/Next Available) - Closed Specialty Diagnoses / Procedures [facility] Referred To Contact Diagnoses Cirrhosis (HCC-CMS) Procedures US LIVER/ABDOMEN VISCERAL DOPPLER US HEPATOPORTAL VEIN DUPLEX Guicho Rosales MD [address] [place] [address] 1 [place] [address] Referral ID Status Reason Start Date Expiration Date Visits Re quested Visits Authorized [id number] Closed 12/22/2020 1 1 Encounter Details Date Type Department Care Team (Latest Contact Info) Description 09/08/2021 7:08 EDT - 09/08/2021 23:59 EDT Hospital Encounter Medical Center Radiology [facility] [place] [address] [place] [address] Cirrhosis (HCC-CMS) (HCC) (HCC-CMS) Discharge Disposition: Home [...] times daily. Obt[facility] approved on 05/31/19 x1 year. Phone number for PAP: [phone] valsartan (DIOVAN) 80 mg tablet Take 160 [...] Description 01/23/2024 10:00 EDT [facility] Visit [facility] General Surgery - [address] [address] Bon Gutierrez MD [address] [place] [address], Level 5 [place] [address] 09/10/2024 10:00 EDT Appointment Shaina Bergeron Ultrasound [address] [place] [address] documented as of this encounter Procedures Procedure [...] alcohol documented in this encounter Care Teams Rail Maintenance Worker Relationship Specialty Start Date End Date Katia [place] [address] PCP - General 03/26/19 09/20/22 documented as of this encounter
--- OUTSIDE RECORDS SUMMARY | 2024-01-17 15:35 | XMS_ITS | Encounter Summary ---
Author Organization [facility] Address [address] [place] [address] Care Team Providers Care Protection Chief Industrial Plant Name Role Phone Katia Blanco IMANI Primary Care Provider [phone] Reason for Visit * Reason Onset Date Comments Appointment Related 06/24/2021 Encounter Details Date Type Department Care Team (Late st Contact Info) Description 06/24/2021 Telephone [facility] Interventional Radiology - [address] [address] Guicho Rosales MD [address] [place] [address] 1 [place] [address] Appointment Related Social History Tobacco [...] Telephone Encounter - Lizy Hull - 06/24/2021 4968 EDT Incoming voicemail from Alonzo regarding follow [...] Info) Description 01/23/2024 10:00 EDT Office Visit [facility] General Surgery - [address] [address] Bon Gutierrez MD 111 [facility], Level 5 [place] [address] 09/10/2024 10:00 EDT Appointment Shaina Bergeron Ultrasound 0 [place] [address] documented as of this encounter Visit Diagnoses Not on filedocumented in this encounter Care Teams Protection Chief Industrial Plant Relationship Specialty Start Date End Date Katia Blanco FNP [facility]yl [facility] [address] PCP - General 03/26/19 09/20/22 documented as of this encounter
--- OUTSIDE RECORDS SUMMARY | 2024-01-17 15:35 | XMS_ITS | Encounter Summary ---
Author Organization [facility] Address [address] [place] [address] Care Team Providers Care Legger Press Operator Name Role Phone Katia Blanco IMANI Primary Care Provider [phone] Reason for Referral * Radiology Services (Routine/Next Available) - Authorization Not Required Specialty Diagnoses / Procedures [facility] Referred To Contact Diagnoses Alcoholic cirrhosis of liver without ascites (HCC-CMS) Procedures US LIVER/ABDOMEN VISCERAL DOPPLER Guicho Rosales MD [address] [place] [phone] [facility] Referral ID Status Reason Start Date Expiration Date Visits Requested Visits Authorized [id number] Authorization Not Required 07/20/2022 1 1 Encounter Details Date Type Department Care Team (Late st Contact Info) Description 07/20/2022 Orders Only [facility] Interventional Radiology - [place] [address] Guicho Rosales MD [address] [place] [phone] Alcoholic cirrhosis of liver without ascites [...] [facility] General Surgery - [address] [id number] Bon Gutierrez MD 111 [facility], Level 5 [place] [address] 09/10/2024 10:00 EDT Appointment Shaina Bergeron Ultrasound 7[address] [place] [address] documented as of this encounter [...] liver 3. 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 AJR Am J Roentgenol. 1996.May;168(2):237-57. Guicho Rosales MD IM US ORDER CLAUDIO documented in this encounter Visit Diagnoses Diagnosis Alcoholic cirrhosis of liver without ascites (HCC-CMS)- Primary Alcoholic cirrhosis of liver Alcoholic cirrhosis of liver without ascites (HCC-CMS) Alcoholic cirrhosis of liver documented in this encounter Care Teams Legger Press Operator Relationship Specialty Start Date End Date Katia Blanco [place] [address] [place] [address] PCP - General 03/26/19 09/20/22 documented as of this encounter
--- OUTSIDE RECORDS SUMMARY | 2024-01-17 15:35 | XMS_ITS | Encounter Summary ---
Author Organization [facility] Address [address] [place] [address] Care Team Providers Care Hand Potter Name Role Phone George Lou [facility] Primary Care Provider [phone] Reason for Referral * Radiology Services (Routine/Next Available) - Authorization Not Required Specialty Diagnoses / Procedures Referred By Contac t Referred To Contact Diagnoses Alcoholic cirrhosis of liver without ascites (HCC-CMS) Procedures US LIVER/ABDOMEN VISCERAL DOPPLER Guicho Rosales MD [address] [place] [address] [facility] Referral ID Status Reason Start Date Expiration Date Visits Requested Visits Authorized [id number] Authorization Not Required 07/20/2022 1 1 Reason for Visit * Radiology Services (Routine/Next Available) - Authorization Not Required Specialty Diagnoses / Procedures Referred By Contac t Referred To Contact Diagnoses Alcoholic cirrhosis of liver without ascites (HCC-CMS) Procedures US LIVER/ABDOMEN VISCERAL DOPPLER Guicho Rosales MD [address] [place] [address] [facility] Referral ID Status Reason Start Date Expiration Date Visits Requested Visits Authorized [id number] Authorization Not Required 07/20/2022 1 1 Encounter Details Date Type Department Care Team (Latest Contact Info) Description 09/21/2022 7:28 EDT - 09/21/2022 7:29 EDT Hospital Encounter Medical Center Radiology [facility] [place] [address] [place] [address] Alcoholic cirrhosis of liver without ascites (HCC-CMS) [...] times daily. Obtaining through Patient Assistance Program ([employer]), approved on 05/31/19 x1 year. Phone number for PAP: [phone] valsartan (DIOVAN) 80 mg tablet Take 160 [...] Visit [facility] General Surgery - [facility] [address] [place], [place] [id number] Bon Gutierrez MD 111 [facility], Level 5 [place] [phone] 09/10/2024 10:00 EDT Appointment Shaina Bergeron Ultrasound [address] [place], [place] [phone] documented as of this encounter Procedures Procedure [...] Am J Roentgenol. 1996.May;168(2):467-72. Guicho Rosales MD [facility] US ORDER CLAUDIO documented in this encounter Visit Diagnoses Diagnosis Alcoholic cirrhosis of liver without ascites (HCC-CMS) Alcoholic cirrhosis of liver documented in this encounter Care Teams Hand Potter Relationship Specialty Start Date End Date George Lou RPA [address] [address] PCP - General Family Medicine - Primary Care 09/21/22 documented as of this encounter
--- OUTSIDE RECORDS SUMMARY | 2024-01-17 15:35 | XMS_ITS | Encounter Summary ---
Author Organization [facility] Address [address] [place] [address] Care Team Providers Care Dyslexia Teacher Name Role Phone CarmineGeorge NORMA Primary Care Provider [phone] Reason for Visit * Reason Comments Follow-up Encounter Details Date Type Department Care Team (Late st Contact Info) Description 09/21/2022 11:00 EDT Office Visit [facility] Interventional Radiology - [address] [address] Guicho Rosales MD [address] [place] [address], Level 1 [place] [address] Alcoholic cirrhosis of liver without [...] laxative. 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 He has been [...] Info) Description 01/23/2024 10:00 EDT Office Visit [facility] General Surgery - [facility] [address] [place], [place] [address] Bon Gutierrez MD 111 [facility], Level 5 [place] [address] 09/10/2024 10:00 EDT Appointment Shaina Bergeron Ultrasound [address] [place] [address] documented as of this encounter Visit Diagnoses [...] 06/03/202209/21 added in this encounter Care Teams Dyslexia Teacher Relationship Specialty Start Date End Date George Lou RPA [address] [place] [address] PCP - General Family Medicine - Primary Care 09/21/22 documented as of this encounter
--- OUTSIDE RECORDS SUMMARY | 2024-01-17 15:35 | XMS_ITS | Encounter Summary ---
Author Organization [facility] Address [address] [place] [address] Care Team Providers Care Instructor Watch Assembly Name Role Phone CarmineGeorge Ruby GREEN Primary Care Provider [phone] Reason for Visit * Reason Comments Tumor Board * Consult (Routine/Next Available) - Specialty Report Received Specialty Diagnoses / Procedures Referred By Tad alcaraz Referred To Contact Hematology and Oncology Diagnoses Alcoholic cirrhosis of liver without ascites (HCC-CMS) Filipe Sarmiento MD [address] [place] [address] 1 [place] [address] Referral ID Status Reason Start Date Expiration Date Visits Requested Visits Authorized [id number] Specialty Report Received Specialty Services Required 11/25/2023 1 1 Encounter Details Date Type Department Care Team (Latest Contact Info) Description 12/21/2023 16:30 EDT Tumor Board [facility] Cancer Center Hematology [place] [address] Hepatocellular carcinoma (HCC-CMS) (Primary Dx) Social History Tobacco Use [...] as of this encounter Progress Notes * Matteo Ovalles MD - 12/21/2023 1630 EDT Transdisciplinary team presenting case: Liver Date of Presentation: 12/21/2023 Patient Name: Alonzo Urbina Diagnosis: 1. Hepatocellular carcinoma (HCC-CMS) AJCC Stage: II Clinical Question: No Radiology Question:Discuss dz extent/staging for tx plan Pathology Question: No need to review Prospective Presentation? Yes Clinical Trial Option Discussed? Yes, no clinical trials available for patient Treatment Guidelines Discussed? Yes Attending Services: Surgery, Pathology, Radiology, and Interventional Radiology. Tumor Board Review and Discussion: Radiology: Radiology review notes: Recent MRI reveals a 2.6 cm LI-RADS 5 lesion in hepatic segment 4B Note: this interpretation is subject to the limitations of the tumor board setting and is simply advisory in nature. Pathology: Pathology review notes: Not performed. Note: this interpretation is subject to the limitations of the tumor board setting and is simply advisory in nature. Advisory Recommendations: - Obtain AFP and chest CT to complete staging, proceed with treatment with Y90. These advisory recommendations are based on the limited information available and presented during the tumor board. This advice does not supersede or substitute for the treating physicians??? physical assessment findings and clinical judgement. I was present at the Tumor Board conference when this patient was discussed. I have reviewed and edited the Tumor Board note as needed to reflect the general discussion of our multidisciplinary conference members. documented in this encounter Plan of Treatment Upcoming Encounters Date Type Department Care Team (Late st Contact Info) Description 01/23/2024 10:00 EDT Office Visit [facility] General Surgery - [address] [address] Bon Gutierrez MD [address] [place] [address], Level 5 [place] [address] 09/10/2024 10:00 EDT Appointment Shaina Mejia [address] [place] [phone] Scheduled Referrals Name Type Priority Associated Diagnoses Orde r Schedule AMB CONSULT/FOLLOW UP TUMOR BOARD Outpatient Referral Routine Alcoholic cirrhosis of liver without ascites (HCC-CMS) Ordered: 11/25/2023 documented as of this encounter Visit Diagnoses Diagnosis Hepatocellular carcinoma (HCC-CMS)- Primary Malignant neoplasm of liver, primary documented in this encounter Care Teams Instructor Watch Assembly Relationship Specialty Start Date End Date George Lou RPA [address] [place] [address] PCP - General Family Medicine - Primary Care 09/21/22 documented as of this encounter
--- OUTSIDE RECORDS SUMMARY | 2024-01-17 15:35 | XMS_ITS | Encounter Summary ---
Author Organization [facility] Address [address] [place] [address] Care Team Providers Care Process Manufacturing Engineer Name Role Phone George Lou NORMA Primary Care Provider [phone] Encounter Details Date Type Department Care Team (Late st Contact Info) Description 08/25/2023 Lab Requisition [facility] Pathology & Laboratory Medicine - [address] [address] Sari Yusuf, DO [address] [address] [place], [place] [id number] Right upper quadrant pain Social History Tobacco [...] Description 01/23/2024 10:00 EDT Office Visit [facility] General Surgery - [facility] [address] [place], [place] [address]657[address] Bon Gutierrez MD 111 [facility], Level 5 [place] [phone] 09/10/2024 10:00 EDT Appointment Shaina Mejia 0 [place], [place] [phone] documented as of this encounter Procedures Procedure [...] management options, if applicable. 08/26/2023 14:21 EDT [facility] Final Diagnosis A. DUODENUM, BULB, [...] with no specific pathologic features. 08/26/2023 14:21 [facility] Attestation By the signature below, the attending physician certifies that they have 1) personally conducted a gross and/or microscopic examination of the described specimen(s), and/or personally interpreted the results of laboratory testing of the described specimen(s), and 2) personally rendered or confirmed the above diagnosis. 08/26/2023 14:21 [facility] at 1421 Clinical History Abdominal pain 08/26/2023 14:21 [facility] Gross Description A. Received in [...] E1. QUYNH DELEON(ASCP) 08/25/2023 9:57 08/26/2023 14:21 [facility] Performing Lab [facility] 14:21 [facility] Scanned Images 08/26/2023 14:21 [facility] Tissue ESOPHAGEAL STRUCTURE / Unknown [...] 8:11 EDT Sari Yusuf DO PATHOLOGY ORDERABLES [facility] [address] [place] [address] documented in this encounter Visit Diagnoses Diagnosis Right upper quadrant pain Abdominal pain, right upper quadrant documented in this encounter Care Teams Process Manufacturing Engineer Relationship Specialty Start Date End Date George Lou RPA [address] [place] [address] PCP - General Family Medicine - Primary Care 09/21/22 documented as of this encounter
--- OUTSIDE RECORDS SUMMARY | 2024-01-17 15:35 | XMS_ITS | Encounter Summary ---
Author Organization [facility] Address [address] [place] [address] Care Team Providers Care Senior Lead Project Manager Name Role Phone CarmineGeorge Ruby GREEN Primary Care Provider [phone] Reason for Referral * Radiology Services (Routine/Next Available) - Receiving Office to Obtain Authorization Specialty Diagnoses / Procedures Referred By Tad alcaraz Referred To Contact Procedures TUMOR BOARD RADIOLOGY CONSULT LIVER TUMOR BOARD RADIOLOGY CONSULT NON BREAST Filipe Sarmiento MD [address] [place] [address] 1 [place] [address] Referral ID Status Reason Start Date Expiration Date Visits Requested Visits Authorized [id number] Receiving Office to Obtain Authorization 12/21/2023 1 1 Encounter Details Date Type Department Care Team (Late st Contact Info) Description 12/21/2023 Orders Only [facility] Cancer Center Hematology & [place] [address] Shantal Albarran RN Social History Tobacco Use Types Packs/Day [...] as of this encounter Progress Notes * Shantal Albarran RN - 12/21/2023 1649 EDT tumor documented in this encounter Plan of Treatment Upcoming Encounters Date Type Department Care Team (Late st Contact Info) Description 01/23/2024 10:00 EDT Office Visit [facility] General Surgery - [address] [address] Bon Gutierrez MD 111 [facility], Level [address] [place] [address] 09/10/2024 10:00 EDT Appointment Shaina Bergeron Ultrasound [address] [place] [address] Pending Results Name Type Priority Associated Diagnoses Date /Time TUMOR BOARD RADIOLOGY CONSULT LIVER Imaging Routine 12/22/2023 7:33 EDT Scheduled Orders Name Type Priority Associated Diagnoses Orde r Schedule TUMOR BOARD RADIOLOGY CONSULT LIVER Imaging Routine Expected: 2023, Expires: 12/20/2024 documented as of this encounter Visit Diagnoses Not on filedocumented in this encounter Care Teams Senior Lead Project Manager Relationship Specialty Start Date End Date George Lou RPA [address] [place] [address] PCP - General Family Medicine - Primary Care 09/21/22 documented as of this encounter
--- OUTSIDE RECORDS SUMMARY | 2024-01-17 15:35 | XMS_ITS | Encounter Summary ---
Author Organization [facility] Address [address] [place] [address] Care Team Providers Care Management Consultant Name Role Phone George Lou [facility] Primary Care Provider [phone] Reason for Referral * Radiology Services (Routine/Next Available) - Authorization Not Required Specialty Diagnoses / Procedures Referred By Contac t Referred To Contact Diagnoses Cirrhosis (HCC-CMS) Procedures US LIVER/ABDOMEN VISCERAL DUPLEX US LIVER WITH ELASTOGRAPHY Norbert Bennett PA-C [address] [place] [phone] [facility] Referral ID Status Reason Start Date Expiration Date Visits Requested Visits Authorized [id number] Authorization Not Required 10/14/2023 1 1 Reason for Visit * Radiology Services (Routine/Next Available) - Authorization Not Required Specialty Diagnoses / Procedures Referred By Contac t Referred To Contact Diagnoses Cirrhosis (HCC-CMS) Procedures US LIVER/ABDOMEN VISCERAL DUPLEX US LIVER WITH ELASTOGRAPHY Norbert Bennett PA-C [address] [address] [facility] Referral ID Status Reason Start Date Expiration Date Visits Requested Visits Authorized [id number] Authorization Not Required 10/14/2023 1 1 Encounter Details Date Type Department Care Team (Latest Contact Info) Description 11/17/2023 11:03 EDT - 11/17/2023 15:06 EDT Hospital Encounter Medical Center Radiology [facility] Wilbur [address] [place] [address] Cirrhosis ([facility]) Discharge Disposition: Home or Self Care Social [...] times daily. Obtaining through Patient Assistance Program ([employer]), approved on 05/31/19 x1 year. Phone number for PAP: [phone] semaglutide (OZEMPIC) subcutaneous pen Inject into the [...] Description 01/23/2024 10:00 EDT Office Visit [facility] General Surgery - [facility] [address] [place], [place] [address] Bon Gutierrez MD 111 [facility], Level 5 [place] [phone] 09/10/2024 10:00 EDT Appointment Shaina Bergeron Ultrasound [address] [place], [place] [phone] documented as of this encounter Procedures Procedure [...] malfunction. AJR Am J Roentgenol. 1996. May;168(2):467-72. [id number] Narrative 11/19/2023 13:29 EDT US ABDOMEN LIMITED WITH COMPLETE DUPLEX ??11/17/2023 1:41 PM SIGNS AND SYMPTOMS/COMMENTS: Cirrhosis COMPARISONS: Ultrasound abdomen from 10/10/2023 GRAYSCALE: TECHNIQUE: Grayscale ultrasound images of the liver were obtained. INDICATION FOR GRAYSCALE: Evaluate for structural abnormality Resulting Agency Comment [id number] Procedure Note Madelaine Francois MD - 11/19/2023 [...] shunt malfunction. AJR Am J Roentgenol. 1997.May;168(2):467-72. [id number] Norbert Bennett PA-C IMG US ORDERABLES documented in this encounter Visit Diagnoses Diagnosis Cirrhosis (HCC-CMS) Cirrhosis of liver without mention of alcohol documented in this encounter Care Teams Management Consultant Relationship Specialty Start Date End Date George Lou RPA [address] [place] [address] PCP - General Family Medicine - Primary Care 09/21/22 documented as of this encounter
--- OUTSIDE RECORDS SUMMARY | 2024-01-17 15:35 | XMS_ITS | Encounter Summary ---
Author Organization [facility] Address [address] [place] [address] Care Team Providers Care English Professor Name Role Phone Katia Blanco IMANI Primary Care Provider [phone] Reason for Visit * Reason Onset Date Comments Appointment Related 03/03/2021 Encounter Details Date Type Department Care Team (Late st Contact Info) Description 03/03/2021 Telephone [facility] Interventional Radiology - [address] [address] Guicho Rosales MD [address] [place] [address] 1 [place] [address] Appointment Related Social History Tobacco [...] else to give us a call at [phone] option 1 documented in this encounter Plan of Treatment Upcoming Encounters Date Type Department Care Team (Late st Contact Info) Description 01/23/2024 10:00 EDT Office Visit [facility] General Surgery - [facility] [address] [place], [place] [address] Bon Gutierrez MD 111 [facility], Level [address] [place] [address] 09/10/2024 10:00 EDT Appointment Shaina Bergeron Ultrasound 0 [place] [address] documented as of this encounter Visit Diagnoses Not on filedocumented in this encounter Care Teams English Professor Relationship Specialty Start Date End Date [place] [address] PCP - General 03/26/19 09/20/22 documented as of this encounter
--- OUTSIDE RECORDS SUMMARY | 2024-01-17 15:35 | XMS_ITS | Encounter Summary ---
Author Organization [facility] Address [address] [place] [address] Care Team Providers Care Shagger Name Role Phone George Lou NORMA Primary Care Provider [phone] Reason for Referral * Radiology Services (Routine/Next Available) - Authorized Specialty Diagnoses / Procedures Referred By Tad alcaraz Referred To Contact Diagnoses Liver lesion Procedures CT CHEST WO CONTRAST Filipe Sarmiento MD [address] [place] [address] 1 [place] [address] [facility] Referral ID Status Reason Start Date Expiration Date V isits Requested Visits Authorized [id number] Authorized 01/03/2024 04/02/2024 1 1 Encounter Details Date Type Department Care Team (Late st Contact Info) Description 12/23/2023 Orders Only [facility] Interventional Radiology - [address] [phone] Echo Doe RN Liver lesion (Primary Dx) Social History Tobacco Use Types [...] Info) Description 01/23/2024 10:00 EDT Office Visit [facility] General Surgery - [address] [phone] Bon Gutierrez MD 111 [facility], [facility], Level 5 [place] [phone] 09/10/2024 10:00 EDT Appointment Shaina Mejia [address] [place], [place] [address] Scheduled Orders Name Type Priority Associated Diagnoses Orde r Schedule CT CHEST WO CONTRAST Imaging Routine Liver lesion 1 Occurrences starting 12/23/2023 until 06/21/2025 documented as of this encounter Visit Diagnoses Diagnosis Liver lesion- Primary Other specified disorders of liver documented in this encounter Care Teams Shagger Relationship Specialty Start Date End Date George Lou RPA [address] [address] PCP - General Family Medicine - Primary Care 09/21/22 documented as of this encounter
--- OUTSIDE RECORDS SUMMARY | 2024-01-17 15:35 | XMS_ITS | Encounter Summary ---
Author Organization [facility] Address [address] [place] [address] Care Team Providers Care Carpenter Mate Name Role Phone Katia Blanco IMANI Primary Care Provider [phone] Reason for Visit * Reason Onset Date Comments Appointment Related 07/06/2021 IR follow up Encounter Details Date Type Department Care Team (Late st Contact Info) Description 07/06/2021 Telephone [facility] Inter[facility] Radiology - [facility] [address] [place] [address] Melissa Munroe, RN [address] [place] [address] Appointment Related (IR follow up) Social History [...] Miscellaneous Notes * Telephone Encounter - Melissa Munroe, RN - 07/06/2021 0928 EDT VM left [...] Info) Description 01/23/2024 10:00 EDT [facility] Visit [facility] General Surgery - [facility] [address] [place], [place] [address] Bon Gutierrez MD 111 [facility], Level 5 [place] [address] 09/10/2024 10:00 EDT Appointment Shaina Bergeron Ultrasound [address] [place], [place] [address] documented as of this encounter Visit Diagnoses Not on filedocumented in this encounter Care Teams Carpenter Mate Relationship Specialty Start Date End Date Katia [place] [address] PCP - General 03/26/19 09/20/22 documented as of this encounter
--- OUTSIDE RECORDS SUMMARY | 2024-01-17 15:35 | XMS_ITS | Encounter Summary ---
Author Organization [facility] Address [address] [place] [address] Care Team Providers Care Die Baker Name Role Phone Katia Blanco IMANI Primary Care Provider [phone] Reason for Visit * Reason Onset Date Comments Appointment Related 07/07/2021 Encounter Details Date Type Department Care Team (Late st Contact Info) Description 07/07/2021 Telephone [facility] Interventional Radiology - [address] 134311 Guicho Rosales MD [address] [place] [address] 1 [place] [address] Appointment Related Social History Tobacco [...] Visit [facility] General Surgery - [facility] [address] [place], [place] [address]44[address] Bon Gutierrez MD 111 [facility], Level 5 [place] [phone] 09/10/2024 10:00 EDT Appointment Shaina Mejia 0 [place] [address] documented as of this encounter Visit Diagnoses Not on filedocumented in this encounter Care Teams Die Baker Relationship Specialty Start Date End Date Katia Blanco FNP Cheryl [facility] [place] [address] PCP - General 03/26/19 09/20/22 documented as of this encounter
--- OUTSIDE RECORDS SUMMARY | 2024-01-17 15:35 | XMS_ITS | Encounter Summary ---
Author Organization [facility] Address [address] [place] [address] Care Team Providers Care Charge Account Identification Clerk Name Role Phone CarmineGeorge NORMA Primary Care Provider [phone] Reason for Visit * Reason Onset Date Comments Appointment Related 09/26/2023 Encounter Details Date Type Department Care Team (Late st Contact Info) Description 09/26/2023 Telephone [facility] Interventional Radiology - [address] [phone] Guicho Rosales MD [address] [place] [address] 1 [place] [address] Appointment Related Social History Tobacco [...] requesting return call to IR clinic at [phone] option 1 to confirm the following details October Appointment type: US liver Time: 11:15 am check in; 11:30am scan time Location: [address] [address] Followed by: October Appointment type: Follow up office visit Scheduled with: Marcel Bennett Time: 2:00pm Location: Interventional Radiology Clinic [facility], 3rd Floor documented in this encounter Plan of Treatment Upcoming Encounters Date Type Department Care Team (Late st Contact Info) Description 01/23/2024 10:00 EDT Office Visit [facility] General Surgery - [address] 221931 Bon Gutierrez MD [address] [place] [address], Level 5 [place] [phone] 09/10/2024 10:00 EDT Appointment Shaian [address] [address] documented as of this encounter Visit Diagnoses Not on filedocumented in this encounter Care Teams Charge Account Identification Clerk Relationship Specialty Start Date End Date George Lou RPA [address] [place] [address] PCP - General Family Medicine - Primary Care 09/21/22 documented as of this encounter
--- OUTSIDE RECORDS SUMMARY | 2024-01-17 15:35 | XMS_ITS | Encounter Summary ---
Author Organization [facility] Address [address] [place] [address] Care Team Providers Care Polo Coach Name Role Phone Katia Blanco IMANI Primary Care Provider [phone] Reason for Visit * Reason Onset Date Comments Appointment Related 07/10/2021 Encounter Details Date Type Department Care Team (Late st Contact Info) Description 07/10/2021 Telephone [facility] Interventional Radiology - [address] 775191 Guicho Rosales MD [address] [place] [address] 1 [place] [address] Appointment Related Social History Tobacco [...] radiology to schedule for this day specifically ([facility]) I will send letter to patient with updated ultrasound and office visit times with Dr. Rosales for 09/08/21 documented in this encounter Plan of Treatment Upcoming Encounters Date Type Department Care Team (Late st Contact Info) Description 01/23/2024 10:00 EDT Office Visit [facility] General Surgery - [address] 288161 Bon Gutierrez MD 111 [facility], Level 5 [place] [phone] 09/10/2024 10:00 EDT Appointment Shaina Bergeron Ultrasound 0 [place] [address] documented as of this encounter Visit Diagnoses Not on filedocumented in this encounter Care Teams Polo Coach Relationship Specialty Start Date End Date Katia Blanco [place] [address] PCP - General 03/26/19 09/20/22 documented as of this encounter
--- OUTSIDE RECORDS SUMMARY | 2024-01-17 15:35 | XMS_ITS | Encounter Summary ---
Author Organization [facility] Address [address] [place] [address] Care Team Providers Care Manager Demand Name Role Phone Katia Blanco IMANI Primary Care Provider [phone] Reason for Visit * Reason Onset Date Comments Appointment Related 06/22/2021 Encounter Details Date Type Department Care Team (Late st Contact Info) Description 06/22/2021 Telephone [facility] Interventional Radiology - [address] 215951 Guicho Rosales MD [address] [place] [address] 1 [place] [address] Appointment Related Social History Tobacco [...] at 10:30am Requesting return phone call to [phone] for confirmation of this plan. documented in this encounter Plan of Treatment Upcoming Encounters Date Type Department Care Team (Late st Contact Info) Description 01/23/2024 10:00 EDT Office Visit [facility] General Surgery - [facility] [address] [place], [place] [address] Bon Gutierrez MD 111 [facility], [facility], Level 5 [place] [address] 09/10/2024 10:00 EDT Appointment Shaina Bergeron Ultrasound [address] [place], [place] [address] documented as of this encounter Visit Diagnoses Not on filedocumented in this encounter Care Teams Manager Demand Relationship Specialty Start Date End Date Katia Blanco [place] [address] PCP - General 03/26/19 09/20/22 documented as of this encounter
--- OUTSIDE RECORDS SUMMARY | 2024-01-17 15:35 | XMS_ITS | Encounter Summary ---
Author Organization [facility] Address [address] [place] [address] Care Team Providers Care Telepathist Name Role Phone CarmineGeorge NORMA Primary Care Provider [phone] Reason for Referral * Radiology Services (Routine/Next Available) - Receiving Office to Obtain Authorization Specialty Diagnoses / Procedures Referred By Contac t Referred To Contact Procedures TUMOR BOARD RADIOLOGY CONSULT LIVER TUMOR BOARD RADIOLOGY CONSULT NON BREAST Filipe Sarmiento MD [address] [place] [phone] Referral ID Status Reason Start Date Expiration Date Visits Requested Visits Authorized [id number] Receiving Office to Obtain Authorization 11/25/2023 1 1 Reason for Visit * Radiology Services (Routine/Next Available) - Receiving Office to Obtain Authorization Specialty Diagnoses / Procedures Referred By Contac t Referred To Contact Procedures TUMOR BOARD RADIOLOGY CONSULT LIVER TUMOR BOARD RADIOLOGY CONSULT NON BREAST Filipe Sarmiento MD [address] [place] [phone] Referral ID Status Reason Start Date Expiration Date Visits Requested Visits Authorized [id number] Receiving Office to Obtain Authorization 11/25/2023 1 1 Encounter Details Date Type Department Care Team (Latest Contact Info) Description 11/25/2023 15:17 EDT - 11/25/2023 23:59 EDT Hospital Encounter [facility] Radiology - Main [address] [address] Discharge Disposition: Home or Self Care Social [...] times daily. Obtaining through Patient Assistance Program ([employer]), approved on 05/31/19 x1 year. Phone number for PAP: [phone] semaglutide (OZEMPIC) subcutaneous pen Inject into the [...] [facility] - [address] 406771 Bon Gutierrez MD 111 [facility], Level 5 [place] [phone] 09/10/2024 10:00 EDT Appointment Shaina Bergeron Ultrasound [address] [place], [place] [phone] documented as of this encounter Procedures Procedure [...] performed for the imaging exams listed above. [id number] Resulting Agency Comment [id number] Procedure Note Cole Leblanc MD - 12/08/2023 TUMOR BOARD IMAGING REVIEW Tumor board: Liver tumor board Date of tumor board: 12/07/2023 Indication: Liver lesions. Imaging studies reviewed: Abdominal MRI with and without contrast 11/17/2023 Comments: A focused interpretation for the purpose of tumor board/MDC discussion wasperformed for the imaging exams listed above. [id number] Filipe Sarmiento MD IMG CT ORDERABLES documented in this encounter Visit Diagnoses Not on filedocumented in this encounter Care Teams Telepathist Relationship Specialty Start Date End Date George Lou RPA [address] [place] [address] PCP - General Family Medicine - Primary Care 09/21/22 documented as of this encounter
--- OUTSIDE RECORDS SUMMARY | 2024-01-17 15:35 | XMS_ITS | Encounter Summary ---
Author Organization [facility] Address [address] [place] [address] Care Team Providers Care Round Kiln Drawer Name Role Phone George Lou NORMA Primary Care Provider [phone] Encounter Details Date Type Department Care Team (Late st Contact Info) Description 10/17/2023 Orders Only [facility] Radiology - Main [place] [address] [place], [place] [phone] Joe Morrow MD [address] [place] [phone] Social History Tobacco Use Types Packs/Day Years [...] Visit [facility] General Surgery - [address] 960441 Bon Gutierrez MD 111 [facility], Level 5 [place] [phone] 09/10/2024 10:00 EDT Appointment Shaina Bergeron [place] 265130 [place], [place] [address] documented as of this encounter Visit Diagnoses Not on filedocumented in this encounter Care Teams Round Kiln Drawer Relationship Specialty Start Date End Date George Lou RPA [address] [id number] PCP - General Family Medicine - Primary Care 09/21/22 documented as of this encounter
--- OUTSIDE RECORDS SUMMARY | 2024-01-17 15:35 | XMS_ITS | Encounter Summary ---
Author Organization [facility] Address [address] [place] [address] Care Team Providers Care Storeroom Keeper Name Role Phone Katia Blanco IMANI Primary Care Provider [phone] Reason for Visit * Reason Onset Date Comments Appointment Related 07/03/2021 Encounter Details Date Type Department Care Team (Late st Contact Info) Description 07/03/[address] [facility] Interventional Radiology - [address] 586101 Guicho Rosales MD [address] [place] [address] 1 [place] [address] Appointment Related Social History Tobacco [...] return phone call to radiology scheduling at [phone] to schedule Ultrasound when he is available- [...] Visit [facility] General Surgery - [address] 392981 Bon Gutierrez MD 111 [facility], Level [address] [place] [address] 09/10/2024 10:00 EDT Appointment Shaina Bergeron Ultrasound 0 [place], [place] [address] documented as of this encounter Visit Diagnoses Not on filedocumented in this encounter Care Teams Storeroom Keeper Relationship Specialty Start Date End Date Katia Blanco FNP [facility] [place] [address] PCP - General 03/26/19 09/20/22 documented as of this encounter
--- OUTSIDE RECORDS SUMMARY | 2024-01-17 15:35 | XMS_ITS | Referral Summary ---
Author Organization [facility] Address [address] [place] [address] Care Team Providers Care Fibre Cement Moulder Name Role Phone George Lou NORMA Primary Care Provider [phone] Encounters Date Type Department Care Team Description 12/23/2023 Orders Only [facility] Interventional Radiology - [address] [address] Echo Doe, MELY Liver lesion (Primary Dx) 12/23/2023 Orders Only [facility] Interventional Radiology - Main [address] [address] Echo Doe, RN Alcoholic cirrhosis, unspecified whether ascites present (HCC-CMS) (Primary Dx) 12/22/2023 7:33 EDT - 12/22/2023 23:59 EDT Hospital Encounter [facility] Radiology [address] 495701 Discharge Disposition: Home or Self Care 12/21/2023 Orders Only [facility] Hematology & Oncology - [address] [address] Shantal Albarran RN 12/21/2023 16:30 EDT Tumor Board [facility] H[facility] On[facility] [address] [address] Hepatocellular carcinoma (HCC-CMS) (Primary Dx) 11/25/2023 15:17 EDT - 11/25/2023 23:59 EDT Hospital Encounter [facility] Radiology [address] [address] Discharge Disposition: Home or Self Care 11/25/2023 Orders Only [facility] Interventional Radiology [address] [address] Echo Doe RN Alcoholic cirrhosis of liver without ascites (HCC-CMS) (Primary Dx) 11/17/2023 15:07 EDT - 11/17/2023 23:59 EDT [address] En[address] [facility] [address] [place] [address] Cirrhosis (HCC-CMS) Discharge Disposition: Home or Self Care 11/17/2023 11:03 EDT - 11/17/2023 15:06 EDT Hospital Encounter [facility] Radiology [address] 820911 Cirrhosis (HCC-CMS) Discharge Disposition: Home or Self Care 11/07/2023 Telephone [facility] Interventional Radiology [address] [address] Guicho Rosales MD Appointment Related 10/17/2023 Orders Only [address] [address] Joe Morrow MD from Last 3 Months Allergies Active Allergy [...] times daily. Obtaining through Patient Assistance Program ([employer]), approved on 05/31/19 x1 year. 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[facility]) 01/08/2014 Overview: This diagnosis was automatically updated [...] ICD10 Update Auto Replacement Cirrhosis of liver ([facility]) 03/14/2013 Resolved Problems Problem Noted Date Diagnosed [...] Office Visit [facility] General Surgery - [address] [address] Bon Gutierrez MD 111 [facility], Level 5 [place] [address] 09/10/2024 10:00 EDT Appointment Shaina Mejia [address] [place] [address] Medical Devices Implanted Type Area Literature Teacher Device Identifier Shelf Expiration Date Model / [...] performed for the imaging exams listed above. [id number] Resulting Agency Comment [id number] Procedure Note Cole Leblanc MD - 12/08/2023 TUMOR BOARD IMAGING REVIEW Tumor board: Liver tumor board Date of tumor board: 12/07/2023 Indication: Liver lesions. Imaging studies reviewed: Abdominal MRI with and without contrast 11/17/2023 Comments: A focused interpretation for the purpose of tumor board/MDC discussion wasperformed for the imaging exams listed above. [id number] Filipe Sarmiento MD IMG CT ORDERABLES * MR ABDOMEN W WO CONTRAST (11/17/2023 18:13 EDT) Anatomical Region Laterality Modality Body, Abdomen Magnetic Resonan ce 11/18/2023 10:3 7 EDT Addenda Addendum by Blake Fuentes MD on 11/25/2023 9:35 EDT Addendum: MRI of the abdomen with and without IV contrast was performed. [id number] Impressions 11/18/2023 10:37 EDT Lesion #1: Segment [...] ongoing routine MRI surveillance for hepatocellular carcinoma. [id number] Narrative 11/18/2023 10:37 EDT MR ABDOMEN W [...] Localizer: No additional findings. Resulting Agency Comment [id number] Procedure Note Blake Fuentes MD - 11/18/2023 [...] is ongoing routine MRIsurveillance for hepatocellular carcinoma. [id number] Norbert Bennett PA-C IMG MRI ORDERABLES * [...] malfunction. AJR Am J Roentgenol. 1996. May;168(2):467-72. [id number] Narrative 11/19/2023 13:29 EDT US ABDOMEN LIMITED WITH COMPLETE DUPLEX ??11/17/2023 1:41 PM SIGNS AND SYMPTOMS/COMMENTS: Cirrhosis COMPARISONS: Ultrasound abdomen from 10/10/2023 GRAYSCALE: TECHNIQUE: Grayscale ultrasound images of the liver were obtained. INDICATION FOR GRAYSCALE: Evaluate for structural abnormality Resulting Agency Comment [id number] Procedure Note Madelaine Francois MD - 11/19/2023 [...] shunt malfunction. AJR Am J Roentgenol. 1996.May;168(2):467-72. [id number] Norbert Bennett PA-C [facility] US ORDERABLES * HCV RNA DETECT QUANT (06/28/2018 6:56 EDT) [facility] HCV RNA Detect Quant Undetected Undetected IU/mL 06/29/2018 16:21 EDT [facility] Comment: Reference Range: ??Undetected The quantification range of this assay is 15 IU/mL to 100,000,000 IU/mL. Testing was performed by the Mili Ampliprep/Mili TaqMan HCV v2.0 ([employer] Blood specimen (specimen) BLOOD SPECIMEN / Unknown 06/28/2018 6:56 EDT 06/28/2018 7:13 EDT Zac Whitaker MD CHEMISTRY & BLOOD G ORDERABLES [facility] [address] [place] [address] from Last 3 Months or Most Recently Relevant to Health Maintenance Advance Directives For more information, please contact: [phone] Documents on File Type Date Recorded Patient Plateman Expl anation COLST/MOLST 09/15/2018 12:25 2013-03-26 DN [...] in the Discussion? 1. Patient Care Teams Fibre Cement Moulder Relationship Specialty Start Date End Date George Lou RPA [address] [place] [address] PCP - General Family Medicine - Primary Care 09/21/22
--- OUTSIDE RECORDS SUMMARY | 2024-01-17 15:35 | XMS_ITS | Encounter Summary ---
Author Organization [facility] Address [address] [place] [address] Care Team Providers Care Waiter/Waitress Tavern Name Role Phone George Lou [facility] Primary Care Provider [phone] Reason for Referral * Radiology Services (Routine/Next Available) - Authorization Not Required Specialty Diagnoses / Procedures Referred By Contac t Referred To Contact Diagnoses Other cirrhosis of liver (HCC-CMS) Procedures US LIVER/ABDOMEN VISCERAL DUPLEX Guicho Rosales MD [address] [place] [phone] [facility] Referral ID Status Reason Start Date Expiration Date Visits Requested Visits Authorized [id number] Authorization Not Required 09/12/2023 1 1 Reason for Visit * Radiology Services (Routine/Next Available) - Authorization Not Required Specialty Diagnoses / Procedures Referred By Tad alcaraz Referred To Contact Diagnoses Other cirrhosis of liver (HCC-CMS) Procedures US LIVER/ABDOMEN VISCERAL DUPLEX Guicho Rosales MD [address] [place] [phone] [facility] Referral ID Status Reason Start Date Expiration Date Visits Requested Visits Authorized [id number] Authorization Not Required 09/12/2023 1 1 Encounter Details Date Type Department Care Team (Latest Contact Info) Description 10/10/2023 11:01 EDT - 10/10/2023 23:59 EDT Hospital Encounter Shaina Bergeron Ultrasound [address] [place] [address] Other cirrhosis of liver ([facility]) Discharge Disposition: Home or Self Care [...] times daily. Obtaining through Patient Assistance Program ([employer]), approved on 05/31/19 x1 year. Phone number for PAP: [phone] semaglutide (OZEMPIC) subcutaneous pen Inject into the [...] Office Visit [facility] General Surgery - [facility] [address] [place], [place] [address] Bon Gutierrez MD 111 [facility], Level [address] [place] [address] 09/10/2024 10:00 EDT Appointment Shaina Bergeron Ultrasound [address] [place] [address] documented as of this encounter [...] shunt malfunction. AJR Am J Roentgenol. 1996. May;168(2):467-13. I have personally reviewed the images and the above interpretation and agree with the findings. [id number] Narrative 10/10/2023 14:58 EDT US ABDOMEN LIMITED WITH LIMITED DUPLEX ??10/10/2023 11:20 AM SIGNS AND SYMPTOMS/COMMENTS: TIPS. Need ultrasound surveillance to assess for patency and stenosis.;K74.69:Other cirrhosis of liver (HCC-CMS) COMPARISONS: TIPS ultrasound from 09/21/2022 and 09/08/2021 GRAYSCALE: TECHNIQUE: Grayscale ultrasound images of the liver were obtained. INDICATION FOR GRAYSCALE: Evaluate for structural abnormality Resulting Agency Comment [id number] Procedure Note Selvin Rowe MD - 10/10/2023 [...] the above interpretation andagree with the findings. [id number] Guicho Rosales MD [facility] US ORDER CLAUDIO documented in this encounter Visit Diagnoses Diagnosis Other cirrhosis of liver (HCC-CMS) documented in this encounter Care Teams Waiter/Waitress Tavern Relationship Specialty Start Date End Date George Lou RPA [address] [address] PCP - General Family Medicine - Primary Care 09/21/22 documented as of this encounter
--- OUTSIDE RECORDS SUMMARY | 2024-01-17 15:35 | XMS_ITS | Encounter Summary ---
Author Organization [facility] Address [address] [place] [address] Care Team Providers Care Funding Coordinator Name Role Phone CarmineGeorge NORMA Primary Care Provider [phone] Reason for Visit * Reason Onset Date Comments Appointment Related 11/07/2023 Encounter Details Date Type Department Care Team (Late st Contact Info) Description 11/07/2023 Telephone [facility] Interventional Radiology - [address] [id number] Guicho Rosales MD [address] [place] [address] 1 [place] [address] Appointment Related Social History Tobacco [...] 11/16 scheduled visits Requesting return call to [phone] option 1 documented in this encounter Plan of Treatment Upcoming Encounters Date Type Department Care Team (Late st Contact Info) Description 01/23/2024 10:00 EDT Office Visit [facility] General Surgery - [facility] [address] [place], [place] [phone] Bon Gutierrez MD 111 [facility], Level 5 [place] [address] 09/10/2024 10:00 EDT Appointment Shaina Mejia [address] [place] [address] documented as of this encounter Visit Diagnoses Not on filedocumented in this encounter Care Teams Funding Coordinator Relationship Specialty Start Date End Date George Lou RPA [address] [address] PCP - General Family Medicine - Primary Care 09/21/22 documented as of this encounter
--- OUTSIDE RECORDS SUMMARY | 2024-01-17 15:35 | XMS_ITS | Encounter Summary ---
Author Organization [facility] Address [address] [place] [address] Care Team Providers Care Harp Repairer Name Role Phone Katia Blanco Primary Care Provider [phone] Encounter Details Date Type Department Care Team (Late st Contact Info) Description 06/24/2020 Telephone [facility] Gastroenterology - [address] [address] Brody Duran MD PhD [address] [place] [address], Level [address] [place] [address] Social History Tobacco Use Types [...] - Shonda Camacho - 06/24/2020 0902 EDT [facility] Gastroenterology/Hepatology Clinic Fax received stating patient is no longer eligible for [facility] to receive rifaximin. Per Dr. [...] 01/23/2024 10:00 EDT Office Visit [facility] General Surgery - [address] [address] Bon Gutierrez MD 111 [facility], Level [address] [place] [address] 09/10/2024 10:00 EDT Appointment Shaina Bergeron Ultrasound [address] [place], [place] [address] documented as of this encounter Visit Diagnoses Not on filedocumented in this encounter Care Teams Harp Repairer Relationship Specialty Start Date End Date Katia Blanco FNP [facility] [place] [address] PCP - General 03/26/19 09/20/22 documented as of this encounter
--- OUTSIDE RECORDS SUMMARY | 2024-01-17 15:35 | XMS_ITS | Encounter Summary ---
Author Organization [facility] Address [address] [place] [address] Care Team Providers Care Spa Attendant Name Role Phone Katai Blanco IMANI Primary Care Provider [phone] Reason for Visit * Reason Onset Date Comments Appointment Related 03/02/2021 Encounter Details Date Type Department Care Team (Late st Contact Info) Description 03/02/2021 Telephone [facility] Interventional Radiology - [address] [id number] Guicho Rosales MD [address] [place] [address] 1 [place] [address] Appointment Related Social History Tobacco [...] * Telephone Encounter - Lizy Hull - 03/02/2021 1247 EST Called and left detailed voicemail for Alonzo requesting return phone call to IR clinic line at [phone] option 1 Left details regarding plan for [...] Info) Description 01/23/2024 10:00 EDT Office Visit [facility] General Surgery - [address] [phone] Bon Gutierrez MD 111 [facility], Level [address] [place] [address] 09/10/2024 10:00 EDT Appointment Shaina Mejia [address] [place], [place] [address] documented as of this encounter Visit Diagnoses Not on filedocumented in this encounter Care Teams Spa Attendant Relationship Specialty Start Date End Date Katia Blanco [place] [address] PCP - General 03/26/19 09/20/22 documented as of this encounter
--- OUTSIDE RECORDS SUMMARY | 2024-01-17 15:35 | XMS_ITS | Encounter Summary ---
Author Organization [facility] Address [address] [place] [address] Care Team Providers Care Toy Assembler Wood Name Role Phone George Lou NORMA Primary Care Provider [phone] Reason for Referral * Radiology Services (Routine/Next Available) - Authorization Not Required Specialty Diagnoses / Procedures Referred By Contac t Referred To Contact Diagnoses Cirrhosis (HCC-CMS) Procedures US LIVER/ABDOMEN VISCERAL DUPLEX US LIVER WITH ELASTOGRAPHY Carlos A Escobedo PA-C [address] [place] [phone] [facility] Referral ID Status Reason Start Date Expiration Date Visits Requested Visits Authorized [id number] Authorization Not Required 10/14/2023 1 1 * Radiology Services (Routine/Next Available) - Authorized Specialty Diagnoses / Procedures Referred By Contac t Referred To Contact Radiology Diagnoses Cirrhosis (HCC-CMS) Procedures MR ABDOMEN W WO CONTRAST Carlos A Escobedo PA-C [address] [phone] [facility] Referral ID Status Reason Start Date Expiration Date V isits Requested Visits Authorized [id number] Authorized 09/21/2023 12/20/2023 1 1 * Radiology Services (Routine/Next Available) - Authorization Not Required Specialty Diagnoses / Procedures Referred By Contreinaldo t Referred To Contact Diagnoses Cirrhosis (HCC-CMS) Procedures US LIVER/ABDOMEN VISCERAL DUPLEX US LIVER WITH ELASTOGRAPHY Carlos A Escobedo PA-C [address] [place] [phone] [facility] Referral ID Status Reason Start Date Expiration Date Visits Requested Visits Authorized [id number] Authorization Not Required 10/10/2023 1 1 Reason for Visit * Reason Comments IR Procedure Follow-up Encounter Details Date Type Department Care Team (Late st Contact Info) Description 10/10/2023 14:00 EDT Office Visit [facility] Interventional Radiology - [address] [id number] Carlos A Escobedo PA-C [address] [place] [address] Cirrhosis (HCC-CMS) (Primary Dx) Social History [...] Overall, he feels well and 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 No alcohol reported [...] Info) Description 01/23/2024 10:00 EDT Office Visit [facility] General Surgery - [address] [id number] Bon Gutierrez MD 111 [facility], Level 5 [place] [address] 09/10/2024 10:00 EDT Appointment Shaina Mejia [address] [place] [address] Scheduled Orders Name Type Priority [...] with and without IV contrast was performed. [id number] Impressions 11/18/2023 10:37 EDT Lesion #1: Segment [...] ongoing routine MRI surveillance for hepatocellular carcinoma. [id number] Narrative 11/18/2023 10:37 EDT MR ABDOMEN W [...] Localizer: No additional findings. Resulting Agency Comment [id number] Procedure Note Blake Fuentes MD - 11/18/2023 [...] is ongoing routine MRIsurveillance for hepatocellular carcinoma. [id number] Carlos A Escobedo PA-C IMRoger MRI ORDERABLES [...] malfunction. AJR Am J Roentgenol. 1996. May;168(2):467-72. [id number] Narrative 11/19/2023 13:29 EDT US ABDOMEN LIMITED WITH COMPLETE DUPLEX ??11/17/2023 1:41 PM SIGNS AND SYMPTOMS/COMMENTS: Cirrhosis COMPARISONS: Ultrasound abdomen from 10/10/2023 GRAYSCALE: TECHNIQUE: Grayscale ultrasound images of the liver were obtained. INDICATION FOR GRAYSCALE: Evaluate for structural abnormality Resulting Agency Comment [id number] Procedure Note Madelaine Francois MD - 11/19/2023 [...] intrahepaticportosystemic shunt malfunction. AJR Am J Roentgenol. 1996.May;168(2):467-35. [id number] Carlos A Escobdeo PA-C G US ORDERABLES documented in this encounter Visit Diagnoses Diagnosis Cirrhosis (HCC-CMS)- Primary Cirrhosis of liver without mention of alcohol Cirrhosis (HCC-CMS) Cirrhosis of liver without mention of alcohol Cirrhosis (HCC-CMS) Cirrhosis of liver without mention of alcohol documented in this encounter Care Teams Toy Assembler Wood Relationship Specialty Start Date End Date George Lou RPA 185 [facility] [address] [place] [address] PCP - General Family Medicine - Primary Care 09/21/22 documented as of this encounter
--- OUTSIDE RECORDS SUMMARY | 2024-01-17 15:35 | XMS_ITS | Encounter Summary ---
Author Organization [facility] Address [address] [place] [address] Care Team Providers Care Host/Hostess Restaurant Name Role Phone George Lou NORMA Primary Care Provider [phone] Reason for Referral * Radiology Services (Routine/Next Available) - Authorization Not Required Specialty Diagnoses / Procedures Referred By Tad alcaraz Referred To Contact Diagnoses Other cirrhosis of liver (HCC-CMS) Procedures US LIVER/ABDOMEN VISCERAL DUPLEX Guicho Rosales MD [address] [place] [phone] [facility] Referral ID Status Reason Start Date Expiration Date Visits Requested Visits Authorized [id number] Authorization Not Required 09/12/2023 1 1 Encounter Details Date Type Department Care Team (Late st Contact Info) Description 09/12/2023 Orders Only [facility] Interventional Radiology - [place] [phone] Guicho Rosales MD [address] [place] [address] Other cirrhosis of liver (HCC-CMS) (Primary [...] Info) Description 01/23/2024 10:00 EDT Office Visit [facility] General Surgery - [address] [address] Bon Gutierrez MD 111 [facility], Level [address] [place] [address] 09/10/2024 10:00 EDT Appointment Shaina Bergeron Ultrasound [address] [place] [address] documented as of this encounter [...] shunt malfunction. AJR Am J Roentgenol. 1996. May;168(2):467-83. I have personally reviewed the images and the above interpretation and agree with the findings. [id number] Narrative 10/10/2023 14:58 EDT US ABDOMEN LIMITED WITH LIMITED DUPLEX ??10/10/2023 11:20 AM SIGNS AND SYMPTOMS/COMMENTS: TIPS. Need ultrasound surveillance to assess for patency and stenosis.;K74.69:Other cirrhosis of liver (HCC-CMS) COMPARISONS: TIPS ultrasound from 09/21/2022 and 09/08/2021 GRAYSCALE: TECHNIQUE: Grayscale ultrasound images of the liver were obtained. INDICATION FOR GRAYSCALE: Evaluate for structural abnormality Resulting Agency Comment [id number] Procedure Note Selvin Rowe MD - 10/10/2023 [...] the above interpretation andagree with the findings. [id number] Guicho Rosales MD IMG US ORDER CLAUDIO documented in this encounter Visit Diagnoses Diagnosis Other cirrhosis of liver (HCC-CMS)- Primary Other cirrhosis of liver (HCC-CMS) documented in this encounter Care Teams Host/Hostess Restaurant Relationship Specialty Start Date End Date George Lou RPA [address] [place] [address] PCP - General Family Medicine - Primary Care 09/21/22 documented as of this encounter
--- OUTSIDE RECORDS SUMMARY | 2024-01-17 15:36 | XMS_ITS | Encounter Summary ---
Author Organization [facility] Address [address] [place] [address] Care Team Providers Care Licensed Loan Officer Name Role Phone Laurie Wiggins MD Primary Care Provider [phone] Encounter Details Date Type Department Care Team (Late st Contact Info) Description 12/20/2018 Orders Only [facility] Interventional Radiology - [address] [address] Guicho Rosales MD [address] [place] [address], Level [address] [place] [phone] Social History Tobacco Use Types Packs/Day Years [...] Info) Description 01/23/2024 10:00 EDT Office Visit [facility] General Surgery - [address] [phone] Bon Gutierrez MD 111 [facility], Level [address] [place] [address] 09/10/2024 10:00 EDT Appointment Shaina Bergeron [address] [phone] documented as of this encounter Visit Diagnoses Not on filedocumented in this encounter Care Teams Licensed Loan Officer Relationship Specialty Start Date End Date Laurie Wiggins MD PCP - General 05/08/18 03/25/19 documented as of this encounter
--- OUTSIDE RECORDS SUMMARY | 2024-01-17 15:36 | XMS_ITS | Encounter Summary ---
Author Organization [facility] Address [address] [place] [address] Care Team Providers Care Tariff Expert Name Role Phone Katia Blanco WELDER APPRENTICE GAS Primary Care Provider [phone] Reason for Visit * Reason Comments Follow-up Encounter Details Date Type Department Care Team (Late st Contact Info) Description 01/15/2020 14:30 EDT Telemedicine [facility] Interventional Radiology - [address] [address] Guicho Rosales MD [address] [place] [address], Level [address] [place] [address] Alcoholic cirrhosis, unspecified whether ascites [...] - 01/15/2020 1430 EDT No answer at [phone]. I left a voice mail that everything looks good on the ultrasound examination and that we would schedule another IR clinic visit and ultrasound in 1 year. I told him to callour office if he has any questions. documented in this encounter Plan of Treatment Upcoming Encounters Date Type Department Care Team (Late st Contact Info) Description 01/23/2024 10:00 EDT Office Visit [facility] General Surgery - [address] [address] Bon Gutierrez MD [address] [place] [address], [address] [place] [address] 09/10/2024 10:00 EDT Appointment Shaina Bergeron Ultrasound [address] [place] [address] documented as of this encounter Visit Diagnoses Diagnosis Alcoholic cirrhosis, unspecified whether ascites present (HCC-CMS)- Primary documented in this encounter Care Teams Tariff Expert Relationship Specialty Start Date End Date Katia Blanco FNP [place]yl [place] [address] PCP - General 03/26/19 09/20/22 documented as of this encounter
--- OUTSIDE RECORDS SUMMARY | 2024-01-17 15:36 | XMS_ITS | Encounter Summary ---
Author Organization [facility] Address [address] [place] [address] Care Team Providers Care Inspector Soldering Name Role Phone Laurie Wiggins MD Primary Care Provider [phone] Reason for Referral * Vascular Lab (Routine) - Closed Specialty Diagnoses / Procedures [facility] Referred To Contact Diagnoses 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) Procedures US HEPATOPORTAL VEIN DUPLEX Guicho Rosales MD [address] [place] [phone] Referral ID Status Reason Start Date Expiration Date Visits Re quested Visits Authorized [id number] Closed 03/25/2019 1 1 Encounter Details Date Type Department Care Team (Late st Contact Info) Description 02/23/2019 Orders Only [facility] [place] [address] Guicho Rosales MD [address] [place] [address] Cirrhosis of liver not due to [...] Info) Description 01/23/2024 10:00 EDT Office Visit [facility] General Surgery - [address] [address] Bon Gutierrez MD 111 [facility], Level 5 [place] [phone] 09/10/2024 10:00 EDT Appointment Shaina Mejia 0 [place] [address] documented as of this encounter Results * [...] KESSON Ped/Liver transplant liver measurement 12.30 cm [employer] Anatomical Region Laterality Modality Vascular Ultrasound Narrative [...] alcohol documented in this encounter Care Teams Inspector Soldering Relationship Specialty Start Date End Date Laurie Wiggins MD PCP - General 05/08/18 03/25/19 documented as of this encounter
--- OUTSIDE RECORDS SUMMARY | 2024-01-17 15:36 | XMS_ITS | Encounter Summary ---
Author Organization [facility] Address [address] [place] [address] Care Team Providers Care Bitumastic Applier Name Role Phone Katia Blanco IMANI Primary Care Provider [phone] Reason for Referral * Vascular Lab (Routine) - Closed Specialty Diagnoses / Procedures Referred By Tad alcaraz Referred To Contact Diagnoses 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) Procedures US HEPATOPORTAL VEIN DUPLEX Guicho Rosales MD [address] [place] [phone] Referral ID Status Reason Start Date Expiration Date Visits Re quested Visits Authorized [id number] Closed 03/25/2019 1 1 Reason for Visit * Vascular Lab (Routine) - Closed Specialty Diagnoses / Procedures Referred By Tad alcaraz Referred To Contact Diagnoses 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) Procedures US HEPATOPORTAL VEIN DUPLEX Guicho Rosales MD [address] [place] [phone] Referral ID Status Reason Start Date Expiration Date Visits Re quested Visits Authorized [id number] Closed 03/25/2019 1 1 Encounter Details Date Type Department Care Team (Latest Contact Info) Description 04/24/2019 8:12 EST - 04/24/2019 23:59 EST Hospital Encounter [place] [address] 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-[facility]) Discharge Disposition: Home or Self Care Social [...] [facility] General Surgery - [address] [address] Bon Gutierrez MD [address] [place] [address], [address] [place] [address] 09/10/2024 10:00 EDT Appointment Shaina Bergeron Ultrasound [address] [place] [address] documented as of this encounter Procedures Procedure [...] alcohol documented in this encounter Care Teams Bitumastic Applier Relationship Specialty Start Date End Date Katia Blanco FNP [facility]yl [facility] [address] PCP - General 03/26/19 09/20/22 documented as of this encounter
--- OUTSIDE RECORDS SUMMARY | 2024-01-17 15:36 | XMS_ITS | Encounter Summary ---
Author Organization [facility] Address [address] [place] [address] Care Team Providers Care Assembly Mechanic Name Role Phone Katia Blanco Primary Care Provider [phone] Encounter Details Date Type Department Care Team (Late st Contact Info) Description 05/15/2019 15:00 EST Phlebotomy Only [facility] ED Center 2 Phlebotomy [address] [place] [address] Starch Factory Laborer, Acc Phlebotomy Hepatic cirrhosis, unspecified hepatic cirrhosis [...] Info) Description 01/23/2024 10:00 EDT Office Visit [facility] General Surgery - [facility] [address], [place] [phone] Bon Gutierrez MD 111 [facility], Level 5 [place] [phone] 09/10/2024 10:00 EDT Appointment Shaina Bergeron Ultrasound [address] [place] [address] [phone] documented as of this encounter Procedures Procedure [...] 0.66 - 1.10 mcg/mL 05/16/2019 15:58 EST [facility] Comment: ADDITIONAL INFORMATION This test was developed and its performance characteristics determined by [facility] in a manner consistent with CLIA requirements. This test has not been cleared or approved by the U.S. Food and Drug Administration. Test Performed by: [facility] [address] [place] [address] Content Curator: Kojo Madison M.D. Ph.D.; CLIA# [id number] Blood VENOUS BLOOD / Unknown Venipuncture / Unknown 05/15/2019 14:57 EST 05/15/2019 15:24 EST Brody Duran MD PhD CHEMISTRY & BLO OD GAS ORDERABLES Performing Organization Address [facility] Co de Phone Number [facility] [address] [place] [address] * (ABNORMAL) PROTIME (05/15/2019 14:57 EST) Pathologist [facility] I.N.R. 1.2(H) 0.9 - 1.1 Ratio 05/15/2019 15:50 EST [facility] Pro Time 14.2(H) 10.3 - 13.4 secs 05/15/2019 15:50 EST [facility] Blood VENOUS BLOOD / Unknown Venipuncture / Unknown 05/15/2019 14:57 EST 05/15/2019 15:24 EST Narrative [facility] - 05/15/2019 15:50 EST Moderate Intensity Coumadin INR = 2.0-3.0 Adjustments in anticoagulant therapy dose should be based on the INR and NOT on the Protime. Brody Duran MD PhD HEMATOLOGY & PF 4 ORDERABLES Performing Organization Address City/[facility]/ZIP Co de Phone Number [facility] [address] [place] [address] * (ABNORMAL) COMPLETE BLOOD COUNT (05/15/2019 14:57 EST) WBC 3.38(L) 4.00 - 10.40 K/cmm 05/15/2019 15:34 [facility] RBC 4.30(L) 4.36 - 5.78 M/cmm 05/15/2019 15:34 [facility] Hemoglobin 11.3(L) 13.8 - 17.3 gm/dL 05/15/2019 15:34 [facility] HCT 35.2(L) 39.5 - 50.2 % 05/15/2019 15:34 [facility] MCV 82 81 - 95 fl 05/15/2019 15:34 [facility] MCH 26.3(L) 27.6 - 33.0 pg 05/15/2019 15:34 [facility] MCHC 32.1(L) 32.8 - 36.4 gm/dL 05/15/2019 15:34 [facility] RDW-CV 15.3(H) <14.2 % 05/15/2019 15:34 [facility] RDW-SD 45.0 <46.0 fl 05/15/2019 15:34 [facility] PLT 137(L) 141 - 377 K/cmm 05/15/2019 15:34 [facility] MPV 8.8(L) 9.5 - 12.7 fl 05/15/2019 15:34 [facility] Blood VENOUS BLOOD / Unknown Venipuncture / Unknown 05/15/2019 14:57 EST 05/15/2019 15:24 EST Brody Duran MD PhD HEMATOLOGY & PF 4 ORDERABLES [facility] [address] [place] [address] * (ABNORMAL) COMPREHENSIVE METABOLIC PANEL (CMP) (05/15/2019 14:57 EST) Pathologist [facility] Sodium 141 136 - 145 mEq/L 05/15/2019 15:53 [facility] Potassium 4.4 3.5 - 5.0 mEq/L 05/15/2019 15:53 [facility] Chloride 108 96 - 110 mEq/L 05/15/2019 15:53 [facility] CO2 Total 25 22 - 32 mEq/L 05/15/2019 15:53 [facility] Glucose 140(H) 70 - 100 mg/dL 05/15/2019 15:53 [facility] BUN 16 10 - 26 mg/dL 05/15/2019 15:53 [facility] Creatinine 0.82 0.66 - 1.25 mg/dL 05/15/2019 15:53 [facility] eGFR 93 >60 mL/min/1.7 3m2 05/15/2019 15:53 [facility] Comment:eGFR calculated crystal mclaughlin CKD-EPI equation for non- Americans. Multiply eGFR by 1.16 for patients. Total Protein 6.6 6.3 - 8.2 g/dL 05/15/2019 15:53 [facility] Albumin 3.7 3.4 - 4.9 g/dL 05/15/2019 15:53 [facility] Alkaline Phosphatase 75 38 - 126 U/L 05/15/2019 15:53 [facility] AST 34 15 - 46 U/L 05/15/2019 15:53 [facility] ALT 27 <50 U/L 05/15/2019 15:53 [facility] Bilirubin, Total 0.9 <1.4 mg/dL 05/15/19 20 15:53 [facility] Calcium 9.4 8.5 - 10.5 mg/dL 05/15/2019 15:53 [facility] Calculated Calcium 9.6 8.5 - 10.5 mg/dL 05/15/2019 15:53 [facility] Blood VENOUS BLOOD / Unknown Venipuncture / Unknown 05/15/2019 14:57 EST 05/15/2019 15:25 [facility] - 05/15/2019 15:53 EST 1 Brody Duran MD PhD CHEMISTRY & BLO OD GAS ORDERABLES [facility] [address] [place] [address] documented in this encounter Visit Diagnoses Diagnosis Hepatic cirrhosis, unspecified hepatic cirrhosis type, unspecified whether ascites present (HCC-CMS) Encephalopathy, hepatic (HCC-CMS) Hepatic encephalopathy documented in this encounter Care Teams Assembly Mechanic Relationship Specialty Start Date End Date Katia Bl[place] [address] PCP - General 03/26/19 09/20/22 documented as of this encounter
--- OUTSIDE RECORDS SUMMARY | 2024-01-17 15:36 | XMS_ITS | Encounter Summary ---
Author Organization [facility] Address [address] [place] [address] Care Team Providers Care Long Chain Quiller Tender Name Role Phone Katia Blanco Primary Care Provider [phone] Encounter Details Date Type Department Care Team (Late st Contact Info) Description 05/16/2019 Orders Only [facility] Gastroenterology - [address] [address] Brody Duran MD PhD 111 [facility], Level 5 [place] [address] Hepatic cirrhosis, unspecified hepatic cirrhosis [...] Info) Description 01/23/2024 10:00 EDT Office Visit [facility] General Surgery - [address] 341191 Bon Gutierrez MD 111 [facility], [address] [place] [phone] 09/10/2024 10:00 EDT Appointment Shaina Mejia [address] [place] [phone] documented as of this encounter Visit Diagnoses Diagnosis Hepatic cirrhosis, unspecified hepatic cirrhosis type, unspecified whether ascites present (HCC-CMS)- Primary Encephalopathy, hepatic (HCC-CMS) Hepatic encephalopathy documented in this encounter Care Teams Long Chain Quiller Tender Relationship Specialty Start Date End Date Katia Blanco FNP [place] [place] [address] PCP - General 03/26/19 09/20/22 documented as of this encounter
--- OUTSIDE RECORDS SUMMARY | 2024-01-17 15:36 | XMS_ITS | Encounter Summary ---
Author Organization [facility] Address [address] [place] [address] Care Team Providers Care Lock Installer Name Role Phone Ktaia Blanco Primary Care Provider [phone] Reason for Visit * Reason Onset Date Comments Medication Management 05/17/2019 Encounter Details Date Type Department Care Team (Late st Contact Info) Description 05/17/2019 Telephone [facility] Gastroenterology - [address] [address] Jennifer Real, barrel rib matting machine operator Management Social History Tobacco Use Types Packs/Day [...] Encounter - Jennifer Real RN - 05/17/2019 0925 EST Patient is zinc deficient - please arrange for prescription for zinc sulfate (220 mg): take 3 daily- per Dr Duran. Prescription sent to pharmacy. Patient is aware. 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 documented in this encounter Plan of Treatment Upcoming Encounters Date Type Department Care Team (Late st Contact Info) Description 01/23/2024 10:00 EDT Office Visit [facility] General Surgery - [address] [phone] Bon Gutierrez MD 111 [facility], Level [address] [place] [phone] 09/10/2024 10:00 EDT Appointment Shaina Mejia [address] [place], [place] 868296 documented as of this encounter Visit Diagnoses Not on filedocumented in this encounter Discontinued Medications Medication Sig Discontinue Reason Start Date End Da te zinc sulfate (ZINCATE) 220 (50) mg capsule Take 1 Cap by mouth 3 times daily. Reorder 05/17/2019 05/17/2019 documented as of this encounter Care Teams Lock Installer Relationship Specialty Start Date End Date Katia Blanco FNP [facility] [address] PCP - General 03/26/19 09/20/22 documented as of this encounter
--- OUTSIDE RECORDS SUMMARY | 2024-01-17 15:36 | XMS_ITS | Encounter Summary ---
Author Organization [facility] Address [address] [place] [address] Care Team Providers Care Drapery Operator Name Role Phone Katia Blanco Primary Care Provider [phone] Encounter Details Date Type Department Care Team [...] 10:00 EDT Office Visit [facility] General Surgery - [address] 470991 Bon Gutierrez MD 111 [facility], [address] [place] [phone] 09/10/2024 10:00 EDT Appointment Shaina Mejia [address] [place] [phone] documented as of this encounter Visit Diagnoses Not on filedocumented in this encounter Care Teams Drapery Operator Relationship Specialty Start Date End Date Katia Blanco [place] [address] PCP - General 03/26/19 09/20/22 documented as of this encounter
--- OUTSIDE RECORDS SUMMARY | 2024-01-17 15:36 | XMS_ITS | Encounter Summary ---
Author Organization [facility] Address [address] [place] [address] Care Team Providers Care Credit Consultant Name Role Phone Katia Blanco Primary Care Provider [phone] Reason for Visit * Reason Onset Date Comments Medication Management 06/05/2019 Encounter Details Date Type Department Care Team (Late st Contact Info) Description 06/05/2019 Telephone [facility] Gastroenterology - [address] [address] Brody Duran MD PhD 111 [facility], Level [address] [place] [address] Medication Management Social History Tobacco [...] Patient states he was called yesterday by [facility] pharmacy stating his prescription is ready but will cost ~$600. Called pharmacy to deactivate prescription they have, as patient will be unable to afford this. Previously received and faxed patient's completed PAP application on 05/28/19. Called PAP at [phone] to follow up on status of application. [...] Office Visit [facility] General Surgery - [address] [phone] Bon Gutierrez MD 111 [facility], [address] [place] [phone] 09/10/2024 10:00 EDT Appointment Shaina Bergeron [place] [address] [place], [place] [phone] documented as of this encounter Visit Diagnoses Not on filedocumented in this encounter Historical Medications * This list may reflect changes made after this encounter. Medication Sig Dispensed Refills Start Date End Date Multivitamins with Minerals tablet tablet Take 1 Tab by mouth daily. added in this encounter Care Teams Credit Consultant Relationship Specialty Start Date End Date Katia Blanco [place] [address] PCP - General 03/26/19 09/20/22 documented as of this encounter
--- OUTSIDE RECORDS SUMMARY | 2024-01-17 15:36 | XMS_ITS | Encounter Summary ---
Author Organization [facility] Address [address] [place] [address] Care Team Providers Care Benzol Operator Name Role Phone Katia Blanco BONDACTOR MACHINE OPERATOR Primary Care Provider [phone] George Lou RPA Primary Care Provider [phone] Encounter Details Date Type Department Care Team (Late st Contact Info) Description 09/14/2019 Lab Requisition [facility] Pathology & Laboratory Medicine - [facility] [address] [place], [place] [phone] Outr Resulting Lab, Provider Social History Tobacco [...] [facility] General Surgery - [facility] [address] [place], [place] 8[address] Bon Gutierrez MD [address] [facility], Level [address] [place] [phone] 09/10/2024 10:00 EDT Appointment Shaina Bergeron Ultrasound [address] [place], [place] [address] documented as of this encounter Procedures Procedure Name Priority Date/Time Associated Diagnosis Comments AFP TUMOR MARKER Routine 09/14/2019 11:3 5 EDT documented in this encounter Results * AFP TUMOR MARKER (09/14/2019 11:35 EDT) AFP Tumor Marker 4.0 <8.1 ng/mL 09/17/2019 12:05 EDT [facility] Comment: AFP Tumor Marker [...] Resulting Lab CHEMISTRY & BLOOD GAS ORDERABLES [facility] [address] [place] [address] documented in this encounter Visit Diagnoses Not on filedocumented in this encounter Care Teams Benzol Operator Relationship Specialty Start Date End Date Katia Blanco FNP [address] [place] [address] PCP - General 03/26/19 09/20/22 George Lou RPA [address] [facility] [address] [place] [address] PCP - General Family Medicine - Primary Care 09/21/22 documented as of this encounter
--- OUTSIDE RECORDS SUMMARY | 2024-01-17 15:36 | XMS_ITS | Encounter Summary ---
Author Organization [facility] Address [address] [place] [address] Care Team Providers Care Pinked Edge Sewing Machine Operator Name Role Phone Katia Blanco MELT SUPERINTENDANT Primary Care Provider [phone] Reason for Visit * Reason Onset Date Comments Appointment Related 12/28/2019 Encounter Details Date Type Department Care Team (Late st Contact Info) Description 12/28/2019 Telephone [facility] Interventional Radiology - [address] [address] Guicho Rosales [address] [place] [address] Appointment Related Social History Tobacco Use Types [...] 01/23/2024 10:00 EDT Office Visit [facility] General Surgery - [address] 979[address] Bon Gutierrez MD [address] [place] [address], [address] [place] [phone] 09/10/2024 10:00 EDT Appointment Shaina Bergeron [address] [phone] documented as of this encounter Visit Diagnoses Not on filedocumented in this encounter Care Teams Pinked Edge Sewing Machine Operator Relationship Specialty Start Date End Date Katia [place] [address] PCP - General 03/26/19 09/20/22 documented as of this encounter
--- OUTSIDE RECORDS SUMMARY | 2024-01-17 15:36 | XMS_ITS | Encounter Summary ---
Author Organization [facility] Address [address] [place] [address] Care Team Providers Care Rawhide Bone Roller Name Role Phone Katia Blanco Primary Care Provider [phone] Reason for Referral * Medication Prior Authorization (Routine) - Closed Specialty Diagnoses / Procedures Referred By Contact Referred To Contact Gastroenterology and Hepatology Diagnoses Hepatic cirrhosis, unspecified hepatic cirrhosis type, unspecified whether ascites present (HCC-CMS) Encephalopathy, hepatic (HCC-CMS) Brody Duran MD PhD 111 [facility] 5 [place] [address] [place] [address] [place] [address] Referral ID Status Reason Start Date Expiration Date Visits Requested Visits Authorized [id number] Closed Medication Prior Authorization 05/15/2019 1 1 [...] liver without ascites (HCC-CMS) Guicho Rosales MD [address] [place] [address] 1 [place] [address] Brody Duran MD PhD [address] [place] [phone] Referral ID Status Reason Start Date Expiration Date Visits Requested Visits Authorized [id number] Specialty Report Received Specialty Services Required 04/24/2019 1 1 Encounter Details Date Type Department Care Team (Late st Contact Info) Description 05/15/2019 14:30 EST Office Visit [facility] Gastroenterology - [place] [phone] Brody Duran MD PhD [address] [place] [phone] Hepatic cirrhosis, unspecified hepatic cirrhosis type, [...] Duran MD - 05/15/2019 0000 EST [facility] GASTROENTEROLOGY AND HEPATOLOGY PROGRESS / FOLLOWUP NOTE - 05/15/2019 [place] [address] Dear Ms Blanco: This is to let [...] disorder and suicidalideation. He was hospitalized at [facility] in the spring, with gastrointestinal bleeding secondary [...] - Brody Duran MD,PhD dn Dictation ID: [id number] cc: Guicho Rosales MD, [facility] - Radiology [address] [place] [address] Katia Blanco [facility], [address] [address] documented in this encounter Plan of Treatment Upcoming Encounters Date Type Department Care Team (Late st Contact Info) Description 01/23/2024 10:00 EDT Office Visit [facility] General Surgery - [address] [address] Bon Gutierrez MD 111 [facility], Level 5 [place] [address] 09/10/2024 10:00 EDT Appointment Shaina Bergeron Ultrasound [address] [place] [address] Scheduled Referrals Name Type Priority Associated Diagnoses Order Schedule AMB MEDICATION PRIOR AUTHORIZATION Outpatient Referral Routine Hepatic cirrhosis, unspecified hepatic cirrhosis type, unspecified whether ascites present (HCC-CMS) Encephalopathy, hepatic (HCC-CMS) Ordered: 05/15/2019 documented as of this encounter Results * (ABNORMAL) ZINC (05/15/2019 14:57 EST) Zinc, S 0.56(L) 0.66 - 1.10 mcg/mL 05/16/2019 15:58 EST [facility] Comment: ADDITIONAL INFORMATION This test was developed and its performance characteristics determined by [facility] in a manner consistent with CLIA requirements. This test has not been cleared or approved by the U.S. Food and Drug Administration. Test Performed by: [facility] [address] [place] [address] [employer] Member: Kojo Madison M.D. Ph.D.; CLIA# [id number] Blood VENOUS BLOOD / Unknown Venipuncture / Unknown 05/15/2019 14:57 EST 05/15/2019 15:24 EST Brody Duran MD PhD CHEMISTRY & BLO OD GAS ORDERABLES Performing Organization Address City/State/[facility] Co de Phone Number [facility] [address] [place] [address] * (ABNORMAL) PROTIME (05/15/2019 14:57 EST) I.N.R. 1.2(H) 0.9 - 1.1 Ratio 05/15/2019 15:50 EST [facility] Pro Time 14.2(H) 10.3 - 13.4 secs 05/15/2019 15:50 EST [facility] Blood VENOUS BLOOD / Unknown Venipuncture / Unknown 05/15/2019 14:57 EST 05/15/2019 15:24 EST Narrative [facility] - 05/15/2019 15:50 EST Moderate Intensity Coumadin INR = 2.0-3.0 Adjustments in anticoagulant therapy dose should be based on the INR and NOT on the Protime. Brody Duran MD PhD HEMATOLOGY & PF 4 ORDERABLES Performing Organization Address City/[facility]/ZIP Co de Phone Number [facility] [address] [place] [address] * (ABNORMAL) COMPLETE BLOOD COUNT (05/15/2019 14:57 [...] & PF 4 ORDERABLES Performing Organization Address City/[facility]/ZIP Co de Phone Number [facility] [address] [place] [address] * (ABNORMAL) COMPREHENSIVE METABOLIC PANEL (CMP) (05/15/2019 14:57 [facility]) Sodium 141 136 - 145 mEq/L 05/15/2019 [...] 05/15/2019 14:57 EST 05/15/2019 15:25 EST Narrative [facility] - 05/15/2019 15:53 EST 1 Brody Duran MD PhD CHEMISTRY & BLO OD GAS ORDERABLES [facility] [address] [place] [address] documented in this encounter Visit Diagnoses Diagnosis Hepatic cirrhosis, unspecified hepatic cirrhosis type, unspecified whether ascites present (HCC-CMS)- Primary Encephalopathy, hepatic (HCC-CMS) Hepatic encephalopathy documented in this encounter Care Teams Rawhide Bone Roller Relationship Specialty Start Date End Date Katia Bl[place] [address] PCP - General 03/26/19 09/20/22 documented as of this encounter
--- OUTSIDE RECORDS SUMMARY | 2024-01-17 15:36 | XMS_ITS | Encounter Summary ---
Author Organization [facility] Address [address] [place] [address] Care Team Providers Care Head Custodian Name Role Phone Laurie Wiggins MD Primary Care Provider [phone] Encounter Details Date Type Department Care Team (Late st Contact Info) Description 02/22/2019 Orders Only [facility] Interventional Radiology - [address] [address] Guicho Rosales MD [address] [place] [address], [address] [place] [phone] Social History Tobacco Use Types Packs/Day Years [...] Visit [facility] General Surgery - [address] [phone] Bon Gutierrez MD 111 [facility], Level [address] [place] [address] 09/10/2024 10:00 EDT Appointment Shaina Bergeron [address] [phone] documented as of this encounter Visit Diagnoses Not on filedocumented in this encounter Care Teams Head Custodian Relationship Specialty Start Date End Date Laurie Wiggins MD PCP - General 05/08/18 03/25/19 documented as of this encounter
--- OUTSIDE RECORDS SUMMARY | 2024-01-17 15:36 | XMS_ITS | Encounter Summary ---
Author Organization [facility] Address [address] [place] [address] Care Team Providers Care Drafting Layout Man Name Role Phone Katia Blanco IMANI Primary Care Provider [phone] Reason for Visit * Reason Onset Date Comments Appointment Related 04/06/2019 Encounter Details Date Type Department Care Team (Late st Contact Info) Description 04/06/2019 Telephone [facility] Interventional Radiology - [address] [phone] Guicho Rosales MD [address] [place] [address] 1 [place] [address] Appointment Related Social History Tobacco [...] Description 01/23/2024 10:00 EDT Office Visit [facility] General Surgery - [address] [phone] Bon Gutierrez MD [address] [place] [address], [facility], Level [address] [place] [address] 09/10/2024 10:00 EDT Appointment Shaina Bergeron Ultrasound [address] [place] [address] documented as of this encounter Visit Diagnoses Not on filedocumented in this encounter Care Teams Drafting Layout Man Relationship Specialty Start Date End Date Katia Blanco [place] [address] PCP - General 03/26/19 09/20/22 documented as of this encounter
--- OUTSIDE RECORDS SUMMARY | 2024-01-17 15:36 | XMS_ITS | Encounter Summary ---
Author Organization [facility] Address [address] [place] [address] Care Team Providers Care Legal Librarian Name Role Phone Katia Blanco AMERICAN BOARD CERTIFIED ORTHOTIST Primary Care Provider [phone] George Lou RPA Primary Care Provider [phone] Encounter Details Date Type Department Care Team (Late st Contact Info) Description 11/25/2019 Lab Requisition [facility] Pathology & Laboratory Medicine - [facility] [address] [place], [place] [phone] Outr Resulting Lab, Provider Social History Tobacco [...] Info) Description 01/23/2024 10:00 EDT Office Visit [facility] General Surgery - [facility] [address] [place], [place] [address] Bon Gutierrez MD 111 [facility], Level 5 [place] [address] 09/10/2024 10:00 EDT Appointment Shaina Mejia 0 [place] [address] documented as of this encounter Procedures Procedure Name Priority Date/Time Associated Diagnosis Comments ZZCOVID-19 TEST [facility] PCR Today 11/25/2019 6:57 EDT COVID-19 TESTING Routine 11/25/2019 6:57 EDT documented in this encounter Results * COVID-19 TEST [facility] PCR (11/25/2019 6:57 EDT) Swab ENTIRE NASOPHARYNX / Unknown 11/25/2019 6:57 EDT 11/25/2019 15:59 EDT Provider Outr Resulting Lab MICROBIOLOGY - GENERAL ORDERABLES [facility] [address] [place] [address] * COVID-19 TESTING (11/25/2019 6:57 EDT) COVID-19 rt-PCR Result Negative Negative 11/25/2019 21:27 EDT [facility] Comment: This test has [...] history, and epidemiological information. Performed on the InCytu instrument Performing Lab [facility] 11/25/2019 21:27 EDT [facility] Swab 11/25/2019 6:57 EDT 11/25/2019 15:59 EDT Provider Outr Resulting Lab MICROBIOLOGY - GENERAL ORDERABLES Performing Organization Address City/State/[facility] [[email or web address]] Co de Phone Number [facility] [address] [place] [address] documented in this encounter Visit Diagnoses Not on filedocumented in this encounter Care Teams Legal Librarian Relationship Specialty Start Date End Date Katia Blanco FNP [address] [place], [place] [address] PCP - General 03/26/19 09/20/22 George Lou RPA [address] [phone] PCP - General Family Medicine - Primary Care 09/21/22 documented as of this encounter
--- OUTSIDE RECORDS SUMMARY | 2024-01-17 15:36 | XMS_ITS | Encounter Summary ---
Author Organization [facility] Address [address] [place] [address] Care Team Providers Care Med Aide Name Role Phone Katia BlancoP Primary Care Provider [phone] Encounter Details Date Type Department Care Team ([facility] st Contact Info) Description 05/16/2019 Telephone [facility] Gastroenterology - [address] [phone] Jacob Kamara [facility] 1 [place], [place] [address] Social History Tobacco Use Types Packs/Day Years [...] rifaximin - states it is [facility] in [place]. Patient states he does not have prescription insurance. Called pharmacy, would be $650/month. Patient may be eligible for [employer] Patient Assistance Program (application available at: [email or web address]). Spoke to patient. Will mail application to [...] Office Visit [facility] General Surgery - [address] [address] Bon Gutierrez MD [address] [place] [address], Level 5 [place] [address] 09/10/2024 10:00 EDT Appointment Shaina Mejia [address] [place] [phone] documented as of this encounter Visit Diagnoses [...] times daily. Obtaining through Patient Assistance Program ([facility]), approved on 05/31/19 x1 year. Phone number for PAP: [phone] added in this encounter Care Teams Med Aide Relationship Specialty Start Date End Date Katia Blanco FNP [facility]yl [facility] [place] [address] PCP - General 03/26/19 09/20/22 documented as of this encounter
--- OUTSIDE RECORDS SUMMARY | 2024-01-17 15:36 | XMS_ITS | Encounter Summary ---
Author Organization [facility] Address [address] [place] [address] Care Team Providers Care Master Welder Name Role Phone Katia Blanco Primary Care Provider [phone] Encounter Details Date Type Department Care Team (Late st Contact Info) Description 12/10/2019 Orders Only [facility] Interventional Radiology - [address] [address] Guicho Rosales MD [address] [place] [address], Level 1 [place] [address] Cir[facility]osis ([facility] (Primary Dx) Social History Tobacco Use Types [...] Visit [facility] General Surgery - [address] [address] Bon Gutierrez MD 111 [facility], Level 5 [place] [phone] 09/10/2024 10:00 EDT Appointment Shaina Bergeron [address] [place] [address] documented as of this encounter Visit Diagnoses Diagnosis Cirrhosis (HCC-CMS)- Primary Cirrhosis of liver without mention of alcohol documented in this encounter Care Teams Master Welder Relationship Specialty Start Date End Date Katia Blanco [place] [address] PCP - General 03/26/19 09/20/22 documented as of this encounter
--- OUTSIDE RECORDS SUMMARY | 2024-01-17 15:36 | XMS_ITS | Encounter Summary ---
Author Organization [facility] Address [address] [place] [address] Care Team Providers Care Fish Hatchery Inspector Name Role Phone Katia Blanco RIDING SILKS CUSTODIAN Primary Care Provider [phone] George Lou RPA Primary Care Provider [phone] Encounter Details Date Type Department Care Team (Late st Contact Info) Description 11/02/2019 Lab Requisition [facility] Pathology & Laboratory Medicine - [facility] [address] [place], [place] [address] Outr Resulting Lab, Provider Social History Tobacco [...] [facility] General Surgery - [facility] [address] [place], [place] [address] Bon Gutierrez MD 111 [facility], Level 5 [place] [phone] 09/10/2024 10:00 EDT Appointment Shaina Bergeron Ultrasound [address] [place], [place] [address] documented as of this encounter Procedures Procedure Name Priority Date/Time Associated Diagnosis Comments ZZCOVID-19 TEST [facility] PCR Today 11/02/2019 15:50 EDT COVID-19 TESTING Routine 11/02/2019 15:5 0 EDT documented in this encounter Results * COVID-19 TEST [facility] PCR (11/02/2019 15:50 EDT) Swab ENTIRE NASOPHARYNX / Unknown 11/02/2019 15:50 EDT 11/02/2019 20:23 EDT Provider Outr Resulting Lab MICROBIOLOGY - GENERAL ORDERABLES [facility] [address] [place] [address] * COVID-19 TESTING (11/02/2019 15:50 EDT) COVID-19 rt-PCR Result Negative Negative 11/03/2019 0:[address] [facility] Comment: This test has [...] history, and epidemiological information. Performed on the Reach.lyher Fusion instrument Performing Lab [place] [facility] 11/03/2019 0:[address] [facility] Swab 11/02/2019 15:5 0 EDT 11/02/2019 20:23 EDT Provider Outr Resulting Lab MICROBIOLOGY - GENERAL ORDERABLES Performing Organization Address City/State/[facility] Co de Phone Number [facility] [address] [place] [address] documented in this encounter Visit Diagnoses Not on filedocumented in this encounter Care Teams Fish Hatchery Inspector Relationship Specialty Start Date End Date Katia Blanco FNP [address] [place], [place] [phone] PCP - General 03/26/19 09/20/22 George Lou RPA [address] [phone] PCP - General Family Medicine - Primary Care 09/21/22 documented as of this encounter
--- OUTSIDE RECORDS SUMMARY | 2024-01-17 15:36 | XMS_ITS | Encounter Summary ---
Author Organization [facility] Address [address] [place] [address] Care Team Providers Care Enrollment Processor Name Role Phone Katia Blanco SOFT WATER MECHANIC Primary Care Provider George Lou RPA Primary Care Provider [phone] Encounter Details Date Type Department Care Team (Late st Contact Info) Description 01/16/2020 Lab Requisition [facility] Pathology & Laboratory Medicine - [facility] [address] [place] [address] Sari Yusuf, DO [address] [address] [address] Randal 1 [place] [address] Duodenal ulcer, unspecified as acute [...] Visit [facility] General Surgery - [address] [address] Bon Gutierrez MD [address] [place] [address], Level 5 [place] [phone] 09/10/2024 10:00 EDT Appointment Shaina Mejia 0 [place] [address] documented as of this encounter Procedures Procedure [...] Squamous mucosa with reflux esophagitis. 01/17/2020 17:33 [facility] Attestation By the signature below, the attending physician certifies that they have 1) personally conducted a gross and/or microscopic examination of the described specimen(s), and/or personally interpreted the results of laboratory testing of the described specimen(s), and 2) personally rendered or confirmed the above diagnosis. 01/17/2020 17:33 [facility] at 1733 Clinical History Duodenal ulcers 01/17/2020 17:33 [facility] Gross Description A. Received in [...] E1. QUYNH DARBY(ASCP) 01/16/2020 18:02 01/17/2020 17:33 [facility] Performing Lab [facility] 17:33 [facility] Scanned Images 01/17/2020 17:33 [facility] Tissue ENTIRE ESOPHAGUS / Unknown [...] 15:56 EDT Sari Yusuf DO PATHOLOGY ORDERABLES [facility] [address] [place] [address] documented in this encounter Visit Diagnoses Diagnosis Duodenal ulcer, unspecified as acute or chronic, without hemorrhage or perforation documented in this encounter Care Teams Enrollment Processor Relationship Specialty Start Date End Date Katia Blanco FNP [address] [place], [place] [address] PCP - General 03/26/19 09/20/22 George Lou RPA [address] [address] PCP - General Family Medicine - Primary Care 09/21/22 documented as of this encounter
--- OUTSIDE RECORDS SUMMARY | 2024-01-17 15:36 | XMS_ITS | Encounter Summary ---
Author Organization [facility] Address [address] [place] [address] Care Team Providers Care Relay Telegrapher Name Role Phone Katia Blanco IMANI Primary Care Provider [phone] Reason for Referral * Vascular Lab (Routine) - Closed Specialty Diagnoses / Procedures Referred By Nisreenac t Referred To Contact Diagnoses Cirrhosis of liver without ascites, unspecified hepatic cirrhosis type (HCC-CMS) Procedures US HEPATOPORTAL VEIN DUPLEX Guicho Rosales MD [address] [place] [phone] Referral ID Status Reason Start Date Expiration Date Visits Re quested Visits Authorized [id number] Closed 01/01/2020 1 1 Reason for Visit * Vascular Lab (Routine) - Closed Specialty Diagnoses / Procedures Referred By Contreinaldo alcaraz Referred To Contact Diagnoses Cirrhosis of liver without ascites, unspecified hepatic cirrhosis type (HCC-CMS) Procedures US HEPATOPORTAL VEIN DUPLEX Guicho Rosales MD [address] [place] [phone] Referral ID Status Reason Start Date Expiration Date Visits Re quested Visits Authorized [id number] Closed 01/01/2020 1 1 Encounter Details Date Type Department Care Team (Latest Contact Info) Description 01/09/2020 8:07 EDT - 01/09/2020 23:59 EDT [facility] [address] [address] Cirrhosis of liver without ascites, unspecified hepatic [...] times daily. Obtaining through Patient Assistance Program ([employer]), approved on 05/31/19 x1 year. Phone number for PAP: [phone] valsartan (DIOVAN) 80 mg tablet Take 160 [...] Visit [facility] General Surgery - [facility] [address] [place], [place] [phone] Bon Gutierrez MD 111 [facility], Level 5 [place] [phone] 09/10/2024 10:00 EDT Appointment Shaina Mejia 0 [place], [place] [address] documented as of this encounter Procedures Procedure [...] (HCC-CMS) documented in this encounter Care Teams Relay Telegrapher Relationship Specialty Start Date End Date Katia Blanco [place] [address] [place] [address] PCP - General 03/26/19 09/20/22 documented as of this encounter
--- OUTSIDE RECORDS SUMMARY | 2024-01-17 15:36 | XMS_ITS | Encounter Summary ---
Author Organization [facility] Address [address] [place] [address] Care Team Providers Care Route Sales Delivery Driver Name Role Phone Katia Blanco MEDICATION TECHNICIAN Primary Care Provider [phone] Reason for Referral * Consult (Urgent) - Specialty Report Received Specialty Diagnoses / Procedures Referred By Contact Referred To Contact Gastroenterology and Hepatology Diagnoses Alcoholic cirrhosis of liver without ascites (HCC-CMS) Guicho Rosales MD [address] [place] [phone] Brody Duran MD PhD [address] [place] [phone] Referral ID Status Reason Start Date Expiration Date Visits Requested Visits Authorized [id number] Specialty Report Received Specialty Services Required 04/24/2019 [...] Info) Description 04/24/2019 10:00 EST Office Visit [facility] Interventional Radiology - [address] [address] Guicho Rosales MD [address] [place] [address] Level 1 [place] [phone] Alcoholic cirrhosis of liver without ascites (HCC-CMS) [...] 10:00 EDT Office Visit [facility] General Surgery - [address] [address] Bon Gutierrez MD 111 [facility], Level 5 [place] [address] 09/10/2024 10:00 EDT Appointment Shaina Bergeron [facility] [address] [place] [address] Scheduled Referrals Name Type Priority Associated Diagnoses [...] mouth. added in this encounter Care Teams Route Sales Delivery Driver Relationship Specialty Start Date End Date Katia Blanco FNP [facility]yl [facility] [place] [address] PCP - General 03/26/19 09/20/22 documented as of this encounter
--- OUTSIDE RECORDS SUMMARY | 2024-01-17 15:36 | XMS_ITS | Encounter Summary ---
Author Organization [facility] Address [address] [place] [address] Care Team Providers Care Materials And Processes Manager Name Role Phone Katia Blanco DISPLAY CARVER Primary Care Provider [phone] George Lou RPA Primary Care Provider [phone] Encounter Details Date Type Department Care Team (Late st Contact Info) Description 01/11/2020 Lab Requisition [facility] Pathology & Laboratory Medicine - [facility] [address] [place], [place] [phone] Outr Resulting Lab, Provider Social History Tobacco [...] 01/23/2024 10:00 EDT Office Visit [facility] General Surgery - [address] [address] Bon Gutierrez MD 111 [facility], Level 5 [place] [phone] 09/10/2024 10:00 EDT Appointment Shaina Bergeron [address] [place], [place] [phone] documented as of this encounter Procedures Procedure Name Priority Date/Time Associated Diagnosis Comments DO NOT ORDER STANDALONE - BROAD COVID TEST Today 01/11/2020 9:08 EDT COVID-19 TESTING Routine 01/11/2020 9:08 EDT documented in this encounter Results * DO NOT ORDER STANDALONE - BROAD COVID TEST (01/11/2020 9:08 EDT) COVID-19 rt-PCR Result NEGATIVE Negative 01/12/2020 18:18 EDT [facility] Comment: 2019-novel Coronavirus (2019-nCoV) not [...] in accordance with CLIA regulations, College of [employer] Pathologists (CAP) guidelines (Jun 28, 2019), and FDA guidance (Jun 09, 2019). This test is only for use under the Food and Drug Administration's Emergency Use Authorization. Swab ENTIRE NASOPHARYNX / Unknown 01/11/2020 9:08 EDT 01/11/2020 15:42 EDT Provider Outr Resulting Lab MICROBIOLOGY - GENERAL ORDERABLES [facility] [place] * COVID-19 TESTING (01/11/2020 9:08 EDT) COVID-19 rt-PCR Result NEGATIVE Negative 01/12/2020 21:09 EDT [facility] Comment: 2019-novel Coronavirus (2019-nCoV) not detected [...] in accordance with CLIA regulations, College of [employer] Pathologists (CAP) guidelines (Jun 28, 2019), and FDA guidance (Jun 09, 2019). This test is only for use under the Food and Drug Administration's Emergency Use Authorization. Performing Lab [facility] [place] 01/12/2020 21:09 EDT [facility] Swab 01/11/2020 9:08 EDT 01/11/2020 15:42 EDT Provider Outr Resulting Lab MICROBIOLOGY - GENERAL ORDERABLES [facility] [address] [place] [address] [facility] [place] documented in this encounter Visit Diagnoses Not on filedocumented in this encounter Care Teams Materials And Processes Manager Relationship Specialty Start Date End Date Katia Blanco FNP [address] [place], [place] [address] PCP - General 03/26/19 09/20/22 George Lou RPA [address] [phone] PCP - General Family Medicine - Primary Care 09/21/22 documented as of this encounter
--- OUTSIDE RECORDS SUMMARY | 2024-01-17 15:36 | XMS_ITS | Encounter Summary ---
Author Organization [facility] Address [address] [place] [address] Care Team Providers Care Medical Staff Services Manager Name Role Phone Laurie Wiggins MD Primary Care Provider [phone] Encounter Details Date Type Department Care Team (Late st Contact Info) Description 02/21/2019 Orders Only [facility] Interventional Radiology - [address] [address] Guicho Rosales MD [address] [place] [address], Level 1 [place] [phone] Social History Tobacco Use Types Packs/Day Years [...] 01/23/2024 10:00 EDT Office Visit [facility] General Surgery - [address] [phone] Bon Gutierrez MD 111 [facility], Level 5 [place] [address] 09/10/2024 10:00 EDT Appointment Shaina Bergeron [address] [phone] documented as of this encounter Visit Diagnoses Not on filedocumented in this encounter Care Teams Medical Staff Services Manager Relationship Specialty Start Date End Date Laurie Wiggins MD PCP - General 05/08/18 03/25/19 documented as of this encounter
--- OUTSIDE RECORDS SUMMARY | 2024-01-17 15:36 | XMS_ITS | Encounter Summary ---
Author Organization [facility] Address [address] [place] [address] Care Team Providers Care Dough Catcher Name Role Phone Katia Blanco IMANI Primary Care Provider [phone] Reason for Visit * Reason Onset Date Comments Appointment Related 03/26/2019 Encounter Details Date Type Department Care Team (Late st Contact Info) Description 03/26/2019 Telephone [facility] Interventional Radiology - [address] [address] Guicho Rosales MD [address] [place] [address] 1 [place] [address] Appointment Related Social History Tobacco [...] taking lots of lactalose was admitted to [facility] recently. Will call PCP for updated records and relay to RN and provider. documented in this encounter Plan of Treatment Upcoming Encounters Date Type Department Care Team (Late st Contact Info) Description 01/23/2024 10:00 EDT Office Visit [facility] General Surgery - [address] [address] Bon Gutierrez MD [address] [place] [address], Level 5 [place] [phone] 09/10/2024 10:00 EDT Appointment Shaina Mejia [address] [place] [address] documented as of this encounter Visit Diagnoses Not on filedocumented in this encounter Care Teams Dough Catcher Relationship Specialty Start Date End Date Katia Blanco [place] [address] [place] [address] PCP - General 03/26/19 09/20/22 documented as of this encounter
--- OUTSIDE RECORDS SUMMARY | 2024-01-17 15:36 | XMS_ITS | Encounter Summary ---
Author Organization [facility] Address [address] [place] [address] Care Team Providers Care Factory Helper Name Role Phone Laurie Wiggins MD Primary Care Provider [phone] Katia Blanco Primary Care Provider [phone] Reason for Visit * Reason Onset Date Comments Appointment Related 10/03/2018 Encounter Details Date Type Department Care Team (Late st Contact Info) Description 10/03/2018 Telephone [facility] Adult Neurology - [facility] [address] [place] [address] Marianna Walker MD [address] [place] [phone] Appointment Related Social History Tobacco Use Types [...] call and schedule his DFU30 with Dr. Walkre. Please assign referral once scheduled. Last visit: 08/24/2018 inpatient Next visit: MIO Watkins 10/03/2018 15:39 documented in this encounter Plan of Treatment Upcoming Encounters Date Type Department Care Team (Late st Contact Info) Description 01/23/2024 10:00 EDT Office Visit [facility] General Surgery - [address] [address] Bon Gutierrez MD 111 [facility], Level 5 [place] [phone] 09/10/2024 10:00 EDT Appointment Shaina Bergeron [address] [place], [place] [address] documented as of this encounter Visit Diagnoses Not on filedocumented in this encounter Care Teams Factory Helper Relationship Specialty Start Date End Date Laurie Wiggins MD PCP - General 05/08/18 03/25/19 Katia Blanco FNP [facility] [place] [address] PCP - General 03/26/19 09/20/22 documented as of this encounter
--- OUTSIDE RECORDS SUMMARY | 2024-01-17 15:36 | XMS_ITS | Encounter Summary ---
Author Organization [facility] Address [address] [place] [address] Care Team Providers Care Double Ending Machine Operator Name Role Phone Katia Blanco IMANI Primary Care Provider Reason for Referral * Vascular Lab (Routine) - Closed Specialty Diagnoses / Procedures Referred By [facility] Referred To Contact Diagnoses Cirrhosis of liver without ascites, unspecified hepatic cirrhosis type (HCC-CMS) Procedures US HEPATOPORTAL VEIN DUPLEX Guicho Rosales MD [address] [place] [phone] Referral ID Status Reason Start Date Expiration Date Visits Re quested Visits Authorized [id number] Closed 01/01/2020 1 1 Encounter Details Date Type Department Care Team (Late st Contact Info) Description 01/01/2020 Orders Only [facility] [place] [address] Guicho Rosales MD [address] [place] [phone] Cirrhosis of liver without ascites, unspecified [...] 01/23/2024 10:00 EDT Office Visit [facility] General Surgery - [address] [address] Bon Gutierrez MD 111 [facility], [facility], Level [address] [place] [address] 09/10/2024 10:00 EDT Appointment Shaina Bergeron Ultrasound [address] [place] [address] documented as of this encounter [...] (HCC-CMS) documented in this encounter Care Teams Double Ending Machine Operator Relationship Specialty Start Date End Date Katia Blanco [place] [place] [address] PCP - General 03/26/19 09/20/22 documented as of this encounter
--- OUTSIDE RECORDS SUMMARY | 2024-01-17 15:36 | XMS_ITS | Encounter Summary ---
Author Organization [facility] Address [address] [place] [address] Care Team Providers Care Depalletizer Operator Name Role Phone Laurie Wiggins MD Primary Care Provider +1- [phone] Reason for Visit * Reason Onset Date Comments Appointment Related 01/22/2019 Encounter Details Date Type Department Care Team (Late st Contact Info) Description 01/22/2019 Telephone [facility] Interventional Radiology - [address] [id number] Guicho Rosales MD [address] [place] [address] 1 [place] [address] Appointment Related Social History Tobacco [...] Info) Description 01/23/2024 10:00 EDT Office Visit [facility] General Surgery - [address] 917271 Bon Gutierrez MD [address] [place] [address], Level 5 [place] [phone] 09/10/2024 10:00 EDT Appointment Shaina Bergeron [address] [phone] documented as of this encounter Visit Diagnoses Not on filedocumented in this encounter Care Teams Depalletizer Operator Relationship Specialty Start Date End Date Laurie Wiggins MD PCP - General 05/08/18 03/25/19 documented as of this encounter
--- OUTSIDE RECORDS SUMMARY | 2024-01-17 15:36 | XMS_ITS | Encounter Summary ---
Author Organization [facility] Address [address] [place] [address] Care Team Providers Care Drop Press Hand Name Role Phone Katia Blanco WELL SERVICES OPERATOR Primary Care Provider [phone] Encounter Details Date Type Department Care Team ([facility] st Contact Info) Description 05/28/2019 Telephone [facility] - [facility] [address] [place], [place] [id number] Shonda Camacho [facility] 1 [place], [place] [id number] Social History Tobacco Use Types Packs/Day Years [...] encounter Miscellaneous Notes * Telephone Encounter - Sohnda Camacho - 05/28/2019 8520 EST Received patient's completed PAP application for rifaximin. Faxed to [employer]. Will call company later this week regarding status of application. Michoacano JimenezD Pharmacist Clinician - Gastroenterology/Hepatology 05/28/2019 documented in this encounter Plan of Treatment Upcoming Encounters Date Type Department Care Team (Late st Contact Info) Description 01/23/2024 10:00 EDT Office Visit [facility] General Surgery - [address] 634801 Bon Gutierrez MD [address] [place] [address], Level 5 [place] [address] 09/10/2024 10:00 EDT Appointment Shaina Bergeron [address] [place] 465630 [place], [place] [address] documented as of this encounter Visit Diagnoses Not on filedocumented in this encounter Care Teams Drop Press Hand Relationship Specialty Start Date End Date Katia Blanco [place] [address] PCP - General 03/26/19 09/20/22 documented as of this encounter
--- OUTSIDE RECORDS SUMMARY | 2024-01-17 15:36 | XMS_ITS | Encounter Summary ---
Author Organization [facility] Address [address] [place] [address] Care Team Providers Care Etl Lead Name Role Phone Laurie Wiggins MD Primary Care Provider +1- [phone] Encounter Details Date Type Department Care Team (Late st Contact Info) Description 02/03/2019 Results Only Imaging [facility] [phone] Unknown, Provider, Social History Tobacco Use Types [facility] - [address] 391761 Bon Gutierrez MD [address] [place] [address], Level 5 [place] [phone] 09/10/2024 10:00 EDT Appointment Shaina Begreron Ultrasound 0 [place] [address] Pending Results Name Type Priority Associated Diagnoses Date /Time OUTSIDE IMAGES - US BODY Imaging 02/03/2019 12:23 EDT documented as of this encounter Visit Diagnoses Not on filedocumented in this encounter Care Teams Etl Lead Relationship Specialty Start Date End Date Laurie Wiggins MD PCP - General 05/08/18 03/25/19 documented as of this encounter
--- OUTSIDE RECORDS SUMMARY | 2024-01-17 15:36 | XMS_ITS | Encounter Summary ---
Author Organization [facility] Address [address] [place] [address] Care Team Providers Care Computational Physicist Name Role Phone Laurie Wiggins MD Primary Care Provider +1- [phone] Encounter Details Date Type Department Care Team (Late st Contact Info) Description 02/22/2019 Orders Only [facility] Interventional Radiology - [address] [phone] Guicho Rosales MD [address] [place] [address], Level 1 [place] [phone] Alcoholic cirrhosis of liver without ascites (HCC-CMS) [...] Office Visit [facility] General Surgery - [address] 105171 Bon Gutierrez MD 111 [facility], Level 5 [place] [address] 09/10/2024 10:00 EDT Appointment Shaina Mejia [address] [place], [place] [phone] documented as of this encounter Visit Diagnoses Diagnosis Alcoholic cirrhosis of liver without ascites (HCC-CMS)- Primary Alcoholic cirrhosis of liver documented in this encounter Care Teams Computational Physicist Relationship Specialty Start Date End Date Laurie Wiggins MD PCP - General 05/08/18 03/25/19 documented as of this encounter
--- OUTSIDE RECORDS SUMMARY | 2024-01-17 15:37 | XMS_ITS | Encounter Summary ---
Author Organization [facility] Address [address] [place] [address] Care Team Providers Care Silk Spooler Name Role Phone Elissa Alejo PA-C Primary Care Provider +1- [phone] Reason for Visit * Reason Onset Date Comments Appointment Related 12/06/2017 Encounter Details Date Type Department Care Team (Late st Contact Info) Description 12/06/2017 Telephone [facility] Interventional Radiology - [address] 021631 Guicho Rosales MD [address] [place] [address] 1 [place] [address] Appointment Related Social History Tobacco [...] Telephone Encounter - Lizy Hull - 12/06/2017 0465 EDT Called and spoke with patient, confirmed [...] Description 01/23/2024 10:00 EDT Office Visit [facility] General Surgery - [facility] [address] [place], [place] 048691 Bon Gutierrez MD 111 [facility], Level 5 [place] [address] 09/10/2024 10:00 EDT Appointment Shaina Bergeron Ultrasound [address] [place] [address] documented as of this encounter Visit Diagnoses Not on filedocumented in this encounter Care Teams Silk Spooler Relationship Specialty Start Date End Date Elissa Alejo PA-C [address] [place] [address] [place] [phone] PCP - General 11/09/16 05/07/18 documented as of this encounter
--- OUTSIDE RECORDS SUMMARY | 2024-01-17 15:37 | XMS_ITS | Encounter Summary ---
Author Organization [facility] Address [address] [place] [address] Care Team Providers Care Wind Project Manager Name Role Phone Elissa Alejo PA-C Primary Care Provider +1- [phone] Reason for Visit * Reason Onset Date Comments Appointment Related 10/27/2017 [facility] Encounter Details Date Type Department Care Team (Late st Contact Info) Description 10/27/2017 Telephone [facility] Interventional Radiology - [address] [address] Guicho Rosales MD [address] [place] [address], [place], Level 1 [place] [address] Appointment Related (CLINIC FOLLOW UP [...] Office Visit [facility] General Surgery - [address] 567221 Bon Gutierrez MD 111 [facility], Level 5 [place] [phone] 09/10/2024 10:00 EDT Appointment Shaina Bergeron [address] [place], [place] 227796 documented as of this encounter Visit Diagnoses Not on filedocumented in this encounter Care Teams Wind Project Manager Relationship Specialty Start Date End Date Elissa Alejo PA-C [address] [facility] [place] [address] [place] [address] PCP - General 11/09/16 05/07/18 documented as of this encounter
--- OUTSIDE RECORDS SUMMARY | 2024-01-17 15:37 | XMS_ITS | Encounter Summary ---
Author Organization [facility] Address [address] [place] [address] Care Team Providers Care Ambulance Mechanic Name Role Phone Laurie Wiggins MD Primary Care Provider +1- [phone] Reason for Visit * Reason Onset Date Comments Discuss Possible Transfer 06/24/2018 Encounter Details Date Type Department Care Team (Late st Contact Info) Description 06/24/[address] [phone] Radha Gamboa MD [address] [address] Discuss Possible Transfer Social History [...] IM Hospitalist PPS: Dong Caller: Dr. 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 He is HD stable, but Hgb dropped from 13 on 06/[address] Zuniga is requesting transfer to [facility] due to need for blood transfusion in patient who is difficult to match due to multiple previous transfusions. Unfortunately, we do not have any beds available today; next bed expected to be available in [address] Zuniga is going to try [facility]. Pt is not currently accepted for transfer to [facility], but [facility] team will be in touch if further discussion is needed. Radha Gamboa MD, MPH documented in this encounter Plan of Treatment Upcoming Encounters Date Type Department Care Team (Late st Contact Info) Description 01/23/2024 10:00 EDT Office Visit [facility] General Surgery - [address] [phone] Bon Gutierrez MD 111 [facility], Level 5 [place] [address] 09/10/2024 10:00 EDT Appointment Shaina Mejia [address] [place] [address] [phone] documented as of this encounter Visit Diagnoses Not on filedocumented in this encounter Care Teams Ambulance Mechanic Relationship Specialty Start Date End Date Laurie Wiggins MD PCP - General 05/08/18 03/25/19 documented as of this encounter
--- OUTSIDE RECORDS SUMMARY | 2024-01-17 15:37 | XMS_ITS | Encounter Summary ---
Author Organization [facility] Address [address] [place] [address] Care Team Providers Care Middle School Pe Teacher Name Role Phone Laurie Wiggins MD Primary Care Provider +1- [phone] Encounter Details Date Type Department Care Team (Late st Contact Info) Description 05/10/2018 Orders Only [facility] Interventional Radiology - [address] [address] Guicho Rosales MD [address] [place] [address], Level 1 [place] [phone] Alcoholic cirrhosis of liver without ascites (HCC-CMS) [...] Visit [facility] General Surgery - [address] 941571 Bon Gutierrez MD [address] [facility], Level 5 [place] [address] 09/10/2024 10:00 EDT Appointment Shaina Mejia 0 [place], [place] [phone] documented as of this encounter Visit Diagnoses Diagnosis Alcoholic cirrhosis of liver without ascites (HCC-CMS)- Primary Alcoholic cirrhosis of liver documented in this encounter Care Teams Middle School Pe Teacher Relationship Specialty Start Date End Date Laurie Wiggins MD PCP - General 05/08/18 03/25/19 documented as of this encounter
--- OUTSIDE RECORDS SUMMARY | 2024-01-17 15:37 | XMS_ITS | Encounter Summary ---
Author Organization [facility] Address [address] [place] [address] Care Team Providers Care School Crossing Guard Supervisor Name Role Phone Elissa Alejo PA-C Primary Care Provider +1- [phone] Laurie Wiggins MD Primary Care Provider +1- [phone] Reason for Visit * Reason Onset Date Comments Appointment Related 12/30/2017 outgoing ref erral for follow up Encounter Details Date Type Department Care Team (Late st Contact Info) Description 12/30/2017 Telephone [facility] Interventional Radiology - [address] [address] Guicho Rosales MD [address] [place] [address] Level 1 [place] [address] Appointment Related (outgoing referral for [...] No 11/09/2016 Cognitive Status Response Date of [facility] ent Because of a physical, menta l, or emotional condition, does this person have serious difficulty concentrating, remembering, or making decisions? No 11/09/2016 documented as of this encounter Miscellaneous Notes * Telephone Encounter - Lizy Hull - 12/30/2017 1439 EDT Contacted office of listed PCP to refer patient back to primary for follow up care regarding TIPS According to law firm receptionist at [facility], the patient has never been seen by Elissa Alejo, and isnot an established patient in their office. Will reach out to provider and nursing staff and try to find different PCP documentation. documented in this encounter Plan of Treatment Upcoming Encounters Date Type Department Care Team (Late st Contact Info) Description 01/23/2024 10:00 EDT Office Visit [facility] General Surgery - [address] 924401 Bon Gutierrez MD 111 [facility], Level 5 [place] [address] 09/10/2024 10:00 EDT Appointment Shaina Bergeron [address] [place], [place] 7[address] documented as of this encounter Visit Diagnoses Not on filedocumented in this encounter Care Teams School Crossing Guard Supervisor Relationship Specialty Start Date End Date Elissa Alejo PA-C [address] [facility] [place] [address] MD [place] [address] PCP - General 11/09/16 05/07/18 Laurie Wiggins MD [address] [facility] [address] MD [place] [address] PCP - General 05/08/18 03/25/19 documented as of this encounter
--- OUTSIDE RECORDS SUMMARY | 2024-01-17 15:37 | XMS_ITS | Encounter Summary ---
Author Organization [facility] Address [address] [place] [address] Care Team Providers Care Forestry Technician Name Role Phone Elissa Alejo PA-C Primary Care Provider +1- [phone] Encounter Details Date Type Department Care Team (Late st Contact Info) Description 12/27/2017 Results Only Imaging [facility] [place] [address] Guicho Rosales MD [address] [place] [address], Level 1 [place] [address] Social History Tobacco Use Types Packs/Day Years [...] Description 01/23/2024 10:00 EDT Office Visit [facility] General Surgery - [address] 428401 Bon Gutierrez MD 111 [facility], Level 5 [place] [address] 09/10/2024 10:00 EDT Appointment Shaina Mejia 0 [place], [place] 601786 documented as of this encounter Visit Diagnoses Not on filedocumented in this encounter Care Teams Forestry Technician Relationship Specialty Start Date End Date Elissa Alejo, PAMehreenC [address] [place] [address] MD [place] [address] PCP - General 11/09/16 05/07/18 documented as of this encounter
--- OUTSIDE RECORDS SUMMARY | 2024-01-17 15:37 | XMS_ITS | Encounter Summary ---
Author Organization [facility] Address [address] [place] [address] Care Team Providers Care Special Events Director Name Role Phone Laurie Wiggins MD Primary Care Provider +1- [phone] Reason for Visit * Reason Onset Date Comments Appointment Related 06/14/2018 follow up Encounter Details Date Type Department Care Team (Late st Contact Info) Description 06/14/2018 Telephone [facility] Interventional Radiology - [address] 368591 Guicho Rosales MD [address] [place] [address] 1 [place] [address] Appointment Related (follow up ) [...] 01/23/2024 10:00 EDT Office Visit [facility] General Surgery - [address] 411741 Bon Gutierrez MD [address] [place] [address], Level 5 [place] [address] 09/10/2024 10:00 EDT Appointment Shaina Bergeron Ultrasound [address] [place] [address] documented as of this encounter Visit Diagnoses Not on filedocumented in this encounter Care Teams Special Events Director Relationship Specialty Start Date End Date Laurie Wiggins MD PCP - General 05/08/18 03/25/19 documented as of this encounter
--- OUTSIDE RECORDS SUMMARY | 2024-01-17 15:37 | XMS_ITS | Encounter Summary ---
Author Organization [facility] Address [address] [place] [address] Care Team Providers Care Salad Counter Attendant Name Role Phone Elissa Alejo PA-C Primary Care Provider +1 [phone] Reason for Visit * Reason Onset Date Comments Patient Information Update 01/02/2018 Encounter Details Date Type Department Care Team (Late st Contact Info) Description 01/02/2018 Telephone [facility] Interventional Radiology - [facility] [address] [place] [address] Melissa Munroe, RN [address] [place] [address] Patient Information Update Social History Tobacco Use [...] [facility] General Surgery - [address] 661551 Bon Gutierrez MD [address] [place] [address], Level 5 [place] [address] 09/10/2024 10:00 EDT Appointment Shaina Bergeron [address] [phone] documented as of this encounter Visit Diagnoses Not on filedocumented in this encounter Care Teams Salad Counter Attendant Relationship Specialty Start Date End Date Elissa Alejo PA-C [address] [place] [address] MD [place] [phone] PCP - General 11/09/16 05/07/18 documented as of this encounter
--- OUTSIDE RECORDS SUMMARY | 2024-01-17 15:37 | XMS_ITS | Encounter Summary ---
Author Organization [facility] Address [address] [place] 689731 Care Team Providers Care Bindery Manager Name Role Phone Elissa Alejo PA-C Primary Care Provider +1 [phone] Reason for Visit * Reason Onset Date Comments Appointment Related 12/06/2017 Encounter Details Date Type Department Care Team (Late st Contact Info) Description 12/06/2017 Telephone [facility] Interventional Radiology - [facility] [address] [place] [address] Melissa Munroe, RN [address] [place] [address] Appointment Related Social History Tobacco Use Types [...] 01/23/2024 10:00 EDT Office Visit [facility] General Surgery - [address] 9477[address] Bon Gutierrez MD 111 [facility], Level 5 [place] [address] 09/10/2024 10:00 EDT Appointment Shaina Bergeron [address] 844616 documented as of this encounter Visit Diagnoses Not on filedocumented in this encounter Care Teams Bindery Manager Relationship Specialty Start Date End Date Elissa Alejo PA-C [address] [facility] [place] [address] MD [place] [phone] PCP - General 11/09/16 05/07/18 documented as of this encounter
--- OUTSIDE RECORDS SUMMARY | 2024-01-17 15:37 | XMS_ITS | Encounter Summary ---
Author Organization [facility] Address [address] [place] [address] Care Team Providers Care Finish Saw Operator Name Role Phone Laurie Wiggins MD Primary Care Provider +1- [phone] Reason for Visit * Reason Comments Follow-up Encounter Details Date Type Department Care Team (Late st Contact Info) Description 07/18/2018 10:15 EDT Office Visit [facility] Interventional Radiology - [address] [phone] Guicho Rosales MD [address] [place] [address] 1 [place] [address] Alcoholic cirrhosis of liver without [...] 2013 and has recently moved back to [place]. He was recently hospitalized several weeks ago for a bleeding duodenal ulcer that was successfully embolized (GDA) by Dr. Castro. Over the past 18 months, he has been hospitalized 5 times for rectal bleeding, but this last hospitalization seems to have been the only time the bleeding duodenal ulcer was diagnosed. 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 He feels good and is without complaint. [...] Description 01/23/2024 10:00 EDT Office Visit [facility] General Surgery - [facility] [address] [place], [place] 658781 Bon Gutierrez MD 111 [facility], Level 5 [place] [address] 09/10/2024 10:00 EDT Appointment Shaian Bergeron [address] [address] documented as of this encounter Visit Diagnoses [...] 09/12/2018 added in this encounter Care Teams Finish Saw Operator Relationship Specialty Start Date End Date Laurie Wiggins MD PCP - General 05/08/18 03/25/19 documented as of this encounter
--- OUTSIDE RECORDS SUMMARY | 2024-01-17 15:37 | XMS_ITS | Encounter Summary ---
Author Organization [facility] Address [address] [place] [address] Care Team Providers Care Knitting Machine Tender Name Role Phone Elissa Alejo PA-C Primary Care Provider +1 [phone] Reason for Visit * Reason Onset Date Comments Appointment Related 11/02/2017 Encounter Details Date Type Department Care Team (Late st Contact Info) Description 11/02/2017 Telephone [facility] Interventional Radiology - [facility] 111 [place] [address] Melissa Munroe, RN [address] [place] [address] Appointment Related Social History Tobacco Use Types [...] Office Visit [facility] General Surgery - [address] 239351 Bon Gutierrez MD 111 [facility], Level 5 [place] [address] 09/10/2024 10:00 EDT Appointment Shaina Bergeron [address] [place], [place] 064826 documented as of this encounter Visit Diagnoses Not on filedocumented in this encounter Care Teams Knitting Machine Tender Relationship Specialty Start Date End Date Elissa Alejo PAMehreenC [address] [place] [address] MD [place] [phone] PCP - General 11/09/16 05/07/18 documented as of this encounter
--- OUTSIDE RECORDS SUMMARY | 2024-01-17 15:37 | XMS_ITS | Encounter Summary ---
Author Organization [facility] Address [address] [place] [address] Care Team Providers Care Fund Accountant Name Role Phone Laurie Manzo MD Primary Care Provider [phone]- [phone] Reason for Referral * Follow Up (Routine) - Receiving Office to Obtain Authorization Specialty Diagnoses / Procedures Referred By Contreinaldo t Referred To Contact Diagnoses Duodenal ulcer with hemorrhage Janie Sanabria MD [address] [place] [address] DR PICKARD [address] [place] [id number] Referral ID Status Reason Start Date Expiration Date Visits Requested Visits Authorized [id number] Receiving Office to Obtain Authorization Continuity of Care 9 1 1 Question Answer Reason for Request: Hospital follow up Expected Discharge Date (Inpatient Only): 06/30/2018 Encounter Details Date Type Department Care Team (Late st Contact Info) Description 06/24/2018 15:44 EDT - 07/02/2018 13:41 EDT Hospital Encounter [facility] Neurosurgery Unit [address] [place] [address] Radha Gamboa MD [address] [address] Haile Zuniga MD [address] [address] Catia Elizondo MD [address] [address] Tl Hylton DO [address] [address] Hepatic cirrhosis, unspecified hepatic cirrhosis [...] hepatitis C, and pancreatitis who presented to [facility] for melena and lightheadedness. His hemoglobin had dropped to 8 from 14. He had aCT angiogram that did not show areas of active bleeding. He was transfused with 2 units of PRBC, but due to his prior transfusions, he was difficult to match and had to be transferred to [facility]. On arrival, GI was consulted and he [...] Established Patient Visit with Guicho Rosales MD [facility] Interventional Radiology - [facility] (--) [address] [place] [address], 3rd Floor [facility] [address] Follow-up appointments and procedures Amb Consult/Follow Up [...] attestation - Tl Hylton DO - 07/18/2018 3517 EDT ATTENDING ATTESTATION: Date of service: 07/02/2018 I interviewed and examined the patient, reviewed pertinent labs, events, and notes as well as answered questions related to discharge. I agree with the findings and plan of care as documented above, with additions in blue. I personally spent <30 minutes counseling and preparing the patient for discharge and coordinating outpatient follow-up. Tl Hylton DO [facility] Inpatient Service 07/18/2018 16:57 documented in [...] hepatitis C, pancreatitis who was transferred from [facility] for melena requiring blood transfusions and [...] TIPS. Doppler with patent TIPS. 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 S/p TIPS. Doppler with patent TIPS. - Plan to resume WINTER INTERN lactulose prior to discharge, rifaximin while actively having melena - Hold nadolol for now given bleeding - Follow up quant Hep C - undetected - will need q6 month RUQ US, CBC, CMP, INR Chronic medications - WINTER INTERN buproprion - Hold WINTER INTERN lisonpril VTE Prophylaxis: Holding in setting of GI bleed Discharge Plan: Likely home in coming days pending course and ongoing bleeding Consults: GI and IR consulted Zac Whitaker MD Internal Medicine PGY-2 Pager: [phone] Attending Attestation I interviewed and examined the [...] Radiology Procedure Nursing Note Report received from [facility] patient has received Versed 2.5 mg and [...] hepatitis C, pancreatitis who was transferred from [facility] for melena requiring blood transfusions and [...] Acetaminophen PRN - Reduce oxycodone to 2.5mg [id number] for throat pain after EGD Decompensated cirrhosis [...] US, CBC, CMP, INR Chronic medications - WINTER INTERN buproprion - Hold WINTER INTERN lisonpril VTE Prophylaxis: Holding in setting of [...] Carballo : 1955, AGE: 63 y.o. Room: [place] [address] Alma Carballo who is listed as Christianity has received a visit from the Spiritual Care Departmenton 06/28/2018. Need/Assessment: ?? Patient shared his recent medical journey, which had brought him to [facility] from [facility], involving a serious GI bleed and need to receive several blood transfusions. ?? Patient describes himself as being alone. He recently moved to [facility] from [place] on his own. Patient says close family members have all and that he is on his own. Patient expresses thathe had not had time to make connections or community in his new town prior to this medical event - he's only moved in 2 weeks before. ?? Patient reports looking forward to connecting with a voodoo in his new community (it's better than meeting people in a bar). Patient grew up Mennonite, but no longer identifies with that william (you have to work for your salvation, which patient does not affirm), and seeks an independent Scientology voodoo. Patient declined doormaker's offer of prayer. ?? Patient takes mila in fishing, [place] Intervention: ?? Child Therapist offered compassionate presence and reflective listening. ?? Child Therapist explored patient's spiritual background and sources of support and mila. Outcome: ?? Patient expressed appreciation for visit; no need for follow-up visit before expected discharge.(Child Therapist left brochure should patient want to contact [facility]). Plan of Action: X No Follow up necessary - Needs met Continued Family Support Continued Support from Child Therapist following patient Make a Referral to: Continued [...] Compassionate presence Chaplain Jc Stanford 131 Phone [phone] Spiritual Care is available 24 hours a day. Chaplains are available 24 hours a day. For routine consults please call and leave a message with the Spiritual Care Office ([phone]) and patients will be seen within 24 hours. For all emergent consults page the Alevism or Interfaith on-call Child Therapist through PAS ([phone]). * Ming Cottrell MD, MD - 06/28/2018 [...] Cottrell MD GI and Hepatology Fellow Pager [phone] * Minda Neumann RD - 06/28/2018 0914 EDT Brief Nutrition Contact Note: Patient is day #5 of minimal nutrition (has been NPO/clear liquids only since admission with one week of decreased PO intake WINTER INTERN), fluid intake has been minimal per review [...] course. 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 A small [...] hepatitis C, pancreatitis who was transferred from [facility] for melena requiring blood transfusions and [...] for now given bleeding Chronic medications - WINTER INTERN buproprion - Hold WINTER INTERN lisonpril VTE Prophylaxis: Holding in setting of [...] Type of Healthcare Directive: Durable power of manager pet for health care, Health care treatment directive Copy in Chart: Yes, previous copy on file @ [facility] DIRECTIVES FOR FINANCES: Directive For Finances: No TRANSPORTATION: Transportation: Self(Patient drives and tells that he has a brand new car) CULTURAL, CONGREGATION and/or LANGUAGE factors affecting health care/discharge planning: [...] DME Provider: not at this time Pharmacy: [id number] - [place], [place] - [address] [facility] [address] [facility] - [place], [place] - [address] [place] [address] Home Health: Not at this time Other: Patient requests a doctor letter verifying dates of hospitalization for his employer at discharge. POST HOSPITAL TRANSITION PLAN: Home to self care. Patient is independent with ADL's and IADL's prior to admission. Patient moved to [place] one month ago and has not totally [...] hepatitis C, pancreatitis who was transferred from [facility] for melena requiring blood transfusions and [...] for now given bleeding Chronic medications - WINTER INTERN buproprion - Hold WINTER INTERN lisonpril VTE Prophylaxis: Holding in setting of [...] Events: - admitted to medicine, transfer from [facility] - Oxycodone for pain - s/p [...] banding, TIPS procedure, pancreatitis who presented to [facility] with black stools transferred to [facility] for blood transfusions and further management. He [...] banding, TIPS procedure, pancreatitis who presented to [facility] ([facility]) with black stools transferred to [facility] for blood transfusions and further management. Has [...] Last BM 1 hour before presenting to [facility]. No nsaid use recently. Had one [...] in a home by himself, works at [employer]. Does not smoke, not EtoH use. Moved from [place] to [place] last month. Works at [employer] [facility], patient found to have hgb drop from [...] Imaging CTA Abdomen Pelvis with Contrast at [facility] - TIPS intact - no acute abnormalities noted Assessment Alma Carballo is a 63 y.o. male with a PMHx of hepatitis C, decompensated cirrhosis complicated by esophageal varices s/p banding, TIPS procedure, pancreatitis who presented to [facility] with black stools transferred to [facility] for blood transfusions and further management. Plan [...] banding, TIPS procedure, pancreatitis who presented to [facility] ([facility]) with black stools transferred to [facility] for blood transfusions and further management. Has [...] Last BM 1 hour before presenting to [facility]. No nsaid use recently. Had one [...] in a home by himself, works at [employer]. Does not smoke, not EtoH use. Moved from [place] to [place] last month. Works at [employer] [facility], patient found to have hgb drop from [...] Imaging CTA Abdomen Pelvis with Contrast at [facility] - TIPS intact - no acute abnormalities noted Assessment Alma Carballo is a 63 y.o. male with a PMHx of hepatitis C, decompensated cirrhosis complicated by esophageal varices s/p banding, TIPS procedure, pancreatitis who presented to [facility] with black stools transferred to [facility] for blood transfusions and further management. Plan [...] Note Procedure: GDA embolization Date Performed: 06/30/2018 Radiologist/Capacity Analyst(s): Magi/Gloria Sedation/Anesthesia: Versed/Fentanyl/Lidocaine Time Out: A time-out [...] file Gets together: Not on file Attends uatsdin service: Not on file Active member of [...] Curt Blanco MD Gastroenterology & Hepatology Fellow #[id number] * Gera Nguyễn MD, MD - 06/25/2018 0450 EDT Red Blood Cell Transfusion Reaction-Pathology Patient: Alma Carballo Transfusion Initiated (date/time): 06/25/18 at 01:07 Transfusion Terminated (date/time): 06/25/18 at 04:15 Blood Bank Notified (date/time): 06/25/18 at 04:45 Notified By: Phone call from Dr. Rabia Adorno Blood Product Detail: Red Blood Cells Donor/Unit Number: [id number] Amount Transfused: 211 mL Reaction Description: blood pressure change from 108/52 before transfusion to 86/43 Laboratory Investigation Laboratory workup? No - Per Dr. Arizmendi and Dr. Nguyễn Pre-transfusion records reviewed? Yes Clerical/computer systems consultant errors found? No Post-transfusion blood specimen: Not [...] * Plan of Care - Mary Ann Barry RN - 06/29/2018 1410 EDT Problem: Daily [...] finished without S/Sof reaction. Unit number was [id number]. Will continue to monitor. documented in this encounter Plan of Treatment Upcoming Encounters Date Type Department Care Team (Late st Contact Info) Description 01/23/2024 10:00 EDT Office Visit [facility] General Surgery - [address] [address] Bon Gutierrez MD 111 [facility], [address] [place] [address] 09/10/2024 10:00 EDT Appointment [facility] Ul[facility] [address] [place] [address] Pending Results Name Type Priority Associated Diagnoses [...] EDT) 07/05/2018 10:2 4 EDT Scan 2 Services Rep LAB INFO SERVICE AN D SUPPORT & PHONE RESULT * ECG REPORT - SCANNED (07/05/2018 10:24 EDT) 07/05/2018 10:2 4 EDT Scan 2 Services Rep PROCEDURE/MINOR TY GICAL ORDERABLES * (ABNORMAL) COMPLETE BLOOD COUNT (07/02/2018 5:52 EDT) WBC 3.70(L) 4.0 - 10.4 K/cmm 07/02/2018 6:17 [facility] RBC 2.48(L) 4.36 - 5.78 M/cmm 07/02/2018 6:17 [facility] Hemoglobin 7.9(L) 13.8 - 17.3 gm/dl 07/02/2018 6:17 [facility] HCT 22.3(L) 39.5 - 50.2 % 07/02/2018 6:17 [facility] MCV 90 81 - 95 fl 07/02/2018 6:17 [facility] MCH 31.9 27.6 - 33.0 pg 07/02/2018 6:17 [facility] MCHC 35.4 32.8 - 36.4 gm/dl 07/02/2018 6:17 [facility] RDW-CV 15.3(H) <14.2 % 07/02/2018 6:17 [facility] RDW-SD 49.6(H) <46.0 fl 07/02/2018 6:17 [facility] PLT 112(L) 141 - 377 K/cmm 07/02/2018 6:17 [facility] MPV 9.0(L) 9.5 - 12.7 fl 07/02/2018 6:17 [facility] Blood specimen (specimen) BLOOD SPECIMEN / Unknown 07/02/2018 5:52 EDT 07/02/2018 6:10 EDT Zac Whitaker MD HEMATOLOGY & PF4 OR DERABLES Performing Organization Address City/State/[facility] Co de Phone Number [facility] [address] [place] [address] * (ABNORMAL) COMPLETE BLOOD COUNT (07/01/2018 6:13 EDT) WBC 4.52 4.0 - 10.4 K/cmm 07/01/2018 6:37 [facility] RBC 2.42(L) 4.36 - 5.78 M/cmm 07/01/2018 6:37 [facility] Hemoglobin 7.6(L) 13.8 - 17.3 gm/dl 07/01/2018 6:37 [facility] HCT 21.9(L) 39.5 - 50.2 % 07/01/2018 6:37 [facility] MCV 91 81 - 95 fl 07/01/2018 6:37 [facility] MCH 31.4 27.6 - 33.0 pg 07/01/2018 6:37 [facility] MCHC 34.7 32.8 - 36.4 gm/dl 07/01/2018 6:37 [facility] RDW-CV 15.6(H) <14.2 % 07/01/2018 6:37 EDT [facility] RDW-SD 50.3(H) <46.0 fl 07/01/2018 6:37 EDT [facility] PLT 114(L) 141 - 377 K/cmm 07/01/2018 6:37 EDT [facility] MPV 8.9(L) 9.5 - 12.7 fl 07/01/2018 6:37 EDT [facility] Blood specimen (specimen) BLOOD SPECIMEN / Unknown 07/01/2018 6:13 EDT 07/01/2018 6:28 EDT Zac Whitaker MD HEMATOLOGY & PF4 OR DERABLES Performing Organization Address City/State/[facility] Co de Phone Number [facility] [address] [place] [address] * IR EMBOLIZATION (06/30/2018 13:30 EDT) Anatomical [...] to gain percutaneous access into the right COMPUTER NUMERIC CONTROL SETTER via a micropuncture kit. The micropuncture Sheath was exchanged over a guidewire for a 5 Mauritanian access sheath. A SOS-35 Mauritanian catheter was negotiated into the abdominal aorta [...] to gain percutaneous access into the right COMPUTER NUMERIC CONTROL SETTER via a micropuncture kit. The micropuncture Sheath was exchanged over a guidewire for a 5 Mauritanian access sheath. A SOS-35 Mauritanian catheter was negotiated into the abdominal aorta [...] added CBD WITH DIFF 06/30/2018 11:27 T [facility] Number for problems [id number] 06/30/2018 11:35 T [facility] Accession number DIF [id number] 06/30/2018 11:35 EDT [facility] TOPOGRAPHY UNKNOWN / Unknown 06/30/2018 11:30 EDT 06/30/2018 11:32 EDT Zac Whitaker MD HEMATOLOGY & PF4 OR DERABLES [facility] [address] [place] [address] * (ABNORMAL) DIFFERENTIAL (06/30/2018 7:39 EDT) % Neutrophils 64.0 % 06/30/2018 11:51 EDT [facility] % Lymphocytes 20.4 % 06/30/2018 11:51 EDT [facility] % Monocytes 11.2 % 06/30/2018 [facility] % Eosinophils 3.4 % 06/30/2018 11:51 [facility] % Basophils 0.3 % 06/30/2018 11:51 [facility] % Immature Grans 0.7 % 06/30/2018 11:51 [facility] ABS Neutrophils 1.86(L) 2.20 - 8.85 K/cmm 06/30/2018 11:51 [facility] ABS Lymphs 0.59(L) 1.09 - 3.30 K/cmm 06/30/2018 11:51 [facility] ABS Monocytes 0.33 0.1 - 0.8 K/cmm 06/30/2018 11:51 [facility] ABS Eosinophils 0.10 0.03 - 0.61 K/cmm 06/30/2018 11:51 [facility] ABS Basophils 0.01 0.01 - 0.11 K/cmm 06/30/2018 11:51 [facility] ABS Immature Grans 0.02 0 - 0.06 K/cmm 06/30/2018 11:51 [facility] Type of Diff: Automated 06/30/2018 11:51 [facility] BLOOD SPECIMEN / Unknown 06/30/2018 7:39 EDT 06/30/2018 8:11 EDT Terrie Givens MD HEMATOLOGY & PF4 ORD ERABLES [facility] [address] [place] [phone] * (ABNORMAL) COMPLETE BLOOD COUNT (06/30/2018 7:39 EDT) WBC 2.91(L) 4.0 - 10.4 K/cmm 06/30/2018 8:17 [facility] RBC 2.44(L) 4.36 - 5.78 M/cmm 06/30/2018 8:17 [facility] Hemoglobin 7.8(L) 13.8 - 17.3 gm/dl 06/30/2018 8:17 [facility] HCT 22.4(L) 39.5 - 50.2 % 06/30/2018 8:17 [facility] MCV 92 81 - 95 fl 06/30/2018 8:17 [facility] MCH 32.0 27.6 - 33.0 pg 06/30/2018 8:17 [facility] MCHC 34.8 32.8 - 36.4 gm/dl 06/30/2018 8:17 [facility] RDW-CV 15.9(H) <14.2 % 06/30/2018 8:17 [facility] RDW-SD 51.8(H) <46.0 fl 06/30/2018 8:17 [facility] PLT 104(L) 141 - 377 K/cmm 06/30/2018 8:17 [facility] MPV 9.3(L) 9.5 - 12.7 fl 06/30/2018 8:17 [facility] Blood specimen (specimen) BLOOD SPECIMEN / Unknown 06/30/2018 7:39 EDT 06/30/2018 8:11 EDT Zac Whitaker MD HEMATOLOGY & PF4 OR DERABLES [facility] [address] [place] [address] * CREATININE (06/30/2018 7:39 EDT) Creatinine 0.66 0.66 - 1.25 mg/dl 06/30/2018 8:44 T [facility] GFR, Calculated 101 >60 ml/min/1.7 3m2 06/30/2018 8:44 [facility] Comment: eGFR calculated using CKD-EPI equation for non Americans. Multiply eGFR by 1.16 for Americans. Blood specimen (specimen) BLOOD SPECIMEN / Unknown 06/30/2018 7:39 EDT 06/30/2018 8:11 EDT Terrie Givens MD CHEMISTRY & BLOOD GA S ORDERABLES Performing Organization Address City/[facility] Co de Phone Number [facility] [address] [place] [address] * ELECTROLYTES (06/30/2018 7:39 EDT) Sodium 136 136 - 145 mEq/L 06/30/2018 8:44 EDT [facility] Potassium 4.2 3.5 - 5.0 mEq/L 06/30/2018 8:44 EDT [facility] Chloride 106 96 - 110 mEq/L 06/30/2018 8:44 EDT [facility] CO2 28 22 - 32 mEq/L 06/30/2018 8:44 EDT [facility] Blood specimen (specimen) BLOOD SPECIMEN / Unknown 06/30/2018 7:39 EDT 06/30/2018 8:11 EDT Terrie Givens MD CHEMISTRY & BLOOD GA S ORDERABLES Performing Organization Address [facility] Co de Phone Number [facility] [address] [place] [address] * CT ANGIO ABDOMEN AND PELVIS W/WO [...] 3.68(L) 4.0 - 10.4 K/cmm 06/29/2018 8:16 [facility] RBC 2.35(L) 4.36 - 5.78 M/cmm 06/29/2018 8:16 [facility] Hemoglobin 7.7(L) 13.8 - 17.3 gm/dl 06/29/2018 8:16 [facility] HCT 21.5(L) 39.5 - 50.2 % 06/29/2018 8:16 [facility] MCV 92 81 - 95 fl 06/29/2018 8:16 [facility] MCH 32.8 27.6 - 33.0 pg 06/29/2018 8:16 [facility] MCHC 35.8 32.8 - 36.4 gm/dl 06/29/2018 8:16 [facility] RDW-CV 16.3(H) <14.2 % 06/29/2018 8:16 [facility] RDW-SD 50.9(H) <46.0 fl 06/29/2018 8:16 [facility] PLT 108(L) 141 - 377 K/cmm 06/29/2018 8:16 [facility] MPV 9.1(L) 9.5 - 12.7 fl 06/29/2018 8:16 [facility] Blood specimen (specimen) BLOOD SPECIMEN / Unknown 06/29/2018 7:19 EDT 06/29/2018 8:05 EDT Zac Whitaker MD HEMATOLOGY & PF4 OR DERABLES [facility] [address] [place] [address] * CREATININE (06/29/2018 7:19 EDT) Creatinine 0.73 0.66 - 1.25 mg/dl 06/29/2018 8:23 EDT [facility] GFR, Calculated 97 >60 ml/min/1.7 3m2 06/29/2018 8:23 T [facility] Comment: eGFR calculated using CKD-EPI equation for non Americans. Multiply eGFR by 1.16 for Americans. Blood specimen (specimen) BLOOD SPECIMEN / Unknown 06/29/2018 7:19 EDT 06/29/2018 8:05 EDT Terrie Givens MD CHEMISTRY & BLOOD GA S ORDERABLES Performing Organization Address City/[facility] Co de Phone Number [facility] [address] [place] [address] * ELECTROLYTES (06/29/2018 7:19 EDT) Sodium 136 136 - 145 mEq/L 06/29/2018 8:23 T [facility] Potassium 4.5 3.5 - 5.0 mEq/L 06/29/2018 8:23 [facility] Chloride 104 96 - 110 mEq/L 06/29/2018 8:23 [facility] CO2 28 22 - 32 mEq/L 06/29/2018 8:23 T [facility] Blood specimen (specimen) BLOOD SPECIMEN / Unknown 06/29/2018 7:19 EDT 06/29/2018 8:05 EDT Terrie Givens MD CHEMISTRY & BLOOD GA S ORDERABLES Performing Organization Address City/[facility]/ZIP Co de Phone Number [facility] [address] [place] [address] * (ABNORMAL) COMPLETE BLOOD COUNT (06/28/2018 22:25 EDT) WBC 3.18(L) 4.0 - 10.4 K/cmm 06/28/2018 23:03 EDT [facility] RBC 2.29(L) 4.36 - 5.78 M/cmm 06/28/2018 23:03 [facility] [facility] Hemoglobin 7.5(L) 13.8 - 17.3 gm/dl 06/28/2018 23:03 [facility] HCT 21.5(L) 39.5 - 50.2 % 06/28/2018 23:03 [facility] MCV 94 81 - 95 fl 06/28/2018 23:03 [facility] MCH 32.8 27.6 - 33.0 pg 06/28/2018 23:03 [facility] MCHC 34.9 32.8 - 36.4 gm/dl 06/28/2018 23:03 [facility] RDW-CV 16.6(H) <14.2 % 06/28/2018 23:03 [facility] RDW-SD 50.8(H) <46.0 fl 06/28/2018 23:03 [facility] Anisocytosis 1+ 06/28/2018 23:03 [facility] PLT 103(L) 141 - 377 K/cmm 06/28/2018 23:03 [facility] MPV 9.3(L) 9.5 - 12.7 fl 06/28/2018 23:03 [facility] Nucleated RBC's 1 /100 WBC'S 9 23:03 [facility] Blood specimen (specimen) BLOOD SPECIMEN / Unknown 06/28/2018 22:25 EDT 06/28/2018 22:30 EDT Zac Whitaker MD HEMATOLOGY & PF4 OR DERABLES [facility] [address] [place] [address] * (ABNORMAL) COMPLETE BLOOD COUNT (06/28/2018 6:56 EDT) WBC 3.38(L) 4.0 - 10.4 K/cmm 06/28/2018 7:25 [facility] RBC 2.35(L) 4.36 - 5.78 M/cmm 06/28/2018 7:25 [facility] Hemoglobin 7.6(L) 13.8 - 17.3 gm/dl 06/28/2018 7:25 [facility] HCT 21.5(L) 39.5 - 50.2 % 06/28/2018 7:25 [facility] MCV 92 81 - 95 fl 06/28/2018 7:25 [facility] MCH 32.3 27.6 - 33.0 pg 06/28/2018 7:25 [facility] MCHC 35.3 32.8 - 36.4 gm/dl 06/28/2018 7:25 [facility] RDW-CV 16.3(H) <14.2 % 06/28/2018 7:25 [facility] RDW-SD 48.7(H) <46.0 fl 06/28/2018 7:25 [facility] PLT 96(L) 141 - 377 K/cmm 06/28/2018 7:25 [facility] MPV 9.2(L) 9.5 - 12.7 fl 06/28/2018 7:25 [facility] Nucleated RBC's 1 /100 WBC'S 9 7:25 [facility] Blood specimen (specimen) BLOOD SPECIMEN / Unknown 06/28/2018 6:56 EDT 06/28/2018 7:13 EDT Terrie Givens MD HEMATOLOGY & PF4 ORD ERABLES [facility] [address] [place] [address] * CREATININE (06/28/2018 6:56 EDT) Creatinine 0.86 0.66 - 1.25 mg/dl 06/28/2018 7:41 [facility] GFR, Calculated 91 >60 ml/min/1.7 3m2 06/28/2018 7:41 [facility] Comment: eGFR calculated using CKD-EPI equation for non Americans. Multiply eGFR by 1.16 for Americans. Blood specimen (specimen) BLOOD SPECIMEN / Unknown 06/28/2018 6:56 EDT 06/28/2018 7:13 EDT Terrie Givens MD CHEMISTRY & BLOOD GA S ORDERABLES Performing Organization Address [facility] de Phone Number [facility] [address] [place] [address] * (ABNORMAL) ELECTROLYTES (06/28/2018 6:56 EDT) Pathologist [facility] Sodium 135(L) 136 - 145 mEq/L 06/28/2018 7:41 EDT [facility] Potassium 3.9 3.5 - 5.0 mEq/L 06/28/2018 7:41 EDT [facility] Chloride 106 96 - 110 mEq/L 06/28/2018 7:41 EDT [facility] CO2 28 22 - 32 mEq/L 06/28/2018 7:41 EDT [facility] Blood specimen (specimen) BLOOD SPECIMEN / Unknown 06/28/2018 6:56 EDT 06/28/2018 7:13 EDT Terrie Givens MD CHEMISTRY & BLOOD GA S ORDERABLES Performing Organization Address [facility] de Phone Number [facility] [address] [place] [address] * HCV RNA DETECT QUANT (06/28/2018 6:56 EDT) [facility] HCV RNA Detect Quant Undetected Undetected IU/mL 06/29/2018 16:21 EDT [facility] Comment: Reference Range: ??Undetected The quantification range of this assay is 15 IU/mL to 100,000,000 IU/mL. Testing was performed by the [employer] Ampliprep/Mili TaqMan HCV v2.0 ([employer] Blood specimen (specimen) BLOOD SPECIMEN / Unknown 06/28/2018 6:56 EDT 06/28/2018 7:13 EDT Zac Whitaker MD CHEMISTRY & BLOOD G ORDERABLES [facility] [address] [place] [address] * (ABNORMAL) COMPLETE BLOOD COUNT (06/27/2018 17:53 EDT) WBC 3.30(L) 4.0 - 10.4 K/cmm 06/27/2018 18:32 [facility] RBC 2.31(L) 4.36 - 5.78 M/cmm 06/27/2018 18:32 [facility] Hemoglobin 7.5(L) 13.8 - 17.3 gm/dl 06/27/2018 18:32 [facility] HCT 21.5(L) 39.5 - 50.2 % 06/27/2018 18:32 [facility] MCV 93 81 - 95 fl 06/27/2018 18:32 [facility] MCH 32.5 27.6 - 33.0 pg 06/27/2018 18:32 [facility] MCHC 34.9 32.8 - 36.4 gm/dl 06/27/2018 18:32 [facility] RDW-CV 16.1(H) <14.2 % 06/27/2018 18:32 [facility] RDW-SD 50.4(H) <46.0 fl 06/27/2018 18:32 [facility] PLT 88(L) 141 - 377 K/cmm 06/27/2018 18:32 [facility] MPV 9.0(L) 9.5 - 12.7 fl 06/27/2018 18:32 [facility] Nucleated RBC's 1 /100 WBC'S 9 18:32 [facility] Blood specimen (specimen) BLOOD SPECIMEN / Unknown 06/27/2018 17:53 EDT 06/27/2018 18:08 EDT Terrie Givens MD HEMATOLOGY & PF4 ORD ERABLES Performing Organization Address City/[facility]/ZIP Co de Phone Number [facility] [address] [place] [address] * CREATININE (06/27/2018 6:52 EDT) Creatinine 0.89 0.66 - 1.25 mg/dl 06/27/2018 7:45 EDT [facility] GFR, Calculated 90 >60 ml/min/1.7 3m2 06/27/2018 7:45 EDT [facility] Comment: eGFR calculated using CKD-EPI equation for non Americans. Multiply eGFR by 1.16 for Americans. Blood specimen (specimen) BLOOD SPECIMEN / Unknown 06/27/2018 6:52 EDT 06/27/2018 7:19 EDT Terrie Givens MD CHEMISTRY & BLOOD GA S ORDERABLES Performing Organization Address [facility] Co de Phone Number [facility] [address] [place] [address] * ELECTROLYTES (06/27/2018 6:52 EDT) Sodium 136 136 - 145 mEq/L 06/27/2018 7:45 EDT [facility] Potassium 4.0 3.5 - 5.0 mEq/L 06/27/2018 7:45 EDT [facility] Chloride 108 96 - 110 mEq/L 06/27/2018 7:45 EDT [facility] CO2 25 22 - 32 mEq/L 06/27/2018 7:45 EDT [facility] Blood specimen (specimen) BLOOD SPECIMEN / Unknown 06/27/2018 6:52 EDT 06/27/2018 7:19 EDT Terrie Givens MD CHEMISTRY & BLOOD GA S ORDERABLES Performing Organization Address [facility] Co de Phone Number [facility] [address] [place] [address] * (ABNORMAL) COMPLETE BLOOD COUNT (06/27/2018 6:52 EDT) WBC 3.79(L) 4.0 - 10.4 K/cmm 06/27/2018 7:34 [facility] RBC 2.46(L) 4.36 - 5.78 M/cmm 06/27/2018 7:34 [facility] Hemoglobin 7.9(L) 13.8 - 17.3 gm/dl 06/27/2018 7:34 [facility] HCT 22.3(L) 39.5 - 50.2 % 06/27/2018 7:34 [facility] MCV 91 81 - 95 fl 06/27/2018 7:34 [facility] MCH 32.1 27.6 - 33.0 pg 06/27/2018 7:34 [facility] MCHC 35.4 32.8 - 36.4 gm/dl 06/27/2018 7:34 [facility] RDW-CV 16.4(H) <14.2 % 06/27/2018 7:34 [facility] RDW-SD 50.0(H) <46.0 fl 06/27/2018 7:34 [facility] PLT 85(L) 141 - 377 K/cmm 06/27/2018 7:34 [facility] MPV 9.3(L) 9.5 - 12.7 fl 06/27/2018 7:34 [facility] Nucleated RBC's 1 /100 WBC'S 9 7:34 [facility] Blood specimen (specimen) BLOOD SPECIMEN / Unknown 06/27/2018 6:52 EDT 06/27/2018 7:19 EDT Terrie Givens MD HEMATOLOGY & PF4 ORD ERABLES [facility] [address] [place] [address] * (ABNORMAL) COMPLETE BLOOD COUNT (06/26/2018 18:48 EDT) WBC 5.02 4.0 - 10.4 K/cmm 06/26/2018 19:10 [facility] RBC 2.03(L) 4.36 - 5.78 M/cmm 06/26/2018 19:10 [facility] Hemoglobin 6.7(LL) 13.8 - 17.3 gm/dl 06/26/2018 19:10 [facility] HCT 19.2(LL) 39.5 - 50.2 % 06/26/2018 19:10 [facility] MCV 95 81 - 95 fl 06/26/2018 19:10 [facility] MCH 33.0 27.6 - 33.0 pg 06/26/2018 19:10 [facility] MCHC 34.9 32.8 - 36.4 gm/dl 06/26/2018 19:10 [facility] RDW-CV 15.9(H) <14.2 % 06/26/2018 19:10 [facility] RDW-SD 52.3(H) <46.0 fl 06/26/2018 19:10 [facility] PLT 82(L) 141 - 377 K/cmm 06/26/2018 19:10 [facility] MPV 9.2(L) 9.5 - 12.7 fl 06/26/2018 19:10 [facility] Nucleated RBC's 1 /100 WBC'S 9 19:10 [facility] Blood specimen (specimen) BLOOD SPECIMEN / Unknown 06/26/2018 18:48 EDT 06/26/2018 18:59 EDT Terrie Givens MD HEMATOLOGY & PF4 ORD ERABLES [facility] [address] [place] [address] * ECG REPORT - SCANNED (06/26/2018 17:13 EDT) 06/26/2018 17:1 3 EDT Scan 2 Services Rep PROCEDURE/MINOR TY GICAL ORDERABLES * SURGICAL PATHOLOGY (06/26/2018 8:04 EDT) Pathology Report: SURGICAL PATHOLOGY REPORT Reports generated via electronic interface contain original data; however they are lacking the format of the original report. Caution should be taken when reading/interpret ing unformatted reports. Name: ? ALMA CARBALLO ? Accession #: ? [id number] ? : ? 1955 (Age: 63) ??M [...] (ASCP) 06/27/2018 8:17 AM End of Report [facility] 06/26/2018 8:04 EDT 06/26/2018 8:04 EDT Brody Murrell MD PhD PATHOLOGY ORDER CLAUDIO [facility] [address] [place] [address] * (ABNORMAL) COMPLETE BLOOD COUNT (06/26/2018 6:31 EDT) WBC 4.22 4.0 - 10.4 K/cmm 06/26/2018 7:10 [facility] RBC 2.29(L) 4.36 - 5.78 M/cmm 06/26/2018 7:10 [facility] Hemoglobin 7.4(L) 13.8 - 17.3 gm/dl 06/26/2018 7:10 [facility] HCT 21.0(L) 39.5 - 50.2 % 06/26/2018 7:10 [facility] MCV 92 81 - 95 fl 06/26/2018 7:10 [facility] MCH 32.3 27.6 - 33.0 pg 06/26/2018 7:10 [facility] MCHC 35.2 32.8 - 36.4 gm/dl 06/26/2018 7:10 [facility] RDW-CV 15.9(H) <14.2 % 06/26/2018 7:10 [facility] RDW-SD 50.1(H) <46.0 fl 06/26/2018 7:10 [facility] PLT 82(L) 141 - 377 K/cmm 06/26/2018 7:10 EDT [facility] MPV 10.1 9.5 - 12.7 fl 06/26/2018 7:10 T [facility] Nucleated RBC's 1 /100 WBC'S 9 7:10 T [facility] Blood specimen (specimen) BLOOD SPECIMEN / Unknown 06/26/2018 6:31 EDT 06/26/2018 6:51 EDT Terrie Givens MD HEMATOLOGY & PF4 ORD ERABLES Performing Organization Address City/[facility] Co de Phone Number [facility] [address] [place] [address] * CREATININE (06/26/2018 6:31 EDT) Creatinine 0.87 0.66 - 1.25 mg/dl 06/26/2018 7:29 T [facility] GFR, Calculated 91 >60 ml/min/1.7 3m2 06/26/2018 7:29 T [facility] Comment: eGFR calculated using CKD-EPI equation for non Americans. Multiply eGFR by 1.16 for Americans. Blood specimen (specimen) BLOOD SPECIMEN / Unknown 06/26/2018 6:31 EDT 06/26/2018 6:51 EDT Terrie Givens MD CHEMISTRY & BLOOD GA S ORDERABLES Performing Organization Address [facility] Co de Phone Number [facility] [address] [place] [address] * ELECTROLYTES (06/26/2018 6:31 EDT) Sodium 137 136 - 145 mEq/L 06/26/2018 7:29 T [facility] Potassium 4.0 3.5 - 5.0 mEq/L 06/26/2018 7:29 T [facility] Chloride 110 96 - 110 mEq/L 06/26/2018 7:29 T [facility] CO2 25 22 - 32 mEq/L 06/26/2018 7:29 [facility] Blood specimen (specimen) BLOOD SPECIMEN / Unknown 06/26/2018 6:31 EDT 06/26/2018 6:51 EDT Terrie Givens MD CHEMISTRY & BLOOD GA S ORDERABLES Performing Organization Address [facility] de Phone Number [facility] [address] [place] [address] * (ABNORMAL) PROTIME (06/26/2018 6:31 EDT) Pro Time 15.5(H) 10.3 - 13.4 secs 06/26/2018 7:16 [facility] I.N.R. 1.3(H) 0.9 - 1.1 Ratio 06/26/2018 7:16 [facility] Comment: Moderate Intensity Coumadin INR = 2.0-3.0 Adjustments in anticoagulant therapy dose should be based upon the INR and NOT the Pro Time. Blood specimen (specimen) BLOOD SPECIMEN / Unknown 06/26/2018 6:31 EDT 06/26/2018 6:51 EDT Paul Strauss MD HEMATOLOGY & PF4 ORD ERABLES Performing Organization Address [facility] Co de Phone Number [facility] [address] [place] [address] * (ABNORMAL) COMPLETE BLOOD COUNT (06/26/2018 0:55 EDT) WBC 5.12 4.0 - 10.4 K/cmm 06/26/2018 1:17 [facility] RBC 2.31(L) 4.36 - 5.78 M/cmm 06/26/2018 1:17 [facility] Hemoglobin 7.5(L) 13.8 - 17.3 gm/dl 06/26/2018 1:17 [facility] HCT 21.1(L) 39.5 - 50.2 % 06/26/2018 1:17 [facility] MCV 91 81 - 95 fl 06/26/2018 1:17 [facility] MCH 32.5 27.6 - 33.0 pg 06/26/2018 1:17 [facility] MCHC 35.5 32.8 - 36.4 gm/dl 06/26/2018 1:17 [facility] RDW-CV 15.6(H) <14.2 % 06/26/2018 1:17 [facility] RDW-SD 49.9(H) <46.0 fl 06/26/2018 1:17 [facility] PLT 88(L) 141 - 377 K/cmm 06/26/2018 1:17 [facility] MPV 9.4(L) 9.5 - 12.7 fl 06/26/2018 1:17 [facility] Blood specimen (specimen) BLOOD SPECIMEN / Unknown 06/26/2018 0:55 EDT 06/26/2018 0:57 EDT Haile Zuniga MD HEMATOLOGY & PF4 OR DERABLES Performing Organization Address City/State/[facility] Co de Phone Number [facility] [address] [place] [address] * UPPER ENDOSCOPY PROCEDURE (06/26/2018) Anatomical Region [...] Blood specimen (specimen) Marianna Browne MD NURSING [facility] ATMENT - BLOOD ADMINISTRATION * TRANSFUSE RED BLOOD CELLS (06/25/2018 23:15 EDT) Blood specimen (specimen) Marianna Browne MD NURSING [facility] ATMENT - BLOOD ADMINISTRATION * PREPARE RED BLOOD CELLS (06/25/2018 18:43 EDT) Product Code [id number] [facility] Donor Number [id number] [facility] Unit ABO A [facility] Unit Rh POS [facility] Unit Status TR^Transfuse [facility] Product Expiration Date [id number] [facility] Unit Blood Type Code 6200 [facility] Coding System [id number] [facility] Blood specimen (specimen) 06/25/2018 18:43 EDT Marianna Browne MD BLOOD BANK ORDERABLES [facility] * (ABNORMAL) COMPLETE BLOOD COUNT (06/25/2018 18:06 EDT) WBC 3.79(L) 4.0 - 10.4 K/cmm 06/25/2018 18:34 [facility] RBC 1.90(L) 4.36 - 5.78 M/cmm 06/25/2018 18:34 [facility] Hemoglobin 6.4(LL) 13.8 - 17.3 gm/dl 06/25/2018 18:34 [facility] HCT 17.5(LL) 39.5 - 50.2 % 06/25/2018 18:34 [facility] MCV 92 81 - 95 fl 06/25/2018 18:34 [facility] MCH 33.7(H) 27.6 - 33.0 pg 06/25/2018 18:34 [facility] MCHC 36.6(H) 32.8 - 36.4 gm/dl 06/25/2018 18:34 [facility] RDW-CV 15.4(H) <14.2 % 06/25/2018 18:34 [facility] RDW-SD 50.1(H) <46.0 fl 06/25/2018 18:34 [facility] PLT 72(L) 141 - 377 K/cmm 06/25/2018 18:34 [facility] MPV 9.2(L) 9.5 - 12.7 fl 06/25/2018 18:34 [facility] Blood specimen (specimen) BLOOD SPECIMEN / Unknown 06/25/2018 18:06 EDT 06/25/2018 18:26 EDT Terrie Givens MD HEMATOLOGY & PF4 ORD ERABLES Performing Organization Address City/State/[facility] Co de Phone Number [facility] [address] [place] [id number] * (ABNORMAL) COMPLETE BLOOD COUNT (06/25/2018 14:18 EDT) WBC 4.18 4.0 - 10.4 K/cmm 06/25/2018 14:48 [facility] RBC 2.20(L) 4.36 - 5.78 M/cmm 06/25/2018 14:48 [facility] Hemoglobin 7.4(L) 13.8 - 17.3 gm/dl 06/25/2018 14:48 [facility] HCT 20.5(LL) 39.5 - 50.2 % 06/25/2018 14:48 [facility] MCV 93 81 - 95 fl 06/25/2018 14:48 [facility] MCH 33.6(H) 27.6 - 33.0 pg 06/25/2018 14:48 [facility] MCHC 36.1 32.8 - 36.4 gm/dl 06/25/2018 14:48 [facility] RDW-CV 15.6(H) <14.2 % 06/25/2018 14:48 EDT [facility] RDW-SD 50.7(H) <46.0 fl 06/25/2018 14:48 EDT [facility] PLT 77(L) 141 - 377 K/cmm 06/25/2018 14:48 EDT [facility] MPV 9.4(L) 9.5 - 12.7 fl 06/25/2018 14:48 EDT [facility] Blood specimen (specimen) BLOOD SPECIMEN / Unknown 06/25/2018 14:18 EDT 06/25/2018 14:32 EDT Marianna Browne MD HEMATOLOGY & PF4 ORDERABLES [facility] [address] [place] [address] * PREPARE RED BLOOD CELLS (06/25/2018 10:32 EDT) Product Code [id number] [facility] Donor Number [id number] [facility] Unit [facility] Unit Rh POS [facility] [place] [facility] Unit Status TR^Transfuse [facility] Product Expiration Date [id number] [facility] Unit Blood Type Code 6200 [facility] Coding System [id number] [facility] Blood specimen (specimen) 06/25/2018 10:32 EDT Terrie Givens MD BLOOD BANK ORDERABLE S [facility] * CREATININE (06/25/2018 5:22 EDT) Creatinine 0.86 0.66 - 1.25 mg/dl 06/25/2018 6:24 EDT [facility] GFR, Calculated 91 >60 ml/min/1.7 3m2 06/25/2018 6:24 EDT [facility] Comment: eGFR calculated using CKD-EPI equation for non Americans. Multiply eGFR by 1.16 for Americans. Blood specimen (specimen) BLOOD SPECIMEN / Unknown 06/25/2018 5:22 EDT 06/25/2018 5:56 EDT Terrie Givens MD CHEMISTRY & BLOOD GA S ORDERABLES Performing Organization Address [facility] de Phone Number [facility] [address] [place] [address] * (ABNORMAL) ELECTROLYTES (06/25/2018 5:22 EDT) Sodium 141 136 - 145 mEq/L 06/25/2018 6:24 T [facility] Potassium 4.3 3.5 - 5.0 mEq/L 06/25/2018 6:24 T [facility] Chloride 113(H) 96 - 110 mEq/L 06/25/2018 6:24 T [facility] CO2 24 22 - 32 mEq/L 06/25/2018 6:24 T [facility] Blood specimen (specimen) BLOOD SPECIMEN / Unknown 06/25/2018 5:22 EDT 06/25/2018 5:56 EDT Terrie Givens MD CHEMISTRY & BLOOD GA S ORDERABLES Performing Organization Address [facility] de Phone Number [facility] [address] [place] [address] * (ABNORMAL) COMPLETE BLOOD COUNT (06/25/2018 5:22 EDT) WBC 4.33 4.0 - 10.4 K/cmm 06/25/2018 6:07 [facility] RBC 2.66(L) 4.36 - 5.78 M/cmm 06/25/2018 6:07 [facility] Hemoglobin 9.1(L) 13.8 - 17.3 gm/dl 06/25/2018 6:07 [facility] HCT 24.7(L) 39.5 - 50.2 % 06/25/2018 6:07 T [facility] MCV 93 81 - 95 fl 06/25/2018 6:07 T [facility] MCH 34.2(H) 27.6 - 33.0 pg 06/25/2018 6:07 [facility] MCHC 36.8(H) 32.8 - 36.4 gm/dl 06/25/2018 6:07 T [facility] RDW-CV 15.3(H) <14.2 % 06/25/2018 6:07 T [facility] RDW-SD 50.0(H) <46.0 fl 06/25/2018 6:07 [facility] PLT 93(L) 141 - 377 K/cmm 06/25/2018 6:07 [facility] MPV 9.3(L) 9.5 - 12.7 fl 06/25/2018 6:07 T [facility] Blood specimen (specimen) BLOOD SPECIMEN / Unknown 06/25/2018 5:22 EDT 06/25/2018 5:56 EDT Terrie Givens MD HEMATOLOGY & PF4 ORD ERABLES [facility] [address] [place] [address] * ALT (06/25/2018 5:22 EDT) ALT 27 21 - 72 U/L 06/25/2018 6:24 EDT [facility] Blood specimen (specimen) BLOOD SPECIMEN / Unknown 06/25/2018 5:22 EDT 06/25/2018 5:56 EDT Terrie Givens MD CHEMISTRY & BLOOD GA S ORDERABLES Performing Organization Address [facility] Co de Phone Number [facility] [address] [place] [address] * AST (06/25/2018 5:22 EDT) AST 21 15 - 46 U/L 06/25/2018 6:24 EDT [facility] Blood specimen (specimen) BLOOD SPECIMEN / Unknown 06/25/2018 5:22 EDT 06/25/2018 5:56 EDT Terrie Givens MD CHEMISTRY & BLOOD GA S ORDERABLES Performing Organization Address [facility] Co de Phone Number [facility] [address] [place] [address] * ALKALINE PHOSPHATASE (06/25/2018 5:22 EDT) Total Alkaline Phosphatase 45 38 - 126 U/L 06/25/2018 6:24 EDT [facility] Blood specimen (specimen) BLOOD SPECIMEN / Unknown 06/25/2018 5:22 EDT 06/25/2018 5:56 EDT Terrie Givens MD CHEMISTRY & BLOOD GA S ORDERABLES Performing Organization Address [facility] Co de Phone Number [facility] [address] [place] [address] * (ABNORMAL) BILIRUBIN, TOTAL (06/25/2018 5:22 EDT) Bilirubin, Total 1.8(H) <1.4 mg/dl 06/25/2018 6:24 EDT [facility] Blood specimen (specimen) BLOOD SPECIMEN / Unknown 06/25/2018 5:22 EDT 06/25/2018 5:56 EDT Terrie Givens MD CHEMISTRY & BLOOD GA S ORDERABLES Performing Organization Address [facility] Co de Phone Number [facility] [address] [place] [id number] * TRANSFUSE RED BLOOD CELLS (06/25/2018 4:42 [...] BLOOD CELLS (06/24/2018 19:17 EDT) Product Code [id number] [facility] Donor Number [id number] [facility] Unit A[facility] Unit Rh POS [facility] Unit Status RE^Released From Crossmatch [facility] Product Expiration Date [id number] [facility] Unit Blood Type Code 6200 [facility] Coding System [id number] [facility] 06/24/2018 19:1 7 EDT Terrie Givens MD BLOOD BANK ORDERABLE S [facility] * PREPARE RED BLOOD CELLS (06/24/2018 19:17 EDT) Product Code [id number] [facility] Donor Number [id number] [facility] Unit ABO A [facility] Unit Rh POS [facility] [place] [facility] Unit Status RX^Transfused With Reaction [facility] Product Expiration Date [id number] [facility] Unit Blood Type Code 6200 [facility] Coding System [id number] [facility] Blood specimen (specimen) 06/24/2018 19:17 EDT Terrie Givens MD BLOOD BANK ORDERABLE S [facility] * PREPARE RED BLOOD CELLS (06/24/2018 18:31 EDT) Product Code [id number] [facility] Donor Number [id number] [facility] Unit ABO A [facility] [place] Unit Rh POS [facility] Unit Status TR^Transfuse [facility] Product Expiration Date [id number] [facility] Unit Blood Type Code 6200 [facility] Coding System [id number] [facility] 06/24/2018 18:3 1 EDT Karrie Quesada MD MSc BLOOD BANK ORDER CLAUDIO Performing Organization Address City/[facility]/ZIP Co de Phone Number [facility] * SMEAR REVIEW (06/24/2018 17:28 EDT) Smear scan only: Slide was examined by a technologist to verify the WBC and/or platelet count. 06/24/2018 18:12 EDT [facility] BLOOD SPECIMEN / Unknown 06/24/2018 17:28 EDT 06/24/2018 17:40 EDT Terrie Givens MD HEMATOLOGY & PF4 ORD ERABLES Performing Organization Address [facility] Co de Phone Number [facility] [address] [place] [address] * (ABNORMAL) PROTIME (06/24/2018 17:28 EDT) Pro Time 15.1(H) 10.3 - 13.4 secs 06/24/2018 18:06 EDT [facility] I.N.R. 1.3(H) 0.9 - 1.1 Ratio 06/24/2018 18:06 EDT [facility] Comment: Moderate Intensity Coumadin INR = 2.0-3.0 Adjustments in anticoagulant therapy dose should be based upon the INR and NOT the Pro Time. Blood specimen (specimen) BLOOD SPECIMEN / Unknown 06/24/2018 17:28 EDT 06/24/2018 17:40 EDT Terrie Givens MD HEMATOLOGY & PF4 ORD ERABLES Performing Organization Address City/[facility] Co de Phone Number [facility] [address] [place] [address] * MAGNESIUM (06/24/2018 17:28 EDT) Pathologist [facility] Magnesium 1.9 1.7 - 2.8 mg/dl 06/24/2018 18:08 EDT [facility] Blood specimen (specimen) BLOOD SPECIMEN / Unknown 06/24/2018 17:28 EDT 06/24/2018 17:40 EDT Terrie Givens MD CHEMISTRY & BLOOD GA S ORDERABLES Performing Organization Address City/[facility] Co de Phone Number [facility] [address] [place] [address] * LACTIC ACID (06/24/2018 17:28 EDT) Pathologist [facility] Lactic Acid 1.4 <2.0 mmol/L 06/24/2018 18:08 T [facility] Blood specimen (specimen) BLOOD SPECIMEN / Unknown 06/24/2018 17:28 EDT 06/24/2018 17:40 EDT Terrie Givens MD CHEMISTRY & BLOOD GA S ORDERABLES Performing Organization Address [facility] Co de Phone Number [facility] [address] [place] [address] * (ABNORMAL) COMPLETE BLOOD COUNT (06/24/2018 17:28 EDT) [facility] WBC 5.42 4.0 - 10.4 K/cmm 06/24/2018 18:11 [facility] RBC 2.50(L) 4.36 - 5.78 M/cmm 06/24/2018 17:55 [facility] Hemoglobin 8.5(L) 13.8 - 17.3 gm/dl 06/24/2018 17:55 [facility] HCT 23.5(L) 39.5 - 50.2 % 06/24/2018 17:55 [facility] MCV 94 81 - 95 fl 06/24/2018 17:55 [facility] MCH 34.0(H) 27.6 - 33.0 pg 06/24/2018 17:55 [facility] MCHC 36.2 32.8 - 36.4 gm/dl 06/24/2018 17:55 EDT [facility] RDW-CV 13.9 <14.2 % 06/24/2018 17:55 EDT [facility] RDW-SD 46.5(H) <46.0 fl 06/24/2018 17:55 EDT [facility] PLT 91(L) 141 - 377 K/cmm 06/24/2018 18:11 EDT [facility] MPV 9.3(L) 9.5 - 12.7 fl 06/24/2018 18:11 EDT [facility] Blood specimen (specimen) BLOOD SPECIMEN / Unknown 06/24/2018 17:28 EDT 06/24/2018 17:40 EDT Terrie Givens MD HEMATOLOGY & PF4 ORD ERABLES Performing Organization Address [facility] Co de Phone Number [facility] [address] [place] [phone] * ANTIBODY IDENTIFICATION (06/24/2018 17:21 EDT) Antibody Identification Anti-E Anti-c (little) [facility] 06/24/2018 17:2 1 EDT Terrie Givens MD BLOOD BANK TESTS Performing Organization Address City/[facility]/ZIP Co de Phone Number [facility] * TYPE AND SCREEN (06/24/2018 17:21 EDT) ABO A [facility] Rh Factor Positive [facility] Antibody Screen Positive [facility] Specimen Expires: 06/27/2018 @ 23:59 [facility] 06/24/2018 17:2 1 EDT Terrie Givens MD BLOOD BANK TESTS Performing Organization Address City/[facility]/ZIP Co de Phone Number [facility] * EKG 12-LEAD (06/24/2018 17:18 EDT) 06/24/2018 17:1 8 EDT Narrative [facility] - 06/26/2018 17:10 EDT ? [facility] ? Test Date: ?2018-06-24 Pat Name: ? ALMA CARBALLO ?Department: ?? [facility] [address] [place] ? Room: ? SB466 Gender: ? Male ? Credit Control Administrator: ?? [id number] : ?1955 ? Requested By: GIVENS TERRIE Order Number: [id number] ? Reading MD: ?? CHIRAG SCOTT MD ? Measurements Intervals ?Walker ? Rate: ? 65 ? P: ?19 AK: ? 164 ?QRS: ?1 QRSD: ? 77 ? T: ?76 QT: ? 416 ? QTc: ?433 ? Interpretive Statements SINUS RHYTHM NONSPECIFIC T-WAVE ABNORMALITY No previous ECG available for comparison I reviewed the tracing and have either agreed or edited the findings in this report. Electronically Signed On 06-26-2018 17:10:06 EDT by CHIRAG SCOTT MD. Procedure Note Chirag Scott MD - 06/26/2018 [facility] Test Date: 2018-06-24 Pat Name: ALMA CARBALLO Department: [address] Room: SB466 Gender: Male Credit Control Administrator: [id number] : 1955 Requested By: TOSHA FALCON Order Number: [id number] Jimmie MD: CHIRAG SCOTT MD Measurements Intervals Walker Rate: 65 P: 19 AK: 164 QRS: 1 QRSD: 77 T: 76 QT: 416 QTc: 433 Interpretive Statements SINUS RHYTHM NONSPECIFIC T-WAVE ABNORMALITY No previous ECG available for comparison I reviewed the tracing and have either agreed or edited the findings inthis report. Electronically Signed On 06-26-2018 17:10:06 EDT by CHIRAG STEVENSON. Terrie Givens MD CARDIAC ECG ORDERABL ES [facility] EKG documented in this encounter Visit Diagnoses [...] Intraprocedure Given 06/30/2018 13:09 EDT 2.5 mg ypwdohq-vjcaohiay-xvfqvtuzuxuzlau (MAGIC MOUTHWASH) oral suspension 15 mL 15 [...] 1630, Routine 1711 (Given - Provider: Gonzalo Henlsey, RN) lactulose (CHRONULAC) 20 gram/30 mL solution [...] 06/24/2018 documented in this encounter Care Teams Fund Accountant Relationship Specialty Start Date End Date Laurie Manzo MD PCP - General 05/08/18 03/25/19 documented as of this encounter
--- OUTSIDE RECORDS SUMMARY | 2024-01-17 15:37 | XMS_ITS | Encounter Summary ---
Author Organization [facility] Address [address] [place] [address] Care Team Providers Care Technical Internship Name Role Phone Laurie Wiggins MD Primary Care Provider [phone] Reason for Referral * Consult (Routine) - Authorization Not Required Specialty Diagnoses / Procedures Referred By Contac t Referred To Contact Neurology Diagnoses Other migraine with status migrainosus, not intractable Marianna Walker MD [address] [place] [address] Marianna Walker MD [address] [place] [address] Referral ID Status Reason Start Date Expiration Date Visits Requested Visits Authorized [id number] Authorization Not Required Specialty Services Required 9 1 1 Question Answer Reason for Request: follow up Expected Discharge Date (Inpatient Only): 08/31/2018 Encounter Details Date Type Department Care Team (Late st Contact Info) Description 08/09/2018 16:54 EDT - 09/12/2018 10:34 EDT Hospital Encounter [facility] Inpatient Psychiatry Unit [address] [place] [address], [place] [id number] Sonali Mills MD [address] [facility] [place], [address] [place] [address] Depression, unspecified depression type (Primary Dx); Substance abuse ([facility]); Suicidal ideation; Other migraine with status [...] * Sonali Mills MD, MD - 08/17/2018 3575 EDT INPATIENT PSYCHIATRIC DISCHARGE SUMMARY Patient Name: [...] to meeting his current girlfriend who is Colombian and drank alcohol/wine every day. On meeting [...] DUI yesterday. He spent the night in [facility] and was released this morning when hewas faced with the prospect of walking 40 miles to his home as he has no money. He describes this as the last straw and thinking that he just wanted to . He mentioned this to the social sciences lecturer at the police station who then brought [...] Hospital Course: The patient was admitted to [address]ry unit, on a voluntary basis. [...] and alternatives. In c onjunction with his social sciences lecturer, he got his disability benefits back (it was an error), moved hisapartment, paid his bills, and had the bank repossess his car since he won't need it once he loses his license. He spoke to the court and understands a brief [facility] stay is more than likely. As each [...] normal. 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 He was able to advocate for himself and did express the need for continued OP individual counseling after discharge from substance use program. Accordingly he was referred to [facility] for services. Condition on Discharge: good Suicide [...] treatment. Judgement ;good. CiaraAlonzo Home Medication Instructions MIRELLA:[id number] Printed on:09/13/18 4743 Medication Information citalopram (CELEXA) 10 mg tablet [...] more than one antipsychotic medication: N/A Disposition: [facility] Follow-up Referrals and Appointments: Amb Consult/Follow Up Neurology Reason for Request: follow up Expected Discharge Date (Inpatient Only): 08/31/2018 Alonzo will discharge to [facility] and receive substance use disorder treatment, intake at 09/12/18 @1pm. After completing the program he will follow up with [facility] who will be expecting to hear from him. [address] [address] [facility] Mental Health, Substance Abuse, and Developmental Services Mental Health Crisis Services [facility]. [place]: [phone] AVS completed by: CISCO Guillen 09/12/18 please call with any questions [phone] NORBERTO Miranda PGY2 Health Diagnostics Teacher Attending Addendum: I saw and evaluated the patient on the day of discharge prior to departure. Discharge and follow upplan was reviewed with the patient. I agree with the summary and discharge plan as documented in the resident's discharge summary (with edits in blue text). Total time I spent on discharge: 60 minutes Sonali Mills MD Attending Psychiatrist [facility] Pager [phone] documented in this encounter Discharge Instructions * Appointments* Venkata Telles LICSW - 09/12/2018 8:40 EDT Alonzo will discharge to [facility] and receive substance use disorder treatment, intake at 09/12/18 @1pm. After completing the program he will follow up with [facility] who will be expecting to hear from him. [address] [address] [facility] Office Mental Health, Substance Abuse, and Developmental Services Mental Health Crisis Services [facility]: [phone] AVS completed by: CISCO Guillen 09/12/18 please call with any questions [phone] documented in this encounter Medications at Time [...] discharge. JIMENEZ explained follow up plan with [facility]. Alonzo is future oriented and looking forward [...] occurs Adrian Rivas MD Department of Psychiatry [facility] 09/12/2018 6:55 * Sharon Flores RN - 09/12/2018 9664 EDT Post Fall BELEM Note Data: Patient [...] cab for 10:30am tomorrow to take himto [facility]. 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 JIMENEZ left a message for [facility] regarding Alonzo letting them know he would follow up with after [facility]. CISCO Guillen * Sonali Mills MD, [...] well-rested. Is anxious about the unknown of [facility] but feels he can handle it, and feels sad about leaving all the good people here. He has arranged a pass this AM with a former patient to go purchase needed items at [facility]. He denies SI and believes he can [...] multidisciplinary team. SONALI MILLS MD Attending Psychiatrist [facility] Pager [phone] * Laura Solo MD, MD - 09/10/2018 5482 EDT 09/10/2018 ATTENDING SCHOOL PLANT CONSULTANT NOTE: PROBLEM: Suicidal ideation HOSPITAL DAY: LOS: 32 days INTERIM HISTORY: Events of past 24h reviewed with nursing staff and chart reviewed. Angry at activity therapist and Dr. Brewer re: discussion about boundaries in groups with another patient (MH). Slept 3 intermittent hours. [facility] House discharge planned for Tuesday. Looking forward to this. [facility] friend to make purchases to [...] treatment plan. Laura Solo MD Attending Psychiatrist instructional support assistant * Laura Solo MD, MD - 09/09/2018 0796 EDT 09/09/2018 ATTENDING SCHOOL PLANT CONSULTANT NOTE: PROBLEM: Suicidal ideation HOSPITAL DAY: LOS: 31 days INTERIM HISTORY: Events of past 24h reviewed with nursing staff and chart reviewed. Social. In milieu. [facility] discharge planned for Tuesday. He is looking [...] treatment plan. Laura Solo MD Attending Psychiatrist instructional support assistant * Venkata Telles LICSW - 09/08/2018 1415 EDT Social Work Progress Note Intervention/Service: Community referral, Coordination of care and Discharge planning JIMENEZ met with Alonzo today and talked about discharge on 09/12/18. JIMENEZ explained Alonzo would need to discharge by 11am on Tuesday to get to his 1pm intake at [facility]. Alonzo will complete [facility] with a plan to follow up with [facility] upon discharge. CISCO Guillen * Sonali Mills [...] group. Met .with Alonzo this AM with executive director of nursing in the room- he invited the student [...] that he will have a bed at [facility] early next week. He continues to benefit [...] per multidisciplinary team rounds- awaiting placement at [facility]. NORBERTO Miranda 09/08/2018 8:45 PGY2 Health Diagnostics Teacher Attending Attestation: I saw and evaluated the [...] multidisciplinary team. SONALI MILLS MD Attending Psychiatrist [facility] Pager [phone] * Sonali Mills MD, MD - 09/07/2018 [...] Fingerstick 212 (H) 70 - 100 mg/dl Drum Attendant ID [id number] HEMOGLOBIN A1C Collection Time: 09/07/18 6:44 Result [...] reality of needing to spend time in [facility] post- [facility] is kicking in. Alonzo [...] per multidisciplinary team rounds- awaiting placement at [facility]. NORBERTO Miranda 09/07/2018 9:16 PGY2 Health Diagnostics Teacher Attending Attestation: I saw and evaluated the [...] multidisciplinary team. SONALI MILLS MD Attending Psychiatrist [facility] Pager [phone] * Sonali Mills MD, MD - 09/06/2018 [...] was being taken away. When working at [employer] did happen when it was very busy and stressful I.e. In the context of anxiety. Continues to endorse frustration about ongoing difficulty with speech. Also endorses hope that he will be able to be discharged to [facility] despite recent developments. Did discuss code status [...] JIMENEZ to provide list of psychiatrist in [facility]- trauma focused therapy . GI [...] of aphasia may hinder his placement at [facility]- However is hopeful that since we have [...] per multidisciplinary team rounds- awaiting placement at [facility]. NORBERTO Miranda 09/06/2018 11:10 PGY2 Health Diagnostics Teacher Attending Attestation: I saw and evaluated the [...] multidisciplinary team. SONALI MILLS MD Attending Psychiatrist [facility] Pager [phone] * Venkata Telles LICSW - 09/06/2018 0837 [...] to reduce his antidepressant. JIMENEZ spoke with [facility] and Alonzo is on the wait list [...] w/ some anxiety about future (going to [facility], etc.). Insight is good. Judgement is good. [...] per multidisciplinary team rounds- awaiting placement at [facility]. Sonali Mills MD 09/05/2018 22:09 Attending Attestation: I saw and evaluated the patient today. Treatment plan reviewed with the patient and team. Total time spent directly with patient was 35 minutes of which 20 minutes was spent in counseling (re:symptoms and treatment plan as in note above) and/or in coordination of care with the multidisciplinary team. SONALI MILLS MD Attending Psychiatrist [facility] Pager [phone] * Gabrielle Lynch MD, MD - 09/04/2018 1837 EDT 09/04/2018 ATTENDING SCHOOL PLANT CONSULTANT NOTE: CHIEF COMPLAINT: Depression he has been [...] the morning Gabrielle Lynch MD Attending Psychiatrist instructional support assistant * Adrian Rivas MD - 09/04/2018 1711 [...] Adrian Rivas MD PGY1 - Psychiatry Pager [phone] * Gera Beckman MD, MD - 09/03/2018 0932 EDT 09/03/2018 ATTENDING SCHOOL PLANT CONSULTANT NOTE: CHIEF COMPLAINT: Suicidality HOSPITAL DAY: LOS: [...] as needed Gera Beckman MD Attending Psychiatrist instructional support assistant * Gera Beckman MD, MD - 09/02/2018 1240 EDT 09/02/2018 ATTENDING SCHOOL PLANT CONSULTANT NOTE: CHIEF COMPLAINT: Suicidality HOSPITAL DAY: LOS: [...] MSE: Casually dressed, friendly, attentive. Recognizes this singer songwriter. Good eye contact. Speech fluent. Occasional thought [...] with neurology and medicine as needed Gera eBckman MD Attending Psychiatrist instructional support assistant * Marilele Stephens RN - 09/02/2018 0643 EDT Assumed [...] with Alonzo this morning and called his public works inspector with him. The public works inspector was outof the office so we left a message requesting a return call. Alonzo stated he was having a hard day and was really tired today due to checks. Should have a decision on whether or not [facility] will accept him today. CISCO Guillen * [...] per multidisciplinary team rounds- awaiting placement at [facility]. NORBERTO Miranda 09/01/2018 9:13 PGY2 Health Diagnostics Teacher Attending Attestation: I saw and evaluated the [...] multidisciplinary team. SONALI MILLS MD Attending Psychiatrist [facility] Pager [phone] * Venkata Telles LICSW - 08/31/2018 1532 EDT Social Work Progress Note Intervention/Service: Discharge planning JIMENEZ met with Alonzo and sat with him through his phone screening with [facility]. The next step in the process is for the Clinical [employer] to review the information, they will have an answer forJames tomorrow. Alonzo asked if JIMENEZ would assist him with calling his public works inspector tomorrow. JIMENEZ made a plan to meet with Alonzo at 8:30am. CISCO Guillen * Sonali Mills MD, MD - 08/31/2018 0898 EDT Inpatient Psychiatry Daily Progress Note Date [...] denies Reports having a phone meeting with [facility] this afternoon at 1 p.m. Met with [...] the work that he does when in [facility] - how to establish a realistic support [...] go to 5- [address] [facility] hoping to find a male sponsor [...] CBT while he is awaiting placement at [facility].- likely next week. Alonzo Urbina meets criteria [...] per multidisciplinary team rounds- awaiting placement at [facility]. NORBERTO Miranda 08/31/2018 8:52 PGY2 Health Diagnostics Teacher Attending Attestation: I saw and evaluated the [...] multidisciplinary team. SONALI MILLS MD Attending Psychiatrist [facility] Pager [phone] * Sonali Mills MD, MD - 08/30/2018 0567 EDT Inpatient Psychiatry Daily Progress Note Date [...] team rounds. NORBERTO Miranda 08/30/2018 16:52 PGY2 Health Diagnostics Teacher Attending Attestation: I saw and evaluated the [...] multidisciplinary team. SONALI MILLS MD Attending Psychiatrist [facility] Pager [phone] * Venkata Telles LICSW - 08/30/2018 1319 EDT Social Work Progress Note Intervention/Service: Community referral, Coordination of care and Discharge planning JIMENEZ met with Alonzo at 1pm to be present for his phone screening with [facility] JIMENEZ was mistakenabout day of phone screening [...] looking forward to his intake interview for [facility] (which has not yet been scheduled), and to taking time after that to fish and reflect. He spoke with his public works inspector today, and learned that he will need to spend some time in [facility] for his DUI (anywhere from 1-12 months). Alonzo has agreed to taking lactulose once a day, in the mornings. The nursing report indicates thathe has taken it twice a day for the past two days. Alonzo discussed further his reasons for lying about needing to take Tylenol for pain this weekend. 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 Diagnostic Impression w/ Differential Diagnosis Psychiatric Diagnoses [...] multidisciplinary team. SONALI MILLS MD Attending Psychiatrist [facility] Pager [phone] * Venkata Telles LICSW - 08/28/2018 1537 EDT Social Work Progress Note Intervention/Service: Coordination of care JIMENEZ met with Alonzo today. Alonzo was feeling really good about getting all of his furniture moved over the weekend. JIMENEZ explained that we need to reschedule his phone screening with [facility]. JIMENEZ left message with Marilyn at [facility]. CISCO Guillen * Sonali Mills MD, [...] his belongings, which were sent over from [facility] after his things were moved into hisnew [...] multidisciplinary team. SONALI MILLS MD Attending Psychiatrist [facility] Pager [phone] * Mason Hill MD, MD - 08/27/2018 0815 EDT 08/27/2018 ATTENDING SCHOOL PLANT CONSULTANT NOTE: CHIEF COMPLAINT: SI HOSPITAL DAY: LOS: [...] treatment plan. Mason Hill MD Attending Psychiatrist instructional support assistant * Mason Hill MD, MD - 08/26/2018 0841 EDT 08/26/2018 ATTENDING SCHOOL PLANT CONSULTANT NOTE: CHIEF COMPLAINT: SI HOSPITAL DAY: LOS: [...] treatment plan. Mason Hill MD Attending Psychiatrist instructional support assistant * Sonali Mills MD, MD - 08/25/2018 [...] multidisciplinary team. SONALI MILLS MD Attending Psychiatrist [facility] Pager [phone] * Venkata Telles [facility] - 08/25/2018 1500 EDT Social Work Progress Note Intervention/Service: Community referral, Coordination of care and Discharge planning JIMENEZ met with Alonzo today. Alonzo said he was having a rough day but feeling better. JIMENEZ explained thatwe will schedule him for a phone screening with [facility] on Tuesday. JIMENEZ let him know that he was scheduled for that today but SW canceled it. CISCO Guillen * Sonali Mills MD, - 08/24/2018 8808 EDT Medical Student Inpatient Psychiatry Daily Progress [...] multidisciplinary team. SONALI MILLS MD Attending Psychiatrist [facility] Pager [phone] * Venkata Telles LICSW - 08/24/2018 1552 [...] Marianna Walker MD - 08/24/2018 1413 EDT [facility] NEUROLOGY CONSULT PROGRESS NOTE PATIENT NAME: Alonzo [...] and cocaine), who is currently admitted to [facility] with suicidal ideation. Neurology is consulted for [...] visit (from the past 24 hour(s)). Assessment/Formulation: Alonoz Urbina is a 63 y.o. year old [...] multidisciplinary team. SONALI MILLS MD Attending Psychiatrist [facility] Pager [phone] * Bette Rashid RN - 08/22/2018 9489 EDT Data: Patient denies SI/HI here. His [...] to court. SW also faxed clinical to [facility] to get him connected with [facility] treatment. 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 We will also [...] individual therapy. NORBERTO Miranda 08/22/2018 14:25 PGY2 Health Diagnostics Teacher Attending Attestation:I saw and evaluated the patient [...] multidisciplinary team. SONALI MILLS MD Attending Psychiatrist [facility] Pager [phone] * Marianna Walker MD - 08/22/2018 7071 EDT [facility] NEUROLOGY CONSULT PROGRESS NOTE PATIENT NAME: Alonzo [...] and cocaine), who is currently admitted to [facility] with suicidal ideation. Neurology is [...] will fill out. [facility] JIMENEZ will fax clinical. CISCO Guillen * Marianna Walker MD - 08/21/2018 1320 EDT [facility] NEUROLOGY CONSULT PROGRESS NOTE PATIENT NAME: Alonzo [...] and cocaine), who is currently admitted to [facility] with suicidal ideation. Neurology is consulted for [...] likely act on these, which demonstrates self-awareness. Alonzo asked about his future [...] belongings from one apartment to another in [facility]. Alonzo will need to arrange transportation and [...] team rounds. NORBERTO Miranda 08/21/2018 8:17 PGY2 Health Diagnostics Teacher Attending Attestation: I saw and evaluated the [...] multidisciplinary team. SONALI MILLS MD Attending Psychiatrist [facility] Pager [phone] * Arturo Keller MD, MD - 08/20/2018 7634 EDT ATTENDING SCHOOL PLANT CONSULTANT NOTE REASON FOR HOSPITALIZATION: HOSPITAL DAY: LOS: [...] mL 30 mL oral Daily PRN Sania Siufentes MBBS ??? magnesium oxide (MAG-OX) tablet 400 [...] A Praful Keller MD, MPH Attending Psychiatrist instructional support assistant * Micaela Ayers MD - 08/19/2018 1413 [...] this re-evaluation. Micaela Ayers MD Neurology PGY-3 #5606 (#0047 afterhours and weekends) * Arturo Keller MD, MD - 08/19/2018 0732 EDT ATTENDING SCHOOL PLANT CONSULTANT NOTE REASON FOR HOSPITALIZATION: HOSPITAL DAY: LOS: [...] and coordination of care,including serial discussions with staff mine warfare officer (Chirag Bass), d/w Dr Ayers, record review and related matters. Arturo Keller MD, MPH Attending Psychiatrist instructional support assistant * Lloyd Lou MD, MD - 08/18/2018 1705 EDT APS [...] Joanie Aviles DO - 08/18/2018 1636 EDT [facility] NEUROLOGY CONSULT PROGRESS NOTE PATIENT NAME: Alonzo [...] and cocaine), who is currently admitted to [facility] with suicidal ideation. Neurology is consulted for [...] 20:59 * Venkata Telles LICSW - 08/18/2018 9883 EDT Social Work Progress Note Intervention/Service: Coordination of care and Discharge planning JIMENEZ assisted Alonzo with contacting his [employer] in an effort to get his Debit card information to get his car out of the impound. The [employer] was only able to give routing number and account number for a electronic payment. Unfortunately the [employer] could not process a payment in that way. [facility] Evonne Ya who agreed to cover cost of [employer]. Alonzo was very appreciative of the support. CISCO Guillen * Venkata Telles LICSW - 08/18/2018 3853 EDT Social Work Progress Note Intervention/Service: Coordination of care JIMENEZ met with Alonzo and made several calls to his [employer], the [employer] that has his car, and SW rate manager. Eventually is was decided that [facility] would cover the cost of [...] team rounds. NORBERTO Miranda 08/18/2018 8:52 PGY2 Health Diagnostics Teacher Attending Attestation: I saw and evaluated the [...] multidisciplinary team. SONALI MILLS MD Attending Psychiatrist [facility] Pager [phone] * Venkata Telles LICSW - 08/17/2018 1437 EDT Social Work Progress Note Intervention/Service: Coordination of care and Discharge planning Alonzo reported this morning that he had heard back from [employer]. Alonzo reports that they are going to [...] - encourage groups Substance use disorder: Active [facility] monitoring protocol Substance use/ Recovery group- did [...] team rounds. NORBERTO Miranda 08/17/2018 8:18 PGY2 Health Diagnostics Teacher Attending Attestation: I saw and evaluated the [...] multidisciplinary team. SONALI MILLS MD Attending Psychiatrist [facility] Pager [phone] * Venkata Telles LICSW - 08/16/2018 1630 EDT Social Work Progress Note Intervention/Service: Community referral, Coordination of care and Discharge planning JIMENEZ met with Alonzo today. Alonzo has not heard back from [employer]. JIMENEZ and Alonzo discussed possibility of him having his car towed from [employer] to his apartment. Alonzo said that could work but hedoes not have a way to pay [employer]. All of his credit cards and debit cards are in his apartment. JIMENEZ asked if he could ask his Landlord for assistance. Alonzo thought that it might be possiblefor his land lord to milk pickup truck driver his car. Alonzo plans to call him [...] - encourage groups Substance use disorder: Active [facility] monitoring protocol Substance use/ Recovery group- this [...] attestation - Kojo Yanez MD - 09/21/2018 9004 EDT Attending Attestation: I saw and evaluated the patient 08/16/18. Treatment plan reviewed with the patient and team. I agree with (and have edited in italics) the findings and plan of care as documented in the resident/PA's note. Kojo Yanez MD Attending Psychiatrist Pager [phone] * Sienna Ham RN - 08/15/2018 7710 EDT Assumed patient care at 19:00. Patient [...] team rounds. NORBERTO Miranda 08/15/2018 14:40 PGY2 Health Diagnostics Teacher Attending Attestation: I saw and evaluated the [...] multidisciplinary team. SONALI MILLS MD Attending Psychiatrist [facility] Pager [phone] * eVnkata Telles [facility] - 08/15/2018 1155 EDT Social Work Progress Note Intervention/Service: Community referral, Coordination of care and Discharge planning JIMENEZ met with Alonzo today and assisted him with calling Paul [employer] to find out where his car is impounded. JIMENEZ contacted [employer] and they have his car. Alonzo stated he has not outside support to help him get his car moved. [employer] is charging $55.00/day for storage and $150.00 [...] - encourage groups Substance use disorder: Active [facility] monitoring protocol Substance use/ Recovery group Depression [...] multidisciplinary team. SONALI MILLS MD Attending Psychiatrist [facility] Pager [phone] * Venkata Telles LICSW - 08/14/2018 2041 EDT Social Work Progress Note Intervention/Service: Coordination of care and Discharge planning JIMENEZ met with Alonzo today. lAonzo would like to call , his landlord, [...] team. Chantal Brewer PsyD. Staff Psychologist Pager [phone] * Chantal Brewer PsyD - 08/12/2018 0735 [...] He was irritable and somewhatcombative with the singer songwriter. He appears to experience significant guilt as [...] He abruptly ended his meeting with the singer songwriter by stating, I don't want to talk [...] team. Chantal Brewer PsyD. Staff Psychologist Pager [phone] * Tl St, PhD - 08/11/2018 958 EDT [facility] Department of Psychiatry-Inpatient Psychiatry GT Note Re: Alonzo Urbina : 1955 AGE: 63 y.o. Room: [place] [address] The patient attended the Recovery Group this evening at 18:15. The Recovery Group Volunteers reported to this singer songwriter, at the end of the session, that the patient J.W. made several Self-Harm and Suicidal statements while in group, adding that he was in [place] to[place] seek to , as he endorsed no hope for the future, and no support either from the multidis ciplinary treatment team on the unit or in the community. This singer songwriter communicated this with staff mine warfare officer and will meet with both the MD instructional support assistant (currently in a meeting with another patient) [...] long relationship for which he moved to [facility] in which the woman told him one day: I don't like you and asked him to move out. He then got the first apartment he could in [facility] [place] which doesn't feel like home. Reiterated that [...] multidisciplinary team. 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 His girlfriend returned from her trip and asked him to leave her home. Alonzo has been couch surfing and drinking ever s terry he moved out. Other Social Supports: None identified. Education/Employment Financial: Alonzo is currently working at [employer]. Alonzo asked that SW contact them to let them know he would not be coming in. Substance Abuse and Treatment History: Alonzo has had 3 previous rehabilitation stays. Mental Health Treatment History: No previous psychiatric hospitalizations. Mental Health and Other Providers: None identified. Legal Issues: 2nd DUI a few days ago. Spiritual/Confucianism/Cultural Considerations: None identified. Other Issues/Supports/Barriers to Adaptive [...] 08/09/2018 Date of service: 08/09/2018 Referral source[facility] Outpatient providers: none PCP: Laurie Wiggins Information [...] to meeting his current girlfriend who is Colombian and drank alcohol/wine every day. On meeting her, the patient started to drink the occasional glass of wineand quickly relapsed into binges of alcohol sometimes lasting all night. His relationship with his girlfriend was already strained however when she went to [facility] he spent all night drinking at a [...] DUI yesterday. He spent the night in [facility] and was released this morning when hewas faced with the prospect of walking 40 miles to his home as he has no money. He describes this as the last straw and thinking that he just wanted to . He mentioned this to the social sciences lecturer at the police station who then brought [...] month when he was working in the [employer] discontinued due to oversedation. 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 Sonali Mills MD Attending Psychiatrist [facility] Beeper #[id number] documented in this encounter Procedure Notes * Joanie Aviles DO - 08/17/2018 1457 EDT Occipital Nerve Block for Migraine with status migrainosus/post-traumatic headache Date: 08/17/18 Name: Alonzo Urbina Pre-procedure diagnosis: Migraine with status migrainosus/post-traumatic headache Post-procedure diagnosis: Migraine with status migrainosus/post-traumatic headache Solution: 1% lidocaine Skin was prepped with alcohol and the following sites were injected: Region Right Left Nerve Block Nerve Xander Great Occipital Region 2 mL 2 mL Lesser Occipital Region 0.5 mL 0.5mL Total dose use: 5 mL Estimated blood loss: Less than 0.01 ml Specimen removed: None 1% lidocaine: Lot: [id number] Exp: MAR 2021 Consent was signed by [...] on two healthy snacks that he likes, thai yogurt, and [employer] Bars. Pt expressed his [...] Nathanael Coleman, MS RD SHP3/SHP6 Dietitian Pager: [phone] * José Catalan MD, MD - 09/06/2018 [...] he has noted that while working at [employer] he would sometimes take note of what [...] file Gets together: Not on file Attends scientologist service: Not on file Active member of [...] back surgery for scoliosis currently admitted to [facility] for depression. Patient was in their USOH [...] Time: (P) 2199 Date: (P) 08/31/18 [facility], NIHSS: NIHSS Criteria 08/25/2018 Test Interval [...] (alcohol andcocaine), who is currently admitted to [facility] with suicidal ideation. Neurology is consulted for [...] much. Of note, he was admitted to [facility] for a duodenal ulcer bleed in June [...] and cocaine), who is currently admitted to [facility] with suicidal ideation. Neurology is consulted for [...] stating he was looking forward to going [employer] on Tuesday. Patient also eager to report [...] the end of the stay at the [facility]. He asked about what to do about [...] his peers being discharged?? . Pt researched w/singer songwriter about [facility] concerning his upcoming discharge. Pt was [...] with medications as ordered. Pt had a wine steward this shift - please, see his note. [...] in trouble with the law with possible [facility] time resulting, he was taking his recovery [...] Family DISCHARGE PLANS: Alonzo will discharge to [facility] with follow up through [facility]. Treatment Team Members Resident MD: n/a RN: Nancy Ventura RN Therapist: EUGENIO Oneil Anatomy Professor:CISCO Guillen PharmD: Attending physician statement/signature: Based on [...] Care - Julienne Suárez RN - 09/06/2018 0630 EDT Problem: Daily Care Plan Goals Goal: Care Plan Documentation Outcome: Met This Shift 09/06/18 0991 Care Plan Focus Area of Focus Safety [...] Goal This Shift sleeps 6-8 hours overnight 6063-5344 Data: Frequent, Voluntary, Level 3. Pt appeared [...] Care - Dhara Anne RN - 09/05/2018 8756 EDT Problem: Daily Care Plan Goals Goal: Care Plan Documentation Outcome: Met This Shift 09/05/181842 Care Plan Focus Area of Focus Safety Goal This Shift Patient will remain safe throughout shift. [facility] care 7978-3172 Data: Pt requested to sleep at beginning of shift. Pt did not awake during shift. Action: Provided & promoted a therapeutic sleep environment, available for needs throughout shift, preformed visual checks as ordered. Response: Pt reported he has not been sleeping well the past few nights. Pt requested rest & sleep at [facility] & pt was OOB at 2044. Pt had a peer (Kiley) visit w/him outside his room w/chair in the doorway. Pt told the singer songwriter ???this is not a crush or love or anything?? . Pt remained safe, remained in his room this shift w/behavior in control. Pt slept 0. 15 hrs this shift. Will continue to mon itor. * Plan of Care - Katina Ibanez RN - 09/05/2018 6877 EDT Problem: Daily Care Plan Goals Goal: Care Plan Documentation 09/05/18 643 Care Plan Focus Area of Focus Safety [...] pt voice concerns r/t d/c and possible [facility] time. Response: Pt has had 6 formed [...] Shift to keep the pt safe SHIFT: 9327-7523 Problem: Daily Care Plan Goals Goal: Care Plan Documentation Outcome: Ongoing ?? 09/04/18 0753 Care Plan Focus Area of Focus Safety Goal This Shift to keep the pt safe DATA:?Pt's Observation level: Frequent/Voluntary/3. Patient awake in bed at the beginning of this singer songwriter's shift. A/o to person, place, and time; Denies SI/HI/AVH/Pain. Pt is polite and cooperative; Mood is mixed; affect is anxious. Behavior over talkative in the start of this singer songwriter's shift; however, as the day progressed pt [...] pt relaxes his speech gets better. MD instructional support assistant aware and case discussed. Please refer to [...] remained safe on the unit during this singer songwriter's shift. Continue to monitor the patient as per orders. Will endorse to oncoming RN. Pt denies having another BM since last lactulose dose. Pt called this singer songwriter ~1700 and told that he is DNR also told this singer songwriter to get a box full of papers that he brought with him to look for DNR form. Staff found the box pt was referring to and this singer songwriter took the papersto the pt. Pt took out his DNR/DNI form to show and for us to keep for the record. This singer songwriter called the instructional support assistant MD Adrian Rivas to discuss the code status as in computer pt's status is Full Code. MD has put a note in pt's chart please refer to MDs clear instructions. For now pt remains Full Codeuntil further evaluation of capacity and the resolution of the discrepancy in the code status. Thiswriter has informed the delinquent notice machine operator of this information. The form that pt gave to this singer songwriter has been placed in the patient's paper [...] with peers. Response:pt remains safe on unit. Tl Tobin RN 09/02/2018 14:07 * Plan of [...] Team - Sonali Kaufman RN - 09/01/2018 4093 EDT Psychiatry Multidisciplinary Treatment Plan - Update [...] Laine Pichardo RN Therapist: Tl St, PhD Anatomy Professor:Chen Hickman PharmD: Attending physician statement/signature: Based on [...] Goal This Shift sleeps 6-8 hours overnight 0725-7292 Data: Routine, Voluntary, Level 3. Pt awake [...] be appropriate w/peers in milieu Assumed Care 0074-6653 Data: Pt was in his room w/medical [...] need. Asked appropriate questions about his medications. [place] that the frequency of checks has been [...] pain or discomfort. Requested to speak to singer songwriter at ~0045-during 1:1 Alonzo reported that he got some bad news today and he states his public works inspector told him he will most likely be going to [facility] for at least 30 days d/t his 2 DUI's in a 6 month time frame. Alonzo spoke to singer songwriter about feeling guilty about things he has [...] Behavior in control. Engaging appropriately with this singer songwriter and with peers. JENNIFER QUILES RN 08/29/2018 [...] was going to be changed. Spoke to singer songwriter regarding his conflict with another patient on [...] shift(he reports 35). At ~0300 Alonzo asked singer songwriter to talk-Alonzo stated I need to tell [...] Melatonin has not been effective for sleep. Alonzo stated I'm really manipulative and good at lying but I'm trying to make a change. Alonzo also spoke about his difficulties he has had with another patient(A.S) on the unit-he stated I'm not one to back down-Alonzo agreed that he would come to staff when feeling angry with the other patient. Alonzo spoke about not going to garden because it reminds him of [place] fishing which is something that he says he greatly misses and hopes to be able to do when he returns home. Alonzo expressed relief at being able to open up to singer songwriter regarding asking for tylenol when he feels [...] of shift from day to evening this singer songwriter attempted to let him know I would [...] During a 1:1 this evening with this singer songwriter, Alonzo continued to express his frustration over [...] was not noted to be one in [employer]. Patient would like to take his HS [...] provided topical cream after alpha page doctor instructional support assistant. Patient not sleeping at being of shift. [...] 08/25/2018 14:06 * Plan of Care - [place] Emerald - 08/25/2018 1113 EDT Problem: Daily [...] to monitor safety, sleep and behaviors. Emerald [place] 08/25/2018 11:04 * Plan of Care - [...] something to eat referring to team station. Oil Furnace Installer asked Alonzo if he knew where he was and he looked at singer songwriter with confused look on his face and did not answer. Md Holm was made aware and stated would come to the unit to assess. Irritable when answering questions. Oil Furnace Installer again asked Alonzo if he knew wherehe [...] Care - Sienna Ham RN - 08/24/2018 0360 EDT Problem: Daily Care Plan Goals Goal: [...] Care - Debi Benson RN - 08/23/2018 3564 EDT Problem: Daily Care Plan Goals Goal: [...] Care - Debi Benson RN - 08/22/2018 7905 EDT Problem: Daily Care Plan Goals Goal: [...] 08/22. Alonzo agreed that he would let singer songwriter know if headache pain did not continue [...] Team - Sonali Kaufman RN - 08/22/2018 3317 EDT Psychiatry Multidisciplinary Treatment Plan - Update [...] Abuse Program and has been referred to [facility] Treatment Team Members Resident MD: n/a RN: Debi Benson RN Therapist: MEGHAN SWARTZ MS Anatomy Professor: CISCO Guillen PharmD: Attending physician statement/signature: Based [...] Care - Julienne Suárez RN - 08/22/2018 9875 EDT Problem: Daily Care Plan Goals Goal: [...] Care - Debi Benson RN - 08/21/2018 2518 EDT Problem: Daily Care Plan Goals Goal: [...] wayne. Spoke about listening to a book [employer] in [place]- which he states is about the movie [...] Care - Chirag Kapadia RN - 08/19/2018 1255 EDT Problem: Daily Care Plan Goals Goal: Care Plan Documentation 08/19/18 0700 08/19/18 1600 Care Plan Focus Area of Focus -- Safety Goal This Shift Pt will have less discomfort -- Safety Data: Patient isolative in room this evening but was engaging in conversation with this singer songwriter regarding his difficult hopeless situation. Patient feels [...] pain persisted. I contacted pain service (beeper [id number]) again at 13:30 to discuss procedure and [...] pt will remain safe on the unit 2249-5515 Data: Frequent, Voluntary, Level 3. Pt resting [...] monitor. Has remained safe on the unit. 4935-1412: Pt appeared asleep at start of shift. [...] pain relief. Remained safe on unit. Dinora Davlaos RN 08/18/2018 14:32 * Plan of Care - Laine Pichardo RN - 08/18/2018 0414 EDT Problem: Daily Care Plan Goals Goal: Care Plan Documentation 08/18/18 0158 Care Plan Focus Area of Focus Sleep Goal This Shift sleeps 6-8 hours overnight 2452-1764 Data: Frequent, Voluntary, Level 3. Pt reported [...] time. Has remained safe on the unit. Lanie Pichardo RN 08/18/2018 4:09 * Plan of [...] routine observation. Pt resting comfortably when the singer songwriter took over his care at 2330. Pt [...] IV medications to help treat this. This singer songwriter consulted with Desiree the pharmacist as the [...] Team - Sonali Kaufman RN - 08/15/2018 0973 EDT Psychiatry Multidisciplinary Treatment Plan - Update [...] post-d/c andwhether he will be going to [facility] LOCUS Risk of Harm: Current locus of [...] Debi Benson RN Therapist: MEGHAN SWARTZ MS Anatomy Professor:CISCO Guillen PharmD: Attending physician statement/signature: Based on [...] 14:28 * Plan of Care - Venkata Hutchinson RN - 08/14/2018 0735 EDT Problem: Daily [...] Care - Janie Urban RN - 08/13/2018 7057 EDT Problem: Daily Care Plan Goals Goal: [...] anxiety continues, unrelieved by another dose of [id number] at noon. 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 [facility] Guideline: 11 days Principal Dx: F10.20 Alcohol Use Disorder Problem List: Active Hospital Problems *Suicidal ideation Depression Substance abuse ([facility]) Patient's Weaknesses: Substance use, Limited supports, [...] n/a RN: Debi Benson RN Therapist: EUGENIO Oenil Anatomy Professor: CISCO Guillen PharmD: Patient Involvement This Treatment [...] Patient will remain safe on the unit 6516-7910 Data: Locus of harm level 4. Indorsed [...] to sleep intermittently for 2.5 hours from 1657-5398. Howie Marques RN 08/10/2018 22:17 * Daily [...] very drowsy and presented with depressed affect. Meghan Swartz MS 08/10/18 * Plan of Care - Pillo Kramer RN - 08/10/2018 1127 EDT Problem: Daily Care Plan Goals Goal: Care Plan Documentation Outcome: Met This Shift 08/10/18 0800 Care Plan Focus Area of Focus Safety Goal This Shift pt will remain safe on unit Data: Care of patient 0171-5705. Pt presents this shift with a depressed [...] after using alcohol and cocaine at a libertarian and choking on food. Pt states he [...] [address] to a bar in [facility] for no reason he can think of. Pt got a DUI (2nd in a year) And was thrown into a dry out facility in [place] for the night. He was brought to hospital in [facility] [place] after reporting he was suicidal at [place]. Pt reports he has never received psychiatric [...] Info) Description 01/23/2024 10:00 EDT Office Visit [facility] General Surgery - [address] [id number] Bon Gutierrez MD [address] [place] [address], [address] [place] [id number] 09/10/2024 10:00 EDT Appointment Shaina Mejia [address] [place], [place] [id number] Scheduled Referrals Name Type Priority Associated Diagnoses [...] in this encounter Results * MISCELLANEOUS TEST, [place] (09/07/2018 12:43 EDT) Test Name Citalopram Serum 09/07/2018 13:18 EDT [facility] Result See Pathology Scanned Report in [facility]. 09/12/2018 16:25 EDT [facility] Ref Range See Pathology Scanned Report in [facility]. 09/12/2018 16:25 EDT [facility] Ref Lab Test performed by: 09/12/2018 16:25 EDT [facility] Comment: [facility] [place], [place] Specimen of unknown material (specimen) TOPOGRAPHY UNKNOWN / Unknown 09/07/2018 12:43 EDT 09/07/2018 13:18 EDT Sania THORNTON CHEMISTRY & BLOOD GA S ORDERABLES [facility] [address] [place] [address] * HEMOGLOBIN A1C (09/07/2018 6:44 EDT) Hemoglobin A1C 5.7 % 09/07/2018 8:49 EDT [facility] Comment: Reference Range: <5.7% Normal 5.7-6.4% Prediabetes =>6.5% Diagnostic for diabetes (if confirmed) Goals for glycemic control in diabetes ADA 2017 For non adults with diabetes: ?? Target <7.0% For children and adolescents with type 1 diabetes: ?? Target <7.5% More or less stringent targets may be appropriate for individual patients. Est Avg Glucose 117 mg/dl 9 8:49 EDT [facility] Comment: eAG represents the A1c result expressed as average glucose in mg/dl. Blood specimen (specimen) BLOOD SPECIMEN / Unknown 09/07/2018 6:44 EDT 09/07/2018 7:02 EDT Sania THORNTON CHEMISTRY & BLOOD GA S ORDERABLES Performing Organization Address City/State/[facility] Co de Phone Number [facility] [address] [place] [address] * RAD US LIVER WITH DOPPLER (09/06/2018 [...] 70 - 100 mg/dl 09/06/2018 18:55 EDT [facility] Drum Attendant ID [id number] 09/06/2018 18:55 EDT [facility] Comment:Test Performed by [facility] Services BLOOD SPECIMEN / Unknown 09/06/2018 16:53 EDT 09/06/2018 18:55 EDT Sonali Mills MD CHEMISTRY & BLOOD GAS ORDERABLES Performing Organization Address City/[facility]/ZIP Co de Phone Number [facility] [address] [place] [address] * (ABNORMAL) AMMONIA (09/06/2018 9:45 EDT) Ammonia 88(H) <34 umol/L 09/06/2018 10:12 EDT [facility] Blood specimen (specimen) BLOOD SPECIMEN / Unknown 09/06/2018 9:45 EDT 09/06/2018 9:55 EDT Sania THORNTON CHEMISTRY & BLOOD GA S ORDERABLES Performing Organization Address [facility] Co de Phone Number [facility] [address] [place] [address] * CREATININE (09/06/2018 9:45 EDT) Creatinine 0.76 0.66 - 1.25 mg/dl 09/06/2018 10:48 EDT [facility] GFR, Calculated 96 >60 ml/min/1.7 3m2 09/06/2018 10:48 EDT [facility] Comment: eGFR calculated using CKD-EPI equation for non Americans. Multiply eGFR by 1.16 for Americans. Blood specimen (specimen) BLOOD SPECIMEN / Unknown 09/06/2018 9:45 EDT 09/06/2018 10:15 EDT Sanai THORNTON CHEMISTRY & BLOOD GA S ORDERABLES Performing Organization Address [facility]/ZIP Co de Phone Number [facility] [address] [place] [address] * BUN (09/06/2018 9:45 EDT) BUN 18 10 - 26 mg/dl 09/06/2018 10:48 EDT [facility] Blood specimen (specimen) BLOOD SPECIMEN / Unknown 09/06/2018 9:45 EDT 09/06/2018 10:15 EDT Sania THORNTON CHEMISTRY & BLOOD GA S ORDERABLES Performing Organization Address City/[facility]/ZIP Co de Phone Number [facility] [address] [place] [phone] * LIPID PROFILE (INCLUDES CHOLESTEROL, TRIGLYCERIDES, HDL, LDL) (09/02/2018 11:33 EDT) Cholesterol 178 mg/dl 09/02/2018 12:11 [facility] Comment: Desirable:<200 Borderline High:200-239 High:>zs=739 Triglycerides 45 mg/dl 09/02/2018 12:11 [facility] Comment: Normal:<150 Borderline High:150-199 High:200-499 Very High:>vj=691 HDL 85 mg/dl 09/02/2018 12:11 [facility] Comment: Low:<40 Normal:40-60 Desirable: >60 LDL, Calculated 84 mg/dl 9 12:11 [facility] Comment: Optimal:<100 Near Optimal:100-129 Borderline High:130-159 High:160-189 Very High:>tk=738 Chol/HDL Ratio 2.1 09/02/2018 12:11 [facility] Fasting? Unknown 09/02/2018 12:11 [facility] Non HDL Cholesterol 93 mg/dl 09/02/2018 12:11 [facility] Comment: Desirable:<130 Borderline:130-159 High: 160-189 Very High: >bo=323 Blood specimen (specimen) BLOOD SPECIMEN / Unknown 09/02/2018 11:33 EDT 09/02/2018 11:43 EDT Katina Garzon MD CHEMISTRY & BLOOD GA S ORDERABLES Performing Organization Address City/[facility]/ZIP Co de Phone Number [facility] [address] [place] [address] * (ABNORMAL) COMPLETE BLOOD COUNT (09/02/2018 11:33 EDT) WBC 3.03(L) 4.0 - 10.4 K/cmm 09/02/2018 11:51 EDT [facility] RBC 4.29(L) 4.36 - 5.78 M/cmm 09/02/2018 11:51 [facility] Hemoglobin 10.7(L) 13.8 - 17.3 gm/dl 09/02/2018 11:51 [facility] HCT 34.4(L) 39.5 - 50.2 % 09/02/2018 11:51 [facility] MCV 80(L) 81 - 95 fl 09/02/2018 11:51 [facility] MCH 24.9(L) 27.6 - 33.0 pg 09/02/2018 11:51 [facility] Hypochromia 1+ 09/02/2018 11:51 [facility] MCHC 31.1(L) 32.8 - 36.4 gm/dl 09/02/2018 11:51 [facility] RDW-CV 19.1(H) <14.2 % 09/02/2018 11:51 [facility] RDW-SD 54.9(H) <46.0 fl 09/02/2018 11:51 [facility] Anisocytosis 2+ 09/02/2018 11:51 [facility] PLT 133(L) 141 - 377 K/cmm 09/02/2018 11:51 [facility] MPV 9.6 9.5 - 12.7 fl 09/02/2018 11:51 [facility] Blood specimen (specimen) BLOOD SPECIMEN / Unknown 09/02/2018 11:33 EDT 09/02/2018 11:43 EDT Katina Garzon MD HEMATOLOGY & PF4 ORD ERABLES [facility] [address] [place] [address] * (ABNORMAL) PROTIME (09/02/2018 11:33 EDT) Pro Time 13.8(H) 10.3 - 13.4 secs 09/02/2018 11:59 EDT [facility] I.N.R. 1.2(H) 0.9 - 1.1 Ratio 09/02/2018 11:59 EDT [facility] Comment: Moderate Intensity Coumadin INR = 2.0-3.0 Adjustments in anticoagulant therapy dose should be based upon the INR and NOT the Pro Time. Blood specimen (specimen) BLOOD SPECIMEN / Unknown 09/02/2018 11:33 EDT 09/02/2018 11:43 EDT Katina Garzon MD HEMATOLOGY & PF4 ORD ERABLES Performing Organization Address [facility] Co de Phone Number [facility] [address] [place] [address] * BILIRUBIN, TOTAL (09/02/2018 11:33 EDT) Bilirubin, Total 0.9 <1.4 mg/dl 09/02/2018 12:11 EDT [facility] Blood specimen (specimen) BLOOD SPECIMEN / Unknown 09/02/2018 11:33 EDT 09/02/2018 11:43 EDT Katina Garzon MD CHEMISTRY & BLOOD GA S ORDERABLES Performing Organization Address [facility] Co de Phone Number [facility] [address] [place] [address] * ALT (09/02/2018 11:33 EDT) ALT 29 21 - 72 U/L 09/02/2018 12:11 EDT [facility] Blood specimen (specimen) BLOOD SPECIMEN / Unknown 09/02/2018 11:33 EDT 09/02/2018 11:43 EDT Katina Garzon MD CHEMISTRY & BLOOD GA S ORDERABLES Performing Organization Address City/[facility] Co de Phone Number [facility] [address] [place] [address] * AST (09/02/2018 11:33 EDT) AST 33 15 - 46 U/L 09/02/2018 12:11 EDT [facility] Blood specimen (specimen) BLOOD SPECIMEN / Unknown 09/02/2018 11:33 EDT 09/02/2018 11:43 EDT Katina Garzon MD CHEMISTRY & BLOOD GA S ORDERABLES Performing Organization Address [facility] de Phone Number [facility] [address] [place] [address] * CREATININE (09/02/2018 11:33 EDT) Creatinine 0.80 0.66 - 1.25 mg/dl 09/02/2018 12:11 EDT [facility] GFR, Calculated 94 >60 ml/min/1.7 3m2 09/02/2018 12:11 EDT [facility] Comment: eGFR calculated using CKD-EPI equation for non Americans. Multiply eGFR by 1.16 for Americans. Blood specimen (specimen) BLOOD SPECIMEN / Unknown 09/02/2018 11:33 EDT 09/02/2018 11:43 EDT Katina Garzon MD CHEMISTRY & BLOOD GA S ORDERABLES Performing Organization Address City/[facility] Co de Phone Number [facility] [address] [place] [address] * BUN (09/02/2018 11:33 EDT) BUN 17 10 - 26 mg/dl 09/02/2018 12:11 EDT [facility] Blood specimen (specimen) BLOOD SPECIMEN / Unknown 09/02/2018 11:33 EDT 09/02/2018 11:43 EDT Katina Garzon MD CHEMISTRY & BLOOD GA S ORDERABLES Performing Organization Address City/[facility] Co de Phone Number [facility] [address] [place] [address] * ELECTROLYTES (09/02/2018 11:33 EDT) Sodium 139 136 - 145 mEq/L 09/02/2018 12:11 EDT [facility] Potassium 4.5 3.5 - 5.0 mEq/L 09/02/2018 12:11 EDT [facility] Chloride 103 96 - 110 mEq/L 09/02/2018 12:11 EDT [facility] CO2 25 22 - 32 mEq/L 09/02/2018 12:11 EDT [facility] Blood specimen (specimen) BLOOD SPECIMEN / Unknown 09/02/2018 11:33 EDT 09/02/2018 11:43 EDT Katina Garzon MD CHEMISTRY & BLOOD GA S ORDERABLES Performing Organization Address [facility] de Phone Number [facility] [address] [place] [address] * MR HEAD WO CONTRAST (09/02/2018 8:49 [...] Procedure Note Alonzo Arriola MD, MD - 05/25/2019 MR HEAD WO CONTRAST 09/02/2018 8:49 AM [...] 23:51 EDT) Result Negative 09/02/2018 9:24 EDT [facility] Stool specimen (specimen) STOOL SPECIMEN / Unknown 09/01/2018 23:51 EDT 09/02/2018 8:22 EDT Sania THORNTON MICROBIOLOGY - GENER AL ORDERABLES [facility] [address] [place] [address] * CT HEAD WO CONTRAST (09/01/2018 16:50 [...] or CT perfusion may be helpful. Sania DANIELS IM CT ORDERABLES * (ABNORMAL) GLUCOSE, GLUCOMETER (09/01/2018 16:33 EDT) Glucose, Fingerstick 111(H) 70 - 100 mg/dl 09/02/2018 3:31 EDT [facility] Drum Attendant ID [id number] 09/02/2018 3:31 EDT [facility] Comment:Test Performed by [facility] BLOOD SPECIMEN / Unknown 09/01/2018 16:33 EDT 09/02/2018 3:31 EDT Sonali Mills MD CHEMISTRY & BLOOD GAS ORDERABLES Performing Organization Address City/[facility]/ZIP Co de Phone Number [facility] [address] [place] [address] * (ABNORMAL) AMMONIA (09/01/2018 11:20 EDT) Ammonia 74(H) <34 umol/L 09/01/2018 12:10 EDT [facility] Blood specimen (specimen) BLOOD SPECIMEN / Unknown 09/01/2018 11:20 EDT 09/01/2018 11:36 EDT Sania THORNTON CHEMISTRY & BLOOD GA S ORDERABLES Performing Organization Address [facility] Co de Phone Number [facility] [address] [place] [address] * ELECTROLYTES (09/01/2018 11:17 EDT) Sodium 138 136 - 145 mEq/L 09/01/2018 14:10 EDT [facility] Potassium 4.4 3.5 - 5.0 mEq/L 09/01/2018 14:10 EDT [facility] Comment: Interpret results with caution. Prolonged sample storage may alter result. Chloride 104 96 - 110 mEq/L 09/01/2018 14:10 EDT [facility] CO2 27 22 - 32 mEq/L 09/01/2018 14:10 EDT [facility] Comment: Interpret results with caution. Prolonged sample storage may alter result. BLOOD SPECIMEN / Unknown 09/01/2018 11:17 EDT 09/01/2018 11:37 EDT Sonali Mills MD CHEMISTRY & BLOOD GAS ORDERABLES Performing Organization Address City/[facility] Co de Phone Number [facility] [address] [place] [address] * (ABNORMAL) COMPLETE BLOOD COUNT (09/01/2018 11:17 EDT) WBC 2.95(L) 4.0 - 10.4 K/cmm 09/01/2018 11:56 EDT [facility] RBC 4.26(L) 4.36 - 5.78 M/cmm 09/01/2018 11:56 [facility] Hemoglobin 10.7(L) 13.8 - 17.3 gm/dl 09/01/2018 11:56 [facility] HCT 34.6(L) 39.5 - 50.2 % 09/01/2018 11:56 [facility] MCV 81 81 - 95 fl 09/01/2018 11:56 [facility] MCH 25.1(L) 27.6 - 33.0 pg 09/01/2018 11:56 [facility] Hypochromia 1+ 09/01/2018 11:56 [facility] MCHC 30.9(L) 32.8 - 36.4 gm/dl 09/01/2018 11:56 [facility] RDW-CV 18.9(H) <14.2 % 09/01/2018 11:56 [facility] RDW-SD 55.0(H) <46.0 fl 09/01/2018 11:56 [facility] Anisocytosis 1+ 09/01/2018 11:56 [facility] PLT 133(L) 141 - 377 K/cmm 09/01/2018 11:56 [facility] MPV 9.6 9.5 - 12.7 fl 09/01/2018 11:56 [facility] BLOOD SPECIMEN / Unknown 09/01/2018 11:17 EDT 09/01/2018 11:37 EDT Sonali Mills MD HEMATOLOGY & PF4 O RDERABLES [facility] [address] [place] [address] * HOLD SST (09/01/2018 11:17 EDT) Hold SST Hold for further testing. Specimen will be held for 5 days. 09/01/2018 11:37 [facility] BLOOD SPECIMEN / Unknown 09/01/2018 11:17 EDT 09/01/2018 11:37 EDT Sonali Mills MD LAB INFO SERVICE A ND SUPPORT & PHONE RESULT Performing Organization Address City/[facility]/ZIP Co de Phone Number [facility] [address] [place] [address] * HOLD LAVENDER TOP (09/01/2018 11:17 EDT) Hold Purple Top EDTA for hematology will be discarded after 48 hours, differential not available after 12 hours. 09/01/2018 11:37 EDT [facility] BLOOD SPECIMEN / Unknown 09/01/2018 11:17 EDT 09/01/2018 11:37 EDT Sonali Mills MD LAB INFO SERVICE A ND SUPPORT & PHONE RESULT Performing Organization Address [facility] Co de Phone Number [facility] [address] [place] [address] * URINE CULTURE IF POSITIVE (09/01/2018 10:53 EDT) Culture if Indicated Culture not indicated by urinalysis results. 09/01/2018 13:27 EDT [facility] Urine specimen (specimen) TOPOGRAPHY UNKNOWN / Unknown 09/01/2018 10:53 EDT 09/01/2018 13:04 EDT Sania THORNTON MICROBIOLOGY - GENER AL ORDERABLES Performing Organization Address [facility]/ZIP Co de Phone Number [facility] [address] [place] [address] * UA, CHEMICAL AND SEDIMENT ANALYSIS (DIPSTICK AND MICROSCOPIC) (09/01/2018 10:53 EDT) Color, UA Yellow 09/01/2018 13:27 EDT [facility] Clarity, UA Clear 09/01/2018 13:27 EDT [facility] Glucose, UA Neg Neg 09/01/2018 13:27 EDT [facility] Bilirubin, UA Neg Neg 09/01/2018 13:27 [facility] Ketones, UA Neg Neg 09/01/2018 13:27 [facility] Refractometer SG,Urine 1.018 1.001 - 1.035 09/01/2018 13:27 [facility] Blood, UA Neg Neg 09/01/2018 13:27 [facility] pH, UA 7.0 4.6 - 8.0 09/01/2018 13:27 [facility] Protein, UA Neg Neg 09/01/2018 13:27 [facility] Urobilinogen, UA Normal Normal E.U./dl 09/01/2018 13:27 [facility] Nitrite, UA Neg Neg 09/01/2018 13:27 [facility] Leuk Esterase Neg Neg 09/01/2018 13:27 [facility] UA Method Used 09/01/2018 10:10 [facility] Comment: Testing performed using [employer]. Urine RBC Count Automated 0 to 2 0 to 2 /HPF 09/01/2018 13:27 [facility] Urine WBC Count Automated 0 to 3 0 to 3 /HPF 09/01/2018 13:27 [facility] Urine Squamous Epithelial Cell Count, Automated None seen None seen /LPF 09/01/2018 13:27 [facility] Urine Hyaline Casts, Automated < or = 10 < or = 10 /LPF 09/01/2018 13:27 [facility] Urine Bacteria Count, Automated None seen None seen 09/01/2018 13:27 [facility] UA Comment Sediment results 09/01/2018 13:27 [facility] Comment: are unreliable on urines unrefrig >2hrs or refrig >8hrs. Urine specimen (specimen) URINE / Unknown 09/01/2018 10:53 EDT 09/01/2018 13:04 EDT Sania THORNTON URINALYSIS ORDERABLE S [facility] [address] [place] [id number] * DRUG SCREEN 11, URINE (09/01/2018 10:53 EDT) Amphetamine Screen Negative screen. 09/01/2018 14:55 [facility] Comment: Confirmation testing available upon request. Suitable for medical purposes only. Will not detect all drugs within class. Cutoff = 500 ng/ml Specimen type is urine. Barbituate Screen Negative screen. 09/01/2018 14:55 [facility] Comment: Confirmation testing available upon request. Suitable for medical purposes only. Will not detect all drugs within class. Cutoff = 200 ng/ml Specimen type is urine. Benzodiazepine Scrn Negative screen. 09/01/2018 14:55 [facility] Comment: Confirmation testing available upon request. Suitable for medical purposes only. Will not detect all drugs within class. Cutoff = 150 ng/ml Specimen type is urine. Cannabinoids Screen Negative screen. 09/01/2018 14:55 [facility] Comment: Confirmation testing available upon request. Suitable for medical purposes only. Will not detect all drugs within class. Cutoff = 50 ng/ml Specimen type is urine. Methadone Screen Negative screen. 09/01/2018 14:55 [facility] Comment: Confirmation testing available upon request. Suitable for medical purposes only. Will not detect all drugs within class. Cutoff = 200 ng/ml Specimen type is urine. Opiates Screen Negative screen. 09/01/2018 14:55 [facility] Comment: Confirmation testing available upon request. Suitable for medical purposes only. Will not detect all drugs within class. Cutoff = 100 ng/ml Specimen type is urine. Oxycodone Screen Negative screen. 09/01/2018 14:55 [facility] Comment: Confirmation testing available upon request. Suitable for medical purposes only. Will not detect all drugs within class. Cutoff = 100 ng/ml Specimen type is urine. Cocaine Metabolites Negative screen. 09/01/2018 14:55 [facility] Comment: Confirmation testing available upon request. Suitable for medical purposes only. Will not detect all drugs within class. Cutoff = 150 ng/ml Specimen type is urine. Buprenorph and Metab Negative screen. 09/01/2018 14:55 [facility] Comment: Confirmation testing available upon request. Suitable for medical purposes only. Will not detect all drugs within class. Cutoff = 10 ng/ml Specimen type is urine. Methamphetamine Scrn Negative screen. 09/01/2018 14:55 EDT [facility] Comment: Confirmation testing available upon request. Suitable for medical purposes only. Will not detect all drugs within class. Cutoff = 500 ng/ml Specimen type is urine. Propoxyphene Screen Negative screen. 09/01/2018 14:55 EDT [facility] Comment: Confirmation testing available upon request. Suitable for medical purposes only. Will not detect all drugs within class. Cutoff = 300 ng/ml Specimen type is urine. Urine specimen (specimen) URINE / Unknown 09/01/2018 10:53 EDT 09/01/2018 13:04 EDT Sania THORNTON GEN LAB UNIT COLLECT ORDERABLES Performing Organization Address City/[facility] Co de Phone Number [facility] [address] [place] [address] * INPATIENT ADD-ON (09/01/2018 10:30 EDT) Tests to be added CBC,ELECTR OLYTES 09/01/2018 10:26 EDT [facility] Number for problems [id number] 09/01/2018 11:51 EDT [facility] Accession number [id number] 09/01/2018 11:51 EDT [facility] TOPOGRAPHY UNKNOWN / Unknown 09/01/2018 10:30 EDT 09/01/2018 11:50 EDT Sania THORNTON HEMATOLOGY & PF4 ORD ERABLES Performing Organization Address City/[facility] Co de Phone Number [facility] [address] [place] [address] * (ABNORMAL) AMMONIA (08/25/2018 10:30 EDT) Ammonia 56(H) <34 umol/L 08/25/2018 10:56 EDT [facility] Blood specimen (specimen) BLOOD SPECIMEN / Unknown 08/25/2018 10:30 EDT 08/25/2018 10:40 EDT Marko Mckeon MD CHEMISTRY & BLOOD GA S ORDERABLES [facility] [address] [place] [address] * NEPHROLOGY PROFILE (INCLUDES BUN, CREATININE, CALCULATED GFR, ELECTROLYTES, CALCIUM, PHOSPHORUS, ALBUMIN) (08/25/2018 10:30 EDT) Sodium 141 136 - 145 mEq/L 08/25/2018 10:59 [facility] Potassium 4.2 3.5 - 5.0 mEq/L 08/25/2018 10:59 [facility] Chloride 110 96 - 110 mEq/L 08/25/2018 10:59 [facility] CO2 23 22 - 32 mEq/L 08/25/2018 10:59 [facility] BUN 19 10 - 26 mg/dl 08/25/2018 10:59 [facility] Creatinine 0.77 0.66 - 1.25 mg/dl 08/25/2018 10:59 [facility] GFR, Calculated 95 >60 ml/min/1.7 3m2 08/25/2018 10:59 [facility] Comment: eGFR calculated using CKD-EPI equation for non Americans. Multiply eGFR by 1.16 for Americans. Calcium 10.0 8.5 - 10.5 mg/dl 08/25/2018 10:59 [facility] Calculated Calcium 9.8 8.5 - 10.5 mg/dl 08/25/2018 10:59 [facility] Phosphorus 3.8 2.5 - 4.5 mg/dl 08/25/2018 10:59 [facility] Albumin 4.2 3.4 - 4.9 g/dl 08/25/2018 10:59 [facility] Blood specimen (specimen) BLOOD SPECIMEN / Unknown 08/25/2018 10:30 EDT 08/25/2018 10:40 EDT Marko Mckeon MD PACKAGES & DNA PROBE ORDERABLES Performing Organization Address [facility] Co de Phone Number [facility] [address] [place] [address] * CK (08/25/2018 10:30 EDT) [facility] CK 77 0 - 250 U/L 08/25/2018 10:59 EDT [facility] Blood specimen (specimen) BLOOD SPECIMEN / Unknown 08/25/2018 10:30 EDT 08/25/2018 10:40 EDT Marko Mckeon MD CHEMISTRY & BLOOD GA S ORDERABLES Performing Organization Address [facility] de Phone Number [facility] [address] [place] [address] * (ABNORMAL) PROTIME (08/21/2018 17:30 EDT) [facility] Pro Time 15.1(H) 10.3 - 13.4 secs 08/21/2018 18:54 EDT [facility] I.N.R. 1.3(H) 0.9 - 1.1 Ratio 08/21/2018 18:54 EDT [facility] Comment: Moderate Intensity Coumadin INR = 2.0-3.0 Adjustments in anticoagulant therapy dose should be based upon the INR and NOT the Pro Time. Blood specimen (specimen) BLOOD SPECIMEN / Unknown 08/21/2018 17:30 EDT 08/21/2018 18:30 EDT Sania DANIELSBS HEMATOLOGY & PF4 ORD ERABLES Performing Organization Address [facility]/ZIP Co de Phone Number [facility] [address] [place] [address] * BILIRUBIN DIRECT/INDIRECT (08/21/2018 17:30 EDT) [facility] Conjugated Bilirubin 0.0 0.0 - 0.3 mg/dl 08/21/2018 19:11 EDT [facility] Unconjugated Bilirubin 0.5 0.0 - 1.1 mg/dl 08/21/2018 19:11 EDT [facility] Blood specimen (specimen) BLOOD SPECIMEN / Unknown 08/21/2018 17:30 EDT 08/21/2018 18:30 EDT Sania THORNTON CHEMISTRY & BLOOD GA S ORDERABLES [facility] [address] [place] [address] * CREATININE (08/20/2018 7:12 EDT) Creatinine 0.74 0.66 - 1.25 mg/dl 08/20/2018 8:36 EDT [facility] GFR, Calculated 97 >60 ml/min/1.7 3m2 08/20/2018 8:36 EDT [facility] Comment: eGFR calculated using CKD-EPI equation for non Americans. Multiply eGFR by 1.16 for Americans. Blood specimen (specimen) BLOOD SPECIMEN / Unknown 08/20/2018 7:12 EDT 08/20/2018 8:08 EDT Arturo Keller MD CHEMISTRY & BLOOD GA S ORDERABLES Performing Organization Address City/[facility]/ZIP Co de Phone Number [facility] [address] [place] [address] * AST (08/20/2018 7:12 EDT) AST 26 15 - 46 U/L 08/20/2018 8:36 EDT [facility] Blood specimen (specimen) BLOOD SPECIMEN / Unknown 08/20/2018 7:12 EDT 08/20/2018 8:08 EDT Arturo Keller MD CHEMISTRY & BLOOD GA S ORDERABLES Performing Organization Address City/[facility]/ZIP Co de Phone Number [facility] [address] [place] [address] * ALT (08/20/2018 7:12 EDT) ALT 23 21 - 72 U/L 08/20/2018 8:36 EDT [facility] Blood specimen (specimen) BLOOD SPECIMEN / Unknown 08/20/2018 7:12 EDT 08/20/2018 8:08 EDT A Praful Keller MD CHEMISTRY & BLOOD GA S ORDERABLES [facility] [address] [place] [address] * (ABNORMAL) COMPLETE BLOOD COUNT (08/20/2018 7:12 EDT) WBC 2.32(L) 4.0 - 10.4 K/cmm 08/20/2018 8:18 [facility] RBC 3.69(L) 4.36 - 5.78 M/cmm 08/20/2018 8:18 [facility] Hemoglobin 9.3(L) 13.8 - 17.3 gm/dl 08/20/2018 8:18 [facility] HCT 29.5(L) 39.5 - 50.2 % 08/20/2018 8:18 [facility] MCV 80(L) 81 - 95 fl 08/20/2018 8:18 [facility] MCH 25.2(L) 27.6 - 33.0 pg 08/20/2018 8:18 [facility] Hypochromia 1+ 08/20/2018 8:18 [facility] MCHC 31.5(L) 32.8 - 36.4 gm/dl 08/20/2018 8:18 [facility] RDW-CV 16.4(H) <14.2 % 08/20/2018 8:18 [facility] RDW-SD 46.9(H) <46.0 fl 08/20/2018 8:18 [facility] PLT 121(L) 141 - 377 K/cmm 08/20/2018 8:18 [facility] MPV 9.5 9.5 - 12.7 fl 08/20/2018 8:18 [facility] Blood specimen (specimen) BLOOD SPECIMEN / Unknown 08/20/2018 7:12 EDT 08/20/2018 8:08 EDT A Praful Keller MD HEMATOLOGY & PF4 ORD ERABLES [facility] Organization Address City/State/ZIP Co de Phone Number [facility] [address] [place] [address] * CT HEAD WO CONTRAST (08/15/2018 15:44 [...] 70 - 180 nmol/L 08/17/2018 8:07 EDT [facility] Comment: (Note) . ADDITIONAL INFORMATION This test was developed and its performance characteristics determined by [facility] in a manner consistent with CLIA requirements. This test has not been cleared or approved by the U.S. Food and Drug Administration. Performed by: [facility]: [address], [place] [address] Fasting? Unknown 08/11/2018 10:17 EDT [facility] Blood specimen (specimen) BLOOD SPECIMEN / Unknown 08/11/2018 10:10 EDT 08/11/2018 10:17 EDT Sania THORNTON CHEMISTRY & BLOOD GA S ORDERABLES [facility] [address] [place] [address] * (ABNORMAL) AMMONIA (08/11/2018 10:10 EDT) Ammonia 61(H) <34 umol/L 08/11/2018 10:37 EDT [facility] Blood specimen (specimen) BLOOD SPECIMEN / Unknown 08/11/2018 10:10 EDT 08/11/2018 10:17 EDT Sania THORNTON CHEMISTRY & BLOOD GA S ORDERABLES Performing Organization Address City/[facility]/ZIP Co de Phone Number [facility] [address] [place] [address] * INPATIENT ADD-ON (08/10/2018 9:05 EDT) Tests to be added THIAMINE LEVEL 08/10/2018 9:04 EDT [facility] Comment:TSH Number for problems SBP3 08/10/2018 9:28 EDT [facility] Accession number NO PURPLE PROTECTED FROM LIGHT, TSH3 ALREADY RUN 08/09. SPOKE WITH JAX. 08/10/2018 9:28 EDT [facility] TOPOGRAPHY UNKNOWN / Unknown 08/10/2018 9:05 EDT 08/10/2018 9:27 EDT Sania THORNTON HEMATOLOGY & PF4 ORD ERABLES Performing Organization Address City/[facility]/ZIP Co de Phone Number [facility] [address] [place] [address] * (ABNORMAL) COMPLETE BLOOD COUNT AND DIFFERENTIAL (08/09/2018 21:16 EDT) WBC 2.59(L) 4.0 - 10.4 K/cmm 08/09/2018 21:56 EDT [facility] RBC 3.20(L) 4.36 - 5.78 M/cmm 08/09/2018 21:56 T [facility] Hemoglobin 8.3(L) 13.8 - 17.3 gm/dl 08/09/2018 21:56 EDT [facility] HCT 26.1(L) 39.5 - 50.2 % 08/09/2018 21:56 EDT [facility] MCV 82 81 - 95 fl 08/09/2018 21:56 EDT [facility] MCH 25.9(L) 27.6 - 33.0 pg 08/09/2018 21:56 [facility] Hypochromia 1+ 08/09/2018 21:56 [facility] MCHC 31.8(L) 32.8 - 36.4 gm/dl 08/09/2018 21:56 [facility] RDW-CV 15.5(H) <14.2 % 08/09/2018 21:56 [facility] RDW-SD 46.5(H) <46.0 fl 08/09/2018 21:56 [facility] PLT 105(L) 141 - 377 K/cm 08/09/2018 21:56 [facility] MPV 9.3(L) 9.5 - 12.7 fl 08/09/2018 21:56 [facility] % Neutrophils 53.2 % 08/09/2018 21:56 [facility] % Lymphocytes 29.0 % 08/09/2018 21:56 [facility] % Monocytes 13.1 % 08/09/2018 21:56 [facility] % Eosinophils 3.9 % 08/09/2018 21:56 [facility] % Basophils 0.4 % 08/09/2018 21:56 [facility] % Immature Grans 0.4 % 08/09/2018 21:56 [facility] ABS Neutrophils 1.38(L) 2.20 - 8.85 K/cm 08/09/2018 21:56 [facility] ABS Lymphs 0.75(L) 1.09 - 3.30 K/cm 08/09/2018 21:56 [facility] ABS Monocytes 0.34 0.1 - 0.8 K/cm 08/09/2018 21:56 [facility] ABS Eosinophils 0.10 0.03 - 0.61 K/cm 08/09/2018 21:56 [facility] ABS Basophils 0.01 0.01 - 0.11 K/[facility] 08/09/2018 21:56 EDT [facility] ABS Immature Grans 0.01 0 - 0.06 K/cmm 08/09/2018 21:56 EDT [facility] Type of Diff: Automated 08/09/2018 21:56 EDT [facility] Blood specimen (specimen) BLOOD SPECIMEN / Unknown 08/09/2018 21:16 EDT 08/09/2018 21:47 EDT Sania THORNTON PACKAGES & DNA PROBE ORDERABLES Performing Organization Address City/[facility]/ZIP Co de Phone Number [facility] [address] [place] [address] * TSH (08/09/2018 21:16 EDT) TSH 1.09 0.47 - 4.68 uIU/ml 08/09/2018 22:52 EDT [facility] Comment: The results of this assay can be falsely lowered due to the consumption of Biotin. Blood specimen (specimen) BLOOD SPECIMEN / Unknown 08/09/2018 21:16 EDT 08/09/2018 21:47 EDT Sania THORTNON CHEMISTRY & BLOOD GA S ORDERABLES Performing Organization Address [facility] Co de Phone Number [facility] [address] [place] [address] * ALT (08/09/2018 21:16 EDT) ALT 23 21 - 72 U/L 08/09/2018 22:16 EDT [facility] Blood specimen (specimen) BLOOD SPECIMEN / Unknown 08/09/2018 21:16 EDT 08/09/2018 21:47 EDT Sania THORNTON CHEMISTRY & BLOOD GA S ORDERABLES Performing Organization Address [facility] Co de Phone Number [facility] [address] [place] [address] * AST (08/09/2018 21:16 EDT) AST 32 15 - 46 U/L 08/09/2018 22:16 EDT [facility] Blood specimen (specimen) BLOOD SPECIMEN / Unknown 08/09/2018 21:16 EDT 08/09/2018 21:47 EDT Sania Dayharish [facility] CHEMISTRY & BLOOD GA S ORDERABLES Performing Organization Address City/[facility]/ZIP Co de Phone Number [facility] [address] [place] [address] * ALBUMIN (08/09/2018 21:16 EDT) Albumin 3.7 3.4 - 4.9 g/dl 08/09/2018 22:16 EDT [facility] Blood specimen (specimen) BLOOD SPECIMEN / Unknown 08/09/2018 21:16 EDT 08/09/2018 21:47 EDT Sania Sifuentes [facility] CHEMISTRY & BLOOD GA S ORDERABLES Performing Organization Address City/[facility]/ZIP Co de Phone Number [facility] [address] [place] [address] * GGT (08/09/2018 21:16 EDT) GGT 29 15 - 73 U/L 08/09/2018 22:16 EDT [facility] Blood specimen (specimen) BLOOD SPECIMEN / Unknown 08/09/2018 21:16 EDT 08/09/2018 21:47 EDT Sania Dayharish [facility] CHEMISTRY & BLOOD GA S ORDERABLES Performing Organization Address City/[facility]/ZIP Co de Phone Number [facility] [address] [place] [address] * ALKALINE PHOSPHATASE (08/09/2018 21:16 EDT) Total Alkaline Phosphatase 81 38 - 126 U/L 08/09/2018 22:16 EDT [facility] Blood specimen (specimen) BLOOD SPECIMEN / Unknown 08/09/2018 21:16 EDT 08/09/2018 21:47 EDT Sania DANIELS CHEMISTRY & BLOOD GA S ORDERABLES Performing Organization Address City/[facility]/ZIP Co de Phone Number [facility] [address] [place] [address] * (ABNORMAL) CREATININE (08/09/2018 21:16 EDT) Creatinine 0.65(L) 0.66 - 1.25 mg/dl 08/09/2018 22:16 EDT [facility] GFR, Calculated 102 >60 ml/min/1.7 3m2 08/09/2018 22:16 EDT [facility] Comment: eGFR calculated using CKD-EPI equation for non Americans. Multiply eGFR by 1.16 for Americans. Blood specimen (specimen) BLOOD SPECIMEN / Unknown 08/09/2018 21:16 EDT 08/09/2018 21:47 EDT Sania DANIELS CHEMISTRY & BLOOD GA S ORDERABLES Performing Organization Address City/[facility]/ZIP Co de Phone Number [facility] [address] [place] [address] * BUN (08/09/2018 21:16 EDT) BUN 15 10 - 26 mg/dl 08/09/2018 22:16 EDT [facility] Blood specimen (specimen) BLOOD SPECIMEN / Unknown 08/09/2018 21:16 EDT 08/09/2018 21:47 EDT Sania Sifuentes [facility] CHEMISTRY & BLOOD GA S ORDERABLES [facility] [address] [place] [address] * ELECTROLYTES (08/09/2018 21:16 EDT) Sodium 138 136 - 145 mEq/L 08/09/2018 22:16 EDT [facility] Potassium 4.0 3.5 - 5.0 mEq/L 08/09/2018 22:16 EDT [facility] Chloride 106 96 - 110 mEq/L 08/09/2018 22:16 EDT [facility] CO2 24 22 - 32 mEq/L 08/09/2018 22:16 EDT [facility] Blood specimen (specimen) BLOOD SPECIMEN / Unknown 08/09/2018 21:16 EDT 08/09/2018 21:47 EDT Sania Sifuentes [facility] CHEMISTRY & BLOOD GA S ORDERABLES [facility] [address] [place] [address] * (ABNORMAL) SCREENING GLUCOSE (08/09/2018 21:16 EDT) Glucose, Screening 104(H) 70 - 100 mg/dl 08/09/2018 22:16 EDT [facility] Blood specimen (specimen) BLOOD SPECIMEN / Unknown 08/09/2018 21:16 EDT 08/09/2018 21:47 EDT Sania Sifuentes [facility] CHEMISTRY & BLOOD GA S ORDERABLES Performing Organization Address City/State/[facility] Co de Phone Number [facility] [address] [place] [address] documented in this encounter Visit Diagnoses Diagnosis Suicidal ideation- Primary Depression, unspecified depression type Substance abuse ([facility]) Other, mixed, or unspecified nondependent drug abuse, unspecified Suicidal ideation Other migraine with status migrainosus, not intractable Depression Depressive disorder, not elsewhere classified Substance abuse ([facility]) Other, mixed, or unspecified nondependent drug abuse, [...] DAILY, First dose (after last modification) on Tue08/26/18 at 0145, Until Discontinued Given 08/26/2018 20:26 [...] mg, oral, NOW X1, 1 dose, On Tue08/12/18 at 1130, Routine Given 08/12/2018 11:21 EDT [...] mg, oral, NOW X1, 1 dose, On Tue08/26/18 at 0245, Routine Given 08/26/2018 2:36 EDT [...] Until Discontinued, Routine 0810 (Given - Provider: uJdy Hull RN) 0926 (Given - Provider: Shelia [...] RN) 0926 (Given - Provider: Shelia Rowe, MELY) 0906 (Given - Provider: Declan Angeles RN) PRN Medication Order 09/10/2018 09/11/2018 09/12/2018 acetaminophen (TYLENOL) tablet 500 mg 500 mg, oral, EVERY 6 HOURS PRN, Starting on 08/13/18 at 1445, Until Tu09/12/18 at 1303, Pain, Routine lactulose (CHRONULAC) 20 [...] 08/09/2018 documented in this encounter Care Teams Technical Internship Relationship Specialty Start Date End Date Laurie Wiggins MD PCP - General 05/08/18 03/25/19 documented as of this encounter
--- OUTSIDE RECORDS SUMMARY | 2024-01-17 15:37 | XMS_ITS | Encounter Summary ---
Author Organization [facility] Address [address] [place] [address] Care Team Providers Care Portable Machine Sander Name Role Phone Elissa Alejo PA-C Primary Care Provider [phone] Reason for Visit * Reason Onset Date Comments Appointment Related 12/26/2017 Cancel 12/27 US and OV Encounter Details Date Type Department Care Team (Late st Contact Info) Description 12/26/2017 Telephone [facility] Interventional Radiology - [address] [address] Guicho Rosales MD 111 [facility] 1 [place] [address] Appointment Related (Cancel 12/27 US [...] [facility] General Surgery - [address] [phone] Bon Gutirerez MD 111 [facility], [address] [place] [phone] 09/10/2024 10:00 EDT Appointment Shaina Bergeron [address] [phone] documented as of this encounter Visit Diagnoses Not on filedocumented in this encounter Care Teams Portable Machine Sander Relationship Specialty Start Date End Date Elissa Alejo PA-C [address] [place] [address] MD [place] [phone] PCP - General 11/09/16 05/07/18 documented as of this encounter
--- OUTSIDE RECORDS SUMMARY | 2024-01-17 15:38 | XMS_ITS | Encounter Summary ---
Author Organization [facility] Address [address] [place] [address] Care Team Providers Care Transmission Calibration Engineer Name Role Phone Sari Salgado MD Primary Care Provider [phone] Reason for Referral * Radiology Services (Routine) - Closed Specialty Diagnoses / Procedures [facility] Referred To Contact Diagnoses Alcoholic cirrhosis of liver without ascites (HCC-CMS) Procedures RAD US DOPPLER VISCERAL LIMITED Guicho Rosales MD [address] [place] [phone] Referral ID Status Reason Start Date Expiration Date Visits Re quested Visits Authorized [id number] Closed 10/21/2015 1 1 Reason for Visit * Reason Comments Follow-up Encounter Details Date Type Department Care Team (Late st Contact Info) Description 10/21/2015 10:30 EDT Office Visit [facility] Interventional Radiology - [address] [phone] Guicho Rosales MD [address] [place] [phone] Alcoholic cirrhosis of liver without ascites [...] hepatic encephalopathy. 6 monthsago, he moved to [place], but he wants to return to [place] annually to monitor his TIPS. Patient Active [...] Visit [facility] General Surgery - [facility] [address] [place], [place] [address] Bon Gutierrez MD 111 [facility], Level [address] [place] [phone] 09/10/2024 10:00 EDT Appointment Shaina Rubio Ultrasound [address] [place], [place] [phone] documented as of this encounter Procedures Procedure [...] and Symptoms/Comments: ??K70.30-Alcoholic cirrhosis of liver without [id number]; TIPS placed February 2014. Technique: Grayscale, color [...] and agree with the findings. Procedure Note lT Rubio MD - 11/09/2016 RAD US DOPPLER VISCERAL LIMITED Signs and Symptoms/Comments: K70.30-Alcoholic cirrhosis of liver without [id number]; TIPS placed February 2014. Technique: Grayscale, color [...] mouth. added in this encounter Care Teams Transmission Calibration Engineer Relationship Specialty Start Date End Date Sari Salgado MD PCP - General 10/21/15 11/07/16 documented as of this encounter
--- OUTSIDE RECORDS SUMMARY | 2024-01-17 15:38 | XMS_ITS | Encounter Summary ---
Author Organization [facility] Address [address] [place] [address] Care Team Providers Care Cnc Mill Programmer Name Role Phone Kamala Rosado MD Primary Care Provider [phone] Encounter Details Date Type Department Care Team (Late st Contact Info) Description 09/04/2014 Phlebotomy Only [facility] [address] [place] [address] Research Assistant Member, Outpatient Chronic hepatitis C without mention of [...] [facility] General Surgery - [facility] [address] [place], [place] [address] Bon Gutierrez MD 111 [facility], [address] [place] [address] 09/10/2024 10:00 EDT Appointment Shaina Bergeron Ultrasound [address] [place] [address] documented as of [...] 9.5 - 12.3 secs 09/04/2014 9:32 EDT [facility] I.N.R. 1.2(H) 0.9 - 1.1 Ratio 09/04/2014 9:32 T [facility] Comment: Moderate Intensity Coumadin INR = 2.0-3.0 Adjustments in anticoagulant therapy dose should be based upon the INR and NOT the Pro Time. Blood specimen (specimen) BLOOD SPECIMEN / Unknown 09/04/2014 8:56 EDT 09/04/2014 9:07 EDT Brody Duran MD PhD HEMATOLOGY & PF 4 ORDERABLES [facility] [address] [place] [address] * (ABNORMAL) COMPREHENSIVE METABOLIC PANEL (CMP) (09/04/2014 8:56 EDT) Potassium 4.2 3.5 - 5.0 mEq/L 09/04/2014 11:34 [facility] Sodium 136 136 - 145 mEq/L 09/04/2014 11:34 [facility] Chloride 106 96 - 110 mEq/L 09/04/2014 11:34 [facility] CO2 24 24 - 32 mEq/L 09/04/2014 11:34 [facility] Total Alkaline Phosphatase 95 38 - 126 U/L 09/04/2014 11:34 [facility] Bilirubin, Total 1.6(H) <1.4 mg/dl 09/05/19 15 11:34 [facility] AST 32 15 - 46 U/L 09/04/2014 11:34 [facility] ALT 33 21 - 72 U/L 09/04/2014 11:34 [facility] Albumin 3.2(L) 3.4 - 4.9 g/dl 09/04/2014 11:34 [facility] Total Protein 6.6 6.5 - 8.3 g/dl 09/04/2014 11:34 [facility] Creatinine 0.80 0.66 - 1.25 mg/dl 09/04/2014 11:34 [facility] GFR, Calculated >60 >60 ml/min/1.7 3m2 09/04/2014 11:34 [facility] BUN 15 10 - 26 mg/dl 09/04/2014 11:34 [facility] Calcium 8.7 8.5 - 10.5 mg/dl 09/04/2014 11:34 [facility] Calculated Calcium 9.9 8.5 - 10.5 mg/dl 09/04/2014 11:34 [facility] Glucose, Serum 264(H) 70 - 100 mg/dl 09/04/2014 11:34 [facility] Fasting? No 09/04/2014 8:57 [facility] Blood specimen (specimen) BLOOD SPECIMEN / Unknown 09/04/2014 8:56 EDT 09/04/2014 9:07 EDT Brody Duran MD PhD CHEMISTRY & BLO OD GAS ORDERABLES Performing Organization Address City/State/[facility] Co de Phone Number [facility] [address] [place] [address] * (ABNORMAL) HEMAGRAM (09/04/2014 8:56 EDT) WBC 3.61(L) 4.0 - 10.4 K/cmm 09/04/2014 9:25 [facility] RBC 4.16(L) 4.36 - 5.78 M/cmm 09/04/2014 9:25 [facility] Hemoglobin 13.9 13.8 - 17.3 gm/dl 09/04/2014 9:25 [facility] HCT 38.8(L) 39.5 - 50.2 % 09/04/2014 9:25 [facility] MCV 93 81 - 95 fl 09/04/2014 9:25 [facility] MCH 33.4(H) 27.6 - 33.0 pg 09/04/2014 9:25 [facility] MCHC 35.8 32.8 - 36.4 gm/dl 09/04/2014 9:25 [facility] RDW-CV 14.1 11.8 - 14.1 % 09/04/2014 9:25 [facility] RDW-SD 45.9 36.5 - 45.9 fl 09/04/2014 9:25 [facility] PLT 104(L) 141 - 320 K/cmm 09/04/2014 9:25 [facility] MPV 6.7(L) 7.5 - 11.2 fl 09/04/2014 9:25 [facility] Blood specimen (specimen) BLOOD SPECIMEN / Unknown 09/04/2014 8:56 EDT 09/04/2014 9:07 EDT Brody Duran MD PhD HEMATOLOGY & PF 4 ORDERABLES [facility] [address] [place] [address] documented in this encounter Visit Diagnoses Diagnosis Chronic hepatitis C without mention of hepatic coma- Primary documented in this encounter Care Teams Cnc Mill Programmer Relationship Specialty Start Date End Date Kamala Rosado MD [address] [address] PCP - General 10/05/13 10/19/15 documented as of this encounter
--- OUTSIDE RECORDS SUMMARY | 2024-01-17 15:38 | XMS_ITS | Encounter Summary ---
Author Organization [facility] Address [address] [place] [address] Care Team Providers Care Director Market Intelligence Name Role Phone Kamala Rosado MD Primary Care Provider [phone] Reason for Visit * Reason Onset Date Comments Appointment Related 02/13/2015 Encounter Details Date Type Department Care Team (Late st Contact Info) Description 02/13/2015 Telephone [facility] Interventional Radiology - [address] [address] Mayank [place] Appointment Related Social History Tobacco [...] [facility] General Surgery - [address] [phone] Bon Gutierrez MD 111 [facility], [address] [place] [phone] 09/10/2024 10:00 EDT Appointment Shaina Rubio [place] [address] [place], [place] [address] documented as of this encounter Visit Diagnoses Not on filedocumented in this encounter Care Teams Director Market Intelligence Relationship Specialty Start Date End Date Kamala Rosado MD [address] [address] PCP - General 10/05/13 10/19/15 documented as of this encounter
--- OUTSIDE RECORDS SUMMARY | 2024-01-17 15:38 | XMS_ITS | Encounter Summary ---
Author Organization [facility] Address [address] [place] [address] Care Team Providers Care Press Hand Supervisor Name Role Phone Elissa Alejo PA-C Primary Care Provider [phone] Encounter Details Date Type Department Care Team (Late st Contact Info) Description 11/09/2016 12:21 EDT - 11/09/2016 23:59 EDT Hospital Encounter [address] [address] Guicho Rosales MD [address] [place] [address] [address] [place] [phone] Discharge Disposition: Auto Discharge Social History Tobacco [...] Description 01/23/2024 10:00 EDT Office Visit [facility] General Surgery - [address] [address] Bon Gutierrez MD 111 [facility], [address] [place] [phone] 09/10/2024 10:00 EDT Appointment Shaina Bergeron [place] [phone] [place], [place] [address] documented as of this encounter Visit Diagnoses Not on filedocumented in this encounter Care Teams Press Hand Supervisor Relationship Specialty Start Date End Date Elissa Alejo PA-C [address] [place], [place] [address] [address] MD [place] [phone] PCP - General 11/09/16 05/07/18 documented as of this encounter
--- OUTSIDE RECORDS SUMMARY | 2024-01-17 15:38 | XMS_ITS | Encounter Summary ---
Author Organization [facility] Address [address] [place] [address] Care Team Providers Care Refining Machine Operator Name Role Phone Kamala Rosado MD Primary Care Provider [phone] Encounter Details Date Type Department Care Team (Late st Contact Info) Description 11/21/2014 Phlebotomy Only [facility] [address] [place] [address] Roll Panner, Outpatient Chronic hepatitis C without mention of [...] 01/23/2024 10:00 EDT Office Visit [facility] General Surgery - [facility] [address] [place], [place] [address] Bon Gutierrez MD 111 [facility], Level 5 [place] [address] 09/10/2024 10:00 EDT Appointment Shaina Bergeron Ultrasound [address] [place] [address] documented as of this encounter Procedures Procedure Name Priority Date/Time Associated Diagnosis Comments HCV RNA DETECT QUANT Routine 11/21/2014 7:25 EDT Chronic hepatitis C without mention of hepatic coma documented in this encounter Results * HCV RNA DETECT QUANT (11/21/2014 7:25 EDT) HCV RNA Detect Quant Undetected IU/mL 11/22/2014 8:08 EDT [facility] Comment: Reference Range: ??Undetected The quantification range of this assay is 15 IU/mL to 100,000,000 IU/mL. Testing was performed by the Mili Ampliprep/Mili TaqMan HCV v2.0 ([employer] Blood specimen (specimen) BLOOD SPECIMEN / Unknown 11/21/2014 7:25 EDT 11/21/2014 8:43 EDT Brody Duran MD PhD CHEMISTRY & BLO OD GAS ORDERABLES [facility] [address] [place] [address] documented in this encounter Visit Diagnoses Diagnosis Chronic hepatitis C without mention of hepatic coma- Primary documented in this encounter Care Teams Refining Machine Operator Relationship Specialty Start Date End Date Kamala Rosado MD [address] [address] PCP - General 10/05/13 10/19/15 documented as of this encounter
--- OUTSIDE RECORDS SUMMARY | 2024-01-17 15:38 | XMS_ITS | Encounter Summary ---
Author Organization [facility] Address [address] [place] [address] Care Team Providers Care Binder Chainstitch Name Role Phone Kamala Rosado MD Primary Care Provider [phone] Encounter Details Date Type Department Care Team (Late st Contact Info) Description 10/30/2014 Phlebotomy Only [facility] [address] [place] [address] Garbage Truck Dispatcher, Outpatient Chronic hepatitis C without mention of [...] Visit [facility] General Surgery - [facility] [address] [place], [place] [address] Bon Gutierrez MD 111 [facility], Level 5 [place] [address] 09/10/2024 10:00 EDT Appointment Shaina Bergeron Ultrasound [address] [place] [address] documented as of this encounter [...] Detect Quant Undetected IU/mL 10/31/2014 14:54 EDT [facility] Comment: Reference Range: ??Undetected The quantification range of this assay is 15 IU/mL to 100,000,000 IU/mL. Testing was performed by the Mili Ampliprep/Mili TaqMan HCV v2.0 ([employer] Blood specimen (specimen) BLOOD SPECIMEN / Unknown 10/30/2014 8:20 EDT 10/30/2014 8:41 EDT Brody Duran MD PhD CHEMISTRY & BLO OD GAS ORDERABLES Performing Organization Address [facility] Co de Phone Number [facility] [address] [place] [address] * (ABNORMAL) PROTIME (10/30/2014 8:20 EDT) Pro Time 13.3(H) 10.1 - 13.0 secs 10/30/2014 8:57 EDT [facility] I.N.R. 1.2(H) 0.9 - 1.1 Ratio 10/30/2014 8:57 EDT [facility] Comment: Moderate Intensity Coumadin INR = 2.0-3.0 Adjustments in anticoagulant therapy dose should be based upon the INR and NOT the Pro Time. Blood specimen (specimen) BLOOD SPECIMEN / Unknown 10/30/2014 8:20 EDT 10/30/2014 8:41 EDT Brody Duran MD PhD HEMATOLOGY & PF 4 ORDERABLES Performing Organization Address [facility] Co de Phone Number [facility] [address] [place] [address] * (ABNORMAL) COMPREHENSIVE METABOLIC PANEL (CMP) (10/30/2014 8:20 EDT) [facility] Potassium 4.2 3.5 - 5.0 mEq/L 10/30/2014 9:12 [facility] Sodium 142 136 - 145 mEq/L 10/30/2014 9:12 [facility] Chloride 106 96 - 110 mEq/L 10/30/2014 9:12 [facility] CO2 26 24 - 32 mEq/L 10/30/2014 9:12 [facility] Total Alkaline Phosphatase 99 38 - 126 U/L 10/30/2014 9:12 [facility] Bilirubin, Total 1.9(H) <1.4 mg/dl 10/31/19 15 9:12 [facility] AST 27 15 - 46 U/L 10/30/2014 9:12 [facility] ALT 31 21 - 72 U/L 10/30/2014 9:12 [facility] Albumin 3.6 3.4 - 4.9 g/dl 10/30/2014 9:12 [facility] Total Protein 6.8 6.5 - 8.3 g/dl 10/30/2014 9:12 [facility] Creatinine 0.78 0.66 - 1.25 mg/dl 10/30/2014 9:12 [facility] GFR, Calculated 97 >60 ml/min/1.7 3m2 10/30/2014 9:12 [facility] Comment: eGFR calculated using CKD-EPI equation for non Americans. Multiply eGFR by 1.16 for Americans. BUN 14 10 - 26 mg/dl 10/30/2014 9:12 [facility] Calcium 8.9 8.5 - 10.5 mg/dl 10/30/2014 9:12 [facility] Calculated Calcium 9.7 8.5 - 10.5 mg/dl 10/30/2014 9:12 [facility] Glucose, Serum 138(H) 70 - 100 mg/dl 10/30/2014 9:12 [facility] Fasting? No 10/30/2014 8:20 [facility] Blood specimen (specimen) BLOOD SPECIMEN / Unknown 10/30/2014 8:20 EDT 10/30/2014 8:41 EDT Brody Duran MD PhD CHEMISTRY & BLO OD GAS ORDERABLES [facility] [address] [place] [address] * (ABNORMAL) HEMAGRAM (10/30/2014 8:20 EDT) WBC 3.56(L) 4.0 - 10.4 K/cmm 10/30/2014 8:52 [facility] RBC 4.27(L) 4.36 - 5.78 M/cmm 10/30/2014 8:52 [facility] Hemoglobin 14.1 13.8 - 17.3 gm/dl 10/30/2014 8:52 EDT [facility] HCT 40.3 39.5 - 50.2 % 10/30/2014 8:52 EDT [facility] MCV 94 81 - 95 fl 10/30/2014 8:52 EDT [facility] MCH 33.0 27.6 - 33.0 pg 10/30/2014 8:52 EDT [facility] MCHC 35.0 32.8 - 36.4 gm/dl 10/30/2014 8:52 EDT [facility] RDW-CV 14.1 11.8 - 14.1 % 10/30/2014 8:52 EDT [facility] RDW-SD 46.4(H) 36.5 - 45.9 fl 10/30/2014 8:52 EDT [facility] PLT 99(L) 141 - 320 K/cmm 10/30/2014 8:52 T [facility] MPV 6.5(L) 7.5 - 11.2 fl 10/30/2014 8:52 T [facility] Blood specimen (specimen) BLOOD SPECIMEN / Unknown 10/30/2014 8:20 EDT 10/30/2014 8:41 EDT Brody Duran MD PhD HEMATOLOGY & PF 4 ORDERABLES [facility] [address] [place] [address] documented in this encounter Visit Diagnoses Diagnosis Chronic hepatitis C without mention of hepatic coma- Primary documented in this encounter Care Teams Binder Chainstitch Relationship Specialty Start Date End Date Kamala Rosado MD [address] [address] PCP - General 10/05/13 10/19/15 documented as of this encounter
--- OUTSIDE RECORDS SUMMARY | 2024-01-17 15:38 | XMS_ITS | Encounter Summary ---
Author Organization [facility] Address [address] [place] [address] Care Team Providers Care Research Program Assistant Name Role Phone Kamala Rosado MD Primary Care Provider [phone] Encounter Details Date Type Department Care Team (Late st Contact Info) Description 09/04/2014 8:50 EDT - 09/04/2014 23:59 EDT Hospital Encounter [address] [address] Unknown, Provider, Brody Duran MD PhD [address] [place] [address], [address] [place] [address] Discharge Disposition: Auto Discharge Social [...] Refills Start Date End Date GLUC/PRANAV-MSM#2/C/D3/MAHESH /BORN ([id number] WITH VIT D ORAL) Take 1 Tab [...] 01/23/2024 10:00 EDT Office Visit [facility] General Surgery - [facility] [address] [place], [place] [phone] Bon Gutierrez MD 111 [facility], [address] [place] [address] 09/10/2024 10:00 EDT Appointment Shaina Mejia [address] [place] [address] documented as of this encounter Visit Diagnoses Not on filedocumented in this encounter Care Teams Research Program Assistant Relationship Specialty Start Date End Date Kamala Rosado MD [address] [address] PCP - General 10/05/13 10/19/15 documented as of this encounter
--- OUTSIDE RECORDS SUMMARY | 2024-01-17 15:38 | XMS_ITS | Encounter Summary ---
Author Organization [facility] Address [address] [place] [address] Care Team Providers Care Chief Credit Officer Name Role Phone Kamala Rosado MD Primary Care Provider [phone] Encounter Details Date Type Department Care Team (Latest Contact Info) Description 02/17/2015 7:02 EST - 02/17/2015 23:59 EST Hospital Encounter [facility] - [address] [address] Unknown, Provider, Discharge Disposition: Home or Self [...] Code Departure Means Destination Home or Self Half-Way documented in this encounter Plan of Treatment Upcoming Encounters Date Type Department Care Team (Late st Contact Info) Description 01/23/2024 10:00 EDT Office Visit [facility] General Surgery - [address] [address] Bon Gutierrez MD 111 [facility], [address] [place] [address] 09/10/2024 10:00 EDT Appointment Shaina Mejia [address] [place] [address] documented as of this encounter Visit Diagnoses Not on filedocumented in this encounter Care Teams Chief Credit Officer Relationship Specialty Start Date End Date Kamala Rosado MD [address] [address] PCP - General 10/05/13 10/19/15 documented as of this encounter
--- OUTSIDE RECORDS SUMMARY | 2024-01-17 15:38 | XMS_ITS | Encounter Summary ---
Author Organization [facility] Address [address] [place] [address] Care Team Providers Care Pawn Broker Name Role Phone Kamala Rosado MD Primary Care Provider [phone] Encounter Details Date Type Department Care Team (Latest Contact Info) Description 06/06/2014 Documentation Visit [facility] Gastroenterology - Main [place] [address] [place] [address] [address] [facility] Social History Tobacco Use Types Packs/Day Years [...] for labs to be done at the [facility]. Patient denied use of any other [...] Description 01/23/2024 10:00 EDT Office Visit [facility] General Surgery - [address] [address] Bon Gutierrez MD [address] [place] [address], [address] [place] [address] 09/10/2024 10:00 EDT Appointment Shaina Mejia [address] [place] [address] documented as of this encounter Visit Diagnoses Not on filedocumented in this encounter Care Teams Pawn Broker Relationship Specialty Start Date End Date Kamala Rosado MD [address] [address] PCP - General 10/05/13 10/19/15 documented as of this encounter
--- OUTSIDE RECORDS SUMMARY | 2024-01-17 15:38 | XMS_ITS | Encounter Summary ---
Author Organization [facility] Address [address] [place] [address] Care Team Providers Care Bed And Breakfast Cook Name Role Phone Kamala Rosado MD Primary Care Provider [phone] Unknown, Provider Primary Care Provider [phone] Sari Salgado MD Primary Care Provider [phone] Unknown, Provider Primary Care Provider [phone] Elissa Alejo-C Primary Care Provider Laurie Wiggins MD Primary Care Provider [phone] Katia BlancoP Primary Care Provider [phone] George Lou [facility] Primary Care Provider [phone] Reason for Visit * Reason Onset Date Comments Other 05/22/2014 patient has ques tions regarding hep c new treatment. Just received a denial for med from a mail order company that he thought he no longer had. Encounter Details Date Type Department Care Team (Late st Contact Info) Description 05/22/2014 Telephone [facility] Gastroenterology - [facility] [address] [place] [address] Brody Duran MD PhD 111 [facility], [address] [place] [address] Other (patient has questions regarding [...] Description 01/23/2024 10:00 EDT Office Visit [facility] General Surgery - [address] 4869[address] Bon Gutierrez MD [address] [place] [address], [address] [place] [phone] 09/10/2024 10:00 EDT Appointment Shaina Bergeron [address] [address] documented as of this encounter Visit Diagnoses Not on filedocumented in this encounter Care Teams Bed And Breakfast Cook Relationship Specialty Start Date End Date Kamala Rosado MD [address] 3647[address] PCP - General 10/05/13 10/19/15 Unknown, Provider, PCP - General 10/20/15 10/20/15 Sari Salgado MD PCP - General 10/21/15 11/07/16 Unknown, Provider, PCP - General 11/08/16 11/08/16 Elissa Alejo, EDNAC [address] [facility] [address] [place] [address] PCP - General 11/09/16 05/07/18 Laurie Wiggins MD 193 [facility] [address] [place] [address] PCP - General 05/08/18 03/25/19 Katia Blanco FNP [address] [place] [address] PCP - General 03/26/19 09/20/22 George Lou RPA [address] [facility] [address] [place], [place] [address] PCP - General Family Medicine - Primary Care 09/21/22 documented as of this encounter
--- OUTSIDE RECORDS SUMMARY | 2024-01-17 15:38 | XMS_ITS | Encounter Summary ---
Author Organization [facility] Address [address] [place] [address] Care Team Providers Care Accounting Support Specialist Name Role Phone Kamala Rosado MD Primary Care Provider [phone] Reason for Visit * Reason Onset Date Comments Other 06/13/2015 Encounter Details Date Type Department Care Team (Late st Contact Info) Description 06/13/2015 Telephone [facility] [place] [address] Estela Dean Other Social History Tobacco Use [...] called to give us new address in [place]. He wants to keep his care here with Dr. Rosales. Heis scheduled for 09/01 but may change too October instead. documented in this encounter Plan of Treatment Upcoming Encounters Date Type Department Care Team (Late st Contact Info) Description 01/23/2024 10:00 EDT Office Visit [facility] General Surgery - [address] [address] Bon Gutierrez MD 111 [facility], Level [address] [place] [address] 09/10/2024 10:00 EDT Appointment Shaina Bergeron [address] [place], [place] [address] documented as of this encounter Visit Diagnoses Not on filedocumented in this encounter Care Teams Accounting Support Specialist Relationship Specialty Start Date End Date Kamala Rosado MD [address] [address] PCP - General 10/05/13 10/19/15 documented as of this encounter
--- OUTSIDE RECORDS SUMMARY | 2024-01-17 15:38 | XMS_ITS | Encounter Summary ---
Author Organization [facility] Address [address] [place] [address] Care Team Providers Care Pediatric Surgeon Name Role Phone Kamala Rosado MD Primary Care Provider [phone] Reason for Visit * Reason Comments Follow-up Encounter Details Date Type Department Care Team (Late st Contact Info) Description 11/12/2014 9:00 EDT Office Visit [facility] Interventional Radiology - [address] [phone] Guicho Rosales MD [address] [place] [address], Level 1 [place] [address] Other cirrhosis of liver (CMS-HCC) [...] Info) Description 01/23/2024 10:00 EDT Office Visit [facility] General Surgery - Main [place] [address] [place] [address] Bon Gutierrez MD 111 [facility], Level [address] [place] [address] 09/10/2024 10:00 EDT Appointment Shaina Bergeron Ultrasound [address] [place], [place] [address] documented as of this encounter Procedures Procedure [...] SYMPTOMS/COMMENTS: ??571.5-Cirrhosis of liver without mention of fqssars-ZIW-5-CM; TIPS 01/2014. Comparison: None Technique: Grayscale and [...] SYMPTOMS/COMMENTS: 571.5-Cirrhosis of liver without mention of fywucfj-ZMV-6-CM; TIPS 01/2014. Comparison: None Technique: Grayscale and [...] Start Date End Da te GLUC/PRANAV-MSM#2/C/D3/ MAHESH/BORN (REWTPCMI-FVAOHV-RTB WITH VIT D ORAL) Take 1 Tab by mouth 2 times daily. Discontinued by another clinician 11/12/2014 UNABLE TO FIND Blood pressure medication unknown Discontinued by another clinician 11/12/2014 PV W-O ROCK/FERROUS FUMARATE/FA (M-VIT ORAL) Take 1 Tab by mouth daily. Discontinued by another clinician 11/12/2014 documented as of this encounter Care Teams Pediatric Surgeon Relationship Specialty Start Date End Date Kamala Rosado MD [address] [address] PCP - General 10/05/13 10/19/15 documented as of this encounter
--- OUTSIDE RECORDS SUMMARY | 2024-01-17 15:38 | XMS_ITS | Encounter Summary ---
Author Organization [facility] Address [address] [place] [address] Care Team Providers Care Methods Analyst Name Role Phone Kamala Rosado MD Primary Care Provider [phone] Reason for Visit * Reason Comments Follow-up follow up for Yumiko haji, pt states that he's doing well but tired Encounter Details Date Type Department Care Team (Late st Contact Info) Description 09/05/2014 14:00 EDT Office Visit [facility] Gastroenterology - [address] [phone] Brody Duran MD PhD [address] [place] [address] 5 [place] [address] Chronic hepatitis C without mention [...] FOLLOWUP NOTE - 09/05/2014 Kamala Rosado MD [address], [address] [place] [address] Rosado: This is to let you know that I have seen your patient, Alonzo Urbina in the office today. 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 He [...] to be an IPMN).Surveillance abdominal MRI at [facility] in July 2014 did not [...] PM - Brody Duran MD,PhD Dictation ID: [id number] cc: Guicho Rosales MD, [facility] - Radiology [address] [place] [address] Kamala Rosado MD, [address], [address], [place] [address] * Brody Duran MD - 09/05/2014 4466 EDT This office note has been dictated. documented in this encounter Plan of Treatment Upcoming Encounters Date Type Department Care Team (Late st Contact Info) Description 01/23/2024 10:00 EDT Office Visit [facility] General Surgery - [facility] [address] [place], [place] [address] Bon Gutierrez MD 111 [facility], Level [address] [place] [phone] 09/10/2024 10:00 EDT Appointment Shaina Bergeron [address] [place], [place] [address] documented as of this encounter Visit Diagnoses [...] 11/12/2014 added in this encounter Care Teams Methods Analyst Relationship Specialty Start Date End Date Kamala Rosado MD [address] [address] PCP - General 10/05/13 10/19/15 documented as of this encounter
--- OUTSIDE RECORDS SUMMARY | 2024-01-17 15:38 | XMS_ITS | Encounter Summary ---
Author Organization [facility] Address [address] [place] [address] Care Team Providers Care Ios Developer Name Role Phone Kamala Rosado MD Primary Care Provider [phone] Encounter Details Date Type Department Care Team (Late st Contact Info) Description 11/21/2014 7:22 EDT - 11/21/2014 23:59 EDT Hospital Encounter [address] [address] Unknown, Provider, Brody Duran MD PhD [address] [place] [address], [address] [place] [address] Discharge Disposition: Auto Discharge Social [...] Info) Description 01/23/2024 10:00 EDT Office Visit [facility] General Surgery - [address] [address] Bon Gutierrez MD 111 [facility], [address] [place] [address] 09/10/2024 10:00 EDT Appointment Shaina Bergeron [address] [address] documented as of this encounter Visit Diagnoses Not on filedocumented in this encounter Care Teams Ios Developer Relationship Specialty Start Date End Date Kamala Rosado MD [address] [address] PCP - General 10/05/13 10/19/15 documented as of this encounter
--- OUTSIDE RECORDS SUMMARY | 2024-01-17 15:38 | XMS_ITS | Encounter Summary ---
Author Organization [facility] Address [address] [place] [address] Care Team Providers Care Gauge Checker Name Role Phone Elissa Alejo PA-C Primary Care Provider [phone] Reason for Visit * Reason Comments Follow-up Tips 01/28/2014 Encounter Details Date Type Department Care Team (Late st Contact Info) Description 11/09/2016 15:00 EDT Office Visit [facility] Interventional Radiology - [address] [address] Guicho Rosales MD [address] [place] [address], [place], [address] [place] [address] Other cirrhosis of liver (CMS-HCC) [...] by Dr. Duran. He now lives in [place]. Patient Active Problem List Diagnosis ??? Chronic [...] Visit [facility] General Surgery - [facility] [address] [place], [place] [address] Bon Gutierrez MD 111 [facility], [address] [place] [address] 09/10/2024 10:00 EDT Appointment Shaina Bergeron [address] [place], [place] [address] documented as of this encounter Visit Diagnoses Diagnosis Other cirrhosis of liver (HCC-CMS)- Primary documented in this encounter Historical Medications * This list may reflect changes made after this encounter. Medication Sig Dispensed Refills Start Date End Date buPROPion (WELLBUTRIN XL) 300 mg XL tablet Take 300 mg by mouth daily. 06/24/2018 added in this encounter Care Teams Gauge Checker Relationship Specialty Start Date End Date Elissa Alejo, PA-C [address] [place] [address] MD [place] [address] PCP - General 11/09/16 05/07/18 documented as of this encounter
--- OUTSIDE RECORDS SUMMARY | 2024-01-17 15:38 | XMS_ITS | Encounter Summary ---
Author Organization [facility] Address [address] [place] [address] Care Team Providers Care Ship Rigger Apprentice Name Role Phone Kamala Rosado MD Primary Care Provider [phone] Encounter Details Date Type Department Care Team (Late st Contact Info) Description 02/18/2015 7:16 EST - 02/18/2015 23:59 EST Hospital Encounter [address] [address] Guicho Rosales MD [address] [place] [address] 1 [place] [phone] Discharge Disposition: Auto Discharge Social History Tobacco [...] Visit [facility] General Surgery - [address] [address]34[address] Bon Gutierrez MD 111 [facility], [address] [place] [phone] 09/10/2024 10:00 EDT Appointment Shaina Rubio [address] [place], [place] [address]25[address] documented as of this encounter Visit Diagnoses Not on filedocumented in this encounter Care Teams Ship Rigger Apprentice Relationship Specialty Start Date End Date Kamala Rosado MD [address] [address] PCP - General 10/05/13 10/19/15 documented as of this encounter
--- OUTSIDE RECORDS SUMMARY | 2024-01-17 15:38 | XMS_ITS | Encounter Summary ---
Author Organization [facility] Address [address] [place] [address] Care Team Providers Care Assembly Worker Name Role Phone Kamala Rosado MD Primary Care Provider [phone] Reason for Visit * Reason Onset Date Comments Results 11/25/2014 End of HCV treat ment labs Encounter Details Date Type Department Care Team (Late st Contact Info) Description 11/25/2014 Telephone [facility] Gastroenterology - [facility] [address] [place] [address] Curt Mejia [facility] [address] [place] [address] Results (End of HCV treatment labs) Social [...] Notes * Telephone Encounter - Curt Mejia [facility] - 11/25/2014 0932 EDT Reviewed HCV RNA [...] Office Visit [facility] General Surgery - [address] [address] Bon Gutierrez MD [address] [place] [address], [address] [place] [phone] 09/10/2024 10:00 EDT Appointment Shaina Mejia [address] [place] [id number] documented as of this encounter Results * HCV RNA DETECT QUANT (02/17/2015 7:07 EST) HCV RNA Detect Quant Undetected IU/mL 02/18/2015 13:50 EST [facility] Comment: Reference Range: ??Undetected The quantification range of this assay is 15 IU/mL to 100,000,000 IU/mL. Testing was performed by the Mili Ampliprep/Mili TaqMan HCV v2.0 ([employer] Blood specimen (specimen) BLOOD SPECIMEN / Unknown 02/17/2015 7:07 EST 02/17/2015 7:39 EST Brody Duran MD PhD CHEMISTRY & BLO OD GAS ORDERABLES [facility] [address] [place] [address] documented in this encounter Visit Diagnoses Diagnosis Chronic hepatitis C without mention of hepatic coma- Primary documented in this encounter Care Teams Assembly Worker Relationship Specialty Start Date [place] [address] PCP - General 10/05/13 10/19/15 documented as of this encounter
--- OUTSIDE RECORDS SUMMARY | 2024-01-17 15:38 | XMS_ITS | Encounter Summary ---
Author Organization [facility] Address [address] [place] [address] Care Team Providers Care Automotive Parts Salesperson Name Role Phone Kamala Rosado MD Primary Care Provider [phone] Encounter Details Date Type Department Care Team (Late st Contact Info) Description 08/29/2014 11:19 EDT - 08/29/2014 23:59 EDT Hospital Encounter [address] [address] Unknown, Provider, Brody Duran MD PhD [address] [place] [address], [address] [place] [address] Discharge Disposition: Auto Discharge Social [...] Refills Start Date End Date GLUC/PRANAV-MSM#2/C/D3/MAHESH /BORN ([id number] WITH VIT D ORAL) Take 1 Tab [...] [facility] General Surgery - [facility] [address] [place], [place] [id number] Bon Gutierrez MD 111 [facility], [address] [place] [address] 09/10/2024 10:00 EDT Appointment Shaina Mejia [address] [place] [address] documented as of this encounter Visit Diagnoses Not on filedocumented in this encounter Care Teams Automotive Parts Salesperson Relationship Specialty Start Date End Date Kamala Rosado MD [address] [address] PCP - General 10/05/13 10/19/15 documented as of this encounter
--- OUTSIDE RECORDS SUMMARY | 2024-01-17 15:38 | XMS_ITS | Encounter Summary ---
Author Organization [facility] Address [address] [place] [address] Care Team Providers Care Salesperson Toy Trains And Accessories Name Role Phone Kamala Rosado MD Primary Care Provider [phone] Reason for Visit * Reason Onset Date Comments Medication Management 10/04/2014 Encounter Details Date Type Department Care Team (Late st Contact Info) Description 10/04/2014 Telephone [facility] [place] [address] Ct Martinez [facility] Medication Management Social History Tobacco [...] Encounter - Ct Martinez R[facility] - 10/04/2014 1131 EDT Reviewed wk20 HCV labs results: as [...] Info) Description 01/23/2024 10:00 EDT Office Visit [facility] General Surgery - [facility] [address] [place], [place] [address] Bon Gutierrez MD 111 [facility], [address] [place] [phone] 09/10/2024 10:00 EDT Appointment Shaina Mejia [address] [place] [address] documented as of this encounter Visit Diagnoses Not on filedocumented in this encounter Care Teams Salesperson [employer] Tra[employer] Accessories Relationship Specialty Start Date End Date Kamala Rosado MD [address] [address] PCP - General 10/05/13 10/19/15 documented as of this encounter
--- OUTSIDE RECORDS SUMMARY | 2024-01-17 15:38 | XMS_ITS | Encounter Summary ---
Author Organization [facility] Address [address] [place] [address] Care Team Providers Care Job Service Specialist Name Role Phone Kamala Rosado MD Primary Care Provider [phone] Reason for Visit * Reason Onset Date Comments Results 07/02/2014 on Harvoni and w ould like lab results. Encounter Details Date Type Department Care Team (Late st Contact Info) Description 07/02/2014 Telephone [facility] Gastroenterology - [address] [address] Brody Duran MD PhD 111 [facility], [address] [place] [address] Results (on Harvoni and would [...] weeks- Undetected. He states he is in [facility] with family obligation, cannot make 07/08/14 appointment [...] Visit [facility] General Surgery - [address] 880[address] Bon Gutierrez MD 111 [facility], Level [address] [place] [phone] 09/10/2024 10:00 EDT Appointment Shaina Mejia [address] [place] [address] documented as of this encounter Results * HCV RNA DETECT QUANT (08/29/2014 11:24 EDT) HCV RNA Detect Quant Undetected IU/mL 09/03/2014 14:19 EDT [facility] Comment: Reference Range: ??Undetected The quantification range of this assay is 15 IU/mL to 100,000,000 IU/mL. Testing was performed by the Mili Ampliprep/Mili TaqMan HCV v2.0 ([employer] Blood specimen (specimen) BLOOD SPECIMEN / Unknown 08/29/2014 11:24 EDT 08/29/2014 11:44 EDT Brody Duran MD PhD CHEMISTRY & BLO OD GAS ORDERABLES [facility] [address] [place] [address] documented in this encounter Visit Diagnoses Diagnosis Chronic hepatitis C without mention of hepatic coma- Primary documented in this encounter Care Teams Job Service Specialist Relationship Specialty Start Date End Date Kamala Rosado MD [address] [address] PCP - General 10/05/13 10/19/15 documented as of this encounter
--- OUTSIDE RECORDS SUMMARY | 2024-01-17 15:38 | XMS_ITS | Encounter Summary ---
Author Organization [facility] Address [address] [place] [address] Care Team Providers Care Beer Still Runner Compounder Name Role Phone Kamala Rosado MD Primary Care Provider [phone] Reason for Visit * Reason Onset Date Comments Other 07/17/2014 per ' s letter 03/15 office visit, ? should he have both CT and Abdomen Ultra sound. Encounter Details Date Type Department Care Team (Late st Contact Info) Description 07/17/2014 Telephone [facility] Gastroenterology - [address] [address] Brody Duran MD PhD [address] [place] [address] [address] [place] [address] Other (per 's letter 03/15 [...] Visit [facility] General Surgery - [facility] [address] [place], [place] [address] Bon Gutierrez MD 111 [facility], [address] [place] [phone] 09/10/2024 10:00 EDT Appointment Shaina Berger[address] [place] [address] documented as of this encounter Visit Diagnoses Not on filedocumented in this encounter Care Teams Beer Still Runner Compounder Relationship Specialty Start Date End Date Kamala Rosado MD [facility] [address] [address] PCP - General 10/05/13 10/19/15 documented as of this encounter
--- OUTSIDE RECORDS SUMMARY | 2024-01-17 15:38 | XMS_ITS | Encounter Summary ---
Author Organization [facility] Address [address] [place] [address] Care Team Providers Care Marketing Development Manager Name Role Phone Kamala Rosado MD Primary Care Provider [phone] Reason for Referral * Radiology Services (Routine) - Closed Specialty Diagnoses / Procedures [facility] Referred To Contact Diagnoses Cirrhosis (HCC-CMS) Procedures RAD US LIVER WITH DOPPLER Guicho Rosales MD [address] [place] [phone] Referral ID Status Reason Start Date Expiration Date Visits Re quested Visits Authorized [id number] Closed 07/30/2014 1 1 Reason for Visit * Reason Comments Follow-up 3 month s/p TIPS Encounter Details Date Type Department Care Team (Late st Contact Info) Description 07/30/2014 9:00 EDT Office Visit [facility] Interventional Radiology - [address] [phone] Guicho Rosales MD [address] [place] [address] Cirrhosis (CMS-HCC) (HCC-CMS) (Primary Dx) Social [...] MD Medication Sig Dispense Refill ??? GLUC/PRANAV-MSM#2/C/D3/MAHESH/BORN ([id number] WITH VIT D ORAL) Take 1 Tab [...] Visit [facility] General Surgery - [facility] [address] [place] [address] Bon Gutierrez MD 111 [facility], [address] [place] [address] 09/10/2024 10:00 EDT Appointment Shaina Bergeron Ultrasound [address] [place] [address] documented as of this encounter [...] Symptoms/Comments: ??571.5-Cirrhosis of liver without mention of qbnoodr-ZDC-9-CM; TIPS 10/14. ??Needs surveillance ultrasound of TIPS. [...] Symptoms/Comments: 571.5-Cirrhosis of liver without mention of ddjskep-NJM-5-CM; TIPS 10/14. Needs surveillance ultrasound of TIPS. [...] 02/18/2015 added in this encounter Care Teams Marketing Development Manager Relationship Specialty Start Date End Date Kamala Rosado MD [address] [address] PCP - General 10/05/13 10/19/15 documented as of this encounter
--- OUTSIDE RECORDS SUMMARY | 2024-01-17 15:38 | XMS_ITS | Encounter Summary ---
Author Organization [facility] Address [address] [place] [address] Care Team Providers Care Dye Colorist Formulator Name Role Phone Kamala Rosado MD Primary Care Provider [phone] Encounter Details Date Type Department Care Team (Latest Contact Info) Description 09/03/2014 Orders Only [facility] Gastroenterology - [facility] [address] [place] [address] [address] Martinez [facility] Chronic hepatitis C without mention of hepatic [...] confirmed he would be in tomorrow at [facility] for labs and on 09/05 for follow up appt with Dr. Duran. documented in this encounter Plan of Treatment Upcoming Encounters Date Type Department Care Team (Late st Contact Info) Description 01/23/2024 10:00 EDT Office Visit [facility] General Surgery - [address] 4594[address] Bon Gutierrez MD 111 [facility] [place], [address] [place] [address] 09/10/2024 10:00 EDT Appointment Shaina Bergeron [address] [place] [address] documented as of this encounter Visit Diagnoses Diagnosis Chronic hepatitis C without mention of hepatic coma- Primary documented in this encounter Care Teams Dye Colorist Formulator Relationship Specialty Start Date End Date Kamala Rosado MD [address] [address] PCP - General 10/05/13 10/19/15 documented as of this encounter
--- OUTSIDE RECORDS SUMMARY | 2024-01-17 15:38 | XMS_ITS | Encounter Summary ---
Author Organization Health system Address [address] [place] [address] Care Team Providers Care Landing Man Name Role Phone Kamala Rosado MD Primary Care Provider [phone] Encounter Details Date Type Department Care Team (Late st Contact Info) Description 10/03/2014 8:37 EDT - 10/03/2014 23:59 EDT Hospital Encounter [address] [address] Unknown, Provider, Brody Duran MD PhD [address] [place] [address], [address] [place] [address] Discharge Disposition: Auto Discharge Social [...] Refills Start Date End Date GLUC/PRANAV-MSM#2/C/D3/MA NG/BORN ([id number] WITH VIT D ORAL) Take 1 Tab [...] [facility] General Surgery - [address] 824[address] Bon Gutierrez MD 111 [facility], Level [address] [place] [address] 09/10/2024 10:00 EDT Appointment Shaina Mejia [address] [place] [phone] documented as of this encounter Visit Diagnoses Not on filedocumented in this encounter Care Teams Landing Man Relationship Specialty Start Date End Date Kamala Rosado MD [address] [address] PCP - General 10/05/13 10/19/15 documented as of this encounter
--- OUTSIDE RECORDS SUMMARY | 2024-01-17 15:38 | XMS_ITS | Encounter Summary ---
Author Organization [facility] Address [address] [place] [address] Care Team Providers Care Orthotic/Prosthetic Clinician Name Role Phone Kamala Rosado MD Primary Care Provider [phone] Encounter Details Date Type Department Care Team (Late st Contact Info) Description 08/29/2014 Phlebotomy Only [facility] [address] [place] [address] Harnessmaker Apprentice, Outpatient Chronic hepatitis C without mention of [...] 01/23/2024 10:00 EDT Office Visit [facility] General Surgery - [facility] [address] [place], [place] [phone] Bon Gutierrez MD 111 [facility], [address] [place] [address] 09/10/2024 10:00 EDT Appointment Shaina Bergeron Ultrasound [address] [place] [address] documented as of this encounter Procedures Procedure Name Priority Date/Time Associated Diagnosis Comments HCV RNA DETECT QUANT Routine 08/29/2014 11:24 EDT Chronic hepatitis C without mention of hepatic coma documented in this encounter Results * HCV RNA DETECT QUANT (08/29/2014 11:24 EDT) HCV RNA Detect Quant Undetected IU/mL 09/03/2014 14:19 EDT [facility] Comment: Reference Range: ??Undetected The quantification range of this assay is 15 IU/mL to 100,000,000 IU/mL. Testing was performed by the Mili Ampliprep/Mili TaqMan HCV v2.0 ([employer] Blood specimen (specimen) BLOOD SPECIMEN / Unknown 08/29/2014 11:24 EDT 08/29/2014 11:44 EDT Brody Duran MD PhD CHEMISTRY & BLO OD GAS ORDERABLES [facility] [address] [place] [address] documented in this encounter Visit Diagnoses Diagnosis Chronic hepatitis C without mention of hepatic coma- Primary documented in this encounter Care Teams Orthotic/Prosthetic Clinician Relationship Specialty Start Date End Date Kamala Rosado MD [address] [address] PCP - General 10/05/13 10/19/15 documented as of this encounter
--- OUTSIDE RECORDS SUMMARY | 2024-01-17 15:38 | XMS_ITS | Encounter Summary ---
Author Organization [facility] Address [address] [place] [address] Care Team Providers Care Glass Etcher Name Role Phone Kamala Rosado MD Primary Care Provider [phone] Encounter Details Date Type Department Care Team (Late st Contact Info) Description 05/23/2015 17:06 EST - 05/23/2015 22:00 [facility] Hospital Encounter [address] [address] Marianna Duarte, QUYNH [address] [address] Discharge Disposition: Home or Self [...] 01/23/2024 10:00 EDT Office Visit [facility] General Surgery - [address] [address]68[address] Bon Gutierrez MD 111 [facility], Level 5 [place] [address] 09/10/2024 10:00 EDT Appointment Shaina Bergeron [address] [phone] documented as of this encounter Visit Diagnoses Not on filedocumented in this encounter Care Teams Glass Etcher Relationship Specialty Start Date End Date Kamala Rosado MD [address] [address] PCP - General 10/05/13 10/19/15 documented as of this encounter
--- OUTSIDE RECORDS SUMMARY | 2024-01-17 15:38 | XMS_ITS | Encounter Summary ---
Author Organization [facility] Address [address] [place] [address] Care Team Providers Care Access Nurse Name Role Phone Kamala Rosado MD Primary Care Provider [phone] Reason for Visit * Reason Onset Date Comments Medication Management 11/01/2014 Encounter Details Date Type Department Care Team (Late st Contact Info) Description 11/01/2014 Telephone [facility] [place] [address] [address] Martinez [facility] Medication Management Social History Tobacco Use Types [...] 01/23/2024 10:00 EDT Office Visit [facility] General Surgery - [address] [phone] Bon Gutierrez MD [address] [place] [address], [address] [place] [phone] 09/10/2024 10:00 EDT Appointment Shaina Mejia [address] [place] [address] documented as of this encounter Results * HCV RNA DETECT QUANT (11/21/2014 7:25 EDT) HCV RNA Detect Quant Undetected IU/mL 11/22/2014 8:08 EDT [facility] Comment: Reference Range: ??Undetected The quantification range of this assay is 15 IU/mL to 100,000,000 IU/mL. Testing was performed by the Mili Ampliprep/Mili TaqMan HCV v2.0 ([employer] Blood specimen (specimen) BLOOD SPECIMEN / Unknown 11/21/2014 7:25 EDT 11/21/2014 8:43 EDT Brody Duran MD PhD CHEMISTRY & BLO OD GAS ORDERABLES [facility] [address] [place] [address] documented in this encounter Visit Diagnoses Diagnosis Chronic hepatitis C without mention of hepatic coma- Primary documented in this encounter Care Teams Access Nurse Relationship Specialty Start Date End Date Kamala Rosado MD [address] [address] PCP - General 10/05/13 10/19/15 documented as of this encounter
--- OUTSIDE RECORDS SUMMARY | 2024-01-17 15:38 | XMS_ITS | Encounter Summary ---
Author Organization [facility] Address [address] [place] [address] Care Team Providers Care Video Conference Specialist Name Role Phone Kamala Rosado MD Primary Care Provider [phone] Encounter Details Date Type Department Care Team (Late st Contact Info) Description 10/30/2014 8:10 EDT - 10/30/2014 23:59 EDT Hospital Encounter [address] [address] Unknown, Provider, Brody Duran MD PhD [address] [place] [address], [address] [place] [address] Discharge Disposition: Auto Discharge Social [...] Refills Start Date End Date GLUC/PRANAV-MSM#2/C/D3/MA NG/BORN ([id number] WITH VIT D ORAL) Take 1 Tab [...] Info) Description 01/23/2024 10:00 EDT Office Visit [facility] General Surgery - [address] [address] Bon Gutierrez MD 111 [facility], [address] [place] [phone] 09/10/2024 10:00 EDT Appointment Shaina Mejia [address] [place] [phone] documented as of this encounter Visit Diagnoses Not on filedocumented in this encounter Care Teams Video Conference Specialist Relationship Specialty Start Date End Date Kamala Rosado MD [address] [address] PCP - General 10/05/13 10/19/15 documented as of this encounter
--- OUTSIDE RECORDS SUMMARY | 2024-01-17 15:38 | XMS_ITS | Encounter Summary ---
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 mention of hepatic coma [...] [facility] General Surgery - [facility] [address] [place], [place] [address] Bon Gutierrez MD 111 [facility], [address] [place] [phone] 09/10/2024 10:00 EDT Appointment Shaina Bergeron [address] [address] documented as of this encounter Results * HCV RNA DETECT QUANT (06/28/2014 9:17 EDT) Pathologist [facility] HCV RNA Detect Quant Undetected IU/mL 07/01/2014 14:54 EDT [facility] Comment: Reference Range: ??Undetected The quantification range of this assay is 15 IU/mL to 100,000,000 IU/mL. Testing was performed by the Mili Ampliprep/Mili TaqMan HCV v2.0 ([employer] Blood specimen (specimen) BLOOD SPECIMEN / Unknown 06/28/2014 9:17 EDT 06/28/2014 9:33 EDT Brody Duran MD PhD CHEMISTRY & BLO OD GAS ORDERABLES [facility] [address] [place] [address] documented in this encounter Visit Diagnoses Diagnosis Chronic hepatitis C without mention of hepatic coma- Primary documented in this encounter Care Teams News Technical Director Relationship Specialty Start Date End Date Kamala Rosado MD [address] [address] PCP - General 10/05/13 10/19/15 documented as of this encounter
--- OUTSIDE RECORDS SUMMARY | 2024-01-17 15:38 | XMS_ITS | Encounter Summary ---
Author Organization [facility] Address [address] [place] [address] Care Team Providers Care Elevator Tender Name Role Phone Kaamla Rosado MD Primary Care Provider [phone] Reason for Visit * Reason Comments Follow-up tx completed Encounter Details Date Type Department Care Team (Late st Contact Info) Description 02/18/2015 13:00 EST Office Visit [facility] Gastroenterology - [address] [address] Brody Duran MD PhD [address] [place] [address], [address] [place] [address] Hepatic cirrhosis due to chronic hepatitis C infection ([facility]) (Primary Dx) Social History Tobacco Use [...] Brody Duran MD - 02/18/20152045 EST [facility] GASTROENTEROLOGY AND HEPATOLOGY PROGRESS / FOLLOWUP NOTE - 02/18/2015 Kamala Rosado MD [address], [address] [place] [address] Rosado: This is to let [...] through the interventional radiology team here at [facility]. This should continue every 6 months. My [...] Duran MD,PhD 01 52 PM - Brody Duran MD,PhD cn Dictation ID: [id number] cc: Guicho Rosales MD, [facility] - Radiology [address] [place] [address] Kamala Rosado MD, [address], [address], [place] [address] * Brody Duran MD - 02/18/2015 1353 EST This office note has been dictated. documented in this encounter Plan of Treatment Upcoming Encounters Date Type Department Care Team (Late st Contact Info) Description 01/23/2024 10:00 EDT Office Visit [facility] General Surgery - [facility] [address] [place], [place] [address] Bon Gutierrez MD 111 [facility], [address] [place] [address] 09/10/2024 10:00 EDT Appointment Shaina [address] [place] [address] documented as of this encounter Visit Diagnoses Diagnosis Hepatic cirrhosis due to chronic hepatitis C infection (HCC-[facility])- Primary documented in this encounter Discontinued Medications Medication Sig Discontinue Reason Start Date End Da te omeprazole (PRILOSEC) 20 mg capsule Take 20 mg by mouth daily as needed Patient Stopped Taking 02/18/2015 ibuprofen (MOTRIN) 200 mg tablet Take 400 mg by mouth every 8 hours as needed for Pain Patient Stopped Taking 02/18/2015 documented as of this encounter Care Teams Elevator Tender Relationship Specialty Start Date End Date Kamala Rosado MD [address] [address] PCP - General 10/05/13 10/19/15 documented as of this encounter
--- OUTSIDE RECORDS SUMMARY | 2024-01-17 15:38 | XMS_ITS | Encounter Summary ---
Author Organization [facility] Address [address] [place] [address] Care Team Providers Care Tribal Judge Name Role Phone Kamala Rosado MD Primary Care Provider [phone] Encounter Details Date Type Department Care Team (Late st Contact Info) Description 07/30/2014 7:36 EDT - 07/30/2014 23:59 EDT Hospital Encounter [address] [address] Guicho Rosales MD [address] [place] [address] 1 [place] [phone] Discharge Disposition: Auto Discharge Social History Tobacco [...] Refills Start Date End Date GLUC/PRANAV-MSM#2/C/D3/MAHESH /BORN ([id number] WITH VIT D ORAL) Take 1 Tab [...] [facility] General Surgery - [address] [address]33[address] Bon Gutierrez MD [address] [place] [address], Level 5 [place] [address] 09/10/2024 10:00 EDT Appointment Shaina Mejia [address] [place] [address] documented as of this encounter Visit Diagnoses Not on filedocumented in this encounter Care Teams Tribal Judge Relationship Specialty Start Date End Date Kamala Rosado MD [address] [address] PCP - General 10/05/13 10/19/15 documented as of this encounter
--- OUTSIDE RECORDS SUMMARY | 2024-01-17 15:38 | XMS_ITS | Encounter Summary ---
Author Organization [facility] Address [address] [place] [address] Care Team Providers Care Account Classification Clerk Name Role Phone Kamala Rosado MD Primary Care Provider [phone] Reason for Visit * Reason Comments Advice Only Encounter Details Date Type Department Care Team (Late st Contact Info) Description 02/18/2015 9:00 EST Office Visit [facility] Interventional Radiology - [address] [phone] Guicho Rosales MD [address] [place] [address], Level 1 [place] [address] Other cirrhosis of liver (CMS-HCC) [...] Office Visit [facility] General Surgery - [address] 520171 Bon Gutierrez MD 111 [facility], Level 5 [place] [phone] 09/10/2024 10:00 EDT Appointment Shaina Mejia [address] [place] [address] documented as of this encounter Procedures Procedure [...] 10:11 AM Clinical History/Comments: K74.69-Other cirrhosis of [id number]; TIPS placed February,. ?? Please obtain TIPS [...] 10:11 AM Clinical History/Comments: K74.69-Other cirrhosis of [id number]; TIPS placed February,. Please obtain TIPS flow [...] of ascites or varices Guicho Rosales MD [facility] CLAUDIO documented in this encounter Visit Diagnoses Diagnosis Other cirrhosis of liver (HCC-CMS)- Primary documented in this encounter Discontinued Medications Medication Sig Discontinue Reason Start Date End Da te ledipasvir-sofosbuvir (HARVONI) 90-400 mg tablet Take 1 Tab by mouth daily. Therapy completed 05/15/2014 02/18/2015 documented as of this encounter Care Teams Account Classification Clerk Relationship Specialty Start Date End Date Kamala Rosado MD [address] [address] PCP - General 10/05/13 10/19/15 documented as of this encounter
--- OUTSIDE RECORDS SUMMARY | 2024-01-17 15:38 | XMS_ITS | Encounter Summary ---
Author Organization [facility] Address [address] [place] [address] Care Team Providers Care Operational Risk Consultant Name Role Phone Kamala Rosado MD Primary Care Provider [phone] Reason for Visit * Reason Onset Date Comments Results 02/19/2015 asking for HCV r esults Encounter Details Date Type Department Care Team (Late st Contact Info) Description 02/19/[address] [facility] Gastroenterology - [facility] [address] [place] [address] Curt Mejia [facility] [address] [place] [address] Results (asking for HCV results ) Social [...] Notes * Telephone Encounter - Curt Mejia [facility] - 02/19/2015 1141 EST Reviewed 02/17 labs with patient. HCV Quant remains undetected - indicating SVR12. Reviewed letter from Dr. Duran as well. Pt is in agreement with plan; no further questions. documented in this encounter Plan of Treatment Upcoming Encounters Date Type Department Care Team (Late st Contact Info) Description 01/23/2024 10:[address] [facility] General Surgery - [address] 8245[address] Bon Gutierrez MD [address] [place] [address], Level 5 [place] [phone] 09/10/2024 10:00 EDT Appointment Shaina Mejia [address] [place] [address] documented as of this encounter Visit Diagnoses Not on filedocumented in this encounter Care Teams Operational Risk Consultant Relationship Specialty Start Date End Date Kamala Rosado MD [address] [address] PCP - General 10/05/13 10/19/15 documented as of this encounter
--- OUTSIDE RECORDS SUMMARY | 2024-01-17 15:38 | XMS_ITS | Encounter Summary ---
Author Organization [facility] Address [address] [place] [address] Care Team Providers Care Engineer Gas Pumping Station Name Role Phone Kamala Rosado MD Primary Care Provider [phone] Encounter Details Date Type Department Care Team (Late st Contact Info) Description 02/17/2015 Phlebotomy Only [facility] [address] [place] [address] Podopediatrician, Outpatient Chronic hepatitis C (CMS-HCC) (FORMER[facility]-CMS) (Primary Dx) Social History Tobacco Use Types [...] Visit [facility] General Surgery - [facility] [address] [place], [place] 497[address] Bon Gutierrez MD 111 [facility], Level 5 [place] [phone] 09/10/2024 10:00 EDT Appointment Shaina Bergeron Ultrasound [address] [place] [address] documented as of this encounter Procedures Procedure Name Priority Date/Time Associated Diagnosis Comments HCV RNA DETECT QUANT Routine 02/17/2015 7:07 EST Chronic hepatitis C (CMS-HCC) (HCC-CMS) documented in this encounter Results * HCV RNA DETECT QUANT (02/17/2015 7:07 EST) HCV RNA Detect Quant Undetected IU/mL 02/18/2015 13:50 EST [facility] Comment: Reference Range: ??Undetected The quantification range of this assay is 15 IU/mL to 100,000,000 IU/mL. Testing was performed by the Mili Ampliprep/Mili TaqMan HCV v2.0 ([employer] Blood specimen (specimen) BLOOD SPECIMEN / Unknown 02/17/2015 7:07 EST 02/17/2015 7:39 EST Brody Duran MD PhD CHEMISTRY & BLO OD GAS ORDERABLES [facility] [address] [place] [address] documented in this encounter Visit Diagnoses Diagnosis Chronic hepatitis C (HCC-CMS)- Primary Chronic hepatitis C without mention of hepatic coma documented in this encounter Care Teams Engineer [employer]umping [employer] Relationship Specialty Start Date End Date Kamala Rosado MD [address] [address] PCP - General 10/05/13 10/19/15 documented as of this encounter
--- OUTSIDE RECORDS SUMMARY | 2024-01-17 15:38 | XMS_ITS | Encounter Summary ---
Author Organization [facility] Address [address] [place] [address] Care Team Providers Care Correctional Facility Nurse Name Role Phone Kamala Rosado MD Primary Care Provider Encounter Details Date Type Department Care Team (Latest Contact Info) Description 05/17/2014 11:38 EST - 05/17/2014 23:59 EST Hospital Encounter [address] [address] Unknown, Provider, Discharge Disposition: Home or Self [...] Refills Start Date End Date GLUC/PRANAV-MSM#2/C/D3/MAHESH /BORN ([id number] WITH VIT D ORAL) Take 1 Tab by mouth 2 times daily. 11/12/2014 ledipasvir-sofosbuvir (HARVONI) 90-400 mg tablet Take 1 Tab by mouth daily. 28 Tab 5 05/15/2014 02/18/2015 PV W-O ROCK/FERROUS FUMARATE/FA (M-VIT ORAL) Take 1 Tab by mouth daily. 11/12/2014 documented as of this encounter Discharge Disposition Disposition Code Departure Means Destination Home or Self [facility] documented in this encounter Plan of Treatment Upcoming Encounters Date Type Department Care Team (Late st Contact Info) Description 01/23/2024 10:00 EDT Office Visit [facility] General Surgery - [address] [id number] Bon Gutierrez MD 111 [facility], [facility], Level 5 [place] [phone] 09/10/2024 10:00 EDT Appointment Shaina Bergeron [address] [address] [place], [place] [address] documented as of this encounter Visit Diagnoses Not on filedocumented in this encounter Care Teams Correctional Facility Nurse Relationship Specialty Start Date End Date Kamala Rosado MD [address] [address] PCP - General 10/05/13 10/19/15 documented as of this encounter
--- OUTSIDE RECORDS SUMMARY | 2024-01-17 15:38 | XMS_ITS | Encounter Summary ---
Author Organization [facility] Address [address] [place] [address] Care Team Providers Care Biomedical Instrument Technician Name Role Phone Kamala Rosado MD Primary Care Provider [phone] Encounter Details Date Type Department Care Team (Latest Contact Info) Description 10/04/2014 Orders Only [facility] Gastroenterology - [facility] [address] [place] [address] [address] [facility] Chronic hepatitis [...] Description 01/23/2024 10:00 EDT Office Visit [facility] General Surgery - [facility] [address] [place], [place] 8570[address] Bon Gutierrez MD 111 [facility], Level 5 [place] [phone] 09/10/2024 10:00 EDT Appointment Shaina Rubio [address] 4040[address] documented as of this encounter Results * HCV RNA DETECT QUANT (10/30/2014 8:20 EDT) [facility] HCV RNA Detect Quant Undetected IU/mL 10/31/2014 14:54 EDT [facility] Comment: Reference Range: ??Undetected The quantification range of this assay is 15 IU/mL to 100,000,000 IU/mL. Testing was performed by the Mili Ampliprep/Mili TaqMan HCV v2.0 ([employer] Blood specimen (specimen) BLOOD SPECIMEN / Unknown 10/30/2014 8:20 EDT 10/30/2014 8:41 EDT Brody Duran MD PhD CHEMISTRY & BLO OD GAS ORDERABLES [facility] [address] [place] [address] documented in this encounter Visit Diagnoses Diagnosis Chronic hepatitis C without mention of hepatic coma- Primary documented in this encounter Care Teams Biomedical Instrument Technician Relationship Specialty Start Date End Date Kamala Rosado MD [address] [address] PCP - General 10/05/13 10/19/15 documented as of this encounter
--- OUTSIDE RECORDS SUMMARY | 2024-01-17 15:38 | XMS_ITS | Encounter Summary ---
Author Organization [facility] Address [address] [place] [address] Care Team Providers Care Survey Supervisor Name Role Phone Kamala Rosado MD Primary Care Provider [phone] Encounter Details Date Type Department Care Team (Late st Contact Info) Description 06/28/2014 Phlebotomy Only [facility] [address] [place] [address] Paper Counter, Outpatient Chronic hepatitis C without mention of [...] Office Visit [facility] General Surgery - [facility] [address] [place], [place] 1545[address] Bon Gutierrez MD 111 [facility], Level 5 [place] [address] 09/10/2024 10:00 EDT Appointment Shaina Bergeron Ultrasound [address] [place] [address] documented as of this encounter Procedures Procedure Name Priority Date/Time Associated Diagnosis Comments HCV RNA DETECT QUANT Routine 06/28/2014 9:17 EDT Chronic hepatitis C without mention of hepatic coma documented in this encounter Results * HCV RNA DETECT QUANT (06/28/2014 9:17 EDT) HCV RNA Detect Quant Undetected IU/mL 07/01/2014 14:54 EDT [facility] Comment: Reference Range: ??Undetected The quantification range of this assay is 15 IU/mL to 100,000,000 IU/mL. Testing was performed by the Mili Ampliprep/Mili TaqMan HCV v2.0 ([employer] Blood specimen (specimen) BLOOD SPECIMEN / Unknown 06/28/2014 9:17 EDT 06/28/2014 9:33 EDT Brody Duran MD PhD CHEMISTRY & BLO OD GAS ORDERABLES [facility] [address] [place] [address] documented in this encounter Visit Diagnoses Diagnosis Chronic hepatitis C without mention of hepatic coma- Primary documented in this encounter Care Teams Survey Supervisor Relationship Specialty Start Date End Date Kamala Rosado MD [address] [address] PCP - General 10/05/13 10/19/15 documented as of this encounter
--- OUTSIDE RECORDS SUMMARY | 2024-01-17 15:38 | XMS_ITS | Encounter Summary ---
Author Organization [facility] Address [address] [place] [address] Care Team Providers Care Strategy Director Name Role Phone Kamala Rosado MD Primary Care Provider [phone] Encounter Details Date Type Department Care Team (Latest Contact Info) Description 06/28/2014 9:12 EDT - 06/28/2014 23:59 EDT Hospital Encounter [facility] [address] [place] [address] Unknown, Provider, Discharge Disposition: Home or Self [...] Refills Start Date End Date GLUC/PRANAV-MSM#2/C/D3/MAHESH /BORN ([id number] WITH VIT D ORAL) Take 1 Tab by mouth 2 times daily. 11/12/2014 ledipasvir-sofosbuvir (HARVONI) 90-400 mg tablet Take 1 Tab by mouth daily. 28 Tab 5 05/15/2014 02/18/2015 PV W-O ROCK/FERROUS FUMARATE/FA (M-VIT ORAL) Take 1 Tab by mouth daily. 11/12/2014 documented as of this encounter Discharge Disposition Disposition Code Departure Means Destination Home or Self [facility] documented in this encounter Plan of Treatment Upcoming Encounters Date Type Department Care Team (Late st Contact Info) Description 01/23/2024 10:00 EDT Office Visit [facility] General Surgery - [facility] [address] [place], [place] 4908[address] Bon Gutierrez MD 111 [facility], Level 5 [place] [phone] 09/10/2024 10:00 EDT Appointment Shaina Bergeron [address] [place], [place] [address] documented as of this encounter Visit Diagnoses Not on filedocumented in this encounter Care Teams Strategy Director Relationship Specialty Start Date End Date Kamala Rosado MD [address] [address] PCP - General 10/05/13 10/19/15 documented as of this encounter
--- OUTSIDE RECORDS SUMMARY | 2024-01-17 15:38 | XMS_ITS | Encounter Summary ---
Author Organization [facility] Address [address] [place] [address] Care Team Providers Care Hand Bulldozer Name Role Phone Mario Marquez MD Primary Care Provider [phone] Encounter Details Date Type Department Care Team (Late st Contact Info) Description 05/23/2015 Results Only [facility]- [facility] [phone] Marianna Duarte, QUYNH [address] [address] Social History Tobacco Use Types [...] EDT Office Visit [facility] General Surgery - [address] 1305[address] Bon Gutierrez MD [address] [place] [address], Level 5 [place] [address] 09/10/2024 10:00 EDT Appointment Shaina Bergeron [address] [address] documented as of this encounter [...] ? ALMA CARBALLO ? Accession #: ? [id number] ? : ? 1955 (Age: 59) ??M [...] Connell 05/23/2015 4:13 PM End of Report [facility] 05/23/2015 15:0 1 EST 05/23/2015 15:01 EST Marianna BEAUCHAMP PATHOLOGY ORDERABL ES [facility] [address] [place] [address] documented in this encounter Visit Diagnoses Not on filedocumented in this encounter Care Teams Hand Bulldozer Relationship Specialty Start Date End Date Mario Marquez MD [address] [address] PCP - General 10/05/13 10/19/15 documented as of this encounter
--- OUTSIDE RECORDS SUMMARY | 2024-01-17 15:38 | XMS_ITS | Encounter Summary ---
Author Organization [facility] Address [address] [place] [address] Care Team Providers Care Biological Technical Officer Name Role Phone Sari Salgado MD Primary Care Provider [phone] Encounter Details Date Type Department Care Team (Late st Contact Info) Description 10/21/2015 8:32 EDT - 10/21/2015 23:59 [place] [address] Guicho Rosales MD [address] [place] [address] Level 1 [place] [phone] Discharge Disposition: Auto Discharge Social History Tobacco [...] [facility] General Surgery - [address] 5436[address] Bon Gutierrez MD [address] [place] [address], Level 5 [place] [address] 09/10/2024 10:00 EDT Appointment Shaina Mejia [address] [place] [phone] documented as of this encounter Visit Diagnoses Not on filedocumented in this encounter Care Teams Biological Technical Officer Relationship Specialty Start Date End Date Sari Salgado MD PCP - General 10/21/15 11/07/16 documented as of this encounter
--- OUTSIDE RECORDS SUMMARY | 2024-01-17 15:38 | XMS_ITS | Encounter Summary ---
Author Organization [facility] Address [address] [place] [address] Care Team Providers Care Mitochondrial Disorders Counselor Name Role Phone Kamala Rosado MD Primary Care Provider [phone] Encounter Details Date Type Department Care Team (Late st Contact Info) Description 10/03/2014 Phlebotomy Only [facility] [address] [place] [address] Senior Functional Analyst, Outpatient Chronic hepatitis C without mention of [...] [facility] General Surgery - [facility] [address] [place], [place] [address] Bon Gutierrez MD 111 [facility], Level 5 [place] [address] 09/10/2024 10:00 EDT Appointment Shaina Bergeron Ultrasound 0 [place] [address] documented as of this encounter [...] 10.1 - 13.0 secs 10/03/2014 9:31 EDT [facility] Comment: New prothrombin t doug range effective 09/17/14 I.N.R. 1.1 0.9 - 1.1 Ratio 10/03/2014 9:31 EDT [facility] Comment: Moderate Intensity Coumadin INR = 2.0-3.0 Adjustments in anticoagulant therapy dose should be based upon the INR and NOT the Pro Time. Blood specimen (specimen) BLOOD SPECIMEN / Unknown 10/03/2014 8:40 EDT 10/03/2014 9:09 EDT Brody Duran MD PhD HEMATOLOGY & PF 4 ORDERABLES [facility] [address] [place] [address] * (ABNORMAL) COMPREHENSIVE METABOLIC PANEL (CMP) (10/03/2014 8:40 EDT) Potassium 4.3 3.5 - 5.0 mEq/L 10/03/2014 9:38 [facility] Sodium 143 136 - 145 mEq/L 10/03/2014 9:38 [facility] Chloride 108 96 - 110 mEq/L 10/03/2014 9:38 [facility] CO2 27 24 - 32 mEq/L 10/03/2014 9:38 [facility] Total Alkaline Phosphatase 103 38 - 126 U/L 10/03/2014 9:38 [facility] Bilirubin, Total 1.6(H) <1.4 mg/dl 10/04/19 15 9:38 [facility] AST 28 15 - 46 U/L 10/03/2014 9:38 [facility] ALT 33 21 - 72 U/L 10/03/2014 9:38 [facility] Albumin 4.0 3.4 - 4.9 g/dl 10/03/2014 9:38 [facility] Total Protein 7.0 6.5 - 8.3 g/dl 10/03/2014 9:38 [facility] Creatinine 0.80 0.66 - 1.25 mg/dl 10/03/2014 9:38 [facility] GFR, Calculated >60 >60 ml/min/1.7 3m2 10/03/2014 9:38 [facility] BUN 20 10 - 26 mg/dl 10/03/2014 9:38 [facility] Calcium 9.9 8.5 - 10.5 mg/dl 10/03/2014 9:38 [facility] Calculated Calcium 10.3 8.5 - 10.5 mg/dl 10/03/2014 9:38 [facility] Glucose, Serum 122(H) 70 - 100 mg/dl 10/03/2014 9:38 [facility] Fasting? YES 10/03/2014 8:40 [facility] Blood specimen (specimen) BLOOD SPECIMEN / Unknown 10/03/2014 8:40 EDT 10/03/2014 9:09 EDT Brody Duran MD PhD CHEMISTRY & BLO OD GAS ORDERABLES [facility] [address] [place] [address] * (ABNORMAL) HEMAGRAM (10/03/2014 8:40 EDT) WBC 4.13 4.0 - 10.4 K/cmm 10/03/2014 9:17 [facility] RBC 4.55 4.36 - 5.78 M/cmm 10/03/2014 9:17 [facility] Hemoglobin 15.0 13.8 - 17.3 gm/dl 10/03/2014 9:17 [facility] HCT 42.9 39.5 - 50.2 % 10/03/2014 9:17 [facility] MCV 94 81 - 95 fl 10/03/2014 9:17 [facility] MCH 33.0 27.6 - 33.0 pg 10/03/2014 9:17 [facility] MCHC 35.0 32.8 - 36.4 gm/dl 10/03/2014 9:17 [facility] RDW-CV 14.3(H) 11.8 - 14.1 % 10/03/2014 9:17 [facility] RDW-SD 46.8(H) 36.5 - 45.9 fl 10/03/2014 9:17 [facility] PLT 100(L) 141 - 320 K/cmm 10/03/2014 9:17 [facility] MPV 6.7(L) 7.5 - 11.2 fl 10/03/2014 9:17 [facility] Blood specimen (specimen) BLOOD SPECIMEN / Unknown 10/03/2014 8:40 EDT 10/03/2014 9:09 EDT Brody Duran MD PhD HEMATOLOGY & PF 4 ORDERABLES [facility] [address] [place] [address] documented in this encounter Visit Diagnoses Diagnosis Chronic hepatitis C without mention of hepatic coma- Primary documented in this encounter Care Teams Mitochondrial Disorders Counselor Relationship Specialty Start Date End Date Kamala Rosado MD [address] [address] PCP - General 10/05/13 10/19/15 documented as of this encounter
--- OUTSIDE RECORDS SUMMARY | 2024-01-17 15:38 | XMS_ITS | Encounter Summary ---
Author Organization [facility] Address [address] [place] [address] Care Team Providers Care Baker Second Name Role Phone Kamala Rosado MD Primary Care Provider [phone] Reason for Visit * Reason Onset Date Comments Appointment Related 02/04/2015 Encounter Details Date Type Department Care Team (Late st Contact Info) Description 02/04/[address] [facility] Interventional Radiology - [address] [address] Mayank [place] Appointment Related Social History Tobacco [...] says he is having labs done in [place] on 02/13/15. He is unsure of the [...] Description 01/23/2024 10:[address] [facility] General Surgery - [facility] [address] [place], [place] [address] Bon Gutierrez MD 111 [facility], Level 5 [place] [phone] 09/10/2024 10:00 EDT Appointment Shaina Mejia [address] [place] [address] documented as of this encounter Visit Diagnoses Not on filedocumented in this encounter Care Teams Baker Second Relationship Specialty Start Date End Date Kamala Rosado MD [address] [phone] PCP - General 10/05/13 10/19/15 documented as of this encounter
--- OUTSIDE RECORDS SUMMARY | 2024-01-17 15:38 | XMS_ITS | Encounter Summary ---
Author Organization [facility] Address [address] [place] [address] Care Team Providers Care Improvement Nurse Name Role Phone Kamala Rosado MD Primary Care Provider [phone] Encounter Details Date Type Department Care Team (Late st Contact Info) Description 11/12/2014 7:29 EDT - 11/12/2014 23:59 EDT Hospital Encounter [address] [address] Guicho Rosales MD [address] [place] [address] [address] [place] [phone] Discharge Disposition: Auto Discharge Social History Tobacco [...] Info) Description 01/23/2024 10:00 EDT Office Visit [facility] General Surgery - [address] 5787[address] Bon Gutierrez MD 111 [facility], Level [address] [place] [address] 09/10/2024 10:00 EDT Appointment Shaina Mejia [address] [place] [address] documented as of this encounter Visit Diagnoses Not on filedocumented in this encounter Care Teams Improvement Nurse Relationship Specialty Start Date End Date Kamala Rosado MD [address] [address] PCP - General 10/05/13 10/19/15 documented as of this encounter
--- OUTSIDE RECORDS SUMMARY | 2024-01-17 15:38 | XMS_ITS | Encounter Summary ---
Author Organization [facility] Address [address] [place] [address] Care Team Providers Care Ceramics Machine Operator Name Role Phone Kamala Rosado MD Primary Care Provider [phone] Encounter Details Date Type Department Care Team (Late st Contact Info) Description 05/17/[address] [facility] [address] [place] [address] Assistant Kitchen Manager, Outpatient Cirrhosis of liver without mention of [...] Info) Description 01/23/2024 10:00 EDT Office Visit [facility] General Surgery - [facility] [address], [place] [address] Bon Gutierrez MD [address] [facility], [address] [place] [address] 09/10/2024 10:00 EDT Appointment Shain[facility] Bergeron Ultrasound [address] [place] [address] documented as of this encounter Procedures Procedure Name Priority Date/Time Associated Diagnosis Comments HCV RNA DETECT QUANT Routine 05/17/2014 11:43 EST Cirrhosis of liver without mention of alcohol Chronic hepatitis C without mention of hepatic coma documented in this encounter Results * HCV RNA DETECT QUANT (05/17/2014 11:43 EST) HCV RNA Detect Quant 348,635 IU/mL 05/20/2014 15:05 EST [facility] Comment: Reference Range: ??Undetected The quantification range of this assay is 15 IU/mL to 100,000,000 IU/mL. Testing was performed by the [employer] Ampl[employer]/Mili TaqMan HCV v2.0 ([employer] Blood specimen (specimen) BLOOD SPECIMEN / Unknown 05/17/2014 11:43 EST 05/17/2014 12:16 EST Brody Duran MD PhD CHEMISTRY & BLO OD GAS ORDERABLES [facility] [address] [place] [address] documented in this encounter Visit Diagnoses Diagnosis Cirrhosis of liver without mention of alcohol Chronic hepatitis C without mention of hepatic coma documented in this encounter Care Teams Ceramics Machine Operator Relationship Specialty Start Date End Date Kamala Rosado MD NPI: [id number] [place] [id number] PCP - General 10/05/13 10/19/15 documented as of this encounter
--- OUTSIDE RECORDS SUMMARY | 2024-01-17 15:39 | XMS_ITS | Encounter Summary ---
Author Organization [facility] Address [address] [place] [address] Care Team Providers Care Investigator Claims Name Role Phone Kamala Rosado MD Primary Care Provider [phone] Reason for Visit * Reason Comments Hemoptysis I starting coughing up blood recently has been having Rectal blood has been feeling tired was recently DC from hospital, states has low hct. Encounter Details Date Type Department Care Team (Late st Contact Info) Description 01/22/2014 11:35 EDT - 01/29/2014 11:55 EDT Hospital Encounter [facility] General Medicine Unit [address] [place] [address] Kalani Parsons MD [address] [facility], Level 1 [place] [phone] Manoj Valencia MD [address] [phone] Louisa Gurrola MD MPH [address] [phone] GI bleed (Primary Dx); Hematemesis; [...] esophageal varices and portal gastropathy (s/p banding 2009), and multiple prior GI bleeds was admitted [...] with [facility] (--) [address] [facility] [address] Follow-Up Appointments and Procedures Recommended to Patient: Follow-up appointments and procedures You will follow up with interventional radiology in about 3 months, they will call to schedule an appt. Their number is [phone] You also have an appt with Dr. Nath of GI on Mar 15 at 1pm . Their number is [phone] Future Appointments Date Time Provider Department Center [...] patient today: 35 Minutes LOUISA GURROLA MD [facility] Inpatient Service 01/29/2014 12:33 documented in this encounter Discharge Instructions * Discharge Instructions* Adelaide Fuentes RN - 01/28/2014 15:39 EDT RADIOLOGY PATIENT INFORMATION [...] to schedule an appt. Their number is [phone] You also have an appt with Dr. Nath of GI on Mar 15 at 1pm . Their number is [phone] documented in this encounter Medications at Time [...] documented in this encounter Progress Notes * FILLING MACHINE OPERATOR, SCAN 2 - 02/15/2014 0330 EST * [...] 12:08 * Zac Rollins MD - 01/29/2014 0778 EDT Interventional Radiology Progress Note Admit Date: [...] months (we will coordinate). IR clinic #: [id number] - OK for discharge from IR perspective, [...] diet. * Louisa Gurrola MD - 01/28/2014 0915 EDT Medicine Progress Note Admit Date: 01/22/2014 [...] 1.18* 1.74* -- BMP: Recent Labs 01/26/14 0519 01/27/14 0501/28/14 0528 NA 139 137 140 K 3.7 4.2 [...] in the note above. LOUISA GURROLA MD [facility] Inpatient Service 01/28/2014 16:01 * Bishop Goins [...] no edema, WWP Labs: CBC: Recent Labs 01/26/14 17501/27/1452101/27/141751 WBC 2.53* 2.30* 2.94* HGB 8.0* 8.8* [...] Consults: GI Abdiaziz Cruz MD--PGY1 Pager # [phone] 01/27/2014 7:39 ATTENDING ATTESTATION: Date of service: [...] patient today: 25 Minutes Manoj Valencia MD [facility] Inpatient Service 01/27/2014 11:32 * Bishop Goins [...] cyanosis, or clubbing; Labs: CBC: Recent Labs 01/24/1452501/25/1460301/26/14518 WBC 4.10 2.42* 1.61* HGB 7.9* 7.5* 6.4* HCT 23.9* 22.0* 19.5* PLT 130* 88* 70* BMP: Recent Labs 01/24/1452501/25/1460301/26/14 05 NA 139 140 139 K 3.6 [...] speech non-pressured Labs: CBC: Recent Labs 01/24/14 0501/25/14 0604 01/26/14 0519 WBC 4.10 2.42* 1.61* [...] Consults: LA NENA Cruz MD--PGY1 Pager # [phone] 01/26/2014 8:41 ATTENDING ATTESTATION: Date of service: [...] patient today: 35 Minutes Manoj Valencia MD [facility] Inpatient Service 01/26/2014 12:31 * Manoj Valencia [...] LA NENA Hancock MD PGY-2 Pager # [phone] 01/25/2014 15:05 ATTENDING ATTESTATION: Date of service: [...] patient today: 25 Minutes Manoj Valencia MD [facility] Inpatient Service 01/25/2014 16:03 * Bishop Goins - 01/24/2014 1400 EDT Internal Medicine Progress Note Admit Date: 01/22/2014 11:35 ( LOS: 2 days ) Date of Service: 01/24/2014 Time of Patient Evaluation: 829 Summary: Alonzo Urbina is a 58 year old male with a history significant for 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) with know esophageal varices status post esophageal banding approximately 4 years ago and chronic occult GI bleeding presenting as either hematemesis, hematochezia, or melana with multiple Esophagogastroduodenoscopies, colonoscopies, and a capsule endoscopy performed and [facility] who presented to the ED yesterday after [...] CBC Daily -GI following -Ceftriaxone 1g Day 06/15 -Nadolol changed to Coreg 6.25mg BID -Hold [...] source and pancytopenia - CTX 1g day 06/15 for prophylaxis - Coreg 6.25 BID Nausea/Vommiting/Decreased [...] Consults: GI Abdiaziz Cruz MD--PGY1 Pager # [phone] 01/24/2014 9:54 ATTENDING ATTESTATION: Date of service: [...] patient today: 25 Minutes Manoj Valencia MD [facility] Inpatient Service 01/24/2014 12:01 * Margareth Lenz [...] services: DME Provider: Pharmacy: [facility] in [place] LIVING ARRANGEMENTS AND ACCESSIBILITY ISSUES: House Are there any home access issues? No What in home social supports are available to the patient? Lives with significant other in [place]. ADVANCED DIRECTIVES, POA &/or COLST IN PLACE: No CULTURAL, RESTORATION and/or LANGUAGE factors affecting health care/discharge planning:: [...] indicated. Margareth Lenz RN 01/23/2014 15:22 * BusterBishop gay - 01/23/2014 0902 EDT Internal Medicine Progress Note Admit Date: [...] colonoscopies, and a capsule endoscopy performed and [facility] who presented to the ED yesterday after [...] Consults: LA NENA Cruz MD--PGY1 Pager # [phone] 01/23/2014 9:09 ATTENDING ATTESTATION: Date of service: [...] patient today: 35 Minutes Manoj Valencia MD [facility] Inpatient Service 01/23/2014 9:23 documented in this encounter H&P Notes * Zac Rollins MD - 01/28/2014 1151 EDT Interventional Radiology Pre-Sedation H&P Update The [...] OK for planned TIPS Zac Rollins MD #[id number] * Bishop Goins - 01/25/2014 1204 EDT [...] -CBC Daily -GI following -Ceftriaxone 1g Day / -Coreg 6.25mg BID [...] 12:05 * Manoj Valencia MD - 01/22/2014 2929 EDT Internal Medicine Admission H&P Admission Date: 01/22/2014 Date of Service: 01/22/2014 PCP: Kamala Rosado MD CC: Hematemesis Subjective: HPI: 58 y.o. [...] culprit varices. During that admission he underwent /2 which was also normal. As his melena [...] Consults: LA NENA Cruz MD--PGY1 Pager # [phone] 01/22/2014 13:34 ATTENDING ATTESTATION: Date of service: [...] documented in this encounter Procedure Notes * FILLING MACHINE OPERATOR, SCAN 2 - 02/15/2014 0331 ESTAssociated Order(s): PROCEDURE REPORTS - SCANNED * Zac Rollins MD - 01/28/2014 1544 EDT IR Brief Procedure Note Attending: Bobby Lead Designer: April Rollins Pre-op Dx: Hepatitis C, Cirrhosis, [...] appointment in 3 months Zac Rollins MD #[id number] documented in this encounter Consult Notes * [...] Alejandro MD GI and Hepatology Fellow Pager [phone] Attestation statement: I saw and examined the [...] Alejandro MD GI and Hepatology Fellow Pager [phone] * José Catalan MD - 01/22/2014 6332 EDT Gastroenterology & Hepatology Consult Note The Gastroenterology service was consulted to see Alonzo Urbina for coffee ground emesis Requesting Physician: Manoj Valencia MD HPI: 58 y.o.male with 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 His previous workup has included multiple EGD's, colonoscopies, and a capsule study at [facility] (results of these tests are scanned into [...] should not hold up his discharge from thehospital. This patient was seen and examined with Dr. Alayna Alejandro MD Gastroenterology & Hepatology Fellow #[id number] Attestation statement: I saw and examined the [...] 11:09:11 A Positive Positive SPECIMEN EXPIRES 01/25/2014 @2441 PREPARE RED BLOOD CELLS (Final result) Component (Lab Inquiry) Collection Time Result Time Product Code Donor Number Unit ABO Unit Rh Cross Match Interp 01/22/14 10:30:00 01/23/14 08:20:32 E0336 -1 RED BLOOD CELLS, Leukocytes Reduced [id number] POS Compatible Collection Time Result Time Unit Status 01/22/14 10:30:00 01/23/14 08:20:32 Transfuse PREPARE RED BLOOD CELLS (Final result) Component (Lab Inquiry) Collection Time Result Time Product Code Donor Number Unit ABO Unit Rh Cross Match Interp 01/22/14 10:30:00 01/26/14 07:35:44 E0336 -1 RED BLOOD CELLS, Leukocytes Reduced [id number] POS Compatible Collection Time Result Time [...] Miscellaneous Notes * Plan of Care - Cehn Salas RN - 01/29/2014 0440 EDT Problem: [...] EDT Problem: PSYCHOSOCIAL Goal: Demonstrates Ability To [place]arrison With Hospitalization Outcome: Ongoing Data: I'm just [...] applied to lower back by pt. 2.) Jan. Gtt maintained. Pt assessed for any signs [...] Office Visit [facility] General Surgery - [address] [id number] Bon Gutierrez MD [address] [facility], Level 5 [place] [phone] 09/10/2024 10:00 EDT Appointment Shaina Mejia [address] [place] [phone] Pending Results Name Type Priority Associated Diagnoses [...] EST Narrative 02/15/2014 4:10 EST Procedure Note FILLING MACHINE OPERATOR, SCAN 2 - 02/15/2014 3:31 EST Scan 2 Surgical Clinical Reviewer PROCEDURE/MINOR TY GICAL ORDERABLES * TRANSFUSION RECORD - SCANNED (02/01/2014 8:48 EDT) 02/01/2014 8:48 EDT Scan 2 Surgical Clinical Reviewer LAB INFO SERVICE AN D SUPPORT & [...] & PF4 ORD ERABLES Performing Organization Address [facility] de Phone Number [facility] [address] [place] [address] * (ABNORMAL) HEMAGRAM (01/29/2014 5:25 EDT) WBC [...] & PF4 ORD ERABLES Performing Organization Address City/[facility] Co de Phone Number [facility] [address] [place] [address] * CREATININE (01/29/2014 5:25 EDT) Creatinine 0.87 0.66 - 1.25 mg/dl [facility] GFR, Calculated >60 >60 ml/min/1.7 3m2 [facility] Blood specimen (specimen) 01/29/2014 5:25 EDT 01/29/2014 7:02 EDT Abdiaziz Cruz MD CHEMISTRY & BLOOD GA S ORDERABLES Performing Organization Address [facility] de Phone Number [facility] [address] [place] [address] * BUN (01/29/2014 5:25 EDT) BUN 15 10 - 26 mg/dl [facility] Blood specimen (specimen) 01/29/2014 5:25 EDT 01/29/2014 7:02 EDT Abdiaziz Cruz MD CHEMISTRY & BLOOD GA S ORDERABLES Performing Organization Address [facility] de Phone Number [facility] [address] [place] [address] * ELECTROLYTES (01/29/2014 5:25 EDT) Sodium 136 136 - 145 mEq/L [facility] Potassium 3.7 3.5 - 5.0 mEq/L [facility] Chloride 103 96 - 110 mEq/L [facility] CO2 26 24 - 32 mEq/L [facility] Blood specimen (specimen) 01/29/2014 5:25 EDT 01/29/2014 7:02 EDT Abdiaziz Cruz MD CHEMISTRY & BLOOD GA S ORDERABLES Performing Organization Address [facility] de Phone Number [facility] [address] [place] [address] * IR TIPS (01/28/2014 15:40 EDT) Anatomical Region Laterality Modality Other 01/28/2014 15:4 0 EDT 01/29/2014 16:01 EDT Narrative 01/29/2014 16:01 EDT TRANSJUGULAR INTRAHEPATIC PORTOSYSTEMIC SHUNT (TIPS) PLACEMENT Date: 01/28/2014 Comparisons: CT abdomen on 01/28/2014. Right upper quadrant ultrasound on 12/11/2013. Patient: Alonzo Urbina Attending: Dr. Guicho Rosales Lead Designer: Dr. Zac Rollins, Dr. Guicho Chen Preprocedure [...] exchanged over a guidewire for a 4 Bulgarian microsheath. The microsheath was removed over a 3J guidewire and the track was dilated. A 10 Bulgarian Arrow sheath was placed. A 5 Bulgarian multipurpose catheter was advanced over a Terumo [...] into the main portal vein. A 4 Bulgarian multipurpose catheter was advanced into the main portal vein and portal venography was performed confirming satisfactory access. The multipurpose catheter was then removed over a Dumont guidewire. The parenchymal track was dilated with serial inflations of 4 mm diameter by 40 mm length Woodland balloon. The track was further dilated with multiple inflations of an 8 mm diameter by 40 mm length Woodland balloon. An initial attempt at advancing a covered stent across the parenchymal track was unsuccessful due to redundancy in the right atrium. Therefore, the Dumont guidewire was exchanged through a catheter for a stiff Amplatz guidewire. The TIPS sheath was exchanged over the Amplatz guidewire for a long 10 Bulgarian Arrow sheath. A 10 mm diameter by 60 cm length Fluency self-expanding covered stent was then successfully deployed across the parenchymal track. A nested 12 mm diameter by 40 mm length LifeStar self-expanding stent was then placed, flaring into the right portal vein. The stents were then dilated with serial inflations of a 10 mm diameter by 40 mm length Woodland balloon. A nested 10 mm diameter by [...] Right upper quadrant ultrasound on 12/11/2013. Patient: Alozno Urbina Attending: Dr. Guicho Rosales Lead Designer: Dr. Zac Rollins, Dr. Guicho Chen Preprocedure [...] exchanged over a guidewire for a 4 Bulgarian microsheath. The microsheath was removed over a 3J guidewire and the track was dilated. A 10 Bulgarian Arrow sheath was placed. A 5 Bulgarian multipurpose catheter was advanced over a Terumo [...] into the main portal vein. A 4 Bulgarian multipurpose catheter was advanced into the main portal vein and portal venography was performed confirming satisfactory access. The multipurpose catheter was then removed over a Dumont guidewire. The parenchymal track was dilated with serial inflations of 4 mm diameter by 40 mm length Woodland balloon. The track was further dilated with multiple inflations of an 8 mm diameter by 40 mm length Woodland balloon. An initial attempt at advancing a covered stent across the parenchymal track was unsuccessful due to redundancy in the right atrium. Therefore, the Dumont guidewire was exchanged through a catheter for a stiff Amplatz guidewire. The TIPS sheath was exchanged over the Amplatz guidewire for a long 10 Bulgarian Arrow sheath. A 10 mm diameter by 60 cm length Fluency self-expanding covered stent was then successfully deployed across the parenchymal track. A nested 12 mm diameter by 40 mm length LifeStar self-expanding stent was then placed, flaring into the right portal vein. The stents were then dilated with serial inflations of a 10 mm diameter by 40 mm length Woodland balloon. A nested 10 mm diameter by [...] agree with the findings. Elva Ibrahim MD [facility] ORDERABLES * (ABNORMAL) DIFFERENTIAL (01/28/2014 5:28 [...] PF4 ORD ERABLES [facility] [address] [place] [address] * (ABNORMAL) HEMAGRAM (01/28/2014 5:28 EDT) WBC [...] & PF4 ORD ERABLES Performing Organization Address [facility] Co de Phone Number [facility] [address] [place] [address] * CREATININE (01/28/2014 5:28 EDT) Creatinine 0.89 0.66 - 1.25 mg/dl [facility] GFR, Calculated >60 >60 ml/min/1.7 3m2 [facility] Blood specimen (specimen) 01/28/2014 5:28 EDT 01/28/2014 6:14 EDT Abdiaziz Cruz MD CHEMISTRY & BLOOD GA S ORDERABLES Performing Organization Address [facility] de Phone Number [facility] [address] [place] [address] * BUN (01/28/2014 5:28 EDT) BUN 16 10 - 26 mg/dl [facility] Blood specimen (specimen) 01/28/2014 5:28 EDT 01/28/2014 6:14 EDT Abdiaziz Cruz MD CHEMISTRY & BLOOD GA S ORDERABLES Performing Organization Address [facility] Phone Number [facility] [address] [place] [address] * (ABNORMAL) ELECTROLYTES (01/28/2014 5:28 EDT) Sodium 140 136 - 145 mEq/L [facility] Potassium 4.0 3.5 - 5.0 mEq/L [facility] Chloride 110 96 - 110 mEq/L [facility] CO2 23(L) 24 - 32 mEq/L [facility] Blood specimen (specimen) 01/28/2014 5:28 EDT 01/28/2014 6:14 EDT Abdiaziz Cruz MD CHEMISTRY & BLOOD GA S ORDERABLES Performing Organization Address [facility] Co de Phone Number [facility] [address] [place] [address] * PROTIME (01/28/2014 5:28 EDT) Pro Time 12.0 9.5 - 12.3 secs [facility] I.N.R. 1.1 0.9 - 1.1 Ratio [facility] Comment: Moderate Intensity Coumadin INR = 2.0-3.0 Adjustments in anticoagulant therapy dose should be based upon the INR and NOT the Pro Time. Blood specimen (specimen) 01/28/2014 5:28 EDT 01/28/2014 6:14 EDT Abdiaziz Cruz MD HEMATOLOGY & PF4 ORD ERABLES Performing Organization Address [facility] Co de Phone Number [facility] [address] [place] [address] * PTT (01/28/2014 5:28 EDT) Pathologist [facility] PTT 32 26 - 37 secs [facility] Comment:Therapeutic Heparin range: 65-100 seconds Blood specimen (specimen) 01/28/2014 5:28 EDT 01/28/2014 6:14 EDT Abdiaziz Cruz MD HEMATOLOGY & PF4 ORD ERABLES Performing Organization Address [facility] de Phone Number [facility] [address] [place] [address] * (ABNORMAL) DIFFERENTIAL (01/27/2014 17:52 EDT) Pathologist [facility] % Neutrophils 59.1 45.5 - 79.7 % [...] & PF4 ORD ERABLES Performing Organization Address City/[facility] Co de Phone Number [facility] [address] [place] [address] * (ABNORMAL) HEMAGRAM (01/27/2014 17:52 EDT) WBC 2.94(L) 4.0 - 10.4 K/cmm [facility] RBC 3.10(L) 4.36 - 5.78 M/cmm [facility] Hemoglobin 8.8(L) 13.8 - 17.3 gm/dl [facility] HCT 26.4(L) 39.5 - 50.2 % [facility] MCV 85 81 - 95 fl [facility] MCH 28.3 27.6 - 33.0 pg [facility] MCHC 33.2 32.8 - 36.4 gm/dl [facility] PLT 83(L) 141 - 320 K/cmm [facility] RDW-CV 16.0(H) 11.8 - 14.1 % [facility] 01/27/2014 17:5 2 EDT 01/27/2014 18:42 EDT Abdiaziz Cruz MD HEMATOLOGY & PF4 ORD ERABLES Performing Organization Address [facility] Co de Phone Number [facility] [address] [place] [address] * (ABNORMAL) DIFFERENTIAL (01/27/2014 5:22 EDT) Neutrophils [...] [facility] Type of Diff: Manual [facility] 01/27/2014 5:22 EDT 01/27/2014 6:10 EDT Abdiaziz Cruz MD HEMATOLOGY & PF4 ORD ERABLES [facility] [address] [place] [address] * (ABNORMAL) HEMAGRAM (01/27/2014 5:22 EDT) WBC [...] & PF4 ORD ERABLES Performing Organization Address [facility] Co de Phone Number [facility] [address] [place] [address] * CREATININE (01/27/2014 5:22 EDT) Creatinine 1.02 0.66 - 1.25 mg/dl [facility] GFR, Calculated >60 >60 ml/min/1.7 3m2 [facility] Blood specimen (specimen) 01/27/2014 5:22 EDT 01/27/2014 6:10 EDT Abdiaziz Cruz MD CHEMISTRY & BLOOD GA S ORDERABLES Performing Organization Address [facility] Co de Phone Number [facility] [address] [place] [address] * BUN (01/27/2014 5:22 EDT) BUN 16 10 - 26 mg/dl [facility] Blood specimen (specimen) 01/27/2014 5:22 EDT 01/27/2014 6:10 EDT Abdiaziz Cruz MD CHEMISTRY & BLOOD GA S ORDERABLES Performing Organization Address [facility] de Phone Number [facility] [address] [place] [address] * ELECTROLYTES (01/27/2014 5:22 EDT) Sodium 137 136 - 145 mEq/L [facility] Potassium 4.2 3.5 - 5.0 mEq/L [facility] Chloride 105 96 - 110 mEq/L [facility] CO2 25 24 - 32 mEq/L [facility] Blood specimen (specimen) 01/27/2014 5:22 EDT 01/27/2014 6:10 EDT Abdiaziz Cruz MD CHEMISTRY & BLOOD GA S ORDERABLES Performing Organization Address [facility]/ZIP Co de Phone Number [facility] [address] [place] [address] * TRANSFUSE RED BLOOD CELLS (01/26/2014 21:54 [...] [facility] Type of Diff: Manual [facility] 01/26/2014 17:5 3 EDT 01/26/2014 18:11 EDT Abdiaziz Cruz MD HEMATOLOGY & PF4 ORD ERABLES [facility] [address] [place] [address] * (ABNORMAL) HEMAGRAM (01/26/2014 17:53 EDT) WBC 2.53(L) 4.0 - 10.4 K/cmm [facility] RBC 2.85(L) 4.36 - 5.78 M/cmm [facility] Hemoglobin 8.0(L) 13.8 - 17.3 gm/dl [facility] HCT 24.2(L) 39.5 - 50.2 % [facility] MCV 85 81 - 95 fl [facility] MCH 27.9 27.6 - 33.0 pg [facility] MCHC 32.8 32.8 - 36.4 gm/dl [facility] PLT 80(L) 141 - 320 K/cmm [facility] RDW-CV 16.3(H) 11.8 - 14.1 % [facility] 01/26/2014 17:5 3 EDT 01/26/2014 18:11 EDT Abdiaziz Cruz MD HEMATOLOGY & PF4 ORD ERABLES Performing Organization Address City/[facility]/ZIP Co de Phone Number [facility] [address] [place] [address] * INPATIENT ADD-ON (01/26/2014 9:55 EDT) Tests to be added DIFFERENTIAL [facility] Number for problems [id number] [facility] Accession number [id number] [facility] 01/26/2014 9:55 EDT 01/26/2014 10:05 EDT Abdiaziz Cruz MD HEMATOLOGY & PF4 ORD ERABLES Performing Organization Address [facility] Co de Phone Number [facility] [address] [place] [address] * ANTIBODY IDENTIFICATION (01/26/2014 9:27 EDT) Antibody Identification Anti-E Anti-c (joseph) [facility] 01/26/2014 9:27 EDT Provider Unknown MD BLOOD BANK TESTS Performing Organization Address City/[facility]/ZIP Co de Phone Number [facility] * PREPARE RED BLOOD CELLS (01/26/2014 8:05 EDT) Product Code E0336 -1 RED BLOOD CELLS, Leukocytes Reduced [facility] Donor Number [id number] [facility] Unit ABO A [facility] Rh POS [facility] Cross Match Interp Compatible [facility] Unit Status Transfuse [facility] BLOOD BANK 01/26/2014 8:05 EDT Provider Khurram LESTER BLOOD BANK ORDERABLE S Performing Organization Address [facility]/ZIP Co de Phone Number [facility] BLOOD BANK * PREPARE RED BLOOD CELLS (01/26/2014 8:05 EDT) Product Code E0336 -1 RED BLOOD CELLS, Leukocytes Reduced [facility] Donor Number [id number] [facility] ABO A [facility] Unit Rh POS [facility] BLOOD BANK Cross Match Interp Compatible [facility] Unit Status Transfuse [facility] Blood specimen (specimen) 01/26/2014 8:05 EDT Abdiaziz Cruz MD BLOOD BANK ORDERABLE S Performing Organization Address [facility]/ZIP Co de Phone Number [facility] BLOOD BANK * TYPE AND SCREEN (01/26/2014 8:05 EDT) Antibody Screen Positive [facility]OD [facility] Comment:SPECIMEN EXPIRES AT 23:59 ON 01/29/2014 ABO A [facility] Rh Factor Positive [facility] Blood specimen (specimen) 01/26/2014 8:05 EDT Abdiaziz Cruz MD BLOOD BANK TESTS Performing Organization Address City/[facility]/ZIP Co de Phone Number [facility] * (ABNORMAL) DIFFERENTIAL (01/26/2014 5:19 EDT) Neutrophils 45.0(L) 45.5 - 79.7 % [facility] Lymphocytes 46.0 15.0 - 46.8 % [facility] Monocytes 5.0 1.8 - 12.0 % [facility] Eosinophils 4.0 0.6 - 6.9 % [facility] Nucleated RBC's 1 /100 WBC'S [facility] ABS Neutrophils 0.72(L) 2.20 - 8.85 K/cmm [facility] ABS Lymphs 0.75(L) 1.09 - 3.30 K/cmm [facility] ABS Monocytes 0.08(L) 0.1 - 0.8 K/cmm [facility] ABS Eosinophils 0.06 0.03 - 0.61 K/cmm [facility] Ovalocytes 2+ [facility] Type of Diff: Manual [facility] Differential Comment Rev'd by Pathologist [facility] 01/26/2014 5:19 EDT 01/26/2014 6:32 EDT Abdiaziz Cruz MD HEMATOLOGY & PF4 ORD ERABLES Performing Organization Address City/[facility]/ZIP Co de Phone Number [facility] [address] [place] [address] * (ABNORMAL) HEMAGRAM (01/26/2014 5:19 EDT) WBC 1.61(L) 4.0 - 10.4 K/cmm [facility] RBC 2.29(L) 4.36 - 5.78 M/cmm [facility] Hemoglobin 6.4(LL) 13.8 - 17.3 gm/dl [facility] HCT 19.5(LL) 39.5 - 50.2 % [facility] MCV 85 81 - 95 fl [facility] MCH 28.1 27.6 - 33.0 pg [facility] MCHC 33.0 32.8 - 36.4 gm/dl [facility] PLT 70(L) 141 - 320 K/cmm [facility] RDW-CV 16.5(H) 11.8 - 14.1 % [facility] Comment:1+ Anisocytosis Blood specimen (specimen) 01/26/2014 5:19 EDT 01/26/2014 6:32 EDT Abdiaziz Cruz MD HEMATOLOGY & PF4 ORD ERABLES [facility] [address] [place] [address] * CREATININE (01/26/2014 5:19 EDT) Creatinine 0.90 0.66 - 1.25 mg/dl [facility] GFR, Calculated >60 >60 ml/min/1.7 3m2 [facility] Blood specimen (specimen) 01/26/2014 5:19 EDT 01/26/2014 6:32 EDT Abdiaziz Cruz MD CHEMISTRY & BLOOD GA S ORDERABLES Performing Organization Address [facility] de Phone Number [facility] [address] [place] [address] * BUN (01/26/2014 5:19 EDT) BUN 19 10 - 26 mg/dl [facility] Blood specimen (specimen) 01/26/2014 5:19 EDT 01/26/2014 6:32 EDT Abdiaziz Cruz MD CHEMISTRY & BLOOD GA S ORDERABLES Performing Organization Address [facility] de Phone Number [facility] [address] [place] [address] * (ABNORMAL) ELECTROLYTES (01/26/2014 5:19 EDT) Sodium 139 136 - 145 mEq/L [facility] Potassium 3.7 3.5 - 5.0 mEq/L [facility] Chloride 110 96 - 110 mEq/L [facility] CO2 22(L) 24 - 32 mEq/L [facility] Blood specimen (specimen) 01/26/2014 5:19 EDT 01/26/2014 6:32 EDT Abdiaziz Cruz MD CHEMISTRY & BLOOD GA S ORDERABLES Performing Organization Address [facility] Co de Phone Number [facility] [address] [place] [address] * (ABNORMAL) HEMAGRAM (01/25/2014 6:04 EDT) WBC 2.42(L) 4.0 - 10.4 K/cmm [facility] RBC 2.58(L) 4.36 - 5.78 M/cmm [facility] Hemoglobin 7.5(L) 13.8 - 17.3 gm/dl [facility] HCT 22.0(L) 39.5 - 50.2 % [facility] MCV 85 81 - 95 fl [facility] MCH 29.2 27.6 - 33.0 pg [facility] MCHC 34.2 32.8 - 36.4 gm/dl [facility] PLT 88(L) 141 - 320 K/cmm [facility] RDW-CV 16.8(H) 11.8 - 14.1 % [facility] Comment:1+ Anisocytosis Blood specimen (specimen) 01/25/2014 6:04 EDT 01/25/2014 6:44 EDT Abdiaziz Cruz MD HEMATOLOGY & PF4 ORD ERABLES Performing Organization Address City/[facility]/ZIP Co de Phone Number [facility] [address] [place] [address] * CREATININE (01/25/2014 6:04 EDT) Creatinine 1.13 0.66 - 1.25 mg/dl [facility] GFR, Calculated >60 >60 ml/min/1.[address] [facility] Blood specimen (specimen) 01/25/2014 6:04 EDT 01/25/2014 6:44 EDT Abdiaziz Cruz MD CHEMISTRY & BLOOD GA S ORDERABLES Performing Organization Address City/[facility]/ZIP Co de Phone Number [facility] [address] [place] [address] * BUN (01/25/2014 6:04 EDT) BUN 18 10 - 26 mg/dl [facility] Blood specimen (specimen) 01/25/2014 6:04 EDT 01/25/2014 6:44 EDT Abdiaziz Cruz MD CHEMISTRY & BLOOD FL S ORDERABLES Performing Organization Address [facility] Co de Phone Number [facility] [address] [place] [address] * (ABNORMAL) ELECTROLYTES (01/25/2014 6:04 EDT) Sodium 140 136 - 145 mEq/L [facility] Potassium 3.8 3.5 - 5.0 mEq/L [facility] Chloride 110 96 - 110 mEq/L [facility] CO2 21(L) 24 - 32 mEq/L [facility] Blood specimen (specimen) 01/25/2014 6:04 EDT 01/25/2014 6:44 EDT Abdiaziz Cruz MD CHEMISTRY & BLOOD GA S ORDERABLES Performing Organization Address [facility] de Phone Number [facility] [address] [place] [address] * (ABNORMAL) HEMAGRAM (01/24/2014 5:26 EDT) WBC 4.10 4.0 - 10.4 K/cmm [facility] RBC 2.78(L) 4.36 - 5.78 M/cmm [...] & PF4 ORD ERABLES Performing Organization Address [facility] Co de Phone Number [facility] [address] [place] [address] * CREATININE (01/24/2014 5:26 EDT) Creatinine 1.15 0.66 - 1.25 mg/dl [facility] GFR, Calculated >60 >60 ml/min/1.7 3m2 [facility] Blood specimen (specimen) 01/24/2014 5:26 EDT 01/24/2014 6:02 EDT Abdiaziz Cruz MD CHEMISTRY & BLOOD GA S ORDERABLES Performing Organization Address [facility] de Phone Number [facility] [address] [place] [address] * BUN (01/24/2014 5:26 EDT) BUN 21 10 - 26 mg/dl [facility] Blood specimen (specimen) 01/24/2014 5:26 EDT 01/24/2014 6:02 EDT Abdiaziz Cruz MD CHEMISTRY & BLOOD GA S ORDERABLES Performing Organization Address [facility] de Phone Number [facility] [address] [place] [address] * (ABNORMAL) ELECTROLYTES (01/24/2014 5:26 EDT) Sodium 139 136 - 145 mEq/L [facility] Potassium 3.6 3.5 - 5.0 mEq/L [facility] Chloride 110 96 - 110 mEq/L [facility] CO2 20(L) 24 - 32 mEq/L [facility] Blood specimen (specimen) 01/24/2014 5:26 EDT 01/24/2014 6:02 EDT Abdiaziz Cruz MD CHEMISTRY & BLOOD GA S ORDERABLES Performing Organization Address [facility] Co de Phone Number [facility] [address] [place] [address] * (ABNORMAL) HEMAGRAM (01/23/2014 21:30 EDT) WBC [...] LAB RDW-CV 17.4(H) 11.8 - 14.1 % [facility] Comment:1+ Anisocytosis Blood specimen (specimen) 01/23/2014 21:30 EDT 01/23/2014 21:39 EDT Abdiaziz Cruz MD HEMATOLOGY & PF4 ORD ERABLES [facility] [address] [place] [address] * (ABNORMAL) HEMAGRAM (01/23/2014 13:57 EDT) WBC 4.56 4.0 - 10.4 K/cmm [facility] RBC 2.91(L) 4.36 - 5.78 M/cmm [facility] Hemoglobin 8.2(L) 13.8 - 17.3 gm/dl [...] & PF4 ORD ERABLES Performing Organization Address [facility] Co de Phone Number [facility] [address] [place] [address] * (ABNORMAL) HEMAGRAM (01/23/2014 5:45 EDT) WBC [...] & PF4 ORD ERABLES Performing Organization Address [facility] Co de Phone Number [facility] [address] [place] [address] * CREATININE (01/23/2014 5:45 EDT) Creatinine 1.01 0.66 - 1.25 mg/dl [facility] GFR, Calculated >60 >60 ml/min/1.7 3m2 [facility] Blood specimen (specimen) 01/23/2014 5:45 EDT 01/23/2014 6:18 EDT Abdiaziz Cruz MD CHEMISTRY & BLOOD GA S ORDERABLES Performing Organization Address City/[facility]/ZIP Co de Phone Number [facility] [address] [place] [address] * BUN (01/23/2014 5:45 EDT) BUN 26 10 - 26 mg/dl [facility] Blood specimen (specimen) 01/23/2014 5:45 EDT 01/23/2014 6:18 EDT Abdiaziz Cruz MD CHEMISTRY & BLOOD GA S ORDERABLES Performing Organization Address [facility] Co de Phone Number [facility] [address] [place] [address] * (ABNORMAL) ELECTROLYTES (01/23/2014 5:45 EDT) Sodium 143 136 - 145 mEq/L [facility] Potassium 4.0 3.5 - 5.0 mEq/L [facility] Chloride 114(H) 96 - 110 mEq/L [facility] CO2 19(L) 24 - 32 mEq/L [facility] Blood specimen (specimen) 01/23/2014 5:45 EDT 01/23/2014 6:18 EDT Abdiaziz Cruz MD CHEMISTRY & BLOOD GA S ORDERABLES Performing Organization Address City/[facility] Co de Phone Number [facility] [address] [place] [address] * (ABNORMAL) SCREENING GLUCOSE (01/23/2014 5:45 EDT) Glucose, Screening 122(H) 70 - 100 mg/dl [facility] Blood specimen (specimen) 01/23/2014 5:45 EDT 01/23/2014 6:18 EDT Abdiaziz Cruz MD CHEMISTRY & BLOOD GA S ORDERABLES Performing Organization Address City/[facility] Co de Phone Number [facility] [address] [place] [address] * TRANSFUSE RED BLOOD CELLS (01/23/2014 2:01 [...] MD HEMATOLOGY & PF4 ORD ERABLES [facility] [address] [place] [address] * (ABNORMAL) GLUCOSE, GLUCOMETER (01/22/2014 16:51 EDT) Glucose, Fingerstick 185(H) 70 - 100 mg/dl [facility] Ground [place] [id number] [facility] Comment:Test Performed by [facility] 01/22/2014 16:5 1 EDT 01/22/2014 16:52 EDT Manoj Valencia MD CHEMISTRY & BLOOD GAS ORDERABLES [facility] [address] [place] [address] * ANTIBODY IDENTIFICATION (01/22/2014 11:09 EDT) Antibody Identification Anti-E Anti-c (joseph) [facility] 01/22/2014 11:0 9 EDT Provider Unknown BLOOD BANK TESTS Performing Organization Address City/[facility]/ZIP Co de Phone Number [facility] * PREPARE RED BLOOD CELLS (01/22/2014 10:30 EDT) Product Code E0336 -1 RED BLOOD CELLS, Leukocytes Reduced [facility] Donor Number [id number] [facility] ABO A [facility] Rh POS [facility] Cross Match Interp Compatible [facility] Unit Status Released From [facility] 01/22/2014 10:3 0 EDT Provider Unknown BLOOD BANK ORDERABLE S Performing Organization Address City/[facility]/ZIP Co de Phone Number [facility] * PREPARE RED BLOOD CELLS (01/22/2014 10:30 EDT) Product Code E0336 -1 RED BLOOD CELLS, Leukocytes Reduced [facility] Donor Number [id number] [facility] ABO A [facility] Rh POS [facility] Cross Match Interp Compatible [facility] Unit Status Transfuse [facility] Blood specimen (specimen) 01/22/2014 10:30 EDT Kalani Parsons MD BLOOD BANK ORDE JARETH [facility] * TYPE AND SCREEN (01/22/2014 10:30 EDT) ABO A [facility]LOOD [facility] Rh Factor Positive [facility]OD [facility] Antibody Screen Positive [facility] Comment:SPECIMEN EXPIRES @[id number] Blood specimen (specimen) 01/22/2014 10:30 EDT Kalani Parsons MD BLOOD BANK TEST S Performing Organization Address [facility] Co de Phone Number [facility] * DIFFERENTIAL (01/22/2014 10:04 EDT) [...] & PF 4 ORDERABLES Performing Organization Address City/[facility] Co de Phone Number [facility] [address] [place] [address] * (ABNORMAL) HEMAGRAM (01/22/2014 10:04 EDT) WBC 4.31 4.0 - 10.4 K/cmm [facility] RBC 2.91(L) 4.36 - 5.78 M/cmm [facility] Hemoglobin 8.2(L) 13.8 - 17.3 gm/dl [facility] HCT 25.1(L) 39.5 - 50.2 % [facility] MCV 86 81 - 95 fl [facility] MCH 28.3 27.6 - 33.0 pg [facility] MCHC 32.7(L) 32.8 - 36.4 gm/dl [facility] PLT 116(L) 141 - 320 K/cmm [facility] RDW-CV 17.9(H) 11.8 - 14.1 % [facility] Comment:1+ Anisocytosis 01/22/2014 10:0 4 EDT 01/22/2014 10:13 EDT Kalani Parsons MD HEMATOLOGY & PF 4 ORDERABLES [facility] [address] [place] [address] * (ABNORMAL) COMPREHENSIVE METABOLIC PANEL (CMP) (01/22/2014 10:04 EDT) Potassium 4.8 3.5 - 5.0 mEq/L [facility] Sodium 140 136 - 145 mEq/L [facility] Chloride 108 96 - 110 mEq/L [facility] CO2 23(L) 24 - 32 mEq/L [facility] Total Alkaline Phosphatase 80 38 - 126 U/L [facility] Bilirubin, Total 0.7 <1.4 mg/dl [place] [facility] AST 53(H) 15 - 46 U/L [facility] ALT 54 21 - 72 U/L [facility] Albumin 3.3(L) 3.4 - 4.9 g/dl [facility] Total Protein 6.5 6.5 - 8.3 g/dl [facility] Creatinine 0.80 0.66 - 1.25 mg/dl [facility] GFR, Calculated >60 >60 ml/min/1.7 3m2 [facility] BUN 31(H) 10 - 26 mg/dl [facility] Calcium 8.7 8.5 - 10.5 mg/dl [facility] Calculated Calcium 9.8 8.5 - 10.5 mg/dl [facility] Glucose, Serum 213(H) 70 - 100 mg/dl [facility] Fasting? Unknown [facility] Blood specimen (specimen) 01/22/2014 10:04 EDT 01/22/2014 10:13 EDT Kalani Parsons MD CHEMISTRY & BLO OD GAS ORDERABLES Performing Organization Address [facility] Co de Phone Number [facility] [address] [place] [address] * (ABNORMAL) PTT (01/22/2014 10:04 EDT) PTT 25(L) 26 - 37 secs [facility] Comment:Therapeutic Heparin range: 65-100 seconds Blood specimen (specimen) 01/22/2014 10:04 EDT 01/22/2014 10:13 EDT Kalani Parsons MD HEMATOLOGY & PF 4 ORDERABLES Performing Organization Address [facility] de Phone Number [facility] [address] [place] [address] * (ABNORMAL) PROTIME (01/22/2014 10:04 EDT) Pro Time 12.5(H) 9.5 - 12.3 secs [facility] I.N.R. 1.2(H) 0.9 - 1.1 Ratio [facility] Comment: Moderate Intensity Coumadin INR = 2.0-3.0 Adjustments in anticoagulant therapy dose should be based upon the INR and NOT the Pro Time. Blood specimen (specimen) 01/22/2014 10:04 EDT 01/22/2014 10:13 EDT Kalani Parsons MD HEMATOLOGY & PF 4 ORDERABLES Performing Organization Address [facility] de Phone Number [facility] [address] [place] [address] documented in this encounter Visit Diagnoses Diagnosis [...] 0848 (Given - Provider: Saniya Andrade, RN) folic acid (FOLVITE) tablet 1 mg [...] Salas RN) 0848 (Given - Provider: Saniya Andrade, MELY) pantoprazole (PROTONIX) injection 40 mg (CANCELED) 40 [...] CONTINUOUS, Starting on 01/26/14 at 1815, Until 01/28/14 at 1313, Routine 0727 (New Bag - Provider: Yasmin Velez RN)0728 (Rate Documented - Provider: Kellie Driver RN)1217 (Rate Documented - Provider: Harris Gold RN)1955 (New Bag - Provider: Kellie Driver RN) 0644 (New Bag - Provider: Seema Rico RN)0756 (Rate Documented - Provider: Kellie Burger, RN) PRN Medication Order 01/27/2014 01/28/2014 01/29/2014 [...] 01/10 documented in this encounter Care Teams Investigator Claims Relationship Specialty Start Date End Date Kamala Rosado MD [address] [address] PCP - General 10/05/13 10/19/15 documented as of this encounter
--- OUTSIDE RECORDS SUMMARY | 2024-01-17 15:39 | XMS_ITS | Encounter Summary ---
Author Organization [facility] Address [address] [place] [address] Care Team Providers Care Sales And Service Officer Name Role Phone Kamala Rosado MD Primary Care Provider [phone] Encounter Details Date Type Department Care Team (Latest Contact Info) Description 01/23/2014 Orders Only [facility] Gastroenterology - [place] [address] [place] [address] Eden Toscano RN GI (gastrointestinal bleed) (Primary [...] Visit [facility] General Surgery - [address] [phone] Bon Gutierrez MD 111 [facility], [address] [place] [phone] 09/10/2024 10:00 EDT Appointment Shaina Bergeron [address] [address] Scheduled Orders Name Type Priority Associated Diagnoses Orde r Schedule CAPSULE ENDOSCOPY GI Routine GI (gastrointestinal bleed) Ordered: 01/23/2014 documented as of this encounter Visit Diagnoses Diagnosis GI (gastrointestinal bleed)- Primary Hemorrhage of gastrointestinal tract, unspecified documented in this encounter Care Teams Sales And Service Officer Relationship Specialty Start Date End Date Kamala Rosado MD [address] [address] PCP - General 10/05/13 10/19/15 documented as of this encounter
--- OUTSIDE RECORDS SUMMARY | 2024-01-17 15:39 | XMS_ITS | Encounter Summary ---
Author Organization [facility] Address [address] [place] [address] Care Team Providers Care Duralumin Mechanic Name Role Phone Kamala Rosado MD Primary Care Provider [phone] Reason for Visit * Reason Comments Follow-up 1 year, pt says he h ad a TIPS procedure Jan 28 Encounter Details Date Type Department Care Team (Late st Contact Info) Description 03/15/2014 13:00 EST Office Visit [facility] Gastroenterology - [address] [address] Brody Duran MD PhD 111 [facility], [address] [place] [address] Chronic hepatitis C without mention [...] Duran MD - 03/15/2014 1558 EST [facility] GASTRO[facility]OLOGY AND HEPATOLOGY PROGRESS / FOLLOWUP NOTE - 03/15/2014 Kamala Rosado MD [address], [facility] [address] [place] [address] Rosado: This is to let [...] through our interventional radiologists here at the [facility]. I am concerned about the possible IPMN, [...] - Brody Duran MD,PhD mn Dictation ID: [id number] cc: Kamala Rosado MD, [address] [place] [address], [place] [address] * Brody Duran MD - 03/15/2014 1341 EST This office note has been dictated. documented in this encounter Plan of Treatment Upcoming Encounters Date Type Department Care Team (Late st Contact Info) Description 01/23/2024 10:00 EDT Office Visit [facility] General Surgery - [address] [phone] Bon Gutierrez MD [address] [place] [address], [address] [place] [phone] 09/10/2024 10:00 EDT Appointment Shaina Mejia [address] [place] [phone] documented as of this encounter Visit Diagnoses [...] 04/30/2014 added in this encounter Care Teams Duralumin Mechanic Relationship Specialty Start Date End Date Kamala Rosado MD NPI: [id number] [place] [address] PCP - General 10/05/13 10/19/15 documented as of this encounter
--- OUTSIDE RECORDS SUMMARY | 2024-01-17 15:39 | XMS_ITS | Encounter Summary ---
Author Organization [facility] Address [address] [place] [address] Care Team Providers Care Gravel Wheeler Name Role Phone Kamala Rosado MD Primary Care Provider [phone] Unknown, Provider Primary Care Provider [phone] Sari Salgado MD Primary Care Provider [phone] Unknown, Provider Primary Care Provider [phone] Elissa AlejoC Primary Care Provider Laurie Wiggins MD Primary Care Provider [phone] Katia BlancoP Primary Care Provider [phone] George Lou RPA Primary Care Provider [phone] Reason for Visit * Reason Onset Date Comments Hepatitis C 05/01/2014 waiting to hear from nurse regarding tea Encounter Details Date Type Department Care Team (Late st Contact Info) Description 05/01/[address] [facility] Gastroenterology - [facility] [address] [place] [address] Brody Duran MD PhD 111 [facility], [address] [place] [address] Hepatitis C (waiting to hear [...] [facility] General Surgery - [address] [address] Bon Gutierrez MD 111 [facility], [address] [place] [phone] 09/10/2024 10:00 EDT Appointment Shaina Bergeron [place] [address] [place] [address] documented as of this encounter Visit Diagnoses Not on filedocumented in this encounter Care Teams Gravel Wheeler Relationship Specialty Start Date End Date Kamala Rosado MD [address] [address] PCP - General 10/05/13 10/19/15 Unknown, Provider, PCP - General 10/20/15 10/20/15 Sari Salgado MD PCP - General 10/21/15 11/07/16 Unknown, Kristy, PCP - General 11/08/16 11/08/16 Elissa Alejo PA-C [address] [place] [address] [place] [phone] PCP - General 11/09/16 05/07/18 Laurie Wiggins MD [address] [email or web address] [address] [place] [phone] PCP - General 05/08/18 03/25/19 Katia Blnaco FNP [address] [place], [place] [address] PCP - General 03/26/19 09/20/22 George Lou RPA [address] [facility] 1 [place], [place] [phone] PCP - General Family Medicine - Primary Care 09/21/22 documented as of this encounter
--- OUTSIDE RECORDS SUMMARY | 2024-01-17 15:39 | XMS_ITS | Encounter Summary ---
Author Organization [facility] Address [address] [place] [address] Care Team Providers Care Meterman Name Role Phone Kamala Rosado MD Primary Care Provider [phone] Reason for Visit * Reason Comments Follow-up Encounter Details Date Type Department Care Team (Late st Contact Info) Description 04/30/2014 9:30 EST Office Visit [facility] Interventional Radiology - [address] [id number] Guicho Rosales MD [address] [place] [address] Level 1 [place] [address] Cirrhosis (CMS-HCC) (HCC-CMS) (Primary Dx) [...] MD Medication Sig Dispense Refill ??? GLUC/PRANAV-MSM#2/C/D3/MAHESH/BORN ([id number] WITH VIT D ORAL) Take 1 Tab [...] 1 Tab by mouth daily. - GLUC/PRANAV-MSM#2/C/D3/MAHESH/BORN ([id number] WITH VIT D ORAL); Take 1 Tab [...] 01/23/2024 10:00 EDT Office Visit [facility] General Surgery - [facility] [address] [place], [place] [address] Bon Gutierrez MD 111 [facility], [facility], Level [address] [place] [address] 09/10/2024 10:00 EDT Appointment Shaina Bergeron Ultrasound [address] [place], [place] [phone] documented as of this encounter Procedures Procedure [...] History/Comments: 571.5-Cirrhosis of liver without mention of ahudqxq-NPP-3-CM; TIPS 01/28/14 Comparison: 04/30/2014. Findings: An ultrasound [...] History/Comments: 571.5-Cirrhosis of liver without mention of dpfqhoi-KLQ-3-CM; TIPS 01/28/14 Comparison: 04/30/2014. Findings: An ultrasound [...] Refills Start Date End Date GLUC/PRANAV-MSM#2/C/D3/MAHESH /BORN ([id number] WITH VIT D ORAL) Take 1 Tab by mouth 2 times daily. 11/12/2014 PV W-O ROCK/FERROUS FUMARATE/FA (M-VIT ORAL) Take 1 Tab by mouth daily. 11/12/2014 added in this encounter Care Teams Meterman Relationship Specialty Start Date End Date Kamala Rosado MD [address] [address] PCP - General 10/05/13 10/19/15 documented as of this encounter
--- OUTSIDE RECORDS SUMMARY | 2024-01-17 15:39 | XMS_ITS | Encounter Summary ---
Author Organization [facility] Address [address] [place] [address] Care Team Providers Care Hotel And Dining Room Cashier Name Role Phone Kamala Rosado MD Primary Care Provider [phone] Reason for Referral * Radiology Services (Routine) - Closed Specialty Diagnoses / Procedures Referred By [facility] Referred To Contact Diagnoses Hepatitis C Cirrhosis (HCC-CMS) Portal hypertension (HCC-CMS) Esophageal varices (HCC-CMS) Portal hypertensive gastropathy (HCC-CMS) S/P TIPS (transjugular intrahepatic portosystemic shunt) Procedures RAD US LIVER WITH DOPPLER Guicho Rosales MD 111 [facility] 1 [place] [address] Referral ID Status Reason Start Date Expiration Date Visits Re quested Visits Authorized [id number] Closed 01/28/2014 1 1 Encounter Details Date Type Department Care Team (Late st Contact Info) Description 01/28/2014 Orders Only [facility] Interventional Radiology - [facility] [address] [place] [address] Zac Rollins MD [address] [place] [phone] Hepatitis C (Primary Dx); Cirrhosis (CMS-HCC) [...] Info) Description 01/23/2024 10:00 EDT Office Visit [facility] General Surgery - [address] [address] Bon Gutierrez MD [address] [place] [address], [address] [place] [address] 09/10/2024 10:00 EDT Appointment Shaina Bergeron Ultrasound [address] [place] [address] documented as of this encounter Procedures [...] Symptoms/Comments: ??070.70-Unspecified viral hepatitis C without hepatic kqrm-TXF-8-CM 571.5-Cirrhosis of liver without mention of vfzqtui-ZKX-3-CM; 58M with cirrhosis, hepatitis, GI bleeding. S/P [...] Symptoms/Comments: 070.70-Unspecified viral hepatitis C without hepatic qblx-EQM-1-CM 571.5-Cirrhosis of liver without mention of eglgwbw-DOE-6-CM; 58M with cirrhosis, hepatitis, GI bleeding. S/P [...] status documented in this encounter Care Teams Hotel And Dining Room Cashier Relationship Specialty Start Date End Date Kamala Rosado MD [address] [address] PCP - General 10/05/13 10/19/15 documented as of this encounter
--- OUTSIDE RECORDS SUMMARY | 2024-01-17 15:39 | XMS_ITS | Encounter Summary ---
Author Organization [facility] Address [address] [place] [address] Care Team Providers Care Parish Nurse Name Role Phone Kamala Rosado MD Primary Care Provider [phone] Reason for Visit * Reason Comments Hemorrhoids Pt states for a coup le of year with recently worsening symptoms Encounter Details Date Type Department Care Team (Late st Contact Info) Description 05/10/2014 15:00 EST Office Visit [facility] General Surgery - [address] [address] Man Haile MD [address] [place] [address], Level 5 [place] [address] Rectal bleeding (Primary Dx) Social [...] Haile MD - 05/11/2014 0141 EST [facility] GENERAL SURGERY CONSULTATION - 05/10/2014 HISTORY OF [...] Man Haile MD, FACS kn Dictation ID: [id number] cc: Kamala Rosado MD, [address], [facility] [address] [address] Brody Duran MD,PhD, [facility] - Gastroenterology [address] [place] [address] documented in this encounter Plan of Treatment Upcoming Encounters Date Type Department Care Team (Late st Contact Info) Description 01/23/2024 10:00 EDT Office Visit [facility] General Surgery - [address] [address] Bon Gutierrez MD [address] [place] [address], [address] [place] [address] 09/10/2024 10:00 EDT Appointment Shaina Bergeron Ultrasound [address] [place] [address] documented as of this encounter Visit Diagnoses Diagnosis Rectal bleeding- Primary Hemorrhage of rectum and anus documented in this encounter Care Teams Parish Nurse Relationship Specialty Start Date End Date Kamala Rosado MD [address] [address] PCP - General 10/05/13 10/19/15 documented as of this encounter
--- OUTSIDE RECORDS SUMMARY | 2024-01-17 15:39 | XMS_ITS | Encounter Summary ---
Author Organization [facility] Address [address] [place] [address] Care Team Providers Care Upholstery Bundler Name Role Phone Kamala Rosado MD Primary Care Provider [phone] Unknown, Provider Primary Care Provider [phone] Sari Salgado MD Primary Care Provider [phone] Unknown, Provider Primary Care Provider [phone] Elissa Alejo PA-C Primary Care Provider Laurie Wiggins MD Primary Care Provider [phone] Katia Blanco Primary Care Provider [phone] Encounter Details Date Type Department Care Team (Late st Contact Info) Description 05/15/2014 Orders Only [facility] Gastroenterology - [place] [address] [place], [place] [id number] [place] Social History Tobacco Use [...] Description 01/23/2024 10:00 EDT Office Visit [facility] General Surgery - [address] [address] Bon Gutierrez MD [address] [facility], [address] [place] [phone] 09/10/2024 10:00 EDT Appointment Shaina Bergeron [address] [phone] documented as of this encounter Visit Diagnoses Not on filedocumented in this encounter Care Teams Upholstery Bundler Relationship Specialty Start Date End Date Kamala Rosado MD [address] [address] PCP - General 10/05/13 10/19/15 Unknown, MD Kristy PCP - General 10/20/15 10/20/15 Sari Salgado MD PCP - General 10/21/15 11/07/16 Unknown, Provider, PCP - General 11/08/16 11/08/16 Elissa Alejo, PA-C [address] [facility] [address] [phone] PCP - General 11/09/16 05/07/18 Laurie Wiggins MD [address] [place] [address] [phone] PCP - General 05/08/18 03/25/19 Katia Blanco FNP [address] [place] [address] PCP - General 03/26/19 09/20/22 documented as of this encounter
--- OUTSIDE RECORDS SUMMARY | 2024-01-17 15:39 | XMS_ITS | Encounter Summary ---
Author Organization [facility] Address [address] [place] [address] Care Team Providers Care Outreach And Education Social Worker Name Role Phone Kamala Rosado MD Primary Care Provider [phone] Encounter Details Date Type Department Care Team (Late st Contact Info) Description 04/30/2014 7:32 EST - 04/30/2014 23:59 EST Hospital Encounter [address] [address] Guicho Rosales MD [address] [place] [address] [address] [place] [phone] Discharge Disposition: Auto Discharge Social History Tobacco [...] Refills Start Date End Date GLUC/PRANAV-MSM#2/C/D3/MAHESH /BORN (TAMKQPEG-NVRKXV-ZFL WITH VIT D ORAL) Take 1 Tab [...] Office Visit [facility] General Surgery - [facility] [address] [place], [place] [address] Bon Gutierrez MD 111 [facility], [address] [place] [phone] 09/10/2024 10:00 EDT Appointment Shaina Bergeron [address] [place], [place] [address]386 documented as of this encounter Visit Diagnoses Not on filedocumented in this encounter Care Teams Outreach And Education Social Worker Relationship Specialty Start Date End Date Kamala Rosado MD [address] [address] PCP - General 10/05/13 10/19/15 documented as of this encounter
--- OUTSIDE RECORDS SUMMARY | 2024-01-17 15:39 | XMS_ITS | Encounter Summary ---
Author Organization [facility] Address [address] [place] [address] Care Team Providers Care Breakfast Bar Attendant Name Role Phone Kamala Rosado MD Primary Care Provider [phone] Encounter Details Date Type Department Care Team (Latest Contact Info) Description 05/13/2014 Orders Only [facility] Gastroenterology - [facility] [address] [place] [address] Deedee Chairez dermatology procedural physician hepatitis C without mention of hepatic coma [...] [facility] General Surgery - [facility] [address] [place], [place] [address] Bon Gutierrez MD 111 [facility], [address] [place] [phone] 09/10/2024 10:00 EDT Appointment Shaina Bergeron Jackie [address] [place] [phone] documented as of this encounter Results * HCV RNA DETECT QUANT (05/17/2014 11:43 EST) HCV RNA Detect Quant 348,635 IU/mL 05/20/2014 15:05 EST [facility] Comment: Reference Range: ??Undetected The quantification range of this assay is 15 IU/mL to 100,000,000 IU/mL. Testing was performed by the [employer]Mili TaqMan HCV v2.0 ([employer] Blood specimen (specimen) BLOOD SPECIMEN / Unknown 05/17/2014 11:43 EST 05/17/2014 12:16 EST Brody Duran MD PhD CHEMISTRY & BLO OD GAS ORDERABLES [facility] [address] [place] [address] documented in this encounter Visit Diagnoses Diagnosis Chronic hepatitis C without mention of hepatic coma- Primary Cirrhosis of liver without mention of alcohol documented in this encounter Care Teams Breakfast Bar Attendant Relationship Specialty Start Date End Date Kamala Rosado MD [address] [address] PCP - General 10/05/13 10/19/15 documented as of this encounter
--- OUTSIDE RECORDS SUMMARY | 2024-01-17 15:39 | XMS_ITS | Encounter Summary ---
Author Organization [facility] Address [address] [place] [address] Care Team Providers Care Medical Orderly Name Role Phone Kamaal Rosado MD Primary Care Provider [phone] Reason for Visit * Reason Onset Date Comments Other 01/24/2014 inpatient capsul e endoscopy Encounter Details Date Type Department Care Team (Late st Contact Info) Description 01/24/2014 Telephone [facility] [place] [address] Deedee Chairez RN Other (inpatient capsule endoscopy) [...] without difficulty. Plan: Capsule Endoscopy performed by [facility] Department of Gastroeneterology; per protocol. In accordance [...] Info) Description 01/23/2024 10:00 EDT Office Visit [facility] General Surgery - [address] [phone] Bon Gutierrez MD [address] [place] [address], [address] [place] [phone] 09/10/2024 10:00 EDT Appointment Shaina Bergeron [address] [phone] documented as of this encounter Visit Diagnoses Not on filedocumented in this encounter Care Teams Medical Orderly Relationship Specialty Start Date End Date Kamala Rosado MD [address] [address] PCP - General 10/05/13 10/19/15 documented as of this encounter
--- OUTSIDE RECORDS SUMMARY | 2024-01-17 15:39 | XMS_ITS | Encounter Summary ---
Author Organization [facility] Address [address] [place] [address] Care Team Providers Care Charge Entry Clerk Name Role Phone Kamala Rosado MD Primary Care Provider [phone] Reason for Visit * Reason Onset Date Comments Hospital Discharge Follow Up 01/14/2014 Encounter Details Date Type Department Care Team (Late st Contact Info) Description 01/14/2014 Telephone [facility] [address] [place] [id number] [facility] Dis[facility] Follow Up Social [...] early in Feb. [facility] [phone] 01/14/2014 documented in this encounter Plan of Treatment Upcoming Encounters Date Type Department Care Team (Late st Contact Info) Description 01/23/2024 10:00 EDT Office Visit [facility] General Surgery - [address] [phone] Bon Gutierrez MD 111 [facility], [address] [place] [phone] 09/10/2024 10:00 EDT Appointment Shaina Bergeron [address] [place], [place] [address] documented as of this encounter Visit Diagnoses Not on filedocumented in this encounter Care Teams Charge Entry Clerk Relationship Specialty Start Date End Date Kamala Rosado MD [address] [address] PCP - General 10/05/13 10/19/15 documented as of this encounter
--- OUTSIDE RECORDS SUMMARY | 2024-01-17 15:40 | XMS_ITS | Encounter Summary ---
Author Organization [facility] Address [address] [place] [address] Care Team Providers Care Products Mechanical Design Engineer Name Role Phone Barbra Vaughn MD Primary Care Provider [phone] Reason for Referral * (Routine/Next Available) - Closed Specialty Diagnoses / Procedures Referred By Contac t Referred To Contact Kait Perkins MD [address] [place] [address] Referral ID Status Reason Start Date Expiration Date V isits Requested Visits Authorized [id number] Closed Specialty Services Required 06/16/2013 1 1 Comments Please call for an appointment with your PCP within 7 days * (Routine/Next Available) - Closed Specialty Diagnoses / Procedures [facility]erred To Contact Kait Perkins MD [address] [place] [address] Referral ID Status Reason Start Date Expiration Date V isits Requested Visits Authorized [id number] Closed Specialty Services Required 06/16/2013 1 1 Reason for Visit * Reason Comments Rectal Bleeding [place]. Pt with rectal bleeding since 0400. Pt with hx of the same, admitted to [facility] in nov for the same with inconclusive workup. Pt in NAD. Skin warm adn dry. Resp unlabored. pt Ao. Encounter Details Date Type Department Care Team (Late st Contact Info) Description 06/15/2013 1:55 EST - 06/16/2013 14:19 EST Hospital Encounter [facility] Hematology & Oncology Unit [address] [place] [address] Torres Allen MD Walsh, Cary Morris MD 111 [facility], [facility], Level 1 [place] [address] Lester Kelly MD [address] [place] [address] Janie Mcgraw MD [address] [place] [phone] GI bleed (Primary Dx); Chronic hepatitis [...] doctor, Barbra Vaughn MD, in one week ([phone]) Future Appointments Date Time Provider Department Center [...] are the prescriptions that you need to nut picker. You may get the following medications from [...] Dispo: upon clinical improvement Consults: Raquel Rivera-MSIV #[id number] * Nadeen Scott - 06/15/2013 1404 EST Brief Case Management Assessment & Initial [...] BC/BS and states assist with meds.He uses [facility] in [place] Case Management Actions (completed and planned): No needs identified at present but will monitor. [place] #[id number] * Janie Mcgraw MD - 06/15/2013 7488 EST Internal Medicine Daily Progress Note Admit [...] HGB stable Kait Perkins M.D. M.P.H PGY-2, #[id number] Attestation: I saw and examined the patient [...] 2001, esophageal varices followed byDr. Duran at [facility], CKD, and chronic back pain who presents [...] November of 2012, was worked up at [facility] but no source of bleed was revealed. Workup at that time included and upper and lower endoscopy and capsule endoscopy. He presented initially to outside hospital where an EKG was done revealingnormal sinus rhythm. 3 L of normal saline were given bolus, in addition to Tylenol 650 mg, protonixto IV 40 mg and ceftriaxone 1 g. The patient was transferred to [facility] for further management. His hemoglobin at the outside hospital was 10.6. AST, ALT, Alk phos and total bilirubin were within normal limits. His blood pressures range from 107 to 115 systolic. Now at [facility] ED, patient stating that he continues to [...] Patient is hemodynamically stable [facility]. Plan: UGIB: Given history of [...] HGB stable Adonis Daley MD--PGY2 Pager # [phone] 06/15/2013 4:55 Attestation: I saw and examined [...] documented in this encounter Procedure Notes * AUTOMOBILE MECHANIC APPRENTICE, SCAN 2 - 06/16/2013 0039 ESTAssociated Order(s): PROCEDURE REPORTS - SCANNED * Rubio Fischer MD - 06/15/2013 8016 EST Brief Procedure Note EGD performed in [...] screening Torres Jennings MD Gastroenterology and Hepatology #[id number] Attestation statement: I saw and examined the [...] with Dr. Fischer. Torres Jennings MD Pager #[phone] Gastroenterology & Hepatology Fellow 06/15/2013 13:29 Attestation statement: I saw and examined the patient with the resident/fellow. I agree with the findings and plan of care documented in the resident's/fellow's note. 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 He had recent work-up for GI bleeding last year at [facility] including EGD, colonoscopy, and VCE which was [...] Rectal Bleeding Pt to the ED from [facility]. Pt with rectal bleeding since 0. Pt with hx of the same, admitted to [facility] in nov for the same with inconclusive [...] He has a normal mood and affect. DC ACUTE GI BLOOD LOSS Final result not shown here.: Radiology orders: DC ACUTE GI BLOOD LOSS Imaging Results DC ACUTE GI BLOOD LOSS (Final result) Result time: 06/15/13 09:42:24 Final result Narrative: Technique: DC ACUTE GI BLOOD LOSS 06/15/2013 1:44 AM [...] Preliminary result Narrative: PRELIMINARY RESIDENT REPORT Technique: DC ACUTE GI BLOOD LOSS 06/15/2013 1:44 AM [...] Preliminary result Narrative: PRELIMINARY RESIDENT REPORT Technique: DC ACUTE GI BLOOD LOSS 06/15/2013 1:44 AM [...] Report [facility]bu Tap[facility] will to the floor when scan complete. * Hank Kapadia RN - 06/15/2013 0012 EST Pt reasseessed and in NAD. Skin warm and dry. Resp unlabored. Pt AO. Resident at the bedside. Pt upto the bedside commode independently. Pt to [facility] with tech. * Hank Kapadia RN - 06/14/2013 2248 EST Chief Complaint Patient presents with ??? Rectal Bleeding Pt to the ED from [facility]. Pt with rectal bleeding since 399. Pt with hx of the same, admitted to [facility] in nov for the same with inconclusive [...] TCALL: ALMA CARBALLO 53 PT XFR FROM [facility]. CC: RECTAL BLEED SINCE 0900. PREVIOUS HISTORY OFSIMILAR WITH NEG. WORKUP AT [facility]. NOW WORKING WITH [facility]. RARE BLOOD TYPE. H/H 10.6 / 37 [...] Description 01/23/2024 10:00 EDT Office Visit [facility] General Surgery - [address] [id number] Bon Gutierrez MD 111 [facility], [address] 5 [place] [address] 09/10/2024 10:00 EDT Appointment Shaina Mejia [address] [place] [phone] Pending Results Name Type Priority Associated [...] EDT) 06/20/2013 13:4 7 EDT Scan 2 [facility] INFO SERVICE AN D SUPPORT & PHONE RESULT * (ABNORMAL) HEMAGRAM (06/16/2013 11:26 EST) WBC 2.91(L) 4.0 - 10.4 K/cmm [facility] RBC 3.45(L) 4.36 - 5.78 M/cmm [...] & PF4 ORD ERABLES Performing Organization Address [facility] Co de Phone Number [facility] [address] [place] [address] * INPATIENT ADD-ON (06/16/2013 8:45 EST) Tests to be added HPYS [facility] Number for problems [id number] [facility] Accession number [id number] [facility] 06/16/2013 8:45 EST 06/16/2013 8:46 EST Janie Mcgraw MD HEMATOLOGY & PF4 ORDERABLES Performing Organization Address [facility] Co de Phone Number [facility] [address] [place] [address] * HELICOBACTER PYLORI IGG ANTIBODY (06/16/2013 6:32 EST) H. Pylori IgG Ab Negative [facility] Comment:Assayed utilizing [employer] system. 06/16/2013 6:32 EST 06/16/2013 7:40 EST Lester Kelly MD CHEMISTRY & BLOOD GA S ORDERABLES Performing Organization Address [facility] Co de Phone Number [facility] [address] [place] [address] * (ABNORMAL) HEMAGRAM (06/16/2013 6:32 EST) WBC 2.23(L) 4.0 - 10.4 K/cmm [facility] RBC 3.04(L) 4.36 - 5.78 M/cmm [facility] Hemoglobin 8.5(L) 13.8 - 17.3 gm/dl [facility] HCT 25.3(L) 39.5 - 50.2 % [facility] MCV 83 81 - 95 fl [facility] MCH 28.0 27.6 - 33.0 pg [facility] MCHC 33.6 32.8 - 36.4 gm/dl [facility] PLT 77(L) 141 - 320 K/cmm [facility] RDW-CV 19.1(H) 11.8 - 14.1 % [facility] Blood specimen (specimen) 06/16/2013 6:32 EST 06/16/2013 7:41 EST Belle Montano MD HEMATOLOGY & PF4 ORD ERABLES [facility] [address] [place] [address] * CREATININE (06/16/2013 6:32 EST) Creatinine 0.84 0.66 - 1.25 mg/dl [facility] GFR, Calculated >60 >60 ml/min/1.7 3m2 [facility] Blood specimen (specimen) 06/16/2013 6:32 EST 06/16/2013 7:40 EST Adonis Daley MD CHEMISTRY & BLOOD GA S ORDERABLES Performing Organization Address City/[facility]/ZIP Co de Phone Number [facility] [address] [place] [address] * BUN (06/16/2013 6:32 EST) BUN 20 10 - 26 mg/dl [facility] Blood specimen (specimen) 06/16/2013 6:32 EST 06/16/2013 7:40 EST Adonis Daley MD CHEMISTRY & BLOOD GA S ORDERABLES Performing Organization Address [facility] Co de Phone Number [facility] [address] [place] [address] * (ABNORMAL) ELECTROLYTES (06/16/2013 6:32 EST) Sodium 138 136 - 145 mEq/L [facility] Potassium 3.5 3.5 - 5.0 mEq/L [facility] Chloride 112(H) 96 - 110 mEq/L [facility] CO2 23(L) 24 - 32 mEq/L [facility] Blood specimen (specimen) 06/16/2013 6:32 EST 06/16/2013 7:40 EST Adonis Daley MD CHEMISTRY & BLOOD GA S ORDERABLES Performing Organization Address [facility] de Phone Number [facility] [address] [place] [address] * PROCEDURE REPORTS - SCANNED (06/16/2013 0:39 EST) 06/16/2013 0:39 EST Narrative 06/16/2013 2:32 EST Procedure Note AUTOMOBILE MECHANIC APPRENTICE, SCAN 2 - 06/16/2013 0:39 EST Scan 2 [facility] PROCEDURE/MINOR TY GICAL ORDERABLES * (ABNORMAL) HEMAGRAM [...] HEMATOLOGY & PF4 ORDERABLES Performing Organization Address City/[facility] Co de Phone Number [facility] [address] [place] [address] * H. PYLORI BREATH TEST (06/15/2013 17:54 EST) H. pylori Breath Tst Negative Negative [facility] Comment: (Note) Result indicates the absence of current Helicobacter pylori infection. Performed by: [facility] Labs: [facility], [facility], [place] [address], Lab Dir: Richard Allan III, MD Specimen of unknown material (specimen) TOPOGRAPHY UNKNOWN / Unknown 06/15/2013 17:54 EST 06/15/2013 18:46 EST Kait Perkins MD GEN LAB UNIT COLLEC T ORDERABLES Performing Organization Address [facility] de Phone Number [facility] [address] [place] [address] * SMEAR REVIEW (06/15/2013 16:21 EST) Smear scan only: Slide was examined by a technologist to verify the WBC and/or platelet count. [facility] 06/15/2013 16:2 1 EST 06/15/2013 17:17 EST Lester Kelly MD HEMATOLOGY & PF4 ORD ERABLES Performing Organization Address [facility] Co de Phone Number [facility] [address] [place] [address] * (ABNORMAL) HEMAGRAM (06/15/2013 16:21 EST) WBC 3.05(L) 4.0 - 10.4 K/cmm [facility] RBC 2.97(L) 4.36 - 5.78 M/cmm [facility] Hemoglobin 8.2(L) 13.8 - 17.3 gm/dl [facility] HCT 24.7(L) 39.5 - 50.2 % [facility] MCV 83 81 - 95 fl [facility] MCH 27.6 27.6 - 33.0 pg [facility] MCHC 33.2 32.8 - 36.4 gm/dl [facility] PLT 83(L) 141 - 320 K/cmm [facility] RDW-CV 18.9(H) 11.8 - 14.1 % [facility] Blood specimen (specimen) 06/15/2013 16:21 EST 06/15/2013 17:17 EST Lester Kelly MD HEMATOLOGY & PF4 ORD ERABLES Performing Organization Address City/State/[facility] Co de Phone Number [facility] [address] [place] [address] * TRANSFUSE RED BLOOD CELLS (06/15/2013 13:22 EST) Blood specimen (specimen) Adonis Daley MD NURSING TREATMENT - BLOOD ADMINISTRATION * TRANSFUSE RED BLOOD CELLS (06/15/2013 8:57 EST) Blood specimen (specimen) Adonis Daley MD NURSING TREATMENT - BLOOD ADMINISTRATION * PREPARE RED BLOOD CELLS (06/15/2013 5:30 EST) [facility] Signature Product Code E0382 -3 RED BLOOD CELLS, Leukocytes Reduced [facility] Donor Number [id number] [facility]OD [facility] Unit ABO A [facility] Rh POS [facility] Cross Match Interp Compatible [facility] Unit Status Transfuse [facility] 06/15/2013 5:30 EST Provider Unknown BLOOD BANK ORDERABLE S [facility] * PREPARE RED BLOOD CELLS (06/15/2013 5:30 EST) Product Code E0382 -3 RED BLOOD CELLS, Leukocytes Reduced [facility] Donor Number [id number] [facility] Unit ABO A [facility] Unit Rh POS [facility] Cross Match Interp Compatible [facility] Unit Status Transfuse [facility] Blood specimen (specimen) 06/15/2013 5:30 EST Adonis Daley MD BLOOD BANK ORDERABLE S Performing Organization Address City/[facility]/ZIP Co de Phone Number [facility] [...] PF4 ORD ERABLES [facility] [address] [place] [address] * (ABNORMAL) HEMAGRAM (06/15/2013 2:37 EST) WBC 5.28 4.0 - 10.4 K/cmm [facility] RBC 2.78(L) 4.36 - 5.78 M/cmm [facility] Hemoglobin 7.7(L) 13.8 - 17.3 gm/dl [facility] HCT 23.3(L) 39.5 - 50.2 % [facility] MCV 84 81 - 95 fl [facility] MCH 27.9 27.6 - 33.0 pg [facility] MCHC 33.2 32.8 - 36.4 gm/dl [facility] PLT 103(L) 141 - 320 K/cmm [facility] RDW-CV 18.1(H) 11.8 - 14.1 % [facility] 06/15/2013 2:37 EST 06/15/2013 2:45 EST Adonis Daley MD HEMATOLOGY & PF4 ORD ERABLES Performing Organization Address City/[facility] Co de Phone Number [facility] [address] [place] [address] * (ABNORMAL) BUN (06/15/2013 2:37 EST) Pathologist [facility] BUN 33(H) 10 - 26 mg/dl [facility] Blood specimen (specimen) 06/15/2013 2:37 EST 06/15/2013 2:45 EST Adonis Daley MD CHEMISTRY & BLOOD GA S ORDERABLES Performing Organization Address [facility] Co de Phone Number [facility] [address] [place] [address] * CREATININE (06/15/2013 2:37 EST) Pathologist [facility] Creatinine 0.79 0.66 - 1.25 mg/dl [facility] GFR, Calculated >60 >60 ml/min/1.7 3m2 [facility] Blood specimen (specimen) 06/15/2013 2:37 EST 06/15/2013 2:45 EST Lester Kelly MD CHEMISTRY & BLOOD GA S ORDERABLES Performing Organization Address City/[facility]/ZIP Co de Phone Number [facility] [address] [place] [address] * (ABNORMAL) ELECTROLYTES (06/15/2013 2:37 EST) Sodium [...] BLOOD GA S ORDERABLES Performing Organization Address [facility] Co de Phone Number [facility] [address] [place] [address] * ED/WICC ADD-ON (06/15/2013 1:58 EST) Tests to be added PT, PTT [facility] Number for problems [id number] (ED) [facility] 06/15/2013 1:58 EST 06/15/2013 1:58 EST Lester Kelly MD HEMATOLOGY & PF4 ORD ERABLES Performing Organization Address City/[facility]/ZIP Co de Phone Number [facility] [address] [place] [address] * NM ACUTE GI BLOOD LOSS (06/15/2013 [...] agree with the findings. Torres Allen MD [facility] NM ORDERABLES * PTT (06/14/2013 22:45 EST) PTT 31 26 - 37 secs [facility] Comment:Therapeutic Heparin range: 65-100 seconds 06/14/2013 22:4 5 EST 06/14/2013 22:55 EST Torres Allen MD HEMATOLOGY & PF4 ORD ERABLES [facility] [address] [place] [address] * (ABNORMAL) PROTIME (06/14/2013 22:45 EST) Pro [...] & PF4 ORD ERABLES Performing Organization Address [facility] de Phone Number [facility] [address] [place] [address] * HOLD SST (06/14/2013 22:45 EST) Hold SST Hold for further testing. Specimen will be held for 5 days. MIKE DO Blood specimen (specimen) 06/14/2013 22:45 EST 06/14/2013 22:55 EST Torres Allen MD LAB INFO SERVICE AND SUPPORT & PHONE RESULT Performing Organization Address [facility] de Phone Number [facility] [address] [place] [address] * HOLD BLUE TOP (06/14/2013 22:45 EST) Hold Blue Top Sample for coagulation will be discarded after 4 hours MIKE DO Blood specimen (specimen) 06/14/2013 22:45 EST 06/14/2013 22:55 EST Torres Allen MD LAB INFO SERVICE AND SUPPORT & PHONE RESULT Performing Organization Address [facility] de Phone Number [facility] [address] [place] [address] * HOLD GREEN TOP (06/14/2013 22:45 EST) Hold Green Top Hold for further testing. Specimen will be held for 5 days. MIKE DO Blood specimen (specimen) 06/14/2013 22:45 EST 06/14/2013 22:55 EST Torres Allen MD LAB INFO SERVICE AND SUPPORT & PHONE RESULT Performing Organization Address [facility] Co de Phone Number [facility] [address] [place] [address] * (ABNORMAL) HEMAGRAM (06/14/2013 22:45 EST) WBC [...] & PF4 ORD ERABLES Performing Organization Address [facility] Co de Phone Number [facility] [address] [place] [address] * TYPE AND SCREEN (06/14/2013 22:45 EST) ABO A [facility] Rh Factor Positive [facility] Antibody Screen Negative [facility] Comment:sample expires 014 at 23:59. Blood specimen (specimen) 06/14/2013 22:45 EST Torres Allen MD BLOOD BANK TESTS Performing Organization Address [facility]/ZIP Co de Phone Number [facility] [...] at 0900, STAT 0944 (Given - Provider: Hector Adorno RN) 0840 (Given - Provider: Barbara [...] 11/2013 documented in this encounter Care Teams Products Mechanical Design Engineer Relationship Specialty Start Date End Date Barbra Vaughn MD [address] [place] [id number] PCP - General 02/27/13 10/04/13 documented as of this encounter
--- OUTSIDE RECORDS SUMMARY | 2024-01-17 15:40 | XMS_ITS | Encounter Summary ---
Author Organization [facility] Address [address] [place] [address] Care Team Providers Care Senior Sustainability Consultant Name Role Phone Barbra Vaughn MD Primary Care Provider [phone] Encounter Details Date Type Department Care Team (Late st Contact Info) Description 03/14/2013 Phlebotomy Only [address] [address] Partner, Outpatient Chronic hepatitis C without mention of [...] [facility] General Surgery [address] [phone] Bon Gutierrez MD 111 [facility], [address] [place] [phone] 09/10/2024 10:00 EDT Appointment Shaina Mejia [address] [place], [place] [phone] documented as of this encounter Procedures Procedure [...] OD GAS ORDERABLES [facility] [address] [place] [address] * HEPATITIS B SURFACE ANTIGEN (03/14/2013 14:34 EST) Hepatitis B Surface Ag Negative [facility] Comment:Reference Range: Neg ative Blood specimen (specimen) 03/14/2013 14:34 EST 03/14/2013 14:51 EST Brody Duran MD PhD CHEMISTRY & BLO OD GAS ORDERABLES Performing Organization Address [facility] Phone Number [facility] [address] [place] [address] * HEPATITIS B SURFACE ANTIBODY (03/14/2013 14:34 [...] BLO OD GAS ORDERABLES Performing Organization Address [facility] Phone Number [facility] [address] [place] [address] * HEPATITIS A TOTAL ANTIBODY (03/14/2013 14:34 EST) Hep A Antibody Negative [facility] Comment:Reference Range: Neg ative Blood specimen (specimen) 03/14/2013 14:34 EST 03/14/2013 14:51 EST Brody Duran MD PhD CHEMISTRY & BLO OD GAS ORDERABLES Performing Organization Address [facility] Phone Number [facility] [address] [place] [address] * PROTIME (03/14/2013 14:34 EST) Pro Time [...] PF 4 ORDERABLES [facility] [address] [place] [address] * (ABNORMAL) COMPREHENSIVE METABOLIC PANEL (CMP) (03/14/2013 [...] OD GAS ORDERABLES [facility] [address] [place] [address] documented in this encounter Visit Diagnoses Diagnosis Chronic hepatitis C without mention of hepatic coma Cirrhosis (HCC-CMS) Cirrhosis of liver without mention of alcohol documented in this encounter Care Teams Senior Sustainability Consultant Relationship Specialty Start Date End Date Barbra Vaughn MD [address] [place] [address] PCP - General 02/27/13 10/04/13 documented as of this encounter
--- OUTSIDE RECORDS SUMMARY | 2024-01-17 15:40 | XMS_ITS | Encounter Summary ---
Author Organization [facility] Address [address] [place] [address] Care Team Providers Care Order Planner Name Role Phone Barbra Vaughn MD Primary Care Provider [phone] Reason for Visit * Reason Onset Date Comments Other 06/27/2013 PCP would like t o speak with Dr. Duran about patient's follow-up care. Encounter Details Date Type Department Care Team (Late st Contact Info) Description 06/27/2013 Telephone [facility] Gastroenterology - [address] [id number] Brody Duran MD PhD [address] [place] [address] [address] [place] [address] Other (PCP would like to [...] 06/27/2013 0858 EDT Barbara @ [facility] was called back & given PAS # for to reach directly to discuss plan of care for this patient. documented in this encounter Plan of Treatment Upcoming Encounters Date Type Department Care Team (Late st Contact Info) Description 01/23/2024 10:00 EDT Office Visit [facility] General Surgery - [facility] [address] [place], [place] [address] Bon Gutierrez MD 111 [facility], [address] [place] [phone] 09/10/2024 10:00 EDT Appointment Shaina Mejia [address] [place], [place] [phone] documented as of this encounter Visit Diagnoses Not on filedocumented in this encounter Care Teams Order Planner Relationship Specialty Start Date End Date Barbra Vaughn MD [address] [facility] [address] [place] [address] PCP - General 02/27/13 10/04/13 documented as of this encounter
--- OUTSIDE RECORDS SUMMARY | 2024-01-17 15:40 | XMS_ITS | Encounter Summary ---
Author Organization [facility] Address [address] [place] [address] Care Team Providers Care Kinesiology Professor Name Role Phone Barbra Vaughn MD Primary Care Provider [phone] Encounter Details Date Type Department Care Team (Late st Contact Info) Description 07/10/2013 Phlebotomy Only [address] [address] [place]ator [place], Outpatient Cirrhosis of liver (CMS-HCC) (HCC-CMS); Chronic [...] Info) Description 01/23/2024 10:00 EDT Office Visit [facility] General Surgery [address] [address] Bon Gutierrez MD [address] [facility], Level [address] [place] [address] 09/10/2024 10:00 EDT Appointment Shaina Bergeron Ultrasound [address] [place] [address] documented as of this encounter Procedures Procedure [...] PF 4 ORDERABLES [facility] [address] [place] [address] * (ABNORMAL) HEMAGRAM (07/10/2013 16:51 EDT) WBC [...] PF 4 ORDERABLES [facility] [address] [place] [address] * (ABNORMAL) COMPREHENSIVE METABOLIC PANEL (CMP) (07/10/2013 16:51 EDT) Potassium 4.3 3.5 - 5.0 mEq/L [facility] Sodium 144 136 - 145 mEq/L [facility] Chloride 107 96 - 110 mEq/L [facility] CO2 25 24 - 32 mEq/L [facility] Total Alkaline Phosphatase 83 38 - 126 U/L [facility] Bilirubin, Total 0.8 <1.4 mg/dl [place] [facility] AST 41 15 - [...] OD GAS ORDERABLES [facility] [address] [place] [address] documented in this encounter Visit Diagnoses Diagnosis Cirrhosis of liver (HCC-CMS) Cirrhosis of liver without mention of alcohol Chronic hepatitis C without mention of hepatic coma documented in this encounter Care Teams Kinesiology Professor Relationship Specialty Start Date End Date Barbra Vaughn MD [address] [place] [address] PCP - General 02/27/13 10/04/13 documented as of this encounter
--- OUTSIDE RECORDS SUMMARY | 2024-01-17 15:40 | XMS_ITS | Encounter Summary ---
Author Organization [facility] Address [address] [place] [address] Care Team Providers Care Sample Box Maker Name Role Phone Kamala Rosado MD Primary Care Provider [phone] Encounter Details Date Type Department Care Team (Late st Contact Info) Description 12/11/2013 8:28 EDT - 12/11/2013 23:59 EDT Hospital Encounter [address] [address] Brody Duran MD PhD [address] [place] [address], [address] [place] [address] Discharge Disposition: Auto Discharge Social [...] Visit [facility] General Surgery - [address] [id number] Bon Gutierrez MD 111 [facility], [address] [place] [phone] 09/10/2024 10:00 EDT Appointment Shaina Mejia [address] [place] [address] documented as of this encounter Visit Diagnoses Not on filedocumented in this encounter Care Teams Sample Box Maker Relationship Specialty Start Date End Date Kamala Rosado MD [address] [address] PCP - General 10/05/13 10/19/15 documented as of this encounter
--- OUTSIDE RECORDS SUMMARY | 2024-01-17 15:40 | XMS_ITS | Encounter Summary ---
Author Organization [facility] Address [address] [place] [address] Care Team Providers Care Net Repairer Name Role Phone Barbra Vaughn MD Primary Care Provider Encounter Details Date Type Department Care Team (Latest Contact Info) Description 06/15/2013 13:30 EST - 06/15/2013 23:59 EST Hospital Encounter [facility] [place] [address] Discharge Disposition: Home or Self Care Social [...] Code Departure Means Destination Home or Self Skilled Nursing documented in this encounter Plan of Treatment Upcoming Encounters Date Type Department Care Team (Late st Contact Info) Description 01/23/2024 10:00 EDT Office Visit [facility] General Surgery - [facility] [address] [place], [place] [address] Bon Gutierrez MD 111 [facility], [address] [place] [address] 09/10/2024 10:00 EDT Appointment Shaina Bergeron [address] [address] documented as of this encounter Visit Diagnoses Not on filedocumented in this encounter Care Teams Net Repairer Relationship Specialty Start Date End Date Barbra Vaughn MD 31 [facility] [address] [place] [address] PCP - General 02/27/13 10/04/13 documented as of this encounter
--- OUTSIDE RECORDS SUMMARY | 2024-01-17 15:40 | XMS_ITS | Encounter Summary ---
Author Organization [facility] Address [address] [place] [address] Care Team Providers Care Environmental Inspector Name Role Phone Barbra Vaughn MD Primary Care Provider Reason for Referral * Radiology Services (Routine) - Closed Specialty Diagnoses / Procedures [facility] Referred To Contact Diagnoses Cirrhosis of liver (HCC-CMS) Chronic hepatitis C without mention of hepatic coma Procedures RAD US ABDOMEN ONE ORGAN/QUADRANT Brody Duran MD PhD [address] [place] [phone] Referral ID Status Reason Start Date Expiration Date Visits Re quested Visits Authorized [id number] Closed 07/10/2013 1 1 Reason for Visit * Reason Comments Cirrhosis and gi bleed, f/u Encounter Details Date Type Department Care Team (Late st Contact Info) Description 07/10/2013 16:00 EDT Office Visit [facility] Gastroenterology - [address] [address] Brody Duran MD PhD [address] [place] [phone] Cirrhosis of liver (CMS-HCC) (HCC-CMS) (Primary [...] FOLLOWUP NOTE - 07/10/2013 [place] [address] [place]: Thank you for asking [...] loss, which had been extensively evaluated at [facility], including upper endoscopy, colonoscopy and capsule endoscopy. The patient had recurrent hematochezia last month and was briefly hospitalized at [facility]. An upper endoscopy performed at that [...] - Brody Duran MD,PhD arianna Dictation ID: [id number] cc: Kamala [place] MD,[facility], [address] [place] [id number] * Brody Duran MD - 07/10/2013 1657 EDT This office note has been dictated. documented in this encounter Plan of Treatment Upcoming Encounters Date Type Department Care Team (Late st Contact Info) Description 01/23/2024 10:00 EDT Office Visit [facility] General Surgery - [facility] [address] [place], [place] [id number] Bon Gutierrez MD 111 [facility], [address] [place] [address] 09/10/2024 10:00 EDT Appointment Shaina Bergeron Ultrasound [address] [place] [address] documented as of this encounter [...] SYMPTOMS/COMMENTS: ??571.5-Cirrhosis of liver without mention of isinyeq-SCA-6-CM 070.54-Chronic hepatitis C without mention of hepatic keuc-SCU-3-CM; cirrhosis evaluate for tumor Comparison: June 18, [...] SYMPTOMS/COMMENTS: 571.5-Cirrhosis of liver without mention of gtfsyit-JSL-6-CM 070.54-Chronic hepatitis C without mention of hepatic awoh-SXR-8-CM; cirrhosis evaluate for tumor Comparison: June 18, [...] & PF 4 ORDERABLES Performing Organization Address [facility] Co de Phone Number [facility] [address] [place] [address] * (ABNORMAL) HEMAGRAM (07/10/2013 16:51 EDT) WBC [...] & PF 4 ORDERABLES Performing Organization Address City/[facility] Co de Phone Number [facility] [address] [place] [address] * (ABNORMAL) COMPREHENSIVE METABOLIC PANEL (CMP) (07/10/2013 [...] OD GAS ORDERABLES [facility] [address] [place] [address] documented in this encounter Visit Diagnoses Diagnosis Cirrhosis of liver (HCC-CMS)- Primary Cirrhosis of liver without mention of alcohol Chronic hepatitis C without mention of hepatic coma documented in this encounter Care Teams Environmental Inspector Relationship Specialty Start Date End Date Barbra Vaughn MD [address] [place] [address] PCP - General 02/27/13 10/04/13 documented as of this encounter
--- OUTSIDE RECORDS SUMMARY | 2024-01-17 15:40 | XMS_ITS | Encounter Summary ---
Author Organization [facility] Address [address] [place] [address] Care Team Providers Care Director Of Consumer Affairs Name Role Phone Barbra Vaughn MD Primary Care Provider [phone] Reason for Referral * Consult, Test and Treat (Routine/Next Available) - Closed Specialty Diagnoses / Procedures Referred By Contac t Referred To Contact Rehab Therapies Diagnoses Low back pain Scoliosis Lumbar radiculopathy Rosario Hutchison PA-C [address] [place] [address] Referral ID Status Reason Start Date Expiration Date V isits Requested Visits Authorized [id number] Closed Specialty Services Required 06/01/2013 1 1 Question Answer Reason for Request: AQUATIC THERAPY WITH TRANSITION TO LAND PT, LUMBAR STRETCHES, CORE STABILIZATION, POSTURAL LATTER-DAY * Radiology Services (Routine/Next Available) - Closed Specialty Diagnoses / Procedures Referred By Contac t Referred To Contact Diagnoses Scoliosis Procedures SCOLI 2 VIEW AP & LAT Rosario Hutchison PA-C [address] [place] [address] Referral ID Status Reason Start Date Expiration Date Visits Re quested Visits Authorized [id number] Closed 06/01/2013 1 1 * Radiology Services (Routine/Next Available) - Closed Specialty Diagnoses / Procedures Referred By Contac t Referred To Contact Diagnoses Low back pain Procedures L SPINE 2-3 VIEWS Rosario Hutchison PA-C [address] [place] [address] Referral ID Status Reason Start Date Expiration Date Visits Re quested Visits Authorized [id number] Closed 06/01/2013 1 1 Reason for Visit * Reason Comments Back Pain low Encounter Details Date Type Department Care Team (Latest Contact Info) Description 06/01/2013 12:45 EST Office Visit [facility] - [address] [place] [address] Rosario Hutchison PA-C Low back pain (Primary [...] the course [place]in [place], [place]. There were helpful at first, but then they stopped working. He was eventually referred to a spine surgeon in the [place] area who offered him more surgeries, though [...] helpful for them to do some postural alevism and some core stabilization exercises. We also [...] Info) Description 01/23/2024 10:00 EDT Office Visit [facility] General Surgery - [address] [phone] Bon Gutierrez MD 111 [facility], [address] [place] [phone] 09/10/2024 10:00 EDT Appointment Shaina Bergeron Ultrasound [address] [place], [place] [phone] Scheduled Referrals Name Type Priority Associated Diagnoses [...] 10/05/2013 added in this encounter Care Teams Director Of Consumer Affairs Relationship Specialty Start Date End Date Barbra Vaughn MD [address] [place] [address] PCP - General 02/27/13 10/04/13 documented as of this encounter
--- OUTSIDE RECORDS SUMMARY | 2024-01-17 15:40 | XMS_ITS | Encounter Summary ---
Author Organization [facility] Address [address] [place] [address] Care Team Providers Care Welfare Administrator Name Role Phone Barbra Vaughn MD Primary Care Provider [phone] Encounter Details Date Type Department Care Team (Late st Contact Info) Description 06/11/2013 Results Only Imaging [facility] Gastroenterology - [address] [address] Brody Duran MD PhD [address] [place] [phone] Social History Tobacco Use Types Packs/Day Years [...] [facility] General Surgery - [address] [address] Bon Gutierrez MD [address] [place] [phone] 09/10/2024 10:00 EDT Appointment Shaina Mejia [address] [place] [address] documented as of this encounter Procedures Procedure [...] 070.54-Chronic hepatitis C without mention of hepatic leul-PCR-6-CM 571.5-Cirrhosis of liver without mention of znjfdmt-PFR-0-CM; cirrhosis r/o HCC pager 01 Comparison: ??None [...] 070.54-Chronic hepatitis C without mention of hepatic vkiw-TZZ-0-CM 571.5-Cirrhosis of liver without mention of mtpoipb-FWC-4-CM; cirrhosis r/o HCC pager 01 Comparison: None [...] on filedocumented in this encounter Care Teams Welfare Administrator Relationship Specialty Start Date End Date Barbra Vaughn MD [address] [place] [address] [address] PCP - General 02/27/13 10/04/13 documented as of this encounter
--- OUTSIDE RECORDS SUMMARY | 2024-01-17 15:40 | XMS_ITS | Encounter Summary ---
Author Organization [facility] Address [address] [place] [address] Care Team Providers Care Nuclear Medicine Technologist Name Role Phone Kamala Rosado MD Primary Care Provider Reason for Referral * Consult (3 - 10 Business Days) - Closed Specialty Diagnoses / Procedures Referred By Contact Referred To Contact Gastroenterology / Gastroenterology and Hepatology Diagnoses 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 Portal hypertensive gastropathy (HCC-CMS) GI bleed Abdiaziz Cruz MD [address] [place] [address] [facility] Gi [address] [place] [address] Referral ID Status Reason Start Date Expiration Date V isits Requested Visits Authorized [id number] Closed Specialty Services Required 01/12/2014 1 1 Question Answer Reason for Request: f/u portal gastropathy GI bleed * Follow Up (3 - 10 Business Days) - Closed Specialty Diagnoses / Procedures Referred By [facility] t Referred To Contact Diagnoses 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 General Medicine Unit [address] [place] [address] Zac Morillo MD [address] [place] [address] Karrie Rose MD 111 [facility], Level 1 [place] [id number] Joe Do MD [address] [phone] GI bleed (Primary Dx); 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; Portal hypertensive gastropathy; Pancytopenia (CMS-HCC) (HCC-[facility]) Discharge Disposition: Home or Self Care Social [...] Procedure Component Value Units Date/Time Methylmalonic Acid [[id number]] Collected: 01/12/14916 Lab Status: In process Updated: 01/12/14924 Specimen Information: Blood Vitamin B12 [[id number]] Collected: 01/12/14916 Lab Status: In process Updated: 01/12/14924 Specimen Information: Blood Elevated Glucose [[id number]] Collected: 01/08/14935 Lab Status: In process Updated: [...] with [facility] (--) [address] [facility] [address] Follow-Up Appointments and Procedures Recommended to Patient: [...] Cruz MD Joshua Stopak, MD--PGY1 Pager # [phone] 01/12/2014 12:59 Joe Do MD (I spent [...] Consults: LA NENA Cruz MD--PGY1 Pager # [phone] 01/11/2014 10:15 Attending attestation: I have seen [...] medications. He gets his meds at [facility], thru their medication program but some of those prescribed for him are not available at reduced rates. He had a medication policy but could not continue to afford it. Provided patient with information on the [facility] Health Information Program to assist with his [...] Consults: GI Abdiaziz Cruz MD--PGY1 Pager # [phone] 01/10/2014 8:17 Attending attestation: I have seen [...] DME Provider: None Pharmacy: [facility] in [place], [place]. LIVING ARRANGEMENTS AND ACCESSIBILITY ISSUES: The patient lives in a one story house in [place], [place]. Are there any home access issues? [...] baseline. MEDICAL INSURANCE IN PLACE: Medicare and [facility] financial services for: 100% PAP for 6 [...] patient to discharge. Sherice Gray RN BSN [facility] #[id number] 01/09/2014 14:12 covering watch caser * Joe Do MD - 01/09/2014 1015 [...] Consults: GI Abdiaziz Cruz MD--PGY1 Pager # [phone] 01/09/2014 10:36 Attending attestation: I have seen [...] TIPS may be a consideration. Will contact [facility] [place] [place] to obtain records of his prior evaluation. [...] Patient Appropriate Candidate for Planned Sedation?: Yes Kam Alejandro MD 01/10/2014 7:51 * Joe Do [...] Consults: GI Abdiaziz Cruz MD--PGY1 Pager # [phone] 01/08/2014 20:06 Attending attestation: I have seen [...] & Physical Date: 01/08/2014 Time: 15:08 Location: [address] Planned Procedure: Gastroscopy Chief Complaint/Indications for [...] documented in this encounter Procedure Notes * DRUG WORKER, SCAN 2 - 01/11/2014 0042 EDTAssociated Order(s): [...] scanned media or procedure tab within PRISM. Kam Alejandro MD Gastroenterology and Hepatology Fellow #[id number] * DRUG WORKER, SCAN 2 - 01/09/2014 0039 EDTAssociated Order(s): [...] loss, which had been extensively evaluated at [facility], including upper endoscopy, colonoscopy and capsule endoscopy. [...] PRISM. Kam Alejandro MD Gastroenterology and Hepatology #[id number] Attestation statement: I saw and examined the [...] Alejandro MD GI and Hepatology Fellow Pager [phone] documented in this encounter ED Notes * [...] Asif Jha RN - 01/08/2014 1602 EDT [phone] Fang English. * Edwardo Bejarano RN - [...] 01/08/2014 1117 EDT alesia Bowers, cell phone [phone] * Uvaldo Quinn RN - 01/08/2014 1114 [...] found. * Chen Pham RN - 01/08/2014 3214 EDT Pt out of home medicines not taking, he has no money documented in this encounter Miscellaneous Notes * Plan of Care - Venecia Alamo RN - 01/12/2014 1622 EDT Problem: PAIN Goal: Patient???s Pain And [...] Pt resting in room. Continue to monitor. Elyl Ricci RN 01/11/2014 18:58 * Plan of [...] Care - Ana Vargas RN - 01/10/2014 5338 EDT Problem: NAUSEA AND VOMITING Goal: Patient [...] EDT Problem: PSYCHOSOCIAL Goal: Demonstrates Ability To [place] With Hospitalization Data: Patient worried that following [...] 01/09/2014 9:30 * Plan of Care - Clemencia Mckeon RN - 01/08/2014 2201 EDT Problem: [...] EDT Problem: PSYCHOSOCIAL Goal: Demonstrates Ability To [place] With Hospitalization Data: Pt is a new admit to [place] [address] room 421 bed 1 from ER. Action: [...] [facility] General Surgery - [address] [address] Bon Gutierrez MD [address] [place] [address], [facility], [address] [place] [address] 09/10/2024 10:00 EDT Appointment [facility] [address] [place] [address] Pending Results Name Type Priority Associated Diagnoses [...] BLOOD GA S ORDERABLES Performing Organization Address [facility] Co de Phone Number [facility] [address] [place] [address] * METHYLMALONIC ACID (01/12/2014 9:17 EDT) [facility] Methylmalonic Acid 0.13 <=0.40 nmol/mL [facility] Comment: Performed or Referred by: [facility] Labs: [facility] [place] [address], Lab Dir: Richard Allan III, MD Blood specimen (specimen) 01/12/2014 9:17 EDT 01/12/2014 9:25 EDT Belle Montano MD CHEMISTRY & BLOOD GA S ORDERABLES Performing Organization Address [facility] de Phone Number [facility] [address] [place] [address] * RAPID HIV 1/2 AB (01/12/2014 9:17 EDT) [facility] Rapid HIV 1/2 Ab Negative [facility] Comment: If acute HIV-1 infection is suspected in a high risk patient, submit plasma specimen for HIV-1 RNA quantification test. Reference Range: ??Negative Assayed utilizing [employer] chemiluminescent technology. Blood specimen (specimen) 01/12/2014 9:17 EDT 01/12/2014 9:25 EDT Belle Montano MD CHEMISTRY & BLOOD GA S ORDERABLES Performing Organization Address [facility] Co de Phone Number [facility] [address] [place] [address] * INPATIENT ADD-ON (01/12/2014 8:50 EDT) [facility] Tests to be added DIFFERENTIAL TO HEMAGRAM [facility] Number for problems [id number] [facility] Accession number [id number] [facility] 01/12/2014 8:50 EDT 01/12/2014 8:51 EDT Belle Montano MD HEMATOLOGY & PF4 ORD ERABLES Performing Organization Address [facility] Co de Phone Number [facility] [address] [place] [address] * (ABNORMAL) DIFFERENTIAL (01/12/2014 5:53 EDT) Neutrophils [...] & PF4 ORD ERABLES Performing Organization Address City/[facility]/ZIP Co de Phone Number [facility] [address] [place] [address] * (ABNORMAL) HEMAGRAM (01/12/2014 5:53 EDT) WBC 2.45(L) 4.0 - 10.4 K/cmm [facility] RBC 2.68(L) 4.36 - 5.78 M/cmm [facility] Hemoglobin 7.9(L) 13.8 - 17.3 gm/dl [facility] HCT 23.2(L) 39.5 - 50.2 % [facility] MCV 87 81 - 95 fl [facility] MCH 29.6 27.6 - 33.0 pg [facility] MCHC 34.1 32.8 - 36.4 gm/dl [facility] PLT 100(L) 141 - 320 K/cmm [facility] RDW-CV 19.9(H) 11.8 - 14.1 % [facility] Comment:2+ Anisocytosis Blood specimen (specimen) 01/12/2014 5:53 EDT 01/12/2014 6:12 EDT Abdiaziz Cruz MD HEMATOLOGY & PF4 ORD ERABLES Performing Organization Address [facility] Co de Phone Number [facility] [address] [place] [address] * ELECTROLYTES (01/12/2014 5:53 EDT) Sodium 139 136 - 145 mEq/L [facility] Potassium 3.6 3.5 - 5.0 mEq/L [facility] Chloride 109 96 - 110 mEq/L [facility] CO2 24 24 - 32 mEq/L [facility] Blood specimen (specimen) 01/12/2014 5:53 EDT 01/12/2014 6:12 EDT Abdiaziz Cruz MD CHEMISTRY & BLOOD GA S ORDERABLES Performing Organization Address [facility] de Phone Number [facility] [address] [place] [address] * CREATININE (01/12/2014 5:53 EDT) Creatinine 0.84 0.66 - 1.25 mg/dl [facility] GFR, Calculated >60 >60 ml/min/1.7 3m2 [facility] Blood specimen (specimen) 01/12/2014 5:53 EDT 01/12/2014 6:12 EDT Abdiaziz Cruz MD CHEMISTRY & BLOOD GA S ORDERABLES Performing Organization Address [facility] Co de Phone Number [facility] [address] [place] [address] * BUN (01/12/2014 5:53 EDT) BUN 14 10 - 26 mg/dl [facility] Blood specimen (specimen) 01/12/2014 5:53 EDT 01/12/2014 6:12 EDT Abdiaziz Cruz MD CHEMISTRY & BLOOD GA S ORDERABLES Performing Organization Address [facility]/ZIP Co de Phone Number [facility] [address] [place] [address] * (ABNORMAL) HEMAGRAM (01/11/2014 18:01 EDT) WBC 2.63(L) 4.0 - 10.4 K/cmm [facility] RBC 2.83(L) 4.36 - 5.78 M/cmm [facility] Hemoglobin 8.2(L) 13.8 - 17.3 gm/dl [facility] HCT 24.5(L) 39.5 - 50.2 % [facility] MCV 87 81 - 95 fl [facility] MCH 29.0 27.6 - 33.0 pg [facility] MCHC 33.6 32.8 - 36.4 gm/dl [facility] LAB PLT 118(L) 141 - 320 K/cmm [facility] RDW-CV 20.2(H) 11.8 - 14.1 % [facility] Comment:2+ Anisocytosis Blood specimen (specimen) 01/11/2014 18:01 EDT 01/11/2014 18:21 EDT Abdiaziz Cruz MD HEMATOLOGY & PF4 ORD ERABLES Performing Organization Address City/[facility]/ZIP Co de Phone Number [facility] [address] [place] [address] * (ABNORMAL) HEMAGRAM (01/11/2014 5:42 EDT) WBC [...] & PF4 ORD ERABLES Performing Organization Address [facility] Co de Phone Number [facility] [address] [place] [address] * (ABNORMAL) ELECTROLYTES (01/11/2014 5:42 EDT) Sodium 140 136 - 145 mEq/L [facility] Potassium 3.6 3.5 - 5.0 mEq/L [facility] Chloride 110 96 - 110 mEq/L [facility] CO2 22(L) 24 - 32 mEq/L [facility] Blood specimen (specimen) 01/11/2014 5:42 EDT 01/11/2014 6:26 EDT Abdiaziz Cruz MD CHEMISTRY & BLOOD GA S ORDERABLES Performing Organization Address [facility] Co de Phone Number [facility] [address] [place] [address] * CREATININE (01/11/2014 5:42 EDT) Creatinine 1.00 0.66 - 1.25 mg/dl [facility] GFR, Calculated >60 >60 ml/min/1.7 3m2 [facility] Blood specimen (specimen) 01/11/2014 5:42 EDT 01/11/2014 6:26 EDT Abdiaziz Cruz MD CHEMISTRY & BLOOD GA S ORDERABLES Performing Organization Address City/[facility]/ZIP Co de Phone Number [facility] [address] [place] [address] * BUN (01/11/2014 5:42 EDT) BUN 16 10 - 26 mg/dl [facility] Blood specimen (specimen) 01/11/2014 5:42 EDT 01/11/2014 6:26 EDT Abdiaziz Cruz MD CHEMISTRY & BLOOD GA S ORDERABLES Performing Organization Address [facility] Co de Phone Number [facility] [address] [place] [address] * PROCEDURE REPORTS - SCANNED (01/11/2014 0:42 EDT) 01/11/2014 0:42 EDT Narrative 01/11/2014 1:28 EDT Procedure Note DRUG WORKER, SCAN 2 - 01/11/2014 0:42 EDT Scan 2 Hotel Dining Room Cashier PROCEDURE/MINOR TY GICAL ORDERABLES * (ABNORMAL) HEMAGRAM [...] Abdiaziz Cruz MD HEMATOLOGY & PF4 ORD [email or web address] [facility] [address] [place] [address] * (ABNORMAL) HEMAGRAM (01/10/2014 16:39 EDT) WBC [...] Abdiaziz Cruz MD HEMATOLOGY & PF4 ORD [email or web address] [facility] [address] [place] [address] * (ABNORMAL) HEMAGRAM (01/10/2014 5:39 EDT) WBC 2.61(L) 4.0 - 10.4 K/cmm [facility] RBC 2.94(L) 4.36 - 5.78 M/cmm [facility] Hemoglobin 8.6(L) 13.8 - 17.3 gm/dl [facility] HCT 25.4(L) 39.5 - 50.2 % [...] & PF4 ORD ERABLES Performing Organization Address [facility] de Phone Number [facility] [address] [place] [address] * (ABNORMAL) ELECTROLYTES (01/10/2014 5:39 EDT) Pathologist [facility] Sodium 144 136 - 145 mEq/L [facility] Potassium 3.8 3.5 - 5.0 mEq/L [facility] Chloride 111(H) 96 - 110 mEq/L [facility] CO2 22(L) 24 - 32 mEq/L [facility] Blood specimen (specimen) 01/10/2014 5:39 EDT 01/10/2014 7:23 EDT Abdiaziz Cruz MD CHEMISTRY & BLOOD GA S ORDERABLES Performing Organization Address [facility] Co de Phone Number [facility] [address] [place] [address] * CREATININE (01/10/2014 5:39 EDT) Creatinine 0.90 0.66 - 1.25 mg/dl [facility] GFR, Calculated >60 >60 ml/min/1.7 3m2 [facility] Blood specimen (specimen) 01/10/2014 5:39 EDT 01/10/2014 7:23 EDT Abdiaziz Cruz MD CHEMISTRY & BLOOD GA S ORDERABLES Performing Organization Address [facility] Co de Phone Number [facility] [address] [place] [address] * BUN (01/10/2014 5:39 EDT) BUN 20 10 - 26 mg/dl [facility] Blood specimen (specimen) 01/10/2014 5:39 EDT 01/10/2014 7:23 EDT Abdiaziz Cruz MD CHEMISTRY & BLOOD GA S ORDERABLES Performing Organization Address [facility] Co de Phone Number [facility] [address] [place] [address] * (ABNORMAL) HEMAGRAM (01/09/2014 21:34 EDT) WBC [...] & PF4 ORD ERABLES Performing Organization Address [facility] Co de Phone Number [facility] [address] [place] [address] * (ABNORMAL) HEMAGRAM (01/09/2014 16:52 EDT) WBC [...] Cottrell MD HEMATOLOGY & PF4 OR DERABLES [facility] [address] [place] [address] * (ABNORMAL) HEMAGRAM (01/09/2014 14:02 EDT) WBC [...] LAB PLT 120(L) 141 - 320 K/cmm [facility] RDW-CV 21.5(H) 11.8 - 14.1 % [facility] Comment:2+ Anisocytosis Blood specimen (specimen) 01/09/2014 14:02 EDT 01/09/2014 14:24 EDT Abdiaziz Cruz MD HEMATOLOGY & PF4 ORD [employer] Performing Organization Address [facility] de Phone Number [facility] [address] [place] [address] * (ABNORMAL) HEMAGRAM (01/09/2014 9:04 EDT) WBC [...] & PF4 ORD ERABLES Performing Organization Address [facility] Co de Phone Number [facility] [address] [place] [address] * CREATININE (01/09/2014 9:04 EDT) Creatinine 0.86 0.66 - 1.25 mg/dl [facility] GFR, Calculated >60 >60 ml/min/1.7 3m2 [facility] Blood specimen (specimen) 01/09/2014 9:04 EDT 01/09/2014 9:14 EDT Belle Montano MD CHEMISTRY & BLOOD GA S ORDERABLES Performing Organization Address City/[facility] Co de Phone Number [facility] [address] [place] [address] * (ABNORMAL) BUN (01/09/2014 9:04 EDT) BUN 28(H) 10 - 26 mg/dl [facility] Blood specimen (specimen) 01/09/2014 9:04 EDT 01/09/2014 9:14 EDT Belle Montano MD CHEMISTRY & BLOOD GA S ORDERABLES Performing Organization Address [facility] Co de Phone Number [facility] [address] [place] [address] * (ABNORMAL) ELECTROLYTES (01/09/2014 9:04 EDT) Sodium 140 136 - 145 mEq/L [facility] Potassium 3.9 3.5 - 5.0 mEq/L [facility] Chloride 112(H) 96 - 110 mEq/L [facility] CO2 23(L) 24 - 32 mEq/L [facility] Blood specimen (specimen) 01/09/2014 9:04 EDT 01/09/2014 9:14 EDT Belle Montano MD CHEMISTRY & BLOOD GA S ORDERABLES Performing Organization Address [facility] Co de Phone Number [facility] [address] [place] [address] * (ABNORMAL) HEMAGRAM (01/09/2014 2:02 EDT) WBC [...] & PF4 ORDERABLES [facility] [address] [place] [address] * PROCEDURE REPORTS - SCANNED (01/09/2014 0:39 EDT) 01/09/2014 0:39 EDT Narrative 01/09/2014 1:54 EDT Procedure Note DRUG WORKER, SCAN 2 - 01/09/2014 0:39 EDT Scan 2 Hotel Dining Room Cashier PROCEDURE/MINOR TY GICAL ORDERABLES * (ABNORMAL) HEMAGRAM [...] PF4 ORD ERABLES [facility] [address] [place] [address] * PREPARE RED BLOOD CELLS (01/08/2014 12:30 EDT) Product Code E0685 -3 Apheresis RED BLOOD CELLS, Leukocytes Reduced [facility] Donor Number [id number] [facility] Unit ABO O [facility] Rh POS [facility] Cross Match Interp Compatible [facility] Unit Status Released From [facility] BLOOD [facility] 01/08/2014 12:3 0 EDT Provider Unknown BLOOD BANK ORDERABLE S [facility] * PREPARE RED BLOOD CELLS (01/08/2014 12:30 EDT) Product Code E0336 -1 RED BLOOD CELLS, Leukocytes Reduced [facility] Donor Number [id number] [facility]OD [facility] Unit ABO A [facility] Unit Rh POS [facility]LOOD BANK Cross Match Interp Compatible [facility] Unit Status Released From [facility] BLOOD BANK 01/08/2014 12:3 0 EDT Provider Unknown BLOOD BANK ORDERABLE S [facility] * PREPARE RED BLOOD CELLS (01/08/2014 11:15 EDT) Product Code E0336 -1 RED BLOOD CELLS, Leukocytes Reduced [facility] Donor Number [id number] [facility]LOOD BANK Unit ABO A [facility] Unit Rh POS [facility] Cross Match Interp Compatible [facility] Unit Status Released From [facility] BLOOD BANK 01/08/2014 11:1 5 EDT Provider Unknown BLOOD BANK ORDERABLE S Performing Organization Address [facility]/ZIP Co de Phone Number [facility] BLOOD BANK * PREPARE RED BLOOD CELLS (01/08/2014 11:15 EDT) Product Code E0336 -1 RED BLOOD CELLS, Leukocytes Reduced [facility] Donor Number [id number] [facility] Unit ABO A [facility] Unit Rh POS [facility] Cross Match Interp Compatible [facility] Unit Status Released From [facility] BLOOD [facility] Blood specimen (specimen) 01/08/2014 11:15 EDT Karrie Rose MD BLOOD BANK ORDERABLE S Performing Organization Address [facility] Co de Phone Number [facility] BLOOD BANK * ANTIBODY IDENTIFICATION (01/08/2014 10:58 EDT) Antibody Identification Anti-E Anti-c (joseph) [facility] 01/08/2014 10:5 8 EDT Provider Unknown BLOOD BANK TESTS Performing Organization Address [facility]/ZIP Co de Phone Number [facility] * DIFFERENTIAL (01/08/2014 9:36 EDT) % Neutrophils 65.3 45.5 - 79.7 % [facility] % Lymphocytes 22.5 15.0 - 46.8 % [facility] % Monocytes 9.9 1.8 - 12.0 % [facility] % Eosinophils 1.2 0.6 - 6.9 % [facility] % Basophils 1.1 0.2 - 1.4 % [facility] ABS Neutrophils 4.85 2.20 - [...] & PF4 ORD ERABLES Performing Organization Address City/[facility] Co de Phone Number [facility] [address] [place] [address] * (ABNORMAL) HEMAGRAM (01/08/2014 9:36 EDT) WBC [...] Zac Morillo MD HEMATOLOGY & PF4 ORD [email or web address] Performing Organization Address [facility] Co de Phone Number [facility] [address] [place] [address] * (ABNORMAL) PROTIME (01/08/2014 9:36 EDT) Pro [...] & PF4 ORD ERABLES Performing Organization Address [facility] de Phone Number [facility] [address] [place] [address] * MAGNESIUM (01/08/2014 9:36 EDT) Magnesium 1.8 1.7 - 2.8 mg/dl [facility] Blood specimen (specimen) 01/08/2014 9:36 EDT 01/08/2014 9:50 EDT Zac Morillo MD CHEMISTRY & BLOOD GA S ORDERABLES Performing Organization Address [facility] Phone Number [facility] [address] [place] [address] * (ABNORMAL) HEPATIC FUNCTION PANEL (ALB,ALK PHOS,ALT,AST,DBIL,TOT [...] BLOOD GA S ORDERABLES Performing Organization Address [facility]/ZIP Co de Phone Number [facility] [address] [place] [address] * (ABNORMAL) SCREENING GLUCOSE (01/08/2014 9:36 EDT) Glucose, Screening 187(H) 70 - 100 mg/dl [facility] Blood specimen (specimen) 01/08/2014 9:36 EDT 01/08/2014 9:50 EDT Zac Morillo MD CHEMISTRY & BLOOD GA S ORDERABLES Performing Organization Address [facility] Co de Phone Number [facility] [address] [place] [address] * CREATININE (01/08/2014 9:36 EDT) Creatinine 0.90 0.66 - 1.25 mg/dl [facility] GFR, Calculated >60 >60 ml/min/1.7 3m2 [facility] Blood specimen (specimen) 01/08/2014 9:36 EDT 01/08/2014 9:50 EDT Zac Morillo MD CHEMISTRY & BLOOD GA S ORDERABLES Performing Organization Address [facility] Co de Phone Number [facility] [address] [place] [address] * (ABNORMAL) BUN (01/08/2014 9:36 EDT) BUN 45(H) 10 - 26 mg/dl [facility] Blood specimen (specimen) 01/08/2014 9:36 EDT 01/08/2014 9:50 EDT Zac Morillo MD CHEMISTRY & BLOOD GA S ORDERABLES Performing Organization Address [facility] Co de Phone Number [facility] [address] [place] [address] * (ABNORMAL) ELECTROLYTES (01/08/2014 9:36 EDT) Sodium [...] GA S ORDERABLES [facility] [address] [place] [address] * TYPE AND SCREEN (01/08/2014 9:35 EDT) ABO A [facility] Rh Factor Positive [facility] Antibody Screen Positive [facility] Comment:SPECIMEN EXPIRES AT 23:59 ON 01/11/2014 Blood specimen (specimen) 01/08/2014 9:35 EDT Zac Morillo MD BLOOD BANK TESTS Performing Organization Address [facility]/ZIP Co de Phone Number [facility] documented in this encounter Visit [...] 07/2013 documented in this encounter Care Teams Nuclear Medicine Technologist Relationship Specialty Start Date End Date Kamala Rosado MD [address] [address] PCP - General 10/05/13 10/19/15 documented as of this encounter
--- OUTSIDE RECORDS SUMMARY | 2024-01-17 15:40 | XMS_ITS | Encounter Summary ---
Author Organization [facility] Address [address] [place] [address] Care Team Providers Care Bander And Cellophaner Machine Name Role Phone Barbra Vaughn MD Primary Care Provider [phone] Reason for Visit * Reason Comments Cirrhosis New Patient Visit * Consult (Routine) - Closed Specialty Diagnoses / Procedures Referred By Contact Referred To Contact Gastroenterology and Hepatology Diagnoses Cirrhosis (HCC-CMS) Barbra Vaughn MD [address] [place] [address] [address] [place] [address] Brody Duran MD PhD [address] [phone] Referral ID Status Reason Start Date Expiration Date Visits Re quested Visits Authorized [id number] Closed 1 1 Encounter Details Date Type Department Care Team (Late st Contact Info) Description 03/14/2013 14:30 EST Office Visit [facility] Gastroenterology - [facility] [address], [place] [id number] Brody Duran MD PhD [address] [phone] Chronic hepatitis C without mention [...] GASTROENTEROLOGY CONSULTATION - 03/14/2013 [place] [address] Vaughn, Thank you for asking me to see your patient, Alonzo Urbina, in consultation today. As you know, he is a 57-year-old man with cirrhosis secondary to hepatitis C. The diagnosis of hepatitis C was made in 2001 in [place] during routine laboratory testing. The patient is unaware of the hepatitis C viral genotype, and he does not know whether serology for hepatitis A or B was obtained. 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 He had a prolonged hospitalization at [facility] and ultimately recovered with a disability. 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 He was transferred to [facility] where variceal band ligation was performed, and he was placed on nadolol. He has undergone surveillance endoscopy since that time, most recently in December 2012. He has also undergone surveillance right upper quadrant abdominal ultrasound, most recently in April 2012. There is a history of recurrent rectal bleeding of uncertain etiology. An extensive evaluation at [facility] in the winter of 2012 included an upper endoscopy, colonoscopy, and capsule endoscopy, and no bleeding source was identified. The last episode of hematochezia was appr oximately 3 weeks ago, and it was transient. He has been maintained on iron supplements for management. Past health is otherwise significant for scoliosis, a history of depression and nephrolithiasis. [id number], blood transfusion was performed during back surgery. [...] white blood cell count 4.5, hematocrit 39, [id number], and laboratory data obtained today show bilirubin [...] that I arrange for this here at [facility]. Based on the history, I do [...] - Brody Duran MD,PhD rn Dictation ID: [id number] cc: Barbra Vaughn MD, [address] [address] documented in this encounter Plan of Treatment Upcoming Encounters Date Type Department Care Team (Late st Contact Info) Description 01/23/2024 10:00 EDT Office Visit [facility] General Surgery - [facility] [address], [place] [address] Bon Gutierrez MD 111 [facility], [address] [place] [phone] 09/10/2024 10:00 EDT Appointment Shaina Rubio Mejia [address] [place] [phone] documented as of this encounter Results * HCV RNA QUANT WITH REFLEX TO GENOTYPE (03/14/2013 14:34 EST) [facility] HCV RNA Detect Quant 1,582,168 IU/mL [facility] Comment: Reference Range: ??Undetected The quantification range of this assay is 15 IU/mL to 100,000,000 IU/mL. Testing was performed by the Mili Ampliprep/Mili TaqMan HCV v2.0 ([employer] Note new version HCV v2.0 in use 01/11/2013. Blood specimen (specimen) 03/14/2013 14:34 EST 03/14/2013 14:51 EST Brody Duran MD PhD CHEMISTRY & BLO OD GAS ORDERABLES [facility] [address] [place] [address] * HEPATITIS B SURFACE ANTIGEN (03/14/2013 14:34 EST) [facility] Hepatitis B Surface Ag Negative [facility] Comment:Reference Range: Neg ative Blood specimen (specimen) 03/14/2013 14:34 EST 03/14/2013 14:51 EST Brody Duran MD PhD CHEMISTRY & BLO OD GAS ORDERABLES Performing Organization Address [facility] de Phone Number [facility] [address] [place] [address] * HEPATITIS B SURFACE ANTIBODY (03/14/2013 14:34 [...] BLO OD GAS ORDERABLES Performing Organization Address [facility] de Phone Number [facility] [address] [place] [address] * HEPATITIS A TOTAL ANTIBODY (03/14/2013 14:34 EST) Hep A Antibody Negative [facility] Comment:Reference Range: Neg ative Blood specimen (specimen) 03/14/2013 14:34 EST 03/14/2013 14:51 EST Brody Duran MD PhD CHEMISTRY & BLO OD GAS ORDERABLES Performing Organization Address [facility] de Phone Number [facility] [address] [place] [address] * PROTIME (03/14/2013 14:34 EST) Pro Time [...] & PF 4 ORDERABLES Performing Organization Address City/[facility]/ZIP Co de Phone Number [facility] [address] [place] [address] * (ABNORMAL) COMPREHENSIVE METABOLIC PANEL (CMP) (03/14/2013 [...] BLO OD GAS ORDERABLES Performing Organization Address City/[facility] Co de Phone Number [facility] [address] [place] [address] documented in this encounter Visit Diagnoses Diagnosis [...] 06/16/2013 added in this encounter Care Teams Bander And Cellophaner Machine Relationship Specialty Start Date End Date Barbra Vaughn MD [address] [place] [address] PCP - General 02/27/13 10/04/13 documented as of this encounter
--- OUTSIDE RECORDS SUMMARY | 2024-01-17 15:40 | XMS_ITS | Encounter Summary ---
Author Organization [facility] Address [address] [place] [address] Care Team Providers Care Award Machine Operator Name Role Phone Kamala Rosado MD Primary Care Provider [phone] Reason for Visit * Reason Comments Rectal Bleeding pt started to have b loody stools about one week ago for 2 dys then resolved. has had loose black stools for about 2 dys with fatigue and abd pain Encounter Details Date Type Department Care Team (Late st Contact Info) Description 10/05/2013 20:27 EDT - 10/06/2013 15:20 EDT Hospital Encounter [facility] Hematology & Oncology Unit [address] [place], [place] [phone] Deedee Silver PA-C 111 [facility], [address] [place] [address] Radha Gamboa MD [address] [phone] GI bleed (Primary Dx); Cirrhosis [...] Used ??? Alcohol Use: No Lives in [place], [place], with fiance; on disability due to [...] 13:55 * José Catalan MD - 10/05/2013 5529 EDT Gastroenterology & Hepatology Consult Note The [...] examined with Dr. Alayna Jennings MD Pager #[phone] Gastroenterology & Hepatology Fellow 10/05/2013 17:39 HPI: [...] Notes * Hong Brody RN - 10/05/2013 4433 EDT Pt transferred to [facility] via in stable condition with transport. * Deedee Silver PA - 10/05/2013 0120 EDT DOS: 10/05/2013 Chief Complaint Patient presents [...] hospitalizations at both department and here at [facility]. Last admission was 06/22. Should not also [...] Number Unit ABO Unit Rh Cross Match [facility] 10/05/13 18:42:00 10/05/13 19:19:58 E0382 -3 RED BLOOD CELLS, Leukocytes Reduced [id number] POS Compatible Collection Time Result Time Unit Status 10/05/13 18:42:00 10/05/13 19:19:58 Crossmatch PREPARE RED BLOOD CELLS (Final result) Component (Lab Inquiry) Collection Time Result Time Product Code Donor Number Unit ABO Unit Rh Cross Match [facility] 10/05/13 18:42:00 10/05/13 19:19:59 E0382 -3 RED BLOOD CELLS, Leukocytes Reduced [id number] A POS Compatible Collection Time Result Time Unit Status 10/05/13 18:42:00 10/05/13 19:19:59 Crossmatch PREPARE RED BLOOD CELLS (Final result) Component (Lab Inquiry) Collection Time Result Time Product Code Donor Number Unit ABO Unit Rh Cross Match [facility] 10/05/13 18:42:00 10/05/13 19:20:00 E0382 -3 RED BLOOD CELLS, Leukocytes Reduced [id number] A POS Compatible Collection Time Result Time Unit Status 10/05/13 18:42:00 10/05/13 19:20:00 Crossmatch PREPARE RED BLOOD CELLS (Final result) Component (Lab Inquiry) Collection Time Result Time Product Code Donor Number Unit ABO Unit Rh Cross Match [facility] 10/05/13 18:42:00 10/05/13 19:20:02 E0382 -3 RED BLOOD CELLS, Leukocytes Reduced [id number] A POS Compatible Collection Time Result Time [...] Neg Neg Collection Time Result Time Specific Alvin Blood pH Protein Urobilinogen 10/05/13 15:45:00 10/05/13 15:54:31 1.025 Neg 5.5 Neg 0.2 Collection Time Result Time Nitrite Leuk Esterase TECH ID 10/05/13 15:45:00 10/05/13 15:54:31 Neg Neg [id number] Test performed at Emergency Department ELECTROLYTES (Final [...] stable Final diagnoses: GI bleed PCP: MD Mike Hyman was available for supervision. 10/05/2013 22:17 [...] ???Call Someone Now?? pamphlet, advanced directives information, [facility] falls prevention information, provided to and reviewed with Patient. R: Call Sullivan: Pt demonstrates appropriate use. Advance Directives: Pt has advanced directives not yet on file @ [facility]. Fall Precautions and: Call Someone Now Pt verbalizes understanding of printed materials. Pt resting comfortably in bed with call sullivan in reach. Will continue to monitor throughout the night. Shantal Beverly RN 10/05/2013 21:30 documented in this encounter Plan of Treatment Upcoming Encounters Date Type Department Care Team (Late st Contact Info) Description 01/23/2024 10:00 EDT Office Visit [facility] General Surgery - [facility] [address] [place], [place] [phone] Bon Gutierrez MD [address] [facility], [address] [place] [phone] 09/10/2024 10:00 EDT Appointment Shaina Mejia [address] [place] [address] Pending Results Name Type Priority Associated Diagnoses [...] K/cmm [facility] RBC Morphology 1+ [facility] Comment: Anisocytosis 1+ Ovalocytes Type of Diff: Manual [facility] 10/06/2013 6:22 EDT 10/06/2013 7:15 EDT Haile Zuniga MD HEMATOLOGY & PF4 OR DERABLES Performing Organization Address [facility] de Phone Number [facility] [address] [place] [address] * (ABNORMAL) HEMAGRAM (10/06/2013 6:22 EDT) WBC [...] & PF4 OR DERABLES Performing Organization Address [facility] Co de Phone Number [facility] [address] [place] [address] * CREATININE (10/06/2013 6:22 EDT) Creatinine 0.70 0.66 - 1.25 mg/dl [facility] GFR, Calculated >60 >60 ml/min/1.7 3m2 [facility] Blood specimen (specimen) 10/06/2013 6:22 EDT 10/06/2013 7:15 EDT Haile Zuniga MD CHEMISTRY & BLOOD G ORDERABLES Performing Organization Address [facility] de Phone Number [facility] [address] [place] [address] * BUN (10/06/2013 6:22 EDT) BUN 20 10 - 26 mg/dl [facility] Blood specimen (specimen) 10/06/2013 6:22 EDT 10/06/2013 7:15 EDT Haile Zuniga MD CHEMISTRY & BLOOD G ORDERABLES Performing Organization Address [facility] de Phone Number [facility] [address] [place] [address] * (ABNORMAL) ELECTROLYTES (10/06/2013 6:22 EDT) Sodium 141 136 - 145 mEq/L [facility] Potassium 4.1 3.5 - 5.0 mEq/L [facility] Chloride 106 96 - 110 mEq/L [facility] CO2 23(L) 24 - 32 mEq/L [facility] Blood specimen (specimen) 10/06/2013 6:22 EDT 10/06/2013 7:15 EDT Haile Zuniga MD CHEMISTRY & BLOOD G ORDERABLES Performing Organization Address [facility] de Phone Number [facility] [address] [place] [address] * PROTIME (10/06/2013 6:22 EDT) Pro Time [...] & PF4 OR DERABLES Performing Organization Address [facility] Co de Phone Number [facility] [address] [place] [address] * BILIRUBIN, TOTAL (10/06/2013 6:22 EDT) Bilirubin, Total <0.5 <1.4 mg/dl [facility] Comment:Sample retested, res ult confirmed Blood specimen (specimen) 10/06/2013 6:22 EDT 10/06/2013 7:15 EDT Haile Zuniga MD CHEMISTRY & BLOOD G ORDERABLES Performing Organization Address [facility] de Phone Number [facility] [address] [place] [address] * ALKALINE PHOSPHATASE (10/06/2013 6:22 EDT) Total Alkaline Phosphatase 84 38 - 126 U/L [facility] Blood specimen (specimen) 10/06/2013 6:22 EDT 10/06/2013 7:15 EDT Haile Zuniga MD CHEMISTRY & BLOOD G ORDERABLES Performing Organization Address [facility] Co de Phone Number [facility] [address] [place] [address] * (ABNORMAL) AST (10/06/2013 6:22 EDT) AST 104(H) 15 - 46 U/L [facility] Comment:Sample retested, res ult confirmed Blood specimen (specimen) 10/06/2013 6:22 EDT 10/06/2013 7:15 EDT Haile Zuniga MD CHEMISTRY & BLOOD G ORDERABLES Performing Organization Address [facility] Co de Phone Number [facility] [address] [place] [address] * (ABNORMAL) ALT (10/06/2013 6:22 EDT) ALT 88(H) 21 - 72 U/L [facility] Blood specimen (specimen) 10/06/2013 6:22 EDT 10/06/2013 7:15 EDT Haile Zuniga MD CHEMISTRY & BLOOD G ORDERABLES Performing Organization Address [facility] de Phone Number [facility] [address] [place] [address] * SCREENING GLUCOSE (10/06/2013 6:22 EDT) Pathologist [facility] Glucose, Screening 92 70 - 100 mg/dl [facility] Blood specimen (specimen) 10/06/2013 6:22 EDT 10/06/2013 7:15 EDT Haile Zuniga MD CHEMISTRY & BLOOD G ORDERABLES Performing Organization Address [facility] Phone Number [facility] [address] [place] [address] * ANTIBODY IDENTIFICATION (10/05/2013 19:17 EDT) [facility] Antibody Identification Anti-E Anti-c (little) [facility] 10/05/2013 19:1 7 EDT Provider Unknown BLOOD BANK TESTS Performing Organization Address [facility] de Phone Number [facility] * PREPARE RED BLOOD CELLS (10/05/2013 18:42 EDT) [facility] Product Code E0382 -3 RED BLOOD CELLS, Leukocytes Reduced [facility] Donor Number [id number] [facility] Unit ABO A [facility] Unit Rh POS [facility] Cross Match Interp Compatible [facility] Unit Status Released From [employer] [facility] 10/05/2013 18:4 2 EDT Provider Unknown BLOOD BANK ORDERABLE S Performing Organization Address [facility]/ZIP Co de Phone Number [facility] * PREPARE RED BLOOD CELLS (10/05/2013 18:42 EDT) Product Code E0382 -3 RED BLOOD CELLS, Leukocytes Reduced [facility] Donor Number [id number] [facility] Unit ABO A [facility] Unit Rh POS [facility] Cross Match Interp Compatible [facility] Unit Status Released From [facility] BLOOD BANK 10/05/2013 18:4 2 EDT Provider Unknown MD BLOOD BANK ORDERABLE S [facility] * PREPARE RED BLOOD CELLS (10/05/2013 18:42 EDT) Product Code E0382 -3 RED BLOOD CELLS, Leukocytes Reduced [facility] Donor Number [id number] [facility] Unit ABO A [facility] Unit Rh POS [facility] Cross Match Interp Compatible [facility] Unit Status Released From [facility] BLOOD BANK 10/05/2013 18:4 2 EDT Provider Unknown BLOOD BANK ORDERABLE S [facility] * PREPARE RED BLOOD CELLS (10/05/2013 18:42 EDT) Product Code E0382 -3 RED BLOOD CELLS, Leukocytes Reduced [facility] Donor Number [id number] [facility] Unit ABO A [facility] Unit Rh POS [facility] Cross Match Interp Compatible [facility] Unit Status Released From [facility] BLOOD BANK 10/05/2013 18:4 2 EDT Provider Unknown BLOOD BANK ORDERABLE S [facility] * E ANTIGEN (10/05/2013 18:27 EDT) E Antigen Negative [facility] 10/05/2013 18:2 7 EDT Provider Unknown MD BLOOD BANK TESTS Performing Organization Address City/[facility]/ZIP Co de Phone Number [facility] * C ANTIGEN (LITTLE) (10/05/2013 18:27 EDT) c Antigen (little) Negative [facility] 10/05/2013 18:2 7 EDT Provider Unknown MD BLOOD BANK TESTS Performing Organization Address [facility] Co de Phone Number [facility] * ANTIBODY IDENTIFICATION (10/05/2013 17:39 EDT) Antibody Identification Anti-E Anti-c (joseph) Qminder [facility] 10/05/2013 17:3 9 EDT Provider Unknown MD BLOOD BANK TESTS Performing Organization Address [facility] Co de Phone Number [facility] * BLOOD BANK ADDITIONAL SPECIMEN (10/05/2013 17:35 EDT) ABO A [facility] Rh Factor Positive [facility] 10/05/2013 17:3 5 EDT Provider Unknown MD BLOOD BANK TESTS Performing Organization Address City/[facility]/ZIP Co de Phone Number [facility] * POCT URINE DIPSTICK (10/05/2013 15:45 EDT) Color YELLOW [facility] Clarity, UA Clear [facility] Glucose Neg Neg [facility] Bilirubin Neg Neg [facility] Ketones Neg Neg [facility] Specific Alvin 1.025 1.001 - 1.035 [facility] Blood Neg Neg [facility] pH 5.5 4.6 - 8.0 [facility] Protein Neg Neg [facility] Urobilinogen 0.2 0.2 - 1.0 E.U./dl [facility] Nitrite Neg Neg [facility] Leuk Esterase Neg Neg [facility] sheet metal pattern cutter ID [id number] [facility] Comment:Test performed at [facility] Urine specimen (specimen) 10/05/2013 15:45 EDT 10/05/2013 15:54 EDT Deedee Silver PA-C POINT OF CARE TE ST ORDERABLES Performing Organization Address [facility] Co de Phone Number [facility] [address] [place] [address] * (ABNORMAL) DIFFERENTIAL (10/05/2013 14:51 EDT) % [...] HEMATOLOGY & PF4 ORDERABLES Performing Organization Address [facility] de Phone Number [facility] [address] [place] [address] * (ABNORMAL) HEMAGRAM (10/05/2013 14:51 EDT) WBC [...] HEMATOLOGY & PF4 ORDERABLES Performing Organization Address [facility] Co de Phone Number [facility] [address] [place] [address] * PROTIME (10/05/2013 14:51 EDT) Pro Time [...] HEMATOLOGY & PF4 ORDERABLES Performing Organization Address [facility]/ZIP Co de Phone Number [facility] [address] [place] [address] * LIPASE (10/05/2013 14:51 EDT) Pathologist [facility] Lipase 227 0 - 250 U/L [facility] Blood specimen (specimen) 10/05/2013 14:51 EDT 10/05/2013 15:06 EDT Deedee Silver PA-C CHEMISTRY & BLOO D GAS ORDERABLES Performing Organization Address [facility] Co de Phone Number [facility] [address] [place] [address] * (ABNORMAL) HEPATIC FUNCTION PANEL (ALB,ALK PHOS,ALT,AST,DBIL,TOT MARVEL,TOT PROT) (10/05/2013 14:51 EDT) [facility] Albumin 4.0 3.4 - 4.9 g/dl [facility] Total Protein 7.9 6.5 - 8.3 g/dl [facility] Total Alkaline Phosphatase 100 38 - 126 U/L [facility] ALT 103(H) 21 - 72 U/L [facility] AST 158(H) 15 - 46 U/L [facility] Unconjugated Bilirubin 0.8 0.0 - 1.1 mg/dl [facility] Conjugated Bilirubin 0.0 0.0 - 0.3 mg/dl [facility] Bilirubin, Total 1.1 <1.4 mg/dl [facility] Blood specimen (specimen) 10/05/2013 14:51 EDT 10/05/2013 15:06 EDT Deedee Silver PA-C CHEMISTRY & BLOO D GAS ORDERABLES Performing Organization Address [facility] Co de Phone Number [facility] [address] [place] [address] * CREATININE (10/05/2013 14:51 EDT) Pathologist [facility] Creatinine 0.70 0.66 - 1.25 mg/dl [facility] GFR, Calculated >60 >60 ml/min/1.7 3m2 [facility] Blood specimen (specimen) 10/05/2013 14:51 EDT 10/05/2013 15:06 EDT Deedee Silver PA-C CHEMISTRY & BLOO D GAS ORDERABLES Performing Organization Address [facility] Co de Phone Number [facility] [address] [place] [address] * BUN (10/05/2013 14:51 EDT) BUN 24 10 - 26 mg/dl [facility] Blood specimen (specimen) 10/05/2013 14:51 EDT 10/05/2013 15:06 EDT Deedee Silver PA-C CHEMISTRY & BLOO D GAS ORDERABLES Performing Organization Address [facility] Phone Number [facility] [address] [place] [address] * (ABNORMAL) ELECTROLYTES (10/05/2013 14:51 EDT) Sodium 140 136 - 145 mEq/L [facility] Potassium 4.5 3.5 - 5.0 mEq/L [facility] Chloride 106 96 - 110 mEq/L [facility] CO2 22(L) 24 - 32 mEq/L [facility] Blood specimen (specimen) 10/05/2013 14:51 EDT 10/05/2013 15:06 EDT Deedee Silver PA-C CHEMISTRY & BLOO D GAS ORDERABLES Performing Organization Address [facility] de Phone Number [facility] [address] [place] [address] * TYPE AND SCREEN (10/05/2013 14:40 EDT) ABO A [facility] Rh Factor Positive [facility] Antibody Screen Positive [facility] Comment:sample expires 2013 at 23:59. [...] 09/10 documented in this encounter Care Teams Award Machine Operator Relationship Specialty Start Date End Date Kamala Rosado MD [address] [address] PCP - General 10/05/13 10/19/15 documented as of this encounter
--- OUTSIDE RECORDS SUMMARY | 2024-01-17 15:40 | XMS_ITS | Encounter Summary ---
Author Organization [facility] Address [address] [place] [address] Care Team Providers Care Lacquer Pin Press Operator Name Role Phone Barbra Vaughn MD Primary Care Provider [phone] Encounter Details Date Type Department Care Team (Late st Contact Info) Description 03/15/2013 Results Only [facility] Gastroenterology - [address] [address] Brody Duran MD PhD [address] [place] [address] [phone] Social History Tobacco Use Types Packs/Day Years [...] [facility] General Surgery - [address] [id number] Bon Gutierrez MD [address] [place] [address] [phone] 09/10/2024 10:00 EDT Appointment Shaina Mejia [address] [place] [address] documented as of this encounter Procedures Procedure Name Priority Date/Time Associated Diagnosis Comments HCV GENOTYPE, SERUM Routine 03/14/2013 1 4:34 EST documented in this encounter Results * HCV GENOTYPE, SERUM (03/14/2013 14:34 EST) Hepatitis C Genotype 1a Undetected [facility] Comment: (Note) Testing was done using the Turpin HCV Genotype II Assay. Performed by: [facility] Labs: [facility], [address] [place], [place] [address], Lab Dir: Richard Allan III, MD 03/14/2013 14:3 4 EST 03/14/2013 14:51 EST Brody Duran MD PhD CHEMISTRY & BLO OD GAS ORDERABLES Performing Organization Address City/State/[facility] Co de Phone Number [facility] [address] [place] [address] documented in this encounter Visit Diagnoses Not on filedocumented in this encounter Care Teams Lacquer Pin Press Operator Relationship Specialty Start Date End Date Barbra Vaughn MD [address] [place] [address] PCP - General 02/27/13 10/04/13 documented as of this encounter
--- OUTSIDE RECORDS SUMMARY | 2024-01-17 15:40 | XMS_ITS | Encounter Summary ---
Author Organization [facility] Address [address] [place] [address] Care Team Providers Care Care Program Director Name Role Phone Kamala Rosado MD Primary Care Provider [phone] Reason for Visit * Reason Onset Date Comments Other 01/07/2014 Encounter Details Date Type Department Care Team (Late st Contact Info) Description 01/07/2014 Telephone [facility] Gastroenterology - [address] [id number] Brody Duran MD PhD [address] [facility], [address] [place] [address] Other Social History Tobacco Use [...] at his PCP.s office Dr.Clea Rosado in [place]. He would like ,s input. was made [...] Description 01/23/2024 10:00 EDT Office Visit [facility] General Surgery - [facility] [address] [place], [place] [phone] Bon Gutierrez MD [address] [facility], [address] [place] [address] 09/10/2024 10:00 EDT Appointment Shaina [place] [address] [place], [place] [address] documented as of this encounter Visit Diagnoses Not on filedocumented in this encounter Care Teams Care Program Director Relationship Specialty Start Date End Date Kamala Rosado MD [address] [id number] PCP - General 10/05/13 10/19/15 documented as of this encounter
--- OUTSIDE RECORDS SUMMARY | 2024-01-17 15:40 | XMS_ITS | Encounter Summary ---
Author Organization [facility] Address [address] [place] [address] Care Team Providers Care Wool Presser Name Role Phone Barbra Vaughn MD Primary Care Provider [phone] Encounter Details Date Type Department Care Team (Late st Contact Info) Description 06/18/2013 9:56 EDT - 06/18/2013 23:59 EDT Hospital Encounter [address] [address] Brody Duran MD PhD [address] [place] [address], [address] [place] [address] Discharge Disposition: Home or Self [...] Code Departure Means Destination Home or Self Long Term documented in this encounter Plan of Treatment Upcoming Encounters Date Type Department Care Team (Late st Contact Info) Description 01/23/2024 10:00 EDT Office Visit [facility] General Surgery - [facility] [address] [place], [place] [address] Bon Gutierrez MD [address] [facility], [address] [place] [phone] 09/10/2024 10:00 EDT Appointment Shaina Mejia [address] [place] [address] documented as of this encounter Visit Diagnoses Not on filedocumented in this encounter Care Teams Wool Presser Relationship Specialty Start Date End Date Barbra Vaughn MD [address] [facility] [address] [place] [address] PCP - General 02/27/13 10/04/13 documented as of this encounter
--- OUTSIDE RECORDS SUMMARY | 2024-01-17 15:40 | XMS_ITS | Encounter Summary ---
Author Organization [facility] Address [address] [place] [address] Care Team Providers Care Car Carder Name Role Phone Barbra Vaughn MD Primary Care Provider [phone] Reason for Visit * Reason Onset Date Comments Other 03/29/2013 Encounter Details Date Type Department Care Team (Late st Contact Info) Description 03/29/2013 Telephone [facility] Gastroenterology - [address] [address] Eden Toscano RN Other Social History Tobacco [...] Encounter - Eden Toscano RN - 03/29/2013 8563 EST Patient states he was asked by his PCP to call to be treated for Hep C soon because his HCV PCR has increased. reviewed his last note on 03/14/13 & his recent result letter & recommends the patient wait for interferon- free therapy ,due to his previous treatment response & side effects from interferon. He was advised to continue to monitor the [facility] [facility] fornew updates on these treatments. He verbalized understanding & is satisfied with this plan. documented in this encounter Plan of Treatment Upcoming Encounters Date Type Department Care Team (Late st Contact Info) Description 01/23/2024 10:00 EDT Office Visit [facility] General Surgery - [facility] [address] [place], [place] [address] Bon Gutierrez MD [address] [facility], [address] [place] [phone] 09/10/2024 10:00 EDT Appointment Shaina Bergeron [id number] [place], [place] [address] documented as of this encounter Visit Diagnoses Not on filedocumented in this encounter Care Teams Car Carder Relationship Specialty Start Date End Date Barbra Vaughn MD [address] [facility] [address] [place] [address] PCP - General 02/27/13 10/04/13 documented as of this encounter
[2024-01-17 17:07] LABS: ALT 35 U/L (16-63); AST 32 U/L (15-37); Albumin 3.2 g/dL (3.4-5.0); Alkaline Phosphatase 95 U/L (46-116); Bilirubin, Direct 0.4 mg/dL (0.0-0.2); Bilirubin, Total 1.29 mg/dL (0.2-1.0); Total Protein 6.4 g/dL (6.4-8.2)
== END 2024-01-17 15:30 | disposition home or self-care (01) ==
LOC: NCHCN 15:29
PROVIDERS: PCP Physician Assistant; Visit Provider Physician Assistant
DX: R10.9 Unspecified abdominal pain (principal)
CPT/HCPCS: 80076

== ENCOUNTER 2024-01-20 15:41 | Emergency (ER) | payer OTHER, SELFPAY ==
[2024-01-20 15:42] VITALS: BP 163/83; PULSE 79; RESP 18; TEMP 36.4; O2SAT 97
--- OUTSIDE RECORDS SUMMARY | 2024-01-20 15:49 | XMS_ITS | Encounter Summary ---
[place] [address] Care Team Providers Care Automatic Maintainer Name Role Phone Katia Blanco APRN Primary [...] 8:15 AM EST Office Visit Dermatology at [address] [place] [address] Jin Nunez MD [address], [place] [address] documented as of this encounter Visit Diagnoses Not on filedocumented in this encounter Care Teams Automatic Maintainer Relationship Specialty Start Date End Date Katia Blanco APRN [address] [place] [address] PCP - General Family Medicine 02/13/19 11/11/22 documented as of this encounter
--- OUTSIDE RECORDS SUMMARY | 2024-01-20 15:49 | XMS_ITS | Encounter Summary ---
[place] [address] Care Team Providers Care Lead Informatica Developer Name Role Phone Laurie Wiggins MD Primary Care Provider [phone] Encounter Details Date Type Department Care Team (Late st Contact Info) Description 12/27/2012 Orders [place] [address] Paty Pedraza, [facility] [place] [address] Cirrhosis (Primary Dx) Social History Tobacco Use [...] 8:15 AM EST Office Visit Dermatology at [place] [address] [facility] [place] [phone] Jin Nunez MD [address], [place] [address] documented as of this encounter Visit Diagnoses Diagnosis Cirrhosis- Primary Cirrhosis of liver without mention of alcohol documented in this encounter Care Teams Lead Informatica Developer Relationship Specialty Start Date End Date Laurie Wiggins MD [address] [place] [address] PCP - General 03/03/10 02/12/19 documented as of this encounter
--- OUTSIDE RECORDS SUMMARY | 2024-01-20 15:49 | XMS_ITS | Encounter Summary ---
Author Organization [facility] [place] [address] Care Team Providers Care Marketing Communications Coordinator Name Role Phone Katia Blanco APRN Primary Care Provider [phone] Reason for Visit * Reason Comments Skin Check * Consultation (Routine) - Specialty Diagnoses / Procedures Referred By Contreinaldo t Referred To Contact Dermatology Diagnoses Other hypertrophic disorders of the skin Personal history of other malignant neoplasm of skin Skin tags/Hx of BCC Procedures Consult Katia Blanco APRN [address] [place] [address] Jin Nunez MD [address] [place] [address], [facility] [place] [address] Referral ID Status Reason Start Date Expiration Date V isits Requested Visits Authorized [id number] Consult, Test & Treat PCP Updated and/or Approved 05/01/2019 07/31/2019 6 6 Encounter Details Date Type Department Care Team (Late st Contact Info) Description 12/18/2019 11:15 AM EDT Office Visit Dermatology at [address] [phone] Jin Nunez MD [address] [place] [address], [facility] DERMATOLOGY [place], [place] [id number] History of basal cell carcinoma; Nevus; Acrochordon [...] of BCCA status post Mohs surgery 2015 [facility] 3. History of growing up in [place] and many years spent in [place] Alonzo is a 64-year-old gentleman who would like to establish himself in my practice. He has a history of skin cancer as noted above. He was last checked by a allergy physician 2 years ago. [id number] and does spend a lot of time [...] 8:15 AM EST Office Visit Dermatology at [place] [address] [place] [address] Jin Nunez MD [address], [place] [address] documented as of this encounter Visit Diagnoses Diagnosis History of basal cell carcinoma Personal history of other malignant neoplasm of skin Nevus Benign neoplasm of skin, site unspecified Acrochordon Unspecified hypertrophic and atrophic condition of skin documented in this encounter Care Teams Marketing Communications Coordinator Relationship Specialty Start Date End Date Katia Blanco APRN [address] [place] [address] PCP - General Family Medicine 02/13/19 11/11/22 documented as of this encounter
--- OUTSIDE RECORDS SUMMARY | 2024-01-20 15:49 | XMS_ITS | Encounter Summary ---
[place] [address] Care Team Providers Care Telephone Triage Nurse Name Role Phone Katia Blanco APRN Primary Care Provider [phone] Encounter Details Date Type Department Care Team (Late Contact Info) Description 11/27/2021 Telephone Dermatology at [address] [address] Francia Pichardo RN Social History [...] 8:15 AM EST Office Visit Dermatology at [place] [address] [place] [address] Jin Nunez MD [address], [place] [address] documented as of this encounter Visit Diagnoses Not on filedocumented in this encounter Care Teams Telephone Triage Nurse Relationship Specialty Start Date End Date Katia Blanco, [employer] [address] [place] [address] PCP - General Family Medicine 02/13/19 11/11/22 documented as of this encounter
--- OUTSIDE RECORDS SUMMARY | 2024-01-20 15:49 | XMS_ITS | Encounter Summary ---
[place] [address] Care Team Providers Care Billboard Erector Helper Name Role Phone Gina Manzo MD Primary Care Provider [phone] Encounter Details Date Type Department Care Team (Latest Contact Info) Description 12/02/2012 11:46 PM EDT - 12/07/2012 12:38 PM EDT Hospital Encounter [address] [place] [address] Sharon Gill MD [facility] [place] [address] [place] [address] [place] [address] GI bleeding (Primary Dx) Discharge Disposition: Home [...] follow-up with your primary care physician and roll edge stitcher hand. You will need a blood test the [...] scheduled with Dr. GINA MANZO MD at [address] [place] [address] on , December 14 at 10:45 am. Future Appointments Date Time Provider Department Center 12/28/2012 8:45 AM 2, Ultrasound Rm US None 12/28/2012 11:30 AM Paty Pedraza, COMMUNICATIONS TOWER CLIMBER [facility] Your Discharge Medication List Unchanged WELCOME WAGON HOSTESS meds that are or will be resumed Medication Status Sig Dispense Refill ??? multivitamin (THERAGRAN) tablet Active Take 1 tablet by mouth daily. Changed WELCOME WAGON HOSTESS meds Medication Status Sig Dispense Refill ??? [...] as needed for Sleep. 20 tablet 0 WELCOME WAGON HOSTESS meds that are DCed or will be [...] daily. Your Inpatient Medical Team [place] [facility] Name(s) of your inpatient provider(s): Drs. Andres Thompson, Cory Tellez, Ernesto Cardona, Gustabo Garza For questions regarding issues relating to your hospitalization on the Hospital Medicine Service, please contact your inpatient physician through the [facility] Melter Helper [phone]. Issues after hours and on weekends will be handled by the Hospitalist staff on-call. Your Primary Care Provider GINA MANZO MD [phone] documented in this encounter Medications at Time [...] spent >30 minutes (Day of Discharge Code 40691) involved in the final examination of the [...] Cory Tellez - 12/06/2012 8:35 AM EDT [facility] Medicine - Attending Daily Progress Note [...] history. 24 Hour Events/Subjective: H+H, vitals stable [place] negative For capsule endoscopy today to eval [...] friable mucosa throughout the colon, may be insurance account representative of por kee hypertension. Recommendation: - [...] cirrhosis c/h/o variceal sequential banding to eradication [id number], hx of UGIB without obvious clear source [...] faraz -Code status - Full; faraz Elissa ([phone]) is medical decision maker. I updated her today at bedside and spent >40 minutes with them today. -Disposition - pending medical improvement * Julienne Carlisle RN - 12/05/2012 5:16 PM EDT Initial Assessment/CRC Note Office of Care Management Alonzo Urbina 1955 [address] [facility] [address] Late Entry eDH reviewed. Report received from Dr. Tellez. Patient reviewed in multidisciplinary discharge rounds. S: This place is falling apart in my opinion. O: Introduced self and CRC role to patient and carlos Bowers; patient agrees to CRC services; pt currently lives with Elissa in own home in [place], [place]. CRC contact information left on patient [...] insured via Medicare A,B and D via [employer] and [place] [employer]. Transportation: Carlos will transport pt home. Anticipated Services at Discharge: will require re-assessment closer to time of d/c. Social Support Patient has given [facility] permission for carlos Parker ( cell [phone])to be contacted. A: medical plan still evolving. P: This bond underwriter or colleague from the Office of Care Management will continue to follow patient to assist w/ changing needs and collaborate w/ pt, medical team and family to formulate a plan for discharge; CRC may be reached on beeper [phone] or by leaving a voice mail message at ext. [phone]. See Care Management note in eDH for detailed VNA/DME information upon discharge. Medical Team: Hospitalist Service, pager [phone]. Julienne Carlisle, RN, MSN, [facility] Clinical Double End Tenoner Setter Office of Care Management Pager [phone] Phone: [phone] * Socorro Lomeli RN - 12/05/2012 3:09 [...] oozing or bleeding. - Normal examined duodenum. 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 [place] was poor prep with evidence of active [...] diuretics Recommendations reviewed with Primary team. Ariana uAstin MD Gastroenterology Fellow I have seen and [...] them as documented. Ernesto Cardona MD, MS pv installer tech Section of Gastroenterology and Hepatology * rFancia Nichole RN - 12/05/2012 12:40 PM EDT Report called to FREDY Niño. * Cory Tellez - 12/05/2012 8:25 AM EDT [facility] Medicine - Attending Daily Progress Note [...] cirrhosis c/h/o variceal sequential banding to eradication [id number], hx of UGIB without obvious clear source [...] fiance -Code status - Full; Elissa ruth ([phone]) is medical decision maker. I updated her today at bedside and spent >40 minutes with them today. -Disposition - pending medical improvement * Estela Barba, PT - 12/04/2012 2:47 PM EDT Physical therapy Referral received, Attempted initial visit, pt occupied with bathroom Will return tomorrow for evaluation ESTELA BARBA, PT * Cory Tellez - 12/04/2012 9:02 AM EDT [facility] Medicine - Attending Daily Progress Note [...] cirrhosis c/h/o variceal sequential banding to eradication [id number], hx of UGIB without obvious clear source [...] 01/11 -Code status - Full; Elissa ruth ([phone]) is medical decision maker. I updated her today at his request. -Disposition - pending medical improvement * Juliette Barreto, MELY - 12/04/2012 1:18 AM EDT Pt had a moderate loose BM at 0100. Black with streaks of adrianna red blood. * Cleopatra Camara, MELY - 12/03/2012 5:54 PM EDT Pt transferred to [address] from ICU accompanied by transportation staff. [...] Cory Tellez - 12/03/2012 8:47 AM EDT [facility] Medicine - Attending Daily Progress Note [...] TYPE MANUAL Component Value Range Specimen OD [id number] ABORh Type A Pos SELECTED CELL SCREEN [...] 01/11 -Code status - Full; Elissa ruth ([phone]) is medical decision maker. I updated her [...] ID: 57 y.o. Male [place] [facility] with GI bleed. History [...] + Extremities: No edema, peripheral pulses + RETAIL RESET MERCHANDISER: Awake, alert, oriented. No focal deficits. 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 male who [place] [facility] with GI bleeding History [...] friable mucosa throughout the colon, may be insurance account representative of por kee hypertension. Recommendation: - [...] cirrhosis c/h/o variceal sequential banding to eradication [id number], hx of UGIB without obvious clear source [...] follow-up with your primary care physician and roll edge stitcher hand. You will need a blood test the [...] scheduled with Dr. GINA MANZO MD at [address] [place] [address] on December 14 at 10:45 am. Future Appointments Date Time Provider Department Center 12/28/2012 8:45 AM 2, Ultrasound Rm [facility] None 12/28/2012 11:30 AM Paty Pedraza APRN [facility] Your Discharge Medication List Unchanged WELCOME WAGON HOSTESS meds that are or will be resumed Medication Status Sig Dispense Refill ??? multivitamin (THERAGRAN) tablet Active Take 1 tablet by mouth daily. Changed WELCOME WAGON HOSTESS meds Medication Status Sig Dispense Refill ??? [...] as needed for Sleep. 20 tablet 0 WELCOME WAGON HOSTESS meds that are DCed or will be [...] daily. Your Inpatient Medical Team at [facility] Name(s) of your inpatient provider(s): Drs. Andres Thompson, Cory Tellez, Ernesto Cardona, Gustabo Garza For questions regarding issues relating to your hospitalization on the Hospital Medicine Service, please contact your inpatient physician through the [facility] Melter Helper [phone]. Issues after hours and on weekends will be handled by the Hospitalist staff on-call. Your Primary Care Provider GINA MANZO MD [phone] General Instructions None Future Appointments and Orders Future Appointments: Provider: Department: Dept Phone: Center: 12/28/2012 8:45 AM Ultrasound 2 [facility] RAD ULTRASOUND [phone] None 12/28/2012 11:30 AM Paty Pedraza APRN Gastroenterology [phone] [facility] Discharge References/Attachments: Discharge References/Attachments None Inpatient Provider Contact Information: For questions regarding this document or issues relating to this hospitalization on the Medical Service, please contact your inpatient physician through the [facility] Melter Helper . Issues afterhours and on weekends will [...] MD - 12/05/2012 5:03 PM EDT [facility] Operative Note Patient Name: Alonzo Urbina : [id number] MR#: [id number] Case Date: 12/05/2012 Surgeon: Surgeon(s) and Role: [...] 0 minutes ESTELA BARBA, PT 12/05/2012 Pager: [phone] Physical Therapy Rehabilitation Department * Plan of [...] MD - 12/02/2012 11:59 PM EDT . [facility] Section of Gastroenterology and Hepatology Initial Inpatient Consultation Patient Name: Alonzo Urbina : 1955 Referring provider: Dr. Granados, medicine Date of Consult: 12/02/12 Reason for Consult: UGIB History of Present Illness: Alonzo Urbina is a 57 y.o. , [facility] s/o ETOH abuse (sober 12/21), [...] PM EDT Pt arrived via [facility] For evaluation of GI bleeding pt is alert oriented resp regular unlabored pt is dizzy when standing skin is cool and pale documented in this encounter Plan of Treatment Upcoming Encounters Date Type Department Care Team (Late st Contact Info) Description 2024 8:15 AM EST Office Visit Dermatology at [address] [place] [address] Jin Nunez MD [address], [place] [address] documented as of this encounter Procedures Procedure Name Priority Date/Time Associated Diagnosis Comments BAR MACHINE OPERATOR SCAN 12/08/2012 3:03 PM EDT LAB SCAN [...] in this encounter Results * SCAN DOC: BAR MACHINE OPERATOR (12/08/2012 3:03 PM EDT) Anatomical Region Laterality [...] Lab Cory Tellez MD HEMATOLOGY ORDERABLE S [facility] * VIDEO CAPSULE ENDOSCOPY (12/06/2012 8:00 AM EDT) VIDEO CAPSULE ENDOSCOPY [facility] Endoscopy ___ Patient Name: Alonzo Urbina ? Procedure Date: 12/06/2012 8:00 AM ? N: [id number] ? Date of : 1955 ? Age: 57 ? Order #: [id number] ? ___ Procedure: ? Video capsule endoscopy [...] supplied above were not validated at [facility]. Results [...] MD CHEMISTRY ORDERABL ES Performing Organization Address [facility] Co de Phone Number CERNER MILLENNIUM [...] Procedure Date: 12/05/2012 11:38 AM ? N: [id number] ? Date of : 1955 ? Age: 57 ? Order #: [id number] ? ___ Procedure: ? Colonoscopy Indications: ? Gastrointestinal occult blood loss Providers: ? Ernesto Cardona MD, Ariana Austin, ? , Davi Kapadia, RN, Janie Blood ? Marv, Photo Mask Inspector Referring : ? Medicines: ? Midazolam 4 [...] ? throughout the colon, may be ? insurance account representative of portal hypertension. Recommendation: ?- Although [...] supplied above were not validated at [facility]. Results [...] MD CHEMISTRY ORDERABL ES Performing Organization Address [facility]/ZIP Co de Phone Number CERNER MILLENNIUM [...] MD HEMATOLOGY ORDERABLE S Performing Organization Address [facility]/ZIP Co de Phone Number THEO POOLENNIUM * APTT (12/04/2012 3:13 PM EDT) Partial Thromboplastin Time 31 25 - 35 sec [facility] MILLENNIUM Comment: Recommended therapeutic PTT range for full dose unfractionated heparin is 80-114 seconds. Blood specimen (specimen) 12/04/2012 3:13 PM EDT 12/04/2012 3:26 PM EDT Narrative Resulting Agency Comment Spec In Lab Cory Tellez MD HEMATOLOGY ORDERABLE S Performing Organization Address [facility] de Phone Number THEO POOLENNIUM * (ABNORMAL) Hemoglobin and Hematocrit, blood (12/04/2012 3:13 PM EDT) Hemoglobin 8.4(L) 13.7 - 17.5 gm/dL [facility] MILLENNIUM Hematocrit 25.8(L) 40.0 - 51.0 % [facility] MILLENNIUM Blood specimen (specimen) 12/04/2012 3:13 PM EDT 12/04/2012 3:25 PM EDT Narrative Resulting Agency Comment Spec In Lab Cory Tellez MD HEMATOLOGY ORDERABLE S Performing Organization Address [facility] Co de Phone Number BANNERSIDDHARTH POOLENNIUM * (ABNORMAL) Basic Metabolic Panel (non-fasting) (12/04/2012 3:13 PM EDT) Glucose 118 60 - 199 mg/dL [facility] MILLENNIUM Comment:Diabetes: >=200 mg/d L plus symptoms Blood Urea Nitrogen 20 10 - 20 mg/dL [facility] MILLENNIUM Creatinine 0.94 0.80 - 1.50 mg/dL [facility] MILLENNIUM Comment: Please note that the pediatric reference intervals supplied above were not validated at [facility]. Results from pediatric patients should be interpreted in conjunction to the patient's age, height and muscle mass. Sodium 142 135 - 145 mmol/L [facility] Potassium 3.0(Criti agustin) 3.5 - 5.0 mmol/L [...] Tellez MD CHEMISTRY ORDERABLES Performing Organization Address [facility] Co de Phone [...] MD HEMATOLOGY ORDERABLE S Performing Organization Address City/[facility] Co de Phone Number THEO ARCOS * (ABNORMAL) Hemoglobin and Hematocrit, blood (12/04/2012 9:13 AM EDT) Hemoglobin 7.7(L) 13.7 - 17.5 gm/dL [facility] MILLENNIUM Hematocrit 23.9(L) 40.0 - 51.0 % [facility] MILLENNIUM Blood specimen (specimen) 12/04/2012 9:13 AM EDT 12/04/2012 9:19 AM EDT Narrative Resulting Agency Comment Spec In Lab Cory Tellez MD HEMATOLOGY ORDERABLE S Performing Organization Address [facility]/ZIP Co de Phone Number [facility] * (ABNORMAL) Hemoglobin and Hematocrit, blood (12/04/2012 6:32 AM EDT) Hemoglobin 8.0(L) 13.7 - 17.5 gm/dL [facility] MILLENNIUM Hematocrit 23.8(L) 40.0 - 51.0 % [facility] MILLENNIUM Blood specimen (specimen) 12/04/2012 6:32 AM EDT 12/04/2012 6:58 AM EDT Narrative Resulting Agency Comment Spec In Lab Cory Tellez MD HEMATOLOGY ORDERABLE S Performing Organization Address [facility] Co de Phone Number [facility] CORINEENNIUM * Ammonia (12/04/2012 6:32 AM EDT) Ammonia 30 16 - 60 mcmol/L [facility] MILLENNIUM Blood specimen (specimen) 12/04/2012 6:32 AM EDT 12/04/2012 6:57 AM EDT Narrative Resulting Agency Comment Spec In Lab Cory Tellez MD CHEMISTRY ORDERABLES Performing Organization Address [facility] de Phone Number [facility] CORINEENNIUM * (ABNORMAL) Hemoglobin and Hematocrit, blood (12/03/2012 11:08 PM EDT) Hemoglobin 8.2(L) 13.7 - 17.5 gm/dL [facility] MILLENNIUM Hematocrit 24.5(L) 40.0 - 51.0 % [facility] MILLENNIUM Blood specimen (specimen) 12/03/2012 11:08 PM EDT 12/03/2012 11:13 PM EDT Narrative Resulting Agency Comment Spec In Lab Cory Tellez MD HEMATOLOGY ORDERABLE S Performing Organization Address City/[facility] Co de Phone Number [facility] * (ABNORMAL) Hemoglobin and Hematocrit, blood (12/03/2012 4:50 PM EDT) Pathologist [facility] Hemoglobin 8.2(L) 13.7 - 17.5 gm/dL [facility] Hematocrit 25.1(L) 40.0 - 51.0 % [facility] Blood specimen (specimen) 12/03/2012 4:50 PM EDT 12/03/2012 4:50 PM EDT Narrative Resulting Agency Comment Spec In Lab Cory Tellez MD HEMATOLOGY ORDERABLE S Performing Organization Address [facility] de Phone Number [facility] * Transfuse RBC (12/03/2012 12:06 PM EDT) Cory Tellez MD NURSING TREATMENT OR DERABLES - BLOOD ADMIN * Prepare RBC (12/03/2012 9:40 AM EDT) Pathologist [facility] Dispensed? Yes [facility] Blood specimen (specimen) 12/03/2012 9:40 AM EDT 12/03/2012 9:36 AM EDT Cory Tellez MD BLOOD BANK PRODUCT O RDERABLES Performing Organization Address [facility] de Phone Number [facility] * POCT Glucose (12/03/2012 6:35 AM EDT) Pathologist [facility] Glucose, POC 129 60 - 199 mg/dL [facility] Comment: Supplemental ranges: <110 mg/dL before meals <200 mg/dL all other times of the day Blood specimen (specimen) 12/03/2012 6:35 AM EDT 12/03/2012 6:35 AM EDT Param Granados MD POINT OF CARE TEST ORDERABLES Performing Organization Address [facility] Phone Number [facility] * Differential, Automated (12/03/2012 6:33 AM EDT) [facility] Neutrophil % 56.9 34.0 - 71.0 % [facility] Neutrophil Absolute 2.67 1.50 - 6.30 x10(3)/mcL [...] EDT Param Granados MD HEMATOLOGY ORDERAB LES [facility] * (ABNORMAL) Basic Metabolic Panel (non-fasting) (12/03/2012 6:33 AM EDT) [facility] Glucose 128 60 - 199 mg/dL [facility] MILLENNIUM Comment:Diabetes: >=200 mg/d L plus symptoms Blood Urea Nitrogen 42(H) 10 - 20 mg/dL [facility] MILLENNIUM Creatinine 0.86 0.80 - 1.50 mg/dL [facility] MILL[facility]NIUM Comment: Please note that the pediatric reference intervals supplied above were not validated at [facility]. Results [...] Cell Volume 85.6 79.0 - 92.0 fL [facility] Mean Cell Hemoglobin 27.6 25.6 - 32.2 pg [facility] Mean Cell Hemoglobin Concentration 32.2 32.0 - 36.5 gm/dL [facility] Platelet 110(L) 145 - 370 x10(3)/mc L [facility] RDW Standard Deviation 42.2 35.0 - 46.0 fL [facility] RDW coefficient of variation 13.6 10.9 - 14.4 % [facility] COR[facility]NIUM Mean Platelet Volume 9.4 9.0 - 12.0 fL [facility] Blood specimen (specimen) 12/03/2012 6:33 AM EDT 12/03/2012 6:36 AM EDT Narrative Resulting Agency Comment Spec In Lab Param Granados MD HEMATOLOGY ORDERAB LES Performing Organization Address City/[facility] Co de Phone Number THEO ARCOS * Transfuse RBC (12/03/2012 5:33 AM EDT) Sharon Gill MD NURSING TREATMENT O RDERABLES - BLOOD ADMIN * Transfuse RBC (12/03/2012 5:33 AM EDT) Sharon Gill MD NURSING TREATMENT O RDERABLES - BLOOD ADMIN * POCT Glucose (12/03/2012 1:26 AM EDT) Glucose, POC 105 60 - 199 mg/dL [facility] Comment: Supplemental ranges: <110 mg/dL before meals <200 mg/dL all other times of the day Blood specimen (specimen) 12/03/2012 1:26 AM EDT 12/03/2012 1:26 AM EDT Param Granados MD POINT OF CARE TEST ORDERABLES Performing Organization Address [facility] Co de Phone Number [facility] * Prepare RBC (12/02/2012 11:00 PM EDT) Dispensed? Yes [facility] Blood specimen (specimen) 12/02/2012 11:00 PM EDT 12/02/2012 10:59 PM EDT Sharon Gill MD BLOOD BANK PRODUCT ORDERABLES Performing Organization Address [facility] de Phone Number THEO ARCOS * Selected [...] BANK LAB ORDE JARETH Performing Organization Address [facility] de Phone Number THEO FONTANAIUM * ABORh Type Manual (12/02/2012 10:30 PM EDT) Expires at 2359 on: [id number] THEO FONTANAIUM ABORH Type A Pos [facility] FONTANAIUM Blood specimen (specimen) 12/02/2012 10:30 PM EDT 12/02/2012 10:35 PM EDT Narrative Resulting Agency Comment Spec In Lab Sharon Gill MD BLOOD BANK LAB ORDE JARETH Performing Organization Address [facility] de Phone Number THEO FONTANAIUM * Differential, Automated (12/02/2012 10:30 PM EDT) Neutrophil % 61.7 34.0 - 71.0 % [facility] Neutrophil Absolute 3.64 1.50 - 6.30 x10(3)/mcL [facility] Lymph % 25.0 19.0 - 53.0 % [facility] MILLENNI[facility] Lymphocytes Abs 1.5 1.0 - 3.6 x10(3)/mcL [facility] Monocyte % 11.5 4.0 - 13.0 % [facility] Monocyte Abs 0.7 0.2 - 1.0 x10(3)/[facility] CERNER MILLENNIUM Eos % 1.0 0.0 - 7.0 % [facility] MILLENNIUM Eosinophils Abs 0.1 0.0 - 0.5 x10(3)/mcL [facility] Basophil % 0.5 0.0 - 2.0 % [facility] Baso Absolute 0.0 0.0 - 0.2 x10(3)/[facility] CERNER MILLENNIUM Immature Gran % 0.30 0.00 - 0.66 % [facility] Comment: Immature granulocytes(IG's)percentage and absolute count will include metamyelocytes, myelocytes, and promyelocytes. Blood smears from CBCs yielding IG's will be scanned manually for concordance. If this scan disagrees with the automated IG or if promyelocytes are noted, a manual differential will be performed. Immature Gran Absolute 0.02 0.00 - 0.05 x10(3)/[facility] THEO FONTANAIUM Blood specimen (specimen) 12/02/2012 10:30 PM EDT 12/02/2012 10:33 PM EDT Sharon Gill MD HEMATOLOGY ORDERABL ES Performing Organization Address [facility] Co de Phone Number THEO FONTANAIUM * Gold Tube HOLD (12/02/2012 10:30 PM EDT) Pathologist [facility] Gold Hold Sample in lab. THEO ARCOS Blood specimen (specimen) 12/02/2012 10:30 PM EDT 12/02/2012 10:33 PM EDT Sharon Gill MD CHEMISTRY ORDERABLE S Performing Organization Address City/[facility]/ZIP Co de Phone Number THEO FONTANAIUM * (ABNORMAL) APTT (12/02/2012 10:30 PM EDT) Partial Thromboplastin Time 36(H) 25 - 35 sec THEO POOLENNIUM Comment: Recommended therapeutic PTT range for full dose unfractionated heparin is 80-114 seconds. Blood specimen (specimen) 12/02/2012 10:30 PM EDT 12/02/2012 10:33 PM EDT Narrative Resulting Agency Comment Spec In Lab Sharon Gill MD HEMATOLOGY ORDERABL ES Performing Organization Address [facility] de Phone Number THEO POOLENNIUM * [...] ORDERABL ES Performing Organization Address [facility] de Phone Number THEO POOLENNIUM * (ABNORMAL) Hepatic Function Panel (12/02/2012 [...] MD CHEMISTRY ORDERABLE S Performing Organization Address [facility]/ZIP Co de Phone Number [facility] * Glucose, random (12/02/2012 10:30 PM EDT) Glucose 121 60 - 199 mg/dL [facility] Comment:Diabetes: >=200 mg/d L plus symptoms Blood specimen (specimen) 12/02/2012 10:30 PM EDT 12/02/2012 10:33 PM EDT Narrative Resulting Agency Comment Spec In Lab Sharon Gill MD CHEMISTRY ORDERABLE S Performing Organization Address [facility] Hospital/[facility] de Phone Number [facility] * (ABNORMAL) Creatinine (12/02/2012 10:30 PM EDT) Creatinine 0.76(L) 0.80 - 1.50 mg/dL [facility] Comment: Please note that the pediatric reference intervals supplied above were not validated at [facility] [place] Results from pediatric patients should be interpreted in conjunction to the patient's age, height and muscle mass. Est Glomerular Filtration Rate >60 >=60 [facility] Comment: This estimated GFR (eGFR) value was [...] MD CHEMISTRY ORDERABLE S Performing Organization Address [facility] Co de Phone Number [facility] * (ABNORMAL) BUN (12/02/2012 10:30 PM EDT) Blood Urea Nitrogen 41(H) 10 - 20 mg/dL [facility] Blood specimen (specimen) 12/02/2012 10:30 PM EDT 12/02/2012 10:33 PM EDT Narrative Resulting Agency Comment Spec In Lab Sharon Gill MD CHEMISTRY ORDERABLE S [facility] * (ABNORMAL) Electrolytes panel (12/02/2012 10:30 PM EDT) Pathologist [facility] Sodium 140 135 - 145 mmol/L CERNER [...] MD CHEMISTRY ORDERABLE S Performing Organization Address [facility]/State/ZIP Co de Phone Number [facility] * (ABNORMAL) CBC (with Diff) (12/02/2012 10:30 PM EDT) Pathologist [facility] White Blood Cell 5.9 4.0 - 10.0 [...] at 2319, Until 12/02/12 at 2330, [place]: cabinet override ondansetron (ZOFRAN) injection 4 mg [...] at 100 mL/hr, Intravenous, CONTINUOUS, Starting on [place] 12/03/12 at 0200, Until Tue12/03/12 at 0937 Rate/Dose Verify 12/03/2012 8:00 AM EDT 1,000 mLs 100 mL/hr [facility] 12/03/2012 2:00 AM EDT 1,000 mLs 100 mL/hr sodium chloride 0.9% infusion 100 mL/hr, Intravenous, CONTINUOUS, Starting on Tue12/03/12 at 1000, Until Tue12/03/12 at 1359 [facility] 12/03/2012 2:00 PM EDT 100 mL/hr [...] Tue12/04/12 at 1045, Until Tue12/04/12 at 1856 [facility] 12/04/2012 1:18 PM EDT 125 mL/hr [...] Provider: Juliette Barreto RN)1852 (Given - Provider: Scoorro Lomeli RN) 0623 (Given - Provider: Radha [...] ineffective documented in this encounter Care Teams Billboard Erector Helper Relationship Specialty Start Date End Date Gina Manzo MD [address] [place] [address] PCP - General 03/03/10 02/12/19 documented as of this encounter
--- OUTSIDE RECORDS SUMMARY | 2024-01-20 15:49 | XMS_ITS | Encounter Summary ---
[place] [address] Care Team Providers Care Director Of Accounts Payable Name Role Phone George Lou Primary Care Provider [phone] Reason for Visit * Reason Comments Follow-up Encounter Details Date Type Department Care Team (Late st Contact Info) Description 05/20/2023 8:15 AM EST Office Visit Dermatology at [address] [place] [address] Jin Nunez MD [address] [facility], [place] [address] History of basal cell carcinoma; Nevus Social [...] Center 3. History of growing up in [place] and many years spent in [place] 4. 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 Alonzo follows up for repeat skin checkup. [...] 8:15 AM EST Office Visit Dermatology at [place] [address] [facility] [place] [address] Jin Nunez MD [address], [place] [address] documented as of this encounter Visit Diagnoses Diagnosis History of basal cell carcinoma Personal history of other malignant neoplasm of skin Nevus Benign neoplasm of skin, site unspecified documented in this encounter Care Teams Director Of Accounts Payable Relationship Specialty Start Date End Date George Lou PA [address] [place] [address] PCP - General Internal Medicine 11/12/22 documented as of this encounter
--- OUTSIDE RECORDS SUMMARY | 2024-01-20 15:49 | XMS_ITS | Encounter Summary ---
[place] [address] Care Team Providers Care Spot Welder Line Name Role Phone George Lou Primary Care Provider [phone] Encounter Details Date Type Department Care Team [...] 8:15 AM EST Office Visit Dermatology at [place] [address] [place] [address] Jin Nunez MD [address], [place] [address] documented as of this encounter Visit Diagnoses Not on filedocumented in this encounter Care Teams Spot Welder Line Relationship Specialty Start Date End Date George Lou PA [address] [place] [address] PCP - General Internal Medicine 11/12/22 documented as of this encounter
--- OUTSIDE RECORDS SUMMARY | 2024-01-20 15:49 | XMS_ITS | Encounter Summary ---
[place] [address] Care Team Providers Care Engineering Document Control Clerk Name Role Phone KayodeKatia arroyo SAMANTHA Primary Care Provider [phone] Reason for Visit * Reason Comments Follow-up Encounter Details Date Type Department Care Team (Late st Contact Info) Description 05/28/2022 8:30 AM EST Office Visit Dermatology at [address] [place] [address] Jin Nunez MD [address] [facility], [place] [address] History of basal cell carcinoma; Nevus Social [...] Center 3. ??History of growing up in [place] and many years spent in [place] 4. 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 Physical examination reveals a pleasant 66 almost [...] 8:15 AM EST Office Visit Dermatology at [place] [address] [place] [address] Jin Nunez MD [address] [facility], [place] [address] documented as of this encounter Visit Diagnoses Diagnosis History of basal cell carcinoma Personal history of other malignant neoplasm of skin Nevus Benign neoplasm of skin, site unspecified documented in this encounter Care Teams Engineering Document Control Clerk Relationship Specialty Start Date End Date Katia Blanco APRN [address] [place] [address] PCP - General Family Medicine 02/13/19 11/11/22 documented as of this encounter
--- OUTSIDE RECORDS SUMMARY | 2024-01-20 15:49 | XMS_ITS | Encounter Summary ---
Author Organization [facility] [place] [address] Care Team Providers Care Quality Assurance Director Name Role Phone George Lou Primary Care Provider [phone] Encounter Details Date Type Department Care Team (Late st Contact Info) Description 11/12/2022 Refill Dermatology at [address] [phone] Francai Pichardo RN Social History Tobacco Use Types [...] 8:15 AM EST Office Visit Dermatology at [address] [phone] Jin Nunez MD [address] [facility], [place] [address] documented as of this encounter Visit Diagnoses Not on filedocumented in this encounter Care Teams Quality Assurance Director Relationship Specialty Start Date End Date George Lou PA [address] [place], [place] [id number] PCP - General Internal Medicine 11/12/22 documented as of this encounter
--- OUTSIDE RECORDS SUMMARY | 2024-01-20 15:49 | XMS_ITS | Encounter Summary ---
[place] [address] Care Team Providers Care Solar Panel Installation Supervisor Name Role Phone George Lou Primary Care Provider [phone] Reason for Visit * Reason Comments Follow-up Encounter Details Date Type Department Care Team (Late st Contact Info) Description 11/12/2022 9:00 AM EDT Office Visit Dermatology at [address] [address] Jin Nunez MD [address] [facility], [place] [address] History of basal cell carcinoma; Nevus Social [...] Center 3. History of growing up in [place] and many years spent in [place] 4. 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 I has not noticed any new lesions of concern. 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 Physical examination reveals a pleasant seven 67-year-old [...] EST Office Visit Dermatology at [place] [address] [place] [address] Jin Nunez MD [address] [facility], [place] [address] documented as of this encounter Visit Diagnoses Diagnosis History of basal cell carcinoma Personal history of other malignant neoplasm of skin Nevus Benign neoplasm of skin, site unspecified documented in this encounter Care Teams Solar Panel Installation Supervisor Relationship Specialty Start Date End Date George Lou PA [address] [place] [address] PCP - General Internal Medicine 11/12/22 documented as of this encounter
--- OUTSIDE RECORDS SUMMARY | 2024-01-20 15:49 | XMS_ITS | Encounter Summary ---
[place] [address] Care Team Providers Care Travel Administrator Name Role Phone George Lou Primary Care Provider [phone] Encounter Details Date Type Department Care Team [...] 8:15 AM EST Office Visit Dermatology at [place] [address] [place] [address] Jin Nunez MD [address], [place] [address] documented as of this encounter Visit Diagnoses Not on filedocumented in this encounter Care Teams Travel Administrator Relationship Specialty Start Date End Date George Lou PA Cher[address] [facility] [place] [address] PCP - General Internal Medicine 11/12/22 documented as of this encounter
--- OUTSIDE RECORDS SUMMARY | 2024-01-20 15:49 | XMS_ITS | Clinical Summary ---
Author Organization [facility] [place] [address] Care Team Providers Care Hoseman Name Role Phone George Lou Primary Care Provider [phone] Allergies Active Allergy Reactions Criticality Noted Date [...] 8:15 AM EST Office Visit Dermatology at [place] [address] [facility] [place] [address] Jin Nunez MD [address] [address], [place] [address] Health Maintenance Due Date Last Done Comments [...] COLONOSCOPY (12/05/2012 11:38 AM EDT) COLONOSCOPY [facility] Endoscopy ___ Patient Name: Alonzo Urbina ? Procedure Date: 12/05/2012 11:38 AM ? Date of : 1955 ? Age: 57 ? Order #: [id number] ? ___ Procedure: ? Colonoscopy Indications: ? Gastrointestinal occult blood loss Providers: ? Ernesto Cardona MD, Ariana Austin, ? , Davi Kapadia RN, Janie Blood ? Marv, Dividend Deposit Entry Clerk Referring : ? Medicines: ? Midazolam 4 [...] ? throughout the colon, may be ? software support representative of portal hypertension. Recommendation: ?- [...] Documents on File Type Date Recorded Patient Solid Surface Fabricator Expl kody Advance Directives and Mackenzie mclaughlin Will 06/10/2010 10:34 AM * Full Code (Latest Code Status on File) Date Activated Date Inactivated Comments 12/03/2012 1:42 AM 12/07/2012 2:39 PM Question Answer Comments Order Status: Initial Order Does patient have decision m aking capacity? Yes, Order is based on Patients wishes. Care Teams Hoseman Relationship Specialty Start Date End Date George Lou PA [address] [place], [place] [id number] PCP - General Internal Medicine 11/12/22
--- OUTSIDE RECORDS SUMMARY | 2024-01-20 15:49 | XMS_ITS | Encounter Summary ---
[place] [address] Care Team Providers Care Aligner Barrel And Receiver Name Role Phone KayodeKatia arroyo SAMANTHA Primary Care Provider [phone] Reason for Visit * Reason Comments Skin Lesion Encounter Details Date Type Department Care Team (Late st Contact Info) Description 11/20/2021 9:00 AM EDT Office Visit Dermatology at [place] [address] [place] [address] Jin Nunez MD [address], [place] [address] History of basal cell carcinoma; Nevus Social [...] of this encounter Progress Notes * Jin Nuenz MD - 11/20/2021 9:00 AM EDT Problem: 1. Repeat skin checkup 2. 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 History of growing up in [place] and many years spent in [place] Alonzo follows up after last seeing me in December 2019. About 7 months ago he noted the development of a dark spot on his supra glabellar forehead. He reminds me that he grew up in [place] then spent a number of years living in [place] near [place]. He is status post Mohs surgery as [...] 8:15 AM EST Office Visit Dermatology at [place] [address] [place] [phone] Jin Nunez MD [address] [facility], [place] [address] documented as of this encounter Visit Diagnoses Diagnosis History of basal cell carcinoma Personal history of other malignant neoplasm of skin Nevus Benign neoplasm of skin, site unspecified documented in this encounter Care Teams Aligner Barrel And Receiver Relationship Specialty Start Date End Date Katia Blanco APRN [address] [place] [address] PCP - General Family Medicine 02/13/19 11/11/22 documented as of this encounter
--- OUTSIDE RECORDS SUMMARY | 2024-01-20 15:50 | XMS_ITS | Encounter Summary ---
[place] [address] Care Team Providers Care Detector Car Operator Name Role Phone Laurie Wiggins MD Primary Care Provider [phone] Reason for Visit * Reason Comments Follow-up Encounter Details Date Type Department Care Team (Late st Contact Info) Description 09/27/2012 10:30 AM EDT Follow-Up [place] [address] Paty Pedraza APRN [facility] [place] [address] Anemia (Primary Dx) Discharge Disposition: Home Social [...] blood. serial variceal band ligation ( at [facility] [place] and was banded in December 2007 (6 [...] 8:15 AM EST Office Visit Dermatology at [place] [address] [facility] [place] [address] Jin Nunez MD [address] [facility], [place] [address] documented as of this encounter Procedures Procedure Name Priority Date/Time Associated Diagnosis Comments IRON AND TIBC Routine 09/27/2012 11:41 AM EDT Anemia FERRITIN Routine 09/27/2012 11:41 AM EDT Anemia documented in this encounter Results * Ferritin (09/27/2012 11:41 AM EDT) Ferritin 36 30 - 400 ng/mL [facility]ER [facility]ILL[facility] Comment: Pediatric reference ranges not verified at [facility] [place], interpret with caution. Reference ranges for females [...] unspecified documented in this encounter Care Teams Detector Car Operator Relationship Specialty Start Date End Date Laurie Wiggins MD [address] [place] [address] PCP - General 03/03/10 02/12/19 documented as of this encounter
--- OUTSIDE RECORDS SUMMARY | 2024-01-20 15:50 | XMS_ITS | Encounter Summary ---
[place] [address] Care Team Providers Care Manager Revenue Name Role Phone Laurie Wiggins MD Primary Care Provider [phone] Encounter Details Date Type Department Care Team (Late st Contact Info) Description 10/02/2012 Telephone [place] [phone] Jacinta Nunes RN Social History Tobacco Use [...] iron supplementation. He uses [facility] in [place]. Lab results from 09/27 are posted in EDH. Patient is also inquiring if he will need another procedure to address GI bleeding. Will forward to Sherwin Pedraza NP documented in this encounter Plan of Treatment Upcoming Encounters Date Type Department Care Team (Late st Contact Info) Description 2024 8:15 AM EST Office Visit Dermatology at [address] [phone] Jin Nunez MD [address], [place] [address] documented as of this encounter Visit Diagnoses Not on filedocumented in this encounter Care Teams Manager Revenue Relationship Specialty Start Date End Date Laurie Wiggins MD [address] [place] [address] PCP - General 03/03/10 02/12/19 documented as of this encounter
--- OUTSIDE RECORDS SUMMARY | 2024-01-20 15:50 | XMS_ITS | Encounter Summary ---
[place] [address] Care Team Providers Care Guest Relations Coordinator Name Role Phone Laurie Wiggins MD Primary Care Provider [phone] Encounter Details Date Type Department Care Team (Late st Contact Info) Description 09/19/2012 4:15 PM EDT - 09/19/2012 4:45 PM EDT [place] [address] Boo Browne MD [facility] [place] [address] EGD, UPPER GI ENDOSCOPY (WRVU 2.09) Social [...] occurs, please contact your MD/ Please call [phone] before 5pm with problems, questions or concerns. After 5pm call [phone] and ask to speak with the garment sewer hand university relations director. Discharge instructions reviewed with patient who expresses [...] Browne MD - 09/19/2012 4:28 PM EDT [facility] Operative Note Patient Name: Alonzo Urbina : [id number] MR#: [id number] Case Date: 09/19/2012 Surgeon: Surgeon(s) and Role: [...] 8:15 AM EST Office Visit Dermatology at [place] [address] [facility] [place] [address] Jin Nunez MD [address] [facility], [place] [address] documented as of this encounter Procedures Procedure Name Priority Date/Time Associated Diagnosis Comments EGD, UPPER GI ENDOSCOPY (WRVU 2.09) 09/19/2012 4:17 PM EDT Cirrhosis of liver UPPER GI ENDOSCOPY Routine 09/19/2012 3: 51 PM EDT documented in this encounter Results * UPPER GI ENDOSCOPY (09/19/2012 3:51 PM EDT) [facility] Signature UPPER GI ENDOSCOPY [facility] Endoscopy Patient Name: Alonzo Urbina ? Procedure Date: 09/19/2012 3:51 PM ? N: [id number] ? Date of : 1955 ? Age: 57 ? Order #: [id number] ? Procedure: ? Upper GI endoscopy Indications: ? Melena, Follow-up of esophageal ? varices Providers: ? Boo Browne MD, Luis Fernando Caban ? MELY Elizondo, Joanne Wu RN Referring : ?Laurie Wiggins MD, Paty Rivera ? Ray, LABORER/GRADE CHECK Medicines: ? Midazolam 4 mg IV, Fentanyl [...] moderate sedation)1623 (Given - Provider: Luis Fernando lEizondo RN - Comment: sleepy but awake after [...] time) documented in this encounter Care Teams Guest Relations Coordinator Relationship Specialty Start Date End Date Laurie Wiggins MD [address] [place] [address] PCP - General 03/03/10 02/12/19 documented as of this encounter
--- OUTSIDE RECORDS SUMMARY | 2024-01-20 15:50 | XMS_ITS | Encounter Summary ---
Author Organization [facility] Address [facility] [place] [address] Care Team Providers Care Senior Compensation Consultant Name Role Phone Laurie Wiggins MD Primary Care Provider [phone] Encounter Details Date Type Department Care Team (Latest Contact Info) Description 12/02/2012 8:25 PM EDT - 12/02/2012 10:03 PM EDT Hospital Encounter [place] [address] Man Juárez MD [facility] [place] [address] Discharge [place]: [place] [facility] Social History Tobacco Use Types Packs/Day Years [...] 8:15 AM EST Office Visit Dermatology at [place] [address] [facility] [place] [address] Jin Nunez MD [address] [facility], [place] [address] documented as of this encounter Visit Diagnoses Not on filedocumented in this encounter Care Teams Senior Compensation Consultant Relationship Specialty Start Date End Date Laurie Wiggins MD [address] [place] [address] PCP - General 03/03/10 02/12/19 documented as of this encounter
--- OUTSIDE RECORDS SUMMARY | 2024-01-20 15:50 | XMS_ITS | Encounter Summary ---
[place] [address] Care Team Providers Care Toll Mechanic Name Role Phone Gina Manzo MD Primary Care Provider [phone]- [phone] Encounter Details Date Type Department Care Team (Late st Contact Info) Description 12/03/2012 11:20 AM EDT - 12/03/2012 11:50 AM EDT [place] [address] Gustabo Garza MD [facility] DR [place] [address] EGD, UPPER GI ENDOSCOPY (WRVU 2.09) Social [...] follow-up with your primary care physician and cover cutter machine. You will need a blood test the [...] with Dr. GINA MANZO MD at [address] [place] [id number] on December 14 at 10:45 am. Future Appointments Date Time Provider Department Center 12/28/2012 8:45 AM 2, Ultrasound [facility]m [facility] None 12/28/2012 11:30 AM Paty Pedraza APRN [facility] [place] 4L [place] [facility] Your Discharge Medication List Unchanged PATROL SERGEANT SHERIFF'S OFFICE meds that are or will be resumed Medication Status Sig Dispense Refill ??? multivitamin (THERAGRAN) tablet Active Take 1 tablet by mouth daily. Changed PATROL SERGEANT SHERIFF'S OFFICE meds Medication Status Sig Dispense Refill ??? [...] as needed for Sleep. 20 tablet 0 PATROL SERGEANT SHERIFF'S OFFICE meds that are DCed or will be [...] mouth daily. Your Inpatient Medical Team at [facility] Name(s) of your inpatient provider(s): Drs. Andres Thompson, Cory Tellez, Ernesto Cardona, Gustabo Garza For questions regarding issues relating to your hospitalization on the Hospital Medicine Service, please contact your inpatient physician through the [facility] Athletic Coach [phone]. Issues after hours and on weekends will be handled by the Hospitalist staff on-call. Your Primary Care Provider GINA MANZO MD [phone] documented in this encounter Medications at Time [...] spent >30 minutes (Day of Discharge Code 36390) involved in the final examination of the [...] Cory Tellez - 12/06/2012 8:35 AM EDT [facility] - Attending Daily Progress Note [...] history. 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 I updated her today at bedside and spent >40 minutes with them today. -Disposition - pending medical improvement * Julienne Carlisle RN - 12/05/2012 5:16 PM EDT Initial Assessment/CRC Note Office of Care Management Alonzo Urbina 1955 [address] [facility] [address] Late Entry eDH reviewed. Report received from Dr. Tellez. Patient reviewed in multidisciplinary discharge rounds. S: This place is falling apart in my opinion. O: Introduced self and CRC role to patient and carlos Bowers; patient agrees to CRC services; pt currently lives with Elissa in own home in [place], [place]. CRC contact information left on patient [...] insured via Medicare A,B and D via [employer] and [place] [employer]. Transportation: Carlos will transport pt home. Anticipated Services at Discharge: will require re-assessment closer to time of d/c. Social Support Patient has given [facility] permission for carlos Parker ( cell [phone])to be contacted. A: medical plan still evolving. P: This screen writer or colleague from the Office of Care Management will continue to follow patient to assist w/ changing needs and collaborate w/ pt, medical team and family to formulate a plan for discharge; CRC may be reached on [phone] [phone] or by leaving a voice mail message at [phone]. [phone]. See Care Management note in eDH for detailed VNA/DME information upon discharge. Medical Team: Hospitalist Service, pager [phone]. Julienne Carlisel, RN, MSN, [facility] Clinical Ict Systems Test Engineer Office of Care Management Pager [phone] Phone: [phone] * Socorro Lomeli RN - 12/05/2012 3:09 [...] oozing or bleeding. - Normal examined duodenum. 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 [place] was poor prep with evidence of active [...] them as documented. Ernesto Cardona MD, MS scallop dredger Section of Gastroenterology and Hepatology * Francia Nichole RN - 12/05/2012 12:40 PM EDT Report called to FREDY Niño. * Cory Tellez - 12/05/2012 8:25 AM EDT [facility] - Attending Daily Progress Note [...] cirrhosis c/h/o variceal sequential banding to eradication [id number], hx of UGIB without obvious clear source [...] fiance -Code status - Full; Elissa ruth ([phone]) is medical decision maker. I updated her today at bedside and spent >40 minutes with them today. 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 I updated her today at his request. -Disposition - pending medical improvement * Juliette Barreto, MELY - 12/04/2012 1:18 AM EDT Pt had a moderate loose BM at 0100. Black with streaks of adrianna red blood. * Cleopatra Camara, MELY - 12/03/2012 5:54 PM EDT Pt transferred to [address] from ICU accompanied by transportation staff. [...] Cory Tellez - 12/03/2012 8:47 AM EDT [facility] - Attending Daily Progress Note [...] TYPE MANUAL Component Value Range Specimen OD [id number] ABORh Type A Pos SELECTED CELL SCREEN [...] 01/11 -Code status - Full; Elissa ruth ([phone]) is medical decision maker. I updated her [...] behavior ID: 57 y.o. Male presents to [facility] with GI bleed. History [...] + Extremities: No edema, peripheral pulses + CLINICAL PHARMACY TECHNICIAN: Awake, alert, oriented. No focal deficits. Laboratory [...] 12/08/2012 3:03 PM EDTAssociated Order(s): SCAN DOC: TELEVISION PRESENTER * Provider, Scanning - 12/08/2012 2:46 PM [...] a 57 y.o. 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 You will need a blood test the [...] scheduled with Dr. GINA MANZO MD at [address] [place] [address] on , December 14 at 10:45 am. Future Appointments Date Time Provider Department Center 12/28/2012 8:45 AM 2, Ultrasound Rm [facility] None 12/28/2012 11:30 AM Paty Pedraza APRN [facility] Your Discharge Medication List Unchanged PATROL SERGEANT SHERIFF'S OFFICE meds that are or will be resumed Medication Status Sig Dispense Refill ??? multivitamin (THERAGRAN) tablet Active Take 1 tablet by mouth daily. Changed PATROL SERGEANT SHERIFF'S OFFICE meds Medication Status Sig Dispense Refill ??? [...] as needed for Sleep. 20 tablet 0 PATROL SERGEANT SHERIFF'S OFFICE meds that are DCed or will be [...] mouth daily. Your Inpatient Medical Team at [facility] Name(s) of your inpatient provider(s): Drs. Andres Thompson, Cory Tellez, Ernesto Cardona, Gustabo Garza For questions regarding issues relating to your hospitalization on the Hospital Medicine Service, please contact your inpatient physician through the [facility] Athletic Coach [phone]. Issues after hours and on weekends will be handled by the Hospitalist staff on-call. Your Primary Care Provider GINA MANZO MD [phone] General Instructions None Future Appointments and Orders Future Appointments: Provider: Department: Dept Phone: Center: 12/28/2012 8:45 AM Ultrasound Rm 2 [facility] ULTRASOUND [phone] None 12/28/2012 11:30 AM Paty Pedraza APRN Gastroenterology [phone] [place] [facility] Discharge References/Attachments: Discharge References/Attachments None Inpatient Provider Contact Information: For questions regarding this document or issues relating to this hospitalization on the Medical Service, please contact your inpatient physician through the [facility] Athletic Coach . Issues afterhours and on weekends will [...] study. Patient has taken the 2000cc of Awdio ordered this afternoon. Medicated for nausea per JUN. * Op Note - Ernesto Cardona MD - 12/05/2012 5:03 PM EDT [facility] Operative Note Patient Name: Alonzo Urbina : [id number] MR#: [id number] Case Date: 12/05/2012 Surgeon: Surgeon(s) and Role: [...] 0 minutes ESTELA BARBA, PT 12/05/2012 Pager: [phone] Physical Therapy Rehabilitation Department * Plan of [...] MD - 12/02/2012 11:59 PM EDT . [facility] Section of Gastroenterology and Hepatology Initial Inpatient Consultation Patient Name: Alonzo Urbina : 1955 Referring provider: Dr. Granados, medicine Date of Consult: 12/02/12 Reason for Consult: UGIB History of Present Illness: Alonzo Urbina is a 57 y.o. WM, [facility] s/o ETOH abuse (sober 12/21), [...] day denies daily use. Had colonoscopy at [facility] reportedly WNL. Last EGD09/21 Dr. Browne, [...] PM EDT Pt arrived [facility]. For evaluation of GI bleeding pt is alert oriented resp regular unlabored pt is dizzy when standing skin is cool and pale documented in this encounter Plan of Treatment Upcoming Encounters Date Type Department Care Team (Late st Contact Info) Description 2024 8:15 AM EST Office Visit Dermatology at [place] [address] [place] [address] Jin Nunez MD [address], [place] [address] documented as of this encounter Procedures Procedure Name Priority Date/Time Associated Diagnosis Comments TELEVISION PRESENTER SCAN 12/08/2012 3:03 PM EDT LAB SCAN [...] in this encounter Results * SCAN DOC: TELEVISION PRESENTER (12/08/2012 3:03 PM EDT) Anatomical Region Laterality [...] MD HEMATOLOGY ORDERABLE S Performing Organization Address City/State/[facility] [...] (12/06/2012 8:00 AM EDT) VIDEO CAPSULE ENDOSCOPY [facility] Endoscopy ___ Patient Name: Alonzo Urbina ? Procedure Date: 12/06/2012 8:00 AM ? Date of : 1955 ? Age: 57 ? Order #: [id number] ? ___ Procedure: ? Video capsule endoscopy [...] EDT Param Granados MD HEMATOLOGY ORDERAB LES [facility] CORINEENNIUM * (ABNORMAL) Hepatic Function Panel (12/06/2012 [...] In Lab Cory Tellez MD CHEMISTRY ORDERABLES [facility] FlextownJUANITOIUM * (ABNORMAL) Basic Metabolic Panel (non-fasting) (12/06/2012 6:12 AM EDT) Glucose 126 60 - 199 mg/dL CERNER MILLENNIUM Comment:Diabetes: >=200 mg/d L plus symptoms Blood Urea Nitrogen 8(L) 10 - 20 mg/dL CERNER MILLENNIUM Creatinine 0.84 0.80 - 1.50 mg/dL CERNER MILLENNIUM Comment: Please note that the pediatric reference intervals supplied above were not validated at [facility]. Results from pediatric patients [...] * COLONOSCOPY (12/05/2012 11:38 AM EDT) COLONOSCOPY [facility] Endoscopy ___ Patient Name: Alonzo Urbina ? Procedure Date: 12/05/2012 11:38 AM ? Date of : 1955 ? Age: 57 ? Order #: [id number] ? ___ Procedure: ? Colonoscopy Indications: ? Gastrointestinal occult blood loss Providers: ? Ernesto Cardona MD, Ariana Austin, ? , Davi Kapadia RN, Janie Blood ? Marv, Maxillofacial Prosthetics Dentist Referring MD: ? Medicines: ? Midazolam 4 [...] ? throughout the colon, may be ? manufacturing sales representative of portal hypertension. Recommendation: ?- [...] EDT Param Granados MD HEMATOLOGY ORDERAB LES [facility] * (ABNORMAL) Basic Metabolic Panel (non-fasting) (12/05/2012 5:39 AM EDT) Pathologist [facility] Glucose 135 60 - 199 mg/dL CERNER MILLENNIUM Comment:Diabetes: >=200 mg/d L plus symptoms Blood Urea Nitrogen 14 10 - 20 mg/dL CERNER MILLENNIUM Creatinine 0.92 0.80 - 1.50 mg/dL CERNER MILLENNIUM Comment: Please note that the pediatric reference intervals supplied above were not validated at [facility]. Results from pediatric patients [...] Lab Param Granados MD HEMATOLOGY ORDERAB LES [facility] ADDIIUM * (ABNORMAL) Hemoglobin and Hematocrit, blood (12/04/2012 9:55 PM EDT) Hemoglobin 7.6(L) 13.7 - 17.5 gm/dL [facility] CORINEENNIUM Hematocrit 22.9(L) 40.0 - 51.0 % [facility] POOLENNIUM Blood specimen (specimen) 12/04/2012 9:55 PM EDT 12/04/2012 10:07 PM EDT Narrative Resulting Agency Comment Spec In Lab Cory Tellez MD HEMATOLOGY ORDERABLE S [facility] JOSSELYN * APTT (12/04/2012 3:13 PM EDT) Partial Thromboplastin Time 31 25 - [address] [address] [address]ERSIDDHARTH POOLENNIUM Comment: Recommended therapeutic PTT [...] MD HEMATOLOGY ORDERABLE S Performing Organization Address [facility] Co de Phone Number CERSIDDHARTH POOLENNIUM * (ABNORMAL) Basic Metabolic Panel (non-fasting) (12/04/2012 3:13 PM EDT) Glucose 118 60 - 199 mg/dL CERNER MILLENNIUM Comment:Diabetes: >=200 mg/d L plus symptoms Blood Urea Nitrogen 20 10 - 20 mg/dL CERNER MILLENNIUM Creatinine 0.94 0.80 - 1.50 mg/dL CERNER MILLENNIUM Comment: Please note that the pediatric reference intervals supplied above were not validated at [facility]. Results from pediatric patients [...] Tellez MD CHEMISTRY ORDERABLES Performing Organization Address City/[facility] de Phone Number THEO FONTANAIUM * (ABNORMAL) Prothrombin Time (12/04/2012 3:13 PM EDT) Prothrombin Time 16.2(H) 12.0 - 15.0 sec CERNER MILLENNIUM Comment: [facility] Transfusion Committee Guidelines: INR less than [...] MD HEMATOLOGY ORDERABLE S Performing Organization Address [facility] de Phone Number THEO POOLENNIUM * (ABNORMAL) Hemoglobin and Hematocrit, blood (12/04/2012 9:13 AM EDT) Hemoglobin 7.7(L) 13.7 - 17.5 gm/dL CERNER MILLENNIUM Hematocrit 23.9(L) 40.0 - 51.0 % CERNER MILLENNIUM Blood specimen (specimen) 12/04/2012 9:13 AM EDT 12/04/2012 9:19 AM EDT Narrative Resulting Agency Comment Spec In Lab Cory Tellez MD HEMATOLOGY ORDERABLE S Performing Organization Address [facility] Co [...] MD HEMATOLOGY ORDERABLE S Performing Organization Address [facility]/ZIP Co de Phone Number CERSIDDHARTH [...] OF CARE TEST ORDERABLES Performing Organization Address City/[facility]/ZIP Co de Phone Number THEO [...] EDT Param Granados MD HEMATOLOGY ORDERAB LES [facility] [place]ENNIUM * (ABNORMAL) Basic Metabolic Panel (non-fasting) (12/03/2012 6:33 AM EDT) Glucose 128 60 - 199 mg/dL CERNER MILLENNIUM Comment:Diabetes: >=200 mg/d L plus symptoms Blood Urea Nitrogen 42(H) 10 - 20 mg/dL CERNER MILLENNIUM Creatinine 0.86 0.80 - 1.50 mg/dL CERNER MILLENNIUM Comment: Please note that the pediatric reference intervals supplied above were not validated at [facility]. Results from pediatric patients [...] MD HEMATOLOGY ORDERAB LES Performing Organization Address [facility] de Phone Number THEO ARCOS * Transfuse RBC (12/03/2012 5:33 AM EDT) Sharon Gill MD NURSING TREATMENT O RDERABLES - BLOOD ADMIN * Transfuse RBC (12/03/2012 5:33 AM EDT) Sharon Gill MD NURSING TREATMENT O RDERABLES - BLOOD ADMIN * POCT Glucose (12/03/2012 1:26 AM EDT) Glucose, POC 105 60 - 199 mg/dL [facility]OLKING[facility] CENTERJHONATHAN Comment: Supplemental ranges: <110 mg/dL before meals <200 mg/dL all other times of the day Blood specimen (specimen) 12/03/2012 1:26 AM EDT 12/03/2012 1:26 AM EDT Param Granados MD POINT OF CARE TEST ORDERABLES Performing Organization Address [facility] Phone Number THEO ARCOS * Prepare RBC (12/02/2012 11:00 PM EDT) Dispensed? Yes THEO ARCOS Blood specimen (specimen) 12/02/2012 11:00 PM EDT 12/02/2012 10:59 PM EDT Sharon Gill MD BLOOD BANK PRODUCT ORDERABLES Performing Organization Address [facility] de Phone Number THEO POOLKING[facility] CENTERJHONATHAN * Selected Cell Screen (12/02/2012 [...] MD HEMATOLOGY ORDERABL ES Performing Organization Address [facility] de Phone Number THEO POOLENNIUM * Gold Tube HOLD (12/02/2012 10:30 PM EDT) Gold Hold Sample in lab. THEO FONTANAIUM Blood specimen (specimen) 12/02/2012 10:30 PM EDT 12/02/2012 10:33 PM EDT Sharon Gill MD CHEMISTRY ORDERABLE S Performing Organization Address [facility] de Phone Number THEO POOLENNIUM * (ABNORMAL) APTT (12/02/2012 10:30 PM EDT) Partial Thromboplastin Time 36(H) 25 - 35 sec [facility] Fle[place]ENNIUM Comment: Recommended therapeutic PTT range for full dose unfractionated heparin is 80-114 seconds. Blood specimen (specimen) 12/02/2012 10:30 PM EDT 12/02/2012 10:33 PM EDT Narrative Resulting Agency Comment Spec In Lab Sharon Gill MD HEMATOLOGY ORDERABL ES Performing Organization Address [facility] de Phone Number THEO POOLENNIUM * (ABNORMAL) Prothrombin Time (12/02/2012 10:30 PM EDT) Prothrombin Time 16.8(H) 12.0 - 15.0 sec [facility] Fle[place]ownENNIUM Comment: [facility] Transfusion Committee Guidelines: INR less than [...] intervals supplied above were not validated at [facility]. Results from pediatric patients [...] MD CHEMISTRY ORDERABLE S Performing Organization Address City/[facility] Co de Phone Number [facility] CORINEENNIUM * (ABNORMAL) BUN (12/02/2012 10:30 PM EDT) Blood Urea Nitrogen 41(H) 10 - 20 mg/dL [facility] MILLENNIUM Blood specimen (specimen) 12/02/2012 10:30 PM EDT 12/02/2012 10:33 PM EDT Narrative Resulting Agency Comment Spec In Lab Sharon Gill MD CHEMISTRY ORDERABLE S Performing Organization Address [facility] Co de Phone Number [facility] CORINEENNIUM * (ABNORMAL) Electrolytes panel (12/02/2012 10:30 PM EDT) Sodium 140 135 - 145 mmol/L [facility] MILLENNIUM Potassium 4.3 3.5 - 5.0 mmol/L [...] Until Tue12/05/12 at 1230, For Procedural use. [place] on area for one second. May repeat [...] RN) 0231 (Given - Provider: Radha Guzmán, EMLY)1400 (Given - Provider: Himanshu Gallegos RN) 0251 [...] ineffective documented in this encounter Care Teams Toll Mechanic Relationship Specialty Start Date End Date Gina Manzo MD [address] [place] [address] PCP - General 03/03/10 02/12/19 documented as of this encounter
--- OUTSIDE RECORDS SUMMARY | 2024-01-20 15:50 | XMS_ITS | Encounter Summary ---
[place] [address] Care Team Providers Care Show Host Name Role Phone Laurie Wiggins MD Primary Care Provider +1- [phone] Encounter Details Date Type Department Care Team (Latest Contact Info) Description 09/19/2012 2:19 PM EDT - 09/19/2012 5:25 PM EDT Hospital En[place] [address] Berna Shabazz MD [facility] [place] [address] Gustabo Garza MD [facility] [address] [place] [address] Boo Browne MD [facility] [place] [address] Discharge Disposition: Home Social History Tobacco Use [...] occurs, please contact your MD/ Please call [phone] before 5pm with problems, questions or concerns. After 5pm call [phone] and ask to speak with the general operations manager acquisition consultant. Discharge instructions reviewed with patient who expresses [...] Browne MD - 09/19/2012 4:28 PM EDT [facility] Operative Note Patient Name: Alonzo Urbina : [id number] MR#: [id number] Case Date: 09/19/2012 Surgeon: Surgeon(s) and Role: [...] 8:15 AM EST Office Visit Dermatology at [place] [address] [place] [address] Jin Nunez MD [address], [place] [address] documented as of this encounter Procedures Procedure Name Priority Date/Time Associated Diagnosis Comments EGD, UPPER GI ENDOSCOPY (WRVU 2.09) 09/19/2012 4:17 PM EDT Cirrhosis of liver UPPER GI ENDOSCOPY Routine 09/19/2012 3: 51 PM EDT documented in this encounter Results * UPPER GI ENDOSCOPY (09/19/2012 3:51 PM EDT) UPPER GI ENDOSCOPY [facility] Endoscopy Patient Name: Alonzo Urbina ? Procedure Date: 09/19/2012 3:51 PM ? Date of : 1955 ? Age: 57 ? Order #: [id number] ? Procedure: ? Upper GI endoscopy Indications: ? Melena, Follow-up of esophageal ? varices Providers: ? Boo Browne MD, Luis Fernando Caban ? , RN, Joanne Wu RN Referring : ?Laurie Wiggins MD, Paty Rivera ? Ray, GUN REPAIR CLERK Medicines: ? Midazolam 4 mg IV, Fentanyl [...] time) documented in this encounter Care Teams Show Host Relationship Specialty Start Date End Date Laurie Wiggins MD [address] [place] [address] PCP - General 03/03/10 02/12/19 documented as of this encounter
--- OUTSIDE RECORDS SUMMARY | 2024-01-20 15:50 | XMS_ITS | Encounter Summary ---
Author Organization [facility] [place] [address] Care Team Providers Care Senior It Security Analyst Name Role Phone Laurie Wiggins MD Primary Care Provider [phone]- [phone] Encounter Details Date Type Department Care Team (Latest Contact Info) Description 09/27/2012 8:16 AM EDT - 09/27/2012 11:59 PM EDT [place] [address] Gustabo Garza MD [facility] [place] [address] Cirrhosis Discharge Disposition: Home Social History Tobacco [...] 8:15 AM EST Office Visit Dermatology at [place] [address] [facility] [place] [id number] Jin Nunez MD [address] [place] [address] Scheduled Orders Name Type Priority Associated Diagnoses [...] % 63.0 34.0 - 71.0 % [facility] Neutrophil Absolute 2.95 1.50 - 6.30 x10(3)/mcL [...] 12-20-2011. Reference: Immulite 2000 AFP package insert ([id number], 2009-01-02) Blood specimen (specimen) 09/27/2012 8:29 AM EDT 09/27/2012 12:28 PM EDT Narrative Resulting Agency Comment Spec In Lab Gustabo Garza MD CHEMISTRY ORDERABLE S Performing Organization Address [facility] [employer] de Phone Number THEO POOLENNIUM * Prothrombin Time (09/27/2012 8:29 AM EDT) Prothrombin Time 14.1 12.0 - 15.0 sec CERNER MILLENNIUM Comment: [facility] Transfusion Committee Guidelines: INR less than [...] MD HEMATOLOGY ORDERABL ES Performing Organization Address [facility] de Phone Number CERSIDDHARTH POOLENNIUM * (ABNORMAL) Comprehensive metabolic panel (non-fasting) (09/27/2012 8:29 AM EDT) Glucose 269(H) 60 - 199 mg/dL CERNER MILLENNIUM Comment:Diabetes: >=200 mg/d L plus symptoms Blood Urea Nitrogen 25(H) 10 - 20 mg/dL CERNER MILLENNIUM Creatinine 1.02 0.80 - 1.50 mg/dL CERNER MILLENNIUM Comment: Please note that the pediatric reference intervals supplied above were not validated at [facility]. Results from pediatric patients should be interpreted [...] documented in this encounter Care Teams Senior It Security Analyst Relationship Specialty Start Date End Date Laurie Wiggins MD [address] [place] [address] PCP - General 03/03/10 02/12/19 documented as of this encounter
--- OUTSIDE RECORDS SUMMARY | 2024-01-20 15:50 | XMS_ITS | Encounter Summary ---
[place] [address] Care Team Providers Care Substation Operator Apprentice Name Role Phone Laurie Wiggins MD Primary Care Provider [phone]- [phone] Encounter Details Date Type Department Care Team (Late st Contact Info) Description 10/10/2012 Telephone [place] [phone] Jacinta Nunes, RN Social History Tobacco Use [...] 8:15 AM EST Office Visit Dermatology at [place] [address] [facility] [place] [address] Jin Nunez MD [address] [facility], [place] [address] documented as of this encounter Visit Diagnoses Not on filedocumented in this encounter Care Teams Substation Operator Apprentice Relationship Specialty Start Date End Date Laurie Wiggins MD [address] [place] [address] PCP - General 03/03/10 02/12/19 documented as of this encounter
--- OUTSIDE RECORDS SUMMARY | 2024-01-20 15:50 | XMS_ITS | Encounter Summary ---
[place] [address] Care Team Providers Care Assembly Line Brazer Name Role Phone Gina Manzo MD Primary Care Provider [phone] Encounter Details Date Type Department Care Team (Late st Contact Info) Description 12/05/2012 11:00 AM EDT - 12/05/2012 11:45 AM EDT [place] [address] Ernesto Cardona MD [facility] [place] [address] COLONOSCOPY, DIAGNOSTIC (WRVU 3.26) Social History Tobacco [...] follow-up with your primary care physician and plan checker. You will need a blood test the [...] scheduled with Dr. GINA MANZO MD at [address] [place] [id number] on , December 14 at 10:45 am. Future Appointments Date Time Provider Department Center 12/28/2012 8:45 AM 2, Ultrasound [facility] None 12/28/2012 11:30 AM Ptay Pedraza APRN [facility] [place] [facility]L [facility] Your Discharge Medication List Unchanged SPIRAL [employer]ING W[employer]ER meds that are or will be resumed Medication Status Sig Dispense Refill ??? multivitamin (THERAGRAN) tablet Active Take 1 tablet by mouth daily. Changed SP[employer]ING W[employer]ER meds Medication Status Sig Dispense Refill ??? [...] as needed for Sleep. 20 tablet 0 SPIRAL SPRING WINDER meds that are DCed or will be [...] mouth daily. Your Inpatient Medical Team at [facility] Name(s) of your inpatient provider(s): Drs. Andres Thompson, Cory Tellez, Ernesto Cardona, Gustabo Garza For questions regarding issues relating to your hospitalization on the Hospital Medicine Service, please contact your inpatient physician through the [facility] Flosser [phone]. Issues after hours and on weekends will be handled by the Hospitalist staff on-call. Your Primary Care Provider GINA MANZO MD [phone] documented in this encounter Medications at Time [...] spent >30 minutes (Day of Discharge Code 43083) involved in the final examination of the [...] Cory Tellez - 12/06/2012 8:35 AM EDT [facility] - Attending Daily Progress Note [...] history. 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 I updated her today at bedside and spent >40 minutes with them today. -Disposition - pending medical improvement * Julienne Carlisle RN - 12/05/2012 5:16 PM EDT Initial Assessment/CRC Note Office of Care Management Alonzo Urbina 1955 [address] [facility] [address] Late Entry eDH reviewed. Report received from Dr. Tellez. Patient reviewed in multidisciplinary discharge rounds. S: This place is falling apart in my opinion. O: Introduced self and CRC role to patient and carlos Bowers; patient agrees to CRC services; pt currently lives with Elissa in own home in [place], [place]. CRC contact information left on patient [...] insured via Medicare A,B and D via [employer] and [employer]. Transportation: Carlos will transport pt home. Anticipated Services at Discharge: will require re-assessment closer to time of d/c. Social Support Patient has given [facility] permission for carlos Parker ( cell [phone])to be contacted. A: medical plan still evolving. P: This headline writer or colleague from the Office of Care Management will continue to follow patient to assist w/ changing needs and collaborate w/ pt, medical team and family to formulate a plan for discharge; CRC may be reached on beeper [phone] or by leaving a voice mail message at [phone]. [phone]. See Care Management note in eDH for detailed VNA/DME information upon discharge. Medical Team: Hospitalist Service, pager [phone]. Julienne Carlisle, RN, MSN, [facility] Clinical Edge [place] Office of Care Management Pager [phone] Phone: [phone] * Socorro Lomeli RN - 12/05/2012 3:09 [...] oozing or bleeding. - Normal examined duodenum. Traskwood 12/05: poor prep with no evidence of [...] to slow oozing from his portal gastropathy. Traskwood was poor prep with evidence of active [...] them as documented. Ernesto Cardona MD, MS label pinker Section of Gastroenterology and Hepatology * Francia Nichole RN - 12/05/2012 12:40 PM EDT Report called to FREDY Niño. 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 I updated her today at bedside and spent >40 minutes with them today. -Disposition - pending medical improvement * Estela Barba PT - 12/04/2012 2:47 PM EDT Physical therapy Referral received, Attempted initial visit, pt occupied with bathroom Will return tomorrow for evaluation ESTELA BARBA, PT * Cory Tellez - 12/04/2012 9:02 AM EDT [facility] - Attending Daily Progress Note [...] cirrhosis c/h/o variceal sequential banding to eradication [id number], hx of UGIB without obvious clear source [...] 01/11 -Code status - Full; Elissa ruth ([phone]) is medical decision maker. I updated her [...] Cory Tellez - 12/03/2012 8:47 AM EDT [facility] - Attending Daily Progress Note [...] TYPE MANUAL Component Value Range Specimen OD [id number] ABORh Type A Pos SELECTED CELL SCREEN [...] 01/11 -Code status - Full; Elissa ruth ([phone]) is medical decision maker. I updated her [...] behavior ID: 57 y.o. Male presents to [facility] with GI bleed. History of Present Illness: HPI Patient is a 57 Y M with history of Hepatitis C, cirrhosis Portal HTN who was transferred from [facility] for evaluation of GI [...] + Extremities: No edema, peripheral pulses + AEROSPACE ASSEMBLER: Awake, alert, oriented. No focal deficits. [...] 12/08/2012 3:03 PM EDTAssociated Order(s): SCAN DOC: ADZING AND BORING MACHINE FEEDER * Provider, Scanning - 12/08/2012 2:46 PM [...] a 57 y.o. 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 You will need a blood test the [...] scheduled with Dr. GINA MANZO MD at [address] [place] [address] on December 14 at 10:45 am. Future Appointments Date Time Provider Department Center 12/28/2012 8:45 AM 2, Ultrasound Rm [facility] None 12/28/2012 11:30 AM Paty Pedraza, SAMANTHA [address]ADILL[address] [facility] Your Discharge Medication List Unchanged SPIRAL [employer]ING W[employer]ER meds that are or will be resumed Medication Status Sig Dispense Refill ??? multivitamin (THERAGRAN) tablet Active Take 1 tablet by mouth daily. Changed SP[employer]ER meds Medication Status Sig Dispense Refill ??? [...] as needed for Sleep. 20 tablet 0 SPIRAL SPRING W[employer]ER meds that are DCed or will be [...] mouth daily. Your Inpatient Medical Team at [facility] Name(s) of your inpatient provider(s): Drs. Andres Thompson, Cory Tellez, Ernesto Cardona, Gustabo Garza For questions regarding issues relating to your hospitalization on the Hospital Medicine Service, please contact your inpatient physician through the [facility] Flosser [phone]. Issues after hours and on weekends will be handled by the Hospitalist staff on-call. Your Primary Care Provider GINA MANZO MD [phone] General Instructions None Future Appointments and Orders Future Appointments: Provider: Department: Dept Phone: Center: 12/28/2012 8:45 AM Ultrasound Rm [address] [facility] RAD ULTRASOUND [phone] None 12/28/2012 11:30 AM Paty Pedraza APRN Gastroenterology [phone] [facility] Discharge References/Attachments: Discharge References/Attachments None Inpatient Provider Contact Information: For questions regarding this document or issues relating to this hospitalization on the Medical Service, please contact your inpatient physician through the [facility] Flosser . Issues afterhours and on weekends will [...] study. Patient has taken the 2000cc of Versonics ordered this afternoon. Medicated for nausea per JUN. * Op Note - Ernesto Cardona MD - 12/05/2012 5:03 PM EDT [facility] Operative Note Patient Name: Alonzo Urbina : [id number] MR#: [id number] Case Date: 12/05/2012 Surgeon: Surgeon(s) and Role: [...] 0 minutes ESTELA BARBA PT 12/05/2012 Pager: [phone] Physical Therapy Rehabilitation Department * Plan of [...] 12/02/2012 11:59 PM EDT . [facility] Section of Gastroenterology and Hepatology Initial Inpatient Consultation Patient Name: Alonzo Urbina : 1955 Referring provider: Dr. Granados, medicine Date of Consult: 12/02/12 Reason for Consult: UGIB History of Present Illness: Alonzo Urbina is a 57 y.o. WM, [facility] s/o ETOH abuse (sober 12/21), [...] day denies daily use. Had colonoscopy at [facility] reportedly WNL. Last EGD09/21 Dr. [...] PM EDT [facility] For evaluation of GI bleeding pt is alert oriented resp regular unlabored pt is dizzy when standing skin is cool and pale documented in this encounter Plan of Treatment Upcoming Encounters Date Type Department Care Team (Late st Contact Info) Description 2024 8:15 AM EST Office Visit Dermatology at [place] [address] [facility] [place] [id number] Jin Nunez MD [address], [place] [address] documented as of this encounter Procedures Procedure Name Priority Date/Time Associated Diagnosis Comments ADZING AND BORING MACHINE FEEDER SCAN 12/08/2012 3:03 PM EDT LAB SCAN [...] in this encounter Results * SCAN DOC: ADZING AND BORING MACHINE FEEDER (12/08/2012 3:03 PM EDT) Anatomical Region Laterality [...] (12/06/2012 8:00 AM EDT) VIDEO CAPSULE ENDOSCOPY [facility] Endoscopy ___ Patient Name: Alonzo Urbina ? Procedure Date: 12/06/2012 8:00 AM ? N: [id number] ? Date of : 1955 ? Age: 57 ? Order #: [id number] ? ___ Procedure: ? Video capsule endoscopy [...] MD HEMATOLOGY ORDERAB LES Performing Organization Address [facility] Co de Phone Number [facility] CORINEENNIUM * (ABNORMAL) Hepatic Function [...] Tellez MD CHEMISTRY ORDERABLES Performing Organization Address [facility] Co de Phone Number [facility] ADDIIUM * (ABNORMAL) Basic Metabolic Panel (non-fasting) (12/06/2012 6:12 AM EDT) Glucose 126 60 - 199 mg/dL CERNER MILLENNIUM Comment:Diabetes: >=200 mg/d L plus symptoms Blood Urea Nitrogen 8(L) 10 - 20 mg/dL CERNER MILLENNIUM Creatinine 0.84 0.80 - 1.50 mg/dL CERNER MILLENNIUM Comment: Please note that the pediatric reference intervals supplied above were not validated at [facility]. Results from pediatric [...] * COLONOSCOPY (12/05/2012 11:38 AM EDT) COLONOSCOPY [facility] Endoscopy ___ Patient Name: Alonzo Urbina ? Procedure Date: 12/05/2012 11:38 AM ? Date of : 1955 ? Age: 57 ? Order #: [id number] ? ___ Procedure: ? Colonoscopy Indications: ? Gastrointestinal occult blood loss Providers: ? Ernesto Cardona MD, Ariana Austin, ? , Davi Kapadia RN, Janie Blood ? Marv, Application Integrator Referring MD: ? Medicines: ? Midazolam 4 [...] ? throughout the colon, may be ? agricultural sales representative of portal hypertension. Recommendation: ?- [...] EDT Param Granados MD HEMATOLOGY ORDERAB LES [facility] * (ABNORMAL) Basic Metabolic Panel (non-fasting) (12/05/2012 5:39 AM EDT) [facility] Glucose 135 60 - 199 mg/dL CERNER MILLENNIUM Comment:Diabetes: >=200 mg/d L plus symptoms Blood Urea Nitrogen 14 10 - 20 mg/dL CERNER MILLENNIUM Creatinine 0.92 0.80 - 1.50 mg/dL CERNER MILLENNIUM Comment: Please note that the pediatric reference intervals supplied above were not validated at [facility]. Results from pediatric [...] Lab Param Granados MD HEMATOLOGY ORDERAB LES [facility] FONTANAIUM * (ABNORMAL) Hemoglobin and Hematocrit, blood (12/04/2012 9:55 PM EDT) Hemoglobin 7.6(L) 13.7 - 17.5 gm/dL [facility] CORINEENNIUM Hematocrit 22.9(L) 40.0 - 51.0 % [facility] CORINEENNIUM Blood specimen (specimen) 12/04/2012 9:55 PM EDT 12/04/2012 10:07 PM EDT Narrative Resulting Agency Comment Spec In Lab Cory Tellez MD HEMATOLOGY ORDERABLE S [facility]ENTERIUM * APTT (12/04/2012 3:13 PM EDT) Partial Thromboplastin Time 31 25 - 35 sec [facility] MILLENNIUM Comment: Recommended therapeutic PTT range for full dose unfractionated heparin is 80-114 seconds. Blood specimen (specimen) 12/04/2012 3:13 PM EDT 12/04/2012 3:26 PM EDT Narrative Resulting Agency Comment Spec In Lab Cory Tellez MD HEMATOLOGY ORDERABLE S Performing Organization Address City/[facility]/ZIP Co de Phone Number CERNER MILLENNIUM * (ABNORMAL) Hemoglobin and Hematocrit, blood (12/04/2012 3:13 PM EDT) Hemoglobin 8.4(L) 13.7 - 17.5 gm/dL CERNER MILLENNIUM Hematocrit 25.8(L) 40.0 - 51.0 % CERNER MILLENNIUM Blood specimen (specimen) 12/04/2012 3:13 PM EDT 12/04/2012 3:25 PM EDT Narrative Resulting Agency Comment Spec In Lab Cory Tellez MD HEMATOLOGY ORDERABLE S Performing Organization Address [facility]/[place] de Phone Number CERNER MILLENNIUM * (ABNORMAL) Basic Metabolic Panel (non-fasting) (12/04/2012 3:13 PM EDT) Glucose 118 60 - 199 mg/dL CERNER MILLENNIUM Comment:Diabetes: >=200 mg/d L plus symptoms Blood Urea Nitrogen 20 10 - 20 mg/dL CERNER MILLENNIUM Creatinine 0.94 0.80 - 1.50 mg/dL CERNER MILLENNIUM Comment: Please note that the pediatric reference intervals supplied above were not validated at [facility]. Results from pediatric [...] Tellez MD CHEMISTRY ORDERABLES Performing Organization Address [facility] de Phone Number CERSIDDHARTH MILLENNIUM * (ABNORMAL) Prothrombin Time (12/04/2012 3:13 PM EDT) Prothrombin Time 16.2(H) 12.0 - 15.0 sec CERNER MILLENNIUM Comment: [facility] Transfusion Committee Guidelines: INR less than [...] S Performing Organization Address [facility]/[place] de Phone Number CERNER MILLENNIUM * (ABNORMAL) Hemoglobin and Hematocrit, blood (12/04/2012 9:13 AM EDT) Hemoglobin 7.7(L) 13.7 - 17.5 gm/dL CERNER MILLENNIUM Hematocrit 23.9(L) 40.0 - 51.0 % CERNER MILLENNIUM Blood specimen (specimen) 12/04/2012 9:13 AM EDT 12/04/2012 9:19 AM EDT Narrative Resulting Agency Comment Spec In Lab Cory Tellez MD HEMATOLOGY ORDERABLE S Performing Organization Address [facility] Co de Phone Number CERNER MILLENNIUM * (ABNORMAL) Hemoglobin and Hematocrit, blood (12/04/2012 6:32 AM EDT) Hemoglobin 8.0(L) 13.7 - 17.5 gm/dL CERNER MILLENNIUM Hematocrit 23.8(L) 40.0 - 51.0 % CERNER MILLENNIUM Blood specimen (specimen) 12/04/2012 6:32 AM EDT 12/04/2012 6:58 AM EDT Narrative Resulting Agency Comment Spec In Lab Cory Tellez MD HEMATOLOGY ORDERABLE S Performing Organization Address City/[facility] Co de Phone Number THEO POOLENNIUM * Ammonia (12/04/2012 6:32 AM EDT) Ammonia 30 16 - 60 mcmol/L CERNER MILLENNIUM Blood specimen (specimen) 12/04/2012 6:32 AM EDT 12/04/2012 6:57 AM EDT Narrative Resulting Agency Comment Spec In Lab Cory Tellez MD CHEMISTRY ORDERABLES Performing Organization Address [facility]/[place] de Phone Number THEO POOLENNIUM * (ABNORMAL) Hemoglobin and Hematocrit, blood (12/03/2012 11:08 PM EDT) Hemoglobin 8.2(L) 13.7 - 17.5 gm/dL CERNER MILLENNIUM Hematocrit 24.5(L) 40.0 - 51.0 % CERNER MILLENNIUM Blood specimen (specimen) 12/03/2012 11:08 PM EDT 12/03/2012 11:13 PM EDT Narrative Resulting Agency Comment Spec In Lab Cory Tellez MD HEMATOLOGY ORDERABLE S Performing Organization Address [facility]/[place] de Phone Number CERSIDDHARTH POOLENNIUM * (ABNORMAL) Hemoglobin and Hematocrit, blood (12/03/2012 4:50 PM EDT) Hemoglobin 8.2(L) 13.7 - 17.5 gm/dL CERNER MILLENNIUM Hematocrit 25.1(L) 40.0 - 51.0 % CERNER MILLENNIUM Blood specimen (specimen) 12/03/2012 4:50 PM EDT 12/03/2012 4:50 PM EDT Narrative Resulting Agency Comment Spec In Lab Cory Tellez MD HEMATOLOGY ORDERABLE S Performing Organization Address City/[facility] Co de Phone Number CERSIDDHARTH MILLENNIUM * Transfuse RBC (12/03/2012 12:06 PM EDT) Cory Tellez MD NURSING TREATMENT OR DERABLES - BLOOD ADMIN * Prepare RBC (12/03/2012 9:40 AM EDT) Pathologist [facility] Dispensed? Yes [facility] Blood specimen (specimen) 12/03/2012 9:40 AM EDT 12/03/2012 9:36 AM EDT Cory Tellez MD BLOOD BANK PRODUCT O RDERABLES [facility]ENTERJHONATHAN * POCT Glucose (12/03/2012 6:35 AM EDT) Pathologist [facility] Glucose, POC 129 60 - 199 mg/dL [facility] Comment: Supplemental ranges: <110 mg/dL before meals <200 mg/dL all other times of the day Blood specimen (specimen) 12/03/2012 6:35 AM EDT 12/03/2012 6:35 AM EDT Param Granados MD POINT OF CARE TEST ORDERABLES Performing Organization Address City/[facility] Co de Phone Number [facility]IDDHARTH POOLNORTHWEST MEDICAL CENTERJHONATHAN * Differential, Automated (12/03/2012 6:33 AM EDT) Neutrophil % 56.9 34.0 - 71.0 % [facility] Neutrophil Absolute 2.67 1.50 - 6.30 x10(3)/mcL [...] EDT Param Granados MD HEMATOLOGY ORDERAB LES [facility] MILLENNIUM * (ABNORMAL) Basic Metabolic Panel (non-fasting) (12/03/2012 6:33 AM EDT) [facility] Glucose 128 60 - 199 mg/dL CERNER MILLENNIUM Comment:Diabetes: >=200 mg/d L plus symptoms Blood Urea Nitrogen 42(H) 10 - 20 mg/dL CERNER MILLENNIUM Creatinine 0.86 0.80 - 1.50 mg/dL CERNER MILLENNIUM Comment: Please note that the pediatric reference intervals supplied above were not validated at [facility]. Results from pediatric [...] MD HEMATOLOGY ORDERAB LES Performing Organization Address [facility] Co de Phone Number THEO ARCOS * Transfuse RBC (12/03/2012 5:33 AM EDT) Sharon Gill MD NURSING TREATMENT O RDERABLES - BLOOD ADMIN * Transfuse RBC (12/03/2012 5:33 AM EDT) Sharon Gill MD NURSING TREATMENT O RDERABLES - BLOOD ADMIN * POCT Glucose (12/03/2012 1:26 AM EDT) Pathologist [facility] Glucose, POC 105 60 - 199 mg/dL [facility] COR[facility]ENOR[facility] CENTERJHONATHAN Comment: Supplemental ranges: <110 mg/dL before meals <200 mg/dL all other times of the day Blood specimen (specimen) 12/03/2012 1:26 AM EDT 12/03/2012 1:26 AM EDT aPram Granados MD POINT OF CARE TEST ORDERABLES Performing Organization Address [facility] Phone Number THEO ARCOS * Prepare RBC (12/02/2012 11:00 PM EDT) Dispensed? Yes THEO ARCOS Blood specimen (specimen) 12/02/2012 11:00 PM EDT 12/02/2012 10:59 PM EDT Sharon Gill MD BLOOD BANK PRODUCT ORDERABLES Performing Organization Address [facility] Phone Number [facility] CORINENORTH[facility]ST MED[facility] CENTERJHONATHAN * Selected Cell Screen (12/02/2012 [...] LAB ORDJluis [place] Performing Organization Address City/[facility] Co de Phone Number CERNER [...] MD HEMATOLOGY ORDERABL ES Performing Organization Address [facility] Co de Phone Number THEO FONTANAIUM * Gold Tube HOLD (12/02/2012 10:30 PM EDT) Gold Hold Sample in lab. THEO FONTANAIUM Blood specimen (specimen) 12/02/2012 10:30 PM EDT 12/02/2012 10:33 PM EDT Sharon Gill MD CHEMISTRY ORDERABLE S Performing Organization Address [facility]/[place] de Phone Number THEO POOLENNIUM * (ABNORMAL) APTT (12/02/2012 10:30 PM EDT) Partial Thromboplastin Time 36(H) 25 - 35 sec [facility] MILLENNIUM Comment: Recommended therapeutic PTT range for full dose unfractionated heparin is 80-114 seconds. Blood specimen (specimen) 12/02/2012 10:30 PM EDT 12/02/2012 10:33 PM EDT Narrative Resulting Agency Comment Spec In Lab Sharon Gill MD HEMATOLOGY ORDERABL ES Performing Organization Address [facility] de Phone Number THEO FONTANAIUM * (ABNORMAL) Prothrombin Time (12/02/2012 10:30 PM EDT) Prothrombin Time 16.8(H) 12.0 - 15.0 sec [facility] MILLENNIUM Comment: [facility] Transfusion Committee Guidelines: INR less than [...] MD HEMATOLOGY ORDERABL ES Performing Organization Address [facility] de Phone Number CERNER MILLENNIUM * (ABNORMAL) [...] CHEMISTRY ORDERABLE S Performing Organization Address City/[facility] Co de Phone Number CERNER MILLENNIUM * Glucose, random (12/02/2012 10:30 PM EDT) Glucose 121 60 - 199 mg/dL CERNER MILLENNIUM Comment:Diabetes: >=200 mg/d L plus symptoms Blood specimen (specimen) 12/02/2012 10:30 PM EDT 12/02/2012 10:33 PM EDT Narrative Resulting Agency Comment Spec In Lab Sharon Gill MD CHEMISTRY ORDERABLE S Performing Organization Address City/[facility]/ZIP Co de Phone Number THEO ARCOS * (ABNORMAL) Creatinine (12/02/2012 10:30 PM EDT) Creatinine 0.76(L) 0.80 - 1.50 mg/dL THEO POOLENNIUM Comment: Please note that the pediatric reference intervals supplied above were not validated at [facility]. Results from pediatric [...] MD CHEMISTRY ORDERABLE S Performing Organization Address [facility] Phone Number THEO ARCOS * (ABNORMAL) BUN (12/02/2012 10:30 PM EDT) Blood Urea Nitrogen 41(H) 10 - 20 mg/dL [facility]ERS[facility]DHARTH ARCOS Blood specimen (specimen) 12/02/2012 10:30 PM EDT 12/02/2012 10:33 PM EDT Narrative Resulting Agency Comment Spec In Lab Sharon Gill MD CHEMISTRY ORDERABLE S Performing Organization Address [facility] de Phone Number THEO ARCOS * (ABNORMAL) Electrolytes panel (12/02/2012 10:30 PM EDT) Sodium 140 135 - 145 mmol/L [facility] Potassium 4.3 3.5 - 5.0 mmol/L CERNER [...] Sharon Gill MD HEMATOLOGY ORDERABL ES [facility] documented in this encounter Visit [...] ineffective documented in this encounter Care Teams Assembly Line Brazer Relationship Specialty Start Date End Date Gina Manzo MD [address] [place] [address] PCP - General 03/03/10 02/12/19 documented as of this encounter
--- OUTSIDE RECORDS SUMMARY | 2024-01-20 15:50 | XMS_ITS | Encounter Summary ---
[place] [address] Care Team Providers Care Automatic Transmission Mechanic Name Role Phone Gina Manzo MD Primary Care Provider [phone]- [phone] Encounter Details Date Type Department Care Team (Late st Contact Info) Description 12/06/2012 7:30 AM EDT - 12/06/2012 8:00 AM EDT [place] [address] Roland Patterson MD [facility] [place] [address] VIDEO CAPSULE ENDOSCOPY (WRVU 2.24) Social History [...] follow-up with your primary care physician and food service clerk. You will need a blood test the [...] scheduled with Dr. GINA MANZO MD at [address] [place] [address] on December 14 at 10:45 am. Future Appointments Date Time Provider Department Center 12/28/2012 8:45 AM 2, Ultrasound [place] [facility] None 12/28/2012 11:30 AM Paty Pedraza APRN [facility] Your Discharge Medication List Unchanged RESPITE PROVIDER meds that are or will be resumed Medication Status Sig Dispense Refill ??? multivitamin (THERAGRAN) tablet Active Take 1 tablet by mouth daily. Changed RESPITE PROVIDER meds Medication Status Sig Dispense Refill ??? [...] as needed for Sleep. 20 tablet 0 RESPITE PROVIDER meds that are DCed or will be [...] mouth daily. Your Inpatient Medical Team at [facility] Name(s) of your inpatient provider(s): Drs. Andres Thompson, Cory Tellez, Ernesto Cardona, Gustabo Garza For questions regarding issues relating to your hospitalization on the Hospital Medicine Service, please contact your inpatient physician through the [facility] Head Of Biology [phone]. Issues after hours and on weekends will be handled by the Hospitalist staff on-call. Your Primary Care Provider GINA MANZO MD [phone] documented in this encounter Medications at Time [...] spent >30 minutes (Day of Discharge Code 89656) involved in the final examination of the [...] Cory Tellez - 12/06/2012 8:35 AM EDT [facility] Medicine - Attending Daily Progress Note [...] history. 24 Hour Events/Subjective: H+H, vitals stable Covina negative For capsule endoscopy today to eval [...] friable mucosa throughout the colon, may be district representative of por kee hypertension. 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 I updated her today at bedside and spent >40 minutes with them today. -Disposition - pending medical improvement * Julienne Carlisle RN - 12/05/2012 5:16 PM EDT Initial Assessment/CRC Note Office of Care Management Alonzo Urbina 1955 [address] [facility] [address] Late Entry eDH reviewed. Report received from Dr. Tellez. Patient reviewed in multidisciplinary discharge rounds. S: This place is falling apart in my opinion. O: Introduced self and CRC role to patient and carlos Bowers; patient agrees to CRC services; pt currently lives with Elissa in own home in [place], [place]. CRC contact information left on patient [...] insured via Medicare A,B and D via [employer] and [place] [employer]. Transportation: Carlos will transport pt home. Anticipated Services at Discharge: will require re-assessment closer to time of d/c. Social Support Patient has given [facility] permission for carlos Parker ( cell [phone])to be contacted. A: medical plan still evolving. P: This leader writer or colleague from the Office of Care Management will continue to follow patient to assist w/ changing needs and collaborate w/ pt, medical team and family to formulate a plan for discharge; CRC may be reached on [phone] [phone] or by leaving a voice mail message at ext. [phone]. See Care Management note in eDH for detailed VNA/DME information upon discharge. Medical Team: Hospitalist Service, pager [phone]. Julienne Carlisle, RN, MSN, [facility] Clinical Edging Machine Operator Office of Care Management Pager [phone] Phone: [phone] * Socorro Lomeli RN - 12/05/2012 3:09 [...] oozing or bleeding. - Normal examined duodenum. Covina 12/05: poor prep with no evidence of [...] to slow oozing from his portal gastropathy. Covina was poor prep with evidence of active [...] them as documented. Ernesto Cardona MD, MS education and training manager Section of Gastroenterology and Hepatology * Francia Nichole RN - 12/05/2012 12:40 PM EDT Report called to FREDY Niño. 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 I updated her today at bedside and spent >40 minutes with them today. 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 I updated her today at his request. -Disposition - pending medical improvement * Juliette Barreto, MELY - 12/04/2012 1:18 AM EDT Pt had a moderate loose BM at 0100. Black with streaks of adrianna red blood. * Cleopatra Camara, MELY - 12/03/2012 5:54 PM EDT [facility] staff. A&Ox4. [...] Cory Tellez - 12/03/2012 8:47 AM EDT [facility] Medicine - Attending Daily Progress Note [...] TYPE MANUAL Component Value Range Specimen OD [id number] ABORh Type A Pos SELECTED CELL SCREEN [...] 01/11 -Code status - Full; Elissa ruth ([phone]) is medical decision maker. I updated her [...] to the patient. Consent signed. * Ana Camagro Denise - 12/03/2012 11:55 AM EDT Gastroenterology [...] the patient. Consent has been signed. * Adnres Thompson - 12/02/2012 11:32 PM EDT Inpatient Hospital Medicine - Admission Note Problem List: There are no hospital problems to display for this patient. Active Non-Hospital Problems Diagnosis ??? Cirrhosis ??? Alcohol abuse, episodic drinking behavior ID: 57 y.o. Male presents to [facility] with GI bleed. History of Present Illness: HPI Patient is a 57 Y M with history of Hepatitis C, cirrhosis Portal HTN who was transferred from [facility] for evaluation of GI bleed. Patient [...] + Extremities: No edema, peripheral pulses + SUPERVISOR BAKING: Awake, alert, oriented. No focal deficits. Laboratory [...] 12/08/2012 3:03 PM EDTAssociated Order(s): SCAN DOC: E BUSINESS PROJECT MANAGER * Provider, Scanning - 12/08/2012 2:46 PM [...] a 57 y.o. male who presents to [facility] with GI bleeding History of Present Illness [...] cirrhosis Portal HTN who was transferred from [facility] for evaluation of GI bleed. Patient [...] friable mucosa throughout the colon, may be district representative of por kee hypertension. 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 You will need a blood test the [...] scheduled with Dr. GINA MANZO MD at [address] [place] [address] on , December 14 at 10:45 am. Future Appointments Date Time Provider Department Center 12/28/2012 8:45 AM 2, Ultrasound [facility] [facility] None 12/28/2012 11:30 AM Paty Pedraza APRN [facility] Your Discharge Medication List Unchanged RESPITE PROVIDER meds that are or will be resumed Medication Status Sig Dispense Refill ??? multivitamin (THERAGRAN) tablet Active Take 1 tablet by mouth daily. Changed RESPITE PROVIDER meds Medication Status Sig Dispense Refill ??? [...] as needed for Sleep. 20 tablet 0 RESPITE PROVIDER meds that are DCed or will be [...] mouth daily. Your Inpatient Medical Team at [facility] Name(s) of your inpatient provider(s): Drs. Andres Thompson, Cory Tellez, Ernesto Cardona, Gustabo Garza For questions regarding issues relating to your hospitalization on the Hospital Medicine Service, please contact your inpatient physician through the [facility] Head Of Biology [phone]. Issues after hours and on weekends will be handled by the Hospitalist staff on-call. Your Primary Care Provider GINA MANZO MD [phone] General Instructions None Future Appointments and Orders Future Appointments: Provider: Department: Dept Phone: Center: 12/28/2012 8:45 AM Ultrasound 2 [facility] RAD ULTRASOUND [phone] None 12/28/2012 11:30 AM Paty Pedraza APRN Gastroenterology [phone] [facility] Discharge References/Attachments: Discharge References/Attachments None Inpatient Provider Contact Information: For questions regarding this document or issues relating to this hospitalization on the Medical Service, please contact your inpatient physician through the [facility] Head Of Biology . Issues afterhours and on weekends will be handled by the Hospitalist staff on-call. Electronically Signed by: OCRY TELLEZ MD 12/07/2012 * Plan of Care [...] study. Patient has taken the 2000cc of Glipho ordered this afternoon. Medicated for nausea per JUN. * Op Note - Ernesto Cardona MD - 12/05/2012 5:03 PM EDT [facility] Operative Note Patient Name: Alonzo Urbina : [id number] MR#: [id number] Case Date: 12/05/2012 Surgeon: Surgeon(s) and Role: [...] 0 minutes ESTELA BARBA, PT 12/05/2012 Pager: [phone] Physical Therapy Rehabilitation Department * Plan of [...] - 12/02/2012 11:59 PM EDT . [facility] Section of Gastroenterology and Hepatology Initial Inpatient Consultation Patient Name: Alonzo Urbina : 1955 Referring provider: Dr. Granados, medicine Date of Consult: 12/02/12 Reason for Consult: UGIB History of Present Illness: Alonzo Urbina is a 57 y.o. , [facility] s/o ETOH abuse (sober 12/21), HCV (PEG [...] daily use. Had colonoscopy at [facility] reportedly WNL. Last EGD09/21 Dr. [...] 8:15 AM EST Office Visit Dermatology at [place] [address] [facility] [place] [address] Jin Nunez MD [address] [place] [address] documented as of this encounter Procedures Procedure Name Priority Date/Time Associated Diagnosis Comments E BUSINESS PROJECT MANAGER SCAN 12/08/2012 3:03 PM EDT LAB SCAN [...] in this encounter Results * SCAN DOC: E BUSINESS PROJECT MANAGER (12/08/2012 3:03 PM EDT) Anatomical Region Laterality [...] EDT Cory Tellez MD HEMATOLOGY ORDERABLE S [facility] [employer] * (ABNORMAL) CBC (with Diff) (12/07/2012 9:02 [...] AM EDT) VIDEO CAPSULE ENDOSCOPY [facility] Endoscopy ___ Patient Name: Alonzo Urbina ? Procedure Date: 12/06/2012 8:00 AM ? Date of : 1955 ? Age: 57 ? Order #: [id number] ? ___ Procedure: ? Video capsule endoscopy [...] EDT Param Granados MD HEMATOLOGY ORDERAB LES [facility] [facility]NIUM * (ABNORMAL) Hepatic Function Panel (12/06/2012 [...] In Lab Cory Tellez MD CHEMISTRY ORDERABLES [facility] ADDIIUM * (ABNORMAL) Basic Metabolic Panel (non-fasting) (12/06/2012 6:12 AM EDT) Glucose 126 60 - 199 mg/dL CERNER MILLENNIUM Comment:Diabetes: >=200 mg/d L plus symptoms Blood Urea Nitrogen 8(L) 10 - 20 mg/dL CERNER MILLENNIUM Creatinine 0.84 0.80 - 1.50 mg/dL CERNER MILLENNIUM Comment: Please note that the pediatric reference intervals supplied above were not validated at [facility]. Results from pediatric patients should be interpreted [...] (12/05/2012 11:38 AM EDT) COLONOSCOPY [facility] Endoscopy ___ Patient Name: Alonzo Urbina ? Procedure Date: 12/05/2012 11:38 AM ? Date of : 1955 ? Age: 57 ? Order #: [id number] ? ___ Procedure: ? Colonoscopy Indications: ? Gastrointestinal occult blood loss Providers: ? Ernesto Cardona MD, Ariana Austin, ? , Davi Kapadia, RN, Janie Blood ? Marv Bobbin Trucker Referring MD: ? Medicines: ? Midazolam 4 [...] ? throughout the colon, may be ? district representative of portal hypertension. Recommendation: ?- Although [...] EDT Param Granados MD HEMATOLOGY ORDERAB LES [facility] * (ABNORMAL) Basic Metabolic Panel (non-fasting) (12/05/2012 5:39 AM EDT) [facility] Glucose 135 60 - 199 mg/dL CERNER MILLENNIUM Comment:Diabetes: >=200 mg/d L plus symptoms Blood Urea Nitrogen 14 10 - 20 mg/dL CERNER MILLENNIUM Creatinine 0.92 0.80 - 1.50 mg/dL CERNER MILLENNIUM Comment: Please note that the pediatric reference intervals supplied above were not validated at [facility]. Results from pediatric patients should be interpreted [...] Platelet Volume 9.3 9.0 - 12.0 fL [facility] MILL[facility]NIUM Blood specimen (specimen) 12/05/2012 5:39 AM EDT 12/05/2012 6:00 AM EDT Narrative Resulting Agency Comment Spec In Lab Param Granados MD HEMATOLOGY ORDERAB LES [facility] FONTA[facility] * (ABNORMAL) Hemoglobin and Hematocrit, blood (12/04/2012 9:55 PM EDT) Hemoglobin 7.6(L) 13.7 - 17.5 gm/dL [facility] Hematocrit 22.9(L) 40.0 - 51.0 % [facility] CORINEENNIUM Blood specimen (specimen) 12/04/2012 9:55 PM EDT 12/04/2012 10:07 PM EDT Narrative Resulting Agency Comment Spec In Lab Cory Tellez MD HEMATOLOGY ORDERABLE S [facility] * APTT (12/04/2012 3:13 PM EDT) Partial Thromboplastin Time 31 25 - 35 sec [facility] CORINEENNIUM Comment: Recommended therapeutic PTT range for [...] HEMATOLOGY ORDERABLE S Performing Organization Address [facility]/ZIP Co de Phone Number CERSIDDHARTH POOLENNIUM * (ABNORMAL) Basic Metabolic Panel (non-fasting) (12/04/2012 3:13 PM EDT) Glucose 118 60 - 199 mg/dL CERNER MILLENNIUM Comment:Diabetes: >=200 mg/d L plus symptoms Blood Urea Nitrogen 20 10 - 20 mg/dL CERNER MILLENNIUM Creatinine 0.94 0.80 - 1.50 mg/dL CERNER MILLENNIUM Comment: Please note that the pediatric reference intervals supplied above were not validated at [facility]. Results from pediatric patients should be interpreted [...] Tellez MD CHEMISTRY ORDERABLES Performing Organization Address [facility] Co de Phone [...] Tellez MD CHEMISTRY ORDERABLES Performing Organization Address [facility] de Phone Number THEO FONTANAIUM * (ABNORMAL) Prothrombin Time (12/04/2012 3:13 PM EDT) Prothrombin Time 16.2(H) 12.0 - 15.0 sec CERNER MILLENNIUM Comment: [facility] Transfusion Committee Guidelines: INR less than [...] HEMATOLOGY ORDERABLE S Performing Organization Address [facility] de Phone Number THEO FONTANAIUM * (ABNORMAL) Hemoglobin and Hematocrit, blood (12/04/2012 9:13 AM EDT) Hemoglobin 7.7(L) 13.7 - 17.5 gm/dL CERNER MILLENNIUM Hematocrit 23.9(L) 40.0 - 51.0 % CERNER MILLENNIUM Blood specimen (specimen) 12/04/2012 9:13 AM EDT 12/04/2012 9:19 AM EDT Narrative Resulting Agency Comment Spec In Lab Cory Tellez MD HEMATOLOGY ORDERABLE S Performing Organization Address [facility] de Phone Number THEO FONTANAIUM * (ABNORMAL) Hemoglobin and Hematocrit, blood (12/04/2012 6:32 AM EDT) Hemoglobin 8.0(L) 13.7 - 17.5 gm/dL CERNER MILLENNIUM Hematocrit 23.8(L) 40.0 - 51.0 % CERNER MILLENNIUM Blood specimen (specimen) 12/04/2012 6:32 AM EDT 12/04/2012 6:58 AM EDT Narrative Resulting Agency Comment Spec In Lab Cory Tellez MD HEMATOLOGY ORDERABLE S [facility]NIUM * Ammonia (12/04/2012 6:32 AM EDT) Ammonia 30 16 - 60 mcmol/L CERNER MILLENNIUM Blood specimen (specimen) 12/04/2012 6:32 AM EDT 12/04/2012 6:57 AM EDT Narrative Resulting Agency Comment Spec In Lab Cory Tellez MD CHEMISTRY ORDERABLES [facility] * (ABNORMAL) Hemoglobin and Hematocrit, blood (12/03/2012 11:08 PM EDT) Hemoglobin 8.2(L) 13.7 - 17.5 gm/dL CERNER MILLENNIUM Hematocrit 24.5(L) 40.0 - 51.0 % CERNER MILLENNIUM Blood specimen (specimen) 12/03/2012 11:08 PM EDT 12/03/2012 11:13 PM EDT Narrative Resulting Agency Comment Spec In Lab Cory Tellez MD HEMATOLOGY ORDERABLE S Performing Organization Address [facility] Co de Phone Number [facility] MILLENNIUM * (ABNORMAL) Hemoglobin and Hematocrit, blood (12/03/2012 4:50 PM EDT) Hemoglobin 8.2(L) 13.7 - 17.5 gm/dL CERN[facility] MILLENNIUM Hematocrit 25.1(L) 40.0 - 51.0 % [facility] MILLENNIUM Blood specimen (specimen) 12/03/2012 4:50 PM EDT 12/03/2012 4:50 PM EDT Narrative Resulting Agency Comment Spec In Lab Cory Tellez MD HEMATOLOGY ORDERABLE S [facility] * Transfuse RBC (12/03/2012 12:06 PM [...] OF CARE TEST ORDERABLES Performing Organization Address City/[facility]/ZIP Co de Phone Number THEO ARCOS [...] Panel (non-fasting) (12/03/2012 6:33 AM EDT) Pathologist [facility] Glucose 128 60 - 199 mg/dL CERNER MILLENNIUM Comment:Diabetes: >=200 mg/d L plus symptoms Blood Urea Nitrogen 42(H) 10 - 20 mg/dL CERNER MILLENNIUM Creatinine 0.86 0.80 - 1.50 mg/dL CERNER MILLENNIUM Comment: Please note that the pediatric reference intervals supplied above were not validated at [facility]. Results from pediatric patients should be interpreted [...] Lab Param Granados MD CHEMISTRY ORDERABL ES [facility] MILLENNIUM * (ABNORMAL) CBC (with Diff) (12/03/2012 [...] HEMATOLOGY ORDERAB LES Performing Organization Address [facility] de Phone Number THEO ARCOS * Transfuse RBC (12/03/2012 5:33 AM EDT) Sharon Gill MD NURSING TREATMENT O RDERABLES - BLOOD ADMIN * Transfuse RBC (12/03/2012 5:33 AM EDT) Sharon Gill MD NURSING TREATMENT O RDERABLES - BLOOD ADMIN * POCT Glucose (12/03/2012 1:26 AM EDT) Glucose, POC 105 60 - 199 mg/dL [facility] Comment: Supplemental ranges: <110 mg/dL before meals <200 mg/dL all other times of the day Blood specimen (specimen) 12/03/2012 1:26 AM EDT 12/03/2012 1:26 AM EDT Param Granados MD POINT OF CARE TEST ORDERABLES Performing Organization Address [facility] Phone Number THEO ARCOS * Prepare RBC (12/02/2012 11:00 PM EDT) Dispensed? Yes THEO POOLLOS [facility] Blood specimen (specimen) 12/02/2012 11:00 PM EDT 12/02/2012 10:59 PM EDT Sharon Gill MD BLOOD BANK PRODUCT ORDERABLES Performing Organization Address [facility] de Phone Number [facility] * Selected Cell Screen (12/02/2012 [...] HEMATOLOGY ORDERABL ES Performing Organization Address [facility] Co de Phone Number THEO POOLENNIUM * Gold Tube HOLD (12/02/2012 10:30 PM EDT) Gold Hold Sample in lab. THEO FONTANAIUM Blood specimen (specimen) 12/02/2012 10:30 PM EDT 12/02/2012 10:33 PM EDT Sharon Gill MD CHEMISTRY ORDERABLE S Performing Organization Address [facility] de Phone Number THEO POOLENNIUM * (ABNORMAL) APTT (12/02/2012 10:30 PM EDT) Partial Thromboplastin Time 36(H) 25 - 35 sec [facility] [facility] Comment: Recommended therapeutic PTT range for full dose unfractionated heparin is 80-114 seconds. Blood specimen (specimen) 12/02/2012 10:30 PM EDT 12/02/2012 10:33 PM EDT Narrative Resulting Agency Comment Spec In Lab Sharon Gill MD HEMATOLOGY ORDERABL ES Performing Organization Address [facility] Co de Phone Number THEO POOLENNIUM * (ABNORMAL) Prothrombin Time (12/02/2012 10:30 PM EDT) Prothrombin Time 16.8(H) 12.0 - 15.0 sec [facility] [employer] Inc[facility]ERRA V[facility] CENTERIUM Comment: [facility] Transfusion Committee Guidelines: INR less than [...] intervals supplied above were not validated at [facility]. Results from pediatric patients should be interpreted [...] Lab Sharon Gill MD CHEMISTRY ORDERABLE S [facility] CORINEENNIUM * (ABNORMAL) BUN (12/02/2012 10:30 PM EDT) Blood Urea Nitrogen 41(H) 10 - 20 mg/dL CERNER MILLENNIUM Blood specimen (specimen) 12/02/2012 10:30 PM EDT 12/02/2012 10:33 PM EDT Narrative Resulting Agency Comment Spec In Lab Sharon Gill MD CHEMISTRY ORDERABLE S [facility] CORINEENNIUM * (ABNORMAL) Electrolytes panel (12/02/2012 10:30 [...] RN)[id number] (Given - Provider: Socorro Lomeli RN) 0343 (Given - Provider: Socorro Lomeli RN) traZODone [...] ineffective documented in this encounter Care Teams Automatic Transmission Mechanic Relationship Specialty Start Date End Date Gina Manzo MD [address] [place] [address] PCP - General 03/03/10 02/12/19 documented as of this encounter
--- OUTSIDE RECORDS SUMMARY | 2024-01-20 15:51 | XMS_ITS | Encounter Summary ---
Author [place] [address] Care Team Providers Care Tube Carrier Name Role Phone Laurie Wiggins MD Primary Care Provider [phone]- [phone] Encounter Details Date Type Department Care Team (Late st Contact Info) Description 06/25/2010 8:00 AM EDT Procedure [place] [address] Boo Browne MD [facility] [place] [address] Social History Tobacco Use Types Packs/Day Years [...] 8:15 AM EST Office Visit Dermatology at [place] [address] [place] [id number] Jin Nunez MD [address], [place] [address] documented as of this encounter Visit Diagnoses Not on filedocumented in this encounter Care Teams Tube Carrier Relationship Specialty Start Date End Date Laurie Wiggins MD [address] [place] [address] PCP - General 03/03/10 02/12/19 documented as of this encounter
--- OUTSIDE RECORDS SUMMARY | 2024-01-20 15:51 | XMS_ITS | Referral Summary ---
Author Organization [facility] Address [address] [place] [address] Care Team Providers Care Hot Strip Mill Inspector Name Role Phone George Lou NORMA Primary Care Provider +1 -[phone] Encounters Date Type Department Care Team Description 12/23/2023 Orders Only [facility] Interventional Radiology - [address] [address] Echo Doe, MELY Liver lesion (Primary Dx) 12/23/2023 Orders Only [facility] Interventional Radiology - Main [address] [address] Echo Doe, RN Alcoholic cirrhosis, unspecified whether ascites present (HCC-CMS) (Primary Dx) 12/22/2023 7:33 EDT - 12/22/2023 23:59 EDT Hospital Encounter [facility] Radiology [address] [id number] Discharge Disposition: Home or Self Care 12/21/2023 Orders Only [facility] Hematology & Oncology - [address] [address] Shantal Albarran RN 12/21/2023 16:30 EDT Tumor Board [facility] Hematology & Oncology [address] [address] Hepatocellular carcinoma (HCC-CMS) (Primary Dx) 11/25/2023 15:17 EDT - 11/25/2023 23:59 EDT Hospital Encounter [facility] Radiology [address] [address] Discharge Disposition: Home or Self Care 11/25/2023 Orders Only [facility] Interventional Radiology [address] [address] Echo Doe RN Alcoholic cirrhosis of liver without ascites (HCC-CMS) (Primary Dx) 11/17/2023 15:07 EDT - 11/17/2023 23:59 EDT Hospital Encounter [address] [facility] [address] [place] [address] Cirrhosis (HCC-CMS) Discharge Disposition: Home or Self Care 11/17/2023 11:03 EDT - 11/17/2023 15:06 EDT Hospital Encounter [facility] Radiology [address] [address] Cirrhosis (HCC-CMS) Discharge Disposition: Home or Self Care 11/07/2023 Telephone [facility] Interventional Radiology [address] [address] Guicho Rosales MD Appointment Related from Last [...] times daily. Obtaining through Patient Assistance Program ([employer]), approved on 05/31/19 x1 year. 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 ([facility]) 01/08/2014 Overview: This diagnosis was [...] ICD10 Update Auto Replacement Cirrhosis of liver ([facility]) 03/14/2013 Resolved Problems Problem Noted [facility] - [address] [address] Bon Gutierrez MD [address] [place] [address], [address] [place] [address] 09/10/2024 10:00 EDT Appointment Shaina Bergeron Ultrasound [address] [place] [address] Medical Devices Implanted Type Area Fixed Capital Clerk Device Identifier Shelf Expiration Date Model / [...] performed for the imaging exams listed above. [id number] Resulting Agency Comment [id number] Procedure Note Cole Leblanc MD - 12/08/2023 TUMOR BOARD IMAGING REVIEW Tumor board: Liver tumor board Date of tumor board: 12/07/2023 Indication: Liver lesions. Imaging studies reviewed: Abdominal MRI with and without contrast 11/17/2023 Comments: A focused interpretation for the purpose of tumor board/MDC discussion wasperformed for the imaging exams listed above. [id number] Filipe Sarmiento MD IMG CT ORDERABLES * MR ABDOMEN W WO CONTRAST (11/17/2023 18:13 EDT) Anatomical Region Laterality Modality Body, Abdomen Magnetic Resonan ce 11/18/2023 10:3 7 EDT Addenda Addendum by Blake Fuentes MD on 11/25/2023 9:35 EDT Addendum: MRI of the abdomen with and without IV contrast was performed. [id number] Impressions 11/18/2023 10:37 EDT Lesion #1: Segment [...] ongoing routine MRI surveillance for hepatocellular carcinoma. [id number] Narrative 11/18/2023 10:37 EDT MR ABDOMEN W [...] Localizer: No additional findings. Resulting Agency Comment [id number] Procedure Note Blake Fuentes MD - 11/18/2023 [...] is ongoing routine MRIsurveillance for hepatocellular carcinoma. [id number] Norbert Sabrina TORI IMG MRI ORDERABLES * US ABDOMEN LIMITED [...] malfunction. AJR Am J Roentgenol. 1996. May;168(2):467-72. [id number] Narrative 11/19/2023 13:29 EDT US ABDOMEN LIMITED WITH COMPLETE DUPLEX ??11/17/2023 1:41 PM SIGNS AND SYMPTOMS/COMMENTS: Cirrhosis COMPARISONS: Ultrasound abdomen from 10/10/2023 GRAYSCALE: TECHNIQUE: Grayscale ultrasound images of the liver were obtained. INDICATION FOR GRAYSCALE: Evaluate for structural abnormality Resulting Agency Comment [id number] Procedure Note Madelaine Francois MD - 11/19/2023 [...] intrahepaticportosystemic shunt malfunction. AJR Am J Roentgenol. 1996.May;168(2):467-95. [id number] Norbert Bennett PA-C [facility] [place] ORDERABLES * HCV RNA DETECT QUANT (06/28/2018 6:56 EDT) HCV RNA Detect Quant Undetected Undetected IU/mL 06/29/2018 16:21 EDT [facility] Comment: Reference Range: ??Undetected The quantification range of this assay is 15 IU/mL to 100,000,000 IU/mL. Testing was performed by the Mili Ampliprep/Mili TaqMan HCV v2.0 ([employer] Blood specimen (specimen) BLOOD SPECIMEN / Unknown 06/28/2018 6:56 EDT 06/28/2018 7:13 EDT Zac Whitaker MD CHEMISTRY & BLOOD G ORDERABLES [facility] [address] [place] [phone] from Last 3 Months or Most Recently Relevant to Health Maintenance Advance Directives For more information, please contact: [phone] Documents on File Type Date Recorded Patient Director It Project Expl anation COLST/MOLST 09/15/2018 12:25 2013-03-26 DN [...] in the Discussion? 1. Patient Care Teams Hot Strip Mill Inspector Relationship Specialty Start Date End Date George Lou RPA [address] [place] [address] PCP - General Family Medicine - Primary Care 09/21/22
--- OUTSIDE RECORDS SUMMARY | 2024-01-20 15:51 | XMS_ITS | Encounter Summary ---
[place] [address] Care Team Providers Care Dinkey Operator Slag Name Role Phone Unavailable Primary Care Provider Unavailabl e Encounter Details Date Type Department Care Team (Late st Contact Info) Description 02/16/2010 9:30 AM EST Procedure [place] [address] Brody Beebe MD [facility] [place] [address] Social History Tobacco Use Types Packs/Day Years [...] 8:15 AM EST Office Visit Dermatology at [place] [address] [place] [address] Jin Nunez MD [address], [place] [address] documented as of this encounter Visit Diagnoses Not on filedocumented in this encounter
--- OUTSIDE RECORDS SUMMARY | 2024-01-20 15:51 | XMS_ITS | Encounter Summary ---
Author Organization [facility] Address [address] [place] [address] Care Team Providers Care At[employer]T Retailer Sales Consultant Name Role Phone George Lou NORMA Primary Care Provider +1 -[phone] Encounter Details Date Type Department Care Team (Late st Contact Info) Description 12/23/2023 Orders Only [facility] Interventional Radiology - Main [place] [address] [place] [address] Echo Doe RN Alcoholic cirrhosis, unspecified whether ascites present ([facility]) (Primary Dx) Social History Tobacco Use Types [...] Visit [facility] General Surgery - [address] [address] Bon Gutierrez MD [address] [facility], [facility], [address] [place] [address] 09/10/2024 10:00 EDT Appointment Shaina Mejia [address] [place] [address] Scheduled Orders Name Type Priority [...] Primary documented in this encounter Care Teams At[employer]T Retailer Sales Consultant Relationship Specialty Start Date End Date George Lou RPA [address] [place] [address] PCP - General Family Medicine - Primary Care 09/21/22 documented as of this encounter
--- OUTSIDE RECORDS SUMMARY | 2024-01-20 15:51 | XMS_ITS | Encounter Summary ---
[place] [address] Care Team Providers Care Light Coil Winder Name Role Phone Laurie Wiggins MD Primary Care Provider +1- [phone] Reason for Visit * Reason Comments Cirrhosis Hepatitis C Encounter Details Date Type Department Care Team (Late st Contact Info) Description 07/29/2010 11:00 AM EDT [place] [address] Paty Pedraza APRN [facility] [place] [address] Cirrhosis (Primary Dx) Discharge Disposition: Home Social [...] underwent serial variceal band ligation ( at [facility]and was banded in December 2007 (6 bands), January 2008 ( 4 bands) and April of 2008 (3 bands). 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
--- OUTSIDE RECORDS SUMMARY | 2024-01-20 15:51 | XMS_ITS | Encounter Summary ---
Author Organization [facility] Address [address] [place] [address] Care Team Providers Care Program Paraprofessional Name Role Phone CarmineGeorge Ruby GREEN Primary Care Provider [phone] [phone] Reason for Referral * Radiology Services (Routine/Next Available) - Receiving Office to Obtain Authorization Specialty Diagnoses / Procedures Referred By Tad alcaraz Referred To Contact Procedures TUMOR BOARD RADIOLOGY CONSULT LIVER TUMOR BOARD RADIOLOGY CONSULT NON BREAST Filipe Sarmiento MD [address] [place] [address] [address] [place] [address] Referral ID Status Reason Start Date Expiration Date Visits Requested Visits Authorized [id number] Receiving Office to Obtain Authorization 12/21/2023 1 1 Encounter Details Date Type Department Care Team (Late st Contact Info) Description 12/21/2023 Orders Only [facility] Hematology & [place] [address] Shantal Albarran RN Social History Tobacco Use [...] Notes * Shantal Albarran RN - 12/21/2023 6989 EDT tumor documented in this encounter Plan of Treatment Upcoming Encounters Date Type Department Care Team (Late st Contact Info) Description 01/23/2024 10:00 EDT Office Visit [facility] General Surgery - [address] [address] Bon Gutierrez MD [address] [facility], [address] [place] [address] 09/10/2024 10:00 EDT Appointment Shaina Bergeron Ultrasound [address] [place] [address] Pending Results Name Type Priority Associated Diagnoses Date /Time TUMOR BOARD RADIOLOGY CONSULT LIVER Imaging Routine 12/22/2023 7:33 EDT Scheduled Orders Name Type Priority Associated Diagnoses Orde r Schedule TUMOR BOARD RADIOLOGY CONSULT LIVER Imaging Routine Expected: 2023, Expires: 12/20/2024 documented as of this encounter Visit Diagnoses Not on filedocumented in this encounter Care Teams Program Paraprofessional Relationship Specialty Start Date End Date George Lou RPA [address] [place] [address] PCP - General Family Medicine - Primary Care 09/21/22 documented as of this encounter
--- OUTSIDE RECORDS SUMMARY | 2024-01-20 15:51 | XMS_ITS | Encounter Summary ---
[facility] [place] [address] Care Team Providers Care Oil Pipe Inspector Helper Name Role Phone Laurie Wiggins MD Primary Care Provider [phone]- [phone] Encounter Details Date Type Department Care Team (Latest Contact Info) Description 06/25/2010 7:36 AM EDT - 06/25/2010 11:00 AM EDT Hospital En[place] [address] Boo Browne MD [facility] [place] [address] Discharge Disposition: Home Social History Tobacco Use [...] 8:15 AM EST Office Visit Dermatology at [place] [address] [facility] [address] [place] [address] Jin Nunez MD [address] [facility], [place] [address] documented as of this encounter Visit Diagnoses Not on filedocumented in this encounter Care Teams Oil Pipe Inspector Helper Relationship Specialty Start Date End Date Laurie Wiggins MD [address] [place] [address] PCP - General 03/03/10 02/12/19 documented as of this encounter
--- OUTSIDE RECORDS SUMMARY | 2024-01-20 15:51 | XMS_ITS | Encounter Summary ---
[place] [address] Care Team Providers Care Liquor Blender Name Role Phone George Lou Primary Care Provider [phone] Encounter Details Date Type Department Care Team (Late st Contact Info) Description 11/30/2007 [place] [address] Shaun Zavala MD GASTROENTEROLOGY Social History Tobacco [...] 8:15 AM EST Office Visit Dermatology at [place] [address] [place] [address] Jin Nunez MD [address], [place] [address] documented as of this encounter Procedures Procedure Name Priority Date/Time Associated Diagnosis Comments SURGICAL PATHOLOGY REPORT Routine 11/30/2007 3:08 PM EDT documented in this encounter Results * Surgical Pathology Report (11/30/2007 3:08 PM EDT) Surgical Pathology Report [id number] ? Location: 4T The signing pathologist has [...] report in rendering the final pathologic diagnosis. [facility] 11/30/2007 3:08 PM EDT Shaun Zavala MD PATHOLOGY/CYTOLOGY ORDERABLES [facility] documented in this encounter Visit Diagnoses Not on filedocumented in this encounter Care Teams Liquor Blender Relationship Specialty Start Date End Date George Lou PA [address] [place] [address] PCP - General Internal Medicine 11/12/22 documented as of this encounter
--- OUTSIDE RECORDS SUMMARY | 2024-01-20 15:51 | XMS_ITS | Encounter Summary ---
[place] [address] Care Team Providers Care Service Engineer Name Role Phone Laurie Wiggins MD Primary Care Provider [phone] Reason for Visit * Reason Comments Cirrhosis Encounter Details Date Type Department Care Team (Late st Contact Info) Description 08/10/2012 1:00 PM EDT Follow-Up [place] [address] Paty Pedraza APRN [facility] [place] [address] Cirrhosis of liver (Primary Dx); Chronic hepatitis [...] underwent serial variceal band ligation ( at [facility])and was banded in December 2007 (6 bands), January 2008 ( 4 bands) and April of 2008 (3 bands). 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 I have explained that as an COMPUTER HELP DESK SPECIALIST my opinion is unlikely to be enough [...] 8:15 AM EST Office Visit Dermatology at [place] [address] [facility] [place] [address] Jin Nunez MD [address], [place] [address] documented as of this encounter Visit Diagnoses Diagnosis Cirrhosis of liver- Primary Cirrhosis of liver without mention of alcohol Chronic hepatitis C Chronic hepatitis C without mention of hepatic coma documented in this encounter Care Teams Service Engineer Relationship Specialty Start Date End Date Laurie Wiggins MD [address] [place] [address] PCP - General 03/03/10 02/12/19 documented as of this encounter
--- OUTSIDE RECORDS SUMMARY | 2024-01-20 15:51 | XMS_ITS | Encounter Summary ---
Author Organization [facility] Address [address] [place] [address] Care Team Providers Care Firer Glost Kiln Name Role Phone CarmineGeorge NORMA Primary Care Provider [phone] -[phone] Reason for Referral * Radiology Services (Routine/Next Available) - Receiving Office to Obtain Authorization Specialty Diagnoses / Procedures Referred By Contac t Referred To Contact Procedures TUMOR BOARD RADIOLOGY CONSULT LIVER TUMOR BOARD RADIOLOGY CONSULT NON BREAST Filipe Sarmiento MD [address] [place] [phone] Referral ID Status Reason Start Date Expiration Date Visits Requested Visits Authorized [id number] Receiving Office to Obtain Authorization 12/21/2023 1 1 Reason for Visit * Radiology Services (Routine/Next Available) - Receiving Office to Obtain Authorization Specialty Diagnoses / Procedures Referred By Contac t Referred To Contact Procedures TUMOR BOARD RADIOLOGY CONSULT LIVER TUMOR BOARD RADIOLOGY CONSULT NON BREAST Filipe Sarmiento MD [address] [place] [phone] Referral ID Status Reason Start Date Expiration Date Visits Requested Visits Authorized [id number] Receiving Office to Obtain Authorization 12/21/2023 1 1 Encounter Details Date Type Department Care Team (Latest Contact Info) Description 12/22/2023 7:33 EDT - 12/22/2023 23:59 EDT Hospital Encounter [facility] Radiology - Main [address] [address] Discharge Disposition: Home or Self Care Social [...] times daily. Obtaining through Patient Assistance Program ([employer]), approved on 05/31/19 x1 year. Phone number for PAP: [phone] semaglutide (OZEMPIC) subcutaneous pen Inject into the [...] Office Visit [facility] General Surgery - [address] [address] Bon Gutierrez MD [address] [facility], [address] [place] [address] 09/10/2024 10:00 EDT Appointment Shaina Mejia [address] [place] [phone] Pending Results Name Type Priority Associated Diagnoses Date /Time TUMOR BOARD RADIOLOGY CONSULT LIVER Imaging Routine 12/22/2023 7:33 EDT Scheduled Orders Name Type Priority Associated Diagnoses Orde r Schedule TUMOR BOARD RADIOLOGY CONSULT LIVER Imaging Routine [address] arting 12/22/2023 until 12/22/2023 documented as of this encounter Visit Diagnoses Not on filedocumented in this encounter Care Teams Firer Glost Kiln Relationship Specialty Start Date End Date George Lou RPA [address] [place] [address] PCP - General Family Medicine - Primary Care 09/21/22 documented as of this encounter
--- OUTSIDE RECORDS SUMMARY | 2024-01-20 15:51 | XMS_ITS | Encounter Summary ---
[place] [address] Care Team Providers Care Information Clerk Automobile Club Name Role Phone Laurie Wiggins MD Primary Care Provider [phone]- [phone] Encounter Details Date Type Department Care Team (Late st Contact Info) Description 08/24/2010 Orders [place] [address] Paty Pedraza [facility] [place] [address] Cirrhosis (Primary Dx) Social History Tobacco Use [...] AM EST Office Visit Dermatology at [place] [address] [place] [address] Jin Nunez MD [address], [place] [address] documented as of this encounter Results * US abdomen complete (01/29/2011 10:06 AM EDT) Anatomical Region Laterality Modality Abdomen, Vascular Ultrasound 01/29/2011 10:0 6 AM EDT Narrative 01/29/2011 10:17 AM EDT ?Abdominal Report ? (Signed Final 01/29/2011 10:17 am) Patient Info ID: ? [id number] ? : ??[birth year] (55 yrs) Name: ? ALMA CARBALLO ? Visit Date: 01/29/2011 09:56 am Performed By Performed By: ?MANDEEP Raza ??Janie Associate: ? Elle LESTER, Leonardo Junior Attending: ? Nicolasa LESTER, Dahlia Junior Referred By: ? AKIKO Morris APRN Accession#: ?[id number] Service(s) Provided [facility] - Abdominal Complete Survey - [id number] ? [id number] Indications Cirrhosis, screen for HCC ----- Liver [...] Final 01/29/2011 10:17 am) Patient Info ID: [id number] : [birth year] (55 yrs) Name: ALMA CARBALLO Visit Date: 01/29/2011 09:56 am Performed By Performed By: MANDEEP Raza Associate: Elle LESTER, Leonardo Junior Attending: Dahlia Baldwin MD Referred By: AKIKO Morris APRN Service(s) Provided [facility] - Abdominal Complete Survey - [id number] Indications Cirrhosis, screen for HCC ----- Liver [...] alcohol documented in this encounter Care Teams Information Clerk Automobile Club Relationship Specialty Start Date End Date Laurie Wiggins MD [address] [place] [address] PCP - General 03/03/10 02/12/19 documented as of this encounter
--- OUTSIDE RECORDS SUMMARY | 2024-01-20 15:51 | XMS_ITS | Encounter Summary ---
[place] [address] Care Team Providers Care Real Estate Valuer Name Role Phone Laurie Wiggins MD Primary Care Provider +1- [phone] Reason for Visit * Reason Comments GI Problem Encounter Details Date Type Department Care Team (Late st Contact Info) Description 12/15/2011 11:00 AM EDT [place] [address] Paty Pedraza APRN [facility] [place] [address] Cirrhosis (Primary Dx) Discharge Disposition: Home Social [...] underwent serial variceal band ligation ( at [facility])and was banded in December 2007 (6 bands), January 2008 ( 4 bands) and April of 2008 (3 bands). 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 Reference: Immulite 2000 AFP package insert ([id number], 2009-01-02) Blood specimen (specimen) 09/27/2012 8:29 AM EDT 09/27/2012 12:28 PM EDT Narrative Resulting Agency Comment Spec In Lab Clemencia Hernandez MD CHEMISTRY ORDERABLE S [facility] * Prothrombin Time (09/27/2012 8:29 AM EDT) Prothrombin Time 14.1 12.0 - 15.0 sec THEO ARCOS Comment: [facility] Transfusion Committee Guidelines: INR less [...] intervals supplied above were not validated at [facility]. Results from pediatric patients should be interpreted [...] Lab Clemencia Hernandez MD CHEMISTRY ORDERABLE S [facility] CORINEENNIUM * (ABNORMAL) CBC (with [...] Comment Spec In Lab Clemencia Hernandez MD [facility] THEO ARCOS * abdomen complete (04/17/2012 10:57 AM EST) Anatomical Region Laterality Modality Abdomen, Vascular Ultrasound 04/17/2012 10:5 7 AM EST Narrative 04/17/2012 11:44 AM EST ?Abdominal ? (Signed Final 04/17/2012 11:44 am) Patient Info ID: ? [id number] ? : ??[birth year] (56 yrs) Name: ? ALMA CARBALLO ? Visit Date: 04/17/2012 10:49 am Performed By Performed By: ?Any Pike Associate: ? Torres Aguilar MD Attending: ? Blake Case MD Referred By: ? CLEMENCIA HERNANDEZ MD Service(s) Provided [facility] - Abdominal Complete Survey - [phone] ? [id number] Indications Cirrhosis ----- Liver ----- Right Lobe [...] Final 04/17/2012 11:44 am) Patient Info ID: [id number] : 51 (56 yrs) Name: ALMA CARBALLO Visit Date: 04/17/2012 10:49 am Performed By Performed By: Any Pike Associate: Lauren LESTER, Torres Junior Attending: Blake Case MD Referred By: CLEMENCIA HERNANDEZ MD Service(s) Provided [facility] - Abdominal Complete Survey - [phone] Indications Cirrhosis ----- Liver ----- Right Lobe [...] 12-20-2011. Reference: Immulite 2000 AFP package insert ([id number], 2009-01-02) Blood specimen (specimen) 04/17/2012 8:52 AM EST 04/17/2012 12:01 PM EST Narrative Resulting Agency Comment Spec In Lab Clemencia Hernandez MD CHEMISTRY ORDERABLE S Performing Organization Address [facility] Phone Number THEO ARCOS * Prothrombin Time (04/17/2012 8:52 AM EST) Prothrombin Time 14.5 11.9 - 14.7 sec CERNER MILLENNIUM Comment: [facility] Transfusion Committee Guidelines: INR less [...] MD HEMATOLOGY ORDERABL ES Performing Organization Address [facility] Phone Number THEO ARCOS * (ABNORMAL) Comprehensive metabolic panel (non-fasting) (04/17/2012 8:52 AM EST) Glucose 118 60 - 199 mg/dL CERNER MILLENNIUM Comment:Diabetes: >=200 mg/d L plus symptoms Blood Urea Nitrogen 34(H) 10 - 20 mg/dL CERNER MILLENNIUM Creatinine 1.21 0.80 - 1.50 mg/dL CERNER MILLENNIUM Comment: Please note that the pediatric reference intervals supplied above were not validated at [facility]. Results from pediatric patients should be interpreted [...] MD HEMATOLOGY ORDERABL ES Performing Organization Address [facility] Co de Phone Number [facility] CORINEENNIUM * AFP tumor marker (12/15/2011 11:42 AM EDT) Alpha Fetoprotein 9 <=19 ng/mL [facility] MILLENNIUM Blood specimen (specimen) 12/15/2011 11:42 AM EDT 12/15/2011 2:26 PM EDT Narrative Resulting Agency Comment Spec In Lab Clemencia Hernandez MD CHEMISTRY ORDERABLE S Performing Organization Address [facility] Co de Phone Number [facility] CORINEENNIUM * Prothrombin Time (12/15/2011 11:42 AM EDT) Pathologist [facility] Prothrombin Time 14.5 11.9 - 14.7 sec CERNER MILLENNIUM Comment: [facility] Transfusion Committee Guidelines: INR less than 2.0, PTT less than OR equal to 43.5 seconds, or Fibrinogen greater than or equal to 100 mg/dl indicate adequate procoagulant activity for hemostasis in patients without underlying bleeding disorders. International Normalization Ratio 1.1 0.9 - 1.1 [facility] MILLENNIUM Blood specimen (specimen) 12/15/2011 11:42 AM EDT 12/15/2011 11:53 AM EDT Narrative Resulting Agency Comment Spec In Lab Clemencia Hernandez MD HEMATOLOGY ORDERABL ES Performing Organization Address [facility] de Phone Number [facility] * (ABNORMAL) Comprehensive metabolic panel (non-fasting) (12/15/2011 11:42 AM EDT) Glucose 74 60 - 199 mg/dL [facility] MILLENNIUM Comment:Diabetes: >=200 mg/d L plus symptoms Blood Urea Nitrogen 14 10 - 20 mg/dL [facility] MILLENNIUM Creatinine 0.60(L) 0.80 - 1.50 mg/dL CERNER MILLENNIUM Comment: Please note that the pediatric reference intervals supplied above were not validated at [facility]. Results from pediatric patients should be interpreted [...] Sadia AK, Jarvis TS, Yohana AD, Anival EBSSIE. Relative performance of the MDRD and CKD-EPI equations for estimating glomerular filtration rate among patients with varied clinical presentations. Clin J Am Soc Nephrol;6:1963-72. Blood specimen (specimen) 12/15/2011 11:42 AM EDT 12/15/2011 11:53 AM EDT Narrative Resulting Agency Comment Spec In Lab Clemencia Hernandez MD CHEMISTRY ORDERABLE S [facility] WRG Creative CommunicationENNIUM * (ABNORMAL) CBC (with Diff) (12/15/2011 11:42 [...] alcohol documented in this encounter Care Teams Real Estate Valuer Relationship Specialty Start Date End Date Laurie Wiggins MD [address] [place] [address] PCP - General 03/03/10 02/12/19 documented as of this encounter
--- OUTSIDE RECORDS SUMMARY | 2024-01-20 15:51 | XMS_ITS | Encounter Summary ---
[place] [address] Care Team Providers Care Verification Engineer Name Role Phone Laurie Wiggins MD Primary Care Provider +1- [phone] Encounter Details Date Type Department Care Team (Late st Contact Info) Description 09/15/2012 Orders [place] [address] Paty Pedraza, ENGINEERING WRITER [facility] [place] [address] Cirrhosis of liver (Primary Dx) Social History [...] AM EST Office Visit Dermatology at [place] [address] [place] [address] Jin Nunez MD [address], [place] [address] documented as of this encounter Procedures Procedure Name Priority Date/Time Associated Diagnosis Comments UPPER GI ENDOSCOPY Routine 12/03/2012 12 :07 PM EDT Cirrhosis of liver documented in this encounter Results * UPPER GI ENDOSCOPY (12/03/2012 12:07 PM EDT) Pathologist [facility] UPPER GI ENDOSCOPY [facility] Endoscopy Patient Name: Alonzo Urbina ? Procedure Date: 12/03/2012 12:07 PM ? Date of : 1955 ? Age: 57 ? Order #: [id number] ? Procedure: ? Upper GI endoscopy Indications: ? Melena Providers: ? Gustabo Garza MD, Ana ? MD Raman, Neyda Ames RN, ? Bernie Martinez, Janitorial Assistant Referring MD: ? Medicines: ? Fentanyl 150 [...] alcohol documented in this encounter Care Teams Verification Engineer Relationship Specialty Start Date End Date Laurie Wiggins MD [address] [place] [address] PCP - General 03/03/10 02/12/19 documented as of this encounter
--- OUTSIDE RECORDS SUMMARY | 2024-01-20 15:51 | XMS_ITS | Encounter Summary ---
[place] [address] Care Team Providers Care Home Assessment Nurse Name Role Phone Laurie Wiggins MD Primary Care Provider +1- [phone] Reason for Visit * Reason Comments Follow-up Encounter Details Date Type Department Care Team (Late st Contact Info) Description 01/29/2011 11:00 AM EDT Follow-[place] [address] CLINIC, Paty Verdugo APRN [facility] [address] GASTROENTER[place] [address] Cirrhosis (Primary Dx) Discharge Disposition: Home Social [...] this encounter Progress Notes * Paty Pedraza, ANTENNA MACHINE OPERATOR - 01/29/2011 10:27 AM EDT Subjective: [...] underwent serial variceal band ligation ( at [facility])and was banded in December 2007 (6 bands), January 2008 ( 4 bands) and April of 2008 (3 bands). 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 [...] 8:15 AM EST Office Visit Dermatology at [place] [address] [place] [address] Jin Nunez MD [address], [address] [address] [phone] (work) documented as of this encounter Procedures [...] HEMATOLOGY ORDERABL ES Performing Organization Address [facility] Co de Phone Number THEO POOLENNIUM * AFP tumor marker (01/29/2011 12:10 PM EDT) Alpha Fetoprotein 6 <=19 ng/mL CERNER MILLENNIUM Blood specimen (specimen) 01/29/2011 12:10 PM EDT 01/29/2011 2:40 PM EDT Gustabo Garza MD CHEMISTRY ORDERABLE S Performing Organization Address [facility] de Phone Number [facility] CORINEENNIUM * (ABNORMAL) Prothrombin Time (01/29/2011 12:10 PM EDT) Prothrombin Time 14.8(H) 12.3 - 14.7 sec CERNER MILLENNIUM Comment: [facility] Transfusion Committee Guidelines: INR less [...] HEMATOLOGY ORDERABL ES Performing Organization Address [facility] Co de Phone Number THEO POOLENNIUM * (ABNORMAL) Comprehensive metabolic panel (non-fasting) (01/29/2011 12:10 PM EDT) Glucose 163 60 - 199 mg/dL [facility] WhittlENNIUM Comment:Diabetes: >=200 mg/d L plus symptoms Blood [...] EDT Gustabo Garza MD HEMATOLOGY ORDERABL ES [facility] documented in this encounter Visit Diagnoses Diagnosis Cirrhosis- Primary Cirrhosis of liver without mention of alcohol documented in this encounter Care Teams Home Assessment Nurse Relationship Specialty Start Date End Date Laurie Wiggins MD [address] [place] [address] PCP - General 03/03/10 02/12/19 documented as of this encounter
--- OUTSIDE RECORDS SUMMARY | 2024-01-20 15:51 | XMS_ITS | Encounter Summary ---
[place] [address] Care Team Providers Care Slip Cover Estimator Name Role Phone Laurie Wiggins MD Primary Care Provider +1- [phone] Encounter Details Date Type Department Care Team (Late st Contact Info) Description 04/01/2010 2:30 PM EST [place] [address] Paty Pedraza APRN [facility] [place] [address] Discharge Disposition: Home Social History Tobacco Use [...] 8:15 AM EST Office Visit Dermatology at [place] [address] [place] [address] Jin Nunez MD [address], [place] [address] documented as of this encounter Visit Diagnoses Not on filedocumented in this encounter Care Teams Slip Cover Estimator Relationship Specialty Start Date End Date Laurie Wiggins MD [address] [place] [address] PCP - General 03/03/10 02/12/19 documented as of this encounter
--- OUTSIDE RECORDS SUMMARY | 2024-01-20 15:51 | XMS_ITS | Encounter Summary ---
Author Organization [facility] [place] [address] Care Team Providers Care Rn Transfer Name Role Phone Laurie Wiggins MD Primary Care Provider +1- [phone] Encounter Details Date Type Department Care Team (Late st Contact Info) Description 04/17/2012 9:57 AM EST - 04/17/2012 11:59 PM [facility] Hospital [place] [address] Cirrhosis Social History Tobacco Use Types Packs/Day [...] 8:15 AM EST Office Visit Dermatology at [place] [address] [place] [address] Jin Nunez MD [address], [place] [address] documented as of this encounter Procedures Procedure [...] 04/17/2012 11:44 am) Patient Info ID: ? [id number] ? : ??[birth year] (56 yrs) Name: ? ALMA CARBALLO ? Visit Date: 04/17/2012 10:49 am Performed By Performed By: ?Any Pike Associate: ? Lauren LESTER, Torres Junior Attending: ? Blake Case MD Referred By: ? CLEMENCIA HERNANDEZ MD Service(s) Provided [facility] - Abdominal Complete Survey - [id number] ? [id number] Indications Cirrhosis ----- Liver ----- Right Lobe [...] Final 04/17/2012 11:44 am) Patient Info ID: [id number] : [birth year] (56 yrs) Name: ALMA CARBALLO Visit Date: 04/17/2012 10:49 am Performed By Performed By: Any Pike Associate: Torres Aguilar MD Attending: Blake Case MD Referred By: CLEMENCIA HERNANDEZ MD Service(s) Provided [facility] - Abdominal Complete Survey - [phone] Indications Cirrhosis ----- Liver ----- Right Lobe [...] alcohol documented in this encounter Care Teams Rn Transfer Relationship Specialty Start Date End Date Laurie Wiggins MD [address] [place] [address] PCP - General 03/03/10 02/12/19 documented as of this encounter
--- OUTSIDE RECORDS SUMMARY | 2024-01-20 15:51 | XMS_ITS | Encounter Summary ---
[place] [address] Care Team Providers Care Air Brake Tester Name Role Phone Laurie Wiggins MD Primary Care Provider +1- [phone] Encounter Details Date Type Department Care Team (Late st Contact Info) Description 01/29/2011 9:00 AM EDT - 01/29/2011 11:59 PM EDT Hospital Encounter [place] [address] Cirrhosis Social History Tobacco Use Types Packs/Day [...] 8:15 AM EST Office Visit Dermatology at [place] [address] [place] [address] Jin Nunez MD [address], [place] [address] documented as of this encounter Procedures Procedure [...] 01/29/2011 10:17 am) Patient Info ID: ? [id number] ? : ??[birth year] (55 yrs) Name: ? ALMA Denise CARBALLO ? Visit Date: 01/29/2011 09:56 am Performed By Performed By: ?MANDEEP Raza ??Janie Associate: ? Elle LESTER, Leonardo Junior Attending: ? Nicolasa LESTER, Dahlia Junior Referred By: ? AKIKO Morris APRN Accession#: ?[id number] Service(s) Provided [facility] - Abdominal Complete Survey - [phone] ? [id number] Indications Cirrhosis, screen for HCC ----- Liver [...] Final 01/29/2011 10:17 am) Patient Info ID: [id number] : 51 (55 yrs) Name: ALMA CARBALLO Visit Date: 01/29/2011 09:56 am Performed By Performed By: MANDEEP Raza Associate: Elle LESTER, Leonardo Junior Attending: Dahlia Baldwin MD Referred By: AKIKO Morris APRN Service(s) Provided [facility] - Abdominal Complete Survey - [phone] Indications Cirrhosis, screen for HCC ----- Liver [...] documented in this encounter Care Teams Air Brake Tester Relationship Specialty Start Date End Date Laurie Wiggins MD [address] [place] [address] PCP - General 03/03/10 02/12/19 documented as of this encounter
--- OUTSIDE RECORDS SUMMARY | 2024-01-20 15:51 | XMS_ITS | Encounter Summary ---
[place] [address] Care Team Providers Care Senior Stereo Compiler Team Lead Name Role Phone Laurie Wiggins MD Primary Care Provider +1- [phone] Reason for Visit * Reason Comments Follow-up Encounter Details Date Type Department Care Team (Late st Contact Info) Description 06/28/2011 1:30 PM EDT [place] [address] Paty Pedraza APRN [facility] [place]STRO[place] [address] Cirrhosis (Primary Dx) Discharge Disposition: Home Social [...] underwent serial variceal band ligation ( at [place])and was banded in December 2007 (6 bands), January 2008 ( 4 bands) and April of 2008 (3 bands). 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
--- OUTSIDE RECORDS SUMMARY | 2024-01-20 15:51 | XMS_ITS | Encounter Summary ---
[place] [address] Care Team Providers Care Patient Financial Services Manager Name Role Phone Unavailable Primary Care Provider Unavailabl e Encounter Details Date Type Department Care Team (Late st Contact Info) Description 02/24/2010 2:30 PM EST [place] [address] Paty Pedraza APRN [facility] [place] [address] Social History Tobacco Use Types Packs/Day Years [...] 8:15 AM EST Office Visit Dermatology at [place] [address] [place] [address] Jin Nunez MD [address], [place] [address] documented as of this encounter Visit Diagnoses Not on filedocumented in this encounter
--- OUTSIDE RECORDS SUMMARY | 2024-01-20 15:51 | XMS_ITS | Encounter Summary ---
[place] [address] Care Team Providers Care Apprentice Photographer Name Role Phone Laurie Wiggins MD Primary Care Provider +1- [phone] Reason for Visit * Reason Comments Follow-up Encounter Details Date Type Department Care Team (Late st Contact Info) Description 04/17/2012 11:30 AM EST Follow-[place] [address] CLINIC, Paty Verdugo APRN [facility] [place] [address] Cirrhosis (Primary Dx) Discharge Disposition: Home Social [...] underwent serial variceal band ligation ( at [facility]and was banded in December 2007 (6 bands), January 2008 ( 4 bands) and April of 2008 (3 bands). 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 [...] 8:15 AM EST Office Visit Dermatology at [place] [address] [place] [address] Jin Nunez MD [address], [address] [place] [address] Scheduled Orders Name Type Priority Associated Diagnoses [...] Neutrophil % 67.1 34.0 - 71.0 % [facility] Neutrophil Absolute 5.49 1.50 - 6.30 x10(3)/[facility] CERNER MILLENNIUM Lymph % 21.9 19.0 - 53.0 % [facility] MILLENNIUM Lymphocytes Abs 1.8 1.0 - 3.6 x10(3)/[facility] CERNER MILLENNIUM Monocyte % 7.4 4.0 - 13.0 % [facility] MILL[facility]NIUM Monocyte Abs 0.6 0.2 - 1.0 x10(3)/[facility] CERNER MILLENNIUM Eos % 3.3 0.0 - 7.0 % CERNER MILLENNIUM Eosinophils Abs 0.3 0.0 - 0.5 x10(3)/[facility] CERNER MILLENNIUM Basophil % 0.1 0.0 - 2.0 % CERNER MILLENNIUM Baso Absolute 0.0 0.0 - 0.2 x10(3)/[facility] CERNER MILLENNIUM Immature Gran % 0.20 0.00 - 0.66 % [facility] Comment: Immature granulocytes(IG's)percentage and absolute count will include metamyelocytes, myelocytes, and promyelocytes. Blood smears from CBCs yielding IG's will be scanned manually for concordance. If this scan disagrees with the automated IG or if promyelocytes are noted, a manual differential will be performed. Immature Gran Absolute 0.02 0.00 - 0.05 x10(3)/mcL [facility] CORINEENNIUM Blood specimen (specimen) 04/17/2012 8:52 AM EST 04/17/2012 8:56 AM EST Gustabo Garza MD HEMATOLOGY ORDERABL ES [facility] * (ABNORMAL) AFP tumor marker (04/17/2012 8:52 AM EST) Pathologist [facility] Alpha Fetoprotein 6(H) <=5 ng/mL [facility] Comment: Note new Reference Range as of 12-20-2011. Reference: Immulite 2000 AFP package insert ([id number], 2009-01-02) Blood specimen (specimen) 04/17/2012 8:52 AM EST 04/17/2012 12:01 PM EST Narrative Resulting Agency Comment Spec In Lab Gustabo Garza MD CHEMISTRY ORDERABLE S Performing Organization Address [facility] de Phone Number THEO ARCOS * Prothrombin Time (04/17/2012 8:52 AM EST) Prothrombin Time 14.5 11.9 - 14.7 sec CERNER MILLENNIUM Comment: [facility] Transfusion Committee Guidelines: INR less than [...] MD HEMATOLOGY ORDERABL ES Performing Organization Address [facility] Phone Number THEO ARCOS * (ABNORMAL) Comprehensive [...] validated at [facility]. Results from pediatric patients [...] Gustabo Garza MD HEMATOLOGY ORDERABL ES [facility] documented in this encounter Visit Diagnoses Diagnosis Cirrhosis- Primary Cirrhosis of liver without mention of alcohol documented in this encounter Care Teams Apprentice Photographer Relationship Specialty Start Date End Date Laurie Wiggins MD [address] [place] [address] PCP - General 03/03/10 02/12/19 documented as of this encounter
--- OUTSIDE RECORDS SUMMARY | 2024-01-20 15:51 | XMS_ITS | Encounter Summary ---
[place] [address] Care Team Providers Care Outsole Molder Name Role Phone Laurie Wiggins MD Primary Care Provider +1- [phone] Encounter Details Date Type Department Care Team (Late st Contact Info) Description 03/18/2010 7:30 AM EST Office [place] [address] Roland Patterson MD [facility] [place] [address] Discharge Disposition: Home Social History Tobacco Use [...] 8:15 AM EST Office Visit Dermatology at [place] [address] [place] [address] Jin Nunez MD [address], [place] [address] documented as of this encounter Visit Diagnoses Not on filedocumented in this encounter Care Teams Outsole Molder Relationship Specialty Start Date End Date Laurie Wiggins MD [address] [place] [address] PCP - General 03/03/10 02/12/19 documented as of this encounter
--- OUTSIDE RECORDS SUMMARY | 2024-01-20 15:51 | XMS_ITS | Encounter Summary ---
[place] [address] Care Team Providers Care Dental Intern Name Role Phone Laurie Wiggins MD Primary Care Provider +1- [phone] Encounter Details Date Type Department Care Team (Late st Contact Info) Description 02/15/2010 [place] [address] [place] [address] Social History Tobacco Use Types Packs/Day Years [...] 8:15 AM EST Office Visit Dermatology at [place] [address] [place] [address] Jin Nunez MD [address], [place] [address] documented as of this encounter Procedures Procedure [...] GI ENDOSCOPY (06/25/2010 9:46 AM EDT) Pathologist [facility] UPPER GI ENDOSCOPY [facility] Endoscopy ___ Patient Name: Alma Carballo ? Procedure Date: 06/25/2010 09:46:41 AM ? N: [id number] ? Date of : 1955 ? Age: 55 ? ___ Procedure: ? Upper GI endoscopy Indications: ? prior history of GI bleed, cirrhosis, ? 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 Boo Browne MD, Alma Rivera ? MELY Hilton, Bernie Martinez, ? Flare Stitcher Referring MD: ?Laurie Wiggins MD, Paty Pedraza, [...] Zazueta MD CHEMISTRY ORDERABLES Performing Organization Address [facility] de Phone Number [facility]ALSID[facility]AR[facility] * BUN (02/17/2010 4:30 AM EST) Blood Urea Nitrogen 13 10 - 20 mg/dL [facility] Blood specimen (specimen) 02/17/2010 4:30 AM EST 02/17/2010 5:01 AM EST Guille Zazueta MD CHEMISTRY ORDERABLES Performing Organization Address [facility] Co de Phone Number [facility] * ELECTROLYTE PANEL (02/17/2010 4:30 AM EST) Sodium 138 135 - 145 mmol/L CERNER MILLENNIUM Potassium 3.8 3.5 - 5.0 mmol/L CERBANNER MILLENNIUM Comment: Please note: ??Patients with WBC [...] Zazueta MD CHEMISTRY ORDERABLES Performing Organization Address City/[facility]/ZIP Co de Phone Number CERNER MILLENNIUM * (ABNORMAL) HEPATIC FUNCTION PANEL (02/17/2010 4:30 AM EST) Pathologist [facility] Protein, Total 5.3(L) 6.4 - 8.3 gm/dL CERNER MILLENNIUM Albumin 2.9(L) 3.2 - 5.2 gm/dL CERNER MILLENNIUM Aspartate Aminotransferase 93(H) 0 - 39 unit/L CERNER MILLENNIUM Alanine Aminotransferase 78(H) 0 - 55 unit/L CERNER MILLENNIUM Alkaline Phosphatase 64 40 - 120 unit/L CERNER MILLENNIUM Bilirubin, Total 0.4 0.2 - 1.3 mg/dL CERNER MILLENNIUM Comment:[facility] Bilirubin, Direct 0.2 0.0 - 0.3 mg/dL CERNER MILLENNIUM Blood specimen (specimen) 02/17/2010 4:30 AM EST 02/17/2010 5:01 AM EST Guille Zazueta MD CHEMISTRY ORDERABLES CERSIDDHARTH POOLENNIUM * (ABNORMAL) REFLEX LAB-A-DIFF (02/17/2010 4:30 AM EST) Pathologist [facility] Neutrophil % 48.1 34.0 - 71.0 % [...] MD HEMATOLOGY ORDERABLE S Performing Organization Address City/[facility] Co de Phone Number THEO POOLENNIUM * (ABNORMAL) HEMOGLOBIN AND HEMATOCRIT, BLOOD (02/16/2010 11:50 PM EST) Hemoglobin 8.9(L) 13.7 - 17.5 gm/dL [facility]ERN[facility] MILLENNIUM Hematocrit 26.8(L) 40.0 - 51.0 % CERNER MILLENNIUM Blood specimen (specimen) 02/16/2010 11:50 PM EST 02/16/2010 11:55 PM EST Guille Zazueta MD HEMATOLOGY ORDERABLE S Performing Organization Address [facility] Phone Number THEO FONTANAIUM * (ABNORMAL) HEMOGLOBIN AND HEMATOCRIT, BLOOD (02/16/2010 6:45 PM EST) Hemoglobin 8.9(L) 13.7 - 17.5 gm/dL CERBANNER MILLENNIUM Hematocrit 26.5(L) 40.0 - 51.0 % CERNER MILLENNIUM Blood specimen (specimen) 02/16/2010 6:45 PM EST 02/16/2010 6:52 PM EST Guille Zazueta MD HEMATOLOGY ORDERABLE S Performing Organization Address [facility] Co de Phone Number THEO [...] REFLEX LAB-SCAN (02/16/2010 4:45 AM EST) Pathologist [facility] Plat estimate Decreased CERNER MILLENNIUM RBC Morphology Normal CERNE R MILLENNIUM Blood specimen (specimen) 02/16/2010 4:45 AM EST 02/16/2010 5:02 AM EST Guille Zazueta MD HEMATOLOGY ORDERABLE S CERNER MILLENNIUM * (ABNORMAL) REFLEX LAB-A-DIFF (02/16/2010 4:45 AM EST) Pathologist [facility] Neutrophil % 40.4 34.0 - 71.0 % [...] MD HEMATOLOGY ORDERABLE S Performing Organization Address [facility] de Phone Number THEO FONTANAIUM * BUN (02/16/2010 4:45 AM EST) Blood Urea Nitrogen 16 10 - 20 mg/dL CERNER MILLENNIUM Blood specimen (specimen) 02/16/2010 4:45 AM EST 02/16/2010 5:02 AM EST Guille Zazueta MD CHEMISTRY ORDERABLES Performing Organization Address City/[facility] Co de Phone Number THEO POOLENNIUM * (ABNORMAL) PHOSPHORUS (02/16/2010 4:45 AM EST) Phosphorus 4.7(H) 2.5 - 4.5 mg/dL CERNER MILLENNIUM Blood specimen (specimen) 02/16/2010 4:45 AM EST 02/16/2010 5:02 AM EST Guille Zazueta MD CHEMISTRY ORDERABLES Performing Organization Address City/[facility] Co de Phone Number THEO [...] 0.0 - 0.3 mg/dL CERNER MILLENNIUM Comment:result rechecked-[facility] Blood specimen (specimen) 02/16/2010 4:45 AM EST 02/16/2010 5:02 AM EST Guille Zazueta MD CHEMISTRY ORDERABLES Performing Organization Address City/[facility] Co de Phone Number [facility] MILLENNIUM * MAGNESIUM (02/16/2010 4:45 AM EST) Magnesium 0.75 0.69 - 1.07 mmol/L [facility] MILLENNIUM Blood specimen (specimen) 02/16/2010 4:45 AM EST 02/16/2010 5:02 AM EST Guille Zazueta MD CHEMISTRY ORDERABLES Performing Organization Address [facility] Co de Phone Number [facility] * CREATININE, SERUM (02/16/2010 4:45 AM EST) [...] Zazueta MD CHEMISTRY ORDERABLES Performing Organization Address [facility] de Phone Number [facility] MILLENNIUM * (ABNORMAL) CALCIUM (02/16/2010 4:45 AM EST) Calcium 7.8(L) 8.5 - 10.5 mg/dL CERN[facility] MILLENNIUM Blood specimen (specimen) 02/16/2010 4:45 AM EST 02/16/2010 5:02 AM EST Guille Zazueta MD CHEMISTRY ORDERABLES Performing Organization Address [facility] Co de Phone Number [facility] MILLENNIUM * ELECTROLYTE PANEL (02/16/2010 [...] questions. Chloride 106 98 - 107 mmol/L CERBANNER MILLENNIUM Carbon Dioxide 25 22 - 31 mmol/L CERNER MILLENNIUM Anion Gap 8 5 - 15 mmol/L CERBANNER MILLENNIUM Blood specimen (specimen) 02/16/2010 4:45 AM EST 02/16/2010 5:02 AM EST Guille Zazueta MD CHEMISTRY ORDERABLES Performing Organization Address [facility] Phone Number [facility] * APTT (02/16/2010 4:45 AM EST) Partial Thromboplastin Time 30 25 - 37 sec [facility] Comment: Recommended therapeutic PTT range for full dose unfractionated heparin is 80-114 seconds. Blood specimen (specimen) 02/16/2010 4:45 AM EST 02/16/2010 5:02 AM EST Guille Zazueta MD HEMATOLOGY ORDERABLE S Performing Organization Address [facility] Phone Number [facility] * (ABNORMAL) PROTIME-INR (02/16/2010 4:45 AM EST) Prothrombin Time 15.6(H) 11.8 - 15.0 sec [facility] Comment: [facility] Transfusion Committee Guidelines: INR less than 2.0, PTT less than OR equal to 43.5 seconds, or Fibrinogen greater than or equal to 100 mg/dl indicate adequate procoagulant activity for hemostasis in patients without underlying bleeding disorders. International Normalization Ratio 1.2(H) 0.9 - 1.1 [facility] MILLENNIUM Blood specimen (specimen) 02/16/2010 4:45 AM EST 02/16/2010 5:02 AM EST Guille Zazueta MD HEMATOLOGY ORDERABLE S Performing Organization Address [facility] Phone Number [facility] * POCT GLUCOMETER ORDER (LAB USE ONLY) (02/15/2010 11:10 PM EST) Glucose, POC 97 70 - 110 mg/dL [facility] Comment: Supplemental ranges: <110 mg/dL before meals <200 mg/dL all other times of the day Blood specimen (specimen) 02/15/2010 11:10 PM EST 02/15/2010 11:10 PM EST Ana M Strong MD POINT OF CARE TEST O RDERABLES Performing Organization Address [facility] Co de Phone Number [facility] * REFLEX LAB-AB COMMENT (02/15/2010 6:45 [...] should be identifiable in inventory. ZMS 02/23/[address] [facility] Comment: Howard Llamas, Pathologist Verified:02/23/10 Blood specimen (specimen) 02/15/2010 6:45 PM EST 02/15/2010 7:01 PM EST Guille Zazueta MD BLOOD BANK LAB ORDER CLAUDIO Performing Organization Address [facility] de Phone Number [facility] * BLOOD TYPING, ANTIGEN SCREEN (02/15/2010 6:45 PM EST) Pathologist [facility] Antigen Type c- c- c+ [facility] Blood specimen (specimen) 02/15/2010 6:45 PM EST 02/15/2010 8:41 PM EST Guille Zazueta MD BLOOD BANK LAB ORDER CLAUDIO Performing Organization Address [facility] Co de Phone Number MAUROBANNER JOSSELYN * BLOOD TYPING, ANTIGEN SCREEN (02/15/2010 6:45 PM EST) Antigen Type E+ E- E- THEO ARCOS Blood specimen (specimen) 02/15/2010 6:45 PM EST 02/15/2010 9:20 PM EST Guille Zazueta MD BLOOD BANK LAB ORDER CLAUDIO Performing Organization Address City/[facility] Co de Phone Number [facility]OBAN[facility] JOSSELYN * DIRECT ANTIGLOBULIN TEST (02/15/2010 6:45 PM EST) HERIBERTO Poly Negative [facility]OBANNER [facility]YAV[facility]ENTERJHONATHAN Blood specimen (specimen) 02/15/2010 6:45 PM EST 02/15/2010 9:09 PM EST Guille Zazueta MD BLOOD BANK LAB ORDER CLAUDIO Performing Organization Address [facility] Co de Phone Number [facility] JOSSELYN * REFLEX LAB-ANTIBODY IDENTIFICATION (02/15/2010 6:45 PM EST) Ab Identified Anti-E Anti-c THEO ARCOS Blood specimen (specimen) 02/15/2010 6:45 PM EST 02/15/2010 7:01 PM EST Guille Zazueta MD BLOOD BANK LAB ORDER CLAUDIO Performing Organization Address City/[facility]/ZIP Co de Phone Number MAUROBANNER JOSSELYN * REFLEX LAB-ANTIBODY SCREEN (02/15/2010 6:45 PM EST) Ab Screen Interp Positive [facility]ENTERJHONATHAN Expires at [id number] on: [id number] [facility]ENTERJ[facility]ATHAN Blood specimen (specimen) 02/15/2010 6:45 PM EST 02/15/2010 7:01 PM EST Guille Zazueta MD BLOOD BANK LAB ORDER CLAUDIO [facility] MILLENNIUM * REFLEX LAB-ABO/RH (02/15/2010 6:45 PM EST) ABORH Type A Pos CERNER MILLENNIUM Blood specimen (specimen) 02/15/2010 6:45 PM EST 02/15/2010 7:01 PM EST Guille Zazueta MD BLOOD BANK LAB ORDER CLAUDIO Performing Organization Address [facility] de Phone Number CERSIDDHARTH POOLENNIUM * PHOSPHORUS (02/15/2010 6:45 PM EST) Phosphorus 4.2 2.5 - 4.5 mg/dL CERNER MILLENNIUM Blood specimen (specimen) 02/15/2010 6:45 PM EST 02/15/2010 7:00 PM EST Guille Zazueta MD CHEMISTRY ORDERABLES Performing Organization Address [facility] Phone Number CERSIDDHARTH POOLENNIUM * MAGNESIUM (02/15/2010 6:45 PM EST) Magnesium 0.76 0.69 - 1.07 mmol/L CERN[facility] MILLENNIUM Blood specimen (specimen) 02/15/2010 6:45 PM EST 02/15/2010 7:00 PM EST Guille Zazueta MD CHEMISTRY ORDERABLES Performing Organization Address [facility] Phone Number CERSIDDHARTH POOLENNIUM * (ABNORMAL) [...] Zazueta MD CHEMISTRY ORDERABLES Performing Organization Address [facility] de Phone Number THEO POOLENNIUM [...] Zazueta MD CHEMISTRY ORDERABLES Performing Organization Address [facility] de Phone Number THEO FONTANAIUM [...] Zazueta MD CHEMISTRY ORDERABLES Performing Organization Address [facility] de Phone Number THEO ARCOS * (ABNORMAL) CALCIUM (02/15/2010 6:45 PM EST) Calcium 8.3(L) 8.5 - 10.5 mg/dL THE[facility] FONTANAIUM Blood specimen (specimen) 02/15/2010 6:45 PM EST 02/15/2010 7:00 PM EST Guille Zazueta MD CHEMISTRY ORDERABLES Performing Organization Address [facility] de Phone Number THEO FONTANAIUM * BUN (02/15/2010 6:45 PM EST) Blood Urea Nitrogen 15 10 - 20 mg/dL CERSIDDHARTH Violet GreyENNIUM Blood specimen (specimen) 02/15/2010 6:45 PM EST 02/15/2010 7:00 PM EST Guille Zazueta MD CHEMISTRY ORDERABLES Performing Organization Address [facility] Co de Phone Number THEO FONTANAIUM * APTT (02/15/2010 6:45 PM EST) Partial Thromboplastin Time 30 25 - 37 sec [facility] COR[facility] Comment: Recommended therapeutic PTT range for full dose unfractionated heparin is 80-114 seconds. Blood specimen (specimen) 02/15/2010 6:45 PM EST 02/15/2010 7:01 PM EST Guille Zazueta MD HEMATOLOGY ORDERABLE S Performing Organization Address [facility] de Phone Number THEO ARCOS * PROTIME-INR (02/15/2010 6:45 PM EST) Prothrombin Time 14.6 11.8 - 15.[address] [facility] Comment: [facility] Transfusion Committee Guidelines: INR less than 2.0, PTT less than OR equal to 43.5 seconds, or Fibrinogen greater than or equal to 100 mg/dl indicate adequate procoagulant activity for hemostasis in patients without underlying bleeding disorders. International Normalization Ratio 1.1 0.9 - 1.[address] [facility] Blood specimen (specimen) 02/15/2010 6:45 PM EST 02/15/2010 7:01 PM EST Guille Zazueta MD HEMATOLOGY ORDERABLE S Performing Organization Address [facility] de Phone Number THEO ARCOS * (ABNORMAL) REFLEX LAB-A-DIFF (02/15/2010 6:45 PM EST) Neutrophil % 54.9 34.0 - 71.0 % [facility] MILLENNIUM Neutrophil Absolute 2.25 1.50 [...] 7:33 AM EST) Surgical Pathology Report ? [facility] ? Provider: ?? TIFF REYES ? Pt. Name: ?? ALMA CARBALLO ? Acc #: ?[id number] ?Pt. ? Col Date: ?? 02/15/2010 ? [...] on filedocumented in this encounter Care Teams Dental Intern Relationship Specialty Start Date End Date Laurie Wiggins MD [address] [place] [address] PCP - General 03/03/10 02/12/19 documented as of this encounter
--- OUTSIDE RECORDS SUMMARY | 2024-01-20 15:51 | XMS_ITS | Encounter Summary ---
Author Organization [facility] Address [address] [place] [address] Care Team Providers Care Mailroom Personnel Name Role Phone CarmineGeorge Ruby GREEN Primary Care Provider [phone] Reason for Visit * Reason Comments Tumor Board * Consult (Routine/Next Available) - Specialty Report Received Specialty Diagnoses / Procedures Referred By Tad alcaraz Referred To Contact Hematology and Oncology Diagnoses Alcoholic cirrhosis of liver without ascites (HCC-CMS) Filipe Sarmiento MD [address] [place] [address] 1 [place] [address] Referral ID Status Reason Start Date Expiration Date Visits Requested Visits Authorized [id number] Specialty Report Received Specialty Services Required 11/25/2023 1 1 Encounter Details Date Type Department Care Team (Latest Contact Info) Description 12/21/2023 16:30 EDT Tumor Board [facility] Hematology & [place] [address] Hepatocellular carcinoma (HCC-CMS) (Primary Dx) Social History [...] Liver Date of Presentation: 12/21/2023 Patient Name: lAonzo Urbina Diagnosis: 1. Hepatocellular carcinoma (HCC-CMS) AJCC [...] 10:00 EDT Office Visit [facility] General Surgery - [address] [id number] Bon Gutierrez MD [address] [place] [address], [address] [place] [phone] 09/10/2024 10:00 EDT Appointment Shaina Mejia [address] [place] [address] [phone] Scheduled Referrals Name Type Priority Associated Diagnoses Orde r Schedule AMB CONSULT/FOLLOW UP TUMOR BOARD Outpatient Referral Routine Alcoholic cirrhosis of liver without ascites (HCC-CMS) Ordered: 11/25/2023 documented as of this encounter Visit Diagnoses Diagnosis Hepatocellular carcinoma (HCC-CMS)- Primary Malignant neoplasm of liver, primary documented in this encounter Care Teams Mailroom Personnel Relationship Specialty Start Date End Date George Lou RPA [address] [place] [address] PCP - General Family Medicine - Primary Care 09/21/22 documented as of this encounter
--- OUTSIDE RECORDS SUMMARY | 2024-01-20 15:51 | XMS_ITS | Encounter Summary ---
Author Organization [facility] [place] [address] Care Team Providers Care Pig Farm Manager Name Role Phone George Lou Primary Care Provider [phone] Encounter Details Date Type Department Care Team (Late st Contact Info) Description 02/15/2010 Orders [place] [address] Ernesto Cardona MD [address] [place] [address] Social History Tobacco Use Types Packs/Day Years [...] 8:15 AM EST Office Visit Dermatology at [place] [address] [place] [address] Jin Nunez MD [address], [place] [address] documented as of this encounter Procedures Procedure Name Priority Date/Time Associated Diagnosis Comments SURGICAL PATHOLOGY REPORT Routine 02/15/2010 7:33 AM EST documented in this encounter Results * Surgical Pathology Report (02/15/2010 7:33 AM EST) Surgical Pathology Report [id number] ? Location: 1EST; 0134; A The signing [...] on filedocumented in this encounter Care Teams Pig Farm Manager Relationship Specialty Start Date End Date George Lou PA [address] [place] [address] PCP - General Internal Medicine 11/12/22 documented as of this encounter
--- OUTSIDE RECORDS SUMMARY | 2024-01-20 15:51 | XMS_ITS | Encounter Summary ---
Author Organization [facility] Address [address] [place] [address] Care Team Providers Care Tar Heat Exchanger Cleaner Name Role Phone George Lou NORMA Primary Care Provider [phone] Reason for Referral * Radiology Services (Routine/Next Available) - Authorized Specialty Diagnoses / Procedures Referred By Tad alcaraz Referred To Contact Diagnoses Liver lesion Procedures CT CHEST WO CONTRAST Filipe Sarmiento MD [address] [place] [address] 1 [place] [address] [facility] Referral ID Status Reason Start Date Expiration Date V isits Requested Visits Authorized [id number] Authorized 01/03/2024 04/02/2024 1 1 Encounter Details Date Type Department Care Team (Late st Contact Info) Description 12/23/2023 Orders Only [facility] Interventional Radiology - [address] [id number] Echo Doe RN Liver lesion (Primary Dx) [...] [facility] - [address] [id number] Bon Gutierrez MD [address] [facility], [facility], [address] [place] [phone] 09/10/2024 10:00 EDT Appointment Shaina Mejia [address] [place], [place] [address] Scheduled Orders Name Type Priority Associated Diagnoses Orde r Schedule CT CHEST WO CONTRAST Imaging Routine Liver lesion 1 Occurrences starting 12/23/2023 until 06/21/2025 documented as of this encounter Visit Diagnoses Diagnosis Liver lesion- Primary Other specified disorders of liver documented in this encounter Care Teams Tar Heat Exchanger Cleaner Relationship Specialty Start Date End Date George Lou RPA [address] [address] PCP - General Family Medicine - Primary Care 09/21/22 documented as of this encounter
--- OUTSIDE RECORDS SUMMARY | 2024-01-20 15:51 | XMS_ITS | Clinical Summary ---
Author Organization [facility] Address [address] [place] [address] Care Team Providers Care Health Care / Medical Job Titles Name Role Phone George Lou NORMA Primary Care Provider [phone] Allergies Active Allergy Reactions Criticality Noted Date [...] times daily. Obtaining through Patient Assistance Program ([employer]), approved on 05/31/19 x1 year. Phone number for PAP: [phone] Active zinc sulfate (ZINCATE) 220 (50) mg [...] Date Diagnosed Date Depression 08/09/2018 Substance abuse (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[facility]) 01/08/2014 Overview: This diagnosis was automatically [...] Department Care Team Description 12/23/2023 Orders Only [facility] Interventional Radiology - [address] [address] Echo Doe, RN Liver lesion (Primary Dx) 12/23/2023 Orders Only [facility] Interventional Radiology [address] [address] Echo Doe, RN Alcoholic cirrhosis, unspecified whether ascites present (HCC-CMS) (Primary Dx) 12/22/2023 7:33 EDT - 12/22/2023 23:59 EDT Hospital Encounter [facility] Radiology - [address] [address] Discharge Disposition: Home or Self Care 12/21/2023 16:30 EDT Tumor Board [facility] Hematology & Oncology - [address] [address] Hepatocellular carcinoma (HCC-CMS) (Primary Dx) 12/21/2023 Orders Only [facility] Hematology & Oncology - [address] [address] Shantal Albarran RN 11/25/2023 15:17 EDT - 11/25/2023 23:59 EDT Hospital Encounter [facility] [address] [place], [place] [address] Discharge Disposition: Home or Self Care 11/25/2023 Orders Only [facility] Interventional Radiology [address] [address] Echo Doe, RN Alcoholic cirrhosis of liver without ascites (HCC-CMS) (Primary Dx) 11/17/2023 15:07 EDT - 11/17/2023 23:59 [address] [facility] [address] [place], [place] [id number] Cirrhosis (HCC-CMS) Discharge Disposition: Home or Self Care 11/17/2023 11:03 EDT - 11/17/2023 15:06 EDT Hospital Encounter [facility] Radiology [address] [id number] Cirrhosis (HCC-CMS) Discharge Disposition: Home or Self Care 11/07/2023 Telephone [facility] Interventional Radiology [address] [address] Guicho Rosales MD Appointment Related from Last 3 Months Immunizations Name Administration Dates Next Due Influenza (whole) 11/09/2014 Influenza Vaccine Quad (AFLURIA) PF 0.5 ml IM (3 yrs+) 01/09/2014 Pneumococcal Polysaccharide (PPSV23) Vaccine (PNEUMOVAX-23) =>2YO SQ/IM 01/11/2014 Surgical History Surgery Date Site/Laterality Comments ESOPHAGEAL VARICE LIGATION 2008 or 2009 HERNIA REPAIR hiatal hernia BACK SURGERY 1973, 1980 SHOULDER SURGERY 20 years ago TIPS [...] Visit [facility] General Surgery - [address] [id number] Bon Gutierrez MD 111 [facility], Level 5 [place] [address] 09/10/2024 10:00 EDT Appointment Shaina Mejia [address] [place] [address] Health Maintenance Due Date Last Done Comments RSV Immunization ( o r 60+ Years) (1 - 1-dose 60+ series) 2013 Fall Risk Screening 2018 Advance Directive Review 09/16/2023 COVID-19 Vaccine (2023-2 5 season) 2023 Hepatitis C Screen Completed 06/28/2018, 1 04/19/2014, 11/21/2014, Additional history exists Medical Devices Implanted Type Area Customer Experience Associate Device Identifier Shelf Expiration Date Model / [...] performed for the imaging exams listed above. [id number] Resulting Agency Comment [id number] Procedure Note Cole Leblanc MD - 12/08/2023 TUMOR BOARD IMAGING REVIEW Tumor board: Liver tumor board Date of tumor board: 12/07/2023 Indication: Liver lesions. Imaging studies reviewed: Abdominal MRI with and without contrast 11/17/2023 Comments: A focused interpretation for the purpose of tumor board/MDC discussion wasperformed for the imaging exams listed above. [id number] Filipe Sarmiento MD IMG CT ORDERABLES * MR ABDOMEN W WO CONTRAST (11/17/2023 18:13 EDT) Anatomical Region Laterality Modality Body, Abdomen Magnetic Resonan ce 11/18/2023 10:3 7 EDT Addenda Addendum by Blake Fuentes MD on 11/25/2023 9:35 EDT Addendum: MRI of the abdomen with and without IV contrast was performed. [id number] Impressions 11/18/2023 10:37 EDT Lesion #1: Segment [...] ongoing routine MRI surveillance for hepatocellular carcinoma. [id number] Narrative 11/18/2023 10:37 EDT MR ABDOMEN W [...] Localizer: No additional findings. Resulting Agency Comment [id number] Procedure Note Blake Fuentes MD - 11/18/2023 [...] is ongoing routine MRIsurveillance for hepatocellular carcinoma. [id number] Norbert Bennett PA-C [facility] ORDERABLES * US ABDOMEN LIMITED WITH [...] malfunction. AJR Am J Roentgenol. 1996. May;168(2):467-72. [id number] Narrative 11/19/2023 13:29 EDT US ABDOMEN LIMITED WITH COMPLETE DUPLEX ??11/17/2023 1:41 PM SIGNS AND SYMPTOMS/COMMENTS: Cirrhosis COMPARISONS: Ultrasound abdomen from 10/10/2023 GRAYSCALE: TECHNIQUE: Grayscale ultrasound images of the liver were obtained. INDICATION FOR GRAYSCALE: Evaluate for structural abnormality Resulting Agency Comment [id number] Procedure Note Madelaine Francois MD - 11/19/2023 [...] shunt malfunction. AJR Am J Roentgenol. 1996.May;168(2):467-72. [id number] Norbert Bennett PA-C [facility] [place] ORDERABLES * HCV RNA DETECT QUANT (06/28/2018 6:56 EDT) [facility] HCV RNA Detect Quant Undetected Undetected IU/mL 06/29/2018 16:21 EDT [facility] Comment: Reference Range: ??Undetected The quantification range of this assay is 15 IU/mL to 100,000,000 IU/mL. Testing was performed by the Mili Ampliprep/Mili TaqMan HCV v2.0 ([employer] Blood specimen (specimen) BLOOD SPECIMEN / Unknown 06/28/2018 6:56 EDT 06/28/2018 7:13 EDT Zac Whitaker MD CHEMISTRY & BLOOD G ORDERABLES [facility] [address] [place] [address] from Last 3 Months or Most Recently Relevant to Health Maintenance [address] [place] [address] Alonzo Urbina Personal/Famil y Self [address] [place] [address] 1 [place] [address] Alonzo Urbina Personal/Famil y Self 1955 [address] [facility] 1 [place] [address] UrbinaAlonzo morris Personal/Famil y Self [address] [place] [address] 1 [place] [address] Alonzo Urbina Personal/Famil y Self 1955 [address] [facility] 1 [place] [address] UrbinaAlonzo morris Personal/Famil y Self 1955 [address] [facility] 1 [place] [address] Advance Directives For more information, please contact: [phone] Documents on File Type Date Recorded Patient Hearing Therapy Director Expl anation COLST/MOLST 09/15/2018 12:25 2013-03-26 DN [...] in the Discussion? 1. Patient Care Teams Health Care / Medical Job Titles Relationship Specialty Start Date End Date George Lou RPA [address] [place] [address] PCP - General Family Medicine - Primary Care 09/21/22
--- OUTSIDE RECORDS SUMMARY | 2024-01-20 15:52 | XMS_ITS | Encounter Summary ---
Author Organization [facility] Address [address] [place] [address] Care Team Providers Care Airline Transport Pilot Name Role Phone George Lou NORMA Primary Care Provider [phone] Encounter Details Date Type Department Care Team (Late st Contact Info) Description 10/17/2023 Orders Only [facility] Radiology - Main [place] [address] [place], [place] [id number] Joe Morrow MD [address] [place] [phone] Social History Tobacco Use Types Packs/Day Years [...] [facility] General Surgery - [address] [address] Bon Gutierrez MD 111 [facility], Level 5 [place] [phone] 09/10/2024 10:00 EDT Appointment Shaina Berger[address] [address] [place], [place] [address] documented as of this encounter Visit Diagnoses Not on filedocumented in this encounter Care Teams Airline Transport Pilot Relationship Specialty Start Date End Date George Lou RPA [address] [id number] PCP - General Family Medicine - Primary Care 09/21/22 documented as of this encounter
--- OUTSIDE RECORDS SUMMARY | 2024-01-20 15:52 | XMS_ITS | Encounter Summary ---
Author Organization [facility] Address [address] [place] [address] Care Team Providers Care Service Department Manager Name Role Phone CarmineGeorge NORMA Primary Care Provider [phone] Encounter Details Date Type Department Care Team (Late st Contact Info) Description 08/24/2023 Lab Requisition [facility] Pathology & Laboratory Medicine - [address] [address] Outr Resulting Lab, Provider Social History Tobacco [...] Info) Description 01/23/2024 10:00 EDT Office Visit [facility] General Surgery - [facility] [address] [place], [place] [phone] Bon Gutierrez MD [address] [facility], Level 5 [place] [address] 09/10/2024 10:00 EDT Appointment Shaina Mejia [address] [place] [address] documented as of this encounter Procedures Procedure Name Priority Date/Time Associated Diagnosis Comments H. PYLORI ANTIGEN Routine 08/23/2023 16: 41 EDT documented in this encounter Results * H. PYLORI ANTIGEN (08/23/2023 16:41 EDT) H. Pylori Negative Negative 08/26/2023 14:34 EDT [facility] Comment:Indicates the absenc e of H. pylori stool antigen, (or the level of antigen is below that which can be detected by the assay) Feces SPECIMEN FROM RECTUM / Unknown 08/23/2023 16:41 EDT 08/24/2023 17:15 EDT Narrative [facility] - 08/26/2023 14:34 EDT New Liaison XL testing method used as of 01/31/2023 Provider Outr Resulting Lab MICROBIOLOGY - GENERAL ORDERABLES [facility] [address] [place], [place] [id number] documented in this encounter Visit Diagnoses Not on filedocumented in this encounter Care Teams Service Department Manager Relationship Specialty Start Date End Date George Lou RPA [address] [place] [address] PCP - General Family Medicine - Primary Care 09/21/22 documented as of this encounter
--- OUTSIDE RECORDS SUMMARY | 2024-01-20 15:52 | XMS_ITS | Encounter Summary ---
Author Organization [facility] Address [address] [place] [address] Care Team Providers Care Visitor Services Coordinator Name Role Phone Katia Blanco ASSEMBLER FISHING FLOATS Primary Care Provider [phone] Reason for Visit * Reason Comments Follow-up Encounter Details Date Type Department Care Team (Late st Contact Info) Description 01/15/2020 14:30 EDT Telemedicine [facility] Interventional Radiology - [address] [address] Guicho Rosales MD [address] [place] [address], Level 1 [place] [address] Alcoholic cirrhosis, unspecified whether ascites [...] - 01/15/2020 1430 EDT No answer at [phone]. I left a voice mail that everything looks good on the ultrasound examination and that we would schedule another IR clinic visit and ultrasound in 1 year. I told him to callour office if he has any questions. documented in this encounter Plan of Treatment Upcoming Encounters Date Type Department Care Team (Late st Contact Info) Description 01/23/2024 10:00 EDT Office Visit [facility] General Surgery - [address] [address] Bon Gutierrez MD [address] [place] [address], [address] [place] [address] 09/10/2024 10:00 EDT Appointment Shaina Bergeron Ultrasound [address] [place] [address] documented as of this encounter Visit Diagnoses Diagnosis Alcoholic cirrhosis, unspecified whether ascites present (HCC-CMS)- Primary documented in this encounter Care Teams Visitor Services Coordinator Relationship Specialty Start Date End Date Katia Blanco FNP Cheryl [place] [address] PCP - General 03/26/19 09/20/22 documented as of this encounter
--- OUTSIDE RECORDS SUMMARY | 2024-01-20 15:52 | XMS_ITS | Encounter Summary ---
Author Organization [facility] Address [address] [place] [address] Care Team Providers Care Spike Machine Feeder Name Role Phone CarmineGeorge NORMA Primary Care Provider [phone] Reason for Visit * Reason Onset Date Comments Appointment Related 09/26/2023 Encounter Details Date Type Department Care Team (Late st Contact Info) Description 09/26/2023 Telephone [facility] Interventional Radiology - [address] [phone] Guicho Rosales MD [address] [place] [address] 1 [place] [address] Appointment Related Social History Tobacco [...] requesting return call to IR clinic at [phone] option 1 to confirm the following details October Appointment type: US liver Time: 11:15 am check in; 11:30am scan time Location: [address] [address] Followed by: October Appointment type: Follow up office visit Scheduled with: Marcel Bennett Time: 2:00pm Location: Interventional Radiology Clinic [facility], 3rd Floor documented in this encounter Plan of Treatment Upcoming Encounters Date Type Department Care Team (Late st Contact Info) Description 01/23/2024 10:00 EDT Office Visit [facility] General Surgery - [address] [address] Bon Gutierrez MD [address] [place] [address], [address] [place] [address] 09/10/2024 10:00 EDT Appointment Shaina [address] [address] documented as of this encounter Visit Diagnoses Not on filedocumented in this encounter Care Teams Spike Machine Feeder Relationship Specialty Start Date End Date George Lou RPA [address] [place] [address] PCP - General Family Medicine - Primary Care 09/21/22 documented as of this encounter
--- OUTSIDE RECORDS SUMMARY | 2024-01-20 15:52 | XMS_ITS | Encounter Summary ---
Author Organization [facility] Address [address] [place] [address] Care Team Providers Care Vice President Sales Name Role Phone Katia Blanco JUNIOR ADMINISTRATIVE ASSISTANT Primary Care Provider [phone] George Lou RPA Primary Care Provider [phone] Encounter Details Date Type Department Care Team (Late st Contact Info) Description 01/16/2020 Lab Requisition [facility] Pathology & Laboratory Medicine - [facility] [address] [place] [address] Sari Yusuf, DO [address] [address] [place] [place] [address] Duodenal ulcer, unspecified as acute [...] 01/23/2024 10:00 EDT Office Visit [facility] General Surgery - [address] 4365[address] Bon Gutierrez MD [address] [place] [address], [address] [place] [phone] 09/10/2024 10:00 EDT Appointment Shaina Mejia [address] [place] [address] documented as of this encounter Procedures Procedure [...] Squamous mucosa with reflux esophagitis. 01/17/2020 17:33 [facility] Attestation By the signature below, the attending physician certifies that they have 1) personally conducted a gross and/or microscopic examination of the described specimen(s), and/or personally interpreted the results of laboratory testing of the described specimen(s), and 2) personally rendered or confirmed the above diagnosis. 01/17/2020 17:33 [facility] at 1733 Clinical History Duodenal ulcers 01/17/2020 17:33 [facility] Gross Description A. Received in [...] E1. QUYNH DARBY(ASCP) 01/16/2020 18:02 01/17/2020 17:33 [facility] Performing Lab [facility] 17:33 [facility] Scanned Images 01/17/2020 17:33 [facility] Tissue ENTIRE ESOPHAGUS / Unknown [...] 15:56 EDT Sari Yusuf DO PATHOLOGY ORDERABLES [facility] [address] [place] [address] documented in this encounter Visit Diagnoses Diagnosis Duodenal ulcer, unspecified as acute or chronic, without hemorrhage or perforation documented in this encounter Care Teams Vice President Sales Relationship Specialty Start Date End Date Katia Blanco FNP [address] [place], [place] [address] PCP - General 03/26/19 09/20/22 George Lou RPA [address] [address] PCP - General Family Medicine - Primary Care 09/21/22 documented as of this encounter
--- OUTSIDE RECORDS SUMMARY | 2024-01-20 15:52 | XMS_ITS | Encounter Summary ---
Author Organization [facility] Address [address] [place] [address] Care Team Providers Care Brake Holder Name Role Phone Katia Blanco BEHAVIORAL SCIENCES INSTRUCTOR Primary Care Provider [phone] Encounter Details Date Type Department Care Team (Late st Contact Info) Description 12/10/2019 Orders Only [facility] Interventional Radiology - [address] [address] Guicho Rosales MD [address] [place] [address], Level 1 [place] [address] Cirrhosis ([facility]) (Primary Dx) Social History Tobacco Use Types [...] [facility] General Surgery - [address] [address]96[address] Bon Gutierrez MD 111 [facility], Level 5 [place] [address] 09/10/2024 10:00 EDT Appointment Shaina Bergeron [address] [place] [address] documented as of this encounter Visit Diagnoses Diagnosis Cirrhosis (HCC-CMS)- Primary Cirrhosis of liver without mention of alcohol documented in this encounter Care Teams Brake Holder Relationship Specialty Start Date End Date Katia Blanco [place] [address] PCP - General 03/26/19 09/20/22 documented as of this encounter
--- OUTSIDE RECORDS SUMMARY | 2024-01-20 15:52 | XMS_ITS | Encounter Summary ---
Author Organization [facility] Address [address] [place] [address] Care Team Providers Care Self Defense Instructor Name Role Phone Katia Blanco ARCH SUPPORT TECHNICIAN Primary Care Provider [phone] George Lou RPA Primary Care Provider [phone] Encounter Details Date Type Department Care Team (Late st Contact Info) Description 09/14/2019 Lab Requisition [facility] Pathology & Laboratory Medicine - [facility] [address] [place], [place] [phone] Outr Resulting Lab, Provider Social History Tobacco [...] [facility] - [facility] [address] [place], [place] [address] Bon Gutierrez MD 111 [facility], Level [address] [place] [phone] 09/10/2024 10:00 EDT Appointment Shaina Bergeron Ultrasound [address] [place], [place] [address] documented as of this encounter Procedures Procedure Name Priority Date/Time Associated Diagnosis Comments AFP TUMOR MARKER Routine 09/14/2019 11:3 5 EDT documented in this encounter Results * AFP TUMOR MARKER (09/14/2019 11:35 EDT) AFP Tumor Marker 4.0 <8.1 ng/mL 09/17/2019 12:05 EDT [facility] Comment: AFP Tumor Marker [...] Resulting Lab CHEMISTRY & BLOOD GAS ORDERABLES [facility] [address] [place] [address] documented in this encounter Visit Diagnoses Not on filedocumented in this encounter Care Teams Self Defense Instructor Relationship Specialty Start Date End Date Katia Blanco FNP [address] [place] [address] PCP - General 03/26/19 09/20/22 George Lou RPA 185 [facility] [address] [place] [address] PCP - General Family Medicine - Primary Care 09/21/22 documented as of this encounter
--- OUTSIDE RECORDS SUMMARY | 2024-01-20 15:52 | XMS_ITS | Encounter Summary ---
Author Organization [facility] Address [address] [place] [address] Care Team Providers Care Cover Seamer Name Role Phone Katia Blanco WINE AND SPIRITS CLERK Primary Care Provider [phone] George Lou RPA Primary Care Provider [phone] Encounter Details Date Type Department Care Team (Late st Contact Info) Description 01/11/2020 Lab Requisition [facility] Pathology & Laboratory Medicine - [facility] [address] [place], [place] [phone] Outr Resulting Lab, Provider Social History Tobacco [...] 01/23/2024 10:00 EDT Office Visit [facility] General Surgery - [address] [address] Bon Gutierrez MD 111 [facility], Level [address] [place] [phone] 09/10/2024 10:00 EDT Appointment Shaina Bergeron [address] [place], [place] [phone] documented as of this encounter Procedures Procedure Name Priority Date/Time Associated Diagnosis Comments DO NOT ORDER STANDALONE - BROAD COVID TEST Today 01/11/2020 9:08 EDT COVID-19 TESTING Routine 01/11/2020 9:08 EDT documented in this encounter Results * DO NOT ORDER STANDALONE - BROAD COVID TEST (01/11/2020 9:08 EDT) COVID-19 rt-PCR Result NEGATIVE Negative 01/12/2020 18:18 EDT [facility] Comment: 2019-novel Coronavirus (2019-nCoV) [...] in accordance with CLIA regulations, [employer] (CAP) guidelines (Jun 28, 2019), and FDA guidance (Jun 09, 2019). This test is only for use under the Food and Drug Administration's Emergency Use Authorization. Swab ENTIRE NASOPHARYNX / Unknown 01/11/2020 9:08 EDT 01/11/2020 15:42 EDT Provider Outr Resulting Lab MICROBIOLOGY - GENERAL ORDERABLES [facility] [place], [place] * COVID-19 TESTING (01/11/2020 9:08 EDT) COVID-19 rt-PCR Result NEGATIVE Negative 01/12/2020 21:09 EDT [facility] Comment: 2019-novel Coronavirus (2019-nCoV) not detected [...] in accordance with CLIA regulations, [employer] (CAP) guidelines (Jun 28, 2019), and FDA guidance (Jun 09, 2019). This test is only for use under the Food and Drug Administration's Emergency Use Authorization. Performing Lab [facility] [place] 01/12/2020 21:09 EDT [facility] Swab 01/11/2020 9:08 EDT 01/11/2020 15:42 EDT Provider Outr Resulting Lab MICROBIOLOGY - GENERAL ORDERABLES [facility] [address] [place] [address] [facility] [place] [place] documented in this encounter Visit Diagnoses Not on filedocumented in this encounter Care Teams Cover Seamer Relationship Specialty Start Date End Date Katia Blanco FNP [address] [place], [place] [address] PCP - General 03/26/19 09/20/22 George Lou RPA [address] [phone] PCP - General Family Medicine - Primary Care 09/21/22 documented as of this encounter
--- OUTSIDE RECORDS SUMMARY | 2024-01-20 15:52 | XMS_ITS | Encounter Summary ---
Author Organization [facility] Address [address] [place] [address] Care Team Providers Care Palliative Care Physician Name Role Phone George Lou NORMA Primary Care Provider [phone] Reason for Referral * Radiology Services (Routine/Next Available) - Receiving Office to Obtain Authorization Specialty Diagnoses / Procedures Referred By Tad alcaraz Referred To Contact Procedures TUMOR BOARD RADIOLOGY CONSULT LIVER TUMOR BOARD RADIOLOGY CONSULT NON BREAST Filipe Sarmiento MD [address] [place] [phone] Referral ID Status Reason Start Date Expiration Date Visits Requested Visits Authorized [id number] Receiving Office to Obtain Authorization 11/25/2023 1 1 * Consult (Routine/Next Available) - Specialty Report Received Specialty Diagnoses / Procedures Referred By Tad alcaraz Referred To Contact Hematology and Oncology Diagnoses Alcoholic cirrhosis of liver without ascites (HCC-CMS) Filipe Sarmiento MD [address] [place] [phone] Referral ID Status Reason Start Date Expiration Date Visits Requested Visits Authorized [id number] Specialty Report Received Specialty Services Required 11/25/2023 1 1 Question Answer Location [facility] Tumor Board Liver Working Stage LIRADS 5 [...] st Contact Info) Description 11/25/2023 Orders Only [facility] Interventional Radiology - [address] [address] Echo Doe RN Alcoholic cirrhosis of liver [...] Visit [facility] General Surgery - [address] [address] Bon Gutierrez MD 111 [facility], Level 5 [place] [phone] 09/10/2024 10:00 EDT Appointment Shaina Bergeron Ultrasound 7[address] [place] [address] Scheduled Referrals Name Type Priority Associated Diagnoses [...] performed for the imaging exams listed above. [id number] Resulting Agency Comment [id number] Procedure Note Cole Leblanc MD - 12/08/2023 TUMOR BOARD IMAGING REVIEW Tumor board: Liver tumor board Date of tumor board: 12/07/2023 Indication: Liver lesions. Imaging studies reviewed: Abdominal MRI with and without contrast 11/17/2023 Comments: A focused interpretation for the purpose of tumor board/MDC discussion wasperformed for the imaging exams listed above. [id number] Filipe Sarmiento MD IMG CT ORDERABLES documented in this encounter Visit Diagnoses Diagnosis Alcoholic cirrhosis of liver without ascites (HCC-CMS)- Primary Alcoholic cirrhosis of liver documented in this encounter Care Teams Palliative Care Physician Relationship Specialty Start Date End Date George Lou RPA [address] [place] [address] PCP - General Family Medicine - Primary Care 09/21/22 documented as of this encounter
--- OUTSIDE RECORDS SUMMARY | 2024-01-20 15:52 | XMS_ITS | Encounter Summary ---
Author Organization [facility] Address [address] [place] [address] Care Team Providers Care Trail Construction Worker Name Role Phone Katia Blanco IMANI Primary Care Provider [phone] Reason for Referral * Vascular Lab (Routine) - Closed Specialty Diagnoses / Procedures Referred By [facility] Referred To Contact Diagnoses Cirrhosis of liver without ascites, unspecified hepatic cirrhosis type (HCC-CMS) Procedures US HEPATOPORTAL VEIN DUPLEX Guicho Rosales MD [address] [place] [phone] Referral ID Status Reason Start Date Expiration Date Visits Re quested Visits Authorized [id number] Closed 01/01/2020 1 1 Encounter Details Date Type Department Care Team (Late st Contact Info) Description 01/01/[address] [facility] [place] [address] Guicho Rosales MD [address] [place] [phone] Cirrhosis of liver without ascites, unspecified [...] Visit [facility] General Surgery - [address] [address] Bon Gutierrez MD 111 [facility], Level 5 [place] [address] 09/10/2024 10:00 EDT Appointment Shaina Bergeron Ultrasound [address] [place] [address] documented as of this encounter [...] (HCC-CMS) documented in this encounter Care Teams Trail Construction Worker Relationship Specialty Start Date End Date Katia Blanco [place] [address] [place] [address] PCP - General 03/26/19 09/20/22 documented as of this encounter
--- OUTSIDE RECORDS SUMMARY | 2024-01-20 15:52 | XMS_ITS | Encounter Summary ---
Author Organization [facility] Address [address] [place] [address] Care Team Providers Care Research Project Coordinator Name Role Phone George Lou [facility] Primary Care Provider [phone] Reason for Referral * Radiology Services (Routine/Next Available) - Authorization Not Required Specialty Diagnoses / Procedures Referred By Contac t Referred To Contact Diagnoses Cirrhosis (HCC-CMS) Procedures US LIVER/ABDOMEN VISCERAL DUPLEX US LIVER WITH ELASTOGRAPHY Norbert Bennett PA-C [address] [place] [phone] [facility] Referral ID Status Reason Start Date Expiration Date Visits Requested Visits Authorized [id number] Authorization Not Required 10/14/2023 1 1 Reason for Visit * Radiology Services (Routine/Next Available) - Authorization Not Required Specialty Diagnoses / Procedures Referred By Contac t Referred To Contact Diagnoses Cirrhosis (HCC-CMS) Procedures US LIVER/ABDOMEN VISCERAL DUPLEX US LIVER WITH ELASTOGRAPHY Norbert Bennett PA-C [address] [phone] [facility] Referral ID Status Reason Start Date Expiration Date Visits Requested Visits Authorized [id number] Authorization Not Required 10/14/2023 1 1 Encounter Details Date Type Department Care Team (Latest Contact Info) Description 11/17/2023 11:03 EDT - 11/17/2023 15:06 EDT Hospital Encounter [facility] Center Radiology [facility] [place] [address] [place] [address] Cirrhosis ([facility]) Discharge Disposition: Home or Self Care Social [...] times daily. Obtaining through Patient Assistance Program ([employer]), approved on 05/31/19 x1 year. Phone number for PAP: [phone] semaglutide (OZEMPIC) subcutaneous pen Inject into the [...] 01/23/2024 10:00 EDT Office Visit [facility] General Surgery - [facility] [address] [place], [place] 3865[address] Bon Gutierrez MD 111 [facility], Level 5 [place] [phone] 09/10/2024 10:00 EDT Appointment Shaina Bergeron Ultrasound [address] [place], [place] [phone] documented as of this encounter Procedures Procedure [...] malfunction. AJR Am J Roentgenol. 1996. May;168(2):467-72. [id number] Narrative 11/19/2023 13:29 EDT US ABDOMEN LIMITED WITH COMPLETE DUPLEX ??11/17/2023 1:41 PM SIGNS AND SYMPTOMS/COMMENTS: Cirrhosis COMPARISONS: Ultrasound abdomen from 10/10/2023 GRAYSCALE: TECHNIQUE: Grayscale ultrasound images of the liver were obtained. INDICATION FOR GRAYSCALE: Evaluate for structural abnormality Resulting Agency Comment [id number] Procedure Note Madelaine Francois MD - 11/19/2023 [...] shunt malfunction. AJR Am J Roentgenol. 1997.May;168(2):467-72. [id number] Norbert Bennett PA-C IMG US ORDERABLES documented in this encounter Visit Diagnoses Diagnosis Cirrhosis (HCC-CMS) Cirrhosis of liver without mention of alcohol documented in this encounter Care Teams Research Project Coordinator Relationship Specialty Start Date End Date George Lou RPA [address] [place] [address] PCP - General Family Medicine - Primary Care 09/21/22 documented as of this encounter
--- OUTSIDE RECORDS SUMMARY | 2024-01-20 15:52 | XMS_ITS | Encounter Summary ---
Author Organization [facility] Address [address] [place] [address] Care Team Providers Care Chief Lending Officer Name Role Phone Katia Blanco IMANI Primary Care Provider [phone] Reason for Visit * Reason Onset Date Comments Appointment Related 06/24/2021 Encounter Details Date Type Department Care Team (Late st Contact Info) Description 06/24/2021 Telephone [facility] Interventional Radiology - [address] [address] Guicho Rosales MD [address] [place] [address] 1 [place] [address] Appointment Related Social History Tobacco [...] Telephone Encounter - Lizy Hull - 06/24/2021 9258 EDT Incoming voicemail from Alonzo regarding follow [...] Info) Description 01/23/2024 10:00 EDT Office Visit [facility] General Surgery - [address] [address]60[address] Bon Gutierrez MD 111 [facility], Level 5 [place] [phone] 09/10/2024 10:00 EDT Appointment Shaina Bergeron Ultrasound 0 [place] [address] documented as of this encounter Visit Diagnoses Not on filedocumented in this encounter Care Teams Chief Lending Officer Relationship Specialty Start Date End Date Katia Blanco FNP [facility] [place] [address] PCP - General 03/26/19 09/20/22 documented as of this encounter
--- OUTSIDE RECORDS SUMMARY | 2024-01-20 15:52 | XMS_ITS | Encounter Summary ---
Author Organization [facility] Address [address] [place] [address] Care Team Providers Care Business Reporter Name Role Phone George Lou [facility] Primary Care Provider [phone] Reason for Referral * Radiology Services (Routine/Next Available) - Authorization Not Required Specialty Diagnoses / Procedures Referred By Contac t Referred To Contact Diagnoses Other cirrhosis of liver (HCC-CMS) Procedures US LIVER/ABDOMEN VISCERAL DUPLEX Guicho Rosales MD [address] [place] [phone] [facility] Referral ID Status Reason Start Date Expiration Date Visits Requested Visits Authorized [id number] Authorization Not Required 09/12/2023 1 1 Reason for Visit * Radiology Services (Routine/Next Available) - Authorization Not Required Specialty Diagnoses / Procedures Referred By Tad alcaraz Referred To Contact Diagnoses Other cirrhosis of liver (HCC-CMS) Procedures US LIVER/ABDOMEN VISCERAL DUPLEX Guicho Rosales MD [address] [place] [phone] [facility] Referral ID Status Reason Start Date Expiration Date Visits Requested Visits Authorized [id number] Authorization Not Required 09/12/2023 1 1 Encounter Details Date Type Department Care Team (Latest Contact Info) Description 10/10/2023 11:01 EDT - 10/10/2023 23:59 EDT Hospital Encounter Shaina Bergeron Ultrasound [address] [place] [address] Other cirrhosis of liver ([facility]) Discharge Disposition: Home or Self Care [...] times daily. Obtaining through Patient Assistance Program ([employer]), approved on 05/31/19 x1 year. Phone number for PAP: [phone] semaglutide (OZEMPIC) subcutaneous pen Inject into the [...] Visit [facility] General Surgery - [facility] [address] [place], [place] [address] Bon Gutierrez MD 111 [facility], Level 5 [place] [address] 09/10/2024 10:00 EDT Appointment Shaina Bergeron Ultrasound [address] [place] [address] documented as of this encounter [...] shunt malfunction. AJR Am J Roentgenol. 1996. May;168(2):467-82. I have personally reviewed the images and the above interpretation and agree with the findings. [id number] Narrative 10/10/2023 14:58 EDT US ABDOMEN LIMITED WITH LIMITED DUPLEX ??10/10/2023 11:20 AM SIGNS AND SYMPTOMS/COMMENTS: TIPS. Need ultrasound surveillance to assess for patency and stenosis.;K74.69:Other cirrhosis of liver (HCC-CMS) COMPARISONS: TIPS ultrasound from 09/21/2022 and 09/08/2021 GRAYSCALE: TECHNIQUE: Grayscale ultrasound images of the liver were obtained. INDICATION FOR GRAYSCALE: Evaluate for structural abnormality Resulting Agency Comment [id number] Procedure Note Selvin Rowe MD - 10/10/2023 [...] the above interpretation andagree with the findings. [id number] Guicho Rosales MD [facility] US ORDER CLAUDIO documented in this encounter Visit Diagnoses Diagnosis Other cirrhosis of liver (HCC-CMS) documented in this encounter Care Teams Business Reporter Relationship Specialty Start Date End Date George Lou RPA [address] [address] PCP - General Family Medicine - Primary Care 09/21/22 documented as of this encounter
--- OUTSIDE RECORDS SUMMARY | 2024-01-20 15:52 | XMS_ITS | Encounter Summary ---
Author Organization [facility] Address [address] [place] [address] Care Team Providers Care Field Marketing Coordinator Name Role Phone Katia Blanco Primary Care Provider [phone] Reason for Visit * Reason Onset Date Comments Medication Management 06/05/2019 Encounter Details Date Type Department Care Team (Late st Contact Info) Description 06/05/2019 Telephone [facility] Gastroenterology - [address] [address] Brody Duran MD PhD 111 [facility], Level [address] [place] [address] Medication Management Social History Tobacco [...] Patient states he was called yesterday by [facility] stating his prescription is ready but will cost ~$600. Called pharmacy to deactivate prescription they have, as patient will be unable to afford this. Previously received and faxed patient's completed PAP application on 05/28/19. Called PAP at [phone] to follow up on status of application. [...] Description 01/23/2024 10:00 EDT Office Visit [facility] General Surgery - [address] [address] Bon Gutierrez MD 111 [facility], Level [address] [place] [phone] 09/10/2024 10:00 EDT Appointment Shaina Bergeron [place] [address] [place], [place] [address]24[address] documented as of this encounter Visit Diagnoses Not on filedocumented in this encounter Historical Medications * This list may reflect changes made after this encounter. Medication Sig Dispensed Refills Start Date End Date Multivitamins with Minerals tablet tablet Take 1 Tab by mouth daily. added in this encounter Care Teams Field Marketing Coordinator Relationship Specialty Start Date End Date Katia Blanco [place] [address] PCP - General 03/26/19 09/20/22 documented as of this encounter
--- OUTSIDE RECORDS SUMMARY | 2024-01-20 15:52 | XMS_ITS | Encounter Summary ---
Author Organization [facility] Address [address] [place] [address] Care Team Providers Care Networking Technology Instructor Name Role Phone Katia Blanco TALENT [employer]ER Primary Care Provider [phone] George Lou RPA Primary Care Provider [phone] Encounter Details Date Type Department Care Team (Late st Contact Info) Description 11/25/2019 Lab Requisition [facility] Pathology & Laboratory Medicine - [facility] [address] [place], [place] [phone] Outr Resulting Lab, Provider Social History Tobacco [...] 01/23/2024 10:00 EDT Office Visit [facility] General Surgery - [facility] [address] [place], [place] [address] Bon Gutierrez MD 111 [facility], Level 5 [place] [address] 09/10/2024 10:00 EDT Appointment Shaina Mejia [address] [place] [address] documented as of this encounter Procedures Procedure Name Priority Date/Time Associated Diagnosis Comments ZZCOVID-19 TEST [facility] PCR Today 11/25/2019 6:57 EDT COVID-19 TESTING Routine 11/25/2019 6:57 EDT documented in this encounter Results * COVID-19 TEST [facility] PCR (11/25/2019 6:57 EDT) Swab ENTIRE NASOPHARYNX / Unknown 11/25/2019 6:57 EDT 11/25/2019 15:59 EDT Provider Outr Resulting Lab MICROBIOLOGY - GENERAL ORDERABLES [facility] [address] [place] [address] * COVID-19 TESTING (11/25/2019 6:57 EDT) COVID-19 rt-PCR Result Negative Negative 11/25/2019 21:27 EDT [facility] Comment: This test has not [...] history, and epidemiological information. Performed on the PicApp instrument Performing Lab [place] [facility] 11/25/2019 21:27 EDT [facility] Swab 11/25/2019 6:57 EDT 11/25/2019 15:59 EDT Provider Outr Resulting Lab MICROBIOLOGY - GENERAL ORDERABLES Performing Organization Address City/State/[facility] Co de Phone Number [facility] [address] [place] [address] documented in this encounter Visit Diagnoses Not on filedocumented in this encounter Care Teams Networking Technology Instructor Relationship Specialty Start Date End Date Katia Blanco FNP [address] [place], [place] [address] PCP - General 03/26/19 09/20/22 George Lou RPA [address] [phone] PCP - General Family Medicine - Primary Care 09/21/22 documented as of this encounter
--- OUTSIDE RECORDS SUMMARY | 2024-01-20 15:52 | XMS_ITS | Encounter Summary ---
Author Organization [facility] Address [address] [place] [address] Care Team Providers Care Administrative Office Assistant Name Role Phone Katia Blanco IMANI Primary Care Provider [phone] Reason for Visit * Reason Comments Follow-up Encounter Details Date Type Department Care Team (Late st Contact Info) Description 09/08/2021 10:00 EDT Office Visit [facility] Interventional Radiology - [address] [phone] Guicho Rosales MD [address] [place] [address] Level 1 [place] [address] Alcoholic cirrhosis of liver without [...] laxative. 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 He has been [...] [facility] [address] [place], [place] [address] Bon Gutierrez MD 111 [facility], Level [address] [place] [address] 09/10/2024 10:00 EDT Appointment Shaina Bergeron Ultrasound [address] [place], [place] [phone] documented as of this encounter Visit Diagnoses Diagnosis Alcoholic cirrhosis of liver without ascites (HCC-CMS)- Primary Alcoholic cirrhosis of liver documented in this encounter Care Teams Administrative Office Assistant Relationship Specialty Start Date End Date Katia Blanco FNP [facility]yl [facility] [place] [address] PCP - General 03/26/19 09/20/22 documented as of this encounter
--- OUTSIDE RECORDS SUMMARY | 2024-01-20 15:52 | XMS_ITS | Encounter Summary ---
Author Organization [facility] Address [address] [place] [address] Care Team Providers Care Commercial Agent Name Role Phone Katia Blanco Primary Care Provider [phone] Encounter Details Date Type Department Care Team (Late st Contact Info) Description 06/24/2020 Telephone [facility] Gastroenterology - [address] [address] Brody Duran MD PhD [address] [place] [address], Level [address] [place] [address] Social History Tobacco Use Types [...] - Shonda Camacho - 06/24/2020 0902 EDT [facility] Gastroenterology/Hepatology Clinic Fax received stating patient is no longer eligible for [facility] to receive rifaximin. Per Dr. [...] [facility] General Surgery - [address] [address]267[address] Bon Gutierrez MD 111 [facility], Level [address] [place] [address] 09/10/2024 10:00 EDT Appointment Shaina Bergeron Ultrasound [address] [place], [place] [address] documented as of this encounter Visit Diagnoses Not on filedocumented in this encounter Care Teams Commercial Agent Relationship Specialty Start Date End Date Katia Blanco FNP Cheryl [facility] [place] [address] PCP - General 03/26/19 09/20/22 documented as of this encounter
--- OUTSIDE RECORDS SUMMARY | 2024-01-20 15:52 | XMS_ITS | Encounter Summary ---
Author Organization [facility] Address [address] [place] [address] Care Team Providers Care Lathe Tender Name Role Phone Katia Blanco IMANI Primary Care Provider [phone] Reason for Visit * Reason Onset Date Comments Appointment Related 03/03/2021 Encounter Details Date Type Department Care Team (Late st Contact Info) Description 03/03/2021 Telephone [facility] Interventional Radiology - [address] [phone] Guicho Rosales MD [address] [place] [address] 1 [place] [address] Appointment Related Social History Tobacco [...] else to give us a call at [phone] option 1 documented in this encounter Plan of Treatment Upcoming Encounters Date Type Department Care Team (Late st Contact Info) Description 01/23/2024 10:00 EDT Office Visit [facility] General Surgery - [facility] [address] [place], [place] 374[address] Bon Gutierrez MD 111 [facility], Level [address] [place] [phone] 09/10/2024 10:00 EDT Appointment Shaina Bergeron Ultrasound 0 [place] [address] documented as of this encounter Visit Diagnoses Not on filedocumented in this encounter Care Teams Lathe Tender Relationship Specialty Start Date End Date [place] [address] PCP - General 03/26/19 09/20/22 documented as of this encounter
--- OUTSIDE RECORDS SUMMARY | 2024-01-20 15:52 | XMS_ITS | Encounter Summary ---
Author Organization [facility] Address [address] [place] [address] Care Team Providers Care Mine Car Repairer Name Role Phone George Lou NORMA Primary Care Provider [phone] Reason for Referral * Radiology Services (Routine/Next Available) - Authorization Not Required Specialty Diagnoses / Procedures Referred By Tad alcaraz Referred To Contact Diagnoses Other cirrhosis of liver (HCC-CMS) Procedures US LIVER/ABDOMEN VISCERAL DUPLEX Guicho Rosales MD [address] [place] [phone] [facility] Referral ID Status Reason Start Date Expiration Date Visits Requested Visits Authorized [id number] Authorization Not Required 09/12/2023 1 1 Encounter Details Date Type Department Care Team (Late st Contact Info) Description 09/12/2023 Orders Only [facility] Interventional Radiology - [place] [phone] Guicho Rosales MD [address] [place] [address] Other cirrhosis of liver (HCC-CMS) (Primary [...] 01/23/2024 10:00 EDT Office Visit [facility] General Surgery - [address] [address] Bon Gutierrez MD 111 [facility], [facility], Level [address] [place] [phone] 09/10/2024 10:00 EDT Appointment Shaina Bergeron Ultrasound [address] [place] [address] documented as of this encounter [...] shunt malfunction. AJR Am J Roentgenol. 1996. May;168(2):467-50. I have personally reviewed the images and the above interpretation and agree with the findings. [id number] Narrative 10/10/2023 14:58 EDT US ABDOMEN LIMITED WITH LIMITED DUPLEX ??10/10/2023 11:20 AM SIGNS AND SYMPTOMS/COMMENTS: TIPS. Need ultrasound surveillance to assess for patency and stenosis.;K74.69:Other cirrhosis of liver (HCC-CMS) COMPARISONS: TIPS ultrasound from 09/21/2022 and 09/08/2021 GRAYSCALE: TECHNIQUE: Grayscale ultrasound images of the liver were obtained. INDICATION FOR GRAYSCALE: Evaluate for structural abnormality Resulting Agency Comment [id number] Procedure Note Selvin Rowe MD - 10/10/2023 [...] the above interpretation andagree with the findings. [id number] Guicho Rosales MD IMG US ORDER CLAUDIO documented in this encounter Visit Diagnoses Diagnosis Other cirrhosis of liver (HCC-CMS)- Primary Other cirrhosis of liver (HCC-CMS) documented in this encounter Care Teams Mine Car Repairer Relationship Specialty Start Date End Date George Lou RPA [address] [place] [address] PCP - General Family Medicine - Primary Care 09/21/22 documented as of this encounter
--- OUTSIDE RECORDS SUMMARY | 2024-01-20 15:52 | XMS_ITS | Encounter Summary ---
Author Organization [facility] Address [address] [place] [address] Care Team Providers Care Cashier General Name Role Phone Katia Blanco IMANI Primary Care Provider [phone] Reason for Referral * Radiology Services (Routine/Next Available) - Authorization Not Required Specialty Diagnoses / Procedures [facility] Referred To Contact Diagnoses Alcoholic cirrhosis of liver without ascites (HCC-CMS) Procedures US LIVER/ABDOMEN VISCERAL DOPPLER Guicho Rosales MD [address] [place] [phone] [facility] Referral ID Status Reason Start Date Expiration Date Visits Requested Visits Authorized [id number] Authorization Not Required 07/20/2022 1 1 Encounter Details Date Type Department Care Team (Late st Contact Info) Description 07/20/2022 Orders Only [facility] Interventional Radiology - [place] [id number] Guicho Rosales MD [address] [place] [phone] Alcoholic cirrhosis of liver without ascites [...] System [facility] General Surgery - [address] [id number] Bon Gutierrez MD 111 [facility], [facility], Level 5 [place] [address] 09/10/2024 10:00 EDT Appointment Shaina Bergeron Ultrasound [address] [place] [address] documented as of this encounter [...] intrahepaticportosystemic shunt malfunction. AJR Am J Roentgenol. 1996.May;168(2):097-10. Guicho Rosales MD IM US ORDER CLAUDIO documented in this encounter Visit Diagnoses Diagnosis Alcoholic cirrhosis of liver without ascites (HCC-CMS)- Primary Alcoholic cirrhosis of liver Alcoholic cirrhosis of liver without ascites (HCC-CMS) Alcoholic cirrhosis of liver documented in this encounter Care Teams Cashier General Relationship Specialty Start Date End Date Katia Blanco [place] [place] [address] PCP - General 03/26/19 09/20/22 documented as of this encounter
--- OUTSIDE RECORDS SUMMARY | 2024-01-20 15:52 | XMS_ITS | Encounter Summary ---
Author Organization [facility] Address [address] [place] [address] Care Team Providers Care Neurosurgery Spine Physician Name Role Phone Katia Blanco IMANI Primary Care Provider [phone] Reason for Visit * Reason Onset Date Comments Appointment Related 07/06/2021 IR follow up Encounter Details Date Type Department Care Team (Late st Contact Info) Description 07/06/2021 Telephone [facility] Interventional Radiology - [facility] [address] [place] [address] Melissa Munroe, RN [address] [place] [address] Appointment Related (IR follow up) Social History [...] Office Visit [facility] General Surgery - [facility] [address] [place], [place] 4340[address] Bon Gutierrez MD 111 [facility], Level 5 [place] [phone] 09/10/2024 10:00 EDT Appointment Shaina Bergeron Ultrasound [address] [place], [place] [address] documented as of this encounter Visit Diagnoses Not on filedocumented in this encounter Care Teams Neurosurgery Spine Physician Relationship Specialty Start Date End Date Katia Blanco [place] [address] PCP - General 03/26/19 09/20/22 documented as of this encounter
--- OUTSIDE RECORDS SUMMARY | 2024-01-20 15:52 | XMS_ITS | Encounter Summary ---
Author Organization [facility] Address [address] [place] [address] Care Team Providers Care Laboratory Miller Name Role Phone Katia Blanco IMANI Primary Care Provider [phone] Reason for Visit * Reason Onset Date Comments Appointment Related 03/02/2021 Encounter Details Date Type Department Care Team (Late st Contact Info) Description 03/02/2021 Telephone [facility] Interventional Radiology - [address] [id number] Guicho Rosales MD [address] [place] [address] 1 [place] [address] Appointment Related Social History Tobacco [...] phone call to IR clinic line at [phone] option 1 Left details regarding plan for [...] Description 01/23/2024 10:00 EDT Office Visit [facility] General Surgery - [address] 568761 Bon Gutierrez MD 111 [facility], Level [address] [place] [phone] 09/10/2024 10:00 EDT Appointment Shaina Mejia 0 [place], [place] [address] documented as of this encounter Visit Diagnoses Not on filedocumented in this encounter Care Teams Laboratory Miller Relationship Specialty Start Date End Date Katia Blanco [place] [address] PCP - General 03/26/19 09/20/22 documented as of this encounter
--- OUTSIDE RECORDS SUMMARY | 2024-01-20 15:52 | XMS_ITS | Encounter Summary ---
Author Organization [facility] Address [address] [place] [address] Care Team Providers Care Artificial Log Machine Operator Name Role Phone Katia Blanco INSTANT PRINTER OPERATOR Primary Care Provider [phone] Encounter Details Date Type Department Care Team (Late st Contact Info) Description 12/22/2020 Orders Only [facility] Interventional Radiology - [address] [address] Guicho Rosales MD [address] [place] [address], Level 1 [place] [phone] Cirrhosis ([facility]) (Primary Dx) Social History Tobacco Use [...] [facility] - [facility] [address] [place], [place] 4[address] Bon Gutierrez MD 111 [facility], Level 5 [place] [phone] 09/10/2024 10:00 EDT Appointment Shaina Mejia [address] [place] [address] documented as of this encounter Visit Diagnoses Diagnosis Cirrhosis (HCC-CMS)- Primary Cirrhosis of liver without mention of alcohol documented in this encounter Care Teams Artificial Log Machine Operator Relationship Specialty Start Date End Date Katia [place] [address] PCP - General 03/26/19 09/20/22 documented as of this encounter
--- OUTSIDE RECORDS SUMMARY | 2024-01-20 15:52 | XMS_ITS | Encounter Summary ---
Author Organization [facility] Address [address] [place] [address] Care Team Providers Care Public Relations Account Executive Name Role Phone Katia Blanco IMANI Primary Care Provider [phone] Reason for Referral * Vascular Lab (Routine) - Closed Specialty Diagnoses / Procedures Referred By Nisreenac t Referred To Contact Diagnoses Cirrhosis of liver without ascites, unspecified hepatic cirrhosis type (HCC-CMS) Procedures US HEPATOPORTAL VEIN DUPLEX Guicho Rosales MD [address] [place] [phone] Referral ID Status Reason Start Date Expiration Date Visits Re quested Visits Authorized [id number] Closed 01/01/2020 1 1 Reason for Visit * Vascular Lab (Routine) - Closed Specialty Diagnoses / Procedures Referred By Contreinaldo alcaraz Referred To Contact Diagnoses Cirrhosis of liver without ascites, unspecified hepatic cirrhosis type (HCC-CMS) Procedures US HEPATOPORTAL VEIN DUPLEX Guicho Rosales MD [address] [place] [phone] Referral ID Status Reason Start Date Expiration Date Visits Re quested Visits Authorized [id number] Closed 01/01/2020 1 1 Encounter Details Date Type Department Care Team (Latest Contact Info) Description 01/09/2020 8:07 EDT - 01/09/2020 23:59 EDT Hospital [facility] Radiology [address] [address] Cirrhosis of liver without ascites, unspecified hepatic [...] times daily. Obtaining through Patient Assistance Program ([employer]), approved on 05/31/19 x1 year. Phone number for PAP: [phone] valsartan (DIOVAN) 80 mg tablet Take 160 [...] [facility] - [facility] [address] [place], [place] [phone] Bon Gutierrez MD 111 [facility], Level [address] [place] [phone] 09/10/2024 10:00 EDT Appointment Shaina Mejia [address] [place], [place] [address] documented as of this encounter Procedures Procedure [...] (HCC-CMS) documented in this encounter Care Teams Public Relations Account Executive Relationship Specialty Start Date End Date Katia Blanco [place] [address] PCP - General 03/26/19 09/20/22 documented as of this encounter
--- OUTSIDE RECORDS SUMMARY | 2024-01-20 15:52 | XMS_ITS | Encounter Summary ---
Author Organization [facility] Address [address] [place] [address] Care Team Providers Care Dining Room Server Name Role Phone Katia Blanco FACTORY EXPERT Primary Care Provider [phone] Encounter Details Date Type Department Care Team ([facility] st Contact Info) Description 05/28/2019 Telephone [facility] - [facility] [address] [place], [place] [phone] Shonda Camacho [facility] [address] [place], [place] [id number] Social History Tobacco Use Types Packs/Day Years [...] Telephone Encounter - Shonda Camacho - 05/28/2019 2125 EST Received patient's completed PAP application for rifaximin. Faxed to [employer]. Will call company later this week regarding status of application. Michoacano JimenezD Pharmacist Clinician - Gastroenterology/Hepatology 05/28/2019 documented in this encounter Plan of Treatment Upcoming Encounters Date Type Department Care Team (Late st Contact Info) Description 01/23/2024 10:00 EDT Office Visit [facility] General Surgery - [address] [phone] Bon Gutierrez MD [address] [place] [address], [address] [place] [phone] 09/10/2024 10:00 EDT Appointment Shaina Bergeron [place] [address]30 [place], [place] 6[address] documented as of this encounter Visit Diagnoses Not on filedocumented in this encounter Care Teams Dining Room Server Relationship Specialty Start Date End Date Katia [place] [address] PCP - General 03/26/19 09/20/22 documented as of this encounter
--- OUTSIDE RECORDS SUMMARY | 2024-01-20 15:52 | XMS_ITS | Encounter Summary ---
Author Organization [facility] Address [address] [place] [address] Care Team Providers Care Mulling Machine Operator Name Role Phone CarmineGeorge NORMA Primary Care Provider [phone] Reason for Visit * Reason Onset Date Comments Appointment Related 09/27/2023 Encounter Details Date Type Department Care Team (Late st Contact Info) Description 09/27/2023 Telephone [facility] Interventional Radiology - [address] [phone] Guicho Rosales MD [address] [place] [address] 1 [place] [address] Appointment Related Social History Tobacco [...] am check in; 11:30am scan time Location: [address] [address] Followed by: October Appointment type: Follow up office visit Scheduled with: Marcel Bennett Time: 2:00pm Location: Interventional Radiology Clinic [facility], 3rd Floor documented in this encounter Plan of Treatment Upcoming Encounters Date Type Department Care Team (Late st Contact Info) Description 01/23/2024 10:00 EDT Office Visit [facility] General Surgery - [address] 6840[address] Bon Gutierrez MD [address] [place] [address], Level [address] [place] [address] 09/10/2024 10:00 EDT Appointment [address] [address] documented as of this encounter Visit Diagnoses Not on filedocumented in this encounter Care Teams Mulling Machine Operator Relationship Specialty Start Date End Date George Lou RPA [address] [place] [address] PCP - General Family Medicine - Primary Care 09/21/22 documented as of this encounter
--- OUTSIDE RECORDS SUMMARY | 2024-01-20 15:52 | XMS_ITS | Encounter Summary ---
Author Organization [facility] Address [address] [place] [address] Care Team Providers Care Fast Food Fry Cook Name Role Phone George Lou [facility] Primary Care Provider [phone] Reason for Referral * Radiology Services (Routine/Next Available) - Authorization Not Required Specialty Diagnoses / Procedures Referred By Contac t Referred To Contact Diagnoses Alcoholic cirrhosis of liver without ascites (HCC-CMS) Procedures US LIVER/ABDOMEN VISCERAL DOPPLER Guicho Rosales MD [address] [place] [phone] [facility] Referral ID Status Reason Start Date Expiration Date Visits Requested Visits Authorized [id number] Authorization Not Required 07/20/2022 1 1 Reason for Visit * Radiology Services (Routine/Next Available) - Authorization Not Required Specialty Diagnoses / Procedures Referred By Contac t Referred To Contact Diagnoses Alcoholic cirrhosis of liver without ascites (HCC-CMS) Procedures US LIVER/ABDOMEN VISCERAL DOPPLER Guicho Rosales MD [address] [place] [phone] [facility] Referral ID Status Reason Start Date Expiration Date Visits Requested Visits Authorized [id number] Authorization Not Required 07/20/2022 1 1 Encounter Details Date Type Department Care Team (Latest Contact Info) Description 09/21/2022 7:28 EDT - 09/21/2022 7:29 EDT Hospital Encounter [facility] Radiology [facility] [place] [address] [place] [address] Alcoholic cirrhosis of liver without ascites (HCC-CMS) [...] times daily. Obtaining through Patient Assistance Program ([employer]), approved on 05/31/19 x1 year. Phone number for PAP: [phone] valsartan (DIOVAN) 80 mg tablet Take 160 [...] Description 01/23/2024 10:00 EDT Office Visit [facility] General Surgery - [facility] [address] [place], [place] [phone] Bon Gutierrez MD 111 [facility], Level [address] [place] [phone] 09/10/2024 10:00 EDT Appointment Shaina Bergeron Ultrasound [address] [place], [place] [phone] documented as of this encounter Procedures Procedure [...] RY, Marilyn LESTER, Nicole WD, Naresh KM, Nelyl SA, Pilgram TK.Doppler sonography findings associated with transjugular intrahepaticportosystemic shunt malfunction. AJR Am J Roentgenol. 1996.May;168(2):467-72. Guicho Rosales MD [facility] US ORDER CLAUDIO documented in this encounter Visit Diagnoses Diagnosis Alcoholic cirrhosis of liver without ascites (HCC-CMS) Alcoholic cirrhosis of liver documented in this encounter Care Teams Fast Food Fry Cook Relationship Specialty Start Date End Date George Lou RPA [address] [address] PCP - General Family Medicine - Primary Care 09/21/22 documented as of this encounter
--- OUTSIDE RECORDS SUMMARY | 2024-01-20 15:52 | XMS_ITS | Encounter Summary ---
Author Organization [facility] Address [address] [place] [address] Care Team Providers Care Senior Linux Unix Administrator Name Role Phone Katia Blanco Primary Care Provider [phone] Encounter Details Date Type Department Care Team [...] Visit [facility] General Surgery - [address] [address] Bon Gutierrez MD 111 [facility], Level [address] [place] [phone] 09/10/2024 10:00 EDT Appointment Shaina Mejia [address] [place] [address] documented as of this encounter Visit Diagnoses Not on filedocumented in this encounter Care Teams Senior Linux Unix Administrator Relationship Specialty Start Date End Date Katia [place] [address] PCP - General 03/26/19 09/20/22 documented as of this encounter
--- OUTSIDE RECORDS SUMMARY | 2024-01-20 15:52 | XMS_ITS | Encounter Summary ---
Author Organization [facility] Address [address] [place] [address] Care Team Providers Care District Plant Superintendent Name Role Phone Katia Blanco FACTORY HAND Primary Care Provider [phone] George Lou RPA Primary Care Provider [phone] Encounter Details Date Type Department Care Team (Late st Contact Info) Description 11/02/2019 Lab Requisition [facility] Pathology & Laboratory Medicine - [facility] [address] [place], [place] [address] Outr Resulting Lab, Provider Social History Tobacco [...] Visit [facility] General Surgery - [facility] [address] [place], [place] [address] Bon Gutierrez MD 111 [facility], Level [address] [place] [phone] 09/10/2024 10:00 EDT Appointment Shaina Bergeron Ultrasound [address] [place], [place] [address] documented as of this encounter Procedures Procedure Name Priority Date/Time Associated Diagnosis Comments ZZCOVID-19 TEST [facility] PCR Today 11/02/2019 15:50 EDT COVID-19 TESTING Routine 11/02/2019 15:5 0 EDT documented in this encounter Results * COVID-19 TEST [facility] PCR (11/02/2019 15:50 EDT) Swab ENTIRE NASOPHARYNX / Unknown 11/02/2019 15:50 EDT 11/02/2019 20:23 EDT Provider Outr Resulting Lab MICROBIOLOGY - GENERAL ORDERABLES [facility] [address] [place] [address] * COVID-19 TESTING (11/02/2019 15:50 EDT) COVID-19 rt-PCR Result Negative Negative 11/03/2019 0:36 EDT [facility] Comment: This test has not [...] history, and epidemiological information. Performed on the Gildher Fusion instrument Performing Lab Loiza [facility] 11/03/2019 0:36 EDT [facility] Swab 11/02/2019 15:5 0 EDT 11/02/2019 20:23 EDT Provider Outr Resulting Lab MICROBIOLOGY - GENERAL ORDERABLES Performing Organization Address City/State/[facility] Co de Phone Number [facility] [address] [place] [address] documented in this encounter Visit Diagnoses Not on filedocumented in this encounter Care Teams District Plant Superintendent Relationship Specialty Start Date End Date Katia Blanco FNP [address] [place], [place] [phone] PCP - General 03/26/19 09/20/22 George Lou RPA [address] [phone] PCP - General Family Medicine - Primary Care 09/21/22 documented as of this encounter
--- OUTSIDE RECORDS SUMMARY | 2024-01-20 15:52 | XMS_ITS | Encounter Summary ---
Author Organization [facility] Address [address] [place] [address] Care Team Providers Care Touch Up Painter Hand Name Role Phone Katia Blanco IMANI Primary Care Provider [phone] Reason for Visit * Reason Onset Date Comments Appointment Related 07/03/2021 Encounter Details Date Type Department Care Team (Late st Contact Info) Description 07/03/2021 Telephone [facility] Interventional Radiology - [address] [address] Guicho Rosales MD [address] [place] [address] 1 [place] [address] Appointment Related Social History Tobacco [...] return phone call to radiology scheduling at [phone] to schedule Ultrasound when he is available- [...] Visit [facility] General Surgery - [address] [address]38[address] Bon Gutierrez MD 111 [facility], [address] [place] [phone] 09/10/2024 10:00 EDT Appointment Shania Bergeron Ultrasound 0 [place], [place] [address] documented as of this encounter Visit Diagnoses Not on filedocumented in this encounter Care Teams Touch Up Painter Hand Relationship Specialty Start Date End Date Katia Blanco F[place] [address] PCP - General 03/26/19 09/20/22 documented as of this encounter
--- OUTSIDE RECORDS SUMMARY | 2024-01-20 15:52 | XMS_ITS | Encounter Summary ---
Author Organization [facility] Address [address] [place] [address] Care Team Providers Care Photogrammetric Engineer Name Role Phone George Lou NORMA Primary Care Provider [phone] Reason for Referral * Radiology Services (Routine/Next Available) - Authorization Not Required Specialty Diagnoses / Procedures Referred By Contac t Referred To Contact Diagnoses Cirrhosis (HCC-CMS) Procedures US LIVER/ABDOMEN VISCERAL DUPLEX US LIVER WITH ELASTOGRAPHY Carlos A Escobedo PA-C [address] [place] [phone] [facility] Referral ID Status Reason Start Date Expiration Date Visits Requested Visits Authorized [id number] Authorization Not Required 10/14/2023 1 1 * Radiology Services (Routine/Next Available) - Authorized Specialty Diagnoses / Procedures Referred By Contac t Referred To Contact Radiology Diagnoses Cirrhosis (HCC-CMS) Procedures MR ABDOMEN W WO CONTRAST Carlos A Escobedo PA-C [address] [address] [facility] Referral ID Status Reason Start Date Expiration Date V isits Requested Visits Authorized [id number] Authorized 09/21/2023 12/20/2023 1 1 * Radiology Services (Routine/Next Available) - Authorization Not Required Specialty Diagnoses / Procedures Referred By Contreinaldo t Referred To Contact Diagnoses Cirrhosis (HCC-CMS) Procedures US LIVER/ABDOMEN VISCERAL DUPLEX US LIVER WITH ELASTOGRAPHY Carlos A Escobedo PA-C [address] [place] [phone] [facility] Referral ID Status Reason Start Date Expiration Date Visits Requested Visits Authorized [id number] Authorization Not Required 10/10/2023 1 1 Reason for Visit * Reason Comments IR Procedure Follow-up Encounter Details Date Type Department Care Team (Late st Contact Info) Description 10/10/2023 14:00 EDT Office Visit [facility] Interventional Radiology - [address] [phone] Carlos A Escobedo PA-C [address] [place] [phone] Cirrhosis (HCC-CMS) (Primary Dx) Social History [...] Overall, he feels well 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 No alcohol reported [...] Description 01/23/2024 10:00 EDT Office Visit [facility] General Surgery - [address] [phone] Bon Gutierrez MD 111 [facility], Level 5 [place] [address] 09/10/2024 10:00 EDT Appointment Shaina Mejia 0 [place] [address] Scheduled Orders Name Type Priority [...] with and without IV contrast was performed. [id number] Impressions 11/18/2023 10:37 EDT Lesion #1: Segment [...] ongoing routine MRI surveillance for hepatocellular carcinoma. [id number] Narrative 11/18/2023 10:37 EDT MR ABDOMEN W [...] Localizer: No additional findings. Resulting Agency Comment [id number] Procedure Note Blake Fuentes MD - 11/18/2023 [...] is ongoing routine MRIsurveillance for hepatocellular carcinoma. [id number] Carlos A Escobedo PA-C IMRoger MRI ORDERABLES [...] malfunction. AJR Am J Roentgenol. 1996. May;168(2):467-72. [id number] Narrative 11/19/2023 13:29 EDT US ABDOMEN LIMITED WITH COMPLETE DUPLEX ??11/17/2023 1:41 PM SIGNS AND SYMPTOMS/COMMENTS: Cirrhosis COMPARISONS: Ultrasound abdomen from 10/10/2023 GRAYSCALE: TECHNIQUE: Grayscale ultrasound images of the liver were obtained. INDICATION FOR GRAYSCALE: Evaluate for structural abnormality Resulting Agency Comment [id number] Procedure Note Madelaine Francois MD - 11/19/2023 [...] intrahepaticportosystemic shunt malfunction. AJR Am J Roentgenol. 1996.May;168(2):467-46. [id number] Carlos A Escobedo PA-C G US ORDERABLES documented in this encounter Visit Diagnoses Diagnosis Cirrhosis (HCC-CMS)- Primary Cirrhosis of liver without mention of alcohol Cirrhosis (HCC-CMS) Cirrhosis of liver without mention of alcohol Cirrhosis (HCC-CMS) Cirrhosis of liver without mention of alcohol documented in this encounter Care Teams Photogrammetric Engineer Relationship Specialty Start Date End Date George Lou RPA [address] [facility] [place] [address] [place] [address] PCP - General Family Medicine - Primary Care 09/21/22 documented as of this encounter
--- OUTSIDE RECORDS SUMMARY | 2024-01-20 15:52 | XMS_ITS | Encounter Summary ---
Author Organization [facility] Address [address] [place] [address] Care Team Providers Care Human Resource Analyst Name Role Phone CarmineGeorge NORMA Primary Care Provider [phone] Reason for Visit * Reason Onset Date Comments Appointment Related 11/07/2023 Encounter Details Date Type Department Care Team (Late st Contact Info) Description 11/07/[address] [facility] Interventional Radiology - [address] [id number] Guicho Rosales MD [address] [place] [address] 1 [place] [address] Appointment Related Social History Tobacco [...] 11/16 scheduled visits Requesting return call to [phone] option 1 documented in this encounter Plan of Treatment Upcoming Encounters Date Type Department Care Team (Late st Contact Info) Description 01/23/2024 10:[address] [facility] General Surgery - [facility] [address] [place], [place] [address] Bon Gutierrez MD 111 [facility], Level 5 [place] [address] 09/10/2024 10:00 EDT Appointment Shaina Mejia [address] [place] [address] documented as of this encounter Visit Diagnoses Not on filedocumented in this encounter Care Teams Human Resource Analyst Relationship Specialty Start Date End Date George Lou RPA [address] [id number] PCP - General Family Medicine - Primary Care 09/21/22 documented as of this encounter
--- OUTSIDE RECORDS SUMMARY | 2024-01-20 15:52 | XMS_ITS | Encounter Summary ---
Author Organization [facility] Address [address] [place] [address] Care Team Providers Care Production Line Operator Name Role Phone Katia Blanco POULTRY SCIENTIST Primary Care Provider Reason for Visit * Reason Onset Date Comments Appointment Related 12/28/2019 Encounter Details Date Type Department Care Team (Late st Contact Info) Description 12/28/2019 Telephone [facility] Interventional Radiology - [address] [address] Guicho Rosales [address] [place] [address] Appointment Related Social History Tobacco Use Types [...] Info) Description 01/23/2024 10:00 EDT Office Visit [facility] General Surgery - [address] [id number] Bon Gutierrez MD [address] [place] [address], Level 5 [place] [address] 09/10/2024 10:00 EDT Appointment Shaina Bergeron [address] 816056 documented as of this encounter Visit Diagnoses Not on filedocumented in this encounter Care Teams Production Line Operator Relationship Specialty Start Date End Date Katia Blanco [place] [address] PCP - General 03/26/19 09/20/22 documented as of this encounter
--- OUTSIDE RECORDS SUMMARY | 2024-01-20 15:52 | XMS_ITS | Encounter Summary ---
Author Organization [facility] Address [address] [place] [address] Care Team Providers Care Manager Renewable Energy Name Role Phone Katia Blanco IMANI Primary Care Provider [phone] Reason for Visit * Reason Onset Date Comments Appointment Related 06/22/2021 Encounter Details Date Type Department Care Team (Late st Contact Info) Description 06/22/2021 Telephone [facility] Interventional Radiology - [address] 322031 Guicho Rosales MD [address] [place] [address] 1 [place] [address] Appointment Related Social History Tobacco [...] at 10:30am Requesting return phone call to [phone] for confirmation of this plan. documented in this encounter Plan of Treatment Upcoming Encounters Date Type Department Care Team (Late st Contact Info) Description 01/23/2024 10:00 EDT Office Visit [facility] General Surgery - [facility] [address] [place], [place] [address] Bon Gutierrez MD [address] [facility] [address] [facility], [facility] [place], [address] [place] [address] 09/10/2024 10:00 EDT Appointment Shaina Bergeron Ultrasound [address] [place], [place] [address]33[address] documented as of this encounter Visit Diagnoses Not on filedocumented in this encounter Care Teams Manager [employer]able Energy Relationship Specialty Start Date End Date Katia Blanco [place] [address] PCP - General 03/26/19 09/20/22 documented as of this encounter
--- OUTSIDE RECORDS SUMMARY | 2024-01-20 15:52 | XMS_ITS | Encounter Summary ---
Author Organization [facility] Address [address] [place] [address] Care Team Providers Care Anesthetist Name Role Phone George Lou NORMA Primary Care Provider [phone] Encounter Details Date Type Department Care Team (Late st Contact Info) Description 08/25/2023 Lab Requisition [facility] Pathology & Laboratory Medicine - [address] [address] Sari Yusuf, DO [address] [place], [place] [id number] Right upper quadrant pain Social History Tobacco [...] Visit [facility] General Surgery - [facility] [address] [place], [place] [address] Bon Gutierrez MD 111 [facility], Level 5 [place] [phone] 09/10/2024 10:00 EDT Appointment Shaina Mejia 0 [place], [place] [address] documented as of this encounter Procedures Procedure [...] management options, if applicable. 08/26/2023 14:21 EDT [facility] Final Diagnosis A. DUODENUM, BULB, [...] with no specific pathologic features. 08/26/2023 14:21 [facility] Attestation By the signature below, the attending physician certifies that they have 1) personally conducted a gross and/or microscopic examination of the described specimen(s), and/or personally interpreted the results of laboratory testing of the described specimen(s), and 2) personally rendered or confirmed the above diagnosis. 08/26/2023 14:21 [facility] at 1421 Clinical History Abdominal pain 08/26/2023 14:21 [facility] Gross Description A. Received in [...] E1. QUYNH DELEON(ASCP) 08/25/2023 9:57 08/26/2023 14:21 [facility] Performing Lab [facility] 14:21 [facility] Scanned Images 08/26/2023 14:21 [facility] Tissue ESOPHAGEAL STRUCTURE / Unknown [...] 8:11 EDT Sari Yusuf DO PATHOLOGY ORDERABLES [facility] [address] [place] [address] documented in this encounter Visit Diagnoses Diagnosis Right upper quadrant pain Abdominal pain, right upper quadrant documented in this encounter Care Teams Anesthetist Relationship Specialty Start Date End Date George Lou RPA [address] [place] [address] PCP - General Family Medicine - Primary Care 09/21/22 documented as of this encounter
--- OUTSIDE RECORDS SUMMARY | 2024-01-20 15:52 | XMS_ITS | Encounter Summary ---
Author Organization [facility] Address [address] [place] [address] Care Team Providers Care Metropolitan Editor Name Role Phone CarmineGeorge NORMA Primary Care Provider [phone] Reason for Referral * Radiology Services (Routine/Next Available) - Receiving Office to Obtain Authorization Specialty Diagnoses / Procedures Referred By Contac t Referred To Contact Procedures TUMOR BOARD RADIOLOGY CONSULT LIVER TUMOR BOARD RADIOLOGY CONSULT NON BREAST Filipe Sarmiento MD [address] [place] [phone] Referral ID Status Reason Start Date Expiration Date Visits Requested Visits Authorized [id number] Receiving Office to Obtain Authorization 11/25/2023 1 1 Reason for Visit * Radiology Services (Routine/Next Available) - Receiving Office to Obtain Authorization Specialty Diagnoses / Procedures Referred By Contac t Referred To Contact Procedures TUMOR BOARD RADIOLOGY CONSULT LIVER TUMOR BOARD RADIOLOGY CONSULT NON BREAST Filipe Sarmiento MD [address] [place] [phone] Referral ID Status Reason Start Date Expiration Date Visits Requested Visits Authorized [id number] Receiving Office to Obtain Authorization 11/25/2023 1 1 Encounter Details Date Type Department Care Team (Latest Contact Info) Description 11/25/2023 15:17 EDT - 11/25/2023 23:59 EDT Hospital Encounter [facility] Radiology - Main [address] [address] Discharge Disposition: Home or Self Care Social [...] daily. Obtaining through Patient Assistance Program ([employer]), approved on 05/31/19 x1 year. Phone number for PAP: [phone] semaglutide (OZEMPIC) subcutaneous pen Inject into the [...] Description 01/23/2024 10:00 EDT Office Visit [facility] General Surgery - [address] 338411 Bon Gutierrez MD 111 [facility], Level 5 [place] [phone] 09/10/2024 10:00 EDT Appointment Shaina Bergeron Ultrasound [address] [place], [place] [phone] documented as of this encounter Procedures Procedure [...] performed for the imaging exams listed above. [id number] Resulting Agency Comment [id number] Procedure Note Cole Leblanc MD - 12/08/2023 TUMOR BOARD IMAGING REVIEW Tumor board: Liver tumor board Date of tumor board: 12/07/2023 Indication: Liver lesions. Imaging studies reviewed: Abdominal MRI with and without contrast 11/17/2023 Comments: A focused interpretation for the purpose of tumor board/MDC discussion wasperformed for the imaging exams listed above. [id number] Filipe Sarmiento MD IMG CT ORDERABLES documented in this encounter Visit Diagnoses Not on filedocumented in this encounter Care Teams Metropolitan Editor Relationship Specialty Start Date End Date George Lou RPA [address] [place] [address] PCP - General Family Medicine - Primary Care 09/21/22 documented as of this encounter
--- OUTSIDE RECORDS SUMMARY | 2024-01-20 15:52 | XMS_ITS | Encounter Summary ---
Author Organization [facility] Address [address] [place] [address] Care Team Providers Care Change Manager Name Role Phone Katia Blanco IMANI Primary Care Provider [phone] Reason for Visit * Reason Onset Date Comments Appointment Related 07/07/2021 Encounter Details Date Type Department Care Team (Late st Contact Info) Description 07/07/2021 Telephone [facility] Interventional Radiology - [address] 510351 Guicho Rosales MD [address] [place] [address] 1 [address] Appointment Related Social History Tobacco Use [...] [facility] General Surgery - [facility] [address] [place], [place] 26[address] Bon Gutierrez MD 111 [facility], Level 5 [phone] 09/10/2024 10:00 EDT Appointment Shaina Mejia 0 [place] [address] documented as of this encounter Visit Diagnoses Not on filedocumented in this encounter Care Teams Change Manager Relationship Specialty Start Date End Date Katia Blanco FNP [address]yl [facility] [address] PCP - General 03/26/19 09/20/22 documented as of this encounter
--- OUTSIDE RECORDS SUMMARY | 2024-01-20 15:52 | XMS_ITS | Encounter Summary ---
Author Organization [facility] Address [address] [place] [address] Care Team Providers Care Geek Squad Manager Name Role Phone Katia Blanco IMANI Primary Care Provider [phone] Reason for Visit * Reason Onset Date Comments Appointment Related 03/18/2021 Encounter Details Date Type Department Care Team (Late st Contact Info) Description 03/18/2021 Telephone [facility] Interventional Radiology - [address] 151411 Guicho Rosales MD [address] [place] [address] 1 [place] [address] Appointment Related Social History Tobacco [...] [facility] General Surgery - [address] 077561 Bon Gutierrez MD 111 [facility], Level 5 [place] [address] 09/10/2024 10:00 EDT Appointment Shaina Mejia 0 [place] [address] documented as of this encounter Visit Diagnoses Not on filedocumented in this encounter Care Teams Geek Squad Manager Relationship Specialty Start Date End Date [place] [address] PCP - General 03/26/19 09/20/22 documented as of this encounter
--- OUTSIDE RECORDS SUMMARY | 2024-01-20 15:52 | XMS_ITS | Encounter Summary ---
Author Organization [facility] Address [address] [place] [address] Care Team Providers Care Binder And Box Builder Name Role Phone CarmineGeorge NORMA Primary Care Provider [phone] Reason for Visit * Reason Comments Follow-up Encounter Details Date Type Department Care Team (Late st Contact Info) Description 09/21/2022 11:00 EDT Office Visit [facility] Interventional Radiology - [address] 223941 Guicho Rosales MD [address] [place] [address], Level 1 [place] [address] Alcoholic cirrhosis of liver without [...] laxative. 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 He has been [...] Info) Description 01/23/2024 10:00 EDT Office Visit [facility] General Surgery - [facility] [address] [place], [place] [address] Bon Gutierrez MD 111 [facility], Level 5 [place] [phone] 09/10/2024 10:00 EDT Appointment Shaina Bergeron Ultrasound [address] [place] [address] documented as of this encounter Visit Diagnoses [...] 06/03/202209/21 added in this encounter Care Teams Binder And Box Builder Relationship Specialty Start Date End Date George Lou RPA [address] [place] [address] PCP - General Family Medicine - Primary Care 09/21/22 documented as of this encounter
--- OUTSIDE RECORDS SUMMARY | 2024-01-20 15:52 | XMS_ITS | Encounter Summary ---
Author Organization [facility] Address [address] [place] [address] Care Team Providers Care Bisque Kiln Placer Name Role Phone Katia Blanco IMANI Primary Care Provider [phone] Reason for Visit * Reason Onset Date Comments Follow-up 07/09/2021 Encounter Details Date Type Department Care Team (Late st Contact Info) Description 07/09/2021 Telephone [facility] Interventional Radiology - [facility] [address] [place] [address] Melissa Munroe, RN [address] [place] [address] Follow-up Social History Tobacco Use Types Packs/Day [...] Visit [facility] General Surgery - [address] [phone] Bon Gutierrez MD 111 [facility], Level 5 [place] [phone] 09/10/2024 10:00 EDT Appointment Shaina Bergeron [place] [address]4540 [place], [place] [address] documented as of this encounter Visit Diagnoses Not on filedocumented in this encounter Care Teams Bisque Kiln Placer Relationship Specialty Start Date End Date Katia Blanco FNP Cheryl [place] [address] PCP - General 03/26/19 09/20/22 documented as of this encounter
--- OUTSIDE RECORDS SUMMARY | 2024-01-20 15:52 | XMS_ITS | Encounter Summary ---
Author Organization [facility] Address [address] [place] [address] Care Team Providers Care Routing Machine Operator Name Role Phone George Lou NORMA Primary Care Provider [phone] Reason for Referral * Radiology Services (Routine/Next Available) - Authorized Specialty Diagnoses / Procedures Referred By Contac t Referred To Contact Radiology Diagnoses Cirrhosis (HCC-CMS) Procedures MR ABDOMEN W WO CONTRAST Norbert Bennett PA-C [address] [place] [address] [facility] Referral ID Status Reason Start Date Expiration Date V isits Requested Visits Authorized [id number] Authorized 09/21/2023 12/20/2023 1 1 Reason for Visit * Radiology Services (Routine/Next Available) - Authorized Specialty Diagnoses / Procedures Referred By Contac t Referred To Contact Radiology Diagnoses Cirrhosis (HCC-CMS) Procedures MR ABDOMEN W WO CONTRAST Norbert Bennett PA-C [address] [address] [facility] Referral ID Status Reason Start Date Expiration Date V isits Requested Visits Authorized [id number] Authorized 09/21/2023 12/20/2023 1 1 Encounter Details Date Type Department Care Team (Latest Contact Info) Description 11/17/2023 15:07 EDT - 11/17/2023 23:59 EDT Hospital Encounter [facility] [address] [place] [address] Cirrhosis ([facility]) Discharge Disposition: Home or Self Care Social [...] times daily. Obtaining through Patient Assistance Program ([employer]), approved on 05/31/19 x1 year. Phone number for PAP: [phone] semaglutide (OZEMPIC) subcutaneous pen Inject into the [...] [facility] [address] [place], [place] [phone] Bon Gutierrez MD 111 [facility], [facility], Level 5 [place] [address] 09/10/2024 10:00 EDT Appointment Shaina Bergeron Ultrasound [address] [place] [address] documented as of this encounter [...] with and without IV contrast was performed. [id number] Impressions 11/18/2023 10:37 EDT Lesion #1: Segment [...] ongoing routine MRI surveillance for hepatocellular carcinoma. [id number] Narrative 11/18/2023 10:37 EDT MR ABDOMEN W [...] Localizer: No additional findings. Resulting Agency Comment [id number] Procedure Note Blake Fuentes MD - 11/18/2023 [...] is ongoing routine MRIsurveillance for hepatocellular carcinoma. [id number] Norbert Bennett PA-C [facility] MRI ORDERABLES documented in this encounter Visit [...] 11/2023 documented in this encounter Care Teams Routing Machine Operator Relationship Specialty Start Date End Date George Lou RPA [address] [place] [address] PCP - General Family Medicine - Primary Care 09/21/22 documented as of this encounter
--- OUTSIDE RECORDS SUMMARY | 2024-01-20 15:52 | XMS_ITS | Encounter Summary ---
Author Organization [facility] Address [address] [place] [address] Care Team Providers Care Epoxy Specialist Name Role Phone Katia Blanco IMANI Primary Care Provider [phone] Reason for Visit * Vascular Lab (Routine/Next Available) - Closed Specialty Diagnoses / Procedures [facility] Referred To Contact Diagnoses Cirrhosis (HCC-CMS) Procedures US LIVER/ABDOMEN VISCERAL DOPPLER US HEPATOPORTAL VEIN DUPLEX Guicho Rosales MD [address] [place] [address] 1 [place] [address] Referral ID Status Reason Start Date Expiration Date Visits Re quested Visits Authorized [id number] Closed 12/22/2020 1 1 Encounter Details Date Type Department Care Team (Latest Contact Info) Description 09/08/2021 7:08 EDT - 09/08/2021 23:59 EDT Hospital Encounter [facility] [place] [address] [place] [address] Cirrhosis (HCC-CMS) (HCC) (HCC-CMS) Discharge Disposition: Home [...] times daily. Obtaining through Patient Assistance Program ([facility]), approved on 05/31/19 x1 year. Phone number for PAP: [phone] valsartan (DIOVAN) 80 mg tablet Take 160 [...] Visit [facility] General Surgery - [address] [address] Bon Gutierrez MD [address] [place] [address], Level 5 [place] [address] 09/10/2024 10:00 EDT Appointment Shaina Bergeron Ultrasound [address] [place] [address] documented as of this encounter Procedures Procedure [...] alcohol documented in this encounter Care Teams Epoxy Specialist Relationship Specialty Start Date End Date Katia [place] [address] PCP - General 03/26/19 09/20/22 documented as of this encounter
--- OUTSIDE RECORDS SUMMARY | 2024-01-20 15:52 | XMS_ITS | Encounter Summary ---
Author Organization [facility] Address [address] [place] [address] Care Team Providers Care Seam Closer Name Role Phone Katia Blanco IMANI Primary Care Provider [phone] Reason for Visit * Reason Onset Date Comments Appointment Related 07/10/2021 Encounter Details Date Type Department Care Team (Late st Contact Info) Description 07/10/2021 Telephone [facility] Interventional Radiology - [address] 779[address] Guicho Rosales MD [address] [place] [address] 1 [place] [address] Appointment Related Social History Tobacco [...] radiology to schedule for this day specifically ([facility]) I will send letter to patient with updated ultrasound and office visit times with Dr. Rosales for 09/08/21 documented in this encounter Plan of Treatment Upcoming Encounters Date Type Department Care Team (Late st Contact Info) Description 01/23/2024 10:00 EDT Office Visit [facility] General Surgery - [address] 963[address] Bon Gutierrez MD 111 [facility], Level 5 [place] [address] 09/10/2024 10:00 EDT Appointment Shaina Bergeron Ultrasound 0 [place] [address] documented as of this encounter Visit Diagnoses Not on filedocumented in this encounter Care Teams Seam Closer Relationship Specialty Start Date End Date Katia [place] [address] PCP - General 03/26/19 09/20/22 documented as of this encounter
--- OUTSIDE RECORDS SUMMARY | 2024-01-20 15:53 | XMS_ITS | Encounter Summary ---
Author Organization [facility] Address [address] [place] [address] Care Team Providers Care Graphic Art Technician Name Role Phone Katia BlancoP Primary Care Provider [phone] Encounter Details Date Type Department Care Team ([facility] st Contact Info) Description 05/16/2019 Telephone [facility] Gastroenterology - [address] [id number] Jacob Kamara [facility] 1 [place], [place] [address] Social History Tobacco Use Types Packs/Day Years [...] rifaximin - states it is [facility] in [place]. Patient states he does not have prescription insurance. Called pharmacy, would be $650/month. Patient may be eligible for [employer] Patient Assistance Program (application available at: [email or web address]). Spoke to patient. Will mail application to him to complete and requested he mail it back as soon as possible. Will submit completed application once patient portion is received. Jacob Kamara, PharmD Pharmacist Clinician - Gastroenterology/Hepatology 05/16/2019 documented in this encounter Plan of Treatment Upcoming Encounters Date Type Department Care Team (Late st Contact Info) Description 01/23/2024 10:00 EDT Office Visit [facility] General Surgery - [address] [address] Bon Gutierrez MD [address] [place] [address], Level 5 [place] [address] 09/10/2024 10:00 EDT Appointment Shaina Mejia [address] [place] [phone] documented as of this encounter Visit Diagnoses [...] times daily. Obtaining through Patient Assistance Program ([facility]), approved on 05/31/19 x1 year. Phone number for PAP: [phone] added in this encounter Care Teams Graphic Art Technician Relationship Specialty Start Date End Date Katia Blanco FNP [facility] [place] [address] PCP - General 03/26/19 09/20/22 documented as of this encounter
--- OUTSIDE RECORDS SUMMARY | 2024-01-20 15:53 | XMS_ITS | Encounter Summary ---
Author Organization [facility] Address [address] [place] [address] Care Team Providers Care Apparel Embroidery Digitizer Name Role Phone Laurie Wiggins MD Primary Care Provider [phone] Encounter Details Date Type Department Care Team (Late st Contact Info) Description 02/22/2019 Orders Only [facility] Interventional Radiology - [address] [id number] Guicho Rosales MD [address] [place] [address], Level 1 [place] [phone] Alcoholic cirrhosis of liver without ascites (HCC-CMS) [...] 10:00 EDT Office Visit [facility] General Surgery - [address] 815221 Bon Gutierrez MD 111 [facility], Level 5 [place] [phone] 09/10/2024 10:00 EDT Appointment Shaina Mejia [address] [place], [place] [phone] documented as of this encounter Visit Diagnoses Diagnosis Alcoholic cirrhosis of liver without ascites (HCC-CMS)- Primary Alcoholic cirrhosis of liver documented in this encounter Care Teams Apparel Embroidery Digitizer Relationship Specialty Start Date End Date Laurie Wiggins MD PCP - General 05/08/18 03/25/19 documented as of this encounter
--- OUTSIDE RECORDS SUMMARY | 2024-01-20 15:53 | XMS_ITS | Encounter Summary ---
Author Organization [facility] Address [address] [place] [address] Care Team Providers Care Computer Support Analyst Name Role Phone Katia Blanco COW BUYER Primary Care Provider [phone] Reason for Referral * Consult (Urgent) - Specialty Report Received Specialty Diagnoses / Procedures Referred By Contact Referred To Contact Gastroenterology and Hepatology Diagnoses Alcoholic cirrhosis of liver without ascites (HCC-CMS) Guicho Rosales MD [address] [place] [phone] Brody Duran MD PhD [address] [place] [phone] Referral ID Status Reason Start Date Expiration Date Visits Requested Visits Authorized [id number] Specialty Report Received Specialty Services Required 04/24/2019 [...] Info) Description 04/24/2019 10:00 EST Office Visit [facility] Interventional Radiology - [address] [address] Guicho Rosales MD [address] [place] [address] Level 1 [place] [phone] Alcoholic cirrhosis of liver without ascites (HCC-CMS) [...] [facility] General Surgery - [address] 687441 Bon Gutierrez MD 111 [facility], [facility], Level 5 [place] [address] 09/10/2024 10:00 EDT Appointment Shaina Bergeron [facility] [address] [place] [address] Scheduled Referrals Name Type Priority Associated Diagnoses [...] mouth. added in this encounter Care Teams Computer Support Analyst Relationship Specialty Start Date End Date Katia Blanco FNP Cheryl [place] [address] PCP - General 03/26/19 09/20/22 documented as of this encounter
--- OUTSIDE RECORDS SUMMARY | 2024-01-20 15:53 | XMS_ITS | Encounter Summary ---
Author Organization [facility] Address [address] [place] [address] Care Team Providers Care Assembler Bonding Name Role Phone Laurie Wiggins MD Primary Care Provider [phone] Encounter Details Date Type Department Care Team (Late st Contact Info) Description 02/22/2019 Orders Only [facility] Interventional Radiology - [address] [address] Guicho Rosales MD [address] [place] [address], Level 1 [place] [phone] Social History Tobacco Use Types Packs/Day Years [...] [facility] General Surgery - [address] [phone] Bon Gutierrez MD 111 [facility], Level 5 [place] [address] 09/10/2024 10:00 EDT Appointment Shaina Bergeron [address] [phone] documented as of this encounter Visit Diagnoses Not on filedocumented in this encounter Care Teams Assembler Bonding Relationship Specialty Start Date End Date Laurie Wiggins MD PCP - General 05/08/18 03/25/19 documented as of this encounter
--- OUTSIDE RECORDS SUMMARY | 2024-01-20 15:53 | XMS_ITS | Encounter Summary ---
Author Organization [facility] Address [address] [place] [address] Care Team Providers Care Continuous Mining Operator Name Role Phone Katia Blanco IMANI Primary Care Provider [phone] Reason for Visit * Reason Onset Date Comments Appointment Related 04/06/2019 Encounter Details Date Type Department Care Team (Late st Contact Info) Description 04/06/2019 Telephone [facility] Interventional Radiology - [address] [phone] Guicho Rosales MD [address] [place] [address] 1 [place] [address] Appointment Related Social History Tobacco [...] [facility] General Surgery - [address] [id number] Bon Gutierrez MD [address] [place] [address], [facility], Level 5 [place] [address] 09/10/2024 10:00 EDT Appointment Shaina Bergeron Ultrasound [address] [place] [address] documented as of this encounter Visit Diagnoses Not on filedocumented in this encounter Care Teams Continuous Mining Operator Relationship Specialty Start Date End Date Katia [place] [address] PCP - General 03/26/19 09/20/22 documented as of this encounter
--- OUTSIDE RECORDS SUMMARY | 2024-01-20 15:53 | XMS_ITS | Encounter Summary ---
Author Organization [facility] Address [address] [place] [address] Care Team Providers Care Engineer Of System Development Name Role Phone Katia Blanco Primary Care Provider [phone] Encounter Details Date Type Department Care Team (Late st Contact Info) Description 05/16/2019 Orders Only [facility] Gastroenterology - [address] [address] Brody Duran MD PhD 111 [facility], Level 5 [place] [address] Hepatic cirrhosis, unspecified hepatic cirrhosis [...] Office Visit [facility] General Surgery - [address] [phone] Bon Gutierrez MD 111 [facility], Level 5 [place] [phone] 09/10/2024 10:00 EDT Appointment Shaina Mejia [address] [place] [phone] documented as of this encounter Visit Diagnoses Diagnosis Hepatic cirrhosis, unspecified hepatic cirrhosis type, unspecified whether ascites present (HCC-CMS)- Primary Encephalopathy, hepatic (HCC-CMS) Hepatic encephalopathy documented in this encounter Care Teams Engineer Of System Development Relationship Specialty Start Date End Date Katia Blanco FNP Cheryl [place] [address] PCP - General 03/26/19 09/20/22 documented as of this encounter
--- OUTSIDE RECORDS SUMMARY | 2024-01-20 15:53 | XMS_ITS | Encounter Summary ---
Author Organization [facility] Address [address] [place] [address] Care Team Providers Care Maintenance And Custodian Supervisor Name Role Phone Laurie Wiggins MD Primary Care Provider [phone] Encounter Details Date Type Department Care Team (Late st Contact Info) Description 02/03/2019 Results Only Imaging [facility] [phone] Unknown, Provider, Social History Tobacco Use Types [...] [facility] General Surgery - [address] 743191 Bon Gutierrez MD [address] [place] [address], Level [address] [place] [phone] 09/10/2024 10:00 EDT Appointment Shaina Bergeron Ultrasound [address] [place] [address] Pending Results Name Type Priority Associated Diagnoses Date /Time OUTSIDE IMAGES - US BODY Imaging 02/03/2019 12:23 EDT documented as of this encounter Visit Diagnoses Not on filedocumented in this encounter Care Teams Maintenance And Custodian Supervisor Relationship Specialty Start Date End Date Laurie Wiggins MD PCP - General 05/08/18 03/25/19 documented as of this encounter
--- OUTSIDE RECORDS SUMMARY | 2024-01-20 15:53 | XMS_ITS | Encounter Summary ---
Author Organization [facility] Address [address] [place] [address] Care Team Providers Care Migratory Farm Hand Name Role Phone Laurie Wiggins MD Primary Care Provider [phone] Katia Blanco Primary Care Provider [phone] Reason for Visit * Reason Onset Date Comments Appointment Related 10/03/2018 Encounter Details Date Type Department Care Team (Late st Contact Info) Description 10/03/2018 Telephone [facility] Adult [facility]rology - [facility] [address] [place] [address] Marianna Walker MD [address] [place] [phone] Appointment Related Social History Tobacco Use Types [...] 01/23/2024 10:00 EDT Office Visit [facility] General Surgery - [address] [address] Bon Gutierrez MD 111 [facility], Level 5 [place] [phone] 09/10/2024 10:00 EDT Appointment Shaina Bergeron [place] [address] [place], [place] [address] documented as of this encounter Visit Diagnoses Not on filedocumented in this encounter Care Teams Migratory Farm Hand Relationship Specialty Start Date End Date Laurie Wiggins MD PCP - General 05/08/18 03/25/19 Katia Blanco FNP [facility] [place] [address] PCP - General 03/26/19 09/20/22 documented as of this encounter
--- OUTSIDE RECORDS SUMMARY | 2024-01-20 15:53 | XMS_ITS | Encounter Summary ---
Author Organization [facility] Address [address] [place] [address] Care Team Providers Care Certified Ophthalmic Technician Name Role Phone Katia Blanco Primary Care Provider [phone] Encounter Details Date Type Department Care Team (Late st Contact Info) Description 05/15/2019 15:00 EST Phlebotomy Only [facility] 2 Phlebotomy [address] [place] [address] Farmworker Fruit, Acc Phlebotomy Hepatic cirrhosis, unspecified hepatic cirrhosis [...] Office Visit [facility] General Surgery - [facility] [address] [place], [place] [phone] Bon Gutierrez MD 111 [facility], Level 5 [place] [phone] 09/10/2024 10:00 EDT Appointment Shaina Bergeron Ultrasound [address] [place] [phone] documented as of this encounter Procedures Procedure [...] 0.66 - 1.10 mcg/mL 05/16/2019 15:58 EST [facility] Comment: ADDITIONAL INFORMATION This test was developed and its performance characteristics determined by [facility] in a manner consistent with CLIA requirements. This test has not been cleared or approved by the U.S. Food and Drug Administration. Test Performed by: [facility] [address] [place] [address] Technicians And Trades Workers: Kojo Madison M.D. Ph.D.; CLIA# [id number] Blood VENOUS BLOOD / Unknown Venipuncture / Unknown 05/15/2019 14:57 EST 05/15/2019 15:24 EST Brody Duran MD PhD CHEMISTRY & BLO OD GAS ORDERABLES Performing Organization Address [facility] Co de Phone Number [facility] [address] [place] [address] * (ABNORMAL) PROTIME (05/15/2019 14:57 EST) Pathologist [facility] I.N.R. 1.2(H) 0.9 - 1.1 Ratio 05/15/2019 15:50 EST [facility] Pro Time 14.2(H) 10.3 - 13.4 secs 05/15/2019 15:50 EST [facility] Blood VENOUS BLOOD / Unknown Venipuncture / Unknown 05/15/2019 14:57 EST 05/15/2019 15:24 EST Narrative [facility] - 05/15/2019 15:50 EST Moderate Intensity Coumadin INR = 2.0-3.0 Adjustments in anticoagulant therapy dose should be based on the INR and NOT on the Protime. Brody Duran MD PhD HEMATOLOGY & PF 4 ORDERABLES Performing Organization Address City/[facility]/ZIP Co de Phone Number [facility] [address] [place] [address] * (ABNORMAL) COMPLETE BLOOD COUNT (05/15/2019 14:57 EST) WBC 3.38(L) 4.00 - 10.40 K/cmm 05/15/2019 15:34 [facility] RBC 4.30(L) 4.36 - 5.78 M/cmm 05/15/2019 15:34 [facility] Hemoglobin 11.3(L) 13.8 - 17.3 gm/dL 05/15/2019 15:34 [facility] HCT 35.2(L) 39.5 - 50.2 % 05/15/2019 15:34 [facility] MCV 82 81 - 95 fl 05/15/2019 15:34 [facility] MCH 26.3(L) 27.6 - 33.0 pg 05/15/2019 15:34 [facility] MCHC 32.1(L) 32.8 - 36.4 gm/dL 05/15/2019 15:34 [facility] RDW-CV 15.3(H) <14.2 % 05/15/2019 15:34 [facility] RDW-SD 45.0 <46.0 fl 05/15/2019 15:34 [facility] PLT 137(L) 141 - 377 K/cmm 05/15/2019 15:34 [facility] MPV 8.8(L) 9.5 - 12.7 fl 05/15/2019 15:34 [facility] Blood VENOUS BLOOD / Unknown Venipuncture / Unknown 05/15/2019 14:57 EST 05/15/2019 15:24 EST Brody Duran MD PhD HEMATOLOGY & PF 4 ORDERABLES [facility] [address] [place] [address] * (ABNORMAL) COMPREHENSIVE METABOLIC PANEL (CMP) (05/15/2019 14:57 EST) Pathologist [facility] Sodium 141 136 - 145 mEq/L 05/15/2019 15:53 [facility] Potassium 4.4 3.5 - 5.0 mEq/L 05/15/2019 15:53 [facility] Chloride 108 96 - 110 mEq/L 05/15/2019 15:53 [facility] CO2 Total 25 22 - 32 mEq/L 05/15/2019 15:53 [facility] Glucose 140(H) 70 - 100 mg/dL 05/15/2019 15:53 [facility] BUN 16 10 - 26 mg/dL 05/15/2019 15:53 [facility] Creatinine 0.82 0.66 - 1.25 mg/dL 05/15/2019 15:53 [facility] eGFR 93 >60 mL/min/1.7 3m2 05/15/2019 15:53 [facility] Comment:eGFR calculated crystal mclaughlin CKD-EPI equation for non- Americans. Multiply eGFR by 1.16 for patients. Total Protein 6.6 6.3 - 8.2 g/dL 05/15/2019 15:53 [facility] Albumin 3.7 3.4 - 4.9 g/dL 05/15/2019 15:53 [facility] Alkaline Phosphatase 75 38 - 126 U/L 05/15/2019 15:53 [facility] AST 34 15 - 46 U/L 05/15/2019 15:53 [facility] ALT 27 <50 U/L 05/15/2019 15:53 [facility] Bilirubin, Total 0.9 <1.4 mg/dL 05/15/19 20 15:53 [facility] Calcium 9.4 8.5 - 10.5 mg/dL 05/15/2019 15:53 [facility] Calculated Calcium 9.6 8.5 - 10.5 mg/dL 05/15/2019 15:53 [facility] Blood VENOUS BLOOD / Unknown Venipuncture / Unknown 05/15/2019 14:57 EST 05/15/2019 15:25 [facility] - 05/15/2019 15:53 EST 1 Brody Duran MD PhD CHEMISTRY & BLO OD GAS ORDERABLES [facility] [address] [place] [address] documented in this encounter Visit Diagnoses Diagnosis Hepatic cirrhosis, unspecified hepatic cirrhosis type, unspecified whether ascites present (HCC-CMS) Encephalopathy, hepatic (HCC-CMS) Hepatic encephalopathy documented in this encounter Care Teams Certified Ophthalmic Technician Relationship Specialty Start Date End Date Katia Blanco [place] [address] PCP - General 03/26/19 09/20/22 documented as of this encounter
--- OUTSIDE RECORDS SUMMARY | 2024-01-20 15:53 | XMS_ITS | Encounter Summary ---
Author Organization [facility] Address [address] [place] [address] Care Team Providers Care Mold Filler And Drainer Name Role Phone Laurie Wiggins MD Primary Care Provider [phone] Encounter Details Date Type Department Care Team (Late st Contact Info) Description 02/21/2019 Orders Only [facility] Interventional Radiology - [address] [address] Guicho Rosales MD [address] [place] [address], Level [address] [place] [phone] Social History Tobacco Use Types Packs/Day Years [...] [facility] General Surgery - [address] [phone] Bon Gutierrez MD [address] [facility], Level [address] [place] [address] 09/10/2024 10:00 EDT Appointment Shaina Bergeron [address] [phone] documented as of this encounter Visit Diagnoses Not on filedocumented in this encounter Care Teams Mold Filler And Drainer Relationship Specialty Start Date End Date Laurie Wiggins MD PCP - General 05/08/18 03/25/19 documented as of this encounter
--- OUTSIDE RECORDS SUMMARY | 2024-01-20 15:53 | XMS_ITS | Encounter Summary ---
Author Organization [facility] Address [address] [place] [address] Care Team Providers Care Hide Cooking Operator Name Role Phone Laurie Wiggins MD Primary Care Provider [phone] Reason for Referral * Consult (Routine) - Authorization Not Required Specialty Diagnoses / Procedures Referred By Contac t Referred To Contact Neurology Diagnoses Other migraine with status migrainosus, not intractable Marianna Walker MD [address] [place] [address] Marianna Walker MD [address] [place] [address] Referral ID Status Reason Start Date Expiration Date Visits Requested Visits Authorized [id number] Authorization Not Required Specialty Services Required 9 1 1 Question Answer Reason for Request: follow up Expected Discharge Date (Inpatient Only): 08/31/2018 Encounter Details Date Type Department Care Team (Late st Contact Info) Description 08/09/2018 16:54 EDT - 09/12/2018 10:34 EDT Hospital Encounter [facility] Inpatient Psychiatry Unit [address], [place] [id number] Sonali Mills MD [address] [facility], [place], [address] [place] [address] Depression, unspecified depression type (Primary Dx); Substance abuse ([facility]); Suicidal ideation; Other migraine with status [...] * Sonali Mills MD, MD - 08/17/2018 5905 EDT INPATIENT PSYCHIATRIC DISCHARGE SUMMARY Patient Name: [...] to meeting his current girlfriend who is Italian and drank alcohol/wine every day. On meeting [...] DUI yesterday. He spent the night in nursing home and was released this morning when hewas faced with the prospect of walking 40 miles to his home as he has no money. He describes this as the last straw and thinking that he just wanted to . He mentioned this to the social services manager at the police station who then brought [...] Hospital Course: The patient was admitted to [address]ry unit, on a voluntary basis. [...] alternatives. In c onjunction with his social services manager, he got his disability benefits back (it was an error), moved hisapartment, paid his bills, and had the bank repossess his car since he won't need it once he loses his license. He spoke to the court and understands a brief nursing home stay is more than likely. As each [...] normal. GI: He was continued on his FASHION EDITOR losartan 50 mg daily for HTN and [...] referral to inpatient substance use rehabilitation program [facility]. He was able to advocate for [...] treatment. Judgement ;good. CiaraAlonzo Home Medication Instructions MIRELLA:[id number] Printed on:09/13/18 8672 Medication Information citalopram (CELEXA) 10 mg tablet [...] than one antipsychotic medication: N/A Disposition: [facility] Follow-up Referrals and Appointments: Amb Consult/Follow Up Neurology Reason for Request: follow up Expected Discharge Date (Inpatient Only): 08/31/2018 Alonzo will discharge to [facility] and receive substance use disorder treatment, intake at 09/12/18 @1pm. After completing the program he will follow up with [facility] who will be expecting to hear from him. [address] [address] [facility] Mental Health, Substance Abuse, and Developmental Services Mental Health Crisis Services [facility]. [place]: [phone] AVS completed by: CISCO Guillen 09/12/18 please call with any questions [phone] NORBERTO Miranda PGY2 Deputy Sheriff Chief Attending Addendum: I saw and evaluated the patient on the day of discharge prior to departure. Discharge and follow upplan was reviewed with the patient. I agree with the summary and discharge plan as documented in the resident's discharge summary (with edits in blue text). Total time I spent on discharge: 60 minutes Sonali Mills MD Attending Psychiatrist [facility] Pager [phone] documented in this encounter Discharge Instructions * Appointments* Venkata Telles LICSW - 09/12/2018 8:40 EDT Alonzo will discharge to [facility] and receive substance use disorder treatment, intake at 09/12/18 @1pm. After completing the program he will follow up with [facility] who will be expecting to hear from him. [address] [address] [facility] Office Mental Health, Substance Abuse, and Developmental Services Mental Health Crisis Services [facility]: [phone] AVS completed by: CISCO Guillen 09/12/18 please call with any questions [phone] documented in this encounter Medications at Time [...] discharge. JIMENEZ explained follow up plan with [facility]. Alonzo is future oriented and looking [...] occurs Adrian Rivas MD Department of Psychiatry [facility] 09/12/2018 6:55 * Sharon Flores RN - 09/12/2018 2520 EDT Post Fall BELEM Note Data: Patient [...] cab for 10:30am tomorrow to take himto [facility]. Alonzo will pick pack worker his medication here. JIMENEZ left a message for [facility] regarding Alonzo letting them know he would follow up with after [facility]. CISCO Guillen * Sonali Mills MD, [...] well-rested. Is anxious about the unknown of [employer] but feels he can handle it, and feels sad about leaving all the good people here. He has arranged a pass this AM with a former patient to go purchase needed items at [facility]. He denies SI and believes he can [...] next steps but without SI or pessimism. Alonoz Urbina meets criteria for acute level of [...] multidisciplinary team. SONALI MILLS MD Attending Psychiatrist [facility] Pager [phone] * Laura Solo MD, MD - 09/10/2018 1582 EDT 09/10/2018 ATTENDING BLEACHER PULP NOTE: PROBLEM: Suicidal ideation HOSPITAL DAY: LOS: 32 days INTERIM HISTORY: Events of past 24h reviewed with nursing staff and chart reviewed. Angry at activity therapist and Dr. Brewer re: discussion about boundaries in groups with another patient (MH). Slept [address] [facility] House discharge planned for Tuesday. Looking forward to this. Wants a pass tomorrow to go to [facility] with a friend to make purchases to [...] treatment plan. Laura Solo MD Attending Psychiatrist composite bond technician * Laura Solo MD, MD - 09/09/2018 0745 EDT 09/09/2018 ATTENDING BLEACHER PULP NOTE: PROBLEM: Suicidal ideation HOSPITAL DAY: LOS: 31 days INTERIM HISTORY: Events of past 24h reviewed with nursing staff and chart reviewed. Social. In milieu. [facility] discharge planned for Tuesday. He is [...] treatment plan. Laura Solo MD Attending Psychiatrist composite bond technician * Venkata Telles LICSW - 09/08/2018 1415 EDT Social Work Progress Note Intervention/Service: Community referral, Coordination of care and Discharge planning JIMENEZ met with Alonzo today and talked about discharge on 09/12/18. JIMENEZ explained Alonzo would need to discharge by 11am on Tuesday to get to his 1pm intake at [facility]. Alonzo will complete [facility] with a plan to follow up with [facility] upon discharge. CISCO Guillen * Sonali [...] group. Met .with Alonzo this AM with nursing unit manager in the room- he invited the student [...] that he will have a bed at [facility] early next week. He continues to [...] per multidisciplinary team rounds- awaiting placement at [facility]. NORBERTO Miranda 09/08/2018 8:45 PGY2 Deputy Sheriff Chief Attending Attestation: I saw and evaluated the [...] multidisciplinary team. SONALI MILLS MD Attending Psychiatrist [facility] Pager [phone] * Sonali Mills MD, MD - 09/07/2018 [...] Fingerstick 212 (H) 70 - 100 mg/dl Band Bias Machine Operator ID [id number] HEMOGLOBIN A1C Collection Time: 09/07/18 6:44 Result [...] reality of needing to spend time in nursing home post- [facility] is kicking in. Alonzo [...] per multidisciplinary team rounds- awaiting placement at [facility]. NORBERTO Miranda 09/07/2018 9:16 PGY2 Deputy Sheriff Chief Attending Attestation: I saw and evaluated the [...] multidisciplinary team. SONALI MILLS MD Attending Psychiatrist [facility] Pager [phone] * Sonali Mills MD, MD - 09/06/2018 [...] was being taken away. When working at [employer] did happen when it was very busy and stressful I.e. In the context of anxiety. Continues to endorse frustration about ongoing difficulty with speech. Also endorses hope that he will be able to be discharged to [facility] despite recent developments. Did discuss code [...] JIMENEZ to provide list of psychiatrist in [facility]- trauma focused therapy . GI consult placed [...] of aphasia may hinder his placement at [facility]- However is hopeful that since we [...] per multidisciplinary team rounds- awaiting placement at [facility]. NORBERTO Miranda 09/06/2018 11:10 PGY2 Deputy Sheriff Chief Attending Attestation: I saw and evaluated the [...] multidisciplinary team. SONALI MILLS MD Attending Psychiatrist [facility] Pager [phone] * Venkata Telles LICSW - 09/06/2018 0837 [...] to reduce his antidepressant. JIMENEZ spoke with [facility] and Alonzo is on the wait [...] w/ some anxiety about future (going to nursing home, etc.). Insight is good. Judgement is good. [...] per multidisciplinary team rounds- awaiting placement at [facility]. Sonali Mills MD 09/05/2018 22:09 Attending Attestation: I saw and evaluated the patient today. Treatment plan reviewed with the patient and team. Total time spent directly with patient was 35 minutes of which 20 minutes was spent in counseling (re:symptoms and treatment plan as in note above) and/or in coordination of care with the multidisciplinary team. SONALI MILLS MD Attending Psychiatrist [facility] Pager [phone] * Gabrielle Lynch MD, MD - 09/04/2018 1837 EDT 09/04/2018 ATTENDING BLEACHER PULP NOTE: CHIEF COMPLAINT: Depression he has been [...] the morning Gabrielle Lynch MD Attending Psychiatrist composite bond technician * Adrian Rivas MD - 09/04/2018 1711 [...] take place as quickly as possible. Adrian Rivsa MD PGY1 - Psychiatry Pager [phone] * Gera Beckman MD, MD - 09/03/2018 0932 EDT 09/03/2018 ATTENDING BLEACHER PULP NOTE: CHIEF COMPLAINT: Suicidality HOSPITAL DAY: LOS: [...] as needed Gera Beckman MD Attending Psychiatrist composite bond technician * Gera Beckman MD, MD - 09/02/2018 1240 EDT 09/02/2018 ATTENDING BLEACHER PULP NOTE: CHIEF COMPLAINT: Suicidality HOSPITAL DAY: LOS: [...] MSE: Casually dressed, friendly, attentive. Recognizes this pattern chart writer. Good eye contact. Speech fluent. Occasional thought [...] as needed Gera Beckman MD Attending Psychiatrist composite bond technician * Marielle Stephens RN - 09/02/2018 0643 [...] with Alonzo this morning and called his sales representative publications with him. The sales representative publications was outof the office so we left a message requesting a return call. Alonzo stated he was having a hard day and was really tired today due to checks. Should have a decision on whether or not [facility] will accept him today. CISCO Guillen [...] per multidisciplinary team rounds- awaiting placement at [facility]. NORBERTO Miranda 09/01/2018 9:13 PGY2 Deputy Sheriff Chief Attending Attestation: I saw and evaluated the [...] multidisciplinary team. SONALI MILLS MD Attending Psychiatrist [facility] Pager [phone] * Venkata Telles LICSW - 08/31/2018 1532 EDT Social Work Progress Note Intervention/Service: Discharge planning JIMENEZ met with Alonzo and sat with him through his phone screening with [facility]. The next step in the process is for the Clinical Coating And Baking Operator to review the information, they will have an answer forJames tomorrow. Alonzo asked if JIMENEZ would assist him with calling his sales representative publications tomorrow. JIMENEZ made a plan to meet with Alonzo at 8:30am. CISCO Guillen * Sonali Mills MD, MD - 08/31/2018 0839 EDT Inpatient Psychiatry Daily Progress Note Date [...] denies Reports having a phone meeting with [facility] this afternoon at 1 p.m. Met [...] the work that he does when in [facility] - how to establish a realistic [...] go to 5- 10 AA meetings in [facility] hoping to find a male sponsor [...] CBT while he is awaiting placement at [facility].- likely next week. Alonzo Urbina meets [...] per multidisciplinary team rounds- awaiting placement at [facility]. NORBERTO Miranda 08/31/2018 8:52 PGY2 Deputy Sheriff Chief Attending Attestation: I saw and evaluated the [...] multidisciplinary team. SONALI MILLS MD Attending Psychiatrist [facility] Pager [phone] * Sonali Mills MD, MD - 08/30/2018 1126 EDT Inpatient Psychiatry Daily Progress Note Date [...] team rounds. NORBERTO Miranda 08/30/2018 16:52 PGY2 Deputy Sheriff Chief Attending Attestation: I saw and evaluated the [...] multidisciplinary team. SONALI MILLS MD Attending Psychiatrist [facility] Pager [phone] * Venkata Telles LICSW - 08/30/2018 1319 EDT Social Work Progress Note Intervention/Service: Community referral, Coordination of care and Discharge planning JIMENEZ met with Alonzo at 1pm to be present for his phone screening with [employer]. JIMENEZ was mistakenabout day of phone screening [...] looking forward to his intake interview for [employer] (which has not yet been scheduled), and to taking time after that to fish and reflect. He spoke with his sales representative publications today, and learned that he will need to spend some time in nursing home for his DUI (anywhere from 1-12 months). Alonzo has agreed to taking lactulose once a day, in the mornings. The nursing report indicates thathe has taken it twice a day for the past two days. Alonzo discussed further his reasons for lying about needing to take Tylenol for pain this weekend. He showed insight and connected his habit of manipulation to mobile application architect, reinforced by how effective it is [...] his stay in order to transition to [facility]. Diagnostic Impression w/ Differential Diagnosis Psychiatric [...] multidisciplinary team. SONALI MILLS MD Attending Psychiatrist [facility] Pager [phone] * Venkata Telles LICSW - 08/28/2018 1537 EDT Social Work Progress Note Intervention/Service: Coordination of care JIMENEZ met with Alonzo today. Alonzo was feeling really good about getting all of his furniture moved over the weekend. JIMENEZ explained that we need to reschedule his phone screening with [facility]. JIMENEZ left message with Marilyn at [facility]. CISCO Guillen * Sonali Mills MD, [...] his belongings, which were sent over from [facility] after his things were moved into [...] multidisciplinary team. SONALI MILLS MD Attending Psychiatrist [facility] Pager [phone] * Mason Hill MD, MD - 08/27/2018 0815 EDT 08/27/2018 ATTENDING BLEACHER PULP NOTE: CHIEF COMPLAINT: SI HOSPITAL DAY: LOS: [...] treatment plan. Mason Hill MD Attending Psychiatrist composite bond technician * Mason Hill MD, MD - 08/26/2018 0841 EDT 08/26/2018 ATTENDING BLEACHER PULP NOTE: CHIEF COMPLAINT: SI HOSPITAL DAY: LOS: [...] treatment plan. Mason Hill MD Attending Psychiatrist composite bond technician * Sonali Mills MD, MD - 08/25/2018 [...] multidisciplinary team. SONALI MILLS MD Attending Psychiatrist [facility] Pager [phone] * Venkata Telles [facility] - 08/25/2018 1500 EDT Social Work Progress Note Intervention/Service: Community referral, Coordination of care and Discharge planning JIMENEZ met with Alonzo today. Alonzo said he was having a rough day but feeling better. JIMENEZ explained thatwe will schedule him for a phone screening with [facility] on Tuesday. JIMENEZ let him know that he was scheduled for that today but SW canceled it. CISCO Guillen * Sonali Mills MD, - 08/24/2018 5044 EDT Medical Student Inpatient Psychiatry Daily Progress [...] multidisciplinary team. SONALI MILLS MD Attending Psychiatrist [facility] Pager [phone] * Venkata Telles LICSW - 08/24/2018 1552 [...] Marianna Walker MD - 08/24/2018 1413 EDT [facility] NEUROLOGY CONSULT PROGRESS NOTE PATIENT NAME: [...] and cocaine), who is currently admitted to [facility] with suicidal ideation. Neurology is consulted for [...] multidisciplinary team. SONALI MILLS MD Attending Psychiatrist [facility] Pager [phone] * Bette Rashid RN - 08/22/2018 6685 EDT Data: Patient denies SI/HI here. His [...] to court. SW also faxed clinical to [facility] to get him connected with SA [...] - but then I am going to pick pack worker a bottle and that's it He states [...] will also get him connected with the [facility] crisis service. We will also start the [...] individual therapy. NORBERTO Miranda 08/22/2018 14:25 PGY2 Deputy Sheriff Chief Attending Attestation:I saw and evaluated the patient [...] multidisciplinary team. SONALI MILLS MD Attending Psychiatrist [facility] Pager [phone] * Marianna Walker MD - 08/22/2018 5721 EDT [facility] NEUROLOGY CONSULT PROGRESS NOTE PATIENT NAME: [...] and cocaine), who is currently admitted to [facility] with suicidal ideation. Neurology is [...] will fill out. [facility] JIMENEZ will fax clinical. CISCO Guillen * Marianna Walker MD - 08/21/2018 1320 EDT [facility] NEUROLOGY CONSULT PROGRESS NOTE PATIENT NAME: [...] and cocaine), who is currently admitted to [facility] with suicidal ideation. Neurology is consulted for [...] belongings from one apartment to another in [facility]. Alonzo will need to arrange transportation [...] team rounds. NORBERTO Miranda 08/21/2018 8:17 PGY2 Deputy Sheriff Chief Attending Attestation: I saw and evaluated the [...] multidisciplinary team. SONALI MILLS MD Attending Psychiatrist [facility] Pager [phone] * Arturo Keller MD, MD - 08/20/2018 6426 EDT ATTENDING BLEACHER PULP NOTE REASON FOR HOSPITALIZATION: HOSPITAL DAY: LOS: [...] MBBS 100 mg at 08/19/18912 ? A Prfaul Keller MD, MPH Attending Psychiatrist composite bond technician * Micaela Ayers MD - 08/19/2018 1413 [...] this re-evaluation. Micaela Ayers MD Neurology PGY-3 #[id number] (#0047 afterhours and weekends) * Arturo Keller MD, MD - 08/19/2018 0732 EDT ATTENDING BLEACHER PULP NOTE REASON FOR HOSPITALIZATION: HOSPITAL DAY: LOS: [...] and coordination of care,including serial discussions with staffing program manager (Chirag Bass), d/w Dr Ayers, record review and related matters. Arturo Keller MD, MPH Attending Psychiatrist composite bond technician * Lloyd Lou MD, MD - 08/18/2018 [...] Joanie Aviles DO - 08/18/2018 1636 EDT [facility] NEUROLOGY CONSULT PROGRESS NOTE PATIENT NAME: [...] and cocaine), who is currently admitted to [facility] with suicidal ideation. Neurology is consulted for [...] 20:59 * Venkata Telles LICSW - 08/18/2018 4923 EDT Social Work Progress Note Intervention/Service: Coordination of care and Discharge planning JIMENEZ assisted Alonzo with contacting his [employer] in an effort to get his Debit card information to get his car out of the impound. The [employer] was only able to give routing number and account number for a electronic payment. Unfortunately the [employer] could not process a payment in that way. [facility] project manager Evonne Ya who agreed to cover cost of [employer] [place]. Alonzo was very appreciative of the support. CISCO Guillen * Venkata Telles LICSW - 08/18/2018 0953 EDT Social Work Progress Note Intervention/Service: Coordination of care JIMENEZ met with Alonzo and made several calls to his [employer], the [employer] that has his car, and [employer] consulting services project manager. Eventually is was decided that [facility] would cover the cost of getting Alonzo' [...] team rounds. NORBERTO Miranda 08/18/2018 8:52 PGY2 Deputy Sheriff Chief Attending Attestation: I saw and evaluated the [...] multidisciplinary team. SONALI MILLS MD Attending Psychiatrist [facility] Pager [phone] * Venkata Telles LICSW - 08/17/2018 1437 EDT Social Work Progress Note Intervention/Service: Coordination of care and Discharge planning Alonzo reported this morning that he had heard back from [employer]. Alonzo reports that they are going to [...] - encourage groups Substance use disorder: Active [facility] monitoring protocol Substance use/ Recovery [...] team rounds. NORBERTO Miranda 08/17/2018 8:18 PGY2 Deputy Sheriff Chief Attending Attestation: I saw and evaluated the [...] multidisciplinary team. SONALI MILLS MD Attending Psychiatrist [facility] Pager [phone] * Venkata Telles LICSW - 08/16/2018 1630 EDT Social Work Progress Note Intervention/Service: Community referral, Coordination of care and Discharge planning JIMENEZ met with Alonzo today. Alonzo has not heard back from [employer]. JIMENEZ and Alonzo discussed possibility of him having his car towed from [employer] to his apartment. Alonzo said that could work but hedoes not have a way to pay [employer]. All of his credit cards and debit cards are in his apartment. JIMENEZ asked if he could ask his Landlord for assistance. Alonzo thought that it might be possiblefor his land lord to pick pack worker his car. Alonzo plans to call him [...] - encourage groups Substance use disorder: Active [facility] monitoring protocol Substance use/ Recovery [...] attestation - Kojo Yanez MD - 09/21/2018 0834 EDT Attending Attestation: I saw and evaluated the patient 08/16/18. Treatment plan reviewed with the patient and team. I agree with (and have edited in italics) the findings and plan of care as documented in the resident/PA's note. Kojo Yanez MD Attending Psychiatrist Pager [phone] * Sienna Ham RN - 08/15/2018 3364 EDT Assumed patient care at 19:00. Patient [...] team rounds. NORBERTO Miranda 08/15/2018 14:40 PGY2 Deputy Sheriff Chief Attending Attestation: I saw and evaluated the [...] multidisciplinary team. SONALI MILLS MD Attending Psychiatrist [facility] Pager [phone] * Venkata Telles [facility] - 08/15/2018 1155 EDT Social Work Progress Note Intervention/Service: Community referral, Coordination of care and Discharge planning JIMENEZ met with Alonzo today and assisted him with calling Paul [employer]ED[employer] to find out where his car is impounded. JIMENEZ contacted [employer] and they have his car. Alonzo stated he has not outside support to help him get his car moved. [employer] is charging $55.00/day for storage and $150.00 [...] - encourage groups Substance use disorder: Active [facility] monitoring protocol Substance use/ Recovery [...] multidisciplinary team. SONALI MILLS MD Attending Psychiatrist [facility] Pager [phone] * Venkata Telles LICSW - 08/14/2018 1610 EDT Social Work Progress Note Intervention/Service: Coordination [...] team. Chantal Brewer PsyD. Staff Psychologist Pager [phone] * Chantal Brewer PsyD - 08/12/2018 0735 [...] He was irritable and somewhatcombative with the pattern chart writer. He appears to experience significant guilt as [...] He abruptly ended his meeting with the pattern chart writer by stating, I don't want to talk [...] team. Chantal Brewer PsyD. Staff Psychologist Pager [phone] * Tl St, PhD - 08/11/2018 018 EDT [facility] Department of Psychiatry-Inpatient Psychiatry GT Note Re: Alonzo Urbina : 1955 AGE: 63 y.o. Room: [place] [id number] The patient attended the Recovery Group this evening at 18:15. The Recovery Group Volunteers reported to this pattern chart writer, at the end of the session, that the patient J.W. made several Self-Harm and Suicidal statements while in group, adding that he was in [place] to[place] seek to , as he endorsed no hope for the future, and no support either from the multidis ciplinary treatment team on the unit or in the community. This pattern chart writer communicated this with staffing program manager and will meet with both the MD composite bond technician (currently in a meeting with another patient) [...] long relationship for which he moved to [facility] in which the woman told him one day: I don't like you and asked him to move out. He then got the first apartment he could in [facility] which doesn't feel like home. [...] multidisciplinary team. SONALI MILLS MD Attending Psychiatrist [facility] Pager [phone] * Venkata Telles [facility] - 08/10/2018 4363 EDT Psychosocial Assessment & Initial Discharge Plan [...] and Contact Telephone Numbers: Elena Allen (Friend) [phone] (H) Family Constellation/Pertinent Family History: Alonzo was living with a girlfriend up until a year when she left to go to [facility] with a class she teaching Alonzo relapsed on alcohol. His girlfriend returned from her trip and asked him to leave her home. Alonzo has been couch surfing and drinking ever s terry he moved out. Other Social Supports: None identified. Education/Employment Financial: Alonzo is currently working at [employer]. Alonzo asked that SW contact them to let them know he would not be coming in. Substance Abuse and Treatment History: Alonzo has had 3 previous rehabilitation stays. Mental Health Treatment History: No previous psychiatric hospitalizations. Mental Health and Other Providers: None identified. Legal Issues: 2nd DUI a few days ago. Spiritual/Temple/Cultural Considerations: None identified. Other Issues/Supports/Barriers to Adaptive [...] 08/09/2018 Date of service: 08/09/2018 Referral source: [facility] Outpatient providers: none PCP: Laurie Wiggins [...] to meeting his current girlfriend who is Italian and drank alcohol/wine every day. On meeting her, the patient started to drink the occasional glass of wineand quickly relapsed into binges of alcohol sometimes lasting all night. His relationship with his girlfriend was already strained however when she went to [facility] he spent all night drinking at [...] DUI yesterday. He spent the night in nursing home and was released this morning when hewas faced with the prospect of walking 40 miles to his home as he has no money. He describes this as the last straw and thinking that he just wanted to . He mentioned this to the social services manager at the police station who then brought [...] month when he was working in the [employer] discontinued due to oversedation. 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 Sonali Mills MD Attending Psychiatrist [facility] Beeper #[id number] documented in this encounter Procedure Notes * [...] ml Specimen removed: None 1% lidocaine: Lot: [id number] Exp: MAR 2021 Consent was signed by [...] on two healthy snacks that he likes, sinhala yogurt, and Kind Bars. Pt expressed his [...] Nathanael Coleman, MS RD SHP3/SHP6 Dietitian Pager: [phone] * José Catalan MD, MD - 09/06/2018 [...] he has noted that while working at [employer] he would sometimes take note of what [...] file Gets together: Not on file Attends latter-day service: Not on file Active member of [...] back surgery for scoliosis currently admitted to [facility] for depression. Patient was in their USOH [...] (alcohol andcocaine), who is currently admitted to [facility] with suicidal ideation. Neurology is consulted for [...] much. Of note, he was admitted to [facility] for a duodenal ulcer bleed [...] and cocaine), who is currently admitted to [facility] with suicidal ideation. Neurology is consulted for [...] stating he was looking forward to going [employer] on Tuesday. Patient also eager to report [...] the end of the stay at the [facility]. He asked about what to do [...] his peers being discharged?? . Pt researched w/pattern chart writer [facility] concerning [facility] upcoming discharge. Pt [...] with medications as ordered. Pt had a end stapler this shift - please, see his note. [...] in trouble with the law with possible nursing home time resulting, he was taking his recovery [...] Family DISCHARGE PLANS: Alonzo will discharge to [facility] with follow up through [facility]. Treatment Team Members Resident MD: n/a RN: Nancy Ventura RN Therapist: EUGENIO Oneil Audio Visual Tech:CISCO Guillen PharmD: Attending physician statement/signature: Based on [...] Care - Julienne Suárez RN - 09/06/2018 0914 EDT Problem: Daily Care Plan Goals Goal: Care Plan Documentation Outcome: Met This Shift 09/06/18 0918 Care Plan Focus Area of Focus Safety [...] Goal This Shift sleeps 6-8 hours overnight 4582-6244 Data: Frequent, Voluntary, Level 3. Pt appeared [...] Care - Dhara Anne RN - 09/05/2018 5606 EDT Problem: Daily Care Plan Goals Goal: Care Plan Documentation Outcome: Met This Shift 09/05/181842 Care Plan Focus Area of Focus Safety Goal This Shift Patient will remain safe throughout shift. [facility] care 4189-0995 Data: Pt requested to sleep at beginning of shift. Pt did not awake during shift. Action: Provided & promoted a therapeutic sleep environment, available for needs throughout shift, preformed visual checks as ordered. Response: Pt reported he has not been sleeping well the past few nights. Pt requested rest & sleep at [facility] & pt was OOB at 2044. Pt had a peer (Kiley) visit w/him outside his room w/chair in the doorway. Pt told the pattern chart writer ???this is not a crush or love or anything?? . Pt remained safe, remained in his room this shift w/behavior in control. Pt slept 0. 15 hrs this shift. Will continue to mon itor. * Plan of Care - Katina Ibanez RN - 09/05/2018 7657 EDT Problem: Daily Care Plan Goals Goal: Care Plan Documentation 09/05/18 953 Care Plan Focus Area of Focus Safety [...] pt voice concerns r/t d/c and possible nursing home time. Response: Pt has had 6 formed [...] Shift to keep the pt safe SHIFT: 8263-6099 Problem: Daily Care Plan Goals Goal: Care Plan Documentation Outcome: Ongoing ?? 09/04/18 0753 Care Plan Focus Area of Focus Safety Goal This Shift to keep the pt safe DATA:?Pt's Observation level: Frequent/Voluntary/3. Patient awake in bed at the beginning of this pattern chart writer's shift. A/o to person, place, and time; Denies SI/HI/AVH/Pain. Pt is polite and cooperative; Mood is mixed; affect is anxious. Behavior over talkative in the start of this pattern chart writer's shift; however, as the day progressed pt [...] pt relaxes his speech gets better. MD composite bond technician aware and case discussed. Please refer to [...] remained safe on the unit during this pattern chart writer's shift. Continue to monitor the patient as per orders. Will endorse to oncoming RN. Pt denies having another BM since last lactulose dose. Pt called this pattern chart writer ~1700 and told that he is DNR also told this pattern chart writer to get a box full of papers that he brought with him to look for DNR form. Staff found the box pt was referring to and this pattern chart writer took the papersto the pt. Pt took out his DNR/DNI form to show and for us to keep for the record. This pattern chart writer called the composite bond technician MD Adrian Rivas to discuss the code status as in computer pt's status is Full Code. MD has put a note in pt's chart please refer to MDs clear instructions. For now pt remains Full Codeuntil further evaluation of capacity and the resolution of the discrepancy in the code status. Thiswriter has informed the solar electric installer of this information. The form that pt gave to this pattern chart writer has been placed in the patient's paper [...] 12:14 * Plan of Care - Aimee Covlin RN - 09/03/2018 0644 EDT Problem: Daily [...] Team - Sonali Kaufman RN - 09/01/2018 5573 EDT Psychiatry Multidisciplinary Treatment Plan - Update [...] Laine Pichardo RN Therapist: Tl St, PhD Audio Visual Tech:Chen Hickman PharmD: Attending physician statement/signature: Based on [...] Goal This Shift sleeps 6-8 hours overnight 8647-6161 Data: Routine, Voluntary, Level 3. Pt awake [...] needs/concerns. * Plan of Care - Dhara nAne RN - 08/31/2018 1910 EDT Problem: Daily Care Plan Goals Goal: Care Plan Documentation Outcome: Met This Shift 08/31/18 1545 Care Plan Focus Area of Focus Psychosocial Goal This Shift Pt will be appropriate w/peers in milieu Assumed Care 6445-8114 Data: Pt was in his room w/medical [...] need. Asked appropriate questions about his medications. [place] that the frequency of checks has been [...] pain or discomfort. Requested to speak to pattern chart writer at ~0045-during 1:1 Alonzo reported that he got some bad news today and he states his sales representative publications told him he will most likely be going to nursing home for at least 30 days d/t his 2 DUI's in a 6 month time frame. Alonzo spoke to pattern chart writer about feeling guilty about things he has [...] Behavior in control. Engaging appropriately with this pattern chart writer and with peers. JENNIFER QUILES RN 08/29/2018 [...] was going to be changed. Spoke to pattern chart writer regarding his conflict with another patient on [...] shift(he reports 35). At ~0300 Alonzo asked pattern chart writer to talk-Aolnzo stated I need to tell you something. [...] to garden because it reminds him of [place] fishing which is something that he says he greatly misses and hopes to be able to do when he returns home. Alonzo expressed relief at being able to open up to pattern chart writer regarding asking for tylenol when he feels [...] of shift from day to evening this pattern chart writer attempted to let him know I would [...] During a 1:1 this evening with this pattern chart writer, Alonzo continued to express his frustration over [...] was not noted to be one in [place]. Patient would like to take his HS [...] provided topical cream after alpha page doctor composite bond technician. Patient not sleeping at being of shift. [...] 08/25/2018 14:06 * Plan of Care - Eupora Emerald - 08/25/2018 1113 EDT Problem: Daily [...] to monitor safety, sleep and behaviors. Emerald Eupora 08/25/2018 11:04 * Plan of Care - [...] something to eat referring to team station. Cable Stretcher And Tester asked Alonzo if he knew where he was and he looked at pattern chart writer with confused look on his face and did not answer. Md Holm was made aware and stated would come to the unit to assess. Irritable when answering questions. Cable Stretcher And Tester again asked Alonzo if he knew wherehe [...] Care - Sienna Ham RN - 08/24/2018 8210 EDT Problem: Daily Care Plan Goals Goal: [...] Care - Debi Benson RN - 08/23/2018 6714 EDT Problem: Daily Care Plan Goals Goal: [...] Care - Debi Benson RN - 08/22/2018 5175 EDT Problem: Daily Care Plan Goals Goal: [...] 08/22. Alonzo agreed that he would let pattern chart writer know if headache pain did not continue [...] Team - Sonali Kaufman RN - 08/22/2018 0935 EDT Psychiatry Multidisciplinary Treatment Plan - Update [...] Abuse Program and has been referred to [facility] Treatment Team Members Resident MD: n/a RN: Debi Benson RN Therapist: MEGHAN SWARTZ MS Audio Visual Tech: CISCO Guillen PharmD: Attending physician statement/signature: Based [...] Care - Julienne Suárez RN - 08/22/2018 1499 EDT Problem: Daily Care Plan Goals Goal: [...] Care - Debi Benson RN - 08/21/2018 7407 EDT Problem: Daily Care Plan Goals Goal: [...] wayne. Spoke about listening to a book [employer] in [place]- which he states is about the movie [...] RESPONSE: Alonzo remains safe. As of 0600 Alonoz is documented to have appeared to sleep [...] Care - Chirag Kapadia RN - 08/19/2018 7391 EDT Problem: Daily Care Plan Goals Goal: Care Plan Documentation 08/19/18 0700 08/19/18 1600 Care Plan Focus Area of Focus -- Safety Goal This Shift Pt will have less discomfort -- Safety Data: Patient isolative in room this evening but was engaging in conversation with this pattern chart writer regarding his difficult hopeless situation. Patient feels [...] pain persisted. I contacted pain service (beeper [phone]) again at 13:30 to discuss procedure and [...] pt will remain safe on the unit 3011-4302 Data: Frequent, Voluntary, Level 3. Pt resting [...] monitor. Has remained safe on the unit. 6128-7233: Pt appeared asleep at start of shift. [...] Goal This Shift sleeps 6-8 hours overnight 6202-3744 Data: Frequent, Voluntary, Level 3. Pt reported [...] routine observation. Pt resting comfortably when the pattern chart writer took over his care at 2330. Pt [...] IV medications to help treat this. This pattern chart writer consulted with Desiree the pharmacist as the [...] Team - Sonali Kaufman RN - 08/15/2018 0982 EDT Psychiatry Multidisciplinary Treatment Plan - Update [...] post-d/c andwhether he will be going to nursing home LOCUS Risk of Harm: Current locus of [...] Debi Benson RN Therapist: MEGHAN SWARTZ MS Audio Visual Tech:CISCO Guillen PharmD: Attending physician statement/signature: Based on [...] Care - Janie Urban RN - 08/13/2018 2987 EDT Problem: Daily Care Plan Goals Goal: [...] anxiety continues, unrelieved by another dose of [id number] at noon. 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 [facility] Guideline: 11 days Principal Dx: F10.20 Alcohol Use Disorder Problem List: Active Hospital Problems *Suicidal ideation Depression Substance abuse ([facility]) Patient's Weaknesses: Substance use, Limited supports, [...] RN: Debi Benson RN Therapist: EUGENIO Oneil Audio Visual Tech: CISCO Guillen PharmD: Patient Involvement This Treatment [...] Patient will remain safe on the unit 5430-9271 Data: Locus of harm level 4. Indorsed [...] to sleep intermittently for 2.5 hours from 5843-9430. Howie Marques RN 08/10/2018 22:17 * Daily [...] safe on unit Data: Care of patient [id number]. Pt presents this shift with a depressed [...] after using alcohol and cocaine at a democrat and choking on food. Pt states he [...] [address] to a bar in [facility] for no reason he can think of. Pt got a DUI (2nd in a year) And was thrown into a dry out facility in [place] for the night. He was brought to hospital in [facility] after reporting he was suicidal at [facility]. Pt reports he has never received psychiatric [...] Visit [facility] General Surgery - [address] [id number] Bon Gutierrez MD [address] [place] [address], [address] [place] [id number] 09/10/2024 10:00 EDT Appointment Shaina Mejia [address] [place], [place] [id number] Scheduled Referrals Name Type Priority Associated Diagnoses [...] in this encounter Results * MISCELLANEOUS TEST, [place] (09/07/2018 12:43 EDT) Test Name Citalopram Serum 09/07/2018 13:18 EDT [facility] Result See Pathology Scanned Report in [facility]. 09/12/2018 16:25 EDT [facility] Ref Range See Pathology Scanned Report in [facility]. 09/12/2018 16:25 EDT [facility] Ref Lab Test performed by: 09/12/2018 16:25 EDT [facility] Comment: [facility] [place], [place] Specimen of unknown material (specimen) TOPOGRAPHY UNKNOWN / Unknown 09/07/2018 12:43 EDT 09/07/2018 13:18 EDT Sania THORNTON CHEMISTRY & BLOOD GA S ORDERABLES [facility] [address] [place] [address] * HEMOGLOBIN A1C (09/07/2018 6:44 EDT) Hemoglobin A1C 5.7 % 09/07/2018 8:49 EDT [facility] Comment: Reference Range: <5.7% Normal 5.7-6.4% Prediabetes =>6.5% Diagnostic for diabetes (if confirmed) Goals for glycemic control in diabetes ADA 2017 For non adults with diabetes: ?? Target <7.0% For children and adolescents with type 1 diabetes: ?? Target <7.5% More or less stringent targets may be appropriate for individual patients. Est Avg Glucose 117 mg/dl 9 8:49 EDT [facility] Comment: eAG represents the A1c result expressed as average glucose in mg/dl. Blood specimen (specimen) BLOOD SPECIMEN / Unknown 09/07/2018 6:44 EDT 09/07/2018 7:02 EDT Sania THORNTON CHEMISTRY & BLOOD GA S ORDERABLES Performing Organization Address City/State/[facility] Co de Phone Number [facility] [address] [place] [address] * RAD US LIVER WITH DOPPLER (09/06/2018 [...] 70 - 100 mg/dl 09/06/2018 18:55 EDT [facility] Band Bias Machine Operator ID [id number] 09/06/2018 18:55 EDT [facility] Comment:Test Performed by [facility] Services BLOOD SPECIMEN / Unknown 09/06/2018 16:53 EDT 09/06/2018 18:55 EDT Sonali Mills MD CHEMISTRY & BLOOD GAS ORDERABLES Performing Organization Address City/[facility]/ZIP Co de Phone Number [facility] [address] [place] [address] * (ABNORMAL) AMMONIA (09/06/2018 9:45 EDT) Ammonia 88(H) <34 umol/L 09/06/2018 10:12 EDT [facility] Blood specimen (specimen) BLOOD SPECIMEN / Unknown 09/06/2018 9:45 EDT 09/06/2018 9:55 EDT Sania THORNTON CHEMISTRY & BLOOD GA S ORDERABLES Performing Organization Address [facility] Co de Phone Number [facility] [address] [place] [address] * CREATININE (09/06/2018 9:45 EDT) Creatinine 0.76 0.66 - 1.25 mg/dl 09/06/2018 10:48 EDT [facility] GFR, Calculated 96 >60 ml/min/1.7 3m2 09/06/2018 10:48 EDT [facility] Comment: eGFR calculated using CKD-EPI equation for non Americans. Multiply eGFR by 1.16 for Americans. Blood specimen (specimen) BLOOD SPECIMEN / Unknown 09/06/2018 9:45 EDT 09/06/2018 10:15 EDT Sania THORNTON CHEMISTRY & BLOOD GA S ORDERABLES Performing Organization Address [facility]/ZIP Co de Phone Number [facility] [address] [place] [address] * BUN (09/06/2018 9:45 EDT) BUN 18 10 - 26 mg/dl 09/06/2018 10:48 EDT [facility] Blood specimen (specimen) BLOOD SPECIMEN / Unknown 09/06/2018 9:45 EDT 09/06/2018 10:15 EDT Sania THORNTON CHEMISTRY & BLOOD GA S ORDERABLES Performing Organization Address City/[facility]/ZIP Co de Phone Number [facility] [address] [place] [address] * LIPID PROFILE (INCLUDES CHOLESTEROL, TRIGLYCERIDES, HDL, LDL) (09/02/2018 11:33 EDT) Cholesterol 178 mg/dl 09/02/2018 12:11 [facility] Comment: Desirable:<200 Borderline High:200-239 High:>eg=533 Triglycerides 45 mg/dl 09/02/2018 12:11 [facility] Comment: Normal:<150 Borderline High:150-199 High:200-499 Very High:>io=798 HDL 85 mg/dl 09/02/2018 12:11 [facility] Comment: Low:<40 Normal:40-60 Desirable: >60 LDL, Calculated 84 mg/dl 9 12:11 [facility] Comment: Optimal:<100 Near Optimal:100-129 Borderline High:130-159 High:160-189 Very High:>ol=958 Chol/HDL Ratio 2.1 09/02/2018 12:11 [facility] Fasting? Unknown 09/02/2018 12:11 [facility] Non HDL Cholesterol 93 mg/dl 09/02/2018 12:11 [facility] Comment: Desirable:<130 Borderline:130-159 High: 160-189 Very High: >jl=441 Blood specimen (specimen) BLOOD SPECIMEN / Unknown 09/02/2018 11:33 EDT 09/02/2018 11:43 EDT Katina Garzon MD CHEMISTRY & BLOOD GA S ORDERABLES Performing Organization Address City/[facility]/ZIP Co de Phone Number [facility] [address] [place] [address] * (ABNORMAL) COMPLETE BLOOD COUNT (09/02/2018 11:33 EDT) WBC 3.03(L) 4.0 - 10.4 K/cmm 09/02/2018 11:51 EDT [facility] RBC 4.29(L) 4.36 - 5.78 M/cmm 09/02/2018 11:51 [facility] Hemoglobin 10.7(L) 13.8 - 17.3 gm/dl 09/02/2018 11:51 [facility] HCT 34.4(L) 39.5 - 50.2 % 09/02/2018 11:51 [facility] MCV 80(L) 81 - 95 fl 09/02/2018 11:51 [facility] MCH 24.9(L) 27.6 - 33.0 pg 09/02/2018 11:51 [facility] Hypochromia 1+ 09/02/2018 11:51 [facility] MCHC 31.1(L) 32.8 - 36.4 gm/dl 09/02/2018 11:51 [facility] RDW-CV 19.1(H) <14.2 % 09/02/2018 11:51 [facility] RDW-SD 54.9(H) <46.0 fl 09/02/2018 11:51 [facility] Anisocytosis 2+ 09/02/2018 11:51 [facility] PLT 133(L) 141 - 377 K/cmm 09/02/2018 11:51 [facility] MPV 9.6 9.5 - 12.7 fl 09/02/2018 11:51 [facility] Blood specimen (specimen) BLOOD SPECIMEN / Unknown 09/02/2018 11:33 EDT 09/02/2018 11:43 EDT Katina Garzon MD HEMATOLOGY & PF4 ORD ERABLES [facility] [address] [place] [address] * (ABNORMAL) PROTIME (09/02/2018 11:33 EDT) Pro Time 13.8(H) 10.3 - 13.4 secs 09/02/2018 11:59 EDT [facility] I.N.R. 1.2(H) 0.9 - 1.1 Ratio 09/02/2018 11:59 EDT [facility] Comment: Moderate Intensity Coumadin INR = 2.0-3.0 Adjustments in anticoagulant therapy dose should be based upon the INR and NOT the Pro Time. Blood specimen (specimen) BLOOD SPECIMEN / Unknown 09/02/2018 11:33 EDT 09/02/2018 11:43 EDT Katina Garzon MD HEMATOLOGY & PF4 ORD ERABLES Performing Organization Address [facility] Co de Phone Number [facility] [address] [place] [address] * BILIRUBIN, TOTAL (09/02/2018 11:33 EDT) Bilirubin, Total 0.9 <1.4 mg/dl 09/02/2018 12:11 EDT [facility] Blood specimen (specimen) BLOOD SPECIMEN / Unknown 09/02/2018 11:33 EDT 09/02/2018 11:43 EDT Katina Garzon MD CHEMISTRY & BLOOD GA S ORDERABLES Performing Organization Address [facility] Co de Phone Number [facility] [facility] [address] [place] [address] * ALT (09/02/2018 11:33 EDT) ALT 29 21 - 72 U/L 09/02/2018 12:11 EDT [facility] Blood specimen (specimen) BLOOD SPECIMEN / Unknown 09/02/2018 11:33 EDT 09/02/2018 11:43 EDT Katina Garzon MD CHEMISTRY & BLOOD GA S ORDERABLES Performing Organization Address City/[facility] Co de Phone Number [facility] [address] [place] [address] * AST (09/02/2018 11:33 EDT) AST 33 15 - 46 U/L 09/02/2018 12:11 EDT [facility] Blood specimen (specimen) BLOOD SPECIMEN / Unknown 09/02/2018 11:33 EDT 09/02/2018 11:43 EDT Katina Garzon MD CHEMISTRY & BLOOD GA S ORDERABLES Performing Organization Address [facility] de Phone Number [facility] [address] [place] [address] * CREATININE (09/02/2018 11:33 EDT) Creatinine 0.80 0.66 - 1.25 mg/dl 09/02/2018 12:11 EDT [facility] GFR, Calculated 94 >60 ml/min/1.7 3m2 09/02/2018 12:11 EDT [facility] Comment: eGFR calculated using CKD-EPI equation for non Americans. Multiply eGFR by 1.16 for Americans. Blood specimen (specimen) BLOOD SPECIMEN / Unknown 09/02/2018 11:33 EDT 09/02/2018 11:43 EDT Katina Garzon MD CHEMISTRY & BLOOD GA S ORDERABLES Performing Organization Address City/[facility] Co de Phone Number [facility] [address] [place] [address] * BUN (09/02/2018 11:33 EDT) BUN 17 10 - 26 mg/dl 09/02/2018 12:11 EDT [facility] Blood specimen (specimen) BLOOD SPECIMEN / Unknown 09/02/2018 11:33 EDT 09/02/2018 11:43 EDT Katina Garzon MD CHEMISTRY & BLOOD GA S ORDERABLES Performing Organization Address City/[facility] Co de Phone Number [facility] [address] [place] [address] * ELECTROLYTES (09/02/2018 11:33 EDT) Sodium 139 136 - 145 mEq/L 09/02/2018 12:11 EDT [facility] Potassium 4.5 3.5 - 5.0 mEq/L 09/02/2018 12:11 EDT [facility] Chloride 103 96 - 110 mEq/L 09/02/2018 12:11 EDT [facility] CO2 25 22 - 32 mEq/L 09/02/2018 12:11 EDT [facility] Blood specimen (specimen) BLOOD SPECIMEN / Unknown 09/02/2018 11:33 EDT 09/02/2018 11:43 EDT Katina Garzon MD CHEMISTRY & BLOOD GA S ORDERABLES Performing Organization Address [facility] de Phone Number [facility] [address] [place] [address] * MR HEAD WO CONTRAST (09/02/2018 8:49 [...] 23:51 EDT) Result Negative 09/02/2018 9:24 EDT [facility] Stool specimen (specimen) STOOL SPECIMEN / Unknown 09/01/2018 23:51 EDT 09/02/2018 8:22 EDT Sania THORNTON MICROBIOLOGY - GENER AL ORDERABLES [facility] [address] [place] [address] * CT HEAD WO CONTRAST (09/01/2018 16:50 [...] 70 - 100 mg/dl 09/02/2018 3:31 EDT [facility] Band Bias Machine Operator ID [id number] 09/02/2018 3:31 EDT [facility] Comment:[facility] BLOOD SPECIMEN / Unknown 09/01/2018 16:33 EDT 09/02/2018 3:31 EDT Sonali Mills MD CHEMISTRY & BLOOD GAS ORDERABLES Performing Organization Address City/[facility]/ZIP Co de Phone Number [facility] [address] [place] [address] * (ABNORMAL) AMMONIA (09/01/2018 11:20 EDT) Ammonia 74(H) <34 umol/L 09/01/2018 12:10 EDT [facility] Blood specimen (specimen) BLOOD SPECIMEN / Unknown 09/01/2018 11:20 EDT 09/01/2018 11:36 EDT Sania THORNTON CHEMISTRY & BLOOD GA S ORDERABLES Performing Organization Address [facility] Co de Phone Number [facility] [address] [place] [address] * ELECTROLYTES (09/01/2018 11:17 EDT) Sodium 138 136 - 145 mEq/L 09/01/2018 14:10 EDT [facility] Potassium 4.4 3.5 - 5.0 mEq/L 09/01/2018 14:10 EDT [facility] Comment: Interpret results with caution. Prolonged sample storage may alter result. Chloride 104 96 - 110 mEq/L 09/01/2018 14:10 EDT [facility] CO2 27 22 - 32 mEq/L 09/01/2018 14:10 EDT [facility] Comment: Interpret results with caution. Prolonged sample storage may alter result. BLOOD SPECIMEN / Unknown 09/01/2018 11:17 EDT 09/01/2018 11:37 EDT Sonali Mills MD CHEMISTRY & BLOOD GAS ORDERABLES Performing Organization Address City/[facility] Co de Phone Number [facility] [address] [place] [address] * (ABNORMAL) COMPLETE BLOOD COUNT (09/01/2018 11:17 EDT) WBC 2.95(L) 4.0 - 10.4 K/cmm 09/01/2018 11:56 EDT [facility] RBC 4.26(L) 4.36 - 5.78 M/cmm 09/01/2018 11:56 [facility] Hemoglobin 10.7(L) 13.8 - 17.3 gm/dl 09/01/2018 11:56 [facility] HCT 34.6(L) 39.5 - 50.2 % 09/01/2018 11:56 [facility] MCV 81 81 - 95 fl 09/01/2018 11:56 [facility] MCH 25.1(L) 27.6 - 33.0 pg 09/01/2018 11:56 [facility] Hypochromia 1+ 09/01/2018 11:56 [facility] MCHC 30.9(L) 32.8 - 36.4 gm/dl 09/01/2018 11:56 [facility] RDW-CV 18.9(H) <14.2 % 09/01/2018 11:56 [facility] RDW-SD 55.0(H) <46.0 fl 09/01/2018 11:56 [facility] Anisocytosis 1+ 09/01/2018 11:56 [facility] PLT 133(L) 141 - 377 K/cmm 09/01/2018 11:56 [facility] MPV 9.6 9.5 - 12.7 fl 09/01/2018 11:56 [facility] BLOOD SPECIMEN / Unknown 09/01/2018 11:17 EDT 09/01/2018 11:37 EDT Sonali Mills MD HEMATOLOGY & PF4 O RDERABLES [facility] [address] [place] [address] * HOLD SST (09/01/2018 11:17 EDT) Hold SST Hold for further testing. Specimen will be held for 5 days. 09/01/2018 11:37 [facility] BLOOD SPECIMEN / Unknown 09/01/2018 11:17 EDT 09/01/2018 11:37 EDT Sonali Mills MD LAB INFO SERVICE A ND SUPPORT & PHONE RESULT Performing Organization Address City/[facility]/ZIP Co de Phone Number [facility] [address] [place] [address] * HOLD LAVENDER TOP (09/01/2018 11:17 EDT) Hold Purple Top EDTA for hematology will be discarded after 48 hours, differential not available after 12 hours. 09/01/2018 11:37 EDT [facility] BLOOD SPECIMEN / Unknown 09/01/2018 11:17 EDT 09/01/2018 11:37 EDT Sonali Mills MD LAB INFO SERVICE A ND SUPPORT & PHONE RESULT Performing Organization Address [facility] Co de Phone Number [facility] [address] [place] [address] * URINE CULTURE IF POSITIVE (09/01/2018 10:53 EDT) Culture if Indicated Culture not indicated by urinalysis results. 09/01/2018 13:27 EDT [facility] Urine specimen (specimen) TOPOGRAPHY UNKNOWN / Unknown 09/01/2018 10:53 EDT 09/01/2018 13:04 EDT Sania THORNTON MICROBIOLOGY - GENER AL ORDERABLES Performing Organization Address [facility]/ZIP Co de Phone Number [facility] [address] [place] [address] * UA, CHEMICAL AND SEDIMENT ANALYSIS (DIPSTICK AND MICROSCOPIC) (09/01/2018 10:53 EDT) Color, UA Yellow 09/01/2018 13:27 EDT [facility] Clarity, UA Clear 09/01/2018 13:27 EDT [facility] Glucose, UA Neg Neg 09/01/2018 13:27 EDT [facility] Bilirubin, UA Neg Neg 09/01/2018 13:27 [facility] Ketones, UA Neg Neg 09/01/2018 13:27 [facility] Refractometer SG,Urine 1.018 1.001 - 1.035 09/01/2018 13:27 [facility] Blood, UA Neg Neg 09/01/2018 13:27 [facility] pH, UA 7.0 4.6 - 8.0 09/01/2018 13:27 [facility] Protein, UA Neg Neg 09/01/2018 13:27 [facility] Urobilinogen, UA Normal Normal E.U./dl 09/01/2018 13:27 [facility] Nitrite, UA Neg Neg 09/01/2018 13:27 [facility] Leuk Esterase Neg Neg 09/01/2018 13:27 [facility] UA Method Used 09/01/2018 10:10 [facility] Comment: Testing performed using [employer]. Urine RBC Count Automated 0 to 2 0 to 2 /HPF 09/01/2018 13:27 [facility] Urine WBC Count Automated 0 to 3 0 to 3 /HPF 09/01/2018 13:27 [facility] Urine Squamous Epithelial Cell Count, Automated None seen None seen /LPF 09/01/2018 13:27 [facility] Urine Hyaline Casts, Automated < or = 10 < or = 10 /LPF 09/01/2018 13:27 [facility] Urine Bacteria Count, Automated None seen None seen 09/01/2018 13:27 [facility] UA Comment Sediment results 09/01/2018 13:27 [facility] Comment: are unreliable on urines unrefrig >2hrs or refrig >8hrs. Urine specimen (specimen) URINE / Unknown 09/01/2018 10:53 EDT 09/01/2018 13:04 EDT Sania THORNTON URINALYSIS ORDERABLE S [facility] [address] [place] [address] * DRUG SCREEN 11, URINE (09/01/2018 10:53 EDT) Amphetamine Screen Negative screen. 09/01/2018 14:55 [facility] Comment: Confirmation testing available upon request. Suitable for medical purposes only. Will not detect all drugs within class. Cutoff = 500 ng/ml Specimen type is urine. Barbituate Screen Negative screen. 09/01/2018 14:55 [facility] Comment: Confirmation testing available upon request. Suitable for medical purposes only. Will not detect all drugs within class. Cutoff = 200 ng/ml Specimen type is urine. Benzodiazepine Scrn Negative screen. 09/01/2018 14:55 [facility] Comment: Confirmation testing available upon request. Suitable for medical purposes only. Will not detect all drugs within class. Cutoff = 150 ng/ml Specimen type is urine. Cannabinoids Screen Negative screen. 09/01/2018 14:55 [facility] Comment: Confirmation testing available upon request. Suitable for medical purposes only. Will not detect all drugs within class. Cutoff = 50 ng/ml Specimen type is urine. Methadone Screen Negative screen. 09/01/2018 14:55 [facility] Comment: Confirmation testing available upon request. Suitable for medical purposes only. Will not detect all drugs within class. Cutoff = 200 ng/ml Specimen type is urine. Opiates Screen Negative screen. 09/01/2018 14:55 [facility] Comment: Confirmation testing available upon request. Suitable for medical purposes only. Will not detect all drugs within class. Cutoff = 100 ng/ml Specimen type is urine. Oxycodone Screen Negative screen. 09/01/2018 14:55 [facility] Comment: Confirmation testing available upon request. Suitable for medical purposes only. Will not detect all drugs within class. Cutoff = 100 ng/ml Specimen type is urine. Cocaine Metabolites Negative screen. 09/01/2018 14:55 [facility] Comment: Confirmation testing available upon request. Suitable for medical purposes only. Will not detect all drugs within class. Cutoff = 150 ng/ml Specimen type is urine. Buprenorph and Metab Negative screen. 09/01/2018 14:55 [facility] Comment: Confirmation testing available upon request. Suitable for medical purposes only. Will not detect all drugs within class. Cutoff = 10 ng/ml Specimen type is urine. Methamphetamine Scrn Negative screen. 09/01/2018 14:55 EDT [facility] Comment: Confirmation testing available upon request. Suitable for medical purposes only. Will not detect all drugs within class. Cutoff = 500 ng/ml Specimen type is urine. Propoxyphene Screen Negative screen. 09/01/2018 14:55 EDT [facility] Comment: Confirmation testing available upon request. Suitable for medical purposes only. Will not detect all drugs within class. Cutoff = 300 ng/ml Specimen type is urine. Urine specimen (specimen) URINE / Unknown 09/01/2018 10:53 EDT 09/01/2018 13:04 EDT Sania THORNTON GEN LAB UNIT COLLECT ORDERABLES Performing Organization Address City/[facility] Co de Phone Number [facility] [address] [place] [address] * INPATIENT ADD-ON (09/01/2018 10:30 EDT) Tests to be added CBC,ELECTR OLYTES 09/01/2018 10:26 EDT [facility] Number for problems [id number] 09/01/2018 11:51 EDT [facility] Accession number [id number] 09/01/2018 11:51 EDT [facility] TOPOGRAPHY UNKNOWN / Unknown 09/01/2018 10:30 EDT 09/01/2018 11:50 EDT Sania THORNTON HEMATOLOGY & PF4 ORD ERABLES Performing Organization Address City/[facility] Co de Phone Number [facility] [address] [place] [address] * (ABNORMAL) AMMONIA (08/25/2018 10:30 EDT) Ammonia 56(H) <34 umol/L 08/25/2018 10:56 EDT [facility] Blood specimen (specimen) BLOOD SPECIMEN / Unknown 08/25/2018 10:30 EDT 08/25/2018 10:40 EDT Marko Mckeon MD CHEMISTRY & BLOOD GA S ORDERABLES [facility] [address] [place] [address] * NEPHROLOGY PROFILE (INCLUDES BUN, CREATININE, CALCULATED GFR, ELECTROLYTES, CALCIUM, PHOSPHORUS, ALBUMIN) (08/25/2018 10:30 EDT) Sodium 141 136 - 145 mEq/L 08/25/2018 10:59 [facility] Potassium 4.2 3.5 - 5.0 mEq/L 08/25/2018 10:59 [facility] Chloride 110 96 - 110 mEq/L 08/25/2018 10:59 [facility] CO2 23 22 - 32 mEq/L 08/25/2018 10:59 [facility] BUN 19 10 - 26 mg/dl 08/25/2018 10:59 [facility] Creatinine 0.77 0.66 - 1.25 mg/dl 08/25/2018 10:59 [facility] GFR, Calculated 95 >60 ml/min/1.7 3m2 08/25/2018 10:59 [facility] Comment: eGFR calculated using CKD-EPI equation for non Americans. Multiply eGFR by 1.16 for Americans. Calcium 10.0 8.5 - 10.5 mg/dl 08/25/2018 10:59 [facility] Calculated Calcium 9.8 8.5 - 10.5 mg/dl 08/25/2018 10:59 [facility] Phosphorus 3.8 2.5 - 4.5 mg/dl 08/25/2018 10:59 [facility] Albumin 4.2 3.4 - 4.9 g/dl 08/25/2018 10:59 [facility] Blood specimen (specimen) BLOOD SPECIMEN / Unknown 08/25/2018 10:30 EDT 08/25/2018 10:40 EDT Marko Mckeon MD PACKAGES & DNA PROBE ORDERABLES Performing Organization Address [facility] Co de Phone Number [facility] [address] [place] [address] * CK (08/25/2018 10:30 EDT) [facility] [address] CK 77 0 - 250 U/L 08/25/2018 10:59 EDT [facility] Blood specimen (specimen) BLOOD SPECIMEN / Unknown 08/25/2018 10:30 EDT 08/25/2018 10:40 EDT Marko Mckeon MD CHEMISTRY & BLOOD GA S ORDERABLES Performing Organization Address [facility] de Phone Number [facility] [address] [place] [address] * (ABNORMAL) PROTIME (08/21/2018 17:30 EDT) [facility] [address] Pro Time 15.1(H) 10.3 - 13.4 secs 08/21/2018 18:54 EDT [facility] I.N.R. 1.3(H) 0.9 - 1.1 Ratio 08/21/2018 18:54 EDT [facility] Comment: Moderate Intensity Coumadin INR = 2.0-3.0 Adjustments in anticoagulant therapy dose should be based upon the INR and NOT the Pro Time. Blood specimen (specimen) BLOOD SPECIMEN / Unknown 08/21/2018 17:30 EDT 08/21/2018 18:30 EDT Sania DANIELSBS HEMATOLOGY & PF4 ORD ERABLES Performing Organization Address [facility]/ZIP Co de Phone Number [facility] [address] [place] [address] * BILIRUBIN DIRECT/INDIRECT (08/21/2018 17:30 EDT) [facility] [address] Conjugated Bilirubin 0.0 0.0 - 0.3 mg/dl 08/21/2018 19:11 EDT [facility] Unconjugated Bilirubin 0.5 0.0 - 1.1 mg/dl 08/21/2018 19:11 EDT [facility] Blood specimen (specimen) BLOOD SPECIMEN / Unknown 08/21/2018 17:30 EDT 08/21/2018 18:30 EDT Sania THORNTON CHEMISTRY & BLOOD GA S ORDERABLES [facility] [address] [place] [address] * CREATININE (08/20/2018 7:12 EDT) Creatinine 0.74 0.66 - 1.25 mg/dl 08/20/2018 8:36 EDT [facility] GFR, Calculated 97 >60 ml/min/1.7 3m2 08/20/2018 8:36 EDT [facility] Comment: eGFR calculated using CKD-EPI equation for non Americans. Multiply eGFR by 1.16 for Americans. Blood specimen (specimen) BLOOD SPECIMEN / Unknown 08/20/2018 7:12 EDT 08/20/2018 8:08 EDT Arturo Keller MD CHEMISTRY & BLOOD GA S ORDERABLES Performing Organization Address City/[facility]/ZIP Co de Phone Number [facility] [address] [place] [address] * AST (08/20/2018 7:12 EDT) AST 26 15 - 46 U/L 08/20/2018 8:36 EDT [facility] Blood specimen (specimen) BLOOD SPECIMEN / Unknown 08/20/2018 7:12 EDT 08/20/2018 8:08 EDT Arturo Keller MD CHEMISTRY & BLOOD GA S ORDERABLES Performing Organization Address City/[facility]/ZIP Co de Phone Number [facility] [address] [place] [address] * ALT (08/20/2018 7:12 EDT) ALT 23 21 - 72 U/L 08/20/2018 8:36 EDT [facility] Blood specimen (specimen) BLOOD SPECIMEN / Unknown 08/20/2018 7:12 EDT 08/20/2018 8:08 EDT A Praful Keller MD CHEMISTRY & BLOOD GA S ORDERABLES [facility] [address] [place] [address] * (ABNORMAL) COMPLETE BLOOD COUNT (08/20/2018 7:12 EDT) WBC 2.32(L) 4.0 - 10.4 K/cmm 08/20/2018 8:18 [facility] RBC 3.69(L) 4.36 - 5.78 M/cmm 08/20/2018 8:18 [facility] Hemoglobin 9.3(L) 13.8 - 17.3 gm/dl 08/20/2018 8:18 [facility] HCT 29.5(L) 39.5 - 50.2 % 08/20/2018 8:18 [facility] MCV 80(L) 81 - 95 fl 08/20/2018 8:18 [facility] MCH 25.2(L) 27.6 - 33.0 pg 08/20/2018 8:18 [facility] Hypochromia 1+ 08/20/2018 8:18 [facility] MCHC 31.5(L) 32.8 - 36.4 gm/dl 08/20/2018 8:18 [facility] RDW-CV 16.4(H) <14.2 % 08/20/2018 8:18 [facility] RDW-SD 46.9(H) <46.0 fl 08/20/2018 8:18 [facility] PLT 121(L) 141 - 377 K/cmm 08/20/2018 8:18 [facility] MPV 9.5 9.5 - 12.7 fl 08/20/2018 8:18 [facility] Blood specimen (specimen) BLOOD SPECIMEN / Unknown 08/20/2018 7:12 EDT 08/20/2018 8:08 EDT A Praful Keller MD HEMATOLOGY & PF4 ORD ERABLES [facility] Organization Address City/State/ZIP Co de Phone Number [facility] [address] [place] [address] * CT HEAD WO CONTRAST (08/15/2018 15:44 [...] 70 - 180 nmol/L 08/17/2018 8:07 EDT [facility] Comment: (Note) . ADDITIONAL INFORMATION This test was developed and its performance characteristics determined by [facility] in a manner consistent with CLIA requirements. This test has not been cleared or approved by the U.S. Food and Drug Administration. Performed by: [facility]: [address], [place] [address] Fasting? Unknown 08/11/2018 10:17 EDT [facility] Blood specimen (specimen) BLOOD SPECIMEN / Unknown 08/11/2018 10:10 EDT 08/11/2018 10:17 EDT Sania THORNTON CHEMISTRY & BLOOD GA S ORDERABLES [facility] [address] [place] [address] * (ABNORMAL) AMMONIA (08/11/2018 10:10 EDT) Ammonia 61(H) <34 umol/L 08/11/2018 10:37 EDT [facility] Blood specimen (specimen) BLOOD SPECIMEN / Unknown 08/11/2018 10:10 EDT 08/11/2018 10:17 EDT Sania THORNTON CHEMISTRY & BLOOD GA S ORDERABLES Performing Organization Address City/[facility]/ZIP Co de Phone Number [facility] [address] [place] [address] * INPATIENT ADD-ON (08/10/2018 9:05 EDT) Tests to be added THIAMINE LEVEL 08/10/2018 9:04 EDT [facility] Comment:TSH Number for problems SBP3 08/10/2018 9:28 EDT [facility] Accession number NO PURPLE PROTECTED FROM LIGHT, TSH3 ALREADY RUN 08/09. SPOKE WITH JAX. 08/10/2018 9:28 EDT [facility] TOPOGRAPHY UNKNOWN / Unknown 08/10/2018 9:05 EDT 08/10/2018 9:27 EDT Sania THORNTON HEMATOLOGY & PF4 ORD ERABLES Performing Organization Address City/[facility]/ZIP Co de Phone Number [facility] [address] [place] [address] * (ABNORMAL) COMPLETE BLOOD COUNT AND DIFFERENTIAL (08/09/2018 21:16 EDT) WBC 2.59(L) 4.0 - 10.4 K/cmm 08/09/2018 21:56 EDT [facility] RBC 3.20(L) 4.36 - 5.78 M/cmm 08/09/2018 21:56 T [facility] Hemoglobin 8.3(L) 13.8 - 17.3 gm/dl 08/09/2018 21:56 EDT [facility] HCT 26.1(L) 39.5 - 50.2 % 08/09/2018 21:56 EDT [facility] MCV 82 81 - 95 fl 08/09/2018 21:56 EDT [facility] MCH 25.9(L) 27.6 - 33.0 pg 08/09/2018 21:56 [facility] [facility] Hypochromia 1+ 08/09/2018 21:56 [facility] MCHC 31.8(L) 32.8 - 36.4 gm/dl 08/09/2018 21:56 [facility] RDW-CV 15.5(H) <14.2 % 08/09/2018 21:56 [facility] RDW-SD 46.5(H) <46.0 fl 08/09/2018 21:56 [facility] PLT 105(L) 141 - 377 K/cm 08/09/2018 21:56 [facility] MPV 9.3(L) 9.5 - 12.7 fl 08/09/2018 21:56 [facility] % Neutrophils 53.2 % 08/09/2018 21:56 [facility] % Lymphocytes 29.0 % 08/09/2018 21:56 [facility] % Monocytes 13.1 % 08/09/2018 21:56 [facility] % Eosinophils 3.9 % 08/09/2018 21:56 [facility] % Basophils 0.4 % 08/09/2018 21:56 [facility] % Immature Grans 0.4 % 08/09/2018 21:56 [facility] ABS Neutrophils 1.38(L) 2.20 - 8.85 K/cm 08/09/2018 21:56 [facility] ABS Lymphs 0.75(L) 1.09 - 3.30 K/cm 08/09/2018 21:56 [facility] ABS Monocytes 0.34 0.1 - 0.8 K/cm 08/09/2018 21:56 [facility] ABS Eosinophils 0.10 0.03 - 0.61 K/cm 08/09/2018 21:56 [facility] ABS Basophils 0.01 0.01 - 0.11 K/formerly [facility] 08/09/2018 21:56 EDT [facility] ABS Immature Grans 0.01 0 - 0.06 K/cmm 08/09/2018 21:56 EDT [facility] Type of Diff: Automated 08/09/2018 21:56 EDT [facility] Blood specimen (specimen) BLOOD SPECIMEN / Unknown 08/09/2018 21:16 EDT 08/09/2018 21:47 EDT Sania THORNTON PACKAGES & DNA PROBE ORDERABLES Performing Organization Address City/[facility]/ZIP Co de Phone Number [facility] [address] [place] [address] * TSH (08/09/2018 21:16 EDT) TSH 1.09 0.47 - 4.68 uIU/ml 08/09/2018 22:52 EDT [facility] Comment: The results of this assay can be falsely lowered due to the consumption of Biotin. Blood specimen (specimen) BLOOD SPECIMEN / Unknown 08/09/2018 21:16 EDT 08/09/2018 21:47 EDT Sania THORNTON CHEMISTRY & BLOOD GA S ORDERABLES Performing Organization Address [facility] Co de Phone Number [facility] [address] [place] [address] * ALT (08/09/2018 21:16 EDT) ALT 23 21 - 72 U/L 08/09/2018 22:16 EDT [facility] Blood specimen (specimen) BLOOD SPECIMEN / Unknown 08/09/2018 21:16 EDT 08/09/2018 21:47 EDT Sania THORNTON CHEMISTRY & BLOOD GA S ORDERABLES Performing Organization Address [facility] Co de Phone Number [facility] [address] [place] [address] * AST (08/09/2018 21:16 EDT) AST 32 15 - 46 U/L 08/09/2018 22:16 EDT [facility] Blood specimen (specimen) BLOOD SPECIMEN / Unknown 08/09/2018 21:16 EDT 08/09/2018 21:47 EDT Sania Dayharish [facility] CHEMISTRY & BLOOD GA S ORDERABLES Performing Organization Address City/[facility]/ZIP Co de Phone Number [facility] [address] [place] [address] * ALBUMIN (08/09/2018 21:16 EDT) Albumin 3.7 3.4 - 4.9 g/dl 08/09/2018 22:16 EDT [facility] Blood specimen (specimen) BLOOD SPECIMEN / Unknown 08/09/2018 21:16 EDT 08/09/2018 21:47 EDT Sania Sifuentes [facility] CHEMISTRY & BLOOD GA S ORDERABLES Performing Organization Address City/[facility]/ZIP Co de Phone Number [facility] [address] [place] [address] * GGT (08/09/2018 21:16 EDT) GGT 29 15 - 73 U/L 08/09/2018 22:16 EDT [facility] Blood specimen (specimen) BLOOD SPECIMEN / Unknown 08/09/2018 21:16 EDT 08/09/2018 21:47 EDT Sania Dayharish [facility] CHEMISTRY & BLOOD GA S ORDERABLES Performing Organization Address City/[facility]/ZIP Co de Phone Number [facility] [address] [place] [address] * ALKALINE PHOSPHATASE (08/09/2018 21:16 EDT) Total Alkaline Phosphatase 81 38 - 126 U/L 08/09/2018 22:16 EDT [facility] Blood specimen (specimen) BLOOD SPECIMEN / Unknown 08/09/2018 21:16 EDT 08/09/2018 21:47 EDT Sania DANIELS CHEMISTRY & BLOOD GA S ORDERABLES Performing Organization Address City/[facility]/ZIP Co de Phone Number [facility] [address] [place] [address] * (ABNORMAL) CREATININE (08/09/2018 21:16 EDT) Creatinine 0.65(L) 0.66 - 1.25 mg/dl 08/09/2018 22:16 EDT [facility] GFR, Calculated 102 >60 ml/min/1.7 3m2 08/09/2018 22:16 EDT [facility] Comment: eGFR calculated using CKD-EPI equation for non Americans. Multiply eGFR by 1.16 for Americans. Blood specimen (specimen) BLOOD SPECIMEN / Unknown 08/09/2018 21:16 EDT 08/09/2018 21:47 EDT Sania DANIELS CHEMISTRY & BLOOD GA S ORDERABLES Performing Organization Address City/[facility]/ZIP Co de Phone Number [facility] [address] [place] [address] * BUN (08/09/2018 21:16 EDT) BUN 15 10 - 26 mg/dl 08/09/2018 22:16 EDT [facility] Blood specimen (specimen) BLOOD SPECIMEN / Unknown 08/09/2018 21:16 EDT 08/09/2018 21:47 EDT Sania Sifuentes [facility] CHEMISTRY & BLOOD GA S ORDERABLES [facility] [address] [place] [address] * ELECTROLYTES (08/09/2018 21:16 EDT) Sodium 138 136 - 145 mEq/L 08/09/2018 22:16 EDT [facility] Potassium 4.0 3.5 - 5.0 mEq/L 08/09/2018 22:16 EDT [facility] Chloride 106 96 - 110 mEq/L 08/09/2018 22:16 EDT [facility] CO2 24 22 - 32 mEq/L 08/09/2018 22:16 EDT [facility] Blood specimen (specimen) BLOOD SPECIMEN / Unknown 08/09/2018 21:16 EDT 08/09/2018 21:47 EDT Sania Sifuentes [facility] CHEMISTRY & BLOOD GA S ORDERABLES [facility] [address] [place] [address] * (ABNORMAL) SCREENING GLUCOSE (08/09/2018 21:16 EDT) Glucose, Screening 104(H) 70 - 100 mg/dl 08/09/2018 22:16 EDT [facility] Blood specimen (specimen) BLOOD SPECIMEN / Unknown 08/09/2018 21:16 EDT 08/09/2018 21:47 EDT Sania Sifuentes [facility] CHEMISTRY & BLOOD GA S ORDERABLES Performing Organization Address City/State/[facility] Co de Phone Number [facility] [address] [place] [address] documented in this encounter Visit Diagnoses Diagnosis Suicidal ideation- Primary Depression, unspecified depression type Substance abuse ([facility]) Other, mixed, or unspecified nondependent drug abuse, unspecified Suicidal ideation Other migraine with status migrainosus, not intractable Depression Depressive disorder, not elsewhere classified Substance abuse ([facility]) Other, mixed, or unspecified nondependent drug [...] 08/09/2018 documented in this encounter Care Teams Hide Cooking Operator Relationship Specialty Start Date End Date Laurie Wiggins MD PCP - General 05/08/18 03/25/19 documented as of this encounter
--- OUTSIDE RECORDS SUMMARY | 2024-01-20 15:53 | XMS_ITS | Encounter Summary ---
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) Procedures US HEPATOPORTAL VEIN DUPLEX Guicho Rosales MD [address] [place] [phone] Referral ID Status Reason Start Date Expiration Date Visits Re quested Visits Authorized [id number] Closed 03/25/2019 1 1 Encounter Details Date Type Department Care Team (Late st Contact Info) Description 02/23/2019 Orders Only [facility] [place] [address] Guicho Rosales MD [address] [place] [phone] Cirrhosis of liver not due to [...] Office Visit [facility] General Surgery - [address] [phone] Bon Gutierrez MD [address] [facility], [address] [place] [phone] 09/10/2024 10:00 EDT Appointment Shaina Mejia [address] [place] [address] documented as of this encounter Results * [...] KESSON Ped/Liver transplant liver measurement 12.30 cm TRIBAXSON Anatomical Region Laterality Modality Vascular Ultrasound Narrative [...] alcohol documented in this encounter Care Teams Fly Worker Relationship Specialty Start Date End Date Laurie Wiggins MD PCP - General 05/08/18 03/25/19 documented as of this encounter
--- OUTSIDE RECORDS SUMMARY | 2024-01-20 15:53 | XMS_ITS | Encounter Summary ---
Author Organization [facility] Address [address] [place] [address] Care Team Providers Care Payroll Consultant Name Role Phone Laurie Wiggins MD Primary Care Provider [phone] Reason for Visit * Reason Onset Date Comments Appointment Related 01/22/2019 Encounter Details Date Type Department Care Team (Late st Contact Info) Description 01/22/2019 Telephone [facility] Interventional Radiology - [address] [phone] Guicho Rosales MD [address] [place] [address] [address] [place] [address] Appointment Related Social History Tobacco [...] Office Visit [facility] General Surgery - [address] [id number] Bon Gutierrez MD [address] [place] [address], [address] [place] [phone] 09/10/2024 10:00 EDT Appointment Shaina Bergeron [address] [phone] documented as of this encounter Visit Diagnoses Not on filedocumented in this encounter Care Teams Payroll Consultant Relationship Specialty Start Date End Date Laurie Wiggins MD PCP - General 05/08/18 03/25/19 documented as of this encounter
--- OUTSIDE RECORDS SUMMARY | 2024-01-20 15:53 | XMS_ITS | Encounter Summary ---
Author Organization [facility] Address [address] [place] [address] Care Team Providers Care Solid Waste Analyst Name Role Phone Katia Blanco Primary Care Provider [phone] Reason for Referral * Medication Prior Authorization (Routine) - Closed Specialty Diagnoses / Procedures Referred By Contact Referred To Contact Gastroenterology and Hepatology Diagnoses Hepatic cirrhosis, unspecified hepatic cirrhosis type, unspecified whether ascites present (HCC-CMS) Encephalopathy, hepatic (HCC-CMS) Brody Duran MD PhD 111 [facility] [address] [place] [address] [place] [address] [place] [address] Referral ID Status Reason Start Date Expiration Date Visits Requested Visits Authorized [id number] Closed Medication Prior Authorization 05/15/2019 1 1 [...] liver without ascites (HCC-CMS) Guicho Rosales MD [address] [place] [address] [address] [place] [address] Brody Duran MD PhD [address] [place] [phone] Referral ID Status Reason Start Date Expiration Date Visits Requested Visits Authorized [id number] Specialty Report Received Specialty Services Required 04/24/2019 1 1 Encounter Details Date Type Department Care Team (Late st Contact Info) Description 05/15/2019 14:30 EST Office Visit [facility] Gastroenterology - [place] [phone] Brody Duran MD PhD [address] [place] [phone] Hepatic cirrhosis, unspecified hepatic cirrhosis type, [...] Duran MD - 05/15/2019 0000 EST [facility] GASTROENTEROLOGY AND HEPATOLOGY PROGRESS / FOLLOWUP NOTE - 05/15/2019 [place] [address] Dear Ms Blanco: This is to let [...] disorder and suicidalideation. He was hospitalized at [facility] in the spring, with gastrointestinal bleeding secondary [...] - Brody Duran MD,PhD dn Dictation ID: [id number] cc: Guicho Rosales MD, [facility] - Radiology [address] [place] [address] Katia Blanco [facility], [address] [address] documented in this encounter Plan of Treatment Upcoming Encounters Date Type Department Care Team (Late st Contact Info) Description 01/23/2024 10:00 EDT Office Visit [facility] General Surgery - [address] [id number] Bon Gutierrez MD 111 [facility], Level [address] [place] [address] 09/10/2024 10:00 EDT Appointment Shaina Bergeron Ultrasound [address] [place] [phone] Scheduled Referrals Name Type Priority Associated Diagnoses Order Schedule AMB MEDICATION PRIOR AUTHORIZATION Outpatient Referral Routine Hepatic cirrhosis, unspecified hepatic cirrhosis type, unspecified whether ascites present (HCC-CMS) Encephalopathy, hepatic (HCC-CMS) Ordered: 05/15/2019 documented as of this encounter Results * (ABNORMAL) ZINC (05/15/2019 14:57 EST) Zinc, S 0.56(L) 0.66 - 1.10 mcg/mL 05/16/2019 15:58 EST [facility] Comment: ADDITIONAL INFORMATION This test was developed and its performance characteristics determined by [facility] in a manner consistent with CLIA requirements. This test has not been cleared or approved by the U.S. Food and Drug Administration. Test Performed by: [facility] [address] [place] [address] Customer Experience Strategist: Kojo Madison M.D. Ph.D.; CLIA# [id number] Blood VENOUS BLOOD / Unknown Venipuncture / Unknown 05/15/2019 14:57 EST 05/15/2019 15:24 EST Brody Duran MD PhD CHEMISTRY & BLO OD GAS ORDERABLES Performing Organization Address City/State/[facility] Co de Phone Number [facility] [address] [place] [address] * (ABNORMAL) PROTIME (05/15/2019 14:57 EST) I.N.R. 1.2(H) 0.9 - 1.1 Ratio 05/15/2019 15:50 EST [facility] Pro Time 14.2(H) 10.3 - 13.4 secs 05/15/2019 15:50 EST [facility] Blood VENOUS BLOOD / Unknown Venipuncture / Unknown 05/15/2019 14:57 EST 05/15/2019 15:24 EST Narrative [facility] - 05/15/2019 15:50 EST Moderate Intensity Coumadin INR = 2.0-3.0 Adjustments in anticoagulant therapy dose should be based on the INR and NOT on the Protime. Brody Duran MD PhD HEMATOLOGY & PF 4 ORDERABLES Performing Organization Address City/[facility]/ZIP Co de Phone Number [facility] [address] [place] [address] * (ABNORMAL) COMPLETE BLOOD COUNT (05/15/2019 14:57 EST) WBC 3.38(L) 4.00 - 10.40 K/cmm 05/15/2019 15:34 [facility] RBC 4.30(L) 4.36 - 5.78 M/cmm 05/15/2019 15:34 [facility] Hemoglobin 11.3(L) 13.8 - 17.3 gm/dL 05/15/2019 15:34 [facility] HCT 35.2(L) 39.5 - 50.2 % 05/15/2019 15:34 [facility] MCV 82 81 - 95 fl 05/15/2019 15:34 [facility] MCH 26.3(L) 27.6 - 33.0 pg 05/15/2019 15:34 [facility] MCHC 32.1(L) 32.8 - 36.4 gm/dL 05/15/2019 15:34 [facility] RDW-CV 15.3(H) <14.2 % 05/15/2019 15:34 [facility] RDW-SD 45.0 <46.0 fl 05/15/2019 15:34 [facility] PLT 137(L) 141 - 377 K/cmm 05/15/2019 15:34 [facility] MPV 8.8(L) 9.5 - 12.7 fl 05/15/2019 15:34 [facility] Blood VENOUS BLOOD / Unknown Venipuncture / Unknown 05/15/2019 14:57 EST 05/15/2019 15:24 EST Brody Duran MD PhD HEMATOLOGY & PF 4 ORDERABLES Performing Organization Address City/[facility]/ZIP Co de Phone Number [facility] [address] [place] [address] * (ABNORMAL) COMPREHENSIVE METABOLIC PANEL (CMP) (05/15/2019 14:57 [facility]) Sodium 141 136 - 145 mEq/L 05/15/2019 15:53 [facility] Potassium 4.4 3.5 - 5.0 mEq/L 05/15/2019 15:53 [facility] Chloride 108 96 - 110 mEq/L 05/15/2019 15:53 [facility] CO2 Total 25 22 - 32 mEq/L 05/15/2019 15:53 [facility] Glucose 140(H) 70 - 100 mg/dL 05/15/2019 15:53 [facility] BUN 16 10 - 26 mg/dL 05/15/2019 15:53 [facility] Creatinine 0.82 0.66 - 1.25 mg/dL 05/15/2019 15:53 [facility] eGFR 93 >60 mL/min/1.7 3m2 05/15/2019 15:53 [facility] Comment:eGFR calculated crystal mclaughlin CKD-EPI equation for non- Americans. Multiply eGFR by 1.16 for patients. Total Protein 6.6 6.3 - 8.2 g/dL 05/15/2019 15:53 [facility] Albumin 3.7 3.4 - 4.9 g/dL 05/15/2019 15:53 [facility] Alkaline Phosphatase 75 38 - 126 U/L 05/15/2019 15:53 [facility] AST 34 15 - 46 U/L 05/15/2019 15:53 [facility] ALT 27 <50 U/L 05/15/2019 15:53 [facility] Bilirubin, Total 0.9 <1.4 mg/dL 05/15/19 20 15:53 [facility] Calcium 9.4 8.5 - 10.5 mg/dL 05/15/2019 15:53 [facility] Calculated Calcium 9.6 8.5 - 10.5 mg/dL 05/15/2019 15:53 [facility] Blood VENOUS BLOOD / Unknown Venipuncture / Unknown 05/15/2019 14:57 EST 05/15/2019 15:25 EST Narrative [facility] - 05/15/2019 15:53 EST 1 Brody Duran MD PhD CHEMISTRY & BLO OD GAS ORDERABLES [facility] [address] [place] [address] documented in this encounter Visit Diagnoses Diagnosis Hepatic cirrhosis, unspecified hepatic cirrhosis type, unspecified whether ascites present (HCC-CMS)- Primary Encephalopathy, hepatic (HCC-CMS) Hepatic encephalopathy documented in this encounter Care Teams Solid Waste Analyst Relationship Specialty Start Date End Date Katia Blanco F[place] [address] PCP - General 03/26/19 09/20/22 documented as of this encounter
--- OUTSIDE RECORDS SUMMARY | 2024-01-20 15:53 | XMS_ITS | Encounter Summary ---
Author Organization [facility] Address [address] [place] [address] Care Team Providers Care Take Out Waiter/Waitress Name Role Phone Laurie Wiggins MD Primary Care Provider [phone] Encounter Details Date Type Department Care Team (Late st Contact Info) Description 12/20/2018 Orders Only [facility] Interventional Radiology - [address] [address] Guicho Rosales MD [address] [place] [address], Level [address] [place] [phone] Social History Tobacco Use Types Packs/Day Years [...] Visit [facility] General Surgery - [address] [phone] Bon Gutierrez MD 111 [facility], Level [address] [place] [address] 09/10/2024 10:00 EDT Appointment Shaina Bergeron [address] [phone] documented as of this encounter Visit Diagnoses Not on filedocumented in this encounter Care Teams Take Out Waiter/Waitress Relationship Specialty Start Date End Date Laurie Wiggins MD PCP - General 05/08/18 03/25/19 documented as of this encounter
--- OUTSIDE RECORDS SUMMARY | 2024-01-20 15:53 | XMS_ITS | Encounter Summary ---
Author Organization [facility] Address [address] [place] [address] Care Team Providers Care Produce Assistant Name Role Phone Katia Blanco IMANI Primary Care Provider [phone] Reason for Visit * Reason Onset Date Comments Appointment Related 03/26/2019 Encounter Details Date Type Department Care Team (Late st Contact Info) Description 03/26/2019 Telephone [facility] Interventional Radiology - [address] [phone] Guicho Rosales MD [address] [place] [address] [address] [place] [address] Appointment Related Social History Tobacco [...] taking lots of lactalose was admitted to [facility] recently. Will call PCP for updated records and relay to RN and provider. documented in this encounter Plan of Treatment Upcoming Encounters Date Type Department Care Team (Late st Contact Info) Description 01/23/2024 10:00 EDT Office Visit [facility] General Surgery - [address] [address] Bon Gutierrez MD [address] [place] [address], [address] [place] [phone] 09/10/2024 10:00 EDT Appointment Shaina Mejia [address] [place] [phone] documented as of this encounter Visit Diagnoses Not on filedocumented in this encounter Care Teams Produce Assistant Relationship Specialty Start Date End Date Katia Blanco FNP [place] [address] PCP - General 03/26/19 09/20/22 documented as of this encounter
--- OUTSIDE RECORDS SUMMARY | 2024-01-20 15:53 | XMS_ITS | Encounter Summary ---
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) Procedures US HEPATOPORTAL VEIN DUPLEX Guicho Rosales MD [address] [place] [phone] Referral ID Status Reason Start Date Expiration Date Visits Re quested Visits Authorized [id number] Closed 03/25/2019 1 1 Reason for Visit * Vascular Lab (Routine) - Closed Specialty Diagnoses / Procedures Referred By Tad alcaraz Referred To Contact Diagnoses 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) Procedures US HEPATOPORTAL VEIN DUPLEX Guicho Rosales MD [address] [place] [phone] Referral ID Status Reason Start Date Expiration Date Visits Re quested Visits Authorized [id number] Closed 03/25/2019 1 1 Encounter Details Date Type Department Care Team (Latest Contact Info) Description 04/24/2019 8:12 EST - 04/24/2019 23:59 EST Hospital Encounter [place] [address] 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-[facility]) Discharge Disposition: Home or Self Care Social [...] Visit [facility] General Surgery - [address] [id number] Bon Gutierrez MD [address] [place] [address], Level [address] [place] [address] 09/10/2024 10:00 EDT Appointment Shaina Bergeron Ultrasound [address] [place] [address] documented as of this encounter Procedures Procedure [...] alcohol documented in this encounter Care Teams Amortization Schedule Clerk Relationship Specialty Start Date End Date Katia Blanco FNP [facility] [place] [address] PCP - General 03/26/19 09/20/22 documented as of this encounter
--- OUTSIDE RECORDS SUMMARY | 2024-01-20 15:53 | XMS_ITS | Encounter Summary ---
Author Organization [facility] Address [address] [place] [address] Care Team Providers Care Corporate Travel Expert Name Role Phone Katia Blanco Primary Care Provider [phone] Reason for Visit * Reason Onset Date Comments Medication Management 05/17/2019 Encounter Details Date Type Department Care Team (Late st Contact Info) Description 05/17/2019 Telephone [facility] Gastroenterology - [address] [address] Jennifer Real, bail agent Management Social History Tobacco Use Types Packs/Day [...] Encounter - Jennifer Real RN - 05/17/2019 0900 EST Patient is zinc deficient - please arrange for prescription for zinc sulfate (220 mg): take 3 daily- per Dr Duran. Prescription sent to pharmacy. Patient is aware. He will follow up with his cessation systems outreach specialist. documented in this encounter Plan of Treatment Upcoming Encounters Date Type Department Care Team (Late st Contact Info) Description 01/23/2024 10:00 EDT Office Visit [facility] General Surgery - [address] [address] Bon Gutierrez MD 111 [facility], Level 5 [place] [phone] 09/10/2024 10:00 EDT Appointment Shaina Mejia [address] [place], [place] 482716 documented as of this encounter Visit Diagnoses Not on filedocumented in this encounter Discontinued Medications Medication Sig Discontinue Reason Start Date End Da te zinc sulfate (ZINCATE) 220 (50) mg capsule Take 1 Cap by mouth 3 times daily. Reorder 05/17/2019 05/17/2019 documented as of this encounter Care Teams Corporate Travel Expert Relationship Specialty Start Date End Date Katia Blanco FNP [facility] [place] [address] PCP - General 03/26/19 09/20/22 documented as of this encounter
--- OUTSIDE RECORDS SUMMARY | 2024-01-20 15:54 | XMS_ITS | Encounter Summary ---
Author Organization [facility] Address [address] [place] [address] Care Team Providers Care Ruby On Rails Software Developer Name Role Phone Kamala Rosado MD Primary Care Provider [phone] Reason for Visit * Reason Comments Follow-up tx completed Encounter Details Date Type Department Care Team (Late st Contact Info) Description 02/18/2015 13:[address] [facility] Gastroenterology - [address] [id number] Brody Duran MD PhD [address] [place] [address], [address] [place] [address] Hepatic cirrhosis due to chronic hepatitis C infection ([facility]-HCC) (Primary Dx) Social History Tobacco Use [...] Brody Duran MD - 02/18/201520[address] [facility] GASTROENTEROLOGY AND HEPATOLOGY PROGRESS / FOLLOWUP NOTE - 02/18/2015 Kamala Rosado MD [address], [address] [place] [address] Rosado: This is to let [...] through the interventional radiology team here at [facility]. This should continue every 6 months. My [...] - Brody Duran MD,PhD cn Dictation ID: [id number] cc: Guicho Rosales MD, [facility] - Radiology [address] [place] [address] Kamala Rosado MD, [address], [address], [place] [address] * Brody Duran MD - 02/18/2015 1353 EST This office note has been dictated. documented in this encounter Plan of Treatment Upcoming Encounters Date Type Department Care Team (Late st Contact Info) Description 01/23/2024 10:[address] [facility] General Surgery - [facility] [address] [place], [place] 72[address] Bon Gutierrez MD 111 [facility], Level [address] [place] [address] 09/10/2024 10:00 EDT Appointment Shaina Rubio [address] [place] [address] documented as of this encounter Visit Diagnoses Diagnosis Hepatic cirrhosis due to chronic hepatitis C infection (HCC-[facility])- Primary documented in this encounter Discontinued Medications Medication Sig Discontinue Reason Start Date End Da te omeprazole (PRILOSEC) 20 mg capsule Take 20 mg by mouth daily as needed Patient Stopped Taking 02/18/2015 ibuprofen (MOTRIN) 200 mg tablet Take 400 mg by mouth every 8 hours as needed for Pain Patient Stopped Taking 02/18/2015 documented as of this encounter Care Teams Ruby On Rails Software Developer Relationship Specialty Start Date End Date Kamala Rosado MD [address] [address] PCP - General 10/05/13 10/19/15 documented as of this encounter
--- OUTSIDE RECORDS SUMMARY | 2024-01-20 15:54 | XMS_ITS | Encounter Summary ---
Author Organization [facility] Address [address] [place] [address] Care Team Providers Care Instructional Services Specialist Name Role Phone Kamala Rosado MD Primary Care Provider [phone] Reason for Visit * Reason Onset Date Comments Appointment Related 02/04/2015 Encounter Details Date Type Department Care Team (Late st Contact Info) Description 02/04/2015 Telephone [facility] Interventional Radiology - [address] [address] Mayank [place] Appointment Related Social History Tobacco [...] [facility] General Surgery - [facility] [address] [place], [place] 5159[address] Bon Gutierrez MD 111 [facility], [address] [place] [address] 09/10/2024 10:00 EDT Appointment Shaina Mejia [address] [place] [address] documented as of this encounter Visit Diagnoses Not on filedocumented in this encounter Care Teams Instructional Services Specialist Relationship Specialty Start Date End Date Kamala Rosado MD [address] [address] PCP - General 10/05/13 10/19/15 documented as of this encounter
--- OUTSIDE RECORDS SUMMARY | 2024-01-20 15:54 | XMS_ITS | Encounter Summary ---
Author Organization [facility] Address [address] [place] [address] Care Team Providers Care Health Lead Name Role Phone Elissa Alejo PA-C Primary Care Provider [phone] Encounter Details Date Type Department Care Team (Late st Contact Info) Description 12/27/2017 Results Only Imaging [facility] [place] [address] Guicho Rosales MD [address] [place] [address], [address] 1 [place] [phone] Social History Tobacco Use Types Packs/Day Years [...] [facility] - [address] 754[address] Bon Gutierrez MD 111 [facility], [address] 5 [place] [address] 09/10/2024 10:00 EDT Appointment Shaina Mejia 0 [place], [place] [address] documented as of this encounter Visit Diagnoses Not on filedocumented in this encounter Care Teams Health Lead Relationship Specialty Start Date End Date Elissa Alejo, PAMehreenC [address] [place] [address] MD [place] [address] PCP - General 11/09/16 05/07/18 documented as of this encounter
--- OUTSIDE RECORDS SUMMARY | 2024-01-20 15:54 | XMS_ITS | Encounter Summary ---
Author Organization [facility] Address [address] [place] [address] Care Team Providers Care Nuclear Power Reactor Operator Name Role Phone Kamala Rosado MD Primary Care Provider [phone] Encounter Details Date Type Department Care Team (Late st Contact Info) Description 05/23/2015 17:06 EST - 05/23/2015 22:00 [facility] Hospital Encounter [address] [address] Marianna Duarte, QUYNH [address] [address] Discharge Disposition: Home or Self [...] [facility] General Surgery - [address] 8850[address] Bon Gutierrez MD 111 [facility], [address] [place] [address] 09/10/2024 10:00 EDT Appointment Shaina Bergeron [address] 648[address] documented as of this encounter Visit Diagnoses Not on filedocumented in this encounter Care Teams Nuclear Power Reactor Operator Relationship Specialty Start Date End Date Kamala Rosado MD [address] [address] PCP - General 10/05/13 10/19/15 documented as of this encounter
--- OUTSIDE RECORDS SUMMARY | 2024-01-20 15:54 | XMS_ITS | Encounter Summary ---
Author Organization [facility] Address [address] [place] [address] Care Team Providers Care Arch Support Maker Name Role Phone Kamala Rosado MD Primary Care Provider [phone] Reason for Visit * Reason Comments Advice Only Encounter Details Date Type Department Care Team (Late st Contact Info) Description 02/18/2015 9:00 EST Office Visit [facility] Interventional Radiology - [address] [id number] Guicho Rosales MD [address] [place] [address], Level 1 [place] [address] Other cirrhosis of liver (CMS-HCC) [...] 01/23/2024 10:00 EDT Office Visit [facility] General Surgery - [address] 5229[address] Bon Gutierrez MD 111 [facility], Level [address] [place] [address] 09/10/2024 10:00 EDT Appointment Shaina Mejia [address] [place] [address] documented as of this encounter Procedures Procedure [...] 10:11 AM Clinical History/Comments: K74.69-Other cirrhosis of [id number]; TIPS placed February,. ?? Please obtain TIPS [...] 10:11 AM Clinical History/Comments: K74.69-Other cirrhosis of [id number]; TIPS placed February,. Please obtain TIPS flow [...] of ascites or varices Guicho Rosales MD [facility] US ORDER CLAUDIO documented in this encounter Visit Diagnoses Diagnosis Other cirrhosis of liver (HCC-CMS)- Primary documented in this encounter Discontinued Medications Medication Sig Discontinue Reason Start Date End Da te ledipasvir-sofosbuvir (HARVONI) 90-400 mg tablet Take 1 Tab by mouth daily. Therapy completed 05/15/2014 02/18/2015 documented as of this encounter Care Teams Arch Support Maker Relationship Specialty Start Date End Date Kamala Rosado MD [address] [address] PCP - General 10/05/13 10/19/15 documented as of this encounter
--- OUTSIDE RECORDS SUMMARY | 2024-01-20 15:54 | XMS_ITS | Encounter Summary ---
Author Organization [facility] Address [address] [place] [address] Care Team Providers Care Hearing Screen Coordinator Name Role Phone Laurie Wiggins MD Primary Care Provider [phone] Encounter Details Date Type Department Care Team (Late st Contact Info) Description 05/10/2018 Orders Only [facility] Interventional Radiology - [address] [address] Guicoh Rosales MD [address] [place] [address], Level 1 [place] [phone] Alcoholic cirrhosis of liver without ascites (HCC-CMS) [...] Office Visit [facility] General Surgery - [address] 7440[address] Bon Gutierrez MD 111 [facility], Level [address] [place] [address] 09/10/2024 10:00 EDT Appointment Shaina Mejia 0 [place], [place] [phone] documented as of this encounter Visit Diagnoses Diagnosis Alcoholic cirrhosis of liver without ascites (HCC-CMS)- Primary Alcoholic cirrhosis of liver documented in this encounter Care Teams Hearing Screen Coordinator Relationship Specialty Start Date End Date Laurie Wiggins MD PCP - General 05/08/18 03/25/19 documented as of this encounter
--- OUTSIDE RECORDS SUMMARY | 2024-01-20 15:54 | XMS_ITS | Encounter Summary ---
Author Organization [facility] Address [address] [place] [address] Care Team Providers Care Trombone Slide Assembler Name Role Phone Kamala Rosado MD Primary Care Provider Reason for Visit * Reason Onset Date Comments Appointment Related 02/13/2015 Encounter Details Date Type Department Care Team (Late st Contact Info) Description 02/13/2015 Telephone [facility] Interventional Radiology - [address] [address] Mayank [place] Appointment Related Social History Tobacco [...] Visit [facility] General Surgery - [address] 6937[address] Bon Gutierrez MD 111 [facility], Level [address] [place] [address] 09/10/2024 10:00 EDT Appointment Shaina Rubio [address] [address] [place], [place] [address] documented as of this encounter Visit Diagnoses Not on filedocumented in this encounter Care Teams Trombone Slide Assembler Relationship Specialty Start Date End Date Kamala Rosado MD [address] [address] PCP - General 10/05/13 10/19/15 documented as of this encounter
--- OUTSIDE RECORDS SUMMARY | 2024-01-20 15:54 | XMS_ITS | Encounter Summary ---
Author Organization [facility] Address [address] [place] [address] Care Team Providers Care Electrolytic Etcher Name Role Phone Elissa Alejo PA-C Primary Care Provider [phone] Encounter Details Date Type Department Care Team (Late st Contact Info) Description 11/09/2016 12:21 EDT - 11/09/2016 23:59 EDT Hospital Encounter [address] [address] Guicho Rosales MD [address] [place] [address] 1 [place] [phone] Discharge Disposition: Auto Discharge Social History Tobacco [...] Visit [facility] General Surgery - [address] 370921 Bon Gutierrez MD 111 [facility], Level [address] [place] [phone] 09/10/2024 10:00 EDT Appointment Shaina Bergeron [address] [address] [place], [place] [address] documented as of this encounter Visit Diagnoses Not on filedocumented in this encounter Care Teams Electrolytic Etcher Relationship Specialty Start Date End Date Elissa Alejo PA-C [address] [place], [place] [address] [address] MD [place] [address] PCP - General 11/09/16 05/07/18 documented as of this encounter
--- OUTSIDE RECORDS SUMMARY | 2024-01-20 15:54 | XMS_ITS | Encounter Summary ---
Author Organization [facility] Address [address] [place] [address] Care Team Providers Care Pipe Or Steam Fitter Furnace Installer Name Role Phone Kamala Rosado MD Primary Care Provider Encounter Details Date Type Department Care Team (Latest Contact Info) Description 02/17/2015 7:02 EST - 02/17/2015 23:59 EST Hospital Encounter [facility] - [address] [address] Unknown, Provider, Discharge Disposition: Home or Self [...] Code Departure Means Destination Home or Self Group Home documented in this encounter Plan of Treatment Upcoming Encounters Date Type Department Care Team (Late st Contact Info) Description 01/23/2024 10:00 EDT Office Visit [facility] General Surgery - [address] [address]82[address] Bon Gutiererz MD 111 [facility], [address] [place] [address] 09/10/2024 10:00 EDT Appointment Shaina Mejia 0 [place] [address] documented as of this encounter Visit Diagnoses Not on filedocumented in this encounter Care Teams Pipe Or Steam Fitter Furnace Installer Relationship Specialty Start Date End Date Kamala Rosado MD [address] [address] PCP - General 10/05/13 10/19/15 documented as of this encounter
--- OUTSIDE RECORDS SUMMARY | 2024-01-20 15:54 | XMS_ITS | Encounter Summary ---
Author Organization [facility] Address [address] [place] [address] Care Team Providers Care Dross Skimmer Name Role Phone Elissa Alejo PA-C Primary Care Provider [phone] Reason for Visit * Reason Onset Date Comments Appointment Related 12/06/2017 Encounter Details Date Type Department Care Team (Late st Contact Info) Description 12/06/2017 Telephone [facility] Interventional Radiology - [address] 865971 Guicho Rosales MD [address] [place] [address] 1 [place] [address] Appointment Related Social History Tobacco [...] Telephone Encounter - Lizy Hull - 12/06/2017 0575 EDT Called and spoke with patient, confirmed [...] Office Visit [facility] General Surgery - [facility] [address] [place], [place] [address] Bon Gutierrez MD 111 [facility], Level [address] [place] [address] 09/10/2024 10:00 EDT Appointment Shaina Bergeron Ultrasound [address] [place] [address] documented as of this encounter Visit Diagnoses Not on filedocumented in this encounter Care Teams Dross Skimmer Relationship Specialty Start Date End Date Elissa Alejo PA-C [address] [place] [address] MD [place] [address] PCP - General 11/09/16 05/07/18 documented as of this encounter
--- OUTSIDE RECORDS SUMMARY | 2024-01-20 15:54 | XMS_ITS | Encounter Summary ---
Author Organization [facility] Address [address] [place] [address] Care Team Providers Care Front End Software Engineer Name Role Phone Laurie Manzo MD Primary Care Provider [phone] Reason for Referral * Follow Up (Routine) - Receiving Office to Obtain Authorization Specialty Diagnoses / Procedures Referred By Contreinaldo t Referred To Contact Diagnoses Duodenal ulcer with hemorrhage Janie Sanabria MD [address] [place] [address] [address] P[address] [place] [id number] Referral ID Status Reason Start Date Expiration Date Visits Requested Visits Authorized [id number] Receiving Office to Obtain Authorization Continuity of Care 9 1 1 Question Answer Reason for Request: Hospital follow up Expected Discharge Date (Inpatient Only): 06/30/2018 Encounter Details Date Type Department Care Team (Late st Contact Info) Description 06/24/2018 15:44 EDT - 07/02/2018 13:41 EDT Hospital Encounter [facility] [address] [place] [address] Radha Gamboa MD [address] [address] Haile Zuniga MD [address] [address] Catia Elizondo MD [address] [address] Tl Hylton DO [address] [address] Hepatic cirrhosis, unspecified hepatic cirrhosis [...] hepatitis C, and pancreatitis who presented to [facility] for melena and lightheadedness. His hemoglobin had dropped to 8 from 14. He had aCT angiogram that did not show areas of active bleeding. He was transfused with 2 units of PRBC, but due to his prior transfusions, he was difficult to match and had to be transferred to [facility]. On arrival, GI was consulted and he [...] Established Patient Visit with Guicho Rosales MD [facility] Interventional Radiology - [facility] (--) [address] [place] [address], [address] [facility] [id number] Follow-up appointments and procedures Amb Consult/Follow Up [...] attestation - Tl Hylton DO - 07/18/2018 6127 EDT ATTENDING ATTESTATION: Date of service: 07/02/2018 I interviewed and examined the patient, reviewed pertinent labs, events, and notes as well as answered questions related to discharge. I agree with the findings and plan of care as documented above, with additions in blue. I personally spent <30 minutes counseling and preparing the patient for discharge and coordinating outpatient follow-up. Tl Hylton DO [facility] Inpatient Service 07/18/2018 16:57 documented [...] hepatitis C, pancreatitis who was transferred from [facility] for melena requiring blood transfusions and [...] TIPS. Doppler with patent TIPS. 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 S/p TIPS. Doppler with patent TIPS. - Plan to resume [employer] lactulose prior to discharge, rifaximin while actively having melena - Hold nadolol for now given bleeding - Follow up quant Hep C - undetected - will need q6 month RUQ US, CBC, CMP, INR Chronic medications - [employer] buproprion - Hold [employer] lisonpril VTE Prophylaxis: Holding in setting of GI bleed Discharge Plan: Likely home in coming days pending course and ongoing bleeding Consults: GI and IR consulted Zac Whitaker MD Internal Medicine PGY-2 Pager: [phone] Attending Attestation I interviewed and examined the [...] Procedure Nursing Note Report received from [facility] patient has received Versed 2.5 mg and [...] hepatitis C, pancreatitis who was transferred from [facility] for melena requiring blood transfusions and [...] Acetaminophen PRN - Reduce oxycodone to 2.5mg [id number] for throat pain after EGD Decompensated cirrhosis [...] US, CBC, CMP, INR Chronic medications - [employer] buproprion - Hold [employer] lisonpril VTE Prophylaxis: Holding in setting of [...] Carballo : 1955, AGE: 63 y.o. Room: [place] [address] Alma Carballo who is listed as Sabianism has received a visit from the Spiritual Care Departmenton 06/28/2018. Need/Assessment: ?? Patient shared his recent medical journey, which had brought him to [facility] from [facility], involving a serious GI bleed and need to receive several blood transfusions. ?? Patient describes himself as being alone. He recently moved to [facility] from [place] on his own. Patient says close family members have all and that he is on his own. Patient expresses thathe had not had time to make connections or community in his new town prior to this medical event - he's only moved in 2 weeks before. ?? Patient reports looking forward to connecting with a gnosticist in his new community (it's better than meeting people in a bar). Patient grew up Mennonite, but no longer identifies with that william (you have to work for your salvation, which patient does not affirm), and seeks an independent Religion gnosticist. Patient declined director of payroll's offer of prayer. ?? Patient [place] mila in fishing, [place] Intervention: ?? Softwood Faller offered compassionate presence and reflective listening. ?? Softwood Faller explored patient's spiritual background and sources of support and mila. Outcome: ?? Patient expressed appreciation for visit; no need for follow-up visit before expected discharge.(Softwood Faller left brochure should patient want to contact [facility]). Plan of Action: X No Follow up necessary - Needs met Continued Family Support Continued Support from Softwood Faller following patient Make a Referral to: Continued [...] Compassionate presence Chaplain Jc Stanford 131 Phone [phone] Spiritual Care is available 24 hours a day. Chaplains are available 24 hours a day. For routine consults please call and leave a message with the Spiritual Care Office ([phone]) and patients will be seen within 24 hours. For all emergent consults page the Cheondoism or Interfaith on-call Softwood Faller through [facility] ([phone]). * Ming Cottrell MD, MD - 06/28/2018 [...] Cottrell MD GI and Hepatology Fellow Pager [phone] * Minda Neumann RD - 06/28/2018 0914 EDT Brief Nutrition Contact Note: Patient is day #5 of minimal nutrition (has been NPO/clear liquids only since admission with one week of decreased PO intake [employer]), fluid intake has been minimal per review [...] course. 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 A small [...] hepatitis C, pancreatitis who was transferred from [facility] for melena requiring blood transfusions and [...] for now given bleeding Chronic medications - [employer] buproprion - Hold [employer] lisonpril VTE Prophylaxis: Holding in setting of [...] Type of Healthcare Directive: Durable power of real estate attorney for health care, Health care treatment directive Copy in Chart: Yes, previous copy on file @ [facility] DIRECTIVES FOR FINANCES: Directive For Finances: No TRANSPORTATION: Transportation: Self(Patient drives and tells that he has a brand new car) CULTURAL, MUSLIM and/or LANGUAGE factors affecting health care/discharge planning: [...] DME Provider: not at this time Pharmacy: [id number] - [place], [place] - [address] [facility] [address] [facility] ([facility]) - [place], [place] - [address] [place] [id number] Home Health: Not at this time Other: Patient requests a doctor letter verifying dates of hospitalization for his employer at discharge. POST HOSPITAL TRANSITION PLAN: Home to self care. Patient is independent with ADL's and IADL's prior to admission. Patient moved to [place] one month ago and has not totally [...] hepatitis C, pancreatitis who was transferred from [facility] for melena requiring blood transfusions and [...] for now given bleeding Chronic medications - [employer] buproprion - Hold [employer] lisonpril VTE Prophylaxis: Holding in setting of [...] Events: - admitted to medicine, transfer from [facility] - Oxycodone for pain - s/p [...] banding, TIPS procedure, pancreatitis who presented to [facility] with black stools transferred to [facility] for blood transfusions and further management. He [...] banding, TIPS procedure, pancreatitis who presented to [facility] ([facility]) with black stools transferred to [facility] for blood transfusions and further management. Has [...] Last BM 1 hour before presenting to [facility]. No nsaid use recently. Had one episode [...] in a home by himself, works at [employer]. Does not smoke, not EtoH use. Moved from [place] to [place] last month. Works at [employer] At [facility], patient found to have hgb drop from [...] Imaging CTA Abdomen Pelvis with Contrast at [facility] - TIPS intact - no acute abnormalities noted Assessment Alma Carballo is a 63 y.o. male with a PMHx of hepatitis C, decompensated cirrhosis complicated by esophageal varices s/p banding, TIPS procedure, pancreatitis who presented to [facility] with black stools transferred to [facility] for blood transfusions and further management. Plan [...] banding, TIPS procedure, pancreatitis who presented to [facility] ([facility]) with black stools transferred to [facility] for blood transfusions and further management. Has [...] Last BM 1 hour before presenting to [facility]. No nsaid use recently. Had one episode [...] in a home by himself, works at [employer]. Does not smoke, not EtoH use. Moved from [place] to [place] last month. Works at [employer] [facility], patient found to have hgb drop from [...] Imaging CTA Abdomen Pelvis with Contrast at [facility] - TIPS intact - no acute abnormalities noted Assessment Alma Carballo is a 63 y.o. male with a PMHx of hepatitis C, decompensated cirrhosis complicated by esophageal varices s/p banding, TIPS procedure, pancreatitis who presented to [facility] with black stools transferred to [facility] for blood transfusions and further management. Plan [...] Note Procedure: GDA embolization Date Performed: 06/30/2018 Radiologist/Network Control Operator(s): Magi/Gloria Sedation/Anesthesia: Versed/Fentanyl/Lidocaine Time Out: A time-out [...] file Gets together: Not on file Attends alevism service: Not on file Active member of [...] Curt Blanco MD Gastroenterology & Hepatology Fellow #[id number] * Gera Nguyễn MD, MD - 06/25/2018 0450 EDT Red Blood Cell Transfusion Reaction-Pathology Patient: Alma Carballo Transfusion Initiated (date/time): 06/25/18 at 01:07 Transfusion Terminated (date/time): 06/25/18 at 04:15 Blood Bank Notified (date/time): 06/25/18 at 04:45 Notified By: Phone call from Dr. Rabia Adorno Blood Product Detail: Red Blood Cells Donor/Unit Number: [id number] Amount Transfused: 211 mL Reaction Description: blood pressure change from 108/52 before transfusion to 86/43 Laboratory Investigation Laboratory workup? No - Per Dr. Arizmendi and Dr. Nguyễn Pre-transfusion records reviewed? Yes Clerical/electrical line mechanic errors found? No Post-transfusion blood specimen: Not [...] finished without S/Sof reaction. Unit number was [id number]. Will continue to monitor. documented in this encounter Plan of Treatment Upcoming Encounters Date Type Department Care Team (Late st Contact Info) Description 01/23/2024 10:00 EDT Office Visit [facility] General Surgery - [address] [address] Bon Gutierrez MD 111 [facility], [address] [place] [address] 09/10/2024 10:00 EDT Appointment [facility] [address] [place] [address] Pending Results Name Type Priority Associated Diagnoses [...] EDT) 07/05/2018 10:2 4 EDT Scan 2 Change Manager LAB INFO SERVICE AN D SUPPORT & PHONE RESULT * ECG REPORT - SCANNED (07/05/2018 10:24 EDT) 07/05/2018 10:2 4 EDT Scan 2 Change Manager PROCEDURE/MINOR TY GICAL ORDERABLES * (ABNORMAL) COMPLETE BLOOD COUNT (07/02/2018 5:52 EDT) WBC 3.70(L) 4.0 - 10.4 K/cmm 07/02/2018 6:17 [facility] RBC 2.48(L) 4.36 - 5.78 M/cmm 07/02/2018 6:17 [facility] Hemoglobin 7.9(L) 13.8 - 17.3 gm/dl 07/02/2018 6:17 [facility] HCT 22.3(L) 39.5 - 50.2 % 07/02/2018 6:17 [facility] MCV 90 81 - 95 fl 07/02/2018 6:17 [facility] MCH 31.9 27.6 - 33.0 pg 07/02/2018 6:17 [facility] MCHC 35.4 32.8 - 36.4 gm/dl 07/02/2018 6:17 [facility] RDW-CV 15.3(H) <14.2 % 07/02/2018 6:17 [facility] RDW-SD 49.6(H) <46.0 fl 07/02/2018 6:17 [facility] PLT 112(L) 141 - 377 K/cmm 07/02/2018 6:17 [facility] MPV 9.0(L) 9.5 - 12.7 fl 07/02/2018 6:17 [facility] Blood specimen (specimen) BLOOD SPECIMEN / Unknown 07/02/2018 5:52 EDT 07/02/2018 6:10 EDT Zac Whitaker MD HEMATOLOGY & PF4 OR DERABLES Performing Organization Address City/State/[facility] [[email or web address]] Co de Phone Number [facility] [address] [place] [address] * (ABNORMAL) COMPLETE BLOOD COUNT (07/01/2018 6:13 EDT) WBC 4.52 4.0 - 10.4 K/cmm 07/01/2018 6:37 [facility] RBC 2.42(L) 4.36 - 5.78 M/cmm 07/01/2018 6:37 [facility] Hemoglobin 7.6(L) 13.8 - 17.3 gm/dl 07/01/2018 6:37 [facility] HCT 21.9(L) 39.5 - 50.2 % 07/01/2018 6:37 [facility] MCV 91 81 - 95 fl 07/01/2018 6:37 [facility] MCH 31.4 27.6 - 33.0 pg 07/01/2018 6:37 [facility] MCHC 34.7 32.8 - 36.4 gm/dl 07/01/2018 6:37 [facility] RDW-CV 15.6(H) <14.2 % 07/01/2018 6:37 EDT [facility] RDW-SD 50.3(H) <46.0 fl 07/01/2018 6:37 EDT [facility] PLT 114(L) 141 - 377 K/cmm 07/01/2018 6:37 EDT [facility] MPV 8.9(L) 9.5 - 12.7 fl 07/01/2018 6:37 EDT [facility] Blood specimen (specimen) BLOOD SPECIMEN / Unknown 07/01/2018 6:13 EDT 07/01/2018 6:28 EDT Zac Whitaker MD HEMATOLOGY & PF4 OR DERABLES Performing Organization Address City/State/[facility] [[email or web address]] Co de Phone Number [facility] [address] [place] [phone] * IR EMBOLIZATION (06/30/2018 13:30 EDT) Anatomical [...] to gain percutaneous access into the right IT SALES EXECUTIVE via a micropuncture kit. The micropuncture Sheath was exchanged over a guidewire for a 5 Sammarinese access sheath. A SOS-35 Sammarinese catheter was negotiated into the abdominal aorta [...] to gain percutaneous access into the right IT SALES EXECUTIVE via a micropuncture kit. The micropuncture Sheath was exchanged over a guidewire for a 5 Sammarinese access sheath. A SOS-35 Sammarinese catheter was negotiated into the abdominal aorta [...] added CBD WITH DIFF 06/30/2018 11:27 T [facility] Number for problems [id number] 06/30/2018 11:35 T [facility] Accession number DIF TO [id number] 06/30/2018 11:35 EDT [facility] TOPOGRAPHY UNKNOWN / Unknown 06/30/2018 11:30 EDT 06/30/2018 11:32 EDT Zac Whitaker MD HEMATOLOGY & PF4 OR DERABLES [facility] [address] [place] [address] * (ABNORMAL) DIFFERENTIAL (06/30/2018 7:39 EDT) % Neutrophils 64.0 % 06/30/2018 11:51 EDT [facility] % Lymphocytes 20.4 % 06/30/2018 11:51 EDT [facility] % Monocytes 11.2 % [facility]/30[facility]2018 [facility] Eosinophils 3.4 % 06/30/2018 11:51 [facility] % Basophils 0.3 % 06/30/2018 11:51 [facility] % Immature Grans 0.7 % 06/30/2018 11:51 [facility] ABS Neutrophils 1.86(L) 2.20 - 8.85 K/cmm 06/30/2018 11:51 [facility] ABS Lymphs 0.59(L) 1.09 - 3.30 K/cmm 06/30/2018 11:51 [facility] ABS Monocytes 0.33 0.1 - 0.8 K/cmm 06/30/2018 11:51 [facility] ABS Eosinophils 0.10 0.03 - 0.61 K/cmm 06/30/2018 11:51 [facility] ABS Basophils 0.01 0.01 - 0.11 K/cmm 06/30/2018 11:51 [facility] ABS Immature Grans 0.02 0 - 0.06 K/cmm 06/30/2018 11:51 [facility] Type of Diff: Automated 06/30/2018 11:51 [facility] BLOOD SPECIMEN / Unknown 06/30/2018 7:39 EDT 06/30/2018 8:11 EDT Terrie Givens MD HEMATOLOGY & PF4 ORD ERABLES [facility] [address] [place] [phone] * (ABNORMAL) COMPLETE BLOOD COUNT (06/30/2018 7:39 EDT) WBC 2.91(L) 4.0 - 10.4 K/cmm 06/30/2018 8:17 [facility] RBC 2.44(L) 4.36 - 5.78 M/cmm 06/30/2018 8:17 [facility] Hemoglobin 7.8(L) 13.8 - 17.3 gm/dl 06/30/2018 8:17 [facility] HCT 22.4(L) 39.5 - 50.2 % 06/30/2018 8:17 [facility] MCV 92 81 - 95 fl 06/30/2018 8:17 [facility] MCH 32.0 27.6 - 33.0 pg 06/30/2018 8:17 [facility] MCHC 34.8 32.8 - 36.4 gm/dl 06/30/2018 8:17 [facility] RDW-CV 15.9(H) <14.2 % 06/30/2018 8:17 [facility] RDW-SD 51.8(H) <46.0 fl 06/30/2018 8:17 [facility] PLT 104(L) 141 - 377 K/cmm 06/30/2018 8:17 [facility] MPV 9.3(L) 9.5 - 12.7 fl 06/30/2018 8:17 [facility] Blood specimen (specimen) BLOOD SPECIMEN / Unknown 06/30/2018 7:39 EDT 06/30/2018 8:11 EDT Zac Whitaker MD HEMATOLOGY & PF4 OR DERABLES [facility] [address] [place] [address] * CREATININE (06/30/2018 7:39 EDT) Creatinine 0.66 0.66 - 1.25 mg/dl 06/30/2018 8:44 T [facility] GFR, Calculated 101 >60 ml/min/1.7 3m2 06/30/2018 8:44 [facility] Comment: eGFR calculated using CKD-EPI equation for non Americans. Multiply eGFR by 1.16 for Americans. Blood specimen (specimen) BLOOD SPECIMEN / Unknown 06/30/2018 7:39 EDT 06/30/2018 8:11 EDT Terrie Givens MD CHEMISTRY & BLOOD GA S ORDERABLES Performing Organization Address City/[facility] [[email or web address]] Co de Phone Number [facility] [address] [place] [address] * ELECTROLYTES (06/30/2018 7:39 EDT) Sodium 136 136 - 145 mEq/L 06/30/2018 8:44 EDT [facility] Potassium 4.2 3.5 - 5.0 mEq/L 06/30/2018 8:44 EDT [facility] Chloride 106 96 - 110 mEq/L 06/30/2018 8:44 EDT [facility] CO2 28 22 - 32 mEq/L 06/30/2018 8:44 EDT [facility] Blood specimen (specimen) BLOOD SPECIMEN / Unknown 06/30/2018 7:39 EDT 06/30/2018 8:11 EDT Terrie Givens MD CHEMISTRY & BLOOD GA S ORDERABLES Performing Organization Address [facility] [[email or web address]] Co de Phone Number [facility] [address] [place] [address] * CT ANGIO ABDOMEN AND PELVIS W/WO [...] 3.68(L) 4.0 - 10.4 K/cmm 06/29/2018 8:16 [facility] RBC 2.35(L) 4.36 - 5.78 M/cmm 06/29/2018 8:16 [facility] Hemoglobin 7.7(L) 13.8 - 17.3 gm/dl 06/29/2018 8:16 [facility] HCT 21.5(L) 39.5 - 50.2 % 06/29/2018 8:16 [facility] MCV 92 81 - 95 fl 06/29/2018 8:16 [facility] MCH 32.8 27.6 - 33.0 pg 06/29/2018 8:16 [facility] MCHC 35.8 32.8 - 36.4 gm/dl 06/29/2018 8:16 [facility] RDW-CV 16.3(H) <14.2 % 06/29/2018 8:16 [facility] RDW-SD 50.9(H) <46.0 fl 06/29/2018 8:16 [facility] PLT 108(L) 141 - 377 K/cmm 06/29/2018 8:16 [facility] MPV 9.1(L) 9.5 - 12.7 fl 06/29/2018 8:16 [facility] Blood specimen (specimen) BLOOD SPECIMEN / Unknown 06/29/2018 7:19 EDT 06/29/2018 8:05 EDT Zac Whitaker MD HEMATOLOGY & PF4 OR DERABLES [facility] [address] [place] [address] * CREATININE (06/29/2018 7:19 EDT) Creatinine 0.73 0.66 - 1.25 mg/dl 06/29/2018 8:23 EDT [facility] GFR, Calculated 97 >60 ml/min/1.7 3m2 06/29/2018 8:23 T [facility] Comment: eGFR calculated using CKD-EPI equation for non Americans. Multiply eGFR by 1.16 for Americans. Blood specimen (specimen) BLOOD SPECIMEN / Unknown 06/29/2018 7:19 EDT 06/29/2018 8:05 EDT Terrie Givens MD CHEMISTRY & BLOOD GA S ORDERABLES Performing Organization Address City/[facility] [[email or web address]] Co de Phone Number [facility] [address] [place] [address] * ELECTROLYTES (06/29/2018 7:19 EDT) Sodium 136 136 - 145 mEq/L 06/29/2018 8:23 T [facility] Potassium 4.5 3.5 - 5.0 mEq/L 06/29/2018 8:23 [facility] Chloride 104 96 - 110 mEq/L 06/29/2018 8:23 [facility] CO2 28 22 - 32 mEq/L 06/29/2018 8:23 T [facility] Blood specimen (specimen) BLOOD SPECIMEN / Unknown 06/29/2018 7:19 EDT 06/29/2018 8:05 EDT Terrie Givens MD CHEMISTRY & BLOOD GA S ORDERABLES Performing Organization Address City/[facility]/ZIP Co de Phone Number [facility] [address] [place] [address] * (ABNORMAL) COMPLETE BLOOD COUNT (06/28/2018 22:25 EDT) WBC 3.18(L) 4.0 - 10.4 K/cmm 06/28/2018 23:03 EDT [facility] RBC 2.29(L) 4.36 - 5.78 M/cmm 06/28/2018 23:03 [facility] Hemoglobin 7.5(L) 13.8 - 17.3 gm/dl 06/28/2018 23:03 [facility] HCT 21.5(L) 39.5 - 50.2 % 06/28/2018 23:03 [facility] MCV 94 81 - 95 fl 06/28/2018 23:03 [facility] MCH 32.8 27.6 - 33.0 pg 06/28/2018 23:03 [facility] MCHC 34.9 32.8 - 36.4 gm/dl 06/28/2018 23:03 [facility] RDW-CV 16.6(H) <14.2 % 06/28/2018 23:03 [facility] RDW-SD 50.8(H) <46.0 fl 06/28/2018 23:03 [facility] Anisocytosis 1+ 06/28/2018 23:03 [facility] PLT 103(L) 141 - 377 K/cmm 06/28/2018 23:03 [facility] MPV 9.3(L) 9.5 - 12.7 fl 06/28/2018 23:03 [facility] Nucleated RBC's 1 /100 WBC'S 9 23:03 [facility] Blood specimen (specimen) BLOOD SPECIMEN / Unknown 06/28/2018 22:25 EDT 06/28/2018 22:30 EDT Zac Whitaker MD HEMATOLOGY & PF4 OR DERABLES [facility] [address] [place] [address] * (ABNORMAL) COMPLETE BLOOD COUNT (06/28/2018 6:56 EDT) WBC 3.38(L) 4.0 - 10.4 K/cmm 06/28/2018 7:25 [facility] RBC 2.35(L) 4.36 - 5.78 M/cmm 06/28/2018 7:25 [facility] Hemoglobin 7.6(L) 13.8 - 17.3 gm/dl 06/28/2018 7:25 [facility] HCT 21.5(L) 39.5 - 50.2 % 06/28/2018 7:25 [facility] MCV 92 81 - 95 fl 06/28/2018 7:25 [facility] MCH 32.3 27.6 - 33.0 pg 06/28/2018 7:25 [facility] MCHC 35.3 32.8 - 36.4 gm/dl 06/28/2018 7:25 [facility] RDW-CV 16.3(H) <14.2 % 06/28/2018 7:25 [facility] RDW-SD 48.7(H) <46.0 fl 06/28/2018 7:25 [facility] PLT 96(L) 141 - 377 K/cmm 06/28/2018 7:25 [facility] MPV 9.2(L) 9.5 - 12.7 fl 06/28/2018 7:25 [facility] Nucleated RBC's 1 /100 WBC'S 9 7:25 [facility] Blood specimen (specimen) BLOOD SPECIMEN / Unknown 06/28/2018 6:56 EDT 06/28/2018 7:13 EDT Terrie Givens MD HEMATOLOGY & PF4 ORD ERABLES [facility] [address] [place] [address] * CREATININE (06/28/2018 6:56 EDT) Creatinine 0.86 0.66 - 1.25 mg/dl 06/28/2018 7:41 [facility] GFR, Calculated 91 >60 ml/min/1.7 3m2 06/28/2018 7:41 [facility] Comment: eGFR calculated using CKD-EPI equation for non Americans. Multiply eGFR by 1.16 for Americans. Blood specimen (specimen) BLOOD SPECIMEN / Unknown 06/28/2018 6:56 EDT 06/28/2018 7:13 EDT Terrie Givens MD CHEMISTRY & BLOOD GA S ORDERABLES Performing Organization Address [facility] de Phone Number [facility] [address] [place] [address] * (ABNORMAL) ELECTROLYTES (06/28/2018 6:56 EDT) Pathologist [facility] Sodium 135(L) 136 - 145 mEq/L 06/28/2018 7:41 EDT [facility] Potassium 3.9 3.5 - 5.0 mEq/L 06/28/2018 7:41 EDT [facility] Chloride 106 96 - 110 mEq/L 06/28/2018 7:41 EDT [facility] CO2 28 22 - 32 mEq/L 06/28/2018 7:41 EDT [facility] Blood specimen (specimen) BLOOD SPECIMEN / Unknown 06/28/2018 6:56 EDT 06/28/2018 7:13 EDT Terrie Givens MD CHEMISTRY & BLOOD GA S ORDERABLES Performing Organization Address [facility] de Phone Number [facility] [address] [place] [address] * HCV RNA DETECT QUANT (06/28/2018 6:56 EDT) [facility] HCV RNA Detect Quant Undetected Undetected IU/mL 06/29/2018 16:21 EDT [facility] Comment: Reference Range: ??Undetected The quantification range of this assay is 15 IU/mL to 100,000,000 IU/mL. Testing was performed by the [employer] Ampliprep/Mili TaqMan HCV v2.0 ([employer] Blood specimen (specimen) BLOOD SPECIMEN / Unknown 06/28/2018 6:56 EDT 06/28/2018 7:13 EDT Zac Whitaker MD CHEMISTRY & BLOOD G ORDERABLES [facility] [address] [place] [address] * (ABNORMAL) COMPLETE BLOOD COUNT (06/27/2018 17:53 EDT) WBC 3.30(L) 4.0 - 10.4 K/cmm 06/27/2018 18:32 [facility] RBC 2.31(L) 4.36 - 5.78 M/cmm 06/27/2018 18:32 [facility] Hemoglobin 7.5(L) 13.8 - 17.3 gm/dl 06/27/2018 18:32 [facility] HCT 21.5(L) 39.5 - 50.2 % 06/27/2018 18:32 [facility] MCV 93 81 - 95 fl 06/27/2018 18:32 [facility] MCH 32.5 27.6 - 33.0 pg 06/27/2018 18:32 [facility] MCHC 34.9 32.8 - 36.4 gm/dl 06/27/2018 18:32 [facility] RDW-CV 16.1(H) <14.2 % 06/27/2018 18:32 [facility] RDW-SD 50.4(H) <46.0 fl 06/27/2018 18:32 [facility] PLT 88(L) 141 - 377 K/cmm 06/27/2018 18:32 [facility] MPV 9.0(L) 9.5 - 12.7 fl 06/27/2018 18:32 [facility] Nucleated RBC's 1 /100 WBC'S 9 18:32 [facility] Blood specimen (specimen) BLOOD SPECIMEN / Unknown 06/27/2018 17:53 EDT 06/27/2018 18:08 EDT Terrie Givens MD HEMATOLOGY & PF4 ORD ERABLES Performing Organization Address City/[facility]/ZIP Co de Phone Number [facility] [address] [place] [address] * CREATININE (06/27/2018 6:52 EDT) Creatinine 0.89 0.66 - 1.25 mg/dl 06/27/2018 7:45 EDT [facility] GFR, Calculated 90 >60 ml/min/1.7 3m2 06/27/2018 7:45 EDT [facility] Comment: eGFR calculated using CKD-EPI equation for non Americans. Multiply eGFR by 1.16 for Americans. Blood specimen (specimen) BLOOD SPECIMEN / Unknown 06/27/2018 6:52 EDT 06/27/2018 7:19 EDT Terrie Givens MD CHEMISTRY & BLOOD GA S ORDERABLES Performing Organization Address [facility] [[email or web address]] Co de Phone Number [facility] [address] [place] [address] * ELECTROLYTES (06/27/2018 6:52 EDT) Sodium 136 136 - 145 mEq/L 06/27/2018 7:45 EDT [facility] Potassium 4.0 3.5 - 5.0 mEq/L 06/27/2018 7:45 EDT [facility] Chloride 108 96 - 110 mEq/L 06/27/2018 7:45 EDT [facility] CO2 25 22 - 32 mEq/L 06/27/2018 7:45 EDT [facility] Blood specimen (specimen) BLOOD SPECIMEN / Unknown 06/27/2018 6:52 EDT 06/27/2018 7:19 EDT Terrie Givens MD CHEMISTRY & BLOOD GA S ORDERABLES Performing Organization Address [facility] [[email or web address]] Co de Phone Number [facility] [address] [place] [address] * (ABNORMAL) COMPLETE BLOOD COUNT (06/27/2018 6:52 EDT) WBC 3.79(L) 4.0 - 10.4 K/cmm 06/27/2018 7:34 [facility] RBC 2.46(L) 4.36 - 5.78 M/cmm 06/27/2018 7:34 [facility] Hemoglobin 7.9(L) 13.8 - 17.3 gm/dl 06/27/2018 7:34 [facility] HCT 22.3(L) 39.5 - 50.2 % 06/27/2018 7:34 [facility] MCV 91 81 - 95 fl 06/27/2018 7:34 [facility] MCH 32.1 27.6 - 33.0 pg 06/27/2018 7:34 [facility] MCHC 35.4 32.8 - 36.4 gm/dl 06/27/2018 7:34 [facility] RDW-CV 16.4(H) <14.2 % 06/27/2018 7:34 [facility] RDW-SD 50.0(H) <46.0 fl 06/27/2018 7:34 [facility] PLT 85(L) 141 - 377 K/cmm 06/27/2018 7:34 [facility] MPV 9.3(L) 9.5 - 12.7 fl 06/27/2018 7:34 [facility] Nucleated RBC's 1 /100 WBC'S 9 7:34 [facility] Blood specimen (specimen) BLOOD SPECIMEN / Unknown 06/27/2018 6:52 EDT 06/27/2018 7:19 EDT Terrie Givens MD HEMATOLOGY & PF4 ORD ERABLES [facility] [address] [place] [address] * (ABNORMAL) COMPLETE BLOOD COUNT (06/26/2018 18:48 EDT) WBC 5.02 4.0 - 10.4 K/cmm 06/26/2018 19:10 [facility] RBC 2.03(L) 4.36 - 5.78 M/cmm 06/26/2018 19:10 [facility] Hemoglobin 6.7(LL) 13.8 - 17.3 gm/dl 06/26/2018 19:10 [facility] HCT 19.2(LL) 39.5 - 50.2 % 06/26/2018 19:10 [facility] MCV 95 81 - 95 fl 06/26/2018 19:10 [facility] MCH 33.0 27.6 - 33.0 pg 06/26/2018 19:10 [facility] MCHC 34.9 32.8 - 36.4 gm/dl 06/26/2018 19:10 [facility] RDW-CV 15.9(H) <14.2 % 06/26/2018 19:10 [facility] RDW-SD 52.3(H) <46.0 fl 06/26/2018 19:10 [facility] PLT 82(L) 141 - 377 K/cmm 06/26/2018 19:10 [facility] MPV 9.2(L) 9.5 - 12.7 fl 06/26/2018 19:10 [facility] Nucleated RBC's 1 /100 WBC'S 9 19:10 [facility] Blood specimen (specimen) BLOOD SPECIMEN / Unknown 06/26/2018 18:48 EDT 06/26/2018 18:59 EDT Terrie Givens MD HEMATOLOGY & PF4 ORD ERABLES [facility] [address] [place] [address] * ECG REPORT - SCANNED (06/26/2018 17:13 EDT) 06/26/2018 17:1 3 EDT Scan 2 Change Manager PROCEDURE/MINOR TY GICAL ORDERABLES * SURGICAL PATHOLOGY (06/26/2018 8:04 EDT) Pathology Report: SURGICAL PATHOLOGY REPORT Reports generated via electronic interface contain original data; however they are lacking the format of the original report. Caution should be taken when reading/interpret ing unformatted reports. Name: ? ALMA CARBALLO ? Accession #: ? [id number] ? : ? 1955 (Age: 63) ??M [...] (ASCP) 06/27/2018 8:17 AM End of Report [facility] 06/26/2018 8:04 EDT 06/26/2018 8:04 EDT Brody Murrell MD PhD PATHOLOGY ORDER CLAUDIO [facility] [address] [place] [address] * (ABNORMAL) COMPLETE BLOOD COUNT (06/26/2018 6:31 EDT) WBC 4.22 4.0 - 10.4 K/cmm 06/26/2018 7:10 [facility] RBC 2.29(L) 4.36 - 5.78 M/cmm 06/26/2018 7:10 [facility] Hemoglobin 7.4(L) 13.8 - 17.3 gm/dl 06/26/2018 7:10 [facility] HCT 21.0(L) 39.5 - 50.2 % 06/26/2018 7:10 [facility] MCV 92 81 - 95 fl 06/26/2018 7:10 [facility] MCH 32.3 27.6 - 33.0 pg 06/26/2018 7:10 [facility] MCHC 35.2 32.8 - 36.4 gm/dl 06/26/2018 7:10 [facility] RDW-CV 15.9(H) <14.2 % 06/26/2018 7:10 [facility] RDW-SD 50.1(H) <46.0 fl 06/26/2018 7:10 [facility] PLT 82(L) 141 - 377 K/cmm 06/26/2018 7:10 EDT [facility] MPV 10.1 9.5 - 12.7 fl 06/26/2018 7:10 T [facility] Nucleated RBC's 1 /100 WBC'S 9 7:10 T [facility] Blood specimen (specimen) BLOOD SPECIMEN / Unknown 06/26/2018 6:31 EDT 06/26/2018 6:51 EDT Terrie Givens MD HEMATOLOGY & PF4 ORD ERABLES Performing Organization Address City/[facility] [[email or web address] Co de Phone Number [facility] [address] [place] [address] * CREATININE (06/26/2018 6:31 EDT) Creatinine 0.87 0.66 - 1.25 mg/dl 06/26/2018 7:29 T [facility] GFR, Calculated 91 >60 ml/min/1.7 3m2 06/26/2018 7:29 T [facility] Comment: eGFR calculated using CKD-EPI equation for non Americans. Multiply eGFR by 1.16 for Americans. Blood specimen (specimen) BLOOD SPECIMEN / Unknown 06/26/2018 6:31 EDT 06/26/2018 6:51 EDT Terrie Givens MD CHEMISTRY & BLOOD GA S ORDERABLES Performing Organization Address [facility] [[email or web address]] Co de Phone Number [facility] [address] [place] [address] * ELECTROLYTES (06/26/2018 6:31 EDT) Sodium 137 136 - 145 mEq/L 06/26/2018 7:29 T [facility] Potassium 4.0 3.5 - 5.0 mEq/L 06/26/2018 7:29 T [facility] Chloride 110 96 - 110 mEq/L 06/26/2018 7:29 T [facility] CO2 25 22 - 32 mEq/L 06/26/2018 7:29 [facility] Blood specimen (specimen) BLOOD SPECIMEN / Unknown 06/26/2018 6:31 EDT 06/26/2018 6:51 EDT Terrie Givens MD CHEMISTRY & BLOOD GA S ORDERABLES Performing Organization Address [facility] de Phone Number [facility] [address] [place] [address] * (ABNORMAL) PROTIME (06/26/2018 6:31 EDT) Pro Time 15.5(H) 10.3 - 13.4 secs 06/26/2018 7:16 [facility] I.N.R. 1.3(H) 0.9 - 1.1 Ratio 06/26/2018 7:16 [facility] Comment: Moderate Intensity Coumadin INR = 2.0-3.0 Adjustments in anticoagulant therapy dose should be based upon the INR and NOT the Pro Time. Blood specimen (specimen) BLOOD SPECIMEN / Unknown 06/26/2018 6:31 EDT 06/26/2018 6:51 EDT Paul Strauss MD HEMATOLOGY & PF4 ORD ERABLES Performing Organization Address [facility] [[email or web address]] Co de Phone Number [facility] [address] [place] [address] * (ABNORMAL) COMPLETE BLOOD COUNT (06/26/2018 0:55 EDT) WBC 5.12 4.0 - 10.4 K/cmm 06/26/2018 1:17 [facility] RBC 2.31(L) 4.36 - 5.78 M/cmm 06/26/2018 1:17 [facility] Hemoglobin 7.5(L) 13.8 - 17.3 gm/dl 06/26/2018 1:17 [facility] HCT 21.1(L) 39.5 - 50.2 % 06/26/2018 1:17 [facility] MCV 91 81 - 95 fl 06/26/2018 1:17 [facility] MCH 32.5 27.6 - 33.0 pg 06/26/2018 1:17 [facility] MCHC 35.5 32.8 - 36.4 gm/dl 06/26/2018 1:17 [facility] RDW-CV 15.6(H) <14.2 % 06/26/2018 1:17 [facility] RDW-SD 49.9(H) <46.0 fl 06/26/2018 1:17 [facility] PLT 88(L) 141 - 377 K/cmm 06/26/2018 1:17 [facility] MPV 9.4(L) 9.5 - 12.7 fl 06/26/2018 1:17 [facility] Blood specimen (specimen) BLOOD SPECIMEN / Unknown 06/26/2018 0:55 EDT 06/26/2018 0:57 EDT Haile Zuniga MD HEMATOLOGY & PF4 OR DERABLES Performing Organization Address City/State/[facility] [[email or web address]] Co de Phone Number [facility] [address] [place] [address] * UPPER ENDOSCOPY PROCEDURE (06/26/2018) Anatomical Region [...] Blood specimen (specimen) Marianna Browne MD N[facility]SING [facility] ATMENT - BLOOD ADMINISTRATION * TRANSFUSE RED BLOOD CELLS (06/25/2018 23:15 EDT) Blood specimen (specimen) Marianna Browne MD [facility] ATMENT - BLOOD ADMINISTRATION * PREPARE RED BLOOD CELLS (06/25/2018 18:43 EDT) Product Code [id number] [facility] Donor Number [id number] U [facility] B[facility] Unit ABO A [facility] Unit Rh POS [facility] Unit Status TR^Transfuse [facility] Product Expiration Date [id number] [facility] Unit Blood Type Code 6200 [facility] Coding System [id number] [facility] Blood specimen (specimen) 06/25/2018 18:43 EDT Marianna Browne MD BLOOD BANK ORDERABLES [facility] * (ABNORMAL) COMPLETE BLOOD COUNT (06/25/2018 18:06 EDT) WBC 3.79(L) 4.0 - 10.4 K/cmm 06/25/2018 18:34 [facility] RBC 1.90(L) 4.36 - 5.78 M/cmm 06/25/2018 18:34 [facility] Hemoglobin 6.4(LL) 13.8 - 17.3 gm/dl 06/25/2018 18:34 [facility] HCT 17.5(LL) 39.5 - 50.2 % 06/25/2018 18:34 [facility] MCV 92 81 - 95 fl 06/25/2018 18:34 [facility] MCH 33.7(H) 27.6 - 33.0 pg 06/25/2018 18:34 [facility] MCHC 36.6(H) 32.8 - 36.4 gm/dl 06/25/2018 18:34 [facility] RDW-CV 15.4(H) <14.2 % 06/25/2018 18:34 [facility] RDW-SD 50.1(H) <46.0 fl 06/25/2018 18:34 [facility] PLT 72(L) 141 - 377 K/cmm 06/25/2018 18:34 [facility] MPV 9.2(L) 9.5 - 12.7 fl 06/25/2018 18:34 [facility] Blood specimen (specimen) BLOOD SPECIMEN / Unknown 06/25/2018 18:06 EDT 06/25/2018 18:26 EDT Terrie Givens MD HEMATOLOGY & PF4 ORD ERABLES Performing Organization Address City/State/[facility] [[email or web address] Co de Phone Number [facility] [address] [place] [id number] * (ABNORMAL) COMPLETE BLOOD COUNT (06/25/2018 14:18 EDT) WBC 4.18 4.0 - 10.4 K/cmm 06/25/2018 14:48 [facility] RBC 2.20(L) 4.36 - 5.78 M/cmm 06/25/2018 14:48 [facility] Hemoglobin 7.4(L) 13.8 - 17.3 gm/dl 06/25/2018 14:48 [facility] HCT 20.5(LL) 39.5 - 50.2 % 06/25/2018 14:48 [facility] MCV 93 81 - 95 fl 06/25/2018 14:48 [facility] MCH 33.6(H) 27.6 - 33.0 pg 06/25/2018 14:48 [facility] MCHC 36.1 32.8 - 36.4 gm/dl 06/25/2018 14:48 [facility] RDW-CV 15.6(H) <14.2 % 06/25/2018 14:48 EDT [facility] RDW-SD 50.7(H) <46.0 fl 06/25/2018 14:48 EDT [facility] PLT 77(L) 141 - 377 K/cmm 06/25/2018 14:48 EDT [facility] MPV 9.4(L) 9.5 - 12.7 fl 06/25/2018 14:48 EDT [facility] Blood specimen (specimen) BLOOD SPECIMEN / Unknown 06/25/2018 14:18 EDT 06/25/2018 14:32 EDT Marianna Browne MD HEMATOLOGY & PF4 ORDERABLES [facility] [address] [place] [address] * PREPARE RED BLOOD CELLS (06/25/2018 10:32 EDT) Product Code [id number] [facility] Donor Number [id number] U [facility] Unit [facility] [place] [facility] B[facility] Unit Rh POS [facility] [place] [facility] Unit Status TR^Transfuse [facility] Product Expiration Date [id number] [facility] Unit Blood Type Code 6200 [facility] Coding System [id number] [facility] Blood specimen (specimen) 06/25/2018 10:32 EDT Terrie Givens MD BLOOD BANK ORDERABLE S [facility] * CREATININE (06/25/2018 5:22 EDT) Creatinine 0.86 0.66 - 1.25 mg/dl 06/25/2018 6:24 EDT [facility] GFR, Calculated 91 >60 ml/min/1.7 3m2 06/25/2018 6:24 EDT [facility] Comment: eGFR calculated using CKD-EPI equation for non Americans. Multiply eGFR by 1.16 for Americans. Blood specimen (specimen) BLOOD SPECIMEN / Unknown 06/25/2018 5:22 EDT 06/25/2018 5:56 EDT Terrie Givens MD CHEMISTRY & BLOOD GA S ORDERABLES Performing Organization Address [facility] de Phone Number [facility] [address] [place] [address] * (ABNORMAL) ELECTROLYTES (06/25/2018 5:22 EDT) Sodium 141 136 - 145 mEq/L 06/25/2018 6:24 T [facility] Potassium 4.3 3.5 - 5.0 mEq/L 06/25/2018 6:24 T [facility] Chloride 113(H) 96 - 110 mEq/L 06/25/2018 6:24 T [facility] CO2 24 22 - 32 mEq/L 06/25/2018 6:24 T [facility] Blood specimen (specimen) BLOOD SPECIMEN / Unknown 06/25/2018 5:22 EDT 06/25/2018 5:56 EDT Terrie Givens MD CHEMISTRY & BLOOD GA S ORDERABLES Performing Organization Address [facility] de Phone Number [facility] [address] [place] [address] * (ABNORMAL) COMPLETE BLOOD COUNT (06/25/2018 5:22 EDT) WBC 4.33 4.0 - 10.4 K/cmm 06/25/2018 6:07 [facility] RBC 2.66(L) 4.36 - 5.78 M/cmm 06/25/2018 6:07 [facility] Hemoglobin 9.1(L) 13.8 - 17.3 gm/dl 06/25/2018 6:07 [facility] HCT 24.7(L) 39.5 - 50.2 % 06/25/2018 6:07 T [facility] MCV 93 81 - 95 fl 06/25/2018 6:07 T [facility] MCH 34.2(H) 27.6 - 33.0 pg 06/25/2018 6:07 [facility] MCHC 36.8(H) 32.8 - 36.4 gm/dl 06/25/2018 6:07 T [facility] RDW-CV 15.3(H) <14.2 % 06/25/2018 6:07 T [facility] RDW-SD 50.0(H) <46.0 fl 06/25/2018 6:07 [facility] PLT 93(L) 141 - 377 K/cmm 06/25/2018 6:07 [facility] MPV 9.3(L) 9.5 - 12.7 fl 06/25/2018 6:07 T [facility] Blood specimen (specimen) BLOOD SPECIMEN / Unknown 06/25/2018 5:22 EDT 06/25/2018 5:56 EDT Terrie Givens MD HEMATOLOGY & PF4 ORD ERABLES [facility] [address] [place] [address] * ALT (06/25/2018 5:22 EDT) ALT 27 21 - 72 U/L 06/25/2018 6:24 EDT [facility] Blood specimen (specimen) BLOOD SPECIMEN / Unknown 06/25/2018 5:22 EDT 06/25/2018 5:56 EDT Terrie Givens MD CHEMISTRY & BLOOD GA S ORDERABLES Performing Organization Address [facility] [[email or web address]] Co de Phone Number [facility] [address] [place] [address] * AST (06/25/2018 5:22 EDT) AST 21 15 - 46 U/L 06/25/2018 6:24 EDT [facility] Blood specimen (specimen) BLOOD SPECIMEN / Unknown 06/25/2018 5:22 EDT 06/25/2018 5:56 EDT Terrie Givens MD CHEMISTRY & BLOOD GA S ORDERABLES Performing Organization Address [facility] [[email or web address]] Co de Phone Number [facility] [address] [place] [address] * [employer] [employer]OSPHATASE (06/25/2018 5:22 EDT) Total Alkaline Phosphatase 45 38 - 126 U/L 06/25/2018 6:24 EDT [facility] Blood specimen (specimen) BLOOD SPECIMEN / Unknown 06/25/2018 5:22 EDT 06/25/2018 5:56 EDT Terrie Givens MD CHEMISTRY & BLOOD GA S ORDERABLES Performing Organization Address [facility] [[email or web address]] Co de Phone Number [facility] [address] [place] [address] * (ABNORMAL) BILIRUBIN, TOTAL (06/25/2018 5:22 EDT) Bilirubin, Total 1.8(H) <1.4 mg/dl 06/25/2018 6:24 EDT [facility] Blood specimen (specimen) BLOOD SPECIMEN / Unknown 06/25/2018 5:22 EDT 06/25/2018 5:56 EDT Terrie Givens MD CHEMISTRY & BLOOD GA S ORDERABLES Performing Organization Address [facility] [[email or web address]] Co de Phone Number [facility] [address] [place] [address] * TRANSFUSE RED BLOOD CELLS (06/25/2018 4:42 [...] BLOOD CELLS (06/24/2018 19:17 EDT) Product Code [id number] [facility] Donor Number [id number] U [facility] BLOOD BANK Unit ABO A [facility] Unit Rh POS [facility] Unit Status RE^Released From Crossmatch [facility] Product Expiration Date [id number] [facility] Unit Blood Type Code 6200 [facility] Coding System [id number] [facility] 06/24/2018 19:1 7 EDT Terrie Givens MD BLOOD BANK ORDERABLE S [facility] * PREPARE RED BLOOD CELLS (06/24/2018 19:17 EDT) Product Code [id number] [facility] Donor Number [id number] U [facility] BLOOD BANK Unit [facility] Unit Rh POS [facility]LOOD [facility] Unit Status RX^Transfused With Reaction [facility] Product Expiration Date [id number] [facility] Unit Blood Type Code 6200 [facility] Coding System [id number] [facility] Blood specimen (specimen) 06/24/2018 19:17 EDT Terrie Givens MD BLOOD BANK ORDERABLE S [facility] * PREPARE RED BLOOD CELLS (06/24/2018 18:31 EDT) Product Code [id number] [facility] Donor Number [id number] U [facility] BLOOD BANK Unit [facility] Unit Rh POS [facility] BLOOD [facility] Unit Status TR^Transfuse [facility] Product Expiration Date [id number] [facility] Unit Blood Type Code 6200 [facility] Coding System [id number] [facility] 06/24/2018 18:3 1 EDT Karrie Quesada MD MSc BLOOD BANK ORDER CLAUDIO Performing Organization Address City/[facility]/ZIP Co de Phone Number [facility] * SMEAR REVIEW (06/24/2018 17:28 EDT) Smear scan only: Slide was examined by a technologist to verify the WBC and/or platelet count. 06/24/2018 18:12 EDT [facility] BLOOD SPECIMEN / Unknown 06/24/2018 17:28 EDT 06/24/2018 17:40 EDT Terrie Givens MD HEMATOLOGY & PF4 ORD ERABLES Performing Organization Address [facility] [[email or web address]] Co de Phone Number [facility] [address] [place] [address] * (ABNORMAL) PROTIME (06/24/2018 17:28 EDT) Pro Time 15.1(H) 10.3 - 13.4 secs 06/24/2018 18:06 EDT [facility] I.N.R. 1.3(H) 0.9 - 1.1 Ratio 06/24/2018 18:06 EDT [facility] Comment: Moderate Intensity Coumadin INR = 2.0-3.0 Adjustments in anticoagulant therapy dose should be based upon the INR and NOT the Pro Time. Blood specimen (specimen) BLOOD SPECIMEN / Unknown 06/24/2018 17:28 EDT 06/24/2018 17:40 EDT Terrie Givens MD HEMATOLOGY & PF4 ORD ERABLES Performing Organization Address City/[facility] [[email or web address]] Co de Phone Number [facility] [address] [place] [address] * MAGNESIUM (06/24/2018 17:28 EDT) Pathologist [facility] Magnesium 1.9 1.7 - 2.8 mg/dl 06/24/2018 18:08 EDT [facility] Blood specimen (specimen) BLOOD SPECIMEN / Unknown 06/24/2018 17:28 EDT 06/24/2018 17:40 EDT Terrie Givens MD CHEMISTRY & BLOOD GA S ORDERABLES Performing Organization Address City/[facility] [[email or web address]] Co de Phone Number [facility] [address] [place] [address] * LACTIC ACID (06/24/2018 17:28 EDT) Pathologist [facility] Lactic Acid 1.4 <2.0 mmol/L 06/24/2018 18:08 T [facility] Blood specimen (specimen) BLOOD SPECIMEN / Unknown 06/24/2018 17:28 EDT 06/24/2018 17:40 EDT Terrie Givens MD CHEMISTRY & BLOOD GA S ORDERABLES Performing Organization Address [facility] [[email or web address]] Co de Phone Number [facility] [address] [place] [address] * (ABNORMAL) COMPLETE BLOOD COUNT (06/24/2018 17:28 EDT) [facility] WBC 5.42 4.0 - 10.4 K/cmm 06/24/2018 18:11 [facility] RBC 2.50(L) 4.36 - 5.78 M/cmm 06/24/2018 17:55 [facility] Hemoglobin 8.5(L) 13.8 - 17.3 gm/dl 06/24/2018 17:55 [facility] HCT 23.5(L) 39.5 - 50.2 % 06/24/2018 17:55 [facility] MCV 94 81 - 95 fl 06/24/2018 17:55 [facility] MCH 34.0(H) 27.6 - 33.0 pg 06/24/2018 17:55 [facility] MCHC 36.2 32.8 - 36.4 gm/dl 06/24/2018 17:55 EDT [facility] RDW-CV 13.9 <14.2 % 06/24/2018 17:55 EDT [facility] RDW-SD 46.5(H) <46.0 fl 06/24/2018 17:55 EDT [facility] PLT 91(L) 141 - 377 K/cmm 06/24/2018 18:11 EDT [facility] MPV 9.3(L) 9.5 - 12.7 fl 06/24/2018 18:11 EDT [facility] Blood specimen (specimen) BLOOD SPECIMEN / Unknown 06/24/2018 17:28 EDT 06/24/2018 17:40 EDT Terrie Givens MD HEMATOLOGY & PF4 ORD ERABLES Performing Organization Address [facility] [[email or web address]] Co de Phone Number [facility] [address] [place] [address] * ANTIBODY IDENTIFICATION (06/24/2018 17:21 EDT) Antibody Identification Anti-E Anti-c (little) [facility] 06/24/2018 17:2 1 EDT Terrie Givens MD BLOOD BANK TESTS Performing Organization Address City/[facility]/ZIP Co de Phone Number [facility] * TYPE AND SCREEN (06/24/2018 17:21 EDT) ABO A [facility] Rh Factor Positive [facility] Antibody Screen Positive [facility] Specimen Expires: 06/27/2018 @ 23:59 [facility] 06/24/2018 17:2 1 EDT Terrie Givens MD BLOOD BANK TESTS Performing Organization Address City/[facility]/ZIP Co de Phone Number [facility] * EKG 12-LEAD (06/24/2018 17:18 EDT) 06/24/2018 17:1 8 EDT Narrative [facility] E[facility] - 06/26/2018 17:10 EDT ? [facility] ? Test Date: ?2018-06-24 Pat Name: ? ALMA CARBALLO ?Department: ?? [address] ? Room: ? SB466 Gender: ? Male ? Science Technician: ?? [id number] : ?1955 ? Requested By: GIVENS TERRIE Order Number: [id number] ? Reading MD: ?? CHIRAG SCOTT MD ? Measurements Intervals ?[place] ? Rate: ? 65 ? P: ?19 [place]: ? 164 ?QRS: ?1 QRSD: ? 77 ? T: ?76 QT: ? 416 ? QTc: ?433 ? Interpretive Statements SINUS RHYTHM NONSPECIFIC T-WAVE ABNORMALITY No previous ECG available for comparison I reviewed the tracing and have either agreed or edited the findings in this report. Electronically Signed On 06-26-2018 17:10:06 EDT by CHIRAG SCOTT MD. Procedure Note Chirag Scott MD - 06/26/2018 [facility] Test Date: 2018-06-24 Pat Name: ALMA CARBALLO Department: [address] Room: SB466 Gender: Male Science Technician: [id number] : 1955 Requested By: TOSHA FALCON Order Number: [id number] Jimmie MD: CHIRAG SCOTT MD Measurements Intervals [place] Rate: 65 P: 19 [place]: 164 QRS: 1 QRSD: 77 T: 76 QT: 416 QTc: 433 Interpretive Statements SINUS RHYTHM NONSPECIFIC T-WAVE ABNORMALITY No previous ECG available for comparison I reviewed the tracing and have either agreed or edited the findings inthis report. Electronically Signed On 06-26-2018 17:10:06 EDT by CHIRAG STEVENSON. Terrie Givens MD CARDIAC ECG ORDERABL ES [facility] EKG documented in this encounter Visit [...] Intraprocedure Given 06/30/2018 13:09 EDT 2.5 mg ibbjhce-byleqacru-fjlbudslsmdxgbc (MAGIC MOUTHWASH) oral suspension 15 mL 15 [...] 06/24/2018 documented in this encounter Care Teams Front End Software Engineer Relationship Specialty Start Date End Date Laurie Manzo MD PCP - General 05/08/18 03/25/19 documented as of this encounter
--- OUTSIDE RECORDS SUMMARY | 2024-01-20 15:54 | XMS_ITS | Encounter Summary ---
Author Organization [facility] Address [address] [place] [address] Care Team Providers Care First Cook Name Role Phone Laurie Wiggins MD Primary Care Provider [phone] Reason for Visit * Reason Onset Date Comments Discuss Possible Transfer 06/24/2018 Encounter Details Date Type Department Care Team (Late st Contact Info) Description 06/24/[address] [phone] Radha Gamboa MD [address] [address] Discuss Possible Transfer Social History [...] IM Hospitalist PPS: Dong Caller: Dr. 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 He is HD stable, but Hgb dropped from 13 on 06/[address] Zuniga is requesting transfer to [facility] due to need for blood transfusion in patient who is difficult to match due to multiple previous transfusions. Unfortunately, we do not have any beds available today; next bed expected to be available in [address] [place]un[place] [facility] Pt is not currently accepted for transfer to [facility], but [facility] team will be in touch if further discussion is needed. Radha Gamboa MD, MPH documented in this encounter Plan of Treatment Upcoming Encounters Date Type Department Care Team (Late st Contact Info) Description 01/23/2024 10:00 EDT Office Visit [facility] General Surgery - [address] [phone] Bon Gutierrez MD 111 [facility], Level [address] [place] [phone] 09/10/2024 10:00 EDT Appointment Shaina Mejia [address] [place] [phone] documented as of this encounter Visit Diagnoses Not on filedocumented in this encounter Care Teams First Cook Relationship Specialty Start Date End Date Laurie Wiggins MD PCP - General 05/08/18 03/25/19 documented as of this encounter
--- OUTSIDE RECORDS SUMMARY | 2024-01-20 15:54 | XMS_ITS | Encounter Summary ---
Author Organization [facility] Address [address] [place] [address] Care Team Providers Care Landscape Crew Member Name Role Phone Sari Salgado MD Primary Care Provider [phone] Encounter Details Date Type Department Care Team (Late st Contact Info) Description 10/21/2015 8:32 EDT - 10/21/2015 23:59 [place] [address] Guicho Rosales MD [address] [place] [address] [address] [place] [phone] Discharge Disposition: Auto Discharge Social History Tobacco [...] [facility] General Surgery - [address] [phone] Bon Gutierrez MD [address] [place] [address], [address] [place] [phone] 09/10/2024 10:00 EDT Appointment Shaina Mejia [address] [place] [address] documented as of this encounter Visit Diagnoses Not on filedocumented in this encounter Care Teams Landscape Crew Member Relationship Specialty Start Date End Date Sari Salgado MD PCP - General 10/21/15 11/07/16 documented as of this encounter
--- OUTSIDE RECORDS SUMMARY | 2024-01-20 15:54 | XMS_ITS | Encounter Summary ---
Author Organization [facility] Address [address] [place] [address] Care Team Providers Care Sound System Installer Name Role Phone Kamala Rosado MD Primary Care Provider [phone] Encounter Details Date Type Department Care Team (Late st Contact Info) Description 02/17/2015 Phlebotomy Only [facility] [address] [place] [address] Sports Physiotherapist, Outpatient Chronic hepatitis C (CMS-HCC) ([facility]-CMS) (Primary Dx) Social History Tobacco Use Types [...] Info) Description 01/23/2024 10:00 EDT Office Visit [facility] General Surgery - [facility] [address] [place], [place] [address] Bon Gutierrez MD 111 [facility], [address] [place] [phone] 09/10/2024 10:00 EDT Appointment Shaina Bergeron Ultrasound 0 [place] [address] documented as of this encounter Procedures Procedure Name Priority Date/Time Associated Diagnosis Comments HCV RNA DETECT QUANT Routine 02/17/2015 7:07 EST Chronic hepatitis C (CMS-HCC) (HCC-CMS) documented in this encounter Results * HCV RNA DETECT QUANT (02/17/2015 7:07 EST) HCV RNA Detect Quant Undetected IU/mL 02/18/2015 13:50 EST [facility] Comment: Reference Range: ??Undetected The quantification range of this assay is 15 IU/mL to 100,000,000 IU/mL. Testing was performed by the Mili Ampliprep/Mili TaqMan HCV v2.0 ([employer] Blood specimen (specimen) BLOOD SPECIMEN / Unknown 02/17/2015 7:07 EST 02/17/2015 7:39 EST Brody Duran MD PhD CHEMISTRY & BLO OD GAS ORDERABLES [facility] [address] [place] [address] documented in this encounter Visit Diagnoses Diagnosis Chronic hepatitis C (HCC-CMS)- Primary Chronic hepatitis C without mention of hepatic coma documented in this encounter Care Teams Sound System Installer Relationship Specialty Start Date End Date Kamala Rosado MD [address] [address] PCP - General 10/05/13 10/19/15 documented as of this encounter
--- OUTSIDE RECORDS SUMMARY | 2024-01-20 15:54 | XMS_ITS | Encounter Summary ---
Author Organization [facility] Address [address] [place] [address] Care Team Providers Care Shank Carrier Name Role Phone Mario Marquez MD Primary Care Provider [phone] Encounter Details Date Type Department Care Team (Late st Contact Info) Description 05/23/2015 Results Only [facility] [phone] Marianna Duarte, QUYNH [address] [phone] Social History Tobacco Use Types [...] [facility] General Surgery - [address] [phone] Bon Gutierrez MD [address] [place] [address], [address] [place] [address] 09/10/2024 10:00 EDT Appointment Shaina Bergeron [address] [address] documented as of this encounter [...] ? ALMA CARBALLO ? Accession #: ? [id number] ? : ? 1955 (Age: 59) ??M [...] Connell 05/23/2015 4:[address] [facility] 05/23/2015 15:0 1 EST 05/23/2015 15:01 EST Marianna BEAUCHAMP PATHOLOGY ORDERABL ES [facility] [address] [place] [address] documented in this encounter Visit Diagnoses Not on filedocumented in this encounter Care Teams Shank Carrier Relationship Specialty Start Date End Date Mario Marquez MD [address] [address] PCP - General 10/05/13 10/19/15 documented as of this encounter
--- OUTSIDE RECORDS SUMMARY | 2024-01-20 15:54 | XMS_ITS | Encounter Summary ---
Author Organization [facility] Address [address] [place] [address] Care Team Providers Care Weight Control Lecturer Name Role Phone Kamala Rosado MD Primary Care Provider [phone] Encounter Details Date Type Department Care Team (Late st Contact Info) Description 02/18/2015 7:16 EST - 02/18/2015 23:59 EST Hospital Encounter [address] [address] Guicho Rosales MD [address] [place] [address] 1 [place] [phone] Discharge Disposition: Auto Discharge Social History Tobacco [...] [facility] General Surgery - [address] [address] Bon Gutierrez MD 111 [facility], [address] [place] [phone] 09/10/2024 10:00 EDT Appointment Shaina [address] [place], [place] 940[address] documented as of this encounter Visit Diagnoses Not on filedocumented in this encounter Care Teams Weight Control Lecturer Relationship Specialty Start Date End Date Kamala Rosado MD [address] [address] PCP - General 10/05/13 10/19/15 documented as of this encounter
--- OUTSIDE RECORDS SUMMARY | 2024-01-20 15:54 | XMS_ITS | Encounter Summary ---
Author Organization [facility] Address [address] [place] [address] Care Team Providers Care Leisure Studies Professor Name Role Phone Elissa Alejo PA-C Primary Care Provider [phone] Reason for Visit * Reason Onset Date Comments Patient Information Update 01/02/2018 Encounter Details Date Type Department Care Team (Late st Contact Info) Description 01/02/2018 Telephone [facility] Interventional Radiology - [facility] [address] [place] [address] Melissa Munroe, RN [address] [place] [address] Patient Information Update Social History Tobacco Use [...] [facility] General Surgery - [address] [address] Bon Gutierrez MD [address] [place] [address], Level [address] [place] [phone] 09/10/2024 10:00 EDT Appointment Shaina Bergeron [address] [phone] documented as of this encounter Visit Diagnoses Not on filedocumented in this encounter Care Teams Leisure Studies Professor Relationship Specialty Start Date End Date Elissa Alejo PA-C [address] [place] [address] MD [place] [phone] PCP - General 11/09/16 05/07/18 documented as of this encounter
--- OUTSIDE RECORDS SUMMARY | 2024-01-20 15:54 | XMS_ITS | Encounter Summary ---
Author Organization [facility] Address [address] [place] [address] Care Team Providers Care Beef Cattle Specialist Name Role Phone Elissa Alejo PA-C Primary Care Provider [phone] Reason for Visit * Reason Onset Date Comments Appointment Related 10/27/2017 [facility] Encounter Details Date Type Department Care Team (Late st Contact Info) Description 10/27/2017 Telephone [facility] Interventional Radiology - [address] [address] Guicho Rosales MD [address] [place] [address], [place], Level [address] [place] [address] Appointment Related (CLINIC FOLLOW UP [...] [facility] General Surgery - [address] [address] Bon Gutierrez MD 111 [facility], [address] [place] [phone] 09/10/2024 10:00 EDT Appointment Shaina Bergeron [address] [address] [place], [place] 0235[address] documented as of this encounter Visit Diagnoses Not on filedocumented in this encounter Care Teams Beef Cattle Specialist Relationship Specialty Start Date End Date Elissa Alejo PA-C [address] [facility] [place] [address] MD [place] [phone] PCP - General 11/09/16 05/07/18 documented as of this encounter
--- OUTSIDE RECORDS SUMMARY | 2024-01-20 15:54 | XMS_ITS | Encounter Summary ---
Author Organization [facility] Address [address] [place] [phone] Care Team Providers Care Dry Cleaning Checker Name Role Phone Elissa Alejo PA-C Primary Care Provider [phone] Reason for Visit * Reason Onset Date Comments Appointment Related 12/06/2017 Encounter Details Date Type Department Care Team (Late st Contact Info) Description 12/06/2017 Telephone [facility] Interventional Radiology - [facility] [address] [place] [address] Melissa Munroe, RN [address] [place] [address] Appointment Related Social History Tobacco Use Types [...] Description 01/23/2024 10:00 EDT Office Visit [facility] General Surgery - [address] [address] Bon Gutierrez MD 111 [facility], [address] [place] [phone] 09/10/2024 10:00 EDT Appointment Shaina Bergeron [address] [phone] documented as of this encounter Visit Diagnoses Not on filedocumented in this encounter Care Teams Dry Cleaning Checker Relationship Specialty Start Date End Date Elissa Alejo PA-C [address] [facility] [place] [address] MD [place] [phone] PCP - General 11/09/16 05/07/18 documented as of this encounter
--- OUTSIDE RECORDS SUMMARY | 2024-01-20 15:54 | XMS_ITS | Encounter Summary ---
Author Organization [facility] Address [address] [place] [address] Care Team Providers Care Career Center Advisor Name Role Phone Kamala Rosado MD Primary Care Provider [phone] Reason for Visit * Reason Onset Date Comments Other 06/13/2015 Encounter Details Date Type Department Care Team (Late st Contact Info) Description 06/13/2015 Telephone [facility] [place] [address] Estela Dean Other Social History Tobacco Use [...] called to give us new address in [place]. He wants to keep his care here with Dr. Rosales. Heis scheduled for 09/01 but may change too October instead. documented in this encounter Plan of Treatment Upcoming Encounters Date Type Department Care Team (Late st Contact Info) Description 01/23/2024 10:00 EDT Office Visit [facility] General Surgery - [address] [phone] Bon Gutierrez MD 111 [facility], [address] [place] [phone] 09/10/2024 10:00 EDT Appointment Shaina Bergeron [address] [place], [place] [address] documented as of this encounter Visit Diagnoses Not on filedocumented in this encounter Care Teams Career Center Advisor Relationship Specialty Start Date End Date Kamala Rosado MD [address] [address] PCP - General 10/05/13 10/19/15 documented as of this encounter
--- OUTSIDE RECORDS SUMMARY | 2024-01-20 15:54 | XMS_ITS | Encounter Summary ---
Author Organization [facility] Address [address] [place] [address] Care Team Providers Care Coding Machine Operator Name Role Phone Kamala Rosado MD Primary Care Provider [phone] Reason for Visit * Reason Onset Date Comments Results 11/25/2014 End of HCV treat ment labs Encounter Details Date Type Department Care Team (Late st Contact Info) Description 11/25/2014 Telephone [facility] - [facility] [address] [place] [address] Curt Mejia [facility] [address] [place] [address] Results (End of HCV treatment labs) Social [...] Notes * Telephone Encounter - Curt Mejia [facility] - 11/25/2014 0932 EDT Reviewed HCV RNA [...] EDT Office Visit [facility] General Surgery - [address] [id number] Bon Gutierrez MD [address] [place] [address], Level 5 [place] [phone] 09/10/2024 10:00 EDT Appointment Shaina Mejia [address] [place] [address] [phone] documented as of this encounter Results * HCV RNA DETECT QUANT (02/17/2015 7:07 EST) HCV RNA Detect Quant Undetected IU/mL 02/18/2015 13:50 EST [facility] Comment: Reference Range: ??Undetected The quantification range of this assay is 15 IU/mL to 100,000,000 IU/mL. Testing was performed by the Mili Ampliprep/Mili TaqMan HCV v2.0 ([employer] Blood specimen (specimen) BLOOD SPECIMEN / Unknown 02/17/2015 7:07 EST 02/17/2015 7:39 EST Brody Duran MD PhD CHEMISTRY & BLO OD GAS ORDERABLES [facility] [address] [place] [address] documented in this encounter Visit Diagnoses Diagnosis Chronic hepatitis C without mention of hepatic coma- Primary documented in this encounter Care Teams Coding Machine Operator Relationship Specialty Start Date [place] [address] PCP - General 10/05/13 10/19/15 documented as of this encounter
--- OUTSIDE RECORDS SUMMARY | 2024-01-20 15:54 | XMS_ITS | Encounter Summary ---
Author Organization [facility] Address [address] [place] [address] Care Team Providers Care Cardiovascular Surgical Tech Name Role Phone Elissa Alejo PA-C Primary Care Provider [phone] Laurie Wiggins MD Primary Care Provider [phone] Reason for Visit * Reason Onset Date Comments Appointment Related 12/30/2017 outgoing ref erral for follow up Encounter Details Date Type Department Care Team (Late st Contact Info) Description 12/30/2017 Telephone [facility] Interventional Radiology - [address] [address] Guicho Rosales MD [address] [place] [address] Level 1 [place] [address] Appointment Related (outgoing referral for [...] No 11/09/2016 Cognitive Status Response Date of [facility] ent Because of a physical, menta l, or emotional condition, does this person have serious difficulty concentrating, remembering, or making decisions? No 11/09/2016 documented as of this encounter Miscellaneous Notes * Telephone Encounter - Lizy Hull - 12/30/2017 1439 EDT Contacted office of listed PCP to refer patient back to primary for follow up care regarding TIPS According to outside plant technician at [facility], the patient has never been seen by Elissa Alejo, and isnot an established patient in their office. Will reach out to provider and nursing staff and try to find different PCP documentation. documented in this encounter Plan of Treatment Upcoming Encounters Date Type Department Care Team (Late st Contact Info) Description 01/23/2024 10:00 EDT Office Visit [facility] General Surgery - [address] 448311 Bon Gutierrez MD 111 [facility], Level 5 [place] [phone] 09/10/2024 10:00 EDT Appointment Shaina Bergeron [place] [address]70[address] [place], [place] 794076 documented as of this encounter Visit Diagnoses Not on filedocumented in this encounter Care Teams Cardiovascular Surgical Tech Relationship Specialty Start Date End Date Elissa Alejo PA-C [address] [facility] [place] [address] [place] [phone] PCP - General 11/09/16 05/07/18 Laurie Wiggins MD [address] [facility] [address] [place] [phone] PCP - General 05/08/18 03/25/19 documented as of this encounter
--- OUTSIDE RECORDS SUMMARY | 2024-01-20 15:54 | XMS_ITS | Encounter Summary ---
Author Organization [facility] Address [address] [place] [address] Care Team Providers Care Tunnel Kiln Operator Name Role Phone Elissa Alejo PA-C Primary Care Provider [phone] Reason for Visit * Reason Comments Follow-up Tips 01/28/2014 Encounter Details Date Type Department Care Team (Late st Contact Info) Description 11/09/2016 15:00 EDT Office Visit [facility] Interventional Radiology - [address] [address] Guicho Rosales MD [address] [place] [address], [place], Level 1 [place] [address] Other cirrhosis of liver (CMS-HCC) [...] this encounter Patient Instructions * Patient Instructions* Lziy Hull - 11/09/2016 15:00 EDT We will [...] by Dr. Duran. He now lives in [place]. Patient Active Problem List Diagnosis ??? Chronic [...] [facility] General Surgery - [facility] [address] [place], [place] 9166[address] Bon Gutierrez MD 111 [facility], Level 5 [place] [address] 09/10/2024 10:00 EDT Appointment Shaina Bergeron [address] [place], [place] 351266 documented as of this encounter Visit Diagnoses Diagnosis Other cirrhosis of liver (HCC-CMS)- Primary documented in this encounter Historical Medications * This list may reflect changes made after this encounter. Medication Sig Dispensed Refills Start Date End Date buPROPion (WELLBUTRIN XL) 300 mg XL tablet Take 300 mg by mouth daily. 06/24/2018 added in this encounter Care Teams Tunnel Kiln Operator Relationship Specialty Start Date End Date Elissa Alejo, PA-C [address] [place] [address] [place] [phone] PCP - General 11/09/16 05/07/18 documented as of this encounter
--- OUTSIDE RECORDS SUMMARY | 2024-01-20 15:54 | XMS_ITS | Encounter Summary ---
Author Organization [facility] Address [address] [place] [address] Care Team Providers Care Banking Representative Name Role Phone Elissa Alejo PA-C Primary Care Provider [phone] Reason for Visit * Reason Onset Date Comments Appointment Related 12/26/2017 Cancel 12/27 US and OV Encounter Details Date Type Department Care Team (Late st Contact Info) Description 12/26/2017 Telephone [facility] Interventional Radiology - [address] [address] Guicho Rosales MD 111 [facility] Level 1 [place] [address] Appointment Related (Cancel 12/27 US [...] [facility] General Surgery - [address] 526121 Bon Gutierrez MD 111 [facility], Level 5 [place] [address] 09/10/2024 10:00 EDT Appointment Shaina Bergeron [address] [phone] documented as of this encounter Visit Diagnoses Not on filedocumented in this encounter Care Teams Banking Representative Relationship Specialty Start Date End Date Elissa Alejo PA-C [address] [place] [address] [place] [phone] PCP - General 11/09/16 05/07/18 documented as of this encounter
--- OUTSIDE RECORDS SUMMARY | 2024-01-20 15:54 | XMS_ITS | Encounter Summary ---
Author Organization [facility] Address [address] [place] [address] Care Team Providers Care Ncqa Specialist Name Role Phone Kamala Rosado MD Primary Care Provider [phone] Reason for Visit * Reason Onset Date Comments Results 02/19/2015 asking for HCV r esults Encounter Details Date Type Department Care Team (Late st Contact Info) Description 02/19/2015 Telephone [facility] Gastroenterology - [facility] [address] [place] [address] Curt Mejia [facility] [address] [place] [address] Results (asking for HCV results ) Social [...] Encounter - Curt Mejia [facility] - 02/19/2015 1141 EST Reviewed [...] - [facility] General Surgery - [address] 0557[address] Bon Gutierrez MD [address] [place] [address], Level 5 [place] [address] 09/10/2024 10:00 EDT Appointment Shaina Mejia [address] [place] [address] documented as of this encounter Visit Diagnoses Not on filedocumented in this encounter Care Teams Ncqa Specialist Relationship Specialty Start Date End Date Kamala Rosado MD [address] [address] PCP - General 10/05/13 10/19/15 documented as of this encounter
--- OUTSIDE RECORDS SUMMARY | 2024-01-20 15:54 | XMS_ITS | Encounter Summary ---
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 [...] EDT Office Visit [facility] General Surgery - [facility] [address] [place], [place] 8[address] Bon Gutierrez MD [address] [facility], Level 5 [place] [address] 09/10/2024 10:00 EDT Appointment Shaina Bergeron [address] [address] documented as of this encounter Visit Diagnoses [...] 09/12/2018 added in this encounter Care Teams Roto Mixer Operator Relationship Specialty Start Date End Date Laurie Wiggins MD PCP - General 05/08/18 03/25/19 documented as of this encounter
--- OUTSIDE RECORDS SUMMARY | 2024-01-20 15:54 | XMS_ITS | Encounter Summary ---
Author Organization [facility] Address [address] [place] [address] Care Team Providers Care Post Office Markup Clerk Name Role Phone Sari Salgado MD Primary Care Provider [phone] Reason for Referral * Radiology Services (Routine) - Closed Specialty Diagnoses / Procedures [facility] Referred To Contact Diagnoses Alcoholic cirrhosis of liver without ascites (HCC-CMS) Procedures RAD US DOPPLER VISCERAL LIMITED Guicho Rosales MD [address] [place] [phone] Referral ID Status Reason Start Date Expiration Date Visits Re quested Visits Authorized [id number] Closed 10/21/2015 1 1 Reason for Visit * Reason Comments Follow-up Encounter Details Date Type Department Care Team (Late st Contact Info) Description 10/21/2015 10:30 EDT Office Visit [facility] Interventional Radiology - [address] 503331 Guicho Rosales MD [address] [place] [address] Alcoholic cirrhosis of liver without ascites [...] hepatic encephalopathy. 6 monthsago, he moved to [place], but he wants to return to [place] annually to monitor his TIPS. Patient Active [...] Info) Description 01/23/2024 10:00 EDT Office Visit [facility] General Surgery - [facility] [address] [place], [place] 294641 Bon Gutierrez MD 111 [facility], Level 5 [place] [address] 09/10/2024 10:00 EDT Appointment Shaina Rubio Ultrasound [address] [place], [place] [phone] documented as of this encounter Procedures Procedure [...] and Symptoms/Comments: ??K70.30-Alcoholic cirrhosis of liver without [id number]; TIPS placed February 2014. Technique: Grayscale, color [...] and Symptoms/Comments: K70.30-Alcoholic cirrhosis of liver without [id number]-85; TIPS placed February 2014. Technique: Grayscale, color [...] mouth. added in this encounter Care Teams Post Office Markup Clerk Relationship Specialty Start Date End Date Sari Salgado MD PCP - General 10/21/15 11/07/16 documented as of this encounter
--- OUTSIDE RECORDS SUMMARY | 2024-01-20 15:54 | XMS_ITS | Encounter Summary ---
Author Organization [facility] Address [address] [place] [address] Care Team Providers Care Manager Neonatal Name Role Phone Elissa Alejo PA-C Primary Care Provider [phone] Reason for Visit * Reason Onset Date Comments Appointment Related 11/02/2017 Encounter Details Date Type Department Care Team (Late st Contact Info) Description 11/02/[address] [facility] Interventional Radiology - [facility] [address] [place] [address] Melissa Munroe, RN [address] [place] [address] Appointment Related Social History Tobacco Use Types [...] [facility] General Surgery - [address] 037381 Bon Gutierrez MD 111 [facility], Level 5 [place] [phone] 09/10/2024 10:00 EDT Appointment Shaina Bergeron [address] [address] [place], [place] 6[address]306 documented as of this encounter Visit Diagnoses Not on filedocumented in this encounter Care Teams Manager Neonatal Relationship Specialty Start Date End Date Elissa Alejo PAMehreenC [address] [place] [address] [place] [phone] PCP - General 11/09/16 05/07/18 documented as of this encounter
--- OUTSIDE RECORDS SUMMARY | 2024-01-20 15:54 | XMS_ITS | Encounter Summary ---
Author Organization [facility] Address [address] [place] [address] Care Team Providers Care Edger Feeder Name Role Phone Laurie Wiggins MD Primary Care Provider [phone] Reason for Visit * Reason Onset Date Comments Appointment Related 06/14/2018 follow up Encounter Details Date Type Department Care Team (Late st Contact Info) Description 06/14/2018 Telephone [facility] Interventional Radiology - [address] 544311 Guicho Rosales MD [address] [place] [address] 1 [place] [address] Appointment Related (follow up ) [...] [facility] - [address] 617961 Bon Gutierrez MD [address] [place] [address], Level 5 [place] [address] 09/10/2024 10:00 EDT Appointment Shaina Bergeron Ultrasound [address] [place] [address] documented as of this encounter Visit Diagnoses Not on filedocumented in this encounter Care Teams Edger Feeder Relationship Specialty Start Date End Date Laurie Wiggins MD PCP - General 05/08/18 03/25/19 documented as of this encounter
--- OUTSIDE RECORDS SUMMARY | 2024-01-20 15:55 | XMS_ITS | Encounter Summary ---
Author Organization [facility] Address [address] [place] [address] Care Team Providers Care Army Officer Name Role Phone Kamala Rosado MD Primary Care Provider [phone] Encounter Details Date Type Department Care Team (Late st Contact Info) Description 08/29/2014 Phlebotomy Only [facility] [address] [place] [address] Ratchet Setter, Outpatient Chronic hepatitis C without mention of [...] Visit [facility] General Surgery - [facility] [address] [place], [place] [phone] Bon Gutierrez MD 111 [facility], Level 5 [place] [address] 09/10/2024 10:00 EDT Appointment Shaina Bergeron Ultrasound [address] [place] [address] documented as of this encounter Procedures Procedure Name Priority Date/Time Associated Diagnosis Comments HCV RNA DETECT QUANT Routine 08/29/2014 11:24 EDT Chronic hepatitis C without mention of hepatic coma documented in this encounter Results * HCV RNA DETECT QUANT (08/29/2014 11:24 EDT) HCV RNA Detect Quant Undetected IU/mL 09/03/2014 14:19 EDT [facility] Comment: Reference Range: ??Undetected The quantification range of this assay is 15 IU/mL to 100,000,000 IU/mL. Testing was performed by the Mili Ampliprep/Mili TaqMan HCV v2.0 ([employer] Blood specimen (specimen) BLOOD SPECIMEN / Unknown 08/29/2014 11:24 EDT 08/29/2014 11:44 EDT Brody Duran MD PhD CHEMISTRY & BLO OD GAS ORDERABLES [facility] [address] [place] [address] documented in this encounter Visit Diagnoses Diagnosis Chronic hepatitis C without mention of hepatic coma- Primary documented in this encounter Care Teams Army Officer Relationship Specialty Start Date End Date Kamala Rosado MD [address] [address] PCP - General 10/05/13 10/19/15 documented as of this encounter
--- OUTSIDE RECORDS SUMMARY | 2024-01-20 15:55 | XMS_ITS | Encounter Summary ---
Author Organization [facility] Address [address] [place] [address] Care Team Providers Care Linux Network Administrator Name Role Phone Kamala Rosado MD Primary Care Provider [phone] Encounter Details Date Type Department Care Team (Late st Contact Info) Description 06/28/2014 Phlebotomy Only [facility] [address] [place] [address] Lsat Instructor, Outpatient Chronic hepatitis C without mention of [...] [facility] General Surgery - [facility] [address] [place], [place] 3438[address] Bon Gutierrez MD 111 [facility], Level 5 [place] [address] 09/10/2024 10:00 EDT Appointment Shaina Bergeron Ultrasound [address] [place] [address] documented as of this encounter Procedures Procedure Name Priority Date/Time Associated Diagnosis Comments HCV RNA DETECT QUANT Routine 06/28/2014 9:17 EDT Chronic hepatitis C without mention of hepatic coma documented in this encounter Results * HCV RNA DETECT QUANT (06/28/2014 9:17 EDT) HCV RNA Detect Quant Undetected IU/mL 07/01/2014 14:54 EDT [facility] Comment: Reference Range: ??Undetected The quantification range of this assay is 15 IU/mL to 100,000,000 IU/mL. Testing was performed by the Mili Ampliprep/Mili TaqMan HCV v2.0 ([employer] Blood specimen (specimen) BLOOD SPECIMEN / Unknown 06/28/2014 9:17 EDT 06/28/2014 9:33 EDT Brody Duran MD PhD CHEMISTRY & BLO OD GAS ORDERABLES [facility] [address] [place] [address] documented in this encounter Visit Diagnoses Diagnosis Chronic hepatitis C without mention of hepatic coma- Primary documented in this encounter Care Teams Linux Network Administrator Relationship Specialty Start Date End Date Kamala Rosado MD [address] [address] PCP - General 10/05/13 10/19/15 documented as of this encounter
--- OUTSIDE RECORDS SUMMARY | 2024-01-20 15:55 | XMS_ITS | Encounter Summary ---
Author Organization [facility] Address [address] [place] [address] Care Team Providers Care Count Team Clerk Name Role Phone Kamala Rosado MD Primary Care Provider [phone] Encounter Details Date Type Department Care Team (Late st Contact Info) Description 10/03/2014 8:37 EDT - 10/03/2014 23:59 EDT Hospital Encounter [address] [address] Unknown, Provider, Brody Duran MD PhD [address] [place] [address], Level 5 [place] [address] Discharge Disposition: Auto Discharge Social [...] Refills Start Date End Date GLUC/PRANAV-MSM#2/C/D3/MA NG/BORN ([id number] WITH VIT D ORAL) Take 1 Tab [...] 01/23/2024 10:00 EDT Office Visit [facility] General Surgery - [address] [address]95[address] Bon Gutierrez MD 111 [facility], Level 5 [place] [phone] 09/10/2024 10:00 EDT Appointment Shaina Mejia [address] [place] [address] documented as of this encounter Visit Diagnoses Not on filedocumented in this encounter Care Teams Count Team Clerk Relationship Specialty Start Date End Date Kamala Rosado MD [address] [address] PCP - General 10/05/13 10/19/15 documented as of this encounter
--- OUTSIDE RECORDS SUMMARY | 2024-01-20 15:55 | XMS_ITS | Encounter Summary ---
Author Organization [facility] Address [address] [place] [address] Care Team Providers Care Contract Project Manager Name Role Phone Kamala Rosado MD Primary Care Provider [phone] Reason for Referral * Radiology Services (Routine) - Closed Specialty Diagnoses / Procedures [facility] Referred To Contact Diagnoses Cirrhosis (HCC-CMS) Procedures RAD US LIVER WITH DOPPLER Guicho Rosales MD [address] [place] [phone] Referral ID Status Reason Start Date Expiration Date Visits Re quested Visits Authorized [id number] Closed 07/30/2014 1 1 Reason for Visit * Reason Comments Follow-up 3 month s/p TIPS Encounter Details Date Type Department Care Team (Late st Contact Info) Description 07/30/2014 9:00 EDT Office Visit [facility] Interventional Radiology - [address] [phone] Guicho Rosales MD [address] [place] [address] Cirrhosis (CMS-HCC) (HCC-CMS) (Primary Dx) Social [...] MD Medication Sig Dispense Refill ??? GLUC/PRANAV-MSM#2/C/D3/MAHESH/BORN ([id number] WITH VIT D ORAL) Take 1 Tab [...] [facility] General Surgery - [facility] [address] [place] [address] Bon Gutierrez MD [address] [facility], Level 5 [place] [address] 09/10/2024 10:00 EDT Appointment Shaina Bergeron Ultrasound [address] [place] [address] documented as of this encounter [...] Symptoms/Comments: ??571.5-Cirrhosis of liver without mention of yjxuwxa-EKO-9-CM; TIPS 10/14. ??Needs surveillance ultrasound of TIPS. [...] Symptoms/Comments: 571.5-Cirrhosis of liver without mention of nhlxmrl-TGX-4-CM; TIPS 10/14. Needs surveillance ultrasound of TIPS. [...] 02/18/2015 added in this encounter Care Teams Contract Project Manager Relationship Specialty Start Date End Date Kamala Rosado MD [address] [address] PCP - General 10/05/13 10/19/15 documented as of this encounter
--- OUTSIDE RECORDS SUMMARY | 2024-01-20 15:55 | XMS_ITS | Encounter Summary ---
Author Organization [facility] Address [address] [place] [address] Care Team Providers Care Paper Making Machine Operator Name Role Phone Kamala Rosado MD Primary Care Provider [phone] Reason for Visit * Reason Comments Follow-up Encounter Details Date Type Department Care Team (Late st Contact Info) Description 04/30/2014 9:30 EST Office Visit [facility] Interventional Radiology - [address] [phone] Guicho Rosales MD [address] [place] [address] Level 1 [place] [address] Cirrhosis (CMS-HCC) (HCC-CMS) (Primary Dx) [...] MD Medication Sig Dispense Refill ??? GLUC/PRANAV-MSM#2/C/D3/MAHESH/BORN ([id number] WITH VIT D ORAL) Take 1 Tab [...] 1 Tab by mouth daily. - GLUC/PRANAV-MSM#2/C/D3/MAHESH/BORN ([id number] WITH VIT D ORAL); Take 1 Tab [...] Info) Description 01/23/2024 10:00 EDT Office Visit [facility] General Surgery - [facility] [address] [place], [place] [address] Bon Gutierrez MD 111 [facility], [facility], Level 5 [place] [address] 09/10/2024 10:00 EDT Appointment Shaina Bergeron Ultrasound [address] [place], [place] [phone] documented as of this encounter Procedures Procedure [...] History/Comments: 571.5-Cirrhosis of liver without mention of jkupllu-YIF-1-CM; TIPS 01/28/14 Comparison: 04/30/2014. Findings: An ultrasound [...] History/Comments: 571.5-Cirrhosis of liver without mention of ssvkzca-FEM-4-CM; TIPS 01/28/14 Comparison: 04/30/2014. Findings: An ultrasound [...] Refills Start Date End Date GLUC/PRANAV-MSM#2/C/D3/MAHESH /BORN ([id number] WITH VIT D ORAL) Take 1 Tab by mouth 2 times daily. 11/12/2014 PV W-O ROCK/FERROUS FUMARATE/FA (M-VIT ORAL) Take 1 Tab by mouth daily. 11/12/2014 added in this encounter Care Teams Paper Making Machine Operator Relationship Specialty Start Date End Date Kamala Rosado MD [address] [address] PCP - General 10/05/13 10/19/15 documented as of this encounter
--- OUTSIDE RECORDS SUMMARY | 2024-01-20 15:55 | XMS_ITS | Encounter Summary ---
Author Organization [facility] Address [address] [place] [address] Care Team Providers Care District Sales Leader Name Role Phone Kamala Rosado MD Primary Care Provider [phone] Encounter Details Date Type Department Care Team (Late st Contact Info) Description 04/30/2014 7:32 EST - 04/30/2014 23:59 EST Hospital Encounter [address] [address] Guicho Rosales MD [address] [place] [address] 1 [place] [phone] Discharge Disposition: Auto Discharge Social History Tobacco [...] Refills Start Date End Date GLUC/PRANAV-MSM#2/C/D3/MAHESH /BORN (LDNOCXUS-[id number]-YVZ WITH VIT D ORAL) Take 1 Tab [...] Visit [facility] General Surgery - [facility] 111 [place], [place] 6[address] Bon Gutierrez MD 111 [facility], Level 5 [place] [phone] 09/10/2024 10:00 EDT Appointment Shaina Bergeron [address] [place], [place] 881226 documented as of this encounter Visit Diagnoses Not on filedocumented in this encounter Care Teams District Sales Leader Relationship Specialty Start Date End Date Kamala Rosado MD [address] [address] PCP - General 10/05/13 10/19/15 documented as of this encounter
--- OUTSIDE RECORDS SUMMARY | 2024-01-20 15:55 | XMS_ITS | Encounter Summary ---
Author Organization [facility] Address [address] [place] [address] Care Team Providers Care Acting Instructor Name Role Phone Kamala Rosado MD Primary Care Provider [phone] Encounter Details Date Type Department Care Team (Latest Contact Info) Description 10/04/2014 Orders Only [facility] Gastroenterology - [facility] [address] [place] [address] [address] [facility] Chronic hepatitis C without mention of hepatic [...] Info) Description 01/23/2024 10:00 EDT Office Visit [facility] General Surgery - [facility] [address] [place], [place] 5120[address] Bon Gutierrez MD 111 [facility], Level 5 [place] [phone] 09/10/2024 10:00 EDT Appointment Shaina Rubio [address] [phone] documented as of this encounter Results * HCV RNA DETECT QUANT (10/30/2014 8:20 EDT) [facility] HCV RNA Detect Quant Undetected IU/mL 10/31/2014 14:54 EDT [facility] Comment: Reference Range: ??Undetected The quantification range of this assay is 15 IU/mL to 100,000,000 IU/mL. Testing was performed by the Mili Ampliprep/Mili TaqMan HCV v2.0 ([employer] Blood specimen (specimen) BLOOD SPECIMEN / Unknown 10/30/2014 8:20 EDT 10/30/2014 8:41 EDT Brody Duran MD PhD CHEMISTRY & BLO OD GAS ORDERABLES [facility] 111 [place] [address] documented in this encounter Visit Diagnoses Diagnosis Chronic hepatitis C without mention of hepatic coma- Primary documented in this encounter Care Teams Acting Instructor Relationship Specialty Start Date End Date Kamala Rosado MD [address] [address] PCP - General 10/05/13 10/19/15 documented as of this encounter
--- OUTSIDE RECORDS SUMMARY | 2024-01-20 15:55 | XMS_ITS | Encounter Summary ---
Author Organization [facility] Address [address] [place] [address] Care Team Providers Care Rn Physician Office Name Role Phone Kamala Rosado MD Primary Care Provider [phone] Encounter Details Date Type Department Care Team (Late st Contact Info) Description 11/12/2014 7:29 EDT - 11/12/2014 23:59 EDT Hospital Encounter [address] [address] Guicho Rosales MD [address] [place] [address] 1 [place] [phone] Discharge Disposition: Auto Discharge Social History Tobacco [...] Description 01/23/2024 10:[address] [facility] General Surgery - [address] 9523[address] Bon Gutierrez MD 111 [place], Level 5 [place] [phone] 09/10/2024 10:00 EDT Appointment Shaina Mejia [address] [place] [address] documented as of this encounter Visit Diagnoses Not on filedocumented in this encounter Care Teams Rn Physician Office Relationship Specialty Start Date End Date Kamala Rosado MD [address] [address] PCP - General 10/05/13 10/19/15 documented as of this encounter
--- OUTSIDE RECORDS SUMMARY | 2024-01-20 15:55 | XMS_ITS | Encounter Summary ---
Author Organization [facility] Address [address] [place] [address] Care Team Providers Care Silver Service Waiter Name Role Phone Kamala Rosado MD Primary Care Provider [phone] Reason for Visit * Reason Comments Follow-up 1 year, pt says he h ad a TIPS procedure Jan 28 Encounter Details Date Type Department Care Team (Late st Contact Info) Description 03/15/2014 13:00 EST Office Visit [facility] Gastroenterology - [address] [address] Brody Duran MD PhD 111 [facility], Level 5 [place] [address] Chronic hepatitis C without mention [...] Duran MD - 03/15/2014 1558 EST [facility] GASTROENTEROLOGY AND HEPATOLOGY PROGRESS / FOLLOWUP NOTE - 03/15/2014 Kamala Rosado MD [address], [facility] 3 [place] [address] Rosado: This is to let [...] through our interventional radiologists here at the [facility]. I am concerned about the possible [...] - Brody Duran MD,PhD mn Dictation ID: [id number] cc: Kamala Rosado MD, [address], [place] [address] * Brody Duran MD - 03/15/2014 1341 EST This office note has been dictated. documented in this encounter Plan of Treatment Upcoming Encounters Date Type Department Care Team (Late st Contact Info) Description 01/23/2024 10:00 EDT Office Visit [facility] General Surgery - [address] [address]268[address] Bon Gutierrez MD [address] [place] [address], Level 5 [place] [phone] 09/10/2024 10:00 EDT Appointment Shaina Mejia [address] [place] [address] documented as of this encounter Visit Diagnoses [...] 04/30/2014 added in this encounter Care Teams Silver Service Waiter Relationship Specialty Start Date End Date Kamala Rosado MD NPI: [id number] [place] [address] PCP - General 10/05/13 10/19/15 documented as of this encounter
--- OUTSIDE RECORDS SUMMARY | 2024-01-20 15:55 | XMS_ITS | Encounter Summary ---
Author Organization [facility] Address [address] [place] [address] Care Team Providers Care Sap Hana Developer Name Role Phone Kamala Rosado MD Primary Care Provider [phone] Encounter Details Date Type Department Care Team (Latest Contact Info) Description 05/17/2014 11:38 EST - 05/17/2014 23:59 EST Hospital Encounter [address] [address] Unknown, Provider, Discharge Disposition: Home or Self [...] Refills Start Date End Date GLUC/PRANAV-MSM#2/C/D3/MAHESH /BORN (LIHHFDLR-[id number]-QTO WITH VIT D ORAL) Take 1 Tab by mouth 2 times daily. 11/12/2014 ledipasvir-sofosbuvir (HARVONI) 90-400 mg tablet Take 1 Tab by mouth daily. 28 Tab 5 05/15/2014 02/18/2015 PV W-O ROCK/FERROUS FUMARATE/FA (M-VIT ORAL) Take 1 Tab by mouth daily. 11/12/2014 documented as of this encounter Discharge Disposition Disposition Code Departure Means Destination Home or Self Retirement documented in this encounter Plan of Treatment Upcoming Encounters Date Type Department Care Team (Late st Contact Info) Description 01/23/2024 10:00 EDT Office Visit [facility] General Surgery - [address] 3895[address] Bon Gutierrez MD 111 [facility], [facility], Level 5 [place] [phone] 09/10/2024 10:00 EDT Appointment Shaina Bergeron [address] [place], [place] 18[address] documented as of this encounter Visit Diagnoses Not on filedocumented in this encounter Care Teams Sap Hana Developer Relationship Specialty Start Date End Date Kamala Rosado MD [address] [address] PCP - General 10/05/13 10/19/15 documented as of this encounter
--- OUTSIDE RECORDS SUMMARY | 2024-01-20 15:55 | XMS_ITS | Encounter Summary ---
Author Organization [facility] Address [address] [place] [address] Care Team Providers Care Server Manager Name Role Phone Kamala Rosado MD Primary Care Provider [phone] Encounter Details Date Type Department Care Team (Latest Contact Info) Description 06/06/2014 Orders Only [facility] Gastroenterology - [facility] [address] [place] [address] Deedee Chairez inside sales administrator hepatitis C without mention of hepatic coma [...] Description 01/23/2024 10:00 EDT Office Visit [facility] General Surgery - [facility] [address] [place], [place] 444[address] Bon Gutierrez MD 111 [facility], Level 5 [place] [phone] 09/10/2024 10:00 EDT Appointment Shaina Bergeron [address] [address] documented as of this encounter Results * HCV RNA DETECT QUANT (06/28/2014 9:17 EDT) Pathologist [facility] HCV RNA Detect Quant Undetected IU/mL 07/01/2014 14:54 EDT [facility] Comment: Reference Range: ??Undetected The quantification range of this assay is 15 IU/mL to 100,000,000 IU/mL. Testing was performed by the Mili Ampliprep/Mili TaqMan HCV v2.0 ([employer] Blood specimen (specimen) BLOOD SPECIMEN / Unknown 06/28/2014 9:17 EDT 06/28/2014 9:33 EDT Brody Duran MD PhD CHEMISTRY & BLO OD GAS ORDERABLES [facility] 111 [place] [address] documented in this encounter Visit Diagnoses Diagnosis Chronic hepatitis C without mention of hepatic coma- Primary documented in this encounter Care Teams Server Manager Relationship Specialty Start Date End Date Kamala Rosado MD [address] [address] PCP - General 10/05/13 10/19/15 documented as of this encounter
--- OUTSIDE RECORDS SUMMARY | 2024-01-20 15:55 | XMS_ITS | Encounter Summary ---
Author Organization [facility] Address [address] [place] [address] Care Team Providers Care Esthetics Instructor Name Role Phone Kamala Rosado MD Primary Care Provider [phone] Encounter Details Date Type Department Care Team (Late st Contact Info) Description 09/04/2014 Phlebotomy Only [facility] 111 [place] [address] [facility], Outpatient Chronic hepatitis C without mention of [...] Medical [facility] General Surgery - [facility] 111 [place], [place] 8407[address] Bon Gutierrez MD 111 [facility], Level 5 [place] [address] 09/10/2024 10:00 EDT Appointment Shaina Bergeron Ultrasound 0 [place] [address] documented as of this encounter [...] 9.5 - 12.3 secs 09/04/2014 9:[address] [facility] I.N.R. 1.2(H) 0.9 - 1.1 Ratio 09/04/2014 9:[address] [facility] Comment: Moderate Intensity Coumadin INR = 2.0-3.0 Adjustments in anticoagulant therapy dose should be based upon the INR and NOT the Pro Time. Blood specimen (specimen) BLOOD SPECIMEN / Unknown 09/04/2014 8:56 EDT 09/04/2014 9:07 EDT Brody Duran MD PhD HEMATOLOGY & PF [address] [facility] [address] [place] [address] * (ABNORMAL) COMPREHENSIVE METABOLIC PANEL (CMP) (09/04/2014 8:56 EDT) Potassium 4.2 3.5 - 5.0 mEq/L 09/04/2014 11:34 [facility] Sodium 136 136 - 145 mEq/L 09/04/2014 11:34 [facility] Chloride 106 96 - 110 mEq/L 09/04/2014 11:34 [facility] CO2 24 24 - 32 mEq/L 09/04/2014 11:34 [facility] Total Alkaline Phosphatase 95 38 - 126 U/L 09/04/2014 11:34 [facility] Bilirubin, Total 1.6(H) <1.4 mg/dl 09/05/19 15 11:34 [facility] AST 32 15 - 46 U/L 09/04/2014 11:34 [facility] ALT 33 21 - 72 U/L 09/04/2014 11:34 [facility] Albumin 3.2(L) 3.4 - 4.9 g/dl 09/04/2014 11:34 [facility] Total Protein 6.6 6.5 - 8.3 g/dl 09/04/2014 11:34 [facility] Creatinine 0.80 0.66 - 1.25 mg/dl 09/04/2014 11:34 [facility] GFR, Calculated >60 >60 ml/min/1.7 3m2 09/04/2014 11:34 [facility] BUN 15 10 - 26 mg/dl 09/04/2014 11:34 [facility] Calcium 8.7 8.5 - 10.5 mg/dl 09/04/2014 11:34 [facility] Calculated Calcium 9.9 8.5 - 10.5 mg/dl 09/04/2014 11:34 [facility] Glucose, Serum 264(H) 70 - 100 mg/dl 09/04/2014 11:34 [facility] Fasting? No 09/04/2014 8:57 [facility] Blood specimen (specimen) BLOOD SPECIMEN / Unknown 09/04/2014 8:56 EDT 09/04/2014 9:07 EDT Brody Duran MD PhD CHEMISTRY & BLO OD GAS ORDERABLES Performing Organization Address City/State/[facility] Co de Phone Number [facility] [address] [place] [address] * (ABNORMAL) HEMAGRAM (09/04/2014 8:56 EDT) WBC 3.61(L) 4.0 - 10.4 K/cmm 09/04/2014 9:25 [facility] RBC 4.16(L) 4.36 - 5.78 M/cmm 09/04/2014 9:25 [facility] Hemoglobin 13.9 13.8 - 17.3 gm/dl 09/04/2014 9:25 [facility] HCT 38.8(L) 39.5 - 50.2 % 09/04/2014 9:25 [facility] MCV 93 81 - 95 fl 09/04/2014 9:25 [facility] MCH 33.4(H) 27.6 - 33.0 pg 09/04/2014 9:25 [facility] MCHC 35.8 32.8 - 36.4 gm/dl 09/04/2014 9:25 [facility] RDW-CV 14.1 11.8 - 14.1 % 09/04/2014 9:25 [facility] RDW-SD 45.9 36.5 - 45.9 fl 09/04/2014 9:25 [facility] PLT 104(L) 141 - 320 K/cmm 09/04/2014 9:25 [facility] MPV 6.7(L) 7.5 - 11.2 fl 09/04/2014 9:25 [facility] Blood specimen (specimen) BLOOD SPECIMEN / Unknown 09/04/2014 8:56 EDT 09/04/2014 9:07 EDT Brody Duran MD PhD HEMATOLOGY & PF [address] [facility] [address] [place] [address] documented in this encounter Visit Diagnoses Diagnosis Chronic hepatitis C without mention of hepatic coma- Primary documented in this encounter Care Teams Esthetics Instructor Relationship Specialty Start Date End Date Kamala Rosado MD [address] [address] PCP - General 10/05/13 10/19/15 documented as of this encounter
--- OUTSIDE RECORDS SUMMARY | 2024-01-20 15:55 | XMS_ITS | Encounter Summary ---
Author Organization [facility] Address [address] [place] [address] Care Team Providers Care Long Chain Dyeing Machine Operator Name Role Phone Kamala Rosado MD Primary Care Provider [phone] Encounter Details Date Type Department Care Team (Latest Contact Info) Description 06/06/2014 Documentation Visit [facility] Gastroenterology - [facility] [place] [address] [place] [address] [address] [facility] Social History Tobacco Use Types [...] for labs to be done at the [facility]. Patient denied use of any other OTC, [...] Info) Description 01/23/2024 10:00 EDT Office Visit [facility] General Surgery - [address] [address] Bon Gutierrez MD [address] [place] [address], Level [address] [place] [phone] 09/10/2024 10:00 EDT Appointment Shaina Mejia [address] [place] [address] documented as of this encounter Visit Diagnoses Not on filedocumented in this encounter Care Teams Long Chain Dyeing Machine Operator Relationship Specialty Start Date End Date Kamala Rosado MD [address] [address] PCP - General 10/05/13 10/19/15 documented as of this encounter
--- OUTSIDE RECORDS SUMMARY | 2024-01-20 15:55 | XMS_ITS | Encounter Summary ---
Author Organization [facility] Address [address] [place] [address] Care Team Providers Care Entry Level Programmer Name Role Phone Kamala Rosdao MD Primary Care Provider [phone] Encounter Details Date Type Department Care Team (Late st Contact Info) Description 07/30/2014 7:36 EDT - 07/30/2014 23:59 EDT Hospital Encounter [address] [address] Guicho Rosales MD [address] [place] [address] 1 [place] [phone] Discharge Disposition: Auto Discharge Social History Tobacco [...] Refills Start Date End Date GLUC/PRANAV-MSM#2/C/D3/MAHESH /BORN ([id number] WITH VIT D ORAL) Take 1 Tab [...] [facility] General Surgery - [address] [address] Bon Gutierrez MD [address] [place] [address], Level [address] [place] [phone] 09/10/2024 10:00 EDT Appointment Shaina Mejia [address] [place] [phone] documented as of this encounter Visit Diagnoses Not on filedocumented in this encounter Care Teams Entry Level Programmer Relationship Specialty Start Date End Date Kamala Rosado MD [address] [address] PCP - General 10/05/13 10/19/15 documented as of this encounter
--- OUTSIDE RECORDS SUMMARY | 2024-01-20 15:55 | XMS_ITS | Encounter Summary ---
Author Organization [facility] Address [address] [place] [address] Care Team Providers Care Airplane Patrol Pilot Name Role Phone Kamala Rosado MD Primary Care Provider [phone] Encounter Details Date Type Department Care Team (Late st Contact Info) Description 11/21/2014 7:22 EDT - 11/21/2014 23:59 EDT Hospital Encounter [address] [address] Unknown, Provider, Brody Duran MD PhD [address] [place] [address], [address] 5 [place] [address] Discharge Disposition: Auto Discharge Social [...] [facility] General Surgery - [address] [address] Bon Gutierrez MD 111 [facility], Level 5 [place] [address] 09/10/2024 10:00 EDT Appointment Shaina Bergeron [address] [address] documented as of this encounter Visit Diagnoses Not on filedocumented in this encounter Care Teams Airplane Patrol Pilot Relationship Specialty Start Date End Date Kamala Rosado MD [address] [address] PCP - General 10/05/13 10/19/15 documented as of this encounter
--- OUTSIDE RECORDS SUMMARY | 2024-01-20 15:55 | XMS_ITS | Encounter Summary ---
Author Organization [facility] Address [address] [place] [address] Care Team Providers Care Pathology Laboratory Director Name Role Phone Kamala Rosado MD Primary Care Provider [phone] Reason for Visit * Reason Onset Date Comments Medication Management 11/01/2014 Encounter Details Date Type Department Care Team (Late st Contact Info) Description 11/01/2014 Telephone [facility] [place] [address] [address] [facility] Medication Management Social History Tobacco Use Types [...] [facility] General Surgery - [address] [phone] Bon Gutierrez MD [address] [place] [address], Level 5 [place] [phone] 09/10/2024 10:00 EDT Appointment Shaina Mejia 0 [place] [address] documented as of this encounter Results * HCV RNA DETECT QUANT (11/21/2014 7:25 EDT) HCV RNA Detect Quant Undetected IU/mL 11/22/2014 8:08 EDT [facility] Comment: Reference Range: ??Undetected The quantification range of this assay is 15 IU/mL to 100,000,000 IU/mL. Testing was performed by the Mili Ampliprep/Mili TaqMan HCV v2.0 ([employer] Blood specimen (specimen) BLOOD SPECIMEN / Unknown 11/21/2014 7:25 EDT 11/21/2014 8:43 EDT Brody Duran MD PhD CHEMISTRY & BLO OD GAS ORDERABLES [facility] [address] [place] [address] documented in this encounter Visit Diagnoses Diagnosis Chronic hepatitis C without mention of hepatic coma- Primary documented in this encounter Care Teams Pathology Laboratory Director Relationship Specialty Start Date End Date Kamala Rosado MD [address] [address] PCP - General 10/05/13 10/19/15 documented as of this encounter
--- OUTSIDE RECORDS SUMMARY | 2024-01-20 15:55 | XMS_ITS | Encounter Summary ---
Author Organization [facility] Address [address] [place] [address] Care Team Providers Care Track Service Worker Name Role Phone Kamala Rosado MD Primary Care Provider [phone] Unknown, Provider Primary Care Provider [phone] Sari Salgado MD Primary Care Provider [phone] Unknown, Provider Primary Care Provider [phone] Elissa AlejoC Primary Care Provider [phone] Laurie Wiggins MD Primary Care Provider [phone] Katia BlancoP Primary Care Provider [phone] George Lou RPA Primary Care Provider [phone] Reason for Visit * Reason Onset Date Comments Hepatitis C 05/01/2014 waiting to hear from nurse regarding tea Encounter Details Date Type Department Care Team (Late st Contact Info) Description 05/01/2014 Telephone [facility] Gastroenterology - [facility] [address] [place] [address] Brody Duran MD PhD 111 [facility], Level 5 [place] [address] Hepatitis C (waiting to hear [...] Office Visit [facility] General Surgery - [address] [address] Bon Gutierrez MD 111 [facility], Level [address] [place] [phone] 09/10/2024 10:00 EDT Appointment Shaina Bergeron [address] [place] [address] documented as of this encounter Visit Diagnoses Not on filedocumented in this encounter Care Teams Track Service Worker Relationship Specialty Start Date End Date Kamala Rosado MD [address] [address] PCP - General 10/05/13 10/19/15 Unknown, Provider, PCP - General 10/20/15 10/20/15 Sari Salgado MD PCP - General 10/21/15 11/07/16 Unknown, Kristy, PCP - General 11/08/16 11/08/16 Elissa Alejo PA-C [address] [place] [address] [place] [phone] PCP - General 11/09/16 05/07/18 Laurie Wiggins MD [address] [facility] [address] [place] [phone] PCP - General 05/08/18 03/25/19 Katia Blanco FNP [address] [place], [place] [address] PCP - General 03/26/19 09/20/22 George Lou RPA [address] [facility] 1 [place], [place] [address] PCP - General Family Medicine - Primary Care 09/21/22 documented as of this encounter
--- OUTSIDE RECORDS SUMMARY | 2024-01-20 15:55 | XMS_ITS | Encounter Summary ---
Author Organization [facility] Address [address] [place] [address] Care Team Providers Care Pension Examiner Name Role Phone Kamala Rosado MD Primary Care Provider [phone] Encounter Details Date Type Department Care Team (Latest Contact Info) Description 09/03/2014 Orders Only [facility] - [facility] [address] [place] [address] [address] [facility] Chronic hepatitis C without mention of hepatic [...] confirmed he would be in tomorrow at [facility] for labs and on 09/05 for follow up appt with Dr. Duran. documented in this encounter Plan of Treatment Upcoming Encounters Date Type Department Care Team (Late st Contact Info) Description 01/23/2024 10:00 EDT Office Visit [facility] General Surgery - [address] [address] Bon Gutierrez MD 111 [facility], Level [address] [place] [address] 09/10/2024 10:00 EDT Appointment Shaina Bergeron [address] [place] [address] documented as of this encounter Visit Diagnoses Diagnosis Chronic hepatitis C without mention of hepatic coma- Primary documented in this encounter Care Teams Pension Examiner Relationship Specialty Start Date End Date Kamala Rosado MD [address] [address] PCP - General 10/05/13 10/19/15 documented as of this encounter
--- OUTSIDE RECORDS SUMMARY | 2024-01-20 15:55 | XMS_ITS | Encounter Summary ---
Author Organization [facility] Address [address] [place] [address] Care Team Providers Care Scraper Hand Name Role Phone Kamala Rosado MD Primary Care Provider [phone] Encounter Details Date Type Department Care Team (Late st Contact Info) Description 05/17/2014 Phlebotomy Only [facility] [address] [place] [address] Deli Cook, Outpatient Cirrhosis of liver without mention of [...] [facility] General Surgery - [facility] [address] [place], [place] [address] Bon Gutierrez MD 111 [facility], Level 5 [place] [address] 09/10/2024 10:00 EDT Appointment Shaina Bergeron Ultrasound [address] [place] [address] documented as of this encounter Procedures Procedure Name Priority Date/Time Associated Diagnosis Comments HCV RNA DETECT QUANT Routine 05/17/2014 11:43 EST Cirrhosis of liver without mention of alcohol Chronic hepatitis C without mention of hepatic coma documented in this encounter Results * HCV RNA DETECT QUANT (05/17/2014 11:43 EST) HCV RNA Detect Quant 348,635 IU/mL 05/20/2014 15:05 EST [facility] Comment: Reference Range: ??Undetected The quantification range of this assay is 15 IU/mL to 100,000,000 IU/mL. Testing was performed by the Mili Ampliprep/Mili TaqMan HCV v2.0 ([employer] Blood specimen (specimen) BLOOD SPECIMEN / Unknown 05/17/2014 11:43 EST 05/17/2014 12:16 EST Brody Duran MD PhD CHEMISTRY & BLO OD GAS ORDERABLES [facility] [address] [place] [address] documented in this encounter Visit Diagnoses Diagnosis Cirrhosis of liver without mention of alcohol Chronic hepatitis C without mention of hepatic coma documented in this encounter Care Teams Scraper Hand Relationship Specialty Start Date End Date Kamala Rosado MD NPI: [id number] [place] [address] PCP - General 10/05/13 10/19/15 documented as of this encounter
--- OUTSIDE RECORDS SUMMARY | 2024-01-20 15:55 | XMS_ITS | Encounter Summary ---
Author Organization [facility] Address [address] [place] [address] Care Team Providers Care Ball Racker Name Role Phone Kamala Rosado MD Primary Care Provider [phone] Encounter Details Date Type Department Care Team (Latest Contact Info) Description 06/28/2014 9:12 EDT - 06/28/2014 23:59 EDT Hospital Encounter [facility] [address] [place] [address] Unknown, Provider, Discharge Disposition: Home or Self [...] Refills Start Date End Date GLUC/PRANAV-MSM#2/C/D3/MAHESH /BORN ([id number]-[id number]-GTT WITH VIT D ORAL) Take 1 Tab by mouth 2 times daily. 11/12/2014 ledipasvir-sofosbuvir (HARVONI) 90-400 mg tablet Take 1 Tab by mouth daily. 28 Tab 5 05/15/2014 02/18/2015 PV W-O ROCK/FERROUS FUMARATE/FA (M-VIT ORAL) Take 1 Tab by mouth daily. 11/12/2014 documented as of this encounter Discharge Disposition Disposition Code Departure Means Destination Home or Self Fdc documented in this encounter Plan of Treatment Upcoming Encounters Date Type Department Care Team (Late st Contact Info) Description 01/23/2024 10:00 EDT Office Visit [facility] General Surgery - [facility] [address] [place], [place] [address] Bon Gutierrez MD 111 [facility], [address] [place] [address] 09/10/2024 10:00 EDT Appointment Shaina Bergeron [address] [place], [place] [address] documented as of this encounter Visit Diagnoses Not on filedocumented in this encounter Care Teams Ball Racker Relationship Specialty Start Date End Date Kamala Rosado MD [address] [address] PCP - General 10/05/13 10/19/15 documented as of this encounter
--- OUTSIDE RECORDS SUMMARY | 2024-01-20 15:55 | XMS_ITS | Encounter Summary ---
Author Organization [facility] Address [address] [place] [address] Care Team Providers Care Consumer Sales Representative Name Role Phone Kamala Rosado MD Primary Care Provider [phone] Reason for Visit * Reason Comments Follow-up Encounter Details Date Type Department Care Team (Late st Contact Info) Description 11/12/2014 9:00 EDT Office Visit [facility] Interventional Radiology - [address] [address] Guicho Rosales MD [address] [place] [address], [address] [place] [address] Other cirrhosis of liver (CMS-HCC) [...] Visit [facility] General Surgery - [facility] [place] [address] [place] [address] Bon Gutierrez MD 111 [facility], [address] 5 [place] [address] 09/10/2024 10:00 EDT Appointment Shaina Bergeron Ultrasound [address] [place], [place] [address] documented as of this encounter Procedures Procedure [...] SYMPTOMS/COMMENTS: ??571.5-Cirrhosis of liver without mention of dhfremb-VLB-2-CM; TIPS 01/2014. Comparison: None Technique: Grayscale and [...] SYMPTOMS/COMMENTS: 571.5-Cirrhosis of liver without mention of rdhrwhd-ZPU-4-CM; TIPS 01/2014. Comparison: None Technique: Grayscale and [...] Start Date End Da te GLUC/PRANAV-MSM#2/C/D3/ MAHESH/BORN ([id number]-[id number]-GPT WITH VIT D ORAL) Take 1 Tab by mouth 2 times daily. Discontinued by another clinician 11/12/2014 UNABLE TO FIND Blood pressure medication unknown Discontinued by another clinician 11/12/2014 PV W-O ROCK/FERROUS FUMARATE/FA (M-VIT ORAL) Take 1 Tab by mouth daily. Discontinued by another clinician 11/12/2014 documented as of this encounter Care Teams Consumer Sales Representative Relationship Specialty Start Date End Date Kamala Rosado MD [address] [address] PCP - General 10/05/13 10/19/15 documented as of this encounter
--- OUTSIDE RECORDS SUMMARY | 2024-01-20 15:55 | XMS_ITS | Encounter Summary ---
Author Organization [facility] Address [address] [place] [address] Care Team Providers Care System Programmer Name Role Phone Kamala Rosado MD Primary Care Provider [phone] Reason for Visit * Reason Onset Date Comments Results 07/02/2014 on Harvoni and w ould like lab results. Encounter Details Date Type Department Care Team (Late st Contact Info) Description 07/02/2014 Telephone [facility] Gastroenterology - [address] [address] Brody Duran MD PhD 111 [facility], Level [address] [place] [address] Results (on Harvoni and would [...] weeks- Undetected. He states he is in [facility] with family obligation, cannot make 07/08/14 appointment [...] [facility] - [address] [id number] Bon Gutierrez MD 111 [facility], [facility], [address] [place] [address] 09/10/2024 10:00 EDT Appointment Shaina Mejia [address] [place] [address] documented as of this encounter Results * HCV RNA DETECT QUANT (08/29/2014 11:24 EDT) HCV RNA Detect Quant Undetected IU/mL 09/03/2014 14:19 EDT [facility] Comment: Reference Range: ??Undetected The quantification range of this assay is 15 IU/mL to 100,000,000 IU/mL. Testing was performed by the Mili Ampliprep/Mili TaqMan HCV v2.0 ([employer] Blood specimen (specimen) BLOOD SPECIMEN / Unknown 08/29/2014 11:24 EDT 08/29/2014 11:44 EDT Brody Duran MD PhD CHEMISTRY & BLO OD GAS ORDERABLES [facility] [address] [place] [address] documented in this encounter Visit Diagnoses Diagnosis Chronic hepatitis C without mention of hepatic coma- Primary documented in this encounter Care Teams System Programmer Relationship Specialty Start Date End Date Kamala Rosado MD [address] [address] PCP - General 10/05/13 10/19/15 documented as of this encounter
--- OUTSIDE RECORDS SUMMARY | 2024-01-20 15:55 | XMS_ITS | Encounter Summary ---
Author Organization [facility] Address [address] [place] [address] Care Team Providers Care Civil Engineer'S Aide Name Role Phone Kamala Rosado MD Primary Care Provider [phone] Encounter Details Date Type Department Care Team (Latest Contact Info) Description 05/13/2014 Orders Only [facility] Gastroenterology - [facility] [address] [place] [address] researcher hepatitis C without mention of hepatic coma [...] - [place] General Surgery - [facility] [address] [place], [place] [address] Bon Gutierrez MD 111 [facility], [address] [place] [phone] 09/10/2024 10:00 EDT Appointment Shaina Bergeron Jackie [address] [place] [id number] documented as of this encounter Results * HCV RNA DETECT QUANT (05/17/2014 11:43 EST) HCV RNA Detect Quant 348,635 IU/mL 05/20/2014 15:05 EST [facility] Comment: Reference Range: ??Undetected The quantification range of this assay is 15 IU/mL to 100,000,000 IU/mL. Testing was performed by the Mili Ampliprep/Mili TaqMan HCV v2.0 ([employer] Blood specimen (specimen) BLOOD SPECIMEN / Unknown 05/17/2014 11:43 EST 05/17/2014 12:16 EST rBody Duran MD PhD CHEMISTRY & BLO OD GAS ORDERABLES [facility] [address] [place] [address] documented in this encounter Visit Diagnoses Diagnosis Chronic hepatitis C without mention of hepatic coma- Primary Cirrhosis of liver without mention of alcohol documented in this encounter Care Teams Civil Engineer'S Aide Relationship Specialty Start Date End Date Kamala Rosado MD [address] [address] PCP - General 10/05/13 10/19/15 documented as of this encounter
--- OUTSIDE RECORDS SUMMARY | 2024-01-20 15:55 | XMS_ITS | Encounter Summary ---
Author Organization [facility] Address [address] [place] [address] Care Team Providers Care Transit Bus Driver Name Role Phone Kamala Rosado MD Primary Care Provider Encounter Details Date Type Department Care Team (Late st Contact Info) Description 08/29/2014 11:19 EDT - 08/29/2014 23:59 EDT Hospital Encounter [address] [address] Unknown, Provider, Brody Duran MD PhD [address] [place] [address], [address] [place] [address] Discharge Disposition: Auto Discharge Social [...] Refills Start Date End Date GLUC/PRANAV-MSM#2/C/D3/MAHESH /BORN ([id number]-[id number]-BBY WITH VIT D ORAL) Take 1 Tab [...] Visit [facility] General Surgery - [facility] [address] [place], [place] [phone] Bon Gutierrez MD 111 [facility], [address] [place] [address] 09/10/2024 10:00 EDT Appointment Shaina Mejia [address] [place] [address] documented as of this encounter Visit Diagnoses Not on filedocumented in this encounter Care Teams Transit Bus Driver Relationship Specialty Start Date End Date Kamala Rosado MD [address] [address] PCP - General 10/05/13 10/19/15 documented as of this encounter
--- OUTSIDE RECORDS SUMMARY | 2024-01-20 15:55 | XMS_ITS | Encounter Summary ---
Author Organization [facility] Address [address] [place] [address] Care Team Providers Care Collect On Delivery Clerk Name Role Phone Kamala Rosado MD Primary Care Provider [phone] Unknown, Provider Primary Care Provider [phone] Sari Salgado MD Primary Care Provider [phone] Unknown, Provider Primary Care Provider [phone] Elissa Alejo-C Primary Care Provider Laurie Wiggins MD Primary Care Provider [phone] Katia BlancoP Primary Care Provider [phone] George Lou [facility] Primary Care Provider [phone] Reason for Visit * Reason Onset Date Comments Other 05/22/2014 patient has ques tions regarding hep c new treatment. Just received a denial for med from a mail order company that he thought he no longer had. Encounter Details Date Type Department Care Team (Late st Contact Info) Description 05/22/2014 Telephone [facility] Gastroenterology - [facility] [address] [place] [address] Brody Duran MD PhD 111 [facility], [address] [place] [address] Other (patient has questions regarding [...] [facility] General Surgery - [address] [phone] Bon Gutierrez MD [address] [place] [address], [address] [place] [address] 09/10/2024 10:00 EDT Appointment Shaina Bergeron [address] [address] documented as of this encounter Visit Diagnoses Not on filedocumented in this encounter Care Teams Collect On Delivery Clerk Relationship Specialty Start Date End Date Kamala Rosado MD [address] [phone] PCP - General 10/05/13 10/19/15 Unknown, Provider, PCP - General 10/20/15 10/20/15 Sari Salgado MD PCP - General 10/21/15 11/07/16 Unknown, Provider, PCP - General 11/08/16 11/08/16 Elissa Alejo, EDNAC [address] [facility] [address] [address] PCP - General 11/09/16 05/07/18 Laurie Wiggins MD 193 [facility] [address] [address] PCP - General 05/08/18 03/25/19 Katia Blanco FNP [address] [place] [address] PCP - General 03/26/19 09/20/22 George Lou RPA [address] [facility] [address] [place], [place] [address] PCP - General Family Medicine - Primary Care 09/21/22 documented as of this encounter
--- OUTSIDE RECORDS SUMMARY | 2024-01-20 15:55 | XMS_ITS | Encounter Summary ---
Author Organization [facility] Address [address] [place] [address] Care Team Providers Care Product Planner Name Role Phone Kamala Rosado MD Primary Care Provider Encounter Details Date Type Department Care Team (Late st Contact Info) Description 10/30/2014 8:10 EDT - 10/30/2014 23:59 EDT Hospital Encounter [address] [address] Unknown, Provider, Brody Duran MD PhD [address] [place] [address], [address] [place] [address] Discharge Disposition: Auto Discharge Social [...] Refills Start Date End Date GLUC/PRANAV-MSM#2/C/D3/MA NG/BORN (ZCZGJWBO-BRHIBO-LMT WITH VIT D ORAL) Take 1 Tab [...] Visit [facility] General Surgery - [address] [address] Bon Gutierrez MD 111 [facility], [address] [place] [phone] 09/10/2024 10:00 EDT Appointment Shaina Mejia [address] [place] [phone] documented as of this encounter Visit Diagnoses Not on filedocumented in this encounter Care Teams Product Planner Relationship Specialty Start Date End Date Kamala Rosado MD [address] [address] PCP - General 10/05/13 10/19/15 documented as of this encounter
--- OUTSIDE RECORDS SUMMARY | 2024-01-20 15:55 | XMS_ITS | Encounter Summary ---
Author Organization [facility] Address [address] [place] [address] Care Team Providers Care Him Director Name Role Phone Kamala Rosado MD Primary Care Provider [phone] Reason for Visit * Reason Comments Hemorrhoids Pt states for a coup le of year with recently worsening symptoms Encounter Details Date Type Department Care Team (Late st Contact Info) Description 05/10/2014 15:00 EST Office Visit [facility] General Surgery - [address] [address] Man Haile MD [address] [place] [address], [address] [place] [address] Rectal bleeding (Primary Dx) Social [...] Haile MD - 05/11/2014 0141 EST THE GENERAL SURGERY CONSULTATION - 05/10/2014 HISTORY OF [...] Man Haile MD, FACS kn Dictation ID: [id number] cc: Kamala Rosado MD, [address], [facility] [address], [place] [address] Brody Duran MD,PhD, [facility] - Gastroenterology [address] [place] [address] documented in this encounter Plan of Treatment Upcoming Encounters Date Type Department Care Team (Late st Contact Info) Description 01/23/2024 10:00 EDT Office Visit [facility] General Surgery - [address] [address] Bon Gutierrez MD [address] [place] [address], [address] [place] [address] 09/10/2024 10:00 EDT Appointment Shaina Bergeron Ultrasound [address] [place] [address] documented as of this encounter Visit Diagnoses Diagnosis Rectal bleeding- Primary Hemorrhage of rectum and anus documented in this encounter Care Teams Him Director Relationship Specialty Start Date End Date Kamala Rosado MD [address] [address] PCP - General 10/05/13 10/19/15 documented as of this encounter
--- OUTSIDE RECORDS SUMMARY | 2024-01-20 15:55 | XMS_ITS | Encounter Summary ---
Author Organization [facility] Address [address] [place] [address] Care Team Providers Care Placement Assistant Name Role Phone Kamala Rosado MD Primary Care Provider [phone] Reason for Visit * Reason Onset Date Comments Other 07/17/2014 per ' s letter 03/15 office visit, ? should he have both CT and Abdomen Ultra sound. Encounter Details Date Type Department Care Team (Late st Contact Info) Description 07/17/2014 Telephone [facility] Gastroenterology - [address] [address] Brody Duran MD PhD [address] [place] [address] [address] [place] [address] Other (per 's letter 03/15 [...] [facility] General Surgery - [facility] [address] [place], [place] [address] Bon Gutierrez MD 111 [facility], [address] [place] [phone] 09/10/2024 10:00 EDT Appointment Shaina Bergeron [address] [place] [address] documented as of this encounter Visit Diagnoses Not on filedocumented in this encounter Care Teams Placement Assistant Relationship Specialty Start Date End Date Kamala Rosado MD [facility] MEDICINE [address] [address] PCP - General 10/05/13 10/19/15 documented as of this encounter
--- OUTSIDE RECORDS SUMMARY | 2024-01-20 15:55 | XMS_ITS | Encounter Summary ---
Author Organization [facility] Address [address] [place] [address] Care Team Providers Care Body Team Member Name Role Phone Kamala Rosado MD Primary Care Provider [phone] Encounter Details Date Type Department Care Team (Late st Contact Info) Description 11/21/2014 Phlebotomy Only [facility] [address] [place] [address] Rubber Gasket Inspector Trimmer, Outpatient Chronic hepatitis C without mention of [...] [facility] General Surgery - [facility] [address] [place], [place] [address] Bon Gutierrez MD 111 [facility], [address] [place] [address] 09/10/2024 10:00 EDT Appointment Shaina Bergeron Ultrasound [address] [place] [address] documented as of this encounter Procedures Procedure Name Priority Date/Time Associated Diagnosis Comments HCV RNA DETECT QUANT Routine 11/21/2014 7:25 EDT Chronic hepatitis C without mention of hepatic coma documented in this encounter Results * HCV RNA DETECT QUANT (11/21/2014 7:25 EDT) HCV RNA Detect Quant Undetected IU/mL 11/22/2014 8:08 EDT [facility] Comment: Reference Range: ??Undetected The quantification range of this assay is 15 IU/mL to 100,000,000 IU/mL. Testing was performed by the Mili Ampliprep/Mili TaqMan HCV v2.0 ([employer] Blood specimen (specimen) BLOOD SPECIMEN / Unknown 11/21/2014 7:25 EDT 11/21/2014 8:43 EDT Brody Duran MD PhD CHEMISTRY & BLO OD GAS ORDERABLES [facility] [address] [place] [address] documented in this encounter Visit Diagnoses Diagnosis Chronic hepatitis C without mention of hepatic coma- Primary documented in this encounter Care Teams Body Team Member Relationship Specialty Start Date End Date Kamala Rosado MD [address] [address] PCP - General 10/05/13 10/19/15 documented as of this encounter
--- OUTSIDE RECORDS SUMMARY | 2024-01-20 15:55 | XMS_ITS | Encounter Summary ---
Author Organization [facility] Address [address] [place] [address] Care Team Providers Care City Solicitor Name Role Phone Kamala Rosado MD Primary Care Provider [phone] Encounter Details Date Type Department Care Team (Late st Contact Info) Description 10/30/2014 Phlebotomy Only [facility] [address] [place] [address] Brake Tester, Outpatient Chronic hepatitis C without mention of [...] [facility] General Surgery - [facility] [address], [place] [address] Bon Gutierrez MD 111 [facility], [address] 5 [place] [address] 09/10/2024 10:00 EDT Appointment Shaina Bergeron Ultrasound [address] [place] [address] documented as of this encounter [...] Detect Quant Undetected IU/mL 10/31/2014 14:54 EDT [facility] Comment: Reference Range: ??Undetected The quantification range of this assay is 15 IU/mL to 100,000,000 IU/mL. Testing was performed by the Mili Ampliprep/Mili TaqMan HCV v2.0 ([employer] Blood specimen (specimen) BLOOD SPECIMEN / Unknown 10/30/2014 8:20 EDT 10/30/2014 8:41 EDT Brody Duran MD PhD CHEMISTRY & BLO OD GAS ORDERABLES Performing Organization Address [facility] Co de Phone Number [facility] [address] [place] [address] * (ABNORMAL) PROTIME (10/30/2014 8:20 EDT) Pro Time 13.3(H) 10.1 - 13.0 secs 10/30/2014 8:57 EDT [facility] I.N.R. 1.2(H) 0.9 - 1.1 Ratio 10/30/2014 8:57 EDT [facility] Comment: Moderate Intensity Coumadin INR = 2.0-3.0 Adjustments in anticoagulant therapy dose should be based upon the INR and NOT the Pro Time. Blood specimen (specimen) BLOOD SPECIMEN / Unknown 10/30/2014 8:20 EDT 10/30/2014 8:41 EDT Brody Duran MD PhD HEMATOLOGY & PF 4 ORDERABLES Performing Organization Address [facility] Co de Phone Number [facility] [address] [place] [address] * (ABNORMAL) COMPREHENSIVE METABOLIC PANEL (CMP) (10/30/2014 8:20 EDT) [facility] Potassium 4.2 3.5 - 5.0 mEq/L 10/30/2014 9:12 [facility] Sodium 142 136 - 145 mEq/L 10/30/2014 9:12 [facility] Chloride 106 96 - 110 mEq/L 10/30/2014 9:12 [facility] CO2 26 24 - 32 mEq/L 10/30/2014 9:12 [facility] Total Alkaline Phosphatase 99 38 - 126 U/L 10/30/2014 9:12 [facility] Bilirubin, Total 1.9(H) <1.4 mg/dl 10/31/19 15 9:12 [facility] AST 27 15 - 46 U/L 10/30/2014 9:12 [facility] ALT 31 21 - 72 U/L 10/30/2014 9:12 [facility] Albumin 3.6 3.4 - 4.9 g/dl 10/30/2014 9:12 [facility] Total Protein 6.8 6.5 - 8.3 g/dl 10/30/2014 9:12 [facility] Creatinine 0.78 0.66 - 1.25 mg/dl 10/30/2014 9:12 [facility] GFR, Calculated 97 >60 ml/min/1.7 3m2 10/30/2014 9:12 [facility] Comment: eGFR calculated using CKD-EPI equation for non Americans. Multiply eGFR by 1.16 for Americans. BUN 14 10 - 26 mg/dl 10/30/2014 9:12 [facility] Calcium 8.9 8.5 - 10.5 mg/dl 10/30/2014 9:12 [facility] Calculated Calcium 9.7 8.5 - 10.5 mg/dl 10/30/2014 9:12 [facility] Glucose, Serum 138(H) 70 - 100 mg/dl 10/30/2014 9:12 [facility] Fasting? No 10/30/2014 8:20 [facility] Blood specimen (specimen) BLOOD SPECIMEN / Unknown 10/30/2014 8:20 EDT 10/30/2014 8:41 EDT Brody Duran MD PhD CHEMISTRY & BLO OD GAS ORDERABLES [facility] [address] [place] [address] * (ABNORMAL) HEMAGRAM (10/30/2014 8:20 EDT) WBC 3.56(L) 4.0 - 10.4 K/cmm 10/30/2014 8:52 [facility] RBC 4.27(L) 4.36 - 5.78 M/cmm 10/30/2014 8:52 [facility] Hemoglobin 14.1 13.8 - 17.3 gm/dl 10/30/2014 8:52 EDT [facility] HCT 40.3 39.5 - 50.2 % 10/30/2014 8:52 EDT [facility] MCV 94 81 - 95 fl 10/30/2014 8:52 EDT [facility] MCH 33.0 27.6 - 33.0 pg 10/30/2014 8:52 EDT [facility] MCHC 35.0 32.8 - 36.4 gm/dl 10/30/2014 8:52 EDT [facility] RDW-CV 14.1 11.8 - 14.1 % 10/30/2014 8:52 EDT [facility] RDW-SD 46.4(H) 36.5 - 45.9 fl 10/30/2014 8:52 EDT [facility] PLT 99(L) 141 - 320 K/cmm 10/30/2014 8:52 T [facility] MPV 6.5(L) 7.5 - 11.2 fl 10/30/2014 8:52 T [facility] Blood specimen (specimen) BLOOD SPECIMEN / Unknown 10/30/2014 8:20 EDT 10/30/2014 8:41 EDT Brody Duran MD PhD HEMATOLOGY & PF 4 ORDERABLES [facility] [address] [place] [address] documented in this encounter Visit Diagnoses Diagnosis Chronic hepatitis C without mention of hepatic coma- Primary documented in this encounter Care Teams City Solicitor Relationship Specialty Start Date End Date Kamala Rosado MD [address] [address] PCP - General 10/05/13 10/19/15 documented as of this encounter
--- OUTSIDE RECORDS SUMMARY | 2024-01-20 15:55 | XMS_ITS | Encounter Summary ---
Author Organization [facility] Address [address] [place] [address] Care Team Providers Care Topographic Computator Name Role Phone Kamala Rosado MD Primary Care Provider [phone] Encounter Details Date Type Department Care Team (Late st Contact Info) Description 10/03/2014 Phlebotomy Only [facility] [address] [place] [address] Public Aid Eligibility Assistant, Outpatient Chronic hepatitis C without mention of [...] Visit [facility] General Surgery - [facility] [address] [place], [place] [address] Bon Gutierrez MD 111 [facility], [address] [place] [address] 09/10/2024 10:00 EDT Appointment Shaina Bergeron Ultrasound [address] [place] [address] documented as of this encounter [...] 10.1 - 13.0 secs 10/03/2014 9:31 EDT [facility] Comment: New prothrombin t doug range effective 09/17/14 I.N.R. 1.1 0.9 - 1.1 Ratio 10/03/2014 9:31 EDT [facility] Comment: Moderate Intensity Coumadin INR = 2.0-3.0 Adjustments in anticoagulant therapy dose should be based upon the INR and NOT the Pro Time. Blood specimen (specimen) BLOOD SPECIMEN / Unknown 10/03/2014 8:40 EDT 10/03/2014 9:09 EDT Brody Duran MD PhD HEMATOLOGY & PF 4 ORDERABLES [facility] [address] [place] [address] * (ABNORMAL) COMPREHENSIVE METABOLIC PANEL (CMP) (10/03/2014 8:40 EDT) Potassium 4.3 3.5 - 5.0 mEq/L 10/03/2014 9:38 [facility] Sodium 143 136 - 145 mEq/L 10/03/2014 9:38 [facility] Chloride 108 96 - 110 mEq/L 10/03/2014 9:38 [facility] CO2 27 24 - 32 mEq/L 10/03/2014 9:38 [facility] Total Alkaline Phosphatase 103 38 - 126 U/L 10/03/2014 9:38 [facility] Bilirubin, Total 1.6(H) <1.4 mg/dl 10/04/19 15 9:38 [facility] AST 28 15 - 46 U/L 10/03/2014 9:38 [facility] ALT 33 21 - 72 U/L 10/03/2014 9:38 [facility] Albumin 4.0 3.4 - 4.9 g/dl 10/03/2014 9:38 [facility] Total Protein 7.0 6.5 - 8.3 g/dl 10/03/2014 9:38 [facility] Creatinine 0.80 0.66 - 1.25 mg/dl 10/03/2014 9:38 [facility] GFR, Calculated >60 >60 ml/min/1.7 3m2 10/03/2014 9:38 [facility] BUN 20 10 - 26 mg/dl 10/03/2014 9:38 [facility] Calcium 9.9 8.5 - 10.5 mg/dl 10/03/2014 9:38 [facility] Calculated Calcium 10.3 8.5 - 10.5 mg/dl 10/03/2014 9:38 [facility] Glucose, Serum 122(H) 70 - 100 mg/dl 10/03/2014 9:38 [facility] Fasting? YES 10/03/2014 8:40 [facility] Blood specimen (specimen) BLOOD SPECIMEN / Unknown 10/03/2014 8:40 EDT 10/03/2014 9:09 EDT Brody Duran MD PhD CHEMISTRY & BLO OD GAS ORDERABLES [facility] [address] [place] [address] * (ABNORMAL) HEMAGRAM (10/03/2014 8:40 EDT) WBC 4.13 4.0 - 10.4 K/cmm 10/03/2014 9:17 [facility] RBC 4.55 4.36 - 5.78 M/cmm 10/03/2014 9:17 [facility] Hemoglobin 15.0 13.8 - 17.3 gm/dl 10/03/2014 9:17 [facility] HCT 42.9 39.5 - 50.2 % 10/03/2014 9:17 [facility] MCV 94 81 - 95 fl 10/03/2014 9:17 [facility] MCH 33.0 27.6 - 33.0 pg 10/03/2014 9:17 [facility] MCHC 35.0 32.8 - 36.4 gm/dl 10/03/2014 9:17 [facility] RDW-CV 14.3(H) 11.8 - 14.1 % 10/03/2014 9:17 [facility] RDW-SD 46.8(H) 36.5 - 45.9 fl 10/03/2014 9:17 [facility] PLT 100(L) 141 - 320 K/cmm 10/03/2014 9:17 [facility] MPV 6.7(L) 7.5 - 11.2 fl 10/03/2014 9:17 [facility] Blood specimen (specimen) BLOOD SPECIMEN / Unknown 10/03/2014 8:40 EDT 10/03/2014 9:09 EDT Brody Duran MD PhD HEMATOLOGY & PF 4 ORDERABLES [facility] [address] [place] [address] documented in this encounter Visit Diagnoses Diagnosis Chronic hepatitis C without mention of hepatic coma- Primary documented in this encounter Care Teams Topographic Computator Relationship Specialty Start Date End Date Kamala Rosado MD [address] [address] PCP - General 10/05/13 10/19/15 documented as of this encounter
--- OUTSIDE RECORDS SUMMARY | 2024-01-20 15:55 | XMS_ITS | Encounter Summary ---
Author Organization [facility] Address [address] [place] [address] Care Team Providers Care Sewer Pipe Layer Helper Name Role Phone Kamala Rosado MD Primary Care Provider [phone] Unknown, Provider Primary Care Provider [phone] Sari Salgado MD Primary Care Provider [phone] Unknown, Provider Primary Care Provider [phone] Elissa Alejo PA-C Primary Care Provider [phone] Laurie Wiggins MD Primary Care Provider [phone] Katia Blanco Primary Care Provider [phone] Encounter Details Date Type Department Care Team (Late st Contact Info) Description 05/15/2014 Orders Only [facility] Gastroenterology - [place] [address] [place], [place] [id number] [address] Denise Social History Tobacco Use [...] Visit [facility] General Surgery - [address] [address] Bon Gutierrez MD 111 [facility], [address] [place] [phone] 09/10/2024 10:00 EDT Appointment Shaina Bergeron [address] [phone] documented as of this encounter Visit Diagnoses Not on filedocumented in this encounter Care Teams Sewer Pipe Layer Helper Relationship Specialty Start Date End Date Kamala Rosado MD [address] [address] PCP - General 10/05/13 10/19/15 Unknown, MD Kristy PCP - General 10/20/15 10/20/15 Sari Salgado MD PCP - General 10/21/15 11/07/16 Unknown, Provider, PCP - General 11/08/16 11/08/16 Elissa Alejo, PA-C [address] [facility] [address] [phone] PCP - General 11/09/16 05/07/18 Laurie iWggins MD [address] [place] [address] [place] [phone] PCP - General 05/08/18 03/25/19 Katia Blanco FNP [address] [place] [address] PCP - General 03/26/19 09/20/22 documented as of this encounter
--- OUTSIDE RECORDS SUMMARY | 2024-01-20 15:55 | XMS_ITS | Encounter Summary ---
Author Organization [facility] Address [address] [place] [address] Care Team Providers Care Web Site Specialist Name Role Phone Kamala Rosado MD Primary Care Provider [phone] Reason for Visit * Reason Onset Date Comments Medication Management 10/04/2014 Encounter Details Date Type Department Care Team (Late st Contact Info) Description 10/04/2014 Telephone [facility] [place] [address] [address] [facility] Medication Management Social History Tobacco [...] Encounter - Ct Martinez RPH - 10/04/2014 1130 EDT Reviewed wk20 HCV labs results: as [...] Visit [facility] General Surgery - [facility] [address] [place], [place] [address] Bon Gutierrez MD 111 [facility], [address] [place] [phone] 09/10/2024 10:00 EDT Appointment Shaina Mejia [address] [place] [address] documented as of this encounter Visit Diagnoses Not on filedocumented in this encounter Care Teams Web Site Specialist Relationship Specialty Start Date End Date Kamala Rosado MD [address] [address] PCP - General 10/05/13 10/19/15 documented as of this encounter
--- OUTSIDE RECORDS SUMMARY | 2024-01-20 15:55 | XMS_ITS | Encounter Summary ---
Author Organization [facility] Address [address] [place] [address] Care Team Providers Care Maintenance Plumber Name Role Phone Kamala Rosado MD Primary Care Provider [phone] Encounter Details Date Type Department Care Team (Late st Contact Info) Description 09/04/2014 8:50 EDT - 09/04/2014 23:59 EDT Hospital Encounter [address] [address] Unknown, Provider, Brody Duran MD PhD [address] [place] [address], [address] [place] [address] Discharge Disposition: Auto Discharge Social [...] Refills Start Date End Date GLUC/PRANAV-MSM#2/C/D3/MAHESH /BORN ([id number] WITH VIT D ORAL) Take 1 Tab [...] [facility] General Surgery - [facility] [address] [place], [place] [id number] Bon Gutierrez MD 111 [facility], [address] [place] [address] 09/10/2024 10:00 EDT Appointment Shaina Mejia [address] [place] [address] documented as of this encounter Visit Diagnoses Not on filedocumented in this encounter Care Teams Maintenance Plumber Relationship Specialty Start Date End Date Kamala Rosado MD [address] [address] PCP - General 10/05/13 10/19/15 documented as of this encounter
--- OUTSIDE RECORDS SUMMARY | 2024-01-20 15:55 | XMS_ITS | Encounter Summary ---
Author Organization [facility] Address [address] [place] [address] Care Team Providers Care Quality Assurance Representative Name Role Phone Kamala Rosado MD Primary Care Provider [phone] Reason for Visit * Reason Comments Follow-up follow up for Yumiko haji, pt states that he's doing well but tired Encounter Details Date Type Department Care Team (Late st Contact Info) Description 09/05/2014 14:00 EDT Office Visit [facility] Gastroenterology - [address] [address] Brody Duran MD PhD [address] [place] [address] [address] [place] [address] Chronic hepatitis C without mention [...] Duran MD - 09/05/2014 191 EDT [facility] GASTROENTEROLOGY AND HEPATOLOGY PROGRESS / FOLLOWUP NOTE - 09/05/2014 Kamala Rosado MD [address], [address] [place] [address] Rosado: This is to let you know that I have seen your patient, Alonzo Urbina in the office today. 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 He [...] to be an IPMN).Surveillance abdominal MRI at [facility] in July 2014 did not [...] PM - Brody Duran MD,PhD Dictation ID: [id number] cc: Guicho Rosales MD, [facility] - Radiology [address] [place] [address] Kamala Rosado MD, [address], [address], [place] [address] * Brody Duran MD - 09/05/2014 0884 EDT This office note has been dictated. documented in this encounter Plan of Treatment Upcoming Encounters Date Type Department Care Team (Late st Contact Info) Description 01/23/2024 10:00 EDT Office Visit [facility] General Surgery - [facility] [address] [place], [place] [address] Bon Gutierrez MD [address] [facility], [address] [place] [phone] 09/10/2024 10:00 EDT Appointment Shaina Bergeron [place] [address] [place], [place] [address] documented as of this encounter Visit Diagnoses [...] 11/12/2014 added in this encounter Care Teams Quality Assurance Representative Relationship Specialty Start Date End Date Kamala Rosado MD [address] [address] PCP - General 10/05/13 10/19/15 documented as of this encounter
--- OUTSIDE RECORDS SUMMARY | 2024-01-20 15:56 | XMS_ITS | Encounter Summary ---
Author Organization [facility] Address [address] [place] [address] Care Team Providers Care Certified Medication Aide Name Role Phone Kamala Rosado MD Primary Care Provider [phone] Reason for Referral * Radiology Services (Routine) - Closed Specialty Diagnoses / Procedures Referred By [facility] Referred To Contact Diagnoses Hepatitis C Cirrhosis (HCC-CMS) Portal hypertension (HCC-CMS) Esophageal varices (HCC-CMS) Portal hypertensive gastropathy (HCC-CMS) S/P TIPS (transjugular intrahepatic portosystemic shunt) Procedures RAD US LIVER WITH DOPPLER Guicho Rosales MD 111 [facility] [address] [place] [address] Referral ID Status Reason Start Date Expiration Date Visits Re quested Visits Authorized [id number] Closed 01/28/2014 1 1 Encounter Details Date Type Department Care Team (Late st Contact Info) Description 01/28/2014 Orders Only [facility] Interventional Radiology - [facility] [address] [place] [address] Zac Rollins MD [address] [place] [phone] Hepatitis C (Primary Dx); Cirrhosis (CMS-HCC) [...] Info) Description 01/23/2024 10:00 EDT Office Visit [facility] General Surgery - [address] [address] Bon Gutierrez MD [address] [place] [address], [address] [place] [address] 09/10/2024 10:00 EDT Appointment Shaina Bergeron Ultrasound [address] [place] [address] documented as of this encounter Procedures [...] Symptoms/Comments: ??070.70-Unspecified viral hepatitis C without hepatic tlmz-SSH-1-CM 571.5-Cirrhosis of liver without mention of gpqnebc-ZJC-6-CM; 58M with cirrhosis, hepatitis, GI bleeding. S/P [...] Symptoms/Comments: 070.70-Unspecified viral hepatitis C without hepatic fxqx-UIH-1-CM 571.5-Cirrhosis of liver without mention of shkqnqe-HMF-1-CM; 58M with cirrhosis, hepatitis, GI bleeding. S/P [...] status documented in this encounter Care Teams Certified Medication Aide Relationship Specialty Start Date End Date Kamala Rosado MD [address] [address] PCP - General 10/05/13 10/19/15 documented as of this encounter
--- OUTSIDE RECORDS SUMMARY | 2024-01-20 15:56 | XMS_ITS | Encounter Summary ---
Author Organization [facility] Address [address] [place] [address] Care Team Providers Care Call Center Receptionist Name Role Phone Kamala Rosado MD Primary Care Provider [phone] Reason for Visit * Reason Comments Rectal Bleeding pt started to have b loody stools about one week ago for 2 dys then resolved. has had loose black stools for about 2 dys with fatigue and abd pain Encounter Details Date Type Department Care Team (Late st Contact Info) Description 10/05/2013 20:27 EDT - 10/06/2013 15:20 EDT Hospital Encounter [facility] Hematology & Oncology Unit [address], [place] [address] Deedee Silver PA-C 111 [facility], [address] [place] [address] Radha Gamboa MD [address] [address] GI bleed (Primary Dx); Cirrhosis [...] Used ??? Alcohol Use: No Lives in [place], [place], with fiance; on disability due to [...] 13:55 * José Catalan MD - 10/05/2013 1119 EDT Gastroenterology & Hepatology Consult Note The [...] examined with Dr. Alayna Jennings MD Pager #[phone] Gastroenterology & Hepatology Fellow 10/05/2013 17:39 HPI: [...] Notes * Hong Brody RN - 10/05/2013 6105 EDT Pt transferred to [facility] via in stable condition with transport. * Deedee Silver PA - 10/05/2013 2354 EDT DOS: 10/05/2013 Chief Complaint Patient presents [...] hospitalizations at both department and here at [facility]. Last admission was 06/22. Should not also [...] Number Unit ABO Unit Rh Cross Match [facility] 10/05/13 18:42:00 10/05/13 19:19:58 E0382 -3 RED BLOOD CELLS, Leukocytes Reduced [id number] A POS Compatible Collection Time Result Time Unit Status 10/05/13 18:42:00 10/05/13 19:19:58 Crossmatch PREPARE RED BLOOD CELLS (Final result) Component (Lab Inquiry) Collection Time Result Time Product Code Donor Number Unit ABO Unit Rh Cross Match [facility] 10/05/13 18:42:00 10/05/13 19:19:59 E0382 -3 RED BLOOD CELLS, Leukocytes Reduced [id number] A POS Compatible Collection Time Result Time Unit Status 10/05/13 18:42:00 10/05/13 19:19:59 Crossmatch PREPARE RED BLOOD CELLS (Final result) Component (Lab Inquiry) Collection Time Result Time Product Code Donor Number Unit ABO Unit Rh Cross Match [facility] 10/05/13 18:42:00 10/05/13 19:20:00 E0382 -3 RED BLOOD CELLS, Leukocytes Reduced [id number] POS Compatible Collection Time Result Time Unit Status 10/05/13 18:42:00 10/05/13 19:20:00 Crossmatch PREPARE RED BLOOD CELLS (Final result) Component (Lab Inquiry) Collection Time Result Time Product Code Donor Number Unit ABO Unit Rh Cross Match [facility] 10/05/13 18:42:00 10/05/13 19:20:02 E0382 -3 RED BLOOD CELLS, Leukocytes Reduced [id number] POS Compatible Collection Time Result Time [...] Neg Neg Collection Time Result Time Specific [place] Blood pH Protein Urobilinogen 10/05/13 15:45:00 10/05/13 15:54:31 1.025 Neg 5.5 Neg 0.2 Collection Time Result Time Nitrite Leuk Esterase TECH ID 10/05/13 15:45:00 10/05/13 15:54:31 Neg Neg [id number] Test performed at Emergency Department ELECTROLYTES (Final [...] ???Call Someone Now?? pamphlet, advanced directives information, [facility] falls prevention information, provided to and reviewed with Patient. R: Call Sullivan: Pt demonstrates appropriate use. Advance Directives: Pt has advanced directives not yet on file @ [facility]. Fall Precautions and: Call Someone Now Pt verbalizes understanding of printed materials. Pt resting comfortably in bed with call sullivan in reach. Will continue to monitor throughout the night. Shantal Beverly RN 10/05/2013 21:30 documented in this encounter Plan of Treatment Upcoming Encounters Date Type Department Care Team (Late st Contact Info) Description 01/23/2024 10:00 EDT Office Visit [facility] General Surgery - [facility] [address], [place] [address] Bon Gutierrez MD 111 [facility], [address] [place] [phone] 09/10/2024 10:00 EDT Appointment Shaina Mejia [address] [place] [address] Pending Results Name Type Priority Associated Diagnoses [...] K/cmm [facility]+ [facility] Comment: Anisocytosis 1+ Ovalocytes Type of Diff: Manual [facility] 10/06/2013 6:22 EDT 10/06/2013 7:15 EDT Haile Zuniga MD HEMATOLOGY & PF4 OR DERABLES Performing Organization Address [facility] de Phone Number [facility] [address] [place] [address] * (ABNORMAL) HEMAGRAM (10/06/2013 6:22 EDT) WBC [...] & PF4 OR DERABLES Performing Organization Address [facility] de Phone Number [facility] [address] [place] [address] * CREATININE (10/06/2013 6:22 EDT) Creatinine 0.70 0.66 - 1.25 mg/dl [facility] GFR, Calculated >60 >60 ml/min/1.7 3m2 [facility] Blood specimen (specimen) 10/06/2013 6:22 EDT 10/06/2013 7:15 EDT Haile Zuniga MD CHEMISTRY & BLOOD G ORDERABLES Performing Organization Address [facility] de Phone Number [facility] [address] [place] [address] * BUN (10/06/2013 6:22 EDT) BUN 20 10 - 26 mg/dl [facility] Blood specimen (specimen) 10/06/2013 6:22 EDT 10/06/2013 7:15 EDT Haile Zuniga MD CHEMISTRY & BLOOD G ORDERABLES Performing Organization Address [facility] de Phone Number [facility] [address] [place] [address] * (ABNORMAL) ELECTROLYTES (10/06/2013 6:22 EDT) Sodium 141 136 - 145 mEq/L [facility] Potassium 4.1 3.5 - 5.0 mEq/L [facility] Chloride 106 96 - 110 mEq/L [facility] CO2 23(L) 24 - 32 mEq/L [facility] Blood specimen (specimen) 10/06/2013 6:22 EDT 10/06/2013 7:15 EDT Haile Zuniga MD CHEMISTRY & BLOOD G ORDERABLES Performing Organization Address [facility] de Phone Number [facility] [address] [place] [address] * PROTIME (10/06/2013 6:22 EDT) Pro Time [...] & PF4 OR DERABLES Performing Organization Address [facility] de Phone Number [facility] [address] [place] [address] * BILIRUBIN, TOTAL (10/06/2013 6:22 EDT) Bilirubin, Total <0.5 <1.4 mg/dl [facility] Comment:Sample retested, res ult confirmed Blood specimen (specimen) 10/06/2013 6:22 EDT 10/06/2013 7:15 EDT Haile Zuniga MD CHEMISTRY & BLOOD G ORDERABLES Performing Organization Address [facility] de Phone Number [facility] [address] [place] [address] * ALKALINE PHOSPHATASE (10/06/2013 6:22 EDT) Total Alkaline Phosphatase 84 38 - 126 U/L [facility] Blood specimen (specimen) 10/06/2013 6:22 EDT 10/06/2013 7:15 EDT Haile Zuniga MD CHEMISTRY & BLOOD G ORDERABLES Performing Organization Address [facility] de Phone Number [facility] [address] [place] [address] * (ABNORMAL) AST (10/06/2013 6:22 EDT) AST 104(H) 15 - 46 U/L [facility] Comment:Sample retested, res ult confirmed Blood specimen (specimen) 10/06/2013 6:22 EDT 10/06/2013 7:15 EDT Haile Zuniga MD CHEMISTRY & BLOOD G ORDERABLES Performing Organization Address [facility] de Phone Number [facility] [address] [place] [address] * (ABNORMAL) ALT (10/06/2013 6:22 EDT) ALT 88(H) 21 - 72 U/L [facility] Blood specimen (specimen) 10/06/2013 6:22 EDT 10/06/2013 7:15 EDT Haile Zuniga MD CHEMISTRY & BLOOD G ORDERABLES Performing Organization Address [facility] de Phone Number [facility] [address] [place] [address] * SCREENING GLUCOSE (10/06/2013 6:22 EDT) Pathologist [facility] Glucose, Screening 92 70 - 100 mg/dl [facility] Blood specimen (specimen) 10/06/2013 6:22 EDT 10/06/2013 7:15 EDT Haile Zuniga MD CHEMISTRY & BLOOD G ORDERABLES Performing Organization Address [facility] Phone Number [facility] [address] [place] [address] * ANTIBODY IDENTIFICATION (10/05/2013 19:17 EDT) [facility] Antibody Identification Anti-E Anti-c (little) [facility] 10/05/2013 19:1 7 EDT Provider Unknown BLOOD BANK TESTS Performing Organization Address [facility] de Phone Number [facility] * PREPARE RED BLOOD CELLS (10/05/2013 18:42 EDT) [facility] Product Code E0382 -3 RED BLOOD CELLS, Leukocytes Reduced [facility] Donor Number [id number] [facility] Unit ABO A [facility] Unit Rh POS [facility] Cross Match Interp Compatible [facility] Unit Status Released From [facility] 10/05/2013 18:4 2 EDT Provider Unknown BLOOD BANK ORDERABLE S Performing Organization Address [facility]/ZIP Co de Phone Number [facility] * PREPARE RED BLOOD CELLS (10/05/2013 18:42 EDT) Product Code E0382 -3 RED BLOOD CELLS, Leukocytes Reduced [facility] Donor Number [id number] [facility] Unit ABO A [facility] Unit Rh POS [facility] Cross Match Interp Compatible [facility] Unit Status Released From [facility] BLOOD BANK 10/05/2013 18:4 2 EDT Provider Unknown MD BLOOD BANK ORDERABLE S [facility] * PREPARE RED BLOOD CELLS (10/05/2013 18:42 EDT) Product Code E0382 -3 RED BLOOD CELLS, Leukocytes Reduced [facility] Donor Number [id number] [facility] Unit ABO A [facility] Unit Rh POS [facility] Cross Match Interp Compatible [facility] Unit Status Released From [facility] BLOOD BANK 10/05/2013 18:4 2 EDT Provider Unknown BLOOD BANK ORDERABLE S [facility] * PREPARE RED BLOOD CELLS (10/05/2013 18:42 EDT) Product Code E0382 -3 RED BLOOD CELLS, Leukocytes Reduced [facility] Donor Number [id number] [facility] Unit ABO A [facility] Unit Rh POS [facility] Cross Match Interp Compatible [facility] Unit Status Released From [facility] BLOOD BANK 10/05/2013 18:4 2 EDT Provider Unknown BLOOD BANK ORDERABLE S [facility] * E ANTIGEN (10/05/2013 18:27 EDT) E Antigen Negative [facility] 10/05/2013 18:2 7 EDT Provider Unknown MD BLOOD BANK TESTS Performing Organization Address City/[facility]/ZIP Co de Phone Number [facility] * C ANTIGEN (LITTLE) (10/05/2013 18:27 EDT) c Antigen (little) Negative [facility] 10/05/2013 18:2 7 EDT Provider Unknown MD BLOOD BANK TESTS Performing Organization Address [facility] de Phone Number [facility] * ANTIBODY IDENTIFICATION (10/05/2013 17:39 EDT) Antibody Identification Anti-E Anti-c (joseph) [employer] BLOOD BANK 10/05/2013 17:3 9 EDT Provider Unknown MD BLOOD BANK TESTS Performing Organization Address [facility] de Phone Number [facility] * BLOOD BANK ADDITIONAL SPECIMEN (10/05/2013 17:35 EDT) ABO A [facility] Rh Factor Positive [facility] 10/05/2013 17:3 5 EDT Provider Unknown MD BLOOD BANK TESTS Performing Organization Address City/[facility]/ZIP Co de Phone Number [facility] * POCT URINE DIPSTICK (10/05/2013 15:45 EDT) Color YELLOW [facility] Clarity, UA Clear [facility] Glucose Neg Neg [facility] Bilirubin Neg Neg [facility] Ketones Neg Neg [facility] Specific [place] 1.025 1.001 - 1.035 [facility] Blood Neg Neg [facility] pH 5.5 4.6 - 8.0 [facility] Protein Neg Neg [facility] Urobilinogen 0.2 0.2 - 1.0 E.U./dl [facility] Nitrite Neg Neg [facility] Leuk Esterase Neg Neg [facility] weatherization specialist ID [id number] [facility] Comment:Test performed at [facility] Urine specimen (specimen) 10/05/2013 15:45 EDT 10/05/2013 15:54 EDT Deedee Silver PA-C POINT OF CARE TE ST ORDERABLES Performing Organization Address [facility] de Phone Number [facility] [address] [place] [address] * (ABNORMAL) DIFFERENTIAL (10/05/2013 14:51 EDT) % [...] HEMATOLOGY & PF4 ORDERABLES Performing Organization Address [facility] de Phone Number [facility] [address] [place] [address] * (ABNORMAL) HEMAGRAM (10/05/2013 14:51 EDT) WBC [...] HEMATOLOGY & PF4 ORDERABLES Performing Organization Address [facility] de Phone Number [facility] [address] [place] [address] * PROTIME (10/05/2013 14:51 EDT) Pro Time [...] HEMATOLOGY & PF4 ORDERABLES Performing Organization Address [facility]/ZIP Co de Phone Number [facility] [address] [place] [address] * LIPASE (10/05/2013 14:51 EDT) Pathologist [facility] Lipase 227 0 - 250 U/L [facility] Blood specimen (specimen) 10/05/2013 14:51 EDT 10/05/2013 15:06 EDT Deedee Silver PA-C CHEMISTRY & BLOO D GAS ORDERABLES Performing Organization Address [facility] de Phone Number [facility] [address] [place] [address] * (ABNORMAL) HEPATIC FUNCTION PANEL (ALB,ALK PHOS,ALT,AST,DBIL,TOT MARVEL,TOT PROT) (10/05/2013 14:51 EDT) [facility] Albumin 4.0 3.4 - 4.9 g/dl [facility] Total Protein 7.9 6.5 - 8.3 g/dl [facility] Total Alkaline Phosphatase 100 38 - 126 U/L [facility] ALT 103(H) 21 - 72 U/L [facility] AST 158(H) 15 - 46 U/L [facility] Unconjugated Bilirubin 0.8 0.0 - 1.1 mg/dl [facility] Conjugated Bilirubin 0.0 0.0 - 0.3 mg/dl [facility] Bilirubin, Total 1.1 <1.4 mg/dl [facility] Blood specimen (specimen) 10/05/2013 14:51 EDT 10/05/2013 15:06 EDT Deedee Silver PA-C CHEMISTRY & BLOO D GAS ORDERABLES Performing Organization Address [facility] de Phone Number [facility] [address] [place] [address] * CREATININE (10/05/2013 14:51 EDT) Pathologist [facility] Creatinine 0.70 0.66 - 1.25 mg/dl [facility] GFR, Calculated >60 >60 ml/min/1.7 3m2 [facility] Blood specimen (specimen) 10/05/2013 14:51 EDT 10/05/2013 15:06 EDT Deedee Silver PA-C CHEMISTRY & BLOO D GAS ORDERABLES Performing Organization Address [facility] de Phone Number [facility] [address] [place] [address] * BUN (10/05/2013 14:51 EDT) BUN 24 10 - 26 mg/dl [facility] Blood specimen (specimen) 10/05/2013 14:51 EDT 10/05/2013 15:06 EDT Deedee Silver PA-C CHEMISTRY & BLOO D GAS ORDERABLES Performing Organization Address [facility] Phone Number [facility] [address] [place] [address] * (ABNORMAL) ELECTROLYTES (10/05/2013 14:51 EDT) Sodium 140 136 - 145 mEq/L [facility] Potassium 4.5 3.5 - 5.0 mEq/L [facility] Chloride 106 96 - 110 mEq/L [facility] CO2 22(L) 24 - 32 mEq/L [facility] Blood specimen (specimen) 10/05/2013 14:51 EDT 10/05/2013 15:06 EDT Deedee Silver PA-C CHEMISTRY & BLOO D GAS ORDERABLES Performing Organization Address [facility] de Phone Number [facility] [address] [place] [address] * TYPE AND SCREEN (10/05/2013 14:40 EDT) ABO A [facility] Rh Factor Positive [facility] Antibody Screen Positive [facility] Comment:sample expires 2013 at 23:59. [...] 09/10 documented in this encounter Care Teams Call Center Receptionist Relationship Specialty Start Date End Date Kamala Rosado MD [address] [address] PCP - General 10/05/13 10/19/15 documented as of this encounter
--- OUTSIDE RECORDS SUMMARY | 2024-01-20 15:56 | XMS_ITS | Encounter Summary ---
Author Organization [facility] Address [address] [place] [address] Care Team Providers Care Recovery Unit Operator Name Role Phone Kamala Rosado MD Primary Care Provider [phone] Reason for Visit * Reason Onset Date Comments Other 01/07/2014 Encounter Details Date Type Department Care Team (Late st Contact Info) Description 01/07/2014 Telephone [facility] Gastroenterology - [address] [id number] Brody Duran MD PhD 111 [facility], [address] [place] [address] Other Social History Tobacco Use [...] at his PCP.s office Dr.Clea Rosado in [place]. He would like ,s input. was made [...] System [facility] General Surgery - [facility] [address] [place], [place] [address] Bon Gutierrez MD [address] [facility], [address] [place] [address] 09/10/2024 10:00 EDT Appointment Shaina [facility]on [phone] [place], [place] [phone] documented as of this encounter Visit Diagnoses Not on filedocumented in this encounter Care Teams Recovery Unit Operator Relationship Specialty Start Date End Date Kamala Rosado MD [address] [phone] PCP - General 10/05/13 10/19/15 documented as of this encounter
--- OUTSIDE RECORDS SUMMARY | 2024-01-20 15:56 | XMS_ITS | Encounter Summary ---
Author Organization [facility] Address [address] [place] [address] Care Team Providers Care Clam Treader Name Role Phone Kamala Rosado MD Primary Care Provider [phone] Reason for Visit * Reason Comments Hemoptysis I starting coughing up blood recently has been having Rectal blood has been feeling tired was recently DC from hospital, states has low hct. Encounter Details Date Type Department Care Team (Late st Contact Info) Description 01/22/2014 11:35 EDT - 01/29/2014 11:55 EDT Hospital Encounter [facility] [address] [place] [address] Kalani Parsons MD 111 [facility], Level 1 [place] [phone] Manoj Valencia MD [address] [phone] Louisa Gurrola MD MPH [address] [phone] GI bleed (Primary Dx); Hematemesis; [...] with [facility] (--) [address] [facility] [address] Follow-Up Appointments and Procedures Recommended to Patient: Follow-up appointments and procedures You will follow up with interventional radiology in about 3 months, they will call to schedule an appt. Their number is [phone] You also have an appt with Dr. Nath of GI on Mar 15 at 1pm . Their number is [phone] Future Appointments Date Time Provider Department Center [...] patient today: 35 Minutes LOUISA GURROLA MD [facility] Inpatient Service 01/29/2014 12:33 documented in this [...] to schedule an appt. Their number is [phone] You also have an appt with Dr. Nath of GI on Mar 15 at 1pm . Their number is [phone] documented in this encounter Medications at Time [...] documented in this encounter Progress Notes * MANAGER SALT, SCAN 2 - 02/15/2014 0330 EST * [...] 12:08 * Zac Rollins MD - 01/29/2014 0736 EDT Interventional Radiology Progress Note Admit Date: [...] months (we will coordinate). IR clinic #: [id number] - OK for discharge from IR perspective, [...] diet. * Louisa Gurrola MD - 01/28/2014 0902 EDT Medicine Progress Note Admit Date: 01/22/2014 [...] in the note above. LOUISA GURROLA MD [facility] Inpatient Service 01/28/2014 16:01 * Bishop Goins [...] Consults: GI Abdiaziz Cruz MD--PGY1 Pager # [phone] 01/27/2014 7:39 ATTENDING ATTESTATION: Date of service: [...] patient today: 25 Minutes Manoj Valencia MD [facility] Inpatient Service 01/27/2014 11:32 * Bishop Goins [...] Consults: LA NENA Cruz MD--PGY1 Pager # [phone] 01/26/2014 8:41 ATTENDING ATTESTATION: Date of service: [...] patient today: 35 Minutes Manoj Valencia MD [facility] Inpatient Service 01/26/2014 12:31 * Manoj Valencia [...] LA NENA Hancock MD PGY-2 Pager # [phone] 01/25/2014 15:05 ATTENDING ATTESTATION: Date of service: [...] patient today: 25 Minutes Manoj Valencia MD [facility] Inpatient Service 01/25/2014 16:03 * Bishop Goins [...] colonoscopies, and a capsule endoscopy performed and [facility] who presented to the ED yesterday [...] Consults: GI Abdiaziz Cruz MD--PGY1 Pager # [phone] 01/24/2014 9:54 ATTENDING ATTESTATION: Date of service: [...] patient today: 25 Minutes Manoj Valencia MD [facility] Inpatient Service 01/24/2014 12:01 * Margareth Lenz [...] services: DME Provider: Pharmacy: [facility]y in [place] LIVING ARRANGEMENTS AND ACCESSIBILITY ISSUES: House Are there any home access issues? No What in home social supports are available to the patient? Lives with significant other in [place]. ADVANCED DIRECTIVES, POA &/or COLST IN PLACE: No CULTURAL, TAOISM and/or LANGUAGE factors affecting health care/discharge planning:: [...] 01/23/2014 15:22 * BusterBishop gay - 01/23/2014 0932 EDT Internal Medicine Progress Note Admit Date: [...] colonoscopies, and a capsule endoscopy performed and [facility] who presented to the ED yesterday [...] Consults: LA NENA Cruz MD--PGY1 Pager # [phone] 01/23/2014 9:09 ATTENDING ATTESTATION: Date of service: [...] patient today: 35 Minutes Manoj Valencia MD [facility] Inpatient Service 01/23/2014 9:23 documented in this [...] OK for planned TIPS Zac Rollins MD #[id number] * Bishop Goins - 01/25/2014 1204 EDT [...] 12:05 * Manoj Valencia MD - 01/22/2014 8964 EDT Internal Medicine Admission H&P Admission Date: [...] culprit varices. During that admission he underwent [id number] which was also normal. As his melena [...] Consults: LA NENA Cruz MD--PGY1 Pager # [phone] 01/22/2014 13:34 ATTENDING ATTESTATION: Date of service: [...] documented in this encounter Procedure Notes * MANAGER SALT, SCAN 2 - 02/15/2014 0331 ESTAssociated Order(s): PROCEDURE REPORTS - SCANNED * Zac Rollins MD - 01/28/2014 1544 EDT IR Brief Procedure Note Attending: [facility] Customer Service: April Rollins Pre-op Dx: Hepatitis C, Cirrhosis, [...] appointment in 3 months Zac Rollins MD #[id number] documented in this encounter Consult Notes * [...] Alejandro MD GI and Hepatology Fellow Pager [phone] Attestation statement: I saw and examined the [...] Alejandro MD GI and Hepatology Fellow Pager [phone] * José Catalan MD - 01/22/2014 3211 EDT Gastroenterology & Hepatology Consult Note The Gastroenterology service was consulted to see Alonzo Urbina for coffee ground emesis Requesting Physician: Manoj Valencia MD HPI: 58 y.o.male with 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 His previous workup has included multiple EGD's, colonoscopies, and a capsule study at [facility] (results of these tests are scanned [...] Alayna Alejandro MD Gastroenterology & Hepatology Fellow #[id number] Attestation statement: I saw and examined the [...] 11:09:11 A Positive Positive SPECIMEN EXPIRES 01/25/2014 @8382 PREPARE RED BLOOD CELLS (Final result) Component (Lab Inquiry) Collection Time Result Time Product Code Donor Number Unit ABO Unit Rh Cross Match Interp 01/22/14 10:30:00 01/23/14 08:20:32 E0336 -1 RED BLOOD CELLS, Leukocytes Reduced [id number] POS Compatible Collection Time Result Time Unit Status 01/22/14 10:30:00 01/23/14 08:20:32 Transfuse PREPARE RED BLOOD CELLS (Final result) Component (Lab Inquiry) Collection Time Result Time Product Code Donor Number Unit ABO Unit Rh Cross Match Interp 01/22/14 10:30:00 01/26/14 07:35:44 E0336 -1 RED BLOOD CELLS, Leukocytes Reduced [id number] POS Compatible Collection Time Result Time [...] EDT Problem: PSYCHOSOCIAL Goal: Demonstrates Ability To [place] With Hospitalization Outcome: Ongoing Data: I'm just [...] Office Visit [facility] - [address] [phone] Bon Gutierrez MD 111 [facility], Level 5 [place] [phone] 09/10/2024 10:00 EDT Appointment Shaina Mejia [address] [place] [address] [phone] Pending Results Name Type Priority Associated Diagnoses [...] EST Narrative 02/15/2014 4:10 EST Procedure Note MANAGER SALT, SCAN 2 - 02/15/2014 3:31 EST Scan 2 International Relations Teacher PROCEDURE/MINOR TY GICAL ORDERABLES * TRANSFUSION RECORD - SCANNED (02/01/2014 8:48 EDT) 02/01/2014 8:48 EDT Scan 2 International Relations Teacher LAB INFO SERVICE AN D SUPPORT & [...] ORD ERABLES Performing Organization Address [facility] de Phone Number [facility] [address] [place] [address] * (ABNORMAL) HEMAGRAM (01/29/2014 5:25 EDT) WBC [...] ERABLES Performing Organization Address City/[facility] Co de Phone Number [facility] [address] [place] [address] * CREATININE (01/29/2014 5:25 EDT) Creatinine 0.87 0.66 - 1.25 mg/dl [facility] GFR, Calculated >60 >60 ml/min/1.7 3m2 [facility] Blood specimen (specimen) 01/29/2014 5:25 EDT 01/29/2014 7:02 EDT Abdiaziz Cruz MD CHEMISTRY & BLOOD GA S ORDERABLES Performing Organization Address [facility] de Phone Number [facility] [address] [place] [address] * BUN (01/29/2014 5:25 EDT) BUN 15 10 - 26 mg/dl [facility] Blood specimen (specimen) 01/29/2014 5:25 EDT 01/29/2014 7:02 EDT Abdiaziz Cruz MD CHEMISTRY & BLOOD GA S ORDERABLES Performing Organization Address [facility] de Phone Number [facility] [address] [place] [address] * ELECTROLYTES (01/29/2014 5:25 EDT) Sodium 136 [...] S ORDERABLES Performing Organization Address [facility] de Phone Number [facility] [address] [place] [address] * IR TIPS (01/28/2014 15:40 EDT) Anatomical Region Laterality Modality Other 01/28/2014 15:4 0 EDT 01/29/2014 16:01 EDT Narrative 01/29/2014 16:01 EDT TRANSJUGULAR INTRAHEPATIC PORTOSYSTEMIC SHUNT (TIPS) PLACEMENT Date: 01/28/2014 Comparisons: CT abdomen on 01/28/2014. Right upper quadrant ultrasound on 12/11/2013. Patient: Alonzo Urbina Attending: Dr. [facility] Customer Service: Dr. Zac Rollins, Dr. Guicho Chen Preprocedure [...] exchanged over a guidewire for a 4 Belgian microsheath. The microsheath was removed over a 3J guidewire and the track was dilated. A 10 Belgian Arrow sheath was placed. A 5 Belgian multipurpose catheter was advanced over a Terumo [...] into the main portal vein. A 4 Belgian multipurpose catheter was advanced into the main portal vein and portal venography was performed confirming satisfactory access. The multipurpose catheter was then removed over a Dumont guidewire. The parenchymal track was dilated with serial inflations of 4 mm diameter by 40 mm length Houston balloon. The track was further dilated with multiple inflations of an 8 mm diameter by 40 mm length Houston balloon. An initial attempt at advancing a covered stent across the parenchymal track was unsuccessful due to redundancy in the right atrium. Therefore, the Dumont guidewire was exchanged through a catheter for a stiff Amplatz guidewire. The TIPS sheath was exchanged over the Amplatz guidewire for a long 10 Belgian Arrow sheath. A 10 mm diameter by 60 cm length Fluency self-expanding covered stent was then successfully deployed across the parenchymal track. A nested 12 mm diameter by 40 mm length LifeStar self-expanding stent was then placed, flaring into the right portal vein. The stents were then dilated with serial inflations of a 10 mm diameter by 40 mm length Houston balloon. A nested 10 mm diameter by [...] Patient: Alonzo Urbina Attending: Dr. [facility] Customer Service: Dr. Zac Rollins, Dr. Guicho Chen Preprocedure [...] exchanged over a guidewire for a 4 Belgian microsheath. The microsheath was removed over a 3J guidewire and the track was dilated. A 10 Belgian Arrow sheath was placed. A 5 Belgian multipurpose catheter was advanced over a Terumo [...] into the main portal vein. A 4 Belgian multipurpose catheter was advanced into the main portal vein and portal venography was performed confirming satisfactory access. The multipurpose catheter was then removed over a Dumont guidewire. The parenchymal track was dilated with serial inflations of 4 mm diameter by 40 mm length Houston balloon. The track was further dilated with multiple inflations of an 8 mm diameter by 40 mm length Houston balloon. An initial attempt at advancing a covered stent across the parenchymal track was unsuccessful due to redundancy in the right atrium. Therefore, the Dumont guidewire was exchanged through a catheter for a stiff Amplatz guidewire. The TIPS sheath was exchanged over the Amplatz guidewire for a long 10 Belgian Arrow sheath. A 10 mm diameter by 60 cm length Fluency self-expanding covered stent was then successfully deployed across the parenchymal track. A nested 12 mm diameter by 40 mm length LifeStar self-expanding stent was then placed, flaring into the right portal vein. The stents were then dilated with serial inflations of a 10 mm diameter by 40 mm length Houston balloon. A nested 10 mm diameter by [...] agree with the findings. Elva Ibrahim MD [facility] ORDERABLES * (ABNORMAL) DIFFERENTIAL (01/28/2014 5:28 [...] PF4 ORD ERABLES [facility] [address] [place] [address] * (ABNORMAL) HEMAGRAM (01/28/2014 5:28 EDT) WBC [...] ORD ERABLES Performing Organization Address [facility] Co de Phone Number [facility] [address] [place] [address] * CREATININE (01/28/2014 5:28 EDT) Creatinine 0.89 0.66 - 1.25 mg/dl [facility] GFR, Calculated >60 >60 ml/min/1.7 3m2 [facility] Blood specimen (specimen) 01/28/2014 5:28 EDT 01/28/2014 6:14 EDT Abdiaziz Cruz MD CHEMISTRY & BLOOD GA S ORDERABLES Performing Organization Address [facility] de Phone Number [facility] [address] [place] [address] * BUN (01/28/2014 5:28 EDT) BUN 16 10 - 26 mg/dl [facility] Blood specimen (specimen) 01/28/2014 5:28 EDT 01/28/2014 6:14 EDT Abdiaziz Cruz MD CHEMISTRY & BLOOD GA S ORDERABLES Performing Organization Address [facility] Phone Number [facility] [address] [place] [address] * (ABNORMAL) ELECTROLYTES (01/28/2014 5:28 EDT) Sodium [...] S ORDERABLES Performing Organization Address [facility] Co de Phone Number [facility] [address] [place] [address] * PROTIME (01/28/2014 5:28 EDT) Pro Time [...] ORD ERABLES Performing Organization Address [facility] Co de Phone Number [facility] [address] [place] [address] * PTT (01/28/2014 5:28 EDT) Pathologist [facility] PTT 32 26 - 37 secs [facility] Comment:Therapeutic Heparin range: 65-100 seconds Blood specimen (specimen) 01/28/2014 5:28 EDT 01/28/2014 6:14 EDT Abdiaziz Cruz MD HEMATOLOGY & PF4 ORD ERABLES Performing Organization Address [facility] de Phone Number [facility] [address] [place] [address] * (ABNORMAL) DIFFERENTIAL (01/27/2014 17:52 EDT) Pathologist [...] ERABLES Performing Organization Address City/[facility] Co de Phone Number [facility] [address] [place] [address] * (ABNORMAL) HEMAGRAM (01/27/2014 17:52 EDT) WBC [...] ORD ERABLES Performing Organization Address [facility] Co de Phone Number [facility] [address] [place] [address] * (ABNORMAL) DIFFERENTIAL (01/27/2014 5:22 EDT) Neutrophils 51.0 45.5 - 79.7 % [facility] % Bands 1.0 % [facility] Lymphocytes 31.0 15.0 - 46.8 % [facility] Monocytes 13.0(H) 1.8 - 12.0 % [facility] Eosinophils 4.0 0.6 - 6.9 % [facility] ABS Neutrophils 1.18(L) 2.20 - 8.85 K/cmm [facility] ABS Bands 0.02 K/cmm [facility] ABS Lymphs 0.71(L) 1.09 - 3.30 K/cmm [facility] ABS Monocytes 0.30 0.1 - 0.8 K/cmm [facility] ABS Eosinophils 0.09 0.03 - 0.61 K/cmm [facility] Type of Diff: Manual [facility] 01/27/2014 5:22 EDT 01/27/2014 6:10 EDT Abdiaziz Cruz MD HEMATOLOGY & PF4 ORD ERABLES [facility] [address] [place] [address] * (ABNORMAL) HEMAGRAM (01/27/2014 5:22 EDT) WBC [...] ORD ERABLES Performing Organization Address [facility] Co de Phone Number [facility] [address] [place] [address] * CREATININE (01/27/2014 5:22 EDT) Creatinine 1.02 0.66 - 1.25 mg/dl [facility] GFR, Calculated >60 >60 ml/min/1.7 3m2 [facility] Blood specimen (specimen) 01/27/2014 5:22 EDT 01/27/2014 6:10 EDT Abdiaziz Cruz MD CHEMISTRY & BLOOD GA S ORDERABLES Performing Organization Address [facility] Co de Phone Number [facility] [address] [place] [address] * BUN (01/27/2014 5:22 EDT) BUN 16 10 - 26 mg/dl [facility] Blood specimen (specimen) 01/27/2014 5:22 EDT 01/27/2014 6:10 EDT Abdiaziz Cruz MD CHEMISTRY & BLOOD GA S ORDERABLES Performing Organization Address [facility] de Phone Number [facility] [address] [place] [address] * ELECTROLYTES (01/27/2014 5:22 EDT) Sodium 137 [...] S ORDERABLES Performing Organization Address [facility]/ZIP Co de Phone Number [facility] [address] [place] [address] * TRANSFUSE RED BLOOD CELLS (01/26/2014 21:54 [...] PF4 ORD ERABLES [facility] [address] [place] [address] * (ABNORMAL) HEMAGRAM (01/26/2014 17:53 EDT) WBC [...] [facility]/ZIP Co de Phone Number [facility] [address] [place] [address] * INPATIENT ADD-ON (01/26/2014 9:55 EDT) Tests to be added DIFFERENTIAL [facility] Number for problems [id number] [facility] Accession number [id number] [facility] 01/26/2014 9:55 EDT 01/26/2014 10:05 EDT Abdiaziz Cruz MD HEMATOLOGY & PF4 ORD ERABLES Performing Organization Address City/[facility] Co de Phone Number [facility] [address] [place] [address] * ANTIBODY IDENTIFICATION (01/26/2014 9:27 EDT) Antibody Identification Anti-E Anti-c (joseph) [facility] 01/26/2014 9:27 EDT Provider Unknown MD BLOOD BANK TESTS Performing Organization Address City/[facility]/ZIP Co de Phone Number [facility] * PREPARE RED BLOOD CELLS (01/26/2014 8:05 EDT) Product Code E0336 -1 RED BLOOD CELLS, Leukocytes Reduced [facility] Donor Number [id number] [facility] ABO A [facility] Unit Rh POS [facility] Cross Match Interp Compatible [facility] Unit Status Transfuse [facility]OD [facility] 01/26/2014 8:05 EDT Provider Khurram LESTER BLOOD BANK ORDERABLE S Performing Organization Address [facility]/ZIP Co de Phone Number [facility] BLOOD [facility] * PREPARE RED BLOOD CELLS (01/26/2014 8:05 EDT) Product Code E0336 -1 RED BLOOD CELLS, Leukocytes Reduced [facility] Donor Number [id number] [facility] ABO A [facility] Unit Rh POS [facility] BLOOD BANK Cross Match Interp Compatible [facility] Unit Status Transfuse [facility] Blood specimen (specimen) 01/26/2014 8:05 EDT Abdiaziz Cruz MD BLOOD BANK ORDERABLE S Performing Organization Address [facility]/ZIP Co de Phone Number [facility] BLOOD [facility] * TYPE AND SCREEN (01/26/2014 8:05 EDT) Antibody Screen Positive [facility] Comment:SPECIMEN EXPIRES AT 23:59 ON 01/29/2014 ABO A [facility] Rh Factor Positive [facility] Blood specimen (specimen) 01/26/2014 8:05 EDT Abdiaziz Cruz MD BLOOD BANK TESTS Performing Organization Address City/[facility]/ZIP Co de Phone Number [facility] * (ABNORMAL) DIFFERENTIAL (01/26/2014 [...] [facility]/ZIP Co de Phone Number [facility] [address] [place] [address] * (ABNORMAL) HEMAGRAM (01/26/2014 5:19 EDT) WBC [...] PF4 ORD ERABLES [facility] [address] [place] [address] * CREATININE (01/26/2014 5:19 EDT) Creatinine 0.90 0.66 - 1.25 mg/dl [facility] GFR, Calculated >60 >60 ml/min/1.7 3m2 [facility] Blood specimen (specimen) 01/26/2014 5:19 EDT 01/26/2014 6:32 EDT Abdiaziz Cruz MD CHEMISTRY & BLOOD GA S ORDERABLES Performing Organization Address [facility] de Phone Number [facility] [address] [place] [address] * BUN (01/26/2014 5:19 EDT) BUN 19 10 - 26 mg/dl [facility] Blood specimen (specimen) 01/26/2014 5:19 EDT 01/26/2014 6:32 EDT Abdiaziz Cruz MD CHEMISTRY & BLOOD GA S ORDERABLES Performing Organization Address [facility] de Phone Number [facility] [address] [place] [address] * (ABNORMAL) ELECTROLYTES (01/26/2014 5:19 EDT) Sodium [...] S ORDERABLES Performing Organization Address [facility] Co de Phone Number [facility] [address] [place] [address] * (ABNORMAL) HEMAGRAM (01/25/2014 6:04 EDT) WBC 2.42(L) 4.0 - 10.4 K/cmm [facility] RBC 2.58(L) 4.36 - 5.78 M/cmm [facility] Hemoglobin 7.5(L) 13.8 - 17.3 gm/dl [facility] HCT 22.0(L) 39.5 - 50.2 % [facility] MCV 85 81 - 95 fl [facility] MCH 29.2 27.6 - 33.0 pg [facility] MCHC 34.2 32.8 - 36.4 gm/dl [facility] PLT 88(L) 141 - 320 K/cmm [facility] RDW-CV 16.8(H) 11.8 - 14.1 % [facility] Comment:1+ Anisocytosis Blood specimen (specimen) 01/25/2014 6:04 EDT 01/25/2014 6:44 EDT Abdiaziz Cruz MD HEMATOLOGY & PF4 ORD ERABLES Performing Organization Address City/[facility]/ZIP Co de Phone Number [facility] [address] [place] [address] * CREATININE (01/25/2014 6:04 EDT) Creatinine 1.13 0.66 - 1.25 mg/dl [facility] GFR, Calculated >60 >60 ml/min/1.[address] [facility] Blood specimen (specimen) 01/25/2014 6:04 EDT 01/25/2014 6:44 EDT Abdiaziz Cruz MD CHEMISTRY & BLOOD GA S ORDERABLES Performing Organization Address City/[facility]/ZIP Co de Phone Number [facility] [address] [place] [address] * BUN (01/25/2014 6:04 EDT) BUN 18 10 - 26 mg/dl [facility] Blood specimen (specimen) 01/25/2014 6:04 EDT 01/25/2014 6:44 EDT Abdiaziz Cruz MD CHEMISTRY & BLOOD [place] S ORDERABLES Performing Organization Address [facility] Co de Phone Number [facility] [address] [place] [address] * (ABNORMAL) ELECTROLYTES (01/25/2014 6:04 EDT) Sodium [...] S ORDERABLES Performing Organization Address [facility] de Phone Number [facility] [address] [place] [address] * (ABNORMAL) HEMAGRAM (01/24/2014 5:26 EDT) WBC [...] ORD ERABLES Performing Organization Address [facility] Co de Phone Number [facility] [address] [place] [address] * CREATININE (01/24/2014 5:26 EDT) Creatinine 1.15 0.66 - 1.25 mg/dl [facility] GFR, Calculated >60 >60 ml/min/1.7 3m2 [facility] Blood specimen (specimen) 01/24/2014 5:26 EDT 01/24/2014 6:02 EDT Abdiaziz Cruz MD CHEMISTRY & BLOOD GA S ORDERABLES Performing Organization Address [facility] de Phone Number [facility] [address] [place] [address] * BUN (01/24/2014 5:26 EDT) BUN 21 10 - 26 mg/dl [facility] Blood specimen (specimen) 01/24/2014 5:26 EDT 01/24/2014 6:02 EDT Abdiaziz Cruz MD CHEMISTRY & BLOOD GA S ORDERABLES Performing Organization Address [facility] de Phone Number [facility] [address] [place] [address] * (ABNORMAL) ELECTROLYTES (01/24/2014 5:26 EDT) Sodium [...] S ORDERABLES Performing Organization Address [facility] Co de Phone Number [facility] [address] [place] [address] * (ABNORMAL) HEMAGRAM (01/23/2014 21:30 EDT) WBC [...] LAB RDW-CV 17.4(H) 11.8 - 14.1 % [facility] Comment:1+ Anisocytosis Blood specimen (specimen) 01/23/2014 21:30 EDT 01/23/2014 21:39 EDT Abdiaziz Cruz MD HEMATOLOGY & PF4 ORD ERABLES [facility] [address] [place] [address] * (ABNORMAL) HEMAGRAM (01/23/2014 13:57 EDT) WBC 4.56 4.0 - 10.4 K/cmm [facility] RBC 2.91(L) 4.36 - 5.78 M/cmm [facility] Hemoglobin 8.2(L) 13.8 - 17.3 gm/dl [...] ORD ERABLES Performing Organization Address [facility] Co de Phone Number [facility] [address] [place] [address] * (ABNORMAL) HEMAGRAM (01/23/2014 5:45 EDT) WBC [...] ORD ERABLES Performing Organization Address [facility] Co de Phone Number [facility] [address] [place] [address] * CREATININE (01/23/2014 5:45 EDT) Creatinine 1.01 0.66 - 1.25 mg/dl [facility] GFR, Calculated >60 >60 ml/min/1.7 3m2 [facility] Blood specimen (specimen) 01/23/2014 5:45 EDT 01/23/2014 6:18 EDT Abdiaziz Cruz MD CHEMISTRY & BLOOD GA S ORDERABLES Performing Organization Address City/[facility]/ZIP Co de Phone Number [facility] [address] [place] [address] * BUN (01/23/2014 5:45 EDT) BUN 26 10 - 26 mg/dl [facility] Blood specimen (specimen) 01/23/2014 5:45 EDT 01/23/2014 6:18 EDT Abdiaziz Cruz MD CHEMISTRY & BLOOD GA S ORDERABLES Performing Organization Address [facility] Co de Phone Number [facility] [address] [place] [address] * (ABNORMAL) ELECTROLYTES (01/23/2014 5:45 EDT) Sodium [...] ORDERABLES Performing Organization Address City/[facility] Co de Phone Number [facility] [address] [place] [address] * (ABNORMAL) SCREENING GLUCOSE (01/23/2014 5:45 EDT) Glucose, Screening 122(H) 70 - 100 mg/dl [facility] Blood specimen (specimen) 01/23/2014 5:45 EDT 01/23/2014 6:18 EDT Abdiaziz Cruz MD CHEMISTRY & BLOOD GA S ORDERABLES Performing Organization Address City/[facility] Co de Phone Number [facility] [address] [place] [address] * TRANSFUSE RED BLOOD CELLS (01/23/2014 2:01 [...] PF4 ORD ERABLES [facility] [address] [place] [address] * (ABNORMAL) GLUCOSE, GLUCOMETER (01/22/2014 16:51 EDT) Glucose, Fingerstick 185(H) 70 - 100 mg/dl [facility] Social Media Content Manager ID [id number] [facility] Comment:Test Performed by [facility] 01/22/2014 16:5 1 EDT 01/22/2014 16:52 EDT Manoj Valencia MD CHEMISTRY & BLOOD GAS ORDERABLES [facility] [address] [place] [address] * ANTIBODY IDENTIFICATION (01/22/2014 11:09 EDT) Antibody Identification Anti-E Anti-c (joseph) [facility] 01/22/2014 11:0 9 EDT Provider Unknown BLOOD BANK TESTS Performing Organization Address City/[facility]/ZIP Co de Phone Number [facility] * PREPARE RED BLOOD CELLS (01/22/2014 10:30 EDT) Product Code E0336 -1 RED BLOOD CELLS, Leukocytes Reduced [facility] Donor Number [id number] [facility] ABO A [facility] Rh POS [facility] Cross Match Interp Compatible [facility] Status Released From [facility] 01/22/2014 10:3 0 EDT Provider Unknown BLOOD BANK ORDERABLE S Performing Organization Address City/[facility]/ZIP Co de Phone Number [facility] * PREPARE RED BLOOD CELLS (01/22/2014 10:30 EDT) Product Code E0336 -1 RED BLOOD CELLS, Leukocytes Reduced [facility] Donor Number [id number] [facility] ABO A [facility] Rh POS [facility] Cross Match Interp Compatible [facility] Status Transfuse [facility] Blood specimen (specimen) 01/22/2014 10:30 EDT Kalani Parsons MD BLOOD BANK ORDE JAR[facility] * TYPE AND SCREEN (01/22/2014 10:30 EDT) ABO A [facility] Rh Factor Positive [facility] Antibody Screen Positive [facility] Comment:SPECIMEN EXPIRES @[id number] Blood specimen (specimen) 01/22/2014 10:30 EDT Kalani Parsons MD BLOOD BANK TEST S Performing Organization Address [facility] Co de Phone Number ADARSH [...] & PF 4 ORDERABLES Performing Organization Address City/[facility] Co de Phone Number [facility] [address] [place] [address] * (ABNORMAL) HEMAGRAM (01/22/2014 10:04 EDT) WBC [...] PF 4 ORDERABLES [facility] [address] [place] [address] * (ABNORMAL) COMPREHENSIVE METABOLIC PANEL (CMP) (01/22/2014 10:04 EDT) Potassium 4.8 3.5 - 5.0 mEq/L [facility] Sodium 140 136 - 145 mEq/L [facility] Chloride 108 96 - 110 mEq/L [facility] CO2 23(L) 24 - 32 mEq/L [facility] Total Alkaline Phosphatase 80 38 - 126 U/L [facility] Bilirubin, Total 0.7 <1.4 mg/dl [facility] AST 53(H) 15 - 46 U/L [...] BLO OD GAS ORDERABLES Performing Organization Address [facility] Co de Phone Number [facility] [address] [place] [address] * (ABNORMAL) PTT (01/22/2014 10:04 EDT) PTT 25(L) 26 - 37 secs [facility] Comment:Therapeutic Heparin range: 65-100 seconds Blood specimen (specimen) 01/22/2014 10:04 EDT 01/22/2014 10:13 EDT Kalani Parsons MD HEMATOLOGY & PF 4 ORDERABLES Performing Organization Address [facility] de Phone Number [facility] [address] [place] [address] * (ABNORMAL) PROTIME (01/22/2014 10:04 EDT) Pro [...] & PF 4 ORDERABLES Performing Organization Address [facility] de Phone Number [facility] [address] [place] [address] documented in this encounter Visit Diagnoses Diagnosis [...] 01/10 documented in this encounter Care Teams Clam Treader Relationship Specialty Start Date End Date Kamala Rosado MD [address] [address] PCP - General 10/05/13 10/19/15 documented as of this encounter
--- OUTSIDE RECORDS SUMMARY | 2024-01-20 15:56 | XMS_ITS | Encounter Summary ---
Author Organization [facility] Address [address] [place] [address] Care Team Providers Care Rotary Kiln Operator Name Role Phone Barbra Vaughn MD Primary Care Provider [phone] Encounter Details Date Type Department Care Team (Late st Contact Info) Description 07/10/2013 Phlebotomy Only [address] [address] [place], Outpatient Cirrhosis of liver (CMS-HCC) (HCC-CMS); Chronic [...] EDT Office Visit [facility] Surgery [address] [address] Bon Gutierrez MD [address] [facility], [facility], [address] [place] [address] 09/10/2024 10:00 EDT Appointment Sh[facility] [address] [place] [address] documented as of this encounter Procedures Procedure [...] PF 4 ORDERABLES [facility] [address] [place] [address] * (ABNORMAL) HEMAGRAM (07/10/2013 16:51 EDT) WBC [...] PF 4 ORDERABLES [facility] [address] [place] [address] * (ABNORMAL) COMPREHENSIVE METABOLIC PANEL (CMP) (07/10/2013 16:51 EDT) Potassium 4.3 3.5 - 5.0 mEq/L [facility] Sodium 144 136 - 145 mEq/L [facility] Chloride 107 96 - 110 mEq/L [facility] CO2 25 24 - 32 mEq/L [facility] Total Alkaline Phosphatase 83 38 - 126 U/L [facility] Bilirubin, Total 0.8 <1.4 mg/dl [place] [facility] AST 41 15 - 46 U/L [facility] ALT 38 21 - 72 U/L [...] OD GAS ORDERABLES [facility] [address] [place] [address] documented in this encounter Visit Diagnoses Diagnosis Cirrhosis of liver (HCC-CMS) Cirrhosis of liver without mention of alcohol Chronic hepatitis C without mention of hepatic coma documented in this encounter Care Teams Rotary Kiln Operator Relationship Specialty Start Date End Date Barbra Vaughn MD [address] [place] [address] PCP - General 02/27/13 10/04/13 documented as of this encounter
--- OUTSIDE RECORDS SUMMARY | 2024-01-20 15:56 | XMS_ITS | Encounter Summary ---
Author Organization [facility] Address [address] [place] [address] Care Team Providers Care Manager Furniture Name Role Phone Kamala Rosado MD Primary Care Provider [phone] Reason for Visit * Reason Onset Date Comments Hospital Discharge Follow Up 01/14/2014 Encounter Details Date Type Department Care Team (Late st Contact Info) Description 01/14/2014 Telephone [facility] [address] [place] [phone] [facility] Dis[facility] Follow Up Social [...] early in Feb. [facility] [phone] 01/14/2014 documented in this encounter Plan of Treatment Upcoming Encounters Date Type Department Care Team (Late st Contact Info) Description 01/23/2024 10:00 EDT Office Visit [facility] - [address] [phone] Bon Gutierrez MD [address] [facility], [address] [place] [phone] 09/10/2024 10:00 EDT Appointment Shaina [facility] [place] [address] [place], [place] [phone] documented as of this encounter Visit Diagnoses Not on filedocumented in this encounter Care Teams Manager Furniture Relationship Specialty Start Date End Date Kamala Rosado MD [address] [address] PCP - General 10/05/13 10/19/15 documented as of this encounter
--- OUTSIDE RECORDS SUMMARY | 2024-01-20 15:56 | XMS_ITS | Encounter Summary ---
Author Organization [facility] Address [address] [place] [address] Care Team Providers Care Bagel Maker Name Role Phone Kamala Rosado MD Primary Care Provider [phone] Encounter Details Date Type Department Care Team (Late st Contact Info) Description 12/11/2013 8:28 EDT - 12/11/2013 23:59 EDT Hospital Encounter [place] [phone] Brody Duran MD PhD [address] [place] [address], [address] [place] [phone] Discharge Disposition: Auto Discharge Social [...] Office Visit [facility] Surgery - [address] [phone] Bon Gutierrez MD [address] [facility], [address] [place] [phone] 09/10/2024 10:00 EDT Appointment Shaina Mejia [address] [place] [phone] documented as of this encounter Visit Diagnoses Not on filedocumented in this encounter Care Teams Bagel Maker Relationship Specialty Start Date End Date Kamala Rosado MD [address] [address] PCP - General 10/05/13 10/19/15 documented as of this encounter
--- OUTSIDE RECORDS SUMMARY | 2024-01-20 15:56 | XMS_ITS | Encounter Summary ---
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 GI bleed Portal hypertensive gastropathy (HCC-CMS) Pancytopenia (HCC-CMS) Abdiaziz Cruz MD [address] [place] [address] Referral ID Status Reason Start Date Expiration Date V isits Requested Visits Authorized [id number] Closed Continuity of Care 01/12/2014 1 1 [...] EDT - 01/12/2014 13:49 EDT Hospital Encounter [facility] General Medicine Unit [address] [place] [address] Zac Morillo MD [address] [place] [address] Karrie Rose MD 111 [facility], Level 1 [place] [phone] Joe Do MD [address] [phone] GI bleed (Primary Dx); 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; Portal hypertensive gastropathy; Pancytopenia (CMS-HCC) (HCC-[facility]) Discharge Disposition: Home or Self Care [...] Procedure Component Value Units Date/Time Methylmalonic Acid [[id number]] Collected: 01/12/14916 Lab Status: In process Updated: 01/12/14924 Specimen Information: Blood Vitamin B12 [[id number]] Collected: 01/12/14916 Lab Status: In process Updated: 01/12/14924 Specimen Information: Blood Elevated Glucose [[id number]] Collected: 01/08/14935 Lab Status: In process Updated: [...] with [facility] (--) [address] [facility] [address] Follow-Up Appointments and Procedures Recommended to Patient: [...] Cruz MD Joshua Stopak, MD--PGY1 Pager # [phone] 01/12/2014 12:59 Joe Do MD (I spent [...] Consults: LA NENA Cruz MD--PGY1 Pager # [phone] 01/11/2014 10:15 Attending attestation: I have seen [...] medications. He gets his meds at [facility], thru their medication program but some of those prescribed for him are not available at reduced rates. He had a medication policy but could not continue to afford it. Provided patient with information on the [facility] Health Information Program to assist with [...] Consults: GI Abdiaziz Cruz MD--PGY1 Pager # [phone] 01/10/2014 8:17 Attending attestation: I have seen [...] DME Provider: None Pharmacy: [facility] in [place], [place]. LIVING ARRANGEMENTS AND ACCESSIBILITY ISSUES: The patient lives in a one story house in [place], [place]. Are there any home access issues? No What in home social supports are available to the patient? Fiinna Gatica . ADVANCED DIRECTIVES, POA &/or COLST IN PLACE: Yes. The patient has an AD. His spouse is listed as the DPOA. CULTURAL, ADVENTIST and/or LANGUAGE factors affecting health care/discharge planning: Listed as none. The patient declined a visit from the spiritual care office. FUNCTIONAL & PSYCHOSOCIAL INFORMATION: The patient is independent with ADL's at baseline. MEDICAL INSURANCE IN PLACE: Medicare and [facility] financial services for: 100% PAP for [...] patient to discharge. Sherice Gray RN BSN [facility] #[id number] 01/09/2014 14:12 covering case sealer * Joe Do MD - 01/09/2014 1015 [...] Consults: GI Abdiaziz Cruz MD--PGY1 Pager # [phone] 01/09/2014 10:36 Attending attestation: I have seen [...] TIPS may be a consideration. Will contact [facility] to obtain records of his prior evaluation. [...] Consults: GI Abdiaziz Cruz MD--PGY1 Pager # [phone] 01/08/2014 20:06 Attending attestation: I have seen [...] & Physical Date: 01/08/2014 Time: 15:08 Location: [address] Planned Procedure: Gastroscopy Chief Complaint/Indications for [...] documented in this encounter Procedure Notes * VISITOR SERVICES ASSOCIATE, SCAN 2 - 01/11/2014 0042 EDTAssociated Order(s): [...] MD Gastroenterology and Hepatology Fellow #[id number] * VISITOR SERVICES ASSOCIATE, SCAN 2 - 01/09/2014 0039 EDTAssociated Order(s): [...] loss, which had been extensively evaluated at [facility], including upper endoscopy, colonoscopy and capsule [...] PRISM. Kam Alejandro MD Gastroenterology and Hepatology #[id number] Attestation statement: I saw and examined the [...] Alejandro MD GI and Hepatology Fellow Pager [phone] documented in this encounter ED Notes * [...] Asif Jha RN - 01/08/2014 1602 EDT [phone] Fang English. * Edwardo Bejarano RN - [...] 01/08/2014 1117 EDT alesia Bowers, cell phone [phone] * Uvaldo Quinn RN - 01/08/2014 1114 [...] found. * Chen Pham RN - 01/08/2014 7809 EDT Pt out of home medicines not taking, he has no money documented in this encounter Miscellaneous Notes * Plan of Care - Venecia Alamo RN - 01/12/2014 6826 EDT Problem: PAIN Goal: Patient???s Pain And [...] Care - Ana Vargas RN - 01/10/2014 8338 EDT Problem: NAUSEA AND VOMITING Goal: Patient [...] EDT Problem: PSYCHOSOCIAL Goal: Demonstrates Ability To [place] With Hospitalization Data: Patient worried that following [...] EDT Problem: PSYCHOSOCIAL Goal: Demonstrates Ability To [place] With Hospitalization Data: Pt is a new admit to [place] [address] room 421 bed 1 from ER. Action: [...] [facility] General [facility] - [address] [address] Bon Gutierrez MD [address] [place] [address], [facility], Level 5 [place] [address] 09/10/2024 10:00 EDT Appointment [facility] [address] [place] [address] Pending Results Name Type Priority Associated Diagnoses [...] S ORDERABLES Performing Organization Address [facility] Co de Phone Number [facility] [address] [place] [address] * METHYLMALONIC ACID (01/12/2014 9:17 EDT) [facility] Methylmalonic Acid 0.13 <=0.40 nmol/mL [facility] Comment: Performed or Referred by: [facility] Labs: [facility], [facility] [place] [address], Lab Dir: Richard Allan III, MD Blood specimen (specimen) 01/12/2014 9:17 EDT 01/12/2014 9:25 EDT Belle Montano MD CHEMISTRY & BLOOD GA S ORDERABLES Performing Organization Address [facility] de Phone Number [facility] [address] [place] [address] * RAPID HIV 1/2 AB (01/12/2014 9:17 EDT) [facility] Rapid HIV 1/2 Ab Negative [facility] Comment: If acute HIV-1 infection is suspected in a high risk patient, submit plasma specimen for HIV-1 RNA quantification test. Reference Range: ??Negative Assayed utilizing [employer] chemiluminescent technology. Blood specimen (specimen) 01/12/2014 9:17 EDT 01/12/2014 9:25 EDT Belle Montano MD CHEMISTRY & BLOOD GA S ORDERABLES Performing Organization Address [facility] Co de Phone Number [facility] [address] [place] [address] * INPATIENT ADD-ON (01/12/2014 8:50 EDT) [facility] Tests to be added DIFFERENTIAL TO HEMAGRAM [facility] Number for problems [id number] [facility] Accession number [id number] [facility] 01/12/2014 8:50 EDT 01/12/2014 8:51 EDT Belle Montano MD HEMATOLOGY & PF4 ORD ERABLES Performing Organization Address [facility] Co de Phone Number [facility] [address] [place] [address] * (ABNORMAL) DIFFERENTIAL (01/12/2014 5:53 EDT) Neutrophils [...] & PF4 ORD ERABLES Performing Organization Address City/[facility]/ZIP Co de Phone Number [facility] [address] [place] [address] * (ABNORMAL) HEMAGRAM (01/12/2014 5:53 EDT) WBC [...] PF4 ORD ERABLES Performing Organization Address [facility] Co de Phone Number [facility] [address] [place] [address] * ELECTROLYTES (01/12/2014 5:53 EDT) Sodium 139 136 - 145 mEq/L [facility] Potassium 3.6 3.5 - 5.0 mEq/L [facility] Chloride 109 96 - 110 mEq/L [facility] CO2 24 24 - 32 mEq/L [facility] Blood specimen (specimen) 01/12/2014 5:53 EDT 01/12/2014 6:12 EDT Abdiaziz Cruz MD CHEMISTRY & BLOOD GA S ORDERABLES Performing Organization Address [facility] de Phone Number [facility] [address] [place] [address] * CREATININE (01/12/2014 5:53 EDT) Creatinine 0.84 0.66 - 1.25 mg/dl [facility] GFR, Calculated >60 >60 ml/min/1.7 3m2 [facility] Blood specimen (specimen) 01/12/2014 5:53 EDT 01/12/2014 6:12 EDT Abdiaziz Cruz MD CHEMISTRY & BLOOD GA S ORDERABLES Performing Organization Address [facility] Co de Phone Number [facility] [address] [place] [address] * BUN (01/12/2014 5:53 EDT) BUN 14 10 - 26 mg/dl [facility] Blood specimen (specimen) 01/12/2014 5:53 EDT 01/12/2014 6:12 EDT Abdiaziz Cruz MD CHEMISTRY & BLOOD GA S ORDERABLES Performing Organization Address [facility]/ZIP Co de Phone Number [facility] [address] [place] [address] * (ABNORMAL) HEMAGRAM (01/11/2014 18:01 EDT) WBC 2.63(L) 4.0 - 10.4 K/cmm [facility] RBC 2.83(L) 4.36 - 5.78 M/cmm [facility] Hemoglobin 8.2(L) 13.8 - 17.3 gm/dl [facility] HCT 24.5(L) 39.5 - 50.2 % [facility] MCV 87 81 - 95 fl [facility] MCH 29.0 27.6 - 33.0 pg [facility] MCHC 33.6 32.8 - 36.4 gm/dl [facility] PLT 118(L) 141 - 320 K/cmm [facility] RDW-CV 20.2(H) 11.8 - 14.1 % [facility] Comment:2+ Anisocytosis Blood specimen (specimen) 01/11/2014 18:01 EDT 01/11/2014 18:21 EDT Abdiaziz Cruz MD HEMATOLOGY & PF4 ORD ERABLES Performing Organization Address City/[facility]/ZIP Co de Phone Number [facility] [address] [place] [address] * (ABNORMAL) HEMAGRAM (01/11/2014 5:42 EDT) WBC [...] PF4 ORD ERABLES Performing Organization Address [facility] Co de Phone Number [facility] [address] [place] [address] * (ABNORMAL) ELECTROLYTES (01/11/2014 5:42 EDT) Sodium [...] S ORDERABLES Performing Organization Address [facility] Co de Phone Number [facility] [address] [place] [address] * CREATININE (01/11/2014 5:42 EDT) Creatinine 1.00 0.66 - 1.25 mg/dl [facility] GFR, Calculated >60 >60 ml/min/1.7 3m2 [facility] Blood specimen (specimen) 01/11/2014 5:42 EDT 01/11/2014 6:26 EDT Abdiaziz Cruz MD CHEMISTRY & BLOOD GA S ORDERABLES Performing Organization Address City/[facility]/ZIP Co de Phone Number [facility] [address] [place] [address] * BUN (01/11/2014 5:42 EDT) BUN 16 10 - 26 mg/dl [facility] Blood specimen (specimen) 01/11/2014 5:42 EDT 01/11/2014 6:26 EDT Abdiaziz Cruz MD CHEMISTRY & BLOOD GA S ORDERABLES Performing Organization Address [facility] Co de Phone Number [facility] [address] [place] [address] * PROCEDURE REPORTS - SCANNED (01/11/2014 0:42 EDT) 01/11/2014 0:42 EDT Narrative 01/11/2014 1:28 EDT Procedure Note VISITOR SERVICES ASSOCIATE, SCAN 2 - 01/11/2014 0:42 EDT Scan 2 Diagnostic Technologist PROCEDURE/MINOR TY GICAL ORDERABLES * (ABNORMAL) HEMAGRAM [...] Abdiaziz Cruz MD HEMATOLOGY & PF4 ORD [employer]BLES [facility] [address] [place] [address] * (ABNORMAL) HEMAGRAM (01/10/2014 16:39 EDT) WBC [...] Abdiaziz Cruz MD HEMATOLOGY & PF4 ORD [employer]BLES [facility] [address] [place] [address] * (ABNORMAL) HEMAGRAM (01/10/2014 5:39 EDT) WBC [...] PF4 ORD ERABLES Performing Organization Address [facility] de Phone Number [facility] [address] [place] [address] * (ABNORMAL) ELECTROLYTES (01/10/2014 5:39 EDT) Pathologist [facility] Sodium 144 136 - 145 mEq/L [facility] Potassium 3.8 3.5 - 5.0 mEq/L [facility] Chloride 111(H) 96 - 110 mEq/L [facility] CO2 22(L) 24 - 32 mEq/L [facility] Blood specimen (specimen) 01/10/2014 5:39 EDT 01/10/2014 7:23 EDT Abdiaziz Cruz MD CHEMISTRY & BLOOD GA S ORDERABLES Performing Organization Address [facility] Co de Phone Number [facility] [address] [place] [address] * CREATININE (01/10/2014 5:39 EDT) Creatinine 0.90 0.66 - 1.25 mg/dl [facility] GFR, Calculated >60 >60 ml/min/1.7 3m2 [facility] Blood specimen (specimen) 01/10/2014 5:39 EDT 01/10/2014 7:23 EDT Abdiaziz Cruz MD CHEMISTRY & BLOOD GA S ORDERABLES Performing Organization Address [facility] Co de Phone Number [facility] [address] [place] [address] * BUN (01/10/2014 5:39 EDT) BUN 20 10 - 26 mg/dl [facility] Blood specimen (specimen) 01/10/2014 5:39 EDT 01/10/2014 7:23 EDT Abdiaziz Cruz MD CHEMISTRY & BLOOD GA S ORDERABLES Performing Organization Address [facility] Co de Phone Number [facility] [address] [place] [address] * (ABNORMAL) HEMAGRAM (01/09/2014 21:34 EDT) WBC [...] PF4 ORD ERABLES Performing Organization Address [facility] Co de Phone Number [facility] [address] [place] [address] * (ABNORMAL) HEMAGRAM (01/09/2014 16:52 EDT) WBC [...] Cottrell MD HEMATOLOGY & PF4 OR DERABLES [facility] [address] [place] [address] * (ABNORMAL) HEMAGRAM (01/09/2014 14:02 EDT) WBC [...] LAB PLT 120(L) 141 - 320 K/cmm [facility] RDW-CV 21.5(H) 11.8 - 14.1 % [facility] Comment:2+ Anisocytosis Blood specimen (specimen) 01/09/2014 14:02 EDT 01/09/2014 14:24 EDT Abdiaziz Cruz MD HEMATOLOGY & PF4 ORD [employer] Performing Organization Address [facility] de Phone Number [facility] [address] [place] [address] * (ABNORMAL) HEMAGRAM (01/09/2014 9:04 EDT) WBC [...] PF4 ORD ERABLES Performing Organization Address [facility] Co de Phone Number [facility] [address] [place] [address] * CREATININE (01/09/2014 9:04 EDT) Creatinine 0.86 0.66 - 1.25 mg/dl [facility] GFR, Calculated >60 >60 ml/min/1.7 3m2 [facility] Blood specimen (specimen) 01/09/2014 9:04 EDT 01/09/2014 9:14 EDT Belle Montano MD CHEMISTRY & BLOOD GA S ORDERABLES Performing Organization Address City/[facility] Co de Phone Number [facility] [address] [place] [address] * (ABNORMAL) BUN (01/09/2014 9:04 EDT) BUN 28(H) 10 - 26 mg/dl [facility] Blood specimen (specimen) 01/09/2014 9:04 EDT 01/09/2014 9:14 EDT Belle Montano MD CHEMISTRY & BLOOD GA S ORDERABLES Performing Organization Address [facility] Co de Phone Number [facility] [address] [place] [address] * (ABNORMAL) ELECTROLYTES (01/09/2014 9:04 EDT) Sodium [...] S ORDERABLES Performing Organization Address [facility] Co de Phone Number [facility] [address] [place] [address] * (ABNORMAL) HEMAGRAM (01/09/2014 2:02 EDT) WBC [...] & PF4 ORDERABLES [facility] [address] [place] [address] * PROCEDURE REPORTS - SCANNED (01/09/2014 0:39 EDT) 01/09/2014 0:39 EDT Narrative 01/09/2014 1:54 EDT Procedure Note VISITOR SERVICES ASSOCIATE, SCAN 2 - 01/09/2014 0:39 EDT Scan 2 Diagnostic Technologist PROCEDURE/MINOR TY GICAL ORDERABLES * (ABNORMAL) HEMAGRAM [...] PF4 ORD ERABLES [facility] [address] [place] [address] * PREPARE RED BLOOD CELLS (01/08/2014 12:30 EDT) Product Code E0685 -3 Apheresis RED BLOOD CELLS, Leukocytes Reduced [facility] Donor Number [id number] [facility] Unit ABO O [facility] Rh POS [facility] Cross Match Interp Compatible [facility] Unit Status Released From [facility] BLOOD [facility] 01/08/2014 12:3 0 EDT Provider Unknown BLOOD BANK ORDERABLE S [facility] * PREPARE RED BLOOD CELLS (01/08/2014 12:30 EDT) Product Code E0336 -1 RED BLOOD CELLS, Leukocytes Reduced [facility] Donor Number [id number] [employer] BLOOD BANK Unit ABO A [facility] Unit Rh POS [employer] BLOOD BANK Cross Match Interp Compatible [facility] Unit Status Released From [facility] BLOOD BANK 01/08/2014 12:3 0 EDT Provider Unknown BLOOD BANK ORDERABLE S [facility] * PREPARE RED BLOOD CELLS (01/08/2014 11:15 EDT) Product Code E0336 -1 RED BLOOD CELLS, Leukocytes Reduced [facility] Donor Number [id number] [employer] BLOOD BANK Unit ABO A [facility] Unit Rh POS [facility] Cross Match Interp Compatible [facility] Unit Status Released From [facility] BLOOD BANK 01/08/2014 11:1 5 EDT Provider Unknown BLOOD BANK ORDERABLE S Performing Organization Address [facility]/ZIP Co de Phone Number [facility] BLOOD BANK * PREPARE RED BLOOD CELLS (01/08/2014 11:15 EDT) Product Code E0336 -1 RED BLOOD CELLS, Leukocytes Reduced [facility] Donor Number [id number] [facility] Unit ABO A [facility] Unit Rh POS [facility] Cross Match Interp Compatible [facility] Unit Status Released From [facility] BLOOD [facility] Blood specimen (specimen) 01/08/2014 11:15 EDT Karrie Rose MD BLOOD BANK ORDERABLE S Performing Organization Address [facility] Co de Phone Number [facility] BLOOD BANK * ANTIBODY IDENTIFICATION (01/08/2014 10:58 EDT) Antibody Identification Anti-E Anti-c (joseph) [facility] 01/08/2014 10:5 8 EDT Provider Unknown BLOOD BANK TESTS Performing Organization Address [facility]/ZIP Co de Phone Number [facility] * DIFFERENTIAL (01/08/2014 9:36 [...] & PF4 ORD ERABLES Performing Organization Address City/[facility] Co de Phone Number [facility] [address] [place] [address] * (ABNORMAL) HEMAGRAM (01/08/2014 9:36 EDT) WBC [...] Zac Morillo MD HEMATOLOGY & PF4 ORD [employer]BLES Performing Organization Address City/[facility] Co de Phone Number [facility] [address] [place] [address] * (ABNORMAL) PROTIME (01/08/2014 9:36 EDT) Pro [...] Organization Address [facility] de Phone Number [facility] [address] [place] [address] * MAGNESIUM (01/08/2014 9:36 EDT) Magnesium 1.8 1.7 - 2.8 mg/dl [facility] Blood specimen (specimen) 01/08/2014 9:36 EDT 01/08/2014 9:50 EDT Zac Morillo MD CHEMISTRY & BLOOD GA S ORDERABLES Performing Organization Address [facility] Phone Number [facility] [address] [place] [address] * (ABNORMAL) HEPATIC FUNCTION PANEL (ALB,ALK PHOS,ALT,AST,DBIL,TOT MARVEL,TOT PROT) (01/08/2014 9:36 EDT) Albumin 3.4 3.4 - 4.9 g/dl [facility] Total Protein 6.6 6.5 - 8.3 g/dl [facility] Total Alkaline Phosphatase 77 38 [...] BLOOD GA S ORDERABLES Performing Organization Address City/[facility]/ZIP Co de Phone Number [facility] [address] [place] [address] * (ABNORMAL) SCREENING GLUCOSE (01/08/2014 9:36 EDT) Glucose, Screening 187(H) 70 - 100 mg/dl [facility] Blood specimen (specimen) 01/08/2014 9:36 EDT 01/08/2014 9:50 EDT Zac Morillo MD CHEMISTRY & BLOOD GA S ORDERABLES Performing Organization Address [facility] Co de Phone Number [facility] [address] [place] [address] * CREATININE (01/08/2014 9:36 EDT) Creatinine 0.90 0.66 - 1.25 mg/dl [facility] GFR, Calculated >60 >60 ml/min/1.7 3m2 [facility] Blood specimen (specimen) 01/08/2014 9:36 EDT 01/08/2014 9:50 EDT Zac Morillo MD CHEMISTRY & BLOOD GA S ORDERABLES Performing Organization Address [facility] Co de Phone Number [facility] [address] [place] [address] * (ABNORMAL) BUN (01/08/2014 9:36 EDT) BUN 45(H) 10 - 26 mg/dl [facility] Blood specimen (specimen) 01/08/2014 9:36 EDT 01/08/2014 9:50 EDT Zac Morillo MD CHEMISTRY & BLOOD GA S ORDERABLES Performing Organization Address [facility] Co de Phone Number [facility] [address] [place] [address] * (ABNORMAL) ELECTROLYTES (01/08/2014 9:36 EDT) Sodium [...] GA S ORDERABLES [facility] [address] [place] [address] * TYPE AND SCREEN (01/08/2014 9:35 EDT) ABO A [employer] BLOOD BANK Rh Factor Positive [employer] BLOOD BANK Antibody Screen Positive [employer] BLOOD BANK Comment:SPECIMEN EXPIRES AT 23:59 ON 01/11/2014 Blood specimen (specimen) 01/08/2014 9:35 EDT Zac Morillo MD BLOOD BANK TESTS Performing Organization Address City/[facility]/ZIP Co de Phone Number [employer] BLOOD BANK documented in this encounter Visit [...] Ana Vargas RN) [phone] (Given - Provider: lEly Ricci RN)[phone] (Given - Provider: Elly Ricci [...] 07/2013 documented in this encounter Care Teams Masticator Relationship Specialty Start Date End Date Kamala Rosado MD [address] [address] PCP - General 10/05/13 10/19/15 documented as of this encounter
--- OUTSIDE RECORDS SUMMARY | 2024-01-20 15:56 | XMS_ITS | Encounter Summary ---
Author Organization [facility] Address [address] [place] [address] Care Team Providers Care Abrasive Mixer Name Role Phone Kamala Rosado MD Primary Care Provider [phone] Reason for Visit * Reason Onset Date Comments Other 01/24/2014 inpatient capsul e endoscopy Encounter Details Date Type Department Care Team (Late st Contact Info) Description 01/24/2014 Telephone [facility] [place] [address] Deedee Chairez RN Other (inpatient capsule endoscopy) [...] encounter Miscellaneous Notes * Telephone Encounter - Deeede Chairez RN - 01/24/2014 0836 EDT Subjective: [...] 01/23/2024 10:00 EDT Office Visit [facility] General Surgery - [address] [id number] Bon Gutierrez MD [address] [place] [address], [address] [place] [phone] 09/10/2024 10:00 EDT Appointment Shaina Bergeron [address] [id number] documented as of this encounter Visit Diagnoses Not on filedocumented in this encounter Care Teams Abrasive Mixer Relationship Specialty Start Date End Date Kamala Rosado MD [address] [address] PCP - General 10/05/13 10/19/15 documented as of this encounter
--- OUTSIDE RECORDS SUMMARY | 2024-01-20 15:56 | XMS_ITS | Encounter Summary ---
Author Organization [facility] Address [address] [place] [address] Care Team Providers Care German Professor Name Role Phone Kamala Rosado MD Primary Care Provider [phone] Encounter Details Date Type Department Care Team (Latest Contact Info) Description 01/23/2014 Orders Only [facility] Gastroenterology - Main [place] [address] [place] [address] Eden Toscano RN GI (gastrointestinal bleed) (Primary [...] [facility] General Surgery - [address] [phone] Bon Gutierrez MD [address] [facility], Level 5 [place] [phone] 09/10/2024 10:00 EDT Appointment Shaina Bergeron [address] [address] Scheduled Orders Name Type Priority Associated Diagnoses Orde r Schedule CAPSULE ENDOSCOPY GI Routine GI (gastrointestinal bleed) Ordered: 01/23/2014 documented as of this encounter Visit Diagnoses Diagnosis GI (gastrointestinal bleed)- Primary Hemorrhage of gastrointestinal tract, unspecified documented in this encounter Care Teams German Professor Relationship Specialty Start Date End Date Kamala Rosado MD [address] [address] PCP - General 10/05/13 10/19/15 documented as of this encounter
--- OUTSIDE RECORDS SUMMARY | 2024-01-20 15:57 | XMS_ITS | Encounter Summary ---
Author Organization [facility] Address [address] [place] [address] Care Team Providers Care Carbonating Stone Cleaner Name Role Phone Barbra Vaughn MD Primary Care Provider [phone] Reason for Visit * Reason Onset Date Comments Other 03/29/2013 Encounter Details Date Type Department Care Team (Late st Contact Info) Description 03/29/2013 Telephone [facility] Gastroenterology - [address] [address] Eden Toscano RN Other Social History Tobacco [...] Encounter - Eden Toscano RN - 03/29/2013 7074 EST Patient states he was asked by his PCP to call to be treated for Hep C soon because his HCV PCR has increased. reviewed his last note on 03/14/13 & his recent result letter & recommends the patient wait for interferon- free therapy ,due to his previous treatment response & side effects from interferon. He was advised to continue to monitor the [facility] fornew updates on these treatments. He verbalized understanding & is satisfied with this plan. documented in this encounter Plan of Treatment Upcoming Encounters Date Type Department Care Team (Late st Contact Info) Description 01/23/2024 10:00 EDT Office Visit [facility] General Surgery - [facility] [address] [place], [place] [phone] Bon Gutierrez MD 111 [facility], Level [address] [place] [phone] 09/10/2024 10:00 EDT Appointment Shaina Bergeron [phone] [place], [place] [phone] documented as of this encounter Visit Diagnoses Not on filedocumented in this encounter Care Teams Carbonating Stone Cleaner Relationship Specialty Start Date End Date Barbra Vaughn MD [address] [facility] [address] [place] [address] PCP - General 02/27/13 10/04/13 documented as of this encounter
--- OUTSIDE RECORDS SUMMARY | 2024-01-20 15:57 | XMS_ITS | Encounter Summary ---
Author Organization [facility] Address [address] [place] [address] Care Team Providers Care Dip Brazier Name Role Phone Barbra Vaughn MD Primary Care Provider [phone] Reason for Referral * (Routine/Next Available) - Closed Specialty Diagnoses / Procedures Referred By Contac t Referred To Contact Kait Perkins MD [address] [place] [address] Referral ID Status Reason Start Date Expiration Date V isits Requested Visits Authorized [id number] Closed Specialty Services Required 06/16/2013 1 1 Comments Please call for an appointment with your PCP within 7 days * (Routine/Next Available) - Closed Specialty Diagnoses / Procedures [facility] Referred To Contact Kait Perkins MD [address] [place] [address] Referral ID Status Reason Start Date Expiration Date V isits Requested Visits Authorized [id number] Closed Specialty Services Required 06/16/2013 1 1 Reason for Visit * Reason Comments Rectal Bleeding [place]. Pt with rectal bleeding since 0400. Pt with hx of the same, admitted to [facility] in nov for the same with inconclusive workup. Pt in NAD. Skin warm adn dry. Resp unlabored. pt Ao. Encounter Details Date Type Department Care Team (Late st Contact Info) Description 06/15/2013 1:55 EST - 06/16/2013 14:19 EST Hospital Encounter [facility] Hematology & Oncology Unit [address] [place] [address] Torres Allen MD Walsh, Cary [place] MD 111 [facility], [facility], [address] [place] [address] Lester Kelly MD [address] [place] [address] Janie Mcgraw MD [address] [place] [phone] GI bleed (Primary Dx); Chronic hepatitis [...] doctor, Barbra Vaughn MD, in one week ([phone]) Future Appointments Date Time Provider Department Center [...] are the prescriptions that you need to picker tender helper. You may get the following medications from [...] Dispo: upon clinical improvement Consults: Raquel Rivera-MSIV #[id number] * Nadeen Scott - 06/15/2013 1406 EST Brief Case Management Assessment & Initial [...] BC/BS and states assist with meds.He uses [facility] in [place] Case Management Actions (completed and planned): No needs identified at present but will monitor. [place] #[id number] * Janie Mcgraw MD - 06/15/2013 6428 EST Internal Medicine Daily Progress Note Admit [...] HGB stable Kait Perkins M.D. M.P.H PGY-2, #[id number] Attestation: I saw and examined the patient [...] 2001, [facility], CKD, and chronic back pain who presents [...] November of 2012, was worked up at [facility] but no source of bleed was revealed. Workup at that time included and upper and lower endoscopy and capsule endoscopy. He presented initially to outside hospital where an EKG was done revealingnormal sinus rhythm. 3 L of normal saline were given bolus, in addition to Tylenol 650 mg, protonixto IV 40 mg and ceftriaxone 1 g. The patient was transferred to [facility] for further management. His hemoglobin at the outside hospital was 10.6. AST, ALT, Alk phos and total bilirubin were within normal limits. His blood pressures range from 107 to 115 systolic. Now at [facility] ED, patient stating that he continues to [...] [facility]odynamically [facility]. Plan: UGIB: Given history of melena, [...] HGB stable Adonis Daley MD--PGY2 Pager # [phone] 06/15/2013 4:55 Attestation: I saw and examined [...] documented in this encounter Procedure Notes * COLLECTION TELLER, SCAN 2 - 06/16/2013 0039 ESTAssociated Order(s): PROCEDURE REPORTS - SCANNED * Rubio Fischer MD - 06/15/2013 8911 EST Brief Procedure Note EGD performed in [...] screening Torres Jennings MD Gastroenterology and Hepatology #[id number] Attestation statement: I saw and examined the [...] with Dr. Fischer. Torres Jennings MD Pager #[phone] Gastroenterology & Hepatology Fellow 06/15/2013 13:29 Attestation statement: I saw and examined the patient with the resident/fellow. I agree with the findings and plan of care documented in the resident's/fellow's note. 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 He had recent work-up for GI bleeding last year at [facility] including EGD, colonoscopy, and VCE which was [...] Rectal Bleeding Pt to the ED from [facility]. Pt with rectal bleeding since 0. Pt with hx of the same, admitted to [facility] in nov for the same with inconclusive [...] He has a normal mood and affect. [place] ACUTE GI BLOOD LOSS Final result not shown here.: Radiology orders: [place] ACUTE GI BLOOD LOSS Imaging Results [place] ACUTE GI BLOOD LOSS (Final result) Result time: 06/15/13 09:42:24 Final result Narrative: Technique: [place] ACUTE GI BLOOD LOSS 06/15/2013 1:44 AM [...] Preliminary result Narrative: PRELIMINARY RESIDENT REPORT Technique: [place] ACUTE GI BLOOD LOSS 06/15/2013 1:44 AM [...] Preliminary result Narrative: PRELIMINARY RESIDENT REPORT Technique: [place] ACUTE GI BLOOD LOSS 06/15/2013 1:44 AM [...] [facility] will to the floor when scan complete. * Hank Kapadia RN - 06/15/2013 0012 EST Pt reasseessed and in NAD. Skin warm and dry. Resp unlabored. Pt AO. Resident at the bedside. Pt upto the bedside commode independently. Pt to [facility] with tech. * Hank Kapadia RN - 06/14/2013 2248 EST Chief Complaint Patient presents with ??? Rectal Bleeding Pt to the ED from [facility]. Pt with rectal bleeding since 399. Pt with hx of the same, admitted to [facility] in nov for the same with inconclusive [...] TCALL: ALMA CARBALLO 53 PT XFR FROM [facility]. CC: RECTAL BLEED SINCE 0900. PREVIOUS HISTORY OFSIMILAR WITH NEG. WORKUP AT [facility]. NOW WORKING WITH [facility]. RARE BLOOD TYPE. H/H 10.6 / 37 [...] 4:11 * Plan of Care - Hector Adonro RN - 06/15/2013 1837 EST Problem: CIRCULATORY [...] Visit [facility] General Surgery - [address] [phone] Bon Gutierrez MD 111 [facility], [address] [place] [address] 09/10/2024 10:00 EDT Appointment Shaina Mejia [address] [place] [phone] Pending Results Name Type Priority Associated [...] EDT) 06/20/2013 13:4 7 EDT Scan 2 Sales Enablement Consultant LAB INFO SERVICE AN D SUPPORT & [...] & PF4 ORD ERABLES Performing Organization Address [facility] Co de Phone Number [facility] [address] [place] [address] * INPATIENT ADD-ON (06/16/2013 8:45 EST) Tests to be added HPYS [facility] Number for problems [id number] [facility] Accession number [id number] [facility] 06/16/2013 8:45 EST 06/16/2013 8:46 EST Janie Mcgraw MD HEMATOLOGY & PF4 ORDERABLES Performing Organization Address [facility] Co de Phone Number [facility] [address] [place] [address] * HELICOBACTER PYLORI IGG ANTIBODY (06/16/2013 6:32 EST) H. Pylori IgG Ab Negative [facility] Comment:Assayed utilizing [employer] system. 06/16/2013 6:32 EST 06/16/2013 7:40 EST Lester Kelly MD CHEMISTRY & BLOOD GA S ORDERABLES Performing Organization Address [facility] Co de Phone Number [facility] [address] [place] [address] * (ABNORMAL) HEMAGRAM (06/16/2013 6:32 EST) WBC 2.23(L) 4.0 - 10.4 K/cmm [facility] RBC 3.04(L) 4.36 - 5.78 M/cmm [facility] Hemoglobin 8.5(L) 13.8 - 17.3 gm/dl [facility] HCT 25.3(L) 39.5 - 50.2 % [facility] MCV 83 81 - 95 fl [facility] MCH 28.0 27.6 - 33.0 pg [facility] MCHC 33.6 32.8 - 36.4 gm/dl [facility] PLT 77(L) 141 - 320 K/cmm [facility] RDW-CV 19.1(H) 11.8 - 14.1 % [facility] Blood specimen (specimen) 06/16/2013 6:32 EST 06/16/2013 7:41 EST Belle Montano MD HEMATOLOGY & PF4 ORD ERABLES [facility] [address] [place] [address] * CREATININE (06/16/2013 6:32 EST) Creatinine 0.84 0.66 - 1.25 mg/dl [facility] GFR, Calculated >60 >60 ml/min/1.7 3m2 [facility] Blood specimen (specimen) 06/16/2013 6:32 EST 06/16/2013 7:40 EST Adonis Daley MD CHEMISTRY & BLOOD GA S ORDERABLES Performing Organization Address City/[facility]/ZIP Co de Phone Number [facility] [address] [place] [address] * BUN (06/16/2013 6:32 EST) BUN 20 10 - 26 mg/dl [facility] Blood specimen (specimen) 06/16/2013 6:32 EST 06/16/2013 7:40 EST Adonis Daley MD CHEMISTRY & BLOOD GA S ORDERABLES Performing Organization Address [facility] Co de Phone Number [facility] [address] [place] [address] * (ABNORMAL) ELECTROLYTES (06/16/2013 6:32 EST) Sodium 138 136 - 145 mEq/L [facility] Potassium 3.5 3.5 - 5.0 mEq/L [facility] Chloride 112(H) 96 - 110 mEq/L [facility] CO2 23(L) 24 - 32 mEq/L [facility] Blood specimen (specimen) 06/16/2013 6:32 EST 06/16/2013 7:40 EST Adonis Daley MD CHEMISTRY & BLOOD GA S ORDERABLES Performing Organization Address [facility] [place] de Phone Number [facility] [address] [place] [address] * PROCEDURE REPORTS - SCANNED (06/16/2013 0:39 EST) 06/16/2013 0:39 EST Narrative 06/16/2013 2:32 EST Procedure Note COLLECTION TELLER, SCAN 2 - 06/16/2013 0:39 EST Scan 2 Sales Enablement Consultant PROCEDURE/MINOR TY GICAL ORDERABLES * (ABNORMAL) HEMAGRAM [...] HEMATOLOGY & PF4 ORDERABLES Performing Organization Address City/[facility] Co de Phone Number [facility] [address] [place] [address] * H. PYLORI BREATH TEST (06/15/2013 17:54 EST) H. pylori Breath Tst Negative Negative [facility] Comment: (Note) Result indicates the absence of current Helicobacter pylori infection. Performed by: [facility] Labs: [facility], [facility], [place] [address], Lab Dir: Richard Allan III, MD Specimen of unknown material (specimen) TOPOGRAPHY UNKNOWN / Unknown 06/15/2013 17:54 EST 06/15/2013 18:46 EST Kait Perkins MD GEN LAB UNIT COLLEC T ORDERABLES Performing Organization Address [facility] [place] [facility] de Phone Number [facility] [address] [place] [address] * SMEAR REVIEW (06/15/2013 16:21 EST) Smear scan only: Slide was examined by a technologist to verify the WBC and/or platelet count. [facility] 06/15/2013 16:2 1 EST 06/15/2013 17:17 EST Lester Kelly MD HEMATOLOGY & PF4 ORD ERABLES Performing Organization Address [facility] Co de Phone Number [facility] [address] [place] [address] * (ABNORMAL) HEMAGRAM (06/15/2013 16:21 EST) WBC 3.05(L) 4.0 - 10.4 K/cmm [facility] RBC 2.97(L) 4.36 - 5.78 M/cmm [facility] Hemoglobin 8.2(L) 13.8 - 17.3 gm/dl [facility] HCT 24.7(L) 39.5 - 50.2 % [facility] MCV 83 81 - 95 fl [facility] MCH 27.6 27.6 - 33.0 pg [facility] MCHC 33.2 32.8 - 36.4 gm/dl [facility] PLT 83(L) 141 - 320 K/cmm [facility] RDW-CV 18.9(H) 11.8 - 14.1 % [facility] Blood specimen (specimen) 06/15/2013 16:21 EST 06/15/2013 17:17 EST Lester Kelly MD HEMATOLOGY & PF4 ORD ERABLES Performing Organization Address City/State/[facility] Co de Phone Number [facility] [address] [place] [address] * TRANSFUSE RED BLOOD CELLS (06/15/2013 13:22 EST) Blood specimen (specimen) Adonis Daley MD NURSING TREATMENT - BLOOD ADMINISTRATION * TRANSFUSE RED BLOOD CELLS (06/15/2013 8:57 EST) Blood specimen (specimen) Adonis Daley MD NURSING TREATMENT - BLOOD ADMINISTRATION * PREPARE RED BLOOD CELLS (06/15/2013 5:30 EST) [facility] Signature Product Code E0382 -3 RED BLOOD CELLS, Leukocytes Reduced [facility] BLOOD BANK Donor Number [id number] [facility] BLOOD B[facility] Unit ABO A [facility] Rh POS [facility]LOOD [facility] Cross Match Interp Compatible [facility]LOOD [facility] Unit Status Transfuse [facility] BLOOD [facility] 06/15/2013 5:30 EST Provider Unknown BLOOD BANK ORDERABLE S [facility] * PREPARE RED BLOOD CELLS (06/15/2013 5:30 EST) Product Code E0382 -3 RED BLOOD CELLS, Leukocytes Reduced [facility] Donor Number [id number] [facility] Unit ABO A [facility] Unit Rh POS [facility] Cross Match Interp Compatible [facility] Unit Status Transfuse [facility] Blood specimen (specimen) 06/15/2013 5:30 EST Adonis Daley MD BLOOD BANK ORDERABLE S Performing Organization Address City/[facility]/ZIP Co de Phone Number [facility] [...] PF4 ORD ERABLES [facility] [address] [place] [address] * (ABNORMAL) HEMAGRAM (06/15/2013 2:37 EST) WBC 5.28 4.0 - 10.4 K/cmm [facility] RBC 2.78(L) 4.36 - 5.78 M/cmm [facility] Hemoglobin 7.7(L) 13.8 - 17.3 gm/dl [facility] HCT 23.3(L) 39.5 - 50.2 % [facility] MCV 84 81 - 95 fl [facility] MCH 27.9 27.6 - 33.0 pg [facility] MCHC 33.2 32.8 - 36.4 gm/dl [facility] PLT 103(L) 141 - 320 K/cmm [facility] RDW-CV 18.1(H) 11.8 - 14.1 % [facility] 06/15/2013 2:37 EST 06/15/2013 2:45 EST Adonis Daley MD HEMATOLOGY & PF4 ORD ERABLES Performing Organization Address City/[facility] Co de Phone Number [facility] [address] [place] [address] * (ABNORMAL) BUN (06/15/2013 2:37 EST) Pathologist [facility] BUN 33(H) 10 - 26 mg/dl [facility] Blood specimen (specimen) 06/15/2013 2:37 EST 06/15/2013 2:45 EST Adonis Daley MD CHEMISTRY & BLOOD GA S ORDERABLES Performing Organization Address [facility] Co de Phone Number [facility] [address] [place] [address] * CREATININE (06/15/2013 2:37 EST) Pathologist [facility] Creatinine 0.79 0.66 - 1.25 mg/dl [facility] GFR, Calculated >60 >60 ml/min/1.7 3m2 [facility] Blood specimen (specimen) 06/15/2013 2:37 EST 06/15/2013 2:45 EST Lester Kelly MD CHEMISTRY & BLOOD GA S ORDERABLES Performing Organization Address City/[facility]/ZIP Co de Phone Number [facility] [address] [place] [address] * (ABNORMAL) ELECTROLYTES (06/15/2013 2:37 EST) Sodium [...] BLOOD GA S ORDERABLES Performing Organization Address [facility] Co de Phone Number [facility] [address] [place] [address] * ED/WICC ADD-ON (06/15/2013 1:58 EST) Tests to be added PT, PTT [facility] Number for problems [id number] (ED) [facility] 06/15/2013 1:58 EST 06/15/2013 1:58 EST Lester Kelly MD HEMATOLOGY & PF4 ORD ERABLES Performing Organization Address City/[facility]/ZIP Co de Phone Number [facility] [address] [place] [address] * [place] ACUTE GI BLOOD LOSS (06/15/2013 [...] agree with the findings. Torres Allen MD [facility] [place] ORDERABLES * PTT (06/14/2013 22:45 EST) PTT 31 26 - 37 secs [facility] Comment:Therapeutic Heparin range: 65-100 seconds 06/14/2013 22:4 5 EST 06/14/2013 22:55 EST Torres Allen MD HEMATOLOGY & PF4 ORD ERABLES [facility] [address] [place] [address] * (ABNORMAL) PROTIME (06/14/2013 22:45 EST) Pro [...] PF4 ORD ERABLES Performing Organization Address [facility] de Phone Number [facility] [address] [place] [address] * HOLD SST (06/14/2013 22:45 EST) Hold SST Hold for further testing. Specimen will be held for 5 days. MIKE DO Blood specimen (specimen) 06/14/2013 22:45 EST 06/14/2013 22:55 EST Torres Allen MD LAB INFO SERVICE AND SUPPORT & PHONE RESULT Performing Organization Address [facility] de Phone Number [facility] [address] [place] [address] * HOLD BLUE TOP (06/14/2013 22:45 EST) Hold Blue Top Sample for coagulation will be discarded after 4 hours MIKE DO Blood specimen (specimen) 06/14/2013 22:45 EST 06/14/2013 22:55 EST Torres Allen MD LAB INFO SERVICE AND SUPPORT & PHONE RESULT Performing Organization Address [facility] de Phone Number [facility] [address] [place] [address] * HOLD GREEN TOP (06/14/2013 22:45 EST) Hold Green Top Hold for further testing. Specimen will be held for 5 days. MIKE DO Blood specimen (specimen) 06/14/2013 22:45 EST 06/14/2013 22:55 EST Torres Allen MD LAB INFO SERVICE AND SUPPORT & PHONE RESULT Performing Organization Address [facility] Co de Phone Number [facility] [address] [place] [address] * (ABNORMAL) HEMAGRAM (06/14/2013 22:45 EST) WBC [...] PF4 ORD ERABLES Performing Organization Address [facility] Co de Phone Number [facility] [address] [place] [address] * TYPE AND SCREEN (06/14/2013 22:45 EST) ABO A [facility] Rh Factor Positive [facility] Antibody Screen Negative [facility] Comment:sample expires 014 at 23:59. Blood specimen (specimen) 06/14/2013 22:45 EST Torres Allen MD BLOOD BANK TESTS Performing Organization Address [facility]/ZIP Co de Phone Number [facility] [...] 11/2013 documented in this encounter Care Teams Dip Brazier Relationship Specialty Start Date End Date Barbra Vaughn MD [address] [place] [address] PCP - General 02/27/13 10/04/13 documented as of this encounter
--- OUTSIDE RECORDS SUMMARY | 2024-01-20 15:57 | XMS_ITS | Encounter Summary ---
Author Organization [facility] Address [address] [place] [address] Care Team Providers Care Chainstitch Zipper Setter Name Role Phone Barbra Vaughn MD Primary Care Provider [phone] Reason for Visit * Reason Onset Date Comments Other 06/27/2013 PCP would like t o speak with Dr. Duran about patient's follow-up care. Encounter Details Date Type Department Care Team (Late st Contact Info) Description 06/27/2013 Telephone [facility] Gastroenterology - [address] [id number] Brody Duran MD PhD [address] [place] [address] 5 [place] [address] Other (PCP would like to [...] RN - 06/27/2013 0858 EDT Barbara [facility] was called back & given PAS # for to reach directly to discuss plan of care for this patient. documented in this encounter Plan of Treatment Upcoming Encounters Date Type Department Care Team (Late st Contact Info) Description 01/23/2024 10:00 EDT Office Visit [facility] General Surgery - [facility] [address] [place], [place] [phone] Bon Gutierrez MD 111 [facility], Level 5 [place] [phone] 09/10/2024 10:00 EDT Appointment Shaina Mejia 0 [place], [place] [address]696 documented as of this encounter Visit Diagnoses Not on filedocumented in this encounter Care Teams Chainstitch Zipper Setter Relationship Specialty Start Date End Date Barbra Vaughn MD [address] [facility] [address] [place] [address] PCP - General 02/27/13 10/04/13 documented as of this encounter
--- OUTSIDE RECORDS SUMMARY | 2024-01-20 15:57 | XMS_ITS | Encounter Summary ---
Author Organization [facility] Address [address] [place] [address] Care Team Providers Care Inbound Customer Service Agent Name Role Phone Barbra Vaughn MD Primary Care Provider [phone] Encounter Details Date Type Department Care Team (Late st Contact Info) Description 03/14/2013 Phlebotomy Only [address] [address] Mud Analysis Operator, Outpatient Chronic hepatitis C without mention of [...] Office Visit [facility] General Surgery [address] [address] Bon Gutierrez MD 111 [facility], Level 5 [place] [phone] 09/10/2024 10:00 EDT Appointment Shaina Mejia 0 [place], [place] [phone] documented as of this encounter Procedures Procedure [...] OD GAS ORDERABLES [facility] [address] [place] [address] * HEPATITIS B SURFACE ANTIGEN (03/14/2013 14:34 EST) Hepatitis B Surface Ag Negative [facility] Comment:Reference Range: Neg ative Blood specimen (specimen) 03/14/2013 14:34 EST 03/14/2013 14:51 EST Brody Duran MD PhD CHEMISTRY & BLO OD GAS ORDERABLES Performing Organization Address [facility] Phone Number [facility] [address] [place] [address] * HEPATITIS B SURFACE ANTIBODY (03/14/2013 14:34 [...] BLO OD GAS ORDERABLES Performing Organization Address [facility] Phone Number [facility] [address] [place] [address] * HEPATITIS A TOTAL ANTIBODY (03/14/2013 14:34 EST) Hep A Antibody Negative [facility] Comment:Reference Range: Neg ative Blood specimen (specimen) 03/14/2013 14:34 EST 03/14/2013 14:51 EST Brody Duran MD PhD CHEMISTRY & BLO OD GAS ORDERABLES Performing Organization Address [facility] Phone Number [facility] [address] [place] [address] * PROTIME (03/14/2013 14:34 EST) Pro Time [...] PF 4 ORDERABLES [facility] [address] [place] [address] * (ABNORMAL) COMPREHENSIVE METABOLIC PANEL (CMP) (03/14/2013 [...] OD GAS ORDERABLES [facility] [address] [place] [address] documented in this encounter Visit Diagnoses Diagnosis Chronic hepatitis C without mention of hepatic coma Cirrhosis (HCC-CMS) Cirrhosis of liver without mention of alcohol documented in this encounter Care Teams Inbound Customer Service Agent Relationship Specialty Start Date End Date Barbra Vaughn MD [address] [place] [address] PCP - General 02/27/13 10/04/13 documented as of this encounter
--- OUTSIDE RECORDS SUMMARY | 2024-01-20 15:57 | XMS_ITS | Encounter Summary ---
Author Organization [facility] Address [address] [place] [address] Care Team Providers Care Cafeteria Worker Name Role Phone Barbra Vaughn MD Primary Care Provider [phone] Encounter Details Date Type Department Care Team (Late st Contact Info) Description 03/15/2013 Results Only [facility] Gastroenterology - [address] [address] Brody Duran MD PhD [address] [place] [phone] Social History Tobacco Use Types Packs/Day Years [...] Description 01/23/2024 10:00 EDT Office Visit [facility] General Surgery - [address] [phone] Bon Gutierrez MD [address] [place] [phone] 09/10/2024 10:00 EDT Appointment Shaina Mejia [address] [place] [address] documented as of this encounter Procedures Procedure Name Priority Date/Time Associated Diagnosis Comments HCV GENOTYPE, SERUM Routine 03/14/2013 1 4:34 EST documented in this encounter Results * HCV GENOTYPE, SERUM (03/14/2013 14:34 EST) Hepatitis C Genotype 1a Undetected [facility] Comment: (Note) Testing was done using the Turpin HCV Genotype II Assay. Performed by: [facility]: [facility], [address] [place], [place] [address], Lab Dir: Richard Allan III, MD 03/14/2013 14:3 4 EST 03/14/2013 14:51 EST Brody Duran MD PhD CHEMISTRY & BLO OD GAS ORDERABLES Performing Organization Address City/State/[facility] Co de Phone Number [facility] [address] [place] [address] documented in this encounter Visit Diagnoses Not on filedocumented in this encounter Care Teams Cafeteria Worker Relationship Specialty Start Date End Date Barbra Vaughn MD [address] [place] [address] PCP - General 02/27/13 10/04/13 documented as of this encounter
--- OUTSIDE RECORDS SUMMARY | 2024-01-20 15:57 | XMS_ITS | Encounter Summary ---
Author Organization [facility] Address [address] [place] [address] Care Team Providers Care Plastics Engineer Name Role Phone Barbra Vaughn MD Primary Care Provider [phone] Reason for Referral * Radiology Services (Routine) - Closed Specialty Diagnoses / Procedures [facility] Referred To Contact Diagnoses Cirrhosis of liver (HCC-CMS) Chronic hepatitis C without mention of hepatic coma Procedures RAD US ABDOMEN ONE ORGAN/QUADRANT Brody Duran MD PhD [address] [place] [phone] Referral ID Status Reason Start Date Expiration Date Visits Re quested Visits Authorized [id number] Closed 07/10/2013 1 1 Reason for Visit * Reason Comments Cirrhosis and gi bleed, f/u Encounter Details Date Type Department Care Team (Late st Contact Info) Description 07/10/2013 16:00 EDT Office Visit [facility] Gastroenterology - [address] [address] Brody Duran MD PhD [address] [place] [phone] Cirrhosis of liver (CMS-HCC) (HCC-CMS) (Primary [...] FOLLOWUP NOTE - 07/10/2013 [place] [address] Rosado: Thank you for asking [...] loss, which had been extensively evaluated at [facility], including upper endoscopy, colonoscopy and capsule endoscopy. The patient had recurrent hematochezia last month and was briefly hospitalized at [facility]. An upper endoscopy performed at that time [...] - Brody Duran MD,PhD arianna Dictation ID: [id number] cc: Kamala Rosado MD,[facility], [address] [place] [id number] * Brody Duran MD - 07/10/2013 1657 EDT This office note has been dictated. documented in this encounter Plan of Treatment Upcoming Encounters Date Type Department Care Team (Late st Contact Info) Description 01/23/2024 10:00 EDT Office Visit [facility] General Surgery - [facility] [address] [place], [place] [phone] Bon Gutierrez MD 111 [facility], Level 5 [place] [address] 09/10/2024 10:00 EDT Appointment Shaina [facility]on Ultrasound [address] [place] [address] documented as of this encounter [...] SYMPTOMS/COMMENTS: ??571.5-Cirrhosis of liver without mention of kgqapin-XZM-4-CM 070.54-Chronic hepatitis C without mention of hepatic jyri-UIQ-6-CM; cirrhosis evaluate for tumor Comparison: June 18, [...] SYMPTOMS/COMMENTS: 571.5-Cirrhosis of liver without mention of qdwbfrr-XLC-3-CM 070.54-Chronic hepatitis C without mention of hepatic morn-PTD-3-CM; cirrhosis evaluate for tumor Comparison: June 18, [...] & PF 4 ORDERABLES Performing Organization Address [facility] Co de Phone Number [facility] [address] [place] [address] * (ABNORMAL) HEMAGRAM (07/10/2013 16:51 EDT) WBC [...] & PF 4 ORDERABLES Performing Organization Address City/[facility] Co de Phone Number [facility] [address] [place] [address] * (ABNORMAL) COMPREHENSIVE METABOLIC PANEL (CMP) (07/10/2013 [...] OD GAS ORDERABLES [facility] [address] [place] [address] documented in this encounter Visit Diagnoses Diagnosis Cirrhosis of liver (HCC-CMS)- Primary Cirrhosis of liver without mention of alcohol Chronic hepatitis C without mention of hepatic coma documented in this encounter Care Teams Plastics Engineer Relationship Specialty Start Date End Date Barbra Vaughn MD [address] [place] [address] PCP - General 02/27/13 10/04/13 documented as of this encounter
--- OUTSIDE RECORDS SUMMARY | 2024-01-20 15:57 | XMS_ITS | Encounter Summary ---
Author Organization [facility] Address [address] [place] [address] Care Team Providers Care Industrial Plant Custodian Name Role Phone Barbra Vaughn MD Primary Care Provider [phone] Encounter Details Date Type Department Care Team (Latest Contact Info) Description 06/15/2013 13:30 EST - 06/15/2013 23:59 EST Hospital Encounter [facility] [place] [address] Discharge Disposition: Home or Self Care Social [...] Visit [facility] General Surgery - [facility] [address] [place], [place] [phone] Bon Gutierrez MD 111 [facility], Level [address] [place] [address] 09/10/2024 10:00 EDT Appointment Shaina Bergeron [address] [address] documented as of this encounter Visit Diagnoses Not on filedocumented in this encounter Care Teams Industrial Plant Custodian Relationship Specialty Start Date End Date Barbra Vaughn MD [address] [place] [facility] [[email or web address] [address] [place] [address] PCP - General 02/27/13 10/04/13 documented as of this encounter
--- OUTSIDE RECORDS SUMMARY | 2024-01-20 15:57 | XMS_ITS | Encounter Summary ---
Author Organization [facility] Address [address] [place] [address] Care Team Providers Care Market Development Specialist Name Role Phone Barbra Vaughn MD Primary Care Provider [phone] Encounter Details Date Type Department Care Team (Late st Contact Info) Description 06/18/2013 9:56 EDT - 06/18/2013 23:59 EDT Hospital Encounter [address] [address] Brody Duran MD PhD [address] [place] [address], [address] [place] [address] Discharge Disposition: Home or Self [...] Office Visit [facility] General Surgery - [facility] [address] [place], [place] [address] Bon Gutierrez MD 111 [facility], Level [address] [place] [phone] 09/10/2024 10:00 EDT Appointment Shaina Mejia [address] [place] [address] documented as of this encounter Visit Diagnoses Not on filedocumented in this encounter Care Teams Market Development Specialist Relationship Specialty Start Date End Date Barbra Vaughn MD [address] [facility] [address] [place] [address] PCP - General 02/27/13 10/04/13 documented as of this encounter
--- OUTSIDE RECORDS SUMMARY | 2024-01-20 15:57 | XMS_ITS | Encounter Summary ---
Author Organization [facility] Address [address] [place] [address] Care Team Providers Care Distribution Engineering Technologist Name Role Phone Barbra Vaughn MD Primary Care Provider Encounter Details Date Type Department Care Team (Late st Contact Info) Description 06/11/2013 Results Only [facility] Gastroenterology - [address] [address]671 Brody Duran MD PhD [address] [place] [phone] Social History Tobacco Use Types Packs/Day Years [...] System [facility] General Surgery - [address] [address] Bon Gutierrez MD [address] [place] [phone] 09/10/2024 10:00 EDT Appointment Shaina Mejia [address] [place] [address] documented as of this encounter Procedures Procedure [...] 070.54-Chronic hepatitis C without mention of hepatic ddpk-CLQ-3-CM 571.5-Cirrhosis of liver without mention of ykbtqhw-JPF-4-CM; cirrhosis r/o HCC pager 01 Comparison: ??None [...] 070.54-Chronic hepatitis C without mention of hepatic dfns-JDB-0-CM 571.5-Cirrhosis of liver without mention of xplmfbn-RZK-2-CM; cirrhosis r/o HCC pager 01 Comparison: None [...] on filedocumented in this encounter Care Teams Distribution Engineering Technologist Relationship Specialty Start Date End Date Barbra Vaughn MD [address] [place] [address] [address] PCP - General 02/27/13 10/04/13 documented as of this encounter
--- OUTSIDE RECORDS SUMMARY | 2024-01-20 15:57 | XMS_ITS | Encounter Summary ---
Author Organization [facility] Address [address] [place] [address] Care Team Providers Care Breaker Tender Name Role Phone Barbra Vaughn MD Primary Care Provider [phone] Reason for Visit * Reason Comments Cirrhosis New Patient Visit * Consult (Routine) - Closed Specialty Diagnoses / Procedures Referred By Contact Referred To Contact Gastroenterology and Hepatology Diagnoses Cirrhosis (HCC-CMS) Barbra Vaughn MD [address] [place] [address] [address] [place] [address] Brody Duran MD PhD [address] [phone] Referral ID Status Reason Start Date Expiration Date Visits Re quested Visits Authorized [id number] Closed 1 1 Encounter Details Date Type Department Care Team (Late st Contact Info) Description 03/14/2013 14:30 EST Office Visit [facility] Gastroenterology - [facility] [address] [place], [place] [phone] Brody Duran MD PhD [address] [phone] Chronic hepatitis C without mention [...] GASTROENTEROLOGY CONSULTATION - 03/14/2013 [place] [address] Vaughn, Thank you for asking me to see your patient, Alonzo Urbina, in consultation today. As you know, he is a 57-year-old man with cirrhosis secondary to hepatitis C. The diagnosis of hepatitis C was made in 2001 in [place] during routine laboratory testing. The patient is unaware of the hepatitis C viral genotype, and he does not know whether serology for hepatitis A or B was obtained. 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 He had a prolonged hospitalization at [facility] and ultimately recovered with a disability. 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 He was transferred to [facility] where variceal band ligation was performed, and he was placed on nadolol. He has undergone surveillance endoscopy since that time, most recently in December 2012. He has also undergone surveillance right upper quadrant abdominal ultrasound, most recently in April 2012. There is a history of recurrent rectal bleeding of uncertain etiology. An extensive evaluation at [facility] in the winter of 2012 included an upper endoscopy, colonoscopy, and capsule endoscopy, and no bleeding source was identified. The last episode of hematochezia was appr oximately 3 weeks ago, and it was transient. He has been maintained on iron supplements for management. Past health is otherwise significant for scoliosis, a history of depression and nephrolithiasis. [id number], blood transfusion was performed during back surgery. [...] white blood cell count 4.5, hematocrit 39, [id number], and laboratory data obtained today show bilirubin [...] that I arrange for this here at [facility]. Based on the history, I do not [...] - Brody Duran MD,PhD rn Dictation ID: [id number] cc: Barbra Vaughn MD, [address] [address] documented in this encounter Plan of Treatment Upcoming Encounters Date Type Department Care Team (Late st Contact Info) Description 01/23/2024 10:00 EDT Office Visit [facility] General Surgery - [facility] [address] [place], [place] [address] Bon Gutierrez MD 111 [facility], Level 5 [place] [phone] 09/10/2024 10:00 EDT Appointment Shaina Rubio Mejia [address] [place] [phone] documented as of this encounter Results * HCV RNA QUANT WITH REFLEX TO GENOTYPE (03/14/2013 14:34 EST) [facility] HCV RNA Detect Quant 1,582,168 IU/mL [facility] Comment: Reference Range: ??Undetected The quantification range of this assay is 15 IU/mL to 100,000,000 IU/mL. Testing was performed by the Mili Ampliprep/Mili TaqMan HCV v2.0 ([employer] Note new version HCV v2.0 in use 01/11/2013. Blood specimen (specimen) 03/14/2013 14:34 EST 03/14/2013 14:51 EST Brody Duran MD PhD CHEMISTRY & BLO OD GAS ORDERABLES [facility] [address] [place] [address] * HEPATITIS B SURFACE ANTIGEN (03/14/2013 14:34 EST) [facility] Hepatitis B Surface Ag Negative [facility] Comment:Reference Range: Neg ative Blood specimen (specimen) 03/14/2013 14:34 EST 03/14/2013 14:51 EST Brody Duran MD PhD CHEMISTRY & BLO OD GAS ORDERABLES Performing Organization Address [facility] de Phone Number [facility] [address] [place] [address] * HEPATITIS B SURFACE ANTIBODY (03/14/2013 14:34 [...] BLO OD GAS ORDERABLES Performing Organization Address [facility] de Phone Number [facility] [address] [place] [address] * HEPATITIS A TOTAL ANTIBODY (03/14/2013 14:34 EST) Hep A Antibody Negative [facility] Comment:Reference Range: Neg ative Blood specimen (specimen) 03/14/2013 14:34 EST 03/14/2013 14:51 EST Brody Duran MD PhD CHEMISTRY & BLO OD GAS ORDERABLES Performing Organization Address [facility] de Phone Number [facility] [address] [place] [address] * PROTIME (03/14/2013 14:34 EST) Pro Time [...] & PF 4 ORDERABLES Performing Organization Address City/[facility]/ZIP Co de Phone Number [facility] [address] [place] [address] * (ABNORMAL) COMPREHENSIVE METABOLIC PANEL (CMP) (03/14/2013 [...] BLO OD GAS ORDERABLES Performing Organization Address City/[facility] Co de Phone Number [facility] [address] [place] [address] documented in this encounter Visit Diagnoses Diagnosis [...] 06/16/2013 added in this encounter Care Teams Breaker Tender Relationship Specialty Start Date End Date Barbra Vaughn MD [address] [place] [address] PCP - General 02/27/13 10/04/13 documented as of this encounter
--- OUTSIDE RECORDS SUMMARY | 2024-01-20 15:57 | XMS_ITS | Encounter Summary ---
Author Organization [facility] Address [address] [place] [address] Care Team Providers Care Dry Heat Room Attendant Name Role Phone Barbra Vaughn MD Primary Care Provider [phone] Reason for Referral * Consult, Test and Treat (Routine/Next Available) - Closed Specialty Diagnoses / Procedures Referred By Contac t Referred To Contact Rehab Therapies Diagnoses Low back pain Scoliosis Lumbar radiculopathy Rosario Hutchison PA-C [address] [place] [address] Referral ID Status Reason Start Date Expiration Date V isits Requested Visits Authorized [id number] Closed Specialty Services Required 06/01/2013 1 1 Question Answer Reason for Request: AQUATIC THERAPY WITH TRANSITION TO LAND PT, LUMBAR STRETCHES, CORE STABILIZATION, POSTURAL YAZIDI * Radiology Services (Routine/Next Available) - Closed Specialty Diagnoses / Procedures Referred By Contac t Referred To Contact Diagnoses Scoliosis Procedures SCOLI 2 VIEW AP & LAT Rosario Hutchison PA-C [address] [address] Referral ID Status Reason Start Date Expiration Date Visits Re quested Visits Authorized [id number] Closed 06/01/2013 1 1 * Radiology Services (Routine/Next Available) - Closed Specialty Diagnoses / Procedures Referred By Contac t Referred To Contact Diagnoses Low back pain Procedures L SPINE 2-3 VIEWS Rosario Hutchison PA-C [address] [place] [address] Referral ID Status Reason Start Date Expiration Date Visits Re quested Visits Authorized [id number] Closed 06/01/2013 1 1 Reason for Visit * Reason Comments Back Pain low Encounter Details Date Type Department Care Team (Latest Contact Info) Description 06/01/2013 12:45 EST Office Visit [facility] Spine Program - [address] [place] [address] Rosario Hutchison PA-C Low back pain (Primary [...] the course of a couple of yearsin [place], [place]. There were helpful at first, but then they stopped working. He was eventually referred to a spine surgeon in the [place] area who offered him more surgeries, though [...] helpful for them to do some postural worship and some core stabilization exercises. We also [...] 01/23/2024 10:00 EDT Office Visit [facility] General Surgery - [address] [phone] Bon Gutierrez MD 111 [facility], Level [address] [place] [phone] 09/10/2024 10:00 EDT Appointment Shaina Bergeron Ultrasound [address] [place], [place] [address] Scheduled Referrals Name Type Priority Associated Diagnoses [...] 10/05/2013 added in this encounter Care Teams Dry Heat Room Attendant Relationship Specialty Start Date End Date Barbra Vaughn MD [address] [place] [address] PCP - General 02/27/13 10/04/13 documented as of this encounter
[2024-01-20 16:09] VITALS: PULSE 80; RESP 18; TEMP 36.8; O2SAT 98
--- NOTE | 2024-01-20 16:15 | DI.CT_ITS ---
Exam(s) CT HEAD WO EXAM: CT HEAD WO CLINICAL HISTORY: ams, confusion. TECHNIQUE: Imaging Protocol: Axial computed tomography images with coronal and sagittal reformatted images were created and reviewed COMPARISON: CT CT HEAD CERVICAL SPINE WO from 11/02/2019 FINDINGS: Ventricles and Extra axial spaces: Normal in size and morphology for the patient's age. Hemorrhage: None. Cerebral parenchyma: No evidence of acute infarct or mass. Moderate atrophy. White matter changes sm all vessel disease. Midline shift: None. Brainstem/Cerebellum: Normal. Calvarium: Normal. Visualized Paranasal sinuses:Clear. Mastoids: Clear. Soft Tissues: Unremarkable. ORBITS: Unremarkable. PITUITARY: Not enlarged. IMPRESSION: No acute intracranial process. RADIATION DOSE DELIVERED: Total DLP DATA REPOSITORY: All CT scans at this facility are submitted to the National Radiology Data Registry (NRDR) Dose Index Registry (DIR) with the [employer] (ACR). RADIATION OPTIMIZATION: All CT scans at this facility use at least one of these dose optimization te chniques: automated exposure control; mA and/or kV adjustment per patient size (includes targeted exa ms where dose is matched to clinical indication); or iterative reconstruction.
--- NOTE | 2024-01-20 16:15 | DI.RAD_ITS ---
Exam(s) XR CHEST 2V PA LATERAL EXAM: XR CHEST 2V PA LATERAL CLINICAL HISTORY: ams TECHNIQUE: 2D digital imaging was performed. Two views. COMPARISON: CR XR CHEST 2V PA LATERAL from 11/19/2019 FINDINGS: HEART: Normal size. Aorta: Not dilated. PULMONARY VASCULATURE: Normal. MEDIASTINUM: Unremarkable. LUNGS: Clear. PLEURAL SPACE: No pleural effusion or pneumothorax. BONE:Multiple old left rib fractures. SOFT TISSUES: TIPS. Metallic coils in the midline of the upper abdomen. IMPRESSION: No acute abnormality. DATA REPOSITORY: RADIATION DOSE DELIVERED:
--- NOTE | 2024-01-20 16:15 | RT.EKG_ITS ---
APPROVED REPORT Exam: Resting ECG Reason for Exam: [facility] Patient Location: E HR:61 bpm ECG Measurements Heart Rate 61 AXIS CO 169 P 11 QRSd 91 QRS 3 QT 425 T 34 QTc 428 Conclusion Sinus rhythm...normal P axis, V-rate 60- 99 sinus rhythm, normal axis, normal intervals, non ischemic
--- NOTE | 2024-01-20 16:19 | W.ED.GENAD ---
Discharge Plan Disposition Patient Disposition: Home Condition: Improving Discharge Details Chief Complaint: AMS/LOC Clinical Impression: Confusion Primary Care Provider: George Lou ED Provider: Gurjit Fischer Home Meds and New Rx's Prescriptions: No Action Centrum Silver 0.4-300-250 mg-mcg-mcg tablet 1 tab PO DAILY sucralfate 1 gram Tablet 1 g PO AC & HS 30 Days Qty: 120 1RF pantoprazole 40 mg tablet,delayed release (DR/EC) 40 mg PO BID 30 Days Qty: 60 1RF ondansetron 4 mg tablet,disintegrating 4 mg PO Q8H PRNQty: 30 0RF atorvastatin 20 mg tablet 20 mg PO DAILY Invokana 100 mg tablet 100 mg PO DAILY lisinopril 10 mg tablet 10 mg PO DAILY Lumigan 0.01 % drops 1 drp ophthalmic (eye) DAILY Discharge Instructions Instructions: Blood in the urine (hematuria) in adults Additional Instructions: Please follow-up with urologist as well as neurologist. Please follow with your primary care physician and optometry doctor. Return to the Emergency Department for any worsening symptoms HPI General Date/Time Provider Initiated Documentation: 01/20/24 15:52. HPI Narrative: 68-year-old male history of prior substance abuse, history of TIPS procedure, presents with confusion/forgetfulness over the last couple of days brought in by his friend who is noticed a change in his personality specifically forgetting multiple important medical follow-up appointments and having some irritability that is unlike him. Patient denies any trauma or falls, denies headache or neck pain denies chest pain or shortness of breath. Patient did suffer a traumatic right clavicular fracture at work a couple weeks ago was scheduled to have it repaired, no abdominal pain or nausea however he does have decreased appetite. No balance issues. No subjective change in his skin or eye color. Related Data Home Medications ?Medication ?Instructions ?Recorded ?Confirmed adkkhkhn-arp-tzxva acid 0.4 1 tab PO DAILY 11/16/19 01/20/24 mg-lycopene 300 mcg-lutein 250 mcg tablet (Centrum Silver) atorvastatin 20 mg tablet 20 mg PO DAILY 08/19/23 01/20/24 bimatoprost 0.01 % eye drops 1 drp ophthalmic (eye) DAILY 08/19/23 01/20/24 (Lumigan) canagliflozin 100 mg tablet 100 mg PO DAILY 08/19/23 01/20/24 (Invokana) lisinopril 10 mg tablet 10 mg PO DAILY 08/19/23 01/20/24 pantoprazole 40 mg tablet,delayed 40 mg PO BID 30 days #60 tabs 08/29/23 01/20/24 release sucralfate 1 gram tablet 1 g PO AC & HS 30 days #120 tabs 08/29/23 01/20/24 ondansetron 4 mg disintegrating 4 mg PO Q8H PRN #30 tabs 01/10/24 01/20/24 tablet Previous Rx's ?Medication ?Instructions ?Recorded pantoprazole 40 mg tablet,delayed 40 mg PO BID 30 days #60 tabs 08/29/23 release sucralfate 1 gram tablet 1 g PO AC & HS 30 days #120 tabs 08/29/23 ondansetron 4 mg disintegrating 4 mg PO Q8H PRN #30 tabs 01/10/24 tablet Allergies Allergy/AdvReac Type Severity Reaction Status Date / Time zolpidem (From Ambien) AdvReac Other (See Verified 01/10/24 08:09 Comment) General Stated Complaint: AMS/LOC BAKARI: 3 Exam Narrative Exam Narrative: Alert interactive Moist mucous membranes tolerating secretions Normal conjunctiva no scleral icterus normal pupils round equal reactive to light Normal heart sounds no murmurs rubs or gallops Lungs clear bilaterally no wheeze rales or rhonchi Fullness over the right clavicular region without skin tenting Abdomen soft nontender nondistended no fluid wave Alert to self place and time, cranial nerves II through XII intact 5-5 strength upper and lower extremities bilaterally, normal speech no aphasia, normal sensation, no ataxia Calm cooperative no SI no HI no hallucinations, tearful as he is worried Course Vital Signs Vital signs: Vital Signs Temperature 36.4 C 01/20/24 15:42 Pulse 79 01/20/24 15:42 Respiratory Rate 18 01/20/24 15:42 Blood Pressure 163/83 H 01/20/24 15:42 Pulse Oximetry 97 01/20/24 15:42 Temperature 36.8 C 01/20/24 16:09 Temperature Source Oral 01/20/24 15:42 Pulse 80 01/20/24 16:09 Respiratory Rate 18 01/20/24 16:09 Respiratory Effort Normal, Non-Labored 01/20/24 16:04 Blood Pressure 163/83 H 01/20/24 15:42 Blood Pressure Position Sitting 01/20/24 15:42 Pulse Oximetry 98 01/20/24 16:09 Oxygen Delivery Method Room Air 01/20/24 16:09 Oxygen Flow Rate 0 01/20/24 15:42 Pain Level 0 01/20/24 16:09 Medical Decision Making 68-year-old male history of prior substance abuse, cirrhosis, TIPS procedure, presents with forgetfulness and slight irritation/irritability at home which is abnormal for patient per collateral from friend, patient has been forgetting events and medical appointments, patient is afebrile nontoxic nonmeningeal hemodynamically stable neurologically intact without deficit no ataxia, no skin changes or scleral icterus noted, patient is moist mucous membranes, patient is nonperitoneal soft abdomen without fluid wave, high clinical suspicion for hyperammonemia in the setting of chronic cirrhosis versus electrolyte derangement lower suspicion for encephalitis or meningitis lower suspicion for stroke or seizure lower suspicion for intracranial mass or hemorrhage lower suspicion for drug intoxication or toxicologic process lower suspicion for hypothyroidism given history and physical. Will obtain screening labs imaging close reassessment. 18: 46 patient resting comfortably no acute distress alert interactive. Now able to describe to me that he has a future appointment to see his optometry doctor on Tuesday. No focal deficits 5-5 strength upper and lower extremities, sensation intact, cranial nerves II through XII intact, no nystagmus no aphasia, no ataxia. Labs and imaging unremarkable. Patient and his friend do endorse the patient recently was prescribed oxycodone for musculoskeletal pain, friend noticed that he was slumping and slurring his words the other day since then patient has discontinued his oxycodone. Consider delayed metabolism of opiate given TIPS procedure, patient does not appear intoxicated at this time. Patient be given follow-up with urology for hematuria seen on UA, patient will also be given neurology referral for close neuro follow-up. Home care instructions and strict return precautions given. Patient and friend feel comfortable going home Quality:SDOH Health Related Social Needs: No Data to Display PFSH All Active Problems (Updated 01/20/24 @ 19:11 by Gurjit Fischer MD) Confusion (Acute) Gastroenteritis (Acute) Fracture of right clavicle (Acute 12/21/23) Cholelithiasis (Acute) Gastritis (Acute) Esophageal reflux (Chronic) Esophagitis (Acute) Left rotator cuff tear (Acute) Duodenal ulcer disease (Acute) Gallstones (Chronic) Esophageal varices (Chronic) Cirrhosis (Chronic) Medical History (Updated 01/20/24 @ 19:11 by Gurjit Fischer MD) Melena Nausea & vomiting Hx of caloric malnutrition Anemia Red blood cell antibody positive with compatible PRBC difficult to obtain Drug abuse Left inguinal hernia Hepatitis C Fully treated Hx of non-insulin dependent diabetes mellitus Hx of pneumothorax History of rib fracture Hx of fracture of clavicle Scoliosis Hepatic encephalopathy Pancytopenia Red blood cell antibody positive with compatible PRBC difficult to obtain History of GI bleed variceal Surgical History (Updated 08/30/23 @ 00:08 by PARAMJIT BARILLAS) S/P TIPS (transjugular intrahepatic portosystemic shunt) Has ultrasound done every 6 months last done 01/09/20 Hx of basal cell carcinoma excision Hx of Achilles tendon repair History of esophagogastroduodenoscopy (EGD) (~01/16/20) multiple Previous back surgery S/P hernia repair S/P shoulder surgery Family History Mother Breast cancer Sister Breast cancer Heart disease Diabetes Sister Breast cancer Hypertension Brother Cancer leukemia Brother Heart disease Diabetes Hypertension Maternal Grandmother Heart disease Father Diabetes Hypertension Social History Smoking/Tobacco Use Status: Never Smoking risk assessment performed?: Yes Alcohol Intake: former Year quit: 2019 Drug use: Current Sobriety Substance use type: does not use and former substance user Details: In recovery per pt. Housing: house Current gender identity: male Do you feel safe at home: Yes Do you feel safe in your relationship?: Yes
[2024-01-20 16:35] LABS: BE (Venous) 0 mmol/L (-2-3); HCO3 (Venous) 25 mmol/L (23-28); O2 Sat (Venous) 88 %; TCO2 (Venous) 22 mmol/L (24-29); pCO2 (Venous) 37 mmHg (41-51); pH (Venous) 7.43 (7.31-7.41); pO2 (Venous) 53 mmHg
[2024-01-20 16:39] LABS: Absolute Basophil Count 0.03 10^3/uL (0.0-0.2); Absolute Eosinophil Count 0.05 10^3/uL (0.0-0.7); Absolute Lymphocyte Count 0.61 10^3/uL (1.2-3.4); Absolute Neutrophil Count 1.67 10^3/uL (1.2-6.7); Basophils % 1.1 %; Eosinophils % 1.9 %; HCT 39.2 % (40.0-50.0); HGB 13.9 g/dL (13.5-17.5); Lymphocytes % 22.9 %; MCH 33.3 pg (27.0-33.0); MCHC 35.5 % (32.0-36.0); MCV 94 fL (80-95); MPV 8.2 fL (8.0-11.0); Monocytes % 11.3 %; Neutrophils % 62.8 %; Platelet Count 115 10^3/uL (130-400); RBC 4.17 10^6/uL (4.36-5.78); RDW 13.9 % (11.8-14.1); RDW-SD 47.1 fL; WBC 2.66 10^3/uL (4.4-10.8)
[2024-01-20 17:24] LABS: Ammonia 28 umol/L (11-32)
[2024-01-20 17:37] LABS: Acetaminophen 3 ug/mL (10-30); Salicylate < 2.8 mg/dL (<2.8)
[2024-01-20 17:38] LABS: ALT 41 U/L (16-63); AST 40 U/L (15-37); Albumin 3.5 g/dL (3.4-5.0); Alkaline Phosphatase 101 U/L (46-116); BUN 17 mg/dL (7-18); Bilirubin, Total 1.83 mg/dL (0.2-1.0); Calcium 9.5 mg/dL (8.5-10.1); Chloride 110 mmol/L (98-107); ETHANOL BLOOD < 3.0 mg/dL (<10); Estimated GFR 80.97 (mL/min/1.73m2); Glucose 166 mg/dL (74-106); Potassium 3.9 mmol/L (3.5-5.1); Sodium 146 mmol/L (136-145); TSH (W/Ref FT4) 0.58 uIU/mL (0.36-3.74); Total Protein 7.3 g/dL (6.4-8.2)
[2024-01-20 17:45] LABS: INR 1.2 (0.9-1.1); PTT Activated 26.6 sec (23.6-32.8); Prothrombin Time 12.1 sec (9.1-11.1)
[2024-01-20 17:46] LABS: Bilirubin Negative (Negative); Blood Moderate (Negative); Clarity Clear (Clear); Glucose >=1000 mg/dL (Negative); Ketones Negative (Negative); Leukocyte Esterase Negative (Negative); Nitrite Negative (Negative); Specific Gravity 1.015 (1.005-1.025)
[2024-01-20 17:57] LABS: RBC 20-50 HPF (0-2)
[2024-01-20 17:58] LABS: *AMPHETAMINES SCREEN URINE Negative (Negative); *BARBITURATES SCREEN URINE Negative (Negative); *BENZODIAZEPINES SCREEN URINE Negative (Negative); Cannabinoids THC Negative (Negative); Cocaine Screen,Urine Negative (Negative); METHADONE URINE SCREEN Negative (Negative); OPIATES URINE SCREEN Negative (Negative)
[2024-01-20 17:59] LABS: Bacteria Few HPF (Negative); Crystals Negative HPF (Negative); Epithelial Cells Rare HPF (Negative); Mucus Negative (Negative)
[2024-01-20 18:00] LABS: C & S Indicated? No; Casts 0-2 Coarse Granular LPF (Negative); Tricyclic Antidepressants Negative (Negative)
[2024-01-20 18:15] LABS: Vitamin B12 1475 pg/mL (193-986)
[2024-01-20 18:16] LABS: Folate > 20.0 ng/mL (8.6-20.0)
--- NOTE | 2024-01-24 15:48 | W.PM.PROGNOT ---
Date of Service Date of service: 01/23/24 Time of Service: 15:48 Assessment and Plan Assessment and plan (1) Gastritis: Status: Acute (2) Esophageal reflux: Status: Chronic (3) Esophagitis: Status: Acute (4) Duodenal ulcer disease: Status: Acute Assessment and plan: I did review the notes from general surgery at [facility]. Patient was admitted inpatient in June for quite some time with right upper quadrant pain. He does have a known history of gallstones. He did have duodenitis at that time as well. When the surgeon from [facility] saw the patient he has been asymptomatic since September. He recommended another EGD to rule out further duodenal disease. He did not recommend surgery at this time since he is asymptomatic. The patient is interested in getting another EGD. I did review the notes from [facility] and his lab work. He was recently in the ED for confusion. The patient states this was due to narcotic pain meds that he had received for a orthopedic injury. Patient states he has not taking this medication anymore and his sensorium has cleared. He had no problems with anesthesia over the procedure last time He will need to hold the invokana 3 days prior to the procedure we will check his blood sugar the day of the procedure He would be an ASA grade 3 but acceptable risk for [facility]. I will to update his H&P the day of the procedure. Patient will be contacted to schedule and review his preop information (5) Gastroenteritis: Status: Acute (6) Cholelithiasis: Status: Acute (7) Gallstones: Status: Chronic (8) Hepatitis C: (9) Esophageal varices: Status: Chronic Qualifiers: Esophageal varices type: secondary Esophageal varices bleeding: without bleeding Qualified Code(s): I85.10 - Secondary esophageal varices without bleeding (10) Anemia: Qualifiers: Anemia type: unspecified type Qualified Code(s): D64.9 - Anemia, unspecified (11) Pancytopenia: (12) Hx of non-insulin dependent diabetes mellitus: (13) S/P TIPS (transjugular intrahepatic portosystemic shunt): Objective Last Vital Signs Temp 36.8 C 01/20/24 16:09 Pulse 80 01/20/24 16:09 Resp 18 01/20/24 16:09 BP 163/83 H 01/20/24 15:42 Pulse Ox 98 01/20/24 16:09 Time Spent with Patient Time Spent with Patient: <25 minutes Time was spent: preparing to see the patient(eg.review tests), ordering medications,tests, procedures, indepentently interpreting results and care coordination
[2024-01-25 01:31] LABS: Thiamine (Vitamin B1), WB 135 nmol/L (70-180)
== END 2024-01-20 19:19 | disposition home or self-care (01) ==
PROVIDERS: Emergency Provider Emergency Medicine; PCP Physician Assistant
DX: R41.0 Disorientation, unspecified (principal); B19.20 Unspecified viral hepatitis C without hepatic coma; D64.9 Anemia, unspecified; D61.818 Other pancytopenia; Z86.39 Personal history of other endocrine, nutritional and metabolic disease; Z95.828 Presence of other vascular implants and grafts
CPT/HCPCS: 36415; 80053; 80307; 82805; 88305; 93005; 99285; 70450; 71046; 80320; 80329; 81003; 81015; 82140; 82607; 82746; 83735; 84425; 84443; 85025; 85610; 85730; 93010; 99284

== ENCOUNTER 2024-01-31 10:28 | Day surgery (SDC) | payer OTHER, SELFPAY ==
--- NOTE | 2024-01-30 15:05 | PDOC.DSDIS_ITS ---
Date of service: 01/31/24 Time of Service: 12:28 Discharge Plan Disposition Patient Disposition: Home Condition: Good Discharge Details Reason For Visit: egd Attending Provider: Sari Yusuf Primary Care Provider: George Lou Home Meds and New Rx's Prescriptions: Continued Centrum Silver 0.4-300-250 mg-mcg-mcg tablet 1 tab PO DAILY ondansetron 4 mg tablet,disintegrating 4 mg PO Q8H PRNQty: 30 0RF Invokana 100 mg tablet 100 mg PO DAILY atorvastatin 20 mg tablet 20 mg PO DAILY lisinopril 10 mg tablet 10 mg PO DAILY Lumigan 0.01 % drops 1 drp ophthalmic (eye) DAILY Changed pantoprazole 40 mg tablet,delayed release (DR/EC) 40 mg PO DAILY Qty: 0 12RF Discontinued sucralfate 1 gram Tablet 1 g PO AC & HS 30 Days Qty: 120 1RF Discharge Instructions Additional Instructions: Post EGD Instruction ?You had anesthesia for your EGD/stomach scope today.? For your safety, please do the following for the next twenty-four (24) hours: Do Not operate a motor vehicle (car, truck, motorcycle, etc.) Do Not drink alcoholic beverages or use any recreational drugs for the first 24 hours or while taking pain medications. The medications in your body may have a reaction that can be dangerous. Do Not make any important decisions or sign any important papers You have just had a gastroscopy (EGD) or upper GI tract examination. It is impo rtant for your smooth recovery that you carefully follow the recommendations below. Do not hesitate to call if any questions should arise about your anesthesia, condition, or care. -Symptoms you may experience during the next 24 hours: ?1. Mild abdominal pain or excessive gas or a bloated feeling which improves with rest, liquids, eating? slightly, and walking as tolerated. 2. Drowsiness and/or forgetfulness because of the medications you were given. 3. A sore throat which you can treat with throat lozenges or by gargling with salt water 4-5 times a day. 4. Redness at the site of your IV which you can treat with warm compresses. SPECIAL INSTRUCTIONS: 1. You may resume your previous diet in one hour. We recommend a light meal to start, then progress as tolerated. 2. Restart regular medications in one hour. 3. No aspirin or non-steroidal containing medication for 24 hrs. 4. No lifting over 20 pounds or strenuous activity for the first 24 hours after your procedure. After 24 hours there are no restrictions on your activity, but you may feel fatigued for a few days. -Findings: Mild gastritis and duodenitis. The ulcer has healed. -Medications: Continue Protonix. Prescription was placed. Stop Carafate -Follow-up with Dr. Lou this week to discuss refilling the Invokana -Continue to follow lifestyle modifications: No alcohol, tobacco products, Aspirin or NSAID's (ibuprofen, Motrin, Naprosyn, aleve, etc).? Try to limit/avoid:? soda pop/any carbonated beverages, caffeine (including tea & chocolate), and acidic foods, (tomatoes, citrus, onions, peppermints) spicy or fried/fatty foods. Do not lie down for 30 minutes after eating, and do not eat 2 hours prior to bedtime. Avoid wearing tight fitting clothing/ belts. Follow up: -My office will send a letter with the results of your biopsy?s in 2-3wks time. Call the office at [phone] (Office) or [phone] (Hospital), or go to the ER right away if you notice any of the followin. Vomiting blood and /or ?coffee ground? material. ?2. Worsening of abdominal pain or cramping. ?3. Trouble with breathing, cough, and/or fever (temperature above 101.5 F). 4. Increasing pain with swallowing. ?5. Chest pain. 6. Any new symptoms. 7. Worsening of the redness at the IV site Activity:: see above Diet:: see above Discharge Orders Discharge Orders: Discharge Order (Routine); Ordered 01/31/24 Ordered By: Sari Yusuf DS: Diagnosis Discharge Diagnosis (1) Gastritis: Status: Acute (2) Esophageal reflux: Status: Chronic (3) Esophagitis: (4) Gastroenteritis: (5) Cholelithiasis: Status: Acute (6) Hepatic encephalopathy: (7) History of GI bleed: (8) Hx of non-insulin dependent diabetes mellitus: (9) Drug abuse: (10) Anemia: (11) Red blood cell antibody positive with compatible PRBC difficult to obtain: (12) S/P TIPS (transjugular intrahepatic portosystemic shunt): (13) Duodenitis: Status: Acute (14) Cirrhosis: Status: Chronic (15) Liver mass, left lobe: Status: Acute
--- NOTE | 2024-01-30 15:07 | W.PM.ENDDOP ---
Date of service: 01/31/24 Time of Service: 12:35 Endoscopy Report DATE OF PROCEDURE: 01/31/24 PRE-OP DIAGNOSIS: epigastric pain/hx of duodenal ulcer/anemia POST-OP DIAGNOSIS: other (Mild gastritis and duodenitis. Minimal narrowing in the duodenum from previous ulcer) SURGEON: Sari Yusuf ANESTHESIA TYPE: MAC ESTIMATED BLOOD LOSS: 1 PATHOLOGY: other COMPLICATIONS: None DISPOSITION: same day PROCEDURE DESCRIPTION: Informed consent was obtained from the pt; explaining the benefits and Risks: bleeding, infections, perforations {which could require surgery or antibiotics and prolonged hospital stay}, or ostomy, and complications of anaesthesia, randall aspiration). The patient was take to the procedure room and placed in a supine position. Monitors were applied and a time out was done. The patients name, date of , procedure type, allergies to medications and metal in their body was reviewed. A bite block was placed and the patient was sedated. Once sedated and comfortable an Olympus gastroscope (see RN notes for scope #) was advanced through the oropharynx which was grossly normal, and passed into the esophagus. The proximal and mid-esophagus were normal. The distal esophagus does not show any: dilation/strictures/varices/erosions or ulcers/bleeding noted. The scope was advanced into the stomach and through the pylorus into the proximal jejunum. The duodenum was noted to be mild duodenitis. There is some minimal narrowing of the duodenum from the previous duodenal ulcer. I am still able to easily pass the scope into D3. Biopsies were done of the duodenal bulb. The scope was retracted back into the stomach and biopsies were taken of the antrum. There is mild gastritis of the antrum radiating from the antrum in a striped fashion. There is no active bleeding or infection. Biopsies are taken. There were /gastropathy/ ulcers/masses noted. The scope was retroflexed. The cardia and fundus were noted to be normal. There is no hiatal hernia noted. The scope was retracted back into the esophagus and biopsies were done of the GE junction (in all 4 quadrants), to rule out Bernal's. All specimens are retrieved and no bleeding was noted. The Z line was regular. The scope was removed and the patient was woken up and taken back to [facility] in stable condition. -Patient was treated for H. pylori on his last visit. His biopsies and H. pylori antigen were negative. -Patient is out of Protonix and Carafate, to the best of my understanding. I did refill his Protonix. -Stop Carafate -Patient needs to follow-up with PCP in a week to evaluate his diabetes and see if he still needs to be on the Invokana. He is currently out of this medication. BS was 113 in preop. this was a fasting BS. -Patient has a new 2.6 cm mass in the left lobe of the liver. He does have a biopsy scheduled at [facility] on 02/06 @ 3pm. He needs to make sure that he goes to this biopsy
--- NOTE | 2024-01-30 15:08 | W.PM.DSUDISC ---
Discharge Plan Disposition Patient Disposition: Home Discharge Details Reason For Visit: egd Attending Provider: Sari Yusuf Primary Care Provider: George Lou Home Meds and New Rx's Prescriptions: No Action Centrum Silver 0.4-300-250 mg-mcg-mcg tablet 1 tab PO DAILY sucralfate 1 gram Tablet 1 g PO AC & HS 30 Days Qty: 120 1RF pantoprazole 40 mg tablet,delayed release (DR/EC) 40 mg PO BID 30 Days Qty: 60 1RF ondansetron 4 mg tablet,disintegrating 4 mg PO Q8H PRNQty: 30 0RF atorvastatin 20 mg tablet 20 mg PO DAILY lisinopril 10 mg tablet 10 mg PO DAILY Lumigan 0.01 % drops 1 drp ophthalmic (eye) DAILY Discharge Instructions Additional Instructions: Post EGD Instruction ?You had anesthesia for your EGD/stomach scope today.? For your safety, please do the following for the next twenty-four (24) hours: Do Not operate a motor vehicle (car, truck, motorcycle, etc.) Do Not drink alcoholic beverages or use any recreational drugs for the first 24 hours or while taking pain medications. The medications in your body may have a reaction that can be dangerous. Do Not make any important decisions or sign any important papers You have just had a gastroscopy (EGD) or upper GI tract examination. It is important for your smooth recovery that you carefully follow the recommendations below. Do not hesitate to call if any questions should arise about your anesthesia, condition, or care. -Symptoms you may experience during the next 24 hours: ?1. Mild abdominal pain or excessive gas or a bloated feeling which improves with rest, liquids, eating? slightly, and walking as tolerated. 2. Drowsiness and/or forgetfulness because of the medications you were given. 3. A sore throat which you can treat with throat lozenges or by gargling with salt water 4-5 times a day. 4. Redness at the site of your IV which you can treat with warm compresses. SPECIAL INSTRUCTIONS: 1. You may resume your previous diet in one hour. We recommend a light meal to start, then progress as tolerated. 2. Restart regular medications in one hour. 3. No aspirin or non-steroidal containing medication for 24 hrs. 4. No lifting over 20 pounds or strenuous activity for the first 24 hours after your procedure. After 24 hours there are no restrictions on your activity, but you may feel fatigued for a few days. -Findings: -Medications: -Continue to follow lifestyle modifications: No alcohol, tobacco products, Aspirin or NSAID's (ibuprofen, Motrin, Naprosyn, aleve, etc).? Try to limit/avoid:? soda pop/any carbonated beverages, caffeine (including tea & chocolate), and acidic foods, (tomatoes, citrus, onions, peppermints) spicy or fried/fatty foods. Do not lie down for 30 minutes after eating, and do not eat 2 hours prior to bedtime. Avoid wearing tight fitting clothing/ belts. Follow up: -My office will send a letter with the results of your biopsy?s in 2-3wks time. Call the office at [phone] (Office) or [phone] (Hospital), or go to the ER right away if you notice any of the followin. Vomiting blood and /or ?coffee ground? material. ?2. Worsening of abdominal pain or cramping. ?3. Trouble with breathing, cough, and/or fever (temperature above 101.5 F). 4. Increasing pain with swallowing. ?5. Chest pain. 6. Any new symptoms. 7. Worsening of the redness at the IV site Activity:: see above Diet:: see above Discharge Orders Discharge Orders: Discharge Order (Routine); Ordered 01/31/24 Ordered By: Sari Yusuf DS: Diagnosis Discharge Diagnosis (1) Esophageal varices: Status: Chronic (2) Gastritis: Status: Acute (3) Esophageal reflux: Status: Chronic (4) Esophagitis: Status: Acute (5) Duodenal ulcer disease: Status: Acute (6) Gastroenteritis: Status: Acute (7) Cholelithiasis: Status: Acute (8) Hepatitis C: (9) Hepatic encephalopathy: (10) History of GI bleed: (11) Hx of non-insulin dependent diabetes mellitus: (12) Drug abuse: (13) Anemia: (14) Red blood cell antibody positive with compatible PRBC difficult to obtain: (15) S/P TIPS (transjugular intrahepatic portosystemic shunt):
--- NOTE | 2024-01-30 15:08 | W.PM.HP.N ---
Date of service: 01/31/24 Time of Service: 11:49 Assessment and Plan Assessment and plan (1) Esophageal varices: Status: Chronic Qualifiers: Esophageal varices bleeding: without bleeding Esophageal varices type: secondary Qualified Code(s): I85.10 - Secondary esophageal varices without bleeding (2) Gastritis: Status: Acute (3) Esophageal reflux: Status: Chronic (4) Esophagitis: Status: Acute (5) Duodenal ulcer disease: Status: Acute Assessment and plan: Informed consent is obtained for the procedural (explained in simple layman's terms that the pt. and/or family could understand) explaining risks vs benefits and alternatives to the procedure and consequences if we do not do the procedure and need/rational for the procedure. Risks include but are not limited to: bleeding, infection, perforation of esophagus, stomach, colon, small intestines, bronchus or trachea, or PTX. This would necessitate emergency surgery to repair the damage w/ possible ostomy; and other associated complications w/ the required surgery. Also complications of anesthesia including aspiration, MS/CVA/. (6) Gastroenteritis: Status: Acute (7) Cholelithiasis: Status: Acute (8) Cirrhosis: Status: Chronic Qualifiers: Ascites presence: without ascites Hepatic cirrhosis type: unspecified hepatic cirrhosis Qualified Code(s): K74.60 - Unspecified cirrhosis of liver (9) Gallstones: Status: Chronic (10) Hx of non-insulin dependent diabetes mellitus: (11) Drug abuse: (12) Hepatitis C: (13) History of GI bleed: (14) Anemia: Qualifiers: Anemia type: unspecified type Qualified Code(s): D64.9 - Anemia, unspecified (15) Pancytopenia: (16) Red blood cell antibody positive with compatible PRBC difficult to obtain: (17) Liver mass, left lobe: Status: Acute History of Present Illness Narrative: Patient is here today for EGD at request of consulting Sx from [facility]. Pt was refferred in August and was seen 01/22. Pt was not having RUQ pain at the time- like he was when he was in hospital in August. [facility] Sx requesting repeat egd to r/o recurrence of duoneal ulcer. ? They not having any chest pain or shortness of breath, currently.? They are not experiencing any fever or chills.? They deny any productive cough or upper respiratory tract infection signs or symptoms.? They are not having abdominal pain, or nausea and vomiting.? They have not had any changes in medications, past medical history or past surgical history since previously being seen in the office. They have not had any accidents or have been in the ER since the clinic pre-operative evaluation. ??I reviewed the procedure with the patient today, including risks and benefits of the procedure, and what they could expect at home for recovery.? All questions are answered to the patient?s satisfaction today, and they are stable to proceed with the proposed procedure. Patient is a 5-year-old male who was in the hospital at [facility] in August with acute cholecystitis. He underwent his routine follow-up on his TIPS in November. He had a solid and cystic mass in the left lobe measuring 2.6 cm that was new to prior prior exam and had an MRI of this to evaluate for hepatocellular carcinoma. The ultrasound did not show any signs of acute cholecystitis. He has known history of gallstone disease. The ultrasound did not show any size of acute cholecystitis. I did review the MRI report which is confusing. As they said the lesion was no change in size to the prior ultrasound report and this is a new lesion. They also noted some cysts in the head neck body and tail of the pancreas. He probably has some chronic pancreatitis. He is scheduled on 02/06 to undergo a biopsy of this lesion at [facility]. Further recommendations depending on the results of the biopsy. He does have a follow-up with oncology scheduled. They did have a tumor board on him recommending further follow-up including an AFP and a CT of the chest. I do not know if this was done. Patient is mildly confused today and knows that he has a biopsy scheduled but does not know any other information regarding the new 2.6 cm mass in the left lobe of the liver. As far as his medications go he has run out of his Invokana and has not been taking this. His blood sugar today is 113. He is no longer taking the RightFaxamine or the lactulose. He has a right clavicle fracture that he sustained in late December. He was in the ER on 01/19 with confusion. His ammonia at that time was 28. The confusion was thought to be due to narcotic meds that he was taking for pain from his recent right clavicle fracture. He is not planning on having any surgery from this. Patient states he continues to have right upper quadrant pain. He has had no nausea and vomiting. He has been able to eat. He has not noticed any blood in his stools or melena. Patient is stable for procedure today Review of Systems All systems reviewed & are unremarkable except as noted in HPI and below PFSH All Active Problems (Updated 01/31/24 @ 11:57 by Sari Yusuf DO) Liver mass, left lobe (Acute) 2.6 cm bx at [facility] on 02/06 Confusion (Acute) Gastroenteritis (Acute) Cholelithiasis (Acute) Gastritis (Acute) Esophageal reflux (Chronic) Esophagitis (Acute) Left rotator cuff tear (Acute) Duodenal ulcer disease (Acute) Gallstones (Chronic) Cirrhosis (Chronic) Esophageal varices (Chronic) Medical History Melena Nausea & vomiting Hx of caloric malnutrition Anemia Red blood cell antibody positive with compatible PRBC difficult to obtain Drug abuse Left inguinal hernia Hepatitis C Fully treated Hx of non-insulin dependent diabetes mellitus Hx of pneumothorax History of rib fracture Hx of fracture of clavicle Scoliosis Hepatic encephalopathy Pancytopenia Red blood cell antibody positive with compatible PRBC difficult to obtain History of GI bleed variceal Surgical History S/P TIPS (transjugular intrahepatic portosystemic shunt) Has ultrasound done every 6 months last done 09/2023 Hx of basal cell carcinoma excision Hx of Achilles tendon repair History of esophagogastroduodenoscopy (EGD) (~01/16/20) multiple Previous back surgery S/P hernia repair S/P shoulder surgery Family History Mother Breast cancer Sister Breast cancer Heart disease Diabetes Sister Breast cancer Hypertension Brother Cancer leukemia Brother Heart disease Diabetes Hypertension Maternal Grandmother Heart disease Father Diabetes Hypertension Social History Smoking/Tobacco Use Status: Never Smoking risk assessment performed?: Yes Alcohol Intake: former Year quit: 2019 Drug use: Current Sobriety Substance use type: does not use and former substance user Details: 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 Housing: apartment Current gender identity: male Do you feel safe at home: Yes Additional Social history: lives alone Meds Allergies and Home Medications Allergies Allergy/AdvReac Type Severity Reaction Status Date / Time zolpidem (From Ambien) AdvReac Other (See Verified 01/31/24 10:57 Comment) Home Medications ?Medication ?Instructions ?Recorded ?Confirmed ?Type tzvqkdny-uca-pexmt acid 0.4 1 tab PO DAILY 11/16/19 01/30/24 History mg-lycopene 300 mcg-lutein 250 mcg tablet (Centrum Silver) atorvastatin 20 mg tablet 20 mg PO DAILY 08/19/23 01/31/24 History bimatoprost 0.01 % eye drops 1 drp ophthalmic (eye) DAILY 08/19/23 01/31/24 History (Lumigan) lisinopril 10 mg tablet 10 mg PO DAILY 08/19/23 01/31/24 History sucralfate 1 gram tablet 1 g PO AC & HS 30 days #120 tabs 08/29/23 01/31/24 Rx ondansetron 4 mg disintegrating 4 mg PO Q8H PRN #30 tabs 01/10/24 01/31/24 Rx tablet canagliflozin 100 mg tablet 100 mg PO DAILY 01/31/24 01/31/24 History (Invokana) pantoprazole 40 mg tablet,delayed 40 mg PO DAILY 01/31/24 01/31/24 History release Exam Narrative Exam Narrative: PHYSICAL EXAM GENERAL APPEARANCE: , oriented, x 3,? in no acute distress HYDRATION: Well hydrated HEAD, EYES, EARS, NECK, THROAT: Head is normocephalic, pupils equal, round, reactive to light and accommodation, ocular movement intact, sclera clear and no jaundice. ?Dentition intact. LUNGS: normal respiration/normal chest excursion. ?Clear to auscultation bilaterally. ?No wheeze. ?HEART: Regular rate and rhythm. no murmurs ABDOMEN: soft and non-tender to palpation.? Normal bowel sounds.? Time Spent Time spent with Patient: 40-54 minutes Time was spent: preparing to see the patient(eg.review tests), obtaining and/or reviewing separately otained hiistory, ordering medications,tests, procedures, referring, communicating with other health career development coordinator/teacher, indepentently interpreting results, counseling the patient, care coordination and other
[2024-01-31 10:45] VITALS: BP 157/65; PULSE 66; RESP 16; TEMP 36.4; O2SAT 99
--- NOTE | 2024-01-31 11:14 | W.ANESPRE ---
General Info Date of Service Date Performed: 01/31/24 Height: 5 ft 4 in Weight: 79.2 kg Body Mass Index (BMI): 29.9 Surgical Procedure: Operation Date: 01/31/24 11:05 Proposed Procedure Side Surgeon p Gastroscopy Sari Yusuf, DO Meds Allergies and Home Medications Allergies Allergy/AdvReac Type Severity Reaction Status Date / Time zolpidem (From Ambien) AdvReac Other (See Verified 01/31/24 10:57 Comment) Home Medication ?Medication ?Instructions ?Recorded yxuqynpv-ask-guefm acid 0.4 1 tab PO DAILY 11/16/19 mg-lycopene 300 mcg-lutein 250 mcg tablet (Centrum Silver) atorvastatin 20 mg tablet 20 mg PO DAILY 08/19/23 bimatoprost 0.01 % eye drops 1 drp ophthalmic (eye) DAILY 08/19/23 (Lumigan) lisinopril 10 mg tablet 10 mg PO DAILY 08/19/23 sucralfate 1 gram tablet 1 g PO AC & HS 30 days #120 tabs 08/29/23 ondansetron 4 mg disintegrating 4 mg PO Q8H PRN #30 tabs 01/10/24 tablet canagliflozin 100 mg tablet mg 01/31/24 (Invokana) pantoprazole 40 mg tablet,delayed 40 mg PO DAILY 01/31/24 release Current Visit Medications: Current Medications Generic Name Dose Route Start Last Admin Trade Name Freq PRN Reason Stop Dose Admin Hyoscyamine Sulfate 0.125 mg 01/31/24 03:04 Hyoscyamine 0.125 Mg Sl/Oral/Chew SL 03/01/24 03:03 DIRECTED PRN Ringer's Solution 1,000 mls @ 80 mls/hr 01/31/24 06:00 IV 02/29/24 23:59 INFUSION ARSENIO IV Miscellaneous Supplies 1 each 01/31/24 06:00 Iv Access IV 02/29/24 23:59 DIRECTED ARSENIO Ondansetron HCl 4 mg 01/31/24 03:04 Ondansetron 4 Mg/2 Ml Vial IVP 03/01/24 03:03 Q4H PRN PRN Nausea / Vomiting Sodium Chloride 0 ml 01/31/24 06:00 Normal Saline Flush 10 Ml Syr IV 02/29/24 23:59 PRN PRN Sodium Chloride 0 ml 01/31/24 06:00 Normal Saline 10 Ml Vial IJ 02/29/24 23:59 DIRECTED PRN Sterile Water 0 ml 01/31/24 06:00 Water,Injection,Sterile 10 Ml Vial IJ 02/29/24 23:59 DIRECTED PRN PFSH Active Problems Active Problems: Problem Status Onset Code Confusion Acute R41.0 Gastroenteritis Acute K52.9 Cholelithiasis Acute K80.20 Gastritis Acute K29.70 Esophageal reflux Chronic K21.9 Esophagitis Acute K20.90 Left rotator cuff tear Acute M75.102 Duodenal ulcer disease Acute K26.9 Gallstones Chronic K80.20 Cirrhosis Chronic K74.60 Esophageal varices Chronic I85.00 Medical History Medical History Melena Nausea & vomiting Hx of caloric malnutrition Anemia Red blood cell antibody positive with compatible PRBC difficult to obtain Drug abuse Left inguinal hernia Hepatitis C Fully treated Hx of non-insulin dependent diabetes mellitus Hx of pneumothorax History of rib fracture Hx of fracture of clavicle Scoliosis Hepatic encephalopathy Pancytopenia Red blood cell antibody positive with compatible PRBC difficult to obtain History of GI bleed variceal Medical History Comments:: Per pt. states he has fractured clavicle (R) seeing [facility] Surgical History Surgical History S/P TIPS (transjugular intrahepatic portosystemic shunt) Has ultrasound done every 6 months last done 09/2023 Hx of basal cell carcinoma excision Hx of Achilles tendon repair History of esophagogastroduodenoscopy (EGD) (~01/16/20) multiple Previous back surgery S/P hernia repair S/P shoulder surgery Tobacco Smoking/Tobacco Use Status: Never Alcohol Alcohol Intake: former Year quit: 2019 Substance Use Substance use: Current Sobriety Substance use type: does not use and former substance user Details: 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 Vital Signs and Lab Results Vital Signs Most Recent Vital Signs in EMR: Most Recent Vital Signs Temp Pulse Resp BP Pulse Ox 36.4 C L 66 16 157/65 H 99 01/31/24 10:45 01/31/24 10:45 01/31/24 10:45 01/31/24 10:45 01/31/24 10:45 Lab Results Blood Type / Crossmatch: No Data to Display Complete Blood Count: White Blood Count 2.66 10^3/uL (4.4-10.8) L 01/20/24 16:13 Red Blood Count 4.17 10^6/uL (4.36-5.78) L 01/20/24 16:13 Hemoglobin 13.9 g/dL (13.5-17.5) 01/20/24 16:13 Hematocrit 39.2 % (40.0-50.0) L 01/20/24 16:13 Platelet Count 115 10^3/uL (130-400) L 01/20/24 16:13 Venous Blood Lactate 2.3 mmol/L (0.6-1.4) H* 01/10/24 10:42 Complete Metabolic Panel: Sodium 146 mmol/L (136-145) H 01/20/24 17:04 Potassium 3.9 mmol/L (3.5-5.1) 01/20/24 17:04 Chloride 110 mmol/L (98-107) H 01/20/24 17:04 Carbon Dioxide 27.0 mmol/L (21.0-32.0) 01/20/24 17:04 BUN 17 mg/dL (7-18) 01/20/24 17:04 Creatinine 1.0 mg/dL (0.70-1.30) 01/20/24 17:04 Est GFR (CKD-EPI 2020) 80.97 (mL/min/1.73m2) 01/20/24 17:04 Magnesium 2.0 mg/dL (1.8-2.4) 01/20/24 17:04 Calcium 9.5 mg/dL (8.5-10.1) 01/20/24 17:04 Albumin 3.5 g/dL (3.4-5.0) 01/20/24 17:04 Glucose 166 mg/dL (74-106) H 01/20/24 17:04 Liver Function Panel: Alanine Aminotransferase (ALT/SGPT) 41 U/L (16-63) 01/20/24 17:04 Aspartate Amino Transf (AST/SGOT) 40 U/L (15-37) H 01/20/24 17:04 Coagulation Panel: INR International Normalized Ratio 1.2 (0.9-1.1) H 01/20/24 17:04 Prothrombin Time 12.1 sec (9.1-11.1) H 01/20/24 17:04 Activated Partial Thromboplast Time 26.6 sec (23.6-32.8) 01/20/24 17:04 Cardiac Panel: Troponin I 13 ng/L (<or=76) 01/10/24 Arterial Blood Gas: No Data to Display Venous Blood Gas: Venous Blood pH 7.43 (7.31-7.41) H 01/20/24 16:13 Venous Blood Partial Pressure O2 53 mmHg 01/20/24 16:13 Venous Blood Partial Pressure CO2 37 mmHg (41-51) L 01/20/24 16:13 Venous Blood Oxygen Saturation 88 % 01/20/24 16:13 Venous Blood HCO3 25 mmol/L (23-28) 01/20/24 16:13 Venous Blood Base Excess 0 mmol/L (-2-3) 01/20/24 16:13 Venous Blood Total Carbon Dioxide 22 mmol/L (24-29) L 01/20/24 16:13 Pancreas Panel: Lipase 58 U/L (16-77) 01/10/24 08:30 Thyroid Panel: Thyroid Stimulating Hormone (TSH) 0.58 uIU/mL (0.36-3.74) 01/20/24 17:04 Infectious Disease: No Data to Display Blood Cultures: No Data to Display Toxicology Panel: Ethyl Alcohol Level < 3.0 mg/dL (<10) 01/20/24 17:04 Urine Amphetamines Screen Negative (Negative) 01/20/24 17:36 Urine Benzodiazepines Screen Negative (Negative) 01/20/24 17:36 Urine Barbiturates Screen Negative (Negative) 01/20/24 17:36 Urine Cocaine Screen Negative (Negative) 01/20/24 17:36 Urine Methadone Screen Negative (Negative) 01/20/24 17:36 Urine Opiates Screen Negative (Negative) 01/20/24 17:36 Ur Tricyclic Antidepressants Screen Negative (Negative) 01/20/24 17:36 Ur Tetrahydrocannabinol (THC) Scrn Negative (Negative) 01/20/24 17:36 Imaging and Studies Imaging and Studies Study information below may be from another EMR and interpreted by another provider. Please see original notes in EMR for more complete details. EKG Summary: Conclusion Sinus rhythm...normal P axis, V-rate 60- 99 I have reviewed and interpreted ECG and agree with software generated interpretation. 08/19/23 Anesthesia Assessment and Plan Anesthesia History Personal History: No History of Anesthesia Complications and Pseudocholinesterase Deficiency Family History: No Family History of Anesthesia Complications Exercise Tolerance Exercise Tolerance: Metabolic Equivalents>4 Pertinent Negatives Pertinent Negatives: No Symptoms of GERD Cardiac & Pulmonary Exam Cardiac Exam: Normal S1/S2 Heart Sounds Pulmonary Exam: Clear Bilateral Breath Sounds Implantable Cardiac Device Does patient have a Pacemaker or an ICD?: No Airway Exam Known Difficult Airway: No Mallampati Class: 2 Mouth Opening: Normal (> 3cm) Thyromental Distance: Greater than 3 cm Neck Range of Motion: Full ROM Neck Circumference: Normal Teeth Condition: Normal Dentition (permanent bride upper front four teeth) ASA Classification ASA Score: ASA 3 Emergency Case?: No NPO Status NPO Status: NPO Clears >2 hours, Solids >8 hours Anesthesia Plan Resuscitation Status: Full Code Anesthesia Technique: General Anesthesia Airway Planned: Natural Airway Monitors Used: Standard Monitors
[2024-01-31 11:18] VITALS: BMI 29.9
[2024-01-31] MEDS: Lactated Ringers 1,000 ML 80 ML IV (11:50)
--- NOTE | 2024-01-31 12:10 | STOM_PTH ---
PATIENT: Alonzo Urbina LOC: [facility] U#:[id number] AGE/SX: 68/M ROOM: RE01/31/[address]: Sari Yusuf : 1955 BED: DIS: 01/31/2024 SPEC #: [id number] RECD: 01/31/24 12:50 STATUS: KALIN REQ #: [id number] RENEE: 01/31/24 12:[address]: Sari Yusuf DEPT: Surgical Specimen RECD BY: Eden Maurer ENTERED: 01/31/24 12:50 SP TYPE: STOMACH OTHR DR: George Lou Tissues: 1 - BIOPSY BOWEL 2 - STOMACH BIOPSY 3 - ESOPHAGUS BIOPSY Procedures: GROSS AND MICRO LEVEL 4 Comments: [id number]
[2024-01-31 12:19] VITALS: BP 142/64; PULSE 82; RESP 20; TEMP 36.8; O2SAT 97
[2024-01-31 12:50] VITALS: BP 154/77; PULSE 64; RESP 17; TEMP 36.8; O2SAT 99
--- NOTE | 2024-01-31 13:19 | W.ANESPOSTOP ---
Postoperative Evaluation Date, Time and Location Date Performed: 01/31/24 Time Performed: 13:20 Patient Location: Day Surgery Unit Vital Signs Most Recent Imported Vital Signs: Most Recent Vital Signs Temp Pulse Resp BP Pulse Ox 36.8 C 64 17 154/77 H 99 01/31/24 12:50 01/31/24 12:50 01/31/24 12:50 01/31/24 12:50 01/31/24 12:50 Pain Score Most Recent Pain Score: Most Recent Pain Score Pain Level 0 01/31/24 12:50 Assessment Mental Status: Awake (Alert & Oriented to Patient Baseline) Airway and Respiratory Function: Patent airway with normal (patient baseline) respiratory exam Cardiovascular Function: Hemodynamically Stable Hydration Status: Adequately Hydrated Nausea & Vomiting: No Nausea or Vomiting Pain: Pt. Denies Any Pain Peripheral Nerve Block: Patient did not receive a nerve block
== END 2024-01-31 13:30 | disposition home or self-care (01) ==
LOC: SUR 10:35
PROVIDERS: PCP Physician Assistant; Visit Provider Surgery
PROC: 0DJ68ZZ Inspection of Stomach, Via Natural or Artificial Opening Endoscopic (ICD-10-PCS; CPT 43235; principal; 2024-01-31 11:00)
DX: K29.70 Gastritis, unspecified, without bleeding (principal); K29.80 Duodenitis without bleeding; Z87.11 Personal history of peptic ulcer disease; D64.9 Anemia, unspecified; K31.89 Other diseases of stomach and duodenum
CPT/HCPCS: 43239; 88305; J2704

== ENCOUNTER 2024-02-14 15:35 | Outpatient (CLI) | payer OTHER, SELFPAY ==
--- NOTE | 2024-02-14 13:00 | DI.RAD_ITS ---
Exam(s) XR CLAVICLE RT EXAM: XR CLAVICLE RT CLINICAL HISTORY: F/U FRACTURE TECHNIQUE: 2D digital imaging was performed of the right clavicle. Two images were obtained. AP and axial views were obtained. COMPARISON: CR XR CLAVICLE RT from 12/21/2023 CR XR CLAVICLE RT from 01/03/2024 FINDINGS: BONES: There is again seen a fracture of the proximal right clavicle. There appears to be increased distraction of the fracture compared to the prior examination. There again seen postsurgical changes of resection of the distal clavicle. No bony destructive lesion is seen. JOINTS: No dislocation present. SOFT TISSUE: Normal IMPRESSION: Right clavicular fracture is again seen with increased distraction. DATA REPOSITORY: RADIATION DOSE DELIVERED:
== END 2024-02-14 15:36 | disposition home or self-care (01) ==
LOC: DIORS 02-15 07:46
PROVIDERS: PCP Physician Assistant; Visit Provider Student in an Organized Health Care Education/Training Program
DX: S42.001A Fracture of unspecified part of right clavicle, initial encounter for closed fracture (principal); X58.XXXA Exposure to other specified factors, initial encounter
CPT/HCPCS: 73000

== ENCOUNTER → 2024-02-28 07:47 | Outpatient (BNVA) | payer OTHER, SELFPAY | PROVIDERS: PCP Physician Assistant; Referring Provider Emergency Medicine; Visit Provider Psychiatry & Neurology Neurology | DX: G93.40 Encephalopathy, unspecified (principal); G62.9 Polyneuropathy, unspecified; R20.0 Anesthesia of skin | CPT/HCPCS: 99215 ==

== ENCOUNTER 2024-04-17 15:53 | Outpatient (CLI) | payer OTHER, SELFPAY ==
--- NOTE | 2024-04-17 13:00 | DI.RAD_ITS ---
Exam(s) XR CLAVICLE RT EXAM: XR CLAVICLE RT CLINICAL HISTORY: F/U FRACTURE TECHNIQUE: 2D digital imaging was performed of the right clavicle. Two images were obtained. AP and axial views were obtained. COMPARISON: CR XR CLAVICLE RT from 12/21/2023 CR XR CLAVICLE RT from 01/03/2024 CR XR CHEST 2V PA LATERAL from 01/20/2024 CR XR CLAVICLE RT from 02/14/2024 FINDINGS: BONES: The medial clavicular fracture is poorly visualized on this examination. The appearance of th e lateral fracture fragment is stable. No bony destructive lesion is seen. No new fracture is seen. There again appears to been resection of the lateral aspect of the clavicle at the acromioclavicular joint. JOINTS: No dislocation present. SOFT TISSUE: Normal IMPRESSION: DATA REPOSITORY: RADIATION DOSE DELIVERED:
== END 2024-04-17 15:54 | disposition home or self-care (01) ==
LOC: DIORS 15:54
PROVIDERS: PCP Physician Assistant; Visit Provider Student in an Organized Health Care Education/Training Program
DX: S42.011D Anterior displaced fracture of sternal end of right clavicle, subsequent encounter for fracture with routine healing (principal); X58.XXXD Exposure to other specified factors, subsequent encounter
CPT/HCPCS: 73000

== ENCOUNTER 2024-06-28 11:47 | Emergency (ER) | payer MEDICARE, SELFPAY ==
[2024-06-28 11:49] VITALS: BP 125/59; PULSE 88; RESP 18; TEMP 36.8; O2SAT 97
[2024-06-28] MEDS: Acetaminophen 500 MG TAB 1000 MG PO (12:11)
--- NOTE | 2024-06-28 12:13 | W.ED.GENAD ---
Discharge Plan Disposition Patient Disposition: Home Condition: Stable Discharge Details Clinical Impression: Closed fracture of left distal fibula Primary Care Provider: George Lou ED Provider: Abdiaziz Madrid Home Meds and New Rx's Prescriptions: Continued Centrum Silver 0.4-300-250 mg-mcg-mcg tablet 1 tab PO DAILY ondansetron 4 mg tablet,disintegrating 4 mg PO Q8H PRNQty: 30 0RF Invokana 100 mg tablet 100 mg PO DAILY pantoprazole 40 mg tablet,delayed release (DR/EC) 40 mg PO DAILY Qty: 0 12RF atorvastatin 20 mg tablet 20 mg PO DAILY lisinopril 10 mg tablet 10 mg PO DAILY Lumigan 0.01 % drops 1 drp ophthalmic (eye) DAILY sildenafil 100 mg tablet 100 mg PO PRN PRN Patient Comments: TAKE ONE TABLET BY MOUTH APPROX. 30 MIN PRIOR TO INTERCOURSE Discharge Instructions Instructions: Lower Leg Fracture ED Additional Instructions: You were seen in the emergency department for your fracture of your left distal fibula, please take 40 mg of ibuprofen every 6 hours, please take 650 mg of Tylenol 3 times per day for pain control. I do not think narcotic pain medicines are recommended for this injury as it will increase your risk of falling which would have severe surgical implications for your known fracture. It was recommended to you to undergo splinting by the orthopedic team here in the emergency department and be placed on crutches or a walker with complete nonweightbearing, you stated that you could not adhere to this recommended treatment plan and refused so you were placed in a tall walking boot and provided crutches and walker. I have sent a referral for home health physical therapy to determine how many home visits per week you need, you have follow-up arranged for July 10 at 2 PM. Referrals: [facility] [Provider Group] George Lou [Primary Care Provider] - Discharge Data Discharge Date/Time-TO BE ENTERED AT DEPARTURE: 06/28/24 15:47 HPI General Date/Time Provider Initiated Documentation: 06/28/24 11:53. HPI Narrative: 69 year-old male presents to ED today by POV/wheelchair with friend with a chief complaint of L ankle/lower leg pain from [place], walking [place] fishing [place] with onset today. Quality described as very painful, swollen, bruised, no radiation to complete numbness of foot, knee pain, skin tenting, bleeding/open wound. Severity is described as severe. Palliating factors include nothing specific attempted. Provoking factors include nothing specific. Patient not anticoagulated. Related Data Home Medications ?Medication ?Instructions ?Recorded ?Confirmed [id number]-[id number] acid 0.4 1 tab PO DAILY 11/16/19 06/28/24 mg-lycopene 300 mcg-lutein 250 mcg tablet (Centrum Silver) atorvastatin 20 mg tablet 20 mg PO DAILY 08/19/23 06/28/24 bimatoprost 0.01 % eye drops 1 drp ophthalmic (eye) DAILY 08/19/23 06/28/24 (Lumigan) lisinopril 10 mg tablet 10 mg PO DAILY 08/19/23 06/28/24 ondansetron 4 mg disintegrating 4 mg PO Q8H PRN #30 tabs 01/10/24 06/28/24 tablet canagliflozin 100 mg tablet 100 mg PO DAILY 01/31/24 06/28/24 (Invokana) pantoprazole 40 mg tablet,delayed 40 mg PO DAILY #0 tabs 01/31/24 06/28/24 release sildenafil 100 mg tablet 100 mg PO PRN PRN 06/28/24 06/28/24 Previous Rx's ?Medication ?Instructions ?Recorded ondansetron 4 mg disintegrating 4 mg PO Q8H PRN #30 tabs 01/10/24 tablet pantoprazole 40 mg tablet,delayed 40 mg PO DAILY #0 tabs 01/31/24 release Allergies Allergy/AdvReac Type Severity Reaction Status Date / Time oxycodone (From OxyContin) AdvReac Intermediate Other (See Verified 06/28/24 11:52 Comment) zolpidem (From Ambien) AdvReac Other (See Verified 06/28/24 11:52 Comment) General Stated Complaint: Orthopedic BAKARI: 4 Review of Systems All systems reviewed & are unremarkable except as noted in HPI and below Exam Narrative Exam Narrative: GENERAL APPEARANCE: Well-nourished, non-toxic, awake and alert, atraumatic, no acute distress. SKIN: Warm, pink, dry, intact, without rashes/lesions/ulcerations. HEAD: Normocephalic, atraumatic, normal hair distribution for gender/age. EYES: Normal conjunctiva, no exudates on lids/lashes. ENT: Nares patent, no circumoral cyanosis, no facial swelling NECK: Supple, trachea midline, painless cervical ROM. LUNGS/CHEST: Lungs CTA bilaterally, non-labored respirations, normal A/P diameter, symmetrical expansion, no chest wall deformity HEART (CV/PV): Regular rate and rhythm without murmur, no peripheral edema, no JVD. ABDOMEN: Soft, non-distended, no guarding. MSK: Normal ROM, no swelling/deformity to bilateral UEs or LEs, moving all extremities without weakness, no cyanosis, spine midline without tenderness, normal curvature, L LE: Swelling, tenderness, crepitus at the left lateral ankle, left dorsalis pedis pulse 2+, sensation intact in all toes, brisk capillary refill, no left fibular head tenderness NEURO: Mental Status AAOx4 - alert to person, place, time, events No facial droop, no forehead involvement. Motor: No focal weakness - strength 5/5 in bilateral UEs and LEs, proximal and distal, symmetric. Sensory: sensation intact to light touch globally. Gait antalgic with walker/crutches PSYCH: euthymic, cooperative, pleasant, appropriate speech Course Vital Signs Vital signs: Vital Signs Temperature 36.8 C 06/28/24 11:49 Pulse 88 06/28/24 11:49 Respiratory Rate 18 06/28/24 11:49 Blood Pressure 125/59 L 06/28/24 11:49 Pulse Oximetry 97 06/28/24 11:49 Temperature 36.8 C 06/28/24 11:49 Pulse 88 06/28/24 11:49 Respiratory Rate 18 06/28/24 11:49 Blood Pressure 125/59 L 06/28/24 11:49 Pulse Oximetry 97 06/28/24 11:49 Medical Decision Making This dictation utilizes [id number] dictation software and may contain unedited grammatical errors. 69 year-old male presents to ED today by POV/wheelchair with friend with a chief complaint of L ankle/lower leg pain from [place], walking to a [place] hole with onset today. Quality described as very painful, swollen, bruised, no radiation to complete numbness of foot, knee pain, skin tenting, bleeding/open wound. Severity is described as severe. Palliating factors include nothing specific attempted. Provoking factors include nothing specific. Patients' medical history: Cholelithiasis, liver mass with recent biopsy AVM, gastritis, gallstones, cirrhosis. Family and social history: Noncontributory, denies IVDU, question whether patient is still drinking. Pertinent exam findings / vital signs include swelling with tenderness and crepitus at the left lateral ankle, neurovascularly intact in the left foot, no left fibular head tenderness. Differential / pathologies of concern include fracture, sprain/strain. Diagnostic studies of: -XR left ankle, shows bimalleolar fracture of ankle with mild medial mortise widening Interventions of: -Ortho consulted, they were going to place in a splint for 0 weightbearing as to avoid surgery on the somewhat high fracture of the left distal ankle, I do question the slight tip avulsion at medial malleolus, patient states he will not participate in nonweightbearing so Ortho change the recommendation to cast boot. ED Course/Assessment/Plan: 69-year-old male presents with distal fibula fracture with slightly widened ankle mortise, he was seen by orthopedic PA Praneeth Sheriff who recommended nonweightbearing with splinting, the patient states he will not be compliant with nonweightbearing and wishes to be partially weightbearing with a walker and/or crutches, that therefore we placed him in a tall walking boot, he may end up causing significant instability to his fracture and requiring surgery due to his nonadherence to recommended plan. I had him evaluated by physical therapy he did well with both crutches and walker and was sent home with both as well as initiated on a home health physical therapy visit for as needed treatment, he has follow-up with orthopedics arranged. Recommend therapeutic dosing of Tylenol and ibuprofen, I do not wish to place the patient on opiates as he has presented with significant narcotic requests in the past and it would increase his fall risk around the home. Findings not consistent with neurovascular compromise. Disposition of Closed Fracture of Distal Left Fibula. Patient verbalized understanding of the plan and return to ED criteria and engaged in shared decision making. Medical Records Medical records reviewed: Yes I reviewed the patient's medical records. Imaging Data Radiologic Study: Attestation: I personally reviewed and interpreted this imaging study as follows: Imaging: X-Ray Radiologist's impression: EXAM: XR ANKLE LT COMPLETE CLINICAL HISTORY: L ankle pain TECHNIQUE: 2D digital imaging was performed. Three views. COMPARISON: No exams were available for comparison FINDINGS: BONES: There is an minimally displaced oblique fracture of the lateral malleolus extending to the level of the ankle mortise. There is a small fracture fragment at the tip of the medial malleolus no bony destructive lesion is seen. JOINTS:There is mild widening of the medial ankle mortise. SOFT TISSUE: Swelling around lateral malleolus. Calcification in the Achilles tendon. Tiny heel spurs. IMPRESSION: Fractures of the lateral malleolus and tip of medial malleolus with mild medial ankle mortise widening. Quality:SDMI Health Related Social Needs: No Data to Display PFSH All Active Problems (Updated 06/28/24 @ 15:19 by QUYNH Hale) Closed fracture of left distal fibula (Acute) Bimalleolar fracture of left ankle (Acute ~06/28/24) Numbness of right hand (Acute) Peripheral neuropathy (Acute) Encephalopathy acute (Acute) Right carpal tunnel syndrome (Acute) Duodenitis (Acute) Liver mass, left lobe (Acute) 2.6 cm bx at [facility] on 02/06 Cholelithiasis (Acute) Gastritis (Acute) Esophageal reflux (Chronic) Left rotator cuff tear (Acute) Gallstones (Chronic) Cirrhosis (Chronic) Medical History Esophagitis Duodenal ulcer disease Esophageal varices Melena Nausea & vomiting Hx of caloric malnutrition Anemia Drug abuse Left inguinal hernia Hepatitis C Fully treated Hx of non-insulin dependent diabetes mellitus Hx of pneumothorax History of rib fracture Hx of fracture of clavicle Scoliosis Hepatic encephalopathy Pancytopenia Red blood cell antibody positive with compatible PRBC difficult to obtain History of GI bleed variceal Surgical History S/P TIPS (transjugular intrahepatic portosystemic shunt) Has ultrasound done every 6 months last done 09/2023 Hx of basal cell carcinoma excision Hx of Achilles tendon repair History of esophagogastroduodenoscopy (EGD) (~01/16/20) multiple Previous back surgery Sanchez siva placement 1972 and then removal 1980 S/P hernia repair S/P shoulder surgery Family History Mother Breast cancer Sister Breast cancer Heart disease Diabetes Sister Breast cancer Hypertension Brother Cancer leukemia Brother Heart disease Diabetes Hypertension Maternal Grandmother Heart disease Father Diabetes Hypertension Social History Smoking/Tobacco Use Status: Never Smoking risk assessment performed?: Yes Alcohol Intake: former Year quit: 2019 Drug use: Current Sobriety Substance use type: does not use and former substance user Details: 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
--- NOTE | 2024-06-28 12:29 | DI.RAD_ITS ---
Exam(s) XR ANKLE LT COMPLETE EXAM: XR ANKLE LT COMPLETE CLINICAL HISTORY: L ankle pain TECHNIQUE: 2D digital imaging was performed. Three views. COMPARISON: No exams were available for comparison FINDINGS: BONES: There is an minimally displaced oblique fracture of the lateral malleolus extending to the lev el of the ankle mortise. There is a small fracture fragment at the tip of the medial malleolus no emiliano ny destructive lesion is seen. JOINTS:There is mild widening of the medial ankle mortise. SOFT TISSUE: Swelling around lateral malleolus. Calcification in the Achilles tendon. Tiny heel spu rs. IMPRESSION: Fractures of the lateral malleolus and tip of medial malleolus with mild medial ankle mortise widenin g. DATA REPOSITORY: RADIATION DOSE DELIVERED:
[2024-06-28] MEDS: oxyCODONE 5 MG TAB PO (13:00)
--- NOTE | 2024-06-28 13:35 | W.ORTHOCONSU ---
Date of service: 06/28/24 Time of Service: 13:35 Assessment and Plan Assessment and plan (1) Bimalleolar fracture of left ankle: Status: Acute Assessment and plan: 69-year-old male with mildy displaced left ankle bimalleolar fracture. Patient describes slipping in the mud prior to arrival sustaining a left ankle injury. Instantly had severe pain, felt a pop, and is unable to bear weight. Denies any other injury. Admits to some altered sensation about his toes. Patient admits that given his right clavicle fracture on 12/21/2023, crutches or a walker may be very challenging, not sure he can use them safely to be nonweightbearing. Also describes 13 steps in his apartment. Patient had previously been diagnosed with liver cancer, states that he received treatment and is now stable with 3-month follow-ups. Patient is able to have surgery if this required such. X-rays obtained in the ER, reveals a fracture, orthopedic consult is requested. Left ankle exam: Skin is intact without erythema or obvious deformity. There is diffuse moderate swelling, tenderness, and mild ecchymosis about the ankle, worse over the lateral malleolus. Demonstrates limited gentle ankle flexion and extension. Demonstrates the ability to wiggle all the toes. Sensation intact throughout but slightly altered about the toes. Normal pedal pulse and capillary refill. Left ankle x-ray ordered and reviewed, reveals fractures of the lateral malleolus gonzalez B and tip of medial malleolus with mild medial ankle mortise widening. Discussed in length with patient. Discussed plaster splint and nonweightbearing. Patient is not sure that he can safely or effectively use crutches or a walker given his prior right clavicle fracture, steps to his apartment, and believes that he will need to at least be partial weightbearing. Given this, plan to place into a tall walking boot. Will have PT come evaluate the patient in the ER before discharge to optimize protected weightbearing with crutches or a walker. Will follow-up in the orthopedic office about 10 days. Will obtain repeat imaging, patient does understand that if fracture is more displaced or mortise is to become more wide, it may require surgical intervention. Although his GI specialist previously commented that he would have a challenging time healing any fracture or surgery and was not considered a surgical candidate. All questions were answered. Agree and understand treatment plan. Will call if any changes or concerns. PFSH All Active Problems (Updated 06/28/24 @ 15:19 by QUYNH Hale) Closed fracture of left distal fibula (Acute) Bimalleolar fracture of left ankle (Acute ~06/28/24) Numbness of right hand (Acute) Peripheral neuropathy (Acute) Encephalopathy acute (Acute) Right carpal tunnel syndrome (Acute) Duodenitis (Acute) Liver mass, left lobe (Acute) 2.6 cm bx at [facility] on 02/06 Cholelithiasis (Acute) Gastritis (Acute) Esophageal reflux (Chronic) Left rotator cuff tear (Acute) Gallstones (Chronic) Cirrhosis (Chronic) Medical History Esophagitis Duodenal ulcer disease Esophageal varices Melena Nausea & vomiting Hx of caloric malnutrition Anemia Drug abuse Left inguinal hernia Hepatitis C Fully treated Hx of non-insulin dependent diabetes mellitus Hx of pneumothorax History of rib fracture Hx of fracture of clavicle Scoliosis Hepatic encephalopathy Pancytopenia Red blood cell antibody positive with compatible PRBC difficult to obtain History of GI bleed variceal Surgical History S/P TIPS (transjugular intrahepatic portosystemic shunt) Has ultrasound done every 6 months last done 09/2023 Hx of basal cell carcinoma excision Hx of Achilles tendon repair History of esophagogastroduodenoscopy (EGD) (~01/16/20) multiple Previous back surgery Sanchez siva placement 1972 and then removal 1980 S/P hernia repair S/P shoulder surgery Family History Mother Breast cancer Sister Breast cancer Heart disease Diabetes Sister Breast cancer Hypertension Brother Cancer leukemia Brother Heart disease Diabetes Hypertension Maternal Grandmother Heart disease Father Diabetes Hypertension Social History Smoking/Tobacco Use Status: Never Smoking risk assessment performed?: Yes Alcohol Intake: former Year quit: 2018 Drug use: Current Sobriety Substance use type: does not use and former substance user Details: 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
[2024-06-28 14:17] VITALS: BP 146/68; PULSE 71; RESP 18; O2SAT 99
--- NOTE | 2024-06-28 14:43 | PT.INIE ---
PT Notes Visit Reasons: L ankle fracture Physical Therapy Inpatient Initial Evaluation Date: Referring Doctor: QUYNH Mckeon PT Orders: PT CONSULT: Safety Consult for D/C Precautions: Fall. Standard. Protected weight bearing through the L LE per Dr. Aviles. Patient Profile/Admitting Diagnosis: Alonzo is a 69-year-old male patient who sustained a bimalleolar fracture on the L from slipping in the mud today. Orthopedic consult was made and Dr. Aviles recommended protected weight bearing through the L LE with fracture boot on at all times. PT consult was requested for safety recommendations and training with appropriate assistive ambulatory device. PMHX: All Active Problems (Updated 06/28/24 @ 15:19 by QUYNH Hale) Closed fracture of left distal fibula (Acute) Bimalleolar fracture of left ankle (Acute ~06/28/24) Numbness of right hand (Acute) Peripheral neuropathy (Acute) Encephalopathy acute (Acute) Right carpal tunnel syndrome (Acute) Duodenitis (Acute) Liver mass, left lobe (Acute) 2.6 cm bx at [facility] on 02/06 Cholelithiasis (Acute) Gastritis (Acute) Esophageal reflux (Chronic) Left rotator cuff tear (Acute) Gallstones (Chronic) Cirrhosis (Chronic) Medical History Esophagitis Duodenal ulcer disease Esophageal varices Melena Nausea & vomiting Hx of caloric malnutrition Anemia Drug abuse Left inguinal hernia Hepatitis C Fully treated Hx of non-insulin dependent diabetes mellitus Hx of pneumothorax History of rib fracture Hx of fracture of clavicle Scoliosis Hepatic encephalopathy Pancytopenia Red blood cell antibody positive with compatible PRBC difficult to obtain History of GI bleed variceal Surgical History S/P TIPS (transjugular intrahepatic portosystemic shunt) Has ultrasound done every 6 months last done 09/2023 Hx of basal cell carcinoma excision Hx of Achilles tendon repair History of esophagogastroduodenoscopy (EGD) (~01/16/20) multiple Previous back surgery Sanchez siva placement 1972 and then removal 1980 S/P hernia repair S/P shoulder surgery Social History/Home Situation: Lives alone in a private home with 13 steps to enter. Has friends who can provided support. Equipment Owned/DME: Fracture boot Subjective: Denied headache, chest pain, and lightheadedness throughout session. Added that he did fracture his R clavicle and prefers not to use the crutches. Objective: General Observation: Fracture boot on L LE. Mental Status: Alert and oriented as to person, place, time, and purpose. Able to pay attention, focus, and respond appropriately. Pain: 2-3/10 in the L anle that did not increase with WB Vital Signs: [place] monitored by nursing staff ROM: Right Upper Extremity: Shoulder Flexion WFL. Shoulder abduction WFL. Elbow flexion WFL. Wrist flexion WFL. Functional opening and closing of hand WFL. Left Upper Extremity: Shoulder Flexion WFL. Shoulder abduction WFL. Elbow flexion WFL. Wrist flexion WFL. Functional opening and closing of hand WFL. Right Lower Extremity: Hip flexion WFL. Hip abduction WFL. Knee flexion WFL. Ankle dorsiflexion WFL. Ankle plantarflexion WFL. Left Lower Extremity: Hip flexion WFL. Hip abduction WFL. Knee flexion WFL. Ankle dorsiflexion WFL. Ankle plantarflexion WFL. Strength: Right Upper Extremity: Shoulder flexors 4-/5. Shoulder abductors 4-/5. Elbow flexors 5-/5. Elbow extensors 4/5. Manual Qa Tester strong. Left Upper Extremity: Shoulder flexors 5/5. Shoulder abductors 5/5. Elbow flexors 5/5. Elbow extensors 5/5. Manual Qa Tester strong. Right Lower Extremity: Hip flexors 5/5. Hip abductors 5/5. Knee flexors 5/5. Knee extensors 5/5. Ankle dorsiflexors 5/5. Ankle plantarflexors 5/5. Left Lower Extremity: Hip flexors 5/5. Hip abductors 5/5. Knee flexors 5/5. Knee extensors 5/5. Ankle dorsiflexors NT. Ankle plantarflexors NT. Bed Mobility/Transfers: Rolling independent Supine to sit independent Sit to supine independent Sit to stand independent Stand to sit independent Gait: Facilitated safe and correct performance of level surface ambulation covering a distance of 30 feet with a front wheeled walker. High emphasis placed on putting them most a minimal weight through the left LE as ordered by orthopedic surgeon. Minimal verbal cueing provided for AD management, correct weight bearing precaution, weight distribution through AD, and posture to minimize pain report and reduce fall risk. Denied headache, chest pain, and lightheadedness throughout. Stairs: Education and training provided on safe and correct negotiation of 6 x 4 inch steps and 4 x 6 inch steps while holding on to both rails and then holding onto just one rail for safety using correct technique. No reported increased pain. Denied headache, chest pain, and lightheadedness throughout. Balance: Static Sitting: Normal Dynamic Sitting: Normal Static Standing: Fair Dynamic Standing: Fair Special Tests: Mobility Limitations Standardized Measure [facility] 6 clicks Basic Mobility Inpatient Short Form: Raw Score: 24 CMS Score: 0% deficit% deficit Informed Consent/Education: Patient was instructed in purpose of PT consult and need for functional mobility training. Assessment: Patient with bimalleolar fracture of L ankle sustain from a mechanical fall outside of house. Patient was given a fracture boot by orthopedic surgeon who deemed that surgical intervention was not indicated as of today. Patient was seen and demonstrated safety strategies with use of FWW with protected weight bearing through L LE on level surfaces and on stairs. Patient presents with clinical signs and symptoms consistent with current/admitting diagnoses that have resulted to mobility limitations, gait instability, generalized weakness, and overall ADL decline as demonstrated by the following impairment level findings: 1. Decreased strength to L ankle major muscle groups 2. Impaired sitting/standing balance 3. Impaired activity tolerance 4. Limitation of joint range of motion in L ankle (stabilized in fracture boot) Impairments are contributing to the following functional limitations: 1. Decline in bed mobility skills 2. Decline in transfer skills 3. Difficulty with ambulation without assistive device 4. Increased completion time for mobility ADL performance 5. Increased risk for falls 6. Minimal difficulty with managing steps due to WB precaution Patient is assessed as a 32197 moderate complexity based on the following: History: 69-year-old male with past medical history as indicated above Examination: Demonstrable impairment in strength, balance, and mobility level with underlying impairments and functional limitations as exhibited above Presentation: Evolving Decision Makin moderate complexity Goals: N/A. PT eval and one treatment session only for functional mobility training using appropriate AD Plan of Care/Treatment Plan: N/A. PT eval and one treatment session only for functional mobility training using appropriate AD goals X1 week 1. Supine-Sit independent 2. Sit-Supine independent 3. Sit-Stand independent 4. Stand-Sit independent 5. Bed-Chair independent 6. Chair-Bed independent 7. Independent gait on level surface with use of least restrictive device for at least 300 feet without report of pain nor dyspnea 8. Independent stair negotiation while holding onto bilateral rails for at least 10 steps without report of pain nor dyspnea 9. Independent with home exercise program 10. Good static and dynamic standing balance/tolerance DISCHARGE RECOMMENDATIONS: [] Home with no services [] [X] Home with services patient will benefit from home health PT services in order to progress mobility level using FWW, assess home safety, identify additional equipment needs, and continue with mobility progression/safety training at home to reduce fall risk. [] Home with outpatient PT [] [] SNF for continued rehabilitation [] [] Nursing Home Care [] [] SNF versus LTC based on ability to participate and progress [] TREATMENT CODE/TIME: 03197 x 20 minutes for 1 unit, 71110 x 10 minutes for 1 unit (14:43-15;13) Thank you for the opportunity to participate in the care of this patient. Aleida Julian PT, DPT, CLT [facility] [place], [place]
--- NOTE | 2024-06-28 15:28 | NUR.NOTE ---
Home Health face to face faxed to [facility]. Nursing Note:
== END 2024-06-28 15:47 | disposition home or self-care (01) ==
PROVIDERS: Emergency Provider Physician Assistant; PCP Physician Assistant
DX: S82.842A Displaced bimalleolar fracture of left lower leg, initial encounter for closed fracture (principal); E11.9 Type 2 diabetes mellitus without complications; W01.0XXA Fall on same level from slipping, tripping and stumbling without subsequent striking against object, initial encounter; Y93.01 Activity, walking, marching and hiking; Y92.838 Other recreation area as the place of occurrence of the external cause
CPT/HCPCS: 97162; 97530; 99283; 73610

== ENCOUNTER 2024-07-04 16:07 | Outpatient (CLI) | payer OTHER, SELFPAY ==
--- NOTE | 2024-07-04 14:30 | DI.RAD_ITS ---
Exam(s) XR CLAVICLE RT EXAM: XR CLAVICLE RT INDICATION: F/U FRACTURE. COMPARISON: CR XR CLAVICLE RT from 02/14/[address] CHEST WO CONTRAST from 03/01/2024 CR XR CLAVICLE RT from 04/17/2024 TECHNIQUE: 2D digital imaging was performed. Two views. FINDINGS: Proximal clavicle fracture appears unchanged. The alignment of the clavicle appears unchanged. Prox imal fragment is not well seen. Distal resection of the clavicle is again noted. There are degener ative changes of the glenohumeral joint. DATA REPOSITORY: RADIATION DOSE DELIVERED:
== END 2024-07-04 16:08 | disposition home or self-care (01) ==
LOC: DIORS 16:08
PROVIDERS: PCP Physician Assistant; Visit Provider Student in an Organized Health Care Education/Training Program
DX: S42.011D Anterior displaced fracture of sternal end of right clavicle, subsequent encounter for fracture with routine healing (principal); X58.XXXD Exposure to other specified factors, subsequent encounter
CPT/HCPCS: 73000

== ENCOUNTER 2024-07-16 12:10 | Inpatient (IN) | payer MEDICARE, SELFPAY ==
[2024-07-16] VITALS (84 sets, daily range): BP systolic 127–208; BP diastolic 56–114; PULSE 43–114; RESP 12–23; TEMP 36.3–36.8; O2SAT 84–100
--- NOTE | 2024-07-16 12:00 | DI.CT_ITS ---
Exam(s) CT BRAIN NECK CTA EXAM: CT BRAIN NECK CTA CLINICAL HISTORY: AMS. TECHNIQUE: Imaging Protocol: Axial CT angiography was performed with multi-slice acquisition and mu lti-planar and MIP reconstructions. CONTRAST MATERIAL: Intravenous: Omnipaque 350 Contrast volume:100 ml COMPARISON: CT CT HEAD WO from 01/20/2024 FINDINGS: CT Head W/O and W contrast: Ventricles and Extra axial spaces: Normal in size and morphology for the patient's age. Hemorrhage: None. Cerebral parenchyma: No evidence of acute infarct or mass. Moderate atrophy. Moderate to severe whi te matter changes small vessel disease. Midline shift: None. Brainstem/Cerebellum: No acute findings.. Calvarium: Normal. Visualized Paranasal sinuses/Mastoids: Clear. Soft Tissues: Unremarkable. Enhancement: Normal. CTA Brain W: Internal Carotid Arteries: Petrous: Normal. Cavernous: Normal. Cerebral: Normal. Middle Cerebral Arteries: Right: No aneurysm, occlusion or significant stenosis. Left: No aneurysm, occlusion or significant stenosis. Anterior Cerebral Arteries: Right: No aneurysm, occlusion or significant stenosis. Left: No aneurysm, occlusion or significant stenosis. Posterior cerebral Arteries: Right: No aneurysm, occlusion or significant stenosis. Left: No aneurysm, occlusion or significant stenosis. Vertebral Arteries: Right: No aneurysm, occlusion or significant stenosis. Left: No aneurysm, occlusion or significant stenosis. Basilar Artery: No aneurysm, occlusion or significant stenosis. CTA Neck W: Common Carotid: Right: Small focal calcification at the bulb. No dissection, occlusion or significant stenosis. Left: Focus of calcification at the bulb. No dissection, occlusion or significant stenosis. External Carotid: Right: No dissection, occlusion or significant stenosis. Left: No dissection, occlusion or significant stenosis. Internal Carotid: Right: No dissection, occlusion or significant stenosis. Left: No dissection, occlusion or significant stenosis. Vertebral Artery: Right: No dissection, occlusion or significant stenosis. Left: No dissection, occlusion or significant stenosis. Lung Apices: No acute findings. Bones: There degenerative changes in the spine. Prominent ligamentous calcification contributing to central canal stenosis at the C3 and C4 levels. Degenerative disc changes are noted throughout. Soft Tissues: Normal. IMPRESSION: 1. CTA brain: Normal CTA examination of the [place]. 2. Head CT: No evidence of acute infarct or hemorrhage. Atrophy and white matter changes of small ve ssel disease. 3. CTA neck: Foci of calcific plaque at both common carotid bulbs without significant stenosis. RADIATION DOSE DELIVERED: 2,398.82mGy.cm Total DLP DATA REPOSITORY: All CT scans at this facility are submitted to the National Radiology Data Registry (NRDR) Dose Index Registry (DIR) with the [employer] [employer] (ACR). RADIATION OPTIMIZATION: All CT scans at this facility use at least one of these dose optimization te chniques: automated exposure control; mA and/or kV adjustment per patient size (includes targeted exa ms where dose is matched to clinical indication); or iterative reconstruction.
--- NOTE | 2024-07-16 12:02 | ED.GENADUL_ITS ---
Discharge Plan Disposition Patient Disposition: Admit to [facility] Discharge Details Clinical Impression: Hyperammonemia, Acute encephalopathy Primary Care Provider: George Lou ED Provider: Torres Putnam [place] Meds and New Rx's Prescriptions: No Action Centrum Silver 0.4-300-250 mg-mcg-mcg tablet 1 tab PO DAILY Invokana 100 mg tablet 100 mg PO DAILY pantoprazole 40 mg tablet,delayed release (DR/EC) 40 mg PO DAILY Qty: 0 12RF latanoprost 0.005 % drops 1 drp ophthalmic (eye) QPM milk thistle seed extract 200 mg capsule 200 mg PO DAILY Rx Instructions: give with meal/snack Curica Turmeric 300 mg capsule 300 mg PO DAILY mecobalamin (vitamin B12) 500 mcg tablet,chewable 500 mcg PO DAILY cholecalciferol (vitamin D3) [Vitamin D3] 25 mcg (1,000 unit) capsule 25 mcg PO DAILY zinc glycinate 7.5 mg tablet,chewable 7.5 mg PO DAILY atorvastatin 20 mg tablet 20 mg PO DAILY lisinopril 10 mg tablet 10 mg PO DAILY Lumigan 0.01 % drops 1 drp ophthalmic (eye) DAILY sildenafil 100 mg tablet 100 mg PO PRN PRN Patient Comments: TAKE ONE TABLET BY MOUTH APPROX. 30 MIN PRIOR TO INTERCOURSE HPI General Date/Time Provider Initiated Documentation: 07/16/24 12:11 . HPI Narrative: MDM Broad differential of acute encephalopathy in this tachycardic but normothermic 69-year-old male with history of cirrhosis. CT angiogram showed no sign of any large vessel occlusion or any intracranial hemorrhage. Given the duration of time since the symptoms began patient not a candidate for tPA. No tonic-clonic activity to suggest seizure so no indication for EEG. No nuchal rigidity to suggest meningitis so we will defer lumbar puncture. I considered sepsis as patient was initially tachycardic so I mariama blood cultures. Will check a lactate and treat with 500 cc of crystalloid. Patient does not participate in testing of asterixis but was found to be hyperammonemic for which I treated him with lactulose. He has a soft nontender and nondistended abdomen so my suspicious for spontaneous bacterial peritonitis so I do not feel he requires paracentesis. Furthermore given his intermittent agitation I feel that the risks of paracentesis outweigh the benefits. I spoke with teleneurology and they advised the patient was not a tPA candidate. They recommend an MRI of the patient's brain and assessment of thiamine and B12 levels. His ethanol salic ylates and acetaminophen levels were unremarkable. Will obtain ECG to assess for widened QRS. Labs are consistent with DKA. Patient has no history of adrenal insufficiency so we will defer stress dose steroids. No purpura to suggest TTP. Patient no longer drinks and I suspicion for Warnicke's encephalopathy is low. 2:55 PM Labs notable for leukopenia mild normocytic anemia. No thrombocytopenia. Normal sodium level. No anion gap. Mild hyperglycemia but normal bicarbonate??not consistent with DKA. Patient has had similar symptoms in the past in the setting of opiate prescription. He is not having any respiratory depression to suggest opiate toxidrome so we will defer acute reversal with naloxone. His urine drug screen was positive for opiates. 4 PM No acute osseous abnormalities on ankle x-ray. I took down patient's ankle dressing and he had a well-healing wound and was under a clean dry and intact dressing. His original splint was maintained and he was rewrapped with new John bandage. His ankle film showed no acute abnormalities. His MRI showed no acute infarct. 4:30 PM I signed patient out to Dr. Enrique at bedside and gave him the teleneuro report. He graciously accepted the patient for hospitalization. HPI This is a 69-year-old male with history of cirrhosis status post remote TIPS arrived emergency department via EMS in the setting of confusion. Patient was reportedly last seen normal 2 days ago. Patient is unable to answer questions. His friend saw him today and activated EMS. He is 5 days postop status post ORIF of his left ankle in the setting of a bimalleolar fracture. Unable to obtain any additional history. Exam General: Elderly male in moderate distress Head: Normocephalic, atraumatic. Eye: No conjunctival injection. No scleral icterus. Ear, nose, mouth, throat: Grossly normal inspection. Normal voice, handling secretions normally. Neck: Trachea midline. Cardiovascular: Well-perfused distal extremities. Regular rate and rhythm. Respiratory: Nonlabored respiration. Clear lungs bilaterally. Gastrointestinal: Nondistended abdomen. Soft, nontender. Small volume ascites. Musculoskeletal: Left lower extremity wrapped in short leg splint. I took down patient's dressing and his surgical incision did not appear acutely infected. Left foot warm well-perfused. Emergency department Outsole Cutter Machine Shivani and patient's nurse Nancy rewrapped patient's foot and new John wrap. Skin: Normal for age and race, grossly normal temperature and turgor. No acute rash. Neurologic: Oriented to person but not place or time. Does not follow commands. GCS 12: E4, V3, M5 Unable to complete neurological assessment. Does not participate in cranial nerve testing. Related Data Home Medications ?Medication ?Instructions ?Recorded ?Confirmed [id number] acid 0.4 1 tab PO DAILY 11/16/19 07/16/24 mg-lycopene 300 mcg-lutein 250 mcg tablet (Centrum Silver) atorvastatin 20 mg tablet 20 mg PO DAILY 08/19/23 07/16/24 bimatoprost 0.01 % eye drops 1 drp ophthalmic (eye) DAILY 08/19/23 07/16/24 (Lumigan) lisinopril 10 mg tablet 10 mg PO DAILY 08/19/23 07/16/24 canagliflozin 100 mg tablet 100 mg PO DAILY 01/31/24 07/16/24 (Invokana) pantoprazole 40 mg tablet,delayed 40 mg PO DAILY #0 tabs 01/31/24 07/16/24 release sildenafil 100 mg tablet 100 mg PO PRN PRN 06/28/24 07/16/24 cholecalciferol (vitamin D3) 25 25 mcg PO DAILY 07/16/24 07/16/24 mcg (1,000 unit) capsule (Vitamin D3) latanoprost 0.005 % eye drops 1 drp ophthalmic (eye) QPM 07/16/24 07/16/24 mecobalamin (vitamin B12) 500 mcg 500 mcg PO DAILY 07/16/24 07/16/24 chewable tablet milk thistle seed extract 200 mg 200 mg PO DAILY 07/16/24 07/16/24 capsule turmeric root extract 300 mg 300 mg PO DAILY 07/16/24 07/16/24 capsule (Curica Turmeric) zinc glycinate 7.5 mg chewable 7.5 mg PO DAILY 07/16/24 07/16/24 tablet Previous Rx's ?Medication ?Instructions ?Recorded pantoprazole 40 mg tablet,delayed 40 mg PO DAILY #0 tabs 01/31/24 release Allergies Allergy/AdvReac Type Severity Reaction Status Date / Time oxycodone (From OxyContin) AdvReac Intermediate Other (See Verified 07/04/24 14:44 Comment) zolpidem (From Ambien) AdvReac Other (See Verified 07/04/24 14:44 Comment) General BAKARI: 4 Medical Decision Making Quality:SDOH Health Related Social Needs: No Data to Display PFSH All Active Problems (Updated 07/16/24 @ 16:06 by Torres Putnam MD) Acute encephalopathy (Acute) Hyperammonemia (Acute) Closed fracture of left distal fibula (Acute) Bimalleolar fracture of left ankle (Acute ~06/28/24) Numbness of right hand (Acute) Peripheral neuropathy (Acute) Encephalopathy acute (Acute) Right carpal tunnel syndrome (Acute) Duodenitis (Acute) Liver mass, left lobe (Acute) 2.6 cm bx at [facility] on 02/06 Cholelithiasis (Acute) Gastritis (Acute) Esophageal reflux (Chronic) Left rotator cuff tear (Acute) Gallstones (Chronic) Cirrhosis (Chronic) Medical History Esophagitis Duodenal ulcer disease Esophageal varices Melena Nausea & vomiting Hx of caloric malnutrition Anemia Drug abuse Left inguinal hernia Hepatitis C Fully treated Hx of non-insulin dependent diabetes mellitus Hx of pneumothorax History of rib fracture Hx of fracture of clavicle Scoliosis Hepatic encephalopathy Pancytopenia Red blood cell antibody positive with compatible PRBC difficult to obtain History of GI bleed variceal Surgical History S/P TIPS (transjugular intrahepatic portosystemic shunt) Has ultrasound done every 6 months last done 09/2023 Hx of basal cell carcinoma excision Hx of Achilles tendon repair History of esophagogastroduodenoscopy (EGD) (~01/16/20) multiple Previous back surgery Sanchez siva placement 1972 and then removal 1980 S/P hernia repair S/P shoulder surgery Family History Mother Breast cancer Sister Breast cancer Heart disease Diabetes Sister Breast cancer Hypertension Brother Cancer leukemia Brother Heart disease Diabetes Hypertension Maternal Grandmother Heart disease Father Diabetes Hypertension Social History Smoking/Tobacco Use Status: Never Smoking risk assessment performed?: Yes Alcohol Intake: former Year quit: 2019 Drug use: Current Sobriety Substance use type: does not use and former substance user Details: 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
--- NOTE | 2024-07-16 12:15 | DI.RAD_ITS ---
Exam(s) XR CHEST 1V IN DI DEPT EXAM: XR CHEST 1V IN DI DEPT CLINICAL HISTORY: Acute Encephalopathy TECHNIQUE: 2D digital imaging was performed. COMPARISON: CR XR CHEST 2V PA LATERAL from 01/20/[address] CHEST WO CONTRAST from 03/01/2024 FINDINGS: LUNGS: Clear. No pleural abnormality seen. HEART: Normal size. AORTA: Normal diameter. BONES: Multiple old left rib fractures. Old left clavicle fracture. Resection of the distal right c lavicle. Degenerative changes and scoliosis noted in the spine. Soft tissues: TIPS. IMPRESSION: No acute findings. DATA REPOSITORY: RADIATION DOSE DELIVERED:
[2024-07-16] MEDS: Omnipaque 350 MG/ML 100 ML BTL IJ (12:24)
[2024-07-16] MEDS: Normal Saline - Diluent 50 ML VIAL IJ (12:31)
[2024-07-16 12:52] LABS: Absolute Basophil Count 0.03 10^3/uL (0.0-0.2); Absolute Eosinophil Count 0.23 10^3/uL (0.0-0.7); Absolute Lymphocyte Count 0.36 10^3/uL (1.2-3.4); Absolute Neutrophil Count 2.28 10^3/uL (1.2-6.7); Basophils % 0.9 %; HCT 32.7 % (40.0-50.0); HGB 11.9 g/dL (13.5-17.5); Lymphocytes % 10.9 %; MCH 33.9 pg (27.0-33.0); MCHC 36.4 % (32.0-36.0); MCV 93 fL (80-95); MPV 8.2 fL (8.0-11.0); Monocytes % 12.1 %; Neutrophils % 69.1 %; Platelet Count 147 10^3/uL (130-400); RBC 3.51 10^6/uL (4.36-5.78); RDW 13.5 % (11.8-14.1); RDW-SD 46.3 fL
[2024-07-16 13:19] LABS: Ammonia 75 umol/L (11-32)
[2024-07-16 13:29] LABS: ALT 24 U/L (16-63); AST 33 U/L (15-37); Albumin 3.5 g/dL (3.4-5.0); Alkaline Phosphatase 148 U/L (46-116); Anion Gap 10.4 mmol/L (3-11); BUN 17 mg/dL (7-18); Bilirubin, Total 1.8 mg/dL (0.2-1.0); CO2 23.6 mmol/L (21.0-32.0); CREATININE 0.9 mg/dL (0.70-1.30); Calcium 9.7 mg/dL (8.5-10.1); Chloride 108 mmol/L (98-107); Estimated GFR 91.31 (mL/min/1.73m2); Glucose 147 mg/dL (74-106); Magnesium 1.8 mg/dL; Potassium 4.1 mmol/L (3.5-5.1); Sodium 142 mmol/L (136-145); TSH (W/Ref FT4) 0.67 uIU/mL (0.36-3.74); Troponin I 12 ng/L (<or=76)
[2024-07-16 13:34] LABS: Acetaminophen < 2 ug/mL (10-30); Salicylate < 2.8 mg/dL (<2.8)
[2024-07-16 13:40] LABS: ETHANOL BLOOD < 3.0 mg/dL (<10)
--- NOTE | 2024-07-16 14:15 | RT.EKG_ITS ---
APPROVED REPORT Exam: Resting ECG Reason for Exam: Altered mental status Patient Location: E HR:89 bpm ECG Measurements Heart Rate [address] 179 P 62 QRSd 85 QRS -9 QT 378 T 61 QTc 460 Conclusion Sinus rhythm...normal P axis, V-rate 60- 99 No STEMI
[2024-07-16 14:23] LABS: Troponin I 15 ng/L (<or=76)
--- NOTE | 2024-07-16 14:30 | DI.MRI_ITS ---
Exam(s) MR BRAIN WO EXAM: MR BRAIN WO CLINICAL HISTORY: Acute encephalopathy TECHNIQUE: Multiplanar multisequence MRI of the brain was performed. COMPARISON: CT CT HEAD WO from 01/20/[address] BRAIN NECK CTA from 07/16/2024 FINDINGS: VENTRICLES AND EXTRA AXIAL SPACES: Normal in size and morphology for the patient's age. MIDLINE SHIFT: None. CEREBRAL PARENCHYMA: No focus of restricted diffusion to suggest acute infarct. No space-occupying le keon identified. There are areas of hyperintensity seen on the T2 weighted images throughout the whit e matter most suggestive of chronic microvascular ischemic changes. There is no mass effect on the s ulci or adjacent ventricles secondary to the hyperintensity. There are several black areas seen on t he gradient images in the white matter. HEMORRHAGE: No acute hemorrhage is identified. BRAINSTEM/CEREBELLUM: Normal. CALVARIUM: Normal. VISUALIZED PARANASAL SINUSES/MASTOIDS:Clear. [place]: Normal flow void. PITUITARY GLAND: Unremarkable. OTHER FINDINGS: None. IMPRESSION: 1. No evidence of an acute infarct. 2. Age-appropriate cerebral atrophy. Areas of hyperintensity in the white matter on the FLAIR and T2 weighted images without mass effect likely reflecting chronic microvascular ischemic changes. 3. Black area is seen in the gradient images in the white matter. Differential considerations includ e cerebral amyloid disease, vascular malformations, trauma, old microhemorrhages. DATA REPOSITORY:
--- NOTE | 2024-07-16 14:45 | DI.RAD_ITS ---
Exam(s) XR ANKLE LT COMPLETE EXAM: XR ANKLE LT COMPLETE CLINICAL HISTORY: Postop ORIF bimalleolar fracture TECHNIQUE: 2D digital imaging was performed. Three views. COMPARISON: CR XR ANKLE LT COMPLETE from 06/28/2024 FINDINGS: A splint is in place. BONES: There has been interval placement a lateral malleolar fixation plate and mortise screw. The a lignment is anatomic. No gross bony destructive lesion is seen. JOINTS:The ankle mortise is normally aligned. SOFT TISSUE: Normal. IMPRESSION: Status post ORIF with anatomic alignment. No new abnormalities. DATA REPOSITORY: RADIATION DOSE DELIVERED:
[2024-07-16] MEDS: Midazolam 2 MG/2 ML VIAL 1 MG IVP (14:50)
[2024-07-16] MEDS: Lactulose 20 GM/30 ML CUP PO (14:50)
[2024-07-16] MEDS: cefTRIAXone 2 GM/50 ML BAG IVPB (14:50)
[2024-07-16 15:02] LABS: Lactate 1.9 mmol/L (<or=2.0)
[2024-07-16] MEDS: Midazolam 2 MG/2 ML VIAL IVP ×4 (15:17→17:38)
[2024-07-16 15:30] LABS: Bilirubin Negative (Negative); Blood Small (Negative); Clarity Clear (Clear); Glucose Negative (Negative); Ketones 15 mg/dL (Negative); Leukocyte Esterase Negative (Negative); Nitrite Negative (Negative)
[2024-07-16 15:39] LABS: *AMPHETAMINES SCREEN URINE Negative (Negative); *BARBITURATES SCREEN URINE Negative (Negative); *BENZODIAZEPINES SCREEN URINE Negative (Negative); Cannabinoids THC Negative (Negative); Cocaine Screen,Urine Negative (Negative); METHADONE URINE SCREEN Negative (Negative); OPIATES URINE SCREEN Positive (Negative)
[2024-07-16 15:40] LABS: Tricyclic Antidepressants Negative (Negative)
[2024-07-16 16:03] LABS: Bacteria Negative HPF (Negative); C & S Indicated? No; Casts Negative LPF (Negative); Crystals Negative HPF (Negative); Epithelial Cells Negative HPF (Negative); Mucus Negative (Negative); WBC Negative HPF (0-5)
[2024-07-16] MEDS: VANCOMYCIN/WATER (PEG) 2 GM/400 ML BAG IVPB (16:22)
[2024-07-16] MEDS: Normal Saline 500 ML 1000 ML IV (16:29)
--- NOTE | 2024-07-16 16:57 | W.PM.HP.N ---
Date of service: 07/16/24 Time of Service: 16:58 Assessment and Plan Assessment and plan (1) Encephalopathy acute: Status: Acute Assessment and plan: Teleneurology note reviewed. No focal findings on CTA or MRI to explain presenation I think hepatic encephalopathy is by far the most likely cause given his cirrhosis with h/o TIPS and high ammonia. Exam is difficult however with agitation requiring sedation He could have overused his opioids, but could have simply been triggered by routine opioid pain medication and stress of his surgery. I appreciate Dr. Marcos attempting paracentesis, not a large enough pocket to get fluid to rule out SBP, though I think this is unlikely. However, will continue ceftriaxone until MS improves No other signs of infection on exam/imaging/labs Will treat with lactulose, start with IN as he is sedated. started precedex for control of agitation, can use prn benzo as a back up but I would like to see if he improving off benzodiazepines ICU for close monitoring given mental status. (2) Cirrhosis: Status: Chronic Assessment and plan: overall his cirrhosis has not decompensated, though he is still at risk of encephalopathy Continue to monitor, get INR (3) Hypertension: Status: Resolved Assessment and plan: BP high but in setting of agitation, monitor (4) Alcohol use disorder in remission: Assessment and plan: stable in remission levels negative. give IV thiamine just in case, levels wouldn't come back quickly (5) Anemia: Assessment and plan: mild, follow (6) Bimalleolar fracture of left ankle: Status: Acute Assessment and plan: no apparent complications to surgery. Continue wound care. (7) DVT prophylaxis: Status: Resolved Assessment and plan: enoxaparin History of Present Illness History of Present Illness Chief Complaint: confusion Narrative: 69 yo with cirrhosis and ascites s/p TIPS with history of encephalopathy who was brought the the emergency room by EMS after he was found confused in his home where he lives alone. Girlfriend states he was last acting normal Tuesday night. She did see him briefly Tuesday morning and he seemed to be moving a little slower but otherwise appeared normal. There was concern per EMS that he wasn't moving his right side normally, but that is the side of his recent surgery and there was no assymetry noted in the emergency room on neurologic assessment limited by mental status. He had an ankle fracture 2 weeks ago and underwent repair at [facility] 5 days ago. He as taking opioid pain medication, but due to his history of alcohol use disorder he had a friend dispense his pain medications. She is sure he hasn't been drinking, overusing his pain medication, or using other drugs. She had not noticed signs of infection such as cough, cold symptoms, bowel or urine changes, or pain other than that ankle. He does have a history of hepatic encephalopathy, but not recently, does not take lactulose regularly. Review of Systems Unobtainable due to mental status [facility] All Active Problems (Updated 07/16/24 @ 17:55 by Torres Enrique) Acute encephalopathy (Acute) Hyperammonemia (Acute) Closed fracture of left distal fibula (Acute) Bimalleolar fracture of left ankle (Acute ~06/28/24) Numbness of right hand (Acute) Peripheral neuropathy (Acute) Encephalopathy acute (Acute) Right carpal tunnel syndrome (Acute) Duodenitis (Acute) Liver mass, left lobe (Acute) 2.6 cm bx at [facility] on 02/06 Cholelithiasis (Acute) Gastritis (Acute) Esophageal reflux (Chronic) Left rotator cuff tear (Acute) Gallstones (Chronic) Cirrhosis (Chronic) Medical History (Updated 07/16/24 @ 17:55 by Torres Enrique) Alcohol use disorder in remission Esophagitis Hx of non-insulin dependent diabetes mellitus Hx of pneumothorax History of rib fracture Hx of fracture of clavicle Scoliosis Duodenal ulcer disease Melena Nausea & vomiting Hx of caloric malnutrition Anemia Left inguinal hernia Drug abuse Hepatic encephalopathy Pancytopenia Red blood cell antibody positive with compatible PRBC difficult to obtain History of GI bleed variceal Hepatitis C Fully treated Esophageal varices Surgical History Hx of basal cell carcinoma excision Hx of Achilles tendon repair History of esophagogastroduodenoscopy (EGD) (~01/16/20) multiple Previous back surgery Sanchez siva placement 1972 and then removal 1980 S/P hernia repair S/P shoulder surgery S/P TIPS (transjugular intrahepatic portosystemic shunt) Has ultrasound done every 6 months last done 09/2023 Family History Mother Breast cancer Sister Breast cancer Heart disease Diabetes Sister Breast cancer Hypertension Brother Cancer leukemia Brother Heart disease Diabetes Hypertension Maternal Grandmother Heart disease Father Diabetes Hypertension Social History Smoking/Tobacco Use Status: Never Smoking risk assessment performed?: Yes Alcohol Intake: former Year quit: 2019 Drug use: Current Sobriety Substance use type: does not use and former substance user Details: 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 Current gender identity: male What is your relationship status?: Panel score (0-1 are the most socially isolated patients): 0 Do you feel safe at home: Yes Additional Social history: lives alone Meds Allergies and Home Medications Allergies Allergy/AdvReac Type Severity Reaction Status Date / Time oxycodone (From OxyContin) AdvReac Intermediate Other (See Verified 07/04/24 14:44 Comment) zolpidem (From Ambien) AdvReac Other (See Verified 07/04/24 14:44 Comment) Home Medications ?Medication ?Instructions ?Recorded ?Confirmed ?Type [id number] acid 0.4 1 tab PO DAILY 11/16/19 07/16/24 History mg-lycopene 300 mcg-lutein 250 mcg tablet (Centrum Silver) atorvastatin 20 mg tablet 20 mg PO DAILY 08/19/23 07/16/24 History bimatoprost 0.01 % eye drops 1 drp ophthalmic (eye) DAILY 08/19/23 07/16/24 History (Lumigan) lisinopril 10 mg tablet 10 mg PO DAILY 08/19/23 07/16/24 History canagliflozin 100 mg tablet 100 mg PO DAILY 01/31/24 07/16/24 History (Invokana) pantoprazole 40 mg tablet,delayed 40 mg PO DAILY #0 tabs 01/31/24 07/16/24 Rx release sildenafil 100 mg tablet 100 mg PO PRN PRN 06/28/24 07/16/24 History cholecalciferol (vitamin D3) 25 25 mcg PO DAILY 07/16/24 07/16/24 History mcg (1,000 unit) capsule (Vitamin D3) latanoprost 0.005 % eye drops 1 drp ophthalmic (eye) QPM 07/16/24 07/16/24 History mecobalamin (vitamin B12) 500 mcg 500 mcg PO DAILY 07/16/24 07/16/24 History chewable tablet milk thistle seed extract 200 mg 200 mg PO DAILY 07/16/24 07/16/24 History capsule turmeric root extract 300 mg 300 mg PO DAILY 07/16/24 07/16/24 History capsule (Curica Turmeric) zinc glycinate 7.5 mg chewable 7.5 mg PO DAILY 07/16/24 07/16/24 History tablet Exam Narrative Exam Narrative: Patient examined after given midazolam for agitation, he was sedated. GEN: Sedated, sleeping/snoring. Not able to cooperate with exam. No acute distress at rest. HEENT: Head atraumatic. Conjunctiva clear, no icterus. PEERL. no rhinorrhea. TMs clear, no bleeding/otorrhea. MMM, OP benign. Neck is supple with no masses or lymphadenopathy, trachea midline LUNGS: CTAB with normal effort CV: RRR with no murmurs, gallops, or rubs. ABD: active bowel sounds, soft, shifting dullness and fluid wave noted, not tensely distended. No masses. Does not react to deep palpation. EXT: no cyanosis, clubbing, or edema MSK: No joint redness or swelling. right ankle in brace/bandage (taken down by ED doc and no signs of infection. NEURO: He is moving all 4 extremities, no asymmetry noted. Sedated. DTRs symmetric patella and biceps bilaterally. No tremor SKIN: No rashes or open wounds. PSYCH: sedated. Per report was confused and agitated on presentation. Results Imaging Chest x-ray: report reviewed (No acute findings.) and image reviewed EKG: report reviewed and image reviewed (NSR, nl axis, intervals. No ST-T changes. ) Imaging Studies: MRI brain: 1. No evidence of an acute infarct. 2. Age-appropriate cerebral atrophy. Areas of hyperintensity in the white matter on the FLAIR and T2 weighted images without mass effect likely reflecting chronic microvascular ischemic changes. 3. Black area is seen in the gradient images in the white matter. Differential considerations include cerebral amyloid disease, vascular malformations, trauma, old microhemorrhages. CTA Head/Neck: 1. CTA brain: Normal CTA examination of the [place]. 2. Head CT: No evidence of acute infarct or hemorrhage. Atrophy and white matter changes of small vessel disease. 3. CTA neck: Foci of calcific plaque at both common carotid bulbs without significant stenosis. XR clavicle R. Proximal clavicle fracture appears unchanged. The alignment of the clavicle appears unchanged. Proximal fragment is not well seen. Distal resection of the clavicle is again noted. There are degenerative changes of the glenohumeral joint. XR ankle R: Status post ORIF with anatomic alignment. No new abnormalities. Labs 07/16/24 12:39 07/16/24 12:39 Labs: Laboratory Results - last 24 hr 07/16/24 07/16/24 07/16/24 12:39 13:39 14:59 WBC 3.30 L RBC 3.51 L Hgb 11.9 L Hct 32.7 L MCV 93 MCH 33.9 H MCHC 36.4 H RDW 13.5 Plt Count 147 MPV 8.2 Immature Gran % 0.0 Neutrophils % 69.1 Lymphocytes % 10.9 Monocytes % 12.1 Eosinophils % 7.0 Basophils % 0.9 Nucleated RBC % 0.0 Absolute Neutrophils 2.28 Absolute Lymphocytes 0.36 L Absolute Monocytes 0.40 Absolute Eosinophils 0.23 Absolute Basophils 0.03 VBG Lactate 1.9 Sodium 142 Potassium 4.1 Chloride 108 H Carbon Dioxide 23.6 Anion Gap 10.4 BUN 17 Creatinine 0.9 Est GFR (CKD-EPI 2020) 91.31 Glucose 147 H Calcium 9.7 Magnesium 1.8 Total Bilirubin 1.8 H AST 33 ALT 24 Alkaline Phosphatase 148 H Ammonia 75 H Troponin I 12 15 Total Protein 7.0 Albumin 3.5 TSH 0.67 Urine Color Urine Clarity Urine pH Ur Specific [place] Urine Protein Urine Ketones Urine Blood Urine Nitrite Urine Bilirubin Urine Urobilinogen Ur Leukocyte Esterase Urine RBC Urine WBC Ur Epithelial Cells Urine Crystals Urine Bacteria Urine Casts Urine Mucus Ur Culture Indicated? Urine Glucose Salicylates < 2.8 Urine Opiates Screen Urine Methadone Screen Acetaminophen < 2 Ur Barbiturates Screen Ur Tricyclics Screen Ur Amphetamines Screen U Benzodiazepines Scrn Urine Cocaine Screen Ur THC Screen Ethyl Alcohol < 3.0 07/16/24 07/16/24 15:14 15:15 WBC RBC Hgb Hct MCV MCH MCHC RDW Plt Count MPV Immature Gran % Neutrophils % Lymphocytes % Monocytes % Eosinophils % Basophils % Nucleated RBC % Absolute Neutrophils Absolute Lymphocytes Absolute Monocytes Absolute Eosinophils Absolute Basophils VBG Lactate Sodium Potassium Chloride Carbon Dioxide Anion Gap BUN Creatinine Est GFR (CKD-EPI 2020) Glucose Calcium Magnesium Total Bilirubin AST ALT Alkaline Phosphatase Ammonia Troponin I Cancelled Total Protein Albumin TSH Urine Color Yellow Urine Clarity Clear Urine pH 6.0 Ur Specific [place] 1.010 Urine Protein Trace Urine Ketones 15 H Urine Blood Small H Urine Nitrite Negative Urine Bilirubin Negative Urine Urobilinogen 1.0 H Ur Leukocyte Esterase Negative Urine RBC 5-10 H Urine WBC Negative Ur Epithelial Cells Negative Urine Crystals Negative Urine Bacteria Negative Urine Casts Negative Urine Mucus Negative Ur Culture Indicated? No Urine Glucose Negative Salicylates Urine Opiates Screen Positive A Urine Methadone Screen Negative Acetaminophen Ur Barbiturates Screen Negative Ur Tricyclics Screen Negative Ur Amphetamines Screen Negative U Benzodiazepines Scrn Negative Urine Cocaine Screen Negative Ur THC Screen Negative Ethyl Alcohol Last Vital Signs Temp 36.8 C 07/16/24 12:28 Pulse 86 07/16/24 13:46 Resp 13 07/16/24 13:46 BP 189/78 H 07/16/24 13:46 Pulse Ox 97 07/16/24 13:46 Time Spent Time spent with Patient: >75 minutes Time was spent: preparing to see the patient(eg.review tests), obtaining and/or reviewing separately otained hiistory, ordering medications,tests, procedures, referring, communicating with other health care administrative tech, indepentently interpreting results, counseling the patient and care coordination
[2024-07-16] MEDS: dexmedeTOMidine IN 0.9 % NACL 400 MCG/100 ML BTL 8.66 MCG IV (17:08)
--- NOTE | 2024-07-16 18:47 | SCONE_ITS ---
Date of service: 07/16/24 Time of Service: 18:47 Assessment and Plan Assessment and plan (1) SBP (spontaneous bacterial peritonitis): Status: Acute Assessment and plan: 69 yo man with hx of cirrhosis and TIPS who is acutely ill / encephalopathic. Abdominal exam is not consistent with ascites let alone peritonitis. Recent abdominal imaging shows no ascites on two separate modalities. Without ascites, the liklihood of SBP is virtually nonexistent. Recommendation: No paracentesis indicated History of Present Illness Narrative: Asked to consult for paracentesis in patient with hx of cirrhosis and TIPS. ED provider abdominal exam finds no distention and soft. Patient has abdominal imaging in last 6 months: CT scan - no ascites. MRI - no ascites PFSH All Active Problems (Updated 07/16/24 @ 18:53 by Man Cabrales MD) SBP (spontaneous bacterial peritonitis) (Acute) Acute encephalopathy (Acute) Hyperammonemia (Acute) Closed fracture of left distal fibula (Acute) Bimalleolar fracture of left ankle (Acute ~06/28/24) Numbness of right hand (Acute) Peripheral neuropathy (Acute) Encephalopathy acute (Acute) Right carpal tunnel syndrome (Acute) Duodenitis (Acute) Liver mass, left lobe (Acute) 2.6 cm bx at [facility] on 02/06 Cholelithiasis (Acute) Gastritis (Acute) Esophageal reflux (Chronic) Left rotator cuff tear (Acute) Gallstones (Chronic) Cirrhosis (Chronic) Medical History (Updated 07/16/24 @ 18:53 by Man Cabrales MD) Alcohol use disorder in remission Esophagitis Duodenal ulcer disease Esophageal varices Melena Nausea & vomiting Hx of caloric malnutrition Anemia Drug abuse Left inguinal hernia Hepatitis C Fully treated Hx of non-insulin dependent diabetes mellitus Hx of pneumothorax History of rib fracture Hx of fracture of clavicle Scoliosis Hepatic encephalopathy Pancytopenia Red blood cell antibody positive with compatible PRBC difficult to obtain History of GI bleed variceal Surgical History S/P TIPS (transjugular intrahepatic portosystemic shunt) Has ultrasound done every 6 months last done 09/2023 Hx of basal cell carcinoma excision Hx of Achilles tendon repair History of esophagogastroduodenoscopy (EGD) (~01/16/20) multiple Previous back surgery Sanchez siva placement 1972 and then removal 1980 S/P hernia repair S/P shoulder surgery Family History Mother Breast cancer Sister Breast cancer Heart disease Diabetes Sister Breast cancer Hypertension Brother Cancer leukemia Brother Heart disease Diabetes Hypertension Maternal Grandmother Heart disease Father Diabetes Hypertension Social History Smoking/Tobacco Use Status: Never Smoking risk assessment performed?: Yes Alcohol Intake: former Year quit: 2019 Drug use: Current Sobriety Substance use type: does not use and former substance user Details: 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 Current gender identity: male What is your relationship status?: Panel score (0-1 are the most socially isolated patients): 0 Do you feel safe at home: Yes Additional Social history: lives alone Results Last Vital Signs Temp 98.3 F 07/16/24 12:28 Pulse 81 07/16/24 18:01 Resp 21 07/16/24 18:01 BP 171/68 H 07/16/24 18:01 Pulse Ox 85 L 07/16/24 18:01 Labs 07/16/24 12:39 07/16/24 12:39 Labs: Laboratory Results - last 24 hr 07/16/24 07/16/24 07/16/24 12:39 13:39 14:59 WBC 3.30 L RBC 3.51 L Hgb 11.9 L Hct 32.7 L MCV 93 MCH 33.9 H MCHC 36.4 H RDW 13.5 Plt Count 147 MPV 8.2 Immature Gran % 0.0 Neutrophils % 69.1 Lymphocytes % 10.9 Monocytes % 12.1 Eosinophils % 7.0 Basophils % 0.9 Nucleated RBC % 0.0 Absolute Neutrophils 2.28 Absolute Lymphocytes 0.36 L Absolute Monocytes 0.40 Absolute Eosinophils 0.23 Absolute Basophils 0.03 VBG Lactate 1.9 Sodium 142 Potassium 4.1 Chloride 108 H Carbon Dioxide 23.6 Anion Gap 10.4 BUN 17 Creatinine 0.9 Est GFR (CKD-EPI 2020) 91.31 Glucose 147 H Calcium 9.7 Magnesium 1.8 Total Bilirubin 1.8 H AST 33 ALT 24 Alkaline Phosphatase 148 H Ammonia 75 H Troponin I 12 15 Total Protein 7.0 Albumin 3.5 TSH 0.67 Urine Color Urine Clarity Urine pH Ur Specific [place] Urine Protein Urine Ketones Urine Blood Urine Nitrite Urine Bilirubin Urine Urobilinogen Ur Leukocyte Esterase Urine RBC Urine WBC Ur Epithelial Cells Urine Crystals Urine Bacteria Urine Casts Urine Mucus Ur Culture Indicated? Urine Glucose Salicylates < 2.8 Urine Opiates Screen Urine Methadone Screen Acetaminophen < 2 Ur Barbiturates Screen Ur Tricyclics Screen Ur Amphetamines Screen U Benzodiazepines Scrn Urine Cocaine Screen Ur THC Screen Ethyl Alcohol < 3.0 07/16/24 07/16/24 15:14 15:15 WBC RBC Hgb Hct MCV MCH MCHC RDW Plt Count MPV Immature Gran % Neutrophils % Lymphocytes % Monocytes % Eosinophils % Basophils % Nucleated RBC % Absolute Neutrophils Absolute Lymphocytes Absolute Monocytes Absolute Eosinophils Absolute Basophils VBG Lactate Sodium Potassium Chloride Carbon Dioxide Anion Gap BUN Creatinine Est GFR (CKD-EPI 2020) Glucose Calcium Magnesium Total Bilirubin AST ALT Alkaline Phosphatase Ammonia Troponin I Cancelled Total Protein Albumin TSH Urine Color Yellow Urine Clarity Clear Urine pH 6.0 Ur Specific [place] 1.010 Urine Protein Trace Urine Ketones 15 H Urine Blood Small H Urine Nitrite Negative Urine Bilirubin Negative Urine Urobilinogen 1.0 H Ur Leukocyte Esterase Negative Urine RBC 5-10 H Urine WBC Negative Ur Epithelial Cells Negative Urine Crystals Negative Urine Bacteria Negative Urine Casts Negative Urine Mucus Negative Ur Culture Indicated? No Urine Glucose Negative Salicylates Urine Opiates Screen Positive A Urine Methadone Screen Negative Acetaminophen Ur Barbiturates Screen Negative Ur Tricyclics Screen Negative Ur Amphetamines Screen Negative U Benzodiazepines Scrn Negative Urine Cocaine Screen Negative Ur THC Screen Negative Ethyl Alcohol
[2024-07-16] MEDS: Lactulose 20 GM/30 ML CUP 30 GM PR (20:07)
[2024-07-16] MEDS: Pantoprazole 40 MG VIAL IVP (20:07)
[2024-07-16] MEDS: Normal Saline Flush 10 ML SYR (20:07)
[2024-07-16] MEDS: THIAMINE 500 MG in Normal Saline 100 ML 200 MG IVPB (20:07)
[2024-07-16] MEDS: Enoxaparin 40 MG/0.4 ML SYR SC (20:08)
--- NOTE | 2024-07-16 21:39 | W.PC.ACHO ---
Registration Status: Primary Language: Preferred Language: ED Information & Data Chief Complaint CVA/TIA 07/16/24 12:33 Chief Complaint CVA/TIA 07/16/24 12:28 Triage Note last seen normal on tuesday07/16/24 12:28 . today pt unable to answer questions, axo to self only, unable to verbalized needs. Right facial droop, right arm drift/weakness. had LLE surg 5 days ago. Medical / Surgical History (Last Updated 07/16/24 @ 17:55 by Torres Enrique) Alcohol use disorder in remission Esophagitis Duodenal ulcer disease Esophageal varices Melena Nausea & vomiting Hx of caloric malnutrition Anemia Drug abuse Left inguinal hernia Hepatitis C Hx of non-insulin dependent diabetes mellitus Hx of pneumothorax History of rib fracture Hx of fracture of clavicle Scoliosis Hepatic encephalopathy Pancytopenia Red blood cell antibody positive with compatible PRBC difficult to obtain History of GI bleed (Last Reviewed 07/16/24 @ 17:39 by Torres Enrique) S/P TIPS (transjugular intrahepatic portosystemic shunt) Hx of basal cell carcinoma excision Hx of Achilles tendon repair History of esophagogastroduodenoscopy (EGD) (~01/16/20) Previous back surgery S/P hernia repair S/P shoulder surgery Most Recent Vital Signs Temperature 36.6 C 07/16/24 18:44 Temperature Source Temporal Artery Scan 07/16/24 18:44 Pulse 53 L 07/16/24 20:50 Pulse 53 L 07/16/24 20:50 Respiratory Rate 21 07/16/24 20:50 Respiratory Effort Normal 07/16/24 18:44 Respiratory Depth Normal 07/16/24 18:44 Respiratory Pattern Tachypnea 07/16/24 18:44 Blood Pressure 164/71 H 07/16/24 20:31 Blood Pressure Mean 95 07/16/24 20:31 Blood Pressure Position Supine 07/16/24 18:44 Pulse Oximetry 96 07/16/24 20:50 Oxygen Delivery Method Nasal Cannula 07/16/24 19:15 Oxygen Flow Rate 1 07/16/24 19:15 Allergies oxycodone (From OxyContin) Adverse Reaction (Intermediate, Verified 07/04/24 14:44) Other (See Comment) confusion zolpidem (From Ambien) Adverse Reaction (Verified 07/04/24 14:44) Other (See Comment) sleep driving Precautions Isolation Standard precaution 07/16/24 12:33 Active Medications Generic Name Dose Route Start Last Admin Trade Name Josi PRN Reason Stop Dose Admin Enoxaparin Sodium 40 mg 07/16/24 20:00 07/16/24 20:08 Enoxaparin 40 Mg/0.4 Ml Syr SC 40 mg Q24H ARSENIO Administration Dexmedetomidine/Sodium Chloride 400 mcg in 100 mls @ 8.66 mls/hr 07/16/24 16:45 07/16/24 17:26 Precedex IV 0.6 mcg/kg/hr INFUSION ARSENIO 12.99 mls/hr Titration Protocol 0.4 MCG/KG/HR Thiamine HCl 500 mg/ Sodium 105 mls @ 200 mls/hr 07/16/24 18:00 07/16/24 20:54 Chloride IVPB 07/19/24 10:32 Infused Q8H ARSENIO Infusion Iohexol 100 ml 07/16/24 12:30 07/16/24 12:24 Omnipaque 350 Mg/Ml 100 Ml Btl IJ 08/15/24 23:59 70 ml DIRECTED ARSENIO Administration Lactulose 30 gm 07/16/24 18:00 07/16/24 20:07 Lactulose 20 Gm/30 Ml Cup WI 30 gm Q6H ARSENIO Administration Sodium Chloride 50 ml 07/16/24 12:45 07/16/24 12:31 Normal Saline - Diluent 50 Ml Vial IJ 50 ml .FOR DI USE ARSENIO Administration IV IV Catheter Type [] Saline Lock IV Catheter Type [Right Peripheral IV Antecubital] IV Catheter Gauge [Right 18 Antecubital] Diet Orders Category Date Time Status Nothing Per Oral [DIET] Nutrition 07/16/24 Dinner Active Diagnostics 07/16/24 07/16/24 07/16/24 Range/Units Unknown 17:43 15:15 WBC (4.4-10.8) 10^3/uL RBC (4.36-5.78) 10^6/uL Hgb (13.5-17.5) g/dL Hct (40.0-50.0) % MCV (80-95) fL MCH (27.0-33.0) pg MCHC (32.0-36.0) % RDW (11.8-14.1) % Plt Count (130-400) 10^3/uL MPV (8.0-11.0) fL Immature Gran % % Neutrophils % % Lymphocytes % % Monocytes % % Eosinophils % % Basophils % % Nucleated RBC % (0.0-0.3) % Absolute Neutrophils (1.2-6.7) 10^3/uL Absolute Lymphocytes (1.2-3.4) 10^3/uL Absolute Monocytes (0.1-0.8) 10^3/uL Absolute Eosinophils (0.0-0.7) 10^3/uL Absolute Basophils (0.0-0.2) 10^3/uL VBG Lactate (<or=2.0) mmol/L Sodium (136-145) mmol/L Potassium (3.5-5.1) mmol/L Chloride (98-107) mmol/L Carbon Dioxide (21.0-32.0) mmol/L Anion Gap (3-11) mmol/L BUN (7-18) mg/dL Creatinine (0.70-1.30) mg/dL Est GFR (CKD-EPI 2020) (mL/min/1.73m2) Glucose (74-106) mg/dL Calcium (8.5-10.1) mg/dL Magnesium mg/dL Total Bilirubin (0.2-1.0) mg/dL AST (15-37) U/L ALT (16-63) U/L Alkaline Phosphatase (46-116) U/L Ammonia (11-32) umol/L Troponin I (<or=76) ng/L Total Protein (6.4-8.2) g/dL Albumin (3.4-5.0) g/dL TSH (0.36-3.74) uIU/mL Urine Color Yellow (Yellow) Urine Clarity Clear (Clear) Urine pH 6.0 (5-8) Ur Specific [place] 1.010 (1.005-1.025) Urine Protein Trace (Neg-Trace) mg/dL Urine Ketones 15 H (Negative) mg/dL Urine Blood Small H (Negative) Urine Nitrite Negative (Negative) Urine Bilirubin Negative (Negative) Urine Urobilinogen 1.0 H (Up to 0.2) mg/dL Ur Leukocyte Esterase Negative (Negative) Urine RBC 5-10 H (0-2) HPF Urine WBC Negative (0-5) HPF Ur Epithelial Cells Negative (Negative) HPF Urine Crystals Negative (Negative) HPF Urine Bacteria Negative (Negative) HPF Urine Casts Negative (Negative) LPF Urine Mucus Negative (Negative) Ur Culture Indicated? No Urine Glucose Negative (Negative) mg/dL Fluid Type Pending Fluid Glucose Pending Fluid Total Protein Pending Fluid LDH Pending Salicylates (<2.8) mg/dL Urine Opiates Screen Positive A (Negative) Urine Methadone Screen Negative (Negative) Acetaminophen (10-30) ug/mL Ur Barbiturates Screen Negative (Negative) Ur Tricyclics Screen Negative (Negative) Ur Amphetamines Screen Negative (Negative) U Benzodiazepines Scrn Negative (Negative) Urine Cocaine Screen Negative (Negative) Ur THC Screen Negative (Negative) Ethyl Alcohol (<10) mg/dL 07/16/24 07/16/24 07/16/24 Range/Units 15:14 14:59 13:39 WBC (4.4-10.8) 10^3/uL RBC (4.36-5.78) 10^6/uL Hgb (13.5-17.5) g/dL Hct (40.0-50.0) % MCV (80-95) fL MCH (27.0-33.0) pg MCHC (32.0-36.0) % RDW (11.8-14.1) % Plt Count (130-400) 10^3/uL MPV (8.0-11.0) fL Immature Gran % % Neutrophils % % Lymphocytes % % Monocytes % % Eosinophils % % Basophils % % Nucleated RBC % (0.0-0.3) % Absolute Neutrophils (1.2-6.7) 10^3/uL Absolute Lymphocytes (1.2-3.4) 10^3/uL Absolute Monocytes (0.1-0.8) 10^3/uL Absolute Eosinophils (0.0-0.7) 10^3/uL Absolute Basophils (0.0-0.2) 10^3/uL VBG Lactate 1.9 (<or=2.0) mmol/L Sodium (136-145) mmol/L Potassium (3.5-5.1) mmol/L Chloride (98-107) mmol/L Carbon Dioxide (21.0-32.0) mmol/L Anion Gap (3-11) mmol/L BUN (7-18) mg/dL Creatinine (0.70-1.30) mg/dL Est GFR (CKD-EPI 2020) (mL/min/1.73m2) Glucose (74-106) mg/dL Calcium (8.5-10.1) mg/dL Magnesium mg/dL Total Bilirubin (0.2-1.0) mg/dL AST (15-37) U/L ALT (16-63) U/L Alkaline Phosphatase (46-116) U/L Ammonia (11-32) umol/L Troponin I Cancelled 15 (<or=76) ng/L Total Protein (6.4-8.2) g/dL Albumin (3.4-5.0) g/dL TSH (0.36-3.74) uIU/mL Urine Color (Yellow) Urine Clarity (Clear) Urine pH (5-8) Ur Specific [place] (1.005-1.025) Urine Protein (Neg-Trace) mg/dL Urine Ketones (Negative) mg/dL Urine Blood (Negative) Urine Nitrite (Negative) Urine Bilirubin (Negative) Urine Urobilinogen (Up to 0.2) mg/dL Ur Leukocyte Esterase (Negative) Urine RBC (0-2) HPF Urine WBC (0-5) HPF Ur Epithelial Cells (Negative) HPF Urine Crystals (Negative) HPF Urine Bacteria (Negative) HPF Urine Casts (Negative) LPF Urine Mucus (Negative) Ur Culture Indicated? Urine Glucose (Negative) mg/dL Fluid Type Fluid Glucose Fluid Total Protein Fluid LDH Salicylates (<2.8) mg/dL Urine Opiates Screen (Negative) Urine Methadone Screen (Negative) Acetaminophen (10-30) ug/mL Ur Barbiturates Screen (Negative) Ur Tricyclics Screen (Negative) Ur Amphetamines Screen (Negative) U Benzodiazepines Scrn (Negative) Urine Cocaine Screen (Negative) Ur THC Screen (Negative) Ethyl Alcohol (<10) mg/dL 07/16/24 Range/Units 12:39 WBC 3.30 L (4.4-10.8) 10^3/uL RBC 3.51 L (4.36-5.78) 10^6/uL Hgb 11.9 L (13.5-17.5) g/dL Hct 32.7 L (40.0-50.0) % MCV 93 (80-95) fL MCH 33.9 H (27.0-33.0) pg MCHC 36.4 H (32.0-36.0) % RDW 13.5 (11.8-14.1) % Plt Count 147 (130-400) 10^3/uL MPV 8.2 (8.0-11.0) fL Immature Gran % 0.0 % Neutrophils % 69.1 % Lymphocytes % 10.9 % Monocytes % 12.1 % Eosinophils % 7.0 % Basophils % 0.9 % Nucleated RBC % 0.0 (0.0-0.3) % Absolute Neutrophils 2.28 (1.2-6.7) 10^3/uL Absolute Lymphocytes 0.36 L (1.2-3.4) 10^3/uL Absolute Monocytes 0.40 (0.1-0.8) 10^3/uL Absolute Eosinophils 0.23 (0.0-0.7) 10^3/uL Absolute Basophils 0.03 (0.0-0.2) 10^3/uL VBG Lactate (<or=2.0) mmol/L Sodium 142 (136-145) mmol/L Potassium 4.1 (3.5-5.1) mmol/L Chloride 108 H (98-107) mmol/L Carbon Dioxide 23.6 (21.0-32.0) mmol/L Anion Gap 10.4 (3-11) mmol/L BUN 17 (7-18) mg/dL Creatinine 0.9 (0.70-1.30) mg/dL Est GFR (CKD-EPI 2020) 91.31 (mL/min/1.73m2) Glucose 147 H (74-106) mg/dL Calcium 9.7 (8.5-10.1) mg/dL Magnesium 1.8 mg/dL Total Bilirubin 1.8 H (0.2-1.0) mg/dL AST 33 (15-37) U/L ALT 24 (16-63) U/L Alkaline Phosphatase 148 H (46-116) U/L Ammonia 75 H (11-32) umol/L Troponin I 12 (<or=76) ng/L Total Protein 7.0 (6.4-8.2) g/dL Albumin 3.5 (3.4-5.0) g/dL TSH 0.67 (0.36-3.74) uIU/mL Urine Color (Yellow) Urine Clarity (Clear) Urine pH (5-8) Ur Specific [place] (1.005-1.025) Urine Protein (Neg-Trace) mg/dL Urine Ketones (Negative) mg/dL Urine Blood (Negative) Urine Nitrite (Negative) Urine Bilirubin (Negative) Urine Urobilinogen (Up to 0.2) mg/dL Ur Leukocyte Esterase (Negative) Urine RBC (0-2) HPF Urine WBC (0-5) HPF Ur Epithelial Cells (Negative) HPF Urine Crystals (Negative) HPF Urine Bacteria (Negative) HPF Urine Casts (Negative) LPF Urine Mucus (Negative) Ur Culture Indicated? Urine Glucose (Negative) mg/dL Fluid Type Fluid Glucose Fluid Total Protein Fluid LDH Salicylates < 2.8 (<2.8) mg/dL Urine Opiates Screen (Negative) Urine Methadone Screen (Negative) Acetaminophen < 2 (10-30) ug/mL Ur Barbiturates Screen (Negative) Ur Tricyclics Screen (Negative) Ur Amphetamines Screen (Negative) U Benzodiazepines Scrn (Negative) Urine Cocaine Screen (Negative) Ur THC Screen (Negative) Ethyl Alcohol < 3.0 (<10) mg/dL 07/16/24 17:41 Body Fluid Culture - Pending Peritoneal Gram Stain - Pending 07/16/24 14:05 Blood Culture - Pending Blood 07/16/24 12:39 Blood Culture - Pending Blood [id number] Documentation Fingerstick Glucose Start: 07/16/24 12:10 Freq: Status: Complete Protocol: Activity Type Activity Date Activity User E-sign Co-sign Detail Recorded Client Recorded Date Recorded By Document 07/16/24 12:09 PARAMJIT DAKATIE(7) [id number] 07/16/24 12:10 PARAMJIT DAMARYON(8) Intake and Output - 24 Hour Total 07/16/24 12:00 thru 07/16/24 21:07 Intake Total 1077.598 Output Total 750 Balance 327.598 Weight 82.9 kg Intake: IV 1077.598 Output: Urine 750 Other: Urine Color Bee Urine Appearance Clear Falls Risk Assessment History of Falls No History 07/16/24 12:33 Contributing Factors Confusion,Impairments, 07/16/24 18:44 Incontinence,Medications Tubes/Lines W/no contributing factors 07/16/24 18:44 Fall Total Score 22 07/16/24 18:44 Level of Risk Standard/Low Risk 07/16/24 18:44 Problems (Last Updated 07/16/24 @ 17:55 by Torres Enrique) SBP (spontaneous bacterial peritonitis) (Acute) Acute encephalopathy (Acute) Hyperammonemia (Acute) Bimalleolar fracture of left ankle (Acute ~06/28/24) Encephalopathy acute (Acute) Cirrhosis (Chronic) v v v v v v v v v Sending and/or Receiving Nurses: Please use comment section below to note any information pertinent to the patient hand-off not included above. Information / Comments: Report received from: José Miguel Michaud RN took report from ED RN
[2024-07-16] MEDS: dexmedeTOMidine IN 0.9 % NACL 400 MCG/100 ML BTL 12.99 MCG IV (23:28)
[2024-07-17] VITALS (118 sets, daily range): BP systolic 100–176; BP diastolic 44–67; PULSE 37–60; RESP 9–51; TEMP 36.4–36.6; O2SAT 94–99
[2024-07-17] MEDS: Lactulose 20 GM/30 ML CUP 30 GM PR ×2 (02:28→14:18)
[2024-07-17] MEDS: THIAMINE 500 MG in Normal Saline 100 ML 200 MG IVPB ×2 (04:39→11:46)
[2024-07-17 06:12] LABS: Absolute Basophil Count 0.03 10^3/uL (0.0-0.2); Absolute Eosinophil Count 0.25 10^3/uL (0.0-0.7); Absolute Lymphocyte Count 0.46 10^3/uL (1.2-3.4); Absolute Monocyte Count 0.39 10^3/uL (0.1-0.8); Absolute Neutrophil Count 1.66 10^3/uL (1.2-6.7); Basophils % 1.1 %; HCT 32.3 % (40.0-50.0); HGB 11.8 g/dL (13.5-17.5); Lymphocytes % 16.5 %; MCH 33.9 pg (27.0-33.0); MCHC 36.5 % (32.0-36.0); MCV 93 fL (80-95); MPV 8.6 fL (8.0-11.0); Neutrophils % 59.4 %; Platelet Count 123 10^3/uL (130-400); RBC 3.48 10^6/uL (4.36-5.78); RDW 12.9 % (11.8-14.1); RDW-SD 43.4 fL; WBC 2.79 10^3/uL (4.4-10.8)
[2024-07-17 06:26] LABS: INR 1.2 (0.9-1.1); Prothrombin Time 11.8 sec (9.1-11.1)
[2024-07-17 06:42] LABS: ALT 23 U/L (16-63); AST 29 U/L (15-37); Albumin 2.8 g/dL (3.4-5.0); Alkaline Phosphatase 136 U/L (46-116); Anion Gap 11.8 mmol/L (3-11); BUN 16 mg/dL (7-18); Bilirubin, Total 1.7 mg/dL (0.2-1.0); CO2 23.2 mmol/L (21.0-32.0); CREATININE 0.7 mg/dL (0.70-1.30); Calcium 9.1 mg/dL (8.5-10.1); Chloride 112 mmol/L (98-107); Estimated GFR 98.51 (mL/min/1.73m2); Glucose 181 mg/dL (74-106); Potassium 4.1 mmol/L (3.5-5.1); Sodium 147 mmol/L (136-145); Total Protein 6.3 g/dL (6.4-8.2)
[2024-07-17 07:10] LABS: Vitamin B12 1185 pg/mL (193-986)
[2024-07-17 07:32] LABS: Hemoglobin A1C 6.1 % (<5.7)
[2024-07-17] MEDS: Pantoprazole 40 MG VIAL IVP (08:48)
[2024-07-17] MEDS: Normal Saline Flush 10 ML SYR IVP ×2 (08:49→23:25)
--- NOTE | 2024-07-17 09:15 | INITIAL_ITS ---
Date of service: 07/17/24 Time of Service: 09:15 Care Management Initial Assmt Initial Assessment Reason for Hospitalization: Encephalopathy Functional Status/Living Situation Patient Presentation: Per report, Dong presented with cirrhosis and ascites s/p TIPS with history of encephalopathy and was brought the the emergency room by EMS after he was found confused in his apartment where he lives alone ([facility]). Girlfriend (Najma) states he was last acting normal Tuesday night. He recently had surgery for his left ankle fracture and has been able to tolerate a walker in CAM (controlled ankle motion) Walker boot. Dong was sleeping in his bed, with Najma in the room when CM arrived. Per Najma, Dong does not have any children or close family but he has a support system through , including his sponsor (Lazaro). 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 Per Najma, Dong does receive home health PT 2 times a week, and at baseline, he is independent including driving. Najma states has been doing the driving, cooking/meal prep, and other things to help him. 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 Medications Medication Management: No Issues/Barriers identified Physical Functioning/Mobility Assistive Device: Walker, CAM boot Advance Directives Advance Directives: Do you have an Advance Directive: Y 04/23/24 14:05 AD On File at [facility]: Y 04/23/24 14:05 Date Asked 06/28/24 06/28/24 12:01 AD Date Reviewed 01/31/24 04/23/24 14:05 COLST On File at [facility] COLST Date Scanned Code Status Resuscitation Status Full Code Insurance Coverage/Financial Issues Insurance: BC/BS [place] [facility] Advantage Care Team Visit Care Team Role Provider Type George Luo Primary Care Provider NON-[facility] STAFF PHYSICIAN Torres Putnam MD Emergency Provider [facility] STAFF PHYSICIAN Torres Enrique Admit Provider [facility] STAFF PHYSICIAN Attending Provider Discharge Potential Discharge Needs: PCP F/U Appt Anticipated Barriers to Discharge: Medical Status Patient/Family Education Needs: Review discharge instructions, discuss Ask Me Three Transportation: Private vehicle Plan: Anticipate Dong will be discharged home with a resumption of HH PT. He will follow up with his PCP, and continue per his plan of care. He will likely transport via private vehicle when medically ready. Social Determinants of Health Screening Will the Patient Participate in the Screening?: Declined to provide PFSH All Active Problems (Updated 07/17/24 @ 15:15 by Torres Enrique) Bradycardia (Acute) SBP (spontaneous bacterial peritonitis) (Acute) Acute encephalopathy (Acute) Hyperammonemia (Acute) Closed fracture of left distal fibula (Acute) Bimalleolar fracture of left ankle (Acute ~06/28/24) Numbness of right hand (Acute) Peripheral neuropathy (Acute) Encephalopathy acute (Acute) Right carpal tunnel syndrome (Acute) Duodenitis (Acute) Liver mass, left lobe (Acute) 2.6 cm bx at [facility] on 02/06 Cholelithiasis (Acute) Gastritis (Acute) Esophageal reflux (Chronic) Left rotator cuff tear (Acute) Gallstones (Chronic) Cirrhosis (Chronic) Medical History (Updated 07/17/24 @ 15:15 by Torres Enrique) Alcohol use disorder in remission Esophagitis Duodenal ulcer disease Esophageal varices Melena Nausea & vomiting Hx of caloric malnutrition Anemia Drug abuse Left inguinal hernia Hepatitis C Fully treated Hx of non-insulin dependent diabetes mellitus Hx of pneumothorax History of rib fracture Hx of fracture of clavicle Scoliosis Hepatic encephalopathy Pancytopenia Red blood cell antibody positive with compatible PRBC difficult to obtain History of GI bleed variceal Surgical History S/P TIPS (transjugular intrahepatic portosystemic shunt) Has ultrasound done every 6 months last done 09/2023 Hx of basal cell carcinoma excision Hx of Achilles tendon repair History of esophagogastroduodenoscopy (EGD) (~01/16/20) multiple Previous back surgery Sanchez siva placement 1972 and then removal 1980 S/P hernia repair S/P shoulder surgery Family History Mother Breast cancer Sister Breast cancer Heart disease Diabetes Sister Breast cancer Hypertension Brother Cancer leukemia Brother Heart disease Diabetes Hypertension Maternal Grandmother Heart disease Father Diabetes Hypertension Social History Smoking/Tobacco Use Status: Never Smoking risk assessment performed?: Yes Alcohol Intake: former Year quit: 2019 Drug use: Current Sobriety Substance use type: does not use and former substance user Details: 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 Current gender identity: male What is your relationship status?: Panel score (0-1 are the most socially isolated patients): 0 Do you feel safe at home: Yes Additional Social history: lives alone Readmission Within the Past 30 Days Yes or No: Yes Date of First Admission Date of 1st Admission: 06/28/24 Date of this Admission Date of Admission: 07/16/24 This admission was: Through ED Speicalist Appointments Have you seen any other specialist since your 1st Admission?: Yes Date you saw the Specialist: 07/09/24 Specialist Seen: Orthopedics If the patient had a VNA ordered Did the patient have a VNA order?: Yes Did you call the VNA before you came?: No Ask the Care Team Members: What do you think caused the patient to be readmitted: Unrelated admission ED visits How many ED visits in the past 12 months: 8 Assessment for Readmission Summary of readmission circumstances, based upon interviews: The hospitalization were not related. Anticipated HH Services Anticipated HH Services at Discharge [facility] Resumption, PT Following Provider: George Lou.
[2024-07-17] MEDS: Ondansetron 4 MG/2 ML VIAL IVP (10:16)
[2024-07-17] MEDS: ACETAMINOPHEN 1,000 MG/100 ML BAG 400 MG IVPB (10:26)
--- NOTE | 2024-07-17 11:24 | PHA.REVIEW2 ---
Pharmacy Admission Review Admission Clinical Review Admission Pharmacy Review: SBP (spontaneous bacterial peritonitis) (Acute) Acute encephalopathy (Acute) Hyperammonemia (Acute) Bimalleolar fracture of left ankle (Acute ~06/28/24) Encephalopathy acute (Acute) oxycodone (From OxyContin) Adverse Reaction (Intermediate, Verified 07/04/24 14:44) Other (See Comment) zolpidem (From Ambien) Adverse Reaction (Verified 07/04/24 14:44) Other (See Comment) Resuscitation Status Full Code Height 5 ft 4 in Weight 82.5 kg Pharmacy Admission Review Renal Dosing Renal Dosing: BUN 16 mg/dL (7-18) 07/17/24 05:44 Creatinine 0.7 mg/dL (0.70-1.30) 07/17/24 05:44 Medications needing adjustments: Reviewed (CrCl 65.66 mL/min) List of meds needing interventions: Current medications are okay Anticoagulation Anticoagulation: Hgb 11.8 g/dL (13.5-17.5) L 07/17/24 05:44 Hct 32.3 % (40.0-50.0) L 07/17/24 05:44 Plt Count 123 10^3/uL (130-400) L 07/17/24 05:44 INR 1.2 (0.9-1.1) H 07/17/24 05:44 Creatinine 0.7 mg/dL (0.70-1.30) 07/17/24 05:44 DVT Prophylaxis: Reviewed Medications: Enoxaparin (40mg daily) Relevant Labs Relevant Labs: Sodium 147 mmol/L (136-145) H 07/17/24 05:44 Potassium 4.1 mmol/L (3.5-5.1) 07/17/24 05:44 Chloride 112 mmol/L (98-107) H 07/17/24 05:44 Magnesium 1.8 mg/dL 07/16/24 12:39 Electrolytes, C-Reactive P, ESR: Reviewed DM Control DM Control: Glucose 181 mg/dL (74-106) H 07/17/24 05:44 Hemoglobin A1c 6.1 % (<5.7) H 07/17/24 05:44 DM Control: Reviewed Insulin Dosing, Diabetic Medication: No diagnosis of diabetes listed. No orders as of right now Cardiac Review Cardiac Review: Troponin I Cancelled 07/16/24 15:14 Blood Pressure : Heart Rate 132/52 : 40 1035 Blood Pressure : Heart Rate 141/56 : 41 1021 Blood Pressure : Heart Rate 132/53 : 43 0912 Blood Pressure : Heart Rate 153/62 : 42 0802 Blood Pressure : Heart Rate 176/67 : 42 0602 Blood Pressure : Heart Rate 156/58 : 41 0401 Blood Pressure : Heart Rate 162/58 : 43 0201 Blood Pressure : Heart Rate 158/61 : 52 0001 BP, HR, EF%: Reviewed (HR 38 at 1115) List meds needing interventions: Has order for Precedex infusion - paused this morning QTc Review QTc: Reviewed (460 from 07/16/24) IV to PO Switch IV Medications: Reviewed (ceftriaxone, lorazepam, pantoprazole, ondansetron and thiamine - currently NPO) Home Meds Home Med List reviewed: Reviewed Relevent Home Meds Not ordered & why?: atorvastatin, Lum[place], vitamin D3, latanoprost, lisinopril, vitamin B12, multivitamin and sildenafil (PRN) Patient currently NPO - will reach out to provider if orders not put in once patient has improved and can tolerate PO intake Current Meds Current Medication Order Review: Reviewed Pharmacy Antibiotic Review Relevant Labs: WBC 2.79 10^3/uL (4.4-10.8) L 07/17/24 05:44 Temperature 36.5 C Temperature 36.4 C Temperature 36.3 C Pharmacy Antibiotic Activity: C/S review and Reviewed, no change Comments: Patient is on ceftriaxone, day 1. Blood cultures pending.
[2024-07-17] MEDS: cefTRIAXone 2 GM/50 ML BAG IVPB (14:12)
--- NOTE | 2024-07-17 14:37 | CHAPLAIN ---
Alonzo was sleeping when visited, but I spoke with his girlfriend, Najma. She is from [place] and drove over yesterday after Alonzo came to the ED. She's staying a Alonzo' house in [facility]. I explained my role to Najma and offered support. I'll continue to check in.
--- NOTE | 2024-07-17 14:54 | PGE_ITS ---
Date of Service Date of service: 07/17/24 Time of Service: 14:54 Assessment and Plan Assessment and plan (1) Encephalopathy acute: Status: Acute Assessment and plan: Teleneurology note reviewed from admission No focal findings on CTA or MRI to explain presenation Hepatic encephalopathy is by far the most likely cause given his cirrhosis with h/o TIPS and high ammonia. Exam has been difficult however with agitation requiring sedation He could have overused his opioids, but not c/w overt opioid overdose, hepatic encephalopathy could have simply been triggered by routine opioid pain medication and stress of his surgery. Unable to do paracentesis to rule out SBP, continue ceftriaxone for now No other signs of infection on exam/imaging/labs Treating with lactulose, started with CA as he is sedated, oral when more alert Off precedex since this morning ICU for close monitoring given mental status. (2) Cirrhosis: Status: Chronic Assessment and plan: overall his cirrhosis has not decompensated, though he is still at risk of encephalopathy Continue to monitor, get INR (3) Hypertension: Status: Resolved Assessment and plan: BP high but in setting of agitation, continue to monitor INR, LFTs (4) Alcohol use disorder in remission: Assessment and plan: stable in remission, EtOH levels on admission negative. give IV thiamine just in case, levels wouldn't come back quickly (5) Anemia: Assessment and plan: mild, follow (6) Bimalleolar fracture of left ankle: Status: Acute Assessment and plan: no apparent complications to surgery. Continue wound care. Has APAP for pain but limited to 2g, can use low dose hydromorphone prn, sensitive with confusion after oxycodone (7) Bradycardia: Status: Acute Assessment and plan: Since precedex drip. Monitor, consider atropine of BP becomes unstable. I expect this to gradually improve. (8) DVT prophylaxis: Status: Resolved Assessment and plan: enoxaparin Subjective Subjective Patient reports: denies vomiting or fever Interval history since last seen: Sedated overnight on precedex stopped this morning at 8am after initial rounds Waking, but still not able to give history. Per RN isidro some small stools. urine output has dropped Exam Narrative Exam Narrative: GEN: Sleepy, responds to touch, not following commands consistently. No acute distress at rest. LUNGS: CTAB with normal effort CV: bradycardic but regular with no murmurs, gallops, or rubs. ABD: active bowel sounds, soft, shifting dullness and slight fluid wave noted, not tensely distended. No masses. not tender EXT: no cyanosis, clubbing, or edema. left ankle splinted NEURO: He is moving all 4 extremities, no asymmetry noted. Sedated. DTRs symmetric patella and biceps bilaterally. No tremor Objective Last Vital Signs Temp 36.5 C 07/17/24 11:15 Pulse 38 L 07/17/24 11:47 Resp 17 07/17/24 11:47 BP 103/45 L 07/17/24 11:47 Pulse Ox 96 07/17/24 11:47 Laboratory Results - last 24 hr 07/16/24 07/16/24 07/17/24 14:59 15:15 05:44 WBC 2.79 L RBC 3.48 L Hgb 11.8 L Hct 32.3 L MCV 93 MCH 33.9 H MCHC 36.5 H RDW 12.9 Plt Count 123 L MPV 8.6 Immature Gran % 0.0 Neutrophils % 59.4 Lymphocytes % 16.5 Monocytes % 14.0 Eosinophils % 9.0 Basophils % 1.1 Nucleated RBC % 0.0 Absolute Neutrophils 1.66 Absolute Lymphocytes 0.46 L Absolute Monocytes 0.39 Absolute Eosinophils 0.25 Absolute Basophils 0.03 PT 11.8 H INR 1.2 H VBG Lactate 1.9 Sodium 147 H Potassium 4.1 Chloride 112 H Carbon Dioxide 23.2 Anion Gap 11.8 H BUN 16 Creatinine 0.7 Est GFR (CKD-EPI 2020) 98.51 Glucose 181 H Hemoglobin A1c 6.1 H Calcium 9.1 Total Bilirubin 1.7 H AST 29 ALT 23 Alkaline Phosphatase 136 H Total Protein 6.3 L Albumin 2.8 L Vitamin B12 1185 H Urine Color Yellow Urine Clarity Clear Urine pH 6.0 Ur Specific [place] 1.010 Urine Protein Trace Urine Ketones 15 H Urine Blood Small H Urine Nitrite Negative Urine Bilirubin Negative Urine Urobilinogen 1.0 H Ur Leukocyte Esterase Negative Urine RBC 5-10 H Urine WBC Negative Ur Epithelial Cells Negative Urine Crystals Negative Urine Bacteria Negative Urine Casts Negative Urine Mucus Negative Ur Culture Indicated? No Urine Glucose Negative Urine Opiates Screen Positive A Urine Methadone Screen Negative Ur Barbiturates Screen Negative Ur Tricyclics Screen Negative Ur Amphetamines Screen Negative U Benzodiazepines Scrn Negative Urine Cocaine Screen Negative Ur THC Screen Negative Time Spent with Patient Time Spent with Patient: >50 minutes Time was spent: preparing to see the patient(eg.review tests), obtaining and/or reviewing separately otained hiistory, ordering medications,tests, procedures, referring, communicating with other health career development coordinator/teacher, indepentently interpreting results, counseling the patient and care coordination
[2024-07-17] MEDS: HYDROmorphone 2 MG TAB 1 MG PO ×3 (15:21→23:26)
[2024-07-17] MEDS: Lactulose 20 GM/30 ML CUP 30 GM PO (19:23)
[2024-07-17] MEDS: Latanoprost 0.005% 2.5 ML BTL OP (19:24)
[2024-07-17] MEDS: Enoxaparin 40 MG/0.4 ML SYR SC (19:25)
[2024-07-17] MEDS: Acetaminophen 325 MG TAB 650 MG PO (22:10)
[2024-07-18] VITALS (16 sets, daily range): BP systolic 126–171; BP diastolic 58–79; PULSE 56–83; RESP 12–26; TEMP 36.4–37.3; O2SAT 95–100
[2024-07-18] MEDS: LORazepam 2 MG/ML VIAL 1 MG IVP ×3 (02:10→20:38)
[2024-07-18] MEDS: HYDROmorphone 2 MG TAB 1 MG PO ×4 (03:40→18:18)
[2024-07-18 05:51] LABS: HCT 32.2 % (40.0-50.0); HGB 11.7 g/dL (13.5-17.5); MCHC 36.3 % (32.0-36.0); MCV 94 fL (80-95); MPV 8.6 fL (8.0-11.0); Platelet Count 135 10^3/uL (130-400); RBC 3.44 10^6/uL (4.36-5.78); RDW 13.3 % (11.8-14.1); RDW-SD 45.2 fL; WBC 3.71 10^3/uL (4.4-10.8)
[2024-07-18 06:14] LABS: ALT 19 U/L (16-63); AST 31 U/L (15-37); Albumin 2.8 g/dL (3.4-5.0); Alkaline Phosphatase 130 U/L (46-116); Anion Gap 10.3 mmol/L (3-11); BUN 15 mg/dL (7-18); Bilirubin, Direct 0.5 mg/dL (0.0-0.2); Bilirubin, Total 1.4 mg/dL (0.2-1.0); CO2 23.7 mmol/L (21.0-32.0); CREATININE 0.8 mg/dL (0.70-1.30); Chloride 110 mmol/L (98-107); Estimated GFR 94.62 (mL/min/1.73m2); Glucose 121 mg/dL (74-106); Potassium 3.5 mmol/L (3.5-5.1); Sodium 144 mmol/L (136-145); Total Protein 6.1 g/dL (6.4-8.2)
[2024-07-18] MEDS: Albuterol 2.5 MG/3 ML INH SOLN VIAL UPD (06:25)
[2024-07-18] MEDS: Lactulose 20 GM/30 ML CUP 30 GM PO ×3 (08:07→19:12)
[2024-07-18] MEDS: Cyanocobalamin 500 MCG TAB PO (08:08)
[2024-07-18] MEDS: Multivitamin TAB 1 TAB PO (08:08)
[2024-07-18] MEDS: Atorvastatin 20 MG TAB PO (08:09)
[2024-07-18] MEDS: Lisinopril 10 MG TAB PO (08:09)
[2024-07-18] MEDS: Cholecalciferol (Vitamin D3) 1,000 UNIT TAB 1000 UNITS PO (08:09)
[2024-07-18] MEDS: Bimatoprost 0.01% 2.5 ML BTL OP (08:09)
[2024-07-18] MEDS: Pantoprazole 40 MG TABCR PO (08:09)
[2024-07-18] MEDS: Normal Saline Flush 10 ML SYR IVP ×2 (08:10→19:13)
--- NOTE | 2024-07-18 09:03 | W.NUTRFU ---
Date of service: 07/18/24 Time of Service: 09:04 Nutrition Note NOTE: Pt being treated for acute encephalopathy d/t chronic cirrhosis (no current etoh use). Pt with hx of HTN, Anemia, s/p fracture of ankle requiring surgery. Ammonia levels still high - pt not appropriate with diet history at this time. Poor pop intake over 2 meals this admission with current albumin and total protein labs low. Hx of diabetes with most recent a1c 6.1% yesterday. Fasting glucose 121 this morning. 5kg wt loss noted over the last ~1year. Home meds include Vitamin D, zinc, MVI, milk thistle, tumeric, statin. Pt currently ordered for regular diet with normal consistencies. Current estimated energy requirements: 1774 kcals (1.2AFxREE for healthy weight reduction), 85g protein (1.5g/kg of IBW) with emphasis on sources from plants. nutrition dx: inadequate intake related to pt current acute illness with elevated ammonia levels, as evidenced by 0-25% intake over the last 2 meals this admission and low albumin and total protein labs. intervention: With chronic liver disease and current elevated ammonia levels would still stress higher protein diet - however with pt demonstrating poor po intake, will have kitchen staff offer oral nutrition supplements to support po intake at 2pm and 7pm nourishment times until po intake can picking tech and pt can start meeting minimum nutrition requirements po. Will monitor labs, po intake, acceptance/toleration of ONS. Time Spent in Nutritional Counseling and Treatment: 0
--- NOTE | 2024-07-18 09:52 | W.PM.PROGNOT ---
Date of Service Date of service: 07/18/24 Time of Service: 09:52 Assessment and Plan Assessment and plan (1) Encephalopathy acute: Status: Acute Assessment and plan: -Teleneurology note reviewed from admission -No focal findings on CTA or MRI to explain presenation -likely due to hepatic encephalopathy given history of cirrhosis and s/p TIPS, as well as slow improvment with lactulose -Unable to do paracentesis to rule out SBP, continue ceftriaxone for now -No other signs of infection on exam/imaging/labs -was on TN lactulose, now on PO which will be continued -was on precedex which has been discontinued since AM 07/17 (2) Cirrhosis: Status: Chronic Assessment and plan: -overall his cirrhosis has not decompensated, though he is still at risk of encephalopathy -Continue to monitor, get INR (3) Hypertension: Status: Resolved Assessment and plan: -BP had been high but in setting of agitation -BPs now 120-160's systolic (4) Alcohol use disorder in remission: Assessment and plan: -stable in remission, EtOH levels on admission negative. -give IV thiamine just in case, levels wouldn't come back quickly (5) Anemia: Assessment and plan: -mild, follow (6) Bimalleolar fracture of left ankle: Status: Acute Assessment and plan: -no apparent complications to surgery. -Continue wound care. (7) Bradycardia: Status: Acute Assessment and plan: -occured while on precedex drip, now improved since it has been discontinued (8) DVT prophylaxis: Status: Resolved Assessment and plan: enoxaparin Subjective Subjective Interval history since last seen: Patient states that he is feeling lousy today as he has a sore throat and his ankle is hurting, though he was just given Dilaudid and it seems to be helping. Otherwise he has no other complaints or concerns at this time. Exam Narrative Exam Narrative: Chronically ill-appearing older gentleman laying in bed in no acute distress, awake alert, oriented x 4, lungs with coarse upper airway breath sounds but with good air movement bilaterally, abdomen soft, nontender, nondistended Objective Last Vital Signs Temp 99.1 F 07/18/24 08:40 Pulse 74 07/18/24 08:02 Resp 18 07/18/24 08:02 BP 161/69 H 07/18/24 08:02 Pulse Ox 99 07/18/24 08:02 Laboratory Results - last 24 hr 07/16/24 07/16/24 07/18/24 17:43 Unknown 05:27 WBC 3.71 L RBC 3.44 L Hgb 11.7 L Hct 32.2 L MCV 94 MCH 34.0 H MCHC 36.3 H RDW 13.3 Plt Count 135 MPV 8.6 Sodium 144 Potassium 3.5 Chloride 110 H Carbon Dioxide 23.7 Anion Gap 10.3 BUN 15 Creatinine 0.8 Est GFR (CKD-EPI 2020) 94.62 Glucose 121 H Calcium 9.0 Total Bilirubin 1.4 H Conjugated Bilirubin 0.5 H AST 31 ALT 19 Alkaline Phosphatase 130 H Total Protein 6.1 L Albumin 2.8 L Fluid Type Cancelled Fluid Glucose Cancelled Fluid Total Protein Cancelled Fluid LDH Cancelled Time Spent with Patient Time Spent with Patient: >50 minutes Time was spent: preparing to see the patient(eg.review tests), obtaining and/or reviewing separately otained hiistory, ordering medications,tests, procedures, referring, communicating with other health childcare center director, indepentently interpreting results, counseling the patient and care coordination
--- NOTE | 2024-07-18 09:53 | CMPROGNOTE_ITS ---
Date of service: 07/18/24 Time of Service: 09:53 Care Management Progress Note Progress Note Text Progress Note Text: Dong was sitting up in bed when CM arrived. He appeared tired, but willing to engage in conversation. 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 Dong also stated that he was not feeling great, and refused to eat breakfast and turned down ordering lunch. Per Dong, at the time of discharge, he will have a private vehicle transport him. Per RN, Dong presented with SI this morning and has previously been in the ED for SI (2019). He is being closely monitored by REVENUE STAMPER. Per Dong, he is feeling like he isn't going to make it out of the hospital and is feeling a sense of hopelessness which started when he arrived at the hospital. Per Dong, he does not have a plan or access to deadly means. CM will continue to follow. Discharge Potential Discharge Needs: PCP F/U Appt Anticipated Barriers to Discharge: Medical Status Patient/Family Education Needs: Review discharge instructions, discuss Ask Me Three Transportation: Private vehicle (Partner, or friends) Plan: Anticipate Dong will be discharged home with a resumption of HH PT. He will follow up with his PCP, and continue per his plan of care. He will likely transport via private vehicle when medically ready. Social Determinants of Health Screening Will the Patient Participate in the Screening?: Declined to provide Anticipated HH Services Anticipated HH Services at Discharge [facility] Resumption, PT Following Provider: George Lou .
[2024-07-18] MEDS: Ondansetron O.D.T. 4 MG TABEF PO (10:06)
--- NOTE | 2024-07-18 11:53 | IN_ITS ---
PT Notes Visit Reasons: Encephalopathy Physical Therapy Inpatient Initial Evaluation Date: 07/18/2024 Referring Doctor: Lester Monterroso MD PT Orders: PT CONSULT: Eval/Treat Precautions: Fall. Standard. Per Dr. Borjas of [facility] orthpedics as of 07/06/2024: JASON sierraugh the L LE with AD. Patient Profile/Admitting Diagnosis: Alonzo is a 69-year-old male patient with past medical history significant for stage 5 liver cancer receiving radiation at [facility], liver cirrhosis, and ETOH use disorder in remission who sustained a bimalleolar fracture on the L from slipping in the mud two weeks ago. He also sustained a mid clavicle fracture with distal end of fracture fragment rotated plantarl. He is admitted for management of acute hepatic encephalpathy, HTN, Anemia, and bradycardia along with his ankle and clavicular fracture. PMHX: All Active Problems (Updated 07/16/24 @ 17:55 by Torres Enrique) Acute encephalopathy (Acute) Hyperammonemia (Acute) Closed fracture of left distal fibula (Acute) Bimalleolar fracture of left ankle (Acute ~06/28/24) Numbness of right hand (Acute) Peripheral neuropathy (Acute) Encephalopathy acute (Acute) Right carpal tunnel syndrome (Acute) Duodenitis (Acute) Liver mass, left lobe (Acute) 2.6 cm bx at [facility] on 02/06 Cholelithiasis (Acute) Gastritis (Acute) Esophageal reflux (Chronic) Left rotator cuff tear (Acute) Gallstones (Chronic) Cirrhosis (Chronic) Medical History (Updated 07/16/24 @ 17:55 by Torres Enrique) Alcohol use disorder in remission Esophagitis Hx of non-insulin dependent diabetes mellitus Hx of pneumothorax History of rib fracture Hx of fracture of clavicle Scoliosis Duodenal ulcer disease Melena Nausea & vomiting Hx of caloric malnutrition Anemia Left inguinal hernia Drug abuse Hepatic encephalopathy Pancytopenia Red blood cell antibody positive with compatible PRBC difficult to obtain History of GI bleed variceal Hepatitis C Fully treated Esophageal varices Surgical History Hx of basal cell carcinoma excision Hx of Achilles tendon repair History of esophagogastroduodenoscopy (EGD) (~01/16/20) multiple Previous back surgery Sanchez siva placement 1972 and then removal 1980 S/P hernia repair S/P shoulder surgery S/P TIPS (transjugular intrahepatic portosystemic shunt) Has ultrasound done every 6 months last done 09/2023 Social History/Home Situation: Lives alone in a private home with 13 steps to enter. Arelis Yao lives an hour away and has been supportive. Has friends who can provide support. Equipment Owned/DME: FWW, fiberglass cast Subjective: Fatigued and weak but with encouragement agreed to get out of bed for the first time since admission on 07/16/2024. Added that he did fracture his R clavicle and prefers not to use the crutches. Complained f pain at 8/10 in the L leg and foot at rest and with movement. Objective: General Observation: Fiberglass splint on L leg and foot. Telemetry monitoring in place. Rosario catheter in place. Mental Status: drowsy but and oriented as to person, place, and purpose. Moderately able to pay attention, focus, and respond appropriately. Pain: 7-8/10 in the L ankle that did not increase with WB Vital Signs: Closley monitored by nursing staff ROM: Right Upper Extremity: Shoulder Flexion WFL. Shoulder abduction WFL. Elbow flexion WFL. Wrist flexion WFL. Functional opening and closing of hand WFL. Left Upper Extremity: Shoulder Flexion allows up t0 50% of AROM limited by pain from mid clavicular fracture. Shoulder abduction allows up t0 50% of AROM limited by pain from mid clavicular fracture. Elbow flexion WFL. Wrist flexion WFL. Functional opening and closing of hand WFL. Right Lower Extremity: Hip flexion WFL. Hip abduction WFL. Knee flexion WFL. Ankle dorsiflexion WFL. Ankle plantarflexion WFL. Left Lower Extremity: Hip flexion WFL. Hip abduction WFL. Knee flexion WFL. Ankle dorsiflexion WFL. Ankle plantarflexion WFL. Strength: Right Upper Extremity: Shoulder flexors 4-/5. Shoulder abductors 4-/5. Elbow flexors 5-/5. Elbow extensors 4/5. Electrophysiology Nurse Practitioner strong. Left Upper Extremity: Shoulder flexors 3-/5. Shoulder abductors 3-/5. Elbow flexors 4-/5. Elbow extensors 4-/5. Electrophysiology Nurse Practitioner strong. Right Lower Extremity: Hip flexors 5/5. Hip abductors 5/5. Knee flexors 5/5. Knee extensors 5/5. Ankle dorsiflexors 5/5. Ankle plantarflexors 5/5. Left Lower Extremity: Hip flexors 5/5. Hip abductors 5/5. Knee flexors 5/5. Knee extensors 5/5. Ankle dorsiflexors NT. Ankle plantarflexors NT. Bed Mobility/Transfers: Moderate cueing provided for use of B hands as needed for support, movement sequence, AD management, and posture to reduce fall risk and minimize pain report Rolling moderate assist of 2 Supine to sit moderate assist of 2 Sit to stand moderate assist of 2 Stand to sit minimal assist assist of 2 Gait: Able to gently hop from edge of bed to bedside recliner provided for patient using FWW and moderate assist of Nurse Arriola and this PT with some weight bearing patient was putting through L LE for balance with pain reported at 8/10 in the L ankle/leg. No further ambulation was done due to WB restriction, decreased level of alertness, and pain report. Stairs: DEFERRED due to safety reasons, impaired level of alertness, and WB precautions Balance: Static Sitting: Normal Dynamic Sitting: Normal Static Standing: Fair Dynamic Standing: Fair Special Tests: Mobility Limitations Standardized Measure [facility] AM-PAC 6 clicks Basic Mobility Inpatient Short Form: Raw Score: 10 CMS Score: 77 point % deficit% deficit Informed Consent/Education: Patient was instructed in purpose of PT consult and need for functional mobility training. Assessment: Patient with bimalleolar fracture of L ankle sustained from a mechanical fall outside of his house and a pre-existing L mid clavicular fracture. Alonzo is admitted for management of acute hepatic encephalopathy, stage 5 liver cancer, HTN, ETOH use disorder, anemia, and bradycardia. Per Dr. Borjas of [facility] orthopedics, patient is NWB through L LE. Patient currently has impaired level of alertness, high pain level through L LE at rest, and WB restriction which continue to compromise safety and limit mobility performance. He is at high risk for falls, further functional decline, and physical deconditioning and will require continued rehabilitation. With his weight bearing precaution and ongoing comorbid conditions, he may benefit from the use of a wheelchair until level of alertness and pain level improves. Patient has lived alone and will not have ready support from his girlfriend who lives an hour from him. Patient presents with clinical signs and symptoms consistent with current/admitting diagnoses that have resulted to mobility limitations, gait instability, generalized weakness, and overall ADL decline as demonstrated by the following impairment level findings: 1. Decreased strength to L ankle major muscle groups, L shoulder, and B UE major muscle groups 2. Impaired sitting/standing balance 3. Impaired activity tolerance 4. Limitation of joint range of motion in L ankle (stabilized in fracture boot) 5. NWB through L LE Impairments are contributing to the following functional limitations: 1. Decline in bed mobility skills 2. Decline in transfer skills 3. Difficulty with ambulation without assistive device 4. Increased completion time for mobility ADL performance 5. Increased risk for falls 6. Minimal difficulty with managing steps due to WB precaution Patient is assessed as a 53294 moderate complexity based on the following: History: 69-year-old male with past medical history as indicated above Examination: Demonstrable impairment in strength, balance, and mobility level with underlying impairments and functional limitations as exhibited above Presentation: Evolving Decision Makin moderate complexity Goals: Goals X1 week 1. Supine-Sit independent 2. Sit-Supine independent 3. Sit-Stand independent with FWW and NWB through L LE 4. Stand-Sit independent with FWW and NWB through L LE 5. Bed-Chair independent with FWW and NWB through L LE 6. Chair-Bed independent with FWW and NWB through L LE 7. Independent with wheelchair propulsion indoors Plan of Care/Treatment Plan: Patient will highly benefit from skilled physical therapy services including functional mobility training, bed mobility/transfer training, gait and balance training, therapeutic exercises, therapeutic activity, caregiver/staff/family education and training 1x/day, 7 days/week x 1 week. Plan of care has been re viewed with the OUTSIDE ENERGY SALES REPRESENTATIVES providing the service under Physical Therapy direction. Initiate Physical Therapy intervention for strengthening, bed mobility, transfers, gait, stairs, balance training, use of assistive device. DISCHARGE RECOMMENDATIONS: [] Home with no services [] [] Home with services [] [] Home with outpatient PT [] [X] SNF for continued rehabilitation. Patient will benefit from [facility] facility placement for continued skilled physical therapy services in order to progress mobility level, strength, and balance in preparation for a safe discharge to home. [] [facility] [] [] SNF versus LTC based on ability to participate and progress [] TREATMENT CODE/TIME: 57918 x 20 minutes for 1 unit, 36776 x 12 minutes for 1 unit (11:53-12:25) Thank you for the opportunity to participate in the care of this patient. Aleida Julian PT, DPT, CLT [facility] [place], [place]
[2024-07-18] MEDS: Acetaminophen 325 MG TAB 650 MG PO ×3 (12:27→23:21)
[2024-07-18] MEDS: cefTRIAXone 2 GM/50 ML BAG IVPB (13:45)
--- NOTE | 2024-07-18 15:18 | PT.INTREAT ---
PT Notes Visit Reasons: Encephalopathy Physical Therapy Inpatient Treatment Note Date: 07/18/2024 Precautions: Fall. Standard. Per Dr. Borjas of [facility] [place] orthopedics as of 07/06/2024: JASON simmons the L LE with AD. Subjective: Per Nurse Zeinab, patient has been tired and wanted to get back to bed. Patient was agreeable to being moved back to bed using the walker. Objective: General Observation: Fiberglass splint on L leg and foot. Telemetry monitoring in place. Rosario catheter in place. Mental Status: drowsy but and oriented as to person, place, and purpose. Moderately able to pay attention, focus, and respond appropriately. Pain: 5/10 in the L ankle that did not increase with WB Vital Signs: Closeley monitored by nursing staff Bed Mobility/Transfers: Moderate cueing provided for use of B hands as needed for support, movement sequence, AD management, and posture to reduce fall risk and minimize pain report Rolling moderate assist of 2 Supine to sit moderate assist of 2 Sit to stand moderate assist of 2 Stand to sit minimal assist assist of 2 Gait: Able to gently hop from bedside recliner to edge of bed using FWW and moderate assist of Nurse Arriola and this PT with some weight bearing through L LE for balance with pain reported at 5/10 in the L ankle/leg. No further ambulation was done due to WB restriction, decreased level of alertness, and pain report. Stairs: DEFERRED due to safety reasons, impaired level of alertness, and WB precautions Balance: Static Sitting: Normal Dynamic Sitting: Normal Static Standing: Poor Dynamic Standing: Unable to test Assessment: Patient remains drowsy due to Valium this morning and pain pill intake. He was safely assisted back from bedside chair to bed for this session and is not able to do any other activity due to decreased attention level. With moderate cueing and moderate assiatnce of PT and Nurse Arriola, patient was assisted back to bed with the R LE leading and gently hopping. He was able to push down onto chair armrests to stand up but needed PT to help with AD management during transfer for safety. Patient with bimalleolar fracture of L ankle sustained from a mechanical fall outside of his house and a pre-existing L mid clavicular fracture. Alonzo is admitted for management of acute hepatic encephalopathy, stage 5 liver cancer, HTN, ETOH use disorder, anemia, and bradycardia. Per Dr. Borjas of [facility] [place] orthopedics, patient is NWB through L LE. Patient currently has impaired level of alertness, high pain level through L LE at rest, and WB restriction which continue to compromise safety and limit mobility performance. He is at high risk for falls, further functional decline, and physical deconditioning and will require continued rehabilitation. With his weight bearing precaution and ongoing comorbid conditions, he may benefit from the use of a wheelchair until level of alertness and pain level improves. Patient has lived alone and will not have ready support from his girlfriend who lives an hour from him. Plan of Care/Treatment Plan: Patient will highly benefit from skilled physical therapy services including functional mobility training, bed mobility/transfer training, gait and balance training, therapeutic exercises, therapeutic activity, caregiver/staff/family education and training 1x/day, 7 days/week x 1 week. Plan of care has been reviewed with the FIRE DEPARTMENT BATTALION CHIEF providing the service under Physical Therapy direction. Initiate Physical Therapy intervention for strengthening, bed mobility, transfers, gait, stairs, balance training, use of assistive device. DISCHARGE RECOMMENDATIONS: [] Home with no services [] [] Home with services [] [] Home with outpatient PT [] [X] SNF for continued rehabilitation. Patient will benefit from [facility] facility placement for continued skilled physical therapy services in order to progress mobility level, strength, and balance in preparation for a safe discharge to home. [] Bakery Machine Mechanic Supervisor Care [] [] SNF versus LTC based on ability to participate and progress [] TREATMENT CODE/TIME: 62161 x 15 minutes for 1 unit (03:18-03:33)
--- NOTE | 2024-07-18 18:04 | W.PC.ACHO ---
Registration Status: Primary Language: Preferred Language: ED Information & Data Chief Complaint CVA/TIA 07/16/24 12:33 Chief Complaint CVA/TIA 07/16/24 12:28 Triage Note last seen normal on tuesday07/16/24 12:28 . today pt unable to answer questions, axo to self only, unable to verbalized needs. Right facial droop, right arm drift/weakness. had LLE surg 5 days ago. Medical / Surgical History (Last Updated 07/16/24 @ 17:55 by Torres Enrique) Alcohol use disorder in remission Esophagitis Duodenal ulcer disease Esophageal varices Melena Nausea & vomiting Hx of caloric malnutrition Anemia Drug abuse Left inguinal hernia Hepatitis C Hx of non-insulin dependent diabetes mellitus Hx of pneumothorax History of rib fracture Hx of fracture of clavicle Scoliosis Hepatic encephalopathy Pancytopenia Red blood cell antibody positive with compatible PRBC difficult to obtain History of GI bleed (Last Reviewed 07/16/24 @ 17:39 by Torres Enrique) S/P TIPS (transjugular intrahepatic portosystemic shunt) Hx of basal cell carcinoma excision Hx of Achilles tendon repair History of esophagogastroduodenoscopy (EGD) (~01/16/20) Previous back surgery S/P hernia repair S/P shoulder surgery Most Recent Vital Signs Temperature 36.4 C L 07/18/24 14:27 Temperature Source Temporal Artery Scan 07/18/24 08:40 Pulse 66 07/18/24 14:27 Pulse 75 07/18/24 10:31 Respiratory Rate 20 07/18/24 14:27 Respiratory Effort Normal 07/16/24 18:44 Respiratory Depth Normal 07/16/24 18:44 Respiratory Pattern Tachypnea 07/16/24 18:44 Blood Pressure 126/58 L 07/18/24 14:27 Blood Pressure Mean 77 07/18/24 14:27 Blood Pressure Position Supine 07/16/24 18:44 Pulse Oximetry 96 07/18/24 14:27 Oxygen Delivery Method Room Air 07/18/24 07:59 Oxygen Flow Rate 0 07/18/24 07:59 Pain Level 7 07/18/24 09:15 Comment 8/10 pain from left fractured ankle. Dr Enrique ordered 1 mg of Dilaudid 07/17/24 15:26 Allergies oxycodone (From OxyContin) Adverse Reaction (Intermediate, Verified 07/04/24 14:44) Other (See Comment) confusion zolpidem (From Ambien) Adverse Reaction (Verified 07/04/24 14:44) Other (See Comment) sleep driving Precautions Isolation Standard precaution 07/16/24 12:33 Active Medications Generic Name Dose Route Start Last Admin Trade Name Freq PRN Reason Stop Dose Admin Acetaminophen 650 mg 07/17/24 10:07 07/18/24 12:27 Acetaminophen 325 Mg Tab PO 650 mg Q4H PRN PRN Administration Albuterol Sulfate 2.5 mg 07/18/24 06:10 07/18/24 06:25 Albuterol 2.5 Mg/3 Ml Inh Soln Vial UPD 2.5 mg Q4H PRN PRN Administration Atorvastatin Calcium 20 mg 07/18/24 08:30 07/18/24 08:09 Atorvastatin 20 Mg Tab PO 20 mg DAILY ARSENIO Administration Bimatoprost 0 ml 07/18/24 08:30 07/18/24 08:09 Bimatoprost 0.01% 2.5 Ml Btl OP 1 drp DAILY ARSENIO Administration Cholecalciferol 1,000 units 07/18/24 08:30 07/18/24 08:09 Cholecalciferol (Vitamin D3) 1,000 Unit Tab PO 1,000 units DAILY ARSENIO Administration Cyanocobalamin 500 mcg 07/18/24 08:30 07/18/24 08:08 Cyanocobalamin 500 Mcg Tab PO 500 mcg DAILY ARSENIO Administration Enoxaparin Sodium 40 mg 07/16/24 20:00 07/17/24 19:25 Enoxaparin 40 Mg/0.4 Ml Syr SC 40 mg Q24H ARSENIO Administration Hydromorphone HCl 1 mg 07/17/24 15:08 07/18/24 13:44 Hydromorphone 2 Mg Tab PO 1 mg Q4H PRN PRN Administration Ceftriaxone Sodium/Dextrose 2 gm in 50 mls @ 100 mls/hr 07/17/24 14:00 07/18/24 13:45 Rocephin IVPB 100 mls/hr Q24H ARSENIO Administration Lactulose 30 gm 07/17/24 20:00 07/18/24 13:45 Lactulose 20 Gm/30 Ml Cup PO 30 gm TID ARSENIO Administration Latanoprost 0 ml 07/17/24 20:00 07/17/24 19:24 Latanoprost 0.005% 2.5 Ml Btl OP 1 drp QPM ARSENIO Administration Lisinopril 10 mg 07/18/24 08:30 07/18/24 08:09 Lisinopril 10 Mg Tab PO 10 mg DAILY ARSENIO Administration Lorazepam 1 mg 07/16/24 16:58 07/18/24 08:09 Lorazepam 2 Mg/Ml Vial IVP 1 mg Q2H PRN PRN Administration Multivitamins 1 tab 07/18/24 08:30 07/18/24 08:08 Multivitamin Tab PO 1 tab DAILY ARSENIO Administration Ondansetron HCl 4 mg 07/18/24 09:40 07/18/24 10:06 Ondansetron O.D.T. 4 Mg Tabef PO 4 mg Q8H PRN PRN Administration Pantoprazole Sodium 40 mg 07/18/24 07:30 07/18/24 08:09 Pantoprazole 40 Mg Tabcr PO 40 mg DAILY@0730 ARSENIO Administration Sodium Chloride 0 ml 07/17/24 08:00 07/18/24 08:10 Normal Saline Flush 10 Ml Syr IVP 40 ml PRN PRN Administration IV IV Catheter Type [Left Forearm Peripheral IV ] IV Catheter Type [Right Saline Lock Antecubital] IV Catheter Gauge [Left 20 Forearm] IV Catheter Gauge [Right 18 Antecubital] Diagnostics 07/18/24 Range/Units 05:27 WBC 3.71 L (4.4-10.8) 10^3/uL RBC 3.44 L (4.36-5.78) 10^6/uL Hgb 11.7 L (13.5-17.5) g/dL Hct 32.2 L (40.0-50.0) % MCV 94 (80-95) fL MCH 34.0 H (27.0-33.0) pg MCHC 36.3 H (32.0-36.0) % RDW 13.3 (11.8-14.1) % Plt Count 135 (130-400) 10^3/uL MPV 8.6 (8.0-11.0) fL Sodium 144 (136-145) mmol/L Potassium 3.5 (3.5-5.1) mmol/L Chloride 110 H (98-107) mmol/L Carbon Dioxide 23.7 (21.0-32.0) mmol/L Anion Gap 10.3 (3-11) mmol/L BUN 15 (7-18) mg/dL Creatinine 0.8 (0.70-1.30) mg/dL Est GFR (CKD-EPI 2020) 94.62 (mL/min/1.73m2) Glucose 121 H (74-106) mg/dL Calcium 9.0 (8.5-10.1) mg/dL Total Bilirubin 1.4 H (0.2-1.0) mg/dL Conjugated Bilirubin 0.5 H (0.0-0.2) mg/dL AST 31 (15-37) U/L ALT 19 (16-63) U/L Alkaline Phosphatase 130 H (46-116) U/L Total Protein 6.1 L (6.4-8.2) g/dL Albumin 2.8 L (3.4-5.0) g/dL 07/16/24 14:05 Blood Culture - Preliminary Blood NO GROWTH 48 HOURS 07/16/24 12:39 Blood Culture - Preliminary Blood NO GROWTH 48 HOURS [id number] Documentation Fingerstick Glucose Start: 07/16/24 12:10 Freq: Status: Complete Protocol: Activity Type Activity Date Activity User E-sign Co-sign Detail Recorded Client Recorded Date Recorded By Document 07/16/24 12:09 PARAMJIT BARILLAS(3) [id number] 07/16/24 12:10 PARAMJIT BARILLAS(4) Intake and Output - 24 Hour Total 07/16/24 12:00 thru 07/18/24 13:24 Intake Total 2895.971 Output Total 2300 Balance 595.971 Weight 81.3 kg Intake: IV 2645.971 Oral 250 Output: Urine 2300 Other: Urine Color Dark Treva Urine Appearance Clear Comment Tea colored urine Stool Size Moderate Stool Characteristics Soft Liquid Brown Falls Risk Assessment History of Falls No History 07/16/24 12:33 Contributing Factors Confusion,Impairments, 07/16/24 18:44 Incontinence,Medications Tubes/Lines W/no contributing factors 07/16/24 18:44 Fall Total Score 22 07/16/24 18:44 Level of Risk Standard/Low Risk 07/16/24 18:44 Problems (Last Updated 07/16/24 @ 17:55 by Torres Enrique) Bradycardia (Acute) SBP (spontaneous bacterial peritonitis) (Acute) Acute encephalopathy (Acute) Hyperammonemia (Acute) Bimalleolar fracture of left ankle (Acute ~06/28/24) Encephalopathy acute (Acute) Cirrhosis (Chronic) v v v v v v v v v Sending and/or Receiving Nurses: Please use comment section below to note any information pertinent to the patient hand-off not included above. Information / Comments: Report received from: dianne at [id number]
[2024-07-18] MEDS: Enoxaparin 40 MG/0.4 ML SYR SC (19:12)
[2024-07-18] MEDS: Latanoprost 0.005% 2.5 ML BTL OP (19:31)
[2024-07-19] MEDS: HYDROmorphone 2 MG TAB 1 MG PO ×4 (01:49→19:36)
[2024-07-19] MEDS: Lactulose 20 GM/30 ML CUP 30 GM PO ×3 (07:19→19:37)
[2024-07-19] MEDS: Cyanocobalamin 500 MCG TAB PO (07:20)
[2024-07-19] MEDS: Pantoprazole 40 MG TABCR PO (07:20)
[2024-07-19] MEDS: Cholecalciferol (Vitamin D3) 1,000 UNIT TAB 1000 UNITS PO (07:20)
[2024-07-19] MEDS: Multivitamin TAB 1 TAB PO (07:20)
[2024-07-19] MEDS: Atorvastatin 20 MG TAB PO (07:20)
[2024-07-19] MEDS: Lisinopril 10 MG TAB PO (07:21)
[2024-07-19] MEDS: Bimatoprost 0.01% 2.5 ML BTL OP (07:24)
[2024-07-19 07:48] VITALS: BP 158/70; PULSE 65; RESP 12; TEMP 37.2; O2SAT 96
--- NOTE | 2024-07-19 09:03 | PT.INTREAT ---
PT Notes Visit Reasons: Encephalopathy Physical Therapy Inpatient Treatment Note Date: 07/19/2024 Precautions: Fall. Standard. Per Dr. Borjas of [facility] [place] orthopedics as of 07/06/2024: NWB thorugh the L LE with AD. Subjective: Moved to room 229 in med surg from the ICU last night. More alert and engageable this morning. L leg remains hurting especially with palpation and movement. Gregor Mejia available in room and will get patient's scooter from home and bring device at lunch today. Nurse Kahn premedicated patient Objective: General Observation: Fiberglass splint on L leg and foot. Telemetry monitoring in place. Rosario catheter in place. Mental Status: Alert and oriented as to person, place, and purpose. Moderately able to pay attention, focus, and respond appropriately. Pain: 5/10 in the L ankle that did not increase with WB Vital Signs: Closely monitored by nursing staff Bed Mobility/Transfers: Moderate cueing provided for use of B hands as needed for support, movement sequence, AD management, and posture to reduce fall risk and minimize pain report Rolling minimal assist assist of 2 Supine to sit minimal assist of 2 with HOB at 30 degrees Sit to stand minimal assist of 2 Stand to sit minimal assist assist of 2 Bed to chair moderate assist of 2 Gait: Able to gently hop from bedside recliner to edge of bed using FWW with moderate assist of 2 with some weight bearing through L LE for balance with pain reported at 5/10 in the L ankle/leg. No further ambulation was done due to WB restriction and pain report. Stairs: DEFERRED due to safety reasons, impaired level of alertness, and WB precautions Balance: Static Sitting: Normal Dynamic Sitting: Normal Static Standing: Poor Dynamic Standing: Unable to test Assessment: Pain level, functional mobility decline, and weight bearing restriction all compromise patient's safety and increase his risk for falls at home. He therefore has limited ability to thrive alone safely at home and will need detention facility placement for continued strengthening, balance retraining, and functional mobility skilling. Patient with bimalleolar fracture of L ankle sustained from a mechanical fall outside of his house and a pre-existing L mid clavicular fracture. Alonzo is admitted for management of acute hepatic encephalopathy, stage 5 liver cancer, HTN, ETOH use disorder, anemia, and bradycardia. Per Dr. Borjas of [facility] [place] orthopedics, patient is NWB through L LE. Patient currently has impaired level of alertness, high pain level through L LE at rest, and WB restriction which continue to compromise safety and limit mobility performance. He is at high risk for falls, further functional decline, and physical deconditioning and will require continued rehabilitation. Plan of Care/Treatment Plan: Patient will highly benefit from skilled physical therapy services including functional mobility training, bed mobility/transfer training, gait and balance training, therapeutic exercises, therapeutic activity, caregiver/staff/family education and training 1x/day, 7 days/week x 1 week. Plan of care has been reviewed with the YARN BLEACHING MACHINE OPERATOR providing the service under Physical Therapy direction. Initiate Physical Therapy intervention for strengthening, bed mobility, transfers, gait, stairs, balance training, use of assistive device. DISCHARGE RECOMMENDATIONS: [] Home with no services [] [] Home with services [] [] Home with outpatient PT [] [X] SNF for continued rehabilitation. Patient will benefit from detention facility placement for continued skilled physical therapy services in order to progress mobility level, strength, and balance in preparation for a safe discharge to home. [] Claims Adjuster Supervisor Care [] [] SNF versus LTC based on ability to participate and progress [] TREATMENT CODE/TIME: 46900 x 30 minutes for 2 units (09:03-09:33).
--- NOTE | 2024-07-19 10:04 | PDOC.CMPRO ---
Date of service: 07/19/24 Time of Service: 10:04 Care Management Progress Note Progress Note Text Progress Note Text: Dong was sitting in his chair when CM arrived. Dong was moved to med/surg and appeared to be much more awake and alert. Per PT, STR would be beneficial for Dong. CM provided education surrounding STR as he was previously feeling hesitant on going. Referrals are sent to [facility] and [facility] with Dong's permission. Dong continues to be supported by his friends and visitors. Dong will receive a mental health and palliative consult. Discharge Potential Discharge Needs: PCP F/U Appt Anticipated Barriers to Discharge: Medical Status Patient/Family Education Needs: Review discharge instructions, discuss Ask Me Three Transportation: Private vehicle (Partners/friends) Plan: Anticipate Dong will be discharged to SNF ([facility] and [facility] referrals pending) prior to going home. He will follow up with his PCP, and continue per his plan of care. He is awaiting a palliative consult and mental health consult recommended. He will likely transport via private vehicle when medically ready. CM will continue to follow. Social Determinants of Health Screening Will the Patient Participate in the Screening?: Declined to provide
--- NOTE | 2024-07-19 10:41 | PGE_ITS ---
Date of Service Date of service: 07/19/24 Time of Service: 10:41 Assessment and Plan Assessment and plan (1) Encephalopathy acute: Status: Acute Assessment and plan: -Teleneurology note reviewed from admission -No focal findings on CTA or MRI to explain presenation -likely due to hepatic encephalopathy given history of cirrhosis and s/p TIPS, as well as slow improvment with lactulose -Unable to do paracentesis to rule out SBP, continue ceftriaxone for now -No other signs of infection on exam/imaging/labs -was on OK lactulose, now on PO which will be continued -was on precedex which has been discontinued since AM 07/17 (2) Cirrhosis: Status: Chronic Assessment and plan: -overall his cirrhosis has not decompensated, though he is still at risk of encephalopathy -Continue to monitor, get INR (3) Hypertension: Status: Resolved Assessment and plan: -BP had been high but in setting of agitation -BPs now 120-160's systolic (4) Alcohol use disorder in remission: Assessment and plan: -stable in remission, EtOH levels on admission negative. -give IV thiamine just in case, levels wouldn't come back quickly (5) Anemia: Assessment and plan: -mild, follow (6) Bimalleolar fracture of left ankle: Status: Acute Assessment and plan: -no apparent complications to surgery. -Continue wound care. (7) Bradycardia: Status: Acute Assessment and plan: -occured while on precedex drip, now improved since it has been discontinued (8) DVT prophylaxis: Status: Resolved Assessment and plan: enoxaparin Subjective Subjective Interval history since last seen: Patient states that he is doing well today and is feeling strong. He appears to understand the importance of discharging to [facility] in order to continue to regain his strength and independence before going home. Otherwise he has no complaints or concerns at this time. Exam Narrative Exam Narrative: Chronically ill-appearing older gentleman sitting up in the chair in no acute distress, awake alert, oriented x 4, lungs with coarse upper airway breath sounds but with good air movement bilaterally, abdomen soft, nontender, nondistended Objective Last Vital Signs Temp 99.0 F 07/19/24 07:48 Pulse 65 07/19/24 07:48 Resp 12 07/19/24 07:48 BP 158/70 H 07/19/24 07:48 Pulse Ox 96 07/19/24 07:48 Laboratory Results - last 24 hr 07/19/24 01:32 Stl C.difficile Tox PCR Cancelled C.difficile [id number] Cancelled Time Spent with Patient Time Spent with Patient: >50 minutes Time was spent: preparing to see the patient(eg.review tests), obtaining and/or reviewing separately otained hiistory, ordering medications,tests, procedures, referring, communicating with other health field care manager, indepentently int erpreting results, counseling the patient and care coordination
[2024-07-19 11:20] VITALS: BP 116/54; PULSE 76; RESP 12; TEMP 36.7; O2SAT 97
--- NOTE | 2024-07-19 13:53 | PTTR_ITS ---
PT Notes Visit Reasons: Encephalopathy Physical Therapy Inpatient Treatment Note (Afternoon Session) Date: 07/19/2024 Precautions: Fall. Standard. [place] [facility] [place]06/[place]24: NWWilfredo thorugh the L LE with AD. Subjective: Had a great lunch. Still reported pain in L leg and foot with movement. [place] much better with use f his knee scooter that his friend brought in from home. Nurse Femi gave patient his pain medication before PT came in. Forgot the fact that PT met his friend Roberto already yesterday and this morning, wondering when and how this provider knew of his friend. Unsure how he would be able to hop 13 steps t gert into his house. Considers going to a SNF until he is back to moving on his own. Objective: General Observation: Fiberglass splint on L leg and foot. Telemetry monitoring in place. Rosario catheter in place. Mental Status: Alert and oriented as to person, place, and purpose. Moderately able to pay attention, focus, and respond appropriately. Pain: 5/10 in the L ankle that did not increase with WB Vital Signs: Closely monitored by nursing staff Bed Mobility/Transfers: Moderate cueing provided for use of B hands as needed for support, movement sequence, AD management, and posture to reduce fall risk and minimize pain report Rolling minimal assist assist Supine to sit minimal assist Sit to stand minimal assist Stand to sit minimal assist assist Bed to chair moderate assist Gait: Covered 120 feet + 150 feet using his knee scooter with minimal assist and moderate verbal cueing for safe transfer onto knee pad of scooter and for posture. Stairs: DEFERRED due to safety reasons, impaired level of alertness, and WB precaut ions Balance: Static Sitting: Normal Dynamic Sitting: Normal Static Standing: Poor Dynamic Standing: Unable to test Assessment: Patient required moderate verbal cueing for task sequencing, safety techniques, and transfer surface transition as using his knee scooter. NWB through L LE. Contiues to demonstrate impaired safety perfomance and awareness that can increase fall risk alone at home. Pain level, functional mobility decline, and weight bearing restriction all compromise patient's safety and increase his risk for falls at home. He therefore has limited ability to thrive alone safely at home and will need [facility] facility placement for continued strengthening, balance retraining, and functional mobility skilling. Knee pad and arm handle height of scooter adjusted to ensure optimized posture and mobility performance. May walk with nursing staff in the hallway with minial assist of 1. Plan of Care/Treatment Plan: Patient will highly benefit from skilled physical therapy services including functional mobility training, bed mobility/transfer training, gait and balance training, therapeutic exercises, therapeutic activity, caregiver/staff/family education and training 1x/day, 7 days/week x 1 week. Plan of care has been reviewed with the LAUNCH MANAGER providing the service under Physical Therapy direction. Initiate Physical Therapy intervention for strengthening, bed mobility, transfers, gait, stairs, balance training, use of assistive device. DISCHARGE RECOMMENDATIONS: [] Home with no services [] [] Home with services [] [] Home with outpatient PT [] [X] SNF for continued rehabilitation. Patient will benefit from [facility] facility placement for continued skilled physical therapy services in order to progress mobility level, strength, and balance in preparation for a safe discharge to home. [] Social Service Agency Director Care [] [] SNF versus LTC based on ability to participate and progress [] TREATMENT CODE/TIME: 05257 x 44 minutes for 2 units (09:03-09:33).
[2024-07-19] MEDS: cefTRIAXone 2 GM/50 ML BAG IVPB (14:04)
--- NOTE | 2024-07-19 15:09 | CHAPLAIN ---
Dong was up in the recliner when I visited. He was pleasant and right away told me he's here because he has encephalopathy of his brain. He also has an ankle injury. Dong's main concern is that the hospitalist is suggesting he go to a SNF before going home and he doesn't want to do that. He said he needs to think about it and pray about it. There is concern that he can't care for himself at home. He said he maybe be able to pay his partner, Najma, to stay with him and care for him. She lives in [place]. Dong lives in [facility]. Dong has six years of sobriety and he is part of the AA program and attends meetings. He identified Najma and his friends from AA as his main supports. You never know how many friends you have, until you need help, he told me explaining that this friends from AA have been in touch and offering support. Although Dong is not connected to a william community, he prays regularly and participates in other Methodist rituals, he said.
[2024-07-19 15:52] VITALS: BP 133/59; PULSE 67; RESP 16; TEMP 37.2; O2SAT 95
[2024-07-19 19:32] VITALS: BP 136/55; PULSE 80; RESP 18; TEMP 37.8; O2SAT 96
[2024-07-19] MEDS: Enoxaparin 40 MG/0.4 ML SYR SC (19:35)
[2024-07-19] MEDS: Latanoprost 0.005% 2.5 ML BTL OP (19:35)
[2024-07-19] MEDS: Normal Saline Flush 10 ML SYR IVP (19:37)
[2024-07-19] MEDS: Acetaminophen 325 MG TAB 650 MG PO (23:07)
[2024-07-20] MEDS: HYDROmorphone 2 MG TAB 1 MG PO ×4 (00:11→18:44)
[2024-07-20 03:30] VITALS: BP 154/69; PULSE 67; RESP 18; O2SAT 97
[2024-07-20] MEDS: Acetaminophen 325 MG TAB 650 MG PO (05:07)
[2024-07-20 07:43] VITALS: BP 138/66; PULSE 64; RESP 20; TEMP 37; O2SAT 93
--- NOTE | 2024-07-20 08:28 | PTTR_ITS ---
PT Notes Visit Reasons: Encephalopathy Physical Therapy Inpatient Treatment Note Date: 07/20/2024 Precautions: Fall. Standard. Per Dr. Borjas [place] [facility] [place] as of 07/06/2024: NWB thorugh the L LE with AD. Subjective: Unhappy about his rectal tube and was excited when Nurse Francia said that they were to take said tube out after the session. Objective: General Observation: Fiberglass splint on L leg and foot. Telemetry monitoring in place. Rosario catheter in place. Mental Status: Alert and oriented as to person, place, and purpose. Moderately able to pay attention, focus, and respond appropriately. Pain: 3-4/10 in the L ankle that did not increase with WB Vital Signs: Closely monitored by nursing staff Bed Mobility/Transfers: Maximal cueing provided for use of B hands as needed for support, movement sequence, AD management, and posture to reduce fall risk and minimize pain report Supine to sit stand by assist Sit to stand stand by assist Stand to sit stand by assist Bed to chair stand by assist Gait: Covered 850 feet using his knee scooter with stand by assist. Patient's impulsivity is worsening requiring maximal verbal cueing to ensure compliance with weight bearing precaution. Stairs: Will plan on initiating stair negotiation training for this afternoon's session. In the PM, observed and provided stand by assist for patient and PARVEEN Murdock as they attempted medsurg stairs negotiation. Patient was putting more weight onto L LE than he should throughout despite cueing not to. He was impulsive and at high risk for fall recurerence. Balance: Static Sitting: Normal Dynamic Sitting: Normal Static Standing: Poor Dynamic Standing: Unable to test due to WB precaution AFTERNOON SESSION: After PARVEEN Murdock saw patient for the afternoon session, patient was assisted to the toilet for a bowel movement. Patient demonstrated high impulsivity requring maximal cueing to NOT leave knee scooter outside of room. He also was strongly advised to refrain from inadvertently putting weight on his L LE during transfers. Assessment: Becoming highly impulsive requiring maximal verbal cueing for task sequencing, safety techniques, and transfer surface transition as using his knee scooter. NWB through L LE. Continues to demonstrate impaired safety performance and awareness that can increase fall risk alone at home. Pain level, functional mobility decline, and weight bearing restriction all compromise patient's saf ety and increase his risk for falls at home. He therefore has limited ability to thrive alone safely at home and will need retirement facility placement for continued strengthening, balance retraining, and functional mobility skilling. May walk with nursing staff in the hallway with minial assist of 1. Plan of Care/Treatment Plan: Patient will highly benefit from skilled physical therapy services including functional mobility training, bed mobility/transfer training, gait and balance training, therapeutic exercises, therapeutic activity, caregiver/staff/family education and training 1x/day, 7 days/week x 1 week. Plan of care has been reviewed with the PRODUCT SPECIALIST providing the service under Physical Therapy direction. Initiate Physical Therapy intervention for strengthening, bed mobility, transfers, gait, stairs, balance training, use of assistive device. DISCHARGE RECOMMENDATIONS: [] Home with no services [] [] Home with services [] [] Home with outpatient PT [] [X] SNF for continued rehabilitation. Patient will benefit from retirement facility placement for continued skilled physical therapy services in order to progress mobility level, strength, and balance in preparation for a safe discharge to home. [] Vice President Of Human Resources Care [] [] SNF versus LTC based on ability to participate and progress [] TREATMENT CODE/TIME: Session1--48345 x 25 minutes for 2 units (08:28-08:53). Session2--[id number] x 15 minutes for 1 unit (14:19-14:44).
[2024-07-20] MEDS: Lactulose 20 GM/30 ML CUP 30 GM PO ×3 (08:48→20:23)
[2024-07-20] MEDS: Cholecalciferol (Vitamin D3) 1,000 UNIT TAB 1000 UNITS PO (08:49)
[2024-07-20] MEDS: Pantoprazole 40 MG TABCR PO (08:49)
[2024-07-20] MEDS: Atorvastatin 20 MG TAB PO (08:49)
[2024-07-20] MEDS: Multivitamin TAB 1 TAB PO (08:50)
[2024-07-20] MEDS: Lisinopril 10 MG TAB PO (08:50)
[2024-07-20] MEDS: Cyanocobalamin 500 MCG TAB PO (08:50)
[2024-07-20] MEDS: Normal Saline Flush 10 ML SYR IVP ×4 (08:58→20:24)
[2024-07-20] MEDS: Bimatoprost 0.01% 2.5 ML BTL OP (09:06)
--- NOTE | 2024-07-20 11:12 | W.PALLCONSUL ---
Date of service: 07/20/24 Time of Service: 11:14 History of Present Illness Narrative: Alonzo was seen in his room at the hospital. His girlfriend of 6 month, Najma, was present for the visit. Najma lives in [place], [place]. He reports that he is an alcoholic and has been sober x6 years. He also reports Hx of Liver ca for which he underwent radiation. He reports that the tumor was no present on imaging as of June 2024. Reviewed CODE status- He is clear he is a DNR/DNI. COLST completed. Reviewed AD- He prefers to change his HCA to [facility]. New HCA form completed. He has been working with PT. The plan is for him to discharge to rehab prior to returning home. Alonzo will benefit from ongoing Palliative care to continue to discuss GOC and assist with decision making/Sx management in the future. Assessment and Plan Assessment and plan (1) Encephalopathy acute: Status: Acute Assessment and plan: Improving. (2) Cirrhosis: Status: Chronic Assessment and plan: -overall his cirrhosis has not decompensated, though he is still at risk of encephalopathy (3) Hypertension: Status: Resolved Assessment and plan: -BPs now 120-160's systolic (4) Alcohol use disorder in remission: Assessment and plan: -stable in remission, ETOH levels on admission negative. He reports that he has been sober x6 years. He attends AA and has sponsor. (5) Anemia: (6) Bimalleolar fracture of left ankle: Status: Acute Assessment and plan: S/p surgery at [facility]. (7) Bradycardia: Status: Acute Assessment and plan: Improved with discontinuation of precedex drip. (8) Advanced care planning/counseling discussion: Status: Acute Assessment and plan: Alonzo was seen in his hospital room with his girlfriend, Najma present. He was seen for initial Palliative consultation. Reviewed CODE status- He is clear he is a DNR/DNI. COLST completed. Reviewed AD- He prefers to change his HCA to [facility]. New HCA form completed. He has been working with PT. The plan is for him to discharge to rehab prior to returning home. Alonzo will benefit from ongoing Palliative care to continue to discuss GOC and assist with decision making/Sx management in the future. F/u outpatient in 2 months. (9) Palliative care patient: Status: Acute Review of Systems Narrative: Feeling better, does not recall coming into the hospital due to encephalopathy. PFSH All Active Problems (Updated 07/20/24 @ 12:34 by Cleopatra Ayala NP) Palliative care patient (Acute) Advanced care planning/counseling discussion (Acute) Bradycardia (Acute) SBP (spontaneous bacterial peritonitis) (Acute) Acute encephalopathy (Acute) Hyperammonemia (Acute) Closed fracture of left distal fibula (Acute) Bimalleolar fracture of left ankle (Acute ~06/28/24) Numbness of right hand (Acute) Peripheral neuropathy (Acute) Encephalopathy acute (Acute) Right carpal tunnel syndrome (Acute) Duodenitis (Acute) Liver mass, left lobe (Acute) 2.6 cm bx at [facility] on 02/06 Cholelithiasis (Acute) Gastritis (Acute) Esophageal reflux (Chronic) Left rotator cuff tear (Acute) Gallstones (Chronic) Cirrhosis (Chronic) Medical History (Updated 07/20/24 @ 12:34 by Cleopatra Ayala NP) Alcohol use disorder in remission Esophagitis Duodenal ulcer disease Esophageal varices Melena Nausea & vomiting Hx of caloric malnutrition Anemia Drug abuse Left inguinal hernia Hepatitis C Fully treated Hx of non-insulin dependent diabetes mellitus Hx of pneumothorax History of rib fracture Hx of fracture of clavicle Scoliosis Hepatic encephalopathy Pancytopenia Red blood cell antibody positive with compatible PRBC difficult to obtain History of GI bleed variceal Surgical History S/P TIPS (transjugular intrahepatic portosystemic shunt) Has ultrasound done every 6 months last done 09/2023 Hx of basal cell carcinoma excision Hx of Achilles tendon repair History of esophagogastroduodenoscopy (EGD) (~01/16/20) multiple Previous back surgery Sanchez siva placement 1972 and then removal 1980 S/P hernia repair S/P shoulder surgery Family History Mother Breast cancer Sister Breast cancer Heart disease Diabetes Sister Breast cancer Hypertension Brother Cancer leukemia Brother Heart disease Diabetes Hypertension Maternal Grandmother Heart disease Father Diabetes Hypertension Social History Smoking/Tobacco Use Status: Never Smoking risk assessment performed?: Yes Alcohol Intake: former Year quit: 2019 Drug use: Current Sobriety Substance use type: does not use and former substance user Details: 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 He is awake, alert, oriented. He engages in the visit and answers questions appropriately. HEENT: normocephalic, atraumatic, EOMI, mmm Neck: supple. Respiratory: respirations appear even and unlabored at rest and with talking. Ext: moves all 4 extremities, splint to LLE. Results Last Vital Signs Temp 37.0 C 07/20/24 07:43 Pulse 64 07/20/24 07:43 Resp 20 07/20/24 07:43 BP 138/66 07/20/24 07:43 Pulse Ox 93 07/20/24 07:43 Labs 07/18/24 05:27 07/18/24 05:27 Time Spent Time Spent with Patient Time Spent(min): 50
[2024-07-20 12:09] VITALS: BP 139/59; PULSE 62; RESP 16; TEMP 37; O2SAT 96
--- NOTE | 2024-07-20 12:38 | PGE_ITS ---
Date of Service Date of service: 07/20/24 Time of Service: 12:38 Assessment and Plan Assessment and plan (1) Encephalopathy acute: Status: Acute Assessment and plan: -Teleneurology note reviewed from admission -No focal findings on CTA or MRI to explain presenation -likely due to hepatic encephalopathy given history of cirrhosis and s/p TIPS, as well as slow improvment with lactulose -Unable to do paracentesis to rule out SBP, continue ceftriaxone for now -No other signs of infection on exam/imaging/labs -was on NM lactulose, now on PO which will be continued -was on precedex which has been discontinued since AM 07/17 (2) Cirrhosis: Status: Chronic Assessment and plan: -overall his cirrhosis has not decompensated, though he is still at risk of encephalopathy -Continue to monitor, get INR (3) Hypertension: Status: Resolved Assessment and plan: -BP had been high but in setting of agitation -BPs now 120-160's systolic (4) Alcohol use disorder in remission: Assessment and plan: -stable in remission, EtOH levels on admission negative. -give IV thiamine just in case, levels wouldn't come back quickly (5) Anemia: Assessment and plan: -mild, follow (6) Bimalleolar fracture of left ankle: Status: Acute Assessment and plan: -no apparent complications to surgery. -Continue wound care. (7) Bradycardia: Status: Acute Assessment and plan: -occured while on precedex drip, now improved since it has been discontinued (8) DVT prophylaxis: Status: Resolved Assessment and plan: enoxaparin Subjective Subjective Interval history since last seen: Patient states that he is doing well and understands we are working on [facility] placement. Exam Narrative Exam Narrative: Chronically ill-appearing older gentleman sitting up in the chair in no acute distress, awake alert, oriented x 4, lungs with coarse upper airway breath sounds but with good air movement bilaterally, abdomen soft, nontender, nondistended Objective Last Vital Signs Temp 98.6 F 07/20/24 12:09 Pulse 62 07/20/24 12:09 Resp 16 07/20/24 12:09 BP 139/59 L 07/20/24 12:09 Pulse Ox 96 07/20/24 12:09 Time Spent with Patient Time Spent with Patient: >50 minutes Time was spent: preparing to see the patient(eg.review tests), obtaining and/or reviewing separately otained hiistory, ordering medications,tests, procedures, referring, communicating with other health care coordination manager, indepentently interpreting results, counseling the patient and care coordination
--- NOTE | 2024-07-20 13:58 | PTTR_ITS ---
PT Notes Visit Reasons: Encephalopathy Date: 07/20/2024 PRECAUTIONS: Per Dr. Borjas of [facility] orthopedics as of 07/06/2024: JASON simmons the L LE with AD. SUBJECTIVE: Pt in bed when approached for therapy this afternoon, agreed to participating with therapy session OBJECTIVE: ? PAIN: 07/19 LLE VITALS: Monitored by nursing ? Therapeutic Activities 49697: Direct one-on-one instruction in dynamic activities to improve functional performance. ?? BED MOBILITY/TRANSFERS? Rolling L/R: independent Supine-sit: ?independent? Sit-supine: independent? Sit-stand: independent ? Stand-sit: independent? Bed-Chair:?independent? Chair-bed: independent Provided skilled cues and instruction on performance and technique throughout. Gait Training 78707: Direct one-on-one instruction and skilled instruction in: Employing an assistive device Modified weight-bearing status Movement sequencing Turning and movement with proper form Provided verbal cues for equipment management and technique Provided instruction in gait pattern Patient education regarding pacing and breathing techniques to maximize activity tolerance? GAIT? Assistive Device: ?Knee Scooter? Weight bearing: NWB LLE Assist: ?SBA ? Distance:??300'x2? Deviation: ? With knee scooter pt is able to propel with right foot? STAIRS:? ?4 step hop to x6 steps, 6 step ?hop to x4, facility step 12 steps hop to bilateral handrail min A ? ASSESSMENT:?Pt tolerated activity well, pt requires safety cues verbally and tactile during stair negotiation training and transfer training due to pt impulsivity.. PLAN: Continue with balance training, global strengthening and general conditioning for improved safety, mobility and activity tolerance until pt is ready for DC. TREATMENT CODE/TIME: [id number] 38mins (1:30-2:08pm)
[2024-07-20] MEDS: cefTRIAXone 2 GM/50 ML BAG IVPB (13:59)
--- NOTE | 2024-07-20 15:39 | CMPROGNOTE_ITS ---
Date of service: 07/20/24 Time of Service: 15:39 Care Management Progress Note Progress Note Text Progress Note Text: Dong was lying in bed, while visiting with his friend (Roberto). CM is in communication with admissions at [facility], who is attempting to obtain a PA in order for him to be accepted for short term rehab. Per Dong, he is feeling much better and is hopeful that rehab will help him. He stated that he is glad he can go to rehab, as he doesn't feel he can successfully be safe alone at his current functional status. Dong stated that he is no longer feeling any SI, CM contacted mental health to do a screening and supported him throughout the screening. [facility] cleared Dong and together they created a safety plan. Discharge Potential Discharge Needs: PCP F/U Appt Anticipated Barriers to Discharge: Bed availability Patient/Family Education Needs: Review discharge instructions, discuss Ask Me Three Transportation: Private vehicle (Friends or Najma ) Plan: Anticipate Dong will be discharged to SNF ([facility] declined and [facility] referral is pending). He will follow up with his facility providers, and continue per his plan of care. He is awaiting a mental health consult is ordered. He will likely transport via private vehicle when medically ready. CM will continue to follow. MH Services (Omit if N/A) Current MH Services: [facility] (Mental Health consult) Referred to Internal [facility] (ED embedded) machine adjuster leader case trim?: Yes Social Determinants of Health Screening Will the Patient Participate in the Screening?: Declined to provide
[2024-07-20 15:49] VITALS: BP 136/61; PULSE 66; RESP 20; TEMP 37.3; O2SAT 98
--- NOTE | 2024-07-20 17:33 | CHAPLAIN ---
Dong was having dinner when I visited. He had just finished a telehealth visit with someone from [facility]. Dong said he's agreed to go to a rehab to get stronger and is waiting to hear where he's accepted. He's ammonia levels are still high, he said so he thinks he'll be here a few more days. Dong was interested in knowing what the hospital's role in the [facility] and the Dr. René Mackay is. ([facility] owns the building.) Dong is involved with AA at the [facility] and said he thinks the [facility] could use more support. He's on a committee planning a celebration for the 80th anniversary of AA in [facility] in April. I told him that I would take his concerns to Ariana Evans, our FURNACE PACKER of [facility]. l
--- NOTE | 2024-07-20 18:33 | PDOC.MHCN ---
Date of service: 07/20/24 Time of Service: 18:33 PHQ-9 Over the last 2 weeks, how often have you been bothered by any of the following problems? 1. Little interest or pleasure in doing things: not at all 2. Feeling down, depressed, or hopeless: nearly every day 3. Trouble falling or staying asleep, or sleeping too much: nearly every day 4. Feeling tired or having little energy: several days 5. Poor appetite or overeating: not at all 6. Feeling bad about yourself - or that you are a failure or have let yourself and your family down: several days 7. Trouble concentrating on things, such as reading the newspaper or watching television: more than half the days 8. Moving or speaking so slowly that other people could have noticed? - Or the opposite - being so fidgety or restless that you have been moving around a lot more than usual: several days 9. Thoughts that you would be better off or of hurting yourself in some way: several days Total score: 12 If you checked off any problems, how difficult have these problems made it for you to do your work, take care of things at home, or get along with other people?: extremely difficult Source: Developed by Drs. Blake Roach, Anjelica Moss, Fausto Forrest and colleagues, with an educational lucius from [employer]. Suicide Severity Rate CSSRS Have you wished you were or wished you could go to sleep and not wake up?: Yes Have you actually had any thoughts of killing yourself?: Yes CSSRS2 Have you been thinking about how you might do this?: No Have you had these thoughts and had some intention of acting on them?: Yes Have you started to work out or worked out the details of how to kill yourself? Do you intend to carry out this plan?: No CSSRS3 Have you ever done anything, started to do anything or prepared to do anything to end your life?: Yes CSSRS4 Was this within the past three months?: No Screening Score Total Score: 6 Screening: Positive Mental Health Emergency Note Release [facility] release signed:: Yes Reason for Visit The client is previously known to [facility]. He has not been a client since the beginning of this EMR program. He has been hospitalized before while living in [place]. The client has been assessed before and was at [facility] in 2007 and 2019 for SI. The client denied any current treatment providers outside of his PCP, George Lou with [facility]. [facility] requested an evaluation for the client as while he was in ICU he had made some suicidal statements and even though after moving into [facility] he had no longer had thoughts they need to have an assessment to fully clear him. In the last 2 weeks has the pt presented for ES prior to today?: Yes, presented at Client Information Client is: New Non Suicidal Self Injury Current: No History: No Safety Risk/Harm to Self or Others Current Ideation to Harm Self or Others: No Risk: Does risk to harm exist?: No Risk: Low Risk Duty to warn indicated: No Asssessment/Mental Status Appearance: Disheveled Attitude: Cooperative and Friendly Behavior: Unremarkable Speech: Normal Affect: Normal Mood: Happy Thought process: Unremarkable Hallucinations: No Delusions: No Attention: Unremarkable Perception: Not impaired Orientation: Fully orientated Memory: Intact Insight: Good Judgement: Good Neurovegetative Symptoms Sleep: Decrease (Due to medical issues/pain ) Appetitie: No change Interests: No change Energy: No change Libido: Not applicable Substance Use: Do you use nicotine?: No Have you used substances in the last 7 days?: No Additional Issues: Assaultive/Threatening Behavior: No Medical Concerns: No Client engaged in active self harm w/weapon: No Threatening to run away: No Child reported abuse/neglect: No Voluntarily presenting for services: Yes Domestic violence is a concern: No Extreme Psychosis or extreme behavior is present: No Impression The client has a 69-year-old Mill, who lives independently in [place], [place]. Per his report, he is still employed by [employer]. The client identifies as a heterosexual and uses he him pronouns all underrepresented. identifiers were honored during this assessment. The client does not deny making statements that he has had enough and it's been a bad year while in ICU. The client shared numerous different stressors relating to his medical issues and feeling hopeless as a result. The client is showing good insight and judgment, and his thought process is linear. He reports his appetite is good, his sleep is poor, however, relates this to his current broken ankle, which is causing him a great deal of pain. The client shows no signs of hallucinations or delusions. He is future oriented. Resources Reosurces reviewed and given:: 988 and [facility] Plan/Disposition Recommended Disposition: [facility] Services [facility] Services: Other. Plan: The client engaged in the safety plan to include a checking call on Tuesday around 6:00 PM to let us know how he is doing. The client is futuristic. The client does not need criteria for an inpatient hospitalization or any higher level of care at this time. The client was informed of 988 as well as [facility] as needed to support him when in crisis. Person reported agreement to plan: Yes Reports/communication Outcome discussed with: ED/Personnel
[2024-07-20 19:33] VITALS: BP 153/64; PULSE 77; RESP 19; TEMP 36.1; O2SAT 94
[2024-07-20] MEDS: Enoxaparin 40 MG/0.4 ML SYR SC (20:23)
[2024-07-20] MEDS: Latanoprost 0.005% 2.5 ML BTL OP (20:24)
[2024-07-20 23:12] VITALS: BP 163/71; PULSE 61; RESP 19; TEMP 37.1; O2SAT 98
[2024-07-21] MEDS: HYDROmorphone 2 MG TAB 1 MG PO ×2 (00:28→06:19)
[2024-07-21 03:33] VITALS: BP 162/69; PULSE 66; RESP 19; TEMP 36.9; O2SAT 96
[2024-07-21 07:40] VITALS: BP 153/97; PULSE 64; RESP 16; TEMP 37.6; O2SAT 97
[2024-07-21] MEDS: Cholecalciferol (Vitamin D3) 1,000 UNIT TAB 1000 UNITS PO (07:42)
[2024-07-21] MEDS: Pantoprazole 40 MG TABCR PO (07:42)
[2024-07-21] MEDS: Cyanocobalamin 500 MCG TAB PO (07:43)
[2024-07-21] MEDS: Atorvastatin 20 MG TAB PO (07:43)
[2024-07-21] MEDS: Multivitamin TAB 1 TAB PO (07:43)
[2024-07-21] MEDS: Lactulose 20 GM/30 ML CUP 30 GM PO ×3 (07:44→19:24)
[2024-07-21] MEDS: Lisinopril 10 MG TAB PO (07:44)
[2024-07-21] MEDS: Normal Saline Flush 10 ML SYR IVP ×4 (07:45→19:25)
--- NOTE | 2024-07-21 09:20 | PGE_ITS ---
Date of Service Date of service: 07/21/24 Time of Service: 09:20 Assessment and Plan Assessment and plan (1) Encephalopathy acute: Status: Acute Assessment and plan: -Teleneurology note reviewed from admission -No focal findings on CTA or MRI to explain presenation -likely due to hepatic encephalopathy given history of cirrhosis and s/p TIPS, as well as slow improvment with lactulose -Unable to do paracentesis to rule out SBP, continue ceftriaxone for now -No other signs of infection on exam/imaging/labs -was on WI lactulose, now on PO which will be continued -was on precedex which has been discontinued since AM 07/17 (2) Cirrhosis: Status: Chronic Assessment and plan: -overall his cirrhosis has not decompensated, though he is still at risk of encephalopathy -Continue to monitor, get INR (3) Hypertension: Status: Resolved Assessment and plan: -BP had been high but in setting of agitation -BPs now 120-160's systolic (4) Alcohol use disorder in remission: Assessment and plan: -stable in remission, EtOH levels on admission negative. -give IV thiamine just in case, levels wouldn't come back quickly (5) Anemia: Assessment and plan: -mild, follow (6) Bimalleolar fracture of left ankle: Status: Acute Assessment and plan: -no apparent complications to surgery. -Continue wound care. (7) Bradycardia: Status: Acute Assessment and plan: -occured while on precedex drip, now improved since it has been discontinued (8) DVT prophylaxis: Status: Resolved Assessment and plan: enoxaparin Subjective Subjective Interval history since last seen: Patient states that he is doing well and has no complaints or concerns at this time. Exam Narrative Exam Narrative: Chronically ill-appearing older gentleman sitting up in the chair in no acute distress, awake alert, oriented x 4, lungs with coarse upper airway breath sounds but with good air movement bilaterally, abdomen soft, nontender, nondistended Objective Last Vital Signs Temp 99.7 F H 07/21/24 07:40 Pulse 64 07/21/24 07:40 Resp 16 07/21/24 07:40 BP 153/97 H 07/21/24 07:40 Pulse Ox 97 07/21/24 07:40 Time Spent with Patient Time Spent with Patient: >50 minutes Time was spent: preparing to see the patient(eg.review tests), obtaining and/or reviewing separately otained hiistory, ordering medications,tests, procedures, referring, communicating with other health critical care clinical nurse specialist, indepentently interpreting results, counseling the patient and care coordination
[2024-07-21] MEDS: Bimatoprost 0.01% 2.5 ML BTL OP (09:50)
--- NOTE | 2024-07-21 10:02 | PT.INTREAT ---
PT Notes Visit Reasons: Encephalopathy Physical Therapy Inpatient Treatment Note Date: 07/21/2024 Precautions: Fall. Standard. Per Dr. Borjas of [facility] [place]ics as of 07/06/2024: NWB thorugh the L LE with AD. Subjective: Feels much more present and in control today. Hopeful that he would be able to go home directly once dishcarged from here. Objective: General Observation: Fiberglass splint on L leg and foot. Telemetry monitoring in place. Rosario catheter in place. Mental Status: Alert and oriented as to person, place, and purpose. Moderately able to pay attention, focus, and respond appropriately. Pain: 3-4/10 in the L ankle that did not increase with WB Vital Signs: Closely monitored by nursing staff Bed Mobility/Transfers: Maximal cueing provided for use of B hands as needed for support, movement sequence, AD management, and posture to reduce fall risk and minimize pain report Supine to sit independent Sit to stand independent Stand to sit independent Bed to chair independent Gait: Covered 700 feet using his knee scooter with stand by assist. Patient's impulsivity is worsening requiring maximal verbal cueing to ensure compliance with weight bearing precaution. Stairs: Contact guard assist with navigation of 6 x 4-inch steps and 4 x 6-inch steps while holding onto B rails for support with better compliance/NWB on the L LE while hlding onto B rails. Balance: Static Sitting: Normal Dynamic Sitting: Normal Static Standing: Poor Dynamic Standing: Unable to test due to WB precaution THERA EX: Facilitated continued performance of chair push ups x 10, SLR to L x 10, Seated hip abduction x 10, and [id number] x 10 afer ambulation activity today. Assessment: Based on today's mobility performance and functional improvements, patient may be able to manage at home with caregiver support for instrumental ADLs of meal preparation, grocery shopping, and outdoor transport. by Much more focused and less impulsive today. Managed to safely transfer bed<>wheelchair and bed<>toilet using his knee scooter independently. Therefore was made independent in the room during the day. Nursing staff may supervise at night for safety. Patient may also navigate (nurses' station/short loop) hallway twice using his scooter and was given instruction to let nurse know that he will be moving just to make sure people watch out for him with distan supervision for safety. Plan of Care/Treatment Plan: Patient will highly benefit from skilled physical therapy services including functional mobility training, bed mobility/transfer training, gait and balance training, therapeutic exercises, therapeutic activity, caregiver/staff/family education and training 1x/day, 7 days/week x 1 week. Plan of care has been reviewed with the [employer] REPAIRER providing the service under Physical Therapy direction. Initiate Physical Therapy intervention for strengthening, bed mobility, transfers, gait, stairs, balance training, use of assistive device. DISCHARGE RECOMMENDATIONS: [] Home with no services [] [] Home with services [] [] Home with outpatient PT [] [] SNF for continued rehabilitation [] Intermediate Care [] [] SNF versus LTC based on ability to participate and progress [] [X] PT vs short-term SNF based on prgress towards goal TREATMENT CODE/TIME: 84029 x 25 minutes for 2 units, 84011 x 16 minutes for 1 unit (10:02-10:48).
[2024-07-21 11:40] VITALS: BP 126/56; PULSE 66; RESP 17; TEMP 37.4; O2SAT 94
[2024-07-21] MEDS: Acetaminophen 500 MG TAB PO ×2 (11:54→19:24)
[2024-07-21 12:27] LABS: HCT 29.5 % (40.0-50.0); HGB 10.6 g/dL (13.5-17.5); MCH 33.9 pg (27.0-33.0); MCHC 35.9 % (32.0-36.0); MCV 94 fL (80-95); MPV 8.4 fL (8.0-11.0); Platelet Count 132 10^3/uL (130-400); RBC 3.13 10^6/uL (4.36-5.78); RDW 13.5 % (11.8-14.1); RDW-SD 45.2 fL; WBC 3.11 10^3/uL (4.4-10.8)
[2024-07-21] MEDS: cefTRIAXone 2 GM/50 ML BAG IVPB (14:39)
[2024-07-21 14:42] VITALS: BP 139/58; PULSE 66; RESP 20; TEMP 36.5; O2SAT 95
--- NOTE | 2024-07-21 17:53 | NUR.NOTE ---
charting by Francia Ochoa LPN reviewed and in agreeance with this RN. Patient has been AxOx4 this shift which is major improvement from encephalopathic AMS previously. Patient was cleared by PT today to be independent with scooter and has been using it appropriately in room, NWB to LLE due to recent surgery. Soft cast in place, good CSM to L foot. Patient denies pain, all systems intact, loose stools due to lactulose, voiding, tolerating PO intake. Pending bed at [facility] and rehab. Patient resting at this time, call light in reach, bed low/locked.Nursing Note:
[2024-07-21] MEDS: Enoxaparin 40 MG/0.4 ML SYR SC (19:23)
[2024-07-21] MEDS: Latanoprost 0.005% 2.5 ML BTL OP (19:25)
[2024-07-21 19:46] VITALS: BP 136/60; PULSE 78; RESP 18; TEMP 37.1; O2SAT 96
[2024-07-21 23:24] VITALS: BP 155/59; PULSE 65; TEMP 36.8; O2SAT 96
[2024-07-22] MEDS: HYDROmorphone 2 MG TAB 1 MG PO ×2 (03:50→10:24)
[2024-07-22 05:26] VITALS: BP 185/74; PULSE 63; RESP 18; TEMP 36.7; O2SAT 99
[2024-07-22] MEDS: Normal Saline Flush 10 ML SYR IVP ×2 (05:36→07:42)
[2024-07-22 06:01] VITALS: BP 165/80
[2024-07-22] MEDS: Acetaminophen 500 MG TAB PO ×2 (07:34→13:53)
[2024-07-22] MEDS: Multivitamin TAB 1 TAB PO (07:34)
[2024-07-22] MEDS: Atorvastatin 20 MG TAB PO (07:34)
[2024-07-22] MEDS: Cyanocobalamin 500 MCG TAB PO (07:34)
[2024-07-22] MEDS: Cholecalciferol (Vitamin D3) 1,000 UNIT TAB 1000 UNITS PO (07:35)
[2024-07-22] MEDS: Pantoprazole 40 MG TABCR PO (07:35)
[2024-07-22] MEDS: Lactulose 20 GM/30 ML CUP 30 GM PO ×2 (07:36→14:06)
[2024-07-22] MEDS: Lisinopril 10 MG TAB PO (07:40)
[2024-07-22 07:45] VITALS: BP 180/77; PULSE 70; RESP 18; TEMP 37.3; O2SAT 96
[2024-07-22] MEDS: Bimatoprost 0.01% 2.5 ML BTL OP (07:53)
--- NOTE | 2024-07-22 08:59 | PT.INTREAT ---
PT Notes Visit Reasons: Encephalopathy Physical Therapy Inpatient Treatment Note Date: 07/22/2024 Precautions: Fall. Standard. Per Dr. Borjas of [facility] orthopedics as of 07/06/2024: NWB thorugh the L LE with AD until seen for next orthopedic follow up. Subjective: Feeling good and is very confident about going home to continue with his exercises and use of the knee scooter for support. Objective: General Observation: Fiberglass splint on L leg and foot. Mental Status: Alert and oriented as to person, place, and purpose. Moderately able to pay attention, focus, and respond appropriately. Pain: 3-4/10 in the L ankle that did not increase with WB Vital Signs: Closely monitored by nursing staff Bed Mobility/Transfers: Maximal cueing provided for use of B hands as needed for support, movement sequence, AD management, and posture to reduce fall risk and minimize pain report Supine to sit independent Sit to stand independent Stand to sit independent Bed to chair independent Gait: Covered 600 feet using his knee scooter with modified independence since early this morning. Did another 300 feet+ 300 feet with PT this morning. Nursing staff reported safe techniques and strategies with hallway ambulation. No report of increased pain in leg thorughout. Stairs: 12 x 4-inch steps and 8 x 6-inch steps while holding onto B rails with supervision only by PT for minimal verbal cueing for safety technique. Balance: Static Sitting: Normal Dynamic Sitting: Normal Static Standing: fair Dynamic Standing: Unable to test due to WB precaution THERA EX: Reviewed and reinforced continued performance of chair push ups x 10, SLR to L x 10, Seated hip abduction x 10, and [id number] x 10 afer ambulation activity today. Assessment: Much more focused and moved purposefully today. Based on today's mobility performance and functional improvements, patient will be able to manage at home with caregiver support for instrumental ADLs of meal preparation, grocery shopping, and outdoor transport. Has been made independent inside room and in hallway using his knee scooter since 07/21/2024 and has done well so far. SO Najma will be with patient at home to provide needed support. Plan of Care/Treatment Plan: Continue with PT to progress strength, mobility level and balance while awaiting orthopedic follow up. DISCHARGE RECOMMENDATIONS: [] Home with no services [] [X] Home with services. Patient will benefit from home health PT services in order to progress mobility level using least restrictive assistive ambulatory device, assess home safety, identify additional equipment needs, and establish a functional maintenance program that will increase ability of patient to remain at home. [] Home with outpatient PT [] [] SNF for continued rehabilitation [] Custodial Care [] [] SNF versus LTC based on ability to participate and progress [] TREATMENT CODE/TIME: 41762 x 39 minutes for 3 units (08:59-09:38).
[2024-07-22 09:45] VITALS: BP 141/63; PULSE 73; RESP 16; TEMP 37.1; O2SAT 94
[2024-07-22 11:17] VITALS: BP 162/67; PULSE 70; RESP 20; TEMP 37.1; O2SAT 97
--- NOTE | 2024-07-22 11:54 | W.PM.DS.N ---
Date of service: 07/22/24 Time of Service: 11:54 DS: Diagnosis Discharge Diagnosis (1) Hepatic encephalopathy: (2) Cirrhosis: Status: Chronic (3) Hypertension: Status: Resolved (4) Alcohol use disorder in remission: (5) Anemia: (6) Bimalleolar fracture of left ankle: Status: Acute (7) Bradycardia: Status: Acute Discharge Plan Disposition Patient Disposition: Home W/Home Health Services Condition: Good Discharge Details Reason For Visit: Encephalopathy Admit Date/Time: 07/16/24 18:10 Admit Provider: Torres Enrique Attending Provider: Torres Enrique Primary Care Provider: George Lou Hospital Course Hospital Course: 69 yo with cirrhosis and ascites s/p TIPS with history of encephalopathy who was brought the the emergency room by EMS after he was found confused after being seen with normal mental status about 24h prior. He had ankle surgery 5 days prior for a complicated fracture. He was quite agitated and required sedation with midazolam for safety in the emergency room which was transitioned to dexmedetomidine drip after admission to ICU. Alcohol level was negative, no indication of drug use other than prescribed post-operative pain medications. He was treated for presumed hepatic encephalopathy and treated initially with rectal lactulose, which was transitioned to oral lactulose on hospital day #2 as his mental status improved. He was bradycardic into the 30s during and after the dexmedetomidine drip, but this gradually improved. He was given ceftriaxone to cover for possible SBP, but there was not sufficient ascitic fluid on POCUS to perform a paracentesis. He received a total of 6 days of therapy. This was given as a precaution but he likely did not have SBP. 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 He was given additional education about tracking mental status to monitor for encephalopathy, including [employer] on his smart phone. The rationale for and management of lactulose was also discussed. He was evaluated by PT and initially recommended for SNF rehabilitation, but as his mental status normalized and he was re-evaluated, home health PT was recommended along with nursing to help monitor his cirrhosis. Follow Up: Routine monitoring for cirrhosis including liver function testing and HCC screens every 6 mo Ongoing education about hepatic encephalopathy Home Meds and New Rx's Prescriptions: New lactulose 10 gram/15 mL Solution 20 g PO TID Qty: 1800 2RF Rx Instructions: titrate to 2-3 bowel movements per day Continued Centrum Silver 0.4-300-250 mg-mcg-mcg tablet 1 tab PO DAILY pantoprazole 40 mg tablet,delayed release (DR/EC) 40 mg PO DAILY Qty: 0 12RF latanoprost 0.005 % drops 1 drp ophthalmic (eye) QPM milk thistle seed extract 200 mg capsule 200 mg PO DAILY Rx Instructions: give with meal/snack Curica Turmeric 300 mg capsule 300 mg PO DAILY mecobalamin (vitamin B12) 500 mcg tablet,chewable 500 mcg PO DAILY cholecalciferol (vitamin D3) [Vitamin D3] 25 mcg (1,000 unit) capsule 25 mcg PO DAILY zinc glycinate 7.5 mg tablet,chewable 7.5 mg PO DAILY atorvastatin 20 mg tablet 20 mg PO DAILY lisinopril 10 mg tablet 10 mg PO DAILY Lumigan 0.01 % drops 1 drp ophthalmic (eye) DAILY sildenafil 100 mg tablet 100 mg PO PRN PRN Patient Comments: TAKE ONE TABLET BY MOUTH APPROX. 30 MIN PRIOR TO INTERCOURSE Discharge Instructions Instructions: Hepatic encephalopathy Additional Instructions: As we discussed, take the lactulose regularly for now. You should have 2-3 soft bowel movements daily. Review the handout on monitoring for hepatic encephalopathy. You can use a smartphone based Grace like [employer] to check your mentation daily. You may need more lactulose if you are not sleeping as well or thinking as clearly. Continue to avoid all alcohol and other liver toxins Activity:: Activity as Tolerated Equipment/Supplies:: No Equipment Needed Diet:: As Tolerated Discharge Orders Discharge Orders: Discharge Order (Routine); Ordered 07/22/24 Ordered By: Torres Enrique DS: Summary Time Spent with Patient providing and/or coordinating discharge services: Greater than 30 minutes Status at Discharge Functional status at discharge: uses cane/walker (knee scooter) Overall status at discharge: patient is back to baseline Mental Status: mental status grossly normal Speech and Movement: speech and movement normal Mood: congruent mood Affect: normal affect Quality:SDOH Health Related Social Needs: No Data to Display Exam Narrative Exam Narrative: Older gentleman sitting up in the chair in no acute distress, awake alert, oriented x 4, speech fluid and normal thought process. normal respiratory effort, lungs clear to ascultation bilaterally. abdomen soft, nontender, nondistended with no masses. Trace LE edema in ankles. no tremor/asterixis. Psych Mental Status: mental status grossly normal Speech and Movement: speech and movement normal Mood: congruent mood Affect: normal affect DS: Data Vitals/I&O Vitals and I&O: Vital Signs Temperature 37.1 C 07/22/24 11:17 Temperature Source Temporal Artery Scan 07/22/24 11:17 Pulse 70 07/22/24 11:17 Pulse 75 07/18/24 10:31 Respiratory Rate 20 07/22/24 11:17 Respiratory Effort Normal 07/16/24 18:44 Respiratory Depth Normal 07/16/24 18:44 Respiratory Pattern Tachypnea 07/16/24 18:44 Blood Pressure 162/67 H 07/22/24 11:17 Blood Pressure Mean 77 07/18/24 14:27 Blood Pressure Position Supine 07/16/24 18:44 Pulse Oximetry 97 07/22/24 11:17 Oxygen Delivery Method Room Air 07/22/24 11:17 Oxygen Flow Rate 0 07/22/24 11:17 Pain Level 6 07/22/24 10:24 Comment RN Notified 07/22/24 06:01 Intake & Output 07/21/24 07/21/24 07/22/24 11:59 23:59 11:59 Intake Total 520 / 520 250 / 250 Output Total 200 / 800 600 / 800 200 / 200 Balance -200 / -280 -80 / -280 50 / 50 Weight 85.275 kg 81.1 kg Intake: IV 60 / 60 10 / 10 Oral 460 / 460 240 / 240 Output: Urine 200 / 450 250 / 450 200 / 200 Stool 350 / 350 Other: Urine Color Yellow Yellow Yellow Urine Appearance Clear Clear Cloudy Urine Odor None Normal Comment with stool Pt went into bathroom to void, flushed before I could see. Stool Size Moderate Moderate Smear Stool Characteristics Formed Soft Liquid Brown Brown Data Completed and Pending Labs on day of discharge: Labs from last 24 hours 07/21/24 12:19 WBC 3.11 L RBC 3.13 L Hgb 10.6 L Hct 29.5 L MCV 94 MCH 33.9 H MCHC 35.9 RDW 13.5 Plt Count 132 MPV 8.4 PFSH All Active Problems (Updated 07/20/24 @ 12:34 by Cleopatra Ayala NP) Palliative care patient (Acute) Advanced care planning/counseling discussion (Acute) Bradycardia (Acute) SBP (spontaneous bacterial peritonitis) (Acute) Acute encephalopathy (Acute) Hyperammonemia (Acute) Closed fracture of left distal fibula (Acute) Bimalleolar fracture of left ankle (Acute ~06/28/24) Numbness of right hand (Acute) Peripheral neuropathy (Acute) Encephalopathy acute (Acute) Right carpal tunnel syndrome (Acute) Duodenitis (Acute) Liver mass, left lobe (Acute) 2.6 cm bx at [facility] on 02/06 Cholelithiasis (Acute) Gastritis (Acute) Esophageal reflux (Chronic) Left rotator cuff tear (Acute) Gallstones (Chronic) Cirrhosis (Chronic) Medical History (Updated 07/20/24 @ 12:34 by Cleopatra Ayala NP) Alcohol use disorder in remission Esophagitis Hx of non-insulin dependent diabetes mellitus Hx of pneumothorax History of rib fracture Hx of fracture of clavicle Scoliosis Duodenal ulcer disease Melena Nausea & vomiting Hx of caloric malnutrition Anemia Left inguinal hernia Drug abuse Hepatic encephalopathy Pancytopenia Red blood cell antibody positive with compatible PRBC difficult to obtain History of GI bleed variceal Hepatitis C Fully treated Esophageal varices Surgical History Hx of basal cell carcinoma excision Hx of Achilles tendon repair History of esophagogastroduodenoscopy (EGD) (~01/16/20) multiple Previous back surgery Sanchez siva placement 1972 and then removal 1980 S/P hernia repair S/P shoulder surgery S/P TIPS (transjugular intrahepatic portosystemic shunt) Has ultrasound done every 6 months last done 09/2023 Family History Mother Breast cancer Sister Breast cancer Heart disease Diabetes Sister Breast cancer Hypertension Brother Cancer leukemia Brother Heart disease Diabetes Hypertension Maternal Grandmother Heart disease Father Diabetes Hypertension Social History Smoking/Tobacco Use Status: Never Smoking risk assessment performed?: Yes Alcohol Intake: former Year quit: 2019 Drug use: Current Sobriety Substance use type: does not use and former substance user Details: 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
--- NOTE | 2024-07-22 12:59 | PDOC.CMDIS ---
Date of service: 07/22/24 Time of Service: 12:59 LACE Index Scoring Tool Questions: Length of Stay (in days): 4 - 6 Was the patient admitted via the E.D.?: Yes Comorbidities: Liver or Renal Disease E.D. Visits: 3 Answers: Total Score: 15 Risk of Readmission: High Risk Care Management Discharge Plan Reason for Hospitalization: hepatic encephalopathy Discharge Plan: Dong is discharged home today with a resumption of his HH PT and new RN. Dong will f/u with his PCP and with ortho. Dong will transport home in a private vehicle with a friend. His girlfriend will stay with him for a bit to help assure his safety in the home. Patient/Family Education Needs: Review of discharge instructions, activity, limitations, and discuss Ask me 3. Services Needed at Discharge: Home Health Care Services (resume PT, new SN) SDOH Health Related Social Needs: No Data to Display
== END 2024-07-22 14:48 | disposition home health service (06) | DRG 443 ==
LOC: ER 16:40 → ICU 18:12 → MS 07-18 17:28
PROVIDERS: Family Medicine; Admitting Provider Family Medicine; Emergency Provider Emergency Medicine; PCP Physician Assistant; Responsible Provider Family Medicine; Visit Provider Family Medicine
DX: K76.82 Hepatic encephalopathy (principal); K74.60 Unspecified cirrhosis of liver; I10 Essential (primary) hypertension; F10.91 Alcohol use, unspecified, in remission; D72.819 Decreased white blood cell count, unspecified; S82.842D Displaced bimalleolar fracture of left lower leg, subsequent encounter for closed fracture with routine healing; K80.20 Calculus of gallbladder without cholecystitis without obstruction; K29.70 Gastritis, unspecified, without bleeding; K21.9 Gastro-esophageal reflux disease without esophagitis; E11.42 Type 2 diabetes mellitus with diabetic polyneuropathy; E11.65 Type 2 diabetes mellitus with hyperglycemia; Z98.890 Other specified postprocedural states; Z79.891 Long term (current) use of opiate analgesic; D64.9 Anemia, unspecified
CPT/HCPCS: 00123; 36415; 36416; 70496; 70498; 80048; 80053; 80076; 80307; 82962; 85027; 87040; 93005; 96127; 96365; 96366; 96367; 96368; 96375; 96376; 97110; 97116; 97162; 97530; 99222; 99285; J1650; 70551; 71045; 73610; 80320; 80329; 81003; 81015; 82140; 82607; 83036; 83605; 83615; 83735; 84157; 84443; 84484; 85025; 85610; 87070; 87205; 93010; 99223; 99233; 99239; J0131; J0696; J2060; J2250; J2405; J2470; J3372; J3411; J3490; J7613

== ENCOUNTER 2024-07-26 09:58 | Outpatient (REF) | payer MEDICARE, SELFPAY ==
[2024-07-26 20:37] LABS: COMMENT (LAB VIEW ONLY) 201.55 mg/dL; Microalb ug/mg Crea 45.9 ug/mg Cr
== END 2024-07-26 09:59 | disposition home or self-care (01) ==
LOC: NCHCN 09:58
PROVIDERS: PCP Physician Assistant; Visit Provider Physician Assistant
DX: I10 Essential (primary) hypertension (principal)
CPT/HCPCS: 82043; 82570

== ENCOUNTER 2024-08-14 02:07 | Outpatient (CLI) | payer MEDICARE, SELFPAY ==
[2024-08-14 07:48] LABS: ALT 26 U/L (16-63); AST 31 U/L (15-37); Albumin 3.2 g/dL (3.4-5.0); Alkaline Phosphatase 143 U/L (46-116); Anion Gap 6.2 mmol/L (3-11); BUN 9 mg/dL (7-18); Bilirubin, Total 1.5 mg/dL (0.2-1.0); CO2 27.8 mmol/L (21.0-32.0); CREATININE 0.8 mg/dL (0.70-1.30); Calcium 8.7 mg/dL (8.5-10.1); Chloride 109 mmol/L (98-107); Estimated GFR 94.62 (mL/min/1.73m2); Glucose 134 mg/dL (74-106); Potassium 4.1 mmol/L (3.5-5.1); Sodium 143 mmol/L (136-145); Total Protein 6.7 g/dL (6.4-8.2)
[2024-08-14 07:56] LABS: Ammonia 117 umol/L (11-32)
== END 2024-08-14 02:08 | disposition home or self-care (01) ==
LOC: LBO 02:07
PROVIDERS: PCP Physician Assistant; Visit Provider Physician Assistant
DX: K74.60 Unspecified cirrhosis of liver (principal)
CPT/HCPCS: 36415; 80053; 82140

== ENCOUNTER 2024-10-23 10:20 | Outpatient (CLI) | payer MEDICARE, SELFPAY ==
--- NOTE | 2024-10-23 | DI.RAD_ITS ---
Exam(s) XR ANKLE RT COMPLETE XR FOOT RT COMPLETE EXAM: XR FOOT RT COMPLETE and XR ankle RT complete CLINICAL HISTORY: ACUTE PAIN OF R FOOT, M79.671. TECHNIQUE: 2D digital imaging was performed of the right ankle and foot. Six images were obtained. AP, oblique and lateral views were obtained. COMPARISON: There are no priors for comparison. FINDINGS: BONES: No acute fracture is present. No bony destructive lesion is seen. There is a small enthesophyte at the posterior calcaneus. JOINTS: No dislocation present. The joint spaces are well maintained. The ankle mortise is intact. SOFT TISSUE: There is soft tissue swelling around the ankle particularly laterally. IMPRESSION: 1. No acute fracture or dislocation. 2. Soft tissue swelling around the ankle particularly laterally. If there is concern for internal derangement, an MRI should be considered for further evaluation. DATA REPOSITORY: RADIATION DOSE DELIVERED:
== END 2024-10-23 10:40 ==
LOC: DI 10:21
PROVIDERS: PCP Physician Assistant; Visit Provider Nurse Practitioner Family
DX: M79.671 Pain in right foot (principal)
CPT/HCPCS: 73610; 73630

== ENCOUNTER 2025-01-03 15:20 | Outpatient (REF) | payer MEDICARE, SELFPAY ==
[2025-01-03 18:29] LABS: Hemoglobin A1C 8.0 % (<5.7)
[2025-01-03 18:33] LABS: Calculated LDL 75 mg/dL (<100); Cholesterol 155 mg/dL (<200); HDL Cholesterol 71 mg/dL (>or=40); Triglyceride 48 mg/dL (<150)
== END 2025-01-03 15:21 | disposition home or self-care (01) ==
LOC: NCHCN 15:20
PROVIDERS: PCP Physician Assistant; Visit Provider Physician Assistant
DX: R73.03 Prediabetes (principal)
CPT/HCPCS: 80061; 83036

== ENCOUNTER 2025-01-25 01:13 | Observation (INO) | payer MEDICARE, SELFPAY ==
[2025-01-25] VITALS (36 sets, daily range): BP systolic 110–187; BP diastolic 28–66; PULSE 51–69; RESP 13–26; TEMP 36.7–37.8; O2SAT 95–100
--- NOTE | 2025-01-25 01:18 | ED.GENADUL_ITS ---
Discharge Plan Disposition Patient Disposition: Admit to [facility] Condition: Serious Discharge Details Clinical Impression: Hepatic encephalopathy, Acute hyponatremia, Liver disease, Pancytopenia, Hypertension, Upper respiratory infection Primary Care Provider: George Lou ED Provider: Janie Mir Home Meds and New Rx's Prescriptions: No Action lactulose 10 gram/15 mL solution 20 g PO .COMPLEX Qty: 1200 0RF Rx Instructions: 20 grams orally taking 30 ml every other day and then increases PRN; titrate to 2-3 bowel movements per day Centrum Silver 0.4-300-250 mg-mcg-mcg tablet 1 tab PO DAILY pantoprazole 40 mg tablet,delayed release (DR/EC) 40 mg PO DAILY Qty: 0 12RF latanoprost 0.005 % drops 1 drp ophthalmic (eye) QPM milk thistle seed extract 200 mg capsule 200 mg PO DAILY Rx Instructions: give with meal/snack Curica Turmeric 300 mg capsule 300 mg PO DAILY mecobalamin (vitamin B12) 500 mcg tablet,chewable 500 mcg PO DAILY cholecalciferol (vitamin D3) [Vitamin D3] 25 mcg (1,000 unit) capsule 25 mcg PO DAILY zinc glycinate 7.5 mg tablet,chewable 7.5 mg PO DAILY atorvastatin 20 mg tablet 20 mg PO DAILY lisinopril 10 mg tablet 10 mg PO DAILY Lumigan 0.01 % drops 1 drp ophthalmic (eye) DAILY sildenafil 100 mg tablet 100 mg PO PRN PRN Patient Comments: TAKE ONE TABLET BY MOUTH APPROX. 30 MIN PRIOR TO INTERCOURSE HPI General Mode of arrival: ambulatory . Date/Time Provider Initiated Documentation: 01/25/25 01:15 . Limitations to Documentation: no limitations . Information obtained by: patient, family and old records reviewed (most recent palliative care note) . HPI Narrative: 69yo M with advanced liver disease 2/t ETOH use s/p TIPS, hepatocellular carcinoma, esophageal varices, chronic mild hepatic encephalopathy, presenting for confusion. History from patient and partner at bedside. Haskell mostly normal yesterday (Tuesday) however yesterday evening started to seem off to his partner. 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 No headache, nausea, vomiting, numbness, focal weakness, vertigo, vision changes. No recent falls or injuries. No dark or bloody stool. Has had some URI symptoms the past several days (nasal congestion, cough) and is feeling mildly short of breath with this, particularly with activity. No fevers, chills, or rash. Has felt similar confusion in the past with episodes of worsening hepatic encephalopathy. Not sure if he has been taking the right amount of lactulose for the past several days. Otherwise in his usual state of health with no headache, neck pain, chest pain, abdominal pain, LE edema, palpitations, syncope, or other concerns. Related Data Home Medications ?Medication ?Instructions ?Recorded ?Confirmed nynprikc-dvv-qwiox acid 0.4 1 tab PO DAILY 11/16/19 mg-lycopene 300 mcg-lutein 250 mcg tablet (Centrum Silver) atorvastatin 20 mg tablet 20 mg PO DAILY 08/19/2301/09 bimatoprost 0.01 % eye drops 1 drp ophthalmic (eye) DA AZAM 08/19/23 01/25/25 (Mary) lisinopril 10 mg tablet 10 mg PO DAILY 08/19/2310/10 pantoprazole 40 mg tablet,delayed 40 mg PO DAILY #0 ta bs 01/31/24 11/06/24 release sildenafil 100 mg tablet 100 mg PO PRN PRN 06/28/24 0 11/06/24 cholecalciferol (vitamin D3) 25 25 mcg PO DAILY 01/25/25 mcg (1,000 unit) capsule (Vitamin D3) latanoprost 0.005 % eye drops 1 drp ophthalmic (eye) Q PM 07/16/24 11/06/24 mecobalamin (vitamin B12) 500 mcg 500 mcg PO DAILY 11/0211/06/24 chewable tablet milk thistle seed extract 200 mg 200 mg PO DAILY 07/1611/06/24 capsule turmeric root extract 300 mg 300 mg PO DAILY 07/16/24 11/06/24 capsule (Curica Turmeric) zinc glycinate 7.5 mg chewable 7.5 mg PO DAILY 5 11/06/24 tablet lactulose 10 gram/15 mL oral 20 g (30 mL) PO .COMPLEX #1,200 mL 11/06/24 01/25/25 solution Previous Rx's ?Medication ?Instructions ?Recorded pantoprazole 40 mg tablet,delayed 40 mg PO DAILY #0 ta bs 01/31/24 release lactulose 10 gram/15 mL oral 20 g (30 mL) PO .COMPLEX #1,200 mL 11/06/24 solution Allergies Allergy/AdvReac Type Severity Reaction Status Date / Time oxycodone (From OxyContin) AdvReac Intermediate Other (See Verified 01/25/25 01:22 Comment) zolpidem (From Ambien) AdvReac Other (See Verified 01/25/25 01:22 Comment) General BAKARI: 4 Review of Systems Narrative: see HPI Exam Narrative Exam Narrative: General: Alert, in no acute distress. Head: Normocephalic, atraumatic Neck: Trachea midline, ?Neck supple. ENT: ?MMM.? No oropharygeal lesions or exudate. Cardiac: ?RRR, no murmurs appreciated Resp: No respiratory distress. CTAB. Nasal congestion. Abd: ?Soft, non-distended, nontender : ?No suprapubic tenderness. Extremities: ?No deformities.? No peripheral edema. Neuro: ? GCS 14, oriented to person and situation only.? PERRL.? EOMI.? Fluent speech, no dysarthria. Asterixis. Motor- 5/5 strength symmetric bilateral upper and lower extremities Sensation- ?Intact to light touch and symmetric multiple dermatomes including upper and lower extremities Coordination- No dysmetria on finger to nose Reflexes- 2/4 achilles & patellar, no clonus Gait/station: ?Normal stance.? No truncal ataxia. Steady gait with equal normal steps CRANIAL NERVES: II: Pupils equal and reactive, III, IV, : EOM intact, no gaze preference or deviation, no nystagmus. V: normal sensation in V1, V2, and V3 segments bilaterally VII: no asymmetry, no nasolabial fold flattening VIII: normal hearing to speech IX, X: normal palatal elevation, no uvular deviation XI: 5/5 head turn and 5/5 shoulder shrug bilaterally XII: midline tongue protrusion Medical Decision Making 69yo M with advanced liver disease 2/t ETOH use s/p TIPS, hepatocellular carcinoma, esophageal varices, chronic mild hepatic encephalopathy, presenting for confusion. History from patient and partner at bedside. Haskell mostly normal yesterday but over the past 36 hours has become increasingly more confused. Also has URI symptoms and mild shortness of breath with exertion. Hypertensive on arrival, vital signs otherwise reassuring. Repeat BP without intervention improved with SBP in 150's. Non-toxic on exam with no respiratory distress, lungs CTAB, + nasal congestion. Nonfocal neurologic exam. He is oriented to person and situation. +asterixis. History and exam not suggestive of toxidrome, head trauma, sepsis, respiratory failure, hypertensive encephalopathy, CVA. No SANFORD, neck pain, or fever to suggest meningitis or encephalitis; would not LP. No abdominal tenderness to suggest SBP. -EKG sinus bradycardia in 50's, appropriate intervals, no ST segment or T wave abnormalities to suggest occlusive PR. -CT head independently reviewed; no SDH or other bleed or large mass on my view, radiology read with no acute findings. -CXR independently reviewed; no focal pneumonia or pneumothorax or pleural effusion on my view, radiology read with no acute findings. -Labs reviewed as below, CBC with mild pancytopenia (baseline on recent [facility] record review), CMP with hyponatremia at 132 (acute, mild but possibly contributing to pt's symptoms) and no uremia or FRANKY and bilirubin 1.5 which is baseline for pt, Mg normal, VBG normal with no acidosis or alkalosis, TSH elevated with normal T4, acetaminophen negative, salicylate negative, etoh negative, coags reassuring/baseline, BNP not suggestive of heart failure, troponin normal with one hour repeat stable (would not further pursue ACS), ammonia elevated at 52 concerning for hepatic encephalopathy. UA not infected. Respiratory viral swab negative. He reassessment he remains non-toxic with reassuring vital signs. Overall history and workup most consistent with S2 hepatic encephalopathy (perhaps some component of hyponatremia contributing). Does live with partner but she is not able to watch him 24/ and I do not think he would be capable of adhering to outpatient treatment reliably at this time; his last episode of hepatic encephalopathy was severe and required ICU admission. Discussed with [facility] hospitalist Dr. Dunlap; pt accepted to medicine service for further workup and management. Awaiting admission orders and transfer to the floor. Lab Data Lab results reviewed: Yes I reviewed the patient's lab results. Labs: Laboratory Tests Range/Units 01/25/25 01/25/25 01/25/25 01:30 02:05 02:23 WBC (4.4-10.8) 10^3/uL 3.65 L RBC (4.36-5.78) 10^6/uL 3.89 L Hgb (13.5-17.5) g/dL 12.6 L Hct (40.0-50.0) % 35.9 L MCV (80-95) fL 92 MCH (27.0-33.0) pg 32.4 MCHC (32.0-36.0) % 35.1 RDW (11.8-14.1) % 14.6 H Plt Count (130-400) 10^3/uL 121 L MPV (8.0-11.0) fL 8.7 Immature Gran % % 0.3 Neutrophils % % 55.2 Lymphocytes % % 24.7 Monocytes % % 13.2 Eosinophils % % 5.8 Basophils % % 0.8 Nucleated RBC % (0.0-0.3) % 0.0 Absolute Neutrophils (1.2-6.7) 10^3/uL 2.01 Absolute Lymphocytes (1.2-3.4) 10^3/uL 0.90 L Absolute Monocytes (0.1-0.8) 10^3/uL 0.48 Absolute Eosinophils (0.0-0.7) 10^3/uL 0.21 Absolute Basophils (0.0-0.2) 10^3/uL 0.03 PT (9.1-11.1) sec 11.6 H INR (0.9-1.1) 1.2 H APTT (20.6-30.2) sec 26.5 VBG pH (7.31-7.41) 7.40 VBG pCO2 (41-51) mmHg 42 VBG pO2 mmHg 20 VBG HCO3 (23-28) mmol/L 26 VBG Total CO2 (24-29) mmol/L 24 VBG O2 Saturation % 31 VBG Base Excess (-2-3) mmol/L 1 Sodium (136-145) mmol/L 132 L Potassium (3.5-5.1) mmol/L 4.2 Chloride (98-107) mmol/L 106 Carbon Dioxide (21.0-32.0) mmol/L 26.8 Anion Gap (3-11) mmol/L -0.8 L BUN (7-18) mg/dL 18 Creatinine (0.70-1.30) mg/dL 1.0 Est GFR (CKD-EPI 2020) (mL/min/1.73m2) 80.47 Glucose (74-106) mg/dL 153 H Calcium (8.5-10.1) mg/dL 9.3 Magnesium (1.8-2.4) mg/dL 2.1 Total Bilirubin (0.2-1.0) mg/dL 1.5 H AST (15-37) U/L 24 ALT (16-63) U/L 21 Alkaline Phosphatase (46-116) U/L 108 Ammonia (11-32) umol/L 52 H Troponin I (<or=76) ng/L 21 NT-Pro-B Natriuret Pep (<300) pg/mL 139 Total Protein (6.4-8.2) g/dL 6.7 Albumin (3.4-5.0) g/dL 3.3 L TSH (0.36-3.74) uIU/mL 4.57 H Free T4 (0.76-1.46) ng/dL 0.84 Urine Color (Yellow) Yellow Urine Clarity (Clear) Clear Urine pH (5-8) 7.0 Ur Specific [place] (1.005-1.025) 1.020 Urine Protein (Neg-Trace) mg/dL 30 H Urine Ketones (Negative) mg/dL Trace H Urine Blood (Negative) Trace-intact H Urine Nitrite (Negative) Negative Urine Bilirubin (Negative) Negative Urine Urobilinogen (Up to 0.2) mg/dL 2.0 H Ur Leukocyte Esterase (Negative) Negative Urine RBC (0-2) HPF Negative Urine WBC (0-5) HPF Negative Ur Epithelial Cells (Negative) HPF Negative Urine Crystals (Negative) HPF Negative Urine Bacteria (Negative) HPF Rare Urine Casts (Negative) LPF Negative Urine Mucus (Negative) Negative Ur Culture Indicated? No Urine Glucose (Negative) mg/dL Negative Salicylates (<2.8) mg/dL < 2.8 Acetaminophen (10-30) ug/mL < 2 Ethyl Alcohol (<10) mg/dL < 3.0 COVID-19 Source Nasopharynx SARS-CoV-2 (PCR) (Negative) Negative Influenza Type A (PCR) (Negative) Negative Influenza Type B (PCR) (Negative) Negative RSV (PCR) (Negative) Negative Range/Units 01/25/25 02:30 WBC (4.4-10.8) 10^3/uL RBC (4.36-5.78) 10^6/uL Hgb (13.5-17.5) g/dL Hct (40.0-50.0) % MCV (80-95) fL MCH (27.0-33.0) pg MCHC (32.0-36.0) % RDW (11.8-14.1) % Plt Count (130-400) 10^3/uL MPV (8.0-11.0) fL Immature Gran % % Neutrophils % % Lymphocytes % % Monocytes % % Eosinophils % % Basophils % % Nucleated RBC % (0.0-0.3) % Absolute Neutrophils (1.2-6.7) 10^3/uL Absolute Lymphocytes (1.2-3.4) 10^3/uL Absolute Monocytes (0.1-0.8) 10^3/uL Absolute Eosinophils (0.0-0.7) 10^3/uL Absolute Basophils (0.0-0.2) 10^3/uL PT (9.1-11.1) sec INR (0.9-1.1) APTT (20.6-30.2) sec VBG pH (7.31-7.41) VBG pCO2 (41-51) mmHg VBG pO2 mmHg VBG HCO3 (23-28) mmol/L VBG Total CO2 (24-29) mmol/L VBG O2 Saturation % VBG Base Excess (-2-3) mmol/L Sodium (136-145) mmol/L Potassium (3.5-5.1) mmol/L Chloride (98-107) mmol/L Carbon Dioxide (21.0-32.0) mmol/L Anion Gap (3-11) mmol/L BUN (7-18) mg/dL Creatinine (0.70-1.30) mg/dL Est GFR (CKD-EPI 2020) (mL/min/1.73m2) Glucose (74-106) mg/dL Calcium (8.5-10.1) mg/dL Magnesium (1.8-2.4) mg/dL Total Bilirubin (0.2-1.0) mg/dL AST (15-37) U/L ALT (16-63) U/L Alkaline Phosphatase (46-116) U/L Ammonia (11-32) umol/L Troponin I (<or=76) ng/L 20 NT-Pro-B Natriuret Pep (<300) pg/mL Total Protein (6.4-8.2) g/dL Albumin (3.4-5.0) g/dL TSH (0.36-3.74) uIU/mL Free T4 (0.76-1.46) ng/dL Urine Color (Yellow) Urine Clarity (Clear) Urine pH (5-8) Ur Specific [place] (1.005-1.025) Urine Protein (Neg-Trace) mg/dL Urine Ketones (Negative) mg/dL Urine Blood (Negative) Urine Nitrite (Negative) Urine Bilirubin (Negative) Urine Urobilinogen (Up to 0.2) mg/dL Ur Leukocyte Esterase (Negative) Urine RBC (0-2) HPF Urine WBC (0-5) HPF Ur Epithelial Cells (Negative) HPF Urine Crystals (Negative) HPF Urine Bacteria (Negative) HPF Urine Casts (Negative) LPF Urine Mucus (Negative) Ur Culture Indicated? Urine Glucose (Negative) mg/dL Salicylates (<2.8) mg/dL Acetaminophen (10-30) ug/mL Ethyl Alcohol (<10) mg/dL COVID-19 Source SARS-CoV-2 (PCR) (Negative) Influenza Type A (PCR) (Negative) Influenza Type B (PCR) (Negative) RSV (PCR) (Negative) PFSH All Active Problems (Updated 01/25/25 @ 03:10 by Tl Dunlap) Upper respiratory infection (Acute) Hypertension (Chronic) Pancytopenia (Acute) Liver disease (Acute) Acute hyponatremia (Acute) Hepatic encephalopathy (Acute) Advance care planning (Acute) Esophageal varices (Acute) Alcohol use disorder in remission (Chronic) Palliative care patient (Acute) Closed fracture of left distal fibula (Acute) Bimalleolar fracture of left ankle (Acute ~06/28/24) Numbness of right hand (Acute) Peripheral neuropathy (Acute) Right carpal tunnel syndrome (Acute) Duodenitis (Acute) Liver mass, left lobe (Acute) 2.6 cm bx at [facility] on 02/06 Cholelithiasis (Acute) Gastritis (Acute) Esophageal reflux (Chronic) Left rotator cuff tear (Acute) Gallstones (Chronic) Cirrhosis (Chronic) Medical History Esophagitis Duodenal ulcer disease Melena Nausea & vomiting Hx of caloric malnutrition Anemia Drug abuse Left inguinal hernia Hepatitis C Fully treated Hx of non-insulin dependent diabetes mellitus Hx of pneumothorax History of rib fracture Hx of fracture of clavicle Scoliosis Hepatic encephalopathy Pancytopenia Red blood cell antibody positive with compatible PRBC difficult to obtain History of GI bleed variceal Surgical History S/P TIPS (transjugular intrahepatic portosystemic shunt) Has ultrasound done every 6 months last done 09/2023 Hx of basal cell carcinoma excision Hx of Achilles tendon repair History of esophagogastroduodenoscopy (EGD) (~01/16/20) multiple Previous back surgery Sanchez siva placement 1972 and then removal 1980 S/P hernia repair S/P shoulder surgery Family History Mother Breast cancer Sister Breast cancer Heart disease Diabetes Sister Breast cancer Hypertension Brother Cancer leukemia Brother Heart disease Diabetes Hypertension Maternal Grandmother Heart disease Father Diabetes Hypertension Social History Smoking/Tobacco Use Status: Never Smoking risk assessment performed?: Yes Alcohol Intake: former Year quit: 2019 Drug use: Current Sobriety Substance use type: does not use and former substance user Details: 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
--- NOTE | 2025-01-25 01:30 | RT.EKG_ITS ---
APPROVED REPORT Exam: Resting ECG Reason for Exam: sob Patient Location: E HR:59 bpm ECG Measurements Heart Rate 59 AXIS OH 192 P 28 QRSd 90 QRS 5 QT 436 T 46 QTc 425 Conclusion Sinus bradycardia...rate< 60 Atrial premature complexes...SV complexes w/ short R-R intvls appropriate intervals, no ST segment or T wave abnormalities to suggest occlusive CT.
[2025-01-25 01:37] LABS: BE (Venous) 1 mmol/L (-2-3); HCO3 (Venous) 26 mmol/L (23-28); O2 Sat (Venous) 31 %; TCO2 (Venous) 24 mmol/L (24-29); pCO2 (Venous) 42 mmHg (41-51); pO2 (Venous) 20 mmHg
[2025-01-25 01:45] LABS: Abs Immature Grans 0.01 10^3/uL (0.0-0.06); HCT 35.9 % (40.0-50.0); HGB 12.6 g/dL (13.5-17.5); Immature Grans % 0.3 %; MCH 32.4 pg (27.0-33.0); MCHC 35.1 % (32.0-36.0); MCV 92 fL (80-95); MPV 8.7 fL (8.0-11.0); Platelet Count 121 10^3/uL (130-400); RBC 3.89 10^6/uL (4.36-5.78); RDW 14.6 % (11.8-14.1); RDW-SD 49.1 fL; WBC 3.65 10^3/uL (4.4-10.8)
--- NOTE | 2025-01-25 02:00 | DI.CT_ITS ---
Exam(s) CT HEAD WO EXAM: CT HEAD WO CLINICAL HISTORY: encephalopathic. TECHNIQUE: Imaging Protocol: Axial computed tomography images with coronal and sagittal reformatted images were created and reviewed COMPARISON: CT CT HEAD CERVICAL SPINE WO from 11/02/[address] HEAD WO from 01/20/[address] BRAIN NECK CTA from 07/16/2024 FINDINGS: Ventricles and Extra axial spaces: Normal in size and morphology for the patient's age. Hemorrhage: None. Cerebral parenchyma: There are areas of decreased attenuation in the white matter consistent with chronic microvascular ischemic disease. No acute territorial infarct or mass effect is identified at this time. Midline shift: None. Brainstem/Cerebellum: Normal. Calvarium: Normal. Visualized Paranasal sinuses/Mastoids: Clear. Soft Tissues: Unremarkable. IMPRESSION: 1. No acute intracranial process. 2. The preliminary [facility] report was reviewed. RADIATION DOSE DELIVERED: 854.6mGy.cm Total DLP DATA REPOSITORY: All CT scans at this facility are submitted to the National Radiology Data Registry (NRDR) Dose Index Registry (DIR) with the [employer] ([employer]). RADIATION OPTIMIZATION: All CT scans at this facility use at least one of these dose optimization techniques: automated exposure control; mA and/or kV adjustment per patient size (includes targeted exams where dose is matched to clinical indication); or iterative reconstruction.
--- NOTE | 2025-01-25 02:00 | DI.RAD_ITS ---
Exam(s) XR CHEST 2V PA LATERAL EXAM: XR CHEST 2V PA LATERAL CLINICAL HISTORY: SOB TECHNIQUE: 2D digital imaging was performed of the chest. Two images were obtained. PA and lateral views were obtained. COMPARISON: CR XR CHEST 2V PA LATERAL from 11/19/2019 CR XR CHEST 2V PA LATERAL from 01/20/2024 CR XR CHEST 1V IN DI DEPT from 07/16/2024 FINDINGS: MEDIASTINUM: Normal. HEART: Normal. PULMONARY VASCULATURE: Normal. LUNGS: Clear. PLEURAL SPACE: No pleural effusion or pneumothorax. BONE:Within normal limits for the patient's age. There is an old left clavicular fracture. There also old left rib fractures. OTHER FINDINGS:There is a TIPS in the right upper quadrant of the abdomen. IMPRESSION: 1. No acute pulmonary findings. 2. The preliminary [facility] report was reviewed. DATA REPOSITORY: RADIATION DOSE DELIVERED:
[2025-01-25 02:05] LABS: Ammonia 52 umol/L (11-32)
[2025-01-25 02:12] LABS: ALT 21 U/L (16-63); AST 24 U/L (15-37); Albumin 3.3 g/dL (3.4-5.0); Alkaline Phosphatase 108 U/L (46-116); Anion Gap -0.8 mmol/L (3-11); BUN 18 mg/dL (7-18); Bilirubin, Total 1.5 mg/dL (0.2-1.0); CO2 26.8 mmol/L (21.0-32.0); Calcium 9.3 mg/dL (8.5-10.1); Chloride 106 mmol/L (98-107); Estimated GFR 80.47 (mL/min/1.73m2); Glucose 153 mg/dL (74-106); Magnesium 2.1 mg/dL (1.8-2.4); Potassium 4.2 mmol/L (3.5-5.1); Sodium 132 mmol/L (136-145); TSH (W/Ref FT4) 4.57 uIU/mL (0.36-3.74); Total Protein 6.7 g/dL (6.4-8.2)
[2025-01-25 02:15] LABS: NT-proBNP 139 pg/mL (<300); Troponin I 21 ng/L (<or=76)
[2025-01-25 02:26] LABS: INR 1.2 (0.9-1.1); PTT Activated 26.5 sec (20.6-30.2); Prothrombin Time 11.6 sec (9.1-11.1)
--- NOTE | 2025-01-25 02:26 | DI.[facility]_ITS ---
PROCEDURE INFORMATION: Exam: CT Head Without Contrast Exam date and time: 01/25/2025 1:45 AM Age: 69 years old Clinical indication: Other: Encephalopathic TECHNIQUE: Imaging protocol: Computed tomography of the head without contrast. Radiation optimization: All CT scans at this facility use at least one of these dose optimization techniques: automated exposure control; mA and/or kV adjustment per patient size (includes targeted exams where dose is matched to clinical indication); or iterative reconstruction. COMPARISON: MR BRAIN WO 07/16/2024 3:49 PM FINDINGS: Brain: Generalized atrophy and chronic white matter ischemic changes. There is no mass, acute hemorrhage or acute infarct. Cerebral ventricles: Moderate ventricular dilation on the basis of atrophy. No hydrocephalus. Paranasal sinuses: Visualized sinuses are unremarkable. No fluid levels. Mastoid air cells: Visualized mastoid air cells are well aerated. Bones: Unremarkable. No acute fracture. Soft tissues: Unremarkable. IMPRESSION: No acute intracranial abnormality. Dictated and Authenticated by: Mena Chau MD. Orderin Adeola Lima MD
--- NOTE | 2025-01-25 02:27 | DI.[facility]_ITS ---
PROCEDURE INFORMATION: Exam: XR Chest Exam date and time: 01/25/2025 1:58 AM Age: 69 years old Clinical indication: Shortness of breath; SOB TECHNIQUE: Imaging protocol: Radiologic exam of the chest. Views: 2 views. COMPARISON: CR XR CHEST 1V IN DI DEPT 07/16/2024 1:19 PM FINDINGS: Lungs: Unremarkable. No consolidation. Pleural spaces: Unremarkable. No pleural effusion. No pneumothorax. Heart/Mediastinum: Unremarkable. No cardiomegaly. Bones/joints: Multiple healed lateral left rib fractures. Intraperitoneal space: TI PS overlying the liver and embolization coils in the mid upper abdomen. IMPRESSION: No acute findings. Dictated and Authenticated by: Mena Chau MD. Orderin Adeola Lima MD
[2025-01-25 02:31] LABS: Glucose Negative (Negative)
[2025-01-25 02:38] LABS: Acetaminophen < 2 ug/mL (10-30); Salicylate < 2.8 mg/dL (<2.8)
[2025-01-25 02:41] LABS: C & S Indicated? No; RBC Negative HPF (0-2); WBC Negative HPF (0-5)
[2025-01-25 02:47] LABS: COVID-19 PCR Negative (Negative); RSV PCR Negative (Negative)
[2025-01-25] MEDS: Rifaximin 550 MG TAB PO (02:54)
[2025-01-25] MEDS: Lactulose 20 GM/30 ML CUP PO ×2 (02:54→09:50)
[2025-01-25 02:58] LABS: Troponin I 20 ng/L (<or=76)
--- NOTE | 2025-01-25 02:59 | NUR.NOTE ---
tolerated PO medications without difficulty, remains at bedside and patient informed of admission. Nursing Note:
--- NOTE | 2025-01-25 03:00 | W.PM.HP.N ---
Date of service: 01/25/25 Time of Service: 03:00 Assessment and Plan Assessment and plan (1) Hepatic encephalopathy: Start date: 01/25/25 Status: Acute Assessment and plan: This is a 69-year-old gentleman with a long history of alcoholism now not drinking with a negative alcohol level upon presentation to the ED with brain fog and probable exacerbation of his hepatic encephalopathy. He is on lactulose at home but compliance is questionable. He will be reinitiated on lactulose 30 g 3 times daily and monitor clinically. Trending ammonia is not necessary. Plans are for patient to return home once he is cleared his encephalopathy. He will need increased to provision of medical therapy at home. He is a DNR/DNI. (2) Alcohol use disorder in remission: Status: Chronic Assessment and plan: Patient is alcohol level is negative he does have a history of drug use disorder with drug screen to be done upon admission. He was prescribed narcotics with his ankle fracture in the spring 2024. PDMP confirmed this prescribing pattern. Patient not prescribed any narcotics recently. (3) Cirrhosis: Status: Chronic Assessment and plan: This appears stable with patient off alcohol presently. He has had a TIPS procedure in the past with esophageal varices known. He does have a slightly elevated PT/INR and total bilirubin but this does not appear to be progressing. He does have pancytopenia which is associated. If he does need anticoagulation this should be safe with Eliquis. His platelet count is low but above 100. (4) Chronic hyperglycemia: Status: Chronic Assessment and plan: Patient does have chronically elevated glucose measurements with no treatment or history of diabetes. Glucometer measurements before meal and at bedtime with sensitive sliding scale insulin coverage while hospitalized. This should be addressed as an outpatient. This may be secondary to his chronic alcoholism and possible islet cell damage in the pancreas. (5) Hypertension: Status: Chronic Assessment and plan: Continue outpatient medical therapy modified as needed. (6) Pancytopenia: Status: Chronic Assessment and plan: This appears stable and is secondary to his cirrhosis. (7) Esophageal reflux: Status: Chronic Assessment and plan: Continue PPI. History of Present Illness History of Present Illness Chief Complaint: Brain fog with increased confusion in a patient with cirrhosis. Narrative: This is a 69-year-old male patient who has known alcoholic cirrhosis with sequela not drinking presently with a negative alcohol level upon presentation to the ED for brain fog. He is on lactulose 20 to 30 g 3 times daily and states that he does have loose stools. His partner thinks that he may have missed dosing. His partner is not always with him. The patient did have an elevated ammonia level though it was not as high as previous recent measurements. He was given a dose of lactulose in the ED and was slightly improved at the time I saw him. He did not have asterixis as the ED provider observed. He was able to tell me he was at the hospital and was oriented to place and grossly time. Patient has had previous problem with drug abuse though this was not clear and he does state that he has allergies to oxycodone and zolpidem. He was prescribed narcotics throughout 2023 and again in the spring 2024 when he had a fractured left fibula. PDMP is consistent with this prescribing. He has had no recent prescriptions. Urine drug screen will be performed because of his history of drug misuse and presenting with brain fog even though it may be all his hepatic encephalopathy. Patient offers no other complaints. He does have swelling in his left leg which has been a recent onset this is the leg that he had fractured. He is on Lovenox for prophylaxis upon admission but will have an ultrasound that leg to rule out DVT. Hopefully he will have a short hospital stay with increased lactulose treatment and trending labs. If he does have a DVT he will need to be treated for this which may be complicated by his cirrhosis and slightly elevated PTT as well as slightly low platelets. He does have pancytopenia with his cirrhosis. He is a DNR/DNI. Review of Systems Narrative: 13 point review of systems otherwise unrevealing or unobtainable. FOR[facility]LY [facility] All Active Problems (Updated 01/25/25 @ 11:11 by Tl Dunlap) Chronic hyperglycemia (Chronic) Upper respiratory infection (Acute) Hypertension (Chronic) Pancytopenia (Chronic) Liver disease (Acute) Acute hyponatremia (Acute) Hepatic encephalopathy (Acute) Advance care planning (Acute) Esophageal varices (Acute) Alcohol use disorder in remission (Chronic) Palliative care patient (Acute) Closed fracture of left distal fibula (Acute) Bimalleolar fracture of left ankle (Acute ~06/28/24) Numbness of right hand (Acute) Peripheral neuropathy (Acute) Right carpal tunnel syndrome (Acute) Duodenitis (Acute) Liver mass, left lobe (Acute) 2.6 cm bx at [facility] on 02/06 Cholelithiasis (Acute) Gastritis (Acute) Esophageal reflux (Chronic) Left rotator cuff tear (Acute) Gallstones (Chronic) Cirrhosis (Chronic) Medical History Esophagitis Duodenal ulcer disease Melena Nausea & vomiting Hx of caloric malnutrition Anemia Drug abuse Left inguinal hernia Hepatitis C Fully treated Hx of non-insulin dependent diabetes mellitus Hx of pneumothorax History of rib fracture Hx of fracture of clavicle Scoliosis Hepatic encephalopathy Pancytopenia Red blood cell antibody positive with compatible PRBC difficult to obtain History of GI bleed variceal Surgical History S/P TIPS (transjugular intrahepatic portosystemic shunt) Has ultrasound done every 6 months last done 09/2023 Hx of basal cell carcinoma excision Hx of Achilles tendon repair History of esophagogastroduodenoscopy (EGD) (~01/16/20) multiple Previous back surgery Sanchez siva placement 1972 and then removal 1980 S/P hernia repair S/P shoulder surgery Family History Mother Breast cancer Sister Breast cancer Heart disease Diabetes Sister Breast cancer Hypertension Brother Cancer leukemia Brother Heart disease Diabetes Hypertension Maternal Grandmother Heart disease Father Diabetes Hypertension Social History Smoking/Tobacco Use Status: Never Smoking risk assessment performed?: Yes Alcohol Intake: former Year quit: 2018 Drug use: Current Sobriety Substance use type: does not use and former substance user Details: 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 Household members: none Housing: apartment Number of Children: 0 current occupation: [employer] Current gender identity: male What is your relationship status?: Panel score (0-1 are the most socially isolated patients): 0 Do you feel safe at home: Yes Additional Social history: lives alone Meds Allergies and Home Medications Allergies Allergy/AdvReac Type Severity Reaction Status Date / Time oxycodone (From OxyContin) AdvReac Intermediate Other (See Verified 01/25/25 01:22 Comment) zolpidem (From Ambien) AdvReac Other (See Verified 01/25/25 01:22 Comment) Home Medications ?Medication ?Instructions ?Recorded ?Confirmed ?Type tqzrjeoh-[id number] acid 0.4 1 tab PO DAILY 11/16/19 11/06/24 History mg-lycopene 300 mcg-lutein 250 mcg tablet (Centrum Silver) atorvastatin 20 mg tablet 20 mg PO DAILY 08/19/23 01/25/25 History bimatoprost 0.01 % eye drops 1 drp ophthalmic (eye) DAILY 08/19/23 01/25/25 History (Lumigan) lisinopril 10 mg tablet 10 mg PO DAILY 08/19/23 11/06/24 History pantoprazole 40 mg tablet,delayed 40 mg PO DAILY #0 tabs 01/31/24 11/06/24 Rx release sildenafil 100 mg tablet 100 mg PO PRN PRN 06/28/24 11/06/24 History cholecalciferol (vitamin D3) 25 25 mcg PO DAILY 07/16/24 01/25/25 History mcg (1,000 unit) capsule (Vitamin D3) latanoprost 0.005 % eye drops 1 drp ophthalmic (eye) QPM 07/16/24 11/06/24 History mecobalamin (vitamin B12) 500 mcg 500 mcg PO DAILY 07/16/24 11/06/24 History chewable tablet milk thistle seed extract 200 mg 200 mg PO DAILY 07/16/24 11/06/24 History capsule turmeric root extract 300 mg 300 mg PO DAILY 07/16/24 11/06/24 History capsule (Curica Turmeric) zinc glycinate 7.5 mg chewable 7.5 mg PO DAILY 07/16/24 11/06/24 History tablet lactulose 10 gram/15 mL oral 20 g (30 mL) PO .COMPLEX #1,200 mL 11/06/24 01/25/25 Rx solution Exam Narrative Exam Narrative: General: Patient appears appropriate for age, he is slightly encephalopathic but able to engage in conversation with good eye contact. He is alert and oriented to person and place and mostly to time. He is in no acute distress. HEENT: Normocephalic, eyes with pupils equal and reactive to light symmetrically, extraocular movement tact and sclera anicteric. Oropharynx with moist mucosa and fair dentition. Neck: Supple without JVD. Back: Stooped posture without CVA tenderness. Lungs: Fair aeration and clear to auscultation percussion with no focalizing rales or rhonchi and no expiratory wheeze. Heart: Regular rate and rhythm with no murmurs gallops appreciated. Abdomen: Obese contour, soft and nontender to palpation with no palpable hepatosplenomegaly. No guarding or rebound. Bowel sounds positive all quadrants. Genitalia/rectal: Exam deferred. Skin: Normal color, warm and dry. Extremities: Nonpitting edema over left lower extremity with negative Homans' sign. Right lower extremity without edema. No clubbing or cyanosis. Fair capillary refill. Neuro: Cranial nerves II through XII gross intact, no focalized motor deficits and no tremor. No asterixis on my exam. Psych: Mild encephalopathic state the patient appears to be able to focus with basic function. Mood and affect not interpretable. No abnormal thought processes. Remote memory intact with recent memory less intact. Results Imaging Imaging Studies: Exam: CT Head Without Contrast Exam date and time: 01/25/2025 1:45 AM Age: 69 years old Clinical indication: Other: Encephalopathic COMPARISON: MR BRAIN WO 07/16/2024 3:49 PM FINDINGS: Brain: Generalized atrophy and chronic white matter ischemic changes. There is no mass, acute hemorrhage or acute infarct. Cerebral ventricles: Moderate ventricular dilation on the basis of atrophy. No hydrocephalus. Paranasal sinuses: Visualized sinuses are unremarkable. No fluid levels. Mastoid air cells: Visualized mastoid air cells are well aerated. Bones: Unremarkable. No acute fracture. Soft tissues: Unremarkable. IMPRESSION: No acute intracranial abnormality. Exam: XR Chest Exam date and time: 01/25/2025 1:58 AM Age: 69 years old Clinical indication: Shortness of breath; SOB TECHNIQUE: Imaging protocol: Radiologic exam of the chest. Views: 2 views. COMPARISON: CR XR CHEST 1V IN DI DEPT 07/16/2024 1:19 PM FINDINGS: Lungs: Unremarkable. No consolidation. Pleural spaces: Unremarkable. No pleural effusion. No pneumothorax. Heart/Mediastinum: Unremarkable. No cardiomegaly. Bones/joints: Multiple healed lateral left rib fractures. Intraperitoneal space: TI PS overlying the liver and embolization coils in the mid upper abdomen. IMPRESSION: No acute findings. Labs 01/25/25 07:20 01/25/25 07:20 Labs: Laboratory Results - last 24 hr 01/25/25 01/25/25 01/25/25 01:30 02:05 02:23 WBC 3.65 L RBC 3.89 L Hgb 12.6 L Hct 35.9 L MCV 92 MCH 32.4 MCHC 35.1 RDW 14.6 H Plt Count 121 L MPV 8.7 Immature Gran % 0.3 Neutrophils % 55.2 Lymphocytes % 24.7 Monocytes % 13.2 Eosinophils % 5.8 Basophils % 0.8 Nucleated RBC % 0.0 Absolute Neutrophils 2.01 Absolute Lymphocytes 0.90 L Absolute Monocytes 0.48 Absolute Eosinophils 0.21 Absolute Basophils 0.03 PT 11.6 H INR 1.2 H APTT 26.5 VBG pH 7.40 VBG pCO2 42 VBG pO2 20 VBG HCO3 26 VBG Total CO2 24 VBG O2 Saturation 31 VBG Base Excess 1 Sodium 132 L Potassium 4.2 Chloride 106 Carbon Dioxide 26.8 Anion Gap -0.8 L BUN 18 Creatinine 1.0 Est GFR (CKD-EPI 2020) 80.47 Glucose 153 H Calcium 9.3 Magnesium 2.1 Total Bilirubin 1.5 H AST 24 ALT 21 Alkaline Phosphatase 108 Ammonia 52 H Troponin I 21 NT-Pro-B Natriuret Pep 139 Total Protein 6.7 Albumin 3.3 L TSH 4.57 H Free T4 0.84 Urine Color Yellow Urine Clarity Clear Urine pH 7.0 Ur Specific [place] 1.020 Urine Protein 30 H Urine Ketones Trace H Urine Blood Trace-intact H Urine Nitrite Negative Urine Bilirubin Negative Urine Urobilinogen 2.0 H Ur Leukocyte Esterase Negative Urine RBC Negative Urine WBC Negative Ur Epithelial Cells Negative Urine Crystals Negative Urine Bacteria Rare Urine Casts Negative Urine Mucus Negative Ur Culture Indicated? No Urine Glucose Negative Salicylates < 2.8 Acetaminophen < 2 Ethyl Alcohol < 3.0 COVID-19 Source Nasopharynx SARS-CoV-2 (PCR) Negative Influenza Type A (PCR) Negative Influenza Type B (PCR) Negative RSV (PCR) Negative Last Vital Signs Temp 36.8 C 01/25/25 01:17 Pulse 55 L 01/25/25 02:31 Resp 18 01/25/25 02:31 BP 153/61 H 01/25/25 02:31 Pulse Ox 95 01/25/25 02:31 Time Spent Time spent with Patient: >75 minutes Time was spent: preparing to see the patient(eg.review tests), obtaining and/or reviewing separately otained hiistory, ordering medications,tests, procedures, indepentently interpreting results and care coordination
[2025-01-25 04:23] LABS: Cannabinoids THC Negative (Negative); METHADONE URINE SCREEN Negative (Negative)
--- NOTE | 2025-01-25 04:41 | NUR.NOTE ---
Nursing to report given to Krystian BOONE, patient admitted to 2028 went to floor via wheel /chair accompanied by nurseNursing Note:
--- NOTE | 2025-01-25 04:41 | W.PC.ACHO ---
Registration Status: REG ER Primary Language: Preferred Language: ED Information & Data Chief Complaint GenMedical 01/25/25 01:26 Chief Complaint GenMedical 01/25/25 01:17 Triage Note PT states that this 01/25/25 01:17 afternoon he started getting confused. PT now has increased confusion and SOB. PT has liver disease and takes lactulose. PTs states that she thinks he hasn't been taking the right dose of lactulose. PT states that he took 30ml of lactulose at 1700 Medical / Surgical History (Last Reviewed 01/25/25 @ 03:00 by Tl Dunlap) Esophagitis Duodenal ulcer disease Melena Nausea & vomiting Hx of caloric malnutrition Anemia Drug abuse Left inguinal hernia Hepatitis C Hx of non-insulin dependent diabetes mellitus Hx of pneumothorax History of rib fracture Hx of fracture of clavicle Scoliosis Hepatic encephalopathy Pancytopenia Red blood cell antibody positive with compatible PRBC difficult to obtain History of GI bleed (Last Reviewed 01/25/25 @ 03:00 by Tl Dunlap) S/P TIPS (transjugular intrahepatic portosystemic shunt) Hx of basal cell carcinoma excision Hx of Achilles tendon repair History of esophagogastroduodenoscopy (EGD) (~01/16/20) Previous back surgery S/P hernia repair S/P shoulder surgery Most Recent Vital Signs Temperature 36.8 C 01/25/25 01:17 Temperature Source Oral 01/25/25 01:17 Pulse 55 L 01/25/25 02:31 Pulse 56 L 01/25/25 02:31 Respiratory Rate 18 01/25/25 02:31 Respiratory Effort Normal, Short of Breath 01/25/25 01:38 Respiratory Depth Normal 01/25/25 01:38 Respiratory Pattern Normal 01/25/25 01:38 Blood Pressure 153/61 H 01/25/25 02:31 Blood Pressure Mean 96 01/25/25 02:31 Pulse Oximetry 95 01/25/25 02:31 Oxygen Delivery Method Room Air 01/25/25 01:27 Oxygen Flow Rate 0 01/25/25 01:17 Allergies oxycodone (From OxyContin) Adverse Reaction (Intermediate, Verified 01/25/25 01:22) Other (See Comment) confusion zolpidem (From Ambien) Adverse Reaction (Verified 01/25/25 01:22) Other (See Comment) sleep driving IV IV Catheter Type [Left Saline Lock Antecubital] IV Catheter Gauge [Left 20 Antecubital] Diagnostics 01/25/25 01/25/25 01/25/25 Range/Units 02:30 02:23 02:05 WBC (4.4-10.8) 10^3/uL RBC (4.36-5.78) 10^6/uL Hgb (13.5-17.5) g/dL Hct (40.0-50.0) % MCV (80-95) fL MCH (27.0-33.0) pg MCHC (32.0-36.0) % RDW (11.8-14.1) % Plt Count (130-400) 10^3/uL MPV (8.0-11.0) fL Immature Gran % % Neutrophils % % Lymphocytes % % Monocytes % % Eosinophils % % Basophils % % Nucleated RBC % (0.0-0.3) % Absolute Neutrophils (1.2-6.7) 10^3/uL Absolute Lymphocytes (1.2-3.4) 10^3/uL Absolute Monocytes (0.1-0.8) 10^3/uL Absolute Eosinophils (0.0-0.7) 10^3/uL Absolute Basophils (0.0-0.2) 10^3/uL PT 11.6 H (9.1-11.1) sec INR 1.2 H (0.9-1.1) APTT 26.5 (20.6-30.2) sec VBG pH (7.31-7.41) VBG pCO2 (41-51) mmHg VBG pO2 mmHg VBG HCO3 (23-28) mmol/L VBG Total CO2 (24-29) mmol/L VBG O2 Saturation % VBG Base Excess (-2-3) mmol/L Sodium (136-145) mmol/L Potassium (3.5-5.1) mmol/L Chloride (98-107) mmol/L Carbon Dioxide (21.0-32.0) mmol/L Anion Gap (3-11) mmol/L BUN (7-18) mg/dL Creatinine (0.70-1.30) mg/dL Est GFR (CKD-EPI 2020) (mL/min/1.73m2) Glucose (74-106) mg/dL Calcium (8.5-10.1) mg/dL Magnesium (1.8-2.4) mg/dL Total Bilirubin (0.2-1.0) mg/dL AST (15-37) U/L ALT (16-63) U/L Alkaline Phosphatase (46-116) U/L Ammonia (11-32) umol/L Troponin I 20 (<or=76) ng/L NT-Pro-B Natriuret Pep (<300) pg/mL Total Protein (6.4-8.2) g/dL Albumin (3.4-5.0) g/dL TSH (0.36-3.74) uIU/mL Free T4 (0.76-1.46) ng/dL Urine Color Yellow (Yellow) Urine Clarity Clear (Clear) Urine pH 7.0 (5-8) Ur Specific [place] 1.020 (1.005-1.025) Urine Protein 30 H (Neg-Trace) mg/dL Urine Ketones Trace H (Negative) mg/dL Urine Blood Trace-intact H (Negative) Urine Nitrite Negative (Negative) Urine Bilirubin Negative (Negative) Urine Urobilinogen 2.0 H (Up to 0.2) mg/dL Ur Leukocyte Esterase Negative (Negative) Urine RBC Negative (0-2) HPF Urine WBC Negative (0-5) HPF Ur Epithelial Cells Negative (Negative) HPF Urine Crystals Negative (Negative) HPF Urine Bacteria Rare (Negative) HPF Urine Casts Negative (Negative) LPF Urine Mucus Negative (Negative) Ur Culture Indicated? No Urine Glucose Negative (Negative) mg/dL Salicylates < 2.8 (<2.8) mg/dL Urine Opiates Screen Negative (Negative) Urine Methadone Screen Negative (Negative) Acetaminophen < 2 (10-30) ug/mL Ur Barbiturates Screen Negative (Negative) Ur Tricyclics Screen Negative (Negative) Ur Amphetamines Screen Negative (Negative) U Benzodiazepines Scrn Negative (Negative) Urine Cocaine Screen Negative (Negative) Ur THC Screen Negative (Negative) Ethyl Alcohol (<10) mg/dL COVID-19 Source Nasopharynx SARS-CoV-2 (PCR) Negative (Negative) Influenza Type A (PCR) Negative (Negative) Influenza Type B (PCR) Negative (Negative) RSV (PCR) Negative (Negative) 01/25/25 Range/Units 01:30 WBC 3.65 L (4.4-10.8) 10^3/uL RBC 3.89 L (4.36-5.78) 10^6/uL Hgb 12.6 L (13.5-17.5) g/dL Hct 35.9 L (40.0-50.0) % MCV 92 (80-95) fL MCH 32.4 (27.0-33.0) pg MCHC 35.1 (32.0-36.0) % RDW 14.6 H (11.8-14.1) % Plt Count 121 L (130-400) 10^3/uL MPV 8.7 (8.0-11.0) fL Immature Gran % 0.3 % Neutrophils % 55.2 % Lymphocytes % 24.7 % Monocytes % 13.2 % Eosinophils % 5.8 % Basophils % 0.8 % Nucleated RBC % 0.0 (0.0-0.3) % Absolute Neutrophils 2.01 (1.2-6.7) 10^3/uL Absolute Lymphocytes 0.90 L (1.2-3.4) 10^3/uL Absolute Monocytes 0.48 (0.1-0.8) 10^3/uL Absolute Eosinophils 0.21 (0.0-0.7) 10^3/uL Absolute Basophils 0.03 (0.0-0.2) 10^3/uL PT (9.1-11.1) sec INR (0.9-1.1) APTT (20.6-30.2) sec VBG pH 7.40 (7.31-7.41) VBG pCO2 42 (41-51) mmHg VBG pO2 20 mmHg VBG HCO3 26 (23-28) mmol/L VBG Total CO2 24 (24-29) mmol/L VBG O2 Saturation 31 % VBG Base Excess 1 (-2-3) mmol/L Sodium 132 L (136-145) mmol/L Potassium 4.2 (3.5-5.1) mmol/L Chloride 106 (98-107) mmol/L Carbon Dioxide 26.8 (21.0-32.0) mmol/L Anion Gap -0.8 L (3-11) mmol/L BUN 18 (7-18) mg/dL Creatinine 1.0 (0.70-1.30) mg/dL Est GFR (CKD-EPI 2020) 80.47 (mL/min/1.73m2) Glucose 153 H (74-106) mg/dL Calcium 9.3 (8.5-10.1) mg/dL Magnesium 2.1 (1.8-2.4) mg/dL Total Bilirubin 1.5 H (0.2-1.0) mg/dL AST 24 (15-37) U/L ALT 21 (16-63) U/L Alkaline Phosphatase 108 (46-116) U/L Ammonia 52 H (11-32) umol/L Troponin I 21 (<or=76) ng/L NT-Pro-B Natriuret Pep 139 (<300) pg/mL Total Protein 6.7 (6.4-8.2) g/dL Albumin 3.3 L (3.4-5.0) g/dL TSH 4.57 H (0.36-3.74) uIU/mL Free T4 0.84 (0.76-1.46) ng/dL Urine Color (Yellow) Urine Clarity (Clear) Urine pH (5-8) Ur Specific [place] (1.005-1.025) Urine Protein (Neg-Trace) mg/dL Urine Ketones (Negative) mg/dL Urine Blood (Negative) Urine Nitrite (Negative) Urine Bilirubin (Negative) Urine Urobilinogen (Up to 0.2) mg/dL Ur Leukocyte Esterase (Negative) Urine RBC (0-2) HPF Urine WBC (0-5) HPF Ur Epithelial Cells (Negative) HPF Urine Crystals (Negative) HPF Urine Bacteria (Negative) HPF Urine Casts (Negative) LPF Urine Mucus (Negative) Ur Culture Indicated? Urine Glucose (Negative) mg/dL Salicylates (<2.8) mg/dL Urine Opiates Screen (Negative) Urine Methadone Screen (Negative) Acetaminophen (10-30) ug/mL Ur Barbiturates Screen (Negative) Ur Tricyclics Screen (Negative) Ur Amphetamines Screen (Negative) U Benzodiazepines Scrn (Negative) Urine Cocaine Screen (Negative) Ur THC Screen (Negative) Ethyl Alcohol < 3.0 (<10) mg/dL COVID-19 Source SARS-CoV-2 (PCR) (Negative) Influenza Type A (PCR) (Negative) Influenza Type B (PCR) (Negative) RSV (PCR) (Negative) Intake and Output - 24 Hour Total 01/25/25 01:13 thru 01/25/25 01:17 Weight 91.3 kg Falls Risk Assessment History of Falls No History 01/25/25 01:27 Contributing Factors No Factors 01/25/25 01:27 Ambulatory Aids Independent 01/25/25 01:27 Tubes/Lines None 01/25/25 01:27 Gait Evaluation No gait disturbance 01/25/25 01:27 Cognition No cognitive impairment 01/25/25 01:27 Fall Total Score 0 01/25/25 01:27 Level of Risk Standard/Low Risk 01/25/25 01:27 Problems (Last Reviewed 01/25/25 @ 03:00 by Tl Dunlap) Chronic hyperglycemia (Chronic) Hypertension (Chronic) Pancytopenia (Acute) Hepatic encephalopathy (Acute) Alcohol use disorder in remission (Chronic) Esophageal reflux (Chronic) Cirrhosis (Chronic) Notes 01/25/25 02:59 Nursing Notes by Angelica Ortiz tolerated PO medications without difficulty, remains at bedside and patient informed of admission. Nursing Note: Initialized on 01/25/25 02:59 - END OF NOTE v v v v v v v v v Sending and/or Receiving Nurses: Please use comment section below to note any information pertinent to the patient hand-off not included above. Information / Comments:Pt admit to med/surg through the ED to rm 229. Elevated ammonia, chronic cirrhosis of liver given lactulose. Pt is confused and having trouble w/ word recall. Jameel and hypertensive. Ambulated to ED w/ steady gait. Med rec. not completed by ED as pt and are poor historians, pending pharmacy arrival to confirm. Report received from:Called at 0430, spoke w/ Angelica RN,
[2025-01-25] MEDS: Acetaminophen 325 MG TAB 650 MG PO ×3 (05:57→21:18)
[2025-01-25 07:26] LABS: HCT 31.2 % (40.0-50.0); HGB 11.2 g/dL (13.5-17.5); MCH 32.8 pg (27.0-33.0); MCHC 35.9 % (32.0-36.0); MCV 92 fL (80-95); MPV 8.3 fL (8.0-11.0); Platelet Count 104 10^3/uL (130-400); RBC 3.41 10^6/uL (4.36-5.78); RDW 14.2 % (11.8-14.1); RDW-SD 47.4 fL; WBC 2.83 10^3/uL (4.4-10.8)
[2025-01-25 07:46] LABS: ALT 17 U/L (16-63); AST 17 U/L (15-37); Albumin 2.8 g/dL (3.4-5.0); Alkaline Phosphatase 90 U/L (46-116); Anion Gap 9.0 mmol/L (3-11); BUN 17 mg/dL (7-18); Bilirubin, Total 1.6 mg/dL (0.2-1.0); CO2 22.0 mmol/L (21.0-32.0); Calcium 8.4 mg/dL (8.5-10.1); Chloride 109 mmol/L (98-107); Estimated GFR 91.31 (mL/min/1.73m2); Glucose 146 mg/dL (74-106); Magnesium 1.8 mg/dL (1.8-2.4); Potassium 3.9 mmol/L (3.5-5.1); Sodium 140 mmol/L (136-145); Total Protein 5.8 g/dL (6.4-8.2)
--- NOTE | 2025-01-25 09:00 | DI.US_ITS ---
Exam(s) US LOWER EXTREMITY VENOUS LT EXAM: US LOWER EXTREMITY VENOUS LT CLINICAL HISTORY: Slightly painful while laying or weeks. TECHNIQUE: Lower extremity venous ultrasound performed using grayscale, color- flow, and spectral Doppler analysis. COMPARISON: No exams were available for comparison FINDINGS: The common femoral, femoral and popliteal veins demonstrate normal compressibility, augmentation, and color Doppler. The posterior tibial and peroneal veins are patent. No saphenous vein thrombosis or other superficial venous thrombosis is seen. No hematoma or Ayala's cyst is seen. IMPRESSION: Negative lower extremity ultrasound. No evidence of DVT. DATA REPOSITORY:
--- NOTE | 2025-01-25 09:08 | INITIAL_ITS ---
Date of service: 01/25/25 Time of Service: 13:52 Care Management Initial Assmt Initial Assessment Reason for Hospitalization: Hepatic encephalopothy Functional Status/Living Situation Patient Presentation: Alonzo, who prefers to go by Dong, was seated in a chair and visiting with his girlfriend, Najma, at the time of CM?s visit. He presented to the ED with confusion; See ED documentation. He was pleasant and engaged appropriately in conversation during the encounter. Dong reported his leg pain has resolved. He attributes this pain to standing for approximately 12 hours in recent days at work. He shared that he has experienced similar episodes of confusion in the past. Dong shares he continues to experience intermittent episodes of confusion, he describes this as difficulty forming sentences and word-finding challenges. He reports that these episodes occur randomly throughout the day, with no consistent pattern related to time of day. A PT consult was requested by CM. Dong is known to the palliative care team, though he expressed uncertainty about whether he continues to require their services. He identifies his friends as a strong support system and states that he resides in [facility] with his partner, Najma. 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 He reports being independent at baseline, including driving. Dong previously received home health services, though he does not feel he needs them at this time. CM will continue to follow. 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 Enjoys being outside Medications Medication Management: No Issues/Barriers identified Physical Functioning/Mobility Assistive Device: Walker, CAM boot Advance Directives Advance Directives: Do you have an Advance Directive: Y , 11:02 AD On File at [facility]: Y 01/03/25, 11:02 Date Asked 06/28/24 09/07/24, 15:57 AD Date Reviewed 10/23/24 01/03/25, 11:02 COLST On File at [facility] COLST Date Scanned Code Status Resuscitation Status DNR/DNI Portal Pt does not currently have a portal and education provided: Yes Insurance Coverage/Financial Issues Insurance: BC/BS [place] [facility] Advantage - [id number] FINANCIAL ASST [id number] Care Team Visit Care Team Role Provider Type Torres Enrique MD [facility] STAFF PHYSICIAN George Lou Primary Care Provider NON-[facility] STAFF PHYSICIAN Consuelo Aguirre RDN, [facility] Other Providers SOLAR PHOTOVOLTAIC INSTALLER Jorge Lezama RDN Other Providers SOLAR PHOTOVOLTAIC INSTALLER Janie Mir MD Emergency Provider [facility] STAFF PHYSICIAN Tl Dunlpa Admit Provider NON-[facility] STAFF PHYSICIAN Attending Provider Discharge Potential Discharge Needs: PT Evaluation and PCP F/U Appt Anticipated Barriers to Discharge: None Identified Patient/Family Education Needs: Review discharge instructions, discuss Ask Me Three Transportation: Private vehicle Plan: Anticipate Dong will be discharged home once medically ready; PT consult requested. He will follow up with his community provider, and continue per his plan of care. He will likely transport via private vehicle. CM will continue to follow. Social Determinants of Health Screening Will the Patient Participate in the Screening?: Declined to provide PFSH All Active Problems (Updated 01/25/25 @ 11:11 by Tl Dunlap) Chronic hyperglycemia (Chronic) Upper respiratory infection (Acute) Hypertension (Chronic) Pancytopenia (Chronic) Liver disease (Acute) Acute hyponatremia (Acute) Hepatic encephalopathy (Acute) Advance care planning (Acute) Esophageal varices (Acute) Alcohol use disorder in remission (Chronic) Palliative care patient (Acute) Closed fracture of left distal fibula (Acute) Bimalleolar fracture of left ankle (Acute ~06/28/24) Numbness of right hand (Acute) Peripheral neuropathy (Acute) Right carpal tunnel syndrome (Acute) Duodenitis (Acute) Liver mass, left lobe (Acute) 2.6 cm bx at [facility] on 02/06 Cholelithiasis (Acute) Gastritis (Acute) Esophageal reflux (Chronic) Left rotator cuff tear (Acute) Gallstones (Chronic) Cirrhosis (Chronic) Medical History Esophagitis Duodenal ulcer disease Melena Nausea & vomiting Hx of caloric malnutrition Anemia Drug abuse Left inguinal hernia Hepatitis C Fully treated Hx of non-insulin dependent diabetes mellitus Hx of pneumothorax History of rib fracture Hx of fracture of clavicle Scoliosis Hepatic encephalopathy Pancytopenia Red blood cell antibody positive with compatible PRBC difficult to obtain History of GI bleed variceal Surgical History S/P TIPS (transjugular intrahepatic portosystemic shunt) Has ultrasound done every 6 months last done 09/2023 Hx of basal cell carcinoma excision Hx of Achilles tendon repair History of esophagogastroduodenoscopy (EGD) (~01/16/20) multiple Previous back surgery Sanchez siva placement 1972 and then removal 1980 S/P hernia repair S/P shoulder surgery Family History Mother Breast cancer Sister Breast cancer Heart disease Diabetes Sister Breast cancer Hypertension Brother Cancer leukemia Brother Heart disease Diabetes Hypertension Maternal Grandmother Heart disease Father Diabetes Hypertension Social History Smoking/Tobacco Use Status: Never Smoking risk assessment performed?: Yes Alcohol Intake: former Year quit: 2019 Drug use: Current Sobriety Substance use type: does not use and former substance user Details: 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
[2025-01-25] MEDS: Insulin Aspart 300 UNITS/3 ML PEN SC ×4 (09:46→21:16)
[2025-01-25] MEDS: Enoxaparin 40 MG/0.4 ML SYR SC (09:48)
[2025-01-25] MEDS: Normal Saline Flush 10 ML SYR IVP ×2 (09:50→20:03)
[2025-01-25] MEDS: Cyanocobalamin 500 MCG TAB PO (09:51)
[2025-01-25] MEDS: Multivitamin w/Minerals TAB 1 TAB PO (09:51)
[2025-01-25] MEDS: Lisinopril 10 MG TAB PO (09:51)
[2025-01-25] MEDS: Cholecalciferol (Vitamin D3) 1,000 UNIT TAB 1000 UNITS PO (09:52)
[2025-01-25] MEDS: Pantoprazole 40 MG TABCR PO (09:53)
[2025-01-25] MEDS: Atorvastatin 20 MG TAB PO (09:53)
[2025-01-25] MEDS: Bimatoprost 0.01% 2.5 ML BTL OP (09:53)
[2025-01-25] MEDS: Lactulose 20 GM/30 ML CUP 30 GM PO ×2 (14:04→20:00)
--- NOTE | 2025-01-25 14:08 | PHA.REVIEW2 ---
Pharmacy Admission Review Admission Clinical Review Admission Pharmacy Review: Hepatic encephalopathy (Acute) oxycodone (From OxyContin) Adverse Reaction (Intermediate, Verified 01/25/25 01:22) Other (See Comment) zolpidem (From Ambien) Adverse Reaction (Verified 01/25/25 01:22) Other (See Comment) Resuscitation Status DNR/DNI Height 5 ft 4 in Weight 81.647 kg Pharmacy Admission Review Renal Dosing Renal Dosing: BUN 17 mg/dL (7-18) 01/25/25 07:20 Creatinine 0.9 mg/dL (0.70-1.30) 01/25/25 07:20 Medications needing adjustments: Reviewed (CrCl 65.34 mL/min) List of meds needing interventions: Current medications are okay Anticoagulation Anticoagulation: Hgb 11.2 g/dL (13.5-17.5) L 01/25/25 07:20 Hct 31.2 % (40.0-50.0) L 01/25/25 07:20 Plt Count 104 10^3/uL (130-400) L 01/25/25 07:20 INR 1.2 (0.9-1.1) H 01/25/25 02:05 Creatinine 0.9 mg/dL (0.70-1.30) 01/25/25 07:20 DVT Prophylaxis: Reviewed Medications: Enoxaparin (40mg daily) Relevant Labs Relevant Labs: Sodium 140 mmol/L (136-145) 01/25/25 07:20 Potassium 3.9 mmol/L (3.5-5.1) 01/25/25 07:20 Chloride 109 mmol/L (98-107) H 01/25/25 07:20 Magnesium 1.8 mg/dL (1.8-2.4) 01/25/25 07:20 Electrolytes, C-Reactive P, ESR: Reviewed DM Control DM Control: Glucose 146 mg/dL (74-106) H 01/25/25 07:20 Finger Stick Blood Glucose 335 1212 Finger Stick Blood Glucose 335 1137 Finger Stick Blood Glucose 335 1137 Finger Stick Blood Glucose 148 0946 Finger Stick Blood Glucose 148 0739 Finger Stick Blood Glucose 148 0739 DM Control: Reviewed Insulin Dosing, Diabetic Medication: Has order for SS insulin Cardiac Review Cardiac Review: Troponin I 20 ng/L (<or=76) 01/25/25 02:30 NT-Pro-B Natriuret Pep 139 pg/mL (<300) 01/25/25 01:30 Blood Pressure 145/63 1140 Blood Pressure 148/61 0756 Blood Pressure 151/61 0528 Blood Pressure 151/61 0512 Blood Pressure 110/28 0431 BP, HR, EF%: Reviewed (HR 51 - ranging within the 50s all morning) List meds needing interventions: Has order for lisinopril 10mg daily QTc Review QTc: Reviewed (425 from 01/25/25) IV to PO Switch IV Medications: Reviewed Home Meds Home Med List reviewed: Reviewed Relevent Home Meds Not ordered & why?: sildenafil (PRN), Tumeric and Zinc Current Meds Current Medication Order Review: Reviewed
--- NOTE | 2025-01-25 15:39 | CHAPLAIN ---
Dong and I remembered each other from a previous admission. He was visiting with this girlfriend, Najma, and another friend when I stopped him. 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 He is pleasant and easily engages in a conversation. The last time he was here he spoke about his his years of sobriety and his involvement with the [facility].
[2025-01-25] MEDS: Latanoprost 0.005% 2.5 ML BTL OP (20:01)
[2025-01-26 06:51] VITALS: BP 145/58; PULSE 55; RESP 18; TEMP 37; O2SAT 94
[2025-01-26] MEDS: Multivitamin w/Minerals TAB 1 TAB PO (07:34)
[2025-01-26] MEDS: Lactulose 20 GM/30 ML CUP 30 GM PO (07:34)
[2025-01-26] MEDS: Cholecalciferol (Vitamin D3) 1,000 UNIT TAB 1000 UNITS PO (07:34)
[2025-01-26] MEDS: Pantoprazole 40 MG TABCR PO (07:34)
[2025-01-26] MEDS: Atorvastatin 20 MG TAB PO (07:34)
[2025-01-26] MEDS: Lisinopril 10 MG TAB PO (07:34)
[2025-01-26] MEDS: Enoxaparin 40 MG/0.4 ML SYR SC (07:34)
[2025-01-26] MEDS: Cyanocobalamin 500 MCG TAB PO (07:34)
[2025-01-26] MEDS: Normal Saline Flush 10 ML SYR IVP (07:35)
[2025-01-26] MEDS: Bimatoprost 0.01% 2.5 ML BTL OP (07:35)
[2025-01-26 08:12] VITALS: BP 155/66; PULSE 57; RESP 16; TEMP 37; O2SAT 95
[2025-01-26] MEDS: Acetaminophen 325 MG TAB 650 MG PO (08:15)
[2025-01-26] MEDS: Insulin Aspart 300 UNITS/3 ML PEN SC ×2 (08:15→12:36)
--- NOTE | 2025-01-26 10:14 | IN_ITS ---
Date of service: 01/26/25 Time of Service: 10:25 PT Notes Visit Reasons: Hepatic Encephalopathy Inpatient Physical Therapy Evaluation Certification Period:? From 01/26/25?? Through 02/09/25 I certify the need for these services as being medically necessary and skilled as furnished under this plan of treatment while under my care. Please sign and return within 14 days if you agree with the plan of care listed below.? Thank you for this referral! ? Referring Physician? Date Referring Doctor:? PT Orders: PT CONSULT for Safet Consult for d/c Precautions: slightly impulsive, moving quickly Patient Profile/Admitting Diagnosis:? The patient 69 is a yo male admitted on 01/25/25 via the ED. Pt presented with confusion and possible exacerbation of hepatic enchephalopathy. He was referred to PT for assistive device/fall safety assessment. Past Medical History: See below Social History/Home Situation: Pt lives with his girl friend in an apartment with 14 steps to enter with railings on both sides. Subjective: Pt reports that he is no longer confused. He feels like he worked too hard this past week. 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 He reports that he does not use an assisitive device at home. His girlfriend was present for his PT IE and reports that his walking looked like it usually does. Pt reports that he recovered well from his left fibular fx but managed to injure his right leg while he was recovering. Objective: Mental Status: Patient is alert and oriented. ROM/Strength: Upper extremities: ROM WFL Strength grossly 4+/5 to 5/5 (B) UE Lower extremities: ROM WFL Strength Right grossly 4+/5 Left grossly 5/5 Bed Mobility: Supine to sit independent Tranfers: Sit to stand independent Gait: Ambulated feet Pt ambulated 150 ft with supervision, No loss of balance, slightly antalgic gait pattern with decreased stance time on his right LE Stairs: Able to ascend and descend 5 steps x 2 in PT gym with supervision and use of hand rails Balance: Static/Dynamic sitting balance (I)-good Static Sitting balance (I) good Dynamic standing balance pt is able to maintain dynamic standing balance (I)ly but he moves quickly [facility] AM-PAC 6 clicks Basic Mobility Inpatient Short Form: Raw Score:???24? CMS Score:0 Informed Consent/Education:? Patient instructed in purpose of PT consult and plan of care and is agreeable Assessment:? Patient is a?69 year old male admitted on for confusion and possible exacerbation of hepatic enchephalopathy.? Patient was able to perform bed mobility and sit to stand transfers (I)LY. He was also able to ambulate and perform stairs with supervision. Anticipate that he should be able to return home with his partner. PT services are not required at this time. Patient is assessed as:? Moderate 60907??based on the following: History: see below Examination: see above Presentation: Evolving clinical presentation? Decision Making:? Moderate (1-2 history, 2-3 exam, evolving, mod-30 mins) Physical Therapy Goals: N/A additional services not indicated Plan of Care/Treatment Plan: Pt does not require additional PT services as he is at base line mobility and ambulation DISCHARGE RECOMMENDATIONS: D/C home with his partner with no services or equipment. Billing Charges: Treatment Units Time Duration Manual Therapy(70234) Hands-on techniques to modulate pain increase joint range of motion reduce or eliminate soft tissue swelling, inflammation, or restriction facilitate relaxation and improve contractile and non-contractile tissue extensibility ? ? Therapeutic Procedures (48991) Instruction in therapeutic exercises to develop strength and endurance, range of motion and flexibility. HEP instruction and review: Provided skilled instruction in proper exercise performance: Provided skilled manual cues to facilitate proper muscle recruitment and/or movement pattern Neurological Re-Education(51486) To improve balance, coordination, kinesthetic and proprioceptive sensations. ? ? Ultrasound(14509) To promote healing. ? ? Gait Training(75271) ? ? Therapeutic Activity(97666) Instruction in dynamic activities with one on one patient contact by the provider to improve functional performance as follows: ? ? Self Care Training(24928) ? ? E-Stim (Attended)(05827) ? ? Low IE(32845) Mod IE(50871) 1 ? 40 minutes ? High IE(01045) ? ? Time Coded Treatment Time ? Total Treatment Time ? 40 minutes Informed consent Prior to the start and throughout the course of the examination and treatment, patient was made aware of the specifics and purpose of the physical assessment and treatment procedures. Appropriate draping procedures were utilized to protect modesty where applicable. PFSH All Active Problems (Updated 01/26/25 @ 12:48 by Torres Enrique) Type 2 diabetes mellitus (Acute) Chronic hyperglycemia (Chronic) Upper respiratory infection (Acute) Hypertension (Chronic) Pancytopenia (Chronic) Liver disease (Acute) Acute hyponatremia (Acute) Hepatic encephalopathy (Acute) Advance care planning (Acute) Esophageal varices (Acute) Alcohol use disorder in remission (Chronic) Palliative care patient (Acute) Closed fracture of left distal fibula (Acute) Bimalleolar fracture of left ankle (Acute ~06/28/24) Numbness of right hand (Acute) Peripheral neuropathy (Acute) Right carpal tunnel syndrome (Acute) Duodenitis (Acute) Liver mass, left lobe (Acute) 2.6 cm bx at [facility] on 02/06 Cholelithiasis (Acute) Gastritis (Acute) Esophageal reflux (Chronic) Left rotator cuff tear (Acute) Gallstones (Chronic) Cirrhosis (Chronic) Medical History Esophagitis Duodenal ulcer disease Melena Nausea & vomiting Hx of caloric malnutrition Anemia Drug abuse Left inguinal hernia Hepatitis C Fully treated Hx of non-insulin dependent diabetes mellitus Hx of pneumothorax History of rib fracture Hx of fracture of clavicle Scoliosis Hepatic encephalopathy Pancytopenia Red blood cell antibody positive with compatible PRBC difficult to obtain History of GI bleed variceal Surgical History S/P TIPS (transjugular intrahepatic portosystemic shunt) Has ultrasound done every 6 months last done 09/2023 Hx of basal cell carcinoma excision Hx of Achilles tendon repair History of esophagogastroduodenoscopy (EGD) (~01/16/20) multiple Previous back surgery Sanchez siva placement 1972 and then removal 1980 S/P hernia repair S/P shoulder surgery
[2025-01-26 11:42] VITALS: BP 126/51; PULSE 57; RESP 18; TEMP 36.7; O2SAT 96
--- NOTE | 2025-01-26 12:06 | PDOC.CMDIS ---
Date of service: 01/26/25 Time of Service: 12:06 LACE Index Scoring Tool Questions: Length of Stay (in days): 1 Was the patient admitted via the E.D.?: Yes Comorbidities: Liver or Renal Disease E.D. Visits: 1 Answers: Total Score: 10 Risk of Readmission: High Risk Care Management Discharge Plan Reason for Hospitalization: Hepatic Encephalopathy Discharge Plan: Alonzo is discharged home via private vehicle with family. He will follow up with community providers and continue per his discharge plan of care. No new services are indicated on discharge. Return to work letter was provided. Patient/Family Education Needs: Review discharge instructions and plan to follow up after discharge. Discuss ask me three.
[2025-01-26 12:12] LABS: HCT 32.9 % (40.0-50.0); HGB 11.4 g/dL (13.5-17.5); MCH 31.9 pg (27.0-33.0); MCHC 34.7 % (32.0-36.0); MCV 92 fL (80-95); MPV 9.4 fL (8.0-11.0); RBC 3.57 10^6/uL (4.36-5.78); RDW 14.2 % (11.8-14.1); RDW-SD 48.1 fL; WBC 2.62 10^3/uL (4.4-10.8)
[2025-01-26 12:27] LABS: Platelet Count 98 10^3/uL (130-400)
[2025-01-26 12:29] LABS: ALT 18 U/L (16-63); AST 23 U/L (15-37); Albumin 2.8 g/dL (3.4-5.0); Alkaline Phosphatase 99 U/L (46-116); Anion Gap 6.2 mmol/L (3-11); BUN 15 mg/dL (7-18); Bilirubin, Total 1.3 mg/dL (0.2-1.0); CO2 25.8 mmol/L (21.0-32.0); Calcium 8.9 mg/dL (8.5-10.1); Chloride 110 mmol/L (98-107); Estimated GFR 91.31 (mL/min/1.73m2); Glucose 233 mg/dL (74-106); Potassium 4.3 mmol/L (3.5-5.1); Sodium 142 mmol/L (136-145); Total Protein 6.1 g/dL (6.4-8.2)
[2025-01-26] MEDS: metFORMIN C.R. 500 MG TABCR PO (12:34)
--- NOTE | 2025-01-26 12:50 | DSE_ITS ---
Date of service: 01/26/25 Time of Service: 12:50 DS: Diagnosis Discharge Diagnosis (1) Hepatic encephalopathy: Status: Acute (2) Alcohol use disorder in remission: Status: Chronic (3) Cirrhosis: Status: Chronic (4) Chronic hyperglycemia: Status: Chronic (5) Hypertension: Status: Chronic (6) Pancytopenia: Status: Chronic (7) Esophageal reflux: Status: Chronic Discharge Plan Disposition Patient Disposition: Home Condition: Improving Discharge Details Reason For Visit: Hepatic Encephalopathy Admit Date/Time: 01/25/25 03:18 Admit Provider: Tl Dunlap Attending Provider: Tl Dunlap Primary Care Provider: George Lou Hospital Course Hospital Course: This is a 69-year-old male patient who has known alcoholic cirrhosis, AUD in remission, type 2 DM, and history of hepatic encephalopathy and portal HTN with esophogeal varicies s/p TIPS who presented to the ED with brain fog and confusion after 4 days of 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 His EtOH levels and UDS were negative. Head CT was negative. He also had painful swollen legs from prolonged standing, x-rays and LE DVT study was negative. His liver function was stable other than the encephalopathy. He reported taking his lactulose and rifaximin and having 2-3 BMs/day. He was admitted and treated with increased dosage of lactulose. His stool output increased and his mental status improved. On on the morning of discharge he was alert and oriented x 4 without tremor and was steady on his feet with physical therapy. We reviewed precautions and recommended shorter work days with rest breaks and hydration, and discussed titration of his lactulose as needed. His recent A1c of 8.0% was noted from 01/03. He was started on metformin ER 500mg daily. He should continue this and follow up with his PCP for routine diabetes care. Recommendations for Follow Up Recommended tests to be ordered by follow up provider: CBC/CMP in 1-2 weeks, routine diabetes prison Meds and New Rx's Prescriptions: New acetaminophen 325 mg Tablet 650 mg PO Q4H PRN PRNQty: 100 0RF metformin [Glucophage XR] 500 mg tablet extended release 24 hr 500 mg PO QPM Qty: 90 0RF Continued lactulose 10 gram/15 mL solution 20 g PO .COMPLEX Qty: 1200 0RF Rx Instructions: 20 grams orally taking 30 ml every other day and then increases PRN; titrate to 2-3 bowel movements per day pantoprazole 40 mg tablet,delayed release (DR/EC) 40 mg PO DAILY Qty: 0 12RF latanoprost 0.005 % drops 1 drp ophthalmic (eye) QPM Curica Turmeric 300 mg capsule 300 mg PO DAILY mecobalamin (vitamin B12) 500 mcg tablet,chewable 500 mcg PO DAILY cholecalciferol (vitamin D3) [Vitamin D3] 25 mcg (1,000 unit) capsule 25 mcg PO DAILY zinc glycinate 7.5 mg tablet,chewable 7.5 mg PO DAILY atorvastatin 20 mg tablet 20 mg PO DAILY lisinopril 10 mg tablet 10 mg PO DAILY Lumigan 0.01 % drops 1 drp ophthalmic (eye) DAILY sildenafil 100 mg tablet 100 mg PO PRN PRN Patient Comments: TAKE ONE TABLET BY MOUTH APPROX. 30 MIN PRIOR TO INTERCOURSE Discharge Instructions Instructions: Hepatic encephalopathy Additional Instructions: Take breaks at work and stay hydrated. 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 You should start the long acting metformin and follow up with your PCP to adjust dose and consider other medications. you can take Tylenol/acetominophen for pain up to 2000mg per day. You should NOT take NSAIDs like ibuprofen or naproxen. Activity:: Activity as Tolerated Equipment/Supplies:: No Equipment Needed Diet:: Carb Counting Discharge Orders Discharge Orders: Discharge Order (Routine); Ordered 01/26/25 Ordered By: Torres Enrique DS: Summary Time Spent with Patient providing and/or coordinating discharge services: Greater than 30 minutes Status at Discharge Functional status at discharge: independent ambulation Overall status at discharge: patient is back to baseline Mental Status: mental status grossly normal Speech and Movement: speech and movement normal Mood: congruent mood Affect: normal affect Exam Narrative Exam Narrative: Gen: Alert and oriented x 4, speech clear, history linear HEENT: MMM, no icterus Lungs: CTAB CV: RRR, no murmur ABD: +BS, soft, NT/ND, no fluid wave Ext: No c/c. Trace tomasz edema neuro: no tremor/asterixis, normal coordination. Psych Mental Status: mental status grossly normal Speech and Movement: speech and movement normal Mood: congruent mood Affect: normal affect DS: Data Vitals/I&O Vitals and I&O: Vital Signs Temperature 36.7 C 01/26/25 11:42 Temperature Source Temporal Artery Scan 01/26/25 11:42 Pulse 57 L 01/26/25 11:42 Pulse Rhythm Regular 01/25/25 05:12 Pulse 59 L 01/25/25 04:40 Respiratory Rate 18 01/26/25 11:42 Respiratory Effort Short of Breath 01/25/25 05:12 Respiratory Depth Normal 01/25/25 05:12 Respiratory Pattern Tachypnea 01/25/25 05:12 Blood Pressure 126/51 L 01/26/25 11:42 Blood Pressure Mean 76 01/26/25 11:42 Pulse Oximetry 96 01/26/25 11:42 Oxygen Delivery Method Room Air 01/26/25 11:42 Oxygen Flow Rate 0 01/26/25 11:42 Pain Level 0 01/26/25 06:51 Intake & Output 01/25/25 01/26/25 01/26/25 23:59 11:59 23:59 Intake Total 485 / 540 10 / 250 240 / 250 Output Total 300 / 400 150 / 150 Balance 185 / 140 -140 / 100 240 / 100 Weight 87.5 kg Intake: IV Oral 480 / 530 240 / 240 Output: Urine 300 / 400 150 / 150 Other: Urine Color Light Treva Yellow Urine Appearance Clear Clear Urine Odor Normal Normal Comment Patient independently urinated, unknown amount, color and odor Stool Size Moderate Stool Characteristics Formed Data Completed and Pending Labs on day of discharge: Labs from last 24 hours 01/26/25 11:58 WBC 2.62 L RBC 3.57 L Hgb 11.4 L Hct 32.9 L MCV 92 MCH 31.9 MCHC 34.7 RDW 14.2 H Plt Count 98 L MPV 9.4 Sodium 142 Potassium 4.3 Chloride 110 H Carbon Dioxide 25.8 Anion Gap 6.2 BUN 15 Creatinine 0.9 Est GFR (CKD-EPI 2020) 91.31 Glucose 233 H Calcium 8.9 Total Bilirubin 1.3 H AST 23 ALT 18 Alkaline Phosphatase 99 Total Protein 6.1 L Albumin 2.8 L PFSH All Active Problems (Updated 01/26/25 @ 12:48 by Torres Enrique) Type 2 diabetes mellitus (Acute) Chronic hyperglycemia (Chronic) Upper respiratory infection (Acute) Hypertension (Chronic) Pancytopenia (Chronic) Liver disease (Acute) Acute hyponatremia (Acute) Hepatic encephalopathy (Acute) Advance care planning (Acute) Alcohol use disorder in remission (Chronic) Esophageal varices (Acute) Palliative care patient (Acute) Closed fracture of left distal fibula (Acute) Bimalleolar fracture of left ankle (Acute ~06/28/24) Numbness of right hand (Acute) Peripheral neuropathy (Acute) Right carpal tunnel syndrome (Acute) Duodenitis (Acute) Liver mass, left lobe (Acute) 2.6 cm bx at [facility] on 02/06 Cholelithiasis (Acute) Gastritis (Acute) Esophageal reflux (Chronic) Left rotator cuff tear (Acute) Gallstones (Chronic) Cirrhosis (Chronic) Medical History Esophagitis Duodenal ulcer disease Melena Nausea & vomiting Hx of caloric malnutrition Anemia Drug abuse Left inguinal hernia Hepatitis C Fully treated Hx of non-insulin dependent diabetes mellitus Hx of pneumothorax History of rib fracture Hx of fracture of clavicle Scoliosis Hepatic encephalopathy Pancytopenia Red blood cell antibody positive with compatible PRBC difficult to obtain History of GI bleed variceal Surgical History S/P TIPS (transjugular intrahepatic portosystemic shunt) Has ultrasound done every 6 months last done 09/2023 Hx of basal cell carcinoma excision Hx of Achilles tendon repair History of esophagogastroduodenoscopy (EGD) (~01/16/20) multiple Previous back surgery Sanchez siva placement 1972 and then removal 1980 S/P hernia repair S/P shoulder surgery Family History Mother Breast cancer Sister Breast cancer Heart disease Diabetes Sister Breast cancer Hypertension Brother Cancer leukemia Brother Heart disease Diabetes Hypertension Maternal Grandmother Heart disease Father Diabetes Hypertension Social History Smoking/Tobacco Use Status: Never Smoking risk assessment performed?: Yes Alcohol Intake: former Year quit: 2018 Drug use: Current Sobriety Substance use type: does not use and former substance user Details: 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
== END 2025-01-26 14:49 | disposition home or self-care (01) ==
LOC: ER 03:21 → MS 05:05
PROVIDERS: Admitting Provider Family Medicine; Emergency Provider Student in an Organized Health Care Education/Training Program; PCP Physician Assistant; Responsible Provider Family Medicine; Visit Provider Family Medicine
DX: K76.82 Hepatic encephalopathy (principal); F10.21 Alcohol dependence, in remission; I10 Essential (primary) hypertension; D61.818 Other pancytopenia; K21.9 Gastro-esophageal reflux disease without esophagitis; K70.30 Alcoholic cirrhosis of liver without ascites; M79.89 Other specified soft tissue disorders; Z66 Do not resuscitate; I85.10 Secondary esophageal varices without bleeding; E11.42 Type 2 diabetes mellitus with diabetic polyneuropathy; K29.70 Gastritis, unspecified, without bleeding; Z79.899 Other long term (current) drug therapy
CPT/HCPCS: 00123; 36415; 80053; 80307; 82805; 85027; 87637; 93005; 97162; 99285; J1650; 70450; 71046; 80320; 80329; 81003; 81015; 82140; 83735; 83880; 84439; 84443; 84484; 85025; 85610; 85730; 93010; 93971; 99223; 99238; G0378; J1815

== ENCOUNTER 2025-02-04 13:06 | Outpatient (REF) | payer MEDICARE, SELFPAY ==
[2025-02-04 21:35] LABS: Abs Immature Grans 0.01 10^3/uL (0.0-0.06); HCT 33.4 % (40.0-50.0); HGB 11.2 g/dL (13.5-17.5); Immature Grans % 0.3 %; MCH 32.4 pg (27.0-33.0); MCHC 33.5 % (32.0-36.0); MCV 97 fL (80-95); MPV 9.6 fL (8.0-11.0); Platelet Count 106 10^3/uL (130-400); RBC 3.46 10^6/uL (4.36-5.78); RDW 14.6 % (11.8-14.1); RDW-SD 50.8 fL; WBC 3.15 10^3/uL (4.4-10.8)
[2025-02-04 21:56] LABS: Iron 56 ug/dL (65-175)
[2025-02-04 22:15] LABS: Vitamin B12 1285 pg/mL (193-986)
== END 2025-02-04 13:07 | disposition home or self-care (01) ==
LOC: NCHCN 13:06
PROVIDERS: PCP Physician Assistant; Visit Provider Physician Assistant
DX: D61.818 Other pancytopenia (principal)
CPT/HCPCS: 82607; 83540; 85025; 85045

== ENCOUNTER 2025-02-16 20:01 | Inpatient (IN) | payer MEDICARE, SELFPAY ==
[2025-02-16] VITALS (53 sets, daily range): BP systolic 169–215; BP diastolic 53–72; PULSE 37–62; RESP 11–26; TEMP 36.6–37.3; O2SAT 91–98
--- NOTE | 2025-02-16 20:00 | RT.EKG_ITS ---
APPROVED REPORT Exam: Resting ECG Reason for Exam: Dizzy Patient Location: E HR:60 bpm ECG Measurements Heart Rate 60 AXIS NV 186 P 8 QRSd 84 QRS -3 QT 439 T 35 QTc 437 Conclusion Sinus rhythm...normal P axis, V-rate 60- 99
--- NOTE | 2025-02-16 20:00 | DI.CT_ITS ---
Exam(s) CT HEAD WO EXAM: CT HEAD WO CLINICAL HISTORY: Headache, Fall, Dizzy. TECHNIQUE: Imaging Protocol: Axial computed tomography images with coronal and sagittal reformatted images were created and reviewed COMPARISON: CT CT HEAD - STROKE PROTOCOL from 02/01/[address] HEAD WO from 01/20/[address] BRAIN NECK CTA from 07/16/[address] HEAD WO from 01/25/2025 FINDINGS: Ventricles and Extra axial spaces: Normal in size and morphology for the patient's age. Hemorrhage: None. Cerebral parenchyma: There are areas of decreased attenuation in the white matter consistent with chronic microvascular ischemic disease. There is no evidence of an acute territorial infarct or mass effect. Midline shift: None. Brainstem/Cerebellum: Normal. Calvarium: Normal. Visualized Paranasal sinuses/Mastoids: Clear. Soft Tissues: Unremarkable. IMPRESSION: 1. No acute intracranial process. 2. The preliminary [facility] report was reviewed. RADIATION DOSE DELIVERED: 940.91mGy.cm Total DLP DATA REPOSITORY: All CT scans at this facility are submitted to the National Radiology Data Registry (NRDR) Dose Index Registry (DIR) with the [employer] (ACR). RADIATION OPTIMIZATION: All CT scans at this facility use at least one of these dose optimization techniques: automated exposure control; mA and/or kV adjustment per patient size (includes targeted exams where dose is matched to clinical indication); or iterative reconstruction.
--- NOTE | 2025-02-16 20:17 | W.ED.GENAD ---
Discharge Plan Disposition Patient Disposition: Admit to [facility] Condition: Stable Discharge Details Clinical Impression: Encephalopathy, hepatic, Increased ammonia level Primary Care Provider: George Lou ED Provider: Meryl Vazquez Home Meds and New Rx's Prescriptions: No Action lactulose 10 gram/15 mL solution 20 g PO .COMPLEX Qty: 1200 0RF Rx Instructions: 20 grams orally taking 30 ml every other day and then increases PRN; titrate to 2-3 bowel movements per day pantoprazole 40 mg tablet,delayed release (DR/EC) 40 mg PO DAILY Qty: 0 12RF latanoprost 0.005 % drops 1 drp ophthalmic (eye) QPM Curica Turmeric 300 mg capsule 300 mg PO DAILY mecobalamin (vitamin B12) 500 mcg tablet,chewable 500 mcg PO DAILY cholecalciferol (vitamin D3) [Vitamin D3] 25 mcg (1,000 unit) capsule 25 mcg PO DAILY zinc glycinate 7.5 mg tablet,chewable 7.5 mg PO DAILY atorvastatin 20 mg tablet 20 mg PO DAILY lisinopril 10 mg tablet 10 mg PO DAILY Lumigan 0.01 % drops 1 drp ophthalmic (eye) DAILY sildenafil 100 mg tablet 100 mg PO PRN PRN Patient Comments: TAKE ONE TABLET BY MOUTH APPROX. 30 MIN PRIOR TO INTERCOURSE acetaminophen 325 mg Tablet 650 mg PO Q4H PRN PRNQty: 100 0RF metformin [Glucophage XR] 500 mg tablet extended release 24 hr 500 mg PO QPM Qty: 90 0RF HPI General Mode of arrival: wheelchair. Date/Time Provider Initiated Documentation: 02/16/25 20:03. Limitations to Documentation: no limitations. Information obtained by: patient, RN notes reviewed and old records reviewed. HPI Narrative: 69-year-old male with a past medical history of liver cirrhosis and hepatic encephalopathy presents to the ER with chief complaint of frontal headache over the last couple of days associated with dizziness and a fall earlier today. Patient also states he is having a hard time putting his words together. He reports no alcohol use in the last 7 years. He was recently admitted for hyperammonemia and Gabrielle and acute hepatic encephalopathy. He does have some slurred speech. And is slow to respond to questioning. He does report diarrhea denies any nausea vomiting. He takes lactulose every other day. Other past medical history includes type 2 diabetes, hepatitis C, scoliosis, TIPS procedure, anemia Related Data Home Medications Medication Instructions Recorded Confirmed atorvastatin 20 mg tablet 20 mg PO DAILY 08/19/23 02/16/25 bimatoprost 0.01 % eye drops 1 drp ophthalmic (eye) DAILY 08/19/23 02/16/25 (Lumigan) lisinopril 10 mg tablet 10 mg PO DAILY 08/19/23 02/16/25 pantoprazole 40 mg tablet,delayed 40 mg PO DAILY #0 tabs 01/31/24 02/16/25 release sildenafil 100 mg tablet 100 mg PO PRN PRN 06/28/24 02/16/25 cholecalciferol (vitamin D3) 25 25 mcg PO DAILY 07/16/24 02/16/25 mcg (1,000 unit) capsule (Vitamin D3) latanoprost 0.005 % eye drops 1 drp ophthalmic (eye) QPM 07/16/24 02/16/25 mecobalamin (vitamin B12) 500 mcg 500 mcg PO DAILY 07/16/24 02/16/25 chewable tablet turmeric root extract 300 mg 300 mg PO DAILY 07/16/24 02/16/25 capsule (Curica Turmeric) zinc glycinate 7.5 mg chewable 7.5 mg PO DAILY 07/16/24 02/16/25 tablet lactulose 10 gram/15 mL oral 20 g (30 mL) PO .COMPLEX #1,200 mL 11/06/24 02/16/25 solution acetaminophen 325 mg tablet 650 mg (2 x 325 mg) PO Q4H PRN PRN 01/26/25 02/16/25 #100 tabs metformin 500 mg tablet,extended 500 mg PO QPM #90 tabs 01/26/25 02/16/25 release 24 hr (Glucophage XR) Previous Rx's Medication Instructions Recorded pantoprazole 40 mg tablet,delayed 40 mg PO DAILY #0 tabs 01/31/24 release lactulose 10 gram/15 mL oral 20 g (30 mL) PO .COMPLEX #1,200 mL 11/06/24 solution acetaminophen 325 mg tablet 650 mg (2 x 325 mg) PO Q4H PRN PRN 01/26/25 #100 tabs metformin 500 mg tablet,extended 500 mg PO QPM #90 tabs 01/26/25 release 24 hr (Glucophage XR) Allergies Allergy/AdvReac Type Severity Reaction Status Date / Time oxycodone (From OxyContin) AdvReac Intermediate Other (See Verified 01/25/25 01:22 Comment) zolpidem (From Ambien) AdvReac Other (See Verified 01/25/25 01:22 Comment) General Stated Complaint: Fall/Non TraumaCriteria BAKARI: 3 Review of Systems All systems reviewed & are unremarkable except as noted in HPI and below Constitutional Constitutional: Reports as per HPI, Reports frequent falls, Reports headache(s) and Reports weakness ENT Ears, Nose, Mouth, and Throat: Reports headache(s) and Reports disequilibrium Cardiovascular Cardiovascular: Denies chest pain Respiratory Respiratory: Denies cough Gastrointestinal Gastrointestinal: Denies abdominal pain, Reports diarrhea, Denies nausea and Denies vomiting Musculoskeletal Musculoskeletal: Reports abnormal gait and Reports numbness Neurologic Neurologic: Reports abnormal speech, Reports abnormal gait, Reports confusion, Reports frequent falls, Reports headache(s), Reports numbness, Reports disequilibrium and Reports weakness Psychiatric Psychiatric: Reports confusion Exam Narrative Exam Narrative: Constitutional: Alert and oriented x3. Appears stated age. Normal body habitus. Head: Normocephalic, no trauma. Eyes: Pupils PERRL, Red reflex noted, EOM's intact. Eyelids symmetrical without lesions, discharge, or swelling. ENT: Bilateral TM's WNL, External ear normal to inspection, no mastoid TTP, swelling, or erythema, Nasal turbinates WNL, no nasal discharge. Normal dentition, Posterior pharynx WNL, no exudate. Chest: RRR, Normal S1, S2, distal pulses intact. Resp: Lungs clear to auscultation bilaterally, no wheezes, rales, or rhonchi. Abdomen: Soft, non-distended, Normoactive bowel sounds all 4 quads. Musculoskeletal: Normal gait, Moves all 4 extremities without difficulty. Skin: No suspicious rashes or lesions. Capillary refill less than 2 sec. Neurologic: Cranial nerves II-XII intact. Alert and oriented, slurred speech noted, slow to respond, difficulty putting words together. Motor: No deficits noted. Sensory: Intact bilaterally all 4 extremities. Hematologic/Lymphatic: No ecchymosis, no lymphadenopathy. Course Vital Signs Vital signs: Vital Signs Pulse 60 02/16/25 20:04 Respiratory Rate 18 02/16/25 20:04 Blood Pressure 215/58 H 02/16/25 20:04 Pulse Oximetry 98 02/16/25 20:04 Temperature 37.3 C 02/16/25 20:13 Temperature Source Tympanic 02/16/25 20:13 Pulse 60 02/16/25 20:04 Respiratory Rate 18 02/16/25 20:04 Blood Pressure 215/58 H 02/16/25 20:04 Pulse Oximetry 98 02/16/25 20:04 Oxygen Delivery Method Room Air 02/16/25 20:04 Oxygen Flow Rate 0 02/16/25 20:04 Pain Level 8 02/16/25 20:04 Medical Decision Making 69-year-old male with a past medical history of liver cirrhosis and hepatic encephalopathy presents to the ER with chief complaint of frontal headache over the last couple of days associated with dizziness and a fall earlier today. Patient also states he is having a hard time putting his words together. He reports no alcohol use in the last 7 years. He was recently admitted for hyperammonemia and Gabrielle and acute hepatic encephalopathy. He does have some slurred speech. And is slow to respond to questioning. He does report diarrhea denies any nausea vomiting. He takes lactulose every other day. Workup ordered including CBC CMP PT PTT urinalysis magnesium, head CT and ammonia level. Differential diagnose include nominative to his hepatic encephalopathy, hyperammonemia, CVA, UTI, vertigo, electrolyte abnormality. 50 mg Toradol and Zofran ordered for 500 cc normal saline. Informed by staffing and scheduling coordinator that he is still complaining of headache. 2 mg of morphine IV ordered. Ammonia level is 83, he is leukopenic with white blood cell count 3.34 which is at his baseline, glucose is 392 calcium low 8.2 bilirubin 1.2 ethyl alcohol added on. Urinalysis is pending CT head shows no evidence for acute infarct or acute intracranial hemorrhage. He does have chronic microvascular ischemic changes. Discussed with Dr. Monterroso who is on for hospitalist regarding patient case and details he agrees to accept patient for admission. Discussed admission with patient and friend who verbalized understanding and are in agreement with the plan. Patient reports that his headache has improved after the morphine. This text was generated using [employer] system, please disregard any oddities of phrase or misspellings. Medical Records Medical records reviewed: Yes I reviewed the patient's medical records. Imaging Data Radiologic Study: Imaging: CT Scan Radiologist's impression: FINDINGS: Brain: Age-related involutional changes and chronic microvascular ischemic disease. No evidence for acute transcortical infarct. No mass effect or midline shift. No extra-axial collection. No acute intracranial hemorrhage. Basal cisterns are patent. Cerebral ventricles: No ventriculomegaly. Paranasal sinuses: Visualized sinuses are unremarkable. No fluid levels. Mastoid air cells: Visualized mastoid air cells are well aerated. Bones: Unremarkable. No acute fracture. Soft tissues: Unremarkable. IMPRESSION: No evidence for acute transcortical infarct, acute intracranial hemorrhage, or mass effect. Thank you for allowing us to participate in the care of your patient. Dictated and Authenticated by: Omega Jones MD Lab Data Lab results reviewed: Yes I reviewed the patient's lab results. Labs: Laboratory Tests Range/Units 02/16/25 20:15 WBC (4.4-10.8) 10^3/uL 3.34 L RBC (4.36-5.78) 10^6/uL 3.73 L Hgb (13.5-17.5) g/dL 11.8 L Hct (40.0-50.0) % 34.3 L MCV (80-95) fL 92 MCH (27.0-33.0) pg 31.6 MCHC (32.0-36.0) % 34.4 RDW (11.8-14.1) % 14.0 Plt Count (130-400) 10^3/uL 106 L MPV (8.0-11.0) fL 10.2 Immature Gran % % 0.3 Neutrophils % % 57.4 Lymphocytes % % 21.9 Monocytes % % 12.9 Eosinophils % % 6.6 Basophils % % 0.9 Nucleated RBC % (0.0-0.3) % 0.0 Absolute Neutrophils (1.2-6.7) 10^3/uL 1.92 Absolute Lymphocytes (1.2-3.4) 10^3/uL 0.73 L Absolute Monocytes (0.1-0.8) 10^3/uL 0.43 Absolute Eosinophils (0.0-0.7) 10^3/uL 0.22 Absolute Basophils (0.0-0.2) 10^3/uL 0.03 PT (9.1-11.1) sec 11.7 H INR (0.9-1.1) 1.2 H APTT (20.6-30.2) sec 21.6 Sodium (136-145) mmol/L 141 Potassium (3.5-5.1) mmol/L 4.2 Chloride (98-107) mmol/L 109 H Carbon Dioxide (21.0-32.0) mmol/L 24.6 Anion Gap (3-11) mmol/L 7.4 BUN (7-18) mg/dL 14 Creatinine (0.70-1.30) mg/dL 1.0 Est GFR (CKD-EPI 2020) (mL/min/1.73m2) 80.47 Glucose (74-106) mg/dL 392 H Calcium (8.5-10.1) mg/dL 8.2 L Magnesium (1.8-2.4) mg/dL 1.8 Total Bilirubin (0.2-1.0) mg/dL 1.2 H AST (15-37) U/L 24 ALT (16-63) U/L 24 Alkaline Phosphatase (46-116) U/L 109 Ammonia (11-32) umol/L 83 H Total Protein (6.4-8.2) g/dL 6.4 Albumin (3.4-5.0) g/dL 3.0 L PFSH All Active Problems (Updated 02/16/25 @ 21:22 by Meryl Vazquez NP) Increased ammonia level (Acute) Encephalopathy, hepatic (Acute) Type 2 diabetes mellitus (Acute) Upper respiratory infection (Acute) Hypertension (Chronic) Pancytopenia (Chronic) Liver disease (Acute) Acute hyponatremia (Acute) Hepatic encephalopathy (Acute) Advance care planning (Acute) Esophageal varices (Acute) Palliative care patient (Acute) Closed fracture of left distal fibula (Acute) Bimalleolar fracture of left ankle (Acute ~06/28/24) Numbness of right hand (Acute) Peripheral neuropathy (Acute) Right carpal tunnel syndrome (Acute) Duodenitis (Acute) Liver mass, left lobe (Acute) 2.6 cm bx at [facility] on 02/06 Cholelithiasis (Acute) Gastritis (Acute) Esophageal reflux (Chronic) Left rotator cuff tear (Acute) Gallstones (Chronic) Cirrhosis (Chronic) Medical History Alcohol use disorder in remission Esophagitis Duodenal ulcer disease Melena Nausea & vomiting Hx of caloric malnutrition Anemia Drug abuse Left inguinal hernia Hepatitis C Fully treated Hx of non-insulin dependent diabetes mellitus Hx of pneumothorax History of rib fracture Hx of fracture of clavicle Scoliosis Hepatic encephalopathy Pancytopenia Red blood cell antibody positive with compatible PRBC difficult to obtain History of GI bleed variceal Surgical History S/P TIPS (transjugular intrahepatic portosystemic shunt) Has ultrasound done every 6 months last done 09/2023 Hx of basal cell carcinoma excision Hx of Achilles tendon repair History of esophagogastroduodenoscopy (EGD) (~01/16/20) multiple Previous back surgery Sanchez siva placement 1972 and then removal 1980 S/P hernia repair S/P shoulder surgery Family History Mother Breast cancer Sister Breast cancer Heart disease Diabetes Sister Breast cancer Hypertension Brother Cancer leukemia Brother Heart disease Diabetes Hypertension Maternal Grandmother Heart disease Father Diabetes Hypertension Social History Smoking/Tobacco Use Status: Never Smoking risk assessment performed?: Yes Alcohol Intake: former Year quit: 2019 Drug use: Current Sobriety Substance use type: does not use and former substance user Details: 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
[2025-02-16] MEDS: Normal Saline Flush 10 ML SYR IVP (20:20)
[2025-02-16] MEDS: Ondansetron 4 MG/2 ML VIAL IVP (20:25)
[2025-02-16] MEDS: Ketorolac 15 MG/ML VIAL IVP (20:25)
[2025-02-16] MEDS: Normal Saline 500 ML IV (20:25)
[2025-02-16 20:28] LABS: Abs Immature Grans 0.01 10^3/uL (0.0-0.06); HCT 34.3 % (40.0-50.0); HGB 11.8 g/dL (13.5-17.5); Immature Grans % 0.3 %; MCH 31.6 pg (27.0-33.0); MCHC 34.4 % (32.0-36.0); MCV 92 fL (80-95); MPV 10.2 fL (8.0-11.0); Platelet Count 106 10^3/uL (130-400); RBC 3.73 10^6/uL (4.36-5.78); RDW 14.0 % (11.8-14.1); RDW-SD 46.9 fL; WBC 3.34 10^3/uL (4.4-10.8)
[2025-02-16 20:39] LABS: Ammonia 83 umol/L (11-32)
[2025-02-16 20:43] LABS: INR 1.2 (0.9-1.1); PTT Activated 21.6 sec (20.6-30.2); Prothrombin Time 11.7 sec (9.1-11.1)
[2025-02-16 20:52] LABS: ALT 24 U/L (16-63); AST 24 U/L (15-37); Albumin 3.0 g/dL (3.4-5.0); Alkaline Phosphatase 109 U/L (46-116); Anion Gap 7.4 mmol/L (3-11); BUN 14 mg/dL (7-18); Bilirubin, Total 1.2 mg/dL (0.2-1.0); CO2 24.6 mmol/L (21.0-32.0); Calcium 8.2 mg/dL (8.5-10.1); Chloride 109 mmol/L (98-107); Glucose 392 mg/dL (74-106); Magnesium 1.8 mg/dL (1.8-2.4); Potassium 4.2 mmol/L (3.5-5.1); Sodium 141 mmol/L (136-145); Total Protein 6.4 g/dL (6.4-8.2)
[2025-02-16] MEDS: Lactulose 20 GM/30 ML CUP PO (20:54)
[2025-02-16] MEDS: MORPHine 10 MG/ML VIAL 2 MG IVP (21:01)
--- NOTE | 2025-02-16 21:09 | DI.VRAD_ITS ---
PROCEDURE INFORMATION: Exam: CT Head Without Contrast Exam date and time: 02/16/2025 8:40 PM Age: 69 years old Clinical indication: Dizziness: Fall, headache TECHNIQUE: Imaging protocol: Computed tomography of the head without contrast. COMPARISON: CT HEAD WO 01/25/2025 1:45 AM FINDINGS: Brain: Age-related involutional changes and chronic microvascular ischemic disease. No evidence for acute transcortical infarct. No mass effect or midline shift. No extra-axial collection. No acute intracranial hemorrhage. Basal cisterns are patent. Cerebral ventricles: No ventriculomegaly. Paranasal sinuses: Visualized sinuses are unremarkable. No fluid levels. Mastoid air cells: Visualized mastoid air cells are well aerated. Bones: Unremarkable. No acute fracture. Soft tissues: Unremarkable. IMPRESSION: No evidence for acute transcortical infarct, acute intracranial hemorrhage, or mass effect. Dictated and Authenticated by: Omega Jones MD. Orderin George Sheth MD
--- NOTE | 2025-02-16 21:17 | W.PM.HP.N ---
Date of service: 02/16/25 Time of Service: 21:17 Assessment and Plan Assessment and plan (1) Hepatic encephalopathy: Status: Acute Assessment and plan: - Patient has longstanding history of liver disease, and appears to have hospitalization for hepatic encephalopathy roughly every 6 to 12 months - Upon reading patient's most recent palliative care note, there is patient has difficulty appropriately titrating his lactulose, and has been known to stop taking it due to frequent bowel movements - Patient more confused upon arrival in the emergency department ammonia level was noted to be 83 - Will continue lactulose until mental status is improved and titrate to 3-4 loose bowel movements a day (2) Liver disease: Status: Acute Assessment and plan: There is no hepatic encephalopathy as noted above - Patient has a history of hepatitis C, alcoholic cirrhosis, as well as liver mass which was removed - Patient is also status post TIPS - Patient has been abstinent from alcohol for the last 7 years- (3) Hypertension: Status: Chronic Assessment and plan: - Noted to be hypertensive in the emergency department with blood pressure as high as 215/58, last blood pressure at 2016 was 208/61 - Will continue home lisinopril - Will evaluate patient's blood pressure upon arrival to [facility] if it remains elevated will give as needed dose of hydralazine and then adjust a.m. antihypertensives as needed (4) Type 2 diabetes mellitus: Status: Acute Assessment and plan: - Blood sugar noted to be 392 - Will continue home metformin - Will also place patient on sliding scale insulin carb consistent diet (5) Pancytopenia: Status: Chronic Assessment and plan: - Mild, though currently baseline History of Present Illness History of Present Illness Chief Complaint: unsteady, fall Narrative: 69-year-old gentleman with a past medical history of cirrhosis, hep C status post TIPS procedure all secondary to alcohol use who has abstained of the last 7 years who presents to the emergency department with headaches and dizziness. Patient states over the last few days he has become more unsteady on his feet, dizzy and having a headache, that prior to arrival he experienced fall without hitting his head or losing consciousness. He denies any fevers, nausea, vomiting or diarrhea. In the emergency department patient was noted as being hypertensive with initial blood pressure of 215/58, otherwise normal vital signs. CBC and CMP were unremarkable though patient's ammonia level was 83. Patient also had's head CT that did not show any acute findings. While in the emergency department he was given ketorolac and morphine for his headache, and was also given a dose of lactulose. At which time emergency room provider paged hospitalist for admission for patient with hepatic encephalopathy. Review of Systems All systems reviewed & are unremarkable except as noted in HPI and below PFSH All Active Problems (Updated 02/16/25 @ 21:22 by Meryl Vazquez NP) Increased ammonia level (Acute) Encephalopathy, hepatic (Acute) Type 2 diabetes mellitus (Acute) Upper respiratory infection (Acute) Hypertension (Chronic) Pancytopenia (Chronic) Liver disease (Acute) Acute hyponatremia (Acute) Hepatic encephalopathy (Acute) Advance care planning (Acute) Esophageal varices (Acute) Palliative care patient (Acute) Closed fracture of left distal fibula (Acute) Bimalleolar fracture of left ankle (Acute ~06/28/24) Numbness of right hand (Acute) Peripheral neuropathy (Acute) Right carpal tunnel syndrome (Acute) Duodenitis (Acute) Liver mass, left lobe (Acute) 2.6 cm bx at [facility] on 02/06 Cholelithiasis (Acute) Gastritis (Acute) Esophageal reflux (Chronic) Left rotator cuff tear (Acute) Gallstones (Chronic) Cirrhosis (Chronic) Medical History Alcohol use disorder in remission Esophagitis Duodenal ulcer disease Melena Nausea & vomiting Hx of caloric malnutrition Anemia Drug abuse Left inguinal hernia Hepatitis C Fully treated Hx of non-insulin dependent diabetes mellitus Hx of pneumothorax History of rib fracture Hx of fracture of clavicle Scoliosis Hepatic encephalopathy Pancytopenia Red blood cell antibody positive with compatible PRBC difficult to obtain History of GI bleed variceal Surgical History S/P TIPS (transjugular intrahepatic portosystemic shunt) Has ultrasound done every 6 months last done 09/2023 Hx of basal cell carcinoma excision Hx of Achilles tendon repair History of esophagogastroduodenoscopy (EGD) (~01/16/20) multiple Previous back surgery Sanchez siva placement 1972 and then removal 1980 S/P hernia repair S/P shoulder surgery Family History Mother Breast cancer Sister Breast cancer Heart disease Diabetes Sister Breast cancer Hypertension Brother Cancer leukemia Brother Heart disease Diabetes Hypertension Maternal Grandmother Heart disease Father Diabetes Hypertension Social History Smoking/Tobacco Use Status: Never Smoking risk assessment performed?: Yes Alcohol Intake: former Year quit: 2018 Drug use: Current Sobriety Substance use type: does not use and former substance user Details: 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 Current gender identity: male What is your relationship status?: Panel score (0-1 are the most socially isolated patients): 0 Do you feel safe at home: Yes Additional Social history: lives alone Meds Allergies and Home Medications Allergies Allergy/AdvReac Type Severity Reaction Status Date / Time oxycodone (From OxyContin) AdvReac Intermediate Other (See Verified 01/25/25 01:22 Comment) zolpidem (From Ambien) AdvReac Other (See Verified 01/25/25 01:22 Comment) Home Medications Medication Instructions Recorded Confirmed Type atorvastatin 20 mg tablet 20 mg PO DAILY 08/19/23 02/16/25 History bimatoprost 0.01 % eye drops 1 drp ophthalmic (eye) DAILY 08/19/23 02/16/25 History (Mary) lisinopril 10 mg tablet 10 mg PO DAILY 08/19/23 02/16/25 History pantoprazole 40 mg tablet,delayed 40 mg PO DAILY #0 tabs 01/31/24 02/16/25 Rx release sildenafil 100 mg tablet 100 mg PO PRN PRN 06/28/24 02/16/25 History cholecalciferol (vitamin D3) 25 25 mcg PO DAILY 07/16/24 02/16/25 History mcg (1,000 unit) capsule (Vitamin D3) latanoprost 0.005 % eye drops 1 drp ophthalmic (eye) QPM 07/16/24 02/16/25 History mecobalamin (vitamin B12) 500 mcg 500 mcg PO DAILY 07/16/24 02/16/25 History chewable tablet turmeric root extract 300 mg 300 mg PO DAILY 07/16/24 02/16/25 History capsule (Curica Turmeric) zinc glycinate 7.5 mg chewable 7.5 mg PO DAILY 07/16/24 02/16/25 History tablet lactulose 10 gram/15 mL oral 20 g (30 mL) PO .COMPLEX #1,200 mL 11/06/24 02/16/25 Rx solution acetaminophen 325 mg tablet 650 mg (2 x 325 mg) PO Q4H PRN PRN 01/26/25 02/16/25 Rx #100 tabs metformin 500 mg tablet,extended 500 mg PO QPM #90 tabs 01/26/25 02/16/25 Rx release 24 hr (Glucophage XR) Exam Narrative Exam Narrative: Well-appearing older gentleman laying in bed in no acute distress, awake, alert, oriented to person place and situation, though has intermittent difficulty with word finding, heart regular rhythm, was good auscultation bilaterally, abdomen soft, nontender, nondistended Results Labs 02/16/25 20:15 02/16/25 20:15 Labs: Laboratory Results - last 24 hr 02/16/25 20:15 WBC 3.34 L RBC 3.73 L Hgb 11.8 L Hct 34.3 L MCV 92 MCH 31.6 MCHC 34.4 RDW 14.0 Plt Count 106 L MPV 10.2 Immature Gran % 0.3 Neutrophils % 57.4 Lymphocytes % 21.9 Monocytes % 12.9 Eosinophils % 6.6 Basophils % 0.9 Nucleated RBC % 0.0 Absolute Neutrophils 1.92 Absolute Lymphocytes 0.73 L Absolute Monocytes 0.43 Absolute Eosinophils 0.22 Absolute Basophils 0.03 PT 11.7 H INR 1.2 H APTT 21.6 Sodium 141 Potassium 4.2 Chloride 109 H Carbon Dioxide 24.6 Anion Gap 7.4 BUN 14 Creatinine 1.0 Est GFR (CKD-EPI 2020) 80.47 Glucose 392 H Calcium 8.2 L Magnesium 1.8 Total Bilirubin 1.2 H AST 24 ALT 24 Alkaline Phosphatase 109 Ammonia 83 H Total Protein 6.4 Albumin 3.0 L Last Vital Signs Temp 99.1 F 02/16/25 20:13 Pulse 57 L 02/16/25 20:30 Resp 19 02/16/25 20:30 BP 208/61 H 02/16/25 20:16 Pulse Ox 94 02/16/25 20:30 Time Spent Time spent with Patient: >75 minutes Time was spent: preparing to see the patient(eg.review tests), obtaining and/or reviewing separately otained hiistory, ordering medications,tests, procedures, referring, communicating with other health healthcare corporate account director, indepentently interpreting results, counseling the patient and care coordination
[2025-02-16 21:27] LABS: Glucose 500 mg/dL (Negative)
[2025-02-16 21:33] LABS: C & S Indicated? No; WBC 0-2 HPF (0-5)
--- NOTE | 2025-02-16 21:44 | W.PC.ACHO ---
Registration Status: REG ER Primary Language: Preferred Language: ED Information & Data Chief Complaint Fall/Non TraumaCriteria 02/16/25 20:19 Triage Note Pt arrives to the ED with 02/16/25 20:04 complaints of severe headache that he has had all day. Pt states he became dizzy this evening and fell from standing. Denies blood thinners Medical / Surgical History (Last Reviewed 02/16/25 @ 21:18 by Meryl Vazquez NP) Alcohol use disorder in remission Esophagitis Duodenal ulcer disease Melena Nausea & vomiting Hx of caloric malnutrition Anemia Drug abuse Left inguinal hernia Hepatitis C Hx of non-insulin dependent diabetes mellitus Hx of pneumothorax History of rib fracture Hx of fracture of clavicle Scoliosis Hepatic encephalopathy Pancytopenia Red blood cell antibody positive with compatible PRBC difficult to obtain History of GI bleed (Last Reviewed 02/16/25 @ 21:18 by Meryl Vazquez NP) S/P TIPS (transjugular intrahepatic portosystemic shunt) Hx of basal cell carcinoma excision Hx of Achilles tendon repair History of esophagogastroduodenoscopy (EGD) (~01/16/20) Previous back surgery S/P hernia repair S/P shoulder surgery Most Recent Vital Signs Temperature 37.3 C 02/16/25 20:13 Temperature Source Tympanic 02/16/25 20:13 Pulse 57 L 02/16/25 20:30 Pulse 57 L 02/16/25 20:30 Respiratory Rate 19 02/16/25 20:30 Blood Pressure 208/61 H 02/16/25 20:16 Blood Pressure Mean 118 02/16/25 20:16 Pulse Oximetry 94 02/16/25 20:30 Oxygen Delivery Method Room Air 02/16/25 20:04 Oxygen Flow Rate 0 02/16/25 20:04 Pain Level 9 02/16/25 21:01 Allergies oxycodone (From OxyContin) Adverse Reaction (Intermediate, Verified 01/25/25 01:22) Other (See Comment) confusion zolpidem (From Ambien) Adverse Reaction (Verified 01/25/25 01:22) Other (See Comment) sleep driving Precautions Isolation Standard precaution 02/16/25 20:11 Active Medications Generic Name Dose Route Start Last Admin Trade Name Freq PRN Reason Stop Dose Admin Sodium Chloride 0 ml 02/16/25 20:14 02/16/25 20:20 Normal Saline Flush 10 Ml Syr IVP 10 ml PRN PRN Administration IV IV Catheter Type [Right Saline Lock Antecubital] IV Catheter Gauge [Right 18 Antecubital] Diet Orders Category Date Time Status DIET [Diabetes Consistent CHO] [DIET] Nutrition 02/17/25 Breakfast Ordered Diagnostics 02/16/25 02/16/25 02/16/25 Range/Units 21:16 20:54 20:15 WBC 3.34 L (4.4-10.8) 10^3/uL RBC 3.73 L (4.36-5.78) 10^6/uL Hgb 11.8 L (13.5-17.5) g/dL Hct 34.3 L (40.0-50.0) % MCV 92 (80-95) fL MCH 31.6 (27.0-33.0) pg MCHC 34.4 (32.0-36.0) % RDW 14.0 (11.8-14.1) % Plt Count 106 L (130-400) 10^3/uL MPV 10.2 (8.0-11.0) fL Immature Gran % 0.3 % Neutrophils % 57.4 % Lymphocytes % 21.9 % Monocytes % 12.9 % Eosinophils % 6.6 % Basophils % 0.9 % Nucleated RBC % 0.0 (0.0-0.3) % Absolute Neutrophils 1.92 (1.2-6.7) 10^3/uL Absolute Lymphocytes 0.73 L (1.2-3.4) 10^3/uL Absolute Monocytes 0.43 (0.1-0.8) 10^3/uL Absolute Eosinophils 0.22 (0.0-0.7) 10^3/uL Absolute Basophils 0.03 (0.0-0.2) 10^3/uL PT 11.7 H (9.1-11.1) sec INR 1.2 H (0.9-1.1) APTT 21.6 (20.6-30.2) sec Sodium 141 (136-145) mmol/L Potassium 4.2 (3.5-5.1) mmol/L Chloride 109 H (98-107) mmol/L Carbon Dioxide 24.6 (21.0-32.0) mmol/L Anion Gap 7.4 (3-11) mmol/L BUN 14 (7-18) mg/dL Creatinine 1.0 (0.70-1.30) mg/dL Est GFR (CKD-EPI 2020) 80.47 (mL/min/1.73m2) Glucose 392 H (74-106) mg/dL Calcium 8.2 L (8.5-10.1) mg/dL Magnesium 1.8 (1.8-2.4) mg/dL Total Bilirubin 1.2 H (0.2-1.0) mg/dL AST 24 (15-37) U/L ALT 24 (16-63) U/L Alkaline Phosphatase 109 (46-116) U/L Ammonia 83 H (11-32) umol/L Total Protein 6.4 (6.4-8.2) g/dL Albumin 3.0 L (3.4-5.0) g/dL Urine Color Yellow (Yellow) Urine Clarity Clear (Clear) Urine pH 6.0 (5-8) Ur Specific [place] 1.025 (1.005-1.025) Urine Protein 30 H (Neg-Trace) mg/dL Urine Ketones Negative (Negative) mg/dL Urine Blood Trace-intact H (Negative) Urine Nitrite Negative (Negative) Urine Bilirubin Negative (Negative) Urine Urobilinogen 1.0 H (Up to 0.2) mg/dL Ur Leukocyte Esterase Negative (Negative) Urine RBC 3-5 H (0-2) HPF Urine WBC 0-2 (0-5) HPF Ur Epithelial Cells Negative (Negative) HPF Urine Crystals Negative (Negative) HPF Urine Bacteria Few (Negative) HPF Urine Casts Negative (Negative) LPF Urine Mucus Negative (Negative) Ur Culture Indicated? No Urine Glucose 500 H (Negative) mg/dL Add-On Test Request Pending Intake and Output - 24 Hour Total 02/16/25 20:01 thru 02/16/25 20:04 Weight 90.718 kg Falls Risk Assessment History of Falls Admit Due to Fall 02/16/25 20:11 Contributing Factors Unstable 02/16/25 20:11 Ambulatory Aids Uses ambulatory device + 02/16/25 20:11 Tubes/Lines With any additional score 02/16/25 20:11 Gait Evaluation W/any additional score 02/16/25 20:11 Cognition No cognitive impairment 02/16/25 20:11 Fall Total Score 98 02/16/25 20:11 Level of Risk Maximum Risk 02/16/25 20:11 Problems (Last Reviewed 02/16/25 @ 21:18 by Meryl Vazquez NP) Increased ammonia level (Acute) Encephalopathy, hepatic (Acute) Type 2 diabetes mellitus (Acute) Hypertension (Chronic) Pancytopenia (Chronic) Liver disease (Acute) Hepatic encephalopathy (Acute) Attestation Statement: By documenting the first initial, last name, and credentials of the reporting nurse below, both parties acknowledge that all relevant information regarding the patient handoff has been communicated, and that all questions have been addressed to ensure continuity and safety of care. Additional Patient Information/Comments: On RA. RAC 18 PIV. Slurry speech. Fall risk. A+Ox3 Report Received From: Shala BOONE
[2025-02-16 21:47] LABS: Lab Add On Test DONE
[2025-02-16] MEDS: Insulin Aspart 300 UNITS/3 ML PEN SC (22:37)
[2025-02-17] MEDS: Acetaminophen 325 MG TAB 650 MG PO ×2 (00:46→07:46)
[2025-02-17 03:01] VITALS: BP 180/61; PULSE 49; RESP 18; TEMP 36.6; O2SAT 94
[2025-02-17] MEDS: Ibuprofen 600 MG TAB PO ×2 (03:17→19:42)
[2025-02-17 05:18] VITALS: BP 179/69; PULSE 52
[2025-02-17] MEDS: MORPHine 2 MG/ML SYR 1 MG IVP ×5 (06:23→23:35)
[2025-02-17 06:31] LABS: HCT 32.4 % (40.0-50.0); HGB 11.6 g/dL (13.5-17.5); MCH 33.0 pg (27.0-33.0); MCHC 35.8 % (32.0-36.0); MCV 92 fL (80-95); MPV 8.9 fL (8.0-11.0); RBC 3.52 10^6/uL (4.36-5.78); RDW 13.8 % (11.8-14.1); RDW-SD 46.6 fL; WBC 2.84 10^3/uL (4.4-10.8)
[2025-02-17 06:42] LABS: Anion Gap 7.5 mmol/L (3-11); BUN 15 mg/dL (7-18); CO2 24.5 mmol/L (21.0-32.0); Calcium 8.0 mg/dL (8.5-10.1); Chloride 112 mmol/L (98-107); Glucose 196 mg/dL (74-106); Magnesium 1.8 mg/dL (1.8-2.4); Potassium 3.8 mmol/L (3.5-5.1); Sodium 144 mmol/L (136-145)
[2025-02-17 06:50] LABS: Platelet Count 99 10^3/uL (130-400)
[2025-02-17 07:11] VITALS: BP 172/64; PULSE 52; RESP 18; TEMP 36.7; O2SAT 93
[2025-02-17] MEDS: Pantoprazole 40 MG TABCR PO ×2 (07:46→19:42)
[2025-02-17] MEDS: Lisinopril 10 MG TAB PO (07:46)
[2025-02-17] MEDS: Lactulose 20 GM/30 ML CUP PO ×3 (07:47→15:29)
[2025-02-17] MEDS: Insulin Aspart 300 UNITS/3 ML PEN SC ×4 (07:47→22:25)
[2025-02-17] MEDS: Enoxaparin 40 MG/0.4 ML SYR SC (07:47)
[2025-02-17] MEDS: Normal Saline Flush 10 ML SYR IVP ×2 (07:48→19:46)
--- NOTE | 2025-02-17 08:23 | PDOC.CMIN ---
Date of service: 02/17/25 Time of Service: 08:33 Care Management Initial Assmt Initial Assessment Reason for Hospitalization: Hepatic encephalopathy Functional Status/Living Situation Patient Presentation: Alonzo, who prefers to be called “Dong,” was lying in bed and watching TV at the time of CM met with him. Dong was previously admitted on 01/25 for hepatic encephalopathy, treated medically, and discharged on 01/26. He returned to the ED with complaints of a frontal headache over the past several days, accompanied by dizziness and a fall earlier today. He has since been admitted for further evaluation and management. Per report, Dong stated that he has been having difficulty “putting his words together” (see ED documentation). During the encounter, Dong was pleasant, cooperative, and appropriately engaged in conversation. He reported living alone in [facility], noting that his partner, Najma, visits frequently but is currently out of town. PT evaluated Dong during his previous admission and determined that home health or outpatient therapy services were not necessary at that time. Dong stated that he retired following his last hospitalization and remains independent at baseline, including driving. He shared that he previously received home health services but does not feel they are needed currently, despite having two recent admissions. He also expressed that he does not believe PT would be beneficial during this admission. Dong reported that he had been doing well prior to experiencing a sudden episode of “not thinking clearly.” He initially planned to wait until Tuesday to contact his primary care provider but decided to come to the hospital due to a severe headache that he described as “feeling like my head is split open.” CM requested a palliative care consult to assist with symptom management and to explore additional community supports for Dong. CM will continue to follow. 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 Enjoys being outside Medications Medication Management: No Issues/Barriers identified Advance Directives Advance Directives: Do you have an Advance Directive: Y 01/03/25, 11:02 AD On File at [facility]: Y 01/03/25, 11:02 Date Asked 12/05/19 02/04/25, 13:09 AD Date Reviewed 02/16/25 02/16/25, 20:23 COLST On File at [facility] COLST Date Scanned Code Status Resuscitation Status DNR/DNI Portal Pt does not currently have a portal and education provided: Yes Insurance Coverage/Financial Issues Insurance: BC/[place] [facility] - [id number] FINANCIAL ASST 50 - [id number] Care Team Visit Care Team Role Provider Type Andrey Sheppard MD MD [facility] STAFF PHYSICIAN George Lou Primary Care Provider NON-[facility] STAFF PHYSICIAN Meryl Vazquez NP Emergency Provider NURSE PRACTITIONER Lester Monterroso MD Admit Provider [facility] STAFF PHYSICIAN Attending Provider Discharge Potential Discharge Needs: PCP F/U Appt Anticipated Barriers to Discharge: None Identified Patient/Family Education Needs: Review discharge instructions, discuss Ask Me Three Transportation: Private vehicle Plan: Anticipate Dong will be discharged home once medically ready.. He will follow up with his community provider, and continue per his plan of care. He will likely transport via private vehicle. CM will continue to follow. Social Determinants of Health Screening Social Determinants of health last assessed in clinic: 02/17/25 Will the Patient Participate in the Screening?: Yes Do you worry about having a steady place to live?: no Problems where you live: no known problems In the past 12 months, have you had to go without electric, gas, oil or water in your home?: no 1. Within the past 12 months, we worried whether our food would run out before we got money to buy more.: Don't know/refused 2. Within the past 12 months, the food we bought just didn't last and we didn't have money to get more.: Don't know/refused Has lack of transportation kept you from medical appointments or from doing things needed for daily living?: no Has anyone in your life made you feel unsafe or unsupported?: no How hard is it for you to pay for the very basics like food, housing, medical care, and heating? Would you say it is:: Not hard at all Do you want help finding or keeping work or a job?: I do not need or want help If for any reason you need help with day-to-day activities such as bathing, preparing meals, shopping, managing finances, etc., do you get the help you need?: I don’t need any help How often do you feel lonely or isolated from those around you?: Never Do you speak a language other than Citizen [place] at home?: No Does the patient want assistance with any of the above?: No PFSH All Active Problems (Updated 02/16/25 @ 21:22 by Meryl Vazquez NP) Increased ammonia level (Acute) Encephalopathy, hepatic (Acute) Type 2 diabetes mellitus (Acute) Upper respiratory infection (Acute) Hypertension (Chronic) Pancytopenia (Chronic) Liver disease (Acute) Acute hyponatremia (Acute) Hepatic encephalopathy (Acute) Advance care planning (Acute) Esophageal varices (Acute) Palliative care patient (Acute) Closed fracture of left distal fibula (Acute) Bimalleolar fracture of left ankle (Acute ~06/28/24) Numbness of right hand (Acute) Peripheral neuropathy (Acute) Right carpal tunnel syndrome (Acute) Duodenitis (Acute) Liver mass, left lobe (Acute) 2.6 cm bx at [facility] on 02/06 Cholelithiasis (Acute) Gastritis (Acute) Esophageal reflux (Chronic) Left rotator cuff tear (Acute) Gallstones (Chronic) Cirrhosis (Chronic) Medical History Alcohol use disorder in remission Esophagitis Duodenal ulcer disease Melena Nausea & vomiting Hx of caloric malnutrition Anemia Drug abuse Left inguinal hernia Hepatitis C Fully treated Hx of non-insulin dependent diabetes mellitus Hx of pneumothorax History of rib fracture Hx of fracture of clavicle Scoliosis Hepatic encephalopathy Pancytopenia Red blood cell antibody positive with compatible PRBC difficult to obtain History of GI bleed variceal Surgical History S/P TIPS (transjugular intrahepatic portosystemic shunt) Has ultrasound done every 6 months last done 09/2023 Hx of basal cell carcinoma excision Hx of Achilles tendon repair History of esophagogastroduodenoscopy (EGD) (~01/16/20) multiple Previous back surgery Sanchez siva placement 1972 and then removal 1980 S/P hernia repair S/P shoulder surgery Family History Mother Breast cancer Sister Breast cancer Heart disease Diabetes Sister Breast cancer Hypertension Brother Cancer leukemia Brother Heart disease Diabetes Hypertension Maternal Grandmother Heart disease Father Diabetes Hypertension Social History Smoking/Tobacco Use Status: Never Smoking risk assessment performed?: Yes Alcohol Intake: former Year quit: 2019 Drug use: Current Sobriety Substance use type: does not use and former substance user Details: 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 Current gender identity: male What is your relationship status?: Panel score (0-1 are the most socially isolated patients): 0 Do you feel safe at home: Yes Additional Social history: lives alone Readmission Within the Past 30 Days Yes or No: Yes Date of First Admission Date of 1st Admission: 02/25/25 Date of this Admission Date of Admission: 02/16/25 This admission was: Through ED Office Visit Since 1st Admission Have you seen your PCP in the office since discharge?: Yes Date of PCP Appointment: 02/04 Had an appointment Been Scheduled?: Yes Speicalist Appointments Have you seen any other specialist since your 1st Admission?: No I. Interview patient and/or Family Difficulty reaching your doctor or getting an office appt?: No Have you had trouble purchasing/ or taking medication?: No Have you had trouble with getting meals at home?: No Did you feel ready for discharge when you left the last time: Yes Were services received that you thought were set up on disch: Yes Did you call your physician beore you came to the ED?: No Did your physician tell you to come in?: No If the patient had a VNA ordered Did the patient have a VNA order?: No Ask the Care Team Members: What do you think caused the patient to be readmitted: Patient developed similar symptoms to previous admissions and presented to ED ED visits How many ED visits in the past 12 months: 4 Assessment for Readmission Summary of readmission circumstances, based upon interviews: Patient developed similar symptoms to previous admissions and presented to ED
--- NOTE | 2025-02-17 09:59 | W.PM.PROGNOT ---
Date of Service Date of service: 02/17/25 Time of Service: 08:00 Assessment and Plan Assessment and plan (1) Hepatic encephalopathy: Status: Acute Assessment and plan: - Patient has longstanding history of liver disease, and appears to have hospitalization for hepatic encephalopathy roughly every 6 to 12 months - Upon reading patient's most recent palliative care note, there is patient has difficulty appropriately titrating his lactulose, and has been known to stop taking it due to frequent bowel movements - Patient more confused upon arrival in the emergency department ammonia level was noted to be 83 - Will continue lactulose until mental status is improved and titrate to 3-4 loose bowel movements a day February 17: Some improvement in mental status but he remains confused. 3 stools recorded last 24 hours. Thrombocytopenia 99 consistent with longstanding hepatic disease; continue VTE ppx enoxaparin. (2) Liver disease: Status: Acute Assessment and plan: - Patient has a history of hepatitis C, alcoholic cirrhosis, as well as liver mass which was removed - Patient is also status post TIPS - Patient has been abstinent from alcohol for the last 7 years February 17: Improving hepatic encephalopathy with consistent dosing of lactulose (3) Hypertension: Status: Chronic Assessment and plan: - Noted to be hypertensive in the emergency department with blood pressure as high as 215/58, last blood pressure at 2015 was 208/61 - Will continue home lisinopril - Will evaluate patient's blood pressure upon arrival to [facility] if it remains elevated will give as needed dose of hydralazine and then adjust a.m. antihypertensives as needed February 17: normotensive today, continuing home regimen (4) Type 2 diabetes mellitus: Status: Acute Assessment and plan: - Blood sugar noted to be 392 - Will continue home metformin - Will also place patient on sliding scale insulin carb consistent diet February 17: A1C 8.4. Fasting glucose 196. Continue metformin and sliding scale insulin (5) Pancytopenia: Status: Chronic Assessment and plan: - Mild, though currently baseline Subjective Subjective Interval history since last seen: Mr. Uribna is comfortable in bed. He continues to have confusion which may be at baseline. He is stooling appropriately with lactulose regular dosing. Exam Narrative Exam Narrative: General: This is a pleasant man in no distress HEENT: Normocephalic, atraumatic CV: RRR Resp: CTAB Abd: soft, NTND MSK: voluntary motion x4 Neuro: awake, alert, confused, word finding difficulties Objective Last Vital Signs Temp 36.7 C 02/17/25 07:11 Pulse 52 L 02/17/25 07:11 Resp 18 02/17/25 07:11 BP 172/64 H 02/17/25 07:11 Pulse Ox 93 02/17/25 07:11 Laboratory Results - last 24 hr 02/16/25 02/16/25 02/17/25 20:15 21:16 06:16 WBC 3.34 L 2.84 L RBC 3.73 L 3.52 L Hgb 11.8 L 11.6 L Hct 34.3 L 32.4 L MCV 92 92 MCH 31.6 33.0 MCHC 34.4 35.8 RDW 14.0 13.8 Plt Count 106 L 99 L MPV 10.2 8.9 Immature Gran % 0.3 Neutrophils % 57.4 Lymphocytes % 21.9 Monocytes % 12.9 Eosinophils % 6.6 Basophils % 0.9 Nucleated RBC % 0.0 Absolute Neutrophils 1.92 Absolute Lymphocytes 0.73 L Absolute Monocytes 0.43 Absolute Eosinophils 0.22 Absolute Basophils 0.03 PT 11.7 H INR 1.2 H APTT 21.6 Sodium 141 144 Potassium 4.2 3.8 Chloride 109 H 112 H Carbon Dioxide 24.6 24.5 Anion Gap 7.4 7.5 BUN 14 15 Creatinine 1.0 1.0 Est GFR (CKD-EPI 2020) 80.47 80.47 Glucose 392 H 196 H Calcium 8.2 L 8.0 L Magnesium 1.8 1.8 Total Bilirubin 1.2 H AST 24 ALT 24 Alkaline Phosphatase 109 Ammonia 83 H Total Protein 6.4 Albumin 3.0 L Urine Color Yellow Urine Clarity Clear Urine pH 6.0 Ur Specific [place] 1.025 Urine Protein 30 H Urine Ketones Negative Urine Blood Trace-intact H Urine Nitrite Negative Urine Bilirubin Negative Urine Urobilinogen 1.0 H Ur Leukocyte Esterase Negative Urine RBC 3-5 H Urine WBC 0-2 Ur Epithelial Cells Negative Urine Crystals Negative Urine Bacteria Few Urine Casts Negative Urine Mucus Negative Ur Culture Indicated? No Urine Glucose 500 H Ethyl Alcohol < 3.0 Add-On Test Request DONE Time Spent with Patient Time Spent with Patient: 25-34 minutes Time was spent: preparing to see the patient(eg.review tests), obtaining and/or reviewing separately otained hiistory, ordering medications,tests, procedures, referring, communicating with other health childcare attendant, indepentently interpreting results, counseling the patient and care coordination
[2025-02-17 11:58] LABS: Lab Add On Test DONE
--- NOTE | 2025-02-17 12:03 | PHA.REVIEW2 ---
Pharmacy Admission Review Admission Clinical Review Admission Pharmacy Review: Increased ammonia level (Acute) Encephalopathy, hepatic (Acute) Type 2 diabetes mellitus (Acute) Liver disease (Acute) Hepatic encephalopathy (Acute) oxycodone (From OxyContin) Adverse Reaction (Intermediate, Verified 01/25/25 01:22) Other (See Comment) zolpidem (From Ambien) Adverse Reaction (Verified 01/25/25 01:22) Other (See Comment) Resuscitation Status DNR/DNI Height 5 ft 10 in Weight 90.718 kg Pharmacy Admission Review Renal Dosing Renal Dosing: BUN 15 mg/dL (7-18) 02/17/25 06:16 Creatinine 1.0 mg/dL (0.70-1.30) 02/17/25 06:16 Medications needing adjustments: Reviewed (CrCl 76.75 mL/min) List of meds needing interventions: Current medications are okay Anticoagulation Anticoagulation: Hgb 11.6 g/dL (13.5-17.5) L 02/17/25 06:16 Hct 32.4 % (40.0-50.0) L 02/17/25 06:16 Plt Count 99 10^3/uL (130-400) L 02/17/25 06:16 INR 1.2 (0.9-1.1) H 02/16/25 20:15 Creatinine 1.0 mg/dL (0.70-1.30) 02/17/25 06:16 DVT Prophylaxis: Reviewed Medications: Enoxaparin (40mg daily) Opiate Usage Evaluate Pain Scale/Pains Meds: Reviewed (morphine 1mg IVP q4h PRN - 2mg/24hrs) Scheduled Bowel Reg ordered if on Opiates?: No (PRN Miralax) Relevant Labs Relevant Labs: Sodium 144 mmol/L (136-145) 02/17/25 06:16 Potassium 3.8 mmol/L (3.5-5.1) 02/17/25 06:16 Chloride 112 mmol/L (98-107) H 02/17/25 06:16 Magnesium 1.8 mg/dL (1.8-2.4) 02/17/25 06:16 Electrolytes, C-Reactive P, ESR: Reviewed DM Control DM Control: Glucose 196 mg/dL (74-106) H 02/17/25 06:16 Finger Stick Blood Glucose 329 1159 Finger Stick Blood Glucose 329 1139 Finger Stick Blood Glucose 329 1139 Finger Stick Blood Glucose 180 0747 Finger Stick Blood Glucose 180 0745 Finger Stick Blood Glucose 180 0745 DM Control: Reviewed Insulin Dosing, Diabetic Medication: has order for SS insulin and metformin 500mg XR daily Cardiac Review Cardiac Review: Blood Pressure 172/64 0711 Blood Pressure 179/69 0518 Blood Pressure 180/61 0301 BP, HR, EF%: Reviewed (HR low 50s this morning) List meds needing interventions: Has order for lisinopril 10mg daily QTc Review QTc: Reviewed (437 from 02/16/25) IV to PO Switch IV Medications: Reviewed (morphine) Home Meds Home Med List reviewed: Intervened Relevent Home Meds Not ordered & why?: Lumigan, vitamin D3, lantanoprost, vitamin B12, sildenafil (PRN), tumeric and zinc Asked nurse to confirm if patient takes pantoprazole once or twice daily. On home med list as once daily but prescription per external fill is for twice daily. Per nurse patient takes twice daily. Updated home med list and order - provider aware Recently filled bisoprolol but not on home med list. Asked nurse to confirm with patient. Per nurse patient does take at home. Added to home med list, per provider holding for now. Current Meds Current Medication Order Review: Intervened Comments: Changed IV ED access
[2025-02-17 12:25] LABS: Hemoglobin A1C 8.4 % (<5.7)
[2025-02-17 15:14] VITALS: BP 144/55; PULSE 55; RESP 16; TEMP 36.6; O2SAT 94
[2025-02-17] MEDS: metFORMIN C.R. 500 MG TABCR PO (16:59)
[2025-02-17 19:06] VITALS: BP 140/57; PULSE 54; RESP 18; TEMP 36.8; O2SAT 93
[2025-02-17] MEDS: Atorvastatin 20 MG TAB PO (19:42)
[2025-02-17 23:46] VITALS: BP 156/63; PULSE 53; RESP 18; TEMP 37.2; O2SAT 96
--- NOTE | 2025-02-18 | DI.CT_ITS ---
Exam(s) CT HEAD WO EXAM: CT HEAD WO CLINICAL HISTORY: cirrhosis with coagulopathy, new headache. TECHNIQUE: Imaging Protocol: Axial computed tomography images with coronal and sagittal reformatted images were created and reviewed COMPARISON: CT CT HEAD WO from 02/16/2025 FINDINGS: There are no skull fractures. There is no fluid in the visualized paranasal sinuses. There is no evidence of intracranial hemorrhage, mass effect, or shift of midline structures. There are no extra-axial fluid collections. Ventricular size is slightly prominent but unchanged. There is calcification in the falx but no evidence of meningioma. There is symmetrical bilateral periventricular hypodensity again noted consistent with chronic small vessel disease. No obvious acute infarct. IMPRESSION: No acute intracranial findings on this noninfused CT scan of the brain. Symmetrical bilateral periventricular microvascular disease. If clinically indicated follow-up MRI diffusion imaging can be performed to determine if there has been acute ischemic event. Preliminary [facility] report was reviewed RADIATION DOSE DELIVERED: 904.96mGy.cm Total DLP DATA REPOSITORY: All CT scans at this facility are submitted to the National Radiology Data Registry (NRDR) Dose Index Registry (DIR) with the [employer] (ACR). RADIATION OPTIMIZATION: All CT scans at this facility use at least one of these dose optimization techniques: automated exposure control; mA and/or kV adjustment per patient size (includes targeted exams where dose is matched to clinical indication); or iterative reconstruction.
[2025-02-18] MEDS: Melatonin 3 MG TAB 6 MG PO ×2 (01:10→02:15)
--- NOTE | 2025-02-18 01:55 | W.EVENT ---
Date of service: 02/18/25 Time of Service: 01:55 Event Note: 69 yo M with cirrhosis s/p TIPS, AUD in jail remission, admitted with hepatic encephalopathy c/o increasing headache up to 8/10 tonight. Headache band-like around sides of head, up to 8/10. He did get ibuprofen and 1mg of morphine with some improvement, down to 6/10. He refused acetaminophen. He states he has had headaches in the past but this is unusual for him. He did fall from standing before admission, CT on admission was negative. BP has also been above normal but not as high as when he came in and he had a bad headache then as well. He is awake and alert. Gives linear history, normal speech. Neurologic exam intact including cranial nerves, strength/sensation, negative pronator drift, coordination, no tremor or other abnormal movement. Heart RRR, 2/6 murmur, lung clear, abdomen soft and NT/ND. Given headache in patient at risk of subacute subdural, will repeat CT. He has not had signs of infection, but could consider infectious work up including Lyme, even LP if HAs continue as he is immune suppressed. We discussed up to 2g acetaminophen/day is safe. Ibuprofen, on the other hand, should not be used in patients with cirrhosis and should be discontinued. Morphine as back-up. Looks like home bisoprolol has not been given here, which may be the issue, will resume this. Appears his encephalopathy is clearing with lactulose. Time Spent with Patient Time spent in critical care(minutes): 45 Time Spent Included: Coordination of care, Chart review, Time at immediate bedside and Discussing critically ill care with other medical staff
[2025-02-18] MEDS: Acetaminophen 325 MG TAB 650 MG PO ×2 (02:14→04:09)
--- NOTE | 2025-02-18 02:32 | DI.VRAD_ITS ---
PROCEDURE INFORMATION: Exam: CT Head Without Contrast Exam date and time: 02/18/2025 2:21 AM Age: 69 years old Clinical indication: Pain; Headache not specified; Cirrhosis with coagulopathy, new headache TECHNIQUE: Imaging protocol: Computed tomography of the head without contrast. Radiation optimization: All CT scans at this facility use at least one of these dose optimization techniques: automated exposure control; mA and/or kV adjustment per patient size (includes targeted exams where dose is matched to clinical indication); or iterative reconstruction. COMPARISON: CT HEAD WO 02/16/2025 8:40 PM FINDINGS: Brain: No acute intracranial hemorrhage or mass lesions. No midline shift. Normal pandey-white differentiation. There are extensive scattered deep and periventricular white matter changes likely associated with chronic microvascular ischemia. Cerebral ventricles: The ventricles and sulci are prominent suggesting volume loss greater than expected for patient age. Paranasal sinuses: Visualized sinuses are unremarkable. No fluid levels. Mastoid air cells: Visualized mastoid air cells are well aerated. Bones: Unremarkable. No acute fracture. Soft tissues: Unremarkable. IMPRESSION: 1. No acute intracranial findings. 2. Findings likely associated with chronic microvascular ischemia. Dictated and Authenticated by: Juliette Castillo MD. Orderin Klaus Macdonald MD
[2025-02-18 02:39] VITALS: BP 158/60; PULSE 52; RESP 18; TEMP 36.4; O2SAT 94
[2025-02-18] MEDS: Normal Saline Flush 10 ML SYR IVP ×2 (04:10→07:59)
[2025-02-18] MEDS: MORPHine 2 MG/ML SYR 1 MG IVP ×2 (04:10→07:59)
[2025-02-18 07:06] LABS: ALT 14 U/L (16-63); AST 19 U/L (15-37); Albumin 2.7 g/dL (3.4-5.0); Alkaline Phosphatase 93 U/L (46-116); Anion Gap 6.6 mmol/L (3-11); BUN 20 mg/dL (7-18); Bilirubin, Total 1.4 mg/dL (0.2-1.0); CO2 25.4 mmol/L (21.0-32.0); Calcium 8.5 mg/dL (8.5-10.1); Chloride 109 mmol/L (98-107); Glucose 139 mg/dL (74-106); Potassium 4.5 mmol/L (3.5-5.1); Sodium 141 mmol/L (136-145); Total Protein 5.8 g/dL (6.4-8.2)
[2025-02-18 07:27] VITALS: BP 149/64; PULSE 47; RESP 16; TEMP 36.5; O2SAT 94
[2025-02-18 07:48] VITALS: BP 156/75; PULSE 51; O2SAT 94
[2025-02-18] MEDS: Lactulose 20 GM/30 ML CUP PO ×3 (07:59→15:16)
[2025-02-18] MEDS: Pantoprazole 40 MG TABCR PO (07:59)
[2025-02-18] MEDS: Lisinopril 10 MG TAB PO (07:59)
[2025-02-18] MEDS: Enoxaparin 40 MG/0.4 ML SYR SC (09:02)
[2025-02-18] MEDS: Butalbital/Acetaminophen/Caffeine 50/325/40 TAB PO ×2 (10:34→15:15)
[2025-02-18 11:32] VITALS: BP 149/57; PULSE 54; RESP 16; TEMP 36.6; O2SAT 94
[2025-02-18] MEDS: Insulin Aspart 300 UNITS/3 ML PEN SC (12:42)
--- NOTE | 2025-02-18 14:41 | PDOC.CMDIS ---
Date of service: 02/18/25 Time of Service: 14:42 LACE Index Scoring Tool Questions: Length of Stay (in days): 2 Was the patient admitted via the E.D.?: Yes Comorbidities: Liver or Renal Disease E.D. Visits: 2 Answers: Total Score: 12 Risk of Readmission: High Risk Care Management Discharge Plan Reason for Hospitalization: Hepatic Encephalopathy Discharge Plan: Dong will be discharged home today, no new services are indicated at this time. He will follow up with his community provider, and continue per his plan of care. He will via private vehicle. Patient/Family Education Needs: Review of discharge instruction, activity, limitations and plan of care. Discuss ask me three.
--- NOTE | 2025-02-18 14:45 | W.PM.DS.N ---
Date of service: 02/18/25 Time of Service: 08:00 DS: Diagnosis Discharge Diagnosis (1) Hepatic encephalopathy: Status: Deleted (2) Liver disease: Status: Acute (3) Hypertension: Status: Chronic (4) Type 2 diabetes mellitus: Status: Acute (5) Pancytopenia: Status: Chronic Discharge Plan Disposition Patient Disposition: Home Condition: Improving Discharge Details Reason For Visit: Hepatic Encephalopathy Admit Date/Time: 02/16/25 21:17 Admit Provider: Lester Monterroso Attending Provider: Lester Monterroso Primary Care Provider: George Lou Hospital Course Hospital Course: Alonzo Urbina is a 69 year old man presenting February 16 with altered mental status, unsteadiness, headache, confusion and a fall. He had been hospitalized Jan 25- for hepatic encephalopathy. He was again admitted for hepatic encephalopathy, with elevated lipase. He had possibly been missing lactulose doses. He improved with medications and now wants to return home. His friends are supportive of his care and he agrees to take their help with remembering his medications. Home Meds and New Rx's Prescriptions: New ybvaobqhux-[id number] [Fioricet] 50-300-40 mg capsule 1 cap PO Q8H PRNQty: 10 0RF Continued lactulose 10 gram/15 mL solution 20 g PO .COMPLEX Qty: 1200 0RF Rx Instructions: 20 grams orally taking 30 ml every other day and then increases PRN; titrate to 2-3 bowel movements per day latanoprost 0.005 % drops 1 drp ophthalmic (eye) QPM Curica Turmeric 300 mg capsule 300 mg PO DAILY mecobalamin (vitamin B12) 500 mcg tablet,chewable 500 mcg PO DAILY cholecalciferol (vitamin D3) [Vitamin D3] 25 mcg (1,000 unit) capsule 25 mcg PO DAILY zinc glycinate 7.5 mg tablet,chewable 7.5 mg PO DAILY atorvastatin 20 mg tablet 20 mg PO DAILY lisinopril 10 mg tablet 10 mg PO DAILY Lumigan 0.01 % drops 1 drp ophthalmic (eye) DAILY sildenafil 100 mg tablet 100 mg PO PRN PRN Patient Comments: TAKE ONE TABLET BY MOUTH APPROX. 30 MIN PRIOR TO INTERCOURSE acetaminophen 325 mg Tablet 650 mg PO Q4H PRN PRNQty: 100 0RF metformin [Glucophage XR] 500 mg tablet extended release 24 hr 500 mg PO QPM Qty: 90 0RF pantoprazole 40 mg tablet,delayed release (DR/EC) 40 mg PO BID bisoprolol fumarate 5 mg tablet 5 mg PO DAILY Discharge Instructions Instructions: Hepatic encephalopathy Stand Alone Forms: Portal Information Referrals: George Lou [Primary Care Provider, Medicine] Referral Note: Your pcp will call to schedule an appointment, if you haven't heard from them in a couple of days please call to schedule a follow up Activity:: Activity as Tolerated Equipment/Supplies:: No Equipment Needed Diet:: Carb Counting Discharge Orders Discharge Orders: Discharge Order (Routine); Ordered 02/18/25 Ordered By: Andrey Sheppard Discharge Data Discharge Date/Time-TO BE ENTERED AT DEPARTURE: 02/18/25 15:55 DS: Summary Time Spent with Patient providing and/or coordinating discharge services: Less than 30 minutes Status at Discharge Functional status at discharge: independent ambulation Overall status at discharge: patient is back to baseline Mental Status: mental status grossly normal Speech and Movement: speech and movement normal Mood: congruent mood Affect: normal affect Exam Narrative Exam Narrative: General: This is a pleasant man in no distress HEENT: Normocephalic, atraumatic CV: RRR Resp: CTAB Abd: soft, NTND MSK: voluntary motion x4 Neuro: awake, alert, confused, word finding difficulties Psych Mental Status: mental status grossly normal Speech and Movement: speech and movement normal Mood: congruent mood Affect: normal affect DS: Data Vitals/I&O Vitals and I&O: Vital Signs Temperature 36.6 C 02/18/25 11:32 Temperature Source Temporal Artery Scan 02/18/25 11:32 Pulse 54 L 02/18/25 11:32 Pulse 57 L 02/16/25 20:30 Respiratory Rate 16 02/18/25 11:32 Respiratory Effort Normal 02/16/25 22:01 Respiratory Depth Normal 02/16/25 22:01 Respiratory Pattern Normal 02/16/25 22:01 Blood Pressure 149/57 H 02/18/25 11:32 Blood Pressure Mean 87 02/18/25 11:32 Pulse Oximetry 94 02/18/25 11:32 Oxygen Delivery Method Room Air 02/18/25 11:32 Oxygen Flow Rate 0 02/18/25 11:32 Pain Level 0 02/18/25 11:32 Comment nurse notified about high BP 02/17/25 07:11 Intake & Output 02/17/25 02/18/25 02/18/25 23:59 11:59 23:59 Intake Total 810 120 / 120 Output Total 475 / 675 200 / 200 Balance -465 / 135 -80 / -80 Intake: IV 510 Oral 120 / 120 Output: Urine 475 / 675 200 / 200 Other: Urine Color Light Treva Light Treva Urine Appearance Clear Clear Urine Odor Normal Stool Size Moderate Moderate Stool Characteristics Liquid Soft Brown Brown Data Completed and Pending Pending Labs at Discharge: 02/16/25 02/16/25 02/17/25 20:15 21:16 06:16 WBC 3.34 L 2.84 L RBC 3.73 L 3.52 L Hgb 11.8 L 11.6 L Hct 34.3 L 32.4 L MCV 92 92 MCH 31.6 33.0 MCHC 34.4 35.8 RDW 14.0 13.8 Plt Count 106 L 99 L MPV 10.2 8.9 Immature Gran % 0.3 Neutrophils % 57.4 Lymphocytes % 21.9 Monocytes % 12.9 Eosinophils % 6.6 Basophils % 0.9 Nucleated RBC % 0.0 Absolute Neutrophils 1.92 Absolute Lymphocytes 0.73 L Absolute Monocytes 0.43 Absolute Eosinophils 0.22 Absolute Basophils 0.03 PT 11.7 H INR 1.2 H APTT 21.6 Sodium 141 144 Potassium 4.2 3.8 Chloride 109 H 112 H Carbon Dioxide 24.6 24.5 Anion Gap 7.4 7.5 BUN 14 15 Creatinine 1.0 1.0 Est GFR (CKD-EPI 2020) 80.47 80.47 Glucose 392 H 196 H Hemoglobin A1c 8.4 H Calcium 8.2 L 8.0 L Magnesium 1.8 1.8 Total Bilirubin 1.2 H AST 24 ALT 24 Alkaline Phosphatase 109 Ammonia 83 H Total Protein 6.4 Albumin 3.0 L Urine Color Yellow Urine Clarity Clear Urine pH 6.0 [address] [employer] 1.025 Urine Protein 30 H Urine Ketones Negative Urine Blood Trace-intact H Urine Nitrite Negative Urine Bilirubin Negative Urine Urobilinogen 1.0 H Ur Leukocyte Esterase Negative Urine RBC 3-5 H Urine WBC 0-2 Ur Epithelial Cells Negative Urine Crystals Negative Urine Bacteria Few Urine Casts Negative Urine Mucus Negative Ur Culture Indicated? No Urine Glucose 500 H Ethyl Alcohol < 3.0 Lyme Disease Antibody Add-On Test Request DONE DONE 02/18/25 06:20 WBC RBC Hgb Hct MCV MCH MCHC RDW Plt Count MPV Immature Gran % Neutrophils % Lymphocytes % Monocytes % Eosinophils % Basophils % Nucleated RBC % Absolute Neutrophils Absolute Lymphocytes Absolute Monocytes Absolute Eosinophils Absolute Basophils PT INR APTT Sodium 141 Potassium 4.5 Chloride 109 H Carbon Dioxide 25.4 Anion Gap 6.6 BUN 20 H Creatinine 0.8 Est GFR (CKD-EPI 2020) 94.62 Glucose 139 H Hemoglobin A1c Calcium 8.5 Magnesium Total Bilirubin 1.4 H AST 19 ALT 14 L Alkaline Phosphatase 93 Ammonia Total Protein 5.8 L Albumin 2.7 L Urine Color Urine Clarity Urine pH Ur Specific [employer] Urine Protein Urine Ketones Urine Blood Urine Nitrite Urine Bilirubin Urine Urobilinogen Ur Leukocyte Esterase Urine RBC Urine WBC Ur Epithelial Cells Urine Crystals Urine Bacteria Urine Casts Urine Mucus Ur Culture Indicated? Urine Glucose Ethyl Alcohol Lyme Disease Antibody Pending Add-On Test Request PFSH All Active Problems (Updated 02/19/25 @ 00:04 by PARAMJIT BARILLAS) Type 2 diabetes mellitus (Acute) Upper respiratory infection (Acute) Hypertension (Chronic) Pancytopenia (Chronic) Liver disease (Acute) Acute hyponatremia (Acute) Advance care planning (Acute) Esophageal varices (Acute) Palliative care patient (Acute) Closed fracture of left distal fibula (Acute) Bimalleolar fracture of left ankle (Acute ~06/28/24) Numbness of right hand (Acute) Peripheral neuropathy (Acute) Right carpal tunnel syndrome (Acute) Duodenitis (Acute) Liver mass, left lobe (Acute) 2.6 cm bx at [facility] on 02/06 Cholelithiasis (Acute) Gastritis (Acute) Esophageal reflux (Chronic) Left rotator cuff tear (Acute) Gallstones (Chronic) Cirrhosis (Chronic) Medical History Alcohol use disorder in remission Esophagitis Duodenal ulcer disease Melena Nausea & vomiting Hx of caloric malnutrition Anemia Drug abuse Left inguinal hernia Hepatitis C Fully treated Hx of non-insulin dependent diabetes mellitus Hx of pneumothorax History of rib fracture Hx of fracture of clavicle Scoliosis Hepatic encephalopathy Pancytopenia Red blood cell antibody positive with compatible PRBC difficult to obtain History of GI bleed variceal Surgical History S/P TIPS (transjugular intrahepatic portosystemic shunt) Has ultrasound done every 6 months last done 09/2023 Hx of basal cell carcinoma excision Hx of Achilles tendon repair History of esophagogastroduodenoscopy (EGD) (~01/16/20) multiple Previous back surgery Sanchez siva placement 1972 and then removal 1980 S/P hernia repair S/P shoulder surgery Family History Mother Breast cancer Sister Breast cancer Heart disease Diabetes Sister Breast cancer Hypertension Brother Cancer leukemia Brother Heart disease Diabetes Hypertension Maternal Grandmother Heart disease Father Diabetes Hypertension Social History Smoking/Tobacco Use Status: Never Smoking risk assessment performed?: Yes Alcohol Intake: former Year quit: 2019 Drug use: Current Sobriety Substance use type: does not use and former substance user Details: 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
[2025-02-18 15:06] VITALS: BP 152/67; PULSE 54; RESP 16; TEMP 36.5; O2SAT 93
[2025-02-19 12:23] LABS: Lyme Ab w Rflx to Lyme Confirm Equivocal (Negative)
[2025-02-19 16:58] LABS: Lyme IgG Ab Positive (Negative)
== END 2025-02-18 15:55 | disposition home or self-care (01) | DRG 442 ==
LOC: ER 21:22 → MS 21:50
PROVIDERS: Family Medicine; Admitting Provider Family Medicine; Emergency Provider Registered Nurse Emergency; PCP Physician Assistant; Responsible Provider Family Medicine; Visit Provider Family Medicine
DX: K76.82 Hepatic encephalopathy (principal); D61.818 Other pancytopenia; I85.10 Secondary esophageal varices without bleeding; D84.9 Immunodeficiency, unspecified; I10 Essential (primary) hypertension; K70.30 Alcoholic cirrhosis of liver without ascites; T47.3X6A Underdosing of saline and osmotic laxatives, initial encounter; Z91.148 Patient's other noncompliance with medication regimen for other reason; F10.91 Alcohol use, unspecified, in remission; R51.9 Headache, unspecified; R42 Dizziness and giddiness; R26.81 Unsteadiness on feet; W19.XXXA Unspecified fall, initial encounter; Z86.19 Personal history of other infectious and parasitic diseases; E11.42 Type 2 diabetes mellitus with diabetic polyneuropathy; K29.70 Gastritis, unspecified, without bleeding; Z87.11 Personal history of peptic ulcer disease; Z79.84 Long term (current) use of oral hypoglycemic drugs; D64.9 Anemia, unspecified
CPT/HCPCS: 00123; 36415; 80048; 80053; 85027; 86617; 93005; 96374; 96375; 99285; J1650; 70450; 80320; 81003; 81015; 82140; 83036; 83735; 85025; 85610; 85730; 86618; 93010; 99223; 99231; 99238; 99291; J1815; J1885; J2270; J2405

== ENCOUNTER → 2025-03-11 03:50 | Outpatient (CLI) | payer MEDICARE, SELFPAY ==
--- NOTE | 2025-03-11 09:30 | DI.US_ITS ---
APPROVED REPORT EXAM: Comprehensive 2D, Doppler, and color-flow Echocardiogram Patient Location: Out-Patient Accounting Consultant: Danny Fairbanks RDCS (AE) Indications: Heart murmur Other Information Study Quality: Fair Conclusion Normal left ventricular wall thickness and chamber size. Ejection fraction is 60%. Wall motion is normal Normal right ventricular size and function Both atria are normal in size Mild mitral annular calcification There is no hemodynamically significant valvular disease Mildly dilated ascending aorta Wall motion Left Ventricle The left ventricle is normal size. Left ventricular systolic function is normal. The left ventricular ejection fraction is within the normal range. There is normal left ventricular wall thickness. There is normal LV segmental wall motion. The left ventricular diastolic function is normal. There is no v entricular septal defect visualized. LVEF is 60%. Right Ventricle The right ventricle is normal size. The right ventricular systolic function is normal. Atria The left atrium size is normal. The right atrium size is normal. Aortic Valve The aortic valve is normal in structure. There is no aortic valvular stenosis. Trace aortic regurgitation. Mitral Valve Mild mitral annular calcification. No evidence of mitral valve stenosis. Trace mitral regurgitation. Tricuspid Valve The tricuspid valve is normal in structure. There is no tricuspid valve stenosis. Trace tricuspid regurgitation. Pulmonic Valve The pulmonary valve is normal in structure. There is no pulmonic valvular stenosis. There is no pulmonic valvular regurgitation. Great Vessels The aortic root is normal in size. The ascending aorta is mildly dilated. Aortic arch is normal in caliber. IVC is normal in size and collapses >50% with inspiration. Pericardium There is no pericardial effusion. 2D Dimensions IVSD d PLAX 0.77 cm M: 0.6-1.2 Ao Root d 2.84 cm M: 3.1 - 3.7 LVPW d PLAX 0.80 cm M: 0.6 - 1.2 Ao Asc Diam d 3.59 cm M: 2.6 - 3.4 LVID d PLAX 6.24 cm M: 4.2 - 5.8 LVDs 4.19 cm M: 2.5 - 4.0 LV EF Teichholz 60.3 % FS 32.87 % LV EDV (Teich) 196.9 mL LV ESV (Teich) 78.1 mL Stroke Vol Index (Teich) 62.86 M-Mode TAPSE 2.10 cm (M/F) >1.7 Auto EF LV EDV A4C 128.5 mL LV EDV A2C 135.9 mL LV EDV BP 136.0 mL LV ESV A4C 49.5 mL LV ESV A2C 55.9 mL LV ESV BP 54.0 mL LVEF(%) A4C 61.5 % LVEF(%) A2C 58.9 % LVEF(%) BP 60.3 % LV SV A4C 79.0 ml LV SV A2C 80.1 ml LV SV BP 82.0 ml LV CO A4C 4.0 L/min LV CO A2C 4.0 L/min LV CO BP 4.0 L/min HR A4C 51.21 BPM HR A2C 50.34 BPM LV EDV Index (BP) LA Volume LA Length A4C 4.8 cm LA Length A2C 4.2 cm LA Area A4C s 13.13 cm2 LA Area A2C s 14.33 cm2 LA Vol A4C A-L 30.48 mL LA Vol A2C A-L 41.51 mL LA Vol Biplane A-L 38.0 mL LA Vol/BSA A4C A-L LA Vol/BSA A2C A-L LA Vol/BSA BP A-L 20.1 mL/m2 LA Vol A4C MOD 29.0 mL LA Vol A2C MOD 36.4 mL LA Vol BP MOD 34.4 mL RA Volume RA Area A4C 11.1 cm2 RA ESV A4C (A-L) 24.8mL RA Vol/BSA A4C A-L RA Length A4C 4.2 cm RA ESV A4C (MOD) 24.5mL LV Diastology MV E' medial 0.077 (>0.07 m/s) MV E Vmax 0.73 (0.4-1.3 m/s) MV E/E' MED 9.50 (<14) MV A Vmax 0.75 (0.4-1.3 m/s) MV E' lateral 0.099 (>0.1 m/s) E/A Ratio 1.0 MV E/E' LAT 7.43 (<14) MV E' Average 0.088 m/s MV E/E'(average) 8.34 Aortic Valve AoV Vmax 1.66 m/s LVOT Vmax 1.35 m/s AoV Peak Grad 11.0 mmHg LVOT Peak Grad 7.3 mmHg AoV Area (Vmax) 2.27 cm2 LVOT VTI 0.317 m AoV VTI 0.373 m LVOT Mean Grad 3.6 mmHg AoV Mean Tj. 1.21 m/s LVOT SV 88.51 mL AoV Mean Grad 6.3 mmHg LVOT Diam s 1.85 cm AoV Area (VTI) 2.37 cm2 AV Regurg Peak Gr. 10.97 mmHg Velocity Ratio 0.81 Mitral Valve MV DT 352 (160-240 msec) Pulmonary Valve PV Vmax 1.25 (0.5-1.5 m/s) RVOT Vmax 0.97 m/s PV Peak Grad 6.2 mmHg RVOT Peak Gr. 3.8 mmHg PV Mean Tj 0.81 m/s RVOT VTI 0.238 m PV Mean Grad 3.2 mmHg RVOT Mean Gr. 2.2 mmHg Tricuspid Valve TV S' 0.15 m/s
== END ==
LOC: DI 03:51
PROVIDERS: PCP Physician Assistant; Visit Provider Physician Assistant
DX: R01.1 Cardiac murmur, unspecified (principal); I77.810 Thoracic aortic ectasia
CPT/HCPCS: 93306